=== PATIENT | female | born 1945 | race Caucasian/White ===

== ENCOUNTER 2017-11-19 14:23 | Observation (INO) | payer MEDICARE, OTHER, SELFPAY ==
[2017-11-19] VITALS (13 sets, daily range): BP systolic 150–209; BP diastolic 77–97; PULSE 72–80; RESP 12–18; TEMP 36.7–36.9; O2SAT 93–98; BMI 45.8; BMI 45.2
--- NOTE | 2017-11-19 14:29 | ED.RN ---
RESPIRATORY CALLED MULTIPLE TIMES FOR EKG, NO ANSWER. CHARGE NURSE MADE AWARE.
--- NOTE | 2017-11-19 15:19 | EKG12_ITS ---
Test Reason : CHEST TIGHTNESS Blood Pressure : / mmHG Vent. Rate : 068 BPM Atrial Rate : 068 BPM P-R Int : 168 ms QRS Dur : 098 ms QT Int : 416 ms P-R-T Axes : 040 008 051 degrees QTc Int : 442 ms Normal sinus rhythm Normal ECG Confirmed by NANETTE ROMERO, ROQUE ([id number]), editor magazine JULISA JEWELL ([id number] on 11/25/2017 2:01:51 PM Referred By: HELADIO/PAPO Confirmed By:ROQUE FITZPATRICK MD
[2017-11-19 15:32] LABS: Bacteria 0 SEEN /hpf (None Seen); Mucous, Urine 0 SEEN /hpf (<or=2+); Red Blood Cells-Urine 0 SEEN /hpf (0-5)
[2017-11-19 15:39] LABS: Color, Urine Yellow (Yellow); Glucose, Dipstick Normal (Normal); Ketone-Dipstick Negative (Negative); Leukocyte Esterase-Dipstick 500 /ul (Negative); Nitrite-Dipstick Negative (Negative); Occult Blood-Urine 10 /ul (Negative); Protein-Dipstick Negative (Negative); Urine Bilirubin Dipstick Negative (Negative); Urine Clarity Clear (Clear); Urine Urobilinogen Normal (Normal)
--- NOTE | 2017-11-19 15:50 | RAD_ITS ---
STUDY: X-RAY CHEST REASON FOR EXAM: Female, 72 years old. Hypertension. TECHNIQUE: Single AP portable view of the chest. COMPARISON: August 25, 2016 FINDINGS: The lungs are clear and expanded. Stable right upper lung granuloma. There is no demonstrated pleural abnormality. Normal size heart. Normal mediastinum and favian. Normal visualized pulmonary arteries. Normal visualized aortic arch and descending thoracic aorta. There are diffuse degenerative changes of the visualized thoracic spine. Normal visualized ribs, clavicles, and shoulders. There is no demonstrated abnormality of the visualized soft tissue structures of the upper abdomen. RAD/Chest 1 View (Portable) IMPRESSION: Degenerative changes, as described above. No demonstrated acute cardiopulmonary process. Electronically Signed: Rosales Peralta MD at 16:06 EST , Service support ,
[2017-11-19 15:54] LABS: Squamous Epithelial Cells - UA 0-5 SEEN /hpf (5-10); White Blood Cells 0-5 SEEN /hpf (0-5)
[2017-11-19 16:10] LABS: Absolute Lymphocyte Count 5.48 X10^3/ul (0.83-4.51); Basophil# 0.02 X10^3/uL; Basophil% 0.1 % (0-1); Differential Indicated SCAN CRITERIA MET; Eosinophil# 0.12 X10^3/uL; Eosinophils% 0.9 % (0-5); Hemoglobin 13.5 g/dl (12.0-15.0); Lymphocyte # 5.48 X10^3/ul (4.0); Lymphocyte % 39.3 % (19-41); Mean Corp Hgb Conc 32.1 g/gl (32-36); Mean Corpuscular Hgb 30.4 pg (27.0-32.0); Mean Corpuscular Volume 94.6 fL (81-99); Mean Platelet Vol. 10.4 fl (6.2-12.0); Monocyte# 1.28 X10^3/uL; Monocyte% 9.2 % (0-10); Neutrophil % 50.3 % (47-70); POSITIVE COUNT NO; POSITIVE DIFFERENTIAL YES; POSITIVE MORPHOLOGY NO; Platelet Count 230 K/mm3 (150-450); RBC Distribution Width CV 13.3 % (11.6-14.6); RBC Distribution Width SD 45.8 fl (35.1-43.9); Red Blood Count 4.44 M/mm3 (4.2-5.4); White Blood Count 13.9 K/mm3 (4.4-11.0)
[2017-11-19 16:27] LABS: AST(SGOT) 24 U/L (15-37); Alanine Aminotransfer ALT/SGPT 12 U/L (13-56); Albumin, Serum 3.7 g/dL (3.2-5.0); Alkaline Phosphatase 67 U/L (45-117); Anion Gap 8 (5-15); BUN 11 mg/dL (7-18); BUN/Creat Ratio 13.9 RATIO (10-20); Calcium,Total 9.3 mg/dL (8.5-10.1); Chloride 104 mmol/L (98-107); Creatinine, Serum 0.79 mg/dL (0.55-1.02); EST Glomerular Filtration Rate 75 mL/min (>60); Est Glom Filt Rate - Afr Amer 91 mL/min (>60); Estimated Creatinine Clearance 40.83 ml/min; Globulin 3.6 g/dL (2.2-4.2); Glucose 86 mg/dL (74-106); Potassium 3.4 mmol/L (3.5-5.1); Protein, Total 7.3 g/dL (6.4-8.2); Sodium Level 143 mmol/L (136-145)
[2017-11-19 16:34] LABS: Differential Comment SCANNED
[2017-11-19 16:35] LABS: Thyroid Stim Hormone (TSH) 1.94 uIU/mL (0.358-3.74)
[2017-11-19] MEDS: Acetaminophen 500 MG Tablet 1000 MG PO (18:04)
--- NOTE | 2017-11-19 18:33 | CT_ITS ---
STUDY: CT BRAIN WITHOUT CONTRAST REASON FOR EXAM: Female, 72 years old. Headache. Hypertension. RADIATION DOSAGE (If Supplied By Facility): CTDIvol = ( 44.99 ) mGy, DLP = ( 815.79 ) mGycm TECHNIQUE: Transaxial CT imaging of the brain was performed without administration of intravenous contrast material. Individualized dose optimization techniques were used for this CT. COMPARISON: None. FINDINGS: Normal soft tissue structures. Normal calvarium. There is mild cerebral atrophy with widening of the extra-axial spaces and ventricular dilatation. There are areas of decreased attenuation within the white matter tracts of the supratentorial brain, consistent with microvascular disease changes. Normal basal ganglia and thalami. Normal brainstem. Normal cerebellum. There is no intracranial hemorrhage. There are no findings of an acute ischemic infarction. There is mucoperiosteal inflammatory disease of the paranasal sinuses consistent with mild chronic sinusitis. CT/Brain/Head without Contrast IMPRESSION: Chronic involutional changes of the brain. Electronically Signed: Rosales Peralta MD at 19:08 EST , Service support ,
[2017-11-19] MEDS: DiphenhydrAMINE 50 MG/ML Syringe 12.5 MG IV (18:55)
--- NOTE | 2017-11-19 20:43 | PCM.HP.STD ---
Problem List (1) GERD (gastroesophageal reflux disease) Status: Chronic (2) Sleep apnea in adult Status: Suspected (3) Osteoarthritis Status: Chronic (4) Morbid obesity with BMI of 40.0-44.9, adult Status: Chronic (5) Peripheral neuropathy Status: Chronic (6) Hypertensive urgency, malignant Status: Acute (7) Restless leg syndrome Status: Suspected Comment: she attributes this to peripheral neuropathy but why does she have peripheral neuropathy? (8) Chest pain Status: Acute (9) Hypertensive urgency Status: Acute (10) Headache Status: Acute History of Present Illness Date of Admission: 11/19/17 Chief Complaint: Multiple complaints including chest pain, headache and uncontrolled hypertension. The patient is a 72 year old F with multiple comorbidities but no history of coronary artery disease came to ER with headache, chest pain and blood pressure was high. About 2 days ago, patient's chronic facial flushing got worse with filling of warmth, chest discomfort/pressure and mild lip swelling and went to ER and was sent home, with attribution to lisinopril 40 mg on which patient is on for more than 10 years. Then patient went to PCP today and found to have blood pressure 209/90 along with headache, mainly frontoparietal and behind the eyes but no blurry vision or dizziness. Patient also complained of chest pressure which is more localized on the left upper side. Patient is morbid obese and physically deconditioned but denies shortness of breath on exertion. Her walking is mainly affected by chronic lower back pain. Prior to that, she had pharmacological stress test in 07/2016 which was negative with EF 69%. Echo was done in July 2016 at that time and found to have EF 65% with no regional wall motion abnormality. Left ventricular normal size and systolic function. RV normal size and systolic function. LA mildly enlarged. Normal right atrium. No significant valvular stenosis/insufficiency other than mitral valve chordae are thickened and/or calcified. Patient blood pressure has been controlled even on lisinopril 40 mg and HCTZ 25 mg. In ED, her blood pressure was high. 210/78. No tachypnea/hypoxia or tachycardia. EKG shows normal sinus rhythm at [address]-T changes. No significant change from previous EKG of July 2016. [] Past Medical History Past Medical History (Chronic Problems): Chronic Problems GERD (gastroesophageal reflux disease) (Chronic) Osteoarthritis (Chronic) Morbid obesity with BMI of 40.0-44.9, adult (Chronic) Peripheral neuropathy (Chronic) Allergies bee pollen Allergy (Verified 11/19/17 14:24) Swelling erythromycin base [Erythromycin Base] Allergy (Verified 07/26/16 13:54) Rash lisinopril Allergy (Verified 11/19/17 14:24) Swelling latex Adverse Reaction (Verified 07/26/16 13:54) Swelling Home Medications: Ambulatory Orders Medication Instructions Recorded Multivitamins,Therapeutic 1 tablet PO DAILY 11/07/13 [Multivitamin] Aspirin [Aspirin, Baby] 81 mg PO DAILY@0800 03/11/15 Gabapentin [Neurontin] 300 mg PO TIDCM 03/11/15 Hydrochlorothiazide [Hctz] 25 mg PO DAILY 11/19/17 Meclizine HCl [Antivert] 25 mg PO TID PRN PRN 11/19/17 Paroxetine HCl [Paxil] 10 mg PO DAILY 11/19/17 Propranolol HCl [Inderal LA (Beta 60 mg PO DAILY 11/19/17 [place])] Surgical History: hysterectomy - Bilateral oophorectomy with 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 Psychiatric History: Anxiety, Depression, - - Patient suffered from anxiety/depression when her and was on Paxil but no longer takes this medication. FOOD SERVICES MANAGER History: No pertinent FOOD SERVICES MANAGER history, - - Benign ovarian mass Smoking Status: Never smoker - *Family History Paternal History Items: No pertinent history Maternal History Items: Hypertension Review of Systems Constitutional: Reports: Fatigue. Denies: Chills, Fever, Weight Change Eyes: Denies: Blurred vision, Redness, Vision Change HEENT: Reports: Head Aches, Sinus Congestion. Denies: Difficulty Hearing, Difficulty Swallowing, Sinus Drainage Cardiovascular: Reports: Chest Pressure. Denies: Chest Pain, Palpitations Respiratory: Denies: Cough, Shortness of breath at rest, Sputum production, Wheezing Gastrointestinal: Denies: Abdominal Pain, Nausea, Vomiting Genitourinary: Denies: Dysuria Musculoskeletal: Denies: Joint Pain, Joint Tenderness Skin: Denies: Rash, Wounds Neurological: Denies: Numbness, Tingling, Focal weakness Psychiatric: Denies: Anxiety, Depression, Homicidal Ideations, Suicidal Ideations Hematologic/ Lymphatic: Denies: Easy Bruising, Easy Bleeding VTE Information - Inpt Only VTE Present on Admission: No VTE Mechan Device Prophylaxis: SCD's VTE Pharm Prophylaxis ordered?: Yes Patient Problems: Active and Suspected Problems Chest pain (Acute) Hypertensive urgency (Acute) Headache (Acute) - Physical Exam General: Alert, Oriented x3, Cooperative HEENT: Atraumatic, PERRLA, EOMI, Normocephalic Neck: Supple, No JVD, Negative Carotid Bruits Lungs: Clear to auscultation, Normal air movement, No rhonchi, No wheeze, No rales Cardiovascular: Regular rate, Regular Rhythm, Normal S1, Normal S2, No murmurs Abdomen: Bowel Sounds Present, Soft, Non Tender, Non-Distended Extremities: Capillary Refill Less than 3 Seconds, Edema Skin: No rashes, No breakdown Musculoskeletal: No Tenderness to Palpation of Joints or Extremities, Arthritic Changes, - - Bilateral TKR Neurological: Cranial nerves II-XII grossly intact Psych/Mental Status: Normal Affect, Appropriate Vital Signs Temp Pulse Resp BP Pulse Ox 98.0 F 73 15 163/78 H 93 11/19/17 20:00 11/19/17 20:00 11/19/17 20:00 11/19/17 20:00 11/19/17 20:00 Oxygen Delivery Method Room Air Weight: 258 lb 13.163 oz Body Mass Index (BMI) 45.8 Laboratory Tests Past 24 Hrs 11/19/17 11/19/17 11/19/17 15:25 15:35 15:35 WBC 13.9 H RBC 4.44 Hgb 13.5 Hct 42.0 MCV 94.6 MCH 30.4 MCHC 32.1 RDW 13.3 RDW Differential 45.8 H Plt Count 230 MPV 10.4 Immature Gran % (Auto) 0.200 Neut % (Auto) 50.3 Lymph % (Auto) 39.3 [place] % (Auto) 9.2 Eos % (Auto) 0.9 Baso % (Auto) 0.1 Absolute Neuts (auto) 7.0 Absolute Lymphs (auto) 5.48 H Total Counted Not Reportable Differential Comment SCANNED Sodium 143 Potassium 3.4 L Chloride 104 Carbon Dioxide 31.0 Anion Gap 8 BUN 11 Creatinine 0.79 Estim Creat Clear Calc 40.83 Est GFR (MDRD) Af Amer 91 Est GFR (MDRD) Non-Af 75 BUN/Creatinine Ratio 13.9 Glucose 86 Calcium 9.3 Total Bilirubin 0.30 AST 24 ALT 12 L Alkaline Phosphatase 67 Troponin I < 0.02 Total Protein 7.3 Albumin 3.7 Globulin 3.6 Albumin/Globulin Ratio 1.0 TSH Urine Color Yellow Urine Clarity Clear Urine pH 7.0 Ur Specific [place] 1.010 Urine Protein Negative Urine Glucose (UA) Normal Urine Ketones Negative Urine Occult Blood 10 H Urine Nitrite Negative Urine Bilirubin Negative Urine Urobilinogen Normal Ur Leukocyte Esterase 500 H Urine RBC 0 SEEN Urine WBC 0-5 SEEN Ur Squamous Epith Cells 0-5 SEEN Urine Bacteria 0 SEEN Urine Mucus 0 SEEN 11/19/17 15:35 WBC RBC Hgb Hct MCV MCH MCHC RDW RDW Differential Plt Count MPV Immature Gran % (Auto) Neut % (Auto) Lymph % (Auto) [place] % (Auto) Eos % (Auto) Baso % (Auto) Absolute Neuts (auto) Absolute Lymphs (auto) Total Counted Differential Comment Sodium Potassium Chloride Carbon Dioxide Anion Gap BUN Creatinine Estim Creat Clear Calc Est GFR (MDRD) Af Amer Est GFR (MDRD) Non-Af BUN/Creatinine Ratio Glucose Calcium Total Bilirubin AST ALT Alkaline Phosphatase Troponin I Total Protein Albumin Globulin Albumin/Globulin Ratio TSH 1.94 Urine Color Urine Clarity Urine pH Ur Specific [place] Urine Protein Urine Glucose (UA) Urine Ketones Urine Occult Blood Urine Nitrite Urine Bilirubin Urine Urobilinogen Ur Leukocyte Esterase Urine RBC Urine WBC Ur Squamous Epith Cells Urine Bacteria Urine Mucus Assessment/Plan Active and Suspected Problems Chest pain (Acute) Hypertensive urgency (Acute) Headache (Acute) The patient is a 72 year old F with multiple comorbidities but no history of coronary artery disease came to ER with headache, chest pain and blood pressure was high. About 2 days ago, patient's chronic facial flushing got worse with filling of warmth, chest discomfort/pressure and mild lip swelling and went to ER and was sent home, with attribution to lisinopril 40 mg on which patient is on for more than 10 years. Then patient went to PCP today and found to have blood pressure 209/90 along with headache, mainly frontoparietal and behind the eyes but no blurry vision or dizziness. Patient also complained of chest pressure which is more localized on the left upper side. Patient is morbid obese and physically deconditioned but denies shortness of breath on exertion. Her walking is mainly affected by chronic lower back pain. Prior to that, she had pharmacological stress test in 07/2016 which was negative with EF 69%. Echo was done in July 2016 at that time and found to have EF 65% with no regional wall motion abnormality. Left ventricular normal size and systolic function. RV normal size and systolic function. LA mildly enlarged. Normal right atrium. No significant valvular stenosis/insufficiency other than mitral valve chordae are thickened and/or calcified. Patient blood pressure has been controlled even on lisinopril 40 mg and HCTZ 25 mg. In ED, her blood pressure was high. 210/78. No tachypnea/hypoxia or tachycardia. EKG shows normal sinus rhythm at [address]-T changes. No significant change from previous EKG of July 2016. [] 1. Atypical chest pain/pressure with uncontrolled blood pressure, hypertensive urgency: During previous admission in July 2016 she had similar problem chest pain and uncontrolled hypertension. ACS protocol with serial cardiac enzymes and Lexiscan stress test tomorrow morning. 2. Hypertensive urgency even on 3 medications, possible secondary hypertension: Renal artery duplex scan ordered. TSH is normal. Free T4 and serum cortisol ordered. On hydralazine p.o. scheduled and IV hydralazine as needed for systolic blood pressure more than 180 mmHg. Blood pressure still uncontrolled, will need to be further investigation for secondary hypertension by PCP or corporate general manager. Patient will also need outpatient sleep study to rule out possible cause for uncontrolled hypertension 3. Headache, flushing possible related to migraine/chronic headache/cervical neuropathy: Patient has not seen neurologist in the past. She had MRI brain in May 2015 which did not show acute change. She also had cervical spine MRI in 2014 which showed moderate/severe central canal/and foraminal stenosis at C5-C6 and C6-C7 with multilevel degenerative changes. Consult neurologist, Dr. Patel. 4. Mild hypokalemia: Patient also had hypokalemia during last admission. As an outpatient she needs to be ruled out for a adrenal cortical tumor/[place]'s syndrome/aldosteronoma/ renin-angiotensin aldosterone axis disorder, hormonal cause for secondary hypertension. Potassium replacement. 5. Other chronic disorders including morbid obesity, osteoarthritis of bilateral knees, hips and lumbar spine. Patient has peripheral neuropathy. DVT prophylaxis: On Lovenox 40 mg subcu daily and bilateral SCDs. Code Visit Inpatient E&M: 80037 Init Hosp L3
--- NOTE | 2017-11-19 20:57 | HP.PCM_ITS ---
Problem List (1) GERD (gastroesophageal reflux disease) Status: Chronic (2) Sleep apnea in adult Status: Suspected (3) Osteoarthritis Status: Chronic (4) Morbid obesity with BMI of 40.0-44.9, adult Status: Chronic (5) Peripheral neuropathy Status: Chronic (6) Hypertensive urgency, malignant Status: Acute (7) Restless leg syndrome Status: Suspected Comment: she attributes this to peripheral neuropathy but why does she have peripheral neuropathy? (8) Chest pain Status: Acute (9) Hypertensive urgency Status: Acute (10) Headache Status: Acute History of Present Illness Date of Admission: 11/19/17 Chief Complaint: Multiple complaints including chest pain, headache and uncontrolled hypertension. The patient is a 72 year old F with multiple comorbidities but no history of coronary artery disease came to ER with headache, chest pain and blood pressure was high. About 2 days ago, patient's chronic facial flushing got worse with filling of warmth, chest discomfort/pressure and mild lip swelling and went to ER and was sent home, with attribution to lisinopril 40 mg on which patient is on for more than 10 years. Then patient went to PCP today and found to have blood pressure 209/90 along with headache, mainly frontoparietal and behind the eyes but no blurry vision or dizziness. Patient also complained of chest pressure which is more localized on the left upper side. Patient is morbid obese and physically deconditioned but denies shortness of breath on exertion. Her walking is mainly affected by chronic lower back pain. Prior to that, she had pharmacological stress test in 07/2016 which was negative with EF 69%. Echo was done in July 2016 at that time and found to have EF 65% with no regional wall motion abnormality. Left ventricular normal size and systolic function. RV normal size and systolic function. LA mildly enlarged. Normal right atrium. No significant valvular stenosis/insufficiency other than mitral valve chordae are thickened and/or calcified. Patient blood pressure has been controlled even on lisinopril 40 mg and HCTZ 25 mg. In ED, her blood pressure was high. 210/78. No tachypnea/hypoxia or tachycardia. EKG shows normal sinus rhythm at [address]-T changes. No significant change from previous EKG of July 2016. [] Past Medical History Past Medical History (Chronic Problems): Chronic Problems GERD (gastroesophageal reflux disease) (Chronic) Osteoarthritis (Chronic) Morbid obesity with BMI of 40.0-44.9, adult (Chronic) Peripheral neuropathy (Chronic) Allergies bee pollen Allergy (Verified 11/19/17 14:24) Swelling erythromycin base [Erythromycin Base] Allergy (Verified 07/26/16 13:54) Rash lisinopril Allergy (Verified 11/19/17 14:24) Swelling latex Adverse Reaction (Verified 07/26/16 13:54) Swelling Home Medications: Ambulatory Orders Medication Instructions Recorded Multivitamins,Therapeutic 1 tablet PO DAILY 11/07/13 [Multivitamin] Aspirin [Aspirin, Baby] 81 mg PO DAILY@0800 03/11/15 Gabapentin [Neurontin] 300 mg PO TIDCM 03/11/15 Hydrochlorothiazide [Hctz] 25 mg PO DAILY 11/19/17 Meclizine HCl [Antivert] 25 mg PO TID PRN PRN 11/19/17 Paroxetine HCl [Paxil] 10 mg PO DAILY 11/19/17 Propranolol HCl [Inderal LA (Beta 60 mg PO DAILY 11/19/17 [place])] Surgical History: hysterectomy - Bilateral oophorectomy with 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 Psychiatric History: Anxiety, Depression, - - Patient suffered from anxiety/ depression when her and was on Paxil but no longer takes this medication. QUALITY FACILITATOR History: No pertinent QUALITY FACILITATOR history, - - Benign ovarian mass Smoking Status: Never smoker - *Family History Paternal History Items: No pertinent history Maternal History Items: Hypertension Review of Systems Constitutional: Reports: Fatigue. Denies: Chills, Fever, Weight Change Eyes: Denies: Blurred vision, Redness, Vision Change HEENT: Reports: Head Aches, Sinus Congestion. Denies: Difficulty Hearing, Difficulty Swallowing, Sinus Drainage Cardiovascular: Reports: Chest Pressure. Denies: Chest Pain, Palpitations Respiratory: Denies: Cough, Shortness of breath at rest, Sputum production, Wheezing Gastrointestinal: Denies: Abdominal Pain, Nausea, Vomiting Genitourinary: Denies: Dysuria Musculoskeletal: Denies: Joint Pain, Joint Tenderness Skin: Denies: Rash, Wounds Neurological: Denies: Numbness, Tingling, Focal weakness Psychiatric: Denies: Anxiety, Depression, Homicidal Ideations, Suicidal Ideations Hematologic/ Lymphatic: Denies: Easy Bruising, Easy Bleeding VTE Information - Inpt Only VTE Present on Admission: No VTE Mechan Device Prophylaxis: SCD's VTE Pharm Prophylaxis ordered?: Yes Patient Problems: Active and Suspected Problems Chest pain (Acute) Hypertensive urgency (Acute) Headache (Acute) - Physical Exam General: Alert, Oriented x3, Cooperative HEENT: Atraumatic, PERRLA, EOMI, Normocephalic Neck: Supple, No JVD, Negative Carotid Bruits Lungs: Clear to auscultation, Normal air movement, No rhonchi, No wheeze, No rales Cardiovascular: Regular rate, Regular Rhythm, Normal S1, Normal S2, No murmurs Abdomen: Bowel Sounds Present, Soft, Non Tender, Non-Distended Extremities: Capillary Refill Less than 3 Seconds, Edema Skin: No rashes, No breakdown Musculoskeletal: No Tenderness to Palpation of Joints or Extremities, Arthritic Changes, - - Bilateral TKR Neurological: Cranial nerves II-XII grossly intact Psych/Mental Status: Normal Affect, Appropriate Vital Signs Temp Pulse Resp BP Pulse Ox 98.0 F 73 15 163/78 H 93 11/19/17 20:00 11/19/17 20:00 11/19/17 20:00 11/19/17 20:00 11/19/17 20:00 Oxygen Delivery Method Room Air Weight: 258 lb 13.163 oz Body Mass Index (BMI) 45.8 Laboratory Tests Past 24 Hrs 11/19/17 11/19/17 11/19/17 15:25 15:35 15:35 WBC 13.9 H RBC 4.44 Hgb 13.5 Hct 42.0 MCV 94.6 MCH 30.4 MCHC 32.1 RDW 13.3 RDW Differential 45.8 H Plt Count 230 MPV 10.4 Immature Gran % (Auto) 0.200 Neut % (Auto) 50.3 Lymph % (Auto) 39.3 [place] % (Auto) 9.2 Eos % (Auto) 0.9 Baso % (Auto) 0.1 Absolute Neuts (auto) 7.0 Absolute Lymphs (auto) 5.48 H Total Counted Not Reportable Differential Comment SCANNED Sodium 143 Potassium 3.4 L Chloride 104 Carbon Dioxide 31.0 Anion Gap 8 BUN 11 Creatinine 0.79 Estim Creat Clear Calc 40.83 Est GFR (MDRD) Af Amer 91 Est GFR (MDRD) Non-Af 75 BUN/Creatinine Ratio 13.9 Glucose 86 Calcium 9.3 Total Bilirubin 0.30 AST 24 ALT 12 L Alkaline Phosphatase 67 Troponin I < 0.02 Total Protein 7.3 Albumin 3.7 Globulin 3.6 Albumin/Globulin Ratio 1.0 TSH Urine Color Yellow Urine Clarity Clear Urine pH 7.0 Ur Specific [place] 1.010 Urine Protein Negative Urine Glucose (UA) Normal Urine Ketones Negative Urine Occult Blood 10 H Urine Nitrite Negative Urine Bilirubin Negative Urine Urobilinogen Normal Ur Leukocyte Esterase 500 H Urine RBC 0 SEEN Urine WBC 0-5 SEEN Ur Squamous Epith Cells 0-5 SEEN Urine Bacteria 0 SEEN Urine Mucus 0 SEEN 11/19/17 15:35 WBC RBC Hgb Hct MCV MCH MCHC RDW RDW Differential Plt Count MPV Immature Gran % (Auto) Neut % (Auto) Lymph % (Auto) [place] % (Auto) Eos % (Auto) Baso % (Auto) Absolute Neuts (auto) Absolute Lymphs (auto) Total Counted Differential Comment Sodium Potassium Chloride Carbon Dioxide Anion Gap BUN Creatinine Estim Creat Clear Calc Est GFR (MDRD) Af Amer Est GFR (MDRD) Non-Af BUN/Creatinine Ratio Glucose Calcium Total Bilirubin AST ALT Alkaline Phosphatase Troponin I Total Protein Albumin Globulin Albumin/Globulin Ratio TSH 1.94 Urine Color Urine Clarity Urine pH Ur Specific [place] Urine Protein Urine Glucose (UA) Urine Ketones Urine Occult Blood Urine Nitrite Urine Bilirubin Urine Urobilinogen Ur Leukocyte Esterase Urine RBC Urine WBC Ur Squamous Epith Cells Urine Bacteria Urine Mucus Assessment/Plan Active and Suspected Problems Chest pain (Acute) Hypertensive urgency (Acute) Headache (Acute) The patient is a 72 year old F with multiple comorbidities but no history of coronary artery disease came to ER with headache, chest pain and blood pressure was high. About 2 days ago, patient's chronic facial flushing got worse with filling of warmth, chest discomfort/pressure and mild lip swelling and went to ER and was sent home, with attribution to lisinopril 40 mg on which patient is on for more than 10 years. Then patient went to PCP today and found to have blood pressure 209/90 along with headache, mainly frontoparietal and behind the eyes but no blurry vision or dizziness. Patient also complained of chest pressure which is more localized on the left upper side. Patient is morbid obese and physically deconditioned but denies shortness of breath on exertion. Her walking is mainly affected by chronic lower back pain. Prior to that, she had pharmacological stress test in 07/2016 which was negative with EF 69%. Echo was done in July 2016 at that time and found to have EF 65% with no regional wall motion abnormality. Left ventricular normal size and systolic function. RV normal size and systolic function. LA mildly enlarged. Normal right atrium. No significant valvular stenosis/insufficiency other than mitral valve chordae are thickened and/or calcified. Patient blood pressure has been controlled even on lisinopril 40 mg and HCTZ 25 mg. In ED, her blood pressure was high. 210/78. No tachypnea/hypoxia or tachycardia. EKG shows normal sinus rhythm at [address]-T changes. No significant change from previous EKG of July 2016. [] 1. Atypical chest pain/pressure with uncontrolled blood pressure, hypertensive urgency: During previous admission in July 2016 she had similar problem chest pain and uncontrolled hypertension. ACS protocol with serial cardiac enzymes and Lexiscan stress test tomorrow morning. 2. Hypertensive urgency even on 3 medications, possible secondary hypertension : Renal artery duplex scan ordered. TSH is normal. Free T4 and serum cortisol ordered. On hydralazine p.o. scheduled and IV hydralazine as needed for systolic blood pressure more than 180 mmHg. Blood pressure still uncontrolled, will need to be further investigation for secondary hypertension by PCP or evp strategy. Patient will also need outpatient sleep study to rule out possible cause for uncontrolled hypertension 3. Headache, flushing possible related to migraine/chronic headache/cervical neuropathy: Patient has not seen neurologist in the past. She had MRI brain in May 2015 which did not show acute change. She also had cervical spine MRI in 2014 which showed moderate/severe central canal/and foraminal stenosis at C5-C6 and C6-C7 with multilevel degenerative changes. Consult neurologist, Dr. Patel. 4. Mild hypokalemia: Patient also had hypokalemia during last admission. As an outpatient she needs to be ruled out for a adrenal cortical tumor/Campbell's syndrome/aldosteronoma/ renin-angiotensin aldosterone axis disorder, hormonal cause for secondary hypertension. Potassium replacement. 5. Other chronic disorders including morbid obesity, osteoarthritis of bilateral knees, hips and lumbar spine. Patient has peripheral neuropathy. DVT prophylaxis: On Lovenox 40 mg subcu daily and bilateral SCDs. Code Visit Inpatient E&M: 34449 Init Hosp L3
[2017-11-19 22:01] LABS: Magnesium 1.9 mg/dL (1.6-2.6); T4 Free Direct 1.19 ng/dL (0.76-1.46)
[2017-11-19 22:07] LABS: BNP,B-Type NATRIURETIC PEPTIDE 37.3 pg/mL (0-100)
[2017-11-19] MEDS: Gabapentin 300 MG Capsule PO (22:32)
[2017-11-19] MEDS: Enoxaparin 40 MG/0.4 ML Syringe SC (22:34)
[2017-11-19] MEDS: oxyCODONE 5 MG Tablet PO (23:09)
[2017-11-20] VITALS (7 sets, daily range): BP systolic 125–155; BP diastolic 59–74; PULSE 59–72; RESP 16; TEMP 36.5–36.7; O2SAT 98–99
--- NOTE | 2017-11-20 00:29 | ED.VISSUMM ---
- ER Visit Summary Date of Service: 11/20/17 Chief Complaint: Hypertension History of Present Illness: The patient is a 72 F who was sent from her PCPs office today with a blood pressure of 2 9 systolic. Patient notes chest pain and headache. Patient states that she has episodes where her blood pressure is very high. She states that she has episodes of facial flushing feels weak when that happens. 2 days ago she had an episode with some lip swelling and went to [place] he was felt to have angioedema related to her lisinopril. Lisinopril stopped and she was to follow-up with her PCP today. The patient states that she takes hydrochlorothiazide as well as propranolol. The propranolol however has been for muscle tremor is dose at 60 mg once a day. Patient has a history of morbid obesity hypertension sleep apnea RLS. Patient tells me she has been on many different blood pressure regimens and none of the been able to control her blood pressure. 2016 she is admitted to the hospital for hypertensive urgency and negatives stress test. She states she has not seen cardiology or nephrology for hypertension. She denies any known renal artery scan or other workup for secondary cause of hypertension Physical Examination: Blood pressure 209/78 temperature 98.5 heart rate 72 respirations are 18 pulse ox 97% Gen: Well-nourished well-developed Head: Normocephalic atraumatic has some facial flushing Eyes: Perrl EOMI ENT: TMs clear no rhinorrhea moist mucous membranes Neck: Supple no lymphadenopathy no JVD nontender CVS: Regular rate rhythm no murmurs normal S1-S2 Respiratory: No distress clear to auscultation bilaterally chest nontender Abdomen: Soft nontender nondistended normal bowel sounds no masses Back: Nontender Extremity: Nontender no edema Skin: Normal color no rash Neuro: alert orientated ?3 CN II-XII intact normal strength sensation reflexes gait cerebellar Psych: Normal affect normal mood Test Results: EKG sinus at a rate of 68 chest x-ray negative CT the brain negative CBC chemistries showed a potassium 3.4 and a white count of 13.9. Troponin negative TSH 1.94. Emergency Department Course and Treatment: She received several doses of hydralazine which improved her blood pressure however the patient continued to have headache. The chest pain resolved. Patient notes that when her face gets very flushed she often times has diarrhea and some skin itching. She received a dose of Benadryl and some Pepcid here. Family states that perhaps the facial flushing is somewhat improved afterwards. However the patient continues to feel poorly. She does not feel safe going home. I think it is reasonable to bring her in. Impression:. Hypertensive urgency This note was generated with [employer] dictation software. It may contain incorrect words, spelling, and punctuation that were not noted in review of the chart prior to signing ED Disposition - Plan for ED Patient: Disposition: Acute Care Hospital [facility] Chief Complaint: Hypertension
[2017-11-20] MEDS: Aspirin 81 MG TAB.CHEW PO (05:48)
--- NOTE | 2017-11-20 05:55 | EKG12_ITS ---
Test Reason : AM EKG Blood Pressure : / mmHG Vent. Rate : 058 BPM Atrial Rate : 058 BPM P-R Int : 170 ms QRS Dur : 094 ms QT Int : 470 ms P-R-T Axes : 046 009 052 degrees QTc Int : 461 ms Sinus bradycardia Nonspecific T wave abnormality Abnormal ECG When compared with ECG of 19-NOV-2017 14:42, MANUAL COMPARISON REQUIRED, DATA IS UNCONFIRMED Confirmed by NANETTE ROMERO, ROQUE ([id number]), newspaper managing editor JULISA JEWELL ([id number]) on 11/26/2017 1:19:19 PM Referred By: DR MURILLO Confirmed By:ROQUE FITZPATRICK MD
[2017-11-20 06:52] LABS: Absolute Lymphocyte Count 4.69 X10^3/ul (0.83-4.51); Absolute Neutrophil Count 2.9 X10^3/uL (2.0-7.7); Basophil# 0.02 X10^3/uL; Basophil% 0.2 % (0-1); Eosinophils% 2.4 % (0-5); Hematocrit 42.1 % (37-47); Hemoglobin 13.4 g/dl (12.0-15.0); Lymphocyte # 4.69 X10^3/ul (4.0); Lymphocyte % 55.1 % (19-41); Mean Corp Hgb Conc 31.8 g/gl (32-36); Mean Corpuscular Hgb 30.7 pg (27.0-32.0); Mean Corpuscular Volume 96.6 fL (81-99); Monocyte# 0.72 X10^3/uL; Monocyte% 8.5 % (0-10); Neutrophil # 2.86 X10^3/uL (2.7-7.7); Neutrophil % 33.6 % (47-70); Platelet Count 218 K/mm3 (150-450); RBC Distribution Width CV 13.5 % (11.6-14.6); RBC Distribution Width SD 47.6 fl (35.1-43.9); Red Blood Count 4.36 M/mm3 (4.2-5.4); White Blood Count 8.5 K/mm3 (4.4-11.0)
[2017-11-20 06:58] LABS: POSITIVE COUNT NO; POSITIVE DIFFERENTIAL NO; POSITIVE MORPHOLOGY NO
[2017-11-20 07:07] LABS: Prothrombin Time (Protime)PT. 13.6 SECONDS (11.7-14.9)
[2017-11-20 07:08] LABS: Partial Thromboplast Time 33.9 Seconds (24.1-36.2)
[2017-11-20 07:17] LABS: Anion Gap 7 (5-15); BUN 11 mg/dL (7-18); BUN/Creat Ratio 13.6 RATIO (10-20); Calcium,Total 8.9 mg/dL (8.5-10.1); Chloride 104 mmol/L (98-107); Cholesterol 173 mg/dL (200); Creatinine, Serum 0.81 mg/dL (0.55-1.02); EST Glomerular Filtration Rate 74 mL/min (>60); Est Glom Filt Rate - Afr Amer 89 mL/min (>60); Estimated Creatinine Clearance 50.41 ml/min; Glucose 92 mg/dL (74-106); High Density Lipoprotein 41 mg/dL; Potassium 3.7 mmol/L (3.5-5.1); Sodium Level 143 mmol/L (136-145); Thyroid Stim Hormone (TSH) 8.05 uIU/mL (0.358-3.74); Triglycerides 166 mg/dL; Very Low Density Lipoprotein 33 mg/dL (5-40)
--- NOTE | 2017-11-20 08:32 | STRESSREP ---
Stress Test Report Pharmacologic myocardial perfusion stress test. 72-year-old lady with a history of chest pain. Stress protocol: Resting EKG demonstrates normal sinus rhythm with a rate of 63 bpm normal intervals noted. Resting blood pressure is 140/90 mmHg. 0.4 mg of regadenoson was infused per usual protocol followed by rapid intravenous saline flush injection continuous EKG monitoring was performed. The patient maintained sinus rhythm throughout the recording. At rest there were no ST or T-wave changes noted suggest abnormal flow reserve at peak infusion no ST or T-wave changes were noted suggest abnormal flow reserve. The maximum heart rate was 96 bpm which was 65% of the maximum predicted heart rate. The maximum workload was 1 metabolic equivalent. The resting blood pressure was 140/90 mmHg. Myocardial perfusion protocol. 14.8 mCi of technetium 99m sestamibi was injected at rest. 0.4 mg of regadenoson was infused per usual protocol. At peak infusion 44.5 mCi of 90 9M sestamibi was injected. Stress images were obtained. Stress and rest images were reconstructed and compared in the short axis vertical long and horizontal long axis. Gated images were also obtained. Perfusion SPECT analysis: Review of the stress images demonstrate normal uptake of tracer noted in all areas myocardium except for small portion of the apex this is present on the stress and resting images suggestive of mild apical perfusion abnormality. No obvious ischemia is noted. No previous infarct is present. Gated SPECT analysis. The gated ejection fraction is 79%. Conclusion: Normal pharmacologic myocardial perfusion stress test.
[2017-11-20] MEDS: hydroCHLOROthiazide 25 MG Tablet PO (08:41)
[2017-11-20] MEDS: Multivitamins,Therapeutic Tablet 1 TABLET PO (08:41)
[2017-11-20] MEDS: Gabapentin 300 MG Capsule PO ×2 (08:41→11:22)
[2017-11-20] MEDS: amLODIPine 5 MG Tablet PO (08:41)
[2017-11-20] MEDS: PARoxetine 10 MG Tablet PO (08:41)
[2017-11-20] MEDS: Propranolol LA 60 MG Capsule PO (08:41)
--- NOTE | 2017-11-20 10:32 | DCINST_ITS ---
- Discharge Diagnoses Current Active Problems: Current Active and Chronic Problems Chest pain (Acute) Hypertensive urgency (Acute) Headache (Acute) You will use the following diet at home:: Cardiac Discharge Activity: Return to Normal Activity Call your doctor if you observe: Shortness of breath, Dizziness, Fainting spells , Chest pain, Increased palpitations (irregular heartbeat) Allergies/Adverse Reactions: Allergies bee pollen Allergy (Verified 11/19/17 14:24) Swelling erythromycin base [Erythromycin Base] Allergy (Verified 07/26/16 13:54) Rash lisinopril Allergy (Verified 11/19/17 14:24) Swelling latex Adverse Reaction (Verified 07/26/16 13:54) Swelling Medications to take at Discharge Multivitamins,Therapeutic [Multivitamin] 1 tablet PO DAILY 11/07/13 Aspirin [Aspirin, Baby] 81 mg PO DAILY@0800 03/11/15 Gabapentin [Neurontin] 300 mg PO TIDCM 03/11/15 Hydrochlorothiazide [Hctz] 25 mg PO DAILY 11/19/17 Meclizine HCl [Antivert] 25 mg PO TID PRN PRN 11/19/17 Paroxetine HCl [Paxil] 5 mg PO DAILY 11/19/17 Propranolol HCl [Inderal LA (Beta [place])] 60 mg PO DAILY 11/19/17 Amlodipine [Norvasc] 5 mg PO DAILY #30 tab 11/20/17 HydrALAZINE [Apresoline] 25 mg PO TID #90 tab 11/20/17 The following prescriptions were given: Amlodipine [Norvasc] 5 mg PO DAILY #30 tab HydrALAZINE [Apresoline] 25 mg PO TID #90 tab Primary Care Physician: Ba Thomas DO [Primary Care Provider] - Please follow up with your Primary Care Physician in: 3-5 Days Please Follow Up With: Kalani Giles DO - Nephrology When: 1-2 Weeks Please Follow Up With: Norma Patel MD - Neurology When: 1-2 Weeks Proposed Discharge Date: 11/20/17
--- NOTE | 2017-11-20 10:34 | DS.PCM_ITS ---
Addendum entered and electronically signed by FAISAL Kumar 11/20/17 11:27: Code Visit Renal ultrasound was not able to be completed prior to discharge due to patient eating prior to test. Patient can complete ultrasound as outpatient if found necessary by nephrology. Patient had previous renal ultrasound 11/09/2015 which showed no evidence of aneurysmal dilation or stenosis. Original Note: Discharge Date and Diagnosis Date of Admission: 11/19/17 Date of Discharge: 11/20/17 - Primary Discharge Diagnosis Active and Suspected Problems 1. Chest pain- ACS ruled out 2. Hypertensive urgency 3. Acute on chronic headache 4. Mild hypokalemia-resolved - Secondary Discharge Diagnosis Chronic Problems GERD (gastroesophageal reflux disease) (Chronic) Osteoarthritis (Chronic) Morbid obesity with BMI of 40.0-44.9, adult (Chronic) Peripheral neuropathy (Chronic) Hospital Course and Treatment Imaging Results: Diagnostic Data Chest X-Ray 11/19/17 15:50 IMPRESSION: Degenerative changes, as described above. No demonstrated acute cardiopulmonary process. Electronically Signed: Rosales Peralta MD at 16:06 EST , Service support , Brain CT 11/19/17 18:33 IMPRESSION: Chronic involutional changes of the brain. Electronically Signed: Rosales Peralta MD at 19:08 EST , Service support , Operations: None Procedures: Stress test Summary of Care Provided: The patient is a 72 year old F admitted 11/19/17 due to chest pain, headache and uncontrolled hypertension. She has a past medical history of uncontrolled hypertension, peripheral neuropathy, morbid obesity, osteoarthritis, obstructive sleep apnea, GERD, restless leg syndrome, history of migraines. Patient states her primary care physician has had difficulty controlling her blood pressure for years. Patient went to primary care physician prior to admission and blood pressure was noted to be 209/90. Patient complained of associated headache. Denies other neurological symptoms. Patient had echo in July 2016 which showed an EF of 65%. EKG without evidence of ischemia. Patient underwent nuclear stress test which was negative for ischemia. Troponin negative ?4. ACS ruled out. Headache resolved. Suspect headache noted on admission was secondary to hypertensive urgency. Amlodipine 5 mg daily and hydralazine 25 mg 3 times daily were added to patient's home regimen. Her blood pressure is improved on current regimen. Blood pressure at discharge 155/74. Patient denies further chest discomfort. Renal ultrasound ordered and pending at discharge to assess for secondary causes of uncontrolled hypertension. She will need further follow-up with nephrology at discharge in 1 -2 weeks. She will follow-up with primary care physician in 3-5 days for further blood pressure monitoring. Recommend follow-up with neurology as outpatient for history of chronic headache/migraine. MRI of cervical spine in 2014 showed moderate to severe central canal and foraminal stenosis at C5-C6 and C6-C7 with multilevel degenerative changes. Patient was noted to have mild hypokalemia on admission which was replaced orally and resolved. Other chronic medical conditions as noted above are stable at this time. Patient is stable for discharge home to follow-up with primary care physician, nephrology and neurology. Patient had an initial TSH drawn which was 1.9. TSH 8.0 on repeat draw. Repeated for unknown reason. Free T4 normal. Recommend continued monitoring by primary care physician. Patient seen and examined prior to discharge. Blood pressure stable as noted above. Patient denies chest pain, shortness of breath, dizziness, palpitations. Denies further headache. Heart regular in rate and rhythm. Lungs clear. Abdomen soft, nontender, obese. Neuro grossly intact. This patient was seen by FAISAL Kumar under the supervision of Dr. Palmer. Discharge Diet: Low fat/ Low Cholesterol, 2000 mg Sodium Diet Discharge Activity: Return to Normal Activity Call your doctor if you observe: Shortness of breath, Dizziness, Fainting spells , Chest pain, Increased palpitations (irregular heartbeat) Home Medications: Medications to take at Discharge Multivitamins,Therapeutic [Multivitamin] 1 tablet PO DAILY 11/07/13 Aspirin [Aspirin, Baby] 81 mg PO DAILY@0800 03/11/15 Gabapentin [Neurontin] 300 mg PO TIDCM 03/11/15 Hydrochlorothiazide [Hctz] 25 mg PO DAILY 11/19/17 Meclizine HCl [Antivert] 25 mg PO TID PRN PRN 11/19/17 Paroxetine HCl [Paxil] 5 mg PO DAILY 11/19/17 Propranolol HCl [Inderal LA (Beta [place])] 60 mg PO DAILY 11/19/17 Amlodipine [Norvasc] 5 mg PO DAILY #30 tab 11/20/17 HydrALAZINE [Apresoline] 25 mg PO TID #90 tab 11/20/17 Following Prescrptions Were Given to Patient: Amlodipine [Norvasc] 5 mg PO DAILY #30 tab HydrALAZINE [Apresoline] 25 mg PO TID #90 tab Primary Care Physician: Ba Thomas DO [Primary Care Provider] - Please follow up with your Primary Care Physician in: 3-5 Days Please Follow Up With: Kalani Giles DO - Nephrology When: 1-2 Weeks Please Follow Up With: Norma Patel MD - Neurology When: 1-2 Weeks Disposition: Home Minutes spent on discharge:: 35 Patient Condition:: Stable Meaningful Use Info Meaningful Use Diagnoses (Choose all that apply): None applicable
== END 2017-11-20 10:31 | disposition home or self-care (01) ==
LOC: ED 19:26 → PCU 20:43
PROVIDERS: Admitting Provider Internal Medicine; Emergency Provider Emergency Medicine; Family Provider Student in an Organized Health Care Education/Training Program; PCP Student in an Organized Health Care Education/Training Program; Visit Provider Family Medicine
DX: I16.0 Hypertensive urgency (principal); I10 Essential (primary) hypertension; G47.33 Obstructive sleep apnea (adult) (pediatric); K21.9 Gastro-esophageal reflux disease without esophagitis; M19.90 Unspecified osteoarthritis, unspecified site; E66.01 Morbid (severe) obesity due to excess calories; G25.81 Restless legs syndrome; E87.6 Hypokalemia; G62.9 Polyneuropathy, unspecified; Z68.42 Body mass index [BMI] 45.0-49.9, adult; Z71.3 Dietary counseling and surveillance; Z91.11 Patient's noncompliance with dietary regimen; Z79.899 Other long term (current) drug therapy; Z79.82 Long term (current) use of aspirin; G89.29 Other chronic pain; M54.5 Low back pain; M17.0 Bilateral primary osteoarthritis of knee; M47.896 Other spondylosis, lumbar region; M16.0 Bilateral primary osteoarthritis of hip
CPT/HCPCS: 36415; 70450; 71045; 78452; 80048; 80053; 80061; 81001; 82533; 83735; 83880; 84132; 84439; 84443; 84484; 85025; 85610; 85730; 93005; 93017; 96372; 96374; 96375; 96376; 99218; 99282; A9500; A4216; G0378; J2785; J3490

== ENCOUNTER → 2017-11-27 10:43 | Outpatient (CLI) | payer MEDICARE, OTHER, SELFPAY | PROVIDERS: Family Provider Student in an Organized Health Care Education/Training Program; PCP Student in an Organized Health Care Education/Training Program; Visit Provider Internal Medicine Nephrology | DX: I10 Essential (primary) hypertension (principal); R30.0 Dysuria | CPT/HCPCS: 36415; 86038; 87086; 87088 ==

== ENCOUNTER → 2017-11-28 11:00 | Outpatient (CLI) | payer MEDICARE, OTHER, SELFPAY ==
[2017-11-28 11:43] LABS: Hematocrit 41.1 % (37-47); Hemoglobin 13.5 g/dl (12.0-15.0); Mean Corp Hgb Conc 32.8 g/gl (32-36); Mean Corpuscular Hgb 31.3 pg (27.0-32.0); Mean Corpuscular Volume 95.4 fL (81-99); Mean Platelet Vol. 10.4 fl (6.2-12.0); Platelet Count 221 K/mm3 (150-450); RBC Distribution Width CV 13.1 % (11.6-14.6); RBC Distribution Width SD 44.3 fl (35.1-43.9); Red Blood Count 4.31 M/mm3 (4.2-5.4); White Blood Count 8.7 K/mm3 (4.4-11.0)
[2017-11-28 11:44] LABS: Scan Indicated on CBC? Y/N NO
[2017-11-28 12:17] LABS: Vitamin B12 > 2000 pg/mL (211-911)
[2017-11-28 12:19] LABS: AST(SGOT) 17 U/L (15-37); Alanine Aminotransfer ALT/SGPT 13 U/L (13-56); Albumin, Serum 3.5 g/dL (3.2-5.0); Alkaline Phosphatase 65 U/L (45-117); Anion Gap 5 (5-15); BUN 11 mg/dL (7-18); BUN/Creat Ratio 15.7 RATIO (10-20); Calcium,Total 9.1 mg/dL (8.5-10.1); Chloride 105 mmol/L (98-107); EST Glomerular Filtration Rate 87 mL/min (>60); Est Glom Filt Rate - Afr Amer 105 mL/min (>60); Free T3 2.3 pg/mL (2.18-3.98); Globulin 3.4 g/dL (2.2-4.2); Glucose 91 mg/dL (74-106); Magnesium 1.9 mg/dL (1.6-2.6); Phosphorus 3.7 mg/dL (2.5-4.9); Potassium 3.8 mmol/L (3.5-5.1); Protein, Total 6.9 g/dL (6.4-8.2); Sodium Level 141 mmol/L (136-145); T4 Free Direct 1.15 ng/dL (0.76-1.46); Thyroid Stim Hormone (TSH) 2.15 uIU/mL (0.358-3.74)
== END ==
PROVIDERS: Family Provider Student in an Organized Health Care Education/Training Program; PCP Student in an Organized Health Care Education/Training Program; Visit Provider Nurse Practitioner Acute Care
DX: E04.9 Nontoxic goiter, unspecified (principal); R51 Headache; R42 Dizziness and giddiness
CPT/HCPCS: 36415; 80053; 82607; 83735; 84100; 84439; 84443; 84481; 85027

== ENCOUNTER → 2017-12-02 12:11 | Outpatient (CLI) | payer MEDICARE, OTHER, SELFPAY ==
--- NOTE | 2017-12-02 12:14 | US_ITS ---
STUDY: THYROID ULTRASOUND REASON FOR EXAM: Female, 72 years old. Elevated TSH levels. TECHNIQUE: Ultrasound evaluation of the thyroid was performed with real-time and static goff-scale imaging. COMPARISON: None. FINDINGS: RIGHT LOBE: The right lobe of the thyroid gland measures 4.0 cm x 1.6 cm x 1.8 cm. There is a homogeneous echotexture. There are no demonstrated solid, cystic or complex lesions. LEFT LOBE: The left lobe of the thyroid gland measures 3.5 cm x 1.1 cm x 1.1 cm. There is a homogeneous echotexture. There are no demonstrated solid, cystic or complex lesions. ISTHMUS: The isthmus measures 3.0 mm. The regional lymph nodes are normal. US/Thyroid IMPRESSION: Normal ultrasound examination of the thyroid. Electronically Signed: Osman Almanzar MD at 9:54 EDT Tel [phone], Service support ,
== END ==
PROVIDERS: Family Provider Student in an Organized Health Care Education/Training Program; PCP Student in an Organized Health Care Education/Training Program; Visit Provider Nurse Practitioner Acute Care
DX: E04.9 Nontoxic goiter, unspecified (principal); R94.6 Abnormal results of thyroid function studies
CPT/HCPCS: 76536

== ENCOUNTER → 2017-12-05 11:57 | Outpatient (CLI) | payer MEDICARE, OTHER, SELFPAY ==
[2017-12-05 13:24] LABS: Rheumatoid Factor < 10.0 IU/mL (<15)
[2017-12-08 14:49] LABS: Anti-dsDNA Ab 1 IU/mL (0-9)
[2017-12-08 16:09] LABS: Complement C3 150 mg/dL (82-167)
[2017-12-09 10:18] LABS: Complement CH50 58 U/mL (42-60)
== END ==
PROVIDERS: Family Provider Student in an Organized Health Care Education/Training Program; PCP Student in an Organized Health Care Education/Training Program; Visit Provider Internal Medicine Nephrology
DX: I10 Essential (primary) hypertension (principal); R76.8 Other specified abnormal immunological findings in serum
CPT/HCPCS: 36415; 86160; 86162; 86225; 86431

== ENCOUNTER → 2018-01-06 11:22 | Outpatient (CLI) | payer MEDICARE, OTHER, SELFPAY ==
[2018-01-06 12:20] LABS: Albumin, Serum 3.4 g/dL (3.2-5.0); BUN 11 mg/dL (7-18); BUN/Creat Ratio 15.3 RATIO (10-20); Calcium,Total 9.2 mg/dL (8.5-10.1); Chloride 101 mmol/L (98-107); Creatinine, Serum 0.72 mg/dL (0.55-1.02); EST Glomerular Filtration Rate 84 mL/min (>60); Est Glom Filt Rate - Afr Amer 102 mL/min (>60); Glucose 82 mg/dL (74-106); Phosphorus 2.6 mg/dL (2.5-4.9); Potassium 3.2 mmol/L (3.5-5.1); Sodium Level 142 mmol/L (136-145)
[2018-01-09 11:33] LABS: Anti-Histone Abs 1.8 Units (0.0-0.9)
[2018-01-14 12:08] LABS: Dopamine, UR 264 ug/L (Undefined); Epinephrine, 24Ur 8 ug/24 hr (0-20); Epinephrine, Ur 10 ug/L (Undefined); Metanephrine, Ur 246 ug/L (Undefined); Norepinephrine, 24Ur 74 ug/24 hr (0-135); Norepinephrine, Ur 92 ug/L (Undefined); Normetanephrines, Ur 835 ug/L (Undefined)
[2018-01-14 12:56] LABS: Dopamine, 24Ur 211 ug/24 hr (0-510); Metanephrines, 24Ur 197 ug/24 hr (45-290); Normetanephrines, 24Ur 668 ug/24 hr (82-500)
== END ==
PROVIDERS: Family Provider Student in an Organized Health Care Education/Training Program; PCP Student in an Organized Health Care Education/Training Program; Visit Provider Internal Medicine Nephrology
DX: I10 Essential (primary) hypertension (principal)
CPT/HCPCS: 36415; 80069; 82384; 83835; 86235

== ENCOUNTER 2018-02-27 12:16 | Emergency (ER) | payer MEDICARE, OTHER, SELFPAY ==
--- NOTE | 2018-02-27 12:16 | DT_ITS ---
This patient was seen during an EMR downtime February 23, 2018 - March 02, 2018. This patient may have a combination of paper and electronic documentation or all paper documentation. All documentation is viewable within the e-chart portion of [employer] for each patient visit.
--- NOTE | 2018-02-27 12:16 | DT_ITS ---
This patient was seen during an EMR downtime February 23, 2018 - March 02, 2018. This patient may have a combination of paper and electronic documentation or all paper documentation. All documentation is viewable within the e-chart portion of [employer] for each patient visit.
--- NOTE | 2018-02-27 12:38 | CT_ITS ---
STUDY: CT BRAIN WITHOUT CONTRAST REASON FOR EXAM: Female, 72 years old. Headache, hypertension RADIATION DOSAGE (If Supplied By Facility): CTDIvol = ( 44.99 ) mGy, DLP = ( 863.60 ) mGycm TECHNIQUE: Transaxial CT imaging of the brain was performed without administration of intravenous contrast material. Individualized dose optimization techniques were used for this CT. COMPARISON: November 19, 2017 FINDINGS: The soft tissues are unremarkable. The osseous structures are unremarkable. Normal size ventricles and extra-axial spaces for the patient's age. There are scattered areas of decreased attenuation within the white matter tracts of the supratentorial brain, likely microvascular changes. The basal ganglia and thalami are unremarkable. No abnormalities are seen in the brainstem. The cerebellum is unremarkable. There is no intracranial hemorrhage. There are no findings of acute ischemia. There is minimal mucosal thickening in the lower left maxillary sinus. CT/Brain/Head without Contrast IMPRESSION: No acute intracranial abnormalities or changes. There are stable chronic findings. Electronically Signed: Rose Marie Riojas MD at 14:04 EDT Tel Direct: [phone], Service support ,
[2018-03-02 15:47] LABS: Red Blood Count 4.62 M/mm3 (4.2-5.4); White Blood Count 8.7 K/mm3 (4.4-11.0)
[2018-03-02 15:48] LABS: Absolute Lymphocyte Count 3.16 X10^3/ul (0.83-4.51); Absolute Neutrophil Count 4.2 X10^3/uL (2.0-7.7); Basophil# 0.02 X10^3/uL; Basophil% 0.2 % (0-1); Eosinophil# 0.46 X10^3/uL; Eosinophils% 5.3 % (0-5); Hematocrit 43.6 % (37-47); Hemoglobin 14.2 g/dl (12.0-15.0); Lymphocyte # 3.16 X10^3/ul (4.0); Lymphocyte % 36.5 % (19-41); Mean Corp Hgb Conc 32.6 g/gl (32-36); Mean Corpuscular Hgb 30.7 pg (27.0-32.0); Mean Corpuscular Volume 94.4 fL (81-99); Mean Platelet Vol. 10.3 fl (6.2-12.0); Monocyte# 0.76 X10^3/uL; Monocyte% 8.8 % (0-10); Neutrophil # 4.24 X10^3/uL (2.7-7.7); POSITIVE COUNT NO; POSITIVE DIFFERENTIAL NO; POSITIVE MORPHOLOGY NO; Platelet Count 215 K/mm3 (150-450); RBC Distribution Width CV 13.4 % (11.6-14.6); RBC Distribution Width SD 44.9 fl (35.1-43.9)
[2018-03-02 21:04] LABS: Anion Gap 8 (5-15); BUN 8 mg/dL (7-18); BUN/Creat Ratio 11.8 RATIO (10-20); Calcium,Total 9.3 mg/dL (8.5-10.1); Chloride 108 mmol/L (98-107); Creatinine, Serum 0.68 mg/dL (0.55-1.02); EST Glomerular Filtration Rate 90 mL/min (>60); Est Glom Filt Rate - Afr Amer 109 mL/min (>60); Glucose 95 mg/dL (74-106); Potassium 3.8 mmol/L (3.5-5.1); Sodium Level 145 mmol/L (136-145)
== END 2018-02-27 13:10 | disposition home or self-care (01) ==
LOC: ED 17:14
PROVIDERS: Emergency Provider Emergency Medicine; Family Provider Student in an Organized Health Care Education/Training Program; PCP Student in an Organized Health Care Education/Training Program
DX: I10 Essential (primary) hypertension (principal); M54.5 Low back pain; G89.29 Other chronic pain; E78.00 Pure hypercholesterolemia, unspecified; M19.90 Unspecified osteoarthritis, unspecified site; F32.9 Major depressive disorder, single episode, unspecified; G47.33 Obstructive sleep apnea (adult) (pediatric); G62.9 Polyneuropathy, unspecified; E04.9 Nontoxic goiter, unspecified; Z79.82 Long term (current) use of aspirin; Z79.899 Other long term (current) drug therapy
CPT/HCPCS: 70450; 80048; 85025; 96374; 96375; 99284; A4216; J2405

== ENCOUNTER 2018-03-02 08:25 | Emergency (ER) | payer MEDICARE, OTHER, SELFPAY ==
[2018-03-02 08:25] VITALS: PULSE 75; RESP 20; TEMP 36.6; O2SAT 98; BMI 44.2
--- NOTE | 2018-03-02 08:25 | DT_ITS ---
This patient was seen during an EMR downtime February 23, 2018 - March 02, 2018. This patient may have a combination of paper and electronic documentation or all paper documentation. All documentation is viewable within the e-chart portion of [employer] for each patient visit.
--- NOTE | 2018-03-02 08:33 | ED.RN ---
UNABLE TO OBTAIN BP IN TRIAGE
[2018-03-02 08:36] VITALS: BP 223/92
--- NOTE | 2018-03-02 08:48 | EKG12_ITS ---
Test Reason : HTN Blood Pressure : / mmHG Vent. Rate : 066 BPM Atrial Rate : 066 BPM P-R Int : 164 ms QRS Dur : 094 ms QT Int : 408 ms P-R-T Axes : 053 017 038 degrees QTc Int : 427 ms Normal sinus rhythm Normal ECG Confirmed by ROQUE FITZPATRICK MD ([id number]), tape editor JULISA JEWELL ([id number] on 03/04/2018 5:58:56 PM Referred By: ANGELICA Confirmed By:ROQUE FITZPATRICK MD
--- NOTE | 2018-03-02 08:49 | RAD_ITS ---
STUDY: X-RAY - LUMBAR SPINE REASON FOR EXAM: Female, 72 years old. BACK PAIN X 2 YEARS, NKI, HX NEUROPATHY TECHNIQUE: 3 view(s) of the lumbar spine were obtained. COMPARISON: None FINDINGS: Normal lumbar lordosis. There is mild scoliosis. There is a grade 1 anterolisthesis at L4/L5. There is multilevel endplate spondylosis of the lumbar vertebrae. There is multi-level degenerative disc disease with multi-level disc space narrowing. The soft tissue structures are unremarkable. RAD/Lumbar Spine 2 or 3 Views IMPRESSION: Degenerative changes of the spine. Electronically Signed: Viktoria Samaniego MD at 9:54 EDT Tel , Service support ,
--- NOTE | 2018-03-02 08:49 | ED.VISSUMM ---
- ER Visit Summary Date of Service: 03/02/18 Chief Complaint: High blood pressure and back pain History of Present Illness: The patient is a 72 F with history of chronic back pain and hypertension who presents for several days of elevated blood pressure and worsening back pain. Patient was seen 3 days ago for the same complaint. Patient states that she normally gets injections in her lower back for back pain that is been going on for 2 years. It is recently gotten worse, and she is scheduled for an injection tomorrow. Her blood pressure has been running high for the last several days, anywhere from 170-220 systolic at home. She is on blood pressure medication at home and states that her medications had been changed within the last few months by her doctors. She is complaining of associated worsening blurred vision, nausea, and a low-grade headache, for which she had a CT scan done on Friday. She denies any chest pain, shortness of breath, abdominal pain, vomiting or diarrhea, or neck pain. No history of stroke, coronary artery disease, diabetes. 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 Patient is allergic to lisinopril, as she gets angioedema. Physical Examination: Vital signs: afebrile, hypertensive at 223/92, no hypoxia on room air General: well nourished, well developed, laying in bed and appears uncomfortable, nontoxic appearing Skin: warm, dry, no rash, no pallor HEENT: normocephalic and atraumatic; PERRL, EOMI, moist mucous membranes Cardiovascular: regular rate and rhythm without murmurs, no peripheral edema, 2+ pulses all distal extremities, upper and lower Respiratory: No increased work of breathing, lungs are clear to auscultation bilaterally, no rales, rhonchi or wheezing Abdominal: Abdomen is soft, nontender with normoactive bowel sounds, no guarding or rebound, no masses Back: No midline tenderness deformities or step-offs. Negative leg raise bilaterally. MSK: Moves all extremities, no deformities, normal strength Neuro: Awake and alert, oriented ?4. No facial droop, sensation and motor function intact and symmetric Test Results: Abnormal Lab Results 03/02/18 03/02/18 03/02/18 02:05 09:05 09:05 WBC 7.6 RBC 4.59 Hgb 13.7 Hct 43.1 MCV 93.9 MCH 29.8 MCHC 31.8 L RDW 13.3 RDW Differential 45.7 H Plt Count 215 MPV 10.0 Immature Gran % (Auto) 0.100 Neut % (Auto) 48.0 Lymph % (Auto) 38.3 [place] % (Auto) 8.2 Eos % (Auto) 5.1 H Baso % (Auto) 0.3 Absolute Neuts (auto) 3.6 Absolute Lymphs (auto) 2.91 Total Counted Not Reportable Sodium 141 Potassium 3.7 Chloride 105 Carbon Dioxide 30.0 Anion Gap 6 BUN 15 Creatinine 0.75 Est GFR (MDRD) Af Amer 97 Est GFR (MDRD) Non-Af 80 BUN/Creatinine Ratio 19.9 Glucose 97 Calcium 9.6 Troponin I < 0.015 Urine Color Yellow Urine Clarity Sl. Cloudy Urine pH 8.0 Ur Specific [place] 1.010 Urine Protein Negative Urine Glucose (UA) Normal Urine Ketones Negative Urine Occult Blood 10 H Urine Nitrite Negative Urine Bilirubin Negative Urine Urobilinogen Normal Ur Leukocyte Esterase 100 H Urine RBC 0-5 SEEN Urine WBC 10-25 SEEN Ur Squamous Epith Cells 0-5 SEEN Urine Bacteria 0 SEEN Urine Mucus 0 SEEN Clinical Impression(s) from Imaging Studies Lumbar Spine X-Ray 03/02/18 08:49 IMPRESSION: Degenerative changes of the spine. Electronically Signed: Viktoria Samaniego MD at 9:54 EDT Tel , Service support , Emergency Department Course and Treatment: Patient presents with significant hypertension, for which she is been evaluated already but was unable to see her primary care doctor yet. Given that patient is having severe back pain, she was given a dose of IV morphine for pain control to see if this will also help her blood pressure. Patient's blood pressure is in the lumbosacral region, mainly in the left paraspinal region, and thus acute aortic dissection as the cause of her increased back pain is very unlikely. Showed no renal dysfunction, troponin was normal, no leukocytosis, anemia, or any other lab derangements. Urine was positive for pyuria, and patient had initially denied any urinary symptoms but now states she has had some burning with urination. She was started on Keflex for UTI. Culture is pending. X-ray of the lumbar spine showed no acute fractures or dislocations. It did show degenerative changes, which are expected. Upon reevaluation, patient's pain was much improved after the morphine. Her blood pressure had also improved to 199/86. Patient was discussed with Loreta, the nurse practitioner for Dr. Thomas. They have been attempting over a prolonged period of time to get patient's blood pressure better controlled, and today Loreta requested patient's clonidine be increased to 3 times a day instead of just once a day. Patient also is to follow-up with her in the office tomorrow morning at 820. This plan was discussed with the patient, who is in agreement. She was discharged home in improved condition. Treatment Plan: [] Disposition: [] Impression: Uncontrolled hypertension, acute on chronic back pain, acute cystitis This note was generated with [employer] dictation software. It may contain incorrect words, spelling, and punctuation that were not noted in review of the chart prior to signing ED Disposition - Plan for ED Patient: Disposition: Home or Assisted Living Chief Complaint: Hypertension Instructions: ED Chronic Pain Management, ED Hypertension Conf Out Of Control, ED UTI Cystitis Female Prescriptions: Cephalexin [Keflex] 500 mg PO BID #14 cap Referrals: Ba Thomas DO [Primary Care Provider] - 1 Day Additional Instructions: Please increase your clonidine 0.1 mg to 3 times daily as requested by your primary care doctor's office. Follow-up with Loreta the nurse practitioner at 820 tomorrow morning for reevaluation. If you have any worsening of your condition or any new concerning symptoms, please return immediately to the emergency department for another evaluation.
--- NOTE | 2018-03-02 08:53 | ED.DCSUM_ITS ---
- ER Visit Summary Date of Service: 03/02/18 Chief Complaint: High blood pressure and back pain History of Present Illness: The patient is a 72 F with history of chronic back pain and hypertension who presents for several days of elevated blood pressure and worsening back pain. Patient was seen 3 days ago for the same complaint. Patient states that she normally gets injections in her lower back for back pain that is been going on for 2 years. It is recently gotten worse, and she is scheduled for an injection tomorrow. Her blood pressure has been running high for the last several days, anywhere from 170-220 systolic at home. She is on blood pressure medication at home and states that her medications had been changed within the last few months by her doctors. She is complaining of associated worsening blurred vision, nausea, and a low-grade headache, for which she had a CT scan done on Friday. She denies any chest pain, shortness of breath, abdominal pain, vomiting or diarrhea, or neck pain. No history of stroke, coronary artery disease, diabetes. 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 Patient is allergic to lisinopril, as she gets angioedema. Physical Examination: Vital signs: afebrile, hypertensive at 223/92, no hypoxia on room air General: well nourished, well developed, laying in bed and appears uncomfortable , nontoxic appearing Skin: warm, dry, no rash, no pallor HEENT: normocephalic and atraumatic; PERRL, EOMI, moist mucous membranes Cardiovascular: regular rate and rhythm without murmurs, no peripheral edema, 2 + pulses all distal extremities, upper and lower Respiratory: No increased work of breathing, lungs are clear to auscultation bilaterally, no rales, rhonchi or wheezing Abdominal: Abdomen is soft, nontender with normoactive bowel sounds, no guarding or rebound, no masses Back: No midline tenderness deformities or step-offs. Negative leg raise bilaterally. MSK: Moves all extremities, no deformities, normal strength Neuro: Awake and alert, oriented ?4. No facial droop, sensation and motor function intact and symmetric Test Results: Abnormal Lab Results 03/02/18 03/02/18 03/02/18 02:05 09:05 09:05 WBC 7.6 RBC 4.59 Hgb 13.7 Hct 43.1 MCV 93.9 MCH 29.8 MCHC 31.8 L RDW 13.3 RDW Differential 45.7 H Plt Count 215 MPV 10.0 Immature Gran % (Auto) 0.100 Neut % (Auto) 48.0 Lymph % (Auto) 38.3 [place] % (Auto) 8.2 Eos % (Auto) 5.1 H Baso % (Auto) 0.3 Absolute Neuts (auto) 3.6 Absolute Lymphs (auto) 2.91 Total Counted Not Reportable Sodium 141 Potassium 3.7 Chloride 105 Carbon Dioxide 30.0 Anion Gap 6 BUN 15 Creatinine 0.75 Est GFR (MDRD) Af Amer 97 Est GFR (MDRD) Non-Af 80 BUN/Creatinine Ratio 19.9 Glucose 97 Calcium 9.6 Troponin I < 0.015 Urine Color Yellow Urine Clarity Sl. Cloudy Urine pH 8.0 Ur Specific [place] 1.010 Urine Protein Negative Urine Glucose (UA) Normal Urine Ketones Negative Urine Occult Blood 10 H Urine Nitrite Negative Urine Bilirubin Negative Urine Urobilinogen Normal Ur Leukocyte Esterase 100 H Urine RBC 0-5 SEEN Urine WBC 10-25 SEEN Ur Squamous Epith Cells 0-5 SEEN Urine Bacteria 0 SEEN Urine Mucus 0 SEEN Clinical Impression(s) from Imaging Studies Lumbar Spine X-Ray 03/02/18 08:49 IMPRESSION: Degenerative changes of the spine. Electronically Signed: Viktoria Samaniego MD at 9:54 EDT Tel , Service support , Emergency Department Course and Treatment: Patient presents with significant hypertension, for which she is been evaluated already but was unable to see her primary care doctor yet. Given that patient is having severe back pain, she was given a dose of IV morphine for pain control to see if this will also help her blood pressure. Patient's blood pressure is in the lumbosacral region, mainly in the left paraspinal region, and thus acute aortic dissection as the cause of her increased back pain is very unlikely. Showed no renal dysfunction , troponin was normal, no leukocytosis, anemia, or any other lab derangements. Urine was positive for pyuria, and patient had initially denied any urinary symptoms but now states she has had some burning with urination. She was started on Keflex for UTI. Culture is pending. X-ray of the lumbar spine showed no acute fractures or dislocations. It did show degenerative changes, which are expected. Upon reevaluation, patient's pain was much improved after the morphine. Her blood pressure had also improved to 199/86. Patient was discussed with Loreta, the nurse practitioner for Dr. Thomas. They have been attempting over a prolonged period of time to get patient's blood pressure better controlled, and today Loreta requested patient's clonidine be increased to 3 times a day instead of just once a day. Patient also is to follow-up with her in the office tomorrow morning at 820. This plan was discussed with the patient, who is in agreement. She was discharged home in improved condition. Treatment Plan: [] Disposition: [] Impression: Uncontrolled hypertension, acute on chronic back pain, acute cystitis This note was generated with [employer] dictation software. It may contain incorrect words, spelling, and punctuation that were not noted in review of the chart prior to signing ED Disposition - Plan for ED Patient: Disposition: Home or Assisted Living Chief Complaint: Hypertension Instructions: ED Chronic Pain Management, ED Hypertension Conf Out Of Control, ED UTI Cystitis Female Prescriptions: Cephalexin [Keflex] 500 mg PO BID #14 cap Referrals: Ba Thomas DO [Primary Care Provider] - 1 Day Additional Instructions: Please increase your clonidine 0.1 mg to 3 times daily as requested by your primary care doctor's office. Follow-up with Loreta the nurse practitioner at 820 tomorrow morning for reevaluation. If you have any worsening of your condition or any new concerning symptoms, please return immediately to the emergency department for another evaluation.
[2018-03-02] MEDS: Ondansetron 4 MG/2 ML Vial IV (09:04)
[2018-03-02] MEDS: morphine 8 MG/ML Syringe IV (09:05)
[2018-03-02 09:08] VITALS: O2SAT 96
[2018-03-02 09:10] LABS: Bacteria 0 SEEN /hpf (None Seen); Mucous, Urine 0 SEEN /hpf (<or=2+)
[2018-03-02 09:21] LABS: Color, Urine Yellow (Yellow); Glucose, Dipstick Normal (Normal); Ketone-Dipstick Negative (Negative); Leukocyte Esterase-Dipstick 100 /ul (Negative); Nitrite-Dipstick Negative (Negative); Occult Blood-Urine 10 /ul (Negative); Protein-Dipstick Negative (Negative); Urine Bilirubin Dipstick Negative (Negative); Urine Clarity Sl. Cloudy (Clear); Urine Urobilinogen Normal (Normal)
[2018-03-02 09:21] LABS: Absolute Lymphocyte Count 2.91 X10^3/ul (0.83-4.51); Absolute Neutrophil Count 3.6 X10^3/uL (2.0-7.7); Basophil# 0.02 X10^3/uL; Basophil% 0.3 % (0-1); Eosinophil# 0.39 X10^3/uL; Eosinophils% 5.1 % (0-5); Hematocrit 43.1 % (37-47); Hemoglobin 13.7 g/dl (12.0-15.0); Lymphocyte # 2.91 X10^3/ul (4.0); Lymphocyte % 38.3 % (19-41); Mean Corp Hgb Conc 31.8 g/gl (32-36); Mean Corpuscular Hgb 29.8 pg (27.0-32.0); Mean Corpuscular Volume 93.9 fL (81-99); Monocyte# 0.62 X10^3/uL; Monocyte% 8.2 % (0-10); Neutrophil # 3.64 X10^3/uL (2.7-7.7); Platelet Count 215 K/mm3 (150-450); RBC Distribution Width CV 13.3 % (11.6-14.6); RBC Distribution Width SD 45.7 fl (35.1-43.9); Red Blood Count 4.59 M/mm3 (4.2-5.4); White Blood Count 7.6 K/mm3 (4.4-11.0)
[2018-03-02 09:22] LABS: POSITIVE COUNT NO; POSITIVE DIFFERENTIAL NO; POSITIVE MORPHOLOGY NO
[2018-03-02 09:30] LABS: Squamous Epithelial Cells - UA 0-5 SEEN /hpf (5-10)
[2018-03-02 09:31] LABS: Red Blood Cells-Urine 0-5 SEEN /hpf (0-5); White Blood Cells 10-25 SEEN /hpf (0-5)
[2018-03-02 09:40] LABS: Anion Gap 6 (5-15); BUN 15 mg/dL (7-18); BUN/Creat Ratio 19.9 RATIO (10-20); Calcium,Total 9.6 mg/dL (8.5-10.1); Chloride 105 mmol/L (98-107); Creatinine, Serum 0.75 mg/dL (0.55-1.02); EST Glomerular Filtration Rate 80 mL/min (>60); Est Glom Filt Rate - Afr Amer 97 mL/min (>60); Glucose 97 mg/dL (74-106); Potassium 3.7 mmol/L (3.5-5.1); Sodium Level 141 mmol/L (136-145)
[2018-03-02 10:08] VITALS: BP 194/83
--- NOTE | 2018-03-02 10:25 | ED.DEP ---
ED Disposition - Plan for ED Patient: Disposition: Home or Assisted Living Chief Complaint: Hypertension Instructions: ED Chronic Pain Management, ED Hypertension Conf Out Of Control, ED UTI Cystitis Female Prescriptions: Cephalexin [Keflex] 500 mg PO BID #14 cap Referrals: Ba Thomas DO [Primary Care Provider] - 1 Day Additional Instructions: Please increase your clonidine 0.1 mg to 3 times daily as requested by your primary care doctor's office. Follow-up with Loreta magana nurse practitioner at 820 tomorrow morning for reevaluation. If you have any worsening of your condition or any new concerning symptoms, please return immediately to the emergency department for another evaluation.
[2018-03-02 10:49] VITALS: BP 201/69; PULSE 71; RESP 16; O2SAT 97
== END 2018-03-02 10:59 | disposition home or self-care (01) ==
PROVIDERS: Emergency Provider Emergency Medicine; Family Provider Student in an Organized Health Care Education/Training Program; PCP Student in an Organized Health Care Education/Training Program
DX: I10 Essential (primary) hypertension (principal); N30.00 Acute cystitis without hematuria; B96.89 Other specified bacterial agents as the cause of diseases classified elsewhere; M54.5 Low back pain; G89.29 Other chronic pain; Z90.5 Acquired absence of kidney
CPT/HCPCS: 72100; 80048; 81001; 84484; 85025; 87086; 87088; 93005; 96374; 96375; 99284; A4216; J2405

== ENCOUNTER → 2018-03-10 12:09 | Outpatient (CLI) | payer MEDICARE, OTHER, SELFPAY ==
[2018-03-12 13:48] LABS: Anti-Histone Abs 2.5 Units (0.0-0.9)
== END ==
PROVIDERS: Family Provider Student in an Organized Health Care Education/Training Program; PCP Student in an Organized Health Care Education/Training Program; Visit Provider Internal Medicine Nephrology
DX: R76.8 Other specified abnormal immunological findings in serum (principal)
CPT/HCPCS: 36415; 86235

== ENCOUNTER → 2018-03-18 16:43 | Outpatient (CLI) | payer MEDICARE, OTHER, SELFPAY ==
--- NOTE | 2018-03-18 16:48 | CT_ITS ---
STUDY: CT ABDOMEN WITH AND WITHOUT CONTRAST REASON FOR EXAM: Female, 72 years old. Hypertensive disorder. Attention adrenals. RADIATION DOSAGE (If Supplied By Facility): CTDIvol = ( 31.82 ) mGy, DLP = ( 2429.47 ) mGycm TECHNIQUE: Transaxial images were obtained pre and post I.V. administration of 100ML ml of Isovue 300, and oral contrast. Sagittal and coronal images were reconstructed. Individualized dose optimization techniques were used for this CT. COMPARISON: CT of the chest dated June 13, 2012 FINDINGS: The visualized lung bases are unremarkable. The visualized portions of the heart are within normal limits. There are stable hepatic granulomas. There are multiple gallstones. There are multiple benign calcified granulomata of the spleen. Normal pancreas. The adrenal glands are stable. No discrete nodules are visualized. Normal right kidney. Normal left kidney. Normal visualized stomach. There are mildly prominent perigastric lymph nodes that may be reactive. Normal small intestine. Normal colon. The appendix is visualized and appears normal. There is mild stranding within the mesentery likely secondary to a prior inflammation. Normal abdominal aorta. Normal inferior vena cava. Normal retroperitoneum. Normal abdominal wall. Normal osseous structures. CT/Abdomen WITH IV Contrast IMPRESSION: No adrenal lesions identified. Cholelithiasis. Hepatic and splenic granulomas. Electronically Signed: Bianca Enciso MD at 18:14 EDT Tel , Service support ,
== END ==
PROVIDERS: Family Provider Student in an Organized Health Care Education/Training Program; PCP Student in an Organized Health Care Education/Training Program; Visit Provider Internal Medicine Nephrology
DX: I10 Essential (primary) hypertension (principal)
CPT/HCPCS: 74160; Q9967

== ENCOUNTER → 2018-04-09 14:41 | Outpatient (CLI) | payer MEDICARE, OTHER, SELFPAY ==
[2018-04-09 17:33] LABS: Absolute Lymphocyte Count 2.86 X10^3/ul (0.83-4.51); Absolute Neutrophil Count 4.4 X10^3/uL (2.0-7.7); Basophil# 0.02 X10^3/uL; Basophil% 0.2 % (0-1); Eosinophil# 0.24 X10^3/uL; Eosinophils% 2.9 % (0-5); Hematocrit 46.3 % (37-47); Hemoglobin 15.1 g/dl (12.0-15.0); Lymphocyte # 2.86 X10^3/ul (4.0); Lymphocyte % 34.9 % (19-41); Mean Corp Hgb Conc 32.6 g/gl (32-36); Mean Corpuscular Hgb 30.8 pg (27.0-32.0); Mean Corpuscular Volume 94.3 fL (81-99); Mean Platelet Vol. 10.4 fl (6.2-12.0); Monocyte# 0.71 X10^3/uL; Monocyte% 8.7 % (0-10); Neutrophil # 4.36 X10^3/uL (2.7-7.7); Neutrophil % 53.2 % (47-70); POSITIVE COUNT NO; POSITIVE DIFFERENTIAL NO; POSITIVE MORPHOLOGY NO; Platelet Count 217 K/mm3 (150-450); RBC Distribution Width CV 13.5 % (11.6-14.6); RBC Distribution Width SD 45.6 fl (35.1-43.9); Red Blood Count 4.91 M/mm3 (4.2-5.4); White Blood Count 8.2 K/mm3 (4.4-11.0)
[2018-04-09 17:42] LABS: ALB/GLOB Ratio 1.1 RATIO (0.9-2.4); AST(SGOT) 20 U/L (15-37); Alanine Aminotransfer ALT/SGPT 18 U/L (13-56); Alkaline Phosphatase 76 U/L (45-117); Anion Gap 8 (5-15); BUN 14 mg/dL (7-18); BUN/Creat Ratio 19.2 RATIO (10-20); Calcium,Total 9.9 mg/dL (8.5-10.1); Chloride 104 mmol/L (98-107); Creatinine, Serum 0.73 mg/dL (0.55-1.02); EST Glomerular Filtration Rate 83 mL/min (>60); Est Glom Filt Rate - Afr Amer 100 mL/min (>60); Globulin 3.7 g/dL (2.2-4.2); Glucose 112 mg/dL (74-106); Potassium 3.3 mmol/L (3.5-5.1); Protein, Total 7.7 g/dL (6.4-8.2); Sodium Level 143 mmol/L (136-145); Thyroid Stim Hormone (TSH) 1.64 uIU/mL (0.358-3.74)
[2018-04-10 08:22] LABS: Vitamin D,25 Hydroxy 29.9 ng/mL (29.95-100.01)
[2018-04-13 12:20] LABS: Hep C Antibodies 0.1 s/co ratio (0.0-0.9)
== END ==
PROVIDERS: Family Provider Family Medicine Geriatric Medicine; PCP Family Medicine Geriatric Medicine; Visit Provider Family Medicine Geriatric Medicine
DX: E55.9 Vitamin D deficiency, unspecified (principal); I10 Essential (primary) hypertension; Z13.89 Encounter for screening for other disorder
CPT/HCPCS: 36415; 80053; 82306; 84443; 85025; 86803

== ENCOUNTER → 2018-05-05 15:11 | Outpatient (CLI) | payer MEDICARE, OTHER, SELFPAY | PROVIDERS: Family Provider Family Medicine Geriatric Medicine; PCP Family Medicine Geriatric Medicine; Visit Provider Family Medicine Geriatric Medicine | DX: Z12.31 Encounter for screening mammogram for malignant neoplasm of breast (principal); Z78.0 Asymptomatic menopausal state | CPT/HCPCS: 77063; 77067 ==

== ENCOUNTER → 2018-05-06 10:06 | Outpatient (CLI) | payer MEDICARE, OTHER, SELFPAY ==
[2018-05-06 12:31] LABS: Color, Urine Amber (Yellow); Glucose, Dipstick Normal (Normal); Ketone-Dipstick 5 mg/dl (Negative); Leukocyte Esterase-Dipstick 500 /ul (Negative); Nitrite-Dipstick Negative (Negative); Occult Blood-Urine 10 /ul (Negative); Protein-Dipstick 30 mg/dl (Negative); Specific Gravity, Urine 1.025 (1.002-1.030); Urine Clarity Sl. Cloudy (Clear); Urine Urobilinogen 4 mg/dl (Normal)
[2018-05-06 12:36] LABS: Urine Bilirubin Dipstick 1 mg/dL (Negative)
[2018-05-06 12:43] LABS: Erythrocyte Sedimentation Rate 8 mm/hr (0-30)
[2018-05-06 12:54] LABS: Absolute Neutrophil Count 4.5 X10^3/uL (2.0-7.7); Basophil# 0.02 X10^3/uL; Basophil% 0.2 % (0-1); Eosinophils% 3.2 % (0-5); Hemoglobin 13.5 g/dl (12.0-15.0); Lymphocyte % 42.2 % (19-41); Mean Corp Hgb Conc 31.4 g/gl (32-36); Mean Corpuscular Volume 95.6 fL (81-99); Mean Platelet Vol. 10.3 fl (6.2-12.0); Monocyte# 0.62 X10^3/uL; Monocyte% 6.5 % (0-10); Neutrophil # 4.51 X10^3/uL (2.7-7.7); Neutrophil % 47.7 % (47-70); Platelet Count 206 K/mm3 (150-450); RBC Distribution Width CV 13.9 % (11.6-14.6); RBC Distribution Width SD 48.1 fl (35.1-43.9); White Blood Count 9.5 K/mm3 (4.4-11.0)
[2018-05-06 12:57] LABS: POSITIVE COUNT NO; POSITIVE DIFFERENTIAL NO; POSITIVE MORPHOLOGY NO
[2018-05-06 12:58] LABS: ALB/GLOB Ratio 0.9 RATIO (0.9-2.4); AST(SGOT) 16 U/L (15-37); Alanine Aminotransfer ALT/SGPT 16 U/L (13-56); Albumin, Serum 3.4 g/dL (3.2-5.0); Alkaline Phosphatase 63 U/L (45-117); Anion Gap 11 (5-15); BUN 15 mg/dL (7-18); BUN/Creat Ratio 19.4 RATIO (10-20); CRP 6.89 mg/L (0.0-3.0); Calcium,Total 9.1 mg/dL (8.5-10.1); Chloride 103 mmol/L (98-107); Creatinine, Serum 0.78 mg/dL (0.55-1.02); EST Glomerular Filtration Rate 77 mL/min (>60); Est Glom Filt Rate - Afr Amer 93 mL/min (>60); Globulin 3.6 g/dL (2.2-4.2); Glucose 80 mg/dL (74-106); Potassium 3.2 mmol/L (3.5-5.1); Rheumatoid Factor < 10.0 IU/mL (<15); Sodium Level 145 mmol/L (136-145)
[2018-05-06 13:01] LABS: Protein, Urine (Random) 27.6 mg/dL (<11.9); Protein:Creat Ratio 66 mg/g CRE (0-200)
[2018-05-07 14:06] LABS: Anti-Centromere B Ab <0.2 AI (0.0-0.9); Anti-Jo <0.2 AI (0.0-0.9); Anti-Scleroderma-70 AB 3.3 AI (0.0-0.9); RNP Ab <0.2 AI (0.0-0.9); SJOGREN'S Anti-SS-A test 0.3 AI (0.0-0.9); SJOGREN'S Anti-SS-B test < 0.2 AI (0.0-0.9); Smith Ab <0.2 AI (0.0-0.9)
[2018-05-07 14:48] LABS: ANTINUCLEAR ANTIBODIES DIRECT Positive (Negative); Anti-dsDNA Ab 1 IU/mL (0-9)
[2018-05-08 03:07] LABS: Complement C3 168 mg/dL (82-167)
[2018-05-08 11:18] LABS: CCP IgG Antibodies 10 units (0-19); HEPATITIS B SURFACE AG Negative (Negative); Hep B Surface Antibodies Non Reactive (.); Hep C Antibodies 0.1 s/co ratio (0.0-0.9)
== END ==
PROVIDERS: Family Provider Family Medicine Geriatric Medicine; PCP Family Medicine Geriatric Medicine; Visit Provider Internal Medicine Rheumatology
DX: Z78.0 Asymptomatic menopausal state (principal); M51.37 Other intervertebral disc degeneration, lumbosacral region; M47.897 Other spondylosis, lumbosacral region; I10 Essential (primary) hypertension; E78.5 Hyperlipidemia, unspecified; G47.33 Obstructive sleep apnea (adult) (pediatric); Z90.5 Acquired absence of kidney
CPT/HCPCS: 36415; 77080; 80053; 81002; 82570; 84156; 85025; 85652; 86038; 86140; 86160; 86200; 86225; 86235; 86431; 86706; 86803; 87340

== ENCOUNTER 2018-06-07 12:01 | Inpatient (IN) | payer MEDICARE, OTHER, SELFPAY ==
[2018-06-07] VITALS (11 sets, daily range): BP systolic 148–205; BP diastolic 66–122; PULSE 61–74; RESP 13–20; TEMP 36.4–37.1; O2SAT 93–100; BMI 40.3; BMI 46.2
--- NOTE | 2018-06-07 12:21 | CT_ITS ---
STUDY: CT BRAIN WITHOUT CONTRAST REASON FOR EXAM: Female, 72 years old. Numbness and tingling RADIATION DOSAGE (If Supplied By Facility): CTDIvol = ( 44.99 ) mGy, DLP = ( 829.85 ) mGycm TECHNIQUE: Transaxial CT imaging of the brain was performed without administration of intravenous contrast material. Sagittal and coronal reconstructed images are provided and reviewed. Individualized dose optimization techniques were used for this CT. COMPARISON: 02/27/2018 FINDINGS: Normal soft tissue structures. Normal calvarium. There is mild cerebral atrophy with widening of the extra-axial spaces and ventricular dilatation. There are areas of decreased attenuation within the white matter tracts of the supratentorial brain, consistent with microvascular disease changes. Normal basal ganglia and thalami. Normal brainstem. Normal cerebellum. There is no intracranial hemorrhage. There are no findings of an acute ischemic infarction. Small mucosal attention cysts are seen within the left maxillary sinus. CT/Brain/Head without Contrast IMPRESSION: Chronic involutional changes. No acute intracranial abnormality. Electronically Signed: Jeff Juarez DO at 13:37 EDT Tel , Service support ,
--- NOTE | 2018-06-07 12:22 | EKG12_ITS ---
Test Reason : Blood Pressure : / mmHG Vent. Rate : 061 BPM Atrial Rate : 061 BPM P-R Int : 174 ms QRS Dur : 094 ms QT Int : 416 ms P-R-T Axes : 036 003 039 degrees QTc Int : 418 ms Normal sinus rhythm Minimal voltage criteria for LVH, may be normal variant Borderline ECG Confirmed by DEBORAH ROMERO, CÉSAR ([id number]), loan expeditor JULISA JEWELL ([id number] on 06/10/2018 2:36:48 PM Referred By: SIMONE Confirmed By:CÉSAR CABRERA MD
--- NOTE | 2018-06-07 12:24 | ED.VISSUMM ---
- ER Visit Summary Date of Service: 06/07/18 Chief Complaint: High blood pressure, paresthesia scalp face left side and change in vision temporal peripheral left eye History of Present Illness: The patient is a 72 F presents because of elevated blood pressure as high as 212 at home with paresthesia of the left side of her scalp and face. This started last evening. The visual change occurred last evening at 2000 last 1-2 hours. She denied any problems with speech or swallowing. She denied paresthesia, anesthesia motor weakness of her upper lower extremity. She does have chronic back pain with radicular pain. She informed me that she did have an MRI of her back. She is scheduled see a spine surgeon this upcoming week. She states her blood pressure was well controlled until she developed angioedema secondary to lisinopril. She is presently on metoprolol, propranolol and diuretic. She presently denies any ocular symptoms. She denies trouble with balance or dropping things. Past history of GERD, hypertension, neuropathy, restless leg syndrome and sleep apnea. Physical Examination: Blood pressure 2 01/20/2022 otherwise vitals unremarkable. Head is atraumatic normocephalic. Pupils are equal round reactive. Extraocular muscles are intact. TMs are pearly white with landmarks noted. Nares patent with no drainage. Posterior pharynx without erythema or exudate. Uvula is midline. There is no dysphonia or dysphasia. Trachea is midline. There is no stridor with auscultation of the neck. Unable see fundi secondary to myosis. Heart is regular without murmur, gallop or rub. S1 and S2 are normal. Lungs are clear to auscultation with good movement of air bilaterally. Abdomen soft nontender. Patient is alert and oriented ?3. Motor is 5 over 5. Sensory is intact. DTRs are symmetric with no clonus or Babinski sign. Cranial 2 through 12 are intact. Cerebellar testing is normal. Straight leg test is positive on the left. Straight leg test on the right causes central and left lower back pain without radiculopathy. Patella and ankle reflex are symmetric. DP and PT pulses are palpable. EHL is intact. Normal sensation. There is no objective findings. No visual field cut was noted on confrontation and presently patient has no ocular symptoms. Test Results: CT of the head reveals chronic involutional changes. CBC and basic metabolic panel unremarkable. Emergency Department Course and Treatment: Patient was medicated with Zofran and 8 mg of morphine. She continued to have pain and was given 4 mg of morphine. Treatment Plan: Patient had a 10% reduction of her her systolic blood pressure with 10 mg of labetalol. Will give additional dose of labetalol. The hospitalist, Dr. Palmer, was paged and informed of patient's history and physical. Disposition: Full admit PCU stepdown Impression: 1. Hypertensive urgency 2. Low back pain with sciatica left This note was generated with [employer] dictation software. It may contain incorrect words, spelling, and punctuation that were not noted in review of the chart prior to signing ED Disposition - Plan for ED Patient: Chief Complaint: Numb/Ting Referrals: Javier Mar Chi, MD [Primary Care Provider] -
[2018-06-07] MEDS: Ondansetron 4 MG/2 ML Vial IV (12:39)
[2018-06-07] MEDS: morphine 8 MG/ML Syringe IV (12:39)
[2018-06-07 12:45] LABS: Absolute Neutrophil Count 4.3 X10^3/uL (2.0-7.7); Basophil# 0.02 X10^3/uL; Basophil% 0.2 % (0-1); Eosinophil# 0.48 X10^3/uL; Eosinophils% 5.5 % (0-5); Hematocrit 42.3 % (37-47); Hemoglobin 13.5 g/dl (12.0-15.0); Lymphocyte % 37.8 % (19-41); Mean Corp Hgb Conc 31.9 g/gl (32-36); Mean Corpuscular Hgb 30.5 pg (27.0-32.0); Mean Corpuscular Volume 95.5 fL (81-99); Monocyte# 0.67 X10^3/uL; Monocyte% 7.7 % (0-10); Neutrophil # 4.26 X10^3/uL (2.7-7.7); Neutrophil % 48.7 % (47-70); Platelet Count 197 K/mm3 (150-450); RBC Distribution Width CV 14.2 % (11.6-14.6); RBC Distribution Width SD 49.6 fl (35.1-43.9); Red Blood Count 4.43 M/mm3 (4.2-5.4); White Blood Count 8.7 K/mm3 (4.4-11.0)
[2018-06-07 12:53] LABS: Anion Gap 7 (5-15); BUN 16 mg/dL (7-18); BUN/Creat Ratio 22.7 RATIO (10-20); Calcium,Total 9.7 mg/dL (8.5-10.1); Chloride 106 mmol/L (98-107); Creatinine, Serum 0.71 mg/dL (0.55-1.02); EST Glomerular Filtration Rate 86 mL/min (>60); Est Glom Filt Rate - Afr Amer 104 mL/min (>60); Glucose 98 mg/dL (74-106); Potassium 3.8 mmol/L (3.5-5.1); Sodium Level 144 mmol/L (136-145)
[2018-06-07 12:57] LABS: POSITIVE COUNT NO; POSITIVE DIFFERENTIAL NO; POSITIVE MORPHOLOGY NO
[2018-06-07] MEDS: Morphine 4 MG/ML Syringe IV (13:34)
--- NOTE | 2018-06-07 14:43 | ED.RN ---
CALLED PHARMACY FOR TRANDATE.
--- NOTE | 2018-06-07 15:29 | CT_ITS ---
STUDY: CTA NECK WITH CONTRAST REASON FOR EXAM: Female, 72 years old. CVA RADIATION DOSAGE (If Supplied By Facility): CTDIvol = ( ) mGy, DLP = ( ) mGycm TECHNIQUE: CT angiography with multi-detector data acquisition was performed from the aortic arch to the skull base following intravenous administration of 100 ml of Isovue-370 contrast. 3D reconstruction images were reconstructed from the axial data set. Post-processing of the angiographic images was performed, with multiplanar reformats and. Individualized dose optimization techniques were used for this CT. COMPARISON: None. 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 There are multilevel degenerative changes of the cervical spine AORTIC ARCH: There is a bovine origin of the great vessels arising from the aortic arch with a common origin of the brachiocephalic and left common carotid artery. Normal origin of the left subclavian artery. Normal origins of the right subclavian artery. RIGHT CAROTID ARTERIES: Normal right common carotid artery (CCA). There is mild atherosclerotic plaque formation without narrowing of the right carotid bulb. Normal origin of the right internal carotid (ICA) artery without a hemodynamically significant stenosis. There is atherosclerotic tortuous elongation of the cervical portion of the right internal carotid artery. Normal origin of the right external carotid artery (ECA). LEFT CAROTID ARTERIES: Normal left common carotid artery (CCA). Normal left common carotid bulb. There is a normal noncalcific atherosclerotic plaque formation of the origin of the left internal carotid artery with less than 25% cross sectional diameter stenosis. Normal visualized cervical portion of the left internal carotid artery. Normal origin of the left external carotid artery (ECA). VERTEBRAL ARTERIES: Normal right vertebral artery. Focal atherosclerotic calcification at the takeoff of the left vertebral artery without significant stenosis. CT/CTA Neck W/WO Contrast IMPRESSION: 1. Patent bilateral cervical carotid arteries without hemodynamically significant stenosis. 2. Patent bilateral vertebral arteries. 3. Multilevel degenerative changes of the cervical spine. 4. 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 Electronically Signed: Isma Marcos MD at 17:59 EDT , Service support ,
--- NOTE | 2018-06-07 15:29 | CT_ITS ---
STUDY: CTA OF THE BRAIN REASON FOR EXAM: Female, 72 years old. CVA. RADIATION DOSAGE (If Supplied By Facility): CTDIvol = ( 17.95 ) mGy, DLP = ( 695.68 ) mGycm TECHNIQUE: CT angiography was performed with a multi-detector CT scanner. Data acquisition was obtained from the skull base through the vertex following intravenous administration of 100 ml of Isovue-370. 3-D reformations were reconstructed from the axial data set. Post-processing of the angiographic images was performed. Individualized dose optimization techniques were used for this CT. COMPARISON: Noncontrast CT brain 1312 hours; CTA Brain March 11, 2015 FINDINGS: Normal bilateral petrous carotid arteries. There is mild calcified plaque formation of the distal right cavernous carotid artery, without a cross-sectional luminal stenosis. There is mild calcified plaque formation of the distal left cavernous carotid artery, without a cross-sectional luminal stenosis. Normal A1 segment of the anterior cerebral artery. Normal A1 segment of the anterior cerebral artery. Normal intact anterior communicating artery (ACOM). Normal bilateral A2 segments of the anterior cerebral arteries. Normal M1 and M2 segments of the middle cerebral artery, with a normal M1 bifurcation. Normal M1 and M2 segments of the middle cerebral artery, with a normal M1 bifurcation. Normal right posterior communicating artery (PCOM). Normal left posterior communicating artery (PCOM). Normal bilateral vertebral arteries. Normal basilar artery with a normal basilar bifurcation. The visualized bilateral superior cerebellar (SCA) arteries are normal. Normal P1, P2 and visualized P3 segments of the bilateral posterior cerebral arteries. There is no demonstrated aneurysm of the viejas of Segura. There is no demonstrated abnormality of the visualized brain. Incidental note of mild mucoperiosteal thickening in the left maxillary sinus. CT/CTA Head W/WO Contrast IMPRESSION: Normal viejas of Segura without a demonstrated aneurysm or hemodynamically significant stenosis. Electronically Signed: Isma Marcos MD at 17:42 EDT , Service support ,
--- NOTE | 2018-06-07 15:31 | PCM.HP.STD ---
Problem List (1) Hypertension Status: Chronic (2) Morbid obesity with BMI of 40.0-44.9, adult Status: Chronic (3) Osteoarthritis Status: Chronic (4) CHRISTIANA (obstructive sleep apnea) Status: Chronic (5) GERD (gastroesophageal reflux disease) Status: Chronic (6) History of migraine Status: Chronic History of Present Illness Date of Admission: 06/07/18 Chief Complaint: Headache, paresthesia left head and face, high blood pressure. The patient is a 72 year old F who presents to the emergency room due to severe headache, left head and facial paresthesia, left eye vision changes and elevated blood pressure. Patient states she has had severe pain for the last 3 weeks due to chronic lumbar spine disease. Recently, she has been debilitated due to pain with fall approximately 1 week ago and inability to get up. [facility] had to be called at that time however she was not transported to the emergency room. She notes difficulty getting out of bed and completing activities of daily living due to severe lower back pain which radiates to left hip down left leg. She was following with pain management, Dr. Nicholson in [place] and was told there is nothing more they could do for her. She was told to see spine surgeon. She has an upcoming appointment at [facility] with spine surgeon. She denies loss of bowel or bladder function. Patient states last night she developed sudden onset of pain on the left side of her head anteriorly with radiation to left side of her face. She notes associated paresthesia of the left side of her head and face. She describes associated left eye vision changes which resolved within a few hours. Denies unilateral weakness, extremity numbness, tingling. Denies rash of the scalp or face. Patient notes that her blood pressure has been difficult to control an outpatient basis. Blood pressure over 200 systolically. Patient was given morphine in ER with improvement in pain. She was also given IV labetalol with improvement in blood pressure. Past Medical History Past Medical History (Chronic Problems): Chronic Problems (Last Updated 04/21/18 @ 08:01 by Roseanne Berry) Osteoarthritis (Chronic) CHRISTIANA (obstructive sleep apnea) (Chronic) GERD (gastroesophageal reflux disease) (Chronic) History of migraine (Chronic) Hypertension (Chronic) Morbid obesity with BMI of 40.0-44.9, adult (Chronic) Medical History: Medical History (Last Updated 04/21/18 @ 08:01 by Roseanne Berry) Hypertension (Chronic) I10 Morbid obesity with BMI of 40.0-44.9, adult (Chronic) E66.01, Z68.41 GERD (gastroesophageal reflux disease) K21.9 Osteoarthritis M19.90 Peripheral neuropathy G62.9 Restless leg syndrome G25.81 Allergies bee pollen Allergy (Verified 06/07/18 12:05) Swelling erythromycin base [Erythromycin Base] Allergy (Verified 06/07/18 12:05) Rash lisinopril Allergy (Verified 06/07/18 12:05) Swelling latex Adverse Reaction (Verified 06/07/18 12:05) Swelling Home Medications: Ambulatory Orders Medication Instructions Recorded Aspirin [Aspirin, Baby] 81 mg PO DAILY@0800 06/07/18 Baclofen [Lioresal] 10 mg PO BID 06/07/18 Gabapentin [Neurontin] 300 mg PO BIDCM 06/07/18 Hydralazine HCl [Hydralazine HCl] 25 mg PO TID 06/07/18 Hydrochlorothiazide [Hctz] 25 mg PO BID 06/07/18 L.acidoph,Paracasei, B.lactis 1 each PO BID 06/07/18 [Probiotic] Metoprolol Tartrate 50 mg PO BID 06/07/18 Potassium Chloride [K-Dur] 10 meq PO BID 06/07/18 Propranolol HCl 60 mg PO DAILY 06/07/18 Surgical History: Surgical History (Last Updated 04/21/18 @ 08:49 by Roseanne Berry) History of partial nephrectomy Z90.5 History of tonsillectomy Z90.89 History of total abdominal hysterectomy Z90.710 History of total knee arthroplasty Z96.659 Surgical History: hysterectomy - Bilateral oophorectomy with hyster 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 Psychiatric History: Anxiety, Depression, - - Patient suffered from anxiety/depression when her and was on Paxil but no longer takes this medication. 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 Denies: Sinus Congestion, Sinus Drainage Cardiovascular: Reports: Edema - lower extremity, intermittent. Denies: Chest Pain, Palpitations Respiratory: Denies: Cough, Shortness of breath at rest, Sputum production Gastrointestinal: Denies: Abdominal Pain, Nausea, Vomiting Genitourinary: Denies: Dysuria Musculoskeletal: Reports: Back Pain. Denies: Arm Pain, Neck Pain Skin: Denies: Rash, Wounds Neurological: Reports: Numbness - Left head and face. Denies: Focal weakness, Tingling Psychiatric: Denies: Anxiety, Depression, Homicidal Ideations, Suicidal Ideations Hematologic/ Lymphatic: Denies: Easy Bruising, Easy Bleeding VTE Information - Inpt Only VTE Present on Admission: No VTE Mechan Device Prophylaxis: None VTE Pharm Prophylaxis ordered?: Yes - Physical Exam General: Alert, Oriented x3, Cooperative HEENT: Atraumatic, PERRLA, EOMI, Normocephalic Oral: Dry Mucosa, - - Coated toungue Neck: Supple, No JVD, Negative Carotid Bruits Lungs: Clear to auscultation, Diminished Cardiovascular: Regular rate, Regular Rhythm, Normal S1, Normal S2, No murmurs Abdomen: Bowel Sounds Present, Soft, Non Tender, Non-Distended, Obese Extremities: No clubbing, No cyanosis, No edema, Capillary Refill Less than 3 Seconds Skin: No rashes, No breakdown Musculoskeletal: No Tenderness to Palpation of Joints or Extremities Neurological: Cranial nerves II-XII grossly intact, Neuro grossly intact Psych/Mental Status: Normal Affect, Appropriate Vital Signs Temp Pulse Resp BP Pulse Ox 98.7 F 70 16 155/66 H 100 06/07/18 12:01 06/07/18 15:30 06/07/18 15:30 06/07/18 15:30 06/07/18 15:30 Oxygen Delivery Method Room Air Assessment/Plan All Active Problems (Last Updated 04/21/18 @ 08:01 by Roseanne Berry) Chest pain (Resolved) Headache (Resolved) Hypertensive urgency (Resolved) Hypertensive urgency, malignant (Resolved) 1. Hypertensive Emergency-history of uncontrolled hypertension. Blood pressure improved following IV labetalol in ER. Continue as needed labetalol. Increase home hydralazine regimen to 50 mg p.o. 3 times daily. Hydrochlorothiazide 25 mg daily. Continue home metoprolol regimen. Obtain renal ultrasound. PRN pain regimen, feel elevated BP may be secondary to severe back pain. 2. Headache with left head and face paresthesias-low suspicion for stroke. Suspect complex migraine. History of migraines. Obtain CTA of neck/CT of head. MRI of brain. Every 4 neuro checks. PRN pain regimen. Obtain cervical spine MRI. Check ESR. 3. Debility secondary to chronic back pain/osteoarthritis-MRI of lumbar spine 05/30/2018 showed multilevel advanced degenerative changes in the lumbar spine, resulting in moderate to severe degrees of spinal canal stenosis greatest at L2-L3, overall grossly stable compared with prior study. There is new tortuosity/clumping of the cauda equina nerve roots at L4-L5 which could relate to high-grade spinal stenosis however sequela of prior arachnoiditis is difficult to entirely exclude. Patient has upcoming appt with spine surgeon at [facility]. MRI of cervical spine in 2014 showed moderate to severe central canal and foraminal stenosis at C5-C6 and C6-C7 with multilevel degenerative changes. Case management consult for possible need for skilled placement while waiting to obtain surgical intervention. PT/OT. Recent fall at home secondary to lower back pain with radiation to left leg/left leg paresthesias. Fall precautions. 3. Chronic kidney disease stage III- stable. 4. Obstructive sleep apnea-intermittently noncompliant with CPAP. CPAP nightly. Patient instructed on importance of regimen. 5. GERD-continue PPI. DVT prophylaxis-Lovenox subcu. This patient was seen by FAISAL Kumar under the supervision of Dr. Palmer.
--- NOTE | 2018-06-07 15:38 | HP.PCM_ITS ---
Problem List (1) Hypertension Status: Chronic (2) Morbid obesity with BMI of 40.0-44.9, adult Status: Chronic (3) Osteoarthritis Status: Chronic (4) CHRISTIANA (obstructive sleep apnea) Status: Chronic (5) GERD (gastroesophageal reflux disease) Status: Chronic (6) History of migraine Status: Chronic History of Present Illness Date of Admission: 06/07/18 Chief Complaint: Headache, paresthesia left head and face, high blood pressure. The patient is a 72 year old F who presents to the emergency room due to severe headache, left head and facial paresthesia, left eye vision changes and elevated blood pressure. Patient states she has had severe pain for the last 3 weeks due to chronic lumbar spine disease. Recently, she has been debilitated due to pain with fall approximately 1 week ago and inability to get up. [facility] had to be called at that time however she was not transported to the emergency room. She notes difficulty getting out of bed and completing activities of daily living due to severe lower back pain which radiates to left hip down left leg. She was following with pain management, Dr. Nicholson in [place] and was told there is nothing more they could do for her. She was told to see spine surgeon. She has an upcoming appointment at [facility] with spine surgeon. She denies loss of bowel or bladder function. Patient states last night she developed sudden onset of pain on the left side of her head anteriorly with radiation to left side of her face. She notes associated paresthesia of the left side of her head and face. She describes associated left eye vision changes which resolved within a few hours. Denies unilateral weakness, extremity numbness, tingling. Denies rash of the scalp or face. Patient notes that her blood pressure has been difficult to control an outpatient basis. Blood pressure over 200 systolically. Patient was given morphine in ER with improvement in pain. She was also given IV labetalol with improvement in blood pressure. Past Medical History Past Medical History (Chronic Problems): Chronic Problems (Last Updated 04/21/18 @ 08:01 by Roseanne Berry) Osteoarthritis (Chronic) CHRISTIANA (obstructive sleep apnea) (Chronic) GERD (gastroesophageal reflux disease) (Chronic) History of migraine (Chronic) Hypertension (Chronic) Morbid obesity with BMI of 40.0-44.9, adult (Chronic) Medical History: Medical History (Last Updated 04/21/18 @ 08:01 by Roseanne Berry) Hypertension (Chronic) I10 Morbid obesity with BMI of 40.0-44.9, adult (Chronic) E66.01, Z68.41 GERD (gastroesophageal reflux disease) K21.9 Osteoarthritis M19.90 Peripheral neuropathy G62.9 Restless leg syndrome G25.81 Allergies bee pollen Allergy (Verified 06/07/18 12:05) Swelling erythromycin base [Erythromycin Base] Allergy (Verified 06/07/18 12:05) Rash lisinopril Allergy (Verified 06/07/18 12:05) Swelling latex Adverse Reaction (Verified 06/07/18 12:05) Swelling Home Medications: Ambulatory Orders Medication Instructions Recorded Aspirin [Aspirin, Baby] 81 mg PO DAILY@0800 06/07/18 Baclofen [Lioresal] 10 mg PO BID 06/07/18 Gabapentin [Neurontin] 300 mg PO BIDCM 06/07/18 Hydralazine HCl [Hydralazine HCl] 25 mg PO TID 06/07/18 Hydrochlorothiazide [Hctz] 25 mg PO BID 06/07/18 L.acidoph,Paracasei, B.lactis 1 each PO BID 06/07/18 [Probiotic] Metoprolol Tartrate 50 mg PO BID 06/07/18 Potassium Chloride [K-Dur] 10 meq PO BID 06/07/18 Propranolol HCl 60 mg PO DAILY 06/07/18 Surgical History: Surgical History (Last Updated 04/21/18 @ 08:49 by Roseanne Berry) History of partial nephrectomy Z90.5 History of tonsillectomy Z90.89 History of total abdominal hysterectomy Z90.710 History of total knee arthroplasty Z96.659 Surgical History: hysterectomy - Bilateral oophorectomy with hyster 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 Psychiatric History: Anxiety, Depression, - - Patient suffered from anxiety/ depression when her and was on Paxil but no longer takes this medication. 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 Denies: Sinus Congestion, Sinus Drainage Cardiovascular: Reports: Edema - lower extremity, intermittent. Denies: Chest Pain, Palpitations Respiratory: Denies: Cough, Shortness of breath at rest, Sputum production Gastrointestinal: Denies: Abdominal Pain, Nausea, Vomiting Genitourinary: Denies: Dysuria Musculoskeletal: Reports: Back Pain. Denies: Arm Pain, Neck Pain Skin: Denies: Rash, Wounds Neurological: Reports: Numbness - Left head and face. Denies: Focal weakness, Tingling Psychiatric: Denies: Anxiety, Depression, Homicidal Ideations, Suicidal Ideations Hematologic/ Lymphatic: Denies: Easy Bruising, Easy Bleeding VTE Information - Inpt Only VTE Present on Admission: No VTE Mechan Device Prophylaxis: None VTE Pharm Prophylaxis ordered?: Yes - Physical Exam General: Alert, Oriented x3, Cooperative HEENT: Atraumatic, PERRLA, EOMI, Normocephalic Oral: Dry Mucosa, - - Coated toungue Neck: Supple, No JVD, Negative Carotid Bruits Lungs: Clear to auscultation, Diminished Cardiovascular: Regular rate, Regular Rhythm, Normal S1, Normal S2, No murmurs Abdomen: Bowel Sounds Present, Soft, Non Tender, Non-Distended, Obese Extremities: No clubbing, No cyanosis, No edema, Capillary Refill Less than 3 Seconds Skin: No rashes, No breakdown Musculoskeletal: No Tenderness to Palpation of Joints or Extremities Neurological: Cranial nerves II-XII grossly intact, Neuro grossly intact Psych/Mental Status: Normal Affect, Appropriate Vital Signs Temp Pulse Resp BP Pulse Ox 98.7 F 70 16 155/66 H 100 06/07/18 12:01 06/07/18 15:30 06/07/18 15:30 06/07/18 15:30 06/07/18 15:30 Oxygen Delivery Method Room Air Assessment/Plan All Active Problems (Last Updated 04/21/18 @ 08:01 by Roseanne Berry) Chest pain (Resolved) Headache (Resolved) Hypertensive urgency (Resolved) Hypertensive urgency, malignant (Resolved) 1. Hypertensive Emergency-history of uncontrolled hypertension. Blood pressure improved following IV labetalol in ER. Continue as needed labetalol. Increase home hydralazine regimen to 50 mg p.o. 3 times daily. Hydrochlorothiazide 25 mg daily. Continue home metoprolol regimen. Obtain renal ultrasound. PRN pain regimen, feel elevated BP may be secondary to severe back pain. 2. Headache with left head and face paresthesias-low suspicion for stroke. Suspect complex migraine. History of migraines. Obtain CTA of neck/CT of head. MRI of brain. Every 4 neuro checks. PRN pain regimen. Obtain cervical spine MRI. Check ESR. 3. Debility secondary to chronic back pain/osteoarthritis-MRI of lumbar spine showed multilevel advanced degenerative changes in the lumbar spine, resulting in moderate to severe degrees of spinal canal stenosis greatest at L2- L3, overall grossly stable compared with prior study. There is new tortuosity/ clumping of the cauda equina nerve roots at L4-L5 which could relate to high- grade spinal stenosis however sequela of prior arachnoiditis is difficult to entirely exclude. Patient has upcoming appt with spine surgeon at [facility]. MRI of cervical spine in 2014 showed moderate to severe central canal and foraminal stenosis at C5-C6 and C6-C7 with multilevel degenerative changes. Case management consult for possible need for skilled placement while waiting to obtain surgical intervention. PT/OT. Recent fall at home secondary to lower back pain with radiation to left leg/left leg paresthesias. Fall precautions. 3. Chronic kidney disease stage III- stable. 4. Obstructive sleep apnea-intermittently noncompliant with CPAP. CPAP nightly. Patient instructed on importance of regimen. 5. GERD-continue PPI. DVT prophylaxis-Lovenox subcu. This patient was seen by FAISAL Kumar under the supervision of Dr. Palmer.
--- NOTE | 2018-06-07 16:12 | RDU_ITS ---
Reason For Study: HTN Right Renal Artery Left Renal Artery Right renal artery ostium 94.9/30.1 Left renal artery ostium 90.3/21.0 RSV/EDV. PSV/EDV. Right Renal Parenchyma Left renal artery proximal PSV/EDV Upper Pole Medula 23.2/7.03 74.8/20.1 . PSV/EDV. Left Renal Parenchyma Right upper pole medulla EDR .3 . Left upper pole medulla 19.6/7.75 Right upper pole medulla R.I. .7 . PSV/EDV . Upper Cceilio Cortx 19.6/4.89 PSV/EDV. Left upper pole medulla EDR .4 . Right upper pole cortex EDR .25 . Left upper pole medulla R.I. .6 . Right upper pole cortex R.I. .75 . UP Cortex 23.3/9.58 PSV/EDV. Right lower Pole medulla 25.1/6.42 Left upper pole cortex EDR .41 . PSV/EDV . Left upper pole cortex R.I. .59 . Right lower pole medulla EDR .26 . Left lower Pole medulla 40.6/11.4 Right lower pole medulla R.I. .74 . PSV/EDV . Lower Pole Cortex 25.4/6.11 Left lower pole medulla EDR .28 . PSV/EDV. Left lower pole medulla R.I. .72 . Right lower pole cortex EDR .24 . Lower Pole Cortx 23.7/8.66 PSV/EDV. Right lower pole cortex R.I. .76 . Left lower pole cortex EDR .37 . Right Renal Hilar Left lower pole cortex R.I. .63 . Right hilar acceleration time 66 Left Renal Hilar m/sec. Left hilar acceleration time 44 Right Hilar avg 53.4/12.8 PSV/EDV. m/sec. Right Renal Dimensions LT Hilar avg 28.7/9.12 PSV/EDV . Right kidney size 12.7 cm . Left Renal Dimensions Right cortical dimension 1.52 cm . Left kidney size 10.7 cm . Left cortical dimension 1.46 cm . Pt has hx of partial left side nephrectomy. Aorta Proximal abdominal aorta 1.72 x 1.76 cm . Proximal abdominal aorta peak systolic velocity is 40.6 cm/sec . Procedures Difficult study due to pt body habitus. Pt was also allowed to eat prior to exam. Pt is unable to lay on her sides due to back issues as well. Limited study. Interpretation Summary Normal aortic diameter and flow <60% stenosis bilateral renal arteries. Maintained right renal length 12.7cm Left renal length 10.7cm. Reported history of partial left nephrectomy. Normal renal resistivity indices suggesting stable renal parenchyma Findings are similar to 11/09/15. Ordering Physician: Heaven Palmer Performed By: Tuan Borges RVT
[2018-06-07 16:18] LABS: Erythrocyte Sedimentation Rate 17 mm/hr (0-30)
[2018-06-07 16:45] LABS: Absolute Lymphocyte Count 3.22 X10^3/ul (0.83-4.51); Absolute Neutrophil Count 4.6 X10^3/uL (2.0-7.7); Basophil# 0.02 X10^3/uL; Basophil% 0.2 % (0-1); Eosinophil# 0.43 X10^3/uL; Eosinophils% 4.8 % (0-5); Hematocrit 43.3 % (37-47); Hemoglobin 13.6 g/dl (12.0-15.0); Lymphocyte # 3.22 X10^3/ul (4.0); Lymphocyte % 36.1 % (19-41); Mean Corp Hgb Conc 31.4 g/gl (32-36); Mean Corpuscular Hgb 30.2 pg (27.0-32.0); Mean Platelet Vol. 9.9 fl (6.2-12.0); Monocyte# 0.69 X10^3/uL; Monocyte% 7.7 % (0-10); Neutrophil # 4.55 X10^3/uL (2.7-7.7); Neutrophil % 51.1 % (47-70); Platelet Count 200 K/mm3 (150-450); RBC Distribution Width CV 14.4 % (11.6-14.6); RBC Distribution Width SD 50.5 fl (35.1-43.9); Red Blood Count 4.51 M/mm3 (4.2-5.4); White Blood Count 8.9 K/mm3 (4.4-11.0)
[2018-06-07] MEDS: oxyCODONE 5 MG Tablet PO (16:47)
[2018-06-07] MEDS: HYDROmorphone 0.5 MG/0.5 ML SYRINGE IV (16:47)
[2018-06-07 16:49] LABS: POSITIVE COUNT NO; POSITIVE DIFFERENTIAL NO; POSITIVE MORPHOLOGY NO
[2018-06-07] MEDS: hydrALAZINE 50 MG Tablet PO ×2 (16:49→21:03)
[2018-06-07 16:50] LABS: Anion Gap 7 (5-15); BUN 14 mg/dL (7-18); BUN/Creat Ratio 17.9 RATIO (10-20); Calcium,Total 9.2 mg/dL (8.5-10.1); Chloride 105 mmol/L (98-107); Creatinine, Serum 0.78 mg/dL (0.55-1.02); EST Glomerular Filtration Rate 77 mL/min (>60); Est Glom Filt Rate - Afr Amer 93 mL/min (>60); Estimated Creatinine Clearance 40.83 ml/min; Glucose 104 mg/dL (74-106); Potassium 3.7 mmol/L (3.5-5.1); Sodium Level 141 mmol/L (136-145)
[2018-06-07] MEDS: Gabapentin 400 MG Capsule PO (16:56)
[2018-06-07 16:58] LABS: Magnesium 1.8 mg/dL (1.6-2.6); Thyroid Stim Hormone (TSH) 6.62 uIU/mL (0.358-3.74)
[2018-06-07 17:32] LABS: T4 Free Direct 1.35 ng/dL (0.76-1.46)
[2018-06-07] MEDS: Famotidine 20 MG Tablet PO (21:03)
[2018-06-07] MEDS: Baclofen 10 MG Tablet PO (21:03)
[2018-06-07] MEDS: Metoprolol Tartrate 50 MG Tablet PO (21:03)
[2018-06-07] MEDS: hydroCHLOROthiazide 25 MG Tablet PO (21:10)
[2018-06-08] VITALS (17 sets, daily range): BP systolic 112–169; BP diastolic 47–79; PULSE 59–77; RESP 14–18; TEMP 35.8–36.9; O2SAT 92–98; BMI 46.2
[2018-06-08] MEDS: Acetaminophen 325 MG Tablet 650 MG PO ×2 (02:14→12:10)
[2018-06-08] MEDS: hydrALAZINE 50 MG Tablet PO ×3 (05:14→21:31)
[2018-06-08] MEDS: Baclofen 10 MG Tablet PO ×3 (05:14→21:31)
[2018-06-08 07:01] LABS: Cholesterol 172 mg/dL (200); High Density Lipoprotein 39 mg/dL; Triglycerides 134 mg/dL; Very Low Density Lipoprotein 27 mg/dL (5-40)
--- NOTE | 2018-06-08 07:33 | MRI_ITS ---
STUDY: MRI BRAIN WITHOUT CONTRAST REASON FOR EXAM: Female, 72 years old. Numbness and tingling on the left TECHNIQUE: Standardized multiplanar fat and water weighted pulse sequences were obtained. COMPARISON: CT of the brain on June 07, 2018 FINDINGS: Mild atrophy and moderate periventricular white matter ischemic changes without mass effect or restricted diffusion.. Normal bilateral basal ganglia. Normal thalami. There is no extra-axial fluid accumulation. Normal flow voids within the major intracranial circulation suggesting patency by spin echo criteria. Normal sella turcica, pituitary gland, infundibular stalk, optic chiasm and hypothalamus. Normal tectal plate and pineal gland. Normal midbrain, syl and medulla. Normal cerebellum. Normal basal cisterns. Normal bilateral temporal bones. Normal bilateral internal auditory canals. No demonstrated orbital abnormality, within the constraints of a routine brain study. Mild mucosal thickening in left maxillary sinus Normal calvarium and skull base. Normal visualized soft tissue structures. Normal visualized upper cervical spine. MRI/Brain without Contrast IMPRESSION: Atrophy and moderate periventricular white matter ischemic changes without evidence for acute infarct Electronically Signed: Kavin Murphy MD at 18:37 EDT , Service support ,
--- NOTE | 2018-06-08 07:33 | MRI_ITS ---
STUDY: MRI CERVICAL SPINE WITHOUT CONTRAST REASON FOR EXAM: Female, 72 years old. Enhancement and headaches with numbness and tingling on left side TECHNIQUE: Standardized fat and water weighted pulse sequences were obtained in the sagittal and axial planes. COMPARISON: None FINDINGS: Normal foramen magnum and brainstem-cervical cord junction. Normal craniovertebral junction. Normal anterior atlantoaxial articulation. Normal odontoid process. Normal cervical lordosis. Normal vertebral bodies and posterior osseous elements. C2-3: Normal endplates. Normal disc height, signal and morphology. Normal central canal and intervertebral neural foramina. C3-4: Normal endplates. Normal disc height, signal and tiny central disc protrusion.. Normal central canal and intervertebral neural foramina. C4-5: Minor endplate spurring.. Normal disc height, signal and morphology. Normal central canal and intervertebral neural foramina. C5-6: Narrowed disc space and endplate spurring. Moderate sized right paracentral/posterolateral disc/osteophyte protrusion mildly narrowing the spinal canal and compressing the cord. Severe right neuroforaminal stenosis secondary to bony hypertrophy and moderate to severe narrowing on the left There also appears to be low signal intensity within the anterior epidural space spanning C5-6 to C6-7 which may represent ossification of the posterior longitudinal ligament C6-7: Narrowed disc space and endplate spurring. Moderate size broad-based central disc protrusion narrowing the spinal canal mildly impinging upon the cord. Severe bilateral neuroforaminal stenosis secondary to bony hypertrophy.. C7-T1: Normal endplates. Normal disc height, signal and morphology. Normal central canal and intervertebral neural foramina. Normal cervical cord. Normal visualized soft tissue structures. MRI/Spine Cervical (Routine) IMPRESSION: Moderate spondylosis.. Spinal stenosis at C5-6 and C6-7 secondary to disc disease and bony hypertrophy with findings as above Electronically Signed: Kavin Murphy MD at 18:42 EDT , Service support ,
[2018-06-08] MEDS: oxyCODONE 5 MG Tablet PO ×2 (07:50→12:10)
[2018-06-08] MEDS: Gabapentin 400 MG Capsule PO ×3 (07:50→17:55)
[2018-06-08] MEDS: Aspirin 81 MG TAB.CHEW PO (07:50)
[2018-06-08] MEDS: Metoprolol Tartrate 50 MG Tablet PO ×2 (09:17→21:31)
[2018-06-08] MEDS: Atorvastatin Calcium 80 MG Tablet PO (09:17)
[2018-06-08] MEDS: Senna/Docusate Sodium 1 Tablet 2 TABLET PO (09:17)
[2018-06-08] MEDS: Famotidine 20 MG Tablet PO ×2 (09:17→21:31)
[2018-06-08] MEDS: hydroCHLOROthiazide 25 MG Tablet PO (09:18)
[2018-06-08] MEDS: Enoxaparin 40 MG/0.4 ML Syringe SC (09:18)
--- NOTE | 2018-06-08 10:03 | CON.PCM_ITS ---
Reason for Consult Date of Consultation: 06/08/18 Reason for Consultation: FACIAL NUMBNESS ON LEFT ASSOCIATED WITH HYPERTENSION History of Present Illness: The patient is a 72 year old F with long history of migraine and back pain, apparently unsuccessful pain management treatement in [place], scheduled to see spine surgeon at [facility]. reports facial numbness has resolved, feels back to baseline however her back pain is a severe ongoing issue. Per admission H&P: The patient is a 72 y/o F w/ PMHx: Migraines, Hypertension longstanding difficult to control, on multiple agents w/ prior 2015 unremarkable Renal Doppler US, Morbid Obesity, CHRISTIANA, RLS, OA, GERD, self- reported non-compliance with DASH diet (eats out frequently), Ongoing debility and Radicular Pain secondary to Chronic Lumbar Canal Stenosis and DDD awaiting evaluation per [facility] surgeon for consideration of intervention as she has exhausted all interventions per pain management who presents to the [facility] ED on 06/07/18 with history of onset evening prior left-sided throbbing frontal headache with onset additionally numbness and tingling in this region extending to the lateral face ending at mid cheek with transient left lateral vision changes which resolved with improvement additionally of throbbing headache but ongoing although mildly decreased sensation changes to the region prompting eventual ED presentation the following day. The patient denies any neurological symptoms in the extremities. She notes that approximately 1 week prior secondary to the worsening debility of her lumbar back pain and radiculopathy to the extremities that she fell. Emergency room workup included T 97.5, blood pressure 205/98 with transient improvement with IV regimen to 155/66, heart rate 18, 93% on room air with again noted very labile blood pressure at home ranging from systolic 160-220, unremarkable CBC, workable BMP, CT head with chronic involutional changes with no acute findings. ED the patient was administered Zofran, 2 rounds of morphine in addition to labetalol IV. Past Medical History Past Medical History (Chronic Problems): Chronic Problems (Last Updated 04/21/18 @ 08:01 by Roseanne Berry) Osteoarthritis (Chronic) CHRISTIANA (obstructive sleep apnea) (Chronic) GERD (gastroesophageal reflux disease) (Chronic) History of migraine (Chronic) Hypertension (Chronic) Morbid obesity with BMI of 40.0-44.9, adult (Chronic) Medical History: Medical History (Last Updated 04/21/18 @ 08:01 by Roseanne Berry) Hypertension (Chronic) I10 Morbid obesity with BMI of 40.0-44.9, adult (Chronic) E66.01, Z68.41 GERD (gastroesophageal reflux disease) K21.9 Osteoarthritis M19.90 Peripheral neuropathy G62.9 Restless leg syndrome G25.81 Allergies bee pollen Allergy (Verified 06/07/18 12:05) Swelling erythromycin base [Erythromycin Base] Allergy (Verified 06/07/18 12:05) Rash lisinopril Allergy (Verified 06/07/18 12:05) Swelling latex Adverse Reaction (Verified 06/07/18 12:05) Swelling Home Medications: Ambulatory Orders Medication Instructions Recorded Aspirin [Aspirin, Baby] 81 mg PO DAILY@0800 06/07/18 Baclofen [Lioresal] 10 mg PO BID 06/07/18 Gabapentin [Neurontin] 300 mg PO BIDCM 06/07/18 Hydralazine HCl [Hydralazine HCl] 25 mg PO TID 06/07/18 Hydrochlorothiazide [Hctz] 25 mg PO BID 06/07/18 L.acidoph,Paracasei, B.lactis 1 each PO BID 06/07/18 [Probiotic] Metoprolol Tartrate 50 mg PO BID 06/07/18 Potassium Chloride [K-Dur] 10 meq PO BID 06/07/18 Propranolol HCl 60 mg PO DAILY 06/07/18 Surgical History: Surgical History (Last Updated 04/21/18 @ 08:49 by Roseanne Berry) History of partial nephrectomy Z90.5 History of tonsillectomy Z90.89 History of total abdominal hysterectomy Z90.710 History of total knee arthroplasty Z96.659 Surgical History: hysterectomy - Bilateral oophorectomy with hyster 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 Psychiatric History: Anxiety, Depression, - - Patient suffered from anxiety/ depression when her and was on Paxil but no longer takes this medication. DIRECTOR FAMILY History: No pertinent DIRECTOR FAMILY history, - - Benign ovarian mass Lives: Alone Smoking Status: Never smoker Alcohol: None Drugs: None - *Family History Paternal Family History: Family History (Last Reviewed 06/07/18 @ 15:46 by FAISAL Kumar) Mother Hypertension History Items: No pertinent history Maternal Family History: Family History (Last Reviewed 06/07/18 @ 15:46 by FAISAL Kumar) Mother Hypertension History Items: Hypertension Review of Systems Constitutional: Denies: Chills, Fever, Weight Change HEENT: Denies: Head Aches, Sinus Congestion, Sinus Drainage Cardiovascular: Denies: Chest Pain, Palpitations Respiratory: Denies: Cough, Shortness of breath at rest, Sputum production Gastrointestinal: Denies: Abdominal Pain, Nausea, Vomiting Genitourinary: Denies: Dysuria Musculoskeletal: Reports: Back Pain. Denies: Joint Pain, Joint Tenderness Skin: Denies: Rash, Wounds Neurological: Denies: Numbness, Tingling, Focal weakness Psychiatric: Denies: Anxiety, Depression, Homicidal Ideations, Suicidal Ideations Hematologic/ Lymphatic: Denies: Easy Bruising, Easy Bleeding - Physical Exam Vital Signs Temp Pulse Resp BP Pulse Ox 36.5 C L 62 14 147/71 H 98 06/08/18 07:38 06/08/18 09:17 06/08/18 07:38 06/08/18 07:38 06/08/18 07:38 Oxygen Delivery Method Room Air Weight: 118.388 kg Body Mass Index (BMI) 46.2 Intake and Output for Last 24 Hours 06/06/18 06/07/18 06/08/18 23:59 23:59 23:59 Intake Total 240 / 240 300 / 300 Balance 240 / 240 300 / 300 Laboratory Tests Past 24 Hrs 06/07/18 06/07/18 06/07/18 16:25 16:25 16:25 WBC 8.9 RBC 4.51 Hgb 13.6 Hct 43.3 MCV 96.0 MCH 30.2 MCHC 31.4 L RDW 14.4 RDW Differential 50.5 H Plt Count 200 MPV 9.9 Immature Gran % (Auto) 0.100 Neut % (Auto) 51.1 Lymph % (Auto) 36.1 [place] % (Auto) 7.7 Eos % (Auto) 4.8 Baso % (Auto) 0.2 Absolute Neuts (auto) 4.6 Absolute Lymphs (auto) 3.22 Total Counted Not Reportable Sodium 141 Potassium 3.7 Chloride 105 Carbon Dioxide 29.0 Anion Gap 7 BUN 14 Creatinine 0.78 Estim Creat Clear Calc 40.83 Est GFR (MDRD) Af Amer 93 Est GFR (MDRD) Non-Af 77 BUN/Creatinine Ratio 17.9 Glucose 104 Calcium 9.2 Magnesium 1.8 Triglycerides Cholesterol LDL Cholesterol VLDL Cholesterol HDL Cholesterol TSH 6.62 H Free T4 06/07/18 06/08/18 16:25 06:18 WBC RBC Hgb Hct MCV MCH MCHC RDW RDW Differential Plt Count MPV Immature Gran % (Auto) Neut % (Auto) Lymph % (Auto) [place] % (Auto) Eos % (Auto) Baso % (Auto) Absolute Neuts (auto) Absolute Lymphs (auto) Total Counted Sodium Potassium Chloride Carbon Dioxide Anion Gap BUN Creatinine Estim Creat Clear Calc Est GFR (MDRD) Af Amer Est GFR (MDRD) Non-Af BUN/Creatinine Ratio Glucose Calcium Magnesium Triglycerides 134 Cholesterol 172 LDL Cholesterol 106 VLDL Cholesterol 27 HDL Cholesterol 39 L TSH Free T4 1.35 Current Home Med List Medication Instructions Recorded Confirmed Type Aspirin [Aspirin, Baby] 81 mg PO DAILY@0800 06/07/18 06/07/18 History Baclofen [Lioresal] 10 mg PO BID 06/07/18 06/07/18 History Gabapentin [Neurontin] 300 mg PO BIDCM 06/07/18 06/07/18 History Hydralazine HCl [Hydralazine HCl] 25 mg PO TID 06/07/18 06/07/18 History Hydrochlorothiazide [Hctz] 25 mg PO BID 06/07/18 06/07/18 History L.acidoph,Paracasei, B.lactis 1 each PO BID 06/07/18 06/07/18 History [Probiotic] Metoprolol Tartrate 50 mg PO BID 06/07/18 06/07/18 History Potassium Chloride [K-Dur] 10 meq PO BID 06/07/18 06/07/18 History Propranolol HCl 60 mg PO DAILY 06/07/18 06/07/18 History Current Medications Generic Name Dose Route Start Last Admin Trade Name Freq PRN Reason Stop Dose Admin Acetaminophen 650 mg 06/07/18 16:12 06/08/18 02:14 Tylenol PO 650 mg Q4H PRN PRN Administration Headache/Temp>99F Acetaminophen 650 mg 06/07/18 16:12 Tylenol RECTAL Q4H PRN PRN Headache/Temp>99F Acetaminophen 650 mg 06/07/18 16:12 Tylenol Liquid NG Q4H PRN PRN Headache/Temp>99F Al Hydroxide/Mg Hydroxide 30 ml 06/07/18 16:12 Mylanta Ii PO Q6H PRN PRN Gastric burning Aspirin 81 mg 06/08/18 08:00 06/08/18 07:50 Aspirin, Baby PO 81 mg DAILY@0800 [facility] Administration Atorvastatin Calcium 80 mg 06/08/18 10:00 06/08/18 09:17 Lipitor PO 80 mg DAILY [facility] Administration Baclofen 10 mg 06/07/18 22:00 06/08/18 05:14 Lioresal PO 10 mg TID [facility] Administration Enoxaparin Sodium 40 mg 06/08/18 10:00 06/08/18 09:18 Lovenox SC 40 mg DAILY@1000 [facility] Administration Famotidine 20 mg 06/07/18 22:00 06/08/18 09:17 Pepcid PO 20 mg BID [facility] Administration Gabapentin 400 mg 06/07/18 17:00 06/08/18 07:50 [facility] Hydralazine HCl 50 mg 06/07/18 22:00 06/08/18 05:14 Apresoline PO 50 mg TID [facility] Administration Hydrochlorothiazide 25 mg 06/07/18 22:00 06/08/18 09:18 Hctz PO 25 mg DAILY [facility] Administration Hydromorphone HCl 0.5 mg 06/07/18 16:12 06/08/18 10:45 Dilaudid Inj IV 0.5 mg Q3H PRN PRN Administration SEVERE PAIN (6-10/10) Labetalol HCl 10 mg 06/07/18 16:12 Trandate IV 06/08/18 16:13 Q4H PRN PRN SBP > 160, hold for HR < 60 Magnesium Hydroxide 30 ml 06/07/18 16:12 Milk Of Magnesia PO DAILY PRN Constipation Metoprolol Tartrate 50 mg 06/07/18 22:00 06/08/18 09:17 Lopressor (Beta En[place]) PO 50 mg BID [facility] Administration Ondansetron HCl 4 mg 06/07/18 16:12 Zofran IV Q8H PRN PRN NAUSEA Oxycodone HCl 5 - 10 mg 06/07/18 16:12 06/08/18 07:50 Oxyir PO 10 mg Q4H PRN PRN Administration SEVERE PAIN (6-10/10) Potassium Chloride 10 meq 06/07/18 17:00 06/08/18 07:50 K-Dur PO 10 meq BIDCM RYLIE Administration Promethazine HCl 12.5 mg 06/07/18 16:12 Phenergan IV Q6H PRN PRN NAUSEA/VOMITING Psyllium Hydrophilic Mucilloid 1 packet 06/08/18 10:00 06/08/18 09:22 Metamucil PO Not Given DAILY RYLIE Senna/Docusate Sodium 2 tablet 06/08/18 10:00 06/08/18 09:17 Senokot-S, Kari-Colace PO 2 tablet DAILY RYLIE Administration Sodium Chloride 5 - 30 ml 06/08/18 10:54 06/08/18 10:45 IV 10 ml UD PRN Administration SALINE FLUSH Assessment/Plan All Active Problems (Last Updated 04/21/18 @ 08:01 by Roseanne Berry) Chest pain (Resolved) Headache (Resolved) Hypertensive urgency (Resolved) Hypertensive urgency, malignant (Resolved) neurologic symptoms, resolved await mri increase gabapentin 400mg prn offer consultaion to dr strickland if pt aggrees
[2018-06-08] MEDS: 0.9% NaCl Peripheral Flush Adult/Peds IV (10:45)
[2018-06-08] MEDS: HYDROmorphone 0.5 MG/0.5 ML SYRINGE IV ×2 (10:45→14:49)
--- NOTE | 2018-06-08 12:59 | CASEMGMT ---
Addendum entered by Nancy Humphrey 06/08/18 14:10: Pt is still out of the dept for testing. Will attempt again tomorrow. Shlomo MAYA CM Original Note: This RN CM to room to complete CM assessment and pt is out of the dept for testing at this time. Will attempt again later. Shlomo MAYA CM
--- NOTE | 2018-06-08 13:37 | PCM.PROGNOTE ---
<Elida Juarez - Last Filed: 06/08/18 14:36> Subjective: Patient seen and examined. No acute events overnight. Patient continues to complain of intractable lumbar back pain. Improved with pain regimen. Tolerated MRI. Complains of right lower lip swelling. Patient states she had similar symptoms with anaphylaxis secondary to lisinopril. Denies tongue/throat swelling. - Physical Exam General: Alert, Oriented x3, Cooperative, No apparent distress HEENT: Atraumatic, PERRLA, EOMI, Normocephalic Neck: Supple, No JVD, Negative Carotid Bruits Lungs: Clear to auscultation, Normal air movement Cardiovascular: Regular rate, Regular Rhythm, Normal S1, Normal S2, No murmurs Abdomen: Bowel Sounds Present, Soft, Non Tender, Non-Distended, Obese Extremities: No clubbing, No cyanosis, No edema, Capillary Refill Less than 3 Seconds Skin: No rashes, No breakdown Musculoskeletal: No Tenderness to Palpation of Joints or Extremities Neurological: Cranial nerves II-XII grossly intact, Neuro grossly intact Psych/Mental Status: Normal Affect, Appropriate Vital Signs Temp Pulse Resp BP Pulse Ox 97.8 F 72 16 169/79 H 96 06/08/18 11:38 06/08/18 11:38 06/08/18 11:38 06/08/18 11:38 06/08/18 11:38 Oxygen Delivery Method Room Air Weight: 261 lb Body Mass Index (BMI) 46.2 Intake and Output for Last 24 Hours 06/06/18 06/07/18 06/08/18 23:59 23:59 23:59 Intake Total 240 / 240 780 / 780 Balance 240 / 240 780 / 780 Laboratory Tests Past 24 Hrs 06/07/18 06/07/18 06/07/18 16:25 16:25 16:25 WBC 8.9 RBC 4.51 Hgb 13.6 Hct 43.3 MCV 96.0 MCH 30.2 MCHC 31.4 L RDW 14.4 RDW Differential 50.5 H Plt Count 200 MPV 9.9 Immature Gran % (Auto) 0.100 Neut % (Auto) 51.1 Lymph % (Auto) 36.1 [place] % (Auto) 7.7 Eos % (Auto) 4.8 Baso % (Auto) 0.2 Absolute Neuts (auto) 4.6 Absolute Lymphs (auto) 3.22 Total Counted Not Reportable Sodium 141 Potassium 3.7 Chloride 105 Carbon Dioxide 29.0 Anion Gap 7 BUN 14 Creatinine 0.78 Estim Creat Clear Calc 40.83 Est GFR (MDRD) Af Amer 93 Est GFR (MDRD) Non-Af 77 BUN/Creatinine Ratio 17.9 Glucose 104 Calcium 9.2 Magnesium 1.8 Triglycerides Cholesterol LDL Cholesterol VLDL Cholesterol HDL Cholesterol TSH 6.62 H Free T4 06/07/18 06/08/18 16:25 06:18 WBC RBC Hgb Hct MCV MCH MCHC RDW RDW Differential Plt Count MPV Immature Gran % (Auto) Neut % (Auto) Lymph % (Auto) [place] % (Auto) Eos % (Auto) Baso % (Auto) Absolute Neuts (auto) Absolute Lymphs (auto) Total Counted Sodium Potassium Chloride Carbon Dioxide Anion Gap BUN Creatinine Estim Creat Clear Calc Est GFR (MDRD) Af Amer Est GFR (MDRD) Non-Af BUN/Creatinine Ratio Glucose Calcium Magnesium Triglycerides 134 Cholesterol 172 LDL Cholesterol 106 VLDL Cholesterol 27 HDL Cholesterol 39 L TSH Free T4 1.35 Medical Necessity - Tobacco Use Smoking Status: Never smoker Assessment/Plan All Active Problems (Last Updated 04/21/18 @ 08:01 by Roseanne Berry) Chest pain (Resolved) Headache (Resolved) Hypertensive urgency (Resolved) Hypertensive urgency, malignant (Resolved) 1. Hypertensive Emergency-history of uncontrolled hypertension. Increase home hydralazine regimen to 50 mg p.o. 3 times daily. Hydrochlorothiazide 25 mg daily. Continue home metoprolol regimen. Obtain renal ultrasound. PRN pain regimen, feel elevated BP may be secondary to severe back pain. Continue as needed labetalol. BP improved. 2. Headache with left head and face paresthesias-low suspicion for stroke. Suspect complex migraine. History of migraines. Brain CT showed no acute intracranial abnormality. CT of head unremarkable. Neck CTA showed patent bilateral carotid arteries. Brain MRI pending. Neurology following. 3. Debility secondary to intractable lumbar chronic back pain/osteoarthritis-MRI of lumbar spine 05/30/2018 showed multilevel advanced degenerative changes in the lumbar spine, resulting in moderate to severe degrees of spinal canal stenosis greatest at L2-L3, overall grossly stable compared with prior study. There is new tortuosity/clumping of the cauda equina nerve roots at L4-L5 which could relate to high-grade spinal stenosis however sequela of prior arachnoiditis is difficult to entirely exclude. Patient has upcoming appt with spine surgeon at [facility]. MRI of cervical spine in 2014 showed moderate to severe central canal and foraminal stenosis at C5-C6 and C6-C7 with multilevel degenerative changes. Case management consult for possible need for skilled placement while waiting to obtain surgical intervention. PT/OT. Recent fall at home secondary to lower back pain with radiation to left leg/left leg paresthesias. Fall precautions. Consult Dr. Morley. Home gabapentin regimen increased. MRI of cervical spine pending. 3. Chronic kidney disease stage III- stable. 4. Obstructive sleep apnea-intermittently noncompliant with CPAP. CPAP nightly. Patient instructed on importance of regimen. 5. GERD-continue PPI. DVT prophylaxis-Lovenox subcu. This patient was seen by Elida Juarez NP-[place] under the supervision of Dr. Tapia. <Andrade Tapia - Last Filed: 06/08/18 18:18> Subjective: still with headache, but no more left facial parethesia. States that she does have some incontinence but it is due to the fact that she is not able to get to the bathroom in time. Patient is otherwise able to control her bladder. No bowel incontinence. - Physical Exam General: Alert, No apparent distress HEENT: Atraumatic, Normocephalic Oral: Moist Mucosa, No Gingival or Mucosal Lesions/ Ulcerations Neck: No Nodes, Thyroid Normal Size and Texture Lungs: Clear to auscultation, Normal air movement, No rhonchi, No wheeze Cardiovascular: Regular rate, Regular Rhythm, Normal S1, Normal S2 Abdomen: Bowel Sounds Present, Soft, Non Tender, Non-Distended, No Hepato-splenomegaly Extremities: No edema, Capillary Refill Less than 3 Seconds Psych/Mental Status: Normal Affect, Appropriate Vital Signs Temp Pulse Resp BP Pulse Ox 36.6 C 74 16 153/62 H 98 06/08/18 18:00 06/08/18 18:00 06/08/18 18:00 06/08/18 18:00 06/08/18 18:00 Oxygen Delivery Method Room Air Weight: 118.4 kg Body Mass Index (BMI) 46.2 Intake and Output for Last 24 Hours 06/06/18 06/07/18 06/08/18 23:59 23:59 23:59 Intake Total 240 / 240 1020 / 1020 Balance 240 / 240 1020 / 1020 Laboratory Tests Past 24 Hrs 06/08/18 06:18 Triglycerides 134 Cholesterol 172 LDL Cholesterol 106 VLDL Cholesterol 27 HDL Cholesterol 39 L Assessment/Plan Patient seen and examined independently. Data reviewed. I agree with the above note by the nurse practitioner. 1. Migraine Ongoing. Unclear etiology. Could be related with uncontrolled hypertension versus analgesic rebound versus primary migraine variant Given the paresthesias, patient has undergone an MRI of her brain and neck Further recommendations based on final MRI reports 2. Hypertensive emergency Present on arrival Blood pressure overall better Continue with hydralazine 50 mg 3 times daily, metoprolol 50 mg twice daily, HCTZ 25 mg daily Patient has allergic reaction to lisinopril and adverse reaction to amlodipine If blood pressure continues to remain elevated, could consider the addition of clonidine 3.Back pain Also has a radicular component Patient scheduled to follow-up with a surgeon at [facility] on the Continue with pain control did discuss the possibility of analgesic rebound is positive for headaches Case discussed with the patient's family at bedside Code Visit Inpatient E&M: 82107 Subs Hosp L3
[2018-06-08] MEDS: DiphenhydrAMINE 25 MG Capsule 50 MG PO (14:53)
[2018-06-09] VITALS (16 sets, daily range): BP systolic 115–149; BP diastolic 34–76; PULSE 62–82; RESP 16–20; TEMP 36.2–37.3; O2SAT 95–97; BMI 46.2
[2018-06-09] MEDS: oxyCODONE 5 MG Tablet PO ×3 (06:08→21:35)
[2018-06-09] MEDS: Baclofen 10 MG Tablet PO ×3 (06:08→21:37)
[2018-06-09] MEDS: hydrALAZINE 50 MG Tablet PO ×3 (06:08→21:36)
[2018-06-09] MEDS: Gabapentin 400 MG Capsule PO ×3 (07:46→16:54)
[2018-06-09] MEDS: Aspirin 81 MG TAB.CHEW PO (07:46)
[2018-06-09] MEDS: Metoprolol Tartrate 50 MG Tablet PO ×2 (09:26→21:37)
[2018-06-09] MEDS: Famotidine 20 MG Tablet PO ×2 (09:26→21:37)
[2018-06-09] MEDS: Enoxaparin 40 MG/0.4 ML Syringe SC (09:26)
[2018-06-09] MEDS: Senna/Docusate Sodium 1 Tablet 2 TABLET PO (09:26)
[2018-06-09] MEDS: hydroCHLOROthiazide 25 MG Tablet PO (09:28)
--- NOTE | 2018-06-09 11:13 | CASEMGMT ---
Face to Face with patient for initial transition planning/care coordination assessment. RN ARIK introduced self and role at [facility], pt voices understanding and consents to assessment at this time. Pt is sitting up in chair in no distress at this time. Pt is A/Ox4 at this time and answers all questions appropriately at this time. Care providers, pharmacy, and demographics verified. See attached link. Pt voices no further concerns/needs at this time. Advised pt to ask for CM if any further questions/concerns/needs arise, voices understanding. Referral to [facility] for possible TCU placement, voices understanding. PLAN: TBD, pending PT shade Keenan RN, CM
--- NOTE | 2018-06-09 12:29 | PCM.PROGNOTE ---
<Elida Juarez - Last Filed: 06/09/18 12:41> Subjective: Patient resting in chair. States pain is improved. Headache improved as well. Wishes to go to TCU at discharge. - Physical Exam General: Alert, Oriented x3, Cooperative, No apparent distress HEENT: Atraumatic, PERRLA, EOMI, Normocephalic Neck: Supple, No JVD, Negative Carotid Bruits Lungs: Clear to auscultation, Normal air movement Cardiovascular: Regular rate, Regular Rhythm, Normal S1, Normal S2, No murmurs Abdomen: Bowel Sounds Present, Soft, Non Tender, Non-Distended, Obese Extremities: No clubbing, No cyanosis, No edema, Capillary Refill Less than 3 Seconds Skin: No rashes, No breakdown Musculoskeletal: No Tenderness to Palpation of Joints or Extremities Neurological: Cranial nerves II-XII grossly intact, Neuro grossly intact Psych/Mental Status: Normal Affect, Appropriate Vital Signs Temp Pulse Resp BP Pulse Ox 99.1 F 78 16 149/70 H 95 06/09/18 09:26 06/09/18 11:02 06/09/18 09:26 06/09/18 09:26 06/09/18 09:26 Oxygen Delivery Method Room Air Weight: 261 lb 0.437 oz Body Mass Index (BMI) 46.2 Intake and Output for Last 24 Hours 06/07/18 06/08/18 06/09/18 23:59 23:59 23:59 Intake Total 240 / 240 1020 / 1020 800 / 800 Balance 240 / 240 1020 / 1020 800 / 800 Medical Necessity - Tobacco Use Smoking Status: Never smoker Assessment/Plan All Active Problems (Last Updated 04/21/18 @ 08:01 by Roseanne Berry) Chest pain (Resolved) Headache (Resolved) Hypertensive urgency (Resolved) Hypertensive urgency, malignant (Resolved) 1. Hypertensive Emergency-history of uncontrolled hypertension. Home hydralazine regimen increased to 50 mg p.o. 3 times daily. Hydrochlorothiazide 25 mg daily. Continue home metoprolol regimen. Renal ultrasound showed normal aortic diameter and flow, less than 60% stenosis bilateral renal arteries. PRN pain regimen, feel elevated BP may be secondary to severe back pain. Continue as needed labetalol. BP improved. 2. Headache with left head and face paresthesias-CVA ruled out. Suspect complex migraine. History of migraines. Brain CT showed no acute intracranial abnormality. CT of head unremarkable. Neck CTA showed patent bilateral carotid arteries. MRI of brain negative for acute findings. Neurology following. 3. Debility secondary to intractable lumbar chronic back pain/osteoarthritis-MRI of lumbar spine 05/30/2018 showed multilevel advanced degenerative changes in the lumbar spine, resulting in moderate to severe degrees of spinal canal stenosis greatest at L2-L3, overall grossly stable compared with prior study. There is new tortuosity/clumping of the cauda equina nerve roots at L4-L5 which could relate to high-grade spinal stenosis however sequela of prior arachnoiditis is difficult to entirely exclude. Patient has upcoming appt with spine surgeon at [facility]. MRI of cervical spine in 2014 showed moderate to severe central canal and foraminal stenosis at C5-C6 and C6-C7 with multilevel degenerative changes. PT/OT. Recent fall at home secondary to lower back pain with radiation to left leg/left leg paresthesias. Fall precautions. Consult Dr. Morley. Home gabapentin regimen increased. MRI of cervical spine shows spinal stenosis at C5-C6 and C6-C7 secondary to disc disease and bony hypertrophy. Dr. Morley discussed with patient possible lumbar back steroid injection. Patient reports Dr. Morley was going to review her records last evening and see patient again today with further recommendations. 3. Chronic kidney disease stage III- stable. 4. Obstructive sleep apnea-intermittently noncompliant with CPAP. CPAP nightly. Patient instructed on importance of regimen. 5. GERD-continue PPI. DVT prophylaxis-Lovenox subcu. Discharge planning: TCU pending bed availability. This patient was seen by FAISAL Kumar under the supervision of Dr. Tapia. <Andrade Tapia - Last Filed: 06/09/18 17:30> Subjective: Headache better. - Physical Exam General: Alert, No apparent distress HEENT: Atraumatic, Normocephalic Neck: No Nodes, Thyroid Normal Size and Texture Lungs: Clear to auscultation, Normal air movement, No rhonchi, No wheeze Cardiovascular: Regular rate, Regular Rhythm, Normal S1, Normal S2, No murmurs Abdomen: Bowel Sounds Present, Soft, Non Tender, Non-Distended Extremities: No edema, No Calf Tenderness Skin: No rashes, No breakdown Psych/Mental Status: Normal Affect, Appropriate Vital Signs Temp Pulse Resp BP Pulse Ox 37.2 C 75 18 115/76 96 06/09/18 15:25 06/09/18 15:25 06/09/18 15:25 06/09/18 15:25 06/09/18 15:25 Oxygen Delivery Method Room Air Weight: 118.4 kg Body Mass Index (BMI) 46.2 Intake and Output for Last 24 Hours 06/07/18 06/08/18 06/09/18 23:59 23:59 23:59 Intake Total 240 / 240 1020 / 1020 800 / 800 Balance 240 / 240 1020 / 1020 800 / 800 Assessment/Plan Patient seen and examined independently. Data reviewed. I agree with the above note by the nurse practitioner. 1. Migraine Ongoing. Unclear etiology. Could be related with uncontrolled hypertension versus analgesic rebound versus primary migraine variant Given the paresthesias, patient has undergone an MRI of her brain and neck Further recommendations based on final MRI reports 2. Hypertensive emergency Present on arrival Blood pressure overall better Continue with hydralazine 50 mg 3 times daily, metoprolol 50 mg twice daily, HCTZ 25 mg daily Patient has allergic reaction to lisinopril and adverse reaction to amlodipine If blood pressure continues to remain elevated, could consider the addition of clonidine 3.Back pain Also has a radicular component Patient scheduled to follow-up with a surgeon at [facility] on the Continue with pain control did discuss the possibility of analgesic rebound is positive for headaches Discussed with patient's daughter. Plan is for the patient to go to the transitional care unit on the . Code Visit Inpatient E&M: 28024 Subs Hosp L2
--- NOTE | 2018-06-09 17:10 | CASEMGMT ---
Social Work: Met with patient and daughter in room. Patient is agreeable to SNF placement and is requesting TCU. TC to [facility] in TCU. [facility] states they are able to accept patient when medically ready. Spoke with patient and daughter in room. Both aware that TCU is able to accept patient when medially ready. PLAN: Patient to be discharged to TCU when medically ready. IESHA Pyle
[2018-06-09] MEDS: Acetaminophen 325 MG Tablet 650 MG PO (21:36)
[2018-06-10] VITALS (10 sets, daily range): BP systolic 117–137; BP diastolic 52–70; PULSE 59–74; RESP 16–18; TEMP 36.4–36.8; O2SAT 94–97
[2018-06-10] MEDS: hydrALAZINE 50 MG Tablet PO ×2 (05:42→13:58)
[2018-06-10] MEDS: Baclofen 10 MG Tablet PO ×2 (05:42→13:59)
[2018-06-10] MEDS: oxyCODONE 5 MG Tablet PO ×2 (06:51→11:54)
[2018-06-10] MEDS: Acetaminophen 325 MG Tablet 650 MG PO (06:52)
[2018-06-10] MEDS: Aspirin 81 MG TAB.CHEW PO (10:01)
[2018-06-10] MEDS: Gabapentin 400 MG Capsule PO ×2 (10:02→11:49)
[2018-06-10] MEDS: hydroCHLOROthiazide 25 MG Tablet PO (10:03)
[2018-06-10] MEDS: Metoprolol Tartrate 50 MG Tablet PO (10:04)
[2018-06-10] MEDS: Enoxaparin 40 MG/0.4 ML Syringe SC (10:04)
[2018-06-10] MEDS: Senna/Docusate Sodium 1 Tablet 2 TABLET PO (10:04)
[2018-06-10] MEDS: Psyllium 1 PACKET PO (10:04)
[2018-06-10] MEDS: Famotidine 20 MG Tablet PO (10:04)
[2018-06-10] MEDS: Magnesium Hydroxide 30 ML UDC PO (10:06)
--- NOTE | 2018-06-10 11:17 | TREXTCA.CO_ITS ---
- Diet 06/07/18 15:41 Diet: Cardiac/Low Cholesterol Food consistency:: Regular Liquid Consistency:: Regular/Thin - Routine Orders/Code Status Enema Type: Fleetz Enema Frequency: Daily PRN Suppository Type: Dulcolax 10mg Suppository Frequency: Daily PRN Code Status: Full Code - Suggestions for Active Care Change Position every (hours): 2 Times a day to sit in chair: 3 - Therapies Physical Therapy: Eval and Treat Occupational Therapy: Eval and Treat - Problem/Diagnosis (1) Hypertension Status: Chronic Current Visit: No (2) Morbid obesity with BMI of 40.0-44.9, adult Status: Chronic Current Visit: No (3) Osteoarthritis Status: Chronic Current Visit: Yes (4) CHRISTIANA (obstructive sleep apnea) Status: Chronic Current Visit: Yes (5) GERD (gastroesophageal reflux disease) Status: Chronic Current Visit: Yes (6) History of migraine Status: Chronic Current Visit: Yes - Allergies/Procedures Done in Hospital Allergies/Adverse Reactions: Allergies bee pollen Allergy (Verified 06/07/18 12:05) Swelling erythromycin base [Erythromycin Base] Allergy (Verified 06/07/18 12:05) Rash lisinopril Allergy (Verified 06/07/18 12:05) Swelling amlodipine Adverse Reaction (Verified 06/08/18 18:12) Swelling latex Adverse Reaction (Verified 06/07/18 12:05) Swelling Procedures: None - Type of Care/Length of Stay Estimated LOS: Convalescent Care Less Than 30 days Type of Care Needed: Skilled Rehab Potential: Fair Prognosis: Good - Additional Orders/Day of Discharge H&P will serve as current which was dated: 06/07/18 Day of Discharge: 06/10/18 - Dietary and Speech Recommendations Dietitian Recommendations/Changes: Suggest diet change to 1800 calorie/cardiac/ low sodium. - Follow Up Care Primary Care Physician: Javier Mar Chi, MD [Primary Care Provider] - Please follow up with your Primary Care Physician in: 1 Week Please Follow Up With: Carmen Morley MD When: To follow at [facility] Please Follow Up With: [facility] When: As scheduled, please call and put on wait list for sooner appt.
--- NOTE | 2018-06-10 11:21 | PCM.DC.SUM ---
<LarryElida - Last Filed: 06/10/18 14:46> Discharge Date and Diagnosis Date of Admission: 06/07/18 Date of Discharge: 06/10/18 - Primary Discharge Diagnosis 1. Hypertensive emergency 2. Complex migraine 3. Debility secondary to intractable lumbar back pain - Secondary Discharge Diagnosis Chronic Problems (Last Updated 04/21/18 @ 08:01 by Roseanne Berry) Osteoarthritis (Chronic) CHRISTIANA (obstructive sleep apnea) (Chronic) GERD (gastroesophageal reflux disease) (Chronic) History of migraine (Chronic) Hypertension (Chronic) Morbid obesity with BMI of 40.0-44.9, adult (Chronic) Hospital Course and Treatment Imaging Results: Diagnostic Data Brain CT 06/07/18 12:21 IMPRESSION: Chronic involutional changes. No acute intracranial abnormality. Electronically Signed: Jeff Juarez DO at 13:37 EDT Tel , Service support , Head CTA 06/07/18 15:29 IMPRESSION: Normal [place] without a demonstrated aneurysm or hemodynamically significant stenosis. Electronically Signed: Isma Marcos MD at 17:42 EDT , Service support , Neck CTA 06/07/18 15:29 IMPRESSION: 1. Patent bilateral cervical carotid arteries without hemodynamically significant stenosis. 2. Patent bilateral vertebral arteries. 3. Multilevel degenerative changes of the cervical spine. 4. 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 Electronically Signed: Isma Marcos MD at 17:59 EDT , Service support , Brain MRI 06/08/18 07:33 IMPRESSION: Atrophy and moderate periventricular white matter ischemic changes without evidence for acute infarct Electronically Signed: Kavin Murphy MD at 18:37 EDT , Service support , Cervical Spine MRI 09/17/18 07:33 IMPRESSION: Moderate spondylosis.. Spinal stenosis at C5-6 and C6-7 secondary to disc disease and bony hypertrophy with findings as above Electronically Signed: Kavin Murphy MD at 18:42 EDT , Service support , Dr. Morley- Pain Management Dr. Patel- Neurology Operations: None Procedures: None Summary of Care Provided: The patient is a 72 year old F admitted 06/07/2018 due to headache, paresthesia of left head and face and high blood pressure. 1. Hypertensive Emergency-history of uncontrolled hypertension. Home hydralazine regimen increased to 50 mg p.o. 3 times daily. Hydrochlorothiazide 25 mg daily. Continue home metoprolol regimen. Renal ultrasound showed normal aortic diameter and flow, less than 60% stenosis bilateral renal arteries. PRN pain regimen, feel elevated BP may be secondary to severe back pain. BP improved. 2. Headache with left head and face paresthesias-CVA ruled out. Suspect complex migraine. History of migraines. Brain CT showed no acute intracranial abnormality. CT of head unremarkable. Neck CTA showed patent bilateral carotid arteries. MRI of brain negative for acute findings. 3. Debility secondary to intractable lumbar chronic back pain/osteoarthritis-MRI of lumbar spine 05/30/2018 showed multilevel advanced degenerative changes in the lumbar spine, resulting in moderate to severe degrees of spinal canal stenosis greatest at L2-L3, overall grossly stable compared with prior study. There is new tortuosity/clumping of the cauda equina nerve roots at L4-L5 which could relate to high-grade spinal stenosis however sequela of prior arachnoiditis is difficult to entirely exclude. Patient has upcoming appt with spine surgeon at [facility]. MRI of cervical spine in 2014 showed moderate to severe central canal and foraminal stenosis at C5-C6 and C6-C7 with multilevel degenerative changes. PT/OT. Recent fall at home secondary to lower back pain with radiation to left leg/left leg paresthesias. Fall precautions. Dr. Morley consulted and will continue to follow at TCU. Home gabapentin regimen increased. MRI of cervical spine shows spinal stenosis at C5-C6 and C6-C7 secondary to disc disease and bony hypertrophy. Dr. Morley discussed with patient possible lumbar back steroid injection. Patient reports Dr. Morley was going to review her records and continue to follow patient at TCU for further recommendations regarding pain management. Patient has upcoming appointment this month with [facility] for surgical evaluation. 3. Chronic kidney disease stage III- stable. 4. Obstructive sleep apnea-intermittently noncompliant with CPAP. CPAP nightly. Patient instructed on importance of regimen. 5. GERD-continue PPI. General: Alert, Oriented x3, Cooperative, No apparent distress HEENT: Atraumatic, PERRLA, EOMI, Normocephalic Neck: Supple, No JVD, Negative Carotid Bruits Lungs: Clear to auscultation, Normal air movement Cardiovascular: Regular rate, Regular Rhythm, Normal S1, Normal S2, No murmurs Abdomen: Bowel Sounds Present, Soft, Non Tender, Non-Distended, Obese Extremities: No clubbing, No cyanosis, No edema, Capillary Refill Less than 3 Seconds Skin: No rashes, No breakdown Musculoskeletal: No Tenderness to Palpation of Joints or Extremities Neurological: Cranial nerves II-XII grossly intact, Neuro grossly intact Psych/Mental Status: Normal Affect, Appropriate Patient seen exam prior to discharge. Physical assessment as noted above. Patient is stable for discharge to longterm facility. This patient was seen by FAISAL Kumar under the supervision of Dr. Tapia. Home Medications: Medications to take at Discharge Aspirin [Aspirin, Baby] 81 mg PO DAILY@0800 06/07/18 Baclofen [Lioresal] 10 mg PO BID 06/07/18 L.acidoph,Paracasei, B.lactis [Probiotic] 1 each PO BID 06/07/18 Metoprolol Tartrate 50 mg PO BID 06/07/18 Potassium Chloride [K-Dur] 10 meq PO BID 06/07/18 Propranolol HCl 60 mg PO DAILY 06/07/18 Gabapentin [Neurontin] 400 mg PO TIDCM 06/10/18 Hydrochlorothiazide [Hctz] 25 mg PO DAILY 06/10/18 Oxycodone [Oxyir] 5 - 10 mg PO Q4H PRN PRN 5 Days tablet 06/10/18 hydrALAZINE [Apresoline] 50 mg PO TID 06/10/18 Primary Care Physician: Javier Mar Chi, MD [Primary Care Provider] - Please follow up with your Primary Care Physician in: 1 Week Please Follow Up With: Carmen Morley MD When: To follow at TCU Please Follow Up With: [facility] When: As scheduled, please call and put on wait list for sooner appt. Disposition: Long-Term facility Minutes spent on discharge:: 35 Patient Condition:: Stable Medical Necessity - Tobacco Use Smoking Status: Never smoker Meaningful Use Info Meaningful Use Diagnoses (Choose all that apply): None applicable <ReginaAndrade - Last Filed: 06/10/18 16:52> Discharge Date and Diagnosis - Secondary Discharge Diagnosis Chronic Problems (Last Updated 04/21/18 @ 08:01 by Roseanne Berry) Osteoarthritis (Chronic) CHRISTIANA (obstructive sleep apnea) (Chronic) GERD (gastroesophageal reflux disease) (Chronic) History of migraine (Chronic) Hypertension (Chronic) Morbid obesity with BMI of 40.0-44.9, adult (Chronic) Hospital Course and Treatment Operations: None Procedures: None Summary of Care Provided: Patient seen and examined independently. Data reviewed. I agree with the above note by the nurse practitioner. The patient is a 72 year old F presents with headache and left facial paresthesias. For the headache, patient underwent an MRI that showed no evidence of acute stroke. MRI of cervical spine that showed some mild disc bulge and arthritis but no cord compression. Patient does have chronic back pain and some radicular left leg pain. Patient has been had an MRI of her lumbar spine previously and is scheduled to see a physician at the [facility] for further evaluation. Plan is for the patient to go to the middle of that stay, see the orthopedic surgeon and then eventually go back to home. [] Disposition: Long-Term facility Minutes spent on discharge:: 35 Patient Condition:: Stable Meaningful Use Info Meaningful Use Diagnoses (Choose all that apply): None applicable Code Visit Inpatient E&M: 35389 Disch Hosp
--- NOTE | 2018-06-10 11:29 | DS.PCM_ITS ---
Addendum entered and electronically signed by FAISAL Kumar 06/10/18 14:47: Code Visit Addendum to discharge diagnosis #1-hypertensive urgency, not hypertensive emergency given no evidence of organ dysfunction. Original Note: <Elida Juarez - Last Filed: 06/10/18 14:46> Discharge Date and Diagnosis Date of Admission: 06/07/18 Date of Discharge: 06/10/18 - Primary Discharge Diagnosis 1. Hypertensive emergency 2. Complex migraine 3. Debility secondary to intractable lumbar back pain - Secondary Discharge Diagnosis Chronic Problems (Last Updated 04/21/18 @ 08:01 by Roseanne Berry) Osteoarthritis (Chronic) CHRISTIANA (obstructive sleep apnea) (Chronic) GERD (gastroesophageal reflux disease) (Chronic) History of migraine (Chronic) Hypertension (Chronic) Morbid obesity with BMI of 40.0-44.9, adult (Chronic) Hospital Course and Treatment Imaging Results: Diagnostic Data Brain CT 06/07/18 12:21 IMPRESSION: Chronic involutional changes. No acute intracranial abnormality. Electronically Signed: Jeff Juarez DO at 13:37 EDT Tel , Service support , Head CTA 06/07/18 15:29 IMPRESSION: Normal [place] of [place] without a demonstrated aneurysm or hemodynamically significant stenosis. Electronically Signed: Isma Marcos MD at 17:42 EDT , Service support , Neck CTA 06/07/18 15:29 IMPRESSION: 1. Patent bilateral cervical carotid arteries without hemodynamically significant stenosis. 2. Patent bilateral vertebral arteries. 3. Multilevel degenerative changes of the cervical spine. 4. 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 Electronically Signed: Isma Marcos MD at 17:59 EDT , Service support , Brain MRI 06/08/18 07:33 IMPRESSION: Atrophy and moderate periventricular white matter ischemic changes without evidence for acute infarct Electronically Signed: Kavin Murphy MD at 18:37 EDT , Service support , Cervical Spine MRI 06/08/18 07:33 IMPRESSION: Moderate spondylosis.. Spinal stenosis at C5-6 and C6-7 secondary to disc disease and bony hypertrophy with findings as above Electronically Signed: Kavin Murphy MD at 18:42 EDT , Service support , Dr. Morley- Pain Management Dr. Patel- Neurology Operations: None Procedures: None Summary of Care Provided: The patient is a 72 year old F admitted 06/07/2018 due to headache, paresthesia of left head and face and high blood pressure. 1. Hypertensive Emergency-history of uncontrolled hypertension. Home hydralazine regimen increased to 50 mg p.o. 3 times daily. Hydrochlorothiazide 25 mg daily. Continue home metoprolol regimen. Renal ultrasound showed normal aortic diameter and flow, less than 60% stenosis bilateral renal arteries. PRN pain regimen, feel elevated BP may be secondary to severe back pain. BP improved. 2. Headache with left head and face paresthesias-CVA ruled out. Suspect complex migraine. History of migraines. Brain CT showed no acute intracranial abnormality. CT of head unremarkable. Neck CTA showed patent bilateral carotid arteries. MRI of brain negative for acute findings. 3. Debility secondary to intractable lumbar chronic back pain/osteoarthritis- MRI of lumbar spine 05/30/2018 showed multilevel advanced degenerative changes in the lumbar spine, resulting in moderate to severe degrees of spinal canal stenosis greatest at L2-L3, overall grossly stable compared with prior study. There is new tortuosity/clumping of the cauda equina nerve roots at L4-L5 which could relate to high-grade spinal stenosis however sequela of prior arachnoiditis is difficult to entirely exclude. Patient has upcoming appt with spine surgeon at [facility]. MRI of cervical spine in 2014 showed moderate to severe central canal and foraminal stenosis at C5-C6 and C6-C7 with multilevel degenerative changes. PT/OT. Recent fall at home secondary to lower back pain with radiation to left leg/left leg paresthesias. Fall precautions. Dr. Morley consulted and will continue to follow at TCU. Home gabapentin regimen increased. MRI of cervical spine shows spinal stenosis at C5-C6 and C6- C7 secondary to disc disease and bony hypertrophy. Dr. Morley discussed with patient possible lumbar back steroid injection. Patient reports Dr. Morley was going to review her records and continue to follow patient at TCU for further recommendations regarding pain management. Patient has upcoming appointment this month with [facility] for surgical evaluation. 3. Chronic kidney disease stage III- stable. 4. Obstructive sleep apnea-intermittently noncompliant with CPAP. CPAP nightly. Patient instructed on importance of regimen. 5. GERD-continue PPI. General: Alert, Oriented x3, Cooperative, No apparent distress HEENT: Atraumatic, PERRLA, EOMI, Normocephalic Neck: Supple, No JVD, Negative Carotid Bruits Lungs: Clear to auscultation, Normal air movement Cardiovascular: Regular rate, Regular Rhythm, Normal S1, Normal S2, No murmurs Abdomen: Bowel Sounds Present, Soft, Non Tender, Non-Distended, Obese Extremities: No clubbing, No cyanosis, No edema, Capillary Refill Less than 3 Seconds Skin: No rashes, No breakdown Musculoskeletal: No Tenderness to Palpation of Joints or Extremities Neurological: Cranial nerves II-XII grossly intact, Neuro grossly intact Psych/Mental Status: Normal Affect, Appropriate Patient seen exam prior to discharge. Physical assessment as noted above. Patient is stable for discharge to retirement facility. This patient was seen by FAISAL Kumar under the supervision of Dr. Tapia. Home Medications: Medications to take at Discharge Aspirin [Aspirin, Baby] 81 mg PO DAILY@0800 06/07/18 Baclofen [Lioresal] 10 mg PO BID 06/07/18 L.acidoph,Paracasei, B.lactis [Probiotic] 1 each PO BID 06/07/18 Metoprolol Tartrate 50 mg PO BID 06/07/18 Potassium Chloride [K-Dur] 10 meq PO BID 06/07/18 Propranolol HCl 60 mg PO DAILY 06/07/18 Gabapentin [Neurontin] 400 mg PO TIDCM 06/10/18 Hydrochlorothiazide [Hctz] 25 mg PO DAILY 06/10/18 Oxycodone [Oxyir] 5 - 10 mg PO Q4H PRN PRN 5 Days tablet 06/10/18 hydrALAZINE [Apresoline] 50 mg PO TID 06/10/18 Primary Care Physician: Javier Mar Chi, MD [Primary Care Provider] - Please follow up with your Primary Care Physician in: 1 Week Please Follow Up With: Carmen Morley MD When: To follow at TCU Please Follow Up With: [facility] When: As scheduled, please call and put on wait list for sooner appt. Disposition: Shelter facility Minutes spent on discharge:: 35 Patient Condition:: Stable Medical Necessity - Tobacco Use Smoking Status: Never smoker Meaningful Use Info Meaningful Use Diagnoses (Choose all that apply): None applicable <Andrade Tapia - Last Filed: 06/10/18 16:52> Discharge Date and Diagnosis - Secondary Discharge Diagnosis Chronic Problems (Last Updated 04/21/18 @ 08:01 by Roseanne Berry) Osteoarthritis (Chronic) CHRISTIANA (obstructive sleep apnea) (Chronic) GERD (gastroesophageal reflux disease) (Chronic) History of migraine (Chronic) Hypertension (Chronic) Morbid obesity with BMI of 40.0-44.9, adult (Chronic) Hospital Course and Treatment Operations: None Procedures: None Summary of Care Provided: Patient seen and examined independently. Data reviewed. I agree with the above note by the nurse practitioner. The patient is a 72 year old F presents with headache and left facial paresthesias. For the headache, patient underwent an MRI that showed no evidence of acute stroke. MRI of cervical spine that showed some mild disc bulge and arthritis but no cord compression. Patient does have chronic back pain and some radicular left leg pain. Patient has been had an MRI of her lumbar spine previously and is scheduled to see a physician at the [facility] for further evaluation. Plan is for the patient to go to the middle of that stay, see the orthopedic surgeon and then eventually go back to home. [] Disposition: Shelter facility Minutes spent on discharge:: 35 Patient Condition:: Stable Meaningful Use Info Meaningful Use Diagnoses (Choose all that apply): None applicable Code Visit Inpatient E&M: 98973 Disch Hosp
--- NOTE | 2018-06-10 13:06 | CASEMGMT ---
Patient is ready for d/c to TCU. SW spoke with patient and she did not need SW to contact her family as her daughter was just here. Plan: d/c to [facility] TCU under skilled level of care. Azalea LOERA MSW
--- NOTE | 2018-06-10 13:50 | NURSING ---
Report called to FRANCESCO Jimenez on TCU.
== END 2018-06-10 15:03 | disposition skilled nursing facility (03) | DRG 305 ==
LOC: ED 12:25 → PCU 16:01
PROVIDERS: Admitting Provider Family Medicine; Emergency Provider Emergency Medicine; Family Provider Family Medicine Geriatric Medicine; PCP Family Medicine Geriatric Medicine
DX: I16.0 Hypertensive urgency (principal); Z68.41 Body mass index [BMI] 40.0-44.9, adult; E66.01 Morbid (severe) obesity due to excess calories; G47.33 Obstructive sleep apnea (adult) (pediatric); R53.81 Other malaise; K21.9 Gastro-esophageal reflux disease without esophagitis; G43.809 Other migraine, not intractable, without status migrainosus; G89.29 Other chronic pain; M54.5 Low back pain; M48.02 Spinal stenosis, cervical region; I12.9 Hypertensive chronic kidney disease with stage 1 through stage 4 chronic kidney disease, or unspecified chronic kidney disease; N18.3 Chronic kidney disease, stage 3 (moderate); M19.90 Unspecified osteoarthritis, unspecified site
CPT/HCPCS: 36415; 70450; 70496; 70498; 70551; 72141; 80048; 80061; 83735; 84439; 84443; 85025; 85652; 93005; 93975; 97166; 97530; 97802; 99283; Q9967; A4216; J2405

== ENCOUNTER 2018-06-10 15:15 | Inpatient (IN) | payer MEDICARE, OTHER, SELFPAY ==
--- NOTE | 2018-06-10 15:15 | NURSING ---
Addendum entered by Rosales Bean 06/10/18 16:00: pt arrived via w/ch from [facility] @[id number] Original Note: pt arrived
[2018-06-10 16:00] VITALS: BP 155/73; PULSE 70; RESP 18; TEMP 36.8; O2SAT 98
[2018-06-10 16:23] VITALS: BMI 47.2
[2018-06-10 16:32] VITALS: BMI 47.3
[2018-06-10 16:59] VITALS: BP 155/73; PULSE 70
[2018-06-10] MEDS: Gabapentin 400 MG Capsule PO (16:59)
[2018-06-10] MEDS: Baclofen 10 MG Tablet PO ×2 (16:59→22:47)
[2018-06-10] MEDS: Metoprolol Tartrate 50 MG Tablet PO (16:59)
[2018-06-10] MEDS: Magnesium Citrate 300 ML PO (17:38)
[2018-06-10] MEDS: oxyCODONE 5 MG Tablet PO (18:50)
--- NOTE | 2018-06-10 20:32 | PCM.HP.STD ---
Problem List (1) Facial paresthesia Status: Acute (2) Migraine headache Status: Acute (3) Lumbar spinal stenosis Status: Chronic (4) Cervical spinal stenosis Status: Chronic (5) Lumbar radiculopathy Status: Chronic (6) Neuropathy Status: Chronic (7) Restless leg syndrome Status: Chronic (8) Sleep apnea Status: Chronic (9) Morbid obesity Status: Chronic (10) CHRISTIANA (obstructive sleep apnea) Status: Chronic (11) GERD (gastroesophageal reflux disease) Status: Chronic (12) Hypertension Status: Chronic History of Present Illness Date of Admission: 06/10/18 Chief Complaint: Here for rehabilitation, strengthening, prior to discharge home alone. The patient is a 72 year old Female with below past medical history presented to [facility] Department 06/07/2018 with high blood pressure, left eye visual changes, left facial paresthesia. 06/07/2018 CT brain chronic involutional changes. 06/07/2018 EKG normal sinus rhythm, left ventricular hypertrophy, borderline EKG. 06/07/2018 CTA head negative. 06/07/2018 CTA neck negative. Blood pressure 212 systolic at home. Low back pain with radicular pain. Angioedema from Lisinopril. CBCD, BMP okay. Morphine, Zofran given. Blood pressure improved with Labetalol. 06/07/2018 Admit to Hospital. Consider complex migraine headache. Adjust medications to control blood pressure. 06/08/2018 MRI brain negative for infarct. 06/08/2018 MRI cervical spine showed C5 - C6 spina stenosis, moderate spondylosis. 06/08/2018 Dr. Simpson recommended Gabapentin 400MG PRN. Consider Dr. Morley for pain management. 06/08/2018 Renal duplex negative for significant renal artery stenosis. Hypertension controlled with Hydralazine, HCTZ, Metoprolol. Complex migraine causing headache, left facial numbness. Cervical, Lumbar spinal stenosis, Dr. Morley consulted. 06/10/2018 Admit to TCU with debility, here for rehabilitation, strengthening, prior to discharge home alone. Past Medical History Past Medical History (Chronic Problems): Chronic Problems (Last Updated 04/21/18 @ 08:01 by Roseanne Berry) Osteoarthritis (Chronic) CHRISTIANA (obstructive sleep apnea) (Chronic) GERD (gastroesophageal reflux disease) (Chronic) History of migraine (Chronic) Lumbar spinal stenosis (Chronic) Cervical spinal stenosis (Chronic) Lumbar radiculopathy (Chronic) Neuropathy (Chronic) Restless leg syndrome (Chronic) Sleep apnea (Chronic) Morbid obesity (Chronic) Hypertension (Chronic) Morbid obesity with BMI of 40.0-44.9, adult (Chronic) Medical History: Medical History (Last Updated 04/21/18 @ 08:01 by Roseanne Berry) Hypertension (Chronic) I10 Morbid obesity with BMI of 40.0-44.9, adult (Chronic) E66.01, Z68.41 GERD (gastroesophageal reflux disease) K21.9 Osteoarthritis M19.90 Peripheral neuropathy G62.9 Restless leg syndrome G25.81 Allergies bee pollen Allergy (Verified 06/07/18 12:05) Swelling erythromycin base [Erythromycin Base] Allergy (Verified 06/07/18 12:05) Rash lisinopril Allergy (Verified 06/07/18 12:05) Swelling amlodipine Adverse Reaction (Verified 06/08/18 18:12) Swelling latex Adverse Reaction (Verified 06/07/18 12:05) Swelling Home Medications: Ambulatory Orders Medication Instructions Recorded Aspirin [Aspirin, Baby] 81 mg PO DAILY@0800 06/07/18 Baclofen [Lioresal] 10 mg PO BID 06/07/18 L.acidoph,Paracasei, B.lactis 1 each PO BID 06/07/18 [Probiotic] Metoprolol Tartrate 50 mg PO BID 06/07/18 Potassium Chloride [K-Dur] 10 meq PO BID 06/07/18 Propranolol HCl 60 mg PO DAILY 06/07/18 Gabapentin [Neurontin] 400 mg PO TIDCM 06/10/18 Hydrochlorothiazide [Hctz] 25 mg PO DAILY 06/10/18 Oxycodone [Oxyir] 5 - 10 mg PO Q4H PRN PRN 5 Days 06/10/18 tablet hydrALAZINE [Apresoline] 50 mg PO TID 06/10/18 Surgical History: Surgical History (Last Updated 04/21/18 @ 08:49 by Roseanne Berry) History of partial nephrectomy Z90.5 History of tonsillectomy Z90.89 History of total abdominal hysterectomy Z90.710 History of total knee arthroplasty Z96.659 Surgical History: hysterectomy - Bilateral oophorectomy with hyster 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 Psychiatric History: Anxiety, Depression, - - Patient suffered from anxiety/depression when her and was on Paxil but no longer takes this medication. 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 CIVIL ENGINEER history, - - Benign ovarian mass Lives: Alone Smoking Status: Never smoker Tobacco Use: Non-smoker Alcohol: None Drugs: None - *Family History Paternal Family History: Family History (Last Reviewed 06/07/18 @ 15:46 by FAISAL Kumar) Mother Hypertension History Items: No pertinent history Maternal Family History: Family History (Last Reviewed 06/07/18 @ 15:46 by FAISAL Kumar) Mother Hypertension History Items: Hypertension Review of Systems Constitutional: Denies: Chills, Fever, Weight Change HEENT: Denies: Head Aches, Sinus Congestion, Sinus Drainage Cardiovascular: Denies: Chest Pain, Palpitations Respiratory: Denies: Cough, Shortness of breath at rest, Sputum production Gastrointestinal: Reports: Constipation. Denies: Abdominal Pain, Nausea, Vomiting Genitourinary: Denies: Dysuria Musculoskeletal: Denies: Joint Pain, Joint Tenderness Skin: Denies: Rash, Wounds Neurological: Denies: Numbness, Tingling, Focal weakness Psychiatric: Denies: Anxiety, Depression, Homicidal Ideations, Suicidal Ideations Hematologic/ Lymphatic: Denies: Easy Bruising, Easy Bleeding VTE Information - Inpt Only VTE Present on Admission: No VTE Mechan Device Prophylaxis: Knee High JONNA Hose VTE Pharm Prophylaxis ordered?: Yes Patient Problems: Active and Suspected Problems (Last Updated 04/21/18 @ 08:01 by Roseanne Berry) Facial paresthesia (Acute) Migraine headache (Acute) - Physical Exam General: Alert, Oriented x3, Cooperative HEENT: Atraumatic, PERRLA, EOMI, Normocephalic Neck: Supple, No JVD, Negative Carotid Bruits Lungs: Clear to auscultation, Normal air movement Cardiovascular: Regular rate, No murmurs Abdomen: Bowel Sounds Present, Soft, Non Tender Extremities: No edema, Capillary Refill Less than 3 Seconds Skin: No rashes, No breakdown Musculoskeletal: No Tenderness to Palpation of Joints or Extremities Neurological: Cranial nerves II-XII grossly intact Psych/Mental Status: Normal Affect, Appropriate Vital Signs Temp Pulse Resp BP Pulse Ox 98.3 F 70 18 155/73 H 98 06/10/18 16:00 06/10/18 16:59 06/10/18 16:00 06/10/18 16:59 06/10/18 16:00 Oxygen Delivery Method Room Air Weight: 121.1 kg Body Mass Index (BMI) 47.2 Assessment/Plan All Active Problems (Last Updated 04/21/18 @ 08:01 by Roseanne Berry) Facial paresthesia (Acute) Migraine headache (Acute) Chest pain (Resolved) Headache (Resolved) Hypertensive urgency (Resolved) Hypertensive urgency, malignant (Resolved) 72 year old female with below past medical history hospitalized for Hypertension requiring medication adjustment, headache thought to be complex migraine, lumbar spinal stenosis resulting in debility, admit to TCU for rehabilitation, strengthening, prior to discharge home alone. Debility - PT/OT. Pain - Tylenol 1000MG Q8H, Oxycodone 5MG Q4H PRN severe pain. Bowel - Miralax 17GM daily, Senna/Colace 2 tablets BID, Dulcolax 10MG [place] daily PRN, Magnesium citrate 300ML PO x 1 dose. Pneumonia vaccination - Administer Prevnar 13 and/or Pneumovax 23 as necessary. DVT prophylaxis - Lovenox 40MG SC daily. Muscle spasm - Baclofen 10MG TID. Neuropathic pain - Gabapentin 400MG TID. Hypertension - Metoprolol 50MG BID, Hydralazine 50MG TID, HCTZ 25MG daily. GI prophylaxis - Lactobacillus 1 tablet BID. Hypokalemia - K-Dur 10MEQ BID. Lumbar spinal stenosis - Medrol Dosepak, Diclofenac 50MG BID with food, Dr. Morley.
--- NOTE | 2018-06-10 20:40 | HP.PCM_ITS ---
Problem List (1) Facial paresthesia Status: Acute (2) Migraine headache Status: Acute (3) Lumbar spinal stenosis Status: Chronic (4) Cervical spinal stenosis Status: Chronic (5) Lumbar radiculopathy Status: Chronic (6) Neuropathy Status: Chronic (7) Restless leg syndrome Status: Chronic (8) Sleep apnea Status: Chronic (9) Morbid obesity Status: Chronic (10) CHRISTIANA (obstructive sleep apnea) Status: Chronic (11) GERD (gastroesophageal reflux disease) Status: Chronic (12) Hypertension Status: Chronic History of Present Illness Date of Admission: 06/10/18 Chief Complaint: Here for rehabilitation, strengthening, prior to discharge home alone. The patient is a 72 year old Female with below past medical history presented to [facility] Emergency Department 06/07/2018 with high blood pressure, left eye visual changes, left facial paresthesia. 06/07/2018 CT brain chronic involutional changes. 06/07/2018 EKG normal sinus rhythm, left ventricular hypertrophy, borderline EKG. 06/07/2018 CTA head negative. 06/07/2018 CTA neck negative. Blood pressure 212 systolic at home. Low back pain with radicular pain. Angioedema from Lisinopril. CBCD, BMP okay. Morphine, Zofran given. Blood pressure improved with Labetalol. 06/07/2018 Admit to Hospital. Consider complex migraine headache. Adjust medications to control blood pressure. 06/08/2018 MRI brain negative for infarct. 06/08/2018 MRI cervical spine showed C5 - C6 spina stenosis, moderate spondylosis. 06/08/2018 Dr. Simpson recommended Gabapentin 400MG PRN. Consider Dr. Morley for pain management. 06/08/2018 Renal duplex negative for significant renal artery stenosis. Hypertension controlled with Hydralazine, HCTZ, Metoprolol. Complex migraine causing headache, left facial numbness. Cervical, Lumbar spinal stenosis, Dr. Morley consulted. 06/10/2018 Admit to TCU with debility, here for rehabilitation, strengthening, prior to discharge home alone. Past Medical History Past Medical History (Chronic Problems): Chronic Problems (Last Updated 04/21/18 @ 08:01 by Roseanne Berry) Osteoarthritis (Chronic) CHRISTIANA (obstructive sleep apnea) (Chronic) GERD (gastroesophageal reflux disease) (Chronic) History of migraine (Chronic) Lumbar spinal stenosis (Chronic) Cervical spinal stenosis (Chronic) Lumbar radiculopathy (Chronic) Neuropathy (Chronic) Restless leg syndrome (Chronic) Sleep apnea (Chronic) Morbid obesity (Chronic) Hypertension (Chronic) Morbid obesity with BMI of 40.0-44.9, adult (Chronic) Medical History: Medical History (Last Updated 04/21/18 @ 08:01 by Roseanne Berry) Hypertension (Chronic) I10 Morbid obesity with BMI of 40.0-44.9, adult (Chronic) E66.01, Z68.41 GERD (gastroesophageal reflux disease) K21.9 Osteoarthritis M19.90 Peripheral neuropathy G62.9 Restless leg syndrome G25.81 Allergies bee pollen Allergy (Verified 06/07/18 12:05) Swelling erythromycin base [Erythromycin Base] Allergy (Verified 06/07/18 12:05) Rash lisinopril Allergy (Verified 06/07/18 12:05) Swelling amlodipine Adverse Reaction (Verified 06/08/18 18:12) Swelling latex Adverse Reaction (Verified 06/07/18 12:05) Swelling Home Medications: Ambulatory Orders Medication Instructions Recorded Aspirin [Aspirin, Baby] 81 mg PO DAILY@0800 06/07/18 Baclofen [Lioresal] 10 mg PO BID 06/07/18 L.acidoph,Paracasei, B.lactis 1 each PO BID 06/07/18 [Probiotic] Metoprolol Tartrate 50 mg PO BID 06/07/18 Potassium Chloride [K-Dur] 10 meq PO BID 06/07/18 Propranolol HCl 60 mg PO DAILY 06/07/18 Gabapentin [Neurontin] 400 mg PO TIDCM 06/10/18 Hydrochlorothiazide [Hctz] 25 mg PO DAILY 06/10/18 Oxycodone [Oxyir] 5 - 10 mg PO Q4H PRN PRN 5 Days 06/10/18 tablet hydrALAZINE [Apresoline] 50 mg PO TID 06/10/18 Surgical History: Surgical History (Last Updated 04/21/18 @ 08:49 by Roseanne Berry) History of partial nephrectomy Z90.5 History of tonsillectomy Z90.89 History of total abdominal hysterectomy Z90.710 History of total knee arthroplasty Z96.659 Surgical History: hysterectomy - Bilateral oophorectomy with hyster 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 Psychiatric History: Anxiety, Depression, - - Patient suffered from anxiety/ depression when her and was on Paxil but no longer takes this medication. 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, - - Benign ovarian mass Lives: Alone Smoking Status: Never smoker Tobacco Use: Non-smoker Alcohol: None Drugs: None - *Family History Paternal Family History: Family History (Last Reviewed 06/07/18 @ 15:46 by FAISAL Kumar) Mother Hypertension History Items: No pertinent history Maternal Family History: Family History (Last Reviewed 06/07/18 @ 15:46 by FAISAL Kumar) Mother Hypertension History Items: Hypertension Review of Systems Constitutional: Denies: Chills, Fever, Weight Change HEENT: Denies: Head Aches, Sinus Congestion, Sinus Drainage Cardiovascular: Denies: Chest Pain, Palpitations Respiratory: Denies: Cough, Shortness of breath at rest, Sputum production Gastrointestinal: Reports: Constipation. Denies: Abdominal Pain, Nausea, Vomiting Genitourinary: Denies: Dysuria Musculoskeletal: Denies: Joint Pain, Joint Tenderness Skin: Denies: Rash, Wounds Neurological: Denies: Numbness, Tingling, Focal weakness Psychiatric: Denies: Anxiety, Depression, Homicidal Ideations, Suicidal Ideations Hematologic/ Lymphatic: Denies: Easy Bruising, Easy Bleeding VTE Information - Inpt Only VTE Present on Admission: No VTE Mechan Device Prophylaxis: Knee High JONNA Hose VTE Pharm Prophylaxis ordered?: Yes Patient Problems: Active and Suspected Problems (Last Updated 04/21/18 @ 08:01 by Roseanne Berry) Facial paresthesia (Acute) Migraine headache (Acute) - Physical Exam General: Alert, Oriented x3, Cooperative HEENT: Atraumatic, PERRLA, EOMI, Normocephalic Neck: Supple, No JVD, Negative Carotid Bruits Lungs: Clear to auscultation, Normal air movement Cardiovascular: Regular rate, No murmurs Abdomen: Bowel Sounds Present, Soft, Non Tender Extremities: No edema, Capillary Refill Less than 3 Seconds Skin: No rashes, No breakdown Musculoskeletal: No Tenderness to Palpation of Joints or Extremities Neurological: Cranial nerves II-XII grossly intact Psych/Mental Status: Normal Affect, Appropriate Vital Signs Temp Pulse Resp BP Pulse Ox 98.3 F 70 18 155/73 H 98 06/10/18 16:00 06/10/18 16:59 06/10/18 16:00 06/10/18 16:59 06/10/18 16:00 Oxygen Delivery Method Room Air Weight: 121.1 kg Body Mass Index (BMI) 47.2 Assessment/Plan All Active Problems (Last Updated 04/21/18 @ 08:01 by Roseanne Berry) Facial paresthesia (Acute) Migraine headache (Acute) Chest pain (Resolved) Headache (Resolved) Hypertensive urgency (Resolved) Hypertensive urgency, malignant (Resolved) 72 year old female with below past medical history hospitalized for Hypertension requiring medication adjustment, headache thought to be complex migraine, lumbar spinal stenosis resulting in debility, admit to TCU for rehabilitation, strengthening, prior to discharge home alone. * Debility - PT/OT. * Pain - Tylenol 1000MG Q8H, Oxycodone 5MG Q4H PRN severe pain. * Bowel - Miralax 17GM daily, Senna/Colace 2 tablets BID, Dulcolax 10MG KS daily PRN, Magnesium citrate 300ML PO x 1 dose. * Pneumonia vaccination - Administer Prevnar 13 and/or Pneumovax 23 as necessary. * DVT prophylaxis - Lovenox 40MG SC daily. * Muscle spasm - Baclofen 10MG TID. * Neuropathic pain - Gabapentin 400MG TID. * Hypertension - Metoprolol 50MG BID, Hydralazine 50MG TID, HCTZ 25MG daily. * GI prophylaxis - Lactobacillus 1 tablet BID. * Hypokalemia - K-Dur 10MEQ BID. * Lumbar spinal stenosis - Medrol Dosepak, Diclofenac 50MG BID with food, Dr. Morley.
[2018-06-10] MEDS: Nystatin Powder 15gm Bottle 1 APPLIC TOPICAL (20:50)
[2018-06-10 20:51] VITALS: BP 150/71; PULSE 64
[2018-06-10] MEDS: hydrALAZINE 50 MG Tablet PO (20:51)
[2018-06-10] MEDS: Acetaminophen 500 MG Tablet 1000 MG PO (22:47)
[2018-06-11] VITALS (7 sets, daily range): BP systolic 146–165; BP diastolic 64–78; PULSE 64–83; RESP 18–22; TEMP 36.2; O2SAT 95–98
[2018-06-11] MEDS: oxyCODONE 5 MG Tablet PO ×3 (03:40→22:07)
[2018-06-11 06:00] LABS: Absolute Lymphocyte Count 3.26 X10^3/ul (0.83-4.51); Absolute Neutrophil Count 3.9 X10^3/uL (2.0-7.7); Basophil# 0.03 X10^3/uL; Basophil% 0.4 % (0-1); Eosinophil# 0.56 X10^3/uL; Eosinophils% 6.5 % (0-5); Hematocrit 41.4 % (37-47); Lymphocyte # 3.26 X10^3/ul (4.0); Mean Corp Hgb Conc 31.4 g/gl (32-36); Mean Corpuscular Hgb 30.7 pg (27.0-32.0); Mean Corpuscular Volume 97.9 fL (81-99); Mean Platelet Vol. 10.1 fl (6.2-12.0); Monocyte# 0.83 X10^3/uL; Monocyte% 9.7 % (0-10); Neutrophil # 3.87 X10^3/uL (2.7-7.7); Neutrophil % 45.2 % (47-70); Platelet Count 197 K/mm3 (150-450); RBC Distribution Width CV 14.4 % (11.6-14.6); RBC Distribution Width SD 50.7 fl (35.1-43.9); Red Blood Count 4.23 M/mm3 (4.2-5.4); White Blood Count 8.6 K/mm3 (4.4-11.0)
[2018-06-11 06:11] LABS: POSITIVE COUNT NO; POSITIVE DIFFERENTIAL NO; POSITIVE MORPHOLOGY NO
[2018-06-11] MEDS: Acetaminophen 500 MG Tablet 1000 MG PO ×3 (06:17→22:05)
[2018-06-11] MEDS: Metoprolol Tartrate 50 MG Tablet PO ×2 (06:18→18:26)
[2018-06-11] MEDS: hydrALAZINE 50 MG Tablet PO ×3 (06:19→22:04)
[2018-06-11] MEDS: Baclofen 10 MG Tablet PO ×3 (06:19→22:05)
[2018-06-11] MEDS: hydroCHLOROthiazide 25 MG Tablet PO (06:20)
[2018-06-11] MEDS: Enoxaparin 40 MG/0.4 ML Syringe SC (06:21)
[2018-06-11] MEDS: Nystatin Powder 15gm Bottle 1 APPLIC TOPICAL ×2 (06:22→22:08)
[2018-06-11 06:25] LABS: Anion Gap 8 (5-15); BUN 17 mg/dL (7-18); Calcium,Total 9.7 mg/dL (8.5-10.1); Chloride 100 mmol/L (98-107); Creatinine, Serum 0.85 mg/dL (0.55-1.02); EST Glomerular Filtration Rate 70 mL/min (>60); Est Glom Filt Rate - Afr Amer 84 mL/min (>60); Estimated Creatinine Clearance 48.03 ml/min; Glucose 103 mg/dL (74-106); Potassium 4.5 mmol/L (3.5-5.1); Sodium Level 143 mmol/L (136-145)
[2018-06-11] MEDS: MethylPREDNISolone DosePak 4 MG BOX PO ×4 (08:14→22:04)
[2018-06-11] MEDS: Aspirin 81 MG TAB.CHEW PO (08:15)
[2018-06-11] MEDS: Gabapentin 400 MG Capsule PO ×3 (08:16→16:53)
[2018-06-11] MEDS: Tuberculin,Purif.prot.deriv. 50 TU/ML Vial 5 ML ID (11:49)
[2018-06-12 04:44] VITALS: BP 169/87; PULSE 84
[2018-06-12] MEDS: oxyCODONE 5 MG Tablet PO ×5 (04:44→21:55)
[2018-06-12] MEDS: Metoprolol Tartrate 50 MG Tablet PO (04:44)
[2018-06-12 04:45] VITALS: BP 169/87; PULSE 84
[2018-06-12] MEDS: Baclofen 10 MG Tablet PO ×3 (04:45→21:50)
[2018-06-12] MEDS: hydrALAZINE 50 MG Tablet PO ×2 (04:45→14:50)
[2018-06-12] MEDS: Gabapentin 400 MG Capsule PO ×3 (08:25→17:14)
[2018-06-12] MEDS: MethylPREDNISolone DosePak 4 MG BOX PO ×3 (12:55→21:51)
[2018-06-12] MEDS: Triamcinolone Acetonide 40 MG/ML Vial (13:28)
--- NOTE | 2018-06-12 14:40 | PCM.TCUNOT ---
Subjective: Resident seen in room, sitting in chair, she is holding cold compress to her left eye. She has been having left sided headache, it feels like pressure, and there is numbness of the left side of her face. She has had migraines in the past, but she feels this headache is different from previous headaches. Vitals/I&O's: Vital Signs Temp Pulse Resp BP Pulse Ox 97.2 F L 84 22 H 169/87 H 95 06/11/18 15:26 06/12/18 04:45 06/11/18 15:26 06/12/18 04:45 06/11/18 15:26 Oxygen Delivery Method Room Air Weight: 121.1 kg Body Mass Index (BMI) 47.2 Intake and Output for Last 24 Hours 06/10/18 06/11/18 06/12/18 23:59 23:59 23:59 Intake Total 360 / 360 720 / 720 520 / 520 Balance 360 / 360 720 / 720 520 / 520 Past Medical History Past Medical History (Chronic Problems): Chronic Problems (Last Updated 04/21/18 @ 08:01 by Roseanne Berry) Osteoarthritis (Chronic) CHRISTIANA (obstructive sleep apnea) (Chronic) GERD (gastroesophageal reflux disease) (Chronic) History of migraine (Chronic) Lumbar spinal stenosis (Chronic) Cervical spinal stenosis (Chronic) Lumbar radiculopathy (Chronic) Neuropathy (Chronic) Restless leg syndrome (Chronic) Sleep apnea (Chronic) Morbid obesity (Chronic) Hypertension (Chronic) Morbid obesity with BMI of 40.0-44.9, adult (Chronic) Medical History: Medical History (Last Updated 04/21/18 @ 08:01 by Roseanne Berry) Hypertension (Chronic) I10 Morbid obesity with BMI of 40.0-44.9, adult (Chronic) E66.01, Z68.41 GERD (gastroesophageal reflux disease) K21.9 Osteoarthritis M19.90 Peripheral neuropathy G62.9 Restless leg syndrome G25.81 Allergies bee pollen Allergy (Verified 06/11/18 10:28) Swelling erythromycin base [Erythromycin Base] Allergy (Verified 06/11/18 10:28) Rash lisinopril Allergy (Verified 06/11/18 10:28) Swelling amlodipine Adverse Reaction (Verified 06/11/18 10:28) Swelling latex Adverse Reaction (Verified 06/11/18 10:28) Swelling Home Medications: Ambulatory Orders Medication Instructions Recorded Aspirin [Aspirin, Baby] 81 mg PO DAILY@0800 06/07/18 Baclofen [Lioresal] 10 mg PO BID 06/07/18 L.acidoph,Paracasei, B.lactis 1 each PO BID 06/07/18 [Probiotic] Metoprolol Tartrate 50 mg PO BID 06/07/18 Potassium Chloride [K-Dur] 10 meq PO BID 06/07/18 Gabapentin [Neurontin] 400 mg PO TIDCM 06/10/18 Hydrochlorothiazide [Hctz] 25 mg PO DAILY 06/10/18 Oxycodone [Oxyir] 5 - 10 mg PO Q4H PRN PRN 5 Days 06/10/18 tablet hydrALAZINE [Apresoline] 50 mg PO TID 06/10/18 Acetaminophen [Tylenol Extra 1,000 mg PO Q8 06/11/18 Strength] Aspirin E.C. 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 Psychiatric History: Anxiety, Depression, - - Patient suffered from anxiety/depression when her and was on Paxil but no longer takes this medication. 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 Denies: Sinus Congestion, Sinus Drainage Cardiovascular: Denies: Chest Pain, Palpitations Respiratory: Denies: Cough, Shortness of breath at rest, Sputum production Gastrointestinal: Denies: Abdominal Pain, Nausea, Vomiting Genitourinary: Denies: Dysuria Musculoskeletal: Denies: Joint Pain, Joint Tenderness Skin: Denies: Rash, Wounds Neurological: Denies: Numbness, Tingling, Focal weakness Psychiatric: Denies: Anxiety, Depression, Homicidal Ideations, Suicidal Ideations Hematologic/ Lymphatic: Denies: Easy Bruising, Easy Bleeding Patient Problems: Active and Suspected Problems (Last Updated 04/21/18 @ 08:01 by Roseanne Berry) Facial paresthesia (Acute) Migraine headache (Acute) - Physical Exam General: Alert, Oriented x3, Cooperative HEENT: Atraumatic, PERRLA, EOMI, Normocephalic Neck: Supple, No JVD, Negative Carotid Bruits Lungs: Clear to auscultation, Normal air movement Cardiovascular: Regular rate, No murmurs Abdomen: Bowel Sounds Present, Soft, Non Tender Extremities: No edema, Capillary Refill Less than 3 Seconds Skin: No rashes, No breakdown Musculoskeletal: No Tenderness to Palpation of Joints or Extremities Neurological: Cranial nerves II-XII grossly intact Psych/Mental Status: Normal Affect, Appropriate Vital Signs Temp Pulse Resp BP Pulse Ox 97.2 F L 84 22 H 169/87 H 95 06/11/18 15:26 06/12/18 04:45 06/11/18 15:26 06/12/18 04:45 06/11/18 15:26 Oxygen Delivery Method Room Air Weight: 121.1 kg Body Mass Index (BMI) 47.2 Intake and Output for Last 24 Hours 06/10/18 06/11/18 06/12/18 23:59 23:59 23:59 Intake Total 360 / 360 720 / 720 520 / 520 Balance 360 / 360 720 / 720 520 / 520 Assessment/Plan All Active Problems (Last Updated 04/21/18 @ 08:01 by Roseanne Berry) Facial paresthesia (Acute) Migraine headache (Acute) Chest pain (Resolved) Headache (Resolved) Hypertensive urgency (Resolved) Hypertensive urgency, malignant (Resolved) 72 year old female with below past medical history hospitalized for Hypertension requiring medication adjustment, headache thought to be complex migraine, lumbar spinal stenosis resulting in debility, admit to TCU for rehabilitation, strengthening, prior to discharge home alone. Pain - Tylenol 1000MG Q8H, Oxycodone 5MG Q4H PRN severe pain Muscle spasm - Baclofen 10MG TID. Neuropathic pain - Gabapentin 400MG TID. Hypertension - Metoprolol 50MG BID, Stop Hydralazine (headaches), HCTZ 25MG daily. Add Verapamil 240MG daily. Sore mouth - Lidocaine 2% viscous 5ML Q8H PRN. Cluster headache/Migraine headache - Verapamil 240MG daily, Depakote 500MG BID, Imitrex 100MG daily PRN headache. GI prophylaxis - Lactobacillus 1 tablet BID. Hypokalemia - K-Dur 10MEQ BID. Lumbar spinal stenosis - Medrol Dosepak, Diclofenac 50MG BID with food, Dr. Morley performed epidural steroid injection today.
[2018-06-12 14:48] VITALS: BP 184/85; PULSE 80; RESP 18; TEMP 36.9; O2SAT 96
--- NOTE | 2018-06-12 14:49 | PN_ITS ---
Subjective: Resident seen in room, sitting in chair, she is holding cold compress to her left eye. She has been having left sided headache, it feels like pressure, and there is numbness of the left side of her face. She has had migraines in the past, but she feels this headache is different from previous headaches. Vitals/I&O's: Vital Signs Temp Pulse Resp BP Pulse Ox 97.2 F L 84 22 H 169/87 H 95 06/11/18 15:26 06/12/18 04:45 06/11/18 15:26 06/12/18 04:45 06/11/18 15:26 Oxygen Delivery Method Room Air Weight: 121.1 kg Body Mass Index (BMI) 47.2 Intake and Output for Last 24 Hours 06/10/18 06/11/18 06/12/18 23:59 23:59 23:59 Intake Total 360 / 360 720 / 720 520 / 520 Balance 360 / 360 720 / 720 520 / 520 Past Medical History Past Medical History (Chronic Problems): Chronic Problems (Last Updated 04/21/18 @ 08:01 by Roseanne Berry) Osteoarthritis (Chronic) CHRISTIANA (obstructive sleep apnea) (Chronic) GERD (gastroesophageal reflux disease) (Chronic) History of migraine (Chronic) Lumbar spinal stenosis (Chronic) Cervical spinal stenosis (Chronic) Lumbar radiculopathy (Chronic) Neuropathy (Chronic) Restless leg syndrome (Chronic) Sleep apnea (Chronic) Morbid obesity (Chronic) Hypertension (Chronic) Morbid obesity with BMI of 40.0-44.9, adult (Chronic) Medical History: Medical History (Last Updated 04/21/18 @ 08:01 by Roseanne Berry) Hypertension (Chronic) I10 Morbid obesity with BMI of 40.0-44.9, adult (Chronic) E66.01, Z68.41 GERD (gastroesophageal reflux disease) K21.9 Osteoarthritis M19.90 Peripheral neuropathy G62.9 Restless leg syndrome G25.81 Allergies bee pollen Allergy (Verified 06/11/18 10:28) Swelling erythromycin base [Erythromycin Base] Allergy (Verified 06/11/18 10:28) Rash lisinopril Allergy (Verified 06/11/18 10:28) Swelling amlodipine Adverse Reaction (Verified 06/11/18 10:28) Swelling latex Adverse Reaction (Verified 06/11/18 10:28) Swelling Home Medications: Ambulatory Orders Medication Instructions Recorded Aspirin [Aspirin, Baby] 81 mg PO DAILY@0800 06/07/18 Baclofen [Lioresal] 10 mg PO BID 06/07/18 L.acidoph,Paracasei, B.lactis 1 each PO BID 06/07/18 [Probiotic] Metoprolol Tartrate 50 mg PO BID 06/07/18 Potassium Chloride [K-Dur] 10 meq PO BID 06/07/18 Gabapentin [Neurontin] 400 mg PO TIDCM 06/10/18 Hydrochlorothiazide [Hctz] 25 mg PO DAILY 06/10/18 Oxycodone [Oxyir] 5 - 10 mg PO Q4H PRN PRN 5 Days 06/10/18 tablet hydrALAZINE [Apresoline] 50 mg PO TID 06/10/18 Acetaminophen [Tylenol Extra 1,000 mg PO Q8 06/11/18 Strength] Aspirin E.C. 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 Psychiatric History: Anxiety, Depression, - - Patient suffered from anxiety/ depression when her and was on Paxil but no longer takes this medication. 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 Denies: Sinus Congestion , Sinus Drainage Cardiovascular: Denies: Chest Pain, Palpitations Respiratory: Denies: Cough, Shortness of breath at rest, Sputum production Gastrointestinal: Denies: Abdominal Pain, Nausea, Vomiting Genitourinary: Denies: Dysuria Musculoskeletal: Denies: Joint Pain, Joint Tenderness Skin: Denies: Rash, Wounds Neurological: Denies: Numbness, Tingling, Focal weakness Psychiatric: Denies: Anxiety, Depression, Homicidal Ideations, Suicidal Ideations Hematologic/ Lymphatic: Denies: Easy Bruising, Easy Bleeding Patient Problems: Active and Suspected Problems (Last Updated 04/21/18 @ 08:01 by Roseanne Berry) Facial paresthesia (Acute) Migraine headache (Acute) - Physical Exam General: Alert, Oriented x3, Cooperative HEENT: Atraumatic, PERRLA, EOMI, Normocephalic Neck: Supple, No JVD, Negative Carotid Bruits Lungs: Clear to auscultation, Normal air movement Cardiovascular: Regular rate, No murmurs Abdomen: Bowel Sounds Present, Soft, Non Tender Extremities: No edema, Capillary Refill Less than 3 Seconds Skin: No rashes, No breakdown Musculoskeletal: No Tenderness to Palpation of Joints or Extremities Neurological: Cranial nerves II-XII grossly intact Psych/Mental Status: Normal Affect, Appropriate Vital Signs Temp Pulse Resp BP Pulse Ox 97.2 F L 84 22 H 169/87 H 95 06/11/18 15:26 06/12/18 04:45 06/11/18 15:26 06/12/18 04:45 06/11/18 15:26 Oxygen Delivery Method Room Air Weight: 121.1 kg Body Mass Index (BMI) 47.2 Intake and Output for Last 24 Hours 06/10/18 06/11/18 06/12/18 23:59 23:59 23:59 Intake Total 360 / 360 720 / 720 520 / 520 Balance 360 / 360 720 / 720 520 / 520 Assessment/Plan All Active Problems (Last Updated 04/21/18 @ 08:01 by Roseanne Berry) Facial paresthesia (Acute) Migraine headache (Acute) Chest pain (Resolved) Headache (Resolved) Hypertensive urgency (Resolved) Hypertensive urgency, malignant (Resolved) 72 year old female with below past medical history hospitalized for Hypertension requiring medication adjustment, headache thought to be complex migraine, lumbar spinal stenosis resulting in debility, admit to TCU for rehabilitation, strengthening, prior to discharge home alone. * Pain - Tylenol 1000MG Q8H, Oxycodone 5MG Q4H PRN severe pain * Muscle spasm - Baclofen 10MG TID. * Neuropathic pain - Gabapentin 400MG TID. * Hypertension - Metoprolol 50MG BID, Stop Hydralazine (headaches), HCTZ 25MG daily. Add Verapamil 240MG daily. * Sore mouth - Lidocaine 2% viscous 5ML Q8H PRN. * Cluster headache/Migraine headache - Verapamil 240MG daily, Depakote 500MG BID , Imitrex 100MG daily PRN headache. * GI prophylaxis - Lactobacillus 1 tablet BID. * Hypokalemia - K-Dur 10MEQ BID. * Lumbar spinal stenosis - Medrol Dosepak, Diclofenac 50MG BID with food, Dr. Morley performed epidural steroid injection today.
[2018-06-12 14:50] VITALS: BP 184/85; PULSE 78
[2018-06-12] MEDS: Acetaminophen 500 MG Tablet 1000 MG PO ×2 (14:50→21:51)
--- NOTE | 2018-06-12 15:06 | PCM.PN.RX ---
<LorimarissatylerJayant D - Last Filed: 06/12/18 15:06> Progress Note - Pharmacy Subjective: TCU Admission Objective: Allergies bee pollen Allergy (Verified 06/11/18 10:28) Swelling erythromycin base [Erythromycin Base] Allergy (Verified 06/11/18 10:28) Rash lisinopril Allergy (Verified 06/11/18 10:28) Swelling amlodipine Adverse Reaction (Verified 06/11/18 10:28) Swelling latex Adverse Reaction (Verified 06/11/18 10:28) Swelling Current Medications Generic Name Dose Route Start Last Admin Trade Name Freq PRN Reason Stop Dose Admin Acetaminophen 1,000 mg 06/10/18 22:00 06/12/18 14:50 Tylenol PO 1,000 mg Q8 RYILE Administration Aspirin 81 mg 06/11/18 08:00 06/11/18 18:49 Aspirin, Baby PO Not Given DAILY@0800 [facility] Baclofen 10 mg 06/10/18 22:00 06/12/18 14:50 Lioresal PO 10 mg TID [facility] Administration Diclofenac Sodium 50 mg 06/11/18 08:00 06/12/18 08:25 Voltaren PO 50 mg BIDCM [facility] Administration Divalproex Sodium 500 mg 06/12/18 15:15 Depakote PO 06/12/18 15:16 X1 ONE Divalproex Sodium 500 mg 06/12/18 17:00 Depakote PO BIDCM [facility] Enoxaparin Sodium 40 mg 06/11/18 06:00 06/11/18 14:05 Lovenox SC Not Given DAILY@0600 [facility] Gabapentin 400 mg 06/10/18 17:45 06/12/18 12:55 Neurontin PO 400 mg TIDCM RYLIE Administration Hydrochlorothiazide 25 mg 06/11/18 06:00 06/12/18 04:37 Hctz PO Not Given DAILY [facility] Lidocaine HCl 5 ml 06/11/18 17:13 Xylocaine Viscous PO Q8H PRN MOUTH SORES Methylprednisolone 4 mg 06/11/18 08:00 06/12/18 12:55 Medrol Dosepak PO 06/16/18 08:59 4 mg 0800,1200,1700 RYLIE Administration Taper Metoprolol Tartrate 100 mg 06/12/18 18:00 Lopressor (Beta Enrico) PO BID [facility] Nystatin 1 applic 06/10/18 22:00 06/12/18 04:38 Mycostatin Powder TOPICAL Not Given 0600,2200 [facility] Protocol Oxycodone HCl 5 mg 06/10/18 20:52 06/12/18 12:55 Oxyir PO 5 mg Q4H PRN PRN Administration SEVERE PAIN (6-10/10) Polyethylene Glycol 17 gm 06/11/18 06:00 06/12/18 04:38 Miralax PO Not Given DAILY [facility] Potassium Chloride 10 meq 06/10/18 18:00 06/12/18 04:37 K-Dur PO Not Given BID [facility] Senna/Docusate Sodium 2 tablet 06/11/18 06:00 06/12/18 04:38 Senokot-S, Kari-Colace PO Not Given BID [facility] Sumatriptan Succinate 6 mg 06/12/18 15:30 Imitrex SC 06/12/18 15:31 X1 ONE Sumatriptan Succinate 6 mg 06/12/18 14:58 Imitrex SC DAILY PRN PRN MIGRAINE SYMPTOMS Tuberculin PPD 5 tu 06/18/18 10:00 Tubersol, Aplisol, Ppd ID 06/18/18 10:01 X1 ONE Verapamil HCl 240 mg 06/12/18 14:56 Calan Sr PO 06/12/18 14:57 X1 ONE Verapamil HCl 240 mg 06/13/18 06:00 Calan Sr PO DAILY [facility] Problem List (Last Updated 04/21/18 @ 08:01 by Roseanne Berry) Facial paresthesia (Acute) Migraine headache (Acute) Lumbar spinal stenosis (Chronic) Cervical spinal stenosis (Chronic) Lumbar radiculopathy (Chronic) Neuropathy (Chronic) Restless leg syndrome (Chronic) Sleep apnea (Chronic) Morbid obesity (Chronic) Vital Signs Temp Pulse Resp BP Pulse Ox 98.4 F 78 18 184/85 H 96 06/12/18 14:48 06/12/18 14:50 06/12/18 14:48 06/12/18 14:50 06/12/18 14:48 Oxygen Delivery Method Room Air Weight: 121.1 kg Body Mass Index (BMI) 47.2 Sodium 143 mmol/L (136-145) 06/11/18 05:25 Potassium 4.5 mmol/L (3.5-5.1) 06/11/18 05:25 Chloride 100 mmol/L (98-107) 06/11/18 05:25 Carbon Dioxide 35.0 mmol/L (21.0-32.0) H 06/11/18 05:25 Anion Gap 8 (5-15) 06/11/18 05:25 BUN 17 mg/dL (7-18) 06/11/18 05:25 Creatinine 0.85 mg/dL (0.55-1.02) 06/11/18 05:25 Est GFR (MDRD) Af Amer 84 mL/min (>60) 06/11/18 05:25 Est GFR (MDRD) Non-Af 70 mL/min (>60) 06/11/18 05:25 BUN/Creatinine Ratio 20.0 RATIO (10-20) 06/11/18 05:25 Glucose 103 mg/dL (74-106) 06/11/18 05:25 Assessment/Plan: 1) Pain/Headaches APAP scheduled, baclofen, diclofenac, divalproex, gabapentin, lidocaine prn, methylprednisolone pack, oxycodone for severe pain, sumatriptan prn, verapamil. Continue to monitor daily pain scores, prn medication use. 2) HTN HCTZ, metoprolol. Continue to monitor BP/HR, renal function, electrolytes. 3) DVT PPx Enoxaparin daily. Continue to monitor s/s bleeding/clot. Psychotropic Medications: None Unnecessary Medications: None Bowel Regimen: 4) Senna/s, PEG, prn bisacodyl. Continue to monitor prn medication use, for constipation/diarrhea. Date of Note:: 06/12/18 - Provider Comments Provider responsibility: Provider responsible to enter orders to implement recommendations <Javier Mar Chi - Last Filed: 06/12/18 16:06> Progress Note - Pharmacy Subjective: [] Objective: Allergies bee pollen Allergy (Verified 06/11/18 10:28) Swelling erythromycin base [Erythromycin Base] Allergy (Verified 06/11/18 10:28) Rash lisinopril Allergy (Verified 06/11/18 10:28) Swelling amlodipine Adverse Reaction (Verified 06/11/18 10:28) Swelling latex Adverse Reaction (Verified 06/11/18 10:28) Swelling Current Medications Generic Name Dose Route Start Last Admin Trade Name Freq PRN Reason Stop Dose Admin Acetaminophen 1,000 mg 06/10/18 22:00 06/12/18 14:50 Tylenol PO 1,000 mg Q8 [facility] Administration Aspirin 81 mg 06/11/18 08:00 06/11/18 18:49 Aspirin, Baby PO Not Given DAILY@0800 [facility] Baclofen 10 mg 06/10/18 22:00 06/12/18 14:50 Lioresal PO 10 mg TID [facility] Administration Diclofenac Sodium 50 mg 06/11/18 08:00 06/12/18 08:25 Voltaren PO 50 mg BIDCM [facility] Administration Divalproex Sodium 500 mg 06/12/18 17:00 06/12/18 15:53 [facility] Enoxaparin Sodium 40 mg 06/11/18 06:00 06/11/18 14:05 Lovenox SC Not Given DAILY@0600 [facility] Gabapentin 400 mg 06/10/18 17:45 06/12/18 12:55 Neurontin PO 400 mg TIDCM [facility] Administration Hydrochlorothiazide 25 mg 06/11/18 06:00 06/12/18 04:37 Hctz PO Not Given DAILY [facility] Lidocaine HCl 5 ml 06/11/18 17:13 Xylocaine Viscous PO Q8H PRN MOUTH SORES Methylprednisolone 4 mg 06/11/18 08:00 06/12/18 12:55 Medrol Dosepak PO 06/16/18 08:59 4 mg 0800,1200,1700 [facility] Administration Taper Metoprolol Tartrate 100 mg 06/12/18 18:00 Lopressor (Beta Enrico) PO BID [facility] Nystatin 1 applic 06/10/18 22:00 06/12/18 04:38 Mycostatin Powder TOPICAL Not Given 0600,2200 [facility] Protocol Oxycodone HCl 5 mg 06/10/18 20:52 06/12/18 12:55 Oxyir PO 5 mg Q4H PRN PRN Administration SEVERE PAIN (6-10/10) Polyethylene Glycol 17 gm 06/11/18 06:00 06/12/18 04:38 Miralax PO Not Given DAILY [facility] Potassium Chloride 10 meq 06/10/18 18:00 06/12/18 04:37 K-Dur PO Not Given BID [facility] Senna/Docusate Sodium 2 tablet 06/11/18 06:00 06/12/18 04:38 Senokot-S, Kari-Colace PO Not Given BID [facility] Sumatriptan Succinate 6 mg 06/12/18 14:58 Imitrex SC DAILY PRN PRN MIGRAINE SYMPTOMS Tuberculin PPD 5 tu 06/18/18 10:00 Tubersol, Aplisol, Ppd ID 06/18/18 10:01 X1 ONE Verapamil HCl 240 mg 06/13/18 06:00 Calan Sr PO DAILY RYLIE Problem List (Last Updated 04/21/18 @ 08:01 by Roseanne eBrry) Facial paresthesia (Acute) Migraine headache (Acute) Lumbar spinal stenosis (Chronic) Cervical spinal stenosis (Chronic) Lumbar radiculopathy (Chronic) Neuropathy (Chronic) Restless leg syndrome (Chronic) Sleep apnea (Chronic) Morbid obesity (Chronic) Vital Signs Temp Pulse Resp BP Pulse Ox 98.4 F 78 18 184/85 H 96 06/12/18 14:48 06/12/18 14:50 06/12/18 14:48 06/12/18 14:50 06/12/18 14:48 Oxygen Delivery Method Room Air Weight: 121.1 kg Body Mass Index (BMI) 47.2 Sodium 143 mmol/L (136-145) 06/11/18 05:25 Potassium 4.5 mmol/L (3.5-5.1) 06/11/18 05:25 Chloride 100 mmol/L (98-107) 06/11/18 05:25 Carbon Dioxide 35.0 mmol/L (21.0-32.0) H 06/11/18 05:25 Anion Gap 8 (5-15) 06/11/18 05:25 BUN 17 mg/dL (7-18) 06/11/18 05:25 Creatinine 0.85 mg/dL (0.55-1.02) 06/11/18 05:25 Est GFR (MDRD) Af Amer 84 mL/min (>60) 06/11/18 05:25 Est GFR (MDRD) Non-Af 70 mL/min (>60) 06/11/18 05:25 BUN/Creatinine Ratio 20.0 RATIO (10-20) 06/11/18 05:25 Glucose 103 mg/dL (74-106) 06/11/18 05:25 Assessment/Plan: Psychotropic Medications: Unnecessary Medications: Bowel Regimen: - Provider Comments Provider responsibility: Provider responsible to enter orders to implement recommendations Provider Comments to Recommendations by Pharmacy: Agree
--- NOTE | 2018-06-12 15:11 | PHA.CONS_ITS ---
<LorimarissatylerJayant D - Last Filed: 06/12/18 15:06> Progress Note - Pharmacy Subjective: TCU Admission Objective: Allergies bee pollen Allergy (Verified 06/11/18 10:28) Swelling erythromycin base [Erythromycin Base] Allergy (Verified 06/11/18 10:28) Rash lisinopril Allergy (Verified 06/11/18 10:28) Swelling amlodipine Adverse Reaction (Verified 06/11/18 10:28) Swelling latex Adverse Reaction (Verified 06/11/18 10:28) Swelling Current Medications Generic Name Dose Route Start Last Admin Trade Name Freq PRN Reason Stop Dose Admin Acetaminophen 1,000 mg 06/10/18 22:00 06/12/18 14:50 Tylenol PO 1,000 mg Q8 RLYIE Administration Aspirin 81 mg 06/11/18 08:00 06/11/18 18:49 Aspirin, Baby PO Not Given DAILY@0800 [facility] Baclofen 10 mg 06/10/18 22:00 06/12/18 14:50 Lioresal PO 10 mg TID [facility] Administration Diclofenac Sodium 50 mg 06/11/18 08:00 06/12/18 08:25 Voltaren PO 50 mg BIDCM [facility] Administration Divalproex Sodium 500 mg 06/12/18 15:15 Depakote PO 06/12/18 15:16 X1 ONE Divalproex Sodium 500 mg 06/12/18 17:00 Depakote PO BIDCM [facility] Enoxaparin Sodium 40 mg 06/11/18 06:00 06/11/18 14:05 Lovenox SC Not Given DAILY@0600 [facility] Gabapentin 400 mg 06/10/18 17:45 06/12/18 12:55 Neurontin PO 400 mg TIDCM RYLIE Administration Hydrochlorothiazide 25 mg 06/11/18 06:00 06/12/18 04:37 Hctz PO Not Given DAILY [facility] Lidocaine HCl 5 ml 06/11/18 17:13 Xylocaine Viscous PO Q8H PRN MOUTH SORES Methylprednisolone 4 mg 06/11/18 08:00 06/12/18 12:55 Medrol Dosepak PO 06/16/18 08:59 4 mg 0800,1200,1700 RYLIE Administration Taper Metoprolol Tartrate 100 mg 06/12/18 18:00 Lopressor (Beta Enrico) PO BID [facility] Nystatin 1 applic 06/10/18 22:00 06/12/18 04:38 Mycostatin Powder TOPICAL Not Given 0600,2200 [facility] Protocol Oxycodone HCl 5 mg 06/10/18 20:52 06/12/18 12:55 Oxyir PO 5 mg Q4H PRN PRN Administration SEVERE PAIN (6-10/10) Polyethylene Glycol 17 gm 06/11/18 06:00 06/12/18 04:38 Miralax PO Not Given DAILY [facility] Potassium Chloride 10 meq 06/10/18 18:00 06/12/18 04:37 K-Dur PO Not Given BID [facility] Senna/Docusate Sodium 2 tablet 06/11/18 06:00 06/12/18 04:38 Senokot-S, Kari-Colace PO Not Given BID [facility] Sumatriptan Succinate 6 mg 06/12/18 15:30 Imitrex SC 06/12/18 15:31 X1 ONE Sumatriptan Succinate 6 mg 06/12/18 14:58 Imitrex SC DAILY PRN PRN MIGRAINE SYMPTOMS Tuberculin PPD 5 tu 06/18/18 10:00 Tubersol, Aplisol, Ppd ID 06/18/18 10:01 X1 ONE Verapamil HCl 240 mg 06/12/18 14:56 Calan Sr PO 06/12/18 14:57 X1 ONE Verapamil HCl 240 mg 06/13/18 06:00 Calan Sr PO DAILY [facility] Problem List (Last Updated 04/21/18 @ 08:01 by Roseanne Berry) Facial paresthesia (Acute) Migraine headache (Acute) Lumbar spinal stenosis (Chronic) Cervical spinal stenosis (Chronic) Lumbar radiculopathy (Chronic) Neuropathy (Chronic) Restless leg syndrome (Chronic) Sleep apnea (Chronic) Morbid obesity (Chronic) Vital Signs Temp Pulse Resp BP Pulse Ox 98.4 F 78 18 184/85 H 96 06/12/18 14:48 06/12/18 14:50 06/12/18 14:48 06/12/18 14:50 06/12/18 14:48 Oxygen Delivery Method Room Air Weight: 121.1 kg Body Mass Index (BMI) 47.2 Sodium 143 mmol/L (136-145) 06/11/18 05:25 Potassium 4.5 mmol/L (3.5-5.1) 06/11/18 05:25 Chloride 100 mmol/L (98-107) 06/11/18 05:25 Carbon Dioxide 35.0 mmol/L (21.0-32.0) H 06/11/18 05:25 Anion Gap 8 (5-15) 06/11/18 05:25 BUN 17 mg/dL (7-18) 06/11/18 05:25 Creatinine 0.85 mg/dL (0.55-1.02) 06/11/18 05:25 Est GFR (MDRD) Af Amer 84 mL/min (>60) 06/11/18 05:25 Est GFR (MDRD) Non-Af 70 mL/min (>60) 06/11/18 05:25 BUN/Creatinine Ratio 20.0 RATIO (10-20) 06/11/18 05:25 Glucose 103 mg/dL (74-106) 06/11/18 05:25 Assessment/Plan: 1) Pain/Headaches APAP scheduled, baclofen, diclofenac, divalproex, gabapentin, lidocaine prn, methylprednisolone pack, oxycodone for severe pain, sumatriptan prn, verapamil. Continue to monitor daily pain scores, prn medication use. 2) HTN HCTZ, metoprolol. Continue to monitor BP/HR, renal function, electrolytes. 3) DVT PPx Enoxaparin daily. Continue to monitor s/s bleeding/clot. Psychotropic Medications: None Unnecessary Medications: None Bowel Regimen: 4) Senna/s, PEG, prn bisacodyl. Continue to monitor prn medication use, for constipation/diarrhea. Date of Note:: 06/12/18 - Provider Comments Provider responsibility: Provider responsible to enter orders to implement recommendations <Javier Mar Chi - Last Filed: 06/12/18 16:06> Progress Note - Pharmacy Subjective: [] Objective: Allergies bee pollen Allergy (Verified 06/11/18 10:28) Swelling erythromycin base [Erythromycin Base] Allergy (Verified 06/11/18 10:28) Rash lisinopril Allergy (Verified 06/11/18 10:28) Swelling amlodipine Adverse Reaction (Verified 06/11/18 10:28) Swelling latex Adverse Reaction (Verified 06/11/18 10:28) Swelling Current Medications Generic Name Dose Route Start Last Admin Trade Name Freq PRN Reason Stop Dose Admin Acetaminophen 1,000 mg 06/10/18 22:00 06/12/18 14:50 Tylenol PO 1,000 mg Q8 [facility] Administration Aspirin 81 mg 06/11/18 08:00 06/11/18 18:49 Aspirin, Baby PO Not Given DAILY@0800 [facility] Baclofen 10 mg 06/10/18 22:00 06/12/18 14:50 Lioresal PO 10 mg TID [facility] Administration Diclofenac Sodium 50 mg 06/11/18 08:00 06/12/18 08:25 Voltaren PO 50 mg BIDCM [facility] Administration Divalproex Sodium 500 mg 06/12/18 17:00 06/12/18 15:53 [facility] Enoxaparin Sodium 40 mg 06/11/18 06:00 06/11/18 14:05 Lovenox SC Not Given DAILY@0600 [facility] Gabapentin 400 mg 06/10/18 17:45 06/12/18 12:55 Neurontin PO 400 mg TIDCM [facility] Administration Hydrochlorothiazide 25 mg 06/11/18 06:00 06/12/18 04:37 Hctz PO Not Given DAILY [facility] Lidocaine HCl 5 ml 06/11/18 17:13 Xylocaine Viscous PO Q8H PRN MOUTH SORES Methylprednisolone 4 mg 06/11/18 08:00 06/12/18 12:55 Medrol Dosepak PO 06/16/18 08:59 4 mg 0800,1200,1700 [facility] Administration Taper Metoprolol Tartrate 100 mg 06/12/18 18:00 Lopressor (Beta Enrico) PO BID [facility] Nystatin 1 applic 06/10/18 22:00 06/12/18 04:38 Mycostatin Powder TOPICAL Not Given 0600,2200 [facility] Protocol Oxycodone HCl 5 mg 06/10/18 20:52 06/12/18 12:55 Oxyir PO 5 mg Q4H PRN PRN Administration SEVERE PAIN (6-10/10) Polyethylene Glycol 17 gm 06/11/18 06:00 06/12/18 04:38 Miralax PO Not Given DAILY [facility] Potassium Chloride 10 meq 06/10/18 18:00 06/12/18 04:37 K-Dur PO Not Given BID [facility] Senna/Docusate Sodium 2 tablet 06/11/18 06:00 06/12/18 04:38 Senokot-S, Kari-Colace PO Not Given BID [facility] Sumatriptan Succinate 6 mg 06/12/18 14:58 Imitrex SC DAILY PRN PRN MIGRAINE SYMPTOMS Tuberculin PPD 5 tu 06/18/18 10:00 Tubersol, Aplisol, Ppd ID 06/18/18 10:01 X1 ONE Verapamil HCl 240 mg 06/13/18 06:00 Calan Sr PO DAILY [facility] Problem List (Last Updated 04/21/18 @ 08:01 by Roseanne Berry) Facial paresthesia (Acute) Migraine headache (Acute) Lumbar spinal stenosis (Chronic) Cervical spinal stenosis (Chronic) Lumbar radiculopathy (Chronic) Neuropathy (Chronic) Restless leg syndrome (Chronic) Sleep apnea (Chronic) Morbid obesity (Chronic) Vital Signs Temp Pulse Resp BP Pulse Ox 98.4 F 78 18 184/85 H 96 06/12/18 14:48 06/12/18 14:50 06/12/18 14:48 06/12/18 14:50 06/12/18 14:48 Oxygen Delivery Method Room Air Weight: 121.1 kg Body Mass Index (BMI) 47.2 Sodium 143 mmol/L (136-145) 06/11/18 05:25 Potassium 4.5 mmol/L (3.5-5.1) 06/11/18 05:25 Chloride 100 mmol/L (98-107) 06/11/18 05:25 Carbon Dioxide 35.0 mmol/L (21.0-32.0) H 06/11/18 05:25 Anion Gap 8 (5-15) 06/11/18 05:25 BUN 17 mg/dL (7-18) 06/11/18 05:25 Creatinine 0.85 mg/dL (0.55-1.02) 06/11/18 05:25 Est GFR (MDRD) Af Amer 84 mL/min (>60) 06/11/18 05:25 Est GFR (MDRD) Non-Af 70 mL/min (>60) 06/11/18 05:25 BUN/Creatinine Ratio 20.0 RATIO (10-20) 06/11/18 05:25 Glucose 103 mg/dL (74-106) 06/11/18 05:25 Assessment/Plan: Psychotropic Medications: Unnecessary Medications: Bowel Regimen: - Provider Comments Provider responsibility: Provider responsible to enter orders to implement recommendations Provider Comments to Recommendations by Pharmacy: Agree
[2018-06-12] MEDS: Divalproex Sodium 250 MG Tablet 500 MG PO (15:51)
[2018-06-12] MEDS: SUMAtriptan 6 MG/0.5 ML Vial SC (15:51)
[2018-06-12] MEDS: Verapamil SR 240 MG Tablet PO (15:52)
[2018-06-12 17:09] VITALS: BP 177/81; PULSE 78
[2018-06-12 17:14] VITALS: PULSE 78
[2018-06-12] MEDS: Metoprolol Tartrate 100 MG Tablet PO (17:14)
[2018-06-12] MEDS: Senna/Docusate Sodium 1 Tablet 2 TABLET PO (17:14)
[2018-06-12] MEDS: Nystatin Powder 15gm Bottle 1 APPLIC TOPICAL (21:51)
[2018-06-13] MEDS: Verapamil SR 240 MG Tablet PO (05:35)
[2018-06-13] MEDS: Enoxaparin 40 MG/0.4 ML Syringe SC (05:36)
[2018-06-13] MEDS: Baclofen 10 MG Tablet PO ×3 (05:36→22:12)
[2018-06-13] MEDS: hydroCHLOROthiazide 25 MG Tablet PO (05:36)
[2018-06-13] MEDS: Nystatin Powder 15gm Bottle 1 APPLIC TOPICAL ×2 (05:36→22:13)
[2018-06-13] MEDS: Senna/Docusate Sodium 1 Tablet 2 TABLET PO ×2 (05:37→17:13)
[2018-06-13] MEDS: Acetaminophen 500 MG Tablet 1000 MG PO ×3 (05:37→22:11)
[2018-06-13 05:38] VITALS: BP 146/76; PULSE 60
[2018-06-13] MEDS: Metoprolol Tartrate 100 MG Tablet PO ×2 (05:38→17:14)
[2018-06-13] MEDS: Aspirin 81 MG TAB.CHEW PO (08:46)
[2018-06-13] MEDS: MethylPREDNISolone DosePak 4 MG BOX PO ×4 (08:46→22:11)
[2018-06-13] MEDS: Gabapentin 400 MG Capsule PO ×3 (08:46→17:14)
[2018-06-13] MEDS: Divalproex Sodium 250 MG Tablet 500 MG PO ×2 (08:47→17:14)
[2018-06-13] MEDS: oxyCODONE 5 MG Tablet PO ×3 (08:53→22:10)
--- NOTE | 2018-06-13 11:57 | NURSING ---
PT WANTS TO THINK ABOUT THE PREVAR 13 BEFORE GETTING IT. REPORTED TO FRANCESCO VICENTE
[2018-06-13 13:20] VITALS: BP 144/63; PULSE 66
[2018-06-13 15:08] VITALS: PULSE 60; RESP 18; O2SAT 94
[2018-06-13 15:34] VITALS: BP 141/64; PULSE 64; RESP 20; TEMP 36.8; O2SAT 95
[2018-06-13 17:14] VITALS: BP 141/64; PULSE 64
[2018-06-13 22:14] VITALS: BP 121/54; PULSE 66
[2018-06-14] MEDS: Acetaminophen 500 MG Tablet 1000 MG PO ×3 (05:15→21:17)
[2018-06-14 05:16] VITALS: BP 146/76; PULSE 61
[2018-06-14] MEDS: Verapamil SR 240 MG Tablet PO (05:16)
[2018-06-14] MEDS: Metoprolol Tartrate 100 MG Tablet PO ×2 (05:16→18:28)
[2018-06-14] MEDS: Baclofen 10 MG Tablet PO ×3 (05:16→21:18)
[2018-06-14] MEDS: Senna/Docusate Sodium 1 Tablet 2 TABLET PO ×2 (05:18→18:28)
[2018-06-14] MEDS: hydroCHLOROthiazide 25 MG Tablet PO (05:18)
[2018-06-14] MEDS: Enoxaparin 40 MG/0.4 ML Syringe SC (05:18)
[2018-06-14] MEDS: oxyCODONE 5 MG Tablet PO ×3 (05:20→21:16)
[2018-06-14] MEDS: Nystatin Powder 15gm Bottle 1 APPLIC TOPICAL ×2 (05:22→21:19)
[2018-06-14] MEDS: Gabapentin 400 MG Capsule PO ×3 (08:12→18:28)
[2018-06-14] MEDS: Divalproex Sodium 250 MG Tablet 500 MG PO ×2 (08:13→18:28)
[2018-06-14] MEDS: Aspirin 81 MG TAB.CHEW PO (08:13)
[2018-06-14] MEDS: MethylPREDNISolone DosePak 4 MG BOX PO ×3 (08:14→21:17)
[2018-06-14 15:32] VITALS: BP 127/57; PULSE 60; RESP 16; TEMP 36.2; O2SAT 94
[2018-06-14 18:28] VITALS: BP 127/57; PULSE 60
[2018-06-15 05:33] VITALS: BP 168/71; PULSE 57
[2018-06-15] MEDS: oxyCODONE 5 MG Tablet PO ×2 (05:33→11:15)
[2018-06-15] MEDS: Metoprolol Tartrate 100 MG Tablet PO ×2 (05:33→17:09)
[2018-06-15] MEDS: Polyethylene Glycol 3350 17 GM PACKET PO (05:34)
[2018-06-15] MEDS: Enoxaparin 40 MG/0.4 ML Syringe SC (05:34)
[2018-06-15] MEDS: Acetaminophen 500 MG Tablet 1000 MG PO ×3 (05:34→21:11)
[2018-06-15] MEDS: Baclofen 10 MG Tablet PO ×3 (05:35→21:11)
[2018-06-15] MEDS: Senna/Docusate Sodium 1 Tablet 2 TABLET PO (05:35)
[2018-06-15] MEDS: Verapamil SR 240 MG Tablet PO (05:36)
[2018-06-15] MEDS: hydroCHLOROthiazide 25 MG Tablet PO (05:36)
[2018-06-15] MEDS: Nystatin Powder 15gm Bottle 1 APPLIC TOPICAL ×2 (05:39→21:16)
[2018-06-15] MEDS: Divalproex Sodium 250 MG Tablet 500 MG PO ×2 (08:11→17:09)
[2018-06-15] MEDS: Gabapentin 400 MG Capsule PO ×3 (08:11→17:09)
[2018-06-15] MEDS: Aspirin 81 MG TAB.CHEW PO (08:11)
[2018-06-15] MEDS: MethylPREDNISolone DosePak 4 MG BOX PO ×2 (08:12→21:14)
--- NOTE | 2018-06-15 14:20 | CPS ---
PT C/O BIPAP NOT WORKING RIGHT AND HUMIDIFIER RUNNING DRY FASTER THAN NORMAL. R.T. WAS CALLED TO CHECK MACHINE, R.T. COULDN'T FIND ANY OBVIOUS PROBLEM SO INFORMED RN TO CALL [facility] TO HAVE THEM COME CHECK THE MACHINE.
--- NOTE | 2018-06-15 14:27 | NURSING ---
pt feels like CPAP not working correctly, Using to much water and air is blowing in mouth more, settings may be wrong. states broke at home and started working again and has not been right since. [facility] notified, will be in to assess CPAP
[2018-06-15 15:34] VITALS: BP 138/59; PULSE 59; RESP 20; TEMP 36.9; O2SAT 95
[2018-06-15 17:09] VITALS: BP 138/59; PULSE 59
[2018-06-15] MEDS: traMADol 50 MG Tablet PO (21:14)
[2018-06-16 06:44] VITALS: BP 162/91; PULSE 62
[2018-06-16] MEDS: Metoprolol Tartrate 100 MG Tablet PO ×2 (06:44→17:17)
[2018-06-16] MEDS: Baclofen 10 MG Tablet PO ×3 (06:45→21:16)
[2018-06-16] MEDS: Verapamil SR 240 MG Tablet PO (06:45)
[2018-06-16] MEDS: hydroCHLOROthiazide 25 MG Tablet PO (06:45)
[2018-06-16] MEDS: Enoxaparin 40 MG/0.4 ML Syringe SC (06:46)
[2018-06-16] MEDS: Acetaminophen 500 MG Tablet 1000 MG PO ×3 (06:46→21:16)
[2018-06-16] MEDS: oxyCODONE 5 MG Tablet PO ×4 (06:50→21:17)
[2018-06-16] MEDS: Nystatin Powder 15gm Bottle 1 APPLIC TOPICAL ×2 (06:55→21:18)
[2018-06-16] MEDS: MethylPREDNISolone DosePak 4 MG BOX PO (08:32)
[2018-06-16] MEDS: Divalproex Sodium 250 MG Tablet 500 MG PO ×2 (08:33→17:18)
[2018-06-16] MEDS: Aspirin 81 MG TAB.CHEW PO (08:33)
[2018-06-16] MEDS: Gabapentin 400 MG Capsule PO ×3 (08:33→17:18)
[2018-06-16 10:00] VITALS: PULSE 80; RESP 18; O2SAT 98
--- NOTE | 2018-06-16 15:23 | MDS.RN ---
Pain interview for KATIE 06/17/18 completed.
[2018-06-16 16:00] VITALS: BP 149/78; PULSE 52; RESP 18; TEMP 36.9; O2SAT 95
[2018-06-16 17:17] VITALS: BP 149/78; PULSE 60
[2018-06-17 06:14] VITALS: BP 188/90; PULSE 60
[2018-06-17] MEDS: Metoprolol Tartrate 100 MG Tablet PO ×2 (06:14→17:36)
[2018-06-17] MEDS: Verapamil SR 240 MG Tablet PO (06:14)
[2018-06-17] MEDS: oxyCODONE 5 MG Tablet PO (06:14)
[2018-06-17] MEDS: hydroCHLOROthiazide 25 MG Tablet PO (06:14)
[2018-06-17] MEDS: Acetaminophen 500 MG Tablet 1000 MG PO ×3 (06:15→21:04)
[2018-06-17] MEDS: Baclofen 10 MG Tablet PO ×3 (06:15→21:04)
[2018-06-17] MEDS: Enoxaparin 40 MG/0.4 ML Syringe SC (06:19)
[2018-06-17] MEDS: Nystatin Powder 15gm Bottle 1 APPLIC TOPICAL ×2 (06:20→21:08)
[2018-06-17] MEDS: Aspirin 81 MG TAB.CHEW PO (08:57)
[2018-06-17] MEDS: Divalproex Sodium 250 MG Tablet 500 MG PO ×2 (08:57→17:36)
[2018-06-17] MEDS: Gabapentin 400 MG Capsule PO ×2 (08:57→17:36)
[2018-06-17] MEDS: traMADol 50 MG Tablet PO (09:01)
--- NOTE | 2018-06-17 09:10 | NURSING ---
PT REFUSED FLU SHOT. REPORTED TO FRANCESCO GRAF
--- NOTE | 2018-06-17 09:27 | CASEMGMT ---
Plan of care meeting held. Resident present as well as resident son, Josse. Resident plans to discharge to home alone at time of discharge. Resident is wanting to discharge to home but wanting to see what the surgeon has to say prior to making decision about when to return home. Resident sees the surgeon today. Plan is for social work to touch base with resident tomorrow morning to discharge discharge date/plan further. No discharge date set at this time. Resident to continue with further care and treatment on the Transitional Care Unit. Support given. Will continue to follow. Kalyani LAND, AFTERNOON BABYSITTER
--- NOTE | 2018-06-17 09:54 | NURSING ---
Pt left with for appointment.
--- NOTE | 2018-06-17 10:19 | CASEMGMT ---
Brief interview for mental status (BIMS) and resident mood interview (PHQ-9) completed on this day. BIMS score 08/06. PHQ-9 score 11/18
--- NOTE | 2018-06-17 15:48 | NURSING ---
Pt returned from appointment with Dr. Zamora. NNO.
[2018-06-17 15:59] VITALS: PULSE 67; RESP 18; O2SAT 97
[2018-06-17 16:00] VITALS: BP 148/66; PULSE 64; RESP 18; TEMP 36.1; O2SAT 94
[2018-06-17 17:36] VITALS: BP 148/66; PULSE 64
[2018-06-18] MEDS: Acetaminophen 500 MG Tablet 1000 MG PO ×2 (05:34→12:41)
[2018-06-18] MEDS: Baclofen 10 MG Tablet PO ×2 (05:34→12:40)
[2018-06-18 05:35] VITALS: BP 161/63; PULSE 62
[2018-06-18] MEDS: Metoprolol Tartrate 100 MG Tablet PO ×2 (05:35→17:05)
[2018-06-18] MEDS: hydroCHLOROthiazide 25 MG Tablet PO (05:35)
[2018-06-18] MEDS: Enoxaparin 40 MG/0.4 ML Syringe SC (05:35)
[2018-06-18] MEDS: Verapamil SR 240 MG Tablet PO (05:35)
[2018-06-18] MEDS: Nystatin Powder 15gm Bottle 1 APPLIC TOPICAL (05:40)
[2018-06-18 05:51] LABS: Absolute Lymphocyte Count 3.16 X10^3/ul (0.83-4.51); Absolute Neutrophil Count 4.2 X10^3/uL (2.0-7.7); Basophil# 0.01 X10^3/uL; Basophil% 0.1 % (0-1); Eosinophil# 0.17 X10^3/uL; Hematocrit 37.4 % (37-47); Hemoglobin 11.9 g/dl (12.0-15.0); Lymphocyte # 3.16 X10^3/ul (4.0); Lymphocyte % 37.8 % (19-41); Mean Corp Hgb Conc 31.8 g/gl (32-36); Mean Corpuscular Hgb 31.3 pg (27.0-32.0); Mean Corpuscular Volume 98.4 fL (81-99); Mean Platelet Vol. 10.1 fl (6.2-12.0); Monocyte# 0.74 X10^3/uL; Monocyte% 8.9 % (0-10); Neutrophil # 4.15 X10^3/uL (2.7-7.7); Neutrophil % 49.8 % (47-70); Platelet Count 194 K/mm3 (150-450); RBC Distribution Width CV 14.3 % (11.6-14.6); RBC Distribution Width SD 49.9 fl (35.1-43.9); White Blood Count 8.4 K/mm3 (4.4-11.0)
[2018-06-18 05:56] LABS: POSITIVE COUNT NO; POSITIVE DIFFERENTIAL NO; POSITIVE MORPHOLOGY NO
[2018-06-18 05:58] LABS: Anion Gap 7 (5-15); BUN 34 mg/dL (7-18); BUN/Creat Ratio 42.9 RATIO (10-20); Calcium,Total 8.7 mg/dL (8.5-10.1); Chloride 103 mmol/L (98-107); Creatinine, Serum 0.79 mg/dL (0.55-1.02); EST Glomerular Filtration Rate 75 mL/min (>60); Est Glom Filt Rate - Afr Amer 91 mL/min (>60); Estimated Creatinine Clearance 40.83 ml/min; Glucose 93 mg/dL (74-106); Potassium 5.3 mmol/L (3.5-5.1); Sodium Level 143 mmol/L (136-145)
[2018-06-18] MEDS: Aspirin 81 MG TAB.CHEW PO (08:51)
[2018-06-18] MEDS: Divalproex Sodium 250 MG Tablet 500 MG PO ×2 (08:51→17:04)
[2018-06-18] MEDS: Gabapentin 400 MG Capsule PO ×3 (08:52→17:04)
[2018-06-18 10:00] VITALS: PULSE 62; RESP 18; O2SAT 96
[2018-06-18] MEDS: Sodium Polystyrene Sulfonate 15 GM/60 ML UDC 30 GM PO (10:25)
--- NOTE | 2018-06-18 10:50 | CASEMGMT ---
Social Work Spoke with resident in room. Resident requesting for discharge date to be set for 06/18/18, spoke to staff/therapy, 06/18/18 is an agreeable date at this time. Resident plans to discharge to home alone with a home exercise program. Resident reporting to have all needed durable medical equipment already set up within the home. Resident family planning to provide transportation home for resident at time of discharge. Resident notifying family of discharge date and plan. Support given. Proposed discharge date: 06/18/18 PLAN: Discharge to home alone. Kalyani LAND, SEAMAN
--- NOTE | 2018-06-18 12:24 | DCINST_ITS ---
- Discharge Diagnoses Current Active Problems: Current Active and Chronic Problems (Last Updated 04/21/18 @ 08:01 by Roseanne Berry) Facial paresthesia (Acute) Migraine headache (Acute) Lumbar spinal stenosis (Chronic) Cervical spinal stenosis (Chronic) Lumbar radiculopathy (Chronic) Neuropathy (Chronic) Restless leg syndrome (Chronic) Sleep apnea (Chronic) Morbid obesity (Chronic) You will use the following diet at home:: No restrictions, Regular Your food should be the consistency of: Regular Your liquids should be the consistency of: Regular/Thin Discharge Activity: Return to Normal Activity, May Shower, Use Walker Weight Bearing Status: Weight bearing as tolerated Call your doctor if you observe: Fever of 101 or Higher, Inability to urinate, Inability to have a bowel movement, Shortness of breath, Chest pain, Uncontrolled pain Allergies/Adverse Reactions: Allergies bee pollen Allergy (Verified 06/11/18 10:28) Swelling erythromycin base [Erythromycin Base] Allergy (Verified 06/11/18 10:28) Rash lisinopril Allergy (Verified 06/11/18 10:28) Swelling amlodipine Adverse Reaction (Verified 06/11/18 10:28) Swelling latex Adverse Reaction (Verified 06/11/18 10:28) Swelling Medications to take at Discharge Aspirin [Aspirin, Baby] 81 mg PO DAILY@0800 06/07/18 Baclofen [Lioresal] 10 mg PO BID 06/07/18 L.acidoph,Paracasei, B.lactis [Probiotic] 1 each PO BID 06/07/18 Metoprolol Tartrate 50 mg PO BID 06/07/18 Potassium Chloride [K-Dur] 10 meq PO BID 06/07/18 Gabapentin [Neurontin] 400 mg PO TIDCM 06/10/18 Hydrochlorothiazide [Hctz] 25 mg PO DAILY 06/10/18 Acetaminophen [Tylenol] 1,000 mg PO Q8 06/11/18 Aspirin E.C. [Ecotrin] 81 mg PO DAILY@0800 06/11/18 Acetaminophen [Tylenol] 1,000 mg PO Q8 tablet 06/18/18 Lidocaine 2% Viscous [Xylocaine Viscous] 5 ml PO Q8H PRN udc 06/18/18 Nystatin Powder [Mycostatin Powder] 1 applic TOPICAL 0600,2200 bottle 06/18/18 Primary Care Physician: Javier Mar Chi, MD [Primary Care Provider] - Please follow up with your Primary Care Physician in: 1 week. Test Results: Test results from this visit will be discussed in further detail at your follow- up appointment, if applicable. Please Follow Up With: Mu Schaffer MD Proposed Discharge Date: 06/18/18
--- NOTE | 2018-06-18 12:25 | PCM.DC.SUM ---
Discharge Date and Diagnosis - Problem List Patient Problems: Active and Suspected Problems (Last Updated 04/21/18 @ 08:01 by Roseanne Berry) Facial paresthesia (Acute) Migraine headache (Acute) Date of Admission: 06/10/18 Date of Discharge: 06/18/18 - Primary Discharge Diagnosis Active and Suspected Problems (Last Updated 04/21/18 @ 08:01 by Roseanne Berry) Facial paresthesia (Acute) Migraine headache (Acute) - Secondary Discharge Diagnosis Chronic Problems (Last Updated 04/21/18 @ 08:01 by Roseanne Berry) Osteoarthritis (Chronic) CHRISTIANA (obstructive sleep apnea) (Chronic) GERD (gastroesophageal reflux disease) (Chronic) History of migraine (Chronic) Lumbar spinal stenosis (Chronic) Cervical spinal stenosis (Chronic) Lumbar radiculopathy (Chronic) Neuropathy (Chronic) Restless leg syndrome (Chronic) Sleep apnea (Chronic) Morbid obesity (Chronic) Hypertension (Chronic) Morbid obesity with BMI of 40.0-44.9, adult (Chronic) Hospital Course and Treatment Imaging Results: 06/12/18 12:49 Diet: Cardiac/Low Cholesterol Is pt able to select menu?: Yes Labs (Last 48 Hours) 06/18/18 06/18/18 05:30 05:30 WBC 8.4 RBC 3.80 L Hgb 11.9 L Hct 37.4 MCV 98.4 MCH 31.3 MCHC 31.8 L RDW 14.3 RDW Differential 49.9 H Plt Count 194 MPV 10.1 Immature Gran % (Auto) 1.400 H Neut % (Auto) 49.8 Lymph % (Auto) 37.8 Pike % (Auto) 8.9 Eos % (Auto) 2.0 Baso % (Auto) 0.1 Absolute Neuts (auto) 4.2 Absolute Lymphs (auto) 3.16 Total Counted Not Reportable Sodium 143 Potassium 5.3 H Chloride 103 Carbon Dioxide 33.0 H Anion Gap 7 BUN 34 H Creatinine 0.79 Estim Creat Clear Calc 40.83 Est GFR (MDRD) Af Amer 91 Est GFR (MDRD) Non-Af 75 BUN/Creatinine Ratio 42.9 H Glucose 93 Calcium 8.7 Operations: None Procedures: None Summary of Care Provided: The patient is a 72 year old Female with below past medical history hospitalized for Hypertension requiring medication adjustment, headache thought to be complex migraine, lumbar spinal stenosis resulting in debility, admit to TCU for rehabilitation, strengthening, prior to discharge home alone. Discharge home alone with daughter, no further therapy necessary. Discharge Diet: No Restrictions Discharge Activity: Return to Normal Activity, May Shower, Use Walker Weight Bearing Status: Weight bearing as tolerated Call your doctor if you observe: Fever of 101 or Higher, Inability to urinate, Inability to have a bowel movement, Shortness of breath, Chest pain, Uncontrolled pain Home Medications: Medications to take at Discharge Aspirin [Aspirin, Baby] 81 mg PO DAILY@0800 06/07/18 Baclofen [Lioresal] 10 mg PO BID 06/07/18 L.acidoph,Paracasei, B.lactis [Probiotic] 1 each PO BID 06/07/18 Metoprolol Tartrate 50 mg PO BID 06/07/18 Potassium Chloride [K-Dur] 10 meq PO BID 06/07/18 Gabapentin [Neurontin] 400 mg PO TIDCM 06/10/18 Hydrochlorothiazide [Hctz] 25 mg PO DAILY 06/10/18 Acetaminophen [Tylenol] 1,000 mg PO Q8 06/11/18 Aspirin E.C. [Ecotrin] 81 mg PO DAILY@0800 06/11/18 Acetaminophen [Tylenol] 1,000 mg PO Q8 tablet 06/18/18 Lidocaine 2% Viscous [Xylocaine Viscous] 5 ml PO Q8H PRN udc 06/18/18 Nystatin Powder [Mycostatin Powder] 1 applic TOPICAL 0600,2200 bottle 06/18/18 Primary Care Physician: Javier Mar Chi, MD [Primary Care Provider] - Please follow up with your Primary Care Physician in: 1 week. Please Follow Up With: Mu Schaffer MD Disposition: Home Minutes spent on discharge:: 30 Patient Condition:: Stable Medical Necessity - Tobacco Use Smoking Status: Never smoker Tobacco Use: Non-smoker Meaningful Use Info Meaningful Use Diagnoses (Choose all that apply): None applicable
--- NOTE | 2018-06-18 15:15 | CASEMGMT ---
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 Kalyani LAND, TRUCK DRIVER SUPERVISOR
[2018-06-18 15:36] VITALS: BP 153/65; PULSE 62; RESP 16; TEMP 36.4; O2SAT 98
[2018-06-18 17:05] VITALS: BP 153/65; PULSE 62
[2018-06-18 18:04] VITALS: BP 153/65; PULSE 62; RESP 18; TEMP 36.4; O2SAT 98
== END 2018-06-18 17:55 | disposition home or self-care (01) | DRG 948 ==
PROVIDERS: Admitting Provider Family Medicine Geriatric Medicine; Family Provider Family Medicine Geriatric Medicine; PCP Family Medicine Geriatric Medicine; Visit Provider Family Medicine Geriatric Medicine
DX: R53.81 Other malaise (principal); Z68.42 Body mass index [BMI] 45.0-49.9, adult; I10 Essential (primary) hypertension; M48.061 Spinal stenosis, lumbar region without neurogenic claudication; G43.109 Migraine with aura, not intractable, without status migrainosus; E87.6 Hypokalemia; G47.33 Obstructive sleep apnea (adult) (pediatric); K21.9 Gastro-esophageal reflux disease without esophagitis; E66.01 Morbid (severe) obesity due to excess calories; Z71.3 Dietary counseling and surveillance; G25.81 Restless legs syndrome; G62.9 Polyneuropathy, unspecified; M19.90 Unspecified osteoarthritis, unspecified site; Z79.899 Other long term (current) drug therapy; Z90.5 Acquired absence of kidney
CPT/HCPCS: 36415; 80048; 85025; 97110; 97116; 97163; 97166; 97530; 97535; 97802; J3030; J3490

== ENCOUNTER → 2018-06-12 16:30 | Day surgery (SDC) | payer MEDICARE, OTHER, SELFPAY ==
[2018-06-12 10:46] VITALS: BP 175/76; PULSE 74; RESP 16; TEMP 36.3; O2SAT 100; BMI 44.8
--- NOTE | 2018-06-12 11:00 | RAD_ITS ---
STUDY: X-RAY - LUMBAR SPINE REASON FOR EXAM: Female, 72 years old. Epidural block TECHNIQUE: Single C-arm view(s) of the lumbar spine were obtained. 5.4 seconds fluoroscopy time COMPARISON: None FINDINGS: Single C-arm view shows a needle positioned at the L5-S1 space with a small amount of contrast within the thecal sac. Correlate with procedure note. Electronically Signed: Prakash Mckeon MD at 11:25 EDT , Service support , RAD/Spine 1 View Any Level
[2018-06-12] MEDS: Triamcinolone Acetonide 40 MG/ML Vial (11:10)
[2018-06-12 11:28] VITALS: BP 142/65; BP 175/76; PULSE 79; RESP 18; TEMP 37.4; O2SAT 99
[2018-06-12 11:35] VITALS: BP 160/72; BP 175/76; PULSE 73; RESP 16; O2SAT 99
[2018-06-12 11:40] VITALS: BP 155/69; BP 175/76; PULSE 69; RESP 16; O2SAT 97
[2018-06-12 11:44] VITALS: BP 140/70; BP 175/76; PULSE 68; RESP 16; TEMP 37.4; O2SAT 97
== END ==
PROVIDERS: Family Provider Family Medicine Geriatric Medicine; PCP Family Medicine Geriatric Medicine; Visit Provider Anesthesiology Pain Medicine
PROC: 3E0S3BZ Introduction of Anesthetic Agent into Epidural Space, Percutaneous Approach (ICD-10-PCS; CPT 62322; principal; 2018-06-12 16:30)
DX: M48.061 Spinal stenosis, lumbar region without neurogenic claudication (principal); M54.16 Radiculopathy, lumbar region; M48.02 Spinal stenosis, cervical region; M19.90 Unspecified osteoarthritis, unspecified site; K21.9 Gastro-esophageal reflux disease without esophagitis; I10 Essential (primary) hypertension; G47.33 Obstructive sleep apnea (adult) (pediatric); G25.81 Restless legs syndrome; G62.9 Polyneuropathy, unspecified; G43.909 Migraine, unspecified, not intractable, without status migrainosus; E66.01 Morbid (severe) obesity due to excess calories; Z68.41 Body mass index [BMI] 40.0-44.9, adult; Z90.5 Acquired absence of kidney; Z79.82 Long term (current) use of aspirin; Z79.899 Other long term (current) drug therapy
CPT/HCPCS: 62323; 64483; 72020; J7120; J3490

== ENCOUNTER 2018-08-01 13:01 | Emergency (ER) | payer MEDICARE, OTHER, SELFPAY ==
[2018-08-01] VITALS (12 sets, daily range): BP systolic 94–133; BP diastolic 47–93; PULSE 97–118; RESP 16–32; O2SAT 96–100
--- NOTE | 2018-08-01 13:18 | CT_ITS ---
STUDY: CTA OF THE BRAIN REASON FOR EXAM: Female, 72 years old. History of CVA. RADIATION DOSAGE (If Supplied By Facility): CTDIvol = ( 17.09 ) mGy, DLP = ( 884.37 ) mGycm TECHNIQUE: CT angiography was performed with a multi-detector CT scanner. Data acquisition was obtained from the skull base through the vertex following intravenous administration of ml of . MIP images were reconstructed from the axial data set. Post-processing of the angiographic images was performed, with multiplanar reformation and 3D reconstruction. Individualized dose optimization techniques were used for this CT. COMPARISON: None. FINDINGS: Normal bilateral petrous carotid arteries. Normal right cavernous carotid artery with a normal supraclinoid bifurcation. Normal left cavernous carotid artery with a normal supraclinoid bifurcation. Normal right A1 segments of the anterior cerebral artery. Normal left A1 segments of the anterior cerebral artery. Normal intact anterior communicating artery (ACOM). Normal bilateral A2 segments of the anterior cerebral arteries. Normal right M1 and M2 segments of the middle cerebral arteries, with a normal M1 bifurcation. Normal left M1 and M2 segments of the middle cerebral arteries, with a normal M1 bifurcation. Normal right posterior communicating artery (PCOM). The left posterior community artery is not definitely identified. Normal bilateral vertebral arteries. Normal basilar artery with a normal basilar bifurcation. The visualized bilateral superior cerebellar (SCA) arteries are normal. There is no demonstrated definite aneurysm of the [place] of [place] within the scope and limitation of this examination. The reconstruction images are suboptimal. There is no demonstrated abnormality of the visualized brain. IMPRESSION: No demonstrated aneurysm or hemodynamically significant stenosis of the [place] of [place]. N.B. : The above information has been verbally conveyed by Jay Arias MD to America Rubio on 08/01/2018 14:01:52 (ET). Electronically Signed: Jay Arias MD at 13:59 EST Tel , Service support , STUDY: CTA NECK WITH CONTRAST REASON FOR EXAM: Female, 72 years old. History of stroke. RADIATION DOSAGE (If Supplied By Facility): CTDIvol = ( 17.09 ) mGy, DLP = ( 884.37 ) mGycm TECHNIQUE: CT angiography with multi-detector data acquisition was performed from the aortic arch to the skull base following intravenous administration of 100 ml of Isovue 370 contrast. MIP images were reconstructed from the axial data set. Post-processing of the angiographic images was performed, with multiplanar reformation and 3D reconstruction. Individualized dose optimization techniques were used for this CT. COMPARISON: None. FINDINGS: AORTIC ARCH: Normal visualized aortic arch. Normal origins of the brachiocephalic, left common carotid, and left subclavian arteries. RIGHT CAROTID ARTERIES: There is atherosclerotic tortuous elongation of the right common carotid artery. There is mild atherosclerotic plaque formation without significant narrowing of the right carotid bulb. Normal origin of the right internal carotid (ICA) artery without a hemodynamically significant stenosis. Normal visualized cervical portion of the right internal carotid artery. Normal origin of the right external carotid artery (ECA). LEFT CAROTID ARTERIES: Normal left common carotid artery (CCA). Normal left common carotid bulb. Normal origin of the left internal carotid (ICA) artery without a hemodynamically significant stenosis. Normal visualized cervical portion of the left internal carotid artery. Normal origin of the left external carotid artery (ECA). VERTEBRAL ARTERIES: Normal bilateral vertebral arteries. CT/CTA Head W/WO Contrast IMPRESSION: No hemodynamically significant stenosis of the common carotid arteries or the vertebral arteries bilaterally. N.B. : The above information has been verbally conveyed by Jay Arias MD to America Rubio on 08/01/2018 14:01:52 (ET). Electronically Signed: Jay Arias MD at 14:02 EST Tel , Service support ,
--- NOTE | 2018-08-01 13:18 | RAD_ITS ---
STUDY: X-RAY CHEST REASON FOR EXAM: Female, 72 years old. Shortness of breath. TECHNIQUE: Single AP portable view of the chest. COMPARISON: November 19, 2017 FINDINGS: The lungs are clear and expanded. There is no demonstrated pleural abnormality. There is mild cardiac enlargement. Normal mediastinum and favian. Normal visualized pulmonary arteries. Normal visualized aortic arch and descending thoracic aorta. There are diffuse degenerative changes of the visualized thoracic spine. Normal visualized ribs, clavicles, and shoulders. There is no demonstrated abnormality of the visualized soft tissue structures of the upper abdomen. RAD/Chest 1 View IMPRESSION: Degenerative changes, as described above. No demonstrated acute cardiopulmonary process. Electronically Signed: Rosales Peralta MD at 15:11 EST , Service support ,
--- NOTE | 2018-08-01 13:18 | EKG12_ITS ---
Test Reason : Blood Pressure : / mmHG Vent. Rate : 113 BPM Atrial Rate : 113 BPM P-R Int : 136 ms QRS Dur : 094 ms QT Int : 316 ms P-R-T Axes : 029 008 033 degrees QTc Int : 433 ms Sinus tachycardia Otherwise normal ECG Confirmed by NANETTE ROMERO, ROQUE ([id number]), editor managing director JULISA JEWELL ([id number]) on 08/04/2018 3:55:08 PM Referred By: Confirmed By:ROQUE FITZPATRICK MD
--- NOTE | 2018-08-01 13:18 | CT_ITS ---
STUDY: CTA OF THE BRAIN REASON FOR EXAM: Female, 72 years old. History of CVA. RADIATION DOSAGE (If Supplied By Facility): CTDIvol = ( 17.09 ) mGy, DLP = ( 884.37 ) mGycm TECHNIQUE: CT angiography was performed with a multi-detector CT scanner. Data acquisition was obtained from the skull base through the vertex following intravenous administration of ml of . MIP images were reconstructed from the axial data set. Post-processing of the angiographic images was performed, with multiplanar reformation and 3D reconstruction. Individualized dose optimization techniques were used for this CT. COMPARISON: None. FINDINGS: Normal bilateral petrous carotid arteries. Normal right cavernous carotid artery with a normal supraclinoid bifurcation. Normal left cavernous carotid artery with a normal supraclinoid bifurcation. Normal right A1 segments of the anterior cerebral artery. Normal left A1 segments of the anterior cerebral artery. Normal intact anterior communicating artery (ACOM). Normal bilateral A2 segments of the anterior cerebral arteries. Normal right M1 and M2 segments of the middle cerebral arteries, with a normal M1 bifurcation. Normal left M1 and M2 segments of the middle cerebral arteries, with a normal M1 bifurcation. Normal right posterior communicating artery (PCOM). The left posterior community artery is not definitely identified. Normal bilateral vertebral arteries. Normal basilar artery with a normal basilar bifurcation. The visualized bilateral superior cerebellar (SCA) arteries are normal. There is no demonstrated definite aneurysm of the [place] of [place] within the scope and limitation of this examination. The reconstruction images are suboptimal. There is no demonstrated abnormality of the visualized brain. IMPRESSION: No demonstrated aneurysm or hemodynamically significant stenosis of the [place] of [place]. N.B. : The above information has been verbally conveyed by Jay Arias MD to America Rubio on 08/01/2018 14:01:52 (ET). Electronically Signed: Jay Arias MD at 13:59 EST Tel , Service support , STUDY: CTA NECK WITH CONTRAST REASON FOR EXAM: Female, 72 years old. History of stroke. RADIATION DOSAGE (If Supplied By Facility): CTDIvol = ( 17.09 ) mGy, DLP = ( 884.37 ) mGycm TECHNIQUE: CT angiography with multi-detector data acquisition was performed from the aortic arch to the skull base following intravenous administration of 100 ml of Isovue 370 contrast. MIP images were reconstructed from the axial data set. Post-processing of the angiographic images was performed, with multiplanar reformation and 3D reconstruction. Individualized dose optimization techniques were used for this CT. COMPARISON: None. FINDINGS: AORTIC ARCH: Normal visualized aortic arch. Normal origins of the brachiocephalic, left common carotid, and left subclavian arteries. RIGHT CAROTID ARTERIES: There is atherosclerotic tortuous elongation of the right common carotid artery. There is mild atherosclerotic plaque formation without significant narrowing of the right carotid bulb. Normal origin of the right internal carotid (ICA) artery without a hemodynamically significant stenosis. Normal visualized cervical portion of the right internal carotid artery. Normal origin of the right external carotid artery (ECA). LEFT CAROTID ARTERIES: Normal left common carotid artery (CCA). Normal left common carotid bulb. Normal origin of the left internal carotid (ICA) artery without a hemodynamically significant stenosis. Normal visualized cervical portion of the left internal carotid artery. Normal origin of the left external carotid artery (ECA). VERTEBRAL ARTERIES: Normal bilateral vertebral arteries. CT/CTA Neck W/WO Contrast IMPRESSION: No hemodynamically significant stenosis of the common carotid arteries or the vertebral arteries bilaterally. N.B. : The above information has been verbally conveyed by Jay Arias MD to America Rubio on 08/01/2018 14:01:52 (ET). Electronically Signed: Jay Arias MD at 14:02 EST Tel , Service support ,
--- NOTE | 2018-08-01 13:19 | CT_ITS ---
STUDY: CT BRAIN WITHOUT CONTRAST REASON FOR EXAM: Female, 72 years old. Stroke. RADIATION DOSAGE (If Supplied By Facility): CTDIvol = ( 44.99 ) mGy, DLP = ( 863.60 ) mGycm TECHNIQUE: Transaxial CT imaging of the brain was performed without administration of intravenous contrast material. Individualized dose optimization techniques were used for this CT. COMPARISON: June 07, 2018 CT. June 08, 2018 MRI. FINDINGS:Normal soft tissue structures. Normal calvarium. Normal size ventricles and extra-axial spaces for the patient's age. There are areas of decreased attenuation within the white matter tracts of the supratentorial brain, consistent with microvascular disease changes. Normal basal ganglia and thalami. Normal brainstem. Normal cerebellum. There is no intracranial hemorrhage. There are no findings of an acute ischemic infarction. Mild mucosal thickening of the left maxillary sinus. CT/Brain/Head without Contrast IMPRESSION: Chronic involutional changes of the brain. Results discussed with Dr Rubio . N.B. : The above information has been verbally conveyed by Rosales Peralta MD to Dr. Joanne MD, on 08/01/2018 13:37:16 (ET). Electronically Signed: Rosales Peralta MD at 13:36 EST , Service support ,
--- NOTE | 2018-08-01 13:21 | ED.VISSUMM ---
- ER Visit Summary Date of Service: 08/01/18 Chief Complaint: [] Decreased level of consciousness at nursing center History of Present Illness: The patient is a 72 F [] history of hypertension, recent lumbar back surgery at [place] that required straightening the back per family, putting in screws, and cleaning out arthritis , the patient did well postop she was sent to the local nursing facility for rehab she is been doing well there for the last 2 weeks, today she woke apparently was to her baseline normal per nursing staff and then around 1230 or so she developed LOC while in the wheelchair where she would not respond to people she would not talk she seemed to have weakness in all 4 of her extremities, the senior care personnel per paramedics took a blood pressure that was high and then they contacted EMS and EMS his arrival her blood pressure was actually 85 over palp her heart rate was 110 and they brought her to the emergency department her stroke protocol, stroke protocol team was followed see those protocol orders Physical Examination: [] Arrival her blood pressure is 106 over about 80 she opens her eyes her breathing is easy her airways intact there is no distress she does not answer to verbal or pain she holds both upper extremities up in the air for the appropriate time, she will not move her lower extremities her lungs sound clear the heart tones are unremarkable the abdomen is soft there is a back incision that was not seen at this time due to the fact she was taken immediately to CT for stroke protocol orders, she did blink to confrontation, her NIH stroke scale is as above and is difficult to determine as we cannot check for ataxia sensory her best language and is approximately [address] we did examine her back the back incision does have some drainage clear fluid slight odor there is no obvious crepitance or subcu air cultures were obtained and she will be started on antibiotics Test Results: [] Emergency Department Course and Treatment: [] Given all the above she will taken to CAT scan for immediate CTA head neck other screening labs it is unclear why she had a hypotension per the family she is currently on antibiotic for local skin infection related to the incision she is not been on any sedatives or any other medications CTA head neck stroke protocol for radiology negative for stroke or obstruction, her troponin returned at 0.07 creatinine almost 3 white count 14,000, UTI, please see the rest of her studies which she did receive IV fluids aggressively, she received IV antibiotics potassium was 2.7 and supplemented, we spoke with the hospitalist they came down to assess her given her recent back surgery and the potential that the surgical site could be contributing to her condition with infection they recommend that she be transferred to [facility] for further management we spoke with the facilities transfer line accepted the patient in transfer Dr. fowler, she will be seen in the emergency department consultation the orthopedics and other specialist as clinically warranted Reevaluation she is awake she alert she is moving all 4 extremities she indicates she is feeling better she is thirsty she wants to drink she was given ice chips her and the family were informed of all the above and agreed to transfer Treatment Plan: [] Disposition: [] Transfer to [facility] for medical and orthopedic evaluation Impression: [] Change in mental status, postoperative infection, urinary tract infection, acute renal injury, elevated troponin This note was generated with [employer] dictation software. It may contain incorrect words, spelling, and punctuation that were not noted in review of the chart prior to signing ED Disposition - Plan for ED Patient: Chief Complaint: Neuro S/Sx Referrals: Javier Mar Chi, MD [COURTESY STAFF PHYSICIAN] -
--- NOTE | 2018-08-01 13:26 | ED.DCSUM_ITS ---
- ER Visit Summary Date of Service: 08/01/18 Chief Complaint: [] Decreased level of consciousness at nursing center History of Present Illness: The patient is a 72 F [] history of hypertension, recent lumbar back surgery at [place] that required straightening the back per family, putting in screws, and cleaning out arthritis , the patient did well postop she was sent to the local nursing facility for rehab she is been doing well there for the last 2 weeks, today she woke apparently was to her baseline normal per nursing staff and then around 1230 or so she developed LOC while in the wheelchair where she would not respond to people she would not talk she seemed to have weakness in all 4 of her extremities, the [facility] personnel per paramedics took a blood pressure that was high and then they contacted EMS and EMS his arrival her blood pressure was actually 85 over palp her heart rate was 110 and they brought her to the emergency department her stroke protocol, stroke protocol team was followed see those protocol orders Physical Examination: [] Arrival her blood pressure is 106 over about 80 she opens her eyes her breathing is easy her airways intact there is no distress she does not answer to verbal or pain she holds both upper extremities up in the air for the appropriate time, she will not move her lower extremities her lungs sound clear the heart tones are unremarkable the abdomen is soft there is a back incision that was not seen at this time due to the fact she was taken immediately to CT for stroke protocol orders, she did blink to confrontation, her NIH stroke scale is as above and is difficult to determine as we cannot check for ataxia sensory her best language and is approximately [address] we did examine her back the back incision does have some drainage clear fluid slight odor there is no obvious crepitance or subcu air cultures were obtained and she will be started on antibiotics Test Results: [] Emergency Department Course and Treatment: [] Given all the above she will taken to CAT scan for immediate CTA head neck other screening labs it is unclear why she had a hypotension per the family she is currently on antibiotic for local skin infection related to the incision she is not been on any sedatives or any other medications CTA head neck stroke protocol for radiology negative for stroke or obstruction, her troponin returned at 0.07 creatinine almost 3 white count 14,000, UTI, please see the rest of her studies which she did receive IV fluids aggressively, she received IV antibiotics potassium was 2.7 and supplemented, we spoke with the hospitalist they came down to assess her given her recent back surgery and the potential that the surgical site could be contributing to her condition with infection they recommend that she be transferred to [facility] for further management we spoke with the facilities transfer line accepted the patient in transfer Dr. fowler, she will be seen in the emergency department consultation the orthopedics and other specialist as clinically warranted Reevaluation she is awake she alert she is moving all 4 extremities she indicates she is feeling better she is thirsty she wants to drink she was given ice chips her and the family were informed of all the above and agreed to transfer Treatment Plan: [] Disposition: [] Transfer to [facility] for medical and orthopedic evaluation Impression: [] Change in mental status, postoperative infection, urinary tract infection, acute renal injury, elevated troponin This note was generated with [employer] dictation software. It may contain incorrect words, spelling, and punctuation that were not noted in review of the chart prior to signing ED Disposition - Plan for ED Patient: Chief Complaint: Neuro S/Sx Referrals: Javier Mar Chi, MD [COURTESY STAFF PHYSICIAN] -
[2018-08-01] MEDS: 0.9% Normal Saline 1,000 ML 100 ML IV (13:43)
[2018-08-01 13:58] LABS: International Normalized Ratio 1.6; Prothrombin Time (Protime)PT. 19.2 SECONDS (11.7-14.9)
[2018-08-01 13:59] LABS: Absolute Lymphocyte Count 0.64 X10^3/ul (0.83-4.51); Absolute Neutrophil Count 12.8 X10^3/uL (2.0-7.7); Basophil# 0.01 X10^3/uL; Basophil% 0.1 % (0-1); Differential Indicated SCAN CRITERIA MET; Eosinophil# 0.19 X10^3/uL; Eosinophils% 1.4 % (0-5); Hematocrit 32.6 % (37-47); Hemoglobin 10.2 g/dl (12.0-15.0); Lymphocyte # 0.64 X10^3/ul (4.0); Lymphocyte % 4.6 % (19-41); Mean Corp Hgb Conc 31.3 g/gl (32-36); Mean Corpuscular Hgb 31.7 pg (27.0-32.0); Mean Corpuscular Volume 101.2 fL (81-99); Mean Platelet Vol. 9.7 fl (6.2-12.0); Monocyte# 0.29 X10^3/uL; Monocyte% 2.1 % (0-10); Neutrophil # 12.76 X10^3/uL (2.7-7.7); Neutrophil % 91.4 % (47-70); POSITIVE COUNT NO; POSITIVE DIFFERENTIAL NO; POSITIVE MORPHOLOGY YES; Partial Thromboplast Time 34.5 Seconds (24.1-36.2); Platelet Count 127 K/mm3 (150-450); RBC Distribution Width CV 14.9 % (11.6-14.6); RBC Distribution Width SD 54.4 fl (35.1-43.9); Red Blood Count 3.22 M/mm3 (4.2-5.4)
[2018-08-01 14:01] LABS: Bedside Glucose 122 mg/dL (70-110)
--- NOTE | 2018-08-01 14:18 | RAD_ITS ---
STUDY: X-RAY - LUMBAR SPINE REASON FOR EXAM: Female, 72 years old. Fall. Recent surgery. TECHNIQUE: 3 view(s) of the lumbar spine were obtained. COMPARISON: 03/02/2018 FINDINGS: There is 6 mm anterolisthesis of L4 on L5 which was also present previously. Interpedicular screws are seen bilaterally at L4, L5, and S1. Bilateral posterior rods are seen. There has been laminectomy from L2-S1. No acute fractures. Moderate to severe multilevel degenerative changes. RAD/Lumbar Spine 2 or 3 Views IMPRESSION: Recent surgical changes and posterior fixations at L4, L5, and S1. No definite acute complications. Electronically Signed: Prakash Mckeon MD at 16:13 EST , Service support ,
[2018-08-01 14:21] LABS: Anion Gap 11 (5-15); BUN 36 mg/dL (7-18); BUN/Creat Ratio 12.8 RATIO (10-20); Calcium,Total 7.9 mg/dL (8.5-10.1); Chloride 100 mmol/L (98-107); Creatinine, Serum 2.81 mg/dL (0.55-1.02); EST Glomerular Filtration Rate 17 mL/min (>60); Est Glom Filt Rate - Afr Amer 21 mL/min (>60); Estimated Creatinine Clearance 33.88 ml/min; Glucose 125 mg/dL (74-106); Potassium 2.7 mmol/L (3.5-5.1); Sodium Level 137 mmol/L (136-145)
[2018-08-01 14:54] LABS: Bacteria 0 SEEN /hpf (None Seen); Mucous, Urine 0 SEEN /hpf (<or=2+); Red Blood Cells-Urine 0 SEEN /hpf (0-5); Squamous Epithelial Cells - UA 0 SEEN /hpf (5-10)
[2018-08-01 14:58] LABS: Color, Urine Yellow (Yellow); Glucose, Dipstick Normal (Normal); Ketone-Dipstick 5 mg/dl (Negative); Leukocyte Esterase-Dipstick 25 /ul (Negative); Nitrite-Dipstick Negative (Negative); Occult Blood-Urine 25 /ul (Negative); Protein-Dipstick 30 mg/dl (Negative); Urine Clarity Sl. Cloudy (Clear); Urine Urobilinogen 1 mg/dl (Normal)
[2018-08-01 15:01] LABS: Urine Bilirubin Dipstick 1 mg/dL (Negative)
[2018-08-01 15:06] LABS: White Blood Cells 10-25 SEEN /hpf (0-5)
--- NOTE | 2018-08-01 16:05 | ED.RN ---
dr campbelld to speak with familsharon at bedside.
[2018-08-01] MEDS: 0.9% Normal Saline 1,000 ML 999 ML IV (16:43)
--- NOTE | 2018-08-01 16:46 | ED.RN ---
dr mccullough held potassium due to unable to get second iv line on 2 attempts and atb infusing. pt being transfered.
== END 2018-08-01 17:25 | disposition short-term general hospital (02) ==
PROVIDERS: Emergency Provider Emergency Medicine
DX: R41.82 Altered mental status, unspecified (principal); T81.41XA Infection following a procedure, superficial incisional surgical site, initial encounter; L08.9 Local infection of the skin and subcutaneous tissue, unspecified; N39.0 Urinary tract infection, site not specified; N17.9 Acute kidney failure, unspecified; R79.89 Other specified abnormal findings of blood chemistry; I10 Essential (primary) hypertension; Z79.82 Long term (current) use of aspirin; Z79.899 Other long term (current) drug therapy
CPT/HCPCS: 70450; 70496; 70498; 71045; 72100; 80048; 81001; 82962; 84484; 85025; 85610; 85730; 87070; 87077; 87086; 87186; 87205; 93005; 96365; 96367; 99285; J7030; J7040; J7050; P9612; Q9967; A4216

== ENCOUNTER 2018-11-24 10:11 | Outpatient (RCR) | payer OTHER, MEDICARE, SELFPAY ==
[2018-11-24 10:31] VITALS: BP 142/67; PULSE 71; RESP 18; TEMP 37.2; BMI 44.2
== END 2018-12-20 23:59 ==
LOC: WC 10:11
PROVIDERS: Visit Provider Surgery
DX: Z09 Encounter for follow-up examination after completed treatment for conditions other than malignant neoplasm (principal)

== ENCOUNTER 2019-04-28 23:36 | Emergency (ER) | payer MEDICARE, OTHER, SELFPAY ==
[2019-04-28 23:37] VITALS: BP 167/82; PULSE 73; RESP 16; TEMP 36.7; O2SAT 95; BMI 42.0
--- NOTE | 2019-04-29 00:15 | CT_ITS ---
STUDY: CT BRAIN WITHOUT CONTRAST REASON FOR EXAM: Female, 73 years old. Headache with elevated blood pressure. History of hypertension. RADIATION DOSAGE (If Supplied By Facility): CTDIvol = ( 44.99 ) mGy, DLP = ( 849.54 ) mGycm TECHNIQUE: Transaxial CT imaging of the brain was performed without administration of intravenous contrast material. Individualized dose optimization techniques were used for this CT. COMPARISON: CT scan brain 08/01/2018 FINDINGS: Normal soft tissue structures. Normal calvarium. Normal size ventricles and extra-axial spaces for the patient's age. There are areas of decreased attenuation within the white matter tracts of the supratentorial brain, consistent with microvascular disease changes. Normal basal ganglia and thalami. Normal brainstem. Normal cerebellum. There is atherosclerotic calcification of the cavernous carotid arteries. There is no intracranial hemorrhage. There are no findings of an acute ischemic infarction. There is mucoperiosteal inflammatory disease of the left maxillary and right ethmoid sinuses consistent with mild chronic sinusitis. There is no evidence for acute sinusitis. CT/Brain/Head without Contrast IMPRESSION: Chronic involutional changes of the brain. No demonstrated acute intracranial process. Electronically Signed: Soren Cramer MD at 2:07 EDT , Service support ,
--- NOTE | 2019-04-29 00:16 | ED.VIS.GEN ---
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 Patient on Coreg 25 mg twice daily, hydralazine 25 mg 3 times daily, Lasix 40 mg daily. No missed doses. Reports saw gynecology office today treated for UTI. No abdominal pain or nausea vomiting. No back pain. No fevers. States increasing headache symptoms from 6 PM, blood pressure checks at home systolic 213/92 at the highest, and 9 PM it was 197/90, she took extra dose of hydralazine. Call on-call nursing who spoke with her PCP, sent her to the ED. No chest pains or shortness of breath. No falls or head injuries. Tylenol taken at 6 PM with no relief. Complains of photophobia. 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 Smoking Status: Never smoker - Family History Paternal Family History: Family History (Last Reviewed 06/07/18 @ 15:46 by FAISAL Kumar) Mother Hypertension Family History: Reports: No pertinent history Maternal Family History: Family History (Last Reviewed 06/07/18 @ 15:46 by FAISAL Kumar) Mother Hypertension Family History: Reports: Hypertension Review of Systems General: Denies: Chills, Fever, Sweats Eyes: Denies: Visual changes - bilaterally, Diplopia ENT: Denies: Rhinorrhea, Sore throat Cardiovascular: Denies: Chest pain, Palpitations Respiratory: Denies: Dyspnea, Cough, Dyspnea on exertion Gastrointestinal: Denies: Abdominal pain, Nausea, Vomiting, Diarrhea, Melena, Hematochezia Genitourinary: Denies: Dysuria, Hematuria, Frequency Musculoskeletal: Denies: Back pain, Extremity Pain Skin: Denies: Rash, Wounds Neurological: Reports: Headache. Denies: Weakness, Numbness Physical Exam Vital Signs/Narrative: Vital Signs Temp Pulse Resp BP Pulse Ox 04/28/19 23:37 98.0 F 73 16 167/82 H 95 Inital Vital Signs reviewed: Yes General: Well nourished, Well developed, No Acute Distress Head: Normocephalic, Atraumatic Eyes: Perrl, EOMI ENT: Moist mucous membranes, No rhinorrhea Neck: Supple, Nontender, - - No meningismus Cardiovascular: Regular rate, Regular rhythm, No murmurs Respiratory: No distress, CTA bilaterally, Chest nontender Abdomen: Soft, Nontender, Nondistended, Normal bowel sounds Back: Nontender, Normal Inspection Extremities: Nontender, No edema Skin: Normal color, No rash Neurological: Alert, Oriented x3, Cranial nerves II-XII grossly intact, Normal Strength, Normal Sensation Psychological: Normal affect, Normal Mood Diagnostic/Tx/Re-eval Abnormal Lab Results 04/29/19 04/29/19 00:45 00:45 WBC 9.2 RBC 4.32 Hgb 12.7 Hct 40.0 MCV 92.6 MCH 29.4 MCHC 31.8 L RDW Std Deviation 48.2 H RDW Coeff of [place] 14.2 Plt Count 195 MPV 9.9 Immature Gran % (Auto) 0.300 Neut % (Auto) 50.3 Lymph % (Auto) 38.3 [place] % (Auto) 8.4 Eos % (Auto) 2.5 Baso % (Auto) 0.2 Absolute Neuts (auto) 4.6 Absolute Lymphs (auto) 3.54 Nucleated RBC % 0 Sodium 144 Potassium 3.3 L Chloride 111 H Carbon Dioxide 29.0 Anion Gap 4 L BUN 10 Creatinine 0.76 Estim Creat Clear Calc 40.21 Est GFR (MDRD) Af Amer 96 Est GFR (MDRD) Non-Af 79 BUN/Creatinine Ratio 13.2 Glucose 105 Calcium 9.5 Clinical Impression(s) from Imaging Studies Brain CT 04/29/19 00:15 IMPRESSION: Chronic involutional changes of the brain. No demonstrated acute intracranial process. Electronically Signed: Soren Cramer MD at 2:07 EDT , Service support , - Medical Decision Making Patient elevated blood pressure improving in triage. However reported systolic blood pressure of 213 at home with headache symptoms. There is no focal deficits. Basic labs normal. CT head obtained which was also negative. Treated Reglan and Benadryl with improvement headache symptoms. In the ED her blood pressure is trending up systolic 190s over 80s with good consistency. She is currently being treated for UTI discussed possibly stress from her UTI. She had a normal white count. She is on antibiotics. She is compliant with her medications. Discussed with patient and daughter in the room, will have patient take total 50 mg of hydralazine if her blood pressure is above systolic 180 otherwise we will continue her 25 mg. She will keep a log of her blood pressure follow-up with her PCP. Signs and symptoms discussed return otherwise follow-up. All questions answered. ED Disposition - Plan for ED Patient: Disposition: Home or Assisted Living Diagnosis: Accelerated hypertension, Cephalgia Instructions: HYPERTENSION, Established Referrals: Care Physician,No Primary [NON-STAFF] - Ever Kilgore MD [Primary Care Provider] - 5-7 Days Additional Instructions: Check your blood pressure prior to taking your hydralazine. If systolic blood pressure (top number) above 180, take 2 tabs, total 50 mg of your hydralazine, if less than 180, continue with 25 mg. Take your antibiotics as prescribed for your UTI. Follow-up with your doctor for reevaluation and medication adjustments as needed. Your CBC and BMP were normal. Your CT head was negative for acute findings.
[2019-04-29] MEDS: DiphenhydrAMINE 50 MG/ML Syringe 12.5 MG IV (00:43)
[2019-04-29] MEDS: Metoclopramide 10 MG/2 ML Vial 5 MG IV (00:45)
[2019-04-29 00:52] VITALS: BP 198/76; PULSE 69; RESP 14; O2SAT 98
[2019-04-29 00:54] LABS: Absolute Lymphocyte Count 3.54 X10^3/uL (0.83-4.51); Absolute Neutrophil Count 4.6 X10^3/uL (2.0-7.7); Basophil# 0.02 X10^3/uL; Basophil% 0.2 % (0-1); Eosinophil# 0.23 X10^3/uL; Eosinophils% 2.5 % (0-5); Hemoglobin 12.7 g/dL (12.0-15.0); Lymphocyte # 3.54 X10^3/ul (4.0); Lymphocyte % 38.3 % (19-41); Mean Corp Hgb Conc 31.8 g/dL (32-36); Mean Corpuscular Hgb 29.4 pg (27.0-32.0); Mean Corpuscular Volume 92.6 fL (81-99); Mean Platelet Vol. 9.9 fl (6.2-12.0); Monocyte# 0.78 X10^3/uL; Monocyte% 8.4 % (0-10); NRBC Flagged by Analyzer 0 % (0-5); Neutrophil # 4.64 X10^3/uL (2.7-7.7); Neutrophil % 50.3 % (47-70); Platelet Count 195 K/mm3 (150-450); RBC Distribution Width CV 14.2 % (11.6-14.6); RBC Distribution Width SD 48.2 fl (35.1-43.9); Red Blood Count 4.32 M/mm3 (4.2-5.4); White Blood Count 9.2 K/mm3 (4.4-11.0)
[2019-04-29 01:05] LABS: Anion Gap 4 (5-15); BUN 10 mg/dL (7-18); BUN/Creat Ratio 13.2 RATIO (10-20); Calcium,Total 9.5 mg/dL (8.5-10.1); Chloride 111 mmol/L (98-107); Creatinine, Serum 0.76 mg/dL (0.55-1.02); EST Glomerular Filtration Rate 79 mL/min (>60); Est Glom Filt Rate - Afr Amer 96 mL/min (>60); Estimated Creatinine Clearance 40.21 ml/min; Glucose 105 mg/dL (74-106); Potassium 3.3 mmol/L (3.5-5.1); Sodium Level 144 mmol/L (136-145)
--- NOTE | 2019-04-29 01:14 | ED.RN ---
NOTIFIED DR. LANDAVERDE OF , NO NEW ORDERS GIVEN AT THIS TIME.
[2019-04-29 01:38] VITALS: BP 193/87
[2019-04-29 02:31] VITALS: BP 198/87; PULSE 61; RESP 20; TEMP 36.7; O2SAT 97
== END 2019-04-29 02:46 | disposition home or self-care (01) ==
PROVIDERS: Emergency Provider Emergency Medicine; Family Provider Family Medicine; PCP Family Medicine
DX: I10 Essential (primary) hypertension (principal); R51 Headache; N39.0 Urinary tract infection, site not specified
CPT/HCPCS: 70450; 80048; 85025; 96361; 96374; 96375; 99285; J7030

== ENCOUNTER 2020-08-13 08:19 | Observation (INO) | payer MEDICARE, OTHER, SELFPAY ==
[2020-08-13] VITALS (13 sets, daily range): BP systolic 112–188; BP diastolic 52–82; PULSE 70–79; RESP 15–22; TEMP 36.9–37.5; O2SAT 93–99; BMI 45.4; BMI 42.1; BMI 42.2
--- NOTE | 2020-08-13 08:28 | EKG12_ITS ---
Test Reason : AM EKG Blood Pressure : / mmHG Vent. Rate : 057 BPM Atrial Rate : 057 BPM P-R Int : 190 ms QRS Dur : 094 ms QT Int : 456 ms P-R-T Axes : 059 011 016 degrees QTc Int : 443 ms Sinus bradycardia Otherwise normal ECG When compared with ECG of 13-AUG-2020 11:14, MANUAL COMPARISON REQUIRED, DATA IS UNCONFIRMED Confirmed by NANETTE ROMERO, ROQUE ([id number]), publishing editor TIMA WICK ([id number]) on 08/15/2020 9:33:31 AM Referred By: ZEINAB Confirmed By:ROQUE FITZPATRICK MD
--- NOTE | 2020-08-13 08:29 | ED.VIS.GEN ---
History of Present Illness Chief Complaint: Chest Pain Informant: Patient Onset: Weeks - Worse today Timing: Waxes and wanes Current Severity: Moderate Maximum Severity: Moderate Narrative: Patient presents with left-sided chest pain. She states is been waxing and waning for several weeks but woke her from sleep at 430 this morning and has been worse today than previous. She initially thought it was in the chest wall from leaning on her walker to ambulate. She states she only feels short of breath when the pain gets severe. She does describe the pain as sharp and stabbing. 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 She denies significant cardiac history. Patient's daughter did recently test positive for Covid. Patient was tested last week and was negative. She denies fever or cough. - Past Medical History (1) GERD (gastroesophageal reflux disease) Status: Chronic (2) History of migraine Status: Chronic (3) Hypertension Status: Chronic (4) CHRISTIANA (obstructive sleep apnea) Status: Chronic (5) Restless leg syndrome Status: Chronic Past Medical History - Allergies and Home Meds Allergies/Adverse Reactions: Allergies erythromycin base [Erythromycin Base] Allergy (Verified 08/13/20 08:33) Rash lisinopril Allergy (Verified 08/13/20 08:33) Swelling amlodipine Adverse Reaction (Verified 08/13/20 08:33) Swelling latex Adverse Reaction (Verified 08/13/20 08:33) Swelling WASP Allergy (Uncoded 08/13/20 08:33) Other Primary Care Physician: Ever Kilgore MD [Primary Care Provider] - Surgical History: hysterectomy - Bilateral oophorectomy with hyster 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 Lives: Alone Smoking Status: Never smoker - Family History Paternal Family History: Family History (Last Reviewed 06/07/18 @ 15:46 by Elida Juarez NP, FOOD AND BEVERAGE COORDINATOR-C) Mother Hypertension Family History: Reports: No pertinent history Maternal Family History: Family History (Last Reviewed 06/07/18 @ 15:46 by Elida Juarez NP, FOOD AND BEVERAGE COORDINATOR-C) Mother Hypertension Family History: Reports: Hypertension Review of Systems General: Reports: Chills. Denies: Fever Eyes: Denies: Visual changes - bilaterally ENT: Denies: Bilateral ear pain Cardiovascular: Reports: Chest pain Respiratory: Reports: Dyspnea. Denies: Cough Gastrointestinal: Denies: Abdominal pain, Nausea, Vomiting, Diarrhea Genitourinary: Denies: Dysuria Musculoskeletal: Denies: Swelling, Extremity Pain Skin: Denies: Rash Neurological: Denies: Headache Hematologic: Denies: Easy bruising, Easy bleeding Allergy: Denies: Uticaria Physical Exam Vital Signs/Narrative: Vital Signs Temp Pulse Resp BP Pulse Ox 08/13/20 08:20 99.4 F H 79 22 H 188/82 H 97 Inital Vital Signs reviewed: Yes General: Well nourished, Well developed Head: Normocephalic ENT: Moist mucous membranes Neck: Supple Cardiovascular: Regular rate, Regular rhythm Respiratory: No distress, CTA bilaterally, Chest tenderness - Mild chest tenderness on the left sternal border. Abdomen: Soft, Nontender Extremities: Nontender Skin: Normal color Neurological: Alert, Oriented x3 Psychological: Normal affect Diagnostic/Tx/Re-eval Chest X-Ray - ED: 1 View, Read by ED Physician, Normal, Heart, Lungs, Mediastinum Impressions Chest X-Ray 08/13/20 08:31 IMPRESSION: Normal x-ray examination of the chest. Electronically Signed: Sammy Argueta DO at 8:48 EST Tel , Service support , Chest CTA 08/13/20 09:00 IMPRESSION: Normal CTA chest examination, without a demonstrated pulmonary embolism or arterial dissection. Lungs are clear. Electronically Signed: Sammy Argueta DO at 9:32 EST Tel , Service support , 08/13/20 08:31 Chest 1 View (Portable) [RAD] Stat 08/13/20 09:00 CTA Chest W/WO Contrast [CT] Stat Laboratory Results 08/13/20 08/13/20 08/13/20 08:25 08:25 08:25 WBC 5.5 RBC 4.31 Hgb 13.2 Hct 42.1 MCV 97.7 MCH 30.6 MCHC 31.4 L RDW Std Deviation 46.7 H RDW Coeff of [place] 13.2 Plt Count 155 MPV 9.6 Immature Gran % (Auto) 0.500 Neut % (Auto) 58.9 Lymph % (Auto) 30.3 [place] % (Auto) 7.5 Eos % (Auto) 2.4 Baso % (Auto) 0.4 Absolute Neuts (auto) 3.2 Absolute Lymphs (auto) 1.66 Nucleated RBC % 0 D-Dimer Quant (PE/DVT) 2.53 H* Sodium 142 Potassium 3.8 Chloride 106 Carbon Dioxide 30.0 Anion Gap 6 BUN 14 Creatinine 0.83 Estim Creat Clear Calc 47.70 Est GFR (MDRD) Af Amer 86 Est GFR (MDRD) Non-Af 71 BUN/Creatinine Ratio 16.9 Glucose 103 Calcium 9.1 Troponin I < 0.015 - EKG Initial EKG Interpretation: Sinus Rhythm - Sinus at 79 with no acute ischemia. - Medical Decision Making Patient was given aspirin along with 25 mcg of fentanyl on arrival. She was given her normal morning medications. Repeat blood pressure is 122/80. On repeat evaluation patient continues to have intermittent pain. I did discuss with her hospital observation for cycling of cardiac enzymes and a possible stress test if needed. Patient is comfortable with this plan. I will speak with the hospitalist. ED Disposition - Plan for ED Patient: Disposition: Acute Care Hospital [facility] Diagnosis: Chest pain Referrals: Ever Kilgore MD [Primary Care Provider] -
--- NOTE | 2020-08-13 08:31 | RAD_ITS ---
STUDY: X-RAY CHEST REASON FOR EXAM: Female, 74 years old. PT C/O CP XWEEKS. WORSE TODAY. PAIN WOKE HER UP AT 0430. SHARP PAIN IN LEFT CHEST TECHNIQUE: Single AP portable view of the chest. COMPARISON: 08/01/2018 FINDINGS: The lungs are clear and expanded. There is no demonstrated pleural abnormality. Normal size heart. Normal mediastinum and favian. Normal visualized pulmonary arteries. Normal visualized aortic arch and descending thoracic aorta. Normal visualized thoracic spine. Normal visualized ribs, clavicles, and shoulders. There is no demonstrated abnormality of the visualized soft tissue structures of the upper abdomen. RAD/Chest 1 View (Portable) IMPRESSION: Normal x-ray examination of the chest. Electronically Signed: Sammy Argueta DO at 8:48 EST Tel , Service support ,
[2020-08-13] MEDS: Aspirin 81 MG TAB.CHEW 324 MG PO (08:33)
[2020-08-13] MEDS: fentaNYL 100 MCG/2 ML Ampul 25 MCG IV (08:34)
[2020-08-13 08:37] LABS: Absolute Lymphocyte Count 1.66 X10^3/uL (0.83-4.51); Absolute Neutrophil Count 3.2 X10^3/uL (2.0-7.7); Basophil# 0.02 X10^3/uL; Basophil% 0.4 % (0-1); Eosinophil# 0.13 X10^3/uL; Eosinophils% 2.4 % (0-5); Hematocrit 42.1 % (37-47); Hemoglobin 13.2 g/dL (12.0-15.0); Lymphocyte # 1.66 X10^3/ul (4.0); Lymphocyte % 30.3 % (19-41); Mean Corp Hgb Conc 31.4 g/dL (32-36); Mean Corpuscular Hgb 30.6 pg (27.0-32.0); Mean Corpuscular Volume 97.7 fL (81-99); Mean Platelet Vol. 9.6 fl (6.2-12.0); Monocyte# 0.41 X10^3/uL; Monocyte% 7.5 % (0-10); NRBC Flagged by Analyzer 0 % (0-5); Neutrophil # 3.22 X10^3/uL (2.7-7.7); Neutrophil % 58.9 % (47-70); Platelet Count 155 K/mm3 (150-450); RBC Distribution Width CV 13.2 % (11.6-14.6); RBC Distribution Width SD 46.7 fl (35.1-43.9); Red Blood Count 4.31 M/mm3 (4.2-5.4); White Blood Count 5.5 K/mm3 (4.4-11.0)
[2020-08-13 08:58] LABS: Anion Gap 6 (5-15); BUN 14 mg/dL (7-18); BUN/Creat Ratio 16.9 RATIO (10-20); Calcium,Total 9.1 mg/dL (8.5-10.1); Chloride 106 mmol/L (98-107); Creatinine, Serum 0.83 mg/dL (0.55-1.02); EST Glomerular Filtration Rate 71 mL/min (>60); Est Glom Filt Rate - Afr Amer 86 mL/min (>60); Glucose 103 mg/dL (74-106); Potassium 3.8 mmol/L (3.5-5.1); Sodium Level 142 mmol/L (136-145)
[2020-08-13 09:00] LABS: D-Dimer Quantitative (DVT/PE) 2.53 FEU/ug/m (0.27-0.49)
--- NOTE | 2020-08-13 09:00 | CT_ITS ---
STUDY: CTA CHEST REASON FOR EXAM: Female, 74 years old. CP X WEEKS, ?PE, SURG-PARTIAL NEPHRECTOMY, NEISHA/BSO RADIATION DOSAGE (If Supplied By Facility): CTDIvol = ( 12.49 ) mGy, DLP = ( 482.99 ) mGycm TECHNIQUE: The examination was performed with the intravenous administration of IV 100mL [id number]-[id number]. Post-processing of the angiographic images was performed, with multiplanar reformation and 3D reconstruction. Individualized dose optimization techniques were used for this CT. COMPARISON: Chest CT dated 06/13/2012 FINDINGS: Normal enhancement of the main pulmonary artery and right and left pulmonary arteries. Normal enhancement of the bilateral peripheral pulmonary arteries. There is no demonstrated pulmonary embolism. Normal thoracic aorta and visualized great vessels. There is no demonstrated aortic dissection. Stable mild cardiomegaly. Normal pericardium. Stable small mediastinal lymph nodes as compared to the exam from 2011. Normal hilar regions. Normal visualized trachea and bronchi. The lungs are well expanded. Normal pulmonary parenchyma. Normal pleura. Calcified right lower lobe granuloma Normal chest wall structures. Normal osseous structures. Normal visualized upper abdomen. Stable calcified splenic granulomas CT/CTA Chest W/WO Contrast IMPRESSION: Normal CTA chest examination, without a demonstrated pulmonary embolism or arterial dissection. Lungs are clear. Electronically Signed: Sammy Argueta DO at 9:32 EST Tel , Service support ,
[2020-08-13] MEDS: Gabapentin 300 MG Capsule PO ×2 (09:15→21:19)
[2020-08-13] MEDS: Levothyroxine 50 MCG Tablet PO (09:15)
[2020-08-13] MEDS: hydrALAZINE 50 MG Tablet PO (09:15)
[2020-08-13] MEDS: Carvedilol 25 MG Tablet PO ×2 (09:15→21:18)
--- NOTE | 2020-08-13 11:23 | EKG12_ITS ---
Test Reason : Blood Pressure : / mmHG Vent. Rate : 068 BPM Atrial Rate : 068 BPM P-R Int : 146 ms QRS Dur : 096 ms QT Int : 424 ms P-R-T Axes : 039 009 031 degrees QTc Int : 450 ms Normal sinus rhythm Normal ECG When compared with ECG of 01-AUG-2018 13:06, Vent. rate has decreased BY 45 BPM Confirmed by NANETTE ROMERO, ROQUE ([id number]), editor continuity and script TIMA WICK ([id number]) on 08/15/2020 9:34:42 AM Referred By: QUENTIN Confirmed By:ROQUE FITZPATRICK MD
[2020-08-13] MEDS: Nitroglycerin (INPATIENT USE) 0.4 MG TAB.SUBL SUBLINGUAL (13:47)
[2020-08-13] MEDS: Mag Hydrox/Al Hydrox/Simeth 30 ML UDC PO (14:49)
--- NOTE | 2020-08-13 16:12 | PCM.HP.STD ---
<Elida Juarez MOLD DESIGN ENGINEER - Last Filed: 08/13/20 16:50> Problem List (1) Osteoarthritis Status: Chronic (2) CHRISTIANA (obstructive sleep apnea) Status: Chronic (3) GERD (gastroesophageal reflux disease) Status: Chronic (4) History of migraine Status: Chronic (5) Facial paresthesia Status: Resolved (6) Migraine headache Status: Chronic (7) Lumbar spinal stenosis Status: Chronic (8) Cervical spinal stenosis Status: Chronic (9) Lumbar radiculopathy Status: Chronic (10) Neuropathy Status: Chronic (11) Restless leg syndrome Status: Chronic (12) Sleep apnea Status: Chronic (13) Morbid obesity Status: Chronic (14) Chest pain Status: Acute (15) Hypertension Status: Chronic (16) Morbid obesity with BMI of 40.0-44.9, adult Status: Chronic History of Present Illness Date of Admission: 08/13/20 Chief Complaint: Chest pain. The patient is a 74 year old F who presents emergency room due to chest pain. Patient reports she has had intermittent chest pain for the past few weeks which is sharp in nature. She denies pain radiation. She states occasionally she does feel short of breath related to the pain. Denies other associated symptoms. This morning around 4:30 AM she was awoken with chest pain which she states was more severe than previous episodes and also associated with chest pressure. She states it lasted for several hours. She denies any aggravating or alleviating factors. She does states she feels it is not cardiac in nature however wanted to get checked out to be sure. She denies cardiac history. She has a past medical history of chronic kidney disease stage III, CHRISTIANA, restless leg syndrome, GERD, morbid obesity, hypertension. Past Medical History Past Medical History (Chronic Problems): Chronic Problems (Last Updated 04/21/18 @ 08:01 by Roseanne Berry) Osteoarthritis (Chronic) CHRISTAINA (obstructive sleep apnea) (Chronic) GERD (gastroesophageal reflux disease) (Chronic) History of migraine (Chronic) Migraine headache (Chronic) Lumbar spinal stenosis (Chronic) Cervical spinal stenosis (Chronic) Lumbar radiculopathy (Chronic) Neuropathy (Chronic) Restless leg syndrome (Chronic) Sleep apnea (Chronic) Morbid obesity (Chronic) Hypertension (Chronic) Morbid obesity with BMI of 40.0-44.9, adult (Chronic) Medical History: Medical History (Last Updated 04/21/18 @ 08:01 by Roseanne Berry) Hypertension (Chronic) I10 Morbid obesity with BMI of 40.0-44.9, adult (Chronic) E66.01, Z68.41 GERD (gastroesophageal reflux disease) K21.9 Osteoarthritis M19.90 Peripheral neuropathy G62.9 Restless leg syndrome G25.81 Allergies erythromycin base [Erythromycin Base] Allergy (Verified 08/13/20 08:33) Rash lisinopril Allergy (Verified 08/13/20 08:33) Swelling amlodipine Adverse Reaction (Verified 08/13/20 08:33) Swelling latex Adverse Reaction (Verified 08/13/20 08:33) Swelling WASP Allergy (Uncoded 08/13/20 08:33) Other Home Medications: Ambulatory Orders Medication Instructions Recorded Potassium Chloride [K-Dur] 10 meq PO DAILY 06/07/18 Gabapentin [Neurontin] 300 mg PO TID 06/10/18 Multivitamins,Therapeutic 1 tablet PO DAILY 08/01/18 [Multivitamin] Coreg 25 mg PO BID 11/24/18 Levothyroxine 50 mcg PO DAILY 11/24/18 hydrALAZINE 25 mg PO BID 11/24/18 Apixaban [Eliquis] 5 mg PO BID 08/13/20 Baclofen 10 mg PO BID PRN PRN 08/13/20 Triamterene 37.5MG/Hctz 25MG 1 cap PO DAILY 08/13/20 [Dyazide (G)] Surgical History: Surgical History (Last Updated 04/21/18 @ 08:49 by Roseanne Berry) History of partial nephrectomy Z90.5 History of tonsillectomy Z90.89 History of total abdominal hysterectomy Z90.710 History of total knee arthroplasty Z96.659 Surgical History: hysterectomy - Bilateral oophorectomy with hyster 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 Psychiatric History: Anxiety, Depression, - - Patient suffered from anxiety/depression when her and was on Paxil but no longer takes this medication. 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 Patient reports he lived into his 90s. Maternal Family History: Family History (Last Reviewed 06/07/18 @ 15:46 by Elida Juarez NP, MOLD DESIGN ENGINEER-C) Mother Hypertension History Items: Hypertension Review of Systems Constitutional: Denies: Chills, Fever, Weight Change HEENT: Denies: Head Aches, Sinus Congestion, Sinus Drainage Cardiovascular: Reports: Chest Pain. Denies: Edema, Light Headedness, Palpitations, Syncope Respiratory: Denies: Cough, Shortness of breath at rest, Sputum production Gastrointestinal: Denies: Abdominal Pain, Nausea, Vomiting Genitourinary: Denies: Dysuria Musculoskeletal: Denies: Joint Pain, Joint Tenderness Skin: Denies: Rash, Wounds Neurological: Denies: Numbness, Tingling, Focal weakness Psychiatric: Denies: Anxiety, Depression, Homicidal Ideations, Suicidal Ideations Hematologic/ Lymphatic: Denies: Easy Bruising, Easy Bleeding VTE Information - Inpt Only VTE Present on Admission: No VTE Mechan Device Prophylaxis: None VTE Pharm Prophylaxis ordered?: No Reason prophylaxis not ordered:: Treatment Not Indicated - Already on anticoagulation with Eliquis Patient Problems: Active and Suspected Problems (Last Updated 04/21/18 @ 08:01 by Roseanne Berry) Chest pain (Acute) - Physical Exam Vitals/I&O's: Vital Signs Temp Pulse Resp BP Pulse Ox 98.5 F 77 16 112/52 L 96 08/13/20 11:30 08/13/20 13:55 08/13/20 11:30 08/13/20 13:55 08/13/20 11:30 Oxygen Delivery Method Room Air Weight: 238 lb 1.588 oz Body Mass Index (BMI) 42.1 Finger Stick Blood Glucose 122 General: Alert, Oriented x3, Cooperative HEENT: Atraumatic, PERRLA, EOMI, Normocephalic Neck: Supple, No JVD, Negative Carotid Bruits Lungs: Clear to auscultation, Normal air movement Cardiovascular: Regular rate, No murmurs Abdomen: Bowel Sounds Present, Soft, Non Tender, Non-Distended, Obese Extremities: No clubbing, No cyanosis, No edema, Capillary Refill Less than 3 Seconds Skin: No rashes, No breakdown Musculoskeletal: No Tenderness to Palpation of Joints or Extremities Neurological: Cranial nerves II-XII grossly intact, Neuro grossly intact Psych/Mental Status: Normal Affect, Appropriate Laboratory Results 08/13/20 08:25: WBC 5.5, RBC 4.31, Hgb 13.2, Hct 42.1, MCV 97.7, MCH 30.6, MCHC 31.4 L, RDW Std Deviation 46.7 H, RDW Coeff of [place] 13.2, Plt Count 155, MPV 9.6, Immature Gran % (Auto) 0.500, Neut % (Auto) 58.9, Lymph % (Auto) 30.3, [place] % (Auto) 7.5, Eos % (Auto) 2.4, Baso % (Auto) 0.4, Absolute Neuts (auto) 3.2, Absolute Lymphs (auto) 1.66, Nucleated RBC % 0 08/13/20 08:25: D-Dimer Quant (PE/DVT) 2.53 H* 08/13/20 08:25: Sodium 142, Potassium 3.8, Chloride 106, Carbon Dioxide 30.0, Anion Gap 6, BUN 14, Creatinine 0.83, Estim Creat Clear Calc 47.70, Est GFR (MDRD) Af Amer 86, Est GFR (MDRD) Non-Af 71, BUN/Creatinine Ratio 16.9, Glucose 103, Calcium 9.1, Troponin I < 0.015 08/13/20 11:40: Troponin I < 0.015 08/13/20 14:20: Troponin I < 0.015 Current Medications Acetaminophen (Acetaminophen 325 Mg Tablet) 650 mg PO Q6H PRN PRN PRN Reason: Pain Score 1-10/Temp > 100.7 F Melatonin (Melatonin 3 Mg Tablet) 3 mg PO QHS PRN PRN PRN Reason: INSOMNIA Nitroglycerin (Nitroglycerin (Inpatient Use) 0.4 Mg Tab.Subl) 0.4 mg SUBLINGUAL Q5M PRN PRN Reason: CARDIAC/CHEST PAIN Last Admin: 08/13/20 13:47 Dose: 0.4 mg Documented by: Sodium Chloride (0.9% Saline Lock 10 Ml Syringe) 10 - 40 ml IV UD PRN PRN Reason: SALINE FLUSH Assessment/Plan All Active Problems (Last Updated 04/21/18 @ 08:01 by Roseanne Berry) Chest pain (Acute) Facial paresthesia (Resolved) Chest pain (Resolved) Headache (Resolved) Hypertensive urgency (Resolved) Hypertensive urgency, malignant (Resolved) 1. Chest pain-atypical. Trend enzymes. Patient had normal stress test November 2017. Aspirin, statin, Coreg. Plan for repeat stress test if enzymes remain negative. CTA without PE. 2. Hypertension-continue Coreg, hydralazine, Dyazide. 3. Chronic kidney disease stage III-stable, trend BMP. 4. CHRISTIANA-continue CPAP regimen. 5. GERD-continue PPI. 6. Hypothyroidism-continue Synthroid regimen. 7. 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 8. Chronic back pain/osteoarthritis-on gabapentin. As needed baclofen. DVT prophylaxis-Eliquis This patient was seen by FAISAL Kumar under the supervision of Dr. Joiner. <Kenyon Joiner F - Last Filed: 08/13/20 19:49> History of Present Illness The patient is a 74 year old F [] Past Medical History Medical History: Medical History (Last Updated 04/21/18 @ 08:01 by Roseanne Berry) Hypertension (Chronic) I10 Morbid obesity with BMI of 40.0-44.9, adult (Chronic) E66.01, Z68.41 GERD (gastroesophageal reflux disease) K21.9 Osteoarthritis M19.90 Peripheral neuropathy G62.9 Restless leg syndrome G25.81 Allergies erythromycin base [Erythromycin Base] Allergy (Verified 08/13/20 08:33) Rash lisinopril Allergy (Verified 08/13/20 08:33) Swelling amlodipine Adverse Reaction (Verified 08/13/20 08:33) Swelling latex Adverse Reaction (Verified 08/13/20 08:33) Swelling WASP Allergy (Uncoded 08/13/20 08:33) Other Surgical History: Surgical History (Last Updated 04/21/18 @ 08:49 by Roseanne Berry) History of partial nephrectomy Z90.5 History of tonsillectomy Z90.89 History of total abdominal hysterectomy Z90.710 History of total knee arthroplasty Z96.659 - *Family History Paternal Family History: Family History (Last Reviewed 06/07/18 @ 15:46 by Elida Juarez NP, MOLD DESIGN ENGINEER-C) Mother Hypertension Maternal Family History: Family History (Last Reviewed 06/07/18 @ 15:46 by Elida Juarez NP, MOLD DESIGN ENGINEER-C) Mother Hypertension - Physical Exam Vitals/I&O's: Vital Signs Temp Pulse Resp BP Pulse Ox 98.5 F 72 16 112/52 L 96 08/13/20 11:30 08/13/20 15:00 08/13/20 11:30 08/13/20 13:55 08/13/20 11:30 Oxygen Delivery Method Room Air Weight: 238 lb 1.588 oz Body Mass Index (BMI) 42.1 Finger Stick Blood Glucose 122 Laboratory Results 08/13/20 08:25: WBC 5.5, RBC 4.31, Hgb 13.2, Hct 42.1, MCV 97.7, MCH 30.6, MCHC 31.4 L, RDW Std Deviation 46.7 H, RDW Coeff of [place] 13.2, Plt Count 155, MPV 9.6, Immature Gran % (Auto) 0.500, Neut % (Auto) 58.9, Lymph % (Auto) 30.3, [place] % (Auto) 7.5, Eos % (Auto) 2.4, Baso % (Auto) 0.4, Absolute Neuts (auto) 3.2, Absolute Lymphs (auto) 1.66, Nucleated RBC % 0 08/13/20 08:25: D-Dimer Quant (PE/DVT) 2.53 H* 08/13/20 08:25: Sodium 142, Potassium 3.8, Chloride 106, Carbon Dioxide 30.0, Anion Gap 6, BUN 14, Creatinine 0.83, Estim Creat Clear Calc 47.70, Est GFR (MDRD) Af Amer 86, Est GFR (MDRD) Non-Af 71, BUN/Creatinine Ratio 16.9, Glucose 103, Calcium 9.1, Troponin I < 0.015 08/13/20 11:40: Troponin I < 0.015 08/13/20 14:20: Troponin I < 0.015 Current Medications Acetaminophen (Acetaminophen 325 Mg Tablet) 650 mg PO Q6H PRN PRN PRN Reason: Pain Score 1-10/Temp > 100.7 F Apixaban (Apixaban 5 Mg Tablet) 5 mg PO BID [facility] Aspirin (Aspirin E.C. 81 Mg Tablet) 81 mg PO DAILY@0800 [facility] Baclofen (Baclofen 10 Mg Tablet) 10 mg PO BID PRN PRN PRN Reason: MUSCLE SPASM Carvedilol (Carvedilol 25 Mg Tablet) 25 mg PO BID [facility] Gabapentin (Gabapentin 300 Mg Capsule) 300 mg PO TID [facility] Hydralazine HCl (Hydralazine 25 Mg Tablet) 25 mg PO BID [facility] Levothyroxine Sodium (Levothyroxine 50 Mcg Tablet) 50 mcg PO DAILY@0600 [facility] Melatonin (Melatonin 3 Mg Tablet) 3 mg PO QHS PRN PRN PRN Reason: INSOMNIA Morphine Sulfate (Morphine 2 Mg/Ml Syringe) 1 mg IV Q2H PRN PRN PRN Reason: Pain Score 6-10 Nitroglycerin (Nitroglycerin (Inpatient Use) 0.4 Mg Tab.Subl) 0.4 mg SUBLINGUAL Q5M PRN PRN Reason: CARDIAC/CHEST PAIN Last Admin: 08/13/20 13:47 Dose: 0.4 mg Documented by: Sodium Chloride (0.9% Saline Lock 10 Ml Syringe) 10 - 40 ml IV UD PRN PRN Reason: SALINE FLUSH Triamterene/Hydrochlorothiazide (Triamterene 37.5mg/Hctz 25mg Capsule) 1 cap PO DAILY [facility] Addendum: Dr. Joiner I personally examined the patient and reviewed the chart. I agree with the above. 74-year-old female with a history of DVTs and hypertension presents with chest pain that has been waxing and waning for the last several weeks. Today it woke her up from sleep and states that it been worse today than it was previously. Is not associated with any type of exercise though does hurt with deep breathing. She had a CTA in the ER which was negative for PE and she is fully anticoagulated on Eliquis. Her daughter is positive for Covid and she was tested last week and was negative and she denies any fevers or cough and remains asymptomatic. Her pain is atypical and does not radiate. Initial troponins were negative, and EKG was nonischemic. We will plan for a stress test in the morning. OBSV E&M: 12592 Initial observation care L3
[2020-08-13] MEDS: Ibuprofen 200 MG Tablet PO (19:50)
[2020-08-13] MEDS: hydrALAZINE 25 MG Tablet PO (21:18)
[2020-08-13] MEDS: APIXABAN 5 MG TABLET PO (21:18)
[2020-08-13] MEDS: MELATONIN 3 MG TABLET PO (21:19)
[2020-08-13] MEDS: Acetaminophen 325 MG Tablet 650 MG PO (21:19)
[2020-08-14] VITALS (9 sets, daily range): BP systolic 132–158; BP diastolic 61–82; PULSE 54–70; RESP 16–18; TEMP 36.3–36.9; O2SAT 93–96
[2020-08-14] MEDS: Levothyroxine 50 MCG Tablet PO (05:43)
[2020-08-14] MEDS: Gabapentin 300 MG Capsule PO ×2 (05:43→14:47)
[2020-08-14 05:52] LABS: Cholesterol 153 mg/dL (200); High Density Lipoprotein 28 mg/dL; Triglycerides 98 mg/dL; Very Low Density Lipoprotein 20 mg/dL (5-40)
--- NOTE | 2020-08-14 05:55 | EKG12_ITS ---
Test Reason : CP Blood Pressure : / mmHG Vent. Rate : 079 BPM Atrial Rate : 079 BPM P-R Int : 168 ms QRS Dur : 090 ms QT Int : 382 ms P-R-T Axes : 047 012 049 degrees QTc Int : 438 ms Normal sinus rhythm Normal ECG Confirmed by NANETTE ROMERO, ROQUE ([id number]), editor in chief newspaper ARBEN HEBERT ([id number]) on 08/16/2020 10:33:09 AM Referred By: CORINA Confirmed By:ROQUE FITZPATRICK MD
[2020-08-14] MEDS: Aspirin E.C. 81 MG Tablet PO (06:30)
[2020-08-14] MEDS: hydrALAZINE 25 MG Tablet PO (11:08)
[2020-08-14] MEDS: Carvedilol 25 MG Tablet PO (11:08)
--- NOTE | 2020-08-14 11:35 | STRESSREP ---
Stress Test Report Pharmacologic myocardial perfusion stress test. 74-year-old lady with a history of chest pain. Stress protocol: Resting EKG demonstrates normal sinus rhythm with a rate of 63 bpm normal intervals are noted resting blood pressure is 146/78 mmHg. 0.4 mg of regadenoson was infused per usual protocol followed by rapid intravenous saline flush injection continuous EKG monitoring was performed. Patient maintained sinus rhythm throughout the recording. At rest there were no ST or T wave changes noted to suggest abnormal flow reserve at peak infusion nonspecific ST changes were noted with no meet criteria for ischemia. No clinical angina was noted. The maximum heart rate was 77 bpm the peak blood pressure was 146/78 mmHg. Myocardial perfusion protocol. 14.3 mCi of technetium 99m sestamibi was injected at rest. 0.4 mg of regadenoson was infused per usual protocol. At peak infusion 43.8 mCi of technetium 99m sestamibi was injected stress images were obtained stress and rest images were reconstructed and compared in the short axis vertical long horizontal long axis. Gated images were also obtained Perfusion SPECT analysis: Review of the images demonstrate normal uptake of tracer noted in all areas of the myocardium the rest images similar demonstrate normal uptake of tracer noted in all areas of the myocardium no reversibility is noted suggest ischemia no previous infarct is noted. Gated SPECT analysis: The gated ejection fraction is 80%. Conclusion: Normal pharmacologic myocardial perfusion stress test. Preserved ejection fraction.
--- NOTE | 2020-08-14 11:44 | DCINST_ITS ---
- Discharge Diagnoses Current Active Problems: Current Active and Chronic Problems (Last Updated 04/21/18 @ 08:01 by Roseanne Berry) Osteoarthritis (Chronic) CHRISTIANA (obstructive sleep apnea) (Chronic) GERD (gastroesophageal reflux disease) (Chronic) History of migraine (Chronic) Migraine headache (Chronic) Lumbar spinal stenosis (Chronic) Cervical spinal stenosis (Chronic) Lumbar radiculopathy (Chronic) Neuropathy (Chronic) Restless leg syndrome (Chronic) Sleep apnea (Chronic) Morbid obesity (Chronic) Chest pain (Acute) Hypertension (Chronic) Morbid obesity with BMI of 40.0-44.9, adult (Chronic) You will use the following diet at home:: No restrictions Discharge Activity: Return to Normal Activity Call your doctor if you observe: Shortness of breath, Dizziness, Fainting spells, Chest pain Allergies/Adverse Reactions: Allergies erythromycin base [Erythromycin Base] Allergy (Verified 08/13/20 08:33) Rash lisinopril Allergy (Verified 08/13/20 08:33) Swelling amlodipine Adverse Reaction (Verified 08/13/20 08:33) Swelling latex Adverse Reaction (Verified 08/13/20 08:33) Swelling WASP Allergy (Uncoded 08/13/20 08:33) Other Medications to take at Discharge Potassium Chloride [K-Dur] 10 meq PO DAILY 06/07/18 Gabapentin [Neurontin] 300 mg PO TID 06/10/18 Multivitamins,Therapeutic [Multivitamin] 1 tablet PO DAILY 08/01/18 Coreg 25 mg PO BID 11/24/18 Levothyroxine 50 mcg PO DAILY 11/24/18 hydrALAZINE 25 mg PO BID 11/24/18 Apixaban [Eliquis] 5 mg PO BID 08/13/20 Baclofen 10 mg PO BID PRN PRN 08/13/20 Triamterene 37.5MG/Hctz 25MG [Dyazide (G)] 1 cap PO DAILY 08/13/20 Primary Care Physician: Ever Kilgore MD [Primary Care Provider] - Please follow up with your Primary Care Physician in: 1 Week Test Results: Test results from this visit will be discussed in further detail at your follow- up appointment, if applicable. Proposed Discharge Date: 08/14/20
--- NOTE | 2020-08-14 11:55 | DS.PCM_ITS ---
<Elida Juarez SHAPER HAND - Last Filed: 08/14/20 11:59> Discharge Date and Diagnosis - Problem List Patient Problems: Active and Suspected Problems (Last Updated 04/21/18 @ 08:01 by Roseanne Berry) Chest pain (Acute) Date of Admission: 08/13/20 Date of Discharge: 08/14/20 - Primary Discharge Diagnosis Acute Problems: Active Problems (Last Updated 04/21/18 @ 08:01 by Roseanne Berry) 1. Musculoskeletal chest pain, ACS ruled out 2. Hypertension 3. Chronic kidney disease stage III 4. CHRISTIANA 5. GERD 6. Hypothyroidism 7. History of VTE 8. Chronic back pain/osteoarthritis - Secondary Discharge Diagnosis Chronic Problems: Chronic Problems (Last Updated 04/21/18 @ 08:01 by Roseanne Berry) Osteoarthritis (Chronic) CHRISTIANA (obstructive sleep apnea) (Chronic) GERD (gastroesophageal reflux disease) (Chronic) History of migraine (Chronic) Migraine headache (Chronic) Lumbar spinal stenosis (Chronic) Cervical spinal stenosis (Chronic) Lumbar radiculopathy (Chronic) Neuropathy (Chronic) Restless leg syndrome (Chronic) Sleep apnea (Chronic) Morbid obesity (Chronic) Hypertension (Chronic) Morbid obesity with BMI of 40.0-44.9, adult (Chronic) Hospital Course and Treatment Imaging Results: Diagnostic Data Chest X-Ray 08/13/20 08:31 IMPRESSION: Normal x-ray examination of the chest. Electronically Signed: Sammy Argueta DO at 8:48 EST Tel , Service support , Chest CTA 08/13/20 09:00 IMPRESSION: Normal CTA chest examination, without a demonstrated pulmonary embolism or arterial dissection. Lungs are clear. Electronically Signed: Sammy Argueta DO at 9:32 EST Tel , Service support , Operations: None Procedures: Stress test Summary of Care Provided: The patient is a 74 year old F admitted 08/13/2020 due to chest pain. 1. Musculoskeletal chest pain, ACS ruled out-troponin negative. Patient had normal stress test November 2017. D-dimer elevated. CTA of chest normal. Patient underwent nuclear stress test which was negative for ischemia, gated ejection fraction 80%. Patient states the left side of her chest hurts when she takes a deep breath or pushes forward with her walker. Follow-up with primary care physician in 1 week. 2. Hypertension-continue Coreg, hydralazine, Dyazide. 3. Chronic kidney disease stage III-stable. 4. CHRISTIANA-continue CPAP regimen. 5. GERD-continue PPI. 6. Hypothyroidism-continue Synthroid regimen. 7. 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 8. Chronic back pain/osteoarthritis-on gabapentin. As needed baclofen. General: Alert, Oriented x3, Cooperative HEENT: Atraumatic, PERRLA, EOMI, Normocephalic Neck: Supple, No JVD, Negative Carotid Bruits Lungs: Clear to auscultation, Normal air movement Cardiovascular: Regular rate, No murmurs Abdomen: Bowel Sounds Present, Soft, Non Tender, Non-Distended, Obese Extremities: No clubbing, No cyanosis, No edema, Capillary Refill Less than 3 Seconds Skin: No rashes, No breakdown Musculoskeletal: No Tenderness to Palpation of Joints or Extremities Neurological: Cranial nerves II-XII grossly intact, Neuro grossly intact Psych/Mental Status: Normal Affect, Appropriate Patient seen and examined prior to discharge. Physical assessment as noted above. Patient is stable for discharge with follow up recommendations as noted above. This patient was seen by FAISAL Kumar under the supervision of Dr. Tapia. Patient Problems: Active and Suspected Problems (Last Updated 04/21/18 @ 08:01 by Roseanne Berry) Chest pain (Acute) - Physical Exam Vitals/I&O's: Vital Signs Temp Pulse Resp BP Pulse Ox 98.4 F 66 18 158/82 H 96 08/14/20 11:06 08/14/20 11:08 08/14/20 11:06 08/14/20 11:08 08/14/20 11:06 Oxygen Delivery Method Room Air Weight: 238 lb 1.588 oz Body Mass Index (BMI) 42.1 Finger Stick Blood Glucose 122 Intake and Output for Last 24 Hours 08/12/20 08/13/20 08/14/20 23:59 23:59 23:59 Intake Total 240 / 240 Output Total 0 / 0 Balance 240 / 240 Laboratory Results 08/13/20 11:40: Troponin I < 0.015 11/22/20 14:20: Troponin I < 0.015 08/14/20 04:40: Triglycerides 98, Cholesterol 153, LDL Cholesterol 105, VLDL Cholesterol 20, HDL Cholesterol 28 L Current Medications Acetaminophen (Acetaminophen 325 Mg Tablet) 650 mg PO Q6H PRN PRN PRN Reason: Pain Score 1-10/Temp > 100.7 F Last Admin: 08/13/20 21:19 Dose: 650 mg Documented by: Apixaban (Apixaban 5 Mg Tablet) 5 mg PO BID [facility] Last Admin: 08/13/20 21:18 Dose: 5 mg Documented by: Aspirin (Aspirin E.C. 81 Mg Tablet) 81 mg PO DAILY@0800 [facility] Last Admin: 08/14/20 06:30 Dose: 81 mg Documented by: Baclofen (Baclofen 10 Mg Tablet) 10 mg PO BID PRN PRN PRN Reason: MUSCLE SPASM Carvedilol (Carvedilol 25 Mg Tablet) 25 mg PO BID [facility] Last Admin: 08/14/20 11:08 Dose: 25 mg Documented by: Gabapentin (Gabapentin 300 Mg Capsule) 300 mg PO TID [facility] Last Admin: 08/14/20 05:43 Dose: 300 mg Documented by: Hydralazine HCl (Hydralazine 25 Mg Tablet) 25 mg PO BID [facility] Last Admin: 08/14/20 11:08 Dose: 25 mg Documented by: Levothyroxine Sodium (Levothyroxine 50 Mcg Tablet) 50 mcg PO DAILY@0600 [facility] Last Admin: 08/14/20 05:43 Dose: 50 mcg Documented by: Melatonin (Melatonin 3 Mg Tablet) 3 mg PO QHS PRN PRN PRN Reason: INSOMNIA Last Admin: 08/13/20 21:19 Dose: 3 mg Documented by: Morphine Sulfate (Morphine 2 Mg/Ml Syringe) 1 mg IV Q2H PRN PRN PRN Reason: Pain Score 6-10 Nitroglycerin (Nitroglycerin (Inpatient Use) 0.4 Mg Tab.Subl) 0.4 mg SUBLINGUAL Q5M PRN PRN Reason: CARDIAC/CHEST PAIN Last Admin: 08/13/20 13:47 Dose: 0.4 mg Documented by: Sodium Chloride (0.9% Saline Lock 10 Ml Syringe) 10 - 40 ml IV UD PRN PRN Reason: SALINE FLUSH Triamterene/Hydrochlorothiazide (Triamterene 37.5mg/Hctz 25mg Capsule) 1 cap PO DAILY RYLIE Last Admin: 08/14/20 11:13 Dose: Not Given Documented by: Discharge Diet: No Restrictions Discharge Activity: Return to Normal Activity Call your doctor if you observe: Shortness of breath, Dizziness, Fainting spells, Chest pain Home Medications: Medications to take at Discharge Potassium Chloride [K-Dur] 10 meq PO DAILY 06/07/18 Gabapentin [Neurontin] 300 mg PO TID 06/10/18 Multivitamins,Therapeutic [Multivitamin] 1 tablet PO DAILY 08/01/18 Coreg 25 mg PO BID 11/24/18 Levothyroxine 50 mcg PO DAILY 11/24/18 hydrALAZINE 25 mg PO BID 11/24/18 Apixaban [Eliquis] 5 mg PO BID 08/13/20 Baclofen 10 mg PO BID PRN PRN 08/13/20 Triamterene 37.5MG/Hctz 25MG [Dyazide (G)] 1 cap PO DAILY 08/13/20 Primary Care Physician: Ever Kilgore MD [Primary Care Provider] - Please follow up with your Primary Care Physician in: 1 Week Disposition: Home Minutes spent on discharge:: 35 Patient Condition:: Stable Medical Necessity - Tobacco Use Smoking Status: Never smoker Meaningful Use Info Meaningful Use Diagnoses (Choose all that apply): None applicable <Andrade Tapia - Last Filed: 08/14/20 16:23> Discharge Date and Diagnosis - Primary Discharge Diagnosis Acute Problems: Active Problems (Last Updated 04/21/18 @ 08:01 by Roseanne Berry) Chest pain (Acute) - Secondary Discharge Diagnosis Chronic Problems: Chronic Problems (Last Updated 04/21/18 @ 08:01 by Roseanne Berry) Osteoarthritis (Chronic) CHRISTIANA (obstructive sleep apnea) (Chronic) GERD (gastroesophageal reflux disease) (Chronic) History of migraine (Chronic) Migraine headache (Chronic) Lumbar spinal stenosis (Chronic) Cervical spinal stenosis (Chronic) Lumbar radiculopathy (Chronic) Neuropathy (Chronic) Restless leg syndrome (Chronic) Sleep apnea (Chronic) Morbid obesity (Chronic) Hypertension (Chronic) Morbid obesity with BMI of 40.0-44.9, adult (Chronic) Hospital Course and Treatment Operations: None Procedures: Stress test Summary of Care Provided: Patient seen and examined independently. Data reviewed. I agree with the above note by the nurse practitioner. The patient is a 74 year old F presents with chest pain. Patient had a work-up, including stress test, CTA of the chest which were unremarkable. [employer] that this chest pain was likely musculoskeletal and reassurance provided to the patient. [] - Physical Exam Vitals/I&O's: Vital Signs Temp Pulse Resp BP Pulse Ox 36.9 C 69 18 132/71 H 96 08/14/20 15:40 08/14/20 15:40 08/14/20 15:40 08/14/20 15:40 08/14/20 15:40 Oxygen Delivery Method Room Air Weight: 108 kg Body Mass Index (BMI) 42.1 Finger Stick Blood Glucose 122 Intake and Output for Last 24 Hours 08/12/20 08/13/20 08/14/20 23:59 23:59 23:59 Intake Total 480 / 480 Output Total 0 / 0 Balance 480 / 480 General: Alert, No apparent distress HEENT: Atraumatic, Normocephalic Oral: Moist Mucosa, No Gingival or Mucosal Lesions/ Ulcerations Neck: No Nodes, Thyroid Normal Size and Texture Lungs: Clear to auscultation, Normal air movement, No rhonchi, No wheeze Cardiovascular: Regular rate, Regular Rhythm, Normal S1, Normal S2 Abdomen: Bowel Sounds Present, Soft, Non Tender, Non-Distended Extremities: No edema, No Calf Tenderness Laboratory Results 08/14/20 04:40: Triglycerides 98, Cholesterol 153, LDL Cholesterol 105, VLDL Cholesterol 20, HDL Cholesterol 28 L Discharge Diet: No Restrictions Discharge Activity: Return to Normal Activity Call your doctor if you observe: Shortness of breath, Dizziness, Fainting spells, Chest pain Disposition: Home Patient Condition:: Stable Medical Necessity - Tobacco Use Smoking Status: Never smoker Meaningful Use Info Meaningful Use Diagnoses (Choose all that apply): None applicable OBSV E&M: 08733 Observation care discharge
[2020-08-14] MEDS: APIXABAN 5 MG TABLET PO (12:51)
--- NOTE | 2020-08-14 13:53 | CASEMGMT ---
Intro role of CM to patient and [facility] form explained re: Observation status for treatment of chest pain. Explained hospitalization will be paid per? insurance policy for Outpatient billing?and condition will continue to be evaluated for Inpt necessity. Also let pt know that [facility] sends paper in the billing packet with their phone number if questions arise. Discussed Pharmacy section of [facility] form and self administered medication guideline.? Pt verbalizes understanding and does not have further questions. Form signed and placed in chart, copy to pt. EBEN MAYA BSN CM
== END 2020-08-14 11:35 | disposition home or self-care (01) ==
LOC: ED 10:18 → PCU 10:34
PROVIDERS: Admitting Provider Family Medicine; Emergency Provider Emergency Medicine; PCP Family Medicine
DX: R07.89 Other chest pain (principal); E03.9 Hypothyroidism, unspecified; E66.01 Morbid (severe) obesity due to excess calories; F32.9 Major depressive disorder, single episode, unspecified; F41.9 Anxiety disorder, unspecified; G25.81 Restless legs syndrome; G47.33 Obstructive sleep apnea (adult) (pediatric); G62.9 Polyneuropathy, unspecified; I12.9 Hypertensive chronic kidney disease with stage 1 through stage 4 chronic kidney disease, or unspecified chronic kidney disease; K21.9 Gastro-esophageal reflux disease without esophagitis; M19.90 Unspecified osteoarthritis, unspecified site; M48.02 Spinal stenosis, cervical region; M48.061 Spinal stenosis, lumbar region without neurogenic claudication; N18.30 Chronic kidney disease, stage 3 unspecified; Z68.41 Body mass index [BMI] 40.0-44.9, adult; Z79.01 Long term (current) use of anticoagulants; Z79.82 Long term (current) use of aspirin; Z79.899 Other long term (current) drug therapy; Z86.718 Personal history of other venous thrombosis and embolism; Z90.5 Acquired absence of kidney; Z90.710 Acquired absence of both cervix and uterus; Z90.722 Acquired absence of ovaries, bilateral; G89.29 Other chronic pain
CPT/HCPCS: 36415; 71045; 71275; 78452; 80048; 80061; 84484; 85025; 85379; 93005; 93017; 96374; 99218; 99285; A9500; Q9967; A4216; G0378; J2785

== ENCOUNTER 2020-09-04 14:41 | Emergency (ER) | payer MEDICARE, OTHER, SELFPAY ==
[2020-08-13 11:13] VITALS: BMI 42.1
[2020-09-04] VITALS (11 sets, daily range): BP systolic 136–159; BP diastolic 62–79; PULSE 47–89; RESP 15–19; TEMP 36–37.2; O2SAT 93–98; BMI 42.6
--- NOTE | 2020-09-04 15:07 | ED.DCSUM_ITS ---
History of Present Illness Chief Complaint: Fever Informant: Patient Narrative: 74-year-old female presenting with fevers which have been on and off for the past 3 to 4 weeks. She reports that this is been happening since her previous admission to the hospital for cardiac work-up. She states that her only risk of exposure would be through her daughter and granddaughter. She saw them Friday. She reports a dry cough that is been worse over the past 3 days. She also has myalgias. Patient states this morning she had a temperature of 99 ?F. She took Tylenol. This was about 7 hours ago. She arrives afebrile. She states she feels generally weak, and at baseline she can only walk a few feet with her walker secondary to previous back surgery. Past Medical History - Allergies and Home Meds Allergies/Adverse Reactions: Allergies erythromycin base [Erythromycin Base] Allergy (Verified 09/04/20 14:44) Rash lisinopril Allergy (Verified 09/04/20 14:44) Swelling amlodipine Adverse Reaction (Verified 09/04/20 14:44) Swelling latex Adverse Reaction (Verified 09/04/20 14:44) Swelling WASP Allergy (Uncoded 09/04/20 14:44) Other Primary Care Physician: Ever Kilgore MD [Primary Care Provider] - Prior records reviewed: Yes Past Medical History: - - GERD, hyperlipidemia, hypertension, DVT Surgical History: hysterectomy - Bilateral oophorectomy with hyster 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 Lives: Alone Smoking Status: Never smoker Alcohol: None Drugs: None - Family History Paternal Family History: Family History (Last Reviewed 06/07/18 @ 15:46 by Elida Juarez NP, [employer]) Mother Hypertension Family History: Reports: - - Denies known paternal medical history including cardiac history. Patient reports he lived into his 90s. Maternal Family History: Family History (Last Reviewed 06/07/18 @ 15:46 by Elida Juarez NP, [employer]) Mother Hypertension Family History: Reports: Hypertension Review of Systems General: Reports: Chills, Fever, Malaise, Sweats Eyes: Denies: Visual changes - bilaterally, Diplopia ENT: Denies: Rhinorrhea, Sore throat Cardiovascular: Denies: Chest pain, Palpitations Respiratory: Reports: Dyspnea, Cough Gastrointestinal: Reports: Abdominal pain, Nausea. Denies: Vomiting, Diarrhea, Melena, Hematochezia Genitourinary: Denies: Dysuria, Hematuria, Frequency Musculoskeletal: Reports: Myalgias. Denies: Arthralgias Skin: Denies: Rash, Wounds Neurological: Reports: Headache, Parasthesia. Denies: Numbness Psych: Denies: Depression, Anxiety, Suicidal thoughts, Suicidal ideations, -, - Physical Exam Vital Signs/Narrative: Vital Signs Temp Pulse Resp BP Pulse Ox 09/04/20 14:42 96.8 F L 47 L 15 159/76 H 97 Inital Vital Signs reviewed: Yes General: Obese Head: Normocephalic, Atraumatic Eyes: Perrl, EOMI ENT: Moist mucous membranes, No rhinorrhea Cardiovascular: Regular rate, Regular rhythm Abdomen: Soft, Nontender, Nondistended Extremities: Nontender, No edema Skin: Normal color, No rash. Negative for: Cyanosis, Diaphoresis Neurological: Alert, Oriented x3, Cranial nerves II-XII grossly intact Psychological: Normal affect, Normal Mood Diagnostic/Tx/Re-eval - Rhythm Strip Rhythm Strip: Sinus Rhythm Rate: 86 - EKG Initial EKG Interpretation: Sinus Rhythm, No Acute Injury Pattern, Non-Specific ST Changes - Medical Decision Making Patient's work-up is unremarkable. She has a negative urinalysis and a negative chest ray x-ray myself and the radiologist. Electrolytes and renal function are normal. I found no source of infection. Patient is afebrile here and has not been treated. She is here for multiple hours given that she has not made up her decision whether she wants to go home or go to a chcf. This was discussed several times with her and her daughter via myself via social work and via nursing. Discussed with hospitalist that she finally decided to come into the hospital for placement into a chcf however it was felt he could get her into a chcf tonight. While she was waiting she decided that she would just go home. She is ambulatory at her baseline and was able to get up and use the restroom on her own in the room. She was ambulated and was stable. Patient was tested for Covid?19 and this test is pending. Patient is counseled to quarantine at home. Patient is given return precautions. Impression: 1. History of fever 2. Generalized weakness 3. Viral syndrome ED Disposition - Plan for ED Patient: Disposition: Home or Assisted Living Instructions: Coronavirus Disease 2019 (COVID-19): Overview, Coronavirus Disease 2019 (COVID-19): Caring for Yourself or Others, Preventing the Spread of Infection Understanding Isolation Procedures, ED Fever Control (Adult) Referrals: Ever Kilgore MD [Primary Care Provider] -
--- NOTE | 2020-09-04 15:22 | EKG12_ITS ---
Test Reason : SOB Blood Pressure : / mmHG Vent. Rate : 086 BPM Atrial Rate : 086 BPM P-R Int : 164 ms QRS Dur : 092 ms QT Int : 374 ms P-R-T Axes : 033 -01 030 degrees QTc Int : 447 ms Normal sinus rhythm Nonspecific T wave abnormality Abnormal ECG Confirmed by DREW ROMERO, STEPHEN ([id number]), metropolitan editor TIMA WICK ([id number]) on 09/13/2020 9:55:41 A M Referred By: CLIVE Confirmed By:VICTORINO RUSSELL MD
[2020-09-04 15:41] LABS: Absolute Lymphocyte Count 1.88 X10^3/uL (0.83-4.51); Basophil# 0.01 X10^3/uL; Basophil% 0.1 % (0-1); Eosinophil# 0.42 X10^3/uL; Eosinophils% 5.2 % (0-5); Hemoglobin 12.8 g/dL (12.0-15.0); Lymphocyte # 1.88 X10^3/ul (4.0); Lymphocyte % 23.3 % (19-41); Mean Corp Hgb Conc 31.2 g/dL (32-36); Mean Corpuscular Hgb 29.6 pg (27.0-32.0); Mean Corpuscular Volume 94.9 fL (81-99); Mean Platelet Vol. 9.2 fl (6.2-12.0); Monocyte# 0.67 X10^3/uL; Monocyte% 8.3 % (0-10); NRBC Flagged by Analyzer 0 % (0-5); Neutrophil # 5.04 X10^3/uL (2.7-7.7); Neutrophil % 62.5 % (47-70); Platelet Count 200 K/mm3 (150-450); RBC Distribution Width CV 13.2 % (11.6-14.6); RBC Distribution Width SD 46.5 fl (35.1-43.9); Red Blood Count 4.32 M/mm3 (4.2-5.4); White Blood Count 8.1 K/mm3 (4.4-11.0)
[2020-09-04 15:51] LABS: Bacteria 0 SEEN /hpf (None Seen); Mucous, Urine 0 SEEN /hpf (<or=2+); Red Blood Cells-Urine 0 SEEN /hpf (0-5); Squamous Epithelial Cells - UA 0 SEEN /hpf (5-10); White Blood Cells 0 SEEN /hpf (0-5)
[2020-09-04 16:02] LABS: Color, Urine Yellow (Yellow); Glucose, Dipstick Normal (Normal); Ketone-Dipstick Negative (Negative); Leukocyte Esterase-Dipstick Negative /ul (Negative); Nitrite-Dipstick Negative (Negative); Occult Blood-Urine Negative /ul (Negative); Protein-Dipstick Negative (Negative); Urine Bilirubin Dipstick Negative (Negative); Urine Clarity Clear (Clear); Urine Urobilinogen Normal (Normal)
[2020-09-04 16:04] LABS: ALB/GLOB Ratio 0.9 RATIO (0.9-2.4); AST(SGOT) 20 U/L (15-37); Alanine Aminotransfer ALT/SGPT 12 U/L (13-56); Albumin, Serum 2.9 g/dL (3.2-5.0); Alkaline Phosphatase 70 U/L (45-117); Anion Gap 7 (5-15); BUN 12 mg/dL (7-18); BUN/Creat Ratio 16.2 RATIO (10-20); Calcium,Total 8.7 mg/dL (8.5-10.1); Chloride 105 mmol/L (98-107); Creatinine, Serum 0.74 mg/dL (0.55-1.02); EST Glomerular Filtration Rate 81 mL/min (>60); Est Glom Filt Rate - Afr Amer 98 mL/min (>60); Estimated Creatinine Clearance 37.85 ml/min; Globulin 3.4 g/dL (2.2-4.2); Glucose 112 mg/dL (74-106); Potassium 3.7 mmol/L (3.5-5.1); Protein, Total 6.3 g/dL (6.4-8.2); Sodium Level 139 mmol/L (136-145)
[2020-09-04 16:10] LABS: Lactic Acid 1.4 mmol/L (0.4-1.9)
--- NOTE | 2020-09-04 16:15 | RAD_ITS ---
STUDY: X-RAY CHEST REASON FOR EXAM: Female, 74 years old. PT C/O FEVER X 3 WEEKS. WAS ADMITTED IN THE HOSPITAL FOR SAME. TECHNIQUE: Single AP portable view of the chest. COMPARISON: 08/13/2020 FINDINGS: The lungs are clear and expanded. There is no demonstrated pleural abnormality. Normal size heart. Normal mediastinum and favina. Normal visualized pulmonary arteries. Normal visualized aortic arch and descending thoracic aorta. Normal visualized thoracic spine. Normal visualized ribs, clavicles, and shoulders. There is no demonstrated abnormality of the visualized soft tissue structures of the upper abdomen. RAD/Chest 1 View (Portable) IMPRESSION: Normal x-ray examination of the chest. Electronically Signed: Avila Avalos MD at 16:34 EST Tel , Service support ,
[2020-09-04 16:21] LABS: Procalcitonin < 0.04 ng/mL (0.00-0.09)
--- NOTE | 2020-09-04 19:55 | CM.ED ---
Social Work Consult: Discharge Planning Informant: Nurse, Becca Patient daughter, Shauna calling to speak with medical team about concerns for patient being able to care for self. This social sciences lecturer speaking with Shauna on phone. Shauna reports that patient has not been able to care for self over the past month. Shauna reports to be unable to care for patient in the home as I work. Shauna reports that patient lives alone and typically cares for self and is independent with driving, meals, ADL's etc. Shauna reports to have spoken with medical doctors in the ED and to have been informed that patient does not meet criteria for medical admission. Shauna concerned about patient being able to care for self. This social sciences lecturer broached topic of shelter but clarifying that patient would need to be open to this. Shauna plans to call and speak with patient and than speak with this social sciences lecturer. Patient currently in precautions. This social sciences lecturer with plan to call patient once Shauna has spoken with patient to clarify patient wishes/goals. Per ED doctor, patient declined referral for shelter placement as patient was reporting to be weak. Will continue to follow. Kevin GAYLE, IESHA
--- NOTE | 2020-09-04 21:20 | CM.ED ---
Social Work Patient called this social media coordinator back and reports that patient does want to be admitted to a custodial. Telephone call to patient room. Patient confirms wishes to explore custodial placement. Patient reports that is what my daughter wants. Updated ED doctor, Dr. Michaels. Dr. Michaels attempted to speak to hospitalist about admission. Patient is declined admission due to not having any medical reason for admission. Hospitalist recommending for patient to do a direct admission to custodial. This social media coordinator clarified current time of day and unable to facilitate custodial placement from ED after hours. Hospitalist declining admission due to patient no meeting criteria. This social media coordinator updated patient and patient daughter on above. Patient states to be fine with returning to home. Patient daughter with continued concerns but agreeable to come and provide transportation to home for patient. Patient encouraged to return to the ED for any medical emergency. This social media coordinator also educated patient/patient daughter on placement options from the community if patient continues to have difficulty caring for self. All agreeable to plan. PLAN: Discharge to home. Kevin GAYLE, IESHA
== END 2020-09-04 21:19 | disposition home or self-care (01) ==
PROVIDERS: Emergency Provider Student in an Organized Health Care Education/Training Program; PCP Family Medicine
DX: B34.9 Viral infection, unspecified (principal); I10 Essential (primary) hypertension; E78.5 Hyperlipidemia, unspecified; K21.9 Gastro-esophageal reflux disease without esophagitis; E66.9 Obesity, unspecified; Z86.718 Personal history of other venous thrombosis and embolism; Z79.01 Long term (current) use of anticoagulants; Z79.899 Other long term (current) drug therapy
CPT/HCPCS: 71045; 80053; 81001; 83605; 84145; 84484; 85025; 87040; 93005; 99285

== ENCOUNTER 2020-12-03 19:45 | Emergency (ER) | payer MEDICARE, OTHER, SELFPAY ==
[2020-09-04 14:42] VITALS: BMI 42.6
[2020-12-03 19:46] VITALS: BP 160/73; PULSE 75; RESP 16; TEMP 36.8; O2SAT 99; BMI 38.2
--- NOTE | 2020-12-03 20:07 | ED.DCSUM_ITS ---
- ER Visit Summary Date of Service: 12/03/20 Chief Complaint: [Abscess to back] History of Present Illness: The patient is a 75 F [is the emergency department with a soft tissue swelling to her back that she has had for about 3 weeks. Patient has been seen twice for this and has been put on antibiotics and they have had the area of swelling outlined with marker. This evening the wound opened up and started to drain. Patient's been complaining of severe pain to the area. She denies any pain radiating into her legs. She denies any fevers. Patient does not know what antibiotic she is taking. Patient does have history of GERD, hypertension, and obstructive sleep apnea.] Physical Examination: [HEENT-PERRLA, EOMI. Cranial nerves II through XII grossly intact. TMs clear. Mucous membranes moist. No adenopathy. Cardiovascular-regular rate and rhythm without murmur or ectopy Lungs-clear to auscultation, chest wall stable without crepitus or subcu emphysema Abdomen-normoactive bowel sounds, soft, nontender, no rebound or rigidity, no peritoneal signs. Back exam-at about the level of L1 patient has a soft tissue swelling with cottage cheeselike discharge expelling from the central portion of the swelling. There is minimal faint erythema surrounding it. It measures approximately 3 cm in diameter. Extremities-intact ?4, normal range of motion, normal pulses, atraumatic] Test Results: [None] Emergency Department Course and Treatment: [Given that the wound was already draining I was able to gently apply pressure around the wound and large amount of copious free-flowing purulent debris was expressed that was thick and cottage cheeselike consistent with sebaceous cyst that is infected. Patient tolerated well the expression of the suspected abscess. I discussed with patient potentially imaging the area given that it is right over the spine and the amount of pain she was complaining about to evaluate deeper seeded infection and potential spread to osseous structure of the lumbar spine. Patient at this point would prefer to keep her outpatient appointment in 3 days for reeval now that the abscess is drained. My suspicion is low however for osteomyelitis or deeper seeded infection at this time.] Treatment Plan: [To follow-up with her primary care physician in 3 days. She is advised to return if worsening pain, fever, or condition should worsen anyway.] Disposition: [Discharged home in stable condition] Impression: [Infected sebaceous cyst-spontaneously draining] This note was generated with [employer] dictation software. It may contain incorrect words, spelling, and punctuation that were not noted in review of the chart prior to signing ED Disposition - Plan for ED Patient: Referrals: Ever Kilgore MD [Primary Care Provider] -
--- NOTE | 2020-12-03 20:14 | ED.DEP ---
ED Disposition - Plan for ED Patient: Instructions: Epidermoid Cyst Infect I and D, ED Abscess Incision And Drainage Referrals: Ever Kilgore MD [Primary Care Provider] - Keep Cesar appointment
== END 2020-12-03 20:43 | disposition home or self-care (01) ==
LOC: ED 20:18
PROVIDERS: Emergency Provider Emergency Medicine; PCP Family Medicine
DX: L72.3 Sebaceous cyst (principal)
CPT/HCPCS: 99282

== ENCOUNTER → 2021-01-24 | Outpatient (CLI) | payer MEDICARE, OTHER, SELFPAY ==
[2021-01-24 10:11] VITALS: BMI 37.9
== END | disposition home or self-care (01) ==
LOC: LABSPEC 14:01
PROVIDERS: PCP Family Medicine; Visit Provider Nurse Practitioner
DX: L98.429 Non-pressure chronic ulcer of back with unspecified severity (principal); T81.31XA Disruption of external operation (surgical) wound, not elsewhere classified, initial encounter; Y83.9 Surgical procedure, unspecified as the cause of abnormal reaction of the patient, or of later complication, without mention of misadventure at the time of the procedure; E66.01 Morbid (severe) obesity due to excess calories; Z68.41 Body mass index [BMI] 40.0-44.9, adult; M48.061 Spinal stenosis, lumbar region without neurogenic claudication; M54.16 Radiculopathy, lumbar region
CPT/HCPCS: 11042; 87070; 87075; 87077; 87205; 99213; G0463

== ENCOUNTER 2021-02-07 11:15 | Outpatient (RCR) | payer MEDICARE, OTHER, SELFPAY ==
[2021-01-24 10:11] VITALS: BP 117/57; PULSE 79; RESP 16; TEMP 36.4; BMI 37.9
--- NOTE | 2021-01-24 12:27 | HP.PCM_ITS ---
History of Present Illness Date of Service: 01/24/21 Chief Complaint: follow up lower back opening History of Wound: Back surgery in 2018 and the wound has never closed. Recently had a abcess and had it drained in the ED .She has been on 3 cycles of antibiotics and currently doing nothing for it. Progress of Wound: The wound itself is small +depth but has tunneling at 12 noon and some undermining along the R lat edge from 1-5 . Was able to squeeze out some white curds material and then mostly blood Debrided with a # 3 tolerated well . [facility] Medical History (Updated 01/24/21 @ 12:38 by Linda Benson NP, SET O TYPE OPERATOR-C) Dehiscence of surgical wound GERD (gastroesophageal reflux disease) Hypertension Morbid obesity with BMI of 40.0-44.9, adult Osteoarthritis Peripheral neuropathy Restless leg syndrome Home Medications potassium chloride 10 meq PO DAILY 06/07/18 [History Last Taken Unknown] gabapentin 300 mg PO TID 06/10/18 [History Last Taken 06/12/18 08:00] multivitamin with folic acid [Thera] 1 tab PO DAILY 08/01/18 [History Last Taken Unknown] Coreg 25 mg PO BID 11/24/18 [History Last Taken Unknown] Levothyroxine 50 mcg PO DAILY 11/24/18 [History Last Taken Unknown] hydrALAZINE 25 mg PO BID 11/24/18 [History Last Taken Unknown] apixaban 5 mg PO BID 08/13/20 [History Last Taken Unknown] baclofen 10 mg PO BID PRN PRN 08/13/20 [History Last Taken Unknown] triamterene-hydrochlorothiazid 1 cap PO DAILY 08/13/20 [History Last Taken Unknown] Allergy/AdvReac Type Severity Reaction Status Date / Time erythromycin base Allergy Rash Verified 12/03/20 19:48 [Erythromycin Base] lisinopril Allergy Swelling Verified 12/03/20 19:48 amlodipine AdvReac Swelling Verified 12/03/20 19:48 latex AdvReac Swelling Verified 12/03/20 19:48 WASP Allergy Other Uncoded 12/03/20 19:48 Family History Mother Hypertension Surgical History History of partial nephrectomy History of tonsillectomy History of total abdominal hysterectomy History of total knee arthroplasty Social History Smoking Status: Never smoker ROS Constitutional Constitutional: Reports systems reviewed and no addt'l complaints, except as documented Eyes Eyes: Reports systems reviewed and no addt'l complaints, except as documented ENT HEENT: Reports systems reviewed and no addt'l complaints, except as documented Cardiovascular Cardiovascular: Reports systems reviewed and no addt'l complaints, except as documented Respiratory/Chest Respiratory/Chest: Reports systems reviewed and no addt'l complaints, except as documented Gastrointestinal Gastrointestinal: Reports systems reviewed and no addt'l complaints, except as documented Genitourinary Genitourinary: Reports systems reviewed and no addt'l complaints, except as documented Musculoskeletal Musculoskeletal: Reports systems reviewed and no addt'l complaints, except as documented Integumentary Integumentary: Reports systems reviewed and no addt'l complaints, except as documented and wounds Neurologic Neurologic: Reports systems reviewed and no addt'l complaints, except as documented Psychiatric Psychiatric: Reports systems reviewed and no addt'l complaints, except as documented Endocrine Endocrinology: Reports systems reviewed and no addt'l complaints, except as documented Hematologic/Lymphatic Hematologic/Lymphatic: Reports systems reviewed and no addt'l complaints, except as documented Allergic/Immunologic Allergic/Immunologic: Reports systems reviewed and no addt'l complaints, except as documented Vital Signs Vital Signs Vital Signs: 01/24/21 10:11 Temperature 97.6 F L Temperature Source Temporal Pulse Rate 79 Respiratory Rate 16 Blood Pressure 117/57 L Blood Pressure Mean 77 Blood Pressure Source Monitor Blood Pressure Location Left Arm Oxygen Delivery Method Room Air Physical Exam Const oriented x3 General Appearance: cooperative Exam Limitations: no limitations HEENT normocephalic Head and Scalp: normal to inspection Face and Sinus: normal facial exam Nose: external nose normal General Ear: hearing grossly impaired External Ear: external ears normal Mouth: oral and palatal mucosa normal Eyes PERRL General Eye: normal appearance of both eyes Neck full ROM General: normal visual inspection Resp normal respiratory effort Effort and Inspection: able to speak in complete sentences Auscultation: clear to auscultation bilaterally Cardio regular rate and regular rhythm Palpation: normal PMI Rate: regular rate Rhythm: regular rhythm GI Auscultation: normoactive bowel sounds Palpation: soft and no hepatosplenomegaly external exam normal Back/Spine Cervical Spine: cervical ROM normal Thoracic Spine / Upper Back: normal to inspection Lumbar Spine / Lower Back: normal to inspection Extremity normal to inspection General Extremity: normal exam except as noted Skin Wounds: wounds noted drainage, no odor, open and No surrounding erythema Neuro oriented x3 Psych Appearance: grossly normal Speech: normal speech Thought Content: normal thought content Judgement: judgement good Debridement Note Debridement Note Post-Debridement Measurements and Additional Note: Post-Debridement Measurements/Treatment CHANDRIKA - Nurse 2 - General Ulcer CM Notes Start: 01/24/21 10:11 Freq: Status: Active Protocol: Activity Type Activity Date Activity User E-Sign Co-Sign Detail Recorded Client Recorded Date Recorded By Document 01/24/21 10:42 MW [id number] 01/24/21 10:49 MW 01/24/21 10:42 Wound Center Nurse 2 #2- MID BACK (OLD INCISION SITE) -Time 10:47 -Correct Patient Yes -Correct Side, Site, Position Yes -Correct Procedure Yes -Procedure Performed Yes -Type of Procedure Debridement -Clinical Debridement Subcutaneous -Tissue Removed Dermis -Post Debridement (cm) - Length 0.8 -Post Debridement (cm) - Width 0.2 -Post Debridement (cm) - Depth 0.4 -Total Square (Post) (cm) 0.16 -Area of Debridement (cm) - Length 0.8 -Area of Debridement (cm) - Width 0.2 -Total Square (Area) (cm) 0.16 -Tunneling Yes -Tunneling Position (O'clock) 1 -Tunneling Distance (cm) 1.6 -Undermining/Tunneling Yes -Undermining/Tunneling Starts (O'clock 12 ) -Undermining/Tunneling Ends (O'clock) 5 -Maximum Distance (cm) 0.3 -Circular Undermining No -Wound/Ulcer Outcome Not Healed -Ulcer Cleansing Rinsed/ Irrigated with Saline -Foul Odor after Cleansing No -Bioengineered Tissue No -Bleeding Controlled with Pressure -Offloading No -Treatment Response Procedure Tolerated Well -Debridement - Subq, 1st 20sq cm Yes Pain Scale: 0-10 Numeric Is Patient Pain Free? Yes CHANDRIKA - Nurse 3 - General Ulcer D/C NN Start: 01/24/21 10:11 Freq: Status: Active Protocol: Activity Type Activity Date Activity User E-Sign Co-Sign Detail Recorded Client Recorded Date Recorded By Document 01/24/21 10:55 [facility] [id number] 01/24/21 10:57 [facility] 01/24/21 10:55 Wound Care Nurse 3 #2- MID BACK (OLD INCISION SITE) -Ulcer Cleansing Rinsed/ Irrigated with Saline -Foul Odor after Cleansing No -Primary Dressing Applied Nugauze, Iodoform -Primary Dressing Covered/Secured with Dry Gauze, Secured with Tape -Nugauze, Iodoform 1/4 1 Treatment Response Procedure Tolerated Well Pain Scale: 0-10 Numeric Is Patient Pain Free? Yes WC - Visit Discharge Discharge Condition Stable Ambulatory Status Ambulatory, Walker Transportation Private Auto Wound debrided: lower mid back Laterality: Not Applicable Type of Debridement: Excisional debridement Anesthesia Used: 5% Lidocaine Gel Depth: Down to and including healthy tissue and in the subcutaneous layer Percentage of wound debrided: 100 Instrument Used: 3mm curette Tissue Removed: slough and fibrin Severity: Fat Layer Exposed Amount of bleeding with debridement: Mild Bleeding Controlled with: Pressure Patient tolerated procedure: Patient tolerated procedure well aerobic and anaerobic cultures obtained Assessment & Plan Assessment/Plan (1) Lumbar spinal stenosis: Status: Chronic Code(s): M48.061 - Spinal stenosis, lumbar region without neurogenic claudication (2) Lumbar radiculopathy: Status: Chronic Code(s): M54.16 - Radiculopathy, lumbar region (3) Morbid obesity with BMI of 40.0-44.9, adult: Status: Chronic Code(s): E66.01 - Morbid (severe) obesity due to excess calories; Z68.41 - Body mass index [BMI]40.0-44.9, adult (4) Dehiscence of surgical wound: Status: Acute Code(s): T81.31XA - Disruption of external operation (surgical) wound, not elsewhere classified, initial encounter Plan: wash the area with Hibiclens Ranulfo with 1/4 inch iodoform gauze cover with gauze and tape follow up 1 week Will call with culture results.
[2021-01-31 10:16] VITALS: BP 109/42; PULSE 68; RESP 16; TEMP 36.6; BMI 37.9
--- NOTE | 2021-01-31 12:21 | PN.PCM_ITS ---
History of Present Illness Date of Service: 01/31/21 Chief Complaint: follow up lower back opening History of Wound: Back surgery in 2018 and the wound has never closed. Recently had a abcess and had it drained in the ED .She has been on 3 cycles of antibiotics and currently doing nothing for it. Progress of Wound: The wound itself is small +depth but has tunneling at 12 noon and some undermining along the R lat edge from 1-5 . Was able to squeeze out some white curds material and then mostly blood Debrided with a # 3 tolerated well . Subjective Subjective Has home health care coming MWF Objective Data Objective Data still has worsening tunneling at 12 noon on the wound . Home health not packing enough. Vital Signs: Vital Signs Temp Pulse Resp BP 97.9 F 68 16 109/42 L 01/31/21 10:16 01/31/21 10:16 01/31/21 10:16 01/31/21 10:16 Oxygen Delivery Method Room Air Weight: 214 lb Body Mass Index (BMI) 37.9 Finger Stick Blood Glucose 122 Assessment & Plan Assessment/Plan (1) Dehiscence of surgical wound: QUALIFIERS: Encounter type: subsequent encounter Qualified Code(s): T81.31XD - Disruption of external operation (surgical) wound, not elsewhere classified, subsequent encounter PLAN: wash the area with hibiclens then pack the wound with iodoform 1/4 inch till filled cover with gauze and tape follow up 1 week (2) Lumbar spinal stenosis: QUALIFIERS: Neurogenic claudication status: with neurogenic claudication Qualified Code(s): M48.062 - Spinal stenosis, lumbar region with neurogenic claudication (3) Morbid obesity: Physical Exam Const oriented x3 General Appearance: cooperative Exam Limitations: no limitations HEENT normocephalic Head and Scalp: normal to inspection Face and Sinus: normal facial exam Nose: external nose normal General Ear: hearing grossly impaired External Ear: external ears normal Mouth: oral and palatal mucosa normal Eyes PERRL General Eye: normal appearance of both eyes Neck full ROM General: normal visual inspection Resp normal respiratory effort Effort and Inspection: able to speak in complete sentences Auscultation: clear to auscultation bilaterally Cardio regular rate and regular rhythm Palpation: normal PMI Rate: regular rate Rhythm: regular rhythm GI Auscultation: normoactive bowel sounds Palpation: soft and no hepatosplenomegaly external exam normal Back/Spine Cervical Spine: cervical ROM normal Thoracic Spine / Upper Back: normal to inspection Lumbar Spine / Lower Back: normal to inspection Extremity normal to inspection General Extremity: normal exam except as noted Skin no rashes or lesions noted Skin Narrative: mid back wound with tunneling Neuro oriented x3 Psych Appearance: grossly normal Speech: normal speech Thought Content: normal thought content Judgement: judgement good Debridement Note Debridement Note Post-Debridement Measurements and Additional Note: Post-Debridement Measurements/Treatment - Nurse 1 - General Ulcer Assessment Start: 01/24/21 10:11 Freq: Status: Active Protocol: .LOWEXT Activity Type Activity Date Activity User E-Sign Co-Sign Detail Recorded Client Recorded Date Recorded By Document 01/24/21 10:11 [facility] [id number] 01/24/21 10:25 [facility] Document 01/31/21 10:16 [facility] [id number] 01/31/21 10:22 [facility] 01/24/21 01/31/21 10:11 10:16 - Today's Visit Information Type of service Initial Visit Follow-up Visit (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/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 ) Arrival Mode Ambulatory, Ambulatory, Walker Walker Transfer Assistance None None Patient Identification Verified (Name & Yes Yes ) Patient Requires Transmission-Based No No Precautions Height and Weight Height 5 ft 3 in Weight 214 lb Weight in Pounds 214.0 lbs Body Mass Index (BMI) 37.9 37.9 BMI Classification Obese Obese BSA - Tory 1.99 Vital Signs Temperature (97.8 F-99.1 F) 97.6 F L 97.9 F Temperature Source Temporal Temporal Pulse Rate (60-100) 79 68 Pulse Location Monitor Monitor Respiratory Rate (12-18) 16 16 Respiratory rate source Observation Observation Oxygen Delivery Method Room Air Room Air Blood Pressure (90/60-120/80) 117/57 L 109/42 L Blood Pressure Mean (mm Hg) 77 64 Source Monitor Monitor Position Sitting Blood Pressure Location Left Arm Left Arm Have you changed medications since your No last visit? Any new allergies or adverse reactions No Had a fall/change in ADL's that may No increase risk of falls Signs or symptoms of abuse and/or No neglect since last visit Have you been in the hospital since your No last visit? Has dressing in place as prescribed Yes Has compression in place as prescribed N/A Has offloadiing in place as prescribed N/A Experienced any changes in pain level or No management History Since Last Visit- (Skip if this is Patient's initial visit) Left Footwear Regular Shoe Regular Shoe Right Footwear Regular Shoe Regular Shoe Pain Scale: 0-10 Numeric Is Patient Pain Free? Yes No WOUND -Description Sharp,Aching -Intensity 3 -Duration (hours) Chronic -Pain Behavior No Change in Behavior -Pain Aggravating Factors Sitting -Alleviating Factors/Interventions Distraction, Will continue to monitor, Patient denies need for intervention, Emotional Support Communication Assessment Preferred language Latvian Atomizer Assembler Required No Able to Read Yes Able to Write Yes Right Hearing Abillity Normal Left Hearing Abillity Normal Visual Assistive Devices Glasses Teaching Assessment Preferences Verbal,Written, Audio/Visual, Demonstration Barriers to Learning None Readiness To Learn Excellent Willingness to Engage in Self Management High Activies Readiness to Engage in Self Management High Activities Anxiety Level Calm Cooperation Cooperative Perception Coherent Interest in Health Problem Asks Questions Education Importance Acknowledges Need Does Patient Smoke tobacco or other No substances Smoking Status Never smoker Is Patient Diabetic No Functional Assessment Recent Decline in Ability to Perform Denies Any Declines Culture/Jain/Fast Food Supervisor Cultural/Jain Needs that may affect No Treatment Plan Teaching: Wound Center *Welcome to the Wound Center -Person Taught Patient -Teaching Method Discussion -Response to teaching Verbalize understanding Welcome to the Wound Care Center English COBOS - Nurse 1 - General Ulcer Measurement Start: 01/24/21 10:11 Freq: Status: Active Protocol: Activity Type Activity Date Activity User E-Sign Co-Sign Detail Recorded Client Recorded Date Recorded By Document 01/24/21 10:11 [facility] [id number] 01/24/21 10:25 [facility] Document 01/31/21 10:16 [facility] [id number] 01/31/21 10:22 [facility] 01/24/21 01/31/21 10:11 10:16 Wound Center Nurse 1 #2- MID BACK (OLD INCISION SITE) -Combined with other wound No No -Current Size (cm) - Length 0.8 0.5 -Current Size (cm) - Width 0.2 0.1 -Current Size (cm) - Depth 0.3 0.4 -Total Square Cm 0.16 0.05 -Date of Last Picture (Recall this 01/24/21 field) -Photo Taken Yes No -Epithelialization None Present None Present -Tunneling No -Undermining/Tunneling Yes -Undermining/Tunneling Starts (O'clock 7 ) -Undermining/Tunneling Ends (O'clock) 3 -Maximum Distance (cm) 0.5 -Circular Undermining No -Exudate Amt Small Large -Exudate Type Sanguineous Serosanguineous -Wound Margin Distinct, Distinct, Outline Outline Attached Attached -Granulation Amt Large (67-100%) Large (67-100%) -Granulation Quality Red Red -Slough/Fibrin No No -Necrosis Amt None Present (0 None Present (0 %) %) -Texture (Kari-wound Skin Appearance) Assessed, Assessed, Scarring Scarring -Moisture (Kari-wound Skin Appearance) Assessed Assessed -Color (Kari-wound Skin Appearance) Assessed Assessed -Temperature (Kari-wound Skin No Abnormality No Abnormality Appearance) (Pt Warm) (Pt Warm) -Tenderness on Palpation (Kari-wound Yes Yes Skin Appearance) -Ulcer Cleansing Rinsed/ Rinsed/ Irrigated with Irrigated with Saline Saline -Foul Odor after Cleansing No No -Anesthetic Used 5% Lidocaine 5% Lidocaine Gel Gel WC - Nurse 2 - General Ulcer CM Notes Start: 01/24/21 10:11 Freq: Status: Active Protocol: Activity Type Activity Date Activity User E-Sign Co-Sign Detail Recorded Client Recorded Date Recorded By Document 01/24/21 10:42 MW [id number] 01/24/21 10:49 MW Document 01/31/21 10:45 MW [id number] 01/31/21 10:49 MW 01/24/21 01/31/21 10:42 10:45 Wound Center Nurse 2 #2- MID BACK (OLD INCISION SITE) -Time 10:47 10:45 -Correct Patient Yes Yes -Correct Side, Site, Position Yes Yes -Correct Procedure Yes Yes -Procedure Performed Yes Yes -Type of Procedure Debridement Debridement -Clinical Debridement Subcutaneous Subcutaneous -Tissue Removed Dermis Subcutaneous -Post Debridement (cm) - Length 0.8 0.7 -Post Debridement (cm) - Width 0.2 0.2 -Post Debridement (cm) - Depth 0.4 0.2 -Total Square (Post) (cm) 0.16 0.14 -Area of Debridement (cm) - Length 0.8 0.7 -Area of Debridement (cm) - Width 0.2 0.2 -Total Square (Area) (cm) 0.16 0.14 -Tunneling Yes Yes -Tunneling Position (O'clock) 1 12 -Tunneling Distance (cm) 1.6 1.8 -Undermining/Tunneling Yes No -Undermining/Tunneling Starts (O'clock 12 ) -Undermining/Tunneling Ends (O'clock) 5 -Maximum Distance (cm) 0.3 -Circular Undermining No No -Wound/Ulcer Outcome Not Healed Not Healed -Ulcer Cleansing Rinsed/ Rinsed/ Irrigated with Irrigated with Saline Saline -Foul Odor after Cleansing No No -Bioengineered Tissue No No -Bleeding Controlled with Pressure -Offloading No -Treatment Response Procedure Procedure Tolerated Well Tolerated Well -Debridement - Subq, 1st 20sq cm Yes Yes Pain Scale: 0-10 Numeric Is Patient Pain Free? Yes Yes - Nurse 3 - General Ulcer D/C NN Start: 01/24/21 10:11 Freq: Status: Active Protocol: Activity Type Activity Date Activity User E-Sign Co-Sign Detail Recorded Client Recorded Date Recorded By Document 01/24/21 10:55 [facility] [id number] 01/24/21 10:57 [facility] Document 01/31/21 10:56 [facility] [id number] 01/31/21 10:56 [facility] 01/24/21 01/31/21 10:55 10:56 Wound Care Nurse 3 #2- MID BACK (OLD INCISION SITE) -Ulcer Cleansing Rinsed/ Rinsed/ Irrigated with Irrigated with Saline Saline -Foul Odor after Cleansing No No -Primary Dressing Applied Nugauze, Nugauze, Iodoform Iodoform -Primary Dressing Covered/Secured with Dry Gauze, Dry Gauze, Secured with Secured with Tape Tape -Other Covering DRSG PER KR WHEEL BORER -Nugauze, Iodoform 09/25 1 1 Treatment Response Procedure Procedure Tolerated Well Tolerated Well Pain Scale: 0-10 Numeric Is Patient Pain Free? Yes Yes - Visit Discharge Discharge Condition Stable Stable Ambulatory Status Ambulatory, Ambulatory, Walker Walker Transportation Private Auto Private Auto Wound debrided: mid back wound Type of Debridement: Excisional debridement Anesthesia Used: 5% Lidocaine Gel Depth: in the subcutaneous layer Percentage of wound debrided: 100 Instrument Used: 3mm curette Tissue Removed: fibrin Severity: Limited To Skin Breakdown Amount of bleeding with debridement: Mild Bleeding Controlled with: Pressure Patient tolerated procedure: Patient tolerated procedure well
[2021-02-07 11:21] VITALS: BP 147/81; PULSE 79; RESP 16; TEMP 37; BMI 37.9
--- NOTE | 2021-02-07 13:24 | PCM.WC.PN ---
History of Present Illness Date of Service: 02/08/21 Chief Complaint: follow up lower back opening History of Wound: Back surgery in 2018 and the wound has never closed. Recently had a abcess and had it drained in the ED .She has been on 3 cycles of antibiotics and currently doing nothing for it. Progress of Wound: The wound itself is small +depth but has tunneling at 12 noon and some undermining along the R lat edge from 1-5 . Was able to squeeze out some white curds material and then mostly blood Debrided with a # 3 tolerated well . 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 Vital Signs: Vital Signs Temp Pulse Resp BP 98.6 F 79 16 147/81 H 02/07/21 11:21 02/07/21 11:21 02/07/21 11:21 02/07/21 11:21 Oxygen Delivery Method Room Air Weight: 214 lb Body Mass Index (BMI) 37.9 Physical Exam Const oriented x3 General Appearance: cooperative Exam Limitations: no limitations HEENT normocephalic Head and Scalp: normal to inspection Face and Sinus: normal facial exam Nose: external nose normal General Ear: hearing grossly impaired External Ear: external ears normal Mouth: oral and palatal mucosa normal Eyes PERRL General Eye: normal appearance of both eyes Neck full ROM General: normal visual inspection Resp normal respiratory effort Effort and Inspection: able to speak in complete sentences Auscultation: clear to auscultation bilaterally Cardio regular rate and regular rhythm Palpation: normal PMI Rate: regular rate Rhythm: regular rhythm GI Auscultation: normoactive bowel sounds Palpation: soft and no hepatosplenomegaly external exam normal Back/Spine Cervical Spine: cervical ROM normal Thoracic Spine / Upper Back: normal to inspection Lumbar Spine / Lower Back: normal to inspection Extremity normal to inspection General Extremity: normal exam except as noted Skin no rashes or lesions noted Neuro oriented x3 Psych Appearance: grossly normal Speech: normal speech Thought Content: normal thought content Judgement: judgement good Debridement Note Debridement Note Post-Debridement Measurements and Additional Note: Post-Debridement Measurements/Treatment WC - Nurse 1 - General Ulcer Assessment Start: 01/24/21 10:11 Freq: Status: Active Protocol: WC.LOWEXT Activity Type Activity Date Activity User E-Sign Co-Sign Detail Recorded Client Recorded Date Recorded By Document 01/24/21 10:11 [facility] [id number] 01/24/21 10:25 [facility] Document 01/31/21 10:16 [facility] [id number] 01/31/21 10:22 [facility] Document 02/07/21 11:21 [facility] [id number] 02/07/21 11:27 [facility] 01/24/21 01/31/21 02/07/21 10:11 10:16 11:21 - Today's Visit Information Type of service Initial Visit Follow-up Visit Follow-up Visit (Physician/IT SECURITY ENGINEER (Physician/IT SECURITY ENGINEER ) ) Arrival Mode Ambulatory, Ambulatory, Ambulatory, Walker Walker Walker Transfer Assistance None None None Patient Identification Verified (Name & Yes Yes Yes ) Patient Requires Transmission-Based No No No Precautions Height and Weight Height 5 ft 3 in Weight 214 lb Weight in Pounds 214.0 lbs Body Mass Index (BMI) 37.9 37.9 37.9 BMI Classification Obese Obese Obese BSA - Tory 1.99 Vital Signs Temperature (97.8 F-99.1 F) 97.6 F L 97.9 F 98.6 F Temperature Source Temporal Temporal Temporal Pulse Rate (60-100) 79 68 79 Pulse Location Monitor Monitor Monitor Respiratory Rate (12-18) 16 16 16 Respiratory rate source Observation Observation Observation Oxygen Delivery Method Room Air Room Air Room Air Blood Pressure (90/60-120/80) 117/57 L 109/42 L 147/81 H Blood Pressure Mean (mm Hg) 77 64 103 Source Monitor Monitor Monitor Position Sitting Sitting Blood Pressure Location Left Arm Left Arm Left Arm Have you changed medications since your No No last visit? Any new allergies or adverse reactions No No Had a fall/change in ADL's that may No No increase risk of falls Signs or symptoms of abuse and/or No No neglect since last visit Have you been in the hospital since your No No last visit? Has dressing in place as prescribed Yes Yes Has compression in place as prescribed N/A N/A Has offloadiing in place as prescribed N/A N/A Experienced any changes in pain level or No No management History Since Last Visit- (Skip if this is Patient's initial visit) Left Footwear Regular Shoe Regular Shoe Regular Shoe Right Footwear Regular Shoe Regular Shoe Regular Shoe Pain Scale: 0-10 Numeric Is Patient Pain Free? Yes No Yes WOUND -Description Sharp,Aching -Intensity 3 -Duration (hours) Chronic -Pain Behavior No Change in Behavior -Pain Aggravating Factors Sitting -Alleviating Factors/Interventions Distraction, Will continue to monitor, Patient denies need for intervention, Emotional Support Communication Assessment Preferred language Ukrainian Remote Broadcast Engineer Required No Able to Read Yes Able to Write Yes Right Hearing Abillity Normal Left Hearing Abillity Normal Visual Assistive Devices Glasses Teaching Assessment Preferences Verbal,Written, Audio/Visual, Demonstration Barriers to Learning None Readiness To Learn Excellent Willingness to Engage in Self Management High Activies Readiness to Engage in Self Management High Activities Anxiety Level Calm Cooperation Cooperative Perception Coherent Interest in Health Problem Asks Questions Education Importance Acknowledges Need Does Patient Smoke tobacco or other No substances Smoking Status Never smoker Is Patient Diabetic No Functional Assessment Recent Decline in Ability to Perform Denies Any Declines Culture/Jainism/Tin Flipper Cultural/Jainism Needs that may affect No Treatment Plan Teaching: Wound Center *Welcome to the Wound Center -Person Taught Patient -Teaching Method Discussion -Response to teaching Verbalize understanding Welcome to the Wound Care Center English [place] - Nurse 1 - General Ulcer Measurement Start: 01/24/21 10:11 Freq: Status: Active Protocol: Activity Type Activity Date Activity User E-Sign Co-Sign Detail Recorded Client Recorded Date Recorded By Document 01/24/21 10:11 [facility] [id number] 01/24/21 10:25 [facility] Document 01/31/21 10:16 [facility] [id number] 01/31/21 10:22 [facility] Document 02/07/21 11:21 [facility] [id number] 02/07/21 11:27 [facility] 01/24/21 01/31/21 02/07/21 10:11 10:16 11:21 Wound Center Nurse 1 #2- MID BACK (OLD INCISION SITE) -Combined with other wound No No No -Current Size (cm) - Length 0.8 0.5 0.6 -Current Size (cm) - Width 0.2 0.1 0.3 -Current Size (cm) - Depth 0.3 0.4 0.4 -Total Square Cm 0.16 0.05 0.18 -Date of Last Picture (Recall this 01/24/21 field) -Photo Taken Yes No No -Epithelialization None Present None Present None Present -Tunneling No Yes -Tunneling Position (O'clock) 12 -Tunneling Distance (cm) 1.5 -Undermining/Tunneling Yes No -Undermining/Tunneling Starts (O'clock 7 ) -Undermining/Tunneling Ends (O'clock) 3 -Maximum Distance (cm) 0.5 -Circular Undermining No No -Exudate Amt Small Large Large -Exudate Type Sanguineous Serosanguineous Serosanguineous -Wound Margin Distinct, Distinct, Distinct, Outline Outline Outline Attached Attached Attached -Granulation Amt Large (67-100%) Large (67-100%) Large (67-100%) -Granulation Quality Red Red -Slough/Fibrin No No No -Necrosis Amt None Present (0 None Present (0 None Present (0 %) %) %) -Texture (Kari-wound Skin Appearance) Assessed, Assessed, Assessed Scarring Scarring -Moisture (Kari-wound Skin Appearance) Assessed Assessed Assessed -Color (Kari-wound Skin Appearance) Assessed Assessed Assessed -Temperature (Kari-wound Skin No Abnormality No Abnormality No Abnormality Appearance) (Pt Warm) (Pt Warm) (Pt Warm) -Tenderness on Palpation (Kari-wound Yes Yes Yes Skin Appearance) -Ulcer Cleansing Rinsed/ Rinsed/ Rinsed/ Irrigated with Irrigated with Irrigated with Saline Saline Saline -Foul Odor after Cleansing No No No -Anesthetic Used 5% Lidocaine 5% Lidocaine 5% Lidocaine Gel Gel Gel WC - Nurse 2 - General Ulcer CM Notes Start: 01/24/21 10:11 Freq: Status: Active Protocol: Activity Type Activity Date Activity User E-Sign Co-Sign Detail Recorded Client Recorded Date Recorded By Document 01/24/21 10:42 MW [id number] 01/24/21 10:49 MW Document 01/31/21 10:45 MW [id number] 01/31/21 10:49 MW Document 02/07/21 11:32 MW [id number] 02/07/21 11:34 MW 01/24/21 01/31/21 02/07/21 10:42 10:45 11:32 Wound Center Nurse 2 #2- MID BACK (OLD INCISION SITE) -Time 10:47 10:45 11:33 -Correct Patient Yes Yes Yes -Correct Side, Site, Position Yes Yes Yes -Correct Procedure Yes Yes Yes -Procedure Performed Yes Yes Yes -Type of Procedure Debridement Debridement Debridement -Clinical Debridement Subcutaneous Subcutaneous Subcutaneous -Tissue Removed Dermis Subcutaneous Subcutaneous -Post Debridement (cm) - Length 0.8 0.7 0.7 -Post Debridement (cm) - Width 0.2 0.2 0.4 -Post Debridement (cm) - Depth 0.4 0.2 0.2 -Total Square (Post) (cm) 0.16 0.14 0.28 -Area of Debridement (cm) - Length 0.8 0.7 0.7 -Area of Debridement (cm) - Width 0.2 0.2 0.4 -Total Square (Area) (cm) 0.16 0.14 0.28 -Tunneling Yes Yes Yes -Tunneling Position (O'clock) 1 12 12 -Tunneling Distance (cm) 1.6 1.8 1.5 -Undermining/Tunneling Yes No No -Undermining/Tunneling Starts (O'clock 12 ) -Undermining/Tunneling Ends (O'clock) 5 -Maximum Distance (cm) 0.3 -Circular Undermining No No No -Wound/Ulcer Outcome Not Healed Not Healed Not Healed -Ulcer Cleansing Rinsed/ Rinsed/ Rinsed/ Irrigated with Irrigated with Irrigated with Saline Saline Saline -Foul Odor after Cleansing No No No -Bioengineered Tissue No No No -Bleeding Controlled with Pressure Pressure -Offloading No No -Treatment Response Procedure Procedure Procedure Tolerated Well Tolerated Well Tolerated Well -Debridement - Subq, 1st 20sq cm Yes Yes Yes Pain Scale: 0-10 Numeric Is Patient Pain Free? Yes Yes Yes WC - Nurse 3 - General Ulcer D/C NN Start: 01/24/21 10:11 Freq: Status: Active Protocol: Activity Type Activity Date Activity User E-Sign Co-Sign Detail Recorded Client Recorded Date Recorded By Document 01/24/21 10:55 [facility] [id number] 01/24/21 10:57 [facility] Document 01/31/21 10:56 [facility] [id number] 01/31/21 10:56 [facility] 01/24/21 01/31/21 10:55 10:56 Wound Care Nurse 3 #2- MID BACK (OLD INCISION SITE) -Ulcer Cleansing Rinsed/ Rinsed/ Irrigated with Irrigated with Saline Saline -Foul Odor after Cleansing No No -Primary Dressing Applied Nugauze, Nugauze, Iodoform Iodoform -Primary Dressing Covered/Secured with Dry Gauze, Dry Gauze, Secured with Secured with Tape Tape -Other Covering DRSG PER KR PASSENGER VESSEL CHEF -Nugauze, Iodoform 1/4 1 1 Treatment Response Procedure Procedure Tolerated Well Tolerated Well Pain Scale: 0-10 Numeric Is Patient Pain Free? Yes Yes WC - Visit Discharge Discharge Condition Stable Stable Ambulatory Status Ambulatory, Ambulatory, Walker Walker Transportation Private Auto Private Auto Wound debrided: mid back nonhealing wound Type of Debridement: Excisional debridement Anesthesia Used: 5% Lidocaine Gel Depth: Down to and including healthy tissue Percentage of wound debrided: 100 Instrument Used: 3mm curette Severity: Fat Layer Exposed (tunneling at 12 smaller) Amount of bleeding with debridement: Moderate Bleeding Controlled with: Compression and gauze Patient tolerated procedure: Patient tolerated procedure well Assessment/Plan Assessment/Plan (1) Dehiscence of surgical wound: CODE(S): Code(s): T81.31XA - Disruption of external operation (surgical) wound, not elsewhere classified, initial encounter QUALIFIERS: Encounter type: subsequent encounter Qualified Code(s): T81.31XD - Disruption of external operation (surgical) wound, not elsewhere classified, subsequent encounter PLAN: continue the packing of the wound with Iodorform 1/4 inch and cover with gauze dresssing follow up 2 weeks finish the metronidazole (2) Osteoarthritis: CODE(S): Code(s): M19.90 - Unspecified osteoarthritis, unspecified site QUALIFIERS: Osteoarthritis location: multiple joints Osteoarthritis type: primary Qualified Code(s): M89.49 - Other hypertrophic osteoarthropathy, multiple sites (3) Lumbar spinal stenosis: CODE(S): Code(s): M48.061 - Spinal stenosis, lumbar region without neurogenic claudication QUALIFIERS: Neurogenic claudication status: with neurogenic claudication Qualified Code(s): M48.062 - Spinal stenosis, lumbar region with neurogenic claudication (4) Morbid obesity with BMI of 40.0-44.9, adult: CODE(S): Code(s): E66.01 - Morbid (severe) obesity due to excess calories; Z68.41 - Body mass index [BMI]40.0-44.9, adult
== END 2021-02-19 23:59 ==
LOC: WC 11:15
PROVIDERS: PCP Family Medicine; Visit Provider Nurse Practitioner
DX: T81.31XA Disruption of external operation (surgical) wound, not elsewhere classified, initial encounter (principal); Y83.9 Surgical procedure, unspecified as the cause of abnormal reaction of the patient, or of later complication, without mention of misadventure at the time of the procedure; E66.01 Morbid (severe) obesity due to excess calories; Z68.41 Body mass index [BMI] 40.0-44.9, adult; M54.16 Radiculopathy, lumbar region; M48.061 Spinal stenosis, lumbar region without neurogenic claudication
CPT/HCPCS: 11042; 99213; G0463

== ENCOUNTER 2021-03-21 10:15 | Outpatient (RCR) | payer MEDICARE, OTHER, SELFPAY ==
[2021-02-20 00:39] VITALS: BP 147/81; PULSE 79; RESP 16; TEMP 37
[2021-02-21 10:30] VITALS: BP 114/56; PULSE 66; TEMP 35.9; BMI 37.9
--- NOTE | 2021-02-21 12:32 | PCM.WC.PN ---
History of Present Illness Date of Service: 02/21/21 Chief Complaint: follow up lower back opening History of Wound: Back surgery in 2018 and the wound has never closed. Recently had a abcess and had it drained in the ED .She has been on 3 cycles of antibiotics and currently doing nothing for it. Subjective Subjective Patient states less burning feels better Objective Data Objective Data The opening is about the same or smaller but the undermining is larger underneath. Home health care is doing the packing and needless to say I do not think they are using enough we will switch to a wider with half-inch from 1/4 inch and see if packing will be easier. Vital Signs: Vital Signs Temp Pulse Resp BP 96.7 F L 66 16 114/56 L 02/21/21 10:30 02/21/21 10:30 02/20/21 00:39 02/21/21 10:30 Weight: 214 lb Body Mass Index (BMI) 37.9 Physical Exam Const oriented x3 General Appearance: cooperative Exam Limitations: no limitations Resp normal respiratory effort Effort and Inspection: able to speak in complete sentences Auscultation: clear to auscultation bilaterally Cardio regular rate and regular rhythm Palpation: normal PMI Rate: regular rate Rhythm: regular rhythm Back/Spine Cervical Spine: cervical ROM normal Thoracic Spine / Upper Back: normal to inspection Lumbar Spine / Lower Back: normal to inspection Extremity normal to inspection General Extremity: normal exam except as noted Skin no rashes or lesions noted Neuro oriented x3 Psych Appearance: grossly normal Speech: normal speech Thought Content: normal thought content Judgement: judgement good Debridement Note Debridement Note Post-Debridement Measurements and Additional Note: Post-Debridement Measurements/Treatment - Nurse 1 - General Ulcer Assessment Start: 02/21/21 10:03 Freq: Status: Active Protocol: WC.LOWEXT Activity Type Activity Date Activity User E-Sign Co-Sign Detail Recorded Client Recorded Date Recorded By Document 02/21/21 10:30 FAYE [id number] 02/21/21 10:31 FAYE 02/21/21 10:30 - Today's Visit Information Type of service Follow-up Visit (Physician/[facility] ADMINISTRATOR ) Arrival Mode Ambulatory, Walker Patient Identification Verified (Name & Yes ) Height and Weight Body Mass Index (BMI) 37.9 BMI Classification Obese Vital Signs Temperature (97.8 F-99.1 F) 96.7 F L Temperature Source Temporal Pulse Rate (60-100) 66 Pulse Location Monitor Blood Pressure (90/60-120/80) 114/56 L Blood Pressure Mean (mm Hg) 75 Source Monitor Position Semi-Fowlers Blood Pressure Location Right Arm History Since Last Visit- (Skip if this is Patient's initial visit) Have you changed medications since your No last visit? Any new allergies or adverse reactions No Had a fall/change in ADL's that may No increase risk of falls Signs or symptoms of abuse and/or No neglect since last visit Have you been in the hospital since your No last visit? Has dressing in place as prescribed Yes Has compression in place as prescribed N/A Has offloadiing in place as prescribed N/A Experienced any changes in pain level or No management Left Footwear Regular Shoe Right Footwear Regular Shoe Pain Scale: 0-10 Numeric Is Patient Pain Free? Yes WC - Nurse 1 - General Ulcer Measurement Start: 02/21/21 10:03 Freq: Status: Active Protocol: Activity Type Activity Date Activity User E-Sign Co-Sign Detail Recorded Client Recorded Date Recorded By Document 02/21/21 10:30 FAYE [id number] 02/21/21 10:31 FAYE 02/21/21 10:30 Wound Center Nurse 1 #2- MID BACK (OLD INCISION SITE) -Current Size (cm) - Length 0.5 -Current Size (cm) - Width 0.4 -Current Size (cm) - Depth 0.2 -Total Square Cm 0.20 -Tunneling Position (O'clock) 12 -Tunneling Distance (cm) 1.6 -Exudate Amt Small -Exudate Type Yellow/Green -Wound Margin Distinct, Outline Attached -Granulation Amt Small (1-33%) -Granulation Quality Red -Necrosis Amt Small (1-33%) -Necrotic Tissue Type Adherent Slough -Texture (Kari-wound Skin Appearance) Assessed, Scarring -Moisture (Kari-wound Skin Appearance) No Abnormality, Assessed -Color (Kari-wound Skin Appearance) No Abnormality, Assessed -Temperature (Kari-wound Skin No Abnormality Appearance) (Pt Warm) -Tenderness on Palpation (Kari-wound No Skin Appearance) -Ulcer Cleansing Rinsed/ Irrigated with Saline -Foul Odor after Cleansing No -Anesthetic Used 5% Lidocaine Gel WC - Nurse 2 - General Ulcer CM Notes Start: 02/21/21 10:03 Freq: Status: Active Protocol: Activity Type Activity Date Activity User E-Sign Co-Sign Detail Recorded Client Recorded Date Recorded By Document 02/21/21 10:04 MW [id number] 02/21/21 10:08 MW 02/21/21 10:04 Wound Center Nurse 2 -Time 10:04 -Correct Patient Yes -Correct Side, Site, Position Yes -Correct Procedure Yes -Procedure Performed Yes -Type of Procedure Debridement -Clinical Debridement Subcutaneous -Tissue Removed Subcutaneous -Post Debridement (cm) - Length 0.6 -Post Debridement (cm) - Width 0.4 -Post Debridement (cm) - Depth 0.2 -Total Square (Post) (cm) 0.24 -Area of Debridement (cm) - Length 0.6 -Area of Debridement (cm) - Width 0.4 -Total Square (Area) (cm) 0.24 -Tunneling Yes -Tunneling Position (O'clock) 12 -Tunneling Distance (cm) 1.9 -Undermining/Tunneling No -Circular Undermining No -Wound/Ulcer Outcome Not Healed -Ulcer Cleansing Rinsed/ Irrigated with Saline -Foul Odor after Cleansing No -Bioengineered Tissue No -Bleeding Controlled with Pressure -Offloading No -Treatment Response Procedure Tolerated Well -Debridement - Subq, 1st 20sq cm Yes Pain Scale: 0-10 Numeric Is Patient Pain Free? Yes WC - Nurse 3 - General Ulcer D/C NN Start: 02/21/21 10:03 Freq: Status: Active Protocol: Activity Type Activity Date Activity User E-Sign Co-Sign Detail Recorded Client Recorded Date Recorded By Document 02/21/21 10:08 MW [id number] 02/21/21 10:09 MW 02/21/21 10:08 Wound Care Nurse 3 #2- MID BACK (OLD INCISION SITE) -Ulcer Cleansing Rinsed/ Irrigated with Saline -Foul Odor after Cleansing No -Negative Pressure Wound Therapy N/A -Primary Dressing Applied Nugauze, Iodoform -Primary Dressing Covered/Secured with Dry Gauze, Secured with Tape -Nugauze, Iodoform / 1 Treatment Response Procedure Tolerated Well Teaching: Wound Center Dressing Your Wound -Person Taught Patient -Teaching Method Discussion, Demonstration -Response to teaching Verbalize understanding WC - Visit Discharge Discharge Condition Stable Ambulatory Status Ambulatory, Walker Transportation Private Auto Accompanied by self Medication Reconcilliation completed & No provided to patient/care provider Clinical Summary of Care Provided Yes Wound debrided: Mid back old incision site dehisced Type of Debridement: Excisional debridement Anesthesia Used: 5% Lidocaine Gel Depth: in the subcutaneous layer Percentage of wound debrided: 100 Instrument Used: 3mm curette Tissue Removed: Fibrin Severity: Fat Layer Exposed Amount of bleeding with debridement: Mild Bleeding Controlled with: Compression and gauze Patient tolerated procedure: Patient tolerated procedure well Assessment/Plan Assessment/Plan (1) Dehiscence of surgical wound: CODE(S): T81.31XA - Disruption of external operation (surgical) wound, not elsewhere classified, initial encounter QUALIFIERS: Encounter type: subsequent encounter Qualified Code(s): T81.31XD - Disruption of external operation (surgical) wound, not elsewhere classified, subsequent encounter PLAN: Wash area with antibacterial soap packed with half-inch iodoform gauze cover with Adaptic gauze and tape Follow-up in 1 week (2) Lumbar spinal stenosis: CODE(S): M48.061 - Spinal stenosis, lumbar region without neurogenic claudication QUALIFIERS: Neurogenic claudication status: with neurogenic claudication Qualified Code(s): M48.062 - Spinal stenosis, lumbar region with neurogenic claudication
[2021-02-28 10:16] VITALS: BP 113/55; PULSE 72; TEMP 35.9; BMI 37.9
--- NOTE | 2021-02-28 13:03 | PN.PCM_ITS ---
History of Present Illness Date of Service: 02/28/21 Chief Complaint: follow up lower back opening History of Wound: Back surgery in 2018 and the wound has never closed. Recently had a abcess and had it drained in the ED .She has been on 3 cycles of antibiotics and currently doing nothing for it. Subjective Subjective c/o chills rigors for the past 2 days no other symptoms Objective Data Objective Data wound looks good no sign of infection no redness or swelling ,bleeds easily . Vital Signs: Vital Signs Temp Pulse Resp BP 96.7 F L 72 16 113/55 L 02/28/21 10:16 02/28/21 10:16 02/20/21 00:39 02/28/21 10:16 Weight: 214 lb Body Mass Index (BMI) 37.9 Physical Exam Const oriented x3 General Appearance: cooperative Exam Limitations: no limitations HEENT normocephalic Head and Scalp: normal to inspection Face and Sinus: normal facial exam Nose: external nose normal General Ear: hearing grossly impaired External Ear: external ears normal Mouth: oral and palatal mucosa normal Eyes PERRL General Eye: normal appearance of both eyes Neck full ROM General: normal visual inspection Resp normal respiratory effort Effort and Inspection: able to speak in complete sentences Auscultation: clear to auscultation bilaterally Cardio regular rate and regular rhythm Palpation: normal PMI Rate: regular rate Rhythm: regular rhythm GI Auscultation: normoactive bowel sounds Palpation: soft and no hepatosplenomegaly external exam normal Back/Spine Cervical Spine: cervical ROM normal Thoracic Spine / Upper Back: normal to inspection Lumbar Spine / Lower Back: normal to inspection Extremity normal to inspection General Extremity: normal exam except as noted Skin no rashes or lesions noted Neuro oriented x3 Psych Appearance: grossly normal Speech: normal speech Thought Content: normal thought content Judgement: judgement good Debridement Note Debridement Note Post-Debridement Measurements and Additional Note: Post-Debridement Measurem ents/Treatment CHANDRIKA - Nurse 1 - General Ulcer Assessment Start: 02/21/21 10:03 Freq: Status: Active Protocol: PANKAJ Activity Type Activity Date Activity User E-Sign Co-Sign Detail Recorded Client Recorded Date Recorded By Document 02/21/21 10:30 FAYE [id number] 02/21/21 10:31 KR Document 02/28/21 10:16 FAYE [id number] 02/28/21 10:20 KR 02/21/21 02/28/21 10:30 10:16 - Today's Visit Information Type of service Follow-up Visit Follow-up Visit (Physician/PHOTO MASK INSPECTOR (Physician/PHOTO MASK INSPECTOR ) ) Arrival Mode Ambulatory, Ambulatory Walker Patient Identification Verified (Name & Yes Yes ) Height and Weight Body Mass Index (BMI) 37.9 37.9 BMI Classification Obese Obese Vital Signs Temperature (97.8 F-99.1 F) 96.7 F L 96.7 F L Temperature Source Temporal Temporal Pulse Rate (60-100) 66 72 Pulse Location Monitor Monitor Blood Pressure (90/60-120/80) 114/56 L 113/55 L Blood Pressure Mean (mm Hg) 75 74 Source Monitor Monitor Position Semi-Fowlers Semi-Fowlers Blood Pressure Location Right Arm Right Arm History Since Last Visit- (Skip if this is Patient's initial visit) Have you changed medications since your No No last visit? Any new allergies or adverse reactions No No Had a fall/change in ADL's that may No No increase risk of falls Signs or symptoms of abuse and/or No No neglect since last visit Have you been in the hospital since your No No last visit? Has dressing in place as prescribed Yes Yes Has compression in place as prescribed N/A N/A Has offloadiing in place as prescribed N/A N/A Experienced any changes in pain level or No No management Left Footwear Regular Shoe Regular Shoe Right Footwear Regular Shoe Regular Shoe Pain Scale: 0-10 Numeric Is Patient Pain Free? Yes Yes - Nurse 1 - General Ulcer Measurement Start: 02/21/21 10:03 Freq: Status: Active Protocol: Activity Type Activity Date Activity User E-Sign Co-Sign Detail Recorded Client Recorded Date Recorded By Document 02/21/21 10:30 FAYE [id number] 02/21/21 10:31 KR Document 02/28/21 10:16 FAYE [id number] 02/28/21 10:20 FAYE 02/21/21 02/28/21 10:30 10:16 Wound Center Nurse 1 #2- MID BACK (OLD INCISION SITE) -Current Size (cm) - Length 0.5 0.6 -Current Size (cm) - Width 0.4 0.3 -Current Size (cm) - Depth 0.2 0.2 -Total Square Cm 0.20 0.18 -Tunneling Position (O'clock) 12 2 -Tunneling Distance (cm) 1.6 1.8 -Exudate Amt Small Medium -Exudate Type Yellow/Green Serosanguineous -Wound Margin Distinct, Distinct, Outline Outline Attached Attached -Granulation Amt Small (1-33%) Medium (34-66%) -Granulation Quality Red Red -Necrosis Amt Small (1-33%) Medium (34-66%) -Necrotic Tissue Type Adherent Slough Adherent Slough -Texture (Kari-wound Skin Appearance) Assessed, Assessed, Scarring Scarring -Moisture (Kari-wound Skin Appearance) No Abnormality, No Abnormality, Assessed Assessed -Color (Kari-wound Skin Appearance) No Abnormality, No Abnormality, Assessed Assessed -Temperature (Kari-wound Skin No Abnormality No Abnormality Appearance) (Pt Warm) (Pt Warm) -Tenderness on Palpation (Kari-wound No No Skin Appearance) -Ulcer Cleansing Rinsed/ Rinsed/ Irrigated with Irrigated with Saline Saline -Foul Odor after Cleansing No No -Anesthetic Used 5% Lidocaine 5% Lidocaine Gel Gel WC - Nurse 2 - General Ulcer CM Notes Start: 02/21/21 10:03 Freq: Status: Active Protocol: Activity Type Activity Date Activity User E-Sign Co-Sign Detail Recorded Client Recorded Date Recorded By Document 02/21/21 10:04 MW [id number] 02/21/21 10:08 MW Document 02/28/21 10:40 MW [id number] 02/28/21 12:20 MW 02/21/21 02/28/21 10:04 10:40 Wound Center Nurse 2 #2- MID BACK (OLD INCISION SITE) -Time 10:04 10:40 -Correct Patient Yes Yes -Correct Side, Site, Position Yes Yes -Correct Procedure Yes Yes -Procedure Performed Yes Yes -Type of Procedure Debridement Debridement -Clinical Debridement Subcutaneous Subcutaneous -Tissue Removed Subcutaneous Subcutaneous -Post Debridement (cm) - Length 0.6 0.6 -Post Debridement (cm) - Width 0.4 0.3 -Post Debridement (cm) - Depth 0.2 0.2 -Total Square (Post) (cm) 0.24 0.18 -Area of Debridement (cm) - Length 0.6 0.6 -Area of Debridement (cm) - Width 0.4 0.3 -Total Square (Area) (cm) 0.24 0.18 -Tunneling Yes No -Tunneling Position (O'clock) 12 12 -Tunneling Distance (cm) 1.9 1.0 -Undermining/Tunneling No No -Circular Undermining No No -Wound/Ulcer Outcome Not Healed Not Healed -Ulcer Cleansing Rinsed/ Rinsed/ Irrigated with Irrigated with Saline Saline -Foul Odor after Cleansing No No -Bioengineered Tissue No No -Bleeding Controlled with Pressure Pressure -Offloading No No -Treatment Response Procedure Procedure Tolerated Well Tolerated Well -Debridement - Subq, 1st 20sq cm Yes Yes Pain Scale: 0-10 Numeric Is Patient Pain Free? Yes Yes - Nurse 3 - General Ulcer D/C NN Start: 02/21/21 10:03 Freq: Status: Active Protocol: Activity Type Activity Date Activity User E-Sign Co-Sign Detail Recorded Client Recorded Date Recorded By Document 02/21/21 10:08 MW [id number] 02/21/21 10:09 MW Document 02/28/21 11:25 KR [id number] 02/28/21 11:25 KR 02/21/21 02/28/21 10:08 11:25 Wound Care Nurse 3 #2- MID BACK (OLD INCISION SITE) -Ulcer Cleansing Rinsed/ Rinsed/ Irrigated with Irrigated with Saline Saline -Foul Odor after Cleansing No -Negative Pressure Wound Therapy N/A -Primary Dressing Applied Nugauze, Iodoform -Primary Dressing Covered/Secured with Dry Gauze, Dry Gauze, Secured with Secured with Tape Tape -Nugauze, Iodoform 1/4 1 Treatment Response Procedure Tolerated Well Pain Scale: 0-10 Numeric Is Patient Pain Free? Yes Teaching: Wound Center Dressing Your Wound -Person Taught Patient -Teaching Method Discussion, Demonstration -Response to teaching Verbalize understanding WC - Visit Discharge Discharge Condition Stable Stable Ambulatory Status Ambulatory, Walker Walker Transportation Private Auto Private Auto Accompanied by self Medication Reconcilliation completed & No provided to patient/care provider Clinical Summary of Care Provided Yes Wound debrided: mid back surgical dehisced Type of Debridement: Excisional debridement Anesthesia Used: 5% Lidocaine Gel Depth: Down to and including healthy tissue and in the subcutaneous layer Percentage of wound debrided: 100 Instrument Used: 5mm curette Severity: Fat Layer Exposed Amount of bleeding with debridement: Mild Bleeding Controlled with: Compression and gauze Patient tolerated procedure: Patient tolerated procedure well Assessment/Plan Assessment/Plan (1) Dehiscence of surgical wound: CODE(S): T81.31XA - Disruption of external operation (surgical) wound, not elsewhere classified, initial encounter QUALIFIERS: Encounter type: subsequent encounter Qualified Code(s): T81.31XD - Disruption of external operation (surgical) wound, not else where classified, subsequent encounter PLAN: Wash the area with antibacteria soap and pack with iodoform gauze everyday 1/2 inch wide \cover with dry 2x2 dressing follow up 1 week (2) Lumbar spinal stenosis: CODE(S): M48.061 - Spinal stenosis, lumbar region without neurogenic claudication QUALIFIERS: Neurogenic claudication status: with neurogenic claudication Qualified Code(s): M48.062 - Spinal stenosis, lumbar region with neurogenic claudication (3) Morbid obesity with BMI of 40.0-44.9, adult: CODE(S): E66.01 - Morbid (severe) obesity due to excess calories; Z68.41 - Body mass index [BMI]40.0-44.9, adult
[2021-03-07 10:04] VITALS: BP 101/48; PULSE 71; TEMP 36.6; BMI 37.9
--- NOTE | 2021-03-07 12:40 | PCM.WC.PN ---
History of Present Illness Date of Service: 03/07/21 Chief Complaint: follow up lower back opening History of Wound: Back surgery in 2018 and the wound has never closed. Recently had a abcess and had it drained in the ED .She has been on 3 cycles of antibiotics and currently doing nothing for it. Subjective Subjective no concerns some soreness noted Objective Data Objective Data the area looks clean and no sign of infection noted still has tunnelling at 12 able to still pack well with 1/2 iodoform gauze . bleeds easily with debridement no odor Vital Signs: Vital Signs Temp Pulse Resp BP 97.9 F 71 16 101/48 L 03/07/21 10:04 03/07/21 10:04 02/20/21 00:39 03/07/21 10:04 Weight: 214 lb Body Mass Index (BMI) 37.9 Lab / Micro Data Micro: Microbiology 02/28/21 10:45 Wound Abcess - Back Gram Stain - Final 02/28/21 10:45 Wound Abcess - Back Wound Culture - Final Gram positive skyla 02/28/21 10:45 Wound Abcess - Back Anaerobic Culture - Final No anaerobic bacteria isolated. Physical Exam Const oriented x3 General Appearance: cooperative Exam Limitations: no limitations HEENT normocephalic Head and Scalp: normal to inspection Face and Sinus: normal facial exam Nose: external nose normal General Ear: hearing grossly impaired External Ear: external ears normal Mouth: oral and palatal mucosa normal Eyes PERRL General Eye: normal appearance of both eyes Neck full ROM General: normal visual inspection Resp normal respiratory effort Effort and Inspection: able to speak in complete sentences Auscultation: clear to auscultation bilaterally Cardio regular rate and regular rhythm Palpation: normal PMI Rate: regular rate Rhythm: regular rhythm GI Auscultation: normoactive bowel sounds Palpation: soft and no hepatosplenomegaly external exam normal Back/Spine Cervical Spine: cervical ROM normal Thoracic Spine / Upper Back: normal to inspection Lumbar Spine / Lower Back: normal to inspection Extremity normal to inspection General Extremity: normal exam except as noted Skin no rashes or lesions noted Neuro oriented x3 Psych Appearance: grossly normal Speech: normal speech Thought Content: normal thought content Judgement: judgement good Debridement Note Debridement Note Post-Debridement Measurements and Additional Note: Post-Debridement Measurements/Treatment WC - Nurse 1 - General Ulcer Assessment Start: 02/21/21 10:03 Freq: Status: Active Protocol: [email or web address].LOWEXT Activity Type Activity Date Activity User E-Sign Co-Sign Detail Recorded Client Recorded Date Recorded By Document 02/21/21 10:30 KR [id number] 02/21/21 10:31 KR Document 02/28/21 10:16 KR [id number] 02/28/21 10:20 KR Document 03/07/21 10:04 KR [id number] 03/07/21 10:08 KR 02/21/21 02/28/21 03/07/21 10:30 10:16 10:04 - Today's Visit Information Type of service Follow-up Visit Follow-up Visit Follow-up Visit (Physician/INSTRUCTOR APPAREL MANUFACTURE (Physician/INSTRUCTOR APPAREL MANUFACTURE (Physician/INSTRUCTOR APPAREL MANUFACTURE ) ) ) Arrival Mode Ambulatory, Ambulatory Walker Walker Patient Identification Verified (Name & Yes Yes Yes ) Height and Weight Body Mass Index (BMI) 37.9 37.9 37.9 BMI Classification Obese Obese Obese Vital Signs Temperature (97.8 F-99.1 F) 96.7 F L 96.7 F L 97.9 F Temperature Source Temporal Temporal Temporal Pulse Rate (60-100) 66 72 71 Pulse Location Monitor Monitor Monitor Blood Pressure (90/60-120/80) 114/56 L 113/55 L 101/48 L Blood Pressure Mean (mm Hg) 75 74 65 Source Monitor Monitor Monitor Position Semi-Fowlers Semi-Fowlers Semi-Fowlers Blood Pressure Location Right Arm Right Arm Right Arm History Since Last Visit- (Skip if this is Patient's initial visit) Have you changed medications since your No No No last visit? Any new allergies or adverse reactions No No No Had a fall/change in ADL's that may No No No increase risk of falls Signs or symptoms of abuse and/or No No No neglect since last visit Have you been in the hospital since your No No No last visit? Has dressing in place as prescribed Yes Yes Yes Has compression in place as prescribed N/A N/A N/A Has offloadiing in place as prescribed N/A N/A N/A Experienced any changes in pain level or No No No management Left Footwear Regular Shoe Regular Shoe Regular Shoe Right Footwear Regular Shoe Regular Shoe Regular Shoe Pain Scale: 0-10 Numeric Is Patient Pain Free? Yes Yes Yes - Nurse 1 - General Ulcer Measurement Start: 02/21/21 10:03 Freq: Status: Active Protocol: Activity Type Activity Date Activity User E-Sign Co-Sign Detail Recorded Client Recorded Date Recorded By Document 02/21/21 10:30 KR [id number] 02/21/21 10:31 KR Document 02/28/21 10:16 KR [id number] 02/28/21 10:20 KR Document 03/07/21 10:04 KR [id number] 03/07/21 10:08 KR 02/21/21 02/28/21 03/07/21 10:30 10:16 10:04 Wound Center Nurse 1 #2- MID BACK (OLD INCISION SITE) -Current Size (cm) - Length 0.5 0.6 0.5 -Current Size (cm) - Width 0.4 0.3 0.4 -Current Size (cm) - Depth 0.2 0.2 0.2 -Total Square Cm 0.20 0.18 0.20 -Tunneling Position (O'clock) 12 2 12 -Tunneling Distance (cm) 1.6 1.8 0.8 -Exudate Amt Small Medium Medium -Exudate Type Yellow/Green Serosanguineous Serosanguineous -Wound Margin Distinct, Distinct, Distinct, Outline Outline Outline Attached Attached Attached -Granulation Amt Small (1-33%) Medium (34-66%) Medium (34-66%) -Granulation Quality Red Red Red -Necrosis Amt Small (1-33%) Medium (34-66%) Medium (34-66%) -Necrotic Tissue Type Adherent Slough Adherent Slough Adherent Slough -Texture (Kari-wound Skin Appearance) Assessed, Assessed, Assessed, Scarring Scarring Scarring -Moisture (Kari-wound Skin Appearance) No Abnormality, No Abnormality, No Abnormality, Assessed Assessed Assessed -Color (Kari-wound Skin Appearance) No Abnormality, No Abnormality, No Abnormality, Assessed Assessed Assessed -Temperature (Kari-wound Skin No Abnormality No Abnormality No Abnormality Appearance) (Pt Warm) (Pt Warm) (Pt Warm) -Tenderness on Palpation (Kari-wound No No No Skin Appearance) -Ulcer Cleansing Rinsed/ Rinsed/ Rinsed/ Irrigated with Irrigated with Irrigated with Saline Saline Saline -Foul Odor after Cleansing No No No -Anesthetic Used 5% Lidocaine 5% Lidocaine 4% Lidocaine Gel Gel Solution WC - Nurse 2 - General Ulcer CM Notes Start: 02/21/21 10:03 Freq: Status: Active Protocol: Activity Type Activity Date Activity User E-Sign Co-Sign Detail Recorded Client Recorded Date Recorded By Document 02/21/21 10:04 MW [id number] 02/21/21 10:08 MW Document 02/28/21 10:40 MW [id number] 02/28/21 12:20 MW Document 03/07/21 10:31 MW [id number] 03/07/21 10:32 MW 02/21/21 02/28/21 03/07/21 10:04 10:40 10:31 Wound Center Nurse 2 #2- MID BACK (OLD INCISION SITE) -Time 10:04 10:40 10:32 -Correct Patient Yes Yes Yes -Correct Side, Site, Position Yes Yes Yes -Correct Procedure Yes Yes Yes -Procedure Performed Yes Yes Yes -Type of Procedure Debridement Debridement Debridement -Clinical Debridement Subcutaneous Subcutaneous Subcutaneous -Tissue Removed Subcutaneous Subcutaneous Subcutaneous -Post Debridement (cm) - Length 0.6 0.6 0.4 -Post Debridement (cm) - Width 0.4 0.3 0.4 -Post Debridement (cm) - Depth 0.2 0.2 0.2 -Total Square (Post) (cm) 0.24 0.18 0.16 -Area of Debridement (cm) - Length 0.6 0.6 0.4 -Area of Debridement (cm) - Width 0.4 0.3 0.4 -Total Square (Area) (cm) 0.24 0.18 0.16 -Tunneling Yes No No -Tunneling Position (O'clock) 12 12 -Tunneling Distance (cm) 1.9 1.0 -Undermining/Tunneling No No No -Circular Undermining No No No -Wound/Ulcer Outcome Not Healed Not Healed Not Healed -Ulcer Cleansing Rinsed/ Rinsed/ Rinsed/ Irrigated with Irrigated with Irrigated with Saline Saline Saline -Foul Odor after Cleansing No No No -Bioengineered Tissue No No No -Bleeding Controlled with Pressure Pressure Pressure -Offloading No No No -Treatment Response Procedure Procedure Procedure Tolerated Well Tolerated Well Tolerated Well -Debridement - Subq, 1st 20sq cm Yes Yes Yes Pain Scale: 0-10 Numeric Is Patient Pain Free? Yes Yes Yes WC - Nurse 3 - General Ulcer D/C NN Start: 02/21/21 10:03 Freq: Status: Active Protocol: Activity Type Activity Date Activity User E-Sign Co-Sign Detail Recorded Client Recorded Date Recorded By Document 02/21/21 10:08 MW [id number] 02/21/21 10:09 MW Document 02/28/21 11:25 KR [id number] 02/28/21 11:25 KR Document 03/07/21 10:48 KR [id number] 03/07/21 10:48 KR 02/21/21 02/28/21 03/07/21 10:08 11:25 10:48 Wound Care Nurse 3 #2- MID BACK (OLD INCISION SITE) -Ulcer Cleansing Rinsed/ Rinsed/ Irrigated with Irrigated with Saline Saline -Foul Odor after Cleansing No -Negative Pressure Wound Therapy N/A -Primary Dressing Applied Nugauze, Iodoform -Primary Dressing Covered/Secured with Dry Gauze, Dry Gauze, Dry Gauze, Secured with Secured with Secured with Tape Tape Tape -Nugauze, Iodoform 1/4 1 Treatment Response Procedure Tolerated Well Pain Scale: 0-10 Numeric Is Patient Pain Free? Yes Yes Teaching: Wound Center Dressing Your Wound -Person Taught Patient -Teaching Method Discussion, Demonstration -Response to teaching Verbalize understanding WC - Visit Discharge Discharge Condition Stable Stable Stable Ambulatory Status Ambulatory, Walker Walker Walker Transportation Private Auto Private Auto Private Auto Accompanied by self Medication Reconcilliation completed & No provided to patient/care provider Clinical Summary of Care Provided Yes Wound debrided: mid back Type of Debridement: Excisional debridement Anesthesia Used: 5% Lidocaine Gel Depth: Down to and including healthy tissue Percentage of wound debrided: 100 Instrument Used: 3mm curette Tissue Removed: fibrin Severity: Limited To Skin Breakdown Amount of bleeding with debridement: Mild Bleeding Controlled with: Compression and gauze Patient tolerated procedure: Patient tolerated procedure well Assessment/Plan Assessment/Plan (1) Dehiscence of surgical wound: CODE(S): T81.31XA - Disruption of external operation (surgical) wound, not elsewhere classified, initial encounter QUALIFIERS: Encounter type: subsequent encounter Qualified Code(s): T81.31XD - Disruption of external operation (surgical) wound, not elsewhere classified, subsequent encounter PLAN: Wash the area with antibacteria soap and pack with iodoform gauze everyday 1/2 inch wide \cover with dry 2x2 dressing follow up 1 week (2) Osteoarthritis: CODE(S): M19.90 - Unspecified osteoarthritis, unspecified site QUALIFIERS: Osteoarthritis location: multiple joints Osteoarthritis type: primary Qualified Code(s): M89.49 - Other hypertrophic osteoarthropathy, multiple sites (3) Lumbar spinal stenosis: CODE(S): M48.061 - Spinal stenosis, lumbar region without neurogenic claudication QUALIFIERS: Neurogenic claudication status: with neurogenic claudication Qualified Code(s): M48.062 - Spinal stenosis, lumbar region with neurogenic claudication (4) Morbid obesity with BMI of 40.0-44.9, adult: CODE(S): E66.01 - Morbid (severe) obesity due to excess calories; Z68.41 - Body mass index [BMI]40.0-44.9, adult
[2021-03-14 10:31] VITALS: BP 123/57; PULSE 75; TEMP 35.9; BMI 37.9
--- NOTE | 2021-03-14 12:37 | PN.PCM_ITS ---
History of Present Illness Date of Service: 03/14/21 Chief Complaint: follow up lower back opening History of Wound: Back surgery in 2018 and the wound has never closed. Recently had a abcess and had it drained in the ED .She has been on 3 cycles of antibiotics and currently doing nothing for it. Subjective Subjective Patient not understanding malnutrition patient states she does eat Objective Data Objective Data Went over labs with patient and her malnutrition is about 11 she needs to get up to 20. Patient is encouraged to drink protein drinks 30 g which she states she has the area is smaller but it still has tunneling. We will revert back to the quarter inch half inch seems to be too large at this point packing iodoform Vital Signs: Vital Signs Temp Pulse Resp BP 96.7 F L 75 16 123/57 H 03/14/21 10:31 03/14/21 10:31 02/20/21 00:39 03/14/21 10:31 Weight: 214 lb Body Mass Index (BMI) 37.9 Lab / Micro Data Attestation: I reviewed the patient's lab results. Lab results narrative: Complete blood count was within normal limits prealbumin was low patient encouraged to drink protein drinks Micro: Microbiology 02/28/21 10:45 Wound Abcess - Back Gram Stain - Final 02/28/21 10:45 Wound Abcess - Back Wound Culture - Final Gram positive skyla 02/28/21 10:45 Wound Abcess - Back Anaerobic Culture - Final No anaerobic bacteria isolated. Physical Exam Const oriented x3 General Appearance: cooperative Exam Limitations: no limitations HEENT normocephalic Head and Scalp: normal to inspection Face and Sinus: normal facial exam Nose: external nose normal General Ear: hearing grossly impaired External Ear: external ears normal Mouth: oral and palatal mucosa normal Eyes PERRL General Eye: normal appearance of both eyes Neck full ROM General: normal visual inspection Resp normal respiratory effort Effort and Inspection: able to speak in complete sentences Auscultation: clear to auscultation bilaterally Cardio regular rate and regular rhythm Palpation: normal PMI Rate: regular rate Rhythm: regular rhythm GI Auscultation: normoactive bowel sounds Palpation: soft and no hepatosplenomegaly external exam normal Back/Spine Cervical Spine: cervical ROM normal Thoracic Spine / Upper Back: normal to inspection Lumbar Spine / Lower Back: normal to inspection Extremity normal to inspection General Extremity: normal exam except as noted Skin no rashes or lesions noted Neuro oriented x3 Psych Appearance: grossly normal Speech: normal speech Thought Content: normal thought content Judgement: judgement good Debridement Note Debridement Note Post-Debridement Measurements and Additional Note: Post-Debridement Measurements/Treatment - Nurse 1 - General Ulcer Assessment Start: 02/21/21 10:03 Freq: Status: Active Protocol: [email or web address] Activity Type Activity Date Activity User E-Sign Co-Sign Detail Recorded Client Recorded Date Recorded By Document 02/21/21 10:30 KR [id number] 02/21/21 10:31 KR Document 02/28/21 10:16 KR [id number] 02/28/21 10:20 KR Document 03/07/21 10:04 KR [id number] 03/07/21 10:08 KR Document 03/14/21 10:31 KR [id number] 03/14/21 10:34 KR 02/21/21 02/28/21 03/07/21 10:30 10:16 10:04 - Today's Visit Information Type of service Follow-up Visit Follow-up Visit Follow-up Visit (Physician/HEALTH PROMOTION MANAGER (Physician/HEALTH PROMOTION MANAGER (Physician/HEALTH PROMOTION MANAGER ) ) ) Arrival Mode Ambulatory, Ambulatory Walker Walker Patient Identification Verified (Name & Yes Yes Yes ) Height and Weight Body Mass Index (BMI) 37.9 37.9 37.9 BMI Classification Obese Obese Obese Vital Signs Temperature (97.8 F-99.1 F) 96.7 F L 96.7 F L 97.9 F Temperature Source Temporal Temporal Temporal Pulse Rate (60-100) 66 72 71 Pulse Location Monitor Monitor Monitor Blood Pressure (90/60-120/80) 114/56 L 113/55 L 101/48 L Blood Pressure Mean (mm Hg) 75 74 65 Source Monitor Monitor Monitor Position Semi-Fowlers Semi-Fowlers Semi-Fowlers Blood Pressure Location Right Arm Right Arm Right Arm History Since Last Visit- (Skip if this is Patient's initial visit) Have you changed medications since your No No No last visit? Any new allergies or adverse reactions No No No Had a fall/change in ADL's that may No No No increase risk of falls Signs or symptoms of abuse and/or No No No neglect since last visit Have you been in the hospital since your No No No last visit? Has dressing in place as prescribed Yes Yes Yes Has compression in place as prescribed N/A N/A N/A Has offloadiing in place as prescribed N/A N/A N/A Experienced any changes in pain level or No No No management Left Footwear Regular Shoe Regular Shoe Regular Shoe Right Footwear Regular Shoe Regular Shoe Regular Shoe Pain Scale: 0-10 Numeric Is Patient Pain Free? Yes Yes Yes 03/14/21 10:31 - Today's Visit Information Type of service Nurse-only Visit Arrival Mode Walker Patient Identification Verified (Name & Yes ) Height and Weight Body Mass Index (BMI) 37.9 BMI Classification Obese Vital Signs Temperature (97.8 F-99.1 F) 96.7 F L Temperature Source Temporal Pulse Rate (60-100) 75 Pulse Location Monitor Blood Pressure (90/60-120/80) 123/57 H Blood Pressure Mean (mm Hg) 79 Source Monitor Position Semi-Fowlers Blood Pressure Location Right Arm History Since Last Visit- (Skip if this is Patient's initial visit) Have you changed medications since your No last visit? Any new allergies or adverse reactions No Had a fall/change in ADL's that may No increase risk of falls Signs or symptoms of abuse and/or No neglect since last visit Have you been in the hospital since your No last visit? Has dressing in place as prescribed Yes Has compression in place as prescribed N/A Has offloadiing in place as prescribed N/A Experienced any changes in pain level or No management Left Footwear Regular Shoe Right Footwear Regular Shoe Pain Scale: 0-10 Numeric Is Patient Pain Free? Yes - Nurse 1 - General Ulcer Measurement Start: 02/21/21 10:03 Freq: Status: Active Protocol: Activity Type Activity Date Activity User E-Sign Co-Sign Detail Recorded Client Recorded Date Recorded By Document 02/21/21 10:30 KR [id number] 02/21/21 10:31 KR Document 02/28/21 10:16 KR [id number] 02/28/21 10:20 KR Document 03/07/21 10:04 KR [id number] 03/07/21 10:08 KR Document 03/14/21 10:31 KR [id number] 03/14/21 10:34 KR 02/21/21 02/28/21 03/07/21 10:30 10:16 10:04 Wound Center Nurse 1 #2- MID BACK (OLD INCISION SITE) -Current Size (cm) - Length 0.5 0.6 0.5 -Current Size (cm) - Width 0.4 0.3 0.4 -Current Size (cm) - Depth 0.2 0.2 0.2 -Total Square Cm 0.20 0.18 0.20 -Tunneling Position (O'clock) 12 2 12 -Tunneling Distance (cm) 1.6 1.8 0.8 -Exudate Amt Small Medium Medium -Exudate Type Yellow/Green Serosanguineous Serosanguineous -Wound Margin Distinct, Distinct, Distinct, Outline Outline Outline Attached Attached Attached -Granulation Amt Small (1-33%) Medium (34-66%) Medium (34-66%) -Granulation Quality Red Red Red -Necrosis Amt Small (1-33%) Medium (34-66%) Medium (34-66%) -Necrotic Tissue Type Adherent Slough Adherent Slough Adherent Slough -Texture (Kari-wound Skin Appearance) Assessed, Assessed, Assessed, Scarring Scarring Scarring -Moisture (Kari-wound Skin Appearance) No Abnormality, No Abnormality, No Abnormality, Assessed Assessed Assessed -Color (Kari-wound Skin Appearance) No Abnormality, No Abnormality, No Abnormality, Assessed Assessed Assessed -Temperature (Kari-wound Skin No Abnormality No Abnormality No Abnormality Appearance) (Pt Warm) (Pt Warm) (Pt Warm) -Tenderness on Palpation (Kari-wound No No No Skin Appearance) -Ulcer Cleansing Rinsed/ Rinsed/ Rinsed/ Irrigated with Irrigated with Irrigated with Saline Saline Saline -Foul Odor after Cleansing No No No -Anesthetic Used 5% Lidocaine 5% Lidocaine 4% Lidocaine Gel Gel Solution 03/14/21 10:31 Wound Center Nurse 1 #2- MID BACK (OLD INCISION SITE) -Current Size (cm) - Length 0.4 -Current Size (cm) - Width 0.2 -Current Size (cm) - Depth 0.2 -Total Square Cm 0.08 -Tunneling Position (O'clock) 12 -Tunneling Distance (cm) 1.2 -Exudate Amt Small -Exudate Type Serosanguineous -Wound Margin Distinct, Outline Attached -Granulation Amt Small (1-33%) -Granulation Quality Red -Necrosis Amt Small (1-33%) -Necrotic Tissue Type Adherent Slough -Texture (Kari-wound Skin Appearance) Assessed, Scarring -Moisture (Kari-wound Skin Appearance) No Abnormality, Assessed -Color (Kari-wound Skin Appearance) No Abnormality, Assessed -Temperature (Kari-wound Skin No Abnormality Appearance) (Pt Warm) -Tenderness on Palpation (Kari-wound No Skin Appearance) -Ulcer Cleansing Rinsed/ Irrigated with Saline -Foul Odor after Cleansing No -Anesthetic Used 5% Lidocaine Gel WC - Nurse 2 - General Ulcer CM Notes Start: 02/21/21 10:03 Freq: Status: Active Protocol: Activity Type Activity Date Activity User E-Sign Co-Sign Detail Recorded Client Recorded Date Recorded By Document 02/21/21 10:04 MW [id number] 02/21/21 10:08 MW Document 02/28/21 10:40 MW [id number] 02/28/21 12:20 MW Document 03/07/21 10:31 MW [id number] 03/07/21 10:32 MW Document 03/14/21 10:40 MW [id number] 03/14/21 10:43 MW 02/21/21 02/28/21 03/07/21 10:04 10:40 10:31 Wound Center Nurse 2 #2- MID BACK (OLD INCISION SITE) -Time 10:04 10:40 10:32 -Correct Patient Yes Yes Yes -Correct Side, Site, Position Yes Yes Yes -Correct Procedure Yes Yes Yes -Procedure Performed Yes Yes Yes -Type of Procedure Debridement Debridement Debridement -Clinical Debridement Subcutaneous Subcutaneous Subcutaneous -Tissue Removed Subcutaneous Subcutaneous Subcutaneous -Post Debridement (cm) - Length 0.6 0.6 0.4 -Post Debridement (cm) - Width 0.4 0.3 0.4 -Post Debridement (cm) - Depth 0.2 0.2 0.2 -Total Square (Post) (cm) 0.24 0.18 0.16 -Area of Debridement (cm) - Length 0.6 0.6 0.4 -Area of Debridement (cm) - Width 0.4 0.3 0.4 -Total Square (Area) (cm) 0.24 0.18 0.16 -Tunneling Yes No No -Tunneling Position (O'clock) 12 12 -Tunneling Distance (cm) 1.9 1.0 -Undermining/Tunneling No No No -Circular Undermining No No No -Wound/Ulcer Outcome Not Healed Not Healed Not Healed -Ulcer Cleansing Rinsed/ Rinsed/ Rinsed/ Irrigated with Irrigated with Irrigated with Saline Saline Saline -Foul Odor after Cleansing No No No -Bioengineered Tissue No No No -Bleeding Controlled with Pressure Pressure Pressure -Offloading No No No -Treatment Response Procedure Procedure Procedure Tolerated Well Tolerated Well Tolerated Well -Debridement - Subq, 1st 20sq cm Yes Yes Yes Pain Scale: 0-10 Numeric Is Patient Pain Free? Yes Yes Yes 03/14/21 10:40 Wound Center Nurse 2 #2- MID BACK (OLD INCISION SITE) -Time 10:41 -Correct Patient Yes -Correct Side, Site, Position Yes -Correct Procedure Yes -Procedure Performed Yes -Type of Procedure Debridement -Clinical Debridement Subcutaneous -Tissue Removed Subcutaneous -Post Debridement (cm) - Length 0.4 -Post Debridement (cm) - Width 0.4 -Post Debridement (cm) - Depth 0.2 -Total Square (Post) (cm) 0.16 -Area of Debridement (cm) - Length 0.4 -Area of Debridement (cm) - Width 0.4 -Total Square (Area) (cm) 0.16 -Tunneling No -Tunneling Position (O'clock) -Tunneling Distance (cm) -Undermining/Tunneling No -Circular Undermining No -Wound/Ulcer Outcome Not Healed -Ulcer Cleansing Rinsed/ Irrigated with Saline -Foul Odor after Cleansing No -Bioengineered Tissue No -Bleeding Controlled with Pressure -Offloading No -Treatment Response Procedure Tolerated Well -Debridement - Subq, 1st 20sq cm Yes Pain Scale: 0-10 Numeric Is Patient Pain Free? Yes WC - Nurse 3 - General Ulcer D/C NN Start: 02/21/21 10:03 Freq: Status: Active Protocol: Activity Type Activity Date Activity User E-Sign Co-Sign Detail Recorded Client Recorded Date Recorded By Document 02/21/21 10:08 MW [id number] 02/21/21 10:09 MW Document 02/28/21 11:25 KR [id number] 02/28/21 11:25 KR Document 03/07/21 10:48 KR [id number] 03/07/21 10:48 KR Document 03/14/21 10:43 MW [id number] 03/14/21 10:44 MW 02/21/21 02/28/21 03/07/21 10:08 11:25 10:48 Wound Care Nurse 3 #2- MID BACK (OLD INCISION SITE) -Ulcer Cleansing Rinsed/ Rinsed/ Irrigated with Irrigated with Saline Saline -Foul Odor after Cleansing No -Negative Pressure Wound Therapy N/A -Primary Dressing Applied Nugauze, Iodoform -Other Dressing -Primary Dressing Covered/Secured with Dry Gauze, Dry Gauze, Dry Gauze, Secured with Secured with Secured with Tape Tape Tape -Nugauze, Iodoform 1/4 1 Treatment Response Procedure Tolerated Well Pain Scale: 0-10 Numeric Is Patient Pain Free? Yes Yes Teaching: Wound Center Dressing Your Wound -Person Taught Patient -Teaching Method Discussion, Demonstration -Response to teaching Verbalize understanding WC - Visit Discharge Discharge Condition Stable Stable Stable Ambulatory Status Ambulatory, Walker Walker Walker Transportation Private Auto Private Auto Private Auto Accompanied by self Medication Reconcilliation completed & No provided to patient/care provider Clinical Summary of Care Provided Yes 03/14/21 10:43 Wound Care Nurse 3 #2- MID BACK (OLD INCISION SITE) -Ulcer Cleansing Rinsed/ Irrigated with Saline -Foul Odor after Cleansing No -Negative Pressure Wound Therapy N/A -Primary Dressing Applied -Other Dressing iodoform gauze -Primary Dressing Covered/Secured with Dry Gauze, Secured with Tape -Nugauze, Iodoform 1/4 Treatment Response Procedure Tolerated Well Pain Scale: 0-10 Numeric Is Patient Pain Free? Yes Teaching: Wound Center Dressing Your Wound -Person Taught Patient -Teaching Method Discussion, Demonstration -Response to teaching Verbalize understanding WC - Visit Discharge Discharge Condition Stable Ambulatory Status Ambulatory, Walker Transportation Private Auto Accompanied by self Medication Reconcilliation completed & No provided to patient/care provider Clinical Summary of Care Provided Yes Wound debrided: Mid back wound Type of Debridement: Excisional debridement Anesthesia Used: 5% Lidocaine Gel Depth: Down to and including healthy tissue Percentage of wound debrided: 100 Instrument Used: 3mm curette Severity: Limited To Skin Breakdown Amount of bleeding with debridement: Mild Bleeding Controlled with: Pressure Patient tolerated procedure: Patient tolerated procedure well Assessment/Plan Assessment/Plan (1) Dehiscence of surgical wound: CODE(S): T81.31XA - Disruption of external operation (surgical) wound, not elsewhere classified, initial encounter QUALIFIERS: Encounter type: subsequent encounter Qualified Code(s): T81.31XD - Disruption of external operation (surgical) wound, not elsewhere classified, subsequent encounter PLAN: Wash the area with antibacteria soap and pack with iodoform gauze everyday 1/4 inch wide iodoform gauze \cover with dry 2x2 dressing follow up 1 week (2) Malnutrition: CODE(S): E46 - Unspecified protein-calorie malnutrition QUALIFIERS: Malnutrition type: protein-calorie malnutrition Protein-calorie malnutrition severity: moderate Qualified Code(s): E44.0 - Moderate protein-calorie malnutrition (3) Morbid obesity with BMI of 40.0-44.9, adult: CODE(S): E66.01 - Morbid (severe) obesity due to excess calories; Z68.41 - Body mass index [BMI]40.0-44.9, adult
[2021-03-21 10:21] VITALS: BP 141/64; PULSE 70; TEMP 36.3; BMI 37.9
--- NOTE | 2021-03-21 12:38 | PCM.WC.PN ---
History of Present Illness Date of Service: 03/21/21 Chief Complaint: follow up lower back opening History of Wound: Back surgery in 2018 and the wound has never closed. Recently had a abcess and had it drained in the ED .She has been on 3 cycles of antibiotics and currently doing nothing for it. Progress of Wound: The tunneling at 12:00 is still there slightly improved patient is eating a more nutritious diet. She does have home health coming in and doing her dressing changes Subjective Subjective No concerns at this time Objective Data Objective Data We went from half-inch iodoform to quarter inch iodoform packing is getting better. The area is smaller but it is just a slow process Vital Signs: Vital Signs Temp Pulse Resp BP 97.3 F L 70 16 141/64 H 03/21/21 10:21 03/21/21 10:21 02/20/21 00:39 03/21/21 10:21 Weight: 214 lb Body Mass Index (BMI) 37.9 Lab / Micro Data Attestation: I reviewed the patient's lab results. Micro: Microbiology 02/28/21 10:45 Wound Abcess - Back Gram Stain - Final 02/28/21 10:45 Wound Abcess - Back Wound Culture - Final Gram positive skyla 02/28/21 10:45 Wound Abcess - Back Anaerobic Culture - Final No anaerobic bacteria isolated. Physical Exam Const oriented x3 General Appearance: cooperative Exam Limitations: no limitations Resp normal respiratory effort Effort and Inspection: able to speak in complete sentences Auscultation: clear to auscultation bilaterally Cardio regular rate and regular rhythm Palpation: normal PMI Rate: regular rate Rhythm: regular rhythm Extremity normal to inspection General Extremity: normal exam except as noted Skin no rashes or lesions noted Neuro oriented x3 Psych Appearance: grossly normal Speech: normal speech Thought Content: normal thought content Judgement: judgement good Debridement Note Debridement Note Post-Debridement Measurements and Additional Note: Post-Debridement Measurements/Treatment CHANDRIKA - Nurse 1 - General Ulcer Assessment Start: 02/21/21 10:03 Freq: Status: Active Protocol: PANKAJ Activity Type Activity Date Activity User E-Sign Co-Sign Detail Recorded Client Recorded Date Recorded By Document 02/21/21 10:30 FAYE [id number] 02/21/21 10:31 KR Document 02/28/21 10:16 FAYE [id number] 02/28/21 10:20 KR Document 03/07/21 10:04 KR [id number] 03/07/21 10:08 KR Document 03/14/21 10:31 KR [id number] 03/14/21 10:34 KR Document 03/21/21 10:21 KR [id number] 03/21/21 10:27 KR 02/21/21 02/28/21 03/07/21 10:30 10:16 10:04 - Today's Visit Information Type of service Follow-up Visit Follow-up Visit Follow-up Visit (Physician/DIABETES SOLUTIONS SPECIALIST (Physician/DIABETES SOLUTIONS SPECIALIST (Physician/DIABETES SOLUTIONS SPECIALIST ) ) ) Arrival Mode Ambulatory, Ambulatory Walker Walker Patient Identification Verified (Name & Yes Yes Yes ) Height and Weight Body Mass Index (BMI) 37.9 37.9 37.9 BMI Classification Obese Obese Obese Vital Signs Temperature (97.8 F-99.1 F) 96.7 F L 96.7 F L 97.9 F Temperature Source Temporal Temporal Temporal Pulse Rate (60-100) 66 72 71 Pulse Location Monitor Monitor Monitor Blood Pressure (90/60-120/80) 114/56 L 113/55 L 101/48 L Blood Pressure Mean (mm Hg) 75 74 65 Source Monitor Monitor Monitor Position Semi-Fowlers Semi-Fowlers Semi-Fowlers Blood Pressure Location Right Arm Right Arm Right Arm History Since Last Visit- (Skip if this is Patient's initial visit) Have you changed medications since your No No No last visit? Any new allergies or adverse reactions No No No Had a fall/change in ADL's that may No No No increase risk of falls Signs or symptoms of abuse and/or No No No neglect since last visit Have you been in the hospital since your No No No last visit? Has dressing in place as prescribed Yes Yes Yes Has compression in place as prescribed N/A N/A N/A Has offloadiing in place as prescribed N/A N/A N/A Experienced any changes in pain level or No No No management Left Footwear Regular Shoe Regular Shoe Regular Shoe Right Footwear Regular Shoe Regular Shoe Regular Shoe Pain Scale: 0-10 Numeric Is Patient Pain Free? Yes Yes Yes 03/14/21 03/21/21 10:31 10:21 WC - Today's Visit Information Type of service Nurse-only Follow-up Visit Visit (Physician/DIABETES SOLUTIONS SPECIALIST ) Arrival Mode Walker Ambulatory Patient Identification Verified (Name & Yes Yes ) Height and Weight Body Mass Index (BMI) 37.9 37.9 BMI Classification Obese Obese Vital Signs Temperature (97.8 F-99.1 F) 96.7 F L 97.3 F L Temperature Source Temporal Temporal Pulse Rate (60-100) 75 70 Pulse Location Monitor Monitor Blood Pressure (90/60-120/80) 123/57 H 141/64 H Blood Pressure Mean (mm Hg) 79 89 Source Monitor Monitor Position Semi-Fowlers Sitting Blood Pressure Location Right Arm Left Arm History Since Last Visit- (Skip if this is Patient's initial visit) Have you changed medications since your No No last visit? Any new allergies or adverse reactions No No Had a fall/change in ADL's that may No No increase risk of falls Signs or symptoms of abuse and/or No No neglect since last visit Have you been in the hospital since your No No last visit? Has dressing in place as prescribed Yes Yes Has compression in place as prescribed N/A N/A Has offloadiing in place as prescribed N/A N/A Experienced any changes in pain level or No No management Left Footwear Regular Shoe Regular Shoe Right Footwear Regular Shoe Regular Shoe Pain Scale: 0-10 Numeric Is Patient Pain Free? Yes Yes WC - Nurse 1 - General Ulcer Measurement Start: 02/21/21 10:03 Freq: Status: Active Protocol: Activity Type Activity Date Activity User E-Sign Co-Sign Detail Recorded Client Recorded Date Recorded By Document 02/21/21 10:30 KR [id number] 02/21/21 10:31 KR Document 02/28/21 10:16 KR [id number] 02/28/21 10:20 KR Document 03/07/21 10:04 KR [id number] 03/07/21 10:08 KR Document 03/14/21 10:31 KR [id number] 03/14/21 10:34 KR Document 03/21/21 10:21 KR [id number] 03/21/21 10:27 KR 02/21/21 02/28/21 03/07/21 10:30 10:16 10:04 Wound Center Nurse 1 #2- MID BACK (OLD INCISION SITE) -Current Size (cm) - Length 0.5 0.6 0.5 -Current Size (cm) - Width 0.4 0.3 0.4 -Current Size (cm) - Depth 0.2 0.2 0.2 -Total Square Cm 0.20 0.18 0.20 -Tunneling Position (O'clock) 12 2 12 -Tunneling Distance (cm) 1.6 1.8 0.8 -Exudate Amt Small Medium Medium -Exudate Type Yellow/Green Serosanguineous Serosanguineous -Wound Margin Distinct, Distinct, Distinct, Outline Outline Outline Attached Attached Attached -Granulation Amt Small (1-33%) Medium (34-66%) Medium (34-66%) -Granulation Quality Red Red Red -Necrosis Amt Small (1-33%) Medium (34-66%) Medium (34-66%) -Necrotic Tissue Type Adherent Slough Adherent Slough Adherent Slough -Texture (Kari-wound Skin Appearance) Assessed, Assessed, Assessed, Scarring Scarring Scarring -Moisture (Kari-wound Skin Appearance) No Abnormality, No Abnormality, No Abnormality, Assessed Assessed Assessed -Color (Kari-wound Skin Appearance) No Abnormality, No Abnormality, No Abnormality, Assessed Assessed Assessed -Temperature (Kari-wound Skin No Abnormality No Abnormality No Abnormality Appearance) (Pt Warm) (Pt Warm) (Pt Warm) -Tenderness on Palpation (Kari-wound No No No Skin Appearance) -Ulcer Cleansing Rinsed/ Rinsed/ Rinsed/ Irrigated with Irrigated with Irrigated with Saline Saline Saline -Foul Odor after Cleansing No No No -Anesthetic Used 5% Lidocaine 5% Lidocaine 4% Lidocaine Gel Gel Solution 03/14/21 03/21/21 10:31 10:21 Wound Center Nurse 1 #2- MID BACK (OLD INCISION SITE) -Current Size (cm) - Length 0.4 0.3 -Current Size (cm) - Width 0.2 0.3 -Current Size (cm) - Depth 0.2 0.2 -Total Square Cm 0.08 0.09 -Tunneling Position (O'clock) 12 -Tunneling Distance (cm) 1.2 -Exudate Amt Small Medium -Exudate Type Serosanguineous Serosanguineous -Wound Margin Distinct, Distinct, Outline Outline Attached Attached -Granulation Amt Small (1-33%) Small (1-33%) -Granulation Quality Red Red -Necrosis Amt Small (1-33%) Small (1-33%) -Necrotic Tissue Type Adherent Slough Adherent Slough -Texture (Kari-wound Skin Appearance) Assessed, Assessed, Scarring Scarring -Moisture (Kari-wound Skin Appearance) No Abnormality, No Abnormality, Assessed Assessed -Color (Kari-wound Skin Appearance) No Abnormality, No Abnormality, Assessed Assessed -Temperature (Kari-wound Skin No Abnormality No Abnormality Appearance) (Pt Warm) (Pt Warm) -Tenderness on Palpation (Kari-wound No No Skin Appearance) -Ulcer Cleansing Rinsed/ Rinsed/ Irrigated with Irrigated with Saline Saline -Foul Odor after Cleansing No No -Anesthetic Used 5% Lidocaine 5% Lidocaine Gel Gel WC - Nurse 2 - General Ulcer CM Notes Start: 02/21/21 10:03 Freq: Status: Active Protocol: Activity Type Activity Date Activity User E-Sign Co-Sign Detail Recorded Client Recorded Date Recorded By Document 02/21/21 10:04 MW [id number] 02/21/21 10:08 MW Document 02/28/21 10:40 MW [id number] 02/28/21 12:20 MW Document 03/07/21 10:31 MW [id number] 03/07/21 10:32 MW Document 03/14/21 10:40 MW [id number] 03/14/21 10:43 MW 02/21/21 02/28/21 03/07/21 10:04 10:40 10:31 Wound Center Nurse 2 #2- MID BACK (OLD INCISION SITE) -Time 10:04 10:40 10:32 -Correct Patient Yes Yes Yes -Correct Side, Site, Position Yes Yes Yes -Correct Procedure Yes Yes Yes -Procedure Performed Yes Yes Yes -Type of Procedure Debridement Debridement Debridement -Clinical Debridement Subcutaneous Subcutaneous Subcutaneous -Tissue Removed Subcutaneous Subcutaneous Subcutaneous -Post Debridement (cm) - Length 0.6 0.6 0.4 -Post Debridement (cm) - Width 0.4 0.3 0.4 -Post Debridement (cm) - Depth 0.2 0.2 0.2 -Total Square (Post) (cm) 0.24 0.18 0.16 -Area of Debridement (cm) - Length 0.6 0.6 0.4 -Area of Debridement (cm) - Width 0.4 0.3 0.4 -Total Square (Area) (cm) 0.24 0.18 0.16 -Tunneling Yes No No -Tunneling Position (O'clock) 12 12 -Tunneling Distance (cm) 1.9 1.0 -Undermining/Tunneling No No No -Circular Undermining No No No -Wound/Ulcer Outcome Not Healed Not Healed Not Healed -Ulcer Cleansing Rinsed/ Rinsed/ Rinsed/ Irrigated with Irrigated with Irrigated with Saline Saline Saline -Foul Odor after Cleansing No No No -Bioengineered Tissue No No No -Bleeding Controlled with Pressure Pressure Pressure -Offloading No No No -Treatment Response Procedure Procedure Procedure Tolerated Well Tolerated Well Tolerated Well -Debridement - Subq, 1st 20sq cm Yes Yes Yes Pain Scale: 0-10 Numeric Is Patient Pain Free? Yes Yes Yes 03/14/21 10:40 Wound Center Nurse 2 #2- MID BACK (OLD INCISION SITE) -Time 10:41 -Correct Patient Yes -Correct Side, Site, Position Yes -Correct Procedure Yes -Procedure Performed Yes -Type of Procedure Debridement -Clinical Debridement Subcutaneous -Tissue Removed Subcutaneous -Post Debridement (cm) - Length 0.4 -Post Debridement (cm) - Width 0.4 -Post Debridement (cm) - Depth 0.2 -Total Square (Post) (cm) 0.16 -Area of Debridement (cm) - Length 0.4 -Area of Debridement (cm) - Width 0.4 -Total Square (Area) (cm) 0.16 -Tunneling No -Tunneling Position (O'clock) -Tunneling Distance (cm) -Undermining/Tunneling No -Circular Undermining No -Wound/Ulcer Outcome Not Healed -Ulcer Cleansing Rinsed/ Irrigated with Saline -Foul Odor after Cleansing No -Bioengineered Tissue No -Bleeding Controlled with Pressure -Offloading No -Treatment Response Procedure Tolerated Well -Debridement - Subq, 1st 20sq cm Yes Pain Scale: 0-10 Numeric Is Patient Pain Free? Yes - Nurse 3 - General Ulcer D/C NN Start: 02/21/21 10:03 Freq: Status: Active Protocol: Activity Type Activity Date Activity User E-Sign Co-Sign Detail Recorded Client Recorded Date Recorded By Document 02/21/21 10:08 MW [id number] 02/21/21 10:09 MW Document 02/28/21 11:25 KR [id number] 02/28/21 11:25 KR Document 03/07/21 10:48 KR [id number] 03/07/21 10:48 KR Document 03/14/21 10:43 MW [id number] 03/14/21 10:44 MW 02/21/21 02/28/21 03/07/21 10:08 11:25 10:48 Wound Care Nurse 3 #2- MID BACK (OLD INCISION SITE) -Ulcer Cleansing Rinsed/ Rinsed/ Irrigated with Irrigated with Saline Saline -Foul Odor after Cleansing No -Negative Pressure Wound Therapy N/A -Primary Dressing Applied Nugauze, Iodoform -Other Dressing -Primary Dressing Covered/Secured with Dry Gauze, Dry Gauze, Dry Gauze, Secured with Secured with Secured with Tape Tape Tape -Nugauze, Iodoform 1/4 1 Treatment Response Procedure Tolerated Well Pain Scale: 0-10 Numeric Is Patient Pain Free? Yes Yes Teaching: Wound Center Dressing Your Wound -Person Taught Patient -Teaching Method Discussion, Demonstration -Response to teaching Verbalize understanding WC - Visit Discharge Discharge Condition Stable Stable Stable Ambulatory Status Ambulatory, Walker Walker Walker Transportation Private Auto Private Auto Private Auto Accompanied by self Medication Reconcilliation completed & No provided to patient/care provider Clinical Summary of Care Provided Yes 03/14/21 10:43 Wound Care Nurse 3 #2- MID BACK (OLD INCISION SITE) -Ulcer Cleansing Rinsed/ Irrigated with Saline -Foul Odor after Cleansing No -Negative Pressure Wound Therapy N/A -Primary Dressing Applied -Other Dressing iodoform gauze -Primary Dressing Covered/Secured with Dry Gauze, Secured with Tape -Nugauze, Iodoform 1/4 Treatment Response Procedure Tolerated Well Pain Scale: 0-10 Numeric Is Patient Pain Free? Yes Teaching: Wound Center Dressing Your Wound -Person Taught Patient -Teaching Method Discussion, Demonstration -Response to teaching Verbalize understanding WC - Visit Discharge Discharge Condition Stable Ambulatory Status Ambulatory, Walker Transportation Private Auto Accompanied by self Medication Reconcilliation completed & No provided to patient/care provider Clinical Summary of Care Provided Yes Wound debrided: Mid back Type of Debridement: Excisional debridement Anesthesia Used: 5% Lidocaine Gel Depth: Down to and including healthy tissue Percentage of wound debrided: 100 Instrument Used: 3mm curette Tissue Removed: Fibrin Severity: Limited To Skin Breakdown Amount of bleeding with debridement: Mild Bleeding Controlled with: Compression and gauze Patient tolerated procedure: Patient tolerated procedure well Assessment/Plan Assessment/Plan (1) Malnutrition: CODE(S): E46 - Unspecified protein-calorie malnutrition QUALIFIERS: Malnutrition type: protein-calorie malnutrition Protein-calorie malnutrition severity: moderate Qualified Code(s): E44.0 - Moderate protein-calorie malnutrition (2) Dehiscence of surgical wound: CODE(S): T81.31XA - Disruption of external operation (surgical) wound, not elsewhere classified, initial encounter QUALIFIERS: Encounter type: subsequent encounter Qualified Code(s): T81.31XD - Disruption of external operation (surgical) wound, not elsewhere classified, subsequent encounter PLAN: Wash the area with antibacteria soap and pack with iodoform gauze everyday 1/4 inch wide iodoform gauze \cover with dry 2x2 dressing follow up 1 week (3) Lumbar spinal stenosis: CODE(S): M48.061 - Spinal stenosis, lumbar region without neurogenic claudication QUALIFIERS: Neurogenic claudication status: with neurogenic claudication Qualified Code(s): M48.062 - Spinal stenosis, lumbar region with neurogenic claudication
== END 2021-03-21 23:59 ==
LOC: WC 10:15
PROVIDERS: PCP Family Medicine; Visit Provider Nurse Practitioner
DX: T81.31XA Disruption of external operation (surgical) wound, not elsewhere classified, initial encounter (principal); E66.01 Morbid (severe) obesity due to excess calories; Z68.37 Body mass index [BMI] 37.0-37.9, adult; Y83.9 Surgical procedure, unspecified as the cause of abnormal reaction of the patient, or of later complication, without mention of misadventure at the time of the procedure; M48.062 Spinal stenosis, lumbar region with neurogenic claudication; Z68.41 Body mass index [BMI] 40.0-44.9, adult
CPT/HCPCS: 11042; 87070; 87075; 87205

== ENCOUNTER → 2021-03-21 13:37 | Outpatient (CLI) | payer MEDICARE, OTHER, SELFPAY ==
[2021-03-21 10:21] VITALS: BMI 37.9
[2021-03-21 14:43] LABS: D-Dimer Quantitative (DVT/PE) 2.26 FEU/ug/m (0.27-0.49)
== END ==
PROVIDERS: PCP Family Medicine; Visit Provider Family Medicine
DX: R07.9 Chest pain, unspecified (principal)
CPT/HCPCS: 85379

== ENCOUNTER 2021-03-21 16:22 | Emergency (ER) | payer MEDICARE, OTHER, SELFPAY ==
[2021-03-21 10:21] VITALS: BMI 37.9
[2021-03-21 16:24] VITALS: BP 158/81; PULSE 73; RESP 14; TEMP 36.6; O2SAT 98; BMI 36.8
[2021-03-21 16:49] VITALS: O2SAT 96
--- NOTE | 2021-03-21 16:49 | EKG12_ITS ---
Test Reason : ABN LABS Blood Pressure : / mmHG Vent. Rate : 075 BPM Atrial Rate : 075 BPM P-R Int : 166 ms QRS Dur : 094 ms QT Int : 384 ms P-R-T Axes : 033 011 042 degrees QTc Int : 428 ms Normal sinus rhythm Normal ECG Confirmed by DEBORAH ROMERO, CÉSAR ([id number]), web editor ARBEN HEBERT ([id number]) on 03/28/2021 1:08:03 PM Referred By: CLIVE Confirmed By:CÉSAR CABRERA MD
--- NOTE | 2021-03-21 17:04 | EDS_ITS ---
HPI History of Present Illness Chief Complaint: Abn Labs Narrative Narrative: 75-year-old female presenting with chest discomfort. She states this only hurts when she takes a deep breath and is noted to be up at the top end of the sternum. It is not tender in this area. She has no other chest pain. She states it is a pressure-like sensation every time she takes a deep breath. Patient denies rib pain or shoulder pain. She denies dyspnea. Patient is anticoagulated on Eliquis and has an IVC filter. Her primary care physician ordered a D-dimer when she was in office today which was elevated. He sent her here for CTA. She denies any calf pain or swelling. [facility] Medical History Dehiscence of surgical wound GERD (gastroesophageal reflux disease) Hypertension Morbid obesity with BMI of 40.0-44.9, adult Osteoarthritis Peripheral neuropathy Restless leg syndrome Home Medications potassium chloride 10 meq PO DAILY 06/07/18 [History Last Taken Unknown] gabapentin 300 mg PO TID 06/10/18 [History Last Taken 06/12/18 08:00] multivitamin with folic acid [Thera] 1 tab PO DAILY 08/01/18 [History Last Taken Unknown] Coreg 25 mg PO BID 11/24/18 [History Last Taken Unknown] Levothyroxine 50 mcg PO DAILY 11/24/18 [History Last Taken Unknown] hydrALAZINE 25 mg PO BID 11/24/18 [History Last Taken Unknown] apixaban 5 mg PO BID 08/13/20 [History Last Taken Unknown] baclofen 10 mg PO BID PRN PRN 08/13/20 [History Last Taken Unknown] triamterene-hydrochlorothiazid 1 cap PO DAILY 08/13/20 [History Last Taken Unknown] Allergy/AdvReac Type Severity Reaction Status Date / Time erythromycin base Allergy Rash Verified 03/21/21 16:23 [Erythromycin Base] lisinopril Allergy Swelling Verified 03/21/21 16:23 amlodipine AdvReac Swelling Verified 03/21/21 16:23 latex AdvReac Swelling Verified 03/21/21 16:23 WASP Allergy Other Uncoded 03/21/21 16:23 Family History Mother Hypertension Surgical History History of partial nephrectomy History of tonsillectomy History of total abdominal hysterectomy History of total knee arthroplasty Social History Smoking Status: Never smoker ROS ROS ED Constitutional Constitutional ED: Denies chills, fever(s) or subjective Eyes Eyes: Denies blurry vision or change in vision ENT ENT ED: Denies rhinorrhea or sore throat Cardiovascular Cardiovascular: Reports chest pain; Denies palpitations or racing heartbeat Respiratory/Chest Respiratory/Chest: Denies cough or dyspnea Gastrointestinal Gastrointestinal: Denies abdominal pain, nausea or vomiting Genitourinary Genitourinary ED: Denies dysuria or hematuria Musculoskeletal Musculoskeletal: Denies arthralgias or myalgias Integumentary Denies abscess or rash Neurologic Neurologic: Denies headache(s), paresthesias or weakness EXAM Physical Exam Const Vital Signs: 03/21/21 16:24 03/21/21 16:49 03/21/21 18:53 Temperature 98 F Temperature Source Temporal Pulse Rate 73 72 Respiratory Rate 14 18 Blood Pressure 158/81 H 158/77 H Blood Pressure Mean 106 Pulse Ox 98 96 97 Oxygen Delivery Method Room Air Room Air Positive well nourished General Appearance ED: NAD HEENT Reports moist mucous membranes trauma Eyes PERRL and EOMs intact bilaterally Chest Wall inspection of chest normal and palpation of chest normal Resp normal respiratory effort and clear to auscultation bilaterally Cardio regular rate and regular rhythm Neuro oriented x3 Sensorium / Orientation: alert Psych mental status grossly normal Skin no rashes or lesions noted MDM MDM MDM Narrative Medical decision making narrative: Patient presenting for for CTA of the chest because she had outpatient D-dimer which is elevated and she is stating that she has pain in the upper portion of her sternum when she takes a deep inspiration although she is not having any dyspnea. She states this has been going on for a while. Patient is anticoagulated on Eliquis and has an IVC filter. Patient was worked up from a cardiac standpoint and her white blood cell count is 4.5, hemoglobin 12.1, hematocrit 37.9, platelets 140 there is no left shift. Renal function electrolytes are normal. Troponin is 4.6 and therefore negative. Patient had a chest x-ray as interpreted by myself shows no acute cardiopulmonary process. EKG is interpreted by myself is sinus rhythm at 75 bpm without signs of ischemic change. Discussed with patient that it was very unlikely with an IVC filter and oral anticoagulation that she would have a PE. I asked her if she had ever had a blood clot outside of her anticoagulation and her IVC filter and she stated that she had not. I did speak with Dr. Kilgore regarding this. At this point he agrees she probably does not need a CTA of the chest. Patient was amenable to this and discharged home in stable condition. Lab Data Labs: Laboratory Results - last 24 hr 03/21/21 03/21/21 16:55 16:55 WBC 4.5 RBC 3.99 L Hgb 12.1 Hct 37.9 MCV 95.0 MCH 30.3 MCHC 31.9 L RDW Std Deviation 47.8 H RDW Coeff of [place] 13.7 Plt Count 140 L MPV 9.5 Immature Gran % (Auto) 0.200 Neut % (Auto) 64.4 Lymph % (Auto) 25.2 [place] % (Auto) 5.6 Eos % (Auto) 4.2 Baso % (Auto) 0.4 Absolute Neuts (auto) 2.9 Absolute Lymphs (auto) 1.13 Nucleated RBC % 0 Sodium 140 Potassium 3.6 Chloride 107 Carbon Dioxide 28.0 Anion Gap 5 BUN 19 H Creatinine 0.80 Estim Creat Clear Calc 48.72 Est GFR (MDRD) Af Amer 89 Est GFR (MDRD) Non-Af 74 BUN/Creatinine Ratio 23.7 H Glucose 111 H Calcium 9.2 Troponin I High Sens 4.6 Radiography Diagnostic Testing: Radiology Impression Chest X-Ray 03/21/21 17:08 IMPRESSION: No acute radiographic abnormalities. Electronically Signed: Armaan Joseph MD at 17:26 EDT Tel , Service support , Discharge Plan Triage Chief Complaint: Abn Labs ED Provider: Ant Michaels Dx/Rx/DC Orders Instructions: ED Chest Pain, Noncardiac Prescriptions: No Action potassium chloride 10 MEQ tablet 10 meq PO DAILY RF: 0 gabapentin 400 MG capsule 300 mg PO TID RF: 0 multivitamin with folic acid [Thera] 1 TABLET tablet 1 tab PO DAILY RF: 0 Coreg 25 mg PO BID RF: 0 Levothyroxine 50 mcg PO DAILY RF: 0 hydrALAZINE 25 mg PO BID RF: 0 baclofen 10 MG tablet 10 mg PO BID PRN PRN (Reason: Muscle Spasm) RF: 0 triamterene-hydrochlorothiazid 1 CAP capsule 1 cap PO DAILY RF: 0 apixaban 5 MG tablet 5 mg PO BID RF: 0 Primary Care Provider: Ever Kilgore Referrals: Ever Kilgore MD [Primary Care Provider] - Disposition Disposition: Home, Self Care Discharge Date/Time: 03/21/21 18:55
[2021-03-21 17:05] LABS: Absolute Lymphocyte Count 1.13 X10^3/uL (0.83-4.51); Absolute Neutrophil Count 2.9 X10^3/uL (2.0-7.7); Basophil# 0.02 X10^3/uL; Basophil% 0.4 % (0-1); Eosinophil# 0.19 X10^3/uL; Eosinophils% 4.2 % (0-5); Hematocrit 37.9 % (37-47); Hemoglobin 12.1 g/dL (12.0-15.0); Lymphocyte # 1.13 X10^3/ul (0.83-4.51); Lymphocyte % 25.2 % (19-41); Mean Corp Hgb Conc 31.9 g/dL (32-36); Mean Corpuscular Hgb 30.3 pg (27.0-32.0); Mean Platelet Vol. 9.5 fl (6.2-12.0); Monocyte# 0.25 X10^3/uL; Monocyte% 5.6 % (0-10); NRBC Flagged by Analyzer 0 % (0-5); Neutrophil # 2.88 X10^3/uL (2.7-7.7); Neutrophil % 64.4 % (47-70); Platelet Count 140 K/mm3 (150-450); RBC Distribution Width CV 13.7 % (11.6-14.6); RBC Distribution Width SD 47.8 fl (35.1-43.9); Red Blood Count 3.99 M/mm3 (4.2-5.4); White Blood Count 4.5 K/mm3 (4.4-11.0)
--- NOTE | 2021-03-21 17:08 | RAD_ITS ---
INDICATION: chest pain EXAMINATION/TECHNIQUE: X-RAY - XR Chest 1 View COMPARISON: 09/04/2020. FINDINGS: The lungs are clear. The cardiomediastinal silhouette is unremarkable. No pleural effusion or pneumothorax. Degenerative changes of the thoracic spine and shoulders. RAD/Chest 1 View (Portable) IMPRESSION: No acute radiographic abnormalities. Electronically Signed: Armaan Jsoeph MD at 17:26 EDT Tel , Service support ,
[2021-03-21 17:23] LABS: Anion Gap 5 (5-15); BUN 19 mg/dL (7-18); BUN/Creat Ratio 23.7 RATIO (10-20); Calcium,Total 9.2 mg/dL (8.5-10.1); Chloride 107 mmol/L (98-107); EST Glomerular Filtration Rate 74 mL/min (>60); Est Glom Filt Rate - Afr Amer 89 mL/min (>60); Estimated Creatinine Clearance 48.72 ml/min; Glucose 111 mg/dL (74-106); Potassium 3.6 mmol/L (3.5-5.1); Sodium Level 140 mmol/L (136-145); Troponin-I HS 4.6 pg/mL (3.0-53.7)
[2021-03-21 18:53] VITALS: BP 158/77; PULSE 72; RESP 18; O2SAT 97
== END 2021-03-21 18:55 | disposition home or self-care (01) ==
PROVIDERS: Emergency Provider Student in an Organized Health Care Education/Training Program; PCP Family Medicine
DX: R07.9 Chest pain, unspecified (principal); T81.31XA Disruption of external operation (surgical) wound, not elsewhere classified, initial encounter; M48.061 Spinal stenosis, lumbar region without neurogenic claudication; E66.01 Morbid (severe) obesity due to excess calories; Z68.41 Body mass index [BMI] 40.0-44.9, adult; Y83.8 Other surgical procedures as the cause of abnormal reaction of the patient, or of later complication, without mention of misadventure at the time of the procedure; Y92.9 Unspecified place or not applicable
CPT/HCPCS: 11042; 71045; 80048; 84484; 85025; 85379; 93005; 99284; A4216

== ENCOUNTER 2021-04-11 10:00 | Outpatient (RCR) | payer MEDICARE, OTHER, SELFPAY ==
[2021-03-22 00:27] VITALS: BP 141/64; PULSE 70; RESP 16; TEMP 36.3
[2021-03-28 10:04] VITALS: BP 102/55; PULSE 66; RESP 18; TEMP 36.4; BMI 36.8
--- NOTE | 2021-03-28 10:51 | PN.PCM_ITS ---
History of Present Illness Date of Service: 03/28/21 Chief Complaint: follow up lower back opening History of Wound: Back surgery in 2018 and the wound has never closed. Recently had a abcess and had it drained in the ED .She has been on 3 cycles of antibiotics and currently doing nothing for it. Progress of Wound: The wound opening is smaller which makes it harder to pack we will try changing from iodoform to Aquacel Ag roping moistened. Patient states she is trying to eat more protein. Subjective Subjective No concerns chest anxious to have it close Objective Data Objective Data No erythema around the wound opening is slightly smaller undermining and tunneling is still there Vital Signs: Vital Signs Temp Pulse Resp BP 97.5 F L 66 18 102/55 L 03/28/21 10:04 03/28/21 10:04 03/28/21 10:04 03/28/21 10:04 Weight: 214 lb Body Mass Index (BMI) 36.8 Physical Exam Const oriented x3 General Appearance: cooperative Exam Limitations: no limitations Resp normal respiratory effort Effort and Inspection: able to speak in complete sentences Auscultation: clear to auscultation bilaterally Cardio regular rate and regular rhythm Palpation: normal PMI Rate: regular rate Rhythm: regular rhythm Extremity normal to inspection General Extremity: normal exam except as noted Skin no rashes or lesions noted Wounds: wounds noted Neuro oriented x3 Psych Appearance: grossly normal Speech: normal speech Thought Content: normal thought content Judgement: judgement good Debridement Note Debridement Note Post-Debridement Measurements and Additional Note: Post-Debridement Measurements/Treatment CHANDRIKA - Nurse 1 - General Ulcer Assessment Start: 03/28/21 10:04 Freq: Status: Active Protocol: [email or web address] Activity Type Activity Date Activity User E-Sign Co-Sign Detail Recorded Client Recorded Date Recorded By Document 03/28/21 10:04 CARIE [id number] 03/28/21 10:12 CARIE 03/28/21 10:04 - Today's Visit Information Type of service Follow-up Visit (Physician/[facility] ) Arrival Mode Walker Transfer Assistance None Patient Identification Verified (Name & Yes ) Patient Requires Transmission-Based No Precautions Safety Precautions NA Height and Weight Body Mass Index (BMI) 36.8 BMI Classification Obese Vital Signs Temperature (97.8 F-99.1 F) 97.5 F L Temperature Source Temporal Pulse Rate (60-100) 66 Respiratory Rate (12-18) 18 Blood Pressure (90/60-120/80) 102/55 L Blood Pressure Mean (mm Hg) 70 History Since Last Visit- (Skip if this is Patient's initial visit) Have you changed medications since your No last visit? Any new allergies or adverse reactions No Had a fall/change in ADL's that may No increase risk of falls Signs or symptoms of abuse and/or No neglect since last visit Have you been in the hospital since your No last visit? Has dressing in place as prescribed Yes Has compression in place as prescribed N/A Has offloadiing in place as prescribed N/A Experienced any changes in pain level or No management Pain Scale: 0-10 Numeric Is Patient Pain Free? Yes WC - Nurse 1 - General Ulcer Measurement Start: 03/28/21 10:04 Freq: Status: Active Protocol: Activity Type Activity Date Activity User E-Sign Co-Sign Detail Recorded Client Recorded Date Recorded By Document 03/28/21 10:[address] [id number] 03/28/21 10:12 PL 03/28/21 10:04 Wound Center Nurse 1 #2- MID BACK (OLD INCISION SITE) -Combined with other wound No -Current Size (cm) - Length 0.2 -Current Size (cm) - Width 0.2 -Current Size (cm) - Depth 0.3 -Total Square Cm 0.04 -Photo Taken No -Epithelialization None Present -Tunneling No -Undermining/Tunneling No -Circular Undermining No -Exudate Amt Medium -Exudate Type Serosanguineous -Granulation Amt Medium (34-66%) -Granulation Quality [place] -Slough/Fibrin Yes -Necrosis Amt Medium (34-66%) -Necrotic Tissue Type Adherent Slough -Ulcer Cleansing Rinsed/ Irrigated with Saline -Foul Odor after Cleansing No -Anesthetic Used 5% Lidocaine Gel WC - Nurse 2 - General Ulcer CM Notes Start: 03/28/21 10:04 Freq: Status: Active Protocol: Activity Type Activity Date Activity User E-Sign Co-Sign Detail Recorded Client Recorded Date Recorded By Document 03/28/21 10:22 MW [id number] 03/28/21 10:26 MW 03/28/21 10:22 Wound Center Nurse 2 -Time 10:23 -Correct Patient Yes -Correct Side, Site, Position Yes -Correct Procedure Yes -Procedure Performed Yes -Type of Procedure Debridement -Clinical Debridement Subcutaneous -Tissue Removed Subcutaneous -Post Debridement (cm) - Length 0.2 -Post Debridement (cm) - Width 0.2 -Post Debridement (cm) - Depth 0.2 -Total Square (Post) (cm) 0.04 -Area of Debridement (cm) - Length 0.2 -Area of Debridement (cm) - Width 0.2 -Total Square (Area) (cm) 0.04 -Tunneling Yes -Tunneling Position (O'clock) 12 -Tunneling Distance (cm) 1.6 -Undermining/Tunneling No -Circular Undermining No -Wound/Ulcer Outcome Not Healed -Ulcer Cleansing Rinsed/ Irrigated with Saline -Foul Odor after Cleansing No -Bioengineered Tissue No -Debridement - Subq, 1st 20sq cm Yes Pain Scale: 0-10 Numeric Is Patient Pain Free? Yes - Nurse 3 - General Ulcer D/C NN Start: 03/28/21 10:04 Freq: Status: Active Protocol: Activity Type Activity Date Activity User E-Sign Co-Sign Detail Recorded Client Recorded Date Recorded By Document 03/28/21 10:27 MW [id number] 03/28/21 10:28 MW 03/28/21 10:27 Wound Care Nurse 3 #2- MID BACK (OLD INCISION SITE) -Ulcer Cleansing Wound Cleanser -Foul Odor after Cleansing No -Negative Pressure Wound Therapy N/A -Primary Dressing Applied Aquacel AG 4x4 -Primary Dressing Covered/Secured with Dry Gauze, Secured with Tape -Aquacel AG 4x4 1 Treatment Response Procedure Tolerated Well Pain Scale: 0-10 Numeric Is Patient Pain Free? Yes Teaching: Wound Center Dressing Your Wound -Person Taught Patient -Teaching Method Discussion, Demonstration -Response to teaching Verbalize understanding WC - Visit Discharge Discharge Condition Stable Ambulatory Status Ambulatory, Walker Transportation Private Auto Accompanied by self Medication Reconcilliation completed & No provided to patient/care provider Clinical Summary of Care Provided Yes Wound debrided: Mid back wound nonhealing surgical dehiscence Type of Debridement: Excisional debridement Anesthesia Used: 5% Lidocaine Gel Depth: Down to and including healthy tissue and in the subcutaneous layer Percentage of wound debrided: 100 Instrument Used: 3mm curette Tissue Removed: Fibrin Severity: Limited To Skin Breakdown Amount of bleeding with debridement: Mild Bleeding Controlled with: Pressure Patient tolerated procedure: Patient tolerated procedure well Assessment/Plan Assessment/Plan (1) Malnutrition: CODE(S): E46 - Unspecified protein-calorie malnutrition QUALIFIERS: Malnutrition type: protein-calorie malnutrition Protein-calorie malnutrition severity: moderate Qualified Code(s): E44.0 - Moderate protein-calorie malnutrition (2) Dehiscence of surgical wound: CODE(S): T81.31XA - Disruption of external operation (surgical) wound, not elsewhere classified, initial encounter QUALIFIERS: Encounter type: subsequent encounter Qualified Code(s): T81.31XD - Disruption of external operation (surgical) wound, not elsewhere classified, subsequent encounter PLAN: Wash the area with antibacteria soap and pack with Aquacel Ag roping quarter-inch cut strips. Moistened and cover with folded 4 x 4 2 x 2 paper tape to be done every other day follow up 1 week
[2021-04-04 10:17] VITALS: BP 139/60; PULSE 69; RESP 16; TEMP 36.3; BMI 36.8
--- NOTE | 2021-04-04 12:20 | PCM.WC.PN ---
History of Present Illness Date of Service: 04/04/21 Chief Complaint: follow up lower back opening History of Wound: Back surgery in 2018 and the wound has never closed. Recently had a abcess and had it drained in the ED .She has been on 3 cycles of antibiotics and currently doing nothing for it. Progress of Wound: The wound opening is no smaller and she is complaining of increased pain with packing with the Aquacel strips will change back to quarter inch iodoform gauze. Very friable bleeding easily. Subjective Subjective Patient complains of severe pain in the back follows up with surgeon in 1 to 2 weeks Objective Data Objective Data Vital Signs: Vital Signs Temp Pulse Resp BP 97.4 F L 69 16 139/60 H 04/04/21 10:17 04/04/21 10:17 04/04/21 10:17 04/04/21 10:17 Oxygen Delivery Method Room Air Weight: 214 lb Body Mass Index (BMI) 36.8 Intake & Output: The wound is not moving. It is more friable and bleeding easier causing increase in pain will stop the Aquacel and change back to iodoform for comfort and healing Physical Exam Const oriented x3 General Appearance: cooperative Exam Limitations: no limitations Resp normal respiratory effort Effort and Inspection: able to speak in complete sentences Auscultation: clear to auscultation bilaterally Cardio regular rate and regular rhythm Palpation: normal PMI Rate: regular rate Rhythm: regular rhythm Back/Spine Cervical Spine: cervical ROM normal Thoracic Spine / Upper Back: normal to inspection Lumbar Spine / Lower Back: normal to inspection Skin Wounds: wounds noted Psych Appearance: grossly normal Speech: normal speech Thought Content: normal thought content Judgement: judgement good Debridement Note Debridement Note Post-Debridement Measurements and Additional Note: Post-Debridement Measurements/Treatment - Nurse 1 - General Ulcer Assessment Start: 03/28/21 10:04 Freq: Status: Active Protocol: [email or web address].LU Activity Type Activity Date Activity User E-Sign Co-Sign Detail Recorded Client Recorded Date Recorded By Document 03/28/21 10:04 CARIE [id number] 03/28/21 10:12 Document 04/04/21 10:17 [facility] [id number] 04/04/21 10:18 [facility] 03/28/21 04/04/21 10:04 10:17 - Today's Visit Information Type of service Follow-up Visit Follow-up Visit (Physician/[facility] (Physician/[facility] ) ) Arrival Mode Walker Ambulatory, Walker Transfer Assistance None None Patient Identification Verified (Name & Yes Yes ) Patient Requires Transmission-Based No No Precautions Safety Precautions NA Height and Weight Body Mass Index (BMI) 36.8 36.8 BMI Classification Obese Obese Vital Signs Temperature (97.8 F-99.1 F) 97.5 F L 97.4 F L Temperature Source Temporal Temporal Pulse Rate (60-100) 66 69 Respiratory Rate (12-18) 18 16 Respiratory rate source Observation Oxygen Delivery Method Room Air Blood Pressure (90/60-120/80) 102/55 L 139/60 H Blood Pressure Mean (mm Hg) 70 86 Source Monitor Position Sitting Blood Pressure Location Left Arm History Since Last Visit- (Skip if this is Patient's initial visit) Have you changed medications since your No last visit? Any new allergies or adverse reactions No Had a fall/change in ADL's that may No increase risk of falls Signs or symptoms of abuse and/or No neglect since last visit Have you been in the hospital since your No last visit? Has dressing in place as prescribed Yes Has compression in place as prescribed N/A Has offloadiing in place as prescribed N/A Experienced any changes in pain level or No management Left Footwear Regular Shoe Right Footwear Regular Shoe Pain Scale: 0-10 Numeric Is Patient Pain Free? Yes Yes WC - Nurse 1 - General Ulcer Measurement Start: 03/28/21 10:04 Freq: Status: Active Protocol: Activity Type Activity Date Activity User E-Sign Co-Sign Detail Recorded Client Recorded Date Recorded By Document 03/28/21 10:04 [id number] 03/28/21 10:12 Document 04/04/21 10:17 [facility] [id number] 04/04/21 10:18 [facility] 03/28/21 04/04/21 10:04 10:17 Wound Center Nurse 1 #2- MID BACK (OLD INCISION SITE) -Combined with other wound No No -Current Size (cm) - Length 0.2 0.5 -Current Size (cm) - Width 0.2 0.5 -Current Size (cm) - Depth 0.3 0.4 -Total Square Cm 0.04 0.25 -Photo Taken No No -Epithelialization None Present None Present -Tunneling No No -Undermining/Tunneling No Yes -Undermining/Tunneling Starts (O'clock 12 ) -Undermining/Tunneling Ends (O'clock) 1 -Maximum Distance (cm) 1.3 -Circular Undermining No No -Exudate Amt Medium Medium -Exudate Type Serosanguineous Serosanguineous -Wound Margin Distinct, Outline Attached -Granulation Amt Medium (34-66%) Large (67-100%) -Granulation Quality [place] Red -Slough/Fibrin Yes No -Necrosis Amt Medium (34-66%) None Present (0 %) -Necrotic Tissue Type Adherent Slough -Texture (Kari-wound Skin Appearance) Assessed, Scarring -Moisture (Kari-wound Skin Appearance) Assessed -Color (Kari-wound Skin Appearance) Assessed -Temperature (Kari-wound Skin No Abnormality Appearance) (Pt Warm) -Tenderness on Palpation (Kari-wound Yes Skin Appearance) -Ulcer Cleansing Rinsed/ Rinsed/ Irrigated with Irrigated with Saline Saline -Foul Odor after Cleansing No No -Anesthetic Used 5% Lidocaine 5% Lidocaine Gel Gel WC - Nurse 2 - General Ulcer CM Notes Start: 03/28/21 10:04 Freq: Status: Active Protocol: Activity Type Activity Date Activity User E-Sign Co-Sign Detail Recorded Client Recorded Date Recorded By Document 03/28/21 10:22 MW [id number] 03/28/21 10:26 MW Document 04/04/21 10:45 MW [id number] 04/04/21 10:49 MW 03/28/21 04/04/21 10:22 10:45 Wound Center Nurse 2 #2- MID BACK (OLD INCISION SITE) -Time 10:23 10:46 -Correct Patient Yes Yes -Correct Side, Site, Position Yes Yes -Correct Procedure Yes Yes -Procedure Performed Yes Yes -Type of Procedure Debridement Debridement -Clinical Debridement Subcutaneous Subcutaneous -Tissue Removed Subcutaneous Subcutaneous -Post Debridement (cm) - Length 0.2 0.8 -Post Debridement (cm) - Width 0.2 0.4 -Post Debridement (cm) - Depth 0.2 0.3 -Total Square (Post) (cm) 0.04 0.32 -Area of Debridement (cm) - Length 0.2 0.8 -Area of Debridement (cm) - Width 0.2 0.4 -Total Square (Area) (cm) 0.04 0.32 -Tunneling Yes No -Tunneling Position (O'clock) 12 -Tunneling Distance (cm) 1.6 -Undermining/Tunneling No No -Circular Undermining No No -Wound/Ulcer Outcome Not Healed Not Healed -Ulcer Cleansing Rinsed/ Rinsed/ Irrigated with Irrigated with Saline Saline -Foul Odor after Cleansing No No -Bioengineered Tissue No No -Bleeding Controlled with Pressure -Offloading No -Treatment Response Procedure Tolerated Well -Debridement - Subq, 1st 20sq cm Yes Yes Pain Scale: 0-10 Numeric Is Patient Pain Free? Yes Yes WC - Nurse 3 - General Ulcer D/C NN Start: 03/28/21 10:04 Freq: Status: Active Protocol: Activity Type Activity Date Activity User E-Sign Co-Sign Detail Recorded Client Recorded Date Recorded By Document 03/28/21 10:27 MW [id number] 03/28/21 10:28 MW Document 04/04/21 10:49 MW [id number] 04/04/21 10:50 MW 03/28/21 04/04/21 10:27 10:49 Wound Care Nurse 3 #2- MID BACK (OLD INCISION SITE) -Ulcer Cleansing Wound Cleanser -Foul Odor after Cleansing No No -Negative Pressure Wound Therapy N/A N/A -Primary Dressing Applied Aquacel AG 4x4 -Primary Dressing Covered/Secured with Dry Gauze, Dry Gauze, Secured with Secured with Tape Tape -Aquacel AG 4x4 1 Treatment Response Procedure Procedure Tolerated Well Tolerated Well Pain Scale: 0-10 Numeric Is Patient Pain Free? Yes Yes Teaching: Wound Center Dressing Your Wound -Person Taught Patient Patient -Teaching Method Discussion, Discussion, Demonstration Demonstration -Response to teaching Verbalize Verbalize understanding understanding WC - Visit Discharge Discharge Condition Stable Stable Ambulatory Status Ambulatory, Ambulatory, Walker Walker Transportation Private Auto Private Auto Accompanied by self self Medication Reconcilliation completed & No No provided to patient/care provider Clinical Summary of Care Provided Yes Yes Wound debrided: Open wound lower back dehisced surgical wound Type of Debridement: Excisional debridement Anesthesia Used: 5% Lidocaine Gel Depth: Down to and including healthy tissue and in the subcutaneous layer Percentage of wound debrided: 100 Instrument Used: 3mm curette Tissue Removed: Fibrin Amount of bleeding with debridement: Moderate Bleeding Controlled with: Compression and gauze Patient tolerated procedure: Patient tolerated procedure well Assessment/Plan Assessment/Plan (1) Malnutrition: CODE(S): E46 - Unspecified protein-calorie malnutrition QUALIFIERS: Malnutrition type: protein-calorie malnutrition Protein-calorie malnutrition severity: moderate Qualified Code(s): E44.0 - Moderate protein-calorie malnutrition (2) Dehiscence of surgical wound: CODE(S): T81.31XA - Disruption of external operation (surgical) wound, not elsewhere classified, initial encounter QUALIFIERS: Encounter type: subsequent encounter Qualified Code(s): T81.31XD - Disruption of external operation (surgical) wound, not elsewhere classified, subsequent encounter PLAN: Wash the area with antibacteria soap and pack with quarter-inch iodoform gauze . cover with folded 4 x 4 2 x 2 paper tape to be done every other day follow up 1 week (3) Cervical spinal stenosis: CODE(S): M48.02 - Spinal stenosis, cervical region
[2021-04-11 10:05] VITALS: BP 118/66; TEMP 36.2; BMI 36.8
--- NOTE | 2021-04-11 11:17 | PCM.WC.PN ---
History of Present Illness Date of Service: 04/11/21 Chief Complaint: follow up lower back opening History of Wound: Back surgery in 2018 and the wound has never closed. Recently had a abcess and had it drained in the ED .She has been on 3 cycles of antibiotics and currently doing nothing for it. History of malnutrition have been drinking protein shakes we are going to try to get that repeated Progress of Wound: The wound opening is no smaller and she is complaining of increased pain with packing with the iodoform quarter-inch strips. Very friable bleeding easily. Subjective Subjective Complaining of increased pain Objective Data Objective Data Size is about the same still has tunneling rechecking malnutrition with a prealbumin. Sees her surgeon next week we will follow up with her in 2 weeks Vital Signs: Vital Signs Temp Pulse Resp BP 97.1 F L 69 16 118/66 04/11/21 10:05 04/04/21 10:17 04/04/21 10:17 04/11/21 10:05 Oxygen Delivery Method Room Air Weight: 214 lb Body Mass Index (BMI) 36.8 Physical Exam Const oriented x3 General Appearance: cooperative Exam Limitations: no limitations Resp normal respiratory effort Effort and Inspection: able to speak in complete sentences Auscultation: clear to auscultation bilaterally Cardio regular rate and regular rhythm Palpation: normal PMI Rate: regular rate Rhythm: regular rhythm Back/Spine Cervical Spine: cervical ROM normal Thoracic Spine / Upper Back: normal to inspection Lumbar Spine / Lower Back: normal to inspection Skin Wounds: wounds noted Psych Appearance: grossly normal Speech: normal speech Thought Content: normal thought content Judgement: judgement good Debridement Note Debridement Note Post-Debridement Measurements and Additional Note: Post-Debridement Measurements/Treatment - Nurse 1 - General Ulcer Assessment Start: 03/28/21 10:04 Freq: Status: Active Protocol: [email or web address] Activity Type Activity Date Activity User E-Sign Co-Sign Detail Recorded Client Recorded Date Recorded By Document 03/28/21 10:04 PL [id number] 03/28/21 10:12 PL Document 04/04/21 10:17 BM [id number] 04/04/21 10:18 BMF Document 04/11/21 10:05 KR [id number] 04/11/21 10:08 KR 03/28/21 04/04/21 04/11/21 10:04 10:17 10:05 - Today's Visit Information Type of service Follow-up Visit Follow-up Visit Follow-up Visit (Physician/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 (Physician/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 (Physician/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 ELECTRICIAN ) ) ) Arrival Mode Walker Ambulatory, Ambulatory Walker Transfer Assistance None None Patient Identification Verified (Name & Yes Yes Yes ) Patient Requires Transmission-Based No No Precautions Safety Precautions NA Height and Weight Body Mass Index (BMI) 36.8 36.8 36.8 BMI Classification Obese Obese Obese Vital Signs Temperature (97.8 F-99.1 F) 97.5 F L 97.4 F L 97.1 F L Temperature Source Temporal Temporal Temporal Pulse Rate (60-100) 66 69 Pulse Location Monitor Respiratory Rate (12-18) 18 16 Respiratory rate source Observation Oxygen Delivery Method Room Air Blood Pressure (90/60-120/80) 102/55 L 139/60 H 118/66 Blood Pressure Mean (mm Hg) 70 86 83 Source Monitor Monitor Position Sitting Semi-Fowlers Blood Pressure Location Left Arm Right Arm History Since Last Visit- (Skip if this is Patient's initial visit) Have you changed medications since your No No last visit? Any new allergies or adverse reactions No No Had a fall/change in ADL's that may No No increase risk of falls Signs or symptoms of abuse and/or No No neglect since last visit Have you been in the hospital since your No No last visit? Has dressing in place as prescribed Yes Yes Has compression in place as prescribed N/A N/A Has offloadiing in place as prescribed N/A N/A Experienced any changes in pain level or No No management Left Footwear Regular Shoe Regular Shoe Right Footwear Regular Shoe Regular Shoe Pain Scale: 0-10 Numeric Is Patient Pain Free? Yes Yes Yes - Nurse 1 - General Ulcer Measurement Start: 03/28/21 10:04 Freq: Status: Active Protocol: Activity Type Activity Date Activity User E-Sign Co-Sign Detail Recorded Client Recorded Date Recorded By Document 03/28/21 10:04 PL [id number] 03/28/21 10:12 PL Document 04/04/21 10:17 BMF [id number] 04/04/21 10:18 BMF Document 04/11/21 10:05 KR [id number] 04/11/21 10:08 KR 03/28/21 04/04/21 04/11/21 10:04 10:17 10:05 Wound Center Nurse 1 #2- MID BACK (OLD INCISION SITE) -Combined with other wound No No -Current Size (cm) - Length 0.2 0.5 0.8 -Current Size (cm) - Width 0.2 0.5 0.5 -Current Size (cm) - Depth 0.3 0.4 0.3 -Total Square Cm 0.04 0.25 0.40 -Photo Taken No No -Epithelialization None Present None Present -Tunneling No No -Tunneling Position (O'clock) 1 -Tunneling Distance (cm) 2.1 -Undermining/Tunneling No Yes -Undermining/Tunneling Starts (O'clock 12 ) -Undermining/Tunneling Ends (O'clock) 1 -Maximum Distance (cm) 1.3 -Circular Undermining No No -Exudate Amt Medium Medium Medium -Exudate Type Serosanguineous Serosanguineous Serosanguineous -Wound Margin Distinct, Distinct, Outline Outline Attached Attached -Granulation Amt Medium (34-66%) Large (67-100%) Medium (34-66%) -Granulation Quality [place] Red Red -Slough/Fibrin Yes No -Necrosis Amt Medium (34-66%) None Present (0 Medium (34-66%) %) -Necrotic Tissue Type Adherent Slough Adherent Slough -Texture (Kari-wound Skin Appearance) Assessed, Assessed, Scarring Scarring -Moisture (Kari-wound Skin Appearance) Assessed No Abnormality, Assessed -Color (Kari-wound Skin Appearance) Assessed No Abnormality, Assessed -Temperature (Kari-wound Skin No Abnormality No Abnormality Appearance) (Pt Warm) (Pt Warm) -Tenderness on Palpation (Kari-wound Yes No Skin Appearance) -Ulcer Cleansing Rinsed/ Rinsed/ Rinsed/ Irrigated with Irrigated with Irrigated with Saline Saline Saline -Foul Odor after Cleansing No No No -Anesthetic Used 5% Lidocaine 5% Lidocaine 5% Lidocaine Gel Gel Gel WC - Nurse 2 - General Ulcer CM Notes Start: 03/28/21 10:04 Freq: Status: Active Protocol: Activity Type Activity Date Activity User E-Sign Co-Sign Detail Recorded Client Recorded Date Recorded By Document 03/28/21 10:22 MW [id number] 03/28/21 10:26 MW Document 04/04/21 10:45 MW [id number] 04/04/21 10:49 MW Document 04/11/21 10:19 MW [id number] 04/11/21 10:20 MW 03/28/21 04/04/21 04/11/21 10:22 10:45 10:19 Wound Center Nurse 2 #2- MID BACK (OLD INCISION SITE) -Time 10:23 10:46 10:19 -Correct Patient Yes Yes Yes -Correct Side, Site, Position Yes Yes Yes -Correct Procedure Yes Yes Yes -Procedure Performed Yes Yes Yes -Type of Procedure Debridement Debridement Debridement -Clinical Debridement Subcutaneous Subcutaneous Subcutaneous -Tissue Removed Subcutaneous Subcutaneous Subcutaneous -Post Debridement (cm) - Length 0.2 0.8 0.6 -Post Debridement (cm) - Width 0.2 0.4 0.5 -Post Debridement (cm) - Depth 0.2 0.3 0.3 -Total Square (Post) (cm) 0.04 0.32 0.30 -Area of Debridement (cm) - Length 0.2 0.8 0.6 -Area of Debridement (cm) - Width 0.2 0.4 0.5 -Total Square (Area) (cm) 0.04 0.32 0.30 -Tunneling Yes No Yes -Tunneling Position (O'clock) 12 12 -Tunneling Distance (cm) 1.6 2.3 -Undermining/Tunneling No No No -Circular Undermining No No No -Wound/Ulcer Outcome Not Healed Not Healed Not Healed -Ulcer Cleansing Rinsed/ Rinsed/ Rinsed/ Irrigated with Irrigated with Irrigated with Saline Saline Saline -Foul Odor after Cleansing No No No -Bioengineered Tissue No No No -Bleeding Controlled with Pressure Pressure -Offloading No No -Treatment Response Procedure Procedure Tolerated Well Tolerated Well -Debridement - Subq, 1st 20sq cm Yes Yes Yes Pain Scale: 0-10 Numeric Is Patient Pain Free? Yes Yes WC - Nurse 3 - General Ulcer D/C NN Start: 03/28/21 10:04 Freq: Status: Active Protocol: Activity Type Activity Date Activity User E-Sign Co-Sign Detail Recorded Client Recorded Date Recorded By Document 03/28/21 10:27 MW [id number] 03/28/21 10:28 MW Document 04/04/21 10:49 MW [id number] 04/04/21 10:50 MW Document 04/11/21 10:20 MW [id number] 04/11/21 10:20 MW 03/28/21 04/04/21 04/11/21 10:27 10:49 10:20 Wound Care Nurse 3 #2- MID BACK (OLD INCISION SITE) -Ulcer Cleansing Wound Cleanser Rinsed/ Irrigated with Saline -Foul Odor after Cleansing No No No -Negative Pressure Wound Therapy N/A N/A N/A -Primary Dressing Applied Aquacel AG 4x4 Nugauze, Plain Iodoform -Primary Dressing Covered/Secured with Dry Gauze, Dry Gauze, Dry Gauze, Secured with Secured with Secured with Tape Tape Tape -Aquacel AG 4x4 1 -Nugauze, Plain Iodoform 1/4 1 Treatment Response Procedure Procedure Procedure Tolerated Well Tolerated Well Tolerated Well Pain Scale: 0-10 Numeric Is Patient Pain Free? Yes Yes Yes Teaching: Wound Center Dressing Your Wound -Person Taught Patient Patient -Teaching Method Discussion, Discussion, Demonstration Demonstration -Response to teaching Verbalize Verbalize understanding understanding WC - Visit Discharge Discharge Condition Stable Stable Stable Ambulatory Status Ambulatory, Ambulatory, Ambulatory, Walker Walker Walker Transportation Private Auto Private Auto Private Auto Accompanied by self self self Medication Reconcilliation completed & No No No provided to patient/care provider Clinical Summary of Care Provided Yes Yes Yes Wound debrided: Lower back surgical dehisced wound Type of Debridement: Excisional debridement Anesthesia Used: 5% Lidocaine Gel Depth: Down to and including healthy tissue Percentage of wound debrided: 100 Instrument Used: 3mm curette Tissue Removed: Fibrin Severity: Limited To Skin Breakdown Bleeding Controlled with: Pressure Patient tolerated procedure: Patient tolerated procedure well Assessment/Plan Assessment/Plan (1) Malnutrition: CODE(S): E46 - Unspecified protein-calorie malnutrition QUALIFIERS: Malnutrition type: protein-calorie malnutrition Protein-calorie malnutrition severity: moderate Qualified Code(s): E44.0 - Moderate protein-calorie malnutrition (2) Dehiscence of surgical wound: CODE(S): T81.31XA - Disruption of external operation (surgical) wound, not elsewhere classified, initial encounter QUALIFIERS: Encounter type: subsequent encounter Qualified Code(s): T81.31XD - Disruption of external operation (surgical) wound, not elsewhere classified, subsequent encounter PLAN: Wash the area with antibacteria soap and pack with quarter-inch iodoform gauze . cover with folded 4 x 4 2 x 2 paper tape to be done every other day follow up 2 week (3) Morbid obesity with BMI of 40.0-44.9, adult: CODE(S): E66.01 - Morbid (severe) obesity due to excess calories; Z68.41 - Body mass index [BMI]40.0-44.9, adult
== END 2021-04-21 23:59 ==
LOC: WC 10:00
PROVIDERS: PCP Family Medicine; Visit Provider Nurse Practitioner
DX: T81.31XA Disruption of external operation (surgical) wound, not elsewhere classified, initial encounter (principal); Y83.9 Surgical procedure, unspecified as the cause of abnormal reaction of the patient, or of later complication, without mention of misadventure at the time of the procedure; M48.02 Spinal stenosis, cervical region; E66.01 Morbid (severe) obesity due to excess calories; Z68.41 Body mass index [BMI] 40.0-44.9, adult
CPT/HCPCS: 11042

== ENCOUNTER → 2021-04-17 | Outpatient (CLI) | payer MEDICARE, OTHER, SELFPAY ==
[2021-04-11 10:05] VITALS: BMI 36.8
[2021-04-17 17:21] LABS: Prealbumin 20.3 mg/dL (20.0-40.0)
== END | disposition home or self-care (01) ==
LOC: LABSPEC 16:31
PROVIDERS: PCP Family Medicine; Visit Provider Nurse Practitioner
DX: E46 Unspecified protein-calorie malnutrition (principal)
CPT/HCPCS: 84134

== ENCOUNTER 2021-05-16 10:30 | Outpatient (RCR) | payer MEDICARE, OTHER, SELFPAY ==
[2021-04-22 00:29] VITALS: BP 118/66; PULSE 69; RESP 16; TEMP 36.2
[2021-04-25 10:46] VITALS: BP 112/52; PULSE 72; TEMP 36.4; BMI 36.8
--- NOTE | 2021-04-25 12:00 | PCM.WC.PN ---
History of Present Illness Date of Service: 04/25/21 Chief Complaint: follow up lower back opening History of Wound: Back surgery in 2018 and the wound has never closed. Recently had a abcess and had it drained in the ED .She has been on 3 cycles of antibiotics and currently doing nothing for it. 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 They are going to remove all the hardware and start over. Patient has been having a lot more bleeding and pain from the site Subjective Subjective Complains of bleeding and pain at the site Objective Data Objective Data The site is smaller in tunneling and bleeds easily and is clean no odor no erythema noted. The wound is improving Vital Signs: Vital Signs Temp Pulse Resp BP 97.6 F L 72 16 112/52 L 04/25/21 10:46 04/25/21 10:46 04/22/21 00:29 04/25/21 10:46 Weight: 214 lb Body Mass Index (BMI) 36.8 Physical Exam Const oriented x3 General Appearance: cooperative Exam Limitations: no limitations Resp normal respiratory effort Effort and Inspection: able to speak in complete sentences Auscultation: clear to auscultation bilaterally Cardio regular rate and regular rhythm Palpation: normal PMI Rate: regular rate Rhythm: regular rhythm Back/Spine Cervical Spine: cervical ROM normal Thoracic Spine / Upper Back: normal to inspection Lumbar Spine / Lower Back: normal to inspection Skin Wounds: wounds noted Psych Appearance: grossly normal Speech: normal speech Thought Content: normal thought content Judgement: judgement good Debridement Note Debridement Note Post-Debridement Measurements and Additional Note: Post-Debridement Measurements/Treatment - Nurse 1 - General Ulcer Assessment Start: 04/25/21 10:46 Freq: Status: Active Protocol: .LOWEXT Activity Type Activity Date Activity User E-Sign Co-Sign Detail Recorded Client Recorded Date Recorded By Document 04/25/21 10:46 SHILOH [id number] 04/25/21 10:48 SHILOH 04/25/21 10:46 - Today's Visit Information Type of service Follow-up Visit (Physician/ELEMENTARY SCHOOL TEACHER'S AIDE ) Arrival Mode Ambulatory, Walker Patient Identification Verified (Name & Yes ) Height and Weight Body Mass Index (BMI) 36.8 BMI Classification Obese Vital Signs Temperature (97.8 F-99.1 F) 97.6 F L Temperature Source Temporal Pulse Rate (60-100) 72 Pulse Location Monitor Blood Pressure (90/60-120/80) 112/52 L Blood Pressure Mean (mm Hg) 72 Source Monitor History Since Last Visit- (Skip if this is Patient's initial visit) Have you changed medications since your No last visit? Any new allergies or adverse reactions No Had a fall/change in ADL's that may No increase risk of falls Signs or symptoms of abuse and/or No neglect since last visit Have you been in the hospital since your No last visit? Has dressing in place as prescribed Yes Has compression in place as prescribed N/A Has offloadiing in place as prescribed N/A Experienced any changes in pain level or No management Left Footwear Regular Shoe Right Footwear Regular Shoe WC - Nurse 1 - General Ulcer Measurement Start: 04/25/21 10:46 Freq: Status: Active Protocol: Activity Type Activity Date Activity User E-Sign Co-Sign Detail Recorded Client Recorded Date Recorded By Document 04/25/21 10:46 SHILOH [id number] 04/25/21 10:48 SHILOH 04/25/21 10:46 Wound Center Nurse 1 #2- MID BACK (OLD INCISION SITE) -Combined with other wound No -Current Size (cm) - Length 0.3 -Current Size (cm) - Width 0.4 -Current Size (cm) - Depth 0.7 -Total Square Cm 0.12 -Photo Taken No -Epithelialization None Present -Tunneling No -Undermining/Tunneling No -Circular Undermining No -Exudate Type Serosanguineous -Wound Margin Distinct, Outline Attached -Granulation Amt Small (1-33%) -Granulation Quality Red -Slough/Fibrin Yes -Necrosis Amt None Present (0 %) -Texture (Kari-wound Skin Appearance) No Abnormality, Assessed -Moisture (Kari-wound Skin Appearance) No Abnormality, Assessed -Color (Kari-wound Skin Appearance) No Abnormality, Assessed -Temperature (Kari-wound Skin No Abnormality Appearance) (Pt Warm) -Ulcer Cleansing Rinsed/ Irrigated with Saline -Foul Odor after Cleansing No -Anesthetic Used 5% Lidocaine Gel WC - Nurse 2 - General Ulcer CM Notes Start: 04/25/21 10:46 Freq: Status: Active Protocol: Activity Type Activity Date Activity User E-Sign Co-Sign Detail Recorded Client Recorded Date Recorded By Document 04/25/21 10:53 MW [id number] 04/25/21 10:57 MW 04/25/21 10:53 Wound Center Nurse 2 -Time 10:54 -Correct Patient Yes -Correct Side, Site, Position Yes -Correct Procedure Yes -Procedure Performed Yes -Type of Procedure Debridement -Clinical Debridement Subcutaneous -Tissue Removed Subcutaneous -Post Debridement (cm) - Length 0.3 -Post Debridement (cm) - Width 0.2 -Post Debridement (cm) - Depth 0.3 -Total Square (Post) (cm) 0.06 -Area of Debridement (cm) - Length 0.3 -Area of Debridement (cm) - Width 0.2 -Total Square (Area) (cm) 0.06 -Tunneling No -Undermining/Tunneling No -Circular Undermining No -Wound/Ulcer Outcome Not Healed -Ulcer Cleansing Rinsed/ Irrigated with Saline -Foul Odor after Cleansing No -Bioengineered Tissue No -Bleeding Controlled with Pressure -Offloading No -Treatment Response Procedure Tolerated Well -Debridement - Subq, 1st 20sq cm Yes Pain Scale: 0-10 Numeric Is Patient Pain Free? Yes - Nurse 3 - General Ulcer D/C NN Start: 04/25/21 10:46 Freq: Status: Active Protocol: Activity Type Activity Date Activity User E-Sign Co-Sign Detail Recorded Client Recorded Date Recorded By Document 04/25/21 10:57 MW [id number] 04/25/21 10:58 MW 04/25/21 10:57 Wound Care Nurse 3 #2- MID BACK (OLD INCISION SITE) -Ulcer Cleansing Rinsed/ Irrigated with Saline -Foul Odor after Cleansing No -Negative Pressure Wound Therapy N/A -Other Dressing / iodoform -Primary Dressing Covered/Secured with Dry Gauze, Secured with Tape Treatment Response Procedure Tolerated Well Pain Scale: 0-10 Numeric Is Patient Pain Free? Yes Teaching: Wound Center Dressing Your Wound -Person Taught Patient -Teaching Method Discussion, Demonstration -Response to teaching Verbalize understanding WC - Visit Discharge Discharge Condition Stable Ambulatory Status Ambulatory, Walker Transportation Private Auto Accompanied by self Medication Reconcilliation completed & No provided to patient/care provider Clinical Summary of Care Provided Yes Wound debrided: Back dehisced wound Type of Debridement: Excisional debridement Anesthesia Used: 5% Lidocaine Gel Depth: Down to and including healthy tissue and in the subcutaneous layer Percentage of wound debrided: 100 Instrument Used: 3mm curette Severity: Fat Layer Exposed Amount of bleeding with debridement: Mild Bleeding Controlled with: Pressure Patient tolerated procedure: Patient tolerated procedure well Assessment/Plan Assessment/Plan (1) Malnutrition: CODE(S): E46 - Unspecified protein-calorie malnutrition QUALIFIERS: Malnutrition type: protein-calorie malnutrition Protein-calorie malnutrition severity: moderate Qualified Code(s): E44.0 - Moderate protein-calorie malnutrition PLAN: Resolved patient has gone from 11.8-20.1 (2) Dehiscence of surgical wound: CODE(S): T81.31XA - Disruption of external operation (surgical) wound, not elsewhere classified, initial encounter QUALIFIERS: Encounter type: subsequent encounter Qualified Code(s): T81.31XD - Disruption of external operation (surgical) wound, not elsewhere classified, subsequent encounter PLAN: Wash the area with antibacteria soap and pack with quarter-inch iodoform gauze . cover with folded 4 x 4 2 x 2 paper tape to be done every other day follow up 2 week (3) Morbid obesity with BMI of 40.0-44.9, adult: CODE(S): E66.01 - Morbid (severe) obesity due to excess calories; Z68.41 - Body mass index [BMI]40.0-44.9, adult
[2021-05-16 10:27] VITALS: BP 118/60; PULSE 74; TEMP 36.1; BMI 36.8
--- NOTE | 2021-05-16 12:29 | PN.PCM_ITS ---
History of Present Illness Date of Service: 05/16/21 Chief Complaint: follow up lower back opening History of Wound: Back surgery in 2018 and the wound has never closed. Recently had a abcess and had it drained in the ED .She has been on 3 cycles of antibiotics and currently doing nothing for it. 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 The surgery is scheduled for May 29. They are going to remove all the hardware and start over. Patient has been having a lot more bleeding and pain from the site Suggested to patient that she does not need to come back anymore but we will continue seeing her for home health care purposes until her surgery but they can only lightly pack the wound since she is going to have it all removed anyways its increasing in her pain. Subjective Subjective She complained of increased pain with the site and increase in bleeding Objective Data Objective Data The measurements were slightly larger on the back wound lightly packed ahead suggested they lightly pack and just continue treatments until she is seen by surgery to maintain cleanliness to the area Vital Signs: Vital Signs Temp Pulse Resp BP 97.0 F L 74 16 118/60 05/16/21 10:27 05/16/21 10:27 04/22/21 00:29 05/16/21 10:27 Weight: 214 lb Body Mass Index (BMI) 36.8 Physical Exam Const oriented x3 General Appearance: cooperative Exam Limitations: no limitations Resp normal respiratory effort Effort and Inspection: able to speak in complete sentences Auscultation: clear to auscultation bilaterally Cardio regular rate and regular rhythm Palpation: normal PMI Rate: regular rate Rhythm: regular rhythm Back/Spine Cervical Spine: cervical ROM normal Thoracic Spine / Upper Back: normal to inspection Lumbar Spine / Lower Back: normal to inspection Skin Wounds: wounds noted Psych Appearance: grossly normal Speech: normal speech Thought Content: normal thought content Judgement: judgement good Debridement Note Debridement Note Post-Debridement Measurements and Additional Note: Post-Debridement Measurements/Treatment CHANDRIKA - Nurse 1 - General Ulcer Assessment Start: 04/25/21 10:46 Freq: Status: Active Protocol: PANKAJ Activity Type Activity Date Activity User E-Sign Co-Sign Detail Recorded Client Recorded Date Recorded By Document 04/25/21 10:46 AK [id number] 04/25/21 10:48 AK Document 05/16/21 10:27 FAYE [id number] 05/16/21 10:29 KR 04/25/21 05/16/21 10:46 10:27 - Today's Visit Information Type of service Follow-up Visit Follow-up Visit (Physician/AUTOMATIC EQUIPMENT TECHNICIAN (Physician/AUTOMATIC EQUIPMENT TECHNICIAN ) ) Arrival Mode Ambulatory, Walker Walker Patient Identification Verified (Name & Yes Yes ) Height and Weight Body Mass Index (BMI) 36.8 36.8 BMI Classification Obese Obese Vital Signs Temperature (97.8 F-99.1 F) 97.6 F L 97.0 F L Temperature Source Temporal Temporal Pulse Rate (60-100) 72 74 Pulse Location Monitor Monitor Blood Pressure (90/60-120/80) 112/52 L 118/60 Blood Pressure Mean (mm Hg) 72 79 Source Monitor Monitor Position Sitting Blood Pressure Location Right Arm History Since Last Visit- (Skip if this is Patient's initial visit) Have you changed medications since your No No last visit? Any new allergies or adverse reactions No No Had a fall/change in ADL's that may No No increase risk of falls Signs or symptoms of abuse and/or No No neglect since last visit Have you been in the hospital since your No No last visit? Has dressing in place as prescribed Yes Yes Has compression in place as prescribed N/A N/A Has offloadiing in place as prescribed N/A N/A Experienced any changes in pain level or No No management Left Footwear Regular Shoe Right Footwear Regular Shoe Pain Scale: 0-10 Numeric Is Patient Pain Free? Yes - Nurse 1 - General Ulcer Measurement Start: 04/25/21 10:46 Freq: Status: Active Protocol: Activity Type Activity Date Activity User E-Sign Co-Sign Detail Recorded Client Recorded Date Recorded By Document 04/25/21 10:46 SHILOH [id number] 04/25/21 10:48 AK Document 05/16/21 10:27 FAYE [id number] 05/16/21 10:29 KR 04/25/21 05/16/21 10:46 10:27 Wound Center Nurse 1 #2- MID BACK (OLD INCISION SITE) -Combined with other wound No -Current Size (cm) - Length 0.3 0.3 -Current Size (cm) - Width 0.4 0.2 -Current Size (cm) - Depth 0.7 0.3 -Total Square Cm 0.12 0.06 -Photo Taken No -Epithelialization None Present -Tunneling No -Undermining/Tunneling No -Undermining/Tunneling Starts (O'clock 11 ) -Undermining/Tunneling Ends (O'clock) 1 -Maximum Distance (cm) 1.5 -Circular Undermining No -Exudate Amt Medium -Exudate Type Serosanguineous Serosanguineous -Wound Margin Distinct, Distinct, Outline Outline Attached Attached -Granulation Amt Small (1-33%) Medium (34-66%) -Granulation Quality Red Red -Slough/Fibrin Yes -Necrosis Amt None Present (0 Medium (34-66%) %) -Necrotic Tissue Type Adherent Slough -Texture (Kari-wound Skin Appearance) No Abnormality, Assessed, Assessed Scarring -Moisture (Kari-wound Skin Appearance) No Abnormality, Assessed, Assessed Maceration -Color (Kari-wound Skin Appearance) No Abnormality, No Abnormality, Assessed Assessed -Temperature (Kari-wound Skin No Abnormality No Abnormality Appearance) (Pt Warm) (Pt Warm) -Tenderness on Palpation (Kari-wound No Skin Appearance) -Ulcer Cleansing Rinsed/ Rinsed/ Irrigated with Irrigated with Saline Saline -Foul Odor after Cleansing No No -Anesthetic Used 5% Lidocaine 5% Lidocaine Gel Gel WC - Nurse 2 - General Ulcer CM Notes Start: 04/25/21 10:46 Freq: Status: Active Protocol: Activity Type Activity Date Activity User E-Sign Co-Sign Detail Recorded Client Recorded Date Recorded By Document 04/25/21 10:53 MW [id number] 04/25/21 10:57 MW Document 05/16/21 10:49 MW [id number] 05/16/21 10:52 MW 04/25/21 05/16/21 10:53 10:49 Wound Center Nurse 2 #2- MID BACK (OLD INCISION SITE) -Time 10:54 10:50 -Correct Patient Yes Yes -Correct Side, Site, Position Yes Yes -Correct Procedure Yes Yes -Procedure Performed Yes Yes -Type of Procedure Debridement Debridement -Clinical Debridement Subcutaneous Subcutaneous -Tissue Removed Subcutaneous Subcutaneous -Post Debridement (cm) - Length 0.3 0.6 -Post Debridement (cm) - Width 0.2 0.3 -Post Debridement (cm) - Depth 0.3 0.4 -Total Square (Post) (cm) 0.06 0.18 -Area of Debridement (cm) - Length 0.3 0.6 -Area of Debridement (cm) - Width 0.2 0.3 -Total Square (Area) (cm) 0.06 0.18 -Tunneling No Yes -Tunneling Position (O'clock) 12 -Tunneling Distance (cm) 2.5 -Undermining/Tunneling No No -Circular Undermining No No -Wound/Ulcer Outcome Not Healed Not Healed -Ulcer Cleansing Rinsed/ Rinsed/ Irrigated with Irrigated with Saline Saline -Foul Odor after Cleansing No No -Bioengineered Tissue No No -Bleeding Controlled with Pressure Pressure -Offloading No No -Treatment Response Procedure Procedure Tolerated Well Tolerated Well -Debridement - Subq, 1st 20sq cm Yes Yes Pain Scale: 0-10 Numeric Is Patient Pain Free? Yes Yes - Nurse 3 - General Ulcer D/C NN Start: 04/25/21 10:46 Freq: Status: Active Protocol: Activity Type Activity Date Activity User E-Sign Co-Sign Detail Recorded Client Recorded Date Recorded By Document 04/25/21 10:57 MW [id number] 04/25/21 10:58 MW Document 05/16/21 10:53 MW [id number] 05/16/21 10:55 MW 04/25/21 05/16/21 10:57 10:53 Wound Care Nurse 3 #2- MID BACK (OLD INCISION SITE) -Ulcer Cleansing Rinsed/ Rinsed/ Irrigated with Irrigated with Saline Saline -Foul Odor after Cleansing No No -Negative Pressure Wound Therapy N/A N/A -Other Dressing 1/4 iodoform 1/4 iodoform -Primary Dressing Covered/Secured with Dry Gauze, Dry Gauze, Secured with Secured with Tape Tape Treatment Response Procedure Procedure Tolerated Well Tolerated Well Pain Scale: 0-10 Numeric Is Patient Pain Free? Yes Yes Teaching: Wound Center Dressing Your Wound -Person Taught Patient Patient -Teaching Method Discussion, Discussion Demonstration -Response to teaching Verbalize Verbalize understanding understanding WC - Visit Discharge Discharge Condition Stable Stable Ambulatory Status Ambulatory, Ambulatory, Walker Walker Transportation Private Auto Private Auto Accompanied by self self Medication Reconcilliation completed & No No provided to patient/care provider Clinical Summary of Care Provided Yes Yes Wound debrided: Mid back dehisced wound Type of Debridement: Excisional debridement Anesthesia Used: 5% Lidocaine Gel Depth: Down to and including healthy tissue and in the subcutaneous layer Percentage of wound debrided: 100 Instrument Used: 3mm curette Tissue Removed: Fibrin Severity: Fat Layer Exposed Amount of bleeding with debridement: Mild Bleeding Controlled with: Compression and gauze Patient tolerated procedure: Patient tolerated procedure well Assessment/Plan Assessment/Plan (1) Malnutrition: CODE(S): E46 - Unspecified protein-calorie malnutrition QUALIFIERS: Malnutrition type: protein-calorie malnutrition Protein-calorie malnutrition severity: moderate Qualified Code(s): E44.0 - Moderate protein-calorie malnutrition PLAN: Resolved patient has gone from 11.8-20.1 (2) Dehiscence of surgical wound: CODE(S): T81.31XA - Disruption of external operation (surgical) wound, not elsewhere classified, initial encounter QUALIFIERS: Encounter type: subsequent encounter Qualified Code(s): T81.31XD - Disruption of external operation (surgical) wound, not elsewhere classified, subsequent encounter PLAN: Wash the area with antibacteria soap and pack with quarter-inch iodoform gauze . cover with folded 4 x 4 2 x 2 paper tape to be done every other day No need to follow-up till surgery we will cover you for home health care till then. Continue with treatments till seen by surgery (3) Morbid obesity with BMI of 40.0-44.9, adult: CODE(S): E66.01 - Morbid (severe) obesity due to excess calories; Z68.41 - Body mass index [BMI]40.0-44.9, adult
== END 2021-05-22 23:59 ==
LOC: WC 10:30
PROVIDERS: PCP Family Medicine; Visit Provider Nurse Practitioner
DX: T81.31XA Disruption of external operation (surgical) wound, not elsewhere classified, initial encounter (principal); Y83.9 Surgical procedure, unspecified as the cause of abnormal reaction of the patient, or of later complication, without mention of misadventure at the time of the procedure; Z68.41 Body mass index [BMI] 40.0-44.9, adult; E66.01 Morbid (severe) obesity due to excess calories
CPT/HCPCS: 11042

== ENCOUNTER 2022-07-30 07:27 | Inpatient (IN) | payer MEDICARE, OTHER, SELFPAY ==
[2022-07-30] VITALS (22 sets, daily range): BP systolic 98–228; BP diastolic 52–100; PULSE 72–94; RESP 11–153; TEMP 36.2–38; O2SAT 86–100; BMI 39.4; BMI 38.9
--- NOTE | 2022-07-30 07:37 | EKG12_ITS ---
Test Reason : CP Blood Pressure : / mmHG Vent. Rate : 072 BPM Atrial Rate : 072 BPM P-R Int : 164 ms QRS Dur : 090 ms QT Int : 376 ms P-R-T Axes : 060 012 075 degrees QTc Int : 411 ms Normal sinus rhythm Nonspecific ST abnormality Abnormal ECG Confirmed by DEBORAH ROMERO, CÉSAR ([id number]), video editor TIMA WICK ([id number]) on 07/31/2022 11:10:49 AM Referred By: CARLOS Confirmed By:CÉSAR CABRERA MD
--- NOTE | 2022-07-30 07:38 | ED.VIS.CHEST ---
HPI History of Present Illness Chief Complaint: Chest Pain Narrative Narrative: Patient presents with epigastric pain since last night. Chief complaint says chest pain but patient's pain is mostly in the epigastrium. It does not radiate to her back. She has no shortness of breath. She has no pleuritic component. She has no fevers chills cough or congestion. No radiation to arm neck or any other region. It has been constant for about 12 hours. She describes it as indigestion. [facility] Medical History Dehiscence of surgical wound GERD (gastroesophageal reflux disease) Hypertension Morbid obesity with BMI of 40.0-44.9, adult Osteoarthritis Peripheral neuropathy Restless leg syndrome Home Medications potassium chloride 10 mEq tablet,extended release(part/cryst) 10 meq PO BID supplement 06/07/18 [History Last Taken Unknown] gabapentin 400 mg capsule 300 mg PO TID migraines 06/10/18 [History Last Taken 06/12/18 08:00] multivitamin with folic acid 400 mcg tablet (Thera) 1 tab PO DAILY 08/01/18 [History Last Taken Unknown] Coreg 12.5 mg PO BID 11/24/18 [History Last Taken Unknown] Levothyroxine 75 mcg PO DAILY 11/24/18 [History Last Taken Unknown] hydrALAZINE 25 mg PO BID 11/24/18 [History Last Taken Unknown] apixaban 5 mg tablet 5 mg PO BID 08/13/20 [History Last Taken Unknown] famotidine 20 mg tablet 20 mg PO BID 07/30/22 [History Last Taken Unknown] Allergy/AdvReac Type Severity Reaction Status Date / Time COVID-19 vaccine, mRNA, Allergy Anaphylaxis Verified 07/30/22 07:37 [id number], erythromycin base Allergy Rash Verified 07/30/22 07:28 [Erythromycin Base] lisinopril Allergy Swelling Verified 07/30/22 07:28 venom-wasp [wasp] Allergy NEEDS Verified 07/30/22 07:28 FOLLOW-UP amlodipine AdvReac Swelling Verified 07/30/22 07:28 latex AdvReac Swelling Verified 07/30/22 07:28 Family History Mother Hypertension Surgical History History of partial nephrectomy History of tonsillectomy History of total abdominal hysterectomy History of total knee arthroplasty Social History Smoking Status: Never smoker ROS ROS ED ROS Narrative Past medical history: Reviewed Medications: Reviewed Social history: Noncontributory Review of systems: All systems negative except as indicated General: No fever Eyes: No visual changes ENT: No upper airway congestion, normal voice Neck: No neck pain Cardiovascular: No chest pain, her pain is in the epigastrium Respiratory: No shortness of breath or cough, no pleuritic component Gastrointestinal: Epigastric pain. No nausea vomiting or diarrhea. Genitourinary: No dysuria Musculoskeletal: Denies myalgias no difficulty with ambulation Skin: No rash Neurological: No memory loss, confusion or any focal weakness Psych: No recent behavioral changes Hematologic: No easy bleeding or easy bruising EXAM Physical Exam Narrative Exam Narrative: Physical exam General: Well nourished, Well developed, No Acute Distress she is relatively comfortable in the bed. Head: Normocephalic, Atraumatic Eyes: Conjunctiva not pale ENT: Moist mucous membranes Neck: Supple, Nontender, No lymphadenopathy Cardiovascular: Regular rate, Regular rhythm Respiratory: No distress, CTA bilaterally Abdomen: Soft, mostly epigastric and left upper quadrant pain. The epigastric pain is reproducible on palpation. No significant right upper quadrant pain. Negative Diggs's no lower abdominal pain. No guarding or rebound. Back: Nontender, Normal Inspection. Negative for: CVA tenderness Extremities: Nontender, No edema Skin: Normal color, No rash Neurological: Alert, Normal Strength, Normal Sensation Psychological: Normal affect Const Vital Signs: 07/30/22 07:29 07/30/22 08:04 07/30/22 08:04 Temperature 97.2 F L Temperature Source Temporal Pulse Rate 72 Respiratory Rate 18 Respiratory Effort Normal Non-Labored Blood Pressure 224/92 H 228/92 H Blood Pressure Mean 136 137 Pulse Ox 99 Oxygen Delivery Method Room Air 07/30/22 09:30 07/30/22 10:50 07/30/22 11:26 Temperature Temperature Source Pulse Rate 78 73 77 Respiratory Rate 14 16 15 Respiratory Effort Blood Pressure 207/92 H 197/91 H 181/86 H Blood Pressure Mean 130 126 117 Pulse Ox 96 95 96 Oxygen Delivery Method Room Air Room Air Room Air [facility] MDM Lab Data Labs: Laboratory Results - last 24 hr 07/30/22 07/30/22 07:50 07:50 WBC 4.4 RBC 4.15 L Hgb 12.7 Hct 39.3 MCV 94.7 MCH 30.6 MCHC 32.3 RDW Std Deviation 47.2 H RDW Coeff of [place] 13.8 Plt Count 114 L MPV 9.8 Immature Gran % (Auto) 0.200 Neut % (Auto) 74.5 H Lymph % (Auto) 11.3 L [place] % (Auto) 7.2 Eos % (Auto) 6.3 H Baso % (Auto) 0.5 Absolute Neuts (auto) 3.3 Absolute Lymphs (auto) 0.50 L Nucleated RBC % 0 Differential Comment SCANNED Sodium 140 Potassium 3.9 Chloride 106 Carbon Dioxide 29.0 Anion Gap 5 BUN 9 Creatinine 0.62 Estim Creat Clear Calc 36.67 Est GFR (MDRD) Af Amer 119 Est GFR (MDRD) Non-Af 99 BUN/Creatinine Ratio 14.5 Glucose 109 H Calcium 9.2 Total Bilirubin 0.50 AST 15 ALT 11 L Alkaline Phosphatase 74 Troponin I High Sens 6 Total Protein 6.3 L Albumin 3.1 L Globulin 3.2 Albumin/Globulin Ratio 1.0 Lipase 124 Radiography Diagnostic Testing: Clinical Impression(s) from Imaging Studies Chest X-Ray 07/30/22 08:05 IMPRESSION: Stable examination. No acute abnormality is seen. Electronically Signed: Osman Almanzar MD at 8:37 EST , Abdomen/Pelvis CT 07/30/22 08:18 IMPRESSION: Multiple gallstones. Gallbladder wall thickening and pericholecystic fluid. Acute cholecystitis should be ruled out. Electronically Signed: Osman Almanzar MD at 9:28 EST , Gallbladder Ultrasound 07/30/22 09:46 IMPRESSION: Multiple gallstones with gallbladder wall thickening and pericholecystic fluid. Electronically Signed: Osman Almanzar MD at 10:50 EST , Chest x-ray read by me is normal. EKG Initial EKG: Comments: Sinus rhythm with a rate of 72. Normal DC and QTc intervals. No ischemic changes other than some slight nonspecific ST changes throughout. Interpreted by emergency doctor. Treatment and Re-Evaluation Narrative: Patient is found to have gallbladder disease, she does not have a white count however she is on chemotherapy. She is also anticoagulated. I discussed with surgery since I believe she likely has cholecystitis due to multiple stones possible early obstruction and pericholecystic fluid. Patient will need admission, will talk to medicine for admission. Gallo was given Discharge Plan Triage Chief Complaint: Chest Pain ED Provider: Nabil Berrios Dx/Rx/DC Orders Clinical Impression: Acute cholecystitis, Non Hodgkin's lymphoma, Abdominal pain Prescriptions: No Action potassium chloride 10 MEQ tablet 10 meq PO BID gabapentin 400 MG capsule 300 mg PO TID multivitamin with folic acid [Thera] 1 TABLET tablet 1 tab PO DAILY Coreg 12.5 mg PO BID Levothyroxine 75 mcg PO DAILY hydrALAZINE 25 mg PO BID apixaban 5 MG tablet 5 mg PO BID famotidine 20 mg Tablet 20 mg PO BID Primary Care Provider: Ever Kilgore Referrals: Ever Kilgore MD [Primary Care Provider] - Disposition Disposition: Acute Care Hospital [facility]
[2022-07-30] MEDS: Famotidine 200 MG/20 ML MDV 20 MG in 0.9% Normal Saline (Pres. free 8 ML 300 MG IV (07:54)
[2022-07-30 08:05] LABS: Absolute Neutrophil Count 3.3 X10^3/uL (2.0-7.7); Basophil# 0.02 X10^3/uL; Basophil% 0.5 % (0-1); Eosinophil# 0.28 X10^3/uL; Eosinophils% 6.3 % (0-5); Hematocrit 39.3 % (37-47); Hemoglobin 12.7 g/dL (12.0-15.0); Lymphocyte % 11.3 % (19-41); Mean Corp Hgb Conc 32.3 g/dL (32-36); Mean Corpuscular Hgb 30.6 pg (27.0-32.0); Mean Corpuscular Volume 94.7 fL (81-99); Mean Platelet Vol. 9.8 fl (6.2-12.0); Monocyte# 0.32 X10^3/uL; Monocyte% 7.2 % (0-10); NRBC Flagged by Analyzer 0 % (0-5); Neutrophil # 3.29 X10^3/uL (2.7-7.7); Neutrophil % 74.5 % (47-70); POSITIVE DIFFERENTIAL YES; Platelet Count 114 K/mm3 (150-450); RBC Distribution Width CV 13.8 % (11.6-14.6); RBC Distribution Width SD 47.2 fl (35.1-43.9); Red Blood Count 4.15 M/mm3 (4.2-5.4); White Blood Count 4.4 K/mm3 (4.4-11.0)
--- NOTE | 2022-07-30 08:05 | RAD_ITS ---
STUDY: X-RAY CHEST REASON FOR EXAM: Female, 76 years old. Abd pain TECHNIQUE: Single AP portable view of the chest. COMPARISON: Comparison is made with prior study dated 03/21/2021. FINDINGS: A right-sided portacatheter is seen with the tip in the proximal portion of the superior vena cava. EKG electrodes are seen. The lungs are clear and expanded. Scattered calcified granulomas. There is no demonstrated pleural abnormality. Normal size heart. Normal mediastinum and favian. Normal visualized pulmonary arteries. Normal visualized aortic arch and descending thoracic aorta. There are diffuse degenerative changes of the visualized thoracic spine. Dextroscoliosis. Normal visualized ribs, clavicles, and shoulders. There is no demonstrated abnormality of the visualized soft tissue structures of the upper abdomen. RAD/Chest 1 View (Portable) IMPRESSION: Stable examination. No acute abnormality is seen. Electronically Signed: Osman Almanzar MD at 8:37 EST ,
[2022-07-30] MEDS: Labetalol (Prefilled) 20 MG/4 ML 10 MG IV (08:14)
[2022-07-30 08:16] LABS: Differential Indicated SCAN CRITERIA MET
--- NOTE | 2022-07-30 08:18 | CT_ITS ---
STUDY: CT ABDOMEN AND PELVIS WITH CONTRAST REASON FOR EXAM: Female, 76 years old. Epigastric pain. Hypertension. RADIATION DOSAGE (If Supplied By Facility): CTDIvol = ( 19.9 ) mGy, DLP = ( 1229.32 ) mGycm TECHNIQUE: Transaxial images were obtained from the dome of the diaphragm to the symphysis pubis without oral contrast. 100ML ISOVUE 300 was administered. Sagittal and coronal images were reconstructed. Individualized dose optimization techniques were used for this CT. COMPARISON: Comparison is made with prior study dated 11/18/2017. FINDINGS: The visualized lung bases are unremarkable. Coronary artery calcification. Normal liver. There are multiple gallstones. There is evidence of gallbladder wall thickening. Small amount of pericholecystic fluid with increased markings in the surrounding peritoneal fat. Acute cholecystitis should be ruled out. There are multiple benign calcified granulomata of the spleen. Normal pancreas. Normal bilateral adrenal glands. Normal right kidney. Normal left kidney. Normal visualized stomach. Normal small intestine. Normal colon. There is non-visualization of the appendix. There is scattered atherosclerotic calcification of the abdominal aorta, without a demonstrated aneurysm. There is an IVC filter in place. Normal retroperitoneum. Normal urinary bladder. There is absence of the uterus consistent with a prior hysterectomy. Normal abdominal wall. There are diffuse degenerative changes of the visualized lumbar spine. There is loss of the normal lumbar lordosis. CT/Abdomen/Pelvis W IV Cont ONLY IMPRESSION: Multiple gallstones. Gallbladder wall thickening and pericholecystic fluid. Acute cholecystitis should be ruled out. Electronically Signed: Osman Almanzar MD at 9:28 EST ,
[2022-07-30] MEDS: Morphine 4 MG/ML Syringe IV ×3 (08:22→12:27)
[2022-07-30] MEDS: Ondansetron 4 MG/2 ML Vial IV ×2 (08:22→10:55)
[2022-07-30 08:24] LABS: AST(SGOT) 15 U/L (15-37); Alanine Aminotransfer ALT/SGPT 11 U/L (13-56); Albumin, Serum 3.1 g/dL (3.2-5.0); Alkaline Phosphatase 74 U/L (45-117); Anion Gap 5 (5-15); BUN 9 mg/dL (7-18); BUN/Creat Ratio 14.5 RATIO (10-20); Calcium,Total 9.2 mg/dL (8.5-10.1); Chloride 106 mmol/L (98-107); Creatinine, Serum 0.62 mg/dL (0.55-1.02); EST Glomerular Filtration Rate 99 mL/min (>60); Est Glom Filt Rate - Afr Amer 119 mL/min (>60); Estimated Creatinine Clearance 36.67 ml/min; Globulin 3.2 g/dL (2.2-4.2); Glucose 109 mg/dL (74-106); Lipase 124 U/L (73-393); Potassium 3.9 mmol/L (3.5-5.1); Protein, Total 6.3 g/dL (6.4-8.2); Sodium Level 140 mmol/L (136-145); Troponin-I HS 6 pg/mL (3.0-54.0)
[2022-07-30 08:57] LABS: Differential Comment SCANNED
--- NOTE | 2022-07-30 09:46 | US_ITS ---
STUDY: ABDOMINAL ULTRASOUND - RIGHT UPPER QUADRANT REASON FOR VISIT: Female, 76 years old right upper quadrant pain. TECHNIQUE: Ultrasound evaluation of the right upper quadrant was performed with real-time and static goff-scale imaging. TECHNICAL QUALITY: Adequate. COMPARISON: Comparison is made with prior CT scan of the pelvis done earlier in the day. FINDINGS: Liver: The liver measures 14.8 cm. There is normal echogenicity of the liver. The bile ducts are within normal limits. There is hepatic color flow. The direction of portal flow is hepatopetal. There is no demonstrated mass lesion. Gallbladder: Normal distended gallbladder. The gallbladder wall is thickened and measures 5.7 mm. There is a positive sonographic Diggs''s sign. There is pericholecystic fluid. There are multiple echogenic structures within the gallbladder, consistent with multiple gallstones. Common Bile Duct (C.B.D.): The common bile duct measures 3.2 mm. Pancreas: There is nonvisualization of the pancreas due to overlying bowel gas. Right Kidney: Normal size of the right kidney. The right kidney measures 10.6 cm x 3.7 cm x 4.8 cm. Normal renal cortex. The right cortex measures 1.5 cm. There is no demonstrated renal mass or cyst. There is no right hydronephrosis. US/Gallbladder IMPRESSION: Multiple gallstones with gallbladder wall thickening and pericholecystic fluid. Electronically Signed: Osman Almanzar MD at 10:50 EST ,
--- NOTE | 2022-07-30 12:26 | HP.PCM.HOS_ITS ---
[facility] - General General Date of Admission: 07/30/22 Date of Service: 07/30/22 Chief Complaint: epigastric pain. HPI Narrative AYAZ HERNANDEZ, is a 76 F with a PMH as outlined who presents via the ED with a complaint of epigastric pain. Her symptoms had been going on for about 12 hours, with no aggravating or relieving factors, and was colicky in nature. She had no fever, chills, cough or any other symptoms. She denied any vomiting but admitted to nausea. Review of systems was otherwise negative. She is on chemotherapy for NHL and says she has had one session so far. Vitals were BP of 181/86, VA of 77 and RR of 15; she is on room air and saturating at 96%. CBC shwoed hb of 12.7, wbc of 4.4 and platelets of 114. Chemistry was essentially WNL. CT abdomen and pelvis showed multiple gallstones with gallbladder wall thickening and pericholecystic fluid. Gallbladder USG showed multiple gallstones with gallbladder wall thickening and pericholecystic fluid. She is being admitted to be managed for acute cholecystitis. [facility] Medical History (Updated 07/30/22 @ 14:45 by Daniela Flynn) Dehiscence of surgical wound GERD (gastroesophageal reflux disease) Hypertension Morbid obesity with BMI of 40.0-44.9, adult Osteoarthritis Ovarian tumor Peripheral neuropathy Restless leg syndrome Home Medications potassium chloride 10 mEq tablet,extended release(part/cryst) 10 meq PO BID supplement 06/07/18 [History Last Taken 07/29/22] multivitamin with folic acid 400 mcg tablet (Thera) 1 tab PO DAILY 08/01/18 [History Last Taken 07/29/22] apixaban 5 mg tablet 5 mg PO BID 08/13/20 [History Last Taken 07/29/22] carvedilol 12.5 mg tablet (Coreg) 12.5 mg PO BID heart 07/30/22 [History Last Taken 07/29/22] famotidine 20 mg tablet 20 mg PO DAILY 07/30/22 [History Last Taken 07/29/22] gabapentin 300 mg capsule 300 mg PO TID 07/30/22 [History Last Taken 07/29/22] levothyroxine 75 mcg tablet 75 mcg PO DAILY thyroid 07/30/22 [History Last Taken 07/29/22] Allergy/AdvReac Type Severity Reaction Status Date / Time COVID-19 vaccine, mRNA, Allergy Anaphylaxis Verified 07/30/22 07:37 [id number], erythromycin base Allergy Rash Verified 07/30/22 07:28 [Erythromycin Base] lisinopril Allergy Swelling Verified 07/30/22 07:28 venom-wasp [wasp] Allergy NEEDS Verified 07/30/22 07:28 FOLLOW-UP amlodipine AdvReac Swelling Verified 07/30/22 07:28 latex AdvReac Swelling Verified 07/30/22 07:28 Family History Mother Hypertension Surgical History (Updated 07/30/22 @ 14:45 by Daniela Flynn) H/O laminectomy History of partial nephrectomy History of tonsillectomy History of total abdominal hysterectomy History of total knee arthroplasty Social History Smoking Status: Never smoker ROS Constitutional Constitutional: Reports fatigue, malaise and weakness; Denies anorexia, chills or fever(s) Eyes Eyes: Denies change in vision ENT HEENT: Denies dysphagia or sore throat Cardiovascular Cardiovascular: Denies chest pain, dyspnea on exertion, edema, lightheadedness, orthopnea, palpitations, paroxysmal nocturnal dyspnea or rapid heart rate Respiratory/Chest Respiratory/Chest: Denies cough, dyspnea, productive cough, shortness of breath at rest or shortness of breath with exertion Gastrointestinal Gastrointestinal: Reports abdominal pain and nausea; Denies coffee ground e mesis, constipation, diarrhea, dyspepsia, hematemesis, hematochezia, loose stools, melena or vomiting Genitourinary Genitourinary: Denies burning urination or dysuria Musculoskeletal Musculoskeletal: Denies arthralgias Neurologic Neurologic: Denies confusion, dizziness, focal weakness, headache(s), numbness, seizures, syncope or tremor(s) Psychiatric Psychiatric: Denies anxiety Hematologic/Lymphatic Hematologic/Lymphatic: Denies anemia Vital Signs Vital Signs Vital Signs: 07/30/22 07:29 07/30/22 08:04 07/30/22 08:04 Temperature 97.2 F L Temperature Source Temporal Pulse Rate 72 Respiratory Rate 18 Respiratory Effort Normal Non-Labored Blood Pressure 224/92 H 228/92 H Blood Pressure Mean 136 137 Pulse Ox 99 Oxygen Delivery Method Room Air 11/08/22 09:30 07/30/22 10:50 07/30/22 11:26 Temperature Temperature Source Pulse Rate 78 73 77 Respiratory Rate 14 16 15 Respiratory Effort Blood Pressure 207/92 H 197/91 H 181/86 H Blood Pressure Mean 130 126 117 Pulse Ox 96 95 96 Oxygen Delivery Method Room Air Room Air Room Air Weight Weight: 216 lb Body Mass Index (BMI) 39.4 Physical Exam Const alert, oriented x3 and no apparent distress General Appearance: cooperative HEENT normocephalic, head/scalp atraumatic, hearing grossly normal bilaterally and moist oral mucous membranes Mouth: oral and palatal mucosa normal Eyes PERRL, EOMs intact bilaterally and conjunctivae normal Neck no lymphadenopathy and supple Resp normal respiratory effort, no retractions, no use of accessory muscles and clear to auscultation bilaterally Cardio regular rate, regular rhythm, S1 normal heart sound, S2 normal heart sound and no murmurs GI GI Narrative: abdomen soft, moderate epigastric tenderness, no guarding or rebound tenderness, positive Diggs's sign. Extremity normal to inspection, full ROM and no clubbing, cyanosis or edema Neuro oriented x3, CN's II-XII intact bilaterally, moves all extremities and no focal motor deficits Sensorium / Orientation: awake and alert Motor Exam: strength 5/5 throughout Psych affect normal Results Lab / Micro Data Result Diagrams: 07/30/22 07:50 07/30/22 07:50 Labs: Laboratory Results - last 24 hr 07/30/22 07:50: WBC 4.4, RBC 4.15 L, Hgb 12.7, Hct 39.3, MCV 94.7, MCH 30.6, MCHC 32.3, RDW Std Deviation 47.2 H, RDW Coeff of [place] 13.8, Plt Count 114 L, MPV 9.8, Immature Gran % (Auto) 0.200, Neut % (Auto) 74.5 H, Lymph % (Auto) 11.3 L, [place] % (Auto) 7.2, Eos % (Auto) 6.3 H, Baso % (Auto) 0.5, Absolute Neuts (auto) 3.3, Absolute Lymphs (auto) 0.50 L, Nucleated RBC % 0, Differential Comment SCANNED 07/30/22 07:50: Sodium 140, Potassium 3.9, Chloride 106, Carbon Dioxide 29.0, Anion Gap 5, BUN 9, Creatinine 0.62, Estim Creat Clear Calc 36.67, Est GFR (MDRD) Af Amer 119, Est GFR (MDRD) Non-Af 99, BUN/Creatinine Ratio 14.5, Glucose 109 H, Calcium 9.2, Total Bilirubin 0.50, AST 15, ALT 11 L, Alkaline Phosphatase 74, Troponin I High Sens 6, Total Protein 6.3 L, Albumin 3.1 L, Globulin 3.2, Albumin/Globulin Ratio 1.0, Lipase 124 Radiology Impression Chest X-Ray 07/30/22 08:05 IMPRESSION: Stable examination. No acute abnormality is seen. Electronically Signed: Osman Almanzar MD at 8:37 EST , Abdomen/Pelvis CT 07/30/22 08:18 IMPRESSION: Multiple gallstones. Gallbladder wall thickening and pericholecystic fluid. Acute cholecystitis should be ruled out. Electronically Signed: Osman Almanzar MD at 9:28 EST , Gallbladder Ultrasound 07/30/22 09:46 IMPRESSION: Multiple gallstones with gallbladder wall thickening and pericholecystic fluid. Electronically Signed: Osman Almanzar MD at 10:50 EST , Assessment & Plan Assessment/Plan (1) Acute cholecystitis: PLAN: Plan #Acute cholecystitis * admit to med surg * CT abdomen and pelvis showed multiple gallstones and gallbladder wall thickening as well as pericholecystic fluid. . * gallbladder USG showed similar findings with gallbladder wall thickening and pericholecystic fluid. * general surgery consulted * hyrate gently with iVF * keep NPO for now * IV morphine prn for pain. * IV Zosyn * #Non hodgkin's lymphoma * On chemotherapy. Follow-up with oncology on outpatient basis. * #History of DVT: on eliquis. will hold for now. #Hypothyroidism: on synthroid #Hypertension: on carvedilol DVT prophylaxis: SCDs CODE STATUS:full code * Patient and daughter counseled extensively about different types of CODE STATUS including full code, DNR CCA and DNR CCA. Patient elects to be full code. * Total [id number] time 17 minutes. Charges/Coding Visit Charges Inpatient E&M: 50354 Init Hosp L3 Procedures Hospitalists Procedures: 81801 Advncd Care Plan 30 Min
--- NOTE | 2022-07-30 12:31 | CON.PCM.SX_ITS ---
Assessment & Plan Assessment/Plan (1) Acute cholecystitis: (2) Non Hodgkin's lymphoma: (3) Anticoagulant long-term use: PLAN: Plan Due to patient's Eliquis would not do surgery until Friday. Patient last took her Eliquis last night. Patient is having increased pain right upper quadrant/epigastric which is only tolerable with continual pain meds. Dr. Almanzar her radiologist was agreeable to put a cholecystostomy tube in which should improve patient's discomfort until were able to let the Eliquis wear off for surgery. Patient and her daughter were agreeable with plan. IV Zosyn due to acute cholecystitis. N.p.o. today?okay for sips after cholecystostomy placed. May give clear liquids tomorrow Discussed with patient she would not be having her treatment for lymphoma which last 1 was 4 weeks ago due to that infection with cholecystitis as well as then surgery to allow for healing. Patient does see Dr. Escudero Reviewed the anatomy with the patient and her daughter and discussed the procedure: laparoscopic cholecystectomy with possible cholangiograms, possible open. Review risks including but not limited to bleeding, infection, hernia, bile leak, retained gallstones requiring another procedure ERCP- Endoscopic Retrograde Cholangiopancreatography, injury to another organ (bile ducts, common bile duct, small bowel, etc.) and conversion to an open procedure. All questions were answered. Surgery is planned for Friday at 7:30 AM. Kaylen Gonzalez M.D. Pager: [phone] [facility] [address] [place] [address], [address] [place] [address] Office: [phone] HPI Consult Data Date of Consult: 07/31/22 HPI Narrative HPI Narrative: AYAZ HERNANDEZ, is a 76 F who presents to the ER due to epigastric/right upper quadrant pain that got worse last night. Patient has known gallstones and has been having issues with her gallbladder for quite some time per the patient and her daughter. Patient's white blood cell count patient 13 patient was given IV Zosyn in the ER. Patient CT abdomen pelvis did show pericholecystic fluid and ultrasound also confirmed this with thickening of the gallbladder wall at 5.7 mm. Patient states her pain is a 7-8/10 currently and has been needing pain meds about every couple hours in the ER. [facility] Medical History (Updated 07/30/22 @ 14:45 by Daniela Flynn) Dehiscence of surgical wound GERD (gastroesophageal reflux disease) Hypertension Morbid obesity with BMI of 40.0-44.9, adult Osteoarthritis Ovarian tumor Peripheral neuropathy Restless leg syndrome Home Medications potassium chloride 10 mEq tablet,extended release(part/cryst) 10 meq PO BID s upplement 06/07/18 [History Last Taken 07/29/22] multivitamin with folic acid 400 mcg tablet (Thera) 1 tab PO DAILY 08/01/18 [History Last Taken 07/29/22] apixaban 5 mg tablet 5 mg PO BID 08/13/20 [History Last Taken 07/29/22] carvedilol 12.5 mg tablet (Coreg) 12.5 mg PO BID heart 07/30/22 [History Last Taken 07/29/22] famotidine 20 mg tablet 20 mg PO DAILY 07/30/22 [History Last Taken 07/29/22] gabapentin 300 mg capsule 300 mg PO TID 07/30/22 [History Last Taken 07/29/22] levothyroxine 75 mcg tablet 75 mcg PO DAILY thyroid 07/30/22 [History Last Taken 07/29/22] Allergy/AdvReac Type Severity Reaction Status Date / Time COVID-19 vaccine, mRNA, Allergy Anaphylaxis Verified 07/30/22 07:37 [id number], erythromycin base Allergy Rash Verified 07/30/22 07:28 [Erythromycin Base] lisinopril Allergy Swelling Verified 07/30/22 07:28 venom-wasp [wasp] Allergy NEEDS Verified 07/30/22 07:28 FOLLOW-UP amlodipine AdvReac Swelling Verified 07/30/22 07:28 latex AdvReac Swelling Verified 07/30/22 07:28 Family History Mother Hypertension Surgical History (Updated 07/30/22 @ 14:45 by Daniela Flynn) H/O laminectomy History of partial nephrectomy History of tonsillectomy History of total abdominal hysterectomy History of total knee arthroplasty Social History Smoking Status: Never smoker ROS Constitutional Constitutional: Reports anorexia; Denies fever(s) Eyes Eyes: Denies change in vision ENT HEENT: Denies dysphagia Cardiovascular Cardiovascular: Denies dyspnea Respiratory/Chest Respiratory/Chest: Denies cough Gastrointestinal Gastrointestinal: Reports abdominal pain and nausea; Denies melena or vomiting Genitourinary Genitourinary: Denies dysuria Musculoskeletal Musculoskeletal: Denies joint swelling Integumentary Integumentary: Denies jaundice Neurologic Neurologic: Denies focal weakness Psychiatric Psychiatric: Denies depression Endocrine Endocrinology: Denies palpitations Hematologic/Lymphatic Hematologic/Lymphatic: Reports easy bruising Physical Exam Const alert, oriented x3 and no apparent distress HEENT normocephalic and head/scalp atraumatic Resp normal respiratory effort Cardio regular rate GI soft to palpation; Negative for non-distended Palpation: tender epigastric and RUQ; Negative for guarding Extremity no clubbing, cyanosis or edema Neuro CN's II-XII intact bilaterally Psych mental status grossly normal Lab / Micro Data Result Diagrams: 07/31/22 06:10 07/30/22 07:50 Labs: Laboratory Results - last 24 hr 07/30/22 07:50: WBC 4.4, RBC 4.15 L, Hgb 12.7, Hct 39.3, MCV 94.7, MCH 30.6, MCHC 32.3, RDW Std Deviation 47.2 H, RDW Coeff of [place] 13.8, Plt Count 114 L, MPV 9.8, Immature Gran % (Auto) 0.200, Neut % (Auto) 74.5 H, Lymph % (Auto) 11.3 L, [place] % (Auto) 7.2, Eos % (Auto) 6.3 H, Baso % (Auto) 0.5, Absolute Neuts (auto) 3.3, Absolute Lymphs (auto) 0.50 L, Nucleated RBC % 0, Differential Comment SCANNED 07/30/22 07:50: Sodium 140, Potassium 3.9, Chloride 106, Carbon Dioxide 29.0, Anion Gap 5, BUN 9, Creatinine 0.62, Estim Creat Clear Calc 36.67, Est GFR (MDRD) Af Amer 119, Est GFR (MDRD) Non-Af 99, BUN/Creatinine Ratio 14.5, Glucose 109 H, Calcium 9.2, Total Bilirubin 0.50, AST 15, ALT 11 L, Alkaline Phosphatase 74, Troponin I High Sens 6, Total Protein 6.3 L, Albumin 3.1 L, Globulin 3.2, Albumin/Globulin Ratio 1.0, Lipase 124 Radiology Impression Chest X-Ray 07/30/22 08:05 IMPRESSION: Stable examination. No acute abnormality is seen. Electronically Signed: Osman Almanzar MD at 8:37 EST , Abdomen/Pelvis CT 07/30/22 08:18 IMPRESSION: Multiple gallstones. Gallbladder wall thickening and pericholecystic fluid. Acute cholecystitis should be ruled out. Electronically Signed: Osman Almanzar MD at 9:28 EST , Gallbladder Ultrasound 07/30/22 09:46 IMPRESSION: Multiple gallstones with gallbladder wall thickening and pericholecystic fluid. Electronically Signed: Osman Almanzar MD at 10:50 EST , Charges/Coding Visit Charges Inpatient E&M: 85449 Init Hosp L3
--- NOTE | 2022-07-30 12:31 | CT_ITS ---
PROCEDURE: CT GUIDED percutaneous cholecystostomy. DATE: 07/30/2022. INDICATION: Female, 76 years old. Acute cholecystitis. PHYSICIAN: Osman Almanzar M.D. RADIATION DOSAGE (If Supplied By Facility): CTDIvol = ( 31 ) mGy, DLP = ( 1784.56 ) mGycm PROCEDURE: The risks, benefits, and alternatives to the procedure were explained to the patient. The specific risk of hemorrhage requiring further treatment or intervention was detailed and accepted. Follow-up instructions were discussed with the patient as well. Written informed consent was obtained. The patient was brought into the CT suite and placed in the supine position. . An appropriate entry site was identified. The overlying skin was prepped and draped in the usual sterile fashion. 1% lidocaine was administered subcutaneously for local anesthesia. Conscious sedation was performed. The patient received 1 mg of VERSED and 25 mcg of FENTANYL intravenously. Conscious sedation was started at 1:27 PM and terminated at 1:50 PM. The patient was independently monitored by the department nurse. Under CT guidance, a percutaneous cholecystostomy was performed utilizing a 8 Sami drainage catheter. 70 cc of purulent material was aspirated. The catheter was left in place. The patient tolerated the procedure well without immediate complications. CT/CT Guidance Abscess Drg w/Cath IMPRESSION: Successful CT guided percutaneous cholecystostomy with withdrawal of 70 cc of purulent material, as described above. The conscious sedation protocol was followed. Electronically Signed: Osman Almanzar MD at 14:52 EST ,
[2022-07-30] MEDS: Lidocaine 2% (20 ml mdv) 20 ML Vial (13:27)
[2022-07-30] MEDS: Midazolam 2 MG/2 ML Syringe IV (13:27)
[2022-07-30] MEDS: fentaNYL 100 MCG/2 ML Ampul IV (13:30)
--- NOTE | 2022-07-30 14:22 | NURSING ---
PATIENTS DAUGHTER CAMPOS INFORMED PATIENT TAKEN TO HER ROOM 315. ALL HER BELONGINGS SENT WITH PATIENT AND ADMISSION NURSE. NO FURTHER QUESTIONS
[2022-07-30] MEDS: Gabapentin 300 MG Capsule PO (18:29)
[2022-07-30] MEDS: 0.9% Normal Saline 1,000 ML 125 ML IV (18:29)
[2022-07-30] MEDS: Potassium Chloride Oral Tablet 10 MEQ PO (22:46)
[2022-07-30] MEDS: Acetaminophen 325 MG Tablet 650 MG PO (22:46)
[2022-07-31] VITALS (13 sets, daily range): BP systolic 105–111; BP diastolic 45–60; PULSE 66–79; RESP 15–18; TEMP 36.4–36.9; O2SAT 94–96
[2022-07-31] MEDS: 0.9% Normal Saline 1,000 ML 125 ML IV (03:51)
[2022-07-31] MEDS: Levothyroxine 75 MCG Tablet PO (04:07)
[2022-07-31] MEDS: Gabapentin 300 MG Capsule PO ×3 (04:08→20:22)
[2022-07-31 06:31] LABS: Absolute Lymphocyte Count 1.05 X10^3/uL (0.83-4.51); Absolute Neutrophil Count 4.4 X10^3/uL (2.0-7.7); Basophil# 0.01 X10^3/uL; Basophil% 0.2 % (0-1); Eosinophil# 0.17 X10^3/uL; Eosinophils% 2.7 % (0-5); Hematocrit 39.9 % (37-47); Hemoglobin 13.1 g/dL (12.0-15.0); Lymphocyte # 1.05 X10^3/ul (0.83-4.51); Lymphocyte % 16.5 % (19-41); Mean Corp Hgb Conc 32.8 g/dL (32-36); Mean Corpuscular Hgb 31.4 pg (27.0-32.0); Mean Corpuscular Volume 95.7 fL (81-99); Mean Platelet Vol. 9.9 fl (6.2-12.0); Monocyte# 0.67 X10^3/uL; Monocyte% 10.6 % (0-10); NRBC Flagged by Analyzer 0 % (0-5); Neutrophil # 4.42 X10^3/uL (2.7-7.7); Neutrophil % 69.5 % (47-70); Platelet Count 104 K/mm3 (150-450); RBC Distribution Width CV 14.2 % (11.6-14.6); RBC Distribution Width SD 49.1 fl (35.1-43.9); Red Blood Count 4.17 M/mm3 (4.2-5.4); White Blood Count 6.4 K/mm3 (4.4-11.0)
--- NOTE | 2022-07-31 06:57 | PN.SURG_ITS ---
Subjective Subjective Patient got cholecystostomy tube yesterday. Purulent was drained and sent for culture in IR. Patient states her abdomen is sore but does feel much better now. Objective Data Objective Data Vital Signs: Vital Signs Temp Pulse Resp BP Pulse Ox O2 Del Method O2 Flow Rate 97.5 F L 70 16 107/53 L 95 Room Air 1.5 07/31/22 03:52 07/31/22 03:52 07/31/22 03:52 07/31/22 03:52 07/31/22 03:52 07/31/22 04:02 07/31/22 03:52 Oxygen Flow Rate (L/min) [5] 2 Oxygen Flow Rate (L/min) [4] 2 Oxygen Flow Rate (L/min) [3] 2 Oxygen Flow Rate (L/min) [2] 2 Oxygen Flow Rate (L/min) 1.5 Oxygen Delivery Method [5] Room Air Oxygen Delivery Method [4] Nasal Cannula Oxygen Delivery Method [3] Nasal Cannula Oxygen Delivery Method [2] Nasal Cannula Oxygen Delivery Method [1 ( Room Air Initial Baseline)] Oxygen Delivery Method Room Air Weight: 212 lb 11.937 oz Body Mass Index (BMI) 38.9 Intake & Output: Intake and Output for Last 24 Hours 07/29/22 07/30/22 07/31/22 23:59 23:59 23:59 Intake Total 189.25 / 189.25 1050 / 1050 Output Total 90 / 160 210 / 210 Balance 99.25 / 29.25 840 / 840 Lab / Micro Data Result Diagrams: 07/31/22 06:10 07/30/22 07:50 Labs: Laboratory Results - last 24 hr 07/30/22 07:50: WBC 4.4, RBC 4.15 L, Hgb 12.7, Hct 39.3, MCV 94.7, MCH 30.6, MCHC 32.3, RDW Std Deviation 47.2 H, RDW Coeff of [place] 13.8, Plt Count 114 L, MPV 9.8, Immature Gran % (Auto) 0.200, Neut % (Auto) 74.5 H, Lymph % (Auto) 11.3 L, [place] % (Auto) 7.2, Eos % (Auto) 6.3 H, Baso % (Auto) 0.5, Absolute Neuts (auto) 3.3, Absolute Lymphs (auto) 0.50 L, Nucleated RBC % 0, Differential Comment SCANNED 07/30/22 07:50: Sodium 140, Potassium 3.9, Chloride 106, Carbon Dioxide 29.0, Anion Gap 5, BUN 9, Creatinine 0.62, Estim Creat Clear Calc 36.67, Est GFR (MDRD) Af Amer 119, Est GFR (MDRD) Non-Af 99, BUN/Creatinine Ratio 14.5, Glucose 109 H, Calcium 9.2, Total Bilirubin 0.50, AST 15, ALT 11 L, Alkaline Phosphatase 74, Troponin I High Sens 6, Total Protein 6.3 L, Albumin 3.1 L, Globulin 3.2, Albumin/Globulin Ratio 1.0, Lipase 124 07/31/22 06:10: WBC 6.4, RBC 4.17 L, Hgb 13.1, Hct 39.9, MCV 95.7, MCH 31.4, MCHC 32.8, RDW Std Deviation 49.1 H, RDW Coeff of [place] 14.2, Plt Count 104 L, MPV 9.9, Immature Gran % (Auto) 0.500, Neut % (Auto) 69.5, Lymph % (Auto) 16.5 L, [place] % (Auto) 10.6 H, Eos % (Auto) 2.7, Baso % (Auto) 0.2, Absolute Neuts (auto) 4.4, Absolute Lymphs (auto) 1.05, Nucleated RBC % 0 Radiography Diagnostic Testing: Radiology Impression Chest X-Ray 07/30/22 08:05 IMPRESSION: Stable examination. No acute abnormality is seen. Electronically Signed: Osman Almanzar MD at 8:37 EST , Abdomen/Pelvis CT 07/30/22 08:18 IMPRESSION: Multiple gallstones. Gallbladder wall thickening and pericholecystic fluid. Acute cholecystitis should be ruled out. Electronically Signed: Osman Almanzar MD at 9:28 EST , Gallbladder Ultrasound 07/30/22 09:46 IMPRESSION: Multiple gallstones with gallbladder wall thickening and pericholecystic fluid. Electronically Signed: Osman Almanzar MD at 10:50 EST , Abscess Drainage CT 07/30/22 12:31 IMPRESSION: Successful CT guided percutaneous cholecystostomy with withdrawal of 70 cc of purulent material, as described above. The conscious sedation protocol was followed. Electronically Signed: Osman Almanzar MD at 14:52 EST , Physical Exam Const alert, oriented x3 and no apparent distress HEENT normocephalic and head/scalp atraumatic Resp normal respiratory effort Cardio regular rate GI soft to palpation; Negative for non-distended GI Narrative: Tender in the right upper quadrant epigastric, RUSLAN in place. RUSLAN sanguinous--minimal in RUSLAN Palpation: Negative for guarding Extremity no clubbing, cyanosis or edema Neuro CN's II-XII intact bilaterally Psych mental status grossly normal Assessment & Plan Assessment/Plan (1) Acute cholecystitis: (2) Non Hodgkin's lymphoma: (3) Anticoagulant long-term use: PLAN: Plan Okay for clears until night midnight for OR Friday at 7:30 AM. IV Zosyn due to acute cholecystitis. Kaylen Gonzalez M.D. Pager: [phone] [facility] [address] [place] [address], [facility] [address] [place] [address] Office: [phone] Charges/Coding Visit Charges Inpatient E&M: 41523 Subs Hosp L2
[2022-07-31] MEDS: Famotidine 20 MG Tablet PO (08:51)
[2022-07-31] MEDS: Potassium Chloride Oral Tablet 10 MEQ PO ×2 (08:51→16:18)
[2022-07-31] MEDS: Multivitamins,Therapeutic Tablet 1 TABLET PO (08:51)
[2022-07-31] MEDS: Carvedilol 12.5 MG Tablet PO (08:51)
[2022-07-31 10:13] LABS: ALB/GLOB Ratio 0.9 RATIO (0.9-2.4); AST(SGOT) 14 U/L (15-37); Alanine Aminotransfer ALT/SGPT 9 U/L (13-56); Albumin, Serum 2.6 g/dL (3.2-5.0); Alkaline Phosphatase 63 U/L (45-117); Anion Gap 5 (5-15); BUN 17 mg/dL (7-18); BUN/Creat Ratio 11.5 RATIO (10-20); Calcium,Total 8.6 mg/dL (8.5-10.1); Chloride 105 mmol/L (98-107); Creatinine, Serum 1.48 mg/dL (0.55-1.02); EST Glomerular Filtration Rate 36 mL/min (>60); Est Glom Filt Rate - Afr Amer 44 mL/min (>60); Estimated Creatinine Clearance 24.78 ml/min; Glucose 124 mg/dL (74-106); Potassium 4.3 mmol/L (3.5-5.1); Protein, Total 5.6 g/dL (6.4-8.2); Sodium Level 139 mmol/L (136-145)
--- NOTE | 2022-07-31 10:30 | CASEMGMT ---
RN CM Face to Face with patient for initial transition planning/care coordination assessment. RN CM introduced self and role at [facility]. Patient sitting in chair, alert and oriented, sister in law at bedside. Patient willing to participate in assessment and is able to answer all questions appropriately. Care providers, pharmacy, and demographics verified. Patient wishes to discharge home. Will monitor progress with therapy, patient may benefit from HHC vs SNF. Patient states she has no further needs or concerns at this time. CM to follow for discharge planning needs that may arise. PCP: [facility] Specialists: Kena, oncologist; Lakesha, surgeon [facility] Benef[facility]: yes Living Will/HPOA: Daughter Shauna Wong LNOK: son, daughter Living Arrangements: Patient lives alone in a first floor apartment with no steps to enter. Patient states she is independent at home. Transportation: self, daughter, sister in law DME/HHC: Patient has shower chair, cane, rollator, grab bars, and cpap at home. Patient has had [facility] in the past. Patient has been to [facility] previously Disposition Plan: TBD, will monitor progress with therapy, patient may benefit from HHC vs SNF at discharge. Nancy COSTELLO, RN, CM
--- NOTE | 2022-07-31 10:41 | PN.HOSP_ITS ---
Subjective Subjective Doing well, feels much better now that she has the cholecystostomy tube in place Objective Data Objective Data Vital Signs: Vital Signs Temp Pulse Resp BP Pulse Ox O2 Del Method O2 Flow Rate 97.6 F L 66 15 111/60 95 Room Air 1.5 07/31/22 09:00 07/31/22 09:23 07/31/22 09:00 07/31/22 09:00 07/31/22 09:00 07/31/22 09:00 07/31/22 03:52 Oxygen Flow Rate (L/min) [5] 2 Oxygen Flow Rate (L/min) [4] 2 Oxygen Flow Rate (L/min) [3] 2 Oxygen Flow Rate (L/min) [2] 2 Oxygen Flow Rate (L/min) 1.5 Oxygen Delivery Method [5] Room Air Oxygen Delivery Method [4] Nasal Cannula Oxygen Delivery Method [3] Nasal Cannula Oxygen Delivery Method [2] Nasal Cannula Oxygen Delivery Method [1 ( Room Air Initial Baseline)] Oxygen Delivery Method Room Air Weight: 212 lb 11.937 oz Body Mass Index (BMI) 38.9 Intake & Output: Intake and Output for Last 24 Hours 07/30/22 07/31/22 08/01/22 03:59 03:59 03:59 Intake Total 1239.25 / 1239.25 50 / 50 Output Total 160 / 160 140 / 140 Balance 1079.25 / 1079.25 -90 / -90 Lab / Micro Data Result Diagrams: 07/31/22 06:10 07/31/22 06:10 Labs: Laboratory Results - last 24 hr 07/31/22 06:10: WBC 6.4, RBC 4.17 L, Hgb 13.1, Hct 39.9, MCV 95.7, MCH 31.4, MCHC 32.8, RDW Std Deviation 49.1 H, RDW Coeff of Medhat 14.2, Plt Count 104 L, MPV 9.9, Immature Gran % (Auto) 0.500, Neut % (Auto) 69.5, Lymph % (Auto) 16.5 L, [place] % (Auto) 10.6 H, Eos % (Auto) 2.7, Baso % (Auto) 0.2, Absolute Neuts (auto) 4.4, Absolute Lymphs (auto) 1.05, Nucleated RBC % 0 07/31/22 06:10: Sodium 139, Potassium 4.3, Chloride 105, Carbon Dioxide 29.0, Anion Gap 5, BUN 17, Creatinine 1.48 H, Estim Creat Clear Calc 24.78, Est GFR (MDRD) Af Amer 44 L, Est GFR (MDRD) Non-Af 36 L, BUN/Creatinine Ratio 11.5, Glucose 124 H, Calcium 8.6, Total Bilirubin 0.60, AST 14 L, ALT 9 L, Alkaline Phosphatase 63, Total Protein 5.6 L, Albumin 2.6 L, Globulin 3.0, Albumin/Globulin Ratio 0.9 Micro: Microbiology 07/30/22 Unknown Aspirate - Abdominal Wound Culture - Preliminary GNR 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 Electronically Signed: Osman Almanzar MD at 10:50 EST , Abscess Drainage CT 07/30/22 12:31 IMPRESSION: Successful CT guided percutaneous cholecystostomy with withdrawal of 70 cc of purulent material, as described above. The conscious sedation protocol was followed. Electronically Signed: Osman Almanzar MD at 14:52 EST , Physical Exam Narrative General: Alert, Oriented x3, Cooperative, No apparent distress HEENT: Atraumatic, PERRLA, EOMI, Normocephalic Oral: Moist Mucosa Neck: Supple, No JVD Lungs: Clear to auscultation, Normal air movement, No rhonchi, No wheeze, No rales Cardiovascular: Regular rate, Regular Rhythm, Normal S1, Normal S2, No murmurs Abdomen: Soft, tender around the cholecystostomy site, Non-Distended, No Hepato- splenomegaly Extremities: No edema, Capillary Refill Less than 3 Seconds Skin: No rashes, No breakdown Musculoskeletal: No Tenderness to Palpation of Joints or Extremities Neurological: Cranial nerves II-XII grossly intact, Motor Exam 5/5 strength throughout, Sensory exam intact to light touch and pain Psych/Mental Status: Normal Affect, Appropriate Assessment & Plan Assessment/Plan (1) Acute cholecystitis: (2) MARY (acute kidney injury): PLAN: Plan 1. Acute cholecystitis/MARY * CT abdomen and pelvis showed multiple gallstones and gallbladder wall thic kening as well as pericholecystic fluid. . * gallbladder USG showed similar findings with gallbladder wall thickening and pericholecystic fluid. * general surgery consulted plan for OR on Friday * Will monitor her creatinine comets up to 1.48 today. She is able to drink so we will see if she can improve her kidney function if not we will have to start her on IV fluids * Continue with clears, she will be n.p.o. night * IV morphine prn for pain. * IV Zosyn 2. Non hodgkin's lymphoma * On chemotherapy. Follow-up with oncology on outpatient basis. 3. History of DVT: on eliquis. will hold for surgery 4. Hypothyroidism: on synthroid 5. Hypertension: on carvedilol DVT: SCDs Charges/Coding Visit Charges Inpatient E&M: 66762 Subs Hosp L2
[2022-07-31] MEDS: Acetaminophen 325 MG Tablet 650 MG PO (20:20)
[2022-08-01] VITALS (7 sets, daily range): BP systolic 115–139; BP diastolic 53–75; PULSE 62–73; RESP 14–16; TEMP 36.4–37.2; O2SAT 94–95
[2022-08-01] MEDS: Levothyroxine 75 MCG Tablet PO (06:40)
[2022-08-01] MEDS: Gabapentin 300 MG Capsule PO ×3 (06:40→21:36)
[2022-08-01 07:03] LABS: Absolute Lymphocyte Count 0.52 X10^3/uL (0.83-4.51); Basophil# 0.01 X10^3/uL; Basophil% 0.3 % (0-1); Eosinophil# 0.44 X10^3/uL; Eosinophils% 12.7 % (0-5); Hematocrit 33.9 % (37-47); Hemoglobin 11.2 g/dL (12.0-15.0); Lymphocyte # 0.52 X10^3/ul (0.83-4.51); Mean Corpuscular Hgb 31.4 pg (27.0-32.0); Monocyte# 0.44 X10^3/uL; Monocyte% 12.7 % (0-10); NRBC Flagged by Analyzer 0 % (0-5); Neutrophil # 2.04 X10^3/uL (2.7-7.7); POSITIVE COUNT YES; POSITIVE DIFFERENTIAL YES; Platelet Count 90 K/mm3 (150-450); RBC Distribution Width SD 48.7 fl (35.1-43.9); Red Blood Count 3.57 M/mm3 (4.2-5.4); White Blood Count 3.5 K/mm3 (4.4-11.0)
[2022-08-01 07:15] LABS: Differential Indicated SCAN CRITERIA MET
[2022-08-01 07:49] LABS: Anion Gap 5 (5-15); BUN 22 mg/dL (7-18); BUN/Creat Ratio 25.1 RATIO (10-20); Calcium,Total 8.6 mg/dL (8.5-10.1); Chloride 107 mmol/L (98-107); Creatinine, Serum 0.88 mg/dL (0.55-1.02); EST Glomerular Filtration Rate 66 mL/min (>60); Est Glom Filt Rate - Afr Amer 80 mL/min (>60); Estimated Creatinine Clearance 41.67 ml/min; Glucose 99 mg/dL (74-106); Potassium 4.3 mmol/L (3.5-5.1); Sodium Level 141 mmol/L (136-145)
[2022-08-01] MEDS: Potassium Chloride Oral Tablet 10 MEQ PO ×2 (08:09→17:04)
[2022-08-01] MEDS: Multivitamins,Therapeutic Tablet 1 TABLET PO (08:09)
[2022-08-01] MEDS: Famotidine 20 MG Tablet PO (08:09)
[2022-08-01] MEDS: Carvedilol 12.5 MG Tablet PO ×2 (08:10→21:36)
--- NOTE | 2022-08-01 09:44 | PN.SURG_ITS ---
Subjective Subjective Patient is tolerating clear liquids, is having burning with urination however patient states she does get yeast infections sometimes with antibiotics. Objective Data Objective Data Vital Signs: Vital Signs Temp Pulse Resp BP Pulse Ox O2 Del Method O2 Flow Rate 98.3 F 70 14 136/62 H 95 Room Air 1.5 08/01/22 08:48 08/01/22 08:48 08/01/22 08:48 08/01/22 08:48 08/01/22 08:48 08/01/22 08:48 08/01/22 03:00 Oxygen Flow Rate (L/min) [5] 2 Oxygen Flow Rate (L/min) [4] 2 Oxygen Flow Rate (L/min) [3] 2 Oxygen Flow Rate (L/min) [2] 2 Oxygen Flow Rate (L/min) 1.5 Oxygen Delivery Method [5] Room Air Oxygen Delivery Method [4] Nasal Cannula Oxygen Delivery Method [3] Nasal Cannula Oxygen Delivery Method [2] Nasal Cannula Oxygen Delivery Method [1 ( Room Air Initial Baseline)] Oxygen Delivery Method Room Air Weight: 212 lb 11.937 oz Body Mass Index (BMI) 38.9 Intake & Output: Intake and Output for Last 24 Hours 07/30/22 07/31/22 08/01/22 23:59 23:59 23:59 Intake Total 189.25 / 189.25 2150 / 2150 50 / 50 Output Total 90 / 160 875 / 1005 230 / 230 Balance 99.25 / 29.25 1275 / 1145 -180 / -180 Lab / Micro Data Result Diagrams: 08/01/22 06:35 08/01/22 06:35 Labs: Laboratory Results - last 24 hr 07/31/22 06:10: Sodium 139, Potassium 4.3, Chloride 105, Carbon Dioxide 29.0, Anion Gap 5, BUN 17, Creatinine 1.48 H, Estim Creat Clear Calc 24.78, Est GFR (MDRD) Af Amer 44 L, Est GFR (MDRD) Non-Af 36 L, BUN/Creatinine Ratio 11.5, Glucose 124 H, Calcium 8.6, Total Bilirubin 0.60, AST 14 L, ALT 9 L, Alkaline Phosphatase 63, Total Protein 5.6 L, Albumin 2.6 L, Globulin 3.0, Albumin/Globulin Ratio 0.9 08/01/22 06:35: WBC 3.5 L, RBC 3.57 L, Hgb 11.2 L, Hct 33.9 L, MCV 95.0, MCH 31.4, MCHC 33.0, RDW Std Deviation 48.7 H, RDW Coeff of [place] 14.0, Plt Count 90 L , MPV 10.0, Immature Gran % (Auto) 0.300, Neut % (Auto) 59.0, Lymph % (Auto) 15.0 L, [place] % (Auto) 12.7 H, Eos % (Auto) 12.7 H, Baso % (Auto) 0.3, Absolute Neuts (auto) 2.0, Absolute Lymphs (auto) 0.52 L, Nucleated RBC % 0, Diff Path Review January08/01/22 06:35: Sodium 141, Potassium 4.3, Chloride 107, Carbon Dioxide 29.0, Anion Gap 5, BUN 22 H, Creatinine 0.88, Estim Creat Clear Calc 41.67, Est GFR (MDRD) Af Amer 80, Est GFR (MDRD) Non-Af 66, BUN/Creatinine Ratio 25.1 H, Glucose 99, Calcium 8.6 Micro: Microbiology 07/30/22 Unknown Aspirate - Abdominal Gram Stain - Final 07/30/22 Unknown Aspirate - Abdominal Wound Culture - Final Klebsiella pneumoniae sp pneum Physical Exam Const alert, oriented x3 and no apparent distress Resp normal respiratory effort Cardio regular rate GI soft to palpation; Negative for non-distended GI Narrative: Tender in the right upper quadrant epigastric, RUSLAN in place. RUSLAN serosanguineous--minimal in RUSLAN Palpation: Negative for guarding Psych mental status grossly normal Assessment & Plan Assessment/Plan (1) Acute cholecystitis: (2) Non Hodgkin's lymphoma: (3) Anticoagulant long-term use: PLAN: Plan Okay for clears until night midnight for OR Friday at 7:30 AM. Okay for Lovenox per primary. Diflucan p.o. x1 for possible yeast infection due to antibiotics IV Zosyn due to acute cholecystitis. Kaylen Gonzalez M.D. Pager: [phone] [facility] [address] [place] [address], [facility], [address] [place] [address] Office: [phone] Charges/Coding Visit Charges Inpatient E&M: 68386 Subs Hosp L2
--- NOTE | 2022-08-01 09:54 | PN.HOSP_ITS ---
Subjective Subjective Doing well, no issues overnight. She is having some burning with urination but she does have a pure wick in and she is currently on Zosyn Objective Data Objective Data Vital Signs: Vital Signs Temp Pulse Resp BP Pulse Ox O2 Del Method O2 Flow Rate 98.3 F 70 14 136/62 H 95 Room Air 1.5 08/01/22 08:48 08/01/22 08:48 08/01/22 08:48 08/01/22 08:48 08/01/22 08:48 08/01/22 08:48 08/01/22 03:00 Oxygen Flow Rate (L/min) [5] 2 Oxygen Flow Rate (L/min) [4] 2 Oxygen Flow Rate (L/min) [3] 2 Oxygen Flow Rate (L/min) [2] 2 Oxygen Flow Rate (L/min) 1.5 Oxygen Delivery Method [5] Room Air Oxygen Delivery Method [4] Nasal Cannula Oxygen Delivery Method [3] Nasal Cannula Oxygen Delivery Method [2] Nasal Cannula Oxygen Delivery Method [1 ( Room Air Initial Baseline)] Oxygen Delivery Method Room Air Weight: 212 lb 11.937 oz Body Mass Index (BMI) 38.9 Intake & Output: Intake and Output for Last 24 Hours 07/31/22 08/01/22 08/02/22 03:59 03:59 03:59 Intake Total 1239.25 / 1239.25 1150 / 1150 Output Total 160 / 160 935 / 935 100 / 100 Balance 1079.25 / 1079.25 215 / 215 -100 / -100 Lab / Micro Data Result Diagrams: 08/01/22 06:35 08/01/22 06:35 Labs: Laboratory Results - last 24 hr 07/31/22 06:10: Sodium 139, Potassium 4.3, Chloride 105, Carbon Dioxide 29.0, Anion Gap 5, BUN 17, Creatinine 1.48 H, Estim Creat Clear Calc 24.78, Est GFR (MDRD) Af Amer 44 L, Est GFR (MDRD) Non-Af 36 L, BUN/Creatinine Ratio 11.5, Glucose 124 H, Calcium 8.6, Total Bilirubin 0.60, AST 14 L, ALT 9 L, Alkaline P hosphatase 63, Total Protein 5.6 L, Albumin 2.6 L, Globulin 3.0, Albumin/Globulin Ratio 0.9 08/01/22 06:35: WBC 3.5 L, RBC 3.57 L, Hgb 11.2 L, Hct 33.9 L, MCV 95.0, MCH 31.4, MCHC 33.0, RDW Std Deviation 48.7 H, RDW Coeff of [place] 14.0, Plt Count 90 L , MPV 10.0, Immature Gran % (Auto) 0.300, Neut % (Auto) 59.0, Lymph % (Auto) 15.0 L, [place] % (Auto) 12.7 H, Eos % (Auto) 12.7 H, Baso % (Auto) 0.3, Absolute Neuts (auto) 2.0, Absolute Lymphs (auto) 0.52 L, Nucleated RBC % 0, Diff Path Review January08/01/22 06:35: Sodium 141, Potassium 4.3, Chloride 107, Carbon Dioxide 29.0, A nion Gap 5, BUN 22 H, Creatinine 0.88, Estim Creat Clear Calc 41.67, Est GFR (MDRD) Af Amer 80, Est GFR (MDRD) Non-Af 66, BUN/Creatinine Ratio 25.1 H, Glu cose 99, Calcium 8.6 Micro: Microbiology 07/30/22 Unknown Aspirate - Abdominal Gram Stain - Final 07/30/22 Unknown Aspirate - Abdominal Wound Culture - Final Klebsiella pneumoniae sp pneum Physical Exam Narrative General: Alert, Oriented x3, Cooperative, No apparent distress HEENT: Atraumatic, PERRLA, EOMI, Normocephalic Oral: Moist Mucosa Neck: Supple, No JVD Lungs: Clear to auscultation, Normal air movement, No rhonchi, No wheeze, No rales Cardiovascular: Regular rate, Regular Rhythm, Normal S1, Normal S2, No murmurs Abdomen: Soft, tender around the cholecystostomy site, Non-Distended, No Hepato-splenomegaly Extremities: No edema, Capillary Refill Less than 3 Seconds Skin: No rashes, No breakdown Musculoskeletal: No Tenderness to Palpation of Joints or Extremities Neurological: Cranial nerves II-XII grossly intact, Motor Exam 5/5 strength throughout, Sensory exam intact to light touch and pain Psych/Mental Status: Normal Affect, Appropriate Assessment & Plan Assessment/Plan (1) Acute cholecystitis: (2) MARY (acute kidney injury): PLAN: Plan 1. Acute cholecystitis/MARY * CT abdomen and pelvis showed multiple gallstones and gallbladder wall thickening as well as pericholecystic fluid. . * gallbladder USG showed similar findings with gallbladder wall thickening and pericholecystic fluid. * general surgery consulted plan for OR on Friday * Renal function has returned to baseline with adequate p.o. intake * Continue with clears, she will be n.p.o. night * IV morphine prn for pain. * IV Zosyn 2. Non hodgkin's lymphoma * On chemotherapy. Follow-up with oncology on outpatient basis. 3. History of DVT: on eliquis. will hold for surgery 4. Hypothyroidism: on synthroid 5. Hypertension: on carvedilol DVT: Lovenox Charges/Coding Visit Charges Inpatient E&M: 06774 Subs Hosp L2
[2022-08-01] MEDS: oxyCODONE 5 MG Tablet PO (10:52)
[2022-08-01] MEDS: Fluconazole 100 MG Tablet 200 MG PO (12:13)
[2022-08-01 15:42] LABS: Pathologist Review Reviewed
--- NOTE | 2022-08-01 16:10 | CASEMGMT ---
FRANCESCO ELISE NOTE: PT/OT notes reviewed. Pt ambulated 34 ft w/use of WW and CGA. Additional therapy recommended. FRANCESCO ELISE to room to talk w/pt. She states she feels she has been getting up in room fairly well and does not think she will need any therapy @ discharge. She declines both OP therapy and declines HHC. She was made aware, if she changes her mind while @ [facility], to ask to speak w/CM, or if she decides once she returns home, to discuss this w/her PCP. She voices understanding. She denies having other discharge planning needs/concerns at this time. Fidel COSTELLO RN CM
[2022-08-01] MEDS: Acetaminophen 325 MG Tablet 650 MG PO (21:36)
[2022-08-02] VITALS (24 sets, daily range): BP systolic 102–187; BP diastolic 51–81; PULSE 50–76; RESP 16–18; TEMP 2.8–37.3; O2SAT 16–97; BMI 38.9
--- NOTE | 2022-08-02 | GALL_PTH ---
PATIENT: AYAZ HERNANDEZ LOC: MS3 U#:[id number] AGE/SX: 76/F ROOM: MA315 RE07/30/[address]: Dr. Kenyon Joiner MD : 1945 BED: 1 DIS: 08/04/2022 SPEC #: [id number] RECD: 08/02/22 12:01 STATUS: JEFFY VICENTE #: [id number] PATRICIO: 08/02/22 00:[address]: Kaylen Gonzalez DEPT: SURGICAL PATHOLOGY RECD BY: Davis Grullon ENTERED: 08/02/22 12:01 SP TYPE: GALLBLADDE OTHR DR: MD Dr. Vikki Henderson MD Dr. Nicholas F Kotsonis, MD Dr. Tamera Robotham, MD Dr. William Lago, MD Tissues: Gallbladder, NOS Procedures: Surgery Specimen Level III Comments: @ Ordering doctor for SUIII edited from to @ by MAX at 08/02/22 1301 @ Submitting doctor edited from to @ by BRANDONOD at 08/02/22 1301 HEADER OPERATION: Laparoscopic subtotal cholecystectomy PRE-OP DIAGNOSIS: Acute cholecystitis TISSUE SUBMITTED: Subtotal gallbladder MICROSCOPIC DIAGNOSIS Gallbladder, subtotal cholecystectomy: Acute and chronic cholecystitis and cholelithiasis. Reactive epithelial changes. /SJ 08/05/22 MICROSCOPIC DESCRIPTION Slides are reviewed. GROSS DESCRIPTION Received is one container labeled with the patient's name and designated subtotal gallbladder. The specimen consists of a gallbladder in three pieces. The largest portion of gallbladder with fundus measures 6 cm in length and up to 2.5 cm in diameter. Two detached pieces of gallbladder wall measures in aggregate 5.5 x 3.5 x 1.5 cm. The external surface is pink-lyons, smooth and glistening for the most part. Focally it is granular, hemorrhagic and contains cautery artifact. Also present in the container are multiple multifaceted brownish-black stone measuring in aggregate 6.5 x 5 x 2.5 cm and 1.5 to 2 cm in greatest dimension. A portion of cystic duct is not identified. The gallbladder wall measures up to 1 cm in thickness. Concrete Pipe Machine Operator sections are submitted in two cassettes. / GONSALO:eliseo 08/02/2022 TC:2 CPT: 73602
[2022-08-02 05:38] LABS: Absolute Lymphocyte Count 0.55 X10^3/uL (0.83-4.51); Absolute Neutrophil Count 1.2 X10^3/uL (2.0-7.7); Basophil# 0.02 X10^3/uL; Basophil% 0.7 % (0-1); Eosinophil# 0.44 X10^3/uL; Eosinophils% 16.5 % (0-5); Hematocrit 33.6 % (37-47); Lymphocyte # 0.55 X10^3/ul (0.83-4.51); Lymphocyte % 20.6 % (19-41); Mean Corp Hgb Conc 32.7 g/dL (32-36); Mean Corpuscular Hgb 31.1 pg (27.0-32.0); Mean Corpuscular Volume 94.9 fL (81-99); Mean Platelet Vol. 9.8 fl (6.2-12.0); Monocyte# 0.38 X10^3/uL; Monocyte% 14.2 % (0-10); NRBC Flagged by Analyzer 0 % (0-5); Neutrophil # 1.24 X10^3/uL (2.7-7.7); Neutrophil % 46.5 % (47-70); POSITIVE COUNT YES; POSITIVE DIFFERENTIAL YES; Platelet Count 96 K/mm3 (150-450); RBC Distribution Width CV 13.9 % (11.6-14.6); RBC Distribution Width SD 48.4 fl (35.1-43.9); Red Blood Count 3.54 M/mm3 (4.2-5.4); White Blood Count 2.7 K/mm3 (4.4-11.0)
[2022-08-02] MEDS: Lactated Ringers 1,000 ML 15 ML IV ×2 (05:45→08:00)
[2022-08-02 05:47] LABS: Differential Indicated SCAN CRITERIA MET
[2022-08-02 06:01] LABS: Anion Gap 6 (5-15); BUN 14 mg/dL (7-18); BUN/Creat Ratio 20.6 RATIO (10-20); Calcium,Total 8.8 mg/dL (8.5-10.1); Chloride 108 mmol/L (98-107); Creatinine, Serum 0.68 mg/dL (0.55-1.02); EST Glomerular Filtration Rate 89 mL/min (>60); Est Glom Filt Rate - Afr Amer 108 mL/min (>60); Estimated Creatinine Clearance 36.67 ml/min; Glucose 90 mg/dL (74-106); Potassium 3.9 mmol/L (3.5-5.1); Sodium Level 142 mmol/L (136-145)
[2022-08-02 06:08] LABS: Differential Comment SCANNED; Platelet Estimate SLT DEC (ADEQ)
[2022-08-02] MEDS: Bupivacaine 0.25% 30 ML Vial (09:21)
--- NOTE | 2022-08-02 09:25 | PCM.OPRPT ---
Report of Operation Date of Procedure: 08/02/22 Pre-Operative Diagnosis: Acute cholecystitis, status post cholecystostomy, long-term anticoagulation Post-Operative Diagnosis: Same Surgery/Procedure Performed:: Laparoscopic subtotal cholecystectomy Surgeon: Kaylen Gonzalez medical sales consultant: Evans Reinoso Type of Anesthesia: General/Supplemental Anesthesiologist: Simeon Shane Special Medications: Zosyn 3.375 g IV every 8 on the floor for acute cholecystitis Specimen's removed: Gallbladder wall and stones Drains: 15 [place]cu[place]orean RUSLAN right upper quadrant Estimated Blood Loss (mL): 30 cc Description of Procedure: Indications: this is a 76 year-old female who developed abdominal pain/nausea/vomiting and on workup was found to have acute cholecystitis, cholelithiasis, with a normal common bile duct. Due to patient's Eliquis cholecystostomy tube was placed for symptom relief until we are able to do surgery?when RUSLAN was placed in IR-- 70 cc of purulent material was drained. Laparoscopic cholecystectomy was elected. Description procedure: The patient was placed on operating table in supine position. A timeout was completed verifying correct patient, procedure, site, position and special equipment prior to beginning procedure. General Anesthesia was induced. The abdomen was prepped and draped in usual sterile fashion. An incision was made in the natural skin line above the umbilicus. The fascia was elevated and incised. The peritoneum was elevated and incised. Entry into the peritoneum was confirmed visually and no bowel was noted in the vicinity of the incision. [place] trocar was placed. The abdomen was insufflated with carbon dioxide to a pressure of 12-15 mmHg. Patient tolerated insufflation well. The laparoscope was then inserted and abdomen inspected. No injuries from initial trocar placement were noted. Additional trochars were then inserted in the following locations 5 mm trocar in the epigastrium and 2 more 5 mm trochars along the right costal margin. The abdomen was inspected no abnormalities were found. The table is placed in reverse Trendelenburg position with the right side up. Previous cholecystostomy tube was removed from the gallbladder. The gallbladder was noted to be contracted very thick-walled. The dome of the gallbladder was grasped with atraumatic grasper passed through the lateral port and retracted over the dome of the liver. Very dense adhesions at the infundibulum/neck of the gallbladder this was converted to a subtotal cholecystectomy. Harmonic was used to divide the wall of the gallbladder is easily visualized. The stones and wall were placed in Endo Catch bag and removed from the umbilical incision. The Erbe was used to coagulate the mucosa of the gallbladder. No obvious bile was seen at time of surgery from cystic duct opening. Hemostasis was checked and the gallbladder and contained stones were removed using the endoscopic retrieval bag through the umbilical port. The gallbladder wall and stones were passed off table as specimen. The gallbladder fossa was irrigated with saline and hemostasis obtained. There is no evidence of bleeding from the gallbladder fossa/infundibulum wall of the gallbladder. 15 Ecuadorean round RUSLAN was placed in the gallbladder fossa exiting through the lateral trocar site. RUSLAN was secured with 3-0 nylon suture. Secondary trochars removed under direct vision. No bleeding was noted the trocar sites. The laparoscope was withdrawn and umbilical trocar removed. The abdomen was allowed to collapse. The fascia of the 12 mm trocar was closed with two [id number] 0 Vicryl suture. The skin was closed with sutures of 4-0 Monocryl and Steri-Strips. The patient was extubated. The patient tolerated procedure well and was taken to the postanesthesia care unit in stable condition. Complications none
--- NOTE | 2022-08-02 09:31 | PN.HOSP_ITS ---
Subjective Subjective Well, no issues overnight. Currently n.p.o. in anticipation of surgery today. Objective Data Objective Data Vital Signs: Vital Signs Temp Pulse Resp BP Pulse Ox O2 Del Method O2 Flow Rate 97.7 F L 50 L 16 156/67 H 97 Room Air 1.5 08/02/22 05:25 08/02/22 05:25 08/02/22 05:25 08/02/22 05:25 08/02/22 07:02 08/02/22 07:02 08/02/22 05:23 Oxygen Flow Rate (L/min) [5] 2 Oxygen Flow Rate (L/min) [4] 2 Oxygen Flow Rate (L/min) [3] 2 Oxygen Flow Rate (L/min) [2] 2 Oxygen Flow Rate (L/min) 1.5 Oxygen Delivery Method [5] Room Air Oxygen Delivery Method [4] Nasal Cannula Oxygen Delivery Method [3] Nasal Cannula Oxygen Delivery Method [2] Nasal Cannula Oxygen Delivery Method [1 ( Room Air Initial Baseline)] Oxygen Delivery Method Room Air Weight: 212 lb 11.937 oz Body Mass Index (BMI) 38.9 Intake & Output: Intake and Output for Last 24 Hours 08/01/22 08/02/22 08/03/22 03:59 03:59 03:59 Intake Total 1150 / 1150 450 / 450 0.25 / 0.25 Output Total 935 / 935 1560 / 1560 400 / 400 Balance 215 / 215 -1110 / -1110 -399.75 / -399.75 Lab / Micro Data Result Diagrams: 08/02/22 05:02 08/02/22 05:02 Labs: Laboratory Results - last 24 hr 08/01/22 06:35: Diff Path Review Reviewed 08/02/22 05:02: WBC 2.7 L, RBC 3.54 L, Hgb 11.0 L, Hct 33.6 L, MCV 94.9, MCH 31.1, MCHC 32.7, RDW Std Deviation 48.4 H, RDW Coeff of [place] 13.9, Plt Count 96 L , MPV 9.8, Immature Gran % (Auto) 1.500 H, Neut % (Auto) 46.5 L, Lymph % (Auto) 20.6, [place] % (Auto) 14.2 H, Eos % (Auto) 16.5 H, Baso % (Auto) 0.7, Absolute Neuts (auto) 1.2 L, Absolute Lymphs (auto) 0.55 L, Nucleated RBC % 0, Differential Comment SCANNED, Diff Path Review January foll, Platelet Estimate SLT 08/02/22 05:02: Sodium 142, Potassium 3.9, Chloride 108 H, Carbon Dioxide 28.0, Anion Gap 6, BUN 14, Creatinine 0.68, Estim Creat Clear Calc 36.67, Est GFR (MDRD) Af Amer 108, Est GFR (MDRD) Non-Af 89, BUN/Creatinine Ratio 20.6 H, Glucose 90, Calcium 8.8 Micro: Microbiology 07/30/22 Unknown Aspirate - Abdominal Gram Stain - Final 07/30/22 Unknown Aspirate - Abdominal Wound Culture - Final Klebsiella pneumoniae sp pneum 07/30/22 Unknown Aspirate - Abdominal Anaerobic Culture - Final No anaerobic bacteria isolated. Physical Exam Narrative General: Alert, Oriented x3, Cooperative, No apparent distress HEENT: Atraumatic, PERRLA, EOMI, Normocephalic Oral: Moist Mucosa Neck: Supple, No JVD Lungs: Clear to auscultation, Normal air movement, No rhonchi, No wheeze, No rales Cardiovascular: Regular rate, Regular Rhythm, Normal S1, Normal S2, No murmurs Abdomen: Soft, tender around the cholecystostomy site, Non-Distended, No Hepato- splenomegaly Extremities: No edema, Capillary Refill Less than 3 Seconds Skin: No rashes, No breakdown Musculoskeletal: No Tenderness to Palpation of Joints or Extremities Neurological: Cranial nerves II-XII grossly intact, Motor Exam 5/5 strength throughout, Sensory exam intact to light touch and pain Psych/Mental Status: Normal Affect, Appropriate Assessment & Plan Assessment/Plan (1) Acute cholecystitis: (2) MARY (acute kidney injury): PLAN: Plan 1. Acute cholecystitis/MARY * CT abdomen and pelvis showed multiple gallstones and gallbladder wall thickening as well as pericholecystic fluid. . * gallbladder USG showed similar findings with gallbladder wall thickening and pericholecystic fluid. * general surgery consulted plan for the OR today * Renal function has returned to baseline with adequate p.o. intake * Currently n.p.o., can resume diet after surgery * IV morphine prn for pain. * IV Zosyn 2. Non hodgkin's lymphoma * On chemotherapy. Follow-up with oncology on outpatient basis. 3. History of DVT: on eliquis. will hold for surgery 4. Hypothyroidism: on synthroid 5. Hypertension: on carvedilol DVT: Lovenox Charges/Coding Visit Charges Inpatient E&M: 65784 Subs Hosp L2
[2022-08-02 09:39] LABS: Pathologist Review Reviewed
[2022-08-02] MEDS: Multivitamins,Therapeutic Tablet 1 TABLET PO (11:54)
[2022-08-02] MEDS: Potassium Chloride Oral Tablet 10 MEQ PO ×2 (11:54→16:32)
[2022-08-02] MEDS: Famotidine 20 MG Tablet PO (11:54)
[2022-08-02] MEDS: Carvedilol 12.5 MG Tablet PO ×2 (11:54→21:06)
[2022-08-02] MEDS: levoFLOXacin IV 750 MG/150 ML BAG 100 MG IV (12:08)
[2022-08-02] MEDS: Morphine 4 MG/ML Syringe IV ×2 (13:30→16:32)
[2022-08-02] MEDS: 0.9% Saline Lock 10 ML Syringe IV ×2 (13:31→16:33)
[2022-08-02] MEDS: Gabapentin 300 MG Capsule PO ×2 (13:31→21:09)
[2022-08-02] MEDS: Bisacodyl 5 MG Tablet PO (14:29)
--- NOTE | 2022-08-02 15:38 | NURSING ---
in to assess patient as requesting pain medication. discussed po intake pt states has taken jello refuses crackers or anything more states has dinner ordered, discussed trying oxyir at this time. pt verbalized she wishes to wait for morphine until she trys dinner. no change in abd assessment noted.
[2022-08-02] MEDS: oxyCODONE 5 MG Tablet PO (17:27)
[2022-08-02] MEDS: Docusate Sodium 100 MG Capsule PO (21:06)
[2022-08-02] MEDS: Acetaminophen 325 MG Tablet 650 MG PO (22:51)
[2022-08-03] VITALS (7 sets, daily range): BP systolic 130–167; BP diastolic 58–76; PULSE 62–70; RESP 14–18; TEMP 36.6–37.2; O2SAT 18–96
[2022-08-03] MEDS: oxyCODONE 5 MG Tablet PO (00:10)
[2022-08-03] MEDS: hydrALAZINE 20 MG/ML Vial 10 MG IV (03:54)
[2022-08-03 06:44] LABS: Absolute Lymphocyte Count 0.57 X10^3/uL (0.83-4.51); Absolute Neutrophil Count 4.5 X10^3/uL (2.0-7.7); Basophil# 0.01 X10^3/uL; Basophil% 0.2 % (0-1); Hematocrit 33.1 % (37-47); Hemoglobin 11.2 g/dL (12.0-15.0); Lymphocyte # 0.57 X10^3/ul (0.83-4.51); Lymphocyte % 10.3 % (19-41); Mean Corp Hgb Conc 33.8 g/dL (32-36); Mean Corpuscular Hgb 31.9 pg (27.0-32.0); Mean Corpuscular Volume 94.3 fL (81-99); Monocyte# 0.49 X10^3/uL; Monocyte% 8.9 % (0-10); NRBC Flagged by Analyzer 0 % (0-5); Neutrophil # 4.45 X10^3/uL (2.7-7.7); Neutrophil % 80.4 % (47-70); POSITIVE DIFFERENTIAL YES; Platelet Count 120 K/mm3 (150-450); RBC Distribution Width CV 13.9 % (11.6-14.6); RBC Distribution Width SD 47.3 fl (35.1-43.9); Red Blood Count 3.51 M/mm3 (4.2-5.4); White Blood Count 5.5 K/mm3 (4.4-11.0)
[2022-08-03 06:46] LABS: Differential Indicated SCAN CRITERIA MET
[2022-08-03 07:07] LABS: Differential Comment SCANNED
[2022-08-03] MEDS: Levothyroxine 75 MCG Tablet PO (07:12)
[2022-08-03] MEDS: Gabapentin 300 MG Capsule PO ×3 (07:12→20:43)
[2022-08-03 07:14] LABS: Anion Gap 6 (5-15); BUN 11 mg/dL (7-18); BUN/Creat Ratio 19.4 RATIO (10-20); Calcium,Total 9.2 mg/dL (8.5-10.1); Chloride 107 mmol/L (98-107); Creatinine, Serum 0.57 mg/dL (0.55-1.02); EST Glomerular Filtration Rate 109 mL/min (>60); Est Glom Filt Rate - Afr Amer 132 mL/min (>60); Estimated Creatinine Clearance 36.67 ml/min; Glucose 139 mg/dL (74-106); Sodium Level 141 mmol/L (136-145)
[2022-08-03] MEDS: Multivitamins,Therapeutic Tablet 1 TABLET PO (08:15)
[2022-08-03] MEDS: Potassium Chloride Oral Tablet 10 MEQ PO ×2 (08:15→16:52)
--- NOTE | 2022-08-03 09:54 | PN.HOSP_ITS ---
Subjective Subjective Doing well, no issues over night. Denies any significant pain, she is passing gas and is tolerating breakfast so far. Objective Data Objective Data Vital Signs: Vital Signs Temp Pulse Resp BP Pulse Ox O2 Del Method O2 Flow Rate 98.0 F 70 14 130/62 H 94 Room Air 1.5 08/03/22 07:21 08/03/22 07:21 08/03/22 07:21 08/03/22 07:21 08/03/22 07:21 08/03/22 07:21 08/02/22 21:12 Oxygen Flow Rate (L/min) [5] 2 Oxygen Flow Rate (L/min) [4] 2 Oxygen Flow Rate (L/min) [3] 2 Oxygen Flow Rate (L/min) [2] 2 Oxygen Flow Rate (L/min) 1.5 Oxygen Delivery Method [5] Room Air Oxygen Delivery Method [4] Nasal Cannula Oxygen Delivery Method [3] Nasal Cannula Oxygen Delivery Method [2] Nasal Cannula Oxygen Delivery Method [1 ( Room Air Initial Baseline)] Oxygen Delivery Method Room Air Weight: 212 lb 11.937 oz Body Mass Index (BMI) 38.9 Intake & Output: Intake and Output for Last 24 Hours 08/02/22 08/03/22 08/04/22 03:59 03:59 03:59 Intake Total 450 / 450 1927.50 / 1927.50 450 / 450 Output Total 1560 / 1560 1010 / 1010 465 / 465 Balance -1110 / -1110 917.50 / 917.50 -15 / -15 Lab / Micro Data Result Diagrams: 08/03/22 06:20 08/03/22 06:20 Labs: Laboratory Results - last 24 hr 08/03/22 06:20: WBC 5.5, RBC 3.51 L, Hgb 11.2 L, Hct 33.1 L, MCV 94.3, MCH 31.9, MCHC 33.8, RDW Std Deviation 47.3 H, RDW Coeff of [place] 13.9, Plt Count 120 L, MPV 10.0, Immature Gran % (Auto) 0.200, Neut % (Auto) 80.4 H, Lymph % (Auto) 10.3 L, [place] % (Auto) 8.9, Eos % (Auto) 0.0, Baso % (Auto) 0.2, Absolute Neuts (auto) 4.5, Absolute Lymphs (auto) 0.57 L, Nucleated RBC % 0, Differential Comment SCANNED 08/03/22 06:20: Sodium 141, Potassium 4.0, Chloride 107, Carbon Dioxide 28.0, Anion Gap 6, BUN 11, Creatinine 0.57, Estim Creat Clear Calc 36.67, Est GFR (MDRD) Af Amer 132, Est GFR (MDRD) Non-Af 109, BUN/Creatinine Ratio 19.4, Glucos e 139 H, Calcium 9.2 Micro: Microbiology 07/30/22 Unknown Aspirate - Abdominal Gram Stain - Final 07/30/22 Unknown Aspirate - Abdominal Wound Culture - Final Klebsiella pneumoniae sp pneum 07/30/22 Unknown Aspirate - Abdominal Anaerobic Culture - Final No anaerobic bacteria isolated. Physical Exam Narrative General: Alert, Oriented x3, Cooperative, No apparent distress HEENT: Atraumatic, PERRLA, EOMI, Normocephalic Oral: Moist Mucosa Neck: Supple, No JVD Lungs: Clear to auscultation, Normal air movement, No rhonchi, No wheeze, No rales Cardiovascular: Regular rate, Regular Rhythm, Normal S1, Normal S2, No murmurs Abdomen: Soft, not tender, Non-Distended, No Hepato-splenomegaly, RUSLAN with serosanguineous fluid Extremities: No edema, Capillary Refill Less than 3 Seconds Skin: No rashes, No breakdown Musculoskeletal: No Tenderness to Palpation of Joints or Extremities Neurological: Cranial nerves II-XII grossly intact, Motor Exam 5/5 strength throughout, Sensory exam intact to light touch and pain Psych/Mental Status: Normal Affect, Appropriate Assessment & Plan Assessment/Plan (1) Acute cholecystitis: (2) MARY (acute kidney injury): PLAN: Plan 1. Acute cholecystitis status post cholecystectomy 08/02/2022/MARY * CT abdomen and pelvis showed multiple gallstones and gallbladder wall thickening as well as pericholecystic fluid. . * gallbladder USG showed similar findings with gallbladder wall thickening and pericholecystic fluid. * Renal function has returned to baseline with adequate p.o. intake * IV morphine prn for pain. * IV Zosyn 2. Non hodgkin's lymphoma * On chemotherapy. Follow-up with oncology on outpatient basis. 3. History of DVT: on eliquis. will hold for surgery 4. Hypothyroidism: on synthroid 5. Hypertension: on carvedilol DVT: Lovenox Charges/Coding Visit Charges Inpatient E&M: 83837 Subs Hosp L2
--- NOTE | 2022-08-03 09:59 | PN.SURG_ITS ---
Subjective Subjective Patient is doing well status lap kevin. Patient tolerated clears plan for regular diet. Patient's RUSLAN is serosanguineous Objective Data Objective Data Vital Signs: Vital Signs Temp Pulse Resp BP Pulse Ox O2 Del Method O2 Flow Rate 98.0 F 70 14 130/62 H 94 Room Air 1.5 08/03/22 07:21 08/03/22 07:21 08/03/22 07:21 08/03/22 07:21 08/03/22 07:21 08/03/22 07:21 08/02/22 21:12 Oxygen Flow Rate (L/min) [5] 2 Oxygen Flow Rate (L/min) [4] 2 Oxygen Flow Rate (L/min) [3] 2 Oxygen Flow Rate (L/min) [2] 2 Oxygen Flow Rate (L/min) 1.5 Oxygen Delivery Method [5] Room Air Oxygen Delivery Method [4] Nasal Cannula Oxygen Delivery Method [3] Nasal Cannula Oxygen Delivery Method [2] Nasal Cannula Oxygen Delivery Method [1 ( Room Air Initial Baseline)] Oxygen Delivery Method Room Air Weight: 212 lb 11.937 oz Body Mass Index (BMI) 38.9 Intake & Output: Intake and Output for Last 24 Hours 08/01/22 08/02/22 08/03/22 23:59 23:59 23:59 Intake Total 150 / 150 1850.00 / 1850.00 877.5 / 877.5 Output Total 1490 / 1490 910 / 910 765 / 765 Balance -1340 / -1340 940.00 / 940.00 112.5 / 112.5 Lab / Micro Data Result Diagrams: 08/03/22 06:20 08/03/22 06:20 Labs: Laboratory Results - last 24 hr 08/03/22 06:20: WBC 5.5, RBC 3.51 L, Hgb 11.2 L, Hct 33.1 L, MCV 94.3, MCH 31.9, MCHC 33.8, RDW Std Deviation 47.3 H, RDW Coeff of [place] 13.9, Plt Count 120 L, MPV 10.0, Immature Gran % (Auto) 0.200, Neut % (Auto) 80.4 H, Lymph % (Auto) 10.3 L, [place] % (Auto) 8.9, Eos % (Auto) 0.0, Baso % (Auto) 0.2, Absolute Neuts (auto) 4.5, Absolute Lymphs (auto) 0.57 L, Nucleated RBC % 0, Differential Comment SCANNED 08/03/22 06:20: Sodium 141, Potassium 4.0, Chloride 107, Carbon Dioxide 28.0, Anion Gap 6, BUN 11, Creatinine 0.57, Estim Creat Clear Calc 36.67, Est GFR (MDRD) Af Amer 132, Est GFR (MDRD) Non-Af 109, BUN/Creatinine Ratio 19.4, Glucose 139 H, Calcium 9.2 Micro: Microbiology 07/30/22 Unknown Aspirate - Abdominal Gram Stain - Final 07/30/22 Unknown Aspirate - Abdominal Wound Culture - Final Klebsiella pneumoniae sp pneum 07/30/22 Unknown Aspirate - Abdominal Anaerobic Culture - Final No anaerobic bacteria isolated. Physical Exam Resp normal respiratory effort Cardio regular rate GI GI Narrative: Abdomen: Soft, nondistended, tender near incision's dressed clean dry and intact, no peritoneal signs, RUSLAN serosanguineous Assessment & Plan Assessment/Plan (1) Acute cholecystitis: (2) Non Hodgkin's lymphoma: (3) Anticoagulant long-term use: (4) S/P laparoscopic cholecystectomy: PLAN: Plan Continue regular diet --we will continue to monitor RUSLAN while on the regular diet. If RUSLAN does turn bilious patient may need an ERCP. Okay to continue anticoagulation of Lovenox today. Continue out of bed to chair and ambulation Kaylen Gonzalez M.D. Pager: [phone] [facility] [address] [place] [address], Outpatient [place], [address] [place] [address] Office: [phone]
[2022-08-03] MEDS: Carvedilol 12.5 MG Tablet PO ×2 (10:08→20:42)
[2022-08-03] MEDS: Enoxaparin 40 MG/0.4 ML Syringe SC (10:08)
[2022-08-03] MEDS: Docusate Sodium 100 MG Capsule PO ×2 (10:08→20:42)
[2022-08-03] MEDS: Famotidine 20 MG Tablet PO (10:08)
[2022-08-04 04:30] VITALS: BP 177/78; PULSE 65; RESP 18; TEMP 36.6; O2SAT 95
[2022-08-04] MEDS: Gabapentin 300 MG Capsule PO ×2 (05:25→13:44)
[2022-08-04 05:26] VITALS: BP 177/78; PULSE 69
[2022-08-04] MEDS: Enoxaparin 40 MG/0.4 ML Syringe SC (05:26)
[2022-08-04] MEDS: 0.9% Saline Lock 10 ML Syringe IV ×2 (05:26→10:47)
[2022-08-04] MEDS: oxyCODONE 5 MG Tablet PO (05:26)
[2022-08-04] MEDS: hydrALAZINE 20 MG/ML Vial 10 MG IV (05:26)
[2022-08-04] MEDS: Levothyroxine 75 MCG Tablet PO (05:28)
[2022-08-04] MEDS: levoFLOXacin 500 MG Tablet PO (05:29)
[2022-08-04 07:22] LABS: Absolute Lymphocyte Count 0.57 X10^3/uL (0.83-4.51); Basophil# 0.01 X10^3/uL; Basophil% 0.3 % (0-1); Eosinophils% 6.2 % (0-5); Hematocrit 32.3 % (37-47); Hemoglobin 10.4 g/dL (12.0-15.0); Lymphocyte # 0.57 X10^3/ul (0.83-4.51); Lymphocyte % 17.6 % (19-41); Mean Corp Hgb Conc 32.2 g/dL (32-36); Mean Corpuscular Hgb 30.8 pg (27.0-32.0); Mean Corpuscular Volume 95.6 fL (81-99); Mean Platelet Vol. 9.8 fl (6.2-12.0); Monocyte% 12.4 % (0-10); NRBC Flagged by Analyzer 0 % (0-5); Neutrophil # 2.03 X10^3/uL (2.7-7.7); Neutrophil % 62.9 % (47-70); POSITIVE DIFFERENTIAL YES; Platelet Count 130 K/mm3 (150-450); RBC Distribution Width CV 14.1 % (11.6-14.6); RBC Distribution Width SD 49.6 fl (35.1-43.9); Red Blood Count 3.38 M/mm3 (4.2-5.4); White Blood Count 3.2 K/mm3 (4.4-11.0)
[2022-08-04 07:32] LABS: Differential Indicated SCAN CRITERIA MET
[2022-08-04 07:39] VITALS: BP 147/75; PULSE 70; RESP 18; TEMP 36.8; O2SAT 95
[2022-08-04] MEDS: Multivitamins,Therapeutic Tablet 1 TABLET PO (07:44)
[2022-08-04] MEDS: Potassium Chloride Oral Tablet 10 MEQ PO (07:44)
[2022-08-04 07:56] LABS: ALB/GLOB Ratio 0.8 RATIO (0.9-2.4); AST(SGOT) 17 U/L (15-37); Alanine Aminotransfer ALT/SGPT 10 U/L (13-56); Albumin, Serum 2.3 g/dL (3.2-5.0); Alkaline Phosphatase 49 U/L (45-117); Anion Gap 7 (5-15); BUN 15 mg/dL (7-18); BUN/Creat Ratio 25.9 RATIO (10-20); Calcium,Total 8.6 mg/dL (8.5-10.1); Chloride 110 mmol/L (98-107); Creatinine, Serum 0.58 mg/dL (0.55-1.02); EST Glomerular Filtration Rate 107 mL/min (>60); Est Glom Filt Rate - Afr Amer 129 mL/min (>60); Estimated Creatinine Clearance 36.67 ml/min; Globulin 2.9 g/dL (2.2-4.2); Glucose 111 mg/dL (74-106); Potassium 3.4 mmol/L (3.5-5.1); Protein, Total 5.2 g/dL (6.4-8.2); Sodium Level 143 mmol/L (136-145)
[2022-08-04 08:36] LABS: Platelet Estimate ADEQUATE (ADEQ); Red Cell Morphology NORM C+C NORMAL (NORM C&C)
--- NOTE | 2022-08-04 08:42 | PN.HOSP_ITS ---
Subjective Subjective Doing well well, no issues overnight. RUSLAN appears to be clear. She is having some right shoulder pain consistent with referred pain after insufflation for her cholecystectomy. Objective Data Objective Data Vital Signs: Vital Signs Temp Pulse Resp BP Pulse Ox O2 Del Method O2 Flow Rate 97.9 F 69 18 177/78 H 95 Room Air 1.5 08/04/22 04:30 08/04/22 05:26 08/04/22 04:30 08/04/22 05:26 08/04/22 04:30 08/04/22 04:30 08/02/22 21:12 Oxygen Flow Rate (L/min) [5] 2 Oxygen Flow Rate (L/min) [4] 2 Oxygen Flow Rate (L/min) [3] 2 Oxygen Flow Rate (L/min) [2] 2 Oxygen Flow Rate (L/min) 1.5 Oxygen Delivery Method [5] Room Air Oxygen Delivery Method [4] Nasal Cannula Oxygen Delivery Method [3] Nasal Cannula Oxygen Delivery Method [2] Nasal Cannula Oxygen Delivery Method [1 ( Room Air Initial Baseline)] Oxygen Delivery Method Room Air Weight: 212 lb 11.937 oz Body Mass Index (BMI) 38.9 Intake & Output: Intake and Output for Last 24 Hours 08/03/22 08/04/22 08/05/22 03:59 03:59 03:59 Intake Total 1927.50 / 1927.50 2250 / 2250 267.75 / 267.75 Output Total 1010 / 1010 1435 / 1435 255 / 255 Balance 917.50 / 917.50 815 / 815 12.75 / 12.75 Lab / Micro Data Result Diagrams: 08/04/22 06:57 08/04/22 06:57 Labs: Laboratory Results - last 24 hr 08/04/22 06:57: WBC 3.2 L, RBC 3.38 L, Hgb 10.4 L, Hct 32.3 L, MCV 95.6, MCH 30.8, MCHC 32.2, RDW Std Deviation 49.6 H, RDW Coeff of [place] 14.1, Plt Count 130 L, MPV 9.8, Immature Gran % (Auto) 0.600, Neut % (Auto) 62.9, Lymph % (Auto) 17.6 L, [place] % (Auto) 12.4 H, Eos % (Auto) 6.2 H, Baso % (Auto) 0.3, Absolute Neuts (auto) 2.0, Absolute Lymphs (auto) 0.57 L, Nucleated RBC % 0, Diff Path Review May foll, Platelet Estimate ADEQUATE, RBC Morphology NORM C+C 08/04/22 06:57: Sodium 143, Potassium 3.4 L, Chloride 110 H, Carbon Dioxide 26.0, Anion Gap 7, BUN 15, Creatinine 0.58, Estim Creat Clear Calc 36.67, Est GFR (MDRD) Af Amer 129, Est GFR (MDRD) Non-Af 107, BUN/Creatinine Ratio 25.9 H, Glucose 111 H, Calcium 8.6, Total Bilirubin 0.20, AST 17, ALT 10 L, Alkaline Phosphatase 49, Total Protein 5.2 L, Albumin 2.3 L, Globulin 2.9, Albumin/Globulin Ratio 0.8 L Micro: Microbiology 07/30/22 Unknown Aspirate - Abdominal Gram Stain - Final 07/30/22 Unknown Aspirate - Abdominal Wound Culture - Final Klebsiella pneumoniae sp pneum 07/30/22 Unknown Aspirate - Abdominal Anaerobic Culture - Final No anaerobic bacteria isolated. Physical Exam Narrative General: Alert, Oriented x3, Cooperative, No apparent distress HEENT: Atraumatic, PERRLA, EOMI, Normocephalic Oral: Moist Mucosa Neck: Supple, No JVD Lungs: Clear to auscultation, Normal air movement, No rhonchi, No wheeze, No rales Cardiovascular: Regular rate, Regular Rhythm, Normal S1, Normal S2, No murmurs Abdomen: Soft, not tender, Non-Distended, No Hepato-splenomegaly, RUSLAN with mostly serous fluid Extremities: No edema, Capillary Refill Less than 3 Seconds Skin: No rashes, No breakdown Musculoskeletal: No Tenderness to Palpation of Joints or Extremities Neurological: Cranial nerves II-XII grossly intact, Motor Exam 5/5 strength throughout, Sensory exam intact to light touch and pain Psych/Mental Status: Normal Affect, Appropriate Assessment & Plan Assessment/Plan (1) Acute cholecystitis: (2) MARY (acute kidney injury): PLAN: Plan 1. Acute cholecystitis status post cholecystectomy 08/02/2022/MARY * CT abdomen and pelvis showed multiple gallstones and gallbladder wall thickening as well as pericholecystic fluid. . * gallbladder USG showed similar findings with gallbladder wall thickening and pericholecystic fluid. * Renal function has returned to baseline with adequate p.o. intake * IV morphine prn for pain. * IV Levaquin for somewhat resistant Klebsiella pneumonia * Will continue to monitor the drainage from the RUSLAN, may still need an ERCP if drainage turns bilious 2. Non hodgkin's lymphoma * On chemotherapy. Follow-up with oncology on outpatient basis. 3. History of DVT: on eliquis. will hold for surgery 4. Hypothyroidism: on synthroid 5. Hypertension: on carvedilol DVT: Lovenox Charges/Coding Visit Charges Inpatient E&M: 92822 Subs Hosp L2
--- NOTE | 2022-08-04 10:03 | PCM.PN.SRG ---
Subjective Subjective Patient tolerating regular diet, RUSLAN serosanguineous minimal output, patient has minimal abdominal pain. Objective Data Objective Data Vital Signs: Vital Signs Temp Pulse Resp BP Pulse Ox O2 Del Method O2 Flow Rate 98.3 F 70 18 147/75 H 95 Room Air 1.5 08/04/22 07:39 08/04/22 07:39 08/04/22 07:39 08/04/22 07:39 08/04/22 07:39 08/04/22 07:39 08/02/22 21:12 Oxygen Flow Rate (L/min) [5] 2 Oxygen Flow Rate (L/min) [4] 2 Oxygen Flow Rate (L/min) [3] 2 Oxygen Flow Rate (L/min) [2] 2 Oxygen Flow Rate (L/min) 1.5 Oxygen Delivery Method [5] Room Air Oxygen Delivery Method [4] Nasal Cannula Oxygen Delivery Method [3] Nasal Cannula Oxygen Delivery Method [2] Nasal Cannula Oxygen Delivery Method [1 ( Room Air Initial Baseline)] Oxygen Delivery Method Room Air Weight: 212 lb 11.937 oz Body Mass Index (BMI) 38.9 Intake & Output: Intake and Output for Last 24 Hours 08/02/22 08/03/22 08/04/22 23:59 23:59 23:59 Intake Total 1850.00 / 1850.00 2677.5 / 2677.5 267.75 / 267.75 Output Total 910 / 910 1270 / 1735 720 / 720 Balance 940.00 / 940.00 1407.5 / 942.5 -452.25 / -452.25 Lab / Micro Data Result Diagrams: 08/04/22 06:57 08/04/22 06:57 Labs: Laboratory Results - last 24 hr 08/04/22 06:57: WBC 3.2 L, RBC 3.38 L, Hgb 10.4 L, Hct 32.3 L, MCV 95.6, MCH 30.8, MCHC 32.2, RDW Std Deviation 49.6 H, RDW Coeff of [place] 14.1, Plt Count 130 L, MPV 9.8, Immature Gran % (Auto) 0.600, Neut % (Auto) 62.9, Lymph % (Auto) 17.6 L, [place] % (Auto) 12.4 H, Eos % (Auto) 6.2 H, Baso % (Auto) 0.3, Absolute Neuts (auto) 2.0, Absolute Lymphs (auto) 0.57 L, Nucleated RBC % 0, Diff Path Review May foll, Platelet Estimate ADEQUATE, RBC Morphology NORM C+C 08/04/22 06:57: Sodium 143, Potassium 3.4 L, Chloride 110 H, Carbon Dioxide 26.0, Anion Gap 7, BUN 15, Creatinine 0.58, Estim Creat Clear Calc 36.67, Est GFR (MDRD) Af Amer 129, Est GFR (MDRD) Non-Af 107, BUN/Creatinine Ratio 25.9 H, Glucose 111 H, Calcium 8.6, Total Bilirubin 0.20, AST 17, ALT 10 L, Alkaline Phosphatase 49, Total Protein 5.2 L, Albumin 2.3 L, Globulin 2.9, Albumin/Globulin Ratio 0.8 L Micro: Microbiology 07/30/22 Unknown Aspirate - Abdominal Gram Stain - Final 07/30/22 Unknown Aspirate - Abdominal Wound Culture - Final Klebsiella pneumoniae sp pneum 07/30/22 Unknown Aspirate - Abdominal Anaerobic Culture - Final No anaerobic bacteria isolated. Physical Exam Resp normal respiratory effort Cardio regular rate GI GI Narrative: Abdomen: Soft, nondistended, tender near incision's dressed clean dry and intact, no peritoneal signs, RUSLAN serosanguineous?removed at bedside Assessment & Plan Assessment/Plan (1) Acute cholecystitis: (2) Non Hodgkin's lymphoma: (3) Anticoagulant long-term use: (4) S/P laparoscopic cholecystectomy: PLAN: Plan Continue regular diet -RUSLAN till still serosanguineous removed at bedside. Okay to DC per surgery follow-up in 1 to 2 weeks in office. Okay to restart Eliquis Continue out of bed to chair and ambulation Kaylen Gonzalez M.D. Pager: [phone] [facility] [address] [place] [address], Outpatient [place], [address] [place] [address] Office: [phone]
--- NOTE | 2022-08-04 10:04 | DCINST_ITS ---
Discharge Instructions Diet Discharge Diet: Light diet - advance as tolerated Activity Discharge Activity: May Not Drive (while taking narcotic pain medications.) and May Shower May shower in (days): 1 Lifting Restrictions: no lifting >20 lbs x 2 wks, no strenuous exercise for 4 wks Dressing / Incision Call your doctor if your incision/area has: Continuous Slow Oozing, Sudden I ncreased Bleeding, Increased Pain/ Swelling, Increased Redness, Foul Smelling Discharge and Swelling at the incision site Call your doctor if you observe: Fever of 101 or Higher Remove Dressing in: 1 day Cleanse incision/area with: Soap & Water Additional Dressing/Incision Instructions:: Change RUSLAN site dressing as needed and daily until there is no drainage then okay to leave open. Steri-Strips will fall off in 7 to 10 days, if they do not fall off okay to remove after 10 days. Follow Up Care Please Follow Up With: Kaylen Gonzalez MD When: Call the office for a follow-up appointment 1-2 weeks; after 5 PM and on the weekends call [phone] with any concerns. Test Results: Test results from this visit will be discussed in further detail at your follow- up appointment, if applicable. Discharge Plan Admission Admit Date/Time: 07/30/22 12:51 Attending Provider: Kenyon Joiner Primary Care Provider: Ever Kilgore Consulting Providers: Kaylen Gonzalez ; Vikki Stanley ; James Escudero Discharge Orders/Prescriptions Prescriptions: New oxycodone-acetaminophen 5-325 mg tablet 1 tab PO Q6H PRN (Reason: pain) 3 Days Qty: 7 0RF Continued potassium chloride 10 MEQ tablet 10 meq PO BID multivitamin with folic acid [Thera] 1 TABLET tablet 1 tab PO DAILY famotidine 20 mg Tablet 20 mg PO DAILY carvedilol [Coreg] 12.5 mg Tablet 12.5 mg PO BID Rx Instructions: must administer with a meal/food levothyroxine 75 mcg Tablet 75 mcg PO DAILY gabapentin 300 mg Capsule 300 mg PO TID Held apixaban 5 MG tablet 5 mg PO BID Hold Instructions: Resume on 08/05/22. Referrals / Follow Up: Ever Kilgore MD [Primary Care Provider] -
--- NOTE | 2022-08-04 10:13 | DS.PCM_ITS ---
Providers Date of Admission: 07/30/22 Primary Care Physician: Dr. Ever Kilgore MD Consultations 07/30/22 18:09 Consult: General Surgery Routine Consulting Provider: Kaylen Gonzalez Reason for Consult: acute cholecystitis EMERGENT Consult: No MD Notified: Yes Date Notified: 07/30/22 Time Notified: 13:00 Method of Notification: already saw patient in ED Reason For Visit: cholecitytits Diagnosis Discharge Diagnosis (1) Acute cholecystitis: Status: Resolved Code(s): K81.0 - Acute cholecystitis (2) Non Hodgkin's lymphoma: Status: Acute Code(s): C85.90 - Non-Hodgkin lymphoma, unspecified, unspecified site (3) Anticoagulant long-term use: Status: Acute Code(s): Z79.01 - [employer] (current) use of anticoagulants (4) S/P laparoscopic cholecystectomy: Status: Acute Code(s): Z90.49 - Acquired absence of other specified parts of digestive tract Plan 1. Acute cholecystitis status post cholecystectomy 08/02/2022/MARY * CT abdomen and pelvis showed multiple gallstones and gallbladder wall thickening as well as pericholecystic fluid. . * gallbladder USG showed similar findings with gallbladder wall thickening and pericholecystic fluid. * Renal function has returned to baseline with adequate p.o. intake * IV morphine prn for pain. * IV Levaquin for somewhat resistant Klebsiella pneumonia * Will continue to monitor the drainage from the RUSLAN, may still need an ERCP if drainage turns bilious 2. Non hodgkin's lymphoma * On chemotherapy. Follow-up with oncology on outpatient basis. 3. History of DVT: on eliquis. will hold for surgery 4. Hypothyroidism: on synthroid 5. Hypertension: on carvedilol DVT: Lovenox Medications at Discharge Home Medications potassium chloride 10 mEq tablet,extended release(part/cryst) 10 meq PO BID supplement 06/07/18 multivitamin with folic acid 400 mcg tablet (Thera) 1 tab PO DAILY 08/01/18 apixaban 5 mg tablet 5 mg PO BID 08/13/20 carvedilol 12.5 mg tablet (Coreg) 12.5 mg PO BID heart 07/30/22 famotidine 20 mg tablet 20 mg PO DAILY 07/30/22 gabapentin 300 mg capsule 300 mg PO TID 07/30/22 levothyroxine 75 mcg tablet 75 mcg PO DAILY thyroid 07/30/22 oxycodone-acetaminophen 5 mg-325 mg tablet 1 tab PO Q6H PRN pain 3 days #7 tabs 08/04/22 Hospital Course Operations cholecystecomy Procedures - (Cholecystostomy tube placement) Summary of Care Provided Minutes Spent on Discharge: 45 Hospital Course: Per HPI: AYAZ HERNANDEZ, is a 76 F with a PMH as outlined who presents via the ED with a complaint of epigastric pain. Her symptoms had been going on for about 12 hours, with no aggravating or relieving factors, and was colicky in nature. She had no fever, chills, cough or any other symptoms. She denied any vomiting but admitted to nausea.? Review of systems was otherwise negative. She is on chemotherapy for NHL and says she has had one session so far. Vitals were BP of 181/86, NH of 77 and RR of 15; she is on room air and saturating at 96%. CBC shwoed hb of 12.7, wbc of 4.4 and platelets of 114.? Chemistry was essentially WNL. CT abdomen and pelvis showed multiple gallstones with gallbladder wall thickening and pericholecystic fluid. Gallbladder USG showed multiple gallstones with gallbladder wall thickening and pericholecystic fluid. She is being admitted to be managed for acute cholecystitis. Hospital course: 1. Acute cholecystitis status postcholecystectomy 08/02/2022/MARY?76-year-old female presented to the hospital with epigastric and right upper quadrant abdominal pain. She was found to have significant cholecystitis and the fact that she was on Eliquis precluded immediate surgery so a cholecystostomy tube was placed and this provided immediate relief. She was started on Zosyn, culture data came back as a moderately resistant Klebsiella so she was transi tioned to Levaquin for few days. She did have her gallbladder removed and a RUSLAN was placed as a precaution. Over her recovery the RUSLAN did not have any bilious drainage so it was removed on the day of discharge. Since her gallbladder was removed she will not need antibiotics on discharge. She was provided pain medications by general surgery who will see her in the next couple of weeks for outpatient follow-up. I also recommended she follow-up with her PCP in 3 to 5 days. I discussed with her the plan for discharge today she expressed understanding of the risk and benefits of going home and would like to go home today. Of note she was having some right shoulder pain postoperatively and this is likely referred pain from insufflation though if as an outpatient this pain has not improved by the time she follows up with her PCP may benefit from a right shoulder x-ray. 2. Non-Hodgkin's lymphoma, history of DVT, hypothyroidism, hypertension are all chronic medical can complicate care. Medic Nations were continued where appropriate. Weight / BMI Weight Weight: 212 lb 11.937 oz Body Mass Index (BMI) 38.9 ABG / Lab / Microbiology Data Result Diagrams: 08/04/22 06:57 08/04/22 06:57 Laboratory: Laboratory Results - last 24 hr 08/04/22 06:57: WBC 3.2 L, RBC 3.38 L, Hgb 10.4 L, Hct 32.3 L, MCV 95.6, MCH 30.8, MCHC 32.2, RDW Std Deviation 49.6 H, RDW Coeff of [place] 14.1, Plt Count 130 L, MPV 9.8, Immature Gran % (Auto) 0.600, Neut % (Auto) 62.9, Lymph % (Auto) 17.6 L, [place] % (Auto) 12.4 H, Eos % (Auto) 6.2 H, Baso % (Auto) 0.3, Absolute Neuts (auto) 2.0, Absolute Lymphs (auto) 0.57 L, Nucleated RBC % 0, Diff Path Review January, Platelet Estimate ADEQUATE, RBC Morphology NORM C+C 08/04/22 06:57: Sodium 143, Potassium 3.4 L, Chloride 110 H, Carbon Dioxide 26.0, Anion Gap 7, BUN 15, Creatinine 0.58, Estim Creat Clear Calc 36.67, Est GFR (MDRD) Af Amer 129, Est GFR (MDRD) Non-Af 107, BUN/Creatinine Ratio 25.9 H, Glucose 111 H, Calcium 8.6, Total Bilirubin 0.20, AST 17, ALT 10 L, Alkaline Phosphatase 49, Total Protein 5.2 L, Albumin 2.3 L, Globulin 2.9, Albumin/Globulin Ratio 0.8 L Microbiology: Microbiology 07/30/22 Unknown Aspirate - Abdominal Gram Stain - Final 07/30/22 Unknown Aspirate - Abdominal Wound Culture - Final Klebsiella pneumoniae sp pneum 07/30/22 Unknown Aspirate - Abdominal Anaerobic Culture - Final No anaerobic bacteria isolated. D/C Instructions Discharge Diet: Light diet - advance as tolerated May shower in (days): 1 Call your doctor if your incision/area has: Continuous Slow Oozing, Sudden Increased Bleeding, Increased Pain/ Swelling, Increased Redness, Foul Smelling Discharge and Swelling at the incision site Call your doctor if you observe: Fever of 101 or Higher, Shortness of breath, Dizziness, Fainting spells, Swelling in the ankles, Chest pain and Increased palpitations (irregular heartbeat) Cleanse incision/area with: Soap & Water Additional Dressing/Incision Instructions: Change RUSLAN site dressing as needed and daily until there is no drainage then okay to leave open. Steri-Strips will fall off in 7 to 10 days, if they do not fall off okay to remove after 10 days. Please Follow Up With: Kaylen Gonzalez MD When: Call the office for a follow-up appointment 1-2 weeks; after 5 PM and on the weekends call [phone] with any concerns. Meaningful Use Info Meaningful Use Diagnoses (Choose all that apply): None applicable Discharge Plan Admission Admit Date/Time: 07/30/22 12:51 Attending Provider: Kenyon Joiner Primary Care Provider: Ever Kilgore Consulting Providers: Kaylen Gonzalez ; Vikki tSanley ; James Escudero Discharge Orders/Prescriptions Prescriptions: New oxycodone-acetaminophen 5-325 mg tablet 1 tab PO Q6H PRN (Reason: pain) 3 Days Qty: 7 0RF Continued potassium chloride 10 MEQ tablet 10 meq PO BID multivitamin with folic acid [Thera] 1 TABLET tablet 1 tab PO DAILY famotidine 20 mg Tablet 20 mg PO DAILY carvedilol [Coreg] 12.5 mg Tablet 12.5 mg PO BID Rx Instructions: must administer with a meal/food levothyroxine 75 mcg Tablet 75 mcg PO DAILY gabapentin 300 mg Capsule 300 mg PO TID Held apixaban 5 MG tablet 5 mg PO BID Hold Instructions: Resume on 08/05/22. Referrals / Follow Up: Kaylen Gonzalez MD [Med Staff - Active Staff] - Within 2 Weeks Ever Kilgore MD [Primary Care Provider] - Within 1 Week Disposition Disposition (needs filled in before D/C Order can be placed): Home, Self Care Charges/Coding Visit Charges Inpatient E&M: [id number] Disch Hosp
[2022-08-04 10:30] VITALS: BP 147/75; PULSE 70; RESP 18; TEMP 36.8; O2SAT 95
[2022-08-04] MEDS: Famotidine 20 MG Tablet PO (10:48)
[2022-08-04] MEDS: Docusate Sodium 100 MG Capsule PO (10:48)
[2022-08-04] MEDS: Carvedilol 12.5 MG Tablet PO (10:48)
[2022-08-04 15:00] VITALS: BP 154/70; PULSE 70; RESP 18; TEMP 37; O2SAT 95
[2022-08-06 07:32] LABS: Pathologist Review Reviewed
== END 2022-08-04 15:02 | disposition home or self-care (01) | DRG 418 ==
LOC: ED 12:15 → MS3 12:55
PROVIDERS: Surgery; Admitting Provider Student in an Organized Health Care Education/Training Program; Emergency Provider Emergency Medicine; PCP Family Medicine; Visit Provider Family Medicine
PROC: 0FB44ZZ Excision of Gallbladder, Percutaneous Endoscopic Approach (ICD-10-PCS; CPT 47610; principal; 2022-08-02 07:10)
DX: K80.00 Calculus of gallbladder with acute cholecystitis without obstruction (principal); C85.90 Non-Hodgkin lymphoma, unspecified, unspecified site; N17.9 Acute kidney failure, unspecified; G25.81 Restless legs syndrome; E03.9 Hypothyroidism, unspecified; K82.8 Other specified diseases of gallbladder; I10 Essential (primary) hypertension; Z79.01 Long term (current) use of anticoagulants; Z79.2 Long term (current) use of antibiotics; Z53.39 Other specified procedure converted to open procedure; Z86.718 Personal history of other venous thrombosis and embolism
CPT/HCPCS: 36415; 36591; 71045; 74177; 75989; 76705; 80048; 80053; 83690; 84484; 85025; 87070; 87075; 87077; 87186; 87205; 88304; 93005; 97110; 97162; 97166; 97530; 97535; 99152; 99153; 99251; 99283; J7030; J7050; J7120; Q9967; A4216; G0463; J2405; J3490

== ENCOUNTER 2024-03-24 09:29 | Inpatient (IN) | payer MEDICARE, OTHER, SELFPAY ==
[2024-03-24] VITALS (18 sets, daily range): BP systolic 159–244; BP diastolic 64–113; PULSE 62–73; RESP 12–18; TEMP 35.7–36.9; O2SAT 95–100; BMI 42.4; BMI 42.5
--- NOTE | 2024-03-24 09:50 | EX.ED.DYSGE1 ---
HPI History of Present Illness Chief Complaint: Diarrhea Informant: patient Onset/Context/Timing Onset: Month(s) Narrative Narrative: Patient presents with 2-month history of diarrhea. She states that she was having frequent stools and would take [id number]-oocwocj antidiarrheal medicine. She then would get constipated for short time. She saw her PCP who reportedly ran stool studies. She is scheduled to see a surgeon on Friday to schedule a colonoscopy. Patient states she was told not to take the antidiarrheal medication. She presents today because of ongoing diarrhea with weakness and some intermittent hallucinations. She does report some chills but no fever. [facility] Medical History DVT (deep venous thrombosis) Post-menopausal Dyspnea History of stress test Ovarian tumor Anticoagulant long-term use Non Hodgkin's lymphoma Dehiscence of surgical wound GERD (gastroesophageal reflux disease) Restless leg syndrome Peripheral neuropathy Osteoarthritis Hypertension Morbid obesity with BMI of 40.0-44.9, adult Home Medications ?Medication ?Instructions ?Recorded ?Last Taken ?Type potassium chloride 10 mEq 10 meq PO BID supplement 06/07/18 07/29/22 History tablet,extended release(part/cryst) multivitamin with folic acid 400 1 tab PO DAILY 08/01/18 07/29/22 History mcg tablet (Thera) apixaban 5 mg tablet 5 mg PO BID 08/13/20 07/29/22 History carvedilol 12.5 mg tablet (Coreg) 12.5 mg PO BID heart 07/30/22 07/29/22 History gabapentin 300 mg capsule 300 mg PO TID 07/30/22 07/29/22 History levothyroxine 75 mcg tablet 75 mcg PO DAILY thyroid 07/30/22 07/29/22 History pantoprazole 40 mg tablet,delayed 40 mg PO DAILY #30 tabs 08/19/22 Unknown Rx release (Protonix) Allergy/AdvReac Type Severity Reaction Status Date / Time COVID-19 vaccine, mRNA, Allergy Anaphylaxis Verified 03/24/24 09:30 [id number], erythromycin base Allergy Rash Verified 03/24/24 09:30 (Erythromycin Base) lisinopril Allergy Swelling Verified 03/24/24 09:30 venom-wasp (wasp) Allergy NEEDS Verified 03/24/24 09:30 FOLLOW-UP amlodipine AdvReac Swelling Verified 03/24/24 09:30 latex AdvReac Swelling Verified 03/24/24 09:30 Family History Mother Hypertension Surgical History S/P laparoscopic cholecystectomy S/P hysterectomy H/O laminectomy History of partial nephrectomy History of tonsillectomy History of total knee arthroplasty History of total abdominal hysterectomy Social History Smoking Status: Never smoker ROS ROS ED Constitutional Constitutional ED: Reports chills; Denies fever(s) Eyes Eyes: Denies change in vision ENT ENT ED: Denies rhinorrhea or sore throat Cardiovascular Cardiovascular: Denies chest pain or palpitations Respiratory/Chest Respiratory/Chest: Denies cough or dyspnea Gastrointestinal Gastrointestinal: Reports abdominal pain and diarrhea; Denies nausea or vomiting Genitourinary Genitourinary ED: Reports dysuria and other Details: Decreased urine output Musculoskeletal Musculoskeletal: Denies back pain or extremity pain Integumentary Denies Abrasions or rash Neurologic Neurologic: Reports weakness; Denies headache(s) Psychiatric Psychiatric: Denies anxiety or depression Allergic/Immunologic Allergic/Immunologic ED: Denies lip swelling or urticaria EXAM Physical Exam Const Vital Signs: 03/24/24 09:30 03/24/24 10:27 03/24/24 10:42 Temperature 96.2 F L Temperature Source Temporal Pulse Rate 72 62 64 Respiratory Rate 18 12 13 Blood Pressure 212/113 H 211/86 H 165/95 H Blood Pressure Mean 146 127 118 Pulse Ox 100 97 Oxygen Delivery Method Room Air Room Air 03/24/24 11:00 03/24/24 12:00 03/24/24 12:24 Temperature Temperature Source Pulse Rate 65 67 Respiratory Rate 16 18 Blood Pressure 244/92 H 204/88 H 211/93 H Blood Pressure Mean 142 126 132 Pulse Ox 97 97 Oxygen Delivery Method Room Air Room Air 03/24/24 12:33 03/24/24 12:48 03/24/24 13:00 Temperature Temperature Source Pulse Rate 68 64 Respiratory Rate 12 12 Blood Pressure 218/98 H 216/96 H 221/96 H Blood Pressure Mean 138 136 137 Pulse Ox 97 97 Oxygen Delivery Method Room Air Room Air 03/24/24 13:30 Temperature Temperature Source Pulse Rate 63 Respiratory Rate 16 Blood Pressure 195/84 H Blood Pressure Mean 121 Pulse Ox 96 Oxygen Delivery Method Room Air Positive well nourished and well developed General Appearance ED: well developed HEENT Reports dry mucous membranes Mouth ED: Yes dry mucous membranes Mouth: dry mucous membranes Eyes EOMs intact bilaterally Chest Wall inspection of chest normal and palpation of chest normal Resp normal respiratory effort and clear to auscultation bilaterally Cardio regular rate and regular rhythm GI GI Narrative: Abdomen soft with hypoactive bowel sounds. No focal tenderness. No palpable masses. Extremity normal to inspection Neuro oriented x3 Neuro Narrative: No focal neurologic deficit. Psych mental status grossly normal Skin no rashes or lesions noted MDM MDM MDM Narrative Medical decision making narrative: IV line established. Patient given IV fluids. Labwork obtained to evaluate for leukocytosis, anemia, and electrolyte derangement. Urinalysis obtained to evaluate for infection/hematuria. Stool studies ordered if able to provide a sample. History & Record Review Discussion w/independent historian: Patient Lab Data Attestation: I reviewed the patient's lab results. Labs: Laboratory Results - last 24 hr 03/24/24 03/24/24 09:55 11:16 WBC 5.0 RBC 4.28 Hgb 13.2 Hct 40.9 MCV 95.6 MCH 30.8 MCHC 32.3 RDW Std Deviation 46.8 H RDW Coeff of [place] 13.2 Plt Count 143 L MPV 9.5 Immature Gran % (Auto) 0.600 Neut % (Auto) 65.5 Lymph % (Auto) 21.8 [place] % (Auto) 8.7 Eos % (Auto) 3.0 Baso % (Auto) 0.4 Absolute Neuts (auto) 3.2 Absolute Lymphs (auto) 1.08 Nucleated RBC % 0 Sodium 140 Potassium 3.5 Chloride 106 Carbon Dioxide 27.0 Anion Gap 7 BUN 11 Creatinine 0.72 Estim Creat Clear Calc 63.89 Est GFR (MDRD) Af Amer 100 Est GFR (MDRD) Non-Af 83 BUN/Creatinine Ratio 15.3 Glucose 115 H Lactic Acid 1.1 Calcium 9.5 Total Bilirubin 0.50 Direct Bilirubin 0.13 AST 12 L ALT 10 L Alkaline Phosphatase 75 Total Protein 6.2 L Albumin 3.4 Globulin 2.8 Lipase 34 Urine Color Yellow Urine Clarity Clear Urine pH 7.0 Ur Specific [place] 1.005 Urine Protein Negative Urine Glucose (UA) Normal Urine Ketones Negative Urine Occult Blood Negative Urine Nitrite Negative Urine Bilirubin Negative Urine Urobilinogen Normal Ur Leukocyte Esterase Negative Urine RBC 0 SEEN Urine WBC 0 SEEN Ur Squamous Epith Cells 0 SEEN Urine Bacteria 0 SEEN Urine Mucus 0 SEEN Radiography Diagnostic Testing: Clinical Impression(s) from Imaging Studies Abdomen/Pelvis CT 03/24/24 10:24 IMPRESSION: No focal acute inflammatory process. Electronically Signed: Jay Arias MD at 11:30 EDT , Brain CT 03/24/24 10:24 IMPRESSION: No acute intracranial process. Electronically Signed: Jay Arias MD at 11:34 EDT , Treatment and Re-Evaluation :: CBC was a white count of 5.0 with normal differential. Hemoglobin is 13.2. Chemistry studies are unremarkable. LFTs are normal along with lipase. Urinalysis reveals no evidence of infection. Negative ketones noted. CT scan of the abdomen pelvis reveals no focal acute inflammatory process. CT scan of the head reveals no acute process. Patient did take her blood pressure medicines this morning. Unfortunately, her blood pressure remains significantly elevated here. She has been given a dose of hydralazine followed by 2 doses of IV labetalol. Blood pressure is still around 190s systolic. She does complain of a mild headache and was given a dose of Tylenol. Patient feels that she is very weak and is concerned that she is going to fall at home. I did order stool studies here, however patient states her sample was contaminated with urine and they were not able to send it. I will speak with hospitalist regarding admission given her generalized weakness as well as persistent hypertension. Discharge Plan Triage Chief Complaint: Diarrhea ED Provider: Rose Marie Joyner Dx/Rx/DC Orders Clinical Impression: Hypertension, Weakness, Diarrhea Prescriptions: No Action pantoprazole [Protonix] 40 mg tablet,delayed release (DR/EC) 40 mg PO DAILY Qty: 30 4RF potassium chloride 10 MEQ tablet 10 meq PO BID multivitamin with folic acid [Thera] 1 TABLET tablet 1 tab PO DAILY apixaban 5 MG tablet 5 mg PO BID carvedilol [Coreg] 12.5 mg Tablet 12.5 mg PO BID Rx Instructions: must administer with a meal/food levothyroxine 75 mcg Tablet 75 mcg PO DAILY gabapentin 300 mg Capsule 300 mg PO TID Primary Care Provider: Ever Kilgore Referrals: Ever Kilgore MD [Primary Care Provider] - Print Language: Ukrainian Disposition Disposition: Acute Care Hospital [facility]
[2024-03-24 10:09] LABS: Absolute Lymphocyte Count 1.08 X10^3/uL (0.83-4.51); Absolute Neutrophil Count 3.2 X10^3/uL (2.0-7.7); Basophil# 0.02 X10^3/uL; Basophil% 0.4 % (0-1); Eosinophil# 0.15 X10^3/uL; Hematocrit 40.9 % (37-47); Hemoglobin 13.2 g/dL (12.0-15.0); Lymphocyte # 1.08 X10^3/ul (0.83-4.51); Lymphocyte % 21.8 % (19-41); Mean Corp Hgb Conc 32.3 g/dL (32-36); Mean Corpuscular Hgb 30.8 pg (27.0-32.0); Mean Corpuscular Volume 95.6 fL (81-99); Mean Platelet Vol. 9.5 fl (6.2-12.0); Monocyte# 0.43 X10^3/uL; Monocyte% 8.7 % (0-10); NRBC Flagged by Analyzer 0 % (0-5); Neutrophil # 3.24 X10^3/uL (2.7-7.7); Neutrophil % 65.5 % (47-70); Platelet Count 143 K/mm3 (150-450); RBC Distribution Width CV 13.2 % (11.6-14.6); RBC Distribution Width SD 46.8 fl (35.1-43.9); Red Blood Count 4.28 M/mm3 (4.2-5.4)
[2024-03-24 10:22] LABS: AST(SGOT) 12 U/L (15-37); Alanine Aminotransfer ALT/SGPT 10 U/L (13-56); Albumin, Serum 3.4 g/dL (3.2-5.0); Alkaline Phosphatase 75 U/L (45-117); Anion Gap 7 (5-15); BUN 11 mg/dL (7-18); BUN/Creat Ratio 15.3 RATIO (10-20); Bilirubin, Direct 0.13 mg/dL (0.00-0.30); Calcium,Total 9.5 mg/dL (8.5-10.1); Chloride 106 mmol/L (98-107); Creatinine, Serum 0.72 mg/dL (0.55-1.02); EST Glomerular Filtration Rate 83 mL/min (>60); Est Glom Filt Rate - Afr Amer 100 mL/min (>60); Estimated Creatinine Clearance 63.89 ml/min; Globulin 2.8 g/dL (2.2-4.2); Glucose 115 mg/dL (74-106); Lipase 34 U/L (13-75); Potassium 3.5 mmol/L (3.5-5.1); Protein, Total 6.2 g/dL (6.4-8.2); Sodium Level 140 mmol/L (136-145)
[2024-03-24] MEDS: 0.9% Normal Saline (1000mL) 1,000 ML 1000 ML IV (10:23)
--- NOTE | 2024-03-24 10:24 | CT_ITS ---
INDICATION: HTN, hallucinations EXAMINATION: CT BRAIN - CT Head or Brain W/O Contrast Injection TECHNIQUE: Multiple axial images were obtained of the head without intravenous contrast. The protocol utilizes one or more of the following dose reduction techniques: automated exposure control, adjustment of mA and/or kV according to patient size,and/or use of iterative reconstruction technique. IV Contrast dosage and agent: None. RADIATION DOSAGE (If Supplied By Facility): CTDIvol = ( 44.99 ) mGy, DLP = ( 829.85 ) mGycm COMPARISON: Prior study dated: 04/29/2019 FINDINGS: BRAIN PARENCHYMA: No intra- or extra-axial hemorrhage. No evidence of acute infarct. No intracranial mass or mass effect. There is preservation of the goff/white matter interface. Mild chronic periventricular deep white matter changes. Posterior fossa structures are unremarkable. CSF SPACES: Appropriate for age. No hydrocephalus. Basal cisterns are patent. CALVARIUM, SKULL BASE, PARANASAL SINUSES AND MASTOID AIR CELLS: Mucosal thickening of the left maxillary sinus. No discrete lytic or blastic abnormalities. ORBITS: Both globes, extraocular muscles, optic nerves and retrobulbar fat appear unremarkable. CT/Brain/Head without Contrast IMPRESSION: No acute intracranial process. Electronically Signed: Jay Arias MD at 11:34 EDT ,
--- NOTE | 2024-03-24 10:24 | CT_ITS ---
STUDY: CT ABDOMEN AND PELVIS WITH CONTRAST REASON FOR EXAM: Female, 78 years old. Abdominal pain, diarrhea RADIATION DOSAGE (If Supplied By Facility): CTDIvol = ( 15.42 ) mGy, DLP = ( 1212.91 ) mGycm TECHNIQUE: IV 100mL [id number]-[id number] was administered. Transaxial images were obtained from the dome of the diaphragm to the symphysis pubis. Multiplanar coronal and sagittal images were reformatted. The protocol utilizes one or more of the following dose reduction techniques: automated exposure control, adjustment of mA and/or kV according to patient size,and/or use of iterative reconstruction technique. COMPARISON: No relevant prior comparison study available FINDINGS: The visualized lung bases are unremarkable. The visualized portions of the heart are within normal limits. Coronary calcifications are seen. Scattered small calcifications. No focal lesion is seen in the liver. The gallbladder is contracted. There are multiple benign calcified granulomata of the spleen. Normal pancreas. Normal bilateral adrenal glands. There is a small hiatal hernia. Normal in caliber small bowel loops. No evidence of acute diverticulitis. The appendix is visualized and appears normal. Mild tortuosity of the abdominal aorta without evidence of aneurysm. IVC filter is seen. No retroperitoneal adenopathy. Unremarkable kidneys. No evidence of hydronephrosis. Normal urinary bladder. There is absence of the uterus consistent with a prior hysterectomy. Diastases of the anterior rectus muscles and small umbilical hernia containing fat. Multilevel degenerative changes of the spine. CT/Abdomen/Pelvis W IV Cont ONLY IMPRESSION: No focal acute inflammatory process. Electronically Signed: Jay Arias MD at 11:30 EDT ,
[2024-03-24 10:46] LABS: Lactic Acid 1.1 mmol/L (0.4-1.9)
[2024-03-24 11:20] LABS: Bacteria 0 SEEN /hpf (None Seen); Mucous, Urine 0 SEEN /hpf (<or=2+); Red Blood Cells-Urine 0 SEEN /hpf (0-5); Squamous Epithelial Cells - UA 0 SEEN /hpf (5-10); White Blood Cells 0 SEEN /hpf (0-5)
[2024-03-24 11:23] LABS: Color, Urine Yellow (Yellow); Glucose, Dipstick Normal (Normal); Ketone-Dipstick Negative (Negative); Leukocyte Esterase-Dipstick Negative /ul (Negative); Nitrite-Dipstick Negative (Negative); Occult Blood-Urine Negative /ul (Negative); Protein-Dipstick Negative (Negative); Specific Gravity, Urine 1.005 (1.002-1.030); Urine Bilirubin Dipstick Negative (Negative); Urine Clarity Clear (Clear); Urine Urobilinogen Normal (Normal)
[2024-03-24] MEDS: hydrALAZINE 20 MG/ML Vial 10 MG IV (11:29)
[2024-03-24] MEDS: 0.9% Normal Saline (1000mL) 1,000 ML 150 ML IV (12:02)
[2024-03-24] MEDS: Labetalol (Prefilled) 20 MG/4 ML 10 MG IV (12:33)
[2024-03-24] MEDS: Acetaminophen 500 MG Tablet 1000 MG PO (13:34)
[2024-03-24] MEDS: Labetalol (Prefilled) 20 MG/4 ML IV ×2 (13:34→15:27)
--- NOTE | 2024-03-24 15:22 | HP.PCM.HOS_ITS ---
HPI - General General Date of Admission: 03/24/24 Date of Service: 03/24/24 Chief Complaint: Gen weakness, diarrhea, headaches HPI Narrative AYAZ HERNANDEZ, is a 78-year-old female with history of hypertension, GERD, DVT, hypothyroidism morbid obesity, RLS who presented to [facility] ED 03/24/2024 due to diarrhea and general weakness. She has had diarrhea for 2 months and is awaiting outpatient surgery consult for colonoscopy schedule next week however she is becoming progressively weaker prompting her ED arrival today. In the ED lab workup fairly benign but patient had consistent significantly elevated blood pressure refractory to multiple rounds of IV medication prompting hospitalist to be contacted for admission for refractory hypertension and generalized weakness. Patient evaluated at bedside and reports the weakness worsening over the past couple of months, has about 3 episodes of diarrhea a day but has been thickening up somewhat. Does report she has had some headaches over the past 2 months and on Friday felt very suspicious in her house and unlike herself that is since resolved. Denies fevers or chills, no abdominal pain, sometimes feels like her eyes hurt but denies any overt changes in vision, has some chronic swelling in lower extremities. [facility] Medical History DVT (deep venous thrombosis) Post-menopausal Dyspnea History of stress test Ovarian tumor Anticoagulant long-term use Non Hodgkin's lymphoma Dehiscence of surgical wound GERD (gastroesophageal reflux disease) Restless leg syndrome Peripheral neuropathy Osteoarthritis Hypertension Morbid obesity with BMI of 40.0-44.9, adult Home Medications ?Medication ?Instructions ?Recorded ?Last Taken ?Type potassium chloride 10 mEq 10 meq PO BID supplement 06/07/18 03/24/24 History tablet,extended release(part/cryst) multivitamin with folic acid 400 1 tab PO DAILY 08/01/18 03/24/24 History mcg tablet (Thera) apixaban 5 mg tablet 5 mg PO BID 08/13/20 03/24/24 History levothyroxine 75 mcg tablet 75 mcg PO DAILY thyroid 07/30/22 03/24/24 History biotin 1 tab PO DAILY 03/24/24 Unknown History carvedilol 25 mg tablet 25 mg PO BID 03/24/24 03/24/24 History gabapentin 400 mg capsule 400 mg PO TID 03/24/24 03/24/24 History hydralazine 50 mg tablet 50 mg PO BID 03/24/24 03/24/24 History paroxetine HCl 10 mg tablet 10 mg PO DAILY 03/24/24 03/24/24 History Allergy/AdvReac Type Severity Reaction Status Date / Time COVID-19 vaccine, mRNA, Allergy Anaphylaxis Verified 03/24/24 09:30 [id number], erythromycin base Allergy Rash Verified 03/24/24 09:30 (Erythromycin Base) lisinopril Allergy Swelling Verified 03/24/24 09:30 venom-wasp (wasp) Allergy NEEDS Verified 03/24/24 09:30 FOLLOW-UP amlodipine AdvReac Swelling Verified 03/24/24 09:30 latex AdvReac Swelling Verified 03/24/24 09:30 Family History Mother Hypertension Surgical History S/P laparoscopic cholecystectomy S/P hysterectomy H/O laminectomy History of partial nephrectomy History of tonsillectomy History of total knee arthroplasty History of total abdominal hysterectomy Social History Smoking Status: Never smoker ROS ROS Narrative General: Denies fever/chills HENT: Intermittent headaches especially right side of head, denies stuffy nose, denies sore throat EYES: Denies changes in vision but sometimes looking behind her eyes when she has a headache Resp: Denies cough, denies shortness of breath Cardiac: Denies chest pain GI: Denies abdominal pain, 3 bowel movements a day, denies nausea/vomiting : Denies changes in urination Extremity: Reports some chronic swelling in lower extremities MSK: Some generalized weakness Neuro: Denies any numbness/tingling Heme: Denies any bleeding or bruising Skin: Denies rashes Psychiatric: No complaints voiced Vital Signs Vital Signs Vital Signs: 03/24/24 09:30 03/24/24 10:27 03/24/24 10:42 Temperature 96.2 F L Temperature Source Temporal Pulse Rate 72 62 64 Respiratory Rate 18 12 13 Blood Pressure 212/113 H 211/86 H 165/95 H Blood Pressure Mean 146 127 118 Pulse Ox 100 97 Oxygen Delivery Method Room Air Room Air 03/24/24 11:00 03/24/24 12:00 03/24/24 12:24 Temperature Temperature Source Pulse Rate 65 67 Respiratory Rate 16 18 Blood Pressure 244/92 H 204/88 H 211/93 H Blood Pressure Mean 142 126 132 Pulse Ox 97 97 Oxygen Delivery Method Room Air Room Air 03/24/24 12:33 03/24/24 12:48 03/24/24 13:00 Temperature Temperature Source Pulse Rate 68 64 Respiratory Rate 12 12 Blood Pressure 218/98 H 216/96 H 221/96 H Blood Pressure Mean 138 136 137 Pulse Ox 97 97 Oxygen Delivery Method Room Air Room Air 03/24/24 13:30 03/24/24 14:00 03/24/24 15:00 Temperature 98.4 F Temperature Source Pulse Rate 63 66 65 Respiratory Rate 16 14 13 Blood Pressure 195/84 H 189/91 H 199/79 H Blood Pressure Mean 121 123 119 Pulse Ox 96 95 95 Oxygen Delivery Method Room Air Room Air Weight Weight: 105.233 kg Body Mass Index (BMI) 42.4 Physical Exam Narrative General: Alert, oriented, no apparent distress HEENT: Atraumatic, normocephalic Eyes: Anicteric, normal conjunctiva, extraocular movements grossly intact Neck: Supple Respiratory: Clear to auscultation bilaterally, normal respiratory effort Cardiovascular: Regular rate and rhythm GI: Soft, nontender, nondistended Extremities: No edema Musculoskeletal: Moving all extremities Neuro: No overt focal neurological deficits Skin: No rashes appreciated Psych: Cooperative Results Lab / Micro Data 03/24/24 09:55 03/24/24 09:55 Labs: Laboratory Results - last 24 hr 03/24/24 09:55: WBC 5.0, RBC 4.28, Hgb 13.2, Hct 40.9, MCV 95.6, MCH 30.8, MCHC 32.3, RDW Std Deviation 46.8 H, RDW Coeff of [place] 13.2, Plt Count 143 L, MPV 9.5, Immature Gran % (Auto) 0.600, Neut % (Auto) 65.5, Lymph % (Auto) 21.8, [place] % (Auto) 8.7, Eos % (Auto) 3.0, Baso % (Auto) 0.4, Absolute Neuts (auto) 3.2, Absolute Lymphs (auto) 1.08, Nucleated RBC % 0, Sodium 140, Potassium 3.5, Chloride 106, Carbon Dioxide 27.0, Anion Gap 7, BUN 11, Creatinine 0.72, Estim Creat Clear Calc 63.89, Est GFR (MDRD) Af Amer 100, Est GFR (MDRD) Non-Af 83, BUN/Creatinine Ratio 15.3, Glucose 115 H, Lactic Acid 1.1, Calcium 9.5, Total Bilirubin 0.50, Direct Bilirubin 0.13, AST 12 L, ALT 10 L, Alkaline Phosphatase 75, Total Protein 6.2 L, Albumin 3.4, Globulin 2.8, Lipase 34 03/24/24 11:16: Urine Color Yellow, Urine Clarity Clear, Urine pH 7.0, Ur Specific [place] 1.005, Urine Protein Negative, Urine Glucose (UA) Normal, Urine Ketones Negative, Urine Occult Blood Negative, Urine Nitrite Negative, Urine Bilirubin Negative, Urine Urobilinogen Normal, Ur Leukocyte Esterase Negative, Urine RBC 0 SEEN, Urine WBC 0 SEEN, Ur Squamous Epith Cells 0 SEEN, Urine Bacteria 0 SEEN, Urine Mucus 0 SEEN Imaging Radiology Impression Abdomen/Pelvis CT 03/24/24 10:24 IMPRESSION: No focal acute inflammatory process. Electronically Signed: Jay Arias MD at 11:30 EDT , Brain CT 03/24/24 10:24 IMPRESSION: No acute intracranial process. Electronically Signed: Jay Arias MD at 11:34 EDT , Assessment & Plan Assessment/Plan (1) Hypertension: (2) Morbid obesity with BMI of 40.0-44.9, adult: (3) Weakness: PLAN: Plan #HTN urgency vs emergency -Pt has had headaches off and on for the past 2 months, unclear if there is a direct correlation -Admit to tele -Has however had refractory hypertension to multiple IV medications -Patient on 25 twice daily of Coreg already and 50 of hydralazine twice daily, has had swelling with amlodipine and lisinopril -Will start oral clonidine, may need workup for secondary causes of hypertension pending improvement, can likely be done on outpatient basis -Check TSH and free T4 -Random cortisol -Lab workup fairly unremarkable # Generalized weakness -Will check B12, mag, TSH -IV fluids -PT/OT # Chronic diarrhea -3 times daily, has had outpatient stool studies which showed fecal leukocytes but nothing else -CT abdomen no acute process -Patient has surgery evaluation next week to discuss scheduling colonoscopy -Will check mag TSH, B12 #Hypothyroidism -Continue Synthroid #GERD -Continue PPI #Hx DVT -Continue eliquis #Morbid obesity -BMI 42.4 kg/m? -Complicates treatment, prognosis, outcomes -Recommend weight loss and lifestyle changes #DVT ppx: On Eliquis Maria Isabel Glover MD Time spent in the patient's overall evaluation,decision-making process, review of diagnostic data, adjustment of management, discussion with other providers, nursing nursing and ancillary staff involved in patient's care documentation, 56 minutes Charges/Coding Visit Charges Inpatient E&M: 04791 Init Hosp L2
[2024-03-24 16:56] LABS: Magnesium 1.7 mg/dL (1.6-2.6); Phosphorus 3.3 mg/dL (2.5-4.9); T4 Free Direct 1.43 ng/dL (0.76-1.46)
[2024-03-24] MEDS: 0.9% Normal Saline (1000mL) 1,000 ML 75 ML IV (18:34)
[2024-03-24] MEDS: cloNIDine HCl 0.1 MG Tablet PO ×2 (18:34→20:57)
[2024-03-24] MEDS: 0.9% Saline Lock 10 ML Syringe IV (18:37)
[2024-03-24] MEDS: Acetaminophen 325 MG Tablet 650 MG PO (18:44)
[2024-03-24] MEDS: APIXABAN 5 MG TABLET PO (20:56)
[2024-03-24] MEDS: Gabapentin 400 MG Capsule PO (20:56)
[2024-03-24] MEDS: hydrALAZINE 50 MG Tablet PO (20:57)
[2024-03-24] MEDS: Carvedilol 25 MG Tablet PO (22:00)
[2024-03-24] MEDS: Lactobacillis Acidophilus 1 CAP PO (23:51)
[2024-03-25] VITALS (11 sets, daily range): BP systolic 142–162; BP diastolic 58–79; PULSE 59–72; RESP 14–97; TEMP 36.2–36.8; O2SAT 96–97
[2024-03-25] MEDS: Gabapentin 400 MG Capsule PO ×3 (06:00→21:52)
[2024-03-25] MEDS: Levothyroxine 75 MCG Tablet PO (06:00)
[2024-03-25] MEDS: 0.9% Normal Saline (1000mL) 1,000 ML 75 ML IV (07:00)
[2024-03-25 07:12] LABS: Absolute Lymphocyte Count 0.97 X10^3/uL (0.83-4.51); Basophil# 0.02 X10^3/uL; Basophil% 0.6 % (0-1); Eosinophil# 0.14 X10^3/uL; Hematocrit 37.8 % (37-47); Lymphocyte # 0.97 X10^3/ul (0.83-4.51); Lymphocyte % 27.5 % (19-41); Mean Corp Hgb Conc 31.7 g/dL (32-36); Mean Corpuscular Volume 97.7 fL (81-99); Mean Platelet Vol. 9.4 fl (6.2-12.0); Monocyte# 0.39 X10^3/uL; NRBC Flagged by Analyzer 0 % (0-5); Neutrophil % 56.6 % (47-70); Platelet Count 129 K/mm3 (150-450); RBC Distribution Width CV 13.3 % (11.6-14.6); RBC Distribution Width SD 48.2 fl (35.1-43.9); Red Blood Count 3.87 M/mm3 (4.2-5.4); White Blood Count 3.5 K/mm3 (4.4-11.0)
[2024-03-25 07:52] LABS: ALB/GLOB Ratio 1.2 RATIO (0.9-2.4); AST(SGOT) 17 U/L (15-37); Alanine Aminotransfer ALT/SGPT 9 U/L (13-56); Albumin, Serum 3.1 g/dL (3.2-5.0); Alkaline Phosphatase 65 U/L (45-117); Anion Gap 6 (5-15); BUN 9 mg/dL (7-18); BUN/Creat Ratio 13.5 RATIO (10-20); Chloride 111 mmol/L (98-107); Creatinine, Serum 0.67 mg/dL (0.55-1.02); EST Glomerular Filtration Rate 90 mL/min (>60); Est Glom Filt Rate - Afr Amer 109 mL/min (>60); Estimated Creatinine Clearance 63.94 ml/min; Globulin 2.5 g/dL (2.2-4.2); Glucose 102 mg/dL (74-106); Magnesium 1.5 mg/dL (1.6-2.6); Potassium 3.4 mmol/L (3.5-5.1); Protein, Total 5.6 g/dL (6.4-8.2); Sodium Level 143 mmol/L (136-145)
[2024-03-25] MEDS: APIXABAN 5 MG TABLET PO ×2 (09:01→21:50)
[2024-03-25] MEDS: hydrALAZINE 50 MG Tablet PO ×2 (09:01→21:50)
[2024-03-25] MEDS: Potassium Chloride Oral Tablet 10 MEQ PO ×2 (09:01→16:48)
[2024-03-25] MEDS: Lactobacillis Acidophilus 1 CAP PO ×2 (09:01→21:50)
[2024-03-25] MEDS: cloNIDine HCl 0.1 MG Tablet PO ×2 (09:01→21:51)
[2024-03-25] MEDS: PARoxetine 10 MG Tablet PO (09:01)
[2024-03-25] MEDS: Carvedilol 25 MG Tablet PO ×2 (09:01→21:51)
[2024-03-25 15:26] LABS: Vitamin B12 824 pg/mL (211-911); Vitamin D,25 Hydroxy 53.3 ng/mL
[2024-03-25] MEDS: Magnesium Sulfate 2 GM in Dextrose 5%-Water (100mL Bag) 100 ML IV (15:35)
--- NOTE | 2024-03-25 17:15 | PN.HOSP_ITS ---
Subjective Subjective Doing well, feels better than on admission Objective Data Objective Data Vital Signs: Vital Signs Temp Pulse Resp BP Pulse Ox O2 Del Method 98.2 F 62 16 142/58 H 97 Room Air 03/25/24 15:22 03/25/24 15:22 03/25/24 15:22 03/25/24 15:22 03/25/24 15:22 03/25/24 15:22 Oxygen Delivery Method Room Air Weight: 232 lb 5.875 oz Body Mass Index (BMI) 42.5 Intake & Output: Intake and Output for Last 24 Hours 03/24/24 03/25/24 03/26/24 03:59 03:59 03:59 Intake Total 2370 / 2370 2482.5 / 2482.5 Balance 2370 / 2370 2482.5 / 2482.5 Lab / Micro Data 03/26/24 06:22 03/26/24 06:22 Labs: Laboratory Results - last 24 hr 03/24/24 16:25: Vitamin B12 824, Vitamin D 25-Hydroxy 53.3, Cortisol 6.20 03/25/24 06:50: WBC 3.5 L, RBC 3.87 L, Hgb 12.0, Hct 37.8, MCV 97.7, MCH 31.0, M CHC 31.7 L, RDW Std Deviation 48.2 H, RDW Coeff of [place] 13.3, Plt Count 129 L, MPV 9.4, Immature Gran % (Auto) 0.300, Neut % (Auto) 56.6, Lymph % (Auto) 27.5, [place] % (Auto) 11.0 H, Eos % (Auto) 4.0, Baso % (Auto) 0.6, Absolute Neuts (auto) 2.0, Absolute Lymphs (auto) 0.97, Nucleated RBC % 0, Sodium 143, Potassium 3.4 L , Chloride 111 H, Carbon Dioxide 26.0, Anion Gap 6, BUN 9, Creatinine 0.67, Estim Creat Clear Calc 63.94, Est GFR (MDRD) Af Amer 109, Est GFR (MDRD) Non-Af 90, BUN/Creatinine Ratio 13.5, Glucose 102, Calcium 9.0, Magnesium 1.5 L, Total Bilirubin 0.40, AST 17, ALT 9 L, Alkaline Phosphatase 65, Total Protein 5.6 L, A lbumin 3.1 L, Globulin 2.5, Albumin/Globulin Ratio 1.2 Micro: Microbiology 03/25/24 14:00 Stool Stool Lactoferrin - Final 03/25/24 14:00 Stool Clostridioides difficile (PCR) - Final Physical Exam Narrative General: Alert, Oriented x3, Cooperative, No apparent distress HEENT: Atraumatic, PERRLA, EOMI, Normocephalic Oral: Moist Mucosa Neck: Supple, No JVD Lungs: Diminished, Normal air movement, No rhonchi, No wheeze, No rales Cardiovascular: Regular rate, Regular Rhythm, Normal S1, Normal S2, No murmurs Abdomen: Soft, Non Tender, Non-Distended, No Hepato-splenomegaly Extremities: No edema, Capillary Refill Less than 3 Seconds Skin: No rashes, No breakdown Musculoskeletal: No Tenderness to Palpation of Joints or Extremities Neurological: No focal neurological deficits, Motor Exam 5/5 strength throughout, Sensory exam intact to light touch and pain Psych/Mental Status: Normal Affect, Appropriate Assessment & Plan Assessment/Plan (1) Hypertension: (2) Morbid obesity with BMI of 40.0-44.9, adult: (3) Weakness: PLAN: Plan 1. Hypertensive urgency ? Headaches are improved and her blood pressure is better controlled on the clonidine with her other home medications ? TSH as well as T4 and cortisol are all unremarkable ? Will continue with the clonidine on discharge 2. Generalized weakness with chronic diarrhea ? Stable, stool cultures are pending ? She says that the volume of stool has decreased to about 2 a day and is less liquid ? CT of the abdomen was negative 3. Hypothyroidism ? Stable ? Continue with Synthroid 4. History of DVT ? Stable ? Continue with Eliquis 5. Anxiety/depression ? Stable ? Continue with her home medications DVT: Eliquis Charges/Coding Visit Charges Inpatient E&M: 69886 Subs Hosp L2
[2024-03-26 03:00] VITALS: PULSE 61
[2024-03-26] MEDS: Levothyroxine 75 MCG Tablet PO (05:19)
[2024-03-26] MEDS: Gabapentin 400 MG Capsule PO (05:19)
[2024-03-26 07:02] LABS: Absolute Lymphocyte Count 1.11 X10^3/uL (0.83-4.51); Absolute Neutrophil Count 2.7 X10^3/uL (2.0-7.7); Basophil# 0.01 X10^3/uL; Basophil% 0.2 % (0-1); Eosinophil# 0.21 X10^3/uL; Eosinophils% 4.7 % (0-5); Hematocrit 34.8 % (37-47); Hemoglobin 11.1 g/dL (12.0-15.0); Lymphocyte # 1.11 X10^3/ul (0.83-4.51); Lymphocyte % 24.7 % (19-41); Mean Corp Hgb Conc 31.9 g/dL (32-36); Mean Corpuscular Hgb 31.4 pg (27.0-32.0); Mean Corpuscular Volume 98.3 fL (81-99); Mean Platelet Vol. 9.6 fl (6.2-12.0); Monocyte# 0.48 X10^3/uL; Monocyte% 10.7 % (0-10); NRBC Flagged by Analyzer 0 % (0-5); Neutrophil # 2.68 X10^3/uL (2.7-7.7); Neutrophil % 59.5 % (47-70); Platelet Count 109 K/mm3 (150-450); RBC Distribution Width CV 13.2 % (11.6-14.6); RBC Distribution Width SD 47.8 fl (35.1-43.9); Red Blood Count 3.54 M/mm3 (4.2-5.4); White Blood Count 4.5 K/mm3 (4.4-11.0)
[2024-03-26 07:15] LABS: Anion Gap 6 (5-15); BUN 12 mg/dL (7-18); BUN/Creat Ratio 17.8 RATIO (10-20); Calcium,Total 8.7 mg/dL (8.5-10.1); Chloride 110 mmol/L (98-107); Creatinine, Serum 0.67 mg/dL (0.55-1.02); EST Glomerular Filtration Rate 90 mL/min (>60); Est Glom Filt Rate - Afr Amer 108 mL/min (>60); Estimated Creatinine Clearance 63.94 ml/min; Glucose 111 mg/dL (74-106); Magnesium 1.8 mg/dL (1.6-2.6); Potassium 3.5 mmol/L (3.5-5.1); Sodium Level 142 mmol/L (136-145)
[2024-03-26 09:00] VITALS: BP 156/69; PULSE 59; RESP 18; TEMP 36.1; O2SAT 98
[2024-03-26] MEDS: Potassium Chloride Oral Tablet 10 MEQ PO (09:00)
[2024-03-26] MEDS: Lactobacillis Acidophilus 1 CAP PO (09:00)
[2024-03-26] MEDS: hydrALAZINE 50 MG Tablet PO (09:00)
[2024-03-26] MEDS: APIXABAN 5 MG TABLET PO (09:01)
[2024-03-26] MEDS: Menthol/Lanolin/Calamine/Znox 113 GM Tube 1 APPLIC TOPICAL (09:01)
[2024-03-26] MEDS: Carvedilol 25 MG Tablet PO (09:01)
[2024-03-26] MEDS: PARoxetine 10 MG Tablet PO (09:01)
[2024-03-26] MEDS: cloNIDine HCl 0.1 MG Tablet PO (09:01)
--- NOTE | 2024-03-26 10:35 | CASEMGMT ---
RN CM Face to Face with patient for initial transition planning/care coordination assessment. RN CM introduced self and role at [facility]. Patient sitting in chair, alert and oriented. Patient willing to participate in assessment and is able to answer all questions appropriately. Care providers, pharmacy, and demographics verified. PCP: [facility] Specialists: Ingrid, oncologist; Lakesha, Surgeon Preferred Pharmacy: [facility] Insurance: [facility], [employer] Prescription Benefit: yes Living Will/HPOA: yes, daughter Shauna Wong LNOK: daughter, son Living Arrangements: Patient lives alone in a first floor apartment with no steps to enter. Patient is independent at home. Transportation: self, children. Patient interested in resource when she may not be able to drive in the future, SW notified. DME/HHC: Patient states she has shower chair, walker, cane, rollator, and grab bars at home. Patient has been to [facility] in the past. [facility]. Patient wishes to discharge home, denies need for home health at this time. Patient states he has no further needs or concerns at this time. CM to follow for discharge planning needs that may arise. Disposition Plan: Patient to discharge home with family support and follow-up plans in place. Nancy COSTELLO, RN, CM
--- NOTE | 2024-03-26 10:52 | DCINST_ITS ---
Discharge Instructions Diet Discharge Diet: Low fat / Low cholesterol Activity Discharge Activity: Return to Normal Activity Dressing / Incision Call your doctor if you observe: Fever of 101 or Higher, Shortness of breath, Dizziness, Fainting spells, Swelling in the ankles, Chest pain and Increased palpitations (irregular heartbeat) Follow Up Care Test Results: Test results from this visit will be discussed in further detail at your follow- up appointment, if applicable. Discharge Plan Admission Admit Date/Time: 03/24/24 15:22 Attending Provider: Kenyon Joiner Primary Care Provider: Ever Kilgore Consulting Providers: Maria Isabel Glover Instructions Patient Instructions: Understanding Norovirus, ED Diarrhea, Viral (Adult), ED Diarrhea, Bacterial (Adult) Discharge Orders/Prescriptions Prescriptions: New clonidine HCl 0.1 mg Tablet 0.1 mg PO BID 30 Days Qty: 60 0RF Continued potassium chloride 10 MEQ tablet 10 meq PO BID multivitamin with folic acid [Thera] 1 TABLET tablet 1 tab PO DAILY apixaban 5 MG tablet 5 mg PO BID levothyroxine 75 mcg Tablet 75 mcg PO DAILY carvedilol 25 mg tablet 25 mg PO BID paroxetine HCl 10 mg tablet 10 mg PO DAILY gabapentin 400 mg capsule 400 mg PO TID hydralazine 50 mg tablet 50 mg PO BID biotin 1 tab PO DAILY Referrals / Follow Up: Ever Kilgore MD [Primary Care Provider] - Within 1 Week Disposition Disposition (needs filled in before D/C Order can be placed): Home, Self Care
--- NOTE | 2024-03-26 11:07 | CASEMGMT ---
Social Work SW provided transportation resources to pt per pt request with CM. No further social service needs anticipated at this time. IESHA Mendoza
[2024-03-26 12:15] VITALS: BP 108/49; PULSE 65; RESP 18; TEMP 35.9; O2SAT 96
--- NOTE | 2024-03-26 12:49 | DS.PCM_ITS ---
Providers Date of Admission: 03/24/24 Primary Care Physician: Dr. Ever Kilgore MD Reason For Visit: HTN URGENCY VS EMERGENCY Diagnosis Discharge Diagnosis (1) Hypertension: Status: Chronic Code(s): I10 - Essential (primary) hypertension (2) Morbid obesity with BMI of 40.0-44.9, adult: Status: Chronic Code(s): E66.01 - Morbid (severe) obesity due to excess calories; Z68.41 - Body mass index [BMI] 40.0-44.9, adult (3) Weakness: Status: Acute Code(s): R53.1 - Weakness Medications at Discharge Home Medications potassium chloride 10 mEq tablet,extended release(part/cryst) 10 meq PO BID supplement 06/07/18 multivitamin with folic acid 400 mcg tablet (Thera) 1 tab PO DAILY vitamin 08/01/18 apixaban 5 mg tablet 5 mg PO BID blood thinner 08/13/20 levothyroxine 75 mcg tablet 75 mcg PO DAILY thyroid 07/30/22 biotin 1 tab PO DAILY supplement 03/24/24 carvedilol 25 mg tablet 25 mg PO BID blood pressure 03/24/24 gabapentin 400 mg capsule 400 mg PO TID nerve pain 03/24/24 hydralazine 50 mg tablet 50 mg PO BID blood pressure 03/24/24 paroxetine HCl 10 mg tablet 10 mg PO DAILY mental health 03/24/24 clonidine HCl 0.1 mg tablet 0.1 mg PO BID 30 days #60 tabs 03/26/24 Hospital Course Operations None Procedures None Summary of Care Provided Minutes Spent on Discharge: 35 Hospital Course: Per HPI: AYAZ HERNANDEZ, is a 78-year-old female with history of hypertension, GERD, DVT, hypothyroidism morbid obesity, RLS who presented to [facility] ED 03/24/2024 due to diarrhea and general weakness. She has had diarrhea for 2 months and is awaiting outpatient surgery consult for colonoscopy schedule next week however she is becoming progressively weaker prompting her ED arrival today. In the ED lab workup fairly benign but patient had consistent significantly elevated blood pressure refractory to multiple rounds of IV medication prompting hospitalist to be contacted for admission for refractory hypertension and generalized weakness. Patient evaluated at bedside and reports the weakness worsening over the past couple of months, has about 3 episodes of diarrhea a day but has been thickening up somewhat. Does report she has had some headaches over the past 2 months and on Friday felt very suspicious in her house and unlike herself that is since resolved. Denies fevers or chills, no abdominal pain, sometimes feels like her eyes hurt but denies any overt changes in vision, has some chronic swelling in lower extremities. Hospital Course: 1. Generalized weakness with chronic diarrhea?78-year-old female presented to the hospital with continued diarrhea as well as worsening headache. She says that she has been having 4-5 bowel movements every day that were almost pure liquid for the last couple of months. Initially she would take Imodium which would make her constipated so then she would get a MiraLAX which would give her the diarrhea again. She denies any travel or sick contacts recently and the only thing she can remember was eating a salad in August that made her unwell very quickly. She states that she had seen her doctor and had stool studies done as an outpatient that showed an infectious etiology but she could not say what and are stool samples demonstrated norovirus and vibrio species. She is able to eat and states that her bowel movements have decreased to about twice a day and no longer immediately after she eats and they are not liquid. I discussed with her the possibility for discharge today she expressed understanding of the risk benefits of going home and would like to go home today. I do recommend that she follow-up with her PCP in 3 to 5 days. 2. Hypertensive urgency?blood pressures on admission were over 200 systolic. TSH and cortisol were unremarkable. She states that she has been taking her medications as indicated and she was started on clonidine point 1 mg p.o. twice daily which has helped control her blood pressures. Will continue with the clonidine on discharge as well as her other baseline blood pressure medications and I do recommend that she follow-up with her PCP in 3 to 5 days for further evaluation monitoring and medication adjustment. 3. Hypothyroidism, anxiety, depression, history of DVT are all chronic medical conditions which complicate her care. Her home medications were continued where appropriate. Weight / BMI Weight Weight: 232 lb 5.875 oz Body Mass Index (BMI) 42.5 ABG / Lab / Microbiology Data 03/26/24 06:22 03/26/24 06:22 Laboratory: Laboratory Results - last 24 hr 03/24/24 16:25: Vitamin B12 824, Vitamin D 25-Hydroxy 53.3, Cortisol 6.20 03/26/24 06:22: WBC 4.5, RBC 3.54 L, Hgb 11.1 L, Hct 34.8 L, MCV 98.3, MCH 31.4, MCHC 31.9 L, RDW Std Deviation 47.8 H, RDW Coeff of [place] 13.2, Plt Count 109 L, MPV 9.6, Immature Gran % (Auto) 0.200, Neut % (Auto) 59.5, Lymph % (Auto) 24.7, [place] % (Auto) 10.7 H, Eos % (Auto) 4.7, Baso % (Auto) 0.2, Absolute Neuts (auto) 2.7, Absolute Lymphs (auto) 1.11, Nucleated RBC % 0, Sodium 142, Potassium 3.5, Chloride 110 H, Carbon Dioxide 26.0, Anion Gap 6, BUN 12, Creatinine 0.67, Estim Creat Clear Calc 63.94, Est GFR (MDRD) Af Amer 108, Est GFR (MDRD) Non-Af 90, BUN/Creatinine Ratio 17.8, Glucose 111 H, Calcium 8.7, Magnesium 1.8 Microbiology: Microbiology 03/25/24 14:00 Stool Stool Lactoferrin - Final 03/25/24 14:00 Stool Enteric Bacteriology - Final Vibrio Species Norovirus 03/25/24 14:00 Stool Clostridioides difficile (PCR) - Final D/C Instructions Discharge Diet: Low fat / Low cholesterol Call your doctor if you observe: Fever of 101 or Higher, Shortness of breath, Dizziness, Fainting spells, Swelling in the ankles, Chest pain and Increased palpitations (irregular heartbeat) Meaningful Use Info Meaningful Use Meaningful Use Diagnoses (Choose all that apply): None applicable Ischemic Stroke Statin Dosing Therapy Reference: STATIN DOSE THERAPY REFERENCE: * Patients > 75 years receive moderate or high dose statin therapy. * Patients 75 years or YOUNGER should receive HIGH intensity statin dose unless contraindicated. You will be required to document reason for non-treatment if statin daily dose does not meet guidelines. HIGH DOSE STATIN THERAPY DAILY Atorvastatin > than or = to 40 mg Rosuvastatin > than or = to 20 mg Amlodipine + Atorvastatin > than or = to 2.5/40 mg Ezetimibe + Simvastatin 10/80 mg Simvastatin 80mg Discharge Plan Admission Admit Date/Time: 03/24/24 15:22 Attending Provider: Kenyon Joiner Primary Care Provider: Ever Kilgore Consulting Providers: Maria Isabel Glover Instructions Patient Instructions: Understanding Norovirus, ED Diarrhea, Viral (Adult), ED Diarrhea, Bacterial (Adult) Discharge Orders/Prescriptions Prescriptions: New clonidine HCl 0.1 mg Tablet 0.1 mg PO BID 30 Days Qty: 60 0RF Continued potassium chloride 10 MEQ tablet 10 meq PO BID multivitamin with folic acid [Thera] 1 TABLET tablet 1 tab PO DAILY apixaban 5 MG tablet 5 mg PO BID levothyroxine 75 mcg Tablet 75 mcg PO DAILY carvedilol 25 mg tablet 25 mg PO BID paroxetine HCl 10 mg tablet 10 mg PO DAILY gabapentin 400 mg capsule 400 mg PO TID hydralazine 50 mg tablet 50 mg PO BID biotin 1 tab PO DAILY Referrals / Follow Up: Ever Kilgore MD [Primary Care Provider] - 04/02/24 2:20 pm Disposition Disposition (needs filled in before D/C Order can be placed): Home, Self Care Charges/Coding Visit Charges Inpatient E&M: 20696 Disch Hosp >30min
== END 2024-03-26 13:53 | disposition home or self-care (01) | DRG 305 ==
LOC: ED 14:11 → PCU 14:20
PROVIDERS: Admitting Provider Internal Medicine; Emergency Provider Emergency Medicine; PCP Family Medicine; Visit Provider Family Medicine
DX: I16.0 Hypertensive urgency (principal); Z68.41 Body mass index [BMI] 40.0-44.9, adult; E03.9 Hypothyroidism, unspecified; E66.01 Morbid (severe) obesity due to excess calories; I10 Essential (primary) hypertension; F32.A Depression, unspecified; K52.9 Noninfective gastroenteritis and colitis, unspecified; K21.9 Gastro-esophageal reflux disease without esophagitis; F41.9 Anxiety disorder, unspecified; Z79.890 Hormone replacement therapy; Z86.718 Personal history of other venous thrombosis and embolism; Z79.01 Long term (current) use of anticoagulants; R53.1 Weakness
CPT/HCPCS: 36415; 70450; 74177; 80048; 80053; 80076; 81001; 82306; 82533; 82607; 82746; 83605; 83630; 83690; 83735; 84100; 84439; 84443; 85025; 87177; 87209; 87493; 87506; 97161; 97165; 99285; J7030; Q9967; A4216

== ENCOUNTER 2024-05-08 13:55 | Emergency (ER) | payer MEDICARE, OTHER, SELFPAY ==
[2024-05-08 13:55] VITALS: BP 112/60; PULSE 61; RESP 12; TEMP 36; O2SAT 94; BMI 43.6
--- NOTE | 2024-05-08 14:53 | CT_ITS ---
STUDY: CT BRAIN WITHOUT CONTRAST REASON FOR EXAM: Female, 78 years old. Head trauma on thinner RADIATION DOSAGE (If Supplied By Facility): CTDIvol = ( 44.99 ) mGy, DLP = ( 829.85 ) mGycm TECHNIQUE: Transaxial CT imaging of the brain was performed without administration of intravenous contrast material. Individualized dose optimization techniques were used for this CT. COMPARISON: March 24, 2024 FINDINGS: Normal soft tissue structures. Normal calvarium. There is mild cerebral atrophy with widening of the extra-axial spaces and ventricular dilatation. There are areas of decreased attenuation within the white matter tracts of the supratentorial brain, consistent with microvascular disease changes. Normal basal ganglia and thalami. Normal brainstem. Normal cerebellum. There is no intracranial hemorrhage. There are no findings of an acute ischemic infarction. Normal visualized paranasal sinuses. CT/Brain/Head without Contrast IMPRESSION: Chronic involutional changes of the brain. Electronically Signed: Rosales Peralta MD at 15:48 EDT ,
--- NOTE | 2024-05-08 14:53 | EKG12_ITS ---
Test Reason : SYCOPE Blood Pressure : / mmHG Vent. Rate : 060 BPM Atrial Rate : 060 BPM P-R Int : 166 ms QRS Dur : 086 ms QT Int : 450 ms P-R-T Axes : 039 009 056 degrees QTc Int : 450 ms Normal sinus rhythm Normal ECG Confirmed by DREW ROMERO, STEPHEN ([id number]), editor book TIMA WICK ([id number]) on 05/14/2024 6:15:23 AM Referred By: Confirmed By:VICTORINO RUSSELL MD
--- NOTE | 2024-05-08 14:54 | EDS_ITS ---
HPI History of Present Illness Chief Complaint: Syncope Informant: patient and family Onset/Context/Timing Onset: Today Context: Sudden Onset Current Severity: Mild Maximum Severity: Mild Narrative Narrative: 78-year-old female with history 900 lymphoma, hypertension and on the blood thinner Eliquis. Was admitted to the hospital about a month ago for a fungal infection in her intestines. States she has had chronic dizziness for months. She uses a walker at home. She lives alone. Today she called her daughter said she had fallen did not know if she lost consciousness. Since she was going into her room and went down. Did hit her left forehead. And her knees. Daughter states she has been sleeping more recently. No fever or vomiting. No dysuria. Denies any severe headaches. Prior similar symptoms: Yes Recent Illness/Hospitalization: Yes [facility] Medical History DVT (deep venous thrombosis) Post-menopausal Dyspnea History of stress test Ovarian tumor Anticoagulant long-term use Non Hodgkin's lymphoma Dehiscence of surgical wound GERD (gastroesophageal reflux disease) Restless leg syndrome Peripheral neuropathy Osteoarthritis Hypertension Morbid obesity with BMI of 40.0-44.9, adult Home Medications ?Medication ?Instructions ?Recorded ?Last Taken ?Type potassium chloride 10 mEq 10 meq PO BID supplement 06/07/18 03/24/24 History tablet,extended release(part/cryst) multivitamin with folic acid 400 1 tab PO DAILY vitamin 08/01/18 03/24/24 History mcg tablet (Thera) apixaban 5 mg tablet 5 mg PO BID blood thinner 08/13/20 03/24/24 History levothyroxine 75 mcg tablet 75 mcg PO DAILY thyroid 07/30/22 03/24/24 History biotin 1 tab PO DAILY supplement 03/24/24 Unknown History carvedilol 25 mg tablet 25 mg PO BID blood pressure 03/24/24 03/24/24 History gabapentin 400 mg capsule 400 mg PO TID nerve pain 03/24/24 03/24/24 History hydralazine 50 mg tablet 50 mg PO BID blood pressure 03/24/24 03/24/24 History paroxetine HCl 10 mg tablet 10 mg PO DAILY mental health 03/24/24 03/24/24 History clonidine HCl 0.1 mg tablet 0.1 mg PO BID 30 days #60 tabs 07/05/24 Unknown Rx Allergy/AdvReac Type Severity Reaction Status Date / Time COVID-19 vaccine, mRNA, Allergy Anaphylaxis Verified 03/24/24 09:30 [id number], erythromycin base Allergy Rash Verified 03/24/24 09:30 (Erythromycin Base) lisinopril Allergy Swelling Verified 03/24/24 09:30 venom-wasp (wasp) Allergy NEEDS Verified 03/24/24 09:30 FOLLOW-UP amlodipine AdvReac Swelling Verified 03/24/24 09:30 latex AdvReac Swelling Verified 03/24/24 09:30 Family History Mother Hypertension Surgical History S/P laparoscopic cholecystectomy S/P hysterectomy H/O laminectomy History of partial nephrectomy History of tonsillectomy History of total knee arthroplasty History of total abdominal hysterectomy Social History Smoking Status: Never smoker ROS ROS ED ROS Narrative Lightheadedness. No recent vomiting, fever nor shortness of breath. Constitutional Constitutional ED: Denies chills or fever(s) Eyes Eyes: Denies blurry vision ENT ENT ED: Denies ear pain Respiratory/Chest Respiratory/Chest: Denies cough or dyspnea Gastrointestinal Gastrointestinal: Denies abdominal pain, nausea or vomiting Genitourinary Genitourinary ED: Denies dysuria or hematuria Musculoskeletal Musculoskeletal: Denies arthralgias Integumentary Denies abscess Neurologic Neurologic: Denies headache(s) Psychiatric Psychiatric: Denies anxiety Endocrine Endocrinology: Denies cold intolerance Hematologic/Lymphatic Hematologic/Lymphatic: Reports none Allergic/Immunologic Allergic/Immunologic ED: Denies mouth swelling, tongue swelling or urticaria EXAM Physical Exam Narrative Exam Narrative: 78-year-old female sitting upright in bed. Vital signs are stable afebrile. Pulse ox 94% on room air no hypoxia. H EENT exam pupils round react light. Dry mucous membranes. She is small contusion left forehead. No sign hematoma. No laceration. Neck nontender. Trachea midline. Lungs clear to auscultation bilaterally. Heart regular rate and rhythm rate about 60 no murmur. Chest wall ribs nontender. Abdomen soft nontender. No bruising. Pelvic girdle intact. She has bilateral knee surgeries with well-healed surgical scars. She is able to flex descent of both hips knees and ankles. No deformity or tenderness. Upper extremities are nontender with normal range of motion. 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 Back is nontender. She is awake and alert. Answering questions and following commands. Acting appropriately. Son and daughter in the room. Const Vital Signs: 05/08/24 13:55 05/08/24 14:02 05/08/24 14:03 Temperature 96.8 F L Temperature Source Temporal Pulse Rate 61 Respiratory Rate 12 Respiratory Effort Normal Normal Non-Labored Respiratory Pattern Normal Blood Pressure 112/60 Blood Pressure Mean 77 Pulse Ox 94 Oxygen Delivery Method Room Air 05/08/24 14:53 05/08/24 15:08 05/08/24 17:00 Temperature Temperature Source Pulse Rate 60 63 Respiratory Rate 18 18 Respiratory Effort Respiratory Pattern Blood Pressure 150/84 H 160/81 H Blood Pressure Mean 106 107 Pulse Ox 94 96 Oxygen Delivery Method Room Air Room Air Room Air Positive well nourished and well developed; Negative for cachectic, contractures or unkempt General Appearance ED: well developed and NAD; Negative for unkempt, cachectic, contractures, cyanotic or diaphoretic Nutritional Appearance: Negative for cachectic HEENT Reports dry mucous membranes; Denies moist mucous membranes Negative for trauma or tenderness Mouth ED: Yes dry mucous membranes Mouth: dry mucous membranes Eyes PERRL and EOMs intact bilaterally General Eye ED: Negative for pale conjunctiva Neck no lymphadenopathy, supple and no JVD General: Negative for tenderness Chest Wall inspection of chest normal and palpation of chest normal Chest: Negative for other Resp normal respiratory effort and clear to auscultation bilaterally Auscultation: Negative for rales, rhonchi, wheezes or diminished lung sounds Cardio regular rate, regular rhythm, S1 normal heart sound, S2 normal heart sound and no murmurs Rhythm: Negative for abnormal rhythm GI normal to inspection, nondistended, normoactive bowel sounds, non-tender, non- distended and no masses Palpation: soft; Negative for tender, guarding or rebound tenderness present Back/Spine no CVA tenderness General Back: Negative for CVA tenderness Cervical Spine: Negative for cervical spine tenderness Thoracic Spine / Upper Back: Negative for thoracic spinal tenderness or paraspinal muscle tenderness Lumbar Spine / Lower Back: Negative for lumbar spinal tenderness Extremity normal to inspection General Extremety ED: Negative for edema or tenderness General Extremity: Negative for edema Neuro oriented x3 and CN's II-XII intact bilaterally Sensorium / Orientation: alert; Negative for orientation impaired, lethargic or stuporous Motor Exam: strength 5/5 throughout Psych mental status grossly normal Appearance: Negative for unkempt Attitude: No agitated Mood & Affect: Negative for depressed, anxious or tearful Skin no rashes or lesions noted and no wounds Lesions: No lesion noted Rashes: No rashes noted Trauma: Negative for abrasion MDM MDM MDM Narrative Medical decision making narrative: 78-year-old female fell at home normally uses a walker. Has had chronic dizziness. She is on a blood thinner did hit her left forehead. CAT scan of her brain will be obtained. Along with screening labs. Repeat exam at 5:27 PM patient doing well. Resting comfortably. I went over the test results with her and her family. Organ to get the patient up and walk her with a walker she does well should be discharged to home. Her and family are comfortable to her being discharged home. Patient ambulated well with a walker. She will be discharged home. Patient did have a bruise on her left long finger. She had normal range of motion and no bony deformity. She did not want it x-rayed. History & Record Review Discussion w/independent historian: Patient Additional record(s) reviewed:: Prior inpatient record, Prior outpatient record, Prior ED visit and Prior labs Lab Data Attestation: I reviewed the patient's lab results. Lab results narrative: CBC shows a White count 6. H&H 12.8 and 39. Platelets 133. Chemistry showed gap of 4. And creatinine 12 and 1. Glucose 122. Troponin 7. Chest x-ray unremarkable. CT of the brain no acute bleed. Labs: Laboratory Results - last 24 hr 05/08/24 14:06 WBC 6.9 RBC 4.09 L Hgb 12.8 Hct 39.7 MCV 97.1 MCH 31.3 MCHC 32.2 RDW Std Deviation 45.9 H RDW Coeff of [place] 12.8 Plt Count 133 L MPV 10.7 Immature Gran % (Auto) 0.300 Neut % (Auto) 74.4 H Lymph % (Auto) 15.7 L [place] % (Auto) 7.3 Eos % (Auto) 2.2 Baso % (Auto) 0.1 Absolute Neuts (auto) 5.2 Absolute Lymphs (auto) 1.09 Nucleated RBC % 0 Sodium 139 Potassium 3.8 Chloride 106 Carbon Dioxide 29.0 Anion Gap 4 L BUN 12 Creatinine 1.06 H Estim Creat Clear Calc 49.01 Est GFR (MDRD) Af Amer 64 Est GFR (MDRD) Non-Af 53 L BUN/Creatinine Ratio 11.3 Glucose 122 H Calcium 8.8 Troponin I High Sens 7 Radiography Chest X-Ray - ED: 1 View, Read by ED Physician, Read by Radiologist, Heart, Lungs, Mediastinum, Bony Structures, No Acute Disease and Chronic Changes Diagnostic Testing: Clinical Impression(s) from Imaging Studies Brain CT 05/08/24 14:53 IMPRESSION: Chronic involutional changes of the brain. Electronically Signed: Rosales Peralta MD at 15:48 EDT , Chest X-Ray 05/08/24 15:18 IMPRESSION: Degenerative changes, as described above. No demonstrated acute cardiopulmonary process. Electronically Signed: Rosales Peralta MD at 15:56 EDT , Chest x-ray, portable, single view shows no acute abnormality. Interpreted by myself and radiologist. Rhythm Strip Rhythm Strip: Sinus Rhythm Rate: 60 Ectopy: None EKG Initial EKG: Attestation: I personally reviewed and interpreted this EKG as follows: Interpretation: Sinus Rhythm Comments: Normal sinus rhythm rate of 60 no acute signs of VT or ischemia. No dysrhythmia. Discharge Plan Triage Chief Complaint: Syncope ED Provider: Evans Jones Dx/Rx/DC Orders Clinical Impression: Fall Instructions: ED Fall with Uncertain Cause Prescriptions: No Action potassium chloride 10 MEQ tablet 10 meq PO BID multivitamin with folic acid [Thera] 1 TABLET tablet 1 tab PO DAILY apixaban 5 MG tablet 5 mg PO BID levothyroxine 75 mcg Tablet 75 mcg PO DAILY carvedilol 25 mg tablet 25 mg PO BID paroxetine HCl 10 mg tablet 10 mg PO DAILY gabapentin 400 mg capsule 400 mg PO TID hydralazine 50 mg tablet 50 mg PO BID biotin 1 tab PO DAILY clonidine HCl 0.1 mg Tablet 0.1 mg PO BID 30 Days Qty: 60 0RF Primary Care Provider: Ever Kilgore Referrals: Ever Kilgore MD [Primary Care Provider] - As Needed Activity Restrictions/Additional Instructions: Ice all sore areas. Tylenol for pain. Follow-up with any problems. Return if feeling worse. Print Language: Cymraes Disposition Disposition: Home, Self Care
[2024-05-08 15:08] VITALS: BP 150/84; PULSE 60; RESP 18; O2SAT 94
[2024-05-08 15:08] LABS: Absolute Lymphocyte Count 1.09 X10^3/uL (0.83-4.51); Absolute Neutrophil Count 5.2 X10^3/uL (2.0-7.7); Basophil# 0.01 X10^3/uL; Basophil% 0.1 % (0-1); Eosinophil# 0.15 X10^3/uL; Eosinophils% 2.2 % (0-5); Hematocrit 39.7 % (37-47); Hemoglobin 12.8 g/dL (12.0-15.0); Lymphocyte # 1.09 X10^3/ul (0.83-4.51); Lymphocyte % 15.7 % (19-41); Mean Corp Hgb Conc 32.2 g/dL (32-36); Mean Corpuscular Hgb 31.3 pg (27.0-32.0); Mean Corpuscular Volume 97.1 fL (81-99); Mean Platelet Vol. 10.7 fl (6.2-12.0); Monocyte# 0.51 X10^3/uL; Monocyte% 7.3 % (0-10); NRBC Flagged by Analyzer 0 % (0-5); Neutrophil # 5.16 X10^3/uL (2.7-7.7); Neutrophil % 74.4 % (47-70); Platelet Count 133 K/mm3 (150-450); RBC Distribution Width CV 12.8 % (11.6-14.6); RBC Distribution Width SD 45.9 fl (35.1-43.9); Red Blood Count 4.09 M/mm3 (4.2-5.4); White Blood Count 6.9 K/mm3 (4.4-11.0)
--- NOTE | 2024-05-08 15:18 | RAD_ITS ---
STUDY: X-RAY CHEST REASON FOR EXAM: Female, 78 years old. Chest pain TECHNIQUE: Single AP portable view of the chest. COMPARISON: July 30, 2022 FINDINGS: There are monitoring devices. The lungs are clear and expanded. There is stable right midlung granuloma. There is no demonstrated pleural abnormality. Normal size heart. Normal mediastinum and favian. Normal visualized pulmonary arteries. There is atherosclerotic calcification of the aortic arch. There is demineralization of the osseous structures. Normal visualized ribs, clavicles, and shoulders. There is no demonstrated abnormality of the visualized soft tissue structures of the upper abdomen. RAD/Chest 1 View (Portable) IMPRESSION: Degenerative changes, as described above. No demonstrated acute cardiopulmonary process. Electronically Signed: Rosales Peralta MD at 15:56 EDT ,
[2024-05-08 15:29] LABS: Anion Gap 4 (5-15); BUN 12 mg/dL (7-18); BUN/Creat Ratio 11.3 RATIO (10-20); Calcium,Total 8.8 mg/dL (8.5-10.1); Chloride 106 mmol/L (98-107); Creatinine, Serum 1.06 mg/dL (0.55-1.02); EST Glomerular Filtration Rate 53 mL/min (>60); Est Glom Filt Rate - Afr Amer 64 mL/min (>60); Estimated Creatinine Clearance 49.01 ml/min; Glucose 122 mg/dL (74-106); Potassium 3.8 mmol/L (3.5-5.1); Sodium Level 139 mmol/L (136-145); Troponin-I HS 7 pg/mL (3.0-54.0)
[2024-05-08 17:00] VITALS: BP 160/81; PULSE 63; RESP 18; O2SAT 96
[2024-05-08 18:00] LABS: Mucous, Urine 0 SEEN /hpf (<or=2+); Red Blood Cells-Urine 0 SEEN /hpf (0-5); Squamous Epithelial Cells - UA 0 SEEN /hpf (5-10)
[2024-05-08 18:01] LABS: Color, Urine Yellow (Yellow); Glucose, Dipstick Normal (Normal); Ketone-Dipstick Negative (Negative); Leukocyte Esterase-Dipstick 500 /ul (Negative); Nitrite-Dipstick Negative (Negative); Occult Blood-Urine 10 /ul (Negative); Protein-Dipstick 15 mg/dl (Negative); Specific Gravity, Urine 1.005 (1.002-1.030); Urine Bilirubin Dipstick Negative (Negative); Urine Clarity Clear (Clear); Urine Urobilinogen Normal (Normal)
[2024-05-08 18:11] VITALS: BP 155/70; PULSE 60; RESP 18; TEMP 36.2; O2SAT 97
[2024-05-08 18:21] LABS: Bacteria 1+ /hpf (None Seen); White Blood Cells 5-10 SEEN /hpf (0-5)
== END 2024-05-08 18:21 | disposition home or self-care (01) ==
PROVIDERS: Emergency Provider Emergency Medicine; PCP Family Medicine; Visit Provider Emergency Medicine
DX: R55 Syncope and collapse (principal); C85.90 Non-Hodgkin lymphoma, unspecified, unspecified site; I10 Essential (primary) hypertension; Z79.01 Long term (current) use of anticoagulants; W18.30XA Fall on same level, unspecified, initial encounter; Z90.49 Acquired absence of other specified parts of digestive tract; Z90.710 Acquired absence of both cervix and uterus; Z90.5 Acquired absence of kidney; Z96.659 Presence of unspecified artificial knee joint
CPT/HCPCS: 70450; 71045; 80048; 81001; 84484; 85025; 93005; 96360; 99284; J7030; A4216

== ENCOUNTER 2024-07-04 04:06 | Emergency (ER) | payer MEDICARE, OTHER, SELFPAY ==
[2024-07-04 04:07] VITALS: BP 235/92; PULSE 71; RESP 16; TEMP 36.2; O2SAT 98; BMI 43.0
--- NOTE | 2024-07-04 04:33 | EKG12_ITS ---
Test Reason : HTN Blood Pressure : / mmHG Vent. Rate : 072 BPM Atrial Rate : 072 BPM P-R Int : 092 ms QRS Dur : 112 ms QT Int : 422 ms P-R-T Axes : 068 006 041 degrees QTc Int : 462 ms Sinus rhythm with short ME Left ventricular hypertrophy with repolarization abnormality ( R in aVL , [place] product ) Confirmed by Sergey Red ([id number]), food editor DARIEN SALMERON ([id number]) on 07/05/2024 9:40:12 AM Referred By: TOAN Confirmed By:Sergey Red
[2024-07-04] MEDS: cloNIDine HCl 0.1 MG Tablet PO (04:40)
[2024-07-04] MEDS: hydrALAZINE 20 MG/ML Vial 10 MG IV ×2 (04:41→05:19)
[2024-07-04 04:43] LABS: Absolute Lymphocyte Count 1.43 X10^3/uL (0.83-4.51); Absolute Neutrophil Count 7.3 X10^3/uL (2.0-7.7); Basophil# 0.02 X10^3/uL; Basophil% 0.2 % (0-1); Eosinophil# 0.01 X10^3/uL; Eosinophils% 0.1 % (0-5); Hemoglobin 12.6 g/dL (12.0-15.0); Lymphocyte # 1.43 X10^3/ul (0.83-4.51); Lymphocyte % 15.1 % (19-41); Mean Corp Hgb Conc 31.5 g/dL (32-36); Mean Corpuscular Hgb 30.5 pg (27.0-32.0); Mean Corpuscular Volume 96.9 fL (81-99); Monocyte# 0.68 X10^3/uL; Monocyte% 7.2 % (0-10); NRBC Flagged by Analyzer 0 % (0-5); Neutrophil # 7.25 X10^3/uL (2.7-7.7); Neutrophil % 76.7 % (47-70); Platelet Count 149 K/mm3 (150-450); RBC Distribution Width CV 13.1 % (11.6-14.6); RBC Distribution Width SD 46.4 fl (35.1-43.9); Red Blood Count 4.13 M/mm3 (4.2-5.4); White Blood Count 9.5 K/mm3 (4.4-11.0)
--- NOTE | 2024-07-04 04:50 | RAD_ITS ---
EXAM: XR CHEST, 2 VIEWS CLINICAL INDICATION: cough TECHNIQUE: Frontal and lateral views of the chest. COMPARISON: 05/08/2024. FINDINGS: LUNGS AND PLEURAL SPACES: Unremarkable. No consolidation or edema. No pneumothorax. No effusion. HEART: Unremarkable. Cardiac silhouette not enlarged. MEDIASTINUM: Central airways and mediastinal contour are unremarkable. BONES/JOINTS: Unremarkable. No acute fracture. SOFT TISSUES: Unremarkable. RAD/Chest PA and Lateral IMPRESSION: No acute cardiopulmonary abnormality. Electronically Signed: Sergey Ruelas MD at 5:17 EDT ,
[2024-07-04 05:01] LABS: Anion Gap 6 (5-15); BUN 15 mg/dL (7-18); BUN/Creat Ratio 18.3 RATIO (10-20); Calcium,Total 9.9 mg/dL (8.5-10.1); Chloride 107 mmol/L (98-107); Creatinine, Serum 0.82 mg/dL (0.55-1.02); EST Glomerular Filtration Rate 71 mL/min (>60); Est Glom Filt Rate - Afr Amer 86 mL/min (>60); Glucose 119 mg/dL (74-106); Potassium 3.6 mmol/L (3.5-5.1); Sodium Level 141 mmol/L (136-145); Troponin-I HS 6 pg/mL (3.0-54.0)
[2024-07-04 05:11] VITALS: BP 194/88; PULSE 74; RESP 14; O2SAT 98
--- NOTE | 2024-07-04 05:13 | CT_ITS ---
EXAM: CT HEAD WITHOUT INTRAVENOUS CONTRAST CLINICAL INDICATION: headache TECHNIQUE: Multiple axial images were obtained of the head without intravenous contrast. This CT exam was performed using one or more of the following dose reduction techniques: automated exposure control, adjustment of the mA and/or kV according to patient size, and/or use of iterative reconstruction technique. RADIATION DOSE: CTDIvol = 44.99 mGy, DLP = 812.98 mGy-cm COMPARISON: 05/08/2024. FINDINGS: BRAIN AND EXTRA-AXIAL SPACES: Mild generalized atrophy. Mild low density bilaterally in the deep white matter. No intra- or extra-axial hemorrhage. No evidence of acute infarct. No intracranial mass or mass effect. There is preservation of the goff/white matter interface. Posterior fossa structures are unremarkable. No hydrocephalus. Basal cisterns are patent. BONES/JOINTS: Unremarkable. No discrete lytic or blastic abnormalities. SINUSES: Mucosal thickening left maxillary sinus. MASTOID AIR CELLS: Unremarkable. Clear. ORBITS: Visualized globes, extraocular muscles, optic nerves and retrobulbar fat appear unremarkable. CT/Brain/Head without Contrast IMPRESSION: 1. Mucosal thickening left maxillary sinus. 2. Mild generalized atrophy. Mild low density bilaterally in the deep white matter. This likely represents chronic small vessel ischemic changes in the deep white matter. Electronically Signed: Sergey Ruelas MD at 5:43 EDT ,
[2024-07-04 05:49] VITALS: BP 161/79; PULSE 68; RESP 14; O2SAT 98
--- NOTE | 2024-07-04 06:10 | EDS_ITS ---
HPI History of Present Illness Chief Complaint: Hypertension Informant: patient and family Narrative Narrative: Patient is a 78-year-old female with past medical history of restless leg syndrome sleep apnea hypertension and GERD. She states that she has been taking her blood pressure throughout the day on Friday and it has been elevated despite taking her blood pressure medication. She states she took an extra dose of her blood pressure medication at her evening dose secondary to the hypertension. However she has not been able to sleep throughout the night and has been checking her blood pressure and has remained high and therefore she comes in for evaluation Patient denies any excessive stimulant use or illicit drug use. She does state that she was recently placed on prednisone secondary to sinus congestion and pressure and took her first dose on Friday [facility] Medical History DVT (deep venous thrombosis) Post-menopausal Dyspnea History of stress test Ovarian tumor Anticoagulant long-term use Non Hodgkin's lymphoma Dehiscence of surgical wound GERD (gastroesophageal reflux disease) Restless leg syndrome Peripheral neuropathy Osteoarthritis Hypertension Morbid obesity with BMI of 40.0-44.9, adult Home Medications ?Medication ?Instructions ?Recorded ?Last Taken ?Type potassium chloride 10 mEq 10 meq PO BID supplement 06/07/18 03/24/24 History tablet,extended release(part/cryst) multivitamin with folic acid 400 1 tab PO DAILY vitamin 08/01/18 03/24/24 History mcg tablet (Thera) apixaban 5 mg tablet 5 mg PO BID blood thinner 08/13/20 03/24/24 History levothyroxine 75 mcg tablet 75 mcg PO DAILY thyroid 07/30/22 03/24/24 History carvedilol 25 mg tablet 25 mg PO BID blood pressure 03/24/24 03/24/24 History gabapentin 400 mg capsule 400 mg PO TID nerve pain 03/24/24 03/24/24 History hydralazine 50 mg tablet 50 mg PO BID blood pressure 03/24/24 03/24/24 History paroxetine HCl 10 mg tablet 10 mg PO DAILY mental health 03/24/24 03/24/24 History clonidine HCl 0.1 mg tablet 0.1 mg PO BID 30 days #60 tabs 03/26/24 Unknown Rx amoxicillin 875 mg-potassium 1 tab PO BID 07/04/24 Unknown History clavulanate 125 mg tablet losartan 100 mg tablet 100 mg PO DAILY 07/04/24 Unknown History meclizine 25 mg tablet 25 mg PO TID 07/04/24 Unknown History omeprazole 20 mg capsule,delayed 20 mg PO DAILY 07/04/24 Unknown History release prednisone 10 mg tablet mg PO 07/04/24 Unknown History Allergy/AdvReac Type Severity Reaction Status Date / Time COVID-19 vaccine, mRNA, Allergy Anaphylaxis Verified 07/04/24 04:13 [id number], erythromycin base Allergy Rash Verified 07/04/24 04:13 (Erythromycin Base) lisinopril Allergy Swelling Verified 07/04/24 04:13 venom-wasp (wasp) Allergy NEEDS Verified 07/04/24 04:13 FOLLOW-UP amlodipine AdvReac Swelling Verified 07/04/24 04:13 latex AdvReac Swelling Verified 07/04/24 04:13 Family History Mother Hypertension Surgical History S/P laparoscopic cholecystectomy S/P hysterectomy H/O laminectomy History of partial nephrectomy History of tonsillectomy History of total knee arthroplasty History of total abdominal hysterectomy Social History Smoking Status: Never smoker ROS ROS ED Constitutional Constitutional ED: Denies chills or fever(s) ENT ENT ED: Denies sore throat Cardiovascular Cardiovascular: Denies chest pain Respiratory/Chest Respiratory/Chest: Denies cough or dyspnea Gastrointestinal Gastrointestinal: Denies abdominal pain, diarrhea, nausea or vomiting Genitourinary Genitourinary ED: Denies dysuria Musculoskeletal Musculoskeletal: Denies myalgias Integumentary Denies rash Neurologic Neurologic: Denies headache(s) Hematologic/Lymphatic Hematologic/Lymphatic: Denies easy bleeding or easy bruising EXAM Physical Exam Const Vital Signs: 07/04/24 04:07 07/04/24 05:11 07/04/24 05:49 Temperature 97.1 F L Temperature Source Oral Pulse Rate 71 74 68 Respiratory Rate 16 14 14 Blood Pressure 235/92 H 194/88 H 161/79 H Blood Pressure Mean 139 123 106 Pulse Ox 98 98 98 Oxygen Delivery Method Room Air Room Air Room Air 07/04/24 06:20 Temperature 97.9 F Temperature Source Pulse Rate 68 Respiratory Rate 14 Blood Pressure 151/69 H Blood Pressure Mean 96 Pulse Ox 97 Oxygen Delivery Method Positive well nourished, well developed and obese General Appearance ED: well developed; Negative for pallor Nutritional Appearance: obese HEENT HEENT Narrative: Cobblestoning is noted within the posterior pharynx consistent with sinus drainage without airway edema or compromise No secondary findings in the posterior pharynx to suggest infection Eyes PERRL and EOMs intact bilaterally General Eye ED: Negative for scleral icterus Neck supple Neck Narrative: No nuchal rigidity or meningeal signs Chest Wall palpation of chest normal Resp normal respiratory effort Resp Narrative: Breath sounds are diminished throughout with faint rhonchi in the bilateral lower lobes without nasal flaring retractions tachypnea stridor or accessory muscle use Cardio regular rate and regular rhythm Rate: other Other Details: Heart is regular rate and rhythm Radial and carotid pulses are equal and symmetric No carotid bruit noted GI normal to inspection, nondistended, normoactive bowel sounds, non-tender, non- distended and no masses GI Narrative: No voluntary guarding or rigidity or pulsatile mass Auscultation: normoactive bowel sounds Palpation: soft Extremity normal to inspection Neuro oriented x3, CN's II-XII intact bilaterally and no sensory deficits noted Neuro Narrative: Cranial nerves II through XII are grossly intact without focal neurologic deficit No pronator drift no dysmetria no truncal ataxia NIH stroke scale score of 0 Sensorium / Orientation: alert Motor Exam: strength 5/5 throughout Psych mental status grossly normal Skin no rashes or lesions noted General Skin Exam: Negative for jaundice or pallor MDM MDM MDM Narrative Medical decision making narrative: Patient arrived to the ER hypertensive at approximately 240/90. She states that her blood pressure normally runs at approximately 150/80 and she states she has been taking her medications as directed. She denies any excessive stimulant use or illicit drug use. At this time she endorses a headache but denies any trauma. Temperature diagnosis is for accelerated hypertension versus hypertensive emergency as there is potential for acute coronary syndrome or acute kidney injury or hemorrhagic stroke. Secondary to this basic labs with a CT of the brain was obtained. EKG revealed sinus rhythm without ischemic changes and this correlates with troponin of 6 going against ACS. Creatinine is normal at 0.[address] of the brain revealed no acute findings and her neurologic exam was normal with a stroke scale score of 0 and going against hypertensive encephalopathy. As she has had mild congestion and cough there is concern for COVID so a chest x-ray was obtained as well as a viral swab. Viral swab and x-ray revealed no acute findings. Patient did endorse that she recently started prednisone which is most likely the cause of her accelerated hypertension. After receiving oral clonidine and IV hydralazine the blood pressure improved approximately 150 which is greater than the 25% which is typically at goal in the ER. On reevaluation she remains awake alert and oriented with no neurologic findings. Therefore as there is been no signs of hypertension emergency/endorgan damage and her blood pressure is now improved there is no need for admission or further workup and she is otherwise safe for discharge History & Record Review Discussion w/independent historian: Patient and Family Lab Data Attestation: I reviewed the patient's lab results. Labs: Laboratory Results - last 24 hr 07/04/24 04:25 WBC 9.5 RBC 4.13 L Hgb 12.6 Hct 40.0 MCV 96.9 MCH 30.5 MCHC 31.5 L RDW Std Deviation 46.4 H RDW Coeff of [place] 13.1 Plt Count 149 L MPV 10.0 Immature Gran % (Auto) 0.700 Neut % (Auto) 76.7 H Lymph % (Auto) 15.1 L [place] % (Auto) 7.2 Eos % (Auto) 0.1 Baso % (Auto) 0.2 Absolute Neuts (auto) 7.3 Absolute Lymphs (auto) 1.43 Nucleated RBC % 0 Sodium 141 Potassium 3.6 Chloride 107 Carbon Dioxide 28.0 Anion Gap 6 BUN 15 Creatinine 0.82 Estim Creat Clear Calc 62.80 Est GFR (MDRD) Af Amer 86 Est GFR (MDRD) Non-Af 71 BUN/Creatinine Ratio 18.3 Glucose 119 H Calcium 9.9 Troponin I High Sens 6 Radiography Diagnostic Testing: Clinical Impression(s) from Imaging Studies Chest X-Ray 07/04/24 04:50 IMPRESSION: No acute cardiopulmonary abnormality. Electronically Signed: Sergey Ruelas MD at 5:17 EDT , Brain CT 07/04/24 05:13 IMPRESSION: 1. Mucosal thickening left maxillary sinus. 2. Mild generalized atrophy. Mild low density bilaterally in the deep white matter. This likely represents chronic small vessel ischemic changes in the deep white matter. Electronically Signed: Sergey Ruelas MD at 5:43 EDT , Chest x-ray as interpreted by the emergency medicine physician reveals no acute infiltrate pneumothorax or pleural effusion Discharge Plan Triage Chief Complaint: Hypertension ED Provider: Marcell Gutiérrez Dx/Rx/DC Orders Clinical Impression: Accelerated hypertension, GERD (gastroesophageal reflux disease), CHRISTIANA (obstructive sleep apnea), Restless leg syndrome Instructions: ED Hypertension, Established Prescriptions: No Action potassium chloride 10 MEQ tablet 10 meq PO BID multivitamin with folic acid [Thera] 1 TABLET tablet 1 tab PO DAILY apixaban 5 MG tablet 5 mg PO BID levothyroxine 75 mcg Tablet 75 mcg PO DAILY carvedilol 25 mg tablet 25 mg PO BID paroxetine HCl 10 mg tablet 10 mg PO DAILY gabapentin 400 mg capsule 400 mg PO TID hydralazine 50 mg tablet 50 mg PO BID clonidine HCl 0.1 mg Tablet 0.1 mg PO BID 30 Days Qty: 60 0RF omeprazole 20 mg capsule,delayed release(DR/EC) 20 mg PO DAILY meclizine 25 mg tablet 25 mg PO TID prednisone 10 mg tablet PO losartan 100 mg tablet 100 mg PO DAILY amoxicillin-pot clavulanate 875-125 mg tablet 1 tab PO BID Primary Care Provider: Ever Kilgore Referrals: Ever Kilgore MD [Primary Care Provider] - Activity Restrictions/Additional Instructions: Your workup today showed no brain bleed heart damage or kidney damage and this indicates that your blood pressure spiking is most likely related to the pred nisone which you recently started on. Please hold your prednisone today and take your blood pressure medications as directed by your doctor. Reach out to your doctor tomorrow to discuss whether they want you to keep taking the prednisone but adjust blood pressure medication or remain off of it secondary to the accelerated hypertension. Return to the ER should you have any further concerns Print Language: Kyrgyz Disposition Disposition: Home, Self Care Discharge Date/Time: 07/04/24 06:21
[2024-07-04 06:20] VITALS: BP 151/69; PULSE 68; RESP 14; TEMP 36.6; O2SAT 97
== END 2024-07-04 06:21 | disposition home or self-care (01) ==
PROVIDERS: Emergency Provider Emergency Medicine; PCP Family Medicine; Visit Provider Emergency Medicine
DX: I10 Essential (primary) hypertension (principal); K21.9 Gastro-esophageal reflux disease without esophagitis; G25.81 Restless legs syndrome; G47.33 Obstructive sleep apnea (adult) (pediatric); E66.9 Obesity, unspecified; Z79.01 Long term (current) use of anticoagulants; Z79.899 Other long term (current) drug therapy; Z86.718 Personal history of other venous thrombosis and embolism
CPT/HCPCS: 70450; 71046; 80048; 84484; 85025; 87631; 93005; 96374; 96376; 99283; A4216

== ENCOUNTER 2024-11-06 13:40 | Emergency (ER) | payer MEDICARE, OTHER, SELFPAY ==
[2024-11-06 13:41] VITALS: BP 212/73; PULSE 64; RESP 15; TEMP 36.9; O2SAT 97
[2024-11-06 13:50] VITALS: BP 212/73; PULSE 64; RESP 15; TEMP 36.9; O2SAT 97
--- NOTE | 2024-11-06 14:06 | RAD_ITS ---
PROCEDURE: CHEST 1 VIEW (PORTABLE) REASON FOR EXAM: 79-year-old female, cough and cold symptoms x1 week. TECHNIQUE: Frontal view of the chest. COMPARISON: Chest radiograph 07/04/2024. FINDINGS: The heart size is normal. The lungs are clear. No focal consolidation, pleural effusion or pneumothorax. Degenerative changes are identified within the thoracic spine. Right shoulder joint arthrosis. RAD/Chest 1 View (Portable) IMPRESSION: NEGATIVE CHEST. Reading Location: [id number]
--- NOTE | 2024-11-06 14:07 | EX.ED.DYSGE1 ---
HPI History of Present Illness Chief Complaint: Cold Sx Informant: patient and family (Son) Narrative Narrative: 79-year-old female presenting to the emergency room with the chief complaint of not feeling well. Patient states past 3 weeks she has had cough runny nose/congestion fatigue some diarrhea. She states that she was seen at [facility] urgent care on November 01 and was diagnosed with a UTI. Urine culture per MyChart grew out mixed radha. She was treated with nitrofurantoin. She also had a chest x-ray that was negative. She states that nothing is particularly different today it just has persisted. She feels globally weak. She states she is not eating as well. [facility] Medical History DVT (deep venous thrombosis) Post-menopausal Dyspnea History of stress test Ovarian tumor Anticoagulant long-term use Non Hodgkin's lymphoma Dehiscence of surgical wound GERD (gastroesophageal reflux disease) Restless leg syndrome Peripheral neuropathy Osteoarthritis Hypertension Morbid obesity with BMI of 40.0-44.9, adult Home Medications ?Medication ?Instructions ?Recorded ?Last Taken ?Type potassium chloride 10 mEq 10 meq PO BID supplement 06/07/18 03/24/24 History tablet,extended release(part/cryst) multivitamin with folic acid 400 1 tab PO DAILY vitamin 08/01/18 03/24/24 History mcg tablet (Thera) apixaban 5 mg tablet 5 mg PO BID blood thinner 08/13/20 03/24/24 History levothyroxine 75 mcg tablet 75 mcg PO DAILY thyroid 07/30/22 03/24/24 History carvedilol 25 mg tablet 25 mg PO BID blood pressure 03/24/24 03/24/24 History gabapentin 400 mg capsule 400 mg PO TID nerve pain 03/24/24 03/24/24 History hydralazine 50 mg tablet 50 mg PO BID blood pressure 03/24/24 03/24/24 History paroxetine HCl 10 mg tablet 10 mg PO DAILY mental health 03/24/24 03/24/24 History clonidine HCl 0.1 mg tablet 0.1 mg PO BID 30 days #60 tabs 03/26/24 Unknown Rx amoxicillin 875 mg-potassium 1 tab PO BID 07/04/24 Unknown History clavulanate 125 mg tablet losartan 100 mg tablet 100 mg PO DAILY 07/04/24 Unknown History meclizine 25 mg tablet 25 mg PO TID 07/04/24 Unknown History omeprazole 20 mg capsule,delayed 20 mg PO DAILY 07/04/24 Unknown History release prednisone 10 mg tablet mg PO 07/04/24 Unknown History albuterol sulfate 90 mcg/actuation 2 puff inhalation Q4H PRN PRN 11/06/24 Unknown Rx aerosol inhaler (Ventolin HFA) Wheezing ##1 amoxicillin 875 mg-potassium 875 mg PO Q12H #20 TABLETS 11/06/24 Unknown Rx clavulanate 125 mg tablet Allergy/AdvReac Type Severity Reaction Status Date / Time COVID-19 vaccine, mRNA, Allergy Anaphylaxis Verified 11/06/24 13:43 [id number], erythromycin base Allergy Rash Verified 11/06/24 13:43 (Erythromycin Base) lisinopril Allergy Swelling Verified 11/06/24 13:43 venom-wasp (wasp) Allergy NEEDS Verified 11/06/24 13:43 FOLLOW-UP amlodipine AdvReac Swelling Verified 11/06/24 13:43 latex AdvReac Swelling Verified 11/06/24 13:43 Family History Mother Hypertension Surgical History S/P laparoscopic cholecystectomy S/P hysterectomy H/O laminectomy History of partial nephrectomy History of tonsillectomy History of total knee arthroplasty History of total abdominal hysterectomy Social History Smoking Status: Never smoker ROS ROS ED ROS Narrative Generalized fatigue Constitutional Constitutional ED: Reports chills; Denies weight loss Eyes Eyes: Denies change in vision or diplopia ENT ENT ED: Reports ear pain, rhinorrhea and other Details: Decreased hearing left ear ; Denies sore throat Cardiovascular Cardiovascular: Denies chest pain, orthopnea, palpitations or racing heartbeat Respiratory/Chest Respiratory/Chest: Reports cough and dyspnea; Denies orthopnea Gastrointestinal Gastrointestinal: Reports diarrhea; Denies abdominal pain, nausea or vomiting Genitourinary Genitourinary ED: Denies dysuria, hematuria or urinary frequency Musculoskeletal Musculoskeletal: Denies arthralgias or myalgias Integumentary Denies abscess or rash Neurologic Neurologic: Reports headache(s); Denies weakness Psychiatric Psychiatric: Denies anxiety, depression, suicidal ideation or suicidal thoughts Endocrine Endocrinology: Denies polydipsia, polyphagia or polyuria Allergic/Immunologic Allergic/Immunologic ED: Denies mouth swelling, tongue swelling or urticaria EXAM Physical Exam Const Vital Signs: 11/06/24 13:41 11/06/24 13:50 11/06/24 14:34 Temperature 98.4 F 98.4 F Temperature Source Temporal Temporal Pulse Rate 64 64 60 Respiratory Rate 15 15 16 Respiratory Pattern Normal Blood Pressure 212/73 H 212/73 H Blood Pressure Mean 119 119 Pulse Ox 97 97 Oxygen Delivery Method Room Air Room Air Positive well nourished, well developed and obese General Appearance ED: well developed and NAD Nutritional Appearance: obese HEENT Reports normocephalic, head/scalp atraumatic and moist mucous membranes HEENT Narrative: Bilateral cerumen impaction mild turbinate edema Eyes PERRL and EOMs intact bilaterally Neck no lymphadenopathy, supple and no JVD Resp normal respiratory effort Resp Narrative: Mild rhonchi bilaterally no wheezing Cardio regular rate, regular rhythm and no murmurs GI normal to inspection, nondistended, normoactive bowel sounds and non-tender Palpation: soft Back/Spine no CVA tenderness and normal ROM Extremity normal to inspection General Extremety ED: Negative for edema General Extremity: Negative for edema Neuro oriented x3 and CN's II-XII intact bilaterally Sensorium / Orientation: alert Motor Exam: strength 5/5 throughout Psych mental status grossly normal Mood & Affect: Negative for depressed or tearful Skin no rashes or lesions noted and no wounds MDM MDM MDM Narrative Medical decision making narrative: Differential diagnosis includes otitis media sinusitis viral syndrome bronchitis pneumonia bronchospasm Patient received a DuoNeb. Ear canals were irrigated with large amounts of cerumen removed. She tolerated the procedure quite well. My independent interpretation the chest x-ray is no acute process. Patient's white count is 3.1 hemoglobin 11.9 platelet count is 101. BMP showed normal electrolytes normal BUN and creatinine. Clinically I think patient most likely has a bronchitis and sinusitis. This is highly likely that it still viral in nature but has been going on 3 weeks. She feels that she is worsening. The patient's blood pressure noted to be elevated but at times she is down into the 170s and 160s. I think is reasonable that the patient try an antibiotic see if this can help resolve the issue also write for an inhaler. She received a DuoNeb here in the department and did well with it. Patient and family are comfortable with this plan History & Record Review Discussion w/independent historian: Patient and Family Additional record(s) reviewed:: Prior labs Lab Data Attestation: I reviewed the patient's lab results. Labs: Laboratory Results - last 24 hr 11/06/24 14:18 WBC 3.1 L RBC 3.85 L Hgb 11.9 L Hct 37.2 MCV 96.6 MCH 30.9 MCHC 32.0 RDW Std Deviation 45.1 H RDW Coeff of [place] 12.8 Plt Count 101 L MPV 9.8 Immature Gran % (Auto) 0.300 Neut % (Auto) 58.0 Lymph % (Auto) 26.8 [place] % (Auto) 12.6 H Eos % (Auto) 2.3 Baso % (Auto) 0.0 Absolute Neuts (auto) 1.8 L Absolute Lymphs (auto) 0.83 Nucleated RBC % 0 Sodium 142 Potassium 3.5 Chloride 110 H Carbon Dioxide 26.0 Anion Gap 6 BUN 9 Creatinine 0.78 Est GFR (MDRD) Af Amer 91 Est GFR (MDRD) Non-Af 75 BUN/Creatinine Ratio 11.6 Glucose 104 Calcium 8.9 Radiography Diagnostic Testing: Clinical Impression(s) from Imaging Studies Chest X-Ray 11/06/24 14:06 IMPRESSION: NEGATIVE CHEST. Reading Location: [facility] Discharge Plan Triage Chief Complaint: Cold Sx ED Provider: Shaquille Wolff Dx/Rx/DC Orders Clinical Impression: Bilateral impacted cerumen, Sinusitis, Bronchitis Instructions: ED Bronchitis with Wheezing (Adult), ED Sinusitis (Antibiotic Treatment) Prescriptions: New albuterol sulfate [Ventolin HFA] 90 mcg/actuation HFA aerosol inhaler 2 puff inhalation Q4H PRN PRN (Reason: Wheezing) Qty: 1 0RF Rx Instructions: with spacer amoxicillin-pot clavulanate 875-125 mg tablet 875 mg PO Q12H Qty: 20 0RF No Action potassium chloride 10 MEQ tablet 10 meq PO BID multivitamin with folic acid [Thera] 1 TABLET tablet 1 tab PO DAILY apixaban 5 MG tablet 5 mg PO BID levothyroxine 75 mcg Tablet 75 mcg PO DAILY carvedilol 25 mg tablet 25 mg PO BID paroxetine HCl 10 mg tablet 10 mg PO DAILY gabapentin 400 mg capsule 400 mg PO TID hydralazine 50 mg tablet 50 mg PO BID clonidine HCl 0.1 mg Tablet 0.1 mg PO BID 30 Days Qty: 60 0RF omeprazole 20 mg capsule,delayed release(DR/EC) 20 mg PO DAILY meclizine 25 mg tablet 25 mg PO TID prednisone 10 mg tablet PO losartan 100 mg tablet 100 mg PO DAILY amoxicillin-pot clavulanate 875-125 mg tablet 1 tab PO BID Primary Care Provider: Ever Kilgore Referrals: Ever Kilgore MD [Primary Care Provider] - 5-7 Days Print Language: Armenian Disposition Disposition: Home, Self Care
[2024-11-06] MEDS: Ipratropium/Albuterol Sulfate 3 ML AMPUL.NEB INHALATION (14:21)
[2024-11-06] MEDS: 0.9% Normal Saline (1000mL) 1,000 ML 1000 ML IV (14:26)
[2024-11-06 14:30] LABS: Absolute Lymphocyte Count 0.83 X10^3/uL (0.83-4.51); Absolute Neutrophil Count 1.8 X10^3/uL (2.0-7.7); Eosinophil# 0.07 X10^3/uL; Eosinophils% 2.3 % (0-5); Hematocrit 37.2 % (37-47); Hemoglobin 11.9 g/dL (12.0-15.0); Lymphocyte # 0.83 X10^3/ul (0.83-4.51); Lymphocyte % 26.8 % (19-41); Mean Corpuscular Hgb 30.9 pg (27.0-32.0); Mean Corpuscular Volume 96.6 fL (81-99); Mean Platelet Vol. 9.8 fl (6.2-12.0); Monocyte# 0.39 X10^3/uL; Monocyte% 12.6 % (0-10); NRBC Flagged by Analyzer 0 % (0-5); Platelet Count 101 K/mm3 (150-450); RBC Distribution Width CV 12.8 % (11.6-14.6); RBC Distribution Width SD 45.1 fl (35.1-43.9); Red Blood Count 3.85 M/mm3 (4.2-5.4); White Blood Count 3.1 K/mm3 (4.4-11.0)
[2024-11-06 14:34] VITALS: PULSE 60; RESP 16
[2024-11-06] MEDS: Carbamide Peroxide 15 ML Bottle 5 DRP OTIC (14:53)
[2024-11-06 15:01] LABS: Anion Gap 6 (5-15); BUN 9 mg/dL (7-18); BUN/Creat Ratio 11.6 RATIO (10-20); Calcium,Total 8.9 mg/dL (8.5-10.1); Chloride 110 mmol/L (98-107); Creatinine, Serum 0.78 mg/dL (0.55-1.02); EST Glomerular Filtration Rate 75 mL/min (>60); Est Glom Filt Rate - Afr Amer 91 mL/min (>60); Glucose 104 mg/dL (74-106); Potassium 3.5 mmol/L (3.5-5.1); Sodium Level 142 mmol/L (136-145)
[2024-11-06 15:40] VITALS: BP 167/101; PULSE 74; RESP 23; O2SAT 95
[2024-11-06 15:46] VITALS: BP 167/101; PULSE 74; RESP 23; TEMP 36.9; O2SAT 95
== END 2024-11-06 15:48 | disposition home or self-care (01) ==
PROVIDERS: Emergency Provider Emergency Medicine; PCP Family Medicine; Visit Provider Emergency Medicine
DX: H61.23 Impacted cerumen, bilateral (principal); J40 Bronchitis, not specified as acute or chronic; E66.9 Obesity, unspecified; Z86.718 Personal history of other venous thrombosis and embolism
CPT/HCPCS: 71045; 80048; 85025; 94640; 96360; 99284; A4216

== ENCOUNTER 2024-11-26 11:12 | Inpatient (IN) | payer MEDICARE, OTHER, SELFPAY ==
[2024-11-26] VITALS (11 sets, daily range): BP systolic 150–191; BP diastolic 68–90; PULSE 67–78; RESP 13–20; TEMP 36.8–38.8; O2SAT 94–97; BMI 44.4; BMI 41.6
--- NOTE | 2024-11-26 11:21 | ED.RN ---
PT FELL LAST NIGHT AROUND 2200, FOUND THIS MORNING BY FAMILY BECAUSE SHE DID NOT ANSWER HER PHONE. SHE HAD AN APPT THIS MORNING SO FAMILY FOUND HER AROUND 1000. C/O LOWER BACK AND RIGHT KNEE PAIN WITH SOME TENDERNESS TO HER HEAD. NO VISIBLE LACS OR INJURIES NOTED
--- NOTE | 2024-11-26 13:27 | CT_ITS ---
EXAM: BRAIN/HEAD WITHOUT CONTRAST CLINICAL HISTORY: Weakness. History of fall. The patient is on anticoagulants. COMPARISON: Comparison is made with prior study dated July 04, 2024. TECHNIQUE: Multiple axial tomographic images were obtained without intravenous contrast administration. Coronal and sagittal reconstruction was obtained as well. FINDINGS: Cerebral atrophy. There is a 9.2 mm hypodensity in the superior left cerebellar peduncle. Correlation with MRI recommended. Decreased periventricular hypodensities suggestive of chronic small-vessel disease. There is opacification of the ethmoid sinuses bilaterally as well as the left sphenoid sinus. CT/Brain/Head without Contrast IMPRESSION: Cerebral atrophy. There is a 9.2 mm hypodensity in the left superior left cerebellar peduncle. C orrelation with MRI recommended. Opacification of the ethmoid sinuses bilaterally as well as the left sphenoid s inus. Reading Location: [id number]
[2024-11-26] MEDS: 0.9% Normal Saline (1000mL) 1,000 ML 1000 ML IV (14:02)
[2024-11-26 14:13] LABS: Bacteria 0 SEEN /hpf (None Seen); Mucous, Urine 0 SEEN /hpf (<or=2+)
[2024-11-26 14:21] LABS: Absolute Lymphocyte Count 0.76 X10^3/uL (0.83-4.51); Absolute Neutrophil Count 3.6 X10^3/uL (2.0-7.7); Basophil# 0.01 X10^3/uL; Basophil% 0.2 % (0-1); Eosinophil# 0.06 X10^3/uL; Eosinophils% 1.2 % (0-5); Hematocrit 36.2 % (37-47); Hemoglobin 11.7 g/dL (12.0-15.0); Lymphocyte # 0.76 X10^3/ul (0.83-4.51); Mean Corp Hgb Conc 32.3 g/dL (32-36); Mean Corpuscular Hgb 30.5 pg (27.0-32.0); Mean Corpuscular Volume 94.5 fL (81-99); Mean Platelet Vol. 10.2 fl (6.2-12.0); Monocyte# 0.62 X10^3/uL; Monocyte% 12.2 % (0-10); NRBC Flagged by Analyzer 0 % (0-5); Neutrophil # 3.61 X10^3/uL (2.7-7.7); Platelet Count 142 K/mm3 (150-450); RBC Distribution Width CV 12.8 % (11.6-14.6); RBC Distribution Width SD 43.9 fl (35.1-43.9); Red Blood Count 3.83 M/mm3 (4.2-5.4); White Blood Count 5.1 K/mm3 (4.4-11.0)
[2024-11-26 14:30] LABS: Color, Urine Yellow (Yellow); Glucose, Dipstick Normal (Normal); Ketone-Dipstick Negative (Negative); Leukocyte Esterase-Dipstick Negative /ul (Negative); Nitrite-Dipstick Negative (Negative); Occult Blood-Urine 10 /ul (Negative); Protein-Dipstick 15 mg/dl (Negative); Urine Bilirubin Dipstick Negative (Negative); Urine Clarity Clear (Clear); Urine Urobilinogen 1 mg/dl (Normal)
--- NOTE | 2024-11-26 14:35 | RAD_ITS ---
PROCEDURE: CHEST PA AND LATERAL REASON FOR EXAM: Weakness, cough and chills. TECHNIQUE: Frontal and lateral views of the chest. COMPARISON: Comparison is made with prior study dated November 06, 2024. FINDINGS: EKG electrodes are seen. The heart is not enlarged. The lungs are clear. RAD/Chest PA and Lateral IMPRESSION: No acute abnormality is seen. Reading Location: [id number]
[2024-11-26 14:49] LABS: Lactic Acid < 1.0 mmol/L (0.0-2.0)
[2024-11-26 14:59] LABS: Red Blood Cells-Urine 0-5 SEEN /hpf (0-5); Squamous Epithelial Cells - UA 0-5 SEEN /hpf (5-10); White Blood Cells 0-5 SEEN /hpf (0-5)
--- NOTE | 2024-11-26 15:21 | EDS_ITS ---
HPI History of Present Illness Chief Complaint: Fall Informant: patient and family Narrative Narrative: Patient is 79-year-old female with history of sleep apnea, restless leg, neuropathy, GERD, [place]RISTIA[place], hypertension and weakness presenting with continued cough, fevers and respiratory illness. Patient states she had a fever last night of with associated chills. She was sweating taken off her close because she was sweating so much when she fell. She is not sure if she passed out but she landed on the ground. She does not think she hit her head. States she was too weak to get up and was on the floor all night. She does live home alone. She notes she has been having some ongoing nausea and intermittent diarrhea. Denies any vomiting. States for the past few weeks she is also been having dizziness lightheadedness. She was diagnosed with COVID at some point in the past few weeks. She thinks it was about 2 weeks ago. She notes she is continue to have a cough has been productive of phlegm which she describes as cream-colored. Denies any chest pain currently but has been having some chest pain with all of this. Did hit her right knee when she fell and complain of pain there. Has a history of prior knee replacement. No other complaints or concerns reported at this time. Patient is on any blood thinners. [facility] Medical History DVT (deep venous thrombosis) Post-menopausal Dyspnea History of stress test Ovarian tumor Anticoagulant long-term use Non Hodgkin's lymphoma Dehiscence of surgical wound GERD (gastroesophageal reflux disease) Restless leg syndrome Peripheral neuropathy Osteoarthritis Hypertension Morbid obesity with BMI of 40.0-44.9, adult Home Medications ?Medication ?Instructions ?Recorded ?Last Taken ?Type potassium chloride 10 mEq 10 meq PO BID supplement 11/25/24 History tablet,extended release(part/cryst) multivitamin with folic acid 400 1 tab PO DAILY vitami n 08/01/18 11/25/24 History mcg tablet (Thera) apixaban 5 mg tablet 5 mg PO BID blood thinner 11/25/24 History levothyroxine 75 mcg tablet 75 mcg PO DAILY thyroid 11/25/24 History carvedilol 25 mg tablet 25 mg PO BID blood pressure 03/24/24 11/25/24 History gabapentin 400 mg capsule 400 mg PO TID nerve pain 12/1311/25/24 History hydralazine 50 mg tablet 50 mg PO BID blood pressure 03/24/24 11/25/24 History paroxetine HCl 10 mg tablet 10 mg PO DAILY mental heal th 03/24/24 11/25/24 History clonidine HCl 0.1 mg tablet 0.1 mg PO BID 30 days #60 tabs 03/26/24 11/25/24 Rx losartan 100 mg tablet 100 mg PO DAILY 07/04/2403/16 History meclizine 25 mg tablet 25 mg PO TID 07/04/24 Unknow n History omeprazole 20 mg capsule,delayed 20 mg PO DAILY PRN ac id reflux 07/04/24 11/25/24 History release albuterol sulfate 90 mcg/actuation 2 puff inhalation Q 4H PRN Wheezing 11/26/24 11/25/24 History aerosol inhaler (Ventolin HFA) Allergy/AdvReac Type Severity Reaction Status Date / Time COVID-19 vaccine, mRNA, Allergy Anaphylaxis Verified 11/26/24 11:17 [id number], erythromycin base Allergy Rash Verified 11/26/24 11:17 (Erythromycin Base) lisinopril Allergy Swelling Verified 11/26/24 11:17 venom-wasp (wasp) Allergy NEEDS Verified 11/26/24 11:17 FOLLOW-UP amlodipine AdvReac Swelling Verified 11/26/24 11:17 latex AdvReac Swelling Verified 11/26/24 11:17 Family History Mother Hypertension Surgical History S/P laparoscopic cholecystectomy S/P hysterectomy H/O laminectomy History of partial nephrectomy History of tonsillectomy History of total knee arthroplasty History of total abdominal hysterectomy Social History Smoking Status: Never smoker ROS ROS ED Constitutional Constitutional ED: Reports chills, fever(s) and sweats Eyes Eyes: Denies blurry vision or change in vision ENT ENT ED: Denies sore throat Cardiovascular Cardiovascular: Reports chest pain; Denies palpitations Respiratory/Chest Respiratory/Chest: Reports cough, dyspnea and sputum Gastrointestinal Gastrointestinal: Reports diarrhea and nausea; Denies abdominal pain or vomiting Musculoskeletal Musculoskeletal: Reports arthralgias and myalgias Integumentary Denies rash Neurologic Neurologic: Reports headache(s) and weakness; Denies paresthesias Hematologic/Lymphatic Hematologic/Lymphatic: Denies easy bleeding or easy bruising EXAM Physical Exam Const Vital Signs: 11/26/24 11:13 11/26/24 11:17 11/26/24 11:22 Temperature 98.7 F 98.2 F Temperature Source Oral Oral Pulse Rate 76 67 Respiratory Rate 16 16 Respiratory Effort Normal Respiratory Depth Normal Respiratory Pattern Normal Blood Pressure 191/90 H 191/90 H Blood Pressure Mean 123 123 Pulse Ox 95 95 95 Oxygen Delivery Method Room Air Room Air Room Air 11/26/24 13:06 11/26/24 15:00 11/26/24 15:20 Temperature 99 F Temperature Source Pulse Rate 68 70 71 Respiratory Rate 16 13 20 H Respiratory Effort Respiratory Depth Respiratory Pattern Blood Pressure 169/70 H 150/78 H 166/68 H Blood Pressure Mean 103 100 100 Pulse Ox 95 95 95 Oxygen Delivery Method Positive well nourished, well developed and obese General Appearance ED: well developed and NAD Nutritional Appearance: obese HEENT HEENT Narrative: Mildly dry mucosal membranes. Normal tympanic membranes bilaterally. Normal external ears. Head atraumatic. Eyes PERRL and EOMs intact bilaterally Neck supple and no JVD Chest Wall inspection of chest normal and palpation of chest normal Resp normal respiratory effort Resp Narrative: Intermittent harsh cough. Mildly bronchial breath sounds present Auscultation: Negative for rhonchi or wheezes Cardio regular rate and regular rhythm GI normal to inspection, nondistended, normoactive bowel sounds, non-tender and non-distended Back/Spine no CVA tenderness Thoracic Spine / Upper Back: Negative for thoracic spinal tenderness or paraspinal muscle tenderness Lumbar Spine / Lower Back: Negative for lumbar spinal tenderness Extremity normal to inspection Extremity Narrative: Localized erythema with mild tenderness with range of motion to the right knee. No pain with range of motion of the bilateral hips. Neuro oriented x3, CN's II-XII intact bilaterally and no sensory deficits noted Neuro Narrative: NIH equals 0 Sensorium / Orientation: alert Motor Exam: strength 5/5 throughout and general weakness Psych mental status grossly normal Skin Skin Narrative: Developing ecchymosis/swelling erythema over the anterior aspect of the right knee. MDM MDM MDM Narrative Medical decision making narrative: Patient evaluated for mid fevers, weakness and fall. Not able to get off the ground. Lives home alone. Differential includes sepsis, stroke, intracranial hemorrhage, rhabdomyolysis, symptomatic anemia, bacteremia, long COVID and urinary tract infection as well as pneumonia. Workup obtained including CT of the brain, chest x-ray, right knee x-ray (she struck her knee when she fell) as well as lab work and blood cultures. COVID test is still positive but she does not test positive for any new pathogens including influenza or RSV. CBC shows chronic appearing anemia with a hemoglobin 11.7 but this appears to be stable. She is 11.9 three weeks ago. No leukocytosis. No left shift. CMP largely normal. Lactate normal. High sensitive troponin pending but EKG does not show any acute ischemic changes. CPK added on because she was on the floor overnight but still pending. Urinalysis not consistent with infection. Chest x-ray viewed by myself as well as radiology does not show any acute process. X-ray of the knee does not show any acute abnormality with status post prior arthroplasty. CT of the brain does show 9.2 mm hypodensity of the left superior left cerebellar peduncle. Recommends MRI for further evaluation. Neurologic evaluation does not show any focal deficits. Case is discussed with hospitalist for admission given her weakness and debility. Recurrent fevers could be secondary to continued COVID symptoms however cultures are pending. Lower suspicion for bacteremia given her normal white blood cell count and normal lactate. Chest x-rays not show any pneumonia I do not think she requires antibiotics at this time. Spoke with hospitalist who does request that I speak with [facility] neurology given the size of the hypodensity on the CT of her brain in case she would require further transfer/other workup and an MRI. Spoke with Dr. Goss who recommends MRI but no further recommendations at this time. Suspect she might have had a stroke given her weakness and fall. Patient is admitted to hospitalist service. Patient and family agreeable this plan of care. Lab Data Attestation: I reviewed the patient's lab results. Labs: Laboratory Results - last 24 hr 11/26/24 14:05 WBC 5.1 RBC 3.83 L Hgb 11.7 L Hct 36.2 L MCV 94.5 MCH 30.5 MCHC 32.3 RDW Std Deviation 43.9 RDW Coeff of [place] 12.8 Plt Count 142 L MPV 10.2 Immature Gran % (Auto) 0.400 Neut % (Auto) 71.0 H Lymph % (Auto) 15.0 L Esmeralda % (Auto) 12.2 H Eos % (Auto) 1.2 Baso % (Auto) 0.2 Absolute Neuts (auto) 3.6 Absolute Lymphs (auto) 0.76 L Nucleated RBC % 0 Sodium 138 Potassium 4.1 Chloride 101 Carbon Dioxide 25.6 Anion Gap 11 BUN 11 Creatinine 0.72 Estim Creat Clear Calc 64.55 Est GFR (MDRD) Non-Af 83 BUN/Creatinine Ratio 15.1 Glucose 108 H Lactic Acid < 1.0 Calcium 9.4 Total Bilirubin 0.49 AST 27 ALT < 5 Alkaline Phosphatase 66 Total Protein 6.1 Albumin 3.7 Globulin 2.4 Albumin/Globulin Ratio 1.5 Urine Color Yellow Urine Clarity Clear Urine pH 7.0 Ur Specific [place] 1.010 Urine Protein 15 H Urine Glucose (UA) Normal Urine Ketones Negative Urine Occult Blood 10 H Urine Nitrite Negative Urine Bilirubin Negative Urine Urobilinogen 1 H Ur Leukocyte Esterase Negative Urine RBC 0-5 SEEN Urine WBC 0-5 SEEN Ur Squamous Epith Cells 0-5 SEEN Urine Bacteria 0 SEEN Urine Mucus 0 SEEN Radiography Diagnostic Testing: Clinical Impression(s) from Imaging Studies Brain CT 11/26/24 13:27 IMPRESSION: Cerebral atrophy. There is a 9.2 mm hypodensity in the left superior left cerebellar peduncle. Correlation with MRI recommended. Opacification of the ethmoid sinuses bilaterally as well as the left sphenoid sinus. Reading Location: [id number] Chest X-Ray 11/26/24 14:35 IMPRESSION: No acute abnormality is seen. Reading Location: [id number] Knee X-Ray 11/26/24 15:38 IMPRESSION: Status post total knee replacement. No acute abnormality is seen. 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
--- NOTE | 2024-11-26 15:38 | RAD_ITS ---
PROCEDURE: KNEE 4 OR MORE VIEWS REASON FOR EXAM: Pain and difficulty with ambulation following a fall. TECHNIQUE: 4 view(s) of the right knee COMPARISON: None. FINDINGS: The patient is status post right total knee replacement. There is good alignment. No evidence of joint effusion. RAD/Knee 4 or More Views IMPRESSION: Status post total knee replacement. No acute abnormality is seen. Reading Location: [facility]
[2024-11-26 15:57] LABS: ALB/GLOB Ratio 1.5 RATIO (0.9-2.4); AST(SGOT) 27 U/L (<=31); Alanine Aminotransfer ALT/SGPT < 5 U/L (<=34); Albumin, Serum 3.7 g/dL (3.4-4.8); Alkaline Phosphatase 66 U/L (35-104); Anion Gap 11 (5-15); BUN 11 mg/dL (4-19); BUN/Creat Ratio 15.1 RATIO (10-20); Calcium,Total 9.4 mg/dL (7.6-11.0); Carbon Dioxide 25.6 mmol/L (21.0-32.0); Chloride 101 mmol/L (98-108); Creatinine, Serum 0.72 mg/dL (0.70-1.20); EST Glomerular Filtration Rate 83 (>60); Estimated Creatinine Clearance 64.55 ml/min (50-250); Globulin 2.4 g/dL (2.2-4.2); Glucose 108 mg/dL (70-99); Potassium 4.1 mmol/L (3.3-5.1); Protein, Total 6.1 g/dL (5.9-8.4); Sodium Level 138 mmol/L (133-145); Total Bilirubin 0.49 mg/dL (0.00-1.30)
--- NOTE | 2024-11-26 16:07 | PCM.HP.STD ---
HPI - General General Date of Admission: 11/26/24 Date of Service: 11/26/24 Chief Complaint: weakness with fall at home HPI Narrative AYAZ HERNANDEZ, is a 79 F who presented to [facility] ED on 11/26/2024 with weakness and a fall at home. Patient lives at home alone, does have family that lives close by. Patient has history of non-Hodgkin's lymphoma, follows with Dr. Quintero. She initially completed 2 rounds of Rituxan immunotherapy in 2021. She was found to have progression of disease on recent CT scans and underwent Rituxan infusions weekly for 4 weeks in September. During treatment she generally felt fatigued and had frequent nausea with decreased p.o. intake. Shortly after completing treatment, she was diagnosed with COVID. Since then she has continued to feel weak and has not been able to do much around the house for herself. Last night she had a subjective fever of 101F with associated chills. She attempted to get out of bed to take off some close because she was sweating so much and she was so weak that she fell to the ground. Did not hit her head. She then laid on the ground all night because of her weakness. She called family this morning who then called EMS to bring her into the hospital. In the ED she was hypertensive to the 190 systolic but otherwise hemodynamically stable on room air. She did spike a fever of 101.9F later this evening. Labs are fairly benign. Chest x-ray was nonacute. CT brain showed no acute bleed, did show an area concerning for subacute versus old stroke. MRI brain was obtained and showed only chronic changes, no acute changes. Patient has required SNF placement in the past and would be agreeable to SNF placement at this time as well. Given these findings, hospitalist was contacted for admission. I saw the patient at bedside in the ED, daughter and son-in-law are present. Patient was mildly fatigued appearing but otherwise sitting back comfortably in bed, conversing normally, in no acute distress. She denied any lightheadedness or dizziness at rest. She felt generally weak but denied any focal right or left-sided weakness. She denied any fevers or chills currently. Denied any chest pain or shortness of breath. Denied any other acute concerns at this time. [facility] Medical History DVT (deep venous thrombosis) Post-menopausal Dyspnea History of stress test Ovarian tumor Anticoagulant long-term use Non Hodgkin's lymphoma Dehiscence of surgical wound GERD (gastroesophageal reflux disease) Restless leg syndrome Peripheral neuropathy Osteoarthritis Hypertension Morbid obesity with BMI of 40.0-44.9, adult Home Medications ?Medication ?Instructions ?Recorded ?Last Taken ?Type potassium chloride 10 mEq 10 meq PO BID supplement 06/07/18 11/25/24 History tablet,extended release(part/cryst) multivitamin with folic acid 400 1 tab PO DAILY vitamin 08/01/18 11/25/24 History mcg tablet (Thera) apixaban 5 mg tablet 5 mg PO BID blood thinner 08/13/20 11/25/24 History levothyroxine 75 mcg tablet 75 mcg PO DAILY thyroid 07/30/22 11/25/24 History carvedilol 25 mg tablet 25 mg PO BID blood pressure 03/24/24 11/25/24 History gabapentin 400 mg capsule 400 mg PO TID nerve pain 03/24/24 11/25/24 History hydralazine 50 mg tablet 50 mg PO BID blood pressure 03/24/24 11/25/24 History paroxetine HCl 10 mg tablet 10 mg PO DAILY mental health 03/24/24 11/25/24 History clonidine HCl 0.1 mg tablet 0.1 mg PO BID 30 days #60 tabs 03/26/24 11/25/24 Rx losartan 100 mg tablet 100 mg PO DAILY 07/04/24 11/25/24 History meclizine 25 mg tablet 25 mg PO TID 07/04/24 Unknown History omeprazole 20 mg capsule,delayed 20 mg PO DAILY PRN acid reflux 07/04/24 11/25/24 History release albuterol sulfate 90 mcg/actuation 2 puff inhalation Q4H PRN Wheezing 11/26/24 11/25/24 History aerosol inhaler (Ventolin HFA) Allergy/AdvReac Type Severity Reaction Status Date / Time COVID-19 vaccine, mRNA, Allergy Anaphylaxis Verified 11/26/24 11:17 [id number], erythromycin base Allergy Rash Verified 11/26/24 11:17 (Erythromycin Base) lisinopril Allergy Swelling Verified 11/26/24 11:17 venom-wasp (wasp) Allergy NEEDS Verified 11/26/24 11:17 FOLLOW-UP amlodipine AdvReac Swelling Verified 11/26/24 11:17 latex AdvReac Swelling Verified 11/26/24 11:17 Family History Mother Hypertension Surgical History S/P laparoscopic cholecystectomy S/P hysterectomy H/O laminectomy History of partial nephrectomy History of tonsillectomy History of total knee arthroplasty History of total abdominal hysterectomy Social History Smoking Status: Never smoker ROS Constitutional Constitutional: Reports chills, fatigue, fever(s) and weakness Eyes Eyes: Denies change in vision Cardiovascular Cardiovascular: Denies chest pain Respiratory/Chest Respiratory/Chest: Denies cough, shortness of breath at rest, shortness of breath with exertion or wheezing Gastrointestinal Gastrointestinal: Denies abdominal pain, constipation, diarrhea, nausea or vomiting Genitourinary Genitourinary: Denies dysuria Musculoskeletal Musculoskeletal: Denies arthralgias or myalgias Neurologic Neurologic: Denies dizziness, headache(s), numbness or paresthesias Vital Signs Vital Signs Vital Signs: 11/26/24 11:13 11/26/24 11:17 11/26/24 11:22 Temperature 98.7 F 98.2 F Temperature Source Oral Oral Pulse Rate 76 67 Respiratory Rate 16 16 Respiratory Effort Normal Respiratory Depth Normal Respiratory Pattern Normal Blood Pressure 191/90 H 191/90 H Blood Pressure Mean 123 123 Pulse Ox 95 95 95 Oxygen Delivery Method Room Air Room Air Room Air 11/26/24 13:06 11/26/24 15:00 11/26/24 15:20 Temperature 99 F Temperature Source Pulse Rate 68 70 71 Respiratory Rate 16 13 20 H Respiratory Effort Respiratory Depth Respiratory Pattern Blood Pressure 169/70 H 150/78 H 166/68 H Blood Pressure Mean 103 100 100 Pulse Ox 95 95 95 Oxygen Delivery Method Weight Weight: 110.2 kg Body Mass Index (BMI) 44.4 Physical Exam Const alert, oriented x3 and no apparent distress Constitutional Narrative: Elderly female, class III obesity, mildly fatigued appearing but otherwise sitting back comfortably in bed, conversing normally, in no acute distress. General Appearance: cooperative and comfortable HEENT normocephalic, head/scalp atraumatic, hearing grossly normal bilaterally, nasal mucous membranes and turbinates normal and moist oral mucous membranes Eyes PERRL, EOMs intact bilaterally and conjunctivae normal Neck full ROM Chest inspection of chest normal Resp normal respiratory effort, no use of accessory muscles and clear to auscultation bilaterally Cardio regular rate, regular rhythm, no murmurs and peripheral pulses 2+ throughout GI normal to inspection, nondistended, normoactive bowel sounds, soft to palpation, non-tender and non-distended Back/Spine normal ROM Extremity normal to inspection, full ROM and no pedal edema Skin no rashes or lesions noted Neuro moves all extremities and no focal motor deficits Speech: speech normal Psych mental status grossly normal Results Lab / Micro Data 11/26/24 14:05 11/26/24 14:05 Labs: Laboratory Results - last 24 hr 11/26/24 14:05: WBC 5.1, RBC 3.83 L, Hgb 11.7 L, Hct 36.2 L, MCV 94.5, MCH 30.5, MCHC 32.3, RDW Std Deviation 43.9, RDW Coeff of [place] 12.8, Plt Count 142 L, MPV 10.2, Immature Gran % (Auto) 0.400, Neut % (Auto) 71.0 H, Lymph % (Auto) 15.0 L, [place] % (Auto) 12.2 H, Eos % (Auto) 1.2, Baso % (Auto) 0.2, Absolute Neuts (auto) 3.6, Absolute Lymphs (auto) 0.76 L, Nucleated RBC % 0, Sodium 138, Potassium 4.1, Chloride 101, Carbon Dioxide 25.6, Anion Gap 11, BUN 11, Creatinine 0.72, Estim Creat Clear Calc 64.55, Est GFR (MDRD) Non-Af 83, BUN/Creatinine Ratio 15.1, Glucose 108 H, Lactic Acid < 1.0, Calcium 9.4, Total Bilirubin 0.49, AST 27, ALT < 5, Alkaline Phosphatase 66, Total Protein 6.1, Albumin 3.7, Globulin 2.4, Albumin/Globulin Ratio 1.5, Urine Color Yellow, Urine Clarity Clear, Urine pH 7.0, Ur Specific [place] 1.010, Urine Protein 15 H, Urine Glucose (UA) Normal, Urine Ketones Negative, Urine Occult Blood 10 H, Urine Nitrite Negative, Urine Bilirubin Negative, Urine Urobilinogen 1 H, Ur Leukocyte Esterase Negative, Urine RBC 0-5 SEEN, Urine WBC 0-5 SEEN, Ur Squamous Epith Cells 0-5 SEEN, Urine Bacteria 0 SEEN, Urine Mucus 0 SEEN Micro: Microbiology 11/26/24 13:40 Mucosa - Nose SARS-CoV-2, Influenza & RSV (PCR) - Final SARS-CoV-2 (COVID 19 PCR) Imaging Radiology Impression Brain CT 11/26/24 13:27 IMPRESSION: Cerebral atrophy. There is a 9.2 mm hypodensity in the left superior left cerebellar peduncle. Correlation with MRI recommended. Opacification of the ethmoid sinuses bilaterally as well as the left sphenoid sinus. Reading Location: [id number] Chest X-Ray 11/26/24 14:35 IMPRESSION: No acute abnormality is seen. Reading Location: [id number] Knee X-Ray 11/26/24 15:38 IMPRESSION: Status post total knee replacement. No acute abnormality is seen. Reading Location: [id number] Assessment & Plan Assessment/Plan (1) Debility: (2) Weakness: PLAN: Plan Patient is an 79-year-old female who presented to [facility] ED on 11/26/2024 with weakness and a fall at home. 1. Acute on chronic debility ? Admit under observation status to PCU. PT/OT/case management consulted. Suspect worsening weakness is multifactorial from recent rounds of immunotherapy treatment in September followed by COVID infection. Suspect patient will need SNF on discharge but will follow-up therapy recommendations. 2. COVID-19 positive ? COVID-19 positive on this admit. However, patient reported having initial COVID diagnosis about 7 weeks ago. Chest x-ray unremarkable and patient stable on room air. Mild dry cough noted. No need for treatment with steroids or remdesivir. Symptomatic management. No need for isolation precautions at this time. 3. History of non-Hodgkin's lymphoma with recent immunotherapy treatment ? Follows with Dr. Quintero. Had 4 rounds of Rituxan infusion therapy done on a weekly basis in September. Plan was for repeat CT scan 6 weeks later to reevaluate her lesions. No inpatient needs, continue close outpatient follow-up. 4. Left cerebellar hypodensity ? CT brain without contrast called a 9.2 mm hypodensity in the superior left cerebellar peduncle. ED physician discussed with on-call neurology who suspected either subacute versus old stroke and recommended MRI brain for further evaluation. MRI brain showed no acute intracranial abnormality, only chronic small vessel ischemic changes. No further workup needed at this time. Chronic medical conditions: ? Class III obesity: BMI 41 on admit. Complicates hospital course, care and prognosis. ? 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 ? Hypothyroidism: Continue home Synthroid. ? Hypertension: Continue home Coreg, clonidine, hydralazine, and losartan. ? Depression: Continue home paroxetine. ? Neuropathy: Continue home gabapentin. ? GERD: Continue home omeprazole. ? History of bilateral remote knee replacements DVT prophylaxis: Not indicated, on Eliquis CODE STATUS: Full code, verified Expected disposition: Likely SNF, 1 to 2 days Total clinical time spent by myself addressing the patient's medical issues, reviewing all the data, and collaborating with patient's care team: 75 minutes. Charges/Coding Visit Charges Inpatient E&M: 90895 Init Hosp L3
--- NOTE | 2024-11-26 17:29 | MRI_ITS ---
PROCEDURE: CT brain without IV contrast REASON FOR EXAM: Neurologic deficit, evaluate for CVA TECHNIQUE: Multisequence multiplanar MR images of the brain were obtained without the administration of intravenous contrast. COMPARISON: Same day CT FINDINGS: No diffusion restriction to suggest acute/subacute ischemia. Moderate generalized cerebral atrophy and chronic small-vessel ischemic changes. No suspicious cortical edema. No hydrocephalus. No evidence of chronic microhemorrhage. Globes are intact. Rather extensive mucosal thickening throughout the ethmoid sinuses. Mild left sphenoid, bilateral maxillary and frontal sinus mucosal thickening. MRI/Brain without Contrast IMPRESSION: 1. No acute intracranial abnormality. 2. Atrophy and chronic small-vessel ischemic disease. 3. Moderate scattered paranasal sinus disease. Reading Location: [id number]
[2024-11-26] MEDS: Carvedilol 25 MG Tablet PO (18:57)
[2024-11-26 19:03] LABS: Troponin T High Sens 4 HR 20 ng/L (<=14)
[2024-11-26] MEDS: Potassium Chloride Oral Tablet 10 MEQ PO (20:06)
[2024-11-26] MEDS: hydrALAZINE 50 MG Tablet PO (20:06)
[2024-11-26] MEDS: Gabapentin 400 MG Capsule PO (20:07)
[2024-11-26] MEDS: Acetaminophen 325 MG Tablet 650 MG PO (20:07)
[2024-11-26] MEDS: APIXABAN 5 MG TABLET PO (20:07)
[2024-11-26] MEDS: cloNIDine HCl 0.1 MG Tablet PO (20:07)
[2024-11-26 20:55] LABS: Troponin T High Sens 2 HR 18 ng/L (<=14)
[2024-11-26 22:51] LABS: Troponin T High Sensitivity 18 ng/L (<=14)
[2024-11-26 23:13] LABS: CPK Total, Creatine Kinase 183 U/L (24-195)
[2024-11-27] VITALS (8 sets, daily range): BP systolic 108–129; BP diastolic 44–63; PULSE 65–71; RESP 16–18; TEMP 36.3–37.6; O2SAT 93–95
[2024-11-27] MEDS: Gabapentin 400 MG Capsule PO ×3 (05:38→22:42)
[2024-11-27] MEDS: Levothyroxine 75 MCG Tablet PO (05:38)
[2024-11-27 07:48] LABS: Hematocrit 33.8 % (37-47); Mean Corp Hgb Conc 32.5 g/dL (32-36); Mean Corpuscular Hgb 30.8 pg (27.0-32.0); Mean Corpuscular Volume 94.7 fL (81-99); Mean Platelet Vol. 9.9 fl (6.2-12.0); Platelet Count 123 K/mm3 (150-450); RBC Distribution Width CV 12.9 % (11.6-14.6); RBC Distribution Width SD 44.3 fl (35.1-43.9); Red Blood Count 3.57 M/mm3 (4.2-5.4); White Blood Count 4.1 K/mm3 (4.4-11.0)
--- NOTE | 2024-11-27 08:02 | PN.HOSP_ITS ---
Reason for Visit Reason for Visit: Diagnoses Weakness (11/26/24) Other malaise (11/26/24) Subjective Subjective Patient is an 79-year-old lady with recent diagnosis of COVID 2 weeks prior to her admission presented with progressive generalized weakness and fall Objective Data Objective Data Vital Signs: Vital Signs Temp Pulse Resp BP Pulse Ox O2 Del Method 98.5 F 67 18 122/63 H 95 Room Air 11/27/24 05:38 11/27/24 03:06 11/27/24 03:06 11/27/24 03:06 11/27/24 03:06 11/27/24 03:46 Oxygen Delivery Method Room Air Weight: 106.7 kg Body Mass Index (BMI) 41.6 Intake & Output: Intake and Output for Last 24 Hours 11/25/24 11/26/24 11/27/24 23:59 23:59 23:59 Intake Total 1000 / 1000 Balance 1000 / 1000 Lab / Micro Data 11/27/24 07:35 11/27/24 07:35 Labs: Laboratory Results - last 24 hr 11/26/24 14:05: WBC 5.1, RBC 3.83 L, Hgb 11.7 L, Hct 36.2 L, MCV 94.5, MCH 30.5, MCHC 32.3, RDW Std Deviation 43.9, RDW Coeff of Medhat 12.8, Plt Count 142 L, MPV 10.2, Immature Gran % (Auto) 0.400, Neut % (Auto) 71.0 H, Lymph % (Auto) 15.0 L, Lares % (Auto) 12.2 H, Eos % (Auto) 1.2, Baso % (Auto) 0.2, Absolute Neuts (auto) 3.6, Absolute Lymphs (auto) 0.76 L, Nucleated RBC % 0, Sodium 138, Potassium 4.1, Chloride 101, Carbon Dioxide 25.6, Anion Gap 11, BUN 11, Creatinine 0.72, Estim Creat Clear Calc 64.55, Est GFR (MDRD) Non-Af 83, BUN/Creatinine Ratio 15.1, Glucose 108 H, Lactic Acid < 1.0, Calcium 9.4, Total Bilirubin 0.49, AST 27, ALT < 5, Alkaline Phosphatase 66, Total Creatine Kinase 183, Troponin T High Sens 18 H, Total Protein 6.1, Albumin 3.7, Globulin 2.4, Albumin/Globulin Ratio 1.5, Urine Color Yellow, Urine Clarity Clear, Urine pH 7.0, Ur Specific [place] 1.010, Urine Protein 15 H, Urine Glucose (UA) Normal, Urine Ketones Negative, U rine Occult Blood 10 H, Urine Nitrite Negative, Urine Bilirubin Negative, Urine Urobilinogen 1 H, Ur Leukocyte Esterase Negative, Urine RBC 0-5 SEEN, Urine WBC 0-5 SEEN, Ur Squamous Epith Cells 0-5 SEEN, Urine Bacteria 0 SEEN, Urine Mucus 0 SEEN 11/26/24 17:15: Troponin T Hi Sens 2 Hr Cancelled 11/26/24 17:45: Troponin T Hi Sens 4Hr 20 H 11/26/24 20:35: Troponin T Hi Sens 2 Hr 18 H 11/27/24 07:35: WBC 4.1 L, RBC 3.57 L, Hgb 11.0 L, Hct 33.8 L, MCV 94.7, MCH 30.8, MCHC 32.5, RDW Std Deviation 44.3 H, RDW Coeff of Medhat 12.9, Plt Count 123 L, MPV 9.9 Micro: Microbiology 11/26/24 13:40 Mucosa - Nose SARS-CoV-2, Influenza & RSV (PCR) - Final SARS-CoV-2 (COVID 19 PCR) Radiography Diagnostic Testing: Radiology Impression Brain CT 11/26/24 13:27 IMPRESSION: Cerebral atrophy. There is a 9.2 mm hypodensity in the left superior left cerebellar peduncle. Correlation with MRI recommended. Opacification of the ethmoid sinuses bilaterally as well as the left sphenoid sinus. Reading Location: [id number] Chest X-Ray 11/26/24 14:35 IMPRESSION: No acute abnormality is seen. Reading Location: [id number] Knee X-Ray 11/26/24 15:38 IMPRESSION: Status post total knee replacement. No acute abnormality is seen. Reading Location: [id number] Brain MRI 11/26/24 17:29 IMPRESSION: 1. No acute intracranial abnormality. 2. Atrophy and chronic small-vessel ischemic disease. 3. Moderate scattered paranasal sinus disease. Reading Location: [facility] Rhythm Strip Rhythm Strip: Sinus Rhythm Rate: 68 Ectopy: None Assessment & Plan Assessment/Plan (1) Debility: (2) Weakness: PLAN: Plan Patient is an 79-year-old lady with recent diagnosis of COVID 2 weeks prior to her admission presented with progressive generalized weakness and fall 1. Physical deconditioning/debility ? Secondary to recent COVID-19 infection requested for PT OT eval and pediatric social worker to assist with discharge planning 2. COVID-19 infection ? Patient initial diagnosis was 7 weeks prior still remains positive plan is to continue with symptom management 3. Non-Hodgkin's lymphoma ? Patient currently undergoing treatment as outpatient 4. Left cerebellar hypodensity ? CT brain without contrast called a 9.2 mm hypodensity in the superior left cerebellar peduncle. ED physician discussed with on-call neurology who suspected either subacute versus old stroke and recommended MRI brain for further evaluation. MRI brain showed no acute intracranial abnormality, only chronic small vessel ischemic changes. No further workup needed at this time. 5. Class III obesity with BMI of 41.7 ? Complicating care weight loss advised 6. Hypertension ? 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 Hypothyroidism ? Patient is on levothyroxine home dose continued 9. Peripheral neuropathy ? Patient is on gabapentin 10. Depression with anxiety ? Patient is on paroxetine 11. GERD ? Patient is on omeprazole 12. Generalized osteoarthritis ? With history of bilateral knee replacement 13. Anemia ? Secondary to chronic disorder monitoring H&H and transfuse if patient becomes symptomatic or hemoglobin falls below 7 14. DVT prophylaxis Already on apixaban Time spent in the patient's overall evaluation,decision-making process, review of diagnostic data, adjustment of management, discussion with other providers, nursing nursing and ancillary staff involved in patient's care documentation,50 Minutes Charges/Coding Visit Charges Inpatient E&M: 67134 [facility] [[email or web address] Hosp L3
[2024-11-27 09:46] LABS: Anion Gap 11 (5-15); BUN 13 mg/dL (4-19); BUN/Creat Ratio 16.7 RATIO (10-20); Calcium,Total 8.6 mg/dL (7.6-11.0); Carbon Dioxide 24.1 mmol/L (21.0-32.0); Chloride 104 mmol/L (98-108); EST Glomerular Filtration Rate 75 (>60); Estimated Creatinine Clearance 64.53 ml/min (50-250); Glucose 101 mg/dL (70-99); Sodium Level 139 mmol/L (133-145)
[2024-11-27] MEDS: hydrALAZINE 50 MG Tablet PO ×2 (10:57→22:41)
[2024-11-27] MEDS: Acetaminophen 325 MG Tablet 650 MG PO ×2 (10:57→16:49)
[2024-11-27] MEDS: Multivitamins,Therapeutic Tablet 1 TABLET PO (10:58)
[2024-11-27] MEDS: Losartan Potassium 100 MG Tablet PO (10:58)
[2024-11-27] MEDS: APIXABAN 5 MG TABLET PO ×2 (10:58→22:42)
[2024-11-27] MEDS: PARoxetine 10 MG Tablet PO (10:58)
[2024-11-27] MEDS: Carvedilol 25 MG Tablet PO ×2 (10:58→16:49)
[2024-11-27] MEDS: cloNIDine HCl 0.1 MG Tablet PO ×2 (10:58→22:41)
[2024-11-27] MEDS: Potassium Chloride Oral Tablet 10 MEQ PO ×2 (10:58→16:49)
[2024-11-27] MEDS: 0.9% Saline Lock 10 ML Syringe IV (10:59)
--- NOTE | 2024-11-27 14:39 | CASEMGMT ---
FRANCESCO ELISE Assessment: Face to Face with pt for initial transition planning/care coordination assessment. FRANCESCO ELISE introduced self and role at [facility], pt voices understanding and consents to assessment. Pt is A&O x4 and answers all questions appropriately at this time. Care providers, pharmacy, and demographics verified/updated. Strata: 3 Admitting Dx: Weakness/Fall at home PCP: Magui Specialists: OncologistIngrid Preferred Pharmacy: [facility] Insurance: [facility], [facility] Prescription Benefit: yes LNOK: Son, Josse; Daughter, Shauna Living Arrangements: Pt lives alone in an apartment ADLs: Pt states I at baseline with ADLs and IADLs. Transportation: Pt drives self and denies concerns with transportation. DME: Walker, cane, shower bench, HHC/SNF: Previously was at [facility], also had HHC services but does not recall what agency. Pt states no concerns with going home at time of dc. Pt states no further concerns/needs. CM to follow. Advised pt to ask CM if any further question/concerns/needs arise, voices understanding. Pt Goal: SNF, pt requested [facility] as she has been there in the past. Plan: SNF, SW notified of Pt request. Hayden MAYA CM
--- NOTE | 2024-11-27 14:43 | CASEMGMT ---
Per RN CM patient would like to go to [facility] for rehab. Patient declined a list unless [facility] cannot take her. SW sent a referral to [facility] via [facility]. Azalea Robles MILK VENDORVictorino [facility]ER[facility]
[2024-11-28] VITALS (8 sets, daily range): BP systolic 108–145; BP diastolic 44–78; PULSE 70–78; RESP 18; TEMP 36.8–39.2; O2SAT 93–95
[2024-11-28] MEDS: Acetaminophen 325 MG Tablet 650 MG PO ×2 (04:18→21:59)
[2024-11-28] MEDS: Levothyroxine 75 MCG Tablet PO (05:51)
[2024-11-28] MEDS: Gabapentin 400 MG Capsule PO ×3 (05:51→21:59)
--- NOTE | 2024-11-28 07:38 | PCM.PN.HOSP ---
Reason for Visit Reason for Visit: Diagnoses Weakness (11/27/24) Other malaise (11/27/24) Subjective Subjective Patient seen complains of intermittent fever and chills otherwise had a relatively unremarkable evening Objective Data Objective Data Vital Signs: Vital Signs Temp Pulse Resp BP Pulse Ox O2 Del Method 99.3 F H 73 18 109/56 L 94 Room Air 11/28/24 04:40 11/28/24 04:40 11/28/24 04:40 11/28/24 04:40 11/28/24 04:40 11/28/24 04:40 Oxygen Delivery Method Room Air Weight: 106.7 kg Body Mass Index (BMI) 41.6 Intake & Output: Intake and Output for Last 24 Hours 11/26/24 11/27/24 11/29/24 23:59 23:59 00:59 Intake Total 1000 / 1000 240 / 240 Output Total 225 / 225 Balance 1000 / 1000 Lab / Micro Data 11/28/24 09:00 11/27/24 07:35 Labs: Laboratory Results - last 24 hr 11/27/24 07:35: WBC 4.1 L, RBC 3.57 L, Hgb 11.0 L, Hct 33.8 L, MCV 94.7, MCH 30.8, MCHC 32.5, RDW Std Deviation 44.3 H, RDW Coeff of Medhat 12.9, Plt Count 123 L, MPV 9.9, Sodium 139, Potassium 4.0, Chloride 104, Carbon Dioxide 24.1, Anion Gap 11, BUN 13, Creatinine 0.80, Estim Creat Clear Calc 64.53, Est GFR (MDRD) Non-Af 75, BUN/Creatinine Ratio 16.7, Glucose 101 H, Calcium 8.6 Micro: Microbiology 11/26/24 13:40 Mucosa - Nose SARS-CoV-2, Influenza & RSV (PCR) - Final SARS-CoV-2 (COVID 19 PCR) Rhythm Strip Rhythm Strip: Sinus Rhythm Rate: 68 Ectopy: None Physical Exam Narrative GENERAL: cooperative HEENT: Atraumatic; normocephalic EYES; Anicteric, Normal Conjunctiva NECK; supple, normal thyroid, RESPIRATORY: Diminished to auscultation CARDIOVASCULAR: Regular S1 S2, GI: soft, normoactive bowel sounds, : No Renal angle tenderness; EXTREMITIES: No edema, no clubbing, MUSCULOSKELETAL: no muscle wasting NEURO: Awake; no lateralizing signs. SKIN: No Rash PSYCH; Flat affect Assessment & Plan Assessment/Plan (1) Debility: (2) Weakness: PLAN: Plan Patient is an 79-year-old lady with recent diagnosis of COVID 2 weeks prior to her admission presented with progressive generalized weakness and fall 1. Physical deconditioning/debility ? Secondary to recent COVID-19 infection requested for PT OT eval and licensed clinical social worker to assist with discharge planning ? 11/28/2024 patient still remains significantly weak. Case was discussed with case management today prior plan is for patient [facility] be [facility] a [facility] facility pending insurance 2. COVID-19 infection ? Patient initial diagnosis was 7 weeks prior still remains positive plan is to continue with symptom management ? 11/28/2024; patient continues to experience intermittent fever and chills. 3. Non-Hodgkin's lymphoma ? Patient currently undergoing treatment as outpatient 4. Left cerebellar hypodensity ? CT brain without contrast called a 9.2 mm hypodensity in the superior left cerebellar peduncle. ED physician discussed with on-call neurology who suspected either subacute versus old stroke and recommended MRI brain for further evaluation. MRI brain showed no acute intracranial abnormality, only chronic small vessel ischemic changes. No further workup needed at this time. 5. Class III obesity with BMI of 41.7 ? Complicating care weight loss advised 6. Hypertension ? 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 Hypothyroidism ? Patient is on levothyroxine home dose continued 9. Peripheral neuropathy ? Patient is on gabapentin 10. Depression with anxiety ? Patient is on paroxetine 11. GERD ? Patient is on omeprazole 12. Generalized osteoarthritis ? With history of bilateral knee replacement 13. Anemia ? Secondary to chronic disorder monitoring H&H and transfuse if patient becomes symptomatic or hemoglobin falls below 7 14. DVT prophylaxis Already on apixaban Time spent in the patient's overall evaluation,decision-making process, review of diagnostic data, adjustment of management, discussion with other providers, nursing nursing and ancillary staff involved in patient's care documentation, 38 Minutes Charges/Coding Visit Charges Inpatient E&M: 30133 Subs Hosp L2
[2024-11-28 09:20] LABS: Hematocrit 35.1 % (37-47); Hemoglobin 11.1 g/dL (12.0-15.0); Mean Corp Hgb Conc 31.6 g/dL (32-36); Mean Corpuscular Hgb 30.7 pg (27.0-32.0); Mean Platelet Vol. 10.4 fl (6.2-12.0); Platelet Count 130 K/mm3 (150-450); RBC Distribution Width CV 12.9 % (11.6-14.6); RBC Distribution Width SD 45.7 fl (35.1-43.9); Red Blood Count 3.62 M/mm3 (4.2-5.4); White Blood Count 4.5 K/mm3 (4.4-11.0)
[2024-11-28] MEDS: PARoxetine 10 MG Tablet PO (09:32)
[2024-11-28] MEDS: Carvedilol 25 MG Tablet PO ×2 (09:32→16:26)
[2024-11-28] MEDS: Multivitamins,Therapeutic Tablet 1 TABLET PO (09:32)
[2024-11-28] MEDS: cloNIDine HCl 0.1 MG Tablet PO ×2 (09:32→21:59)
[2024-11-28] MEDS: Losartan Potassium 100 MG Tablet PO (09:32)
[2024-11-28] MEDS: APIXABAN 5 MG TABLET PO ×2 (09:32→21:59)
[2024-11-28] MEDS: Potassium Chloride Oral Tablet 10 MEQ PO ×2 (09:32→16:26)
[2024-11-28] MEDS: hydrALAZINE 50 MG Tablet PO ×2 (09:54→21:59)
[2024-11-28 11:20] LABS: ALB/GLOB Ratio 1.3 RATIO (0.9-2.4); AST(SGOT) 28 U/L (<=31); Alanine Aminotransfer ALT/SGPT 5 U/L (<=34); Albumin, Serum 3.3 g/dL (3.4-4.8); Alkaline Phosphatase 56 U/L (35-104); Anion Gap 11 (5-15); BUN 19 mg/dL (4-19); BUN/Creat Ratio 19.4 RATIO (10-20); Calcium,Total 8.9 mg/dL (7.6-11.0); Carbon Dioxide 24.1 mmol/L (21.0-32.0); Chloride 103 mmol/L (98-108); Creatinine, Serum 0.99 mg/dL (0.70-1.20); EST Glomerular Filtration Rate 58 (>60); Estimated Creatinine Clearance 52.15 ml/min (50-250); Globulin 2.5 g/dL (2.2-4.2); Glucose 113 mg/dL (70-99); Potassium 4.2 mmol/L (3.3-5.1); Protein, Total 5.7 g/dL (5.9-8.4); Sodium Level 138 mmol/L (133-145); Total Bilirubin 0.28 mg/dL (0.00-1.30)
[2024-11-28] MEDS: MELATONIN 3 MG TABLET PO (21:59)
[2024-11-29] VITALS (8 sets, daily range): BP systolic 115–152; BP diastolic 50–63; PULSE 58–74; RESP 16–20; TEMP 36.5–37.1; O2SAT 94–96
[2024-11-29] MEDS: Gabapentin 400 MG Capsule PO ×3 (05:31→20:26)
[2024-11-29] MEDS: Levothyroxine 75 MCG Tablet PO (05:31)
[2024-11-29 05:41] LABS: Absolute Lymphocyte Count 0.87 X10^3/uL (0.83-4.51); Absolute Neutrophil Count 2.7 X10^3/uL (2.0-7.7); Basophil# 0.01 X10^3/uL; Basophil% 0.2 % (0-1); Eosinophil# 0.13 X10^3/uL; Hematocrit 31.7 % (37-47); Lymphocyte # 0.87 X10^3/ul (0.83-4.51); Lymphocyte % 20.1 % (19-41); Mean Corp Hgb Conc 31.5 g/dL (32-36); Mean Corpuscular Hgb 30.4 pg (27.0-32.0); Mean Corpuscular Volume 96.4 fL (81-99); Mean Platelet Vol. 10.3 fl (6.2-12.0); Monocyte# 0.55 X10^3/uL; Monocyte% 12.7 % (0-10); NRBC Flagged by Analyzer 0 % (0-5); Neutrophil # 2.71 X10^3/uL (2.7-7.7); Neutrophil % 62.8 % (47-70); Platelet Count 117 K/mm3 (150-450); RBC Distribution Width SD 46.3 fl (35.1-43.9); Red Blood Count 3.29 M/mm3 (4.2-5.4); White Blood Count 4.3 K/mm3 (4.4-11.0)
[2024-11-29 06:16] LABS: Anion Gap 10 (5-15); BUN 22 mg/dL (4-19); BUN/Creat Ratio 25.7 RATIO (10-20); Calcium,Total 8.7 mg/dL (7.6-11.0); Carbon Dioxide 22.4 mmol/L (21.0-32.0); Chloride 105 mmol/L (98-108); Creatinine, Serum 0.84 mg/dL (0.70-1.20); EST Glomerular Filtration Rate 70 (>60); Estimated Creatinine Clearance 61.46 ml/min (50-250); Glucose 117 mg/dL (70-99); Phosphorus 3.8 mg/dL (2.7-4.5); Potassium 4.2 mmol/L (3.3-5.1); Sodium Level 137 mmol/L (133-145)
--- NOTE | 2024-11-29 08:07 | PCM.PN.HOSP ---
Reason for Visit Reason for Visit: Diagnoses Weakness (11/27/24) Other malaise (11/27/24) Subjective Subjective Patient seen complains of intermittent fever and chills. Temperature maximum over the past 24 hours 102.5. Repeated viral respiratory panel, checks x-ray urinalysis Objective Data Objective Data Vital Signs: Vital Signs Temp Pulse Resp BP Pulse Ox O2 Del Method 97.7 F L 58 L 16 115/61 94 Room Air 11/29/24 05:24 11/29/24 05:24 11/29/24 05:24 11/29/24 05:24 11/29/24 05:24 11/29/24 05:24 Oxygen Delivery Method Room Air Weight: 106.7 kg Body Mass Index (BMI) 41.6 Intake & Output: Intake and Output for Last 24 Hours 11/27/24 11/29/24 11/29/24 23:59 00:59 23:59 Intake Total 1040 / 1040 Output Total 625 / 875 475 / 475 Balance 415 / 165 -475 / -475 Lab / Micro Data 11/29/24 05:16 11/29/24 05:16 Labs: Laboratory Results - last 24 hr 11/28/24 09:00: WBC 4.5, RBC 3.62 L, Hgb 11.1 L, Hct 35.1 L, MCV 97.0, MCH 30.7, MCHC 31.6 L, RDW Std Deviation 45.7 H, RDW Coeff of Medhat 12.9, Plt Count 130 L, MPV 10.4, Sodium 138, Potassium 4.2, Chloride 103, Carbon Dioxide 24.1, Anion Gap 11, BUN 19, Creatinine 0.99, Estim Creat Clear Calc 52.15, Est GFR (MDRD) Non-Af 58 L, BUN/Creatinine Ratio 19.4, Glucose 113 H, Calcium 8.9, Magnesium 2.0, Total Bilirubin 0.28, AST 28, ALT 5, Alkaline Phosphatase 56, Total Protein 5.7 L, Albumin 3.3 L, Globulin 2.5, Albumin/Globulin Ratio 1.3 11/29/24 05:16: WBC 4.3 L, RBC 3.29 L, Hgb 10.0 L, Hct 31.7 L, MCV 96.4, MCH 30.4, MCHC 31.5 L, RDW Std Deviation 46.3 H, RDW Coeff of Medhat 13.0, Plt Count 117 L, MPV 10.3, Immature Gran % (Auto) 1.200 H, Neut % (Auto) 62.8, Lymph % (Auto) 20.1, [place] % (Auto) 12.7 H, Eos % (Auto) 3.0, Baso % (Auto) 0.2, Absolute Neuts (auto) 2.7, Absolute Lymphs (auto) 0.87, Nucleated RBC % 0, Sodium 137, Potassium 4.2, Chloride 105, Carbon Dioxide 22.4, Anion Gap 10, BUN 22 H, Creatinine 0.84, Estim Creat Clear Calc 61.46, Est GFR (MDRD) Non-Af 70, BUN/Creatinine Ratio 25.7 H, Glucose 117 H, Calcium 8.7, Phosphorus 3.8 Micro: Microbiology 11/26/24 14:05 Blood Culture (Wb) - Venous Blood Culture - Preliminary No growth in 48 hours. 11/26/24 14:05 Blood Culture (Wb) - Venous Blood Culture - Preliminary No growth in 48 hours. 11/26/24 13:40 Mucosa - Nose SARS-CoV-2, Influenza & RSV (PCR) - Final SARS-CoV-2 (COVID 19 PCR) Rhythm Strip Rhythm Strip: Sinus Rhythm Rate: 68 Ectopy: None Physical Exam Narrative GENERAL: cooperative HEENT: Atraumatic; normocephalic EYES; Anicteric, Normal Conjunctiva NECK; supple, normal thyroid, RESPIRATORY: Diminished to auscultation CARDIOVASCULAR: Regular S1 S2, GI: soft, normoactive bowel sounds, : No Renal angle tenderness; EXTREMITIES: No edema, no clubbing, MUSCULOSKELETAL: no muscle wasting NEURO: Awake; no lateralizing signs. SKIN: No Rash PSYCH; Flat affect Assessment & Plan Assessment/Plan (1) Debility: (2) Weakness: PLAN: Plan Patient is an 79-year-old lady with recent diagnosis of COVID 2 weeks prior to her admission presented with progressive generalized weakness and fall 1. Acute febrile illness ? Patient tested positive for COVID several weeks prior repeat testing on admission still came back positive. Patient still complains of intermittent fever and persistent chills. Repeated viral respiratory panel checks x-ray as well as urinalysis 2. Physical deconditioning/debility ? Secondary to recent COVID-19 infection requested for PT OT eval and oncology social worker to assist with discharge planning ? 11/28/2024 patient still remains significantly weak. Case was discussed with case management today prior plan is for patient to be discharged to a [facility] facility pending insurance 3. Non-Hodgkin's lymphoma ? Patient currently undergoing treatment as outpatient 4. Left cerebellar hypodensity ? CT brain without contrast called a 9.2 mm hypodensity in the superior left cerebellar peduncle. ED physician discussed with on-call neurology who suspected either subacute versus old stroke and recommended MRI brain for further evaluation. MRI brain showed no acute intracranial abnormality, only chronic small vessel ischemic changes. No further workup needed at this time. 5. Class III obesity with BMI of 41.7 ? Complicating care weight loss advised 6. Hypertension ? 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 Hypothyroidism ? Patient is on levothyroxine home dose continued 9. Peripheral neuropathy ? Patient is on gabapentin 10. Depression with anxiety ? Patient is on paroxetine 11. GERD ? Patient is on omeprazole 12. Generalized osteoarthritis ? With history of bilateral knee replacement 13. Anemia ? Secondary to chronic disorder monitoring H&H and transfuse if patient becomes symptomatic or hemoglobin falls below 7 14. DVT prophylaxis Already on apixaban Time spent in the patient's overall evaluation,decision-making process, review of diagnostic data, adjustment of management, discussion with other providers, nursing nursing and ancillary staff involved in patient's care documentation, 50 minutes Charges/Coding Visit Charges Inpatient E&M: 65006 [facility] [[email or web address] Hosp L3
[2024-11-29] MEDS: hydrALAZINE 50 MG Tablet PO ×2 (09:27→20:26)
[2024-11-29] MEDS: Carvedilol 25 MG Tablet PO ×2 (09:28→17:10)
[2024-11-29] MEDS: Potassium Chloride Oral Tablet 10 MEQ PO ×2 (09:28→17:10)
[2024-11-29] MEDS: Losartan Potassium 100 MG Tablet PO (09:28)
[2024-11-29] MEDS: Multivitamins,Therapeutic Tablet 1 TABLET PO (09:28)
[2024-11-29] MEDS: PARoxetine 10 MG Tablet PO (09:28)
[2024-11-29] MEDS: APIXABAN 5 MG TABLET PO ×2 (09:28→20:26)
[2024-11-29] MEDS: cloNIDine HCl 0.1 MG Tablet PO ×2 (09:28→20:26)
--- NOTE | 2024-11-29 09:35 | RAD_ITS ---
EXAM: XR Chest, 1 View CLINICAL INDICATION: TECHNIQUE: Frontal view of the chest. COMPARISON: No relevant prior studies available. FINDINGS: LUNGS AND PLEURAL SPACES: Unremarkable. No consolidation. No pneumothorax. HEART: Unremarkable. No cardiomegaly. MEDIASTINUM: Unremarkable. Normal mediastinal contour. BONES/JOINTS: Unremarkable. No acute fracture. RAD/Chest 1 View (Portable) IMPRESSION: No acute cardiopulmonary process. Reading [facility]
[2024-11-29 09:46] LABS: Mucous, Urine 0 SEEN /hpf (<or=2+)
[2024-11-29 09:52] LABS: Color, Urine Yellow (Yellow); Glucose, Dipstick Normal (Normal); Ketone-Dipstick Negative (Negative); Leukocyte Esterase-Dipstick 500 /ul (Negative); Nitrite-Dipstick Positive (Negative); Occult Blood-Urine Negative /ul (Negative); Protein-Dipstick 15 mg/dl (Negative); Urine Bilirubin Dipstick Negative (Negative); Urine Clarity Clear (Clear); Urine Urobilinogen Normal (Normal)
[2024-11-29 10:08] LABS: Squamous Epithelial Cells - UA 10-25 SEEN /hpf (5-10)
[2024-11-29 10:09] LABS: Bacteria 3+ /hpf (None Seen); White Blood Cells 5-10 SEEN /hpf (0-5)
[2024-11-29 10:10] LABS: Red Blood Cells-Urine 0-5 SEEN /hpf (0-5); Transitional Epithelial - Ur 0 SEEN /hpf (0-5)
[2024-11-29] MEDS: 0.9% Normal Saline (100mL Bag) 100 ML 15 ML IV (12:27)
[2024-11-29] MEDS: Ceftriaxone 1 GM/50 ML BAG IV (12:27)
[2024-11-29] MEDS: 0.9% Saline Lock 10 ML Syringe IV (12:28)
--- NOTE | 2024-11-29 13:14 | CASEMGMT ---
Discharge Planning [facility] has accepted. Victoria Virk DC Planning Asst.
--- NOTE | 2024-11-29 14:23 | CASEMGMT ---
[facility] can accept patient. SW went to patient's room. Patient's daughter Shauna was present. SW let them both know TCU is full, but [facility] is able to take patient. They thanked ALAINA for the update. [facility]
[2024-11-29] MEDS: MELATONIN 3 MG TABLET PO (20:30)
[2024-11-30] VITALS (9 sets, daily range): BP systolic 100–134; BP diastolic 44–83; PULSE 61–74; RESP 16–20; TEMP 36.2–37.6; O2SAT 93–96
[2024-11-30] MEDS: Acetaminophen 325 MG Tablet 650 MG PO ×2 (01:50→17:34)
[2024-11-30] MEDS: Benzonatate 100 MG Capsule PO ×2 (02:37→17:34)
[2024-11-30] MEDS: Gabapentin 400 MG Capsule PO ×3 (04:42→22:12)
[2024-11-30] MEDS: Levothyroxine 75 MCG Tablet PO (04:42)
[2024-11-30 05:50] LABS: Absolute Lymphocyte Count 0.88 X10^3/uL (0.83-4.51); Absolute Neutrophil Count 3.2 X10^3/uL (2.0-7.7); Basophil# 0.01 X10^3/uL; Basophil% 0.2 % (0-1); Eosinophil# 0.17 X10^3/uL; Eosinophils% 3.5 % (0-5); Hematocrit 32.4 % (37-47); Hemoglobin 10.4 g/dL (12.0-15.0); Lymphocyte # 0.88 X10^3/ul (0.83-4.51); Lymphocyte % 18.2 % (19-41); Mean Corp Hgb Conc 32.1 g/dL (32-36); Mean Corpuscular Hgb 30.6 pg (27.0-32.0); Mean Corpuscular Volume 95.3 fL (81-99); Mean Platelet Vol. 10.3 fl (6.2-12.0); Monocyte% 10.3 % (0-10); NRBC Flagged by Analyzer 0 % (0-5); Neutrophil # 3.24 X10^3/uL (2.7-7.7); Platelet Count 126 K/mm3 (150-450); RBC Distribution Width CV 12.9 % (11.6-14.6); RBC Distribution Width SD 44.5 fl (35.1-43.9); White Blood Count 4.8 K/mm3 (4.4-11.0)
[2024-11-30 06:35] LABS: Anion Gap 11 (5-15); BUN 18 mg/dL (4-19); Calcium,Total 8.8 mg/dL (7.6-11.0); Carbon Dioxide 21.9 mmol/L (21.0-32.0); Chloride 104 mmol/L (98-108); Creatinine, Serum 0.77 mg/dL (0.70-1.20); EST Glomerular Filtration Rate 77 (>60); Estimated Creatinine Clearance 64.53 ml/min (50-250); Glucose 114 mg/dL (70-99); Potassium 4.2 mmol/L (3.3-5.1); Sodium Level 136 mmol/L (133-145)
[2024-11-30] MEDS: Multivitamins,Therapeutic Tablet 1 TABLET PO (09:48)
[2024-11-30] MEDS: Carvedilol 25 MG Tablet PO ×2 (09:48→17:33)
[2024-11-30] MEDS: APIXABAN 5 MG TABLET PO ×2 (09:49→22:12)
[2024-11-30] MEDS: Potassium Chloride Oral Tablet 10 MEQ PO ×2 (09:49→17:34)
[2024-11-30] MEDS: Losartan Potassium 100 MG Tablet PO (09:49)
[2024-11-30] MEDS: PARoxetine 10 MG Tablet PO (09:51)
[2024-11-30] MEDS: 0.9% Saline Lock 10 ML Syringe IV ×2 (10:02→22:13)
[2024-11-30] MEDS: Ceftriaxone 1 GM/50 ML BAG IV (10:02)
--- NOTE | 2024-11-30 10:55 | DS.PCM_ITS ---
Providers Date of Admission: 11/27/24 Primary Care Physician: Dr. Ever Kilgore MD Reason For Visit: WEAKNESS W/FALL AT HOME Diagnosis Discharge Diagnosis (1) Debility: Status: Acute Code(s): R53.81 - Other malaise (2) Weakness: Status: Acute Code(s): R53.1 - Weakness Plan Patient is an 79-year-old female who presented to [facility] ED on 11/26/2024 with weakness and a fall at home. 1. Acute on chronic debility ? Admit under observation status to PCU. PT/OT/case management consulted. Suspect worsening weakness is multifactorial from recent rounds of immunotherapy treatment in September followed by COVID infection. Suspect patient will need SNF on discharge but will follow-up therapy recommendations. 2. COVID-19 positive ? COVID-19 positive on this admit. However, patient reported having initial COVID diagnosis about 7 weeks ago. Chest x-ray unremarkable and patient stable on room air. Mild dry cough noted. No need for treatment with steroids or remdesivir. Symptomatic management. No need for isolation precautions at this time. 3. History of non-Hodgkin's lymphoma with recent immunotherapy treatment ? Follows with Dr. Quintero. Had 4 rounds of Rituxan infusion therapy done on a weekly basis in September. Plan was for repeat CT scan 6 weeks later to reevaluate her lesions. No inpatient needs, continue close outpatient follow- up. 4. Left cerebellar hypodensity ? CT brain without contrast called a 9.2 mm hypodensity in the superior left cerebellar peduncle. ED physician discussed with on-call neurology who suspected either subacute versus old stroke and recommended MRI brain for further evaluation. MRI brain showed no acute intracranial abnormality, only chronic small vessel ischemic changes. No further workup needed at this time. Chronic medical conditions: ? Class III obesity: BMI 41 on admit. Complicates hospital course, care and prognosis. ? 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 ? Hypothyroidism: Continue home Synthroid. ? Hypertension: Continue home Coreg, clonidine, hydralazine, and losartan. ? Depression: Continue home paroxetine. ? Neuropathy: Continue home gabapentin. ? GERD: Continue home omeprazole. ? History of bilateral remote knee replacements DVT prophylaxis: Not indicated, on Eliquis CODE STATUS: Full code, verified Expected disposition: Likely SNF, 1 to 2 days Total clinical time spent by myself addressing the patient's medical issues, reviewing all the data, and collaborating with patient's care team: 75 minutes. Medications at Discharge Home Medications potassium chloride 10 mEq tablet,extended release(part/cryst) 10 meq PO BID supplement 06/07/18 multivitamin with folic acid 400 mcg tablet (Thera) 1 tab PO DAILY vitamin 08/01/18 apixaban 5 mg tablet 5 mg PO BID blood thinner 08/13/20 levothyroxine 75 mcg tablet 75 mcg PO DAILY thyroid 07/30/22 carvedilol 25 mg tablet 25 mg PO BID blood pressure 03/24/24 gabapentin 400 mg capsule 400 mg PO TID nerve pain 03/24/24 hydralazine 50 mg tablet 50 mg PO BID blood pressure 03/24/24 paroxetine HCl 10 mg tablet 10 mg PO DAILY mental health 03/24/24 clonidine HCl 0.1 mg tablet 0.1 mg PO BID 30 days #60 tabs 03/26/24 losartan 100 mg tablet 100 mg PO DAILY 07/04/24 meclizine 25 mg tablet 25 mg PO TID 07/04/24 omeprazole 20 mg capsule,delayed release 20 mg PO DAILY PRN acid reflux 07/04/24 albuterol sulfate 90 mcg/actuation aerosol inhaler (Ventolin HFA) 2 puff inhalation Q4H PRN Wheezing 11/26/24 Weight / BMI Weight Weight: 106.7 kg Body Mass Index (BMI) 41.6 ABG / Lab / Microbiology Data 11/30/24 05:22 11/30/24 05:22 Laboratory: Laboratory Results - last 24 hr 11/30/24 05:22: WBC 4.8, RBC 3.40 L, Hgb 10.4 L, Hct 32.4 L, MCV 95.3, MCH 30.6, MCHC 32.1, RDW Std Deviation 44.5 H, RDW Coeff of Medhat 12.9, Plt Count 126 L, MPV 10.3, Immature Gran % (Auto) 0.800, Neut % (Auto) 67.0, Lymph % (Auto) 18.2 L, M salo % (Auto) 10.3 H, Eos % (Auto) 3.5, Baso % (Auto) 0.2, Absolute Neuts (auto) 3.2, Absolute Lymphs (auto) 0.88, Nucleated RBC % 0, Sodium 136, Potassium 4.2, Chloride 104, Carbon Dioxide 21.9, Anion Gap 11, BUN 18, Creatinine 0.77, Estim Creat Clear Calc 64.53, Est GFR (MDRD) Non-Af 77, BUN/Creatinine Ratio 23.0 H, G lucose 114 H, Calcium 8.8 Microbiology: Microbiology 11/29/24 09:14 Urine, Clean Catch Urine Culture - Final Mixed Gram Pos & Gram Neg Org 11/29/24 10:00 Mucosa - Nasopharyngeal Respiratory Panel (PCR) - Final 11/26/24 14:05 Blood Culture (Wb) - Venous Blood Culture - Preliminary No growth in 48 hours. 11/26/24 14:05 Blood Culture (Wb) - Venous Blood Culture - Preliminary No growth in 48 hours. 11/26/24 13:40 Mucosa - Nose SARS-CoV-2, Influenza & RSV (PCR) - Final SARS-CoV-2 (COVID 19 PCR) Meaningful Use Info Ischemic Stroke Statin Dosing Therapy Reference: STATIN DOSE THERAPY REFERENCE: * Patients > 75 years receive moderate or high dose statin therapy. * Patients 75 years or YOUNGER should receive HIGH intensity statin dose unless contraindicated. You will be required to document reason for non-treatment if statin daily dose does not meet guidelines. HIGH DOSE STATIN THERAPY DAILY Atorvastatin > than or = to 40 mg Rosuvastatin > than or = to 20 mg Amlodipine + Atorvastatin > than or = to 2.5/40 mg Ezetimibe + Simvastatin 10/80 mg Simvastatin 80mg Discharge Plan Admission Admit Date/Time: 11/27/24 11:55 Attending Provider: Jaxson Meehan Primary Care Provider: Ever Kilgore Consulting Providers: Jaxson Meehan; Tom Miguel Discharge Orders/Prescriptions Prescriptions: No Action potassium chloride 10 MEQ tablet 10 meq PO BID multivitamin with folic acid [Thera] 1 TABLET tablet 1 tab PO DAILY apixaban 5 MG tablet 5 mg PO BID levothyroxine 75 mcg Tablet 75 mcg PO DAILY carvedilol 25 mg tablet 25 mg PO BID paroxetine HCl 10 mg tablet 10 mg PO DAILY gabapentin 400 mg capsule 400 mg PO TID hydralazine 50 mg tablet 50 mg PO BID Patient Comments: PT STATES HER DR SAID IF HER BLOOD PRESSURE IS HIGH, TAKE AN EXTRA DOSE. clonidine HCl 0.1 mg Tablet 0.1 mg PO BID 30 Days Qty: 60 0RF albuterol sulfate [Ventolin HFA] 90 mcg/actuation HFA aerosol inhaler 2 puff inhalation Q4H PRN (Reason: Wheezing) Rx Instructions: with spacer omeprazole 20 mg capsule,delayed release(DR/EC) 20 mg PO DAILY PRN (Reason: acid reflux) meclizine 25 mg tablet 25 mg PO TID Patient Comments: PT STATES SHE SHOULD TAKE THIS BUT DOESN'T, ONLY IF SHE IS DIZZY. losartan 100 mg tablet 100 mg PO DAILY Referrals / Follow Up: Ever Kilgore MD [Primary Care Provider] -
--- NOTE | 2024-11-30 11:23 | PCM.PN.HOSP ---
Reason for Visit Reason for Visit: Diagnoses Weakness (11/27/24) Other malaise (11/27/24) Subjective Subjective Saw patient at bedside this morning. Patient was mildly fatigued appearing but otherwise sitting back comfortably in bed, conversing normally and in no acute distress. She reported continuing to feel more weak than her normal but otherwise denied any new concerns this morning. Objective Data Objective Data Vital Signs: Vital Signs Temp Pulse Resp BP Pulse Ox O2 Del Method 97.9 F 65 16 107/44 L 96 Room Air 11/30/24 09:44 11/30/24 09:44 11/30/24 09:44 11/30/24 09:49 11/30/24 09:44 11/30/24 09:44 Oxygen Delivery Method Room Air Weight: 106.7 kg Body Mass Index (BMI) 41.6 Intake & Output: Intake and Output for Last 24 Hours 11/29/24 11/29/24 11/30/24 00:59 23:59 23:59 Intake Total 1040 / 1040 65.25 / 65.25 500 / 500 Output Total 625 / 875 1325 / 1325 500 / 500 Balance 415 / 165 -1259.75 / -1259.75 0 / 0 Lab / Micro Data 11/30/24 05:22 11/30/24 05:22 Labs: Laboratory Results - last 24 hr 11/30/24 05:22: WBC 4.8, RBC 3.40 L, Hgb 10.4 L, Hct 32.4 L, MCV 95.3, MCH 30.6, MCHC 32.1, RDW Std Deviation 44.5 H, RDW Coeff of [place] 12.9, Plt Count 126 L, MPV 10.3, Immature Gran % (Auto) 0.800, Neut % (Auto) 67.0, Lymph % (Auto) 18.2 L, [place] % (Auto) 10.3 H, Eos % (Auto) 3.5, Baso % (Auto) 0.2, Absolute Neuts (auto) 3.2, Absolute Lymphs (auto) 0.88, Nucleated RBC % 0, Sodium 136, Potassium 4.2, Chloride 104, Carbon Dioxide 21.9, Anion Gap 11, BUN 18, Creatinine 0.77, Estim Creat Clear Calc 64.53, Est GFR (MDRD) Non-Af 77, BUN/Creatinine Ratio 23.0 H, Glucose 114 H, Calcium 8.8 Micro: Microbiology 11/29/24 09:14 Urine, Clean Catch Urine Culture - Final Mixed Gram Pos & Gram Neg Org 11/29/24 10:00 Mucosa - Nasopharyngeal Respiratory Panel (PCR) - Final 11/26/24 14:05 Blood Culture (Wb) - Venous Blood Culture - Preliminary No growth in 48 hours. 11/26/24 14:05 Blood Culture (Wb) - Venous Blood Culture - Preliminary No growth in 48 hours. 11/26/24 13:40 Mucosa - Nose SARS-CoV-2, Influenza & RSV (PCR) - Final SARS-CoV-2 (COVID 19 PCR) Rhythm Strip Rhythm Strip: Sinus Rhythm Rate: 68 Ectopy: None Physical Exam Const alert, oriented x3 and no apparent distress Constitutional Narrative: Elderly female, class III obesity, mildly fatigued appearing but otherwise sitting back comfortably in bed, conversing normally, in no acute distress. General Appearance: cooperative and comfortable HEENT normocephalic, head/scalp atraumatic, hearing grossly normal bilaterally, nasal mucous membranes and turbinates normal and moist oral mucous membranes Eyes PERRL, EOMs intact bilaterally and conjunctivae normal Neck full ROM Chest inspection of chest normal Resp normal respiratory effort, no use of accessory muscles and clear to auscultation bilaterally Cardio regular rate, regular rhythm, no murmurs and peripheral pulses 2+ throughout GI normal to inspection, nondistended, normoactive bowel sounds, soft to palpation, non-tender and non-distended Back/Spine normal ROM Extremity normal to inspection, full ROM and no pedal edema Skin no rashes or lesions noted Neuro moves all extremities and no focal motor deficits Speech: speech normal Psych mental status grossly normal Assessment & Plan Assessment/Plan (1) Debility: (2) Weakness: PLAN: Plan Patient is an 79-year-old female who presented to [facility] ED on 11/26/2024 with weakness and a fall at home. 1. Acute on chronic debility ? PT/OT/case management following. Suspect worsening weakness is multifactorial from recent rounds of immunotherapy treatment in September followed by COVID infection. Planning for SNF on discharge and if patient remains stable, will be good for discharge to SNF on 12/01. 2. COVID-19 positive ? COVID-19 positive on this admit. However, patient reported having initial COVID diagnosis about 7 weeks ago. Chest x-ray unremarkable and patient stable on room air. Mild dry cough noted. No need for treatment with steroids or remdesivir. Symptomatic management. No need for isolation precautions at this time. 3. Acute cystitis ? Patient reported UTI symptoms and intermittent fever/chills so UA was obtained on 11/29 and showed positive nitrites, 500 leukocyte esterase, 3+ bacteria. Urine culture pending. No prior urine cultures available for comparison. Continue treatment with IV ceftriaxone for now, narrow as able. 4. History of non-Hodgkin's lymphoma with recent immunotherapy treatment ? Follows with Dr. Quintero. Had 4 rounds of Rituxan infusion therapy done on a weekly basis in September. Plan was for repeat CT scan 6 weeks later to reevaluate her lesions. No inpatient needs, continue close outpatient follow-up. 5. Left cerebellar hypodensity ? CT brain without contrast called a 9.2 mm hypodensity in the superior left cerebellar peduncle. ED physician discussed with on-call neurology who suspected either subacute versus old stroke and recommended MRI brain for further evaluation. MRI brain showed no acute intracranial abnormality, only chronic small vessel ischemic changes. No further workup needed at this time. Chronic medical conditions: ? Class III obesity: BMI 41 on admit. Complicates hospital course, care and prognosis. ? 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 ? Hypothyroidism: Continue home Synthroid. ? Hypertension: Continue home Coreg, clonidine, hydralazine, and losartan. ? Depression: Continue home paroxetine. ? Neuropathy: Continue home gabapentin. ? GERD: Continue home omeprazole. ? History of bilateral remote knee replacements DVT prophylaxis: Not indicated, on Eliquis CODE STATUS: Full code, verified Expected disposition: SNF, 1 to 2 days Total clinical time spent by myself addressing the patient's medical issues, reviewing all the data, and collaborating with patient's care team: 35 minutes. Charges/Coding Visit Charges Inpatient E&M: 96554 Subs Hosp L2
[2024-11-30] MEDS: hydrALAZINE 50 MG Tablet PO (22:11)
[2024-11-30] MEDS: cloNIDine HCl 0.1 MG Tablet PO (22:12)
[2024-12-01 03:00] VITALS: BP 143/73; PULSE 66; RESP 18; TEMP 37.4; O2SAT 95
[2024-12-01] MEDS: Levothyroxine 75 MCG Tablet PO (05:37)
[2024-12-01] MEDS: Gabapentin 400 MG Capsule PO (05:39)
[2024-12-01 06:23] LABS: Absolute Lymphocyte Count 0.71 X10^3/uL (0.83-4.51); Absolute Neutrophil Count 3.2 X10^3/uL (2.0-7.7); Eosinophil# 0.23 X10^3/uL; Eosinophils% 4.9 % (0-5); Hemoglobin 10.8 g/dL (12.0-15.0); Lymphocyte # 0.71 X10^3/ul (0.83-4.51); Lymphocyte % 15.1 % (19-41); Mean Corp Hgb Conc 31.8 g/dL (32-36); Mean Corpuscular Hgb 30.3 pg (27.0-32.0); Mean Corpuscular Volume 95.2 fL (81-99); Mean Platelet Vol. 10.5 fl (6.2-12.0); Monocyte% 10.6 % (0-10); NRBC Flagged by Analyzer 0 % (0-5); Neutrophil # 3.22 X10^3/uL (2.7-7.7); Neutrophil % 68.3 % (47-70); Platelet Count 129 K/mm3 (150-450); RBC Distribution Width CV 12.8 % (11.6-14.6); RBC Distribution Width SD 44.6 fl (35.1-43.9); Red Blood Count 3.57 M/mm3 (4.2-5.4); White Blood Count 4.7 K/mm3 (4.4-11.0)
[2024-12-01 07:04] LABS: Anion Gap 12 (5-15); BUN 16 mg/dL (4-19); BUN/Creat Ratio 23.4 RATIO (10-20); Calcium,Total 9.2 mg/dL (7.6-11.0); Chloride 104 mmol/L (98-108); EST Glomerular Filtration Rate 87 (>60); Estimated Creatinine Clearance 64.53 ml/min (50-250); Glucose 106 mg/dL (70-99); Potassium 4.7 mmol/L (3.3-5.1); Sodium Level 138 mmol/L (133-145)
[2024-12-01] MEDS: Losartan Potassium 100 MG Tablet PO (08:14)
[2024-12-01] MEDS: PARoxetine 10 MG Tablet PO (08:14)
[2024-12-01 08:15] VITALS: PULSE 71
[2024-12-01] MEDS: hydrALAZINE 50 MG Tablet PO (08:15)
[2024-12-01] MEDS: Potassium Chloride Oral Tablet 10 MEQ PO (08:15)
[2024-12-01] MEDS: APIXABAN 5 MG TABLET PO (08:16)
[2024-12-01] MEDS: Multivitamins,Therapeutic Tablet 1 TABLET PO (08:16)
[2024-12-01] MEDS: Carvedilol 25 MG Tablet PO (08:16)
[2024-12-01] MEDS: cloNIDine HCl 0.1 MG Tablet PO (08:16)
[2024-12-01] MEDS: Ceftriaxone 1 GM/50 ML BAG IV (08:17)
--- NOTE | 2024-12-01 11:57 | PCM.TXEXTCAR ---
Diet Diet Order/Speech Therapy: 11/30/24 16:09 Diet: Regular - General Food consistency:: Regular Liquid Consistency:: Regular/Thin Routine Orders/Code Status Routine Lab Work: CBC and BMP Code Status: Full Code DC O2, CPAP, BIPAP needs Home O2 Discharge instructions: No Therapies Physical Therapy: Eval and Treat Occupational Therapy: Eval and Treat Problem/Diagnosis (1) Debility: Status: Acute Code(s): R53.81 - Other malaise (2) Weakness: Status: Acute Code(s): R53.1 - Weakness Allergies/Procedures Done in Hospital Allergies COVID-19 vaccine, mRNA, [id number], Allergy (Verified 11/26/24 11:17) Anaphylaxis erythromycin base (Erythromycin Base) Allergy (Verified 11/26/24 11:17) Rash lisinopril Allergy (Verified 11/26/24 11:17) Swelling venom-wasp (wasp) Allergy (Verified 11/26/24 11:17) NEEDS FOLLOW-UP amlodipine Adverse Reaction (Verified 11/26/24 11:17) Swelling latex Adverse Reaction (Verified 11/26/24 11:17) Swelling Procedures: None Type of Care/Length of Stay Estimated LOS: Convalescent Care Less Than 30 days Type of Care Needed: Skilled Rehab Potential: Fair Prognosis: Fair Additional Orders/Day of Discharge Day of Discharge: 12/01/24 Dietary and Speech Recommendations Dietitian Recommendations/Changes: Will adjust to liberal regular diet d/t pts treatment with non-hodgkin's lymphoma. Will monitor weight trends. Discharge Plan Admission Admit Date/Time: 11/27/24 11:55 Attending Provider: Kenyon Joiner Primary Care Provider: Ever Kilgore Consulting Providers: Jaxson Meehan; Tom Miguel Discharge Orders/Prescriptions Prescriptions: New cefdinir 300 mg capsule 300 mg PO BID Qty: 4 0RF Continued potassium chloride 10 MEQ tablet 10 meq PO BID multivitamin with folic acid [Thera] 1 TABLET tablet 1 tab PO DAILY apixaban 5 MG tablet 5 mg PO BID levothyroxine 75 mcg Tablet 75 mcg PO DAILY carvedilol 25 mg tablet 25 mg PO BID paroxetine HCl 10 mg tablet 10 mg PO DAILY gabapentin 400 mg capsule 400 mg PO TID hydralazine 50 mg tablet 50 mg PO BID Patient Comments: PT STATES HER DR SAID IF HER BLOOD PRESSURE IS HIGH, TAKE AN EXTRA DOSE. clonidine HCl 0.1 mg Tablet 0.1 mg PO BID 30 Days Qty: 60 0RF albuterol sulfate [Ventolin HFA] 90 mcg/actuation HFA aerosol inhaler 2 puff inhalation Q4H PRN (Reason: Wheezing) Rx Instructions: with spacer omeprazole 20 mg capsule,delayed release(DR/EC) 20 mg PO DAILY PRN (Reason: acid reflux) meclizine 25 mg tablet 25 mg PO TID Patient Comments: PT STATES SHE SHOULD TAKE THIS BUT DOESN'T, ONLY IF SHE IS DIZZY. losartan 100 mg tablet 100 mg PO DAILY Referrals / Follow Up: Ever Kilgore MD [Primary Care Provider] - Disposition Disposition (needs filled in before D/C Order can be placed): [facility]
--- NOTE | 2024-12-01 13:34 | PHA.DC.MR.R ---
Pharmacy [place] Med Reconciliation Pharmacy Service has performed discharge medication reconciliation for this patient. The patient's discharge medication list was reviewed for discrepancies and discrepancies were resolved. Medications at Discharge Home Medications potassium chloride 10 mEq tablet,extended release(part/cryst) 10 meq PO BID supplement 06/07/18 multivitamin with folic acid 400 mcg tablet (Thera) 1 tab PO DAILY vitamin 08/01/18 apixaban 5 mg tablet 5 mg PO BID blood thinner 08/13/20 levothyroxine 75 mcg tablet 75 mcg PO DAILY thyroid 07/30/22 carvedilol 25 mg tablet 25 mg PO BID blood pressure 03/24/24 gabapentin 400 mg capsule 400 mg PO TID nerve pain 03/24/24 hydralazine 50 mg tablet 50 mg PO BID blood pressure 03/24/24 paroxetine HCl 10 mg tablet 10 mg PO DAILY mental health 03/24/24 clonidine HCl 0.1 mg tablet 0.1 mg PO BID 30 days #60 tabs 03/26/24 losartan 100 mg tablet 100 mg PO DAILY 07/04/24 meclizine 25 mg tablet 25 mg PO TID 07/04/24 omeprazole 20 mg capsule,delayed release 20 mg PO DAILY PRN acid reflux 07/04/24 albuterol sulfate 90 mcg/actuation aerosol inhaler (Ventolin HFA) 2 puff inhalation Q4H PRN Wheezing 11/26/24 cefdinir 300 mg capsule 300 mg PO BID #4 caps 12/01/24
--- NOTE | 2024-12-01 13:43 | CASEMGMT ---
Patient is ready for discharge to [facility]. SW completed a 7000 in HENS system. Physicians will transport patient via wheelchair van. Azalea LOERA
[2024-12-01 14:00] VITALS: O2SAT 96
--- NOTE | 2024-12-01 14:30 | CASEMGMT ---
Discharge Planning Discharge orders, signed med list, and transport time sent to [facility]. Physicians will transport pt by wheelchair. Nursing, SW, pt, and her daughter (Shauna) updated. Shauna will update pts son (Josse). Victoria Virk DC Planning Asst.
--- NOTE | 2024-12-01 15:50 | DS.PCM_ITS ---
Providers Date of Admission: 11/27/24 Primary Care Physician: Dr. Ever Kilgore MD Reason For Visit: WEAKNESS W/FALL AT HOME Diagnosis Discharge Diagnosis (1) Debility: Status: Acute Code(s): R53.81 - Other malaise (2) Weakness: Status: Acute Code(s): R53.1 - Weakness Medications at Discharge Home Medications potassium chloride 10 mEq tablet,extended release(part/cryst) 10 meq PO BID supplement 06/07/18 multivitamin with folic acid 400 mcg tablet (Thera) 1 tab PO DAILY vitamin 08/01/18 apixaban 5 mg tablet 5 mg PO BID blood thinner 08/13/20 levothyroxine 75 mcg tablet 75 mcg PO DAILY thyroid 07/30/22 carvedilol 25 mg tablet 25 mg PO BID blood pressure 03/24/24 gabapentin 400 mg capsule 400 mg PO TID nerve pain 03/24/24 hydralazine 50 mg tablet 50 mg PO BID blood pressure 03/24/24 paroxetine HCl 10 mg tablet 10 mg PO DAILY mental health 03/24/24 clonidine HCl 0.1 mg tablet 0.1 mg PO BID 30 days #60 tabs 03/26/24 losartan 100 mg tablet 100 mg PO DAILY 07/04/24 meclizine 25 mg tablet 25 mg PO TID 07/04/24 omeprazole 20 mg capsule,delayed release 20 mg PO DAILY PRN acid reflux 07/04/24 albuterol sulfate 90 mcg/actuation aerosol inhaler (Ventolin HFA) 2 puff inhalation Q4H PRN Wheezing 11/26/24 cefdinir 300 mg capsule 300 mg PO BID #4 caps 12/01/24 Hospital Course Operations None Procedures None Summary of Care Provided Minutes Spent on Discharge: 35 Hospital Course: Per HPI: AYAZ HERNANDEZ, is a 79 F who presented to [facility] ED on 11/26/2024 with weakness and a fall at home. Patient lives at home alone, does have family that lives close by. Patient has history of non-Hodgkin's lymphoma, follows with Dr. Quintero. She initially completed 2 rounds of Rituxan immunotherapy in 2021. She was found to have progression of disease on recent CT scans and underwent Rituxan infusions weekly for 4 weeks in September. During treatment she generally felt fatigued and had frequent nausea with decreased p.o. intake. Shortly after completing treatment, she was diagnosed with COVID. Since then she has continued to feel weak and has not been able to do much around the house for herself. Last night she had a subjective fever of 101F with associated chills. She attempted to get out of bed to take off some close because she was sweating so much and she was so weak that she fell to the ground. Did not hit her head. She then laid on the ground all night because of her weakness. She called family this morning who then called EMS to bring her into the hospital. In the ED she was hypertensive to the 190 systolic but otherwise hemodynamically stable on room air. She did spike a fever of 101.9F later this evening. Labs are fairly benign. Chest x-ray was nonacute. CT brain showed no acute bleed, did show an area concerning for subacute versus old stroke. MRI brain was obtained and showed only chronic changes, no acute changes. Patient has required SNF placement in the past and would be agreeable to SNF placement at this time as well. Given these findings, hospitalist was contacted for admission. I saw the patient at bedside in the ED, daughter and son-in-law are present. Patient was mildly fatigued appearing but otherwise sitting back comfortably in bed, conversing normally, in no acute distress. She denied any lightheadedness or dizziness at rest. She felt generally weak but denied any focal right or left-sided weakness. She denied any fevers or chills currently. Denied any chest pain or shortness of breath. Denied any other acute concerns at this time. Hospital Course: 1. Acute on chronic debility ? PT/OT/case management following. Suspect worsening weakness is multifactorial from recent rounds of immunotherapy treatment in September followed by COVID infection. Planning for SNF on discharge and if patient remains stable, will be good for discharge to SNF on 12/01. 12/01/2024: I discussed with the plan for discharge today she expressed understanding of the risk benefits of going to the shelter and is okay with going today. 2. COVID-19 positive ? COVID-19 positive on this admit. However, patient reported having initial COVID diagnosis about 7 weeks ago. Chest x-ray unremarkable and patient stable on room air. Mild dry cough noted. No need for treatment with steroids or remdesivir. Symptomatic management. No need for isolation precautions at this time. 12/01/2024: Her COVID test remains positive despite having had COVID several weeks ago. I do not think that this is an active diagnosis and she does not need to be in precautions. She is not hypoxic and does not need any treatment at this time 3. Acute cystitis ? Patient reported UTI symptoms and intermittent fever/chills so UA was obtained on 11/29 and showed positive nitrites, 500 leukocyte esterase, 3+ bacteria. Urine culture pending. No prior urine cultures available for comparison. Continue treatment with IV ceftriaxone for now, narrow as able. 12/01/2024: Urine culture with mixed gram-positive gram-negative indicating possible contamination. Given age and weakness, as well as her urine sample being positive will complete treatment with cefdinir for 2 more days. 4. History of non-Hodgkin's lymphoma with recent immunotherapy treatment ? Follows with Dr. Quintero. Had 4 rounds of Rituxan infusion therapy done on a weekly basis in September. Plan was for repeat CT scan 6 weeks later to reevaluate her lesions. No inpatient needs, continue close outpatient follow- up. 5. Left cerebellar hypodensity ? CT brain without contrast called a 9.2 mm hypodensity in the superior left cerebellar peduncle. ED physician discussed with on-call neurology who suspected either subacute versus old stroke and recommended MRI brain for further evaluation. MRI brain showed no acute intracranial abnormality, only chronic small vessel ischemic changes. No further workup needed at this time. Chronic medical conditions: ? Class III obesity: BMI 41 on admit. Complicates hospital course, care and prognosis. ? 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 ? Hypothyroidism: Continue home Synthroid. ? Hypertension: Continue home Coreg, clonidine, hydralazine, and losartan. ? Depression: Continue home paroxetine. ? Neuropathy: Continue home gabapentin. ? GERD: Continue home omeprazole. ? History of bilateral remote knee replacements Physical Exam Narrative General: Alert, Oriented x3, Cooperative, No apparent distress HEENT: Atraumatic, PERRLA, EOMI, Normocephalic Oral: Moist Mucosa Neck: Supple, No JVD Lungs: Diminished, normal air movement, No rhonchi, No wheeze, No rales Cardiovascular: Regular rate, Regular Rhythm, Normal S1, Normal S2, No murmurs Abdomen: Soft, Non Tender, Non-Distended, No Hepato-splenomegaly Extremities: No edema, Capillary Refill Less than 3 Seconds Skin: No rashes, No breakdown Musculoskeletal: No Tenderness to Palpation of Joints or Extremities Neurological: No focal neurological deficits, moves all extremities Psych/Mental Status: Flat Weight / BMI Weight Weight: 235 lb 3.732 oz Body Mass Index (BMI) 41.6 ABG / Lab / Microbiology Data 12/01/24 05:23 12/01/24 05:23 Laboratory: Laboratory Results - last 24 hr 12/01/24 05:23: WBC 4.7, RBC 3.57 L, Hgb 10.8 L, Hct 34.0 L, MCV 95.2, MCH 30.3, MCHC 31.8 L, RDW Std Deviation 44.6 H, RDW Coeff of [place] 12.8, Plt Count 129 L, MPV 10.5, Immature Gran % (Auto) 1.100 H, Neut % (Auto) 68.3, Lymph % (Auto) 15.1 L, [place] % (Auto) 10.6 H, Eos % (Auto) 4.9, Baso % (Auto) 0.0, Absolute Neuts (auto) 3.2, Absolute Lymphs (auto) 0.71 L, Nucleated RBC % 0, Sodium 138, Potassium 4.7, Chloride 104, Carbon Dioxide 23.0, Anion Gap 12, BUN 16, Creatinine 0.70, Estim Creat Clear Calc 64.53, Est GFR (MDRD) Non-Af 87, B UN/Creatinine Ratio 23.4 H, Glucose 106 H, Calcium 9.2 Microbiology: Microbiology 11/26/24 14:05 Blood Culture (Wb) - Venous Blood Culture - Final No growth in 5 days. 11/26/24 14:05 Blood Culture (Wb) - Venous Blood Culture - Final No growth in 5 days. 11/29/24 09:14 Urine, Clean Catch Urine Culture - Final Mixed Gram Pos & Gram Neg Org 11/29/24 10:00 Mucosa - Nasopharyngeal Respiratory Panel (PCR) - Final 11/26/24 13:40 Mucosa - Nose SARS-CoV-2, Influenza & RSV (PCR) - Final SARS-CoV-2 (COVID 19 PCR) D/C Instructions DC O2, CPAP, BIPAP Needs Home O2 Discharge instructions: No Meaningful Use Info Meaningful Use Meaningful Use Diagnoses (Choose all that apply): None applicable Ischemic Stroke Statin Dosing Therapy Reference: STATIN DOSE THERAPY REFERENCE: * Patients > 75 years receive moderate or high dose statin therapy. * Patients 75 years or YOUNGER should receive HIGH intensity statin dose unless contraindicated. You will be required to document reason for non-treatment if statin daily dose does not meet guidelines. HIGH DOSE STATIN THERAPY DAILY Atorvastatin > than or = to 40 mg Rosuvastatin > than or = to 20 mg Amlodipine + Atorvastatin > than or = to 2.5/40 mg Ezetimibe + Simvastatin 10/80 mg Simvastatin 80mg Discharge Plan Admission Admit Date/Time: 11/27/24 11:55 Attending Provider: Kenyon Joiner Primary Care Provider: Ever Kilgore Consulting Providers: Jaxson Meehan; Tom Miguel Discharge Orders/Prescriptions Prescriptions: New cefdinir 300 mg capsule 300 mg PO BID Qty: 4 0RF Continued potassium chloride 10 MEQ tablet 10 meq PO BID multivitamin with folic acid [Thera] 1 TABLET tablet 1 tab PO DAILY apixaban 5 MG tablet 5 mg PO BID levothyroxine 75 mcg Tablet 75 mcg PO DAILY carvedilol 25 mg tablet 25 mg PO BID paroxetine HCl 10 mg tablet 10 mg PO DAILY gabapentin 400 mg capsule 400 mg PO TID hydralazine 50 mg tablet 50 mg PO BID Patient Comments: PT STATES HER DR SAID IF HER BLOOD PRESSURE IS HIGH, TAKE AN EXTRA DOSE. clonidine HCl 0.1 mg Tablet 0.1 mg PO BID 30 Days Qty: 60 0RF albuterol sulfate [Ventolin HFA] 90 mcg/actuation HFA aerosol inhaler 2 puff inhalation Q4H PRN (Reason: Wheezing) Rx Instructions: with spacer omeprazole 20 mg capsule,delayed release(DR/EC) 20 mg PO DAILY PRN (Reason: acid reflux) meclizine 25 mg tablet 25 mg PO TID Patient Comments: PT STATES SHE SHOULD TAKE THIS BUT DOESN'T, ONLY IF SHE IS DIZZY. losartan 100 mg tablet 100 mg PO DAILY Referrals / Follow Up: Ever Kilgore MD [Primary Care Provider] - Disposition Disposition (needs filled in before D/C Order can be placed): [facility] Charges/Coding Visit Charges Inpatient E&M: 88720 Disch Hosp >30min
== END 2024-12-01 15:45 | disposition skilled nursing facility (03) | DRG 689 ==
LOC: ED 16:15 → PCU 16:58
PROVIDERS: Internal Medicine; Admitting Provider Hospitalist; Emergency Provider Emergency Medicine; PCP Family Medicine; Visit Provider Family Medicine
DX: N30.00 Acute cystitis without hematuria (principal); U07.1 COVID-19; C85.90 Non-Hodgkin lymphoma, unspecified, unspecified site; Z68.41 Body mass index [BMI] 40.0-44.9, adult; D64.9 Anemia, unspecified; E03.9 Hypothyroidism, unspecified; K21.9 Gastro-esophageal reflux disease without esophagitis; I10 Essential (primary) hypertension; F32.A Depression, unspecified; G62.9 Polyneuropathy, unspecified; M15.9 Polyosteoarthritis, unspecified; F41.9 Anxiety disorder, unspecified; E66.813 Obesity, class 3; Z79.01 Long term (current) use of anticoagulants; Z79.899 Other long term (current) drug therapy; Z86.718 Personal history of other venous thrombosis and embolism
CPT/HCPCS: 36415; 70450; 70551; 71045; 71046; 73564; 80048; 80053; 81001; 82550; 83605; 83735; 84100; 84484; 85025; 85027; 87040; 87086; 87088; 87631; 87633; 93005; 94668; 97110; 97116; 97162; 97166; 97530; 97535; 99285; A4216

== ENCOUNTER 2025-04-01 12:34 | Inpatient (IN) | payer MEDICARE, OTHER, SELFPAY ==
[2025-04-01] VITALS (15 sets, daily range): BP systolic 126–173; BP diastolic 59–98; PULSE 66–72; RESP 14–20; TEMP 36.6–36.8; O2SAT 96–100; BMI 43.9; BMI 44.4
[2025-04-01 14:41] LABS: Hematocrit 41.1 % (37-47); Hemoglobin 13.4 g/dL (12.0-15.0); Immature Granulocytes Count 0.010 X10^3/uL (0.0-0.0); Mean Corp Hgb Conc 32.6 g/dL (32-36); Mean Corpuscular Volume 96.7 fL (81-99); Mean Platelet Vol. 10.1 fl (6.2-12.0); NRBC Flagged by Analyzer 0 % (0-5); Platelet Count 147 K/mm3 (150-450); RBC Distribution Width CV 12.5 % (11.6-14.6); RBC Distribution Width SD 44.5 fl (35.1-43.9); Red Blood Count 4.25 M/mm3 (4.2-5.4); White Blood Count 6.0 K/mm3 (4.4-11.0)
--- NOTE | 2025-04-01 15:00 | CT_ITS ---
PROCEDURE: STROKE CTA HEAD AND NECK W/CON 04/01/2025 REASON FOR EXAM: NEURO DEFICIT, ACUTE, STROKE SUSPECTED TECHNIQUE: STROKE CTA HEAD AND NECK W/CON Multiplanar Sagittal and Coronal images were obtained. 3D and MIP multiplanar post processing was performed. CONTRAST: Isovue 370 VOLUME: 100 mL One or more dose reduction techniques were used (e.g., Automated exposure control, adjustment of the mA and/or kV according to patient size, use of iterative reconstruction technique). RADIATION DOSE SUMMARY: DLP: 1549.45 mGycm COMPARISON: Brain MRI and CT head dated 11/26/2024. FINDINGS: CTA HEAD: Patent intracranial arterial vasculature. No large vessel occlusion, flow- limiting stenosis, saccular aneurysm, or vascular malformation identified. Major dural venous sinuses appear patent. CTA NECK: Conventional aortic arch branching. Bilateral cervical carotid and codominant vertebral arteries are patent without significant stenosis. No luminal irregularity to suggest aneurysm or dissection. NONCONTRAST CT HEAD: No acute intracranial hemorrhage, extra-axial collection, mass effect or evidence of acute infarct. Mild age-appropriate generalized brain parenchymal volume loss, and chronic small-vessel ischemic changes in the supratentorial white matter. Orbital contents are unremarkable. Intact skull base and calvarium. Poor dentition with edentulous maxilla. Scattered mucosal thickening mainly within the posterior right ethmoid air cells and floor of left maxillary sinus. No mastoid effusions. Degenerative changes of the cervical spine. CT/STROKE CTA Head AND Neck W/Con IMPRESSION: 1. Widely patent intracranial and cervical arterial vasculature. 2. No evidence of acute intracranial pathology. 3. Mild volume loss and chronic microangiopathic changes. Reading Location: [id number]
--- NOTE | 2025-04-01 15:01 | ED.VIS.STROK ---
HPI History of Present Illness Chief Complaint: Weakness Detail of Chief Complaint: Diplopia, balance is off and not as alert per daughter Informant: patient and family Onset/Context/Timing Onset: Days (2 to 4 days prior to presentation) Context: Sudden Onset Timing: Continuous Quality and Location: Positive for Difficulty with Ambulation and - (Diplopia) Onset: 2 to 4 days ago. Daughter states she was not aware until last evening. Current Severity: Mild Maximum Severity: Moderate Worsened by: Nothing Relieved by: Nothing Associated Symptoms Associated Symptoms: Positive for Nausea; Negative for Headache, Vomiting or Chest Pain Narrative Narrative: Patient is an 79-year-old woman with multiple medical problems. She presents with her balance being off and double vision that started between 2 to 4 days ago. Patient cannot be more specific. She does have a history of benign paroxysmal positional vertigo. She states this is different. The dizziness is defined as her balance being off is continuous. She states 2 to 3 days ago she was having trouble reading text on the computer because she would see double or double shadows. She denies headache. She denies loss of vision. She denies ringing or ears decreased hearing. There is been no slurred speech or difficulty expressing herself. She has numbness right lower extremity due to nerve root issue in her back. She also has weakness in that leg due to back issues. Patient denies cardiac or respiratory symptoms. She denies any GI symptoms other than some mild nausea. She does admit that she has problems with circulation in her legs and stated it is bad . Prior similar symptoms: No Recent Illness/Hospitalization: [facility] Medical History DVT (deep venous thrombosis) Post-menopausal Dyspnea History of stress test Ovarian tumor Anticoagulant long-term use Non Hodgkin's lymphoma Dehiscence of surgical wound GERD (gastroesophageal reflux disease) Restless leg syndrome Peripheral neuropathy Osteoarthritis Hypertension Morbid obesity with BMI of 40.0-44.9, adult Home Medications ?Medication ?Instructions ?Recorded ?Last Taken ?Type potassium chloride 10 mEq 10 meq PO BID supplement 06/07/18 11/25/24 History tablet,extended release(part/cryst) multivitamin with folic acid 400 1 tab PO DAILY vitamin 08/01/18 11/25/24 History mcg tablet (Thera) apixaban 5 mg tablet 5 mg PO BID blood thinner 08/13/20 11/25/24 History levothyroxine 75 mcg tablet 75 mcg PO DAILY thyroid 07/30/22 11/25/24 History carvedilol 25 mg tablet 25 mg PO BID blood pressure 03/24/24 11/25/24 History gabapentin 400 mg capsule 400 mg PO TID nerve pain 03/24/24 11/25/24 History hydralazine 50 mg tablet 50 mg PO BID blood pressure 03/24/24 11/25/24 History paroxetine HCl 10 mg tablet 10 mg PO DAILY mental health 03/24/24 11/25/24 History clonidine HCl 0.1 mg tablet 0.1 mg PO BID 30 days #60 tabs 03/26/24 11/25/24 Rx losartan 100 mg tablet 100 mg PO DAILY 07/04/24 11/25/24 History meclizine 25 mg tablet 25 mg PO TID 07/04/24 Unknown History omeprazole 20 mg capsule,delayed 20 mg PO DAILY PRN acid reflux 07/04/24 11/25/24 History release albuterol sulfate 90 mcg/actuation 2 puff inhalation Q4H PRN Wheezing 11/26/24 11/25/24 History aerosol inhaler (Ventolin HFA) cefdinir 300 mg capsule 300 mg PO BID #4 caps 12/01/24 Unknown Rx Allergy/AdvReac Type Severity Reaction Status Date / Time COVID-19 vaccine, mRNA, Allergy Anaphylaxis Verified 04/01/25 12:34 [id number], erythromycin base Allergy Rash Verified 04/01/25 12:34 (Erythromycin Base) lisinopril Allergy Swelling Verified 04/01/25 12:34 venom-wasp (wasp) Allergy NEEDS Verified 04/01/25 12:34 FOLLOW-UP amlodipine AdvReac Swelling Verified 04/01/25 12:34 latex AdvReac Swelling Verified 04/01/25 12:34 Family History Mother Hypertension Surgical History S/P laparoscopic cholecystectomy S/P hysterectomy H/O laminectomy History of partial nephrectomy History of tonsillectomy History of total knee arthroplasty History of total abdominal hysterectomy Social History Smoking Status: Never smoker ROS ROS ED Constitutional Constitutional ED: Denies chills, fever(s), subjective or sweats Eyes Eyes: Reports diplopia and other Details: With problems with her vision, diplopia, is pronounced when she reads things closely. And the diplopia is horizontal. ; Denies blurry vision or change in vision ENT ENT ED: Denies ear pain, rhinorrhea or sore throat Cardiovascular Cardiovascular: Denies chest pain, palpitations or paroxysmal nocturnal dyspnea Respiratory/Chest Respiratory/Chest: Denies cough, dyspnea, dyspnea on exertion or paroxysmal nocturnal dyspnea Gastrointestinal Gastrointestinal: Reports nausea; Denies abdominal pain, constipation, diarrhea, melena or vomiting Genitourinary Genitourinary ED: Denies dysuria, hematuria or urinary frequency Musculoskeletal Musculoskeletal: Reports back pain; Denies arthralgias or myalgias Integumentary Denies Abrasions or rash Neurologic Neurologic: Reports paresthesias RLE (Chronic) and weakness; Denies headache(s) Psychiatric Psychiatric: Denies anxiety Hematologic/Lymphatic Hematologic/Lymphatic: Denies easy bleeding or easy bruising EXAM Physical Exam Const Vital Signs: 04/01/25 12:34 04/01/25 13:34 04/01/25 14:26 Temperature 98 F Temperature Source Temporal Pulse Rate 72 69 68 Respiratory Rate 14 Respiratory Effort Respiratory Pattern Blood Pressure 126/59 H 139/63 H 137/69 H Blood Pressure Mean 81 88 91 Pulse Ox 98 96 96 Oxygen Delivery Method Room Air 04/01/25 14:53 04/01/25 14:54 04/01/25 14:59 Temperature Temperature Source Pulse Rate Respiratory Rate Respiratory Effort Normal Respiratory Pattern Normal Blood Pressure Blood Pressure Mean Pulse Ox Oxygen Delivery Method Room Air Room Air 04/01/25 14:59 04/01/25 15:29 04/01/25 15:30 Temperature Temperature Source Pulse Rate 68 66 66 Respiratory Rate 14 16 16 Respiratory Effort Respiratory Pattern Blood Pressure 149/65 H 152/78 H 152/78 H Blood Pressure Mean 93 102 102 Pulse Ox 100 98 99 Oxygen Delivery Method 04/01/25 16:00 04/01/25 16:00 04/01/25 16:30 Temperature Temperature Source Pulse Rate 67 67 66 Respiratory Rate 16 16 17 Respiratory Effort Respiratory Pattern Blood Pressure 157/82 H 157/82 H 171/91 H Blood Pressure Mean 107 107 117 Pulse Ox 99 99 98 Oxygen Delivery Method Room Air Positive well nourished and well developed General Appearance ED: well developed and NAD HEENT Reports moist mucous membranes atraumatic Nose: other Other Details: Ears are normal. Posterior pharynx erythema or exudate. Uvula midline. No deviation of tongue with protrusion. Eyes PERRL and EOMs intact bilaterally Eyes Narrative: No obvious nystagmus. No visual field cut. General Eye ED: Negative for pale conjunctiva or scleral icterus Neck no lymphadenopathy, supple and no JVD Neck Narrative: Patient has abnormal inspiratory and expiratory sounds over the trachea. She has had a prior tracheostomy/cricothyroidotomy performed emergently for angioedema due to COVID-vaccine. She also has obstructive sleep apnea. Chest Wall inspection of chest normal and palpation of chest normal Resp normal respiratory effort and clear to auscultation bilaterally Cardio no murmurs Rate: regular rate Rhythm: regular rhythm Heart Sounds: S1 normal and S2 normal GI normal to inspection, nondistended, normoactive bowel sounds, soft to palpation, non-tender, non-distended and no masses Back/Spine no CVA tenderness Extremity normal to inspection General Extremety ED: Yes edema General Extremity: edema Neuro oriented x3 and CN's II-XII intact bilaterally Neuro Narrative: Awake but not alert according to the daughter. Stalin Coma Scale: document GCS findings Spontaneous Obeys Commands Oriented 15 Sensorium / Orientation: Negative for alert Speech: speech normal Sensory Exam: sensory level loss detected Motor Exam: Negative for strength 5/5 throughout Psych mental status grossly normal Skin no wounds General Skin Exam: Negative for jaundice Lesions: no lesions Rashes: no rashes MDM MDM MDM Narrative Medical decision making narrative: With diplopia, problems with balance and obvious abnormality with dysmetria right upper extremity and problems with [id number] the heel on the right concern patient had a posterior stroke. CT of the head without contrast was ordered as well as CTA of the head and neck determines any significant stenosis that would necessitate transfer to tertiary center. Okay patient's blood pressure is slightly elevated. Her presentation is not consistent with paroxysmal benign positional vertigo since she is complaining of diplopia and has obvious neurologic focal deficits. Lab Data Attestation: I reviewed the patient's lab results. Lab results narrative: CBC is unremarkable. Basic metabolic panel is unremarkable. Coags unremarkable. D-dimer slightly elevated 12. Labs: Laboratory Results - last 24 hr 04/01/25 04/01/25 14:25 14:50 WBC 6.0 RBC 4.25 Hgb 13.4 Hct 41.1 MCV 96.7 MCH 31.5 MCHC 32.6 RDW Std Deviation 44.5 H RDW Coeff of [place] 12.5 Plt Count 147 L MPV 10.1 Immature Gran % (Auto) 0.200 Neut % (Auto) 62.6 Lymph % (Auto) 23.5 Eagle % (Auto) 9.6 Eos % (Auto) 3.9 Baso % (Auto) 0.2 Absolute Neuts (auto) 3.7 Absolute Lymphs (auto) 1.40 Nucleated RBC % 0 PT 17.0 H INR 1.4 APTT 32.1 Sodium 141 Potassium 4.2 Chloride 103 Carbon Dioxide 27.5 Anion Gap 11 BUN 14 Creatinine 0.91 Est GFR (MDRD) Non-Af 64 BUN/Creatinine Ratio 15.9 Glucose 107 H Calcium 9.9 Troponin T High Sens 12 D POC Glucose 109 H Radiography Diagnostic Testing: Clinical Impression(s) from Imaging Studies Head/Neck CTA 04/01/25 15:00 IMPRESSION: 1. Widely patent intracranial and cervical arterial vasculature. 2. No evidence of acute intracranial pathology. 3. Mild volume loss and chronic microangiopathic changes. Reading Location: [facility] Patient and daughter were informed of results. Hospitalist was paged EKG Initial EKG: Attestation: I personally reviewed and interpreted this EKG as follows: Interpretation: Sinus Rhythm (Rate is 65. EKG is normal. IA interval is 184 ms. Cures duration 90 ms. QT duration 414 ms. Hematite is normal.) Management Discussion w/another healthcare provider: Hospitalist (Spoke with Dr. Andrade Moore. Full admit PCU) Discharge Plan Triage Chief Complaint: Weakness ED Provider: Chase Jones Dx/Rx/DC Orders Clinical Impression: Posterior circulation stroke, CHRISTIANA (obstructive sleep apnea), Neuropathy, Morbid obesity with BMI of 40.0-44.9, adult, Elevated blood pressure reading with diagnosis of hypertension, Difficulty in walking Prescriptions: No Action potassium chloride 10 MEQ tablet 10 meq PO BID multivitamin with folic acid [Thera] 1 TABLET tablet 1 tab PO DAILY apixaban 5 MG tablet 5 mg PO BID levothyroxine 75 mcg Tablet 75 mcg PO DAILY carvedilol 25 mg tablet 25 mg PO BID paroxetine HCl 10 mg tablet 10 mg PO DAILY gabapentin 400 mg capsule 400 mg PO TID hydralazine 50 mg tablet 50 mg PO BID Patient Comments: PT STATES HER DR SAID IF HER BLOOD PRESSURE IS HIGH, TAKE AN EXTRA DOSE. clonidine HCl 0.1 mg Tablet 0.1 mg PO BID 30 Days Qty: 60 0RF albuterol sulfate [Ventolin HFA] 90 mcg/actuation HFA aerosol inhaler 2 puff inhalation Q4H PRN (Reason: Wheezing) Rx Instructions: with spacer cefdinir 300 mg capsule 300 mg PO BID Qty: 4 0RF omeprazole 20 mg capsule,delayed release(DR/EC) 20 mg PO DAILY PRN (Reason: acid reflux) meclizine 25 mg tablet 25 mg PO TID Patient Comments: PT STATES SHE SHOULD TAKE THIS BUT DOESN'T, ONLY IF SHE IS DIZZY. losartan 100 mg tablet 100 mg PO DAILY Primary Care Provider: Ever Kilgore Referrals: Ever Kilgore MD [Primary Care Provider] - Print Language: Bulgarian Disposition Disposition: Acute Care Hospital [facility] NIHSS NIHSS 1a. Level of Consciousness: 1 - Not alert; Arousable by minor stimuli to obey, answer & respond 1b. LOC Questions: 0 - Answers BOTH questions correctly 1c. LOC Commands: 0 - Performs BOTH tasks correctly 2. Best Gaze: 0 - Normal 3. Visual: 0 - No visual loss 4. Facial Palsy: 0 - Normal symmetrical movements 5a. Left Arm: 0 - No drift; arm holds 90 (or 45) degrees for full 10 seconds 5b. Right Arm: 0 - No drift; arm holds 90 (or 45) degrees for full 10 seconds 6a. Left Le - No drift; leg holds 30-degree position for full 5 seconds 6b. Right Le - No drift; leg holds 30-degree position for full 5 seconds 7. Limb Ataxia: 2 - Present in 2 limbs (Right upper limb is worse than the right lower limb. There is a difference between the right and left side.) 8. Sensory: 1 - Huuw-yh-[id number] sensory loss; (Altered sensation right lower extremity due to lumbar nerve problems.) 9. Best Language: 0 - No aphasia; normal 10. Dysarthria: 0 - Normal 11. Extinction and Inattention: 0 - No abnormality Total: 4 Stroke Questions Stroke Team Activated: No Reviewed Inclusion/Exclusion criteria: No IV Thrombolytic Administered: No No contraindications from thrombolytic administration: No
[2025-04-01 15:05] LABS: Anion Gap 11 (5-15); BUN 14 mg/dL (4-19); BUN/Creat Ratio 15.9 RATIO (10-20); Calcium,Total 9.9 mg/dL (7.6-11.0); Carbon Dioxide 27.5 mmol/L (21.0-32.0); Chloride 103 mmol/L (98-108); Glucose 107 mg/dL (70-99); Potassium 4.2 mmol/L (3.3-5.1)
[2025-04-01 15:31] LABS: Prothrombin Time (Protime)PT. 17.0 SECONDS (11.7-14.9)
[2025-04-01 15:32] LABS: Partial Thromboplast Time 32.1 Seconds (24.1-36.2)
[2025-04-01 15:56] LABS: Troponin T High Sensitivity 12 ng/L (<=14)
--- NOTE | 2025-04-01 17:40 | ECHOCS_ITS ---
Reason For Study Reason For Study: TIA/STROKE Procedure This was a 2D Doppler, Color Flow transthoracic echocardiogram. The study was technically difficult. Contrast injection was performed. Exam performed portable in patient room. Left Ventricle Left ventricular systolic function is hyperdynamic. The LV ejection fraction is 70 %. Mid cavitary dynamic gradient 22 with valsalva mm/Hg. No regional wall motion abnormalities noted. Right Ventricle Normal right ventricle. Normal systolic function. Tricuspid Valve Right ventricular systolic pressure estimated to be 22 mmHg. No tricuspid valve insufficiency. Aortic Valve The aortic valve is not well visualized. Trisinus/trileaflet aortic valve. There is no aortic stenosis. Pulmonic Valve Normal pulmonic valve. Great Vessels Normal sized aortic root. Normal inferior vena cava. Pericardium/Pleural No pericardial effusion. Epicardial fat. Medication Diluted definity 2ml given slow IV push to enhance endocardial definition. MMode/2D Measurements & Calculations LVIDd: 3.4 cm IVSd: 1.5 cm LVOT diam: 2.0 cm LVIDs: 1.9 cm LVPWd: 1.3 cm LVOT area: 3.0 cm2 RVDd: 3.6 cm FS: 45.8 % asc Aorta Diam: 3.3 cm LAV(MOD-bp): 54.7 ml LVAd ap4: 34.1 cm2 LAV(MOD-bp) Indexed: 26.5 ml/m2 LVLd ap4: 8.7 cm LAV(MOD-sp2): 55.0 ml EDV(MOD-sp4): 110.4 ml LAV(MOD-sp4): 53.6 ml EDV(sp4-el): 112.8 ml LVAs ap4: 20.4 cm2 LVLs ap4: 7.6 cm ESV(MOD-sp4): 47.2 ml ESV(sp4-el): 46.3 ml EF(MOD-sp4): 57.3 % EF(sp4-el): 59.0 % SV(MOD-sp4): 63.2 ml SV(MOD-sp2): 50.1 ml LVAd ap2: 29.6 cm2 LVLd ap2: 8.2 cm SI(MOD-sp4): 30.6 ml/m2 SI(MOD-sp2): 24.2 ml/m2 EDV(MOD-sp2): 88.4 ml EDV(sp2-el): 91.3 ml LVAs ap2: 18.9 cm2 LVLs ap2: 7.6 cm ESV(MOD-sp2): 38.3 ml ESV(sp2-el): 39.6 ml EF(MOD-sp2): 56.7 % SV(sp4-el): 66.5 ml Ao sinus diam: 3.[address] Junction: 2.4 cm LA A4 area: 19.3 cm2 LA dimension(2D): 3.8 cm RA A4 area: 11.7 cm2 TAPSE: 2.0 cm Time Measurements MV dec time: 0.44 sec Doppler Measurements & Calculations MV E max geoff: 56.2 cm/sec Lat Peak E' Geoff: 7.5 cm/sec Med Peak E' Geoff: 7.5 cm/sec MV A max geoff: 79.4 cm/sec E/E' lat: 7.5 E/E' med: 7.5 MV E/A: 0.71 Ao V2 max: 121.2 cm/sec LV V1 max: 90.2 cm/sec MV dec slope: 128.5 cm/sec2 Ao max P.9 mmHg LV V1 max P.3 mmHg Ao V2 mean: 91.7 cm/sec LV V1 mean P.1 mmHg Ao mean P.6 mmHg LV V1 mean: 69.4 cm/sec Ao V2 VTI: 27.7 cm LV V1 VTI: 21.8 cm AV (velocity ratio): 0.79 GABRIELA(I,D): 2.4 cm2 GABRIELA(V,D): 2.2 cm2 SV(LVOT): 65.6 ml PA V2 max: 86.0 cm/sec TR max geoff: 208.5 cm/sec TR max P.4 mmHg ECHO/Echo Complete W/ Contrast Interpretation Summary The LV ejection fraction is 70 %. Left ventricular systolic function is hyperdynamic. Ordering Physician: Andrade Tapia Performed By: Lauren Villafana RDCS
--- NOTE | 2025-04-01 17:40 | MRI_ITS ---
PROCEDURE: BRAIN WITHOUT CONTRAST 04/01/2025 REASON FOR EXAM: VERTIGO TECHNIQUE: BRAIN WITHOUT CONTRAST Multiplanar and multisequence images were obtained. COMPARISON: 11/26/2024 CT. FINDINGS: Moderate global parenchymal atrophy. Xerm-cy-uymlcphn chronic microvascular ischemia. No evidence of acute hemorrhage or infarction. No extra-axial blood or fluid collections. Left maxillary sinus and right ethmoid sinus retention cysts. The mastoid air cells are clear. MRI/Brain without Contrast IMPRESSION: No acute intracranial abnormality. Reading Location: [place] [id number]
--- NOTE | 2025-04-01 17:41 | PCM.HP.STD ---
[facility] - General General Date of Admission: 04/01/25 Date of Service: 04/01/25 Chief Complaint: Vertigo and diplopia. [facility] Narrative AYAZ HERNANDEZ, is a 79 F who presents with vertigo, ear fullness, and diplopia. Symptoms began about 4 days ago. He does have a history of PVD but the symptoms are different because those symptoms are typically related with room spinning but she is not having at this time. She gets dizzy when she tries to move or turn her head and medication gets diplopia when she is reading or watching TV. And occasional she is getting fullness in her ears and hearing jansen. She presented emergency room and underwent a workup that was negative for any stroke with a CTA of the head and neck. With her ongoing symptoms, the hospital service was contacted for admission. [facility] Medical History DVT (deep venous thrombosis) Post-menopausal Dyspnea History of stress test Ovarian tumor Anticoagulant long-term use Non Hodgkin's lymphoma Dehiscence of surgical wound GERD (gastroesophageal reflux disease) Restless leg syndrome Peripheral neuropathy Osteoarthritis Hypertension Morbid obesity with BMI of 40.0-44.9, adult Home Medications ?Medication ?Instructions ?Recorded ?Last Taken ?Type potassium chloride 10 mEq 10 meq PO BID supplement 06/07/18 11/25/24 History tablet,extended release(part/cryst) multivitamin with folic acid 400 1 tab PO DAILY vitamin 08/01/18 11/25/24 History mcg tablet (Thera) apixaban 5 mg tablet 5 mg PO BID blood thinner 08/13/20 11/25/24 History levothyroxine 75 mcg tablet 75 mcg PO DAILY thyroid 07/30/22 11/25/24 History carvedilol 25 mg tablet 25 mg PO BID blood pressure 03/24/24 11/25/24 History gabapentin 400 mg capsule 400 mg PO TID nerve pain 03/24/24 11/25/24 History hydralazine 50 mg tablet 50 mg PO BID blood pressure 03/24/24 11/25/24 History paroxetine HCl 10 mg tablet 10 mg PO DAILY mental health 03/24/24 11/25/24 History clonidine HCl 0.1 mg tablet 0.1 mg PO BID bp 30 days #60 tabs 03/26/24 11/25/24 Rx losartan 100 mg tablet 100 mg PO DAILY bp 07/04/24 11/25/24 History meclizine 25 mg tablet 25 mg PO TID dizziness 07/04/24 Unknown History omeprazole 20 mg capsule,delayed 20 mg PO DAILY PRN acid reflux 07/04/24 11/25/24 History release albuterol sulfate 90 mcg/actuation 2 puff inhalation Q4H PRN Wheezing 11/26/24 11/25/24 History aerosol inhaler (Ventolin HFA) Allergy/AdvReac Type Severity Reaction Status Date / Time COVID-19 vaccine, mRNA, Allergy Anaphylaxis Verified 04/01/25 12:34 [id number], erythromycin base Allergy Rash Verified 04/01/25 12:34 (Erythromycin Base) lisinopril Allergy Swelling Verified 04/01/25 12:34 venom-wasp (wasp) Allergy NEEDS Verified 04/01/25 12:34 FOLLOW-UP amlodipine AdvReac Swelling Verified 04/01/25 12:34 latex AdvReac Swelling Verified 04/01/25 12:34 Family History Mother Hypertension Surgical History S/P laparoscopic cholecystectomy S/P hysterectomy H/O laminectomy History of partial nephrectomy History of tonsillectomy History of total knee arthroplasty History of total abdominal hysterectomy Social History Smoking Status: Never smoker ROS ROS Narrative Chronic right leg related with prior back surgeries. Does have chronic numbness in her legs due to neuropathy from her back surgeries. All review of systems were negative except as mentioned above in the history of present illness and the other review of systems. Vital Signs Vital Signs Vital Signs: 04/01/25 12:34 04/01/25 13:34 04/01/25 14:26 Temperature 36.6 C Temperature Source Temporal Pulse Rate 72 69 68 Respiratory Rate 14 Respiratory Effort Respiratory Pattern Blood Pressure 126/59 H 139/63 H 137/69 H Blood Pressure Mean 81 88 91 Pulse Ox 98 96 96 Oxygen Delivery Method Room Air 04/01/25 14:53 04/01/25 14:54 04/01/25 14:59 Temperature Temperature Source Pulse Rate Respiratory Rate Respiratory Effort Normal Respiratory Pattern Normal Blood Pressure Blood Pressure Mean Pulse Ox Oxygen Delivery Method Room Air Room Air 04/01/25 14:59 04/01/25 15:29 04/01/25 15:30 Temperature Temperature Source Pulse Rate 68 66 66 Respiratory Rate 14 16 16 Respiratory Effort Respiratory Pattern Blood Pressure 149/65 H 152/78 H 152/78 H Blood Pressure Mean 93 102 102 Pulse Ox 100 98 99 Oxygen Delivery Method 04/01/25 16:00 04/01/25 16:00 04/01/25 16:30 Temperature Temperature Source Pulse Rate 67 67 66 Respiratory Rate 16 16 17 Respiratory Effort Respiratory Pattern Blood Pressure 157/82 H 157/82 H 171/91 H Blood Pressure Mean 107 107 117 Pulse Ox 99 99 98 Oxygen Delivery Method Room Air 04/01/25 17:00 04/01/25 17:00 04/01/25 17:34 Temperature Temperature Source Pulse Rate 70 67 66 Respiratory Rate 20 H 16 16 Respiratory Effort Respiratory Pattern Blood Pressure 173/84 H 173/84 H 160/98 H Blood Pressure Mean 113 113 118 Pulse Ox 98 98 99 Oxygen Delivery Method 04/01/25 17:35 Temperature 36.7 C Temperature Source Pulse Rate 66 Respiratory Rate 16 Respiratory Effort Respiratory Pattern Blood Pressure 160/98 H Blood Pressure Mean 118 Pulse Ox 99 Oxygen Delivery Method Weight Weight: 109 kg Body Mass Index (BMI) 43.9 Physical Exam Narrative - Physical Exam General: Alert, Oriented x3, Cooperative HEENT: Atraumatic, PERRLA, EOMI, Normocephalic. Tympanic membranes are visualized and no effusions were noted. No erythema of the tympanic membranes. Oral: Moist Mucosa, No Gingival or Mucosal Lesions/ Ulcerations Neck: Supple, No JVD, Negative Carotid Bruits Lungs: Clear to auscultation, Normal air movement Cardiovascular: Regular rate, Normal S1, Normal S2, No murmurs Abdomen: Bowel Sounds Present, Soft, Non Tender, Non-Distended, No Hepato-splenomegaly Extremities: No clubbing, No cyanosis, No edema, Capillary Refill Less than 3 Seconds Skin: No rashes, No breakdown Musculoskeletal: No Tenderness to Palpation of Joints or Extremities Neurological: Neuro grossly intact. Cranial nerves II through XII gross intact. Muscle strength 5-5 in upper extremities bilaterally and 4 out of 5 in lower extremities bilaterally. Sensation grossly intact throughout. Patient had limited range of motion in her lower extremities but grossly. Normal. Finger-nose was within normal limits. Psych/Mental Status: Normal Affect, Appropriate Results Lab / Micro Data Attestation: I reviewed the patient's lab results. 04/01/25 14:25 04/01/25 14:25 Labs: Laboratory Results - last 24 hr 04/01/25 14:25: WBC 6.0, RBC 4.25, Hgb 13.4, Hct 41.1, MCV 96.7, MCH 31.5, MCHC 32.6, RDW Std Deviation 44.5 H, RDW Coeff of [place] 12.5, Plt Count 147 L, MPV 10.1, Immature Gran % (Auto) 0.200, Neut % (Auto) 62.6, Lymph % (Auto) 23.5, Ross % (Auto) 9.6, Eos % (Auto) 3.9, Baso % (Auto) 0.2, Absolute Neuts (auto) 3.7, Absolute Lymphs (auto) 1.40, Nucleated RBC % 0, PT 17.0 H, INR 1.4, APTT 32.1, Sodium 141, Potassium 4.2, Chloride 103, Carbon Dioxide 27.5, Anion Gap 11, BUN 14, Creatinine 0.91, Est GFR (MDRD) Non-Af 64, BUN/Creatinine Ratio 15.9, Glucose 107 H, Calcium 9.9, Troponin T High Sens 12 D 04/01/25 14:50: POC Glucose 109 H Imaging Radiology Impression Head/Neck CTA 04/01/25 15:00 IMPRESSION: 1. Widely patent intracranial and cervical arterial vasculature. 2. No evidence of acute intracranial pathology. 3. Mild volume loss and chronic microangiopathic changes. Reading Location: [id number] Assessment & Plan Assessment/Plan (1) Vertigo: PLAN: Along with status post ear fullness and abnormal sounds. No obvious effusions noted on otoscopic exam. Etiologies could be posterior circulation stroke versus benign paroxysmal positional vertigo though her symptoms are atypical for M?ni?re's disease. Plan is to do an MRI of the brain, echocardiogram, therapy evaluations. Continue with as needed meclizine. PT OT evaluate and treat. PLAN: Plan Chronic conditions CHRISTIANA: Continue CPAP available. Obesity class III: Complicates care and recovery. Hypertension: Continue with carvedilol Hypothyroidism: Continue levothyroxine. Depression: Continue with paroxetine. Non-Hodgkin's lymphoma: Follow-up with oncology History of DVT: Continue with apixaban. VTE prophylaxis: Not indicated as patient is already anticoagulated apixaban. CODE STATUS: Addressed with patient. Patient wishes to be full code. Charges/Coding Visit Charges Inpatient E&M: 75982 Init Hosp L3
[2025-04-01 18:08] LABS: Troponin T High Sens 2 HR 11 ng/L (<=14)
--- NOTE | 2025-04-01 18:43 | CASEMGMT ---
Care Management Face to Face with patient for initial transition planning/care coordination assessment in the ED.? This sba underwriter introduced self and role at [facility]. Patient alert and oriented. Patient willing to participate in assessment and is able to answer all questions appropriately.? Care providers, pharmacy, and demographics verified. Admitting Diagnosis: ?Weakness Other diagnosis history: ?DVT, ovarian tumor, GERD, neuropathy, osteoarthritis, hypertension PCP: ?[facility] Specialists: ?Ty Preferred Pharmacy: [facility] Insurance: ?Medicare Prescription Benefit: Yes Living Will/HPOA: ?Both completed LNOK: children Living Arrangements: ?patient lives alone in a one floor apartment.? Patient independent with ADLs and most IADLs, daughter helps as needed Transportation: ?Patient drives DME: ?walker, cane, wheelchair, shower chair, grab bars, blood pressure cuff, pulse ox HHC: ?none SNF/Rehab: ?[facility] Community Resources: ?None Behavioral Health History: ?None Patient goals: Patient wishes to discharge home, denies need for home health care at this time. Patient denies any further needs or concerns at this time. Disposition Plan: admission to acute; RN CM/SW to follow for discharge planning needs that may arise. Sis Carlton, DRY GOODS INSPECTOR, ROAD INSPECTOR
--- OUTSIDE RECORDS SUMMARY | 2025-04-01 20:27 | XMS RPT_ITS | CCD ---
Author Organization [facility] CliniSyms Care Team Providers Care Bladder Trimmer Name Role Phone Jose Victoria Unavailable Unavailable Kavin Cole Unavailable Unavailable DouglasKavin rdz Unavailable Unavailable ALCANTARA, PAVEL C Unavailable Unavailable ALCANTARA, PAVEL C Unavailable Unavailable NO, DOCTOR ON Unavailable Unavailable ALCANTARA PAVEL C Unavailable Unavailable NO, DOCTOR ON Unavailable Unavailable Edwin Street Primary Care Provider Edwin Street MD Primary Care Provider Karime ROMERO, Mu V Unavailable Edwin Street MD Primary Care Provider [phone] Sylvia Lizama MD Primary Care Provider Rene Do DO Unavailable Sylvia Lizama MD Primary Care Provider Rene Do DO Unavailable [phone] Melba Escudero MD Unavailable Chinyere Shea RN Unavailable Rene Do DO Unavailable [phone] Chinyere Shea RN Unavailable ZENY CROWDER Admitting Unavailable ZENY CROWDER Attending Unavailable SYLVIA LIZAMA Primary Care Unavailable Sylvia Lizama MD Primary Care Provider Enid Palafox Unavailable Unavailabl e Dr. Sylvia Lizama Primary Care Provider Dr. César Berrios Emergency Provider Dr. Vikki Stanley Admit Provider Dr. Vikki Stanley Other Provider Dr. Kaylen Gonzalez Attending Provider Dr. Kaylen Gonzalez Other Provider Dr. Kenyon Joiner Attending Provider Dr. Kenyon Joiner Other Provider Dr. Melba Escudero Other Provider Sylvia Lizama MD Primary Care Provider Hi DO, Rene Unavailable Melba Escudero MD Unavailable Shabbir RN, Chinyere Unavailable Enid Palafox Unavailable Unavailabl e Suzy ROMERO, Anca Unavailable Melba Escudero MD Unavailable Shabbir RN, Chinyere Unavailable Annalisa ROMERO, Prince Unavailable Melba Escudero MD Unavailable Suzy ROMERO, Anca Unavailable [facility], [facility] Unavailable Unavailable Dl ROMERO, Sylvia Funk Primary Care Provider Joycelyn MAYA, Bozena Morrison Unavailable Haagen PUBLIC POLICY PROFESSOR.CRISIS COUNSELOR, Gini Unavailable Suppan PUBLIC POLICY PROFESSOR.CRISIS COUNSELOR, Judith A Unavailable [phone] Suppan PUBLIC POLICY PROFESSOR.CRISIS COUNSELOR, Judith A Unavailable Suppan PUBLIC POLICY PROFESSOR.CRISIS COUNSELOR, Judith A Unavailable [phone] Dr. Sylvia Lizama MD Primary Care Provider Dr. Zeny Wolff DO Attending Provider Dr. Zeny Wolff DO Emergency Provider Dr. Tanisha Bahena DO Emergency Provider Dr. Jaxson Meehan DO Admit Provider [phone] Dr. Jaxson Meehan DO Attending Provider Dl ROMERO, Dr. Curtis Primary Care Provider New LARIOS, Dr. Corbin Attending Provider New LARIOS, Dr. Corbin Emergency Provider Dr. Tanisha Bahena DO Emergency Provider Shefali LARIOS, Dr. Puri Admit Provider Shefali LARIOS, Dr. Puri Attending Provider Shefali LARIOS, Dr. Puri Other Provider [phone] Myriam ROMERO, Dr. Santos Attending Provider Unavaila ble Myriam ROMERO, Dr. Santos Other Provider Unavailable Rhys ROMERO, Dr. Kenyon Snider Attending Provider Rhys ROMERO, Dr. Kenyon Snider Other Provider [place] Primary Care Unavailable Maria Isabel Glover Attending Unavailable Glover, Maria Isabel Consulting Unavailable Glover, Maria Isabel Admitting Unavailable Lisette MECHANICAL CAD DRAFTER, Christina Attending Unavailable [place] Primary Care Unavailable Evans Jones Attending Unavailable [place], Sylvia Primary Care Unavailable Kenyon Joiner Attending Unavailable Kenyon Joiner Consulting Unavailable Rafat Casper Attending Unavailable [place] Primary Care Unavailable Lisette MECHANICAL CAD DRAFTER, Christina Attending Unavailable [place] Primary Care Unavailable Kenyon Joiner Attending Unavailable Glover, Maria Isabel Consulting Unavailable Glover, Maria Isabel Admitting Unavailable [place], Sylvia Primary Care Unavailable Marcell Gutiérrez Attending Unavailable Dl, Sylvia Primary Care Unavailable Zeny Wolff Attending Unavailable [place], Sylvia Primary Care Unavailable Mosteller, Jaxsno Admitting Unavailable Mostjuarez Jaxson Attending Unavailable Mosteller, Jaxson Consulting Unavailable [place], Sylvia Primary Care Unavailable Kenyon Joiner Attending Unavailable Tanisha Bahena Referring Unavailable Mostjuarez, Jaxson Admitting Unavailable Mostjuarez, Jaxson Consulting Unavailable [place], Sylvia Primary Care Unavailable Alysha Miguel Consulting Unavailable Pennie NAYAK Efvictor uhgobe Attending Unavailabl e Dl, Sylvia Primary Care Unavailable Oleghe OLS Efewongbe Attending Unavailabl e [place], Sylvia Primary Care Unavailable Oleghe OLS, Efewongbe Attending Unavailabl e Dl, Sylvia Primary Care Unavailable Alysha Miguel Attending Unavailable Alysha Miguel Consulting Unavailable Jaxson Meehan Consulting Unavailable Jaxson Meehan Admitting Unavailable Dl, Sylvia Primary Care Unavailable Alysha Miguel Attending Unavailable Myriam, Alysha Consulting Unavailable Jaxson Meehan Attending Unavailable Kenyon Joiner Attending Unavailable Kenyon Joiner Consulting Unavailable Rene Do DO Unavailable [phone] DL, SYLVIA J Primary Care Unavailable MISSY HIRSCH Attending Unavailable MANUEL PICKARDQUELINE A Referring Unavailable DL, SYLVIA Funk Primary Care Unavailable MASCI, CÉSAR A Referring Unavailable DL, SYLVIA Funk Primary Care Unavailable SUPPJUDITH HARLEY A Attending Unavailable DL, SYLVIA Funk Primary Care Unavailable JUDITH PICKARD A Attending Unavailable DL, SYLVIA Funk Primary Care Unavailable JOSHUA, BRENDON Referring Unavailable DL, SYLVIA Funk Primary Care Unavailable SELF Referring Unavailable FRANKLYN JUARES Attending Unavailable DL, SYLVIA J Referring Unavailable DL, SYLVIA Funk Primary Care Unavailable DL, SYLVIA Funk Primary Care Unavailable JUDITH PICKARD A Referring Unavailable DL, SYLVIA Funk Primary Care Unavailable ASAD DERAS Attending Unavailable DL, SYLVIA Funk Primary Care Unavailable MASCI, CÉSAR A Referring Unavailable JOSHUA, BRENDON Referring Unavailable DL, SYLVIA Funk Primary Care Unavailable BRENDON COPPOLA Referring Unavailable DL, SYLVIA Funk Primary Care Unavailable DL, SYLVIA Funk Primary Care Unavailable ISRAELI, CÉSAR A Attending Unavailable DL, SYLVIA Funk Attending Unavailable DL, SYLVIA Funk Primary Care Unavailable JOSHUA, BRENDON Referring Unavailable DL, SYLVIA Funk Primary Care Unavailable DL, SYLVIA Funk Referring Unavailable DL, SYLVIA Funk Primary Care Unavailable ELIDA LOZADA Referring Unavailable DL, SYLVIA J Primary Care Unavailable MASCI, CÉSAR A Referring Unavailable DL, SYLVIA Funk Primary Care Unavailable MASCI, CÉSAR A Referring Unavailable DL, SYLVIA Funk Primary Care Unavailable DL, SYLVIA Funk Primary Care Unavailable SELF Referring Unavailable JUDITH PICKARD A Attending Unavailable DL, SYLVIA Funk Primary Care Unavailable SUPPCRICKET, JUDITH A Attending Unavailable DL, SYLVIA Funk Primary Care Unavailable SUPPMANUEL HARLEYJUDITH A Attending Unavailable DL, SYLVIA Funk Primary Care Unavailable MASCI, CÉSAR A Referring Unavailable SUPPAN, JUDITH A Attending Unavailable DL, SYLVIA Funk Primary Care Unavailable SUPPAN, JUDITH A Attending Unavailable DL, SYLVIA J Primary Care Unavailable MASCI, CÉSAR A Referring Unavailable DL, SYLVIA J Primary Care Unavailable SUPPCRICKET, JUDITH Medel Attending Unavailable DL, SYLVIA J Primary Care Unavailable ZENY CROWDER Attending Unavailable ZENY CROWDER Referring Unavailable BRENDON COPPOLA Referring Unavailable DL, SYLVIA J Primary Care Unavailable DL, SYLVIA J Primary Care Unavailable DL, SYLVIA J Primary Care Unavailable MASCI, CÉSAR A Referring Unavailable GINI AYALA Attending Unavailable DL, SYLVIA J Primary Care Unavailable MASCI, CÉSAR A Referring Unavailable DL, SYLVIA J Primary Care Unavailable MASCI, CÉSAR A Referring Unavailable DL, SYLVIA J Primary Care Unavailable ZENY CROWDER Attending Unavailable SUPPCRICKET, JUDITH Medel Referring Unavailable DL, SYLVIA Funk Attending Unavailable DL, SYLVIA J Primary Care Unavailable DL, SYLVIA J Primary Care Unavailable MASCI, CÉSAR A Referring Unavailable DL, SYLVIA J Primary Care Unavailable MASCI, CÉSAR A Referring Unavailable DL, SYLVIA J Primary Care Unavailable MASCI, CÉSAR A Referring Unavailable DL, SYLVIA J Primary Care Unavailable MASCI, CÉSAR A Referring Unavailable DL, SYLVIA J Primary Care Unavailable MASCI, CÉSAR A Referring Unavailable DL, SYLVIA J Primary Care Unavailable MASCI, CÉSAR A Referring Unavailable MASCI, CÉSAR A Referring Unavailable DL, SYLVIA J Primary Care Unavailable BRENDON COPPOLA Referring Unavailable DL, SYLVIA J Primary Care Unavailable DL, SYLVIA J Primary Care Unavailable DL, SYLVIA J Primary Care Unavailable SUPPAN, JUDITH A Referring Unavailable DL, SYLVIA J Primary Care Unavailable MISSY HIRSCH Referring Unavailable DL, SYLVIA Blessing Primary Care Unavailable DL, SYLVIA Blessing Primary Care Unavailable MASCI, CÉSAR A Attending Unavailable MASCI, CÉSAR A Referring Unavailable DL, SYLVIA J Primary Care Unavailable Dl Dr. Sylvia ROMERO Primary Care Provider Rafat Casper MD Attending Provider Unavaila Christina Pate Attending Provider [phone] Dr. Rafat Casper MD Attending Provider Dr. Cahse Jones MD Emergency Provider Dr. Andrade Tapia DO Admit Provider [phone] Andrade Tapia DO Attending Provider Dr. Andrade Tapia DO Other Provider Allergies Allergy Classification Reported Allergen(s) Allergy Type Date of Onset Reaction(s) Facility amLODIPine (6 sources) amLODIPine Drug Allergy 8 Swelling [facility] Angiotensin Converting Enzyme (KARYNA) Inhibitors (6 sources) Lisinopril Drug Allergy 8 Swelling [facility] Latex (6 sources) Latex Substance Allergy 0 Swelling [facility] Macrolides (antibiotic) (6 sources) Erythromycin Drug Allergy 3 Rash, GI Upset [facility] NIFEdipine (5 sources) NIFEdipine Drug Allergy 3 Rash [facility] Penicillins (antibiotic) (6 sources) Nafcillin Drug Allergy 9 Itching [facility] Work Phone: (20 sources) erythromycin; Translations: [erythromycin] Drug Allergy 3 Rash, GI Upset [facility] Repository (20 sources) Latex; Translations: [Latex] Propensity to adverse reactions to drug (disorder) 0 Swelling [facility] Repository (20 sources) lisinopril; Translations: [lisinopril] Drug Allergy 8 [facility] Repository (20 sources) amLODIPine; Translations: [AMLODIPINE BESYLATE] Drug Allergy 8 Swelling [facility] Work Phone: (20 sources) Nafcillin; Translations: [NAFCILLIN] Drug Allergy 9 Itching [facility] Work Phone: (6 sources) amLODIPine; Translations: [amlodipine] Drug Allergy 8 feet swell, Swelling [facility] Work Phone: (20 sources) WASPS; Translations: [WASPS] drug allergy 7 Mental Status Change, Rash [facility] Work Phone: (1 source) COVID VACCINE drug allergy 1 throat swelling, anaphylaxis [facility] Work Phone: (20 sources) Covid-19 Vaccine, Mrna, [id number], Lnp-S (Moderna); Translations: [COVID-19 VACCINE, MRNA, [id number], LNP-S (MODERNA)] Drug Allergy 1 Anaphylaxis [facility] (20 sources) Adhesive agent; Translations: [ADHESIVE] Drug Allergy 2 Rash [facility] Work Phone: (4 sources) Erythromycin Drug Allergy 2 Rash [facility] (5 sources) COVID-19 vaccine, mRNA, [id number],; Translations: [COVID-19 vaccine, mRNA, [id number],] Allergy to substance 2 Anaphylaxis [facility] (4 sources) venom-wasp Allergy to substance 2 NEEDS FOLLOW-UP [facility] (20 sources) NIFEdipine; Translations: [NIFEDIPINE] Drug Allergy 3 Rash [facility] (4 sources) Covid-19 Vaccine, Mrna, [id number], Lnp-S (Moderna) Drug Allergy 1 Anaphylaxis [facility] (1 source) Erythromycin Drug Allergy 5 [facility] (1 source) venom-wasp Drug allergy (disorder) 5 [facility] Repository Medications Current Medications Medication Drug Class(es) Dates Sig (Normalized) Sig (Original) [id number] actuat albuterol 0.09 mg/actuat metered dose inhaler (20 sources) beta2-Adrenergic Agonist Start: 11-06-2024 take 2 puff(s) by inhalation every four hours as needed albuterol HFA (PROVENTIL HFA, VENTOLIN HFA) 90 mcg/actuation inhaler Inhale 2 Puffs as instructed every 4 hours as needed. 11/06/2024 Active Start: 11-06-2024 End: 11-26-2024 Albuterol Sulfate (Ventolin Hfa) 90 mcg/actuation HFA aerosol inhaler Active 2 [facility] INHALATION Q4H as needed for Wheezing November 26, 2024 1:00am with spacer Start: 09-13-2020 take 2 puff(s) by in halation every six hours as needed for wheezing albuterol sulfate HFA (PROVENTIL HFA) 108 (90 Base) MCG/ACT inhaler Inhale 2 puffs into the lungs every 6 hours as needed for Wheezing 1 Inhaler 3 09/13/2020 Active Start: 09-13-2020 take 2 puff(s) by in halation every six hours as needed for wheezing albuterol sulfate HFA (PROVENTIL HFA) 108 (90 Base) MCG/ACT inhaler Inhale 2 puffs into the lungs every 6 hours as needed for Wheezing 1 Inhaler 3 09/13/2020 Active apixaban 5 mg oral tablet (20 sources) Factor Xa Inhibitor Start: 08-10-2018 End: 06-17-2025 take 1 tablet by mouth twice daily apixaban (ELIQUIS) 5 mg tab(s) Indications: History of DVT (deep vein thrombosis) Take 1 tablet by mouth two times a day. 180 tablet 3 06/17/2024 06/17/2025 Active Comment on above: Take 5 mg by mouth t wice daily. Take 1 tablet by sheron th twice daily. Take 1 tablet by sheron th two times a day. benoxinate hydrochloride 4 mg/ml / fluorescein sodium 2.5 mg/ml ophthalmic solution (1 source) Diagnostic Dye Start: 02-21-2023 End: 02-21-2023 fluorescein-benoxi royal 0.25-0.4 % 1 Drop (FLURESS) carvedilol 25 mg oral tablet (20 sources) alpha-Adrenergic Lenore, beta-Adrenergic Lenore Start: 11-07-2022 End: 11-12-2025 take 1 tablet by mouth twice daily carvedilol (COREG) 25 mg tablet Indications: Essential hypertension Take 1 tablet by mouth two times a day. 180 tablet 3 11/12/2024 11/12/2025 Active Start: 06-18-2021 End: 03-24-2024 take 1 tablet by mouth twice daily at mealtime Carvedilol (Coreg) 12.5 mg Tablet Discontinued 12.5 mg PO TWICE A DAY July 30, 2022 1:00am March 24, 2024 2:12pm heart must administer with a meal/food Start: 12-07-2019 End: 05-31-2021 take 1 tablet by mouth twice daily at mealtime carvedilol (COREG) 25 mg tablet Indications: Essential hypertension Take 1 tablet by mouth twice daily with meals. 180 tablet 3 12/07/2019 02/05/2021 Discontinued Start: 10-14-2018 take 1 tablet by sheron th once daily CARVEDILOL 25 MG TABS 1 tablet by mouth once a day carvedilol [id number] Roseliamichelle Lindas BARKER PEELER Comment on above: Take 1 tablet by sheron th twice daily with meals. Take 12.5 mg by mout h twice daily. Take 1 tablet by sheron th twice daily. Take 1 tablet by sheron th two times a day. cephalexin 500 mg oral capsule (9 sources) Cephalosporin Antibacterial Start: 2 End: 2 take 1 capsule by mouth twice daily cephALEXin (KEFLEX) 500 mg capsule Take 1 capsule by mouth twice daily for 7 days. 14 capsule 0 05/15/2022 05/22/2022 Active Start: 09-06-2020 End: 09-13-2020 take 1 capsule by mouth twice daily cephALEXin (KEFLEX) 500 MG capsule Take 1 capsule by mouth 2 times daily for 7 days 14 capsule 0 09/06/2020 09/13/2020 Active Start: 08-01-2018 End: 11-24-2018 take 1 capsule by mouth every twelve hours Cephalexin 500 MG capsule Discontinued 500 mg PO EVERY 12 HOURS August 01, 2018 1:00am November 24, 2018 12:02pm Comment on above: Take 1 capsule by mo [facility] twice daily for 7 days. doxycycline hyclate 100 mg oral tablet (7 sources) Tetracycline-clas s Drug Start: 4 End: 4 take 1 tablet by mouth twice daily doxycycline (VIBRA-TABS) 100 mg tablet Indications: Sinobronchitis Take 1 tablet by mouth two times a day for 10 days. 20 tablet 0 03/15/2024 03/25/2024 Active Start: 04-22-2022 End: 05-02-2022 take 1 tablet by mouth twice daily doxycycline monohydrate 100 mg tablet Indications: Bronchitis Take 1 tablet by mouth twice daily for 10 days. 20 tablet 04/22/2022 05/02/2022 Start: 11-28-2020 End: 12-08-2020 take 1 tablet by mouth twice daily doxycycline (VIBRA-TABS) 100 mg tablet Take 1 tablet by mouth twice daily for 10 days. 20 tablet 11/28/2020 12/08/2020 Comment on above: Take 1 tablet by sheron th twice daily for 10 days. 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) For CT CHESTABD/PEL W IVCON Routine order Administer, As Directed One Time Only, via Oral, Rectal, both Oral and Rectal, Enteric Tube, Stoma or Indwelling Catheter, Enteric Contrast as designated per enteric contrast guidelines 1 Each 12/10/2024 12/11/2024 Active Start: 09-03-2024 End: 12-28-2024 enteric contrast (will be pr ovided with radiology test) Indications: 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) For CT ABD/PEL W IVCON Routine order Administer, As Directed One Time Only, via Oral, Rectal, both Oral and Rectal, Enteric Tube, Stoma or Indwelling Catheter, Enteric Contrast as designated per enteric contrast guidelines 1 Each 09/03/2024 12/28/2024 Discontinued Start: 09-03-[address] (will be provided with radiology test) Indications: 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) For CT ABD/PEL W IVCON Routine order Administer, As Directed One Time Only, via Oral, Rectal, both Oral and Rectal, Enteric Tube, Stoma or Indwelling Catheter, Enteric Contrast as designated per enteric contrast guidelines 1 Each 09/03/2024 Active Start: 04-26-2024 End: 04-27-2024 enteric contrast (will be pr ovided with radiology test) Indications: 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) For CT CHESTABD/PEL W IVCON Routine order Administer, As Directed One Time Only, via Oral, Rectal, both Oral and Rectal, Enteric Tube, Stoma or Indwelling Catheter, Enteric Contrast as designated per enteric contrast guidelines 1 Each 0 04/26/2024 04/27/2024 Start: 01-08-2024 End: 01-09-2024 enteric contrast (will be pr ovided with radiology test) Indications: 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) , Enlarged lymph nodes , Abnormal CT of the abdomen For CT CHESTABD/PEL W IVCON Routine order Administer, As Directed One Time Only, via Oral, Rectal, both Oral and Rectal, Enteric Tube, Stoma or Indwelling Catheter, Enteric Contrast as designated per enteric contrast guidelines 1 Each 0 01/08/2024 01/09/2024 Start: 01-08-2024 End: 01-09-2024 enteric contrast (will be pr ovided with radiology test) Indications: 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 ABD/PEL WO Routine order Administer, As Directed One Time Only, via Oral, Rectal, both Oral and Rectal, Enteric Tube, Stoma or Indwelling Catheter, Enteric Contrast as designated per enteric contrast guidelines 1 Each 0 12/17/2022 12/17/2022 Start: 11-25-2022 End: 11-25-2022 take 1 dose by mouth once, then take 1 dose by mouth once enteric contrast (will be provided with radiology test) Take 1 Each by mouth one time only for [address] Chest ABD/PEL WO Routine order Administer, As Directed One Time Only, via Oral, Rectal, both Oral and Rectal, Enteric Tube, Stoma or Indwelling Catheter, Enteric Contrast as designated per enteric contrast guidelines 1 Each 0 11/25/2022 11/25/2022 Start: 09-30-2022 End: 10-01-2022 enteric contrast (will be pr ovided with radiology test) For CT CHESTABD/PEL W IVCON Routine order Administer, As Directed One Time Only, via Oral, Rectal, both Oral and Rectal, Enteric Tube, Stoma or Indwelling Catheter, Enteric Contrast as designated per enteric contrast guidelines 1 Each 0 09/30/2022 10/01/2022 Active Start: 08-30-2022 End: 08-31-2022 enteric contrast (will be pr ovided with radiology test) For CT CHESTABD/PEL W IVCON Routine order Administer, As Directed One Time Only, via Oral, Rectal, both Oral and Rectal, Enteric Tube, Stoma or Indwelling Catheter, Enteric Contrast as designated per enteric contrast guidelines 1 Each 0 08/30/2022 08/31/2022 Start: 01-29-2022 End: 01-30-2022 enteric contrast (will be pr ovided with radiology test) Indications: 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 Chest ABD/PEL WO Routine order Administer, As Directed One Time Only, via Oral, Rectal, both Oral and Rectal, Enteric Tube, Stoma or Indwelling Catheter, Enteric Contrast as designated per enteric contrast guidelines Take 1 Each by mouth one time only for [address] ABD/PEL WO Routine order Administer, As Directed One Time Only, via Oral, Rectal, both Oral and Rectal, Enteric Tube, Stoma or Indwelling Catheter, Enteric Contrast as designated per enteric contrast guidelines [id number] 0.3 ml EPINEPHrine 1 mg/ml auto-injector (20 sources) alpha-Adrenergic Agonist, beta-Adrenergic Agonist, Catecholamine Start: 06-28-20 End: 06-17-20 24 EPINEPHrine (EPIPEN) 0.3 mg/0.3 mL auto-injector Indications: Angioedema, subsequent encounter Use as directed 2 Each 1 06/17/2024 Active Comment on above: Use as directed ferrous sulfate 325 mg oral tablet (4 sources) take 1 tablet by mouth once daily at breakfast ferrous sulfate 325 (65 Fe) MG tablet Take 325 mg by mouth daily (with breakfast) 0 Active fluconazole 150 mg oral tablet (2 sources) Azole Antifungal Start: 05-13-20 End: 05-13-20 fluconazole (DIFLUCAN) 150 mg tablet Indications: Feared condition not demonstrated Take 1 tablet by mouth one time only for 1 dose. Repeat in 3 days as needed. 2 tablet 0 05/13/2022 05/13/2022 Active Comment on above: Take 1 tablet by sheron one time only for 1 dose. Repeat in 3 days as needed. gabapentin 300 mg oral capsule (20 sources) Anti-epileptic Agent Start: 03-01-20 End: 08-28-20 take 1 capsule by mouth four times daily gabapentin (NEURONTIN) 300 mg capsule Indications: Neuropathy Take 1 capsule by mouth four times daily for 180 days. 360 capsule 1 03/01/2025 08/28/2025 Active Start: 03-01-2025 End: 03-01-2025 take 1 capsule by mouth twice daily gabapentin (NEURONTIN) 300 mg capsule Indications: Neuropathy Take 1 capsule by mouth two times a day for 180 days. 180 capsule 1 03/01/2025 03/01/2025 Discontinued Start: 12-28-2024 End: 06-26-2025 take 1 capsule by mouth once daily gabapentin (NEURONTIN) 300 mg capsule Indications: Neuropathy Take 1 capsule by mouth once daily for 180 days. 90 capsule 1 12/28/2024 03/01/2025 Discontinued Start: 05-27-2024 End: 05-11-2025 take 1 capsule by mouth twice daily gabapentin (NEURONTIN) 400 mg capsule Indications: Migraine without aura and without status migrainosus, not intractable Take 1 capsule by mouth two times a day for 180 days. 180 capsule 1 11/12/2024 12/28/2024 Discontinued (Other) Start: 05-18-2024 End: 08-16-2024 take 1 capsule by mouth once daily at bedtime gabapentin (NEURONTIN) 400 mg capsule Indications: Left arm pain , Neck pain , DDD (degenerative disc disease), lumbar Take 1 capsule by mouth daily at bedtime for 90 days. 90 capsule 05/18/2024 05/27/2024 Discontinued (Duplicate Entry) Start: 03-24-2024 take 1 capsule by mo [facility] three times daily Gabapentin 400 mg capsule Active 400 mg PO THREE TIMES A DAY March 24, 2024 12:00am nerve pain Start: 04-03-2023 End: 08-03-2024 take 1 capsule by mouth every eight hours gabapentin (NEURONTIN) 400 mg capsule Indications: Left arm pain , Neck pain , DDD (degenerative disc disease), lumbar Take 1 capsule by mouth every 8 hours for 180 days. 270 capsule 1 04/03/2023 02/05/2024 Discontinued Start: 07-30-2022 End: 03-24-2024 take 1 capsule by mouth three times daily Gabapentin 300 mg Capsule Discontinued 300 mg PO THREE TIMES A DAY July 30, 2022 1:00am March 24, 2024 2:12pm Start: 10-29-2021 End: 04-03-2023 take 1 capsule by mouth every eight hours gabapentin (NEURONTIN) 300 mg capsule Indications: DDD (degenerative disc disease), lumbar Take 1 capsule by mouth every 8 hours for 90 days. 90 capsule 2 04/22/2022 05/26/2022 Discontinued Start: 12-08-2019 End: 05-31-2021 take 1 capsule by mouth three times daily gabapentin (NEURONTIN) 300 mg capsule Indications: Chronic bilateral low back pain with bilateral sciatica Take 1 capsule by mouth three times daily for 180 days. 270 capsule 1 10/02/2020 05/31/2021 Discontinued Start: 06-17-2018 take 1 capsule by mo uth twice daily GABAPENTIN 300 MG CAPS 1 capsule by mouth twice a day gabapentin [id number] Roselia Ciro LPN Start: 06-10-2018 End: 06-10-2018 take 1 capsule by mouth three times daily at mealtime Gabapentin 400 MG capsule Discontinued 400 mg PO 3 TIMES DAILY WITH MEALS 0 June 10, 2018 12:00am June 10, 2018 3:38pm Start: 06-07-2018 End: 06-10-2018 take 1 capsule by mouth twice daily at mealtime Gabapentin 300 MG capsule Discontinued 300 mg PO TWICE DAILY WITH MEALS June 07, 2018 12:00am June 10, 2018 11:12am neuropathy Comment on above: Take 1 capsule by mo uth three times daily for 180 days. Take 1 capsule by mo uth every 8 hours for 90 days. Take 1 capsule by mo uth every 8 hours for 180 days. 12 hr guaiFENesin 600 mg extended release oral tablet (1 source) Start: End: take 1 tablet by mouth twice daily as needed guaiFENesin (MUCINEX) 600 mg 12 hr tablet Indications: URI, acute Take 1 tablet by mouth two times a day as needed for cold/allergy symptoms (cough) for up to 7 days. 14 tablet 0 10/27/2023 11/03/2023 Active Comment on above: Take 1 tablet by sheron th two times a day as needed for cold/allergy symptoms (cough) for up to 7 days. hydrALAZINE hydrochloride 50 mg oral tablet (20 sources) Arteriolar Vasodilator Start: End: take 1 tablet by mouth three times daily hydrALAZINE (APRESOLINE) 50 mg tablet Indications: Essential hypertension Take 1 tablet by mouth three times a day. 270 tablet 3 05/27/2024 09/03/2024 Discontinued Start: 04-03-2023 End: 11-12-2025 take 1 tablet by mouth twice daily hydrALAZINE (APRESOLINE) 50 mg tablet Indications: Essential hypertension Take 1 tablet by mouth two times a day. 180 tablet 3 11/12/2024 11/12/2025 Active Start: 11-27-2022 End: 11-08-2024 take 2 tablets by mouth twice daily hydrALAZINE (APRESOLINE) 25 mg tablet Take 2 tablets by mouth two times a day. 180 tablet 1 11/02/2024 11/08/2024 Discontinued Start: 08-23-2021 End: 10-19-2022 take 1 tablet by mouth every twelve hours hydrALAZINE (APRESOLINE) 25 mg tablet Indications: Essential hypertension Take 1 tablet by mouth every 12 hours. 180 tablet 1 04/22/2022 06/27/2022 Discontinued Start: 09-29-2019 End: 05-31-2021 take 1-2 tablets by mouth three times daily hydrALAZINE (APRESOLINE) 25 mg tablet Indications: Essential hypertension Take 1-2 tablets by mouth three times daily. 360 tablet 3 09/29/2019 05/31/2021 Discontinued Start: 06-10-2018 End: 06-18-2018 take 1 tablet by mouth three times daily Hydralazine 50 MG tablet Discontinued 50 mg PO THREE TIMES A DAY June 10, 2018 3:38pm June 18, 2018 12:22pm blood pressure Start: 06-07-2018 End: 06-10-2018 take 1 tablet by mouth three times daily Hydralazine 25 MG tablet Discontinued 25 mg PO THREE TIMES A DAY June 07, 2018 12:00am June 10, 2018 11:14am bp Start: 07-26-2016 End: 07-27-2016 Hydralazine 50 MG tablet Discontinued 25 mg PO DAILY July 26, 2016 2:05pm July 27, 2016 12:47pm Start: 07-26-2016 End: 07-27-2016 take 25 mg by mouth once daily Hydralazine Discontinue d 25 MG PO DAILY July 26, 2016 1:05pm July 27, 2016 11:47am Start: 11-10-2015 End: 07-26-2016 take 1 tablet by mouth twice daily Hydralazine 50 MG tablet Discontinued 50 mg PO TWICE A DAY 60 0 November 10, 2015 1:00am July 26, 2016 2:05pm Start: 11-07-2013 End: 11-10-2015 take 1 tablet by mouth three times daily Hydralazine 25 MG tablet Discontinued 25 mg PO THREE TIMES A DAY November 07, 2013 1:00am November 10, 2015 3:26pm End: 11-27-2022 take 2 tablets by mouth once daily hydrALAZINE (APRESOLINE) 25 mg tablet Take 50 mg by mouth once daily. 0 11/27/2022 Discontinued Comment on above: Take 1-2 tablets by mouth three times daily. Take 1 tablet by sheron th every 12 hours. Take 2 tablets by mo ut twice daily. Take 50 mg by mouth once daily. Take 1 tablet by sheron th twice daily. Take 1 tablet by sheron th two times a day. 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 Discontinue saline lock post exam. If Pt. has a central line or IVAD, may access for administration according to line specific nursing protocol. Once exam is complete flush line and de-access according to line specific nursing protocol in the CT contrast administration guidelines link. 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 Discontinue saline lock post exam. If Pt. has a central line or IVAD, may access for administration according to line specific nursing protocol. Once exam is complete flush line and de-access according to line specific nursing protocol in the CT contrast administration guidelines link. 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 Discontinue saline lock post exam. If Pt. has a central line or IVAD, may access for administration according to line specific nursing protocol. Once exam is complete flush line and de-access according to line specific nursing protocol in the CT contrast administration guidelines link. 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 Discontinue saline lock post exam. If Pt. has a central line or IVAD, may access for administration according to line specific nursing protocol. Once exam is complete flush line and de-access according to line specific nursing protocol in the CT contrast administration guidelines link. 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 Discontinue saline lock post exam. If Pt. has a central line or IVAD, may access for administration according to line specific nursing protocol. Once exam is complete flush line and de-access according to line specific nursing protocol in the CT contrast administration guidelines link. 1 Each 09/03/2024 Active Start: 07-27-2024 End: 07-28-2024 inject 1 dose intravenously once iv contrast (will be provided with radiology test) MRI Brain Inject, intravenously, once for 1 dose.No IV access, insert saline lock prior to beginning of sedation, infusion, injection of imaging exam.Discontinue saline lock post exam. If Pt. 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 Discontinue saline lock post exam. If Pt. has a central line or IVAD, may access for administration according to line specific nursing protocol. Once exam is complete flush line and de-access according to line specific nursing protocol in the CT contrast administration guidelines link. 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 Discontinue saline lock post exam. If Pt. has a central line or IVAD, may access for administration according to line specific nursing protocol. Once exam is complete flush line and de-access according to line specific nursing protocol in the CT contrast administration guidelines link. 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 Discontinue saline lock post exam. If Pt. has a central line or IVAD, may access for administration according to line specific nursing protocol. Once exam is complete flush line and de-access according to line specific nursing protocol in the CT contrast administration guidelines link. 1 Each 0 01/08/2024 01/09/2024 Active Start: 09-30-2022 End: 10-01-2022 iv contrast (will be provide d with radiology test) CT Chest ABD/PEL-Inject, intravenously, once for 1 dose.No IV access, insert saline lock prior to the beginning of sedation, infusion, injection of imaging exam. Discontinue saline lock post exam. If Pt. has a central line or IVAD, may access for administration according to line specific nursing protocol. Once exam is complete flush line and de-access according to line specific nursing protocol in the CT contrast administration guidelines link. 1 Each 0 09/30/2022 10/01/2022 Active Start: 08-30-2022 End: 08-31-2022 iv contrast (will be provide d with radiology test) CT Chest ABD/PEL-Inject, intravenously, once for 1 dose.No IV access, insert saline lock prior to the beginning of sedation, infusion, injection of imaging exam. Discontinue saline lock post exam. If Pt. has a central line or IVAD, may access for administration according to line specific nursing protocol. Once exam is complete flush line and de-access according to line specific nursing protocol in the CT contrast administration guidelines link. 1 Each 0 08/30/2022 08/31/2022 Start: 01-29-2022 End: 01-30-2022 iv contrast (will be provide d with radiology test) Indications: 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) CT Chest ABD/PEL-Inject, intravenously, once for 1 dose.No IV access, insert saline lock prior to the beginning of sedation, infusion, injection of imaging exam. Discontinue saline lock post exam. If Pt. has a central line or IVAD, may access for administration according to line specific nursing protocol. Once exam is complete flush line and de-access according to line specific nursing protocol in the CT contrast administration guidelines link. 1 Each 0 01/29/2022 01/30/2022 Active Comment on above: CT Chest ABD/PEL-Inj ect, intravenously, once for 1 dose.No IV access, insert saline lock prior to the beginning of sedation, infusion, injection of imaging exam. Discontinue saline lock post exam. If Pt. has a central line or IVAD, may access for administration according to line specific nursing protocol. Once exam is complete flush line and de-access according to line specific nursing protocol in the CT contrast administration guidelines link. Lactobacillus (4 sources) Lactobacillus (ACIDOPHILUS PO) Take by mouth 2 times daily 0 Active levothyroxine sodium 0.075 mg oral tablet (20 sources) l-Thyroxine Start: 022 End: 026 take 1 tablet by mouth once daily before breakfast levothyroxine (SYNTHROID) 75 mcg tablet Indications: Hypothyroidism, unspecified type Take 1 tablet by mouth daily before breakfast. 90 tablet 3 12/30/2024 12/30/2025 Active Start: 09-24-2021 End: 05-26-2022 take 1 tablet by mouth once daily before breakfast levothyroxine (SYNTHROID) 75 mcg tablet Take 1 tablet by mouth daily before breakfast. 90 tablet 1 09/24/2021 05/26/2022 Discontinued Start: 08-02-2020 End: 04-19-2021 take 1 tablet by mouth once daily before breakfast levothyroxine (SYNTHROID) 50 mcg tablet Take 1 tablet by mouth daily before breakfast. 90 tablet 01/12/2021 04/19/2021 Discontinued take 1 capsule by mouth once lev othyroxine 88 mcg cap Take 88 mcg by mouth every Friday. Active Comment on above: Take 1 tablet by sheron th daily before breakfast. loratadine 10 mg oral tablet (11 sources) take 1 tablet by mouth once daily in the morning loratadine (CLARITIN) 10 mg tablet Take 10 mg by mouth every morning. Active losartan potassium 100 mg oral tablet (20 sources) Angiotensin 2 Receptor Lenore Start: End: take 1 tablet by mouth once daily losartan (COZAAR) 100 mg tablet Indications: Essential hypertension Take 1 tablet by mouth once daily. 90 tablet 3 07/01/2024 07/01/2025 Active Start: 05-27-2024 End: 06-17-2025 take 1 tablet by mouth once daily losartan (COZAAR) 50 mg tablet Indications: Essential hypertension Take 1 tablet by mouth once daily. 90 tablet 3 06/17/2024 07/01/2024 Discontinued meclizine hydrochloride 25 mg oral tablet (20 sources) Antiemetic Start: 07-02-2024 End: 09-30-2024 take 1 tablet by mouth three times daily Meclizine 25 mg tablet Active 25 mg PO THREE TIMES A DAY July 04, 2024 12:00am dizziness Start: 04-08-2024 End: 05-08-2024 take 1 tablet by mouth three times daily meclizine (ANTIVERT) 25 mg tab Indications: BPPV (benign paroxysmal positional vertigo), unspecified laterality Take 1 tablet by mouth three times a day. 90 tablet 0 04/08/2024 05/08/2024 Active melatonin 3 mg oral tablet (4 sources) Start: 08-10-2018 take 1 tablet by mouth once daily melatonin 3 MG TABS tablet Take 1 tablet by mouth nightly 3 08/10/2018 Active miconazole nitrate 0.02 mg/mg topical powder (4 sources) Azole Antifungal Start: 08-10-2018 miconazole (MICOTIN) 2 % powder Apply topically 2 times daily. 45 g 1 08/10/2018 Active mirtazapine 15 mg oral tablet (4 sources) take 1 tablet by mouth once daily mirtazapine (REMERON) 15 MG tablet Take 15 mg by mouth nightly 0 Active Multivitamin With Folic Acid (Thera) 1 TABLET tablet (4 sources) Start: 08-01-2018 take 1 tablet by mouth once daily Multivitamin With Folic Acid (Thera) 1 TABLET tablet Active 1 {tbl} PO DAILY August 01, 2018 1:00am vitamin Start: 08-01-2018 take 1 tablet by sheron once daily Multivitamin With Folic Acid (Thera) 1 TABLET tablet Active 1 {tbl} PO DAILY August 01, 2018 1:00am Start: 08-01-2018 take 1 tablet by sheron th once daily Multivitamin With Folic Acid (Thera) 1 TABLET tablet Active 1 {tbl} PO DAILY August 01, 2018 12:00am Start: 08-01-2018 take 1 tablet by sheron th once daily Multivitamin With Folic Acid (Thera) 1 TABLET tablet Active 1 TABLET PO DAILY August 01, 2018 12:00am multivitamin/iron/folic acid (CENTRUM ULTRA WOMEN'S ORAL) (20 sources) take 1 tablet by mouth once daily multivitamin/iron/folic acid (CENTRUM ULTRA WOMEN'S ORAL) Take 1 tablet by mouth once daily. Active take 1 tablet by mouth once silver y multivitamin/iron/folic acid (CENTRUM ULTRA WOMEN'S ORAL) Take 1 tablet by mouth once daily. 0 Active multivitamin/iro n/folic acid (CENTRUM ULTRA WOMEN'S ORAL) Take by mouth. 0 Active Comment on above: Take by mouth. Take 1 tablet by sheron th once daily. mupirocin 0.02 mg/mg topical ointment (4 sources) RNA Synthetase Inhibitor Antibacterial Start: 12-26-19 End: 01-05-20 mupirocin (BACTROBAN) 2 % ointment Indications: Acute generalized exanthematous pustulosis due to drug Apply to affected area three times daily for 10 days. 15 g 0 12/25/2022 01/04/2023 Active Comment on above: Apply to affected ar ea three times daily for 10 days. nitrofurantoin, macrocrystals 25 mg / nitrofurantoin, monohydrate 75 mg oral capsule (13 sources) Nitrofuran Antibacterial Start: 11-01-19 End: 11-06-19 take 1 capsule by mouth twice daily nitrofurantoin monohydrate and macrocrystal (MACROBID) 100 mg capsule Take 1 capsule by mouth two times a day for 5 days. 10 capsule 11/01/2024 11/06/2024 Active Start: 07-27-2024 End: 08-01-2024 take 1 capsule by mouth twice daily nitrofurantoin monohydrate and macrocrystal (MACROBID) 100 mg capsule Indications: Acute cystitis with hematuria Take 1 capsule by mouth two times a day for 5 days. 10 capsule 07/27/2024 08/01/2024 Active Start: 05-11-2024 End: 05-16-2024 take 1 capsule by mouth twice daily nitrofurantoin monohydrate and macrocrystal (MACROBID) 100 mg capsule Take 1 capsule by mouth two times a day for 5 days. 10 capsule 05/11/2024 05/16/2024 Active Start: 2023 End: 11-12-2023 take 1 capsule by mouth twice daily nitrofurantoin monohydrate and macrocrystal (MACROBID) 100 mg capsule Take 1 capsule by mouth two times a day for 7 days. 14 capsule 0 2023 11/12/2023 Active Start: 05-13-2022 End: 05-20-2022 take 1 capsule by mouth twice daily nitrofurantoin monohydrate and macrocrystal (MACROBID) 100 mg capsule Indications: Urinary frequency Take 1 capsule by mouth twice daily for 7 days. 14 capsule 0 05/13/2022 05/20/2022 Active Comment on above: Take 1 capsule by mo [employer] twice daily for 7 days. Take 1 capsule by mo [place] two times a day for 7 days. omeprazole 20 mg delayed release oral capsule (20 sources) Proton Pump Inhibitor Start: 05-03-2024 End: 11-12-2025 take 1 capsule by mouth once daily as needed Omeprazole 20 mg capsule,delayed release(DR/EC) Active 20 mg PO DAILY as needed for acid reflux July 04, 2024 12:00am Start: 10-16-2021 End: 07-05-2024 take 1 capsule by mouth twice daily before mealtime omeprazole (PRILOSEC) 20 mg capsule Indications: Epigastric pain , GERD without esophagitis Take 1 capsule by mouth twice daily. 1/2 hr before meal. 60 capsule 5 03/05/2022 Active Start: 03-21-2021 End: 08-13-2021 take 1 capsule by mouth once daily before breakfast omeprazole (PRILOSEC) 20 mg capsule Indications: Epigastric pain Take 1 capsule by mouth daily before breakfast. 1/2 hr before meal. 30 capsule 2 03/21/2021 08/13/2021 Discontinued Comment on above: Take 1 capsule by mo ut twice daily. 1/2 hr before meal. Take 1 capsule by mo uth two times a day. 1/2 hr before meal. Take 1 capsule by mo uth two times a day. ondansetron 4 mg oral tablet (4 sources) Serotonin-3 Receptor Antagonist take 1 tablet by mouth every four hours as needed for nausea ondansetron (ZOFRAN) 4 MG tablet Take 4 mg by mouth every 4 hours as needed for Nausea or Vomiting 0 Active OTC PRODUCT (20 sources) OTC PRODUCT Supe r Snooze with Melatonin: Take one capsule by mouth at bedtime as needed. Active OTC PRODUCT Supe r Snooze with Melatonin: Take one capsule by mouth at bedtime as needed. 0 Active Comment on above: Super Snooze with Me latonin: Take one capsule by mouth at bedtime as needed. PARoxetine hydrochloride 10 mg oral tablet (20 sources) Serotonin Reuptake Inhibitor Start: 4 End: 6 take 1 tablet by mouth once daily Paroxetine Hcl 10 mg tablet Active 10 mg PO DAILY March 24, 2024 12:00am [facility] petrolatum 0.41 mg/mg topical ointment (4 sources) Start: 8 mineral oil-hydrophilic petrolatum (AQUAPHOR) ointment Apply topically as needed. 0 08/10/2018 Active phenylephrine hydrochloride 25 mg/ml ophthalmic solution (2 sources) alpha-1 Adrenergic Agonist Start: 3 End: 3 PHENYLephrine 2.5 % 1 Drop (AK-DILATE, VIK-SYNEPHRINE) Start: 02-21-2023 End: 02-21-2023 PHENYLephrine 2.5 % 1 Drop ( AK-DILATE, VIK-SYNEPHRINE) potassium chloride 10 meq extended release oral tablet (20 sources) Start: 09-16-2023 End: 06-17-2024 take 1 tablet by mouth twice daily potassium chloride (K-TAB) 10 mEq tablet Indications: Hypopotassemia Take 1 tablet by mouth two times a day. 180 tablet 3 06/17/2024 Active Start: 05-28-2022 End: 09-12-2023 take 1 tablet by mouth twice daily potassium chloride (K-TAB) 10 mEq tablet Indications: Hypopotassemia Take 1 tablet by mouth twice daily. 180 tablet 3 11/18/2022 Active Start: 12-10-2019 End: 05-26-2022 take 1 tablet by mouth twice daily potassium chloride (K-TAB) 10 mEq tablet Indications: Hypopotassemia Take 1 tablet by mouth twice daily. 90 tablet 3 12/10/2019 09/24/2021 Discontinued Start: 08-10-2018 take 1 tablet by sheron twice daily potassium chloride (KLOR-CON M) 20 MEQ extended release tablet Take 1 tablet by mouth 2 times daily 60 tablet 3 08/10/2018 Active Start: 06-07-2018 take 1 tablet by sheron twice daily Potassium Chloride 10 MEQ tablet Active 10 meq PO TWICE A DAY June 07, 2018 12:00am supplement Comment on above: Take 1 tablet by sheron twice daily. Take 1 tablet by sheron two times a day. proparacaine hydrochloride 5 mg/ml ophthalmic solution (2 sources) Local Anesthetic Start: 08-25-2023 End: 08-25-2023 proparacaine 0.5 % 1 Drop (ALCAINE) Start: 02-21-2023 End: 02-21-2023 proparacaine 0.5 % 1 Drop (A LCAINE) sodium chloride flush 0.9 % injection 3 mL (2 sources) Start: 09-13-2020 sodium chlorid e flush 0.9 % injection 3 mL Start: 09-06-2020 sodium chlorid e flush 0.9 % injection 3 mL spironolactone 25 mg oral tablet (5 sources) Aldosterone Antagonist Start: 03-14-2025 take 1 tablet by mouth once daily spironolactone (ALDACTONE) 25 mg tablet Take 1 tablet by mouth once daily. 90 tablet 1 03/14/2025 Active triamcinolone acetonide 0.001 mg/mg topical ointment (4 sources) Corticosteroid Start: 12-25-2022 End: 01-08-2023 triamcinolone acetonide (KENALOG) 0.1 % ointment Indications: Acute generalized exanthematous pustulosis due to drug Apply to affected area twice daily for 14 days. For up to 2 weeks. 30 g 1 12/25/2022 01/08/2023 Active Comment on above: Apply to affected ar ea twice daily for 14 days. For up to 2 weeks. tropicamide 10 mg/ml ophthalmic solution (2 sources) Anticholinergic Start: 08-25-2023 End: 08-25-2023 tropicamide 1 % 1 Drop (MYDRIACYL) Start: 02-21-2023 End: 02-21-2023 tropicamide 1 % 1 Drop (MYDR IACYL) Completed/Discontinued Medications Medication Drug Class(es) Dates Sig (Normalized) Sig (Original) acetaminophen 325 mg oral tablet (20 sources) Start: 10-08-2024 End: 10-08-2024 take 1 dose by mouth once, then take 4000 mg by mouth once daily 650 mg, ORAL, ONCE, 1 dose, On Fri10/08/24 at 0900, No more than 4000 mg of acetaminophen should be given per day (FROM ALL SOURCES) Start: 10-01-2024 End: 10-01-2024 take 1 dose by mouth once, then take 4000 mg by mouth once daily 650 mg, ORAL, ONCE, 1 dose, On Fri10/01/24 at 1030, No more than 4000 mg of acetaminophen should be given per day (FROM ALL SOURCES) Start: 09-24-2024 End: 09-24-2024 take 1 dose by mouth once, then take 4000 mg by mouth once daily 650 mg, ORAL, ONCE, 1 dose, On Fri09/24/24 at 0900, No more than 4000 mg of acetaminophen should be given per day (FROM ALL SOURCES) Start: 09-17-2024 End: 09-17-2024 take 1 dose by mouth once, then take 4000 mg by mouth once daily 650 mg, ORAL, ONCE, 1 dose, On Fri09/17/24 at 0830, No more than 4000 mg of acetaminophen should be given per day (FROM ALL SOURCES) Start: 09-06-2020 End: 09-06-2020 acetaminophen (TYLENOL) tabl et 1,000 mg take 1 tablet by sheron th every eight hours as needed acetaminophen 650 mg CR tablet Take 650 mg by mouth every 8 hours as needed. Active Comment on above: Take 650 mg by mouth every 8 hours as needed. acetaminophen 325 mg / HYDROcodone bitartrate 5 mg oral tablet (20 sources) Opioid Agonist Start: 2 End: 2 take 0.5-1 tablets by mouth twice daily as needed HYDROcodone-acetaminop hen (NORCO) 5-325 mg per tablet TAKE 1/2 TO 1 (ONE-HALF TO ONE) TABLET BY MOUTH TWICE DAILY NEEDED FOR 30 DAYS 0 01/21/2022 04/22/2022 Discontinued Comment on above: TAKE 1/2 TO 1 (ONE-H JOSE ROBERTO TO ONE) TABLET BY MOUTH TWICE DAILY NEEDED FOR 30 DAYS Take 1 tablet by sheron th twice daily as needed for pain. 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 20 tablet 0 06/05/2022 06/10/2022 Active Comment on above: Take 1 tablet by sheron th every 6 hours as needed for up to 5 days. 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 30 tablet 2 06/16/2022 Active Comment on above: Take 1 tablet by sheron th once daily. TAKE 1 TABLET BY SHERON TH ONCE DAILY amoxicillin 875 mg / clavulanate 125 mg oral tablet (20 sources) Penicillin-class Antibacterial Start: End: take 1 tablet by mouth every twelve hours Amoxicillin-Pot Clavulanate 875-125 mg tablet Discontinued 875 mg PO Q12H 20 0 November 06, 2024 1:00am November 26, 2024 3:05pm Start: 07-02-2024 End: 11-26-2024 Amoxicillin-Pot Clavulanate 875-125 mg tablet Discontinued 1 {tbl} PO TWICE A DAY July 04, 2024 12:00am November 26, 2024 3:05pm aspirin 81 mg delayed release oral tablet (4 sources) Platelet Aggregation Inhibitor, Nonsteroidal Anti-inflammatory Drug Start: 06-11-2018 End: 11-24-2018 take 1 tablet by mouth once daily Aspirin 81 MG tablet Discontinued 81 mg PO DAILY@0800 June 11, 2018 12:00am November 24, 2018 12:01pm atogepant (QULIPTA) 60 mg tablet (20 sources) Start: 07-27-2024 End: 12-28-2024 take 1 tablet by mouth once daily atogepant (QULIPTA) 60 mg tablet Indications: Intractable chronic migraine with aura and without status migrainosus Take 1 tablet (60 mg) by mouth once daily. 30 tablet 07/27/2024 12/28/2024 Discontinued Start: 07-27-2024 take 1 tablet by sheron th once daily atogepant (QULIPTA) 60 mg tablet Indications: Intractable chronic migraine with aura and without status migrainosus Take 1 tablet (60 mg) by mouth once daily. 30 tablet 07/27/2024 Active baclofen 10 mg oral tablet (12 sources) gamma-Aminobutyric Acid-ergic Agonist Start: 05-28-2019 End: 05-31-2021 take 1 tablet by mouth every twelve hours as needed baclofen (LIORESAL) 10 mg tablet Take 1 tablet by mouth twice daily as needed. 180 tablet 1 05/28/2019 05/31/2021 Discontinued Start: 06-07-2018 End: 11-24-2018 take 1 tablet by mouth twice daily Baclofen 10 MG tablet Discontinued 10 mg PO TWICE A DAY June 07, 2018 12:00am November 24, 2018 12:02pm muscle relaxer bifidobacterium animalis [id number] unt / bifidobacterium longum [id number] unt / lactobacillus acidophilus [id number] unt oral capsule (1 source) Start: 01-08-2019 End: 09-20-2020 take 1 capsule by mouth once daily L.acidoph-B.lactis-B.longum (FLORAJEN3) 460 mg (7.5-6- 1.5 bill. cell) cap Indications: BV (bacterial vaginosis) , Vaginal yeast infection Take 1 capsule by mouth once daily. 30 capsule 2 01/08/2019 09/20/2020 Discontinued Biotin (3 sources) Start: 03-24-2024 End: 07-04-2024 biotin Discontinued 1 {tbl} PO DAILY March 24, 2024 12:00am July 04, 2024 4:14am supplement Start: 03-24-2024 End: 07-04-2024 biotin Discontinued 1 {tbl} PO DAILY March 24, 2024 12:00am July 04, 2024 4:14am Start: 03-24-2024 End: 07-04-2024 biotin Discontinued 1 {tbl} PO DAILY March 23, 2024 11:00pm July 04, 2024 3:14am calcium chloride 0.0014 meq/ml / potassium chloride 0.004 meq/ml / sodium chloride 0.103 meq/ml / sodium lactate 0.028 meq/ml injectable solution (1 source) Start: 04-29-2024 End: 04-29-2024 lactated ringers iv infusion cefdinir 300 mg oral capsule (2 sources) Cephalosporin Antibacterial Start: 12-01-2024 End: 04-01-2025 take 1 capsule by mouth twice daily Cefdinir 300 mg capsule Discontinued 300 mg PO TWICE A DAY 4 0 December 01, 2024 12:00am April 01, 2025 5:20pm cefTRIAXone (ROCEPHIN) 1 g IVPB in 50 mL D5W minibag (1 source) Start: 09-06-2020 End: 09-06-2020 cefTRIAXone (ROCEPHIN) 1 g IVPB in 50 mL D5W minibag cloNIDine hydrochloride 0.1 mg oral tablet (20 sources) Central alpha-2 Adrenergic Agonist Start: 04-02-2024 End: 04-02-2025 take 1 tablet by mouth twice daily cloNIDine HCl (CATAPRES) 0.2 mg tablet Take 1 tablet by mouth two times a day. 180 tablet 3 05/03/2024 05/03/2024 Discontinued (Discontinued by Patient) Start: 03-26-2024 End: 08-01-2024 take 1 tablet by mouth twice daily cloNIDine HCl (CATAPRES) 0.1 mg tablet Indications: Essential hypertension Take 1 tablet by mouth two times a day. 180 tablet 05/03/2024 05/18/2024 Discontinued (Discontinued by Patient) diclofenac sodium 0.01 mg/mg topical gel (7 sources) Nonsteroidal Anti-inflammatory Drug Start: 01-12-2021 End: 06-19-2021 apply 2 g topically four times daily diclofenac (VOLTAREN) 1 % topical gel Indications: Chest wall pain Apply 2 g to affected area four times daily. 100 g 1 01/12/2021 06/19/2021 Discontinued Start: 06-11-2018 End: 06-18-2018 take 1 tablet by mouth twice daily at mealtime Diclofenac Sodium 50 MG tablet Discontinued 50 mg PO TWICE DAILY WITH MEALS June 11, 2018 12:00am June 18, 2018 12:22pm Comment on above: Apply 2 g to affecte d area four times daily. diphenhydrAMINE hydrochloride 25 mg oral capsule (10 sources) Histamine-1 Receptor Antagonist Start: 10-08-2024 End: 10-08-2024 take 1 dose by mouth once 50 mg, ORAL, ONCE, 1 dose, On Fri10/08/24 at 0900 Start: 10-01-2024 End: 10-01-2024 take 1 dose by mouth once 50 mg, ORAL, ONCE, 1 dose, O n 10/01/24 at 1030 Start: 09-24-2024 End: 09-24-2024 take 1 dose by mouth once 50 mg, ORAL, ONCE, 1 dose, O n Fri09/24/24 at 0900 Start: 09-17-2024 End: 09-17-2024 take 1 dose by mouth once 50 mg, ORAL, ONCE, 1 dose, O n 09/17/24 at 0830 Start: 09-17-2024 End: 09-17-2024 50 mg, INTRAVENOUS, NEEDE D, 1 dose, Starting on Fri09/17/24 at 0817, Until Fri09/17/24 at 1039, Administer per hypersensitivity/anaphylaxis grading in nursing communication Start: 04-29-2024 End: 04-29-2024 diphenhydrAMINE 12.5-50 mg i njection (BENADRYL) take 1 tablet by sheron th every four hours as needed diphenhydrAMINE (BENADRYL) 25 MG tablet Take 25 mg by mouth every 4 hours as needed for Itching 0 Active docusate sodium 100 mg oral capsule (4 sources) Start: 08-01-2018 End: 11-24-2018 take 1 capsule by mouth once daily Docusate Sodium (Colace) 100 MG capsule Discontinued 100 mg PO DAILY August 01, 2018 1:00am November 24, 2018 12:02pm docusate sodium 50 mg / sennosides, correction 8.6 mg oral tablet (4 sources) Start: 06-11-2018 End: 06-18-2018 Sennosides-Docusate Sodium (Senna-Docusate Sodium Tablet) 1 EACH tablet Discontinued 2 NMA PO TWICE A DAY June 11, 2018 12:00am June 18, 2018 12:22pm 0.4 ml enoxaparin sodium 100 mg/ml prefilled syringe (4 sources) Low Molecular Weight Heparin Start: 06-11-2018 End: 06-18-2018 Enoxaparin (Lovenox) 40 MG/0.4 ML syringe Discontinued 40 mg SQ DAILY June 11, 2018 12:00am June 18, 2018 12:22pm famotidine 20 mg oral tablet (20 sources) Histamine-2 Receptor Antagonist Start: 09-24-2024 End: 09-24-2024 take 1 dose by mouth once 20 mg, ORAL, ONCE, 1 dose, On Fri09/24/24 at 0900 Start: 09-17-2024 End: 09-17-2024 20 mg, INTRAVENOUS, ONCE, 1 dose, On Fri09/17/24 at 1100, REFRIGERATE Start: 07-30-2022 End: 08-19-2022 take 1 tablet by mouth once daily Famotidine 20 mg Tablet Discontinued 20 mg PO DAILY July 30, 2022 1:00am August 19, 2022 5:39pm Start: 05-28-2022 End: 04-17-2023 take 1 tablet by mouth every twelve hours as needed famotidine (PEPCID) 20 mg tablet Take 1 tablet by mouth twice daily as needed. 180 tablet 1 05/28/2022 04/17/2023 Discontinued (Course of therapy completed) Start: 03-05-2022 End: 05-26-2022 take 1 tablet by mouth every twelve hours as needed famotidine (PEPCID) 20 mg tablet Take 1 tablet by mouth twice daily as needed. 180 tablet 1 03/05/2022 05/26/2022 Discontinued Start: 10-02-2020 End: 03-21-2021 take 1 tablet by mouth every twelve hours as needed famotidine (PEPCID) 20 mg tablet Take 1 tablet by mouth twice daily as needed. 180 tablet 1 10/02/2020 03/21/2021 Discontinued Start: 08-21-2020 End: 09-28-2020 take 1 tablet by mouth twice daily as needed famotidine (PEPCID) 20 mg tablet Indications: Pressure in right side of chest Take 1 tablet by mouth twice daily as needed. 60 tablet 1 08/21/2020 09/28/2020 Discontinued Comment on above: Take 1 tablet by sheron th twice daily as needed. 1 ml fentaNYL 0.05 mg/ml injection (1 source) Opioid Agonist Start: 04-29-2024 End: 04-29-2024 fentaNYL 50 mcg/mL 25-100 mcg injection (SUBLIMAZE) furosemide 20 mg oral tablet (8 sources) Loop Diuretic Start: 03-11-2015 End: 11-10-2015 take 10 mg by mouth once daily Furosemide 20 MG tablet Discontinued 10 mg PO DAILY March 11, 2015 12:00am November 10, 2015 3:25pm Start: 03-11-2015 End: 11-10-2015 take 10 mg by mouth once daily Furosemide Discontinued 10 MG PO DAILY March 10, 2015 11:00pm November 10, 2015 2:25pm take 1 tablet by sheron th once daily furosemide (LASIX) 40 MG tablet Take 40 mg by mouth daily 0 Active gadobenate dimeglumine (MULTIHANCE) injection 20 mL (1 source) Start: 08-30-2019 End: 08-30-2019 gadobenate dimeglumine (MULTIHANCE) injection 20 mL gadobutrol (GADAVIST) injection 10 mL (1 source) Start: 04-30-2021 End: 04-30-2021 gadobutrol (GADAVIST) injection 10 mL hydroCHLOROthiazide 12.5 mg oral capsule (20 sources) Thiazide Diuretic Start: 02-11-2023 End: 09-23-2023 take 1 capsule by mouth once daily hydroCHLOROthiazide 12.5 mg capsule Indications: Essential hypertension Take 1 capsule by mouth once daily. 30 capsule 12 02/11/2023 09/23/2023 Discontinued (Other) Start: 11-07-2022 End: 11-07-2022 take 1 tablet by mouth once daily hydroCHLOROthiazide (HYDRODIURIL, ESIDRIX) 50 mg tablet Take 1 tablet by mouth once daily. 30 tablet 5 11/07/2022 11/07/2022 Discontinued Start: 06-17-2018 take 1 tablet by sheron th twice daily HYDROCHLOROTHIAZIDE 25 MG TABS 1 tablet by mouth twice a day hydrochlorothiazide [id number] Roselia Tanner LPN Start: 06-10-2018 End: 11-24-2018 take 1 tablet by mouth once daily Hydrochlorothiazide 25 MG tablet Discontinued 25 mg PO DAILY June 10, 2018 3:38pm November 24, 2018 12:03pm blood pressure/water pill Start: 06-07-2018 End: 06-10-2018 take 1 tablet by mouth twice daily Hydrochlorothiazide 25 MG tablet Discontinued 25 mg PO TWICE A DAY June 07, 2018 12:00am June 10, 2018 11:13am water pill End: 02-11-2023 hydroCHLOROthiazide (HYDRODI URIL, ESIDRIX) 50 mg tablet Take 25 mg by mouth twice daily. 0 02/11/2023 Discontinued take 1 tablet by sheron th twice daily hydroCHLOROthiazide (HYDRODIURIL, ESIDRIX) 50 mg tablet Take 50 mg by mouth twice daily. 0 Active take 1 tablet by sheron th twice daily hydrochlorothiazide (HYDRODIURIL) 12.5 MG tablet Take 12.5 mg by mouth 2 times daily 0 Active Comment on above: Take one tablet by m outh in AM & 1/2 tablet in PM. Take 1 tablet by sheron th once daily. Take 50 mg by mouth twice daily. Take 25 mg by mouth twice daily. Take 1 capsule by mo coh once daily. hydroCHLOROthiazide 25 mg / triamterene 37.5 mg oral tablet (20 sources) Potassium-sparin g Diuretic, Thiazide Diuretic Start: 03-24-20 End: 01-07-20 take 1 tablet by mouth once daily triamterene-hydroCHL OROthiazide (MAXZIDE-25) 37.5-25 mg per tablet Take 1 tablet by mouth once daily. 03/24/2023 01/07/2024 Discontinued Start: 08-02-2020 End: 11-27-2022 take 1 tablet by mouth once daily triamterene-hydrochlorothiazide (MAXZIDE -25MG) 37.5-25 mg per tablet Take 1 tablet by mouth once daily. 90 tablet 08/02/2020 05/31/2021 Discontinued Comment on above: Take 1 tablet by sheron once daily. hydrocortisone 100 mg injection (1 source) Corticosteroid Start: 2023 End: 2023 100 mg, INTRAVENOUS, NEEDED, 1 dose, Starting on Fri09/17/24 at 0817, Until Fri09/17/24 at 1045, Administer per hypersensitivity/anaphy laxis grading in nursing communication lidocaine 25 mg/ml / prilocaine 25 mg/ml topical cream (20 sources) Antiarrhythmic, Amide Local Anesthetic Start: 2021 End: 2022 lidocaine-prilocaine (EMLA) 2.5-2.5 % cream Apply to affected area as needed. 30 g 2 04/17/2023 04/17/2023 Discontinued Comment on above: Apply to affected ar ea as needed. Apply to affected ar ea as needed for up to 7 days. lisinopril 40 mg oral tablet (4 sources) Angiotensin Converting Enzyme Inhibitor Start: 2013 End: 2015 take 1 tablet by mouth twice daily Lisinopril 40 MG tablet Discontinued 40 mg PO TWICE A DAY November 07, 2013 1:00am November 10, 2015 3:29pm methylPREDNISolone 4 mg oral tablet (4 sources) Corticosteroid Start: 2017 End: 2017 Methylprednisolone 4 MG tablet Discontinued 4 mg PO DIRECTED June 11, 2018 12:00am June 18, 2018 12:22pm metoprolol tartrate 100 mg oral tablet (9 sources) beta-Adrenergic Lenore Start: 2017 take 1 tablet by mouth twice daily LOPRESSOR 100 MG TABS 1 tablet by mouth twice a day metoprolol tartrate [id number] Roselia Tanner [facility] Start: 06-07-2018 End: 11-24-2018 take 1 tablet by mouth twice daily Metoprolol Tartrate 50 MG tablet Discontinued 50 mg PO TWICE A DAY June 07, 2018 12:00am November 24, 2018 12:04pm heart pill Start: 11-07-2013 End: 11-10-2015 Metoprolol Tartrate 25 MG ta blet Discontinued 12.5 mg PO TWICE A DAY November 07, 2013 1:00am November 10, 2015 3:26pm Start: 11-07-2013 End: 11-10-2015 take 12.5 mg by mouth twice daily Metoprolol Tartrate Discontinued 12.5 MG PO TWICE A DAY November 07, 2013 12:00am November 10, 2015 2:26pm 5 ml midazolam 1 mg/ml injection (1 source) Benzodiazepine Start: 04-29-2024 End: 04-29-2024 midazolam 1-5 mg injection (VERSED) evmrnncv-fsl-esjk-f a-lutein (1 source) Start: 07-06-2018 take 1 tablet by mouth once daily MULTIVITAMIN WOMEN 50+ TABS 1 tablet by mouth once a day rzyoryfn-kqo-vfby -fa-lutein [id number] Roselia Ciro [facility] NIFEdipine 30 mg osmotic 24 hr extended release oral tablet (6 sources) Dihydropyridine Calcium Channel Lenore Start: 12-09-2022 End: 12-09-2023 take 1 tablet by mouth once daily NIFEdipine ER (PROCARDIA XL) 30 mg 24 hr tablet Indications: Essential hypertension Take 1 tablet by mouth once daily. 90 tablet 3 12/09/2022 12/25/2022 Discontinued (Other) Comment on above: Take 1 tablet by sheron once daily. abuse-deterrent 12 hr oxyCODONE hydrochloride 10 mg extended release oral tablet (8 sources) Opioid Agonist Start: 08-01-2018 End: 11-24-2018 Oxycodone (Oxycontin) 10 MG tablet Discontinued 10 mg PO Q14H as needed for Pain August 01, 2018 1:00am November 24, 2018 12:04pm Start: 06-10-2018 End: 06-18-2018 take 5-10 mg by mouth every four hours as needed for pain Oxycodone 5 MG tablet Discontinued 5 - 10 mg PO EVERY 4 HOURS NEEDED as needed for Severe Pain () 5 0 June 10, 2018 12:00am June 18, 2018 12:21pm Chronic low back pain Low back pain pantoprazole 40 mg delayed release oral tablet (18 sources) Proton Pump Inhibitor Start: 08-19-2022 End: 03-24-2024 take 1 tablet by mouth once daily Pantoprazole (Protonix) 40 mg tablet,delayed release (DR/EC) Discontinued 40 mg PO DAILY 30 4 August 19, 2022 1:00am March 24, 2024 2:12pm Start: 08-11-2018 take 1 tablet by sheron th once daily before breakfast pantoprazole (PROTONIX) 40 MG tablet Take 1 tablet by mouth every morning (before breakfast) 30 tablet 3 08/11/2018 Active take 1 tablet by sheron th once daily in the morning pantoprazole DR (PROTONIX) 20 mg tablet Take 20 mg by mouth every morning. Active perflutren lipid microspheres 1.3 mL in NaCl (PF) 0.9% 10 mL injection (DEFINITY) (4 sources) Start: 09-20-2020 End: 12-20-2021 perflutren lipid microspheres 1.3 mL in NaCl (PF) 0.9% 10 mL injection (DEFINITY) phenazopyridine hydrochloride 200 mg oral tablet (20 sources) Start: 07-27-2024 End: 12-28-2024 take 1 tablet by mouth three times daily as needed phenazopyridine (PYRIDIUM) 200 mg tablet Indications: Burning with urination Take 1 tablet by mouth three times a day as needed. 9 tablet 07/27/2024 12/28/2024 Discontinued polyethylene glycol [id number] mg powder for oral solution (4 sources) Osmotic Laxative Start: 08-01-2018 End: 11-24-2018 take 17 g by mouth once daily Polyethylene Glycol 3350 17 GM Packet Discontinued 17 g PO DAILY August 01, 2018 1:00am November 24, 2018 12:04pm predniSONE 10 mg oral tablet (10 sources) Start: 07-04-2024 End: 11-26-2024 Prednisone 10 mg tablet Discontinued mg PO July 04, 2024 12:00am November 26, 2024 3:10pm Start: 07-02-2024 End: 07-06-2024 predniSONE (DELTASONE) 10 mg tablet Indications: Disorder of labyrinth, unspecified laterality , Acute frontal sinusitis, recurrence not specified Take 40 mg x 3 days, 20 mg x 3 days, 10 mg x 3 days. Take with food, once daily 21 tablet 07/02/2024 07/06/2024 Discontinued (Clinical Decision) Start: 04-17-2023 End: 04-22-2023 take 2 tablets by mouth once daily predniSONE (DELTASONE) 20 mg tablet Take 2 tablets by mouth once daily for 5 days. 10 tablet 0 04/17/2023 04/17/2023 Discontinued Comment on above: Take 2 tablets by mo [facility] once daily for 5 days. 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 30 tablet 2 05/22/2022 04/17/2023 Discontinued (Course of therapy completed) Comment on above: Take 1 tablet by [facility] every 6 hours as needed. psyllium 6000 mg powder for oral suspension (20 sources) Start: End: take 1 dose by mouth twice daily psyllium husk (KONSYL) 6 gram pwpk packet Indications: Diarrhea, unspecified type Take 1 Packet by mouth two times a day. 60 Packet 5 03/04/2024 07/27/2024 Discontinued (Other) rimegepant 75 mg disintegrating oral tablet (20 sources) Start: 024 End: take 1 tablet by mouth once daily as needed rimegepant (NURTEC ODT) 75 mg disintegrating tablet Indications: Intractable chronic migraine with aura and without status migrainosus Take 1 tablet by mouth once daily as needed. 8 tablet 2 07/27/2024 12/28/2024 Discontinued riTUXimab-pvvr 800 mg in NaCl 0.9% 250 mL (RUXIENCE) (1 source) Start: End: 800 mg (rounded from 825 mg = 375 mg/m2 2.2 m2 Treatment Plan BSA from Recorded weight), INTRAVENOUS, ONCE, 1 dose, On Fri10/08/24 at 0930, TOTAL VOLUME - Expires: 10/09/24 @ 0900 RAPID - Infuse 50 ml over 30 minutes then 200 ml over 60 minutes. Refrigerate. riTUXimab-pvvr 800 mg in NaCl 0.9% 620 mL (RUXIENCE) (3 sources) Start: End: 800 mg (rounded from 825 mg = 375 mg/m2 2.2 m2 Treatment Plan BSA from Recorded weight), INTRAVENOUS, ONCE, 1 dose, On Fri10/01/24 at 1100, exp 1100 10/02/24 Infuse at rate of 100mg/hr. If no hypotension, increase rate every 30 minutes by 100mg/hr to a maximum rate of 400mg/hr. (room temp) Refrigerate. Start: 09-24-2024 End: 09-24-2024 800 mg (rounded from 825 mg = 375 mg/m2 2.2 m2 Treatment Plan BSA from Recorded weight), INTRAVENOUS, ONCE, 1 dose, On Fri09/24/24 at 0930, exp 0900 09/25/24 (room temp) Infuse at rate of 50mg/hr. If no hypotension, increase rate every 30 minutes by 50mg/hr to a maximum rate of 400mg/hr. Refrigerate. Start: 09-17-2024 End: 09-17-2024 800 mg (rounded from 825 mg = 375 mg/m2 2.2 m2 Treatment Plan BSA from Recorded weight), INTRAVENOUS, ONCE, 1 dose, On Fri09/17/24 at 0900, exp 0830 09/18/24 (room temp) Infuse at rate of 50mg/hr. If no hypotension, increase rate every 30 minutes by 50mg/hr to a maximum rate of 400mg/hr. Refrigerate. sertraline 50 mg oral tablet (6 sources) Serotonin Reuptake Inhibitor Start: 01-09-2024 End: 02-05-2024 take 0.5 tablet by mouth once daily, then take 1 tablet by mouth once daily sertraline (ZOLOFT) 50 mg tablet Indications: Anxiety with depression Take 1/2 tab once a day orally for one week then 1 tab once a day 90 tablet 3 01/09/2024 02/05/2024 Discontinued (Discontinued by Patient) Start: 01-07-2024 End: 01-06-2025 take 1 tablet by mouth once daily, then take 0.5 tablet by mouth once daily, then take 1 tablet by mouth once daily sertraline (ZOLOFT) 50 mg tablet Indications: Anxiety with depression Take 1 tablet by mouth once daily. Take 1/2 tab once a day orally for one week then 1 tab once a day 90 tablet 3 01/07/2024 01/09/2024 Discontinued Comment on above: Take 1 tablet by sheron th once daily. Take 1/2 tab once a day orally for one week then 1 tab once a day Take 1/2 tab once a day orally for one week then 1 tab once a day 125 ml sodium chloride 9 mg/ml prefilled syringe (8 sources) Start: 09-20-2020 End: 12-20-2021 sodium chloride 0.9 % (flush) 10 mL (BD POSIFLUSH) End: 12-28-2024 sodium chloride (SALINE MIST NASAL) Use in the nose every 6 hours. 12/28/2024 Discontinued sodium chloride (SALINE MIST NASAL) Use in the nose every 6 hours. Active sulfamethoxazole 800 mg / trimethoprim 160 mg oral tablet (1 source) Dihydrofolate Reductase Inhibitor Antibacterial, Sulfonamide Antimicrobial Start: 12-06-2020 End: 12-13-2020 take 1 tablet by mouth twice daily sulfamethoxazole-trimethoprim (BACTRIM DS) 800-160 mg per tablet Indications: Infected sebaceous cyst of skin Take 1 tablet by mouth twice daily for 7 days. 14 tablet 12/06/2020 12/13/2020 tiZANidine 4 mg oral tablet (14 sources) Central alpha-2 Adrenergic Agonist Start: 04-08-2023 tiZANidine (ZANAFLEX) 4 mg tablet Start: 03-24-2023 End: 04-03-2023 take 1 tablet by mouth every eight hours as needed for muscle spasms tiZANidine (ZANAFLEX) 4 mg tablet Indications: Muscle tension pain Take 1 tablet by mouth every 8 hours as needed (muscle spasms) for up to 10 days. 30 tablet 03/24/2023 04/03/2023 Comment on above: Take 1 tablet by sheron th every 8 hours as needed (muscle spasms) for up to 10 days. traMADol hydrochloride 50 mg oral tablet (12 sources) Opioid Agonist Start: End: take 1 tablet by mouth every six hours as needed for pain traMADol (ULTRAM) 50 mg tablet TAKE 1 TABLET BY MOUTH EVERY 6 HOURS NEEDED FOR MODERATE PAIN FOR UP TO 7 DAYS 0 06/18/2021 04/22/2022 Discontinued (Other) take 1 tablet by sheron th every four hours as needed for pain traMADol (ULTRAM) 50 MG tablet Take 50 m g by mouth every 4 hours as needed for Pain.. 0 Active Comment on above: TAKE 1 TABLET BY SHERON TH EVERY 6 HOURS NEEDED FOR MODERATE PAIN FOR UP TO 7 DAYS ZOLMitriptan 5 mg oral tablet (20 sources) Serotonin-1b and Serotonin-1d Receptor Agonist Start: 06-27-2022 End: 04-17-2023 ZOLMitriptan (ZOMIG) 5 mg tablet Take 1 tablet by mouth as needed. 3 tablet 06/27/2022 04/17/2023 Discontinued (Course of therapy completed) Comment on above: Take 1 tablet by sheron th as needed. Problems Active Problems Problem Classification Problem Date Documented Date Episodic/Chronic Abdominal pain (4 sources) Epigastric pain; Translations: [Epigastric pain] Episodic Acute cerebrovascular disease (1 source) Cerebrovascular accident; Translations: [Cerebral infarction due to unspecified occlusion or stenosis of unspecified cerebral artery] 04-01-2025 Chronic Administrative/social admission (1 source) Worried well; Translations: [Person with feared health complaint in whom no diagnosis is made] Episodic Allergic reactions (2 sources) Allergic contact dermatitis due to adhesive; Translations: [Allergic contact dermatitis due to adhesives] Episodic Anxiety disorders (20 sources) Mixed anxiety and depressive disorder; Translations: [Other specified anxiety disorders] Onset: 06-07-2005 Resolved: 12-11-2010 01-07-2024 Chronic Blindness and vision defects (1 source) Eye / vision finding; Translations: [Unspecified visual disturbance] 07-02-2024 Episodic Cataract (20 sources) Bilateral senile combined form cataracts of eyes; Translations: [Combined forms of age-related cataract, bilateral] Onset: 05-13-2014 Resolved: 08-16-2015 12-11-2017 Chronic Chronic kidney disease (20 sources) Chronic kidney disease; Translations: [Chronic kidney disease, unspecified] Onset: 05-31-2022 05-31-2022 Chronic Chronic obstructive pulmonary disease and bronchiectasis (5 sources) Bronchitis; Translations: [Bronchitis, not specified as acute or chronic] Episodic Coagulation and hemorrhagic disorders (20 sources) Hereditary thrombophilia; Translations: [Other primary thrombophilia] Onset: 04-02-2024 04-02-2024 Chronic Disorders of lipid metabolism (20 sources) Hyperlipidemia; Translations: [Hyperlipidemia, unspecified] Onset: 06-07-2005 05-31-2021 Chronic E Codes: Fall (6 sources) Fall; Translations: [Unspecified fall, initial encounter] 11-26-2024 Episodic Esophageal disorders (20 sources) Gastroesophageal reflux disease without esophagitis; Translations: [Gastro-esophageal reflux disease without esophagitis] Onset: 05-31-2022 Chronic Essential hypertension (20 sources) Essential hypertension; Translations: [Essential (primary) hypertension] Onset: 06-07-2005 05-31-2021 Chronic Genitourinary symptoms and ill-defined conditions (20 sources) Incontinence; Translations: [Mixed incontinence] Onset: 12-19-2010 01-16-2012 Chronic Glaucoma (20 sources) Ocular hypertension; Translations: [Ocular hypertension, bilateral] Onset: 05-13-2014 Resolved: 08-16-2015 12-11-2017 Chronic Headache; including migraine (20 sources) Intractable chronic tension headache; Translations: [Chronic tension-type headache, intractable] Onset: 07-07-2019 Resolved: 11-27-2022 07-07-2019 Chronic Heart valve disorders (20 sources) Tricuspid incompetence, non-rheumatic ; Translations: [Nonrheumatic tricuspid (valve) insufficiency] Onset: 05-03-2019 05-03-2019 Chronic Immunizations and screening for infectious disease (3 sources) Needs influenza immunization; Translations: [Encounter for immunization] Episodic Intestinal infection (1 source) Infectious diarrheal disease; Translations: [Infectious gastroenteritis and colitis, unspecified] 04-02-2024 Episodic Malaise and fatigue (14 sources) Fatigue; Translations: [Other fatigue] Onset: 12-01-2024 Episodic Non-Hodgkin`s lymphoma (20 sources) B-cell lymphoma (clinical); Translations: [Unspecified B-cell lymphoma, unspecified site] Onset: 07-24-2021 07-24-2021 Chronic Nonspecific chest pain (9 sources) Chest pain; Translations: [Chest pain, unspecified] 03-21-2021 Episodic Occlusion or stenosis of precerebral arteries (20 sources) Bilateral stenosis of carotid arteries; Translations: [Occlusion and stenosis of bilateral carotid arteries] Onset: 05-03-2019 05-03-2019 Chronic Osteoarthritis (20 sources) Degenerative joint disease involving multiple joints; Translations: [Polyosteoarthritis, unspecified] Onset: 06-07-2005 Resolved: 12-11-2010 06-07-2005 Chronic Other aftercare (1 source) halfway (current) use of anticoagulants; Translations: [Long-term (current) use of anticoagulants] Episodic Other circulatory disease (1 source) Device in situ; Translations: [Presence of other vascular implants and grafts] Chronic Other circulatory disease (1 source) Choking sensation; Translations: [Other specified symptoms and signs involving the circulatory and respiratory systems] 10-27-2023 Episodic Other connective tissue disease (1 source) Muscle tension pain; Translations: [Myalgia, unspecified site] Episodic Other connective tissue disease (2 sources) Mass of soft tissue; Translations: [Other specified soft tissue disorders] 04-02-2024 Episodic Other ear and sense organ disorders (4 sources) Impacted cerumen; Translations: [Impacted cerumen, unspecified ear] 07-06-2024 Episodic Other eye disorders (20 sources) Optic cupping; Translations: [Glaucomatous optic atrophy, unspecified eye] Onset: 08-16-2015 08-16-2015 Chronic Other eye disorders (20 sources) Bilateral vitreous floaters; Translations: [Other vitreous opacities, bilateral] Onset: 08-16-2015 08-16-2015 Chronic Other hereditary and degenerative nervous system conditions (20 sources) Essential tremor; Translations: [Essential tremor] Onset: 01-14-2017 01-14-2017 Chronic Other hereditary and degenerative nervous system conditions (8 sources) Restless legs; Translations: [Restless legs syndrome] 06-10-2018 Chronic Comment on above: she attributes this to peripheral neuropathy but why does she have peripheral neuropathy? Other lower respiratory disease (3 sources) Dyspnea; Translations: [Shortness of breath] Episodic Other lower respiratory disease (2 sources) Cough; Translations: [Acute cough] 11-01-2024 Episodic Other nervous system disorders (20 sources) Idiopathic peripheral neuropathy; Translations: [Other hereditary and idiopathic neuropathies] Onset: 06-07-2005 06-07-2005 Chronic Other nervous system disorders (4 sources) Peripheral nerve disease ; Translations: [Polyneuropathy, unspecified] 04-21-2018 Chronic Other nervous system disorders (6 sources) Neuropathy; Translations: [Polyneuropathy, unspecified] 06-10-2018 Chronic Other nervous system disorders (11 sources) Chronic low back pain; Translations: [Other chronic pain] Onset: 12-28-2015 Resolved: 11-27-2022 11-27-2022 Chronic Other nervous system disorders (1 source) Polyneuropathy, unspecified; Translations: [Neuropathy] Onset: 03-01-2025 Chronic Other nervous system disorders (1 source) Difficulty walking; Translations: [Difficulty in walking, not elsewhere classified] 04-01-2025 Chronic Other nervous system disorders (1 source) Tremor; Translations: [Tremor, unspecified] 12-28-2024 Episodic Other nervous system disorders (2 sources) Other symptoms and signs involving cognitive functions and awareness; Translations: [Other signs and symptoms involving cognition] Onset: 03-01-2025 03-01-2025 Episodic Other non-traumatic joint disorders (2 sources) Pain in left shoulder; Translations: [Pain in joint, shoulder region] Episodic Other nutritional; endocrine; and metabolic disorders (20 sources) Body mass index 40+ - severely obese; Translations: [Body mass index (BMI) 40.0-44.9, adult] Onset: 06-07-2005 06-30-2019 Chronic Other nutritional; endocrine; and metabolic disorders (20 sources) Obesity; Translations: [Other obesity due to excess calories] Onset: 01-02-2017 01-02-2017 Chronic Other nutritional; endocrine; and metabolic disorders (1 source) Severe obesity; Translations: [Morbid (severe) obesity due to excess calories] Chronic Other nutritional; endocrine; and metabolic disorders (4 sources) Morbid obesity; Translations: [Morbid (severe) obesity due to excess calories] 06-10-2018 Chronic Other nutritional; endocrine; and metabolic disorders (1 source) Morbid (severe) obesity due to excess calories; Translations: [Morbid (severe) obesity due to excess calories] Onset: 03-26-2024 Chronic Other nutritional; endocrine; and metabolic disorders (1 source) Body mass index (BMI) 40.0-44.9, adult; Translations: [Body mass index [BMI] 40.0-44.9, adult] Onset: 03-26-2024 Chronic Other skin disorders (2 sources) Mass of neck; Translations: [Localized swelling, mass and lump, neck] 10-27-2023 Episodic Other skin disorders (1 source) Loss of hair; Translations: [Nonscarring hair loss, unspecified] 06-17-2024 Episodic Other skin disorders (1 source) Infection of sebaceous cyst; Translations: [Sebaceous cyst] 12-06-2020 Episodic Other upper respiratory disease (20 sources) Allergic rhinitis; Translations: [Allergic rhinitis, unspecified] Onset: 06-12-2009 06-12-2009 Chronic Other upper respiratory infections (4 sources) Chronic sinusitis; Translations: [Chronic sinusitis, unspecified] 03-15-2024 Chronic Other upper respiratory infections (5 sources) Upper respiratory infection; Translations: [Acute upper respiratory infection] 10-27-2023 Episodic Kari-; endo-; and myocarditis; cardiomyopathy (except that caused by tuberculosis or sexually transmitted disease) (1 source) Heart valve disorder; Translations: [Endocarditis, valve unspecified] 07-08-2023 Chronic Residual codes; unclassified (20 sources) Obstructive sleep apnea syndrome; Translations: [Obstructive sleep apnea (adult) (pediatric)] Onset: 01-17-2017 05-31-2021 Chronic Residual codes; unclassified (9 sources) Sleep apnea; Translations: [Sleep apnea, unspecified] 07-14-2024 Chronic Residual codes; unclassified (4 sources) Chill; Translations: [Chills (without fever)] 03-04-2024 Episodic Residual codes; unclassified (1 source) Edema; Translations: [Edema, unspecified] Episodic Residual codes; unclassified (1 source) Acquired absence of other specified parts of digestive tract; Translations: [Other postprocedural status] Episodic Respiratory failure; insufficiency; arrest (adult) (20 sources) Chronic hypoxemic respiratory failure; Translations: [Chronic respiratory failure with hypoxia] Onset: 04-02-2024 Resolved: 12-28-2024 Chronic Spondylosis; intervertebral disc disorders; other back problems (20 sources) Lumbar spondylosis; Translations: [Spondylosis without myelopathy or radiculopathy, lumbar region] Onset: 04-28-2017 Resolved: 12-28-2024 02-05-2018 Chronic Thyroid disorders (20 sources) Non-toxic multinodular goiter; Translations: [Nontoxic multinodular goiter] Onset: 12-11-2010 Resolved: 01-15-2012 01-01-2011 Chronic Unclassified (1 source) Cough, unspecified; Translations: [Cough, unspecified] Onset: 01-03-2025 Unclassified (1 source) Acute cough; Translations: [Acute cough] Onset: 11-01-2024 Unclassified (1 source) Non-Chemotherapy Treatment Onset: 10-08-2024 Unclassified (1 source) Worsening headaches; Translations: [Worsening headaches] Onset: 07-27-2024 Unclassified (1 source) Intractable chronic migraine with aura and without status migrainosus; Translations: [Intractable chronic migraine with aura and without status migrainosus] Onset: 07-08-2023 Urinary tract infections (3 sources) Acute urinary tract infection; Translations: [Acute cystitis] 07-27-2024 Episodic Viral infection (1 source) COVID-19; Translations: [COVID-19] Onset: 12-06-2024 Past or Other Problems Problem Classification Problem Date Documented Da te Episodic/Chronic Acute and unspecified renal failure (20 sources) Injury of kidney; Translations: [Acute kidney failure, unspecified] Onset: 2 Resolved: 3 Episodic Bacterial infection; unspecified site (20 sources) Infection due to Enterobacteriaceae; Translations: [Infection by methicillin sensitive Staphylococcus aureus] Onset: 8 Resolved: 3 08-31-2018 Episodic Biliary tract disease (20 sources) Acute cholecystitis; Translations: [Acute cholecystitis] Onset: 2 Resolved: 3 Episodic Coagulation and hemorrhagic disorders (20 sources) Secondary thrombocytopenia; Translations: [Other secondary thrombocytopenia] Onset: 2 07-23-2022 Episodic Coma; stupor; and brain damage (20 sources) Acute anoxic encephalopathy; Translations: [Anoxic brain damage, not elsewhere classified] Onset: 1 Resolved: 3 07-08-2023 Chronic Complications of surgical procedures or medical care (20 sources) Postoperative wound abscess; Translations: [Infection following a procedure, other surgical site, initial encounter] Onset: 8 Resolved: 4 08-07-2018 Episodic Conditions associated with dizziness or vertigo (20 sources) Lightheadedness; Translations: [Dizziness and giddiness] Onset: 0 Resolved: 1 Episodic Diseases of mouth; excluding dental (20 sources) Grayson's angina; Translations: [Cellulitis and abscess of mouth] Onset: 1 Resolved: 1 05-19-2021 Episodic Fluid and electrolyte disorders (20 sources) Hypokalemia; Translations: [Hypokalemia] Onset: 1 Resolved: 1 Episodic Genitourinary symptoms and ill-defined conditions (7 sources) Increased frequency of urination; Translations: [Frequency of micturition] Onset: 4 Episodic Headache; including migraine (20 sources) Headache; Translations: [Headache] Onset: 0 Resolved: 3 02-26-2010 Episodic Hypertension with complications and secondary hypertension (20 sources) Hypertensive urgency ; Translations: [Hypertensive urgency] Onset: 3 Resolved: 3 07-08-2023 Chronic Inflammation; infection of eye (except that caused by tuberculosis or sexually transmitteddisease) (20 sources) Meibomianitis; Translations: [Hordeolum internum unspecified eye, unspecified eyelid] Onset: 5 Resolved: 6 11-02-2015 Episodic Lymphadenitis (20 sources) Generalized enlarged lymph nodes; Translations: [Generalized enlarged lymph nodes] Onset: 1 Resolved: 3 05-31-2021 Episodic Mood disorders (20 sources) Depressive disorder; Translations: [Other specified depressive episodes] Onset: 5 Resolved: 1 01-15-2012 Chronic Mycoses (20 sources) Candidal intertrigo; Translations: [Candidiasis of skin and nail] Onset: 3 Resolved: 2 10-16-2021 Episodic Nutritional deficiencies (20 sources) Deficiency of macronutrients; Translations: [Mild protein-calorie malnutrition] Onset: 1 Resolved: 3 05-31-2021 Chronic Other acquired deformities (1 source) Spondylolisthesis L5/S1 level; Translations: [Spondylolisthesis, lumbosacral region] Onset: 8 06-17-2018 Episodic Other acquired deformities (20 sources) Acquired spondylolisthesis; Translations: [Spondylolisthesis, lumbosacral region] Onset: 9 Resolved: 3 03-17-2019 Episodic Other aftercare (20 sources) Long-term current use of anticoagulant; Translations: [joint terminal attack controller (current) use of anticoagulants] Onset: 2 07-08-2023 Episodic Other connective tissue disease (20 sources) History of lumbar fusion; Translations: [Arthrodesis status] Onset: 9 Resolved: 3 03-17-2019 Episodic Other connective tissue disease (20 sources) Poor posture; Translations: [Abnormal posture] Onset: 9 Resolved: 3 03-17-2019 Episodic Other connective tissue disease (20 sources) Pain in left arm; Translations: [Pain in left arm] Onset: 3 Resolved: 3 04-03-2023 Episodic Other connective tissue disease (1 source) Pain in left arm; Translations: [Left arm pain] Onset: 4 Episodic Other connective tissue disease (1 source) Other specified soft tissue disorders; Translations: [Soft tissue mass] Onset: 4 Episodic Other ear and sense organ disorders (20 sources) Bilateral tinnitus; Translations: [Tinnitus, bilateral] Onset: 3 08-17-2013 Episodic Other ear and sense organ disorders (1 source) Impacted cerumen, unspecified ear; Translations: [Impacted cerumen, unspecified laterality] Onset: 4 Episodic Other eye disorders (20 sources) Glaucomatous atrophy of optic disc; Translations: [Glaucomatous optic atrophy, unspecified eye] Onset: 4 Resolved: 5 08-16-2015 Chronic Other eye disorders (20 sources) Tear film insufficiency; Translations: [Dry eye syndrome of unspecified lacrimal gland] Onset: 4 Resolved: 6 08-16-2015 Episodic Other eye disorders (20 sources) Meibomian gland dysfunction of bilateral eyes; Translations: [Meibomian gland dysfunction right eye, upper and lower eyelids] Onset: 6 09-28-2015 Episodic Other gastrointestinal disorders (20 sources) Diarrhea; Translations: [Diarrhea, unspecified] Onset: 8 Resolved: 3 08-04-2018 Episodic Other gastrointestinal disorders (1 source) Diarrhea, unspecified; Translations: [Diarrhea, unspecified type] Onset: 4 Episodic Other injuries and conditions due to external causes (20 sources) Angioedema; Translations: [Angioneurotic edema, initial encounter] Onset: 1 Resolved: 1 05-31-2021 Episodic Other injuries and conditions due to external causes (1 source) Angioneurotic edema, subsequent encounter; Translations: [Angioedema, subsequent encounter] Onset: 4 Episodic Other nervous system disorders (20 sources) Disorder of brain; Translations: [Encephalopathy, unspecified] Onset: 8 Resolved: 3 08-01-2018 Chronic Other nervous system disorders (20 sources) Carpal tunnel syndrome; Translations: [Carpal tunnel syndrome, unspecified upper limb] Onset: 5 Resolved: 1 12-11-2010 Chronic Other nervous system disorders (20 sources) H/O: migraine; Translations: [Personal history of other diseases of the nervous system and sense organs] Onset: 3 Resolved: 4 07-08-2023 Episodic Other nervous system disorders (20 sources) Facial paresthesia; Translations: [Paresthesia of skin] Onset: 3 Resolved: 3 07-08-2023 Episodic Other nutritional; endocrine; and metabolic disorders (20 sources) Obese class II; Translations: [Obesity, unspecified] Onset: 1 Resolved: 4 05-31-2021 Chronic Other nutritional; endocrine; and metabolic disorders (20 sources) Obesity caused by energy imbalance; Translations: [Other obesity due to excess calories] Onset: 7 Resolved: 3 11-27-2022 Chronic Other screening for suspected conditions (not mental disorders or infectious disease) (20 sources) Patient encounter status; Translations: [Encounter for screening mammogram for malignant neoplasm of breast] Onset: 2 Resolved: 3 Episodic Other skin disorders (1 source) Nonscarring hair loss, unspecified; Translations: [Hair loss] Onset: 4 Episodic Phlebitis; thrombophlebitis and thromboembolism (20 sources) H/O: Deep vein thrombosis; Translations: [Personal history of other venous thrombosis and embolism] Onset: 9 Resolved: 5 09-12-2021 Episodic Residual codes; unclassified (20 sources) Altered mental status; Translations: [Altered mental status, unspecified] Onset: 8 Resolved: 3 08-04-2018 Episodic Residual codes; unclassified (5 sources) H/O Spinal surgery; Translations: [Arthrodesis status] Onset: 8 08-04-2018 Episodic Residual codes; unclassified (20 sources) Delirium; Translations: [Disorientation, unspecified] Onset: 1 Resolved: 1 05-31-2021 Episodic Respiratory failure; insufficiency; arrest (adult) (20 sources) Acute respiratory failure; Translations: [Acute respiratory failure with hypoxia] Onset: 1 Resolved: 1 05-31-2021 Episodic Septicemia (except in labor) (7 sources) Sepsis due to Staphylococcus aureus; Translations: [Bacteremia due to Staphylococcus aureus] Resolved: 8 08-10-2018 Episodic Spondylosis; intervertebral disc disorders; other back problems (20 sources) Spinal stenosis; Translations: [Spinal stenosis, thoracolumbar region] Onset: 5 Resolved: 3 11-17-2019 Episodic Syncope (1 source) Syncope and collapse; Translations: [Syncope and collapse] Onset: 4 Episodic Thyroid disorders (2 sources) Atrophy of thyroid - acquired; Translations: [Atrophy of thyroid (acquired)] Onset: 1 11-12-2024 Episodic Unclassified (1 source) Problem Results Test Name Value Interpretation Reference Range Facility Absolute lymphocyte countOrd ered By: ED PROVIDER on 04-01-2025 Lymphocytes Auto (Unsp spec) [#/Vol] 1.40 10*3/uL 0.83-4.51 [facility] Absolute neutrophil countOrd ered By: ED PROVIDER on 04-01-2025 Neutrophils (Bld) [#/Vol] 3.7 10*3/uL 2.0-7.7 [facility] Activated partial thrombopla stin time (aPTT) in platelet poor plasma by coagulation aOrdered By: Chase Jones on 04-01-2025 aPTT Coag (PPP) [Time] 32.1 s 24.1-36.2 [facility] Anion gap in Serum or Plasma Ordered By: Chase Jones on 04-01-2025 Anion gap [Moles/Vol] 11 mmol/L 5-15 [facility] Automated lymphocyte count a s percentage of total leukocytesOrdered By: ED PROVIDER on 04-01-2025 Lymphocytes/100 WBC Auto (Unsp spec) 23.5 % 19-41 [facility] BUN/creatinine ratioOrdered By: Chase Jones on 04-01-2025 Urea nitrogen/Creatinine [Mass ratio] 15.9 mg/mg 10-20 [facility] Basophil percentageOrdered B y: ED PROVIDER on 04-01-2025 Basophils/100 WBC (Bld) 0.2 % 0-1 [facility] Carbon dioxide, total [Moles /volume] in Central venous bloodOrdered By: Chase Jones on 04-01-2025 CO2 [Moles/Vol] 27.5 mmol/L 21.0-32.0 [facility] Chloride assayOrdered By: Xenia Jones on 04-01-2025 Chloride [Moles/Vol] 103 mmol/L 98-108 [facility] Eosinophil percentageOrdered By: ED PROVIDER on 04-01-2025 Eosinophils/100 WBC (Bld) 3.9 % 0-5 [facility] Erythrocyte distribution wid th ratioOrdered By: ED PROVIDER on 04-01-2025 Erythrocyte distribution width (RBC) [Ratio] 12.5 % 11.6-14.6 [facility] Erythrocyte distribution wid th standard deviationOrdered By: ED PROVIDER on 04-01-2025 Erythrocyte distribution width (RBC) [Ratio] 44.5 fl High 35.1-43.9 [facility] Glomerular filtration rate ( GFR) estimation/1.73 sq m using serum, plasma, or whole bOrdered By: Chase Jones on 04-01-2025 GFR/1.73 sq M.predicted among non-blacks MDRD (S/P/Bld) [Vol rate/Area] 64 mL/min/{1.73_m2} >60 [facility] Comment on above: mL/min/1.73m2 CKD-EP I Creatinine Equation (2020) [facility] deOrdered By: Chase Jones on 04-01-2025 Glucose [Mass/Vol] 109 mg/dL High 74-106 [facility] Comment on above: MANAGEMENT OF PATIEN T CARE PER NURSING PROTOCOL Hematocrit Auto (Bld) [Volum e fraction]Ordered By: ED PROVIDER on 04-01-2025 Hematocrit (Bld) [Volume fraction] 41.1 % 37-47 [facility] Hemoglobin measurementOrdere d By: ED PROVIDER on 04-01-2025 Hemoglobin (Bld) [Mass/Vol] 13.4 g/dL 12.0-15.0 [facility] Immature granulocytes/100 WB C Auto (Bld)Ordered By: ED PROVIDER on 04-01-2025 Immature granulocytes/100 WBC (Bld) 0.200 % 0.0-0.9 [facility] Comment on above: IG% - Immature Granu locytes (promyelocytes, myelocytes and metamyelocytes) > 1% indicates that a LEFT SHIFT is Present. International normalized rat io (INR) calculationOrdered By: Chase Jones on 04-01-2025 INR Coag (Bld) [Relative time] 1.4 {INR} [facility] MCV (mean corpuscular volume ) determinationOrdered By: ED PROVIDER on 04-01-2025 MCV (RBC) [Entitic vol] 96.7 fL 81-99 [facility] Mean corpuscular hemoglobin (MCH) determinationOrdered By: ED PROVIDER on 04-01-2025 MCH (RBC) [Entitic mass] 31.5 pg 27.0-32.0 [facility] Mean corpuscular hemoglobin concentration (MCHC) determinationOrdered By: ED PROVIDER on 04-01-2025 MCHC (RBC) [Mass/Vol] 32.6 g/dL 32-36 [facility] Mean platelet volume determi nationOrdered By: ED PROVIDER on 04-01-2025 Platelet mean volume (Bld) [Entitic vol] 10.1 fL 6.2-12.0 [facility] Monocyte percentageOrdered B y: ED PROVIDER on 04-01-2025 Monocytes/100 WBC (Bld) 9.6 % 0-10 [facility] Neutrophil percentageOrdered By: ED PROVIDER on 04-01-2025 Neutrophils/100 WBC (Bld) 62.6 % 47-70 [facility] Nucleated red blood cell per centageOrdered By: ED PROVIDER on 04-01-2025 Nucleated RBC/100 WBC (Bld) [Ratio] 0 % 0-5 [facility] Platelet countOrdered By: ED PROVIDER on 04-01-2025 Platelets (Bld) [#/Vol] 147 10*3/uL Low 150-450 [facility] Potassium measurement (mass/ volume)Ordered By: Chase Jones on 04-01-2025 Potassium (Unsp spec) [Mass/Vol] 4.2 mmol/L 3.3-5.1 [facility] Prothrombin timeOrdered By: Chase Jones on 04-01-2025 PT Coag (PPP) [Time] 17.0 s High 11.7-14.9 [facility] RBC Auto (Bld) [#/Vol]Ordere d By: ED PROVIDER on 04-01-2025 RBC (Bld) [#/Vol] 4.25 10*6/uL 4.2-5.4 [facility] Serum creatinine measurement (mass/volume)Ordered By: Chase Jones on 04-01-2025 Creatinine [Mass/Vol] 0.91 mg/dL 0.70-1.20 [facility] Serum glucose measurement (m ass/volume)Ordered By: Chase Jones on 04-01-2025 Glucose [Mass/Vol] 107 mg/dL High 70-99 [facility] Serum or plasma calcium cirilo urement (mass/volume)Ordered By: Chase Jones on 04-01-2025 Calcium [Mass/Vol] 9.9 mg/dL 7.6-11.0 [facility] Serum or plasma urea nitroge n measurement (mass/volume)Ordered By: Chase Jones on 04-01-2025 Urea nitrogen [Mass/Vol] 14 mg/dL 4-19 [facility] Sodium levelOrdered By: Chasemelanie Jones on 04-01-2025 Sodium [Moles/Vol] 141 mmol/L 133-145 [facility] Troponin T.cardiac [Mass/vol ume] in Serum or Plasma by High sensitivity methodOrdered By: Chase Jones on 04-01-2025 Troponin T.cardiac High sensitivity method [Mass/Vol] 11 ng/L <14 [facility] Troponin T.cardiac High sensitivity method [Mass/Vol] 12 ng/L <14 [facility] Comment on above: Delta: 18 on 5-1405 White blood cell (WBC) count Ordered By: ED PROVIDER on 04-01-2025 WBC (Bld) [#/Vol] 6.0 10*3/uL 4.4-11.0 [facility] Absolute lymphocyte countOrd ered By: Rafat Casper on 12-15-2024 Lymphocytes Auto (Unsp spec) [#/Vol] 1.17 10*3/uL 0.83-4.51 [facility] Absolute neutrophil countOrd ered By: Rafat Casper on 12-15-2024 Neutrophils (Bld) [#/Vol] 2.6 10*3/uL 2.0-7.7 [facility] Anion gap in Serum or Plasma Ordered By: Rafat Casper on 12-15-2024 Anion gap [Moles/Vol] 10 mmol/L 5-15 [facility] Automated lymphocyte count a s percentage of total leukocytesOrdered By: Rafat Casper on 12-15-2024 Lymphocytes/100 WBC Auto (Unsp spec) 24.9 % 19-41 [facility] BUN/creatinine ratioOrdered By: Rafat Casper on 12-15-2024 Urea nitrogen/Creatinine [Mass ratio] 2.6 mg/mg Low 10-20 [facility] Basophil percentageOrdered B y: Rafat Casper on 12-15-2024 Basophils/100 WBC (Bld) 0.2 % 0-1 [facility] Carbon dioxide, total [Moles /volume] in Central venous bloodOrdered By: Rafat Casper on 12-15-2024 CO2 [Moles/Vol] 23.0 mmol/L 21.0-32.0 [facility] Chloride assayOrdered By: Robert Casper on 12-15-2024 Chloride [Moles/Vol] 109 mmol/L High 98-108 [facility] Eosinophil percentageOrdered By: monikawascofrannie Casper on 12-15-2024 Eosinophils/100 WBC (Bld) 6.2 % High 0-5 [facility] Erythrocyte distribution wid th ratioOrdered By: maureen Casper on 12-15-2024 Erythrocyte distribution width (RBC) [Ratio] 13.7 % 11.6-14.6 [facility] Erythrocyte distribution wid th standard deviationOrdered By: monikawascofrannie Casper on 12-15-2024 Erythrocyte distribution width (RBC) [Ratio] 47.0 fl High 35.1-43.9 [facility] Glomerular filtration rate ( GFR) estimation/1.73 sq m using serum, plasma, or whole bOrdered By: Rafat Casper on 12-15-2024 GFR/1.73 sq M.predicted among non-blacks MDRD (S/P/Bld) [Vol rate/Area] 75 mL/min/{1.73_m2} >60 [facility] Comment on above: mL/min/1.73m2 CKD-EP I Creatinine Equation (2020) Hematocrit Auto (Bld) [Volum e fraction]Ordered By: Rafat Casper on 12-15-2024 Hematocrit (Bld) [Volume fraction] 32.9 % Low 37-47 [facility] Hemoglobin measurementOrdere d By: Rafat Casper on 12-15-2024 Hemoglobin (Bld) [Mass/Vol] 10.4 g/dL Low 12.0-15.0 [facility] Immature granulocytes/100 WB C Auto (Bld)Ordered By: Rafat Casper on 12-15-2024 Immature granulocytes/100 WBC (Bld) 0.600 % 0.0-0.9 [facility] Comment on above: IG% - Immature Granu locytes (promyelocytes, myelocytes and metamyelocytes) > 1% indicates that a LEFT SHIFT is Present. MCV (mean corpuscular volume ) determinationOrdered By: Rafat Casper on 12-15-2024 MCV (RBC) [Entitic vol] 97.6 fL 81-99 [facility] Mean corpuscular hemoglobin (MCH) determinationOrdered By: monikawascofrannie Casper on 12-15-2024 MCH (RBC) [Entitic mass] 30.9 pg 27.0-32.0 [facility] Mean corpuscular hemoglobin concentration (MCHC) determinationOrdered By: Rafat Casper on 12-15-2024 MCHC (RBC) [Mass/Vol] 31.6 g/dL Low 32-36 [facility] Mean platelet volume determi nationOrdered By: Rafat Casper on 12-15-2024 Platelet mean volume (Bld) [Entitic vol] 10.4 fL 6.2-12.0 [facility] Monocyte percentageOrdered B y: Rafat Casper on 12-15-2024 Monocytes/100 WBC (Bld) 13.2 % High 0-10 [facility] Neutrophil percentageOrdered By: maureen Casper on 12-15-2024 Neutrophils/100 WBC (Bld) 54.9 % 47-70 [facility] Nucleated red blood cell per centageOrdered By: Rafat Casper on 12-15-2024 Nucleated RBC/100 WBC (Bld) [Ratio] 0 % 0-5 [facility] Platelet countOrdered By: Robert Casper on 12-15-2024 Platelets (Bld) [#/Vol] 142 10*3/uL Low 150-450 [facility] Potassium measurement (mass/ volume)Ordered By: Rafat Casper on 12-15-2024 Potassium (Unsp spec) [Mass/Vol] 4.1 mmol/L 3.3-5.1 [facility] RBC Auto (Bld) [#/Vol]Ordere d By: Rafat Casper on 12-15-2024 RBC (Bld) [#/Vol] 3.37 10*6/uL Low 4.2-5.4 [facility] Serum creatinine measurement (mass/volume)Ordered By: Rafat Casper on 12-15-2024 Creatinine [Mass/Vol] 0.79 mg/dL 0.70-1.20 [facility] Serum glucose measurement (m ass/volume)Ordered By: Rafat Casper on 12-15-2024 Glucose [Mass/Vol] 99 mg/dL 70-99 [facility] Serum or plasma calcium cirilo urement (mass/volume)Ordered By: Rafat Casper on 12-15-2024 Calcium [Mass/Vol] 9.1 mg/dL 7.6-11.0 [facility] Serum or plasma urea nitroge n measurement (mass/volume)Ordered By: Rafat Casper on 12-15-2024 Urea nitrogen [Mass/Vol] 2 mg/dL Low 4-19 [facility] Sodium levelOrdered By: Robertmonika louis Pennie on 12-15-2024 Sodium [Moles/Vol] 142 mmol/L 133-145 [facility] White blood cell (WBC) count Ordered By: Rafat Casper on 12-15-2024 WBC (Bld) [#/Vol] 4.7 10*3/uL 4.4-11.0 [facility] Absolute lymphocyte countOrd ered By: Rafat Casper on 12-08-2024 Lymphocytes Auto (Unsp spec) [#/Vol] 0.97 10*3/uL 0.83-4.51 [facility] Absolute neutrophil countOrd ered By: Rafat Casper on 12-08-2024 Neutrophils (Bld) [#/Vol] 2.3 10*3/uL 2.0-7.7 [facility] Anion gap in Serum or Plasma Ordered By: Rafat Casper on 12-08-2024 Anion gap [Moles/Vol] 11 mmol/L 5-15 [facility] Automated lymphocyte count a s percentage of total leukocytesOrdered By: Rafat Casper on 12-08-2024 Lymphocytes/100 WBC Auto (Unsp spec) 22.9 % 19-41 [facility] BUN/creatinine ratioOrdered By: Rafat Casper on 12-08-2024 Urea nitrogen/Creatinine [Mass ratio] 14.9 mg/mg 10-20 [facility] Basophil percentageOrdered B y: Rafat Casper on 12-08-2024 Basophils/100 WBC (Bld) 0.5 % 0-1 [facility] Carbon dioxide, total [Moles /volume] in Central venous bloodOrdered By: Rafat Casper on 12-08-2024 CO2 [Moles/Vol] 22.9 mmol/L 21.0-32.0 [facility] Chloride assayOrdered By: Robert Casper on 12-08-2024 Chloride [Moles/Vol] 106 mmol/L 98-108 [facility] Eosinophil percentageOrdered By: Rafat Casper on 12-08-2024 Eosinophils/100 WBC (Bld) 5.7 % High 0-5 [facility] Erythrocyte distribution wid th ratioOrdered By: Rafat Casper on 12-08-2024 Erythrocyte distribution width (RBC) [Ratio] 12.7 % 11.6-14.6 [facility] Erythrocyte distribution wid th standard deviationOrdered By: Rafat Casper on 12-08-2024 Erythrocyte distribution width (RBC) [Ratio] 44.6 fl High 35.1-43.9 [facility] Glomerular filtration rate ( GFR) estimation/1.73 sq m using serum, plasma, or whole bOrdered By: Rafat Casper on 12-08-2024 GFR/1.73 sq M.predicted among non-blacks MDRD (S/P/Bld) [Vol rate/Area] 71 mL/min/{1.73_m2} >60 [facility] Comment on above: mL/min/1.73m2 CKD-EP I Creatinine Equation (2020) Hematocrit Auto (Bld) [Volum e fraction]Ordered By: Rafat Casper on 12-08-2024 Hematocrit (Bld) [Volume fraction] 33.1 % Low 37-47 [facility] Hemoglobin measurementOrdere d By: Rafat Casper on 12-08-2024 Hemoglobin (Bld) [Mass/Vol] 10.5 g/dL Low 12.0-15.0 [facility] Immature granulocytes/100 WB C Auto (Bld)Ordered By: Rafat Casper on 12-08-2024 Immature granulocytes/100 WBC (Bld) 2.100 % High 0.0-0.9 [facility] Comment on above: IG% - Immature Granu locytes (promyelocytes, myelocytes and metamyelocytes) > 1% indicates that a LEFT SHIFT is Present. MCV (mean corpuscular volume ) determinationOrdered By: Rafat Casper on 12-08-2024 MCV (RBC) [Entitic vol] 96.5 fL 81-99 [facility] Mean corpuscular hemoglobin (MCH) determinationOrdered By: Rafat Casper on 12-08-2024 MCH (RBC) [Entitic mass] 30.6 pg 27.0-32.0 [facility] Mean corpuscular hemoglobin concentration (MCHC) determinationOrdered By: Rafat Casper on 12-08-2024 MCHC (RBC) [Mass/Vol] 31.7 g/dL Low 32-36 [facility] Mean platelet volume determi nationOrdered By: Rafat Casper on 12-08-2024 Platelet mean volume (Bld) [Entitic vol] 10.4 fL 6.2-12.0 [facility] Monocyte percentageOrdered B y: Rafat Casper on 12-08-2024 Monocytes/100 WBC (Bld) 13.7 % High 0-10 [facility] Neutrophil percentageOrdered By: Rafat Casper on 12-08-2024 Neutrophils/100 WBC (Bld) 55.1 % 47-70 [facility] Nucleated red blood cell per centageOrdered By: Rafat Casper on 12-08-2024 Nucleated RBC/100 WBC (Bld) [Ratio] 0 % 0-5 [facility] Platelet countOrdered By: Robert Casper on 12-08-2024 Platelets (Bld) [#/Vol] 152 10*3/uL 150-450 [facility] Potassium measurement (mass/ volume)Ordered By: Rafat Casper on 12-08-2024 Potassium (Unsp spec) [Mass/Vol] 4.2 mmol/L 3.3-5.1 [facility] RBC Auto (Bld) [#/Vol]Ordere d By: Rafat Casper on 12-08-2024 RBC (Bld) [#/Vol] 3.43 10*6/uL Low 4.2-5.4 [facility] Serum creatinine measurement (mass/volume)Ordered By: Rafat Casper on 12-08-2024 Creatinine [Mass/Vol] 0.83 mg/dL 0.70-1.20 [facility] Serum glucose measurement (m ass/volume)Ordered By: Rafat Casper on 12-08-2024 Glucose [Mass/Vol] 97 mg/dL 70-99 [facility] Serum or plasma calcium cirilo urement (mass/volume)Ordered By: Rafat Casper on 12-08-2024 Calcium [Mass/Vol] 9.1 mg/dL 7.6-11.0 [facility] Serum or plasma urea nitroge n measurement (mass/volume)Ordered By: Rafat Casper on 12-08-2024 Urea nitrogen [Mass/Vol] 12 mg/dL 4-19 [facility] Sodium levelOrdered By: Shalini Casper on 12-08-2024 Sodium [Moles/Vol] 140 mmol/L 133-145 [facility] TSH DL <= 0.005 mIU/L QnOrde red By: Rafat Casper on 12-08-2024 TSH Qn 4.280 uIU/mL High 0.300-4.200 [facility] White blood cell (WBC) count Ordered By: Rafat Casper on 12-08-2024 WBC (Bld) [#/Vol] 4.2 10*3/uL Low 4.4-11.0 [facility] Absolute lymphocyte countOrd ered By: Rafat Casper on 12-02-2024 Lymphocytes Auto (Unsp spec) [#/Vol] 0.88 10*3/uL 0.83-4.51 [facility] Absolute neutrophil countOrd ered By: Rafat Casper on 12-02-2024 Neutrophils (Bld) [#/Vol] 2.1 10*3/uL 2.0-7.7 [facility] Anion gap in Serum or Plasma Ordered By: Rafat Blackwoodcarolynflavio on 12-02-2024 Anion gap [Moles/Vol] 12 mmol/L 5-15 [facility] Automated lymphocyte count a s percentage of total leukocytesOrdered By: Rafat Blackwoodcarolynflavio on 12-02-2024 Lymphocytes/100 WBC Auto (Unsp spec) 24.0 % 19-41 [facility] BUN/creatinine ratioOrdered By: Robertmonikalouis Jaisoncarolynflavio on 12-02-2024 Urea nitrogen/Creatinine [Mass ratio] 27.6 mg/mg High 10-20 [facility] Basophil percentageOrdered B y: Rafat Hardingflavio on 12-02-2024 Basophils/100 WBC (Bld) 0.0 % 0-1 [facility] Bilirubin, totalOrdered By: Shalinilouis Jaisoncarolynflavio on 12-02-2024 Bilirubin [Mass/Vol] 0.21 mg/dL 0.00-1.30 [facility] Carbon dioxide, total [Moles /volume] in Central venous bloodOrdered By: Shalinijoséfrannie Blackwoodcarolynflavio on 12-02-2024 CO2 [Moles/Vol] 22.4 mmol/L 21.0-32.0 [facility] Chloride assayOrdered By: Robert monikalouis Blackwoodcarolynflavio on 12-02-2024 Chloride [Moles/Vol] 105 mmol/L 98-108 [facility] Eosinophil percentageOrdered By: Shalinilouis Jaisoncarolynflavio on 12-02-2024 Eosinophils/100 WBC (Bld) 4.4 % 0-5 [facility] Erythrocyte distribution wid th ratioOrdered By: Rafat Casper on 12-02-2024 Erythrocyte distribution width (RBC) [Ratio] 12.8 % 11.6-14.6 [facility] Erythrocyte distribution wid th standard deviationOrdered By: Rafat Casper on 12-02-2024 Erythrocyte distribution width (RBC) [Ratio] 43.9 fl 35.1-43.9 [facility] Glomerular filtration rate ( GFR) estimation/1.73 sq m using serum, plasma, or whole bOrdered By: Rafat Casper on 12-02-2024 GFR/1.73 sq M.predicted among non-blacks MDRD (S/P/Bld) [Vol rate/Area] 89 mL/min/{1.73_m2} >60 [facility] Comment on above: mL/min/1.73m2 CKD-EP I Creatinine Equation (2020) Hematocrit Auto (Bld) [Volum e fraction]Ordered By: Rafat Casper on 12-02-2024 Hematocrit (Bld) [Volume fraction] 32.0 % Low 37-47 [facility] Hemoglobin measurementOrdere d By: Rafat Casper on 12-02-2024 Hemoglobin (Bld) [Mass/Vol] 10.3 g/dL Low 12.0-15.0 [facility] Immature granulocytes/100 WB C Auto (Bld)Ordered By: Rafat Casper on 12-02-2024 Immature granulocytes/100 WBC (Bld) 1.600 % High 0.0-0.9 [facility] Comment on above: IG% - Immature Granu locytes (promyelocytes, myelocytes and metamyelocytes) > 1% indicates that a LEFT SHIFT is Present. Laboratory - Chemistry and C hemistry - challengeOrdered By: Rafat Casper on 12-02-2024 AST [Catalytic activity/Vol] 22 U/L <32 [facility] MCV (mean corpuscular volume ) determinationOrdered By: Rafat Casper 12-02-2024 MCV (RBC) [Entitic vol] 94.4 fL 81-99 [facility] Mean corpuscular hemoglobin (MCH) determinationOrdered By: Rafat Casper on 12-02-2024 MCH (RBC) [Entitic mass] 30.4 pg 27.0-32.0 [facility] Mean corpuscular hemoglobin concentration (MCHC) determinationOrdered By: Rafat Casper on 12-02-2024 MCHC (RBC) [Mass/Vol] 32.2 g/dL 32-36 [facility] Mean platelet volume determi nationOrdered By: Rafat Blackwoodcarolynflavio on 12-02-2024 Platelet mean volume (Bld) [Entitic vol] 10.4 fL 6.2-12.0 [facility] Monocyte percentageOrdered B y: Rafat Blackwoodcarolynflavio on 12-02-2024 Monocytes/100 WBC (Bld) 13.1 % High 0-10 [facility] Neutrophil percentageOrdered By: Rafat Casper on 12-02-2024 Neutrophils/100 WBC (Bld) 56.9 % 47-70 [facility] Nucleated red blood cell per centageOrdered By: Rafat Casper on 12-02-2024 Nucleated RBC/100 WBC (Bld) [Ratio] 0 % 0-5 [facility] Platelet countOrdered By: Robert victor hugofrannie Blackwoodcarolynflavio on 12-02-2024 Platelets (Bld) [#/Vol] 124 10*3/uL Low 150-450 [facility] Potassium measurement (mass/ volume)Ordered By: Rafat Casper on 12-02-2024 Potassium (Unsp spec) [Mass/Vol] 4.2 mmol/L 3.3-5.1 [facility] RBC Auto (Bld) [#/Vol]Ordere d By: Rafat Casper on 12-02-2024 RBC (Bld) [#/Vol] 3.39 10*6/uL Low 4.2-5.4 [facility] Serum creatinine measurement (mass/volume)Ordered By: Rafat Casper on 12-02-2024 Creatinine [Mass/Vol] 0.64 mg/dL Low 0.70-1.20 [facility] Serum globulin measurementOr dered By: Rafat Casper on 12-02-2024 Globulin (S) [Mass/Vol] 2.3 g/dL 2.2-4.2 [facility] Serum glucose measurement (m ass/volume)Ordered By: Rafat Casper on 12-02-2024 Glucose [Mass/Vol] 107 mg/dL High 70-99 [facility] Serum or plasma alanine rice otransferase (ALT) measurementOrdered By: Rafat Casper on 12-02-2024 ALT [Catalytic activity/Vol] 6 U/L <35 [facility] Serum or plasma albumin cirilo urement (mass/volume)Ordered By: Rafat Casper on 12-02-2024 Albumin [Mass/Vol] 3.2 g/dL Low 3.4-4.8 [facility] Serum or plasma albumin/glob ulin mass ratioOrdered By: Rafat Casper 12-02-2024 Albumin/Globulin [Mass ratio] 1.4 {ratio} 0.9-2.4 [facility] Serum or plasma alkaline anitha sphatase measurementOrdered By: Rafat Casper on 12-02-2024 ALP [Catalytic activity/Vol] 53 U/L 35-104 [facility] Serum or plasma calcium cirilo urement (mass/volume)Ordered By: Rafat Casper 12-02-2024 Calcium [Mass/Vol] 9.2 mg/dL 7.6-11.0 [facility] Serum or plasma urea nitroge n measurement (mass/volume)Ordered By: Rafat Casper 12-02-2024 Urea nitrogen [Mass/Vol] 18 mg/dL 4-19 [facility] Sodium levelOrdered By: Shalini Casper on 12-02-2024 Sodium [Moles/Vol] 139 mmol/L 133-145 [facility] Total proteinOrdered By: Ray Casper on 12-02-2024 Protein [Mass/Vol] 5.5 g/dL Low 5.9-8.4 [facility] White blood cell (WBC) count Ordered By: Rafat Casper 12-02-2024 WBC (Bld) [#/Vol] 3.7 10*3/uL Low 4.4-11.0 [facility] Absolute neutrophil countOrd ered By: Alysha Miguel on 12-01-2024 Neutrophils (Bld) [#/Vol] 3.2 10*3/uL 2.0-7.7 [facility] Anion gap in Serum or Plasma Ordered By: Alysha Miguel on 12-01-2024 Anion gap [Moles/Vol] 12 mmol/L 5-15 [facility] BUN/creatinine ratioOrdered By: Alysha Miguel on 12-01-2024 Urea nitrogen/Creatinine [Mass ratio] 23.4 mg/mg High 10- [facility] Basic Metabolic Profile (BMP )on 12-01-2024 BUN/CRE 23.4 RATIO High - [facility] Comment on above: Performed By: #### L 100.0100, L501.5200, L500.2500 #### [facility] [address] [place], [address] Calcium [Mass/Vol] 9.2 mg/dL Normal 7.6-11.0 [facility] Comment on above: Performed By: #### L 100.0100, [id number], L500.2500 #### [facility] [address] [place], [address] Chloride [Moles/Vol] 104 mmol/L Normal 98-108 [facility] Comment on above: Performed By: #### L 100.0100, [id number], L500.2500 #### [facility] [address] [place], [address] CO2 [Moles/Vol] 23.0 mmol/L Normal 21.0-32.0 [facility] Comment on above: Performed By: #### L 100.0100, [id number], [id number] #### [facility] [address] [place], [address] Creatinine [Mass/Vol] 0.70 mg/dL Normal 0.70-1.20 [facility] Comment on above: Performed By: #### L 100.0100, [id number], L500.2500 #### [facility] [address] [place], [address] ECRCL 64.53 ml/min Normal 50-250 [facility] Comment on above: Performed By: #### L 100.0100, [id number], [id number] #### [facility] [address] [place], [address] GAP 12 Normal 5-15 [facility] Comment on above: Performed By: #### L 100.0100, [id number], L500.2500 #### [facility] [address] [place], [address] GFR/1.73 sq M.predicted among non-blacks MDRD (S/P/Bld) [Vol rate/Area] 87 mL/min/{1.73_m2} Normal >60 [facility] Comment on above: Result Comment: mL/m in/1.73m2 CKD-EPI Creatinine Equation (2020) Performed By: #### L 100.0100, [id number], L500.2500 #### [facility] [address] [place], [address] Glucose [Mass/Vol] 106 mg/dL High 70-99 [facility] Comment on above: Performed By: #### L 100.0100, [id number], [id number] #### [facility] [address] [place], [address] Potassium [Moles/Vol] 4.7 mmol/L Normal 3.3-5.1 [facility] Comment on above: Performed By: #### L 100.0100, [id number], L500.2500 #### [facility] [address] [place], [address] Sodium [Moles/Vol] 138 mmol/L Normal 133-145 [facility] Comment on above: Performed By: #### L 100.0100, [id number], [id number] #### [facility] [address] [place], [address] Urea nitrogen [Mass/Vol] 16 mg/dL Normal 4-19 [facility] Comment on above: Performed By: #### L 100.0100, [id number], L500.2500 #### [facility] [address] [place], [address] Basophil percentageOrdered B y: Alysha Miguel on 12-01-2024 Basophils/100 WBC (Bld) 0.0 % 0-1 [facility] CBC W/Diff, Automatedon 11-20 Absolute Lymph 0.71 X10 3/uL Low 0.83-4.51 [facility] Comment on above: Performed By: #### L 100.0100, [id number], L500.2500 #### [facility] [address] [place], [address] Absolute Neut 3.2 X10 3/uL Normal 2.0-7.7 [facility] Comment on above: Performed By: #### L 100.0100, [id number], L500.2500 #### [facility] [address] [place], [address] Basophils/100 WBC (Bld) 0.0 % Normal 0-1 [facility] Comment on above: Performed By: #### L 100.0100, [id number], [id number] #### [facility] [address] [place], [address] Eosinophils/100 WBC (Bld) 4.9 % Normal 0-5 [facility] Comment on above: Performed By: #### L 100.0100, [id number], L500.2500 #### [facility] [address] [place], [address] Erythrocyte distribution width (RBC) [Ratio] 12.8 % Normal 11.6-14.6 [facility] Comment on above: Performed By: #### L 100.0100, [id number], [id number] #### [facility] [address] [place], [address] Hematocrit (Bld) [Volume fraction] 34.0 % Low 37-47 [facility] Comment on above: Performed By: #### L 100.0100, [id number], L500.2500 #### [facility] [address] [place], [address] Hemoglobin (Bld) [Mass/Vol] 10.8 g/dL Low 12.0-15.0 [facility] Comment on above: Performed By: #### L 100.0100, [id number], L500.2500 #### [facility] [address] [place], [address] IG% 1.100 High 0.0-0.9 [facility] Comment on above: Result Comment: IG% - Immature Granulocytes (promyelocytes, myelocytes and metamyelocytes) > 1% indicates that a LEFT SHIFT is Present. Performed By: #### L 100.0100, [id number], L500.2500 #### [facility] [address] [place], [address] Lymphocytes/100 WBC (Bld) 15.1 % Low 19-41 [facility] Comment on above: Performed By: #### L 100.0100, L501.4020, L500.2500 #### [facility] [address] [place], [address] MCH (RBC) [Entitic mass] 30.3 pg Normal 27.0-32.0 [facility] Comment on above: Performed By: #### L 100.0100, L501.4020, L500.2500 #### [facility] [address] [place], [address] MCHC (RBC) [Mass/Vol] 31.8 g/dL Low 32-36 [facility] Comment on above: Performed By: #### L 100.0100, L501.4020, L500.2500 #### [facility] [address] [place], [address] MCV (RBC) [Entitic vol] 95.2 fL Normal 81-99 [facility] Comment on above: Performed By: #### L 100.0100, L501.4020, L500.2500 #### [facility] [address] [place], [address] Monocytes/100 WBC (Bld) 10.6 % High 0-10 [facility] Comment on above: Performed By: #### L 100.0100, L501.4020, L500.2500 #### [facility] [address] [place], [address] Neutrophils/100 WBC (Bld) 68.3 % Normal 47-70 [facility] Comment on above: Performed By: #### L 100.0100, L501.4020, L500.2500 #### [facility] [address] [place], [address] Nucleated RBC (Bld) [#/Vol] 0 10*3/uL Normal 0-5 [facility] Comment on above: Performed By: #### L 100.0100, L501.4020, L500.2500 #### [facility] [address] [place], [address] Platelet mean volume (Bld) [Entitic vol] 10.5 fL Normal 6.2-12.0 [facility] Comment on above: Performed By: #### L 100.0100, L501.4020, L500.2500 #### [facility] [address] [place], [address] Platelets (Bld) [#/Vol] 129 10*3/uL Low 150-450 [facility] Comment on above: Performed By: #### L 100.0100, L501.4020, L500.2500 #### [facility] [address] [place], [address] RBC (Bld) [#/Vol] 3.57 10*6/uL Low 4.2-5.4 [facility] Comment on above: Performed By: #### L 100.0100, L501.4020, L500.2500 #### [facility] [address] [place], [address] RDW SD 44.6 fl High 35.1-43.9 [facility] Comment on above: Performed By: #### L 100.0100, L501.4020, L500.2500 #### [facility] [address] [place], [address] WBC (Bld) [#/Vol] 4.7 10*3/uL Normal 4.4-11.0 [facility] Comment on above: Performed By: #### L 100.0100, L501.4020, L500.2500 #### [facility] [address] [place], [address] Carbon dioxide, total [Moles /volume] in Central venous bloodOrdered By: Alysha Miguel on 12-01-2024 CO2 [Moles/Vol] 23.0 mmol/L 21.0-32.0 [facility] Chloride assayOrdered By: Jose Miguel on 12-01-2024 Chloride [Moles/Vol] 104 mmol/L 98-108 [facility] Culture, Blood (WB)on 2024 CUB Blood cultures x2, from two different sites No growth in 5 days. Normal [facility] Comment on above: Performed By: #### L 100.0100, L501.4020, L500.2500 #### [facility] [address] [place], [address] Eosinophil percentageOrdered By: Alysha Miguel on 12-01-2024 Eosinophils/100 WBC (Bld) 4.9 % 0-5 [facility] Erythrocyte distribution wid th ratioOrdered By: Alysha Miguel on 12-01-2024 Erythrocyte distribution width (RBC) [Ratio] 12.8 % 11.6-14.6 [facility] Erythrocyte distribution wid th standard deviationOrdered By: Alysha Miguel on 12-01-2024 Erythrocyte distribution width (RBC) [Entitic vol] 44.6 fL High 35.1-43.9 [facility] Estimation of creatinine ping aranceOrdered By: Alysha Miguel on 12-01-2024 Estimated Creatinine Clearance Calc 64.53 ml/min 50-250 [facility] GFR/1.73 sq M.predicted germán g non-blacks MDRD (S/P/Bld) [Vol rate/Area]Ordered By: Alysha Miguel on 12-01-2024 Estimated GFR (MDRD) Non-Af Amer 87 >60 [facility] Comment on above: mL/min/1.73m2 CKD-EP I Creatinine Equation (2020) Hematocrit Auto (Bld) [Volum e fraction]Ordered By: Alysha Miguel on 12-01-2024 Hematocrit (Bld) [Volume fraction] 34.0 % Low 37-47 [facility] Hemoglobin measurementOrdere d By: Alysha Miguel on 12-01-2024 Hemoglobin (Bld) [Mass/Vol] 10.8 g/dL Low 12.0-15.0 [facility] Immature granulocytes/100 WB C Auto (Bld)Ordered By: Alysha Miguel on 12-01-2024 Immature granulocytes/100 WBC (Bld) 1.100 % High 0.0-0.9 [facility] Comment on above: IG% - Immature Granu locytes (promyelocytes, myelocytes and metamyelocytes) > 1% indicates that a LEFT SHIFT is Present. Lymphocytes Auto (Unsp spec) [#/Vol]Ordered By: Alysha Miguel on 12-01-2024 Lymphocytes (Bld) [#/Vol] 0.71 10*3/uL Low 0.83-4.51 [facility] Lymphocytes/100 WBC Auto (Un sp spec)Ordered By: Alysha Miguel on 12-01-2024 Lymphocytes/100 WBC (Bld) 15.1 % Low 19-41 [facility] MCV (mean corpuscular volume ) determinationOrdered By: Alysha Miguel on 12-01-2024 MCV (RBC) [Entitic vol] 95.2 fL 81-99 [facility] Mean corpuscular hemoglobin (MCH) determinationOrdered By: Alysha Miguel on 12-01-2024 MCH (RBC) [Entitic mass] 30.3 pg 27.0-32.0 [facility] Mean corpuscular hemoglobin concentration (MCHC) determinationOrdered By: Alysha Miguel on 12-01-2024 MCHC (RBC) [Mass/Vol] 31.8 g/dL Low 32-36 [facility] Mean platelet volume determi nationOrdered By: Alysha Miguel on 12-01-2024 Platelet mean volume (Bld) [Entitic vol] 10.5 fL 6.2-12.0 [facility] Monocyte percentageOrdered B y: Alysha Miguel on 12-01-2024 Monocytes/100 WBC (Bld) 10.6 % High 0-10 [facility] Neutrophil percentageOrdered By: Alysha Miguel on 12-01-2024 Neutrophils/100 WBC (Bld) 68.3 % 47-70 [facility] Nucleated red blood cell per centageOrdered By: Alysha Miguel on 12-01-2024 Nucleated RBC/100 WBC (Bld) [Ratio] 0 % 0-5 [facility] Platelet countOrdered By: Jose Miguel on 12-01-2024 Platelets (Bld) [#/Vol] 129 10*3/uL Low 150-450 [facility] Potassium (Unsp spec) [Mass/ Vol]Ordered By: Alysha Miguel on 12-01-2024 Potassium [Moles/Vol] 4.7 mmol/L 3.3-5.1 [facility] RBC Auto (Bld) [#/Vol]Ordere d By: Alysha Miguel on 12-01-2024 RBC (Bld) [#/Vol] 3.57 10*6/uL Low 4.2-5.4 [facility] Serum creatinine measurement (mass/volume)Ordered By: Alysha Miguel on 12-01-2024 Creatinine [Mass/Vol] 0.70 mg/dL 0.70-1.20 [facility] Serum glucose measurement (m ass/volume)Ordered By: Alysha Miguel on 12-01-2024 Glucose [Mass/Vol] 106 mg/dL High 70-99 [facility] Serum or plasma calcium cirilo urement (mass/volume)Ordered By: Alysha Miguel on 12-01-2024 Calcium [Mass/Vol] 9.2 mg/dL 7.6-11.0 [facility] Serum or plasma urea nitroge n measurement (mass/volume)Ordered By: Alysha Miguel on 12-01-2024 Urea nitrogen [Mass/Vol] 16 mg/dL 4-19 [facility] Sodium levelOrdered By: Kael Miguel on 12-01-2024 Sodium [Moles/Vol] 138 mmol/L 133-145 [facility] White blood cell (WBC) count Ordered By: Alysha Miguel on 12-01-2024 WBC (Bld) [#/Vol] 4.7 10*3/uL 4.4-11.0 [facility] Basic Metabolic Profile (BMP )on 11-30-2024 BUN/CRE 23.0 RATIO High 10-20 [facility] Comment on above: Performed By: #### L 100.0100, L501.5200, L500.2500 #### [facility] [address] [place], [address] Calcium [Mass/Vol] 8.8 mg/dL Normal 7.6-11.0 [facility] Comment on above: Performed By: #### L 100.0100, L501.5200, L500.2500 #### [facility] [address] [place], [address] Chloride [Moles/Vol] 104 mmol/L Normal 98-108 [facility] Comment on above: Performed By: #### L 100.0100, L501.5200, L500.2500 #### [facility] [address] [place], [address] CO2 [Moles/Vol] 21.9 mmol/L Normal 21.0-32.0 [facility] Comment on above: Performed By: #### L 100.0100, L501.5200, L500.2500 #### [facility] [address] [place], [address] Creatinine [Mass/Vol] 0.77 mg/dL Normal 0.70-1.20 [facility] Comment on above: Performed By: #### L 100.0100, L501.5200, L500.2500 #### [facility] [address] [place], [address] ECRCL 64.53 ml/min Normal 50-250 [facility] Comment on above: Performed By: #### L 100.0100, L501.5200, L500.2500 #### [facility] [address] [place], [address] GAP 11 Normal 5-15 [facility] Comment on above: Performed By: #### L 100.0100, L501.5200, L500.2500 #### [facility] [address] [place], [address] GFR/1.73 sq M.predicted among non-blacks MDRD (S/P/Bld) [Vol rate/Area] 77 mL/min/{1.73_m2} Normal >60 [facility] Comment on above: Result Comment: mL/m in/1.73m2 CKD-EPI Creatinine Equation (2020) Performed By: #### L 100.0100, L501.5200, L500.2500 #### [facility] [address] [place], [address] Glucose [Mass/Vol] 114 mg/dL High 70-99 [facility] Comment on above: Performed By: #### L 100.0100, L501.5200, L500.2500 #### [facility] [address] [place], [address] Potassium [Moles/Vol] 4.2 mmol/L Normal 3.3-5.1 [facility] Comment on above: Performed By: #### L 100.0100, L501.5200, L500.2500 #### [facility] [address] [place], [address] Sodium [Moles/Vol] 136 mmol/L Normal 133-145 [facility] Comment on above: Performed By: #### L 100.0100, L501.5200, L500.2500 #### [facility] [address] [place], [address] Urea nitrogen [Mass/Vol] 18 mg/dL Normal 4-19 [facility] Comment on above: Performed By: #### L 100.0100, L501.5200, L500.2500 #### [facility] [address] [place], [address] CBC W/Diff, Automatedon 11-20 Absolute Lymph 0.88 X10 3/uL Normal 0.83-4.51 [facility] Comment on above: Performed By: #### L 100.0100, L501.5200, L500.2500 #### [facility] [address] [place], [address] Absolute Neut 3.2 X10 3/uL Normal 2.0-7.7 [facility] Comment on above: Performed By: #### L 100.0100, L501.5200, L500.2500 #### [facility] [address] [place], [address] Basophils/100 WBC (Bld) 0.2 % Normal 0-1 [facility] Comment on above: Performed By: #### L 100.0100, L501.5200, L500.2500 #### [facility] [address] [place], [address] Eosinophils/100 WBC (Bld) 3.5 % Normal 0-5 [facility] Comment on above: Performed By: #### L 100.0100, L501.5200, L500.2500 #### [facility] [address] [place], [address] Erythrocyte distribution width (RBC) [Ratio] 12.9 % Normal 11.6-14.6 [facility] Comment on above: Performed By: #### L 100.0100, L501.5200, L500.2500 #### [facility] [address] [place], [address] Hematocrit (Bld) [Volume fraction] 32.4 % Low 37-47 [facility] Comment on above: Performed By: #### L 100.0100, L501.5200, L500.2500 #### [facility] [address] [place], [address] Hemoglobin (Bld) [Mass/Vol] 10.4 g/dL Low 12.0-15.0 [facility] Comment on above: Performed By: #### L 100.0100, L501.5200, L500.2500 #### [facility] [address] [place], [address] IG% 0.800 Normal 0.0-0.9 [facility] Comment on above: Result Comment: IG% - Immature Granulocytes (promyelocytes, myelocytes and metamyelocytes) > 1% indicates that a LEFT SHIFT is Present. Performed By: #### L 100.0100, L501.5200, L500.2500 #### [facility] [address] [place], [address] Lymphocytes/100 WBC (Bld) 18.2 % Low 19-41 [facility] Comment on above: Performed By: #### L 100.0100, L501.5200, L500.2500 #### [facility] [address] [place], [address] MCH (RBC) [Entitic mass] 30.6 pg Normal 27.0-32.0 [facility] Comment on above: Performed By: #### L 100.0100, L501.5200, L500.2500 #### [facility] [address] [place], [address] MCHC (RBC) [Mass/Vol] 32.1 g/dL Normal 32-36 [facility] Comment on above: Performed By: #### L 100.0100, L501.5200, L500.2500 #### [facility] [address] [place], [address] MCV (RBC) [Entitic vol] 95.3 fL Normal 81-99 [facility] Comment on above: Performed By: #### L 100.0100, L501.5200, L500.2500 #### [facility] [address] [place], [address] Monocytes/100 WBC (Bld) 10.3 % High 0-10 [facility] Comment on above: Performed By: #### L 100.0100, L501.5200, L500.2500 #### [facility] [address] [place], [address] Neutrophils/100 WBC (Bld) 67.0 % Normal 47-70 [facility] Comment on above: Performed By: #### L 100.0100, L501.5200, L500.2500 #### [facility] [address] [place], [address] Nucleated RBC (Bld) [#/Vol] 0 10*3/uL Normal 0-5 [facility] Comment on above: Performed By: #### L 100.0100, L501.5200, L500.2500 #### [facility] [address] [place], [address] Platelet mean volume (Bld) [Entitic vol] 10.3 fL Normal 6.2-12.0 [facility] Comment on above: Performed By: #### L 100.0100, L501.5200, L500.2500 #### [facility] [address] [place], [address] Platelets (Bld) [#/Vol] 126 10*3/uL Low 150-450 [facility] Comment on above: Performed By: #### L 100.0100, L501.5200, L500.2500 #### [facility] [address] [place], [address] RBC (Bld) [#/Vol] 3.40 10*6/uL Low 4.2-5.4 [facility] Comment on above: Performed By: #### L 100.0100, L501.5200, L500.2500 #### [facility] [address] [place], [address] RDW SD 44.5 fl High 35.1-43.9 [facility] Comment on above: Performed By: #### L 100.0100, L501.5200, L500.2500 #### [facility] [address] [place], [address] WBC (Bld) [#/Vol] 4.8 10*3/uL Normal 4.4-11.0 [facility] Comment on above: Performed By: #### L 100.0100, L501.5200, L500.2500 #### [facility] [address] [place], [address] Urine Cultureon 11-30-2024 URC Mixed Gram Pos Gram Neg Org [place] Count 80,000-100,000 MIXC Mixed contaminants. Submit a new specimen if indicated. Normal [facility] Comment on above: Performed By: #### M 100.2200, L400.0001 ####[facility] [address] [place], [address] Basic Metabolic Profile (BMP )on 11-29-2024 BUN/CRE 25.7 RATIO High 10-20 [facility] Comment on above: Performed By: #### L 100.0100, L501.2300, L500.2500 ####[facility] [address] [place], [address] Calcium [Mass/Vol] 8.7 mg/dL Normal 7.6-11.0 [facility] Comment on above: Performed By: #### L 100.0100, L501.2300, L500.2500 ####[facility] [address] [place], [address] Chloride [Moles/Vol] 105 mmol/L Normal 98-108 [facility] Comment on above: Performed By: #### L 100.0100, L501.2300, L500.2500 ####[facility] [address] [place], [address] CO2 [Moles/Vol] 22.4 mmol/L Normal 21.0-32.0 [facility] Comment on above: Performed By: #### L 100.0100, L501.2300, L500.2500 ####[facility] [address] [place], [address] Creatinine [Mass/Vol] 0.84 mg/dL Normal 0.70-1.20 [facility] Comment on above: Performed By: #### L 100.0100, L501.2300, L500.2500 ####[facility] [address] [place], [address] ECRCL 61.46 ml/min Normal 50-250 [facility] Comment on above: Performed By: #### L 100.0100, L501.2300, L500.2500 ####[facility] [address] [place], [address] GAP 10 Normal 5-15 [facility] Comment on above: Performed By: #### L 100.0100, L501.2300, L500.2500 ####[facility] [address] [place], [address] GFR/1.73 sq M.predicted among non-blacks MDRD (S/P/Bld) [Vol rate/Area] 70 mL/min/{1.73_m2} Normal >60 [facility] Comment on above: Result Comment: mL/m in/1.73m2 CKD-EPI Creatinine Equation (2020) Performed By: #### L 100.0100, L501.2300, L500.2500 ####[facility] [address] [place], [address] Glucose [Mass/Vol] 117 mg/dL High 70-99 [facility] Comment on above: Performed By: #### L 100.0100, L501.2300, L500.2500 ####[facility] [address] [place], [address] Potassium [Moles/Vol] 4.2 mmol/L Normal 3.3-5.1 [facility] Comment on above: Performed By: #### L 100.0100, L501.2300, L500.2500 ####[facility] [address] [place], [address] Sodium [Moles/Vol] 137 mmol/L Normal 133-145 [facility] Comment on above: Performed By: #### L 100.0100, L501.2300, L500.2500 ####[facility] [address] [place], [address] Urea nitrogen [Mass/Vol] 22 mg/dL High 4-19 [facility] Comment on above: Performed By: #### L 100.0100, L501.2300, L500.2500 ####[facility] [address] [place], [address] Bilirubin Test strip Ql (U)O rdered By: Alysha Miguel on 11-29-2024 Bilirubin Ql (U) Negative Negative [facility] CBC W/Diff, Automatedon 11-20 Absolute Lymph 0.87 X10 3/uL Normal 0.83-4.51 [facility] Comment on above: Performed By: #### L 100.0100, L501.2300, L500.2500 ####[facility] [address] [place], [address] Absolute Neut 2.7 X10 3/uL Normal 2.0-7.7 [facility] Comment on above: Performed By: #### L 100.0100, L501.2300, L500.2500 ####[facility] [address] [place], [address] Basophils/100 WBC (Bld) 0.2 % Normal 0-1 [facility] Comment on above: Performed By: #### L 100.0100, L501.2300, L500.2500 ####[facility] [address] [place], [address] Eosinophils/100 WBC (Bld) 3.0 % Normal 0-5 [facility] Comment on above: Performed By: #### L 100.0100, L501.2300, L500.2500 ####[facility] [address] [place], [address] Erythrocyte distribution width (RBC) [Ratio] 13.0 % Normal 11.6-14.6 [facility] Comment on above: Performed By: #### L 100.0100, L501.2300, L500.2500 ####[facility] [address] [place], [address] Hematocrit (Bld) [Volume fraction] 31.7 % Low 37-47 [facility] Comment on above: Performed By: #### L 100.0100, L501.2300, L500.2500 ####[facility] [address] [place], [address] Hemoglobin (Bld) [Mass/Vol] 10.0 g/dL Low 12.0-15.0 [facility] Comment on above: Performed By: #### L 100.0100, L501.2300, L500.2500 ####[facility] [address] [place], [address] IG% 1.200 High 0.0-0.9 [facility] Comment on above: Result Comment: IG% - Immature Granulocytes (promyelocytes, myelocytes and metamyelocytes) > 1% indicates that a LEFT SHIFT is Present. Performed By: #### L 100.0100, L501.2300, L500.2500 ####[facility] [address] [place], [address] Lymphocytes/100 WBC (Bld) 20.1 % Normal 19-41 [facility] Comment on above: Performed By: #### L 100.0100, L501.2300, L500.2500 ####[facility] [address] [place], [address] MCH (RBC) [Entitic mass] 30.4 pg Normal 27.0-32.0 [facility] Comment on above: Performed By: #### L 100.0100, L501.2300, L500.2500 ####[facility] [address] [place], [address] MCHC (RBC) [Mass/Vol] 31.5 g/dL Low 32-36 [facility] Comment on above: Performed By: #### L 100.0100, L501.2300, L500.2500 ####[facility] [address] [place], [address] MCV (RBC) [Entitic vol] 96.4 fL Normal 81-99 [facility] Comment on above: Performed By: #### L 100.0100, L501.2300, L500.2500 ####[facility] [address] [place], [address] Monocytes/100 WBC (Bld) 12.7 % High 0-10 [facility] Comment on above: Performed By: #### L 100.0100, L501.2300, L500.2500 ####[facility] [address] [place], [address] Neutrophils/100 WBC (Bld) 62.8 % Normal 47-70 [facility] Comment on above: Performed By: #### L 100.0100, L501.2300, L500.2500 ####[facility] [address] [place], [address] Nucleated RBC (Bld) [#/Vol] 0 10*3/uL Normal 0-5 [facility] Comment on above: Performed By: #### L 100.0100, L501.2300, L500.2500 ####[facility] [address] [place], [address] Platelet mean volume (Bld) [Entitic vol] 10.3 fL Normal 6.2-12.0 [facility] Comment on above: Performed By: #### L 100.0100, L501.2300, L500.2500 ####[facility] [address] [place], [address] Platelets (Bld) [#/Vol] 117 10*3/uL Low 150-450 [facility] Comment on above: Performed By: #### L 100.0100, L501.2300, L500.2500 ####[facility] [address] [place], [address] RBC (Bld) [#/Vol] 3.29 10*6/uL Low 4.2-5.4 [facility] Comment on above: Performed By: #### L 100.0100, L501.2300, L500.2500 ####[facility] [address] [place], [address] RDW SD 46.3 fl High 35.1-43.9 [facility] Comment on above: Performed By: #### L 100.0100, L501.2300, L500.2500 ####[facility] [address] [place], [address] WBC (Bld) [#/Vol] 4.3 10*3/uL Low 4.4-11.0 [facility] Comment on above: Performed By: #### L 100.0100, L501.2300, L500.2500 ####[facility] [address] [place], [address] Chest 1 View (Portable)on Chest 1 View (Portable) [facility] Imaging Services [address] [place] [address] Chest 1 View (Portable) MR#: [id number] Acct: [id number] Name: LISA UP Rep #: [id number] : 1945 F 79 From: Wilner Li MD PCP: Dr. Sylvia Lizama MD Status: ADM IN Study: Chest 1 View (Portable) Date of Exam: 11/29/24 Exam# [id number] Ordering Dr: Alysha Miguel MD EXAM: XR Chest, 1 View CLINICAL INDICATION: TECHNIQUE: Frontal view of the chest. COMPARISON: No relevant prior studies available. FINDINGS: LUNGS AND PLEURAL SPACES: Unremarkable. No consolidation. No pneumothorax. HEART: Unremarkable. No cardiomegaly. MEDIASTINUM: Unremarkable. Normal mediastinal contour. BONES/JOINTS: Unremarkable. No acute fracture. RAD/Chest 1 View (Portable) IMPRESSION: No acute cardiopulmonary process. Reading Location: [facility] CC: Dr. Alysha Miguel MD; Dr. Sylvia Lizama MD Software Engineer Backend: Signed Normal [facility] Epithelial cells.squamous LM Ql (Urine sed)Ordered By: Alysha Miguel on 11-29-2024 Epithelial cells.squamous LM.HPF (Urine sed) [#/Area] 10 /[HPF] 5-10 [facility] Glucose Ql (U)Ordered By: Jose Miguel on 11-29-2024 Urine Glucose (UA) Normal mg/dl Normal [facility] Ketones Test strip Ql (U)Ord ered By: Alysha Miguel on 11-29-2024 Ketones Ql (U) Negative Negative [facility] Microscopic analysis of urin e for red blood cells (RBC)Ordered By: Alysha Migule on 11-29-2024 Urine RBC 0-5 SEEN /hpf 0-5 [facility] Mucus LM Ql (Urine sed)Order ed By: Alysha Miguel on 11-29-2024 Mucus Ql (Urine sed) 0 SEEN /hpf [facility] Nitrite Test strip Ql (U)Ord ered By: Alysha Miguel on 11-29-2024 Nitrite Ql (U) Positive High Negative [facility] Phosphoruson 11-29-2024 Phosphate [Mass/Vol] 3.8 mg/dL Normal 2.7-4.5 [facility] Comment on above: Performed By: #### L 100.0100, L501.2300, L500.2500 ####[facility] [address] [place], [address] Protein Test strip Ql (U)Ord ered By: Alysha Miguel on 11-29-2024 Protein Ql (U) 15 mg/dl High Negative [facility] RESPIRATORY PANEL MOLECULARo n 11-29-2024 RP PANEL ADENOVIRUS Not Detected INFLUENZA A Not Detected INFLUENZA A (SUBTYPE H1) Not Detected INFLUENZA A (SUBTYPE H3) Not Detected INFLUENZA B Not Detected HUMAN METAPHNEUMO Not Detected PARAINFLUENZA 1 Not Detected PARAINFLUENZA 2 Not Detected PARAINFLUENZA 3 Not Detected PARAINFLUENZA 4 Not Detected RHINOVIRUS Not Detected RSV A Not Detected RSV B Not Detected Normal [facility] Comment on above: Performed By: #### L 100.0100, L501.4020, L500.2500 #### [facility] [address] [place], [address] Respiratory pathogens DNA an d RNA panel ANALI+probe (Resp)Ordered By: Alysha Miguel on 11-29-2024 Respiratory Panel (PCR) [facility] Serum phosphorus measurement Ordered By: Alysha Miguel on 11-29-2024 Phosphorus Level 3.8 mg/dL 2.7-4.5 [facility] Transitional cells LM Ql (Ur ine sed)Ordered By: Alysha Miguel on 11-29-2024 Urine Transitional Epithelial Cells 0 SEEN /hpf 0-5 [facility] Urinalysis, Completeon 11-29 EPI,TRANSITION 0 SEEN Normal 0-5 [facility] Comment on above: Order Comment: CLEAN CATCH Performed By: #### M 100.2200, L400.0001 ####[facility] [address] [place], [address] RBC 0-5 SEEN Normal 0-5 [facility] Comment on above: Order Comment: CLEAN CATCH Performed By: #### M 100.2200, L400.0001 ####[facility] [address] [place], [address] BACTERIA 3+ /hpf Normal None Seen [facility] Comment on above: Order Comment: CLEAN CATCH Performed By: #### M 100.2200, L400.0001 ####[facility] [address] [place], [address] WBC 5-10 SEEN Normal 0-5 [facility] Comment on above: Order Comment: CLEAN CATCH Performed By: #### M 100.2200, L400.0001 ####[facility] [address] [place], [address] EPI,SQUAMOUS 10-25 SEEN Normal 5-10 [facility] Comment on above: Order Comment: CLEAN CATCH Performed By: #### M 100.2200, L400.0001 ####[facility] [address] [place], [address] Mucus Ql (Urine sed) 0 SEEN Normal [facility] Comment on above: Order Comment: CLEAN CATCH Performed By: #### M 100.2200, L400.0001 ####[facility] [address] [place], [address] Urine blood detectionOrdered By: Alysha Miguel on 11-29-2024 Urine Occult Blood Negative Negative [facility] Urine clarityOrdered By: Riki Miguel on 11-29-2024 Clarity (U) Clear Clear [facility] Urine color determinationOrd ered By: Alysha Miguel on 11-29-2024 Color (U) Yellow Yellow [facility] Urine cultureOrdered By: Riki Miguel on 11-29-2024 Bacteria identified Cx Nom (U) Mixed Gram Pos & Gram Neg Org Abnormal [facility] Urine leukocyte esterase det ection by dipstickOrdered By: Alysha Miguel on 11-29-2024 Leukocyte esterase Test strip Ql (U) 500 /ul High Negative [facility] Urine pHOrdered By: Alysha connolly on 11-29-2024 pH (U) 5.0 [pH] 5.0 - 8.0 [facility] Urine sediment bacteria coun t by microscopy (number/high power field)Ordered By: Alysha Miguel on 11-29-2024 Bacteria LM.HPF (Urine sed) [#/Area] 3 /[HPF] None Seen [facility] Urine specific gravity measu rementOrdered By: Alysha Miguel on 11-29-2024 Specific gravity (U) [Rel density] 1.020 1.002-1.030 [facility] Urobilinogen Ql (U)Ordered B y: Alysha Miguel on 11-29-2024 Urine Urobilinogen Normal mg/dl Normal [facility] White blood cell countOrdere d By: Alysha Miguel on 11-29-2024 Urine WBC 5-10 SEEN /hpf 0-5 [facility] Bilirubin, totalOrdered By: Alysha Miguel on 11-28-2024 Bilirubin [Mass/Vol] 0.28 mg/dL Normal 0.00-1.30 [facility] Comment on above: Performed By: #### L 100.0100, L501.4020, L500.2500 #### [facility] [address] [place], [address] CBC-Complete Blood Cnt No Di ffon 11-28-2024 Erythrocyte distribution width (RBC) [Ratio] 12.9 % Normal 11.6-14.6 [facility] Comment on above: Performed By: #### L 100.0100, L501.4020, L500.2500 #### [facility] [address] [place], [address] Hematocrit (Bld) [Volume fraction] 35.1 % Low 37-47 [facility] Comment on above: Performed By: #### L 100.0100, L501.4020, L500.2500 #### [facility] [address] [place], [address] Hemoglobin (Bld) [Mass/Vol] 11.1 g/dL Low 12.0-15.0 [facility] Comment on above: Performed By: #### L 100.0100, L501.4020, L500.2500 #### [facility] [address] [place], [address] MCH (RBC) [Entitic mass] 30.7 pg Normal 27.0-32.0 [facility] Comment on above: Performed By: #### L 100.0100, L501.4020, L500.2500 #### [facility] [address] [place], [address] MCHC (RBC) [Mass/Vol] 31.6 g/dL Low 32-36 [facility] Comment on above: Performed By: #### L 100.0100, L501.4020, L500.2500 #### [facility] [address] [place], [address] MCV (RBC) [Entitic vol] 97.0 fL Normal 81-99 [facility] Comment on above: Performed By: #### L 100.0100, L501.4020, L500.2500 #### [facility] [address] [place], [address] Platelet mean volume (Bld) [Entitic vol] 10.4 fL Normal 6.2-12.0 [facility] Comment on above: Performed By: #### L 100.0100, L501.4020, L500.2500 #### [facility] [address] [place], [address] Platelets (Bld) [#/Vol] 130 10*3/uL Low 150-450 [facility] Comment on above: Performed By: #### L 100.0100, L501.4020, L500.2500 #### [facility] [address] [place], [address] RBC (Bld) [#/Vol] 3.62 10*6/uL Low 4.2-5.4 [facility] Comment on above: Performed By: #### L 100.0100, L501.4020, L500.2500 #### [facility] [address] [place], [address] RDW SD 45.7 fl High 35.1-43.9 [facility] Comment on above: Performed By: #### L 100.0100, L501.4020, L500.2500 #### [facility] [address] [place], [address] WBC (Bld) [#/Vol] 4.5 10*3/uL Normal 4.4-11.0 [facility] Comment on above: Performed By: #### L 100.0100, L501.4020, L500.2500 #### [facility] [address] [place], [address] Comprehensive Metabolic Prof ilon 11-28-2024 ALK PHOS 56 U/L Normal 35-104 [facility] Comment on above: Performed By: #### L 100.0100, L501.4020, L500.2500 #### [facility] [address] [place], [address] BUN/CRE 19.4 RATIO Normal 10-20 [facility] Comment on above: Performed By: #### L 100.0100, L501.4020, L500.2500 #### [facility] [address] [place], [address] Calcium [Mass/Vol] 8.9 mg/dL Normal 7.6-11.0 [facility] Comment on above: Performed By: #### L 100.0100, L501.4020, L500.2500 #### [facility] [address] [place], [address] Chloride [Moles/Vol] 103 mmol/L Normal 98-108 [facility] Comment on above: Performed By: #### L 100.0100, L501.4020, L500.2500 #### [facility] [address] [place], [address] CO2 [Moles/Vol] 24.1 mmol/L Normal 21.0-32.0 [facility] Comment on above: Performed By: #### L 100.0100, L501.4020, L500.2500 #### [facility] [address] [place], [address] Creatinine [Mass/Vol] 0.99 mg/dL Normal 0.70-1.20 [facility] Comment on above: Performed By: #### L 100.0100, L501.4020, L500.2500 #### [facility] [address] [place], [address] ECRCL 52.15 ml/min Normal 50-250 [facility] Comment on above: Performed By: #### L 100.0100, L501.4020, L500.2500 #### [facility] [address] [place], [address] GAP 11 Normal 5-15 [facility] Comment on above: Performed By: #### L 100.0100, L501.4020, L500.2500 #### [facility] [address] [place], [address] GFR/1.73 sq M.predicted among non-blacks MDRD (S/P/Bld) [Vol rate/Area] 58 mL/min/{1.73_m2} Low >60 [facility] Comment on above: Result Comment: mL/m in/1.73m2 CKD-EPI Creatinine Equation (2020) Performed By: #### L 100.0100, L501.4020, L500.2500 #### [facility] [address] [place], [address] Glucose [Mass/Vol] 113 mg/dL High 70-99 [facility] Comment on above: Performed By: #### L 100.0100, L501.4020, L500.2500 #### [facility] [address] [place], [address] Potassium [Moles/Vol] 4.2 mmol/L Normal 3.3-5.1 [facility] Comment on above: Result Comment: Hemo lysis present, Results??could be affected. ?? Performed By: #### L 100.0100, L501.4020, L500.2500 #### [facility] [address] [place], [address] Sodium [Moles/Vol] 138 mmol/L Normal 133-145 [facility] Comment on above: Performed By: #### L 100.0100, L501.4020, L500.2500 #### [facility] [address] [place], [address] T PROT 5.7 g/dL Low 5.9-8.4 [facility] Comment on above: Performed By: #### L 100.0100, L501.4020, L500.2500 #### [facility] [address] [place], [address] Urea nitrogen [Mass/Vol] 19 mg/dL Normal 4-19 [facility] Comment on above: Performed By: #### L 100.0100, L501.4020, L500.2500 #### [facility] [address] [place], [address] Comprehensive Metabolic Prof ilOrdered By: Alysha Miguel on 11-28-2024 AST [Catalytic activity/Vol] 28 U/L Normal <=31 [facility] Comment on above: Performed By: #### L 100.0100, L501.4020, L500.2500 #### [facility] [address] [place], [address] Magnesium measurement (mass/ volume)Ordered By: Alysha Miguel on 11-28-2024 Magnesium [Mass/Vol] 2.0 mg/dL Normal 1.5-2.2 [facility] Comment on above: Performed By: #### L 100.0100, L501.4020, L500.2500 #### [facility] [address] [place], [address] Serum globulin measurementOr dered By: Alysha Miguel on 11-28-2024 Globulin (S) [Mass/Vol] 2.5 g/dL Normal 2.2-4.2 [facility] Comment on above: Performed By: #### L 100.0100, L501.4020, L500.2500 #### [facility] [address] [place], [address] Serum or plasma alanine rice otransferase (ALT) measurementOrdered By: Alysha Miguel on 11-28-2024 ALT [Catalytic activity/Vol] 5 U/L Normal <=34 [facility] Comment on above: Performed By: #### L 100.0100, L501.4020, L500.2500 #### [facility] [address] [place], [address] Serum or plasma albumin cirilo urement (mass/volume)Ordered By: Alysha Miguel on 11-28-2024 Albumin [Mass/Vol] 3.3 g/dL Low 3.4-4.8 [facility] Comment on above: Performed By: #### L 100.0100, L501.4020, L500.2500 #### [facility] [address] [place], [address] Serum or plasma albumin/glob ulin mass ratioOrdered By: Alysha Miguel on 11-28-2024 Albumin/Globulin [Mass ratio] 1.3 {ratio} Normal 0.9-2.4 [facility] Comment on above: Performed By: #### L 100.0100, L501.4020, L500.2500 #### [facility] [address] [place], [address] Serum or plasma alkaline anitha sphatase measurementOrdered By: Alysha Miguel on 11-28-2024 ALP [Catalytic activity/Vol] 56 U/L 35-104 [facility] Total proteinOrdered By: Riki Miguel on 11-28-2024 Protein [Mass/Vol] 5.7 g/dL Low 5.9-8.4 [facility] Basic Metabolic Profile (BMP )on 11-27-2024 BUN/CRE 16.7 RATIO Normal 10-20 [facility] Comment on above: Performed By: #### L 100.0100, L501.4020, L500.2500 #### [facility] [address] [place], [address] Calcium [Mass/Vol] 8.6 mg/dL Normal 7.6-11.0 [facility] Comment on above: Performed By: #### L 100.0100, L501.4020, L500.2500 #### [facility] [address] [place], [address] Chloride [Moles/Vol] 104 mmol/L Normal 98-108 [facility] Comment on above: Performed By: #### L 100.0100, L501.4020, L500.2500 #### [facility] [address] [place], [address] CO2 [Moles/Vol] 24.1 mmol/L Normal 21.0-32.0 [facility] Comment on above: Performed By: #### L 100.0100, L501.4020, L500.2500 #### [facility] [address] [place], [address] Creatinine [Mass/Vol] 0.80 mg/dL Normal 0.70-1.20 [facility] Comment on above: Performed By: #### L 100.0100, L501.4020, L500.2500 #### [facility] [address] [place], [address] ECRCL 64.53 ml/min Normal 50-250 [facility] Comment on above: Performed By: #### L 100.0100, L501.4020, L500.2500 #### [facility] [address] [place], [address] GAP 11 Normal 5-15 [facility] Comment on above: Performed By: #### L 100.0100, L501.4020, L500.2500 #### [facility] [address] [place], [address] GFR/1.73 sq M.predicted among non-blacks MDRD (S/P/Bld) [Vol rate/Area] 75 mL/min/{1.73_m2} Normal >60 [facility] Comment on above: Result Comment: mL/m in/1.73m2 CKD-EPI Creatinine Equation (2020) Performed By: #### L 100.0100, L501.4020, L500.2500 #### [facility] [address] [place], [address] Glucose [Mass/Vol] 101 mg/dL High 70-99 [facility] Comment on above: Performed By: #### L 100.0100, L501.4020, L500.2500 #### [facility] [address] [place], [address] Potassium [Moles/Vol] 4.0 mmol/L Normal 3.3-5.1 [facility] Comment on above: Performed By: #### L 100.0100, L501.4020, L500.2500 #### [facility] [address] [place], [address] Sodium [Moles/Vol] 139 mmol/L Normal 133-145 [facility] Comment on above: Performed By: #### L 100.0100, L501.4020, L500.2500 #### [facility] [address] [place], [address] Urea nitrogen [Mass/Vol] 13 mg/dL Normal 4-19 [facility] Comment on above: Performed By: #### L 100.0100, L501.4020, L500.2500 #### [facility] [address] [place], [address] CBC-Complete Blood Cnt No Di ffon 11-27-2024 Erythrocyte distribution width (RBC) [Ratio] 12.9 % Normal 11.6-14.6 [facility] Comment on above: Performed By: #### L 100.0100, L501.4020, L500.2500 #### [facility] [address] [place], [address] Hematocrit (Bld) [Volume fraction] 33.8 % Low 37-47 [facility] Comment on above: Performed By: #### L 100.0100, L501.4020, L500.2500 #### [facility] [address] [place], [address] Hemoglobin (Bld) [Mass/Vol] 11.0 g/dL Low 12.0-15.0 [facility] Comment on above: Performed By: #### L 100.0100, L501.4020, L500.2500 #### [facility] [address] [place], [address] MCH (RBC) [Entitic mass] 30.8 pg Normal 27.0-32.0 [facility] Comment on above: Performed By: #### L 100.0100, L501.4020, L500.2500 #### [facility] [address] [place], [address] MCHC (RBC) [Mass/Vol] 32.5 g/dL Normal 32-36 [facility] Comment on above: Performed By: #### L 100.0100, L501.4020, L500.2500 #### [facility] [address] [place], [address] MCV (RBC) [Entitic vol] 94.7 fL Normal 81-99 [facility] Comment on above: Performed By: #### L 100.0100, L501.4020, L500.2500 #### [facility] [address] [place], [address] Platelet mean volume (Bld) [Entitic vol] 9.9 fL Normal 6.2-12.0 [facility] Comment on above: Performed By: #### L 100.0100, L501.4020, L500.2500 #### [facility] [address] [place], [address] Platelets (Bld) [#/Vol] 123 10*3/uL Low 150-450 [facility] Comment on above: Performed By: #### L 100.0100, L501.4020, L500.2500 #### [facility] [address] [place], [address] RBC (Bld) [#/Vol] 3.57 10*6/uL Low 4.2-5.4 [facility] Comment on above: Performed By: #### L 100.0100, L501.4020, L500.2500 #### [facility] [address] [place], [address] RDW SD 44.3 fl High 35.1-43.9 [facility] Comment on above: Performed By: #### L 100.0100, L501.4020, L500.2500 #### [facility] [address] [place], [address] WBC (Bld) [#/Vol] 4.1 10*3/uL Low 4.4-11.0 [facility] Comment on above: Performed By: #### L 100.0100, L501.4020, L500.2500 #### [facility] [address] [place], [address] Absolute neutrophil countOrd ered By: Tanisha Bahena on 11-26-2024 Neutrophils (Bld) [#/Vol] 3.6 10*3/uL 2.0-7.7 [facility] Anion gap in Serum or Plasma Ordered By: Tanisha Bahena on 11-26-2024 Anion gap [Moles/Vol] 11 mmol/L 5-15 [facility] BUN/creatinine ratioOrdered By: Tanisha Bahena on 11-26-2024 Urea nitrogen/Creatinine [Mass ratio] 15.1 mg/mg 10-20 [facility] Basophil percentageOrdered B y: Tanisha Bahena on 11-26-2024 Basophils/100 WBC (Bld) 0.2 % 0-1 [facility] Bilirubin Test strip Ql (U)O rdered By: Tanisha Bahena on 11-26-2024 Bilirubin Ql (U) Negative Negative [facility] Bilirubin, totalOrdered By: Tanisha Bahena on 11-26-2024 Bilirubin [Mass/Vol] 0.49 mg/dL 0.00-1.30 [facility] Blood cultureOrdered By: Danica lateshaangelica Bahena on 11-26-2024 Bacteria identified Cx Nom (Bld) No growth in 5 days. [facility] Brain without Contraston Brain without Contrast [facility] Imaging Services [address] [place] [address] Brain without Contrast MR#: [id number] Acct: [id number] Name: LISA UP Rep #: [id number] : 1945 F 79 From: Yoni Reynolds PCP: Dr. Sylvia Lizama MD Status: ADM DEBORAH Study: Brain without Contrast Date of Exam: 11/26/24 Exam# [id number] Ordering Dr: Jaxson Meehan DO PROCEDURE: CT brain without IV contrast REASON FOR EXAM: Neurologic deficit, evaluate for CVA TECHNIQUE: Multisequence multiplanar MR images of the brain were obtained without the administration of intravenous contrast. COMPARISON: Same day CT FINDINGS: No diffusion restriction to suggest acute/subacute ischemia. Moderate generalized cerebral atrophy and chronic small-vessel ischemic changes. No suspicious cortical edema. No hydrocephalus. No evidence of chronic microhemorrhage. Globes are intact. Rather extensive mucosal thickening throughout the ethmoid sinuses. Mild left sphenoid, bilateral maxillary and frontal sinus mucosal thickening. MRI/Brain without Contrast IMPRESSION: 1. No acute intracranial abnormality. 2. Atrophy and chronic small-vessel ischemic disease. 3. Moderate scattered paranasal sinus disease. Reading Location: [id number] CC: Dr. Jaxson Meehan DO; Dr. Sylvia Lizama MD Software Engineer Backend: Signed Normal [facility] Brain/Head without Contrasto n 11-26-2024 Brain/Head without Contrast [facility] Imaging Services [address] [place], [place] [address] Brain/Head without Contrast MR#: [id number] Acct: [id number] Name: LISA UP Rep #: [id number] : 1945 F 79 From: Osman aden MD PCP: Dr. Sylvia Lizama MD Status: REG ER Study: Brain/Head without Contrast Date of Exam: 04/15 Exam# [id number] Ordering Dr: Tanisha Bahena DO EXAM: BRAIN/HEAD WITHOUT CONTRAST CLINICAL HISTORY: Weakness. History of fall. The patient is on anticoagulants. COMPARISON: Comparison is made with prior study dated July 04, 2024. TECHNIQUE: Multiple axial tomographic images were obtained without intravenous contrast administration. Coronal and sagittal reconstruction was obtained as well. FINDINGS: Cerebral atrophy. There is a 9.2 mm hypodensity in the superior left cerebellar peduncle. Correlation with MRI recommended. Decreased periventricular hypodensities suggestive of chronic small-vessel disease. There is opacification of the ethmoid sinuses bilaterally as well as the left sphenoid sinus. CT/Brain/Head without Contrast IMPRESSION: Cerebral atrophy. There is a 9.2 mm hypodensity in the left superior left cerebellar peduncle. Correlation with MRI recommended. Opacification of the ethmoid sinuses bilaterally as well as the left sphenoid sinus. Reading Location: [facility] CC: Dr. Tanisha Bahena DO; Dr. Sylvia Lizama MD Software Engineer Backend: Signed Normal [facility] CBC W/Diff, Automatedon Absolute Lymph 0.76 X10 3/uL Low 0.83-4.51 [facility] Comment on above: Performed By: #### L 100.0100, L501.5200, L500.2500 #### [facility] [address] [place], [address] Absolute Neut 3.6 X10 3/uL Normal 2.0-7.7 [facility] Comment on above: Performed By: #### L 100.0100, L501.5200, L500.2500 #### [facility] [address] [place], [address] Basophils/100 WBC (Bld) 0.2 % Normal 0-1 [facility] Comment on above: Performed By: #### L 100.0100, L501.5200, L500.2500 #### [facility] [address] [place], [address] Eosinophils/100 WBC (Bld) 1.2 % Normal 0-5 [facility] Comment on above: Performed By: #### L 100.0100, L501.5200, L500.2500 #### [facility] [address] [place], [address] Erythrocyte distribution width (RBC) [Ratio] 12.8 % Normal 11.6-14.6 [facility] Comment on above: Performed By: #### L 100.0100, L501.5200, L500.2500 #### [facility] [address] [place], [address] Hematocrit (Bld) [Volume fraction] 36.2 % Low 37-47 [facility] Comment on above: Performed By: #### L 100.0100, L501.5200, L500.2500 #### [facility] [address] [place], [address] Hemoglobin (Bld) [Mass/Vol] 11.7 g/dL Low 12.0-15.0 [facility] Comment on above: Performed By: #### L 100.0100, L501.5200, L500.2500 #### [facility] [address] [place], [address] IG% 0.400 Normal 0.0-0.9 [facility] Comment on above: Result Comment: IG% - Immature Granulocytes (promyelocytes, myelocytes and metamyelocytes) > 1% indicates that a LEFT SHIFT is Present. Performed By: #### L 100.0100, L501.5200, L500.2500 #### [facility] [address] [place], [address] Lymphocytes/100 WBC (Bld) 15.0 % Low 19-41 [facility] Comment on above: Performed By: #### L 100.0100, L501.5200, L500.2500 #### [facility] [address] [place], [address] MCH (RBC) [Entitic mass] 30.5 pg Normal 27.0-32.0 [facility] Comment on above: Performed By: #### L 100.0100, L501.5200, L500.2500 #### [facility] [address] [place], [address] MCHC (RBC) [Mass/Vol] 32.3 g/dL Normal 32-36 [facility] Comment on above: Performed By: #### L 100.0100, L501.5200, L500.2500 #### [facility] [address] [place], [address] MCV (RBC) [Entitic vol] 94.5 fL Normal 81-99 [facility] Comment on above: Performed By: #### L 100.0100, L501.5200, L500.2500 #### [facility] [address] [place], [address] Monocytes/100 WBC (Bld) 12.2 % High 0-10 [facility] Comment on above: Performed By: #### L 100.0100, L501.5200, L500.2500 #### [facility] [address] [place], [address] Neutrophils/100 WBC (Bld) 71.0 % High 47-70 [facility] Comment on above: Performed By: #### L 100.0100, L501.5200, L500.2500 #### [facility] [address] [place], [address] Nucleated RBC (Bld) [#/Vol] 0 10*3/uL Normal 0-5 [facility] Comment on above: Performed By: #### L 100.0100, L501.5200, L500.2500 #### [facility] [address] [place], [address] Platelet mean volume (Bld) [Entitic vol] 10.2 fL Normal 6.2-12.0 [facility] Comment on above: Performed By: #### L 100.0100, L501.5200, L500.2500 #### [facility] [address] [place], [address] Platelets (Bld) [#/Vol] 142 10*3/uL Low 150-450 [facility] Comment on above: Performed By: #### L 100.0100, L501.5200, L500.2500 #### [facility] [address] [place], [address] RBC (Bld) [#/Vol] 3.83 10*6/uL Low 4.2-5.4 [facility] Comment on above: Performed By: #### L 100.0100, L501.5200, L500.2500 #### [facility] [address] [place], [address] RDW SD 43.9 fl Normal 35.1-43.9 [facility] Comment on above: Performed By: #### L 100.0100, L501.5200, L500.2500 #### [facility] [address] [place], [address] WBC (Bld) [#/Vol] 5.1 10*3/uL Normal 4.4-11.0 [facility] Comment on above: Performed By: #### L 100.0100, L501.5200, L500.2500 #### [facility] [address] [place], [address] CPK Total, Creatine Kinaseon 11-26-2024 CPK TOTAL 183 U/L Normal 24-195 [facility] Comment on above: Performed By: #### L 100.0100, L501.5200, L500.2500 #### [facility] [address] [place], [address] Carbon dioxide, total [Moles /volume] in Central venous bloodOrdered By: Tanisha Bahena on 11-26-2024 CO2 [Moles/Vol] 25.6 mmol/L 21.0-32.0 [facility] Chest PA and Lateralon 11-26 Chest PA and Lateral [facility] Imaging Services [address] [facility] [place] [address] Chest PA and Lateral MR#: [id number] Acct: [id number] Name: LISA UP Rep #: [id number] : 1945 F 79 From: Osman aden MD PCP: Dr. Sylvia Lizama MD Status: REG ER Study: Chest PA and Lateral Date of Exam: 11/26/24 Exam# [id number] Ordering Dr: Tanisha Bahena DO PROCEDURE: CHEST PA AND LATERAL REASON FOR EXAM: Weakness, cough and chills. TECHNIQUE: Frontal and lateral views of the chest. COMPARISON: Comparison is made with prior study dated November 06, 2024. FINDINGS: EKG electrodes are seen. The heart is not enlarged. The lungs are clear. RAD/Chest PA and Lateral IMPRESSION: No acute abnormality is seen. Reading Location: [id number] CC: Dr. Tanisha Bahena DO; Dr. Sylvia Lizama MD Software Engineer Backend: Signed Normal [facility] Chloride assayOrdered By: Fredi Bahena on 11-26-2024 Chloride [Moles/Vol] 101 mmol/L 98-108 [facility] Comprehensive Metabolic Prof ilon 11-26-2024 Albumin [Mass/Vol] 3.7 g/dL Normal 3.4-4.8 [facility] Comment on above: Performed By: #### L 100.0100, L501.5200, L500.2500 #### [facility] [address] [place], [address] Albumin/Globulin [Mass ratio] 1.5 {ratio} Normal 0.9-2.4 [facility] Comment on above: Performed By: #### L 100.0100, L501.5200, L500.2500 #### [facility] [address] [place], [address] ALK PHOS 66 U/L Normal 35-104 [facility] Comment on above: Performed By: #### L 100.0100, L501.5200, L500.2500 #### [facility] [address] [place], [address] ALT [Catalytic activity/Vol] U/L Normal <=34 [facility] Comment on above: Performed By: #### L 100.0100, L501.5200, L500.2500 #### [facility] [address] [place], [address] AST [Catalytic activity/Vol] 27 U/L Normal <=31 [facility] Comment on above: Performed By: #### L 100.0100, L501.5200, L500.2500 #### [facility] [address] [place], [address] Bilirubin [Mass/Vol] 0.49 mg/dL Normal 0.00-1.30 [facility] Comment on above: Performed By: #### L 100.0100, L501.5200, L500.2500 #### [facility] [address] [place], [address] BUN/CRE 15.1 RATIO Normal 10-20 [facility] Comment on above: Performed By: #### L 100.0100, L501.5200, L500.2500 #### [facility] [address] [place], [address] Calcium [Mass/Vol] 9.4 mg/dL Normal 7.6-11.0 [facility] Comment on above: Performed By: #### L 100.0100, L501.5200, L500.2500 #### [facility] [address] [place], [address] Chloride [Moles/Vol] 101 mmol/L Normal 98-108 [facility] Comment on above: Performed By: #### L 100.0100, L501.5200, L500.2500 #### [facility] [address] [place], [address] CO2 [Moles/Vol] 25.6 mmol/L Normal 21.0-32.0 [facility] Comment on above: Performed By: #### L 100.0100, L501.5200, L500.2500 #### [facility] [address] [place], [address] Creatinine [Mass/Vol] 0.72 mg/dL Normal 0.70-1.20 [facility] Comment on above: Performed By: #### L 100.0100, L501.5200, L500.2500 #### [facility] [address] [place], [address] ECRCL 64.55 ml/min Normal 50-250 [facility] Comment on above: Performed By: #### L 100.0100, L501.5200, L500.2500 #### [facility] [address] [place], [address] GAP 11 Normal 5-15 [facility] Comment on above: Performed By: #### L 100.0100, L501.5200, L500.2500 #### [facility] [address] [place], [address] GFR/1.73 sq M.predicted among non-blacks MDRD (S/P/Bld) [Vol rate/Area] 83 mL/min/{1.73_m2} Normal >60 [facility] Comment on above: Result Comment: mL/m in/1.73m2 CKD-EPI Creatinine Equation (2020) Performed By: #### L 100.0100, L501.5200, L500.2500 #### [facility] [address] [place], [address] Globulin (S) [Mass/Vol] 2.4 g/dL Normal 2.2-4.2 [facility] Comment on above: Performed By: #### L 100.0100, L501.5200, L500.2500 #### [facility] [address] [place], [address] Glucose [Mass/Vol] 108 mg/dL High 70-99 [facility] Comment on above: Performed By: #### L 100.0100, L501.5200, L500.2500 #### [facility] [address] [place], [address] Potassium [Moles/Vol] 4.1 mmol/L Normal 3.3-5.1 [facility] Comment on above: Performed By: #### L 100.0100, L501.5200, L500.2500 #### [facility] [address] [place], [address] Sodium [Moles/Vol] 138 mmol/L Normal 133-145 [facility] Comment on above: Performed By: #### L 100.0100, L501.5200, L500.2500 #### [facility] [address] [place], [address] T PROT 6.1 g/dL Normal 5.9-8.4 [facility] Comment on above: Performed By: #### L 100.0100, L501.5200, L500.2500 #### [facility] [address] [place], [address] Urea nitrogen [Mass/Vol] 11 mg/dL Normal 4-19 [facility] Comment on above: Performed By: #### L 100.0100, L501.5200, L500.2500 #### [facility] [address] [place], [address] Emergency Department Summary on 11-26-2024 Emergency Department Summary [facility] Medical Records Department [address] [place] [address] Emergency Department Summary 11/26/24 MR#: [id number] Acct: [id number] Name: LISA UP Rep #: [id number] : 1945 79 From: Tanisha Bahena DO PCP: Dr. Sylvia Lizama MD Status:ADM DEBORAH Location: [address] History of Present Illness Chief Complaint: Fall Informant: patient and family Narrative Narrative: Patient is 79-year-old female with history of sleep apnea, restless leg, neuropathy, GERD, CHRISTIANA, hypertension and weakness presenting with continued cough, fevers and respiratory illness. Patient states she had a fever last night of 101 with associated chills. She was sweating taken off her close because she was sweating so much when she fell. She is not sure if she passed out but she landed on the ground. She does not think she hit her head. States she was too weak to get up and was on the floor all night. She does live home alone. She notes she has been having some ongoing nausea and intermittent diarrhea. Denies any vomiting. States for the past few weeks she is also been having dizziness lightheadedness. She was diagnosed with COVID at some point in the past few weeks. She thinks it was about 2 weeks ago. She notes she is continue to have a cough has been productive of phlegm which she describes as cream-colored. Denies any chest pain currently but has been having some chest pain with all of this. Did hit her right knee when she fell and complain of pain there. Has a history of prior knee replacement. No other complaints or concerns reported at this time. Patient is on any blood thinners. [facility] Medical History DVT (deep venous thrombosis) Post-menopausal Dyspnea History of stress test Ovarian tumor Anticoagulant long-term use Non Hodgkin's lymphoma Dehiscence of surgical wound GERD (gastroesophageal reflux disease) Restless leg syndrome Peripheral neuropathy Osteoarthritis Hypertension Morbid obesity with BMI of 40.0-44.9, adult Home Medications ???Medication ???Instructions ???Recorded ???Last Taken ???Type potassium chloride 10 mEq 10 meq PO BID supplement 06/07/18 11/25/24 History tablet,extended release(part/cryst) multivitamin with folic acid 400 1 tab PO DAILY vitamin 08/01/18 History mcg tablet (Thera) apixaban 5 mg tablet 5 mg PO BID blood thinner 08/13/20 11/25/24 History levothyroxine 75 mcg tablet 75 mcg PO DAILY thyroid 07/30/22 0 11/25/24 History carvedilol 25 mg tablet 25 mg PO BID blood pressure 11/25/24 History gabapentin 400 mg capsule 400 mg PO TID nerve pain 03/24/24 11/25/24 History hydralazine 50 mg tablet 50 mg PO BID blood pressure 11/25/24 History paroxetine HCl 10 mg tablet 10 mg PO DAILY mental health 03/2411/25/24 History clonidine HCl 0.1 mg tablet 0.1 mg PO BID 30 days #60 tabs 02/1211/25/24 Rx losartan 100 mg tablet 100 mg PO DAILY 07/04/24 11/25/24 History meclizine 25 mg tablet 25 mg PO TID 07/04/24 Unknown Hist ory omeprazole 20 mg capsule,delayed 20 mg PO DAILY PRN acid reflux 11/25/24 History release albuterol sulfate 90 mcg/actuation 2 puff inhalation Q4H PRN Wheezi ng 11/26/24 11/25/24 History aerosol inhaler (Ventolin HFA) Allergy/AdvReac Type Severity Reaction Status Date / Time COVID-19 vaccine, mRNA, Allergy Anaphylaxis Verified 11/26/24 11:17 [id number], erythromycin base Allergy Rash Verified 11/26/24 11:17 (Erythromycin Base) lisinopril Allergy Swelling Verified 11/26/24 11:17 venom-wasp (wasp) Allergy NEEDS Verified 11/26/24 11:17 FOLLOW-UP amlodipine AdvReac Swelling Verified 11/26/24 11:17 latex AdvReac Swelling Verified 11/26/24 11:17 Family History Mother Hypertension Surgical History S/P laparoscopic cholecystectomy S/P hysterectomy H/O laminectomy History of partial nephrectomy History of tonsillectomy History of total knee arthroplasty History of total abdominal hysterectomy Social History Smoking Status: Never smoker ROS ROS ED Constitutional Constitutional ED: Reports chills, fever(s) and sweats Eyes Eyes: Denies blurry vision or change in vision ENT ENT ED: Denies sore throat Cardiovascular Cardiovascular: Reports chest pain; Denies palpitations Respiratory/Chest Respiratory/Chest: Reports cough, dyspnea and sputum Gastrointestinal Gastrointestinal: Reports diarrhea and nausea; Denies abdominal pain or vomiting Musculoskeletal Musculoskeletal: Reports arthralgias and myalgias Integumentary Denies rash Neurologic Neurologic: Rep (more content not included)... Normal [facility] Eosinophil percentageOrdered By: Tanisha Bahena on 11-26-2024 Eosinophils/100 WBC (Bld) 1.2 % 0-5 [facility] Epithelial cells.squamous LM Ql (Urine sed)Ordered By: Tanisha Bahena on 11-26-2024 Epithelial cells.squamous LM.HPF (Urine sed) [#/Area] 0 /[HPF] 5-10 [facility] Erythrocyte distribution wid th ratioOrdered By: Tanisha Bahena on 11-26-2024 Erythrocyte distribution width (RBC) [Ratio] 12.8 % 11.6-14.6 [facility] Erythrocyte distribution wid th standard deviationOrdered By: Tanisha Bahena on 11-26-2024 Erythrocyte distribution width (RBC) [Entitic vol] 43.9 fL 35.1-43.9 [facility] [facility] Estimation of creatinine ping aranceOrdered By: Tanisha Bahena on 11-26-2024 Estimated Creatinine Clearance Calc 64.55 ml/min 50-250 [facility] GFR/1.73 sq M.predicted germán g non-blacks MDRD (S/P/Bld) [Vol rate/Area]Ordered By: Tanisha Bahena on 11-26-2024 Estimated GFR (MDRD) Non-Af Amer 83 >60 [facility] Comment on above: mL/min/1.73m2 CKD-EP I Creatinine Equation (2020) Glucose Ql (U)Ordered By: Fredi Bahena on 11-26-2024 Urine Glucose (UA) Normal mg/dl Normal [facility] H AND P Exam - [facility] 11-26-2024 H&P Exam - Hospitalist [facility] Medical Records Department [address] [place] [address] H P Exam - Hospitalist 11/26/24 1607 MR#: [id number] Acct: [id number] Name: LISA UP Rep #: [id number] : 1945 79 From: Jaxson Meehan DO PCP: Dr. Sylvia Lizama MD Status:ADM DEBORAH Location: [place] [address] HPI - General General Date of Admission: 11/26/24 Date of Service: 11/26/24 Chief Complaint: weakness with fall at home HPI Narrative LISA UP, is a 79 F who presented to [facility] ED on 11/26/2024 with weakness and a fall at home. Patient lives at home alone, does have family that lives close by. Patient has history of non-Hodgkin's lymphoma, follows with Dr. Quintero. She initially completed 2 rounds of Rituxan immunotherapy in 2021. She was found to have progression of disease on recent CT scans and underwent Rituxan infusions weekly for 4 weeks in September. During treatment she generally felt fatigued and had frequent nausea with decreased p.o. intake. Shortly after completing treatment, she was diagnosed with COVID. Since then she has continued to feel weak and has not been able to do much around the house for herself. Last night she had a subjective fever of 101F with associated chills. She attempted to get out of bed to take off some close because she was sweating so much and she was so weak that she fell to the ground. Did not hit her head. She then laid on the ground all night because of her weakness. She called family this morning who then called EMS to bring her into the hospital. In the ED she was hypertensive to the 190 systolic but otherwise hemodynamically stable on room air. She did spike a fever of 101.9F later this evening. Labs are fairly benign. Chest x-ray was nonacute. CT brain showed no acute bleed, did show an area concerning for subacute versus old stroke. MRI brain was obtained and showed only chronic changes, no acute changes. Patient has required SNF placement in the past and would be agreeable to SNF placement at this time as well. Given these findings, hospitalist was contacted for admission. I saw the patient at bedside in the ED, daughter and son-in-law are present. Patient was mildly fatigued appearing but otherwise sitting back comfortably in bed, conversing normally, in no acute distress. She denied any lightheadedness or dizziness at rest. She felt generally weak but denied any focal right or left-sided weakness. She denied any fevers or chills currently. Denied any chest pain or shortness of breath. Denied any other acute concerns at this time. [facility] Medical History DVT (deep venous thrombosis) Post-menopausal Dyspnea History of stress test Ovarian tumor Anticoagulant long-term use Non Hodgkin's lymphoma Dehiscence of surgical wound GERD (gastroesophageal reflux disease) Restless leg syndrome Peripheral neuropathy Osteoarthritis Hypertension Morbid obesity with BMI of 40.0-44.9, adult Home Medications ???Medication ???Instructions ???Recorded ???Last Taken ???Type potassium chloride 10 mEq 10 meq PO BID supplement 06/07/18 11/25/24 History tablet,extended release(part/cryst) multivitamin with folic acid 400 1 tab PO DAILY vitamin 08/01/18 History mcg tablet (Thera) apixaban 5 mg tablet 5 mg PO BID blood thinner 08/13/20 11/25/24 History levothyroxine 75 mcg tablet 75 mcg PO DAILY thyroid 07/30/22 0 11/25/24 History carvedilol 25 mg tablet 25 mg PO BID blood pressure 11/25/24 History gabapentin 400 mg capsule 400 mg PO TID nerve pain 03/24/24 11/25/24 History hydralazine 50 mg tablet 50 mg PO BID blood pressure 11/25/24 History paroxetine HCl 10 mg tablet 10 mg PO DAILY mental health 03/2411/25/24 History clonidine HCl 0.1 mg tablet 0.1 mg PO BID 30 days #60 tabs 02/1211/25/24 Rx losartan 100 mg tablet 100 mg PO DAILY 07/04/24 11/25/24 History meclizine 25 mg tablet 25 mg PO TID 07/04/24 Unknown Hist ory omeprazole 20 mg capsule,delayed 20 mg PO DAILY PRN acid reflux 11/25/24 History release albuterol sulfate 90 mcg/actuation 2 puff inhalation Q4H PRN Wheezi ng 11/26/24 11/25/24 History aerosol inhaler (Ventolin HFA) Allergy/AdvReac Type Severity Reaction Status Date / Time COVID-19 vaccine, mRNA, Allergy Anaphylaxis Verified 11/26/24 11:17 [id number], erythromycin base Allergy Rash Verified 11/26/24 11:17 (Erythromycin Base) lisinopril Allergy Swelling Verified 11/26/24 11:17 venom-wasp (wasp) Allergy NEEDS Verified 11/26/24 11:17 FOLLOW-UP amlodipine AdvReac Swelling Verified 11/26/24 11:17 latex AdvReac Swelling Verified 11/26/24 11:17 Family History Mother Hypertension Surgical Histo (more content not included)... Normal [facility] Hematocrit Auto (Bld) [Volum e fraction]Ordered By: Tanisha Bahena on 11-26-2024 Hematocrit (Bld) [Volume fraction] 36.2 % Low 37-47 [facility] Hemoglobin measurementOrdere d By: Tanisha Bahena on 11-26-2024 Hemoglobin (Bld) [Mass/Vol] 11.7 g/dL Low 12.0-15.0 [facility] Immature granulocytes/100 WB C Auto (Bld)Ordered By: Tanisha Bahena on 11-26-2024 Immature granulocytes/100 WBC (Bld) 0.400 % 0.0-0.9 [facility] Comment on above: IG% - Immature Granu locytes (promyelocytes, myelocytes and metamyelocytes) > 1% indicates that a LEFT SHIFT is Present. Influenza virus A and B and SARS-CoV-2 (COVID-19) and Respiratory syncytial virus RNAOrdered By: Tanisha Bahena on 11-26-2024 SARS-CoV-2 (COVID-19) RNA ANALI+probe Ql (Unsp spec) SARS-CoV-2 (COVID 19 PCR) Abnormal [facility] SARS-CoV-2 (COVID-19) RNA ANALI+probe Ql (Unsp spec) SARS-CoV-2 (COVID 19 PCR) Abnormal [facility] Ketones Test strip Ql (U)Ord ered By: Tanisha Bahena on 11-26-2024 Ketones Ql (U) Negative Negative [facility] Knee 4 or More Viewson 11-26 Knee 4 or More Views [facility] Imaging Services [address] [place] [address] [id number] Knee 4 or More Views MR#: [id number] Acct: [id number] Name: LISA UP Rep #: [id number] : 1945 F 79 From: Osman aden MD PCP: Dr. Sylvia Lizama MD Status: REG ER Study: Knee 4 or More Views Date of Exam: 11/26/24 Exam# [id number] Ordering Dr: Tanisha Bahena DO PROCEDURE: KNEE 4 OR MORE VIEWS REASON FOR EXAM: Pain and difficulty with ambulation following a fall. TECHNIQUE: 4 view(s) of the right knee COMPARISON: None. FINDINGS: The patient is status post right total knee replacement. There is good alignment. No evidence of joint effusion. RAD/Knee 4 or More Views IMPRESSION: Status post total knee replacement. No acute abnormality is seen. Reading Location: [facility] CC: Dr. Tanisha Bahena DO; Dr. Sylvia Lizama MD Software Engineer Backend: Signed Normal [facility] L499.0042on 11-26-2024 Trop T High Sen 18 ng/L High <=14 [facility] Comment on above: Performed By: #### L 100.0100, L501.4020, L500.2500 #### [facility] [address] [place], [address] Trop T High Sen Normal <=14 [facility] Comment on above: Result Comment: REOR NOEL WILL NOT RUN Performed By: #### L 499.0042 ####[facility] [address] [place], [address] L499.0043on 11-26-2024 Trop T High Sen 20 ng/L High <=14 [facility] Comment on above: Performed By: #### L 100.0100, L501.4020, L500.2500 #### [facility] [address] [place], [address] L501.4021on 11-26-2024 Trop T High Sen 18 ng/L High <=14 [facility] Comment on above: Performed By: #### L 100.0100, L501.4020, L500.2500 #### [facility] [address] [place], [address] Laboratory - Chemistry and C hemistry - challengeOrdered By: Tanisha Bahena on 11-26-2024 AST [Catalytic activity/Vol] 27 U/L <32 [facility] Lactic Acidon 11-26-2024 Lactate [Moles/Vol] mmol/L Normal 0.0-2.0 [facility] Comment on above: Order Comment: Y Performed By: #### L 100.0100, L501.5200, L500.2500 #### [facility] [address] [place], [address] Lactic acid measurementOrder ed By: Tanisha Bahena on 11-26-2024 Lactate [Moles/Vol] mmol/L 0.0-2.0 [facility] Lymphocytes Auto (Unsp spec) [#/Vol]Ordered By: Tanisha Bahena on 11-26-2024 Lymphocytes (Bld) [#/Vol] 0.76 10*3/uL Low 0.83-4.51 [facility] Lymphocytes/100 WBC Auto (Un sp spec)Ordered By: Tanisha Bahena on 11-26-2024 Lymphocytes/100 WBC (Bld) 15.0 % Low 19-41 [facility] M100.678on 11-26-2024 M100.678 Copy of report sent to Infection Control Printer MS#[id number] 11/26/24 4888 [employer]. FLUABV+SARS-CoV-2+RSV Pnl Resp ANALI+probe FLUABV+SARS-CoV-2+RSV Pnl Resp ANALI+probe SARS-CoV-2 (COVID 19) A Positive A INFLUENZA A Negative INFLUENZA B Negative RSV PCR Negative SARS-CoV-2 (COVID 19 PCR) Normal [facility] Comment on above: Performed By: #### L 100.0100, L501.4020, L500.2500 #### [facility] [address] [place], [address] MCV (mean corpuscular volume ) determinationOrdered By: Tanisha Bahena on 11-26-2024 MCV (RBC) [Entitic vol] 94.5 fL 81-99 [facility] Magnetic resonance imaging r eportOrdered By: Yoni Bhatt on 11-26-2024 Study report [facility] Imaging Services [address] [place] [address] Brain without Contrast MR#: [id number] Acct: [id number] Name: LISA UP Rep #: [id number] : 1945 F 79 From: Sam Bhatt DO PCP: Dr. Sylvia Lizama MD Status: ADM I NO Study:Brain without Contrast Date of Exam: 11/26/24 Exam# [id number] Ordering Dr: Jaxson Castillo DO PROCEDURE: CT brain without IV contrast REASON FOR EXAM: Neurologic deficit, evaluate for CVA TECHNIQUE: Multisequence multiplanar MR images of the brain were obtained without the administration of intravenous contrast. COMPARISON: Same day CT FINDINGS: No diffusion restriction to suggest acute/subacute ischemia. Moderate generalized cerebral atrophy and chronic small-vessel ischemic changes. No suspicious cortical edema. No hydrocephalus. No evidence of chronic microhemorrhage. Globes are intact. Rather extensive mucosal thickening throughout the ethmoid sinuses. Mild left sphenoid, bilateral maxillary and frontal sinus mucosal thickening. MRI/Brain without Contrast IMPRESSION: 1. No acute intracranial abnormality. 2. Atrophy and chronic small-vessel ischemic disease. 3. Moderate scattered paranasal sinus disease. Reading Location: [id number] CC: Dr. Jaxson Meehan DO; Dr. Sylvia Lizama MD ~ Software Engineer Backend: Signed [facility] Mean corpuscular hemoglobin (MCH) determinationOrdered By: Tanisha Bahena on 11-26-2024 MCH (RBC) [Entitic mass] 30.5 pg 27.0-32.0 [facility] Mean corpuscular hemoglobin concentration (MCHC) determinationOrdered By: Tanisha Bahena on 11-26-2024 MCHC (RBC) [Mass/Vol] 32.3 g/dL 32-36 [facility] Mean platelet volume determi nationOrdered By: Tanisha Bahena on 11-26-2024 Platelet mean volume (Bld) [Entitic vol] 10.2 fL 6.2-12.0 [facility] Microscopic analysis of urin e for red blood cells (RBC)Ordered By: Tanisha Bahena on 11-26-2024 Urine RBC 0-5 SEEN /hpf 0-5 [facility] Monocyte percentageOrdered B y: Tanisha Bahena on 11-26-2024 Monocytes/100 WBC (Bld) 12.2 % High 0-10 [facility] Mucus LM Ql (Urine sed)Order ed By: Tanisha Bahena on 11-26-2024 Mucus Ql (Urine sed) 0 SEEN /hpf [facility] Neutrophil percentageOrdered By: Tanisha Bahena on 11-26-2024 Neutrophils/100 WBC (Bld) 71.0 % High 47-70 [facility] Nitrite Test strip Ql (U)Ord ered By: Tanisha Bahena on 11-26-2024 Nitrite Ql (U) Negative Negative [facility] No Panel InformationOrdered By: Tanisha Bahena on 11-26-2024 Troponin T High Sensitivity 18 ng/L High <14 [facility] Nucleated red blood cell per centageOrdered By: Tanisha Bahena on 11-26-2024 Nucleated RBC/100 WBC (Bld) [Ratio] 0 % 0-5 [facility] Platelet countOrdered By: Fredi Bahena on 11-26-2024 Platelets (Bld) [#/Vol] 142 10*3/uL Low 150-450 [facility] Potassium (Unsp spec) [Mass/ Vol]Ordered By: Tanisha Bahena on 11-26-2024 Potassium [Moles/Vol] 4.1 mmol/L 3.3-5.1 [facility] Protein Test strip Ql (U)Ord ered By: Tanisha Bahena on 11-26-2024 Protein Ql (U) 15 mg/dl High Negative [facility] RBC Auto (Bld) [#/Vol]Ordere d By: Tanisha Bahena on 11-26-2024 RBC (Bld) [#/Vol] 3.83 10*6/uL Low 4.2-5.4 [facility] Serum creatinine measurement (mass/volume)Ordered By: Tanisha Bahena on 11-26-2024 Creatinine [Mass/Vol] 0.72 mg/dL 0.70-1.20 [facility] Serum globulin measurementOr dered By: Tanisha Bahena on 11-26-2024 Globulin (S) [Mass/Vol] 2.4 g/dL 2.2-4.2 [facility] Serum glucose measurement (m ass/volume)Ordered By: Tanisha Bahena on 11-26-2024 Glucose [Mass/Vol] 108 mg/dL High 70-99 [facility] Serum or plasma alanine rice otransferase (ALT) measurementOrdered By: Tanisha Bahena on 11-26-2024 ALT [Catalytic activity/Vol] U/L <35 [facility] Serum or plasma albumin cirilo urement (mass/volume)Ordered By: Tanisha Bahena on 11-26-2024 Albumin [Mass/Vol] 3.7 g/dL 3.4-4.8 [facility] Serum or plasma albumin/glob ulin mass ratioOrdered By: Tanisha Bahena on 11-26-2024 Albumin/Globulin [Mass ratio] 1.5 {ratio} 0.9-2.4 [facility] Serum or plasma alkaline anitha sphatase measurementOrdered By: Tanisha Bahena on 11-26-2024 ALP [Catalytic activity/Vol] 66 U/L 35-104 [facility] Serum or plasma calcium cirilo urement (mass/volume)Ordered By: Tanisha Bahena on 11-26-2024 Calcium [Mass/Vol] 9.4 mg/dL 7.6-11.0 [facility] Serum or plasma creatine kin ase activityOrdered By: Tanisha Bahena on 11-26-2024 CK [Catalytic activity/Vol] 183 U/L 24-195 [facility] Serum or plasma urea nitroge n measurement (mass/volume)Ordered By: Tanisha Bahena on 11-26-2024 Urea nitrogen [Mass/Vol] 11 mg/dL 4-19 [facility] Sodium levelOrdered By: Nicole Bahena on 11-26-2024 Sodium [Moles/Vol] 138 mmol/L 133-145 [facility] Total proteinOrdered By: Danica Bahena on 11-26-2024 Protein [Mass/Vol] 6.1 g/dL 5.9-8.4 [facility] Troponin T.cardiac High sens itivity method [Mass/Vol]Ordered By: Jaxson Meehan on 11-26-2024 Troponin T High Sensitivity 2 Hour 18 ng/L High <14 [facility] Troponin T.cardiac High sens itivity method [Mass/Vol]Ordered By: Tanisha Bahena on 11-26-2024 Troponin T High Sensitivity 4 Hour 20 ng/L High <14 [facility] Urinalysis, Completeon 11-26 EPI,SQUAMOUS 0-5 SEEN Normal 5-10 [facility] Comment on above: Order Comment: 'TROP ' Serial specimen #1, #2 or #3: 1 Performed By: #### L 100.0100, L501.4020, L500.2500 #### [facility] [address] [place], [address] RBC 0-5 SEEN Normal 0-5 [facility] Comment on above: Order Comment: 'TROP ' Serial specimen #1, #2 or #3: 1 Performed By: #### L 100.0100, L501.4020, L500.2500 #### [facility] [address] [place], [address] WBC 0-5 SEEN Normal 0-5 [facility] Comment on above: Order Comment: 'TROP ' Serial specimen #1, #2 or #3: 1 Performed By: #### L 100.0100, L501.4020, L500.2500 #### [facility] [address] [place], [address] BACTERIA 0 SEEN Normal None Seen [facility] Comment on above: Order Comment: 'TROP ' Serial specimen #1, #2 or #3: 1 Performed By: #### L 100.0100, L501.4020, L500.2500 #### [facility] [address] [place], [address] Mucus Ql (Urine sed) 0 SEEN Normal [facility] Comment on above: Order Comment: 'TROP ' Serial specimen #1, #2 or #3: 1 Performed By: #### L 100.0100, L501.4020, L500.2500 #### [facility] [address] [place], [address] Urine blood detectionOrdered By: Tanisha Bahena on 11-26-2024 Urine Occult Blood 10 /ul High Negative [facility] Urine clarityOrdered By: Danica Bahena on 11-26-2024 Clarity (U) Clear Clear [facility] Urine color determinationOrd ered By: Tanisha Bahena on 11-26-2024 Color (U) Yellow Yellow [facility] Urine leukocyte esterase det ection by dipstickOrdered By: Tanisha Bahena on 03-07-2025 Leukocyte esterase Test strip Ql (U) Negative Negative [facility] Urine pHOrdered By: Tanisha garcia on 11-26-2024 pH (U) 7.0 [pH] 5.0 - 8.0 [facility] Urine sediment bacteria coun t by microscopy (number/high power field)Ordered By: Tanisha Bahena on 11-26-2024 Bacteria LM.HPF (Urine sed) [#/Area] 0 /[HPF] None Seen [facility] Urine specific gravity measu rementOrdered By: Tanisha Bahena on 11-26-2024 Specific gravity (U) [Rel density] 1.010 1.002-1.030 [facility] Urobilinogen Ql (U)Ordered B y: Tanisha Bahena on 11-26-2024 Urobilinogen (U) [Mass/Vol] 1 mg/dL High Normal [facility] White blood cell (WBC) count Ordered By: Tanisha Bahena on 11-26-2024 WBC (Bld) [#/Vol] 5.1 10*3/uL 4.4-11.0 [facility] White blood cell countOrdere d By: Tanisha Bahena on 11-26-2024 Urine WBC 0-5 SEEN /hpf 0-5 [facility] Absolute neutrophil countOrd ered By: Zeny Wolff on 11-06-2024 Neutrophils (Bld) [#/Vol] 1.8 10*3/uL Low 2.0-7.7 [facility] Basic Metabolic Profile (BMP )on 11-06-2024 BUN/CRE 11.6 RATIO Normal 10-20 [facility] Comment on above: Performed By: #### L 100.0100, L501.4020, L500.2500 #### [facility] [address] [place], [address] CA,Total 8.9 mg/dL Normal 8.5-10.1 [facility] Comment on above: Performed By: #### L 100.0100, L501.4020, L500.2500 #### [facility] [address] [place], [address] Chloride [Moles/Vol] 110 mmol/L High 98-107 [facility] Comment on above: Performed By: #### L 100.0100, L501.4020, L500.2500 #### [facility] [address] [place], [address] CO2 [Moles/Vol] 26.0 mmol/L Normal 21.0-32.0 [facility] Comment on above: Performed By: #### L 100.0100, L501.4020, L500.2500 #### [facility] [address] [place], [address] Creatinine [Mass/Vol] 0.78 mg/dL Normal 0.55-1.02 [facility] Comment on above: Result Comment: The validity of the calculated GFR GFRAA in patients over 70 years has not been determined. Clinical correlation is essential. Performed By: #### L 100.0100, L501.4020, L500.2500 #### [facility] [address] [place], [address] EST GFR - AA 91 mL/min Normal >60 [facility] Comment on above: Result Comment: Afri can Angolan GFR Calc Performed By: #### L 100.0100, L501.4020, L500.2500 #### [facility] [address] [place], [address] GAP 6 Normal 5-15 [facility] Comment on above: Performed By: #### L 100.0100, L501.4020, L500.2500 #### [facility] [address] [place], [address] GFR/1.73 sq M.predicted among non-blacks MDRD (S/P/Bld) [Vol rate/Area] 75 mL/min/{1.73_m2} Normal >60 [facility] Comment on above: Result Comment: Non- GFR Calc Performed By: #### L 100.0100, L501.4020, L500.2500 #### [facility] [address] [place], [address] Glucose [Mass/Vol] 104 mg/dL Normal 74-106 [facility] Comment on above: Result Comment: Fast ing Glucose result from 100 to 125 mg/dL suggests IMPAIRED HOMEOSTASIS per A.D.A. criteria. Performed By: #### L 100.0100, L501.4020, L500.2500 #### [facility] [address] [place], [address] Potassium [Moles/Vol] 3.5 mmol/L Normal 3.5-5.1 [facility] Comment on above: Performed By: #### L 100.0100, L501.4020, L500.2500 #### [facility] [address] [place], [address] Sodium [Moles/Vol] 142 mmol/L Normal 136-145 [facility] Comment on above: Performed By: #### L 100.0100, L501.4020, L500.2500 #### [facility] [address] [place], [address] Urea nitrogen [Mass/Vol] 9 mg/dL Normal 7-18 [facility] Comment on above: Performed By: #### L 100.0100, L501.4020, L500.2500 #### [facility] [address] [place], [address] Basophil percentageOrdered B y: Zeny Wolff on 11-06-2024 Basophils/100 WBC (Bld) 0.0 % 0-1 [facility] Blood urea nitrogen (BUN)/cr eatinine ratioOrdered By: Zeny Wolff on 11-06-2024 Urea nitrogen/Creatinine [Mass ratio] 11.6 mg/mg 10-20 [facility] CBC W/Diff, Automatedon 10-23 Absolute Lymph 0.83 X10 3/uL Normal 0.83-4.51 [facility] Comment on above: Performed By: #### L 100.0100, L501.4020, L500.2500 #### [facility] [address] [place], [address] Absolute Neut 1.8 X10 3/uL Low 2.0-7.7 [facility] Comment on above: Performed By: #### L 100.0100, L501.4020, L500.2500 #### [facility] [address] [place], [address] Basophils/100 WBC (Bld) 0.0 % Normal 0-1 [facility] Comment on above: Performed By: #### L 100.0100, L501.4020, L500.2500 #### [facility] [address] [place], [address] Eosinophils/100 WBC (Bld) 2.3 % Normal 0-5 [facility] Comment on above: Performed By: #### L 100.0100, L501.4020, L500.2500 #### [facility] [address] [place], [address] Erythrocyte distribution width (RBC) [Ratio] 12.8 % Normal 11.6-14.6 [facility] Comment on above: Performed By: #### L 100.0100, L501.4020, L500.2500 #### [facility] [address] [place], [address] Hematocrit (Bld) [Volume fraction] 37.2 % Normal 37-47 [facility] Comment on above: Performed By: #### L 100.0100, L501.4020, L500.2500 #### [facility] [address] [place], [address] Hemoglobin (Bld) [Mass/Vol] 11.9 g/dL Low 12.0-15.0 [facility] Comment on above: Performed By: #### L 100.0100, L501.4020, L500.2500 #### [facility] [address] [place], [address] IG% 0.300 Normal 0.0-0.9 [facility] Comment on above: Result Comment: IG% - Immature Granulocytes (promyelocytes, myelocytes and metamyelocytes) > 1% indicates that a LEFT SHIFT is Present. Performed By: #### L 100.0100, L501.4020, L500.2500 #### [facility] [address] [place], [address] Lymphocytes/100 WBC (Bld) 26.8 % Normal 19-41 [facility] Comment on above: Performed By: #### L 100.0100, L501.4020, L500.2500 #### [facility] [address] [place], [address] MCH (RBC) [Entitic mass] 30.9 pg Normal 27.0-32.0 [facility] Comment on above: Performed By: #### L 100.0100, L501.4020, L500.2500 #### [facility] [address] [place], [address] MCHC (RBC) [Mass/Vol] 32.0 g/dL Normal 32-36 [facility] Comment on above: Performed By: #### L 100.0100, L501.4020, L500.2500 #### [facility] [address] [place], [address] MCV (RBC) [Entitic vol] 96.6 fL Normal 81-99 [facility] Comment on above: Performed By: #### L 100.0100, L501.4020, L500.2500 #### [facility] [address] [place], [address] Monocytes/100 WBC (Bld) 12.6 % High 0-10 [facility] Comment on above: Performed By: #### L 100.0100, L501.4020, L500.2500 #### [facility] [address] [place], [address] Neutrophils/100 WBC (Bld) 58.0 % Normal 47-70 [facility] Comment on above: Performed By: #### L 100.0100, L501.4020, L500.2500 #### [facility] [address] [place], [address] Nucleated RBC (Bld) [#/Vol] 0 10*3/uL Normal 0-5 [facility] Comment on above: Performed By: #### L 100.0100, L501.4020, L500.2500 #### [facility] [address] [place], [address] Platelet mean volume (Bld) [Entitic vol] 9.8 fL Normal 6.2-12.0 [facility] Comment on above: Performed By: #### L 100.0100, L501.4020, L500.2500 #### [facility] [address] [place], [address] Platelets (Bld) [#/Vol] 101 10*3/uL Low 150-450 [facility] Comment on above: Performed By: #### L 100.0100, L501.4020, L500.2500 #### [facility] [address] [place], [address] RBC (Bld) [#/Vol] 3.85 10*6/uL Low 4.2-5.4 [facility] Comment on above: Performed By: #### L 100.0100, L501.4020, L500.2500 #### [facility] [address] [place], [address] RDW SD 45.1 fl High 35.1-43.9 [facility] Comment on above: Performed By: #### L 100.0100, L501.4020, L500.2500 #### [facility] [address] [place], [address] WBC (Bld) [#/Vol] 3.1 10*3/uL Low 4.4-11.0 [facility] Comment on above: Performed By: #### L 100.0100, L501.4020, L500.2500 #### [facility] [address] [place], [address] Carbon dioxide measurementOr dered By: Zeny Wolff on 11-06-2024 CO2 [Moles/Vol] 26.0 mmol/L 21.0-32.0 [facility] Chest 1 View (Portable)on Chest 1 View (Portable) [facility] Imaging Services [address] [place] [address] Chest 1 View (Portable) MR#: [id number] Acct: [id number] Name: LISA UP Rep #: [id number] : 1945 F 79 From: Melyssa Hyatt nd, MD PCP: Dr. Sylvia Lizama MD Status: REG ER Study: Chest 1 View (Portable) Date of Exam: 11/06/24 Exam# [id number] Ordering Dr: Zeny Wolff DO PROCEDURE: CHEST 1 VIEW (PORTABLE) REASON FOR EXAM: 79-year-old female, cough and cold symptoms x1 week. TECHNIQUE: Frontal view of the chest. COMPARISON: Chest radiograph 07/04/2024. FINDINGS: The heart size is normal. The lungs are clear. No focal consolidation, pleural effusion or pneumothorax. Degenerative changes are identified within the thoracic spine. Right shoulder joint arthrosis. RAD/Chest 1 View (Portable) IMPRESSION: NEGATIVE CHEST. Reading Location: [facility] CC: Dr. Zeny Wolff DO; Dr. Sylvia Lizama MD Software Engineer Backend: Signed Normal [facility] Chloride measurementOrdered By: Zeny Wolff on 11-06-2024 Chloride [Moles/Vol] 110 mmol/L High 98-107 [facility] Emergency Department Summary on 11-06-2024 Emergency Department Summary [facility] Medical Records Department [address] [place] [address] Emergency Department Summary 11/06/24 MR#: [id number] Acct: [id number] Name: LISA UP Rep #: [id number] : 1945 79 From: Zeny Wolff DO PCP: Dr. Sylvia Lizaam MD Status:DEP ER Location: ED HPI History of Present Illness Chief Complaint: Cold Sx Informant: patient and family (Son) Narrative Narrative: 79-year-old female presenting to the emergency room with the chief complaint of not feeling well. Patient states past 3 weeks she has had cough runny nose/congestion fatigue some diarrhea. She states that she was seen at [facility] urgent care on November 01 and was diagnosed with a UTI. Urine culture per MyChart grew out mixed radha. She was treated with nitrofurantoin. She also had a chest x-ray that was negative. She states that nothing is particularly different today it just has persisted. She feels globally weak. She states she is not eating as well. [facility] Medical History DVT (deep venous thrombosis) Post-menopausal Dyspnea History of stress test Ovarian tumor Anticoagulant long-term use Non Hodgkin's lymphoma Dehiscence of surgical wound GERD (gastroesophageal reflux disease) Restless leg syndrome Peripheral neuropathy Osteoarthritis Hypertension Morbid obesity with BMI of 40.0-44.9, adult Home Medications ???Medication ???Instructions ???Recorded ???Last Taken ???Type potassium chloride 10 mEq 10 meq PO BID supplement 06/07/18 03/24/24 History tablet,extended release(part/cryst) multivitamin with folic acid 400 1 tab PO DAILY vitamin 08/01/18 History mcg tablet (Thera) apixaban 5 mg tablet 5 mg PO BID blood thinner 08/13/20 03/24/24 History levothyroxine 75 mcg tablet 75 mcg PO DAILY thyroid 07/30/22 0 03/24/24 History carvedilol 25 mg tablet 25 mg PO BID blood pressure 03/24/24 History gabapentin 400 mg capsule 400 mg PO TID nerve pain 03/24/24 03/24/24 History hydralazine 50 mg tablet 50 mg PO BID blood pressure 03/24/24 History paroxetine HCl 10 mg tablet 10 mg PO DAILY mental health 03/2403/24/24 History clonidine HCl 0.1 mg tablet 0.1 mg PO BID 30 days #60 tabs 02/12 Unknown Rx amoxicillin 875 mg-potassium 1 tab PO BID 07/04/24 Unknown Hist ory clavulanate 125 mg tablet losartan 100 mg tablet 100 mg PO DAILY 07/04/24 Unknown H istory meclizine 25 mg tablet 25 mg PO TID 07/04/24 Unknown Hist ory omeprazole 20 mg capsule,delayed 20 mg PO DAILY 07/04/24 Unknown Hi story release prednisone 10 mg tablet mg PO 07/04/24 Unknown History albuterol sulfate 90 mcg/actuation 2 puff inhalation Q4H PRN PRN Unknown Rx aerosol inhaler (Ventolin HFA) Wheezing ##1 amoxicillin 875 mg-potassium 875 mg PO Q12H #20 TABLETS 5 Unknown Rx clavulanate 125 mg tablet Allergy/AdvReac Type Severity Reaction Status Date / Time COVID-19 vaccine, mRNA, Allergy Anaphylaxis Verified 11/06/24 13:43 [id number], erythromycin base Allergy Rash Verified 11/06/24 13:43 (Erythromycin Base) lisinopril Allergy Swelling Verified 11/06/24 13:43 venom-wasp (wasp) Allergy NEEDS Verified 11/06/24 13:43 FOLLOW-UP amlodipine AdvReac Swelling Verified 11/06/24 13:43 latex AdvReac Swelling Verified 11/06/24 13:43 Family History Mother Hypertension Surgical History S/P laparoscopic cholecystectomy S/P hysterectomy H/O laminectomy History of partial nephrectomy History of tonsillectomy History of total knee arthroplasty History of total abdominal hysterectomy Social History Smoking Status: Never smoker ROS ROS ED ROS Narrative Generalized fatigue Constitutional Constitutional ED: Reports chills; Denies weight loss Eyes Eyes: Denies change in vision or diplopia ENT ENT ED: Reports ear pain, rhinorrhea and other Details: Decreased hearing left ear ; Denies sore throat Cardiovascular Cardiovascular: Denies chest pain, orthopnea, palpitations or racing heartbeat Respiratory/Chest Respiratory/Chest: Reports cough and dyspnea; Denies orthopnea Gastrointestinal Gastrointestinal: Reports diarrhea; Denies abdominal pain, nausea or vomiting Genitourinary Genitourinary ED: Denies dysuria, hematuria or urinary frequency Musculoskeletal Musculoskeletal: Denies arthralgias or myalgias Integumentary Denies abscess or rash Neurologic Neurologic: Reports headache(s); Denies weakness Psychiatric Psychiatric: Denies anxiety, depression, suicidal ideation or suicidal thoughts Endocrine Endocrinology: Denies polydipsia, po (more content not included)... Normal [facility] Eosinophil percentageOrdered By: Zeny Wolff on 11-06-2024 Eosinophils/100 WBC (Bld) 2.3 % 0-5 [facility] Erythrocyte distribution wid th ratioOrdered By: Zeny Wolff on 11-06-2024 Erythrocyte distribution width (RBC) [Ratio] 12.8 % 11.6-14.6 [facility] Erythrocyte distribution wid th standard deviationOrdered By: Zeny Wolff on 11-06-2024 Erythrocyte distribution width (RBC) [Entitic vol] 45.1 fL High 35.1-43.9 [facility] Estimated glomerular filtrat ion rate (GFR) AmericanOrdered By: Zeny Wolff on 11-06-2024 Estimated GFR (MDRD) Amer 91 mL/min >60 [facility] Comment on above: GFR Calc Glomerular filtration rate ( GFR) estimationOrdered By: Zeny Wolff on 11-06-2024 Estimated GFR (MDRD) Non-Af Amer 75 mL/min >60 [facility] Comment on above: Non- GFR Calc Glucose measurementOrdered B y: Zeny Wolff on 11-06-2024 Glucose [Mass/Vol] 104 mg/dL 74-106 [facility] Comment on above: Fasting Glucose resu lt from 100 to 125 mg/dL suggests IMPAIRED HOMEOSTASIS per A.D.A. criteria. Hematocrit Auto (Bld) [Volum e fraction]Ordered By: Zeny Wolff on 11-06-2024 Hematocrit (Bld) [Volume fraction] 37.2 % 37-47 [facility] Hemoglobin measurementOrdere d By: Zeny Wolff on 11-06-2024 Hemoglobin (Bld) [Mass/Vol] 11.9 g/dL Low 12.0-15.0 [facility] Immature granulocytes/100 WB C Auto (Bld)Ordered By: Zeny Wolff on 11-06-2024 Immature granulocytes/100 WBC (Bld) 0.300 % 0.0-0.9 [facility] Comment on above: IG% - Immature Granu locytes (promyelocytes, myelocytes and metamyelocytes) > 1% indicates that a LEFT SHIFT is Present. Lymphocytes Auto (Unsp spec) [#/Vol]Ordered By: Zeny Wolff on 11-06-2024 Lymphocytes (Bld) [#/Vol] 0.83 10*3/uL 0.83-4.51 [facility] Lymphocytes/100 WBC Auto (Un sp spec)Ordered By: Zeny Wolff on 11-06-2024 Lymphocytes/100 WBC (Bld) 26.8 % 19-41 [facility] MCV (mean corpuscular volume ) determinationOrdered By: Zeny Wolff on 11-06-2024 MCV (RBC) [Entitic vol] 96.6 fL 81-99 [facility] Mean corpuscular hemoglobin (MCH) determinationOrdered By: Zeny Wolff on 11-06-2024 MCH (RBC) [Entitic mass] 30.9 pg 27.0-32.0 [facility] Mean corpuscular hemoglobin concentration (MCHC) determinationOrdered By: Zeny Wolff on 11-06-2024 MCHC (RBC) [Mass/Vol] 32.0 g/dL 32-36 [facility] Mean platelet volume determi nationOrdered By: Zeny Wolff on 11-06-2024 Platelet mean volume (Bld) [Entitic vol] 9.8 fL 6.2-12.0 [facility] Monocyte percentageOrdered B y: Zeny Wolff on 11-06-2024 Monocytes/100 WBC (Bld) 12.6 % High 0-10 [facility] Neutrophil percentageOrdered By: Zeny Wolff on 11-06-2024 Neutrophils/100 WBC (Bld) 58.0 % 47-70 [facility] Nucleated red blood cell per centageOrdered By: Zeny Wolff on 11-06-2024 Nucleated RBC/100 WBC (Bld) [Ratio] 0 % 0-5 [facility] Platelet countOrdered By: Jose Wolff on 11-06-2024 Platelets (Bld) [#/Vol] 101 10*3/uL Low 150-450 [facility] Potassium measurementOrdered By: Zeny Wolff on 11-06-2024 Potassium [Moles/Vol] 3.5 mmol/L 3.5-5.1 [facility] RBC Auto (Bld) [#/Vol]Ordere d By: Zeny Wolff on 11-06-2024 RBC (Bld) [#/Vol] 3.85 10*6/uL Low 4.2-5.4 [facility] Serum anion gap measurementO rdered By: Zeny Wolff on 11-06-2024 Anion gap [Moles/Vol] 6 mmol/L 5-15 [facility] Serum or plasma calcium cirilo urement (mass/volume)Ordered By: Zeny Wolff on 11-06-2024 Calcium [Mass/Vol] 8.9 mg/dL 8.5-10.1 [facility] Serum or plasma creatinine m easurement (mass/volume)Ordered By: Zeny Wolff on 11-06-2024 Creatinine [Mass/Vol] 0.78 mg/dL 0.55-1.02 [facility] Comment on above: The validity of the calculated GFR & GFRAA in patients over 70 years has not been determined. Clinical correlation is essential. Serum or plasma urea nitroge n measurement (mass/volume)Ordered By: Zeny Wolff on 11-06-2024 Urea nitrogen [Mass/Vol] 9 mg/dL 7-18 [facility] Sodium levelOrdered By: Julius Wolff on 11-06-2024 Sodium [Moles/Vol] 142 mmol/L 136-145 [facility] White blood cell (WBC) count Ordered By: Zeny Wolff on 11-06-2024 WBC (Bld) [#/Vol] 3.1 10*3/uL Low 4.4-11.0 [facility] UA DIP, URINE (POC)on 2024 BILIRUBIN UA (POCT) Negative Negative [facility] CLARITY UA (POCT) Clear [facility] COLOR UA (POCT) Yellow [facility] GLUCOSE UA (POCT) Negative Negative mg/dL [facility] Hemoglobin Ql (U) Trace-intact Abnormal Negative [facility] Interpretation and review of laboratory results Abnormal [facility] KETONE UA (POCT) Negative Negative mg/dL [facility] LEUKOCYTES UA (POCT) Moderate Abnormal Negative [facility] NITRITE UA (POCT) Negative Negative [facility] PH UA (POCT) 7 4.5 - 8.0 [facility] Protein Ql (U) >=300 Abnormal Negative mg/dL [facility] SPECIFIC GRAVITY UA (POCT) 1.02 1.005 - 1.030 [facility] UROBILINOGEN UA (POCT) 1 Ana l E.U./dL [facility] Location:[address], [place], [place], [id number] [place] [address] POINT OF CARE [facility] XR Chest PA and Lateralon IMPRESSION: No acute radiographic abnormality. Software Engineer Backend: IVAN Transcribe Date/Time: Nov 01 2024 12:49P Dictated by : Blessing VASQUEZ MD This examination was interpreted and the report reviewed and electronically signed by: Blessing VASQUEZ MD on Nov 01 2024 12:53PM [facility] DIVISION OF RADIOLOGY * * *Final Report* * * DATE OF EXAM: Nov 01 2024 12:40PM WOX [id number] - XR CHEST 2V FRONTAL/LAT / PROCEDURE REASON: Acute cough * * * * Physician Interpretation * * * * EXAMINATION: CHEST RADIOGRAPH (2 VIEW FRONTAL & LATERAL) CLINICAL HISTORY: Acute cough MQ: XC2_6 EXAM DATE/TIME: 11/01/2024 12:40 PM COMPARISON: 06/05/2022 RESULT: Lines, tubes, and devices: None. Lungs and pleura: No consolidation. No lung mass. No pleural effusion. No pneumothorax. Cardiomediastinal silhouette: Normal cardiomediastinal silhouette. Bones and soft tissues: Degenerative changes are present within the thoracic spine. DIVISION OF RADIOLOGY Provider, Keven Cisneros - 11/01/2024 * * *Final Report* * * DATE OF EXAM: Nov 01 2024 12:40PM WOX 5291 - XR CHEST 2V FRONTAL/LAT / PROCEDURE REASON: Acute cough * * * * Physician Interpretation * * * * EXAMINATION: CHEST RADIOGRAPH (2 VIEW FRONTAL & LATERAL) CLINICAL HISTORY: Acute cough MQ: XC2_6 EXAM DATE/TIME: 11/01/2024 12:40 PM COMPARISON: 06/05/2022 RESULT: Lines, tubes, and devices: None. Lungs and pleura: No consolidation. No lung mass. No pleural effusion. No pneumothorax. Cardiomediastinal silhouette: Normal cardiomediastinal silhouette. Bones and soft tissues: Degenerative changes are present within the thoracic spine. IMPRESSION IMPRESSION: No acute radiographic abnormality. Software Engineer Backend: IVAN Transcribe Date/Time: Nov 01 2024 12:49P Dictated by : Blessing VASQUEZ MD This examination was interpreted and the report reviewed and electronically signed by: Blessing VASQEUZ MD on Nov 01 2024 12:53PM EST [facility] Radiology Study observation (narrative) [facility] XR Chest PA and LateralOrder ed By: [facility] Provider on 11-01-2024 [facility] MR Brain WO and W contrast I Von 08-12-2024 IMPRESSION: Stable appearance of the brain since 10/17/2017. No evidence of an acute intracranial process or intracranial mass. Software Engineer Backend: IVAN Transcribe Date/Time: Aug 12 2024 1:27P Dictated by : CÉSAR TAVAREZ MD This examination was interpreted and the report reviewed and electronically signed by: CÉSAR TAVAREZ MD on Aug 12 2024 1:33PM [facility] DIVISION OF RADIOLOGY * * *Final Report* * * DATE OF EXAM: Aug 12 2024 1:10PM [facility] 0295 - MRI BRAIN WO/W IVCON / PROCEDURE REASON: Worsening headaches * * * * Physician Interpretation * * * * EXAMINATION: MRI BRAIN WO/W IVCON CLINICAL HISTORY: Chronic migraine headaches with recent progression of symptoms. TECHNIQUE: Routine brain MRI protocol without and with contrast including diffusion images. MQ: MRBWOW_2 Contrast: 20 mL Dotarem intravenous COMPARISON: 10/17/2017 RESULT: Acute Change: There is no evidence of an acute intracranial process. Hemorrhage: No evidence of prior parenchymal, subarachnoid or intraventricular hemorrhage on SWI. Mass Lesion/ Mass Effect: There is no evidence of an intracranial mass or extra-axial fluid collection. No abnormal parenchymal or leptomeningeal enhancement is noted otherwise following gadolinium administration. Chronic Change: Scattered small patchy foci of hyperintensity are again noted in the supratentorial white matter on FLAIR and T2 which are nonspecific but likely represent mild chronic microvascular ischemia in view of the patient's chronologic age. No significant interval change. Parenchyma: Again noted is mild generalized cortical volume loss and mild to moderate enlargement of the lateral and third ventricles suggesting mild central white matter volume loss. No significant interval change. The brain parenchyma is otherwise within normal limits of signal intensity and morphology. Ventricles: Mild to moderate enlargement of lateral and third ventricles commensurate with volume loss. No significant change in size or configuration. Skull Base: Hypothalamic and pituitary region are grossly normal. Craniocervical junction is normal. No significant marrow replacement process. Vasculature: Major intracranial arterial structures, and dural venous sinuses show typical flow void, suggesting patency by spin echo criteria. Other: Incidental note is made of a small polyp in the left maxillary antrum and mild mucosal thickening and a right posterior ethmoid air cell. The paranasal, mastoid air cells and middle ear cavities are otherwise clear. DIVISION OF RADIOLOGY Provider, [facility] - 08/12/2024 * * *Final Report* * * DATE OF EXAM: Aug 12 2024 1:10PM [facility] 0295 - MRI BRAIN WO/W IVCON / PROCEDURE REASON: Worsening headaches * * * * Physician Interpretation * * * * EXAMINATION: MRI BRAIN WO/W IVCON CLINICAL HISTORY: Chronic migraine headaches with recent progression of symptoms. TECHNIQUE: Routine brain MRI protocol without and with contrast including diffusion images. MQ: MRBWOW_2 Contrast: 20 mL Dotarem intravenous COMPARISON: 10/17/2017 RESULT: Acute Change: There is no evidence of an acute intracranial process. Hemorrhage: No evidence of prior parenchymal, subarachnoid or intraventricular hemorrhage on SWI. Mass Lesion/ Mass Effect: There is no evidence of an intracranial mass or extra-axial fluid collection. No abnormal parenchymal or leptomeningeal enhancement is noted otherwise following gadolinium administration. Chronic Change: Scattered small patchy foci of hyperintensity are again noted in the supratentorial white matter on FLAIR and T2 which are nonspecific but likely represent mild chronic microvascular ischemia in view of the patient's chronologic age. No significant interval change. Parenchyma: Again noted is mild generalized cortical volume loss and mild to moderate enlargement of the lateral and third ventricles suggesting mild central white matter volume loss. No significant interval change. The brain parenchyma is otherwise within normal limits of signal intensity and morphology. Ventricles: Mild to moderate enlargement of lateral and third ventricles commensurate with volume loss. No significant change in size or configuration. Skull Base: Hypothalamic and pituitary region are grossly normal. Craniocervical junction is normal. No significant marrow replacement process. Vasculature: Major intracranial arterial structures, and dural venous sinuses show typical flow void, suggesting patency by spin echo criteria. Other: Incidental note is made of a small polyp in the left maxillary antrum and mild mucosal thickening and a right posterior ethmoid air cell. The paranasal, mastoid air cells and middle ear cavities are otherwise clear. IMPRESSION IMPRESSION: Stable appearance of the brain since 10/17/2017. No evidence of an acute intracranial process or intracranial mass. Software Engineer Backend: [facility] Transcribe Date/Time: Aug 12 2024 1:27P Dictated by : CÉSAR TAVAREZ MD This examination was interpreted and the report reviewed and electronically signed by: CÉSAR TAVAREZ MD on Aug 12 2024 1:33PM EST [facility] Radiology Study observation (narrative) [facility] MR Brain WO and W contrast I VOrdered By: [facility] Provider on 08-12-2024 [facility] UA DIP, URINE (POC)on 2023 BILIRUBIN UA (POCT) Negative Negative [facility] CLARITY UA (POCT) Clear [facility] COLOR UA (POCT) Yellow [facility] GLUCOSE UA (POCT) Negative Negative mg/dL [facility] Hemoglobin Ql (U) Moderate Abnormal Negative [facility] Interpretation and review of laboratory results Abnormal [facility] KETONE UA (POCT) Negative Negative mg/dL [facility] LEUKOCYTES UA (POCT) Small Abnormal Negative [facility] NITRITE UA (POCT) Negative Negative [facility] PH UA (POCT) 7.0 4.5 - 8.0 [facility] Protein Ql (U) >=300 Abnormal Negative mg/dL [facility] SPECIFIC GRAVITY UA (POCT) 1.020 1.005 - 1.030 [facility] UROBILINOGEN UA (POCT) 0.2 Ana l E.U./dL [facility] Location:[facility], [address], [place], [address] [facility] POINT OF CARE [facility] 12 Lead EKGon 07-04-2024 12 Lead EKG [facility] Cardiovascular Services [address] [place] [address] 12 Lead EKG 07/04/24 0457 MR#: [id number] Acct: [id number] Name: LISA UP Rep #: [id number] : 1945 78 From: Pavel Red MD Attending Dr: Status: DEP ER Ordering Dr: Marcell Gutiérrez DO Date: 07/04/24 Location: ED Sex: F C Admitted: Test Reason : HTN Blood Pressure : / mmHG Vent. Rate : 072 BPM Atrial Rate : 072 BPM P-R Int : 092 ms QRS Dur : 112 ms QT Int : 422 ms P-R-T Axes : 068 006 041 degrees QTc Int : 462 ms Sinus rhythm with short [place] Left ventricular hypertrophy with repolarization abnormality ( R in aVL , Jacobo product ) Confirmed by Pavel Red ([id number]), managing editor DARIEN SALMERON ([id number]) on 07/05/2024 9:40:12 AM Referred By: TOAN Confirmed By:Pavel Red 07/05/24 0940 Date Pavel Red MD CC: Dr. Sylvia Lizama MD; Marcell Gutiérrez DO Signed [facility] Basic Metabolic Profile (BMP )on 07-04-2024 BUN/CRE 18.3 RATIO Normal 07-11 [facility] Comment on above: Order Comment: 'TROP ' Serial specimen #1, #2 or #3: 1 Performed By: #### L 100.0100, L501.4020, L500.2500 #### [facility] [address] [place], [address] CA,Total 9.9 mg/dL Normal 8.5-10.1 [facility] Comment on above: Order Comment: 'TROP ' Serial specimen #1, #2 or #3: 1 Performed By: #### L 100.0100, L501.4020, L500.2500 #### [facility] [address] [place], [address] Chloride [Moles/Vol] 107 mmol/L Normal 98-107 [facility] Comment on above: Order Comment: 'TROP ' Serial specimen #1, #2 or #3: 1 Performed By: #### L 100.0100, L501.4020, L500.2500 #### [facility] [address] [place], [address] CO2 [Moles/Vol] 28.0 mmol/L Normal 21.0-32.0 [facility] Comment on above: Order Comment: 'TROP ' Serial specimen #1, #2 or #3: 1 Performed By: #### L 100.0100, L501.4020, L500.2500 #### [facility] [address] [place], [address] Creatinine [Mass/Vol] 0.82 mg/dL Normal 0.55-1.02 [facility] Comment on above: Order Comment: 'TROP ' Serial specimen #1, #2 or #3: 1 Result Comment: The validity of the calculated GFR GFRAA in patients over 70 years has not been determined. Clinical correlation is essential. Performed By: #### L 100.0100, L501.4020, L500.2500 #### [facility] [address] [place], [address] ECRCL 62.80 ml/min Normal [facility] Comment on above: Order Comment: 'TROP ' Serial specimen #1, #2 or #3: 1 Performed By: #### L 100.0100, L501.4020, L500.2500 #### [facility] [address] [place], [address] EST GFR - AA 86 mL/min Normal >60 [facility] Comment on above: Order Comment: 'TROP ' Serial specimen #1, #2 or #3: 1 Result Comment: Afri can Angolan GFR Calc Performed By: #### L 100.0100, L501.4020, L500.2500 #### [facility] [address] [place], [address] GAP 6 Normal 5-15 [facility] Comment on above: Order Comment: 'TROP ' Serial specimen #1, #2 or #3: 1 Performed By: #### L 100.0100, L501.4020, L500.2500 #### [facility] [address] [place], [address] GFR/1.73 sq M.predicted among non-blacks MDRD (S/P/Bld) [Vol rate/Area] 71 mL/min/{1.73_m2} Normal >60 [facility] Comment on above: Order Comment: 'TROP ' Serial specimen #1, #2 or #3: 1 Result Comment: Non- GFR Calc Performed By: #### L 100.0100, L501.4020, L500.2500 #### [facility] [address] [place], [address] Glucose [Mass/Vol] 119 mg/dL High 74-106 [facility] Comment on above: Order Comment: 'TROP ' Serial specimen #1, #2 or #3: 1 Result Comment: Fast ing Glucose result from 100 to 125 mg/dL suggests IMPAIRED HOMEOSTASIS per A.D.A. criteria. Performed By: #### L 100.0100, L501.4020, L500.2500 #### [facility] [address] [place], [address] Potassium [Moles/Vol] 3.6 mmol/L Normal 3.5-5.1 [facility] Comment on above: Order Comment: 'TROP ' Serial specimen #1, #2 or #3: 1 Performed By: #### L 100.0100, L501.4020, L500.2500 #### [facility] [address] [place], [address] Sodium [Moles/Vol] 141 mmol/L Normal 136-145 [facility] Comment on above: Order Comment: 'TROP ' Serial specimen #1, #2 or #3: 1 Performed By: #### L 100.0100, L501.4020, L500.2500 #### [facility] [address] [place], [address] Urea nitrogen [Mass/Vol] 15 mg/dL Normal 7-18 [facility] Comment on above: Order Comment: 'TROP ' Serial specimen #1, #2 or #3: 1 Performed By: #### L 100.0100, L501.4020, L500.2500 #### [facility] [address] [place], [address] Brain/Head without Contrast n 07-04-2024 Brain/Head without Contrast [facility] Imaging Services [address] [place] [address] Brain/Head without Contrast MR#: [id number] Acct: [id number] Name: LISA UP Agatha Rep #: [id number] : 1945 F 78 From: Pavel Parks PCP: Dr. Sylvia Lizama MD Status: [facility] Study: Brain/Head without Contrast Date of Exam: 06/22 12/13 Exam# [id number] Ordering Dr: Marcell Gutiérrez DO [id number] EXAM: CT HEAD WITHOUT INTRAVENOUS CONTRAST CLINICAL INDICATION: headache TECHNIQUE: Multiple axial images were obtained of the head without intravenous contrast. This CT exam was performed using one or more of the following dose reduction techniques: automated exposure control, adjustment of the mA and/or kV according to patient size, and/or use of iterative reconstruction technique. RADIATION DOSE: CTDIvol = 44.99 mGy, DLP = 812.98 mGy-cm COMPARISON: 05/08/2024. FINDINGS: BRAIN AND EXTRA-AXIAL SPACES: Mild generalized atrophy. Mild low density bilaterally in the deep white matter. No intra- or extra-axial hemorrhage. No evidence of acute infarct. No intracranial mass or mass effect. There is preservation of the goff/white matter interface. Posterior fossa structures are unremarkable. No hydrocephalus. Basal cisterns are patent. BONES/JOINTS: Unremarkable. No discrete lytic or blastic abnormalities. SINUSES: Mucosal thickening left maxillary sinus. MASTOID AIR CELLS: Unremarkable. Clear. ORBITS: Visualized globes, extraocular muscles, optic nerves and retrobulbar fat appear unremarkable. CT/Brain/Head without Contrast IMPRESSION: 1. Mucosal thickening left maxillary sinus. 2. Mild generalized atrophy. Mild low density bilaterally in the deep white matter. This likely represents chronic small vessel ischemic changes in the deep white matter. Electronically Signed: Pavel Ruelas MD at 5:43 EDT , CC: Dr. Sylvia Lizama MD; Marcell Gutiérrez DO Software Engineer Backend: Signed [facility] CBC W/Diff, Automatedon 06-22 Absolute Lymph 1.43 X10 3/uL Normal 0.83-4.51 [facility] Comment on above: Performed By: #### L 100.0100, L501.4020, L500.2500 #### [facility] [address] [place], [address] Absolute Neut 7.3 X10 3/uL Normal 2.0-7.7 [facility] Comment on above: Performed By: #### L 100.0100, L501.4020, L500.2500 #### [facility] [address] [place], [address] Basophils/100 WBC (Bld) 0.2 % Normal 0-1 [facility] Comment on above: Performed By: #### L 100.0100, L501.4020, L500.2500 #### [facility] [address] [place], [address] Eosinophils/100 WBC (Bld) 0.1 % Normal 0-5 [facility] Comment on above: Performed By: #### L 100.0100, L501.4020, L500.2500 #### [facility] [address] [place], [address] Erythrocyte distribution width (RBC) [Ratio] 13.1 % Normal 11.6-14.6 [facility] Comment on above: Performed By: #### L 100.0100, L501.4020, L500.2500 #### [facility] [address] [place], [address] Hematocrit (Bld) [Volume fraction] 40.0 % Normal 37-47 [facility] Comment on above: Performed By: #### L 100.0100, L501.4020, L500.2500 #### [facility] [address] [place], [address] Hemoglobin (Bld) [Mass/Vol] 12.6 g/dL Normal 12.0-15.0 [facility] Comment on above: Performed By: #### L 100.0100, L501.4020, L500.2500 #### [facility] [address] [place], [address] IG% 0.700 Normal 0.0-0.9 [facility] Comment on above: Result Comment: IG% - Immature Granulocytes (promyelocytes, myelocytes and metamyelocytes) > 1% indicates that a LEFT SHIFT is Present. Performed By: #### L 100.0100, L501.4020, L500.2500 #### [facility] [address] [place], [address] Lymphocytes/100 WBC (Bld) 15.1 % Low 19-41 [facility] Comment on above: Performed By: #### L 100.0100, L501.4020, L500.2500 #### [facility] [address] [place], [address] MCH (RBC) [Entitic mass] 30.5 pg Normal 27.0-32.0 [facility] Comment on above: Performed By: #### L 100.0100, L501.4020, L500.2500 #### [facility] [address] [place], [address] MCHC (RBC) [Mass/Vol] 31.5 g/dL Low 32-36 [facility] Comment on above: Performed By: #### L 100.0100, L501.4020, L500.2500 #### [facility] [address] [place], [address] MCV (RBC) [Entitic vol] 96.9 fL Normal 81-99 [facility] Comment on above: Performed By: #### L 100.0100, L501.4020, L500.2500 #### [facility] [address] [place], [address] Monocytes/100 WBC (Bld) 7.2 % Normal 0-10 [facility] Comment on above: Performed By: #### L 100.0100, L501.4020, L500.2500 #### [facility] [address] [place], [address] Neutrophils/100 WBC (Bld) 76.7 % High 47-70 [facility] Comment on above: Performed By: #### L 100.0100, L501.4020, L500.2500 #### [facility] [address] [place], [address] Nucleated RBC (Bld) [#/Vol] 0 10*3/uL Normal 0-5 [facility] Comment on above: Performed By: #### L 100.0100, L501.4020, L500.2500 #### [facility] [address] [place], [address] Platelet mean volume (Bld) [Entitic vol] 10.0 fL Normal 6.2-12.0 [facility] Comment on above: Performed By: #### L 100.0100, L501.4020, L500.2500 #### [facility] [address] [place], [address] Platelets (Bld) [#/Vol] 149 10*3/uL Low 150-450 [facility] Comment on above: Performed By: #### L 100.0100, L501.4020, L500.2500 #### [facility] [address] [place], [address] RBC (Bld) [#/Vol] 4.13 10*6/uL Low 4.2-5.4 [facility] Comment on above: Performed By: #### L 100.0100, L501.4020, L500.2500 #### [facility] [address] [place], [address] RDW SD 46.4 fl High 35.1-43.9 [facility] Comment on above: Performed By: #### L 100.0100, L501.4020, L500.2500 #### [facility] [address] [place], [address] WBC (Bld) [#/Vol] 9.5 10*3/uL Normal 4.4-11.0 [facility] Comment on above: Performed By: #### L 100.0100, L501.4020, L500.2500 #### [facility] [address] [place], [address] Chest PA and Lateralon 07-04 Chest PA and Lateral [facility] Imaging Services [address] [place] [address] Chest PA and Lateral MR#: [id number] Acct: [id number] Name: LISA UP Rep #: [id number] : 1945 F 78 From: Pavel Parks PCP: Dr. Sylvia Lizama MD Status: REG ER Study: Chest PA and Lateral Date of Exam: 07/04/24 Exam# [id number] Ordering Dr: Marcell Gutiérrez DO [id number] EXAM: XR CHEST, 2 VIEWS CLINICAL INDICATION: cough TECHNIQUE: Frontal and lateral views of the chest. COMPARISON: 05/08/2024. FINDINGS: LUNGS AND PLEURAL SPACES: Unremarkable. No consolidation or edema. No pneumothorax. No effusion. HEART: Unremarkable. Cardiac silhouette not enlarged. MEDIASTINUM: Central airways and mediastinal contour are unremarkable. BONES/JOINTS: Unremarkable. No acute fracture. SOFT TISSUES: Unremarkable. RAD/Chest PA and Lateral IMPRESSION: No acute cardiopulmonary abnormality. Electronically Signed: Pavel Ruelas MD at 5:17 EDT , CC: Dr. Sylvia Lizama MD; Marcell Gutiérrez DO Software Engineer Backend: Signed [facility] Emergency Department Summary on 07-04-2024 Emergency Department Summary [facility] Medical Records Department [address] [place] [address] Emergency Department Summary 07/04/24 MR#: [id number] Acct: [id number] Name: LISA UP Rep #: [id number] : 1945 78 From: Marcell Gutiérrez DO PCP: Dr. Sylvia Lizama MD Status:DEP ER Location: ED HPI History of Present Illness Chief Complaint: Hypertension Informant: patient and family Narrative Narrative: Patient is a 78-year-old female with past medical history of restless leg syndrome sleep apnea hypertension and GERD. She states that she has been taking her blood pressure throughout the day on Friday and it has been elevated despite taking her blood pressure medication. She states she took an extra dose of her blood pressure medication at her evening dose secondary to the hypertension. However she has not been able to sleep throughout the night and has been checking her blood pressure and has remained high and therefore she comes in for evaluation Patient denies any excessive stimulant use or illicit drug use. She does state that she was recently placed on prednisone secondary to sinus congestion and pressure and took her first dose on Friday [facility] Medical History DVT (deep venous thrombosis) Post-menopausal Dyspnea History of stress test Ovarian tumor Anticoagulant long-term use Non Hodgkin's lymphoma Dehiscence of surgical wound GERD (gastroesophageal reflux disease) Restless leg syndrome Peripheral neuropathy Osteoarthritis Hypertension Morbid obesity with BMI of 40.0-44.9, adult Home Medications ???Medication ???Instructions ???Recorded ???Last Taken ???Type potassium chloride 10 mEq 10 meq PO BID supplement 06/07/18 03/24/24 History tablet,extended release(part/cryst) multivitamin with folic acid 400 1 tab PO DAILY vitamin 08/01/18 03/24/24 History mcg tablet (Thera) apixaban 5 mg tablet 5 mg PO BID blood thinner 08/13/20 03/24/24 History levothyroxine 75 mcg tablet 75 mcg PO DAILY thyroid 07/30/22 03/24/24 History carvedilol 25 mg tablet 25 mg PO BID blood pressure 03/24/24 03/24/24 History gabapentin 400 mg capsule 400 mg PO TID nerve pain 03/24/24 03/24/24 History hydralazine 50 mg tablet 50 mg PO BID blood pressure 03/24/24 03/24/24 History paroxetine HCl 10 mg tablet 10 mg PO DAILY mental health 03/24/24 03/24/24 History clonidine HCl 0.1 mg tablet 0.1 mg PO BID 30 days #60 tabs 03/26/24 Unknown Rx amoxicillin 875 mg-potassium 1 tab PO BID 07/04/24 Unknown History clavulanate 125 mg tablet losartan 100 mg tablet 100 mg PO DAILY 07/04/24 Unknown History meclizine 25 mg tablet 25 mg PO TID 07/04/24 Unknown History omeprazole 20 mg capsule,delayed 20 mg PO DAILY 07/04/24 Unknown History release prednisone 10 mg tablet mg PO 07/04/24 Unknown History Allergy/AdvReac Type Severity Reaction Status Date / Time COVID-19 vaccine, mRNA, Allergy Anaphylaxis Verified 07/04/24 04:13 [id number], erythromycin base Allergy Rash Verified 07/04/24 04:13 (Erythromycin Base) lisinopril Allergy Swelling Verified 07/04/24 04:13 venom-wasp (wasp) Allergy NEEDS Verified 07/04/24 04:13 FOLLOW-UP amlodipine AdvReac Swelling Verified 07/04/24 04:13 latex AdvReac Swelling Verified 07/04/24 04:13 Family History Mother Hypertension Surgical History S/P laparoscopic cholecystectomy S/P hysterectomy H/O laminectomy History of partial nephrectomy History of tonsillectomy History of total knee arthroplasty History of total abdominal hysterectomy Social History Smoking Status: Never smoker ROS ROS ED Constitutional Constitutional ED: Denies chills or fever(s) ENT ENT ED: Denies sore throat Cardiovascular Cardiovascular: Denies chest pain Respiratory/Chest Respiratory/Chest: Denies cough or dyspnea Gastrointestinal Gastrointestinal: Denies abdominal pain, diarrhea, nausea or vomiting Genitourinary Genitourinary ED: Denies dysuria Musculoskeletal Musculoskeletal: Denies myalgias Integumentary Denies rash Neurologic Neurologic: Denies headache(s) Hematologic/Lymphatic Hematologic/Lymphatic: Denies easy bleeding or easy bruising EXAM Physical Exam Const Vital Signs: 07/04/24 04:07 07/04/24 05:11 07/04/24 05:49 Temperature 97.1 F L Temperature Source Oral Pulse Rate 71 74 68 Respiratory Rate 16 14 14 Blood Pressure 235/92 H 194/88 H 161/79 H Blood Pressure Mean 139 123 106 Pulse Ox 98 98 98 Oxygen Delivery Method Room Air Room Air Room Air 07/04/24 06:20 Temperature 97.9 F Temperature Source Pulse Rate 68 Re (more content not included)... Normal [facility] L501.4020on 07-04-2024 TROPONIN-I HS 6 pg/mL Normal 3.0-54.0 [facility] Comment on above: Order Comment: 'TROP ' Serial specimen #1, #2 or #3: 1 Result Comment: Katty gardner Note: New Test Units and Gender Specific Reference Ranges. For more information see Policy Stat Procedure [place] High Sensitivity Troponin (TNIH) and attachments. Performed By: #### L 100.0100, L501.4020, L500.2500 #### [facility] [address] [place], [address] M100.678on 07-04-2024 M100.678 Pending SARS-CoV-2 (COVID 19) Negative INFLUENZA A Negative INFLUENZA B Negative RSV PCR Negative Normal [facility] Comment on above: Performed By: #### M 100.678 ####[facility] [address] [place], [address] UA DIP, URINE (POC)on 2023 BILIRUBIN UA (POCT) Negative Negative [facility] CLARITY UA (POCT) Clear [facility] COLOR UA (POCT) Yellow [facility] GLUCOSE UA (POCT) Negative Negative mg/dL [facility] Hemoglobin Ql (U) Large Abnormal Negative [facility] Interpretation and review of laboratory results Abnormal [facility] KETONE UA (POCT) Negative Negative mg/dL [facility] LEUKOCYTES UA (POCT) Small Abnormal Negative [facility] NITRITE UA (POCT) Negative Negative [facility] PH UA (POCT) 6.5 4.5 - 8.0 [facility] Protein Ql (U) >=300 Abnormal Negative mg/dL [facility] SPECIFIC GRAVITY UA (POCT) 1.025 1.005 - 1.030 [facility] UROBILINOGEN UA (POCT) 0.2 Ana l E.U./dL [facility] Location:[address], [place], [address] [facility] POINT OF CARE [facility] 12 Lead EKGon 05-08-2024 12 Lead EKG [facility] Cardiovascular Services [address] [place] [address] 12 Lead EKG 05/08/24 1502 MR#: [id number] Acct: [id number] Name: LISA UP Rep #: [id number] : 1945 78 From: Shala Louis MD Attending Dr: Dr. Evans Jones MD Status: DEP E R Ordering Dr: Evans Jones MD Date: 05/08/24 Location: ED Sex: F C Admitted: Test Reason : SYCOPE Blood Pressure : / mmHG Vent. Rate : 060 BPM Atrial Rate : 060 BPM P-R Int : 166 ms QRS Dur : 086 ms QT Int : 450 ms P-R-T Axes : 039 009 056 degrees QTc Int : 450 ms Normal sinus rhythm Normal ECG Confirmed by DREW ROMERO, STEPHEN ([id number]), managing editor TIMA WICK ([id number]) on 05/14/2024 6:15:23 AM Referred By: Confirmed By:VICTORINO LOUIS MD 05/14/24 0615 Date Shala Louis MD CC: Dr. Evans Jones MD; Dr. Sylvia Lizama MD Signed Normal [facility] Basic Metabolic Profile (BMP )on 05-08-2024 BUN/CRE 11.3 RATIO Normal 10-20 [facility] Comment on above: Order Comment: 'TROP ' Serial specimen #1, #2 or #3: 1 Performed By: #### L 100.0100, L501.4020, L500.2500 #### [facility] [address] [place], [address] CA,Total 8.8 mg/dL Normal 8.5-10.1 [facility] Comment on above: Order Comment: 'TROP ' Serial specimen #1, #2 or #3: 1 Performed By: #### L 100.0100, L501.4020, L500.2500 #### [facility] [address] [place], [address] Chloride [Moles/Vol] 106 mmol/L Normal 98-107 [facility] Comment on above: Order Comment: 'TROP ' Serial specimen #1, #2 or #3: 1 Performed By: #### L 100.0100, L501.4020, L500.2500 #### [facility] [address] [place], [address] CO2 [Moles/Vol] 29.0 mmol/L Normal 21.0-32.0 [facility] Comment on above: Order Comment: 'TROP ' Serial specimen #1, #2 or #3: 1 Performed By: #### L 100.0100, L501.4020, L500.2500 #### [facility] [address] [place], [address] Creatinine [Mass/Vol] 1.06 mg/dL High 0.55-1.02 [facility] Comment on above: Order Comment: 'TROP ' Serial specimen #1, #2 or #3: 1 Result Comment: The validity of the calculated GFR GFRAA in patients over 70 years has not been determined. Clinical correlation is essential. Performed By: #### L 100.0100, L501.4020, L500.2500 #### [facility] [address] [place], [address] ECRCL 49.01 ml/min Normal [facility] Comment on above: Order Comment: 'TROP ' Serial specimen #1, #2 or #3: 1 Performed By: #### L 100.0100, L501.4020, L500.2500 #### [facility] [address] [place], [address] EST GFR - AA 64 mL/min Normal >60 [facility] Comment on above: Order Comment: 'TROP ' Serial specimen #1, #2 or #3: 1 Result Comment: Afri can Angolan GFR Calc Performed By: #### L 100.0100, L501.4020, L500.2500 #### [facility] [address] [place], [address] GAP 4 Low 5-15 [facility] Comment on above: Order Comment: 'TROP ' Serial specimen #1, #2 or #3: 1 Performed By: #### L 100.0100, L501.4020, L500.2500 #### [facility] [address] [place], [address] GFR/1.73 sq M.predicted among non-blacks MDRD (S/P/Bld) [Vol rate/Area] 53 mL/min/{1.73_m2} Low >60 [facility] Comment on above: Order Comment: 'TROP ' Serial specimen #1, #2 or #3: 1 Result Comment: Non- GFR Calc Performed By: #### L 100.0100, L501.4020, L500.2500 #### [facility] [address] [place], [address] Glucose [Mass/Vol] 122 mg/dL High 74-106 [facility] Comment on above: Order Comment: 'TROP ' Serial specimen #1, #2 or #3: 1 Result Comment: Fast ing Glucose result from 100 to 125 mg/dL suggests IMPAIRED HOMEOSTASIS per A.D.A. criteria. Performed By: #### L 100.0100, L501.4020, L500.2500 #### [facility] [address] [place], [address] Potassium [Moles/Vol] 3.8 mmol/L Normal 3.5-5.1 [facility] Comment on above: Order Comment: 'TROP ' Serial specimen #1, #2 or #3: 1 Performed By: #### L 100.0100, L501.4020, L500.2500 #### [facility] [address] [place], [address] Sodium [Moles/Vol] 139 mmol/L Normal 136-145 [facility] Comment on above: Order Comment: 'TROP ' Serial specimen #1, #2 or #3: 1 Performed By: #### L 100.0100, L501.4020, L500.2500 #### [facility] [address] [place], [address] Urea nitrogen [Mass/Vol] 12 mg/dL Normal 7-18 [facility] Comment on above: Order Comment: 'TROP ' Serial specimen #1, #2 or #3: 1 Performed By: #### L 100.0100, L501.4020, L500.2500 #### [facility] [address] [place], [address] Brain/Head without Contrasto n 05-08-2024 Brain/Head without Contrast [facility] Imaging Services [address] [place] [address] Brain/Head without Contrast MR#: [id number] Acct: [id number] Name: LISA UP Rep #: [id number] : 1945 F 78 From: Rosales Peralta MD PCP: Dr. Sylvia Lizama MD Status: [facility] ER Study: Brain/Head without Contrast Date of Exam: 04/22 04/14 Exam# [id number] Ordering Dr: Evans Jones MD [id number] STUDY: CT BRAIN WITHOUT CONTRAST REASON FOR EXAM: Female, 78 years old. Head trauma on thinner RADIATION DOSAGE (If Supplied By Facility): CTDIvol = ( 44.99 ) mGy, DLP = ( 829.85 ) mGycm TECHNIQUE: Transaxial CT imaging of the brain was performed without administration of intravenous contrast material. Individualized dose optimization techniques were used for this CT. COMPARISON: March 24, 2024 FINDINGS: Normal soft tissue structures. Normal calvarium. There is mild cerebral atrophy with widening of the extra-axial spaces and ventricular dilatation. There are areas of decreased attenuation within the white matter tracts of the supratentorial brain, consistent with microvascular disease changes. Normal basal ganglia and thalami. Normal brainstem. Normal cerebellum. There is no intracranial hemorrhage. There are no findings of an acute ischemic infarction. Normal visualized paranasal sinuses. CT/Brain/Head without Contrast IMPRESSION: Chronic involutional changes of the brain. Electronically Signed: Rosales Peralta MD at 15:48 EDT Reading Location ID and State: [address] [place] [address] , Service support , CC: Dr. Evans Jones MD; Dr. Sylvia Lizama MD Software Engineer Backend: Signed Normal [facility] CBC W/Diff, Automatedon 04-22 Absolute Lymph 1.09 X10 3/uL Normal 0.83-4.51 [facility] Comment on above: Performed By: #### L 100.0100, L501.4020, L500.2500 #### [facility] [address] [place], [address] Absolute Neut 5.2 X10 3/uL Normal 2.0-7.7 [facility] Comment on above: Performed By: #### L 100.0100, L501.4020, L500.2500 #### [facility] [address] [place], [address] Basophils/100 WBC (Bld) 0.1 % Normal 0-1 [facility] Comment on above: Performed By: #### L 100.0100, L501.4020, L500.2500 #### [facility] [address] [place], [address] Eosinophils/100 WBC (Bld) 2.2 % Normal 0-5 [facility] Comment on above: Performed By: #### L 100.0100, L501.4020, L500.2500 #### [facility] [address] [place], [address] Erythrocyte distribution width (RBC) [Ratio] 12.8 % Normal 11.6-14.6 [facility] Comment on above: Performed By: #### L 100.0100, L501.4020, L500.2500 #### [facility] [address] [place], [address] Hematocrit (Bld) [Volume fraction] 39.7 % Normal 37-47 [facility] Comment on above: Performed By: #### L 100.0100, L501.4020, L500.2500 #### [facility] [address] [place], [address] Hemoglobin (Bld) [Mass/Vol] 12.8 g/dL Normal 12.0-15.0 [facility] Comment on above: Performed By: #### L 100.0100, L501.4020, L500.2500 #### [facility] [address] [place], [address] IG% 0.300 Normal 0.0-0.9 [facility] Comment on above: Result Comment: IG% - Immature Granulocytes (promyelocytes, myelocytes and metamyelocytes) > 1% indicates that a LEFT SHIFT is Present. Performed By: #### L 100.0100, L501.4020, L500.2500 #### [facility] [address] [place], [address] Lymphocytes/100 WBC (Bld) 15.7 % Low 19-41 [facility] Comment on above: Performed By: #### L 100.0100, L501.4020, L500.2500 #### [facility] [address] [place], [address] MCH (RBC) [Entitic mass] 31.3 pg Normal 27.0-32.0 [facility] Comment on above: Performed By: #### L 100.0100, L501.4020, L500.2500 #### [facility] [address] [place], [address] MCHC (RBC) [Mass/Vol] 32.2 g/dL Normal 32-36 [facility] Comment on above: Performed By: #### L 100.0100, L501.4020, L500.2500 #### [facility] [address] [place], [address] MCV (RBC) [Entitic vol] 97.1 fL Normal 81-99 [facility] Comment on above: Performed By: #### L 100.0100, L501.4020, L500.2500 #### [facility] [address] [place], [address] Monocytes/100 WBC (Bld) 7.3 % Normal 0-10 [facility] Comment on above: Performed By: #### L 100.0100, L501.4020, L500.2500 #### [facility] [address] [place], [address] Neutrophils/100 WBC (Bld) 74.4 % High 47-70 [facility] Comment on above: Performed By: #### L 100.0100, L501.4020, L500.2500 #### [facility] [address] [place], [address] Nucleated RBC (Bld) [#/Vol] 0 10*3/uL Normal 0-5 [facility] Comment on above: Performed By: #### L 100.0100, L501.4020, L500.2500 #### [facility] [address] [place], [address] Platelet mean volume (Bld) [Entitic vol] 10.7 fL Normal 6.2-12.0 [facility] Comment on above: Performed By: #### L 100.0100, L501.4020, L500.2500 #### [facility] [address] [place], [address] Platelets (Bld) [#/Vol] 133 10*3/uL Low 150-450 [facility] Comment on above: Performed By: #### L 100.0100, L501.4020, L500.2500 #### [facility] [address] [place], [address] RBC (Bld) [#/Vol] 4.09 10*6/uL Low 4.2-5.4 [facility] Comment on above: Performed By: #### L 100.0100, L501.4020, L500.2500 #### [facility] [address] [place], [address] RDW SD 45.9 fl High 35.1-43.9 [facility] Comment on above: Performed By: #### L 100.0100, L501.4020, L500.2500 #### [facility] [address] [place], [address] WBC (Bld) [#/Vol] 6.9 10*3/uL Normal 4.4-11.0 [facility] Comment on above: Performed By: #### L 100.0100, L501.4020, L500.2500 #### [facility] [address] [place], [address] Chest 1 View (Portable)on Chest 1 View (Portable) [facility] Imaging Services [address] [place] [address] Chest 1 View (Portable) MR#: [id number] Acct: [id number] Name: LISA UP Rep #: [id number] : 1945 F 78 From: Rosales Peralta MD PCP: Dr. Sylvia Lizama MD Status: [facility] ER Study: Chest 1 View (Portable) Date of Exam: 05/08/24 Exam# [id number] Ordering Dr: Evans Jones MD [id number] STUDY: X-RAY CHEST REASON FOR EXAM: Female, 78 years old. Chest pain TECHNIQUE: Single AP portable view of the chest. COMPARISON: July 30, 2022 FINDINGS: There are monitoring devices. The lungs are clear and expanded. There is stable right midlung granuloma. There is no demonstrated pleural abnormality. Normal size heart. Normal mediastinum and favian. Normal visualized pulmonary arteries. There is atherosclerotic calcification of the aortic arch. There is demineralization of the osseous structures. Normal visualized ribs, clavicles, and shoulders. There is no demonstrated abnormality of the visualized soft tissue structures of the upper abdomen. RAD/Chest 1 View (Portable) IMPRESSION: Degenerative changes, as described above. No demonstrated acute cardiopulmonary process. Electronically Signed: Rosales Peralta MD at 15:56 EDT , CC: Dr. Evans Jones MD; Dr. Sylvia Lizama MD Software Engineer Backend: Signed Normal [facility] Emergency Department Summary on 05-08-2024 Emergency Department Summary [facility] Medical Records Department [address] [place] [address] Emergency Department Summary 05/08/24 MR#: [id number] Acct: [id number] Name: LISA UP Rep #: [id number] : 1945 78 From: Evans Jones MD PCP: Dr. Sylvia Lizama MD Status:DEP ER Location: ED ADDENDUM by Dr. Evans Jones MD on 05/08/24 at 2208 Urinalysis showed 5-10 white cells. 1+ bacteria. No nitrates. No significant symptoms. That will not be treated. 05/08/24 2208 Cosigner Signature (if applicable): cc: Dr. Sylvia Lizama MD * Signed HPI History of Present Illness Chief Complaint: Syncope Informant: patient and family Onset/Context/Timing Onset: Today Context: Sudden Onset Current Severity: Mild Maximum Severity: Mild Narrative Narrative: 78-year-old female with history 900 lymphoma, hypertension and on the blood thinner Eliquis. Was admitted to the hospital about a month ago for a fungal infection in her intestines. States she has had chronic dizziness for months. She uses a walker at home. She lives alone. Today she called her daughter said she had fallen did not know if she lost consciousness. Since she was going into her room and went down. Did hit her left forehead. And her knees. Daughter states she has been sleeping more recently. No fever or vomiting. No dysuria. Denies any severe headaches. Prior similar symptoms: Yes Recent Illness/Hospitalizatio n: Yes PFSH [facility] Medical History DVT (deep venous thrombosis) Post-menopausal Dyspnea History of stress test Ovarian tumor Anticoagulant long-term use Non Hodgkin's lymphoma Dehiscence of surgical wound GERD (gastroesophageal reflux disease) Restless leg syndrome Peripheral neuropathy Osteoarthritis Hypertension Morbid obesity with BMI of 40.0-44.9, adult Home Medications ???Medication ???Instructions ???Recorded ???Last Taken ???Type potassium chloride 10 mEq 10 meq PO BID supplement 06/07/18 03/24/24 History tablet,extended release(part/cryst) multivitamin with folic acid 400 1 tab PO DAILY vitamin 08/01/18 03/24/24 History mcg tablet (Thera) apixaban 5 mg tablet 5 mg PO BID blood thinner 08/13/20 03/24/24 History levothyroxine 75 mcg tablet 75 mcg PO DAILY thyroid 07/30/22 03/24/24 History biotin 1 tab PO DAILY supplement 03/24/24 Unknown History carvedilol 25 mg tablet 25 mg PO BID blood pressure 03/24/24 03/24/24 History gabapentin 400 mg capsule 400 mg PO TID nerve pain 03/24/24 03/24/24 History hydralazine 50 mg tablet 50 mg PO BID blood pressure 03/24/24 03/24/24 History paroxetine HCl 10 mg tablet 10 mg PO DAILY mental health 03/24/24 03/24/24 History clonidine HCl 0.1 mg tablet 0.1 mg PO BID 30 days #60 tabs 03/26/24 Unknown Rx Allergy/AdvReac Type Severity Reaction Status Date / Time COVID-19 vaccine, mRNA, Allergy Anaphylaxis Verified 03/24/24 09:30 [id number], erythromycin base Allergy Rash Verified 03/24/24 09:30 (Erythromycin Base) lisinopril Allergy Swelling Verified 03/24/24 09:30 venom-wasp (wasp) Allergy NEEDS Verified 03/24/24 09:30 FOLLOW-UP amlodipine AdvReac Swelling Verified 03/24/24 09:30 latex AdvReac Swelling Verified 03/24/24 09:30 Family History Mother Hypertension Surgical History S/P laparoscopic cholecystectomy S/P hysterectomy H/O laminectomy History of partial nephrectomy History of tonsillectomy History of total knee arthroplasty History of total abdominal hysterectomy Social History Smoking Status: Never smoker ROS ROS ED ROS Narrative Lightheadedness. No recent vomiting, fever nor shortness of breath. Constitutional Constitutional ED: Denies chills or fever(s) Eyes Eyes: Denies blurry vision ENT ENT ED: Denies ear pain Respiratory/Chest Respiratory/Chest: Denies cough or dyspnea Gastrointestinal Gastrointestinal: Denies abdominal pain, nausea or vomiting Genitourinary Genitourinary ED: Denies dysuria or hematuria Musculoskeletal Musculoskeletal: Denies arthralgias Integumentary Denies abscess Neurologic Neurologic: Denies headache(s) Psychiatric Psychiatric: Denies anxiety Endocrine Endocrinology: Denies cold intolerance Hematologic/Lymphatic Hematologic/Lymphatic: Reports none Allergic/Immunologic Allergic/Immunologic ED: Denies mouth swelling, tongue swelling or urticaria EXAM Physical Exam Narrative Exam Narrative: 78-year-old female sitting upright in bed. Vital signs are stable afebrile. Pulse ox 94% on room air no hypoxia. H EENT exam pupils round react light. Dry mucous membranes. She is small contusion left forehead. No sig (more content not included)... Normal [facility] L501.4020on 05-08-2024 TROPONIN-I HS 7 pg/mL Normal 3.0-54.0 [facility] Comment on above: Order Comment: 'TROP ' Serial specimen #1, #2 or #3: 1 Result Comment: Katty gardner Note: New Test Units and Gender Specific Reference Ranges. For more information see Policy Stat Procedure [place] High Sensitivity Troponin (TNIH) and attachments. Performed By: #### L 100.0100, L501.4020, L500.2500 #### [facility] [address] [place], [address] Urinalysis, Completeon 05-08 BACTERIA 1+ /hpf Normal None Seen [facility] Comment on above: Order Comment: 'TROP ' Serial specimen #1, #2 or #3: 1 Performed By: #### L 100.0100, L501.4020, L500.2500 #### [facility] [address] [place], [address] WBC 5-10 SEEN Normal 0-5 [facility] Comment on above: Order Comment: 'TROP ' Serial specimen #1, #2 or #3: 1 Performed By: #### L 100.0100, L501.4020, L500.2500 #### [facility] [address] [place], [address] EPI,SQUAMOUS 0 SEEN Normal 5-10 [facility] Comment on above: Order Comment: 'TROP ' Serial specimen #1, #2 or #3: 1 Performed By: #### L 100.0100, L501.4020, L500.2500 #### [facility] [address] [place], [address] Mucus Ql (Urine sed) 0 SEEN Normal [facility] Comment on above: Order Comment: 'TROP ' Serial specimen #1, #2 or #3: 1 Performed By: #### L 100.0100, L501.4020, L500.2500 #### [facility] [address] [place], [address] RBC 0 SEEN Normal 0-5 [facility] Comment on above: Order Comment: 'TROP ' Serial specimen #1, #2 or #3: 1 Performed By: #### L 100.0100, L501.4020, L500.2500 #### [facility] [address] [place], [address] Flexible sigmoidoscopy study on 04-29-2024 [facility] Gastrointestinal Endoscopy Patient Name: Lisa Up Procedure Date: 04/29/2024 11:34 AM Date of : 1945 Admit Type: Outpatient Age: 78 Gender: Female Note Status: Finalized Procedure: Colonoscopy Indications: Clinically significant diarrhea of unexplained origin Providers: Zeny Crowder MD Patient Profile: This is an 78 year old female. Refer to note in patient chart for documentation of history and physical. Last Colonoscopy: November 2016. Referring Physician: Zeny Crowder MD (Referring MD), Sylvia Lizama (Referring MD) Medicines: Fentanyl 50 micrograms IV, Midazolam 4 mg IV, Diphenhydramine 50 mg IV Complications: No immediate complications. Estimated blood loss: Minimal. Requesting Provider: Procedure: Pre-Anesthesia Assessment: - Prior to the procedure, a History and Physical was performed, and patient medications and allergies were reviewed. The patient's tolerance of previous anesthesia was also reviewed. The risks and benefits of the procedure and the sedation options and risks were discussed with the patient. All questions were answered, and informed consent was obtained. Prior Anticoagulants: The patient has taken Eliquis (apixaban), last dose was 4 days prior to procedure. ASA Grade Assessment: III - A patient with severe systemic disease. After reviewing the risks and benefits, the patient was deemed in satisfactory condition to undergo the procedure. After I obtained informed consent, the scope was passed under direct vision. Throughout the procedure, the patient's blood pressure, pulse, and oxygen saturations were monitored continuously. The Colonoscope was introduced through the anus and advanced to the cecum, identified by appendiceal orifice and ileocecal valve. The colonoscopy was performed without difficulty. The patient tolerated the procedure well. The quality of the bowel preparation was good. The ileocecal valve, appendiceal orifice, and rectum were photographed. Moderate Sedation: The administration of moderate sedation was initiated at 11:45 AM. Moderate (conscious) sedation was personally administered by the endoscopist. The following parameters were monitored: oxygen saturation, heart rate, blood pressure, respiratory rate, EKG, adequacy of pulmonary ventilation, and response to care. Total physician intraservice time was 18 minutes. Findings: The perianal and digital rectal examinations were normal. A small polyp was found in the ascending colon. The polyp was sessile. The polyp was removed with a jumbo cold forceps. Resection and retrieval were complete. The colon (entire examined portion) appeared normal. Biopsies for histology were taken with a cold forceps from the entire colon for evaluation of microscopic colitis. The exam was otherwise without abnormality on direct and retroflexion views. Impression: - One small polyp in the ascending colon, removed with a jumbo cold forceps. Resected and retrieved. - The entire examined colon is normal. Biopsied. - The examination was otherwise normal on direct and retroflexion views. Recommendation: - Patient has a contact number available for emergencies. The signs and symptoms of potential delayed complications were discussed with the patient. Return to normal activities tomorrow. Written discharge instructions were provided to the patient. - Resume previous diet. - Continue present medications. - Await pathology results. - Repeat colonoscopy in 10 years for screening purposes. - Return to nurse practitioner at appointment to be scheduled. - Resume Eliquis (apixaban) tomorrow at prior dose. Procedure Code(s): --- Professional --- (more content not included)... PROVATION [facility] Radiology Study observation (narrative) [facility] US Extremity - lefton 2023 IMPRESSION: 2.0 x 0.5 x 1.5 cm area within the subcutaneous fat of the LEFT proximal forearm at the site of palpable abnormality which has similar echogenicity compared to the adjacent subcutaneous fat suggestive of a superficial lipoma. Software Engineer Backend: IVAN Transcribe Date/Time: Apr 15 2024 5:45P Dictated by : WALI CORBIN DO This examination was interpreted and the report reviewed and electronically signed by: WALI CORBIN DO on Apr 15 2024 5:50PM [facility] DIVISION OF RADIOLOGY * * *Final Report* * * DATE OF EXAM: Apr 15 2024 11:33AM WRU 1024 - US EXT MASS/FLUID COLLECTION LT / PROCEDURE REASON: Soft tissue mass * * * * Physician Interpretation * * * * EXAMINATION: US EXT MASS/FLUID COLLECTION LT CLINICAL INFORMATION: 78 years old Female with Soft tissue mass COMPARISON: None. TECHNIQUE: Targeted grayscale and Doppler sonography of the LEFT proximal forearm in the area of concern was performed. Images were obtained and stored in a permanent archive. RESULT/ DIVISION OF RADIOLOGY Provider, Keven Cisneros - 04/15/2024 * * *Final Report* * * DATE OF EXAM: Apr 15 2024 11:33AM WRU 1024 - US EXT MASS/FLUID COLLECTION LT / PROCEDURE REASON: Soft tissue mass * * * * Physician Interpretation * * * * EXAMINATION: US EXT MASS/FLUID COLLECTION LT CLINICAL INFORMATION: 78 years old Female with Soft tissue mass COMPARISON: None. TECHNIQUE: Targeted grayscale and Doppler sonography of the LEFT proximal forearm in the area of concern was performed. Images were obtained and stored in a permanent archive. RESULT/ IMPRESSION IMPRESSION: 2.0 x 0.5 x 1.5 cm area within the subcutaneous fat of the LEFT proximal forearm at the site of palpable abnormality which has similar echogenicity compared to the adjacent subcutaneous fat suggestive of a superficial lipoma. Software Engineer Backend: IVAN Transcribe Date/Time: Apr 15 2024 5:45P Dictated by : WALI CORBIN DO This examination was interpreted and the report reviewed and electronically signed by: WALI CORBIN DO on Apr 15 2024 5:50PM EST [facility] Radiology Study observation (narrative) [facility] US Extremity - leftOrdered B y: [facility] Provider on 04-15-2024 [facility] Basic metabolic 2000 panelOr dered By: Clair Cam on 04-02-2024 Anion gap [Moles/Vol] 9 mmol/L 8 - 15 mmol/L [facility] Calcium [Mass/Vol] 9.9 mg/dL 8.5 - 10. 2 mg/dL [facility] Chloride [Moles/Vol] 104 mmol/L 98 - 10 7 mmol/L [facility] CO2 [Moles/Vol] 30 mmol/L 22 - 30 mmol/L [facility] Creatinine [Mass/Vol] 0.81 mg/dL 0.58 - 0.96 mg/dL [facility] GFR/1.73 sq M.predicted among non-blacks MDRD (S/P/Bld) [Vol rate/Area] 73 mL/min/{1.73_m2} - PINF [facility] Comment on above: Estimated Glomerular Filtration Rate (eGFR) is calculated using the 2020 CKD-EPI creatinine equation. This equation utilizes serum creatinine, sex, and age as parameters. The creatinine assay has traceable calibration to isotope dilution-mass spectrometry. Refer to KDIGO guidelines for clinical interpretation. In patients with unstable renal function, e.g. those with acute kidney injury, the eGFR may not accurately reflect actual GFR. Glucose [Mass/Vol] 116 mg/dL High 74 - 99 mg/dL [facility] Comment on above: The [place] Diabete s Association (ADA) provides guidance for cutoff values for fasting glucose and random glucose. The ADA defines fasting as no caloric intake for at least 8 hours. Fasting plasma glucose results between 100 to 125 mg/dL indicate increased risk for diabetes (prediabetes). Fasting plasma glucose results greater than or equal to 126 mg/dL meet the criteria for diagnosis of diabetes. In the absence of unequivocal hyperglycemia, results should be confirmed by repeat testing. In a patient with classic symptoms of hyperglycemia or hyperglycemic crisis, random plasma glucose results greater than or equal to 200 mg/dL meet the criteria for diagnosis of diabetes. Reference: Standards of Medical Care in Diabetes 2016, [place] Diabetes Association. Diabetes Care. 2016.39(Suppl 1). Interpretation and review of laboratory results Abnormal [facility] Potassium [Moles/Vol] 4.1 mmol/L 3.7 - 5.1 mmol/L [facility] Sodium [Moles/Vol] 143 mmol/L 136 - 144 mmol/L [facility] Urea nitrogen [Mass/Vol] 13 mg/dL 7 - 21 mg/dL [facility] Ova and Parasites 8623on OP OVA AND PARASITES EXAM, ROUTINE These results were obtained using wet preparation(s) and trichrome stained smear. This test does not include testing for Crytosporidium parvum, Cyclospora, or Microsporidia. O+P Spec Micro One negative specimen does not rule out the possibility of a parasitic infection. TESTING PERFORMED AT [facility]. ORIGINAL REPORT ON FILE IN LAB CONTAINS ADDITIONAL TEST SITE INFORMATION. Ova/Parasite Exam NO OVA, CYSTS, OR PARASITES FOUND. Normal [facility] Comment on above: Performed By: #### L 100.0100, L501.4020, L500.2500 #### [facility] [address] [place], [address] Basic Metabolic Profile (BMP )on 03-26-2024 BUN/CRE 17.8 RATIO Normal 10-20 [facility] Comment on above: Performed By: #### L 100.0100, L501.5200, L500.2500 #### [facility] [address] [place], [address] CA,Total 8.7 mg/dL Normal 8.5-10.1 [facility] Comment on above: Performed By: #### L 100.0100, L501.5200, L500.2500 #### [facility] [address] [place], [address] Chloride [Moles/Vol] 110 mmol/L High 98-107 [facility] Comment on above: Performed By: #### L 100.0100, L501.5200, L500.2500 #### [facility] [address] [place], [address] CO2 [Moles/Vol] 26.0 mmol/L Normal 21.0-32.0 [facility] Comment on above: Performed By: #### L 100.0100, L501.5200, L500.2500 #### [facility] [address] [place], [address] Creatinine [Mass/Vol] 0.67 mg/dL Normal 0.55-1.02 [facility] Comment on above: Result Comment: The validity of the calculated GFR GFRAA in patients over 70 years has not been determined. Clinical correlation is essential. Performed By: #### L 100.0100, L501.5200, L500.2500 #### [facility] [address] [place], [address] ECRCL 63.94 ml/min Normal [facility] Comment on above: Performed By: #### L 100.0100, L501.5200, L500.2500 #### [facility] [address] [place], [address] EST GFR - AA 108 mL/min Normal >60 [facility] Comment on above: Result Comment: Afri can [place] GFR Calc Performed By: #### L 100.0100, L501.5200, L500.2500 #### [facility] [address] [place], [address] GAP 6 Normal 5-15 [facility] Comment on above: Performed By: #### L 100.0100, L501.5200, L500.2500 #### [facility] [address] [place], [address] GFR/1.73 sq M.predicted among non-blacks MDRD (S/P/Bld) [Vol rate/Area] 90 mL/min/{1.73_m2} Normal >60 [facility] Comment on above: Result Comment: Non- GFR Calc Performed By: #### L 100.0100, L501.5200, L500.2500 #### [facility] [address] [place], [address] Glucose [Mass/Vol] 111 mg/dL High 74-106 [facility] Comment on above: Result Comment: Fast ing Glucose result from 100 to 125 mg/dL suggests IMPAIRED HOMEOSTASIS per A.D.A. criteria. Performed By: #### L 100.0100, L501.5200, L500.2500 #### [facility] [address] [place], [address] Potassium [Moles/Vol] 3.5 mmol/L Normal 3.5-5.1 [facility] Comment on above: Performed By: #### L 100.0100, L501.5200, L500.2500 #### [facility] [address] [place], [address] Sodium [Moles/Vol] 142 mmol/L Normal 136-145 [facility] Comment on above: Performed By: #### L 100.0100, L501.5200, L500.2500 #### [facility] [address] [place], [address] Urea nitrogen [Mass/Vol] 12 mg/dL Normal 7-18 [facility] Comment on above: Performed By: #### L 100.0100, L501.5200, L500.2500 #### [facility] [address] [place], [address] CBC W/Diff, Automatedon 07-0 5-2024 Absolute Lymph 1.11 X10 3/uL Normal 0.83-4.51 [facility] Comment on above: Performed By: #### L 100.0100, L501.5200, L500.2500 #### [facility] [address] [place], [address] Absolute Neut 2.7 X10 3/uL Normal 2.0-7.7 [facility] Comment on above: Performed By: #### L 100.0100, L501.5200, L500.2500 #### [facility] [address] [place], [address] Basophils/100 WBC (Bld) 0.2 % Normal 0-1 [facility] Comment on above: Performed By: #### L 100.0100, L501.5200, L500.2500 #### [facility] [address] [place], [address] Eosinophils/100 WBC (Bld) 4.7 % Normal 0-5 [facility] Comment on above: Performed By: #### L 100.0100, L501.5200, L500.2500 #### [facility] [address] [place], [address] Erythrocyte distribution width (RBC) [Ratio] 13.2 % Normal 11.6-14.6 [facility] Comment on above: Performed By: #### L 100.0100, L501.5200, L500.2500 #### [facility] [address] [place], [address] Hematocrit (Bld) [Volume fraction] 34.8 % Low 37-47 [facility] Comment on above: Performed By: #### L 100.0100, L501.5200, L500.2500 #### [facility] [address] [place], [address] Hemoglobin (Bld) [Mass/Vol] 11.1 g/dL Low 12.0-15.0 [facility] Comment on above: Performed By: #### L 100.0100, L501.5200, L500.2500 #### [facility] [address] [place], [address] IG% 0.200 Normal 0.0-0.9 [facility] Comment on above: Result Comment: IG% - Immature Granulocytes (promyelocytes, myelocytes and metamyelocytes) > 1% indicates that a LEFT SHIFT is Present. Performed By: #### L 100.0100, L501.5200, L500.2500 #### [facility] [address] [place], [address] Lymphocytes/100 WBC (Bld) 24.7 % Normal 19-41 [facility] Comment on above: Performed By: #### L 100.0100, L501.5200, L500.2500 #### [facility] [address] [place], [address] MCH (RBC) [Entitic mass] 31.4 pg Normal 27.0-32.0 [facility] Comment on above: Performed By: #### L 100.0100, L501.5200, L500.2500 #### [facility] [address] [place], [address] MCHC (RBC) [Mass/Vol] 31.9 g/dL Low 32-36 [facility] Comment on above: Performed By: #### L 100.0100, L501.5200, L500.2500 #### [facility] [address] [place], [address] MCV (RBC) [Entitic vol] 98.3 fL Normal 81-99 [facility] Comment on above: Performed By: #### L 100.0100, L501.5200, L500.2500 #### [facility] [address] [place], [address] Monocytes/100 WBC (Bld) 10.7 % High 0-10 [facility] Comment on above: Performed By: #### L 100.0100, L501.5200, L500.2500 #### [facility] [address] [place], [address] Neutrophils/100 WBC (Bld) 59.5 % Normal 47-70 [facility] Comment on above: Performed By: #### L 100.0100, L501.5200, L500.2500 #### [facility] [address] [place], [address] Nucleated RBC (Bld) [#/Vol] 0 10*3/uL Normal 0-5 [facility] Comment on above: Performed By: #### L 100.0100, L501.5200, L500.2500 #### [facility] [address] [place], [address] Platelet mean volume (Bld) [Entitic vol] 9.6 fL Normal 6.2-12.0 [facility] Comment on above: Performed By: #### L 100.0100, L501.5200, L500.2500 #### [facility] [address] [place], [address] Platelets (Bld) [#/Vol] 109 10*3/uL Low 150-450 [facility] Comment on above: Performed By: #### L 100.0100, L501.5200, L500.2500 #### [facility] [address] [place], [address] RBC (Bld) [#/Vol] 3.54 10*6/uL Low 4.2-5.4 [facility] Comment on above: Performed By: #### L 100.0100, L501.5200, L500.2500 #### [facility] [address] [place], [address] RDW SD 47.8 fl High 35.1-43.9 [facility] Comment on above: Performed By: #### L 100.0100, L501.5200, L500.2500 #### [facility] [address] [place], [address] WBC (Bld) [#/Vol] 4.5 10*3/uL Normal 4.4-11.0 [facility] Comment on above: Performed By: #### L 100.0100, L501.5200, L500.2500 #### [facility] [address] [place], [address] Discharge Instructionon Discharge Instruction [facility] Medical Records Department [address] [place] [address] Instructions for Home/Discharge Instructions 03/26/24 1052 MR#: [id number] Acct: [id number] Name: LISA UP Rep #: [id number] : 1945 78 From: Kenyon Joiner MD PCP: Dr. Sylvia Lizama MD Status:ADM IN Discharge Instructions Diet Discharge Diet: Low fat / Low cholesterol Activity Discharge Activity: Return to Normal Activity Dressing / Incision Call your doctor if you observe: Fever of 101 or Higher, Shortness of breath, Dizziness, Fainting spells, Swelling in the ankles, Chest pain and Increased palpitations (irregular heartbeat) Follow Up Care Test Results: Test results from this visit will be discussed in further detail at your follow-up appointment, if applicable. Discharge Plan Admission Admit Date/Time: 03/24/24 15:22 Attending Provider: Kenyon Joiner Primary Care Provider: Sylvia Lizama Consulting Providers: Maria Isaebl Glover Instructions Patient Instructions: Understanding Norovirus, ED Diarrhea, Viral (Adult), ED Diarrhea, Bacterial (Adult) Discharge Orders/Prescriptions Prescriptions: New clonidine HCl 0.1 mg Tablet 0.1 mg PO BID 30 Days Qty: 60 0RF Continued potassium chloride 10 MEQ tablet 10 meq PO BID multivitamin with folic acid [Thera] 1 TABLET tablet 1 tab PO DAILY apixaban 5 MG tablet 5 mg PO BID levothyroxine 75 mcg Tablet 75 mcg PO DAILY carvedilol 25 mg tablet 25 mg PO BID paroxetine HCl 10 mg tablet 10 mg PO DAILY gabapentin 400 mg capsule 400 mg PO TID hydralazine 50 mg tablet 50 mg PO BID biotin 1 tab PO DAILY Referrals / Follow Up: Sylvia Lizama MD [Primary Care Provider] - Within 1 Week Disposition Disposition (needs filled in before D/C Order can be placed): Home, Self Care 03/26/24 1058 Kenyon Joiner MD CC: Dr. Maria Isabel Glover MD; Dr. Sylvia Lizama MD Signed Normal [facility] Magnesiumon 03-26-2024 Magnesium [Mass/Vol] 1.8 mg/dL Normal 1.6-2.6 [facility] Comment on above: Performed By: #### L 100.0100, L501.5200, L500.2500 #### [facility] [address] [place], [address] CBC W/Diff, Automatedon 07-0 -2023 Absolute Lymph 0.97 X10 3/uL Normal 0.83-4.51 [facility] Comment on above: Performed By: #### L 500.4050, L501.5200, L100.0100 #### [facility] [address] [place], [address] Absolute Neut 2.0 X10 3/uL Normal 2.0-7.7 [facility] Comment on above: Performed By: #### L 500.4050, L501.5200, L100.0100 #### [facility] [address] [place], [address] Basophils/100 WBC (Bld) 0.6 % Normal 0-1 [facility] Comment on above: Performed By: #### L 500.4050, L501.5200, L100.0100 #### [facility] [address] [place], [address] Eosinophils/100 WBC (Bld) 4.0 % Normal 0-5 [facility] Comment on above: Performed By: #### L 500.4050, L501.5200, L100.0100 #### [facility] [address] [place], [address] Erythrocyte distribution width (RBC) [Ratio] 13.3 % Normal 11.6-14.6 [facility] Comment on above: Performed By: #### L 500.4050, L501.5200, L100.0100 #### [facility] [address] [place], [address] Hematocrit (Bld) [Volume fraction] 37.8 % Normal 37-47 [facility] Comment on above: Performed By: #### L 500.4050, L501.5200, L100.0100 #### [facility] [address] [place], [address] Hemoglobin (Bld) [Mass/Vol] 12.0 g/dL Normal 12.0-15.0 [facility] Comment on above: Performed By: #### L 500.4050, L501.5200, L100.0100 #### [facility] [address] [place], [address] IG% 0.300 Normal 0.0-0.9 [facility] Comment on above: Result Comment: IG% - Immature Granulocytes (promyelocytes, myelocytes and metamyelocytes) > 1% indicates that a LEFT SHIFT is Present. Performed By: #### L 500.4050, L501.5200, L100.0100 #### [facility] [address] [place], [address] Lymphocytes/100 WBC (Bld) 27.5 % Normal 19-41 [facility] Comment on above: Performed By: #### L 500.4050, L501.5200, L100.0100 #### [facility] [address] [place], [address] MCH (RBC) [Entitic mass] 31.0 pg Normal 27.0-32.0 [facility] Comment on above: Performed By: #### L 500.4050, L501.5200, L100.0100 #### [facility] [address] [place], [address] MCHC (RBC) [Mass/Vol] 31.7 g/dL Low 32-36 [facility] Comment on above: Performed By: #### L 500.4050, L501.5200, L100.0100 #### [facility] [address] [place], [address] MCV (RBC) [Entitic vol] 97.7 fL Normal 81-99 [facility] Comment on above: Performed By: #### L 500.4050, L501.5200, L100.0100 #### [facility] [address] [facility] [place], [address] Monocytes/100 WBC (Bld) 11.0 % High 0-10 [facility] Comment on above: Performed By: #### L 500.4050, L501.5200, L100.0100 #### [facility] [address] [place], [address] Neutrophils/100 WBC (Bld) 56.6 % Normal 47-70 [facility] Comment on above: Performed By: #### L 500.4050, L501.5200, L100.0100 #### [facility] [address] [place], [address] Nucleated RBC (Bld) [#/Vol] 0 10*3/uL Normal 0-5 [facility] Comment on above: Performed By: #### L 500.4050, L501.5200, L100.0100 #### [facility] [address] [place], [address] Platelet mean volume (Bld) [Entitic vol] 9.4 fL Normal 6.2-12.0 [facility] Comment on above: Performed By: #### L 500.4050, L501.5200, L100.0100 #### [facility] [address] [place], [address] Platelets (Bld) [#/Vol] 129 10*3/uL Low 150-450 [facility] Comment on above: Performed By: #### L 500.4050, L501.5200, L100.0100 #### [facility] [address] [place], [address] RBC (Bld) [#/Vol] 3.87 10*6/uL Low 4.2-5.4 [facility] Comment on above: Performed By: #### L 500.4050, L501.5200, L100.0100 #### [facility] [address] [place], [address] RDW SD 48.2 fl High 35.1-43.9 [facility] Comment on above: Performed By: #### L 500.4050, L501.5200, L100.0100 #### [facility] [address] [place], [address] WBC (Bld) [#/Vol] 3.5 10*3/uL Low 4.4-11.0 [facility] Comment on above: Performed By: #### L 500.4050, L501.5200, L100.0100 #### [facility] [address] [place], [address] CDIFF (PCR)on 03-25-2024 CDIFF A positive C. difficile molecular test does not differentiate between an active C. difficile infection and C. difficile colonization. Use clinical judgement and paired toxin/antigen testing to identify true infection and need for treatment. C diff DNA Spec Ql ANALI+probe Reference Range: Negative CepSolarusid GeneXpert: polymerase chain reaction (PCR) 027 027 NAP1-B1 Presumptive Negative *for epidemiolologic???use C. Diff PCR Negative- No toxigenic C. Diff Detected Normal [facility] Comment on above: Performed By: #### M 100.6796, M100.0605, L400.0001, M100.637 ####[facility] [address] [place], [address] CORTISOL SERUMon 03-25-2024 CORTISOL 6.20 ug/dL Normal 3.44-22.45 [facility] Comment on above: Result Comment: Adul t (AM) 5.27 - 22.45 ug/dL Adult (PM) 3.44 - 16.76 ug/dL Please note revised CORTISOL reference range effective 2019. Performed By: #### L 100.0100, L501.5200, L500.2500 #### [facility] [address] [place], [address] Comprehensive Metabolic Prof ilon 07-04-2024 Albumin [Mass/Vol] 3.1 g/dL Low 3.2-5.0 [facility] Comment on above: Performed By: #### L 500.4050, L501.5200, L100.0100 ####[facility] [address] [place], [address] Albumin/Globulin [Mass ratio] 1.2 {ratio} Normal 0.9-2.4 [facility] Comment on above: Performed By: #### L 500.4050, L501.5200, L100.0100 ####[facility] [address] [place], [address] ALK P 65 U/L Normal 45-117 [facility] Comment on above: Performed By: #### L 500.4050, L501.5200, L100.0100 ####[facility] [address] [place], [address] ALT [Catalytic activity/Vol] 9 U/L Low 13-56 [facility] Comment on above: Performed By: #### L 500.4050, L501.5200, L100.0100 ####[facility] [address] [place], [address] AST [Catalytic activity/Vol] 17 U/L Normal 15-37 [facility] Comment on above: Performed By: #### L 500.4050, L501.5200, L100.0100 ####[facility] [address] [place], [address] Bilirubin [Mass/Vol] 0.40 mg/dL Normal 0.20-1.00 [facility] Comment on above: Result Comment: For patients on eltrombopag therapy, use of Dimension [place] TBIL is not recommended. Performed By: #### L 500.4050, L501.5200, L100.0100 ####[facility] [address] [place], [address] BUN/CRE 13.5 RATIO Normal 10-20 [facility] Comment on above: Performed By: #### L 500.4050, L501.5200, L100.0100 ####[facility] [address] [place], [address] CA,Total 9.0 mg/dL Normal 8.5-10.1 [facility] Comment on above: Performed By: #### L 500.4050, L501.5200, L100.0100 ####[facility] [address] [place], [address] Chloride [Moles/Vol] 111 mmol/L High 98-107 [facility] Comment on above: Performed By: #### L 500.4050, L501.5200, L100.0100 ####[facility] [address] [place], [address] CO2 [Moles/Vol] 26.0 mmol/L Normal 21.0-32.0 [facility] Comment on above: Performed By: #### L 500.4050, L501.5200, L100.0100 ####[facility] [address] [place], [address] Creatinine [Mass/Vol] 0.67 mg/dL Normal 0.55-1.02 [facility] Comment on above: Result Comment: The validity of the calculated GFR GFRAA in patients over 70 years has not been determined. Clinical correlation is essential. Performed By: #### L 500.4050, L501.5200, L100.0100 ####[facility] [address] [place], [address] ECRCL 63.94 ml/min Normal [facility] Comment on above: Performed By: #### L 500.4050, L501.5200, L100.0100 ####[facility] [address] [place], [address] EST GFR - AA 109 mL/min Normal >60 [facility] Comment on above: Result Comment: Afri can [place] GFR Calc Performed By: #### L 500.4050, L501.5200, L100.0100 ####[facility] [address] [place], [place], [id number] GAP 6 Normal 5-15 [facility] Comment on above: Performed By: #### L 500.4050, L501.5200, L100.0100 ####[facility] [address] [place], [address] GFR/1.73 sq M.predicted among non-blacks MDRD (S/P/Bld) [Vol rate/Area] 90 mL/min/{1.73_m2} Normal >60 [facility] Comment on above: Result Comment: Non- GFR Calc Performed By: #### L 500.4050, L501.5200, L100.0100 ####[facility] [address] [place], [address] Globulin (S) [Mass/Vol] 2.5 g/dL Normal 2.2-4.2 [facility] Comment on above: Performed By: #### L 500.4050, L501.5200, L100.0100 ####[facility] [address] [place], [address] Glucose [Mass/Vol] 102 mg/dL Normal 74-106 [facility] Comment on above: Result Comment: Fast ing Glucose result from 100 to 125 mg/dL suggests IMPAIRED HOMEOSTASIS per A.D.A. criteria. Performed By: #### L 500.4050, L501.5200, L100.0100 ####[facility] [address] [place], [address] Potassium [Moles/Vol] 3.4 mmol/L Low 3.5-5.1 [facility] Comment on above: Performed By: #### L 500.4050, L501.5200, L100.0100 ####[facility] [address] [place], [address] Sodium [Moles/Vol] 143 mmol/L Normal 136-145 [facility] Comment on above: Performed By: #### L 500.4050, L501.5200, L100.0100 ####[facility] [address] [place], [address] T PROT 5.6 g/dL Low 6.4-8.2 [facility] Comment on above: Performed By: #### L 500.4050, L501.5200, L100.0100 ####[facility] [address] [place], [address] Urea nitrogen [Mass/Vol] 9 mg/dL Normal 7-18 [facility] Comment on above: Performed By: #### L 500.4050, L501.5200, L100.0100 ####[facility] [address] [place], [address] ENTERIC PATHOGEN PANEL STOOL on 03-25-2024 EP PANEL EP RESULTS CALLED TO BENEDICT ROSALES RN PCU 03-25-24 AT 1810PM MAF SENT TO [facility] Not Detected Norovirus A Norovirus Detected A Rotavirus Not Detected Salmonella Not Detected Shiga Toxin Not Detected Shigella sp. Not Detected VIBRIO A Vibrio Detected A Yersinia Not Detected Vibrio Species Norovirus Normal [facility] Comment on above: Performed By: #### M 100.6796, M100.0605, L400.0001, M100.637 ####[facility] [address] [place], [address] Magnesiumon 03-25-2024 Magnesium [Mass/Vol] 1.5 mg/dL Low 1.6-2.6 [facility] Comment on above: Performed By: #### L 500.4050, L501.5200, L100.0100 ####[facility] [address] [place], [address] Stool Lactoferrin/WBCon -0 WBCST Normal Reference Ran ge = Negative Fecal WBC Lactoferrin Negative: No Fecal WBC Lactoferrin present Normal [facility] Comment on above: Performed By: #### M 100.6796, M100.0605, L400.0001, M100.637 ####[facility] [address] [place], [address] Vitamin B12on 03-25-2024 Cobalamin (Vitamin B12) [Mass/Vol] 824 pg/mL Normal 211-911 [facility] Comment on above: Performed By: #### L 100.0100, L501.5200, L500.2500 #### [facility] [address] [place], [address] Vitamin D,25 Hydroxyon 03-25 Vitamin D 25-OH 53.3 ng/mL Normal [facility] Comment on above: Result Comment: Mona min D 25(OH) Status Range Deficiency <20 ng/mL (50nmol/L) Insufficiency 20 - 30 ng/mL (50 - 75 nmol/L) Sufficiency 30 - 100 ng/mL (75 - 250 nmol/L) Toxicity >100 ng/mL (>250 nmol/L) Performed By: #### L 100.0100, L501.5200, L500.2500 #### [facility] [address] [place], [address] Abdomen/Pelvis W IV Cont ONL Yon 03-24-2024 Abdomen/Pelvis W IV Cont ONLY [facility] Imaging Services [address] [place] [address] Abdomen/Pelvis W IV Cont ONLY MR#: [id number] Acct: [id number] Name: LISA UP Rep #: [id number] : 1945 F 78 From: Jay Parks PCP: Dr. Sylvia Lizama MD Status: REG ER Study: Abdomen/Pelvis W IV Cont ONLY Date of Exam: Exam# [id number] Ordering Dr: Rose Marie Joyner MD [id number] STUDY: CT ABDOMEN AND PELVIS WITH CONTRAST REASON FOR EXAM: Female, 78 years old. Abdominal pain, diarrhea RADIATION DOSAGE (If Supplied By Facility): CTDIvol = ( 15.42 ) mGy, DLP = ( 1212.91 ) mGycm TECHNIQUE: IV 100mL [id number]-[id number] was administered. Transaxial images were obtained from the dome of the diaphragm to the symphysis pubis. Multiplanar coronal and sagittal images were reformatted. The protocol utilizes one or more of the following dose reduction techniques: automated exposure control, adjustment of mA and/or kV according to patient size,and/or use of iterative reconstruction technique. COMPARISON: No relevant prior comparison study available FINDINGS: The visualized lung bases are unremarkable. The visualized portions of the heart are within normal limits. Coronary calcifications are seen. Scattered small calcifications. No focal lesion is seen in the liver. The gallbladder is contracted. There are multiple benign calcified granulomata of the spleen. Normal pancreas. Normal bilateral adrenal glands. There is a small hiatal hernia. Normal in caliber small bowel loops. No evidence of acute diverticulitis. The appendix is visualized and appears normal. Mild tortuosity of the abdominal aorta without evidence of aneurysm. IVC filter is seen. No retroperitoneal adenopathy. Unremarkable kidneys. No evidence of hydronephrosis. Normal urinary bladder. There is absence of the uterus consistent with a prior hysterectomy. Diastases of the anterior rectus muscles and small umbilical hernia containing fat. Multilevel degenerative changes of the spine. CT/Abdomen/Pelvis W IV Cont ONLY IMPRESSION: No focal acute inflammatory process. Electronically Signed: Jay Arias MD at 11:30 EDT , CC: Dr. Rose Marie Joyner MD; Dr. Sylvia Lizama MD Software Engineer Backend: Signed Normal [facility] Basic Metabolic Profile (BMP )on 03-24-2024 BUN/CRE 15.3 RATIO Normal 10-20 [facility] Comment on above: Performed By: #### L 503.6005, L100.0100, L501.2450, L500.2500, L500.3400 ####[facility] [address] [place], [address] CA,Total 9.5 mg/dL Normal 8.5-10.1 [facility] Comment on above: Performed By: #### L 503.6005, L100.0100, L501.2450, L500.2500, L500.3400 ####[facility] [address] [place], [address] Chloride [Moles/Vol] 106 mmol/L Normal 98-107 [facility] Comment on above: Performed By: #### L 503.6005, L100.0100, L501.2450, L500.2500, L500.3400 ####[facility] [address] [place], [address] CO2 [Moles/Vol] 27.0 mmol/L Normal 21.0-32.0 [facility] Comment on above: Performed By: #### L 503.6005, L100.0100, L501.2450, L500.2500, L500.3400 ####[facility] [address] [place], [address] Creatinine [Mass/Vol] 0.72 mg/dL Normal 0.55-1.02 [facility] Comment on above: Result Comment: The validity of the calculated GFR GFRAA in patients over 70 years has not been determined. Clinical correlation is essential. Performed By: #### L 503.6005, L100.0100, L501.2450, L500.2500, L500.3400 ####[facility] [address] [place], [address] ECRCL 63.89 ml/min Normal [facility] Comment on above: Performed By: #### L 503.6005, L100.0100, L501.2450, L500.2500, L500.3400 ####[facility] [address] [place], [address] EST GFR - AA 100 mL/min Normal >60 [facility] Comment on above: Result Comment: Afri can Angolan GFR Calc Performed By: #### L 503.6005, L100.0100, L501.2450, L500.2500, L500.3400 ####[facility] [address] [place], [address] GAP 7 Normal 5-15 [facility] Comment on above: Performed By: #### L 503.6005, L100.0100, L501.2450, L500.2500, L500.3400 ####[facility] [address] [place], [address] GFR/1.73 sq M.predicted among non-blacks MDRD (S/P/Bld) [Vol rate/Area] 83 mL/min/{1.73_m2} Normal >60 [facility] Comment on above: Result Comment: Non- GFR Calc Performed By: #### L 503.6005, L100.0100, L501.2450, L500.2500, L500.3400 ####[facility] [address] [place], [address] Glucose [Mass/Vol] 115 mg/dL High 74-106 [facility] Comment on above: Result Comment: Fast ing Glucose result from 100 to 125 mg/dL suggests IMPAIRED HOMEOSTASIS per A.D.A. criteria. Performed By: #### L 503.6005, L100.0100, L501.2450, L500.2500, L500.3400 ####[facility] [address] [place], [address] Potassium [Moles/Vol] 3.5 mmol/L Normal 3.5-5.1 [facility] Comment on above: Performed By: #### L 503.6005, L100.0100, L501.2450, L500.2500, L500.3400 ####[facility] [address] [place], [address] Sodium [Moles/Vol] 140 mmol/L Normal 136-145 [facility] Comment on above: Performed By: #### L 503.6005, L100.0100, L501.2450, L500.2500, L500.3400 ####[facility] [address] [place], [address] Urea nitrogen [Mass/Vol] 11 mg/dL Normal 7-18 [facility] Comment on above: Performed By: #### L 503.6005, L100.0100, L501.2450, L500.2500, L500.3400 ####[facility] [address] [place], [address] Brain/Head without Contrasto n 03-24-2024 Brain/Head without Contrast [facility] Imaging Services [address] [place] [address] Brain/Head without Contrast MR#: [id number] Acct: [id number] Name: LISA UP Rep #: [id number] : 1945 F 78 From: Jay Parks PCP: Dr. Sylvia Lizama MD Status: REG ER Study: Brain/Head without Contrast Date of Exam: 12/13 Exam# [id number] Ordering Dr: Rose Marie Joyner MD [id number] INDICATION: HTN, hallucinations EXAMINATION: CT BRAIN - CT Head or Brain W/O Contrast Injection TECHNIQUE: Multiple axial images were obtained of the head without intravenous contrast. The protocol utilizes one or more of the following dose reduction techniques: automated exposure control, adjustment of mA and/or kV according to patient size,and/or use of iterative reconstruction technique. IV Contrast dosage and agent: None. RADIATION DOSAGE (If Supplied By Facility): CTDIvol = ( 44.99 ) mGy, DLP = ( 829.85 ) mGycm COMPARISON: Prior study dated: 04/29/2019 FINDINGS: BRAIN PARENCHYMA: No intra- or extra-axial hemorrhage. No evidence of acute infarct. No intracranial mass or mass effect. There is preservation of the goff/white matter interface. Mild chronic periventricular deep white matter changes. Posterior fossa structures are unremarkable. CSF SPACES: Appropriate for age. No hydrocephalus. Basal cisterns are patent. CALVARIUM, SKULL BASE, PARANASAL SINUSES AND MASTOID AIR CELLS: Mucosal thickening of the left maxillary sinus. No discrete lytic or blastic abnormalities. ORBITS: Both globes, extraocular muscles, optic nerves and retrobulbar fat appear unremarkable. CT/Brain/Head without Contrast IMPRESSION: No acute intracranial process. Electronically Signed: Jay Arias MD at 11:34 EDT , CC: Dr. Rose Marie Joyner MD; Dr. Sylvia Lizama MD Software Engineer Backend: Signed Normal [facility] CBC W/Diff, Automatedon 07-0 Absolute Lymph 1.08 X10 3/uL Normal 0.83-4.51 [facility] Comment on above: Performed By: #### L 503.6005, L100.0100, L501.2450, L500.2500, L500.3400 ####[facility] [address] [place], [address] Absolute Neut 3.2 X10 3/uL Normal 2.0-7.7 [facility] Comment on above: Performed By: #### L 503.6005, L100.0100, L501.2450, L500.2500, L500.3400 ####[facility] [address] [place], [address] Basophils/100 WBC (Bld) 0.4 % Normal 0-1 [facility] Comment on above: Performed By: #### L 503.6005, L100.0100, L501.2450, L500.2500, L500.3400 ####[facility] [address] [place], [address] Eosinophils/100 WBC (Bld) 3.0 % Normal 0-5 [facility] Comment on above: Performed By: #### L 503.6005, L100.0100, L501.2450, L500.2500, L500.3400 ####[facility] [address] [place], [address] Erythrocyte distribution width (RBC) [Ratio] 13.2 % Normal 11.6-14.6 [facility] Comment on above: Performed By: #### L 503.6005, L100.0100, L501.2450, L500.2500, L500.3400 ####[facility] [address] [place], [address] Hematocrit (Bld) [Volume fraction] 40.9 % Normal 37-47 [facility] Comment on above: Performed By: #### L 503.6005, L100.0100, L501.2450, L500.2500, L500.3400 ####[facility] [address] [place], [address] Hemoglobin (Bld) [Mass/Vol] 13.2 g/dL Normal 12.0-15.0 [facility] Comment on above: Performed By: #### L 503.6005, L100.0100, L501.2450, L500.2500, L500.3400 ####[facility] [address] [place], [address] IG% 0.600 Normal 0.0-0.9 [facility] Comment on above: Result Comment: IG% - Immature Granulocytes (promyelocytes, myelocytes and metamyelocytes) > 1% indicates that a LEFT SHIFT is Present. Performed By: #### L 503.6005, L100.0100, L501.2450, L500.2500, L500.3400 ####[facility] [address] [place], [address] Lymphocytes/100 WBC (Bld) 21.8 % Normal 19-41 [facility] Comment on above: Performed By: #### L 503.6005, L100.0100, L501.2450, L500.2500, L500.3400 ####[facility] [address] [place], [address] MCH (RBC) [Entitic mass] 30.8 pg Normal 27.0-32.0 [facility] Comment on above: Performed By: #### L 503.6005, L100.0100, L501.2450, L500.2500, L500.3400 ####[facility] [address] [place], [address] MCHC (RBC) [Mass/Vol] 32.3 g/dL Normal 32-36 [facility] Comment on above: Performed By: #### L 503.6005, L100.0100, L501.2450, L500.2500, L500.3400 ####[facility] [address] [place], [address] MCV (RBC) [Entitic vol] 95.6 fL Normal 81-99 [facility] Comment on above: Performed By: #### L 503.6005, L100.0100, L501.2450, L500.2500, L500.3400 ####[facility] [address] [place], [address] Monocytes/100 WBC (Bld) 8.7 % Normal 0-10 [facility] Comment on above: Performed By: #### L 503.6005, L100.0100, L501.2450, L500.2500, L500.3400 ####[facility] [address] [place], [address] Neutrophils/100 WBC (Bld) 65.5 % Normal 47-70 [facility] Comment on above: Performed By: #### L 503.6005, L100.0100, L501.2450, L500.2500, L500.3400 ####[facility] [address] [place], [address] Nucleated RBC (Bld) [#/Vol] 0 10*3/uL Normal 0-5 [facility] Comment on above: Performed By: #### L 503.6005, L100.0100, L501.2450, L500.2500, L500.3400 ####[facility] [address] [place], [address] Platelet mean volume (Bld) [Entitic vol] 9.5 fL Normal 6.2-12.0 [facility] Comment on above: Performed By: #### L 503.6005, L100.0100, L501.2450, L500.2500, L500.3400 ####[facility] [address] [place], [address] Platelets (Bld) [#/Vol] 143 10*3/uL Low 150-450 [facility] Comment on above: Performed By: #### L 503.6005, L100.0100, L501.2450, L500.2500, L500.3400 ####[facility] [address] [place], [address] RBC (Bld) [#/Vol] 4.28 10*6/uL Normal 4.2-5.4 [facility] Comment on above: Performed By: #### L 503.6005, L100.0100, L501.2450, L500.2500, L500.3400 ####[facility] [address] [place], [address] RDW SD 46.8 fl High 35.1-43.9 [facility] Comment on above: Performed By: #### L 503.6005, L100.0100, L501.2450, L500.2500, L500.3400 ####[facility] [address] [place], [address] WBC (Bld) [#/Vol] 5.0 10*3/uL Normal 4.4-11.0 [facility] Comment on above: Performed By: #### L 503.6005, L100.0100, L501.2450, L500.2500, L500.3400 ####[facility] [address] [place], [address] Emergency Department Summary on 03-24-2024 Emergency Department Summary [facility] Medical Records Department [address] [place] [address] Emergency Department Summary 03/24/24 MR#: [id number] Acct: [id number] Name: LISA UP Rep #: [id number] : 1945 78 From: Rose Marie Joyner MD PCP: Dr. Sylvia Lizama MD Status:ADM IN Location: [address] History of Present Illness Chief Complaint: Diarrhea Informant: patient Onset/Context/Timing Onset: Month(s) Narrative Narrative: Patient presents with 2-month history of diarrhea. She states that she was having frequent stools and would take njeu-lbl-fllfzpq antidiarrheal medicine. She then would get constipated for short time. She saw her PCP who reportedly ran stool studies. She is scheduled to see a surgeon on Friday to schedule a colonoscopy. Patient states she was told not to take the antidiarrheal medication. She presents today because of ongoing diarrhea with weakness and some intermittent hallucinations. She does report some chills but no fever. [facility] Medical History DVT (deep venous thrombosis) Post-menopausal Dyspnea History of stress test Ovarian tumor Anticoagulant long-term use Non Hodgkin's lymphoma Dehiscence of surgical wound GERD (gastroesophageal reflux disease) Restless leg syndrome Peripheral neuropathy Osteoarthritis Hypertension Morbid obesity with BMI of 40.0-44.9, adult Home Medications ???Medication ???Instructions ???Recorded ???Last Taken ???Type potassium chloride 10 mEq 10 meq PO BID supplement 06/07/18 07/29/22 History tablet,extended release(part/cryst) multivitamin with folic acid 400 1 tab PO DAILY 08/01/18 07/29/22 History mcg tablet (Thera) apixaban 5 mg tablet 5 mg PO BID 08/13/20 07/29/22 History carvedilol 12.5 mg tablet (Coreg) 12.5 mg PO BID heart 07/30/22 07/29/22 History gabapentin 300 mg capsule 300 mg PO TID 07/30/22 07/29/22 History levothyroxine 75 mcg tablet 75 mcg PO DAILY thyroid 07/30/22 07/29/22 History pantoprazole 40 mg tablet,delayed 40 mg PO DAILY #30 tabs 08/19/22 Unknown Rx release (Protonix) Allergy/AdvReac Type Severity Reaction Status Date / Time COVID-19 vaccine, mRNA, Allergy Anaphylaxis Verified 03/24/24 09:30 [id number], erythromycin base Allergy Rash Verified 03/24/24 09:30 (Erythromycin Base) lisinopril Allergy Swelling Verified 03/24/24 09:30 venom-wasp (wasp) Allergy NEEDS Verified 03/24/24 09:30 FOLLOW-UP amlodipine AdvReac Swelling Verified 03/24/24 09:30 latex AdvReac Swelling Verified 03/24/24 09:30 Family History Mother Hypertension Surgical History S/P laparoscopic cholecystectomy S/P hysterectomy H/O laminectomy History of partial nephrectomy History of tonsillectomy History of total knee arthroplasty History of total abdominal hysterectomy Social History Smoking Status: Never smoker ROS ROS ED Constitutional Constitutional ED: Reports chills; Denies fever(s) Eyes Eyes: Denies change in vision ENT ENT ED: Denies rhinorrhea or sore throat Cardiovascular Cardiovascular: Denies chest pain or palpitations Respiratory/Chest Respiratory/Chest: Denies cough or dyspnea Gastrointestinal Gastrointestinal: Reports abdominal pain and diarrhea; Denies nausea or vomiting Genitourinary Genitourinary ED: Reports dysuria and other Details: Decreased urine output Musculoskeletal Musculoskeletal: Denies back pain or extremity pain Integumentary Denies Abrasions or rash Neurologic Neurologic: Reports weakness; Denies headache(s) Psychiatric Psychiatric: Denies anxiety or depression Allergic/Immunologic Allergic/Immunologic ED: Denies lip swelling or urticaria EXAM Physical Exam Const Vital Signs: 03/24/24 09:30 03/24/24 10:27 03/24/24 10:42 Temperature 96.2 F L Temperature Source Temporal Pulse Rate 72 62 64 Respiratory Rate 18 12 13 Blood Pressure 212/113 H 211/86 H 165/95 H Blood Pressure Mean 146 127 118 Pulse Ox 100 97 Oxygen Delivery Method Room Air Room Air 03/24/24 11:00 03/24/24 12:00 03/24/24 12:24 Temperature Temperature Source Pulse Rate 65 67 Respiratory Rate 16 18 Blood Pressure 244/92 H 204/88 H 211/93 H Blood Pressure Mean 142 126 132 Pulse Ox 97 97 Oxygen Delivery Method Room Air Room Air 03/24/24 12:33 03/24/24 12:48 03/24/24 13:00 Temperature Temperature Source Pulse Rate 68 64 Respiratory Rate 12 12 Blood Pressure 218/98 H 216/96 H 221/96 H Blood Pressure Mean 138 136 137 Pulse Ox 97 97 Oxygen Delivery Method Room Air Room Air 03/24/24 13:30 (more content not included)... Normal [facility] Folates, (Folic Acid)on FOLATES 73.50 ng/mL High 3.1-55.4 [facility] Comment on above: Performed By: #### L 100.0100, L501.5200, L500.2500 #### [facility] [address] [place], [address] H AND P Exam - [facility] 03-24-2024 H&P Exam - Hospitalist [facility] Medical Records Department [address] [place] [address] H P Exam - Hospitalist 03/24/24 1522 MR#: [id number] Acct: [id number] Name: LISA UP Rep #: [id number] : 1945 78 From: Maria Isabel Glover MD PCP: Dr. Sylvia Lizama MD Status:ADM IN Location: [facility] [id number] HPI - General General Date of Admission: 03/24/24 Date of Service: 03/24/24 Chief Complaint: Gen weakness, diarrhea, headaches HPI Narrative LISA UP, is a 78-year-old female with history of hypertension, GERD, DVT, hypothyroidism morbid obesity, RLS who presented to [facility] ED 03/24/2024 due to diarrhea and general weakness. She has had diarrhea for 2 months and is awaiting outpatient surgery consult for colonoscopy schedule next week however she is becoming progressively weaker prompting her ED arrival today. In the ED lab workup fairly benign but patient had consistent significantly elevated blood pressure refractory to multiple rounds of IV medication prompting hospitalist to be contacted for admission for refractory hypertension and generalized weakness. Patient evaluated at bedside and reports the weakness worsening over the past couple of months, has about 3 episodes of diarrhea a day but has been thickening up somewhat. Does report she has had some headaches over the past 2 months and on Friday felt very suspicious in her house and unlike herself that is since resolved. Denies fevers or chills, no abdominal pain, sometimes feels like her eyes hurt but denies any overt changes in vision, has some chronic swelling in lower extremities. [facility] Medical History DVT (deep venous thrombosis) Post-menopausal Dyspnea History of stress test Ovarian tumor Anticoagulant long-term use Non Hodgkin's lymphoma Dehiscence of surgical wound GERD (gastroesophageal reflux disease) Restless leg syndrome Peripheral neuropathy Osteoarthritis Hypertension Morbid obesity with BMI of 40.0-44.9, adult Home Medications ???Medication ???Instructions ???Recorded ???Last Taken ???Type potassium chloride 10 mEq 10 meq PO BID supplement 06/07/18 03/24/24 History tablet,extended release(part/cryst) multivitamin with folic acid 400 1 tab PO DAILY 08/01/18 03/24/24 History mcg tablet (Thera) apixaban 5 mg tablet 5 mg PO BID 08/13/20 03/24/24 History levothyroxine 75 mcg tablet 75 mcg PO DAILY thyroid 07/30/22 03/24/24 History biotin 1 tab PO DAILY 03/24/24 Unknown History carvedilol 25 mg tablet 25 mg PO BID 03/24/24 03/24/24 History gabapentin 400 mg capsule 400 mg PO TID 03/24/24 03/24/24 History hydralazine 50 mg tablet 50 mg PO BID 03/24/24 03/24/24 History paroxetine HCl 10 mg tablet 10 mg PO DAILY 03/24/24 03/24/24 History Allergy/AdvReac Type Severity Reaction Status Date / Time COVID-19 vaccine, mRNA, Allergy Anaphylaxis Verified 03/24/24 09:30 [id number], erythromycin base Allergy Rash Verified 03/24/24 09:30 (Erythromycin Base) lisinopril Allergy Swelling Verified 03/24/24 09:30 venom-wasp (wasp) Allergy NEEDS Verified 03/24/24 09:30 FOLLOW-UP amlodipine AdvReac Swelling Verified 03/24/24 09:30 latex AdvReac Swelling Verified 03/24/24 09:30 Family History Mother Hypertension Surgical History S/P laparoscopic cholecystectomy S/P hysterectomy H/O laminectomy History of partial nephrectomy History of tonsillectomy History of total knee arthroplasty History of total abdominal hysterectomy Social History Smoking Status: Never smoker ROS ROS Narrative General: Denies fever/chills HENT: Intermittent headaches especially right side of head, denies stuffy nose, denies sore throat EYES: Denies changes in vision but sometimes looking behind her eyes when she has a headache Resp: Denies cough, denies shortness of breath Cardiac: Denies chest pain GI: Denies abdominal pain, 3 bowel movements a day, denies nausea/vomiting : Denies changes in urination Extremity: Reports some chronic swelling in lower extremities MSK: Some generalized weakness Neuro: Denies any numbness/tingling Heme: Denies any bleeding or bruising Skin: Denies rashes Psychiatric: No complaints voiced Vital Signs Vital Signs Vital Signs: 03/24/24 09:30 03/24/24 10:27 03/24/24 10:42 Temperature 96.2 F L Temperature Source Temporal Pulse Rate 72 62 64 Respiratory Rate 18 12 13 Blood Pressure 212/113 H 211/86 H 165/95 H Blood Pressure Mean 146 127 118 Pulse Ox 100 97 Oxygen Delivery Method Room Air Room Air 03/24/24 11:00 03/24/24 12:00 03/24/24 12:24 Temperature Tem (more content not included)... Normal [facility] Lactic Acidon 03-24-2024 Lactate [Moles/Vol] 1.1 mmol/L Normal 0.4-1.9 [facility] Comment on above: Order Comment: Y Performed By: #### L 503.6005, L100.0100, L501.2450, L500.2500, L500.3400 ####[facility] [address] [place], [place], [id number] Lipaseon 03-24-2024 Lipase [Catalytic activity/Vol] 34 U/L Normal 13-75 [facility] Comment on above: Result Comment: Katty gardner note: LIPASE revised reference range effective 22. New Lipase methodology. Expected to produce lower values than the previous assay method. NEW Reference Range: 13 - 75 U/L Performed By: #### L 503.6005, L100.0100, L501.2450, L500.2500, L500.3400 ####[facility] [address] [place], [place], [id number] Liver Profileon 03-24-2024 Albumin [Mass/Vol] 3.4 g/dL Normal 3.2-5.0 [facility] Comment on above: Performed By: #### L 503.6005, L100.0100, L501.2450, L500.2500, L500.3400 ####[facility] [address] [place], [address] ALK P 75 U/L Normal 45-117 [facility] Comment on above: Performed By: #### L 503.6005, L100.0100, L501.2450, L500.2500, L500.3400 ####[facility] [address] [place], [address] ALT [Catalytic activity/Vol] 10 U/L Low 13-56 [facility] Comment on above: Performed By: #### L 503.6005, L100.0100, L501.2450, L500.2500, L500.3400 ####[facility] [address] [place], [address] AST [Catalytic activity/Vol] 12 U/L Low 15-37 [facility] Comment on above: Performed By: #### L 503.6005, L100.0100, L501.2450, L500.2500, L500.3400 ####[facility] [address] [place], [address] Bilirubin [Mass/Vol] 0.50 mg/dL Normal 0.20-1.00 [facility] Comment on above: Result Comment: For patients on eltrombopag therapy, use of Dimension [place] TBIL is not recommended. Performed By: #### L 503.6005, L100.0100, L501.2450, L500.2500, L500.3400 ####[facility] [address] [place], [address] Bilirubin.direct [Mass/Vol] 0.13 mg/dL Normal 0.00-0.30 [facility] Comment on above: Performed By: #### L 503.6005, L100.0100, L501.2450, L500.2500, L500.3400 ####[facility] [address] [place], [address] Globulin (S) [Mass/Vol] 2.8 g/dL Normal 2.2-4.2 [facility] Comment on above: Performed By: #### L 503.6005, L100.0100, L501.2450, L500.2500, L500.3400 ####[facility] [address] [place], [address] T PROT 6.2 g/dL Low 6.4-8.2 [facility] Comment on above: Performed By: #### L 503.6005, L100.0100, L501.2450, L500.2500, L500.3400 ####[facility] [address] [place], [address] Magnesiumon 03-24-2024 Magnesium [Mass/Vol] 1.7 mg/dL Normal 1.6-2.6 [facility] Comment on above: Performed By: #### L 100.0100, L501.5200, L500.2500 #### [facility] [address] [place], [address] Phosphoruson 03-24-2024 Phosphate [Mass/Vol] 3.3 mg/dL Normal 2.5-4.9 [facility] Comment on above: Performed By: #### L 100.0100, L501.5200, L500.2500 #### [facility] [address] [place], [address] T4 Free Directon 03-24-2024 T4 FREE DIRECT 1.43 ng/dL Normal 0.76-1.46 [facility] Comment on above: Performed By: #### L 100.0100, L501.5200, L500.2500 #### [facility] [address] [place], [address] Thyroid Stim Hormone (TSH)on 03-24-2024 TSH 2.10 uIU/mL Normal 0.358-3.74 [facility] Comment on above: Performed By: #### L 100.0100, L501.5200, L500.2500 #### [facility] [address] [place], [address] Urinalysis, Completeon 03-24 BACTERIA 0 SEEN Normal None Seen [facility] Comment on above: Order Comment: CLEAN CATCH Performed By: #### M 100.6796, M100.0605, L400.0001, M100.637 ####[facility] [address] [place], [address] EPI,SQUAMOUS 0 SEEN Normal 5-10 [facility] Comment on above: Order Comment: CLEAN CATCH Performed By: #### M 100.6796, M100.0605, L400.0001, M100.637 ####[facility] [address] [place], [address] Mucus Ql (Urine sed) 0 SEEN Normal [facility] Comment on above: Order Comment: CLEAN CATCH Performed By: #### M 100.6796, M100.0605, L400.0001, M100.637 ####[facility] [address] [place], [address] RBC 0 SEEN Normal 0-5 [facility] Comment on above: Order Comment: CLEAN CATCH Performed By: #### M 100.6796, M100.0605, L400.0001, M100.637 ####[facility] [address] [place], [address] WBC 0 SEEN Normal 0-5 [facility] Comment on above: Order Comment: CLEAN CATCH Performed By: #### M 100.6796, M100.0605, L400.0001, M100.637 ####[facility] [address] [place], [address] CBC W Auto Differential pane l (Bld)on 03-15-2024 Basophils (Bld) [#/Vol] NINF [facility] Basophils/100 WBC (Bld) 0.1 % [facility] Differential cell count method Nom (Bld) Auto [facility] Eosinophils (Bld) [#/Vol] 0.13 10*3/uL [facility] Eosinophils/100 WBC (Bld) 1.8 % [facility] Erythrocyte distribution width (RBC) [Ratio] 13.1 % 11.5 - 15.0 % [facility] Hematocrit (Bld) [Volume fraction] 39.7 % 36.0 - 46.0 % [facility] Hemoglobin (Bld) [Mass/Vol] 13.0 g/dL 11.5 - 15.5 g/dL [facility] Immature granulocytes (Bld) [#/Vol] 0.03 10*3/uL [facility] Immature granulocytes/100 WBC (Bld) 0.4 % [facility] Interpretation and review of laboratory results Abnormal [facility] Lymphocytes (Bld) [#/Vol] 1.01 10*3/uL [facility] Lymphocytes/100 WBC (Bld) 13.9 % [facility] MCH (RBC) [Entitic mass] 31.8 pg 26.0 - 34.0 pg [facility] MCHC (RBC) [Mass/Vol] 32.7 g/dL 30.5 - 36.0 g/dL [facility] MCV (RBC) [Entitic vol] 97.1 fL 80.0 - 100.0 fL [facility] Monocytes (Bld) [#/Vol] 0.48 10*3/uL [facility] Monocytes/100 WBC (Bld) 6.6 % [facility] Neutrophils (Bld) [#/Vol] 5.63 10*3/uL [facility] Neutrophils/100 WBC (Bld) 77.2 % [facility] Nucleated RBC (Bld) [#/Vol] [facility] Nucleated RBC/100 WBC (Bld) [Ratio] 0.0 % /100 WBC [facility] Platelet mean volume (Bld) [Entitic vol] 10.5 fL 9.0 - 12.7 fL [facility] Platelets (Bld) [#/Vol] 136 10*3/uL Low [facility] Comment on above: Results checked and verified.No clot detected. RBC (Bld) [#/Vol] 4.09 10*6/uL 3.90 - 5.2 0 m/uL [facility] WBC (Bld) [#/Vol] 7.29 10*3/uL [facility] ESR Westergren method (Bld) [Velocity]on 03-15-2024 ESR (Bld) [Velocity] 12 mm/h [facility] Interpretation and review of laboratory results Normal [facility] STREP A MOLECULAR (POC)on Procedural Control Valid [facility] Strep A (POCT) Negative Negative [facility] CBC W Auto Differential pane l (Bld)on 03-04-2024 Basophils (Bld) [#/Vol] [facility] Basophils/100 WBC (Bld) 0.4 % [facility] Differential cell count method Nom (Bld) Auto [facility] Eosinophils (Bld) [#/Vol] 0.17 10*3/uL [facility] Eosinophils/100 WBC (Bld) 3.1 % [facility] Erythrocyte distribution width (RBC) [Ratio] 12.9 % 11.5 - 15.0 % [facility] Hematocrit (Bld) [Volume fraction] 40.7 % 36.0 - 46.0 % [facility] Hemoglobin (Bld) [Mass/Vol] 12.9 g/dL 11.5 - 15.5 g/dL [facility] Immature granulocytes (Bld) [#/Vol] NINF [facility] Immature granulocytes/100 WBC (Bld) 0.2 % [facility] Interpretation and review of laboratory results Abnormal [facility] Lymphocytes (Bld) [#/Vol] 1.29 10*3/uL [facility] Lymphocytes/100 WBC (Bld) 23.5 % [facility] MCH (RBC) [Entitic mass] 31.5 pg 26.0 - 34.0 pg [facility] MCHC (RBC) [Mass/Vol] 31.7 g/dL 30.5 - 36.0 g/dL [facility] MCV (RBC) [Entitic vol] 99.3 fL 80.0 - 100.0 fL [facility] Monocytes (Bld) [#/Vol] 0.53 10*3/uL [facility] Monocytes/100 WBC (Bld) 9.7 % [facility] Neutrophils (Bld) [#/Vol] 3.46 10*3/uL [facility] Neutrophils/100 WBC (Bld) 63.1 % [facility] Nucleated RBC (Bld) [#/Vol] NINF [facility] Nucleated RBC/100 WBC (Bld) [Ratio] 0.0 % /100 WBC [facility] Platelet mean volume (Bld) [Entitic vol] 10.6 fL 9.0 - 12.7 fL [facility] Platelets (Bld) [#/Vol] 136 10*3/uL Low [facility] RBC (Bld) [#/Vol] 4.10 10*6/uL 3.90 - 5.2 0 m/uL [facility] WBC (Bld) [#/Vol] 5.48 10*3/uL [facility] UA DIP, URINE (POC)on 2023 BILIRUBIN UA (POCT) Negative Negative [facility] CLARITY UA (POCT) Clear [facility] COLOR UA (POCT) Yellow [facility] GLUCOSE UA (POCT) Negative Negative mg/dL [facility] Hemoglobin Ql (U) Negative Negative [facility] KETONE UA (POCT) Trace Negative mg/dL [facility] LEUKOCYTES UA (POCT) Small Abnormal Negative [facility] NITRITE UA (POCT) Negative Negative [facility] PH UA (POCT) 6.0 4.5 - 8.0 [facility] Protein Ql (U) 30 mg/dL Abnormal Negative mg/dL [facility] SPECIFIC GRAVITY UA (POCT) 1.025 1.005 - 1.030 [facility] UROBILINOGEN UA (POCT) 0.2 E.U./dL Ana l E.U./dL [facility] ROXANNE SCREENING W TOMOon 07-08 [facility] CBC W Auto Differential pane l (Bld)on 06-13-2023 Basophils (Bld) [#/Vol] <0.11 k/uL [facility] Basophils/100 WBC (Bld) 0.8 % [facility] Differential cell count method Nom (Bld) Auto [facility] Eosinophils (Bld) [#/Vol] 0.11 10*3/uL <0.46 k/uL [facility] Eosinophils/100 WBC (Bld) 4.2 % [facility] Erythrocyte distribution width (RBC) [Ratio] 13.1 % 11.5 - 15.0 % [facility] Hematocrit (Bld) [Volume fraction] 36.9 % 36.0 - 46.0 % [facility] Hemoglobin (Bld) [Mass/Vol] 12.2 g/dL 11.5 - 15.5 g/dL [facility] Immature granulocytes (Bld) [#/Vol] 0.05 10*3/uL <0.10 k/uL [facility] Immature granulocytes/100 WBC (Bld) 1.9 % [facility] Lymphocytes (Bld) [#/Vol] 0.41 10*3/uL Low 1.00 - 4.00 k/uL [facility] Lymphocytes/100 WBC (Bld) 15.7 % [facility] MCH (RBC) [Entitic mass] 32.1 pg 26.0 - 34.0 pg [facility] MCHC (RBC) [Mass/Vol] 33.1 g/dL 30.5 - 36.0 g/dL [facility] MCV (RBC) [Entitic vol] 97.1 fL 80.0 - 100.0 fL [facility] Monocytes (Bld) [#/Vol] 0.32 10*3/uL <0.87 k/uL [facility] Monocytes/100 WBC (Bld) 12.3 % [facility] Neutrophils (Bld) [#/Vol] 1.70 10*3/uL 1.45 - 7.50 k/uL [facility] Neutrophils/100 WBC (Bld) 65.1 % [facility] Nucleated RBC (Bld) [#/Vol] <0.01 k/uL [facility] Nucleated RBC/100 WBC (Bld) [Ratio] 0.0 /100 WBC [facility] Platelet mean volume (Bld) [Entitic vol] 9.6 fL 9.0 - 12.7 fL [facility] Platelets (Bld) [#/Vol] 102 10*3/uL Low 150 - 400 k/uL [facility] RBC (Bld) [#/Vol] 3.80 10*6/uL Low 3.90 - 5.2 0 m/uL [facility] WBC (Bld) [#/Vol] 2.61 10*3/uL Low 3.70 - 11.00 k/uL [facility] Comprehensive metabolic 2000 panelon 06-13-2023 Albumin [Mass/Vol] 3.8 g/dL Low 3.9 - 4.9 g/dL [facility] ALP [Catalytic activity/Vol] 68 U/L 34 - 123 U/L [facility] ALT [Catalytic activity/Vol] 6 U/L Low 7 - 38 U/L [facility] Anion gap [Moles/Vol] 10 mmol/L 9 - 18 mmol/L [facility] AST [Catalytic activity/Vol] 19 U/L 13 - 35 U/L [facility] Bilirubin [Mass/Vol] 0.3 mg/dL 0.2 - 1 .3 mg/dL [facility] Calcium [Mass/Vol] 9.3 mg/dL 8.5 - 10. 2 mg/dL [facility] Chloride [Moles/Vol] 106 mmol/L High 97 - 10 5 mmol/L [facility] CO2 [Moles/Vol] 25 mmol/L 22 - 30 mmol/L [facility] Creatinine [Mass/Vol] 0.81 mg/dL 0.58 - 0.96 mg/dL [facility] Estimated Glomerular Filtration Rate 74 mL/min/1.73m >=60 mL/min/1.73 m [facility] Glucose [Mass/Vol] 114 mg/dL High 74 - 99 mg/dL [facility] Potassium [Moles/Vol] 3.8 mmol/L 3.7 - 5.1 mmol/L [facility] Protein [Mass/Vol] 6.0 g/dL Low 6.3 - 8.0 g/dL [facility] Sodium [Moles/Vol] 141 mmol/L 136 - 144 mmol/L [facility] Urea nitrogen [Mass/Vol] 18 mg/dL 7 - 21 mg/dL [facility] Laboratory - Chemistry and C hemistry - challengeon 06-06-2023 Creatinine [Mass/Vol] 0.79 mg/dL 0.58 - 0.96 mg/dL [facility] No Panel Informationon 06-06 Estimated Glomerular Filtration Rate 76 mL/min/1.73m >=60 mL/min/1.73 m [facility] XR Cervical spine AP and Lat eral and obliqueon 04-07-2023 IMPRESSION: No fracture or malalignment Software Engineer Backend: IVAN Transcribe Date/Time: Apr 07 2023 2:18P Dictated by : SUNIL GARCÍA MD This examination was interpreted and the report reviewed and electronically signed by: SUNIL GARCÍA MD on Apr 07 2023 2:23PM EST DIVISION OF RADIOLOGY * * *Final Report* * * DATE OF EXAM: Apr 03 2023 10:30AM WOX 5311 - XR CERVICAL 4V AP/LAT/OBL / PROCEDURE REASON: multiple diagnoses * * * * Physician Interpretation * * * * X-ray cervical spine, AP, lateral and oblique views Indication: Neck pain and left arm pain Counting reference: Craniocervical junction Anatomic variant: None No acute fracture. There is good alignment of the vertebrae. Uncovertebral joint space narrowing at multiple levels. Large vertebral body osteophytes at C4-5. 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 There is no prevertebral soft tissue swelling. DIVISION OF RADIOLOGY Provider, [facility] - 04/07/2023 * * *Final Report* * * DATE OF EXAM: Apr 03 2023 10:30AM WOX 5311 - XR CERVICAL 4V AP/LAT/OBL / PROCEDURE REASON: multiple diagnoses * * * * Physician Interpretation * * * * X-ray cervical spine, AP, lateral and oblique views Indication: Neck pain and left arm pain Counting reference: Craniocervical junction Anatomic variant: None No acute fracture. There is good alignment of the vertebrae. Uncovertebral joint space narrowing at multiple levels. Large vertebral body osteophytes at C4-5. 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 There is no prevertebral soft tissue swelling. IMPRESSION IMPRESSION: No fracture or malalignment Software Engineer Backend: IVAN Transcribe Date/Time: Apr 07 2023 2:18P Dictated by : SUNIL GARCÍA MD This examination was interpreted and the report reviewed and electronically signed by: SUNIL GARCÍA MD on Apr 07 2023 2:23PM EST [facility] XR Cervical spine AP and Lat eral and obliqueOrdered By: [facility] Provider on 04-07-2023 [facility] XR Cervical spine AP and Lat eral and obliqueon 04-03-2023 Radiology Study observation (narrative) [facility] XR SHOULDER GENERAL 3V OR MO RE AP/TRUE AP/OTHER LEFTon 03-24-2023 [facility] XR Shoulder - left 3 Viewson 03-24-2023 IMPRESSION: No acute bony abnormality. Software Engineer Backend: IVAN Transcribe Date/Time: Mar 24 2023 2:10P Dictated by : YAMIL TAM MD This examination was interpreted and the report reviewed and electronically signed by: YAMIL TAM MD on Mar 24 2023 2:11PM [facility] DIVISION OF RADIOLOGY * * *Final Report* * * DATE OF EXAM: Mar 24 2023 12:21PM WOX 5252 - XR SHLDR >/=3V AP/ISIAH AP/OTHR LT / PROCEDURE REASON: Acute pain of left shoulder * * * * Physician Interpretation * * * * EXAMINATION / TECHNIQUE: XR SHLDR >/=3V AP/ISIAH AP/OTHR LT HISTORY: Acute left shoulder pain, no known injury. Acute pain of left shoulder COMPARISON: None. RESULT: No acute fracture or osseous malalignment is identified. The joint spaces are preserved. DIVISION OF RADIOLOGY Provider, [facility] - 03/24/2023 * * *Final Report* * * DATE OF EXAM: Mar 24 2023 12:21PM WOX 5252 - XR SHLDR >/=3V AP/ISIAH AP/OTHR LT / PROCEDURE REASON: Acute pain of left shoulder * * * * Physician Interpretation * * * * EXAMINATION / TECHNIQUE: XR SHLDR >/=3V AP/ISIAH AP/OTHR LT HISTORY: Acute left shoulder pain, no known injury. Acute pain of left shoulder COMPARISON: None. RESULT: No acute fracture or osseous malalignment is identified. The joint spaces are preserved. IMPRESSION IMPRESSION: No acute bony abnormality. Software Engineer Backend[facility] Transcribe Date/Time: Mar 24 2023 2:10P Dictated by : YAMIL TAM MD This examination was interpreted and the report reviewed and electronically signed by: YAMIL TAM MD on Mar 24 2023 2:11PM EST [facility] Radiology Study observation (narrative) [facility] XR Shoulder - left 3 ViewsOr dered By: Ccf Provider on 03-24-2023 [facility] CBC W Auto Differential pane l (Bld)on 12-30-2022 Basophils (Bld) [#/Vol] <0.11 k/uL [facility] Basophils/100 WBC (Bld) 0.3 % [facility] Differential cell count method Nom (Bld) Auto [facility] Eosinophils (Bld) [#/Vol] <0.46 k/uL [facility] Eosinophils/100 WBC (Bld) 0.0 % [facility] Erythrocyte distribution width (RBC) [Ratio] 13.4 % 11.5 - 15.0 % [facility] Hematocrit (Bld) [Volume fraction] 37.5 % 36.0 - 46.0 % [facility] Hemoglobin (Bld) [Mass/Vol] 12.3 g/dL 11.5 - 15.5 g/dL [facility] Immature granulocytes (Bld) [#/Vol] 0.03 10*3/uL <0.10 k/uL [facility] Immature granulocytes/100 WBC (Bld) 0.8 % [facility] Lymphocytes (Bld) [#/Vol] 0.99 10*3/uL Low 1.00 - 4.00 k/uL [facility] Lymphocytes/100 WBC (Bld) 27.4 % [facility] MCH (RBC) [Entitic mass] 31.9 pg 26.0 - 34.0 pg [facility] MCHC (RBC) [Mass/Vol] 32.8 g/dL 30.5 - 36.0 g/dL [facility] MCV (RBC) [Entitic vol] 97.4 fL 80.0 - 100.0 fL [facility] Monocytes (Bld) [#/Vol] 0.53 10*3/uL <0.87 k/uL [facility] Monocytes/100 WBC (Bld) 14.7 % [facility] Neutrophils (Bld) [#/Vol] 2.05 10*3/uL 1.45 - 7.50 k/uL [facility] Neutrophils/100 WBC (Bld) 56.8 % [facility] Nucleated RBC (Bld) [#/Vol] <0.01 k/uL [facility] Nucleated RBC/100 WBC (Bld) [Ratio] 0.0 /100 WBC [facility] Platelet mean volume (Bld) [Entitic vol] 9.8 fL 9.0 - 12.7 fL [facility] Platelets (Bld) [#/Vol] 141 10*3/uL Low 150 - 400 k/uL [facility] RBC (Bld) [#/Vol] 3.85 10*6/uL Low 3.90 - 5.2 0 m/uL [facility] WBC (Bld) [#/Vol] 3.61 10*3/uL Low 3.70 - 11.00 k/uL [facility] Comprehensive metabolic 2000 panelon 12-30-2022 Albumin [Mass/Vol] 4.0 g/dL 3.9 - 4.9 g/dL [facility] ALP [Catalytic activity/Vol] 82 U/L 34 - 123 U/L [facility] ALT [Catalytic activity/Vol] 5 U/L Low 7 - 38 U/L [facility] Anion gap [Moles/Vol] 8 mmol/L Low 9 - 18 mmol/L [facility] AST [Catalytic activity/Vol] 18 U/L 13 - 35 U/L [facility] Bilirubin [Mass/Vol] 0.3 mg/dL 0.2 - 1 .3 mg/dL [facility] Calcium [Mass/Vol] 9.6 mg/dL 8.5 - 10. 2 mg/dL [facility] Chloride [Moles/Vol] 104 mmol/L 97 - 10 5 mmol/L [facility] CO2 [Moles/Vol] 28 mmol/L 22 - 30 mmol/L [facility] Creatinine [Mass/Vol] 0.69 mg/dL 0.58 - 0.96 mg/dL [facility] Estimated Glomerular Filtration Rate 88 mL/min/1.73m >=60 mL/min/1.73 m [facility] Glucose [Mass/Vol] 101 mg/dL High 74 - 99 mg/dL [facility] Potassium [Moles/Vol] 4.2 mmol/L 3.7 - 5.1 mmol/L [facility] Protein [Mass/Vol] 6.3 g/dL 6.3 - 8.0 g/dL [facility] Sodium [Moles/Vol] 140 mmol/L 136 - 144 mmol/L [facility] Urea nitrogen [Mass/Vol] 15 mg/dL 7 - 21 mg/dL [facility] HEP B SURF AG SCRNon 023 HBV surface Ag Ql (S) Negative Negative [facility] No Panel Informationon 12-09 [facility] T4/FTI/T4Uon 11-27-2022 FTI 9.3 ug/dL 5.3 - 10.8 ug/dL [facility] T4 [Mass/Vol] 10.7 ug/dL High 5.5 - 10.2 ug/dL [facility] T4 uptake [Mass/Vol] 1.15 0.91 - 1.19 [facility] TSH BLDon 11-27-2022 TSH Qn 1.390 m[IU]/L 0.270 - 4.200 mIU/L [facility] CBC W Auto Differential pane l (Bld)on 11-25-2022 Basophils (Bld) [#/Vol] <0.11 k/uL [facility] Basophils/100 WBC (Bld) 0.5 % [facility] Differential cell count method Nom (Bld) Auto [facility] Eosinophils (Bld) [#/Vol] <0.46 k/uL [facility] Eosinophils/100 WBC (Bld) 0.0 % [facility] Erythrocyte distribution width (RBC) [Ratio] 14.4 % 11.5 - 15.0 % [facility] Hematocrit (Bld) [Volume fraction] 36.7 % 36.0 - 46.0 % [facility] Hemoglobin (Bld) [Mass/Vol] 12.2 g/dL 11.5 - 15.5 g/dL [facility] Immature granulocytes (Bld) [#/Vol] <0.10 k/uL [facility] Immature granulocytes/100 WBC (Bld) 0.3 % [facility] Lymphocytes (Bld) [#/Vol] 0.93 10*3/uL Low 1.00 - 4.00 k/uL [facility] Lymphocytes/100 WBC (Bld) 25.1 % [facility] MCH (RBC) [Entitic mass] 32.3 pg 26.0 - 34.0 pg [facility] MCHC (RBC) [Mass/Vol] 33.2 g/dL 30.5 - 36.0 g/dL [facility] MCV (RBC) [Entitic vol] 97.1 fL 80.0 - 100.0 fL [facility] Monocytes (Bld) [#/Vol] 0.59 10*3/uL <0.87 k/uL [facility] Monocytes/100 WBC (Bld) 15.9 % [facility] [#/Vol] 2.16 10*3/uL 1.45 - 7.50 k/uL [facility] Neutrophils/100 WBC (Bld) 58.2 % [facility] Nucleated RBC (Bld) [#/Vol] <0.01 k/uL [facility] Nucleated RBC/100 WBC (Bld) [Ratio] 0.0 /100 WBC [facility] Platelet mean volume (Bld) [Entitic vol] 9.8 fL 9.0 - 12.7 fL [facility] Platelets (Bld) [#/Vol] 100 10*3/uL Low 150 - 400 k/uL [facility] RBC (Bld) [#/Vol] 3.78 10*6/uL Low 3.90 - 5.2 0 m/uL [facility] WBC (Bld) [#/Vol] 3.71 10*3/uL 3.70 - 11.00 k/uL [facility] Comprehensive metabolic 2000 panelon 11-25-2022 Albumin [Mass/Vol] 3.8 g/dL Low 3.9 - 4.9 g/dL [facility] ALP [Catalytic activity/Vol] 73 U/L 34 - 123 U/L [facility] ALT [Catalytic activity/Vol] 5 U/L Low 7 - 38 U/L [facility] Anion gap [Moles/Vol] 8 mmol/L Low 9 - 18 mmol/L [facility] AST [Catalytic activity/Vol] 20 U/L 13 - 35 U/L [facility] Bilirubin [Mass/Vol] 0.3 mg/dL 0.2 - 1 .3 mg/dL [facility] Calcium [Mass/Vol] 9.8 mg/dL 8.5 - 10. 2 mg/dL [facility] Chloride [Moles/Vol] 103 mmol/L 97 - 10 5 mmol/L [facility] CO2 [Moles/Vol] 27 mmol/L 22 - 30 mmol/L [facility] Creatinine [Mass/Vol] 0.76 mg/dL 0.58 - 0.96 mg/dL [facility] Estimated Glomerular Filtration Rate 80 mL/min/1.73m >=60 mL/min/1.73 m [facility] Glucose [Mass/Vol] 99 mg/dL 74 - 99 mg/dL [facility] Potassium [Moles/Vol] 4.6 mmol/L 3.7 - 5.1 mmol/L [facility] Protein [Mass/Vol] 6.0 g/dL Low 6.3 - 8.0 g/dL [facility] Sodium [Moles/Vol] 138 mmol/L 136 - 144 mmol/L [facility] Urea nitrogen [Mass/Vol] 15 mg/dL 7 - 21 mg/dL [facility] LD LACTATE DEHYDROon 023 LDH [Catalytic activity/Vol] 173 U/L 135 - 214 U/L [facility] URIC ACID BLOODon 11-25-2022 Urate [Mass/Vol] 4.1 mg/dL 2.5 - 6.6 mg/dL [facility] CBC W Auto Differential pane l (Bld)on 10-28-2022 Basophils (Bld) [#/Vol] <0.11 k/uL [facility] Bas[facility]/100 WBC (Bld) 0.2 % [facility] Differential cell count method Nom (Bld) Auto [facility] Eosinophils (Bld) [#/Vol] 0.13 10*3/uL <0.46 k/uL [facility] Eosinophils/100 WBC (Bld) 3.2 % [facility] Erythrocyte distribution width (RBC) [Ratio] 14.6 % 11.5 - 15.0 % [facility] Hematocrit (Bld) [Volume fraction] 36.1 % 36.0 - 46.0 % [facility] Hemoglobin (Bld) [Mass/Vol] 11.7 g/dL 11.5 - 15.5 g/dL [facility] Immature granulocytes (Bld) [#/Vol] <0.10 k/uL [facility] Immature granulocytes/100 WBC (Bld) 0.5 % [facility] Lymphocytes (Bld) [#/Vol] 0.66 10*3/uL Low 1.00 - 4.00 k/uL [facility] Lymphocytes/100 WBC (Bld) 16.1 % [facility] MCH (RBC) [Entitic mass] 31.3 pg 26.0 - 34.0 pg [facility] MCHC (RBC) [Mass/Vol] 32.4 g/dL 30.5 - 36.0 g/dL [facility] MCV (RBC) [Entitic vol] 96.5 fL 80.0 - 100.0 fL [facility] Monocytes (Bld) [#/Vol] 0.43 10*3/uL <0.87 k/uL [facility] Monocytes/100 WBC (Bld) 10.5 % [facility] Neutrophils (Bld) [#/Vol] 2.84 10*3/uL 1.45 - 7.50 k/uL [facility] Neutrophils/100 WBC (Bld) 69.5 % [facility] Nucleated RBC (Bld) [#/Vol] <0.01 k/uL [facility] Nucleated RBC/100 WBC (Bld) [Ratio] 0.0 /100 WBC [facility] Platelet mean volume (Bld) [Entitic vol] 9.9 fL 9.0 - 12.7 fL [facility] Platelets (Bld) [#/Vol] 111 10*3/uL Low 150 - 400 k/uL [facility] RBC (Bld) [#/Vol] 3.74 10*6/uL Low 3.90 - 5.2 0 m/uL [facility] WBC (Bld) [#/Vol] 4.09 10*3/uL 3.70 - 11.00 k/uL [facility] Comprehensive metabolic 2000 panelon 10-28-2022 Albumin [Mass/Vol] 3.7 g/dL Low 3.9 - 4.9 g/dL [facility] ALP [Catalytic activity/Vol] 67 U/L 34 - 123 U/L [facility] ALT [Catalytic activity/Vol] Low 7 - 38 U/L [facility] Anion gap [Moles/Vol] 6 mmol/L Low 9 - 18 mmol/L [facility] AST [Catalytic activity/Vol] 20 U/L 13 - 35 U/L [facility] Bilirubin [Mass/Vol] 0.2 mg/dL 0.2 - 1 .3 mg/dL [facility] Calcium [Mass/Vol] 9.1 mg/dL 8.5 - 10. 2 mg/dL [facility] Chloride [Moles/Vol] 105 mmol/L 97 - 10 5 mmol/L [facility] CO2 [Moles/Vol] 27 mmol/L 22 - 30 mmol/L [facility] Creatinine [Mass/Vol] 0.56 mg/dL Low 0.58 - 0.96 mg/dL [facility] Estimated Glomerular Filtration Rate 94 mL/min/1.73m >=60 mL/min/1.73 m [facility] Glucose [Mass/Vol] 95 mg/dL 74 - 99 mg/dL [facility] Potassium [Moles/Vol] 4.0 mmol/L 3.7 - 5.1 mmol/L [facility] Protein [Mass/Vol] 5.6 g/dL Low 6.3 - 8.0 g/dL [facility] Sodium [Moles/Vol] 138 mmol/L 136 - 144 mmol/L [facility] Urea nitrogen [Mass/Vol] 12 mg/dL 7 - 21 mg/dL [facility] LD LACTATE DEHYDROon 023 LDH [Catalytic activity/Vol] 166 U/L 135 - 214 U/L [facility] URIC ACID BLOODon 10-28-2022 Urate [Mass/Vol] 3.4 mg/dL 2.5 - 6.6 mg/dL [facility] CBC W Auto Differential pane l (Bld)on 09-24-2022 Basophils (Bld) [#/Vol] <0.11 k/uL [facility] Basophils/100 WBC (Bld) 0.3 % [facility] Differential cell count method Nom (Bld) Auto [facility] Eosinophils (Bld) [#/Vol] 0.23 10*3/uL <0.46 k/uL [facility] Eosinophils/100 WBC (Bld) 7.0 % [facility] Erythrocyte distribution width (RBC) [Ratio] 14.0 % 11.5 - 15.0 % [facility] Hematocrit (Bld) [Volume fraction] 37.5 % 36.0 - 46.0 % [facility] Hemoglobin (Bld) [Mass/Vol] 12.5 g/dL 11.5 - 15.5 g/dL [facility] Immature granulocytes (Bld) [#/Vol] <0.10 k/uL [facility] Immature granulocytes/100 WBC (Bld) 0.3 % [facility] Lymphocytes (Bld) [#/Vol] 0.43 10*3/uL Low 1.00 - 4.00 k/uL [facility] Lymphocytes/100 WBC (Bld) 13.1 % [facility] MCH (RBC) [Entitic mass] 31.6 pg 26.0 - 34.0 pg [facility] MCHC (RBC) [Mass/Vol] 33.3 g/dL 30.5 - 36.0 g/dL [facility] MCV (RBC) [Entitic vol] 94.9 fL 80.0 - 100.0 fL [facility] Monocytes (Bld) [#/Vol] 0.42 10*3/uL <0.87 k/uL [facility] Monocytes/100 WBC (Bld) 12.8 % [facility] [#/Vol] 2.19 10*3/uL 1.45 - 7.50 k/uL [facility] Neutrophils/100 WBC (Bld) 66.5 % [facility] Nucleated RBC (Bld) [#/Vol] <0.01 k/uL [facility] Nucleated RBC/100 WBC (Bld) [Ratio] 0.0 /100 WBC [facility] Platelet mean volume (Bld) [Entitic vol] 9.6 fL 9.0 - 12.7 fL [facility] Platelets (Bld) [#/Vol] 109 10*3/uL Low 150 - 400 k/uL [facility] RBC (Bld) [#/Vol] 3.95 10*6/uL 3.90 - 5.2 0 m/uL [facility] WBC (Bld) [#/Vol] 3.29 10*3/uL Low 3.70 - 11.00 k/uL [facility] Comprehensive metabolic 2000 panelon 09-24-2022 Albumin [Mass/Vol] 3.7 g/dL Low 3.9 - 4.9 g/dL [facility] ALP [Catalytic activity/Vol] 73 U/L 34 - 123 U/L [facility] ALT [Catalytic activity/Vol] 6 U/L Low 7 - 38 U/L [facility] Anion gap [Moles/Vol] 8 mmol/L Low 9 - 18 mmol/L [facility] AST [Catalytic activity/Vol] 21 U/L 13 - 35 U/L [facility] Bilirubin [Mass/Vol] 0.3 mg/dL 0.2 - 1 .3 mg/dL [facility] Calcium [Mass/Vol] 9.7 mg/dL 8.5 - 10. 2 mg/dL [facility] Chloride [Moles/Vol] 104 mmol/L 97 - 10 5 mmol/L [facility] CO2 [Moles/Vol] 27 mmol/L 22 - 30 mmol/L [facility] Creatinine [Mass/Vol] 0.63 mg/dL 0.58 - 0.96 mg/dL [facility] Estimated Glomerular Filtration Rate 91 mL/min/1.73m >=60 mL/min/1.73 m [facility] Glucose [Mass/Vol] 99 mg/dL 74 - 99 mg/dL [facility] Potassium [Moles/Vol] 4.0 mmol/L 3.7 - 5.1 mmol/L [facility] Protein [Mass/Vol] 5.7 g/dL Low 6.3 - 8.0 g/dL [facility] Sodium [Moles/Vol] 139 mmol/L 136 - 144 mmol/L [facility] Urea nitrogen [Mass/Vol] 11 mg/dL 7 - 21 mg/dL [facility] Laboratory - Chemistry and C hemistry - challengeon 09-24-2022 LDH [Catalytic activity/Vol] 184 U/L 135 - 214 U/L [facility] Urate [Mass/Vol] 4.2 mg/dL 2.5 - 6.6 mg/dL [facility] No Panel Informationon 09-24 [facility] Absolute lymphocyte counton 08-04-2022 Lymphocytes Auto (Unsp spec) [#/Vol] 0.57 10*3/uL 0.83-4.51 [facility] Work Phone: Basophil percentageon 2021 Basophils/100 WBC (Bld) 0.3 % 0-1 [facility] Work Phone: Bilirubin [Mass/Vol] 0.20 mg/dL 0.20-1.00 [facility] Work Phone: Comment on above: For patients on eltr ombopag therapy, use of Dimension [place] TBIL is not recommended. Chloride [Moles/Vol] 110 mmol/L 98-107 [facility] Work Phone: Eosinophils/100 WBC (Bld) 6.2 % 0-5 [facility] Work Phone: Glucose [Mass/Vol] 111 mg/dL 74-106 [facility] Work Phone: [phone] Comment on above: Fasting Glucose resu lt from 100 to 125 mg/dL suggests IMPAIRED HOMEOSTASIS per A.D.A. criteria. Neutrophils (Bld) [#/Vol] 2.0 10*3/uL 2.0-7.7 [facility] Work Phone: Neutrophils/100 WBC (Bld) 62.9 % 47-70 [facility] Work Phone: [phone] Potassium [Moles/Vol] 3.4 mmol/L 3.5-5.1 [facility] Work Phone: [phone] Protein [Mass/Vol] 5.2 g/dL 6.4-8.2 [facility] Work Phone: Sodium [Moles/Vol] 143 mmol/L 136-145 [facility] Work Phone: WBC (Bld) [#/Vol] 3.2 10*3/uL 4.4-11.0 [facility] Work Phone: Blood erythrocytes count (nu mber/volume)on 08-04-2022 RBC (Bld) [#/Vol] 3.38 10*6/uL 4.2-5.4 [facility] Work Phone: Blood hemoglobin measurement (mass/volume)on 08-04-2022 Hemoglobin (Bld) [Mass/Vol] 10.4 g/dL 12.0-15.0 [facility] Work Phone: Blood lymphocytes/100 leukoc yteson 08-04-2022 Lymphocytes/100 WBC (Bld) 17.6 % 19-41 [facility] Work Phone: [phone] Blood monocytes/100 leukocyt eson 08-04-2022 Monocytes/100 WBC (Bld) 12.4 % 0-10 [facility] Work Phone: Blood platelet adequacy dete ction by light microscopyon 08-04-2022 Platelets LM Ql (Bld) A[facility]QUATE ADEQ [facility] Work Phone: Blood platelet mean volumeon 08-04-2022 Platelet mean volume (Bld) [Entitic vol] 9.8 fL 6.2-12.0 [facility] Work Phone: Determination of erythrocyte mean corpuscular volume (MCV)on 08-04-2022 MCV (RBC) [Entitic vol] 95.6 fL 81-99 [facility] Work Phone: Hematocrit Auto (Bld) [Volum e fraction]on 08-04-2022 Hematocrit (Bld) [Volume fraction] 32.3 % 37-47 [facility] Work Phone: Laboratory - Chemistry and C hemistry - challengeon 08-04-2022 ALP [Catalytic activity/Vol] 49 U/L 45-117 [facility] Work Phone: ALT [Catalytic activity/Vol] 10 U/L 13-56 [facility] Work Phone: CO2 [Moles/Vol] 26.0 mmol/L 21.0-32.0 [facility] Work Phone: Globulin (S) [Mass/Vol] 2.9 g/dL 2.2-4.2 [facility] Work Phone: Urea nitrogen/Creatinine [Mass ratio] 25.9 mg/mg 10-20 [facility] Work Phone: Laboratory - Hematology and Cell countson 08-04-2022 Erythrocyte distribution width (RBC) [Entitic vol] 49.6 fL 35.1-43.9 [facility] Work Phone: Erythrocyte distribution width (RBC) [Ratio] 14.1 % 11.6-14.6 [facility] Work Phone: Immature granulocytes/100 WBC (Bld) 0.600 % 0.0-0.9 [facility] Work Phone: Comment on above: IG% - Immature Granu locytes (promyelocytes, myelocytes and metamyelocytes) > 1% indicates that a LEFT SHIFT is Present. MCH (RBC) [Entitic mass] 30.8 pg 27.0-32.0 [facility] Work Phone: Nucleated RBC/100 WBC (Bld) [Ratio] 0 % 0-5 [facility] Work Phone: MCHC Auto (RBC) [Mass/Vol]on 08-04-2022 MCHC (RBC) [Mass/Vol] 32.2 g/dL 32-36 [facility] Work Phone: No Panel Informationon 08-04 Estimated Creatinine Clearance Calc 36.67 ml/min [facility] Work Phone: Estimated GFR (MDRD) Amer 129 mL/min >60 [facility] Work Phone: Comment on above: GFR Calc Estimated GFR (MDRD) Non-Af Amer 107 mL/min >60 [facility] Work Phone: Comment on above: Non- GFR Calc Platelets bldon 08-04-2022 Platelets (Bld) [#/Vol] 130 10*3/uL 150-450 [facility] Work Phone: RBC morphologyon 08-04-2022 RBC morphology finding Nom (Bld) NORM C+C NORMAL NORM C&C [facility] Work Phone: Review by pathologiston 07-23 Pathologist review Sulaiman (Unsp spec) [Interp] May foll [facility] Work Phone: Serum or plasma albumin cirilo urement (mass/volume)on 08-04-2022 Albumin [Mass/Vol] 2.3 g/dL 3.2-5.0 [facility] Work Phone: Serum or plasma albumin/glob ulin mass ratioon 08-04-2022 Albumin/Globulin [Mass ratio] 0.8 {ratio} 0.9-2.4 [facility] Work Phone: Serum or plasma calcium cirilo urement (mass/volume)on 08-04-2022 Calcium [Mass/Vol] 8.6 mg/dL 8.5-10.1 [facility] Work Phone: Serum or plasma creatinine m easurement (mass/volume)on 08-04-2022 Creatinine [Mass/Vol] 0.58 mg/dL 0.55-1.02 [facility] Work Phone: Comment on above: The validity of the calculated GFR & GFRAA in patients over 70 years has not been determined. Clinical correlation is essential. Serum or plasma urea nitroge n measurement (mass/volume)on 08-04-2022 Urea nitrogen [Mass/Vol] 15 mg/dL 7-18 [facility] Work Phone: Thin prep Papanicolaou smear with manual screeningon 08-04-2022 Thin prep Papanicolaou smear with manual screening 17 U/L 15-37 [facility] Work Phone: Thin prep Papanicolaou smear with manual screening 7 5-15 [facility] Work Phone: Blood manual differential co mment interpretation (narrative result)on 08-03-2022 Manual differential comment Sulaiman (Bld) [Interp] SCANNED [facility] Work Phone: Comment on above: LYMPHOPENIA NOTED Sky 08-01-2022 CNPN Telephone (CHRCEU) LISA UP ([id number]) 1945 F Date Time Provider Department 08/01/22 CELESTE CLAUDIO During your visit today, we recorded the following information about you: Chinyere Shea RN 08/05/2022 2:10 PM Signed Call to patient, she is ok to travel to [place] or [facility] to get Twin. She is aware that someone else will be calling to set this up. Sravanthi Shea RN Allergies As of Date: 08/01/2022 Noted Allergy Reaction ADHESIVE 06/10/2022 2 - Rash Comments: Blisters and dermatitis from op site dressing and tape COVID-19 VACCINE, MRNA, [id number]*06/29/2021 10 - Anaphylaxis ERYTHROMYCIN 06/08/2013 2 - Rash 8 - GI Upset Comments: Urticarial rash, seen in [place] [facility] LATEX 02/13/2010 7 - Swelling LISINOPRIL 12/25/2017 7 - Swelling NAFCILLIN 10/11/2018 9 - Itching Comments: 06/29/21 negative penicillin skin testing. Passed oral amoxicillin challenge. NORVASC (AMLODIPINE BESYLATE) 02/19/2018 7 - Swelling WASPS 07/29/2017 1 - Mental Status Change 2 - Rash Date Reviewed: 07/23/2022 Reviewed by: Marquise Law Ma - Fully Assessed Reason for Visit: Appointment [186] Prescriptions as of 08/06/2022 - carvedilol (COREG) 12.5 mg tablet Take 1 tablet by mouth twice daily. - gabapentin (NEURONTIN) 300 mg capsule Take 1 capsule by mouth every 8 hours for 90 days. - allopurinol (ZYLOPRIM) 300 mg tablet Take 1 tablet by mouth once daily. - ZOLMitriptan (ZOMIG) 5 mg tablet Take 1 tablet by mouth as needed. - OTC PRODUCT Super Snooze with Melatonin: Take one capsule by mouth at bedtime as needed. - lidocaine-prilocaine (EMLA) 2.5-2.5 % cream Apply to affected area as needed. - levothyroxine (SYNTHROID) 75 mcg tablet Take 1 tablet by mouth daily before breakfast. - apixaban (ELIQUIS) 5 mg tab(s) Take 1 tablet by mouth twice daily. - potassium chloride (K-TAB) 10 mEq tablet Take 1 tablet by mouth twice daily. - famotidine (PEPCID) 20 mg tablet Take 1 tablet by mouth twice daily as needed. - triamterene-hydroCHLOR Othiazide (MAXZIDE-25MG) 37.5-25 mg per tablet Take 1 tablet by mouth once daily. - prochlorperazine (COMPAZINE) 10 mg tablet Take 1 tablet by mouth every 6 hours as needed. - HYDROcodone-acetaminop hen (NORCO) 5-325 mg per tablet Take 1 tablet by mouth twice daily as needed for pain. - acetaminophen 650 mg CR tablet Take 650 mg by mouth every 8 hours as needed. - omeprazole (PRILOSEC) 20 mg capsule Take 1 capsule by mouth twice daily. 1/2 hr before meal. - EPINEPHrine (EPIPEN) 0.3 mg/0.3 mL auto-injector Use as directed - multivitamin/iron/foli c acid (CENTRUM ULTRA WOMEN'S ORAL) Take 1 tablet by mouth once daily. Meds Comments as of 05/28/2021: [facility] [id number] [employer] Multi-vitamin Mail service [employer] 04/08/18 Patient stopped taking Coreg or Clonidine - took amlodipine 5mg BID 04/07 and 04/08 from old rx. 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] 06/07/2005 Allergic Rhinitis [J30.9] 06/12/2009 Primary localized osteoarthrosis, lower leg [M1*02/13/2010 12/11/2010 Dizziness and giddiness [R42] 02/26/2010 12/11/2010 Headache [R51] 02/26/2010 Nontoxic multinodular goiter [E04.2] 01/01/2011 Goiter, unspecified [E04.9] 12/11/2010 01/15/2012 Depressive disorder, not elsewhere classified [*01/15/2012 Mixed incontinence urge and stress [N39.46] 12/19/2010 Cholelithiasis [K80.20] 06/17/2012 06/24/2013 Candidiasis, intertrigo [B37.2] 06/08/2013 10/16/2021 Tinnitus of both ears [H93.13] 08/17/2013 Borderline glaucoma with ocular hypertension - *05/13/2014 08/16/2015 Glaucomatous atrophy (cupping) of optic disc - *05/13/2014 08/16/2015 Other and combined forms of senile cataract - B*05/13/2014 08/16/2015 Tear film insufficiency, unspecified - Both Eye*05/13/2014 01/03/2016 Back pain [M54.9] 04/06/2015 Ocular hypertension, 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 Normal [facility] Laboratory - Chemistry and C hemistry - challengeon 07-30-2022 Lipase [Catalytic activity/Vol] 124 U/L 73-393 [facility] Work Phone: No Panel Informationon 07-30 Troponin I High Sensitivity 6 pg/mL 3.0-54.0 [facility] Work Phone: Comment on above: Please Note: New Sophie t Units and Gender Specific Reference Ranges. For more information see Policy Stat Procedure [place] High Sensitivity Troponin (TNIH) and attachments. CBC W Auto Differential pane l (Bld)on 07-23-2022 Basophils (Bld) [#/Vol] <0.11 k/uL [facility] Basophils/100 WBC (Bld) 0.6 % [facility] Differential cell count method Nom (Bld) Auto [facility] Eosinophils (Bld) [#/Vol] 0.30 10*3/uL <0.46 k/uL [facility] Eosinophils/100 WBC (Bld) 9.1 % [facility] Erythrocyte distribution width (RBC) [Ratio] 13.9 % 11.5 - 15.0 % [facility] Hematocrit (Bld) [Volume fraction] 38.3 % 36.0 - 46.0 % [facility] Hemoglobin (Bld) [Mass/Vol] 12.6 g/dL 11.5 - 15.5 g/dL [facility] Immature granulocytes (Bld) [#/Vol] <0.10 k/uL [facility] Immature granulocytes/100 WBC (Bld) 0.6 % [facility] Lymphocytes (Bld) [#/Vol] 0.37 10*3/uL Low 1.00 - 4.00 k/uL [facility] Lymphocytes/100 WBC (Bld) 11.2 % [facility] MCH (RBC) [Entitic mass] 30.7 pg 26.0 - 34.0 pg [facility] MCHC (RBC) [Mass/Vol] 32.9 g/dL 30.5 - 36.0 g/dL [facility] MCV (RBC) [Entitic vol] 93.4 fL 80.0 - 100.0 fL [facility] Monocytes (Bld) [#/Vol] 0.23 10*3/uL <0.87 k/uL [facility] Monocytes/100 WBC (Bld) 7.0 % [facility] Neutrophils (Bld) [#/Vol] 2.35 10*3/uL 1.45 - 7.50 k/uL [facility] Neutrophils/100 WBC (Bld) 71.5 % [facility] Nucleated RBC (Bld) [#/Vol] <0.01 k/uL [facility] Nucleated RBC/100 WBC (Bld) [Ratio] 0.0 /100 WBC [facility] Platelet mean volume (Bld) [Entitic vol] 9.5 fL 9.0 - 12.7 fL [facility] Platelets (Bld) [#/Vol] 94 10*3/uL Low 150 - 400 k/uL [facility] RBC (Bld) [#/Vol] 4.10 10*6/uL 3.90 - 5.2 0 m/uL [facility] WBC (Bld) [#/Vol] 3.29 10*3/uL Low 3.70 - 11.00 k/uL [facility] Comprehensive metabolic 2000 panelon 07-23-2022 Albumin [Mass/Vol] 3.8 g/dL Low 3.9 - 4.9 g/dL [facility] ALP [Catalytic activity/Vol] 73 U/L 34 - 123 U/L [facility] ALT [Catalytic activity/Vol] Low 7 - 38 U/L [facility] Anion gap [Moles/Vol] 10 mmol/L 9 - 18 mmol/L [facility] AST [Catalytic activity/Vol] 19 U/L 13 - 35 U/L [facility] Bilirubin [Mass/Vol] 0.4 mg/dL 0.2 - 1 .3 mg/dL [facility] Calcium [Mass/Vol] 9.3 mg/dL 8.5 - 10. 2 mg/dL [facility] Chloride [Moles/Vol] 104 mmol/L 97 - 10 5 mmol/L [facility] CO2 [Moles/Vol] 25 mmol/L 22 - 30 mmol/L [facility] Creatinine [Mass/Vol] 0.69 mg/dL 0.58 - 0.96 mg/dL [facility] Estimated Glomerular Filtration Rate 89 mL/min/1.73m >=60 mL/min/1.73 m [facility] Glucose [Mass/Vol] 121 mg/dL High 74 - 99 mg/dL [facility] Potassium [Moles/Vol] 3.9 mmol/L 3.7 - 5.1 mmol/L [facility] Protein [Mass/Vol] 6.1 g/dL Low 6.3 - 8.0 g/dL [facility] Sodium [Moles/Vol] 139 mmol/L 136 - 144 mmol/L [facility] Urea nitrogen [Mass/Vol] 11 mg/dL 7 - 21 mg/dL [facility] LD LACTATE DEHYDROon 022 LDH [Catalytic activity/Vol] 178 U/L 135 - 214 U/L [facility] URIC ACID BLOODon 07-23-2022 Urate [Mass/Vol] 4.1 mg/dL 2.5 - 6.6 mg/dL [facility] ALLIED HEALTHon 06-05-2022 ALLIED HEALTH HNO ID: [id number] Author: FAITH Helms Service: Radiology Author Type: Technologist Type: Allied Health Filed: 06/05/2022 2:16 PM Note Text: Radiology Service Progress Note PATIENT NAME: Lisa Up DATE OF SERVICE: June 05, 2022 TIME: 2:15 PM PATIENT IDENTITY VERIFICATION COMPLETED USING TWO (2) IDENTIFIERS: Name and Date of confirmed by patient verbally and Name and Date of confirmed by identification band. FALL SCREENING: Has the patient had 2 falls in the last year or 1 fall with injury or currently using an Ambulatory Assistive Device (Walker, Cane, Wheelchair, Crutches, etc.)? Inpatient: Screened on floor PATIENT GENDER DATA: Female. status: : No status: NO. PATIENT RELEVANT IMPLANT DATA REVIEWED: Not Applicable RADIOLOGY DEPARTMENT: General X-ray: Exam(s) Completed: Chest X-Ray PERIPHERAL IV DATA: Not applicable SIGNED BY: FAITH Helms June 05, 2022 2:15 PM [facility] ANES POSTPROC EVALon 022 ANES POSTPROC EVAL HNO ID: [id number] Author: Diony Lopez MD Service: ? 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 Post Anesthesia Patient Status Patient Evaluation: bedside. Anticipated Disposition: phase 2 then home. Neurological Status: aware and responsive. Pulmonary Status: breathing comfortably on room air Airway Control: returned to baseline unsupported. Cardiovascular Status: stable. Pain Management: clinically adequate Postoperative Hydration: acceptable. Intraoperative Events: no significant anesthesia events Post Operative Nausea/Vomiting Status: no significant post operative nausea or vomiting Anesthetic Observations: Recommendation: continue current plan of care. Anesthesia Observations No Documentation SIGNATURE: Diony Lopez MD PATIENT NAME: Lisa Up DATE: June 05, 2022 TIME: 4:18 PM CSN: [id number] [facility] ANES PRE-OPon 06-05-2022 ANES PRE-OP HNO ID: [id number] Author: Diony Lopez MD Service: ? Author Type: Anesthesiologist Type: Anesthesia Preprocedure Evaluation Filed: 06/05/2022 11:59 AM Note Text: ANESTHESIOLOGY DAY OF SURGERY NOTE : 1945 Procedure Information Date/Time: 06/05/22 1305 Procedure: INSERTION CATHETER PORT-A-CATH WITH C-ARM (Right) Location: [place] [facility] [place] Surgeons: Zeny Crowder MD Estimated body mass index is 40.42 kg/m? as calculated from the following: Height as of this encounter: 157.5 cm (5' 2). Weight as of this encounter: 100.2 kg (221 lb). Most recent hematocrit and potassium results: Hematocrit 38.7 05/15/2022 Potassium 4.3 05/01/2022 Relevant Problems ANESTHESIA (+) CHRISTIANA on CPAP (Pt not using her CPAP. ) CARDIO (+) Bilateral carotid artery stenosis (+) Chronic migraine without aura, with intractable migraine, so stated, with status migrainosus (+) Essential hypertension (+) Intractable chronic migraine without aura and without status migrainosus (-) Angina at rest (HCC) (-) Angina of effort (HCC) ENDO (+) Hypothyroid GI (+) GERD (gastroesophageal reflux disease) -RENAL (+) CKD (chronic kidney disease) NEURO-PSYCH (+) Chronic daily headache (+) Chronic migraine without aura, with intractable migraine, so stated, with status migrainosus (+) Chronic tension-type headache, intractable (+) History of DVT (deep vein thrombosis) (+) Intractable chronic migraine without aura and without status migrainosus PULMONARY (+) CHRISTIANA on CPAP (Pt not using her CPAP. ) (-) Asthma Other (+) Lymphadenopathy, generalized I - PHYSICAL EVALUATION AIRWAY Patient intubated: No. Tracheostomy tube not present Mallampati: II. TM distance: >3 FB. Neck ROM: full ROM without neurological symptoms. Mouth opening: adequate. Short neck: no. Thick neck: no DENTAL Dental findings: teeth intact. II - ANESTHESIA PLAN ASA Score: 3 Anesthetic Plan: MAC The patient is not a current smoker. NPO Status: adequate Beta Lenore Administration of chronic beta lenore medication not planned. Monitoring plan: standard ASA. Postoperative analgesic plan: other. Informed Consent Anesthetic risks, benefits, alternatives, personnel and consent discussed: yes. Patient / Responsible Constitution Party agrees to proceed: yes Patient / Surrogate agrees to blood products: Yes DNR status not reviewed with patient and/or family prior to surgery. Significant changes in the patient condition since the History and Physical, not otherwise documented in primary service progress note: no. Potential Anesthesia issues that may suggest increased risk of complications or contraindication to planned procedure: none. Vitals Value Taken Time BP 189/85 06/05/22 1150 Pulse 64 06/05/22 1150 Resp 18 06/05/22 1150 Temp 36.8 ?C (98.2 ?F) 06/05/22 1150 SpO2 98 % 06/05/22 1150 Facility-Administered Medications as of 06/05/2022 Medication Dose Route Frequency - sodium chloride 0.9 % (flush) 2-10 mL (BD POSIFLUSH) 2-10 mL INTRAVENOUS q 12 H - lactated ringers iv infusion 30 mL/hr INTRAVENOUS CONTINUOUS Outpatient Medications as of 06/05/2022 Medication Sig - levothyroxine (SYNTHROID) 75 mcg tablet Take 1 tablet by mouth daily before breakfast. - potassium chloride (K-TAB) 10 mEq tablet Take 1 tablet by mouth twice daily. - famotidine (PEPCID) 20 mg tablet Take 1 tablet by mouth twice daily as needed. - triamterene-hydroCHLOR Othiazide (MAXZIDE-25MG) 37.5-25 mg per tablet Take 1 tablet by mouth once daily. - carvedilol (COREG) 12.5 mg tablet Take 1 tablet by mouth twice daily. - gabapentin (NEURONTIN) 300 mg capsule Take 1 capsule by mouth every 8 hours for 90 days. - HYDROcodone-acetaminop hen (NORCO) 5-325 mg per tablet Take 1 tablet by mouth twice daily as needed for pain. - acetaminophen 650 mg CR tablet Take 650 mg by mouth every 8 hours as needed. - hydrALAZINE (APRESOLINE) 25 mg tablet Take 1 tablet by mouth every 12 hours. - omeprazole (PRILOSEC) 20 mg capsule Take 1 capsule by mouth twice daily. 1/2 hr before meal. - apixaban (ELIQUIS) 5 mg tab(s) Take 1 tablet by mouth twice daily. - prochlorperazine (COMPAZINE) 10 mg tablet Take 1 tablet by mouth every 6 hours as needed. - EPINEPHrine (EPIPEN) 0.3 mg/0.3 mL auto-injector Use as directed - multivitamin/iron/foli c acid (CENTRUM ULTRA WOMEN'S ORAL) Take by mouth. I have interviewed and examined the patient. I have reviewed the medical record and/or the pre-anesthesia evaluation, pertinent labs, and test results. This contains updated information obtained within 48 hours of Surgery/Procedure. 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 Lisa is currently scheduled to undergo chemotherapy and needs vascular access for treatment. The patient denies a prior history of central venous access. The patient is right hand dominant. The patient is being seen by me today at the request of Dr. 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 PAST MEDICAL HISTORY PAST MEDICAL HISTORY Diagnosis Date ANXIETY STATE NOS 06/07/2005 Arthritis Cancer (HCC) Carpal tunnel syndrome 06/07/2005 Cholelithiasis 06/17/2012 DEPRESSIVE DISORDER NEC 06/07/2005 Diverticulosis of colon (without mention of hemorrhage) Dizziness and giddiness 02/26/2010 GENERAL OSTEOARTHROSIS 06/07/2005 Goiter, unspecified 12/11/2010 Headache(784.0) 02/26/2010 Chronic. 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 Ramírez, severe PAST SURGICAL HISTORY PAST SURGICAL HISTORY Procedure Laterality Date ABDOMINAL SURGERY HX ARTHRP KNE CONDYLEANDPLATU MEDIALANDLAT COMPARTMENTS February2010 Knee replacement, total, Left ARTHRP KNE CONDYLEANDPLATU MEDIALANDLAT COMPARTMENTS 07/2010 Knee replacement, total, Right BACK SURGERY HX COLONOSCOPY FLX DX W/COLLJ SPEC WHEN PFRMD 06/05/2011 Colonoscopy COLONOSCOPY FLX DX W/COLLJ SPEC WHEN PFRMD N/A 12/04/2016 ESOPHAGOGASTRODUODENOS COPY TRANSORAL DIAGNOSTIC N/A 12/04/2016 DEVORA FILTER 2019 JOINT REPLACEMENT HX NEPHRECTOMY PARTIAL 1986 Nephrectomy, partial left (benign) PAST SURGICAL HISTORY OF 06/2018 lumbar burger with wound infection TONSILLECTOMY HX TOTAL ABDOMINAL HYSTERECT W/WO RMVL TUBE OVARY 1985 Hysterectomy, NEISHA VAGINAL HYSTERECTOMY CURRENT MEDICATIONS Current Outpatient Medications Medication Sig Dispense Refill [START ON 06/16/2022] allopurinol (ZYLOPRIM) 300 mg tablet Take 1 tablet by mouth once daily. 30 tablet 2 prochlorperazine (COMPAZINE) 10 mg tablet Take 1 tablet by mouth every 6 hours as needed. 30 tablet 2 HYDROcodone-acetaminop hen (NORCO) 5-325 mg per tablet Take 1 tablet by mouth twice daily as needed for pain. acetaminophen 650 mg CR tablet Take 650 mg by mouth every 8 hours as needed. hydrALAZINE (APRESOLINE) 25 mg tablet Take 1 tablet by mouth every 12 hours. 180 tablet 1 omeprazole (PRILOSEC) 20 mg capsule Take 1 capsule by mouth twice daily. 1/2 hr before meal. 60 capsule 5 EPINEPHrine (EPIPEN) 0.3 mg/0.3 mL auto-injector Use as directed 2 Each 1 multivitamin/iron/foli c acid (CENTRUM ULTRA WOMEN'S ORAL) Take by mouth. levothyroxine (SYNTHROID) 75 mcg tablet Take 1 tablet by mouth daily before breakfast. 90 tablet 1 apixaban (ELIQUIS) 5 mg tab(s) Take 1 tablet by mouth twice daily. 180 tablet 3 potassium chloride (K-TAB) 10 mEq tablet Take 1 tablet by mouth twice daily. 180 tablet 3 famotidine (PEPCID) 20 mg tablet Take 1 tablet by mouth twice daily as needed. 180 tablet 1 triamterene-hydroCHLOR Othiazide (MAXZIDE-25MG) 37.5-25 mg per tablet Take 1 tablet by mouth once daily. 90 tablet 0 carvedilol (COREG) 12.5 mg tablet Take 1 tablet by mouth twice daily. 180 tablet 1 gabapentin (NEURONTIN) 300 mg capsule Take 1 capsule by mouth every 8 hours for 90 days. 90 capsule 2 No current facility-administered medications for this visit. ALLERGIES: Covid-19 Vaccine, Mrna, [id number], Lnp-S (Moderna); Erythromycin; Latex; Lisinopril; Nafcillin; Norvasc [Amlodipine Besylate]; and Wasps PERSONAL HISTORY: SOCIAL HISTORY Social History Tobacco Use Smoking status: Never Smokeless tobacco: Never Vaping Use Vaping Use: Never used Substance Use Topics Alcohol use: No Drug use: No FAMILY HISTORY: FAMILY HISTORY FAMILY HISTORY Problem Relation Age of Onset Heart Mother Cancer Mother lung Heart Father other (Other) Father Heart Brother [place], aneurysm Migraines Daughter Macular Degen Maternal Aunt REVIEW OF SYMPTOMS: The review of systems data was entered by the nurse and reviewed by mn Nursing Notes: Viv Lo RN 05/28/2022 3:01 PM Signed REVIEW OF SYSTEMS: General: The patient NOTES fatigue, denies weight loss, denies weight gain, denies feeling hot, and denies feelings of co (more content not included)... Normal [facility] OPERATIVE NOon 09-14-2022 OPERATIVE NO HNO ID: [id number] Author: Zeny Crowder MD Service: General Surgery Author Type: Physician Type: Operative Report Filed: 06/05/2022 1:44 PM Note Text: OPERATIVE/PROCEDURE REPORT LOG ID: [id number] SURGERY/PROCEDURE DATE: 06/05/2022 INCISION/PROCEDURE START TIME: 1:02 PM INCISION CLOSE/PROCEDURE END TIME: 1:34 PM SURGEON(S)/PROCEDURALI ST(S) AND CRATE TIER(S): Surgeon(s) and Role: * Zeny Crowder MD - Primary Physician Pad Machine Operator: Kori Beyer PA-C SURGERY/PROCEDURE(S): Placement of a right internal jugular PowerPort ANESTHESIA: Monitored Anesthesia Care SURGERY/PROCEDURE DETAILS: Patient was brought into the operating room. Placed in the supine position. Under excellent MAC anesthesia I ultrasound the right neck identified the internal jugular vein and marked the neck and chest appropriately. The neck and chest were then sterilely prepped and draped in usual fashion local was injected into the neck Seldinger's technique was used to gain access to the internal jugular vein. Guidewire was placed over the needle the needle was removed fluoroscopy was used to confirm proper placement of the guidewire. I injected local on the chest incision was made electrocautery was used to create a pocket for the port. Skin federico was made in the neck dilator and sheath were placed over the guidewire removing the dilator and guidewire. Single-lumen catheter was placed over the sheath the sheath was removed.. Fluoroscopy was used to confirm proper length the catheter irrigated and flushed well. I tunneled from the pocket created over the collarbone into the neck brought the catheter down. Cut the catheter placed the locking hub on the catheter and the port onto the catheter secured the tube with a locking hub. It flushed and irrigated well was flushed with 5 cc of hep flush. The port was then secured into the pocket with 2 sutures of 2-0 Prolene. Skin incisions were brought together with deep dermal stitches of 3-0 Vicryl. Dermabond was applied. Sterile dressings were applied. The patient tolerated the procedure well. Portable chest x-ray was ordered. Kori Beyer PA-C was my unit assistant. She assisted with retraction, visualization and performed skin closure. No additional surgeons or qualified residents were available. PRE-OP/PRE-PROCEDURE DIAGNOSIS: Grade 2 follicular lymphoma POST-OP/POST-PROCEDURE DIAGNOSIS: Same as Preop ESTIMATED BLOOD LOSS: < 5 mls SPECIMENS: None IMPLANTABLE DEVICES: PowerPort DRAINS: None COMPLICATIONS: None PARTICIPATION IN SURGERY/PROCEDURE: I/primary surgeon/proceduralist performed the procedure with assistance. SIGNATURE: Zeny Crowder III, MD PATIENT NAME: Lisa Up DATE: June 05, 2022 TIME: 1:40 PM [facility] XR CHEST 1V FRONTAL PORTon 0 06-05-2022 XR CHEST 1V FRONTAL PORT * * *Final Report* * * DATE OF EXAM: Jun 05 2022 2:11PM MDX [id number] - XR CHEST 1V FRONTAL PORT / PROCEDURE REASON: Evaluate tube, line or lead position * * * * Physician Interpretation * * * * EXAMINATION: CHEST RADIOGRAPH (PORTABLE SINGLE VIEW AP) Exam Date/Time: 06/05/2022 2:11 PM CLINICAL HISTORY: Evaluate tube, line or lead position MQ: XCPR_5 Comparison: 04/22/2022 RESULT: Lines, tubes, and devices: Central venous catheter with its tip projecting over the mid SVC. Lungs and pleura: Well expanded and clear Cardiomediastinal silhouette: Stable cardiomediastinal silhouette. Other: . IMPRESSION: Catheter with its tip in the mid SVC. No pneumothorax. 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SCB Transcribe Date/Time: Jun 05 2022 2:38P Dictated by : EDWIN GAYTAN MD This examination was interpreted and the report reviewed and electronically signed by: EDWIN GAYTAN MD on Jun 05 2022 2:41PM EST [id number] [facility] SURGICAL PATHOLOGYon 05-15- 022 Case Report Surgical Pathology Report Case: [id number] Authorizing Provider: Zeny Crowder MD Collected: 05/10/2022 09:58 AM Ordering Location: General Surgery Received: 05/10/2022 04:21 PM Pathologist: Yady Chopra MD Specimen: LYMPH NODE BREAST, LEFT AXILLARY [facility] Clinical History abnormal CT scan [facility] Diagnosis Comment This is a 76-year-ol d female with a history of follicular lymphoma diagnosed April 2021, currently on observation. 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 There is no evidence of a diffuse large B-cell lymphoma in this biopsy. Laboratory Developed Test (LDT) Disclaimer: Performance characteristics of immunohistochemical, immunofluorescent and chromogenic in-situ hybridization tests have been determined by the performing laboratory within [facility] s [facility] Pathology and Laboratory Medicine [place] ([facility], [facility], [facility] or [facility]) in a manner consistent with CLIA requirements. One or more of these tests have not been cleared or approved by the FDA. [facility] is regulated under CLIA as qualified to perform high-complexity testing. These tests are used for clinical purposes. They should not be regarded as investigational or for research. Positive and negative controls stain appropriately. [facility] FINAL DIAGNOSIS A. 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 - See comment. ABO 05/15/2022 [facility] Gross Description A. LYMPH NODE BREAST Received in formalin labeled as ``left axillary lymph node are multiple segments of cylindrical tissue aggregating to 2.0 x 0.4 x 0.2 cm, yellow and of a soft consistency. The specimen was removed from the patient at no time given on 05/10/2022. On the same day, the specimen was placed in formalin at no time given. Totally submitted in formalin in one cassette. EJL May 13, 2022 2:40 PM Gross examination performed at [facility], [address] [place] [address] [facility] Microscopic Description Sections demonst rate cores of lymphoid tissue partially effaced by a nodular lymphoid infiltrate, composed of predominantly small lymphocytes with cleaved nuclei (centrocytes) with fewer centroblasts (less than 15 centroblasts/HPF). Immunohistochemical stains were performed. The atypical cells in the follicular proliferation are positive for CD20, BCL-2, BCL-6, and CD10, but negative for CD5 and cyclin D1. CD21 highlights retained follicular direct cell meshworks in association with the follicular proliferation. Ki-67 proliferation index is low (less than 10%). CD3 highlights small T cells within the interfollicular regions. Focal portions of the cores contain normal B-cell follicles with germinal centers, which are positive for CD10 and BCL-6, and appropriately negative for BCL-2. [facility] Performing Lab Diagnostic interpretation performed at [facility], [address] [id number] Global Director Air And Climate Change: Umberto Dyer M.D. [facility] UA DIP, URINE (POC)on 2021 BILIRUBIN UA (POCT) Negative Negative [facility] CLARITY UA (POCT) [facility] COLOR UA (POCT) Yellow [facility] GLUCOSE UA (POCT) Negative Negative mg/dL [facility] HEMOGLOBIN/BLOOD UA (POCT) Moderate Abnormal Negative [facility] KETONE UA (POCT) Negative Negative mg/dL [facility] LEUKOCYTES UA (POCT) Small Abnormal [facility] NITRITE UA (POCT) Negative Negative [facility] PH UA (POCT) 7.0 4.5 - 8.0 [facility] Protein Ql (U) Trace Abnormal Negative mg/dL [facility] SPECIFIC GRAVITY UA (POCT) 1.010 1.005 - 1.030 [facility] UROBILINOGEN UA (POCT) 0.2 E.U./dL Ana l E.U./dL [facility] US LYMPH NODE BIOPSY AXILLA LEFT (POC) SURG USE ONLYon 05-10-2022 [facility] XR Chest PA and Lateralon IMPRESSION: No acute radiographic abnormality. Software Engineer Backend: IVAN Transcribe Date/Time: Apr 23 2022 4:08P Dictated by : RICARDO HDEZ MD This examination was interpreted and the report reviewed and electronically signed by: RICARDO HDEZ MD on Apr 23 2022 4:12PM EST [email or web address] E_DIVISION OF RADIOLOGY * * *Final Report* * * DATE OF EXAM: Apr 22 2022 4:40PM WOX [id number] - XR CHEST 2V FRONTAL/LAT / PROCEDURE REASON: multiple diagnoses * * * * Physician Interpretation * * * * EXAMINATION: CHEST RADIOGRAPH (2 VIEW FRONTAL & LATERAL) CLINICAL HISTORY: SOB (shortness of breath) Bronchitis MQ: XC2_6 EXAM DATE/TIME: 04/22/2022 4:40 PM COMPARISON: Chest x-ray on 06/08/2021 RESULT: Lines, tubes, and devices: None. Lungs and pleura: There is a calcified granuloma overlying the right upper lung. No consolidation. No lung mass. No pleural effusion. No pneumothorax. Cardiomediastinal silhouette: The cardiac silhouette and mediastinal contour are within normal limits. Bones and soft tissues: The spine shows degenerative changes. [email or web address] E_DIVISION OF RADIOLOGY Provider, Keven dorsey [place] - 04/23/2022 * * *Final Report* * * DATE OF EXAM: Apr 22 2022 4:40PM WOX [id number] - XR CHEST 2V FRONTAL/LAT / PROCEDURE REASON: multiple diagnoses * * * * Physician Interpretation * * * * EXAMINATION: CHEST RADIOGRAPH (2 VIEW FRONTAL & LATERAL) CLINICAL HISTORY: SOB (shortness of breath) Bronchitis MQ: XC2_6 EXAM DATE/TIME: 04/22/2022 4:40 PM COMPARISON: Chest x-ray on 06/08/2021 RESULT: Lines, tubes, and devices: None. Lungs and pleura: There is a calcified granuloma overlying the right upper lung. No consolidation. No lung mass. No pleural effusion. No pneumothorax. Cardiomediastinal silhouette: The cardiac silhouette and mediastinal contour are within normal limits. Bones and soft tissues: The spine shows degenerative changes. IMPRESSION IMPRESSION: No acute radiographic abnormality. Software Engineer Backend: IVAN Transcribe Date/Time: Apr 23 2022 4:08P Dictated by : RICARDO HDEZ MD This examination was interpreted and the report reviewed and electronically signed by: RICARDO HDEZ MD on Apr 23 2022 4:12PM EST [facility] XR Chest PA and LateralOrder ed By: Cc Provider on 04-23-2022 [facility] XR Chest PA and Lateralon Radiology Study observation (narrative) Gavin [place] Clinical Summary: [facility] 12-12-2021 [facility] OP Visit Invalid Interpretation Code [facility] Work Phone: Office Visit: Postop - subse quent visit, Rm: 2on 12-12-2021 NEGATED: Highlighted rowxray history of the lumbar spine on 10/03/2021 at [facility] Invalid Interpretation Code [facility] Work Phone: CBC AND DIFFERENTIALon 09-10 Basophils (Bld) [#/Vol] 0.00 10*3/uL Normal 0.00 - 0.1 0 [facility] Comment on above: Performed By: #### C BCDF #### [address] [address] Basophils/100 WBC (Bld) 0.4 % Normal 0.0 - 2.0 [facility] Comment on above: Performed By: #### C BCDF #### [address] [address] Eosinophils (Bld) [#/Vol] 0.40 10*3/uL Normal 0.00 - 0.40 [facility] Comment on above: Performed By: #### C BCDF #### [address] [address] Eosinophils/100 WBC (Bld) 8.1 % Normal 0.0 - 6.0 [facility] Comment on above: Performed By: #### C BCDF #### [address] [address] Erythrocyte distribution width (RBC) [Ratio] 14.4 % Normal 11.5 - 14.5 [facility] Comment on above: Performed By: #### C BCDF #### [address] [address] Hematocrit (Bld) [Volume fraction] 34.4 % Low 36.0 - 46.0 [facility] Comment on above: Performed By: #### C BCDF #### [address] [address] Hemoglobin (Bld) [Mass/Vol] 11.1 g/dL Low 12.0 - 16.0 [facility] Comment on above: Performed By: #### C BCDF #### [address] [address] Lymphocytes (Bld) [#/Vol] 1.50 10*3/uL Normal 0.80 - 3.00 [facility] Comment on above: Performed By: #### C BCDF #### [address] [address] Lymphocytes/100 WBC (Bld) 31.6 % Normal 13.0 - 44.0 [facility] Comment on above: Performed By: #### C BCDF #### [address] [address] MCHC (RBC) [Mass/Vol] 32.2 g/dL Normal 32.0 - 36.0 [facility] Comment on above: Performed By: #### C BCDF #### [address] [address] MCV (RBC) [Entitic vol] 92 fL Normal 80 - 100 [facility] Comment on above: Performed By: #### C BCDF #### [address] [address] Monocytes (Bld) [#/Vol] 0.50 10*3/uL Normal 0.05 - 0.8 0 [facility] Comment on above: Performed By: #### C BCDF #### [address] [address] Monocytes/100 WBC (Bld) 10.6 % Normal 2.0 - 10.0 [facility] Comment on above: Performed By: #### C BCDF #### [address] [address] Neutrophils (Bld) [#/Vol] 2.30 10*3/uL Normal 1.60 - 5.50 [facility] Comment on above: Result Comment: Perc ent differential counts (%) should be interpreted in the context of the absolute cell counts (cells/L). Performed By: #### C BCDF #### [address] [address] Neutrophils/100 WBC (Bld) 49.3 % Normal 40.0 - 80.0 [facility] Comment on above: Performed By: #### C BCDF #### [address] [address] Platelets (Bld) [#/Vol] 136 10*3/uL Low 150 - 450 [facility] Comment on above: Performed By: #### C BCDF #### [address] [address] RBC 3.74 x10E12/L Low 4.00 - 5.20 [facility] Comment on above: Performed By: #### C BCDF #### [address] [address] WBC (Bld) [#/Vol] 4.6 10*3/uL Normal 4.4 - 11.3 [facility] Comment on above: Performed By: #### C BCDF #### [address] [address] COMPREHENSIVE PANELon 09-10- 2020 Albumin [Mass/Vol] 3.2 g/dL Low 3.4 - 5.0 [facility] Comment on above: Performed By: #### C MP #### [address] [address] ALP [Catalytic activity/Vol] 53 U/L Normal 33 - 136 [facility] Comment on above: Performed By: #### C MP #### [address] [address] ALT [Catalytic activity/Vol] 4 U/L Low 7 - 45 [facility] Comment on above: Result Comment: Misty ents treated with Sulfasalazine may generate falsely decreased results for ALT. Performed By: #### C MP #### [address] [address] Anion gap [Moles/Vol] 9 mmol/L Low 10 - 20 [facility] Comment on above: Performed By: #### C MP #### [address] [address] AST [Catalytic activity/Vol] 17 U/L Normal 9 - 39 [facility] Comment on above: Performed By: #### C MP #### [address] [address] Bilirubin [Mass/Vol] 0.4 mg/dL Normal 0.0 - 1.2 [facility] Comment on above: Performed By: #### C MP #### [address] [address] Calcium [Mass/Vol] 8.9 mg/dL Normal 8.6 - 10.3 [facility] Comment on above: Performed By: #### C MP #### [address] [address] Chloride [Moles/Vol] 106 mmol/L Normal 98 - 107 [facility] Comment on above: Performed By: #### C MP #### [address] [address] Creatinine [Mass/Vol] 0.59 mg/dL Normal 0.50 - 1.05 [facility] Comment on above: Performed By: #### C MP #### [address] [address] GFR- AM. >60 Normal >60 [facility] Comment on above: Result Comment: CALC ULATIONS OF ESTIMATED GFR ARE PERFORMED USING THE MDRD STUDY EQUATION FOR THE IDMS-TRACEABLE CREATININE METHODS. CLIN CHEM 2007;53:766-72 Performed By: #### C MP #### [address] [address] GFR-NON AM. >60 Normal >60 [facility] Comment on above: Performed By: #### C MP #### [address] [address] Glucose [Mass/Vol] 93 mg/dL Normal 74 - 99 [facility] Comment on above: Performed By: #### C MP #### [address] [address] HCO3 (Bld) [Moles/Vol] 28 mmol/L Normal 21 - 32 [facility] Comment on above: Performed By: #### C MP #### [address] [address] Potassium [Moles/Vol] 3.4 mmol/L Low 3.5 - 5.3 [facility] Comment on above: Performed By: #### C MP #### [address] [address] Protein [Mass/Vol] 5.6 g/dL Low 6.4 - 8.2 [facility] Comment on above: Performed By: #### C MP #### [address] [address] Sodium [Moles/Vol] 140 mmol/L Normal 136 - 145 [facility] Comment on above: Performed By: #### C MP #### [address] [address] Urea nitrogen [Mass/Vol] 10 mg/dL Normal 6 - 23 [facility] Comment on above: Performed By: #### C MP #### [address] [address] SEDIMENTATION RATE, ERYTHROC YTEon 09-10-2021 SEDIMENTATION RATE, ERYTHROCYTE 17 mm/h Normal 0 - 30 [facility] Comment on above: Performed By: #### E SRWS #### [address] [address] CBC AND DIFFERENTIALon 09-03 Basophils (Bld) [#/Vol] 0.00 10*3/uL Normal 0.00 - 0.1 0 [facility] Comment on above: Order Comment: [facility] Performed By: #### C BCDF #### [address] [address] Basophils/100 WBC (Bld) 0.4 % Normal 0.0 - 2.0 [facility] Comment on above: Order Comment: [facility] Performed By: #### C BCDF #### [address] [address] Eosinophils (Bld) [#/Vol] 0.40 10*3/uL Normal 0.00 - 0.40 [facility] Comment on above: Order Comment: [facility] Performed By: #### C BCDF #### [address] [address] Eosinophils/100 WBC (Bld) 8.7 % Normal 0.0 - 6.0 [facility] Comment on above: Order Comment: [facility] Performed By: #### C BCDF #### [address] [address] Erythrocyte distribution width (RBC) [Ratio] 14.0 % Normal 11.5 - 14.5 [facility] Comment on above: Order Comment: [facility] Performed By: #### C BCDF #### [address] [address] Hematocrit (Bld) [Volume fraction] 33.2 % Low 36.0 - 46.0 [facility] Comment on above: Order Comment: [facility] Performed By: #### C BCDF #### [address] [address] Hemoglobin (Bld) [Mass/Vol] 10.9 g/dL Low 12.0 - 16.0 [facility] Comment on above: Order Comment: [facility] Performed By: #### C BCDF #### [address] [address] Lymphocytes (Bld) [#/Vol] 1.20 10*3/uL Normal 0.80 - 3.00 [facility] Comment on above: Order Comment: [facility] Performed By: #### C BCDF #### [address] [address] Lymphocytes/100 WBC (Bld) 26.5 % Normal 13.0 - 44.0 [facility] Comment on above: Order Comment: [facility] Performed By: #### C BCDF #### [address] [address] MCHC (RBC) [Mass/Vol] 32.7 g/dL Normal 32.0 - 36.0 [facility] Comment on above: Order Comment: [facility] Performed By: #### C BCDF #### [address] [address] MCV (RBC) [Entitic vol] 92 fL Normal 80 - 100 [facility] Comment on above: Order Comment: [facility] Performed By: #### C BCDF #### [address] [place] [address] Monocytes (Bld) [#/Vol] 0.50 10*3/uL Normal 0.05 - 0.8 0 [facility] Comment on above: Order Comment: [facility] Performed By: #### C BCDF #### [address] [address] Monocytes/100 WBC (Bld) 11.0 % Normal 2.0 - 10.0 [facility] Comment on above: Order Comment: [facility] Performed By: #### C BCDF #### [address] [address] Neutrophils (Bld) [#/Vol] 2.40 10*3/uL Normal 1.60 - 5.50 [facility] Comment on above: Order Comment: [facility] Result Comment: Perc ent differential counts (%) should be interpreted in the context of the absolute cell counts (cells/L). Performed By: #### C BCDF #### [address] [address] Neutrophils/100 WBC (Bld) 53.4 % Normal 40.0 - 80.0 [facility] Comment on above: Order Comment: [facility] Performed By: #### C BCDF #### [address] [address] NUCLEATED RBC 0.1 /100 WBC Normal [facility] Comment on above: Order Comment: [facility] Performed By: #### C BCDF #### [address] [address] Platelets (Bld) [#/Vol] 133 10*3/uL Low 150 - 450 [facility] Comment on above: Order Comment: [facility] Performed By: #### C BCDF #### [address] [address] RBC 3.62 x10E12/L Low 4.00 - 5.20 [facility] Comment on above: Order Comment: [facility] Performed By: #### C BCDF #### [place] [id number] WBC (Bld) [#/Vol] 4.5 10*3/uL Normal 4.4 - 11.3 [facility] Comment on above: Order Comment: [facility] Performed By: #### C BCDF #### [place] [address] COMPREHENSIVE PANELon 2020 Albumin [Mass/Vol] 3.1 g/dL Low 3.4 - 5.0 [facility] Comment on above: Order Comment: [facility] Performed By: #### C MP #### [place] [id number] ALP [Catalytic activity/Vol] 57 U/L Normal 33 - 136 [facility] Comment on above: Order Comment: [facility] Performed By: #### C MP #### [place] [address] ALT [Catalytic activity/Vol] 4 U/L Low 7 - 45 [facility] Comment on above: Order Comment: [facility] Result Comment: Misty ents treated with Sulfasalazine may generate falsely decreased results for ALT. Performed By: #### C MP #### [place] [address] Anion gap [Moles/Vol] 9 mmol/L Low 10 - 20 [facility] Comment on above: Order Comment: [facility] Performed By: #### C MP #### [place] [address] AST [Catalytic activity/Vol] 15 U/L Normal 9 - 39 [facility] Comment on above: Order Comment: [facility] Performed By: #### C MP #### [place] [id number] Bilirubin [Mass/Vol] 0.4 mg/dL Normal 0.0 - 1.2 [facility] Comment on above: Order Comment: [facility] Performed By: #### C MP #### [place] [id number] Calcium [Mass/Vol] 8.9 mg/dL Normal 8.6 - 10.3 [facility] Comment on above: Order Comment: [facility] Performed By: #### C MP #### [address] [address] Chloride [Moles/Vol] 107 mmol/L Normal 98 - 107 [facility] Comment on above: Order Comment: [facility] Performed By: #### C MP #### [address] [address] Creatinine [Mass/Vol] 0.57 mg/dL Normal 0.50 - 1.05 [facility] Comment on above: Order Comment: [facility] Performed By: #### C MP #### [place] [id number] GFR- AM. >60 Normal >60 [facility] Comment on above: Order Comment: [facility] Result Comment: CALC ULATIONS OF ESTIMATED GFR ARE PERFORMED USING THE MDRD STUDY EQUATION FOR THE IDMS-TRACEABLE CREATININE METHODS. CLIN CHEM 2007;53:766-72 Performed By: #### C MP #### [place] [id number] GFR-NON AM. >60 Normal >60 [facility] Comment on above: Order Comment: [facility] Performed By: #### C MP #### [address] [address] Glucose [Mass/Vol] 121 mg/dL High 74 - 99 [facility] Comment on above: Order Comment: [facility] Performed By: #### C MP #### [address] [address] HCO3 (Bld) [Moles/Vol] 26 mmol/L Normal 21 - 32 [facility] Comment on above: Order Comment: [facility] Performed By: #### C MP #### [address] [address] Potassium [Moles/Vol] 3.4 mmol/L Low 3.5 - 5.3 [facility] Comment on above: Order Comment: [facility] Performed By: #### C MP #### [address] [address] Protein [Mass/Vol] 5.5 g/dL Low 6.4 - 8.2 [facility] Comment on above: Order Comment: [facility] Performed By: #### C MP #### [address] [address] Sodium [Moles/Vol] 139 mmol/L Normal 136 - 145 [facility] Comment on above: Order Comment: [facility] Performed By: #### C MP #### [address] [address] Urea nitrogen [Mass/Vol] 12 mg/dL Normal 6 - 23 [facility] Comment on above: Order Comment: [facility] Performed By: #### C MP #### [address] [address] SEDIMENTATION RATE, ERYTHROC YTEon 09-03-2021 SEDIMENTATION RATE, ERYTHROCYTE 23 mm/h Normal 0 - 30 [facility] Comment on above: Order Comment: [facility] Performed By: #### E SRWS #### [address] [address] CBC AND DIFFERENTIALon 08-27 Basophils (Bld) [#/Vol] 0.00 10*3/uL Normal 0.00 - 0.1 0 [facility] Comment on above: Performed By: #### C BCDF #### [address] [address] Basophils/100 WBC (Bld) 0.6 % Normal 0.0 - 2.0 [facility] Comment on above: Performed By: #### C BCDF #### [address] [address] Eosinophils (Bld) [#/Vol] 0.20 10*3/uL Normal 0.00 - 0.40 [facility] Comment on above: Performed By: #### C BCDF #### [address] [address] Eosinophils/100 WBC (Bld) 3.5 % Normal 0.0 - 6.0 [facility] Comment on above: Performed By: #### C BCDF #### [address] [address] Erythrocyte distribution width (RBC) [Ratio] 14.4 % Normal 11.5 - 14.5 [facility] Comment on above: Performed By: #### C BCDF #### [address] [address] Hematocrit (Bld) [Volume fraction] 33.2 % Low 36.0 - 46.0 [facility] Comment on above: Performed By: #### C BCDF #### [address] [address] Hemoglobin (Bld) [Mass/Vol] 10.8 g/dL Low 12.0 - 16.0 [facility] Comment on above: Performed By: #### C BCDF #### [address] [address] Lymphocytes (Bld) [#/Vol] 1.40 10*3/uL Normal 0.80 - 3.00 [facility] Comment on above: Performed By: #### C BCDF #### [address] [address] Lymphocytes/100 WBC (Bld) 28.3 % Normal 13.0 - 44.0 [facility] Comment on above: Performed By: #### C BCDF #### [address] [address] MCHC (RBC) [Mass/Vol] 32.4 g/dL Normal 32.0 - 36.0 [facility] Comment on above: Performed By: #### C BCDF #### [address] [address] MCV (RBC) [Entitic vol] 92 fL Normal 80 - 100 [facility] Comment on above: Performed By: #### C BCDF #### [address] [address] Monocytes (Bld) [#/Vol] 0.40 10*3/uL Normal 0.05 - 0.8 0 [facility] Comment on above: Performed By: #### C BCDF #### [address] [address] Monocytes/100 WBC (Bld) 7.3 % Normal 2.0 - 10.0 [facility] Comment on above: Performed By: #### C BCDF #### [address] [address] Neutrophils (Bld) [#/Vol] 3.10 10*3/uL Normal 1.60 - 5.50 [facility] Comment on above: Result Comment: Perc ent differential counts (%) should be interpreted in the context of the absolute cell counts (cells/L). Performed By: #### C BCDF #### [address] [address] Neutrophils/100 WBC (Bld) 60.3 % Normal 40.0 - 80.0 [facility] Comment on above: Performed By: #### C BCDF #### [address] [address] NUCLEATED RBC 0.1 /100 WBC Normal [facility] Comment on above: Performed By: #### C BCDF #### [address] [address] Platelets (Bld) [#/Vol] 113 10*3/uL Low 150 - 450 [facility] Comment on above: Performed By: #### C BCDF #### [address] [address] RBC 3.62 x10E12/L Low 4.00 - 5.20 [facility] Comment on above: Performed By: #### C BCDF #### [address] [address] WBC (Bld) [#/Vol] 5.1 10*3/uL Normal 4.4 - 11.3 [facility] Comment on above: Performed By: #### C BCDF #### [address] [address] COMPREHENSIVE PANELon 2020 Albumin [Mass/Vol] 3.0 g/dL Low 3.4 - 5.0 [facility] Comment on above: Performed By: #### C MP #### [address] [address] ALP [Catalytic activity/Vol] 54 U/L Normal 33 - 136 [facility] Comment on above: Performed By: #### C MP #### [address] [address] ALT [Catalytic activity/Vol] 5 U/L Low 7 - 45 [facility] Comment on above: Result Comment: Misty ents treated with Sulfasalazine may generate falsely decreased results for ALT. Performed By: #### C MP #### [address] [address] Anion gap [Moles/Vol] 9 mmol/L Low 10 - 20 [facility] Comment on above: Performed By: #### C MP #### [address] [address] AST [Catalytic activity/Vol] 16 U/L Normal 9 - 39 [facility] Comment on above: Performed By: #### C MP #### [address] [address] Bilirubin [Mass/Vol] 0.4 mg/dL Normal 0.0 - 1.2 [facility] Comment on above: Performed By: #### C MP #### [address] [address] Calcium [Mass/Vol] 8.9 mg/dL Normal 8.6 - 10.3 [facility] Comment on above: Performed By: #### C MP #### [address] [address] Chloride [Moles/Vol] 107 mmol/L Normal 98 - 107 [facility] Comment on above: Performed By: #### C MP #### [address] [address] Creatinine [Mass/Vol] 0.62 mg/dL Normal 0.50 - 1.05 [facility] Comment on above: Performed By: #### C MP #### [address] [address] GFR- AM. >60 Normal >60 [facility] Comment on above: Result Comment: CALC ULATIONS OF ESTIMATED GFR ARE PERFORMED USING THE MDRD STUDY EQUATION FOR THE IDMS-TRACEABLE CREATININE METHODS. CLIN CHEM 2007;53:766-72 Performed By: #### C MP #### [address] [address] GFR-NON AM. >60 Normal >60 [facility] Comment on above: Performed By: #### C MP #### [address] [address] Glucose [Mass/Vol] 89 mg/dL Normal 74 - 99 [facility] Comment on above: Performed By: #### C MP #### [address] [address] HCO3 (Bld) [Moles/Vol] 28 mmol/L Normal 21 - 32 [facility] Comment on above: Performed By: #### C MP #### [address] [address] Potassium [Moles/Vol] 3.7 mmol/L Normal 3.5 - 5.3 [facility] Comment on above: Performed By: #### C MP #### [address] [address] Protein [Mass/Vol] 5.5 g/dL Low 6.4 - 8.2 [facility] Comment on above: Performed By: #### C MP #### [address] [address] Sodium [Moles/Vol] 140 mmol/L Normal 136 - 145 [facility] Comment on above: Performed By: #### C MP #### [address] [address] Urea nitrogen [Mass/Vol] 9 mg/dL Normal 6 - 23 [facility] Comment on above: Performed By: #### C MP #### [address] [address] SEDIMENTATION RATE, ERYTHROC YTEon 08-27-2021 SEDIMENTATION RATE, ERYTHROCYTE 21 mm/h Normal 0 - 30 [facility] Comment on above: Performed By: #### E SRWS #### [address] [address] CBC W Auto Differential pane l (Bld)on 07-11-2021 Basophils (Bld) [#/Vol] 10*3/uL Normal <0.11 [facility] Comment on above: Order Comment: Speci men Type: BLOOD SPECIMEN Performed By: #### 5 7021-8 #### [facility] CLIA [id number] [address] [place] [address] [place] Basophils/100 WBC (Bld) 0.2 % Normal [facility] Comment on above: Order Comment: Speci men Type: BLOOD SPECIMEN Performed By: #### 5 7021-8 #### [facility] CLIA [id number] [address] [place] [address] [place] Differential cell count method Nom (Bld) Auto Normal [facility] Comment on above: Order Comment: Speci men Type: BLOOD SPECIMEN Performed By: #### 5 7021-8 #### [facility] CLIA [id number] [address] [place] [address] [place] Eosinophils (Bld) [#/Vol] 0.19 10*3/uL Normal <0.46 [facility] Comment on above: Order Comment: Speci men Type: BLOOD SPECIMEN Performed By: #### 5 7021-8 #### [facility] CLIA [id number] [address] [facility] [place] [address] [place] Eosinophils/100 WBC (Bld) 3.4 % Normal [facility] Comment on above: Order Comment: Speci men Type: BLOOD SPECIMEN Performed By: #### 5 7021-8 #### [facility] CLIA [id number] [address] [facility] [place] [address] [place] Erythrocyte distribution width (RBC) [Ratio] 14.0 % Normal 11.5-15.0 [facility] Comment on above: Order Comment: Speci men Type: BLOOD SPECIMEN Performed By: #### 5 7021-8 #### [facility] CLIA [id number] [address] [place] [address] [facility] Hematocrit (Bld) [Volume fraction] 38.6 % Normal 36.0-46.0 [facility] Comment on above: Order Comment: Speci men Type: BLOOD SPECIMEN Performed By: #### 5 7021-8 #### [facility] CLIA [id number] [address] [place] [address] [place] [facility] Hemoglobin (Bld) [Mass/Vol] 12.0 g/dL Normal 11.5-15.5 [facility] Comment on above: Order Comment: Speci men Type: BLOOD SPECIMEN Performed By: #### 5 7021-8 #### [facility] CLIA [id number] [address] [place] [address] [place] Lymphocytes (Bld) [#/Vol] 2.57 10*3/uL Normal 1.00-4.00 [facility] Comment on above: Order Comment: Speci men Type: BLOOD SPECIMEN Performed By: #### 5 7021-8 #### [facility] CLIA [id number] [address] [place] [address] [facility] Lymphocytes/100 WBC (Bld) 46.6 % Normal [facility] Comment on above: Order Comment: Speci men Type: BLOOD SPECIMEN Performed By: #### 5 7021-8 #### [facility] CLIA [id number] [address] [place] [address] [facility] [place] MCH (RBC) [Entitic mass] 30.6 pg Normal 26.0-34.0 [facility] Comment on above: Order Comment: Speci men Type: BLOOD SPECIMEN Performed By: #### 5 7021-8 #### [facility] CLIA [id number] [address] [place] [address] [place] MCHC (RBC) [Mass/Vol] 31.1 g/dL Normal 30.5-36.0 [facility] Comment on above: Order Comment: Speci men Type: BLOOD SPECIMEN Performed By: #### 5 7021-8 #### [facility] CLIA [id number] [address] [place] [address] [facility] [place] MCV (RBC) [Entitic vol] 98.5 fL Normal 80.0-100.0 [facility] Comment on above: Order Comment: Speci men Type: BLOOD SPECIMEN Performed By: #### 5 7021-8 #### [facility] CLIA [id number] [address] [place] [address] [facility] [place] Monocytes (Bld) [#/Vol] 0.52 10*3/uL Normal <0.87 [facility] Comment on above: Order Comment: Speci men Type: BLOOD SPECIMEN Performed By: #### 5 7021-8 #### [facility] CLIA [id number] [address] [place] [address] [place] Monocytes/100 WBC (Bld) 9.4 % Normal [facility] Comment on above: Order Comment: Speci men Type: BLOOD SPECIMEN Performed By: #### 5 7021-8 #### [facility] CLIA [id number] [address] [place] [address] [place] Neutrophils (Bld) [#/Vol] 2.23 10*3/uL Normal 1.45-7.50 [facility] Comment on above: Order Comment: Speci men Type: BLOOD SPECIMEN Performed By: #### 5 7021-8 #### [facility] CLIA [id number] [address] [place] [address] [facility] [place] Neutrophils/100 WBC (Bld) 40.4 % Normal [facility] Comment on above: Order Comment: Speci men Type: BLOOD SPECIMEN Performed By: #### 5 7021-8 #### [facility] CLIA [id number] [address] [place] [address] [facility] [place] Platelet mean volume (Bld) [Entitic vol] 11.0 fL Normal 9.0-12.7 [facility] Comment on above: Order Comment: Speci men Type: BLOOD SPECIMEN Performed By: #### 5 7021-8 #### [facility] CLIA [id number] [address] [place] [address] [place] Platelets (Bld) [#/Vol] 138 10*3/uL Low 150-400 [facility] Comment on above: Order Comment: Speci men Type: BLOOD SPECIMEN Performed By: #### 5 7021-8 #### [facility] CLIA [id number] [address] [place] [address] [place] RBC (Bld) [#/Vol] 3.92 10*6/uL Normal 3.90-5.20 [facility] Comment on above: Order Comment: Speci men Type: BLOOD SPECIMEN Performed By: #### 5 7021-8 #### [facility] CLIA [id number] [address] [place], [place] [address] [place] [address] [place] WBC (Bld) [#/Vol] 5.52 10*3/uL Normal 3.70-11.00 [facility] Comment on above: Order Comment: Speci men Type: BLOOD SPECIMEN Performed By: #### 5 7021-8 #### [facility] CLIA [id number] [address] [place] [address] [facility] [place] CRP SerPl-mCncon 07-11-2021 CRP [Mass/Vol] 0.3 mg/dL Normal <0.9 [facility] Comment on above: Order Comment: Speci men Type: BLOOD SPECIMEN Performed By: #### 1 988-5 #### [facility] CLIA [id number] [address] [place] ESR Westergren method (Bld) [Velocity]on 07-11-2021 ESR (Bld) [Velocity] 23 mm/h High 0-20 [facility] Comment on above: Order Comment: Speci men Type: BLOOD SPECIMEN Performed By: #### 4 537-7 #### [facility] [place] [id number] [address] [place] [address] [facility] CBC AND DIFFERENTIALon 06-21 Basophils (Bld) [#/Vol] 0.00 10*3/uL Normal 0.00 - 0.1 0 [facility] Comment on above: Performed By: #### C BCDF #### [address] [address] Basophils/100 WBC (Bld) 0.4 % Normal 0.0 - 2.0 [facility] Comment on above: Performed By: #### C BCDF #### [address] [address] Eosinophils (Bld) [#/Vol] 0.10 10*3/uL Normal 0.00 - 0.40 [facility] Comment on above: Performed By: #### C BCDF #### [address] [address] Eosinophils/100 WBC (Bld) 1.6 % Normal 0.0 - 6.0 [facility] Comment on above: Performed By: #### C BCDF #### [address] [address] Erythrocyte distribution width (RBC) [Ratio] 15.0 % High 11.5 - 14.5 [facility] Comment on above: Performed By: #### C BCDF #### [address] [address] Hematocrit (Bld) [Volume fraction] 36.4 % Normal 36.0 - 46.0 [facility] Comment on above: Performed By: #### C BCDF #### [address] [address] Hemoglobin (Bld) [Mass/Vol] 11.8 g/dL Low 12.0 - 16.0 [facility] Comment on above: Performed By: #### C BCDF #### [address] [address] Lymphocytes (Bld) [#/Vol] 2.00 10*3/uL Normal 0.80 - 3.00 [facility] Comment on above: Performed By: #### C BCDF #### [address] [address] Lymphocytes/100 WBC (Bld) 35.7 % Normal 13.0 - 44.0 [facility] Comment on above: Performed By: #### C BCDF #### [address] [address] MCHC (RBC) [Mass/Vol] 32.3 g/dL Normal 32.0 - 36.0 [facility] Comment on above: Performed By: #### C BCDF #### [address] [address] MCV (RBC) [Entitic vol] 95 fL Normal 80 - 100 [facility] Comment on above: Performed By: #### C BCDF #### [address] [address] Monocytes (Bld) [#/Vol] 0.50 10*3/uL Normal 0.05 - 0.8 0 [facility] Comment on above: Performed By: #### C BCDF #### [address] [address] Monocytes/100 WBC (Bld) 8.4 % Normal 2.0 - 10.0 [facility] Comment on above: Performed By: #### C BCDF #### [address] [address] Neutrophils (Bld) [#/Vol] 3.10 10*3/uL Normal 1.60 - 5.50 [facility] Comment on above: Result Comment: Perc ent differential counts (%) should be interpreted in the context of the absolute cell counts (cells/L). Performed By: #### C BCDF #### [address] [address] Neutrophils/100 WBC (Bld) 53.9 % Normal 40.0 - 80.0 [facility] Comment on above: Performed By: #### C BCDF #### [place] [id number] NUCLEATED RBC 0.2 /100 WBC Normal [facility] Comment on above: Performed By: #### C BCDF #### [place] [id number] Platelets (Bld) [#/Vol] 201 10*3/uL Normal 150 - 450 [facility] Comment on above: Performed By: #### C BCDF #### [place] 1194005 RBC 3.85 x10E12/L Low 4.00 - 5.20 [facility] Comment on above: Performed By: #### C BCDF #### [place] [id number] WBC (Bld) [#/Vol] 5.7 10*3/uL Normal 4.4 - 11.3 [facility] Comment on above: Performed By: #### C BCDF #### [place] [address] COMPREHENSIVE PANELon 2020 Albumin [Mass/Vol] 3.3 g/dL Low 3.4 - 5.0 [facility] Comment on above: Order Comment: [facility] Performed By: #### C MP #### [place] [id number] ALP [Catalytic activity/Vol] 78 U/L Normal 33 - 136 [facility] Comment on above: Order Comment: [facility] Performed By: #### C MP #### [place] 1194005 ALT [Catalytic activity/Vol] 6 U/L Low 7 - 45 [facility] Comment on above: Order Comment: [facility] Result Comment: Misty ents treated with Sulfasalazine may generate falsely decreased results for ALT. Performed By: #### C MP #### [place] 1194005 Anion gap [Moles/Vol] 12 mmol/L Normal 10 - 20 [facility] Comment on above: Order Comment: [facility] HOME Performed By: #### C MP #### [address] [address] AST [Catalytic activity/Vol] 19 U/L Normal 9 - 39 [facility] Comment on above: Order Comment: [facility] Performed By: #### C MP #### [address] [address] Bilirubin [Mass/Vol] 0.3 mg/dL Normal 0.0 - 1.2 [facility] Comment on above: Order Comment: [facility] HOME Performed By: #### C MP #### [address] [address] Calcium [Mass/Vol] 9.3 mg/dL Normal 8.6 - 10.3 [facility] Comment on above: Order Comment: [facility] HOME Performed By: #### C MP #### [address] [address] Chloride [Moles/Vol] 103 mmol/L Normal 98 - 107 [facility] Comment on above: Order Comment: [facility] HOME Performed By: #### C MP #### [address] [address] Creatinine [Mass/Vol] 0.70 mg/dL Normal 0.50 - 1.05 [facility] Comment on above: Order Comment: [facility] HOME Performed By: #### C MP #### [address] [address] GFR- AM. >60 Normal >60 [facility] Comment on above: Order Comment: [facility] Result Comment: CALC ULATIONS OF ESTIMATED GFR ARE PERFORMED USING THE MDRD STUDY EQUATION FOR THE IDMS-TRACEABLE CREATININE METHODS. CLIN CHEM 2007;53:766-72 Performed By: #### C MP #### [address] [address] GFR-NON AM. >60 Normal >60 [facility] Comment on above: Order Comment: [facility] HOME Performed By: #### C MP #### [address] [address] Glucose [Mass/Vol] 103 mg/dL High 74 - 99 [facility] Comment on above: Order Comment: [facility] Performed By: #### C MP #### [address] [address] HCO3 (Bld) [Moles/Vol] 28 mmol/L Normal 21 - 32 [facility] Comment on above: Order Comment: [facility] Performed By: #### C MP #### [address] [address] Potassium [Moles/Vol] 3.8 mmol/L Normal 3.5 - 5.3 [facility] Comment on above: Order Comment: [facility] Performed By: #### C MP #### [address] [address] Protein [Mass/Vol] 6.3 g/dL Low 6.4 - 8.2 [facility] Comment on above: Order Comment: [facility] Performed By: #### C MP #### [address] [address] Sodium [Moles/Vol] 139 mmol/L Normal 136 - 145 [facility] Comment on above: Order Comment: [facility] Performed By: #### C MP #### [address] [address] Urea nitrogen [Mass/Vol] 13 mg/dL Normal 6 - 23 [facility] Comment on above: Order Comment: [facility] Performed By: #### C MP #### [address] [address] TSHon 06-21-2021 TSH Qn 4.73 m[IU]/L High 0.44 - 3.98 [facility] Comment on above: Order Comment: [facility] Result Comment: TSH testing is performed using different testing methodology at [facility] than at other [facility]. Direct result comparisons should only be made within the same method. Performed By: #### T SH2 #### [address] [address] Bacteria Bld Culton 05-18-20 21 Bacteria identified Cx Nom (Bld) CULTURE, BLOOD: No growth 5 days Normal [facility] Comment on above: Performed By: #### 6 00-7 #### [facility] CLIA [id number] [address] Bacteria identified Cx Nom (Bld) CULTURE, BLOOD: No growth 5 days Normal [facility] Comment on above: Performed By: #### 6 00-7 #### [facility] CLIA [id number] [address] CBC W Auto Differential pane l (Bld)on 05-18-2021 Basophils (Bld) [#/Vol] 10*3/uL Normal <0.11 [facility] Comment on above: Order Comment: Speci men Type: BLOOD SPECIMEN Performed By: #### 5 7021-8 #### [facility] [place] [facility] CLIA [id number] [address] [place], [place] [address] [place] [address] Basophils/100 WBC (Bld) 0.2 % Normal [facility] Comment on above: Order Comment: Speci men Type: BLOOD SPECIMEN Performed By: #### 5 7021-8 #### [facility] [place] [facility] CLIA [id number] [address] [place] [address] [facility] Differential cell count method Nom (Bld) Auto Normal [facility] Comment on above: Order Comment: Speci men Type: BLOOD SPECIMEN Performed By: #### 5 7021-8 #### [facility] [place] [facility] CLIA [id number] [address] [place] [address] [place] Eosinophils (Bld) [#/Vol] 0.13 10*3/uL Normal <0.46 [facility] Comment on above: Order Comment: Speci men Type: BLOOD SPECIMEN Performed By: #### 5 7021-8 #### [facility] [place] [facility] CLIA [id number] [address] [place] [address] [place] Eosinophils/100 WBC (Bld) 2.8 % Normal [facility] Comment on above: Order Comment: Speci men Type: BLOOD SPECIMEN Performed By: #### 5 7021-8 #### [facility] [place] [facility] CLIA [id number] [address] [place] [address] [place] Erythrocyte distribution width (RBC) [Ratio] 13.4 % Normal 11.5-15.0 [facility] Comment on above: Order Comment: Speci men Type: BLOOD SPECIMEN Performed By: #### 5 7021-8 #### [facility] [place] [facility] CLIA [id number] [address] [place] [address] [facility] Hematocrit (Bld) [Volume fraction] 42.1 % Normal 36.0-46.0 [facility] Comment on above: Order Comment: Speci men Type: BLOOD SPECIMEN Performed By: #### 5 7021-8 #### [facility] [place] [facility] CLIA [id number] [address] [place] [address] [place] Hemoglobin (Bld) [Mass/Vol] 13.6 g/dL Normal 11.5-15.5 [facility] Comment on above: Order Comment: Speci men Type: BLOOD SPECIMEN Performed By: #### 5 7021-8 #### [facility] [place] [facility] CLIA [id number] [address] [place] [address] [place] Lymphocytes (Bld) [#/Vol] 1.58 10*3/uL Normal 1.00-4.00 [facility] Comment on above: Order Comment: Speci men Type: BLOOD SPECIMEN Performed By: #### 5 7021-8 #### [facility] [place] [facility] CLIA [id number] [address] [place] [address] [place] Lymphocytes/100 WBC (Bld) 33.5 % Normal [facility] Comment on above: Order Comment: Speci men Type: BLOOD SPECIMEN Performed By: #### 5 7021-8 #### [facility] [place] [facility] CLIA [id number] [address] [place] [address] [place] MCH (RBC) [Entitic mass] 30.4 pg Normal 26.0-34.0 [facility] Comment on above: Order Comment: Speci men Type: BLOOD SPECIMEN Performed By: #### 5 7021-8 #### [facility] [place] [facility] CLIA [id number] [address] [place] [address] [place] MCHC (RBC) [Mass/Vol] 32.3 g/dL Normal 30.5-36.0 [facility] Comment on above: Order Comment: Speci men Type: BLOOD SPECIMEN Performed By: #### 5 7021-8 #### [facility] [place] [facility] CLIA [id number] [address] [place] [address] [place] MCV (RBC) [Entitic vol] 94.0 fL Normal 80.0-100.0 [facility] Comment on above: Order Comment: Speci men Type: BLOOD SPECIMEN Performed By: #### 5 7021-8 #### [facility] [place] [facility] CLIA [id number] [address] [place] [address] [place] Monocytes (Bld) [#/Vol] 0.39 10*3/uL Normal <0.87 [facility] Comment on above: Order Comment: Speci men Type: BLOOD SPECIMEN Performed By: #### 5 7021-8 #### [facility] [place] [facility] CLIA [id number] [address] [place] [address] [place] Monocytes/100 WBC (Bld) 8.3 % Normal [facility] Comment on above: Order Comment: Speci men Type: BLOOD SPECIMEN Performed By: #### 5 7021-8 #### [facility] [place] [facility] CLIA [id number] [address] [place] [address] [place] Neutrophils (Bld) [#/Vol] 2.61 10*3/uL Normal 1.45-7.50 [facility] Comment on above: Order Comment: Speci men Type: BLOOD SPECIMEN Performed By: #### 5 7021-8 #### [facility] [place] [facility] CLIA [id number] [address] [place] [address] [place] Neutrophils/100 WBC (Bld) 55.2 % Normal [facility] Comment on above: Order Comment: Speci men Type: BLOOD SPECIMEN Performed By: #### 5 7021-8 #### [facility] [place] [facility] CLIA [id number] [address] [place] [address] [facility] Platelet mean volume (Bld) [Entitic vol] 10.4 fL Normal 9.0-12.7 [facility] Comment on above: Order Comment: Speci men Type: BLOOD SPECIMEN Performed By: #### 5 7021-8 #### [facility] [place] [facility] CLIA [id number] [address] [place] [address] [place] Platelets (Bld) [#/Vol] 144 10*3/uL Low 150-400 [facility] Comment on above: Order Comment: Speci men Type: BLOOD SPECIMEN Performed By: #### 5 7021-8 #### [facility] [place] [facility] CLIA [id number] [address] [place] [address] [place] RBC (Bld) [#/Vol] 4.48 10*6/uL Normal 3.90-5.20 [facility] Comment on above: Order Comment: Speci men Type: BLOOD SPECIMEN Performed By: #### 5 7021-8 #### [facility] [place] [facility] CLIA [id number] [address] [place] [address] [place] WBC (Bld) [#/Vol] 4.72 10*3/uL Normal 3.70-11.00 [facility] Comment on above: Order Comment: Speci men Type: BLOOD SPECIMEN Performed By: #### 5 7021-8 #### [facility] [place] [facility] CLIA [id number] [address] [place] [address] [facility] [place] CT NECK SOFT TISSUE W IVCONo n 05-18-2021 CT NECK SOFT TISSUE W IVCON * * *Final Report* * * DATE OF EXAM: May 18 2021 12:21AM [facility] 0013 - CT NECK SOFT TISSUE W IVCON / PROCEDURE REASON: Difficulty opening mouth * * * * Physician Interpretation * * * * CT Neck Soft Tissue with Contrast HISTORY: Trismus, neck swelling COMPARISON: 04/19/[address] TECHNIQUE: Helical scan of the neck from the petrous ridges through the upper mediastinum following IV administration of 100 Visipaque 270. Dose-Length Product (DLP): 464.63 mGy*cm. CT Dose Reduction Employed: Automated exposure control (AEC) RESULT: Acute findings: There is severe multispatial edema. The process appears centered in the pharyngeal mucosal space where there is severe oropharyngeal and hypopharyngeal submucosal edema which also involves the supraglottic larynx/epiglottis. This results in severe/near complete effacement of the airway. There is involvement of adjacent suprahyoid soft tissue spaces with thin retropharyngeal effusion, bilateral parapharyngeal space edema, and bilateral submandibular space edema. Involvement extends into the infrahyoid neck where there is more mild visceral space edema. In addition, edema is present within the floor of mouth and the left greater than right submental and subcutaneous soft tissues. There is no drainable collection. Other findings: There is mild left greater than right submandibular gland heterogeneity likely sialoadenitis, which is probably reactive to the above described process. Chronic calculi in the right submandibular duct within the floor of mouth. Mild adenopathy in the infrahyoid neck and axillary spaces overall similar to the prior examination. Mild degenerative changes. IMPRESSION: Acute multispatial edema as detailed above. The process is centered in the pharynx and supraglottic larynx, with severe submucosal edema resulting in near complete effacement of the airway. Edema also involves the retropharyngeal, bilateral parapharyngeal, bilateral submandibular spaces and to a lesser extent the visceral space of the infrahyoid neck. There is also nonspecific submental edema. There are no drainable collections. Overall, angioedema is favored as the underlying etiology with infection/inflammation less likely. Submandibular sialoadenitis is reactive to the above described process rather than the epicenter. Incidental right submandibular duct calculi are unchanged when compared to the prior examination. URGENT RESULTS Acuity: Urgent Communication: Findings of airway compromise were discussed with Sophia MAYA on 05/18/2021 1:13 AM via verbal communication. Additional findings later relayed to Dr. Levine. Software Engineer Backend: IV[employer] Transcribe Date/Time: May 18 2021 12:56A Dictated by : LAURIE CHERRY MD This examination was interpreted and the report reviewed and electronically signed by: LAURIE CHERRY MD on May 18 2021 1:40AM EST [id number] Normal [facility] Comprehensive metabolic 2000 panelon 05-18-2021 Albumin [Mass/Vol] 3.8 g/dL Low 3.9-4.9 [facility] Comment on above: Order Comment: Speci men Type: BLOOD SPECIMEN Performed By: #### 2 4323-8 #### [facility] [place] [facility] CLIA [id number] [address] [place] [address] [place] ALP [Catalytic activity/Vol] 67 U/L Normal 34-123 [facility] Comment on above: Order Comment: Speci men Type: BLOOD SPECIMEN Performed By: #### 2 4323-8 #### [facility] [place] [facility] CLIA [id number] [address] [facility] [place] [address] [place] ALT With P-5'-P [Catalytic activity/Vol] 7 U/L Normal 7-38 [facility] Comment on above: Order Comment: Speci men Type: BLOOD SPECIMEN Performed By: #### 2 4323-8 #### [facility] [place] [facility] CLIA [id number] [address] [facility] [place] [address] [place] Anion gap [Moles/Vol] 12 mmol/L Normal 9-18 [facility] Comment on above: Order Comment: Speci men Type: BLOOD SPECIMEN Performed By: #### 2 4323-8 #### [facility] [place] [facility] CLIA [id number] [address] [place] [address] [place] AST With P-5'-P [Catalytic activity/Vol] 26 U/L Normal 13-35 [facility] Comment on above: Order Comment: Speci men Type: BLOOD SPECIMEN Performed By: #### 2 4323-8 #### [facility] [place] [facility] CLIA [id number] [address] [place] [address] [place] Bilirubin [Mass/Vol] 0.3 mg/dL Normal 0.2-1.3 [facility] Comment on above: Order Comment: Speci men Type: BLOOD SPECIMEN Performed By: #### 2 4323-8 #### [facility] [place] [facility] CLIA [id number] [address] [facility] [place] [address] [place] Calcium [Mass/Vol] 9.6 mg/dL Normal 8.5-10.2 [facility] Comment on above: Order Comment: Speci men Type: BLOOD SPECIMEN Performed By: #### 2 4323-8 #### [facility] [place] [facility] CLIA [id number] [address] [facility] [place] [address] [place] Chloride [Moles/Vol] 99 mmol/L Normal 97-105 [facility] Comment on above: Order Comment: Speci men Type: BLOOD SPECIMEN Performed By: #### 2 4323-8 #### [facility] [place] [facility] CLIA [id number] [address] [facility] [place] [address] [place] CO2 [Moles/Vol] 25 mmol/L Normal 22-30 [facility] Comment on above: Order Comment: Speci men Type: BLOOD SPECIMEN Performed By: #### 2 4323-8 #### [facility] [place] [facility] CLIA [id number] [address] [facility] [place] [address] [place] Creatinine [Mass/Vol] 0.77 mg/dL Normal 0.58-0.96 [facility] Comment on above: Order Comment: Speci men Type: BLOOD SPECIMEN Performed By: #### 2 4323-8 #### [facility] [place] [facility] CLIA [id number] [address] [facility] [place] [address] [place] GFR/1.73 sq M.predicted among blacks MDRD (S/P/Bld) [Vol rate/Area] mL/min/{1.73_m2} Normal [facility] Comment on above: Order Comment: Speci men Type: BLOOD SPECIMEN Performed By: #### 2 4323-8 #### [facility] [place] [facility] CLIA [id number] [address] [facility] [place] [address] [place] GFR/1.73 sq M.predicted among non-blacks MDRD (S/P/Bld) [Vol rate/Area] mL/min/{1.73_m2} Normal [facility] Comment on above: Order Comment: Ludin morales Type: BLOOD SPECIMEN Result Comment: eGFR (Estimated GFR) Units of measure: mL/min/1.73 meters squared eGFR is derived from the reexpressed MDRD Study equation using the following parameters: serum creatinine, age, gender and race. The creatinine assay has been calibrated to be traceable to IDMS. An eGFR <60 mL/min/1.73m2 for >3 months is consistent with chronic kidney disease. Refer to KDOQI guidelines for clinical interpretation. In patients with unstable renal function, e.g. those with acute kidney injury, the eGFR may not accurately reflect actual GFR. Performed By: #### 2 4323-8 #### [facility] CLIA [id number] [address] [place] [address] [place] Glucose [Mass/Vol] 121 mg/dL High 74-99 [facility] Comment on above: Order Comment: Ludin morales Type: BLOOD SPECIMEN Result Comment: The [place] [employer] Association (ADA) provides guidance for cutoff values for fasting glucose and random glucose. The ADA defines fasting as no caloric intake for at least 8 hours. Fasting plasma glucose results between 100 to 125 mg/dL indicate increased risk for diabetes (prediabetes). Fasting plasma glucose results greater than or equal to 126 mg/dL meet the criteria for diagnosis of diabetes. In the absence of unequivocal hyperglycemia, results should be confirmed by repeat testing. In a patient with classic symptoms of hyperglycemia or hyperglycemic crisis, random plasma glucose results greater than or equal to 200 mg/dL meet the criteria for diagnosis of diabetes. Reference: Standards of Medical Care in Diabetes 2016, [place] [employer]. Diabetes Care. 2016.39(Suppl 1). Performed By: #### 2 4323-8 #### [facility] CLIA [id number] [address] [place] [address] [place] Potassium [Moles/Vol] 4.1 mmol/L Normal 3.7-5.1 [facility] Comment on above: Order Comment: Ludin men Type: BLOOD SPECIMEN Performed By: #### 2 4323-8 #### [facility] [place] [facility] CLIA [id number] [address] [place] [address] [place] Protein [Mass/Vol] 6.9 g/dL Normal 6.3-8.0 [facility] Comment on above: Order Comment: Speci men Type: BLOOD SPECIMEN Performed By: #### 2 4323-8 #### [facility] [place] [facility] CLIA [id number] [address] [place] [address] [place] Sodium [Moles/Vol] 136 mmol/L Normal 136-144 [facility] Comment on above: Order Comment: Speci men Type: BLOOD SPECIMEN Performed By: #### 2 4323-8 #### [facility] [place] [facility] CLIA [id number] [address] [place] [address] [place] Urea nitrogen [Mass/Vol] 18 mg/dL Normal 7-21 [facility] Comment on above: Order Comment: Speci men Type: BLOOD SPECIMEN Performed By: #### 2 4323-8 #### [facility] [place] [facility] CLIA [id number] [address] [place] [address] [place] Lactate (Bld) [Moles/Vol]on 05-18-2021 Lactate [Moles/Vol] 1.0 mmol/L Normal 0.5-2.2 [facility] Comment on above: Order Comment: Speci men Type: BLOOD SPECIMEN Performed By: #### 3 2693-4 #### [facility] [place] [facility] CLIA [id number] [address] [place] [address] [place] SARS-CoV-2 RNA Resp Ql ANALI+p robeon 05-18-2021 SARS-CoV-2 (COVID-19) RNA ANALI+probe Ql (Resp) COVID 19 RESULT: SARS-CoV-2 (Agent of COVID-19) Not Detected by PCR. This test has been authorized by FDA under an Emergency Use Authorization (EUA) Normal [facility] Comment on above: Performed By: #### 3 2693-4 #### [facility] [place] [facility] CLIA [id number] [address] [place], [place] [id number] [place] XR CHEST 1V FRONTALon 2020 XR CHEST 1V FRONTAL * * *Final Report* * * DATE OF EXAM: May 18 2021 1:21AM [facility] 5290 - XR CHEST 1V FRONTAL / PROCEDURE REASON: Evaluate tube, line or lead position * * * * Physician Interpretation * * * * EXAMINATION: CHEST RADIOGRAPH (SINGLE VIEW AP OR PA) CLINICAL HISTORY: Evaluate tube, line or lead position MQ: XC1_5 Comparison: CT chest dated 04/19/2021. RESULT: Lines, tubes, and devices: Endotracheal tube appears to be in adequate position above level of socrates. The enteric tube descends down the esophagus and then coils at the lower esophagus in a cranial direction Lungs and pleura: No consolidation. No lung mass. No pleural effusion. Cardiomediastinal silhouette: Normal cardiomediastinal silhouette. Lucencies noted about aortic knob. Other: Subcutaneous emphysema of the neck. IMPRESSION: Pneumomediastinum. Subcutaneous emphysema of the neck. Enteric tube coiled within the esophagus. Findings discussed with Dr. Levine of the emergency room on 05/18/2021 at 1:30 AM. Software Engineer Backend[facility] Transcribe Date/Time: May 18 2021 1:23A Dictated by : EDY IVERSON MD This examination was interpreted and the report reviewed and electronically signed by: EDY IVERSON MD on May 18 2021 1:32AM EST [id number] Normal [facility] MRI Spine Lumbar w/ + w/o Co ntraston 04-30-2021 MRI Spine Lumbar w/ + w/o Contrast Patient Name: LISA [facility] ACCESSION EXAM DATE/TIME PROCEDURE ORDERING PROVIDER [id number] 04/30/2021 15:15 EDT MRI Spine Lumbar w/ + w/ TALIWAL, MU V o Contrast CPT code 43043 Reason For Exam (MRI Spine Lumbar w/ + w/o Contrast) wound infection. post laminectomy Report Examination: MRI lumbar spine with and without gadolinium Indication: wound infection. post laminectomy Technique: Multiplanar multi-sequence pregadolinium MRI images of the lumbar spine were obtained. Post gadolinium T1 axial and sagittal images were also acquired following intravenous administration of 10 mL Gadavist. Findings: Posterior spinal skyla and pedicle screw fixation is present from L4 to S1. Laminectomy changes are present from L2/L3-L5/S1. Suspected mild scar/granulation tissue along the posterior margin of the laminectomy. There does appear to be a small collection within the subcutaneous soft tissues posterior to the L1 posterior spinous process measuring 0.7 x 1.6 cm. Grade 1 anterior listhesis of L4 on L5 is present. There is grade 1 retrolisthesis at L2/L3 and L3/L4. Mild to moderate levocurvature of the lower thoracic and lumbar spine is noted. Otherwise, the bodies are in gross anatomic alignment. There is at least moderate disc space loss at L2/L3 and L3/L4. Degenerative endplate marrow edema is present at L3/L4. There is no acute fracture. There are no focal marrow replacing lesions. The conus terminates at approximately the mid L1 level. The paraspinal musculature is grossly unremarkable. At the T12/L1 level, broad-based central/right paracentral disc herniation is present with pdgc-bs-pssfyhlq narrowing of the central canal. The foramina are patent. At the L1/L2 level, circumferential disc bulging with small osteophytes are present, more pronounced in the right paracentral region. There is narrowing of the right lateral recess. Degenerative facet changes are present. Vuwv-jj-hpizcmlt narrowing of the central canal is noted. Asfz-us-ufnlgxwc bilateral foraminal narrowing is greater on the right. At the L2/L3 level, minimal retrolisthesis is noted. There is circumferential disc bulging is slightly more focal in the right Magnetic Resonance Imaging Report paracentral/foraminal region. Moderate to severe right and nvri-vw-noacqzab left-sided foraminal narrowing is noted. Laminectomy is present. There is mild central canal stenosis. Encroachment on the right lateral recess is noted. At the L3/L4 level, grade 1 retrolisthesis is present. There is circumferential disc bulging with small osteophytes. Fairly advanced degenerative facet changes are present with laminectomy. Narrowing of the lateral recesses is present. There is moderate narrowing of the central canal. Severe right and moderate to severe left-sided foraminal narrowing is noted. At the L4/L5 level, grade 1 anterior listhesis is present. There is diffuse posterior disc bulging which extends into the right and left foramina. There is encroachment on the lateral recesses. The central canal is patent. Moderate to severe bilateral foraminal narrowing is present. Posterior spinal fixation present at this level. At the L5/S1 level, grade 1 anterior listhesis is present. Degenerative facet changes are present with laminectomy. There is posterior spinal fixation. The central canal is patent. Ayun-aj-ufuomxur bilateral foraminal stenosis is present. Impression: Small collection within the soft tissues overlying the posterior spinous process of L1 with wound/tract extending to the skin surface. There is presumed surgical packing within this wound. Early acute osteomyelitis within the adjacent L1 posterior spinous process is not entirely excluded. Multilevel degenerative changes with multilevel spondylolisthesis. Posterior spinal fixation from L4-S1 with laminectomy changes from L2/L3-L5/S1. Narrowing/encroachment on the lateral recesses at L1/L2-L4/L5. Report Dictated on Workstation: [id number] Final Dictated: 05/01/2021 11:05 am Dictating Physician: MD JASON KRIKOR Signed Date and Time: 05/01/2021 11:21 am Signed by: MD JASON KRIKOR Transcribed Date and Time: 05/01/2021 11:05 Normal [facility] XR Chest PA and Lateralon IMPRESSION: No acute radiographic abnormality. Software Engineer Backend: IVAN Transcribe Date/Time: Mar 21 2021 1:02P Dictated by : PERFECTO LAMB MD This examination was interpreted and the report reviewed and electronically signed by: PERFECTO LAMB MD on Mar 21 2021 1:03PM [facility] DIVISION OF RADIOLOGY * * *Final Report* * * DATE OF EXAM: Mar 21 2021 12:56PM WOX 5291 - XR CHEST 2V FRONTAL/LAT / PROCEDURE REASON: Chest pain, unspecified type * * * * Physician Interpretation * * * * EXAMINATION: CHEST RADIOGRAPH (2 VIEW FRONTAL & LATERAL) CLINICAL HISTORY: Chest pain, unspecified type MQ: XC2_6 EXAM DATE/TIME: 03/21/2021 12:56 PM COMPARISON: 01/12/2021 RESULT: Lines, tubes, and devices: None. Lungs and pleura: No consolidation. No lung mass. No pleural effusion. No pneumothorax. There is evidence of remote granulomatous disease these Cardiomediastinal silhouette: Normal cardiomediastinal silhouette. Bones and soft tissues: Unremarkable. DIVISION OF RADIOLOGY Provider, Keven Frausto [facility] - 03/21/2021 * * *Final Report* * * DATE OF EXAM: Mar 21 2021 12:56PM WOX 5291 - XR CHEST 2V FRONTAL/LAT / PROCEDURE REASON: Chest pain, unspecified type * * * * Physician Interpretation * * * * EXAMINATION: CHEST RADIOGRAPH (2 VIEW FRONTAL & LATERAL) CLINICAL HISTORY: Chest pain, unspecified type MQ: XC2_6 EXAM DATE/TIME: 03/21/2021 12:56 PM COMPARISON: 01/12/2021 RESULT: Lines, tubes, and devices: None. Lungs and pleura: No consolidation. No lung mass. No pleural effusion. No pneumothorax. There is evidence of remote granulomatous disease these Cardiomediastinal silhouette: Normal cardiomediastinal silhouette. Bones and soft tissues: Unremarkable. IMPRESSION IMPRESSION: No acute radiographic abnormality. 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SCB Transcribe Date/Time: Mar 21 2021 1:02P Dictated by : PERFECTO LAMB MD This examination was interpreted and the report reviewed and electronically signed by: PERFECTO LAMB MD on Mar 21 2021 1:03PM EST [facility] Radiology Study observation (narrative) [facility] XR Chest PA and LateralOrder ed By: Ccf Provider on 03-21-2021 [facility] PREALBUMINon 03-10-2021 Prealbumin [Mass/Vol] 11.8 mg/dL Low 18.0 - 40.0 [facility] Comment on above: Performed By: #### P REAL #### [facility] [address] [place] [address] CBC AND DIFFERENTIALon 03-09 Basophils (Bld) [#/Vol] 0.00 10*3/uL Normal 0.00 - 0.1 0 [facility] Comment on above: Performed By: #### C BCDF #### [address] [address] Basophils/100 WBC (Bld) 0.3 % Normal 0.0 - 2.0 [facility] Comment on above: Performed By: #### C BCDF #### [address] [address] Eosinophils (Bld) [#/Vol] 0.20 10*3/uL Normal 0.00 - 0.40 [facility] Comment on above: Performed By: #### C BCDF #### [address] [address] Eosinophils/100 WBC (Bld) 4.0 % Normal 0.0 - 6.0 [facility] Comment on above: Performed By: #### C BCDF #### [address] [address] Erythrocyte distribution width (RBC) [Ratio] 14.3 % Normal 11.5 - 14.5 [facility] Comment on above: Performed By: #### C BCDF #### [address] [address] Hematocrit (Bld) [Volume fraction] 36.9 % Normal 36.0 - 46.0 [facility] Comment on above: Performed By: #### C BCDF #### [address] [address] Hemoglobin (Bld) [Mass/Vol] 12.2 g/dL Normal 12.0 - 16.0 [facility] Comment on above: Performed By: #### C BCDF #### [address] [address] Lymphocytes (Bld) [#/Vol] 1.10 10*3/uL Normal 0.80 - 3.00 [facility] Comment on above: Performed By: #### C BCDF #### [address] [address] Lymphocytes/100 WBC (Bld) 27.2 % Normal 13.0 - 44.0 [facility] Comment on above: Performed By: #### C BCDF #### [address] [address] MCHC (RBC) [Mass/Vol] 32.9 g/dL Normal 32.0 - 36.0 [facility] Comment on above: Performed By: #### C BCDF #### [address] [address] MCV (RBC) [Entitic vol] 93 fL Normal 80 - 100 [facility] Comment on above: Performed By: #### C BCDF #### [address] [address] Monocytes (Bld) [#/Vol] 0.30 10*3/uL Normal 0.05 - 0.8 0 [facility] Comment on above: Performed By: #### C BCDF #### [address] [address] Monocytes/100 WBC (Bld) 7.6 % Normal 2.0 - 10.0 [facility] Comment on above: Performed By: #### C BCDF #### [address] [address] Neutrophils (Bld) [#/Vol] 2.50 10*3/uL Normal 1.60 - 5.50 [facility] Comment on above: Result Comment: Perc ent differential counts (%) should be interpreted in the context of the absolute cell counts (cells/L). Performed By: #### C BCDF #### [address] [address] Neutrophils/100 WBC (Bld) 60.9 % Normal 40.0 - 80.0 [facility] Comment on above: Performed By: #### C BCDF #### [address] [address] NUCLEATED RBC 0.1 /100 WBC Normal [facility] Comment on above: Performed By: #### C BCDF #### [address] [address] Platelets (Bld) [#/Vol] 144 10*3/uL Low 150 - 450 [facility] Comment on above: Performed By: #### C BCDF #### [address] [place] [address] RBC 3.96 x10E12/L Low 4.00 - 5.20 [facility] Comment on above: Performed By: #### C BCDF #### [address] [address] WBC (Bld) [#/Vol] 4.1 10*3/uL Low 4.4 - 11.3 [facility] Comment on above: Performed By: #### C BCDF #### [address] [address] XR Chest PA and Lateralon IMPRESSION: No acute radiographic abnormality. 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SCB Transcribe Date/Time: Jan 12 2021 3:02P Dictated by : ANEL REICH MD This examination was interpreted and the report reviewed and electronically signed by: ANEL REICH MD on Jan 12 2021 3:04PM [facility] DIVISION OF RADIOLOGY * * *Final Report* * * DATE OF EXAM: Jan 12 2021 3:01PM WOX 5291 - XR CHEST 2V FRONTAL/LAT / PROCEDURE REASON: Chills * * * * Physician Interpretation * * * * EXAMINATION: CHEST RADIOGRAPH (2 VIEW FRONTAL & LATERAL) CLINICAL HISTORY: Chills MQ: XC2_6 EXAM DATE/TIME: 01/12/2021 3:01 PM COMPARISON: 05/02/2019, correlation was also made with CT PE exam of 09/20/2020 RESULT: Lines, tubes, and devices: None. Lungs and pleura: No focal consolidation, pleural effusion or pneumothorax. Calcified granuloma in the superior RIGHT lower lobe. Cardiomediastinal silhouette: Within normal limits. Bones and soft tissues: No acute osseous abnormalities identified. Degenerative changes are present in the thoracic spine. DIVISION OF RADIOLOGY Provider, [facility]bet [facility] - 01/12/2021 * * *Final Report* * * DATE OF EXAM: Jan 12 2021 3:01PM WOX 5291 - XR CHEST 2V FRONTAL/LAT / PROCEDURE REASON: Chills * * * * Physician Interpretation * * * * EXAMINATION: CHEST RADIOGRAPH (2 VIEW FRONTAL & LATERAL) CLINICAL HISTORY: Chills MQ: XC2_6 EXAM DATE/TIME: 01/12/2021 3:01 PM COMPARISON: 05/02/2019, correlation was also made with CT PE exam of 09/20/2020 RESULT: Lines, tubes, and devices: None. Lungs and pleura: No focal consolidation, pleural effusion or pneumothorax. Calcified granuloma in the superior RIGHT lower lobe. Cardiomediastinal silhouette: Within normal limits. Bones and soft tissues: No acute osseous abnormalities identified. Degenerative changes are present in the thoracic spine. IMPRESSION IMPRESSION: No acute radiographic abnormality. Software Engineer Backend: [facility] Transcribe Date/Time: Jan 12 2021 3:02P Dictated by : ANEL REICH MD This examination was interpreted and the report reviewed and electronically signed by: ANEL REICH MD on Jan 12 2021 3:04PM EST [facility] Radiology Study observation (narrative) [facility] XR Chest PA and LateralOrder ed By: Ccf Provider on 01-12-2021 [facility] No Panel Informationon 12-06 [facility] Lumbar spine AP and Later diony 12-06-2020 IMPRESSION: Lumbar postsurgical and degenerative findings with mild curvature. L4-5 spondylolisthesis. Gallstones Software Engineer Backend: [facility] Transcribe Date/Time: Dec 06 2020 3:05P Dictated by : WILNER HINOJOSA MD This examination was interpreted and the report reviewed and electronically signed by: WILNER HINOJOSA MD on Dec 06 2020 3:08PM [facility] DIVISION OF RADIOLOGY * * *Final Report* * * DATE OF EXAM: Dec 06 2020 3:01PM WOX 5229 - XR LUMBAR 2V AP/LAT / PROCEDURE REASON: multiple diagnoses * * * * Physician Interpretation * * * * Lumbar spine History: Infected sebaceous cyst of skin Infected sebaceous cyst of skin Findings: AP and lateral views were performed. Mild lumbar levoscoliosis. Status post lower lumbar laminectomy with posterior fusion. Pedicle screws bilaterally at L4 and S1, and RIGHT side L5. Multilevel disc space narrowing and spurring. Grade 1 spondylolisthesis L4-5. Partially calcified gallstones. IVC filter at level of L2 and L3. Counting reference: Lumbosacral junction. For the purposes of this report, L4-5 is considered the level of the iliac crest and there are 5 lumbar-type vertebrae. Anatomic Variants: None. DIVISION OF RADIOLOGY Provider, Mady Lisbet [facility] - 12/06/2020 * * *Final Report* * * DATE OF EXAM: Dec 06 2020 3:01PM WOX 5229 - XR LUMBAR 2V AP/LAT / PROCEDURE REASON: multiple diagnoses * * * * Physician Interpretation * * * * Lumbar spine History: Infected sebaceous cyst of skin Infected sebaceous cyst of skin Findings: AP and lateral views were performed. Mild lumbar levoscoliosis. Status post lower lumbar laminectomy with posterior fusion. Pedicle screws bilaterally at L4 and S1, and RIGHT side L5. Multilevel disc space narrowing and spurring. Grade 1 spondylolisthesis L4-5. Partially calcified gallstones. IVC filter at level of L2 and L3. Counting reference: Lumbosacral junction. For the purposes of this report, L4-5 is considered the level of the iliac crest and there are 5 lumbar-type vertebrae. Anatomic Variants: None. IMPRESSION IMPRESSION: Lumbar postsurgical and degenerative findings with mild curvature. L4-5 spondylolisthesis. Gallstones Software Engineer Backend: [facility] Transcribe Date/Time: Dec 06 2020 3:05P Dictated by : WILNER HINOJOSA MD This examination was interpreted and the report reviewed and electronically signed by: WILNER HINOJOSA MD on Dec 06 2020 3:08PM [facility] XR Thoracic spine AP and Lat eralon 12-06-2020 IMPRESSION: AP and lateral views of the thoracic spine have been obtained. There are degenerative changes throughout the lumbar spine with intervertebral joint space narrowing and osteophyte formation. AP view demonstrates leftward curvature of the lower thoracic/upper lumbar region. Visualized vertebral height maintained. On the lateral view overlying the lower thorax there is lucency within the dorsal soft tissues possibly related to clinically described wound. This is only partially imaged. Further evaluation needed. Software Engineer Backend: [facility] Transcribe Date/Time: Dec 06 2020 3:05P Dictated by : BORA ELIAS MD This examination was interpreted and the report reviewed and electronically signed by: BORA ELIAS MD on Dec 06 2020 3:07PM [facility] DIVISION OF RADIOLOGY * * *Final Report* * * DATE OF EXAM: Dec 06 2020 3:01PM WOX 5262 - XR THORACIC 2V AP/LAT / PROCEDURE REASON: multiple diagnoses * * * * Physician Interpretation * * * * History: Open wound FINDINGS/ DIVISION OF RADIOLOGY Provider, Keven Cisneros - 12/06/2020 * * *Final Report* * * DATE OF EXAM: Dec 06 2020 3:01PM WOX 5262 - XR THORACIC 2V AP/LAT / PROCEDURE REASON: multiple diagnoses * * * * Physician Interpretation * * * * History: Open wound FINDINGS/ IMPRESSION IMPRESSION: AP and lateral views of the thoracic spine have been obtained. There are degenerative changes throughout the lumbar spine with intervertebral joint space narrowing and osteophyte formation. AP view demonstrates leftward curvature of the lower thoracic/upper lumbar region. Visualized vertebral height maintained. On the lateral view overlying the lower thorax there is lucency within the dorsal soft tissues possibly related to clinically described wound. This is only partially imaged. Further evaluation needed. 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[employer] Transcribe Date/Time: Dec 06 2020 3:05P Dictated by : BORA ELIAS MD This examination was interpreted and the report reviewed and electronically signed by: BORA ELIAS MD on Dec 06 2020 3:07PM EST [facility] XR Thoracic spine AP and Lat eralOrdered By: Ccf Provider on 12-06-2020 [facility] CULTURE URINEon 09-15-2020 CULTURE URINE 1 Organism Pseudomon as aeruginosa 10,000-50,000 CFU/ml 1 Organism Antibiotic Result Intrp Cefepime(VESTA) 2 S Pip/Tazobactam(VESTA) 8 S Meropenem(VESTA) <= 0.25 S Ciprofloxacin(VESTA) <= 0.25 S Gentamicin(VESTA) <= 1 S Amikacin(VESTA) <= 2 S Normal [facility] Comment on above: Performed By: #### C /UR #### [place] [address] [address] [place], [place] [address] [place], [place] Basic Metabolic Panelon 12-2 Calcium [Mass/Vol] 9.2 mg/dL Normal 8.4-10.4 [facility] Comment on above: Performed By: #### B NP3, TROPN, LACT3, BMP3 #### [place] [address] [address] [place], [place] Glucose [Mass/Vol] 113 mg/dL High 70-100 [facility] Comment on above: Performed By: #### B NP3, TROPN, LACT3, BMP3 #### [place] [address] [address] [place], [place] Anion Gap 6 Normal [facility] Comment on above: Performed By: #### B NP3, TROPN, LACT3, BMP3 #### [place] [address] [address] [place], [place] CO2 [Moles/Vol] 29 mmol/L Normal 22-30 [facility] Comment on above: Performed By: #### B NP3, TROPN, LACT3, BMP3 #### [place] [address] [address] [place], [place] Creatinine [Mass/Vol] 0.77 mg/dL Normal 0.52-1.25 [facility] Comment on above: Performed By: #### B NP3, TROPN, LACT3, BMP3 #### [place] [address] [address] [place], [place] GFR/1.73 sq M.predicted among blacks MDRD (S/P/Bld) [Vol rate/Area] 86.4 mL/min/{1.73_m2} Normal >60 [facility] Comment on above: Performed By: #### B NP3, TROPN, LACT3, BMP3 #### [address] [address] GFR/1.73 sq M.predicted among non-blacks MDRD (S/P/Bld) [Vol rate/Area] 74.6 mL/min/{1.73_m2} Normal >60 [facility] Comment on above: Result Comment: KDIG O guidelines provide the following GFR categories: Stage GFR(ml/min/1.73 m2) Terms G1 >=90 Normal or high G2 60-89 Mildly decreased* G3a 45-59 Mildly to moderately decreased G3b 30-44 Moderately to severely decreased G4 15-29 Severely decreased G5 <15 Kidney failure *Relative to young adult level. In the absence of evidence of kidney damage, neither GFR category G1 nor G2 fulfill the criteria for CKD. The CKD-EPI equation is validated in individuals 18 years of age and older. Currently the best equation for estimating glomerular filtration rate (GFR) from serum creatinine in children is the Bedside Sinha equation. It is less accurate in patients with extremes of muscle mass, restriction of dietary protein, ingestion of creatine, extra-renal metabolism of creatinine, or treatment with medications that affect renal tubular creatinine secretion. Performed By: #### B NP3, TROPN, LACT3, BMP3 #### [place] [address] [place], [place] Urea nitrogen [Mass/Vol] 15 mg/dL Normal 7-20 [facility] Comment on above: Performed By: #### B NP3, TROPN, LACT3, BMP3 #### [place] [address] [address] [place], [place] Chloride [Moles/Vol] 102 mmol/L Normal 98-107 [facility] Comment on above: Performed By: #### B NP3, TROPN, LACT3, BMP3 #### [address] Potassium [Moles/Vol] 4.5 mmol/L Normal 3.5-5.1 [facility] Comment on above: Performed By: #### B NP3, TROPN, LACT3, BMP3 #### [address] [address] Sodium [Moles/Vol] 138 mmol/L Normal 135-145 [facility] Comment on above: Performed By: #### B NP3, TROPN, LACT3, BMP3 #### [facility] [address] [place] [address] Anion gap [Moles/Vol] 6 mmol/L [place], [place] Calcium [Mass/Vol] 9.2 mg/dL 8.4 - 10. 4 mg/dL [place], [place] Chloride [Moles/Vol] 102 mmol/L 98 - 10 7 mmol/L [place] CO2 [Moles/Vol] 29 mmol/L 22 - 30 mmol/L [place] Creatinine [Mass/Vol] 0.77 mg/dL 0.52 - 1.25 mg/dL [place], [place] EGFR IF NonAfrican [place] 74.6 mL/min >60 [place], [place] Comment on above: KDIGO guidelines pro vide the following GFR categories: Stage GFR(ml/min/1.73 m2) Terms G1 >=90 Normal or high G2 60-89 Mildly decreased* G3a 45-59 Mildly to moderately decreased G3b 30-44 Moderately to severely decreased G4 15-29 Severely decreased G5 <15 Kidney failure *Relative to young adult level. In the absence of evidence of kidney damage, neither GFR category G1 nor G2 fulfill the criteria for CKD. The CKD-EPI equation is validated in individuals 18 years of age and older. Currently the best equation for estimating glomerular filtration rate (GFR) from serum creatinine in children is the Bedside Sinha equation. It is less accurate in patients with extremes of muscle mass, restriction of dietary protein, ingestion of creatine, extra-renal metabolism of creatinine, or treatment with medications that affect renal tubular creatinine secretion. GFR/1.73 sq M predicted among blacks MDRD (S/P/Bld) [Vol rate/Area] 86.4 mL/min/{1.73_m2} >60 [place], [place] Glucose [Mass/Vol] 113 mg/dL High 70 - 100 mg/dL [place], [place] Interpretation and review of laboratory results Abnormal [place] Potassium [Moles/Vol] 4.5 mmol/L 3.5 - 5.1 mmol/L [place] Sodium [Moles/Vol] 138 mmol/L 135 - 145 mmol/L [place] Urea nitrogen [Mass/Vol] 15 mg/dL 7 - 20 mg/dL [place] Test Performed by [facility], [address] [place] [id number] [place], [place] Brain Natriuretic Peptideon 09-13-2020 Interpretation and review of laboratory results Abnormal [place] Natriuretic peptide B (Bld) [Mass/Vol] 1195 pg/mL High 0 - 450 pg/mL [place], [place] COVID and Resp PCR Panelon 1 11-14-2019 SARS-CoV-2 (COVID-19) RNA ANALI+probe Ql (Unsp spec) COVID and Resp PCR Panel --> Status: F NEGATIVE: No targets were detected by the One Block Off the Grid (1BOG) Upper Respiratory Pathogens PCR Panel. _ Expected Result: Not Detected The One Block Off the Grid (1BOG) Upper Respiratory Pathogens PCR Panel can detect the following targets: SARS-CoV-2, Adenovirus, Coronavirus 229E, Coronavirus HKU1, Coronavirus NL63, Coronavirus OC43, Human Metapneumovirus, Human Rhinovirus/Enterovirus , Influenza A, Influenza B, Parainfluenza Virus 1, Parainfluenza Virus 2, Parainfluenza Virus 3, Parainfluenza Virus 4, Respiratory Syncytial Virus, Bordetella pertussis, Bordetella parapertussis, Chlamydia pneumoniae, Mycoplasma pneumoniae. Negative results do not preclude SARS-CoV-2 infection and should not be used as the sole basis for treatment or other patient management decisions. This assay was developed by [employer] and distributed under an Emergency Use Authorization (EUA) granted by the FDA for the qualitative detection of SARS-CoV-2 nucleic acid. Provider and patient fact sheets can be found at https://www.fda.gov/me nancy/174123/download and https://www.fda.gov/mn nancy/141038/download. Respiratory Pathogens PCR Panel. _ Expected Result: Not Detected The One Block Off the Grid (1BOG) Upper Respiratory Pathogens PCR Panel can detect the following targets: SARS-CoV-2, Adenovirus, Coronavirus 229E, Coronavirus HKU1, Coronavirus NL63, Coronavirus OC43, Human Metapneumovirus, Human Rhinovirus/Enterovirus , Influenza A, Influenza B, Parainfluenza Virus 1, Parainfluenza Virus 2, Parainfluenza Virus 3, Parainfluenza Virus 4, Respiratory Syncytial Virus, Bordetella pertussis, Bordetella parapertussis, Chlamydia pneumoniae, Mycoplasma pneumoniae. Negative results do not preclude SARS-CoV-2 infection and should not be used as the sole basis for treatment or other patient management decisions. This assay was developed by [employer] and distributed under an Emergency Use Authorization (EUA) granted by the FDA for the qualitative detection of SARS-CoV-2 nucleic acid. Provider and patient fact sheets can be found at https://www.[facility].gov/mn nancy/293885/download and https://www.[facility].gov/mn nancy/473440/download. Normal [facility] Comment on above: Performed By: #### [facility] #### [address] [address] CR Chest Portableon 09-13-20 20 CR Chest Portable Patient Name: LISA UP Diagnostic Radiology ACCESSION EXAM DATE/TIME PROCEDURE ORDERING PROVIDER [id number] 09/13/2020 14:02 EST CR Chest Portable MD KIERSTEN, WILNER Parks CPT code 00360 Reason For Exam (CR Chest Portable) cough Report PORTABLE CHEST X-RAY CLINICAL INDICATION: cough A portable frontal view of the chest was obtained. COMPARISON: 09/06/2020 FINDINGS: The cardiac silhouette is within normal limits. No focal consolidation is seen within the lungs. Slight blunting of the left costophrenic angle is again noted, which may represent a trace left pleural effusion. This is similar to the prior study. There is no pneumothorax. There are degenerative changes of the spine. IMPRESSION: No significant change when compared with the previous study. Report Dictated on Final Dictated: 09/13/2020 1:28 pm Dictating Physician: MD ELIAS JONATHAN R Signed Date and Time: 09/13/2020 1:28 pm Signed by: SUGANO, MD, YAMIL R Transcribed Date and Time: 09/13/2020 1:28 Normal [facility] Complete Urinalysison 2019 Appearance (U) Clear Normal Clear [facility] Comment on above: Result Comment: . Performed By: #### C UA2 #### [facility] [address], [place] Bilirubin,Urine Negative Normal Negative [facility] Comment on above: Result Comment: . Performed By: #### C UA2 #### [facility] [address], [place] Color (U) Yellow Normal Lt. Yellow [facility] Comment on above: Result Comment: . Performed By: #### C UA2 #### [facility] [address], [place] Glucose Ql (U) Normal Normal Normal (<70) [facility] Comment on above: Result Comment: . Performed By: #### C UA2 #### [facility] [address], [place] Ketone,Urine Negative Normal Negative [facility] Comment on above: Result Comment: . Performed By: #### C UA2 #### [facility] [address], [place] Leukocytes,Urine Negative Normal Negative [facility] Comment on above: Result Comment: . Performed By: #### C UA2 #### [facility] [address], [place] Nitrites,Urine Negative Normal Negative [facility] Comment on above: Result Comment: . Performed By: #### C UA2 #### [facility] [address], [place] Occult Blood,Urine Negative Normal Negative [facility] Comment on above: Result Comment: . Performed By: #### C UA2 #### [facility] [address], [place] pH,Urine 7.5 Normal 5.0-8.0 [facility] Comment on above: Result Comment: . Performed By: #### C UA2 #### [facility] [address], [place] Specific [place],Urine 1.014 Normal 1.005 - 1.030 [facility] [employer] [facility] Comment on above: Result Comment: . Performed By: #### C UA2 #### [facility] [address], [place] Total Protein,Urine Negative Normal Negative [facility] Comment on above: Result Comment: . Performed By: #### C UA2 #### [facility] [address], [place] Urobilinogen,Urine Normal Normal Normal (0-1) [facility] Comment on above: Result Comment: . Performed By: #### C UA2 #### [facility] [employer] [facility] [address], [place] ED Provider Noteon 0 ED Provider Note Emergency Department Encounter [facility] EMERGENCY DEPT Patient: Lisa Up : 1945 Date of Evaluation: 09/13/2020 ED Provider: WILNER FERRER MD As the [id number], I performed a medical screening history and physical exam on this patient. HISTORY OF PRESENT ILLNESS In brief, Lisa Up is a 74 y.o. female that presents for 6 weeks of illness worsened over the past week short of breath, cough, body aches, subjective chills, weakness, recent UTI. PHYSICAL EXAM ED Triage Vitals [09/13/20 1148] Enc Vitals Group BP (!) 126/57 Pulse 79 Resp 20 Temp 98.7 ?F (37.1 ?C) Temp Source Temporal SpO2 96 % Weight 235 lb (106.6 kg) Height 5' 2 (1.575 m) Head Circumference Peak Flow Pain Score Pain Loc Pain Edu? Excl. in GC? On brief exam General appearance: Well-appearing, no acute distress. Psych: Awake alert. Pleasant and cooperative. Skin: Warm and dry. Neck: Supple. Cardiovascular: RRR Lungs: Respirations unlabored Abdomen: Soft, nontender, and nondistended, no rebound, rigidity, or guarding . We will initiate diagnostics/treatments as indicated and place in main ED as soon as available. WILNER FERRER MD [employer] Wilner Ferrer MD 09/13/20 1156 [facility] ED Provider Note [facility] EMERGENCY DEPT EMERGENCY DEPARTMENT ENCOUNTER Pt Name: Lisa Up Birthdate 1945 Date of evaluation: 09/13/2020 Provider: PAVEL WATTS MD CHIEF COMPLAINT Chief Complaint Patient presents with ? Shortness of Breath pt presents for c/o sob for 6 weeks, states it has worsened over the last week, been tested for covid twice and has been negative, denies chest pain HISTORY OF PRESENT ILLNESS (Location/Symptom, Timing/Onset, Context/Setting, Quality, Duration, Modifying Factors, Severity) Note limiting factors. I wore a N95 mask for the entirety of this encounter. HPI Lisa Up is a 74 y.o. female who presents to the emergency department complaining of shortness of breath. The patient has been short of breath for over 6 weeks. She states that she was hospitalized recently. She states that they ran tests on her heart and it was normal. She has been tested for COVID 19 twice. The negative each time. The last time was approximately 20 days ago. She lives at home. She denies heart disease, diabetes, hypertension. There is been no chest pain. Nursing Notes were reviewed. REVIEW OF SYSTEMS (2+ for level 4; 10+ for level 5) Review of Systems Constitutional: Negative for activity change, chills and fever. HENT: Negative for congestion, ear pain and sore throat. Eyes: Negative for pain and redness. Respiratory: Positive for shortness of breath. Negative for cough and chest tightness. Cardiovascular: Negative for chest pain and palpitations. Gastrointestinal: Negative for abdominal pain, nausea and vomiting. Genitourinary: Negative for dysuria, flank pain and urgency. Musculoskeletal: Negative for arthralgias and myalgias. Skin: Negative for rash. Neurological: Negative for dizziness. Psychiatric/Behavioral : Negative for confusion. The patient is not nervous/anxious. PAST MEDICAL HISTORY Past Medical History: Diagnosis Date ? Anemia ? Anxiety ? Arthritis ? Chronic low back pain ? Depression ? GERD (gastroesophageal reflux disease) ? HTN (hypertension) ? Hyperlipidemia ? Incontinence of urine ? Morbid obesity (HCC) ? MRSA (methicillin resistant staph aureus) culture positive POW infection back ? Neuropathy ? CHRISTIANA (obstructive sleep apnea) ? Sleep apnea ? Spinal stenosis of lumbar region ? Thrombosis of popliteal vein, right (HCC) SURGICAL HISTORY Past Surgical History: Procedure Laterality Date ? HYSTERECTOMY, TOTAL ABDOMINAL ? KIDNEY SURGERY partial nephrectomy ? OTHER SURGICAL HISTORY 08/07/2018 lumbar I and D ? SPINE SURGERY lumbar fusion ? TOTAL KNEE ARTHROPLASTY Bilateral CURRENT MEDICATIONS Previous Medications APIXABAN (ELIQUIS) 5 MG TABS TABLET Take 1 tablet by mouth 2 times daily BACLOFEN (LIORESAL) 10 MG TABLET Take 10 mg by mouth 2 times daily as needed CARVEDILOL (COREG) 25 MG TABLET Take 25 mg by mouth 2 times daily (with meals) CEPHALEXIN (KEFLEX) 500 MG CAPSULE Take 1 capsule by mouth 2 times daily for 7 days DIPHENHYDRAMINE (BENADRYL) 25 MG TABLET Take 25 mg by mouth every 4 hours as needed for Itching FERROUS SULFATE 325 (65 FE) MG TABLET Take 325 mg by mouth daily (with breakfast) FUROSEMIDE (LASIX) 40 MG TABLET Take 40 mg by mouth daily GABAPENTIN (NEURONTIN) 300 MG CAPSULE Take 300 mg by mouth 3 times daily. . HYDRALAZINE (APRESOLINE) 25 MG TABLET Take 25 mg by mouth 3 times daily Take 1-2 tablets TID HYDROCHLOROTHIAZIDE (HYDRODIURIL) 12.5 MG TABLET Take 12.5 mg by mouth 2 times daily LACTOBACILLUS (ACIDOPHILUS PO) Take by mouth 2 times daily MELATONIN 3 MG TABS TABLET Take 1 tablet by mouth nightly MICONAZOLE (MICOTIN) 2 % POWDER Apply topically 2 times daily. MINERAL OIL-HYDROPHILIC PETROLATUM (AQUAPHOR) OINTMENT Apply topically as needed. MIRTAZAPINE (REMERON) 15 MG TABLET Take 15 mg by mouth nightly ONDANSETRON (ZOFRAN) 4 MG TABLET Take 4 mg by mouth every 4 hours as needed for Nausea or Vomiting PANTOPRAZOLE (PROTONIX) 40 MG TABLET Take 1 tablet by mouth every morning (before breakfast) POTASSIUM CHLORIDE (KLOR-CON M) 20 MEQ EXTENDED RELEASE TABLET Take 1 tablet by mouth 2 times daily TRAMADOL (ULTRAM) 50 MG TABLET Take 50 mg by mouth every 4 hours as needed for Pain.. ALLERGIES Latex, Amlodipine besylate, Erythromycin, Lisinopril, and Nafcillin FAMILY HISTORY Family History Problem Relation Age of Onset ? Cancer Mother lung ? Heart Disease Father ? Heart Attack Brother ? Other Brother aneurysm SOCIAL HISTORY Social History Socioeconomic History ? Marital status: Spouse name: None ? Number of children: None ? Years of education: None ? Highest education level: None Occupational History ? None Social Needs ? Financial resource strain: None ? Food insecurity Worry: None Inability: None ? Transportation needs Medical: None Non-medical: None Tobacco Use ? Smoking status: Never Smoker ? Smokeless t (more content not included)... Normal [facility] Hemogram (CBC) w/Auto Diffon 09-13-2020 Absolute Baso # 0.0 10*3/uL 0 - 0.2 10*3/uL [place], [place] Absolute Neut # 3.6 10*3/uL 1.8 - 7 10*3/uL [place] Basophils/100 WBC (Bld) 0.7 % 0 - 2 % [place], [place] Eosinophils (Bld) [#/Vol] 0.3 10*3/uL 0 - 0.5 10*3/uL [place] Eosinophils/100 WBC (Bld) 5.3 % 1 - 6 % [place] Erythrocyte distribution width (RBC) [Ratio] 13.7 % 11.5 - 14.5 % [place] Granulocytes/100 WBC (Bld) 65.5 % 40 - 80 % [place] Hematocrit (Bld) [Volume fraction] 37.4 % 35 - 47 % [place] Hemoglobin (Bld) [Mass/Vol] 12.2 g/dL 11.7 - 16 g/dL [place] Lymphocytes (Bld) [#/Vol] 1.2 10*3/uL 1 - 4.3 10*3/uL [place] Lymphocytes/100 WBC (Bld) 22.4 % 20 - 40 % [place] MCH (RBC) [Entitic mass] 30.3 pg 26 - 34 pg [place] MCHC (RBC) [Mass/Vol] 32.6 % 32 - 36 % [place], [place] MCV (RBC) [Entitic vol] 92.8 fL 79 - 98 fL [place], [place] Monocytes (Bld) [#/Vol] 0.3 10*3/uL 0 - 0.8 10*3/uL [place] Monocytes/100 WBC (Bld) 6.1 % 2 - 10 % [place] Platelet mean volume (Bld) [Entitic vol] 7.7 fL 7.4 - 10.4 fL [place] Platelets (Bld) [#/Vol] 186 10*3/uL 140 - 440 10*3/uL [place] RBC (Bld) [#/Vol] 4.03 10*6/uL 3.8 - 5.2 10*6/uL [place] WBC (Bld) [#/Vol] 5.4 10*3/uL 3.6 - 10.7 10*3/uL [place] Test Performed by [id number] [place] [address] Hemogram w/ Autodiffon 09-13 Abs Baso Cnt 0.0 10*3/uL Normal 0.0-0.2 [facility] Comment on above: Performed By: #### H EMDF #### [address] Abs Neutrophile Cnt 3.6 10*3/uL Normal 1.8-7.0 [facility] Comment on above: Performed By: #### H EMDF #### [address] Basophils/100 WBC (Bld) 0.7 % Normal 0.0-2.0 [facility] Comment on above: Performed By: #### H EMDF #### [address] Eosinophils (Bld) [#/Vol] 0.3 10*3/uL Normal 0.0-0.5 [facility] Comment on above: Performed By: #### H EMDF #### [address] Eosinophils/100 WBC (Bld) 5.3 % Normal 1.0-6.0 [facility] Comment on above: Performed By: #### H EMDF #### [address] Erythrocyte distribution width (RBC) [Ratio] 13.7 % Normal 11.5-14.5 [facility] Comment on above: Performed By: #### H EMDF #### [place] [address], [place] Granulocytes/100 WBC (Bld) 65.5 % Normal 40.0-80.0 [facility] Comment on above: Performed By: #### H EMDF #### [place] [address], [place] Hematocrit (Bld) [Volume fraction] 37.4 % Normal 35.0-47.0 [facility] Comment on above: Performed By: #### H EMDF #### [place] [address], [place] Hemoglobin (Bld) [Mass/Vol] 12.2 g/dL Normal 11.7-16.0 [facility] Comment on above: Performed By: #### H EMDF #### [place] [address], [place] Lymphocytes (Bld) [#/Vol] 1.2 10*3/uL Normal 1.0-4.3 [facility] Comment on above: Performed By: #### H EMDF #### [place] [address], [place] Lymphocytes/100 WBC (Bld) 22.4 % Normal 20.0-40.0 [facility] Comment on above: Performed By: #### H EMDF #### [place] [address], [place] MCH (RBC) [Entitic mass] 30.3 pg Normal 26.0-34.0 [facility] Comment on above: Performed By: #### H EMDF #### [place] [address], [place] MCHC 32.6 % Normal 32.0-36.0 [facility] Comment on above: Performed By: #### H EMDF #### [place] [address], [place] MCV (RBC) [Entitic vol] 92.8 fL Normal 79.0-98.0 [facility] Comment on above: Performed By: #### H EMDF #### [address] Monocytes (Bld) [#/Vol] 0.3 10*3/uL Normal 0.0-0.8 [facility] Comment on above: Performed By: #### H EMDF #### [place] [address] [address], [place] Monocytes/100 WBC (Bld) 6.1 % Normal 2.0-10.0 [facility] Comment on above: Performed By: #### H EMDF #### [address] Platelet mean volume (Bld) [Entitic vol] 7.7 fL Normal 7.4-10.4 [facility] Comment on above: Performed By: #### H EMDF #### [address] Platelets (Bld) [#/Vol] 186 10*3/uL Normal 140-440 [facility] Comment on above: Performed By: #### H EMDF #### [address] RBC (Bld) [#/Vol] 4.03 10*6/uL Normal 3.80-5.20 [facility] Comment on above: Performed By: #### H EMDF #### [place] [address] [address], [place] WBC (Bld) [#/Vol] 5.4 10*3/uL Normal 3.6-10.7 [facility] Comment on above: Performed By: #### H EMDF #### [address] Lactic Acidon 09-13-2020 Lactate [Moles/Vol] 1.6 mmol/L Normal 0.7-2.0 [facility] Comment on above: Performed By: #### B NP3, TROPN, LACT3, BMP3 #### [address] [address] Lactic Acid, Plasmaon 2019 Lactate [Moles/Vol] 1.6 mmol/L 0.7 - 2 mmol/L [place], [place] Test Performed by [address] [address] [place], [place] NT pro BNPon 09-13-2020 Natriuretic peptide B (Bld) [Mass/Vol] 1195 pg/mL High 0-450 [facility] Comment on above: Performed By: #### B NP3, TROPN, LACT3, BMP3 #### [address] [address] Otheron 09-13-2020 Test Performed by [id number] [place] [address] Respiratory Panel, Molecular , with COVID-19 (Restricted: peds pts or suitable admitted adults)on 09-13-2020 Respiratory Panel Molecular, with COVID NEGATIVE: No targets were detected by the [employer] (1BOG) Upper Respiratory Pathogens PCR Panel. _ Expected Result: Not Detected The [employer] Upper Respiratory Pathogens PCR Panel can detect the following targets: SARS-CoV-2, Adenovirus, Coronavirus 229E, Coronavirus HKU1, Coronavirus NL63, Coronavirus OC43, Human Metapneumovirus, Human Rhinovirus/Enterovirus , Influenza A, Influenza B, Parainfluenza Virus 1, Parainfluenza Virus 2, Parainfluenza Virus 3, Parainfluenza Virus 4, Respiratory Syncytial Virus, Bordetella pertussis, Bordetella parapertussis, Chlamydia pneumoniae, Mycoplasma pneumoniae. Negative results do not preclude SARS-CoV-2 infection and should not be used as the sole basis for treatment or other patient management decisions. This assay was developed by [employer] and distributed under an Emergency Use Authorization (EUA) granted by the FDA for the qualitative detection of SARS-CoV-2 nucleic acid. Provider and patient fact sheets can be found at https://www.fda.gov/me nancy/896204/download and https://www.fda.gov/me nancy/590840/download. [place], [place] Test Performed by [facility], [address] [place] [id number] [place], [place] Troponinon 09-13-2020 Troponin I.cardiac [Mass/Vol] ng/mL 0 - 0.034 ng/mL [place] Comment on above: . Troponin Ion 09-13-2020 Troponin I.cardiac [Mass/Vol] ng/mL Normal 0.000-0.034 [facility] Comment on above: Result Comment: . Performed By: #### B NP3, TROPN, LACT3, BMP3 #### [address] [address] Urinalysison 09-13-2020 Appearance (U) Clear Clear NA [place], [place] Comment on above: . Bilirubin Urine Negative Negative mg/dL [place] Comment on above: . Color (U) Yellow Lt. Yellow [place], [place] Comment on above: . Glucose, Ur Normal Normal (<70) mg/dL [place] Comment on above: . Ketones Ql (U) Negative Negative mg/dL [place] Comment on above: . LEUKOCYTES, UA Negative Negative Nolvia/uL [place] Comment on above: . Nitrite, Urine Negative Negative NA [place], [place] Comment on above: . Occult Blood,Urine Negative Negative mg/dL [place] Comment on above: . pH (U) 7.5 [pH] [place] Comment on above: . Protein (U) [Mass/Vol] Negative Negat hawa mg/dL [place] Comment on above: . Specific [place], Urine 1.014 [place], [place] Comment on above: . Urobilinogen, Urine Normal Normal (0-1) mg/dL [place] Comment on above: . Test Performed by [facility], [address] [place] [id number] [place] [address] XR CHEST PORTABLEon 09-13-20 20 Patient Name: LISA UP Diagnostic Radiology ACCESSION EXAM DATE/TIME PROCEDURE ORDERING PROVIDER [id number] 09/13/2020 14:02 EST CR Chest Portable MD FERRER MARK D CPT code 02719 Reason For Exam (CR Chest Portable) cough Report PORTABLE CHEST X-RAY CLINICAL INDICATION: cough A portable frontal view of the chest was obtained. COMPARISON: 09/06/2020 FINDINGS: The cardiac silhouette is within normal limits. No focal consolidation is seen within the lungs. Slight blunting of the left costophrenic angle is again noted, which may represent a trace left pleural effusion. This is similar to the prior study. There is no pneumothorax. There are degenerative changes of the spine. IMPRESSION: No significant change when compared with the previous study. Report Dictated on --- Final --- Dictated: 09/13/2020 1:28 pm Dictating Physician: MD ELIAS JONATHAN R Signed Date and Time: 09/13/2020 1:28 pm Signed by: MD ELIAS JONATHAN R Transcribed Date and Time: 09/13/2020 1:28 [facility] Incoming Radiology Results From [facility] - 09/13/2020 2:02 PM EST [facility]: [id number] ACCESSION EXAM DATE/TIME PROCEDURE ORDERING PROVIDER [id number] 09/13/2020 14:02 EST CR Chest Portable MD FERRER MARK D CPT code 70814 Reason For Exam (CR Chest Portable) cough Report PORTABLE CHEST X-RAY CLINICAL INDICATION: cough A portable frontal view of the chest was obtained. COMPARISON: 09/06/2020 FINDINGS: The cardiac silhouette is within normal limits. No focal consolidation is seen within the lungs. Slight blunting of the left costophrenic angle is again noted, which may represent a trace left pleural effusion. This is similar to the prior study. There is no pneumothorax. There are degenerative changes of the spine. IMPRESSION: No significant change when compared with the previous study. Report Dictated on --- Final --- Dictated: 09/13/2020 1:28 pm Dictating Physician: MD ELIAS JONATHAN R Signed Date and Time: 09/13/2020 1:28 pm Signed by: MD ELIAS JONATHAN R Transcribed Date and Time: 09/13/2020 1:28 [facility] [place] [place] CULTURE URINEon 09-08-2020 CULTURE URINE 1 Organism Proteus mirabilis >100,000 CFU/ml 1 Organism Antibiotic Result Intrp Ampicillin(VESTA) <= 2 S Cefazolin(VESTA) <= 4 S Ceftriaxone(VESTA) <= 1 S Cefepime(VESTA) <= 1 S Aztreonam(VESTA) <= 1 S Amoxicillin/Clavulanic Acid(VESTA) 4 S Ampicillin/Sulbactam(M IC) <= 2 S Pip/Tazobactam(VESTA) <= 4 S Meropenem(VESTA) 1 S Ciprofloxacin(VESTA) <= 0.25 S Trimeth/Sulfa(VESTA) <= 20 S Nitrofurantoin(VESTA) R Gentamicin(VESTA) <= 1 S Amikacin(VESTA) <= 2 S Normal [facility] Comment on above: Performed By: #### H [facility] #### [address] [address] CR Chest Portableon 09-06-20 20 CR Chest Portable Patient Name: LISA UP Diagnostic Radiology ACCESSION EXAM DATE/TIME PROCEDURE ORDERING PROVIDER [id number] 09/06/2020 17:28 EST CR Chest Portable MD CASTORENA JESSE CPT code 74236 Reason For Exam (CR Chest Portable) Fever Report HISTORY: Fever Frontal slightly rotated view the chest with comparison study from 2018. FINDINGS: Chest is negative for age except for left costophrenic blunting due to small amount of left pleural fluid or pleural fibrosis Report Dictated on Workstation: [id number] Final Dictated: 09/06/2020 5:19 pm Dictating Physician: MD DORADO WILLIAM Signed Date and Time: 09/06/2020 5:21 pm Signed by: MD DORADO WILLIAM Transcribed Date and Time: 09/06/2020 5:19 Normal [facility] Comp Metabolic Panelon 09-06 ALT [Catalytic activity/Vol] 10 U/L Normal 0-34 [facility] Comment on above: Result Comment: The ALT test is performed by an updated assay method. Please note that the reference intervals have been changed and are now sex specific. Performed By: #### H GILDA LAM3 #### [facility] [address], [place] Calcium [Mass/Vol] 8.9 mg/dL Normal 8.4-10.4 [facility] Comment on above: Performed By: #### H GILDA LAM3 #### [facility] [address], [place] Glucose [Mass/Vol] 120 mg/dL High 70-100 [facility] Comment on above: Performed By: #### H GENARO CMP3 #### [facility] [address], [place] ALP [Catalytic activity/Vol] 64 U/L Normal 38-126 [facility] Comment on above: Performed By: #### H GILDA LAM3 #### [facility] [address], [place] Anion Gap 8 Normal [facility] Comment on above: Performed By: #### H GILDA LAM3 #### [facility] [address], [place] AST [Catalytic activity/Vol] 32 U/L Normal 15-46 [facility] Comment on above: Performed By: #### H GENARO CMP3 #### [facility] [address], [place] Bilirubin [Mass/Vol] 0.8 mg/dL Normal 0.2-1.3 [facility] Comment on above: Performed By: #### H GILAD LAM3 #### [address] [address] CO2 [Moles/Vol] 27 mmol/L Normal 22-30 [facility] Comment on above: Performed By: #### H GILDA LAM3 #### [address] [address] Creatinine [Mass/Vol] 0.69 mg/dL Normal 0.52-1.25 [facility] Comment on above: Performed By: #### H GILDA LAM3 #### [address] [address] GFR/1.73 sq M.predicted among blacks MDRD (S/P/Bld) [Vol rate/Area] mL/min/{1.73_m2} Normal >60 [facility] Comment on above: Performed By: #### H GILDA LAM3 #### [address] [address] GFR/1.73 sq M.predicted among non-blacks MDRD (S/P/Bld) [Vol rate/Area] 84.1 mL/min/{1.73_m2} Normal >60 [facility] Comment on above: Result Comment: KDIG O guidelines provide the following GFR categories: Stage GFR(ml/min/1.73 m2) Terms G1 >=90 Normal or high G2 60-89 Mildly decreased* G3a 45-59 Mildly to moderately decreased G3b 30-44 Moderately to severely decreased G4 15-29 Severely decreased G5 <15 Kidney failure *Relative to young adult level. In the absence of evidence of kidney damage, neither GFR category G1 nor G2 fulfill the criteria for CKD. The CKD-EPI equation is validated in individuals 18 years of age and older. Currently the best equation for estimating glomerular filtration rate (GFR) from serum creatinine in children is the Bedside Sinha equation. It is less accurate in patients with extremes of muscle mass, restriction of dietary protein, ingestion of creatine, extra-renal metabolism of creatinine, or treatment with medications that affect renal tubular creatinine secretion. Performed By: #### H GILDA LAM3 #### [facility] [address], [place] Protein [Mass/Vol] 6.8 g/dL Normal 6.3-8.2 [facility] Comment on above: Performed By: #### H EMDF, CMP3 #### [facility] [address], [place] Urea nitrogen [Mass/Vol] 15 mg/dL Normal 7-20 [facility] Comment on above: Performed By: #### H EMDF CMP3 #### [facility] [address], [place] Potassium [Moles/Vol] 3.5 mmol/L Normal 3.5-5.1 [facility] Comment on above: Performed By: #### H EMDF, CMP3 #### [place] [address], [place] Sodium [Moles/Vol] 138 mmol/L Normal 135-145 [facility] Comment on above: Performed By: #### H EMDAgatha CMP3 #### [facility] [address], [place] Albumin [Mass/Vol] 3.3 g/dL Low 3.5-5.0 [facility] Comment on above: Performed By: #### H EMDAgatha, CMP3 #### [facility] [address], [place] Chloride [Moles/Vol] 104 mmol/L Normal 98-107 [facility] Comment on above: Performed By: #### H EMDAgatha CMP3 #### [facility] [address], [place] Complete Urinalysison 2019 Appearance (U) Turbid Abnormal Clear [facility] Comment on above: Result Comment: . Performed By: #### C UA2 #### [facility] [address], [place] Bacteria Moderate Abnormal Negative [facility] Comment on above: Result Comment: . Performed By: #### C UA2 #### [place] [address] [address], [place] Bilirubin,Urine Negative Normal Negative [facility] Comment on above: Result Comment: . Performed By: #### C UA2 #### [facility] [address], [place] Cast, Hyaline Negative Normal Negative [facility] Comment on above: Result Comment: . Performed By: #### C UA2 #### [facility] [address], [place] Color (U) Yellow Normal Lt. Yellow [facility] Comment on above: Result Comment: . Performed By: #### C UA2 #### [facility] [address], [place] Glucose Ql (U) Normal Normal Normal (<70) [facility] Comment on above: Result Comment: . Performed By: #### C UA2 #### [place] [address] [address], [place] Ketone,Urine Negative Normal Negative [facility] Comment on above: Result Comment: . Performed By: #### C UA2 #### [place] [address], [place] Leukocytes,Urine 500 [place]ol[place]/uL Abnormal Negative [facility] Comment on above: Result Comment: . Performed By: #### C UA2 #### [place] [address] [address], [place] Mucous Threads Few Normal Negative [facility] Comment on above: Result Comment: . Performed By: #### C UA2 #### [place] [address] [address], [place] Nitrites,Urine Negative Normal Negative [facility] Comment on above: Result Comment: . Performed By: #### C UA2 #### [facility] [address], [place] Non-Squamous Epithelial 1 /[HPF] Abnormal Negative [facility] Comment on above: Result Comment: . Performed By: #### C UA2 #### [place] [address] [address], [place] Occult Blood,Urine 0.2 mg/dL Abnormal Negative [facility] Comment on above: Result Comment: . Performed By: #### C UA2 #### [place] [address] [address], [place] pH,Urine 6.5 Normal 5.0-8.0 [facility] Comment on above: Result Comment: . Performed By: #### C UA2 #### [place] [address] [address], [place] Protein (U) [Mass/Vol] 50 mg/dL Abnormal Negative [facility] Comment on above: Result Comment: . Performed By: #### C UA2 #### [place] [address] [address], [place] RBC, Urine 6 - 10 Abnormal 0-2 [facility] Comment on above: Result Comment: . Performed By: #### C UA2 #### [place] [address], [place] Specific [place],Urine 1.023 Normal 1.005 - 1.030 [facility] Comment on above: Result Comment: . Performed By: #### C UA2 #### [place] [address] [address], [place] Squamous Epithelial 6 - 10 Abnormal 3-5 [facility] Comment on above: Result Comment: . Performed By: #### C UA2 #### [place] [address] [address], [place] Urobilinogen,Urine Normal Normal Normal (0-1) [facility] Comment on above: Result Comment: . Performed By: #### C UA2 #### [place] [address] [address], [place] WBC LM.HPF (Urine sed) [#/Area] /[HPF] Abnormal 0-5 [facility] Comment on above: Result Comment: . Performed By: #### C UA2 #### [place] [address], [place] Comprehensive Metabolic Pane steffi 09-06-2020 Albumin [Mass/Vol] 3.3 g/dL Low 3.5 - 5 g/dL [facility], [place] ALP [Catalytic activity/Vol] 64 U/L 38 - 126 U/L [place], [place] ALT [Catalytic activity/Vol] 10 U/L 0 - 34 U/L [place] Comment on above: The ALT test is perf ormed by an updated assay method. Please note that the reference intervals have been changed and are now sex specific. Anion gap [Moles/Vol] 8 mmol/L [place], [place] AST [Catalytic activity/Vol] 32 U/L 15 - 46 U/L [place] Bilirubin Ql (U) 0.8 mg/dL 0.2 - 1.3 mg/dL [place] Calcium [Mass/Vol] 8.9 mg/dL 8.4 - 10. 4 mg/dL [place] Chloride [Moles/Vol] 104 mmol/L 98 - 10 7 mmol/L [place] CO2 [Moles/Vol] 27 mmol/L 22 - 30 mmol/L [place] Creatinine [Mass/Vol] 0.69 mg/dL 0.52 - 1.25 mg/dL [place] EGFR IF NonAfrican [place]olan 84.1 mL/min >60 [place] Comment on above: KDIGO guidelines pro vide the following GFR categories: Stage GFR(ml/min/1.73 m2) Terms G1 >=90 Normal or high G2 60-89 Mildly decreased* G3a 45-59 Mildly to moderately decreased G3b 30-44 Moderately to severely decreased G4 15-29 Severely decreased G5 <15 Kidney failure *Relative to young adult level. In the absence of evidence of kidney damage, neither GFR category G1 nor G2 fulfill the criteria for CKD. The CKD-EPI equation is validated in individuals 18 years of age and older. Currently the best equation for estimating glomerular filtration rate (GFR) from serum creatinine in children is the Bedside Sinha equation. It is less accurate in patients with extremes of muscle mass, restriction of dietary protein, ingestion of creatine, extra-renal metabolism of creatinine, or treatment with medications that affect renal tubular creatinine secretion. GFR/1.73 sq M predicted among blacks MDRD (S/P/Bld) [Vol rate/Area] mL/min/{1.73_m2} >60 mL/min [place] Glucose [Mass/Vol] 120 mg/dL High 70 - 100 mg/dL [place] Interpretation and review of laboratory results Abnormal [place] Potassium [Moles/Vol] 3.5 mmol/L 3.5 - 5.1 mmol/L [place] Protein [Mass/Vol] 6.8 g/dL 6.3 - 8.2 g/dL [place] Sodium [Moles/Vol] 138 mmol/L 135 - 145 mmol/L [place] Urea nitrogen [Mass/Vol] 15 mg/dL 7 - 20 mg/dL [place] Test Performed by [facility], [address] [place] [id number] [place], [place] ED Provider Noteon 0 ED Provider Note Emergency Department Encounter [facility] EMERGENCY DEPT Patient: Lisa Up : 1945 Date of Evaluation: 09/06/2020 ED Provider: ENRICO CASTORENA MD During my exam I wore PPE including N95, surgical mask, and goggles TRIAGE NOTE I saw the patient in triage to initiate preliminary assessment and orders. Please see other providers notations for clinical course, results, initial diagnostic impressions, and disposition. BRIEF HPI: In brief, Lisa Up is a 74 y.o. female that presents for evaluation of fever chills or urinary symptoms. Patient states she was at [facility] on Friday, she was there because she was fatigued did not feel good had a low-grade temperature, she apparently had a catheterized urine sample, and then the following day noticed hematuria and now is having frequency burning and dysuria. She still feels tired fatigued and weak she has had a mild cough. She has had 2 COVID test that are negative past.. LIMITED PHYSICAL EXAM: ED Triage Vitals Enc Vitals Group BP 09/06/20 1551 (!) 154/79 Pulse 09/06/20 1549 91 Resp 09/06/20 1549 18 Temp 09/06/20 1549 97.5 ?F (36.4 ?C) Temp Source 09/06/20 1549 Temporal SpO2 09/06/20 1549 95 % Weight 09/06/20 1549 235 lb (106.6 kg) Height 09/06/20 1549 5' 2 (1.575 m) Head Circumference -- Peak Flow -- Pain Score -- Pain Loc -- Pain Edu? -- Excl. in GC? -- ABDOMEN: Bowel sounds present, soft, nontender, no guarding rebound or rigidity, no palpable masses or aneurysm. LUNGS: Breath sounds are equal, clear to auscultation, no wheeze retractions or cyanosis and no crackles present. BACK: No thoracic lumbar or flank pain. INITIAL CLINICAL COURSE: I will initiate diagnostics/treatments as indicated. I did confirm that she had a recent negative COVID test on 08/30 and one prior to that that was negative as well, we will get urinary sample and sent for culture laboratory studies and a chest x-ray.. Please see other providers notations for results, and final diagnosis and disposition. ENRICO CASTORENA MD [employer] Enrico Castorena MD 09/06/20 1609 [facility] ED Provider Note [facility] EMERGENCY DEPT EMERGENCY DEPARTMENT ENCOUNTER Pt Name: Lisa Up Birthdate 1945 Date of evaluation: 09/06/2020 Provider: Kaden Kessler, DO CHIEF COMPLAINT Chief Complaint Patient presents with ? Chills Pt coming from home c/o headache, chills, fever and sweats for the past 5 weeks. Pt recently had neg covid swab. ? Sweats ? Other HISTORY OF PRESENT ILLNESS (Location/Symptom, Timing/Onset, Context/Setting, Quality, Duration, Modifying Factors, Severity) Note limiting factors. I wore a n95 mask for the entirety of this encounter. Lisa Up is a 74 y.o. female who presents to the emergency department with multiple complaints for the past 5 weeks. Patient states all of her symptoms started around Thanksgiving time. Patient states she has intermittent chest pains, shortness breath, cough, congestion, abdominal pain, nausea, vomiting, fever, chills, fatigue, decreased appetite, dysuria, hematuria. Patient states she has been seen at [facility] twice for these symptoms. Patient was admitted for chest pain rule out during one of the admissions, had a negative stress test at this time. Patient has had negative COVID testing ?2. Patient states her last measured temperature was 100.71 week ago. Patient states her chills are debilitating at times. Patient states last time she felt the chills was this morning. Nursing Notes were reviewed. REVIEW OF SYSTEMS (2+ for level 4; 10+ for level 5) 14 systems reviewed and otherwise acutely negative except as in the [place]. PAST MEDICAL HISTORY Past Medical History: Diagnosis Date ? Anemia ? Anxiety ? Arthritis ? Chronic low back pain ? Depression ? GERD (gastroesophageal reflux disease) ? HTN (hypertension) ? Hyperlipidemia ? Incontinence of urine ? Morbid obesity (HCC) ? MRSA (methicillin resistant staph aureus) culture positive POW infection back ? Neuropathy ? CHRISTIANA (obstructive sleep apnea) ? Sleep apnea ? Spinal stenosis of lumbar region ? Thrombosis of popliteal vein, right (HCC) SURGICAL HISTORY Past Surgical History: Procedure Laterality Date ? HYSTERECTOMY, TOTAL ABDOMINAL ? KIDNEY SURGERY partial nephrectomy ? OTHER SURGICAL HISTORY 08/07/2018 lumbar I and D ? SPINE SURGERY lumbar fusion ? TOTAL KNEE ARTHROPLASTY Bilateral CURRENT MEDICATIONS Previous Medications APIXABAN (ELIQUIS) 5 MG TABS TABLET Take 1 tablet by mouth 2 times daily BACLOFEN (LIORESAL) 10 MG TABLET Take 10 mg by mouth 2 times daily as needed CARVEDILOL (COREG) 25 MG TABLET Take 25 mg by mouth 2 times daily (with meals) DIPHENHYDRAMINE (BENADRYL) 25 MG TABLET Take 25 mg by mouth every 4 hours as needed for Itching FERROUS SULFATE 325 (65 FE) MG TABLET Take 325 mg by mouth daily (with breakfast) FUROSEMIDE (LASIX) 40 MG TABLET Take 40 mg by mouth daily GABAPENTIN (NEURONTIN) 300 MG CAPSULE Take 300 mg by mouth 3 times daily. . HYDRALAZINE (APRESOLINE) 25 MG TABLET Take 25 mg by mouth 3 times daily Take 1-2 tablets TID HYDROCHLOROTHIAZIDE (HYDRODIURIL) 12.5 MG TABLET Take 12.5 mg by mouth 2 times daily LACTOBACILLUS (ACIDOPHILUS PO) Take by mouth 2 times daily MELATONIN 3 MG TABS TABLET Take 1 tablet by mouth nightly MICONAZOLE (MICOTIN) 2 % POWDER Apply topically 2 times daily. MINERAL OIL-HYDROPHILIC PETROLATUM (AQUAPHOR) OINTMENT Apply topically as needed. MIRTAZAPINE (REMERON) 15 MG TABLET Take 15 mg by mouth nightly ONDANSETRON (ZOFRAN) 4 MG TABLET Take 4 mg by mouth every 4 hours as needed for Nausea or Vomiting PANTOPRAZOLE (PROTONIX) 40 MG TABLET Take 1 tablet by mouth every morning (before breakfast) POTASSIUM CHLORIDE (KLOR-CON M) 20 MEQ EXTENDED RELEASE TABLET Take 1 tablet by mouth 2 times daily TRAMADOL (ULTRAM) 50 MG TABLET Take 50 mg by mouth every 4 hours as needed for Pain.. ALLERGIES Latex, Amlodipine besylate, Erythromycin, Lisinopril, and Nafcillin FAMILY HISTORY Family History Problem Relation Age of Onset ? Cancer Mother lung ? Heart Disease Father ? Heart Attack Brother ? Other Brother aneurysm SOCIAL HISTORY Social History Socioeconomic History ? Marital status: Spouse name: Not on file ? Number of children: Not on file ? Years of education: Not on file ? Highest education level: Not on file Occupational History ? Not on file Social Needs ? Financial resource strain: Not on file ? Food insecurity Worry: Not on file Inability: Not on file ? Transportation needs Medical: Not on file Non-medical: Not on file Tobacco Use ? Smoking status: Never Smoker ? Smokeless tobacco: Never Used Substance and Sexual Activity ? Alcohol use: No ? Drug use: No ? Sexual activity: Not Currently Lifestyle ? Physical activity Days per week: Not on file Minutes per session: Not on file ? Stress: Not on file Relationships ? Social connections Talks on phone: Not on file Gets together: Not (more content not included)... Normal [facility] Hemogram (CBC) w/Auto Diffon 09-06-2020 Absolute Baso # 0.0 10*3/uL 0 - 0.2 10*3/uL [place], [place] Absolute Neut # 5.9 10*3/uL 1.8 - 7 10*3/uL [place] Basophils/100 WBC (Bld) 0.2 % 0 - 2 % [place] Eosinophils (Bld) [#/Vol] 0.6 10*3/uL High 0 - 0.5 10*3/uL [place] Eosinophils/100 WBC (Bld) 6.5 % High 1 - 6 % [place] Erythrocyte distribution width (RBC) [Ratio] 13.7 % 11.5 - 14.5 % [place] Granulocytes/100 WBC (Bld) 68.1 % 40 - 80 % [place] Hematocrit (Bld) [Volume fraction] 38.9 % 35 - 47 % [place] Hemoglobin (Bld) [Mass/Vol] 12.7 g/dL 11.7 - 16 g/dL [place] Interpretation and review of laboratory results Abnormal [place] Lymphocytes (Bld) [#/Vol] 1.8 10*3/uL 1 - 4.3 10*3/uL [place] Lymphocytes/100 WBC (Bld) 20.1 % 20 - 40 % [place] MCH (RBC) [Entitic mass] 30.5 pg 26 - 34 pg [place] MCHC (RBC) [Mass/Vol] 32.7 % 32 - 36 % [place] MCV (RBC) [Entitic vol] 93.2 fL 79 - 98 fL [place], [place] Monocytes (Bld) [#/Vol] 0.4 10*3/uL 0 - 0.8 10*3/uL [place] Monocytes/100 WBC (Bld) 5.1 % 2 - 10 % [place], [place] Platelet mean volume (Bld) [Entitic vol] 7.4 fL 7.4 - 10.4 fL [place] Platelets (Bld) [#/Vol] 216 10*3/uL 140 - 440 10*3/uL [place] RBC (Bld) [#/Vol] 4.17 10*6/uL 3.8 - 5.2 10*6/uL [place] WBC (Bld) [#/Vol] 8.7 10*3/uL 3.6 - 10.7 10*3/uL [place] Test Performed by [facility], [address] [place] [id number] [place] Hemogram w/ Autodiffon 09-06 Abs Baso Cnt 0.0 10*3/uL Normal 0.0-0.2 [facility] Comment on above: Performed By: #### H GENRAO CMP3 #### [facility] [employer] [address] [id number] Abs Neutrophile Cnt 5.9 10*3/uL Normal 1.8-7.0 [facility] Comment on above: Performed By: #### H EMDF CMP3 #### [facility] [address], [place] Basophils/100 WBC (Bld) 0.2 % Normal 0.0-2.0 [facility] Comment on above: Performed By: #### H EMDF CMP3 #### [facility] [address], [place] Eosinophils (Bld) [#/Vol] 0.6 10*3/uL High 0.0-0.5 [facility] Comment on above: Performed By: #### H EMDF CMP3 #### [place] [address] [address], [place] Eosinophils/100 WBC (Bld) 6.5 % High 1.0-6.0 [facility] Comment on above: Performed By: #### H EMDF CMP3 #### [place] [address] [place], [place] Erythrocyte distribution width (RBC) [Ratio] 13.7 % Normal 11.5-14.5 [facility] Comment on above: Performed By: #### H EMDF CMP3 #### [place] [address] [place], [place] Granulocytes/100 WBC (Bld) 68.1 % Normal 40.0-80.0 [facility] Comment on above: Performed By: #### H EMDF CMP3 #### [place] [address] [address], [place] Hematocrit (Bld) [Volume fraction] 38.9 % Normal 35.0-47.0 [facility] Comment on above: Performed By: #### H EMDF CMP3 #### [address] Hemoglobin (Bld) [Mass/Vol] 12.7 g/dL Normal 11.7-16.0 [facility] Comment on above: Performed By: #### H EMDF CMP3 #### [place] [address] [place], [place] Lymphocytes (Bld) [#/Vol] 1.8 10*3/uL Normal 1.0-4.3 [facility] Comment on above: Performed By: #### H GENARO CMP3 #### [facility] [address], [place] Lymphocytes/100 WBC (Bld) 20.1 % Normal 20.0-40.0 [facility] Comment on above: Performed By: #### H GENARO CMP3 #### [facility] [address], [place] MCH (RBC) [Entitic mass] 30.5 pg Normal 26.0-34.0 [facility] Comment on above: Performed By: #### H GENARO CMP3 #### [place] [address] [address], [place] MCHC 32.7 % Normal 32.0-36.0 [facility] Comment on above: Performed By: #### H GENARO CMP3 #### [place] [address] [address], [place] MCV (RBC) [Entitic vol] 93.2 fL Normal 79.0-98.0 [facility] Comment on above: Performed By: #### H GENARO CMP3 #### [place] [address] [address], [place] Monocytes (Bld) [#/Vol] 0.4 10*3/uL Normal 0.0-0.8 [facility] Comment on above: Performed By: #### H GENARO CMP3 #### [place] [address] [address], [place] Monocytes/100 WBC (Bld) 5.1 % Normal 2.0-10.0 [facility] Comment on above: Performed By: #### H GENARO CMP3 #### [place] [address] [address], [place] Platelet mean volume (Bld) [Entitic vol] 7.4 fL Normal 7.4-10.4 [facility] Comment on above: Performed By: #### H GENARO CMP3 #### [facility] [address] [place] [address] Platelets (Bld) [#/Vol] 216 10*3/uL Normal 140-440 [facility] Comment on above: Performed By: #### H EMDF, CMP3 #### [facility] [address] [place] [address] RBC (Bld) [#/Vol] 4.17 10*6/uL Normal 3.80-5.20 [facility] Comment on above: Performed By: #### H EMDF, CMP3 #### [facility] [address] [place] [address] WBC (Bld) [#/Vol] 8.7 10*3/uL Normal 3.6-10.7 [facility] Comment on above: Performed By: #### H EMDF, CMP3 #### [facility] [address] [place] [address] Urinalysison 09-06-2020 Appearance (U) Turbid Abnormal Clear [place] Comment on above: . Bacteria, UA Moderate Abnormal Negative /[HPF] [place] Comment on above: . Bilirubin Urine Negative Negative mg/dL [place] Comment on above: . Color (U) Yellow Lt. Yellow NA [place] Comment on above: . Glucose, Ur Normal Normal (<70) mg/dL [place] Comment on above: . Hyaline Casts, UA Negative Negative /[LPF] [place] Comment on above: . Interpretation and review of laboratory results Abnormal [place] Ketones Ql (U) Negative Negative mg/dL [place] Comment on above: . LEUKOCYTES, UA 500 Abnormal Negative [place]/uL [place] Comment on above: . Mucous Threads Few Negative /[LPF] [place] Comment on above: . Nitrite, Urine Negative Negative [place] Comment on above: . Non-Squamous Epithelial 1 /[HPF] Abnormal Negative [place] Comment on above: . Occult Blood,Urine 0.2 mg/dL Abnormal Negative [place] Comment on above: . pH (U) 6.5 [pH] [place] Comment on above: . Protein (U) [Mass/Vol] 50 mg/dL Abnormal Negative [place] Comment on above: . RBC (U) [#/Vol] 6-10 Abnormal 0 - 2 /[HPF] [place] Comment on above: . Specific [place], Urine 1.023 [place] Comment on above: . Squam Epithel, UA 6-10 Abnormal 3 - 5 /[HPF] [place] Comment on above: . Urobilinogen, Urine Normal Normal (0-1) mg/dL [place] Comment on above: . WBC, UA >100 Abnormal 0 - 5 /[HPF] [place] Comment on above: . Test Performed by [facility], [address] [place] [id number] [place] XR CHEST PORTABLEon 09-06-20 [facility] Incoming Radiology Results From [facility] - 09/06/2020 5:28 PM EST Patient Name: LISA UP Diagnostic Radiology ACCESSION EXAM DATE/TIME PROCEDURE ORDERING PROVIDER [id number] 09/06/2020 17:28 EST CR Chest Portable MD CASTORENA JESSE CPT code 09273 Reason For Exam (CR Chest Portable) Fever Report HISTORY: Fever Frontal slightly rotated view the chest with comparison study from 2018. FINDINGS: Chest is negative for age except for left costophrenic blunting due to small amount of left pleural fluid or pleural fibrosis Report Dictated on Workstation: [id number] --- Final --- Dictated: 09/06/2020 5:19 pm Dictating Physician: MD DORADO WILLIAM Signed Date and Time: 09/06/2020 5:21 pm Signed by: MD DORADO WILLIAM Transcribed Date and Time: 09/06/2020 5:19 [place], [place] Patient Name: LISA UP Diagnostic Radiology ACCESSION EXAM DATE/TIME PROCEDURE ORDERING PROVIDER [id number] 09/06/2020 17:28 EST CR Chest Portable MD YESY, ENRICO CPT code 36411 Reason For Exam (CR Chest Portable) Fever Report HISTORY: Fever Frontal slightly rotated view the chest with comparison study from 2018. FINDINGS: Chest is negative for age except for left costophrenic blunting due to small amount of left pleural fluid or pleural fibrosis Report Dictated on Workstation: [id number] --- Final --- Dictated: 09/06/2020 5:19 pm Dictating Physician: MD DORADO WILLIAM Signed Date and Time: 09/06/2020 5:21 pm Signed by: MD DORADO WILLIAM Transcribed Date and Time: 09/06/2020 5:19 [facility], [place] XR Chest PA and Lateralon IMPRESSION: Bilateral small pleural effusions. Software Engineer Backend: IVAN Transcribe Date/Time: Aug 30 2020 6:54P Dictated by : RICARDO HDEZ MD This examination was interpreted and the report reviewed and electronically signed by: RICARDO HDEZ MD on Aug 30 2020 6:56PM EST DIVISION OF RADIOLOGY * * *Final Report* * * DATE OF EXAM: Aug 30 2020 6:46PM WOX [id number] - XR CHEST 2V FRONTAL/LAT / PROCEDURE REASON: Encounter by telehealth for suspected COVID-19 * * * * Physician Interpretation * * * * EXAMINATION: CHEST RADIOGRAPH (2 VIEW FRONTAL & LATERAL) CLINICAL HISTORY: Encounter by telehealth for suspected COVID-19 MQ: XC2_6 EXAM DATE/TIME: 08/30/2020 6:46 PM COMPARISON: Chest x-ray on 10/22/2019. RESULT: Lines, tubes, and devices: None. Lungs and pleura: Stable focal calcification or calcified granuloma overlying the right upper lung. The lungs are clear without consolidations. Probably minimal basilar atelectasis. There are bilateral small pleural effusions. No pneumothorax seen. Cardiomediastinal silhouette: Normal cardiomediastinal silhouette. Bones and soft tissues: There are degenerative changes in the spine. DIVISION OF RADIOLOGY Provider, [facility] - 08/30/2020 * * *Final Report* * * DATE OF EXAM: Aug 30 2020 6:46PM WOX [id number] - XR CHEST 2V FRONTAL/LAT / PROCEDURE REASON: Encounter by telehealth for suspected COVID-19 * * * * Physician Interpretation * * * * EXAMINATION: CHEST RADIOGRAPH (2 VIEW FRONTAL & LATERAL) CLINICAL HISTORY: Encounter by telehealth for suspected COVID-19 MQ: XC2_6 EXAM DATE/TIME: 08/30/2020 6:46 PM COMPARISON: Chest x-ray on 10/22/2019. RESULT: Lines, tubes, and devices: None. Lungs and pleura: Stable focal calcification or calcified granuloma overlying the right upper lung. The lungs are clear without consolidations. Probably minimal basilar atelectasis. There are bilateral small pleural effusions. No pneumothorax seen. Cardiomediastinal silhouette: Normal cardiomediastinal silhouette. Bones and soft tissues: There are degenerative changes in the spine. IMPRESSION IMPRESSION: Bilateral small pleural effusions. Software Engineer Backend: VIAN Transcribe Date/Time: Aug 30 2020 6:54P Dictated by : RICARDO HDEZ MD This examination was interpreted and the report reviewed and electronically signed by: RICARDO HDEZ MD on Aug 30 2020 6:56PM EST [facility] Radiology Study observation (narrative) [facility] XR Chest PA and LateralOrder ed By: Ccf Provider on 08-30-2020 [facility] Basic Panelon 05-02-2019 Calcium [Mass/Vol] 9.6 mg/dL Normal 8.5-10.1 [facility] Comment on above: Performed By: #### L P8 #### [place] [address] CO2 Blood 32 mEq/L Normal 21-32 [facility] Comment on above: Performed By: #### L P8 #### [place] [address] Creatinine [Mass/Vol] 0.63 mg/dL Normal 0.51-0.95 [facility] Comment on above: Performed By: #### L P8 #### [place] [address] Glucose [Mass/Vol] 111 mg/dL High 70-99 [facility] Comment on above: Performed By: #### L P8 #### [place] [address] Urea nitrogen [Mass/Vol] 10 mg/dL Normal 7-18 [facility] Comment on above: Performed By: #### L P8 #### [facility] [address] [place] [address] Chloride [Moles/Vol] 102 mmol/L Normal 98-109 [facility] Comment on above: Result Comment: Test ing performed on an Angelo i-STAT. Performed By: #### L P8 #### [facility] [address] [place] [address] Potassium [Moles/Vol] 3.3 mmol/L Low 3.5-4.9 [facility] Comment on above: Result Comment: Test ing performed on an Angelo i-STAT. Performed By: #### L P8 #### [place] [address] Sodium [Moles/Vol] 141 mmol/L Normal 138-146 [facility] Comment on above: Result Comment: Test ing performed on an Angelo i-STAT. Performed By: #### L P8 #### [place] [address] Hemogram/Manual Diffon 05-02 Abs. Baso 0.09 thou/cmm High 0.00-0.08 [facility] Comment on above: Performed By: #### L MCBD #### [place] [address] Abs. Eosin 0.18 thou/cmm Normal 0.00-0.41 [facility] Comment on above: Performed By: #### L MCBD #### [facility] [address] [place] [address] Abs. Lymph 3.78 thou/cmm High 1.50-3.65 [facility] Comment on above: Performed By: #### L MCBD #### [place] [address] Abs. [place] 0.79 thou/cmm Normal 0.20-1.00 [facility] Comment on above: Performed By: #### L MCBD #### [place] [id number] Abs. Neut (ANC) 3.96 thou/cmm Normal 3.00-5.67 [facility] Comment on above: Performed By: #### L MCBD #### [facility] [address] [place] [address] Anisocytosis Ql (Bld) Slight Normal [facility] Comment on above: Performed By: #### L MCBD #### [facility] [address] [place] [address] Atypical Lymph 15.0 % Normal [facility] Comment on above: Performed By: #### L MCBD #### [facility] [address] [place] [address] Basophil 1.0 % Normal [facility] Comment on above: Performed By: #### L MCBD #### [facility] [address] [place] [address] Eosinophil 2.0 % Normal [facility] Comment on above: Performed By: #### L MCBD #### [facility] [address] [place] [address] Lymphocyte 28.0 % Normal [facility] Comment on above: Performed By: #### L MCBD #### [facility] [address] [place] [address] Monocyte 9.0 % Normal [facility] Comment on above: Performed By: #### L MCBD #### [facility] [address] [place] [address] Platelets (Bld) [#/Vol] Normal Normal [facility] Comment on above: Performed By: #### L MCBD #### [facility] [address] [place] [address] Seg Neutrophil 45.0 % Normal [facility] Comment on above: Performed By: #### L MCBD #### [facility] [address] [place] [address] Toxic Granulation Few Normal [facility] Comment on above: Performed By: #### L MCBD #### [place] [address] Diff Type Manual Diff Normal [facility] Comment on above: Performed By: #### L MCBD #### [facility] [address] [place] [address] Erythrocyte distribution width (RBC) [Ratio] 14.3 % Normal 11.5-15.9 [facility] Comment on above: Performed By: #### L MCBD #### [facility] [address] [place] [address] Hematocrit (Bld) [Volume fraction] 40.0 % Normal 37.0-47.0 [facility] Comment on above: Performed By: #### L MCBD #### [facility] [address] [place] [address] Hemoglobin (Bld) [Mass/Vol] 12.5 g/dL Normal 12.0-16.0 [facility] Comment on above: Performed By: #### L MCBD #### [facility] [address] [place] [address] MCH (RBC) [Entitic mass] 29.5 pg Normal 27.0-31.0 [facility] Comment on above: Performed By: #### L MCBD #### [facility] [address] [place] [address] MCHC (RBC) [Mass/Vol] 31.3 % Low 32.0-36.0 [facility] Comment on above: Performed By: #### L MCBD #### [facility] [address] [place] [address] MCV (RBC) [Entitic vol] 94.3 fl Normal 81.0-99.0 [facility] Comment on above: Performed By: #### L MCBD #### [facility] [address] [place] [address] Platelet mean volume (Bld) [Entitic vol] 9.6 fl Normal 7.1-10.5 [facility] Comment on above: Performed By: #### L MCBD #### [facility] [address] [place], [place] [address] Platelets (Bld) [#/Vol] 212 thou/cmm Normal 150-400 [facility] Comment on above: Performed By: #### L MCBD #### [facility] [address] [place] [address] RBC (Bld) [#/Vol] 4.24 mil/cmm Normal 4.20-5.40 [facility] Comment on above: Performed By: #### L MCBD #### [facility] [address] [place] [address] WBC (Bld) [#/Vol] 8.8 thou/cmm Normal 4.8-10.5 [facility] Comment on above: Performed By: #### L MCBD #### [facility] [address] [place] [address] MDRD eGFRon 05-02-2019 GFR/1.73 sq M predicted among non-blacks MDRD (S/P/Bld) [Vol rate/Area] mL/min/{1.73_m2} Normal >60mL/min/1 .73m2 [facility] Comment on above: Result Comment: If t he patient is , multiply the result by 1.210. Performed By: #### L GFR #### [place] [address] Macroscopic Urinalysison Appearance (U) CLEAR Normal [facility] Comment on above: Performed By: #### L MACU #### [facility] [address] [place] [address] Bilirubin Urine Negative Normal Negative [facility] Comment on above: Performed By: #### L MACU #### [facility] [address] [place] [address] Color (U) YELLOW Normal [facility] Comment on above: Performed By: #### L MACU #### [place] [address] Glucose Ql (U) Negative Normal Negative [facility] Comment on above: Performed By: #### L MACU #### [place] [address] Hemoglobin,Urine Negative Normal Negative [facility] Comment on above: Performed By: #### L MACU #### [address] [address] Ketone Urine Negative Normal Negative [facility] Comment on above: Performed By: #### L MACU #### [place] [address] Leukocytes Esterase Negative Normal Negative [facility] Comment on above: Performed By: #### L MACU #### [place] [address] Nitrites Urine Negative Normal Negative [facility] Comment on above: Performed By: #### L MACU #### [place] [address] pH (U) 7.0 [pH] Normal 5.0-8.0 [facility] Comment on above: Performed By: #### L MACU #### [place] [address] Protein (U) [Mass/Vol] Negative Normal Negative [facility] Comment on above: Performed By: #### L MACU #### [place] [address] Specific [place], Ur 1.020 Normal 1.005-1.030 [facility] Comment on above: Performed By: #### L MACU #### [place] [address] Urobilinogen,Ur 0.2 EU/dL Normal 0.2-1.0 [facility] Comment on above: Performed By: #### L MACU #### [place] [address] Troponin Ion 05-02-2019 Troponin I.cardiac [Mass/Vol] ng/mL Normal <=0.07 [facility] Comment on above: Performed By: #### L TRP #### [place] [address] UA Completeon 02-22-2018 UA Blood 1+ Abnormal Negative [facility] Comment on above: Performed By: #### 8 [id number] ####[facility] [address] UA Bacteria Trace Abnormal None [facility] Comment on above: Performed By: #### 8 [id number] ####DEBORAH [facility] [address] [place] [address] UA Clarity Clear Normal Clear [facility] Comment on above: Performed By: #### 8 [id number] ####DEBORAH [facility] [employer] [address] [place] [address] UA Leuk Est Trace Normal Negative [facility] Comment on above: Performed By: #### 8 [id number] ####DEBORAH [facility] [address] [place] [address] UA Nitrite Negative Normal Negative [facility] Comment on above: Performed By: #### 8 [id number] ####DEBORAH [facility] [address] [place] [address] UA pH 7.0 Normal 4.6-8.0 [facility] Comment on above: Performed By: #### 8 [id number] ####DEBORAH [facility] [address] [place] [address] UA Protein Negative Normal Negative [facility] Comment on above: Performed By: #### 8 [id number] ####DEBORAH [facility] [address] [place] [address] UA Spec Grav 1.008 Normal 1.003-1.030 [facility] Comment on above: Performed By: #### 8 [id number] ####DEBORAH [facility] [address] [place] [address] UA Squam Epithelial 0-5 Normal 0-5 [facility] Comment on above: Performed By: #### 8 [id number] ####DEBORAH [facility] [employer] [address] [place] [address] UA Urobilinogen Negative Normal [facility] Comment on above: Performed By: #### 8 [id number] ####DEBORAH [facility] [employer] [address] [place] [address] UA WBC 0-5 Normal 0-5 [facility] Comment on above: Performed By: #### 8 [id number] ####DEBORAH [facility] [employer] [address] [place] [address] Urine, color Straw Normal Yellow [facility] Comment on above: Performed By: #### 8 [id number] ####DEBORAH [facility] [address] [place] [address] Urine, erythrocytes 0-3 Normal 0-3 [facility] Comment on above: Performed By: #### 8 [id number] ####DEBORAH [facility] [employer] [address] [place] [address] Urine, glucose Negative Normal Negative [facility] Comment on above: Performed By: #### 8 [id number] ####DEBORAH [facility] [employer] [address] [place] [address] Urine, ketones presence Negative Normal Negative [facility] Comment on above: Performed By: #### 8 [id number] ####DEBORAH [facility] [employer] [address] [place] [address] Urine, urobilinogen Negative Normal Negative [facility] Comment on above: Performed By: #### 8 [id number] ####DEBORAH [facility] [employer] [address] [place] [address] EMERGENCY DEPARTMENT SUMMARY on 11-30-[address] [facility] EMERGENCY DEPARTMENT SUMMARY NAME NUMBER SEX AGE ADMIT DISC TYPE MED.RECORD# ANNEL Snider [id number] F [id number] 11/18/17 11/18/17 Flavio.Aliya [id number] ROOM:[facility] DATE OF :1945 PHYSICIAN NO.:[id number] PHYSICIAN NAME:EDUAR Alcantara M.D. PHYSICIAN:NO DOCTOR ON ADMISSION SHEET CHIEF COMPLAINT: Lip swelling. HISTORY OF PRESENT ILLNESS: The patient is visiting with some friends and family from out of town. They were eating at a local restaurant and she started developing swelling to her lip and a feeling of swelling to her throat area. She has had several episodes like this in the past, and they have never been able to figure out why. She is not complaining of shortness of breath or chest pain. No rashes or itching. PAST MEDICAL HISTORY: Significant for hypertension. MEDICATIONS: She is on lisinopril, and has been on this for some time. Other medications per med rec list. ALLERGIES: She is allergic to erythromycin. PAST SURGICAL HISTORY: She has had previous knee replacement surgeries as well. SOCIAL HISTORY: As mentioned, she is visiting from out of town. She does not smoke or drink alcohol. REVIEW OF SYSTEMS: As mentioned. PHYSICAL EXAMINATION: This is a 72-year-old female who does not appear toxic or in acute distress. Skin is pink, warm, and dry. HEENT: Pupils equal, round, and reactive to light. Extraocular muscles intact. TMs are normal. Nose is normal. Mouth and throat: She does have mild diffuse lower lip swelling, slightly asymmetrical. She does not have any upper lip swelling. Intraoral examination reveals no evidence of any tongue swelling. There does appear to be some very minimal edema to the posterior pharynx area, but she does not have any dysphonia or trouble swallowing. No respiratory distress of any time. Neck is very supple. There is no adenopathy. Lungs are seems clear without crackles or wheezes. Cardiac exam is regular rhythm without any ectopy or murmurs. Abdomen is minimally obese, but soft and nontender. She moves all extremities appropriately. Good peripheral pulses. Good capillary refill. Vital signs: Temperature 97.2, pulse 68, respirations 18, blood pressure 198/105, and O2 saturation was 98%. EMERGENCY DEPARTMENT COURSE AND TREATMENT: The patient was given 50 mg of Benadryl orally, 60 mg of prednisone orally. She was observed over the next hour. Blood pressure improved markedly. She felt about the same, if anything, she had some slight improvement of her symptoms, but had no further swelling to her lips, tongue, or throat. Saturations remained good. DIAGNOSIS: Angioedema, most likely secondary to lisinopril. PLAN/DISPOSITION: I discussed management with them. I recommended that she discontinue the lisinopril; follow up with her family physician within the next 1 to 2 days. Return here or seek medical care if she has any further respiratory problems or mouth or throat swelling. D: Pavel Alcantara MD TD: 13:51 JOB #: [id number] Electronically signed by: EDUAR Alcantara M.D. 11/30/17 06:59 Transcribed by: am 11/19/2017 12:39 Normal [facility] Bacteria identified Anaer cx Nom (Unsp spec) Anaerobic microbial culture No anaerobic bacteria isolated. [facility] Work Phone: Bacteria identified Cx Nom ( Wound) Wound Culture Klebsiella pneumonia e sp pneum [facility] Work Phone: Gram stain for investigation of transfusion reaction Microscopic observation Gram stain Nom (Unsp spec) [facility] Work Phone: No Panel Information [facility] Vital Signs Date Time Vital Sign Value Performing Clinician Facility 04-01-2025 18:00-0400 Diastolic blood pressure 71 mm[Hg] Dr. Sylvia Lizama MD Work Phone: 1(144)165-445043 [place] [address] 04-01-2025 18:00-0400 Heart rate 70 /min Dr. Sylvia Lizama MD Work Phone: 6(263)386-329643 [place] [address] 04-01-2025 18:00-0400 Respiratory rate 15 /min Dr. Sylvia Lizama MD Work Phone: 9(222)126-048248 [place] [address] 04-01-2025 18:00-0400 SaO2% (BldA) [Mass fraction] 97 % Dr. Sylvia Lizama MD Work Phone: 1(595)875-097743 [place] [address] 04-01-2025 18:00-0400 Systolic blood pressure 167 mm[Hg] Dr. Sylvia Lizama MD Work Phone: 6(544)506-096043 [place] [address] 04-01-2025 17:35-0400 Body temperature 98 [degF] Dr. Sylvia Lizama MD Work Phone: 4(262)140-430948 [place] [address] 04-01-2025 15:08-0400 Body mass index (BMI) [Ratio] 43.9 kg/m2 Dr. Sylvia Lizama MD Work Phone: 5(301)695-357343 [place] [address] 04-01-2025 15:08-0400 Body weight [address] Sylvia Lizama MD Work Phone: 1(470)877-419848 [place] [address] 04-01-2025 12:34-0400 Body height 157.[address] Sylvia Lizama MD Work Phone: 0(123)565-904543 [place] [address] 03-22-2025 10:05-0400 Body mass index (BMI) [Ratio] 44.99 kg/m2 Asad Deras Work Phone: [facility] 03-22-2025 10:05-0400 Body temperature 98.2 [degF] Asad Deras Work Phone: [facility] 03-22-2025 10:05-0400 Body weight 111.58 kg Asadlindsay Deras Work Phone: [facility] 03-22-2025 10:05-0400 Diastolic blood pressure 78 mm[Hg] Asadlindsay Deras Work Phone: [facility] 03-22-2025 10:05-0400 Heart rate 62 /min Asadlindsay Deras Work Phone: [facility] 03-22-2025 10:05-0400 SaO2% (BldA) [Mass fraction] 97 % Asad Deras Work Phone: [facility] 03-22-2025 10:05-0400 Systolic blood pressure 144 mm[Hg] Asad Deras Work Phone: [facility] 03-14-2025 14:55-0400 Diastolic blood pressure 78 mm[Hg] Gini Haagen PUBLIC POLICY PROFESSOR.CRISIS COUNSELOR Work Phone: [facility] 03-14-2025 14:55-0400 Heart rate 68 /min Gini Haagen PUBLIC POLICY PROFESSOR.CRISIS COUNSELOR Work Phone: [facility] 03-14-2025 14:55-0400 Respiratory rate 16 /min Gini Haagen PUBLIC POLICY PROFESSOR.CRISIS COUNSELOR Work Phone: [facility] 03-14-2025 14:55-0400 SaO2% (BldA) [Mass fraction] 97 % Gini Haagen PUBLIC POLICY PROFESSOR.CRISIS COUNSELOR Work Phone: [facility] 03-14-2025 14:55-0400 Systolic blood pressure 170 mm[Hg] Gini Haagen PUBLIC POLICY PROFESSOR.CRISIS COUNSELOR Work Phone: [facility] 03-01-2025 11:24-0400 Body mass index (BMI) [Ratio] 44.63 kg/m2 Judith Pickard PUBLIC POLICY PROFESSOR.CRISIS COUNSELOR Work Phone: [facility] 03-01-2025 11:24-0400 Body weight 110.68 kg Judith Pickard PUBLIC POLICY PROFESSOR.CRISIS COUNSELOR Work Phone: [facility] 03-01-2025 11:24-0400 Diastolic blood pressure 66 mm[Hg] Judith Suppan PUBLIC POLICY PROFESSOR.CRISIS COUNSELOR Work Phone: [facility] 03-01-2025 11:24-0400 Heart rate 64 /min Judith Suppan PUBLIC POLICY PROFESSOR.CRISIS COUNSELOR Work Phone: [facility] 03-01-2025 11:24-0400 SaO2% (BldA) [Mass fraction] 96 % Judith Suppan PUBLIC POLICY PROFESSOR.CRISIS COUNSELOR Work Phone: [facility] 03-01-2025 11:24-0400 Systolic blood pressure 124 mm[Hg] Judith Suppan PUBLIC POLICY PROFESSOR.CRISIS COUNSELOR Work Phone: [facility] 12-28-2024 15:49-0400 Body height 157.5 cm Sylvia Lizama MD Work Phone: [facility] 12-28-2024 15:49-0400 Body mass index (BMI) [Ratio] 44.08 kg/m2 Sylvia Lizama MD Work Phone: [facility] 12-28-2024 15:49-0400 Body weight 109.32 kg Sylvia Lizama MD Work Phone: [facility] 12-28-2024 15:49-0400 Diastolic blood pressure 70 mm[Hg] Sylvia Lizama MD Work Phone: [facility] 12-28-2024 15:49-0400 Heart rate 75 /min Sylvia Lizama MD Work Phone: [facility] 12-28-2024 15:49-0400 SaO2% (BldA) [Mass fraction] 98 % Sylvia Lizama MD Work Phone: [facility] 12-28-2024 15:49-0400 Systolic blood pressure 134 mm[Hg] Sylvia Lizama MD Work Phone: [facility] 12-10-2024 09:12-0400 Body mass index (BMI) [Ratio] 43.24 kg/m2 César Quintero DO Work Phone: [facility] 12-10-2024 09:12-0400 Body temperature 97.81 [degF] César Quintero DO Work Phone: [facility] 12-10-2024 09:12-0400 Body weight 109.32 kg César Guzmani DO Work Phone: [facility] 12-10-2024 09:12-0400 Diastolic blood pressure 62 mm[Hg] César Guzmani DO Work Phone: [facility] 12-10-2024 09:12-0400 Heart rate 70 /min César Guzmani DO Work Phone: [facility] 12-10-2024 09:12-0400 SaO2% (BldA) [Mass fraction] 96 % César Quintero DO Work Phone: [facility] 12-10-2024 09:12-0400 Systolic blood pressure 100 mm[Hg] César Guzmani DO Work Phone: [facility] 12-01-2024 14:00-0400 SaO2% (BldA) [Mass fraction] 96 % Dr. Sylvia Lizama MD Work Phone: [facility] 12-01-2024 08:15-0400 Heart rate 71 /min Dr. Sylvia Lizama MD Work Phone: [facility] 12-01-2024 03:00-0400 Body temperature 99.4 [degF] Dr. Sylvia Lizama MD Work Phone: [facility] 12-01-2024 03:00-0400 Diastolic blood pressure 73 mm[Hg] Dr. Sylvia Lizama MD Work Phone: [facility] 12-01-2024 03:00-0400 Respiratory rate 18 /min Dr. Sylvia Lizama MD Work Phone: [facility] 12-01-2024 03:00-0400 Systolic blood pressure 143 mm[Hg] Dr. Sylvia Lizama MD Work Phone: [facility] 11-30-2024 15:27-0400 Body height 160.[address] Sylvia Lizama MD Work Phone: 6(780)164-987148 [place] [address] 11-30-2024 15:27-0400 Body weight 106.[address] Sylvia Lizama MD Work Phone: 0(139)908-187748 [place] [address] 11-26-2024 17:31-0500 Body mass index (BMI) [Ratio] 41.6 kg/m2 Dr. Sylvia Lizama MD Work Phone: 9(574)100-378248 [place] [address] 11-26-2024 17:00-0500 Diastolic blood pressure 75 mm[Hg] Dr. Sylvia Lizama MD Work Phone: 1(047)836-813148 [place] [address] 11-26-2024 17:00-0500 Heart rate 72 /min Dr. Sylvia Lizama MD Work Phone: 8(852)069-505448 [place] [address] 11-26-2024 17:00-0500 Respiratory rate 18 /min Dr. Sylvia Lizama MD Work Phone: 1(412)649-719548 [place] [address] 11-26-2024 17:00-0500 SaO2% (BldA) [Mass fraction] 95 % Dr. Sylvia Lizama MD Work Phone: 7(567)941-447948 [place] [address] 11-26-2024 17:00-0500 Systolic blood pressure 165 mm[Hg] Dr. Sylvia Lizama MD Work Phone: 5(351)824-500648 [place] [address] 11-26-2024 15:20-0500 Body temperature 99 [degF] Dr. Sylvia Lizama MD Work Phone: 2(260)634-008048 [place] [address] 11-26-2024 11:22-0500 Body height 157.[address] Sylvia Lizama MD Work Phone: 0(608)654-968848 [place] [address] 11-26-2024 11:22-0500 Body mass index (BMI) [Ratio] 44.4 kg/m2 Dr. Sylvia Lizama MD Work Phone: 1(346)763-546348 [place] [address] 11-26-2024 11:22-0500 Body weight 110.[address] Sylvia Lizama MD Work Phone: 7(432)453-814648 [place] [address] 11-12-2024 15:48-0500 Diastolic blood pressure 86 mm[Hg] Judith Pickard APRN.CNP Work Phone: [facility] 11-12-2024 15:48-0500 Systolic blood pressure 146 mm[Hg] Judith Suppan PUBLIC POLICY PROFESSOR.CRISIS COUNSELOR Work Phone: [facility] 11-12-2024 15:23-0500 Body mass index (BMI) [Ratio] 43.06 kg/m2 Judith Suppan PUBLIC POLICY PROFESSOR.CRISIS COUNSELOR Work Phone: [facility] 11-12-2024 15:23-0500 Body temperature 100.9 [degF] Judith Suppan PUBLIC POLICY PROFESSOR.CRISIS COUNSELOR Work Phone: [facility] 11-12-2024 15:23-0500 Body weight 108.86 kg Judith Suppan PUBLIC POLICY PROFESSOR.CRISIS COUNSELOR Work Phone: [facility] 11-12-2024 15:23-0500 Heart rate 71 /min Judith Suppan PUBLIC POLICY PROFESSOR.CRISIS COUNSELOR Work Phone: [facility] 11-12-2024 15:23-0500 SaO2% (BldA) [Mass fraction] 99 % Judith Suppan PUBLIC POLICY PROFESSOR.CRISIS COUNSELOR Work Phone: [facility] 11-06-2024 15:46-0500 Body temperature 98.4 [degF] Dr. Sylvia Lizama MD Work Phone: [facility] 11-06-2024 15:46-0500 Diastolic blood pressure 101 mm[Hg] Dr. Sylvia Lizama MD Work Phone: [facility] 11-06-2024 15:46-0500 Heart rate 74 /min Dr. Sylvia Lizama MD Work Phone: [facility] 11-06-2024 15:46-0500 Respiratory rate 23 /min Dr. Sylvia Lizama MD Work Phone: [facility] 11-06-2024 15:46-0500 SaO2% (BldA) [Mass fraction] 95 % Dr. Sylvia Lizama MD Work Phone: [facility] 11-06-2024 15:46-0500 Systolic blood pressure 167 mm[Hg] Dr. Sylvia Lizama MD Work Phone: [facility] 11-01-2024 12:06-0500 Body mass index (BMI) [Ratio] 43.51 kg/m2 Elida Lozada PUBLIC POLICY PROFESSOR.CRISIS COUNSELOR Work Phone: [facility] 11-01-2024 12:06-0500 Body temperature 99.5 [degF] Elida Lozada PUBLIC POLICY PROFESSOR.CRISIS COUNSELOR Work Phone: [facility] 11-01-2024 12:06-0500 Body weight 110 kg Elida Lozada PUBLIC POLICY PROFESSOR.CRISIS COUNSELOR Work Phone: [facility] 11-01-2024 12:06-0500 Diastolic blood pressure 82 mm[Hg] Elida Lozada PUBLIC POLICY PROFESSOR.CRISIS COUNSELOR Work Phone: [facility] 11-01-2024 12:06-0500 Heart rate 68 /min Elida Lozada PUBLIC POLICY PROFESSOR.CRISIS COUNSELOR Work Phone: [facility] 11-01-2024 12:06-0500 SaO2% (BldA) [Mass fraction] 96 % Elida Lozada PUBLIC POLICY PROFESSOR.CRISIS COUNSELOR Work Phone: [facility] 11-01-2024 12:06-0500 Systolic blood pressure 130 mm[Hg] Elida Lozada PUBLIC POLICY PROFESSOR.CRISIS COUNSELOR Work Phone: [facility] 10-08-2024 08:40-0500 Body mass index (BMI) [Ratio] 43.78 kg/m2 Treatment Wstr Work Phone: [facility] 10-08-2024 08:40-0500 Body temperature 97.39 [degF] Treatment Wstr Work Phone: [facility] 10-08-2024 08:40-0500 Body weight 110.68 kg Treatment Wstr Work Phone: [facility] 10-08-2024 08:40-0500 Diastolic blood pressure 55 mm[Hg] Treatment Wstr Work Phone: [facility] 10-08-2024 08:40-0500 Heart rate 78 /min Treatment Wstr Work Phone: [facility] 10-08-2024 08:40-0500 Respiratory rate 16 /min Treatment Wstr Work Phone: [facility] 10-08-2024 08:40-0500 SaO2% (BldA) [Mass fraction] 96 % Treatment Wstr Work Phone: [facility] 10-08-2024 08:40-0500 Systolic blood pressure 127 mm[Hg] Treatment Wstr Work Phone: [facility] 10-01-2024 13:14-0500 Diastolic blood pressure 60 mm[Hg] Treatment Wstr Work Phone: [facility] 10-01-2024 13:14-0500 Heart rate 60 /min Treatment Wstr Work Phone: [facility] 10-01-2024 13:14-0500 SaO2% (BldA) [Mass fraction] 97 % Treatment Wstr Work Phone: [facility] 10-01-2024 13:14-0500 Systolic blood pressure 150 mm[Hg] Treatment Wstr Work Phone: [facility] 10-01-2024 10:03-0500 Body mass index (BMI) [Ratio] 43.78 kg/m2 Treatment Wstr Work Phone: [facility] 10-01-2024 10:03-0500 Body temperature 97.11 [degF] Treatment Wstr Work Phone: [facility] 10-01-2024 10:03-0500 Body weight 110.68 kg Treatment Wstr Work Phone: [facility] 09-24-2024 13:25-0500 Diastolic blood pressure 76 mm[Hg] Treatment Wstr Work Phone: [facility] 09-24-2024 13:25-0500 Heart rate 56 /min Treatment Wstr Work Phone: [facility] 09-24-2024 13:25-0500 Respiratory rate 16 /min Treatment Wstr Work Phone: [facility] 09-24-2024 13:25-0500 SaO2% (BldA) [Mass fraction] 96 % Treatment Wstr Work Phone: [facility] 09-24-2024 13:25-0500 Systolic blood pressure 170 mm[Hg] Treatment Wstr Work Phone: [facility] 09-24-2024 13:00-0500 Body temperature 97.5 [degF] Treatment Wstr Work Phone: [facility] 09-24-2024 08:41-0500 Body mass index (BMI) [Ratio] 43.69 kg/m2 Treatment Wstr Work Phone: [facility] 09-24-2024 08:41-0500 Body weight 110.45 kg Treatment Wstr Work Phone: [facility] 09-17-2024 14:07-0500 Diastolic blood pressure 84 mm[Hg] Treatment Wstr Work Phone: [facility] 09-17-2024 14:07-0500 Heart rate 69 /min Treatment Wstr Work Phone: [facility] 09-17-2024 14:07-0500 Systolic blood pressure 148 mm[Hg] Treatment Wstr Work Phone: [facility] 09-17-2024 13:30-0500 Body temperature 97.81 [degF] Treatment Wstr Work Phone: [facility] 09-17-2024 13:30-0500 Respiratory rate 16 /min Treatment Wstr Work Phone: [facility] 09-17-2024 13:30-0500 SaO2% (BldA) [Mass fraction] 94 % Treatment Wstr Work Phone: [facility] 09-17-2024 08:04-0500 Body height 159 cm Treatment Wstr Work Phone: [facility] 09-17-2024 08:04-0500 Body mass index (BMI) [Ratio] 44.32 kg/m2 Treatment Wstr Work Phone: [facility] 09-17-2024 08:04-0500 Body weight 112.04 kg Treatment Wstr Work Phone: [facility] 09-03-2024 10:01-0500 Body mass index (BMI) [Ratio] 42.43 kg/m2 César Guzmani DO Work Phone: [facility] 09-03-2024 10:01-0500 Body temperature 97.59 [degF] César Guzmani DO Work Phone: [facility] 09-03-2024 10:01-0500 Body weight 108.64 kg César Guzmani DO Work Phone: [facility] 09-03-2024 10:01-0500 Diastolic blood pressure 56 mm[Hg] César Guzmani DO Work Phone: [facility] 09-03-2024 10:01-0500 Heart rate 68 /min César Guzmani DO Work Phone: [facility] 09-03-2024 10:01-0500 SaO2% (BldA) [Mass fraction] 97 % César Guzmani DO Work Phone: [facility] 09-03-2024 10:01-0500 Systolic blood pressure 91 mm[Hg] César Israeli DO Work Phone: [facility] 07-27-2024 13:44-0500 Body mass index (BMI) [Ratio] 42.57 kg/m2 Helen Praisler-Uli PUBLIC POLICY PROFESSOR.CRISIS COUNSELOR Work Phone: [facility] 07-27-2024 13:44-0500 Body temperature 98.91 [degF] Helen Praisler-Wood PUBLIC POLICY PROFESSOR.CRISIS COUNSELOR Work Phone: [facility] 07-27-2024 13:44-0500 Body weight 109 kg Helen Praisler-Wood PUBLIC POLICY PROFESSOR.CRISIS COUNSELOR Work Phone: [facility] 07-27-2024 13:44-0500 Diastolic blood pressure 93 mm[Hg] Helen Praisler-Wood PUBLIC POLICY PROFESSOR.CRISIS COUNSELOR Work Phone: [facility] 07-27-2024 13:44-0500 Heart rate 87 /min Helen Praisler-Wood PUBLIC POLICY PROFESSOR.CRISIS COUNSELOR Work Phone: [facility] 07-27-2024 13:44-0500 Respiratory rate 20 /min Helen Praisler-Wood PUBLIC POLICY PROFESSOR.CRISIS COUNSELOR Work Phone: [facility] 07-27-2024 13:44-0500 SaO2% (BldA) [Mass fraction] 98 % Helen Praisler-Wood PUBLIC POLICY PROFESSOR.CRISIS COUNSELOR Work Phone: [facility] 07-27-2024 13:44-0500 Systolic blood pressure 148 mm[Hg] Helen Praisler-Wood PUBLIC POLICY PROFESSOR.CRISIS COUNSELOR Work Phone: [facility] 07-27-2024 12:26-0500 Body mass index (BMI) [Ratio] 42.57 kg/m2 Missy Queener PA-C Work Phone: [facility] 07-27-2024 12:26-0500 Body weight 109 kg Missy Queener PA-C Work Phone: [facility] 07-27-2024 12:26-0500 Diastolic blood pressure 86 mm[Hg] Missy Queener PA-C Work Phone: [facility] 07-27-2024 12:26-0500 Heart rate 78 /min Missy Queener PA-C Work Phone: [facility] 07-27-2024 12:26-0500 Respiratory rate 14 /min Missy Queener PA-C Work Phone: [facility] 07-27-2024 12:26-0500 SaO2% (BldA) [Mass fraction] 94 % Missy Queener PA-C Work Phone: [facility] 07-27-2024 12:26-0500 Systolic blood pressure 146 mm[Hg] Missy Queener PA-C Work Phone: [facility] 07-06-2024 15:07-0400 Diastolic blood pressure 66 mm[Hg] Judith Pickard PUBLIC POLICY PROFESSOR.CRISIS COUNSELOR Work Phone: [facility] 07-06-2024 15:07-0400 Systolic blood pressure 114 mm[Hg] Judith Suppan PUBLIC POLICY PROFESSOR.CRISIS COUNSELOR Work Phone: [facility] 07-06-2024 14:46-0400 Body mass index (BMI) [Ratio] 41.86 kg/m2 Judith Suppan PUBLIC POLICY PROFESSOR.CRISIS COUNSELOR Work Phone: [facility] 07-06-2024 14:46-0400 Body weight 107.2 kg Judith Suppan PUBLIC POLICY PROFESSOR.CRISIS COUNSELOR Work Phone: [facility] 07-06-2024 14:46-0400 Heart rate 68 /min Judith Suppan PUBLIC POLICY PROFESSOR.CRISIS COUNSELOR Work Phone: [facility] 07-06-2024 14:46-0400 SaO2% (BldA) [Mass fraction] 100 % Judith Suppan PUBLIC POLICY PROFESSOR.CRISIS COUNSELOR Work Phone: [facility] 07-02-2024 11:51-0400 Diastolic blood pressure 71 mm[Hg] Judith Suppan PUBLIC POLICY PROFESSOR.CRISIS COUNSELOR Work Phone: [facility] 07-02-2024 11:51-0400 Systolic blood pressure 124 mm[Hg] Judith Suppan PUBLIC POLICY PROFESSOR.CRISIS COUNSELOR Work Phone: [facility] 07-02-2024 11:48-0400 Body mass index (BMI) [Ratio] 41.63 kg/m2 Judith Suppan PUBLIC POLICY PROFESSOR.CRISIS COUNSELOR Work Phone: [facility] 07-02-2024 11:48-0400 Body weight 106.59 kg Judith Suppan PUBLIC POLICY PROFESSOR.CRISIS COUNSELOR Work Phone: [facility] 07-02-2024 11:48-0400 Heart rate 71 /min Judith Suppan PUBLIC POLICY PROFESSOR.CRISIS COUNSELOR Work Phone: [facility] 07-02-2024 11:48-0400 SaO2% (BldA) [Mass fraction] 99 % Judith Suppan PUBLIC POLICY PROFESSOR.CRISIS COUNSELOR Work Phone: [facility] 06-17-2024 11:27-0400 Body mass index (BMI) [Ratio] 41.67 kg/m2 Judith Suppan PUBLIC POLICY PROFESSOR.CRISIS COUNSELOR Work Phone: [facility] 06-17-2024 11:27-0400 Body weight 106.7 kg Judith Suppan PUBLIC POLICY PROFESSOR.CRISIS COUNSELOR Work Phone: [facility] 06-17-2024 11:27-0400 Diastolic blood pressure 68 mm[Hg] Judith Suppan PUBLIC POLICY PROFESSOR.CRISIS COUNSELOR Work Phone: [facility] 06-17-2024 11:27-0400 Heart rate 68 /min Judith Suppan PUBLIC POLICY PROFESSOR.CRISIS COUNSELOR Work Phone: [facility] 06-17-2024 11:27-0400 Respiratory rate 16 /min Judith Suppan PUBLIC POLICY PROFESSOR.CRISIS COUNSELOR Work Phone: [facility] 06-17-2024 11:27-0400 SaO2% (BldA) [Mass fraction] 98 % Judith Suppan PUBLIC POLICY PROFESSOR.CRISIS COUNSELOR Work Phone: [facility] 06-17-2024 11:27-0400 Systolic blood pressure 120 mm[Hg] Judith Suppan PUBLIC POLICY PROFESSOR.CRISIS COUNSELOR Work Phone: [facility] 05-18-2024 14:22-0400 Body mass index (BMI) [Ratio] 41.63 kg/m2 Judith Suppan PUBLIC POLICY PROFESSOR.CRISIS COUNSELOR Work Phone: [facility] 05-18-2024 14:22-0400 Body weight 106.59 kg Judith Suppan PUBLIC POLICY PROFESSOR.CRISIS COUNSELOR Work Phone: [facility] 05-18-2024 14:22-0400 Diastolic blood pressure 78 mm[Hg] Judith Suppan PUBLIC POLICY PROFESSOR.CRISIS COUNSELOR Work Phone: [facility] 05-18-2024 14:22-0400 Heart rate 60 /min Judith Suppan PUBLIC POLICY PROFESSOR.CRISIS COUNSELOR Work Phone: [facility] 05-18-2024 14:22-0400 SaO2% (BldA) [Mass fraction] 96 % Judith Suppan PUBLIC POLICY PROFESSOR.CRISIS COUNSELOR Work Phone: [facility] 05-18-2024 14:22-0400 Systolic blood pressure 129 mm[Hg] Judith Suppan PUBLIC POLICY PROFESSOR.CRISIS COUNSELOR Work Phone: [facility] 05-11-2024 13:44-0400 Body mass index (BMI) [Ratio] 41.12 kg/m2 Enid Brigotti PUBLIC POLICY PROFESSOR.CRISIS COUNSELOR Work Phone: [facility] 05-11-2024 13:44-0400 Body temperature 97 [degF] Enid Brigotti PUBLIC POLICY PROFESSOR.CRISIS COUNSELOR Work Phone: [facility] 05-11-2024 13:44-0400 Body weight 105.3 kg Enid Brigotti PUBLIC POLICY PROFESSOR.CRISIS COUNSELOR Work Phone: [facility] 05-11-2024 13:44-0400 Diastolic blood pressure 78 mm[Hg] Enid Brigotti PUBLIC POLICY PROFESSOR.CRISIS COUNSELOR Work Phone: [facility] 05-11-2024 13:44-0400 Heart rate 63 /min Enid Brigotti PUBLIC POLICY PROFESSOR.CRISIS COUNSELOR Work Phone: [facility] 05-11-2024 13:44-0400 Respiratory rate 18 /min Enid Brigotti PUBLIC POLICY PROFESSOR.CRISIS COUNSELOR Work Phone: [facility] 05-11-2024 13:44-0400 SaO2% (BldA) [Mass fraction] 99 % Enid Brigotti PUBLIC POLICY PROFESSOR.CRISIS COUNSELOR Work Phone: [facility] 05-11-2024 13:44-0400 Systolic blood pressure 122 mm[Hg] Enid Brigotti PUBLIC POLICY PROFESSOR.CRISIS COUNSELOR Work Phone: [facility] 05-03-2024 10:52-0400 Diastolic blood pressure 38 mm[Hg] Judith Suppan PUBLIC POLICY PROFESSOR.CRISIS COUNSELOR Work Phone: [facility] 05-03-2024 10:52-0400 Systolic blood pressure 70 mm[Hg] Judith Suppan PUBLIC POLICY PROFESSOR.CRISIS COUNSELOR Work Phone: [facility] 05-03-2024 10:26-0400 Body mass index (BMI) [Ratio] 40.39 kg/m2 Judith Suppan PUBLIC POLICY PROFESSOR.CRISIS COUNSELOR Work Phone: [facility] 05-03-2024 10:26-0400 Body weight 103.42 kg Judith Suppan PUBLIC POLICY PROFESSOR.CRISIS COUNSELOR Work Phone: [facility] 05-03-2024 10:26-0400 Heart rate 67 /min Judith Suppan PUBLIC POLICY PROFESSOR.CRISIS COUNSELOR Work Phone: [facility] 05-03-2024 10:26-0400 SaO2% (BldA) [Mass fraction] 96 % Judith Suppan PUBLIC POLICY PROFESSOR.CRISIS COUNSELOR Work Phone: [facility] 04-29-2024 12:50-0400 Diastolic blood pressure 63 mm[Hg] Zeny Crowder MD Work Phone: [facility] 04-29-2024 12:50-0400 Respiratory rate 16 /min Zeny Crowder MD Work Phone: [facility] 04-29-2024 12:50-0400 Systolic blood pressure 132 mm[Hg] Zeny Crowder MD Work Phone: [facility] 04-29-2024 12:05-0400 Heart rate 64 /min Zeny Crowder MD Work Phone: [facility] 04-29-2024 12:05-0400 SaO2% (BldA) [Mass fraction] 96 % Zeny Crowder MD Work Phone: [facility] 04-29-2024 11:18-0400 Body mass index (BMI) [Ratio] 41.43 kg/m2 Zeny Crowder MD Work Phone: [facility] 04-29-2024 11:18-0400 Body temperature 96.6 [degF] Zeny Crowder MD Work Phone: [facility] 04-29-2024 11:18-0400 Body weight 106.1 kg Zeny Crowder MD Work Phone: [facility] 04-08-2024 12:49-0400 Body mass index (BMI) [Ratio] 41.45 kg/m2 Judith Suppan PUBLIC POLICY PROFESSOR.CRISIS COUNSELOR Work Phone: [facility] 04-08-2024 12:49-0400 Body temperature 97.3 [degF] Judith Suppan PUBLIC POLICY PROFESSOR.CRISIS COUNSELOR Work Phone: [facility] 04-08-2024 12:49-0400 Body weight 106.14 kg Judith Suppan PUBLIC POLICY PROFESSOR.CRISIS COUNSELOR Work Phone: [facility] 04-08-2024 12:49-0400 Diastolic blood pressure 80 mm[Hg] Judith Suppan PUBLIC POLICY PROFESSOR.CRISIS COUNSELOR Work Phone: [facility] 04-08-2024 12:49-0400 Heart rate 62 /min Judith Suppan PUBLIC POLICY PROFESSOR.CRISIS COUNSELOR Work Phone: [facility] 04-08-2024 12:49-0400 SaO2% (BldA) [Mass fraction] 97 % Judith Suppan PUBLIC POLICY PROFESSOR.CRISIS COUNSELOR Work Phone: [facility] 04-08-2024 12:49-0400 Systolic blood pressure 130 mm[Hg] Judith Suppan PUBLIC POLICY PROFESSOR.CRISIS COUNSELOR Work Phone: [facility] 04-02-2024 14:13-0400 Body height 160 cm Sylvia Lizama MD Work Phone: [facility] 04-02-2024 14:13-0400 Body mass index (BMI) [Ratio] 41.45 kg/m2 Sylvia Lizama MD Work Phone: [facility] 04-02-2024 14:13-0400 Body weight 106.14 kg Sylvia Lizama MD Work Phone: [facility] 04-02-2024 14:13-0400 Diastolic blood pressure 66 mm[Hg] Sylvia Lizama MD Work Phone: [facility] 04-02-2024 14:13-0400 Heart rate 76 /min Sylvia Lizama MD Work Phone: [facility] 04-02-2024 14:13-0400 SaO2% (BldA) [Mass fraction] 96 % Sylvia Lizama MD Work Phone: [facility] 04-02-2024 14:130400 Systolic blood pressure 152 mm[Hg] Sylvia Lizama MD Work Phone: [facility] 03-29-2024 14:090400 Body height 160 cm Zeny Crowder MD Work Phone: [facility] 03-29-2024 14:090400 Body mass index (BMI) [Ratio] 41.52 kg/m2 Zeny Crowder MD Work Phone: [facility] 03-29-2024 14:090400 Body temperature 97.9 [degF] Zeny Crowder MD Work Phone: [facility] 03-29-2024 14:09-0400 Body weight 106.32 kg Zeny Crowder MD Work Phone: [facility] 03-29-2024 14:09-0400 Diastolic blood pressure 84 mm[Hg] Zeny Crowder MD Work Phone: [facility] 03-29-2024 14:09-0400 Heart rate 78 /min Zeny Crowder MD Work Phone: [facility] 03-29-2024 14:09-0400 SaO2% (BldA) [Mass fraction] 94 % Zeny Crowder MD Work Phone: [facility] 03-29-2024 14:09-0400 Systolic blood pressure 136 mm[Hg] Zeny Crowder MD Work Phone: [facility] 03-15-2024 10:07-0400 Diastolic blood pressure 78 mm[Hg] Gini Ayala PUBLIC POLICY PROFESSOR.CRISIS COUNSELOR Work Phone: [facility] 03-15-2024 10:07-0400 Heart rate 66 /min Gini Ayala APRN.CRISIS COUNSELOR Work Phone: [facility] 03-15-2024 10:07-0400 Respiratory rate 16 /min Gini Ayala PUBLIC POLICY PROFESSOR.CRISIS COUNSELOR Work Phone: [facility] 03-15-2024 10:07-0400 SaO2% (BldA) [Mass fraction] 96 % Gini Knightagen PUBLIC POLICY PROFESSOR.CRISIS COUNSELOR Work Phone: [facility] 03-15-2024 10:07-0400 Systolic blood pressure 108 mm[Hg] Gini Knightagen PUBLIC POLICY PROFESSOR.CRISIS COUNSELOR Work Phone: [facility] 03-04-2024 11:26-0400 Body mass index (BMI) [Ratio] 41.27 kg/m2 Judith Suppan PUBLIC POLICY PROFESSOR.DEVELOPMENTAL SERVICES WORKER Work Phone: [facility] 03-04-2024 11:26-0400 Body temperature 98.01 [degF] Judith Suppan PUBLIC POLICY PROFESSOR.DEVELOPMENTAL SERVICES WORKER Work Phone: [facility] 03-04-2024 11:26-0400 Body weight 105.69 kg Judith Suppan PUBLIC POLICY PROFESSOR.DEVELOPMENTAL SERVICES WORKER Work Phone: [facility] 03-04-2024 11:26-0400 Diastolic blood pressure 66 mm[Hg] Judith Suppan PUBLIC POLICY PROFESSOR.DEVELOPMENTAL SERVICES WORKER Work Phone: [facility] 03-04-2024 11:26-0400 Heart rate 66 /min Judith Suppan PUBLIC POLICY PROFESSOR.DEVELOPMENTAL SERVICES WORKER Work Phone: [facility] 03-04-2024 11:26-0400 Respiratory rate 18 /min Judith Suppan PUBLIC POLICY PROFESSOR.DEVELOPMENTAL SERVICES WORKER Work Phone: [facility] 03-04-2024 11:26-0400 SaO2% (BldA) [Mass fraction] 97 % Judith Suppan PUBLIC POLICY PROFESSOR.DEVELOPMENTAL SERVICES WORKER Work Phone: [facility] 03-04-2024 11:26-0400 Systolic blood pressure 142 mm[Hg] Judith Suppan PUBLIC POLICY PROFESSOR.DEVELOPMENTAL SERVICES WORKER Work Phone: [facility] 02-19-2024 13:17-0400 Body mass index (BMI) [Ratio] 41.45 kg/m2 Shaila [place] PUBLIC POLICY PROFESSOR.CRISIS COUNSELOR Work Phone: [facility] 02-19-2024 13:17-0400 Body weight 106.14 kg Shaila Sergey PUBLIC POLICY PROFESSOR.CRISIS COUNSELOR Work Phone: [facility] 02-19-2024 13:17-0400 Diastolic blood pressure 82 mm[Hg] Shaila [place] PUBLIC POLICY PROFESSOR.CRISIS COUNSELOR Work Phone: [facility] 02-19-2024 13:17-0400 Systolic blood pressure 140 mm[Hg] Shaila Sergey PUBLIC POLICY PROFESSOR.CRISIS COUNSELOR Work Phone: [facility] 02-05-2024 11:05-0400 Body mass index (BMI) [Ratio] 42.16 kg/m2 Judith Suppan PUBLIC POLICY PROFESSOR.DEVELOPMENTAL SERVICES WORKER Work Phone: [facility] 02-05-2024 11:05-0400 Body weight 107.96 kg Judith Suppan PUBLIC POLICY PROFESSOR.DEVELOPMENTAL SERVICES WORKER Work Phone: [facility] 02-05-2024 11:05-0400 Diastolic blood pressure 62 mm[Hg] Judith Suppan PUBLIC POLICY PROFESSOR.DEVELOPMENTAL SERVICES WORKER Work Phone: [facility] 02-05-2024 11:05-0400 Heart rate 59 /min Judith Suppan PUBLIC POLICY PROFESSOR.DEVELOPMENTAL SERVICES WORKER Work Phone: [facility] 02-05-2024 11:05-0400 Respiratory rate 14 /min Judith Suppan PUBLIC POLICY PROFESSOR.DEVELOPMENTAL SERVICES WORKER Work Phone: [facility] 02-05-2024 11:05-0400 SaO2% (BldA) [Mass fraction] 97 % Judith Suppan PUBLIC POLICY PROFESSOR.DEVELOPMENTAL SERVICES WORKER Work Phone: [facility] 02-05-2024 11:05-0400 Systolic blood pressure 134 mm[Hg] Judith Suppan PUBLIC POLICY PROFESSOR.DEVELOPMENTAL SERVICES WORKER Work Phone: [facility] 01-07-2024 13:38-0400 Body height 160 cm Sylvia Lizama MD Work Phone: [facility] 01-07-2024 13:38-0400 Body weight 107.5 kg Sylvia Lizama MD Work Phone: [facility] 01-07-2024 13:38-0400 Diastolic blood pressure 58 mm[Hg] Sylvia Lizama MD Work Phone: [facility] 01-07-2024 13:38-0400 Heart rate 69 /min Sylvia Lizama MD Work Phone: [facility] 01-07-2024 13:38-0400 SaO2% (BldA) [Mass fraction] 98 % Sylvia Lizama MD Work Phone: [facility] 01-07-2024 13:38-0400 Systolic blood pressure 124 mm[Hg] Sylvia Lizama MD Work Phone: [facility] 2023 14:31-0500 Body temperature 97.81 [degF] Krislyn Aberegg PA Work Phone: [facility] 2023 14:31-0500 Body weight 106.78 kg Krislyn Aberegg PA Work Phone: [facility] 2023 14:31-0500 Diastolic blood pressure 74 mm[Hg] Krislyn Aberegg PA Work Phone: [facility] 2023 14:31-0500 Heart rate 79 /min Krislyn Aberegg PA Work Phone: [facility] 2023 14:31-0500 Respiratory rate 18 /min Krislyn Aberegg PA Work Phone: [facility] 2023 14:31-0500 SaO2% (BldA) [Mass fraction] 96 % Krislyn Aberegg PA Work Phone: [facility] 2023 14:31-0500 Systolic blood pressure 142 mm[Hg] Krislyn Aberegg PA Work Phone: [facility] 10-27-2023 09:37-0500 Body temperature 97.59 [degF] Sathya Rajan MD Work Phone: [facility] 10-27-2023 09:37-0500 Body weight 106.69 kg Sathya Rajan MD Work Phone: [facility] 10-27-2023 09:37-0500 Diastolic blood pressure 80 mm[Hg] Sathya Rajan MD Work Phone: [facility] 10-27-2023 09:37-0500 Heart rate 74 /min Sathya Rajan MD Work Phone: [facility] 10-27-2023 09:37-0500 Respiratory rate 22 /min Sathya Rajan MD Work Phone: [facility] 10-27-2023 09:37-0500 SaO2% (BldA) [Mass fraction] 97 % Sathya Rajan MD Work Phone: [facility] 10-27-2023 09:37-0500 Systolic blood pressure 157 mm[Hg] Sathya Rajan MD Work Phone: [facility] 07-08-2023 15:34-0400 Body weight 106.14 kg Sylvia Lizama MD Work Phone: [facility] 07-08-2023 15:34-0400 Diastolic blood pressure 72 mm[Hg] Sylvia Lizama MD Work Phone: [facility] 07-08-2023 15:34-0400 Heart rate 73 /min Sylvia Lizama MD Work Phone: [facility] 07-08-2023 15:34-0400 Respiratory rate 16 /min Sylvia Lizama MD Work Phone: [facility] 07-08-2023 15:34-0400 SaO2% (BldA) [Mass fraction] 96 % Sylvia Lizama MD Work Phone: [facility] 07-08-2023 15:34-0400 Systolic blood pressure 136 mm[Hg] Sylvia Lizama MD Work Phone: [facility] 06-13-2023 10:01-0400 Body temperature 98.01 [degF] Prince Fang MD Work Phone: [facility] 06-13-2023 10:01-0400 Body weight 106.37 kg Prince Fang MD Work Phone: [facility] 06-13-2023 10:01-0400 Diastolic blood pressure 66 mm[Hg] Prince Fang MD Work Phone: [facility] 06-13-2023 10:01-0400 Heart rate 72 /min Prince Fang MD Work Phone: [facility] 06-13-2023 10:01-0400 SaO2% (BldA) [Mass fraction] 97 % Prince Fang MD Work Phone: [facility] 06-13-2023 10:01-0400 Systolic blood pressure 110 mm[Hg] Prince Fang MD Work Phone: [facility] 06-13-2023 09:47-0400 Body weight 106.37 kg Lab/Port Wstr Work Phone: [facility] 04-17-2023 15:13-0400 Body weight 104.33 kg NA Lemus PA-C Work Phone: [facility] 04-17-2023 15:13-0400 Diastolic blood pressure 84 mm[Hg] NA Lemus PA-C Work Phone: [facility] 04-17-2023 15:13-0400 Heart rate 69 /min NA Lemus PA-C Work Phone: [facility] 04-17-2023 15:13-0400 Respiratory rate 20 /min NA Lemus PA-C Work Phone: [facility] 04-17-2023 15:13-0400 SaO2% (BldA) [Mass fraction] 97 % NA Lemus PA-C Work Phone: [facility] 04-17-2023 15:13-0400 Systolic blood pressure 132 mm[Hg] NA Lemus PA-C Work Phone: [facility] 04-03-2023 09:44-0400 Body weight 102.97 kg Sylvai Lizama MD Work Phone: [facility] 04-03-2023 09:44-0400 Diastolic blood pressure 64 mm[Hg] Sylvia Lizama MD Work Phone: [facility] 04-03-2023 09:44-0400 Heart rate 70 /min Sylvia Lizama MD Work Phone: [facility] 04-03-2023 09:44-0400 SaO2% (BldA) [Mass fraction] 98 % Sylvia Lizama MD Work Phone: [facility] 04-03-2023 09:44-0400 Systolic blood pressure 126 mm[Hg] Sylvia Lizama MD Work Phone: [facility] 03-24-2023 11:09-0400 Body weight 103.24 kg Elissabeena Acevedohof PUBLIC POLICY PROFESSOR.CRISIS COUNSELOR Work Phone: [facility] 03-24-2023 11:09-0400 Diastolic blood pressure 64 mm[Hg] Elissa Tannhof PUBLIC POLICY PROFESSOR.CRISIS COUNSELOR Work Phone: [facility] 03-24-2023 11:09-0400 Heart rate 78 /min Elissa Tannhof PUBLIC POLICY PROFESSOR.CRISIS COUNSELOR Work Phone: [facility] 03-24-2023 11:09-0400 Respiratory rate 18 /min Elissa Tannhof PUBLIC POLICY PROFESSOR.CRISIS COUNSELOR Work Phone: [facility] 03-24-2023 11:09-0400 SaO2% (BldA) [Mass fraction] 97 % Elissa Tannhof PUBLIC POLICY PROFESSOR.CRISIS COUNSELOR Work Phone: [facility] 03-24-2023 11:09-0400 Systolic blood pressure 122 mm[Hg] Elissa Tannhof PUBLIC POLICY PROFESSOR.CRISIS COUNSELOR Work Phone: [facility] 02-24-2023 13:44-0400 Body temperature 97.5 [degF] Treatment Wstr Work Phone: [facility] 02-24-2023 13:44-0400 Body weight 104.55 kg Treatment Wstr Work Phone: [facility] 02-24-2023 13:44-0400 Diastolic blood pressure 80 mm[Hg] Treatment Wstr Work Phone: [facility] 02-24-2023 13:44-0400 Heart rate 65 /min Treatment Wstr Work Phone: [facility] 02-24-2023 13:44-0400 Systolic blood pressure 154 mm[Hg] Treatment Wstr Work Phone: [facility] 02-21-2023 10:39-0400 Diastolic blood pressure 67 mm[Hg] Franklyn Juares MD Work Phone: [facility] 02-21-2023 10:39-0400 Heart rate 67 /min Franklyn Juares MD Work Phone: [facility] 02-21-2023 10:39-0400 Systolic blood pressure 140 mm[Hg] Franklyn Juares MD Work Phone: [facility] 12-30-2022 14:35-0400 Diastolic blood pressure 66 mm[Hg] Treatment Wstr Work Phone: [facility] 12-30-2022 14:35-0400 Heart rate 69 /min Treatment Wstr Work Phone: [facility] 12-30-2022 14:35-0400 Systolic blood pressure 138 mm[Hg] Treatment Wstr Work Phone: [facility] 12-30-2022 14:11-0400 Body temperature 97.59 [degF] Treatment Wstr Work Phone: [facility] 12-30-2022 14:11-0400 Body weight 101.83 kg Treatment Wstr Work Phone: [facility] 12-30-2022 14:11-0400 SaO2% (BldA) [Mass fraction] 100 % Treatment Wstr Work Phone: [facility] 12-25-2022 10:52-0400 Diastolic blood pressure 80 mm[Hg] Gini Ayala APRN.CNP Work Phone: [facility] 12-25-2022 10:52-0400 Heart rate 78 /min Gini Ayala PUBLIC POLICY PROFESSOR.CRISIS COUNSELOR Work Phone: [facility] 12-25-2022 10:52-0400 Respiratory rate 18 /min Gini Knightagen PUBLIC POLICY PROFESSOR.CRISIS COUNSELOR Work Phone: [facility] 12-25-2022 10:52-0400 SaO2% (BldA) [Mass fraction] 98 % Gini Haagen PUBLIC POLICY PROFESSOR.CRISIS COUNSELOR Work Phone: [facility] 12-25-2022 10:52-0400 Systolic blood pressure 132 mm[Hg] Gini Ayala PUBLIC POLICY PROFESSOR.CRISIS COUNSELOR Work Phone: [facility] 12-17-2022 14:07-0400 Body height 156 cm Anca Almonte MD Work Phone: [facility] 12-17-2022 14:07-0400 Body temperature 97.7 [degF] Anca Almonte MD Work Phone: [facility] 12-17-2022 14:07-0400 Body weight 104.55 kg Anca Almonte MD Work Phone: [facility] 12-17-2022 14:07-0400 Diastolic blood pressure 66 mm[Hg] Anca Almonte MD Work Phone: [facility] 12-17-2022 14:07-0400 Heart rate 73 /min Anca Almonte MD Work Phone: [facility] 12-17-2022 14:07-0400 SaO2% (BldA) [Mass fraction] 98 % Anca Almonte MD Work Phone: [facility] 12-17-2022 14:07-0400 Systolic blood pressure 128 mm[Hg] Anca Almonte MD Work Phone: [facility] 12-09-2022 15:17-0400 Body weight 103.42 kg Sylvia Lizama MD Work Phone: [facility] 12-09-2022 15:17-0400 Diastolic blood pressure 82 mm[Hg] Sylvia Lizama MD Work Phone: [facility] 12-09-2022 15:17-0400 Heart rate 80 /min Sylvia Lizama MD Work Phone: [facility] 12-09-2022 15:17-0400 SaO2% (BldA) [Mass fraction] 99 % Sylvia Lizama MD Work Phone: [facility] 12-09-2022 15:17-0400 Systolic blood pressure 182 mm[Hg] Sylvia Lizama MD Work Phone: [facility] 11-27-2022 08:48-0500 Body height 157.5 cm Sylvia Lizama MD Work Phone: [facility] 11-27-2022 08:48-0500 Body weight 101.15 kg Sylvia Lizama MD Work Phone: [facility] 11-27-2022 08:48-0500 Diastolic blood pressure 70 mm[Hg] Sylvia Lizama MD Work Phone: [facility] 11-27-2022 08:48-0500 Heart rate 72 /min Sylvia Lizama MD Work Phone: [facility] 11-27-2022 08:48-0500 SaO2% (BldA) [Mass fraction] 99 % Sylvia Lizama MD Work Phone: [facility] 11-27-2022 08:48-0500 Systolic blood pressure 138 mm[Hg] Sylvia Lizama MD Work Phone: [facility] 11-25-2022 11:18-0500 Body temperature 97.59 [degF] Anca Almonte MD Work Phone: [facility] 11-25-2022 11:18-0500 Body weight 100.7 kg Lab/Port Wstr Work Phone: [facility] 11-25-2022 11:18-0500 Diastolic blood pressure 60 mm[Hg] Anca Almonte MD Work Phone: [facility] 11-25-2022 11:18-0500 Heart rate 74 /min Anca Almonte MD Work Phone: [facility] 11-25-2022 11:18-0500 Systolic blood pressure 123 mm[Hg] Anca Almonte MD Work Phone: [facility] 11-07-2022 13:20-0500 Body weight 101.15 kg NA Lemus PA-C Work Phone: [facility] 11-07-2022 13:20-0500 Diastolic blood pressure 88 mm[Hg] NA Lemus PA-C Work Phone: [facility] 11-07-2022 13:20-0500 Heart rate 82 /min NA Lemus PA-C Work Phone: [facility] 11-07-2022 13:20-0500 Respiratory rate 20 /min NA Lemus PA-C Work Phone: [facility] 11-07-2022 13:20-0500 SaO2% (BldA) [Mass fraction] 99 % NA Lemus PA-C Work Phone: [facility] 11-07-2022 13:20-0500 Systolic blood pressure 166 mm[Hg] NA Lemus PA-C Work Phone: [facility] 10-30-2022 10:59-0500 Body temperature 97.59 [degF] Treatment Wstr Work Phone: [facility] 10-30-2022 10:59-0500 Diastolic blood pressure 69 mm[Hg] Treatment Wstr Work Phone: [facility] 10-30-2022 10:59-0500 Heart rate 65 /min Treatment Wstr Work Phone: [facility] 10-30-2022 10:59-0500 SaO2% (BldA) [Mass fraction] 99 % Treatment Wstr Work Phone: [facility] 10-30-2022 10:59-0500 Systolic blood pressure 169 mm[Hg] Treatment Wstr Work Phone: [facility] 10-28-2022 12:09-0500 Diastolic blood pressure 84 mm[Hg] Brendon Coppola APRN.CNP Work Phone: [facility] 10-28-2022 12:09-0500 Systolic blood pressure 168 mm[Hg] Brendon Coppola PUBLIC POLICY PROFESSOR.CRISIS COUNSELOR Work Phone: [facility] 10-28-2022 11:03-0500 Body temperature 97.9 [degF] Brendon Coppola PUBLIC POLICY PROFESSOR.CRISIS COUNSELOR Work Phone: [facility] 10-28-2022 11:03-0500 Body weight 101.15 kg Brendon Coppola PUBLIC POLICY PROFESSOR.CRISIS COUNSELOR Work Phone: [facility] 10-28-2022 11:03-0500 Heart rate 73 /min Brendon Coppola PUBLIC POLICY PROFESSOR.CRISIS COUNSELOR Work Phone: [facility] 10-03-2022 14:14-0500 Body temperature 97.7 [degF] Injection Wstr Work Phone: [facility] 10-03-2022 14:14-0500 Body weight 102.06 kg Injection Wstr Work Phone: [facility] 10-03-2022 14:14-0500 Diastolic blood pressure 84 mm[Hg] Injection Wstr Work Phone: [facility] 10-03-2022 14:14-0500 Heart rate 60 /min Injection Wstr Work Phone: [facility] 10-03-2022 14:14-0500 Systolic blood pressure 158 mm[Hg] Injection Wstr Work Phone: [facility] 10-02-2022 11:20-0500 Body temperature 98.4 [degF] Treatment Wstr Work Phone: [facility] 10-02-2022 11:20-0500 Diastolic blood pressure 81 mm[Hg] Treatment Wstr Work Phone: [facility] 10-02-2022 11:20-0500 Heart rate 67 /min Treatment Wstr Work Phone: [facility] 10-02-2022 11:20-0500 SaO2% (BldA) [Mass fraction] 98 % Treatment Wstr Work Phone: [facility] 10-02-2022 11:20-0500 Systolic blood pressure 169 mm[Hg] Treatment Wstr Work Phone: [facility] 10-02-2022 10:00-0500 Body weight 102.06 kg Treatment Wstr Work Phone: [facility] 10-02-2022 10:00-0500 Respiratory rate 18 /min Treatment Wstr Work Phone: [facility] 10-01-2022 09:00-0500 Diastolic blood pressure 76 mm[Hg] Treatment Wstr Work Phone: [facility] 10-01-2022 09:00-0500 Heart rate 59 /min Treatment Wstr Work Phone: [facility] 10-01-2022 09:00-0500 Systolic blood pressure 194 mm[Hg] Treatment Wstr Work Phone: [facility] 10-01-2022 08:15-0500 Body temperature 97.59 [degF] Treatment Wstr Work Phone: [facility] 09-03-2022 13:00-0500 Body temperature 97.59 [degF] Treatment Wstr Work Phone: [facility] 09-03-2022 13:00-0500 Diastolic blood pressure 81 mm[Hg] Treatment Wstr Work Phone: [facility] 09-03-2022 13:00-0500 Heart rate 59 /min Treatment Wstr Work Phone: [facility] 09-03-2022 13:00-0500 Respiratory rate 18 /min Treatment Wstr Work Phone: [facility] 09-03-2022 13:00-0500 SaO2% (BldA) [Mass fraction] 99 % Treatment Wstr Work Phone: [facility] 09-03-2022 13:00-0500 Systolic blood pressure 158 mm[Hg] Treatment Wstr Work Phone: [facility] 09-02-2022 12:47-0500 Diastolic blood pressure 94 mm[Hg] Treatment Wstr Work Phone: [facility] 09-02-2022 12:47-0500 Heart rate 71 /min Treatment Wstr Work Phone: [facility] 09-02-2022 12:47-0500 Systolic blood pressure 185 mm[Hg] Treatment Wstr Work Phone: [facility] 09-02-2022 08:11-0500 Body temperature 98.49 [degF] Treatment Wstr Work Phone: [facility] 09-02-2022 08:11-0500 SaO2% (BldA) [Mass fraction] 97 % Treatment Wstr Work Phone: [facility] 08-30-2022 13:29-0500 Body temperature 97.59 [degF] Melba Escudero MD Work Phone: [facility] 08-30-2022 13:29-0500 Body weight 99.79 kg Melba Escudero MD Work Phone: [facility] 08-30-2022 13:29-0500 Diastolic blood pressure 74 mm[Hg] Melba Escudero MD Work Phone: [facility] 08-30-2022 13:29-0500 Heart rate 65 /min Melba Escudero MD Work Phone: [facility] 08-30-2022 13:29-0500 Systolic blood pressure 145 mm[Hg] Melba Escudero MD Work Phone: [facility] 08-04-2022 15:00-0500 Body temperature 98.6 [degF] Dr. Sylvia Lizama Work Phone: [facility] Work Phone: 08-04-2022 15:00-0500 Diastolic blood pressure 70 mm[Hg] Dr. Sylvia Lizama Work Phone: [facility] Work Phone: 08-04-2022 15:00-0500 Heart rate 70 /min Dr. Sylvia Lizama Work Phone: [facility] Work Phone: 08-04-2022 15:00-0500 Respiratory rate 18 /min Dr. Sylvia Lizama Work Phone: [facility] Work Phone: 08-04-2022 15:00-0500 SaO2% (BldA) [Mass fraction] 95 % Dr. Sylvia Lizama Work Phone: [facility] Work Phone: 08-04-2022 15:00-0500 Systolic blood pressure 154 mm[Hg] Dr. Sylvia Lizama Work Phone: [facility] Work Phone: 08-02-2022 21:12-0500 Inhaled oxygen flow rate 1.5 L/min Dr. Sylvia Lizama Work Phone: [facility] Work Phone: 08-02-2022 05:25-0500 Body height 157.[address] Sylvia Lizama Work Phone: [facility] Work Phone: 08-02-2022 05:25-0500 Body mass index (BMI) [Ratio] 38.9 kg/m2 Dr. Sylvia Lizama Work Phone: [facility] Work Phone: 08-02-2022 05:25-0500 Body weight 96.[address] Syliva Lizama Work Phone: [facility] Work Phone: 07-23-2022 10:06-0400 Body temperature 98.6 [degF] Melba Escudero MD Work Phone: [facility] 07-23-2022 10:06-0400 Body weight 98.2 kg Melba Escudero MD Work Phone: [facility] 07-23-2022 10:06-0400 Diastolic blood pressure 61 mm[Hg] Melba Escudero MD Work Phone: [facility] 07-23-2022 10:06-0400 Heart rate 79 /min Melba Escudero MD Work Phone: [facility] 07-23-2022 10:06-0400 SaO2% (BldA) [Mass fraction] 96 % Melba Escudero MD Work Phone: [facility] 07-23-2022 10:06-0400 Systolic blood pressure 110 mm[Hg] Melba Escudero MD Work Phone: [facility] 06-28-2022 09:00-0400 Body temperature 98.1 [degF] Treatment Wstr Work Phone: [facility] 06-28-2022 09:00-0400 Diastolic blood pressure 59 mm[Hg] Treatment Wstr Work Phone: [facility] 06-28-2022 09:00-0400 Heart rate 69 /min Treatment Wstr Work Phone: [facility] 06-28-2022 09:00-0400 Systolic blood pressure 153 mm[Hg] Treatment Wstr Work Phone: [facility] 06-19-2022 09:52-0400 Body temperature 98.01 [degF] César Masci DO Work Phone: [facility] 06-19-2022 09:52-0400 Body weight 100.47 kg César Masci DO Work Phone: [facility] 06-19-2022 09:52-0400 Diastolic blood pressure 50 mm[Hg] César Masci DO Work Phone: [facility] 06-19-2022 09:52-0400 Heart rate 65 /min César Masci DO Work Phone: [facility] 06-19-2022 09:52-0400 Systolic blood pressure 115 mm[Hg] César Masci DO Work Phone: [facility] 06-10-2022 15:17-0400 Body height 157.5 cm Tima Peterson PA-C Work Phone: [facility] 06-10-2022 15:17-0400 Body temperature 97.39 [degF] Tima Peterson PA-C Work Phone: [facility] 06-10-2022 15:17-0400 Body weight 100.7 kg Tima Snellville PA-C Work Phone: [facility] 06-10-2022 15:17-0400 Diastolic blood pressure 62 mm[Hg] Tima Snellville PA-C Work Phone: [facility] 06-10-2022 15:17-0400 Heart rate 86 /min Tima Snellville PA-C Work Phone: [facility] 06-10-2022 15:17-0400 SaO2% (BldA) [Mass fraction] 94 % Tima Snellville PA-C Work Phone: [facility] 06-10-2022 15:17-0400 Systolic blood pressure 142 mm[Hg] Tima Snellville PA-C Work Phone: [facility] 05-31-2022 08:45-0400 Body height 157.5 cm Pacc 1 Work Phone: [facility] 05-31-2022 08:45-0400 Body temperature 97.2 [degF] Pacc 1 Work Phone: [facility] 05-31-2022 08:45-0400 Body weight 100.25 kg Pacc 1 Work Phone: [facility] 05-31-2022 08:45-0400 Diastolic blood pressure 58 mm[Hg] Pacc 1 Work Phone: [facility] 05-31-2022 08:45-0400 Heart rate 72 /min Pacc 1 Work Phone: [facility] 05-31-2022 08:45-0400 Respiratory rate 16 /min Pacc 1 Work Phone: [facility] 05-31-2022 08:45-0400 SaO2% (BldA) [Mass fraction] 97 % Pacc 1 Work Phone: [facility] 05-31-2022 08:45-0400 Systolic blood pressure 118 mm[Hg] Pacc 1 Work Phone: [facility] 05-28-2022 14:50-0400 Body height 157.5 cm Zeny Crowder MD Work Phone: [facility] 05-28-2022 14:50-0400 Body temperature 97.7 [degF] Zeny Crowder MD Work Phone: [facility] 05-28-2022 14:50-0400 Body weight 101.06 kg Zeny Crowder MD Work Phone: [facility] 05-28-2022 14:50-0400 Diastolic blood pressure 72 mm[Hg] Zeny Crowder MD Work Phone: [facility] 05-28-2022 14:50-0400 Heart rate 86 /min Zeny Crowder MD Work Phone: [facility] 05-28-2022 14:50-0400 SaO2% (BldA) [Mass fraction] 96 % Zeny Corwder MD Work Phone: [facility] 05-28-2022 14:50-0400 Systolic blood pressure 148 mm[Hg] Zeny Crowder MD Work Phone: [facility] 05-13-2022 11:36-0400 Body temperature 98.1 [degF] Helen Praisler-Wood PUBLIC POLICY PROFESSOR.CRISIS COUNSELOR Work Phone: [facility] 05-13-2022 11:36-0400 Body weight 100.15 kg Helen Praisler-Wood PUBLIC POLICY PROFESSOR.CRISIS COUNSELOR Work Phone: [facility] 05-13-2022 11:36-0400 Diastolic blood pressure 82 mm[Hg] Helen Praisler-Wood PUBLIC POLICY PROFESSOR.CRISIS COUNSELOR Work Phone: [facility] 05-13-2022 11:36-0400 Heart rate 75 /min Helen Praisler-Wood PUBLIC POLICY PROFESSOR.CRISIS COUNSELOR Work Phone: [facility] 05-13-2022 11:36-0400 Respiratory rate 22 /min Helen Praisler-Wood PUBLIC POLICY PROFESSOR.CRISIS COUNSELOR Work Phone: [facility] 05-13-2022 11:36-0400 SaO2% (BldA) [Mass fraction] 97 % Helen Bonilla PUBLIC POLICY PROFESSOR.CRISIS COUNSELOR Work Phone: [facility] 05-13-2022 11:36-0400 Systolic blood pressure 130 mm[Hg] Helen Bonilla PUBLIC POLICY PROFESSOR.CRISIS COUNSELOR Work Phone: [facility] 05-07-2022 09:00-0400 Body height 157.5 cm Zeny Crowder MD Work Phone: [facility] 05-07-2022 09:00-0400 Body temperature 97.3 [degF] Zeny Crowder MD Work Phone: [facility] 05-07-2022 09:00-0400 Body weight 100.7 kg Zeny Crowder MD Work Phone: [facility] 05-07-2022 09:00-0400 Diastolic blood pressure 74 mm[Hg] Zeny Crowder MD Work Phone: [facility] 05-07-2022 09:00-0400 Heart rate 92 /min Zeny Crowder MD Work Phone: [facility] 05-07-2022 09:00-0400 SaO2% (BldA) [Mass fraction] 99 % Zeny Crowder MD Work Phone: [facility] 05-07-2022 09:00-0400 Systolic blood pressure 128 mm[Hg] Zeny Crowder MD Work Phone: [facility] 04-22-2022 15:43-0400 Diastolic blood pressure 90 mm[Hg] Sylvia Lizama MD Work Phone: [facility] 04-22-2022 15:43-0400 Systolic blood pressure 144 mm[Hg] Sylvia Lizama MD Work Phone: [facility] 04-22-2022 15:23-0400 Body height 157.5 cm Sylvia Lizama MD Work Phone: [facility] 04-22-2022 15:23-0400 Body weight 101.61 kg Sylvia Lizama MD Work Phone: [facility] 04-22-2022 15:23-0400 Heart rate 67 /min Sylvia Lizama MD Work Phone: [facility] 04-22-2022 15:23-0400 SaO2% (BldA) [Mass fraction] 98 % Sylvia Lizama MD Work Phone: [facility] 01-29-2022 16:24-0400 Body temperature 98.91 [degF] Melba Escudero MD Work Phone: [facility] 01-29-2022 16:24-0400 Body weight 98.66 kg Mebla Escudero MD Work Phone: [facility] 01-29-2022 16:24-0400 Diastolic blood pressure 52 mm[Hg] Melba Escudero MD Work Phone: [facility] 01-29-2022 16:24-0400 Heart rate 71 /min Melba Escudero MD Work Phone: [facility] 01-29-2022 16:24-0400 SaO2% (BldA) [Mass fraction] 97 % Melba Escudero MD Work Phone: [facility] 01-29-2022 16:24-0400 Systolic blood pressure 122 mm[Hg] Melba Escudero MD Work Phone: [facility] 09-13-2020 14:30-0500 BP Diastolic 60 mm[Hg] [facility] , [place] 09-13-2020 14:30-0500 BP Systolic 132 mm[Hg] [facility] , [place] 09-13-2020 14:30-0500 Pulse (Heart Rate) 85 /min [facility], [place] 09-13-2020 14:30-0500 Pulse Oximetry 96 % [facility] , [place] 09-13-2020 14:30-0500 Respiratory Rate 18 /min [facility], [place] 09-13-2020 11:48-0500 BMI (Body Mass Index) 42.98 kg/m2 [place], [place] 09-13-2020 11:48-0500 Body Temperature 98.71 [degF] Pavel Watts [facility], [place] 09-13-2020 11:48-0500 Body weight 106.59 [facility] [place] 09-13-2020 11:48-0500 Height 157.5 cm [facility] [place] 09-06-2020 20:25-0500 Body Temperature 98.49 [degF] Kaden [facility], [place] 09-06-2020 20:25-0500 BP Diastolic 70 mm[Hg] [facility] , [place] 09-06-2020 20:25-0500 BP Systolic 133 mm[Hg] [facility] , [place] 09-06-2020 20:25-0500 Pulse (Heart Rate) 80 /min [facility], [place] 09-06-2020 20:25-0500 Respiratory Rate 22 /min [facility], [place] 09-06-2020 17:04-0500 Pulse Oximetry 94 % [facility] , [place] 09-06-2020 15:49-0500 BMI (Body Mass Index) 42.98 kg/m2 [facility], [place] 09-06-2020 15:49-0500 Body weight 106.59 kg [facility] , [place] 09-06-2020 15:49-0500 Height 157.5 cm [place], [place] NEGATED: Highlighted [id number] 11:06-0400 Body height 156.21 cm [facility] Work Phone: NEGATED: Highlighted [id number] 11:06-0400 Body height 156 cm [facility] Work Phone: NEGATED: Highlighted [id number] 11:06-0400 Body mass index (BMI) [Ratio] 38.43 kg/m2 [facility] Work Phone: NEGATED: Highlighted [id number] 11:06-0400 Body weight 93.44 kg Roselia Tanner [facility] Work Phone: NEGATED: Highlighted [id number] 11:06-0400 Body weight 94 kg Roselia Tanner [facility] Work Phone: Encounters Encounter Date Encounter Type Care Provider Facility Start: 04-01-2025 Non-patient / Non-visit Dr. Andrade alaniz DO [facility] Work Phone: Start: 04-01-2025 Evaluation and manag ement of inpatient Dr. Andrade Tapia 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) Start: 03-14-2025 End: 03-14-2025 ambulatory [facility] Facility:[facility] Start: 03-14-2025 End: 03-14-2025 Office outpatient visit 25 minutes Gini Ayala PUBLIC POLICY PROFESSOR.CRISIS COUNSELOR Work Phone: [facility] Comment on above: Essential hypertensi on (Primary Dx) Start: 03-14-2025 End: 03-14-2025 ambulatory SYLVIA LIZAMA Facility:[facility] Start: 03-14-2025 End: 03-14-2025 Subsequent hospital visit by physician Faith [facility] ([facility]-Stat) Work Phone: Cat Scan Comment on above: 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) [C82.08] Start: 03-01-2025 End: 03-01-2025 ambulatory SYLVIA Funk DL Facility:[facility] Start: 03-01-2025 End: 03-01-2025 Patient encounter procedure Judith Pickard APRN.CNP Work Phone: [facility] Comment on above: Initial Medicare ann ual wellness visit (Primary Dx); Neuropathy; Screening for cholesterol level; Screening for diabetes mellitus; Cognitive changes; Mixed hyperlipidemia; B-cell lymphoma, unspecified B-cell lymphoma type, unspecified body region (HCC); Debility; Chronic kidney disease, unspecified CKD stage; Hypothyroidism, unspecified type; Spinal stenosis, lumbar region, with neurogenic claudication Start: 02-24-2025 End: 02-24-2025 ambulatory Harini Martinez RN Work Phone: Orthopaedic Physician Assistant Management Comment on above: Primary Care Coordin ator- Other (Chart review) Start: 12-28-2024 End: 12-28-2024 amb[address]IA [address]ing DL Facility:[facility] Start: 12-28-2024 End: 12-28-2024 Patient encounter procedure Sylvia Lizama MD Work Phone: [facility] Comment on above: Urinary tract infect ion without hematuria, site unspecified (Primary Dx); Debility; Essential hypertension; Mixed hyperlipidemia; Chronic kidney disease, unspecified CKD stage; Hypothyroidism, unspecified type; B-cell lymphoma, unspecified B-cell lymphoma type, unspecified body region (HCC); 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 ([facility]); Spinal stenosis, lumbar region, with neurogenic claudication; Anxiety with depression; Body mass index (BMI) 40.0-44.9, adult ([facility]); Neuropathy; Tremor; Urinary incontinence, unspecified type Start: 12-20-2024 End: 12-23-2024 Patient Outreach Sylvia Lizama MD Work Phone: [facility] Comment on above: Transition Of Care Elevated BP- TCM enc ounter Start: 12-15-2024 End: 12-15-2024 Patient encounter procedure Christina MALONE -[facility] Work Phone: Start: 12-15-2024 End: 12-15-2024 ambulatory Christina Knox [employer] Facility[place] Start: 12-15-2024 Registered Referred Rafat Dexter Start: 12-10-2024 End: 12-10-2024 ambulatory SYLVIA LIZAMA Facility:[facility] Start: 12-10-2024 End: 12-10-2024 Office outpatient visit 15 minutes César Quintero DO Work Phone: Hematology/Oncology Comment on above: 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 Rafat Casper MD -[facility] Work Phone: Start: 12-02-2024 End: 12-02-2024 Patient encounter procedure Christina Knox MECHANICAL CAD DRAFTER- -[facility] Work Phone: Start: 12-02-2024 End: 12-02-2024 ambulatory Christina Knox MECHANICAL CAD DRAFTER Facility[place] Start: 12-02-2024 Registered Referred Rafat Dexter Start: 12-01-2024 Non-patient / Non-visit Dr. Hanh Joiner MD -[facility] Work Phone: Start: 11-30-2024 Non-patient / Non-visit Dr. Sandee LARIOS -[facility] Work Phone: Start: 11-29-2024 Non-patient / Non-visit Dr. Alysha connolly MD -[facility] Work Phone: Start: 11-28-2024 Non-patient / Non-visit Dr. Alysha connolly MD -[facility] Work Phone: Start: 11-27-2024 ambulatory Jaxson Tucker ility:[facility] Start: 11-27-2024 End: 12-01-2024 Evaluation and management of inpatient Dr. Kenyon Joiner MD -[facility] Work Phone: Start: 11-27-2024 Non-patient / Non-visit Dr. Alysha connolly MD -[facility] Work Phone: Start: 11-26-2024 ambulatory Jaxson Tucker ility:[facility] Start: 11-26-2024 Evaluation and manag ement of inpatient Dr. Jaxson Meehan DO [facility] Unit Work Phone: Start: 11-26-2024 Non-patient / Non-visit Dr. Ignacio [facility] Work Phone: Start: 11-26-[address] Haja Lizama MD Work Phone: [facility] Work Phone: Start: 11-26-2024 End: 11-26-2024 Telephone encounter César Quintero DO Work Phone: Hematology/Oncology Comment on above: Patient Update Start: 11-15-2024 End: 11-15-2024 Follow-up encounter Judith Pickard PUBLIC POLICY PROFESSOR.CRISIS COUNSELOR Work Phone: [facility] Start: 11-12-2024 End: 11-12-2024 Office outpatient visit 15 minutes Judith Pickard PUBLIC POLICY PROFESSOR.CRISIS COUNSELOR Work Phone: [facility] Comment on above: Essential hypertensi on (Primary Dx); Migraine without aura and without status migrainosus, not intractable; Hypothyroidism due to acquired atrophy of thyroid; Anxiety with depression; GERD without esophagitis; Viral URI Start: 11-12-2024 End: 11-12-2024 ambulatory [facility] Facility:[facility] Start: 11-12-2024 End: 11-12-2024 ambulatory [facility] Start: 11-12-2024 End: 11-12-2024 Subsequent hospital visit by physician Faith [facility] Jed (I-Stat) Work Phone: Cat Scan Comment on above: 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 Zeny Wolff DO -Emergency Department Work Phone: Start: 11-02-2024 End: 01-02-2025 Refill César Quintero DO Work Phone: Hematology/Oncology Comment on above: Refill Request Results Start: 11-01-2024 End: 11-01-2024 Subsequent hospital visit by physician Xr [facility] Work Phone: Radiology Comment on above: Acute cough [R05.1] Start: 11-01-2024 End: 11-01-2024 [facility] Facility:[facility] Start: 11-01-2024 End: 11-01-2024 Patient encounter procedure Elida Lozada APRN.CRISIS COUNSELOR Work Phone: [facility] Comment on above: Burning with urinati on (Primary Dx); Acute cough; URI, acute Start: 10-08-2024 End: 10-08-2024 ambulatory Treatment Rm 5 Scott [facility] Work Phone: Hematology/Oncology Comment on above: 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) Start: 10-01-2024 End: 10-01-2024 ambulatory Treatment Rm 9 Scott [facility] Work Phone: Hematology/Oncology Comment on above: 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) Start: 09-24-2024 End: 09-24-2024 ambulatory Treatment Rm 10 Scott [facility] Work Phone: Hematology/Oncology Comment on above: 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) Start: 09-20-2024 End: 09-20-2024 Telephone encounter Chinyere Shea RN Work Phone: Hematology/Oncology Comment on above: Care Coordination (C YCLE 1/DAY 1 POST TREATMENT CALL ) Start: 09-17-2024 End: 09-17-2024 ambulatory Treatment Rm 2 Scott [facility] Work Phone: Hematology/Oncology Comment on above: 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) Start: 09-16-2024 End: 09-16-2024 Orders Only Prince Fang MD Work Phone: Hematology/Oncology Start: 09-06-2024 End: 09-06-2024 Telephone encounter Financial Navigator Scott Work Phone: Hematology/Oncology Comment on above: Benefits Investigati on Start: 09-03-2024 End: 09-03-2024 Telephone encounter Shannon Hui RN Hematology/Oncology Comment on above: 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 - O 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 (Introduction/change in treatment ) avs Start: 09-03-2024 End: 09-03-2024 ambulatory [facility] Facility:[facility] Start: 09-03-2024 End: 09-03-2024 ambulatory [facility] Facility:[facility] Start: 09-03-2024 End: 09-03-2024 Office outpatient visit 25 minutes César Quintero DO Work Phone: Hematology/Oncology Comment on above: 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) Start: 08-27-2024 End: 08-27-2024 ambulatory [facility] Facility:[facility] Start: 08-27-2024 End: 08-27-2024 ambulatory [facility] Facility:[facility] Start: 08-27-2024 End: 08-27-2024 Subsequent hospital visit by physician Ct [facility] (I-Stat) Work Phone: Cat Scan Comment on above: 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] Start: 08-12-2024 End: 08-12-2024 [facility] Facility:[facility] Start: 08-12-2024 End: 08-12-2024 Subsequent hospital visit by physician Mri Radio [facility] (I-Stat/1.5t) Work Phone: Radiology Comment on above: Worsening headaches [R51.9] Start: 08-11-2024 End: 08-11-2024 ambulatory Sylvia Lizama MD Work Phone: [facility] Comment on above: low blood pressure Start: 07-28-2024 End: 07-28-2024 Telephone encounter Missy Hirsch PA-C Work Phone: Neurology Comment on above: Insurance Authorizat ion (Prior authorization Quili[employer]) Results Start: 07-27-2024 End: 07-27-2024 [facility] Facility:[facility] Start: 07-27-2024 End: 07-27-2024 Patient encounter procedure Missy Hirsch PA-C Work Phone: Neurology Comment on above: Worsening headaches (Primary Dx); Disorder of labyrinth, unspecified laterality; Intractable chronic migraine with aura and without status migrainosus Burning with urinati on (Primary Dx); Acute cystitis with hematuria Start: 07-27-2024 End: 07-27-2024 [facility] SYLVIA LIZAMA Facility:[facility] Start: 07-14-2024 End: 07-14-2024 [facility] Start: 07-14-2024 End: 07-14-2024 Patient encounter procedure Franklyn Juares MD Work Phone: Ophthalmology Comment on above: Combined forms of ag e-related cataract of both eyes (Primary Dx); Other headache syndrome; Ocular hypertension, bilateral; Optic cupping of both eyes; Essential hypertension; Sleep apnea, unspecified type; Hypothyroidism, unspecified type; History of blood clots; Anxiety with depression Start: 07-09-2024 End: 07-09-2024 ambulatory [facility] Facility:[facility] Start: 07-09-2024 End: 07-09-2024 Subsequent hospital visit by physician Screen Mammo [facility] Mammogram Comment on above: 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] Start: 07-06-2024 End: 07-06-2024 Office outpatient visit 25 minutes Judith Pickard PUBLIC POLICY PROFESSOR.CRISIS COUNSELOR Work Phone: [facility] Comment on above: Disorder of labyrint h, unspecified laterality (Primary Dx); Essential hypertension; Impacted cerumen, unspecified laterality; Dizziness Start: 07-06-2024 End: 07-06-2024 ambulatory [facility] Facility:[facility] Start: 07-04-2024 End: 07-04-2024 ambulatory Layla Malave RN NURSE APARTMENT RENTAL AGENT Comment on above: Hypertension Start: 07-04-2024 End: 07-04-2024 Emergency department patient visit [facility] Facility:[facility] Start: 07-02-2024 End: 07-02-2024 ambulatory [facility] Facility:[facility] Start: 07-02-2024 End: 07-02-2024 Office outpatient visit 15 minutes Judith Pickard PUBLIC POLICY PROFESSOR.CRISIS COUNSELOR Work Phone: [facility] Comment on above: Vision changes (Prim chelsea Dx); Disorder of labyrinth, unspecified laterality; Acute frontal sinusitis, recurrence not specified Start: 06-30-2024 End: 07-01-2024 Telephone encounter Sylvia Lizama MD Work Phone: [facility] Comment on above: Future Appointment Start: 06-17-2024 End: 06-17-2024 Office outpatient visit 25 minutes Judith Pickard PUBLIC POLICY PROFESSOR.CRISIS COUNSELOR Work Phone: [facility] Comment on above: History of DVT (deep vein thrombosis) (Primary Dx); Essential hypertension; Migraine without aura and without status migrainosus, not intractable; Hypothyroidism, unspecified type; Urge incontinence; Hair loss; Angioedema, subsequent encounter; Hypopotassemia Start: 06-17-2024 End: 06-17-2024 [facility] Facility:[facility] Start: 05-25-2024 End: 05-27-2024 ambulatory Judith Pickard PUBLIC POLICY PROFESSOR.CRISIS COUNSELOR Work Phone: [facility] Comment on above: Lisa info about m edicines we are watching Start: 05-18-2024 End: 05-18-2024 Office outpatient visit 15 minutes Judith Pickard PUBLIC POLICY PROFESSOR.CRISIS COUNSELOR Work Phone: [facility] Comment on above: Migraine without aur a and without status migrainosus, not intractable (Primary Dx); Left arm pain; Neck pain; DDD (degenerative disc disease), lumbar; Essential hypertension; Pure hypercholesterolemia; Orthostatic dizziness; Dizziness Start: 05-18-2024 End: 05-18-2024 [facility] Facility:[facility] Start: 05-12-2024 End: 05-12-2024 Telephone encounter Sathya Rajan MD Work Phone: [facility] Comment on above: Results (Urine Cx mi xed) Start: 05-11-2024 End: 05-11-2024 [facility] Facility:[facility] Start: 05-11-2024 End: 05-11-2024 Patient encounter procedure Enid Potter APRN.CRISIS COUNSELOR Work Phone: [facility] Comment on above: Urinary frequency (P rimary Dx) Start: 05-08-2024 End: 05-08-2024 Emergency department patient visit Evans [facility] Facility:[facility] Start: 05-03-2024 End: 05-03-2024 Office outpatient visit 15 minutes Judith Pickard PUBLIC POLICY PROFESSOR.CRISIS COUNSELOR Work Phone: [facility] Comment on above: Essential hypertensi on (Primary Dx); GERD without esophagitis; Diarrhea, unspecified type Start: 05-03-2024 End: 05-03-2024 [facility] Facility:[facility] Start: 04-29-2024 End: 04-29-2024 ambulatory [facility] Facility:[facility] Start: 04-29-2024 End: 04-29-2024 Subsequent hospital visit by physician Zeny Crowder MD Work Phone: Ambulatory Surgery Comment on above: Diarrhea, unspecifie d type [R19.7] Start: 04-26-2024 Telephone encounter Brendon rapp PUBLIC POLICY PROFESSOR.CRISIS COUNSELOR Work Phone: Hematology/Oncology Start: 04-19-2024 ambulatory Bozena dudley RN Work Phone: Orthopaedic Physician Assistant Management Start: 04-19-2024 Telephone follow-up Bozena Hirsch RN Work Phone: Orthopaedic Physician Assistant Management Comment on above: Transition Of Care ( TCM followup ) Weekly phone contact (Recurring) for Transitional Care Management Start: 04-15-2024 End: 04-15-2024 ambulatory [facility] Facility:[facility] Start: 04-15-2024 End: 04-15-2024 Subsequent hospital visit by physician Faith [facility] (I-Stat) Work Phone: Cat Scan Comment on above: 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] Soft tissue mass [M7 9.89] Start: 04-12-2024 ambulatory Bozena dudley RN Work Phone: Orthopaedic Physician Assistant Management Start: 04-12-2024 Telephone follow-up Bozena Hirsch RN Work Phone: Orthopaedic Physician Assistant Management Comment on above: Transition Of Care ( TCM OON follow up ) Weekly phone contact (Recurring) for Transitional Care Management Start: 04-08-2024 End: 04-08-2024 ambulatory Sylvia Lizama MD Work Phone: [facility] Comment on above: Hypotension Start: 04-08-2024 End: 04-08-2024 Office outpatient visit 15 minutes Judith Pickard PUBLIC POLICY PROFESSOR.CRISIS COUNSELOR Work Phone: [facility] Comment on above: BPPV (benign paroxys mal positional vertigo), unspecified laterality (Primary Dx) Start: 04-05-2024 ambulatory Kim medel RN Work Phone: Orthopaedic Physician Assistant Management Start: 04-05-2024 Telephone follow-up Kim rivera RN Work Phone: Orthopaedic Physician Assistant Management Comment on above: Transition Of Care ( Tcm follow up ) Weekly phone contact (Recurring) for Transitional Care Management Start: 04-03-2024 Refill Sylvia Lizama MD Work Phone: [facility] Comment on above: Refill Request Start: 04-02-2024 End: 04-02-2024 ambulatory SYLVIA LIZAMA Facility:[facility] Start: 04-02-2024 End: 04-02-2024 Patient encounter procedure Sylvia Lizama MD Work Phone: [facility] Comment on above: Diarrhea of infectio us origin (Primary Dx); Other primary thrombophilia (HCC); Body mass index (BMI) 40.0-44.9, adult (HCC); Essential hypertension; Hypertensive urgency; Chronic kidney disease, unspecified CKD stage; Hypothyroidism, unspecified type; 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); B-cell lymphoma, unspecified B-cell lymphoma type, unspecified body region (HCC); Soft tissue mass Start: 03-30-2024 Telephone encounter Sylvia Lizama MD Work Phone: [facility] Comment on above: Patient Update Start: 03-29-2024 End: 03-29-2024 Patient Outreach Boezna Hirsch RN Work Phone: Orthopaedic Physician Assistant Management Comment on above: Transition Of Care ( TCM/ OON HI / [facility] 03/26/24) Initial phone contact for Transitional Care Management Diarrhea, unspecifie d type Start: 03-24-2024 ambulatory [facility] Start: 03-24-2024 End: 03-26-2024 Evaluation and management of inpatient Kenyon Joiner Facility:[facility] Start: 03-24-2024 Telephone encounter Gini cowart APRN.CNP Work Phone: [facility] Comment on above: Patient Update Start: 03-23-2024 Telephone encounter Gini cowart PUBLIC POLICY PROFESSOR.CRISIS COUNSELOR Work Phone: [facility] Comment on above: Results Start: 03-19-2024 Refill Judith A S uppan PUBLIC POLICY PROFESSOR.DEVELOPMENTAL SERVICES WORKER Work Phone: [facility] Comment on above: Refill Request Start: 03-15-2024 ambulatory Abril nolen RN NURSE APARTMENT RENTAL AGENT Comment on above: Fatigue; Viral Syndr ome Start: 03-15-2024 End: 03-15-2024 Office outpatient visit 25 minutes Gini Ayala PUBLIC POLICY PROFESSOR.CRISIS COUNSELOR Work Phone: [facility] Comment on above: Diarrhea, unspecifie d type (Primary Dx); Sinobronchitis Start: 03-05-2024 ambulatory Judith A S uppan PUBLIC POLICY PROFESSOR.DEVELOPMENTAL SERVICES WORKER Work Phone: [facility] Comment on above: RESULTS Start: 03-05-2024 E-mail encounter [place] [facility] caregiver Judith A Suppan PUBLIC POLICY PROFESSOR.DEVELOPMENTAL SERVICES WORKER Work Phone: [facility] Start: 03-04-2024 End: 03-04-2024 Office outpatient visit 25 minutes Judith A Suppan PUBLIC POLICY PROFESSOR.DEVELOPMENTAL SERVICES WORKER Work Phone: [facility] Comment on above: Diarrhea, unspecifie d type (Primary Dx); Anxiety with depression; Chilling; Chills Start: 03-03-2024 ambulatory Sylvia Lizama MD Work Phone: [facility] Comment on above: Diarrhea Start: 02-19-2024 End: 02-19-2024 Patient encounter procedure Shaila Sergey PUBLIC POLICY PROFESSOR.CRISIS COUNSELOR Work Phone: OB/Gynecology Comment on above: Urinary incontinence without sensory awareness (Primary Dx) Start: 02-05-2024 End: 02-05-2024 Office outpatient visit 15 minutes Judith A Suppan PUBLIC POLICY PROFESSOR.DEVELOPMENTAL SERVICES WORKER Work Phone: [facility] Comment on above: Anxiety with depress ion (Primary Dx); Left arm pain; Neck pain; DDD (degenerative disc disease), lumbar Start: 01-09-2024 Telephone encounter Sylvia Lizama MD Work Phone: [facility] Comment on above: Dose Clarification ( Zoloft ) Start: 01-08-2024 Telephone encounter Brendon rapp PUBLIC POLICY PROFESSOR.CRISIS COUNSELOR Work Phone: Hematology/Oncology Start: 01-07-2024 End: 01-07-2024 Patient encounter procedure Sylvia Lizama MD Work Phone: [facility] Comment on above: Essential hypertensi on (Primary Dx); GERD without esophagitis; Mixed hyperlipidemia; Essential tremor; Hypothyroidism, unspecified type; B-cell lymphoma, unspecified B-cell lymphoma type, unspecified body region (HCC); Thrombocytopenia, secondary; Anxiety with depression; Bilateral carotid artery stenosis; History of DVT (deep vein thrombosis) Start: 01-02-2024 Telephone encounter Brendon rapp PUBLIC POLICY PROFESSOR.CRISIS COUNSELOR Work Phone: Hematology/Oncology Start: 12-30-2023 Telephone encounter Brendon rapp PUBLIC POLICY PROFESSOR.CRISIS COUNSELOR Work Phone: Hematology/Oncology Comment on above: Results Start: 12-24-2023 End: 12-24-2023 Subsequent hospital visit by physician [facility] Cat Scan Comment on above: 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] Start: 11-09-2023 Telephone encounter Kimberly Altamirano APRN.CRISIS COUNSELOR Work Phone: [facility] Comment on above: Results Start: 11-07-2023 End: 11-07-2023 Subsequent hospital visit by physician [facility] Work Phone: Radiology Comment on above: Neck mass [R22.1] Start: 2023 End: 2023 Patient encounter procedure Darrian HOPKINS Work Phone: [facility] Comment on above: Urinary frequency (P rimary Dx) Start: 10-27-2023 End: 10-27-2023 Patient encounter procedure Sathya Rajan MD Work Phone: [facility] Comment on above: URI, acute (Primary Dx); Choking episode; Neck mass Start: 09-02-2023 End: 09-02-2023 Patient encounter procedure Franklyn Juares MD Work Phone: Ophthalmology Comment on above: Ocular hypertension, bilateral (Primary Dx); Optic cupping of both eyes; Combined forms of age-related cataract of both eyes; Essential hypertension; CHRISTIANA (obstructive sleep apnea) Start: 08-25-2023 End: 08-25-2023 Patient encounter procedure Franklyn Juares MD Work Phone: Ophthalmology Comment on above: Primary open angle g laucoma (POAG) of both eyes, mild stage (Primary Dx); Optic cupping of both eyes; Combined form of age-related cataract, both eyes; Essential hypertension; CHRISTIANA (obstructive sleep apnea) Start: 07-25-2023 Telephone encounter Sylvia Lizama MD Work Phone: [facility] Comment on above: CPAP Supplies order Start: 07-08-2023 End: 07-08-2023 Patient encounter procedure Sylvia Lizama MD Work Phone: [facility] Comment on above: Essential hypertensi on (Primary Dx); GERD without esophagitis; Mixed hyperlipidemia; Non-rheumatic tricuspid valve insufficiency; Essential tremor; Other migraine without status migrainosus, not intractable; CHRISTIANA (obstructive sleep apnea); Gastroesophageal reflux disease, unspecified whether esophagitis present; B-cell lymphoma, unspecified B-cell lymphoma type, unspecified body region (HCC); Hypothyroidism, unspecified type; halfway current use of anticoagulant therapy; Valvular heart disease Start: 07-08-2023 Documentation procedure Mammog [place] Coordinator [facility] Start: 07-08-2023 Letter encounter Mammography Coordinator [facility] Department Start: 07-08-2023 End: 07-08-2023 Subsequent hospital visit by physician Screen Mammo [facility] Mammogram Comment on above: Encounter for screen ing mammogram for malignant neoplasm of breast [Z12.31] Start: 06-13-2023 End: 06-13-2023 Patient encounter procedure Prince Fang MD Work Phone: [facility] Start: 06-13-2023 End: 06-13-2023 ambulatory Lab/[facility] [place] [facility] Work Phone: Hematology/Oncology Comment on above: 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] Start: 06-05-2023 Telephone encounter César sigala DO Work Phone: Hematology/Oncology Comment on above: Appointment Start: 05-13-2023 End: 05-13-2023 ambulatory Abdullahi Guerra PT Work Phone: [facility] Comment on above: Left arm pain (Prima ry Dx); Neck pain Start: 05-09-2023 End: 05-09-2023 ambulatory Abdullahi Guerra PT Work Phone: [facility] Comment on above: Left arm pain (Prima ry Dx); Neck pain Start: 05-06-2023 End: 05-06-2023 ambulatory Sidra Kashuba CONGRESSIONAL REPRESENTATIVE Work Phone: [facility] Comment on above: Left arm pain (Prima ry Dx); Neck pain Start: 04-29-2023 End: 04-29-2023 ambulatory Sidra Kashuba CONGRESSIONAL REPRESENTATIVE Work Phone: [facility] Comment on above: Left arm pain (Prima ry Dx); Neck pain Start: 04-25-2023 End: 04-25-2023 ambulatory Sidra Kashuba CONGRESSIONAL REPRESENTATIVE Work Phone: [facility] Comment on above: Left arm pain (Prima ry Dx) Start: 04-17-2023 End: 04-17-2023 Refill Sylvia Lizama MD Work Phone: [facility] Comment on above: Refill Request Opened In Error Upper back pain on l eft side (Primary Dx) Start: 04-03-2023 End: 04-03-2023 Subsequent hospital visit by physician Xr [facility] Work Phone: Radiology Comment on above: Left arm pain [M79.6 02] Start: 04-03-2023 End: 04-03-2023 Patient encounter procedure Sylvia Lizama MD Work Phone: [facility] Comment on above: Mixed hyperlipidemia (Primary Dx); Essential hypertension; Body mass index (BMI) 40.0-44.9, adult (HCC); Non-rheumatic tricuspid valve insufficiency; CHRISTIANA on CPAP; B-cell lymphoma, unspecified B-cell lymphoma type, unspecified body region (HCC); 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); Hypothyroidism, unspecified type; Spinal stenosis, lumbar region, with neurogenic claudication; History of DVT (deep vein thrombosis); Bilateral carotid artery stenosis; Left arm pain; Neck pain; DDD (degenerative disc disease), lumbar Start: 03-26-2023 Telephone encounter Elissa yañez APRN.CRISIS COUNSELOR Work Phone: [facility] Comment on above: Results (Shoulder xr ay results ) Start: 03-24-2023 End: 03-24-2023 Subsequent hospital visit by physician Xr [facility] [place] Work Phone: Radiology Comment on above: Acute pain of left s houlder [M25.512] Start: 03-24-2023 End: 03-24-2023 Patient encounter procedure Elissa Felipe APRN.CRISIS COUNSELOR Work Phone: [facility] Comment on above: Acute pain of left s houlder (Primary Dx); Muscle tension pain Start: 02-24-2023 End: 02-24-2023 ambulatory Treatment Rm 13 [facility] Work Phone: Hematology/Oncology Comment on above: 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) Start: 02-21-2023 Telephone encounter Sylvia Lizama MD Work Phone: [facility] [place] Comment on above: Medication Question Start: 02-21-2023 End: 02-21-2023 Patient encounter procedure Franklyn Juares MD Work Phone: Ophthalmology Comment on above: Combined forms of ag e-related cataract of right eye (Primary Dx); Combined forms of age-related cataract of left eye; Ocular hypertension, bilateral; Essential hypertension Start: 01-01-2023 Telephone encounter Chinyere clifford RN Work Phone: Hematology/Oncology Comment on above: Care Coordination (C YCLE 1/DAY 1 POST TREATMENT CALL ) Start: 12-30-2022 End: 12-30-2022 ambulatory Treatment Rm 12 [facility] Work Phone: Hematology/Oncology Comment on above: 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) Start: 12-25-2022 ambulatory Sylvia Lizama MD Work Phone: [facility] [place] Comment on above: Derm Problem Start: 12-25-2022 Telephone encounter Sylvia Lizama MD Work Phone: [facility] [place] Comment on above: Results Start: 12-25-2022 End: 12-25-2022 Office outpatient visit 15 minutes Gini Ayala APRN.CNP Work Phone: [facility] [place] Comment on above: Acute generalized ex anthematous pustulosis due to drug (Primary Dx) Start: 12-17-2022 End: 12-17-2022 ambulatory Anca Almonte MD Work Phone: Hematology/Oncology Comment on above: 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); 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) Start: 12-17-2022 End: 12-17-2022 Patient encounter procedure Anca Almonte MD Work Phone: [facility] Start: 12-17-2022 Telephone encounter Anca dominguez MD Work Phone: Hematology/Oncology Comment on above: AVS 12/17/22 Start: 12-12-2022 Chart abstracting [facility] Work Phone: Neurology Comment on above: HSAT Check In (Adult ) Start: 12-09-2022 End: 12-09-2022 Patient encounter procedure Sylvia Lizama MD Work Phone: [facility] [place] Comment on above: Essential hypertensi on Start: 12-09-2022 End: 12-09-2022 Subsequent hospital visit by physician Ct Prep [facility] Cat Scan Comment on above: 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] Start: 11-27-2022 End: 11-27-2022 Patient encounter procedure Sylvia Lizama MD Work Phone: [facility] Comment on above: Essential tremor (Pr imary Dx); Chronic migraine without aura, with intractable migraine, so stated, with status migrainosus; Intractable chronic migraine without aura and without status migrainosus; Essential hypertension; Mixed hyperlipidemia; Gastroesophageal reflux disease, unspecified whether esophagitis present; Chronic kidney disease, unspecified CKD stage; Hypothyroidism, unspecified type; B-cell lymphoma, unspecified B-cell lymphoma type, unspecified body region (HCC); 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); Lymphadenopathy, generalized; CHRISTIANA (obstructive sleep apnea); Abnormal urine odor Start: 11-25-2022 End: 11-25-2022 Patient encounter procedure Anca Almonte MD Work Phone: [facility] [place] Start: 11-25-2022 End: 11-25-2022 ambulatory Lab/Port [facility] Work Phone: Hematology/Oncology Comment on above: 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); Thrombocytopenia, 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); Thrombocytopenia, secondary; Chronic kidney disease, unspecified CKD stage Start: 11-21-2022 Telephone encounter Enid LOERA Hematology/Oncology Comment on above: Social Work Services Start: 11-18-2022 Refill Mercy Norberto clayton PA-C Work Phone: [facility] [place] Comment on above: Refill Request Start: 11-12-2022 Telephone encounter Anca dominguez MD Work Phone: Hematology/Oncology Comment on above: Patient Question (Sy mptoms) Start: 11-07-2022 End: 11-07-2022 Patient encounter procedure Mercy Norberto Lemus PA-C Work Phone: [facility] [place] Comment on above: Essential hypertensi on (Primary Dx); SOB (shortness of breath); B-cell lymphoma, unspecified B-cell lymphoma type, unspecified body region (HCC); Chronic respiratory failure with hypoxia (HCC); Intermittent lightheadedness Start: 11-04-2022 Telephone encounter Sylvia Lizama MD Work Phone: [facility] [place] Comment on above: Elevated BP Start: 10-30-2022 End: 10-30-2022 ambulatory Treatment Rm 11 [facility] Work Phone: Hematology/Oncology Comment on above: 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) Start: 10-28-2022 End: 10-28-2022 Patient encounter procedure Brendon Coppola APRN.CRISIS COUNSELOR Work Phone: [facility] Start: 10-28-2022 End: 10-28-2022 ambulatory Lab/Port [facility] Work Phone: Hematology/Oncology Comment on above: 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); Thrombocytopenia, 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); Thrombocytopenia, secondary Start: 10-11-2022 ambulatory Shawna Pederson RN Work Phone: Orthopaedic Physician Assistant Management Comment on above: cdm (enrollment) Start: 10-04-2022 Telephone encounter Shannon Hui RN He matology/Oncology Comment on above: 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 ) Start: 10-03-2022 End: 10-03-2022 ambulatory Injection [facility] Work Phone: Hematology/Oncology Comment on above: 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) Start: 10-02-2022 End: 10-02-2022 ambulatory Treatment Rm 7 [facility] Work Phone: Hematology/Oncology Comment on above: 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) Start: 10-01-2022 Chart abstracting Edyta Whelan RN Hematology/Oncology Comment on above: Consent [id number] - Non-I nterventional Start: 10-01-2022 Telephone encounter Melba Escudero MD Work Phone: Hematology/Oncology Comment on above: Patient Update Appointment Start: 10-01-2022 End: 10-01-2022 ambulatory Treatment Rm 1 [facility] Work Phone: Hematology/Oncology Comment on above: 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) Start: 09-24-2022 End: 09-24-2022 ambulatory Lab/Port [facility] Work Phone: Hematology/Oncology Comment on above: 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) Start: 09-24-2022 End: 09-24-2022 Subsequent hospital visit by physician Ct Prep [facility] Cat Scan Comment on above: 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] Start: 09-20-2022 Orders Only César Reynolds Work Phone: Hematology/Oncology Comment on above: 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) Start: 09-03-2022 End: 09-03-2022 ambulatory Treatment Rm 9 [facility] Work Phone: Hematology/Oncology Comment on above: 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) Start: 09-02-2022 End: 09-02-2022 ambulatory Treatment Rm 1 [facility] Work Phone: Hematology/Oncology Comment on above: 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) Start: 08-30-2022 End: 08-30-2022 ambulatory Melba Escudero MD Work Phone: Hematology/Oncology Comment on above: 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 Cathryn Lizama Work Phone: [facility] Start: 08-04-2022 Non-patient / Non-visit Dr. Cathryn Lizama Work Phone: [facility] Start: 08-03-2022 Non-patient / Non-visit Dr. Cathryn Lizama Work Phone: [facility] Start: 08-02-2022 Non-patient / Non-visit Dr. Cathryn Lizama Work Phone: [facility] Start: 08-01-2022 Telephone encounter Celeste [facility] Comment on above: Appointment Start: 08-01-2022 Non-patient / Non-visit Dr. Cathryn Lizama Work Phone: [facility] Start: 07-31-2022 Telephone encounter Melba Escudero MD Work Phone: Hematology/Oncology Comment on above: Patient Update Start: 07-31-2022 Non-patient / Non-visit Dr. Cathryn Lizama Work Phone: [facility] Start: 07-31-2022 Non-patient / Non-visit Dr. Cathryn Lizama Work Phone: [facility] Start: 07-30-2022 Telephone encounter Chinyere clifford RN Work Phone: Hematology/Oncology Comment on above: Care Coordination (A dmitted to [facility]) Start: 07-30-2022 End: 08-04-2022 Evaluation and management of inpatient Dr. 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); Thrombocytopenia, secondary Start: 07-15-2022 Social Work [place] LOERA matology/Oncology Start: 07-08-2022 Telephone encounter Chinyere clifford RN Work Phone: Hematology/Oncology Comment on above: Care Coordination (T oxicity Check) Start: 07-01-2022 Telephone encounter Chinyere clifford RN Work Phone: Hematology/Oncology Comment on above: Care Coordination (C YCLE 1/DAY 1 POST TREATMENT CALL ) Start: 06-28-2022 Telephone encounter Chinyere clifford RN Work Phone: Hematology/Oncology Comment on above: Erroneous encounter- disregard Start: 06-28-2022 End: 06-28-2022 ambulatory Treatment Rm 8 [facility] Work Phone: Hematology/Oncology Comment on above: 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) Start: 06-27-2022 Refill Melba Escudero MD Work Phone: Hematology/Oncology Comment on above: Refill Request Patient Update (/) Start: 06-19-2022 End: 06-19-2022 ambulatory César Quintero DO Work Phone: Hematology/Oncology Comment on above: 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) Start: 06-19-2022 End: 06-19-2022 Patient encounter procedure César Quintero DO Work Phone: [facility] Start: 06-11-2022 End: 06-11-2022 Nursing evaluation of patient and report Mi Nurse Work Phone: [facility] [place] Comment on above: Need for influenza v accination (Primary Dx); Need for vaccination Start: 06-10-2022 End: 06-10-2022 Patient encounter procedure Tima Peterson PA-C Work Phone: General Surgery Comment on above: Allergic contact noel matitis due to adhesives (Primary Dx); Port-A-Cath in place Start: 06-10-2022 Telephone encounter Zeny wagner MD Work Phone: General Surgery Comment on above: Patient Question Start: 06-05-2022 End: 06-05-2022 ambulatory ZENY CROWDER Facility:[facility] Start: 05-31-2022 End: 05-31-2022 Refill Brendon Coppola APRN.CNP Work Phone: Hematology/Oncology Comment on above: Refill Request Pre-operative examin ation (Primary Dx); 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); Bilateral carotid artery stenosis; Essential hypertension; History of DVT (deep vein thrombosis); History of lumbar fusion; Mixed hyperlipidemia; Hypothyroidism, unspecified type; Intractable chronic migraine without aura and without status migrainosus; Non-rheumatic tricuspid valve insufficiency; Class 3 severe obesity due to excess calories with body mass index (BMI) of 40.0 to 44.9 in adult, unspecified whether serious comorbidity present (HCC); CHRISTIANA on CPAP; Gastroesophageal reflux disease, unspecified whether esophagitis present; Chronic kidney disease, unspecified CKD stage; Difficult airway for intubation, initial encounter Pre-op AC instructio ns Start: 05-31-2022 End: 05-31-2022 Preprocedural examination done Pacc [place] 1 Work Phone: Pre Anesthesia Start: 05-28-2022 End: 05-28-2022 Refill Melba Escudero MD Work Phone: Hematology/Oncology Comment on above: Refill Request Encounter for educat ion (Primary Dx); 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) Start: 05-26-2022 Refill Sylvia Lizama MD Work Phone: [facility] [place] Comment on above: Refill Request Start: 05-23-2022 Telephone encounter Sylvia Lizama MD Work Phone: [facility] [place] Comment on above: Patient Question Start: 05-22-2022 Telephone encounter Chinyere clifford RN Work Phone: Hematology/Oncology Comment on above: Care Coordination (I ntroduction) Start: 05-21-2022 Telephone encounter Melba Escudero MD Work Phone: Hematology/Oncology Comment on above: Appointment; Results Start: 05-15-2022 Telephone encounter Carmela dominguez PA-C Work Phone: [facility] Comment on above: Results Start: 05-13-2022 Telephone encounter Melba Escudero MD Work Phone: Hematology/Oncology Comment on above: Patient Question Start: 05-13-2022 End: 05-13-2022 Patient encounter procedure Helen CortezLakeshia BURCH Work Phone: [facility] Comment on above: Urinary frequency (P rimary Dx); Feared condition not demonstrated Start: 05-10-2022 End: 05-10-2022 Patient encounter procedure Zeny Crowder MD Work Phone: General Surgery Comment on above: Enlarged lymph nodes (Primary Dx); 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) Start: 05-07-2022 End: 05-07-2022 Patient encounter procedure Zeny Crowder MD Work Phone: General Surgery Comment on above: Enlarged lymph nodes (Primary Dx); 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) Start: 05-03-2022 Telephone encounter Melba Escudero MD Work Phone: Hematology/Oncology Comment on above: Bone Marrow Aspirate /Biopsy Start: 04-22-2022 End: 04-22-2022 Subsequent hospital visit by physician Xr [facility] [place] Work Phone: Radiology Comment on above: SOB (shortness of br eath) [R06.02] Start: 04-22-2022 End: 04-22-2022 Patient encounter procedure Sylvia Lizama MD Work Phone: [facility] [place] Comment on above: SOB (shortness of br eath) (Primary Dx); Fatigue, unspecified type; Bronchitis; Edema, unspecified type; Hypothyroidism, unspecified type; B-cell lymphoma, unspecified B-cell lymphoma type, unspecified body region (HCC); DDD (degenerative disc disease), lumbar; Essential hypertension Start: 04-19-2022 Telephone encounter Sylvia Lizama MD Work Phone: [facility] [place] Comment on above: Patient Update Start: 04-01-2022 ambulatory Sylvia Lizama MD Work Phone: [facility] [place] Comment on above: Medicine Edema Start: 03-04-2022 Refill Sylvia Lizama MD Work Phone: [facility] [place] Comment on above: Refill Request Start: 02-04-2022 Refill Sylvia Lizama MD Work Phone: [facility] Comment on above: Refill Request medications Start: 01-29-2022 End: 01-29-2022 ambulatory Melba Escudero MD Work Phone: Hematology/Oncology Comment on above: 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 Comment on above: Arrived Start: 03-21-2021 End: 03-21-2021 Subsequent hospital visit by physician Xr [facility] Work Phone: Radiology Comment on above: Chest pain, unspecif ied type [R07.9] Start: 02-01-2021 ambulatory Sylvia Lizama MD Work Phone: [facility] Comment on above: Dizziness Start: 01-12-2021 End: 01-12-2021 Subsequent hospital visit by physician Xr [facility] Work Phone: Radiology Comment on above: Chills [R68.83] Start: 12-06-2020 End: 12-06-2020 Subsequent hospital visit by physician Xr [facility] Work Phone: Radiology Comment on above: Infected sebaceous c yst of skin [L72.3, L08.9] Start: 09-13-2020 End: 09-13-2020 Emergency department patient visit Pavel Watts Work Phone: [facility] Emergency Dept Comment on above: Upper respiratory tr act infection, unspecified type (Primary Dx) Start: 09-06-2020 End: 09-06-2020 Emergency department patient visit Kaden Kessler Work Phone: [facility] Emergency Dept Comment on above: Acute UTI (Primary D x); Chills Start: 08-30-2020 End: 08-30-2020 Subsequent hospital visit by physician Hellen [facility] [place] Work Phone: Radiology Comment on above: Encounter by [facility] for suspected COVID-19 [Z20.828] Start: 08-30-2019 End: 08-30-2019 Subsequent hospital visit by physician Mu Schaffer MD Work Phone: [facility] MRI Comment on above: Arrived Start: 02-22-2018 End: 02-22-2018 Emergency department patient visit Jose Marcos Julien Facility:[facility] Start: 11-18-2017 End: 11-18-2017 Emergency department patient visit PAVEL ALCANTARA [facility] Procedures Date Procedure Procedure Detail Performing Clinician Start: 04-01-2025 CT angiography of he ad and neck Dr. Sylvia Lizama MD Work Phone: Start: 11-29-[address] Sylvia Lizama MD Work Phone: Start: 11-29-[address] Allen Lizama MD Work Phone: Start: 11-29-2024 Plain chest X-ray Dr. Victorino Lizama MD Work Phone: Start: 11-26-2024 MRI of brain without contrast Dr. Sylvia Lizama MD Work Phone: Start: 11-26-2024 X-ray of knee, four or more views Dr. Sylvia Lizama MD Work Phone: Start: 11-26-2024 X-ray of chest, PA a nd lateral views Dr. Sylvia Lizama MD Work Phone: Start: 11-26-[address] Allen Lizama MD Work Phone: Start: 11-26-2024 SARS-CoV-2, Influenz a & RSV (PCR) Dr. Sylvia Lizama MD Work Phone: Start: 11-26-2024 CT of head without contrast Dr. Sylvia Lizama MD Work Phone: Start: 11-06-2024 Plain chest X-ray Dr. Victorino Lizama MD Work Phone: Start: 11-01-2024 Radiologic exam ches t 2 views Elida Lozada PUBLIC POLICY PROFESSOR.CRISIS COUNSELOR Work Phone: Start: 11-01-2024 Urnls dip stick/tabl et rgnt auto w/o microscopy Elida Lozada PUBLIC POLICY PROFESSOR.CRISIS COUNSELOR Work Phone: Start: 08-12-2024 Mri brain brain stem w/o w/contrast material Missy Hirsch PA-C Work Phone: Start: 07-27-2024 Urnls dip stick/tabl et rgnt auto w/o microscopy Helen Bonilla PUBLIC POLICY PROFESSOR.CRISIS COUNSELOR Work Phone: Start: 05-11-2024 Urnls dip stick/tabl et rgnt auto w/o microscopy Darrian HOPKINS Work Phone: Start: 04-29-2024 Colonoscopy flx dx w/collj spec when pfrmd Zeny Crowder MD Work Phone: Start: 04-15-2024 Us lmtd joint/oth nonvasc xtr strux r-t w/img Sylvia Lizama MD Work Phone: Start: 03-15-2024 STREP A MOLECULAR (POC) Gini Ayala PUBLIC POLICY PROFESSOR.CRISIS COUNSELOR Work Phone: Start: 2023 Urnls dip stick/tabl et rgnt auto w/o microscopy Elida Lozada PUBLIC POLICY PROFESSOR.CRISIS COUNSELOR Work Phone: Start: 08-25-2023 Fundus photography w/interpretation & report Franklyn Juares MD Work Phone: Start: 07-08-2023 Screening digital br east tomosynthesis bi Prince Fang MD Work Phone: Start: 06-13-2023 Blood count complete auto&auto difrntl wbc Prince Fang MD Work Phone: Start: 06-06-2023 Ct abdomen & pelvis w/contrast material Melba Escudero MD Work Phone: Start: 06-06-2023 Ct thorax w/contrast material Melba Escudero MD Work Phone: Start: 06-06-2023 CREATININE BLD Prince kee MD Work Phone: Start: 04-03-2023 Radex spine cervical 4 or 5 views Sylvia Lizama MD Work Phone: Start: 03-24-2023 Radex shoulder compl ete minimum 2 views Elissa Felipe APRN.CRISIS COUNSELOR Work Phone: Start: 02-24-2023 CBC + DIFF César Topete ci DO Work Phone: Start: 02-21-2023 End: 02-21-2023 Fundus photography w/interpretation & report Franklyn Juares MD Work Phone: Start: 02-21-2023 IOL BIOMETRY W/ IOL CALC OU (BOTH EYES) Franklyn Juares MD Work Phone: Start: 02-21-2023 Computerized ophthal vesta imaging retina Franklyn Juares MD Work Phone: Start: 12-30-2022 Iaad ia hepatitis b surface antigen César Quintero DO Work Phone: Start: 12-30-2022 Blood count complete auto&auto difrntl wbc Anca Almonte MD Work Phone: Start: 12-09-2022 Ct abdomen & pelvis w/o contrast material Anca Almonte MD Work Phone: Start: 12-09-2022 Ct thorax w/o contra st material Anca Almonte MD Work Phone: Start: 11-25-2022 Blood count complete auto&auto difrntl wbc Anca Almonte MD Work Phone: Start: 10-28-2022 Blood count complete auto&auto difrntl wbc Brendon Coppola PUBLIC POLICY PROFESSOR.CRISIS COUNSELOR Work Phone: Start: 09-24-2022 Ct abdomen & pelvis w/contrast material Melba sEcudero MD Work Phone: Start: 09-24-2022 Ct thorax w/contrast material Melba Escudero MD Work Phone: Start: 09-24-2022 Blood count complete auto&auto difrntl wbc César Quintero DO Work Phone: Start: 08-21-2022 History of cholecystectomy History of cholecystectomy Sylvia Lizama MD Work Phone: Start: 08-02-2022 Total cholecystectom y and exploration of common bile duct Dr. Sylvia Lizama Work Phone: Start: 07-30-[address] phy guidance [address]. Sylvia Lizama Work Phone: Start: 07-30-2022 US scan of gallbladder Dr. Sylvia Lizama Work Phone: Start: 07-30-2022 Computed tomography of abdomen and pelvis with intravenous contrast Dr. Sylvia Lizama Work Phone: Start: 07-30-2022 Plain chest X-ray Dr. Victorino Lizama Work Phone: Start: 07-23-2022 Blood count complete auto&auto difrntl wbc Melba Escudero MD Work Phone: Start: 06-11-2022 INFLUENZA SEASONAL QUADRIVALENT HIGH DOSE AGE 65+ Sylvia Lizama MD Work Phone: Start: 05-13-2022 Urnls dip stick/tabl et rgnt auto w/o microscopy Elida Lozada PUBLIC POLICY PROFESSOR.CRISIS COUNSELOR Work Phone: Start: 05-10-2022 US LYMPH NODE BIOPSY AXILLA LEFT (POC) SURG USE ONLY Zeny Crowder MD Work Phone: Start: 05-10-2022 Level iv surg pathol ogy gross&microscopic exam Zeny Crowder MD Work Phone: Start: 04-22-2022 Radiologic exam ches t 2 views Sylvia Lizama MD Work Phone: Start: 12-12-2021 End: 12-12-2021 BP scrn no perf at interval Mu Schaffer MD Work Phone: Start: 12-12-2021 End: 12-12-2021 Calc BMI out nrm chato nof/u Mu Schaffer MD Work Phone: Start: 12-12-2021 End: 12-12-2021 Current tobacco non-user cad cap copd pv dm Mu Schaffer MD Work Phone: Start: 12-12-2021 End: 12-12-2021 Docrev cur meds by elig clin Mu Schaffer MD Work Phone: Start: 12-12-2021 End: 12-12-2021 Pain doc pos and plan Mu Schaffer MD Work Phone: Start: 12-12-2021 End: 12-12-2021 Patient encounter procedure Mu Schaffer MD Work Phone: Start: 03-21-2021 Radiologic exam ches t 2 views Sylvia Lizama MD Work Phone: Start: 01-12-2021 Radiologic exam ches t 2 views Gini Ayala PUBLIC POLICY PROFESSOR.CRISIS COUNSELOR Work Phone: Start: 12-06-2020 Radex spine lumbosac ral 2/3 views Zeny Augustin PUBLIC POLICY PROFESSOR.CRISIS COUNSELOR, DNP Work Phone: Start: 09-13-2020 Urnls dip stick/tabl et rgnt auto w/o microscopy Wilner Ferrer Work Phone: Start: 09-13-2020 Radiologic exam ches t single view Wilner Ferrer Work Phone: Start: 09-13-2020 Ecg routine ecg w/le ast 12 lds w/i&r Pavel Watts Work Phone: Start: 09-13-2020 Assay of lactate Michae coco Watts Work Phone: Start: 09-13-2020 Assay of troponin quantitative Pavel Watts Work Phone: Start: 09-13-2020 Basic metabolic pane l calcium total Pavel Watts Work Phone: Start: 09-13-2020 Blood count complete auto&auto difrntl wbc Wilner Ferrer Work Phone: Start: 09-13-2020 Natriuretic peptide Vesta cr Watts Work Phone: Start: 09-13-2020 RESPIRATORY PANEL, MOLECULAR, WITH COVID-19 Wilner Ferrer Work Phone: Start: 09-06-2020 Blood count complete auto&auto difrntl wbc Enrico Castorena Work Phone: Start: 09-06-2020 Comprehensive metabo lic panel Enrico Castorena Work Phone: Start: 09-06-2020 Urnls dip stick/tabl et rgnt auto w/o microscopy Enrico Castorena Work Phone: Start: 09-06-2020 Radiologic exam ches t single view Enrico Cisnerosbenjimelanie Work Phone: Start: 08-30-2020 Radiologic exam ches t 2 views Gini Ayala APRN.CRISIS COUNSELOR Work Phone: Anaerobic microbial culture Dr. Sylvia Lizama Work Phone: History of cholecystectomy S/P laparoscopic cholecystectomy Dr. Sylvia Lizama Work Phone: Comment on above: 08/02/22- laparoscop ic subtotal Investigation of transfusion reaction Dr. Sylvia Lizama Work Phone: Microbial culture, routine Dr. Sylvia Lizama Work Phone: NEGATED: Highlighted rowStart: 12-12-2021 End: 12-12-2021 Documentation of current medications Roselia Tanner LPN Plan of Treatment Date Care Activity Detail Author Start: 03-14-2028 Diabetes Screening Diabetes Screening [facility] Start: 02-24-2028 Urine microalbumin profile [facility] Start: 11-12-2027 Diabetes Screening Diabetes Screening [facility] Start: 09-17-2027 Diabetes Screening Diabetes Screening [facility] Start: 08-27-2027 Diabetes Screening Diabetes Screening [facility] Start: 04-02-2027 Diabetes Screening Diabetes Screening [facility] Start: 03-15-2027 Diabetes Screening Diabetes Screening [facility] Start: 03-04-2027 Diabetes Screening Diabetes Screening [facility] Start: 01-06-2027 Diabetes Screening Diabetes Screening [facility] Start: 06-13-2026 Diabetes Screening Diabetes Screening [facility] Start: 03-01-2026 Medicare Annual Wellness Visit Medicare Annual Wellness Visit [facility] Start: 03-01-2026 RSV Vaccine (1 - 1-dose 75+ series) RSV Vaccine (1 - 1-dose 75+ series) [facility] Comment on above: Postponed from 2018 (Declined at t his time) Start: 03-01-2026 Shingrix Vaccine (1 of 2) Shingrix Vaccine (1 of 2) [facility] Comment on above: Postponed from 1962 (Declined at t his time) Start: 02-11-2026 DIABETES SCREEN DIABETES SCREEN [facility] Start: 02-11-2026 Diabetes Screening Diabetes Screening [facility] Start: 12-30-2025 DIABETES SCREEN DIABETES SCREEN [facility] Start: 11-25-2025 DIABETES SCREEN DIABETES SCREEN [facility] Start: 10-28-2025 DIABETES SCREEN DIABETES SCREEN [facility] Start: 09-24-2025 DIABETES SCREEN DIABETES SCREEN [facility] Start: 09-17-2025 Creatinine measurement Serum Creatinine [facility] Start: 09-03-2025 BP Controlled (<130/80) BP Controlled (<130/80) [facility] in Start: 09-01-2025 End: 09-01-2025 Patient encounter procedure 09/01/2025 10:20 AM EST Office Visit [facility] [address] [place] [address] Judith Pickard, PUBLIC POLICY PROFESSOR.CRISIS COUNSELOR [address] [place] [address] 6 month exam [facility] Comment on above: 6 month exam Start: 08-30-2025 DIABETES SCREEN DIABETES SCREEN [facility] Start: 08-27-2025 Creatinine measurement Serum Creatinine [facility] Start: 07-23-2025 DIABETES SCREEN DIABETES SCREEN [facility] Start: 07-12-2025 End: 07-12-2025 ambulatory [facility] Comment on above: CBC/CMP/LDH 3-4MO OV/EARLY LABS Start: 07-06-2025 Annual PCP Team Chronic Disease Visit Annual PCP Team Chronic Disease Visit [facility] Start: 07-06-2025 BP Controlled (<130/80) BP Controlled (<130/80) [facility] Start: 07-02-2025 BP Controlled (<130/80) BP Controlled (<130/80) [facility] in Start: 06-27-2025 DIABETES SCREEN DIABETES SCREEN [facility] Start: 06-19-2025 DIABETES SCREEN DIABETES SCREEN [facility] Start: 06-17-2025 BP Controlled (<130/80) BP Controlled (<130/80) [facility] in Start: 05-23-2025 Influenza vaccination [facility] Start: 05-18-2025 BP Controlled (<130/80) BP Controlled (<130/80) [facility] Start: 05-11-2025 BP Controlled (<130/80) BP Controlled (<130/80) [facility] in Start: 05-03-2025 BP Controlled (<130/80) BP Controlled (<130/80) [facility] in Start: 05-01-2025 DIABETES SCREEN DIABETES SCREEN [facility] Start: 04-02-2025 [facility] Start: 04-02-2025 Annual PCP Team Chronic Disease Visit Annual PCP Team Chronic Disease Visit [facility] Start: 04-02-2025 Creatinine measurement Serum Creatinine [facility] Start: 04-01-2025 MRI of brain without contrast Brain without Contrast [facility] Start: 04-01-2025 Verification routine [facility] Start: 04-01-2025 Admission procedure [facility] Start: 04-01-2025 Hospital admission, emergency, from emergency room, medical nature [facility] Start: 04-01-2025 Oxygen therapy [facility] Start: 04-01-2025 End: 04-01-2025 [facility] Start: 03-28-2025 End: 03-28-2025 Patient encounter procedure 03/28/2025 10:40 AM EDT Office Visit [facility] [address] [place] [address] Gini Ayala APRN.CRISIS COUNSELOR [address] [place] [address] 2 week BP check [facility] Comment on above: 2 week BP check Start: 03-22-2025 End: 03-22-2025 ambulatory 03/22/2025 10:00 AM EDT Visit (SP) Office Hematology/Oncology [address] [place] [address] Asad Deras [address] [place] [address] OV/ LAB & CT 03/14 * r/s from 03/21 Hematology/Oncology Comment on above: OV/ LAB & CT 03/14 * r/s from 03/21 Start: 03-21-2025 End: 03-21-2025 ambulatory 03/21/2025 10:00 AM EDT Visit (SP) Office Hematology/Oncology [address] [place] [address] Asad Deras [address] [place] [address] OV/ LAB & CT 03/14 * Hematology/Oncology Comment on above: OV/ LAB & CT 03/14 * Start: 03-15-2025 Annual PCP Team Chronic Disease Visit Annual PCP Team Chronic Disease Visit [facility] Start: 03-15-2025 BP Controlled (<130/80) BP Controlled (<130/80) [facility] in Start: 03-15-2025 End: 06-14-2025 CBC W Auto Differential panel - Blood COMPLETE BLOOD COUNT AND DIFFERENTIAL Lab Routine B-cell lymphoma, unspecified B-cell lymphoma type, unspecified body region (HCC) Expected: 03/15/2025, Expires: 06/14/2025 [facility] Work Phone: Comment on above: Expected: 03/15/2025, Expires: Start: 03-15-2025 End: 06-14-2025 Cobalamin (Vitamin B12) [Mass/volume] in Serum or Plasma VITAMIN B12 Lab Routine Neuropathy Expected: 03/15/2025, Expires: 06/14/2025 [facility] Comment on above: Expected: 03/15/2025, Expires: Start: 03-15-2025 End: 06-14-2025 Comprehensive metabolic 2000 panel - Serum or Plasma COMPREHENSIVE METABOLIC PANEL Lab Routine Chronic kidney disease, unspecified CKD stage Expected: 03/15/2025, Expires: 06/14/2025 [facility] Comment on above: Expected: 03/15/2025, Expires: Start: 03-15-2025 Creatinine measurement Serum Creatinine [facility] Start: 03-15-2025 End: 06-14-2025 Hemoglobin A1c in Blood HEMOGLOBIN A1C Lab Routine Neuropathy Initial Medicare annual wellness visit Screening for cholesterol level Screening for diabetes mellitus Cognitive changes Mixed hyperlipidemia B-cell lymphoma, unspecified B-cell lymphoma type, unspecified body region (HCC) Debility Chronic kidney disease, unspecified CKD stage Hypothyroidism, unspecified type Spinal stenosis, lumbar region, with neurogenic claudication Expected: 03/15/2025, Expires: 06/14/2025 [facility] Comment on above: Expected: 03/15/2025, Expires: Start: 03-15-2025 End: 06-14-2025 Iron and Iron binding capacity panel - Serum or Plasma IRON AND TIBC Lab Routine B-cell lymphoma, unspecified B-cell lymphoma type, unspecified body region (HCC) Expected: 03/15/2025, Expires: 06/14/2025 [facility] Comment on above: Expected: 03/15/2025, Expires: Start: 03-15-2025 End: 06-14-2025 Lactate dehydrogenase [Enzymatic activity/volume] in Serum or Plasma LACTATE DEHYDROGENASE Lab Routine B-cell lymphoma, unspecified B-cell lymphoma type, unspecified body region (HCC) Expected: 03/15/2025, Expires: 06/14/2025 [facility] Comment on above: Expected: 03/15/2025, Expires: Start: 03-15-2025 End: 06-14-2025 LIPID PANEL, NONFASTING LIPID PANEL, NONFASTING Lab Routine Screening for cholesterol level Expected: 03/15/2025, Expires: 06/14/2025 [facility] Comment on above: Expected: 03/15/2025, Expires: Start: 03-15-2025 End: 06-14-2025 Magnesium [Mass/volume] in Serum or Plasma MAGNESIUM Lab Routine Chronic kidney disease, unspecified CKD stage Expected: 03/15/2025, Expires: 06/14/2025 [facility] Comment on above: Expected: 03/15/2025, Expires: Start: 03-15-2025 End: 06-14-2025 Thyrotropin [Units/volume] in Serum or Plasma THYROID STIMULATING HORMONE Lab Routine Neuropathy Initial Medicare annual wellness visit Screening for cholesterol level Screening for diabetes mellitus Cognitive changes Mixed hyperlipidemia B-cell lymphoma, unspecified B-cell lymphoma type, unspecified body region (HCC) Debility Chronic kidney disease, unspecified CKD stage Hypothyroidism, unspecified type Spinal stenosis, lumbar region, with neurogenic claudication Expected: 03/15/2025, Expires: 06/14/2025 [facility] Comment on above: Expected: 03/15/2025, Expires: Start: 03-14-2025 End: 06-13-2025 Basic metabolic 2000 panel - Serum or Plasma BASIC METABOLIC PANEL Lab Routine Essential hypertension Expected: 03/14/2025, Expires: 06/13/2025 [facility] Work Phone: Comment on above: Expected: 03/14/2025, Expires: Start: 03-14-2025 End: 03-14-2025 Patient encounter procedure 03/14/2025 10:20 AM EDT Appointment Cat Scan [address] [place] [address] 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) [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] Cat Scan Comment on above: Follicular lymphoma grade I of lymph nod es of multiple sites (HCC) [C82.08] Start: 03-14-2025 End: 03-14-2025 ambulatory 03/14/2025 10:00 AM EDT Results Only [place] [place] [facility] [address] [place] [address] CBC/CMP/LDH * [facility] Comment on above: CBC/CMP/LDH * Start: 03-04-2025 Creatinine measurement Serum Creatinine [facility] Start: 03-01-2025 End: 03-01-2025 Patient encounter procedure 03/01/2025 11:20 AM EDT Office Visit [facility] [place] [address] [place] [address] Judith Pickard APRN.CRISIS COUNSELOR [address] [place] [address] Medicare Wellness [facility] Comment on above: Medicare Wellness Start: 02-09-2025 End: 02-09-2025 Patient encounter procedure 02/09/2025 10:30 AM EDT Office Visit [facility] Op[facility] [address] [place] [address] Franklyn Juares MD [address] [place] [address] cataracts Ophthalmology Comment on above: cataracts Start: 01-29-2025 DIABETES SCREEN DIABETES SCREEN [facility] Start: 01-20-2025 End: 01-20-2025 Patient encounter procedure 01/20/2025 10:00 AM EDT Office Visit Urology [address] [facility] [place] [address] Alysha Khanna MD [address] [place] [address] Urinary incontinence, unspecified type [R32] Urology Comment on above: Urinary incontinence, unspecified type [ R32] Start: 01-06-2025 Annual PCP Team Chronic Disease Visit Annual PCP Team Chronic Disease Visit [facility] Start: 01-06-2025 BP Controlled (<130/80) BP Controlled (<130/80) [facility] inic Start: 01-06-2025 Creatinine measurement Serum Creatinine [facility] Start: 01-06-2025 RSV Vaccine (1 - 1-dose 60+ series) RSV Vaccine (1 - 1-dose 60+ series) [facility] Comment on above: Postponed from 2003 (Declined at t his time) Start: 01-06-2025 RSV Vaccine (1 - 1-dose 75+ series) RSV Vaccine (1 - 1-dose 75+ series) [facility] Comment on above: Postponed from 2018 (Declined at t his time) Start: 12-28-2024 End: 12-28-2024 Patient encounter procedure 12/28/2024 4:00 PM EDT Office Visit [facility] [place] [address] [place] [address] Sylvia Lizama MD [address] [place] [address] D/C [address] [facility] 12/17/24 [facility] Comment on above: D/C from [facility] 12/17/24 Start: 12-23-2024 Creatinine measurement Serum Creatinine [facility] Start: 12-14-2024 End: 12-14-2024 Patient encounter procedure [facility] Comment on above: 6 month f/u Start: 12-10-2024 End: 12-10-2024 ambulatory 12/10/2024 9:00 AM EDT Visit (SP) Office Hematology/Oncology [address] [place] [address] César Quintero DO [address] [place] [address] OV/ LAB & CT C/A/P 11/12 * Hematology/Oncology Comment on above: OV/ LAB & CT C/A/P 11/12 * Start: 12-01-2024 Patient discharge [facility] Start: 11-29-2024 Following clinical pathway protocol [facility] Start: 11-27-2024 Admission procedure [facility] Start: 11-26-2024 [facility] Start: 11-26-2024 Following clinical pathway protocol [facility] Start: 11-26-2024 Ambulation without limitation [facility] Start: 11-26-2024 Assessment of risk of venous thromboembolism [facility] Start: 11-26-2024 Insertion of catheter into peripheral vein [facility] Start: 11-26-2024 Providing care according to standard [facility] Start: 11-26-2024 Referral to occupational therapist [facility] Start: 11-26-2024 Referral to service [facility] Start: 11-26-2024 [facility] Start: 11-26-2024 Hospital admission, emergency, from emergency room, medical nature [facility] Start: 11-26-2024 Verification routine [facility] Start: 11-26-2024 Admission procedure [facility] Start: 11-26-2024 [facility] Start: 11-26-2024 End: 11-26-2024 [facility] Start: 11-26-2024 Bacteria identified in Blood by Culture Blood Culture [facility] Start: 11-19-2024 End: 11-19-2024 ambulatory Hematology/Oncology Comment on above: OV/ CT C/A/P 11/12 * Start: 11-12-2024 End: 02-11-2025 Thyrotropin [Units/volume] in Serum or Plasma THYROID STIMULATING HORMONE Lab Routine Hypothyroidism due to acquired atrophy of thyroid Expected: 11/12/2024, Expires: 02/11/2025 [facility] Work Phone: Comment on above: Expected: 11/12/2024, Expires: Start: 11-12-2024 End: 11-12-2024 Patient encounter procedure Cat Scan Comment on above: Grade 2 follicular lymphoma of lymph nod es of multiple regions (HCC) [C82.18] [facility] ER 11/06/24 for B ronchitis and a Sinus Infection x3 Weeks. Pull charts for appointment. 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] Neurology Comment on above: Disorder of labyrinth, unspecified later ality [H81.90] Start: 10-18-2024 DIABETES SCREEN DIABETES SCREEN [facility] Start: 10-08-2024 End: 10-08-2024 ambulatory [facility] Comment on above: CBC* QWK RITUXAN/C4-4/MDC R* (SO)CBC* Start: 10-01-2024 End: 10-01-2024 [facility] Comment on above: CBC* QWK RITUXAN/C4-4/MDC R* QWK RITUXAN/C3-4/MDC R* (SO)CBC* Start: 09-24-2024 End: 09-24-2024 [facility] Comment on above: CBC* QWK RITUXAN/C3-4/MDC R* - this date/time per nurse QWK RITUXAN/C2-4/MDC R* - this date/time per nurse Start: 09-23-2024 Annual PCP Team Chronic Disease Visit Annual PCP Team Chronic Disease Visit [facility] Start: 09-22-2024 Advance Directive Discussion Advance Directive Discussion [facility] Start: 09-17-2024 End: 09-17-2024 [facility] Comment on above: CBC* QWK RITUXAN/C2-4/MDC R* CBC/CMP(S)/LDH(S)/UR IC ACID(S)* START QWK RITUXAN/C1 -4/MDCR* Start: 09-10-2024 End: 09-10-2024 [facility] Comment on above: CBC/CMP(s)/LDH(S)/Uric acid(S)* START QWK RITUXAN/C1 -4/MDCR* Start: 09-03-2024 End: 12-03-2024 Chronic hepatitis differentiation between hepatitis B and C virus panel - Serum or Plasma [facility] Comment on above: Expected: 09/03/2024, Expires: Start: 09-03-2024 End: 09-03-2024 ambulatory 09/03/2024 10:10 AM EST Visit (SP) Office Hematology/Oncology [address] [place] [address] César Quintero DO [address] [place] [address] 4 MO OV/LAB&CT 08/27* Hematology/Oncology Comment on above: 4 MO OV/LAB&CT 08/27* Start: 08-27-2024 End: 08-27-2024 Patient encounter procedure Cat Scan Comment on above: Grade 2 follicular lymphoma of lymph nod es of multiple regions (HCC) [C82.18] Start: 08-27-2024 End: 08-27-2024 ambulatory 08/27/2024 10:00 AM EST Results [facility] [address] [place] [address] CBC/CMP/LDH/URIC ACID [facility] Comment on above: CBC/CMP/LDH/URIC ACID Start: 08-12-2024 End: 08-12-2024 Patient encounter procedure 08/12/2024 12:30 PM EST Appointment Radiology [address] [place] [address] Worsening headaches [R51.9] Radiology Comment on above: Worsening headaches [R51.9] Start: 07-27-2024 End: 07-27-2024 Patient encounter procedure 07/27/2024 12:45 PM EST Office Visit Neurology [address] [place] [address] Missy Hirsch PA-C [address] [place] [address] Disorder of labyrinth, 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 Ophthalmology Comment on above: Cataracts/Ocular Hypertension. Start: 07-16-2024 End: 07-16-2024 Patient encounter procedure 07/16/2024 9:20 AM EDT Office Visit [facility] [place] [address] [place], [place] [address] Judith Pickard APRN.CRISIS COUNSELOR [address] [place], [place] [address] 2 week f/u [facility] Comment on above: 2 week f/u Start: 07-14-2024 End: 07-14-2024 Patient encounter procedure 07/14/2024 8:30 AM EDT Office Visit [facility] [address] [place] [address] Franklyn Juares MD [address] [place] [address] Cataracts/Ocular Hypertension. Ophthalmology Comment on above: Cataracts/Ocular Hypertension. 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]; Encounter for screening mammogram for malignant neoplasm of breast [Z12.31] Mammogram Comment on above: Grade 2 follicular lymphoma of lymph nod es of multiple regions (HCC) [C82.18]; Encounter for screening mammogram for malignant neoplasm of breast [Z12.31] Start: 07-08-2024 Annual PCP Team Chronic Disease Visit Annual PCP Team Chronic Disease Visit [facility] Start: 07-08-2024 Shingrix Vaccine (1 of 2) Shingrix Vaccine (1 of 2) [facility] Comment on above: Postponed from 1962 (Declined at t his time) Start: 07-02-2024 End: 07-02-2024 Patient encounter procedure 07/02/2024 11:40 AM EDT Office Visit [facility] [place] [address] [place] [address] Judith Pickard APRN.CRISIS COUNSELOR [address] [facility] [place] [place] [address] hearing noses/different than the ringing in the ears/top of head is [id number] phone encounter) Family [facility] Comment on above: hearing noses/different than the ringing in the ears/top of head is [id number] phone encounter) Start: 06-17-2024 End: 06-17-2024 Patient encounter procedure 06/17/2024 11:20 AM EDT Office Visit [facility] [place] [address] [place] [address] Judith Pickard PUBLIC POLICY PROFESSOR.CRISIS COUNSELOR [address] [facility] [address] Blood pressure follow up [facility] Comment on above: Blood pressure follow up Start: 06-13-2024 BP Controlled (<130/80) BP Controlled (<130/80) [facility] Start: 06-13-2024 Creatinine measurement Serum Creatinine [facility] Start: 06-13-2024 Serum Creatinine Serum Creatinine [facility] Start: 06-06-2024 Serum Creatinine Serum Creatinine [facility] Start: 05-23-2024 Influenza vaccination [facility] Start: 05-04-2024 End: 05-04-2024 ambulatory 05/04/2024 1:15 PM EDT OT/PT/Speech Visit [facility] [address] [place] [address] Yariel Bustillo, PT [address] [place] [address] BPPV (benign paroxysmal positional vertigo), unspecified laterality [H81.10] [facility] Comment on above: BPPV (benign paroxysmal positional verti go), unspecified laterality [H81.10] Start: 05-03-2024 End: 05-03-2024 Patient encounter procedure 05/03/2024 10:40 AM EDT Office Visit Family [facility] [address] [place], [place] [id number] Judith Pickard, PUBLIC POLICY PROFESSOR.CRISIS COUNSELOR [address] [place] [address] 4 week follow up [facility] Comment on above: 4 week follow up Start: 04-29-2024 End: 04-29-2024 Patient encounter procedure Ambulatory Surgery Start: 04-26-2024 End: 07-26-2024 Lactate dehydrogenase [Enzymatic activity/volume] in Serum or Plasma LACTATE DEHYDROGENASE Lab Routine 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) Expected: 04/26/2024, Expires: 07/26/2024 [facility] Comment on above: Expected: 04/26/2024, Expires: Start: 04-26-2024 End: 07-26-2024 Urate [Mass/volume] in Serum or Plasma URIC ACID Lab Routine 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) Expected: 04/26/2024, Expires: 07/26/2024 [facility] Comment on above: Expected: 04/26/2024, Expires: 4 Start: 04-17-2024 ANNUAL PCP TEAM CHRONIC DISEASE VISIT ANNUAL PCP TEAM CHRONIC DISEASE VISIT [facility] Start: 04-15-2024 End: 04-15-2024 Patient encounter procedure Cat Scan Comment on above: Dx: 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]; Enlarged lymph nodes [R59.9]; Abnormal CT of the abdomen Soft tissue mass [M7 9.89] Start: 04-08-2024 End: 07-08-2024 CREATININE BLD CREATININE BLD Lab STAT 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) Enlarged lymph nodes Abnormal CT of the abdomen Expected: 04/08/2024 (Approximate), Expires: 07/08/2024 [facility] Comment on above: Expected: 04/08/2024 (Approximate), Expi res: 07/08/2024 Start: 04-03-2024 ANNUAL PCP TEAM CHRONIC DISEASE VISIT ANNUAL PCP TEAM CHRONIC DISEASE VISIT [facility] Start: 04-03-2024 BP CONTROLLED (<130/80) BP CONTROLLED (<130/80) [facility] in Start: 04-02-2024 End: 04-02-2024 ambulatory 04/02/2024 3:15 PM EDT Results Only [facility] [address] [place] [address] Essential hypertension; 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); Enlarged lymph nodes; Abnormal CT of the abdomen; Hypertensive urgency [facility] Comment on above: Essential hypertension; 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); Enlarged lymph nodes; Abnormal CT of the abdomen; Hypertensive urgency Start: 04-02-2024 End: 04-02-2024 Patient encounter procedure 04/02/2024 2:20 PM EDT Office Visit [facility] [address] [place] [address] Sylvia Lizama MD [address] [place] [address] [facility] Follow Up [facility] Comment on above: [facility] Hospital Follow Up Start: 03-31-2024 End: 03-31-2024 ambulatory 03/31/2024 1:00 PM EDT Visit (SP) Office [facility] [address] [place] [address] Shiv Shea MD [address] [place] [address] Urinary incontinence without sensory awareness [N39.42] [facility] Comment on above: Urinary incontinence without sensory kareem reness [N39.42] Start: 03-29-2024 End: 03-29-2024 Patient encounter procedure 03/29/2024 2:15 PM EDT Office Visit General Surgery [address] [place] [address] Zeny Crowder MD [address] [place] [address] Diarrhea, unspecified type [R19.7] General Surgery Comment on above: Diarrhea, unspecified type [R19.7] Start: 03-24-2024 ANNUAL PCP TEAM CHRONIC DISEASE VISIT ANNUAL PCP TEAM CHRONIC DISEASE VISIT [facility] Start: 03-24-2024 BP CONTROLLED (<130/80) BP CONTROLLED (<130/80) [facility] Start: 03-21-2024 Influenza vaccination Influenza Vaccine (#1) [facility] Comment on above: Postponed from 05/23/2023 (Declined at t his time) Start: 03-18-2024 End: 03-18-2024 Patient encounter procedure 03/18/2024 11:00 AM EDT Office Visit [facility] [address] [facility] [place] [address] Judith Pickard APRN.DEVELOPMENTAL SERVICES WORKER [address] [place] [address] 6 week medication f/u [facility] Comment on above: 6 week medication f/u Start: 03-15-2024 End: 06-14-2024 C reactive protein [Mass/volume] in Serum or Plasma [facility] Comment on above: Expected: 03/15/2024, Expires: Start: 03-15-2024 End: 06-14-2024 Calprotectin [Mass/mass] in Stool CALPROTECTIN,FECAL Lab Routine Diarrhea, unspecified type Expected: 03/15/2024, Expires: 06/14/2024 [facility] Comment on above: Expected: 03/15/2024, Expires: Start: 03-15-2024 End: 06-14-2024 Clostridioides difficile toxin genes [Presence] in Stool by ANALI with probe detection C. DIFFICILE PCR Lab Routine Diarrhea, unspecified type Expected: 03/15/2024, Expires: 06/14/2024 [facility] Comment on above: Expected: 03/15/2024, Expires: Start: 03-15-2024 End: 06-14-2024 Comprehensive metabolic 2000 panel - Serum or Plasma [facility] Work Phone: Comment on above: Expected: 03/15/2024, Expires: Start: 03-15-2024 End: 03-15-2025 ENTERIC BACTERIAL PANEL BY PCR ENTERIC BACTERIAL PANEL BY PCR Lab Routine Diarrhea, unspecified type Expected: 03/15/2024, Expires: 03/15/2025 [facility] Comment on above: Expected: 03/15/2024, Expires: Start: 03-15-2024 End: 06-14-2024 FECAL LACTOFERRIN/LEUKOCYTES FECAL LACTOFERRIN/LEUKOCYTES Lab Routine Diarrhea, unspecified type Expected: 03/15/2024, Expires: 06/14/2024 [facility] Comment on above: Expected: 03/15/2024, Expires: Start: 03-15-2024 End: 06-14-2024 Giardia lamblia+Cryptosporidium sp Ag [Presence] in Stool by Immunoassay CRYPTOSPORIDIUM AND GIARDIA ANTIGENS BY EIA Microbiology Routine Diarrhea, unspecified type Expected: 03/15/2024, Expires: 06/14/2024 [facility] Comment on above: Expected: 03/15/2024, Expires: Start: 03-15-2024 End: 03-15-2025 Norovirus Ag [Presence] in Stool NOROVIRUS GROUP 1 AND 2 Lab Routine Diarrhea, unspecified type Expected: 03/15/2024, Expires: 03/15/2025 [facility] Comment on above: Expected: 03/15/2024, Expires: Start: 03-15-2024 End: 06-14-2024 Rotavirus Ag [Presence] in Stool by Immunoassay ROTAVIRUS AG BY EIA Microbiology Routine Diarrhea, unspecified type Expected: 03/15/2024, Expires: 06/14/2024 [facility] Comment on above: Expected: 03/15/2024, Expires: Start: 03-15-2024 End: 06-14-2024 Thyrotropin [Units/volume] in Serum or Plasma [facility] Comment on above: Expected: 03/15/2024, Expires: Start: 03-15-2024 End: 06-14-2024 Thyroxine (T4) free [Mass/volume] in Serum or Plasma [facility] Comment on above: Expected: 03/15/2024, Expires: Start: 03-04-2024 End: 06-03-2024 Bacteria identified in Urine by Culture [facility] Work Phone: Comment on above: Expected: 03/04/2024, Expires: Start: 03-04-2024 End: 06-03-2024 Cobalamin (Vitamin B12) [Mass/volume] in Serum or Plasma [facility] Comment on above: Expected: 03/04/2024, Expires: Start: 03-04-2024 End: 06-03-2024 Comprehensive metabolic 2000 panel - Serum or Plasma [facility] Comment on above: Expected: 03/04/2024, Expires: Start: 03-04-2024 End: 06-03-2024 Magnesium [Mass/volume] in Serum or Plasma [facility] Comment on above: Expected: 03/04/2024, Expires: Start: 03-04-2024 End: 03-04-2024 Patient encounter procedure 03/04/2024 11:20 AM EDT Office Visit [facility] [address] [place], [place] [id number] Judith Pickard APRN.DEVELOPMENTAL SERVICES WORKER [address] [place] [address] Diarrhea. See triage. [facility] Comment on above: Diarrhea. See triage. Start: 03-02-2024 End: 03-02-2024 Patient encounter procedure 03/02/2024 9:30 AM EDT Office Visit [facility] [address] [place] [address] Franklyn Juares MD [address] [place] [id number] [facility] Comment on above: Cataracts Start: 02-19-2024 End: 02-19-2024 Patient encounter procedure 02/19/2024 1:30 PM EDT Office Visit OB/Gynecology [address] [place] [address] Shaila Rincon APRN.CRISIS COUNSELOR [address] [place] [address] incontinence OB/Gynecology Comment on above: incontinence Start: 02-12-2024 ANNUAL PCP TEAM CHRONIC DISEASE VISIT ANNUAL PCP TEAM CHRONIC DISEASE VISIT [facility] Start: 02-12-2024 SERUM CREATININE SERUM CREATININE [facility] Start: 02-05-2024 End: 02-05-2024 Patient encounter procedure 02/05/2024 11:00 AM EDT Office Visit [facility] [address] [place] [address] Judith Pickard APRN.DEVELOPMENTAL SERVICES WORKER [address] [place] [address] 4 week follow up [facility] Comment on above: 4 week follow up Start: 01-07-2024 End: 04-07-2024 CBC W Auto Differential panel - Blood COMPLETE BLOOD COUNT AND DIFFERENTIAL Lab Routine Essential hypertension Expected: 01/07/2024, Expires: 04/07/2024 [facility] Work Phone: Comment on above: Expected: 01/07/2024, Expires: 4 Start: 01-07-2024 End: 04-07-2024 T4/FTI/T4U [facility] Work Phone: Comment on above: Expected: 01/07/2024, Expires: 4 Start: 01-07-2024 End: 04-07-2024 Thyrotropin [Units/volume] in Serum or Plasma [facility] Work Phone: Comment on above: Expected: 01/07/2024, Expires: Start: 01-02-2024 End: 04-02-2024 CBC W Auto Differential panel - Blood COMPLETE BLOOD COUNT AND DIFFERENTIAL Lab STAT 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) Expected: 01/02/2024, Expires: 04/02/2024 [facility] Work Phone: Comment on above: Expected: 01/02/2024, Expires: 4 Start: 01-02-2024 End: 04-02-2024 Comprehensive metabolic 2000 panel - Serum or Plasma COMPREHENSIVE METABOLIC PANEL Lab STAT 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) Expected: 01/02/2024, Expires: 04/02/2024 [facility] Work Phone: Comment on above: Expected: 01/02/2024, Expires: Start: 01-02-2024 End: 04-02-2024 Lactate dehydrogenase [Enzymatic activity/volume] in Serum or Plasma LACTATE DEHYDROGENASE Lab STAT 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) Expected: 01/02/2024, Expires: 04/02/2024 [facility] Work Phone: Comment on above: Expected: 01/02/2024, Expires: 4 Start: 12-31-2023 SERUM CREATININE SERUM CREATININE [facility] Start: 12-26-2023 ANNUAL PCP TEAM CHRONIC DISEASE VISIT ANNUAL PCP TEAM CHRONIC DISEASE VISIT [facility] Start: 12-18-2023 BP CONTROLLED (<130/80) BP CONTROLLED (<130/80) [facility] Start: 12-10-2023 ANNUAL PCP TEAM CHRONIC DISEASE VISIT ANNUAL PCP TEAM CHRONIC DISEASE VISIT [facility] Start: 11-28-2023 ANNUAL PCP TEAM CHRONIC DISEASE VISIT ANNUAL PCP TEAM CHRONIC DISEASE VISIT [facility] Start: 11-26-2023 BP CONTROLLED (<130/80) BP CONTROLLED (<130/80) [facility] Start: 11-26-2023 SERUM CREATININE SERUM CREATININE [facility] Start: 11-07-2023 ANNUAL PCP TEAM CHRONIC DISEASE VISIT ANNUAL PCP TEAM CHRONIC DISEASE VISIT [facility] Start: 10-28-2023 SERUM CREATININE SERUM CREATININE [facility] Start: 09-24-2023 SERUM CREATININE SERUM CREATININE [facility] Start: 09-22-2023 Advance Directive Discussion Advance Directive Discussion [facility] Start: 08-30-2023 SERUM CREATININE SERUM CREATININE [facility] Start: 07-23-2023 BP CONTROLLED (<130/80) BP CONTROLLED (<130/80) [facility] Start: 07-23-2023 SERUM CREATININE SERUM CREATININE [facility] Start: 07-08-2023 RSV Vaccine (1 - 1-dose 60+ series) RSV Vaccine (1 - 1-dose 60+ series) [facility] Comment on above: Postponed from 2003 (Declined at t his time) Start: 06-27-2023 SERUM CREATININE SERUM CREATININE [facility] Start: 06-19-2023 BP CONTROLLED (<130/80) BP CONTROLLED (<130/80) [facility] Start: 06-19-2023 End: 08-19-2023 CBC W Auto Differential panel - Blood CBC + DIFF Lab Routine 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) Expected: 06/19/2023, Expires: 08/19/2023 [facility] Work Phone: Comment on above: Expected: 06/19/2023, Expires: 3 Start: 06-19-2023 End: 08-19-2023 Comprehensive metabolic 2000 panel - Serum or Plasma COMP METABOLIC PANEL Lab Routine 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) Expected: 06/19/2023, Expires: 08/19/2023 [facility] Work Phone: Comment on above: Expected: 06/19/2023, Expires: 3 Start: 06-19-2023 End: 01-16-2024 Ct abdomen & pelvis w/o contrast material CT ABD/PEL WO IVCON Radiology Routine 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) Expected: 06/19/2023, Expires: 01/16/2024 [facility] Work Phone: Comment on above: Expected: 06/19/2023, Expires: 4 Start: 06-19-2023 End: 01-16-2024 Ct thorax w/o contrast material CT CHEST WO IVCON Radiology Routine 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) Expected: 06/19/2023, Expires: 01/16/2024 [facility] Work Phone: Comment on above: Expected: 06/19/2023, Expires: 4 Start: 06-19-2023 SERUM CREATININE SERUM CREATININE [facility] Start: 05-31-2023 BP CONTROLLED (<130/80) BP CONTROLLED (<130/80) [facility] Start: 05-23-2023 Influenza vaccination [facility] Start: 05-22-2023 BP CONTROLLED (<130/80) BP CONTROLLED (<130/80) [facility] Start: 05-07-2023 BP CONTROLLED (<130/80) BP CONTROLLED (<130/80) [facility] Start: 05-04-2023 End: 07-04-2023 Lipid 1996 panel - Serum or Plasma LIPID PANEL BASIC Lab Routine Mixed hyperlipidemia Expected: 05/04/2023, Expires: 07/04/2023 [facility] Work Phone: Comment on above: Expected: 05/04/2023, Expires: 3 Start: 05-01-2023 SERUM CREATININE SERUM CREATININE [facility] Start: 04-22-2023 ANNUAL PCP TEAM CHRONIC DISEASE VISIT ANNUAL PCP TEAM CHRONIC DISEASE VISIT [facility] Start: 01-29-2023 BP CONTROLLED (<130/80) BP CONTROLLED (<130/80) [facility] Start: 12-02-2022 End: 12-25-2023 Ct abdomen & pelvis w/o contrast material CT ABD/PEL WO IVCON Radiology Routine 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) Expected: 12/02/2022, Expires: 12/25/2023 [facility] Work Phone: Comment on above: Expected: 12/02/2022, Expires: 4 Start: 12-02-2022 End: 12-25-2023 Ct thorax w/o contrast material CT CHEST WO IVCON Radiology Routine 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) Expected: 12/02/2022, Expires: 12/25/2023 [facility] Work Phone: Comment on above: Expected: 12/02/2022, Expires: 4 Start: 11-27-2022 End: 01-27-2023 Bacteria identified in Urine by Culture [facility] Work Phone: Comment on above: Expected: 11/27/2022, Expires: 3 Start: 11-27-2022 End: 01-27-2023 Urinalysis complete panel - Urine [facility] Work Phone: Comment on above: Expected: 11/27/2022, Expires: 3 Start: 10-16-2022 ANNUAL PCP TEAM CHRONIC DISEASE VISIT ANNUAL PCP TEAM CHRONIC DISEASE VISIT [facility] Start: 09-22-2022 ADVANCE DIRECTIVE DISCUSSION ADVANCE DIRECTIVE DISCUSSION [facility] Start: 08-04-2022 Patient discharge [facility] Work Phone: Start: 08-02-2022 Incentive spirometry [facility] Work Phone: Start: 08-02-2022 [facility] Work Phone: Start: 08-02-2022 Following clinical pathway protocol [facility] Work Phone: Start: 08-02-2022 Maintenance of drainage tube [facility] Work Phone: Start: 08-01-2022 End: 10-01-2022 SARS-CoV-2 (COVID-19) RNA [Presence] in Respiratory specimen by ANALI with probe detection PRE-PROCEDURE & PRE-OPERATIVE COVID Microbiology Routine Encounter for prophylactic measures, unspecified Expected: 08/01/2022, Expires: 10/01/2022 [facility] Work Phone: Comment on above: Expected: 08/01/2022, Expires: 3 Start: 08-01-2022 Admission procedure [facility] Work Phone: Start: 07-30-2022 Application of intermittent pneumatic compression device [facility] Work Phone: Start: 07-30-2022 Assessment of risk of venous thromboembolism [facility] Work Phone: Start: 07-30-2022 Insertion of catheter into peripheral vein [facility] Work Phone: Start: 07-30-2022 Providing care according to standard [facility] Work Phone: Start: 07-30-2022 Provision of activity privileges [facility] Work Phone: Start: 07-30-2022 Referral to general surgeon [facility] Work Phone: Start: 07-30-2022 Referral to occupational therapist [facility] Work Phone: Start: 07-30-2022 Referral to service [facility] Work Phone: Start: 07-30-2022 [facility] Work Phone: Start: 07-30-2022 Referral to occupational therapist [facility] Work Phone: Start: 07-30-2022 Referral to service [facility] Work Phone: Start: 07-30-2022 Catheterization of vein [facility] Work Phone: Start: 07-30-2022 Vital signs measurements [facility] Work Phone: Start: 07-30-2022 End: 07-30-2022 Venous catheter care management [facility] Work Phone: Start: 05-23-2022 Influenza vaccination [facility] Start: 05-01-2022 End: 02-28-2023 Ct abdomen & pelvis w/contrast material CT ABD/PEL W IVCON Radiology Routine 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) Expected: 05/01/2022, Expires: 02/28/2023 [facility] Work Phone: Comment on above: Expected: 05/01/2022, Expires: Start: 05-01-2022 End: 02-28-2023 Ct thorax w/contrast material CT CHEST W IVCON Radiology Routine 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) Expected: 05/01/2022, Expires: 02/28/2023 [facility] Work Phone: Comment on above: Expected: 05/01/2022, Expires: 3 Start: 04-22-2022 End: 06-22-2022 Basic metabolic 2000 panel - Serum or Plasma [facility] Work Phone: Comment on above: Expected: 04/22/2022, Expires: 2 Start: 04-22-2022 End: 06-22-2022 CBC W Auto Differential panel - Blood [facility] Work Phone: Comment on above: Expected: 04/22/2022, Expires: 2 Start: 04-22-2022 End: 06-22-2022 Natriuretic peptide.B prohormone N-Terminal [Mass/volume] in Serum or Plasma [facility] Work Phone: Comment on above: Expected: 04/22/2022, Expires: 2 Start: 04-22-2022 End: 06-22-2022 Thyrotropin [Units/volume] in Serum or Plasma [facility] Work Phone: Comment on above: Expected: 04/22/2022, Expires: 2 Start: 12-12-2021 End: 12-12-2021 Patient encounter procedure Appointment [facility] Work Phone: Start: 12-12-2021 End: 12-12-2021 Chiropractic consultation Pain Management consultation Non Specified [facility] Work Phone: Start: 09-22-2021 ADVANCE DIRECTIVE DISCUSSION ADVANCE DIRECTIVE DISCUSSION [facility] Start: 09-13-2021 Creatinine measurement Creatinine monitoring [employer] [place] Start: 09-13-2021 Potassium monitoring Potassium monitoring [facility] [place] [place] Start: 05-23-2021 Influenza vaccination Flu vaccine (#1) [facility] Work Phone: Start: 05-23-2020 Influenza vaccination Flu vaccine (#1) [place], [place] Start: 08-10-2019 Creatinine measurement Creatinine monitoring [place], [place] Start: 08-10-2019 Creatinine monitoring Creatinine monitoring [facility] Work Phone: Start: 08-10-2019 Potassium monitoring Potassium monitoring [facility] Work Phone: Start: 05-23-2019 Influenza vaccination Flu vaccine (#1) [facility] Work Phone: Start: 03-14-2019 Annual Wellness Visit (AWV) Annual Wellness Visit (AWV) [facility] Work Phone: Start: 2018 RSV Vaccine (1 - 1-dose 75+ series) RSV Vaccine (1 - 1-dose 75+ series) [facility] Start: 06-12-2010 PNEUMOCOCCAL: 65+ (2 - PCV) PNEUMOCOCCAL: 65+ (2 - PCV) [facility] Start: 2008 DEXA (modify frequency per FRAX score) DEXA (modify frequency per FRAX score) [facility] Work Phone: Start: 2003 RSV Vaccine (1 - 1-dose 60+ series) RSV Vaccine (1 - 1-dose 60+ series) [facility] Start: 1998 Screening for osteoporosis DEXA (modify frequency per FRAX score) [place], [place] Start: 1993 Colon cancer screen colonoscopy Colon cancer screen colonoscopy [facility] Work Phone: Start: 1993 Shingles Vaccine (1 of 2) Shingles Vaccine (1 of 2) [facility] Work Phone: Start: 1993 SHINGRIX VACCINE (1 of 2) SHINGRIX VACCINE (1 of 2) [facility] Start: 1983 Lipid screen Lipid screen [facility] Work Phone: Start: 1962 DTaP/Tdap/Td vaccine (1 - Tdap) DTaP/Tdap/Td vaccine (1 - Tdap) [place], [place] Start: 1962 SHINGRIX VACCINE (1 of 2) SHINGRIX VACCINE (1 of 2) [facility] Start: 1961 BP CONTROLLED (<130/80) BP CONTROLLED (<130/80) [facility] Start: 1955 COVID-19 Vaccine (1) COVID-19 Vaccine (1) [facility] Work Phone: Start: 1954 DTaP/Tdap/Td vaccine (1 - Tdap) DTaP/Tdap/Td vaccine (1 - Tdap) [facility] Work Phone: Start: 1943 Hepatitis C screening Hepatitis C screen [facility] [place] Bacteria identified in Urine by Culture URINE CULTURE Microbiology Routine Urinary frequency 05/13/2022 11:57 AM EDT [facility] Work Phone: Bacteria identified in Urine by Culture URINE CULTURE Microbiology Routine Urinary frequency 2023 2:58 PM EST [facility] Work Phone: Bacteria identified in Urine by Culture URINE CULTURE Microbiology Routine Urinary frequency 05/11/2024 2:42 PM EDT [facility] Work Phone: Bacteria identified in Urine by Culture URINE CULTURE Microbiology Routine Burning with urination 07/27/2024 2:42 PM EST [facility] Work Phone: Bacteria identified in Urine by Culture BACTERIAL CULTURE, URINE Microbiology Routine Burning with urination Ordered: 11/01/2024 [facility] Work Phone: Comment on above: Ordered: 11/01/2024 End: 09-13-2020 Basic metabolic 2000 panel Basic Metabolic Panel Lab STAT One Time for 1 Occurrences starting 09/13/2020 until 09/13/2020 [facility] Comment on above: One Time for 1 Occurrences starting 08/23 until 09/13/2020 Basic metabolic 2000 panel Basic Metabolic Panel Lab STAT 09/13/2020 12:43 PM EST [facility] [place] CBC W Auto Different ial panel - Blood CBC + DIFF Lab STAT 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) 02/24/2023 1:41 PM EDT [facility] Work Phone: COVID & INFLUENZA A/ B & RSV NAAT, ROUTINE COVID & INFLUENZA A/B & RSV NAAT, ROUTINE Microbiology Routine URI, acute 10/27/2023 10:17 AM EST [facility] Work Phone: COVID & INFLUENZA A/ B & RSV PCR, ROUTINE COVID & INFLUENZA A/B & RSV PCR, ROUTINE Microbiology Routine Viral URI Ordered: 11/12/2024 [facility] Comment on above: Ordered: 11/12/2024 Creatine kinase [Enzymatic activity/volume] in Serum or Plasma [facility] End: 09-29-2023 Ct abdomen & pelvis w/contrast material CT ABD/PEL W IVCON Radiology Routine 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) 1 Occurrences starting 08/30/2022 until 09/29/2023 [facility] Work Phone: Comment on above: 1 Occurrences starting 08/30/2022 until 09/29/2023 CT Abdomen and Pelvi s W contrast IV CT ABD/PEL W IVCON Radiology Routine 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) Encounter for screening mammogram for malignant neoplasm of breast 12/24/2023 12:01 PM EDT [facility] Work Phone: End: 02-06-2025 CT Abdomen and Pelvis W contrast IV CT ABD/PEL W IVCON Radiology Routine 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) Enlarged lymph nodes Abnormal CT of the abdomen 1 Occurrences starting 01/08/2024 until 02/06/2025 [facility] Work Phone: Comment on above: 1 Occurrences starting 01/08/2024 until 02/06/2025 CT Abdomen and Pelvi s W contrast IV CT ABD/PEL W IVCON Radiology Routine 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) Enlarged lymph nodes Abnormal CT of the abdomen 04/15/2024 11:26 AM EDT [facility] Work Phone: End: 05-26-2025 CT Abdomen and Pelvis W contrast IV CT ABD/PEL W IVCON Radiology Routine 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) 1 Occurrences starting 04/26/2024 until 05/26/2025 [facility] Work Phone: Comment on above: 1 Occurrences starting 04/26/2024 until 05/26/2025 CT Abdomen and Pelvi s W contrast IV CT ABD/PEL W IVCON Radiology Routine 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) 08/27/2024 11:44 AM [facility] Work Phone: End: 10-04-2025 CT Abdomen and Pelvis W contrast IV CT ABD/PEL W IVCON Radiology Routine 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) 1 Occurrences starting 09/03/2024 until 10/04/2025 [facility] Comment on above: 1 Occurrences starting 09/03/2024 until 10/04/2025 CT Abdomen and Pelvi s W contrast IV CT ABD/PEL W IVCON Radiology Routine 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) 11/12/2024 2:59 PM [facility] End: 01-09-2026 CT Abdomen and Pelvis W contrast IV CT ABD/PEL W IVCON Radiology Routine 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) 1 Occurrences starting 12/10/2024 until 01/09/2026 [facility] Work Phone: Comment on above: 1 Occurrences starting 12/10/2024 until 01/09/2026 CT Abdomen and Pelvi s W contrast IV CT ABD/PEL W IVCON Radiology Routine 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) 03/14/2025 11:01 AM [facility] Work Phone: CT Chest W contrast IV CT CHEST W IVCON Radiology Routine 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) Encounter for screening mammogram for malignant neoplasm of breast 12/24/2023 12:01 PM [facility] Work Phone: End: 05-26-2025 CT Chest W contrast IV CT CHEST W IVCON Radiology Routine 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) 1 Occurrences starting 04/26/2024 until 05/26/2025 [facility] Comment on above: 1 Occurrences starting 04/26/2024 until 05/26/2025 CT Chest W contrast IV CT CHEST W IVCON Radiology Routine 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) 08/27/2024 11:44 AM EST [facility] End: 10-03-2025 CT Chest W contrast IV CT CHEST W IVCON Radiology Routine 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) 1 Occurrences starting 09/03/2024 until 10/03/2025 [facility] Work Phone: Comment on above: 1 Occurrences starting 09/03/2024 until 10/03/2025 CT Chest W contrast IV CT CHEST W IVCON Radiology Routine 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) 11/12/2024 2:59 PM EST [facility] Work Phone: End: 01-09-2026 CT Chest W contrast IV CT CHEST W IVCON Radiology Routine 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) 1 Occurrences starting 12/10/2024 until 01/09/2026 [facility] Comment on above: 1 Occurrences starting 12/10/2024 until 01/09/2026 CT Chest W contrast IV CT CHEST W IVCON Radiology Routine 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) 03/14/2025 11:01 AM EDT [facility] End: 09-29-2023 CT CHEST W IVCON CT CHEST W IVCON Radiology Routine 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) 1 Occurrences starting 08/30/2022 until 09/29/2023 [facility] Work Phone: Comment on above: 1 Occurrences starting 08/30/2022 until 09/29/2023 End: 09-06-2020 Culture, Urine Culture, Urine Microbiology STAT One Time for 1 Occurrences starting 09/06/2020 until 09/06/2020 [employer], [place] Comment on above: One Time for 1 Occurrences starting 08/22 until 09/06/2020 Culture, Urine [employer], [place] End: 09-13-2020 Culture, Urine Culture, Urine Microbiology STAT One Time for 1 Occurrences starting 09/13/2020 until 09/13/2020 [employer] Comment on above: One Time for 1 Occurrences starting 08/23 until 09/13/2020 DBT Breast - bilater al screening ROXANNE SCREENING W ANTHONY Radiology Routine 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) Encounter for screening mammogram for malignant neoplasm of breast 07/09/2024 11:15 AM EDT [facility] Work Phone: End: 07-08-2024 Echocardiography ECHO Cardiology Routine Valvular heart disease 1 Occurrences starting 07/08/2023 until 07/08/2024 [facility] Work Phone: Comment on above: 1 Occurrences starting 07/08/2023 until 07/08/2024 EKG 12 Lead - Chest Pain EKG 12 Lead - Chest Pain ECG STAT 09/13/2020 12:55 PM [facility], [place] End: 03-29-2025 Flexible sigmoidoscopy study COLONOSCOPY DIAGNOSTIC Endoscopy Routine Diarrhea, unspecified type 1 Occurrences starting 03/29/2024 until 03/29/2025 [facility] Work Phone: Comment on above: 1 Occurrences starting 03/29/2024 until 03/29/2025 End: 11-27-2023 HOME SLEEP APNEA TEST (HSAT) HOME SLEEP APNEA TEST (HSAT) Procedures Routine CHRISTIANA (obstructive sleep apnea) 1 Occurrences starting 11/27/2022 until 11/27/2023 [facility] Work Phone: Comment on above: 1 Occurrences starting 11/27/2022 until 11/27/2023 End: 02-28-2023 ROXANNE SCREENING W ANTHONY ROXANNE SCREENING W ANTHONY Radiology Routine Encounter for screening mammogram for malignant neoplasm of breast 1 Occurrences starting 01/29/2022 until 02/28/2023 [facility] Work Phone: Comment on above: 1 Occurrences starting 01/29/2022 until 02/28/2023 End: 07-12-2024 ROXANNE SCREENING W ANTHONY ROXANNE SCREENING W ANTHONY Radiology Routine Encounter for screening mammogram for malignant neoplasm of breast 1 Occurrences starting 06/13/2023 until 07/12/2024 [facility] Work Phone: Comment on above: 1 Occurrences starting 06/13/2023 until 07/12/2024 End: 08-26-2025 MR Brain WO and W contrast IV MRI BRAIN WO/W IVCON Radiology Routine Worsening headaches 1 Occurrences starting 07/27/2024 until 08/26/2025 [facility] Work Phone: Comment on above: 1 Occurrences starting 07/27/2024 until 08/26/2025 End: 04-30-2021 MRI LUMBAR SPINE W WO CONTRAST MRI LUMBAR SPINE W WO CONTRAST Imaging Routine Once for 1 Occurrences starting 04/30/2021 until 04/30/2021 [facility] Work Phone: Comment on above: Once for 1 Occurrences starting 04/30/20 21 until 04/30/2021 MRI LUMBAR SPINE W W O CONTRAST [facility] Work Phone: End: 08-30-2019 MRI LUMBAR SPINE W WO CONTRAST MRI LUMBAR SPINE W WO CONTRAST Imaging Routine Once for 1 Occurrences starting 08/30/2019 until 08/30/2019 [facility] Work Phone: Comment on above: Once for 1 Occurrences starting 08/30/20 19 until 08/30/2019 Patient Education ED Bronchitis with Wheezing (Adult) ED Sinusitis (Antibiotic Treatment) [facility] Work Phone: Patient referral [facility] Work Phone: End: 05-02-2024 Radex spine cervical 4 or 5 views XR CERV OTHER 4V AP/LAT/OBL Radiology Routine Left arm pain Neck pain 1 Occurrences starting 04/03/2023 until 05/02/2024 [facility] Work Phone: Comment on above: 1 Occurrences starting 04/03/2023 until 05/02/2024 Radex spine cervical 4 or 5 views XR CERV OTHER 4V AP/LAT/OBL Radiology Routine Left arm pain Neck pain 04/03/2023 10:30 AM EDT [facility] Work Phone: Radiologic exam ches t 2 views XR CHEST 2V FRONTAL/LAT Radiology Routine SOB (shortness of breath) Bronchitis 04/22/2022 4:40 PM EDT [facility] Work Phone: SURGICAL PATHOLOGY [facility] Work Phone: Comment on above: Release Upon Ordering for 1 Occurrences starting 04/29/2024, 1 completed Troponin T.cardiac [Mass/volume] in Serum or Plasma by High sensitivity method [facility] Troponin T.cardiac [Mass/volume] in Serum or Plasma by High sensitivity method [facility] End: 09-13-2020 Troponin x1 Troponin x1 Lab STAT One Time for 1 Occurrences starting 09/13/2020 until 09/13/2020 [place], [place] Comment on above: One Time for 1 Occurrences starting 08/23 until 09/13/2020 Troponin x1 Troponin x1 Lab STAT 09/13/2020 12:43 PM ARMEN [place], [place] End: 04-03-2024 US CAROTID ARTERIES [facility] US CAROTID ARTERIES [facility] Vascular Lab Routine Bilateral carotid artery stenosis 1 Occurrences starting 04/03/2023 until 04/03/2024 [facility] Work Phone: Comment on above: 1 Occurrences starting 04/03/2023 until 04/03/2024 End: 05-02-2025 US Extremity - left US EXTREMITY MASS/FLUID COLLECTION LEFT Radiology Routine Soft tissue mass 1 Occurrences starting 04/02/2024 until 05/02/2025 [facility] Work Phone: Comment on above: 1 Occurrences starting 04/02/2024 until 05/02/2025 US Head and neck sof t tissue US HEAD/NECK SOFT TISSUE OTHER Radiology Routine Neck mass 11/07/2023 10:54 AM ARM[facility] Work Phone: End: 11-25-2024 US HEAD/NECK SOFT TISSUE OTHER US HEAD/NECK SOFT TISSUE OTHER Radiology Routine Neck mass 1 Occurrences starting 10/27/2023 until 11/25/2024 [facility] Work Phone: Comment on above: 1 Occurrences starting 10/27/2023 until 11[facility]25/2024 [facility] Immunization Date Immunization Notes Care Provider Fa cili 06-11-2022 influenza, high-dose , quadrivalent vaccine (FLUZONE HIGH DOSE QUADRIVALENT) [place] Nurse Work Phone: [facility] Work Phone: 06-11-2022 pneumococcal (PCV20) vaccine, 20 valent (PREVNAR 20) Il Nurse Work Phone: [facility] Work Phone: 06-11-2022 pneumococcal Conjuga te, unspecified formulation Il Nurse Work Phone: [facility] Work Phone: 06-11-2022 influenza virus vacc ine, unspecified formulation César Quintero DO Work Phone: [facility] 05-22-2022 pneumococcal PCV20 vaccine (PREVNAR 20) 0.5 mL injection Chinyere Shea RN Work Phone: [facility] Work Phone: Comment on above: Inject 0.5 mL intram uscularly one time only for 1 dose. 06-23-2013 influenza virus vacc ine, unspecified formulation Slyvia Lizama MD Work Phone: [facility] 06-29-2011 influenza virus vacc ine, unspecified formulation Sylvia Lizama MD Work Phone: [facility] 12-11-2010 tetanus and diphther ia toxoids, adsorbed, preservative free, for adult use (2 Lf of tetanus toxoid and 2 Lf of diphtheria toxoid) Sylvia Lizama MD Work Phone: [facility] Work Phone: 08-07-2010 influenza virus vacc ine, unspecified formulation Sylvia Lizama MD Work Phone: [facility] 06-12-2009 influenza virus vacc ine, unspecified formulation Sylvia Lizama MD Work Phone: [facility] Work Phone: 06-12-2009 pneumococcal polysaccharide vaccine, 23 valent Sylvia Lizama MD Work Phone: [facility] Work Phone: 08-05-2008 influenza virus vacc ine, unspecified formulation Sylvia Lizama MD Work Phone: [facility] 08-22-2005 influenza virus vacc ine, unspecified formulation Sylvia Lizama MD Work Phone: [facility] Work Phone: Payers Date Payer Category Payer Self-pay [id number] 2017 Private Health Insurance [facility] MEDICARE SUPP xxxxxxxxxxx 2017-Present [phone] [address] [place] [address] xxxxxxxxxxx [id number] 2017 Private Health Insurance [facility] AAR SUPPLEMENT [id number] 2017-Present [phone] [address] [place] [address] Indemnity [id number] 2017 Private Health Insurance [id number] 2014 Medicare [id number] 2014 Medicare MEDICARE MEDICAR E PART A AND B xxxxxxxxxx 2014-Present [phone] [address] [address] [place] [address] xxxxxxxxxx [id number] 2010 Private Health Insurance [id number] 2008 Medicare 2008 Medicare MEDICARE MEDICAR E A AND B [id number] 2008-Present [phone] [address] [address] [place] [address] Medicare [id number] 2008 Medicare [id number] .[id number] Unknown [id number] 1.13.159.2 .[id number] Unknown [id number] 2.16.840.1.478742.3.579.2 .462 Unknown [id number] 2.16.840.1.474709.3.579.2 .462 Unknown [id number] 2.16.840.1.845258.3.579.2 .462 Unknown [id number] 2.16.840.1.347001.3.579.2 .462 Unknown [id number] 2.16.840.1.667396.3.579.2 .462 Unknown [id number] 2.16.840.1.000092.3.579.2 .462 Unknown [id number] 2.16.840.1.670701.3.579.2 .462 Unknown [id number] 2.16.840.1.411584.3.579.2 .462 Unknown [id number] 2.16.840.1.284920.3.579.2 .462 Unknown [id number] 2.16.840.1.821730.3.579.2 .462 Unknown [id number] 2.16.840.1.529142.3.579.2 .462 Unknown [id number] 2.16.840.1.398261.3.579.2 .462 Unknown [id number] 2.16.840.1.744237.3.579.2 .462 Unknown [id number] 2.16.840.1.939042.3.579.2 .462 Unknown [id number] 2.16.840.1.470631.3.579.2 .462 Unknown [id number] 2.16.840.1.754399.3.579.2 .462 Unknown [id number] 2.16.840.1.016438.3.579.2 .462 Unknown [id number] 2.16.840.1.570127.3.579.2 .462 Unknown [id number] 2.16.840.1.604681.3.579.2 .462 Unknown [id number] 2.16.840.1.568121.3.579.2 .462 Social History Date Type Detail Facility Start: 10-11-2018 End: 05-07-2022 Tobacco smoking status WIIS Never smoker [facility] Start: 10-11-2018 End: 05-07-2022 Tobacco use and exposure Never used [facility] / ?.?? [facility], [place] Start: 10-11-2018 End: 03-22-2025 Alcohol intake Current non-drinker of alcohol (finding) [facility] Work Phone: Start: 1945 Sex Assigned At Not on file [facility] Work Phone: Start: 07-30-2020 End: 07-23-2022 Exposure to SARS-CoV-2 (event) Not sure [facility] / ?.?? [facility] Start: 12-12-2021 End: 12-12-2021 Assertion Unknown if ever smoked [facility] Work Phone: Start: 10-16-2021 End: 11-14-2022 History SDOH Alcohol Frequency 1 [facility] Start: 09-26-2020 History SDOH Alcohol Std Drinks 98 [facility] Start: 09-26-2020 End: 10-16-2021 History SDOH Social Connections Phone 5 [facility] Start: 10-16-2021 End: 11-14-2022 History SDOH Social Connections Get Together 4 [facility] Start: 10-16-2021 End: 11-14-2022 History SDOH Social Connections [employer] 3 [facility] Start: 09-26-2020 End: 11-14-2022 History SDOH Physical Activity MPS 2 [facility] Start: 09-26-2020 Education 11 [facility] Start: 1945 Sex Assigned At Female [facility] Start: 09-04-2020 None [facility] Start: 09-04-2020 Alone [facility] Start: 01-22-2021 Non-smoker [facility] Start: 11-14-2022 History SDOH Alcohol Std Drinks 0 [facility] Start: 11-14-2022 End: 02-21-2023 History of Social function [facility] Start: 11-14-2022 End: 02-21-2023 Social connection and isolation panel [facility] Active Member of [facility] bs or Organizations Not on file [facility] Are you now , , , , never or living with a partner? [facility] How often to you hav e a drink containing alcohol? Never [facility] Do you feel stress - tense, restless, nervous, or anxious, or unable to sleep at night because your mind is troubled all the time - these days [OSQ] Only a little [facility] (I/We) worried wheth er (my/our) food would run out before (I/we) got money to buy more. Never true [facility] In the past 12 month s, was there a time when you were not able to pay the mortgage or rent on time? No [facility] Start: 08-07-2020 Gender identity Identifies as female gender (finding) [facility] Start: 08-07-2020 Sexual orientation Heterosexual (finding) [facility] Do you belong to any clubs or organizations such as uatsdin groups, unions, fraternal or athletic groups, or school groups? Yes [facility] Do you feel stress - tense, restless, nervous, or anxious, or unable to sleep at night because your mind is troubled all the time - these days [OSQ] Not at all [facility] How hard is it for y ou to pay for the very basics like food, housing, medical care, and heating Not very hard [facility] Do you feel stress - tense, restless, nervous, or anxious, or unable to sleep at night because your mind is troubled all the time - these days [OSQ] To some extent [facility] Start: 11-26-2024 End: 12-01-2024 Sex Female (finding) [facility] Medical Equipment Procedure Code Equipment Code Equipment Origin al Text Equipment Identifier Dates Total cholecystectomy with exploration of common bile duct Ligation clip, synthetic polymer, non-bioabsorbable [id number] FDA Start: 08-02-2022 Ivc Filter Trap Ease Permanent-08/28/2018 [id number] Start: 08-28-2018 Comment on above: Description: IVC mirna ter. Right groin access. TrapEase Permanent Vena Cava Filter. Port Powerport M ri 8fr Plastic Polyurethane Implantable Infusion - [id number] Start: 06-05-2022 Goals Date Patient Goal Desired Activity /State Personal health goal Comment on above: Formatting of this n ote might be different from the original. Pt's goal is improved BP and improved pain in her back Personal health goal Comment on above: Formatting of this n ote might be different from the original. Pt's goal is improved BP and improved pain in her back Functional Status Date Assessment Result Facility 03-01-2025 Total score [AUDIT-C] 0 03/01/20 25 11:12 AM EDT Sabrina Cavanaugh MA [facility] 12-01-2024 Functional status Ambulates [facility] Work Phone: 08-04-2022 Functional status Ambulates;Bath room Privilege [facility] Work Phone: 06-01-2021 Are you deaf, or do you have serious difficulty hearing No 06/01/2021 10:26 AM EDT Neeru Butterfield RN No [facility] 06-01-2021 Are you blind, or do you have serious difficulty seeing, even when wearing glasses No 06/01/2021 10:26 AM Neeru Ayoub, FRANCESCO No [facility] 06-01-2021 Do you have serious difficulty walking or climbing stairs No 06/01/2021 10:26 AM Neeru Ayoub, FRANCESCO No [facility] 06-01-2021 Do you have difficul ty dressing or bathing No 06/01/2021 10:26 AM Neeru Ayoub, FRANCESCO No [facility] 06-01-2021 Because of a physica l, mental, or emotional condition, do you have difficulty doing errands alone such as visiting a physician's office or shopping No 06/01/2021 10:26 AM Neeru Ayoub, FRANCESCO No [facility] Mental Status Date Assessment Result Facility 04-01-2025 Cognitive function Level Of Cons ciousness Awake;Alert;Appropriate;Fol lows Commands [facility] Work Phone: 12-01-2024 Cognitive function Voice/Name [facility] Work Phone: 11-06-2024 Cognitive function Level Of Cons ciousness Awake;Alert;Appropriate;Fol lows Commands [facility] Work Phone: 08-04-2022 Cognitive function Voice/Name [facility] Work Phone: 06-01-2021 Because of a physica l, mental, or emotional condition, do you have serious difficulty concentrating, remembering, or making decisions No 06/01/2021 10:26 AM Neeru Ayoub, FRANCESCO No [facility] Clinical Notes 08-30-2020 to 04-01-2025 Note Date & Type Note Facility 04-01-2025 History and physi tami note [facility] 04-01-2025 Discharge summary [facility] 04-01-2025 Radiology Diagnostic study note [facility] Imaging Services [address] [place], [place] [address] STROKE CTA Head AND Neck W/Con MR#: [id number] Acct: [id number] Name: LISA UP Rep #: [id number] : 1945 F 79 From: [facility] richar Redman MD PCP: Dr. Sylvia Lizama MD Status: REG E R Study:STROKE CTA Head AND Neck W/Con Date of Exam: 04/01/25 Exam# [id number] Ordering Dr: Xenia Jones MD PROCEDURE: STROKE CTA HEAD AND NECK W/CON 04/01/2025 REASON FOR EXAM: NEURO DEFICIT, ACUTE, STROKE SUSPECTED TECHNIQUE: STROKE CTA HEAD AND NECK W/CON Multiplanar Sagittal and Coronal images were obtained. 3D and MIP multiplanar post processing was performed. CONTRAST: Isovue 370 VOLUME: 100 mL One or more dose reduction techniques were used (e.g., Automated exposure control, adjustment of the mA and/or kV according to patient size, use of iterative reconstruction technique). RADIATION DOSE SUMMARY: DLP: 1549.45 mGycm COMPARISON: Brain MRI and CT head dated 11/26/2024. FINDINGS: CTA HEAD: Patent intracranial arterial vasculature. No large vessel occlusion, flow-limiting stenosis, saccular aneurysm, or vascular malformation identified. Major dural venous sinuses appear patent. CTA NECK: Conventional aortic arch branching. Bilateral cervical carotid and codominant vertebral arteries are patent without significant stenosis. No luminal irregularity to suggest aneurysm or dissection. NONCONTRAST CT HEAD: No acute intracranial hemorrhage, extra-axial collection, mass effect or evidence of acute infarct. Mild age-appropriate generalized brain parenchymal volume loss, and chronic small-vessel ischemic changes in the supratentorial white matter. Orbital contents are unremarkable. Intact skull base and calvarium. Poor dentition with edentulous maxilla. Scattered mucosal thickening mainly within the posterior right ethmoid air cellsand floor of left maxillary sinus. No mastoid effusions. Degenerative changes of the cervical spine. CT/STROKE CTA Head AND Neck W/Con IMPRESSION: 1. Widely patent intracranial and cervical arterial vasculature. 2. No evidence of acute intracranial pathology. 3. Mild volume loss and chronic microangiopathic changes. Reading Location: [facility] CC: Dr. Chase Jones MD; Dr. Sylvia Lizama MD ~ Software Engineer Backend: Signed [facility] 04-01-2025 Discharge summary Note Date/Time April 01, 2025 5:05pm [facility] Medical Records Department [address] [place] [address] Emergency Department Summary 04/01/25 MR#: [id number] Acct: [id number] Name: LISA UP Rep #:[id number] : 1945 79 From: Chase Jones MD PCP: Dr. Sylvia Lizama MD Status:REG E R Location: ED HPI History of Present Illness Chief Complaint: Weakness Detail of Chief Complaint: Diplopia, balance is off and not as alert per daughter Informant: patient and family Onset/Context/Timing Onset: Days (2 to 4 days prior to presentation) Context: Sudden Onset Timing: Continuous Quality and Location: Positive for Difficulty with Ambulation and - (Diplopia) Onset: 2 to 4 days ago. Daughter states she was not aware until last evening. Current Severity: Mild Maximum Severity: Moderate Worsened by: Nothing Relieved by: Nothing Associated Symptoms Associated Symptoms: Positive for Nausea; Negative for Headache, Vomiting or Chest Pain Narrative Narrative: Patient is an 79-year-old woman with multiple medical problems. She presents with her balance being off and double vision that started between 2 to 4 days ago. Patient cannot be more specific. She does have a history of benign paroxysmal positional vertigo. She states this is different. The dizziness is defined as her balance being off is continuous. She states 2 to 3 days ago she was having trouble reading text on the computer because she would see doubleor double shadows. She denies headache. She denies loss of vision. She denies ringing or ears decreased hearing. There is been no slurred speech or difficulty expressing herself. She has numbness right lower extremity due to nerve root issue in her back. She also has weakness in that leg due to back issues. Patient denies cardiac or respiratory symptoms. She denies any GI symptoms other than some mild nausea. She does admit that she has problems with circulation in her legs and stated itis bad . Prior similar symptoms: No Recent Illness/Hospitalization: No PFSH [facility] Medical History DVT (deep venous thrombosis) Post-menopausal Dyspnea History of stress test Ovarian tumor Anticoagulant long-term use Non Hodgkin's lymphoma Dehiscence of surgical wound GERD (gastroesophageal reflux disease) Restless leg syndrome Peripheral neuropathy Osteoarthritis Hypertension Morbid obesity with BMI of 40.0-44.9, adult Home Medications ?Medication ?Instructions ?Recorded ?Last Taken ?Type potassium chloride 10 mEq 10 meq PO BID supplement 11/25/24 History tablet,extended release(part/cryst) multivitamin with folic acid 400 1 tab PO DAILY vitami n 08/01/18 11/25/24 History mcg tablet (Thera) apixaban 5 mg tablet 5 mg PO BID blood thinner 11/25/24 History levothyroxine 75 mcg tablet 75 mcg PO DAILY thyroid 11/25/24 History carvedilol 25 mg tablet 25 mg PO BID blood pressure 03/24/24 11/25/24 History gabapentin 400 mg capsule 400 mg PO TID nerve pain 12/1311/25/24 History hydralazine 50 mg tablet 50 mg PO BID blood pressure 03/24/24 11/25/24 History paroxetine HCl 10 mg tablet 10 mg PO DAILY mental heal th 03/24/24 11/25/24 History clonidine HCl 0.1 mg tablet 0.1 mg PO BID 30 days #60 tabs 03/26/24 11/25/24 Rx losartan 100 mg tablet 100 mg PO DAILY 07/04/2403/16 History meclizine 25 mg tablet 25 mg PO TID 07/04/24 Unknow n History omeprazole 20 mg capsule,delayed 20 mg PO DAILY PRN ac id reflux 07/04/24 11/25/24 History release albuterol sulfate 90 mcg/actuation 2 puff inhalation Q 4H PRN Wheezing 11/26/24 11/25/24 History aerosol inhaler (Ventolin HFA) cefdinir 300 mg capsule 300 mg PO BID #4 caps Unknown Rx Allergy/AdvReac Type Severity Reaction Status Date / Time COVID-19 vaccine, mRNA, Allergy Anaphylaxis Verified 04/01/25 12:34 [id number], erythromycin base Allergy Rash Verified 04/01/25 12:34 (Erythromycin Base) lisinopril Allergy Swelling Verified 04/01/25 12:34 venom-wasp (wasp) Allergy NEEDS Verified 04/01/25 12:34 FOLLOW-UP amlodipine AdvReac Swelling Verified 04/01/25 12:34 latex AdvReac Swelling Verified 04/01/25 12:34 Family History Mother Hypertension Surgical History S/P laparoscopic cholecystectomy S/P hysterectomy H/O laminectomy History of partial nephrectomy History of tonsillectomy History of total knee arthroplasty History of total abdominal hysterectomy Social History Smoking Status: Never smoker ROS ROS ED Constitutional Constitutional ED: Denies chills, fever(s), subjective or sweats Eyes Eyes: Reports diplopia and other Details: With problems with her vision, diplopia, is pronounced when she reads things closely. And the diplopia is horizontal. ; Denies blurry vision or change in vision ENT ENT ED: Denies ear pain, rhinorrhea or sore throat Cardiovascular Cardiovascular: Denies chest pain, palpitations or paroxysmal nocturnal dyspnea Respiratory/Chest Respiratory/Chest: Denies cough, dyspnea, dyspnea on exertion or paroxysmal nocturnal dyspnea Gastrointestinal Gastrointestinal: Reports nausea; Denies abdominal pain, constipation, diarrhea,melena or vomiting Genitourinary Genitourinary ED: Denies dysuria, hematuria or urinary frequency Musculoskeletal Musculoskeletal: Reports back pain; Denies arthralgias or myalgias Integumentary Denies Abrasions or rash Neurologic Neurologic: Reports paresthesias RLE (Chronic) and weakness; Denies headache(s) Psychiatric Psychiatric: Denies anxiety Hematologic/Lymphatic Hematologic/Lymphatic: Denies easy bleeding or easy bruising EXAM Physical Exam Const Vital Signs: 04/01/25 12:34 04/01/25 13:34 04/01/25 14:26 Temperature 98 F Temperature Source Temporal Pulse Rate 72 69 68 Respiratory Rate 14 Respiratory Effort Respiratory Pattern Blood Pressure 126/59 H 139/63 H 137/69 H Blood Pressure Mean 81 88 91 Pulse Ox 98 96 96 Oxygen Delivery Method Room Air 04/01/25 14:53 04/01/25 14:54 04/01/25 14:59 Temperature Temperature Source Pulse Rate Respiratory Rate Respiratory Effort Normal Respiratory Pattern Normal Blood Pressure Blood Pressure Mean Pulse Ox Oxygen Delivery Method Room Air Room Air 04/01/25 14:59 04/01/25 15:29 04/01/25 15:30 Temperature Temperature Source Pulse Rate 68 66 66 Respiratory Rate 14 16 16 Respiratory Effort Respiratory Pattern Blood Pressure 149/65 H 152/78 H 152/78 H Blood Pressure Mean 93 102 102 Pulse Ox 100 98 99 Oxygen Delivery Method 04/01/25 16:00 04/01/25 16:00 04/01/25 16:30 Temperature Temperature Source Pulse Rate 67 67 66 Respiratory Rate 16 16 17 Respiratory Effort Respiratory Pattern Blood Pressure 157/82 H 157/82 H 171/91 H Blood Pressure Mean 107 107 117 Pulse Ox 99 99 98 Oxygen Delivery Method Room Air Positive well nourished and well developed General Appearance ED: well developed and NAD HEENT Reports moist mucous membranes atraumatic Nose: other Other Details: Ears are normal. Posterior pharynx erythema or exudate. Uvula midline. No deviation of tongue with protrusion. Eyes PERRL and EOMs intact bilaterally Eyes Narrative: No obvious nystagmus. No visual field cut. General Eye ED: Negative for pale conjunctiva or scleral icterus Neck no lymphadenopathy, supple and no JVD Neck Narrative: Patient has abnormal inspiratory and expiratory sounds over the trachea. She has had a prior tracheostomy/cricothyroidotomy performed emergently for angioedema due to COVID-vaccine. She also has obstructive sleep apnea. Chest Wall inspection of chest normal and palpation of chest normal Resp normal respiratory effort and clear to auscultation bilaterally Cardio no murmurs Rate: regular rate Rhythm: regular rhythm Heart Sounds: S1 normal and S2 normal GI normal to inspection, nondistended, normoactive bowel sounds, soft to palpation,non-tender, non-distended and no masses Back/Spine no CVA tenderness Extremity normal to inspection General Extremety ED: Yes edema General Extremity: edema Neuro oriented x3 and CN's II-XII intact bilaterally Neuro Narrative: Awake but not alert according to the daughter. Stalin Coma Scale: document GCS findings Spontaneous Obeys Commands Oriented 15 Sensorium / Orientation: Negative for alert Speech: speech normal Sensory Exam: sensory level loss detected Motor Exam: Negative for strength 5/5 throughout Psych mental status grossly normal Skin no wounds General Skin Exam: Negative for jaundice Lesions: no lesions Rashes: no rashes MDM MDM MDM Narrative Medical decision making narrative: With diplopia, problems with balance and obvious abnormality with dysmetria right upper extremity and problems with [id number] the heel on the right concern patient had a posterior stroke. CT of the head without contrast was ordered as well as CTA of the head and neck determines any significant stenosis that would necessitate transfer to tertiary center. Okay patient's blood pressure is slightly elevated. Her presentation is not consistent with paroxysmal benign positional vertigo since she is complaining of diplopia and has obvious neurologic focal deficits. Lab Data Attestation: I reviewed the patient's lab results. Lab results narrative: CBC is unremarkable. Basic metabolic panel is unremarkable. Coags unremarkable. D-dimer slightly elevated 12. Labs: Laboratory Results - last 24 hr 04/01/25 04/01/25 14:25 14:50 WBC 6.0 RBC 4.25 Hgb 13.4 Hct 41.1 MCV 96.7 MCH 31.5 MCHC 32.6 RDW Std Deviation 44.5 H RDW Coeff of [place] 12.5 Plt Count 147 L MPV 10.1 Immature Gran % (Auto) 0.200 Neut % (Auto) 62.6 Lymph % (Auto) 23.5 [place] % (Auto) 9.6 Eos % (Auto) 3.9 Baso % (Auto) 0.2 Absolute Neuts (auto) 3.7 Absolute Lymphs (auto) 1.40 Nucleated RBC % 0 PT 17.0 H INR 1.4 APTT 32.1 Sodium 141 Potassium 4.2 Chloride 103 Carbon Dioxide 27.5 Anion Gap 11 BUN 14 Creatinine 0.91 Est GFR (MDRD) Non-Af 64 BUN/Creatinine Ratio 15.9 Glucose 107 H Calcium 9.9 Troponin T High Sens 12 D POC Glucose 109 H Radiography Diagnostic Testing: Clinical Impression(s) from Imaging Studies Head/Neck CTA 04/01/25 15:00 IMPRESSION: 1. Widely patent intracranial and cervical arterial vasculature. 2. No evidence of acute intracranial pathology. 3. Mild volume loss and chronic microangiopathic changes. Reading Location: [id number] Patient and daughter were informed of results. Hospitalist was paged EKG Initial EKG: Attestation: I personally reviewed and interpreted this EKG as follows: Interpretation: Sinus Rhythm (Rate is 65. EKG is normal. OH interval is 184 ms. Cures duration 90 ms. QT duration 414 ms. [place] is normal.) Management Discussion w/another healthcare provider: Hospitalist (Spoke with Dr. Andrade Moore. Full admit PCU) Discharge Plan Triage Chief Complaint: Weakness ED Provider: Chase Jones Dx/Rx/DC Orders Clinical Impression: Posterior circulation stroke, CHRISTIANA (obstructive sleep apnea), Neuropathy, Morbidobesity with BMI of 40.0-44.9, adult, Elevated blood pressure reading with diagnosis of hypertension, Difficulty in walking Prescriptions: No Action potassium chloride 10 MEQ tablet 10 meq PO BID multivitamin with folic acid [Thera] 1 TABLET tablet 1 tab PO DAILY apixaban 5 MG tablet 5 mg PO BID levothyroxine 75 mcg Tablet 75 mcg PO DAILY carvedilol 25 mg tablet 25 mg PO BID paroxetine HCl 10 mg tablet 10 mg PO DAILY gabapentin 400 mg capsule 400 mg PO TID hydralazine 50 mg tablet 50 mg PO BID Patient Comments: PT STATES HER DR SAID IF HER BLOOD PRESSURE IS HIGH, TAKE AN EXTRA DOSE. clonidine HCl 0.1 mg Tablet 0.1 mg PO BID 30 Days Qty: 60 0RF albuterol sulfate [Ventolin HFA] 90 mcg/actuation HFA aerosol inhaler 2 puff inhalation Q4H PRN (Reason: Wheezing) Rx Instructions: with spacer cefdinir 300 mg capsule 300 mg PO BID Qty: 4 0RF omeprazole 20 mg capsule,delayed release(DR/EC) 20 mg PO DAILY PRN (Reason: acid reflux) meclizine 25 mg tablet 25 mg PO TID Patient Comments: PT STATES SHE SHOULD TAKE THIS BUT DOESN'T, ONLY IF SHE IS DIZZY. losartan 100 mg tablet 100 mg PO DAILY Primary Care Provider: Sylvia Lizama Referrals: Sylvia Lizama MD [Primary Care Provider] - Print Language: [place] Disposition Disposition: Acute Care Hospital [facility] NIHSS NIHSS 1a. Level of Consciousness: 1 - Not alert; Arousable by minor stimuli to obey, answer & respond 1b. LOC Questions: 0 - Answers BOTH questions correctly 1c. LOC Commands: 0 - Performs BOTH tasks correctly 2. Best Gaze: 0 - Normal 3. Visual: 0 - No visual loss 4. Facial Palsy: 0 - Normal symmetrical movements 5a. Left Arm: 0 - No drift; arm holds 90 (or 45) degrees for full 10 seconds 5b. Right Arm: 0 - No drift; arm holds 90 (or 45) degrees for full 10 seconds 6a. Left Le - No drift; leg holds 30-degree position for full 5 seconds 6b. Right Le - No drift; leg holds 30-degree position for full 5 seconds 7. Limb Ataxia: 2 - Present in 2 limbs (Right upper limb is worse than the rightlower limb. There is a difference between the right and left side.) 8. Sensory: 1 - Tnzr-nl-xipiwrof sensory loss; (Altered sensation right lower extremity due to lumbar nerve problems.) 9. Best Language: 0 - No aphasia; normal 10. Dysarthria: 0 - Normal 11. Extinction and Inattention: 0 - No abnormality Total: 4 Stroke Questions Stroke Team Activated: No Reviewed Inclusion/Exclusion criteria: No IV Thrombolytic Administered: No No contraindications from thrombolytic administration: No What to do if you have Problems For any increased pain, shortness of breath, bleeding, nausea or vomiting, chestpain, or any unexpected problems, contact your Primary Care Provider. Call [facility] ([phone]) or report to the closest Emergency Room. Call 911 if necessary. 04/01/251704 <Electronically signed by Chase Jones MD> Cosigner Signature (if applicable): CC: Dr. Sylvia Lizama MD ~ Signed [facility] Work Phone: [phone] Telephone encounter Note* Telephone Encounter - Yarely Lee RN - 04/01/2025 12:00 PM EDT Daughter (Sabrina) calls with patient to report she has not been feeling well for the past 4 days. Patient has had dizziness and is afraid to walk for fear of falling, severe headache, severe weakness, double vision. Per nurse triage, recommended ER for evaluation. Patient poor historian not sure that she has been eating or drinking much as she wasn't sure. Patient hesitant at first because she goes there often for her HTN and doesn't feel they take her seriously but after speaking with her and daughter, she will go to ER (probably [facility] or maybe [place]). Daughter to call back if any follow up is needed after evaluation. Nothing further needed. Closing TE. Yarely Lee RN [facility]07-11-2025 Miscellaneous Notes* Telephone Encounter - Yarely Lee RN - 04/01/2025 12:00 PM EDT Daughter (Sabrina) calls with patient to report she has not been feeling well for the past 4 days. Patient has had dizziness and is afraid to walk for fear of falling, severe headache, severe weakness, double vision. Per nurse triage, recommended ER for evaluation. Patient poor historian not sure that she has been eating or drinking much as she wasn't sure. Patient hesitant at first because she goes there often for her HTN and doesn't feel they take her seriously but after speaking with her and daughter, she will go to ER (probably [facility] or maybe [place]). Daughter to call back if any follow up is needed after evaluation. Nothing further needed. Closing TE. Yarely Lee RN documented in this encounterA[facility]07-[facility]25 History of Present illness Narrative* Asad Deras - 03/22/2025 10:00 AM EDT Oncologic problem(s): 1) Follicular lymphoma. HPI: Lisa Up is an 79 year old female who presents here today for follow up lymphoma. H/o swelling in her neck and chest tightness who presented with an abnormal CT scan of the neck andchest. She had generalized adenopathy involving her supraclavicular, bilateral axillary, and subcarinal regions. 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 Removal of her prosthesis because of recurrent infection. She had no unexplained weight loss or increased fatigue. She had multiple transfusions in the past from her surgery. She denied history of hepatitis or HIV infection. 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 FINAL DIAGNOSIS A. 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 - See comment. Flow cytometric analysis of the bone marrow aspirate reveals that 15% of total events have the [id number] side scatter properties of lymphocytes. Interpretation: The lymphocytes are composed of a mixture of T cells (58%; CD4:CD8 ratio = 1.15), NK cells (4%) andB cells (34%). The majority of the B cells display an abnormal immunophenotype, and are positive for CD19, CD20 (bright), CD45 and kappa surface light chain. The B cells are negative for CD5, CD10 and the the remaining markers tested. CD200 could not be interpreted on the abnormal B cells due to nonspecific staining. Granulocytic elements are 64% of the events. Blasts are not increased. The findings are diagnostic of involvement by a B-cell lymphoproliferative disorder. Previous treatment: Rituximab -Bendamustine (started on 06/27/2022) She completed 2 cycle of chemotherapy in August 2022, unfortunately she had acute cholecystitis and subsequently had a laparoscopic cholecystectomy. OV : She has been having more numbness in her legs due to complications of her previous back surgery. Uses a walker. Also has fluctuating symptoms of disequilibrium. No abdominal pain. Fatigued. Presents for ongoing oncologic management. Interim history: Presents today with her daughter. Reviewed Cts without LAD. Feels ok. Still fatigued. She is now back at home. Lives independently. Notes recent difficulties managing her BP, following with PCP. Has not yet started diuretics. Better in the office today. Having come headaches. Otherwise no new issues. Denies Shortness of Breath, CP, palpitations. No changes in bowel habits. Denies bleeding. Has longstanding issues with incontinence. Has seen urology in the past. Competed rituximab weekly x4 10/08/2024. PAST MEDICAL HISTORY Diagnosis Date ANXIETY STATE NOS 06/07/2005 Arthritis Cancer (HCC) Carpal tunnel syndrome 06/07/2005 Cholelithiasis 06/17/2012 DEPRESSIVE DISORDER NEC 06/07/2005 Diverticulosis of colon (without mention of hemorrhage) Dizziness and giddiness 02/26/2010 GENERAL OSTEOARTHROSIS 06/07/2005 Goiter, unspecified 12/11/2010 Headache(784.0) 02/26/2010 Chronic. 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 Ramírez, severe PAST SURGICAL HISTORY Procedure Laterality Date ABDOMINAL SURGERY HX ARTHRP KNE CONDYLE&PLATU MEDIAL&LAT COMPARTMENTS February2010 Knee replacement, total, Left ARTHRP KNE CONDYLE&PLATU MEDIAL&LAT COMPARTMENTS 07/2010 Knee replacement, total, Right BACK SURGERY HX COLONOSCOPY FLX DX W/COLLJ SPEC WHEN PFRMD 06/05/2011 Colonoscopy COLONOSCOPY FLX DX W/COLLJ SPEC WHEN PFRMD N/A 12/04/2016 ESOPHAGOGASTRODUODENOSCOPY TRANSORAL DIAGNOSTIC N/A 12/04/2016 DEVORA FILTER 2018 INSJ TUNNELED CTR VAD W/SUBQ PORT AGE 5 YR/> 06/05/2022 JOINT REPLACEMENT HX L'SCOPE CHOLECYSTECTOMY 07/30/2022 Dr Gonzalez NEPHRECTOMY PARTIAL 1986 Nephrectomy, partial left (benign) PAST SURGICAL HISTORY OF 06/2018 lumbar burger with wound infection TONSILLECTOMY HX TOTAL ABDOMINAL HYSTERECT W/WO RMVL TUBE OVARY 1985 Hysterectomy, NEISHA VAGINAL HYSTERECTOMY ALLERGIES Allergen Reactions Covid-19 Vaccine, M* Anaphylaxis Adhesive Rash Blisters and dermatitis from op site dressing and tape Erythromycin Rash, GI Upset Urticarial rash, seen in [place] ER Latex Swelling Lisinopril Swelling Nafcillin Itching 06/29/21 negative penicillin skin testing. Passed oral amoxicillin challenge. Nifedipine Rash Norvasc [Amlodipine* Swelling Wasps Mental Status Change, Rash Current Outpatient Medications Medication Sig spironolactone (ALDACTONE) 25 mg tablet Take 1 tablet by mouth once daily. gabapentin (NEURONTIN) 300 mg capsule Take 1 capsule by mouth four times daily for 180 days. levothyroxine (SYNTHROID) 75 mcg tablet Take 1 tablet by mouth daily before breakfast. cloNIDine HCl (CATAPRES) 0.1 mg tablet Take 0.1 mg by mouth two times a day. meclizine (ANTIVERT) 25 mg tab Take 25 mg by mouth three times a day as needed. pantoprazole DR (PROTONIX) 20 mg tablet Take 20 mg by mouth every morning. loratadine (CLARITIN) 10 mg tablet Take 10 mg by mouth every morning. albuterol HFA (PROVENTIL HFA, VENTOLIN HFA) 90 mcg/actuation inhaler Inhale 2 Puffs as instructed every 4 hours as needed. hydrALAZINE (APRESOLINE) 50 mg tablet Take 1 tablet by mouth two times a day. carvedilol (COREG) 25 mg tablet Take 1 tablet by mouth two times a day. losartan (COZAAR) 100 mg tablet Take 1 tablet by mouth once daily. apixaban (ELIQUIS) 5 mg tab(s) Take 1 tablet by mouth two times a day. EPINEPHrine (EPIPEN) 0.3 mg/0.3 mL auto-injector Use as directed potassium chloride (K-TAB) 10 mEq tablet Take 1 tablet by mouth two times a day. OTC PRODUCT Super Snooze with Melatonin: Take one capsule by mouth at bedtime as needed. acetaminophen 650 mg CR tablet Take 650 mg by mouth every 8 hours as needed. multivitamin/iron/folic acid (CENTRUM ULTRA WOMEN'S ORAL) Take 1 tablet by mouth once daily. levothyroxine 88 mcg cap Take 88 mcg by mouth every Friday. (Patient not taking: Reported on 03/22/2025) No current facility-administered medications for this visit. Social History Tobacco Use Smoking status: Never Smokeless tobacco: Never Vaping Use Vaping status: Never Used Substance Use Topics Alcohol use: No Drug use: No Family History Problem Relation Age of Onset Heart Mother Cancer Mother lung Heart Father other (Other) Father Heart Brother [place], aneurysm Migraines Daughter Macular Degen Maternal Aunt ROS: Constitutional: No fevers. All systems reviewed on 03/22/2025 with pertinent positives and negatives as outlined in the intervalhistory. PHYSICAL EXAM: Vitals: Blood pressure 144/78, pulse 62, temperature 36.8 C (98.2 F), temperature source Temporal, weight 111.6 kg (246 lb), SpO2 97%. Fatigued appearing and in no acute distress. EYES: Sclerae are anicteric bilaterally. LYMPHATIC: There is no palpable cervical, supraclavicular, axillary adenopathy. CARDIOVASCULAR: Rhythm is regular. ABDOMEN: The abdomen is nondistended. Extremities: No swelling or edema. SKIN: No jaundice. I have performed the physical exam today (03/22/2025) and have edited the note to correlate with current findings. ASSESSMENT/PLAN: 1. 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 -CR following 2 cycles of BR. -Recent therapy with rituximab indicated due the mild hydronephrosis likely caused by adenopathy. -Reviewed CT findings. [place] Plan: -Continue to follow labs -CBC/CMP/LDH then OV in about 3-4 months. - Follow up with PCP and Urology Advised to call with any questions or concerns. Asad Deras APRN.CRISIS COUNSELOR I spent a total of 30 minutes on the date of the service which included preparing to see the patient, [id number] patient care, completing clinical documentation, obtaining and/or reviewing separately obtained history, performing a medically appropriate examination, and ordering medications, tests, or procedures. Portions of this note including HPI, ROS, impression/plan may have been copied forward as to provide important historical information essential in contributing to medical decision making. Documentation has been reviewed and edited as necessary to support clinical decision making for today's visit and to reflect my own independent evaluation of this patient. documented in this encounterAcmc [facility] System06-23-2025 Instructions* Patient Instructions* Gini Ayala APRN.CRISIS COUNSELOR - 03/14/2025 3:33 PM EDT - Start a low dose of spironolactone (a potassium-sparing weak water pill) once daily in the morning; you may notice slightly more frequent urination. - Continue clonidine as prescribed, two times a day. - Continue hydralazine twice daily; if your systolic blood pressure rises above 170 mmHg, you may take one additional dose (up to three doses total per day), spacing them out--do not take multiple doses at once. - If you do not receive the spironolactone from your pharmacy within 2-3 days, call our office. - Arrange blood work to recheck your potassium level after you have been on spironolactone for 3-4 days. - Schedule a follow-up visit in about two weeks to check your blood pressure and review your lab results. - When you measure your blood pressure at home: - Sit quietly for a few minutes before checking. - Keep your feet flat on the floor. - Rest your arm at heart level on a firm surface. - Avoid talking during the measurement. documented in this encounterAcmc Healthcare System06-23-2025 History of Present illness Narrative* Gini Ayala APRN.LEONCIO - 03/14/2025 3:12 PM EDT This is a 79 year old female who presents today with: Lisa Up is an 79-year-old female with a history of HTN, accompanied by her daughter, presenting for evaluation of blood pressure fluctuations. HISTORY OF PRESENT ILLNESS: Hypertension: - Lisa noted significant fluctuations in blood pressure readings since , with a high of 222/95 mmHg. - Reports feeling unwell since , but feels better today. - Lisa has been taken to the emergency room for blood pressure readings as high as 220/110 mmHg in the past. - Currently taking clonidine BID and hydralazine BID. - Takes an additional dose of hydralazine if blood pressure exceeds 170 mmHg. - Denies excessive salt intake. PAST MEDICAL HISTORY: PAST MEDICAL HISTORY Diagnosis Date ANXIETY STATE NOS 06/07/2005 Arthritis Cancer (HCC) Carpal tunnel syndrome 06/07/2005 Cholelithiasis 06/17/2012 DEPRESSIVE DISORDER NEC 06/07/2005 Diverticulosis of colon (without mention of hemorrhage) Dizziness and giddiness 02/26/2010 GENERAL OSTEOARTHROSIS 06/07/2005 Goiter, unspecified 12/11/2010 Headache(784.0) 02/26/2010 Chronic. 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 Ramírez, severe PAST SURGICAL HISTORY Procedure Laterality Date ABDOMINAL SURGERY HX ARTHRP KNE CONDYLE&PLATU MEDIAL&LAT COMPARTMENTS February2010 Knee replacement, total, Left ARTHRP KNE CONDYLE&PLATU MEDIAL&LAT COMPARTMENTS 07/2010 Knee replacement, total, Right BACK SURGERY HX COLONOSCOPY FLX DX W/COLLJ SPEC WHEN PFRMD 06/05/2011 Colonoscopy COLONOSCOPY FLX DX W/COLLJ SPEC WHEN PFRMD N/A 12/04/2016 ESOPHAGOGASTRODUODENOSCOPY TRANSORAL DIAGNOSTIC N/A 12/04/2016 WENDEL FILTER 2019 INSJ TUNNELED CTR VAD W/SUBQ PORT AGE 5 YR/> 06/05/2022 JOINT REPLACEMENT HX L'SCOPE CHOLECYSTECTOMY 07/30/2022 [facility]RECTOMY PARTIAL 1986 Nephrectomy, partial left (benign) PAST SURGICAL HISTORY OF 06/2018 lumbar burger with wound infection TONSILLECTOMY HX TOTAL ABDOMINAL HYSTERECT W/WO RMVL TUBE OVARY 1986 Hysterectomy, NEISHA VAGINAL HYSTERECTOMY ALLERGIES Covid-19 Vaccine, Mrna, [id number], Lnp-S (Moderna); Adhesive; Erythromycin; Latex; Lisinopril; Nafcillin; Nifedipine; Norvasc [Amlodipine Besylate]; and Wasps MEDICATIONS Current Outpatient Medications Medication Sig spironolactone (ALDACTONE) 25 mg tablet Take 1 tablet by mouth once daily. gabapentin (NEURONTIN) 300 mg capsule Take 1 capsule by mouth four times daily for 180 days. levothyroxine (SYNTHROID) 75 mcg tablet Take 1 tablet by mouth daily before breakfast. cloNIDine HCl (CATAPRES) 0.1 mg tablet Take 0.1 mg by mouth two times a day. meclizine (ANTIVERT) 25 mg tab Take 25 mg by mouth three times a day. pantoprazole DR (PROTONIX) 20 mg tablet Take 20 mg by mouth every morning. loratadine (CLARITIN) 10 mg tablet Take 10 mg by mouth every morning. levothyroxine 88 mcg cap Take 88 mcg by mouth every Friday. albuterol HFA (PROVENTIL HFA, VENTOLIN HFA) 90 mcg/actuation inhaler Inhale 2 Puffs as instructed every 4 hours as needed. hydrALAZINE (APRESOLINE) 50 mg tablet Take 1 tablet by mouth two times a day. carvedilol (COREG) 25 mg tablet Take 1 tablet by mouth two times a day. losartan (COZAAR) 100 mg tablet Take 1 tablet by mouth once daily. apixaban (ELIQUIS) 5 mg tab(s) Take 1 tablet by mouth two times a day. EPINEPHrine (EPIPEN) 0.3 mg/0.3 mL auto-injector Use as directed potassium chloride (K-TAB) 10 mEq tablet Take 1 tablet by mouth two times a day. OTC PRODUCT Super Snooze with Melatonin: Take one capsule by mouth at bedtime as needed. acetaminophen 650 mg CR tablet Take 650 mg by mouth every 8 hours as needed. multivitamin/iron/folic acid (CENTRUM ULTRA WOMEN'S ORAL) Take 1 tablet by mouth once daily. No current facility-administered medications for this visit. FAMILY HISTORY Problem Relation Age of Onset Heart Mother Cancer Mother lung Heart Father other (Other) Father Heart Brother [place], aneurysm Migraines Daughter Macular Degen Maternal Aunt Social History Tobacco Use Smoking status: Never Smokeless tobacco: Never Vaping Use Vaping status: Never Used Substance Use Topics Alcohol use: No Drug use: No REVIEW OF SYSTEMS Constitutional: (+) insomnia Head: (+) headache, (+) facial swelling Genitourinary: (+) urinary incontinence Skin: (+) alopecia EXAM: BP 170/78 Pulse 68 Resp 16 SpO2 97% 158/90 - home cuff 164/78 - manual PHYSICAL EXAM: General Appearance: Well appearing, alert, in no acute distress, well-hydrated, well nourished.. Skin: Skin color, texture, turgor normal, no suspicious rashes or lesions. Head: Normocephalic, no masses, lesions, tenderness or abnormalities. Eyes: Anicteric sclera. Extraocular movements are intact. . Lungs: Lungs clear to auscultation. No wheezing, rhonchi, rales.. Heart: RRR without murmur, gallop, or rubs. No ectopy. Neurologic: Gait normal. ASSESSMENT/PLAN 1. Essential hypertension (I10) - Blood pressure readings at home have been significantly elevated. - Currently taking clonidine twice daily and hydralazine twice daily, with an additional dose of hydralazine in the afternoon if systolic BP exceeds 170 mmHg. - Start spironolactone, a potassium-sparing diuretic, to the regimen. Patient instructed to take spironolactone in the morning. - Educated patient on potential side effects of spironolactone, including increased urination and the risk of hyperkalemia. - Ordered blood work to monitor potassium levels after 3-4 days of spironolactone initiation. - Follow-up appointment scheduled in 2 weeks to reassess blood pressure control and review lab results. - Patient and family understand and agree with the treatment plan. Discussed treatment plan and patient voices understanding. Patient's questions answered appropriately. Medications and potential side effects were discussed and patient voices understanding. Return to the office as scheduled or as needed for worsening/no improvement. Gini Ayala APRN.CNP Recording using [employer]elligent[employer] software for draft documentation of the visit was discussed with the patient/authorized access service representative; all questions welcomed and answered. Patient/authorized access service representative agreed to proceed documented in this encounterAcmc Healthcare System06-10-2025 Instructions* Patient Instructions* Judith Pickard APRN.CNP - 03/01/2025 11:50 AM EDT Labs end of February for hematology/ oncology appt. Increase gabapentin to 300 mg in AM, 300 mg mid-day, and 600 mg at bedtime Screening schedule The following prevention plan is recommended: There are no preventive care reminders to display for this patient. WHAT YOU CAN DO TO PREVENT FALLS Many falls can be prevented. By making some changes, you can lower your chances of falling. Four things YOU can do to prevent falls for you* and your caregiver 1. Begin a regular exercise program Exercise is one of the most important ways to lower your chances of falling. It makes you stronger and helps you feel better. Exercises that improve balance and coordination (like Javier Chi) are the most helpful. Lack of exercise leads to weakness and increases your chances of falling. Ask your doctor or health care provider about the best type of exercise program for you. 2. Have your health care provider review your medicines Have your doctor or pharmacist review all the medicines you take, even [id number] medicines. As you get older, the way medicines work in your body can change. Some medicines, or combinations of medicines, can make you sleepy or dizzy andcan cause you to fall. 3. Have your vision checked Have your eyes checked by an eye doctor at least once a year. You may be wearing the wrong glasses or have a condition like glaucoma or cataracts that limits your vision. Poor vision can increase your chances of falling. 4. Make your home safer About half of all falls happen at home. To make your home safer: Remove things you can trip over (like papers, books, clothes, and shoes) from stairs and places where you walk. Remove small throw rugs or use double-sided tape to keep the rugs from slipping. Keep items you use often in cabinets you can reach easily without using a step stool. Have grab bars put in next to your toilet and in the tub or shower. Use non-slip mats in the bathtub and on shower floors. Improve the lighting in your home. As you get older, you need brighter lights to see well. Hang light-weight curtains or shades to reduce glare. Have handrails and lights put in on all staircases. Wear shoes both inside and outside the house. Avoid going barefoot or wearing slippers. For more information, contact: Centers for Disease Control and Prevention www.cdc.gov/injury * This information may not apply if you have certain medical conditions. documented in this encounterAcmc Healthcare System06-10-2025 History of Present illness Narrative* Judith Pickard APRN.CNP - 03/01/2025 11:34 AM EDT Images from the original note were not included. Chief Reason For Appointment No chief complaint on file. Lisa Up is a 79 year old female who presents for annual exam. Last office visit date: 12/28/2024 Accompanied By self only Have you had any critical events, hospital stays, ER visits, surgeries or procedures since your last visit here in our office: Yes Fell twice. ER visits and ER, second time required rehab. Specialists/Other Healthcare Providers Seen: Patient Care Team: Sylvia Lizama MD as PCP - General (Family Medicine) Rene Do DO as Referring (Physical Medicine and Rehab) Chinyere Shea, FRANCESCO as Specialty 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 (Hematology/Oncology) Enid Rod LISW as Foreman/Pile Driving [employer] Erection (Hematology/Oncology) Prince Fang MD (Hematology/Oncology) [facility] (Inactive) (Optometry) Gini Ayala APRN.LEONCIO as Florist'S Decorator (Family Medicine) Judith Pickard APRN.LEONCIO as Florist'S Decorator (Family Medicine) Concerns today: Legs swell and feel numb- sharp shooting pains HPI Lisa Up is an 79-year-old female with a history of neuropathy, presenting for evaluation of bilateral lower extremity edema, numbness, and tremors. Lower Extremity Edema and Numbness: - Bilateral lower extremity edema and numbness, primarily from the knees down. - Edema severe enough to leave sock lines. - Consumes approximately 28-32 oz of water daily, along with 1-2 cups of coffee and occasional josie jluis. - Diet consists of one meal per day, sometimes less, with occasional consumption of sweets. - Recent weight gain noted. - Denies dyspnea, cough, or wheezing. - No recent fever or chills since COVID-19 infection. - No chest pain or palpitations in the past few days. - No nausea, emesis, or hematuria. - No excessive thirst or syncope. Neuropathy: - Sharp, shooting pains in the legs. - One leg is shorter than the other, believes this contributes to pain. - Currently taking gabapentin BID; reports worsening symptoms when previously discontinued. - Denies adverse effects from gabapentin. Tremors: - Bilateral hand tremors, more pronounced in one hand. - Tremors interfere with holding objects and are described as embarrassing. - Family history of tremors; father had Parkinson's disease. Chronic Diarrhea and Constipation: - Alternating episodes of diarrhea and constipation. - Previously took medication for these symptoms but was advised to let them run their course. Recent Falls: - Two falls in the past year, resulting in emergency room visits and hospital stays. - Required rehabilitation in a senior care after the second fall. - Denies recent surgeries. Hearing Loss: - Reports hearing loss in both ears. Scoliosis: - Noted by daughter, who reports asymmetry in [place] back, with one side appearing larger than the other. - No associated pain reported. Hypothyroidism: - Managed with medication. - Recent thyroid levels were normal. Advanced Directives: - Has a living will, with daughter designated to make decisions if necessary. 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 Was improving. Bilateral Carotid Artery Stenosis - 05/03/2019 Comment: Mild. Recheck in 05/11 Diarrhea - 08/04/2018 [place] (Obstructive Sleep Apnea) - 01/17/2017 Comment: Not treating. Essential Tremor - 01/14/2017 Spinal Stenosis, Lumbar Region, With Neurogenic Claudication - 02/22/2016 Meibomian Gland Dysfunction (Mgd) 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 - 09/28/2015 Ocular Hypertension, Bilateral - 08/16/2015 Optic Disc Cupping - 08/16/2015 Combined Forms of Age-Related Cataract of Both Eyes - 08/16/2015 Dry Eye Syndrome - 08/16/2015 Vitreous Floaters of Both Eyes - 08/16/2015 Tinnitus of Both Ears - 08/17/2013 Anxiety With Depression - 01/15/2012 Nontoxic Multinodular Goiter - 01/01/2011 Mixed Incontinence Urge and Stress - 12/19/2010 Allergic Rhinitis - 06/12/2009 Essential Hypertension - 06/07/2005 Comment: 12/09/2022: Home BP Cuff Validated. Home BP: 189/98 Office BP: 182/82 Generalized Osteoarthrosis, Unspecified Site - 06/07/2005 Hyperlipidemia, Unspecified - 06/07/2005 Body Mass Index (Bmi) 40.0-44.9, Adult (Hcc) - 06/07/2005 Other Specified Idiopathic Peripheral Neuropathy - 06/07/2005 ROS: Constitutional: (+) weight gain, (+) decreased appetite, (-) fever, (-) chills Head: (-) headaches Eyes: (+) vision changes Ears/Nose/Mouth/Throat: (+) hearing changes Cardiovascular: (+) peripheral edema Respiratory: (-) shortness of breath, (-) cough, (-) wheeze, (-) orthopnea Gastrointestinal: (+) diarrhea, (+) constipation, (-) nausea, (-) vomiting Genitourinary: (-) dysuria, (-) hematuria Musculoskeletal: (+) leg pain, (+) knee joint pain, (+) foot pain, (+) knee instability Neurological: (+) numbness in feet and legs, (+) hand tremor, (-) seizures, (-) syncope Psychiatric: (-) suicidal ideation Endocrine: (-) polydipsia PAST MEDICAL HISTORY Diagnosis Date ANXIETY STATE NOS 06/07/2005 Arthritis Cancer (HCC) Carpal tunnel syndrome 06/07/2005 Cholelithiasis 06/17/2012 DEPRESSIVE DISORDER NEC 06/07/2005 Diverticulosis of colon (without mention of hemorrhage) Dizziness and giddiness 02/26/2010 GENERAL OSTEOARTHROSIS 06/07/2005 Goiter, unspecified 12/11/2010 Headache(784.0) 02/26/2010 Chronic. 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 Ramírez, severe PAST SURGICAL HISTORY Procedure Laterality Date ABDOMINAL SURGERY HX ARTHRP KNE CONDYLE&PLATU MEDIAL&LAT COMPARTMENTS February2010 Knee replacement, total, Left ARTHRP KNE CONDYLE&PLATU MEDIAL&LAT COMPARTMENTS 07/2010 Knee replacement, total, Right BACK SURGERY HX COLONOSCOPY FLX DX W/COLLJ SPEC WHEN PFRMD 06/05/2011 Colonoscopy COLONOSCOPY FLX DX W/COLLJ SPEC WHEN PFRMD N/A 12/04/2016 ESOPHAGOGASTRODUODENOSCOPY TRANSORAL DIAGNOSTIC N/A 12/04/2016 DEVORA FILTER 2019 INSJ TUNNELED CTR VAD W/SUBQ PORT AGE 5 YR/> 06/05/2022 JOINT REPLACEMENT HX L'SCOPE CHOLECYSTECTOMY 07/30/2022 Dr Gonzalez NEPHRECTOMY PARTIAL 1986 Nephrectomy, partial left (benign) PAST SURGICAL HISTORY OF 06/2018 lumbar burger with wound infection TONSILLECTOMY HX TOTAL ABDOMINAL HYSTERECT W/WO RMVL TUBE OVARY 1985 Hysterectomy, NEISHA VAGINAL HYSTERECTOMY Medication List Current Outpatient Medications Medication Sig Dispense Refill levothyroxine (SYNTHROID) 75 mcg tablet Take 1 tablet by mouth daily before breakfast. 90 tablet 3 gabapentin (NEURONTIN) 300 mg capsule Take 1 capsule by mouth once daily for 180 days. 90 capsule 1 cloNIDine HCl (CATAPRES) 0.1 mg tablet Take 0.1 mg by mouth two times a day. meclizine (ANTIVERT) 25 mg tab Take 25 mg by mouth three times a day. pantoprazole DR (PROTONIX) 20 mg tablet Take 20 mg by mouth every morning. loratadine (CLARITIN) 10 mg tablet Take 10 mg by mouth every morning. levothyroxine 88 mcg cap Take 88 mcg by mouth every Friday. albuterol HFA (PROVENTIL HFA, VENTOLIN HFA) 90 mcg/actuation inhaler Inhale 2 Puffs as instructed every 4 hours as needed. hydrALAZINE (APRESOLINE) 50 mg tablet Take 1 tablet by mouth two times a day. 180 tablet 3 carvedilol (COREG) 25 mg tablet Take 1 tablet by mouth two times a day. 180 tablet 3 losartan (COZAAR) 100 mg tablet Take 1 tablet by mouth once daily. 90 tablet 3 apixaban (ELIQUIS) 5 mg tab(s) Take 1 tablet by mouth two times a day. 180 tablet 3 EPINEPHrine (EPIPEN) 0.3 mg/0.3 mL auto-injector Use as directed 2 Each 1 potassium chloride (K-TAB) 10 mEq tablet Take 1 tablet by mouth two times a day. 180 tablet 3 OTC PRODUCT Super Snooze with Melatonin: Take one capsule by mouth at bedtime as needed. acetaminophen 650 mg CR tablet Take 650 mg by mouth every 8 hours as needed. multivitamin/iron/folic acid (CENTRUM ULTRA WOMEN'S ORAL) Take 1 tablet by mouth once daily. No current facility-administered medications for this visit. Weight Summary: Weight Change: Body mass index is 44.63 kg/m . Last Wt 03/01/25 : 110.7 kg (244 lb) 12/28/24 : 109.3 kg (241 lb) 12/10/24 : 109.3 kg (241 lb) 11/12/24 : 108.9 kg (240 lb) 11/01/24 : 110 kg (242 lb 8.1 oz) Physical Exam: GENERAL: NAD, alert and oriented. SKIN: Unremarkable, no rash or skin lesions. HEAD: Normocephalic. EYES: PERRLA, EOMI, conjunctiva clear. EARS: External ears normal, canals clear, TM's opaque bilaterally. NOSE/SINUSES: Nares normal. Septum midline. OROPHARYNX: Lips, mucosa, and tongue normal, good dentition. No oral lesions noted. NECK: Supple, no lymphadenopathy, normal thyroid, no carotid bruits. LUNGS: Clear to auscultation bilaterally, no wheezes/rhonchi/rales. HEART: Regular rate and rhythm, no murmurs. No ectopy. EXTREMITIES: No deformities, no skin discoloration, edema noted. NEURO: Awake, alert and oriented x3, cranial nerves II-XII grossly intact, normal gait, no involuntary motions. Essential tremor noted. Left side of abdomen- back very large mass SCREENINGS Health Maintenance Listing Shingrix Vaccine(1 of 2) RSV Vaccine(1 - 1-dose 75+ series) Advance Directive Discussion TEST RESULTS: Lab Studies: Date of lab studies: Labs: - (December) Thyroid function test: Normal - (October) Protein level: Slightly low - (August) Protein level: Low - glucose - potassium - Creatinine, gfr - LFTs Lipid: WBC, H&H, Platelets: A1C: Vitamin D: Other: A/P: 1. Neuropathy (G62.9) - Experiencing numbness and sharp pains in the legs, likely exacerbated by edema. - Current medication: Gabapentin, previously taken twice daily. - Increased Gabapentin dosage to 300 mg TID and 600 mg at bedtime to manage neuropathic pain and essential tremor. - Discussed potential side effects of Gabapentin, including mild edema. 2. Initial Medicare annual wellness visit (Z00.00) - Completed comprehensive review of systems and physical examination. - Discussed advanced directives; patient has a living will. - Declined shingles and RSV vaccines. - Advised to schedule an eye examination. 3. Screening for cholesterol level (Z13.220) - Ordered lipid panel. 4. Screening for diabetes mellitus (Z13.1) - Ordered HbA1c. 5. Cognitive changes (R41.89) - Noted difficulty with memory recall during visit. - Will monitor cognitive function; no immediate interventions required. 6. Mixed hyperlipidemia (E78.2) - Continue current management. - Awaiting results from ordered lipid panel. 7. B-cell lymphoma, unspecified B-cell lymphoma type, unspecified body region (HCC) (C85.10) - scheduled for CT chest/ abd. And pelvis 8. Debility (R53.81) - Noted decreased appetite and inadequate protein intake contributing to edema. - Recommended increasing dietary protein through foods and supplements like [place] Breakfast Essentials. - Discussed the importance of adequate nutrition in managing edema and overall health. 9. Chronic kidney disease, unspecified CKD stage (N18.9) - check CMP & Mag 10. Hypothyroidism, unspecified type (E03.9) - Recent thyroid function tests in December were normal. - Continue current thyroid medication. 11. Spinal stenosis, lumbar region, with neurogenic claudication (M48.062) - increase gabapentin 300- 300- 600 mg Discussed treatment plan and patient voices understanding. Patient's questions answered appropriately. Medications and potential side effects were discussed and patient voices understanding. Return to the office as scheduled or as needed for worsening/no improvement. Follow Up Plans: 6 m Lisa Up is a 79 year old female here for a Medicare wellness visit. Medicare Health Risk Assessment General Health Fair Exercise: Minutes/Day 60 min Exercise: Days/Week 3 days Alcohol: Daily Use Never Alcohol: Drinks/Day Patient does not drink Alcohol: 6 or more drinks Never Feel off balance Yes (has a walker) Concerns: Teeth/Dentures Yes Concerns: Sexual function No Troubled by feelings Anxious Frequency: Eating healthy diet Several days ADLs requiring help Grocery shopping; Cooking Safety precautions in home/vehicle Yes Smoke, vape, chews tobacco No Difficulty hearing Yes Difficulty seeing No Current Providers Specialists: I have reviewed specialist-related care of the patient in the medical record. Medical/Family history review Reviewed and updated problem list, medical/surgical/family/social history, medications, and allergies. Opioid use review Opioid Medications (last 90 days) No data to display Anxiety/Depression screening PHQ-2 Score: 1 (Lower risk for depression) Recommendation: continuing current treatment plan Cognitive screening Mini Cog Score: 4 Cognitive screening reviewed and Patient has known cognitive impairment. Functional Observation Was the patient's Timed Up & Go test unsteady or >= 12 seconds? Yes Advance Care Planning Surrogate decision maker and/or advance care plan documented Measurements BP 124/66 Pulse 64 Wt 110.7 kg (244 lb) SpO2 96% BMI 44.63 kg/m Vision Screening: Follows with optometry/ophthalmology Assessment/Plan Medicare annual wellness visit, subsequent (Z00.00) - Counseled on healthy diet and regular exercise - Fall avoidance information provided - Personalized prevention plan provided documented in this encounterAcmc Healthcare System06-05-2025 History of Present illness Narrative* Harini Martinez RN - 02/24/2025 11:46 AM EDT Value Based Care Coordination Chart Review Provider Action / FYI: Upon review of patient chart, the patient is excluded from Chronic Disease Management Patient is not a candidate for CDM at this time and placed in the following status: Deferred Action taken: No action needed . Harini Martinez RN February 24, 2025 11:47 AM documented in this encounterAcmc Healthcare System04-08-2025 History of Present illness Narrative* Sylvia Lizama MD - 12/28/2024 3:51 PM EDT Patient presents with: Hospital F/U HPI: Patient presents today for office visit [facility] follow up. In [facility] 11/27-12/01 and then in [facility] from 12/01 to 12/15-13 days ago. Resumed chemo and feeling week. Then got covid. Soon after had a fall at home and was found laying on floor. Had uti and was very week and could not eat. Admitted for snf placement and rehab. Initially was on ceftriaxone and then switched to oral antibiotics. Began therapies in facility. Declined further therapy at home. No current uti symptoms. No fever Has followed with Dr. Masci. Is much stronger. Is walking back near to her baseline. No chest pain or shortness of breath. They had stopped gabapentin and put her on tylenol. Has neuropathy pain. No fall since home. Using her walker. Appetite is better. No skin issues. No bowel issues. No current chemo planned. Has upcoming ct scan in a few months to reassess and see if improving. Her eyes are bothering her recently. They are dry and irritated at times. No redness or drainage currently For several weeks. Suggested artifical tears and follow with her eye doctor. No vision issues. Bp is ok now. Has chronic urinary incontinence. Was on meds at one point in time with no improvement. Has had issues since her back surgery. Not sure how much can be helped. MEDICATIONS: Current Outpatient Medications Medication Sig cloNIDine HCl (CATAPRES) 0.1 mg tablet Take 0.1 mg by mouth two times a day. meclizine (ANTIVERT) 25 mg tab Take 25 mg by mouth three times a day. pantoprazole DR (PROTONIX) 20 mg tablet Take 20 mg by mouth every morning. loratadine (CLARITIN) 10 mg tablet Take 10 mg by mouth every morning. levothyroxine 88 mcg cap Take 88 mcg by mouth every Friday. albuterol HFA (PROVENTIL HFA, VENTOLIN HFA) 90 mcg/actuation inhaler Inhale 2 Puffs as instructed every 4 hours as needed. hydrALAZINE (APRESOLINE) 50 mg tablet Take 1 tablet by mouth two times a day. carvedilol (COREG) 25 mg tablet Take 1 tablet by mouth two times a day. losartan (COZAAR) 100 mg tablet Take 1 tablet by mouth once daily. apixaban (ELIQUIS) 5 mg tab(s) Take 1 tablet by mouth two times a day. levothyroxine (SYNTHROID) 75 mcg tablet Take 1 tablet by mouth daily before breakfast. EPINEPHrine (EPIPEN) 0.3 mg/0.3 mL auto-injector Use as directed potassium chloride (K-TAB) 10 mEq tablet Take 1 tablet by mouth two times a day. OTC PRODUCT Super Snooze with Melatonin: Take one capsule by mouth at bedtime as needed. acetaminophen 650 mg CR tablet Take 650 mg by mouth every 8 hours as needed. multivitamin/iron/folic acid (CENTRUM ULTRA WOMEN'S ORAL) Take 1 tablet by mouth once daily. No current facility-administered medications for this visit. ALLERGIES: ALLERGIES Allergen Reactions Covid-19 Vaccine, M* Anaphylaxis Adhesive Rash Blisters and dermatitis from op site dressing and tape Erythromycin Rash, GI Upset Urticarial rash, seen in [place] [facility] Latex Swelling Lisinopril Swelling Nafcillin Itching 06/29/21 negative penicillin skin testing. Passed oral amoxicillin challenge. Nifedipine Rash Norvasc [Amlodipine* Swelling Wasps Mental Status Change, Rash PAST MEDICAL HISTORY Diagnosis Date ANXIETY STATE NOS 06/07/2005 Arthritis Cancer (HCC) Carpal tunnel syndrome 06/07/2005 Cholelithiasis 06/17/2012 DEPRESSIVE DISORDER NEC 06/07/2005 Diverticulosis of colon (without mention of hemorrhage) Dizziness and giddiness 02/26/2010 GENERAL OSTEOARTHROSIS 06/07/2005 Goiter, unspecified 12/11/2010 Headache(784.0) 02/26/2010 Chronic. 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 Ramírez, severe PAST SURGICAL HISTORY Procedure Laterality Date ABDOMINAL SURGERY HX ARTHRP KNE CONDYLE&PLATU MEDIAL&LAT COMPARTMENTS February2010 Knee replacement, total, Left ARTHRP KNE CONDYLE&PLATU MEDIAL&LAT COMPARTMENTS 07/2010 Knee replacement, total, Right BACK SURGERY HX COLONOSCOPY FLX DX W/COLLJ SPEC WHEN PFRMD 06/05/2011 Colonoscopy COLONOSCOPY FLX DX W/COLLJ SPEC WHEN PFRMD N/A 12/04/2016 ESOPHAGOGASTRODUODENOSCOPY TRANSORAL DIAGNOSTIC N/A 12/04/2016 DEVORA FILTER 2019 INSJ TUNNELED CTR VAD W/SUBQ PORT AGE 5 YR/> 06/05/2022 JOINT REPLACEMENT HX L'SCOPE CHOLECYSTECTOMY 07/30/2022 Dr Gonzalez NEPHRECTOMY PARTIAL 1986 Nephrectomy, partial left (benign) PAST SURGICAL HISTORY OF 06/2018 lumbar burger with wound infection TONSILLECTOMY HX TOTAL ABDOMINAL HYSTERECT W/WO RMVL TUBE OVARY 1985 Hysterectomy, NEISHA VAGINAL HYSTERECTOMY FAMILY HISTORY Problem Relation Age of Onset Heart Mother Cancer Mother lung Heart Father other (Other) Father Heart Brother [place], aneurysm Migraines Daughter Macular Degen Maternal Aunt Social History Tobacco Use Smoking status: Never Smokeless tobacco: Never Vaping Use Vaping status: Never Used Substance Use Topics Alcohol use: No Drug use: No Reviewed current medications, allergies, past medical history, surgical history, family history andsocial history today. REVIEW OF SYSTEMS Has worsening tremors. Her father had parkinson's. She does have unsteady gait. All other reviewed and negative other than HPI. VITALS: BP 134/70 Pulse 75 Ht 157.5 cm (5' 2) Wt 109.3 kg (241 lb) SpO2 98% BMI 44.08 kg/m Last 4 Encounter Wt Readings: Date: Wt: 12/10/2024 109.3 kg (241 lb) 11/12/2024 108.9 kg (240 lb) 11/01/2024 110 kg (242 lb 8.1 oz) 10/08/2024 110.7 kg (244 lb) PHYSICAL EXAMINATION: General appearance: Well appearing, alert, in no acute distress, well-hydrated, well nourished. Skin: Skin color, texture, turgor normal, no suspicious rashes or lesions Head: Normocephalic, no masses, lesions, tenderness or abnormalities Eyes: Anicteric sclera. Pupils are equally round and reactive to light. Extraocular movements are intact. , perrla. Red flags for re-assessment reviewed with patient in detail. Lungs: Lungs clear to auscultation. No wheezing, rhonchi, rales Heart: RRR without murmur, gallop, or rubs. No ectopy Abdomen: Normal abdominal exam, Abdomen soft, non-tender. Bowel sounds normal. No masses, organomegaly Extremities: No deformities, edema, skin discoloration, clubbing or cyanosis. Good capillary refill. Musculoskeletal: No joint swelling, deformity, or tenderness ASSESSMENT/PLAN: 1. Urinary tract infection without hematuria, site unspecified - ICD9: 599.0, ICD10: N39.0 (primarydiagnosis) - finish antibiotic. Call if any issues. 2. Debility - ICD9: 799.3, ICD10: R53.81 - stable. 3. Essential hypertension - ICD9: 401.9, ICD10: I10 - Controlled - Continue current medications 4. Mixed hyperlipidemia - ICD9: 272.2, ICD10: E78.2 - Controlled - Continue current medications 5. Chronic kidney disease, unspecified CKD stage - ICD9: 585.9, ICD10: N18.9 - stable. 6. Hypothyroidism, unspecified type - ICD9: 244.9, ICD10: E03.9 - has tsh pending. 7. B-cell lymphoma, unspecified B-cell lymphoma type, unspecified body region (HCC) - ICD9: 202.80,ICD10: C85.10 - per Dr Quintero. 8. 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 9. Spinal stenosis, lumbar region, with neurogenic claudication - ICD9: 724.03, ICD10: M48.062 - stable. 10. Anxiety with depression - ICD9: 300.4, ICD10: F41.8 - stable. 11. Body mass index (BMI) 40.0-44.9, adult (HCC) - ICD9: V85.41, ICD10: Z68.41 Watch diet. 12. Neuropathy - ICD9: 355.9, ICD10: G62.9 - resume meds. - GABAPENTIN 300 MG CAPSULE 13. Termor Recommended neurology. Will consider. 14. Urinary incontinence. Requests urology Sylvia Lizama MD documented in this encounterA[facility]04-[facility]25 Telephone encounter Note * Telephone Encounter - Mercy Mendez RN - 12/23/2024 11:22 AM EDT Phoned pt and scheduled [facility] f/u appt for 12/28/24 w/Dr. Lizama. [facility]04-03-[facility]25 Miscellaneous Notes* Telephone Encounter - Mercy Mendez RN - 12/23/2024 11:22 AM EDT Phoned pt and scheduled [facility] f/u appt for 12/28/24 w/Dr. Lizama. * Telephone Encounter - Talia Silver LPN - 12/20/2024 11:27 AM EDT Printed her discharge paperwork from [facility] for review. * Telephone Encounter - Mercy Mendez RN - 12/20/2024 8:50 AM EDT Pt phoned b/c she has elevated BP this mornin/87 and 200/100 and she was feeling weak. Reports she hasn't eaten or drank any fluids yet and has not taken any BP medications yet this morning. Advised to drink a glass of water and pt agreeable. Reports she hadn't had any fluids since last nightat 8 pm. Reports she slept good last night. Reports she had about 5 diarrhea stools yesterday. Reports last diarrhea stool was about 8 pm last night. Advised pt to avoid dairy, raw fruits/veg, and citrus if continues to have diarrhea. Pt agreeable. Advised to get plenty of clear liquids. Pt reports she was discharged from [facility] [place] on 12/17/24. Reports she was there for 2 weeks for rehab, for weakness. Reports she spent 2 weeks in [facility] prior to that. States she is not really sure how long she was at [facility]. Reports she was admitted to [facility] for covid and UTI. Attempted to do TCM. Pt stated she is not sure of dates. Pt reports none of her medications were changed or discontinued. We were on the phone about 45 min. During that time pt had taken her BP medication. At end of conversation pt's BP came down to 145/72 (68). Reports her BP was high last evening, 220/100 and she tookan xtra hydralazine. Reports after a few hours the BP came down to 133/88. Pt will go get something to eat and drink and speak with her daughter and call back to schedule Hosp f/u appt for TCM. documented in this encounterAcmc Healthcare System03-31-2025 Telephone encounter Note * Telephone Encounter - Talia Silver LPN - 12/20/2024 11:27 AM EDT Printed her discharge paperwork from [facility] for review. [facility]03-[facility] Telephone encounter Note* Telephone Encounter - Mercy Mendez RN - 12/20/2024 8:50 AM EDT Pt phoned b/c she has elevated BP this mornin/87 and 200/100 and she was feeling weak. Reports she hasn't eaten or drank any fluids yet and has not taken any BP medications yet this morning. Advised to drink a glass of water and pt agreeable. Reports she hadn't had any fluids since last nightat 8 pm. Reports she slept good last night. Reports she had about 5 diarrhea stools yesterday. Reports last diarrhea stool was about 8 pm last night. Advised pt to avoid dairy, raw fruits/veg, and citrus if continues to have diarrhea. Pt agreeable. Advised to get plenty of clear liquids. Pt reports she was discharged from [facility] on 12/17/24. Reports she was there for 2 weeks for rehab, for weakness. Reports she spent 2 weeks in [facility] prior to that. States she is not really sure how long she was at [facility]. Reports she was admitted to [facility] for covid and UTI. Attempted to do TCM. Pt stated she is not sure of dates. Pt reports none of her medications were changed or discontinued. We were on the phone about 45 min. During that time pt had taken her BP medication. At end of conversation pt's BP came down to 145/72 (68). Reports her BP was high last evening, 220/100 and she tookan xtra hydralazine. Reports after a few hours the BP came down to 133/88. Pt will go get something to eat and drink and speak with her daughter and call back to schedule Hosp f/u appt for TCM. [facility]03-[facility] History of Present illness Narrative* Mercy Mendez RN - 12/20/2024 8:34 AM EDT TRANSITION CARE MANAGEMENT (TCM) INITIAL CONTACT Gas Operations Superintendent Outreach Provider Action/FYI: Pt was in [facility] for 2 weeks, then discharged to [facility] (on 12/01/24) and was there for 2 weeks. Pt unsure of the dates, and unsure how long she was in [facility]. States she will ask her daughter and call back. Pt states she will schedule f/u appt after she talks to her daughter. Initial contact with patient post discharge, spoke to patient. Patient identified by name and . TRANSITION CARE MANAGEMENT INITIAL OUTREACH DOCUMENTATION: 12/20/2024 Date of Outreach: Outreach Attempt 1: Contact Made Date of Discharge 12/17/2024 SUMMARY: -Pt discharged from [facility] on 12/17/24. -Admitted for: Rehab- weakness. Do you have a hospital follow up appointment with your PCP? Appointment on 12/28/[address] Lizama. Yes. Remind patient of appointment date, time, and location. If not within 14 calendar days of discharge - please reschedule accordingly. MEDICATIONS: Many patients have questions or concerns about their medications once they are home. Were you prescribed any new medications? No Were you told to hold any medications? No Were any of your medications discontinued? No. Reports doctor did discontinue gabapentin then added one pill back on and instructed pt to taketylenol Do you have any questions about getting or taking your medications? No Your discharge instructions/After visit Summary (AVS) are important in guiding you through the recovery process. Is there anything I might help you understand? No Do you have all the necessary equipment and supplies at home? Yes Medical records from recent hospitalization: Office printed [facility] discharge paperwork. documented in this encounterAcmc Healthcare System03-21-2025 History of Present illness Narrative* César Quintero DO - 12/10/2024 9:00 AM EDT Oncologic problem(s): 1) Follicular lymphoma. HPI: Lisa Up is an 79 year old female who presents here today for follow up lymphoma. H/o swelling in her neck and chest tightness who presented with an abnormal CT scan of the neck andchest. She had generalized adenopathy involving her supraclavicular, bilateral axillary, and subcarinal regions. 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 Removal of her prosthesis because of recurrent infection. She had no unexplained weight loss or increased fatigue. She had multiple transfusions in the past from her surgery. She denied history of hepatitis or HIV infection. 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 FINAL DIAGNOSIS A. 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 - See comment. Flow cytometric analysis of the bone marrow aspirate reveals that 15% of total events have the IO69wop side scatter properties of lymphocytes. Interpretation: The lymphocytes are composed of a mixture of T cells (58%; CD4:CD8 ratio = 1.15), NK cells (4%) andB cells (34%). The majority of the B cells display an abnormal immunophenotype, and are positive for CD19, CD20 (bright), CD45 and kappa surface light chain. The B cells are negative for CD5, CD10 and the the remaining markers tested. CD200 could not be interpreted on the abnormal B cells due to nonspecific staining. Granulocytic elements are 64% of the events. Blasts are not increased. The findings are diagnostic of involvement by a B-cell lymphoproliferative disorder. Previous treatment: Rituximab -Bendamustine (started on 06/27/2022) She completed 2 cycle of chemotherapy in August 2022, unfortunately she had acute cholecystitis and subsequently had a laparoscopic cholecystectomy. OV : She has been having more numbness in her legs due to complications of her previous back surgery. Uses a walker. Also has fluctuating symptoms of disequilibrium. No abdominal pain. Fatigued. Presents for ongoing oncologic management. Interim history: Competed rituximab weekly x4 10/08/2024. Treated for UTI. Subsequent sinusitis and bronchitis--Augmentin. Covid 11/12/2024. In skilled care now. Gradually improving. Fatigued. PAST MEDICAL HISTORY Diagnosis Date ANXIETY STATE NOS 06/07/2005 Arthritis Cancer (HCC) Carpal tunnel syndrome 06/07/2005 Cholelithiasis 06/17/2012 DEPRESSIVE DISORDER NEC 06/07/2005 Diverticulosis of colon (without mention of hemorrhage) Dizziness and giddiness 02/26/2010 GENERAL OSTEOARTHROSIS 06/07/2005 Goiter, unspecified 12/11/2010 Headache(784.0) 02/26/2010 Chronic. 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 Ramírez, severe PAST SURGICAL HISTORY Procedure Laterality Date ABDOMINAL SURGERY HX ARTHRP KNE CONDYLE&PLATU MEDIAL&LAT COMPARTMENTS February2010 Knee replacement, total, Left ARTHRP KNE CONDYLE&PLATU MEDIAL&LAT COMPARTMENTS 07/2010 Knee replacement, total, Right BACK SURGERY HX COLONOSCOPY FLX DX W/COLLJ SPEC WHEN PFRMD 06/05/2011 Colonoscopy COLONOSCOPY FLX DX W/COLLJ SPEC WHEN PFRMD N/A 12/04/2016 ESOPHAGOGASTRODUODENOSCOPY TRANSORAL DIAGNOSTIC N/A 12/04/2016 WENDEL FILTER 2019 INSJ TUNNELED CTR VAD W/SUBQ PORT AGE 5 YR/> 06/05/2022 JOINT REPLACEMENT HX L'SCOPE CHOLECYSTECTOMY 07/30/2022 Dr Gonzalez NEPHRECTOMY PARTIAL 1986 Nephrectomy, partial left (benign) PAST SURGICAL HISTORY OF 06/2018 lumbar burger with wound infection TONSILLECTOMY HX TOTAL ABDOMINAL HYSTERECT W/WO RMVL TUBE OVARY 1985 Hysterectomy, NEISHA VAGINAL HYSTERECTOMY ALLERGIES Allergen Reactions Covid-19 Vaccine, M* Anaphylaxis Adhesive Rash Blisters and dermatitis from op site dressing and tape Erythromycin Rash, GI Upset Urticarial rash, seen in [place] ER Latex Swelling Lisinopril Swelling Nafcillin Itching 06/29/21 negative penicillin skin testing. Passed oral amoxicillin challenge. Nifedipine Rash Norvasc [Amlodipine* Swelling Wasps Mental Status Change, Rash Current Outpatient Medications Medication Sig albuterol HFA (PROVENTIL HFA, VENTOLIN HFA) 90 mcg/actuation inhaler Inhale 2 Puffs as instructed every 4 hours as needed. amoxicillin-clavulanate potassium (AUGMENTIN) 875-125 mg per tablet Take 1 tablet by mouth every 12hours. hydrALAZINE (APRESOLINE) 50 mg tablet Take 1 tablet by mouth two times a day. hydrALAZINE (APRESOLINE) 50 mg tablet Take 1 tablet by mouth two times a day. carvedilol (COREG) 25 mg tablet Take 1 tablet by mouth two times a day. gabapentin (NEURONTIN) 400 mg capsule Take 1 capsule by mouth two times a day for 180 days. PARoxetine (PAXIL) 10 mg tablet Take 1 tablet by mouth once daily. omeprazole (PRILOSEC) 20 mg capsule Take 1 capsule by mouth once daily. iv contrast (will be provided with radiology test) CT Chest W -Inject, intravenously, once for 1 dose.No IV access, insert saline lock prior to the beginning of sedation, infusion, injection of imaging exam. Discontinue saline lock post exam. If Pt. has a central line or IVAD, may access for administration according to line specific nursing protocol. Once exam is complete flush line and de-accessaccording to line specific nursing protocol in the CT contrast administration guidelines link. enteric contrast (will be provided with radiology test) For CT ABD/PEL W IVCON Routine order Administer, As Directed One Time Only, via Oral, Rectal, both Oral and Rectal, Enteric Tube, Stoma or Indwelling Catheter, Enteric Contrast as designated per enteric contrast guidelines atogepant (QULIPTA) 60 mg tablet Take 1 tablet (60 mg) by mouth once daily. rimegepant (NURTEC ODT) 75 mg disintegrating tablet Take 1 tablet by mouth once daily as needed. phenazopyridine (PYRIDIUM) 200 mg tablet Take 1 tablet by mouth three times a day as needed. losartan (COZAAR) 100 mg tablet Take 1 tablet by mouth once daily. apixaban (ELIQUIS) 5 mg tab(s) Take 1 tablet by mouth two times a day. levothyroxine (SYNTHROID) 75 mcg tablet Take 1 tablet by mouth daily before breakfast. EPINEPHrine (EPIPEN) 0.3 mg/0.3 mL auto-injector Use as directed potassium chloride (K-TAB) 10 mEq tablet Take 1 tablet by mouth two times a day. OTC PRODUCT Super Snooze with Melatonin: Take one capsule by mouth at bedtime as needed. acetaminophen 650 mg CR tablet Take 650 mg by mouth every 8 hours as needed. multivitamin/iron/folic acid (CENTRUM ULTRA WOMEN'S ORAL) Take 1 tablet by mouth once daily. No current facility-administered medications for this visit. Social History Tobacco Use Smoking status: Never Smokeless tobacco: Never Vaping Use Vaping status: Never Used Substance Use Topics Alcohol use: No Drug use: No Family History Problem Relation Age of Onset Heart Mother Cancer Mother lung Heart Father other (Other) Father Heart Brother [place], aneurysm Migraines Daughter Macular Degen Maternal Aunt ROS: Constitutional: No fevers. Neuro: See above. HEENT: No recent change in voice, vision or hearing. Resp: No cough, wheeze of hemoptysis. No shortness of breath at rest. CVS: No exertional chest pain. GI: No n/v, change in bowel habits. : No dysuria or gross hematuria. Urinary stress incontinence. Endo: No hot flashes. Derm: No current rash. Heme: No unusual bleeding and unexplained bruising. Psych: Normal mood. PHYSICAL EXAM: Vitals: Blood pressure 100/62, pulse 70, temperature 36.6 C (97.8 F), temperature source Temporal, weight 109.3 kg (241 lb), SpO2 96%. Fatigued appearing and in no acute distress. EYES: Sclerae are anicteric bilaterally. LYMPHATIC: There is no palpable cervical, supraclavicular, axillary adenopathy. CARDIOVASCULAR: Rhythm is regular. ABDOMEN: The abdomen is nondistended. Extremities: No swelling or edema. SKIN: No jaundice. ASSESSMENT/PLAN: 1. 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 -CR following 2 cycles of BR. -Recent therapy with rituximab indicated due the mild hydronephrosis likely caused by adenopathy. -Reviewed CT findings. OH with resolution hydronephrosis. -Discussed plan to monitor with CTs in about 3-4 months. -Can retreat with rituximab if PD and indication for therapy. Plan: -CBC/CMP/LDH CTs then OV with MECHANICAL CAD DRAFTER in about 3-4 months. Portions of this documentation were copied and pasted from my previous office visit note dated 09/03/2024 in order to provide a cohesive continuity of the history. The note has been reviewed and edited and updated as necessary. César Quintero DO documented in this encounterAcmc Healthcare System03-19-2025 History of Present illness Narrative* Helen Corey MA - 12/08/2024 1:11 PM EDT POPULATION HEALTH NAVIGATION OUTREACH Action/FYI Spoke to Lisa. She at [facility] for COVID and UTI,. Topic Due (Y or N) Comments Medicare Wellness Y PCP Follow up Colorectal Cancer Screening Controlling Blood Pressure A1C HCC Y Flu Vaccine Y Care Everywhere Reviewed MyChart Activation Updated Appointment Note Reason for Outreach Care Gap/HCC or Scheduling Wellness Visits Care Gaps due: Medicare Annual Wellness Visit Flu Vaccine Patient Contacted: Spoke to patient/parent/or legal guardian Patient identified by name and : Yes Care Gap/HCC/Scheduling Wellness actions taken: Patient declined: Patient requested call back from navigator/ will call navigator back HCC related pt is at [facility] Navigation Signature: Helen Corey MA December 08, 2024 1:11 PM documented in this encounterAcmc Healthcare System03-12-2025 [facility] Medical Records Department [address] [place] [id number] Discharge Summary 12/01/24 1550 MR#: [id number] Acct: [id number] Name: LISA UP Rep #: [id number] : [id number] 79 From: Kenyon Joiner MD PCP: Dr. Sylvia Lizama MD Status:DIS [id number] Prov[facility] Date of Admission: 11/27/24 Primary Care Physician: Dr. Sylvia Lizama MD Reason For Visit: WEAKNESS W/FALL AT HOME Diagnosis Discharge Diagnosis (1) Debility: Status: Acute Code(s): R53.81 - Other malaise (2) Weakness: Status: Acute Code(s): R53.1 - Weakness Medications at Discharge Home Medications potassium chloride 10 mEq tablet,extended release(part/cryst) 10 meq PO BID supplement 06/07/18 multivitamin with folic acid 400 mcg tablet (Thera) 1 tab PO DAILY vitamin 08/01/18 apixaban 5 mg tablet 5 mg PO BID blood thinner 08/13/20 levothyroxine 75 mcg tablet 75 mcg PO DAILY thyroid 07/30/22 carvedilol 25 mg tablet 25 mg PO BID blood pressure 03/24/24 gabapentin 400 mg capsule 400 mg PO TID nerve pain 03/24/24 hydralazine 50 mg tablet 50 mg PO BID blood pressure 03/24/24 paroxetine HCl 10 mg tablet 10 mg PO DAILY mental health 03/24/24 clonidine HCl 0.1 mg tablet 0.1 mg PO BID 30 days #60 tabs 03/26/24 losartan 100 mg tablet 100 mg PO DAILY 07/04/24 meclizine 25 mg tablet 25 mg PO TID 07/04/24 omeprazole 20 mg capsule,delayed release 20 mg PO DAILY PRN acid reflux 07/04/24 albuterol sulfate 90 mcg/actuation aerosol inhaler (Ventolin HFA) 2 puff inhalation Q4H PRN Wheezing 11/26/24 cefdinir 300 mg capsule 300 mg PO BID #4 caps 12/01/24 Hospital Course Operations None Procedures None Summary of Care Provided Minutes Spent on Discharge: 35 Hospital Course: Per HPI: LISA PU, is a 79 F who presented to [facility] ED on 11/26/2024 with weakness and a fall at home. Patient lives at home alone, does have family that lives close by. Patient has history of non-Hodgkin's lymphoma, follows with Dr. Quintero. She initially completed 2 rounds of Rituxan immunotherapy in 2021. She was found to have progression of disease on recent CT scans and underwent Rituxan infusions weekly for 4 weeks in September. During treatment she generally felt fatigued and had frequent nausea with decreased p.o. intake. Shortly after completing treatment, she was diagnosed with COVID. Since then she has continued to feel weak and has not been able to do much around the house for herself. Last night she had a subjective fever of 101F with associated chills. She attempted to get out of bed to take off some close because she was sweating so much and she was so weak that she fell to the ground. Did not hit her head. She then laid on the ground all night because of her weakness. She called family this morning who then called EMS to bring her into the hospital. In the ED she was hypertensive to the 190 systolic but otherwise hemodynamically stable on room air. She did spike a fever of 101.9F later this evening. Labs are fairly benign. Chest x-ray was nonacute. CT brain showed no acute bleed, did show an area concerning for subacute versus old stroke. MRI brain was obtained and showed only chronic changes, no acute changes. Patient has required SNF placement in the past and would be agreeable to SNF placement at this time as well. Given these findings, hospitalist was contacted for admission. I saw the patient at bedside in the ED, daughter and son-in-law are present. Patient was mildly fatigued appearing but otherwise sitting back comfortably in bed, conversing normally, in no acute distress. She denied any lightheadedness or dizziness at rest. She felt generally weak but denied any focal right or left-sided weakness. She denied any fevers or chills currently. Denied any chest pain or shortness of breath. Denied any other acute concerns at this time. Hospital Course: 1. Acute on chronic debility ??? PT/OT/case management following. Suspect worsening weakness is multifactorial from recent rounds of immunotherapy treatment in September followed by COVID infection. Planning for SNF on discharge and if patient remains stable, will be good for discharge to SNF on 12/01. 12/01/2024: I discussed with the plan for discharge today she expressed understanding of the risk benefits of going to the senior care and is okay with going today. 2. COVID-19 positive ??? COVID-19 positive on this admit. However, patient reported having initial COVID diagnosis about7 weeks ago. Chest x-ray unremarkable and patient stable on room air. Mild dry cough noted. No need for treatment with steroids or remdesivir. Symptomatic management. No need for isolation precautions at this time. 12/01/2024: Her COVID test remains positive despite having had COVID several weeks ago. I do not think that this is an active diagnosis and she does not need t (more content not included)...[facility]03[facility]2025 Consult note [facility] Medical Records Department [address] [place] [address] Counseling Note - Pharmacy 12/01/24 1334 MR#: [id number] Acct: [id number] Name: LISA UP Rep #:[id number] : 1945 79 From: Harmony Rushing PCP: Dr. Sylvia Lizama MD Status:ADM I N Y Location: [place] [address] Pharmacy [place] Med Reconciliation Pharmacy Service has performed discharge medication reconciliation for this patient. The patient's discharge medication list was reviewed for discrepancies and discrepancies were resolved. Medications at Discharge Home Medications potassium chloride 10 mEq tablet,extended release(part/cryst) 10 meq PO BID supplement 06/07/18 multivitamin with folic acid 400 mcg tablet (Thera) 1 tab PO DAILY vitamin 08/01/18 apixaban 5 mg tablet 5 mg PO BID blood thinner 08/13/20 levothyroxine 75 mcg tablet 75 mcg PO DAILY thyroid 07/30/22 carvedilol 25 mg tablet 25 mg PO BID blood pressure 03/24/24 gabapentin 400 mg capsule 400 mg PO TID nerve pain 03/24/24 hydralazine 50 mg tablet 50 mg PO BID blood pressure 03/24/24 paroxetine HCl 10 mg tablet 10 mg PO DAILY mental health 03/24/24 clonidine HCl 0.1 mg tablet 0.1 mg PO BID 30 days #60 tabs 03/26/24 losartan 100 mg tablet 100 mg PO DAILY 07/04/24 meclizine 25 mg tablet 25 mg PO TID 07/04/24 omeprazole 20 mg capsule,delayed release 20 mg PO DAILY PRN acid reflux 07/04/24 albuterol sulfate 90 mcg/actuation aerosol inhaler (Ventolin HFA) 2 puff inhalation Q4H PRN Wheezing 11/26/24 cefdinir 300 mg capsule 300 mg PO BID #4 caps 12/01/24 12/01/24 1334 Date _ Harmony Rushing Cosign Signature (if applicable): Date CC: ~ Signed [facility]03-12-2025 Consult note Author Harmony Rushing [facility] Note Date/Time December 01, 2024 3:4 5pm [facility] Medical Records Department [address] [place] [address] Counseling Note - Pharmacy 12/01/24 1334 MR#: [id number] Acct: [id number] Name: LISA UP Rep #:[id number] : 1945 79 From: Harmony Rushing PCP: Dr. Sylvia Lizama MD Status:ADM I N Y Location: [place] [address] Pharmacy [place] Med Reconciliation Pharmacy Service has performed discharge medication reconciliation for this patient. The patient's discharge medication list was reviewed for discrepancies and discrepancies were resolved. Medications at Discharge Home Medications potassium chloride 10 mEq tablet,extended release(part/cryst) 10 meq PO BID supplement 06/07/18 multivitamin with folic acid 400 mcg tablet (Thera) 1 tab PO DAILY vitamin 08/01/18 apixaban 5 mg tablet 5 mg PO BID blood thinner 08/13/20 levothyroxine 75 mcg tablet 75 mcg PO DAILY thyroid 07/30/22 carvedilol 25 mg tablet 25 mg PO BID blood pressure 03/24/24 gabapentin 400 mg capsule 400 mg PO TID nerve pain 03/24/24 hydralazine 50 mg tablet 50 mg PO BID blood pressure 03/24/24 paroxetine HCl 10 mg tablet 10 mg PO DAILY mental health 03/24/24 clonidine HCl 0.1 mg tablet 0.1 mg PO BID 30 days #60 tabs 03/26/24 losartan 100 mg tablet 100 mg PO DAILY 07/04/24 meclizine 25 mg tablet 25 mg PO TID 07/04/24 omeprazole 20 mg capsule,delayed release 20 mg PO DAILY PRN acid reflux 07/04/24 albuterol sulfate 90 mcg/actuation aerosol inhaler (Ventolin HFA) 2 puff inhalation Q4H PRN Wheezing 11/26/24 cefdinir 300 mg capsule 300 mg PO BID #4 caps 12/01/24 12/01/24 1334 <Electronically signed by Harmony Rushing> Date _ Harmony Pearson Signature (if applicable): Date CC: ~ Signed [facility] Work Phone: 1(903) 994-293303-12-2025 Discharge summary Author Kenyon Joiner [facility] Note Date/Time December 01, 2024 12: 00pm [facility] Medical Records Department [address] [place] [address] Transfer to [facility] MR#: [id number] Acct: [id number] Name: LISA UP Rep #:[id number] : 1945 79 From: Kenyon reese MD PCP: Dr. Sylvia Lizama MD Status:ADM I N Certification of patient admission REQUIRED AT TIME OF ADMISSION. I CERTIFY THAT POST-HOSPITAL ECF SERVICES ARE REQUIRED TO BE GIVEN ON AN IN-PATIENT BASIS BECAUSE OF THE ABOVE NAMED PATIENT'S NEED FOR FDC CARE ON A CONTINUING BASIS FOR THE CONDITION(S) FOR WHICH HE/SHE WAS RECEIVING IN-PATIENT HOSPITAL SERVICES PRIOR TO HIS/HER TRANSFER TO THE F. 12/01/24 1200<Electronically signed by Kenyon Joiner MD> Diet Diet Order/Speech Therapy: 11/30/24 16:09 Diet: Regular - General Food consistency:: Regular Liquid Consistency:: Regular/Thin Routine Orders/Code Status Routine Lab Work: CBC and BMP Code Status: Full Code DC O2, CPAP, BIPAP needs Home O2 Discharge instructions: No Therapies Physical Therapy: Eval and Treat Occupational Therapy: Eval and Treat Problem/Diagnosis (1) Debility: Status: Acute Code(s): R53.81 - Other malaise (2) Weakness: Status: Acute Code(s): R53.1 - Weakness Allergies/Procedures Done in Hospital Allergies COVID-19 vaccine, mRNA, [id number], Allergy (Verified 11/26/24 11:17) Anaphylaxis erythromycin base (Erythromycin Base) Allergy (Verified 11/26/24 11:17) Rash lisinopril Allergy (Verified 11/26/24 11:17) Swelling venom-wasp (wasp) Allergy (Verified 11/26/24 11:17) NEEDS FOLLOW-UP amlodipine Adverse Reaction (Verified 11/26/24 11:17) Swelling latex Adverse Reaction (Verified 11/26/24 11:17) Swelling Procedures: None Type of Care/Length of Stay Estimated LOS: Convalescent Care Less Than 30 days Type of Care Needed: Skilled Rehab Potential: Fair Prognosis: Fair Additional Orders/Day of Discharge Day of Discharge: 12/01/24 Dietary and Speech Recommendations Dietitian Recommendations/Changes: Will adjust to liberal regular diet d/t pts treatment with non-hodgkin's lymphoma. Will monitor weight trends. Discharge Plan Admission Admit Date/Time: 11/27/24 11:55 Attending Provider: Kenyon Joiner Primary Care Provider: Sylvia Lizama Consulting Providers: Jaxson Meehan; Alysha Miguel Discharge Orders/Prescriptions Prescriptions: New cefdinir 300 mg capsule 300 mg PO BID Qty: 4 0RF Continued potassium chloride 10 MEQ tablet 10 meq PO BID multivitamin with folic acid [Thera] 1 TABLET tablet 1 tab PO DAILY apixaban 5 MG tablet 5 mg PO BID levothyroxine 75 mcg Tablet 75 mcg PO DAILY carvedilol 25 mg tablet 25 mg PO BID paroxetine HCl 10 mg tablet 10 mg PO DAILY gabapentin 400 mg capsule 400 mg PO TID hydralazine 50 mg tablet 50 mg PO BID Patient Comments: PT STATES HER DR SAID IF HER BLOOD PRESSURE IS HIGH, TAKE AN EXTRA DOSE. clonidine HCl 0.1 mg Tablet 0.1 mg PO BID 30 Days Qty: 60 0RF albuterol sulfate [Ventolin HFA] 90 mcg/actuation HFA aerosol inhaler 2 puff inhalation Q4H PRN (Reason: Wheezing) Rx Instructions: with spacer omeprazole 20 mg capsule,delayed release(DR/EC) 20 mg PO DAILY PRN (Reason: acid reflux) meclizine 25 mg tablet 25 mg PO TID Patient Comments: PT STATES SHE SHOULD TAKE THIS BUT DOESN'T, ONLY IF SHE IS DIZZY. losartan 100 mg tablet 100 mg PO DAILY Referrals / Follow Up: Sylvia Lizama MD [Primary Care Provider] - Disposition Disposition (needs filled in before D/C Order can be placed): Group Home Facility 12/01/24 1200 <Electronically signed by Kenyon Joiner MD> Cosigner Signature (if applicable): CC: Dr. Jaxson Meehan DO; Dr. Alysha Miguel MD; Dr. Sylvia Lizama MD ~ [facility] Work Phone: 1(773) 685-887103-12-2025 Discharge summary [facility] Medical Records Department [address] [place] [address] [facility] Care MR#: [id number] Acct: [id number] Name: LISA UP Rep #:[id number] : 1945 79 From: Kenyon reese MD PCP: Dr. Sylvia Lizama MD Status:ADM I N Certification of patient admission REQUIRED AT TIME OF ADMISSION. I CERTIFY THAT POST-HOSPITAL ECF SERVICES ARE REQUIRED TO BE GIVEN ON AN IN-PATIENT BASIS BECAUSE OF THE ABOVE NAMED PATIENT'S NEED FOR FDC CARE ON A CONTINUING BASIS FOR THE CONDITION(S) FOR WHICH HE/SHE WAS RECEIVING IN-PATIENT HOSPITAL SERVICES PRIOR TO HIS/HER TRANSFER TO THE [facility]. 12/01/24 1200 Diet Diet Order/Speech Therapy: 11/30/24 16:09 Diet: Regular - General Food consistency:: Regular Liquid Consistency:: Regular/Thin Routine Orders/Code Status Routine Lab Work: CBC and BMP Code Status: Full Code DC O2, CPAP, BIPAP needs Home O2 Discharge instructions: No Therapies Physical Therapy: Eval and Treat Occupational Therapy: Eval and Treat Problem/Diagnosis (1) Debility: Status: Acute Code(s): R53.81 - Other malaise (2) Weakness: Status: Acute Code(s): R53.1 - Weakness Allergies/Procedures Done in Hospital Allergies COVID-19 vaccine, mRNA, [id number], Allergy (Verified 11/26/24 11:17) Anaphylaxis erythromycin base (Erythromycin Base) Allergy (Verified 11/26/24 11:17) Rash lisinopril Allergy (Verified 11/26/24 11:17) Swelling venom-wasp (wasp) Allergy (Verified 11/26/24 11:17) NEEDS FOLLOW-UP amlodipine Adverse Reaction (Verified 11/26/24 11:17) Swelling latex Adverse Reaction (Verified 11/26/24 11:17) Swelling Procedures: None Type of Care/Length of Stay Estimated LOS: Convalescent Care Less Than 30 days Type of Care Needed: Skilled Rehab Potential: Fair Prognosis: Fair Additional Orders/Day of Discharge Day of Discharge: 12/01/24 Dietary and Speech Recommendations Dietitian Recommendations/Changes: Will adjust to liberal regular diet d/t pts treatment with non-hodgkin's lymphoma. Will monitor weight trends. Discharge Plan Admission Admit Date/Time: 11/27/24 11:55 Attending Provider: Kenyon Joiner Primary Care Provider: Sylvia Lizama Consulting Providers: Jaxson Meehan; Alysha Miguel Discharge Orders/Prescriptions Prescriptions: New cefdinir 300 mg capsule 300 mg PO BID Qty: 4 0RF Continued potassium chloride 10 MEQ tablet 10 meq PO BID multivitamin with folic acid [Thera] 1 TABLET tablet 1 tab PO DAILY apixaban 5 MG tablet 5 mg PO BID levothyroxine 75 mcg Tablet 75 mcg PO DAILY carvedilol 25 mg tablet 25 mg PO BID paroxetine HCl 10 mg tablet 10 mg PO DAILY gabapentin 400 mg capsule 400 mg PO TID hydralazine 50 mg tablet 50 mg PO BID Patient Comments: PT STATES HER DR SAID IF HER BLOOD PRESSURE IS HIGH, TAKE AN EXTRA DOSE. clonidine HCl 0.1 mg Tablet 0.1 mg PO BID 30 Days Qty: 60 0RF albuterol sulfate [Ventolin HFA] 90 mcg/actuation HFA aerosol inhaler 2 puff inhalation Q4H PRN (Reason: Wheezing) Rx Instructions: with spacer omeprazole 20 mg capsule,delayed release(DR/EC) 20 mg PO DAILY PRN (Reason: acid reflux) meclizine 25 mg tablet 25 mg PO TID Patient Comments: PT STATES SHE SHOULD TAKE THIS BUT DOESN'T, ONLY IF SHE IS DIZZY. losartan 100 mg tablet 100 mg PO DAILY Referrals / Follow Up: Sylvia Lizama MD [Primary Care Provider] - Disposition Disposition (needs filled in before D/C Order can be placed): Group Home Facility 12/01/24 1200 Cosigner Signature (if applicable): CC: Dr. Jaxson Meehan DO; Dr. Alysha Miguel MD; Dr. Sylvia Lizama MD ~ [facility]03-11-2025 Progress note Author Jaxson Meehan [facility] Note Date/Time November 30, 2024 3:2 7pm [facility] Medical Records Department [address] [place] [address] Progress Note - Hospitalist 11/30/243 MR#: [id number] Acct: [id number] Name: LISA UP Rep #:[id number] : 1945 79 From: Jaxson de santiago DO PCP: Dr. Sylvia Lizama MD Status:ADM I N Location: [place] [address] Reason for Visit Reason for Visit: Diagnoses Weakness (11/27/24) Other malaise (11/27/24) Subjective Subjective Saw patient at bedside this morning. Patient was mildly fatigued appearing but otherwise sitting back comfortably in bed, conversing normally and in no acute distress. She reported continuing to feel more weak than her normal but otherwise denied any new concerns this morning. Objective Data Objective Data Vital Signs: Vital Signs Temp Pulse Resp BP Pulse Ox O2 Del Method 97.9 F 65 16 107/44 L 96 Room Air 11/30/24 09:44 11/30/24 09:44 11/30/24 09:44 11/30/24 09:49 11/30/24 09:44 11/30/24 09:44 Oxygen Delivery Method Room Air Weight: 106.7 kg Body Mass Index (BMI) 41.6 Intake & Output: Intake and Output for Last 24 Hours 11/29/24 11/29/24 11/30/24 00:59 23:59 23:59 Intake Total 1040 / 1040 65.25 / 65.25 500 / 500 Output Total 625 / 875 1325 / 1325 500 / 500 Balance 415 / 165 -1259.75 / -1259.75 0 / 0 Lab / Micro Data 11/30/24 05:22 11/30/24 05:22 Labs: Laboratory Results - last 24 hr 11/30/24 05:22: WBC 4.8, RBC 3.40 L, Hgb 10.4 L, Hct 32.4 L, MCV 95.3, MCH 30.6,MCHC 32.1, RDW Std Deviation 44.5 H, RDW Coeff of [place] 12.9, Plt Count 126 L, MPV10.3, Immature Gran % (Auto) 0.800, Neut % (Auto) 67.0, Lymph % (Auto) 18.2 L, [place] % (Auto) 10.3 H, Eos % (Auto) 3.5, Baso % (Auto) 0.2, Absolute Neuts (auto) 3.2, Absolute Lymphs (auto) 0.88, Nucleated RBC % 0, Sodium 136, Potassium 4.2, Chloride 104, Carbon Dioxide 21.9, Anion Gap 11, BUN 18, Creatinine 0.77, Estim Creat Clear Calc 64.53, Est GFR (MDRD) Non-Af 77, BUN/Creatinine Ratio 23.0 H, Glucose 114 H, Calcium 8.8 Micro: Microbiology 11/29/24 09:14 Urine, Clean Catch Urine Culture - Final Mixed Gram Pos & Gram Neg Org 11/29/24 10:00 Mucosa - Nasopharyngeal Respiratory Panel (PCR) - Final 11/26/24 14:05 Blood Culture (Wb) - Venous Blood Culture - Preliminary No growth in 48 hours. 11/26/24 14:05 Blood Culture (Wb) - Venous Blood Culture - Preliminary No growth in 48 hours. 11/26/24 13:40 Mucosa - Nose SARS-CoV-2, Influenza & RSV (PCR) - Final SARS-CoV-2 (COVID 19 PCR) Rhythm Strip Rhythm Strip: Sinus Rhythm Rate: 68 Ectopy: None Physical Exam Const alert, oriented x3 and no apparent distress Constitutional Narrative: Elderly female, class III obesity, mildly fatigued appearing but otherwise sitting back comfortably in bed, conversing normally, in no acute distress. General Appearance: cooperative and comfortable HEENT normocephalic, head/scalp atraumatic, hearing grossly normal bilaterally, nasal mucous membranes and turbinates normal and moist oral mucous membranes Eyes PERRL, EOMs intact bilaterally and conjunctivae normal Neck full ROM Chest inspection of chest normal Resp normal respiratory effort, no use of accessory muscles and clear to auscultationbilaterally Cardio regular rate, regular rhythm, no murmurs and peripheral pulses 2+ throughout GI normal to inspection, nondistended, normoactive bowel sounds, soft to palpation,non-tender and non-distended Back/Spine normal ROM Extremity normal to inspection, full ROM and no pedal edema Skin no rashes or lesions noted Neuro moves all extremities and no focal motor deficits Speech: speech normal Psych mental status grossly normal Assessment & Plan Assessment/Plan (1) Debility: (2) Weakness: PLAN: Plan Patient is an 79-year-old female who presented to [facility] ED on 11/26/2024 with weakness and a fall at home. 1. Acute on chronic debility ? PT/OT/case management following. Suspect worsening weakness is multifactorialfrom recent rounds of immunotherapy treatment in September followed by COVID infection. Planning for SNF on discharge and if patient remains stable, will begood for discharge to SNF on 12/01. 2. COVID-19 positive ? COVID-19 positive on this admit. However, patient reported having initial COVID diagnosis about 7 weeks ago. Chest x-ray unremarkable and patient stable on room air. Mild dry cough noted. No need for treatment with steroids or remdesivir. Symptomatic management. No need for isolation precautions at this time. 3. Acute cystitis ? Patient reported UTI symptoms and intermittent fever/chills so UA was obtainedon 11/29 and showed positive nitrites, 500 leukocyte esterase, 3+ bacteria. Urine culture pending. No prior urine cultures available for comparison. Continue treatment with IV ceftriaxone for now, narrow as able. 4. History of non-Hodgkin's lymphoma with recent immunotherapy treatment ? Follows with Dr. Quintero. Had 4 rounds of Rituxan infusion therapy done on a weekly basis in September. Plan was for repeat CT scan 6 weeks later to reevaluate her lesions. No inpatient needs, continue close outpatient follow-up. 5. Left cerebellar hypodensity ? CT brain without contrast called a 9.2 mm hypodensity in the superior left cerebellar peduncle. ED physician discussed with on-call neurology who suspected either subacute versus old stroke and recommended MRI brain for further evaluation. MRI brain showed no acute intracranial abnormality, only chronic small vessel ischemic changes. No further workup needed at this time. Chronic medical conditions: ? Class III obesity: BMI 41 on admit. Complicates hospital course, care and prognosis. ? 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 ? Hypothyroidism: Continue home Synthroid. ? Hypertension: Continue home Coreg, clonidine, hydralazine, and losartan. ? Depression: Continue home paroxetine. ? Neuropathy: Continue home gabapentin. ? GERD: Continue home omeprazole. ? History of bilateral remote knee replacements DVT prophylaxis: Not indicated, on Eliquis CODE STATUS: Full code, verified Expected disposition: SNF, 1 to 2 days Total clinical time spent by myself addressing the patient's medical issues, reviewing all the data, and collaborating with patient's care team: 35 minutes. Charges/Coding Visit Charges Inpatient E&M: 03315 Subs Hosp L2 11/30/24 1527 <Electronically signed by Jaxson Meehan DO> Cosigner Signature (if applicable): CC: ~ Signed [facility] Work Phone: 1(429) 617-414303-11-2025 Progress note [facility] Medical Records Department [address] [facility] [place] [address] Progress Note - Hospitalist 11/30/24 1123 MR#: [id number] Acct: [id number] Name: LISA UP Rep #:[id number] : 1945 79 From: Jaxson de santiago DO PCP: Dr. Sylvia Lizama MD Status:ADM I N Location: [place] [address] Reason for Visit Reason for Visit: Diagnoses Weakness (11/27/24) Other malaise (11/27/24) Subjective Subjective Saw patient at bedside this morning. Patient was mildly fatigued appearing but otherwise sitting back comfortably in bed, conversing normally and in no acute distress. She reported continuing to feelmore weak than her normal but otherwise denied any new concerns this morning. Objective Data Objective Data Vital Signs: Vital Signs Temp Pulse Resp BP Pulse Ox O2 Del Method 97.9 F 65 16 107/44 L 96 Room Air 11/30/24 09:44 11/30/24 09:44 11/30/24 09:44 11/30/24 09:49 11/30/24 09:44 11/30/24 09:44 Oxygen Delivery Method Room Air Weight: 106.7 kg Body Mass Index (BMI) 41.6 Intake & Output: Intake and Output for Last 24 Hours 11/29/24 11/29/24 11/30/24 00:59 23:59 23:59 Intake Total 1040 / 1040 65. 500 / 500 Output Total 625 / 875 1325 / 1325 500 / 500 Balance 415 / 165 -1259.75 / -1259.75 0 / 0 Lab / Micro Data 11/30/24 05:22 11/30/24 05:22 Labs: Laboratory Results - last 24 hr 11/30/24 05:22: WBC 4.8, RBC 3.40 L, Hgb 10.4 L, Hct 32.4 L, MCV 95.3, MCH 30.6,MCHC 32.1, RDW Std Deviation 44.5 H, RDW Coeff of [place] 12.9, Plt Count 126 L, MPV10.3, Immature Gran % (Auto) 0.800, Neut % (Auto) 67.0, Lymph % (Auto) 18.2 L, [place] % (Auto) 10.3 H, Eos % (Auto) 3.5, Baso % (Auto) 0.2, Absolute Neuts (auto) 3.2, Absolute Lymphs (auto) 0.88, Nucleated RBC % 0, Sodium 136, Potassium 4.2,Chloride 104, Carbon Dioxide 21.9, Anion Gap 11, BUN 18, Creatinine 0.77, Estim Creat Clear Calc 64.53, Est GFR (MDRD) Non-Af 77, BUN/Creatinine Ratio 23.0 H, Glucose 114 H, Calcium 8.8 Micro: Microbiology 11/29/24 09:14 Urine, Clean Catch Urine Culture - Final Mixed Gram Pos & Gram Neg Org 11/29/24 10:00 Mucosa - Nasopharyngeal Respiratory Panel (PCR) - Final 11/26/24 14:05 Blood Culture (Wb) - Venous Blood Culture - Preliminary No growth in 48 hours. 11/26/24 14:05 Blood Culture (Wb) - Venous Blood Culture - Preliminary No growth in 48 hours. 11/26/24 13:40 Mucosa - Nose SARS-CoV-2, Influenza & RSV (PCR) - Final SARS-CoV-2 (COVID 19 PCR) Rhythm Strip Rhythm Strip: Sinus Rhythm Rate: 68 Ectopy: None Physical Exam Const alert, oriented x3 and no apparent distress Constitutional Narrative: Elderly female, class III obesity, mildly fatigued appearing but otherwise sitting back comfortablyin bed, conversing normally, in no acute distress. General Appearance: cooperative and comfortable HEENT normocephalic, head/scalp atraumatic, hearing grossly normal bilaterally, nasal mucous membranes and turbinates normal and moist oral mucous membranes Eyes PERRL, EOMs intact bilaterally and conjunctivae normal Neck full ROM Chest inspection of chest normal Resp normal respiratory effort, no use of accessory muscles and clear to auscultationbilaterally Cardio regular rate, regular rhythm, no murmurs and peripheral pulses 2+ throughout GI normal to inspection, nondistended, normoactive bowel sounds, soft to palpation,non-tender and non-distended Back/Spine normal ROM Extremity normal to inspection, full ROM and no pedal edema Skin no rashes or lesions noted Neuro moves all extremities and no focal motor deficits Speech: speech normal Psych mental status grossly normal Assessment & Plan Assessment/Plan (1) Debility: (2) Weakness: PLAN: Plan Patient is an 79-year-old female who presented to [facility] ED on 11/26/2024 with weakness and a fall at home. 1. Acute on chronic debility ? PT/OT/case management following. Suspect worsening weakness is multifactorialfrom recent rounds of immunotherapy treatment in September followed by COVID infection. Planning for SNF on discharge and if patient remains stable, will begood for discharge to SNF on 12/01. 2. COVID-19 positive ? COVID-19 positive on this admit. However, patient reported having initial COVID diagnosis about 7weeks ago. Chest x-ray unremarkable and patient stable on room air. Mild dry cough noted. No need for treatment with steroids or remdesivir. Symptomatic management. No need for isolation precautions at this time. 3. Acute cystitis ? Patient reported UTI symptoms and intermittent fever/chills so UA was obtainedon 11/29 and showed positive nitrites, 500 leukocyte esterase, 3+ bacteria. Urine culture pending. No prior urine cultures available for comparison. Continue treatment with IV ceftriaxone for now, narrow as able. 4. History of non-Hodgkin's lymphoma with recent immunotherapy treatment ? Follows with Dr. Quintero. Had 4 rounds of Rituxan infusion therapy done on a weekly basis in September. Plan was for repeat CT scan 6 weeks later to reevaluate her lesions. No inpatient needs, continueclose outpatient follow-up. 5. Left cerebellar hypodensity ? CT brain without contrast called a 9.2 mm hypodensity in the superior left cerebellar peduncle. ED physician discussed with on-call neurology who suspected either subacute versus old stroke and recommended MRI brain for further evaluation. MRI brain showed no acute intracranial abnormality, only chronic small vessel ischemic changes. No further workup needed at this time. Chronic medical conditions: ? Class III obesity: BMI 41 on admit. Complicates hospital course, care and prognosis. ? 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 ? Hypothyroidism: Continue home Synthroid. ? Hypertension: Continue home Coreg, clonidine, hydralazine, and losartan. ? Depression: Continue home paroxetine. ? Neuropathy: Continue home gabapentin. ? GERD: Continue home omeprazole. ? History of bilateral remote knee replacements DVT prophylaxis: Not indicated, on Eliquis CODE STATUS: Full code, verified Expected disposition: SNF, 1 to 2 days Total clinical time spent by myself addressing the patient's medical issues, reviewing all the data, and collaborating with patient's care team: 35 minutes. Charges/Coding Visit Charges Inpatient E&M: 33299 Subs Hosp L2 11/30/24 1527 Cosigner Signature (if applicable): CC: ~ Signed [facility]25 Progress note Author Alysha Miguel [facility] Note Date/Time November 29, 2024 10: 17am [facility] Medical Records Department [address] [facility] [place] [address] Progress Note - Hospitalist 11/29/24 0807 MR#: [id number] Acct: [id number] Name: LISA UP Rep #:[id number] : 1945 79 From: Alysha Miguel MD PCP: Dr. Sylvia Lizama MD Status:ADM I N Location: [place] [address] Reason for Visit Reason for Visit: Diagnoses Weakness (11/27/24) Other malaise (11/27/24) Subjective Subjective Patient seen complains of intermittent fever and chills. Temperature maximum over the past 24 hours 102.5. Repeated viral respiratory panel, checks x-ray urinalysis Objective Data Objective Data Vital Signs: Vital Signs Temp Pulse Resp BP Pulse Ox O2 Del Method 97.7 F L 58 L 16 115/61 94 Room Air 11/29/24 05:24 11/29/24 05:24 11/29/24 05:24 11/29/24 05:24 11/29/24 05:24 11/29/24 05:24 Oxygen Delivery Method Room Air Weight: 106.7 kg Body Mass Index (BMI) 41.6 Intake & Output: Intake and Output for Last 24 Hours 11/27/24 11/29/24 11/29/24 23:59 00:59 23:59 Intake Total 1040 / 1040 Output Total 625 / 875 475 / 475 Balance 415 / 165 -475 / -475 Lab / Micro Data 11/29/24 05:16 11/29/24 05:16 Labs: Laboratory Results - last 24 hr 11/28/24 09:00: WBC 4.5, RBC 3.62 L, Hgb 11.1 L, Hct 35.1 L, MCV 97.0, MCH 30.7,MCHC 31.6 L, RDW Std Deviation 45.7 H, RDW Coeff of [place] 12.9, Plt Count 130 L, MPV 10.4, Sodium 138, Potassium 4.2, Chloride 103, Carbon Dioxide 24.1, Anion Gap 11, BUN 19, Creatinine 0.99, Estim Creat Clear Calc 52.15, Est GFR (MDRD) Non-Af 58 L, BUN/Creatinine Ratio 19.4, Glucose 113 H, Calcium 8.9, Magnesium 2.0, Total Bilirubin 0.28, AST 28, ALT 5, Alkaline Phosphatase 56, Total Protein5.7 L, Albumin 3.3 L, Globulin 2.5, Albumin/Globulin Ratio 1.3 11/29/24 05:16: WBC 4.3 L, RBC 3.29 L, Hgb 10.0 L, Hct 31.7 L, MCV 96.4, MCH 30.4, MCHC 31.5 L, RDW Std Deviation 46.3 H, RDW Coeff of [place] 13.0, Plt Count 117 L, MPV 10.3, Immature Gran % (Auto) 1.200 H, Neut % (Auto) 62.8, Lymph % (Auto) 20.1, [place] % (Auto) 12.7 H, Eos % (Auto) 3.0, Baso % (Auto) 0.2, AbsoluteNeuts (auto) 2.7, Absolute Lymphs (auto) 0.87, Nucleated RBC % 0, Sodium 137, Potassium 4.2, Chloride 105, Carbon Dioxide 22.4, Anion Gap 10, BUN 22 H, Creatinine 0.84, Estim Creat Clear Calc 61.46, Est GFR (MDRD) Non-Af 70, BUN/Creatinine Ratio 25.7 H, Glucose 117 H, Calcium 8.7, Phosphorus 3.8 Micro: Microbiology 11/26/24 14:05 Blood Culture (Wb) - Venous Blood Culture - Preliminary No growth in 48 hours. 11/26/24 14:05 Blood Culture (Wb) - Venous Blood Culture - Preliminary No growth in 48 hours. 11/26/24 13:40 Mucosa - Nose SARS-CoV-2, Influenza & RSV (PCR) - Final SARS-CoV-2 (COVID 19 PCR) Rhythm Strip Rhythm Strip: Sinus Rhythm Rate: 68 Ectopy: None Physical Exam Narrative GENERAL: cooperative HEENT: Atraumatic; normocephalic EYES; Anicteric, Normal Conjunctiva NECK; supple, normal thyroid, RESPIRATORY: Diminished to auscultation CARDIOVASCULAR: Regular S1 S2, GI: soft, normoactive bowel sounds, : No Renal angle tenderness; EXTREMITIES: No edema, no clubbing, MUSCULOSKELETAL: no muscle wasting NEURO: Awake; no lateralizing signs. SKIN: No Rash PSYCH; Flat affect Assessment & Plan Assessment/Plan (1) Debility: (2) Weakness: PLAN: Plan Patient is an 79-year-old lady with recent diagnosis of COVID 2 weeks prior to her admission presented with progressive generalized weakness and fall 1. Acute febrile illness ? Patient tested positive for COVID several weeks prior repeat testing on admission still came back positive. Patient still complains of intermittent fever and persistent chills. Repeated viral respiratory panel checks x-ray as well as urinalysis 2. Physical deconditioning/debility ? Secondary to recent COVID-19 infection requested for PT OT eval and social work lecturer to assist with discharge planning ? 11/28/2024 patient still remains significantly weak. Case was discussed with case management today prior plan is for patient to be discharged to a chcf facility pending insurance 3. Non-Hodgkin's lymphoma ? Patient currently undergoing treatment as outpatient 4. Left cerebellar hypodensity ? CT brain without contrast called a 9.2 mm hypodensity in the superior left cerebellar peduncle. ED physician discussed with on-call neurology who suspected either subacute versus old stroke and recommended MRI brain for further evaluation. MRI brain showed no acute intracranial abnormality, only chronic small vessel ischemic changes. No further workup needed at this time. 5. Class III obesity with BMI of 41.7 ? Complicating care weight loss advised 6. Hypertension ? 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 Hypothyroidism ? Patient is on levothyroxine home dose continued 9. Peripheral neuropathy ? Patient is on gabapentin 10. Depression with anxiety ? Patient is on paroxetine 11. GERD ? Patient is on omeprazole 12. Generalized osteoarthritis ? With history of bilateral knee replacement 13. Anemia ? Secondary to chronic disorder monitoring H&H and transfuse if patient becomes symptomatic or hemoglobin falls below 7 14. DVT prophylaxis Already on apixaban Time spent in the patient's overall evaluation,decision-making process, review of diagnostic data, adjustment of management, discussion with other providers, nursing nursing and ancillary staff involved in patient's care documentation, 50minutes Charges/Coding Visit Charges Inpatient E&M: 87157 Subs Hosp L3 11/29/24 0914 <Electronically signed by Alysha Miguel MD> Cosigner Signature (if applicable): CC: ~ Signed ADDENDUM by Dr. Alysha Miguel MD on 11/29/24 at 1017 Addendum Patient urinalysis obtained came back positive for acute cystitis subsequently started on Rocephin urine cultures already sent. 11/29/24 1017<Electronically signed by Alysha Miguel MD> Cosigner Signature (if applicable): cc: ~* Signed [facility] Work Phone: 1(735) 506-112803-10-2025 Progress note [facility] Medical Records Department [address] [place] [address] Progress Note - Hospitalist 11/29/24 0807 MR#: [id number] Acct: [id number] Name: LISA PU Rep #:[id number] : 1945 79 From: Alysha Miguel MD PCP: Dr. Sylvia Lizama MD Status:ADM I N Location: [place] [address] Reason for Visit Reason for Visit: Diagnoses Weakness (11/27/24) Other malaise (11/27/24) Subjective Subjective Patient seen complains of intermittent fever and chills. Temperature maximum over the past 24 [id number]. Repeated viral respiratory panel, checks x-ray urinalysis Objective Data Objective Data Vital Signs: Vital Signs Temp Pulse Resp BP Pulse Ox O2 Del Method 97.7 F L 58 L 16 115/61 94 Room Air 11/29/24 05:24 11/29/24 05:24 11/29/24 05:24 11/29/24 05:24 11/29/24 05:24 11/29/24 05:24 Oxygen Delivery Method Room Air Weight: 106.7 kg Body Mass Index (BMI) 41.6 Intake & Output: Intake and Output for Last 24 Hours 11/27/24 11/29/24 11/29/24 23:59 00:59 23:59 Intake Total 1040 / 1040 Output Total 625 / 875 475 / 475 Balance 415 / 165 -475 / -475 Lab / Micro Data 11/29/24 05:16 11/29/24 05:16 Labs: Laboratory Results - last 24 hr 11/28/24 09:00: WBC 4.5, RBC 3.62 L, Hgb 11.1 L, Hct 35.1 L, MCV 97.0, MCH 30.7,MCHC 31.6 L, RDW Std Deviation 45.7 H, RDW Coeff of [place] 12.9, Plt Count 130 L, MPV 10.4, Sodium 138, Potassium 4.2, Chloride 103, Carbon Dioxide 24.1, Anion Gap 11, BUN 19, Creatinine 0.99, Estim Creat Clear Calc 52.15,Est GFR (MDRD) Non-Af 58 L, BUN/Creatinine Ratio 19.4, Glucose 113 H, Calcium 8.9, Magnesium 2.0, Total Bilirubin 0.28, AST 28, ALT 5, Alkaline Phosphatase 56, Total Protein5.7 L, Albumin 3.3 L, Globulin 2.5, Albumin/Globulin Ratio 1.3 11/29/24 05:16: WBC 4.3 L, RBC 3.29 L, Hgb 10.0 L, Hct 31.7 L, MCV 96.4, MCH 30.4, MCHC 31.5 L, RDWStd Deviation 46.3 H, RDW Coeff of [place] 13.0, Plt Count 117 L, MPV 10.3, Immature Gran % (Auto) 1.200 H, Neut % (Auto) 62.8, Lymph % (Auto) 20.1, [place] % (Auto) 12.7 H, Eos % (Auto) 3.0, Baso % (Auto) 0.2, AbsoluteNeuts (auto) 2.7, Absolute Lymphs (auto) 0.87, Nucleated RBC % 0, Sodium 137, Potassium4.2, Chloride 105, Carbon Dioxide 22.4, Anion Gap 10, BUN 22 H, Creatinine 0.84, Estim Creat Clear Calc 61.46, Est GFR (MDRD) Non-Af 70, BUN/Creatinine Ratio 25.7 H, Glucose 117 H, Calcium 8.7, Phosphorus 3.8 Micro: Microbiology 11/26/24 14:05 Blood Culture (Wb) - Venous Blood Culture - Preliminary No growth in 48 hours. 11/26/24 14:05 Blood Culture (Wb) - Venous Blood Culture - Preliminary No growth in 48 hours. 11/26/24 13:40 Mucosa - Nose SARS-CoV-2, Influenza & RSV (PCR) - Final SARS-CoV-2 (COVID 19 PCR) Rhythm Strip Rhythm Strip: Sinus Rhythm Rate: 68 Ectopy: None Physical Exam Narrative GENERAL: cooperative HEENT: Atraumatic; normocephalic EYES; Anicteric, Normal Conjunctiva NECK; supple, normal thyroid, RESPIRATORY: Diminished to auscultation CARDIOVASCULAR: Regular S1 S2, GI: soft, normoactive bowel sounds, : No Renal angle tenderness; EXTREMITIES: No edema, no clubbing, MUSCULOSKELETAL: no muscle wasting NEURO: Awake; no lateralizing signs. SKIN: No Rash PSYCH; Flat affect Assessment & Plan Assessment/Plan (1) Debility: (2) Weakness: PLAN: Plan Patient is an 79-year-old lady with recent diagnosis of COVID 2 weeks prior to her admission presented with progressive generalized weakness and fall 1. Acute febrile illness ? Patient tested positive for COVID several weeks prior repeat testing on admission still came backpositive. Patient still complains of intermittent fever and persistent chills. Repeated viral respiratory panel checks x-ray as well as urinalysis 2. Physical deconditioning/debility ? Secondary to recent COVID-19 infection requested for PT OT eval and social work lecturer to assist with discharge planning ? 11/28/2024 patient still remains significantly weak. Case was discussed with case management today prior plan is for patient to be discharged to a ch[facility] facility pending insurance 3. Non-Hodgkin's lymphoma ? Patient currently undergoing treatment as outpatient 4. Left cerebellar hypodensity ? CT brain without contrast called a 9.2 mm hypodensity in the superior left cerebellar peduncle. ED physician discussed with on-call neurology who suspected either subacute versus old stroke and recommended MRI brain for further evaluation. MRI brain showed no acute intracranial abnormality, only chronic small vessel ischemic changes. No further workup needed at this time. 5. Class III obesity with BMI of 41.7 ? Complicating care weight loss advised 6. Hypertension ? 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 Hypothyroidism ? Patient is on levothyroxine home dose continued 9. Peripheral neuropathy ? Patient is on gabapentin 10. Depression with anxiety ? Patient is on paroxetine 11. GERD ? Patient is on omeprazole 12. Generalized osteoarthritis ? With history of bilateral knee replacement 13. Anemia ? Secondary to chronic disorder monitoring H&H and transfuse if patient becomes symptomatic or hemoglobin falls below 7 14. DVT prophylaxis Already on apixaban Time spent in the patient's overall evaluation,decision-making process, review of diagnostic data, adjustment of management, discussion with other providers, nursing nursing and ancillary staff involved in patient's care documentation, 50minutes Charges/Coding Visit Charges Inpatient E&M: 81792 [facility] Hosp 11/29/24 0914 Cosigner Signature (if applicable): CC: ~ Signed ADDENDUM by Dr. Alysha Miguel MD on 11/29/24 at 1017 Addendum Patient urinalysis obtained came back positive for acute cystitis subsequently started on Rocephin urine cultures already sent. 11/29/24 1017 Cosigner Signature (if applicable): cc: ~* Signed [facility]03-10-2025 Radiology Diagnostic study note [facility] Imaging Services [address] [place] [id number] Chest 1 View (Portable) MR#: [id number] Acct: [id number] Name: LISA UP Rep #: [id number] : 1945 F 79 From: Beena Li MD PCP: Dr. Sylvia Lizama MD Status: ADM I N Study:Chest 1 View (Portable) Date of Exam: 11/29/24 Exam# [id number] Ordering Dr: Shelia Miguel MD EXAM: XR Chest, 1 View CLINICAL INDICATION: TECHNIQUE: Frontal view of the chest. COMPARISON: No relevant prior studies available. FINDINGS: LUNGS AND PLEURAL SPACES: Unremarkable. No consolidation. No pneumothorax. HEART: Unremarkable. No cardiomegaly. MEDIASTINUM: Unremarkable. Normal mediastinal contour. BONES/JOINTS: Unremarkable. No acute fracture. RAD/Chest 1 View (Portable) IMPRESSION: No acute cardiopulmonary process. Reading Location: [facility] CC: Dr. Alysha Miguel MD; Dr. Sylvia Lizama MD ~ Software Engineer Backend: Signed [facility]03-09-2025 Progress note Author Alysha Miguel [facility] Note Date/Time November 28, 2024 10:0 7am [facility] Medical Records Department [address] [facility] [place] [address] Progress Note - Hospitalist 11/28/24 0738 MR#: [id number] Acct: [id number] Name: LISA UP Rep #:[id number] : 1945 79 From: Alysha Miguel MD PCP: Dr. Sylvia Lizama MD Status:ADM I N Location: [place] [address] Reason for Visit Reason for Visit: Diagnoses Weakness (11/27/24) Other malaise (11/27/24) Subjective Subjective Patient seen complains of intermittent fever and chills otherwise had a relatively unremarkable evening Objective Data Objective Data Vital Signs: Vital Signs Temp Pulse Resp BP Pulse Ox O2 Del Method 99.3 F H 73 18 109/56 L 94 Room Air 11/28/24 04:40 11/28/24 04:40 11/28/24 04:40 11/28/24 04:40 11/28/24 04:40 11/28/24 04:40 Oxygen Delivery Method Room Air Weight: 106.7 kg Body Mass Index (BMI) 41.6 Intake & Output: Intake and Output for Last 24 Hours 11/26/24 11/27/24 11/29/24 23:59 23:59 00:59 Intake Total 1000 / 1000 240 / 240 Output Total 225 / 225 Balance 1000 / 1000 15 / Lab / Micro Data 11/28/24 09:00 11/27/24 07:35 Labs: Laboratory Results - last 24 hr 11/27/24 07:35: WBC 4.1 L, RBC 3.57 L, Hgb 11.0 L, Hct 33.8 L, MCV 94.7, MCH 30.8, MCHC 32.5, RDW Std Deviation 44.3 H, RDW Coeff of [place] 12.9, Plt Count 123 L, MPV 9.9, Sodium 139, Potassium 4.0, Chloride 104, Carbon Dioxide 24.1, Anion Gap 11, BUN 13, Creatinine 0.80, Estim Creat Clear Calc 64.53, Est GFR (MDRD) Non-Af 75, BUN/Creatinine Ratio 16.7, Glucose 101 H, Calcium 8.6 Micro: Microbiology 11/26/24 13:40 Mucosa - Nose SARS-CoV-2, Influenza & RSV (PCR) - Final SARS-CoV-2 (COVID 19 PCR) Rhythm Strip Rhythm Strip: Sinus Rhythm Rate: 68 Ectopy: None Physical Exam Narrative GENERAL: cooperative HEENT: Atraumatic; normocephalic EYES; Anicteric, Normal Conjunctiva NECK; supple, normal thyroid, RESPIRATORY: Diminished to auscultation CARDIOVASCULAR: Regular S1 S2, GI: soft, normoactive bowel sounds, : No Renal angle tenderness; EXTREMITIES: No edema, no clubbing, MUSCULOSKELETAL: no muscle wasting NEURO: Awake; no lateralizing signs. SKIN: No Rash PSYCH; Flat affect Assessment & Plan Assessment/Plan (1) Debility: (2) Weakness: PLAN: Plan Patient is an 79-year-old lady with recent diagnosis of COVID 2 weeks prior to her admission presented with progressive generalized weakness and fall 1. Physical deconditioning/debility ? Secondary to recent COVID-19 infection requested for PT OT eval and social work lecturer to assist with discharge planning ? 11/28/2024 patient still remains significantly weak. Case was discussed with case management today prior plan is for patient to be discharged to a ch[facility] facility pending insurance 2. COVID-19 infection ? Patient initial diagnosis was 7 weeks prior still remains positive plan is to continue with symptom management ? 11/28/2024; patient continues to experience intermittent fever and chills. 3. Non-Hodgkin's lymphoma ? Patient currently undergoing treatment as outpatient 4. Left cerebellar hypodensity ? CT brain without contrast called a 9.2 mm hypodensity in the superior left cerebellar peduncle. ED physician discussed with on-call neurology who suspected either subacute versus old stroke and recommended MRI brain for further evaluation. MRI brain showed no acute intracranial abnormality, only chronic small vessel ischemic changes. No further workup needed at this time. 5. Class III obesity with BMI of 41.7 ? Complicating care weight loss advised 6. Hypertension ? 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 Hypothyroidism ? Patient is on levothyroxine home dose continued 9. Peripheral neuropathy ? Patient is on gabapentin 10. Depression with anxiety ? Patient is on paroxetine 11. GERD ? Patient is on omeprazole 12. Generalized osteoarthritis ? With history of bilateral knee replacement 13. Anemia ? Secondary to chronic disorder monitoring H&H and transfuse if patient becomes symptomatic or hemoglobin falls below 7 14. DVT prophylaxis Already on apixaban Time spent in the patient's overall evaluation,decision-making process, review of diagnostic data, adjustment of management, discussion with other providers, nursing nursing and ancillary staff involved in patient's care documentation, 38 Minutes Charges/Coding Visit Charges Inpatient E&M: 06663 Subs Hosp L2 11/28/24 1007 <Electronically signed by Alysha Miguel MD> Cosigner Signature (if applicable): CC: ~ Signed [facility] Work Phone: [phone]) [phone] Progress note [facility] Medical Records Department [address] [place] [address] Progress Note - Hospitalist 11/28/24 0738 MR#: [id number] Acct: [id number] Name: LISA UP Rep #:[id number] : 1945 79 From: Alysha Miguel MD PCP: Dr. Sylvia Lizama MD Status:ADM I N Location: [place] [address] Reason for Visit Reason for Visit: Diagnoses Weakness (11/27/24) Other malaise (11/27/24) Subjective Subjective Patient seen complains of intermittent fever and chills otherwise had a relatively unremarkable evening Objective Data Objective Data Vital Signs: Vital Signs Temp Pulse Resp BP Pulse Ox O2 Del Method 99.3 F H 73 18 109/56 L 94 Room Air 11/28/24 04:40 11/28/24 04:40 11/28/24 04:40 11/28/24 04:40 11/28/24 04:40 11/28/24 04:40 Oxygen Delivery Method Room Air Weight: 106.7 kg Body Mass Index (BMI) 41.6 Intake & Output: Intake and Output for Last 24 Hours 11/26/24 11/27/24 11/29/24 23:59 23:59 00:59 Intake Total 1000 / 1000 240 / 240 Output Total 225 / 225 Balance 1000 / 1000 Lab / Micro Data 11/28/24 09:00 11/27/24 07:35 Labs: Laboratory Results - last 24 hr 11/27/24 07:35: WBC 4.1 L, RBC 3.57 L, Hgb 11.0 L, Hct 33.8 L, MCV 94.7, MCH 30.8, MCHC 32.5, RDW Std Deviation 44.3 H, RDW Coeff of [place] 12.9, Plt Count 123 L, MPV 9.9, Sodium 139, Potassium 4.0, Chloride 104, Carbon Dioxide 24.1, Anion Gap 11, BUN 13, Creatinine 0.80, Estim Creat Clear Calc 64.53,Est GFR (MDRD) Non-Af 75, BUN/Creatinine Ratio 16.7, Glucose 101 H, Calcium 8.6 Micro: Microbiology 11/26/24 13:40 Mucosa - Nose SARS-CoV-2, Influenza & RSV (PCR) - Final SARS-CoV-2 (COVID 19 PCR) Rhythm Strip Rhythm Strip: Sinus Rhythm Rate: 68 Ectopy: None Physical Exam Narrative GENERAL: cooperative HEENT: Atraumatic; normocephalic EYES; Anicteric, Normal Conjunctiva NECK; supple, normal thyroid, RESPIRATORY: Diminished to auscultation CARDIOVASCULAR: Regular S1 S2, GI: soft, normoactive bowel sounds, : No Renal angle tenderness; EXTREMITIES: No edema, no clubbing, MUSCULOSKELETAL: no muscle wasting NEURO: Awake; no lateralizing signs. SKIN: No Rash PSYCH; Flat affect Assessment & Plan Assessment/Plan (1) Debility: (2) Weakness: PLAN: Plan Patient is an 79-year-old lady with recent diagnosis of COVID 2 weeks prior to her admission presented with progressive generalized weakness and fall 1. Physical deconditioning/debility ? Secondary to recent COVID-19 infection requested for PT OT eval and social work lecturer to assist with discharge planning ? 11/28/2024 patient still remains significantly weak. Case was discussed with case management today prior plan is for patient to be discharged to a chcf facility pending insurance 2. COVID-19 infection ? Patient initial diagnosis was 7 weeks prior still remains positive plan is to continue with symptom management ? 11/28/2024; patient continues to experience intermittent fever and chills. 3. Non-Hodgkin's lymphoma ? Patient currently undergoing treatment as outpatient 4. Left cerebellar hypodensity ? CT brain without contrast called a 9.2 mm hypodensity in the superior left cerebellar peduncle. ED physician discussed with on-call neurology who suspected either subacute versus old stroke and recommended MRI brain for further evaluation. MRI brain showed no acute intracranial abnormality, only chronic small vessel ischemic changes. No further workup needed at this time. 5. Class III obesity with BMI of 41.7 ? Complicating care weight loss advised 6. Hypertension ? 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 Hypothyroidism ? Patient is on levothyroxine home dose continued 9. Peripheral neuropathy ? Patient is on gabapentin 10. Depression with anxiety ? Patient is on paroxetine 11. GERD ? Patient is on omeprazole 12. Generalized osteoarthritis ? With history of bilateral knee replacement 13. Anemia ? Secondary to chronic disorder monitoring H&H and transfuse if patient becomes symptomatic or hemoglobin falls below 7 14. DVT prophylaxis Already on apixaban Time spent in the patient's overall evaluation,decision-making process, review of diagnostic data, adjustment of management, discussion with other providers, nursing nursing and ancillary staff involved in patient's care documentation, 38 Minutes Charges/Coding Visit Charges Inpatient E&M: 65290 Subs Hosp L2 11/28/24 1007 Cosigner Signature (if applicable): CC: ~ Signed [facility]03-09[facility]25 Progress note Author Alysha Miguel [facility] Note Date/Time November 28, 2024 7:39 am [facility] Medical Records Department [address] [place] [address] Progress Note - Hospitalist 11/27/24 08 MR#: [id number] Acct: [id number] Name: LISA UP Rep #:[id number] : 1945 79 From: Alysha Miguel MD PCP: Dr. Sylvia Lizama MD Status:ADM I N Location: [place] [id number] Reason for Visit Reason for Visit: Diagnoses Weakness (11/26/24) Other malaise (11/26/24) Subjective Subjective Patient is an 79-year-old lady with recent diagnosis of COVID 2 weeks prior to her admission presented with progressive generalized weakness and fall Objective Data Objective Data Vital Signs: Vital Signs Temp Pulse Resp BP Pulse Ox O2 Del Method 98.5 F 67 18 122/63 H 95 Room Air 11/27/24 05:38 11/27/24 03:06 11/27/24 03:06 11/27/24 03:06 11/27/24 03:06 11/27/24 03:46 Oxygen Delivery Method Room Air Weight: 106.7 kg Body Mass Index (BMI) 41.6 Intake & Output: Intake and Output for Last 24 Hours 11/25/24 11/26/24 11/27/24 23:59 23:59 23:59 Intake Total 1000 / 1000 Balance 1000 / 1000 Lab / Micro Data 11/27/24 07:35 11/27/24 07:35 Labs: Laboratory Results - last 24 hr 11/26/24 14:05: WBC 5.1, RBC 3.83 L, Hgb 11.7 L, Hct 36.2 L, MCV 94.5, MCH 30.5,MCHC 32.3, RDW Std Deviation 43.9, RDW Coeff of [place] 12.8, Plt Count 142 L, MPV 10.2, Immature Gran % (Auto) 0.400, Neut % (Auto) 71.0 H, Lymph % (Auto) 15.0 L,[place] % (Auto) 12.2 H, Eos % (Auto) 1.2, Baso % (Auto) 0.2, Absolute Neuts (auto)3.6, Absolute Lymphs (auto) 0.76 L, Nucleated RBC % 0, Sodium 138, Potassium 4.1, Chloride 101, Carbon Dioxide 25.6, Anion Gap 11, BUN 11, Creatinine 0.72, Estim Creat Clear Calc 64.55, Est GFR (MDRD) Non-Af 83, BUN/Creatinine Ratio 15.1, Glucose 108 H, Lactic Acid < 1.0, Calcium 9.4, Total Bilirubin 0.49, AST 27, ALT < 5, Alkaline Phosphatase 66, Total Creatine Kinase 183, Troponin T HighSens 18 H, Total Protein 6.1, Albumin 3.7, Globulin 2.4, Albumin/Globulin Ratio 1.5, Urine Color Yellow, Urine Clarity Clear, Urine pH 7.0, Ur Specific [place] 1.010, Urine Protein 15 H, Urine Glucose (UA) Normal, Urine Ketones Negative, Urine Occult Blood 10 H, Urine Nitrite Negative, Urine Bilirubin Negative, Urine Urobilinogen 1 H, Ur Leukocyte Esterase Negative, Urine RBC 0-5 SEEN, Urine WBC 0-5 SEEN, Ur Squamous Epith Cells 0-5 SEEN, Urine Bacteria 0 SEEN, Urine Mucus 0SEEN 11/26/24 17:15: Troponin T Hi Sens 2 Hr Cancelled 11/26/24 17:45: Troponin T Hi Sens 4Hr 20 H 11/26/24 20:35: Troponin T Hi Sens 2 Hr 18 H 11/27/24 07:35: WBC 4.1 L, RBC 3.57 L, Hgb 11.0 L, Hct 33.8 L, MCV 94.7, MCH 30.8, MCHC 32.5, RDW Std Deviation 44.3 H, RDW Coeff of [place] 12.9, Plt Count 123 L, MPV 9.9 Micro: Microbiology 11/26/24 13:40 Mucosa - Nose SARS-CoV-2, Influenza & RSV (PCR) - Final SARS-CoV-2 (COVID 19 PCR) Radiography Diagnostic Testing: Radiology Impression Brain CT 11/26/24 13:27 IMPRESSION: Cerebral atrophy. There is a 9.2 mm hypodensity in the left superior left cerebellar peduncle. Correlation with MRI recommended. Opacification of the ethmoid sinuses bilaterally as well as the left sphenoid sinus. Reading Location: [id number] Chest X-Ray 11/26/24 14:35 IMPRESSION: No acute abnormality is seen. Reading Location: [id number] Knee X-Ray 11/26/24 15:38 IMPRESSION: Status post total knee replacement. No acute abnormality is seen. Reading Location: [id number] Brain MRI 11/26/24 17:29 IMPRESSION: 1. No acute intracranial abnormality. 2. Atrophy and chronic small-vessel ischemic disease. 3. Moderate scattered paranasal sinus disease. Reading Location: [facility] Rhythm Strip Rhythm Strip: Sinus Rhythm Rate: 68 Ectopy: None Assessment & Plan Assessment/Plan (1) Debility: (2) Weakness: PLAN: Plan Patient is an 79-year-old lady with recent diagnosis of COVID 2 weeks prior to her admission presented with progressive generalized weakness and fall 1. Physical deconditioning/debility ? Secondary to recent COVID-19 infection requested for PT OT eval and social work lecturer to assist with discharge planning 2. COVID-19 infection ? Patient initial diagnosis was 7 weeks prior still remains positive plan is to continue with symptom management 3. Non-Hodgkin's lymphoma ? Patient currently undergoing treatment as outpatient 4. Left cerebellar hypodensity ? CT brain without contrast called a 9.2 mm hypodensity in the superior left cerebellar peduncle. ED physician discussed with on-call neurology who suspected either subacute versus old stroke and recommended MRI brain for further evaluation. MRI brain showed no acute intracranial abnormality, only chronic small vessel ischemic changes. No further workup needed at this time. 5. Class III obesity with BMI of 41.7 ? Complicating care weight loss advised 6. Hypertension ? 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 Hypothyroidism ? Patient is on levothyroxine home dose continued 9. Peripheral neuropathy ? Patient is on gabapentin 10. Depression with anxiety ? Patient is on paroxetine 11. GERD ? Patient is on omeprazole 12. Generalized osteoarthritis ? With history of bilateral knee replacement 13. Anemia ? Secondary to chronic disorder monitoring H&H and transfuse if patient becomes symptomatic or hemoglobin falls below 7 14. DVT prophylaxis Already on apixaban Time spent in the patient's overall evaluation,decision-making process, review of diagnostic data, adjustment of management, discussion with other providers, nursing nursing and ancillary staff involved in patient's care documentation,50 Minutes Charges/Coding Visit Charges Inpatient E&M: 97652 Subs Hosp L3 11/27/24 1020 <Electronically signed by Alysha Miguel MD> Cosigner Signature (if applicable): CC: ~ Signed ADDENDUM by Dr. Alysha Miguel MD on 11/28/24 at 0739 Addendum GENERAL: cooperative HEENT: Atraumatic; normocephalic EYES; Anicteric, Normal Conjunctiva NECK; supple, normal thyroid, RESPIRATORY: Diminished to auscultation CARDIOVASCULAR: Regular S1 S2, GI: soft, normoactive bowel sounds, : No Renal angle tenderness; EXTREMITIES: No edema, no clubbing, MUSCULOSKELETAL: no muscle wasting NEURO: Awake; no lateralizing signs. SKIN: No Rash PSYCH; Flat affect 11/28/24 0739<Electronically signed by Alysha Miguel MD> Cosigner Signature (if applicable): cc: ~* Signed [facility] Work Phone: [phone] 880-451003-09-2025 Progress note [facility] Medical Records Department [address] [place] [address] Progress Note - Hospitalist 11/27/24 08 MR#: [id number] Acct: [id number] Name: LISA UP Rep #:[id number] : 1945 79 From: Alysha Miguel MD PCP: Dr. Sylvia Lizama MD Status:ADM I N Location: [place] [address] Reason for Visit Reason for Visit: Diagnoses Weakness (11/26/24) Other malaise (11/26/24) Subjective Subjective Patient is an 79-year-old lady with recent diagnosis of COVID 2 weeks prior to her admission presented with progressive generalized weakness and fall Objective Data Objective Data Vital Signs: Vital Signs Temp Pulse Resp BP Pulse Ox O2 Del Method 98.5 F 67 18 122/63 H 95 Room Air 11/27/24 05:38 11/27/24 03:06 11/27/24 03:06 11/27/24 03:06 11/27/24 03:06 11/27/24 03:46 Oxygen Delivery Method Room Air Weight: 106.7 kg Body Mass Index (BMI) 41.6 Intake & Output: Intake and Output for Last 24 Hours 11/25/24 11/26/24 11/27/24 23:59 23:59 23:59 Intake Total 1000 / 1000 Balance 1000 / 1000 Lab / Micro Data 11/27/24 07:35 11/27/24 07:35 Labs: Laboratory Results - last 24 hr 11/26/24 14:05: WBC 5.1, RBC 3.83 L, Hgb 11.7 L, Hct 36.2 L, MCV 94.5, MCH 30.5,MCHC 32.3, RDW Std Deviation 43.9, RDW Coeff of [place] 12.8, Plt Count 142 L, MPV 10.2, Immature Gran % (Auto) 0.400, Neut% (Auto) 71.0 H, Lymph % (Auto) 15.0 L,[place] % (Auto) 12.2 H, Eos % (Auto) 1.2, Baso % (Auto) 0.2, Absolute Neuts (auto)3.6, Absolute Lymphs (auto) 0.76 L, Nucleated RBC % 0, Sodium 138, Potassium 4.1, Chloride 101, Carbon Dioxide 25.6, Anion Gap 11, BUN 11, Creatinine 0.72, Estim Creat Clear Calc 64.55, Est GFR (MDRD) Non-Af 83, BUN/Creatinine Ratio 15.1, Glucose 108 H, Lactic Acid < 1.0, Calcium 9.4, Total Bilirubin 0.49, AST 27, ALT < 5, Alkaline Phosphatase 66, Total Creatine Kinase 183, Troponin T HighSens 18 H, Total Protein 6.1, Albumin 3.7, Globulin 2.4, Albumin/Globulin Ratio 1.5, Urine Color Yellow, Urine Clarity Clear, Urine pH 7.0, Ur Specific [place] 1.010, Urine Protein 15 H, Urine Glucose (UA) Normal, Urine Ketones Negative, Urine Occult Blood 10 H, Urine Nitrite Negative, Urine Bilirubin Negative, Urine Urobilinogen 1 H, Ur Leukocyte Esterase Negative, Urine RBC 0-5SEEN, Urine WBC 0-5 SEEN, Ur Squamous Epith Cells 0-5 SEEN, Urine Bacteria 0 SEEN, Urine Mucus 0SEEN 11/26/24 17:15: Troponin T Hi Sens 2 Hr Cancelled 11/26/24 17:45: Troponin T Hi Sens 4Hr 20 H 11/26/24 20:35: Troponin T Hi Sens 2 Hr 18 H 11/27/24 07:35: WBC 4.1 L, RBC 3.57 L, Hgb 11.0 L, Hct 33.8 L, MCV 94.7, MCH 30.8, MCHC 32.5, RDW Std Deviation 44.3 H, RDW Coeff of [place] 12.9, Plt Count 123 L, MPV 9.9 Micro: Microbiology 11/26/24 13:40 Mucosa - Nose SARS-CoV-2, Influenza & RSV (PCR) - Final SARS-CoV-2 (COVID 19 PCR) Radiography Diagnostic Testing: Radiology Impression Brain CT 11/26/24 13:27 IMPRESSION: Cerebral atrophy. There is a 9.2 mm hypodensity in the left superior left cerebellar peduncle. Correlation with MRI recommended. Opacification of the ethmoid sinuses bilaterally as well as the left sphenoid sinus. Reading Location: [id number] Chest X-Ray 11/26/24 14:35 IMPRESSION: No acute abnormality is seen. Reading Location: [facility] Knee X-Ray 11/26/24 15:38 IMPRESSION: Status post total knee replacement. No acute abnormality is seen. Reading Location: [facility] Brain MRI 11/26/24 17:29 IMPRESSION: 1. No acute intracranial abnormality. 2. Atrophy and chronic small-vessel ischemic disease. 3. Moderate scattered paranasal sinus disease. Reading Location: [facility] Rhythm Strip Rhythm Strip: Sinus Rhythm Rate: 68 Ectopy: None Assessment & Plan Assessment/Plan (1) Debility: (2) Weakness: PLAN: Plan Patient is an 79-year-old lady with recent diagnosis of COVID 2 weeks prior to her admission presented with progressive generalized weakness and fall 1. Physical deconditioning/debility ? Secondary to recent COVID-19 infection requested for PT OT eval and social work lecturer to assist with discharge planning 2. COVID-19 infection ? Patient initial diagnosis was 7 weeks prior still remains positive plan is to continue with symptom management 3. Non-Hodgkin's lymphoma ? Patient currently undergoing treatment as outpatient 4. Left cerebellar hypodensity ? CT brain without contrast called a 9.2 mm hypodensity in the superior left cerebellar peduncle. ED physician discussed with on-call neurology who suspected either subacute versus old stroke and recommended MRI brain for further evaluation. MRI brain showed no acute intracranial abnormality, only chronic small vessel ischemic changes. No further workup needed at this time. 5. Class III obesity with BMI of 41.7 ? Complicating care weight loss advised 6. Hypertension ? 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 Hypothyroidism ? Patient is on levothyroxine home dose continued 9. Peripheral neuropathy ? Patient is on gabapentin 10. Depression with anxiety ? Patient is on paroxetine 11. GERD ? Patient is on omeprazole 12. Generalized osteoarthritis ? With history of bilateral knee replacement 13. Anemia ? Secondary to chronic disorder monitoring H&H and transfuse if patient becomes symptomatic or hemoglobin falls below 7 14. DVT prophylaxis Already on apixaban Time spent in the patient's overall evaluation,decision-making process, review of diagnostic data, adjustment of management, discussion with other providers, nursing nursing and ancillary staff involved in patient's care documentation,50 Minutes Charges/Coding Visit Charges Inpatient E&M: 06658 Subs Hosp L3 11/27/24 1020 Cosigner Signature (if applicable): CC: ~ Signed ADDENDUM by Dr. Alysha Miguel MD on 11/28/24 at 0739 Addendum GENERAL: cooperative HEENT: Atraumatic; normocephalic EYES; Anicteric, Normal Conjunctiva NECK; supple, normal thyroid, RESPIRATORY: Diminished to auscultation CARDIOVASCULAR: Regular S1 S2, GI: soft, normoactive bowel sounds, : No Renal angle tenderness; EXTREMITIES: No edema, no clubbing, MUSCULOSKELETAL: no muscle wasting NEURO: Awake; no lateralizing signs. SKIN: No Rash PSYCH; Flat affect 11/28/24 0739 Cosigner Signature (if applicable): cc: ~* Signed [facility]03-08-2025 Evaluation note* Diagnosis Onset Date Resolution Status Admit Date Debility acute November 27 11:55am Weakness acute November 27 11:55am [facility] Work Phone: [phone] 315-574303-07-2025 History and physical note Author Jaxson Meehan [facility] Note Date/Time November 26, 2024 7:19 pm [facility] Medical Records Department [address] [place] [address] H&P Exam - Hospitalist 11/26/24 1607 MR#: [id number] Acct: [id number] Name: LISA UP Rep #:[id number] : 1945 79 From: Jaxson de santiago DO PCP: Dr. Sylvia Lizama MD Status:ADM I NO [id number] H[facility] - General General Date of Admission: 11/26/24 Date of Service: 11/26/24 Chief Complaint: weakness with fall at home HPI Narrative LISA UP, is a 79 F who presented to [facility] ED on 11/26/2024 with weakness and a fall at home. Patient lives at home alone, does have family that lives close by. Patient has history of non-Hodgkin's lymphoma,follows with Dr. Quintero. She initially completed 2 rounds of Rituxan immunotherapy in 2021. She was found to have progression of disease on recent CT scans and underwent Rituxan infusions weekly for 4 weeks in September. During treatment she generally felt fatigued and had frequent nausea with decreased p.o. intake. Shortly after completing treatment, she was diagnosed with COVID. Since then she has continued to feel weak and has not been able to do much around the house for herself. Last night she had a subjective fever of 101F with associated chills. She attempted to get out of bed to take off some close because she was sweating so much and she was so weak that she fell to the ground. Did not hit her head. She then laid on the ground all night because ofher weakness. She called family this morning who then called EMS to bring her into the hospital. In the ED she was hypertensive to the 190 systolic but otherwise hemodynamically stable on room air. She did spike a fever of 101.9F later this evening. Labs are fairly benign. Chest x-ray was nonacute. CT brain showed no acute bleed, did show an area concerning for subacute versus oldstroke. MRI brain was obtained and showed only chronic changes, no acute changes. Patient has required SNF placement in the past and would be agreeable to SNF placement at this time as well. Given these findings, hospitalist was contacted for admission. I saw the patient at bedside in the ED, daughter and son-in-law are present. Patient was mildly fatigued appearing but otherwise sitting back comfortably in bed, conversing normally, in no acute distress. She denied any lightheadedness or dizziness at rest. She felt generally weak but denied any focal right or left- sided weakness. She denied any fevers or chills currently. Denied any chest pain or shortness of breath. Denied any other acute concerns at this time. [facility] Medical History DVT (deep venous thrombosis) Post-menopausal Dyspnea History of stress test Ovarian tumor Anticoagulant long-term use Non Hodgkin's lymphoma Dehiscence of surgical wound GERD (gastroesophageal reflux disease) Restless leg syndrome Peripheral neuropathy Osteoarthritis Hypertension Morbid obesity with BMI of 40.0-44.9, adult Home Medications ?Medication ?Instructions ?Recorded ?Last Taken ?Type potassium chloride 10 mEq 10 meq PO BID supplement 11/25/24 History tablet,extended release(part/cryst) multivitamin with folic acid 400 1 tab PO DAILY vitami n 08/01/18 11/25/24 History mcg tablet (Thera) apixaban 5 mg tablet 5 mg PO BID blood thinner 11/25/24 History levothyroxine 75 mcg tablet 75 mcg PO DAILY thyroid 11/25/24 History carvedilol 25 mg tablet 25 mg PO BID blood pressure 03/24/24 11/25/24 History gabapentin 400 mg capsule 400 mg PO TID nerve pain 12/1311/25/24 History hydralazine 50 mg tablet 50 mg PO BID blood pressure 03/24/24 11/25/24 History paroxetine HCl 10 mg tablet 10 mg PO DAILY mental heal th 03/24/24 11/25/24 History clonidine HCl 0.1 mg tablet 0.1 mg PO BID 30 days #60 tabs 03/26/24 11/25/24 Rx losartan 100 mg tablet 100 mg PO DAILY 07/04/2403/16 History meclizine 25 mg tablet 25 mg PO TID 07/04/24 Unknow n History omeprazole 20 mg capsule,delayed 20 mg PO DAILY PRN ac id reflux 07/04/24 11/25/24 History release albuterol sulfate 90 mcg/actuation 2 puff inhalation Q 4H PRN Wheezing 11/26/24 11/25/24 History aerosol inhaler (Ventolin HFA) Allergy/AdvReac Type Severity Reaction Status Date / Time COVID-19 vaccine, mRNA, Allergy Anaphylaxis Verified 11/26/24 11:17 [id number], erythromycin base Allergy Rash Verified 11/26/24 11:17 (Erythromycin Base) lisinopril Allergy Swelling Verified 11/26/24 11:17 venom-wasp (wasp) Allergy NEEDS Verified 11/26/24 11:17 FOLLOW-UP amlodipine AdvReac Swelling Verified 11/26/24 11:17 latex AdvReac Swelling Verified 11/26/24 11:17 Family History Mother Hypertension Surgical History S/P laparoscopic cholecystectomy S/P hysterectomy H/O laminectomy History of partial nephrectomy History of tonsillectomy History of total knee arthroplasty History of total abdominal hysterectomy Social History Smoking Status: Never smoker ROS Constitutional Constitutional: Reports chills, fatigue, fever(s) and weakness Eyes Eyes: Denies change in vision Cardiovascular Cardiovascular: Denies chest pain Respiratory/Chest Respiratory/Chest: Denies cough, shortness of breath at rest, shortness of breath with exertion or wheezing Gastrointestinal Gastrointestinal: Denies abdominal pain, constipation, diarrhea, nausea or vomiting Genitourinary Genitourinary: Denies dysuria Musculoskeletal Musculoskeletal: Denies arthralgias or myalgias Neurologic Neurologic: Denies dizziness, headache(s), numbness or paresthesias Vital Signs Vital Signs Vital Signs: 11/26/24 11:13 11/26/24 11:17 11/26/24 11:22 Temperature 98.7 F 98.2 F Temperature Source Oral Oral Pulse Rate 76 67 Respiratory Rate 16 16 Respiratory Effort Normal Respiratory Depth Normal Respiratory Pattern Normal Blood Pressure 191/90 H 191/90 H Blood Pressure Mean 123 123 Pulse Ox 95 95 95 Oxygen Delivery Method Room Air Room Air Room Air 11/26/24 13:06 11/26/24 15:00 11/26/24 15:20 Temperature 99 F Temperature Source Pulse Rate 68 70 71 Respiratory Rate 16 13 20 H Respiratory Effort Respiratory Depth Respiratory Pattern Blood Pressure 169/70 H 150/78 H 166/68 H Blood Pressure Mean 103 100 100 Pulse Ox 95 95 95 Oxygen Delivery Method Weight Weight: 110.2 kg Body Mass Index (BMI) 44.4 Physical Exam Const alert, oriented x3 and no apparent distress Constitutional Narrative: Elderly female, class III obesity, mildly fatigued appearing but otherwise sitting back comfortably in bed, conversing normally, in no acute distress. General Appearance: cooperative and comfortable HEENT normocephalic, head/scalp atraumatic, hearing grossly normal bilaterally, nasal mucous membranes and turbinates normal and moist oral mucous membranes Eyes PERRL, EOMs intact bilaterally and conjunctivae normal Neck full ROM Chest inspection of chest normal Resp normal respiratory effort, no use of accessory muscles and clear to auscultationbilaterally Cardio regular rate, regular rhythm, no murmurs and peripheral pulses 2+ throughout GI normal to inspection, nondistended, normoactive bowel sounds, soft to palpation,non-tender and non-distended Back/Spine normal ROM Extremity normal to inspection, full ROM and no pedal edema Skin no rashes or lesions noted Neuro moves all extremities and no focal motor deficits Speech: speech normal Psych mental status grossly normal Results Lab / Micro Data 11/26/24 14:05 11/26/24 14:05 Labs: Laboratory Results - last 24 hr 11/26/24 14:05: WBC 5.1, RBC 3.83 L, Hgb 11.7 L, Hct 36.2 L, MCV 94.5, MCH 30.5,MCHC 32.3, RDW Std Deviation 43.9, RDW Coeff of [place] 12.8, Plt Count 142 L, MPV 10.2, Immature Gran % (Auto) 0.400, Neut % (Auto) 71.0 H, Lymph % (Auto) 15.0 L,[place] % (Auto) 12.2 H, Eos % (Auto) 1.2, Baso % (Auto) 0.2, Absolute Neuts (auto)3.6, Absolute Lymphs (auto) 0.76 L, Nucleated RBC % 0, Sodium 138, Potassium 4.1, Chloride 101, Carbon Dioxide 25.6, Anion Gap 11, BUN 11, Creatinine 0.72, Estim Creat Clear Calc 64.55, Est GFR (MDRD) Non-Af 83, BUN/Creatinine Ratio 15.1, Glucose 108 H, Lactic Acid < 1.0, Calcium 9.4, Total Bilirubin 0.49, AST 27, ALT < 5, Alkaline Phosphatase 66, Total Protein 6.1, Albumin 3.7, Globulin 2.4, Albumin/Globulin Ratio 1.5, Urine Color Yellow, Urine Clarity Clear, Urine pH 7.0, Ur Specific [place] 1.010, Urine Protein 15 H, Urine Glucose (UA) Normal, Urine Ketones Negative, Urine Occult Blood 10 H, Urine Nitrite Negative,Urine Bilirubin Negative, Urine Urobilinogen 1 H, Ur Leukocyte Esterase Negative, Urine RBC 0-5 SEEN, Urine WBC 0-5 SEEN, Ur Squamous Epith Cells 0-5 SEEN, Urine Bacteria 0 SEEN, Urine Mucus 0 SEEN Micro: Microbiology 11/26/24 13:40 Mucosa - Nose SARS-CoV-2, Influenza & RSV (PCR) - Final SARS-CoV-2 (COVID 19 PCR) Imaging Radiology Impression Brain CT 11/26/24 13:27 IMPRESSION: Cerebral atrophy. There is a 9.2 mm hypodensity in the left superior left cerebellar peduncle. Correlation with MRI recommended. Opacification of the ethmoid sinuses bilaterally as well as the left sphenoid sinus. Reading Location: [facility] Chest X-Ray 11/26/24 14:35 IMPRESSION: No acute abnormality is seen. Reading Location: [facility] Knee X-Ray 11/26/24 15:38 IMPRESSION: Status post total knee replacement. No acute abnormality is seen. Reading Location: [facility] Assessment & Plan Assessment/Plan (1) Debility: (2) Weakness: PLAN: Plan Patient is an 79-year-old female who presented to [facility] ED on 11/26/2024 with weakness and a fall at home. 1. Acute on chronic debility ? Admit under observation status to PCU. PT/OT/case management consulted. Suspect worsening weakness is multifactorial from recent rounds of immunotherapytreatment in September followed by COVID infection. Suspect patient will need SNFon discharge but will follow-up therapy recommendations. 2. COVID-19 positive ? COVID-19 positive on this admit. However, patient reported having initial COVID diagnosis about 7 weeks ago. Chest x-ray unremarkable and patient stable on room air. Mild dry cough noted. No need for treatment with steroids or remdesivir. Symptomatic management. No need for isolation precautions at this time. 3. History of non-Hodgkin's lymphoma with recent immunotherapy treatment ? Follows with Dr. Quintero. Had 4 rounds of Rituxan infusion therapy done on a weekly basis in September. Plan was for repeat CT scan 6 weeks later to reevaluate her lesions. No inpatient needs, continue close outpatient follow-up. 4. Left cerebellar hypodensity ? CT brain without contrast called a 9.2 mm hypodensity in the superior left cerebellar peduncle. ED physician discussed with on-call neurology who suspected either subacute versus old stroke and recommended MRI brain for further evaluation. MRI brain showed no acute intracranial abnormality, only chronic small vessel ischemic changes. No further workup needed at this time. Chronic medical conditions: ? Class III obesity: BMI 41 on admit. Complicates hospital course, care and prognosis. ? 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 ? Hypothyroidism: Continue home Synthroid. ? Hypertension: Continue home Coreg, clonidine, hydralazine, and losartan. ? Depression: Continue home paroxetine. ? Neuropathy: Continue home gabapentin. ? GERD: Continue home omeprazole. ? History of bilateral remote knee replacements DVT prophylaxis: Not indicated, on Eliquis CODE STATUS: Full code, verified Expected disposition: Likely SNF, 1 to 2 days Total clinical time spent by myself addressing the patient's medical issues, reviewing all the data, and collaborating with patient's care team: 75 minutes. Charges/Coding Visit Charges Inpatient E&M: 11124 Init Hosp L3 11/26/242018 <Electronically signed by Jaxson Meehan DO> Cosigner Signature (if applicable): CC: Dr. Jaxson Meehan DO; Dr. Sylvia Lizama MD~ Signed [facility] Work Phone: [phone] 146-617203-07-2025 History and physical note [facility] Medical Records Department [facility] [place] [address] H&P Exam - Hospitalist 11/26/24 1607 MR#: [id number] Acct: [id number] Name: LISA UP Rep #:[id number] : 1945 79 From: Jaxson Kady de santiago DO PCP: Dr. Sylvia Lizama MD Status:ADM I NO Location: [place] [address] HPI - General General Date of Admission: 11/26/24 Date of Service: 11/26/24 Chief Complaint: weakness with fall at home HPI Narrative LISA UP, is a 79 F who presented to [facility] ED on 11/26/2024 with weakness and a fall at home. Patient lives at home alone, does have family that lives close by. Patient has history of non-Hodgkin's lymphoma,follows with Dr. Quintero. She initially completed 2 rounds of Rituxan immunotherapy in 2021. She was found to have progression of disease on recent CT scans and underwent Rituxan infusions weekly for 4 weeks in September. During treatment she generally felt fatigued and had frequent nausea with decreased p.o. intake. Shortly after completing treatment, she was diagnosed with COVID. Since then she has continued to feel weak and has not been able to do much around the house for herself. Last night she had a subjective fever of 101F with associated chills. She attempted to get out of bed to take off some close because she was sweating so much and she was so weak that she fell to the ground. Did not hit her head. She then laid on the ground all night because ofher weakness. She called family this morning who then called EMS to bring her into the hospital. In the ED she was hypertensive to the 190 systolic but otherwise hemodynamically stable on room air. She did spike a fever of 101.9F later this evening. Labs are fairly benign. Chest x-ray was nonacute. CT brain showed no acute bleed, did show an area concerning for subacute versus oldstroke. MRI brain wasobtained and showed only chronic changes, no acute changes. Patient has required SNF placement in the past and would be agreeable to SNF placement at this time as well. Given these findings, hospitalist was contacted for admission. I saw the patient at bedside in the ED, daughter and son-in-law are present. Patient was mildly fatigued appearing but otherwise sitting back comfortably in bed, conversing normally, in no acute distress. She denied any lightheadedness or dizziness at rest. She felt generally weak but denied any focal right or left-sided weakness. She denied any fevers or chills currently. Denied any chest pain or shortness of breath. Denied any other acute concerns at this time. [facility] Medical History DVT (deep venous thrombosis) Post-menopausal Dyspnea History of stress test Ovarian tumor Anticoagulant long-term use Non Hodgkin's lymphoma Dehiscence of surgical wound GERD (gastroesophageal reflux disease) Restless leg syndrome Peripheral neuropathy Osteoarthritis Hypertension Morbid obesity with BMI of 40.0-44.9, adult Home Medications ?Medication ?Instructions ?Recorded ?Last Taken ?Type potassium chloride 10 mEq 10 meq PO BID supplement 11/25/24 History tablet,extended release(part/cryst) multivitamin with folic acid 400 1 tab PO DAILY vitami n 08/01/18 11/25/24 History mcg tablet (Thera) apixaban 5 mg tablet 5 mg PO BID blood thinner 11/25/24 History levothyroxine 75 mcg tablet 75 mcg PO DAILY thyroid 11/25/24 History carvedilol 25 mg tablet 25 mg PO BID blood pressure 03/24/24 11/25/24 History gabapentin 400 mg capsule 400 mg PO TID nerve pain 12/1311/25/24 History hydralazine 50 mg tablet 50 mg PO BID blood pressure 03/24/24 11/25/24 History paroxetine HCl 10 mg tablet 10 mg PO DAILY mental heal th 03/24/24 11/25/24 History clonidine HCl 0.1 mg tablet 0.1 mg PO BID 30 days #60 tabs 03/26/24 11/25/24 Rx losartan 100 mg tablet 100 mg PO DAILY 07/04/2403/16 History meclizine 25 mg tablet 25 mg PO TID 07/04/24 Unknow n History omeprazole 20 mg capsule,delayed 20 mg PO DAILY PRN ac id reflux 07/04/24 11/25/24 History release albuterol sulfate 90 mcg/actuation 2 puff inhalation Q 4H PRN Wheezing 11/26/24 11/25/24 History aerosol inhaler (Ventolin HFA) Allergy/AdvReac Type Severity Reaction Status Date / Time COVID-19 vaccine, mRNA, Allergy Anaphylaxis Verified 11/26/24 11:17 [id number], erythromycin base Allergy Rash Verified 11/26/24 11:17 (Erythromycin Base) lisinopril Allergy Swelling Verified 11/26/24 11:17 venom-wasp (wasp) Allergy NEEDS Verified 11/26/24 11:17 FOLLOW-UP amlodipine AdvReac Swelling Verified 11/26/24 11:17 latex AdvReac Swelling Verified 11/26/24 11:17 Family History Mother Hypertension Surgical History S/P laparoscopic cholecystectomy S/P hysterectomy H/O laminectomy History of partial nephrectomy History of tonsillectomy History of total knee arthroplasty History of total abdominal hysterectomy Social History Smoking Status: Never smoker ROS Constitutional Constitutional: Reports chills, fatigue, fever(s) and weakness Eyes Eyes: Denies change in vision Cardiovascular Cardiovascular: Denies chest pain Respiratory/Chest Respiratory/Chest: Denies cough, shortness of breath at rest, shortness of breath with exertion or wheezing Gastrointestinal Gastrointestinal: Denies abdominal pain, constipation, diarrhea, nausea or vomiting Genitourinary Genitourinary: Denies dysuria Musculoskeletal Musculoskeletal: Denies arthralgias or myalgias Neurologic Neurologic: Denies dizziness, headache(s), numbness or paresthesias Vital Signs Vital Signs Vital Signs: 11/26/24 11:13 11/26/24 11:17 11/26/24 11:22 Temperature 98.7 F 98.2 F Temperature Source Oral Oral Pulse Rate 76 67 Respiratory Rate 16 16 Respiratory Effort Normal Respiratory Depth Normal Respiratory Pattern Normal Blood Pressure 191/90 H 191/90 H Blood Pressure Mean 123 123 Pulse Ox 95 95 95 Oxygen Delivery Method Room Air Room Air Room Air 11/26/24 13:06 11/26/24 15:00 11/26/24 15:20 Temperature 99 F Temperature Source Pulse Rate 68 70 71 Respiratory Rate 16 13 20 H Respiratory Effort Respiratory Depth Respiratory Pattern Blood Pressure 169/70 H 150/78 H 166/68 H Blood Pressure Mean 103 100 100 Pulse Ox 95 95 95 Oxygen Delivery Method Weight Weight: 110.2 kg Body Mass Index (BMI) 44.4 Physical Exam Const alert, oriented x3 and no apparent distress Constitutional Narrative: Elderly female, class III obesity, mildly fatigued appearing but otherwise sitting back comfortablyin bed, conversing normally, in no acute distress. General Appearance: cooperative and comfortable HEENT normocephalic, head/scalp atraumatic, hearing grossly normal bilaterally, nasal mucous membranes and turbinates normal and moist oral mucous membranes Eyes PERRL, EOMs intact bilaterally and conjunctivae normal Neck full ROM Chest inspection of chest normal Resp normal respiratory effort, no use of accessory muscles and clear to auscultationbilaterally Cardio regular rate, regular rhythm, no murmurs and peripheral pulses 2+ throughout GI normal to inspection, nondistended, normoactive bowel sounds, soft to palpation,non-tender and non-distended Back/Spine normal ROM Extremity normal to inspection, full ROM and no pedal edema Skin no rashes or lesions noted Neuro moves all extremities and no focal motor deficits Speech: speech normal Psych mental status grossly normal Results Lab / Micro Data 11/26/24 14:05 11/26/24 14:05 Labs: Laboratory Results - last 24 hr 11/26/24 14:05: WBC 5.1, RBC 3.83 L, Hgb 11.7 L, Hct 36.2 L, MCV 94.5, MCH 30.5,MCHC 32.3, RDW Std Deviation 43.9, RDW Coeff of [place] 12.8, Plt Count 142 L, MPV 10.2, Immature Gran % (Auto) 0.400, Neut% (Auto) 71.0 H, Lymph % (Auto) 15.0 L,[place] % (Auto) 12.2 H, Eos % (Auto) 1.2, Baso % (Auto) 0.2, Absolute Neuts (auto)3.6, Absolute Lymphs (auto) 0.76 L, Nucleated RBC % 0, Sodium 138, Potassium 4.1, Chloride 101, Carbon Dioxide 25.6, Anion Gap 11, BUN 11, Creatinine 0.72, Estim Creat Clear Calc 64.55, Est GFR (MDRD) Non-Af 83, BUN/Creatinine Ratio 15.1, Glucose 108 H, Lactic Acid < 1.0, Calcium 9.4, Total Bilirubin 0.49, AST 27, ALT < 5, Alkaline Phosphatase 66, Total Protein 6.1, Albumin 3.7, Globulin 2.4, Albumin/Globulin Ratio 1.5, Urine Color Yellow, Urine Clarity Clear, Urine pH 7.0, Ur Specific [place] 1.010, Urine Protein 15 H, Urine Glucose (UA) Normal, Urine Ketones Negative, Urine Occult Blood 10 H, Urine Nitrite Negative,Urine Bilirubin Negative, Urine Urobilinogen 1 H,Ur Leukocyte Esterase Negative, Urine RBC 0-5 SEEN, Urine WBC 0-5 SEEN, Ur Squamous Epith Cells 0-5SEEN, Urine Bacteria 0 SEEN, Urine Mucus 0 SEEN Micro: Microbiology 11/26/24 13:40 Mucosa - Nose SARS-CoV-2, Influenza & RSV (PCR) - Final SARS-CoV-2 (COVID 19 PCR) Imaging Radiology Impression Brain CT 11/26/24 13:27 IMPRESSION: Cerebral atrophy. There is a 9.2 mm hypodensity in the left superior left cerebellar peduncle. Correlation with MRI recommended. Opacification of the ethmoid sinuses bilaterally as well as the left sphenoid sinus. Reading Location: [id number] Chest X-Ray 11/26/24 14:35 IMPRESSION: No acute abnormality is seen. Reading Location: [facility] Knee X-Ray 11/26/24 15:38 IMPRESSION: Status post total knee replacement. No acute abnormality is seen. Reading Location: [id number] Assessment & Plan Assessment/Plan (1) Debility: (2) Weakness: PLAN: Plan Patient is an 79-year-old female who presented to [facility] ED on 11/26/2024 with weakness and a fall at home. 1. Acute on chronic debility ? Admit under observation status to PCU. PT/OT/case management consulted. Suspect worsening weakness is multifactorial from recent rounds of immunotherapytreatment in September followed by COVID infection. Suspect patient will need SNFon discharge but will follow-up therapy recommendations. 2. COVID-19 positive ? COVID-19 positive on this admit. However, patient reported having initial COVID diagnosis about 7weeks ago. Chest x-ray unremarkable and patient stable on room air. Mild dry cough noted. No need for treatment with steroids or remdesivir. Symptomatic management. No need for isolation precautions at this time. 3. History of non-Hodgkin's lymphoma with recent immunotherapy treatment ? Follows with Dr. Quintero. Had 4 rounds of Rituxan infusion therapy done on a weekly basis in September. Plan was for repeat CT scan 6 weeks later to reevaluate her lesions. No inpatient needs, continueclose outpatient follow-up. 4. Left cerebellar hypodensity ? CT brain without contrast called a 9.2 mm hypodensity in the superior left cerebellar peduncle. ED physician discussed with on-call neurology who suspected either subacute versus old stroke and recommended MRI brain for further evaluation. MRI brain showed no acute intracranial abnormality, only chronic small vessel ischemic changes. No further workup needed at this time. Chronic medical conditions: ? Class III obesity: BMI 41 on admit. Complicates hospital course, care and prognosis. ? 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 ? Hypothyroidism: Continue home Synthroid. ? Hypertension: Continue home Coreg, clonidine, hydralazine, and losartan. ? Depression: Continue home paroxetine. ? Neuropathy: Continue home gabapentin. ? GERD: Continue home omeprazole. ? History of bilateral remote knee replacements DVT prophylaxis: Not indicated, on Eliquis CODE STATUS: Full code, verified Expected disposition: Likely SNF, 1 to 2 days Total clinical time spent by myself addressing the patient's medical issues, reviewing all the data, and collaborating with patient's care team: 75 minutes. Charges/Coding Visit Charges Inpatient E&M: 38335 Init Hosp L3 11/26/242018 Cosigner Signature (if applicable): CC: Dr. Jaxson Meehan DO; Dr. Sylvia Lizama MD~ Signed [facility]03-07-2025 Discharge summary Author Tanisha Bahena [facility] Note Date/Time November 26, 2024 4:04 pm [facility] Medical Records Department [address] [facility] [place] [address] Emergency Department Summary 11/26/24 MR#: [id number] Acct: [id number] Name: LISA UP Rep #:[id number] : 1945 79 From: Tanisha Reynolds PCP: Dr. Sylvia Lizama MD Status:ADM I NO Location: [place] [address] HPI History of Present Illness Chief Complaint: Fall Informant: patient and family Narrative Narrative: Patient is 79-year-old female with history of sleep apnea, restless leg, neuropathy, GERD, CHRISTIANA, hypertension and weakness presenting with continued cough, fevers and respiratory illness. Patient states she had a fever last night of 101 with associated chills. She was sweating taken off her close because she was sweating so much when she fell. She is not sure if she passed out but she landed on the ground. She does not think she hit her head. States she was too weak to get up and was on the floor all night. She does live home alone. She notes she has been having some ongoing nausea and intermittent diarrhea. Denies any vomiting. States for the past few weeks she is also been having dizziness lightheadedness. She was diagnosed with COVID at some point inthe past few weeks. She thinks it was about 2 weeks ago. She notes she is continue to have a cough has been productive of phlegm which she describes as cream-colored. Denies any chest pain currently but has been having some chest pain with all of this. Did hit her right knee when she fell and complain of pain there. Has a history of prior knee replacement. No other complaints or concerns reported at this time. Patient is on any blood thinners. [facility] Medical History DVT (deep venous thrombosis) Post-menopausal Dyspnea History of stress test Ovarian tumor Anticoagulant long-term use Non Hodgkin's lymphoma Dehiscence of surgical wound GERD (gastroesophageal reflux disease) Restless leg syndrome Peripheral neuropathy Osteoarthritis Hypertension Morbid obesity with BMI of 40.0-44.9, adult Home Medications ?Medication ?Instructions ?Recorded ?Last Taken ?Type potassium chloride 10 mEq 10 meq PO BID supplement 11/25/24 History tablet,extended release(part/cryst) multivitamin with folic acid 400 1 tab PO DAILY vitami n 08/01/18 11/25/24 History mcg tablet (Thera) apixaban 5 mg tablet 5 mg PO BID blood thinner 11/25/24 History levothyroxine 75 mcg tablet 75 mcg PO DAILY thyroid 11/25/24 History carvedilol 25 mg tablet 25 mg PO BID blood pressure 03/24/24 11/25/24 History gabapentin 400 mg capsule 400 mg PO TID nerve pain 12/1311/25/24 History hydralazine 50 mg tablet 50 mg PO BID blood pressure 03/24/24 11/25/24 History paroxetine HCl 10 mg tablet 10 mg PO DAILY mental heal th 03/24/24 11/25/24 History clonidine HCl 0.1 mg tablet 0.1 mg PO BID 30 days #60 tabs 03/26/24 11/25/24 Rx losartan 100 mg tablet 100 mg PO DAILY 07/04/2403/16 History meclizine 25 mg tablet 25 mg PO TID 07/04/24 Unknow n History omeprazole 20 mg capsule,delayed 20 mg PO DAILY PRN ac id reflux 07/04/24 11/25/24 History release albuterol sulfate 90 mcg/actuation 2 puff inhalation Q 4H PRN Wheezing 11/26/24 11/25/24 History aerosol inhaler (Ventolin HFA) Allergy/AdvReac Type Severity Reaction Status Date / Time COVID-19 vaccine, mRNA, Allergy Anaphylaxis Verified 11/26/24 11:17 [id number], erythromycin base Allergy Rash Verified 11/26/24 11:17 (Erythromycin Base) lisinopril Allergy Swelling Verified 11/26/24 11:17 venom-wasp (wasp) Allergy NEEDS Verified 11/26/24 11:17 FOLLOW-UP amlodipine AdvReac Swelling Verified 11/26/24 11:17 latex AdvReac Swelling Verified 11/26/24 11:17 Family History Mother Hypertension Surgical History S/P laparoscopic cholecystectomy S/P hysterectomy H/O laminectomy History of partial nephrectomy History of tonsillectomy History of total knee arthroplasty History of total abdominal hysterectomy Social History Smoking Status: Never smoker ROS ROS ED Constitutional Constitutional ED: Reports chills, fever(s) and sweats Eyes Eyes: Denies blurry vision or change in vision ENT ENT ED: Denies sore throat Cardiovascular Cardiovascular: Reports chest pain; Denies palpitations Respiratory/Chest Respiratory/Chest: Reports cough, dyspnea and sputum Gastrointestinal Gastrointestinal: Reports diarrhea and nausea; Denies abdominal pain or vomiting Musculoskeletal Musculoskeletal: Reports arthralgias and myalgias Integumentary Denies rash Neurologic Neurologic: Reports headache(s) and weakness; Denies paresthesias Hematologic/Lymphatic Hematologic/Lymphatic: Denies easy bleeding or easy bruising EXAM Physical Exam Const Vital Signs: 11/26/24 11:13 11/26/24 11:17 11/26/24 11:22 Temperature 98.7 F 98.2 F Temperature Source Oral Oral Pulse Rate 76 67 Respiratory Rate 16 16 Respiratory Effort Normal Respiratory Depth Normal Respiratory Pattern Normal Blood Pressure 191/90 H 191/90 H Blood Pressure Mean 123 123 Pulse Ox 95 95 95 Oxygen Delivery Method Room Air Room Air Room Air 11/26/24 13:06 11/26/24 15:00 11/26/24 15:20 Temperature 99 F Temperature Source Pulse Rate 68 70 71 Respiratory Rate 16 13 20 H Respiratory Effort Respiratory Depth Respiratory Pattern Blood Pressure 169/70 H 150/78 H 166/68 H Blood Pressure Mean 103 100 100 Pulse Ox 95 95 95 Oxygen Delivery Method Positive well nourished, well developed and obese General Appearance ED: well developed and NAD Nutritional Appearance: obese HEENT HEENT Narrative: Mildly dry mucosal membranes. Normal tympanic membranes bilaterally. Normal external ears. Head atraumatic. Eyes PERRL and EOMs intact bilaterally Neck supple and no JVD Chest Wall inspection of chest normal and palpation of chest normal Resp normal respiratory effort Resp Narrative: Intermittent harsh cough. Mildly bronchial breath sounds present Auscultation: Negative for rhonchi or wheezes Cardio regular rate and regular rhythm GI normal to inspection, nondistended, normoactive bowel sounds, non-tender and non-distended Back/Spine no CVA tenderness Thoracic Spine / Upper Back: Negative for thoracic spinal tenderness or paraspinal muscle tenderness Lumbar Spine / Lower Back: Negative for lumbar spinal tenderness Extremity normal to inspection Extremity Narrative: Localized erythema with mild tenderness with range of motion to the right knee. No pain with range of motion of the bilateral hips. Neuro oriented x3, CN's II-XII intact bilaterally and no sensory deficits noted Neuro Narrative: NIH equals 0 Sensorium / Orientation: alert Motor Exam: strength 5/5 throughout and general weakness Psych mental status grossly normal Skin Skin Narrative: Developing ecchymosis/swelling erythema over the anterior aspect of the right knee. MDM MDM MDM Narrative Medical decision making narrative: Patient evaluated for mid fevers, weakness and fall. Not able to get off the ground. Lives home alone. Differential includes sepsis, stroke, intracranial hemorrhage, rhabdomyolysis, symptomatic anemia, bacteremia, long COVID and urinary tract infection as well as pneumonia. Workup obtained including CT of the brain, chest x-ray, right knee x-ray (she struck her knee when she fell) as well as lab work and blood cultures. COVID test is still positive but she does not test positive for any new pathogens including influenza or RSV. CBC shows chronic appearing anemia with ahemoglobin 11.7 but this appears to be stable. She is 11.9 three weeks ago. Noleukocytosis. No left shift. CMP largely normal. Lactate normal. High sensitive troponin pending but EKG does not show any acute ischemic changes. CPK added on because she was on the floor overnight but still pending. Urinalysis not consistent with infection. Chest x- ray viewed by myself as well as radiology does not show any acute process. X-ray of the knee does not show any acute abnormality with status post prior arthroplasty. CT of the brain does show 9.2 mm hypodensity of the left superior left cerebellar peduncle. Recommends MRI for further evaluation. Neurologic evaluation does not show any focal deficits. Case is discussed with hospitalist for admission given her weakness and debility. Recurrent fevers could be secondary to continued COVID symptoms however cultures are pending. Lower suspicion for bacteremia given her normal white blood cell count and normal lactate. Chest x-rays not show any pneumonia I do not think she requires antibiotics at this time. Spoke with hospitalist who does request that I speak with [facility] neurology given the size of the hypodensity on the CT of her brain in case she would require further transfer/other workup and an MRI. Spoke with Dr. Goss who recommends MRI but no further recommendations at this time. Suspect she might have had a stroke given her weakness and fall. Patient is admitted to hospitalist service. Patient and family agreeable this plan of care. Lab Data Attestation: I reviewed the patient's lab results. Labs: Laboratory Results - last 24 hr 11/26/24 14:05 WBC 5.1 RBC 3.83 L Hgb 11.7 L Hct 36.2 L MCV 94.5 MCH 30.5 MCHC 32.3 RDW Std Deviation 43.9 RDW Coeff of [place] 12.8 Plt Count 142 L MPV 10.2 Immature Gran % (Auto) 0.400 Neut % (Auto) 71.0 H Lymph % (Auto) 15.0 L [place] % (Auto) 12.2 H Eos % (Auto) 1.2 Baso % (Auto) 0.2 Absolute Neuts (auto) 3.6 Absolute Lymphs (auto) 0.76 L Nucleated RBC % 0 Sodium 138 Potassium 4.1 Chloride 101 Carbon Dioxide 25.6 Anion Gap 11 BUN 11 Creatinine 0.72 Estim Creat Clear Calc 64.55 Est GFR (MDRD) Non-Af 83 BUN/Creatinine Ratio 15.1 Glucose 108 H Lactic Acid < 1.0 Calcium 9.4 Total Bilirubin 0.49 AST 27 ALT < 5 Alkaline Phosphatase 66 Total Protein 6.1 Albumin 3.7 Globulin 2.4 Albumin/Globulin Ratio 1.5 Urine Color Yellow Urine Clarity Clear Urine pH 7.0 Ur Specific [place] 1.010 Urine Protein 15 H Urine Glucose (UA) Normal Urine Ketones Negative Urine Occult Blood 10 H Urine Nitrite Negative Urine Bilirubin Negative Urine Urobilinogen 1 H Ur Leukocyte Esterase Negative Urine RBC 0-5 SEEN Urine WBC 0-5 SEEN Ur Squamous Epith Cells 0-5 SEEN Urine Bacteria 0 SEEN Urine Mucus 0 SEEN Radiography Diagnostic Testing: Clinical Impression(s) from Imaging Studies Brain CT 11/26/24 13:27 IMPRESSION: Cerebral atrophy. There is a 9.2 mm hypodensity in the left superior left cerebellar peduncle. Correlation with MRI recommended. Opacification of the ethmoid sinuses bilaterally as well as the left sphenoid sinus. Reading Location: [id number] Chest X-Ray 11/26/24 14:35 IMPRESSION: No acute abnormality is seen. Reading Location: [id number] Knee X-Ray 11/26/24 15:38 IMPRESSION: Status post total knee replacement. No acute abnormality is seen. 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 Call [facility] ([phone]) or report to the closest Emergency Room. Call 911 if necessary. 11/26/24 1704 <Electronically signed by Tanisha Bahena DO> Cosigner Signature (if applicable): CC: Dr. Sylvia Lizama MD ~ Signed [facility] Work Phone: [phone] 363-420503-07-2025 Discharge summary [facility] Medical Records Department [address] [place] [id number] Emergency Department Summary 11/26/24 MR#: [id number] Acct: [id number] Name: LISA UP Rep #:[id number] : 1945 79 From: Tanisha Reynolds PCP: Dr. Sylvia Lizama MD Status:ADM I NO Location: [place] [address] HPI History of Present Illness Chief Complaint: Fall Informant: patient and family Narrative Narrative: Patient is 79-year-old female with history of sleep apnea, restless leg, neuropathy, GERD, CHRISTIANA, hypertension and weakness presenting with continued cough, fevers and respiratory illness. Patient states she had a fever last night of 101 with associated chills. She was sweating taken off her close because she was sweating so much when she fell. She is not sure if she passed out but she landed on the ground. She does not think she hit her head. States she was too weak to get up and was on the floor all night. She does live home alone. She notes she has been having some ongoing nausea and intermittent diarrhea. Denies any vomiting. States for the past few weeks she is also been having dizziness lightheadedness. She was diagnosed with COVID at some point inthe past few weeks. She thinks it wasabout 2 weeks ago. She notes she is continue to have a cough has been productive of phlegm which she describes as cream-colored. Denies any chest pain currently but has been having some chest pain with all of this. Did hit her right knee when she fell and complain of pain there. Has a history of prior knee replacement. No other complaints or concerns reported at this time. Patient is on any blood thinners. [facility] Medical History DVT (deep venous thrombosis) Post-menopausal Dyspnea History of stress test Ovarian tumor Anticoagulant long-term use Non Hodgkin's lymphoma Dehiscence of surgical wound GERD (gastroesophageal reflux disease) Restless leg syndrome Peripheral neuropathy Osteoarthritis Hypertension Morbid obesity with BMI of 40.0-44.9, adult Home Medications ?Medication ?Instructions ?Recorded ?Last Taken ?Type potassium chloride 10 mEq 10 meq PO BID supplement 11/25/24 History tablet,extended release(part/cryst) multivitamin with folic acid 400 1 tab PO DAILY vitami n 08/01/18 11/25/24 History mcg tablet (Thera) apixaban 5 mg tablet 5 mg PO BID blood thinner 11/25/24 History levothyroxine 75 mcg tablet 75 mcg PO DAILY thyroid 11/25/24 History carvedilol 25 mg tablet 25 mg PO BID blood pressure 03/24/24 11/25/24 History gabapentin 400 mg capsule 400 mg PO TID nerve pain 12/1311/25/24 History hydralazine 50 mg tablet 50 mg PO BID blood pressure 03/24/24 11/25/24 History paroxetine HCl 10 mg tablet 10 mg PO DAILY mental heal 03/24/24 11/25/24 History clonidine HCl 0.1 mg tablet 0.1 mg PO BID 30 days #60 tabs 03/26/24 11/25/24 Rx losartan 100 mg tablet 100 mg PO DAILY 07/04/2403/16 History meclizine 25 mg tablet 25 mg PO TID 07/04/24 Unknow n History omeprazole 20 mg capsule,delayed 20 mg PO DAILY PRN ac id reflux 07/04/24 11/25/24 History release albuterol sulfate 90 mcg/actuation 2 puff inhalation Q 4H PRN Wheezing 11/26/24 11/25/24 History aerosol inhaler (Ventolin HFA) Allergy/AdvReac Type Severity Reaction Status Date / Time COVID-19 vaccine, mRNA, Allergy Anaphylaxis Verified 11/26/24 11:17 [id number], erythromycin base Allergy Rash Verified 11/26/24 11:17 (Erythromycin Base) lisinopril Allergy Swelling Verified 11/26/24 11:17 venom-wasp (wasp) Allergy NEEDS Verified 11/26/24 11:17 FOLLOW-UP amlodipine AdvReac Swelling Verified 11/26/24 11:17 latex AdvReac Swelling Verified 11/26/24 11:17 Family History Mother Hypertension Surgical History S/P laparoscopic cholecystectomy S/P hysterectomy H/O laminectomy History of partial nephrectomy History of tonsillectomy History of total knee arthroplasty History of total abdominal hysterectomy Social History Smoking Status: Never smoker ROS ROS ED Constitutional Constitutional ED: Reports chills, fever(s) and sweats Eyes Eyes: Denies blurry vision or change in vision ENT ENT ED: Denies sore throat Cardiovascular Cardiovascular: Reports chest pain; Denies palpitations Respiratory/Chest Respiratory/Chest: Reports cough, dyspnea and sputum Gastrointestinal Gastrointestinal: Reports diarrhea and nausea; Denies abdominal pain or vomiting Musculoskeletal Musculoskeletal: Reports arthralgias and myalgias Integumentary Denies rash Neurologic Neurologic: Reports headache(s) and weakness; Denies paresthesias Hematologic/Lymphatic Hematologic/Lymphatic: Denies easy bleeding or easy bruising EXAM Physical Exam Const Vital Signs: 11/26/24 11:13 11/26/24 11:17 11/26/24 11:22 Temperature 98.7 F 98.2 F Temperature Source Oral Oral Pulse Rate 76 67 Respiratory Rate 16 16 Respiratory Effort Normal Respiratory Depth Normal Respiratory Pattern Normal Blood Pressure 191/90 H 191/90 H Blood Pressure Mean 123 123 Pulse Ox 95 95 95 Oxygen Delivery Method Room Air Room Air Room Air 11/26/24 13:06 11/26/24 15:00 11/26/24 15:20 Temperature 99 F Temperature Source Pulse Rate 68 70 71 Respiratory Rate 16 13 20 H Respiratory Effort Respiratory Depth Respiratory Pattern Blood Pressure 169/70 H 150/78 H 166/68 H Blood Pressure Mean 103 100 100 Pulse Ox 95 95 95 Oxygen Delivery Method Positive well nourished, well developed and obese General Appearance ED: well developed and NAD Nutritional Appearance: obese HEENT HEENT Narrative: Mildly dry mucosal membranes. Normal tympanic membranes bilaterally. Normal external ears. Head atraumatic. Eyes PERRL and EOMs intact bilaterally Neck supple and no JVD Chest Wall inspection of chest normal and palpation of chest normal Resp normal respiratory effort Resp Narrative: Intermittent harsh cough. Mildly bronchial breath sounds present Auscultation: Negative for rhonchi or wheezes Cardio regular rate and regular rhythm GI normal to inspection, nondistended, normoactive bowel sounds, non-tender and non-distended Back/Spine no CVA tenderness Thoracic Spine / Upper Back: Negative for thoracic spinal tenderness or paraspinal muscle tenderness Lumbar Spine / Lower Back: Negative for lumbar spinal tenderness Extremity normal to inspection Extremity Narrative: Localized erythema with mild tenderness with range of motion to the right knee. No pain with range of motion of the bilateral hips. Neuro oriented x3, CN's II-XII intact bilaterally and no sensory deficits noted Neuro Narrative: NIH equals 0 Sensorium / Orientation: alert Motor Exam: strength 5/5 throughout and general weakness Psych mental status grossly normal Skin Skin Narrative: Developing ecchymosis/swelling erythema over the anterior aspect of the right knee. MDM MDM MDM Narrative Medical decision making narrative: Patient evaluated for mid fevers, weakness and fall. Not able to get off the ground. Lives home alone. Differential includes sepsis, stroke, intracranial hemorrhage, rhabdomyolysis, symptomatic anemia, bacteremia, long COVID and urinary tract infection as well as pneumonia. Workup obtained including CT of the brain, chest x-ray, right knee x-ray (she struck her knee when she fell) as well as lab work and blood cultures. COVID test is still positive but she does not test positive for any new pathogens including influenza or RSV. CBC shows chronic appearing anemia with ahemoglobin 11.7 but this appears to be stable. She is 11.9 three weeks ago. Noleukocytosis. No left shift. CMP largely normal. Lactate normal. High s ensitive troponin pending but EKG does not show any acute ischemic changes. CPK added on because she was on the floor overnight but still pending. Urinalysis not consistent with infection. Chest x-ray viewed by myself as well as radiology does not show any acute process. X-ray of the knee does not show any acute abnormality with status post prior arthroplasty. CT of the brain does show 9.2 mm hypodensity of the left superior left cerebellar peduncle. Recommends MRI for further evaluation. Neurologic evaluation does not show any focal deficits. Case is discussed with hospitalist for admission given her weakness and debility. Recurrent fevers could be secondary to continued COVID symptoms however cultures are pending. Lower suspicion for bacteremia given her normal white blood cell count and normal lactate. Chest x-rays not show any pneumonia I do not think she requires antibiotics at this time. Spoke with hospitalist who does request that I speak with [facility] neurology given the size of the hypodensity on the CT of her brain in case she would require further transfer/other workup and an MRI. Spoke with Dr. Goss who recommends MRI but no further recommendations at this time. Suspect she might have had a stroke given her weakness and fall. Patient is admitted to hospitalist service. Patient and family agreeable this plan of care. Lab Data Attestation: I reviewed the patient's lab results. Labs: Laboratory Results - last 24 hr 11/26/24 14:05 WBC 5.1 RBC 3.83 L Hgb 11.7 L Hct 36.2 L MCV 94.5 MCH 30.5 MCHC 32.3 RDW Std Deviation 43.9 RDW Coeff of [place] 12.8 Plt Count 142 L MPV 10.2 Immature Gran % (Auto) 0.400 Neut % (Auto) 71.0 H Lymph % (Auto) 15.0 L [place] % (Auto) 12.2 H Eos % (Auto) 1.2 Baso % (Auto) 0.2 Absolute Neuts (auto) 3.6 Absolute Lymphs (auto) 0.76 L Nucleated RBC % 0 Sodium 138 Potassium 4.1 Chloride 101 Carbon Dioxide 25.6 Anion Gap 11 BUN 11 Creatinine 0.72 Estim Creat Clear Calc 64.55 Est GFR (MDRD) Non-Af 83 BUN/Creatinine Ratio 15.1 Glucose 108 H Lactic Acid < 1.0 Calcium 9.4 Total Bilirubin 0.49 AST 27 ALT < 5 Alkaline Phosphatase 66 Total Protein 6.1 Albumin 3.7 Globulin 2.4 Albumin/Globulin Ratio 1.5 Urine Color Yellow Urine Clarity Clear Urine pH 7.0 Ur Specific [place] 1.010 Urine Protein 15 H Urine Glucose (UA) Normal Urine Ketones Negative Urine Occult Blood 10 H Urine Nitrite Negative Urine Bilirubin Negative Urine Urobilinogen 1 H Ur Leukocyte Esterase Negative Urine RBC 0-5 SEEN Urine WBC 0-5 SEEN Ur Squamous Epith Cells 0-5 SEEN Urine Bacteria 0 SEEN Urine Mucus 0 SEEN Radiography Diagnostic Testing: Clinical Impression(s) from Imaging Studies Brain CT 11/26/24 13:27 IMPRESSION: Cerebral atrophy. There is a 9.2 mm hypodensity in the left superior left cerebellar peduncle. Correlation with MRI recommended. Opacification of the ethmoid sinuses bilaterally as well as the left sphenoid sinus. Reading Location: [facility] Chest X-Ray 11/26/24 14:35 IMPRESSION: No acute abnormality is seen. Reading Location: [id number] Knee X-Ray 11/26/24 15:38 IMPRESSION: Status post total knee replacement. No acute abnormality is seen. Reading Location: [id number] Rhythm Strip Rhythm Strip: Sinus Rhythm Rate: 68 Ectopy: None EKG Initial EKG: Attestation: I personally reviewed and interpreted this EKG as follows: Interpretation: Sinus Rhythm Comments: Normal sinus rhythm at a rate of 68 bpm Normal axis Normal intervals Normal ST segments Prior EKG tracings: available for review Prior: Unchanged Management Discussion w/another healthcare provider: Hospitalist and [facility] Discharge Plan Triage Chief Complaint: Fall ED Provider: Tanisha Bahena Dx/Rx/DC Orders Clinical Impression: Fall, Debility, Abnormal brain CT Primary Care Provider: Sylvia Lizama Disposition Disposition: Acute Care [facility] What to do if you have Problems For any increased pain, shortness of breath, bleeding, nausea or vomiting, chestpain, or any unexpected problems, contact your Primary Care Provider. Call [facility] ([phone]) or report tothe closest Emergency Room. Call 911 if necessary. 11/26/24 1704 Cosigner Signature (if applicable): CC: Dr. Sylvia Lizama MD ~ Signed [facility]03-07-[facility]25 Discharge summary [facility] Medical Records Department [address] [facility] [place] [address] Emergency Department Summary 11/26/24 MR#: [id number] Acct: [id number] Name: LISA UP Rep #:[id number] : 1945 79 From: Tanisha Reynolds PCP: Dr. Sylvia Lizama MD Status:ADM I NO Location: [place] [address] HPI History of Present Illness Chief Complaint: Fall Informant: patient and family Narrative Narrative: Patient is 79-year-old female with history of sleep apnea, restless leg, neuropathy, GERD, [place], hypertension and weakness presenting with continued cough, fevers and respiratory illness. Patient states she had a fever last night of 101 with associated chills. She was sweating taken off her close because she was sweating so much when she fell. She is not sure if she passed out but she landed on the ground. She does not think she hit her head. States she was too weak to get up and was on the floor all night. She does live home alone. She notes she has been having some ongoing nausea and intermittent diarrhea. Denies any vomiting. States for the past few weeks she is also been having dizziness lightheadedness. She was diagnosed with COVID at some point inthe past few weeks. She thinks it wasabout 2 weeks ago. She notes she is continue to have a cough has been productive of phlegm which she describes as cream-colored. Denies any chest pain currently but has been having some chest pain with all of this. Did hit her right knee when she fell and complain of pain there. Has a history of prior knee replacement. No other complaints or concerns reported at this time. Patient is on any blood thinners. [facility] Medical History DVT (deep venous thrombosis) Post-menopausal Dyspnea History of stress test Ovarian tumor Anticoagulant long-term use Non Hodgkin's lymphoma Dehiscence of surgical wound GERD (gastroesophageal reflux disease) Restless leg syndrome Peripheral neuropathy Osteoarthritis Hypertension Morbid obesity with BMI of 40.0-44.9, adult Home Medications ?Medication ?Instructions ?Recorded ?Last Taken ?Type potassium chloride 10 mEq 10 meq PO BID supplement 11/25/24 History tablet,extended release(part/cryst) multivitamin with folic acid 400 1 tab PO DAILY vitami n 08/01/18 11/25/24 History mcg tablet (Thera) apixaban 5 mg tablet 5 mg PO BID blood thinner 11/25/24 History levothyroxine 75 mcg tablet 75 mcg PO DAILY thyroid 11/25/24 History carvedilol 25 mg tablet 25 mg PO BID blood pressure 03/24/24 11/25/24 History gabapentin 400 mg capsule 400 mg PO TID nerve pain 12/1311/25/24 History hydralazine 50 mg tablet 50 mg PO BID blood pressure 03/24/24 11/25/24 History paroxetine HCl 10 mg tablet 10 mg PO DAILY mental heal th 03/24/24 11/25/24 History clonidine HCl 0.1 mg tablet 0.1 mg PO BID 30 days #60 tabs 03/26/24 11/25/24 Rx losartan 100 mg tablet 100 mg PO DAILY 07/04/2403/16 History meclizine 25 mg tablet 25 mg PO TID 07/04/24 Unknow n History omeprazole 20 mg capsule,delayed 20 mg PO DAILY PRN ac id reflux 07/04/24 11/25/24 History release albuterol sulfate 90 mcg/actuation 2 puff inhalation Q 4H PRN Wheezing 11/26/24 11/25/24 History aerosol inhaler (Ventolin HFA) Allergy/AdvReac Type Severity Reaction Status Date / Time COVID-19 vaccine, mRNA, Allergy Anaphylaxis Verified 11/26/24 11:17 [id number], erythromycin base Allergy Rash Verified 11/26/24 11:17 (Erythromycin Base) lisinopril Allergy Swelling Verified 11/26/24 11:17 venom-wasp (wasp) Allergy NEEDS Verified 11/26/24 11:17 FOLLOW-UP amlodipine AdvReac Swelling Verified 11/26/24 11:17 latex AdvReac Swelling Verified 11/26/24 11:17 Family History Mother Hypertension Surgical History S/P laparoscopic cholecystectomy S/P hysterectomy H/O laminectomy History of partial nephrectomy History of tonsillectomy History of total knee arthroplasty History of total abdominal hysterectomy Social History Smoking Status: Never smoker ROS ROS ED Constitutional Constitutional ED: Reports chills, fever(s) and sweats Eyes Eyes: Denies blurry vision or change in vision ENT ENT ED: Denies sore throat Cardiovascular Cardiovascular: Reports chest pain; Denies palpitations Respiratory/Chest Respiratory/Chest: Reports cough, dyspnea and sputum Gastrointestinal Gastrointestinal: Reports diarrhea and nausea; Denies abdominal pain or vomiting Musculoskeletal Musculoskeletal: Reports arthralgias and myalgias Integumentary Denies rash Neurologic Neurologic: Reports headache(s) and weakness; Denies paresthesias Hematologic/Lymphatic Hematologic/Lymphatic: Denies easy bleeding or easy bruising EXAM Physical Exam Const Vital Signs: 11/26/24 11:13 11/26/24 11:17 11/26/24 11:22 Temperature 98.7 F 98.2 F Temperature Source Oral Oral Pulse Rate 76 67 Respiratory Rate 16 16 Respiratory Effort Normal Respiratory Depth Normal Respiratory Pattern Normal Blood Pressure 191/90 H 191/90 H Blood Pressure Mean 123 123 Pulse Ox 95 95 95 Oxygen Delivery Method Room Air Room Air Room Air 11/26/24 13:06 11/26/24 15:00 11/26/24 15:20 Temperature 99 F Temperature Source Pulse Rate 68 70 71 Respiratory Rate 16 13 20 H Respiratory Effort Respiratory Depth Respiratory Pattern Blood Pressure 169/70 H 150/78 H 166/68 H Blood Pressure Mean 103 100 100 Pulse Ox 95 95 95 Oxygen Delivery Method Positive well nourished, well developed and obese General Appearance ED: well developed and NAD Nutritional Appearance: obese HEENT HEENT Narrative: Mildly dry mucosal membranes. Normal tympanic membranes bilaterally. Normal external ears. Head atraumatic. Eyes PERRL and EOMs intact bilaterally Neck supple and no JVD Chest Wall inspection of chest normal and palpation of chest normal Resp normal respiratory effort Resp Narrative: Intermittent harsh cough. Mildly bronchial breath sounds present Auscultation: Negative for rhonchi or wheezes Cardio regular rate and regular rhythm GI normal to inspection, nondistended, normoactive bowel sounds, non-tender and non-distended Back/Spine no CVA tenderness Thoracic Spine / Upper Back: Negative for thoracic spinal tenderness or paraspinal muscle tenderness Lumbar Spine / Lower Back: Negative for lumbar spinal tenderness Extremity normal to inspection Extremity Narrative: Localized erythema with mild tenderness with range of motion to the right knee. No pain with range of motion of the bilateral hips. Neuro oriented x3, CN's II-XII intact bilaterally and no sensory deficits noted Neuro Narrative: NIH equals 0 Sensorium / Orientation: alert Motor Exam: strength 5/5 throughout and general weakness Psych mental status grossly normal Skin Skin Narrative: Developing ecchymosis/swelling erythema over the anterior aspect of the right knee. MDM MDM MDM Narrative Medical decision making narrative: Patient evaluated for mid fevers, weakness and fall. Not able to get off the ground. Lives home alone. Differential includes sepsis, stroke, intracranial hemorrhage, rhabdomyolysis, symptomatic anemia, bacteremia, long COVID and urinary tract infection as well as pneumonia. Workup obtained including CT of the brain, chest x-ray, right knee x-ray (she struck her knee when she fell) as well as lab work and blood cultures. COVID test is still positive but she does not test positive for any new pathogens including influenza or RSV. CBC shows chronic appearing anemia with ahemoglobin 11.7 but this appears to be stable. She is 11.9 three weeks ago. Noleukocytosis. No left shift. CMP largely normal. Lactate normal. High s ensitive troponin pending but EKG does not show any acute ischemic changes. CPK added on because she was on the floor overnight but still pending. Urinalysis not consistent with infection. Chest x-ray viewed by myself as well as radiology does not show any acute process. X-ray of the knee does not show any acute abnormality with status post prior arthroplasty. CT of the brain does show 9.2 mm hypodensity of the left superior left cerebellar peduncle. Recommends MRI for further evaluation. Neurologic evaluation does not show any focal deficits. Case is discussed with hospitalist for admission given her weakness and debility. Recurrent fevers could be secondary to continued COVID symptoms however cultures are pending. Lower suspicion for bacteremia given her normal white blood cell count and normal lactate. Chest x-rays not show any pneumonia I do not think she requires antibiotics at this time. Spoke with hospitalist who does request that I speak with [facility] neurology given the size of the hypodensity on the CT of her brain in case she would require further transfer/other workup and an MRI. Spoke with Dr. Goss who recommends MRI but no further recommendations at this time. Suspect she might have had a stroke given her weakness and fall. Patient is admitted to hospitalist service. Patient and family agreeable this plan of care. Lab Data Attestation: I reviewed the patient's lab results. Labs: Laboratory Results - last 24 hr 11/26/24 14:05 WBC 5.1 RBC 3.83 L Hgb 11.7 L Hct 36.2 L MCV 94.5 MCH 30.5 MCHC 32.3 RDW Std Deviation 43.9 RDW Coeff of [place] 12.8 Plt Count 142 L MPV 10.2 Immature Gran % (Auto) 0.400 Neut % (Auto) 71.0 H Lymph % (Auto) 15.0 L [place] % (Auto) 12.2 H Eos % (Auto) 1.2 Baso % (Auto) 0.2 Absolute Neuts (auto) 3.6 Absolute Lymphs (auto) 0.76 L Nucleated RBC % 0 Sodium 138 Potassium 4.1 Chloride 101 Carbon Dioxide 25.6 Anion Gap 11 BUN 11 Creatinine 0.72 Estim Creat Clear Calc 64.55 Est GFR (MDRD) Non-Af 83 BUN/Creatinine Ratio 15.1 Glucose 108 H Lactic Acid < 1.0 Calcium 9.4 Total Bilirubin 0.49 AST 27 ALT < 5 Alkaline Phosphatase 66 Total Protein 6.1 Albumin 3.7 Globulin 2.4 Albumin/Globulin Ratio 1.5 Urine Color Yellow Urine Clarity Clear Urine pH 7.0 Ur Specific [place] 1.010 Urine Protein 15 H Urine Glucose (UA) Normal Urine Ketones Negative Urine Occult Blood 10 H Urine Nitrite Negative Urine Bilirubin Negative Urine Urobilinogen 1 H Ur Leukocyte Esterase Negative Urine RBC 0-5 SEEN Urine WBC 0-5 SEEN Ur Squamous Epith Cells 0-5 SEEN Urine Bacteria 0 SEEN Urine Mucus 0 SEEN Radiography Diagnostic Testing: Clinical Impression(s) from Imaging Studies Brain CT 11/26/24 13:27 IMPRESSION: Cerebral atrophy. There is a 9.2 mm hypodensity in the left superior left cerebellar peduncle. Correlation with MRI recommended. Opacification of the ethmoid sinuses bilaterally as well as the left sphenoid sinus. Reading Location: [id number] Chest X-Ray 11/26/24 14:35 IMPRESSION: No acute abnormality is seen. Reading Location: [id number] Knee X-Ray 11/26/24 15:38 IMPRESSION: Status post total knee replacement. No acute abnormality is seen. Reading Location: [id number] Rhythm Strip Rhythm Strip: Sinus Rhythm Rate: 68 Ectopy: None EKG Initial EKG: Attestation: I personally reviewed and interpreted this EKG as follows: Interpretation: Sinus Rhythm Comments: Normal sinus rhythm at a rate of 68 bpm Normal axis Normal intervals Normal ST segments Prior EKG tracings: available for review Prior: Unchanged Management Discussion w/another healthcare provider: Hospitalist and Door Paneler Discharge Plan Triage Chief Complaint: Fall ED Provider: Tanisha Bahena Dx/Rx/DC Orders Clinical Impression: Fall, Debility, Abnormal brain CT Primary Care Provider: Sylvia Lizama Disposition Disposition: Acute Care [facility] What to do if you have Problems For any increased pain, shortness of breath, bleeding, nausea or vomiting, chestpain, or any unexpected problems, contact your Primary Care Provider. Call [facility] ([phone]) or report tothe closest Emergency Room. Call 911 if necessary. 11/26/24 0990 Cosigner Signature (if applicable): CC: Dr. Sylvia Lizama MD ~ Signed [facility]03-07-2025 Radiology Diagnostic study note [facility] Imaging Services [address] [place] [id number] Knee 4 or More Views MR#: [id number] Acct: [id number] Name: LISA UP Rep #: [id number] : 1945 F 79 From: Ej Almanzar MD PCP: Dr. Sylvia Lizama MD Status: REG E R Study:Knee 4 or More Views Date of Exam: 11/26/24 Exam# [id number] Ordering Dr: Mingo Bahena DO PROCEDURE: KNEE 4 OR MORE VIEWS REASON FOR EXAM: Pain and difficulty with ambulation following a fall. TECHNIQUE: 4 view(s) of the right knee COMPARISON: None. FINDINGS: The patient is status post right total knee replacement. There is good alignment. No evidence of joint effusion. RAD/Knee 4 or More Views IMPRESSION: Status post total knee replacement. No acute abnormality is seen. Reading Location: [id number] CC: Dr. Tanisha Bahena DO; Dr. Sylvia Lizama MD ~ Software Engineer Backend: Signed [facility]03-07-2025 Telephone encounter Note* Telephone Encounter - Shannon Hui RN - 11/26/2024 3:33 PM EST Noted. Thank you. Shannon Hui RN [facility]03-07-2025 Miscellaneous Notes* Telephone Encounter - Shannon Hui RN - 11/26/2024 3:33 PM EST Noted. Thank you. Shannon Hui RN * Telephone Encounter - Rossana Escalona LPN - 11/26/2024 2:47 PM EST Spoke with daughter and patient. CT results given. Dr Quintero would like to see her a couple weeks after discharge when she if feeling better. Agreeable to plan. Will let us know when she is able to come in for visit, will call and set up apt. (ER today for bronchitis and fall at home) Rossana Escalona LPN * Telephone Encounter - César Quintero DO - 11/26/2024 1:36 PM EST Can let her know the CT scans showed good response of the lymphoma without complete resolution of the lymphoma. Set up office visit several weeks down the road when she is feeling better. César Quintero DO * Telephone Encounter - María Elena Louis - 11/26/2024 8:39 AM EST Sabrina called to cancel office visit with Dr. Quintero today. Patient is on her way to ED. Sabrina states patient has been sick for several weeks. She has fever, weakness. Sabrina is asking if possible to have a phone call instead of office visit when patient is discharged (if admitted) documented in this [facility] Radiology Diagnostic study note [facility] Imaging Services [address] [place] [address] [id number] Knee 4 or More Views MR#: [id number] Acct: [id number] Name: LISA UP Rep #: [id number] : 1945 F 79 From: Ej Almanzar MD PCP: Dr. Sylvia Lizama MD Status: REG E R Study:Knee 4 or More Views Date of Exam: 11/26/24 Exam# [id number] Ordering Dr: Mingo Bahena DO PROCEDURE: KNEE 4 OR MORE VIEWS REASON FOR EXAM: Pain and difficulty with ambulation following a fall. TECHNIQUE: 4 view(s) of the right knee COMPARISON: None. FINDINGS: The patient is status post right total knee replacement. There is good alignment. No evidence of joint effusion. RAD/Knee 4 or More Views IMPRESSION: Status post total knee replacement. No acute abnormality is seen. Reading Location: [id number] CC: Dr. Tanisha Bahena DO; Dr. Sylvia Lizama MD ~ Software Engineer Backend: Signed [facility]03-07-2025 Radiology Diagnostic study note [facility] Imaging Services [address] [place] [address] Chest PA and Lateral MR#: [id number] Acct: [id number] Name: LISA UP Rep #: [id number] : 1945 79 From: Ej Almanzar MD PCP: Dr. Sylvia Lizama MD Status: REG E R Study:Chest PA and Lateral Date of Exam: 11/26/24 Exam# [id number] Ordering Dr: Mingo Bahena DO PROCEDURE: CHEST PA AND LATERAL REASON FOR EXAM: Weakness, cough and chills. TECHNIQUE: Frontal and lateral views of the chest. COMPARISON: Comparison is made with prior study dated November 06, 2024. FINDINGS: EKG electrodes are seen. The heart is not enlarged. The lungs are clear. RAD/Chest PA and Lateral IMPRESSION: No acute abnormality is seen. Reading Location: [facility] CC: Dr. Tanisha Bahena DO; Dr. Sylvia Lizama MD ~ Software Engineer Backend: Signed [facility]03-07-2025 Radiology Diagnostic study note [facility] Imaging Services [address] [place] [address] Brain/Head without Contrast MR#: [id number] Acct: [id number] Name: LISA UP Rep #: [id number] : 1945 79 From: Ej Almanzar MD PCP: Dr. Sylvia Lizama MD Status: REG E R Study:Brain/Head without Contrast Date of Exa m: 11/26/24 Exam# [id number] Ordering Dr: Mingo Bahena DO EXAM: BRAIN/HEAD WITHOUT CONTRAST CLINICAL HISTORY: Weakness. History of fall. The patient is on anticoagulants. COMPARISON: Comparison is made with prior study dated July 04, 2024. TECHNIQUE: Multiple axial tomographic images were obtained without intravenous contrast administration. Coronal and sagittal reconstruction was obtained as well. FINDINGS: Cerebral atrophy. There is a 9.2 mm hypodensity in the superior left cerebellarpeduncle. Correlation with MRI recommended. Decreased periventricular hypodensities suggestive of chronic small-vessel disease. There is opacification of the ethmoid sinuses bilaterally as well as the left sphenoid sinus. CT/Brain/Head without Contrast IMPRESSION: Cerebral atrophy. There is a 9.2 mm hypodensity in the left superior left cerebellar peduncle. Correlation with MRI recommended. Opacification of the ethmoid sinuses bilaterally as well as the left sphenoid sinus. Reading Location: [facility] CC: Dr. Tanisha Bahena DO; Dr. Sylvia Lizama MD ~ Software Engineer Backend: Signed [facility]03-07-2025 Telephone encounter Note* Telephone Encounter - Rossana Escalona LPN - 11/26/2024 2:47 PM EST Spoke with daughter and patient. CT results given. Dr Quintero would like to see her a couple weeks after discharge when she if feeling better. Agreeable to plan. Will let us know when she is able to come in for visit, will call and set up apt. (ER today for bronchitis and fall at home) Rossana Escalona LPN [facility]03-07[facility] Discharge summary Author Tanisha Bahena [facility] Note Date/Time November 26, 2024 5:04 pm [facility] Medical Records Department [address] [place] [id number] Emergency Department Summary 11/26/24 MR#: [id number] Acct: [id number] Name: LISA UP Rep #:[id number] : 1945 79 From: Tanisha Reynolds PCP: Dr. Sylvia Lizama MD Status:ADM I NO Location: [place] [address] HPI History of Present Illness Chief Complaint: Fall Informant: patient and family Narrative Narrative: Patient is 79-year-old female with history of sleep apnea, restless leg, neuropathy, GERD, CHRISTIANA, hypertension and weakness presenting with continued cough, fevers and respiratory illness. Patient states she had a fever last night of 101 with associated chills. She was sweating taken off her close because she was sweating so much when she fell. She is not sure if she passed out but she landed on the ground. She does not think she hit her head. States she was too weak to get up and was on the floor all night. She does live home alone. She notes she has been having some ongoing nausea and intermittent diarrhea. Denies any vomiting. States for the past few weeks she is also been having dizziness lightheadedness. She was diagnosed with COVID at some point inthe past few weeks. She thinks it was about 2 weeks ago. She notes she is continue to have a cough has been productive of phlegm which she describes as cream-colored. Denies any chest pain currently but has been having some chest pain with all of this. Did hit her right knee when she fell and complain of pain there. Has a history of prior knee replacement. No other complaints or concerns reported at this time. Patient is on any blood thinners. [facility] Medical History DVT (deep venous thrombosis) Post-menopausal Dyspnea History of stress test Ovarian tumor Anticoagulant long-term use Non Hodgkin's lymphoma Dehiscence of surgical wound GERD (gastroesophageal reflux disease) Restless leg syndrome Peripheral neuropathy Osteoarthritis Hypertension Morbid obesity with BMI of 40.0-44.9, adult Home Medications ?Medication ?Instructions ?Recorded ?Last Taken ?Type potassium chloride 10 mEq 10 meq PO BID supplement 11/25/24 History tablet,extended release(part/cryst) multivitamin with folic acid 400 1 tab PO DAILY vitami n 08/01/18 11/25/24 History mcg tablet (Thera) apixaban 5 mg tablet 5 mg PO BID blood thinner 11/25/24 History levothyroxine 75 mcg tablet 75 mcg PO DAILY thyroid 11/25/24 History carvedilol 25 mg tablet 25 mg PO BID blood pressure 03/24/24 11/25/24 History gabapentin 400 mg capsule 400 mg PO TID nerve pain 12/1311/25/24 History hydralazine 50 mg tablet 50 mg PO BID blood pressure 03/24/24 11/25/24 History paroxetine HCl 10 mg tablet 10 mg PO DAILY mental heal th 03/24/24 11/25/24 History clonidine HCl 0.1 mg tablet 0.1 mg PO BID 30 days #60 tabs 03/26/24 11/25/24 Rx losartan 100 mg tablet 100 mg PO DAILY 07/04/2403/16 History meclizine 25 mg tablet 25 mg PO TID 07/04/24 Unknow n History omeprazole 20 mg capsule,delayed 20 mg PO DAILY PRN ac id reflux 07/04/24 11/25/24 History release albuterol sulfate 90 mcg/actuation 2 puff inhalation Q 4H PRN Wheezing 11/26/24 11/25/24 History aerosol inhaler (Ventolin HFA) Allergy/AdvReac Type Severity Reaction Status Date / Time COVID-19 vaccine, mRNA, Allergy Anaphylaxis Verified 11/26/24 11:17 [id number], erythromycin base Allergy Rash Verified 11/26/24 11:17 (Erythromycin Base) lisinopril Allergy Swelling Verified 11/26/24 11:17 venom-wasp (wasp) Allergy NEEDS Verified 11/26/24 11:17 FOLLOW-UP amlodipine AdvReac Swelling Verified 11/26/24 11:17 latex AdvReac Swelling Verified 11/26/24 11:17 Family History Mother Hypertension Surgical History S/P laparoscopic cholecystectomy S/P hysterectomy H/O laminectomy History of partial nephrectomy History of tonsillectomy History of total knee arthroplasty History of total abdominal hysterectomy Social History Smoking Status: Never smoker ROS ROS ED Constitutional Constitutional ED: Reports chills, fever(s) and sweats Eyes Eyes: Denies blurry vision or change in vision ENT ENT ED: Denies sore throat Cardiovascular Cardiovascular: Reports chest pain; Denies palpitations Respiratory/Chest Respiratory/Chest: Reports cough, dyspnea and sputum Gastrointestinal Gastrointestinal: Reports diarrhea and nausea; Denies abdominal pain or vomiting Musculoskeletal Musculoskeletal: Reports arthralgias and myalgias Integumentary Denies rash Neurologic Neurologic: Reports headache(s) and weakness; Denies paresthesias Hematologic/Lymphatic Hematologic/Lymphatic: Denies easy bleeding or easy bruising EXAM Physical Exam Const Vital Signs: 11/26/24 11:13 11/26/24 11:17 11/26/24 11:22 Temperature 98.7 F 98.2 F Temperature Source Oral Oral Pulse Rate 76 67 Respiratory Rate 16 16 Respiratory Effort Normal Respiratory Depth Normal Respiratory Pattern Normal Blood Pressure 191/90 H 191/90 H Blood Pressure Mean 123 123 Pulse Ox 95 95 95 Oxygen Delivery Method Room Air Room Air Room Air 11/26/24 13:06 11/26/24 15:00 11/26/24 15:20 Temperature 99 F Temperature Source Pulse Rate 68 70 71 Respiratory Rate 16 13 20 H Respiratory Effort Respiratory Depth Respiratory Pattern Blood Pressure 169/70 H 150/78 H 166/68 H Blood Pressure Mean 103 100 100 Pulse Ox 95 95 95 Oxygen Delivery Method Positive well nourished, well developed and obese General Appearance ED: well developed and NAD Nutritional Appearance: obese HEENT HEENT Narrative: Mildly dry mucosal membranes. Normal tympanic membranes bilaterally. Normal external ears. Head atraumatic. Eyes PERRL and EOMs intact bilaterally Neck supple and no JVD Chest Wall inspection of chest normal and palpation of chest normal Resp normal respiratory effort Resp Narrative: Intermittent harsh cough. Mildly bronchial breath sounds present Auscultation: Negative for rhonchi or wheezes Cardio regular rate and regular rhythm GI normal to inspection, nondistended, normoactive bowel sounds, non-tender and non-distended Back/Spine no CVA tenderness Thoracic Spine / Upper Back: Negative for thoracic spinal tenderness or paraspinal muscle tenderness Lumbar Spine / Lower Back: Negative for lumbar spinal tenderness Extremity normal to inspection Extremity Narrative: Localized erythema with mild tenderness with range of motion to the right knee. No pain with range of motion of the bilateral hips. Neuro oriented x3, CN's II-XII intact bilaterally and no sensory deficits noted Neuro Narrative: NIH equals 0 Sensorium / Orientation: alert Motor Exam: strength 5/5 throughout and general weakness Psych mental status grossly normal Skin Skin Narrative: Developing ecchymosis/swelling erythema over the anterior aspect of the right knee. MDM MDM MDM Narrative Medical decision making narrative: Patient evaluated for mid fevers, weakness and fall. Not able to get off the ground. Lives home alone. Differential includes sepsis, stroke, intracranial hemorrhage, rhabdomyolysis, symptomatic anemia, bacteremia, long COVID and urinary tract infection as well as pneumonia. Workup obtained including CT of the brain, chest x-ray, right knee x-ray (she struck her knee when she fell) as well as lab work and blood cultures. COVID test is still positive but she does not test positive for any new pathogens including influenza or RSV. CBC shows chronic appearing anemia with ahemoglobin 11.7 but this appears to be stable. She is 11.9 three weeks ago. Noleukocytosis. No left shift. CMP largely normal. Lactate normal. High sensitive troponin pending but EKG does not show any acute ischemic changes. CPK added on because she was on the floor overnight but still pending. Urinalysis not consistent with infection. Chest x- ray viewed by myself as well as radiology does not show any acute process. X-ray of the knee does not show any acute abnormality with status post prior arthroplasty. CT of the brain does show 9.2 mm hypodensity of the left superior left cerebellar peduncle. Recommends MRI for further evaluation. Neurologic evaluation does not show any focal deficits. Case is discussed with hospitalist for admission given her weakness and debility. Recurrent fevers could be secondary to continued COVID symptoms however cultures are pending. Lower suspicion for bacteremia given her normal white blood cell count and normal lactate. Chest x-rays not show any pneumonia I do not think she requires antibiotics at this time. Spoke with hospitalist who does request that I speak with [facility] neurology given the size of the hypodensity on the CT of her brain in case she would require further transfer/other workup and an MRI. Spoke with Dr. Goss who recommends MRI but no further recommendations at this time. Suspect she might have had a stroke given her weakness and fall. Patient is admitted to hospitalist service. Patient and family agreeable this plan of care. Lab Data Attestation: I reviewed the patient's lab results. Labs: Laboratory Results - last 24 hr 11/26/24 14:05 WBC 5.1 RBC 3.83 L Hgb 11.7 L Hct 36.2 L MCV 94.5 MCH 30.5 MCHC 32.3 RDW Std Deviation 43.9 RDW Coeff of [place] 12.8 Plt Count 142 L MPV 10.2 Immature Gran % (Auto) 0.400 Neut % (Auto) 71.0 H Lymph % (Auto) 15.0 L [place] % (Auto) 12.2 H Eos % (Auto) 1.2 Baso % (Auto) 0.2 Absolute Neuts (auto) 3.6 Absolute Lymphs (auto) 0.76 L Nucleated RBC % 0 Sodium 138 Potassium 4.1 Chloride 101 Carbon Dioxide 25.6 Anion Gap 11 BUN 11 Creatinine 0.72 Estim Creat Clear Calc 64.55 Est GFR (MDRD) Non-Af 83 BUN/Creatinine Ratio 15.1 Glucose 108 H Lactic Acid < 1.0 Calcium 9.4 Total Bilirubin 0.49 AST 27 ALT < 5 Alkaline Phosphatase 66 Total Protein 6.1 Albumin 3.7 Globulin 2.4 Albumin/Globulin Ratio 1.5 Urine Color Yellow Urine Clarity Clear Urine pH 7.0 Ur Specific [place] 1.010 Urine Protein 15 H Urine Glucose (UA) Normal Urine Ketones Negative Urine Occult Blood 10 H Urine Nitrite Negative Urine Bilirubin Negative Urine Urobilinogen 1 H Ur Leukocyte Esterase Negative Urine RBC 0-5 SEEN Urine WBC 0-5 SEEN Ur Squamous Epith Cells 0-5 SEEN Urine Bacteria 0 SEEN Urine Mucus 0 SEEN Radiography Diagnostic Testing: Clinical Impression(s) from Imaging Studies Brain CT 11/26/24 13:27 IMPRESSION: Cerebral atrophy. There is a 9.2 mm hypodensity in the left superior left cerebellar peduncle. Correlation with MRI recommended. Opacification of the ethmoid sinuses bilaterally as well as the left sphenoid sinus. Reading Location: [facility] Chest X-Ray 11/26/24 14:35 IMPRESSION: No acute abnormality is seen. Reading Location: [id number] Knee X-Ray 11/26/24 15:38 IMPRESSION: Status post total knee replacement. No acute abnormality is seen. Reading Location: [id number] Rhythm Strip Rhythm Strip: Sinus Rhythm Rate: 68 Ectopy: None EKG Initial EKG: Attestation: I personally reviewed and interpreted this EKG as follows: Interpretation: Sinus Rhythm Comments: Normal sinus rhythm at a rate of 68 bpm Normal axis Normal intervals Normal ST segments Prior EKG tracings: available for review Prior: Unchanged Management Discussion w/another healthcare provider: Hospitalist and Door Paneler Discharge Plan Triage Chief Complaint: Fall ED Provider: Tanisha Bahena Dx/Rx/DC Orders Clinical Impression: Fall, Debility, Abnormal brain CT Primary Care Provider: Sylvia Lizama Disposition Disposition: Acute Care Hospital [facility] What to do if you have Problems For any increased pain, shortness of breath, bleeding, nausea or vomiting, chestpain, or any unexpected problems, contact your Primary Care Provider. Call [facility] ([phone]) or report to the closest Emergency Room. Call 911 if necessary. 11/26/24 1704 <Electronically signed by Tanisha Bahena DO> Cosigner Signature (if applicable): CC: Dr. Sylvia Lizama MD ~ Signed [facility] Work Phone: 1(579) 704-786203-07-2025 Radiology Diagnostic study note [facility] Imaging Services [address] [place], [place] [address] Chest PA and Lateral MR#: [id number] Acct: [id number] Name: LISA UP Rep #: [id number] : 1945 F 79 From: Ej Almanzar MD PCP: Dr. Sylvia Lizama MD Status: REG E R Study:Chest PA and Lateral Date of Exam: 11/26/24 Exam# [id number] Ordering Dr: Mingo Bahena DO PROCEDURE: CHEST PA AND LATERAL REASON FOR EXAM: Weakness, cough and chills. TECHNIQUE: Frontal and lateral views of the chest. COMPARISON: Comparison is made with prior study dated November 06, 2024. FINDINGS: EKG electrodes are seen. The heart is not enlarged. The lungs are clear. RAD/Chest PA and Lateral IMPRESSION: No acute abnormality is seen. Reading Location: [id number] CC: Dr. Tanisha Bahena DO; Dr. Sylvia Lizama MD ~ Software Engineer Backend: Signed [facility]03-07-2025 Radiology Diagnostic study note [facility] Imaging Services [address] [place] [address] Brain/Head without Contrast MR#: [id number] Acct: [id number] Name: LISA UP Rep #: [id number] : 1945 F 79 From: Ej Almanzar MD PCP: Dr. Sylvia Lizama MD Status: REG E R Study:Brain/Head without Contrast Date of Exa m: 11/26/24 Exam# [id number] Ordering Dr: Mingo Bahena DO EXAM: BRAIN/HEAD WITHOUT CONTRAST CLINICAL HISTORY: Weakness. History of fall. The patient is on anticoagulants. COMPARISON: Comparison is made with prior study dated July 04, 2024. TECHNIQUE: Multiple axial tomographic images were obtained without intravenous contrast administration. Coronal and sagittal reconstruction was obtained as well. FINDINGS: Cerebral atrophy. There is a 9.2 mm hypodensity in the superior left cerebellarpeduncle. Correlation with MRI recommended. Decreased periventricular hypodensities suggestive of chronic small-vessel disease. There is opacification of the ethmoid sinuses bilaterally as well as the left sphenoid sinus. CT/Brain/Head without Contrast IMPRESSION: Cerebral atrophy. There is a 9.2 mm hypodensity in the left superior left cerebellar peduncle. Correlation with MRI recommended. Opacification of the ethmoid sinuses bilaterally as well as the left sphenoid sinus. Reading Location: [facility] CC: Dr. Tanisha Bahena DO; Dr. 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 Set up office visit several weeks down the road when she is feeling better. César Quintero DO [facility]03-07-2025 Telephone encounter Note* Telephone Encounter - María Elena Louis - 11/26/2024 8:39 AM EST Sabrina called to cancel office visit with Dr. Quintero today. Patient is on her way to ED. Sabrina states patient has been sick for several weeks. She has fever, weakness. Sabrina is asking if possible to have a phone call instead of office visit when patient is discharged (if admitted) [facility] Work Phone: 1(127) 923-860902-24-2025 Telephone encounter Note* Telephone Encounter - Sabrina Cavanaugh MA - 11/15/2024 8:01 AM EST Patient was made aware of the results. She was made of provider recommendations. Patient verbalizesunderstanding. Sabrina Cavanaugh Ma [facility]02-24-2025 Telephone encounter Note* Telephone Encounter - Sabrina Cavanaugh MA - 11/15/2024 8:01 AM EST ----- Message from Judith Pickard sent at 11/15/2024 7:53 AM EST ----- Please let patient know that she is positive for COVID. Take all the recommended precautions, rest,fluids, if she becomes short of breath, please go to the emergency room. This has been going on toolong for us to treat with Paxlovid. [facility]02-24-2025 Miscellaneous Notes* Telephone Encounter - Sabrina Cavanaugh MA - 11/15/2024 8:01 AM EST Patient was made aware of the results. She was made of provider recommendations. Patient verbalizesunderstanding. Sabrina Cavanaugh Ma * Telephone Encounter - Sabrina Cavanaugh MA - 11/15/2024 8:01 AM EST ----- Message from Judith Pickard sent at 11/15/2024 7:53 AM EST ----- Please let patient know that she is positive for COVID. Take all the recommended precautions, rest,fluids, if she becomes short of breath, please go to the emergency room. This has been going on toolong for us to treat with Paxlovid. * Result Encounter Note - Judith Pickard APRN.CNP - 11/15/2024 7:53 AM EST Please let patient know that she is positive for COVID. Take all the recommended precautions, rest,fluids, if she becomes short of breath, please go to the emergency room. This has been going on toolong for us to treat with Paxlovid. documented in this encounterAcm[facility] System02-24-2025 Progress note* Result Encounter Note - Judith Pickard APRN.CNP - 11/15/2024 7:53 AM EST Please let patient know that she is positive for COVID. Take all the recommended precautions, rest,fluids, if she becomes short of breath, please go to the emergency room. This has been going on toolong for us to treat with Paxlovid. [facility]02-21-2025 Instructions* Patient Instructions* Judith Pickard APRN.CNP - 11/12/2024 3:59 PM EST 1) Keep appt. November 2) Swab for flu/Covid/and RSV documented in this encounterAcmc [facility] System02-21-2025 History of Present illness Narrative* Judith Pickard APRN.CNP - 11/12/2024 3:39 PM EST This is a 79 year old female who presents today with: No chief complaint on file. HISTORY OF PRESENT ILLNESS: Lisa Up is a 79 year old female. No chief complaint on file. Sick for 4 weeks. Sleeps all the time + headache No sore throat + head congestion Ear pressure + chest congestion + a lot of phlegm + body aches Diarrhea is better Treated initially for UTI with Macrobid Then Dx at ER with bronchitis and sinusitis and Tx with Augmentin PAST MEDICAL HISTORY: PAST MEDICAL HISTORY Diagnosis Date ANXIETY STATE NOS 06/07/2005 Arthritis Cancer (HCC) Carpal tunnel syndrome 06/07/2005 Cholelithiasis 06/17/2012 DEPRESSIVE DISORDER NEC 06/07/2005 Diverticulosis of colon (without mention of hemorrhage) Dizziness and giddiness 02/26/2010 GENERAL OSTEOARTHROSIS 06/07/2005 Goiter, unspecified 12/11/2010 Headache(784.0) 02/26/2010 Chronic. 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 Ramírez, severe PAST SURGICAL HISTORY Procedure Laterality Date ABDOMINAL SURGERY HX ARTHRP KNE CONDYLE&PLATU MEDIAL&LAT COMPARTMENTS February2010 Knee replacement, total, Left ARTHRP KNE CONDYLE&PLATU MEDIAL&LAT COMPARTMENTS 07/2010 Knee replacement, total, Right BACK SURGERY HX COLONOSCOPY FLX DX W/COLLJ SPEC WHEN PFRMD 06/05/2011 Colonoscopy COLONOSCOPY FLX DX W/COLLJ SPEC WHEN PFRMD N/A 12/04/2016 ESOPHAGOGASTRODUODENOSCOPY TRANSORAL DIAGNOSTIC N/A 12/04/2016 DEVORA FILTER 2018 INSJ TUNNELED CTR VAD W/SUBQ PORT AGE 5 YR/> 06/05/2022 JOINT REPLACEMENT HX L'SCOPE CHOLECYSTECTOMY 07/30/2022 Dr Gonzalez NEPHRECTOMY PARTIAL 1986 Nephrectomy, partial left (benign) PAST SURGICAL HISTORY OF 06/2018 lumbar burger with wound infection TONSILLECTOMY HX TOTAL ABDOMINAL HYSTERECT W/WO RMVL TUBE OVARY 1985 Hysterectomy, NEISHA VAGINAL HYSTERECTOMY ALLERGIES Covid-19 Vaccine, Mrna, [id number], Lnp-S (Moderna); Adhesive; Erythromycin; Latex; Lisinopril; Nafcillin; Nifedipine; Norvasc [Amlodipine Besylate]; and Wasps MEDICATIONS Current Outpatient Medications Medication Sig albuterol HFA (PROVENTIL HFA, VENTOLIN HFA) 90 mcg/actuation inhaler Inhale 2 Puffs as instructed every 4 hours as needed. amoxicillin-clavulanate potassium (AUGMENTIN) 875-125 mg per tablet Take 1 tablet by mouth every 12hours. acetaminophen 650 mg CR tablet Take 650 mg by mouth every 8 hours as needed. hydrALAZINE (APRESOLINE) 50 mg tablet Take 1 tablet by mouth two times a day. hydrALAZINE (APRESOLINE) 50 mg tablet Take 1 tablet by mouth two times a day. iv contrast (will be provided with radiology test) CT Chest W -Inject, intravenously, once for 1 dose.No IV access, insert saline lock prior to the beginning of sedation, infusion, injection of imaging exam. Discontinue saline lock post exam. If Pt. has a central line or IVAD, may access for administration according to line specific nursing protocol. Once exam is complete flush line and de-accessaccording to line specific nursing protocol in the CT contrast administration guidelines link. iv contrast (will be provided with radiology test) CT ABD/PEL -Inject, intravenously, once for 1 dose.No IV access, insert saline lock prior to the beginning of sedation, infusion, injection of imaging exam. Discontinue saline lock post exam. If Pt. has a central line or IVAD, may access for administration according to line specific nursing protocol. Once exam is complete flush line and de-accessaccording to line specific nursing protocol in the CT contrast administration guidelines link. enteric contrast (will be provided with radiology test) For CT ABD/PEL W IVCON Routine order Administer, As Directed One Time Only, via Oral, Rectal, both Oral and Rectal, Enteric Tube, Stoma or Indwelling Catheter, Enteric Contrast as designated per enteric contrast guidelines atogepant (QULIPTA) 60 mg tablet Take 1 tablet (60 mg) by mouth once daily. rimegepant (NURTEC ODT) 75 mg disintegrating tablet Take 1 tablet by mouth once daily as needed. phenazopyridine (PYRIDIUM) 200 mg tablet Take 1 tablet by mouth three times a day as needed. losartan (COZAAR) 100 mg tablet Take 1 tablet by mouth once daily. apixaban (ELIQUIS) 5 mg tab(s) Take 1 tablet by mouth two times a day. gabapentin (NEURONTIN) 400 mg capsule Take 1 capsule by mouth two times a day for 180 days. levothyroxine (SYNTHROID) 75 mcg tablet Take 1 tablet by mouth daily before breakfast. EPINEPHrine (EPIPEN) 0.3 mg/0.3 mL auto-injector Use as directed potassium chloride (K-TAB) 10 mEq tablet Take 1 tablet by mouth two times a day. carvedilol (COREG) 25 mg tablet Take 1 tablet by mouth two times a day. omeprazole (PRILOSEC) 20 mg capsule Take 1 capsule by mouth once daily. PARoxetine (PAXIL) 10 mg tablet Take 1 tablet by mouth once daily. OTC PRODUCT Super Snooze with Melatonin: Take one capsule by mouth at bedtime as needed. multivitamin/iron/folic acid (CENTRUM ULTRA WOMEN'S ORAL) Take 1 tablet by mouth once daily. No current facility-administered medications for this visit. FAMILY HISTORY Problem Relation Age of Onset Heart Mother Cancer Mother lung Heart Father other (Other) Father Heart Brother [place], aneurysm Migraines Daughter Macular Degen Maternal Aunt Social History Tobacco Use Smoking status: Never Smokeless tobacco: Never Vaping Use Vaping status: Never Used Substance Use Topics Alcohol use: No Drug use: No EXAM: BP 146/90 Pulse 71 Temp (!) 38.3 C (100.9 F) (Right Tympanic) Wt 108.9 kg (240 lb) SpO2 99% BMI 43.06 kg/m PHYSICAL EXAM: Physical Exam Vitals reviewed. Constitutional: Appearance: Normal appearance. HENT: Head: Normocephalic. Right Ear: Tympanic membrane, ear canal and external ear normal. There is no impacted cerumen. Left Ear: Tympanic membrane, ear canal and external ear normal. There is no impacted cerumen. Nose: No congestion or rhinorrhea. Mouth/Throat: Pharynx: No oropharyngeal exudate or posterior oropharyngeal erythema. Cardiovascular: Rate and Rhythm: Normal rate and regular rhythm. Pulses: Normal pulses. Heart sounds: Normal heart sounds. Pulmonary: Effort: Pulmonary effort is normal. Breath sounds: Normal breath sounds. Abdominal: General: Bowel sounds are normal. Palpations: Abdomen is soft. Tenderness: There is no abdominal tenderness. There is no guarding or rebound. Musculoskeletal: General: Normal range of motion. Right lower leg: No edema. Left lower leg: No edema. Comments: Generalized weakness, walks w/o assistive device Skin: General: Skin is warm and dry. Neurological: Mental Status: She is alert and oriented to person, place, and time. LABS: ASSESSMENT/PLAN: 1. Essential hypertension - ICD9: 401.9, ICD10: I10 (primary diagnosis) - Uncontrolled but acutely ill - Recommend home blood pressure monitoring, to bring results to next visit - Encouraged sodium restriction, DASH or Mediterranean diet - Recommend regular aerobic exercise - HYDRALAZINE 50 MG TABLET - CARVEDILOL 25 MG TABLET 2. Migraine without aura and without status migrainosus, not intractable - ICD9: 346.10, ICD10: G43.009 Stable 3. Hypothyroidism due to acquired atrophy of thyroid - ICD9: 244.8, 246.8, ICD10: E03.4 - Instructed patient on importance of taking on an empty stomach either first thing in the morning or at bedtime. On levothyroxine - check Tsh with next labs 4. Anxiety with depression - ICD9: 300.4, ICD10: F41.8 Stable 5. GERD without esophagitis - ICD9: 530.81, ICD10: K21.9 - Stable 6. Viral URI - ICD9: 465.9, ICD10: J06.9 - Discussed viral etiology and rationale for treatment. - Symptomatic treatment with prn analgesia - Supportive care with fluids and rest - Swab for flu/Covid/and RSV Discussed treatment plan and patient voices understanding. Patient's questions answered appropriately. Medications and potential side effects were discussed and patient voices understanding. Return to the office as scheduled or as needed for worsening/no improvement. Judith Pickard APRN.LEONCIO documented in this encounterAcmc Healthcare System02-21-2025 History of Present illness Narrative* Jacky VenturaDannielle, RT(R) - 11/12/2024 2:20 PM EST Radiology Service Progress Note DATE OF SERVICE: November 12, 2024 TIME: 4:09 PM PATIENT IDENTITY VERIFICATION COMPLETED USING TWO (2) STANDARD IDENTIFIERS: Name and Date of confirmed by patient verbally. FALL SCREENING: Has the patient had 2 falls in the last year or 1 fall with injury or currently using an Ambulatory Assistive Device (Walker, Cane, Wheelchair, Crutches, etc.)? No PATIENT GENDER DATA: Assigned female at . status: : No status:NO. PATIENT RELEVANT IMPLANT DATA REVIEWED: Yes PATIENT PRESENTS WITH AN IMPLANTABLE OR ATTACHED COLLECTIVE BARGAINING SPECIALIST: No ALLERGIES: Reviewed and unchanged CONTRAST ALLERGY: NO. EXAM: CT -CONTRAST INDUCED NEPHROPATHY RISK FACTORS: Patient age > 60 years CREATININE: Creatinine Date Value Ref Range Status 11/12/2024 0.73 0.58 - 0.96 mg/dL Final 09/17/2024 0.86 0.58 - 0.96 mg/dL Final 08/27/2024 0.95 0.58 - 0.96 mg/dL Final Estimated Glomerular Filtration Rate Date Value Ref Range Status 11/12/2024 83 >=60 mL/min/1.73m Final Comment: Estimated Glomerular Filtration Rate (eGFR) is calculated using the 2020 CKD-EPI creatinine equation. This equation utilizes serum creatinine, sex, and age as parameters. The creatinine assay has traceable calibration to isotope dilution- mass spectrometry. Refer to KDIGO guidelines for clinical interpretation. In patients with unstable renal function, e.g. those with acute kidney injury, the eGFRmay not accurately reflect actual GFR. eGFR- Date Value Ref Range Status 10/18/2021 >60 Final P.O.C.T. RESULTS: POC done: Yes, See Lab Tab November 12, 2024 TREATMENT: N/A PERIPHERAL IV DATA: Ambulatory: A peripheral IV was started in the Left antecubital site with a Angio cath: 22 gauge. RADIOLOGY DEPARTMENT: CT; Exam(s) Completed: Chest Abdomen Pelvis SIGNATURE: RT Blanca(R) PATIENT NAME: Lisa Up DATE: November 12, 2024 TIME: 4:09 PM documented in this encounterAcmc Healthcare System02-19-2025 Telephone encounter Note * Telephone Encounter - Missy Peralta LPN - 11/10/2024 12:27 PM EST Patient notified to keep lab/CT appointments. Missy Peralta LPN [facility]02-19-[facility]25 Miscellaneous Notes* Telephone Encounter - Missy Peralta LPN - 11/10/2024 12:27 PM EST Patient notified to keep lab/CT appointments. Missy Peralta LPN * Telephone Encounter - César Quintero DO - 11/10/2024 10:50 AM EST Yes. César Quintero DO * Telephone Encounter - Missy Peralta LPN - 11/10/2024 10:11 AM EST Patient has been sick for 3-4 weeks; SOB, productive cough, congestion. Denies chest pain or fever. Patient was seen at [facility] 11/01 and then went to [facility] 11/06/2024- diagnosed with sinusitisand bronchitis. Currently taking Augmentin. Continues with productive cough and SOB. Patient is asking if she should keep labs/CT on 11/12/2024 or reschedule? Missy Peralta LPN * Telephone Encounter - María Elena Louis - 11/10/2024 10:02 AM EST Patient called stating she has a cough/sinusitis and is asking if she should keep 2/21 appointmentswith lab/CT. She is asking if she coughs during CT, would it interfere with results. Please advise. documented in this encounterAcmc Healthcare System02-19-2025 Telephone encounter Note * Telephone Encounter - César Quintero DO - 11/10/2024 10:50 AM EST Yes. César Quintero DO [facility]02-19-[facility]25 Telephone encounter Note* Telephone Encounter - Missy Peralta LPN - 11/10/2024 10:11 AM EST Patient has been sick for 3-4 weeks; SOB, productive cough, congestion. Denies chest pain or fever. Patient was seen at [facility] 11/01 and then went to [facility] ER 11/06/2024- diagnosed with sinusitisand bronchitis. Currently taking Augmentin. Continues with productive cough and SOB. Patient is asking if she should keep labs/CT on 11/12/2024 or reschedule? Missy Peralta LPN [facility]02-19-[facility]25 Telephone encounter Note* Telephone Encounter - María Elena Louis - 11/10/2024 10:02 AM EST Patient called stating she has a cough/sinusitis and is asking if she should keep 2/21 appointmentswith lab/CT. She is asking if she coughs during CT, would it interfere with results. Please advise. [facility] Work Phone: 1([phone]) 507-441402-18-2025 Telephone encounter Note* Telephone Encounter - Yarely Lee RN - 11/09/2024 2:38 PM EST Daughter (Shauna) calls to request refill of hydralazine. Patient is completely out of medication and currently ill with bronchitis. Shauna reports that Dr. Lizama has ordered medication in the past and asking if he would please order again as patient is without. Last prescription was ordered by Dr. Quintero but PCP has prescribed previously. Shauna requests call back at [phone]. Yarely Lee RN [facility]02-18-2025 Miscellaneous Notes* Telephone Encounter - Yarely Lee RN - 11/09/2024 2:38 PM EST Daughter (Shauna) calls to request refill of hydralazine. Patient is completely out of medication and currently ill with bronchitis. Shauna reports that Dr. Lizama has ordered medication in the past and asking if he would please order again as patient is without. Last prescription was ordered by Dr. Quintero but PCP has prescribed previously. Shauna requests call back at [phone]. Yarely Lee RN * Telephone Encounter - María Elena Louis - 11/09/2024 9:39 AM EST Daughter called stating that Dr. Lizama's office informed her that Dr. Quintero refills. Patient is out and needs short order sent to [facility], 90 days can be sent to mail in. * Telephone Encounter - Tima Benavides RN - 11/08/2024 10:05 AM EST Pt states she doesn't know how the dose was decreased to 25 mg. Pt states she takes 50 mg BID. I couldn't see anywhere that it was decreased to 25 mg. Please resend and Pt will need short term dose sent to [facility]. The patient has been identified by name and date of : Yes Caregiver verified no other encounters exist for this prescription request: Yes Caregiver confirmed with patient/requestor that no other refills are due, in the near future, with this provider at this time: Yes The last office visit in the department: 09/03/24 Does the patient have a future office visit with this provider/department: Yes 11/19/2024 Requested Prescriptions Pending Prescriptions Disp Refills hydrALAZINE (APRESOLINE) 50 mg tablet 180 tablet 1 Sig: Take 1 tablet by mouth two times a day. hydrALAZINE (APRESOLINE) 50 mg tablet 14 tablet 0 Sig: Take 1 tablet by mouth two times a day. Tima Benavides RN November 08, 2024 10:10 AM documented in this encounterAcmc Healthcare System02-18-2025 Telephone encounter Note * Telephone Encounter - María Elena Louis - 11/09/2024 9:39 AM EST Daughter called stating that Dr. Lizama's office informed her that Dr. Quintero refills. Patient is out and needs short order sent to [facility], 90 days can be sent to mail in. [facility] Work Phone: 1(322) 773-120702-17-2025 Telephone encounter Note* Telephone Encounter - Tima Benavides RN - 11/08/2024 10:05 AM EST Pt states she doesn't know how the dose was decreased to 25 mg. Pt states she takes 50 mg BID. I couldn't see anywhere that it was decreased to 25 mg. Please resend and Pt will need short term dose sent to [facility]. The patient has been identified by name and date of : Yes Caregiver verified no other encounters exist for this prescription request: Yes Caregiver confirmed with patient/requestor that no other refills are due, in the near future, with this provider at this time: Yes The last office visit in the department: 09/03/24 Does the patient have a future office visit with this provider/department: Yes 11/19/2024 Requested Prescriptions Pending Prescriptions Disp Refills hydrALAZINE (APRESOLINE) 50 mg tablet 180 tablet 1 Sig: Take 1 tablet by mouth two times a day. hydrALAZINE (APRESOLINE) 50 mg tablet 14 tablet 0 Sig: Take 1 tablet by mouth two times a day. Tima Benavides RN November 08, 2024 10:10 AM [facility]-12-[facility] Telephone encounter Note* Telephone Encounter - Felicia West LPN - 11/03/2024 6:32 PM EST Patient notified.Felicia West LPN [facility]02-12-2025 Miscellaneous Notes* Telephone Encounter - Felicia West LPN - 11/03/2024 6:32 PM EST Patient notified.Felicia West LPN * Telephone Encounter - Elida Lozada APRN.CNP - 11/02/2024 5:20 PM EST Urine culture reveals mixed bacterial growth. Patient can complete ATB if she desires and symptoms are improving. She will need to follow up with PCP to have repeat urine specimen Please advise documented in this encounterAcmc Healthcare System02-11-2025 Telephone encounter Note * Telephone Encounter - Elida Lozada APRN.CNP - 11/02/2024 5:20 PM EST Urine culture reveals mixed bacterial growth. Patient can complete ATB if she desires and symptoms are improving. She will need to follow up with PCP to have repeat urine specimen Please advise [facility] Work Phone: 1(947) 230-514102-10-2025 Instructions* Patient Instructions* Elida Lozada APRN.CNP - 11/01/2024 12:57 PM EST Images from the original note were not included. Urinary Problem-When to Seek Help? Symptoms of a urinary problem may lead to a bladder infection. Women are at greater risk of a urinary tract infection than are men. Most urinary tract infections in women are caused by bacteria and involve the lower urinary tract including the bladder and urethra. Symptoms: Pain or burning when passing urine, urgency, frequency, blood in the urine, difficult emptying your bladder, and lower abdominal fullness or pressure. Common Causes: Sexual intercourse, menopause, constipation, uncontrolled diabetes, dehydration and feminine products such as tampons, and kidney stones. When to Get Help: Seek medical attention if you get frequent bladder infections, urinary concerns such as leakage, blood in the urine or frequent need to urinate. You may be recommended to get help from a specialist, such as a urologist. Diagnosis & Treatment: Lab testing may include: urinalysis, and urine culture that can be collected in the lab or walk-in clinic. Most bladder infections can easily be treated. A physician, nurse practitioner or physician unit assistant may treat with a short course of an antibiotic. Delaying treatment can lead to worsening symptoms, like a kidney infection. Self-Care: Avoid a full bladder, bubble baths, bath oils, food and beverages that may irritate the bladder such as caffeine. Avoid spermicide foam and diaphragms Void before and after sexual intercourse Wipe front to back after using the bathroom. Stay hydrated Stop Smoking Follow-up Care: Follow up testing is not needed in healthy young women if symptoms resolve. documented in this encounterAcmc Healthcare System02-10-2025 History of Present illness Narrative* Elba العلي RT(Barbra) - 11/01/2024 12:30 PM EST Radiology Service Progress Note PATIENT NAME: Lisa Up DATE OF SERVICE: November 01, 2024 TIME: 12:25 PM PATIENT IDENTITY VERIFICATION COMPLETED USING TWO (2) IDENTIFIERS: Name and Date of confirmedby patient verbally. FALL SCREENING: Has the patient had 2 falls in the last year or 1 fall with injury or currently using an Ambulatory Assistive Device (Walker, Cane, Wheelchair, Crutches, etc.)? No PATIENT GENDER DATA: Assigned female at . status: : No status:NO. PATIENT RELEVANT IMPLANT DATA REVIEWED: Yes PATIENT PRESENTS WITH AN IMPLANTABLE OR ATTACHED COLLECTIVE BARGAINING SPECIALIST: No RADIOLOGY DEPARTMENT: General X-ray: Exam(s) Completed: Chest X-Ray PERIPHERAL IV DATA: Not applicable SIGNED BY: RT Tluio(R) November 01, 2024 12:25 PM documented in this encounterAcmc Healthcare System02-10-2025 History of Present illness Narrative* Elida Lozada APRN.CRISIS COUNSELOR - 11/01/2024 12:22 PM EST This note was created using NoteWriter. Subjective Lisa Up is a 78 year old female. 78 year old female with PMH migraines, hyperlipidemia, HTN, CHRISTIANA, and B-cell lymphoma presents with multiple complaints Illness/Cough Acute onset 2 weeks ago +cough +productive +chest congestion +ear pain +headache +fatigue +body aches Denies hemoptysis Denies CP Denies dyspnea UTI Acute onset 2 days ago +frequency +burning Increased episodes of incontinence Denies vaginal bleeding Denies vaginal discharge Denies N/V/D Denies using homeopathic or OTC prior to arrival Accompanied by daughter The history is provided by the patient. No english language arts teacher was used. URI She complains of cough and sputum production. There is no chest tightness, difficulty breathing, frequent throat clearing, hemoptysis, hoarse voice, shortness of breath or wheezing. This is a new problem. The current episode started 1 to 4 weeks ago. The problem occurs constantly. The problem has been gradually worsening. The cough is productive of sputum. Associated symptoms include appetite change, a fever, headaches, malaise/fatigue, myalgias, nasal congestion, rhinorrhea and sneezing. Pertinent negatives include no chest pain, dyspnea on exertion, ear congestion, ear pain, heartburn, orthopnea, PND, postnasal drip, sore throat, sweats, trouble swallowing or weight loss. Her symptoms areaggravated by nothing. Her symptoms are alleviated by nothing. She reports no improvement on treatment. There are no known risk factors for lung disease. There is no history of asthma, bronchiectasis, bronchitis, COPD, emphysema or pneumonia. UTI This is a new problem. The current episode started 2 days ago. The problem occurs every urination. The problem has been gradually worsening. The quality of the pain is described as burning. The pain is at a severity of 5/10. The pain is moderate. There has been no fever. She is Not sexually active.Associated symptoms include frequency. Pertinent negatives include no chills, no sweats, no nausea,no vomiting, no discharge, no hematuria, no hesitancy, no possible , no urgency and no flank pain. She has tried nothing for the symptoms. Her past medical history does not include kidney stones, single kidney, urological procedure, recurrent UTIs, urinary stasis or catheterization. PAST MEDICAL HISTORY Diagnosis Date ANXIETY STATE NOS 06/07/2005 Arthritis Cancer (HCC) Carpal tunnel syndrome 06/07/2005 Cholelithiasis 06/17/2012 DEPRESSIVE DISORDER NEC 06/07/2005 Diverticulosis of colon (without mention of hemorrhage) Dizziness and giddiness 02/26/2010 GENERAL OSTEOARTHROSIS 06/07/2005 Goiter, unspecified 12/11/2010 Headache(784.0) 02/26/2010 Chronic. 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 Ramírez, severe PAST SURGICAL HISTORY Procedure Laterality Date ABDOMINAL SURGERY HX ARTHRP KNE CONDYLE&PLATU MEDIAL&LAT COMPARTMENTS February2010 Knee replacement, total, Left ARTHRP KNE CONDYLE&PLATU MEDIAL&LAT COMPARTMENTS 07/2010 Knee replacement, total, Right BACK SURGERY HX COLONOSCOPY FLX DX W/COLLJ SPEC WHEN PFRMD 06/05/2011 Colonoscopy COLONOSCOPY FLX DX W/COLLJ SPEC WHEN PFRMD N/A 12/04/2016 ESOPHAGOGASTRODUODENOSCOPY TRANSORAL DIAGNOSTIC N/A 12/04/2016 DEVORA FILTER 2018 INSJ TUNNELED CTR VAD W/SUBQ PORT AGE 3 YR/> 06/05/2022 JOINT REPLACEMENT HX L'SCOPE CHOLECYSTECTOMY 07/30/2022 Dr Gonzalez NEPHRECTOMY PARTIAL 1986 Nephrectomy, partial left (benign) PAST SURGICAL HISTORY OF 06/2018 lumbar burger with wound infection TONSILLECTOMY HX TOTAL ABDOMINAL HYSTERECT W/WO RMVL TUBE OVARY 1985 Hysterectomy, NEISHA VAGINAL HYSTERECTOMY ALLERGIES Covid-19 Vaccine, Mrna, [id number], Lnp-S (Moderna); Adhesive; Erythromycin; Latex; Lisinopril; Nafcillin; Nifedipine; Norvasc [Amlodipine Besylate]; and Wasps MEDICATIONS hydrALAZINE (APRESOLINE) 25 mg tablet Take 2 tablets by mouth two times a day. iv contrast (will be provided with radiology test) CT Chest W -Inject, intravenously, once for 1 dose.No IV access, insert saline lock prior to the beginning of sedation, infusion, injection of imaging exam. Discontinue saline lock post exam. If Pt. has a central line or IVAD, may access for administration according to line specific nursing protocol. Once exam is complete flush line and de-accessaccording to line specific nursing protocol in the CT contrast administration guidelines link. enteric contrast (will be provided with radiology test) For CT ABD/PEL W IVCON Routine order Administer, As Directed One Time Only, via Oral, Rectal, both Oral and Rectal, Enteric Tube, Stoma or Indwelling Catheter, Enteric Contrast as designated per enteric contrast guidelines atogepant (QULIPTA) 60 mg tablet Take 1 tablet (60 mg) by mouth once daily. rimegepant (NURTEC ODT) 75 mg disintegrating tablet Take 1 tablet by mouth once daily as needed. phenazopyridine (PYRIDIUM) 200 mg tablet Take 1 tablet by mouth three times a day as needed. losartan (COZAAR) 100 mg tablet Take 1 tablet by mouth once daily. apixaban (ELIQUIS) 5 mg tab(s) Take 1 tablet by mouth two times a day. gabapentin (NEURONTIN) 400 mg capsule Take 1 capsule by mouth two times a day for 180 days. levothyroxine (SYNTHROID) 75 mcg tablet Take 1 tablet by mouth daily before breakfast. EPINEPHrine (EPIPEN) 0.3 mg/0.3 mL auto-injector Use as directed potassium chloride (K-TAB) 10 mEq tablet Take 1 tablet by mouth two times a day. carvedilol (COREG) 25 mg tablet Take 1 tablet by mouth two times a day. omeprazole (PRILOSEC) 20 mg capsule Take 1 capsule by mouth once daily. PARoxetine (PAXIL) 10 mg tablet Take 1 tablet by mouth once daily. OTC PRODUCT Super Snooze with Melatonin: Take one capsule by mouth at bedtime as needed. acetaminophen 650 mg CR tablet Take 650 mg by mouth every 8 hours as needed. multivitamin/iron/folic acid (CENTRUM ULTRA WOMEN'S ORAL) Take 1 tablet by mouth once daily. nitrofurantoin monohydrate and macrocrystal (MACROBID) 100 mg capsule Take 1 capsule by mouth two times a day for 5 days. iv contrast (will be provided with radiology test) CT ABD/PEL -Inject, intravenously, once for 1 dose.No IV access, insert saline lock prior to the beginning of sedation, infusion, injection of imaging exam. Discontinue saline lock post exam. If Pt. has a central line or IVAD, may access for administration according to line specific nursing protocol. Once exam is complete flush line and de-accessaccording to line specific nursing protocol in the CT contrast administration guidelines link. FAMILY HISTORY Problem Relation Age of Onset Heart Mother Cancer Mother lung Heart Father other (Other) Father Heart Brother [place], aneurysm Migraines Daughter Macular Degen Maternal Aunt Social History Tobacco Use Smoking status: Never Smokeless tobacco: Never Vaping Use Vaping status: Never Used Substance Use Topics Alcohol use: No Drug use: No Review of Systems Constitutional: Positive for appetite change, fever and malaise/fatigue. Negative for chills and weight loss. HENT: Positive for rhinorrhea and sneezing. Negative for ear pain, hoarse voice, postnasal drip, sore throat and trouble swallowing. Respiratory: Positive for cough and sputum production. Negative for hemoptysis, shortness of breathand wheezing. Cardiovascular: Negative for chest pain, dyspnea on exertion and PND. Gastrointestinal: Negative for abdominal pain, heartburn, nausea and vomiting. Genitourinary: Positive for dysuria and frequency. Negative for flank pain, hematuria, hesitancy and urgency. Musculoskeletal: Positive for myalgias. Negative for arthralgias and back pain. Skin: Negative for color change, pallor and rash. Allergic/Immunologic: Negative for environmental allergies, food allergies and immunocompromised state. Neurological: Positive for headaches. Negative for dizziness and facial asymmetry. Hematological: Negative for adenopathy. Does not bruise/bleed easily. Psychiatric/Behavioral: Negative for agitation and behavioral problems. Objective BP 130/82 Pulse 68 Temp 37.5 C (99.5 F) Wt 110 kg (242 lb 8.1 oz) SpO2 96% BMI 43.51 kg/m Physical Exam Vitals and nursing note reviewed. Constitutional: General: She is not in acute distress. Appearance: Normal appearance. She is obese. She is not ill-appearing, toxic- appearing or diaphoretic. HENT: Head: Normocephalic and atraumatic. Right Ear: Ear canal and external ear normal. Left Ear: Ear canal and external ear normal. Nose: Rhinorrhea present. No congestion. Mouth/Throat: Mouth: Mucous membranes are moist. Pharynx: No oropharyngeal exudate or posterior oropharyngeal erythema. Eyes: General: Right eye: No discharge. Left eye: No discharge. Extraocular Movements: Extraocular movements intact. Conjunctiva/sclera: Conjunctivae normal. Pupils: Pupils are equal, round, and reactive to light. Cardiovascular: Rate and Rhythm: Normal rate and regular rhythm. Pulses: Normal pulses. Heart sounds: Normal heart sounds. No murmur heard. No friction rub. Pulmonary: Effort: Pulmonary effort is normal. No respiratory distress. Breath sounds: Normal breath sounds. No stridor. No wheezing, rhonchi or rales. Comments: Harsh cough noted Chest: Chest wall: No tenderness. Abdominal: General: Abdomen is flat. There is no distension. Palpations: Abdomen is soft. There is no mass. Tenderness: There is no abdominal tenderness. There is no right CVA tenderness, left CVA tenderness, guarding or rebound. Hernia: No hernia is present. Musculoskeletal: General: No swelling, tenderness, deformity or signs of injury. Normal range of motion. Cervical back: Normal range of motion and neck supple. No rigidity. Right lower leg: No edema. Left lower leg: No edema. Lymphadenopathy: Cervical: Cervical adenopathy present. Skin: General: Skin is warm and dry. Capillary Refill: Capillary refill takes less than 2 seconds. Coloration: Skin is not jaundiced or pale. Findings: No bruising, erythema, lesion or rash. Neurological: General: No focal deficit present. Mental Status: She is alert and oriented to person, place, and time. Cranial Nerves: No cranial nerve deficit. Sensory: No sensory deficit. Motor: No weakness. Coordination: Coordination normal. Gait: Gait normal. Psychiatric: Mood and Affect: Mood normal. Behavior: Behavior normal. Thought Content: Thought content normal. Judgment: Judgment normal. Assessment and Plan ASSESSMENT/PLAN: 1. Burning with urination - ICD9: 788.1, ICD10: R30.0 (primary diagnosis) X 2 days No red flags acute - UA positive for nolvia esterase, hematuria, and proteinuria - Send urine for culture - Begin treatment with Macrobid 100 mg BID for 5 days - Patient education for prevention given - UA DIP, URINE (POC) - BACTERIAL CULTURE, URINE 2. Acute cough - ICD9: 786.2, ICD10: R05.1 X 2 weeks Harsh cough noted - XR CHEST 2V FRONTAL/LAT-negative Continue supportive F/U with PCP for continued sx 3. URI, acute - ICD9: 465.9, ICD10: J06.9 - Discussed viral etiology and rationale for treatment. - Symptomatic treatment with prn analgesia - Supportive care with fluids and rest Elida Lozada APRN.CRISIS COUNSELOR documented in this encounterAcm[facility] System01-03-2025 History of Present illness Narrative* Lanie Matute RN - 09/24/2024 1:23 PM EST Pt here for C1 D8 of Rituxan. Completed initial dosing without any signs of reaction. Pt states that she just feels tired at completion. Daughter to pickling tank operator. Denies any other issues or concerns Lanie Matute RN documented in this encounterAcmc Healthcare System12-30-2024 Telephone encounter Note * Telephone Encounter - Chinyere Shea RN - 09/20/2024 10:40 AM EST CYCLE 1/DAY 1 POST TREATMENT CALL Today's date: September 20, 2024 Treatment Regimen: Restarted Rituxan C1D1 Date: 09/17/24 Called patient to follow-up on symptom management. Spoke with patient, I'm ok SYMPTOM ASSESSMENT Neuro: States she feels weaker, able to take care of herself, ADL's CV/Resp: None GI/: Diarrhea: yes, past 2 days, 1-2 episodes each day, has not been using any anti- diarrheal. Instructed patient to take anti-diarrheal if any diarrhea today. She states she has medication at home, and states understanding. Encouraged to push fluids. Integument: None Activity: Activity Level (0-100%): decreased Pain: legs ache, no new, uses Tylenol and helps Fever: No Chills: No Any new referrals needed? No Reinforced CURRENT treatment education based on current and anticipated symptoms. Discussed port/line care and patient verbalizes understanding: Not Applicable Patient instructed to contact office or after hours Hematology/Oncology fellow for: temperature >= 100.4; questions or concerns. Patient verbalized understanding of when to seek medical attention and after hours number protocol. Chinyere Shea RN [facility] Work Phone: [phone] 419-249912-30-2024 Miscellaneous Notes* Telephone Encounter - Chinyere Shea RN - 09/20/2024 10:40 AM EST CYCLE 1/DAY 1 POST TREATMENT CALL Today's date: September 20, 2024 Treatment Regimen: Restarted Rituxan C1D1 Date: 09/17/24 Called patient to follow-up on symptom management. Spoke with patient, I'm ok SYMPTOM ASSESSMENT Neuro: States she feels weaker, able to take care of herself, ADL's CV/Resp: None GI/: Diarrhea: yes, past 2 days, 1-2 episodes each day, has not been using any anti- diarrheal. Instructed patient to take anti-diarrheal if any diarrhea today. She states she has medication at home, and states understanding. Encouraged to push fluids. Integument: None Activity: Activity Level (0-100%): decreased Pain: legs ache, no new, uses Tylenol and helps Fever: No Chills: No Any new referrals needed? No Reinforced CURRENT treatment education based on current and anticipated symptoms. Discussed port/line care and patient verbalizes understanding: Not Applicable Patient instructed to contact office or after hours Hematology/Oncology fellow for: temperature >= 100.4; questions or concerns. Patient verbalized understanding of when to seek medical attention and after hours number protocol. Chinyere Shea RN documented in this encounterAcmc Healthcare System12-27-2024 History of Present illness Narrative* Ashley Castillo RN - 09/17/2024 10:36 AM EST 1037 Stopped Rituxan d/t rigors. IVF began. Asad Deras APRN chairside. Vitals in flowsheet. Pt requested me to not call dtr at this time. Hypersensitivity medications given per Asad. 1104 Called dtr at this time to update her. Ok per pt. 1122 Rigors subsided. Pt stated she felt much better. IVF stopped. Ok to restart Rituxan at 150mg/hr per Asad Deras APRN. Dtr made aware of restart. documented in this encounterAcmc Healthcare System12-16-2024 Telephone encounter Note * Telephone Encounter - Flor Moore - 09/06/2024 12:15 PM EST Patient is active with Medicare A&B/[facility] AARP Supplement, LOC 100%, $240 deductible has $0 remaining, $1632 OOP has $1632 remaining. Estimate shows patient financial responsibility is $1,025.51 for each treatment in 2023 until oop max is reached. Called the patient to discuss, left a voicemail to return call and sent my contact info with [employer] via [employer]. Reference #[id number] [facility]12-16-2024 Miscellaneous Notes* Telephone Encounter - Flor Moore - 09/06/2024 12:15 PM EST Patient is active with Medicare A&B/[facility] AARP Supplement, LOC 100%, $240 deductible has $0 remaining, $1632 OOP has $1632 remaining. Estimate shows patient financial responsibility is $1,025.51 for each treatment in 2023 until oop max is reached. Called the patient to discuss, left a voicemail to return call and sent my contact info with Felix Wilcox via [employer]. Reference #[id number] documented in this encounterAcmc [facility] System12-13-2024 Telephone encounter Note * Telephone Encounter - Lou Rincon - 09/03/2024 2:13 PM EST Patient already scheduled. Lou Rincon [facility]12-13-2024 Miscellaneous Notes* Telephone Encounter - Lou Rincon - 09/03/2024 2:13 PM EST Patient already scheduled. Lou Rincon * Telephone Encounter - Shannon Hui RN - 09/03/2024 12:46 PM EST 6 weeks after finishing rituximab- CBC/CMP/LDH/CT C/A/P then OV with Dr. Quintero 1 week later. Shannon Hui RN * Telephone Encounter - Lou Rincon - 09/03/2024 12:33 PM EST Spoke with patient and scheduled. Please advise re: follow up office visit. Lou Rincon * Telephone Encounter - Shaina Michel - 09/03/2024 11:35 AM EST Begin weekly rituximab 09/10/2024 X4 weeks. Will need CBC/CMP/LDH/Uric acid for cycle 1- may be a straight back for that. Will need CBC only for weeks 2, 3 and 4. documented in this encounterAcmc Healthcare System12-13-2024 Telephone encounter Note * Telephone Encounter - Shannon Hui RN - 09/03/2024 12:46 PM EST 6 weeks after finishing rituximab- CBC/CMP/LDH/CT C/A/P then OV with Dr. Quintero 1 week later. Shannon Hui RN [facility]12-13-2024 Telephone encounter Note* Telephone Encounter - Lou Rincon - 09/03/2024 12:33 PM EST Spoke with patient and scheduled. Please advise re: follow up office visit. Lou Rincon [facility]12-13-[facility] Telephone encounter Note* Telephone Encounter - Shannon Hui RN - 09/03/2024 11:35 AM EST ONCOLOGY PATIENT EDUCATION NOTE Met with patients daughter and introduced myself. Patient was given a folder with chemocare information, office contact information, and additional resource sheets. Daughter declined the need for a chemo education call since patient has had this in the past. Daughter aware this nurse will still call patient for a C1 call. Shannon Hui RN [facility]12-13-2024 Telephone encounter Note* Telephone Encounter - Shaina Michel - 09/03/2024 11:35 AM EST Begin weekly rituximab 09/10/2024 X4 weeks. Will need CBC/CMP/LDH/Uric acid for cycle 1- may be a straight back for that. Will need CBC only for weeks 2, 3 and 4. [facility]12-13-[facility]24 Miscellaneous Notes* Telephone Encounter - Shannon Hui RN - 09/03/2024 11:35 AM EST ONCOLOGY PATIENT EDUCATION NOTE Met with patients daughter and introduced myself. Patient was given a folder with chemocare information, office contact information, and additional resource sheets. Daughter declined the need for a chemo education call since patient has had this in the past. Daughter aware this nurse will still call patient for a C1 call. Shannon Hui RN documented in this encounterAcmc [facility] System12-13-2024 History of Present illness Narrative* César Quintero, - 09/03/2024 10:47 AM EST Elements copied from Brendon Coppola APRN.CRISIS COUNSELOR note dated 12/16/2023 have been reviewed and updated where appropriate and all reflect current assessment and medical decision making during today's encounter. HPI: Lisa Up is an 78 year old female who presents here today for follow up lymphoma. H/o swelling in her neck and chest tightness who presented with an abnormal CT scan of the neck andchest. She had generalized adenopathy involving her supraclavicular, bilateral axillary, and subcarinal regions. 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 Removal of her prosthesis because of recurrent infection. She had no unexplained weight loss or increased fatigue. She had multiple transfusions in the past from her surgery. She denied history of hepatitis or HIV infection. 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 FINAL DIAGNOSIS A. 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 - See comment. Flow cytometric analysis of the bone marrow aspirate reveals that 15% of total events have the [id number] side scatter properties of lymphocytes. Interpretation: The lymphocytes are composed of a mixture of T cells (58%; CD4:CD8 ratio = 1.15), NK cells (4%) andB cells (34%). The majority of the B cells display an abnormal immunophenotype, and are positive for CD19, CD20 (bright), CD45 and kappa surface light chain. The B cells are negative for CD5, CD10 and the the remaining markers tested. CD200 could not be interpreted on the abnormal B cells due to nonspecific staining. Granulocytic elements are 64% of the events. Blasts are not increased. The findings are diagnostic of involvement by a B-cell lymphoproliferative disorder. Previous treatment: Rituximab -Bendamustine (started on 06/27/2022) She completed 2 cycle of chemotherapy in August 2022, unfortunately she had acute cholecystitis and subsequently had a laparoscopic cholecystectomy. Presents for ongoing oncologic management. Interim history: She has been having more numbness in her legs due to complications of her previous back surgery. Uses a walker. Also has fluctuating symptoms of disequilibrium. No abdominal pain. Fatigued. PAST MEDICAL HISTORY Diagnosis Date ANXIETY STATE NOS 06/07/2005 Arthritis Cancer (HCC) Carpal tunnel syndrome 06/07/2005 Cholelithiasis 06/17/2012 DEPRESSIVE DISORDER NEC 06/07/2005 Diverticulosis of colon (without mention of hemorrhage) Dizziness and giddiness 02/26/2010 GENERAL OSTEOARTHROSIS 06/07/2005 Goiter, unspecified 12/11/2010 Headache(784.0) 02/26/2010 Chronic. 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 Ramírez, severe PAST SURGICAL HISTORY Procedure Laterality Date ABDOMINAL SURGERY HX ARTHRP KNE CONDYLE&PLATU MEDIAL&LAT COMPARTMENTS February2010 Knee replacement, total, Left ARTHRP KNE CONDYLE&PLATU MEDIAL&LAT COMPARTMENTS 07/2010 Knee replacement, total, Right BACK SURGERY HX COLONOSCOPY FLX DX W/COLLJ SPEC WHEN PFRMD 06/05/2011 Colonoscopy COLONOSCOPY FLX DX W/COLLJ SPEC WHEN PFRMD N/A 12/04/2016 ESOPHAGOGASTRODUODENOSCOPY TRANSORAL DIAGNOSTIC N/A 12/04/2016 DEVORA FILTER 2019 INSJ TUNNELED CTR VAD W/SUBQ PORT AGE 5 YR/> 06/05/2022 JOINT REPLACEMENT HX L'SCOPE CHOLECYSTECTOMY 07/30/2022 Dr Gonzalez NEPHRECTOMY PARTIAL 1986 Nephrectomy, partial left (benign) PAST SURGICAL HISTORY OF 06/2018 lumbar burger with wound infection TONSILLECTOMY HX TOTAL ABDOMINAL HYSTERECT W/WO RMVL TUBE OVARY 1985 Hysterectomy, NEISHA VAGINAL HYSTERECTOMY ALLERGIES Allergen Reactions Covid-19 Vaccine, M* Anaphylaxis Adhesive Rash Blisters and dermatitis from op site dressing and tape Erythromycin Rash, GI Upset Urticarial rash, seen in [place] [facility] Latex Swelling Lisinopril Swelling Nafcillin Itching 06/29/21 negative penicillin skin testing. Passed oral amoxicillin challenge. Nifedipine Rash Norvasc [Amlodipine* Swelling Wasps Mental Status Change, Rash Current Outpatient Medications Medication Sig atogepant (QULIPTA) 60 mg tablet Take 1 tablet (60 mg) by mouth once daily. rimegepant (NURTEC ODT) 75 mg disintegrating tablet Take 1 tablet by mouth once daily as needed. phenazopyridine (PYRIDIUM) 200 mg tablet Take 1 tablet by mouth three times a day as needed. meclizine (ANTIVERT) 25 mg tab Take 1 tablet by mouth three times a day as needed. losartan (COZAAR) 100 mg tablet Take 1 tablet by mouth once daily. apixaban (ELIQUIS) 5 mg tab(s) Take 1 tablet by mouth two times a day. gabapentin (NEURONTIN) 400 mg capsule Take 1 capsule by mouth two times a day for 180 days. levothyroxine (SYNTHROID) 75 mcg tablet Take 1 tablet by mouth daily before breakfast. EPINEPHrine (EPIPEN) 0.3 mg/0.3 mL auto-injector Use as directed potassium chloride (K-TAB) 10 mEq tablet Take 1 tablet by mouth two times a day. carvedilol (COREG) 25 mg tablet Take 1 tablet by mouth two times a day. omeprazole (PRILOSEC) 20 mg capsule Take 1 capsule by mouth once daily. PARoxetine (PAXIL) 10 mg tablet Take 1 tablet by mouth once daily. OTC PRODUCT Super Snooze with Melatonin: Take one capsule by mouth at bedtime as needed. acetaminophen 650 mg CR tablet Take 650 mg by mouth every 8 hours as needed. multivitamin/iron/folic acid (CENTRUM ULTRA WOMEN'S ORAL) Take 1 tablet by mouth once daily. hydrALAZINE (APRESOLINE) 25 mg tablet Take 2 tablets by mouth two times a day. iv contrast (will be provided with radiology test) CT Chest W -Inject, intravenously, once for 1 dose.No IV access, insert saline lock prior to the beginning of sedation, infusion, injection of imaging exam. Discontinue saline lock post exam. If Pt. has a central line or IVAD, may access for administration according to line specific nursing protocol. Once exam is complete flush line and de-accessaccording to line specific nursing protocol in the CT contrast administration guidelines link. iv contrast (will be provided with radiology test) CT ABD/PEL -Inject, intravenously, once for 1 dose.No IV access, insert saline lock prior to the beginning of sedation, infusion, injection of imaging exam. Discontinue saline lock post exam. If Pt. has a central line or IVAD, may access for administration according to line specific nursing protocol. Once exam is complete flush line and de-accessaccording to line specific nursing protocol in the CT contrast administration guidelines link. enteric contrast (will be provided with radiology test) For CT ABD/PEL W IVCON Routine order Administer, As Directed One Time Only, via Oral, Rectal, both Oral and Rectal, Enteric Tube, Stoma or Indwelling Catheter, Enteric Contrast as designated per enteric contrast guidelines No current facility-administered medications for this visit. Social History Tobacco Use Smoking status: Never Smokeless tobacco: Never Vaping Use Vaping status: Never Used Substance Use Topics Alcohol use: No Drug use: No Family History Problem Relation Age of Onset Heart Mother Cancer Mother lung Heart Father other (Other) Father Heart Brother [place], aneurysm Migraines Daughter Macular Degen Maternal Aunt ROS: Constitutional: No fevers. Neuro: See above. HEENT: No recent change in voice, vision or hearing. Resp: No cough, wheeze of hemoptysis. No shortness of breath at rest. CVS: No exertional chest pain. GI: No n/v, change in bowel habits. : No dysuria or gross hematuria. Urinary stress incontinence. Endo: No hot flashes. Derm: No current rash. Heme: No unusual bleeding and unexplained bruising. Psych: Normal mood. PHYSICAL EXAM: Vitals: Blood pressure 91/56, pulse 68, temperature 36.4 C (97.6 F), temperature source Temporal, weight 108.6 kg (239 lb 8 oz), SpO2 97%. Fatigued appearing and in no acute distress. EYES: Sclerae are anicteric bilaterally. LYMPHATIC: There is no palpable cervical, supraclavicular, axillary adenopathy. CARDIOVASCULAR: Rhythm is regular. ABDOMEN: The abdomen is nondistended. Extremities: No swelling or edema. SKIN: No jaundice. ASSESSMENT/PLAN: 1. 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 -CR following 2 cycles of BR. -CTs indicate further progression of disease. Mild hydronephrosis likely caused by adenopathy. Treatment indicated. -I discussed the rationale, logistics, potential risks (including but not limited to infusion reaction, PML, infections and the small potential for as a consequence of severe toxicity/complications of therapy), benefits and alternatives, as well as the personnel involved in the administrationof rituximab. I answered her and her daughter's questions in detail and she verbalized understanding and agreed with the recommended therapy. Please see the electronic consent document for details ofdoses and schedule. Plan: -Rituximab weekly x4 then CT about 6 weeks later. -If no response or progression then PET scan with potential directed biopsy. Portions of this documentation were copied and pasted from previous office visit notes as above in order to provide a cohesive continuity of the history. The note has been reviewed and edited and updated as necessary. César Quintero DO documented in this encounterAcmc Healthcare System12-06-2024 History of Present illness Narrative* Dannielle Doll RT(R) - 08/27/2024 11:20 AM EST Radiology Service Progress Note DATE OF SERVICE: August 27, 2024 TIME: 11:44 AM PATIENT IDENTITY VERIFICATION COMPLETED USING TWO (2) STANDARD IDENTIFIERS: Name and Date of confirmed by patient verbally. FALL SCREENING: Has the patient had 2 falls in the last year or 1 fall with injury or currently using an Ambulatory Assistive Device (Walker, Cane, Wheelchair, Crutches, etc.)? No PATIENT GENDER DATA: Female. status: : No status: NO. PATIENT RELEVANT IMPLANT DATA REVIEWED: Not Applicable PATIENT PRESENTS WITH AN IMPLANTABLE OR ATTACHED COLLECTIVE BARGAINING SPECIALIST: No ALLERGIES: Reviewed and unchanged CONTRAST ALLERGY: NO. EXAM: CT -CONTRAST INDUCED NEPHROPATHY RISK FACTORS: Patient age > 60 years CREATININE: Creatinine Date Value Ref Range Status 08/27/2024 0.95 0.58 - 0.96 mg/dL Final 04/02/2024 0.81 0.58 - 0.96 mg/dL Final 03/15/2024 0.80 0.58 - 0.96 mg/dL Final Estimated Glomerular Filtration Rate Date Value Ref Range Status 08/27/2024 61 >=60 mL/min/1.73m Final Comment: Estimated Glomerular Filtration Rate (eGFR) is calculated using the 2020 CKD-EPI creatinine equation. This equation utilizes serum creatinine, sex, and age as parameters. The creatinine assay has traceable calibration to isotope dilution- mass spectrometry. Refer to KDIGO guidelines for clinical interpretation. In patients with unstable renal function, e.g. those with acute kidney injury, the eGFRmay not accurately reflect actual GFR. eGFR- Date Value Ref Range Status 10/18/2021 >60 Final P.O.C.T. RESULTS: POC done: Yes, See Lab Tab August 27, 2024 TREATMENT: N/A PERIPHERAL IV DATA: Ambulatory: A peripheral IV was started in the Left with a Angio cath: 22 gauge. RADIOLOGY DEPARTMENT: CT; Exam(s) Completed: Chest Abdomen Pelvis SIGNATURE: RT Blanca(R) PATIENT NAME: Lisa Up DATE: August 27, 2024 TIME: 11:44 AM documented in this encounterAcmc Healthcare System11-21-2024 History of Present illness Narrative* Barbara Owusu, RT(R) - 08/12/2024 12:30 PM EST Radiology Service Progress Note DATE OF SERVICE: August 12, 2024 TIME: 12:57 PM PATIENT IDENTITY VERIFICATION COMPLETED USING TWO (2) STANDARD IDENTIFIERS: Name and Date of confirmed by patient verbally. FALL SCREENING: Has the patient had 2 falls in the last year or 1 fall with injury or currently using an Ambulatory Assistive Device (Walker, Cane, Wheelchair, Crutches, etc.)? Yes, Patient High Riskfor Falls What interventions were put in place to prevent falls during this visit? Instructed Patient to Callfor Help if Needed, Offered Assistance with Transfers/Clothing, Instructed Patient to Remain Seated(Not on Exam Table) Until Exam, and Increased Observations by Caregivers PATIENT GENDER DATA: Female. status: : No status: NO. PATIENT RELEVANT IMPLANT DATA REVIEWED: Yes PATIENT PRESENTS WITH AN IMPLANTABLE OR ATTACHED COLLECTIVE BARGAINING SPECIALIST: No ALLERGIES: Reviewed and unchanged CONTRAST ALLERGY: NO. EXAM: MRI - CONTRAST TYPE: GROUP II PERIPHERAL IV DATA: Ambulatory: A peripheral IV was started in the Left antecubital site with a Angio cath: 22 gauge. RADIOLOGY DEPARTMENT: MR; Exam(s) Completed: Head: Routine Brain SIGNATURE: RT Tanner(R) PATIENT NAME: Lisa Up DATE: August 12, 2024 TIME: 12:57 PM documented in this encounterA[facility]11-20-2024 Telephone encounter Note * Telephone Encounter - Sera Bills RN - 08/11/2024 10:26 AM EST Triage Protocol Recommended: call 911/to ER now. Pt and daughter agreeable. Reason for Disposition [1] Systolic BP < 90 AND [2] feeling weak or lightheaded (e.g., woozy, feeling like they might faint) Answer Assessment - Initial Assessment Questions Patient calling with daughter Shauna on line as well. Patient took a Zanaflex muscle relaxant approximately 30 min ago for neck and back discomfort. Has not taken this medication in a long time. Her BP continues to decrease this morning and she and her daughter are concerned. BP earlier was 88/74, now 79/55. Pt feeling dizzy and unstable when walking. Speech possibly faintly slurred and relaxed. Patient is answering questions appropriately. She is sitting down currently. Her daughter will remainwith her. 1. BLOOD PRESSURE: 79/55 2. ONSET: approx 30 minutes ago 3. HOW: used automatic home BP monitor 4. HISTORY: yes: HTN, *see history 5. MEDICINES: Pt is taking BP medications and other medications that could contribute to hypotension 6. PULSE RATE: Not measured 7. OTHER SYMPTOMS: as stated above Protocols used: Blood Pressure - [id number] [facility]11-20-2024 Miscellaneous Notes* Telephone Encounter - Sera Bills RN - 08/11/2024 10:26 AM EST Triage Protocol Recommended: call 911/to ER now. Pt and daughter agreeable. Reason for Disposition [1] Systolic BP < 90 AND [2] feeling weak or lightheaded (e.g., woozy, feeling like they might faint) Answer Assessment - Initial Assessment Questions Patient calling with daughter Shauna on line as well. Patient took a Zanaflex muscle relaxant approximately 30 min ago for neck and back discomfort. Has not taken this medication in a long time. Her BP continues to decrease this morning and she and her daughter are concerned. BP earlier was 88/74, now 79/55. Pt feeling dizzy and unstable when walking. Speech possibly faintly slurred and relaxed. Patient is answering questions appropriately. She is sitting down currently. Her daughter will remainwith her. 1. BLOOD PRESSURE: 79/55 2. ONSET: approx 30 minutes ago 3. HOW: used automatic home BP monitor 4. HISTORY: yes: HTN, *see history 5. MEDICINES: Pt is taking BP medications and other medications that could contribute to hypotension 6. PULSE RATE: Not measured 7. OTHER SYMPTOMS: as stated above Protocols used: Blood Pressure - [id number] documented in this encounterAcmc Healthcare System11-06-2024 Telephone encounter Note * Telephone Encounter - Elmira Monroy MA - 07/28/2024 7:37 PM EST Pt was notified of the results. Pt verbalized understanding. Elmira Monroy MA [facility]11-06-2024 Miscellaneous Notes* Telephone Encounter - Elmira Monroy MA - 07/28/2024 7:37 PM EST Pt was notified of the results. Pt verbalized understanding. Elmira Monroy MA * Telephone Encounter - Elida Lozada APRN.CNP - 07/28/2024 4:39 PM EST Urine culture reveals mixed microbes This can occur at time of collection secondary to contamination by skin. Patient can complete ATB, follow up with PCP to repeat specimen. Ensure blood has resolved and infection has resolved. Please advise. documented in this encounterAcmc [facility] System11-06-2024 Telephone encounter Note * Telephone Encounter - Elida Lozada APRN.CNP - 07/28/2024 4:39 PM EST Urine culture reveals mixed microbes This can occur at time of collection secondary to contamination by skin. Patient can complete ATB, follow up with PCP to repeat specimen. Ensure blood has resolved and infection has resolved. Please advise. [facility] Work Phone: [phone] 159-689111-06-2024 Telephone encounter Note* Telephone Encounter - Bhavana Limon LPN - 07/28/2024 12:27 PM EST Images from the original note were not included. [facility] Miscellaneous Notes* Telephone Encounter - Bhavana Limon LPN - 07/28/2024 12:27 PM EST Images from the original note were not included. documented in this encounterAcmc Healthcare System2024 Instructions* Patient Instructions* Helen Bonilla APRN.LEONCIO - 07/27/2024 2:21 PM EST ASSESSMENT/PLAN: 1. Burning with urination - ICD9: 788.1, ICD10: R30.0 (primary diagnosis) acute - UA positive for nolvia esterase, hematuria, and proteinuria - Send urine for culture - Begin treatment with Macrobid 100 mg BID for 5 days - UA DIP, URINE (POC) - URINE CULTURE - PHENAZOPYRIDINE 200 MG TABLET 2. Acute cystitis with hematuria - ICD9: 595.0, ICD10: N30.01 - NITROFURANTOIN MONOHYDRATE & MACROCRYSTAL 100 MG ORAL CAP - Follow-up with your PCP in 3-5 days if symptoms have not improved or sooner if symptoms worsen - Discussed red flags and need for immediate medical evaluation if any occur. - Discussed supportive care treatment with fluids, rest and analgesia. - Discussed expected course of illness Helen Bonilla APRN.CRISIS COUNSELOR [facility] PATIENT INFO BLADDER INFECTION OVERVIEW Bladder infections are one of the most common infections, causing symptoms of burning with urination and needing to urinate frequently. A bladder infection is a type of urinary tract infection (UTI).Bladder infections are more common is women than men. Most women have an uncomplicated bladder infection that is easily treated with a short course of antibiotics. In men, bladder infections may alsoaffect the prostate gland, and a longer course of treatment may be needed. BLADDER INFECTION CAUSES The urinary tract includes the kidneys (which filter urine), ureters (the tube that carries urine from the kidneys to the bladder), the bladder (which stores urine), and urethra (the tube that carries urine out of the bladder). Bacteria do not normally live in these areas. However, bacteria normally live close to the urethra in women and men who are not circumcised. Bladder infections occur when bacteria travel up the urethra into the bladder. Factors that increase the risk of developing a bladder infection include: Vaginal sex Use of spermicides History of past bladder infections Diabetes In men, not being circumcised or having anal sex increase the risk of bladder infections. BLADDER INFECTION SYMPTOMS The typical symptoms of a bladder infection include: Pain or burning when urinating Frequent need to urinate Urgent need to urinate Blood in the urine Fever, back pain, nausea, or vomiting are not common symptoms of a bladder infection, but can occurin people with a kidney infection (pyelonephritis). If you have these symptoms, you should call your doctor or nurse immediately. Is it a bladder infection or something else? -- Burning with urination can also occur in people with vaginitis (eg, yeast infection) or urethritis (inflammation of the urethra). For this reason, it is important to call your healthcare provider before assuming you have a bladder infection. BLADDER INFECTION DIAGNOSIS Simple bladder infections are usually diagnosed based upon your symptoms alone. However, most patients, especially those who have bladder infection symptoms for the first time, should see a healthcare provider for urine testing. Urine culture -- A urine culture is a test that uses a sample of urine to try and grow bacteria in a laboratory. It usually requires about 48 hours to get results. However, a urine culture is not always required to diagnose a bladder infection. Urine culture is often recommended if: You have never had a bladder infection before You have symptoms that are not typical for bladder infection You have had resistant bladder infections before You have frequent bladder infections You do not begin to feel better within 24 to 48 hours after starting antibiotics You are BLADDER INFECTION TREATMENT Bladder infection -- In young, healthy adolescents and adults with a bladder infection, the usual treatment includes a three to seven day course of antibiotics. The typical drugs chosen are: trimethoprim-sulfamethoxazole (Bactrim ), nitrofurantoin (Macrobid ), ciprofloxacin (Cipro ) or levofloxacin (Levaquin ). In men, the infection may involve your prostate gland and treatment is usually given for at least 7days. Your symptoms should begin to resolve within one day after starting treatment. It is important to take the full course of antibiotics to completely eliminate the infection. If your symptoms persist for more than two or three days after starting treatment, call your healthcare provider. If needed, you can take a prescription medication that numbs the bladder and urethra (phenazopyridine [Pyridium ]) to reduce the burning pain of some UTIs. A similar medication is available without aprescription (eg, Uristat). Both medications change the color of the urine (usually blue or orange)and can interfere with laboratory testing. You should not take these medications for more than 48 hours due to the risk of side effects. These medications do not treat the infection and must be takenalong with an antibiotic. Some providers recommend drinking more fluids while treating bladder infections to help flush bacteria from the bladder. Others believe that drinking more fluids may dilute the antibiotic in the bladder and make the medication less effective. No studies have been performed to address this issue. There are also no good studies on the effectiveness of cranberry juice for treating a bladder infection; we do not recommend using cranberry juice to treat bladder infections. Follow-up care -- Follow-up testing is not needed in healthy, young men or women with a bladder infection if symptoms resolve. women are usually asked to have a repeat urine culture one to two weeks after treatment has ended to make sure the bacteria are no longer in the urine. RECURRENT BLADDER INFECTIONS Bladder infections versus other causes -- Some adults, especially women, develop bladder infectionsfrequently. In this case, it is important to confirm that your symptoms (eg, pain or burning, frequency, and urgency) are caused by a bladder infection. Symptoms are usually similar from one infection to another. The best way to confirm an infection is to have a urine culture. If your urine culture is negative for infection, other causes of pain, burning, and frequency should be investigated. There is no reason to take antibiotics if your urine culture is negative. Need for further testing -- If you continue to develop bladder infections, you may require further testing. If you continue to notice blood in your urine after your bladder infection has cleared, you should have further testing. Preventing recurrent UTIs -- Women with recurrent urinary tract infections may be advised to take steps to prevent bladder infections, including one or more of the following: Changes in control -- Women who develop frequent bladder infections and use spermicides, particularly those who also use a diaphragm, may be encouraged to use an alternate method of control. Cranberry products -- Taking cranberry juice or cranberry tablets has been promoted as one way to help prevent frequent bladder infections. However, this has not been proven. Drinking more fluid and urinating after intercourse -- Although studies have not proven that drinking more fluids or urinating soon after intercourse can prevent infection, some healthcare providers recommend these measures since they are not harmful. Drinking more fluid may help to wash out bacteria that enter the bladder. Postmenopausal women -- Postmenopausal women who develop recurrent bladder infections may benefit from using vaginal estrogen. Vaginal estrogen is available in a flexible ring that is worn in the vagina for three months (eg, Estring ), a small tablet (Vagifem ), or a cream (eg, Premarin or Estrace ). Vaginal estrogen is discussed in more detail in a separate topic review. Antibiotics -- A preventive antibiotic treatment may be recommended if you repeatedly develop bladder infections and have not responded to other preventive measures. Antibiotics are highly effective in preventing recurrent bladder infections and can be taken in several different ways. Preventive antibiotic -- You can take a low dose of an antibiotic once per day or three times per week for six months to several years. Antibiotics following intercourse -- In women who develop urinary tract infections after sex, taking a single low dose antibiotic after intercourse can help to prevent bladder infections. Self-treatment -- A plan to begin antibiotics at the first sign of a bladder infection may be recommended in some situations. Before starting this regimen, it is important that you have had testing (urine cultures) to confirm that your symptoms are caused by a bladder infection; some people have symptoms of a bladder infection but do not actually have an infection. documented in this encounterAcmc [facility] System2024 History of Present illness Narrative* Helen Bonilla APRN.LEONCIO - 07/27/2024 2:05 PM EST Subjective HPI Lisa pU is a 78 year old female who presents with dysuria, frequency for the past 4 days. States she has a lot of pain in bladder area at end of urination. She has not had a fever. She has had some chills. She denies nausea or vomiting. She has not taken any medication for her symptoms. Review of Systems Constitutional: Positive for chills. Negative for fever. Respiratory: Negative. Cardiovascular: Negative. Gastrointestinal: Negative for abdominal pain, nausea and vomiting. Genitourinary: Positive for dysuria and frequency. Negative for hematuria and urgency. BP 148/93 Pulse 87 Temp 37.2 C (98.9 F) Resp 20 Wt 109 kg (240 lb 4.8 oz) SpO2 98% BMI 42.57 kg/m PAST MEDICAL HISTORY Diagnosis Date ANXIETY STATE NOS 06/07/2005 Arthritis Cancer (HCC) Carpal tunnel syndrome 06/07/2005 Cholelithiasis 06/17/2012 DEPRESSIVE DISORDER NEC 06/07/2005 Diverticulosis of colon (without mention of hemorrhage) Dizziness and giddiness 02/26/2010 GENERAL OSTEOARTHROSIS 06/07/2005 Goiter, unspecified 12/11/2010 Headache(784.0) 02/26/2010 Chronic. 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 Ramírez, severe PAST SURGICAL HISTORY Procedure Laterality Date ABDOMINAL SURGERY HX ARTHRP KNE CONDYLE&PLATU MEDIAL&LAT COMPARTMENTS February2010 Knee replacement, total, Left ARTHRP KNE CONDYLE&PLATU MEDIAL&LAT COMPARTMENTS 07/2010 Knee replacement, total, Right BACK SURGERY HX COLONOSCOPY FLX DX W/COLLJ SPEC WHEN PFRMD 06/05/2011 Colonoscopy COLONOSCOPY FLX DX W/COLLJ SPEC WHEN PFRMD N/A 12/04/2016 ESOPHAGOGASTRODUODENOSCOPY TRANSORAL DIAGNOSTIC N/A 12/04/2016 DEVORA FILTER 2019 INSJ TUNNELED CTR VAD W/SUBQ PORT AGE 5 YR/> 06/05/2022 JOINT REPLACEMENT HX L'SCOPE CHOLECYSTECTOMY 07/30/2022 Dr Gonzalez NEPHRECTOMY PARTIAL 1985 Nephrectomy, partial left (benign) PAST SURGICAL HISTORY OF 06/2018 lumbar burger with wound infection TONSILLECTOMY HX TOTAL ABDOMINAL HYSTERECT W/WO RMVL TUBE OVARY 1985 Hysterectomy, NEISHA VAGINAL HYSTERECTOMY ALLERGIES Covid-19 Vaccine, Mrna, [id number], Lnp-S (Moderna); Adhesive; Erythromycin; Latex; Lisinopril; Nafcillin; Nifedipine; Norvasc [Amlodipine Besylate]; and Wasps MEDICATIONS iv contrast (will be provided with radiology test) MRI Brain Inject, intravenously, once for 1 dose.No IV access, insert saline lock prior to beginning of sedation, infusion, injection of imaging exam.Discontinue saline lock post exam. If Pt. has a central line or IVAD, may access for administration according to line specific nursing protocol.Once exam is complete flush line and de-access according to line specific nursing protocol in the MR contrast administration guidelines link atogepant (QULIPTA) 60 mg tablet Take 1 tablet (60 mg) by mouth once daily. rimegepant (NURTEC ODT) 75 mg disintegrating tablet Take 1 tablet by mouth once daily as needed. meclizine (ANTIVERT) 25 mg tab Take 1 tablet by mouth three times a day as needed. losartan (COZAAR) 100 mg tablet Take 1 tablet by mouth once daily. apixaban (ELIQUIS) 5 mg tab(s) Take 1 tablet by mouth two times a day. gabapentin (NEURONTIN) 400 mg capsule Take 1 capsule by mouth two times a day for 180 days. levothyroxine (SYNTHROID) 75 mcg tablet Take 1 tablet by mouth daily before breakfast. EPINEPHrine (EPIPEN) 0.3 mg/0.3 mL auto-injector Use as directed potassium chloride (K-TAB) 10 mEq tablet Take 1 tablet by mouth two times a day. hydrALAZINE (APRESOLINE) 50 mg tablet Take 1 tablet by mouth three times a day. carvedilol (COREG) 25 mg tablet Take 1 tablet by mouth two times a day. omeprazole (PRILOSEC) 20 mg capsule Take 1 capsule by mouth once daily. PARoxetine (PAXIL) 10 mg tablet Take 1 tablet by mouth once daily. OTC PRODUCT Super Snooze with Melatonin: Take one capsule by mouth at bedtime as needed. acetaminophen 650 mg CR tablet Take 650 mg by mouth every 8 hours as needed. multivitamin/iron/folic acid (CENTRUM ULTRA WOMEN'S ORAL) Take 1 tablet by mouth once daily. [DISCONTINUED] hydrALAZINE (APRESOLINE) 25 mg tablet Take 2 tablets by mouth twice daily. FAMILY HISTORY Problem Relation Age of Onset Heart Mother Cancer Mother lung Heart Father other (Other) Father Heart Brother [place], aneurysm Migraines Daughter Macular Degen Maternal Aunt Social History Tobacco Use Smoking status: Never Smokeless tobacco: Never Vaping Use Vaping status: Never Used Substance Use Topics Alcohol use: No Drug use: No Objective Physical Exam Vitals and nursing note reviewed. Constitutional: General: She is not in acute distress. Appearance: Normal appearance. She is not ill-appearing. Cardiovascular: Rate and Rhythm: Normal rate and regular rhythm. Heart sounds: Normal heart sounds. Pulmonary: Effort: Pulmonary effort is normal. No respiratory distress. Breath sounds: Normal breath sounds. No wheezing or rales. Abdominal: Tenderness: There is abdominal tenderness in the suprapubic area. Skin: General: Skin is warm and dry. Neurological: Mental Status: She is alert. Last labs for kidney function: Latest Ref Rng 04/02/2024 Glucose 74 - 99 mg/dL 116 (H) BUN 7 - 21 mg/dL 13 Creatinine 0.58 - 0.96 mg/dL 0.81 Sodium 136 - 144 mmol/L 143 Potassium 3.7 - 5.1 mmol/L 4.1 Chloride 98 - 107 mmol/L 104 CO2 22 - 30 mmol/L 30 Anion Gap 8 - 15 mmol/L 9 Calcium 8.5 - 10.2 mg/dL 9.9 eGFR >=60 mL/min/1.73m 73 Legend: (H) High ASSESSMENT/PLAN: 1. Burning with urination - ICD9: 788.1, ICD10: R30.0 (primary diagnosis) acute - UA positive for nolvia esterase, hematuria, and proteinuria - Send urine for culture - Begin treatment with Macrobid 100 mg BID for 5 days - UA DIP, URINE (POC) - URINE CULTURE - PHENAZOPYRIDINE 200 MG TABLET 2. Acute cystitis with hematuria - ICD9: 595.0, ICD10: N30.01 - NITROFURANTOIN MONOHYDRATE & MACROCRYSTAL 100 MG ORAL CAP - Follow-up with your PCP in 3-5 days if symptoms have not improved or sooner if symptoms worsen - Discussed red flags and need for immediate medical evaluation if any occur. - Discussed supportive care treatment with fluids, rest and analgesia. - Discussed expected course of illness Helen Bonilla APRN.CRISIS COUNSELOR documented in this encounterAcmc [facility] System2024 Instructions* Patient Instructions* Missy Hirsch PA-C - 07/27/2024 1:09 PM EST Preventative: Will start Qulipta 60mg daily for migraine prevention Abortive: Will start nurtec with start of migraine MRI of the brain Follow up in three months Headache Preventive Treatment: Please keep in mind that it takes 4-6 weeks for the medication to start working well and 2-3 monthsat the appropriate dose before deciding if it will be useful or not. If it is not helping at all bythis time, then we will discuss other medications to try. Supplements may take 3-6 months until yousee full effect. Natural supplements: Magnesium Oxide 500 mg at bed Coenzyme Q10 300 mg in AM Vitamin B2- 200 mg twice a day Feverfew 50 mg twice a day Vitamins and herbs that show potential Magnesium: Magnesium (250 mg twice a day or 500 mg at bed) has a relaxant effect on smooth muscles such as blood vessels. Individuals suffering from frequent or daily headache usually have low magnesium levels which can be increase with daily supplementation of 400-750 mg. Three trials found 40-90%average headache reduction when used as a preventative. Magnesium also demonstrated the benefit in menstrually related migraine. Magnesium is part of the messenger system in the serotonin cascade andit is a good muscle relaxant. It is also useful for constipation which can be a side effect of other medications used to treat migraine. Good sources include nuts, whole grains, and tomatoes. Magnesium comes in many different forms: Magnesium glycinate is a good choice for those with a sensitive stomach who have gastrointestinal side effects such as diarrhea with other forms of magnesium. It is anecdotally also helpful with anxiety and sleep. Magnesium threonate also has low risk of gastrointestinal side effects and anecdotally helpful with cognitive function and brain fog symptoms. Magnesium malate has low gastrointestinal side effects and is reportedly more energizing and anecdotally often helpful in fibromyalgia and chronic fatigue syndrome. Magnesium citrate is one of the most studied, popular, and well-absorbed forms of magnesium. It can also be mixed easily with liquids if you can't take pills. However, it comes w ith a higher risk of diarrhea and gastrointestinal side effects, although this could be helpful forthose with constipation. Magnesium oxide is also well studied, cheap, and often used for heartburn and indigestion. However, it is not well absorbed and can have some laxative side effects as well, so can also be helpful for constipation. Riboflavin (vitamin B 2) 200 mg twice a day. This vitamin assists nerve cells in the production of ATP a principal energy storing molecule. It is necessary for many chemical reactions in the body. There have been at least 3 clinical trials of riboflavin using 400 mg per day all of which suggested that migraine frequency can be decreased. All 3 trials showed significant improvement in over half ofmigraine sufferers. The supplement is found in bread, cereal, milk, meat, and poultry. Most Americans get more riboflavin than the recommended daily allowance, however riboflavin deficiency is not necessary for the supplements to help prevent headache. Feverfew: Feverfew is a common garden herb [place] and popular [facility] as a treatment for disorders typically controlled by aspirin. The mechanism of action is unknown but is believed to be related to a chemical called parthenolide which helps the body use serotonin more effectively. Serotonin helps prevent migraine and assists with resolution when it occurs. Parthenolide also inhibits the release of histamine which is linked to pain and inflammation. Consistency of active ingredients in different products can be a problem. Some formulations don't have the active ingredient (parthenolide) that prevents migraine. A parthenolide content of 0.2% is generally recommended. Typical dosage is one capsule 3 times a day. Coenzyme Q10: This is present in almost all cells in the body and is critical component for the conversion of energy. Recent studies have shown that a nutritional supplement of CoQ10 can reduce the frequency of migraine attacks by improving the energy production of cells as with riboflavin. Doses of 150 mg twice a day have been shown to be effective. Melatonin: Increasing evidence shows correlation between melatonin secretion and headache conditions. Melatonin supplementation has decreased headache intensity and duration. It is widely used as a sleep aid. Sleep is natures way of dealing with migraine. A dose of 3 mg is recommended to start for headaches including cluster headache. Higher doses up to 15 mg has been reviewed for use in Cluster headache and have been used. The rationale behind using melatonin for cluster is that many theories regarding the cause of Cluster headache center around the disruption of the normal circadian rhythm in the brain. This helps restore the normal circadian rhythm. Josie: Josie has a small amount of antihistamine and anti-inflammatory action which may help headache. It is primarily used for nausea and may aid in the absorption of other medications. HEADACHE DIET: Foods and beverages which may trigger migraine Note that only 20% of headache patients are food sensitive. You will know if you are food sensitiveif you get a headache consistently 20 minutes to 2 hours after eating a certain food. Only cut out a food if it causes headaches, otherwise you might remove foods you enjoy! What matters most for diet is to eat a well balanced healthy diet full of vegetables and low fat protein, and to not miss meals. Chocolate, other sweets ALL cheeses except cottage and cream cheese Dairy products, yogurt, sour cream, ice cream Liver Meat extracts (Bovril, Marmite, meat tenderizers) Meats or fish which have undergone aging, fermenting, pickling or smoking. These include: Hotdogs,salami,Lox,sausage, mortadellas,smoked salmon, pepperoni, Pickled cassidy Pods of broad vázquez (Uruguayan beans, Armenian pea pods, French (jeremi) beans, parson and navy beans Ripe avocado, ripe banana Yeast extracts or active yeast preparations such as Hunt's or Carroll's (commercial bakes goodsare permitted) Tomato based foods, pizza (lasagna, etc.) MSG (monosodium glutamate) is disguised as many things; look for these common aliases: Monopotassium glutamate Autolysed yeast Hydrolysed protein Sodium caseinate flavorings all natural preservatives Nutrasweet Avoid all other foods that convincingly provoke headaches. Headache Prevention Strategies: 1. Maintain a headache diary; learn to identify and avoid triggers. Common triggers include: Emotional triggers: Emotional/Upset family or friends Emotional/Upset occupation Business reversal/success Anticipation anxiety Crisis-serious Post-crisis periodNew job/position Physical triggers: Vacation Day Weekend Strenuous Exercise High Altitude Location New Move Day Physical Illness Oversleep/Not enough sleep Weather changes Light: Photophobia or light sesnitivity treatment involves a balance between desensitization and reduction in overly strong input. Use dark polarized glasses outside, but not inside. Avoid bright or fluorescent light, but do not dim environment to the point that going into a normally lit room hurts. Consider FL- 41 tint lenses, which reduce the most irritating wavelengths without blocking too muchlight. These can be obtained at [employer] or [employer]: see list above. 2. Limit use of acute treatments (ateg-ndm-nljxecx medications, triptans, etc.) to no more than 2 days per week or 10 days per month to prevent medication overuse headache (rebound headache). 3. Follow a regular schedule (including weekends and holidays): Don't skip meals. Eat a balanced diet. 8 hours of sleep nightly. Minimize stress. Exercise 30 minutes per day. Being overweight is associated with a 5 times increased risk of chronic migraine. Keep well hydrated and drink 6-8 glasses of water per day. 4. Initiate non-pharmacologic measures at the earliest onset of your headache. Rest and quiet environment. Relax and reduce stress. Lpzgpzt7Lddum is a free tanja that can instruct you on some simple relaxtionand breathing techniques. Http://[employer] is a free website that provides teaching videos on relaxation. Also, there are many apps that can be downloaded for mindful relaxation. An tanja called YOGA NIDRA will help walk you through mindfulness. Cold compresses. 5. Don't wait!! Take the maximum allowable dosage of prescribed medication at the first sign of migraine. 6. Compliance: Take prescribed medication regularly as directed and at the first sign of a migraine. 7. Communicate: Call your physician when problems arise, especially if your headaches change, increase in frequency/severity, or become associated with neurological symptoms (weakness, numbness, slurred speech, etc.). 8. Headache/pain management therapies: Consider various complementary methods, including medication, behavioral therapy, psychological counselling, biofeedback, massage therapy, acupuncture, dry needling, and other modalities. Such measures may reduce the need for medications. Counseling for pain ma nagement, where patients learn to function and ignore/minimize their pain, seems to work very well. 9. Recommend changing family's attention and focus away from patient's headaches. Instead, emphasize daily activities. If first question of day is 'How are your headaches/Do you have a headache today?', then patient will constantly think about headaches, thus making them worse. Goal is to re-directattention away from headaches, toward daily activities and other distractions. 10. Helpful Websites: www.AmericanHeadacheSociety.org www.migrainetrust.org www.headaches.org www.migraine.org.uk www.achenet.org 11. HEADACHE EXPECTATIONS: There are many types of headaches, and only a rare few in which complete relief can be expected. Ingeneral, there is no cure for headache, especially migraine based headaches. There is nothing available that completely prevents headaches from occurring, breaking through, or having periodic flare-ups and fluctuations. Regardless of what you are using on a daily basis for prevention, episodic headaches should still be expected, and periods where frequency may escalate and fluctuate are unavoidable. There is no quick fix for most headaches. Furthermore, the longer you have had high frequency headaches (such as chronic daily headache), the longer it will likely take to expect any improvement. In fact, some people will never improve, regardless of how many medications or other treatments we try.Our treatment strategy is to evaluate for possible causes of your headache, although testing is usually always normal, even in cases of daily continuous headaches for years. Most types of headache such as migraine are electrical brain disorders (similar to how epilepsy is an electrical brain disorders). Therefore, there is no testing that will reveal this dysfunctional electrical circuitry suchon MRI, or other testing. We try to find a medication that may help lessen the frequency and/or severity of your headaches. The goal is not to completely stop them from happening, although if that happens, great! Different people respond to different medications, and some people just don't respond to anything, so it's usually a matter of trying different options. We can not predict if or when exac tly you will respond to a treatment that we provide. Preventive headache medications take 4-6 weeks to start working, and 2-3 months to see full effect,assuming you reach an effective dose. Therefore, calling or messaging frequently because you have aheadache flare prior to the 3 month wilner is unlikely to change anything, and unfortunately there isnothing available that will expedite this, so please try to avoid this. Our recommendation will gene rally be to give it adequate time first. If you are unable to wait it out for medications to work, we can also try IV infusions for some temporary relief. O In general, the best that preventive medications or other treatments (including Botox) are able to offer in migraine management (variable in other headache types) is a 50% improvement in frequency and/or severity of headache. That is our goal, and any additional benefit is considered a bonus. Some people do significantly better than this, others do not get close to this. Therefore, if your headaches are not improving by at least 3 months on your preventive strategy, contact us and we can discuss further adjustments. Keep in mind that complete headache cure is not a realistic expectation. Our Team: The nursing staff, and medical assistants are a major part of YOUR TREATMENT TEAM and will be handling your phone calls, [employer] Messages and inquiries, if any. Unless explicitly told otherwise at the time of your office visit, your study results and ensuing treatment plans will be released via [employer] and discussed during your follow-up appointment. MyChart: Please ask the schedulers to give you an activation code. The main way of communication isby W[employer] rather than phone lines, so if you have not signed up, please do so. [employer] is also theway that you can review your labs and testing. We are not able to contact everyone to tell them results are normal. If you do not hear back from us regarding testing you have had, it should be considered normal or within normal range. If you have any questions about the results, you are free to message us. [employer] is meant for simple questions regarding medications, possible side effects, or other simplestraight forward questions in limited sentences, rather than multiple paragraphs of discussion. [employer] is not meant for, or efficient for these complex questions, extensive questions, extensive medication adjustments, complex new symptoms or concerns. These issues beyond simple questions require afollow up visit with myself, one of our physician assistants, nurse practitioners, or a Virtual Visit via computer or smart phone, as detailed further down. Refills: Please pay attention to when your refills will need to be renewed. Due to the volume of phone callsdaily, this could potentially take a few days, although we certainly try to honor your refill requests as soon as we can. You should call at least 1 week in advance of needing a refill to ensure you do not run out of medication. Keep in mind that refill requests on Fridays may not be filled until the following week. In regards to blood work, testing, and radiology reports these are released automatically to the patients. We do not comment on most testing on [employer] in a message or commentary unless there is a concern. You will not receive a message from me of the result unless there is a specific concern of the result I need you to address further in care with us or your primary medical team. Make sure to check your my chart email or tanja. As an international referral center for syncope, autonomic dysfunction, general neurology, headachecare, neuromuscular disease, and other related conditions, seeing patients from across the world, we do not have the resource of time or staffing to address inquiries for accommodations. As such, we do not provide or complete requests for work accommodations, FMLA, disability, or other such forms. We recommend seeking guidance through your primary care provider for these requests. We are happy toprovide our office notes from your visits and other tests or evaluations performed through our clinic, which can be made available upon request to assist you with this process. [facility] History of Present illness Narrative* Missy Hirsch PA-C - 07/27/2024 12:14 PM EST Images from the original note were not included. [facility] Name: Lisa Up Age: [age] year old Gender: female Primary Care Provider: Sylvia Lizama MD Consult requested for dizziness by Judith Pickard. Recommendations will be communicated via shared medical record or US mail. Chief Complaint:New Patient Evaluation (Disorder labyrinth ) 07/27/2024 - General Neurology, Missy Hirsch PA-C ASSESSMENT ASSESSMENT/PLAN: 1. Worsening headaches - ICD9: 784.0, ICD10: R51.9 (primary diagnosis) 2. Disorder of labyrinth, unspecified laterality - ICD9: 386.9, ICD10: H81.90 3. Intractable chronic migraine with aura and without status migrainosus - ICD9: 346.01, ICD10: G43.E19 Patient with 6 months of progressively worsening episodes of head pressure to the top of the head, nausea, photophobia, phonophobia and dizziness. Has difficulty describing episodes of dizziness. Initially was concerned that there was a BPPV component, was given meclizine without any improvement. Notes that they are getting more frequent and worse in intensity, last anywhere from a few hours for a few days, not aborted with Tylenol. Reports a long history of migraines and notes last migraine was a week ago, these were more mild headaches with associated photophobia, phonophobia and nausea butwell aborted with Tylenol. CRP and ESR were negative, patient with any vision loss, jaw claudication. While this was occurring she did have 1 fall a few months ago, lives alone and woke up on the floor called her daughter. She was taken to the emergency room and found to be very hypertensive, CT ofthe brain was negative at that time. At this time, believe patient is experiencing migraines, but due to worsening headaches and new headache onset in a patient of age of 48 will order MRI of the brain. Will treat as migraine, discussed preventatives and patient is currently on gabapentin, carvedilol and losartan, Paxil. Will try Qulipta 60 mg take daily for prevention of migraines. Discussed if this is not effective may consider an injectable. For abortive relief, due to concern of possible stroke we will avoid any triptans at this time. Discussed Nurtec and patient is amenable. Encouraged conservative therapy as well. Patient and daughter agreeable to treatment plan of care at this time, questions were answered. Patient to follow-up in 3 months or sooner should any symptoms change or worsen. iMssy Hirsch PA-C Encounter Diagnosis ICD-10-CM 1. Worsening headaches R51.9 MRI BRAIN WO/W IVCON 2. Disorder of labyrinth, unspecified laterality H81.90 3. Intractable chronic migraine with aura and without status migrainosus G43.E19 atogepant (QULIPTA) 60 mg tablet rimegepant (NURTEC ODT) 75 mg disintegrating tablet Chart, labs,and relevant images reviewed. HPI: Patient experiencing dizzziness and visoin changes. Was on prednisone with some help. Saw ophtho on07/14/24 Patient states she has also having new onset headaches and hearing noises in her head. Patient is scheduled with Neurology on 07/27/2024. Patient complains of intermitted diplopia, but states it does not last long. Patient is also experiencing dizziness and a scratching noise in her ears. Saw [facility] in 2022 for daily headache. Was put on gabapentin for headaches, did not follow up. Lisa is a 78 year old year old female with history of who presents with dizziness. The dizzinessis described as lightheadedness and sensation of movement. Patient presents for evaluation of multiple neurologic concerns. Notes that about 6 months she has been getting episodic episodes of dizziness with headache, nausea, photophobia and phonophobia. Lasting anywhere from a few hours to the days. Has a chronic history of migraines which are also occurring as well but not nearly as frequently as these other episodes. Notes that she will typically startexperiencing a scratching noise in her ears that occurs on the top of her head bilaterally followedby pressure of the top of her head as well as blurred vision bilaterally. She would then get nauseous and then go lay down in a dark quiet room. Tried taking Tylenol with no benefit. No triggers thatshe can think of, maybe happens more when she is fatigued. No etiology for symptoms that she can think of including medication change, head or neck injury, life change or stressor. Tried meclizine without any benefit. Was told the ringing in her years was tinnitus, but states that she has had tinnitus chronically and this is not the same. Notes that these happen about 2 or 3 times a week and seem to be getting worse in both frequency and intensity over the last month or so. No vomiting. Notes that she also feels subjectively weak throughout when it happens. Notes that a typical migraine, which occurs about once a month or last, feels like a pressure sensation to the top of the head with associated photophobia, phonophobia and very mild nausea. Usually well aborted with Tylenol and again very infrequent with no known triggers. Has had these chronicallyfor many years. Notes that with one of the episodes she may have had a fall from it. Patient lives alone but calledher daughter when she woke up on the floor, unsure if she passed out or not. Does have history of orthostatic hypotension and neuropathy in her lower extremities. Patient does not remember much aboutthis incident. Was taken to the hospital where CT of the brain was obtained, she was admitted because she was found to have very high blood pressure at the time. Notes that she has been having episodes of blurred vision with without a headache as well, describes a bilateral tunnel vision where the peripherals are blurred lasting for an hour, comes and goes. Notes that she tries taking on and off her glasses but does not seem to help. Notes that it comes on randomly and there is nothing she can do. Prior headache medicines: Carvedilol Gabapentin- neuropathy Losartan Paxil TPM- kidney stones Review of Systems ACTIVE PROBLEM LIST Essential Hypertension Generalized Osteoarthrosis, Unspecified Site Hyperlipidemia, Unspecified Body Mass Index (Bmi) 40.0-44.9, Adult (Hcc) Other Specified Idiopathic Peripheral Neuropathy Allergic Rhinitis Nontoxic Multinodular Goiter Anxiety With Depression Mixed Incontinence Urge and Stress Tinnitus of Both Ears Ocular Hypertension, Bilateral Optic Disc Cupping Combined Forms of Age-Related Cataract of Both Eyes Dry Eye Syndrome Vitreous Floaters of Both Eyes Meibomian Gland Dysfunction (Mgd) 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 Spinal Stenosis, Lumbar Region, With Neurogenic Claudication Essential Tremor Christian[place] (Obstructive Sleep Apnea) Spondylosis of Lumbar Region Without Myelopathy Or Radiculopathy History of Dvt (Deep Vein Thrombosis) Non-Rheumatic Tricuspid Valve Insufficiency Bilateral Carotid Artery Stenosis Chronic Migraine Without Aura, With Intractable Migraine, So Stated, With Status Migrainosus Difficult Airway Hypothyroid 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) Gerd (Gastroesophageal Reflux Disease) Ckd (Chronic Kidney Disease) Thrombocytopenia, Secondary Degeneration of Lumbar Intervertebral Disc Diarrhea History of Cholecystectomy Skilled Nursing Current Use of Anticoagulant Therapy Migraine Headache Osteoarthritis Chronic Respiratory Failure With Hypoxia (Hcc) Acute Deep Vein Thrombosis (Dvt) of Both Lower Extremities, Unspecified Vein (Hcc) Other Primary Thrombophilia (Hcc) PAST MEDICAL HISTORY Diagnosis Date ANXIETY STATE NOS 06/07/2005 Arthritis Cancer (HCC) Carpal tunnel syndrome 06/07/2005 Cholelithiasis 06/17/2012 DEPRESSIVE DISORDER NEC 06/07/2005 Diverticulosis of colon (without mention of hemorrhage) Dizziness and giddiness 02/26/2010 GENERAL OSTEOARTHROSIS 06/07/2005 Goiter, unspecified 12/11/2010 Headache(784.0) 02/26/2010 Chronic. 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 Ramírez, severe Medications: Reviewed meclizine (ANTIVERT) 25 mg tab Take 1 tablet by mouth three times a day as needed. losartan (COZAAR) 100 mg tablet Take 1 tablet by mouth once daily. apixaban (ELIQUIS) 5 mg tab(s) Take 1 tablet by mouth two times a day. gabapentin (NEURONTIN) 400 mg capsule Take 1 capsule by mouth two times a day for 180 days. levothyroxine (SYNTHROID) 75 mcg tablet Take 1 tablet by mouth daily before breakfast. EPINEPHrine (EPIPEN) 0.3 mg/0.3 mL auto-injector Use as directed potassium chloride (K-TAB) 10 mEq tablet Take 1 tablet by mouth two times a day. hydrALAZINE (APRESOLINE) 50 mg tablet Take 1 tablet by mouth three times a day. carvedilol (COREG) 25 mg tablet Take 1 tablet by mouth two times a day. omeprazole (PRILOSEC) 20 mg capsule Take 1 capsule by mouth once daily. PARoxetine (PAXIL) 10 mg tablet Take 1 tablet by mouth once daily. OTC PRODUCT Super Snooze with Melatonin: Take one capsule by mouth at bedtime as needed. acetaminophen 650 mg CR tablet Take 650 mg by mouth every 8 hours as needed. multivitamin/iron/folic acid (CENTRUM ULTRA WOMEN'S ORAL) Take 1 tablet by mouth once daily. iv contrast (will be provided with radiology test) MRI Brain Inject, intravenously, once for 1 dose.No IV access, insert saline lock prior to beginning of sedation, infusion, injection of imaging exam.Discontinue saline lock post exam. If Pt. has a central line or IVAD, may access for administration according to line specific nursing protocol.Once exam is complete flush line and de-access according to line specific nursing protocol in the MR contrast administration guidelines link atogepant (QULIPTA) 60 mg tablet Take 1 tablet (60 mg) by mouth once daily. rimegepant (NURTEC ODT) 75 mg disintegrating tablet Take 1 tablet by mouth once daily as needed. psyllium husk (KONSYL) 6 gram pwpk packet Take 1 Packet by mouth two times a day. [DISCONTINUED] hydrALAZINE (APRESOLINE) 25 mg tablet Take 2 tablets by mouth twice daily. ALLERGIES Allergen Reactions Covid-19 Vaccine, M* Anaphylaxis Adhesive Rash Blisters and dermatitis from op site dressing and tape Erythromycin Rash, GI Upset Urticarial rash, seen in [place] ER Latex Swelling Lisinopril Swelling Nafcillin Itching 06/29/21 negative penicillin skin testing. Passed oral amoxicillin challenge. Nifedipine Rash Norvasc [Amlodipine* Swelling Wasps Mental Status Change, Rash FAMILY HISTORY Problem Relation Age of Onset Heart Mother Cancer Mother lung Heart Father other (Other) Father Heart Brother [place], aneurysm Migraines Daughter Macular Degen Maternal Aunt PAST SURGICAL HISTORY Procedure Laterality Date ABDOMINAL SURGERY HX ARTHRP KNE CONDYLE&PLATU MEDIAL&LAT COMPARTMENTS February2010 Knee replacement, total, Left ARTHRP KNE CONDYLE&PLATU MEDIAL&LAT COMPARTMENTS 07/2010 Knee replacement, total, Right BACK SURGERY HX COLONOSCOPY FLX DX W/COLLJ SPEC WHEN PFRMD 06/05/2011 Colonoscopy COLONOSCOPY FLX DX W/COLLJ SPEC WHEN PFRMD N/A 12/04/2016 ESOPHAGOGASTRODUODENOSCOPY TRANSORAL DIAGNOSTIC N/A 12/04/2016 [employer] FILTER 2018 INSJ TUNNELED CTR VAD W/SUBQ PORT AGE 3 YR/> 06/05/2022 JOINT REPLACEMENT HX L'SCOPE CHOLECYSTECTOMY 07/30/2022 Dr Gonzalez NEPHRECTOMY PARTIAL 1986 Nephrectomy, partial left (benign) PAST SURGICAL HISTORY OF 06/2018 lumbar burger with wound infection TONSILLECTOMY HX TOTAL ABDOMINAL HYSTERECT W/WO RMVL TUBE OVARY 1985 Hysterectomy, NEISHA VAGINAL HYSTERECTOMY SOCIAL HISTORY No social history on file. Tobacco Use: Low Risk (07/27/2024) Patient History Smoking Tobacco Use: Never Smokeless Tobacco Use: Never Passive Exposure: Not on file PHYSICAL EXAM 07/27/24 1226 BP: 146/86 Pulse: 78 Resp: 14 SpO2: 94% Weight: 109 kg (240 lb 4.8 oz) Neurological Exam Cognitive and Language: Alert and answered questions appropriately. Language was fluent. Followed simple and complex commands. Cranial Nerves: Visual georges were full tested binocularly to finger counting in all 4 quadrants with no visual extinction. Pupils were equal and both reactive to light. Extraocular movements were full with no diplopia or nystagmus. Facial sensation was normal to light touch in V1 to V3. Facial strength was symmetric. Normal hearing grossly bilaterally. Palatal raise was symmetric. Shoulder shrug was symmetric. Tongue protrusion was symmetric with no fasciculations. Right Left Shoulder Abduction: 5 5 Elbow Extension 5 5 Elbow Flexion 5 5 Wrist Extension 5 5 Finger Extension 5 5 Finger Abduction 5 5 Slight decrease in manual arts therapy teacher strength bilaterally at 4+/5. Right Left Hip Flexion 5 5 Knee Extension 5 5 Knee Flexion 5 5 Dorsiflexion 5 5 Plantar Flexion 5 5 Rest tremor: Slight resting tremor of the left thumb Tone: Normal in all four limbs Reflexes: 2/4 at the bilateral upper extremities, absent reflexes to the lower extremities Sensory: normal to light touch in all 4 extremities. Intact temperature to the lower extremities and upper extremities. Absent vibration sense to the bilateral lower extremities. Coordination: Normal finger to nose and heel to sevilla testing bilaterally. Ambulates with a rollator, stooped over Labs: Lab Results Component Value Date WBC 5.80 04/02/2024 HCT 39.5 04/02/2024 MCV 98.0 04/02/2024 PLT 144 (L) 04/02/2024 Lab Results Component Value Date HBA1C 5.6 11/24/2018 HBA1C 5.5 06/10/2007 Cholesterol, Total Date Value Ref Range Status 03/19/2021 171 <200 mg/dL Final Comment: <200 mg/dL, Desirable 200-239 mg/dL, Borderline high >239 mg/dL, High HDL Cholesterol Date Value Ref Range Status 03/19/2021 31 (L) >39 mg/dL Final Comment: 40-59 mg/dL, Acceptable >59 mg/dL, High: Negative risk factor for coronary heart disease <40 mg/dL, Low: Positive risk factor for coronary heart disease LDL Cholesterol Date Value Ref Range Status 03/19/2021 109 (H) <100 mg/dL Final Comment: <100 mg/dL, Optimal 100-129 mg/dL, Near optimal/above optimal 130-159 mg/dL, Borderline high 160-189 mg/dL, High >189 mg/dL, Very high Secondary prevention optimal LDL Cholesterol levels are recommended to be < 70 mg/dL Triglyceride Date Value Ref Range Status 05/22/2021 231 (H) <150 mg/dL Final Comment: <150 mg/dL, Normal 150-199 mg/dL, Borderline high 200-499 mg/dL, High >499 mg/dL, Very high Reference: 1. National Cholesterol Education Program ATP III Guideline At-A-Glance Quick Desk Reference: National Heart, Lung, and Blood [place]. National Institutes of Health. 2001: NIH Publication No. 01-3305. Lab Results Component Value Date TSH 1.180 03/15/2024 TSH 2.030 07/07/2021 Radiology: MRI Head/Brain - Last 2 Impressions MRI BRAIN WO IVCON Collected: 10/17/2017 9:31 AM (Final result) Impression: IMPRESSION: No acute intracranial process. Unremarkable examination. ... , MRI Cervical Spine - Last 2 Impressions No resulted procedures found. , CT Head/Brain - Last [address] BRAIN WO IVCON Exam End: 10/22/2019 1:21 PM (Final result) Impression: IMPRESSION: No acute intracranial abnormality. Specifically no acute hemorrhage. Software Engineer Backend: IVAN Transcribe Date/Time: Oct 22 2019 1:28P Dictated by : ALYSHA LANDRUM MD This examination was interpreted and the report reviewed and electronically signed by: ALYSHA LANDRUM MD on Oct 22 2019 1:31PM EST CT BRAIN WO IVCON Exam End: 05/02/2019 5:07 AM (Final result) Impression: IMPRESSION: There is possibly hyperdense vessel in the right MCA distribution in the sylvian fissure, which could represent thrombosis. Correlation with CTA can be obtained if clinically indicated. No acute brain changes or acute hemorrhage. Discussed with Dr. Salinas at 5:21. Software Engineer Backend: IVAN Transcribe Date/Time: May 02 2019 5:10A Dictated by : DIONY SOMERS MD This examination was interpreted and the report reviewed and electronically signed by: DIONY SOMERS MD on May 02 2019 5:22AM EST , and CTA Head and/or Neck - Last 2 CTA HEAD W IVCON Exam End: 05/02/2019 6:04 AM (Final result) Impression: IMPRESSION: No intracranial branch occlusion or significant stenosis. Software Engineer Backend: IVAN Transcribe Date/Time: May 02 2019 6:07A Dictated by : DIONY SOMERS MD This examination was interpreted and the report reviewed and electronically signed by: DIONY SOMERS MD on May 02 2019 6:13AM EST This note was dictated using Mailsuite speech recognition software and may contain some errors that were a result of the program not accurately transcribing what was dictated, despite efforts to make corrections. Note that unless urgent, test and MRI results will be discussed at next follow- up visit. PROMIS (Patient-Reported Outcomes Measurement Information System) is a set of person-centered measures that evaluates and monitors physical, social, and emotional health. It can be used with the general population and with individuals living with chronic conditions. PROMIS 10: PHYSICAL AND MENTAL HEALTH: 12/13/2023 PHQ-9 PHQ-2 Score 0 Medical Decision Making: Medical Decision Making Level: 1 - N/A I spent a total of 60 minutes on the date of the service which included preparing to see the patient, [id number] patient care, completing clinical documentation, obtaining and/or reviewing separately obtained history, performing a medically appropriate examination, counseling and educating the pat ient/family/caregiver, and ordering medications, tests, or procedures. documented in this encounterAcmc Healthcare System10-23-2024 Instructions* Patient Instructions* Franklyn Juares MD - 07/14/2024 9:23 AM EDT If you have any questions please contact our office at [phone]. After office hours or on the weekend, please call Dr. Juares on his cell phone at [phone]. documented in this encounterAcmc Healthcare System10-23-2024 History of Present illness Narrative* Franklyn Juares MD - 07/14/2024 8:44 AM EDT ASSESSMENT/PLAN: 1. Combined forms of age-related cataract of both eyes - ICD9: 366.19, ICD10: H25.813 (primary diagnosis) Recommended patient see Dr. Hollins for refraction and glasses. 2. Other headache syndrome - ICD9: 339.89, ICD10: G44.[address] on 07/04/2024 at the ED and it was negative. Patient is scheduled to see Neurology on 07/27/2024. 3. Ocular hypertension, bilateral - ICD9: 365.04, ICD10: H40.053 Family history of Glaucoma: Aunt Monitor 4. Optic cupping of both eyes - ICD9: 377.14, ICD10: H47.233 Monitor 5. Essential hypertension - ICD9: 401.9, ICD10: I10 Continue to monitor with primary care physician. 6. Sleep apnea, unspecified type - ICD9: 780.57, ICD10: G47.30 Continue to monitor with primary care physician. Patient states she is not using her C-PAP. 7. Hypothyroidism, unspecified type - ICD9: 244.9, ICD10: E03.9 Continue to monitor with primary care physician. 8. History of blood clots - ICD9: V12.51, ICD10: Z86.718 Continue to monitor with primary care physician. 9. Anxiety with depression - ICD9: 300.4, ICD10: F41.8 Continue to monitor with primary care physician. I have confirmed and edited as necessary the relevant HPI, ophthalmic history, ROS, and the neuro exam findings as obtained by others. I have seen and examined Lisa Up. I have discussed the case and the management of this patient's care with the Resident/Fellow, if applicable. I also have reviewed and agree with the assessment and plan as stated above and agree withall of its relevant components. documented in this encounterAcmc Healthcare System10-18-2024 History of Present illness Narrative* Rose Marie Myers RT(R) - 07/09/2024 11:30 AM EDT Radiology Service Progress Note PATIENT NAME: Lisa Up DATE OF SERVICE: July 09, 2024 TIME: 11:16 AM PATIENT IDENTITY VERIFICATION COMPLETED USING TWO (2) IDENTIFIERS: Name and Date of confirmedby patient verbally. FALL SCREENING: Has the patient had 2 falls in the last year or 1 fall with injury or currently using an Ambulatory Assistive Device (Walker, Cane, Wheelchair, Crutches, etc.)? Yes, Patient High Riskfor Falls What interventions were put in place to prevent falls during this visit? Instructed Patient to Callfor Help if Needed, Offered Assistance with Transfers/Clothing, Instructed Patient to Remain Seated(Not on Exam Table) Until Exam, and Increased Observations by Caregivers PATIENT GENDER DATA: Female. status: : No status: NO. PATIENT RELEVANT IMPLANT DATA REVIEWED: Yes PATIENT PRESENTS WITH AN IMPLANTABLE OR ATTACHED COLLECTIVE BARGAINING SPECIALIST: No RADIOLOGY DEPARTMENT: Mammography PERIPHERAL IV DATA: Not applicable SIGNED BY: RT Sharla(R) July 09, 2024 11:16 AM documented in this encounterAcmc Healthcare System10-15-2024 Instructions* Patient Instructions* Judith Pickard APRN.CNP - 07/06/2024 3:18 PM EDT 1) Keep follow up with me in November, cancel 2 week 2) Continue meclizine 2 x day 3) Consult neurology for dizziness 4) Ear wax kit given documented in this encounterAcmc Healthcare System10-15-2024 History of Present illness Narrative* Judith Pickard APRN.CNP - 07/06/2024 2:56 PM EDT This is a 78 year old female who presents today with: Patient presents with: ER F/U: [facility] 07/04/24 Hypertention HISTORY OF PRESENT ILLNESS: Lisa Up is a 78 year old female. Patient presents with: ER F/U: [facility] 07/04/24 Hypertention Two days after starting prednisone, she became very flushed. No chest pain or dyspnea. Went to [facility] ER and they did complete work-up including CT head- no acute finding (small vessel changes) They treated BP and took her off prednisone. ER WBC 9.5, H&H 12.6/40, plt 149 BUN 15, creat 0.82, Na 141, K+ 3.6 Trop 6 HTN: Patient is compliant with meds Yes Monitors bp at home: Yes. Denies side effects: No. Chest pain: No. Dyspnea: No. Edema: Denies Palpitations: No. Syncope: No. Headache: No. Dizziness: Coming back- prednisone helped/ PAST MEDICAL HISTORY: PAST MEDICAL HISTORY Diagnosis Date ANXIETY STATE NOS 06/07/2005 Arthritis Cancer (HCC) Carpal tunnel syndrome 06/07/2005 Cholelithiasis 06/17/2012 DEPRESSIVE DISORDER NEC 06/07/2005 Diverticulosis of colon (without mention of hemorrhage) Dizziness and giddiness 02/26/2010 GENERAL OSTEOARTHROSIS 06/07/2005 Goiter, unspecified 12/11/2010 Headache(784.0) 02/26/2010 Chronic. 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 Ramírez, severe PAST SURGICAL HISTORY Procedure Laterality Date ABDOMINAL SURGERY HX ARTHRP KNE CONDYLE&PLATU MEDIAL&LAT COMPARTMENTS February2010 Knee replacement, total, Left ARTHRP KNE CONDYLE&PLATU MEDIAL&LAT COMPARTMENTS 07/2010 Knee replacement, total, Right BACK SURGERY HX COLONOSCOPY FLX DX W/COLLJ SPEC WHEN PFRMD 06/05/2011 Colonoscopy COLONOSCOPY FLX DX W/COLLJ SPEC WHEN PFRMD N/A 12/04/2016 ESOPHAGOGASTRODUODENOSCOPY TRANSORAL DIAGNOSTIC N/A 12/04/2016 DEVORA FILTER 2018 INSJ TUNNELED CTR VAD W/SUBQ PORT AGE 5 YR/> 06/05/2022 JOINT REPLACEMENT HX L'SCOPE CHOLECYSTECTOMY 07/30/2022 Dr Gonzalez NEPHRECTOMY PARTIAL 1986 Nephrectomy, partial left (benign) PAST SURGICAL HISTORY OF 06/2018 lumbar burger with wound infection TONSILLECTOMY HX TOTAL ABDOMINAL HYSTERECT W/WO RMVL TUBE OVARY 1986 Hysterectomy, NEISHA VAGINAL HYSTERECTOMY ALLERGIES Covid-19 Vaccine, Mrna, [id number], Lnp-S (Moderna); Adhesive; Erythromycin; Latex; Lisinopril; Nafcillin; Nifedipine; Norvasc [Amlodipine Besylate]; and Wasps MEDICATIONS Current Outpatient Medications Medication Sig meclizine (ANTIVERT) 25 mg tab Take 1 tablet by mouth three times a day as needed. amoxicillin-clavulanate potassium (AUGMENTIN) 875-125 mg per tablet Take 1 tablet by mouth two times a day for 10 days. losartan (COZAAR) 100 mg tablet Take 1 tablet by mouth once daily. apixaban (ELIQUIS) 5 mg tab(s) Take 1 tablet by mouth two times a day. gabapentin (NEURONTIN) 400 mg capsule Take 1 capsule by mouth two times a day for 180 days. levothyroxine (SYNTHROID) 75 mcg tablet Take 1 tablet by mouth daily before breakfast. EPINEPHrine (EPIPEN) 0.3 mg/0.3 mL auto-injector Use as directed potassium chloride (K-TAB) 10 mEq tablet Take 1 tablet by mouth two times a day. hydrALAZINE (APRESOLINE) 50 mg tablet Take 1 tablet by mouth three times a day. carvedilol (COREG) 25 mg tablet Take 1 tablet by mouth two times a day. omeprazole (PRILOSEC) 20 mg capsule Take 1 capsule by mouth once daily. PARoxetine (PAXIL) 10 mg tablet Take 1 tablet by mouth once daily. psyllium husk (KONSYL) 6 gram pwpk packet Take 1 Packet by mouth two times a day. OTC PRODUCT Super Snooze with Melatonin: Take one capsule by mouth at bedtime as needed. acetaminophen 650 mg CR tablet Take 650 mg by mouth every 8 hours as needed. multivitamin/iron/folic acid (CENTRUM ULTRA WOMEN'S ORAL) Take 1 tablet by mouth once daily. predniSONE (DELTASONE) 10 mg tablet Take 40 mg x 3 days, 20 mg x 3 days, 10 mg x 3 days. Take with food, once daily (Patient not taking: Reported on 07/06/2024) No current facility-administered medications for this visit. FAMILY HISTORY Problem Relation Age of Onset Heart Mother Cancer Mother lung Heart Father other (Other) Father Heart Brother [place], aneurysm Migraines Daughter Macular Degen Maternal Aunt Social History Tobacco Use Smoking status: Never Smokeless tobacco: Never Vaping Use Vaping status: Never Used Substance Use Topics Alcohol use: No Drug use: No EXAM: BP 152/70 Pulse 68 Wt 107.2 kg (236 lb 5.3 oz) SpO2 100% BMI 41.86 kg/m PHYSICAL EXAM: Physical Exam Vitals reviewed. Constitutional: Appearance: Normal appearance. She is obese. HENT: Head: Normocephalic. Right Ear: Ear canal and external ear normal. There is impacted cerumen. Left Ear: Ear canal and external ear normal. There is impacted cerumen. Nose: Congestion and rhinorrhea present. Cardiovascular: Rate and Rhythm: Normal rate and regular rhythm. Pulses: Normal pulses. Heart sounds: Normal heart sounds. Pulmonary: Effort: Pulmonary effort is normal. Breath sounds: Normal breath sounds. Abdominal: General: Bowel sounds are normal. Palpations: Abdomen is soft. Musculoskeletal: Comments: Generalized weakness, uses rollator Skin: General: Skin is warm and dry. Neurological: Mental Status: She is alert and oriented to person, place, and time. Comments: Lightheaded, dizziness returning with stopping prednisone Psychiatric: Mood and Affect: Mood normal. Behavior: Behavior normal. LABS: ASSESSMENT/PLAN: 1. Disorder of labyrinth, unspecified laterality - ICD9: 386.9, ICD10: H81.90 (primary diagnosis) Ongoing- improved with prednisone but unable to tolerate with blood pressure 2. Essential hypertension - ICD9: 401.9, ICD10: I10 - Controlled - Recommend home blood pressure monitoring, to bring results to next visit - Encouraged sodium restriction, DASH or Mediterranean diet - Recommend regular aerobic exercise - ER doctor wanted a plan if blood pressure is high rather than going to ER- would have pt. Add extra hydralazine 50 mg and wait 30 min. For blood pressure >170/ >95. Only taking it 2 x day 3. Impacted cerumen, unspecified laterality - ICD9: 380.4, ICD10: H61.20 Ear flush kit given 4. Dizziness - ICD9: 780.4, ICD10: R42 Taking meclizine and it is helping - Consult neurology Discussed treatment plan and patient voices understanding. Patient's questions answered appropriately. Medications and potential side effects were discussed and patient voices understanding. Return to the office as scheduled or as needed for worsening/no improvement. Judith Pickard APRN.CRISIS COUNSELOR documented in this encounterAcmc Healthcare System10-13-2024 Telephone encounter Note * Telephone Encounter - Layla Malave RN - 07/04/2024 3:10 AM EDT Reason for Call: HTN and KNIGHT per patient KNIGHT has been present throughout the night started at 2100 and is radiating to the back of the neck Patient states that she took a extra blood pressure pill. During triage blood pressure is 182/106 Outcome: GO TO THE ED NOW Reason for Disposition [1] Systolic BP >= 160 OR Diastolic >= 100 AND [2] cardiac (e.g., breathing difficulty, chestpain) or neurologic symptoms (e.g., new-onset blurred or double vision, unsteady gait) Protocols used: Blood Pressure - [id number] [facility]10-13-2024 Miscellaneous Notes* Telephone Encounter - Layla Malave RN - 07/04/2024 3:10 AM EDT Reason for Call: HTN and KNIGHT per patient KNIGHT has been present throughout the night started at 2100 and is radiating to the back of the neck Patient states that she took a extra blood pressure pill. During triage blood pressure is 182/106 Outcome: GO TO THE ED NOW Reason for Disposition [1] Systolic BP >= 160 OR Diastolic >= 100 AND [2] cardiac (e.g., breathing difficulty, chestpain) or neurologic symptoms (e.g., new-onset blurred or double vision, unsteady gait) Protocols used: Blood Pressure - [id number] documented in this encounterAcmc Healthcare System10-11-2024 Instructions* Patient Instructions* Judith Pickard APRN.CNP - 07/02/2024 12:02 PM EDT 1) Please try to move up appt. With glove finisher. 2) Augmentin 2 x day for 10 days 3) Prednisone taper- follow instruction 4) Meclizine 25 mg up to 3 x day but at least 2 x day until dizziness is better 5) Follow up in 2 weeks documented in this encounterAcmc Healthcare System10-11-2024 History of Present illness Narrative* Judith Pickard APRN.CNP - 07/02/2024 11:57 AM EDT This is a 78 year old female who presents today with: Patient presents with: Hypertension HISTORY OF PRESENT ILLNESS: Lisa Up is a 78 year old female. Patient presents with: Hypertension Pressure headache Feels like she is in a fog Hearing noises in head (present for years) Left eye red & itchy (since last night) Vision double- foggy area in vision both eyes in last month Cramping in neck (plays a lot of solitaire) Dizzy Body aches- no change Chills now and then PAST MEDICAL HISTORY: PAST MEDICAL HISTORY Diagnosis Date ANXIETY STATE NOS 06/07/2005 Arthritis Cancer (HCC) Carpal tunnel syndrome 06/07/2005 Cholelithiasis 06/17/2012 DEPRESSIVE DISORDER NEC 06/07/2005 Diverticulosis of colon (without mention of hemorrhage) Dizziness and giddiness 02/26/2010 GENERAL OSTEOARTHROSIS 06/07/2005 Goiter, unspecified 12/11/2010 Headache(784.0) 02/26/2010 Chronic. 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 Ramírez, severe PAST SURGICAL HISTORY Procedure Laterality Date ABDOMINAL SURGERY HX ARTHRP KNE CONDYLE&PLATU MEDIAL&LAT COMPARTMENTS February2010 Knee replacement, total, Left ARTHRP KNE CONDYLE&PLATU MEDIAL&LAT COMPARTMENTS 07/2010 Knee replacement, total, Right BACK SURGERY HX COLONOSCOPY FLX DX W/COLLJ SPEC WHEN PFRMD 06/05/2011 Colonoscopy COLONOSCOPY FLX DX W/COLLJ SPEC WHEN PFRMD N/A 12/04/2016 ESOPHAGOGASTRODUODENOSCOPY TRANSORAL DIAGNOSTIC N/A 12/04/2016 DEVORA FILTER 2019 INSJ TUNNELED CTR VAD W/SUBQ PORT AGE 5 YR/> 06/05/2022 JOINT REPLACEMENT HX L'SCOPE CHOLECYSTECTOMY 07/30/2022 Dr Gonzalez NEPHRECTOMY PARTIAL 1986 Nephrectomy, partial left (benign) PAST SURGICAL HISTORY OF 06/2018 lumbar burger with wound infection TONSILLECTOMY HX TOTAL ABDOMINAL HYSTERECT W/WO RMVL TUBE OVARY 1986 Hysterectomy, NEISHA VAGINAL HYSTERECTOMY ALLERGIES Covid-19 Vaccine, Mrna, [id number], Lnp-S (Moderna); Adhesive; Erythromycin; Latex; Lisinopril; Nafcillin; Nifedipine; Norvasc [Amlodipine Besylate]; and Wasps MEDICATIONS Current Outpatient Medications Medication Sig losartan (COZAAR) 100 mg tablet Take 1 tablet by mouth once daily. apixaban (ELIQUIS) 5 mg tab(s) Take 1 tablet by mouth two times a day. gabapentin (NEURONTIN) 400 mg capsule Take 1 capsule by mouth two times a day for 180 days. levothyroxine (SYNTHROID) 75 mcg tablet Take 1 tablet by mouth daily before breakfast. EPINEPHrine (EPIPEN) 0.3 mg/0.3 mL auto-injector Use as directed potassium chloride (K-TAB) 10 mEq tablet Take 1 tablet by mouth two times a day. hydrALAZINE (APRESOLINE) 50 mg tablet Take 1 tablet by mouth three times a day. carvedilol (COREG) 25 mg tablet Take 1 tablet by mouth two times a day. omeprazole (PRILOSEC) 20 mg capsule Take 1 capsule by mouth once daily. PARoxetine (PAXIL) 10 mg tablet Take 1 tablet by mouth once daily. psyllium husk (KONSYL) 6 gram pwpk packet Take 1 Packet by mouth two times a day. acetaminophen 650 mg CR tablet Take 650 mg by mouth every 8 hours as needed. multivitamin/iron/folic acid (CENTRUM ULTRA WOMEN'S ORAL) Take 1 tablet by mouth once daily. OTC PRODUCT Super Snooze with Melatonin: Take one capsule by mouth at bedtime as needed. No current facility-administered medications for this visit. FAMILY HISTORY Problem Relation Age of Onset Heart Mother Cancer Mother lung Heart Father other (Other) Father Heart Brother [place], aneurysm Migraines Daughter Macular Degen Maternal Aunt Social History Tobacco Use Smoking status: Never Smokeless tobacco: Never Vaping Use Vaping status: Never Used Substance Use Topics Alcohol use: No Drug use: No EXAM: BP 124/71 Pulse 71 Wt 106.6 kg (235 lb) SpO2 99% BMI 41.63 kg/m PHYSICAL EXAM: Physical Exam Vitals reviewed. Constitutional: Appearance: Normal appearance. She is obese. HENT: Head: Normocephalic. Comments: Canals inflamed- unable to see tympanic membrane Right Ear: External ear normal. There is no impacted cerumen. Left Ear: External ear normal. There is impacted cerumen. Nose: Congestion and rhinorrhea present. Mouth/Throat: Pharynx: Oropharyngeal exudate and posterior oropharyngeal erythema present. Cardiovascular: Rate and Rhythm: Normal rate and regular rhythm. Pulses: Normal pulses. Heart sounds: Normal heart sounds. Pulmonary: Effort: Pulmonary effort is normal. Breath sounds: Normal breath sounds. Abdominal: Palpations: Abdomen is soft. Musculoskeletal: Comments: Generalized weakness Skin: General: Skin is warm and dry. Neurological: Mental Status: She is alert and oriented to person, place, and time. Comments: Cranial nerves III- XII intact, + nystagmus No [id number] ataxia Generalized weakness Psychiatric: Comments: Poor judgement, overwhelmed, feeling poorly CT of brain 05/08 showed involutional changes ASSESSMENT/PLAN: 1. Vision changes - ICD9: 368.9, ICD10: H53.9 (primary diagnosis) Concern about changes - CONSULT TO OPHTHALMOLOGY 2. Disorder of labyrinth, unspecified laterality - ICD9: 386.9, ICD10: H81.90 Will treat with meclizine and steroid taper 3. Acute frontal sinusitis, recurrence not specified - ICD9: 461.1, ICD10: J01.10 - Will begin treatment with Augmentin 875 mg PO BID for 10 days Discussed treatment plan and patient voices understanding. Patient's questions answered appropriately. Medications and potential side effects were discussed and patient voices understanding. Return to the office as scheduled or as needed for worsening/no improvement. Judith Pickard APRN.LEONCIO documented in this encounterAcmc Healthcare System10-10-2024 Telephone encounter Note * Telephone Encounter - Tima Benavides RN - 07/01/2024 8:49 AM EDT Pt called and is notified of providers results and instructions. Pt voices understanding. Tima Benavides RN [facility]10-10-[facility] Miscellaneous Notes* Telephone Encounter - Tima Benavides RN - 07/01/2024 8:49 AM EDT Pt called and is notified of providers results and instructions. Pt voices understanding. Tima Benavides RN * Telephone Encounter - Judith Pickard APRN.CNP - 07/01/2024 7:57 AM EDT Have her increase losartan to 100 mg daily (can take 2 of the 50 mg until her appt.. * Telephone Encounter - Kimberly Obregon LPN - 06/30/2024 2:55 PM EDT Pt called in reporting hearing noises/different the ringing in the ears. She gets dull headaches, BP goes up and down, Top of her head is sore. She will see double off and on. This has all been goingon noise in head x years and told tinnitus and getting worse. Pt not certain who she would need to see regarding all this. Has a dull headache all the time. BP she just took 156/103 @ 2:59 pm .Pt repeating this @ 3:05 pm 156/86 Pt reports pressure in eyes. Pt on Losartan daily. DENIES: chest pain,SOB, leg swelling, heart palpitations. no blurred vision. Pt scheduled for an apt in office 07/02/24. Requesting provider she is scheduled with. Kimberly Obregon LPN documented in this encounterA[facility]10-10-2024 Telephone encounter Note * Telephone Encounter - Judith Pickard APRN.CNP - 07/01/2024 7:57 AM EDT Have her increase losartan to 100 mg daily (can take 2 of the 50 mg until her appt.. [facility]10-[facility] Telephone encounter Note* Telephone Encounter - Kimberly Obregon LPN - 06/30/2024 2:55 PM EDT Pt called in reporting hearing noises/different the ringing in the ears. She gets dull headaches, BP goes up and down, Top of her head is sore. She will see double off and on. This has all been goingon noise in head x years and told tinnitus and getting worse. Pt not certain who she would need to see regarding all this. Has a dull headache all the time. BP she just took 156/103 @ 2:59 pm .Pt repeating this @ 3:05 pm 156/86 Pt reports pressure in eyes. Pt on Losartan daily. DENIES: chest pain,SOB, leg swelling, heart palpitations. no blurred vision. Pt scheduled for an apt in office 07/02/24. Requesting provider she is scheduled with. Kimberly Obregon LPN [facility]09-26-2024 Note* Addendum Note - Judith Pickard APRN.CNP - 06/17/2024 12:20 PM EDTAddended by: JUDITH PICKARD on: 06/17/2024 12:20 PM Modules accepted: Orders [facility]09-26-2024 Miscellaneous Notes* Addendum Note - Judith Pickard APRN.CNP - 06/17/2024 12:20 PM EDTAddended by: JUDITH PICKARD on: 06/17/2024 12:20 PM Modules accepted: Orders documented in this encounterAcmc [facility] System09-26-2024 Instructions* Patient Instructions* Judith Pickard APRN.CNP - 06/17/2024 12:10 PM EDT 1) Consult uro- gynecology (closest place) 2) OTC minoxidil topically to hair 3) Follow up in 6 months documented in this encounterAcmc Healthcare System09-26-2024 History of Present illness Narrative* Judith Pickard APRN.CNP - 06/17/2024 11:49 AM EDT This is a 78 year old female who presents today with: Patient presents with: Hypertension: Follow up HISTORY OF PRESENT ILLNESS: Lisa Up is a 78 year old female. Patient presents with: Hypertension: Follow up HTN: Patient is compliant with meds Yes Monitors bp at home: Yes. Denies side effects: No. Chest pain: No. Occ. Right sided sharp pain brief Dyspnea: No. Edema: better. Palpitations: No. Syncope: No. Headache: No. Dizziness: No. Losing hair over the past 2 years, worse lately, even during last TSH. Saw pelvic floor therapist- incontinent PAST MEDICAL HISTORY: PAST MEDICAL HISTORY Diagnosis Date ANXIETY STATE NOS 06/07/2005 Arthritis Cancer (HCC) Carpal tunnel syndrome 06/07/2005 Cholelithiasis 06/17/2012 DEPRESSIVE DISORDER NEC 06/07/2005 Diverticulosis of colon (without mention of hemorrhage) Dizziness and giddiness 02/26/2010 GENERAL OSTEOARTHROSIS 06/07/2005 Goiter, unspecified 12/11/2010 Headache(784.0) 02/26/2010 Chronic. 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 Ramírez, severe PAST SURGICAL HISTORY Procedure Laterality Date ABDOMINAL SURGERY HX ARTHRP KNE CONDYLE&PLATU MEDIAL&LAT COMPARTMENTS February2010 Knee replacement, total, Left ARTHRP KNE CONDYLE&PLATU MEDIAL&LAT COMPARTMENTS 07/2010 Knee replacement, total, Right BACK SURGERY HX COLONOSCOPY FLX DX W/COLLJ SPEC WHEN PFRMD 06/05/2011 Colonoscopy COLONOSCOPY FLX DX W/COLLJ SPEC WHEN PFRMD N/A 12/04/2016 ESOPHAGOGASTRODUODENOSCOPY TRANSORAL DIAGNOSTIC N/A 12/04/2016 DEVORA FILTER 2019 INSJ TUNNELED CTR VAD W/SUBQ PORT AGE 5 YR/> 06/05/2022 JOINT REPLACEMENT HX L'SCOPE CHOLECYSTECTOMY 07/30/2022 Dr Gonzalez NEPHRECTOMY PARTIAL 1986 Nephrectomy, partial left (benign) PAST SURGICAL HISTORY OF 06/2018 lumbar burger with wound infection TONSILLECTOMY HX TOTAL ABDOMINAL HYSTERECT W/WO RMVL TUBE OVARY 1985 Hysterectomy, NEISHA VAGINAL HYSTERECTOMY ALLERGIES Covid-19 Vaccine, Mrna, [id number], Lnp-S (Moderna); Adhesive; Erythromycin; Latex; Lisinopril; Nafcillin; Nifedipine; Norvasc [Amlodipine Besylate]; and Wasps MEDICATIONS Current Outpatient Medications Medication Sig hydrALAZINE (APRESOLINE) 50 mg tablet Take 1 tablet by mouth three times a day. carvedilol (COREG) 25 mg tablet Take 1 tablet by mouth two times a day. omeprazole (PRILOSEC) 20 mg capsule Take 1 capsule by mouth once daily. PARoxetine (PAXIL) 10 mg tablet Take 1 tablet by mouth once daily. psyllium husk (KONSYL) 6 gram pwpk packet Take 1 Packet by mouth two times a day. potassium chloride (K-TAB) 10 mEq tablet Take 1 tablet by mouth two times a day. OTC PRODUCT Super Snooze with Melatonin: Take one capsule by mouth at bedtime as needed. acetaminophen 650 mg CR tablet Take 650 mg by mouth every 8 hours as needed. EPINEPHrine (EPIPEN) 0.3 mg/0.3 mL auto-injector Use as directed multivitamin/iron/folic acid (CENTRUM ULTRA WOMEN'S ORAL) Take 1 tablet by mouth once daily. losartan (COZAAR) 50 mg tablet Take 1 tablet by mouth once daily. apixaban (ELIQUIS) 5 mg tab(s) Take 1 tablet by mouth two times a day. gabapentin (NEURONTIN) 400 mg capsule Take 1 capsule by mouth two times a day for 180 days. levothyroxine (SYNTHROID) 75 mcg tablet Take 1 tablet by mouth daily before breakfast. No current facility-administered medications for this visit. FAMILY HISTORY Problem Relation Age of Onset Heart Mother Cancer Mother lung Heart Father other (Other) Father Heart Brother [place], aneurysm Migraines Daughter Macular Degen Maternal Aunt Social History Tobacco Use Smoking status: Never Smokeless tobacco: Never Vaping Use Vaping status: Never Used Substance Use Topics Alcohol use: No Drug use: No EXAM: BP 120/68 Pulse 68 Resp 16 Wt 106.7 kg (235 lb 3.7 oz) SpO2 98% BMI 41.67 kg/m PHYSICAL EXAM: Physical Exam Vitals reviewed. Constitutional: Appearance: Normal appearance. She is obese. HENT: Head: Normocephalic. Cardiovascular: Rate and Rhythm: Normal rate and regular rhythm. Pulses: Normal pulses. Heart sounds: Normal heart sounds. Pulmonary: Effort: Pulmonary effort is normal. Breath sounds: Normal breath sounds. Abdominal: General: Bowel sounds are normal. There is no distension. Palpations: Abdomen is soft. Tenderness: There is no guarding. Musculoskeletal: General: Normal range of motion. Skin: General: Skin is warm and dry. Comments: Significant hair loss noted on top of head Neurological: Mental Status: She is alert. LABS: ASSESSMENT/PLAN: 1. History of DVT (deep vein thrombosis) - ICD9: V12.51, ICD10: Z86.718 (primary diagnosis) Stable - APIXABAN 5 MG TABLET 2. Essential hypertension - ICD9: 401.9, ICD10: I10 - Controlled - Recommend home blood pressure monitoring, to bring results to next visit - Encouraged sodium restriction, DASH or Mediterranean diet - Recommend regular aerobic exercise - LOSARTAN 50 MG TABLET 3. Migraine without aura and without status migrainosus, not intractable - ICD9: 346.10, ICD10: G43.009 Stable - GABAPENTIN 400 MG CAPSULE 4. Hypothyroidism, unspecified type - ICD9: 244.9, ICD10: E03.9 - Instructed patient on importance of taking on an empty stomach either first thing in the morning or at bedtime. - LEVOTHYROXINE 75 MCG TABLET 5. Urge incontinence - ICD9: 788.31, ICD10: N39.41 Significant concern for pt. - CONSULT TO UROLOGY 6. Hair loss - ICD9: 704.00, ICD10: L65.9 Reviewed medications associated, blood thinner likely- can't d/c - Will try topical minoxidil Discussed treatment plan and patient voices understanding. Patient's questions answered appropriately. Medications and potential side effects were discussed and patient voices understanding. Return to the office as scheduled or as needed for worsening/no improvement. Judith Pickard APRN.CNP documented in this encounterAcmc [facility] System08-27-2024 Instructions* Patient Instructions* Judith Pickard APRN.CNP - 05/18/2024 2:45 PM EDT 1) Keep appt. 06/17 2) Stop clonidine 3) Decrease gabapentin to bedtime only, send message next week how you feel. Will likely discontinue documented in this encounterAcmc Healthcare System08-27-2024 History of Present illness Narrative* Judith Pickard APRN.CNP - 05/18/2024 2:28 PM EDT This is a 78 year old female who presents today with: Patient presents with: ER F/U: [facility] 05/08/24 HISTORY OF PRESENT ILLNESS: Lisa Up is a 78 year old female. Patient presents with: ER F/U: [facility] 05/08/24 Walking to the bathroom, unsteady. Fell- passed out. Went to the emergency room at [facility], had a complete workup including a CT of the head and chest x-ray along with labs. They did not find cause for her lightheadedness or passing out. Mind still isn't felling well. ER told her that her medication may be causing Sx. Dizzy even sitting in the chair. Not really dizzy but feels pressure on her head. Some nausea. No vomiting. Weak all over. Not eating much. Bowels are working. Colonoscopy might have helped. PAST MEDICAL HISTORY: PAST MEDICAL HISTORY 06/07/2005: ANXIETY STATE NOS No date: Arthritis No date: Cancer (HCC) 06/07/2005: Carpal tunnel syndrome 06/17/2012: Cholelithiasis 06/07/2005: DEPRESSIVE DISORDER NEC No date: Diverticulosis of colon (without mention of hemorrhage) 02/26/2010: Dizziness and giddiness 06/07/2005: GENERAL OSTEOARTHROSIS 12/11/2010: Goiter, unspecified 02/26/2010: Headache(784.0) Comment: Chronic. No date: History of transfusion 06/07/2005: HYPERLIPIDEMIA NEC/NOS 06/07/2005: HYPERTENSION NOS 06/07/2005: IDIO PERIPH NEURPTHY NEC 12/19/2010: Mixed incontinence urge and stress No date: Multiple thyroid nodules 01/01/2011: Nontoxic multinodular goiter 06/07/2005: OBESITY NOS 02/13/2010: Primary localized osteoarthrosis, lower leg 09/22/2015: Spinal stenosis, lumbar Comment: Dr. Ramírez, severe PAST SURGICAL HISTORY No date: ABDOMINAL SURGERY HX February2010: ARTHRP KNE CONDYLE&PLATU MEDIAL&LAT COMPARTMENTS Comment: Knee replacement, total, Left 07/2010: ARTHRP KNE CONDYLE&PLATU MEDIAL&LAT COMPARTMENTS Comment: Knee replacement, total, Right No date: BACK SURGERY HX 06/05/2011: COLONOSCOPY FLX DX W/COLLJ SPEC WHEN PFRMD Comment: Colonoscopy 12/04/2016: COLONOSCOPY FLX DX W/COLLJ SPEC WHEN PFRMD; N/A 12/04/2016: ESOPHAGOGASTRODUODENOSCOPY TRANSORAL DIAGNOSTIC; N/A No date: [employer]A FILTER Comment: 201806/05/2022: INSJ TUNNELED CTR VAD W/SUBQ PORT AGE 3 YR/> No date: JOINT REPLACEMENT HX 07/30/2022: L'SCOPE CHOLECYSTECTOMY Comment: Dr Gonzalez 1985: NEPHRECTOMY PARTIAL Comment: Nephrectomy, partial left (benign) 06/2018: PAST SURGICAL HISTORY OF Comment: lumbar burger with wound infection No date: TONSILLECTOMY HX 1985: TOTAL ABDOMINAL HYSTERECT W/WO RMVL TUBE OVARY Comment: Hysterectomy, NEISHA No date: VAGINAL HYSTERECTOMY ALLERGIES Covid-19 Vaccine, Mrna, [id number], Lnp-S (Moderna); Adhesive; Erythromycin; Latex; Lisinopril; Nafcillin; Nifedipine; Norvasc [Amlodipine Besylate]; and Wasps MEDICATIONS Current Outpatient Medications Medication Sig carvedilol (COREG) 25 mg tablet Take 1 tablet by mouth two times a day. cloNIDine HCl (CATAPRES) 0.1 mg tablet Take 1 tablet by mouth two times a day. omeprazole (PRILOSEC) 20 mg capsule Take 1 capsule by mouth once daily. PARoxetine (PAXIL) 10 mg tablet Take 1 tablet by mouth once daily. psyllium husk (KONSYL) 6 gram pwpk packet Take 1 Packet by mouth two times a day. gabapentin (NEURONTIN) 400 mg capsule Take 1 capsule by mouth every 8 hours for 180 days. hydrALAZINE (APRESOLINE) 50 mg tablet Take 1 tablet by mouth two times a day. potassium chloride (K-TAB) 10 mEq tablet Take 1 tablet by mouth two times a day. levothyroxine (SYNTHROID) 75 mcg tablet Take 1 tablet by mouth daily before breakfast. apixaban (ELIQUIS) 5 mg tab(s) Take 1 tablet by mouth two times a day. OTC PRODUCT Super Snooze with Melatonin: Take one capsule by mouth at bedtime as needed. acetaminophen 650 mg CR tablet Take 650 mg by mouth every 8 hours as needed. EPINEPHrine (EPIPEN) 0.3 mg/0.3 mL auto-injector Use as directed multivitamin/iron/folic acid (CENTRUM ULTRA WOMEN'S ORAL) Take 1 tablet by mouth once daily. No current facility-administered medications for this visit. FAMILY HISTORY Problem Relation Age of Onset Heart Mother Cancer Mother lung Heart Father other (Other) Father Heart Brother [place], aneurysm Migraines Daughter Macular Degen Maternal Aunt Social History Tobacco Use Smoking status: Never Smokeless tobacco: Never Vaping Use Vaping status: Never Used Substance Use Topics Alcohol use: No Drug use: No 130/60 sitting, 100/40 standing EXAM: BP 129/78 Pulse 60 Wt 106.6 kg (235 lb) SpO2 96% BMI 41.63 kg/m PHYSICAL EXAM: Physical Exam Vitals reviewed. Constitutional: Appearance: Normal appearance. She is obese. HENT: Head: Normocephalic. Right Ear: Tympanic membrane, ear canal and external ear normal. Left Ear: Tympanic membrane, ear canal and external ear normal. Nose: Nose normal. No congestion or rhinorrhea. Mouth/Throat: Mouth: Mucous membranes are dry. Pharynx: Oropharynx is clear. No oropharyngeal exudate or posterior oropharyngeal erythema. Cardiovascular: Rate and Rhythm: Normal rate and regular rhythm. Pulses: Normal pulses. Heart sounds: Normal heart sounds. Pulmonary: Effort: Pulmonary effort is normal. Breath sounds: Normal breath sounds. Abdominal: General: Bowel sounds are normal. Palpations: Abdomen is soft. Musculoskeletal: Comments: Generalized weakness, able to stand with help. Presents in wheelchair Skin: General: Skin is warm and dry. Neurological: Mental Status: She is alert. LABS: ASSESSMENT/PLAN: 1. Migraine without aura and without status migrainosus, not intractable - ICD9: 346.10, ICD10: G43.009 (primary diagnosis) Stable 2. Left arm pain - ICD9: 729.5, ICD10: M79.602 Reduce gabapentin to bedtime, may have to stop - GABAPENTIN 400 MG CAPSULE 3. Neck pain - ICD9: 723.1, ICD10: M54.2 Reduce gabapentin to bedtime, may have to stop - GABAPENTIN 400 MG CAPSULE 4. DDD (degenerative disc disease), lumbar - ICD9: 722.52, ICD10: M51.36 Chronic low back pain - GABAPENTIN 400 MG CAPSULE reduced to bedtime, will likely have to stop 5. Essential hypertension - ICD9: 401.9, ICD10: I10 - Controlled - Recommend home blood pressure monitoring, to bring results to next visit - Encouraged sodium restriction, DASH or Mediterranean diet - Recommend regular aerobic exercise 6. Pure hypercholesterolemia - ICD9: 272.0, ICD10: E78.00 Stable 7. Orthostatic dizziness - ICD9: 780.4, ICD10: R42 Stop clonidine, had already reduced dose 8. Dizziness - ICD9: 780.4, ICD10: R42 Reduce gabapentin to bedtime, will likely have to stop Discussed treatment plan and patient voices understanding. Patient's questions answered appropriately. Medications and potential side effects were discussed and patient voices understanding. Return to the office as scheduled or as needed for worsening/no improvement. Judith Pickard APRN.CRISIS COUNSELOR documented in this encounterAcmc [facility] System08-21-2024 Telephone encounter Note * Telephone Encounter - Felicia West LPN - 05/12/2024 6:58 PM EDT Patient notified.Felicia West LPN [facility]08-[facility] Miscellaneous Notes* Telephone Encounter - Felicia West LPN - 05/12/2024 6:58 PM EDT Patient notified.Felicia West LPN * Telephone Encounter - Sathya Rajan MD - 05/12/2024 6:54 PM EDT Urine culture did not show a clear infection. Finish antibiotic and follow up with PCP, urology, orGYN for recheck of urine. documented in this encounterAcmc [facility] System08-21-2024 Telephone encounter Note * Telephone Encounter - Sathya Rajan MD - 05/12/2024 6:54 PM EDT Urine culture did not show a clear infection. Finish antibiotic and follow up with PCP, urology, orGYN for recheck of urine. [facility] Work Phone: [phone]) 505-636908-20-2024 Instructions* Patient Instructions* Enid Potter APRN.CNP - 05/11/2024 2:19 PM EDT - Macrobid twice daily for 5 days - Will call if need to stop or change your antibiotics based on culture - If your symptoms continue after treatment or worsen please follow up with your primary care doctor - Follow up with your primary care doctor in 2-3 weeks to make sure there is no longer blood in your urine - ER if you are unable to urinate, develop a fever or severe or concerning symptoms documented in this encounterAcmc Healthcare System08-20-2024 History of Present illness Narrative* Enid Potter APRN.CNP - 05/11/2024 1:51 PM EDT Patient presents with: Urinary Frequency: Frequency and burning x 1 week Her past several urine cultures were contaminated She was seen in the ER 3 days ago for a fall, they tested her urine at that time and it was negative for a urine Urine was cloudy this morning, but has since cleared up The history is provided by the patient. Review of Systems Constitutional: Negative for fever. Genitourinary: Positive for dysuria and frequency. Negative for flank pain, hematuria and pelvic pain. Physical Exam Vitals reviewed. Constitutional: Appearance: Normal appearance. HENT: Head: Normocephalic. Eyes: Extraocular Movements: Extraocular movements intact. Cardiovascular: Rate and Rhythm: Normal rate and regular rhythm. Heart sounds: No murmur heard. Pulmonary: Effort: No respiratory distress. Breath sounds: Normal breath sounds. Abdominal: Palpations: Abdomen is soft. Tenderness: There is no abdominal tenderness. There is no right CVA tenderness or left CVA tenderness. Neurological: Mental Status: She is alert. ASSESSMENT/PLAN: 1. Urinary frequency - ICD9: 788.41, ICD10: R35.0 acute - UA positive for nolvia esterase, hematuria, and proteinuria - Send urine for culture - Begin treatment with Macrobid 100 mg BID for 5 days - Patient education for prevention given - UA DIP, URINE (POC) - URINE CULTURE - Will notify patient if need to stop or change antibiotics based on culture results - If symptoms continue encouraged to follow up with PCP or sooner if symptoms worsen - Reviewed symptoms to present to ER - She verbalized understanding and agreement with this plan. Enid Potter APRN.CNP documented in this encounterAcmc [facility] System08-12-2024 Instructions* Patient Instructions* Judith Pickard APRN.CNP - 05/03/2024 11:04 AM EDT 1) Fiber once a day with a full glass of water 2) Decrease omeprazole to once a day 3) Decrease clonidine to 0.1 mg 2 x day or 0.2 mg once a day 4) Follow up in 6 weeks documented in this encounterAcmc Healthcare System08-12-2024 History of Present illness Narrative* Judith Pickard APRN.CNP - 05/03/2024 10:44 AM EDT This is a 78 year old female who presents today with: Patient presents with: Vertigo: 4 week follow up HISTORY OF PRESENT ILLNESS: Lisa Up is a 78 year old female. Patient presents with: Vertigo: 4 week follow up Got mixed up on medications, doubled up on carvedilol rather than clonidine. They sound alike. Had colonoscopy, told they did not find anything. They told her to check with us about diarrhea causing meds. Still a little whoozy. All the time. Not any more weak than usual. No headache. No nausea. HTN: Patient is compliant with meds Got them mixed up, may have taken them wrong Monitors bp at home: Yes. Sometimes Denies side effects: No. Chest pain: No. Dyspnea: No. Edema: No. Palpitations: No. Syncope: No. Headache: No. Dizziness: Occasionally. PAST MEDICAL HISTORY: PAST MEDICAL HISTORY 06/07/2005: ANXIETY STATE NOS No date: Arthritis No date: Cancer (HCC) 06/07/2005: Carpal tunnel syndrome 06/17/2012: Cholelithiasis 06/07/2005: DEPRESSIVE DISORDER NEC No date: Diverticulosis of colon (without mention of hemorrhage) 02/26/2010: Dizziness and giddiness 06/07/2005: GENERAL OSTEOARTHROSIS 12/11/2010: Goiter, unspecified 02/26/2010: Headache(784.0) Comment: Chronic. No date: History of transfusion 06/07/2005: HYPERLIPIDEMIA NEC/NOS 06/07/2005: HYPERTENSION NOS 06/07/2005: IDIO PERIPH NEURPTHY NEC 12/19/2010: Mixed incontinence urge and stress No date: Multiple thyroid nodules 01/01/2011: Nontoxic multinodular goiter 06/07/2005: OBESITY NOS 02/13/2010: Primary localized osteoarthrosis, lower leg 09/22/2015: Spinal stenosis, lumbar Comment: Dr. Ramírez, severe PAST SURGICAL HISTORY No date: ABDOMINAL SURGERY HX February2010: ARTHRP KNE CONDYLE&PLATU MEDIAL&LAT COMPARTMENTS Comment: Knee replacement, total, Left 07/2010: ARTHRP KNE CONDYLE&PLATU MEDIAL&LAT COMPARTMENTS Comment: Knee replacement, total, Right No date: BACK SURGERY HX 06/05/2011: COLONOSCOPY FLX DX W/COLLJ SPEC WHEN PFRMD Comment: Colonoscopy 12/04/2016: COLONOSCOPY FLX DX W/COLLJ SPEC WHEN PFRMD; N/A 12/04/2016: ESOPHAGOGASTRODUODENOSCOPY TRANSORAL DIAGNOSTIC; N/A No date: [employer] FILTER Comment: 201806/05/2022: INSJ TUNNELED CTR VAD W/SUBQ PORT AGE 3 YR/> No date: JOINT REPLACEMENT HX 07/30/2022: L'SCOPE CHOLECYSTECTOMY Comment: Dr Gonzalez 1985: NEPHRECTOMY PARTIAL Comment: Nephrectomy, partial left (benign) 06/2018: PAST SURGICAL HISTORY OF Comment: lumbar burger with wound infection No date: TONSILLECTOMY HX 1985: TOTAL ABDOMINAL HYSTERECT W/WO RMVL TUBE OVARY Comment: Hysterectomy, NEISHA No date: VAGINAL HYSTERECTOMY ALLERGIES Covid-19 Vaccine, Mrna, [id number], Lnp-S (Moderna); Adhesive; Erythromycin; Latex; Lisinopril; Nafcillin; Nifedipine; Norvasc [Amlodipine Besylate]; and Wasps MEDICATIONS Current Outpatient Medications Medication Sig meclizine (ANTIVERT) 25 mg tab Take 1 tablet by mouth three times a day. cloNIDine HCl (CATAPRES) 0.2 mg tablet Take 1 tablet by mouth two times a day. PARoxetine (PAXIL) 10 mg tablet Take 1 tablet by mouth once daily. psyllium husk (KONSYL) 6 gram pwpk packet Take 1 Packet by mouth two times a day. gabapentin (NEURONTIN) 400 mg capsule Take 1 capsule by mouth every 8 hours for 180 days. carvedilol (COREG) 25 mg tablet Take 1 tablet by mouth two times a day. omeprazole (PRILOSEC) 20 mg capsule Take 1 capsule by mouth two times a day. hydrALAZINE (APRESOLINE) 50 mg tablet Take 1 tablet by mouth two times a day. potassium chloride (K-TAB) 10 mEq tablet Take 1 tablet by mouth two times a day. levothyroxine (SYNTHROID) 75 mcg tablet Take 1 tablet by mouth daily before breakfast. apixaban (ELIQUIS) 5 mg tab(s) Take 1 tablet by mouth two times a day. OTC PRODUCT Super Snooze with Melatonin: Take one capsule by mouth at bedtime as needed. acetaminophen 650 mg CR tablet Take 650 mg by mouth every 8 hours as needed. EPINEPHrine (EPIPEN) 0.3 mg/0.3 mL auto-injector Use as directed multivitamin/iron/folic acid (CENTRUM ULTRA WOMEN'S ORAL) Take 1 tablet by mouth once daily. No current facility-administered medications for this visit. FAMILY HISTORY Problem Relation Age of Onset Heart Mother Cancer Mother lung Heart Father other (Other) Father Heart Brother [place], aneurysm Migraines Daughter Macular Degen Maternal Aunt Social History Tobacco Use Smoking status: Never Smokeless tobacco: Never Vaping Use Vaping Use: Never used Substance Use Topics Alcohol use: No Drug use: No 70/38 sitting, 84/56 standing EXAM: BP 102/50 Pulse 67 Wt 103.4 kg (228 lb) SpO2 96% BMI 40.39 kg/m PHYSICAL EXAM: Physical Exam Vitals reviewed. Constitutional: Appearance: Normal appearance. HENT: Head: Normocephalic. Cardiovascular: Rate and Rhythm: Normal rate and regular rhythm. Pulses: Normal pulses. Heart sounds: Normal heart sounds. Pulmonary: Effort: Pulmonary effort is normal. Breath sounds: Normal breath sounds. Musculoskeletal: Comments: Generalized weakness, unsteady on feet Skin: General: Skin is warm and dry. Neurological: Mental Status: She is alert. LABS: ASSESSMENT/PLAN: 1. Essential hypertension - ICD9: 401.9, ICD10: I10 (primary diagnosis) - Controlled - Recommend home blood pressure monitoring, to bring results to next visit - Encouraged sodium restriction, DASH or Mediterranean diet - Recommend regular aerobic exercise - Follow up in 6 weeks - Decrease clonidine 0.1 mg 2 x day or 0.2 mg once a day 2. GERD without esophagitis - ICD9: 530.81, ICD10: K21.9 - decrease omeprazole to once daily - OMEPRAZOLE 20 MG CAPSULE,DELAYED RELEASE 3. Diarrhea, unspecified type - ICD9: 787.91, ICD10: R19.7 - Cut omeprazole down to once a day - Add fiber daily with a full cup of water Discussed treatment plan and patient voices understanding. Patient's questions answered appropriately. Medications and potential side effects were discussed and patient voices understanding. Return to the office as scheduled or as needed for worsening/no improvement. Judith Pickard APRN.LEONCIO documented in this encounterA[facility]08-08-2024 History and physical note * Zeny Crowder MD - 04/29/2024 12:30 PM EDT HISTORY AND PHYSICAL Lisa Up 1945 REFERRING PHYSICIAN: Judith Pickard A* CHIEF COMPLAINT: Consult (Diarrhea, abd cramping) HPI: The patient is a 78 year old female referred for endoscopy. Lisa notes the following GI complaints: Lisa denies abdominal pain.. Lisa notes diarrhea. Lisa denies constipation. Lisa denies a change in bowel habits. Lisa denies melena. Lisa denies bright red blood per rectum. Lisa denies hemorrhoids. Diarrhea: - on and off for a month - currently taking psyllium husk, pt states it is not helping - 4 BM's daily - pt not eating and drinking as much due to increased BM's - dark BM's but not black - appointment with Dr. Crowder in 2 weeks - no nausea or vomiting - generalized abdominal cramps and bloating intermittently typically right before BM - drinking a lot of water and gatorade The patient notes no history of upper GI complaints. Lisa has undergone prior endoscopy. November 2016 The patient is being seen by me today at the request of Dr. Pickard for my opinion and advice regarding Diarrhea, unspecified type. PAST MEDICAL HISTORY PAST MEDICAL HISTORY Diagnosis Date ANXIETY STATE NOS 06/07/2005 Arthritis Cancer (HCC) Carpal tunnel syndrome 06/07/2005 Cholelithiasis 06/17/2012 DEPRESSIVE DISORDER NEC 06/07/2005 Diverticulosis of colon (without mention of hemorrhage) Dizziness and giddiness 02/26/2010 GENERAL OSTEOARTHROSIS 06/07/2005 Goiter, unspecified 12/11/2010 Headache(784.0) 02/26/2010 Chronic. 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 Ramírez, severe PAST SURGICAL HISTORY PAST SURGICAL HISTORY Procedure Laterality Date ABDOMINAL SURGERY HX ARTHRP KNE CONDYLE&PLATU MEDIAL&LAT COMPARTMENTS February2010 Knee replacement, total, Left ARTHRP KNE CONDYLE&PLATU MEDIAL&LAT COMPARTMENTS 07/2010 Knee replacement, total, Right BACK SURGERY HX COLONOSCOPY FLX DX W/COLLJ SPEC WHEN PFRMD 06/05/2011 Colonoscopy COLONOSCOPY FLX DX W/COLLJ SPEC WHEN PFRMD N/A 12/04/2016 ESOPHAGOGASTRODUODENOSCOPY TRANSORAL DIAGNOSTIC N/A 12/04/2016 DEVORA FILTER 2019 INSJ TUNNELED CTR VAD W/SUBQ PORT AGE 5 YR/> 06/05/2022 JOINT REPLACEMENT HX L'SCOPE CHOLECYSTECTOMY 07/30/2022 Dr Gonzalez NEPHRECTOMY PARTIAL 1986 Nephrectomy, partial left (benign) PAST SURGICAL HISTORY OF 06/2018 lumbar burger with wound infection TONSILLECTOMY HX TOTAL ABDOMINAL HYSTERECT W/WO RMVL TUBE OVARY 1985 Hysterectomy, NEISHA VAGINAL HYSTERECTOMY CURRENT MEDICATIONS Current Outpatient Medications Medication Sig PARoxetine (PAXIL) 10 mg tablet Take 1 tablet by mouth once daily. psyllium husk (KONSYL) 6 gram pwpk packet Take 1 Packet by mouth two times a day. gabapentin (NEURONTIN) 400 mg capsule Take 1 capsule by mouth every 8 hours for 180 days. carvedilol (COREG) 25 mg tablet Take 1 tablet by mouth two times a day. omeprazole (PRILOSEC) 20 mg capsule Take 1 capsule by mouth two times a day. hydrALAZINE (APRESOLINE) 50 mg tablet Take 1 tablet by mouth two times a day. potassium chloride (K-TAB) 10 mEq tablet Take 1 tablet by mouth two times a day. levothyroxine (SYNTHROID) 75 mcg tablet Take 1 tablet by mouth daily before breakfast. apixaban (ELIQUIS) 5 mg tab(s) Take 1 tablet by mouth two times a day. OTC PRODUCT Super Snooze with Melatonin: Take one capsule by mouth at bedtime as needed. acetaminophen 650 mg CR tablet Take 650 mg by mouth every 8 hours as needed. EPINEPHrine (EPIPEN) 0.3 mg/0.3 mL auto-injector Use as directed multivitamin/iron/folic acid (CENTRUM ULTRA WOMEN'S ORAL) Take 1 tablet by mouth once daily. No current facility-administered medications for this visit. ALLERGIES: Covid-19 Vaccine, Mrna, [id number], Lnp-S (Moderna); Adhesive; Erythromycin; Latex; Lisinopril; Nafcillin; Nifedipine; Norvasc [Amlodipine Besylate]; and Wasps PERSONAL HISTORY: SOCIAL HISTORY Social History Tobacco Use Smoking status: Never Smokeless tobacco: Never Vaping Use Vaping Use: Never used Substance Use Topics Alcohol use: No Drug use: No FAMILY HISTORY: FAMILY HISTORY FAMILY HISTORY Problem Relation Age of Onset Heart Mother Cancer Mother lung Heart Father other (Other) Father Heart Brother [place], aneurysm Migraines Daughter Macular Degen Maternal Aunt REVIEW OF SYMPTOMS: The review of systems data was entered by the nurse and reviewed by mn Nursing Notes: Ana Hernandez RN 03/29/2024 2:08 PM Signed REVIEW OF SYSTEMS: General: The patient NOTES fatigue, denies weight loss, denies weight gain, denies feeling hot, anddenies feelings of cold. Eyes: The patient denies glaucoma, denies eye injury/surgery, does not wear glasses or contacts. Ear/Nose/Throat: The patient NOTES allergies, denies hayfever, denies ear infections, and denies bloody noses. Cardiovascular: The patient denies chest pain, denies heart disease, NOTES high blood pressure,denies cardiac stent, denies prior heart attack, denies irregular heart beat, denies high cholesterol, denies poor circulation, denies heart failure, other cardiac issues, NOTED claudication, NOTES cold feet, denies peripheral arterial stent. Respiratory: The patient denies tuberculosis, denies pneumonia, denies frequent cough, denies pulmonary embolism, denies shortness of breath, and denies coughing up blood. Gastrointestinal: The patient denies difficulty swallowing, denies acid reflux, denies ulcers, denies vomiting, denies jaundice/hepatitis, NOTES gallbladder problems, denies black or tarry stools, NOTES hemorrhoids, denies bleeding from rectum, denies diverticulitis, NOTES constipation, denies diarrhea, denies loss of stool control, and denies hernias. Kidney/Bladder: The patient denies kidney stones, NOTES urine infections, and denies bloody urine. Skin: The patient denies a history of skin cancer, denies bleeding/changing moles, and denies a history of skin rash. Neurologic: The patient denies a history of epilepsy/convulsions, NOTES headaches, denies head/spinal injuries, and denies stroke/TIA. Psychiatric: The patient denies psychiatric medications, denies depression, and denies voices, denies substance abuse. Endocrine: The patient NOTES thyroid disorders, denies diabetes, and denies hormonal problems. Hematologic: The patient denies a history of bruising, denies bleeding, and denies anemia, denies blood clots. Infections: The patient denies a history of measles and mumps, denies rheumatic fever, and denies sexually transmitted diseases. Musculoskeletal: The patient NOTES back pain/injury, NOTES back problems, denies sciatica, denies knee/foot trouble, denies arthritis, or denies gout. When was patient's last Mammogram screening? 07/08/2023 Last Colonoscopy: 12/04/2016 FRANCESCO Bonilla Billie, RN 03/29/2024 2:45 PM Signed This Nurse reviewed and provided patient with copy of written instructions. The patient verbalized understanding and was given a number for questions. Ana Hernandez RN PHYSICAL EXAMINATION: General: The patient is 78 year old female, well nourished, well hydrated in no acute distress. Thepatient is oriented to time, place, and person. VITALS: Blood pressure 136/84, pulse 78, temperature 36.6 C (97.9 F), height 160 cm (5' 3), nvdeis236.3 kg (234 lb 6.4 oz), SpO2 94%. Body mass index is 41.52 kg/m . HEENT: Normal cephalic, ataumatic, pupils are equally round, sclera are anicteric, mucous membranesare moist, oropharynx is clear. Neck has no masses, asymmetry or lymphadenopathy. Thyroid is unremarkable. Respiratory: Clear to auscultation and percussion. Normal respiratory excursion and pattern. Cardiac: Examination is regular rate and rhythm. Abdominal exam: Soft, nontender, with no palpable masses. No hepatosplenomegaly. No palpable hernias. Rectal exam: exam deferred Extremities: no clubbing, cyanosis or edema. No adenopathy. Other: LABORATORY VALUES: As Noted RADIOLOGIC STUDIES: As Noted Assessment IMPRESSION: Diarrhea, unspecified type PLAN: I plan to perform lower endoscopy. We discussed the risks and benefits of the planned endoscopy. I have informed the patient that complications can occur including failure to complete the endoscopy and perforation. The patient had the opportunity to ask questions concerning the planned endoscopy. My staff has also explained the procedure to the patient in understandable terms and has given the patient printed material concerning the procedure. The patient freely consents to surgery. I plan to use Miralax bowel preperation for endoscopy Diagnoses: (R19.7) Diarrhea, unspecified type My findings have been communicated to Dr. Pickard via shared medical record. This note will be forwarded to Dr. Sylvia Lizama MD. Return to Clinic: The patient is instructed to follow-up with me 1 week post operatively. Zeny Crowder III, MD UPDATED HISTORY AND PHYSICAL EXAMINATION SERVICE DATE: 04/29/2024 SERVICE TIME: 11:45 AM PHYSICAL EXAM MUST BE COMPLETED ON ADMISSION The History and Physical (completed in the past 30 days) has been reviewed and the patient has beenexamined. The contents accurately reflect the patient's condition with the following additions or revisions since the H&P was completed. Examination indicates no changes. This H&P can be found in the attached. SIGNATURE: Zeny Crowder III, MD PATIENT NAME: Lisa Up DATE: April 29, 2024 TIME: 11:44 AM [facility] History and physical note* Zeny Crowder MD - 04/29/2024 12:30 PM EDT HISTORY AND PHYSICAL Lisa Up 1945 REFERRING PHYSICIAN: Judith Pickard A* CHIEF COMPLAINT: Consult (Diarrhea, abd cramping) HPI: The patient is a 78 year old female referred for endoscopy. Lisa notes the following GI complaints: Lisa denies abdominal pain.. Lisa notes diarrhea. Lisa denies constipation. Lisa denies a change in bowel habits. Lisa denies melena. Lisa denies bright red blood per rectum. Lisa denies hemorrhoids. Diarrhea: - on and off for a month - currently taking psyllium husk, pt states it is not helping - 4 BM's daily - pt not eating and drinking as much due to increased BM's - dark BM's but not black - appointment with Dr. Crowder in 2 weeks - no nausea or vomiting - generalized abdominal cramps and bloating intermittently typically right before BM - drinking a lot of water and gatorade The patient notes no history of upper GI complaints. Lisa has undergone prior endoscopy. November 2016 The patient is being seen by me today at the request of Dr. Pickard for my opinion and advice regarding Diarrhea, unspecified type. PAST MEDICAL HISTORY PAST MEDICAL HISTORY Diagnosis Date ANXIETY STATE NOS 06/07/2005 Arthritis Cancer (HCC) Carpal tunnel syndrome 06/07/2005 Cholelithiasis 06/17/2012 DEPRESSIVE DISORDER NEC 06/07/2005 Diverticulosis of colon (without mention of hemorrhage) Dizziness and giddiness 02/26/2010 GENERAL OSTEOARTHROSIS 06/07/2005 Goiter, unspecified 12/11/2010 Headache(784.0) 02/26/2010 Chronic. 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 Ramírez, severe PAST SURGICAL HISTORY PAST SURGICAL HISTORY Procedure Laterality Date ABDOMINAL SURGERY HX ARTHRP KNE CONDYLE&PLATU MEDIAL&LAT COMPARTMENTS February2010 Knee replacement, total, Left ARTHRP KNE CONDYLE&PLATU MEDIAL&LAT COMPARTMENTS 07/2010 Knee replacement, total, Right BACK SURGERY HX COLONOSCOPY FLX DX W/COLLJ SPEC WHEN PFRMD 06/05/2011 Colonoscopy COLONOSCOPY FLX DX W/COLLJ SPEC WHEN PFRMD N/A 12/04/2016 ESOPHAGOGASTRODUODENOSCOPY TRANSORAL DIAGNOSTIC N/A 12/04/2016 DEVORA FILTER 2019 INSJ TUNNELED CTR VAD W/SUBQ PORT AGE 3 YR/> 06/05/2022 JOINT REPLACEMENT HX L'SCOPE CHOLECYSTECTOMY 07/30/2022 Dr Gonzalez NEPHRECTOMY PARTIAL 1986 Nephrectomy, partial left (benign) PAST SURGICAL HISTORY OF 06/2018 lumbar burger with wound infection TONSILLECTOMY HX TOTAL ABDOMINAL HYSTERECT W/WO RMVL TUBE OVARY 1986 Hysterectomy, NEISHA VAGINAL HYSTERECTOMY CURRENT MEDICATIONS Current Outpatient Medications Medication Sig PARoxetine (PAXIL) 10 mg tablet Take 1 tablet by mouth once daily. psyllium husk (KONSYL) 6 gram pwpk packet Take 1 Packet by mouth two times a day. gabapentin (NEURONTIN) 400 mg capsule Take 1 capsule by mouth every 8 hours for 180 days. carvedilol (COREG) 25 mg tablet Take 1 tablet by mouth two times a day. omeprazole (PRILOSEC) 20 mg capsule Take 1 capsule by mouth two times a day. hydrALAZINE (APRESOLINE) 50 mg tablet Take 1 tablet by mouth two times a day. potassium chloride (K-TAB) 10 mEq tablet Take 1 tablet by mouth two times a day. levothyroxine (SYNTHROID) 75 mcg tablet Take 1 tablet by mouth daily before breakfast. apixaban (ELIQUIS) 5 mg tab(s) Take 1 tablet by mouth two times a day. OTC PRODUCT Super Snooze with Melatonin: Take one capsule by mouth at bedtime as needed. acetaminophen 650 mg CR tablet Take 650 mg by mouth every 8 hours as needed. EPINEPHrine (EPIPEN) 0.3 mg/0.3 mL auto-injector Use as directed multivitamin/iron/folic acid (CENTRUM ULTRA WOMEN'S ORAL) Take 1 tablet by mouth once daily. No current facility-administered medications for this visit. ALLERGIES: Covid-19 Vaccine, Mrna, [id number], Lnp-S (Moderna); Adhesive; Erythromycin; Latex; Lisinopril; Nafcillin; Nifedipine; Norvasc [Amlodipine Besylate]; and Wasps PERSONAL HISTORY: SOCIAL HISTORY Social History Tobacco Use Smoking status: Never Smokeless tobacco: Never Vaping Use Vaping Use: Never used Substance Use Topics Alcohol use: No Drug use: No FAMILY HISTORY: FAMILY HISTORY FAMILY HISTORY Problem Relation Age of Onset Heart Mother Cancer Mother lung Heart Father other (Other) Father Heart Brother [place], aneurysm Migraines Daughter Macular Degen Maternal Aunt REVIEW OF SYMPTOMS: The review of systems data was entered by the nurse and reviewed by mn Nursing Notes: Ana Hernandez RN 03/29/2024 2:08 PM Signed REVIEW OF SYSTEMS: General: The patient NOTES fatigue, denies weight loss, denies weight gain, denies feeling hot, anddenies feelings of cold. Eyes: The patient denies glaucoma, denies eye injury/surgery, does not wear glasses or contacts. Ear/Nose/Throat: The patient NOTES allergies, denies hayfever, denies ear infections, and denies bloody noses. Cardiovascular: The patient denies chest pain, denies heart disease, NOTES high blood pressure,denies cardiac stent, denies prior heart attack, denies irregular heart beat, denies high cholesterol, denies poor circulation, denies heart failure, other cardiac issues, NOTED claudication, NOTES cold feet, denies peripheral arterial stent. Respiratory: The patient denies tuberculosis, denies pneumonia, denies frequent cough, denies pulmonary embolism, denies shortness of breath, and denies coughing up blood. Gastrointestinal: The patient denies difficulty swallowing, denies acid reflux, denies ulcers, denies vomiting, denies jaundice/hepatitis, NOTES gallbladder problems, denies black or tarry stools, NOTES hemorrhoids, denies bleeding from rectum, denies diverticulitis, NOTES constipation, denies diarrhea, denies loss of stool control, and denies hernias. Kidney/Bladder: The patient denies kidney stones, NOTES urine infections, and denies bloody urine. Skin: The patient denies a history of skin cancer, denies bleeding/changing moles, and denies a history of skin rash. Neurologic: The patient denies a history of epilepsy/convulsions, NOTES headaches, denies head/spinal injuries, and denies stroke/TIA. Psychiatric: The patient denies psychiatric medications, denies depression, and denies voices, denies substance abuse. Endocrine: The patient NOTES thyroid disorders, denies diabetes, and denies hormonal problems. Hematologic: The patient denies a history of bruising, denies bleeding, and denies anemia, denies blood clots. Infections: The patient denies a history of measles and mumps, denies rheumatic fever, and denies sexually transmitted diseases. Musculoskeletal: The patient NOTES back pain/injury, NOTES back problems, denies sciatica, denies knee/foot trouble, denies arthritis, or denies gout. When was patient's last Mammogram screening? 07/08/2023 Last Colonoscopy: 12/04/2016 FRANCESCO Bonilla Billie, RN 03/29/2024 2:45 PM Signed This Nurse reviewed and provided patient with copy of written instructions. The patient verbalized understanding and was given a number for questions. Ana Hernandez RN PHYSICAL EXAMINATION: General: The patient is 78 year old female, well nourished, well hydrated in no acute distress. Thepatient is oriented to time, place, and person. VITALS: Blood pressure 136/84, pulse 78, temperature 36.6 C (97.9 F), height 160 cm (5' 3), yxaiuw496.3 kg (234 lb 6.4 oz), SpO2 94%. Body mass index is 41.52 kg/m . HEENT: Normal cephalic, ataumatic, pupils are equally round, sclera are anicteric, mucous membranesare moist, oropharynx is clear. Neck has no masses, asymmetry or lymphadenopathy. Thyroid is unremarkable. Respiratory: Clear to auscultation and percussion. Normal respiratory excursion and pattern. Cardiac: Examination is regular rate and rhythm. Abdominal exam: Soft, nontender, with no palpable masses. No hepatosplenomegaly. No palpable hernias. Rectal exam: exam deferred Extremities: no clubbing, cyanosis or edema. No adenopathy. Other: LABORATORY VALUES: As Noted RADIOLOGIC STUDIES: As Noted Assessment IMPRESSION: Diarrhea, unspecified type PLAN: I plan to perform lower endoscopy. We discussed the risks and benefits of the planned endoscopy. I have informed the patient that complications can occur including failure to complete the endoscopy and perforation. The patient had the opportunity to ask questions concerning the planned endoscopy. My staff has also explained the procedure to the patient in understandable terms and has given the patient printed material concerning the procedure. The patient freely consents to surgery. I plan to use Miralax bowel preperation for endoscopy Diagnoses: (R19.7) Diarrhea, unspecified type My findings have been communicated to Dr. Pickard via shared medical record. This note will be forwarded to Dr. Sylvia Lizama MD. Return to Clinic: The patient is instructed to follow-up with me 1 week post operatively. Zeny Crowder III, MD UPDATED HISTORY AND PHYSICAL EXAMINATION SERVICE DATE: 04/29/2024 SERVICE TIME: 11:45 AM PHYSICAL EXAM MUST BE COMPLETED ON ADMISSION The History and Physical (completed in the past 30 days) has been reviewed and the patient has beenexamined. The contents accurately reflect the patient's condition with the following additions or revisions since the H&P was completed. Examination indicates no changes. This H&P can be found in the attached. SIGNATURE: Zeny Crowder III, MD PATIENT NAME: Lisa Up DATE: April 29, 2024 TIME: 11:44 AM documented in this encounterAcmc [facility] System08-08-2024 Nurse Note* Mercedes Malave RN - 04/29/2024 12:29 PM EDT pt arrived to phase 2 resting on left side. Daughter at bedside. SR up x 2, call light in reach. Mercedes Malave RN [facility]08-08-[facility] Nurse Note* Mercedes Malave RN - 04/29/2024 12:29 PM EDT pt arrived to phase 2 resting on left side. Daughter at bedside. SR up x 2, call light in reach. Mercedes Malave RN documented in this encounterAcmc Healthcare System08-08-2024 Note* Discharge Instr - Nursing - Mercedes Malave RN - 04/29/2024 12:28 PM EDT The patient received a copy of Colonoscopy discharge instructions that contain information for how to contact the physician who performed the procedure and when to seek medical care. [facility]-08-[facility] Miscellaneous Notes* Discharge Instr - Nursing - Mercedes Malave RN - 04/29/2024 12:28 PM EDT The patient received a copy of Colonoscopy discharge instructions that contain information for how to contact the physician who performed the procedure and when to seek medical care. documented in this encounterAcmc [facility] System08-07-2024 Telephone encounter Note * Telephone Encounter - Rossana Escalona LPN - 04/28/2024 9:59 AM EDT Noted. Rossana Escalona LPN [facility]08-07-[facility] Miscellaneous Notes* Telephone Encounter - Rossana Escalona LPN - 04/28/2024 9:59 AM EDT Noted. Rossana Escalona LPN * Telephone Encounter - María Elena Louis - 04/28/2024 9:23 AM EDT Spoke with patient and scheduled 4 mo appointments - lab, ct, ov. She states due to transportation, she will drop in for LDH/Uric Acid lab. She wasn't sure when daughter would be able to bring her this week. * Telephone Encounter - Brendon Coppola APRN.CNP - 04/26/2024 2:[address] abd/pelvis with Dr. Quintero. Pt. needs labs-LDH/uric acid soon. CT chest/abd/pelvis in 4 months then OV with CBC/CMP/LDH/Uric acid with Dr. Quintero. Thank you. Brendon Coppola APRN.LEONCIO documented in this encounterAcmc Healthcare System08-07-2024 Telephone encounter Note * Telephone Encounter - María Elena Louis - 04/28/2024 9:23 AM EDT Spoke with patient and scheduled 4 mo appointments - lab, ct, ov. She states due to transportation, she will drop in for LDH/Uric Acid lab. She wasn't sure when daughter would be able to bring her this week. [facility] Work Phone: [phone] 368-960608-05-2024 Telephone encounter Note* Telephone Encounter - Brendon Coppola APRN.CNP - 04/26/2024 2:[address] abd/pelvis with Dr. Quintero. Pt. needs labs-LDH/uric acid soon. CT chest/abd/pelvis in 4 months then OV with CBC/CMP/LDH/Uric acid with Dr. Quintero. Thank you. Brendon Coppola APRN.CRISIS COUNSELOR [facility]07-29-[facility] History of Present illness Narrative* Bozena Hirsch RN - 04/19/2024 7:14 PM EDT Transitional Care Management (TCM) Follow-Up Note PCP Update / Actionable Items Pt states diarrhea much improved but now has a cold - started yesterday , feeling tired and congested. Encouraged rest and hydration. Pt to contact PCP ' s office with any new or worsening symptoms. Patient Source: [id number] ([facility]) Discharge Pt discharged from [facility] on 03/26/24. Admitted for: Diarrhea , chills +norovirus Readmission Risk: n/a DIMITRI Score: n/a Value-Based Contract: ACO Contact: Contact made with patient: Yes Spoke to: Patient Validation: Validated the person spoken to is actively involved in the patient's care. The patient was identified by Name and Date of . I'd like to get an update on how you're doing since our last phone call. Is now a good time to talk? Yes Symptoms: Are you feeling about the same, better or worse since leaving the hospital? Same Weekly Outreach: Additional Outreach Medications: Do you have any questions about taking your medications, including which medications you should be on, or do you need refills on your medications? No Patient Questions / Concerns: Do you have any questions related to your discharge instructions? No Equipment: Do you have all the necessary equipment and supplies needed at your home? NO Appointment / TCM Follow-Up: Have you had a follow-up visit with your Primary Care Provider or Specialist since you were discharged? Yes Do you need any assistance with scheduling or changing your follow-up appointments? Patient alreadyhas an appointment scheduled Education: Patient and family educated on issues/questions related to reason for admission, transition of caretopics, and follow-up needed upon discharge. Targets addressed / completed during outreach: N/A Outreach Outcome: Continue TCM Outreach for remainder of 30 days Care Management partners utilized: N/A Bozena Hirsch RN April 19, 2024 7:16 PM documented in this encounterAcmc Healthcare System07-25-2024 History of Present illness Narrative* Elida Desir RDMS - 04/15/2024 11:30 AM EDT Radiology Service Progress Note PATIENT NAME: Lisa Up DATE OF SERVICE: April 15, 2024 TIME: 2:12 PM PATIENT IDENTITY VERIFICATION COMPLETED USING TWO (2) IDENTIFIERS: Name and Date of confirmedby patient verbally. FALL SCREENING: Has the patient had 2 falls in the last year or 1 fall with injury or currently using an Ambulatory Assistive Device (Walker, Cane, Wheelchair, Crutches, etc.)? Yes, Patient High Riskfor Falls What interventions were put in place to prevent falls during this visit? Instructed Patient to Callfor Help if Needed, Offered Assistance with Transfers/Clothing, Instructed Patient to Remain Seated(Not on Exam Table) Until Exam, and Increased Observations by Caregivers PATIENT GENDER DATA: Female. status: : No status: NO. PATIENT RELEVANT IMPLANT DATA REVIEWED: Not Applicable PATIENT PRESENTS WITH AN IMPLANTABLE OR ATTACHED COLLECTIVE BARGAINING SPECIALIST: No RADIOLOGY DEPARTMENT: Ultrasound PERIPHERAL IV DATA: Not applicable SIGNED BY: Elida Desir RDMS RVT April 15, 2024 2:12 PM documented in this encounterAcmc Healthcare System07-25-2024 History of Present illness Narrative* Dannielle Doll RT(R) - 04/15/2024 11:00 AM EDT Radiology Service Progress Note DATE OF SERVICE: April 15, 2024 TIME: 2:56 PM PATIENT IDENTITY VERIFICATION COMPLETED USING TWO (2) STANDARD IDENTIFIERS: Name and Date of confirmed by patient verbally. FALL SCREENING: Has the patient had 2 falls in the last year or 1 fall with injury or currently using an Ambulatory Assistive Device (Walker, Cane, Wheelchair, Crutches, etc.)? No PATIENT GENDER DATA: Female. status: : No status: NO. PATIENT RELEVANT IMPLANT DATA REVIEWED: Yes PATIENT PRESENTS WITH AN IMPLANTABLE OR ATTACHED COLLECTIVE BARGAINING SPECIALIST: No ALLERGIES: Reviewed and unchanged CONTRAST ALLERGY: NO. EXAM: CT -CONTRAST INDUCED NEPHROPATHY RISK FACTORS: Patient age > 60 years CREATININE: Creatinine Date Value Ref Range Status 04/02/2024 0.81 0.58 - 0.96 mg/dL Final 03/15/2024 0.80 0.58 - 0.96 mg/dL Final 03/04/2024 0.86 0.58 - 0.96 mg/dL Final Estimated Glomerular Filtration Rate Date Value Ref Range Status 04/02/2024 73 >=60 mL/min/1.73m Final Comment: Estimated Glomerular Filtration Rate (eGFR) is calculated using the 2020 CKD-EPI creatinine equation. This equation utilizes serum creatinine, sex, and age as parameters. The creatinine assay has traceable calibration to isotope dilution- mass spectrometry. Refer to KDIGO guidelines for clinical interpretation. In patients with unstable renal function, e.g. those with acute kidney injury, the eGFRmay not accurately reflect actual GFR. eGFR- Date Value Ref Range Status 10/18/2021 >60 Final P.O.C.T. RESULTS: POC done: Yes, See Lab Tab April 15, 2024 TREATMENT: N/A PERIPHERAL IV DATA: Ambulatory: A peripheral IV was started in the Left antecubital site with a Angio cath: 22 gauge. RADIOLOGY DEPARTMENT: CT; Exam(s) Completed: Abdomen/Pelvis SIGNATURE: RT Blanca(R) PATIENT NAME: Lisa Up DATE: April 15, 2024 TIME: 2:56 PM documented in this encounterAcmc Healthcare System07-22-2024 History of Present illness Narrative* Bozena Hirsch RN - 04/12/2024 1:54 PM EDT TRANSITION CARE MANAGEMENT (TCM) FOLLOW-UP NOTE Provider Action/FYI Patient identified by name and date of : YES Spoke to patient Discharge Network Status: [id number]-[id number] (OON) Discharge Summary: Pt discharged from [facility] on 03/26/24. Admitted for: Diarrhea , chills +norovirus Concerns/updates : Pt reports she is feeling about the same since her f/u appointment 04/08. Still has a dull headache. Is taking potassium chloride . States not wanting to take Antivert. Pt checked BP while on the phone , 134/65. Has a CT scan 04/15 as ordered by PCP . Pt is aware with any worsening symtpoms , questions or concerns to call her PCP 's office. 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 plan for next outreach: TCM will continue to follow. NATE Education Ordered -: Alanna Hirsch RN April 12, 2024 1:54 PM documented in this encounterAcmc Healthcare System07-18-2024 Instructions* Patient Instructions* Judith Pickard APRN.CNP - 04/08/2024 1:16 PM EDT 1) Meclizine 25 mg every 8 hours as needed for dizziness 2) Consult physical therapy for vestibular therapy 3) Keep follow up on 05/03/24 documented in this encounterAcmc Healthcare System07-18-2024 History of Present illness Narrative* Judith Pickard APRN.CNP - 04/08/2024 12:56 PM EDT This is a 78 year old female who presents today with: Patient presents with: Weakness: Woozy Hypotension: Increased clonidine on Friday, now bp is running low Edema: feet HISTORY OF PRESENT ILLNESS: Lisa Up is a 78 year old female. Patient presents with: Weakness: Woozy Hypotension: Increased clonidine on Friday, now bp is running low Edema: feet Still some loose stool, 3 x today. Feel woozy in head. Very weak even in bed or in chair- but only if she moves. No fever or chills. + Headache. Sometimes nausea. Feels like legs are swollen. Eye sight off. Home BP readings: 99/55, 100/54, 89/47, 101/49, 99/42, 118/55 Did not get potassium yet, daughter picked up OTC K+ until RX arrives by mail order PAST MEDICAL HISTORY: PAST MEDICAL HISTORY Diagnosis Date ANXIETY STATE NOS 06/07/2005 Arthritis Cancer (HCC) Carpal tunnel syndrome 06/07/2005 Cholelithiasis 06/17/2012 DEPRESSIVE DISORDER NEC 06/07/2005 Diverticulosis of colon (without mention of hemorrhage) Dizziness and giddiness 02/26/2010 GENERAL OSTEOARTHROSIS 06/07/2005 Goiter, unspecified 12/11/2010 Headache(784.0) 02/26/2010 Chronic. 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 Ramírez, severe PAST SURGICAL HISTORY Procedure Laterality Date ABDOMINAL SURGERY HX ARTHRP KNE CONDYLE&PLATU MEDIAL&LAT COMPARTMENTS February2010 Knee replacement, total, Left ARTHRP KNE CONDYLE&PLATU MEDIAL&LAT COMPARTMENTS 07/2010 Knee replacement, total, Right BACK SURGERY HX COLONOSCOPY FLX DX W/COLLJ SPEC WHEN PFRMD 06/05/2011 Colonoscopy COLONOSCOPY FLX DX W/COLLJ SPEC WHEN PFRMD N/A 12/04/2016 ESOPHAGOGASTRODUODENOSCOPY TRANSORAL DIAGNOSTIC N/A 12/04/2016 DEVORA FILTER 2019 INSJ TUNNELED CTR VAD W/SUBQ PORT AGE 5 YR/> 06/05/2022 JOINT REPLACEMENT HX L'SCOPE CHOLECYSTECTOMY 07/30/2022 Dr Gonzalez NEPHRECTOMY PARTIAL 1986 Nephrectomy, partial left (benign) PAST SURGICAL HISTORY OF 06/2018 lumbar burger with wound infection TONSILLECTOMY HX TOTAL ABDOMINAL HYSTERECT W/WO RMVL TUBE OVARY 1985 Hysterectomy, NEISHA VAGINAL HYSTERECTOMY ALLERGIES Covid-19 Vaccine, Mrna, [id number], Lnp-S (Moderna); Adhesive; Erythromycin; Latex; Lisinopril; Nafcillin; Nifedipine; Norvasc [Amlodipine Besylate]; and Wasps MEDICATIONS Current Outpatient Medications Medication Sig cloNIDine HCl (CATAPRES) 0.2 mg tablet Take 1 tablet by mouth two times a day. PARoxetine (PAXIL) 10 mg tablet Take 1 tablet by mouth once daily. psyllium husk (KONSYL) 6 gram pwpk packet Take 1 Packet by mouth two times a day. gabapentin (NEURONTIN) 400 mg capsule Take 1 capsule by mouth every 8 hours for 180 days. carvedilol (COREG) 25 mg tablet Take 1 tablet by mouth two times a day. omeprazole (PRILOSEC) 20 mg capsule Take 1 capsule by mouth two times a day. hydrALAZINE (APRESOLINE) 50 mg tablet Take 1 tablet by mouth two times a day. potassium chloride (K-TAB) 10 mEq tablet Take 1 tablet by mouth two times a day. levothyroxine (SYNTHROID) 75 mcg tablet Take 1 tablet by mouth daily before breakfast. apixaban (ELIQUIS) 5 mg tab(s) Take 1 tablet by mouth two times a day. OTC PRODUCT Super Snooze with Melatonin: Take one capsule by mouth at bedtime as needed. acetaminophen 650 mg CR tablet Take 650 mg by mouth every 8 hours as needed. EPINEPHrine (EPIPEN) 0.3 mg/0.3 mL auto-injector Use as directed multivitamin/iron/folic acid (CENTRUM ULTRA WOMEN'S ORAL) Take 1 tablet by mouth once daily. No current facility-administered medications for this visit. FAMILY HISTORY Problem Relation Age of Onset Heart Mother Cancer Mother lung Heart Father other (Other) Father Heart Brother [place], aneurysm Migraines Daughter Macular Degen Maternal Aunt Social History Tobacco Use Smoking status: Never Smokeless tobacco: Never Vaping Use Vaping Use: Never used Substance Use Topics Alcohol use: No Drug use: No 130/80 sitting, 132/84 standing EXAM: BP 168/70 Pulse 62 Temp 36.3 C (97.3 F) Wt 106.1 kg (234 lb) SpO2 97% BMI 41.45 kg/m PHYSICAL EXAM: Physical Exam Vitals reviewed. Constitutional: Appearance: Normal appearance. She is obese. HENT: Head: Normocephalic. Nose: No congestion or rhinorrhea. Mouth/Throat: Pharynx: Oropharynx is clear. Posterior oropharyngeal erythema present. No oropharyngeal exudate. Eyes: Comments: + nystagmus Cardiovascular: Rate and Rhythm: Normal rate and regular rhythm. Pulses: Normal pulses. Heart sounds: Normal heart sounds. Pulmonary: Breath sounds: Normal breath sounds. Abdominal: General: Bowel sounds are normal. Palpations: Abdomen is soft. Musculoskeletal: Comments: Generalized weakness, moves all ext. Ankles trace edema santos Skin: General: Skin is warm and dry. Neurological: Mental Status: She is alert and oriented to person, place, and time. Comments: Cranial nerves III-XII intact, no finger to nose ataxia Psychiatric: Mood and Affect: Mood normal. Behavior: Behavior normal. LABS: ASSESSMENT/PLAN: 1. BPPV (benign paroxysmal positional vertigo), unspecified laterality - ICD9: 386.11, ICD10: H81.10 Ongoing- + nystagmus - Start meclizine q 8 hr prn - Consult PT for vestibular therapy Discussed treatment plan and patient voices understanding. Patient's questions answered appropriately. Medications and potential side effects were discussed and patient voices understanding. Return to the office as scheduled or as needed for worsening/no improvement. Judith Pickard APRN.CRISIS COUNSELOR documented in this encounterAcmc Healthcare System07-18-2024 Telephone encounter Note * Telephone Encounter - Yarely Lee RN - 04/08/2024 10:11 AM EDT Patient calls for low blood pressure. Nurse triage completed. Protocol recommends see provider within 4 hours. Appointment scheduled. Care advice reviewed. Patient verbalizes understanding. Reason for Disposition [1] Systolic BP 90-110 AND [2] taking blood pressure medications AND [3] dizzy, lightheaded or weak Answer Assessment - Initial Assessment Questions 1. BLOOD PRESSURE:99/55 and recheck 100/53 HR 68 2. ONSET:Right before the call. 3. HOW: At home automatic cuff 4. HISTORY: History of hypertension 5. MEDICINES:Clonidine 0.2 mg daily. Increased recently. 6. PULSE RATE: 68 7. OTHER SYMPTOMS:Patient reports some dizziness (no passing out, no falls, still having diarrhea but not as bad, drinking around 48 ounces of fluids daily). Protocols used: Blood Pressure - [id number] [facility]07-18-[facility]24 Miscellaneous Notes* Telephone Encounter - Yarely Lee RN - 04/08/2024 10:11 AM EDT Patient calls for low blood pressure. Nurse triage completed. Protocol recommends see provider within 4 hours. Appointment scheduled. Care advice reviewed. Patient verbalizes understanding. Reason for Disposition [1] Systolic BP 90-110 AND [2] taking blood pressure medications AND [3] dizzy, lightheaded or weak Answer Assessment - Initial Assessment Questions 1. BLOOD PRESSURE:99/55 and recheck 100/53 HR 68 2. ONSET:Right before the call. 3. HOW: At home automatic cuff 4. HISTORY: History of hypertension 5. MEDICINES:Clonidine 0.2 mg daily. Increased recently. 6. PULSE RATE: 68 7. OTHER SYMPTOMS:Patient reports some dizziness (no passing out, no falls, still having diarrhea but not as bad, drinking around 48 ounces of fluids daily). Protocols used: Blood Pressure - [id number] documented in this encounterAcmc Healthcare System07-15-2024 History of Present illness Narrative* Kim Black RN - 04/05/2024 10:22 AM EDT TRANSITION CARE MANAGEMENT (TCM) FOLLOW-UP NOTE Provider Action/FYI BP better, reports 137/ over something Diarrhea improving, not quite as thin, brown denies red/black/tarry stool Staying hydrated Denies fever, chill, n/v, problems urinating. Pt. to continue monitoring symptoms at home. Pt. To reach out to pcp if symptoms worsen/persist or new symptoms arise. Pt. Will follow up with [facility] regarding potassium chloride refill. Patient identified by name and date of : YES Spoke to patient Discharge Network Status: [id number] (OON) Discharge Summary: Pt discharged from [facility] on 03/26/24. 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 plan for next outreach: No further follow up needed at this time NATE Education Ordered -: No Kim Black RN April 05, 2024 10:22 AM documented in this encounterAcmc Healthcare System07-12-2024 History of Present illness Narrative* Sylvia Lizama MD - 04/02/2024 2:08 PM EDT Patient presents with: Transition Of Care HPI: Patient presents today for office visit for TCM: HOSPITAL/ER FOLLOW UP: Reason for visit: Diarrhea Which facility: [facility] Date of visit: 03/24/24 to 03/27/24 Diagnosis: Vibro and Norovirus on stool cultures. Also admitted with , HYPERTENSION urgency and emergency. Testing done: CT Abd/pelvis no focal acute inflammatory process. Brain CT no acute intracranial process. Stool cultures. Labs. Treatment given: IV fluids and sent home with Clonidine. Current symptoms: Still with diarrhea but states it's getting better. Getting colonoscopy per Dr Crowder. Blood pressures still slightly up at home. Still some headaches. No chest pain or shortness of breath. No palpitations. Getting ct of abd and chest end of the month. Noted her abd is slightly assymetric on standing per her daughter. They just noted it randomly. Some may be positional when I look at her from behind where they note it. MEDICATIONS: Current Outpatient Medications Medication Sig cloNIDine HCl (CATAPRES) 0.1 mg tablet Take 0.1 mg by mouth two times a day. PARoxetine (PAXIL) 10 mg tablet Take 1 tablet by mouth once daily. psyllium husk (KONSYL) 6 gram pwpk packet Take 1 Packet by mouth two times a day. gabapentin (NEURONTIN) 400 mg capsule Take 1 capsule by mouth every 8 hours for 180 days. carvedilol (COREG) 25 mg tablet Take 1 tablet by mouth two times a day. omeprazole (PRILOSEC) 20 mg capsule Take 1 capsule by mouth two times a day. hydrALAZINE (APRESOLINE) 50 mg tablet Take 1 tablet by mouth two times a day. potassium chloride (K-TAB) 10 mEq tablet Take 1 tablet by mouth two times a day. levothyroxine (SYNTHROID) 75 mcg tablet Take 1 tablet by mouth daily before breakfast. apixaban (ELIQUIS) 5 mg tab(s) Take 1 tablet by mouth two times a day. OTC PRODUCT Super Snooze with Melatonin: Take one capsule by mouth at bedtime as needed. acetaminophen 650 mg CR tablet Take 650 mg by mouth every 8 hours as needed. EPINEPHrine (EPIPEN) 0.3 mg/0.3 mL auto-injector Use as directed multivitamin/iron/folic acid (CENTRUM ULTRA WOMEN'S ORAL) Take 1 tablet by mouth once daily. No current facility-administered medications for this visit. ALLERGIES: ALLERGIES Allergen Reactions Covid-19 Vaccine, M* Anaphylaxis Adhesive Rash Blisters and dermatitis from op site dressing and tape Erythromycin Rash, GI Upset Urticarial rash, seen in [place] [facility] Latex Swelling Lisinopril Swelling Nafcillin Itching 06/29/21 negative penicillin skin testing. Passed oral amoxicillin challenge. Nifedipine Rash Norvasc [Amlodipine* Swelling Wasps Mental Status Change, Rash PAST MEDICAL HISTORY Diagnosis Date ANXIETY STATE NOS 06/07/2005 Arthritis Cancer (HCC) Carpal tunnel syndrome 06/07/2005 Cholelithiasis 06/17/2012 DEPRESSIVE DISORDER NEC 06/07/2005 Diverticulosis of colon (without mention of hemorrhage) Dizziness and giddiness 02/26/2010 GENERAL OSTEOARTHROSIS 06/07/2005 Goiter, unspecified 12/11/2010 Headache(784.0) 02/26/2010 Chronic. 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 Ramírez, severe PAST SURGICAL HISTORY Procedure Laterality Date ABDOMINAL SURGERY HX ARTHRP KNE CONDYLE&PLATU MEDIAL&LAT COMPARTMENTS February2010 Knee replacement, total, Left ARTHRP KNE CONDYLE&PLATU MEDIAL&LAT COMPARTMENTS 07/2010 Knee replacement, total, Right BACK SURGERY HX COLONOSCOPY FLX DX W/COLLJ SPEC WHEN PFRMD 06/05/2011 Colonoscopy COLONOSCOPY FLX DX W/COLLJ SPEC WHEN PFRMD N/A 12/04/2016 ESOPHAGOGASTRODUODENOSCOPY TRANSORAL DIAGNOSTIC N/A 12/04/2016 DEVORA FILTER 2019 INSJ TUNNELED CTR VAD W/SUBQ PORT AGE 5 YR/> 06/05/2022 JOINT REPLACEMENT HX L'SCOPE CHOLECYSTECTOMY 07/30/2022 Dr Gonzalez NEPHRECTOMY PARTIAL 1986 Nephrectomy, partial left (benign) PAST SURGICAL HISTORY OF 06/2018 lumbar burger with wound infection TONSILLECTOMY HX TOTAL ABDOMINAL HYSTERECT W/WO RMVL TUBE OVARY 1985 Hysterectomy, NEISHA VAGINAL HYSTERECTOMY FAMILY HISTORY Problem Relation Age of Onset Heart Mother Cancer Mother lung Heart Father other (Other) Father Heart Brother [place], aneurysm Migraines Daughter Macular Degen Maternal Aunt Social History Tobacco Use Smoking status: Never Smokeless tobacco: Never Vaping Use Vaping Use: Never used Substance Use Topics Alcohol use: No Drug use: No Reviewed current medications, allergies, past medical history, surgical history, family history andsocial history today. REVIEW OF SYSTEMS All other reviewed and negative other than HPI. VITALS: BP 152/66 Pulse 76 Ht 160 cm (5' 3) Wt 106.1 kg (234 lb) SpO2 96% BMI 41.45 kg/m Last 4 Encounter Wt Readings: Date: Wt: 03/29/2024 106.3 kg (234 lb 6.4 oz) 03/04/2024 105.7 kg (233 lb) 02/19/2024 106.1 kg (234 lb) 02/05/2024 108 kg (238 lb) PHYSICAL EXAMINATION: General appearance: Well appearing, alert, in no acute distress, well-hydrated, well nourished. Skin: Skin color, texture, turgor normal, no suspicious rashes or lesions Head: Normocephalic, no masses, lesions, tenderness or abnormalities Lungs: Lungs clear to auscultation. No wheezing, rhonchi, rales Heart: RRR without murmur, gallop, or rubs. No ectopy Abdomen: Normal abdominal exam, Abdomen soft, non-tender. Bowel sounds normal. No masses, organomegaly Extremities: No deformities, edema, skin discoloration, clubbing or cyanosis. Good capillary refill. Musculoskeletal: No joint swelling, deformity, or tenderness Also notes a soft tissue mass that is nickel sized on her left forearm. Not tender. ASSESSMENT/PLAN: 1. Diarrhea of infectious origin - ICD9: 009.2, ICD10: A09 (primary diagnosis) -follow with gi. Appears to be improving. 2. Other primary thrombophilia (HCC) - ICD9: 289.81, ICD10: D68.59 - per heme onc. Follow. 3. Body mass index (BMI) 40.0-44.9, adult (HCC) - ICD9: V85.41, ICD10: Z68.41 - stable. 4. Essential hypertension - ICD9: 401.9, ICD10: I10 - increase clonodine. Follow up closely. - CLONIDINE HCL 0.2 MG TABLET 5. Hypertensive urgency - ICD9: 401.9, ICD10: I16.0 - doing better Increase meds as above. - CLONIDINE HCL 0.2 MG TABLET - COMPLETE BLOOD COUNT AND DIFFERENTIAL - BASIC METABOLIC PANEL - CLONIDINE HCL 0.2 MG TABLET 6. Chronic kidney disease, unspecified CKD stage - ICD9: 585.9, ICD10: N18.9 - follow albs. 7. Hypothyroidism, unspecified type - ICD9: 244.9, ICD10: E03.9 - recently checked. 8. 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 B-cell lymphoma, unspecified B-cell lymphoma type, unspecified body region (HCC) - ICD9: 202.80,ICD10: C85.10 - as above. 10. Soft tissue mass - ICD9: 729.99, ICD10: M79.89 - check us - US EXTREMITY MASS/FLUID COLLECTION LEFT Sylvia Lizama MD RTO in four weeks to reassess bp. documented in this encounterAcmc Healthcare System07-12-2024 History of Present illness Narrative* Zeny Crowder MD - 04/02/2024 11:00 AM EDT HISTORY AND PHYSICAL Lisa Up 1945 REFERRING PHYSICIAN: Judith Pickard A* CHIEF COMPLAINT: Consult (Diarrhea, abd cramping) HPI: The patient is a 78 year old female referred for endoscopy. Lisa notes the following GI complaints: Lisa denies abdominal pain.. Lisa notes diarrhea. Lisa denies constipation. Lisa denies a change in bowel habits. Lisa denies melena. Lisa denies bright red blood per rectum. Lisa denies hemorrhoids. Diarrhea: - on and off for a month - currently taking psyllium husk, pt states it is not helping - 4 BM's daily - pt not eating and drinking as much due to increased BM's - dark BM's but not black - appointment with Dr. Crowder in 2 weeks - no nausea or vomiting - generalized abdominal cramps and bloating intermittently typically right before BM - drinking a lot of water and gatorade The patient notes no history of upper GI complaints. Lisa has undergone prior endoscopy. November 2016 The patient is being seen by me today at the request of Dr. Pickard for my opinion and advice regarding Diarrhea, unspecified type. PAST MEDICAL HISTORY Diagnosis Date ANXIETY STATE NOS 06/07/2005 Arthritis Cancer (HCC) Carpal tunnel syndrome 06/07/2005 Cholelithiasis 06/17/2012 DEPRESSIVE DISORDER NEC 06/07/2005 Diverticulosis of colon (without mention of hemorrhage) Dizziness and giddiness 02/26/2010 GENERAL OSTEOARTHROSIS 06/07/2005 Goiter, unspecified 12/11/2010 Headache(784.0) 02/26/2010 Chronic. 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 Ramírez, severe PAST SURGICAL HISTORY Procedure Laterality Date ABDOMINAL SURGERY HX ARTHRP KNE CONDYLE&PLATU MEDIAL&LAT COMPARTMENTS February2010 Knee replacement, total, Left ARTHRP KNE CONDYLE&PLATU MEDIAL&LAT COMPARTMENTS 07/2010 Knee replacement, total, Right BACK SURGERY HX COLONOSCOPY FLX DX W/COLLJ SPEC WHEN PFRMD 06/05/2011 Colonoscopy COLONOSCOPY FLX DX W/COLLJ SPEC WHEN PFRMD N/A 12/04/2016 ESOPHAGOGASTRODUODENOSCOPY TRANSORAL DIAGNOSTIC N/A 12/04/2016 DEVORA FILTER 2018 INSJ TUNNELED CTR VAD W/SUBQ PORT AGE 5 YR/> 06/05/2022 JOINT REPLACEMENT HX L'SCOPE CHOLECYSTECTOMY 07/30/2022 Dr Gonzalez NEPHRECTOMY PARTIAL 1986 Nephrectomy, partial left (benign) PAST SURGICAL HISTORY OF 06/2018 lumbar burger with wound infection TONSILLECTOMY HX TOTAL ABDOMINAL HYSTERECT W/WO RMVL TUBE OVARY 1985 Hysterectomy, NEISHA VAGINAL HYSTERECTOMY Current Outpatient Medications Medication Sig PARoxetine (PAXIL) 10 mg tablet Take 1 tablet by mouth once daily. psyllium husk (KONSYL) 6 gram pwpk packet Take 1 Packet by mouth two times a day. gabapentin (NEURONTIN) 400 mg capsule Take 1 capsule by mouth every 8 hours for 180 days. carvedilol (COREG) 25 mg tablet Take 1 tablet by mouth two times a day. omeprazole (PRILOSEC) 20 mg capsule Take 1 capsule by mouth two times a day. hydrALAZINE (APRESOLINE) 50 mg tablet Take 1 tablet by mouth two times a day. potassium chloride (K-TAB) 10 mEq tablet Take 1 tablet by mouth two times a day. levothyroxine (SYNTHROID) 75 mcg tablet Take 1 tablet by mouth daily before breakfast. apixaban (ELIQUIS) 5 mg tab(s) Take 1 tablet by mouth two times a day. OTC PRODUCT Super Snooze with Melatonin: Take one capsule by mouth at bedtime as needed. acetaminophen 650 mg CR tablet Take 650 mg by mouth every 8 hours as needed. EPINEPHrine (EPIPEN) 0.3 mg/0.3 mL auto-injector Use as directed multivitamin/iron/folic acid (CENTRUM ULTRA WOMEN'S ORAL) Take 1 tablet by mouth once daily. No current facility-administered medications for this visit. ALLERGIES: Covid-19 Vaccine, Mrna, [id number], Lnp-S (Moderna); Adhesive; Erythromycin; Latex; Lisinopril; Nafcillin; Nifedipine; Norvasc [Amlodipine Besylate]; and Wasps PERSONAL HISTORY: Social History Tobacco Use Smoking status: Never Smokeless tobacco: Never Vaping Use Vaping Use: Never used Substance Use Topics Alcohol use: No Drug use: No FAMILY HISTORY: FAMILY HISTORY Problem Relation Age of Onset Heart Mother Cancer Mother lung Heart Father other (Other) Father Heart Brother [place], aneurysm Migraines Daughter Macular Degen Maternal Aunt REVIEW OF SYMPTOMS: The review of systems data was entered by the nurse and reviewed by mn Nursing Notes: Ana Hernandez RN 03/29/2024 2:08 PM Signed REVIEW OF SYSTEMS: General: The patient NOTES fatigue, denies weight loss, denies weight gain, denies feeling hot, anddenies feelings of cold. Eyes: The patient denies glaucoma, denies eye injury/surgery, does not wear glasses or contacts. Ear/Nose/Throat: The patient NOTES allergies, denies hayfever, denies ear infections, and denies bloody noses. Cardiovascular: The patient denies chest pain, denies heart disease, NOTES high blood pressure,denies cardiac stent, denies prior heart attack, denies irregular heart beat, denies high cholesterol, denies poor circulation, denies heart failure, other cardiac issues, NOTED claudication, NOTES cold feet, denies peripheral arterial stent. Respiratory: The patient denies tuberculosis, denies pneumonia, denies frequent cough, denies pulmonary embolism, denies shortness of breath, and denies coughing up blood. Gastrointestinal: The patient denies difficulty swallowing, denies acid reflux, denies ulcers, denies vomiting, denies jaundice/hepatitis, NOTES gallbladder problems, denies black or tarry stools, NOTES hemorrhoids, denies bleeding from rectum, denies diverticulitis, NOTES constipation, denies diarrhea, denies loss of stool control, and denies hernias. Kidney/Bladder: The patient denies kidney stones, NOTES urine infections, and denies bloody urine. Skin: The patient denies a history of skin cancer, denies bleeding/changing moles, and denies a history of skin rash. Neurologic: The patient denies a history of epilepsy/convulsions, NOTES headaches, denies head/spinal injuries, and denies stroke/TIA. Psychiatric: The patient denies psychiatric medications, denies depression, and denies voices, denies substance abuse. Endocrine: The patient NOTES thyroid disorders, denies diabetes, and denies hormonal problems. Hematologic: The patient denies a history of bruising, denies bleeding, and denies anemia, denies blood clots. Infections: The patient denies a history of measles and mumps, denies rheumatic fever, and denies sexually transmitted diseases. Musculoskeletal: The patient NOTES back pain/injury, NOTES back problems, denies sciatica, denies knee/foot trouble, denies arthritis, or denies gout. When was patient's last Mammogram screening? 07/08/2023 Last Colonoscopy: 12/04/2016 FRANCESCO Bonilla Billie, RN 03/29/2024 2:45 PM Signed This Nurse reviewed and provided patient with copy of written instructions. The patient verbalized understanding and was given a number for questions. Ana Hernandez RN PHYSICAL EXAMINATION: General: The patient is 78 year old female, well nourished, well hydrated in no acute distress. Thepatient is oriented to time, place, and person. VITALS: Blood pressure 136/84, pulse 78, temperature 36.6 C (97.9 F), height 160 cm (5' 3), nyhpdd446.3 kg (234 lb 6.4 oz), SpO2 94%. Body mass index is 41.52 kg/m . HEENT: Normal cephalic, ataumatic, pupils are equally round, sclera are anicteric, mucous membranesare moist, oropharynx is clear. Neck has no masses, asymmetry or lymphadenopathy. Thyroid is unremarkable. Respiratory: Clear to auscultation and percussion. Normal respiratory excursion and pattern. Cardiac: Examination is regular rate and rhythm. Abdominal exam: Soft, nontender, with no palpable masses. No hepatosplenomegaly. No palpable hernias. Rectal exam: exam deferred Extremities: no clubbing, cyanosis or edema. No adenopathy. Other: LABORATORY VALUES: As Noted RADIOLOGIC STUDIES: As Noted Assessment IMPRESSION: Diarrhea, unspecified type PLAN: I plan to perform lower endoscopy. We discussed the risks and benefits of the planned endoscopy. I have informed the patient that complications can occur including failure to complete the endoscopy and perforation. The patient had the opportunity to ask questions concerning the planned endoscopy. My staff has also explained the procedure to the patient in understandable terms and has given the patient printed material concerning the procedure. The patient freely consents to surgery. I plan to use Miralax bowel preperation for endoscopy Diagnoses: (R19.7) Diarrhea, unspecified type My findings have been communicated to Dr. Pickard via shared medical record. This note will be forwarded to Dr. Sylvia Lizama MD. Return to Clinic: The patient is instructed to follow-up with me 1 week post operatively. Zeny Crowder III, MD documented in this encounterA[facility] Telephone encounter Note * Telephone Encounter - Ebony Caro OCCA - 03/30/2024 11:44 AM EDT TC to patient who is informed of below. Patient to call in one week with BP readings. SMITA Cao [facility]07-09-[facility] Miscellaneous Notes* Telephone Encounter - Ebony Caro OCCA - 03/30/2024 11:44 AM EDT TC to patient who is informed of below. Patient to call in one week with BP readings. SMITA Cao * Telephone Encounter - Sylvia Lizama MD - 03/30/2024 11:34 AM EDT Ok better. Call in bp list in one week * Telephone Encounter - Tima Benavides RN - 03/30/2024 11:01 AM EDT Pt called in with BP 140/74 HR 66. Pt denies any dizziness or headache. States she feels fine rightnow. * Telephone Encounter - Glo Low LPN - 03/30/2024 9:38 AM EDT Phoned patient went over notes from Dr Lizama with understanding. She will call bp reading back in few hours. * Telephone Encounter - Sylvia Lizama MD - 03/30/2024 9:27 AM EDT Take meds this am and recheck bp in a few hours after. Call it back in. * Telephone Encounter - Glo Low LPN - 03/30/2024 8:57 AM EDT Patient calling she said was told to call Dr Lizama with her blood pressure reading this morning. Shechecked at 830 am was 197/94 she did not write down the pulse, has not taken any of her medicationsyet this morning. Reminder of appt on Friday with PCP given. documented in this encounterA[facility]07-[facility]-2024 Telephone encounter Note * Telephone Encounter - Sylvia Lizama MD - 03/30/2024 11:34 AM EDT Ok better. Call in bp list in one week [facility]-09[facility] Telephone encounter Note* Telephone Encounter - Tima Benavides RN - 03/30/2024 11:01 AM EDT Pt called in with BP 140/74 HR 66. Pt denies any dizziness or headache. States she feels fine rightnow. [facility] Telephone encounter Note* Telephone Encounter - Glo Low LPN - 03/30/2024 9:38 AM EDT Phoned patient went over notes from Dr Lizama with understanding. She will call bp reading back in few hours. [facility] Telephone encounter Note* Telephone Encounter - Sylvia Lizama MD - 03/30/2024 9:27 AM EDT Take meds this am and recheck bp in a few hours after. Call it back in. [facility] Telephone encounter Note* Telephone Encounter - Glo Low LPN - 03/30/2024 8:57 AM EDT Patient calling she said was told to call Dr Lizama with her blood pressure reading this morning. Shechecked at 830 am was 197/94 she did not write down the pulse, has not taken any of her medicationsyet this morning. Reminder of appt on Friday with PCP given. [facility] Nurse Note* Ana Hernandez RN - 03/29/2024 2:44 PM EDT This Nurse reviewed and provided patient with copy of written instructions. The patient verbalized understanding and was given a number for questions. Ana Hernandez RN [facility]07-08[facility] Nurse Note* Ana Hernandez RN - 03/29/2024 2:44 PM EDT This Nurse reviewed and provided patient with copy of written instructions. The patient verbalized understanding and was given a number for questions. Ana Hernandez RN * Ana Hernandez RN - 03/29/2024 2:08 PM EDT REVIEW OF SYSTEMS: General: The patient NOTES fatigue, denies weight loss, denies weight gain, denies feeling hot, anddenies feelings of cold. Eyes: The patient denies glaucoma, denies eye injury/surgery, does not wear glasses or contacts. Ear/Nose/Throat: The patient NOTES allergies, denies hayfever, denies ear infections, and denies bloody noses. Cardiovascular: The patient denies chest pain, denies heart disease, NOTES high blood pressure,denies cardiac stent, denies prior heart attack, denies irregular heart beat, denies high cholesterol, denies poor circulation, denies heart failure, other cardiac issues, NOTED claudication, NOTES cold feet, denies peripheral arterial stent. Respiratory: The patient denies tuberculosis, denies pneumonia, denies frequent cough, denies pulmonary embolism, denies shortness of breath, and denies coughing up blood. Gastrointestinal: The patient denies difficulty swallowing, denies acid reflux, denies ulcers, denies vomiting, denies jaundice/hepatitis, NOTES gallbladder problems, denies black or tarry stools, NOTES hemorrhoids, denies bleeding from rectum, denies diverticulitis, NOTES constipation, denies diarrhea, denies loss of stool control, and denies hernias. Kidney/Bladder: The patient denies kidney stones, NOTES urine infections, and denies bloody urine. Skin: The patient denies a history of skin cancer, denies bleeding/changing moles, and denies a history of skin rash. Neurologic: The patient denies a history of epilepsy/convulsions, NOTES headaches, denies head/spinal injuries, and denies stroke/TIA. Psychiatric: The patient denies psychiatric medications, denies depression, and denies voices, denies substance abuse. Endocrine: The patient NOTES thyroid disorders, denies diabetes, and denies hormonal problems. Hematologic: The patient denies a history of bruising, denies bleeding, and denies anemia, denies blood clots. Infections: The patient denies a history of measles and mumps, denies rheumatic fever, and denies sexually transmitted diseases. Musculoskeletal: The patient NOTES back pain/injury, NOTES back problems, denies sciatica, denies knee/foot trouble, denies arthritis, or denies gout. When was patient's last Mammogram screening? 07/08/2023 Last Colonoscopy: 12/04/2016 Ana Hernandez RN documented in this encounterAcmc [facility]07-08-2024 Nurse Note* Ana Hernandez RN - 03/29/2024 2:08 PM EDT REVIEW OF SYSTEMS: General: The patient NOTES fatigue, denies weight loss, denies weight gain, denies feeling hot, anddenies feelings of cold. Eyes: The patient denies glaucoma, denies eye injury/surgery, does not wear glasses or contacts. Ear/Nose/Throat: The patient NOTES allergies, denies hayfever, denies ear infections, and denies bloody noses. Cardiovascular: The patient denies chest pain, denies heart disease, NOTES high blood pressure,denies cardiac stent, denies prior heart attack, denies irregular heart beat, denies high cholesterol, denies poor circulation, denies heart failure, other cardiac issues, NOTED claudication, NOTES cold feet, denies peripheral arterial stent. Respiratory: The patient denies tuberculosis, denies pneumonia, denies frequent cough, denies pulmonary embolism, denies shortness of breath, and denies coughing up blood. Gastrointestinal: The patient denies difficulty swallowing, denies acid reflux, denies ulcers, denies vomiting, denies jaundice/hepatitis, NOTES gallbladder problems, denies black or tarry stools, NOTES hemorrhoids, denies bleeding from rectum, denies diverticulitis, NOTES constipation, denies diarrhea, denies loss of stool control, and denies hernias. Kidney/Bladder: The patient denies kidney stones, NOTES urine infections, and denies bloody urine. Skin: The patient denies a history of skin cancer, denies bleeding/changing moles, and denies a history of skin rash. Neurologic: The patient denies a history of epilepsy/convulsions, NOTES headaches, denies head/spinal injuries, and denies stroke/TIA. Psychiatric: The patient denies psychiatric medications, denies depression, and denies voices, denies substance abuse. Endocrine: The patient NOTES thyroid disorders, denies diabetes, and denies hormonal problems. Hematologic: The patient denies a history of bruising, denies bleeding, and denies anemia, denies blood clots. Infections: The patient denies a history of measles and mumps, denies rheumatic fever, and denies sexually transmitted diseases. Musculoskeletal: The patient NOTES back pain/injury, NOTES back problems, denies sciatica, denies knee/foot trouble, denies arthritis, or denies gout. When was patient's last Mammogram screening? 07/08/2023 Last Colonoscopy: 12/04/2016 Ana Hernandez RN [facility]07-[facility] History of Present illness Narrative* Talia Silver LPN - 03/29/2024 1:20 PM EDT Patient will call in morning. * Sylvia Lizama MD - 03/29/2024 11:50 AM EDT Call with bp in am. * Bozena Hirsch RN - 03/29/2024 10:51 AM EDT TRANSITIONAL CARE MANAGEMENT (TCM) COMMUNITY MONITORING PROGRAM Provider Action/FYI: Pt reports feeling some improvement of GI symptoms. Pt noted to be positive at [facility] for Norovirus. States stools becoming a bit more solid, still having 2-3 episodes daily of loose stools with some abdominal cramping. C/o headaches - states they are improving from the hospital but still having. pt states she is trying to stay hydrated. BP this AM 177/80's - states this is improved from the hospital also, was in the 240's /??? Pt confirms she resumed Coreg , taking Hydralazine BID . Denies any chest pain , SOB . PCP f/u 04/02, advised pt will also FYI PCP 's office of ongoing increased BP 's. 03/29 gen surg f/u SUMMARY: Discharge Network Status: [facility] (OON) Discharge Pt discharged from [facility] on 03/26/24. Admitted for: Diarrhea , chills Copied from Care everywhere : LISA UP, is a 78-year-old female with history of hypertension, GERD, DVT, hypothyroidism morbid obesity, RLS who presented to [facility] ED 03/24/2024 due to diarrhea and general weakness. She has had diarrhea for 2 months and is awaiting outpatient surgery consult for colonoscopy schedule next week however she is becoming progressively weaker prompting her ED arrival today. In the ED lab workup fairly benign but patient had consistent significantly elevated blood pressure refractory to multiple rounds of IV medication prompting hospitalist to be contacted for admission for refractory hypertension and generalized weakness. Patient evaluated at bedside and reports the weakness worsening over the past couple of months, has about 3 episodes of diarrhea a day but has been thickening up somewhat. Does report she has had some headaches over the past 2 months and on Friday felt very suspicious in her house and unlike herself that is since resolved. Denies fevers or chills, no abdominal pain, sometimes feels like her eyes hurt but denies any overt changes in vision, has some chronic swelling in lower extremities. TCM Home Visit Referral Source of Stratification: TCM HUB Hospital Admission Status: Discharged Readmission Risk Score: N/A Patient's zip code: N/A Is zip code within program service area: No Patient meets program referral criteria: No Patient does not qualify for High Risk TCM Home Visit program due to: Readmission Risk Score does not meet criteria Disposition: Patient does not qualify for HRTIC, will provide TCM outreach follow-up for 30-days Bozena Hirsch RN March 29, 2024 10:57 AM Contact made with patient: Yes Hi my name is Bozena Hirsch RN and I am calling from the [facility] on behalf of yourPCP, Sylvia Lizama MD I understand you were recently in the hospital so I am calling to check in with you to ensure you are feeling well now that you're home. May I ask you a few questions related to your hospital stay and well-being? Yes Contact with patient post discharge, spoke to patient. Patient identified by name and . Do you feel your health is BETTER, WORSE, or the SAME since leaving the hospital? Better ACTION TAKEN: Patient indicated symptoms are better or same, no action required. Continue outreach. MEDICATIONS: Many patients have questions or concerns about their medications once they are home. Do you have any questions about taking your medications or which medication you should be on? pt states she was rxanother medication for her stomach and for BP while at [facility]. Resumed hydralazine BID and Coreg. Do you need any medication refills at this time, including any of the medications you might take only when needed? No ACTION TAKEN: No action required For RNs or Pharmacy completing outreach ONLY, was a medication review completed? Yes partial review of meds completed. new rx at discharge : Discharge Orders/Prescriptions Prescriptions: New clonidine HCl 0.1 mg Tablet 0.1 mg PO BID 30 Days Qty: 60 0RF SOCIAL: We would like to make sure you have what you need so that your basics needs are met - including your personal safety, food, housing and medications. Would you like to speak with a social work meat team member to help give you support for any of these needs? Not assessed It can be normal to feel anxious or down during a time like this. Would you like to talk to a mental health professional about how you have been feeling? Not assessed ACTION TAKEN: No action taken DISCHARGE INTRUCTIONS: Your discharge instructions / After Visit Summary (AVS) are important in guiding you through the recovery process. Do you have any questions related to your discharge instructions? No Do you have all the necessary equipment and supplies at home? Yes ACTION TAKEN: No action required I would like to help you schedule a hospital follow-up virtual or telephone visit with your PCP. This is a great way for you to connect with your provider to ensure you have safely transitioned home.If you are agreeable, I will send your request to a appointment scheduler who will contact and assist you with that appointment. This will give you an opportunity to ask any questions or address any concerns youmay have with your PCP. Inform the patient that if they have any questions or concerns prior to that appointment, to call their PCP's office right away. ACTION TAKEN: No action required, patient already has an appointment scheduled. Your doctor would like us to remind you of the recommendations regarding the coronavirus (Covid19) outbreak: Avoid public places as much as possible. Avoid close contact (within 6 feet) with others you don t live with, especially if they are sick. Stay home if you are sick. Wash your hands regularly for at least 20 seconds with soap and water. Wear a cloth mask in public places to help reduce community spread. Do not go to your Doctor s office unless instructed to do so. For any non- emergency symptoms, call your Doctor s office to get instructions on how to manage (we might recommend a telephone or virtualvisit). For emergency symptoms, proceed to Emergency Department as usual but inform them of cough and fever symptoms UBALDO if present (or call on the way if possible). NATE Education Ordered -: No Bozena Hirsch RN March 29, 2024 11:02 AM documented in this encounterAcmc [facility] System07-05-2024 [facility] Medical Records Department [address] [place] [id number] Discharge Summary 03/26/24 1249 MR#: [id number] Acct: [id number] Name: LISA UP Rep #: [id number] : 1945 78 From: Kenyon Joiner MD PCP: Dr. Sylvia Lizama MD Status:[facility]M IN [id number] Prov[facility] Date of Admission: 03/24/24 Primary Care Physician: Dr. Sylvia Lizama MD Reason For Visit: HTN URGENCY VS EMERGENCY Diagnosis Discharge Diagnosis (1) Hypertension: Status: Chronic Code(s): I10 - Essential (primary) hypertension (2) Morbid obesity with BMI of 40.0-44.9, adult: Status: Chronic Code(s): E66.01 - Morbid (severe) obesity due to excess calories; Z68.41 - Body mass index [BMI] 40.0-44.9, adult (3) Weakness: Status: Acute Code(s): R53.1 - Weakness Medications at Discharge Home Medications potassium chloride 10 mEq tablet,extended release(part/cryst) 10 meq PO BID supplement 06/07/18 multivitamin with folic acid 400 mcg tablet (Thera) 1 tab PO DAILY vitamin 08/01/18 apixaban 5 mg tablet 5 mg PO BID blood thinner 08/13/20 levothyroxine 75 mcg tablet 75 mcg PO DAILY thyroid 07/30/22 biotin 1 tab PO DAILY supplement 03/24/24 carvedilol 25 mg tablet 25 mg PO BID blood pressure 03/24/24 gabapentin 400 mg capsule 400 mg PO TID nerve pain 03/24/24 hydralazine 50 mg tablet 50 mg PO BID blood pressure 03/24/24 paroxetine HCl 10 mg tablet 10 mg PO DAILY mental health 03/24/24 clonidine HCl 0.1 mg tablet 0.1 mg PO BID 30 days #60 tabs 03/26/24 Hospital Course Operations None Procedures None Summary of Care Provided Minutes Spent on Discharge: 35 Hospital Course: Per HPI: LISA UP, is a 78-year-old female with history of hypertension, GERD, DVT, hypothyroidism morbid obesity, RLS who presented to [facility] ED 03/24/2024 due to diarrhea and general weakness. She has had diarrhea for 2 months and is awaiting outpatient surgery consult for colonoscopy schedule next week however she is becoming progressively weaker prompting her ED arrival today. In the ED lab workup fairly benign but patient had consistent significantly elevated blood pressure refractory to multiple rounds of IV medication prompting hospitalist to be contacted for admission for refractory hypertension and generalized weakness. Patient evaluated at bedside and reports the weakness worsening over the past couple of months, has about 3 episodes of diarrhea a day but has been thickening up somewhat. Does report she has had some headaches over the past 2 months and on Friday felt very suspicious in her house and unlike herself that is since resolved. Denies fevers or chills, no abdominal pain, sometimes feels like her eyes hurt but denies any overt changes in vision, has some chronic swelling in lower extremities. Hospital Course: 1. Generalized weakness with chronic diarrhea???78-year-old female presented to the hospital with continued diarrhea as well as worsening headache. She says that she has been having 4-5 bowel movements every day that were almost pure liquid for the last couple of months. Initially she would take Imodium which would make her constipated so then she would get a MiraLAX which would give her the diarrhea again. She denies any travel or sick contacts recently and the only thing she can remember was eating a salad in August that made her unwell very quickly. She states that she had seen her doctor and had stool studies done as an outpatient that showed an infectious etiology but she could not say what and are stool samples demonstrated norovirus and vibrio species. She is able to eat and states that her bowel movements have decreased to about twice a day and no longer immediately after she eats and they are not liquid. I discussed with her the possibility for discharge today she expressed understanding of the risk benefits of going home and would like to go home today. I do recommend that she follow-up with her PCP in 3 to 5 days. 2. Hypertensive urgency???blood pressures on admission were over 200 systolic. TSH and cortisol were unremarkable. She states that she has been taking her medications as indicated and she was started on clonidine point 1 mg p.o. twice daily which has helped control her blood pressures. Will continue with the clonidine on discharge as well as her other baseline blood pressure medications and I do recommend that she follow-up with her PCP in 3 to 5 days for further evaluation monitoring and medication adjustment. 3. Hypothyroidism, anxiety, depression, history of DVT are all chronic medical conditions which complicate her care. Her home medications were continued where appropriate. Weight / BMI Weight Weight: 232 lb 5.875 oz Body Mass Index (BMI) 42.5 ABG / Lab / Microbiology Data 03/26/24 06:22 03/26/24 06:22 Laboratory: L (more content not included)...[facility]07-03-2024 Telephone encounter Note* Telephone Encounter - Gini Ayala APRN.CNP - 03/24/2024 12:34 PM EDT Noted. Gini Ayala APRN.CNP [facility]07-03-2024 Miscellaneous Notes* Telephone Encounter - Gini Ayala APRN.CNP - 03/24/2024 12:34 PM EDT Noted. Gini Ayala APRN.CNP * Telephone Encounter - Tima Benavides RN - 03/24/2024 8:56 AM EDT Pt called and is notified of providers results and instructions. Pt voices understanding. Pt statesher kids are going to pick her up and take her to [facility]. I let her know provider would look for reports. Tima Benavides RN * Telephone Encounter - Gini Ayala APRN.LEONCIO - 03/24/2024 8:29 AM EDT If she is feeling more weak, then I would consider going into the ER, as she may need additional labwork and hydration. Gini Ayala APRN.LEONCIO * Telephone Encounter - Hui Solomon LPN - 03/24/2024 8:03 AM EDT Patient calling. States that she feels like she is getting worse. She is more weak and fatigued especially if she eats. She is still having diarrhea. Thinks that she even possibly had hallucinations.She is scheduled with general surgery on 03/29 but she is not sure she can wait that long. Please advise. documented in this encounterAcmc [facility] System07-03-2024 Telephone encounter Note * Telephone Encounter - Tima Benavides RN - 03/24/2024 8:56 AM EDT Pt called and is notified of providers results and instructions. Pt voices understanding. Pt statesher kids are going to pick her up and take her to [facility]. I let her know provider would look for reports. Tima Benavides RN [facility]07-03-2024 Telephone encounter Note* Telephone Encounter - Gini Ayala APRN.CNP - 03/24/2024 8:29 AM EDT If she is feeling more weak, then I would consider going into the ER, as she may need additional labwork and hydration. Gini Ayala APRN.CRISIS COUNSELOR [facility]07-03-2024 Telephone encounter Note* Telephone Encounter - Hui Solomon LPN - 03/24/2024 8:03 AM EDT Patient calling. States that she feels like she is getting worse. She is more weak and fatigued especially if she eats. She is still having diarrhea. Thinks that she even possibly had hallucinations.She is scheduled with general surgery on 03/29 but she is not sure she can wait that long. Please advise. [facility]07-02-2024 Telephone encounter Note* Telephone Encounter - Gorge Melendrez LPN - 03/23/2024 2:19 PM EDT Pt notified. She verbalized understanding. Gorge Melendrez LPN [facility]07-02-2024 Miscellaneous Notes* Telephone Encounter - Gorge Melendrez LPN - 03/23/2024 2:19 PM EDT Pt notified. She verbalized understanding. Gorge Melendrez LPN * Telephone Encounter - Gini Ayala APRN.CNP - 03/23/2024 1:55 PM EDT Can please let patient know that I received her stool studies back. The specific tests were all negative; however, it did show some white blood cells and inflammation in the colon. Please plan on follow-up, as planned, as she will likely need colonoscopy to further assess the colon for causes of inflammation. Gini Ayala APRN.CNP documented in this encounterAcmc Healthcare System07-02-2024 Telephone encounter Note * Telephone Encounter - Gini Ayala APRN.CNP - 03/23/2024 1:55 PM EDT Can please let patient know that I received her stool studies back. The specific tests were all negative; however, it did show some white blood cells and inflammation in the colon. Please plan on follow-up, as planned, as she will likely need colonoscopy to further assess the colon for causes of inflammation. Gini Ayala APRN.CNP [facility]06-28-2024 Telephone encounter Note* Telephone Encounter - Gorge Melendrez LPN - 03/19/2024 1:45 PM EDT Prescription Refill Information The patient has been identified by name and date of : Yes Caregiver verified no other encounters exist for this prescription request: Yes Caregiver confirmed with patient/requestor that no other refills are due, in the near future, with this provider at this time: Yes The last office visit in the department: 03/15/24 Does the patient have a future office visit with this provider/department: No Requested Prescriptions Pending Prescriptions Disp Refills gabapentin (NEURONTIN) 400 mg capsule 270 capsule 1 Sig: Take 1 capsule by mouth every 8 hours for 180 days. psyllium husk (KONSYL) 6 gram pwpk packet 60 Packet 5 Sig: Take 1 Packet by mouth two times a day. RX gabapentin sent to pharmacy on 02/05/24 #270 with 1 refill. Pt not due for medication refill. RX psyllium husk sent to pharmacy on 03/04/24 #60 with 5 refills. Pt not due for medication refill. MC message to pt advising of the same. Gorge Melendrez LPN March 19, 2024 1:45 PM [facility]06-28-2024 Miscellaneous Notes* Telephone Encounter - Gorge Melendrez LPN - 03/19/2024 1:45 PM EDT Prescription Refill Information The patient has been identified by name and date of : Yes Caregiver verified no other encounters exist for this prescription request: Yes Caregiver confirmed with patient/requestor that no other refills are due, in the near future, with this provider at this time: Yes The last office visit in the department: 03/15/24 Does the patient have a future office visit with this provider/department: No Requested Prescriptions Pending Prescriptions Disp Refills gabapentin (NEURONTIN) 400 mg capsule 270 capsule 1 Sig: Take 1 capsule by mouth every 8 hours for 180 days. psyllium husk (KONSYL) 6 gram pwpk packet 60 Packet 5 Sig: Take 1 Packet by mouth two times a day. RX gabapentin sent to pharmacy on 02/05/24 #270 with 1 refill. Pt not due for medication refill. RX psyllium husk sent to pharmacy on 03/04/24 #60 with 5 refills. Pt not due for medication refill. MC message to pt advising of the same. Gorge Melendrez LPN March 19, 2024 1:45 PM documented in this encounterAcmc Healthcare System06-24-2024 Instructions* Patient Instructions* Gini Ayala APRN.CNP - 03/15/2024 11:28 AM EDT Start the doxycycline. Continue mucinex. Start probiotics. Stay well hydrated! Stop at lab and get stool containers. documented in this encounterAcmc Healthcare System06-24-2024 History of Present illness Narrative* Gini Ayala APRN.CNP - 03/15/2024 10:38 AM EDT This is a 78 year old female who presents today with: Patient presents with: Acute Visit: Cough (productive), shortness of breath, headaches for a couple weeks; no fever; usingotc cold pills HISTORY OF PRESENT ILLNESS: Lisa Up is a 78 year old female. Patient presents with: Acute Visit: Cough (productive), shortness of breath, headaches for a couple weeks; no fever; usingotc cold pills Pt presents with diarrhea, sore throat, headache, unable to get out of bed for 4 days Diarrhea: - on and off for a month - currently taking psyllium husk, pt states it is not helping - 4 BM's daily - pt not eating and drinking as much due to increased BM's - dark BM's but not black - appointment with Dr. Crowder in 2 weeks - no nausea or vomiting - generalized abdominal cramps and bloating intermittently typically right before BM - drinking a lot of water and gatorade Sore throat: - going on for 1 week - parker phlegm - coughing more in the mornings - no shortness of breath, chest pain - notices pressure in the R ear - has tried Sin-Aide and mucinex - runny nose - post nasal drip accumulating - no fevers/chills, intermittent body aches Headache: - going on for 1 week - some sensitivity to light - headache on the top of head - feels like pressure and aching - has tried tylenol, has not helped PAST MEDICAL HISTORY: PAST MEDICAL HISTORY Diagnosis Date ANXIETY STATE NOS 06/07/2005 Arthritis Cancer (HCC) Carpal tunnel syndrome 06/07/2005 Cholelithiasis 06/17/2012 DEPRESSIVE DISORDER NEC 06/07/2005 Diverticulosis of colon (without mention of hemorrhage) Dizziness and giddiness 02/26/2010 GENERAL OSTEOARTHROSIS 06/07/2005 Goiter, unspecified 12/11/2010 Headache(784.0) 02/26/2010 Chronic. 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 Ramírez, severe PAST SURGICAL HISTORY Procedure Laterality Date ABDOMINAL SURGERY HX ARTHRP KNE CONDYLE&PLATU MEDIAL&LAT COMPARTMENTS February2010 Knee replacement, total, Left ARTHRP KNE CONDYLE&PLATU MEDIAL&LAT COMPARTMENTS 07/2010 Knee replacement, total, Right BACK SURGERY HX COLONOSCOPY FLX DX W/COLLJ SPEC WHEN PFRMD 06/05/2011 Colonoscopy COLONOSCOPY FLX DX W/COLLJ SPEC WHEN PFRMD N/A 12/04/2016 ESOPHAGOGASTRODUODENOSCOPY TRANSORAL DIAGNOSTIC N/A 12/04/2016 DEVORA FILTER 2018 INSJ TUNNELED CTR VAD W/SUBQ PORT AGE 5 YR/> 06/05/2022 JOINT REPLACEMENT HX L'SCOPE CHOLECYSTECTOMY 07/30/2022 Dr Gonzalez NEPHRECTOMY PARTIAL 1986 Nephrectomy, partial left (benign) PAST SURGICAL HISTORY OF 06/2018 lumbar burger with wound infection TONSILLECTOMY HX TOTAL ABDOMINAL HYSTERECT W/WO RMVL TUBE OVARY 1985 Hysterectomy, NEISHA VAGINAL HYSTERECTOMY ALLERGIES Covid-19 Vaccine, Mrna, [id number], Lnp-S (Moderna); Adhesive; Erythromycin; Latex; Lisinopril; Nafcillin; Nifedipine; Norvasc [Amlodipine Besylate]; and Wasps MEDICATIONS Current Outpatient Medications Medication Sig PARoxetine (PAXIL) 10 mg tablet Take 1 tablet by mouth once daily. psyllium husk (KONSYL) 6 gram pwpk packet Take 1 Packet by mouth two times a day. gabapentin (NEURONTIN) 400 mg capsule Take 1 capsule by mouth every 8 hours for 180 days. carvedilol (COREG) 25 mg tablet Take 1 tablet by mouth two times a day. omeprazole (PRILOSEC) 20 mg capsule Take 1 capsule by mouth two times a day. hydrALAZINE (APRESOLINE) 50 mg tablet Take 1 tablet by mouth two times a day. potassium chloride (K-TAB) 10 mEq tablet Take 1 tablet by mouth two times a day. levothyroxine (SYNTHROID) 75 mcg tablet Take 1 tablet by mouth daily before breakfast. apixaban (ELIQUIS) 5 mg tab(s) Take 1 tablet by mouth two times a day. OTC PRODUCT Super Snooze with Melatonin: Take one capsule by mouth at bedtime as needed. acetaminophen 650 mg CR tablet Take 650 mg by mouth every 8 hours as needed. EPINEPHrine (EPIPEN) 0.3 mg/0.3 mL auto-injector Use as directed multivitamin/iron/folic acid (CENTRUM ULTRA WOMEN'S ORAL) Take 1 tablet by mouth once daily. No current facility-administered medications for this visit. FAMILY HISTORY Problem Relation Age of Onset Heart Mother Cancer Mother lung Heart Father other (Other) Father Heart Brother [place], aneurysm Migraines Daughter Macular Degen Maternal Aunt Social History Tobacco Use Smoking status: Never Smokeless tobacco: Never Vaping Use Vaping Use: Never used Substance Use Topics Alcohol use: No Drug use: No EXAM: BP 108/78 Pulse 66 Resp 16 SpO2 96% PHYSICAL EXAM: General Appearance: Well appearing, alert, in no acute distress, well-hydrated, well nourished.. Skin: Skin color, texture, turgor normal, no suspicious rashes or lesions. Head: Normocephalic, no masses, lesions, tenderness or abnormalities. Eyes: Anicteric sclera. Pupils are equally round and reactive to light. Extraocular movements are intact. . Ears: Positive findings: cerumen bilaterally, amount Small. Oropharynx: Lips, mucosa, and tongue normal, teeth and gums normal, oropharynx normal and Positive findings: moderate oropharyngeal erythema. Lungs: Positive findings: expiratory wheezing RLL. Shortness of breath: Upon exertion Cough. Heart: RRR without murmur, gallop, or rubs. No ectopy. Abdomen: Abdomen soft, tenderness in epigastric region. Bowel sounds normal. No masses, organomegaly. Extremities: No deformities, edema, skin discoloration, clubbing or cyanosis. Good capillary refill. . Neurologic: Gait normal. ASSESSMENT/PLAN: 1. Diarrhea, unspecified type - ICD9: 787.91, ICD10: R19.7 (primary diagnosis) - appt with Dr. Crowder on 03/29/2024 Get labs and stool studies. - COMPLETE BLOOD COUNT AND DIFFERENTIAL - COMPREHENSIVE METABOLIC PANEL - THYROID STIMULATING HORMONE - SEDIMENTATION RATE, WESTERGREN - C-REACTIVE PROTEIN - T4 FREE/FREE THYROXINE - NOROVIRUS GROUP 1 AND 2 - ENTERIC BACTERIAL PANEL BY PCR - CRYPTOSPORIDIUM AND GIARDIA ANTIGENS BY EIA - ROTAVIRUS AG BY EIA - C. DIFFICILE PCR - FECAL LACTOFERRIN/LEUKOCYTES - CALPROTECTIN,FECAL 2. Sinobronchitis - ICD9: 473.9, 490, ICD10: J32.9, J40 - Will begin treatment with as per antibiotic as written, see orders - Supportive care with plenty of fluids, rest, and analgesia prn. - DOXYCYCLINE HYCLATE 100 MG TABLET Discussed treatment plan and patient voices understanding. Patient's questions answered appropriately. Medications and potential side effects were discussed and patient voices understanding. Return to the office as scheduled or as needed for worsening/no improvement. Gini Ayala APRN.CRISIS COUNSELOR The patient indicates understanding of these issues and agrees with the plan. documented in this encounterAcmc [facility]06-24-2024 Telephone encounter Note * Telephone Encounter - Abril Henriquez RN - 03/15/2024 7:25 AM EDT Reason for Call: Weakness, sore throat, cough, diarrhea Outcome: Patient was conferenced to [facility] in [facility] for HCP within 4 hour scheduling.Advised Urgent/Express Care if no appointments available. Reason for Disposition [1] MODERATE weakness (i.e., interferes with work, school, normal activities) AND [2] cause unknown(Exceptions: Weakness from acute minor illness or poor fluid intake; weakness is chronic and not worse.) Answer Assessment - Initial Assessment Questions 1. DESCRIPTION: Weak, tired, in bed for last 4 days 2. SEVERITY: Moderate 3. ONSET: Four days ago 4. CAUSE: Diarrhea for last month, cold symptoms 5. NEW MEDICINES: Denies any new medications 6. OTHER SYMPTOMS: Sore throat, headache, diarrhea, cough with goff phlegm, can't take deep breath 7. : N/A Patient is drinking usual amount of fluids and urinating usual amount and frequency, last urination03/14/24 last night, incontinent and still in bed No medication changes within the past 30 days. Protocols used: Weakness (Generalized) and [id number] [facility]06-24-2024 Miscellaneous Notes* Telephone Encounter - Abril Henriquez RN - 03/15/2024 7:25 AM EDT Reason for Call: Weakness, sore throat, cough, diarrhea Outcome: Patient was conferenced to [facility] in [facility] for HCP within 4 hour scheduling.Advised Urgent/Express Care if no appointments available. Reason for Disposition [1] MODERATE weakness (i.e., interferes with work, school, normal activities) AND [2] cause unknown(Exceptions: Weakness from acute minor illness or poor fluid intake; weakness is chronic and not worse.) Answer Assessment - Initial Assessment Questions 1. DESCRIPTION: Weak, tired, in bed for last 4 days 2. SEVERITY: Moderate 3. ONSET: Four days ago 4. CAUSE: Diarrhea for last month, cold symptoms 5. NEW MEDICINES: Denies any new medications 6. OTHER SYMPTOMS: Sore throat, headache, diarrhea, cough with goff phlegm, can't take deep breath 7. : N/A Patient is drinking usual amount of fluids and urinating usual amount and frequency, last urination03/14/24 last night, incontinent and still in bed No medication changes within the past 30 days. Protocols used: Weakness (Generalized) and [id number] documented in this encounterAcmc Healthcare System06-13-2024 Instructions* Patient Instructions* Judith Pickard APRN.CNS - 03/04/2024 11:54 AM EDT 1) Consult GI 2) Labs today 3) Increase psyllium powder to 2 x day 4) Follow up in 3 months documented in this encounterAcmc [facility] System06-13-2024 History of Present illness Narrative* Judith Pickard APRN.CNS - 03/04/2024 11:31 AM EDT This is a 78 year old female who presents today with: Patient presents with: Diarrhea HISTORY OF PRESENT ILLNESS: Lisa Up is a 78 year old female. Patient presents with: Diarrhea Diarrhea for a year. Taking psyllium. Gas and bloating. No nausea or vomiting. Taking Women's vitamin. Hair and nails supplement. If she eats a regular meal, starts diarrhea. Drinks can of pop daily. Milk can bother her. Hair thinning Back of neck itching Fever and chills through the night. No cough No significant hematuria or dysuria PAST MEDICAL HISTORY: PAST MEDICAL HISTORY Diagnosis Date ANXIETY STATE NOS 06/07/2005 Arthritis Cancer (HCC) Carpal tunnel syndrome 06/07/2005 Cholelithiasis 06/17/2012 DEPRESSIVE DISORDER NEC 06/07/2005 Diverticulosis of colon (without mention of hemorrhage) Dizziness and giddiness 02/26/2010 GENERAL OSTEOARTHROSIS 06/07/2005 Goiter, unspecified 12/11/2010 Headache(784.0) 02/26/2010 Chronic. 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 Ramírez, severe PAST SURGICAL HISTORY Procedure Laterality Date ABDOMINAL SURGERY HX ARTHRP KNE CONDYLE&PLATU MEDIAL&LAT COMPARTMENTS February2010 Knee replacement, total, Left ARTHRP KNE CONDYLE&PLATU MEDIAL&LAT COMPARTMENTS 07/2010 Knee replacement, total, Right BACK SURGERY HX COLONOSCOPY FLX DX W/COLLJ SPEC WHEN PFRMD 06/05/2011 Colonoscopy COLONOSCOPY FLX DX W/COLLJ SPEC WHEN PFRMD N/A 12/04/2016 ESOPHAGOGASTRODUODENOSCOPY TRANSORAL DIAGNOSTIC N/A 12/04/2016 DEVORA FILTER 2019 INSJ TUNNELED CTR VAD W/SUBQ PORT AGE 5 YR/> 06/05/2022 JOINT REPLACEMENT HX L'SCOPE CHOLECYSTECTOMY 07/30/2022 Dr Gonzalez NEPHRECTOMY PARTIAL 1986 Nephrectomy, partial left (benign) PAST SURGICAL HISTORY OF 06/2018 lumbar burger with wound infection TONSILLECTOMY HX TOTAL ABDOMINAL HYSTERECT W/WO RMVL TUBE OVARY 1985 Hysterectomy, NEISHA VAGINAL HYSTERECTOMY ALLERGIES Covid-19 Vaccine, Mrna, [id number], Lnp-S (Moderna); Adhesive; Erythromycin; Latex; Lisinopril; Nafcillin; Nifedipine; Norvasc [Amlodipine Besylate]; and Wasps MEDICATIONS Current Outpatient Medications Medication Sig gabapentin (NEURONTIN) 400 mg capsule Take 1 capsule by mouth every 8 hours for 180 days. PARoxetine (PAXIL) 10 mg tablet Take 1 tablet by mouth once daily. carvedilol (COREG) 25 mg tablet Take 1 tablet by mouth two times a day. omeprazole (PRILOSEC) 20 mg capsule Take 1 capsule by mouth two times a day. hydrALAZINE (APRESOLINE) 50 mg tablet Take 1 tablet by mouth two times a day. potassium chloride (K-TAB) 10 mEq tablet Take 1 tablet by mouth two times a day. levothyroxine (SYNTHROID) 75 mcg tablet Take 1 tablet by mouth daily before breakfast. apixaban (ELIQUIS) 5 mg tab(s) Take 1 tablet by mouth two times a day. OTC PRODUCT Super Snooze with Melatonin: Take one capsule by mouth at bedtime as needed. acetaminophen 650 mg CR tablet Take 650 mg by mouth every 8 hours as needed. EPINEPHrine (EPIPEN) 0.3 mg/0.3 mL auto-injector Use as directed multivitamin/iron/folic acid (CENTRUM ULTRA WOMEN'S ORAL) Take 1 tablet by mouth once daily. No current facility-administered medications for this visit. FAMILY HISTORY Problem Relation Age of Onset Heart Mother Cancer Mother lung Heart Father other (Other) Father Heart Brother [place], aneurysm Migraines Daughter Macular Degen Maternal Aunt Social History Tobacco Use Smoking status: Never Smokeless tobacco: Never Vaping Use Vaping Use: Never used Substance Use Topics Alcohol use: No Drug use: No EXAM: BP 142/66 Pulse 66 Temp 36.7 C (98 F) Resp 18 Wt 105.7 kg (233 lb) SpO2 97% BMI 41.27 kg/m PHYSICAL EXAM: Physical Exam Vitals reviewed. Constitutional: Appearance: Normal appearance. HENT: Head: Normocephalic. Neck: Comments: Just inside hairline, a papule without drainage that is 3-4 mm in size, itches- some redness down from hairline- middle occipital area Cardiovascular: Rate and Rhythm: Normal rate and regular rhythm. Pulses: Normal pulses. Heart sounds: Normal heart sounds. Pulmonary: Effort: Pulmonary effort is normal. Breath sounds: Normal breath sounds. Abdominal: General: There is distension. Palpations: Abdomen is soft. Tenderness: There is no abdominal tenderness. There is no guarding. Musculoskeletal: General: Normal range of motion. Skin: General: Skin is warm and dry. Neurological: Mental Status: She is alert. LABS: check labs ASSESSMENT/PLAN: ASSESSMENT/PLAN: 1. Diarrhea, unspecified type - ICD9: 787.91, ICD10: R19.7 (primary diagnosis) Ongoing for a year - CONSULT TO GASTROENTEROLOGY - PSYLLIUM HUSK 6 GRAM ORAL POWDER PACKET 2. Anxiety with depression - ICD9: 300.4, ICD10: F41.8 Ongoing - PAROXETINE 10 MG TABLET 3. Chilling - ICD9: 780.64, ICD10: R68.83 Check for UTI - URINALYSIS, REFLEX MICROSCOPIC - URINE CULTURE - COMPLETE BLOOD COUNT AND DIFFERENTIAL - COMPREHENSIVE METABOLIC PANEL - MAGNESIUM - VITAMIN B12 4. Chills - ICD9: 780.64, ICD10: R68.83 Check for UTI Discussed treatment plan and patient voices understanding. Patient's questions answered appropriately. Medications and potential side effects were discussed and patient voices understanding. Return to the office as scheduled or as needed for worsening/no improvement. Judith Pickard APRN.DEVELOPMENTAL SERVICES WORKER documented in this encounterAcmc Healthcare System06-12-2024 Miscellaneous Notes* Telephone Encounter - Yarely Lee RN - 03/03/2024 10:25 AM EDT Patient calls to report diarrhea. Nurse triage completed. Protocol recommends see provider within 3days. Scheduled for when patient has transportation available 03/04/2024. Reviewed care advice and staying well hydrated and increasing fluids to avoid dehydration and the need for IV fluids. Patient v erbalizes understanding. Diet remains bland and eating small amounts. Reason for Disposition [1] Mild diarrhea (e.g., 1-3 or more stools than normal in past 24 hours) without known cause AND [2] present > 7 days Answer Assessment - Initial Assessment Questions 1. DIARRHEA SEVERITY: - MILD (SCALE 1-3): Few loose or mushy BMs; increase of 1- 3 stools over normal daily number of stools; mild increase in ostomy output. Patient reports on average 2 liquid stools daily. Sometimes more but not sure how much more. Patient reports liquid stool. Green and foul smelling sometimes. Patient reports taking Miralax daily despite the diarrhea as she was told to continue this and avoid taking imodium. Recommended if having diarrhea to hold the Miralax. Patient declines to do so because a provider told her to continue takingit. Patient reports diarrhea is inerfering with going out for activities. 2. ONSET: Patient reports on going for a very long time. 3. BM CONSISTENCY:Patient reports water. Never has a normal bowel movement. 4. VOMITING:No 5. ABDOMEN PAIN: No 6. ABDOMEN PAIN SEVERITY: NA 7. ORAL INTAKE: Keeping fluids down. Approximately 52 oz yesterday. 8. HYDRATION: No dry mouth [not just dry lips], too weak to stand, dizziness, new weight loss) Urinating per usual. Last urination this morning. 9. EXPOSURE: No foreign travel, exposure, or spoiled food. 10. ANTIBIOTIC USE: Patient denies 11. OTHER SYMPTOMS: No fever, blood in stool Protocols used: [id number] documented in this encounterAcmc Healthcare System06-12-2024 Telephone encounter Note * Telephone Encounter - Yarely Lee RN - 03/03/2024 10:25 AM EDT Patient calls to report diarrhea. Nurse triage completed. Protocol recommends see provider within 3days. Scheduled for when patient has transportation available 03/04/2024. Reviewed care advice and staying well hydrated and increasing fluids to avoid dehydration and the need for IV fluids. Patient v erbalizes understanding. Diet remains bland and eating small amounts. Reason for Disposition [1] Mild diarrhea (e.g., 1-3 or more stools than normal in past 24 hours) without known cause AND [2] present > 7 days Answer Assessment - Initial Assessment Questions 1. DIARRHEA SEVERITY: - MILD (SCALE 1-3): Few loose or mushy BMs; increase of 1- 3 stools over normal daily number of stools; mild increase in ostomy output. Patient reports on average 2 liquid stools daily. Sometimes more but not sure how much more. Patient reports liquid stool. Green and foul smelling sometimes. Patient reports taking Miralax daily despite the diarrhea as she was told to continue this and avoid taking imodium. Recommended if having diarrhea to hold the [place]iral[place]. Patient declines to do so because a provider told her to continue takingit. Patient reports diarrhea is inerfering with going out for activities. 2. ONSET: Patient reports on going for a very long time. 3. BM CONSISTENCY:Patient reports water. Never has a normal bowel movement. 4. VOMITING:No 5. ABDOMEN PAIN: No 6. ABDOMEN PAIN SEVERITY: NA 7. ORAL INTAKE: Keeping fluids down. Approximately 52 oz yesterday. 8. HYDRATION: No dry mouth [not just dry lips], too weak to stand, dizziness, new weight loss) Urinating per usual. Last urination this morning. 9. EXPOSURE: No foreign travel, exposure, or spoiled food. 10. ANTIBIOTIC USE: Patient denies 11. OTHER SYMPTOMS: No fever, blood in stool Protocols used: [id number] [facility]05-30-[facility] History of Present illness Narrative* Shaila Rincon APRN.CRISIS COUNSELOR - 02/19/2024 1:15 PM EDT Special Education Professor offered: Patient declines. Lisa Up is a 78 year old female who presents for problem visit incontinence. HPI: pt states that she is having complete loss of bladder control. She states that she will stand up and urine will just pour out of her. She states that she has had issues with incontinence since her back surgery but never to this extreme. 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 Ramírez, severe PAST SURGICAL HISTORY Procedure Laterality Date ABDOMINAL SURGERY HX ARTHRP KNE CONDYLE&PLATU MEDIAL&LAT COMPARTMENTS February2010 Knee replacement, total, Left ARTHRP KNE CONDYLE&PLATU MEDIAL&LAT COMPARTMENTS 07/2010 Knee replacement, total, Right BACK SURGERY HX COLONOSCOPY FLX DX W/COLLJ SPEC WHEN PFRMD 06/05/2011 Colonoscopy COLONOSCOPY FLX DX W/COLLJ SPEC WHEN PFRMD N/A 12/04/2016 ESOPHAGOGASTRODUODENOSCOPY TRANSORAL DIAGNOSTIC N/A 12/04/2016 DEVORA FILTER 2018 INSJ TUNNELED CTR VAD W/SUBQ PORT AGE 5 YR/> 06/05/2022 JOINT REPLACEMENT HX L'SCOPE CHOLECYSTECTOMY 07/30/2022 Dr Gonzalez NEPHRECTOMY PARTIAL 1986 Nephrectomy, partial left (benign) PAST SURGICAL HISTORY OF 06/2018 lumbar burger with wound infection TONSILLECTOMY HX TOTAL ABDOMINAL HYSTERECT W/WO RMVL TUBE OVARY 1985 Hysterectomy, NEISHA VAGINAL HYSTERECTOMY FAMILY HISTORY Problem Relation Age of Onset Heart Mother Cancer Mother lung Heart Father other (Other) Father Heart Brother [place], aneurysm Migraines Daughter Macular Degen Maternal Aunt Social History Tobacco Use Smoking status: Never Smokeless tobacco: Never Vaping Use Vaping Use: Never used Substance Use Topics Alcohol use: No Drug use: No Current Outpatient Medications Medication Sig gabapentin (NEURONTIN) 400 mg capsule Take 1 capsule by mouth every 8 hours for 180 days. PARoxetine (PAXIL) 10 mg tablet Take 1 tablet by mouth once daily. carvedilol (COREG) 25 mg tablet Take 1 tablet by mouth two times a day. omeprazole (PRILOSEC) 20 mg capsule Take 1 capsule by mouth two times a day. hydrALAZINE (APRESOLINE) 50 mg tablet Take 1 tablet by mouth two times a day. potassium chloride (K-TAB) 10 mEq tablet Take 1 tablet by mouth two times a day. levothyroxine (SYNTHROID) 75 mcg tablet Take 1 tablet by mouth daily before breakfast. apixaban (ELIQUIS) 5 mg tab(s) Take 1 tablet by mouth two times a day. OTC PRODUCT Super Snooze with Melatonin: Take one capsule by mouth at bedtime as needed. acetaminophen 650 mg CR tablet Take 650 mg by mouth every 8 hours as needed. EPINEPHrine (EPIPEN) 0.3 mg/0.3 mL auto-injector Use as directed multivitamin/iron/folic acid (CENTRUM ULTRA WOMEN'S ORAL) Take 1 tablet by mouth once daily. No current facility-administered medications for this visit. Allergies As of Date: 02/19/2024 Allergen Noted Reaction COVID-19 VACCINE, MRNA, [id number]*06/29/2021 Anaphylaxis ADHESIVE 06/10/2022 Rash ERYTHROMYCIN 06/08/2013 Rash and GI Upset LATEX 02/13/2010 Swelling LISINOPRIL 12/25/2017 Swelling NAFCILLIN 10/11/2018 Itching NIFEDIPINE 12/30/2022 Rash NORVASC [AMLODIPINE BESYLATE] 02/19/2018 Swelling WASPS 07/29/2017 Mental Status Change and Rash Fully Assessed 02/05/2024 REVIEW OF SYSTEMS Expanded ROS: N/A Allergies and current medication updated:Yes EXAM: There were no vitals taken for this visit. GENERAL: pleasant, female in no apparent distress HEENT: Normocephalic, atraumatic, mucus membranes moist, and no lesions CHEST: Normal inspiratory effort NEURO: alert and oriented x3,exam grossly non-focal EXTREMITIES: normal ASSESSMENT/PLAN: 1. Urinary incontinence without sensory awareness - ICD9: 788.34, ICD10: N39.42 - CONSULT TO GYNECOLOGIC/ONCOLOGY Shaila Rincon APRN.CNP Medical Decision Making: Problems: Moderate: 1+ chronic illnesses with change Risk: Low: Low risk from testing/treatment Medical Decision Making Level: 3 - Low documented in this encounterAcm[facility]05-16-2024 Instructions* Patient Instructions* Judith Pickard APRN.CNS - 02/05/2024 11:28 AM EDT 1) Paxil 10 mg daily 2) Diclofenac gel 2 x day to left shoulder 3) Follow up in 6 weeks documented in this encounterAcmc [facility] System05-16-2024 History of Present illness Narrative* Judith Pickard APRN.DEVELOPMENTAL SERVICES WORKER - 02/05/2024 11:10 AM EDT This is a 78 year old female who presents today with: Patient presents with: Anxiety: Medication follow up HISTORY OF PRESENT ILLNESS: Lisa Up is a 78 year old female. Patient presents with: Anxiety: Medication follow up Having trouble with constipation and diarrhea. Cramping when constipated. This has been going on for months,. Put on anxiety pill but couldn't tolerate it. Made tremors really bad. Prefers trying paxil, she has tolerated well in past. Discussed a prn medication and prefers daily Tx. Sharp pains in left upper chest & shoulder. Last 15 min. Not related to activity. Not noticing SOB associated. PAST MEDICAL HISTORY: PAST MEDICAL HISTORY Diagnosis Date ANXIETY STATE NOS 06/07/2005 Arthritis Cancer (HCC) Carpal tunnel syndrome 06/07/2005 Cholelithiasis 06/17/2012 DEPRESSIVE DISORDER NEC 06/07/2005 Diverticulosis of colon (without mention of hemorrhage) Dizziness and giddiness 02/26/2010 GENERAL OSTEOARTHROSIS 06/07/2005 Goiter, unspecified 12/11/2010 Headache(784.0) 02/26/2010 Chronic. 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 Ramírez, severe PAST SURGICAL HISTORY Procedure Laterality Date ABDOMINAL SURGERY HX ARTHRP KNE CONDYLE&PLATU MEDIAL&LAT COMPARTMENTS February2010 Knee replacement, total, Left ARTHRP KNE CONDYLE&PLATU MEDIAL&LAT COMPARTMENTS 07/2010 Knee replacement, total, Right BACK SURGERY HX COLONOSCOPY FLX DX W/COLLJ SPEC WHEN PFRMD 06/05/2011 Colonoscopy COLONOSCOPY FLX DX W/COLLJ SPEC WHEN PFRMD N/A 12/04/2016 ESOPHAGOGASTRODUODENOSCOPY TRANSORAL DIAGNOSTIC N/A 12/04/2016 DEVORA FILTER 2019 INSJ TUNNELED CTR VAD W/SUBQ PORT AGE 5 YR/> 06/05/2022 JOINT REPLACEMENT HX L'SCOPE CHOLECYSTECTOMY 07/30/2022 Dr Gonzalez NEPHRECTOMY PARTIAL 1986 Nephrectomy, partial left (benign) PAST SURGICAL HISTORY OF 06/2018 lumbar burger with wound infection TONSILLECTOMY HX TOTAL ABDOMINAL HYSTERECT W/WO RMVL TUBE OVARY 1985 Hysterectomy, NEISHA VAGINAL HYSTERECTOMY ALLERGIES Covid-19 Vaccine, Mrna, [id number], Lnp-S (Moderna); Adhesive; Erythromycin; Latex; Lisinopril; Nafcillin; Nifedipine; Norvasc [Amlodipine Besylate]; and Wasps MEDICATIONS Current Outpatient Medications Medication Sig carvedilol (COREG) 25 mg tablet Take 1 tablet by mouth two times a day. omeprazole (PRILOSEC) 20 mg capsule Take 1 capsule by mouth two times a day. hydrALAZINE (APRESOLINE) 50 mg tablet Take 1 tablet by mouth two times a day. potassium chloride (K-TAB) 10 mEq tablet Take 1 tablet by mouth two times a day. levothyroxine (SYNTHROID) 75 mcg tablet Take 1 tablet by mouth daily before breakfast. apixaban (ELIQUIS) 5 mg tab(s) Take 1 tablet by mouth two times a day. gabapentin (NEURONTIN) 400 mg capsule Take 1 capsule by mouth every 8 hours for 180 days. OTC PRODUCT Super Snooze with Melatonin: Take one capsule by mouth at bedtime as needed. acetaminophen 650 mg CR tablet Take 650 mg by mouth every 8 hours as needed. EPINEPHrine (EPIPEN) 0.3 mg/0.3 mL auto-injector Use as directed multivitamin/iron/folic acid (CENTRUM ULTRA WOMEN'S ORAL) Take 1 tablet by mouth once daily. sertraline (ZOLOFT) 50 mg tablet Take 1/2 tab once a day orally for one week then 1 tab once a day (Patient not taking: Reported on 02/05/2024) No current facility-administered medications for this visit. FAMILY HISTORY Problem Relation Age of Onset Heart Mother Cancer Mother lung Heart Father other (Other) Father Heart Brother [place], aneurysm Migraines Daughter Macular Degen Maternal Aunt Social History Tobacco Use Smoking status: Never Smokeless tobacco: Never Vaping Use Vaping Use: Never used Substance Use Topics Alcohol use: No Drug use: No EXAM: BP 134/62 Pulse (!) 59 Resp 14 Wt 108 kg (238 lb) SpO2 97% BMI 42.16 kg/m PHYSICAL EXAM: Physical Exam Vitals reviewed. Constitutional: Appearance: Normal appearance. HENT: Head: Normocephalic. Cardiovascular: Rate and Rhythm: Normal rate and regular rhythm. Pulmonary: Effort: Pulmonary effort is normal. Breath sounds: Normal breath sounds. Abdominal: General: Bowel sounds are normal. Musculoskeletal: General: Normal range of motion. Cervical back: Normal range of motion. Skin: General: Skin is warm and dry. Neurological: Mental Status: She is alert. Full ROM left shoulder. No palpable tenderness. Pain intermittent and short lasting. No associated with any Sx of SOB, diaphoresis, or N/V. Reviewed last CT in December ASSESSMENT/PLAN: 1. Left arm pain - ICD9: 729.5, ICD10: M79.602 Waxes and wanes - GABAPENTIN 400 MG CAPSULE - reviewed CT in December - Not r/t activity - Treat with diclofenac gel - Will return with report on pain. 2. Neck pain - ICD9: 723.1, ICD10: M54.2 Stable - GABAPENTIN 400 MG CAPSULE 3. DDD (degenerative disc disease), lumbar - ICD9: 722.52, ICD10: M51.36 ongoing - Trial diclofenac gel 2 x day - GABAPENTIN 400 MG CAPSULE 4. Anxiety with depression - ICD9: 300.4, ICD10: F41.8 (primary diagnosis) Sertraline not tolerated - PAROXETINE 10 MG TABLET Discussed treatment plan and patient voices understanding. Patient's questions answered appropriately. Medications and potential side effects were discussed and patient voices understanding. Return to the office as scheduled or as needed for worsening/no improvement. Judith Pickard APRN.DEVELOPMENTAL SERVICES WORKER documented in this encounterAcmc [facility] System04-25-2024 Telephone encounter Note * Telephone Encounter - YaimaMariaz - 01/15/2024 12:05 PM EDT Called and spoke with patient. Scheduled for scans in 3 months. Mariza De Jesus [facility]04-25-2024 Miscellaneous Notes* Telephone Encounter - Mariza Erwin - 01/15/2024 12:05 PM EDT Called and spoke with patient. Scheduled for scans in 3 months. Mariza De Jesus * Telephone Encounter - Lou Rincon - 01/08/2024 8:36 AM EDT Left message for patient to return call. When she calls, please advise of Brendon's message below. Lou Rincon * Telephone Encounter - Brendon Coppola APRN.CNP - 01/08/2024 8:17 AM EDT Please inform pt. that her LDH is normal so we will repeat her CT abd/pelvis in 3 months. Thank you. Brendon Coppola APRN.LEONCIO documented in this encounterAcmc [facility] System04-19-2024 Miscellaneous Notes* Telephone Encounter - Anel Schuster MA - 01/09/2024 9:07 AM EDT Fax from pharmacy needs dose clarification on zoloft. Please resend with correct dose instructions Anel Schuster MA documented in this encounterAcmc [facility]04-18-2024 Telephone encounter Note * Telephone Encounter - Lou Rincon - 01/08/2024 8:36 AM EDT Left message for patient to return call. When she calls, please advise of Brendon's message below. Lou Rincon [facility]04-18-2024 Telephone encounter Note* Telephone Encounter - Brendon Coppola APRN.CNP - 01/08/2024 8:17 AM EDT Please inform pt. that her LDH is normal so we will repeat her CT abd/pelvis in 3 months. Thank you. Brendon Coppola APRN.CNP [facility]04-17-2024 History of Present illness Narrative* Sylvia Lizama MD - 01/07/2024 1:38 PM EDT Patient presents with: 6 Month Exam HPI: Patient presents today for office visit for follow up with multiple concerns. Feeling anxious a lot. I panic at stupid stuff Feeling this way for several months. Sleeping pretty good. Bp is ok GERD: Continues on Omeprazole twice a day Symptoms controlled Continues on Eliquis. No bleeding or bruising concerns. HTN: Monitors BP occ Denies chest pain and shortness of breath Mentions pressure in her head. Not the worst headache just pressure. No congestion. Has issues describing symptoms. Gets lightheaded sometimes Denies palpitations Denies syncope Edema to B/L feet/ankles/legs/hands. No change in diet. No redness or warmth. . Weight has not changed. No increased shortness of breath. No orthopnea. Does not move much and sits with her legs in a dependent position. Just had ct of chest and abd and pelvis. Just checked and echo in 09/13 Refers to hearing a motor running sound but there is nothing running. Has hearing loss. Offered ent. Eyes water constantly and are red and itchy. Complains of burning. Has OTC eye drops but they don'tseem to help. Recommended eye doctor Hx of Neuropathy. Continues on Gabapentin. Complains today of B/L hand numbness. Ongoing for years since she had back surgery in 2018. Feeling more tired and hair loss. MEDICATIONS: Current Outpatient Medications Medication Sig potassium chloride (K-TAB) 10 mEq tablet Take 1 tablet by mouth two times a day. levothyroxine (SYNTHROID) 75 mcg tablet Take 1 tablet by mouth daily before breakfast. hydrALAZINE (APRESOLINE) 50 mg tablet Take 1 tablet by mouth two times a day. omeprazole (PRILOSEC) 20 mg capsule Take 1 capsule by mouth two times a day. 1/2 hr before meal. apixaban (ELIQUIS) 5 mg tab(s) Take 1 tablet by mouth two times a day. carvedilol (COREG) 25 mg tablet Take 1 tablet by mouth twice daily. gabapentin (NEURONTIN) 400 mg capsule Take 1 capsule by mouth every 8 hours for 180 days. OTC PRODUCT Super Snooze with Melatonin: Take one capsule by mouth at bedtime as needed. acetaminophen 650 mg CR tablet Take 650 mg by mouth every 8 hours as needed. EPINEPHrine (EPIPEN) 0.3 mg/0.3 mL auto-injector Use as directed multivitamin/iron/folic acid (CENTRUM ULTRA WOMEN'S ORAL) Take 1 tablet by mouth once daily. No current facility-administered medications for this visit. ALLERGIES: ALLERGIES Allergen Reactions Covid-19 Vaccine, M* Anaphylaxis Adhesive Rash Blisters and dermatitis from op site dressing and tape Erythromycin Rash, GI Upset Urticarial rash, seen in [place] [facility] Latex Swelling Lisinopril Swelling Nafcillin Itching 06/29/21 negative penicillin skin testing. Passed oral amoxicillin challenge. Nifedipine Rash Norvasc [Amlodipine* Swelling Wasps Mental Status Change, Rash PAST MEDICAL HISTORY Diagnosis Date ANXIETY STATE NOS 06/07/2005 Arthritis Cancer (HCC) Carpal tunnel syndrome 06/07/2005 Cholelithiasis 06/17/2012 DEPRESSIVE DISORDER NEC 06/07/2005 Diverticulosis of colon (without mention of hemorrhage) Dizziness and giddiness 02/26/2010 GENERAL OSTEOARTHROSIS 06/07/2005 Goiter, unspecified 12/11/2010 Headache(784.0) 02/26/2010 Chronic. 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 Ramírez, severe PAST SURGICAL HISTORY Procedure Laterality Date ABDOMINAL SURGERY HX ARTHRP KNE CONDYLE&PLATU MEDIAL&LAT COMPARTMENTS February2010 Knee replacement, total, Left ARTHRP KNE CONDYLE&PLATU MEDIAL&LAT COMPARTMENTS 07/2010 Knee replacement, total, Right BACK SURGERY HX COLONOSCOPY FLX DX W/COLLJ SPEC WHEN PFRMD 06/05/2011 Colonoscopy COLONOSCOPY FLX DX W/COLLJ SPEC WHEN PFRMD N/A 12/04/2016 ESOPHAGOGASTRODUODENOSCOPY TRANSORAL DIAGNOSTIC N/A 12/04/2016 DEVORA FILTER 2019 INSJ TUNNELED CTR VAD W/SUBQ PORT AGE 5 YR/> 06/05/2022 JOINT REPLACEMENT HX L'SCOPE CHOLECYSTECTOMY 07/30/2022 Dr Gonzalez NEPHRECTOMY PARTIAL 1986 Nephrectomy, partial left (benign) PAST SURGICAL HISTORY OF 06/2018 lumbar burger with wound infection TONSILLECTOMY HX TOTAL ABDOMINAL HYSTERECT W/WO RMVL TUBE OVARY 1985 Hysterectomy, NEISHA VAGINAL HYSTERECTOMY FAMILY HISTORY Problem Relation Age of Onset Heart Mother Cancer Mother lung Heart Father other (Other) Father Heart Brother [place], aneurysm Migraines Daughter Macular Degen Maternal Aunt Social History Tobacco Use Smoking status: Never Smokeless tobacco: Never Vaping Use Vaping Use: Never used Substance Use Topics Alcohol use: No Drug use: No Reviewed current medications, allergies, past medical history, surgical history, family history andsocial history today. REVIEW OF SYSTEMS Has chronic alternating bowel habits. . Discussed not taking antidiarrheal pill along with a stool softener which is what she is doing. All other reviewed and negative other than HPI. HEALTH MAINTENANCE: Reviewed health maintenance issues today and recommended the following in detail. BP Controlled (<130/80) Never done RSV Vaccine(1 - 1-dose 60+ series) Never done Advance Directive Discussion due on 09/22/2023 VITALS: BP 124/58 Pulse 69 Ht 160 cm (5' 3) Wt 107.5 kg (237 lb) SpO2 98% BMI 41.98 kg/m Last 4 Encounter Wt Readings: Date: Wt: 12/16/2023 106.6 kg (235 lb) 2023 106.8 kg (235 lb 6.4 oz) 10/27/2023 106.7 kg (235 lb 3.2 oz) 09/23/2023 106.2 kg (234 lb 3.2 oz) PHYSICAL EXAMINATION: General appearance: Well appearing, alert, in no acute distress, well-hydrated, well nourished. Skin: Skin color, texture, turgor normal, no suspicious rashes or lesions Head: Normocephalic, no masses, lesions, tenderness or abnormalities Lungs: Lungs clear to auscultation. No wheezing, rhonchi, rales Heart: RRR without murmur, gallop, or rubs. No ectopy Abdomen: Normal abdominal exam, Abdomen soft, non-tender. Bowel sounds normal. No masses, organomegaly Extremities: no appreciable increased edema. Musculoskeletal: No joint swelling, deformity, or tenderness ASSESSMENT/PLAN: 1. Essential hypertension - ICD9: 401.9, ICD10: I10 (primary diagnosis) - Controlled - Continue current medications - CARVEDILOL 25 MG TABLET - HYDRALAZINE 50 MG TABLET - COMPLETE BLOOD COUNT AND DIFFERENTIAL 2. GERD without esophagitis - ICD9: 530.81, ICD10: K21.9 - continue meds - OMEPRAZOLE 20 MG CAPSULE,DELAYED RELEASE 3. Mixed hyperlipidemia - ICD9: 272.2, ICD10: E78.27} - Counseled on healthy diet and regular exercise 4. Essential tremor - ICD9: 333.1, ICD10: G25.0 - stable. 5 Hypothyroidism, unspecified type - ICD9: 244.9, ICD10: E03.9 - check labs. - THYROID STIMULATING HORMONE - T4/FTI/T4U 7. B-cell lymphoma, unspecified B-cell lymphoma type, unspecified body region (HCC) - ICD9: 202.80,ICD10: C85.10 - per heme onc 8. Thrombocytopenia, secondary - ICD9: 287.49, ICD10: D69.59 - per heme onc 9. Anxiety with depression - ICD9: 300.4, ICD10: F41.8 - start zofoft. Discussed risks and benefits of new medication with the patient. Advised them to call if any side effects or questions. - SERTRALINE 50 MG TABLET 10. Bilateral carotid artery stenosis - ICD9: 433.10, 433.30, ICD10: I65.23 - follow duplex 11. History of DVT (deep vein thrombosis) - ICD9: V12.51, ICD10: Z86.718 - stable. Sylvia Lizama RTO in one month to recheck start of zoloft and prn. documented in this encounterAcmc Healthcare System04-12-2024 Miscellaneous Notes* Telephone Encounter - Brendon Coppola APRN.CNP - 01/02/2024 12:35 PM EDT Done. Brendon Coppola APRN.LEONCIO * Telephone Encounter - Lou Rincon - 01/02/2024 12:32 PM EDT Lab scheduled as directed. Lou Rincon * Telephone Encounter - Ashley Garrison LPN - 01/02/2024 12:26 PM EDT PSS please schedule lab appt. 01/06 @ 2 pm. Pt. aware Brendon can you sign orders. Ashley Garrison LPN * Telephone Encounter - Brendon Coppola APRN.CNP - 01/02/2024 12:[address] with [address]. Quintero. Please advise pt. that we need more labs: CBC/CMP and an LDH. Thank you. Brendon Coppola APRN.LEONCIO documented in this encounterAcmc Healthcare System04-12-2024 Telephone encounter Note * Telephone Encounter - Brendon Coppola APRN.CNP - 01/02/2024 12:22 PM EDT Spoke with pt. See other phone note today regarding labs needed. Brendon Coppola APRN.CNP [facility] Work Phone: 1(971) 643-380704-12-2024 Miscellaneous Notes* Telephone Encounter - Brendon Coppola APRN.CNP - 01/02/2024 12:22 PM EDT Spoke with pt. See other phone note today regarding labs needed. Brendon Coppola APRN.LEONCIO * Telephone Encounter - María Elena Louis - 12/30/2023 10:03 AM EDT Patient is requesting a call from clinical to explain the /3 CT results to her. documented in this encounterAcmc Healthcare System04-09-2024 Telephone encounter Note * Telephone Encounter - María Elena Louis - 12/30/2023 10:03 AM EDT Patient is requesting a call from clinical to explain the /3 CT results to her. [facility] Work Phone: 1(619) 540-617104-03-2024 History of Present illness Narrative* Jacky VenturaDannielle, RT(R) - 12/24/2023 11:20 AM EDT Radiology Service Progress Note DATE OF SERVICE: December 24, 2023 TIME: 2:20 PM PATIENT IDENTITY VERIFICATION COMPLETED USING TWO (2) STANDARD IDENTIFIERS: Name and Date of confirmed by patient verbally. FALL SCREENING: Has the patient had 2 falls in the last year or 1 fall with injury or currently using an Ambulatory Assistive Device (Walker, Cane, Wheelchair, Crutches, etc.)? No PATIENT GENDER DATA: Female. status: : No status: NO. PATIENT RELEVANT IMPLANT DATA REVIEWED: Yes PATIENT PRESENTS WITH AN IMPLANTABLE OR ATTACHED COLLECTIVE BARGAINING SPECIALIST: No ALLERGIES: Reviewed and unchanged CONTRAST ALLERGY: NO. EXAM: CT -CONTRAST INDUCED NEPHROPATHY RISK FACTORS: Patient age > 60 years CREATININE: Creatinine Date Value Ref Range Status 12/24/2023 0.79 0.58 - 0.96 mg/dL Final 06/13/2023 0.81 0.58 - 0.96 mg/dL Final 06/06/2023 0.79 0.58 - 0.96 mg/dL Final Estimated Glomerular Filtration Rate Date Value Ref Range Status 12/24/2023 76 >=60 mL/min/1.73m Final Comment: Estimated Glomerular Filtration Rate (eGFR) is calculated using the 2020 CKD-EPI creatinine equation. This equation utilizes serum creatinine, sex, and age as parameters. The creatinine assay has traceable calibration to isotope dilution- mass spectrometry. Refer to KDIGO guidelines for clinical interpretation. In patients with unstable renal function, e.g. those with acute kidney injury, the eGFRmay not accurately reflect actual GFR. eGFR- Date Value Ref Range Status 10/18/2021 >60 Final P.O.C.T. RESULTS: POC done: Yes, See Lab Tab December 24, 2023 TREATMENT: N/A PERIPHERAL IV DATA: Ambulatory: A peripheral IV was started in the Right antecubital site with a Angio cath: 22 gauge. RADIOLOGY DEPARTMENT: CT; Exam(s) Completed: Chest Abdomen Pelvis SIGNATURE: RT Blanca(R) PATIENT NAME: Lisa Up DATE: December 24, 2023 TIME: 2:20 PM documented in this encounterAcmc Healthcare System02-18-2024 Miscellaneous Notes* Telephone Encounter - Harmony Castillo LPN - 11/09/2023 1:33 PM EST Patient given results and verbalized understanding of instructions given. Harmony Castillo LPN * Telephone Encounter - Kimberly Altamirano APRN.LEONCIO - 11/09/2023 1:23 PM EST Please call patient and let her know that the ultrasound came back normal there were no acute findings patient should follow-up with primary care. documented in this encounterAcmc Healthcare System02-16-2024 History of Present illness Narrative* Elida Desir RDMS - 11/07/2023 10:45 AM EST Radiology Service Progress Note PATIENT NAME: Lisa Up DATE OF SERVICE: November 07, 2023 TIME: 11:06 AM PATIENT IDENTITY VERIFICATION COMPLETED USING TWO (2) IDENTIFIERS: Name and Date of confirmedby patient verbally. FALL SCREENING: Has the patient had 2 falls in the last year or 1 fall with injury or currently using an Ambulatory Assistive Device (Walker, Cane, Wheelchair, Crutches, etc.)? Yes, Patient High Riskfor Falls What interventions were put in place to prevent falls during this visit? Instructed Patient to Callfor Help if Needed, Offered Assistance with Transfers/Clothing, Instructed Patient to Remain Seated(Not on Exam Table) Until Exam, and Increased Observations by Caregivers PATIENT GENDER DATA: Female. status: : No status: NO. PATIENT RELEVANT IMPLANT DATA REVIEWED: Not Applicable PATIENT PRESENTS WITH AN IMPLANTABLE OR ATTACHED COLLECTIVE BARGAINING SPECIALIST: No RADIOLOGY DEPARTMENT: Ultrasound PERIPHERAL IV DATA: Not applicable SIGNED BY: Elida Desir RDMS [facility] November 07, 2023 11:06 AM documented in this encounterAcmc Healthcare System02-14-2024 History of Present illness Narrative* Darrian Key PA - 2023 2:42 PM EST This note was created using Mamina Shkolariter. Subjective Lisa Up is a 78 year old female. HPI 78-year-old female presents for UTI symptoms starting yesterday. Patient has been having frequency, urgency and burning with urination. No blood in the urine. No abdominal pain or back pain. She does report she has some pressure in her bladder. No fevers. No vomiting. She has had UTIs in the past, but none recently. PAST MEDICAL HISTORY Diagnosis Date ANXIETY STATE NOS 06/07/2005 Arthritis Cancer (HCC) Carpal tunnel syndrome 06/07/2005 Cholelithiasis 06/17/2012 DEPRESSIVE DISORDER NEC 06/07/2005 Diverticulosis of colon (without mention of hemorrhage) Dizziness and giddiness 02/26/2010 GENERAL OSTEOARTHROSIS 06/07/2005 Goiter, unspecified 12/11/2010 Headache(784.0) 02/26/2010 Chronic. 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 Ramírez, severe PAST SURGICAL HISTORY Procedure Laterality Date ABDOMINAL SURGERY HX ARTHRP KNE CONDYLE&PLATU MEDIAL&LAT COMPARTMENTS February2010 Knee replacement, total, Left ARTHRP KNE CONDYLE&PLATU MEDIAL&LAT COMPARTMENTS 07/2010 Knee replacement, total, Right BACK SURGERY HX COLONOSCOPY FLX DX W/COLLJ SPEC WHEN PFRMD 06/05/2011 Colonoscopy COLONOSCOPY FLX DX W/COLLJ SPEC WHEN PFRMD N/A 12/04/2016 ESOPHAGOGASTRODUODENOSCOPY TRANSORAL DIAGNOSTIC N/A 12/04/2016 WENDEL FILTER 2019 INSJ TUNNELED CTR VAD W/SUBQ PORT AGE 5 YR/> 06/05/2022 JOINT REPLACEMENT HX L'SCOPE CHOLECYSTECTOMY 07/30/2022 Dr Gonzalez NEPHRECTOMY PARTIAL 1986 Nephrectomy, partial left (benign) PAST SURGICAL HISTORY OF 06/2018 lumbar burger with wound infection TONSILLECTOMY HX TOTAL ABDOMINAL HYSTERECT W/WO RMVL TUBE OVARY 1985 Hysterectomy, NEISHA VAGINAL HYSTERECTOMY ALLERGIES Covid-19 Vaccine, Mrna, [id number], Lnp-S (Moderna); Adhesive; Erythromycin; Latex; Lisinopril; Nafcillin; Nifedipine; Norvasc [Amlodipine Besylate]; and Wasps MEDICATIONS potassium chloride (K-TAB) 10 mEq tablet Take 1 tablet by mouth two times a day. levothyroxine (SYNTHROID) 75 mcg tablet Take 1 tablet by mouth daily before breakfast. hydrALAZINE (APRESOLINE) 50 mg tablet Take 1 tablet by mouth two times a day. tiZANidine (ZANAFLEX) 4 mg tablet omeprazole (PRILOSEC) 20 mg capsule Take 1 capsule by mouth two times a day. 1/2 hr before meal. apixaban (ELIQUIS) 5 mg tab(s) Take 1 tablet by mouth two times a day. carvedilol (COREG) 25 mg tablet Take 1 tablet by mouth twice daily. gabapentin (NEURONTIN) 400 mg capsule Take 1 capsule by mouth every 8 hours for 180 days. triamterene-hydroCHLOROthiazide (MAXZIDE-25) 37.5-25 mg per tablet Take 1 tablet by mouth once daily. [DISCONTINUED] hydrALAZINE (APRESOLINE) 25 mg tablet Take 2 tablets by mouth twice daily. OTC PRODUCT Super Snooze with Melatonin: Take one capsule by mouth at bedtime as needed. acetaminophen 650 mg CR tablet Take 650 mg by mouth every 8 hours as needed. EPINEPHrine (EPIPEN) 0.3 mg/0.3 mL auto-injector Use as directed multivitamin/iron/folic acid (CENTRUM ULTRA WOMEN'S ORAL) Take 1 tablet by mouth once daily. FAMILY HISTORY Problem Relation Age of Onset Heart Mother Cancer Mother lung Heart Father other (Other) Father Heart Brother [place], aneurysm Migraines Daughter Macular Degen Maternal Aunt Social History Tobacco Use Smoking status: Never Smokeless tobacco: Never Vaping Use Vaping Use: Never used Substance Use Topics Alcohol use: No Drug use: No Review of Systems Constitutional: Negative for chills and fever. HENT: Negative for congestion, ear pain and sore throat. Respiratory: Negative for cough and shortness of breath. Cardiovascular: Negative for chest pain. Gastrointestinal: Negative for abdominal pain, diarrhea and vomiting. Genitourinary: Positive for dysuria, frequency and urgency. Negative for hematuria. Objective BP 142/74 Pulse 79 Temp 36.6 C (97.8 F) (Tympanic) Resp 18 Wt 106.8 kg (235 lb 6.4 oz) SpO2 96% BMI 41.70 kg/m Physical Exam Vitals and nursing note reviewed. Constitutional: General: She is not in acute distress. Appearance: Normal appearance. She is not toxic-appearing. Cardiovascular: Rate and Rhythm: Normal rate and regular rhythm. Pulmonary: Effort: Pulmonary effort is normal. Breath sounds: Normal breath sounds. Abdominal: General: Abdomen is flat. Palpations: Abdomen is soft. Tenderness: There is no abdominal tenderness. There is no right CVA tenderness, left CVA tenderness, guarding or rebound. Skin: General: Skin is warm and dry. Neurological: Mental Status: She is alert. Assessment and Plan ASSESSMENT/PLAN: 1. Urinary frequency - ICD9: 788.41, ICD10: R35.0 acute - UA positive for nolvia esterase, and proteinuria - Send urine for culture - Begin treatment with Macrobid 100 mg BID for 7 days - Patient education for prevention given - UA DIP, URINE (POC) - URINE CULTURE -Labs 05/2023 revealed normal kidney function. Creatinine clearance calculated at 93. Diagnosis and treatment plan were discussed and questions were answered to the patient's satisfaction. Pt acknowledged understanding of concepts and follow up plan. Specific signs and symptoms that would indicate the need for higher level of care were discussed in detail warranting prompt ER evaluation. SANDEEP Goff documented in this encounterAcmc Healthcare System02-05-2024 History of Present illness Narrative* Sathya Rajan MD - 10/27/2023 9:42 AM EST Patient presents with: Cough: Chest congestion, SOB x1 week HPI: Feeling sick for 6 days. Gagged on phlegm this mornng and had trouble breathing twice. Had throat swelling with COVID and intubation; this was frightening for her. Positive symptoms: cough, Sinus pressure, Nasal Congestion, Rhinorrhea, Post nasal drainage, Fatigue, poor apetite, Negative symptoms: Shortness of breath, Wheezing, Chest tightness, Fever, Nausea, Vomiting, Diarrhea, OTC: mucinex PAST MEDICAL HISTORY Diagnosis Date ANXIETY STATE NOS 06/07/2005 Arthritis Cancer (HCC) Carpal tunnel syndrome 06/07/2005 Cholelithiasis 06/17/2012 DEPRESSIVE DISORDER NEC 06/07/2005 Diverticulosis of colon (without mention of hemorrhage) Dizziness and giddiness 02/26/2010 GENERAL OSTEOARTHROSIS 06/07/2005 Goiter, unspecified 12/11/2010 Headache(784.0) 02/26/2010 Chronic. 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 Ramírez, severe MEDICATIONS: Current Outpatient Medications Medication Sig potassium chloride (K-TAB) 10 mEq tablet Take 1 tablet by mouth two times a day. levothyroxine (SYNTHROID) 75 mcg tablet Take 1 tablet by mouth daily before breakfast. hydrALAZINE (APRESOLINE) 50 mg tablet Take 1 tablet by mouth two times a day. tiZANidine (ZANAFLEX) 4 mg tablet omeprazole (PRILOSEC) 20 mg capsule Take 1 capsule by mouth two times a day. 1/2 hr before meal. apixaban (ELIQUIS) 5 mg tab(s) Take 1 tablet by mouth two times a day. carvedilol (COREG) 25 mg tablet Take 1 tablet by mouth twice daily. gabapentin (NEURONTIN) 400 mg capsule Take 1 capsule by mouth every 8 hours for 180 days. triamterene-hydroCHLOROthiazide (MAXZIDE-25) 37.5-25 mg per tablet Take 1 tablet by mouth once daily. OTC PRODUCT Super Snooze with Melatonin: Take one capsule by mouth at bedtime as needed. acetaminophen 650 mg CR tablet Take 650 mg by mouth every 8 hours as needed. EPINEPHrine (EPIPEN) 0.3 mg/0.3 mL auto-injector Use as directed multivitamin/iron/folic acid (CENTRUM ULTRA WOMEN'S ORAL) Take 1 tablet by mouth once daily. No current facility-administered medications for this visit. ALLERGIES: ALLERGIES Allergen Reactions Covid-19 Vaccine, M* Anaphylaxis Adhesive Rash Blisters and dermatitis from op site dressing and tape Erythromycin Rash, GI Upset Urticarial rash, seen in [place] ER Latex Swelling Lisinopril Swelling Nafcillin Itching 06/29/21 negative penicillin skin testing. Passed oral amoxicillin challenge. Nifedipine Rash Norvasc [Amlodipine* Swelling Wasps Mental Status Change, Rash VITALS: BP 157/80 Pulse 74 Temp 36.4 C (97.6 F) Resp 22 Wt 106.7 kg (235 lb 3.2 oz) SpO2 97% BMI 41.66 kg/m PHYSICAL EXAM: GEN: mildly ill appearing, alert, no acute distress. Accompanied by her daughter. HEENT: PERRL, EOMI, conjunctiva clear Ears: canals clear. TMs without erythema, bulge, or effusion Sinuses: non-tender frontal sinus, non-tender maxillary sinuses Throat: moist mucous membranes, mild erythema, no exudate, no edema or mass, hoarse voice Neck: supple, no thyromegaly, ~6cm soft mass in the right anterior triangle, no other palpable lymphadenopathy, no thyroid enlargement HEART: regular rate and rhythm, no murmurs LUNGS: clear to auscultation, no wheezes or crackles, no increased WOB ASSESSMENT/PLAN: 1. URI, acute - ICD9: 465.9, ICD10: J06.9 (primary diagnosis) - COVID & INFLUENZA A/B & RSV NAAT, ROUTINE - GUAIFENESIN ER 600 MG TABLET, EXTENDED RELEASE 12 HR 2. Choking episode - ICD9: 784.99, ICD10: R09.89 Gagging on post nasal drainage. EMS transport if throat swelling occurs. 3. Neck mass - ICD9: 784.2, ICD10: R22.1 Normal thyroid noted on CT neck 04/19/2021 and chest 06/06/2023. The mass is above the level of the thyroid. The patient and daughter are unable to determine in self palpation and visualization of the neck. She did have a right IJ catheter removed 10/14/23 and may have soft tissue swelling/hematoma from that. - US HEAD/NECK SOFT TISSUE OTHER Follow up with PCP in about 1 week for recheck. Sathya aRjan MD documented in this encounterAcmc Healthcare System12-12-2023 Instructions* Patient Instructions* Franklyn Juares MD - 09/02/2023 9:04 AM EST Continue: Systane Complete solution instill 1 drop 3 times daily Both Eyes. If you have any questions please contact our office at [phone]. After office hours or on the weekend, please call Dr. Juares on his cell phone at [phone]. documented in this encounterAcmc Healthcare System12-12-2023 History of Present illness Narrative* Franklyn Juares MD - 09/02/2023 8:58 AM EST ASSESSMENT/PLAN: 1. Ocular hypertension, bilateral - ICD9: 365.04, ICD10: H40.053 (primary diagnosis) Family history of Glaucoma: Aunt Monitor 2. Optic cupping of both eyes - ICD9: 377.14, ICD10: H47.233 Monitor 3. Combined forms of age-related cataract of both eyes - ICD9: 366.19, ICD10: H25.813 Patient has an appointment to see Dr. Hollins at [facility] in [place] on 09/08/2023 for refraction and glasses. If vision is not improved consider cataract surgery Both Eyes. Continue: Systane Complete solution instill 1 drop 3 times daily Both Eyes. 4. Essential hypertension - ICD9: 401.9, ICD10: I10 Continue to monitor with primary care physician. 5. CHRISTIANA (obstructive sleep apnea) - ICD9: 327.23, ICD10: G47.33 Continue to monitor with primary care physician. Franklyn Juares MD I have confirmed and edited as necessary the relevant ophthalmic history, review of systems, surgical history, and ophthalmological examination findings as obtained by the ophthalmic technical staff.I have seen and examined Lisa Up. I have discussed the examination findings, diagnosis, and treatment options with Lisa Up and/or her family. I have also reviewed and agree with theassessment and plan as stated above and agree with all its relevant components. I gave the patient the opportunity to ask questions about the findings, diagnosis, and treatment options. documented in this encounterAcmc Healthcare System12-04-2023 Instructions* Patient Instructions* Franklyn Juares MD - 08/25/2023 11:56 AM EST Systane Complete Artificial Tears - Use 1 Drop into both eyes three times a day. documented in this encounterAcmc Healthcare System12-04-2023 History of Present illness Narrative* Franklyn Juares MD - 08/25/2023 11:37 AM EST ASSESSMENT/PLAN: 1. Primary open angle glaucoma (POAG) of both eyes, mild stage - ICD9: 365.11, 365.71, ICD10: H40.1131 (primary diagnosis) - FUNDUS PHOTOS OU (BOTH EYES) - OCT OPTIC NERVE CIRRUS OU (BOTH EYES) The nature of glaucoma was discussed, with emphasis on the non-reversible damage to the optic nerve. Treatment options and the importance of regular examinations and testing were covered in detail, as well as the consequences of non-compliance. The patient was given the opportunity to ask questions. 2. Optic cupping of both eyes - ICD9: 377.14, ICD10: H47.233 - FUNDUS PHOTOS OU (BOTH EYES) - Stable / Monitor 3. Combined form of age-related cataract, both eyes - ICD9: 366.19, ICD10: H25.813 - Patient recommended to see manager supply chain planning for updated refraction, if no improvement patient to return for cataract evaluation Patient will need physical, EKG, and BMP if proceeding with cataract surgery. 4. Essential hypertension - ICD9: 401.9, ICD10: I10 5. CHRISTIANA (obstructive sleep apnea) - ICD9: 327.23, ICD10: G47.33 - Continue to monitor with PCP I have confirmed and edited as necessary the relevant ophthalmic history, review of systems, surgical history, and ophthalmological examination findings as obtained by the ophthalmic technical staff.I have seen and examined Lisa Up. I have discussed the examination findings, diagnosis, and treatment options with Lisa Up and/or her family. I have also reviewed and agree with theassessment and plan as stated above and agree with all its relevant components. I gave the patient the opportunity to ask questions about the findings, diagnosis, and treatment options. Franklyn Juares MD documented in this encounterAcmc Healthcare System11-03-2023 Miscellaneous Notes* Telephone Encounter - Talia Silver LPN - 07/25/2023 3:54 PM EDT Faxed as requested. * Telephone Encounter - Lou Purvis RN - 07/25/2023 12:06 PM EDT Patient calls and states that she needs new orders for CPAP supplies to be faxed to [facility]. Lou Purvis RN documented in this encounterAcmc Healthcare System10-17-2023 Miscellaneous Notes* Letter - Coordinator, Mammography - 07/08/2023 4:21 PM EDT July 09, 2023 PID: [id number] Lisa Up [address] [address] Dear Ms. Up, We are pleased to inform you that the results of your recent breast imaging exam on 07/08/2023 are normal. Early detection of cancer is very important. We also understand recommendations regarding breast cancer screening are controversial. Please discuss with your primary care provider which strategy is best for you and whether a mammogram is right for you. Your imaging studies and report will be [facility] on [facility] at [facility] as part of your permanent medical record and are available for your continuing care. Thank you for allowing us to help in meeting your health care needs. Sincerely, Dr. Peterson Interpreting Radiologist [facility] (Normal over 40) documented in this encounterAcmc Healthcare System10-17-2023 History of Present illness Narrative* Sylvia Lizama MD - 07/08/2023 3:40 PM EDT Patient presents with: Follow Up: 3 month HPI: Patient presents today for office visit for follow up. Left shoulder pain is improved. X-ray back in March was normal. Had massage therapy with no relief. Using Tylenol for pain. Saw Josse on 04/17/23 given Rx for oral prednisone for 5 days. Completed PT 05/13/23 Continues to take Gabapentin 400 mg TID HTN: Monitoring BP at home Denies chest pain and shortness of breath Has some chronic edema. She thinks it does go down at night. No redness or warmth. Discussed retrying support hose. Admits to sitting frequently. Has a hx of peripheral edema. Has a hx of dvt. No gerd. Follows with Hem/Onc Just had ct scans. Had carotid checked. Just recently had labs. See my ov from three months ago: Feeling stressed and feels down due to pain in her shoulder. Blood pressure: Changed dose of HCTZ. Brought list today of what she is taking for her blood pressure and reports that this is controlling it. No chest pain or shortness of breath. No worsening swelling. Numbness: Legs/feet. Is on gabapentin. Having worsening burning at night. Using her walker. No new falls. Wondering about pain management? Saw previously in [place] for back and legs. Her shoulder is very painful. Did have a fall a few weeks before it began. Has had issues with chronic neck issues on and off. Does get more pain in her neck. Still with pain in left shoulder that is now going down her arm. Using Tylenol. Massage felt good but didn't help shoulder. Follows with heme onc regularly. Has stenosis of carotids. Due for recheck. MEDICATIONS: Current Outpatient Medications Medication Sig tiZANidine (ZANAFLEX) 4 mg tablet carvedilol (COREG) 25 mg tablet Take 1 tablet by mouth twice daily. hydrALAZINE (APRESOLINE) 50 mg tablet Take 1 tablet by mouth twice daily. gabapentin (NEURONTIN) 400 mg capsule Take 1 capsule by mouth every 8 hours for 180 days. potassium chloride (K-TAB) 10 mEq tablet Take 1 tablet by mouth twice daily. OTC PRODUCT Super Snooze with Melatonin: Take one capsule by mouth at bedtime as needed. acetaminophen 650 mg CR tablet Take 650 mg by mouth every 8 hours as needed. EPINEPHrine (EPIPEN) 0.3 mg/0.3 mL auto-injector Use as directed multivitamin/iron/folic acid (CENTRUM ULTRA WOMEN'S ORAL) Take 1 tablet by mouth once daily. levothyroxine (SYNTHROID) 75 mcg tablet Take 1 tablet by mouth daily before breakfast. omeprazole (PRILOSEC) 20 mg capsule Take 1 capsule by mouth two times a day. 1/2 hr before meal. apixaban (ELIQUIS) 5 mg tab(s) Take 1 tablet by mouth two times a day. triamterene-hydroCHLOROthiazide (MAXZIDE-25) 37.5-25 mg per tablet Take 1 tablet by mouth once daily. (Patient not taking: Reported on 04/17/2023) hydroCHLOROthiazide 12.5 mg capsule Take 1 capsule by mouth once daily. (Patient not taking: Reported on 06/13/2023) No current facility-administered medications for this visit. ALLERGIES: ALLERGIES Allergen Reactions Adhesive Rash Blisters and dermatitis from op site dressing and tape Covid-19 Vaccine, M* Anaphylaxis Erythromycin Rash, GI Upset Urticarial rash, seen in [place] ER Latex Swelling Lisinopril Swelling Nafcillin Itching 06/29/21 negative penicillin skin testing. Passed oral amoxicillin challenge. Nifedipine Rash Norvasc [Amlodipine* Swelling Wasps Mental Status Change, Rash PAST MEDICAL HISTORY Diagnosis Date ANXIETY STATE NOS 06/07/2005 Arthritis Cancer (HCC) Carpal tunnel syndrome 06/07/2005 Cholelithiasis 06/17/2012 DEPRESSIVE DISORDER NEC 06/07/2005 Diverticulosis of colon (without mention of hemorrhage) Dizziness and giddiness 02/26/2010 GENERAL OSTEOARTHROSIS 06/07/2005 Goiter, unspecified 12/11/2010 Headache(784.0) 02/26/2010 Chronic. 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 Ramírez, severe PAST SURGICAL HISTORY Procedure Laterality Date ABDOMINAL SURGERY HX ARTHRP KNE CONDYLE&PLATU MEDIAL&LAT COMPARTMENTS February2010 Knee replacement, total, Left ARTHRP KNE CONDYLE&PLATU MEDIAL&LAT COMPARTMENTS 07/2010 Knee replacement, total, Right BACK SURGERY HX COLONOSCOPY FLX DX W/COLLJ SPEC WHEN PFRMD 06/05/2011 Colonoscopy COLONOSCOPY FLX DX W/COLLJ SPEC WHEN PFRMD N/A 12/04/2016 ESOPHAGOGASTRODUODENOSCOPY TRANSORAL DIAGNOSTIC N/A 12/04/2016 DEVORA FILTER 2019 INSJ TUNNELED CTR VAD W/SUBQ PORT AGE 5 YR/> 06/05/2022 JOINT REPLACEMENT HX L'SCOPE CHOLECYSTECTOMY 07/30/2022 Dr Gonzalez NEPHRECTOMY PARTIAL 1986 Nephrectomy, partial left (benign) PAST SURGICAL HISTORY OF 06/2018 lumbar burger with wound infection TONSILLECTOMY HX TOTAL ABDOMINAL HYSTERECT W/WO RMVL TUBE OVARY 1986 Hysterectomy, NEISHA VAGINAL HYSTERECTOMY FAMILY HISTORY Problem Relation Age of Onset Heart Mother Cancer Mother lung Heart Father other (Other) Father Heart Brother [place], aneurysm Migraines Daughter Macular Degen Maternal Aunt Social History Tobacco Use Smoking status: Never Smokeless tobacco: Never Vaping Use Vaping Use: Never used Substance Use Topics Alcohol use: No Drug use: No Reviewed current medications, allergies, past medical history, surgical history, family history andsocial history today. REVIEW OF SYSTEMS Has hx of mitral insufficiency. Has had an echo in 2020 that showed mild hypokenesis after arrest. All other reviewed and negative other than HPI. HEALTH MAINTENANCE: Reviewed health maintenance issues today and recommended the following in detail. Shingrix Vaccine(1 of 2) Never done RSV Vaccine(1 - 1-dose 60+ series) Never done Advance Directive Discussion - had dpoa and living will. Influenza Vaccine(1) due on 05/23/2023 VITALS: BP 136/72 Pulse 73 Resp 16 Wt 106.1 kg (234 lb) SpO2 96% BMI 43.62 kg/m Last 4 Encounter Wt Readings: Date: Wt: 06/13/2023 106.4 kg (234 lb 8 oz) 06/13/2023 106.4 kg (234 lb 8 oz) 04/17/2023 104.3 kg (230 lb) 04/03/2023 103 kg (227 lb) PHYSICAL EXAMINATION: General appearance: Well appearing, alert, in no acute distress, well-hydrated, well nourished. Skin: Skin color, texture, turgor normal, no suspicious rashes or lesions Head: Normocephalic, no masses, lesions, tenderness or abnormalities Eyes: Anicteric sclera. Pupils are equally round and reactive to light. Extraocular movements are intact. Lungs: Lungs clear to auscultation. No wheezing, rhonchi, rales Heart: RRR without murmur, gallop, or rubs. No ectopy Abdomen: Normal abdominal exam, Abdomen soft, non-tender. Bowel sounds normal. No masses, organomegaly Extremities: no redness or wamrth. Nontender. One plus chronic edmea. ASSESSMENT/PLAN: 1. Essential hypertension - ICD9: 401.9, ICD10: I10 (primary diagnosis) - Controlled - Continue current medications 2. GERD without esophagitis - ICD9: 530.81, ICD10: K21.9 - stable. - OMEPRAZOLE 20 MG CAPSULE,DELAYED RELEASE 3. Mixed hyperlipidemia - ICD9: 272.2, ICD10: E78.2 - stable. 4. Non-rheumatic tricuspid valve insufficiency - ICD9: 424.2, ICD10: I36.1 - get echo. 5. Essential tremor - ICD9: 333.1, ICD10: G25.0 - to neuro if worsens. 6. Other migraine without status migrainosus, not intractable - ICD9: 346.80, ICD10: G43.809 - stable. 7. CHRISTIANA (obstructive sleep apnea) - ICD9: 327.23, ICD10: G47.33 - not using it. 8. Gastroesophageal reflux disease, unspecified whether esophagitis present - ICD9: 530.81, ICD10: K21.9 - stable. 9. B-cell lymphoma, unspecified B-cell lymphoma type, unspecified body region (HCC) - ICD9: 202.80,ICD10: C85.10 - per hematology 10. Hypothyroidism, unspecified type - ICD9: 244.9, ICD10: E03.9 LEVOTHYROXINE 75 MCG TABLET 11. joint terminal attack controller current use of anticoagulant therapy - ICD9: V58.61, ICD10: Z79.01 - remains on treatement. 12. Valvular heart disease - ICD9: 424.90, ICD10: I38 - check echo. - ECHO Sylvia Lizama MD [facility] History of Past illness Narrative* Problem Noted Date Diagnosed Date Resolved Date Facial paresthesia 07/08/2023 07/08/2023 Hypertensive urgency 07/08/2023 07/08/2023 023 Left arm pain 04/14/2023 07/08/2023 Neck pain 04/14/2023 07/08/2023 Acute cholecystitis 08/21/2022 07/08/2023 07/08/20 23 Injury of kidney 08/21/2022 07/08/2023 07/08/2023 Abnormal mammogram 05/03/2022 Acute anoxic encephalopathy 06/01/2021 07/08/2023 07/08/2023 Hypokalemia 05/30/2021 05/31/2021 Hyponatremia 05/30/2021 05/31/2021 Delirium 05/28/2021 05/31/2021 Angioedema 05/19/2021 05/31/2021 Mild protein-calorie malnutrition 05/19/2021 04/03/2023 Grayson angina 05/18/2021 05/19/2021 Acute respiratory failure with hypoxia 05/18/2021 05/31/2021 Lymphadenopathy, generalized 05/18/2021 11/27/2022 Chronic tension-type headache, intractable 07/07/2019 11/27/2022 Intractable chronic migraine without aura and without status migrainosus 07/07/2019 11/27/2022 Last Assessment & Plan: Assessment: otc analgesics as needed Cervicalgia 07/07/2019 11/27/2022 Chronic daily headache 07/07/201911/27 History of lumbar fusion 03/17/201904/2023 Last Assessment & Plan: Assessment: h/o Acquired spondylolisthesis o f lumbosacral region 03/17/2019 11/27/2022 Lumbosacral stenosis 03/17/2019 023 Poor posture 03/17/2019 11/27/2022 Wound infection after surgery 11/24/2018 04/03/2023 Overview: Had sepsis and multiple admissions after lumbar burger 07/09 Had wound vac and IV antibiotics Infection due to Enterobacter cloacae 08/31/201807/08/2023 Bacteremia due to methicilli n susceptible Staphylococcus aureus (MSSA) 08/28/2018 07/08/2023 07/08/2023 MSSA (methicillin susceptibl e Staphylococcus aureus) infection 08/28/2018 07/08/2023 07/08/2023 Altered mental status 08/04/2018 07/08/20232022 Diarrhea 08/04/2018 07/08/2023 07/08/2023 Encephalopathy 08/01/2018 07/08/2023 07/08/2023 Spinal stenosis, lumbar cydney on with neurogenic claudication 07/18/2017 11/27/2022 Overview: Added automatically from request for surgery [id number] Lumbar spondylosis 07/18/2017 Overview: Added automatically from request for surgery [id number] Chronic bilateral low back p ain with bilateral sciatica 04/28/2017 11/27/2022 Overview: Added automatically from request for surgery [id number] Obesity due to excess calori es, unspecified obesity severity E66.09 01/02/2017 11/27/2022 Last Assessment & Plan: Assessment: Body mass index is 40.42 kg/m . 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 Primary localized osteoarthrosis, lower leg 02/13/2010 12/11/2010 Anxiety state, unspecified 06/07/2005 0 12/11/2010 Depressive disorder, not elsewhere classified 06/07/20 05 12/11/2010 Carpal tunnel syndrome 06/07/200512/11 documented as of this encounter (statuses as of 07/09/2023) [facility] History of Past illness Narrative* Problem Noted Date Diagnosed Date Resolved Date Facial paresthesia 07/08/2023 07/08/2023 Hypertensive urgency 07/08/2023 07/08/2023 023 Left arm pain 04/14/2023 07/08/2023 Neck pain 04/14/2023 07/08/2023 Acute cholecystitis 08/21/2022 07/08/2023 07/08/20 23 Injury of kidney 08/21/2022 07/08/2023 07/08/2023 Abnormal mammogram 05/03/2022 Acute anoxic encephalopathy 06/01/2021 07/08/2023 07/08/2023 Hypokalemia 05/30/2021 05/31/2021 Hyponatremia 05/30/2021 05/31/2021 Delirium 05/28/2021 05/31/2021 Angioedema 05/19/2021 05/31/2021 Mild protein-calorie malnutrition 05/19/2021 04/03/2023 Grayson angina 05/18/2021 05/19/2021 Acute respiratory failure with hypoxia 05/18/2021 05/31/2021 Lymphadenopathy, generalized 05/18/2021 11/27/2022 Chronic tension-type headache, intractable 07/07/2019 11/27/2022 Intractable chronic migraine without aura and without status migrainosus 07/07/2019 11/27/2022 Last Assessment & Plan: Assessment: otc analgesics as needed Cervicalgia 07/07/2019 11/27/2022 Chronic daily headache 07/07/201911/27 History of lumbar fusion 03/17/201904/2023 Last Assessment & Plan: Assessment: h/o Acquired spondylolisthesis o f lumbosacral region 03/17/2019 11/27/2022 Lumbosacral stenosis 03/17/2019 023 Poor posture 03/17/2019 11/27/2022 Wound infection after surgery 11/24/2018 04/03/2023 Overview: Had sepsis and multiple admissions after lumbar burger 07/09 Had wound vac and IV antibiotics Infection due to Enterobacter cloacae 08/31/201807/08/2023 Bacteremia due to methicilli n susceptible Staphylococcus aureus (MSSA) 08/28/2018 07/08/2023 07/08/2023 MSSA (methicillin susceptibl e Staphylococcus aureus) infection 08/28/2018 07/08/2023 07/08/2023 Altered mental status 08/04/2018 07/08/20232022 Diarrhea 08/04/2018 07/08/2023 07/08/2023 Encephalopathy 08/01/2018 07/08/2023 07/08/2023 Spinal stenosis, lumbar cydney on with neurogenic claudication 07/18/2017 11/27/2022 Overview: Added automatically from request for surgery [id number] Lumbar spondylosis 07/18/2017 Overview: Added automatically from request for surgery [id number] Chronic bilateral low back p ain with bilateral sciatica 04/28/2017 11/27/2022 Overview: Added automatically from request for surgery [id number] Obesity due to excess calori es, unspecified obesity severity E66.09 01/02/2017 11/27/2022 Last Assessment & Plan: Assessment: Body mass index is 40.42 kg/m . 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 Primary localized osteoarthrosis, lower leg 02/13/2010 12/11/2010 Anxiety state, unspecified 06/07/2005 0 12/11/2010 Depressive disorder, not elsewhere classified 06/07/20 05 12/11/2010 Carpal tunnel syndrome 06/07/200512/11 documented as of this encounter (statuses as of 07/10/2023) [facility] of Past illness Narrative* Problem Noted Date Diagnosed Date Resolved Date Facial paresthesia 07/08/2023 07/08/2023 3 Hypertensive urgency 07/08/2023 07/08/2023 023 Left arm pain 04/14/2023 07/08/2023 Neck pain 04/14/2023 07/08/2023 Acute cholecystitis 08/21/2022 07/08/2023 07/08/20 23 Injury of kidney 08/21/2022 07/08/2023 07/08/2023 Abnormal mammogram 05/03/2022 3 Acute anoxic encephalopathy 06/01/2021 07/08/2023 07/08/2023 Hypokalemia 05/30/2021 05/31/2021 Hyponatremia 05/30/2021 05/31/2021 Delirium 05/28/2021 05/31/2021 Angioedema 05/19/2021 05/31/2021 Mild protein-calorie malnutrition 05/19/2021 04/03/2023 Grayson angina 05/18/2021 05/19/2021 Acute respiratory failure with hypoxia 05/18/2021 05/31/2021 Lymphadenopathy, generalized 05/18/2021 11/27/2022 Chronic tension-type headache, intractable 07/07/2019 11/27/2022 Intractable chronic migraine without aura and without status migrainosus 07/07/2019 11/27/2022 Last Assessment & Plan: Assessment: otc analgesics as needed Cervicalgia 07/07/2019 11/27/2022 Chronic daily headache 07/07/201911/27 History of lumbar fusion 03/17/201904/2023 Last Assessment & Plan: Assessment: h/o Acquired spondylolisthesis o f lumbosacral region 03/17/2019 11/27/2022 Lumbosacral stenosis 03/17/2019 023 Poor posture 03/17/2019 11/27/2022 Wound infection after surgery 11/24/2018 04/03/2023 Overview: Had sepsis and multiple admissions after lumbar burger 07/09 Had wound vac and IV antibiotics Infection due to Enterobacter cloacae 08/31/201807/08/2023 Bacteremia due to methicilli n susceptible Staphylococcus aureus (MSSA) 08/28/2018 07/08/2023 07/08/2023 MSSA (methicillin susceptibl e Staphylococcus aureus) infection 08/28/2018 07/08/2023 07/08/2023 Altered mental status 08/04/2018 07/08/20232022 Diarrhea 08/04/2018 07/08/2023 07/08/2023 Encephalopathy 08/01/2018 07/08/2023 07/08/2023 Spinal stenosis, lumbar cydney on with neurogenic claudication 07/18/2017 11/27/2022 Overview: Added automatically from request for surgery [id number] Lumbar spondylosis 07/18/2017 Overview: Added automatically from request for surgery [id number] Chronic bilateral low back p ain with bilateral sciatica 04/28/2017 11/27/2022 Overview: Added automatically from request for surgery [id number] Obesity due to excess calori es, unspecified obesity severity E66.09 01/02/2017 11/27/2022 Last Assessment & Plan: Assessment: Body mass index is 40.42 kg/m . 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 Primary localized osteoarthrosis, lower leg 02/13/2010 12/11/2010 Anxiety state, unspecified 06/07/2005 0 12/11/2010 Depressive disorder, not elsewhere classified 06/07/20 05 12/11/2010 Carpal tunnel syndrome 06/07/200512/11 documented as of this encounter (statuses as of 07/26/2023) [facility] History of Past illness Narrative* Problem Noted Date Diagnosed Date Resolved Date Facial paresthesia 07/08/2023 07/08/2023 Hypertensive urgency 07/08/2023 07/08/2023 023 Left arm pain 04/14/2023 07/08/2023 Neck pain 04/14/2023 07/08/2023 Acute cholecystitis 08/21/2022 07/08/2023 07/08/20 Injury of kidney 08/21/2022 07/08/2023 07/08/2023 Abnormal mammogram 05/03/2022 Acute anoxic encephalopathy 06/01/2021 07/08/2023 07/08/2023 Hypokalemia 05/30/2021 05/31/2021 Hyponatremia 05/30/2021 05/31/2021 Delirium 05/28/2021 05/31/2021 Angioedema 05/19/2021 05/31/2021 Mild protein-calorie malnutrition 05/19/2021 04/03/2023 Grayson angina 05/18/2021 05/19/2021 Acute respiratory failure with hypoxia 05/18/2021 05/31/2021 Lymphadenopathy, generalized 05/18/2021 11/27/2022 Chronic tension-type headache, intractable 07/07/2019 11/27/2022 Intractable chronic migraine without aura and without status migrainosus 07/07/2019 11/27/2022 Last Assessment & Plan: Assessment: otc analgesics as needed Cervicalgia 07/07/2019 11/27/2022 Chronic daily headache 07/07/201911/27 History of lumbar fusion 03/17/201904/2023 Last Assessment & Plan: Assessment: h/o Acquired spondylolisthesis o f lumbosacral region 03/17/2019 11/27/2022 Lumbosacral stenosis 03/17/2019 023 Poor posture 03/17/2019 11/27/2022 Wound infection after surgery 11/24/2018 04/03/2023 Overview: Had sepsis and multiple admissions after lumbar burger 07/09 Had wound vac and IV antibiotics Infection due to Enterobacter cloacae 08/31/201807/08/2023 Bacteremia due to methicilli n susceptible Staphylococcus aureus (MSSA) 08/28/2018 07/08/2023 07/08/2023 MSSA (methicillin susceptibl e Staphylococcus aureus) infection 08/28/2018 07/08/2023 07/08/2023 Altered mental status 08/04/2018 07/08/20232022 Diarrhea 08/04/2018 07/08/2023 07/08/2023 Encephalopathy 08/01/2018 07/08/2023 07/08/2023 Spinal stenosis, lumbar cydney on with neurogenic claudication 07/18/2017 11/27/2022 Overview: Added automatically from request for surgery [id number] Lumbar spondylosis 07/18/2017 Overview: Added automatically from request for surgery [id number] Chronic bilateral low back p ain with bilateral sciatica 04/28/2017 11/27/2022 Overview: Added automatically from request for surgery [id number] Obesity due to excess calori es, unspecified obesity severity E66.09 01/02/2017 11/27/2022 Last Assessment & Plan: Assessment: Body mass index is 40.42 kg/m . 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 Primary localized osteoarthrosis, lower leg 02/13/2010 12/11/2010 Anxiety state, unspecified 06/07/2005 0 12/11/2010 Depressive disorder, not elsewhere classified 06/07/20 05 12/11/2010 Carpal tunnel syndrome 06/07/200512/11 documented as of this encounter (statuses as of 07/27/2023) [facility] History of Past illness Narrative* Problem Noted Date Diagnosed Date Resolved Date Facial paresthesia 07/08/2023 07/08/2023 Hypertensive urgency 07/08/2023 07/08/2023 023 Left arm pain 04/14/2023 07/08/2023 Neck pain 04/14/2023 07/08/2023 Acute cholecystitis 08/21/2022 07/08/2023 07/08/20 23 Injury of kidney 08/21/2022 07/08/2023 07/08/2023 Abnormal mammogram 05/03/2022 Acute anoxic encephalopathy 06/01/2021 07/08/2023 07/08/2023 Hypokalemia 05/30/2021 05/31/2021 Hyponatremia 05/30/2021 05/31/2021 Delirium 05/28/2021 05/31/2021 Angioedema 05/19/2021 05/31/2021 Mild protein-calorie malnutrition 05/19/2021 04/03/2023 Grayson angina 05/18/2021 05/19/2021 Acute respiratory failure with hypoxia 05/18/2021 05/31/2021 Lymphadenopathy, generalized 05/18/2021 11/27/2022 Chronic tension-type headache, intractable 07/07/2019 11/27/2022 Intractable chronic migraine without aura and without status migrainosus 07/07/2019 11/27/2022 Last Assessment & Plan: Assessment: otc analgesics as needed Cervicalgia 07/07/2019 11/27/2022 Chronic daily headache 07/07/201911/27 History of lumbar fusion 03/17/201904/2023 Last Assessment & Plan: Assessment: h/o Acquired spondylolisthesis o f lumbosacral region 03/17/2019 11/27/2022 Lumbosacral stenosis 03/17/2019 023 Poor posture 03/17/2019 11/27/2022 Wound infection after surgery 11/24/2018 04/03/2023 Overview: Had sepsis and multiple admissions after lumbar burger 07/09 Had wound vac and IV antibiotics Infection due to Enterobacter cloacae 08/31/201807/08/2023 Bacteremia due to methicilli n susceptible Staphylococcus aureus (MSSA) 08/28/2018 07/08/2023 07/08/2023 MSSA (methicillin susceptibl e Staphylococcus aureus) infection 08/28/2018 07/08/2023 07/08/2023 Altered mental status 08/04/2018 07/08/20232022 Diarrhea 08/04/2018 07/08/2023 07/08/2023 Encephalopathy 08/01/2018 07/08/2023 07/08/2023 Spinal stenosis, lumbar cydney on with neurogenic claudication 07/18/2017 11/27/2022 Overview: Added automatically from request for surgery [id number] Lumbar spondylosis 07/18/2017 Overview: Added automatically from request for surgery [id number] Chronic bilateral low back p ain with bilateral sciatica 04/28/2017 11/27/2022 Overview: Added automatically from request for surgery [id number] Obesity due to excess calori es, unspecified obesity severity E66.09 01/02/201711/27/2022 Last Assessment & Plan: Assessment: Body mass index is 40.42 kg/m . 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 Primary localized osteoarthrosis, lower leg 02/13/2010 12/11/2010 Anxiety state, unspecified 06/07/2005 0 12/11/2010 Depressive disorder, not elsewhere classified 06/07/20 05 12/11/2010 Carpal tunnel syndrome 06/07/200512/11 documented as of this encounter (statuses as of 08/25/2023) [facility] History of Past illness Narrative* Problem Noted Date Diagnosed Date Resolved Date Facial paresthesia 07/08/2023 07/08/2023 Hypertensive urgency 07/08/2023 07/08/2023 023 Left arm pain 04/14/2023 07/08/2023 Neck pain 04/14/2023 07/08/2023 Acute cholecystitis 08/21/2022 07/08/2023 07/08/20 Injury of kidney 08/21/2022 07/08/2023 07/08/2023 Abnormal mammogram 05/03/2022 Acute anoxic encephalopathy 06/01/2021 07/08/2023 07/08/2023 Hypokalemia 05/30/2021 05/31/2021 Hyponatremia 05/30/2021 05/31/2021 Delirium 05/28/2021 05/31/2021 Angioedema 05/19/2021 05/31/2021 Mild protein-calorie malnutrition 05/19/2021 04/03/2023 Grayson angina 05/18/2021 05/19/2021 Acute respiratory failure with hypoxia 05/18/2021 05/31/2021 Lymphadenopathy, generalized 05/18/2021 11/27/2022 Chronic tension-type headache, intractable 07/07/2019 11/27/2022 Intractable chronic migraine without aura and without status migrainosus 07/07/2019 11/27/2022 Last Assessment & Plan: Assessment: otc analgesics as needed Cervicalgia 07/07/2019 11/27/2022 Chronic daily headache 07/07/201911/27 History of lumbar fusion 03/17/201904/2023 Last Assessment & Plan: Assessment: h/o Acquired spondylolisthesis o f lumbosacral region 03/17/2019 11/27/2022 Lumbosacral stenosis 03/17/2019 023 Poor posture 03/17/2019 11/27/2022 Wound infection after surgery 11/24/2018 04/03/2023 Overview: Had sepsis and multiple admissions after lumbar burger 07/09 Had wound vac and IV antibiotics Infection due to Enterobacter cloacae 08/31/201807/08/2023 Bacteremia due to methicilli n susceptible Staphylococcus aureus (MSSA) 08/28/2018 07/08/2023 07/08/2023 MSSA (methicillin susceptibl e Staphylococcus aureus) infection 08/28/2018 07/08/2023 07/08/2023 Altered mental status 08/04/2018 07/08/20232022 Diarrhea 08/04/2018 07/08/2023 07/08/2023 Encephalopathy 08/01/2018 07/08/2023 07/08/2023 Spinal stenosis, 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 Primary localized osteoarthrosis, lower leg 02/13/2010 12/11/2010 Anxiety state, unspecified 06/07/2005 0 12/11/2010 Depressive disorder, not elsewhere classified 06/07/20 05 12/11/2010 Carpal tunnel syndrome 06/07/200512/11 documented as of this encounter (statuses as of 09/02/2023) [facility] History of Past illness Narrative* Problem Noted Date Diagnosed Date Resolved Date Facial paresthesia 07/08/2023 07/08/2023 Hypertensive urgency 07/08/2023 07/08/2023 023 Left arm pain 04/14/2023 07/08/2023 Neck pain 04/14/2023 07/08/2023 Acute cholecystitis 08/21/2022 07/08/2023 07/08/20 23 Injury of kidney 08/21/2022 07/08/2023 07/08/2023 Abnormal mammogram 05/03/2022 Acute anoxic encephalopathy 06/01/2021 07/08/2023 07/08/2023 Hypokalemia 05/30/2021 05/31/2021 Hyponatremia 05/30/2021 05/31/2021 Delirium 05/28/2021 05/31/2021 Angioedema 05/19/2021 05/31/2021 Mild protein-calorie malnutrition 05/19/2021 04/03/2023 Grayson angina 05/18/2021 05/19/2021 Acute respiratory failure with hypoxia 05/18/2021 05/31/2021 Lymphadenopathy, generalized 05/18/2021 11/27/2022 Chronic tension-type headache, intractable 07/07/2019 11/27/2022 Intractable chronic migraine without aura and without status migrainosus 07/07/2019 11/27/2022 Last Assessment & Plan: Assessment: otc analgesics as needed Cervicalgia 07/07/2019 11/27/2022 Chronic daily headache 07/07/201911/27 History of lumbar fusion 03/17/201904/2023 Last Assessment & Plan: Assessment: h/o Acquired spondylolisthesis o f lumbosacral region 03/17/2019 11/27/2022 Lumbosacral stenosis 03/17/2019 023 Poor posture 03/17/2019 11/27/2022 Wound infection after surgery 11/24/2018 04/03/2023 Overview: Had sepsis and multiple admissions after lumbar burger 07/09 Had wound vac and IV antibiotics Infection due to Enterobacter cloacae 08/31/201807/08/2023 Bacteremia due to methicilli n susceptible Staphylococcus aureus (MSSA) 08/28/2018 07/08/2023 07/08/2023 MSSA (methicillin susceptibl e Staphylococcus aureus) infection 08/28/2018 07/08/2023 07/08/2023 Altered mental status 08/04/2018 07/08/20232022 Diarrhea 08/04/2018 07/08/2023 07/08/2023 Encephalopathy 08/01/2018 07/08/2023 07/08/2023 Spinal stenosis, 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 Primary localized osteoarthrosis, lower leg 02/13/2010 12/11/2010 Anxiety state, unspecified 06/07/2005 0 12/11/2010 Depressive disorder, not elsewhere classified 06/07/20 05 12/11/2010 Carpal tunnel syndrome 06/07/200512/11 documented as of this encounter (statuses as of 10/27/2023) [facility] History of Past illness Narrative* Problem Noted Date Diagnosed Date Resolved Date Facial paresthesia 07/08/2023 07/08/2023 3 Hypertensive urgency 07/08/2023 07/08/2023 023 Left arm pain 04/14/2023 07/08/2023 Neck pain 04/14/2023 07/08/2023 Acute cholecystitis 08/21/2022 07/08/2023 07/08/20 23 Injury of kidney 08/21/2022 07/08/2023 07/08/2023 Abnormal mammogram 05/03/2022 3 Acute anoxic encephalopathy 06/01/2021 07/08/2023 07/08/2023 Hypokalemia 05/30/2021 05/31/2021 Hyponatremia 05/30/2021 05/31/2021 Delirium 05/28/2021 05/31/2021 Angioedema 05/19/2021 05/31/2021 Mild protein-calorie malnutrition 05/19/2021 04/03/2023 Grayson angina 05/18/2021 05/19/2021 Acute respiratory failure with hypoxia 05/18/2021 05/31/2021 Lymphadenopathy, generalized 05/18/2021 11/27/2022 Chronic tension-type headache, intractable 07/07/2019 11/27/2022 Intractable chronic migraine without aura and without status migrainosus 07/07/2019 11/27/2022 Last Assessment & Plan: Assessment: otc analgesics as needed Cervicalgia 07/07/2019 11/27/2022 Chronic daily headache 07/07/201911/27 History of lumbar fusion 03/17/201904/2023 Last Assessment & Plan: Assessment: h/o Acquired spondylolisthesis o f lumbosacral region 03/17/2019 11/27/2022 Lumbosacral stenosis 03/17/2019 023 Poor posture 03/17/2019 11/27/2022 Wound infection after surgery 11/24/2018 04/03/2023 Overview: Had sepsis and multiple admissions after lumbar burger 07/09 Had wound vac and IV antibiotics Infection due to Enterobacter cloacae 08/31/201807/08/2023 Bacteremia due to methicilli n susceptible Staphylococcus aureus (MSSA) 08/28/2018 07/08/2023 07/08/2023 MSSA (methicillin susceptibl e Staphylococcus aureus) infection 08/28/2018 07/08/2023 07/08/2023 Altered mental status 08/04/2018 07/08/20232022 Diarrhea 08/04/2018 07/08/2023 07/08/2023 Encephalopathy 08/01/2018 07/08/2023 07/08/2023 Spinal stenosis, 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 Primary localized osteoarthrosis, lower leg 02/13/2010 12/11/2010 Anxiety state, unspecified 06/07/2005 0 12/11/2010 Depressive disorder, not elsewhere classified 06/07/20 05 12/11/2010 Carpal tunnel syndrome 06/07/200512/11 documented as of this encounter (statuses as of 2023) [facility] History of Past illness Narrative* Problem Noted Date Diagnosed Date Resolved Date Facial paresthesia 07/08/2023 07/08/2023 Hypertensive urgency 07/08/2023 07/08/2023 023 Left arm pain 04/14/2023 07/08/2023 Neck pain 04/14/2023 07/08/2023 Acute cholecystitis 08/21/2022 07/08/2023 07/08/20 23 Injury of kidney 08/21/2022 07/08/2023 07/08/2023 Abnormal mammogram 05/03/2022 Acute anoxic encephalopathy 06/01/2021 07/08/2023 07/08/2023 Hypokalemia 05/30/2021 05/31/2021 Hyponatremia 05/30/2021 05/31/2021 Delirium 05/28/2021 05/31/2021 Angioedema 05/19/2021 05/31/2021 Mild protein-calorie malnutrition 05/19/2021 04/03/2023 Grayson angina 05/18/2021 05/19/2021 Acute respiratory failure with hypoxia 05/18/2021 05/31/2021 Lymphadenopathy, generalized 05/18/2021 11/27/2022 Chronic tension-type headache, intractable 07/07/2019 11/27/2022 Intractable chronic migraine without aura and without status migrainosus 07/07/2019 11/27/2022 Last Assessment & Plan: Assessment: otc analgesics as needed Cervicalgia 07/07/2019 11/27/2022 Chronic daily headache 07/07/201911/27 History of lumbar fusion 03/17/201904/2023 Last Assessment & Plan: Assessment: h/o Acquired spondylolisthesis o f lumbosacral region 03/17/2019 11/27/2022 Lumbosacral stenosis 03/17/2019 023 Poor posture 03/17/2019 11/27/2022 Wound infection after surgery 11/24/2018 04/03/2023 Overview: Had sepsis and multiple admissions after lumbar burger 07/09 Had wound vac and IV antibiotics Infection due to Enterobacter cloacae 08/31/201807/08/2023 Bacteremia due to methicilli n susceptible Staphylococcus aureus (MSSA) 08/28/2018 07/08/2023 07/08/2023 MSSA (methicillin susceptibl e Staphylococcus aureus) infection 08/28/2018 07/08/2023 07/08/2023 Altered mental status 08/04/2018 07/08/20232022 Diarrhea 08/04/2018 07/08/2023 07/08/2023 Encephalopathy 08/01/2018 07/08/2023 07/08/2023 Spinal stenosis, 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 Primary localized osteoarthrosis, lower leg 02/13/2010 12/11/2010 Anxiety state, unspecified 06/07/2005 0 12/11/2010 Depressive disorder, not elsewhere classified 06/07/20 05 12/11/2010 Carpal tunnel syndrome 06/07/200512/11 documented as of this encounter (statuses as of 11/08/2023) [facility] History of Past illness Narrative* Problem Noted Date Diagnosed Date Resolved Date Facial paresthesia 07/08/2023 07/08/2023 Hypertensive urgency 07/08/2023 07/08/2023 023 Left arm pain 04/14/2023 07/08/2023 Neck pain 04/14/2023 07/08/2023 Acute cholecystitis 08/21/2022 07/08/2023 07/08/20 23 Injury of kidney 08/21/2022 07/08/2023 07/08/2023 Abnormal mammogram 05/03/2022 Acute anoxic encephalopathy 06/01/2021 07/08/2023 07/08/2023 Hypokalemia 05/30/2021 05/31/2021 Hyponatremia 05/30/2021 05/31/2021 Delirium 05/28/2021 05/31/2021 Angioedema 05/19/2021 05/31/2021 Mild protein-calorie malnutrition 05/19/2021 04/03/2023 Grayson angina 05/18/2021 05/19/2021 Acute respiratory failure with hypoxia 05/18/2021 05/31/2021 Lymphadenopathy, generalized 05/18/2021 11/27/2022 Chronic tension-type headache, intractable 07/07/2019 11/27/2022 Intractable chronic migraine without aura and without status migrainosus 07/07/2019 11/27/2022 Last Assessment & Plan: Assessment: otc analgesics as needed Cervicalgia 07/07/2019 11/27/2022 Chronic daily headache 07/07/201911/27 History of lumbar fusion 03/17/201904/2023 Last Assessment & Plan: Assessment: h/o Acquired spondylolisthesis o f lumbosacral region 03/17/2019 11/27/2022 Lumbosacral stenosis 03/17/2019 023 Poor posture 03/17/2019 11/27/2022 Wound infection after surgery 11/24/2018 04/03/2023 Overview: Had sepsis and multiple admissions after lumbar burger 07/09 Had wound vac and IV antibiotics Infection due to Enterobacter cloacae 08/31/201807/08/2023 Bacteremia due to methicilli n susceptible Staphylococcus aureus (MSSA) 08/28/2018 07/08/2023 07/08/2023 MSSA (methicillin susceptibl e Staphylococcus aureus) infection 08/28/2018 07/08/2023 07/08/2023 Altered mental status 08/04/2018 07/08/20232022 Diarrhea 08/04/2018 07/08/2023 07/08/2023 Encephalopathy 08/01/2018 07/08/2023 07/08/2023 Spinal stenosis, 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 Primary localized osteoarthrosis, lower leg 02/13/2010 12/11/2010 Anxiety state, unspecified 06/07/2005 0 12/11/2010 Depressive disorder, not elsewhere classified 06/07/20 05 12/11/2010 Carpal tunnel syndrome 06/07/200512/11 documented as of this encounter (statuses as of 11/09/2023) [facility] History of Past illness Narrative* Problem Noted Date Diagnosed Date Resolved Date Facial paresthesia 07/08/2023 07/08/2023 Hypertensive urgency 07/08/2023 07/08/2023 023 Left arm pain 04/14/2023 07/08/2023 Neck pain 04/14/2023 07/08/2023 Acute cholecystitis 08/21/2022 07/08/2023 07/08/20 Injury of kidney 08/21/2022 07/08/2023 07/08/2023 Abnormal mammogram 05/03/2022 Acute anoxic encephalopathy 06/01/2021 07/08/2023 07/08/2023 Hypokalemia 05/30/2021 05/31/2021 Hyponatremia 05/30/2021 05/31/2021 Delirium 05/28/2021 05/31/2021 Angioedema 05/19/2021 05/31/2021 Mild protein-calorie malnutrition 05/19/2021 04/03/2023 Grayson angina 05/18/2021 05/19/2021 Acute respiratory failure with hypoxia 05/18/2021 05/31/2021 Lymphadenopathy, generalized 05/18/2021 11/27/2022 Chronic tension-type headache, intractable 07/07/2019 11/27/2022 Intractable chronic migraine without aura and without status migrainosus 07/07/2019 11/27/2022 Last Assessment & Plan: Assessment: otc analgesics as needed Cervicalgia 07/07/2019 11/27/2022 Chronic daily headache 07/07/201911/27 History of lumbar fusion 03/17/201904/2023 Last Assessment & Plan: Assessment: h/o Acquired spondylolisthesis o f lumbosacral region 03/17/2019 11/27/2022 Lumbosacral stenosis 03/17/2019 023 Poor posture 03/17/2019 11/27/2022 Wound infection after surgery 11/24/2018 04/03/2023 Overview: Had sepsis and multiple admissions after lumbar burger 07/09 Had wound vac and IV antibiotics Infection due to Enterobacter cloacae 08/31/201807/08/2023 Bacteremia due to methicilli n susceptible Staphylococcus aureus (MSSA) 08/28/2018 07/08/2023 07/08/2023 MSSA (methicillin susceptibl e Staphylococcus aureus) infection 08/28/2018 07/08/2023 07/08/2023 Altered mental status 08/04/2018 07/08/20232022 Diarrhea 08/04/2018 07/08/2023 07/08/2023 Encephalopathy 08/01/2018 07/08/2023 07/08/2023 Spinal stenosis, 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 Primary localized osteoarthrosis, lower leg 02/13/2010 12/11/2010 Anxiety state, unspecified 06/07/2005 0 12/11/2010 Depressive disorder, not elsewhere classified 06/07/20 05 12/11/2010 Carpal tunnel syndrome 06/07/200512/11 documented as of this encounter (statuses as of 12/25/2023) [facility] History of Past illness Narrative* Problem Noted Date Diagnosed Date Resolved Date Facial paresthesia 07/08/2023 07/08/2023 Hypertensive urgency 07/08/2023 07/08/2023 023 Left arm pain 04/14/2023 07/08/2023 Neck pain 04/14/2023 07/08/2023 Acute cholecystitis 08/21/2022 07/08/2023 07/08/20 23 Injury of kidney 08/21/2022 07/08/2023 07/08/2023 Abnormal mammogram 05/03/2022 Acute anoxic encephalopathy 06/01/2021 07/08/2023 07/08/2023 Hypokalemia 05/30/2021 05/31/2021 Hyponatremia 05/30/2021 05/31/2021 Delirium 05/28/2021 05/31/2021 Angioedema 05/19/2021 05/31/2021 Mild protein-calorie malnutrition 05/19/2021 04/03/2023 Grayson angina 05/18/2021 05/19/2021 Acute respiratory failure with hypoxia 05/18/2021 05/31/2021 Lymphadenopathy, generalized 05/18/2021 11/27/2022 Chronic tension-type headache, intractable 07/07/2019 11/27/2022 Intractable chronic migraine without aura and without status migrainosus 07/07/2019 11/27/2022 Last Assessment & Plan: Assessment: otc analgesics as needed Cervicalgia 07/07/2019 11/27/2022 Chronic daily headache 07/07/201911/27 History of lumbar fusion 03/17/201904/2023 Last Assessment & Plan: Assessment: h/o Acquired spondylolisthesis o f lumbosacral region 03/17/2019 11/27/2022 Lumbosacral stenosis 03/17/2019 023 Poor posture 03/17/2019 11/27/2022 Wound infection after surgery 11/24/2018 04/03/2023 Overview: Had sepsis and multiple admissions after lumbar burger 07/09 Had wound vac and IV antibiotics Infection due to Enterobacter cloacae 08/31/201807/08/2023 Bacteremia due to methicilli n susceptible Staphylococcus aureus (MSSA) 08/28/2018 07/08/2023 07/08/2023 MSSA (methicillin susceptibl e Staphylococcus aureus) infection 08/28/2018 07/08/2023 07/08/2023 Altered mental status 08/04/2018 07/08/20232022 Diarrhea 08/04/2018 07/08/2023 07/08/2023 Encephalopathy 08/01/2018 07/08/2023 07/08/2023 Spinal stenosis, 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 Primary localized osteoarthrosis, lower leg 02/13/2010 12/11/2010 Anxiety state, unspecified 06/07/2005 0 12/11/2010 Depressive disorder, not elsewhere classified 06/07/20 05 12/11/2010 Carpal tunnel syndrome 06/07/200512/11 documented as of this encounter (statuses as of 12/25/2023) [facility] History of Past illness Narrative* Problem Noted Date Diagnosed Date Resolved Date Facial paresthesia 07/08/2023 07/08/2023 3 Hypertensive urgency 07/08/2023 07/08/2023 023 Left arm pain 04/14/2023 07/08/2023 Neck pain 04/14/2023 07/08/2023 Acute cholecystitis 08/21/2022 07/08/2023 07/08/20 23 Injury of kidney 08/21/2022 07/08/2023 07/08/2023 Abnormal mammogram 05/03/2022 Acute anoxic encephalopathy 06/01/2021 07/08/2023 07/08/2023 Hypokalemia 05/30/2021 05/31/2021 Hyponatremia 05/30/2021 05/31/2021 Delirium 05/28/2021 05/31/2021 Angioedema 05/19/2021 05/31/2021 Mild protein-calorie malnutrition 05/19/2021 04/03/2023 Grayson angina 05/18/2021 05/19/2021 Acute respiratory failure with hypoxia 05/18/2021 05/31/2021 Lymphadenopathy, generalized 05/18/2021 11/27/2022 Chronic tension-type headache, intractable 07/07/2019 11/27/2022 Intractable chronic migraine without aura and without status migrainosus 07/07/2019 11/27/2022 Last Assessment & Plan: Assessment: otc analgesics as needed Cervicalgia 07/07/2019 11/27/2022 Chronic daily headache 07/07/201911/27 History of lumbar fusion 03/17/201904/2023 Last Assessment & Plan: Assessment: h/o Acquired spondylolisthesis o f lumbosacral region 03/17/2019 11/27/2022 Lumbosacral stenosis 03/17/2019 023 Poor posture 03/17/2019 11/27/2022 Wound infection after surgery 11/24/2018 04/03/2023 Overview: Had sepsis and multiple admissions after lumbar burger 07/09 Had wound vac and IV antibiotics Infection due to Enterobacter cloacae 08/31/201807/08/2023 Bacteremia due to methicilli n susceptible Staphylococcus aureus (MSSA) 08/28/2018 07/08/2023 07/08/2023 MSSA (methicillin susceptibl e Staphylococcus aureus) infection 08/28/2018 07/08/2023 07/08/2023 Altered mental status 08/04/2018 07/08/20232022 Diarrhea 08/04/2018 07/08/2023 07/08/2023 Encephalopathy 08/01/2018 07/08/2023 07/08/2023 Spinal stenosis, 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 Primary localized osteoarthrosis, lower leg 02/13/2010 12/11/2010 Anxiety state, unspecified 06/07/2005 0 12/11/2010 Depressive disorder, not elsewhere classified 06/07/20 05 12/11/2010 Carpal tunnel syndrome 06/07/200512/11 documented as of this encounter (statuses as of 01/02/2024) [facility] History of Past illness Narrative* Problem Noted Date Diagnosed Date Resolved Date Complication of surgical procedure 07/08/2023202201/07/2024 Facial paresthesia 07/08/2023 07/08/2023 History of migraine 07/08/2023 07/08/2023 01/07/20 24 Hypertensive urgency 07/08/2023 07/08/2023 023 Left arm pain 04/14/2023 07/08/2023 Neck pain 04/14/2023 07/08/2023 Acute cholecystitis 08/21/2022 07/08/2023 07/08/20 23 Injury of kidney 08/21/2022 07/08/2023 07/08/2023 Abnormal mammogram 05/03/2022 Acute anoxic encephalopathy 06/01/2021 07/08/2023 07/08/2023 Obesity, Class II, BMI 35-39.9 05/31/2021 01/07/2024 Hypokalemia 05/30/2021 05/31/2021 Hyponatremia 05/30/2021 05/31/2021 Delirium 05/28/2021 05/31/2021 Angioedema 05/19/2021 05/31/2021 Mild protein-calorie malnutrition 05/19/2021 04/03/2023 Grayson angina 05/18/2021 05/19/2021 Acute respiratory failure with hypoxia 05/18/2021 05/31/2021 Lymphadenopathy, generalized 05/18/2021 11/27/2022 Chronic tension-type headache, intractable 07/07/2019 11/27/2022 Intractable chronic migraine without aura and without status migrainosus 07/07/2019 11/27/2022 Last Assessment & Plan: Assessment: otc analgesics as needed Cervicalgia 07/07/2019 11/27/2022 Chronic daily headache 07/07/201911/27 History of lumbar fusion 03/17/201904/2023 Last Assessment & Plan: Assessment: h/o Acquired spondylolisthesis o f lumbosacral region 03/17/2019 11/27/2022 Lumbosacral stenosis 03/17/2019 023 Poor posture 03/17/2019 11/27/2022 Wound infection after surgery 11/24/2018 04/03/2023 Overview: Had sepsis and multiple admissions after lumbar burger 07/09 Had wound vac and IV antibiotics Infection due to Enterobacter cloacae 08/31/201807/08/2023 Bacteremia due to methicilli n susceptible Staphylococcus aureus (MSSA) 08/28/2018 07/08/2023 07/08/2023 MSSA (methicillin susceptibl e Staphylococcus aureus) infection 08/28/2018 07/08/2023 07/08/2023 Altered mental status 08/04/2018 07/08/20232022 Diarrhea 08/04/2018 07/08/2023 07/08/2023 Encephalopathy 08/01/2018 07/08/2023 07/08/2023 Spinal stenosis, 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 Primary localized osteoarthrosis, lower leg 02/13/2010 12/11/2010 Anxiety state, unspecified 06/07/2005 0 12/11/2010 Depressive disorder, not elsewhere classified 06/07/20 05 12/11/2010 Carpal tunnel syndrome 06/07/200512/11 documented as of this encounter (statuses as of 01/08/2024) [facility] History of Past illness Narrative* Problem Noted Date Diagnosed Date Resolved Date Complication of surgical procedure 07/08/2023202201/07/2024 Facial paresthesia 07/08/2023 07/08/2023 History of migraine 07/08/2023 07/08/2023 01/07/20 24 Hypertensive urgency 07/08/2023 07/08/2023 023 Left arm pain 04/14/2023 07/08/2023 Neck pain 04/14/2023 07/08/2023 Acute cholecystitis 08/21/2022 07/08/2023 07/08/20 23 Injury of kidney 08/21/2022 07/08/2023 07/08/2023 Abnormal mammogram 05/03/2022 3 Acute anoxic encephalopathy 06/01/2021 07/08/2023 07/08/2023 Obesity, Class II, BMI 35-39.9 05/31/2021 01/07/2024 Hypokalemia 05/30/2021 05/31/2021 Hyponatremia 05/30/2021 05/31/2021 Delirium 05/28/2021 05/31/2021 Angioedema 05/19/2021 05/31/2021 Mild protein-calorie malnutrition 05/19/2021 04/03/2023 Grayson angina 05/18/2021 05/19/2021 Acute respiratory failure with hypoxia 05/18/2021 05/31/2021 Lymphadenopathy, generalized 05/18/2021 11/27/2022 Chronic tension-type headache, intractable 07/07/2019 11/27/2022 Intractable chronic migraine without aura and without status migrainosus 07/07/2019 11/27/2022 Last Assessment & Plan: Assessment: otc analgesics as needed Cervicalgia 07/07/2019 11/27/2022 Chronic daily headache 07/07/201911/27 History of lumbar fusion 03/17/201904/2023 Last Assessment & Plan: Assessment: h/o Acquired spondylolisthesis o f lumbosacral region 03/17/2019 11/27/2022 Lumbosacral stenosis 03/17/2019 023 Poor posture 03/17/2019 11/27/2022 Wound infection after surgery 11/24/2018 04/03/2023 Overview: Had sepsis and multiple admissions after lumbar burger 07/09 Had wound vac and IV antibiotics Infection due to Enterobacter cloacae 08/31/201807/08/2023 Bacteremia due to methicilli n susceptible Staphylococcus aureus (MSSA) 08/28/2018 07/08/2023 07/08/2023 MSSA (methicillin susceptibl e Staphylococcus aureus) infection 08/28/2018 07/08/2023 07/08/2023 Altered mental status 08/04/2018 07/08/20232022 Diarrhea 08/04/2018 07/08/2023 07/08/2023 Encephalopathy 08/01/2018 07/08/2023 07/08/2023 Spinal stenosis, 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 Primary localized osteoarthrosis, lower leg 02/13/2010 12/11/2010 Anxiety state, unspecified 06/07/2005 0 12/11/2010 Depressive disorder, not elsewhere classified 06/07/20 05 12/11/2010 Carpal tunnel syndrome 06/07/200512/11 documented as of this encounter (statuses as of 01/09/2024) [facility] History of Present illness Narrative* Noel Guadarrama Mammo Tech - 07/08/2023 11:10 AM EDT Radiology Service Progress Note PATIENT NAME: Lisa Up DATE OF SERVICE: July 08, 2023 TIME: 11:47 AM PATIENT IDENTITY VERIFICATION COMPLETED USING TWO (2) IDENTIFIERS: Name and Date of confirmedby patient verbally. FALL SCREENING: Has the patient had 2 falls in the last year or 1 fall with injury or currently using an Ambulatory Assistive Device (Walker, Cane, Wheelchair, Crutches, etc.)? Yes, Patient High Riskfor Falls What interventions were put in place to prevent falls during this visit? Increased Observations by Caregivers PATIENT GENDER DATA: Female. status: : No status: NO. 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 CR after 2 cycles. Did brief maintenance rituxan, then appropriately stopped CLINICAL IMPRESSION: Follicular grade 1-2 NHL as above, clinically in remission RECOMMENDATION/PLAN: 1. See back 6 months 2. Mammogram due Written and verbal health teaching given to patient, patient verbalizes understanding and agrees with treatment plan. PAST MEDICAL HISTORY Diagnosis Date ANXIETY STATE NOS 06/07/2005 Arthritis Cancer (HCC) Carpal tunnel syndrome 06/07/2005 Cholelithiasis 06/17/2012 DEPRESSIVE DISORDER NEC 06/07/2005 Diverticulosis of colon (without mention of hemorrhage) Dizziness and giddiness 02/26/2010 GENERAL OSTEOARTHROSIS 06/07/2005 Goiter, unspecified 12/11/2010 Headache(784.0) 02/26/2010 Chronic. 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 Ramírez, severe PAST SURGICAL HISTORY Procedure Laterality Date ABDOMINAL SURGERY HX ARTHRP KNE CONDYLE&PLATU MEDIAL&LAT COMPARTMENTS February2010 Knee replacement, total, Left ARTHRP KNE CONDYLE&PLATU MEDIAL&LAT COMPARTMENTS 07/2010 Knee replacement, total, Right BACK SURGERY HX COLONOSCOPY FLX DX W/COLLJ SPEC WHEN PFRMD 06/05/2011 Colonoscopy COLONOSCOPY FLX DX W/COLLJ SPEC WHEN PFRMD N/A 12/04/2016 ESOPHAGOGASTRODUODENOSCOPY TRANSORAL DIAGNOSTIC N/A 12/04/2016 DEVORA FILTER 2019 INSJ TUNNELED CTR VAD W/SUBQ PORT AGE 5 YR/> 06/05/2022 JOINT REPLACEMENT HX L'SCOPE CHOLECYSTECTOMY 07/30/2022 Dr Gonzalez NEPHRECTOMY PARTIAL 1986 Nephrectomy, partial left (benign) PAST SURGICAL HISTORY OF 06/2018 lumbar burger with wound infection TONSILLECTOMY HX TOTAL ABDOMINAL HYSTERECT W/WO RMVL TUBE OVARY 1985 Hysterectomy, NEISHA VAGINAL HYSTERECTOMY FAMILY HISTORY Problem Relation Age of Onset Heart Mother Cancer Mother lung Heart Father other (Other) Father Heart Brother [place], aneurysm Migraines Daughter Macular Degen Maternal Aunt Social History Tobacco Use Smoking status: Never Smokeless tobacco: Never Vaping Use Vaping Use: Never used Substance Use Topics Alcohol use: No Drug use: No ALLERGIES: ALLERGIES Allergen Reactions Adhesive Rash Blisters and dermatitis from op site dressing and tape Covid-19 Vaccine, M* Anaphylaxis Erythromycin Rash, GI Upset Urticarial rash, seen in [place] ER Latex Swelling Lisinopril Swelling Nafcillin Itching 06/29/21 negative penicillin skin testing. Passed oral amoxicillin challenge. Nifedipine Rash Norvasc [Amlodipine* Swelling Wasps Mental Status Change, Rash CURRENT OUTPATIENT MEDICATIONS: carvedilol (COREG) 25 mg tablet Take 1 tablet by mouth twice daily. hydrALAZINE (APRESOLINE) 50 mg tablet Take 1 tablet by mouth twice daily. gabapentin (NEURONTIN) 400 mg capsule Take 1 capsule by mouth every 8 hours for 180 days. levothyroxine (SYNTHROID) 75 mcg tablet Take 1 tablet by mouth daily before breakfast. potassium chloride (K-TAB) 10 mEq tablet Take 1 tablet by mouth twice daily. OTC PRODUCT Super Snooze with Melatonin: Take one capsule by mouth at bedtime as needed. acetaminophen 650 mg CR tablet Take 650 mg by mouth every 8 hours as needed. omeprazole (PRILOSEC) 20 mg capsule Take 1 capsule by mouth twice daily. 1/2 hr before meal. EPINEPHrine (EPIPEN) 0.3 mg/0.3 mL auto-injector Use as directed multivitamin/iron/folic acid (CENTRUM ULTRA WOMEN'S ORAL) Take 1 tablet by mouth once daily. triamterene-hydroCHLOROthiazide (MAXZIDE-25) 37.5-25 mg per tablet Take 1 tablet by mouth once daily. (Patient not taking: Reported on 04/17/2023) hydroCHLOROthiazide 12.5 mg capsule Take 1 capsule by mouth once daily. (Patient not taking: Reported on 06/13/2023) [DISCONTINUED] hydrALAZINE (APRESOLINE) 25 mg tablet Take 2 tablets by mouth twice daily. REVIEW OF SYSTEMS: GENERAL: No fever, night sweats, weight loss or malaise. All other reviewed and negative other than HPI. PHYSICAL EXAMINATION: VITAL SIGNS: BP 110/66 Pulse 72 Temp 98 Wt 234 lb 8 oz (106.4kg) SpO2 97% GENERAL APPEARANCE: Well appearing, in no acute distress, alert and oriented x3, well-hydrated, well nourished. No palpable adenopathy, right axillary area normal I spent a total of 40 minutes on the date of the service which included preparing to see the patient, [id number] patient care, completing clinical documentation, obtaining and/or reviewing separately obtained history, performing a medically appropriate examination, ordering medications, tests, or procedures, independently interpreting results (not separately reported), and communicating resultsto the patient/family/caregiver. Electronically Signed: Prince Fang MD June 13, 2023 10:16 AM documented in this encounterAcmc [facility] System09-15-2023 History of Present illness Narrative* Vy Duong, RN - 06/06/2023 11:[address] contrast dye to pt after flushing power port with 10ml of Normal saline. Once CT completed flushed power port with 20ml of normal saline and 5ml of Heparin flush. After flushing removed power port needle and covered with 2x2 and paper tape. Pt tolerated well. Vy Duong Rn documented in this encounterAcmc Healthcare System09-15-2023 History of Present illness Narrative* Dannielle Doll RT(R) - 06/06/2023 10:20 AM EDT Radiology Service Progress Note PATIENT NAME: Lisa Up DATE OF SERVICE: June 06, 2023 TIME: 3:57 PM PATIENT IDENTITY VERIFICATION COMPLETED USING TWO (2) IDENTIFIERS: Name and Date of confirmedby patient verbally. FALL SCREENING: Has the patient had 2 falls in the last year or 1 fall with injury or currently using an Ambulatory Assistive Device (Walker, Cane, Wheelchair, Crutches, etc.)? No PATIENT GENDER DATA: Female. status: : No status: NO. PATIENT RELEVANT IMPLANT DATA REVIEWED: Yes RADIOLOGY DEPARTMENT: CT; Exam(s) Completed: Chest Abdomen Pelvis PERIPHERAL IV DATA: power port accessed by [employer] SIGNED BY: RT Blanca(R) June 06, 2023 3:57 PM documented in this encounterAcmc Healthcare System09-14-2023 Miscellaneous Notes* Telephone Encounter - Lou Rincon - 06/05/2023 11:01 AM EDT Spoke with patient and scheduled. Lou Rincon * Telephone Encounter - Azalea Link PSS - 06/05/2023 10:50 AM EDT Pt would like to use port for appt on 06/06/[address] @ 9:20 oral / 10:20 scan Please call pt to confirm thank documented in this encounterAcmc Healthcare System08-22-2023 History of Present illness Narrative* Abdullahi Guerra, PT - 05/13/2023 11:19 AM EDT Episode Visit Count: 6 Therapist That Will Accept/Oversee The Plan Of Care: Abdullahi Guerra, PT, DPT. Start of Care Date: 04/14/23 Onset Date: 03/24/23 (approx. 3-5 weeks ago.) Plan of Care Certification Date: 04/14/23 Next Certification Due Date: 05/19/23 Patient Identified by Name and Date of : Yes REHABILITATION AND SPORTS THERAPY PHYSICAL THERAPY TREATMENT NOTE ASSESSMENT: Lisa Up tolerated the session with decreased activity tolerance due to increased L shoulder soreness this date, and experienced expected muscle soreness and decreased symptoms following interventions. She demonstrated difficulty with shoulder raises this date due to fatigue. The patient will continue to benefit from ongoing skilled physical therapy to progress toward set goals. PLAN FOR NEXT VISIT: Progress check; Manual PRN; scapular strengthening as able. SUBJECTIVE: Patient reports L shoulder and scapula pain and soreness this date from a long weekend of being up and about and picking up rollator to put in the car; states she felt better following last session. Pain: Pain Pain Level: 4 Pain Location: Scapula - Left, Shoulder - Left Description: Aching, Sore Post Treatment Pain Post Treatment Pain Level: Better Post Treatment Pain Location: Shoulder - Left OBJECTIVE MEASURES WITH LEVEL OF FUNCTION: Tenderness noted with palpation to L periscap region james. L UT & L C/S paraspinals to rhomboids. TREATMENT: Therapeutic Exercise: 1: L Levator Scap Stretch: 3x30 2: L UT Stretch:3x30 3: Seated Rhomboid Stretch: 3x30 4: B Shoudler Flexion Raises: 2x12, 1#db. 5: B Shoulder T Raises: 1x12, 1#db. 6: B Shoulder Scaption Raises: 1x12, 1#db. 7: Seated Rows, PTB: 2x10 Skilled Intervention: Patient was educated in proper exercise technique and purpose for exercises. Skilled judgment was provided in selection of appropriate interventions. Correct performance of therapeutic exercises was facilitated with verbal, visual, and tactile cuing. Manual Therapy: 1: IaSTM to L UT, Paraspinal, Rhomboid: Push to tolerance. 2: STM to L UT & Paraspinals with lacrosse ball: Push to patient tolerance. Skilled Intervention: Manual skills to improve joint mobility, ROM, and decrease pain. Utilized anatomy knowledge of the therapist, and assessment of patient's response to intervention. Billing Therapeutic Exercise Treatment Minutes: 18 Manual TherapyTreatment Minutes: 14 Total Treatment Time Minutes (timed/untimed): 32 Session Start Time : 1116 Session Stop Time : 1148 Abdullahi Guerra PT documented in this encounterAcmc Healthcare System08-18-2023 History of Present illness Narrative* Abdullahi Guerra PT - 05/09/2023 1:00 PM EDT Episode Visit Count: 5 Therapist That Will Accept/Oversee The Plan Of Care: Abdullahi Guerra PT, DPT. Start of Care Date: 04/14/23 Onset Date: 03/24/23 (approx. 3-5 weeks ago.) Plan of Care Certification Date: 04/14/23 Next Certification Due Date: 05/19/23 Patient Identified by Name and Date of : Yes REHABILITATION AND SPORTS THERAPY PHYSICAL THERAPY TREATMENT NOTE ASSESSMENT: Lisa Up tolerated the session with decreased symptoms, expected muscle soreness, and no issues. She demonstrated improvements in tissue restriction and symptom reduction during today's visit. The patient will continue to benefit from ongoing skilled physical therapy to progresstoward set goals. PLAN FOR NEXT VISIT: Manual PRN; Add theraband rows. SUBJECTIVE: Patient reports she probably slept on her L Shoulder and has increased achiness this date; overall patient reports the L shoulder has been improving. Pain: Pain Pain Level: 5 Pain Location: Shoulder - Left Description: Aching, Sore Frequency: Continuous Post Treatment Pain Post Treatment Pain Level: Better Post Treatment Pain Location: Shoulder - Left OBJECTIVE MEASURES WITH LEVEL OF FUNCTION: Trigger point in L UT this date. Patient with rounded shoulders and forward head sitting posture - improved with constant cueing. TREATMENT: Therapeutic Exercise: 1: L Levator Scap Stretch: 3x30 2: L UT Stretch:3x30 3: Seated Rhomboid Stretch: 3x30 4: B Shoudler Flexion Raises: 2x10, 1#db. 5: B Shoulder T Raises: 2x10, 1#db. 6: B Shoulder Scaption Raises: 2x10, 1#db. 7: Seated IR, PTB: 2x10 LUE 8: Seated ER, PTB: 2x10 LUE 9: Education on proper sitting posture and standing/walking posture with rollator. Skilled Intervention: Patient was educated in proper exercise technique and purpose for exercises. Skilled judgment was provided in selection of appropriate interventions. Correct performance of therapeutic exercises was facilitated with verbal and tactile cuing. Manual Therapy: 1: IaSTM to L UT, Paraspinal, Rhomboid: Push to tolerance. 2: STM and TPR to L UT: Push to patient tolerance. Skilled Intervention: Manual skills to improve joint mobility, ROM, and decrease pain. Utilized anatomy knowledge of the therapist, and assessment of patient's response to intervention. Billing Therapeutic Exercise Treatment Minutes: 30 Manual TherapyTreatment Minutes: 11 Total Treatment Time Minutes (timed/untimed): 41 Session Start Time : 1300 Session Stop Time : 1341 Abdullahi Guerra PT documented in this encounterAcmc Healthcare System08-15-2023 History of Present illness Narrative* Abdullahi Guerra PT - 05/06/2023 11:50 AM EDT Episode Visit Count: 4 Therapist That Will Accept/Oversee The Plan Of Care: Abdullahi Guerra PT, DPT. Start of Care Date: 04/14/23 Onset Date: 03/24/23 (approx. 3-5 weeks ago.) Plan of Care Certification Date: 04/14/23 Next Certification Due Date: 05/19/23 Patient Identified by Name and Date of : Yes REHABILITATION AND SPORTS THERAPY PHYSICAL THERAPY TREATMENT NOTE ASSESSMENT: Lisa Up tolerated the session with decreased symptoms and expected muscle soreness. She demonstrated improvements in tolerance to strengthening of L shoulder. The patient will continue to benefit from ongoing skilled physical therapy to progress toward set goals. PLAN FOR NEXT VISIT: Continue with light shoulder strengthening as able. SUBJECTIVE: Pt reports that her shoulder is a lot better. Pt has intermittent pain and aching. Pt states that her neck is not too bad, gets sharp pains in it with certain movements. Pain: Pain Pain Level: 4 Pain Location: Shoulder - Left Post Treatment Pain Post Treatment Pain Level: 0 Post Treatment Pain Location: Shoulder - Left OBJECTIVE MEASURES WITH LEVEL OF FUNCTION: Good technique noted with IR and ER with theraband. TREATMENT: Therapeutic Exercise: 1: L Levator Scap Stretch: 3x30 2: L UT Stretch:3x30 3: Seated scapular retractions 2x10 4: Shoudler flexion AROM 1x10, then 1x5 5: Shoulder abduction 1 x10, then 1x5 6: Shoulder scaption 1x 10, then 1x5 7: *Seated IR with pink theraband 2x10 8: *Seated ER with pink theraband 2x10 Skilled Intervention: Patient was educated in proper exercise technique and purpose for exercises. Reviewed and educated patient on additions/changes for home exercise program as above (*). Skilled judgment was provided in selection of appropriate interventions. Provided written instruction for home exercise program to facilitate proper performance and compliance. Correct performance of therapeutic exercises was facilitated with verbal and visual cuing. Manual Therapy: 1: STM to L rhomboids with tennis ball x 10 minutes Skilled Intervention: Manual skills to improve joint mobility, ROM, and decrease pain. Utilized anatomy knowledge of the therapist, and assessment of patient's response to intervention. Billing Therapeutic Exercise Treatment Minutes: 30 Manual TherapyTreatment Minutes: 10 Total Treatment Time Minutes (timed/untimed): 40 Session Start Time : 1145 Session Stop Time : 1225 LENCHO Vargas PT, DPT. documented in this encounterAcmc Healthcare System08-08-2023 History of Present illness Narrative* Abdullahi Guerra PT - 04/29/2023 2:03 PM EDT Episode Visit Count: 3 Therapist That Will Accept/Oversee The Plan Of Care: Abdullahi Guerra, PT, DPT. Start of Care Date: 04/14/23 Onset Date: 03/24/23 (approx. 3-5 weeks ago.) Plan of Care Certification Date: 04/14/23 Next Certification Due Date: 05/19/23 Patient Identified by Name and Date of : Yes REHABILITATION AND SPORTS THERAPY PHYSICAL THERAPY TREATMENT NOTE ASSESSMENT: Lisa Up tolerated the session with decreased symptoms. She demonstrated improvements in flexibility of cervical spine after manual stretching. The patient will continue to benefit from ongoing skilled physical therapy to progress toward set goals. PLAN FOR NEXT VISIT: Manual PRN; L Shoulder strengthening and active motion as able. SUBJECTIVE: Pt reports that her shoulder is sore today, but not into major pain like it was. Pt states that some nights when her shoulder getrs to hurting to bad she has to switch from her bed to therecliner to sleep. Pt completed HEP, but not as frequently due to having a family reunion over the weekend. Pain: Pain Pain Level: 6 Pain Location: Shoulder - Left Post Treatment Pain Post Treatment Pain Level: Better Post Treatment Pain Location: Shoulder - Left OBJECTIVE MEASURES WITH LEVEL OF FUNCTION: Patient tissue restriction in L UT this date. TREATMENT: Therapeutic Exercise: 1: L Levator Scap Stretch: 3x30 2: L UT Stretch:3x30 3: Seated IR isometric with wand with elbows at 90 degrees and 0 degrees of abduction x10 with 5 second holds 4: Seated ER isometric with wand with elbows at 90 degrees and 0 degrees of abduction x10 with 5 second holds 5: Shoudler flexion AROM 1x10 in pain-free range Skilled Intervention: Patient was educated in proper exercise technique and purpose for exercises. Skilled judgment was provided in selection of appropriate interventions. Correct performance of therapeutic exercises was facilitated with verbal and visual cuing. Manual Therapy: 1: STM and trigeerpoint release to L UT 2: Manual stretching of L UT and levator scap x 10 each 3: IASTM to L deltoid and biceps and into elbow x 10 minutes Skilled Intervention: Manual skills to improve joint mobility, ROM, and decrease pain. Utilized anatomy knowledge of the therapist, and assessment of patient's response to intervention. Billing Therapeutic Exercise Treatment Minutes: 20 Manual TherapyTreatment Minutes: 25 Total Treatment Time Minutes (timed/untimed): 45 Session Start Time : 1400 Session Stop Time : 1445 Sidra Ahnpiyush, LENCHO Guerra, PT, DPT. documented in this encounterAcmc Healthcare System08-04-2023 History of Present illness Narrative* Abdullahi Guerra, PT - 04/25/2023 10:27 AM EDT Episode Visit Count: 2 Therapist That Will Accept/Oversee The Plan Of Care: Abdullahi Guerra PT, DPT. Start of Care Date: 04/14/23 Onset Date: 03/24/23 (approx. 3-5 weeks ago.) Plan of Care Certification Date: 04/14/23 Next Certification Due Date: 05/19/23 Patient Identified by Name and Date of : Yes REHABILITATION [facility] PHYSICAL THERAPY TREATMENT NOTE ASSESSMENT: Lisa Up tolerated the session with fatigue and expected muscle soreness. She demonstrated improvements in tolerance to AROM of L shoulder. The patient will continue to benefit from ongoing skilled physical therapy to progress toward set goals. PLAN FOR NEXT VISIT: Asses response to IASTM, SUBJECTIVE: Pt reports that her L shoulder was doing better until she had to lift a bag of trash and then it messed it all up again. Pt reports that she feels weak and dizzy today, didn't sleep well because of the pain. Pt also states she feels feverish. Pain: Pain Pain Level: 9 Pain Location: Shoulder - Left Post Treatment Pain Post Treatment Pain Level: Better Post Treatment Pain Location: Shoulder - Left Post Treatment Symptoms: Pt stated her shoulder felt better after IASTM OBJECTIVE MEASURES WITH LEVEL OF FUNCTION: Decreased motion with continued reps of L shoulder abduction TREATMENT: Therapeutic Exercise: 1: L Levator Scap Stretch: 3x30 2: L UT Stretch:3x30 3: L Posterior Capsular Stretch: 3x30 (verbal,visual, and tactile cues for proper technique) 4: Shoudler flexion AROM 2x10 in pain-free range 5: Shoulder abduction2 x10 6: Shoulder scaption 2x 10 7: *Seated wand flexion AAROM 1x10 (Given for HEP for painful days so pt does not lose any motion) 8: *Seated wand AAROm abduction (Given for HEP for painful days so pt does not lose any motion) Skilled Intervention: Patient was educated in proper exercise technique and purpose for exercises. Reviewed and educated patient on additions/changes for home exercise program as above (*). Skilled judgment was provided in selection of appropriate interventions. Provided written instruction for home exercise program to facilitate proper performance and compliance. Correct performance of therapeutic exercises was facilitated with verbal and visual cuing. Manual Therapy: 1: IASTM to L deltoid and biceps and into elbow x 8 minutes Skilled Intervention: Manual skills to improve joint mobility, ROM, and decrease pain. Utilized anatomy knowledge of the therapist, and assessment of patient's response to intervention. Billing Therapeutic Exercise Treatment Minutes: 36 Manual TherapyTreatment Minutes: 8 Total Treatment Time Minutes (timed/untimed): 44 Session Start Time : 1020 Session Stop Time : 1104 Sidra Calvert, CONGRESSIONAL REPRESENTATIVE Abdullahi Guerra, PT, DPT. documented in this encounterAcmc Healthcare System07-28-2023 History of Present illness Narrative* Mercy Lemus PA-C - 04/18/2023 5:57 PM EDT 5:57 PM Phoned and updated status: doing much better. Still duscomfot but not pain-pain Josse Lemus PA-C * Mercy Lemus PA-C - 04/17/2023 3:43 PM EDT 77 year old female with c/o left shoulder pain, worse than delivering her children. Over three weeks. Had fall week before that but didn't think it was related. Taking Tylenol Massage helped a little. On PT session, doing exercises. Sitting still not as bad. Getting up doing minimal things gets worse: radiates into back, into neck, into left breast, and left arm. No new numbness or tingling, loss of sensation. Recently increased gabapentin to 400mg three times daily. Has no life Some days are a little better. 03/24/2023 shoulder XR: No acute fracture or osseous malalignment is identified. The joint spaces arepreserved. No acute fracture. There is good alignment of the vertebrae. Uncovertebral joint space narrowing at multiple levels. large vertebral body osteophytes at C4-5. 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 There is no prevertebral soft tissue swelling. HISTORIES FAMILY HISTORY Problem Relation Age of Onset Heart Mother Cancer Mother lung Heart Father other (Other) Father Heart Brother [place], aneurysm Migraines Daughter Macular Degen Maternal Aunt PAST MEDICAL HISTORY Diagnosis Date ANXIETY STATE NOS 06/07/2005 Arthritis Cancer (HCC) Carpal tunnel syndrome 06/07/2005 Cholelithiasis 06/17/2012 DEPRESSIVE DISORDER NEC 06/07/2005 Diverticulosis of colon (without mention of hemorrhage) Dizziness and giddiness 02/26/2010 GENERAL OSTEOARTHROSIS 06/07/2005 Goiter, unspecified 12/11/2010 Headache(784.0) 02/26/2010 Chronic. 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 Ramírez, severe PAST SURGICAL HISTORY Procedure Laterality Date ABDOMINAL SURGERY HX ARTHRP KNE CONDYLE&PLATU MEDIAL&LAT COMPARTMENTS February2010 Knee replacement, total, Left ARTHRP KNE CONDYLE&PLATU MEDIAL&LAT COMPARTMENTS 07/2010 Knee replacement, total, Right BACK SURGERY HX COLONOSCOPY FLX DX W/COLLJ SPEC WHEN PFRMD 06/05/2011 Colonoscopy COLONOSCOPY FLX DX W/COLLJ SPEC WHEN PFRMD N/A 12/04/2016 ESOPHAGOGASTRODUODENOSCOPY TRANSORAL DIAGNOSTIC N/A 12/04/2016 DEVORA FILTER 2019 INSJ TUNNELED CTR VAD W/SUBQ PORT AGE 5 YR/> 06/05/2022 JOINT REPLACEMENT HX L'SCOPE CHOLECYSTECTOMY 07/30/2022 Dr Gonzalez NEPHRECTOMY PARTIAL 1986 Nephrectomy, partial left (benign) PAST SURGICAL HISTORY OF 06/2018 lumbar burger with wound infection TONSILLECTOMY HX TOTAL ABDOMINAL HYSTERECT W/WO RMVL TUBE OVARY 1985 Hysterectomy, NEISHA VAGINAL HYSTERECTOMY Social History Tobacco Use Smoking status: Never Smokeless tobacco: Never Vaping Use Vaping Use: Never used Substance Use Topics Alcohol use: No Drug use: No ACTIVE PROBLEM LIST Essential Hypertension Generalized Osteoarthrosis, Unspecified Site Hyperlipidemia, Unspecified Body Mass Index (Bmi) 40.0-44.9, Adult (Hcc) Other Specified Idiopathic Peripheral Neuropathy Allergic Rhinitis Nontoxic Multinodular Goiter Depressive Disorder, Not Elsewhere Classified Mixed Incontinence Urge and Stress Tinnitus of Both Ears Ocular Hypertension, Bilateral Optic Disc Cupping Combined Forms of Age-Related Cataract of Both Eyes Dry Eye Syndrome Vitreous Floaters of Both Eyes Meibomian Gland Dysfunction (Mgd) 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 Spinal Stenosis, Lumbar Region, With Neurogenic Claudication Essential Tremor Christian[place] (Obstructive Sleep Apnea) Spondylosis of Lumbar Region Without Myelopathy Or Radiculopathy History of Dvt (Deep Vein Thrombosis) Non-Rheumatic Tricuspid Valve Insufficiency Bilateral Carotid Artery Stenosis Chronic Migraine Without Aura, With Intractable Migraine, So Stated, With Status Migrainosus Difficult Airway Hypothyroid Obesity, Class II, Bmi 35-39.9 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 180 tablet 1 hydrALAZINE (APRESOLINE) 50 mg tablet Take 1 tablet by mouth twice daily. 180 tablet 1 gabapentin (NEURONTIN) 400 mg capsule Take 1 capsule by mouth every 8 hours for 180 days. 270 capsule 1 hydroCHLOROthiazide 12.5 mg capsule Take 1 capsule by mouth once daily. 30 capsule 12 levothyroxine (SYNTHROID) 75 mcg tablet Take 1 tablet by mouth daily before breakfast. 90 tablet 1 potassium chloride (K-TAB) 10 mEq tablet Take 1 tablet by mouth twice daily. 180 tablet 3 OTC PRODUCT Super Snooze with Melatonin: Take one capsule by mouth at bedtime as needed. lidocaine-prilocaine (EMLA) 2.5-2.5 % cream Apply to affected area as needed. 30 g 2 apixaban (ELIQUIS) 5 mg tab(s) Take 1 tablet by mouth twice daily. 180 tablet 3 acetaminophen 650 mg CR tablet Take 650 mg by mouth every 8 hours as needed. omeprazole (PRILOSEC) 20 mg capsule Take 1 capsule by mouth twice daily. 1/2 hr before meal. 60 capsule 5 EPINEPHrine (EPIPEN) 0.3 mg/0.3 mL auto-injector Use as directed 2 Each 1 multivitamin/iron/folic acid (CENTRUM ULTRA WOMEN'S ORAL) Take 1 tablet by mouth once daily. triamterene-hydroCHLOROthiazide (MAXZIDE-25) 37.5-25 mg per tablet Take 1 tablet by mouth once daily. (Patient not taking: Reported on 04/17/2023) No current facility-administered medications for this visit. SHINGRIX VACCINE(1 of 2) Never done ADVANCE DIRECTIVE DISCUSSION Never done EXAM: BP 132/84 Pulse 69 Resp 20 Wt 104.3 kg (230 lb) SpO2 97% BMI 42.87 kg/m Pleasant obese older woman in moderate expressed discomfort, guarding left arm. Alert and oriented all spheres. Normal affect and cognition. Speech normal. No deficits to learning or comprehension. Skin warm, dry, pink to lips and nailbeds. Normal turgor. Respirations regular and unlabored. Pain is actually not in shoulder or arm, locates to mid upper posterior thoracic left chest wall and semispinalis trigger points. Had restricted ribs inflexion. O'lbiorio's negative, negative Hawkin's. Limited ROM to 95 degrees flexion, 85 degrees abduction, posterior reaching not past hip. States she always has this limitation. Extrem: no clubbing or cyanosis. Edema: none. Extremities are warm and pink with prompt capillary refill. Myofascial release to muscular trigger points significantly improved pain. Unable to manipulate due to limitations with arm ROM. ASSESSMENT/PLAN: 1. Upper back pain on left side - ICD9: 724.5, ICD10: M54.9 Suspect somatic dysfunction. Pain improved with muscle release Prednisone 40mg daily x 5 days: Educated on new medication administration, warnings and cautions, common side effects, anticipated duration or therapy, and instructions on cessation management to avoid risks if stops medication. Patient choice was discussed in shared decision making. Low suspicion for cardio-pulmonary issues in absence of other sx. Check inflammatory markers prior to prednisone. - SED RATE WESTERGREN - C-REACTIVE PROTEIN (CRP) Mercy Lemus PA-C documented in this encounterAcmc Healthcare System07-27-2023 Miscellaneous Notes* Telephone Encounter - Danielle Greogry RN - 04/17/2023 7:06 PM EDT Spoke with patient. Let her know scripts sent to [facility]. Patient verbalizes understanding. Danielle Gregory RN * Telephone Encounter - Mercy Lemus PA-C - 04/17/2023 6:58 PM EDT The following approved medication requests have been transmitted electronically. Requested Prescriptions Signed Prescriptions Disp Refills lidocaine-prilocaine (EMLA) 2.5-2.5 % cream 30 g 2 Sig: Apply to affected area as needed for up to 7 days. Authorizing Provider: Mercy LEMUS predniSONE (DELTASONE) 20 mg tablet 10 tablet 0 Sig: Take 2 tablets by mouth once daily for 5 days. Authorizing Provider: Mercy LEMUS PA-C * Telephone Encounter - Danielle Gregory RN - 04/17/2023 5:23 PM EDT Patient calling to request scripts that were sent to [facility] be sent to [facility]. Pended per request. Danielle Gregory RN documented in this encounterAcmc Healthcare System07-27-2023 Instructions* Patient Instructions* Mercy Lemus PA-C - 04/17/2023 4:12 PM EDT Try tizanidine 4mg 1/2 tablet for pain Prednisone as directed. Ice/ moist heat, lineaments, OTC analgesics as needed. documented in this encounterAcmc Healthcare System07-24-2023 History of Past illness Narrative* Problem Noted Date Diagnosed Date Resolved Date Left arm pain 04/14/2023 07/08/2023 Neck pain 04/14/2023 07/08/2023 Acute cholecystitis 08/21/2022 07/08/2023 07/08/20 Injury of kidney 08/21/2022 07/08/2023 07/08/2023 Abnormal mammogram 05/03/2022 Acute anoxic encephalopathy 06/01/2021 07/08/2023 07/08/2023 Hypokalemia 05/30/2021 05/31/2021 Hyponatremia 05/30/2021 05/31/2021 Delirium 05/28/2021 05/31/2021 Angioedema 05/19/2021 05/31/2021 Mild protein-calorie malnutrition 05/19/2021 04/03/2023 Grayson angina 05/18/2021 05/19/2021 Acute respiratory failure with hypoxia 05/18/2021 05/31/2021 Lymphadenopathy, generalized 05/18/2021 11/27/2022 Chronic tension-type headache, intractable 07/07/2019 11/27/2022 Intractable chronic migraine without aura and without status migrainosus 07/07/2019 11/27/2022 Last Assessment & Plan: Assessment: otc analgesics as needed Cervicalgia 07/07/2019 11/27/2022 Chronic daily headache 07/07/201911/27 History of lumbar fusion 03/17/201904/2023 Last Assessment & Plan: Assessment: h/o Acquired spondylolisthesis o f lumbosacral region 03/17/2019 11/27/2022 Lumbosacral stenosis 03/17/2019 023 Poor posture 03/17/2019 11/27/2022 Wound infection after surgery 11/24/2018 04/03/2023 Overview: Had sepsis and multiple admissions after lumbar burger 07/09 Had wound vac and IV antibiotics Infection due to Enterobacter cloacae 08/31/201807/08/2023 Bacteremia due to methicilli n susceptible Staphylococcus aureus (MSSA) 08/28/2018 07/08/2023 07/08/2023 MSSA (methicillin susceptibl e Staphylococcus aureus) infection 08/28/2018 07/08/2023 07/08/2023 Altered mental status 08/04/2018 07/08/20232022 Diarrhea 08/04/2018 07/08/2023 07/08/2023 Encephalopathy 08/01/2018 07/08/2023 07/08/2023 Spinal stenosis, lumbar cydney on with neurogenic claudication 07/18/2017 11/27/2022 Overview: Added automatically from request for surgery [id number] Lumbar spondylosis 07/18/2017 Overview: Added automatically from request for surgery [id number] Chronic bilateral low back p ain with bilateral sciatica 04/28/2017 11/27/2022 Overview: Added automatically from request for surgery [id number] Obesity due to excess calori es, unspecified obesity severity E66.09 01/02/2017 11/27/2022 Last Assessment & Plan: Assessment: Body mass index is 40.42 kg/m . 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 Primary localized osteoarthrosis, lower leg 02/13/2010 12/11/2010 Anxiety state, unspecified 06/07/2005 0 12/11/2010 Depressive disorder, not elsewhere classified 06/07/20 05 12/11/2010 Carpal tunnel syndrome 06/07/200512/11 documented as of this encounter (statuses as of 07/27/2023) [facility] History of Past illness Narrative* Problem Noted Date Diagnosed Date Resolved Date Left arm pain 04/14/2023 07/08/2023 Neck pain 04/14/2023 07/08/2023 Acute cholecystitis 08/21/2022 07/08/2023 07/08/20 23 Injury of kidney 08/21/2022 07/08/2023 07/08/2023 Abnormal mammogram 05/03/2022 Acute anoxic encephalopathy 06/01/2021 07/08/2023 07/08/2023 Hypokalemia 05/30/2021 05/31/2021 Hyponatremia 05/30/2021 05/31/2021 Delirium 05/28/2021 05/31/2021 Angioedema 05/19/2021 05/31/2021 Mild protein-calorie malnutrition 05/19/2021 04/03/2023 Grayson angina 05/18/2021 05/19/2021 Acute respiratory failure with hypoxia 05/18/2021 05/31/2021 Lymphadenopathy, generalized 05/18/2021 11/27/2022 Chronic tension-type headache, intractable 07/07/2019 11/27/2022 Intractable chronic migraine without aura and without status migrainosus 07/07/2019 11/27/2022 Last Assessment & Plan: Assessment: otc analgesics as needed Cervicalgia 07/07/2019 11/27/2022 Chronic daily headache 07/07/201911/27 History of lumbar fusion 03/17/201904/2023 Last Assessment & Plan: Assessment: h/o Acquired spondylolisthesis o f lumbosacral region 03/17/2019 11/27/2022 Lumbosacral stenosis 03/17/2019 023 Poor posture 03/17/2019 11/27/2022 Wound infection after surgery 11/24/2018 04/03/2023 Overview: Had sepsis and multiple admissions after lumbar burger 07/09 Had wound vac and IV antibiotics Infection due to Enterobacter cloacae 08/31/201807/08/2023 Bacteremia due to methicilli n susceptible Staphylococcus aureus (MSSA) 08/28/2018 07/08/2023 07/08/2023 MSSA (methicillin susceptibl e Staphylococcus aureus) infection 08/28/2018 07/08/2023 07/08/2023 Altered mental status 08/04/2018 07/08/20232022 Diarrhea 08/04/2018 07/08/2023 07/08/2023 Encephalopathy 08/01/2018 07/08/2023 07/08/2023 Spinal stenosis, lumbar cydney on with neurogenic claudication 07/18/2017 11/27/2022 Overview: Added automatically from request for surgery [id number] Lumbar spondylosis 07/18/2017 Overview: Added automatically from request for surgery [id number] Chronic bilateral low back p ain with bilateral sciatica 04/28/2017 11/27/2022 Overview: Added automatically from request for surgery [id number] Obesity due to excess calori es, unspecified obesity severity E66.09 01/02/2017 11/27/2022 Last Assessment & Plan: Assessment: Body mass index is 40.42 kg/m . 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 Primary localized osteoarthrosis, lower leg 02/13/2010 12/11/2010 Anxiety state, unspecified 06/07/2005 0 12/11/2010 Depressive disorder, not elsewhere classified 06/07/20 05 12/11/2010 Carpal tunnel syndrome 06/07/200512/11 documented as of this encounter (statuses as of 07/27/2023) [facility] History of Present illness Narrative* Suad Joe, RT(R) - 04/03/2023 10:20 AM EDT Radiology Service Progress Note PATIENT NAME: Lisa Up DATE OF SERVICE: April 03, 2023 TIME: 10:18 AM PATIENT IDENTITY VERIFICATION COMPLETED USING TWO (2) IDENTIFIERS: Name and Date of confirmedby patient verbally. FALL SCREENING: Has the patient had 2 falls in the last year or 1 fall with injury or currently using an Ambulatory Assistive Device (Walker, Cane, Wheelchair, Crutches, etc.)? Yes, Patient High Riskfor Falls What interventions were put in place to prevent falls during this visit? Offered Assistance with Transfers/Clothing and Instructed Patient to Remain Seated (Not on Exam Table) Until Exam PATIENT GENDER DATA: Female. status: : No status: NO. PATIENT RELEVANT IMPLANT DATA REVIEWED: Not Applicable RADIOLOGY DEPARTMENT: General X-ray: Exam(s) Completed: Spine X-Ray(s): Cervical AP / LAT / OBL PERIPHERAL IV DATA: Not applicable SIGNED BY: RT Gi(R) April 03, 2023 10:18 AM documented in this encounterAcmc Healthcare System07-13-2023 History of Present illness Narrative* Sylvia Lizama MD - 04/03/2023 9:32 AM EDT Patient presents with: Follow Up: 3 month follow up HPI: Patient presents today for office visit for follow up. Feeling stressed and feels down due to pain in her shoulder. Blood pressure: Changed dose of HCTZ. Brought list today of what she is taking for her blood pressure and reports that this is controlling it. No chest pain or shortness of breath. No worsening swelling. Numbness: Legs/feet. Is on gabapentin. Having worsening burning at night. Using her walker. No new falls. Wondering about pain management? Saw previously in [place] for back and legs. Her shoulder is very painful. Did have a fall a few weeks before it began. Has had issues with chronic neck issues on and off. Does get more pain in her neck. Still with pain in left shoulder that is now going down her arm. Using Tylenol. Massage felt good but didn't help shoulder. Follows with heme onc regularly. Has stenosis of carotids. Due for recheck. Saw Elissa recently for her shoulder: Patient of Dr. Lizama here in the office for left shoulder pain, started hurting in the past 2 weeks.Refers she did have a fall about 3 weeks ago but is unsure if the fall caused the shoulder pain. Pain is sharp/pressure, waxes and wanes depending on position. Cannot lay on the left shoulder. Tried Tylenol which was not helpful. Refers that she took a pain pill that was leftover from surgery that helped with pain. Xray of shoulder was negative. MEDICATIONS: Current Outpatient Medications Medication Sig triamterene-hydroCHLOROthiazide (MAXZIDE-25) 37.5-25 mg per tablet Take 1 tablet by mouth once daily. tiZANidine (ZANAFLEX) 4 mg tablet Take 1 tablet by mouth every 8 hours as needed (muscle spasms) for up to 10 days. hydroCHLOROthiazide 12.5 mg capsule Take 1 capsule by mouth once daily. hydrALAZINE (APRESOLINE) 25 mg tablet Take 2 tablets by mouth twice daily. carvedilol (COREG) 25 mg tablet Take 1 tablet by mouth twice daily. levothyroxine (SYNTHROID) 75 mcg tablet Take 1 tablet by mouth daily before breakfast. potassium chloride (K-TAB) 10 mEq tablet Take 1 tablet by mouth twice daily. gabapentin (NEURONTIN) 300 mg capsule Take 1 capsule by mouth every 8 hours for 90 days. ZOLMitriptan (ZOMIG) 5 mg tablet Take 1 tablet by mouth as needed. OTC PRODUCT Super Snooze with Melatonin: Take one capsule by mouth at bedtime as needed. lidocaine-prilocaine (EMLA) 2.5-2.5 % cream Apply to affected area as needed. apixaban (ELIQUIS) 5 mg tab(s) Take 1 tablet by mouth twice daily. famotidine (PEPCID) 20 mg tablet Take 1 tablet by mouth twice daily as needed. (Patient not taking:Reported on 03/24/2023) prochlorperazine (COMPAZINE) 10 mg tablet Take 1 tablet by mouth every 6 hours as needed. acetaminophen 650 mg CR tablet Take 650 mg by mouth every 8 hours as needed. omeprazole (PRILOSEC) 20 mg capsule Take 1 capsule by mouth twice daily. 1/2 hr before meal. EPINEPHrine (EPIPEN) 0.3 mg/0.3 mL auto-injector Use as directed multivitamin/iron/folic acid (CENTRUM ULTRA WOMEN'S ORAL) Take 1 tablet by mouth once daily. No current facility-administered medications for this visit. ALLERGIES: ALLERGIES Allergen Reactions Adhesive Rash Blisters and dermatitis from op site dressing and tape Covid-19 Vaccine, M* Anaphylaxis Erythromycin Rash, GI Upset Urticarial rash, seen in [place] [facility] Latex Swelling Lisinopril Swelling Nafcillin Itching 06/29/21 negative penicillin skin testing. Passed oral amoxicillin challenge. Nifedipine Rash Norvasc [Amlodipine* Swelling Wasps Mental Status Change, Rash PAST MEDICAL HISTORY Diagnosis Date ANXIETY STATE NOS 06/07/2005 Arthritis Cancer (HCC) Carpal tunnel syndrome 06/07/2005 Cholelithiasis 06/17/2012 DEPRESSIVE DISORDER NEC 06/07/2005 Diverticulosis of colon (without mention of hemorrhage) Dizziness and giddiness 02/26/2010 GENERAL OSTEOARTHROSIS 06/07/2005 Goiter, unspecified 12/11/2010 Headache(784.0) 02/26/2010 Chronic. 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 Ramírez, severe PAST SURGICAL HISTORY Procedure Laterality Date ABDOMINAL SURGERY HX ARTHRP KNE CONDYLE&PLATU MEDIAL&LAT COMPARTMENTS February2010 Knee replacement, total, Left ARTHRP KNE CONDYLE&PLATU MEDIAL&LAT COMPARTMENTS 07/2010 Knee replacement, total, Right BACK SURGERY HX COLONOSCOPY FLX DX W/COLLJ SPEC WHEN PFRMD 06/05/2011 Colonoscopy COLONOSCOPY FLX DX W/COLLJ SPEC WHEN PFRMD N/A 12/04/2016 ESOPHAGOGASTRODUODENOSCOPY TRANSORAL DIAGNOSTIC N/A 12/04/2016 DEVORA FILTER 2019 INSJ TUNNELED CTR VAD W/SUBQ PORT AGE 5 YR/> 06/05/2022 JOINT REPLACEMENT HX L'SCOPE CHOLECYSTECTOMY 07/30/2022 Dr Gonzalez NEPHRECTOMY PARTIAL 1986 Nephrectomy, partial left (benign) PAST SURGICAL HISTORY OF 06/2018 lumbar burger with wound infection TONSILLECTOMY HX TOTAL ABDOMINAL HYSTERECT W/WO RMVL TUBE OVARY 1986 Hysterectomy, NEISHA VAGINAL HYSTERECTOMY FAMILY HISTORY Problem Relation Age of Onset Heart Mother Cancer Mother lung Heart Father other (Other) Father Heart Brother [place], aneurysm Migraines Daughter Macular Degen Maternal Aunt Social History Tobacco Use Smoking status: Never Smokeless tobacco: Never Vaping Use Vaping Use: Never used Substance Use Topics Alcohol use: No Drug use: No Reviewed current medications, allergies, past medical history, surgical history, family history andsocial history today. REVIEW OF SYSTEMS All other reviewed and negative other than HPI. VITALS: BP 126/64 Pulse 70 Wt 103 kg (227 lb) SpO2 98% BMI 42.31 kg/m Last 4 Encounter Wt Readings: Date: Wt: 03/24/2023 103.2 kg (227 lb 9.6 oz) 02/24/2023 104.6 kg (230 lb 8 oz) 02/11/2023 103 kg (227 lb) 12/30/2022 101.8 kg (224 lb 8 oz) PHYSICAL EXAMINATION: General appearance: Well appearing, alert, in no acute distress, well-hydrated, well nourished. Skin: Skin color, texture, turgor normal, no suspicious rashes or lesions Head: Normocephalic, no masses, lesions, tenderness or abnormalities Eyes: Anicteric sclera. Pupils are equally round and reactive to light. Extraocular movements are intact. Shoulder shows normal range of motion and negative empty can. Tender over trap on left. Lungs: Lungs clear to auscultation. No wheezing, rhonchi, rales Heart: RRR without murmur, gallop, or rubs. No ectopy Abdomen: Normal abdominal exam, Abdomen soft, non-tender. Bowel sounds normal. No masses, organomegaly Extremities: No deformities, edema, skin discoloration, clubbing or cyanosis. Good capillary refill. Musculoskeletal: No joint swelling, deformity, or tenderness 1. Mixed hyperlipidemia - ICD9: 272.2, ICD10: E78.2 (primary diagnosis) - Control undetermined, due for labs - Continue current medications - Counseled on healthy diet and regular exercise - LIPID PANEL BASIC 2. Essential hypertension - ICD9: 401.9, ICD10: I10 - Controlled - Continue current medications - CARVEDILOL 25 MG TABLET - CARVEDILOL 25 MG TABLET - HYDRALAZINE 50 MG TABLET 3. Body mass index (BMI) 40.0-44.9, adult (HCC) - ICD9: V85.41, ICD10: Z68.41 - watch weigh 4. Non-rheumatic tricuspid valve insufficiency - ICD9: 424.2, ICD10: I36.1 - stable. 5. CHRISTIANA on CPAP - ICD9: 327.23, V46.8, ICD10: G47.33 - not treating. 6. B-cell lymphoma, unspecified B-cell lymphoma type, unspecified body region (HCC) - ICD9: 202.80,ICD10: C85.10 - per heme onc 7. 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 Hypothyroidism, unspecified type - ICD9: 244.9, ICD10: E03.9 - follow labs. 9. Spinal stenosis, lumbar region, with neurogenic claudication - ICD9: 724.03, ICD10: M48.062 - stable. 10. History of DVT (deep vein thrombosis) - ICD9: V12.51, ICD10: Z86.718 - stable. 11. Bilateral carotid artery stenosis - ICD9: 433.10, 433.30, ICD10: I65.23 - US CAROTID ARTERIES [facility] 12. Left arm pain - ICD9: 729.5, ICD10: M79.602 - CONSULT TO PHYSICAL THERAPY - XR CERV OTHER 4V AP/LAT/OBL - GABAPENTIN 400 MG CAPSULE 13. Neck pain - ICD9: 723.1, ICD10: M54.2 - CONSULT TO PHYSICAL THERAPY - XR CERV OTHER 4V AP/LAT/OBL - GABAPENTIN 400 MG CAPSULE 14. DDD (degenerative disc disease), lumbar - ICD9: 722.52, ICD10: M51.36 - increase dose. - GABAPENTIN 400 MG CAPSULE Sylvia Lizama MD documented in this encounterAcm[facility]07-05-2023 Miscellaneous Notes* Telephone Encounter - Christina Javed LPN - 03/26/2023 5:06 PM EDT Patient notified of results, verbalizes understanding of instructions. Christina Javed LPN * Telephone Encounter - Elissa Felipe APRN.CNP - 03/26/2023 4:39 PM EDT Can you please call the patient and let her know that her shoulder x-ray was normal. I would recommend that she continue to use Tylenol as needed for pain. If no improvement I would recommend considering physical therapy. Please let me know if she has any questions. Thank you. Elissa Felipe APRN.LEONCIO documented in this encounterAcmc Healthcare System07-03-2023 Instructions* Patient Instructions* Elissa Felipe APRN.CNP - 03/24/2023 11:24 AM EDT Get xray completed. Continue supportive care at home, Tylenol 650-1000 mg Every 6-8 hours as needed for pain, ice, heat, gentle stretching. May use muscle relaxant as needed for muscle tension. Do not take with pepcid. Follow up documented in this encounterAcmc Healthcare System07-03-2023 History of Present illness Narrative* Elissa Felipe APRN.CNP - 03/24/2023 11:20 AM EDT This is a 77 year old female who presents today with: Patient presents with: Pain (Shoulder Pain): LEFT shoulder blade x 2 weeks HISTORY OF PRESENT ILLNESS: Lisa Up is a 77 year old female. Patient presents with: Pain (Shoulder Pain): LEFT shoulder blade x [address] Lizama here in the office for left shoulder pain, started hurting in the past 2 weeks.Refers she did have a fall about 3 weeks ago but is unsure if the fall caused the shoulder pain. Pain is sharp/pressure, waxes and wanes depending on position. Cannot lay on the left shoulder. Tried Tylenol which was not helpful. Refers that she took a pain pill that was leftover from surgery that helped with pain. PAST MEDICAL HISTORY: PAST MEDICAL HISTORY Diagnosis Date ANXIETY STATE NOS 06/07/2005 Arthritis Cancer (HCC) Carpal tunnel syndrome 06/07/2005 Cholelithiasis 06/17/2012 DEPRESSIVE DISORDER NEC 06/07/2005 Diverticulosis of colon (without mention of hemorrhage) Dizziness and giddiness 02/26/2010 GENERAL OSTEOARTHROSIS 06/07/2005 Goiter, unspecified 12/11/2010 Headache(784.0) 02/26/2010 Chronic. 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 Ramírez, severe PAST SURGICAL HISTORY Procedure Laterality Date ABDOMINAL SURGERY HX ARTHRP KNE CONDYLE&PLATU MEDIAL&LAT COMPARTMENTS February2010 Knee replacement, total, Left ARTHRP KNE CONDYLE&PLATU MEDIAL&LAT COMPARTMENTS 07/2010 Knee replacement, total, Right BACK SURGERY HX COLONOSCOPY FLX DX W/COLLJ SPEC WHEN PFRMD 06/05/2011 Colonoscopy COLONOSCOPY FLX DX W/COLLJ SPEC WHEN PFRMD N/A 12/04/2016 ESOPHAGOGASTRODUODENOSCOPY TRANSORAL DIAGNOSTIC N/A 12/04/2016 WENDEL FILTER 2019 INSJ TUNNELED CTR VAD W/SUBQ PORT AGE 5 YR/> 06/05/2022 JOINT REPLACEMENT HX L'SCOPE CHOLECYSTECTOMY 07/30/2022 Dr Gonzalez NEPHRECTOMY PARTIAL 1986 Nephrectomy, partial left (benign) PAST SURGICAL HISTORY OF 06/2018 lumbar burger with wound infection TONSILLECTOMY HX TOTAL ABDOMINAL HYSTERECT W/WO RMVL TUBE OVARY 1985 Hysterectomy, NEISHA VAGINAL HYSTERECTOMY ALLERGIES Adhesive; Covid-19 Vaccine, Mrna, [id number], Lnp-S (Moderna); Erythromycin; Latex; Lisinopril; Nafcillin; Nifedipine; Norvasc [Amlodipine Besylate]; and Wasps MEDICATIONS Current Outpatient Medications Medication Sig hydroCHLOROthiazide 12.5 mg capsule Take 1 capsule by mouth once daily. hydrALAZINE (APRESOLINE) 25 mg tablet Take 2 tablets by mouth twice daily. carvedilol (COREG) 25 mg tablet Take 1 tablet by mouth twice daily. levothyroxine (SYNTHROID) 75 mcg tablet Take 1 tablet by mouth daily before breakfast. potassium chloride (K-TAB) 10 mEq tablet Take 1 tablet by mouth twice daily. gabapentin (NEURONTIN) 300 mg capsule Take 1 capsule by mouth every 8 hours for 90 days. ZOLMitriptan (ZOMIG) 5 mg tablet Take 1 tablet by mouth as needed. OTC PRODUCT Super Snooze with Melatonin: Take one capsule by mouth at bedtime as needed. lidocaine-prilocaine (EMLA) 2.5-2.5 % cream Apply to affected area as needed. apixaban (ELIQUIS) 5 mg tab(s) Take 1 tablet by mouth twice daily. famotidine (PEPCID) 20 mg tablet Take 1 tablet by mouth twice daily as needed. prochlorperazine (COMPAZINE) 10 mg tablet Take 1 tablet by mouth every 6 hours as needed. acetaminophen 650 mg CR tablet Take 650 mg by mouth every 8 hours as needed. omeprazole (PRILOSEC) 20 mg capsule Take 1 capsule by mouth twice daily. 1/2 hr before meal. EPINEPHrine (EPIPEN) 0.3 mg/0.3 mL auto-injector Use as directed multivitamin/iron/folic acid (CENTRUM ULTRA WOMEN'S ORAL) Take 1 tablet by mouth once daily. No current facility-administered medications for this visit. FAMILY HISTORY Problem Relation Age of Onset Heart Mother Cancer Mother lung Heart Father other (Other) Father Heart Brother [place], aneurysm Migraines Daughter Macular Degen Maternal Aunt Social History Tobacco Use Smoking status: Never Smokeless tobacco: Never Vaping Use Vaping Use: Never used Substance Use Topics Alcohol use: No Drug use: No REVIEW OF SYSTEMS GENERAL: No weight loss, malaise or fevers/chills HEENT: Negative for frequent or significant headaches, No changes in hearing or vision. NECK: Negative for lumps, goiter, pain and significant neck swelling RESPIRATORY: Negative for cough, hemoptysis, wheezing, dyspnea or shortness of breath CARDIOVASCULAR: Negative for chest pain, leg swelling, orthopnea, or palpitations GI: No nausea, vomiting, or diarrhea/constipation. No hematochezia/melena. No heartburn or reflux symptoms. : No history of dysuria, frequency or incontinence MUSCULOSKELETAL: + Left shoulder pain SKIN: Negative for lesions, rash, and itching ENDOCRINE: Negative for cold or heat intolerance, polyuria, polydipsia and goiter NEURO: No history of headaches, syncope, paralysis, seizures or tremors MOOD: Negative for depression, anxiety, or suicidal ideation. EXAM: BP 122/64 Pulse 78 Resp 18 Wt 103.2 kg (227 lb 9.6 oz) SpO2 97% BMI 42.42 kg/m PHYSICAL EXAM: General Appearance: Well appearing, alert, in no acute distress, well-hydrated, well nourished. Skin: Skin color, texture, turgor normal, no suspicious rashes or lesions. Head: Normocephalic, no masses, lesions, tenderness or abnormalities. Eyes: Anicteric sclera. Extraocular movements are intact. Extremities: No deformities, edema, skin discoloration, clubbing or cyanosis. Good capillary refill. Musculoskeletal: Decreased ROM of left shoulder, AC joint non-tender. Unable to lift arm above the head due to pain. Medial aspect of scapula tender, mild swelling noted. No ecchymosis seen. Negativeempty cans test and Apley's test. Moderate muscle tension noted in the trapezius muscles. Peripheral Pulses: Normal, Capillary refill <2secs, strong peripheral pulses, Pulses palpable. Neurologic: Gait normal. Sensation grossly intact. ASSESSMENT/PLAN: 1. Acute pain of left shoulder - ICD9: 719.41, ICD10: M25.512 (primary diagnosis) - Get xray completed. - Continue supportive care at home, continue with Tylenol, ice as needed for pain. - XR SHOULDER GENERAL 3V OR MORE AP/TRUE AP/OTHER LEFT 2. Muscle tension pain - ICD9: 729.1, ICD10: M79.10 - May use Zanaflex every 8 hours as needed for muscle tension. Medication education and instructions provided. - Instructed to not take medication with Pepcid due to possible interaction, patient verbalizes understanding. - TIZANIDINE 4 MG TABLET Follow-up pending test results or sooner as needed. Discussed treatment plan and patient voices understanding. Patient's questions answered appropriately. Medications and potential side effects were discussed and patient voices understanding. Elissa Felipe APRN.LEONCIO This note was partially generated using [employer] voice recognition system. Note was reviewed for accuracy. There may be minor misspellings or grammar miscues with [employer] voice recognition. documented in this encounterAcmc Healthcare System06-02-2023 Miscellaneous Notes* Telephone Encounter - Talia Silver LPN - 02/21/2023 3:00 PM EDT Patient notified and verbalizes understanding. * Telephone Encounter - Sylvia Lizama MD - 02/21/2023 2:46 PM EDT Usually dental procedures are a lower bleeding risk. Stop day before and day of. Resume day after if no issues. * Telephone Encounter - Glo Low LPN - 02/21/2023 2:28 PM EDT Patient calling she is to have a bad tooth pulled on Monday 02/26 and she is taking Elquis 5 mg twice daily. Patient asking if she needs to stop taking the eliquis prior to tooth removal? Please advise documented in this encounterAcmc [facility] System06-02-2023 History of Present illness Narrative* Franklyn Juares MD - 02/21/2023 11:31 AM EDT ASSESSMENT/PLAN: 1. Combined forms of age-related cataract of right eye - ICD9: 366.19, ICD10: H25.811 (primary diagnosis) 2. Combined forms of age-related cataract of left eye - ICD9: 366.19, ICD10: H25.812 Patient is satisfied with her vision at this time 3. Ocular hypertension, bilateral - ICD9: 365.04, ICD10: H40.053 - Stable/Monitor 4. CHRISTIANA on CPAP - ICD9: 327.23, V46.8, ICD10: G47.33, Z99.89 5. Essential hypertension - ICD9: 401.9, ICD10: I10 - Continue to monitor with managing physician I have confirmed and edited as necessary the relevant ophthalmic history, review of systems, surgical history, and ophthalmological examination findings as obtained by the ophthalmic technical staff.I have seen and examined Lisa Up. I have discussed the examination findings, diagnosis, and treatment options with Lisa Up and/or her family. I have also reviewed and agree with theassessment and plan as stated above and agree with all its relevant components. I gave the patient the opportunity to ask questions about the findings, diagnosis, and treatment options. Franklyn Juares MD documented in this encounterAcmc [facility]04-12-2023 Miscellaneous Notes* Telephone Encounter - Chinyere Shea RN - 01/01/2023 11:09 AM EDT CYCLE 1/DAY 1 POST TREATMENT CALL Today's date: January 01, 2023 Treatment Regimen: Rituxan SQ C1D1 Date: 12/30/22 Called patient to follow-up on symptom management. Spoke with patient, I'm just a little tired butother than that, I'm ok SYMPTOM ASSESSMENT Neuro: None CV/Resp: None GI/: None Integument: None Activity: Activity Level (0-100%): decreased Pain: No=0 (pain 0 on a scale of 0-10). Fever: No Chills: No Any new referrals needed? No Reinforced CURRENT treatment education based on current and anticipated symptoms. Discussed port/line care and patient verbalizes understanding: Not Applicable Patient instructed to contact office or after hours Hematology/Oncology fellow for: temperature ? 100.4; questions or concerns. Patient verbalized understanding of when to seek medical attention and after hours number protocol. Chinyere Shea RN documented in this encounterAcmc [facility] System04-05-2023 Miscellaneous Notes* Telephone Encounter - Gini Ayala APRN.CNP - 12/25/2022 4:41 PM EDT See office notes. Gini Ayala APRN.CNP * Telephone Encounter - Tima Benavides RN - 12/25/2022 10:11 AM EDT Protocol recommends see provider in 4 hours. Pt scheduled with Gini Ayala MECHANICAL CAD DRAFTER today at 11 am. Care plan reviewed with patient. Patient voices understanding. Advised patient that if symptoms get worse to be evaluated in Urgent Care or ER. Reason for Disposition Blisters on other parts of the body (besides hands and feet) [1] Drug rash suspected AND [2] started taking new medicine within last 2 weeks (Exception: antihistamine, eye drops, ear drops, decongestant or other OTC cough/cold medicines) Large or small blisters on skin (i.e., fluid filled bubbles or sacs) Answer Assessment - Initial Assessment Questions 1. APPEARANCE of RASH: Pt reports water filled blisters on stomach and some on her face did, statesshe picked the ones on her face. 2. SIZE: The spots are the size of pencil eraser some are a bit smaller. 3. LOCATION: They are on her face and on her stomach. 4. COLOR: The blisters are a bright red. 5. ONSET: 2 weeks ago 6. FEVER: Denies. 7. ITCHING: Reports moderate itching 01/29. 8. CAUSE: Think Procardia may be causing the blisters, it is the only new things the Pt has started. 9. NEW MEDICATION: New medication she is taking is Procardia started on 12/09/22. 10. OTHER SYMPTOMS: Pt denies sore throat, fever, joint pain. States she has a lot of pain all the time, so isn't sure about that. 11. : Postmenopausal. Protocols used: Blister - Foot and [id number], Rash or Redness - [id number], Rash - Widespread On [id number]-FG documented in this encounterAcmc Healthcare System04-05-2023 Instructions* Patient Instructions* Gini Ayala APRN.CNP - 12/25/2022 11:42 AM EDT Stop the nifedipine. Start the triamcinolone ointment as needed to the rash. Start the bactroban to the face (mupirocin) Recheck in 1-2 weeks. Let us know if not improving or worsening. documented in this encounterAcmc [facility] System04-05-2023 Miscellaneous Notes* Telephone Encounter - Talia Silver LPN - 12/25/2022 11:10 AM EDT Patient notified and states that she had trouble getting the equipment all set up. She will think about going to the sleep lab and let us know. * Telephone Encounter - Sylvia Lizama MD - 12/25/2022 11:05 AM EDT Sleep study was inconclusive. To evaluate further we would have to do an in lab study. Is she willing to do. documented in this encounterAcmc [facility] System04-05-2023 History of Present illness Narrative* Gini Ayala APRN.CRISIS COUNSELOR - 12/25/2022 10:55 AM EDT This is a 77 year old female who presents today with: Patient presents with: Rash: Rash on face and stomach; fluid filled blisters- burn and itch HISTORY OF PRESENT ILLNESS: Lisa Up is a 77 year old female. Patient presents with: Rash: Rash on face and stomach; fluid filled blisters- burn and itch Pt presents today with complaints of skin lesions. Refers that she had one on her face for over 2 weeks; then developed another one on the other side of her face. The initial two areas on her face, she picked, as she thought it was ingrown hairs. She has progressively develops more of the lesions on her face, scalp arms, and trunk. Refers lesions itch and burn. She denies any other new exposures. She reports that she has used a multiple creams and home remedies to try to treat. Concerned that it may be a medication reaction -- her newest medication was procardia. Refers that she moved into a new apartment several months ago - initially was concerned about possible bed bugs -- and hasn't found any evidence of any infestations. No fever/chills. No systemic symptoms. No recent sickness. No recent travel. PAST MEDICAL HISTORY: PAST MEDICAL HISTORY Diagnosis Date ANXIETY STATE NOS 06/07/2005 Arthritis Cancer (HCC) Carpal tunnel syndrome 06/07/2005 Cholelithiasis 06/17/2012 DEPRESSIVE DISORDER NEC 06/07/2005 Diverticulosis of colon (without mention of hemorrhage) Dizziness and giddiness 02/26/2010 GENERAL OSTEOARTHROSIS 06/07/2005 Goiter, unspecified 12/11/2010 Headache(784.0) 02/26/2010 Chronic. 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 Ramírez, severe PAST SURGICAL HISTORY Procedure Laterality Date ABDOMINAL SURGERY HX ARTHRP KNE CONDYLE&PLATU MEDIAL&LAT COMPARTMENTS February2010 Knee replacement, total, Left ARTHRP KNE CONDYLE&PLATU MEDIAL&LAT COMPARTMENTS 07/2010 Knee replacement, total, Right BACK SURGERY HX COLONOSCOPY FLX DX W/COLLJ SPEC WHEN PFRMD 06/05/2011 Colonoscopy COLONOSCOPY FLX DX W/COLLJ SPEC WHEN PFRMD N/A 12/04/2016 ESOPHAGOGASTRODUODENOSCOPY TRANSORAL DIAGNOSTIC N/A 12/04/2016 DEVORA FILTER 2019 INSJ TUNNELED CTR VAD W/SUBQ PORT AGE 5 YR/> 06/05/2022 JOINT REPLACEMENT HX L'SCOPE CHOLECYSTECTOMY 07/30/2022 Dr Gonzalez NEPHRECTOMY PARTIAL 1986 Nephrectomy, partial left (benign) PAST SURGICAL HISTORY OF 06/2018 lumbar burger with wound infection TONSILLECTOMY HX TOTAL ABDOMINAL HYSTERECT W/WO RMVL TUBE OVARY 1986 Hysterectomy, NEISHA VAGINAL HYSTERECTOMY ALLERGIES Adhesive; Covid-19 Vaccine, Mrna, [id number], Lnp-S (Moderna); Erythromycin; Latex; Lisinopril; Nafcillin; Norvasc [Amlodipine Besylate]; and Wasps MEDICATIONS Current Outpatient Medications Medication Sig NIFEdipine ER (PROCARDIA XL) 30 mg 24 hr tablet Take 1 tablet by mouth once daily. hydrALAZINE (APRESOLINE) 25 mg tablet Take 2 tablets by mouth twice daily. hydroCHLOROthiazide (HYDRODIURIL, ESIDRIX) 50 mg tablet Take 25 mg by mouth twice daily. carvedilol (COREG) 25 mg tablet Take 1 tablet by mouth twice daily. levothyroxine (SYNTHROID) 75 mcg tablet Take 1 tablet by mouth daily before breakfast. potassium chloride (K-TAB) 10 mEq tablet Take 1 tablet by mouth twice daily. gabapentin (NEURONTIN) 300 mg capsule Take 1 capsule by mouth every 8 hours for 90 days. ZOLMitriptan (ZOMIG) 5 mg tablet Take 1 tablet by mouth as needed. OTC PRODUCT Super Snooze with Melatonin: Take one capsule by mouth at bedtime as needed. lidocaine-prilocaine (EMLA) 2.5-2.5 % cream Apply to affected area as needed. apixaban (ELIQUIS) 5 mg tab(s) Take 1 tablet by mouth twice daily. famotidine (PEPCID) 20 mg tablet Take 1 tablet by mouth twice daily as needed. prochlorperazine (COMPAZINE) 10 mg tablet Take 1 tablet by mouth every 6 hours as needed. acetaminophen 650 mg CR tablet Take 650 mg by mouth every 8 hours as needed. omeprazole (PRILOSEC) 20 mg capsule Take 1 capsule by mouth twice daily. 1/2 hr before meal. EPINEPHrine (EPIPEN) 0.3 mg/0.3 mL auto-injector Use as directed multivitamin/iron/folic acid (CENTRUM ULTRA WOMEN'S ORAL) Take 1 tablet by mouth once daily. No current facility-administered medications for this visit. FAMILY HISTORY Problem Relation Age of Onset Heart Mother Cancer Mother lung Heart Father other (Other) Father Heart Brother [place], aneurysm Migraines Daughter Macular Degen Maternal Aunt Social History Tobacco Use Smoking status: Never Smokeless tobacco: Never Vaping Use Vaping Use: Never used Substance Use Topics Alcohol use: No Drug use: No EXAM: BP 132/80 Pulse 78 Resp 18 SpO2 98% PHYSICAL EXAM: General Appearance: Well appearing, alert, in no acute distress, well-hydrated, well nourished.. Skin: scabbed area on bilateral jaw line with some redness. Pustular area on posterior scalp. Papular, pustular, and scabbed areas present on the arms, abdomen, and back. Head: Normocephalic, no masses, lesions, tenderness or abnormalities. Eyes: Anicteric sclera. Extraocular movements are intact. Lungs: Lungs clear to auscultation. No wheezing, rhonchi, rales.. Heart: RRR without murmur, gallop, or rubs. No ectopy. Extremities: No deformities, edema, skin discoloration, clubbing or cyanosis. Good capillary refill. . Neurologic: Gait normal. ASSESSMENT/PLAN: 1. Acute generalized exanthematous pustulosis due to drug - ICD9: 693.0, E947.9, ICD10: L27.0, T50.905A Suspect exanthematous pustulosis.. Stop procardia. Start bactroban to the facial lesions. Apply the triamcinolone to the other affected areas. Notify provider if no improvement/worsening. Recheck BP and skin in 1-2 weeks. - MUPIROCIN 2 % TOPICAL OINTMENT - TRIAMCINOLONE ACETONIDE 0.1 % TOPICAL OINTMENT Discussed treatment plan and patient voices understanding. Patient's questions answered appropriately. Medications and potential side effects were discussed and patient voices understanding. Return to the office as scheduled or as needed for worsening/no improvement. Gini Ayala APRN.CRISIS COUNSELOR documented in this encounterAcmc Healthcare System03-30-2023 Miscellaneous Notes* Telephone Encounter - Heaven Sykes - 12/19/2022 10:09 AM EDT Checked with Jean Marie on pts orders, scheduled start for 12/30 due to full treatment chairs next week. Spoke to pt and scheduled. Recall letter placed for CT and OV as well as note placed on treatment * Telephone Encounter - Lou Rincon - 12/17/2022 2:53 PM EDT Return in about 6 months (around 06/19/2023). Check out comments: Start SQ rituxan next and every 8 weeks.RTO in [address] scans without contrast and labs just prior to visit *Waiting to see if orders for rituxan change prior to scheduling. documented in this encounterAcmc Healthcare System03-28-2023 History of Present illness Narrative* Anca Almonte MD - 12/17/2022 5:28 PM EDT Images from the original note were not included. 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 She achieved CR with Bendamustine Rituxan. She is here for further management Diagnostic Studies: Reviewed CURRENT MEDICATIONS: NIFEdipine ER (PROCARDIA XL) 30 mg 24 hr tablet Take 1 tablet by mouth once daily. hydrALAZINE (APRESOLINE) 25 mg tablet Take 2 tablets by mouth twice daily. hydroCHLOROthiazide (HYDRODIURIL, ESIDRIX) 50 mg tablet Take 25 mg by mouth twice daily. carvedilol (COREG) 25 mg tablet Take 1 tablet by mouth twice daily. levothyroxine (SYNTHROID) 75 mcg tablet Take 1 tablet by mouth daily before breakfast. potassium chloride (K-TAB) 10 mEq tablet Take 1 tablet by mouth twice daily. gabapentin (NEURONTIN) 300 mg capsule Take 1 capsule by mouth every 8 hours for 90 days. ZOLMitriptan (ZOMIG) 5 mg tablet Take 1 tablet by mouth as needed. OTC PRODUCT Super Snooze with Melatonin: Take one capsule by mouth at bedtime as needed. lidocaine-prilocaine (EMLA) 2.5-2.5 % cream Apply to affected area as needed. apixaban (ELIQUIS) 5 mg tab(s) Take 1 tablet by mouth twice daily. prochlorperazine (COMPAZINE) 10 mg tablet Take 1 tablet by mouth every 6 hours as needed. acetaminophen 650 mg CR tablet Take 650 mg by mouth every 8 hours as needed. omeprazole (PRILOSEC) 20 mg capsule Take 1 capsule by mouth twice daily. 1/2 hr before meal. EPINEPHrine (EPIPEN) 0.3 mg/0.3 mL auto-injector Use as directed multivitamin/iron/folic acid (CENTRUM ULTRA WOMEN'S ORAL) Take 1 tablet by mouth once daily. enteric contrast (will be provided with radiology test) Take 1 Each by mouth one time only for [address] ABD/PEL WO Routine order Administer, As Directed One Time Only, via Oral, Rectal, both Oral and Rectal, Enteric Tube, Stoma or Indwelling Catheter, Enteric Contrast as designated per enteric contrast guidelines famotidine (PEPCID) 20 mg tablet Take 1 tablet by mouth twice daily as needed. (Patient not taking:Reported on 12/17/2022) ALLERGIES/INTOLERANCES: ALLERGIES Allergen Reactions Adhesive Rash Blisters and dermatitis from op site dressing and tape Covid-19 Vaccine, M* Anaphylaxis Erythromycin Rash, GI Upset Urticarial rash, seen in [place] ER Latex Swelling Lisinopril Swelling Nafcillin Itching 06/29/21 negative penicillin skin testing. Passed oral amoxicillin challenge. Norvasc [Amlodipine* Swelling Wasps Mental Status Change, Rash ROS: No changes in extensive review of systems PHYSICAL EXAM: BP 128/66 Pulse 73 Temp 36.5 C (97.7 F) Ht 156 cm (5' 1.42) Wt 104.6 kg (230 lb 8 oz) SpO2 98% BMI42.96 kg/m2 Body mass index is 42.96 kg/m . ECO No abnormalities on physical exam including no lymphadenopathy or hepatosplenomegaly DATA REVIEW: I personally reviewed the patient's data and medical records. PERTINENT LABS: Reviewed PERTINENT IMAGING: Reviewed ASSESSMENT AND Plan Follicular lymphoma grade 1 through 2 with a CR status. We stopped Bendamustine Rituxan after completion of 4 cycles for different reasons including when known fact of increased mortality in patientswho are 70 years and older. We discussed with the patient the concept of maintenance Rituxan specially in the subcu for to makeit much easier and convenient. Studies have shown improvement in progression free survival with no difference in overall survival. Balancing risk versus benefits it makes good sense and she is agreeable so we will get her started. We will plan to do it once every 8 weeks for total of 2 years We will see patient in [address] scans. Following that scans can be done once a year and then as clinically indicated The patient was able to ask questions and these were answered in detail. Anca Almonte MD cc: Anca Lizama MD documented in this encounterAcmc Healthcare System03-28-2023 History of Present illness Narrative* Taramichelle Tsai - 12/17/2022 11:56 AM EDT Sleep Study Check-In Documentation Date: December 17, 2022 Name: Lisa Up Comments: HST was returned in working order with all sleep questionnaires Lanesha Tsai * Destiny Zuniga MD - 12/12/2022 3:34 PM EDT December 12, 2022 Standing PSG Orders signed in the last 90 days None Future PSG Orders signed in the last 90 days None All Prior Sleep Studies (past 365 days) Some values may be hidden. Unless noted otherwise, only the newest values recorded on each date aredisplayed. Sleep Studies HOME SLEEP APNEA TEST (HSAT) Date: 12/12/22 BMI Readings from Last 2 Encounters: 12/09/22 : 41.70 kg/m 11/27/22 : 40.79 kg/m PAST MEDICAL HISTORY Diagnosis Date ANXIETY STATE NOS 06/07/2005 Arthritis Cancer (HCC) Carpal tunnel syndrome 06/07/2005 Cholelithiasis 06/17/2012 DEPRESSIVE DISORDER NEC 06/07/2005 Diverticulosis of colon (without mention of hemorrhage) Dizziness and giddiness 02/26/2010 GENERAL OSTEOARTHROSIS 06/07/2005 Goiter, unspecified 12/11/2010 Headache(784.0) 02/26/2010 Chronic. 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 Ramírez, yonny The medical record was reviewed to determine if the proposed sleep study conforms to the [facility] Practice Parameters for the Indications for Polysomnography and Related Procedures, or if the sleep studyis indicated for other reasons. Indications for study: CHRISTIANA suspected with comorbid medical or sleep disorders: Morbid obesity (BMI>40 kg/m2) CHRISTIANA no longer on PAP Sleep study to be performed: Home Sleep Apnea Test (HSAT) Special instructions: None-follow laboratory protocol CHRISTIANA no longer on PAP [facility] Staff Note: I have read the above protocol, edited as needed, and agree to the plan. Destiny Zuniga MD 4:44 PM, 12/12/2022 * Estefany HUBER - 12/12/2022 3:13 PM EDT Awaiting protocol and signature Nomad: [id number] Date: 12/12/22 [employer] Mailout Tracking Number: [id number] [employer] Return Tracking Number: [id number] * Estefany HUBER - 12/12/2022 3:13 PM EDT December 12, 2022 An order has been received for Home Sleep Apnea Test (HSAT) from elizabet M[facility] Staff. Visit prep complete. Comments :No The sleep study is scheduled for 12/12/22 . Insurance: Payor: MEDICARE / Plan: MEDICARE A AND B / Product Type: Medicare / Payer/Plan Subscr Sex Relation Sub. Ins. ID Effective Group Num 1. MEDICARE - ME* LISA UP 1945 Female Self [id number] 10/[birth year]/08 [address] [facility]* LISA UP F 1945 Female Self [id number] [birth year]17 [id number] Estefany HUBER documented in this encounterAcmc Healthcare System03-20-2023 Instructions* Patient Instructions* Sylvia Lizama MD - 12/09/2022 3:55 PM EDT My chart bp in two weeks. documented in this encounterAcmc Healthcare System03-20-2023 History of Present illness Narrative* Sylvia Lizama MD - 12/09/2022 3:36 PM EDT Patient presents with: Blood Pressure: Coreg increase, decreased HCTZ. Validated home cuff. HPI: Patient presents today for office visit for follow up. Had been confused with her bp meds so attempted to have her take what she was supposed to be takingand then bring her in for recheck. We did validate her bp cuff. They have varied but have still been high. Still slightly dizzy. She had right shoulder pain that radiated into her right breast when she was pushing her cart at the stored. No left sided chest pain with exertion. Declines xray. No trauma. She had swelling from calcium channel blockers and arbs(angioedema) She can't taker higher doses of hydralazine. See previous ov: She is confused about her BP medications and what she should be taking. Currently taking Carvedilol, Maxide (She found some Maxzide in her drawer and started taking that for the last two weeks), HCTZand Hydralazine. Currently experiencing lightheadedness with some head pressure when she takes the h ydralazine all at once so has been splitting. No chest pain or shortness of breath. She thought her bp was really high. Has a new cuff that has not been validated. She has had some hair loss. Some tremor. Some weight gain. Is cold frequently. Seeing hematology. Back is stable. Has a machine for cpap that is at least 10 years old. Has not used it in well over a year. Snores and feels tired. See Josse's previous note: Tried Taking: HCTZ 50 mg tab in am, 25 mg Tab in PM (50 mg tablets are from 2016) Carvedilol 12.5 mg tab twice daily Not use of any alleviating and aggravating factors. Admits to shaky feeling. (+) Crampy epigastric pain that occurs after eating and then lasts throughout the day. (+) ringing in ears when she is not feeling well (+) blurred vision but not loss of vision, just hard to focus. Carvedilol was increased to 12.5mg to 25 mg Tab BID HCTZ was decreased to 50 mg Tab daily MEDICATIONS: Current Outpatient Medications Medication Sig hydrALAZINE (APRESOLINE) 25 mg tablet Take 2 tablets by mouth twice daily. hydroCHLOROthiazide (HYDRODIURIL, ESIDRIX) 50 mg tablet Take 25 mg by mouth twice daily. carvedilol (COREG) 25 mg tablet Take 1 tablet by mouth twice daily. levothyroxine (SYNTHROID) 75 mcg tablet Take 1 tablet by mouth daily before breakfast. potassium chloride (K-TAB) 10 mEq tablet Take 1 tablet by mouth twice daily. gabapentin (NEURONTIN) 300 mg capsule Take 1 capsule by mouth every 8 hours for 90 days. ZOLMitriptan (ZOMIG) 5 mg tablet Take 1 tablet by mouth as needed. OTC PRODUCT Super Snooze with Melatonin: Take one capsule by mouth at bedtime as needed. lidocaine-prilocaine (EMLA) 2.5-2.5 % cream Apply to affected area as needed. apixaban (ELIQUIS) 5 mg tab(s) Take 1 tablet by mouth twice daily. famotidine (PEPCID) 20 mg tablet Take 1 tablet by mouth twice daily as needed. prochlorperazine (COMPAZINE) 10 mg tablet Take 1 tablet by mouth every 6 hours as needed. acetaminophen 650 mg CR tablet Take 650 mg by mouth every 8 hours as needed. omeprazole (PRILOSEC) 20 mg capsule Take 1 capsule by mouth twice daily. 1/2 hr before meal. EPINEPHrine (EPIPEN) 0.3 mg/0.3 mL auto-injector Use as directed multivitamin/iron/folic acid (CENTRUM ULTRA WOMEN'S ORAL) Take 1 tablet by mouth once daily. No current facility-administered medications for this visit. ALLERGIES: ALLERGIES Allergen Reactions Adhesive Rash Blisters and dermatitis from op site dressing and tape Covid-19 Vaccine, M* Anaphylaxis Erythromycin Rash, GI Upset Urticarial rash, seen in [place] ER Latex Swelling Lisinopril Swelling Nafcillin Itching 06/29/21 negative penicillin skin testing. Passed oral amoxicillin challenge. Norvasc [Amlodipine* Swelling Wasps Mental Status Change, Rash PAST MEDICAL HISTORY Diagnosis Date ANXIETY STATE NOS 06/07/2005 Arthritis Cancer (HCC) Carpal tunnel syndrome 06/07/2005 Cholelithiasis 06/17/2012 DEPRESSIVE DISORDER NEC 06/07/2005 Diverticulosis of colon (without mention of hemorrhage) Dizziness and giddiness 02/26/2010 GENERAL OSTEOARTHROSIS 06/07/2005 Goiter, unspecified 12/11/2010 Headache(784.0) 02/26/2010 Chronic. 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 Ramírez, severe PAST SURGICAL HISTORY Procedure Laterality Date ABDOMINAL SURGERY HX ARTHRP KNE CONDYLE&PLATU MEDIAL&LAT COMPARTMENTS February2010 Knee replacement, total, Left ARTHRP KNE CONDYLE&PLATU MEDIAL&LAT COMPARTMENTS 07/2010 Knee replacement, total, Right BACK SURGERY HX COLONOSCOPY FLX DX W/COLLJ SPEC WHEN PFRMD 06/05/2011 Colonoscopy COLONOSCOPY FLX DX W/COLLJ SPEC WHEN PFRMD N/A 12/04/2016 ESOPHAGOGASTRODUODENOSCOPY TRANSORAL DIAGNOSTIC N/A 12/04/2016 DEVORA FILTER 2019 INSJ TUNNELED CTR VAD W/SUBQ PORT AGE 5 YR/> 06/05/2022 JOINT REPLACEMENT HX L'SCOPE CHOLECYSTECTOMY 07/30/2022 Dr Gonzalez NEPHRECTOMY PARTIAL 1986 Nephrectomy, partial left (benign) PAST SURGICAL HISTORY OF 06/2018 lumbar burger with wound infection TONSILLECTOMY HX TOTAL ABDOMINAL HYSTERECT W/WO RMVL TUBE OVARY 1986 Hysterectomy, NEISHA VAGINAL HYSTERECTOMY FAMILY HISTORY Problem Relation Age of Onset Heart Mother Cancer Mother lung Heart Father other (Other) Father Heart Brother [place], aneurysm Migraines Daughter Macular Degen Maternal Aunt Social History Tobacco Use Smoking status: Never Smokeless tobacco: Never Vaping Use Vaping Use: Never used Substance Use Topics Alcohol use: No Drug use: No Reviewed current medications, allergies, past medical history, surgical history, family history andsocial history today. REVIEW OF SYSTEMS All other reviewed and negative other than HPI. VITALS: BP 182/82 Pulse 80 Wt 103.4 kg (228 lb) SpO2 99% BMI 41.70 kg/m Last 4 Encounter Wt Readings: Date: Wt: 12/09/2022 103.4 kg (228 lb) 11/27/2022 101.2 kg (223 lb) 11/25/2022 100.7 kg (222 lb) 11/25/2022 100.7 kg (222 lb) PHYSICAL EXAMINATION: General appearance: Well appearing, alert, in no acute distress, well-hydrated, well nourished. Skin: Skin color, texture, turgor normal, no suspicious rashes or lesions Head: Normocephalic, no masses, lesions, tenderness or abnormalities Lungs: Lungs clear to auscultation. No wheezing, rhonchi, rales Heart: RRR without murmur, gallop, or rubs. No ectopy Abdomen: Normal abdominal exam, Abdomen soft, non-tender. Bowel sounds normal. No masses, organomegaly Extremities: No deformities, edema, skin discoloration, clubbing or cyanosis. Good capillary refill. Musculoskeletal: No joint swelling, deformity, or tenderness ASSESSMENT/PLAN: 1. Essential hypertension - ICD9: 401.9, ICD10: I10 - try different calcium channel lenore. Call pressures in two weeks. Close follow up. - NIFEDIPINE ER 30 MG TABLET,EXTENDED RELEASE 24 HR Sylvia Lizama documented in this encounterAcmc Healthcare System03-20-2023 Nurse Note* Talia Silver LPN - 12/09/2022 3:25 PM EDT 12/09/2022: Home BP Cuff Validated. Home BP: 189/98 Office BP: 182/82 documented in this encounterAcmc Healthcare System03-20-2023 History of Present illness Narrative* Dannielle Doll, RT(R) - 12/09/2022 11:00 AM EDT Radiology Service Progress Note PATIENT NAME: Lisa Up DATE OF SERVICE: December 09, 2022 TIME: 3:53 PM PATIENT IDENTITY VERIFICATION COMPLETED USING TWO (2) IDENTIFIERS: Name and Date of confirmedby patient verbally. FALL SCREENING: Has the patient had 2 falls in the last year or 1 fall with injury or currently using an Ambulatory Assistive Device (Walker, Cane, Wheelchair, Crutches, etc.)? No PATIENT GENDER DATA: Female. status: : No status: NO. PATIENT RELEVANT IMPLANT DATA REVIEWED: Yes RADIOLOGY DEPARTMENT: CT; Exam(s) Completed: Chest Abdomen Pelvis PERIPHERAL IV DATA: Not applicable SIGNED BY: RT Blanca(R) December 09, 2022 3:53 PM documented in this encounterAcmc Healthcare System03-08-2023 History of Present illness Narrative* Sylvia Lizama MD - 11/27/2022 8:48 AM EST Patient presents with: Hypertension: Follow up HPI: Patient presents today for office visit for follow up for blood pressure. Saw Josse Allan on 11/07/22 for concerns of elevated blood pressure. She is confused about her BP medications and what she should be taking. Currently taking Carvedilol, Maxide (She found some Maxzide in her drawer and started taking that for the last two weeks), HCTZand Hydralazine. Currently experiencing lightheadedness with some head pressure when she takes the h ydralazine all at once so has been splitting. No chest pain or shortness of breath. She thought her bp was really high. Has a new cuff that has not been validated. She has had some hair loss. Some tremor. Some weight gain. Is cold frequently. Seeing hematology. Back is stable. Has a machine for cpap that is at least 10 years old. Has not used it in well over a year. Snores and feels tired. See Josse's previous note: Tried Taking: HCTZ 50 mg tab in am, 25 mg Tab in PM (50 mg tablets are from 2016) Carvedilol 12.5 mg tab twice daily Not use of any alleviating and aggravating factors. Admits to shaky feeling. (+) Crampy epigastric pain that occurs after eating and then lasts throughout the day. (+) ringing in ears when she is not feeling well (+) blurred vision but not loss of vision, just hard to focus. Carvedilol was increased to 12.5mg to 25 mg Tab BID HCTZ was decreased to 50 mg Tab daily MEDICATIONS: Current Outpatient Medications Medication Sig hydrALAZINE (APRESOLINE) 25 mg tablet Take 50 mg by mouth once daily. hydroCHLOROthiazide (HYDRODIURIL, ESIDRIX) 50 mg tablet Take 50 mg by mouth twice daily. triamterene-hydroCHLOROthiazide (MAXZIDE-25) 37.5-25 mg per tablet Take 1 tablet by mouth once daily. carvedilol (COREG) 25 mg tablet Take 1 tablet by mouth twice daily. levothyroxine (SYNTHROID) 75 mcg tablet Take 1 tablet by mouth daily before breakfast. potassium chloride (K-TAB) 10 mEq tablet Take 1 tablet by mouth twice daily. gabapentin (NEURONTIN) 300 mg capsule Take 1 capsule by mouth every 8 hours for 90 days. ZOLMitriptan (ZOMIG) 5 mg tablet Take 1 tablet by mouth as needed. OTC PRODUCT Super Snooze with Melatonin: Take one capsule by mouth at bedtime as needed. lidocaine-prilocaine (EMLA) 2.5-2.5 % cream Apply to affected area as needed. apixaban (ELIQUIS) 5 mg tab(s) Take 1 tablet by mouth twice daily. famotidine (PEPCID) 20 mg tablet Take 1 tablet by mouth twice daily as needed. prochlorperazine (COMPAZINE) 10 mg tablet Take 1 tablet by mouth every 6 hours as needed. acetaminophen 650 mg CR tablet Take 650 mg by mouth every 8 hours as needed. omeprazole (PRILOSEC) 20 mg capsule Take 1 capsule by mouth twice daily. 1/2 hr before meal. EPINEPHrine (EPIPEN) 0.3 mg/0.3 mL auto-injector Use as directed multivitamin/iron/folic acid (CENTRUM ULTRA WOMEN'S ORAL) Take 1 tablet by mouth once daily. No current facility-administered medications for this visit. ALLERGIES: ALLERGIES Allergen Reactions Adhesive Rash Blisters and dermatitis from op site dressing and tape Covid-19 Vaccine, M* Anaphylaxis Erythromycin Rash, GI Upset Urticarial rash, seen in [place] ER Latex Swelling Lisinopril Swelling Nafcillin Itching 06/29/21 negative penicillin skin testing. Passed oral amoxicillin challenge. Norvasc [Amlodipine* Swelling Wasps Mental Status Change, Rash PAST MEDICAL HISTORY Diagnosis Date ANXIETY STATE NOS 06/07/2005 Arthritis Cancer (HCC) Carpal tunnel syndrome 06/07/2005 Cholelithiasis 06/17/2012 DEPRESSIVE DISORDER NEC 06/07/2005 Diverticulosis of colon (without mention of hemorrhage) Dizziness and giddiness 02/26/2010 GENERAL OSTEOARTHROSIS 06/07/2005 Goiter, unspecified 12/11/2010 Headache(784.0) 02/26/2010 Chronic. 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 Ramírez, severe PAST SURGICAL HISTORY Procedure Laterality Date ABDOMINAL SURGERY HX ARTHRP KNE CONDYLE&PLATU MEDIAL&LAT COMPARTMENTS February2010 Knee replacement, total, Left ARTHRP KNE CONDYLE&PLATU MEDIAL&LAT COMPARTMENTS 07/2010 Knee replacement, total, Right BACK SURGERY HX COLONOSCOPY FLX DX W/COLLJ SPEC WHEN PFRMD 06/05/2011 Colonoscopy COLONOSCOPY FLX DX W/COLLJ SPEC WHEN PFRMD N/A 12/04/2016 ESOPHAGOGASTRODUODENOSCOPY TRANSORAL DIAGNOSTIC N/A 12/04/2016 DEVORA FILTER 2019 INSJ TUNNELED CTR VAD W/SUBQ PORT AGE 5 YR/> 06/05/2022 JOINT REPLACEMENT HX L'SCOPE CHOLECYSTECTOMY 07/30/2022 Dr Gonzalez NEPHRECTOMY PARTIAL 1986 Nephrectomy, partial left (benign) PAST SURGICAL HISTORY OF 06/2018 lumbar bugrer with wound infection TONSILLECTOMY HX TOTAL ABDOMINAL HYSTERECT W/WO RMVL TUBE OVARY 1985 Hysterectomy, NEISHA VAGINAL HYSTERECTOMY FAMILY HISTORY Problem Relation Age of Onset Heart Mother Cancer Mother lung Heart Father other (Other) Father Heart Brother [place], aneurysm Migraines Daughter Macular Degen Maternal Aunt Social History Tobacco Use Smoking status: Never Smokeless tobacco: Never Vaping Use Vaping Use: Never used Substance Use Topics Alcohol use: No Drug use: No Reviewed current medications, allergies, past medical history, surgical history, family history andsocial history today. REVIEW OF SYSTEMS Tremor slightly worse Still with headaches. Some chronic numbness due to her back. Has neuropathy Notes her urine smells frequently. All other reviewed and negative other than HPI. HEALTH MAINTENANCE: Reviewed health maintenance issues today VITALS: BP 138/70 Pulse 72 Ht 157.5 cm (5' 2) Wt 101.2 kg (223 lb) SpO2 99% BMI 40.79 kg/m Last 4 Encounter Wt Readings: Date: Wt: 11/25/2022 100.7 kg (222 lb) 11/25/2022 100.7 kg (222 lb) 11/07/2022 101.2 kg (223 lb) 10/28/2022 101.2 kg (223 lb) PHYSICAL EXAMINATION: General appearance: Well appearing, alert, in no acute distress, well-hydrated, well nourished. Using walker. No falls. Skin: Skin color, texture, turgor normal, no suspicious rashes or lesions Head: Normocephalic, no masses, lesions, tenderness or abnormalities Eyes: Anicteric sclera. Pupils are equally round and reactive to light. Extraocular movements are intact. Lungs: Lungs clear to auscultation. No wheezing, rhonchi, rales Heart: RRR without murmur, gallop, or rubs. No ectopy Abdomen: Normal abdominal exam, Abdomen soft, non-tender. Bowel sounds normal. No masses, organomegaly Extremities: No deformities, edema, skin discoloration, clubbing or cyanosis. Good capillary refill. Musculoskeletal: No joint swelling, deformity, or tenderness Peripheral pulses: Normal Neuro: Negative. ASSESSMENT/PLAN: 1. Essential tremor - ICD9: 333.1, ICD10: G25.0 (primary diagnosis) - stable. Advised to call if worsens. 2. Chronic migraine without aura, with intractable migraine, so stated, with status migrainosus - ICD9: 346.73, ICD10: G43.711 - stable. 3. Intractable chronic migraine without aura and without status migrainosus - ICD9: 346.71, ICD10: G43.719 - stable. 4. Essential hypertension - ICD9: 401.9, ICD10: I10 - asked her not to change meds unless we ask her to. Stop the maxzide. Rto in one to two weeks and bring in cuff to validate. - HYDRALAZINE 25 MG TABLET 5. Mixed hyperlipidemia - ICD9: 272.2, ICD10: E78.2 - good control - Continue current medication. 6. Gastroesophageal reflux disease, unspecified whether esophagitis present - ICD9: 530.81, ICD10: K21.9 - stable. 7. Chronic kidney disease, unspecified CKD stage - ICD9: 585.9, ICD10: N18.9 Doingwell. 8. Hypothyroidism, unspecified type - ICD9: 244.9, ICD10: E03.9 - TSH BLD - T4/FTI/T4U 9. B-cell lymphoma, unspecified B-cell lymphoma type, unspecified body region (HCC) - ICD9: 202.80,ICD10: C85.10 - per oncology 10. 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 Lymphadenopathy, generalized - ICD9: 785.6, ICD10: R59.1 -as above. 12. CHRISTIANA (obstructive sleep apnea) - ICD9: 327.23, ICD10: G47.33 - reset up sleep study - HOME SLEEP APNEA TEST (HSAT) 13. Abnormal urine odor - ICD9: 791.9, ICD10: R82.90 - URINALYSIS, WITH MICROSCOPIC - URINE CULTURE Sylvia Lizama MD documented in this encounterAcmc Healthcare System03-06-2023 History of Present illness Narrative* Anca Almonte MD - 11/25/2022 4:52 PM EST Images from the original note were not included. SERVICE DATE: November 25, 2022 CHIEF COMPLAINT: Lisa Up is a 77 year old female returning today for follow up of her follicular lymphoma INTERVAL HISTORY: Very pleasant 77-year-old white lady with grade 1-2 follicular lymphoma. She completed 4 cycles of Bendamustine/Rituxan. She has been having some side effects and felt that her quality of life has not been good since the treatment. She had CR on at least excellent [place] after 2 cycles. She believes was told after completion of 3 cycles that she will not get any further chemotherapy. She had 1 4 weeks ago and apparently in the treatment area there was an impression to continue for6-8 cycles Patient also was given allopurinol to prevent tumor lysis which has been maintained till currently even after a documented CR or excellent OH with completion of 2 cycles. She was diagnosed as peripheral neuropathy in the lower extremities and was given gabapentin with minimal relief according to the patient Diagnostic Studies: Reviewed CURRENT MEDICATIONS: hydroCHLOROthiazide (HYDRODIURIL, ESIDRIX) 50 mg tablet Take 50 mg by mouth twice daily. triamterene-hydroCHLOROthiazide (MAXZIDE-25) 37.5-25 mg per tablet Take 1 tablet by mouth once daily. carvedilol (COREG) 25 mg tablet Take 1 tablet by mouth twice daily. levothyroxine (SYNTHROID) 75 mcg tablet Take 1 tablet by mouth daily before breakfast. potassium chloride (K-TAB) 10 mEq tablet Take 1 tablet by mouth twice daily. gabapentin (NEURONTIN) 300 mg capsule Take 1 capsule by mouth every 8 hours for 90 days. ZOLMitriptan (ZOMIG) 5 mg tablet Take 1 tablet by mouth as needed. OTC PRODUCT Super Snooze with Melatonin: Take one capsule by mouth at bedtime as needed. lidocaine-prilocaine (EMLA) 2.5-2.5 % cream Apply to affected area as needed. apixaban (ELIQUIS) 5 mg tab(s) Take 1 tablet by mouth twice daily. famotidine (PEPCID) 20 mg tablet Take 1 tablet by mouth twice daily as needed. prochlorperazine (COMPAZINE) 10 mg tablet Take 1 tablet by mouth every 6 hours as needed. acetaminophen 650 mg CR tablet Take 650 mg by mouth every 8 hours as needed. omeprazole (PRILOSEC) 20 mg capsule Take 1 capsule by mouth twice daily. 1/2 hr before meal. EPINEPHrine (EPIPEN) 0.3 mg/0.3 mL auto-injector Use as directed multivitamin/iron/folic acid (CENTRUM ULTRA WOMEN'S ORAL) Take 1 tablet by mouth once daily. enteric contrast (will be provided with radiology test) Take 1 Each by mouth one time only for [address] Chest ABD/PEL WO Routine order Administer, As Directed One Time Only, via Oral, Rectal, both Oral and Rectal, Enteric Tube, Stoma or Indwelling Catheter, Enteric Contrast as designated per enteric contrast guidelines ALLERGIES/INTOLERANCES: ALLERGIES Allergen Reactions Adhesive Rash Blisters and dermatitis from op site dressing and tape Covid-19 Vaccine, M* Anaphylaxis Erythromycin Rash, GI Upset Urticarial rash, seen in [place] [facility] Latex Swelling Lisinopril Swelling Nafcillin Itching 06/29/21 negative penicillin skin testing. Passed oral amoxicillin challenge. Norvasc [Amlodipine* Swelling Wasps Mental Status Change, Rash ROS: Headaches as well as foggy state which improve after the first week or so of chemotherapy. No feveror night sweats or weight loss Nausea but no vomiting and no symptoms of bowel obstruction Fatigue which has been limiting her usual activities No dyspnea, orthopnea, paroxysmal nocturnal dyspnea chest pain dizziness or lightheadedness Discomfort in her toes with no associated significant numbness or tingling PHYSICAL EXAM: BP 123/60 Pulse 74 Temp 36.4 C (97.6 F) (Temporal) Wt 100.7 kg (222 lb) BMI 40.6 kg/m2 Body mass index is 40.6 kg/m . ECO No lymphadenopathy No palpable masses No hepatosplenomegaly DATA REVIEW: I personally reviewed the patient's data and medical records. PERTINENT LABS: Reviewed PERTINENT IMAGING: Reviewed ASSESSMENT AND Plan Grade 1 through 2 follicular lymphoma Given her age and they are well known and described increase that in patients who are 68 years old although on Bendamustine and Rituxan it is extremely reasonable to stop at 4 cycles. This is also important given that what ever treatment is not curative. Other alternative would have been to lower the dose to 70 mg per metered square which was already done. I believe balancing risks versus benefits stopping the chemo at her age of 77 is the best option. Obviously we will continue to monitor disease status regularly by physical exam as well as imaging studies We also discussed the pros and cons of maintenance rituximab which at least has the benefit of improvement of progression free survival although did not show improvement in overall survival. If logistically eligible we will switch her to subcu Rituxan ; otherwise we will maintain her with the IV route every 8 weeks for total of 2 years The patient was able to ask questions and these were answered in detail. Anca Almonte MD cc: Melba Lizama MD documented in this encounterA[facility]03-06-2023 Instructions* Patient Instructions* Anca Almonte MD - 11/25/2022 12:18 PM EST Stop allopurinol and increase gabapentin to 300 mg. Three times a day documented in this encounterAcm[facility]03-02-2023 Miscellaneous Notes* Telephone Encounter - LUZ MARIA Murray - 11/21/2022 11:05 AM EST SOCIAL WORK DISTRESS ASSESSMENT Referral made due to: Mild Distress Contact was made: By telephone call with patient Problems Addressed: Practical: Transportation - Pt noted on the PRO report for possible transportation difficulty. Pt reports she is not concerned about this. She also scored 1 on the NCCN distress scale. She reports she has been struggling with headaches and has good days and bad days. She reports she has had more good days recently and is looking forward to going to [place] this Friday. She reports she regularly speaks to her children and is well supported. Family: N/A Emotional: N/A Spiritual Concerns: N/A Physical Problems: N/A Exercising: N/A Stress Management: N/A Is the patient's distress related to a change in quality of life? No Patient with current Suicidal Ideation: No MENTAL HEALTH HISTORY: No Substance Use and Treatment History: denied History of Abuse: denied History of combat/trauma: No INTERVENTION/PLAN: Monitor patient response to treatment Communicate pertinent medical/psychosocial information to Cancer Center team Provide emotional support to patient/family Continue follow up as needed Resources and Referrals: Internal: NA External: N/A Follow up appointment with SW in: PRN Assigned SW listed in Care Team tab: Yes Assessment Completed LUZ MARIA Murray-S documented in this encounterAcmc [facility] System02-27-2023 Miscellaneous Notes* Telephone Encounter - Benedict Uribe MA - 11/18/2022 9:40 AM EST Patient has been identified by name and date of : Yes Requested Prescriptions Pending Prescriptions Disp Refills levothyroxine (SYNTHROID) 75 mcg tablet 90 tablet 1 Sig: Take 1 tablet by mouth daily before breakfast. potassium chloride (K-TAB) 10 mEq tablet 180 tablet 3 Sig: Take 1 tablet by mouth twice daily. gabapentin (NEURONTIN) 300 mg capsule 90 capsule 2 Sig: Take 1 capsule by mouth every 8 hours for 90 days. RX INSTRUCTIONS: Patient aware RX will be sent to pharmacy. No need to notify patient. Benedcit Uribe MA documented in this encounterAcmc [facility] System02-27-2023 Miscellaneous Notes* Telephone Encounter - Benedict Uribe MA - 11/18/2022 9:24 AM EST Patient has been identified by name and date of : Yes Requested Prescriptions Pending Prescriptions Disp Refills carvedilol (COREG) 25 mg tablet 30 tablet 5 Sig: Take 1 tablet by mouth twice daily. RX INSTRUCTIONS: Patient aware RX will be sent to pharmacy. No need to notify patient. Benedict Uribe MA documented in this encounterAcmc Healthcare System02-22-2023 Miscellaneous Notes* Telephone Encounter - Chinyere Shea RN - 11/13/2022 9:27 AM EST Spoke with patient, she states that her headache is not that bad today. Would like to wait for a Rxfor Zomig at this time. States she took extra strength tylenol yesterday and that helped. Instructed patient to stay ahead of headaches and take tylenol before they get bad. Instructed to call us or PCP for increase in headaches (severity or frequency) and we can have her try Rx. She doesn't remember getting the Zomig back in June. She states no issues with bowels yesterday or today. She is aware that hair thinning could be related to chemotherapy. She will discuss this with Dr. Lizama next week. Patient denies further issues or concerns at this time. She will continue to monitor BP in call with any issues/concerns. Reminded patient of after hours number if needed. Go to urgent care or ED with any severe symptoms. Patient states understanding. Sravanthi Shea RN * Telephone Encounter - César Quintero DO - 11/12/2022 6:53 PM EST I reviewed her chart. She was given a prescription for [address] Dr[address] Escudero last June. Did that help with her headache? Hair loss can be related to the chemotherapy. Perhaps she could asked Dr. Lizama to run some other test such as checking thyroid function to see if other causes for hairloss. César Quintero DO * Telephone Encounter - Chinyere Shea RN - 11/12/2022 2:31 PM EST TOXICITY CHECK SYMPTOM ASSESSMENT The patient is on Rituxan/Bendamustine C4/4 on 10/29/22 Headache: Yes states has had headaches since starting chemotherapy. States she has bad days and good days. But, worse after this last cycle. Yesterday, her headache was really bad, rates 8/1-10. Over her right eye and top of head. She also c/o of pressure on top of head, in both eyes and sometimes in right ear. Took Tylenol and did not help. Today, it's ok, not bad but it is there States it comes and goes from one day to the next. States the other day, I slept with a pillow on my head , feels like a migraine She was in to see Josse Lemus last week for BP check, Carvedilol was increased and HCTZ was decreased. Patient checked BP yesterday, 147/77. Patient has follow up with Dr. Lizama next week for BP. Instructed to continue to monitor as per Josse Lemus instructions. Visual Changes: Yes, it more fuzzy at times Dizziness: No Do you have any periods of confusion? No Mood changes: No Mouth or throat pain: No Appetite: no changes in appetite, appetite good Fluid intake: 24 oz of water, 4 oz juice, sometimes a soda, sometimes sports drink and 1-2 cups regular coffee daily Taste changes: No Nausea: No Vomiting: No Heartburn: No. Weight gain/loss: Unable to assess Episodes of palpitations/chest discomfort/pressure/pain No Shortness of breath: No, nothing new Cough: No Diarrhea: yes, States good days and bad days, Had diarrhea for 2 days this past week, 3 episodes each day of watery stool. Took 1/2 pill of Imodium and then no BM for 2 days. She states she had to dig it out. States stool is now loose for the past 2 days. Denies watery stool. Encouraged to increase fluids to stay hydrated. Instructed to monitor and call back with any further issues. Constipation: see above note. Bladder/Urinary Changes: None Pain: I always have pain denies any new or worsening pain Fever: No Chills: No Cold sensitivity: No Numbness/weakness: No Edema: No Skin changes: Patient is concerned about hair thinning more so lately. States she has hair all overher shoulders. Itching: No Yellowing of skin or eyes: Unable to assess Musculoskeletal/joint changes/issues No Bleeding issues: No Activity Level (0-100%): states very tired Do you need to take naps? No, states she was having issues sleeping at night but sleeping better now. Does the patient need interventions or same day appointment:No Reinforced CURRENT treatment education based on current and anticipated symptoms. Discussed port/line care and patient verbalizes understanding: Not Applicable Patient instructed to contact office or after hours Hematology/Oncology fellow for: temperature ? 100.4; questions or concerns. Patient verbalized understanding of when to seek medical attention and after hours number protocol. Chinyere Shea RN * Telephone Encounter - Sera Huber - 11/12/2022 12:00 PM EST Patient is requesting a nurse return her call as she has questions regarding her hair loss, not feeling well and bowels issues documented in this encounterAcmc [facility] System02-16-2023 History of Present illness Narrative* Mercy Lemus PA-C - 11/07/2022 1:24 PM EST 77 year old female with c/o elevated blood pressure. Blood pressure has been elevated since September, after around second round of chemo. Checks BP about 3 times per day, 170s/80s. Compliant with medications. Tried Taking: HCTZ 50 mg tab in am, 25 mg Tab in PM (50 mg tablets are from 2016) Carvedilol 12.5 mg tab twice daily Not use of any alleviating and aggravating factors. Admits to shaky feeling. (+) Crampy epigastric pain that occurs after eating and then lasts throughout the day. (+) ringing in ears when she is not feeling well (+) blurred vision but not loss of vision, just hard to focus. Last dose of chemo (Rituximab -Bendamustine started on 06/27/2022 ) was 1 week ago for Lymphoma. In remission. BP is elevated following days of chemo. Started Allopurinol 300 mg Tab when starting chemo August. 10/28/2022 note Brendon Stevensenter CRISIS COUNSELOR: HTN/ CVD Cardiovascular interval hx: 05/19/2021 echocardiogram status post PEA arrest due to angioedema, shortness of breath: LV small, LV SF WNL, grade 1 LVDD, basal inferior segment and basilar inferoseptal segment are mildly hypokinetic RV size WNL, RVSP not reported due to insufficient tricuspid regurg. Estimated RAP 15 mmHg. LA size WNL RA size WNL Normal vena cava motion, mildly dilated at 2.1 cm. No significant valvular disease. 08/14/2020 [facility] pharmacologic myocardial perfusion stress test: Dr. Bee:: EKG sinus rhythm VR 63 bpm, maintain sinus rhythm to testing, no ST or T wave changes. No clinical angina. Maximum heart rate 77. Uniform uptake of tracer indicating no evidence of ischemia or previous infarct is noted. Gated ejection fraction 80%. Current meds: HCTZ 50 mg 1 tablet a.m. 1/2 tablet p.m. Carvedilol 12.5 mg twice daily Eliquis 5 mg twice daily Potassium chloride 10 mEq daily Use of NTG: No Chest pain, arm, jaw pain, neck, or upper back pain suggestive of angina: No. Some pressure in chest periodically usually on sitting down after walking. Lightheaded all the time. Chronic over last 3 -4 years SOB: No Dyspnea with exertion: No orthopnea: No Cough : No racing or irregular heartbeats: No palpitations: Yes, lasts about 10 minutes. Associated with anxiety or walking. Doesn't last long. syncopal sx: Yes, goes away with sitting down or relaxing. Not related to anything specific. Headache: Yes, dull generalized headaches.Occur daily, No relieved by Tylenol. Unexplainable fatigue No Leg swelling: Yes Nausea: No diaphoresis: Yes at night time Heartburn: Not very frequently. Claudication: No Smoking: No Following Low cholesterol, high fiber diet? Yes If on statin: muscle aches? No If on statin: GI sx or diarrhea? Yes, associated with chemo. Additional history None. 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 Escudero aware[ 08/30/2022 145/74 07/23/2022 110/61 06/28/2022 153/59 06/27/2022 145/63 Last 2 Encounter Wt Readings: Date: Wt: 11/07/2022 101.2 kg (223 lb) 10/28/2022 101.2 kg (223 lb) Component Latest Ref Rng & Units 08/30/2022 09/24/2022 10/28/2022 WBC 3.70 - 11.00 k/uL 4.32 3.29 (L) 4.09 RBC 3.90 - 5.20 m/uL 3.90 3.95 3.74 (L) Hemoglobin 11.5 - 15.5 g/dL 12.3 12.5 11.7 Hematocrit 36.0 - 46.0 % 37.0 37.5 36.1 MCV 80.0 - 100.0 fL 94.9 94.9 96.5 MCH 26.0 - 34.0 pg 31.5 31.6 31.3 MCHC 30.5 - 36.0 g/dL 33.2 33.3 32.4 RDW-CV 11.5 - 15.0 % 14.5 14.0 14.6 Platelet Count 150 - 400 k/uL 151 109 (L) 111 (L) MPV 9.0 - 12.7 fL 10.2 9.6 9.9 Neut% % 54.2 66.5 69.5 Abs Neut (ANC) 1.45 - 7.50 k/uL 2.34 2.19 2.84 Lymph% % 30.8 13.1 16.1 Abs Lymph 1.00 - 4.00 k/uL 1.33 0.43 (L) 0.66 (L) [place]% % 10.9 12.8 10.5 Abs [place] <0.87 k/uL 0.47 0.42 0.43 Eosin% % 3.2 7.0 3.2 Abs Eosin <0.46 k/uL 0.14 0.23 0.13 Baso% % 0.7 0.3 0.2 Abs Baso <0.11 k/uL 0.03 <0.03 <0.03 Immature Gran % % 0.2 0.3 0.5 IMMATURE GRANS (ABS) <0.10 k/uL <0.03 <0.03 <0.03 NRBC /100 WBC 0.0 0.0 0.0 Absolute nRBC <0.01 k/uL <0.01 <0.01 <0.01 DTYPE Auto Auto Auto Protein, Total 6.3 - 8.0 g/dL 5.8 (L) 5.7 (L) 5.6 (L) Albumin 3.9 - 4.9 g/dL 3.8 (L) 3.7 (L) 3.7 (L) Calcium 8.5 - 10.2 mg/dL 9.2 9.7 9.1 Bilirubin, Total 0.2 - 1.3 mg/dL 0.3 0.3 0.2 Alkaline Phosphatase 34 - 123 U/L 76 73 67 AST 13 - 35 U/L 18 21 20 ALT 7 - 38 U/L <5 (L) 6 (L) <5 (L) Glucose 74 - 99 mg/dL 101 (H) 99 95 BUN 7 - 21 mg/dL 13 11 12 Creatinine 0.58 - 0.96 mg/dL 0.72 0.63 0.56 (L) Sodium 136 - 144 mmol/L 139 139 138 Potassium 3.7 - 5.1 mmol/L 3.9 4.0 4.0 Chloride 97 - 105 mmol/L 105 104 105 CO2 22 - 30 mmol/L 26 27 27 Anion Gap 9 - 18 mmol/L 8 (L) 8 (L) 6 (L) eGFR >=60 mL/min/1.73m 86 91 94 LD 135 - 214 U/L 170 184 166 Uric Acid 2.5 - 6.6 mg/dL 4.3 4.2 3.4 Component Latest Ref Rng & Units 05/28/2021 07/07/2021 04/22/2022 TSH 0.270 - 4.200 mIU/L 4.970 (H) 2.030 1.310 Component Latest Ref Rng & Units 09/20/2020 04/22/2022 NT Pro BNP <450 pg/mL 501 (H) 455 (H) HISTORIES FAMILY HISTORY Problem Relation Age of Onset Heart Mother Cancer Mother lung Heart Father other (Other) Father Heart Brother [place], aneurysm Migraines Daughter Macular Degen Maternal Aunt PAST MEDICAL HISTORY Diagnosis Date ANXIETY STATE NOS 06/07/2005 Arthritis Cancer (HCC) Carpal tunnel syndrome 06/07/2005 Cholelithiasis 06/17/2012 DEPRESSIVE DISORDER NEC 06/07/2005 Diverticulosis of colon (without mention of hemorrhage) Dizziness and giddiness 02/26/2010 GENERAL OSTEOARTHROSIS 06/07/2005 Goiter, unspecified 12/11/2010 Headache(784.0) 02/26/2010 Chronic. 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 Ramírez, severe PAST SURGICAL HISTORY Procedure Laterality Date ABDOMINAL SURGERY HX ARTHRP KNE CONDYLE&PLATU MEDIAL&LAT COMPARTMENTS February2010 Knee replacement, total, Left ARTHRP KNE CONDYLE&PLATU MEDIAL&LAT COMPARTMENTS 07/2010 Knee replacement, total, Right BACK SURGERY HX COLONOSCOPY FLX DX W/COLLJ SPEC WHEN PFRMD 06/05/2011 Colonoscopy COLONOSCOPY FLX DX W/COLLJ SPEC WHEN PFRMD N/A 12/04/2016 ESOPHAGOGASTRODUODENOSCOPY TRANSORAL DIAGNOSTIC N/A 12/04/2016 DEVORA FILTER 2019 INSJ TUNNELED CTR VAD W/SUBQ PORT AGE 5 YR/> 06/05/2022 JOINT REPLACEMENT HX L'SCOPE CHOLECYSTECTOMY 07/30/2022 Dr Gonzalez NEPHRECTOMY PARTIAL 1986 Nephrectomy, partial left (benign) PAST SURGICAL HISTORY OF 06/2018 lumbar burger with wound infection TONSILLECTOMY HX TOTAL ABDOMINAL HYSTERECT W/WO RMVL TUBE OVARY 1985 Hysterectomy, NEISHA VAGINAL HYSTERECTOMY Social History Tobacco Use Smoking status: Never Smokeless tobacco: Never Vaping Use Vaping Use: Never used Substance Use Topics Alcohol use: No Drug use: No ACTIVE PROBLEM LIST Essential Hypertension Generalized Osteoarthrosis, Unspecified Site Hyperlipidemia, Unspecified Other Specified Idiopathic Peripheral Neuropathy Allergic Rhinitis Headache(784.0) Nontoxic Multinodular Goiter Depressive Disorder, Not Elsewhere Classified Mixed Incontinence Urge and Stress Tinnitus of Both Ears Back Pain Ocular Hypertension, Bilateral Optic Disc Cupping Combined Forms of Age-Related Cataract of Both Eyes Dry Eye Syndrome Vitreous Floaters of Both Eyes Meibomian Gland Dysfunction (Mgd) 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 Chronic Bilateral Low Back Pain With Sciatica Chronic Left-Sided Thoracic Back Pain Spinal Stenosis, Lumbar Region, With Neurogenic Claudication Obesity due to excess calories, unspecified obesity severity E66.09 Essential Tremor Christiana On Cpap Chronic Bilateral Low Back Pain With Bilateral Sciatica Spondylosis of Lumbar Region Without Myelopathy Or Radiculopathy Spinal Stenosis, Lumbar Region With Neurogenic Claudication Lumbar Spondylosis Wound Infection After Surgery History of Dvt (Deep Vein Thrombosis) History of Lumbar Fusion Acquired Spondylolisthesis of Lumbosacral Region Lumbosacral Stenosis Poor Posture Non-Rheumatic Tricuspid Valve Insufficiency Bilateral Carotid Artery Stenosis Chronic Tension-Type Headache, Intractable Intractable Chronic Migraine Without Aura and Without Status Migrainosus Cervicalgia Chronic Migraine Without Aura, With Intractable Migraine, So Stated, With Status Migrainosus Chronic Daily Headache Difficult Airway Lymphadenopathy, Generalized Mild Protein-Calorie Malnutrition (Hcc) Hypothyroid Obesity, Class II, Bmi 35-39.9 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 allopurinol (ZYLOPRIM) 300 mg tablet TAKE 1 TABLET BY MOUTH ONCE DAILY 90 tablet 3 carvedilol (COREG) 12.5 mg tablet Take 1 tablet by mouth twice daily. 180 tablet 1 ZOLMitriptan (ZOMIG) 5 mg tablet Take 1 tablet by mouth as needed. 3 tablet 0 OTC PRODUCT Super Snooze with Melatonin: Take one capsule by mouth at bedtime as needed. lidocaine-prilocaine (EMLA) 2.5-2.5 % cream Apply to affected area as needed. 30 g 2 levothyroxine (SYNTHROID) 75 mcg tablet Take 1 tablet by mouth daily before breakfast. 90 tablet 1 apixaban (ELIQUIS) 5 mg tab(s) Take 1 tablet by mouth twice daily. 180 tablet 3 potassium chloride (K-TAB) 10 mEq tablet Take 1 tablet by mouth twice daily. 180 tablet 3 famotidine (PEPCID) 20 mg tablet Take 1 tablet by mouth twice daily as needed. 180 tablet 1 prochlorperazine (COMPAZINE) 10 mg tablet Take 1 tablet by mouth every 6 hours as needed. 30 tablet2 acetaminophen 650 mg CR tablet Take 650 mg by mouth every 8 hours as needed. EPINEPHrine (EPIPEN) 0.3 mg/0.3 mL auto-injector Use as directed 2 Each 1 multivitamin/iron/folic acid (CENTRUM ULTRA WOMEN'S ORAL) Take 1 tablet by mouth once daily. gabapentin (NEURONTIN) 300 mg capsule Take 1 capsule by mouth every 8 hours for 90 days. 90 capsule2 omeprazole (PRILOSEC) 20 mg capsule Take 1 capsule by mouth twice daily. 1/2 hr before meal. 60 capsule 5 No current facility-administered medications for this visit. BP CONTROLLED (<130/80) Never done SHINGRIX VACCINE(1 of 2) Never done ADVANCE DIRECTIVE DISCUSSION Never done EXAM: BP 166/88 Pulse 82 Resp 20 Wt 101.2 kg (223 lb) SpO2 99% BMI 40.79 kg/m Orthostatic vitals are confusing. No significant orthostatic drop but recheck seated BP 160/86 BP w/Orthostatic Vitals Date and Time Orthostatic BP Orthostatic Pulse BP Pulse BP Position BP Site BP Cuff Size 11/07/22 1625 120/70 76 -- -- Standing Left Arm Regular Adult 11/07/22 1624 124/70 72 -- -- Sitting Left Arm Regular Adult 11/07/22 1623 132/70 56 -- -- Supine Left Arm Regular Adult 11/07/22 1320 -- -- 166/88 82 -- -- -- Peak Flow Date and Time PF Resp 11/07/221319 -- 20 On sitting from lying was momentarily dizzy and felt weak for about 30 sec. Pleasant overweight adult woman in no acute distress. Alert and oriented all spheres. Normal affectand cognition. Mildly anxious. Speech normal. No deficits to learning or comprehension. Skin warm, dry, pink to lips and nailbeds. Normal turgor. Respirations regular and unlabored. Speaking easily in full sentences, energetic in conversation and cheerful. HEENT: NCAT. No scleral icterus or conjunctival injection. TM's clear. Nose and oropharynx free from injection or lesion. Oral membranes moist and pink. No cervical lymph nodes. Thyroid non-tender, no masses, or enlargement. Carotids pulses 2+/4+ without bruits. Neck veins flat. Chest is normal shape. Lungs are clear to all georges with good air exchange through out. HRRR without murmur or gallop. No lifts, heaves, or rubs. Extrem: no clubbing or cyanosis. Edema: 0-1+/4 pitting. Extremities are warm and pink with prompt capillary refill. ASSESSMENT/PLAN: 1. Essential hypertension - ICD9: 401.9, ICD10: I10 (primary diagnosis) - poor control - Increase Carvedilol 12.5mg to 25 mg Tab BID: cautioned on risk of increased dizziness, need to use caution push fluids. - Decrease HCTZ to 50 mg Tab daily - Recommended regular aerobic exercise. - Recommend home blood pressure monitoring, to bring results in on next visit - BP recheck at scheduled appointment with Dr. Lizama in 2 weeks - Goal of BP <140/90 2. SOB (shortness of breath) - ICD9: 786.05, ICD10: R06.02 - No current symptoms 3. B-cell lymphoma, unspecified B-cell lymphoma type, unspecified body region (HCC) - ICD9: 202.80,ICD10: C85.10 - In remission - Last round of chemotherapy last week - Continue to follow with Dr. Melba Escudero 4. Chronic respiratory failure with hypoxia (HCC) - ICD9: 518.83, 799.02, ICD10: J96.11 - Not demonstrated. 5. Intermittent lightheadedness - ICD9: 780.4, ICD10: R42 - Exacerbated by standing too quickly - Continue to monitor symptoms - orthostatic vital signs show no drop but significantly lower. Recheck seated BP high again. - possible chemo side effect vs orthostatic intolerance. - Educated patient to call 911 if she starts to experience any abnormal symptoms such as chest pain, pain that radiates into either arm or jaw, heaviness on chest, heart burn, or syncope. - Prior workup for this including echo and nuclear pharmacologic testing showed no concerns Recheck in 4 weeks. Mercy Lemus PA-C documented in this encounterAcmc Healthcare System02-13-2023 Miscellaneous Notes* Telephone Encounter - Sara Lindsay - 11/04/2022 2:31 PM EST Spoke with patient and relayed message. Patient verbalized understanding. Refused appointment this week due to recently having a chemo treatment and is weak. Wanted Dr. Lizama's first available. Scheduled for 11/18/22. Sara Lindsay * Telephone Encounter - Gini Ayala APRN.CNP - 11/04/2022 1:07 PM EST I'm sorry, but she needs a [id number] appt. We haven't seen her in over 6 months. We need to be able to evaluate and assess her. I also would not recommend adjusting her own medication without being advised to do so by a provider. * Telephone Encounter - Mercy Mendez RN - 11/04/2022 10:13 AM EST Patient phoned to report elevated BP. Yesterday: 184/89 highest, 164/85 lowest, today 161/80. Her monitor does not show HR. Reports she is taking hctz 50 mg in the am and 25 mg in the pm for the pastmonth- decided to do this on her own- a doctor did not advise her. Her hctz bottle states it was prescribed by Brittanie Mckeon Np, in 2016. Advised patient the medication is and probably not working. Reports she is also taking coreg 12.5 mg twice daily. Reports she has a dull KNIGHT, and dizziness that comes and goes, but does not affect her ambulating around her home with a walker. Reports sheis unable to come in for an appt as she lives alone, does not drive, and does not have a ride. Reports she had her last chemo (for lymphoma) on 10-30-22 and is in remission, but the chemo took a lot out of her. Last ov w/pcp: 04-22-22. Advised patient, since she cannot come in, to check BP 3 times a day, for a few days, and write each one down, and call back in 3 days to report the readings to nurse.Advised if condition worsens, or develops serious s/s: CP, SOB, worsening dizziness, to call squad.Patient agreeable. Please advise patient. documented in this encounterAcmc Healthcare System02-06-2023 History of Present illness Narrative* Brendon Coppola APRN.CRISIS COUNSELOR - 10/28/2022 11:33 AM EST Chief Complaint Patient presents with: Established Patient HPI: Lisa Up is a 76 year old female who presents here today for evaluation for treatment tomorrow. Per Dr. Escudero's previous note: H/o swelling in her neck and chest tightness who presented with an abnormal CT scan of the neck andchest. She has generalized adenopathy involving her supraclavicular, bilateral axillary, and subcarinal regions. 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 She is scheduled for rem oval of her prosthesis because of recurrent infection. She has unexplained weight loss, or increased fatigue. She has multiple transfusions in the past from her surgery. She denied history of hepatitis or HIV infection. Recent evaluation for her symptoms and axillary adenopathy confirm her diagnosis of stage IV follicular lymphoma. FINAL DIAGNOSIS A. 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 - See comment. Flow cytometric analysis of the bone marrow aspirate reveals that 15% of total events have the [id number] side scatter properties of lymphocytes. Interpretation: The lymphocytes are composed of a mixture of T cells (58%; CD4:CD8 ratio = 1.15), NK cells (4%) andB cells (34%). The majority of the B cells display an abnormal immunophenotype, and are positive for CD19, CD20 (bright), CD45 and kappa surface light chain. The B cells are negative for CD5, CD10 and the the remaining markers tested. CD200 could not be interpreted on the abnormal B cells due to nonspecific staining. Granulocytic elements are 64% of the events. Blasts are not increased. The findings are diagnostic of involvement by a B-cell lymphoproliferative disorder. Current treatment: Rituximab -Bendamustine (started on 06/27/2022) She completed 2 cycle of chemotherapy in August 2022, unfortunately she had acute cholecystitis and subsequently had a laparoscopic cholecystectomy. I was really tired after the last treatment. I slept a lot. Appetite:Ok. Energy level:Tired. Denies fevers. Mouth:denies sores Resp:denies cough or sob Cardiac:denies chest pain/palpitations GI:denies abd pain, n/v, moving bowels regularly :denies dysuria/hematuria Extrem:chronic back pain Neuro:+neuropathy to legs/feet Skin:denies rashes Heme:denies bleeding The ROS is otherwise negative. Past medical history, appointments, medications, allergies reviewed. No changes. EXAM: BP 168/84 Pulse 73 Temp 36.6 C (97.9 F) (Temporal) Wt 101.2 kg (223 lb) BMI 40.79 kg/m APPEARANCE Well appearing, alert, in no acute distress, well-hydrated, well nourished. HEART RRR with normal S1 and S2, no murmurs LUNG clear to auscultation LYMPH NODES No cervical lymphadenopathy, No supraclavicular lymphadenopathy, and No axillary lymphadenopathy. ABDOMEN obese, bowel sounds normoactive, soft, non-tender EXTREMITIES No edema NEURO Awake, alert and oriented x 3, Normal gait, and No involuntary motions. SKIN Skin color, texture, turgor normal, no suspicious rashes or lesions LABS: Pending ASSESSMENT/PLAN: 1. 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 Thrombocytopenia, secondary - ICD9: 287.49, ICD10: D69.59 Progression of disease noted last year with constitutional symptoms and adenopathy (all resolved with treatment) - Complete response after 2 cycles of chemotherapy. - Pt. was more fatigued after last cycle. She did receive neulasta with cycle #3. - Labs pending. - Proceed as scheduled tomorrow for #4 rituxan/treanda-pending all labs. - CT's December. - Follow up as scheduled. - Pt. aware to call office with any questions/concerns. The patient indicates understanding of these issues and agrees with the plan. All documentation from previous visit of 09/30/22-Dr. Escudero was copied and pasted, documentation has been reviewed and edited as necessary for today's visit. Brendon Coppola APRN.LEONCIO documented in this encounterAcmc Healthcare System01-24-2023 History of Present illness Narrative* Shawna Pederson RN - 10/15/2022 10:50 AM EST [facility] Enrollment Provider Action/FYI: - ckd, htn Patient referred by: [facility] Deyanira Contact made with patient: No - 2nd attempt to reach patient, left another message: Hi my name is Shawna Pederson RN and I am calling from the [facility] on behalf of your PCP, Sylvia Lizama MD.We are excited to share with you a new program to help you manage your health. Please call me back at [phone]. I hope you can take the time to speak with me. (Keep encounter open for additional two business days in case patient calls back. Close encounter if no response by end of second business day) Closing: Could not reach the patient after two attempted outreaches. 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 to retry patient in one week. END OUTREACH * Shawna Pederson RN - 10/11/2022 5:25 PM EST [facility] Enrollment Provider Action/FYI: - ckd, htn Patient referred by: C Deyanira Contact made with patient: No - Left Message: Hi my name is Shawna Pederson RN and I am calling from the [facility] on behalf of your PCP, Sylvia Lizama MD. We are excited to share with you a new program to help you manage your health. Please call me back at [phone] between the hours of 8am-5pm Friday- Friday. You will receive another phone call from me within the next two business days.I hope you can take the time to speak with me. (Keep encounter open and attempt 2nd outreach in two business days from today) END OUTREACH documented in this encounterAcmc Healthcare System01-13-2023 Miscellaneous Notes* Telephone Encounter - Shannon Hui RN - 10/04/2022 2:24 PM EST Patient informed of Dr. Escudero's response, stated understanding. Discussed starting Claritin, patient stated understanding. Shannon Hui RN * Telephone Encounter - Melba Escudero MD - 10/04/2022 1:58 PM EST She had Neulasta injection once a cycle of chemotherapy. She may take Claritin and Tylenol as needed for headaches and pain. Melba Escudero MD * Telephone Encounter - Shannon Hui RN - 10/04/2022 1:42 PM EST TOXICITY CHECK SYMPTOM ASSESSMENT The patient is on Bendamustine/Rituxan, received neulasta yesterday. Headache: Yes 5-6/10 aching headache, took tylenol this AM. Patient stated the tylenol helped a little but still there. Visual Changes: No Dizziness: No Do you have any periods of confusion? No Mood changes: No Mouth or throat pain: No Appetite: no changes in appetite, appetite fair Taste changes: No Nausea: No Vomiting: No Heartburn: No. Weight gain/loss: No Episodes of palpitations/chest discomfort/pressure/pain No Shortness of breath: Maybe a little but its kind've what I normally have. Cough: No Diarrhea: no Constipation: no Bladder/Urinary Changes: urinating more frequently Pain: Lower back pain, more in the middle intermittent 8/10, more pressure than her usual back pain. Patient stated moving exacerbates the pain. Patient stated sitting and laying helps alleviate the pain. Fever: Did not check Chills: Yes shaking chills all night until she got extra blankets Cold sensitivity: No Numbness/weakness: Yes patient is able to get around with her walker without difficultly but feels very weak. Edema: No Skin changes: No Itching: No Yellowing of skin or eyes: No Musculoskeletal/joint changes/issues No Bleeding issues: No Patient stated last night she had shaking chills pretty much all night until she covered up with extra blankets. Patient did not check her temperature. Patient stated she woke up this morning and feels very weak. Patient is ambulating with her walker without difficulty. Patient is trying to push fluids today because she did not feel she drank enough yesterday. Patient stated she is urinating more frequently but she also has been drinking more fluids, denies dysuria, hematuria, or flank pain.Patient has 8/10 lower back pain more in the middle that feels like pressure. Patient stated she is used to having back pain but this is worse from her normal baseline. Moving/walking exacerbate the pain, she feels more hunched over today. Sitting/lying down alleviate the pain to 0/10. Patient has 5-6/10 aching headache pain, took tylenol which helped with the pain a little but still has headache pain. Patient informed this nurse will speak to Dr. Escudero regarding symptoms and will call her back with further instructions. Does the patient need interventions or same day appointment:will discuss concerns with Dr. Kena Hui RN documented in this encounterAcmc Healthcare System01-12-2023 Nurse Note* Ashley Beauchamp LPN - 10/03/2022 2:15 PM EST Patient presents with: Imm/Inj Pt is identified by name and birthdate: Yes. Allergies and medications reviewed. Latex allergy? No. Does this patient have: Unplanned weight loss or gain of greater than 10 pounds, or a change of appetite over the last year? No Does the patient have any concerns about safety in the home/falls? Yes, uses wheeled walker Has the patient fallen in the past year? No Does the patient have difficulty performing or completing routine daily living activities? No Does this patient have concerns about personal safety? No Is patient having pain? Pain: No=0 (pain 0 on a scale of 0-10). Health Maintenance: Reviewed and updated. Does patient have MyChart access or Caregiver proxy: yes Pt/Caregiver willingness and readiness to learn assessed: Yes. Barriers: none Spoke with Pharmacist Adarsh Fu PHD and Dr.Lapman Escudero who both authorized administration. Pt. Informed undersigned the past reaction was from her Covid vaccine and not the Neulasta. Neulasta injection administered, right arm,tolerated well, no immediate adverse reactions noted. Ashley Beauchamp LPN documented in this encounterAcmc Healthcare System01-11-2023 Miscellaneous Notes* Telephone Encounter - Missy Peralta LPN - 10/02/2022 11:24 AM EST This patient has Medicare and does not need referral. Orders are in for 10/03/2022. Missy Peralta LPN * Telephone Encounter - DOREEN Roman - 10/02/2022 10:[address] beacon referral for scheduling. * Telephone Encounter - Lou Plascencia RN - 10/02/2022 8:16 AM EST Davis Aj in pharmacy- On Day 3 put on yesterday at 0824 for 10/03/2022 * Telephone Encounter - Lou Plascencia RN - 10/02/2022 8:08 AM EST Message sent to pharmacist regarding this. * Telephone Encounter - DOREEN Roman - 10/01/2022 4:11 PM EST Order needs placed, there is not a referral for me to schedule from. * Telephone Encounter - Lou Plascencia RN - 10/01/2022 11:10 AM EST Please make an injection appt for pt. She will be receiving neulasta on . documented in this encounterAcmc Healthcare System01-10-2023 Miscellaneous Notes* Telephone Encounter - Lou Plascencia RN - 10/01/2022 11:58 AM EST Pt gone for the day. BP below was taken approx 15 mins before end of infusion. * Telephone Encounter - Melba Escudero MD - 10/01/2022 11:38 AM EST Noted. Repeat blood pressure before she leaves today. Melba Escudero MD * Telephone Encounter - Lou Plascencia RN - 10/01/2022 9:[address] Kena LANGSTON Pt's BP at today's visit is 194/76 P59 BP was 163/82 P72 at OV yesterday. She states she did not take any of her BP meds this morning. Pt stated she will take meds as soon as she gets home. documented in this encounterAcmc Healthcare System01-10-2023 History of Present illness Narrative* Edyta Whelan RN - 10/01/2022 9:07 AM EST Study Number: [id number] Study Title: Collection of Blood & Bone Marrow from [employer] & Patients for Research Purposes Consent expiration date: 12/10/2022 Spoke with patient at the request of Melba Escudero M.D. Treatment plan, including all testing, potential risks/benefits, side effects and management, treatment alternatives, and follow-up explained. Roles of the clinical trial personnel to be involved and the financial responsibilities regarding procedures and medications were discussed. Discussed the importance of effective contraception during andfollowing completion of active therapy for NA. Initial questions were answered and a copy of the informed consent was given to patient with the instructions to read it and call with any additional questions. Contact information for the research nurse was given to the patient. The patient verbalizedappropriate understanding of all the aforementioned information presented. Time of Presentation:8.27AM October 01, 2022 Edyta Whelan RN [phone] documented in this encounterAcmc Healthcare System01-03-2023 History of Present illness Narrative* Dannielle Doll RT(R) - 09/24/2022 11:00 AM EST Radiology Service Progress Note PATIENT NAME: iLsa Up DATE OF SERVICE: September 24, 2022 TIME: 11:22 AM PATIENT IDENTITY VERIFICATION COMPLETED USING TWO (2) IDENTIFIERS: Name and Date of confirmedby patient verbally. FALL SCREENING: Has the patient had 2 falls in the last year or 1 fall with injury or currently using an Ambulatory Assistive Device (Walker, Cane, Wheelchair, Crutches, etc.)? No PATIENT GENDER DATA: Female. status: : No status: NO. PATIENT RELEVANT IMPLANT DATA REVIEWED: Yes RADIOLOGY DEPARTMENT: CT; Exam(s) Completed: Chest Abdomen Pelvis PERIPHERAL IV DATA: power port accessed by BrainBot SIGNED BY: RT Blanca(Barbra) September 24, 2022 11:22 AM documented in this encounterAcmc Healthcare System12-09-2022 History of Present illness Narrative* Melba Escudero MD - 08/30/2022 1:24 PM EST PATIENT NAME: Lisa Up. CLINIC NO: [id number]. ATTENDING PHYSICIAN: Melba Escudero MD. DATE OF SERVICE: 08/30/2022. 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 She has generalized adenopathy involving her supraclavicular, bilateral axillary, and subcarinal regions. 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 She is scheduled for removal of her prosthesis because of recurrent infection. She has unexplained weight loss, or increased fatigue. She has multiple transfusions in the past from her surgery. She denied history of hepatitis or HIV infection. Recent evaluation for her symptoms and axillary adenopathy confirm her diagnosis of stage IV follicular lymphoma. FINAL DIAGNOSIS A. 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 - See comment. Flow cytometric analysis of the bone marrow aspirate reveals that 15% of total events have the [id number] side scatter properties of lymphocytes. Interpretation: The lymphocytes are composed of a mixture of T cells (58%; CD4:CD8 ratio = 1.15), NK cells (4%) andB cells (34%). The majority of the B cells display an abnormal immunophenotype, and are positive for CD19, CD20 (bright), CD45 and kappa surface light chain. The B cells are negative for CD5, CD10 and the the remaining markers tested. CD200 could not be interpreted on the abnormal B cells due to nonspecific staining. Granulocytic elements are 64% of the events. Blasts are not increased. The findings are diagnostic of involvement by a B-cell lymphoproliferative disorder. Current treatment: Rituximab -Bendamustine (started on 06/27/2022) Interim history: She had her first cycle of chemotherapy in June. Unfortunately she had acute cholecystitis and subsequently had a laparoscopic cholecystectomy. She is slowly recovering from her surgery. Denies fever chills or night sweat. She has no early satiety, itching or jaundice. She has no pain under her arms, and her axillary adenopathy has improved. Denies any nausea, vomiting or abdominal pain.. She noticed no bleeding or bruising. She has no cough or shortness of breath. No swelling or legs or calf tenderness. All medications & allergies updated and reviewed by me. REVIEW OF SYSTEMS: CONSTITUTIONAL: No fevers, chills, nightsweats, unintended weight loss HEENT: Denies frequent or severe heaches, nasal congestion/sinus symptoms, problematic allergy problems. EYES: No diplopia or blurry vision. CARDIOVASCULAR: No chest pain, dyspnea, palpitations, orthopnea, PND, ankle edema. PULM: No dyspnea, unexplained cough. GI: No dysphagia/odynophagia, problematic reflux, constipation, diarrhea, changes in stool habits, hematochezia, melena. : No new urinary complaints, including dysuria, gross hematuria or pyuria. NEURO: No new balance problems, peripheral weakness/paresthesias or numbness of concern. MUSC-SKEL: No new joint pain, swelling, or erythema. + Chronic lower back pain from nonhealing wound. PSY: No concerns regarding depression, anxiety or panic. INTEGUMENTARY: No new skin changes (rash, new or changing mole, new growth) PHYSICAL EXAMINATION: 75-year-old moderately obese female in no acute distress Performance Status:80% BP 145/74 Pulse 65 Temp (Src) 97.6 (Temporal) Wt 220 lb (99.8kg) HEENT: Head is normocephalic, atraumatic. Sclerae white, conjunctivae pink. PEERL. EOMs are intact.Oropharynx is benign. LYMPHATICS: There is no palpable adenopathy in supraclavicular region, axillary or inguinal adenopathy LUNGS: Lungs are clear to percussion with expiratory wheezing. HEART: Heart is normal without murmurs, gallops, or rubs. ABDOMEN: Obese, soft and nontender without organomegaly. No masses can be palpated. BACK: Healed incision in the lumbar region. No erythema or tenderness. EXTREMITIES: Are without edema. No petechiae NEUROLOGIC: Exam is physiologic LABS: Component Latest Ref Rng & Units 08/30/2022 WBC 3.70 - 11.00 k/uL 4.32 RBC 3.90 - 5.20 m/uL 3.90 Hemoglobin 11.5 - 15.5 g/dL 12.3 Hematocrit 36.0 - 46.0 % 37.0 MCV 80.0 - 100.0 fL 94.9 MCH 26.0 - 34.0 pg 31.5 MCHC 30.5 - 36.0 g/dL 33.2 RDW-CV 11.5 - 15.0 % 14.5 Platelet Count 150 - 400 k/uL 151 MPV 9.0 - 12.7 fL 10.2 Neut% % 54.2 Abs Neut (ANC) 1.45 - 7.50 k/uL 2.34 Lymph% % 30.8 Abs Lymph 1.00 - 4.00 k/uL 1.33 [place]% % 10.9 Abs [place] <0.87 k/uL 0.47 Eosin% % 3.2 Abs Eosin <0.46 k/uL 0.14 Baso% % 0.7 Abs Baso <0.11 k/uL 0.03 Immature Gran % % 0.2 IMMATURE GRANS (ABS) <0.10 k/uL <0.03 NRBC /100 WBC 0.0 Absolute nRBC <0.01 k/uL <0.01 DTYPE Auto Component Latest Ref Rng & Units 08/30/2022 Protein, Total 6.3 - 8.0 g/dL 5.8 (L) Albumin 3.9 - 4.9 g/dL 3.8 (L) Calcium 8.5 - 10.2 mg/dL 9.2 Bilirubin, Total 0.2 - 1.3 mg/dL 0.3 Alkaline Phosphatase 34 - 123 U/L 76 AST 13 - 35 U/L 18 ALT 7 - 38 U/L <5 (L) Glucose 74 - 99 mg/dL 101 (H) BUN 7 - 21 mg/dL 13 Creatinine 0.58 - 0.96 mg/dL 0.72 Sodium 136 - 144 mmol/L 139 Potassium 3.7 - 5.1 mmol/L 3.9 Chloride 97 - 105 mmol/L 105 CO2 22 - 30 mmol/L 26 Anion Gap 9 - 18 mmol/L 8 (L) eGFR >=60 mL/min/1.73m 86 LD 135 - 214 U/L 170 Uric Acid 2.5 - 6.6 mg/dL 4.3 ASSESSMENT/PLAN: 75-year-old lady with a history of stage IV low-grade follicular lymphoma. 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 -Repeat CBC, CMP, LDH, uric acid and office visit in 4 weeks. -Repeat CT scan of chest abdomen pelvis after this cycle of chemotherapy -If she is in complete remission on imaging, then 2 more cycles of chemotherapy. 2) status postcholecystectomy for acute cholecystitis -Recovering. -No complications postoperatively, and no evidence of DVTs Plan: -Follow-up with PCP. I spent 30 minutes in the visit, with more than 50% of the total [id number] time of the visit in counseling / coordination of care. Portions of this documentation were copied and pasted from previous office visit notes in order to provide a cohesive continuity of the history. The note has been reviewed and edited and updated as necessary. Melba Escudero MD Cc: Dr. Sylvia Lizama documented in this encounterAcmc Healthcare System11-30-2022 History of Past illness Narrative* Problem Noted Date Diagnosed Date Resolved Date Acute cholecystitis 08/21/2022 07/08/2023 07/08/20 23 Injury of kidney 08/21/2022 07/08/2023 07/08/2023 Abnormal mammogram 05/03/2022 3 Acute anoxic encephalopathy 06/01/2021 07/08/2023 07/08/2023 Hypokalemia 05/30/2021 05/31/2021 Hyponatremia 05/30/2021 05/31/2021 Delirium 05/28/2021 05/31/2021 Angioedema 05/19/2021 05/31/2021 Mild protein-calorie malnutrition 05/19/2021 04/03/2023 [place]ayson angina 05/18/2021 05/19/2021 Acute respiratory failure with hypoxia 05/18/2021 05/31/2021 Lymphadenopathy, generalized 05/18/2021 11/27/2022 Chronic tension-type headache, intractable 07/07/2019 11/27/2022 Intractable chronic migraine without aura and without status migrainosus 07/07/2019 11/27/2022 Last Assessment & Plan: Assessment: otc analgesics as needed Cervicalgia 07/07/2019 11/27/2022 Chronic daily headache 07/07/201911/27 History of lumbar fusion 03/17/201904/2023 Last Assessment & Plan: Assessment: h/o Acquired spondylolisthesis o f lumbosacral region 03/17/2019 11/27/2022 Lumbosacral stenosis 03/17/2019 023 Poor posture 03/17/2019 11/27/2022 Wound infection after surgery 11/24/2018 04/03/2023 Overview: Had sepsis and multiple admissions after lumbar burger 07/09 Had wound vac and IV antibiotics Infection due to Enterobacter cloacae 08/31/201807/08/2023 Bacteremia due to methicilli n susceptible Staphylococcus aureus (MSSA) 08/28/2018 07/08/2023 07/08/2023 MSSA (methicillin susceptibl e Staphylococcus aureus) infection 08/28/2018 07/08/2023 07/08/2023 Altered mental status 08/04/2018 07/08/20232022 Diarrhea 08/04/2018 07/08/2023 07/08/2023 Encephalopathy 08/01/2018 07/08/2023 07/08/2023 Spinal stenosis, 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 Primary localized osteoarthrosis, lower leg 02/13/2010 12/11/2010 Anxiety state, unspecified 06/07/2005 0 12/11/2010 Depressive disorder, not elsewhere classified 06/07/20 05 12/11/2010 Carpal tunnel syndrome 06/07/200512/11 documented as of this encounter (statuses as of 07/27/2023) [facility] History of Past illness Narrative* Problem Noted Date Diagnosed Date Resolved Date Acute cholecystitis 08/21/2022 07/08/2023 07/08/20 23 Injury of kidney 08/21/2022 07/08/2023 07/08/2023 Abnormal mammogram 05/03/2022 Acute anoxic encephalopathy 06/01/2021 07/08/2023 07/08/2023 Hypokalemia 05/30/2021 05/31/2021 Hyponatremia 05/30/2021 05/31/2021 Delirium 05/28/2021 05/31/2021 Angioedema 05/19/2021 05/31/2021 Mild protein-calorie malnutrition 05/19/2021 04/03/2023 [place]ayson angina 05/18/2021 05/19/2021 Acute respiratory failure with hypoxia 05/18/2021 05/31/2021 Lymphadenopathy, generalized 05/18/2021 11/27/2022 Chronic tension-type headache, intractable 07/07/2019 11/27/2022 Intractable chronic migraine without aura and without status migrainosus 07/07/2019 11/27/2022 Last Assessment & Plan: Assessment: otc analgesics as needed Cervicalgia 07/07/2019 11/27/2022 Chronic daily headache 07/07/201911/27 History of lumbar fusion 03/17/201904/2023 Last Assessment & Plan: Assessment: h/o Acquired spondylolisthesis o f lumbosacral region 03/17/2019 11/27/2022 Lumbosacral stenosis 03/17/2019 023 Poor posture 03/17/2019 11/27/2022 Wound infection after surgery 11/24/2018 04/03/2023 Overview: Had sepsis and multiple admissions after lumbar burger 07/09 Had wound vac and IV antibiotics Infection due to Enterobacter cloacae 08/31/201807/08/2023 Bacteremia due to methicilli n susceptible Staphylococcus aureus (MSSA) 08/28/2018 07/08/2023 07/08/2023 MSSA (methicillin susceptibl e Staphylococcus aureus) infection 08/28/2018 07/08/2023 07/08/2023 Altered mental status 08/04/2018 07/08/20232022 Diarrhea 08/04/2018 07/08/2023 07/08/2023 Encephalopathy 08/01/2018 07/08/2023 07/08/2023 Spinal stenosis, lumbar cydney on with neurogenic claudication 07/18/2017 11/27/2022 Overview: Added automatically from request for surgery [id number] Lumbar spondylosis 07/18/2017 Overview: Added automatically from request for surgery [id number] Chronic bilateral low back p ain with bilateral sciatica 04/28/2017 11/27/2022 Overview: Added automatically from request for surgery [id number] Obesity due to excess calori es, unspecified obesity severity E66.09 01/02/2017 11/27/2022 Last Assessment & Plan: Assessment: Body mass index is 40.42 kg/m . 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 Primary localized osteoarthrosis, lower leg 02/13/2010 12/11/2010 Anxiety state, unspecified 06/07/2005 0 12/11/2010 Depressive disorder, not elsewhere classified 06/07/20 05 12/11/2010 Carpal tunnel syndrome 06/07/200512/11 documented as of this encounter (statuses as of 07/27/2023) [facility] History of Past illness Narrative* Problem Noted Date Diagnosed Date Resolved Date Acute cholecystitis 08/21/2022 07/08/2023 07/08/20 23 Injury of kidney 08/21/2022 07/08/2023 07/08/2023 Abnormal mammogram 05/03/2022 Acute anoxic encephalopathy 06/01/2021 07/08/2023 07/08/2023 Hypokalemia 05/30/2021 05/31/2021 Hyponatremia 05/30/2021 05/31/2021 Delirium 05/28/2021 05/31/2021 Angioedema 05/19/2021 05/31/2021 Mild protein-calorie malnutrition 05/19/2021 04/03/2023 Grayson angina 05/18/2021 05/19/2021 Acute respiratory failure with hypoxia 05/18/2021 05/31/2021 Lymphadenopathy, generalized 05/18/2021 11/27/2022 Chronic tension-type headache, intractable 07/07/2019 11/27/2022 Intractable chronic migraine without aura and without status migrainosus 07/07/2019 11/27/2022 Last Assessment & Plan: Assessment: otc analgesics as needed Cervicalgia 07/07/2019 11/27/2022 Chronic daily headache 07/07/201911/27 History of lumbar fusion 03/17/201904/2023 Last Assessment & Plan: Assessment: h/o Acquired spondylolisthesis o f lumbosacral region 03/17/2019 11/27/2022 Lumbosacral stenosis 03/17/2019 023 Poor posture 03/17/2019 11/27/2022 Wound infection after surgery 11/24/2018 04/03/2023 Overview: Had sepsis and multiple admissions after lumbar burger 07/09 Had wound vac and IV antibiotics Infection due to Enterobacter cloacae 08/31/201807/08/2023 Bacteremia due to methicilli n susceptible Staphylococcus aureus (MSSA) 08/28/2018 07/08/2023 07/08/2023 MSSA (methicillin susceptibl e Staphylococcus aureus) infection 08/28/2018 07/08/2023 07/08/2023 Altered mental status 08/04/2018 07/08/20232022 Diarrhea 08/04/2018 07/08/2023 07/08/2023 Encephalopathy 08/01/2018 07/08/2023 07/08/2023 Spinal stenosis, lumbar cydney on with neurogenic claudication 07/18/2017 11/27/2022 Overview: Added automatically from request for surgery [id number] Lumbar spondylosis 07/18/2017 Overview: Added automatically from request for surgery [id number] Chronic bilateral low back p ain with bilateral sciatica 04/28/2017 11/27/2022 Overview: Added automatically from request for surgery [id number] Obesity due to excess calori es, unspecified obesity severity E66.09 01/02/2017 11/27/2022 Last Assessment & Plan: Assessment: Body mass index is 40.42 kg/m . 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 Primary localized osteoarthrosis, lower leg 02/13/2010 12/11/2010 Anxiety state, unspecified 06/07/2005 0 12/11/2010 Depressive disorder, not elsewhere classified 06/07/2012/11/2010 Carpal tunnel syndrome 06/07/200512/11 documented as of this encounter (statuses as of 07/27/2023) [facility] Miscellaneous Notes* Telephone Encounter - Gorge Melendrez LPN - 08/19/2022 1:33 PM EST Patient phones requesting refills as follows: Requested Prescriptions Pending Prescriptions Disp Refills allopurinol (ZYLOPRIM) 300 mg tablet [Pharmacy Med Name: Allopurinol 300 MG Oral Tablet] 90 tablet 3 Sig: TAKE 1 TABLET BY MOUTH ONCE DAILY TERENCE 04/22/22 NOV no upcoming appt Please review and advise. Gorge Melendrez LPN documented in this encounterA[facility]11-[facility]-2022 Miscellaneous Notes* Telephone Encounter - Talia Silver LPN - 08/12/2022 12:00 PM EST Call to patient. She was hospitalized in [facility] for acute cholecystitis and discharged 08/04/22. PCP has not seen her since Apr. Offered to schedule visit for her. Patient states that is very hard for her to get transportation to visits. She will talk to family and get back with us. She also has not set up to see Dr Gonzalez for follow up yet is going to do that today. (Ok to use a 40 minute hospital follow up spot for patient if she calls back as it has been awhile since she has seen Dr Lizama.) documented in this encounterA[facility]11-14-[facility]22 Miscellaneous Notes* Telephone Encounter - Chinyere Shea RN - 08/05/2022 9:36 AM EST Call to patient, no answer, left message confirming next appointment date and to call if any concerns or questions. Sravanthi Shea RN * Telephone Encounter - Chinyere Shea RN - 08/05/2022 9:29 AM EST DISCHARGE CALL BACK Today's date: August 05, 2022 Notified of Pt discharge by: MD Notification Patient discharged on 08/04/22 from [facility] to Home, self care Primary Cancer Diagnosis: Follicular Lymphoma Admitting Diagnosis: Acute cholecystitis status postcholecystectomy 08/02/2022 Discharge Summary/SBAR reviewed: Yes Handoff Discussed with Transitional 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: N/A Psychosocial Risk Factors: None If patient discharged to SNF/Rehab Facility, phone call completed to reinforce discharge instructions and follow up: N/A Call Disposition: Admission unrelated to cancer diagnosis/treatment Per Dr. Escudero, chemotherapy cancelled for this week and keep upcoming appointments as they are. Chinyere Shea RN documented in this encounterAcmc [facility] System11-10-2022 Instructions* Patient Instructions* Melba Escudero MD - 08/01/2022 2:29 PM EST Fact Sheet for Patients, Parents And Caregivers Emergency Use Authorization (EUA) of EVUSHELD (tixagevimab co-packaged with cilgavimab) for Coronavirus Disease 2019 (COVID-19) You are being given this Fact Sheet because your healthcare provider believes it is necessary to provide you with EVUSHELD (tixagevimab co-packaged with cilgavimab) for pre-exposure prophylaxis for prevention of coronavirus disease 2019 (COVID-19) caused by the SARS-CoV-2 virus. This Fact Sheet contains information to help you understand the potential risks and potential benefits of taking EVUSHELD, which you have received or may receive. The [place].S. Food and Drug Administration (FDA) has issued an Emergency Use Authorization (EUA) to makeEVUSHELD available during the COVID-19 pandemic (for more details about an EUA please see What is an Emergency Use Authorization? at the end of this document). EVUSHELD is not an FDA-approved medicine in the [place]. Read this Fact Sheet for information about EVUSHELD. Talk to your healthcare provider if you have any questions. It is your choice to receive or not receive EVUSHELD. What is COVID-19? COVID-19 is caused by a virus called a coronavirus. You can get COVID-19 through close contact withanother person who has the virus. COVID-19 illnesses have ranged from very mild (including some with no reported symptoms) to severe,including illness resulting in . While information so far suggests that most COVID-19 illness is mild, serious illness can happen and may cause some of your other medical conditions to become worse. Older people and people of all ages with severe, long-lasting (chronic) medical conditions likeheart disease, lung disease, and diabetes, for example, seem to be at higher risk of being hospitalized for COVID-19. What is EVUSHELD (tixagevimab co-packaged with cilgavimab)? EVUSHELD is an investigational medicine used in adults and adolescents (12 years of age and older who weigh at least 88 pounds [40 kg]) for pre-exposure prophylaxis for prevention of COVID-19 in persons who are: not currently infected with SARS-CoV-2 and who have not had recent known close contact with someonewho is infected with SARS-CoV-2 and Who have moderate to severe immune compromise due to a medical condition or have received immunosuppressive medicines or treatments and may not mount an adequate immune response to COVID-19 vaccination or For whom vaccination with any available COVID-19 vaccine, according to the approved or authorized schedule, is not recommended due to a history of severe adverse reaction to a COVID-19 vaccine(s) or COVID-19 vaccine ingredient(s). EVUSHELD is investigational because it is still being studied. There is limited information known about the safety and effectiveness of using EVUSHELD for pre- exposure prophylaxis for prevention of COVID-19. EVUSHELD is not authorized for post-exposure prophylaxis for prevention of COVID-19. The FDA has authorized the emergency use of EVUSHELD for pre-exposure prophylaxis for prevention ofCOVID-19 under an Emergency Use Authorization (EUA). What should I tell my healthcare provider before I receive EVUSHELD? Tell your healthcare provider if you: Have any allergies, including if you have had a severe allergic reaction to a COVID-19 vaccine Have low numbers of blood platelets (which help blood clotting), a bleeding disorder, or are takinganticoagulants (to prevent blood clots) Have had a heart attack or stroke, have other heart problems, or are at high- risk of cardiac (heart) events Are or plan to become Are a child Have any serious illness Are taking any medications (prescription, qhrb-tse-xpovgfv, vitamins, or herbal products) How will I receive EVUSHELD? EVUSHELD consists of two investigational medicines, tixagevimab and cilgavimab. You will receive 1 dose of EVUSHELD, consisting of 2 separate injections (tixagevimab and cilgavimab). EVUSHELD will be given to you by your healthcare provider as 2 intramuscular injections, given one after the other. Viruses can knife changer time (mutate) and develop into a slightly different form of the virus, called a variant. Based on what we know about current SARS-CoV-2 variants, you will need to receive additional doses of EVUSHELD every 6 months if ongoing protection is needed. Talk to your healthcare provider for more information. Who should generally not take EVUSHELD? Do not take EVUSHELD if you have had a severe allergic reaction to EVUSHELD. What are the important possible side effects of EVUSHELD? Possible side effects of EVUSHELD are: Allergic reactions. Allergic reactions can happen during and after injection of EVUSHELD and can sometimes be serious or life-threatening. You may have an increased risk of allergic reaction with EVUSHELD if you have had a severe allergic reaction to a COVID-19 vaccine. EVUSHELD contains polysorbate 80, an ingredient in some COVID-19 vaccines. Also, polysorbate 80 is similar to polyethylene glycol (PEG), an ingredient in other COVID-19 vaccines. Your healthcare provider may consult with a healthcare provider who specializes in allergy and immunology before giving you EVUSHELD if you have had a serious allergic reaction to a COVID-19 vaccine. Your healthcare provider will monitor you for allergic reactions during and for at least 1 hour after you receive EVUSHELD. Tell your healthcare provider right away if you get any of the following signs and symptoms of an allergic reaction during or after you receive EVUSHELD: trouble breathing or shortness of breath, hives, wheezing, chills, itching, tiredness or weakness, skin flushing, fast hea rt rate, sweating, chest pain or discomfort, muscle aches, nausea and vomiting, you feel lightheaded or faint, swelling of your face, lips, mouth and tongue, throat tightness. Cardiac (heart) events: Serious cardiac adverse events have happened, but were not common, in people who received EVUSHELD and also in people who did not receive EVUSHELD in the clinical trial studying pre-exposure prophylaxis for prevention of COVID-19. In people with risk factors for cardiac events (including a history of heart attack), more people who received EVUSHELD experienced serious cardiac events than people who did not receive EVUSHELD. It is not known if these events are related to EVUSHELD or underlying medical conditions. Contact your healthcare provider or get medical help right away if you get any symptoms of cardiac events, including pain, pressure, or discomfort in the chest, arms, neck, back, stomach or jaw, as well as shortness of breath, feeling tired or weak (fatigue), feeling sick (nausea), or swelling in your ankles or lower legs. The side effects of getting any medicine by intramuscular injection may include pain, bruising of the skin, soreness, swelling, and possible bleeding or infection at the injection site. These are not all the possible side effects of EVUSHELD. Not a lot of people have been given EVUSHELD. Serious and unexpected side effects may happen. EVUSHELD is still being studied so it is possible that all of the risks are not known at this time. It is possible that EVUSHELD may reduce your body s immune response to a COVID- 19 vaccine. If you have received a COVID-19 vaccine, you should wait to receive EVUSHELD until at least 2 weeks after COVID-19 vaccination. What other important information do I need to know when receiving EVUSHELD? Risk of COVID-19 caused by certain SARS-CoV-2 variants: Viruses can knife changer time (mutate) and develop into a slightly different form of the virus, called a variant. EVUSHELD may not be effective at preventing COVID-19 caused by certain SARS-CoV-2 variants. If you are exposed to these variants, your chance of developing COVID-19 is higher than from other variants. Tell your healthcare providerright away, and test for COVID-19, if you develop any symptoms of COVID- 19, including: fever or chills, cough, shortness of breath or difficulty breathing, feeling tired (fatigue), muscle or body aches, headache, sore throat, new loss of taste or smell, congestion or runny nose, nausea or vomiting, diarrhea. If you develop COVID-19, your healthcare provider may recommend one of the available COVID-19 treatments. For more information about the symptoms of COVID-19, go to https://www.cdc.gov/coronavirus/2019-ncov/symptoms-testing/symptoms. What other prevention choices are there? Vaccines to prevent COVID-19 are approved or available under Emergency Use Authorization. Use of EVUSHELD does not replace vaccination against COVID-19. For more information about other medicines authorized for treatment or prevention of COVID-19 go to https://www.fda.gov/wrctefvps-fktyfprnbcja-rrp- response/zrv-qnrsq-qavalicvje-qrw-tjmmca-ekdstqfei/ybsoawjtf-ebt-cflesftrilmlv for more information. It is your choice to receive or not receive EVUSHELD. Should you decide not to receive EVUSHELD, itwill not change your standard medical care. EVUSHELD is not authorized for post-exposure prophylaxis of COVID-19. What if I am or ? If you are or , discuss your options and specific situation with your healthcare provider. How do I report side effects with EVUSHELD? Contact your healthcare provider if you have any side effects that bother you or do not go away. Report side effects to [employer] at www.fda.gov/medwatch or call 6-064-WRA-7318 or call [employer] . Additional Information If you have questions, visit the website or call the telephone number provided below. Website Telephone number http://www.[employer] How can I learn more about COVID-19? Ask your healthcare provider. Visit https://www.cdc.gov/COVID19 Contact your local or state public health department. What is an Emergency Use Authorization? The [place] FDA has made EVUSHELD (tixagevimab co-packaged with cilgavimab) available under an emergency access mechanism called an Emergency Use Authorization EUA. The EUA is supported by a [place] of Health and Human Service (HHS) declaration that circumstances exist to justify the emergency use of drugs and biological products during the COVID-19 pandemic. EVUSHELD for pre-exposure prophylaxis for prevention of coronavirus disease 2019 (COVID-19) caused by the SARS-CoV-2 virus has not undergone the same type of review as an FDA-approved product. In issuing an EUA under the COVID-19 public health emergency, the FDA has determined, among other things, that based on the total amount of scientific evidence available including data from adequate and well-controlled clinical trials, if available, it is reasonable to believe that the product may be effective for diagnosing, treating, or preventing COVID-19, or a serious or life-threatening disease or condition caused by COVID-19; that the known and potential benefits of the product, when used to diagnose, treat, or prevent such disease or condition, outweigh the known and potential risks of such product; and that there are no adequate, approved and available alternatives. All of these criteria must be met to allow for the product to be used in the treatment of patients during the COVID-19 pandemic. The EUA for EVUSHELD is in effect for the duration of the COVID-19 declaration justifying emergency use of EVUSHELD, unless terminated or revoked (after which EVUSHELD may no longer be used under the EUA). What are the ingredients in EVUSHELD? Each EVUSHELD co-packaged carton contains 2 vials. Active ingredient: Each of the vials contains either: tixagevimab or cilgavimab Inactive ingredients: Each vial contains L- histidine, L- histidine hydrochloride monohydrate, polysorbate 80, sucrose, water. Distributed by: [employer], [place], [place] Manufactured for: [employer] [place], [place] [employer] 2021. All rightsreserved. documented in this encounterAcmc Healthcare System11-10-2022 Miscellaneous Notes* Telephone Encounter - Melba Escudero MD - 08/01/2022 2:28 PM EST Evusheld (tixagevimab/cilgavimab) Eligibility and Patient Discussion [facility] Formulary Restriction Criteria: Outpatient adults and pediatrics 12 years and older and > 40 kg with ALL of the following: [x] COVID test scheduled: Yes Date: TBD, type of test:Laboratory collected [] Patient has not been exposed to a SARS-COV-2 positive individual ([facility] information on COVID exposure link) [x] Patient is not exhibiting symptoms of SARS-COV-2 infection [] Patient is able to come in to the clinic for the Evusheld injection [x] Meeting at least one criteria below: [x] Active treatment for solid tumor and hematologic malignancies [] Receipt of solid-organ transplant and taking immunosuppressive therapy [] Receipt of chimeric antigen receptor (CAR)-T-cell or hematopoietic stem cell transplant (within 2 years of transplantation or taking immunosuppressive therapy) [] Moderate or severe primary immunodeficiency (e.g. DiGeorge syndrome, Wiskott- Aldrick syndrome) [] Advanced or untreated HIV infection (people with HIV and CD4 cell counts < 200/mm3, history of an AIDS-defining illness without immune reconstitution, or clinical manifestations of symptomatic HIV) [x] Active treatment with high-dose corticosteroids (i.e., >20 mg prednisone or equivalent per day when administered for > 2 weeks), alkylating agents, antimetabolites, transplant-related immunosuppressive drugs, cancer chemotherapeutic agents classified as severely immunosuppressive, and other biologic agents that are significantly immunosuppressive (e.g., B-cell depleting agents, cyclophosphamide) [] Other moderate to severely immunocompromising condition: Rituxan & Bendamustine [x] Patients for whom vaccination with any COVID-19 vaccine, according to the approved or authorized schedule, is not recommended due to a history of severe adverse reaction (e.g. severe allergic reaction) to a COVID-19 vaccine(s) and/or COVID-19 vaccine components Criteria above are met: Yes Patient received COVID vaccine: No Laboratory and comorbidity assessment: Platelet Count (k/uL) Date Value 07/23/2022 94 (L) 06/27/2022 138 (L) Last platelet count greater than 20 k/uL: Yes. If on warfarin, most recent INR should be within therapeutic range: not applicable Cardiovascular disease history: No. I have discussed the use of the investigational therapeutic, Evusheld (tixagevimab/cilgevimab), forpre-exposure prophylaxis of COVID-19 infection and its use under Emergency Use Authorization with the patient. The patient was informed that tixagevimab/cilgevimab is not an FDA approved drug and that it is authorized for use under this Emergency Use Authorization. The patient was also informed of the significant known benefits and potential risks of tixagevimab/cilgevimab, and the extent to which such potential risks and benefits are unknown. The patient was informed that there is mandatory reporting of all medication errors and serious adverse events potentially related to tixagevimab/cilgevimab treatment within 7 calendar days from the onset of the event. The discussion included alternatives to receiving tixagevimab/cilgevimab, including clinical trials, and potential the risks and benefits of those alternatives. The patient was provided electronically with the Fact Sheet for Patients, Parentsand Caregivers. The patient stated understanding and gave verbal consent to proceeding with tixagevimab/cilgevimab treatment. Melba Escudero MD August 01, 2022 2:31 PM documented in this encounterAcmc Healthcare System11-09-2022 Miscellaneous Notes* Telephone Encounter - Chinyere Shea RN - 07/31/2022 10:06 AM EST See phone note from yesterday. Dr. Escudero is aware. Call to patient and aware that her upcoming appointments have been cancelled. We will call when sheis discharged and reschedule as appropriate. Sravanthi Shea RN * Telephone Encounter - Sera Benoit Pss - 07/31/2022 9:56 AM EST Patient is calling to update provider that she was admitted to [facility] yesterday for gallbladder issuesand is scheduled for gallbladder removal on Friday due to holding eliquis. Please advise patient onhow she will proceed with future appointments, documented in this encounterAcmc Healthcare System11-08-2022 Miscellaneous Notes* Telephone Encounter - Loli Gomez Pss - 07/30/2022 3:44 PM EST Completed. * Telephone Encounter - Chinyere Shea RN - 07/30/2022 2:31 PM EST Please cancel appointments on 08/02/22 and next weeks treatment 08/05 and 08/06. Sravanthi Shea RN * Telephone Encounter - Melba Escudero MD - 07/30/2022 2:23 PM EST Thank you for the update. We will follow her up after she is discharged home from the hospital. We will hold her chemotherapy until she recovers from surgery. Melba Escudero MD * Telephone Encounter - Chinyere Shea RN - 07/30/2022 1:49 PM EST Patient to [facility] ER this am for Epigastric pain lasting for 12 hours. Patient to be admitted Med Surg. This nurse will follow for discharge date for follow up with this office. Appointments for this Friday and next week's treatment will need rescheduled. Sravanthi Shea RN Per Admission H&P: Date of Admission: 07/30/22 Date of Service: 07/30/22 Chief Complaint: epigastric pain. HPI Narrative LISA UP, is a 76 F with a PMH as outlined who presents via the ED with a complaint of epigastric pain. Her symptoms had been going on for about 12 hours and was constant, with no fever, chills, cough or any other symptoms. Review of systems was otherwise negative. She is on chemotherapy for NHL. Vitals were BP of 181/86, OH of 77 and RR of 15; she is on room air and saturating at 96%. CBC shwoed hb of 12.7, wbc of 4.4 and platelets of 114. Chemistry was essentially WNL. CT abdomen and pelvisshowed multiple gallstones with gallbladder wall thickening and pericholecystic fluid. Gallbladder USG showed multiple gallstones with gallbladder wall thickening and pericholecystic fluid. She is being admitted to be managed for acute cholecystitis. Vikki Stanley MD Per Surgical Consult: PLAN: Due to patient's Eliquis would not do surgery until Friday. Patient last took her Eliquis last night. Patient is having increased pain right upper quadrant/epigastric which is only tolerable with continual pain meds. Dr. Almanzar her radiologist was agreeable to put a cholecystostomy tube in which should improve patient's discomfort until were able to let the Eliquis wear off for surgery. Patient and her daughter were agreeable with plan. IV Zosyn due to acute cholecystitis. N.p.o. today-okay for sips after cholecystostomy placed. May give clear liquids tomorrow Discussed with patient she would not be having her treatment for lymphoma which last 1 was 4 weeks ago due to that infection with cholecystitis as well as then surgery to allow for healing. Patient does see Dr. Kena Gonzalez M.D. documented in this encounterAcmc Healthcare System11-04-2022 Miscellaneous Notes* Telephone Encounter - DOREEN Roman - 07/26/2022 4:56 PM EDT Spoke with patient scheduled for 08/02 * Telephone Encounter - Melba Escudero MD - 07/26/2022 4:14 PM EDT I WILL NEED TO SEE HER NEXT WEEK BEFORE CHEMOTHERAPY Melba Escudero MD * Telephone Encounter - Chinyere Shea RN - 07/26/2022 4:04 PM EDT Spoke with Dr. Escudero, sweating is probably from patient's lymphoma. Patient needs to rest, push fluids and monitor temperature. Patient to go to ER if any drainage from back incision, fever or other concerns. Call to patient, aware of above. Also, reviewed the when to call sheet, after hours number if needed. Patient states understanding and will have daughter check her back incision when she comes over tomorrow. Disposition: per Dr. Escudero, patient directed to: Manage at home. Provided instructions and will call back. Chinyere Shea RN * Telephone Encounter - Chinyere Shea RN - 07/26/2022 1:40 PM EDT TOXICITY CHECK SYMPTOM ASSESSMENT The patient is on Rituxan/Bendamustine Headache: Yes daily, this is not a new issue for her. States she had headaches prior to starting treatment. Uses Tylenol and helps. Visual Changes: No Dizziness: No Do you have any periods of confusion? No Mood changes: No Mouth or throat pain: No Appetite: decreased appetite, states she has 1 good meal daily and a protein drink. She knows that she needs to eat and is trying. Her daughter brings her plates of food that all she needs to do is heat up in the microwave. She is trying to push fluids, drinks 32oz water daily and sometimes clear pop but today she is drinking some Gatorade too b/c of diarrhea. Taste changes: No Nausea: No Vomiting: No Heartburn: No. Weight gain/loss: Unable to assess Episodes of palpitations/chest discomfort/pressure/pain No Shortness of breath: No Cough: No Diarrhea: yes, How many times in the last 24 hours: 3 Start date: yesterday States she took Imodium after the last episode 2 hours ago and none since. Constipation: no Bladder/Urinary Changes: no changes Pain: my usual pain that I have denies anything new Fever: No, denies fever. Has been checking and runs between 98 and 99 something Chills: No Cold sensitivity: No Numbness/weakness:States she has been feeling very weak for about 3 days. States she is sweating atnight and gets and sheets are wet , it smells awful too Edema: No Skin changes: bumps on my chest that have been there for a few months Itching: Yes all over States for a few months Yellowing of skin or eyes: No Musculoskeletal/joint changes/issues No Bleeding issues: No Activity Level (0-100%): I feel very weak Patient is able to care for herself and complete ADL's She get up in the AM around 8am, and then she will be back in bed around 3 or 4pm. She watches TV and naps. Do you need to take naps? Yes; Do you wake up feeling rested? No Does the patient need interventions or same day appointment:will discuss above with Dr. Escudero, patient aware that I will call back with further instructions. Reinforced CURRENT treatment education based on current and anticipated symptoms. Discussed port/line care and patient verbalizes understanding: Not Applicable Patient instructed to contact office or after hours Hematology/Oncology fellow for: temperature ? 100.4; questions or concerns. Patient verbalized understanding of when to seek medical attention and after hours number protocol. Chinyere Shea RN documented in this encounterAcmc Healthcare System11-01-2022 History of Present illness Narrative* Melba Escudero MD - 07/23/2022 10:23 AM EDT PATIENT NAME: Lisa Up. CLINIC NO: [id number]. ATTENDING PHYSICIAN: Melba Escudero MD. DATE OF SERVICE: 07/23/2022. 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 She has generalized adenopathy involving her supraclavicular, bilateral axillary, and subcarinal regions. 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 She is scheduled for removal of her prosthesis because of recurrent infection. She has unexplained weight loss, or increased fatigue. She has multiple transfusions in the past from her surgery. She denied history of hepatitis or HIV infection. Recent evaluation for her symptoms and axillary adenopathy confirm her diagnosis of stage IV follicular lymphoma. FINAL DIAGNOSIS A. 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 - See comment. Flow cytometric analysis of the bone marrow aspirate reveals that 15% of total events have the BH43kes side scatter properties of lymphocytes. Interpretation: The lymphocytes are composed of a mixture of T cells (58%; CD4:CD8 ratio = 1.15), NK cells (4%) andB cells (34%). The majority of the B cells display an abnormal immunophenotype, and are positive for CD19, CD20 (bright), CD45 and kappa surface light chain. The B cells are negative for CD5, CD10 and the the remaining markers tested. CD200 could not be interpreted on the abnormal B cells due to nonspecific staining. Granulocytic elements are 64% of the events. Blasts are not increased. The findings are diagnostic of involvement by a B-cell lymphoproliferative disorder. Current treatment: Rituximab -Bendamustine Interim history: She had her first cycle of chemotherapy last month after port placement. She has chronic lower back pain and she also complained of chills after chemotherapy. She did not take her temperature after treatment. She has no early satiety, itching or jaundice. She has no pain under her arms, and her axillary adenopathy has improved. The incision on her lower back is healed with no sign of infection. Denies significant nausea vomiting or diarrhea after chemotherapy. She noticed no bleeding or bruising. All medications & allergies updated and reviewed by me. REVIEW OF SYSTEMS: CONSTITUTIONAL: No fevers, chills, nightsweats, unintended weight loss HEENT: Denies frequent or severe heaches, nasal congestion/sinus symptoms, problematic allergy problems. EYES: No diplopia or blurry vision. CARDIOVASCULAR: No chest pain, dyspnea, palpitations, orthopnea, PND, ankle edema. PULM: No dyspnea, unexplained cough. GI: No dysphagia/odynophagia, problematic reflux, constipation, diarrhea, changes in stool habits, hematochezia, melena. : No new urinary complaints, including dysuria, gross hematuria or pyuria. NEURO: No new balance problems, peripheral weakness/paresthesias or numbness of concern. MUSC-SKEL: No new joint pain, swelling, or erythema. + Chronic lower back pain from nonhealing wound. PSY: No concerns regarding depression, anxiety or panic. INTEGUMENTARY: No new skin changes (rash, new or changing mole, new growth) PHYSICAL EXAMINATION: 75-year-old moderately obese female in no acute distress Performance Status:80% BP 110/61 Pulse 79 Temp 98.6 Wt 216 lb 8 oz (98.2kg) SpO2 96% HEENT: Head is normocephalic, atraumatic. Sclerae white, conjunctivae pink. PEERL. EOMs are intact.Oropharynx is benign. LYMPHATICS: There is no palpable adenopathy in supraclavicular region, axillary or inguinal adenopathy LUNGS: Lungs are clear to percussion with expiratory wheezing. HEART: Heart is normal without murmurs, gallops, or rubs. ABDOMEN: Obese, soft and nontender without organomegaly. No masses can be palpated. BACK: Healed incision in the lumbar region. No erythema or tenderness. EXTREMITIES: Are without edema. No petechiae NEUROLOGIC: Exam is physiologic LABS: Component Latest Ref Rng & Units 07/23/2022 WBC 3.70 - 11.00 k/uL 3.29 (L) RBC 3.90 - 5.20 m/uL 4.10 Hemoglobin 11.5 - 15.5 g/dL 12.6 Hematocrit 36.0 - 46.0 % 38.3 MCV 80.0 - 100.0 fL 93.4 MCH 26.0 - 34.0 pg 30.7 MCHC 30.5 - 36.0 g/dL 32.9 RDW-CV 11.5 - 15.0 % 13.9 Platelet Count 150 - 400 k/uL 94 (L) MPV 9.0 - 12.7 fL 9.5 Neut% % 71.5 Abs Neut (ANC) 1.45 - 7.50 k/uL 2.35 Lymph% % 11.2 Abs Lymph 1.00 - 4.00 k/uL 0.37 (L) [place]% % 7.0 Abs [place] <0.87 k/uL 0.23 Eosin% % 9.1 Abs Eosin <0.46 k/uL 0.30 Baso% % 0.6 Abs Baso <0.11 k/uL <0.03 Immature Gran % % 0.6 IMMATURE GRANS (ABS) <0.10 k/uL <0.03 NRBC /100 WBC 0.0 Absolute nRBC <0.01 k/uL <0.01 DTYPE Auto ASSESSMENT/PLAN: 75-year-old lady with a history of low-grade follicular lymphoma. 1) stage IV low-grade (1-2), follicular non-Hodgkin lymphoma -Progression of disease noted with constitutional symptom and thrombocytopenia prior to treatment -She did well with her first cycle of chemotherapy except for leukopenia and thrombocytopenia. -Clinical response noted with decreased axillary adenopathy Plan: -Defer treatment for 1 week and repeat CBC -Continue subsequent cycle of rituximab -Bendamustine (70mg/m2) day 1 and 2 every 28 days with dosereduction -Repeat CBC, CMP, LDH, uric acid office visit in 5 weeks. -Repeat CT scan of chest abdomen pelvis after 3rd cycle of chemotherapy -Monitor temperature more frequently because of chills and possible fever after chemotherapy. I spent 30 minutes in the visit, with more than 50% of the total [id number] time of the visit in counseling / coordination of care. Portions of this documentation were copied and pasted from previous office visit notes in order to provide a cohesive continuity of the history. The note has been reviewed and edited and updated as necessary. Melba Escudero MD Cc: Dr. Sylvia Lizama documented in this encounterAcmc Healthcare System11-01-2022 Instructions* Patient Instructions* Melba Escudero MD - 07/23/2022 10:17 AM EDT Check temperature when you have chills Call for Temp > 101 or 100.4 x 2 (1 hour apart) documented in this encounterAcmc Healthcare System10-24-2022 History of Present illness Narrative* LUZ MARIA Murray - 07/15/2022 11:06 AM EDT PSYCHOSOCIAL ASSESSMENT Date of Service: July 15, 2022 Lisa Up is a 76 year old female being seen for initial social work assessment. Diagnosis: 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) New Primary Oncologist: Melba Escudero MD Radiation Oncologist: DHEERAJ Goals of Care: Quality of life, disease management Today's visit includes: self/patient Family History of Cancer: Father SUPPORT NETWORK: Marital status: Parent(s): Mother and father are Child/Children: Yes. patient care technician arrangements needed: No Siblings: Yes Grandchild(boo): > 5 Home Health Provider: No Community Services: No Viviane Identified: Yes Hoahaoism/Spirituality: Shinto Are these practices or beliefs that may affect or influence treatment? 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 No Financial Distress: No [place]: No FOOD INSECURITY Within the past year, have you worried about how you would buy or obtain food? No LIVING ARRANGEMENTS: Type: House- independent ranch Resides with: Alone FUNCTIONAL STATUS: Cognitive limitations: none Physical limitations: fatigue, weakness Language barrier: No Hearing Impaired: No Speech Impaired: No Visual Impairments: No Special considerations/accommodations needed: No HEALTH LITERACY: Do you have difficulty understanding medical instructions or other written materials you receive from you doctor or pharmacy? No Do have difficulty filling out medical forms by yourself? No The following interventions were put into place: NA MEDICATION ADHERENCE: Within the past 2 weeks, have you had difficulty remembering to take your medicine? No Within the past 2 weeks, did you ever miss taking your medications for reasons other than forgetting? No The following interventions were put into place: NA MENTAL HEALTH HISTORY: No History of combat/trauma: No Substance Use and Treatment History: denied History of Abuse: No Issues with: Sleep:No Eating:Yes, some difficulty this past week due to new medication regimen. Pt reports better this week. Exercising: Yes, decreased energy level some days and better others per pt. Stress Management: No ADVANCE DIRECTIVES/LEGAL DOCUMENTS: Living Will: No and provided Living Will information for patient to review Scanned into [employer]: No Health Care Durable Power of Opener: No and provided POA information for patient to review Scanned into EPIC: No Guardianship: NA Scanned into EPIC:NA Reasons Advanced Directives were not Addressed: NA COPING STATUS: Coping Strengths: supportive relationships with immediate family and with friends spirituality successful managing past crises hopefulness self advocate strong problem-solving skills ability to plan able to follow direction consistently over time able to communicate effectively Current affect/mood: appropriate and fatigued History of Loss: Yes, parents Adjustment to diagnosis: reflecting understanding and responding appropriately BARRIERS/CARE CHALLENGES: NA Are barriers/care challenges identified likely to have an impact on the patient's quality of life during treatment? 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 She reports she is doing well aside from some side effects from her medications. Pt reports she has been in touch with the oncology team and these symptoms have been managedwell. SW oriented pt to SW role and discussed resources/assistance available. Pt reports no concerns at this time and agreed to reach out to SW if needs arise. Pt reports she is very well supported by her family and friends and reports she is hopeful that she will be done with treatments at the end of the year. Psychosocial Risk Criteria If positive for one or more of the following risk criteria, follow up every 30 days Age: >70 Mental Health: NA Practical Needs: N/A PLAN: SW to follow pt at upcoming appointments and remain in contact with pt throughout treatment to address any psychosocial concerns if needed. Follow up appointment with SW in: IESHA Khan documented in this encounterAcmc Healthcare System10-17-2022 Miscellaneous Notes* Telephone Encounter - Chinyere Shea RN - 07/08/2022 3:42 PM EDT TOXICITY CHECK SYMPTOM ASSESSMENT The patient is on Rituxan/Bendamustine Headache: No Visual Changes: No Dizziness: No Do you have any periods of confusion? No Mood changes: No Mouth or throat pain: No Appetite: decreased appetite, eating at least 1 good meal daily. Pushing fluids, has cup coffee in the am then just water all day Taste changes: No Nausea: Yes using compazine Vomiting: No Heartburn: No. Weight gain/loss: Unable to assess Episodes of palpitations/chest discomfort/pressure/pain No Shortness of breath: No Cough: No Diarrhea: no Constipation: last BM 2 days ago, states she will use her 'colon cleanse pills and they have been working. used a few days ago, good BM and no diarrhea Bladder/Urinary Changes: None Pain: No=0 (pain 0 on a scale of 0-10). Nothing new or increasing Fever: No Chills: No Cold sensitivity: No Numbness/weakness: No Edema: No Skin changes: No Itching: No Yellowing of skin or eyes: Unable to assess Musculoskeletal/joint changes/issues No Bleeding issues: No Activity Level (0-100%): decreased. Good days and bad days. I will feel really tired one day and then the next day is not so bad Do you need to take naps? Yes; Do you wake up feeling rested? Yes, sometimes Does the patient need interventions or same day appointment:No Reinforced CURRENT treatment education based on current and anticipated symptoms. Discussed port/line care and patient verbalizes understanding: Not Applicable Patient instructed to contact office or after hours Hematology/Oncology fellow for: temperature ? 100.4; questions or concerns. Patient verbalized understanding of when to seek medical attention and after hours number protocol. Chinyere Shea RN documented in this encounterAcmc Healthcare System10-11-2022 Miscellaneous Notes* Telephone Encounter - Chinyere Shea RN - 07/02/2022 1:07 PM EDT Call to patient, states no more diarrhea since phone call yesterday. Did not need to take any more Imodium. States she ate a good lunch and has been pushing fluids. Denies any more issues with chest pressure. States this is the same discomfort since diagnosis of cancer and some days it is worse. She uses Tylenol but doesn't help much. Has [place] but only uses on occasion. Denies any other new or concerning issues. Instructed to call back any if she does. Sravanthi Shea RN * Telephone Encounter - Chinyere Shea RN - 07/01/2022 1:47 PM EDT Below was discussed with patient. Will call again tomorrow for update. Sravanthi Shea RN * Telephone Encounter - Melba Escudero MD - 07/01/2022 1:44 PM EDT Take Imodium as needed for diarrhea and BRAT diet. Drink plenty of fluid. Call if she has fever. Melba Escudero MD * Telephone Encounter - Chinyere Shea RN - 07/01/2022 12:38 PM EDT CYCLE 1/DAY 1 POST TREATMENT CALL Patient returned call. SYMPTOM ASSESSMENT Neuro: None CV/Resp: Patient states had some upper chest pressure but states that this is the same as what she has experienced before and area where she has lymphoma. States it was only last pm and none this am. Deniesshortness of breath. Reviewed concerning symptoms, new symptoms that she would need to call or go to the ED for. Patient states understanding. GI/: Appetite: decreased appetite, I don't feel like eating anything I had a banana this am but I can't remember what I ate yesterday Nausea yes, took compazine last pm and this am with good results, no vomiting, Had constipation for a few days, took colon cleanse pill x1 (she has always used this for constipation) and then she started with diarrhea last pm she did not take anything last pm for diarrhea, has 2-3 episodes last pm/during the night and 3-4 this am, she took some diarrhea medication this am. She is not sure of the name of medication but advised to make sure it is Imodium or Loperamide. She will check and call her daughter to pick some up if not. Reviewed dosing with patient. Patient states understanding. Encouraged her to push fluids and bland diet this am and reviewed suggestions. She is not sure amount of fluid intake she has had but has had coffee this am, water and now drinking decaffeinated clear pop Encouraged protein shakes to supplement her diet, hold off until after diarrhea resolved if they contain diary. Patient states understanding. Integument: None Activity: Activity Level (0-100%): decreased, taking naps and feels rested after Pain: No=0 (pain 0 on a scale of 0-10). Fever: No Chills: No Any new referrals needed? No Reinforced CURRENT treatment education based on current and anticipated symptoms. Discussed port/line care and patient verbalizes understanding: Not Applicable Patient instructed to contact office or after hours Hematology/Oncology fellow for: temperature ? 100.4; questions or concerns. Patient verbalized understanding of when to seek medical attention and after hours number protocol. Patient aware that I will call again tomorrow to check on diarrhea symptoms. Chinyere Shea RN * Telephone Encounter - Chinyere Shea RN - 07/01/2022 10:20 AM EDT CYCLE 1/DAY 1 POST TREATMENT CALL Today's date: July 01, 2022 Treatment Regimen: Rituxan D1/Bendamustine D1, D2 C1D1 Date: 06/27/2022 Called patient to follow-up on symptom management. No answer, message left to call me back and phone/contact number provided. Chinyere Shea RN documented in this encounterAcmc Healthcare System10-06-2022 Miscellaneous Notes* Telephone Encounter - Melba Escudero MD - 06/27/2022 1:11 PM EDT Patient's request for medication is as follows Requested Prescriptions Signed Prescriptions Disp Refills ZOLMitriptan (ZOMIG) 5 mg tablet 3 tablet 0 Sig: Take 1 tablet by mouth as needed. Authorizing Provider: MELBA ESCUDERO Order entered - please phone pharmacy and notify patient. Melba Escudero MD documented in this encounterAcmc Healthcare System10-06-2022 Miscellaneous Notes* Telephone Encounter - Melba Escudero MD - 06/27/2022 12:23 PM EDT Is this a throbbing headache like migraine or cluster headaches? Can she try Zomig 5 mg daily as needed instead and stop hydralazine? Continue [place] as needed for pain or headaches. Continue Neurontin. Melba Escudero MD * Telephone Encounter - Lou Plascencia RN - 06/27/2022 11:55 AM EDT Pt had Ov with Dr. Quintero and was advised to stop taking the Hydralazine. She stated that she started getting awful headaches so is currently taking 1 25mg tablet in the mornings. OK for her to continue this? Her BP was 110/48 upon arrival this morning but has gradually increased throughout the day. She states her headaches become pretty severe when she stops taking the med altogether. Please advise. 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 Per Dr. Escudero's most recent OV note: HPI: 76-year-old female with history of swelling in her neck and chest tightness who presented withan abnormal CT scan of the neck and chest. She has generalized adenopathy involving her supraclavicular, bilateral axillary, and subcarinal regions. 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 She is scheduled for removal of her prosthesis because of recurrent infection. She denied history of fever, chills or night sweat. She has unexplained weight loss, or increased fatigue. She has multiple transfusions in the past from her surgery. She denied history of hepatitis or HIV infection. She had a COVID vaccine last year and subsequently had an severe anaphylactic reaction. I for14 min. Interim history: She has not started allopurinol. She is getting orthostatic symptoms--on 2 blood pressure medications. No constitutional symptoms of recurring fever, night sweats. Had pneumonia vaccine and flu vaccine. PMH, medications and allergies personally reviewed by me today. Any changes documented in appropriate section. PHYSICAL EXAMINATION: 75-year-old moderately obese female in no acute distress Performance Status:80% BP 115/50 Pulse 65 Temp (Src) 98 (Temporal) Wt 221 lb 8 oz (100.5kg) HEENT: Head is normocephalic, atraumatic. Sclerae white, conjunctivae pink. PEERL. EOMs are intact.Oropharynx is benign. LYMPHATICS: There is no palpable adenopathy in supraclavicular region, + enlarged axillary adenopathy Left (largest 4 x 3 cm), + right axillary neuropathy + small cervical lymph nodes are palpable. Stable. LUNGS: Sounds are diminished throughout. Expiratory wheezes. HEART: Rhythm is regular. ABDOMEN: Obese, soft and nontender without organomegaly. No masses can be palpated. EXTREMITIES: Are without edema. LABS: Component Latest Ref Rng & Units 06/19/2022 WBC 3.70 - 11.00 k/uL 5.34 RBC 3.90 - 5.20 m/uL 4.04 Hemoglobin 11.5 - 15.5 g/dL 12.5 Hematocrit 36.0 - 46.0 % 38.0 MCV 80.0 - 100.0 fL 94.1 MCH 26.0 - 34.0 pg 30.9 MCHC 30.5 - 36.0 g/dL 32.9 RDW-CV 11.5 - 15.0 % 13.1 Platelet Count 150 - 400 k/uL 122 (L) MPV 9.0 - 12.7 fL 9.7 Neut% % 51.8 Abs Neut (ANC) 1.45 - 7.50 k/uL 2.77 Lymph% % 34.1 Abs Lymph 1.00 - 4.00 k/uL 1.82 [place]% % 8.1 Abs [place] <0.87 k/uL 0.43 Eosin% % 5.2 Abs Eosin <0.46 k/uL 0.28 Baso% % 0.4 Abs Baso <0.11 k/uL <0.03 Immature Gran % % 0.4 IMMATURE GRANS (ABS) <0.10 k/uL <0.03 NRBC /100 WBC 0.0 Absolute nRBC <0.01 k/uL <0.01 DTYPE Auto Protein, Total 6.3 - 8.0 g/dL 6.4 Albumin 3.9 - 4.9 g/dL 4.0 Calcium 8.5 - 10.2 mg/dL 9.7 Bilirubin, Total 0.2 - 1.3 mg/dL 0.3 Alkaline Phosphatase 34 - 123 U/L 68 AST 13 - 35 U/L 23 ALT 7 - 38 U/L 5 (L) Glucose 74 - 99 mg/dL 110 (H) BUN 7 - 21 mg/dL 18 Creatinine 0.58 - 0.96 mg/dL 0.80 Sodium 136 - 144 mmol/L 139 Potassium 3.7 - 5.1 mmol/L 4.1 Chloride 97 - 105 mmol/L 106 (H) CO2 22 - 30 mmol/L 25 Anion Gap 9 - 18 mmol/L 8 (L) eGFR >=60 mL/min/1.73m 76 LD 135 - 214 U/L 201 Uric Acid 2.5 - 6.6 mg/dL 7.8 (H) FINAL DIAGNOSIS A. 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 - See comment. Flow cytometric analysis of the bone marrow aspirate reveals that 15% of total events have the IF46lyy side scatter properties of lymphocytes. Interpretation: The lymphocytes are composed of a mixture of T cells (58%; CD4:CD8 ratio = 1.15), NK cells (4%) andB cells (34%). The majority of the B cells display an abnormal immunophenotype, and are positive for CD19, CD20 (bright), CD45 and kappa surface light chain. The B cells are negative for CD5, CD10 and the the remaining markers tested. CD200 could not be interpreted on the abnormal B cells due to nonspecific staining. Granulocytic elements are 64% of the events. Blasts are not increased. The findings are diagnostic of involvement by a B-cell lymphoproliferative disorder. IMAGING: CT Chest Comparison: 10/30/2021 IMPRESSION: Worsening adenopathy in the chest. Primarily in the axillary regions CT abdomen pelvis: COMPARISON: 10/30/2021 and 05/16/21 IMPRESSION: Abdominal and pelvic adenopathy is stable or slightly improved Stable cystic lesions in the pancreas. These could be further evaluated with pancreas/biliary MRI. Cholelithiasis ASSESSMENT/PLAN: 75-year-old lady with a history of low-grade follicular lymphoma. Clinical stage 3A with multiple lymph node in her neck and abdomen and axilla. She is minimal progression of disease on exam today and she is asymptomatic from her lymphoma. 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 Uric acid is elevated today. -Although LDH is normal, she is at risk for tumor lysis with first infusion of rituximab. She is also having symptoms of orthostasis. Plan: -Hold hydralazine. -Delay treatment start a week. -Start allopurinol daily beginning today. -Rx for Emla sent. -Return next week for CBC/CMP/LDH/uric acid and straight back to begin Bendamustine and rituximab. Portions of this documentation were copied and pasted from previous office visit notes in order to provide a cohesive continuity of the history. The note has been reviewed and edited and updated as necessary. During this patient visit I have spent approximately 20 minutes out of 25 in counseling regarding treatment options, medications, and test results and coordinating care. César Quintero DO Cc: Dr. Sylvia Crowder documented in this encounterAcmc Healthcare System09-20-2022 History of Present illness Narrative* Reta Hollis LPN - 06/11/2022 10:43 AM EDT Patient here for prevnar 20 and flu high dose vaccine. Tolerated injection well. documented in this encounterAcmc Healthcare System09-19-2022 History of Present illness Narrative* Tima Peterson PA-C - 06/10/2022 5:50 PM EDT FOLLOW UP VISIT - [id number] DATE OF SERVICE: 06/10/2022 : 1945 REFERRING PHYSICIAN: Sylvia Lizama MD Lisa is a patient I am following with Dr. Crowder for grade 2 follicular lymphoma. The patient needed joint terminal attack controller IV access for treatment. Dr. Crowder performed a right internal jugular portacath placement on 06/05/22. The patient currently notes the incision sites feel fine, but the skin directly under the tape from her dressings becamevery itchy and painful over the last couple of days. She does recall this happening once after a prior surgery as well with adhesive dressings. Notes she developed some blisters around the site. Denies any warmth or purulent drainage. Port is not set to be accessed until next week. VITALS: Blood pressure 142/62, pulse 86, temperature 36.3 C (97.4 F), height 157.5 cm (5' 2), weight 100.7 kg (222 lb), SpO2 94 %. On examination, the port incision sites are clean and intact. The surgical glue is intact. +contactdermatitis in pattern of adhesive tape dressing and op sites. All adhesive dressings removed and site thoroughly cleansed of adhesive residue Assessment IMPRESSION: Status post right IJ port a cath placement. Allergic contact dermatitis to dressing adhesives PLAN: OK to shower as long as port not actively accessed May leave incision sites open to air OK to use small amount of benadryl cream at sites of adhesive dermatitis for itching Surgical glue should fall off on its own over the next few days If the patient notes any problems or signs of wound infections, she should contact me immediately. We discussed the unlikely risks, signs and symptoms of central catheter infection and superficial port pocket infection. If these signs are present, she should contact our office of the oncologist immediately. We discussed that the port should be flushed monthly if not being used regularly. Patient also inquiring about a cream to use prior to treatments that she had been informed about bysomeone in hem/onc, states Rx had not been sent in-will forward note to hem/onc for review. Diagnoses: (L23.1) Allergic contact dermatitis due to adhesives (primary encounter diagnosis) (Z95.828) Port-A-Cath in place Tima Peterson PA-C documented in this encounterCleveland [id number] Instructions* Patient Instructions* Tima Peterson PA-C - 06/10/2022 4:05 PM EDT OK to shower as long as port not actively accessed May leave incision sites open to air OK to use small amount of benadryl cream at sites of adhesive dermatitis for itching Surgical glue should fall off on its own over the next few days Call immediately if any worsening symptoms documented in this [facility]09-19-2022 Miscellaneous Notes* Telephone Encounter - Viv Lo RN - 06/10/2022 12:56 PM EDT Lisa is scheduled for today with SANDEEP Headley at 1530. Viv Lo RN * Telephone Encounter - Viv Lo RN - 06/10/2022 12:32 PM EDT Attempted to call Lisa ([phone]) no answer and her voicemail box is full. Viv Lo RN * Telephone Encounter - Rose Marie Humphreys - 06/10/2022 12:15 PM EDT Pt call regarding the tape around her port since the placement. She states she is allergic as it isitchy and she is breaking out in blisters around it. Wasn't sure if she should be seen or what she should do. documented in this [facility]09-14-2022 NoteHNO ID: [id number] Author: Elida Dodd RN Service: Nursing Author Type: Registered Nurse Type: Nursing Progress Note Filed: 06/05/2022 12:01 PM Note Text: Other: pt ready for OR, call light in reach, daughter called to [facility]09-09-2022 Miscellaneous Notes* Telephone Encounter - Sylvia Lizama MD - 05/31/2022 3:01 PM EDT Ok to do * Telephone Encounter - Hui Carrion APRN.CNP - 05/31/2022 12:36 PM EDT Pt is scheduled for port-a-cath placement with Dr. Crowder at [place] 06/05/2022. Pt currently is taking Eliquis for hx DVT. Per PACC guidelines we would like the pt to hold for 72 hours prior to surgery. Is this okay with you? Pt. Was placed on medication by PCP, note routed to that physician. documented in this encounterAcmc Healthcare System09-09-2022 Miscellaneous Notes* Telephone Encounter - Missy Peralta LPN - 05/31/2022 10:50 AM EDT Patient requesting 90 day refill through [facility]. Missy Peralta LPN documented in this encounterAcmc Healthcare System09-09-2022 Instructions* Patient Instructions* Hui Carrion APRN.LEONCIO - 05/31/2022 8:57 AM EDT PATIENT PREOPERATIVE INSTRUCTIONS Zeny Crowder MD has scheduled you for your procedure at this surgery center: [facility]: [phone] -- [address] [address]. Please read below carefully for your personalized instructions. Dietary Restrictions: - No solid food after midnight. - You may have 12 ounces of clear liquids (water, clear juices such as apple juice or gatorade, carbonated beverages, clear tea, black coffee, jello) until 2 hours before scheduled arrival at facility. Medications: Unless instructed differently below, stay on all of your medications until your surgery. Approved medications to take the morning of surgery with a sip of water: Carvedilol, Famotidine, Gabapentin, Hydralazine, Levothyroxine, Omeprazole, Potassium Chloride DO NOT TAKE YOUR Maxzide THE NIGHT BEFORE OR MORNING OF SURGERY If you start any new medications after today's visit, please contact the surgeon's office. Blood Thinning Medications: - Stop NSAIDS (Ibuprofen, Advil, Aleve, Motrin, Celebrex, Mobic, etc.) 7 days before surgery, as directed by your surgeon. - Stop Aspirin 7 days before surgery, as directed by your surgeon. - Stop Vitamin E, ALL multi-vitamins, herbals and dietary supplements 7 days before surgery. - You may take Tylenol (Acetaminophen) or any of your pain medications that do not contain aspirin or NSAIDS as needed. - STOP ELIQUIS 72 hours prior to procedure Important Reminders: - If you use CPAP/BIPAP, bring the machine with you to the surgery center. - If you are prescribed inhalers for breathing, continue using them. - Candy, mints, and tobacco products are NOT permitted the morning of surgery. - Hearing aids, dentures and glasses may be worn the morning of surgery. - NO jewelry, body piercings, makeup, hairpins or contacts are to be worn the day of surgery. If you develop symptoms such as a fever, cold, or flu, or have other changes to your health within TWO DAYS of scheduled surgery or the morning of surgery, please contact the surgery center above. Personal Belongings: -Please have photo ID and insurance cards. -If you do not have a copy of advance directives on file with us, please bring a copy with you on the day of surgery. - Leave ALL valuables and money at home or with family members. For Outpatient Procedures: - YOU MUST HAVE A RESPONSIBLE WRAPPER REWINDER TAKE YOU HOME. A TITLE I DIRECTOR OR VP PRODUCTION CANNOT BE MADE A RESPONSIBLE WRAPPER REWINDER. - We recommend that a responsible person stays with you overnight to take care of you. - You cannot stay in a hotel alone after outpatient surgery. You will not be permitted to have yoursurgery, if you do not have someone to take care of you. Arrival Time for Surgery: - The Surgery Center or hospital where you are having surgery will call the afternoon before surgery (or Friday for Sukhwinder surgery) with a scheduled arrival time. - If you have not heard by 4 pm, please contact the surgery center above. Please be aware that emergency situations arise, which may delay or change your surgical time. If this happens, we will notify you as soon as possible and regret any inconvenience. If you already have an Advance Directive, please fax a copy to [phone] or email to for it to be added to your chart. If you do not have an Advance Directive, you can find the appropriate form and more information at [email or web address]. We recommend that youcomplete the Advance Directive form found on the website and bring it with you the day of your surgery. It can be witnessed and scanned into your chart that day. Hui Carrion APRN.LEONCIO documented in this encounterAcmc Healthcare System09-09-2022 History and physical note * Hui Carrion APRN.CNP - 05/31/2022 8:53 AM EDT HISTORY AND PHYSICAL EXAMINATION SERVICE DATE: 05/31/2022 SERVICE TIME: 8:53 AM PRIMARY CARE PHYSICIAN: Sylvia Lizama MD REASON FOR VISIT: Lisa Up is a 76 year old female who is scheduled for Procedure(s): INSERTION CATHETER PORT-A-CATH WITH C-ARM (Right) at the request of Dr. Zeny Crowder for consultation. My final recommendation will be communicated back to the requesting physician by way of shared medical record or letter. 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 Chronic Bilateral Low Back Pain With Sciatica Chronic Left-Sided Thoracic Back Pain Spinal Stenosis, Lumbar Region, With Neurogenic Claudication Obesity due to excess calories, unspecified obesity severity E66.09 Essential Tremor Christiana On Cpap Chronic Bilateral Low Back Pain With Bilateral Sciatica Spondylosis of Lumbar Region Without Myelopathy Or Radiculopathy Spinal Stenosis, Lumbar Region With Neurogenic Claudication Lumbar Spondylosis Wound Infection After Surgery History of Dvt (Deep Vein Thrombosis) History of Lumbar Fusion Acquired Spondylolisthesis of Lumbosacral Region Lumbosacral Stenosis Poor Posture Non-Rheumatic Tricuspid Valve Insufficiency Bilateral Carotid Artery Stenosis Chronic Tension-Type Headache, Intractable Intractable Chronic Migraine Without Aura and Without Status Migrainosus Cervicalgia Chronic Migraine Without Aura, With Intractable Migraine, So Stated, With Status Migrainosus Chronic Daily Headache Difficult Airway Lymphadenopathy, Generalized Mild Protein-Calorie Malnutrition (Hcc) Hypothyroid Obesity, Class II, Bmi 35-39.9 B-Cell Lymphoma (Hcc) 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 05/28/2022 Dr. 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 Lisa is currently scheduled to undergo chemotherapy and needs vascular access for treatment. The patient denies a prior history of central venous access. The patient is right hand dominant. The patient is being seen by me today at the request of Dr. Escudero for my opinion and advice regarding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 (hcc) (primary encounter diagnosis). REVIEW OF SYSTEMS: General: No weight loss, malaise or fevers. 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 No neurological symptoms or problems. Respiratory: Abril Mast PA-C FriMay 25, 2021 Hospital Course: This is a 75yo female who initially presented to OSH ED with wheezing and respiratory distress. In the ED decision was made to intubate. During intubation there was significant difficulty securing the airway and a cricothyrotomy was attempted and unsuccessful. Per-intubation, the patient went into cardiac arrest with ROSC after 12-14 minutes, during the code was successfully orotracheally intubated. Post-arrest her mentation was intact and did not require TTM however she was sedated given she had a very difficult airway. She was admitted to [facility] for ongoing care. On arrival patient underwent CT neck which was negative for [place] or deep tissue infection and empiric abx were stopped. ENT was consulted and patient was managed on pepcid and decadron. She has intermittenthad a cuff leak however not sustained with size 7.0 ETT. Given hx of recurrent episodes of tongue and throat swelling reported by family, allergy was also consulted and felt this was unlikely hereditary angioedema given normal C4. She was extubated 05/23 and monitored in ICU for thick upper airway secretions and voice hoarseness post extubation. Voice was improving and stronger each day and secretions better managed after initiation of mucomyst. Course c/b HTN requiring up-titration of home meds and briefly on nitroprusside gtt. Positive for: obstructive sleep apnea and CPAP/BiPAP compliant. Negative for: asthma, COPD, pneumonia within 6 weeks, tobacco use and URI < 2 weeks. Cardiovascular: Positive for: anticoagulation therapy, DVT/PE (on rx) and hypertension (on rx) Negative for: arrhythmia, atrial fibrillation, CAD, chest pain, CHF, congenital heart defect, hyperlipidemia, recent [place], murmur/valvular heart disease, open heart surgery and valve surgery. GI: Positive for: GERD (on rx) Negative for: abdominal pain, dysphagia, hepatitis, irritable bowel syndrome, inflammatory bowel disease, liver disease, nausea, pancreatitis, vomiting and ETOH >2 drinks/day. : Positive for: renal failure (s/p partial nephrectomy, benign patho). Patient's renal failure is chronic. Negative for: urinary incontinence, nephrolithiasis and urinary tract infection. 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 Endocrine: Positive for: hypothyroidism (on rx). Negative for: diabetes mellitus. Hematology: Positive for: chronic anti-coagulation/platelet meds. Oncology: See HPI. Psych: No history of psychiatric symptoms or problems. Musculoskeletal: Positive for: back pain (s/p lumbar fusion). Skin: Negative for lesions, rash and itching. PAST MEDICAL HISTORY Diagnosis Date ANXIETY STATE NOS 06/07/2005 Arthritis Cancer (HCC) Carpal tunnel syndrome 06/07/2005 Cholelithiasis 06/17/2012 DEPRESSIVE DISORDER NEC 06/07/2005 Diverticulosis of colon (without mention of hemorrhage) Dizziness and giddiness 02/26/2010 GENERAL OSTEOARTHROSIS 06/07/2005 Goiter, unspecified 12/11/2010 Headache(784.0) 02/26/2010 Chronic. 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 Ramírez, severe PAST SURGICAL HISTORY Procedure Laterality Date ABDOMINAL SURGERY HX ARTHRP KNE CONDYLE&PLATU MEDIAL&LAT COMPARTMENTS February2010 Knee replacement, total, Left ARTHRP KNE CONDYLE&PLATU MEDIAL&LAT COMPARTMENTS 07/2010 Knee replacement, total, Right BACK SURGERY HX COLONOSCOPY FLX DX W/COLLJ SPEC WHEN PFRMD 06/05/2011 Colonoscopy COLONOSCOPY FLX DX W/COLLJ SPEC WHEN PFRMD N/A 12/04/2016 ESOPHAGOGASTRODUODENOSCOPY TRANSORAL DIAGNOSTIC N/A 12/04/2016 DEVORA FILTER 2019 JOINT REPLACEMENT HX NEPHRECTOMY PARTIAL 1986 Nephrectomy, partial left (benign) PAST SURGICAL HISTORY OF 06/2018 lumbar burger with wound infection TONSILLECTOMY HX TOTAL ABDOMINAL HYSTERECT W/WO RMVL TUBE OVARY 1985 Hysterectomy, NEISHA VAGINAL HYSTERECTOMY FAMILY HISTORY Problem Relation Age of Onset Heart Mother Cancer Mother lung Heart Father other (Other) Father Heart Brother [place], aneurysm Migraines Daughter Macular Degen Maternal Aunt Social History Tobacco Use Smoking status: Never Smokeless tobacco: Never Vaping Use Vaping Use: Never used Substance Use Topics Alcohol use: No Drug use: No Prior to Admission medications as of 05/31/22 0845 Medication Sig Last Dose Taking levothyroxine (SYNTHROID) 75 mcg tablet Take 1 tablet by mouth daily before breakfast. Taking Yes apixaban (ELIQUIS) 5 mg tab(s) Take 1 tablet by mouth twice daily. Taking Yes potassium chloride (K-TAB) 10 mEq tablet Take 1 tablet by mouth twice daily. Taking Yes famotidine (PEPCID) 20 mg tablet Take 1 tablet by mouth twice daily as needed. Taking Yes triamterene-hydroCHLOROthiazide (MAXZIDE-25MG) 37.5-25 mg per tablet Take 1 tablet by mouth once daily. Taking Yes carvedilol (COREG) 12.5 mg tablet Take 1 tablet by mouth twice daily. Taking Yes gabapentin (NEURONTIN) 300 mg capsule Take 1 capsule by mouth every 8 hours for 90 days. Taking Yes allopurinol (ZYLOPRIM) 300 mg tablet Take 1 tablet by mouth once daily. Taking Yes prochlorperazine (COMPAZINE) 10 mg tablet Take 1 tablet by mouth every 6 hours as needed. Taking Yes HYDROcodone-acetaminophen (NORCO) 5-325 mg per tablet Take 1 tablet by mouth twice daily as needed for pain. Taking Yes acetaminophen 650 mg CR tablet Take 650 mg by mouth every 8 hours as needed. Taking Yes hydrALAZINE (APRESOLINE) 25 mg tablet Take 1 tablet by mouth every 12 hours. Taking Yes omeprazole (PRILOSEC) 20 mg capsule Take 1 capsule by mouth twice daily. 1/2 hr before meal. TakingYes EPINEPHrine (EPIPEN) 0.3 mg/0.3 mL auto-injector Use as directed Taking Yes multivitamin/iron/folic acid (CENTRUM ULTRA WOMEN'S ORAL) Take by mouth. Taking Yes Medication Comments documented by Kalina Catalan RPh on 05/28/2021 at 1329. [facility] [id number] [employer] Multi-vitamin Mail service [facility] 04/08/18 Patient stopped taking Coreg or Clonidine - took amlodipine 5mg BID 04/07 and 04/08 from old rx. Lala Weston RN ALLERGIES Allergen Reactions Covid-19 Vaccine, M* Anaphylaxis Erythromycin Rash, GI Upset Urticarial rash, seen in [place] [facility] Latex Swelling Lisinopril Swelling Nafcillin Itching 06/29/21 negative penicillin skin testing. Passed oral amoxicillin challenge. Norvasc [Amlodipine* Swelling Wasps Mental Status Change, Rash Objective PHYSICAL EXAM: General: alert and oriented (x3) and healthy appearance. Pertinent negatives noted - not distressed. Skin: normal color, no rash or lesions. HEENT: EOM intact and pupils equal round. Pertinent negatives noted - no carotid bruit. Cardiovascular: regular rate and rhythm, normal S1 and S2, no rub, murmurs, or gallop. Respiratory: normal breath sounds, no wheezes or crackles. No chest wall deformity or tenderness. Abdomen: soft. Pertinent negatives noted - not tender. Extremities: no deformity, no edema or tenderness, no joint swelling or clubbing. Neurological: normal cognition and motor skills. Gait normal. No weakness or sensory deficit. PAIN ASSESSMENT: VITALS: BP 118/58 Pulse 72 Temp (Src) 97.2 (Temporal) Resp 16 Ht 5' 2 (1.58m) Wt 221 lb (100.2kg) SpO2 97% BMI 40.41 kg/(m^2). Diagnostic tests reviewed for today's visit: Lab Value Units Date High Low HB 12.5 g/dL 05/15/2022 15.5 11.5 HCT 38.7 % 05/15/2022 46.0 36.0 WBC 5.46 k/uL 05/15/2022 11.00 3.70 PLT 129 k/uL 05/15/2022 400 150 NA 137 mmol/L 05/01/2022 144 136 K 4.3 mmol/L 05/01/2022 5.1 3.7 GLUC 86 mg/dL 05/01/2022 99 74 BUN 18 mg/dL 05/01/2022 21 7 CREAT 0.83 mg/dL 05/01/2022 0.96 0.58 PTSEC No results within date range. INR No results within date range. APTT No results within date range. ALT 5 U/L 05/01/2022 38 7 AST 22 U/L 05/01/2022 35 13 TBILI 0.4 mg/dL 05/01/2022 1.3 0.2 TSH 1.310 mIU/L 04/22/2022 4.200 0.270 Lab Value Units Date High Low HCGQT No results within date range. UHCG No results within date range. HCG, BODY* No results within date range. Lab Value Units Date High Low ABORHD No results within date range. ABSCREEN No results within date range. Hemoglobin A1C (%) Date Value 11/24/2018 5.6 HBA1C, Sofiya (%) Date Value 06/10/2007 5.5 No results found for this or any previous visit (from the past 8760 hour(s)). Recent Results (from the past 03035 hour(s)) ECHO Collection Time: 05/19/21 7:32 AM Impression CONCLUSIONS: - Technically difficult exam due to body habitus, suboptimal positioning, bandages/chest tubes/wound and mechanical ventilation. - Exam indication: S/p PEA arrest due to angioedema - The left ventricle is small. Left ventricular systolic function is normal. EF = 58 5% (2D 4-ch.) Overall normal systolic function with focal region of hypokinesis in the basal inferior and infero septum. - The right ventricle is normal in size. Suboptimally visualized. However impression of preserved function. -No obvious cardiac cause for arrest within the limitations of a suboptimal study. - Reverberation artifact noted in the ascending aorta. - Exam was compared with the prior CC echocardiographic exam performed on 09/28/2020. Stable in comparison to previous TTE. The aforementioned inferior wall abnormalities were observed on the pre-arrest TTE. * * * Final * * * Assessment Bilateral carotid artery stenosis Assessment: mild, 2019 US IMPRESSION RIGHT SIDE Internal carotid artery: 20-39% stenosis. Vertebral artery: Patent and antegrade flow noted. LEFT SIDE Internal carotid artery: 20-39% stenosis. Vertebral artery: Patent and antegrade flow noted. Essential hypertension Assessment: controlled on rx Last 14 BP Last 14 Encounter BP Readings: Date: BP: 05/31/2022 118/58 05/28/2022 148/72 05/22/2022 123/61 05/13/2022 130/82 05/07/2022 128/74 05/03/2022 116/57 05/03/2022 114/56 04/22/2022 144/90 01/29/2022 122/52 11/01/2021 157/64 10/18/2021 165/70 10/16/2021 130/72 06/29/2021 122/51 05/17/2021 114/57 History of DVT (deep vein thrombosis) Assessment: provoked by surgery and sepsis, on Eliquis, s/p Devora filter, TE to Dr. Escudero for pre-op AC instructions History of lumbar fusion Assessment: h/o Hyperlipidemia, unspecified Assessment: diet controlled Hypothyroid Assessment: stable on rx Intractable chronic migraine without aura and without status migrainosus Assessment: otc analgesics as needed Non-rheumatic tricuspid valve insufficiency Assessment: trace 09/2020 Echo CONCLUSIONS: - Technically difficult exam due to body habitus, suboptimal positioning, bandages/chest tubes/wound and mechanical ventilation. - Exam indication: S/p PEA arrest due to angioedema - The left ventricle is small. Left ventricular systolic function is normal. EF = 58 5% (2D 4-ch.) Overall normal systolic function with focal region of hypokinesis in the basal inferior and infero septum. - The right ventricle is normal in size. Suboptimally visualized. However impression of preserved function. -No obvious cardiac cause for arrest within the limitations of a suboptimal study. - Reverberation artifact noted in the ascending aorta. - Exam was compared with the prior CC echocardiographic exam performed on 09/28/2020. Stable in comparison to previous TTE. The aforementioned inferior wall abnormalities were observed on the pre-arrest TTE. Obesity due to excess calories, unspecified obesity severity E66.09 Assessment: Body mass index is 40.42 kg/m . CHRISTIANA on CPAP Assessment: c/w CPAP GERD (gastroesophageal reflux disease) Assessment: controlled on rx CKD (chronic kidney disease) Assessment: Creatinine Date Value Ref Range Status 05/01/2022 0.83 0.58 - 0.96 mg/dL Final 04/22/2022 0.86 0.58 - 0.96 mg/dL Final 01/29/2022 0.83 0.58 - 0.96 mg/dL Final 10/18/2021 0.71 0.58 - 0.96 mg/dL Final Difficult airway Assessment: pt had angioedema reaction due to COVID vaccine 05/2021, presented with wheezing and respiratory distress, during intubation there was significant difficulty securing the airway and a cricothyrotomy was attempted and unsuccessful, per-intubation, the patient went into cardiac arrest withROSC after 12-14 mintues, during the code was successfully orotracheally intubated. SEE ROS for hospital course [place] Activity Status Index: METS: Climb a flight of stairs or walk up a hill (5.50 METs) DASI Score: 5.5 Patient denies any chest pain or undue shortness of breath with the above physical activity. Clinical Frailty Scale: 3. Well, with treated comorbid disease STOP-Bang Score: Sndaniele loudly Has or is being treated for high blood pressure BMI greater than 35 kg/m^2 Patient over 50 years old Has a large neck Denies feeling tired, fatigued, or sleepy during the daytime Has not been observed to stop breathing or choking/gasping during sleep Non-male patient STOP-Bang Score: 5 [id number] Score: Age: >=75 Sex: female CHF history: No Hypertension history: Yes Stroke/TIA/thromboembolism history: Yes Vascular disease history: No Diabetes history: No [id number] Score: 6 ARISCAT Score: Age: 51-80 ARISCAT Score: ASA Class: 3 ANESTHESIA FINDINGS: Intubation History: Significant Anesthesia Considerations: none Airway History: Difficult airway documented by an anesthesiologist during past surgical procedure I - PHYSICAL EVALUATION AIRWAYTracheostomy tube not present Mallampati: I. TM distance: >3 FB. Neck ROM: limited flexion and extension. Mouth opening: adequate. Short neck: no. Thick neck: yes DENTAL Dentures, upper: complete. II - ANESTHESIA PLAN ASA Score: 3 Anesthetic Plan: other Anesthetic plan additional comments: *PACC/TCI - anesthesia choice. Informed Consent Anesthetic risks, benefits, alternatives, personnel and consent discussed: yes. Patient / Responsible Constitution Party agrees to proceed: yes Patient / Surrogate agrees to blood products: blood products not planned Prepared for Surgery: optimally prepared for surgery. CONSULTS: Patient does not require consults for optimization at this time Planned Anesthetic: other anesthesia choice The Following Tests/Procedures Have Been Initiated: No orders of the defined types were placed in this encounter. Instructions Given to Patient: Instructions located in the after visit summary. Patient given verbal and written preop instructions and voices comprehension and compliance. 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 Lisa is currently scheduled to undergo chemotherapy and needs vascular access for treatment. The patient denies a prior history of central venous access. The patient is right hand dominant. The patient is being seen by me today at the request of Dr. Escudero for my opinion and advice regarding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 (hcc) (primary encounter diagnosis). PAST MEDICAL HISTORY Diagnosis Date ANXIETY STATE NOS 06/07/2005 Arthritis Cancer (HCC) Carpal tunnel syndrome 06/07/2005 Cholelithiasis 06/17/2012 DEPRESSIVE DISORDER NEC 06/07/2005 Diverticulosis of colon (without mention of hemorrhage) Dizziness and giddiness 02/26/2010 GENERAL OSTEOARTHROSIS 06/07/2005 Goiter, unspecified 12/11/2010 Headache(784.0) 02/26/2010 Chronic. 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 Ramírez, severe PAST SURGICAL HISTORY Procedure Laterality Date ABDOMINAL SURGERY HX ARTHRP KNE CONDYLE&PLATU MEDIAL&LAT COMPARTMENTS February2010 Knee replacement, total, Left ARTHRP KNE CONDYLE&PLATU MEDIAL&LAT COMPARTMENTS 07/2010 Knee replacement, total, Right BACK SURGERY HX COLONOSCOPY FLX DX W/COLLJ SPEC WHEN PFRMD 06/05/2011 Colonoscopy COLONOSCOPY FLX DX W/COLLJ SPEC WHEN PFRMD N/A 12/04/2016 ESOPHAGOGASTRODUODENOSCOPY TRANSORAL DIAGNOSTIC N/A 12/04/2016 DEVORA FILTER 2019 JOINT REPLACEMENT HX NEPHRECTOMY PARTIAL 1986 Nephrectomy, partial left (benign) PAST SURGICAL HISTORY OF 06/2018 lumbar burger with wound infection TONSILLECTOMY HX TOTAL ABDOMINAL HYSTERECT W/WO RMVL TUBE OVARY 1986 Hysterectomy, NEISHA VAGINAL HYSTERECTOMY Current Outpatient Medications Medication Sig Dispense Refill [START ON 06/16/2022] allopurinol (ZYLOPRIM) 300 mg tablet Take 1 tablet by mouth once daily. 30 tablet 2 prochlorperazine (COMPAZINE) 10 mg tablet Take 1 tablet by mouth every 6 hours as needed. 30 tablet2 HYDROcodone-acetaminophen (NORCO) 5-325 mg per tablet Take 1 tablet by mouth twice daily as needed for pain. acetaminophen 650 mg CR tablet Take 650 mg by mouth every 8 hours as needed. hydrALAZINE (APRESOLINE) 25 mg tablet Take 1 tablet by mouth every 12 hours. 180 tablet 1 omeprazole (PRILOSEC) 20 mg capsule Take 1 capsule by mouth twice daily. 1/2 hr before meal. 60 capsule 5 EPINEPHrine (EPIPEN) 0.3 mg/0.3 mL auto-injector Use as directed 2 Each 1 multivitamin/iron/folic acid (CENTRUM ULTRA WOMEN'S ORAL) Take by mouth. levothyroxine (SYNTHROID) 75 mcg tablet Take 1 tablet by mouth daily before breakfast. 90 tablet 1 apixaban (ELIQUIS) 5 mg tab(s) Take 1 tablet by mouth twice daily. 180 tablet 3 potassium chloride (K-TAB) 10 mEq tablet Take 1 tablet by mouth twice daily. 180 tablet 3 famotidine (PEPCID) 20 mg tablet Take 1 tablet by mouth twice daily as needed. 180 tablet 1 triamterene-hydroCHLOROthiazide (MAXZIDE-25MG) 37.5-25 mg per tablet Take 1 tablet by mouth once daily. 90 tablet 0 carvedilol (COREG) 12.5 mg tablet Take 1 tablet by mouth twice daily. 180 tablet 1 gabapentin (NEURONTIN) 300 mg capsule Take 1 capsule by mouth every 8 hours for 90 days. 90 capsule2 No current facility-administered medications for this visit. ALLERGIES: Covid-19 Vaccine, Mrna, [id number], Lnp-S (Moderna); Erythromycin; Latex; Lisinopril; Nafcillin; Norvasc [Amlodipine Besylate]; and Wasps PERSONAL HISTORY: Social History Tobacco Use Smoking status: Never Smokeless tobacco: Never Vaping Use Vaping Use: Never used Substance Use Topics Alcohol use: No Drug use: No FAMILY HISTORY: FAMILY HISTORY Problem Relation Age of Onset Heart Mother Cancer Mother lung Heart Father other (Other) Father Heart Brother [place], aneurysm Migraines Daughter Macular Degen Maternal Aunt REVIEW OF SYMPTOMS: The review of systems data was entered by the nurse and reviewed by me Nursing Notes: Viv Lo RN 05/28/2022 3:01 PM Signed REVIEW OF SYSTEMS: General: The patient NOTES fatigue, denies weight loss, denies weight gain, denies feeling hot, anddenies feelings of cold. Eyes: The patient denies glaucoma, denies eye injury/surgery, does not wear glasses or contacts. Ear/Nose/Throat: The patient NOTES allergies, denies hayfever, denies ear infections, and denies bloody noses. Cardiovascular: The patient denies chest pain, denies heart disease, NOTES high blood pressure,denies cardiac stent, denies prior heart attack, denies irregular heart beat, denies high cholesterol, denies poor circulation, denies heart failure, other cardiac issues, NOTED claudication, NOTES cold feet, denies peripheral arterial stent. Respiratory: The patient denies tuberculosis, denies pneumonia, denies frequent cough, denies pulmonary embolism, denies shortness of breath, and denies coughing up blood. Gastrointestinal: The patient denies difficulty swallowing, denies acid reflux, denies ulcers, denies vomiting, denies jaundice/hepatitis, NOTES gallbladder problems, denies black or tarry stools, NOTES hemorrhoids, denies bleeding from rectum, denies diverticulitis, NOTES constipation, denies diarrhea, denies loss of stool control, and denies hernias. Kidney/Bladder: The patient denies kidney stones, NOTES urine infections, and denies bloody urine. Skin: The patient denies a history of skin cancer, denies bleeding/changing moles, and denies a history of skin rash. Neurologic: The patient denies a history of epilepsy/convulsions, NOTES headaches, denies head/spinal injuries, and denies stroke/TIA. Psychiatric: The patient denies psychiatric medications, denies depression, and denies voices, denies substance abuse. Endocrine: The patient NOTES thyroid disorders, denies diabetes, and denies hormonal problems. Hematologic: The patient denies a history of bruising, denies bleeding, and denies anemia, denies blood clots. Infections: The patient denies a history of measles and mumps, denies rheumatic fever, and denies sexually transmitted diseases. Musculoskeletal: The patient NOTES back pain/injury, NOTES back problems, denies sciatica, denies knee/foot trouble, denies arthritis, or denies gout. When was patient's last Mammogram screening? 03/21/2022 Last Colonoscopy: 12/04/2016 Viv Lo RN PHYSICAL EXAMINATION: General: The patient is 76 year old female, well nourished, well hydrated in no acute distress. Thepatient is oriented to time, place, and person. VITALS: Blood pressure 148/72, pulse 86, temperature 36.5 C (97.7 F), height 157.5 cm (5' 2), weight 101.1 kg (222 lb 12.8 oz), SpO2 96 %. Body mass index is 40.75 kg/m . HEENT: Normal cephalic, ataumatic, pupils are equally round, sclera are anicteric, mucous membranesare moist, oropharynx is clear. Neck has no masses, asymmetry or lymphadenopathy. Thyroid is unremarkable. Respiratory: Clear to auscultation and percussion. Normal respiratory excursion and pattern. Cardiac: Examination is regular rate and rhythm. Abdominal exam: Soft, nontender, with no palpable masses. No hepatosplenomegaly. No palpable hernias. Rectal exam: exam deferred Extremities: no clubbing, cyanosis or edema. No adenopathy. 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 The planned surgical procedure was discussed extensively with the patient. The risks, benefits, anticipated outcomes and possible complications were mentioned. My staff has also explained the procedure in understandable terms and the patient was given the option to take printed material concerning the planned procedure.The patient had the opportunity to ask questions concerning the planned procedure. The patient freely consents to the planned procedure. Planned Procedure: right Internal Jugular Portacath - [id number] Patient Weight Last 1 Encounter Wt Readings: Date: Wt: 05/28/2022 101.1 kg (222 lb 12.8 oz) Antibiotic: Ancef 2gm IVPB endodontist to OR Planned Anesthetic: MAC with local I will not plan to access the port at the time of surgery. Diagnoses: (C82.18) 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) (primary encounter diagnosis) The patient is being seen by me today at the request of Dr. Escudero for my opinion and advice regarding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 (hcc) (primary encounter diagnosis). COVID (Procedure Consent) Procedure Criteria Procedure Criteria: Yes Elective The surgeon/proceduralist and patient have discussed in detail therisk of exposure to and/or potential harm posed by the COVID-19 virus with having a surgery/procedure at this time versus the risk of delaying the surgery/procedure. It is not possible to know eitherthe risk of delaying the surgery or procedure or chance of getting an infection with perfect accuracy, but a joint decision was made between the patient and the surgeon/proceduralist to proceed at this time with the scheduled surgery/procedure as indicated on the consent form. Zeny Crowder III, MD documented in this encounterAcmc [facility]09-06-2022 Nurse Note* Viv Lo RN - 05/28/2022 2:56 PM EDT REVIEW OF SYSTEMS: General: The patient NOTES fatigue, denies weight loss, denies weight gain, denies feeling hot, anddenies feelings of cold. Eyes: The patient denies glaucoma, denies eye injury/surgery, does not wear glasses or contacts. Ear/Nose/Throat: The patient NOTES allergies, denies hayfever, denies ear infections, and denies bloody noses. Cardiovascular: The patient denies chest pain, denies heart disease, NOTES high blood pressure,denies cardiac stent, denies prior heart attack, denies irregular heart beat, denies high cholesterol, denies poor circulation, denies heart failure, other cardiac issues, NOTED claudication, NOTES cold feet, denies peripheral arterial stent. Respiratory: The patient denies tuberculosis, denies pneumonia, denies frequent cough, denies pulmonary embolism, denies shortness of breath, and denies coughing up blood. Gastrointestinal: The patient denies difficulty swallowing, denies acid reflux, denies ulcers, denies vomiting, denies jaundice/hepatitis, NOTES gallbladder problems, denies black or tarry stools, NOTES hemorrhoids, denies bleeding from rectum, denies diverticulitis, NOTES constipation, denies diarrhea, denies loss of stool control, and denies hernias. Kidney/Bladder: The patient denies kidney stones, NOTES urine infections, and denies bloody urine. Skin: The patient denies a history of skin cancer, denies bleeding/changing moles, and denies a history of skin rash. Neurologic: The patient denies a history of epilepsy/convulsions, NOTES headaches, denies head/spinal injuries, and denies stroke/TIA. Psychiatric: The patient denies psychiatric medications, denies depression, and denies voices, denies substance abuse. Endocrine: The patient NOTES thyroid disorders, denies diabetes, and denies hormonal problems. Hematologic: The patient denies a history of bruising, denies bleeding, and denies anemia, denies blood clots. Infections: The patient denies a history of measles and mumps, denies rheumatic fever, and denies sexually transmitted diseases. Musculoskeletal: The patient NOTES back pain/injury, NOTES back problems, denies sciatica, denies knee/foot trouble, denies arthritis, or denies gout. When was patient's last Mammogram screening? 03/21/2022 Last Colonoscopy: 12/04/2016 Viv Lo RN documented in this encounterAcmc [facility]09-06-2022 History of Present illness Narrative* Chinyere Shea RN - 05/28/2022 2:34 PM EDT Patient teaching was completed over the phone. 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 YES Confirmed date and time for chemotherapy ? YES Other appointments (labs, imaging) discussed? 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 YES Described the infusion room and what to expect. (What to wear, what to bring [iPad, books] amount of time treatment can take, meals and CC options for food) YES Note: na Discussed whether the patient can eat prior to labs and treatment. YES Who is driving you to and from treatment? Daughter Discussed why it is important to bring someone with you. Yes, Resources discussed (music therapy, Art therapy, pet therapy, etc.) YES Education on chemotherapy (drug, side effects) discussed and that the patient will be receiving a C1D1 call within 7 days of treatment. YES Other topics discussed, interventions needed: dheeraj Shea RN * Chinyere Shea RN - 05/28/2022 1:29 PM EDT ONCOLOGY PATIENT EDUCATION NOTE TOPIC: Chemotherapy, Medications: Rituxan and [place] READINESS TO LEARN: COGNITIVE ABILITY: Alert and oriented MOTIVATION TO LEARN: Interested FAMILY SUPPORT: High - Very involved in pt care INSTRUCTION PROVIDED TO: Patient and Daughter INSTRUCTION PROVIDED BY: Nurse Coordinator PATIENT LEARNS BEST BY: Multiple Methods FACTORS AFFECTING LEARNING: None PHYSICAL LIMITATIONS AFFECTING LEARNING: None LEARNING RESPONSE DIAGNOSIS: Follicular Lymphoma METHOD OF INSTRUCTION: Individual instruction Written instruction - handouts Verbal instruction PATIENT/FAMILY RESPONSE: Verbalizes understanding of: CHEMOTHERAPY-Regimen, toxicity and side effects FOLLOW UP PLAN: Recommend - Recommend continued instruction and follow up as directed Contact information given. SUPPLEMENTAL MATERIAL: Written material was provided at this visit with the following information: - Chemotherapy education was provided by a pharmacist NO - Side effect management information was provided/discussed including but not limited to: anemia, bowel habit changes, fatigue, headache, infection, myalgia, nausea/vomitting, neutropenia, rash, shortness of breath, thrombocytopenia YES - Provided important phone numbers and contacts during and after hours. YES - Provided information on symptoms that require immediate assistance. YES - Provided Chemotherapy when to call handouts YES - Preventing infection. YES - Treatment schedule and confirmation of appointment times. No appointments scheduled at this time as patient to not start treatment until the end of the month d/t vacation. Patient has MyChart and will check for updates. - Available support groups. YES - The importance of contraception during the course of chemotherapy NA - Neutropenic fever protocol discussed with patient, which included the importance of reporting anyfever of 100.4F (38.0C) or greater to the healthcare team as noted on the provided wallet card and/or magnet. YES Time Spent: 55 minutes REFERRAL (RECOMMENDATION): Social Work to call patient at another time. Patient has another appointment after this one. Chinyere Shea RN documented in this encounterAcm[facility] System09-06-2022 Miscellaneous Notes* Telephone Encounter - Luz Morfin Ma - 05/28/2022 2:06 PM EDT Last office visit: 04/22/22 F/u scheduled: none Luz Morfin Ma documented in this encounterAcmc Healthcare System09-06-2022 Miscellaneous Notes* Telephone Encounter - Ashley Beauchamp LPN - 05/28/2022 7:59 AM EDT Patient has been identified by name and date of : Yes Requested Prescriptions Pending Prescriptions Disp Refills allopurinol (ZYLOPRIM) 300 mg tablet 30 tablet 2 Sig: Take 1 tablet by mouth once daily. RX INSTRUCTIONS: Patient aware RX will be sent to pharmacy. No need to notify patient. Ashley Beauchamp LPN documented in this encounterAcmc Healthcare System09-01-2022 Miscellaneous Notes* Telephone Encounter - Talia Silver LPN - 05/23/2022 2:17 PM EDT Patient aware. * Telephone Encounter - Sylvia Lizama MD - 05/23/2022 2:16 PM EDT Ok to do * Telephone Encounter - Talia Silver LPN - 05/23/2022 2:14 PM EDT Spoke with patient. She has never had issues with either of these vaccines in the past. States it has just been a long time since she had either one. Ok to do? * Telephone Encounter - Sylvia Lizama MD - 05/23/2022 1:38 PM EDT I dont recall saying she should not get flu shot. Verify for me, has she had any issues with the flu shot in the past? * Telephone Encounter - Lou Purvis RN - 05/23/2022 12:26 PM EDT Patient calls and states that Dr. Escudero wants her to get flu shot and pneumonia. Patient states that Dr. Lizama had told her that she should not get flu shot. Patient asking if she needs to get shots done in office or can she get it done at drug store? Please review and advise, Lou Purvis RN documented in this encounterAcmc Healthcare System08-31-2022 Miscellaneous Notes* Telephone Encounter - Chinyere Shea RN - 05/22/2022 3:49 PM EDT Met with patient and introduced myself. Patient was given a My Journey binder with chemocare information, office contact information, thermometer, and additional chemotherapy resource booklets. Patient aware this nurse will review on scheduled appointment date. Information given for Rituxan and Bendamustine. Sravanthi Shea RN documented in this encounterAcmc Healthcare System08-31-2022 Miscellaneous Notes* Telephone Encounter - Lou Rincon - 05/22/2022 8:00 AM EDT Spoke with patient and scheduled for this afternoon. Lou Rincon * Telephone Encounter - Chinyere Shea RN - 05/21/2022 4:28 PM EDT Call to patient, no answer, message left to call me back and phone/contact number provided. Chinyere Shea RN * Telephone Encounter - Chinyere Shea RN - 05/21/2022 1:25 PM EDT Call to patient, no answer, message left to call me back and phone/contact number provided. Chinyere Shea RN * Telephone Encounter - Melba Escudero MD - 05/21/2022 1:04 PM EDT Please schedule Lisa for office visit tomorrow to discuss starting chemotherapy for her follicular lymphoma. Melba Escudero MD documented in this encounterAcmc Healthcare System08-30-2022 History of Present illness Narrative* Zeny Crowder MD - 05/21/2022 2:28 PM EDT Preoperative diagnosis: Enlarged lymph node to left axilla Postoperative diagnosis: The same Procedure: Ultrasound-guided needle core biopsy of enlarged lymph node to left axilla Surgeon: Lakesha Procedure: Patient was brought into the procedure room. Left axilla was ultrasound lesion was identified. Skin was prepped with Betadine. 1% lidocaine plain was injected. A skin federico was made. Local was injected down to the lesion under ultrasound guidance. Under ultrasound guidance 3 needle core biopsies were obtained of this lymph node. Under ultrasound guidance a small titanium clip was placed. Sterile dressings were applied and the patient tolerated the procedure well. * Viv oL RN - 05/10/2022 9:38 AM EDT UNIVERSAL PROTOCOL / SAFETY CHECKLIST Procedure to be Performed: Ultrasound guided needle core biopsy left axillary lymph node. Sign In: A Moment of CARE was completed. Personnel directly involved with the procedure wore the appropriate PPE (Personal Protective Equipment). Special equipment: Bard Max-Core disposable core biopsy instrument [id number] and UltraClip dual trigger breast tissue marker [id number]. Patient/Surrogate Stated/Verified: PATIENT VERIFIED(optional for EMERGENT procedures): Patient name, Date of , Relevant allergies, and The intended procedure Time Out Communication: Intended patient and procedure match the source documents. Consent documented and matches the intended procedure. Relevant labs, photos, and/or imaging studies have been reviewed. Correct side/site marked and visible. Medications required for procedure verified. No fire risk assessment and interventions applicable. Implant(s) inserted: Correct implant(s) confirmed including size and side. and Expiration date(s) reviewed. Sign Out: SIGN OUT (optional for EMERGENT procedures): All specimen containers correctly labeled. No instruments, equipment or retained foreign bodies applicable. Post-procedure follow-up management communicated and Plan of Care Visit completed when applicable. Viv Lo RN documented in this encounterAcmc Healthcare System08-24-2022 Miscellaneous Notes* Telephone Encounter - Elmira Monroy MA - 05/15/2022 11:14 AM EDT Verified results with pt. Pt verbalized understanding. Elmira Monroy MA * Telephone Encounter - Carmela Monreal PA-C - 05/15/2022 10:16 AM EDT Please call and let patient know that her urine culture grew a bacteria that is resistant to the medication she is on. Keflex was sent to her pharmacy. She should stop the nitrofurantoin and start Keflex. documented in this encounterAcmc Healthcare System08-22-2022 Miscellaneous Notes* Telephone Encounter - Ashley Beauchamp LPN - 05/13/2022 3:02 PM EDT Pt. Notified, voiced understanding Ashley Beauchamp LPN * Telephone Encounter - Melba Escudero MD - 05/13/2022 2:21 PM EDT Yes, as long as she is not having fever or symptoms. Continue antibiotic and proceed with bone marrow biopsy Friday. Melba Escudero MD * Telephone Encounter - Anel Orellana - 05/13/2022 12:57 PM EDT Patient is having a Bone Marrow Biopsy on 05/15 and she currently has a UTI and was put on medicine.She is wanting to know if she is still ok to have the procedure on 05/15. Please call patient and advise. Thank you, Anel Orellana documented in this encounterAcmc Healthcare System08-22-2022 Instructions* Patient Instructions* Helen Bonilla APRN.LEONCIO - 05/13/2022 11:54 AM EDT ASSESSMENT/PLAN: 1. Urinary frequency - ICD9: 788.41, ICD10: R35.0 (primary diagnosis) acute - UA positive for nolvia esterase, hematuria, and proteinuria - Send urine for culture - Begin treatment with Macrobid 100 mg BID for 7 days - Patient education for prevention given - UA DIP, URINE (POC) - URINE CULTURE - NITROFURANTOIN MONOHYDRATE & MACROCRYSTAL 100 MG ORAL CAP 2. Feared condition not demonstrated - ICD9: V65.5, ICD10: Z71.1 - patient concerned she will get a yeast infection with antibiotic use. - FLUCONAZOLE 150 MG TABLET - Follow-up with your PCP in 3-5 days if symptoms have not improved or sooner if symptoms worsen - Discussed red flags and need for immediate medical evaluation if any occur. - Discussed supportive care treatment with fluids, rest and analgesia. - Discussed expected course of illness Helen Bonilla APRN.[facility] PATIENT INFO BLADDER INFECTION OVERVIEW Bladder infections are one of the most common infections, causing symptoms of burning with urination and needing to urinate frequently. A bladder infection is a type of urinary tract infection (UTI).Bladder infections are more common is women than men. Most women have an uncomplicated bladder infection that is easily treated with a short course of antibiotics. In men, bladder infections may alsoaffect the prostate gland, and a longer course of treatment may be needed. BLADDER INFECTION CAUSES The urinary tract includes the kidneys (which filter urine), ureters (the tube that carries urine from the kidneys to the bladder), the bladder (which stores urine), and urethra (the tube that carries urine out of the bladder). Bacteria do not normally live in these areas. However, bacteria normally live close to the urethra in women and men who are not circumcised. Bladder infections occur when bacteria travel up the urethra into the bladder. Factors that increase the risk of developing a bladder infection include: Vaginal sex Use of spermicides History of past bladder infections Diabetes In men, not being circumcised or having anal sex increase the risk of bladder infections. BLADDER INFECTION SYMPTOMS The typical symptoms of a bladder infection include: Pain or burning when urinating Frequent need to urinate Urgent need to urinate Blood in the urine Fever, back pain, nausea, or vomiting are not common symptoms of a bladder infection, but can occurin people with a kidney infection (pyelonephritis). If you have these symptoms, you should call your doctor or nurse immediately. Is it a bladder infection or something else? -- Burning with urination can also occur in people with vaginitis (eg, yeast infection) or urethritis (inflammation of the urethra). For this reason, it is important to call your healthcare provider before assuming you have a bladder infection. BLADDER INFECTION DIAGNOSIS Simple bladder infections are usually diagnosed based upon your symptoms alone. However, most patients, especially those who have bladder infection symptoms for the first time, should see a healthcare provider for urine testing. Urine culture -- A urine culture is a test that uses a sample of urine to try and grow bacteria in a laboratory. It usually requires about 48 hours to get results. However, a urine culture is not always required to diagnose a bladder infection. Urine culture is often recommended if: You have never had a bladder infection before You have symptoms that are not typical for bladder infection You have had resistant bladder infections before You have frequent bladder infections You do not begin to feel better within 24 to 48 hours after starting antibiotics You are BLADDER INFECTION TREATMENT Bladder infection -- In young, healthy adolescents and adults with a bladder infection, the usual treatment includes a three to seven day course of antibiotics. The typical drugs chosen are: trimethoprim-sulfamethoxazole (Bactrim ), nitrofurantoin (Macrobid ), ciprofloxacin (Cipro ) or levofloxacin (Levaquin ). In men, the infection may involve your prostate gland and treatment is usually given for at least 7days. Your symptoms should begin to resolve within one day after starting treatment. It is important to take the full course of antibiotics to completely eliminate the infection. If your symptoms persist for more than two or three days after starting treatment, call your healthcare provider. If needed, you can take a prescription medication that numbs the bladder and urethra (phenazopyridine [Pyridium ]) to reduce the burning pain of some UTIs. A similar medication is available without aprescription (eg, Uristat). Both medications change the color of the urine (usually blue or orange)and can interfere with laboratory testing. You should not take these medications for more than 48 hours due to the risk of side effects. These medications do not treat the infection and must be takenalong with an antibiotic. Some providers recommend drinking more fluids while treating bladder infections to help flush bacteria from the bladder. Others believe that drinking more fluids may dilute the antibiotic in the bladder and make the medication less effective. No studies have been performed to address this issue. There are also no good studies on the effectiveness of cranberry juice for treating a bladder infection; we do not recommend using cranberry juice to treat bladder infections. Follow-up care -- Follow-up testing is not needed in healthy, young men or women with a bladder infection if symptoms resolve. women are usually asked to have a repeat urine culture one to two weeks after treatment has ended to make sure the bacteria are no longer in the urine. RECURRENT BLADDER INFECTIONS Bladder infections versus other causes -- Some adults, especially women, develop bladder infectionsfrequently. In this case, it is important to confirm that your symptoms (eg, pain or burning, frequency, and urgency) are caused by a bladder infection. Symptoms are usually similar from one infection to another. The best way to confirm an infection is to have a urine culture. If your urine culture is negative for infection, other causes of pain, burning, and frequency should be investigated. There is no reason to take antibiotics if your urine culture is negative. Need for further testing -- If you continue to develop bladder infections, you may require further testing. If you continue to notice blood in your urine after your bladder infection has cleared, you should have further testing. Preventing recurrent UTIs -- Women with recurrent urinary tract infections may be advised to take steps to prevent bladder infections, including one or more of the following: Changes in control -- Women who develop frequent bladder infections and use spermicides, particularly those who also use a diaphragm, may be encouraged to use an alternate method of control. Cranberry products -- Taking cranberry juice or cranberry tablets has been promoted as one way to help prevent frequent bladder infections. However, this has not been proven. Drinking more fluid and urinating after intercourse -- Although studies have not proven that drinking more fluids or urinating soon after intercourse can prevent infection, some healthcare providers recommend these measures since they are not harmful. Drinking more fluid may help to wash out bacteria that enter the bladder. Postmenopausal women -- Postmenopausal women who develop recurrent bladder infections may benefit from using vaginal estrogen. Vaginal estrogen is available in a flexible ring that is worn in the vagina for three months (eg, Estring ), a small tablet (Vagifem ), or a cream (eg, Premarin or Estrace ). Vaginal estrogen is discussed in more detail in a separate topic review. Antibiotics -- A preventive antibiotic treatment may be recommended if you repeatedly develop bladder infections and have not responded to other preventive measures. Antibiotics are highly effective in preventing recurrent bladder infections and can be taken in several different ways. Preventive antibiotic -- You can take a low dose of an antibiotic once per day or three times per week for six months to several years. Antibiotics following intercourse -- In women who develop urinary tract infections after sex, taking a single low dose antibiotic after intercourse can help to prevent bladder infections. Self-treatment -- A plan to begin antibiotics at the first sign of a bladder infection may be recommended in some situations. Before starting this regimen, it is important that you have had testing (urine cultures) to confirm that your symptoms are caused by a bladder infection; some people have symptoms of a bladder infection but do not actually have an infection. documented in this encounterAcmc Healthcare System08-22-2022 History of Present illness Narrative* Helen Bonilla APRN.CNP - 05/13/2022 11:43 AM EDT Subjective UTI Associated symptoms include frequency and urgency. Pertinent negatives include no chills, no nauseaand no vomiting. Lisa Up is a 76 year old female who presents with dysuria, urgency, frequency for the past 5 days. She denies fever or abdominal pain. She has not taken any medication for her symptoms at home. Review of Systems Constitutional: Negative for chills and fever. Respiratory: Negative. Cardiovascular: Negative. Gastrointestinal: Negative for abdominal pain, nausea and vomiting. Genitourinary: Positive for dysuria, frequency and urgency. Musculoskeletal: Positive for back pain (chronic per patient). BP 130/82 Pulse 75 Temp 36.7 C (98.1 F) Resp 22 Wt 100.2 kg (220 lb 12.8 oz) SpO2 97% BMI 40.38 kg/m PAST MEDICAL HISTORY Diagnosis Date ANXIETY STATE NOS 06/07/2005 Carpal tunnel syndrome 06/07/2005 Cholelithiasis 06/17/2012 DEPRESSIVE DISORDER NEC 06/07/2005 Diverticulosis of colon (without mention of hemorrhage) Dizziness and giddiness 02/26/2010 GENERAL OSTEOARTHROSIS 06/07/2005 Goiter, unspecified 12/11/2010 Headache(784.0) 02/26/2010 Chronic. HYPERLIPIDEMIA NEC/NOS 06/07/2005 HYPERTENSION NOS 06/07/2005 IDIO PERIPH NEURPTHY NEC 06/07/2005 Mixed incontinence urge and stress 12/19/2010 Multiple thyroid nodules Nontoxic multinodular goiter 01/01/2011 OBESITY NOS 06/07/2005 Primary localized osteoarthrosis, lower leg 02/13/2010 Spinal stenosis, lumbar 09/22/2015 Dr. Ramírez, severe PAST SURGICAL HISTORY Procedure Laterality Date ARTHRP KNE CONDYLE&PLATU MEDIAL&LAT COMPARTMENTS February2010 Knee replacement, total, Left ARTHRP KNE CONDYLE&PLATU MEDIAL&LAT COMPARTMENTS Knee replacement, total, Right COLONOSCOPY FLX DX W/COLLJ SPEC WHEN PFRMD 06/05/2011 Colonoscopy COLONOSCOPY FLX DX W/COLLJ SPEC WHEN PFRMD N/A 12/04/2016 ESOPHAGOGASTRODUODENOSCOPY TRANSORAL DIAGNOSTIC N/A 12/04/2016 DEVORA FILTER 2019 NEPHRECTOMY PARTIAL 1986 Nephrectomy, partial left (benign) PAST SURGICAL HISTORY OF 06/2018 lumbar burger with wound infection TOTAL ABDOMINAL HYSTERECT W/WO RMVL TUBE OVARY 1985 Hysterectomy, NEISHA ALLERGIES Covid-19 Vaccine, Mrna, [id number], Lnp-S (Moderna); Erythromycin; Latex; Lisinopril; Nafcillin; Norvasc [Amlodipine Besylate]; and Wasps MEDICATIONS HYDROcodone-acetaminophen (NORCO) 5-325 mg per tablet Take 1 tablet by mouth twice daily as needed for pain. acetaminophen 650 mg CR tablet Take 650 mg by mouth every 8 hours as needed. carvedilol (COREG) 12.5 mg tablet Take 1 tablet by mouth twice daily. gabapentin (NEURONTIN) 300 mg capsule Take 1 capsule by mouth every 8 hours for 90 days. hydrALAZINE (APRESOLINE) 25 mg tablet Take 1 tablet by mouth every 12 hours. triamterene-hydroCHLOROthiazide (MAXZIDE-25MG) 37.5-25 mg per tablet Take 1 tablet by mouth once daily. potassium chloride (K-TAB) 10 mEq tablet Take 1 tablet by mouth twice daily. omeprazole (PRILOSEC) 20 mg capsule Take 1 capsule by mouth twice daily. 1/2 hr before meal. famotidine (PEPCID) 20 mg tablet Take 1 tablet by mouth twice daily as needed. levothyroxine (SYNTHROID) 75 mcg tablet Take 1 tablet by mouth daily before breakfast. apixaban (ELIQUIS) 5 mg tab(s) Take 1 tablet by mouth twice daily. EPINEPHrine (EPIPEN) 0.3 mg/0.3 mL auto-injector Use as directed multivitamin/iron/folic acid (CENTRUM ULTRA WOMEN'S ORAL) Take by mouth. FAMILY HISTORY Problem Relation Age of Onset Heart Mother Cancer Mother lung Heart Father other (Other) Father Heart Brother [place], aneurysm Migraines Daughter Macular Degen Maternal Aunt Social History Tobacco Use Smoking status: Never Smokeless tobacco: Never Vaping Use Vaping Use: Never used Substance Use Topics Alcohol use: No Drug use: No Objective Physical Exam Vitals and nursing note reviewed. Constitutional: Appearance: She is obese. Cardiovascular: Rate and Rhythm: Normal rate and regular rhythm. Heart sounds: Normal heart sounds. Pulmonary: Effort: Pulmonary effort is normal. Breath sounds: Normal breath sounds. Abdominal: Tenderness: There is no right CVA tenderness or left CVA tenderness. Skin: General: Skin is warm and dry. Neurological: Mental Status: She is alert. ASSESSMENT/PLAN: 1. Urinary frequency - ICD9: 788.41, ICD10: R35.0 (primary diagnosis) acute - UA positive for nolvia esterase, hematuria, and proteinuria - Send urine for culture - Begin treatment with Macrobid 100 mg BID for 7 days - Patient education for prevention given - UA DIP, URINE (POC) - URINE CULTURE - NITROFURANTOIN MONOHYDRATE & MACROCRYSTAL 100 MG ORAL CAP 2. Feared condition not demonstrated - ICD9: V65.5, ICD10: Z71.1 - patient concerned she will get a yeast infection with antibiotic use. - FLUCONAZOLE 150 MG TABLET - Follow-up with your PCP in 3-5 days if symptoms have not improved or sooner if symptoms worsen - Discussed red flags and need for immediate medical evaluation if any occur. - Discussed supportive care treatment with fluids, rest and analgesia. - Discussed expected course of illness Helen Bonilla APRN.CRISIS COUNSELOR documented in this encounterAcmc Healthcare System08-19-2022 Instructions* Patient Instructions* Viv Lo RN - 05/10/2022 9:52 AM EDT The following instructions are important for you related to your office visit today with the [facility]. Instructions After OFFICE BASED AXILLARY LYMPH NODE BIOPSY Please do not take aspirin or other blood thinners for the next few days. After the procedure, Steri-Strips and a dressing will be placed on your small incision. The dressing may be removed in two tothree days after the procedure. The Steri-Strips should be left in place until they fall off. If you have bleeding from the biopsy site, hold pressure with a clean gauze. If the bleeding continues, contact our office immediately. I recommend taking Advil or Tylenol for the discomfort If you have significant bruising, an ice pack may improve your discomfort. You may take tylenol or ibuprofen as needed for pain. Our office will call you in 7-10 days with the results of your biopsy. If you note any additional difficulties, questions, or concerns, you should contact our office immediately @ [phone] and ask to be transferred to the General Surgery department. documented in this encounterAcmc Healthcare System08-16-2022 History of Present illness Narrative* Zeny Crowder MD - 05/07/2022 9:19 AM EDT HISTORY AND PHYSICAL Lisa Up 1945 REFERRING PHYSICIAN: Melba Escudero MD CHIEF COMPLAINT: Consult (Evaluation and biopsy of left axillary lymph node/) HPI: 76-year-old female with history of swelling in her neck and chest tightness who presented withan abnormal CT scan of the neck and chest. She has generalized adenopathy involving her supraclavicular, bilateral axillary, and subcarinal regions. 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 She is scheduled for removal of her prosthesis because of recurrent infection. She denied history of fever, chills or night sweat. She has unexplained weight loss, or increased fatigue. She has multiple transfusions in the past from her surgery. She denied history of hepatitis or HIV infection. Interim history: She had a COVID vaccine last year and subsequently had an severe anaphylactic reaction. She had an abnormal mammogram of the left breast in February. No breast tenderness, nipple bleeding or retraction. She has no fever, chills or night sweat. She has no early satiety, itching or jaundice. She has no pain under her arms, she has noticed increased swollen glands or axillary adenopathy. The incision on her back is healed with no sign of infection. All medications & allergies updated and reviewed by me. The patient is being seen by me today at the request of Dr. Escudero for my opinion and advice regarding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 (hcc) Enlarged lymph nodes (primary encounter diagnosis). PAST MEDICAL HISTORY Diagnosis Date ANXIETY STATE NOS 06/07/2005 Carpal tunnel syndrome 06/07/2005 Cholelithiasis 06/17/2012 DEPRESSIVE DISORDER NEC 06/07/2005 Diverticulosis of colon (without mention of hemorrhage) Dizziness and giddiness 02/26/2010 GENERAL OSTEOARTHROSIS 06/07/2005 Goiter, unspecified 12/11/2010 Headache(784.0) 02/26/2010 Chronic. HYPERLIPIDEMIA NEC/NOS 06/07/2005 HYPERTENSION NOS 06/07/2005 IDIO PERIPH NEURPTHY NEC 06/07/2005 Mixed incontinence urge and stress 12/19/2010 Multiple thyroid nodules Nontoxic multinodular goiter 01/01/2011 OBESITY NOS 06/07/2005 Primary localized osteoarthrosis, lower leg 02/13/2010 Spinal stenosis, lumbar 09/22/2015 Dr. Ramírez, severe PAST SURGICAL HISTORY Procedure Laterality Date ARTHRP KNE CONDYLE&PLATU MEDIAL&LAT COMPARTMENTS February2010 Knee replacement, total, Left ARTHRP KNE CONDYLE&PLATU MEDIAL&LAT COMPARTMENTS Knee replacement, total, Right COLONOSCOPY FLX DX W/COLLJ SPEC WHEN PFRMD 06/05/2011 Colonoscopy COLONOSCOPY FLX DX W/COLLJ SPEC WHEN PFRMD N/A 12/04/2016 ESOPHAGOGASTRODUODENOSCOPY TRANSORAL DIAGNOSTIC N/A 12/04/2016 DEVORA FILTER 2019 NEPHRECTOMY PARTIAL 1986 Nephrectomy, partial left (benign) PAST SURGICAL HISTORY OF 06/2018 lumbar burger with wound infection TOTAL ABDOMINAL HYSTERECT W/WO RMVL TUBE OVARY 1985 Hysterectomy, NEISHA Current Outpatient Medications Medication Sig HYDROcodone-acetaminophen (NORCO) 5-325 mg per tablet Take 1 tablet by mouth twice daily as needed for pain. acetaminophen 650 mg CR tablet Take 650 mg by mouth every 8 hours as needed. carvedilol (COREG) 12.5 mg tablet Take 1 tablet by mouth twice daily. gabapentin (NEURONTIN) 300 mg capsule Take 1 capsule by mouth every 8 hours for 90 days. hydrALAZINE (APRESOLINE) 25 mg tablet Take 1 tablet by mouth every 12 hours. triamterene-hydroCHLOROthiazide (MAXZIDE-25MG) 37.5-25 mg per tablet Take 1 tablet by mouth once daily. potassium chloride (K-TAB) 10 mEq tablet Take 1 tablet by mouth twice daily. omeprazole (PRILOSEC) 20 mg capsule Take 1 capsule by mouth twice daily. 1/2 hr before meal. famotidine (PEPCID) 20 mg tablet Take 1 tablet by mouth twice daily as needed. levothyroxine (SYNTHROID) 75 mcg tablet Take 1 tablet by mouth daily before breakfast. apixaban (ELIQUIS) 5 mg tab(s) Take 1 tablet by mouth twice daily. EPINEPHrine (EPIPEN) 0.3 mg/0.3 mL auto-injector Use as directed multivitamin/iron/folic acid (CENTRUM ULTRA WOMEN'S ORAL) Take by mouth. No current facility-administered medications for this visit. ALLERGIES: Covid-19 Vaccine, Mrna, [id number], Lnp-S (Moderna); Erythromycin; Latex; Lisinopril; Nafcillin; Norvasc [Amlodipine Besylate]; and Wasps PERSONAL HISTORY: Social History Tobacco Use Smoking status: Never Smokeless tobacco: Never Vaping Use Vaping Use: Never used Substance Use Topics Alcohol use: No Drug use: No FAMILY HISTORY: FAMILY HISTORY Problem Relation Age of Onset Heart Mother Cancer Mother lung Heart Father other (Other) Father Heart Brother [place], aneurysm Migraines Daughter Macular Degen Maternal Aunt REVIEW OF SYMPTOMS: The review of systems data was entered by the nurse and reviewed by mn Nursing Notes: Barbara Puga LPN 05/07/2022 9:05 AM Signed REVIEW OF SYSTEMS: General: The patient notes fatigue, notes weight loss, denies weight gain, notes feeling hot, and notes feelings of cold. Eyes: The patient notes glaucoma, denies eye injury/surgery, wears glasses or contacts. Ear/Nose/Throat: The patient notes allergies, denies hayfever, denies ear infections, and denies bloody noses. Cardiovascular: The patient denies chest pain, denies heart disease, notes high blood pressure,denies cardiac stent, denies prior heart attack, denies irregular heart beat, denies high cholesterol, denies poor circulation, denies heart failure, other cardiac issues, notes claudication, denies cold feet, denies peripheral arterial stent. Respiratory: The patient denies tuberculosis, denies pneumonia, denies frequent cough, denies pulmonary embolism, denies shortness of breath, and denies coughing up blood. Gastrointestinal: The patient denies difficulty swallowing, notes acid reflux, denies ulcers, denies vomiting, denies jaundice/hepatitis, denies gallbladder problems, denies black or tarry stools, notes hemorrhoids, denies bleeding from rectum, denies diverticulitis, notes constipation, denies diarrhea, denies loss of stool control, and denies hernias. Kidney/Bladder: The patient denies kidney stones, notes urine infections, and denies bloody urine. Skin: The patient denies a history of skin cancer, denies bleeding/changing moles, and denies a history of skin rash. Neurologic: The patient denies a history of epilepsy/convulsions, notes headaches, denies head/spinal injuries, and denies stroke/TIA. Psychiatric: The patient denies psychiatric medications, denies depression, and denies voices, denies substance abuse. Endocrine: The patient notes thyroid disorders, denies diabetes, and denies hormonal problems. Hematologic: The patient denies a history of bruising, denies bleeding, and denies anemia, notes blood clots. Infections: The patient denies a history of measles and mumps, denies rheumatic fever, and denies sexually transmitted diseases. Musculoskeletal: The patient notes back pain/injury, notes back problems, denies sciatica, notes knee/foot trouble, notes arthritis, or denies gout. When was patient's last Mammogram screening? 02/2022 Last Colonoscopy: 2016 Barbara Puga LPN PHYSICAL EXAMINATION: General: The patient is 76 year old female, well nourished, well hydrated in no acute distress. Thepatient is oriented to time, place, and person. VITALS: Blood pressure 128/74, pulse 92, temperature 36.3 C (97.3 F), height 157.5 cm (5' 2), weight 100.7 kg (222 lb), SpO2 99 %. HEENT: Normal cephalic, ataumatic, pupils are equally round, sclera are anicteric, mucous membranesare moist, oropharynx is clear. Neck has no masses, asymmetry or lymphadenopathy. Thyroid is unremarkable. Respiratory: Clear to auscultation and percussion. Normal respiratory excursion and pattern. Cardiac: Examination is regular rate and rhythm. Abdominal exam: Soft, nontender, with no palpable masses. No hepatosplenomegaly. No palpable hernias. Rectal exam: exam deferred Extremities: no clubbing, cyanosis or edema. No adenopathy. Other: Palpation of the left axilla revealed the enlarged lymph node in question there is no signs of cellulitis or infection. 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 Escudero via shared medical record. This note will be forwarded to Dr. Sylvia Lizama MD. Return to Clinic: The patient is instructed to follow-up with me after the testing has been completed. Zeny Crowder III, MD documented in this encounterA[facility]-16-[facility]22 Nurse Note* Barbara PugaLAYNE - 05/07/2022 9:02 AM EDT REVIEW OF SYSTEMS: General: The patient notes fatigue, notes weight loss, denies weight gain, notes feeling hot, and notes feelings of cold. Eyes: The patient notes glaucoma, denies eye injury/surgery, wears glasses or contacts. Ear/Nose/Throat: The patient notes allergies, denies hayfever, denies ear infections, and denies bloody noses. Cardiovascular: The patient denies chest pain, denies heart disease, notes high blood pressure,denies cardiac stent, denies prior heart attack, denies irregular heart beat, denies high cholesterol, denies poor circulation, denies heart failure, other cardiac issues, notes claudication, denies cold feet, denies peripheral arterial stent. Respiratory: The patient denies tuberculosis, denies pneumonia, denies frequent cough, denies pulmonary embolism, denies shortness of breath, and denies coughing up blood. Gastrointestinal: The patient denies difficulty swallowing, notes acid reflux, denies ulcers, denies vomiting, denies jaundice/hepatitis, denies gallbladder problems, denies black or tarry stools, notes hemorrhoids, denies bleeding from rectum, denies diverticulitis, notes constipation, denies diarrhea, denies loss of stool control, and denies hernias. Kidney/Bladder: The patient denies kidney stones, notes urine infections, and denies bloody urine. Skin: The patient denies a history of skin cancer, denies bleeding/changing moles, and denies a history of skin rash. Neurologic: The patient denies a history of epilepsy/convulsions, notes headaches, denies head/spinal injuries, and denies stroke/TIA. Psychiatric: The patient denies psychiatric medications, denies depression, and denies voices, denies substance abuse. Endocrine: The patient notes thyroid disorders, denies diabetes, and denies hormonal problems. Hematologic: The patient denies a history of bruising, denies bleeding, and denies anemia, notes blood clots. Infections: The patient denies a history of measles and mumps, denies rheumatic fever, and denies sexually transmitted diseases. Musculoskeletal: The patient notes back pain/injury, notes back problems, denies sciatica, notes knee/foot trouble, notes arthritis, or denies gout. When was patient's last Mammogram screening? 02/2022 Last Colonoscopy: 2016 Barbara Puga LPN documented in this encounterA[facility]08-12-2022 History of Past illness Narrative* Problem Noted Date Resolved Date Abnormal mammogram 05/03/2022 11/27/2022 Hypokalemia 05/30/2021 05/31/2021 Hyponatremia 05/30/2021 05/31/2021 Delirium 05/28/2021 05/31/2021 Angioedema 05/19/2021 05/31/2021 Grayson angina 05/18/2021 05/19/2021 Acute respiratory failure with hypoxia 05/31/2021 Lymphadenopathy, generalized 05/18/202104/2023 Chronic tension-type headache, intractable 07/0711/27/2022 Intractable chronic migraine without aura and without status migrainosus 07/07/2019 11/27/2022 Last Assessment & Plan: Assessment: otc analgesics as needed Cervicalgia 07/07/2019 11/27/2022 Chronic daily headache 07/07/2019 History of lumbar fusion 03/17/2019 023 Last Assessment & Plan: Assessment: h/o Acquired spondylolisthesis of lumbosacral region 03/17/2019 11/27/2022 Lumbosacral stenosis 03/17/2019 11/27/2022 Poor posture 03/17/2019 11/27/2022 Spinal stenosis, lumbar region with neurogenic c laudication 07/18/2017 11/27/2022 Overview: Added automatically from request for surgery [id number] Lumbar spondylosis 07/18/2017 11/27/2022 Overview: Added automatically from request for surgery [id number] Chronic bilateral low back pain with bilateral s ciatica 04/28/2017 11/27/2022 Overview: Added automatically from request for surgery [id number] Obesity due to excess calori es, unspecified obesity severity E66.09 01/02/2017 11/27/2022 Last Assessment & Plan: Assessment: Body mass index is 40.42 kg/m . 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 Primary localized osteoarthrosis, lower leg 01/2112/11/2010 Anxiety state, unspecified 06/07/200512/11 Depressive disorder, not elsewhere classified 12/11/2010 Carpal tunnel syndrome 06/07/2005 1 Obesity, Class III, BMI 40-49.9 (morbid obesity) 06/07/2005 09/12/2021 documented as of this encounter (statuses as of 11/27/2022) [facility] History of Past illness Narrative* Problem Noted Date Resolved Date Abnormal mammogram 05/03/2022 11/27/2022 Hypokalemia 05/30/2021 05/31/2021 Hyponatremia 05/30/2021 05/31/2021 Delirium 05/28/2021 05/31/2021 Angioedema 05/19/2021 05/31/2021 Grayson angina 05/18/2021 05/19/2021 Acute respiratory failure with hypoxia 05/31/2021 Lymphadenopathy, generalized 05/18/202104/2023 Chronic tension-type headache, intractable 07/0711/27/2022 Intractable chronic migraine without aura and without status migrainosus 07/07/2019 11/27/2022 Last Assessment & Plan: Assessment: otc analgesics as needed Cervicalgia 07/07/2019 11/27/2022 Chronic daily headache 07/07/2019 History of lumbar fusion 03/17/2019 023 Last Assessment & Plan: Assessment: h/o Acquired spondylolisthesis of lumbosacral region 03/17/2019 11/27/2022 Lumbosacral stenosis 03/17/2019 11/27/2022 Poor posture 03/17/2019 11/27/2022 Spinal stenosis, lumbar region with neurogenic c laudication 07/18/2017 11/27/2022 Overview: Added automatically from request for surgery [id number] Lumbar spondylosis 07/18/2017 11/27/2022 Overview: Added automatically from request for surgery [id number] Chronic bilateral low back pain with bilateral s ciatica 04/28/2017 11/27/2022 Overview: Added automatically from request for surgery [id number] Obesity due to excess calori es, unspecified obesity severity E66.09 01/02/2017 11/27/2022 Last Assessment & Plan: Assessment: Body mass index is 40.42 kg/m . 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 Primary localized osteoarthrosis, lower leg 01/2112/11/2010 Anxiety state, unspecified 06/07/200512/11 Depressive disorder, not elsewhere classified 12/11/2010 Carpal tunnel syndrome 06/07/2005 1 Obesity, Class III, BMI 40-49.9 (morbid obesity) 06/07/2005 09/12/2021 documented as of this encounter (statuses as of 12/10/2022) [facility] of Past illness Narrative* Problem Noted Date Resolved Date Abnormal mammogram 05/03/2022 11/27/2022 Hypokalemia 05/30/2021 05/31/2021 Hyponatremia 05/30/2021 05/31/2021 Delirium 05/28/2021 05/31/2021 Angioedema 05/19/2021 05/31/2021 Grayson angina 05/18/2021 05/19/2021 Acute respiratory failure with hypoxia 05/31/2021 Lymphadenopathy, generalized 05/18/202104/2023 Chronic tension-type headache, intractable 07/0711/27/2022 Intractable chronic migraine without aura and without status migrainosus 07/07/2019 11/27/2022 Last Assessment & Plan: Assessment: otc analgesics as needed Cervicalgia 07/07/2019 11/27/2022 Chronic daily headache 07/07/2019 History of lumbar fusion 03/17/2019 023 Last Assessment & Plan: Assessment: h/o Acquired spondylolisthesis of lumbosacral region 03/17/2019 11/27/2022 Lumbosacral stenosis 03/17/2019 11/27/2022 Poor posture 03/17/2019 11/27/2022 Spinal stenosis, lumbar region with neurogenic c laudication 07/18/2017 11/27/2022 Overview: Added automatically from request for surgery [id number] Lumbar spondylosis 07/18/2017 11/27/2022 Overview: Added automatically from request for surgery [id number] Chronic bilateral low back pain with bilateral s ciatica 04/28/2017 11/27/2022 Overview: Added automatically from request for surgery [id number] Obesity due to excess calori es, unspecified obesity severity E66.09 01/02/2017 11/27/2022 Last Assessment & Plan: Assessment: Body mass index is 40.42 kg/m . 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 Primary localized osteoarthrosis, lower leg 01/2112/11/2010 Anxiety state, unspecified 06/07/200512/11 Depressive disorder, not elsewhere classified 12/11/2010 Carpal tunnel syndrome 06/07/2005 1 Obesity, Class III, BMI 40-49.9 (morbid obesity) 06/07/2005 09/12/2021 documented as of this encounter (statuses as of 12/17/2022) [facility] of Past illness Narrative* Problem Noted Date Resolved Date Abnormal mammogram 05/03/2022 11/27/2022 Hypokalemia 05/30/2021 05/31/2021 Hyponatremia 05/30/2021 05/31/2021 Delirium 05/28/2021 05/31/2021 Angioedema 05/19/2021 05/31/2021 Grayson angina 05/18/2021 05/19/2021 Acute respiratory failure with hypoxia 05/31/2021 Lymphadenopathy, generalized 05/18/202104/2023 Chronic tension-type headache, intractable 07/0711/27/2022 Intractable chronic migraine without aura and without status migrainosus 07/07/2019 11/27/2022 Last Assessment & Plan: Assessment: otc analgesics as needed Cervicalgia 07/07/2019 11/27/2022 Chronic daily headache 07/07/2019 History of lumbar fusion 03/17/2019 023 Last Assessment & Plan: Assessment: h/o Acquired spondylolisthesis of lumbosacral region 03/17/2019 11/27/2022 Lumbosacral stenosis 03/17/2019 11/27/2022 Poor posture 03/17/2019 11/27/2022 Spinal stenosis, lumbar region with neurogenic c laudication 07/18/2017 11/27/2022 Overview: Added automatically from request for surgery [id number] Lumbar spondylosis 07/18/2017 11/27/2022 Overview: Added automatically from request for surgery [id number] Chronic bilateral low back pain with bilateral s ciatica 04/28/2017 11/27/2022 Overview: Added automatically from request for surgery [id number] Obesity due to excess calori es, unspecified obesity severity E66.09 01/02/2017 11/27/2022 Last Assessment & Plan: Assessment: Body mass index is 40.42 kg/m . 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 Primary localized osteoarthrosis, lower leg 01/2112/11/2010 Anxiety state, unspecified 06/07/200512/11 Depressive disorder, not elsewhere classified 12/11/2010 Carpal tunnel syndrome 06/07/2005 1 Obesity, Class III, BMI 40-49.9 (morbid obesity) 06/07/2005 09/12/2021 documented as of this encounter (statuses as of 12/18/2022) [facility] of Past illness Narrative* Problem Noted Date Resolved Date Abnormal mammogram 05/03/2022 11/27/2022 Hypokalemia 05/30/2021 05/31/2021 Hyponatremia 05/30/2021 05/31/2021 Delirium 05/28/2021 05/31/2021 Angioedema 05/19/2021 05/31/2021 Grayson angina 05/18/2021 05/19/2021 Acute respiratory failure with hypoxia 05/31/2021 Lymphadenopathy, generalized 05/18/202104/2023 Chronic tension-type headache, intractable 07/0711/27/2022 Intractable chronic migraine without aura and without status migrainosus 07/07/2019 11/27/2022 Last Assessment & Plan: Assessment: otc analgesics as needed Cervicalgia 07/07/2019 11/27/2022 Chronic daily headache 07/07/2019 History of lumbar fusion 03/17/2019 023 Last Assessment & Plan: Assessment: h/o Acquired spondylolisthesis of lumbosacral region 03/17/2019 11/27/2022 Lumbosacral stenosis 03/17/2019 11/27/2022 Poor posture 03/17/2019 11/27/2022 Spinal stenosis, lumbar region with neurogenic c laudication 07/18/2017 11/27/2022 Overview: Added automatically from request for surgery [id number] Lumbar spondylosis 07/18/2017 11/27/2022 Overview: Added automatically from request for surgery [id number] Chronic bilateral low back pain with bilateral s ciatica 04/28/2017 11/27/2022 Overview: Added automatically from request for surgery [id number] Obesity due to excess calori es, unspecified obesity severity E66.09 01/02/2017 11/27/2022 Last Assessment & Plan: Assessment: Body mass index is 40.42 kg/m . 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 Primary localized osteoarthrosis, lower leg 01/2112/11/2010 Anxiety state, unspecified 06/07/200512/11 Depressive disorder, not elsewhere classified 12/11/2010 Carpal tunnel syndrome 06/07/2005 1 Obesity, Class III, BMI 40-49.9 (morbid obesity) 06/07/2005 09/12/2021 documented as of this encounter (statuses as of 12/25/2022) [facility] of Past illness Narrative* Problem Noted Date Resolved Date Abnormal mammogram 05/03/2022 11/27/2022 Hypokalemia 05/30/2021 05/31/2021 Hyponatremia 05/30/2021 05/31/2021 Delirium 05/28/2021 05/31/2021 Angioedema 05/19/2021 05/31/2021 Grayson angina 05/18/2021 05/19/2021 Acute respiratory failure with hypoxia 05/31/2021 Lymphadenopathy, generalized 05/18/202104/2023 Chronic tension-type headache, intractable 07/0711/27/2022 Intractable chronic migraine without aura and without status migrainosus 07/07/2019 11/27/2022 Last Assessment & Plan: Assessment: otc analgesics as needed Cervicalgia 07/07/2019 11/27/2022 Chronic daily headache 07/07/2019 History of lumbar fusion 03/17/2019 023 Last Assessment & Plan: Assessment: h/o Acquired spondylolisthesis of lumbosacral region 03/17/2019 11/27/2022 Lumbosacral stenosis 03/17/2019 11/27/2022 Poor posture 03/17/2019 11/27/2022 Spinal stenosis, lumbar region with neurogenic c laudication 07/18/2017 11/27/2022 Overview: Added automatically from request for surgery [id number] Lumbar spondylosis 07/18/2017 11/27/2022 Overview: Added automatically from request for surgery [id number] Chronic bilateral low back pain with bilateral s ciatica 04/28/2017 11/27/2022 Overview: Added automatically from request for surgery [id number] Obesity due to excess calori es, unspecified obesity severity E66.09 01/02/2017 11/27/2022 Last Assessment & Plan: Assessment: Body mass index is 40.42 kg/m . Chronic bilateral low back pain with sciatica 11/27/2022 Chronic left-sided thoracic back pain 12/28/2015 11/27/2022 Blepharitis of both eyes 12/27/2015 016 Meibomianitis 12/14/2015 01/03/2016 Meibomitis 09/06/2015 11/02/2015 Back pain 04/06/2015 11/27/2022 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 05/13/2014 08/16/2015 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 05/13/2014 08/16/2015 Other and combined forms of senile cataract - Benito th Eyes 05/13/2014 08/16/2015 Tear film insufficiency, unspecified - Both Eyes 05/13/2014 01/03/2016 Candidiasis, intertrigo 06/08/2013 10/16/19 Cholelithiasis 06/17/2012 06/24/2013 Goiter, unspecified 12/11/2010 01/15/2012 Dizziness and giddiness 02/26/2010 12/12/19 11 Headache(784.0) 02/26/2010 11/27/2022 Overview: Chronic. Primary localized osteoarthrosis, lower leg 01/2112/11/2010 Anxiety state, unspecified 06/07/200512/11 Depressive disorder, not elsewhere classified 12/11/2010 Carpal tunnel syndrome 06/07/2005 1 Obesity, Class III, BMI 40-49.9 (morbid obesity) 06/07/2005 09/12/2021 documented as of this encounter (statuses as of 12/25/2022) [facility]-12[facility]22 History of Past illness Narrative* Problem Noted Date Resolved Date Abnormal mammogram 05/03/2022 11/27/2022 Hypokalemia 05/30/2021 05/31/2021 Hyponatremia 05/30/2021 05/31/2021 Delirium 05/28/2021 05/31/2021 Angioedema 05/19/2021 05/31/2021 Grayson angina 05/18/2021 05/19/2021 Acute respiratory failure with hypoxia 05/31/2021 Lymphadenopathy, generalized 05/18/202104/2023 Chronic tension-type headache, intractable 07/0711/27/2022 Intractable chronic migraine without aura and without status migrainosus 07/07/2019 11/27/2022 Last Assessment & Plan: Assessment: otc analgesics as needed Cervicalgia 07/07/2019 11/27/2022 Chronic daily headache 07/07/2019 History of lumbar fusion 03/17/2019 023 Last Assessment & Plan: Assessment: h/o Acquired spondylolisthesis of lumbosacral region 03/17/2019 11/27/2022 Lumbosacral stenosis 03/17/2019 11/27/2022 Poor posture 03/17/2019 11/27/2022 Spinal stenosis, lumbar region with neurogenic c laudication 07/18/2017 11/27/2022 Overview: Added automatically from request for surgery [id number] Lumbar spondylosis 07/18/2017 11/27/2022 Overview: Added automatically from request for surgery [id number] Chronic bilateral low back pain with bilateral s ciatica 04/28/2017 11/27/2022 Overview: Added automatically from request for surgery [id number] Obesity due to excess calori es, unspecified obesity severity E66.09 01/02/2017 11/27/2022 Last Assessment & Plan: Assessment: Body mass index is 40.42 kg/m . 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 Primary localized osteoarthrosis, lower leg 01/2112/11/2010 Anxiety state, unspecified 06/07/200512/11 Depressive disorder, not elsewhere classified 12/11/2010 Carpal tunnel syndrome 06/07/2005 1 Obesity, Class III, BMI 40-49.9 (morbid obesity) 06/07/2005 09/12/2021 documented as of this encounter (statuses as of 12/25/2022) [facility] History of Past illness Narrative* Problem Noted Date Resolved Date Abnormal mammogram 05/03/2022 11/27/2022 Hypokalemia 05/30/2021 05/31/2021 Hyponatremia 05/30/2021 05/31/2021 Delirium 05/28/2021 05/31/2021 Angioedema 05/19/2021 05/31/2021 Grayson angina 05/18/2021 05/19/2021 Acute respiratory failure with hypoxia 05/31/2021 Lymphadenopathy, generalized 05/18/202104/2023 Chronic tension-type headache, intractable 07/0711/27/2022 Intractable chronic migraine without aura and without status migrainosus 07/07/2019 11/27/2022 Last Assessment & Plan: Assessment: otc analgesics as needed Cervicalgia 07/07/2019 11/27/2022 Chronic daily headache 07/07/2019 History of lumbar fusion 03/17/2019 023 Last Assessment & Plan: Assessment: h/o Acquired spondylolisthesis of lumbosacral region 03/17/2019 11/27/2022 Lumbosacral stenosis 03/17/2019 11/27/2022 Poor posture 03/17/2019 11/27/2022 Spinal stenosis, lumbar region with neurogenic c laudication 07/18/2017 11/27/2022 Overview: Added automatically from request for surgery [id number] Lumbar spondylosis 07/18/2017 11/27/2022 Overview: Added automatically from request for surgery [id number] Chronic bilateral low back pain with bilateral s ciatica 04/28/2017 11/27/2022 Overview: Added automatically from request for surgery [id number] Obesity due to excess calori es, unspecified obesity severity E66.09 01/02/2017 11/27/2022 Last Assessment & Plan: Assessment: Body mass index is 40.42 kg/m . 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 Primary localized osteoarthrosis, lower leg 01/2112/11/2010 Anxiety state, unspecified 06/07/200512/11 Depressive disorder, not elsewhere classified 12/11/2010 Carpal tunnel syndrome 06/07/2005 1 Obesity, Class III, BMI 40-49.9 (morbid obesity) 06/07/2005 09/12/2021 documented as of this encounter (statuses as of 12/31/2022) [facility] History of Past illness Narrative* Problem Noted Date Resolved Date Abnormal mammogram 05/03/2022 11/27/2022 Hypokalemia 05/30/2021 05/31/2021 Hyponatremia 05/30/2021 05/31/2021 Delirium 05/28/2021 05/31/2021 Angioedema 05/19/2021 05/31/2021 Grayson angina 05/18/2021 05/19/2021 Acute respiratory failure with hypoxia 05/31/2021 Lymphadenopathy, generalized 05/18/202104/2023 Chronic tension-type headache, intractable 07/0711/27/2022 Intractable chronic migraine without aura and without status migrainosus 07/07/2019 11/27/2022 Last Assessment & Plan: Assessment: otc analgesics as needed Cervicalgia 07/07/2019 11/27/2022 Chronic daily headache 07/07/2019 History of lumbar fusion 03/17/2019 023 Last Assessment & Plan: Assessment: h/o Acquired spondylolisthesis of lumbosacral region 03/17/2019 11/27/2022 Lumbosacral stenosis 03/17/2019 11/27/2022 Poor posture 03/17/2019 11/27/2022 Spinal stenosis, lumbar region with neurogenic c laudication 07/18/2017 11/27/2022 Overview: Added automatically from request for surgery [id number] Lumbar spondylosis 07/18/2017 11/27/2022 Overview: Added automatically from request for surgery [id number] Chronic bilateral low back pain with bilateral s ciatica 04/28/2017 11/27/2022 Overview: Added automatically from request for surgery [id number] Obesity due to excess calori es, unspecified obesity severity E66.09 01/02/2017 11/27/2022 Last Assessment & Plan: Assessment: Body mass index is 40.42 kg/m . 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 Primary localized osteoarthrosis, lower leg 01/2112/11/2010 Anxiety state, unspecified 06/07/200512/11 Depressive disorder, not elsewhere classified 12/11/2010 Carpal tunnel syndrome 06/07/2005 1 Obesity, Class III, BMI 40-49.9 (morbid obesity) 06/07/2005 09/12/2021 documented as of this encounter (statuses as of 01/02/2023) [facility] History of Past illness Narrative* Problem Noted Date Resolved Date Abnormal mammogram 05/03/2022 11/27/2022 Hypokalemia 05/30/2021 05/31/2021 Hyponatremia 05/30/2021 05/31/2021 Delirium 05/28/2021 05/31/2021 Angioedema 05/19/2021 05/31/2021 Grayson angina 05/18/2021 05/19/2021 Acute respiratory failure with hypoxia 05/31/2021 Lymphadenopathy, generalized 05/18/202104/2023 Chronic tension-type headache, intractable 07/0711/27/2022 Intractable chronic migraine without aura and without status migrainosus 07/07/2019 11/27/2022 Last Assessment & Plan: Assessment: otc analgesics as needed Cervicalgia 07/07/2019 11/27/2022 Chronic daily headache 07/07/2019 History of lumbar fusion 03/17/2019 023 Last Assessment & Plan: Assessment: h/o Acquired spondylolisthesis of lumbosacral region 03/17/2019 11/27/2022 Lumbosacral stenosis 03/17/2019 11/27/2022 Poor posture 03/17/2019 11/27/2022 Spinal stenosis, lumbar region with neurogenic c laudication 07/18/2017 11/27/2022 Overview: Added automatically from request for surgery [id number] Lumbar spondylosis 07/18/2017 11/27/2022 Overview: Added automatically from request for surgery [id number] Chronic bilateral low back pain with bilateral s ciatica 04/28/2017 11/27/2022 Overview: Added automatically from request for surgery [id number] Obesity due to excess calori es, unspecified obesity severity E66.09 01/02/2017 11/27/2022 Last Assessment & Plan: Assessment: Body mass index is 40.42 kg/m . 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 Primary localized osteoarthrosis, lower leg 01/2112/11/2010 Anxiety state, unspecified 06/07/200512/11 Depressive disorder, not elsewhere classified 12/11/2010 Carpal tunnel syndrome 06/07/2005 1 Obesity, Class III, BMI 40-49.9 (morbid obesity) 06/07/2005 09/12/2021 documented as of this encounter (statuses as of 02/21/2023) [facility] History of Past illness Narrative* Problem Noted Date Resolved Date Abnormal mammogram 05/03/2022 11/27/2022 Hypokalemia 05/30/2021 05/31/2021 Hyponatremia 05/30/2021 05/31/2021 Delirium 05/28/2021 05/31/2021 Angioedema 05/19/2021 05/31/2021 Grayson angina 05/18/2021 05/19/2021 Acute respiratory failure with hypoxia 05/31/2021 Lymphadenopathy, generalized 05/18/202104/2023 Chronic tension-type headache, intractable 07/0711/27/2022 Intractable chronic migraine without aura and without status migrainosus 07/07/2019 11/27/2022 Last Assessment & Plan: Assessment: otc analgesics as needed Cervicalgia 07/07/2019 11/27/2022 Chronic daily headache 07/07/2019 History of lumbar fusion 03/17/2019 023 Last Assessment & Plan: Assessment: h/o Acquired spondylolisthesis of lumbosacral region 03/17/2019 11/27/2022 Lumbosacral stenosis 03/17/2019 11/27/2022 Poor posture 03/17/2019 11/27/2022 Spinal stenosis, lumbar region with neurogenic c laudication 07/18/2017 11/27/2022 Overview: Added automatically from request for surgery [id number] Lumbar spondylosis 07/18/2017 11/27/2022 Overview: Added automatically from request for surgery [id number] Chronic bilateral low back pain with bilateral s ciatica 04/28/2017 11/27/2022 Overview: Added automatically from request for surgery [id number] Obesity due to excess calori es, unspecified obesity severity E66.09 01/02/2017 11/27/2022 Last Assessment & Plan: Assessment: Body mass index is 40.42 kg/m . 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 Primary localized osteoarthrosis, lower leg 01/2112/11/2010 Anxiety state, unspecified 06/07/200512/11 Depressive disorder, not elsewhere classified 12/11/2010 Carpal tunnel syndrome 06/07/2005 1 Obesity, Class III, BMI 40-49.9 (morbid obesity) 06/07/2005 09/12/2021 documented as of this encounter (statuses as of 02/21/2023) [facility] History of Past illness Narrative* Problem Noted Date Resolved Date Abnormal mammogram 05/03/2022 11/27/2022 Hypokalemia 05/30/2021 05/31/2021 Hyponatremia 05/30/2021 05/31/2021 Delirium 05/28/2021 05/31/2021 Angioedema 05/19/2021 05/31/2021 Grayson angina 05/18/2021 05/19/2021 Acute respiratory failure with hypoxia 05/31/2021 Lymphadenopathy, generalized 05/18/202104/2023 Chronic tension-type headache, intractable 07/0711/27/2022 Intractable chronic migraine without aura and without status migrainosus 07/07/2019 11/27/2022 Last Assessment & Plan: Assessment: otc analgesics as needed Cervicalgia 07/07/2019 11/27/2022 Chronic daily headache 07/07/2019 History of lumbar fusion 03/17/2019 023 Last Assessment & Plan: Assessment: h/o Acquired spondylolisthesis of lumbosacral region 03/17/2019 11/27/2022 Lumbosacral stenosis 03/17/2019 11/27/2022 Poor posture 03/17/2019 11/27/2022 Spinal stenosis, lumbar region with neurogenic c laudication 07/18/2017 11/27/2022 Overview: Added automatically from request for surgery [id number] Lumbar spondylosis 07/18/2017 11/27/2022 Overview: Added automatically from request for surgery [id number] Chronic bilateral low back pain with bilateral s ciatica 04/28/2017 11/27/2022 Overview: Added automatically from request for surgery [id number] Obesity due to excess calori es, unspecified obesity severity E66.09 01/02/2017 11/27/2022 Last Assessment & Plan: Assessment: Body mass index is 40.42 kg/m . 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 Primary localized osteoarthrosis, lower leg 01/2112/11/2010 Anxiety state, unspecified 06/07/200512/11 Depressive disorder, not elsewhere classified 12/11/2010 Carpal tunnel syndrome 06/07/2005 1 Obesity, Class III, BMI 40-49.9 (morbid obesity) 06/07/2005 09/12/2021 documented as of this encounter (statuses as of 02/25/2023) [facility] History of Past illness Narrative* Problem Noted Date Resolved Date Abnormal mammogram 05/03/2022 11/27/2022 Hypokalemia 05/30/2021 05/31/2021 Hyponatremia 05/30/2021 05/31/2021 Delirium 05/28/2021 05/31/2021 Angioedema 05/19/2021 05/31/2021 Grayson angina 05/18/2021 05/19/2021 Acute respiratory failure with hypoxia 05/31/2021 Lymphadenopathy, generalized 05/18/202104/2023 Chronic tension-type headache, intractable 07/0711/27/2022 Intractable chronic migraine without aura and without status migrainosus 07/07/2019 11/27/2022 Last Assessment & Plan: Assessment: otc analgesics as needed Cervicalgia 07/07/2019 11/27/2022 Chronic daily headache 07/07/2019 History of lumbar fusion 03/17/2019 023 Last Assessment & Plan: Assessment: h/o Acquired spondylolisthesis of lumbosacral region 03/17/2019 11/27/2022 Lumbosacral stenosis 03/17/2019 11/27/2022 Poor posture 03/17/2019 11/27/2022 Spinal stenosis, lumbar region with neurogenic c laudication 07/18/2017 11/27/2022 Overview: Added automatically from request for surgery [id number] Lumbar spondylosis 07/18/2017 11/27/2022 Overview: Added automatically from request for surgery [id number] Chronic bilateral low back pain with bilateral s ciatica 04/28/2017 11/27/2022 Overview: Added automatically from request for surgery [id number] Obesity due to excess calori es, unspecified obesity severity E66.09 01/02/2017 11/27/2022 Last Assessment & Plan: Assessment: Body mass index is 40.42 kg/m . Chronic bilateral low back pain with sciatica 11/27/2022 Chronic left-sided thoracic back pain 12/28/2015 11/27/2022 Blepharitis of both eyes 12/27/2015 016 Meibomianitis 12/14/2015 01/03/2016 Meibomitis 09/06/2015 11/02/2015 Back pain 04/06/2015 11/27/2022 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 05/13/2014 08/16/2015 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 05/13/2014 08/16/2015 Other and combined forms of senile cataract - Benito th Eyes 05/13/2014 08/16/2015 Tear film insufficiency, unspecified - Both Eyes 05/13/2014 01/03/2016 Candidiasis, intertrigo 06/08/2013 10/16/19 Cholelithiasis 06/17/2012 06/24/2013 Goiter, unspecified 12/11/2010 01/15/2012 Dizziness and giddiness 02/26/2010 12/12/19 11 Headache(784.0) 02/26/2010 11/27/2022 Overview: Chronic. Primary localized osteoarthrosis, lower leg 01/2112/11/2010 Anxiety state, unspecified 06/07/200512/11 Depressive disorder, not elsewhere classified 12/11/2010 Carpal tunnel syndrome 06/07/2005 1 Obesity, Class III, BMI 40-49.9 (morbid obesity) 06/07/2005 09/12/2021 documented as of this encounter (statuses as of 03/10/2023) [facility] History of Past illness Narrative* Problem Noted Date Resolved Date Abnormal mammogram 05/03/2022 11/27/2022 Hypokalemia 05/30/2021 05/31/2021 Hyponatremia 05/30/2021 05/31/2021 Delirium 05/28/2021 05/31/2021 Angioedema 05/19/2021 05/31/2021 Grayson angina 05/18/2021 05/19/2021 Acute respiratory failure with hypoxia 05/31/2021 Lymphadenopathy, generalized 05/18/202104/2023 Chronic tension-type headache, intractable 07/0711/27/2022 Intractable chronic migraine without aura and without status migrainosus 07/07/2019 11/27/2022 Last Assessment & Plan: Assessment: otc analgesics as needed Cervicalgia 07/07/2019 11/27/2022 Chronic daily headache 07/07/2019 History of lumbar fusion 03/17/2019 023 Last Assessment & Plan: Assessment: h/o Acquired spondylolisthesis of lumbosacral region 03/17/2019 11/27/2022 Lumbosacral stenosis 03/17/2019 11/27/2022 Poor posture 03/17/2019 11/27/2022 Spinal stenosis, lumbar region with neurogenic c laudication 07/18/2017 11/27/2022 Overview: Added automatically from request for surgery [id number] Lumbar spondylosis 07/18/2017 11/27/2022 Overview: Added automatically from request for surgery [id number] Chronic bilateral low back pain with bilateral s ciatica 04/28/2017 11/27/2022 Overview: Added automatically from request for surgery [id number] Obesity due to excess calori es, unspecified obesity severity E66.09 01/02/2017 11/27/2022 Last Assessment & Plan: Assessment: Body mass index is 40.42 kg/m . 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 Primary localized osteoarthrosis, lower leg 01/2112/11/2010 Anxiety state, unspecified 06/07/200512/11 Depressive disorder, not elsewhere classified 12/11/2010 Carpal tunnel syndrome 06/07/2005 1 Obesity, Class III, BMI 40-49.9 (morbid obesity) 06/07/2005 09/12/2021 documented as of this encounter (statuses as of 03/24/2023) [facility] History of Past illness Narrative* Problem Noted Date Resolved Date Abnormal mammogram 05/03/2022 11/27/2022 Hypokalemia 05/30/2021 05/31/2021 Hyponatremia 05/30/2021 05/31/2021 Delirium 05/28/2021 05/31/2021 Angioedema 05/19/2021 05/31/2021 Grayson angina 05/18/2021 05/19/2021 Acute respiratory failure with hypoxia 05/31/2021 Lymphadenopathy, generalized 05/18/202104/2023 Chronic tension-type headache, intractable 07/0711/27/2022 Intractable chronic migraine without aura and without status migrainosus 07/07/2019 11/27/2022 Last Assessment & Plan: Assessment: otc analgesics as needed Cervicalgia 07/07/2019 11/27/2022 Chronic daily headache 07/07/2019 History of lumbar fusion 03/17/2019 023 Last Assessment & Plan: Assessment: h/o Acquired spondylolisthesis of lumbosacral region 03/17/2019 11/27/2022 Lumbosacral stenosis 03/17/2019 11/27/2022 Poor posture 03/17/2019 11/27/2022 Spinal stenosis, lumbar region with neurogenic c laudication 07/18/2017 11/27/2022 Overview: Added automatically from request for surgery [id number] Lumbar spondylosis 07/18/2017 11/27/2022 Overview: Added automatically from request for surgery [id number] Chronic bilateral low back pain with bilateral s ciatica 04/28/2017 11/27/2022 Overview: Added automatically from request for surgery [id number] Obesity due to excess calori es, unspecified obesity severity E66.09 01/02/2017 11/27/2022 Last Assessment & Plan: Assessment: Body mass index is 40.42 kg/m . Chronic bilateral low back pain with sciatica 11/27/2022 Chronic left-sided thoracic back pain 12/28/2015 11/27/2022 Blepharitis of both eyes 12/27/2015 016 Meibomianitis 12/14/2015 01/03/2016 Meibomitis 09/06/2015 11/02/2015 Back pain 04/06/2015 11/27/2022 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 05/13/2014 08/16/2015 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 05/13/2014 08/16/2015 Other and combined forms of senile cataract - [place] th Eyes 05/13/2014 08/16/2015 Tear film insufficiency, unspecified - Both Eyes 05/13/2014 01/03/2016 Candidiasis, intertrigo 06/08/2013 10/16/19 Cholelithiasis 06/17/2012 06/24/2013 Goiter, unspecified 12/11/2010 01/15/2012 Dizziness and giddiness 02/26/2010 12/12/19 11 Headache(784.0) 02/26/2010 11/27/2022 Overview: Chronic. Primary localized osteoarthrosis, lower leg 01/2112/11/2010 Anxiety state, unspecified 06/07/200512/11 Depressive disorder, not elsewhere classified 12/11/2010 Carpal tunnel syndrome 06/07/2005 1 Obesity, Class III, BMI 40-49.9 (morbid obesity) 06/07/2005 09/12/2021 documented as of this encounter (statuses as of 03/27/2023) [facility] History of Past illness Narrative* Problem Noted Date Diagnosed Date Resolved Date Abnormal mammogram 05/03/2022 Hypokalemia 05/30/2021 05/31/2021 Hyponatremia 05/30/2021 05/31/2021 Delirium 05/28/2021 05/31/2021 Angioedema 05/19/2021 05/31/2021 Mild protein-calorie malnutrition 05/19/2021 04/03/2023 Grayson angina 05/18/2021 05/19/2021 Acute respiratory failure with hypoxia 05/18/2021 05/31/2021 Lymphadenopathy, generalized 05/18/2021 11/27/2022 Chronic tension-type headache, intractable 07/07/2019 11/27/2022 Intractable chronic migraine without aura and without status migrainosus 07/07/2019 11/27/2022 Last Assessment & Plan: Assessment: otc analgesics as needed Cervicalgia 07/07/2019 11/27/2022 Chronic daily headache 07/07/201911/27 History of lumbar fusion 03/17/201904/2023 Last Assessment & Plan: Assessment: h/o Acquired spondylolisthesis o f lumbosacral region 03/17/2019 11/27/2022 Lumbosacral stenosis 03/17/2019 023 Poor posture 03/17/2019 11/27/2022 Wound infection after surgery 11/24/2018 04/03/2023 Overview: Had sepsis and multiple admissions after lumbar burger 07/09 Had wound vac and IV antibiotics Spinal stenosis, lumbar cydney on with neurogenic claudication 07/18/2017 11/27/2022 Overview: Added automatically from request for surgery [id number] Lumbar spondylosis 07/18/2017 Overview: Added automatically from request for surgery [id number] Chronic bilateral low back p ain with bilateral sciatica 04/28/2017 11/27/2022 Overview: Added automatically from request for surgery [id number] Obesity due to excess calori es, unspecified obesity severity E66.09 01/02/2017 11/27/2022 Last Assessment & Plan: Assessment: Body mass index is 40.42 kg/m . 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 Primary localized osteoarthrosis, lower leg 02/13/2010 12/11/2010 Anxiety state, unspecified 06/07/2005 0 12/11/2010 Depressive disorder, not elsewhere classified 06/07/20 05 12/11/2010 Carpal tunnel syndrome 06/07/200512/11 documented as of this encounter (statuses as of 04/03/2023) [facility] History of Past illness Narrative* Problem Noted Date Diagnosed Date Resolved Date Abnormal mammogram 05/03/2022 Hypokalemia 05/30/2021 05/31/2021 Hyponatremia 05/30/2021 05/31/2021 Delirium 05/28/2021 05/31/2021 Angioedema 05/19/2021 05/31/2021 Mild protein-calorie malnutrition 05/19/2021 04/03/2023 Grayson angina 05/18/2021 05/19/2021 Acute respiratory failure with hypoxia 05/18/2021 05/31/2021 Lymphadenopathy, generalized 05/18/2021 11/27/2022 Chronic tension-type headache, intractable 07/07/2019 11/27/2022 Intractable chronic migraine without aura and without status migrainosus 07/07/2019 11/27/2022 Last Assessment & Plan: Assessment: otc analgesics as needed Cervicalgia 07/07/2019 11/27/2022 Chronic daily headache 07/07/201911/27 History of lumbar fusion 03/17/201904/2023 Last Assessment & Plan: Assessment: h/o Acquired spondylolisthesis o f lumbosacral region 03/17/2019 11/27/2022 Lumbosacral stenosis 03/17/2019 023 Poor posture 03/17/2019 11/27/2022 Wound infection after surgery 11/24/2018 04/03/2023 Overview: Had sepsis and multiple admissions after lumbar burger 07/09 Had wound vac and IV antibiotics Spinal stenosis, lumbar cydney on with neurogenic claudication 07/18/2017 11/27/2022 Overview: Added automatically from request for surgery [id number] Lumbar spondylosis 07/18/2017 Overview: Added automatically from request for surgery [id number] Chronic bilateral low back p ain with bilateral sciatica 04/28/2017 11/27/2022 Overview: Added automatically from request for surgery [id number] Obesity due to excess calori es, unspecified obesity severity E66.09 01/02/2017 11/27/2022 Last Assessment & Plan: Assessment: Body mass index is 40.42 kg/m . 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 Primary localized osteoarthrosis, lower leg 02/13/2010 12/11/2010 Anxiety state, unspecified 06/07/2005 0 12/11/2010 Depressive disorder, not elsewhere classified 06/07/20 05 12/11/2010 Carpal tunnel syndrome 06/07/200512/11 documented as of this encounter (statuses as of 04/18/2023) [facility] History of Past illness Narrative* Problem Noted Date Diagnosed Date Resolved Date Abnormal mammogram 05/03/2022 Hypokalemia 05/30/2021 05/31/2021 Hyponatremia 05/30/2021 05/31/2021 Delirium 05/28/2021 05/31/2021 Angioedema 05/19/2021 05/31/2021 Mild protein-calorie malnutrition 05/19/2021 04/03/2023 Grayson angina 05/18/2021 05/19/2021 Acute respiratory failure with hypoxia 05/18/2021 05/31/2021 Lymphadenopathy, generalized 05/18/2021 11/27/2022 Chronic tension-type headache, intractable 07/07/2019 11/27/2022 Intractable chronic migraine without aura and without status migrainosus 07/07/2019 11/27/2022 Last Assessment & Plan: Assessment: otc analgesics as needed Cervicalgia 07/07/2019 11/27/2022 Chronic daily headache 07/07/201911/27 History of lumbar fusion 03/17/201904/2023 Last Assessment & Plan: Assessment: h/o Acquired spondylolisthesis o f lumbosacral region 03/17/2019 11/27/2022 Lumbosacral stenosis 03/17/2019 023 Poor posture 03/17/2019 11/27/2022 Wound infection after surgery 11/24/2018 04/03/2023 Overview: Had sepsis and multiple admissions after lumbar burger 07/09 Had wound vac and IV antibiotics Spinal stenosis, lumbar cydney on with neurogenic claudication 07/18/2017 11/27/2022 Overview: Added automatically from request for surgery [id number] Lumbar spondylosis 07/18/2017 Overview: Added automatically from request for surgery [id number] Chronic bilateral low back p ain with bilateral sciatica 04/28/2017 11/27/2022 Overview: Added automatically from request for surgery [id number] Obesity due to excess calori es, unspecified obesity severity E66.09 01/02/2017 11/27/2022 Last Assessment & Plan: Assessment: Body mass index is 40.42 kg/m . 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 Primary localized osteoarthrosis, lower leg 02/13/2010 12/11/2010 Anxiety state, unspecified 06/07/2005 0 12/11/2010 Depressive disorder, not elsewhere classified 06/07/20 05 12/11/2010 Carpal tunnel syndrome 06/07/200512/11 documented as of this encounter (statuses as of 04/18/2023) [facility] History of Past illness Narrative* Problem Noted Date Diagnosed Date Resolved Date Abnormal mammogram 05/03/2022 Hypokalemia 05/30/2021 05/31/2021 Hyponatremia 05/30/2021 05/31/2021 Delirium 05/28/2021 05/31/2021 Angioedema 05/19/2021 05/31/2021 Mild protein-calorie malnutrition 05/19/2021 04/03/2023 Grayson angina 05/18/2021 05/19/2021 Acute respiratory failure with hypoxia 05/18/2021 05/31/2021 Lymphadenopathy, generalized 05/18/2021 11/27/2022 Chronic tension-type headache, intractable 07/07/2019 11/27/2022 Intractable chronic migraine without aura and without status migrainosus 07/07/2019 11/27/2022 Last Assessment & Plan: Assessment: otc analgesics as needed Cervicalgia 07/07/2019 11/27/2022 Chronic daily headache 07/07/201911/27 History of lumbar fusion 03/17/201904/2023 Last Assessment & Plan: Assessment: h/o Acquired spondylolisthesis o f lumbosacral region 03/17/2019 11/27/2022 Lumbosacral stenosis 03/17/2019 023 Poor posture 03/17/2019 11/27/2022 Wound infection after surgery 11/24/2018 04/03/2023 Overview: Had sepsis and multiple admissions after lumbar burger 07/09 Had wound vac and IV antibiotics Spinal stenosis, lumbar cydney on with neurogenic claudication 07/18/2017 11/27/2022 Overview: Added automatically from request for surgery [id number] Lumbar spondylosis 07/18/2017 Overview: Added automatically from request for surgery [id number] Chronic bilateral low back p ain with bilateral sciatica 04/28/2017 11/27/2022 Overview: Added automatically from request for surgery [id number] Obesity due to excess calori es, unspecified obesity severity E66.09 01/02/2017 11/27/2022 Last Assessment & Plan: Assessment: Body mass index is 40.42 kg/m . 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 Primary localized osteoarthrosis, lower leg 02/13/2010 12/11/2010 Anxiety state, unspecified 06/07/2005 0 12/11/2010 Depressive disorder, not elsewhere classified 06/07/20 05 12/11/2010 Carpal tunnel syndrome 06/07/200512/11 documented as of this encounter (statuses as of 04/25/2023) [facility] History of Past illness Narrative* Problem Noted Date Diagnosed Date Resolved Date Abnormal mammogram 05/03/2022 Hypokalemia 05/30/2021 05/31/2021 Hyponatremia 05/30/2021 05/31/2021 Delirium 05/28/2021 05/31/2021 Angioedema 05/19/2021 05/31/2021 Mild protein-calorie malnutrition 05/19/2021 04/03/2023 Grayson angina 05/18/2021 05/19/2021 Acute respiratory failure with hypoxia 05/18/2021 05/31/2021 Lymphadenopathy, generalized 05/18/2021 11/27/2022 Chronic tension-type headache, intractable 07/07/2019 11/27/2022 Intractable chronic migraine without aura and without status migrainosus 07/07/2019 11/27/2022 Last Assessment & Plan: Assessment: otc analgesics as needed Cervicalgia 07/07/2019 11/27/2022 Chronic daily headache 07/07/201911/27 History of lumbar fusion 03/17/201904/2023 Last Assessment & Plan: Assessment: h/o Acquired spondylolisthesis o f lumbosacral region 03/17/2019 11/27/2022 Lumbosacral stenosis 03/17/2019 023 Poor posture 03/17/2019 11/27/2022 Wound infection after surgery 11/24/2018 04/03/2023 Overview: Had sepsis and multiple admissions after lumbar burger 07/09 Had wound vac and IV antibiotics Spinal stenosis, lumbar cydney on with neurogenic claudication 07/18/2017 11/27/2022 Overview: Added automatically from request for surgery [id number] Lumbar spondylosis 07/18/2017 Overview: Added automatically from request for surgery [id number] Chronic bilateral low back p ain with bilateral sciatica 04/28/2017 11/27/2022 Overview: Added automatically from request for surgery [id number] Obesity due to excess calori es, unspecified obesity severity E66.09 01/02/2017 11/27/2022 Last Assessment & Plan: Assessment: Body mass index is 40.42 kg/m . 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 Primary localized osteoarthrosis, lower leg 02/13/2010 12/11/2010 Anxiety state, unspecified 06/07/2005 0 12/11/2010 Depressive disorder, not elsewhere classified 06/07/20 05 12/11/2010 Carpal tunnel syndrome 06/07/200512/11 documented as of this encounter (statuses as of 04/30/2023) [facility] History of Past illness Narrative* Problem Noted Date Diagnosed Date Resolved Date Abnormal mammogram 05/03/2022 Hypokalemia 05/30/2021 05/31/2021 Hyponatremia 05/30/2021 05/31/2021 Delirium 05/28/2021 05/31/2021 Angioedema 05/19/2021 05/31/2021 Mild protein-calorie malnutrition 05/19/2021 04/03/2023 Grayson angina 05/18/2021 05/19/2021 Acute respiratory failure with hypoxia 05/18/2021 05/31/2021 Lymphadenopathy, generalized 05/18/2021 11/27/2022 Chronic tension-type headache, intractable 07/07/2019 11/27/2022 Intractable chronic migraine without aura and without status migrainosus 07/07/2019 11/27/2022 Last Assessment & Plan: Assessment: otc analgesics as needed Cervicalgia 07/07/2019 11/27/2022 Chronic daily headache 07/07/201911/27 History of lumbar fusion 03/17/201904/2023 Last Assessment & Plan: Assessment: h/o Acquired spondylolisthesis o f lumbosacral region 03/17/2019 11/27/2022 Lumbosacral stenosis 03/17/2019 023 Poor posture 03/17/2019 11/27/2022 Wound infection after surgery 11/24/2018 04/03/2023 Overview: Had sepsis and multiple admissions after lumbar burger 07/09 Had wound vac and IV antibiotics Spinal stenosis, lumbar cydney on with neurogenic claudication 07/18/2017 11/27/2022 Overview: Added automatically from request for surgery [id number] Lumbar spondylosis 07/18/2017 Overview: Added automatically from request for surgery [id number] Chronic bilateral low back p ain with bilateral sciatica 04/28/2017 11/27/2022 Overview: Added automatically from request for surgery [id number] Obesity due to excess calori es, unspecified obesity severity E66.09 01/02/2017 11/27/2022 Last Assessment & Plan: Assessment: Body mass index is 40.42 kg/m . 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 Primary localized osteoarthrosis, lower leg 02/13/2010 12/11/2010 Anxiety state, unspecified 06/07/2005 0 12/11/2010 Depressive disorder, not elsewhere classified 06/07/20 05 12/11/2010 Carpal tunnel syndrome 06/07/200512/11 documented as of this encounter (statuses as of 05/07/2023) [facility] History of Past illness Narrative* Problem Noted Date Diagnosed Date Resolved Date Abnormal mammogram 05/03/2022 Hypokalemia 05/30/2021 05/31/2021 Hyponatremia 05/30/2021 05/31/2021 Delirium 05/28/2021 05/31/2021 Angioedema 05/19/2021 05/31/2021 Mild protein-calorie malnutrition 05/19/2021 04/03/2023 Grayson angina 05/18/2021 05/19/2021 Acute respiratory failure with hypoxia 05/18/2021 05/31/2021 Lymphadenopathy, generalized 05/18/2021 11/27/2022 Chronic tension-type headache, intractable 07/07/2019 11/27/2022 Intractable chronic migraine without aura and without status migrainosus 07/07/2019 11/27/2022 Last Assessment & Plan: Assessment: otc analgesics as needed Cervicalgia 07/07/2019 11/27/2022 Chronic daily headache 07/07/201911/27 History of lumbar fusion 03/17/201904/2023 Last Assessment & Plan: Assessment: h/o Acquired spondylolisthesis o f lumbosacral region 03/17/2019 11/27/2022 Lumbosacral stenosis 03/17/2019 023 Poor posture 03/17/2019 11/27/2022 Wound infection after surgery 11/24/2018 04/03/2023 Overview: Had sepsis and multiple admissions after lumbar burger 07/09 Had wound vac and IV antibiotics Spinal stenosis, lumbar cydney on with neurogenic claudication 07/18/2017 11/27/2022 Overview: Added automatically from request for surgery [id number] Lumbar spondylosis 07/18/2017 Overview: Added automatically from request for surgery [id number] Chronic bilateral low back p ain with bilateral sciatica 04/28/2017 11/27/2022 Overview: Added automatically from request for surgery [id number] Obesity due to excess calori es, unspecified obesity severity E66.09 01/02/2017 11/27/2022 Last Assessment & Plan: Assessment: Body mass index is 40.42 kg/m . 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 Primary localized osteoarthrosis, lower leg 02/13/2010 12/11/2010 Anxiety state, unspecified 06/07/2005 0 12/11/2010 Depressive disorder, not elsewhere classified 06/07/20 05 12/11/2010 Carpal tunnel syndrome 06/07/200512/11 documented as of this encounter (statuses as of 05/09/2023) [facility] History of Past illness Narrative* Problem Noted Date Diagnosed Date Resolved Date Abnormal mammogram 05/03/2022 Hypokalemia 05/30/2021 05/31/2021 Hyponatremia 05/30/2021 05/31/2021 Delirium 05/28/2021 05/31/2021 Angioedema 05/19/2021 05/31/2021 Mild protein-calorie malnutrition 05/19/2021 04/03/2023 Grayson angina 05/18/2021 05/19/2021 Acute respiratory failure with hypoxia 05/18/2021 05/31/2021 Lymphadenopathy, generalized 05/18/2021 11/27/2022 Chronic tension-type headache, intractable 07/07/2019 11/27/2022 Intractable chronic migraine without aura and without status migrainosus 07/07/2019 11/27/2022 Last Assessment & Plan: Assessment: otc analgesics as needed Cervicalgia 07/07/2019 11/27/2022 Chronic daily headache 07/07/201911/27 History of lumbar fusion 03/17/201904/2023 Last Assessment & Plan: Assessment: h/o Acquired spondylolisthesis o f lumbosacral region 03/17/2019 11/27/2022 Lumbosacral stenosis 03/17/2019 023 Poor posture 03/17/2019 11/27/2022 Wound infection after surgery 11/24/2018 04/03/2023 Overview: Had sepsis and multiple admissions after lumbar burger 07/09 Had wound vac and IV antibiotics Spinal stenosis, lumbar cydney on with neurogenic claudication 07/18/2017 11/27/2022 Overview: Added automatically from request for surgery [id number] Lumbar spondylosis 07/18/2017 Overview: Added automatically from request for surgery [id number] Chronic bilateral low back p ain with bilateral sciatica 04/28/2017 11/27/2022 Overview: Added automatically from request for surgery [id number] Obesity due to excess calori es, unspecified obesity severity E66.09 01/02/2017 11/27/2022 Last Assessment & Plan: Assessment: Body mass index is 40.42 kg/m . 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 Primary localized osteoarthrosis, lower leg 02/13/2010 12/11/2010 Anxiety state, unspecified 06/07/2005 0 12/11/2010 Depressive disorder, not elsewhere classified 06/07/20 05 12/11/2010 Carpal tunnel syndrome 06/07/200512/11 documented as of this encounter (statuses as of 05/13/2023) [facility] History of Past illness Narrative* Problem Noted Date Diagnosed Date Resolved Date Abnormal mammogram 05/03/2022 Hypokalemia 05/30/2021 05/31/2021 Hyponatremia 05/30/2021 05/31/2021 Delirium 05/28/2021 05/31/2021 Angioedema 05/19/2021 05/31/2021 Mild protein-calorie malnutrition 05/19/2021 04/03/2023 Grayson angina 05/18/2021 05/19/2021 Acute respiratory failure with hypoxia 05/18/2021 05/31/2021 Lymphadenopathy, generalized 05/18/2021 11/27/2022 Chronic tension-type headache, intractable 07/07/2019 11/27/2022 Intractable chronic migraine without aura and without status migrainosus 07/07/2019 11/27/2022 Last Assessment & Plan: Assessment: otc analgesics as needed Cervicalgia 07/07/2019 11/27/2022 Chronic daily headache 07/07/201911/27 History of lumbar fusion 03/17/201904/2023 Last Assessment & Plan: Assessment: h/o Acquired spondylolisthesis o f lumbosacral region 03/17/2019 11/27/2022 Lumbosacral stenosis 03/17/2019 023 Poor posture 03/17/2019 11/27/2022 Wound infection after surgery 11/24/2018 04/03/2023 Overview: Had sepsis and multiple admissions after lumbar burger 10/18 Had wound vac and IV antibiotics Spinal stenosis, lumbar cydney on with neurogenic claudication 07/18/2017 11/27/2022 Overview: Added automatically from request for surgery [id number] Lumbar spondylosis 07/18/2017 Overview: Added automatically from request for surgery [id number] Chronic bilateral low back p ain with bilateral sciatica 04/28/2017 11/27/2022 Overview: Added automatically from request for surgery [id number] Obesity due to excess calori es, unspecified obesity severity E66.09 01/02/2017 11/27/2022 Last Assessment & Plan: Assessment: Body mass index is 40.42 kg/m . 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 Primary localized osteoarthrosis, lower leg 02/13/2010 12/11/2010 Anxiety state, unspecified 06/07/2005 0 12/11/2010 Depressive disorder, not elsewhere classified 06/07/20 05 12/11/2010 Carpal tunnel syndrome 06/07/200512/11 documented as of this encounter (statuses as of 06/05/2023) [facility] History of Past illness Narrative* Problem Noted Date Diagnosed Date Resolved Date Abnormal mammogram 05/03/2022 Hypokalemia 05/30/2021 05/31/2021 Hyponatremia 05/30/2021 05/31/2021 Delirium 05/28/2021 05/31/2021 Angioedema 05/19/2021 05/31/2021 Mild protein-calorie malnutrition 05/19/2021 04/03/2023 Grayson angina 05/18/2021 05/19/2021 Acute respiratory failure with hypoxia 05/18/2021 05/31/2021 Lymphadenopathy, generalized 05/18/2021 11/27/2022 Chronic tension-type headache, intractable 07/07/2019 11/27/2022 Intractable chronic migraine without aura and without status migrainosus 07/07/2019 11/27/2022 Last Assessment & Plan: Assessment: otc analgesics as needed Cervicalgia 07/07/2019 11/27/2022 Chronic daily headache 07/07/201911/27 History of lumbar fusion 03/17/201904/2023 Last Assessment & Plan: Assessment: h/o Acquired spondylolisthesis o f lumbosacral region 03/17/2019 11/27/2022 Lumbosacral stenosis 03/17/2019 023 Poor posture 03/17/2019 11/27/2022 Wound infection after surgery 11/24/2018 04/03/2023 Overview: Had sepsis and multiple admissions after lumbar burger 07/09 Had wound vac and IV antibiotics Spinal stenosis, lumbar cydney on with neurogenic claudication 07/18/2017 11/27/2022 Overview: Added automatically from request for surgery [id number] Lumbar spondylosis 07/18/2017 Overview: Added automatically from request for surgery [id number] Chronic bilateral low back p ain with bilateral sciatica 04/28/2017 11/27/2022 Overview: Added automatically from request for surgery [id number] Obesity due to excess calori es, unspecified obesity severity E66.09 01/02/2017 11/27/2022 Last Assessment & Plan: Assessment: Body mass index is 40.42 kg/m . 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 Primary localized osteoarthrosis, lower leg 02/13/2010 12/11/2010 Anxiety state, unspecified 06/07/2005 0 12/11/2010 Depressive disorder, not elsewhere classified 06/07/20 05 12/11/2010 Carpal tunnel syndrome 06/07/200512/11 documented as of this encounter (statuses as of 06/06/2023) [facility] History of Past illness Narrative* Problem Noted Date Diagnosed Date Resolved Date Abnormal mammogram 05/03/2022 Hypokalemia 05/30/2021 05/31/2021 Hyponatremia 05/30/2021 05/31/2021 Delirium 05/28/2021 05/31/2021 Angioedema 05/19/2021 05/31/2021 Mild protein-calorie malnutrition 05/19/2021 04/03/2023 Grayson angina 05/18/2021 05/19/2021 Acute respiratory failure with hypoxia 05/18/2021 05/31/2021 Lymphadenopathy, generalized 05/18/2021 11/27/2022 Chronic tension-type headache, intractable 07/07/2019 11/27/2022 Intractable chronic migraine without aura and without status migrainosus 07/07/2019 11/27/2022 Last Assessment & Plan: Assessment: otc analgesics as needed Cervicalgia 07/07/2019 11/27/2022 Chronic daily headache 07/07/201911/27 History of lumbar fusion 03/17/201904/2023 Last Assessment & Plan: Assessment: h/o Acquired spondylolisthesis o f lumbosacral region 03/17/2019 11/27/2022 Lumbosacral stenosis 03/17/2019 023 Poor posture 03/17/2019 11/27/2022 Wound infection after surgery 11/24/2018 04/03/2023 Overview: Had sepsis and multiple admissions after lumbar burger 07/09 Had wound vac and IV antibiotics Spinal stenosis, lumbar cydney on with neurogenic claudication 07/18/2017 11/27/2022 Overview: Added automatically from request for surgery [id number] Lumbar spondylosis 07/18/2017 Overview: Added automatically from request for surgery [id number] Chronic bilateral low back p ain with bilateral sciatica 04/28/2017 11/27/2022 Overview: Added automatically from request for surgery [id number] Obesity due to excess calori es, unspecified obesity severity E66.09 01/02/2017 11/27/2022 Last Assessment & Plan: Assessment: Body mass index is 40.42 kg/m . 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 Primary localized osteoarthrosis, lower leg 02/13/2010 12/11/2010 Anxiety state, unspecified 06/07/2005 0 12/11/2010 Depressive disorder, not elsewhere classified 06/07/20 05 12/11/2010 Carpal tunnel syndrome 06/07/200512/11 documented as of this encounter (statuses as of 06/06/2023) [facility] History of Past illness Narrative* Problem Noted Date Diagnosed Date Resolved Date Abnormal mammogram 05/03/2022 Hypokalemia 05/30/2021 05/31/2021 Hyponatremia 05/30/2021 05/31/2021 Delirium 05/28/2021 05/31/2021 Angioedema 05/19/2021 05/31/2021 Mild protein-calorie malnutrition 05/19/2021 04/03/2023 Grayson angina 05/18/2021 05/19/2021 Acute respiratory failure with hypoxia 05/18/2021 05/31/2021 Lymphadenopathy, generalized 05/18/2021 11/27/2022 Chronic tension-type headache, intractable 07/07/2019 11/27/2022 Intractable chronic migraine without aura and without status migrainosus 07/07/2019 11/27/2022 Last Assessment & Plan: Assessment: otc analgesics as needed Cervicalgia 07/07/2019 11/27/2022 Chronic daily headache 07/07/201911/27 History of lumbar fusion 03/17/201904/2023 Last Assessment & Plan: Assessment: h/o Acquired spondylolisthesis o f lumbosacral region 03/17/2019 11/27/2022 Lumbosacral stenosis 03/17/2019 023 Poor posture 03/17/2019 11/27/2022 Wound infection after surgery 11/24/2018 04/03/2023 Overview: Had sepsis and multiple admissions after lumbar burger 07/09 Had wound vac and IV antibiotics Spinal stenosis, lumbar cydney on with neurogenic claudication 07/18/2017 11/27/2022 Overview: Added automatically from request for surgery [id number] Lumbar spondylosis 07/18/2017 Overview: Added automatically from request for surgery [id number] Chronic bilateral low back p ain with bilateral sciatica 04/28/2017 11/27/2022 Overview: Added automatically from request for surgery [id number] Obesity due to excess calori es, unspecified obesity severity E66.09 01/02/2017 11/27/2022 Last Assessment & Plan: Assessment: Body mass index is 40.42 kg/m . 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 Primary localized osteoarthrosis, lower leg 02/13/2010 12/11/2010 Anxiety state, unspecified 06/07/2005 0 12/11/2010 Depressive disorder, not elsewhere classified 06/07/20 05 12/11/2010 Carpal tunnel syndrome 06/07/200512/11 documented as of this encounter (statuses as of 06/13/2023) [facility] History of Past illness Narrative* Problem Noted Date Diagnosed Date Resolved Date Abnormal mammogram 05/03/2022 Hypokalemia 05/30/2021 05/31/2021 Hyponatremia 05/30/2021 05/31/2021 Delirium 05/28/2021 05/31/2021 Angioedema 05/19/2021 05/31/2021 Mild protein-calorie malnutrition 05/19/2021 04/03/2023 [place] angina 05/18/2021 05/19/2021 Acute respiratory failure with hypoxia 05/18/2021 05/31/2021 Lymphadenopathy, generalized 05/18/2021 11/27/2022 Chronic tension-type headache, intractable 07/07/2019 11/27/2022 Intractable chronic migraine without aura and without status migrainosus 07/07/2019 11/27/2022 Last Assessment & Plan: Assessment: otc analgesics as needed Cervicalgia 07/07/2019 11/27/2022 Chronic daily headache 07/07/201911/27 History of lumbar fusion 03/17/201904/2023 Last Assessment & Plan: Assessment: h/o Acquired spondylolisthesis o f lumbosacral region 03/17/2019 11/27/2022 Lumbosacral stenosis 03/17/2019 023 Poor posture 03/17/2019 11/27/2022 Wound infection after surgery 11/24/2018 04/03/2023 Overview: Had sepsis and multiple admissions after lumbar burger 07/09 Had wound vac and IV antibiotics Spinal stenosis, lumbar cydney on with neurogenic claudication 07/18/2017 11/27/2022 Overview: Added automatically from request for surgery [id number] Lumbar spondylosis 07/18/2017 Overview: Added automatically from request for surgery [id number] Chronic bilateral low back p ain with bilateral sciatica 04/28/2017 11/27/2022 Overview: Added automatically from request for surgery [id number] Obesity due to excess calori es, unspecified obesity severity E66.09 01/02/2017 11/27/2022 Last Assessment & Plan: Assessment: Body mass index is 40.42 kg/m . 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 Primary localized osteoarthrosis, lower leg 02/13/2010 12/11/2010 Anxiety state, unspecified 06/07/2005 0 12/11/2010 Depressive disorder, not elsewhere classified 06/07/20 05 12/11/2010 Carpal tunnel syndrome 06/07/200512/11 documented as of this encounter (statuses as of 06/14/2023) [facility] History of Past illness Narrative* Problem Noted Date Diagnosed Date Resolved Date Abnormal mammogram 05/03/2022 Hypokalemia 05/30/2021 05/31/2021 Hyponatremia 05/30/2021 05/31/2021 Delirium 05/28/2021 05/31/2021 Angioedema 05/19/2021 05/31/2021 Mild protein-calorie malnutrition 05/19/2021 04/03/2023 [place] angina 05/18/2021 05/19/2021 Acute respiratory failure with hypoxia 05/18/2021 05/31/2021 Lymphadenopathy, generalized 05/18/2021 11/27/2022 Chronic tension-type headache, intractable 07/07/2019 11/27/2022 Intractable chronic migraine without aura and without status migrainosus 07/07/2019 11/27/2022 Last Assessment & Plan: Assessment: otc analgesics as needed Cervicalgia 07/07/2019 11/27/2022 Chronic daily headache 07/07/201911/27 History of lumbar fusion 03/17/201904/2023 Last Assessment & Plan: Assessment: h/o Acquired spondylolisthesis o f lumbosacral region 03/17/2019 11/27/2022 Lumbosacral stenosis 03/17/2019 023 Poor posture 03/17/2019 11/27/2022 Wound infection after surgery 11/24/2018 04/03/2023 Overview: Had sepsis and multiple admissions after lumbar burger 07/09 Had wound vac and IV antibiotics Spinal stenosis, lumbar cydney on with neurogenic claudication 07/18/2017 11/27/2022 Overview: Added automatically from request for surgery [id number] Lumbar spondylosis 07/18/2017 Overview: Added automatically from request for surgery [id number] Chronic bilateral low back p ain with bilateral sciatica 04/28/2017 11/27/2022 Overview: Added automatically from request for surgery [id number] Obesity due to excess calori es, unspecified obesity severity E66.09 01/02/2017 11/27/2022 Last Assessment & Plan: Assessment: Body mass index is 40.42 kg/m . 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 Primary localized osteoarthrosis, lower leg 02/13/2010 12/11/2010 Anxiety state, unspecified 06/07/2005 0 12/11/2010 Depressive disorder, not elsewhere classified 06/07/2012/11/2010 Carpal tunnel syndrome 06/07/200512/11 documented as of this encounter (statuses as of 04/19/2023) [facility] Miscellaneous Notes* Telephone Encounter - Heaven Sykes - 05/03/2022 12:05 PM EDTSummary: BMBX BMBX IN [facility] W/DR ESCUDERO ON 05/15/22 @ 12PM/ HEP/CBC/PBSX2/SPECIMEN TO [facility]/ [facility] documented in [facility] encounter[facility] History of Present illness Narrative* Suad Joe, RT(R) - 04/22/2022 4:20 PM EDT Radiology Service Progress Note PATIENT NAME: Lisa Up DATE OF SERVICE: April 22, 2022 TIME: 4:26 PM PATIENT IDENTITY VERIFICATION COMPLETED USING TWO (2) IDENTIFIERS: Name and Date of confirmedby patient verbally. FALL SCREENING: Has the patient had 2 falls in the last year or 1 fall with injury or currently using an Ambulatory Assistive Device (Walker, Cane, Wheelchair, Crutches, etc.)? Yes, Patient High Riskfor Falls What interventions were put in place to prevent falls during this visit? Offered Assistance with Transfers/Clothing, Instructed Patient to Remain Seated (Not on Exam Table) Until Exam and did sittingin chair PATIENT GENDER DATA: Female. status: : No status: NO. PATIENT RELEVANT IMPLANT DATA REVIEWED: Not Applicable RADIOLOGY DEPARTMENT: General X-ray: Exam(s) Completed: Chest X-Ray PERIPHERAL IV DATA: Not applicable SIGNED BY: RT Gi(R) April 22, 2022 4:26 PM documented in this encounterA[facility]22 History of Present illness Narrative* Sylvia Lizama MD - 04/22/2022 3:28 PM EDT Patient presents with: Edema: B/L leg swelling X 3 wks more so tops of legs/things Back Pain Hypertension: RF HPI: Patient presents today for office visit for acute visit. Complains of increased edema. Was having increased swelling for several weeks but is not as bad now. Primarily in the top of the legs. Some shortness of breath. No sure if any worse than usual. Has a lot of cough for a month. Has yellow sputum Which is new. No sinus congestion. She is unsure if she saw some blood in the sputum No fever or chills. No chest pain. Edema was all day No redness or warmth. Has been more weak tired. No drainage from the back. Her nerve pain is better. Still with chronic back pain. Had seen pain management. Has not been back. Referred back to them for the back. No bleeding or bruising issues. Has an ivc filter and remains on eliquis. Moods are ok. Still seeing Dr. Escudero. MEDICATIONS: Current Outpatient Medications Medication Sig triamterene-hydroCHLOROthiazide (MAXZIDE-25MG) 37.5-25 mg per tablet Take 1 tablet by mouth once daily. potassium chloride (K-TAB) 10 mEq tablet Take 1 tablet by mouth twice daily. omeprazole (PRILOSEC) 20 mg capsule Take 1 capsule by mouth twice daily. 1/2 hr before meal. famotidine (PEPCID) 20 mg tablet Take 1 tablet by mouth twice daily as needed. hydrALAZINE (APRESOLINE) 25 mg tablet Take 1 tablet by mouth every 12 hours. gabapentin (NEURONTIN) 300 mg capsule Take 1 capsule by mouth every 8 hours for 90 days. HYDROcodone-acetaminophen (NORCO) 5-325 mg per tablet TAKE 1/2 TO 1 (ONE-HALF TO ONE) TABLET BY MOUTH TWICE DAILY NEEDED FOR 30 DAYS levothyroxine (SYNTHROID) 75 mcg tablet Take 1 tablet by mouth daily before breakfast. apixaban (ELIQUIS) 5 mg tab(s) Take 1 tablet by mouth twice daily. EPINEPHrine (EPIPEN) 0.3 mg/0.3 mL auto-injector Use as directed carvedilol (COREG) 12.5 mg tablet Take 12.5 mg by mouth twice daily. multivitamin/iron/folic acid (CENTRUM ULTRA WOMEN'S ORAL) Take by mouth. traMADol (ULTRAM) 50 mg tablet TAKE 1 TABLET BY MOUTH EVERY 6 HOURS NEEDED FOR MODERATE PAIN FORUP TO 7 DAYS (Patient not taking: Reported on 01/29/2022) No current facility-administered medications for this visit. ALLERGIES: ALLERGIES Allergen Reactions Covid-19 Vaccine, M* Anaphylaxis Erythromycin Rash, GI Upset Urticarial rash, seen in [place] [facility] Latex Swelling Lisinopril Swelling Nafcillin Itching 06/29/21 negative penicillin skin testing. Passed oral amoxicillin challenge. Norvasc [Amlodipine* Swelling Wasps Mental Status Change, Rash PAST MEDICAL HISTORY Diagnosis Date ANXIETY STATE NOS 06/07/2005 Carpal tunnel syndrome 06/07/2005 Cholelithiasis 06/17/2012 DEPRESSIVE DISORDER NEC 06/07/2005 Diverticulosis of colon (without mention of hemorrhage) Dizziness and giddiness 02/26/2010 GENERAL OSTEOARTHROSIS 06/07/2005 Goiter, unspecified 12/11/2010 Headache(784.0) 02/26/2010 Chronic. HYPERLIPIDEMIA NEC/NOS 06/07/2005 HYPERTENSION NOS 06/07/2005 IDIO PERIPH NEURPTHY NEC 06/07/2005 Mixed incontinence urge and stress 12/19/2010 Multiple thyroid nodules Nontoxic multinodular goiter 01/01/2011 OBESITY NOS 06/07/2005 Primary localized osteoarthrosis, lower leg 02/13/2010 Spinal stenosis, lumbar 09/22/2015 Dr. Ramírez, severe PAST SURGICAL HISTORY Procedure Laterality Date ARTHRP KNE CONDYLE&PLATU MEDIAL&LAT COMPARTMENTS February2010 Knee replacement, total, Left ARTHRP KNE CONDYLE&PLATU MEDIAL&LAT COMPARTMENTS Nov.2010 Knee replacement, total, Right COLONOSCOPY FLX DX W/COLLJ SPEC WHEN PFRMD 06/05/2011 Colonoscopy COLONOSCOPY FLX DX W/COLLJ SPEC WHEN PFRMD N/A 12/04/2016 ESOPHAGOGASTRODUODENOSCOPY TRANSORAL DIAGNOSTIC N/A 12/04/2016 DEVORA FILTER 2019 NEPHRECTOMY PARTIAL 1986 Nephrectomy, partial left (benign) PAST SURGICAL HISTORY OF 06/2018 lumbar burger with wound infection TOTAL ABDOMINAL HYSTERECT W/WO RMVL TUBE OVARY 1986 Hysterectomy, NEISHA FAMILY HISTORY Problem Relation Age of Onset Heart Mother Cancer Mother lung Heart Father other (Other) Father Heart Brother [place], aneurysm Migraines Daughter Macular Degen Maternal Aunt Social History Tobacco Use Smoking status: Never Smoker Smokeless tobacco: Never Used Vaping Use Vaping Use: Never used Substance Use Topics Alcohol use: No Drug use: No Reviewed current medications, allergies, past medical history, surgical history, family history andsocial history today. REVIEW OF SYSTEMS All other reviewed and negative other than HPI. HEALTH MAINTENANCE: Reviewed health maintenance issues today= VITALS: BP 144/90 Pulse 67 Ht 157.5 cm (5' 2) Wt 101.6 kg (224 lb) SpO2 98% BMI 40.97 kg/m Last 4 Encounter Wt Readings: Date: Wt: 04/22/2022 101.6 kg (224 lb) 01/29/2022 98.7 kg (217 lb 8 oz) 11/01/2021 95.7 kg (211 lb) 10/18/2021 93 kg (205 lb) PHYSICAL EXAMINATION: General appearance: Well appearing, alert, in no acute distress, well-hydrated, well nourished. Skin: Skin color, texture, turgor normal, no suspicious rashes or lesions Head: Normocephalic, no masses, lesions, tenderness or abnormalities Neck: Supple, no adenopathy; thyroid symmetric, normal size, no bruits Lungs: Lungs clear to auscultation. No wheezing, rhonchi, rales Heart: RRR without murmur, gallop, or rubs. No ectopy Abdomen: Normal abdominal exam, Abdomen soft, non-tender. Bowel sounds normal. No masses, organomegaly Extremities: no edema today. No redness or warmth Musculoskeletal: No joint swelling, deformity, or tenderness Peripheral pulses: Normal Neuro: Negative. ASSESSMENT/PLAN: 1. SOB (shortness of breath) - ICD9: 786.05, ICD10: R06.02 (primary diagnosis) - Discussed checking daily weights and call if greater than 3 lbs/24 hours. Treat for possible bronchitis with doxycycline. Red flags for re-assessment reviewed with patient in detail. - XR CHEST 2V FRONTAL/LAT - NT PRO BNP 2. Fatigue, unspecified type - ICD9: 780.79, ICD10: R53.83 - CBC + DIFF - BASIC METABOLIC PNL - TSH BLD 3. Bronchitis - ICD9: 490, ICD10: J40 - XR CHEST 2V FRONTAL/LAT - NT PRO BNP - DOXYCYCLINE MONOHYDRATE 100 MG TABLET 4. Edema, unspecified type - ICD9: 782.3, ICD10: R60.9 - resolved today. Call if recurs 5. Hypothyroidism, unspecified type - ICD9: 244.9, ICD10: E03.9 - check labs. 6. B-cell lymphoma, unspecified B-cell lymphoma type, unspecified body region (HCC) - ICD9: 202.80,ICD10: C85.10 - per Dr. Escudero 7. DDD (degenerative disc disease), lumbar - ICD9: 722.52, ICD10: M51.36 - continue on meds. - GABAPENTIN 300 MG CAPSULE 8. Essential hypertension - ICD9: 401.9, ICD10: I10 - poor control - Follow bp - Goal of BP <130/80 - CARVEDILOL 12.5 MG TABLET - HYDRALAZINE 25 MG TABLET Sylvia Lizama RTO in one month and prn. documented in this encounterA[facility] System07-29-2022 Miscellaneous Notes* Telephone Encounter - Sylvia Lizama MD - 04/19/2022 1:41 PM EDT agree * Telephone Encounter - Gorge Melendrez LPN - 04/19/2022 1:25 PM EDT Pt phones office complaining of BLL edema x 2 months. Pt states she messaged office on 04/01/22 and was given rx for Maxide. She has only been able to take 1/2 tablet instead of a whole tablet d/t always having to urinate and still notes swelling. Pt denies redness/seeping. Legs do not feel warm to touch. No shortness of breath or wheezing. She has been elevating her legs, but is unable to tolerate compression stockings. Appt scheduled with PCP for Sunday 04/22. Pt advised to go to ER should she develop any shortness of breath, chest pain or if legs become red, warm to touch, etc. Gorge Melendrez LPN documented in this encounterAcmc Healthcare System07-11-2022 Miscellaneous Notes* Telephone Encounter - Danielle Gregory RN - 04/01/2022 2:49 PM EDT Patient returned call. She states she has been taking this medication daily until two months ago. She says she was only taking one half a tablet and did not run out of medication until then. She sayssince she has been off the medication, both feet and ankles are swollen and her legs feel tight. She is still able to put a loose shoe on. She says swelling is much worse than usual. She has been elevating her legs but it hasn't helped. She denies SOB, cough, chest pain. Danielle Gregory RN * Telephone Encounter - Yarely Lee RN - 04/01/2022 2:29 PM EDT Call placed to patient and requested she call back and ask to speak to a triage nurse to review symptoms and medication request. Yarely Lee RN * Telephone Encounter - Sylvia Lizama MD - 04/01/2022 1:09 PM EDT Can we triage her edema. We have not refilled it since 2019. Was she taking it regularly. * Telephone Encounter - Luz Morfin Ma - 04/01/2022 11:04 AM EDT Do you want pt to continue this medication. Not refilled since Jul 2020 Last office visit: 10/16/21 F/u scheduled: none Luz Morfin Ma documented in this encounterAcmc Healthcare System06-14-2022 Miscellaneous Notes* Telephone Encounter - Kimberly Obregon LPN - 03/05/2022 8:32 AM EDT Patient has been identified by name and date of : Yes Patient phones for refill(s): Pending Prescriptions Disp Refills POTASSIUM CHLORIDE ER 10 MEQ TABLET,EXTENDED RELEASE 180 tablet 3 Sig: Take 1 tablet by mouth twice daily. INDIGO: No OMEPRAZOLE 20 MG CAPSULE,DELAYED RELEASE 60 capsule 5 Sig: Take 1 capsule by mouth twice daily. 1/2 hr before meal. INDIGO: No Date of last office visit in primary care: 10/16/21 Last 2 Encounter Wt Readings: Date: Wt: 01/29/2022 98.7 kg (217 lb 8 oz) 11/01/2021 95.7 kg (211 lb) Previous labs/tests for medication: Not applicable Please advise. Thank you. Kimberly Obregon LPN documented in this encounterAcmc [facility] System05-16-2022 Miscellaneous Notes* Telephone Encounter - Sabrina Cavanaugh Ma - 02/04/2022 3:51 PM EDT See refill request documented in this encounterAcmc Healthcare System05-16-2022 Miscellaneous Notes* Telephone Encounter - Christina Javed LPN - 02/04/2022 3:00 PM EDT Patient phones requesting refills as follows: Pending Prescriptions Disp Refills HYDRALAZINE 25 MG TABLET 180 tablet 1 Sig: Take 1 tablet by mouth every 12 hours. INDIGO: No GABAPENTIN 300 MG CAPSULE 90 capsule 2 Sig: Take 1 capsule by mouth every 8 hours for 90 days. INDIGO: No TERENCE-12/11/21 Labs-01/29/22 NOV-none Please review and advise. Christina Javed LPN documented in this encounterAcmc Healthcare System05-10-2022 History of Present illness Narrative* Melba Escudero MD - 01/29/2022 4:20 PM EDT PATIENT NAME: Lisa Up. CLINIC NO: [id number]. ATTENDING PHYSICIAN: Melba Escudero MD. DATE OF SERVICE:01/29/2022. DIAGNOSIS: Stage III, follicular B cell (grade 1- 2), non-Hodgkin lymphoma HPI: 75-year-old female with history of swelling in her neck and chest tightness who presented withan abnormal CT scan of the neck and chest. She has generalized adenopathy involving her supraclavicular, bilateral axillary, and subcarinal regions. 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 She is scheduled for removal of her prosthesis because of recurrent infection. She denied history of fever, chills or night sweat. She has unexplained weight loss, or increased fatigue. She has multiple transfusions in the past from her surgery. She denied history of hepatitis or HIV infection. Interim history: She had a COVID vaccine last year and subsequently had an severe anaphylactic reaction. She has no fever, chills or night sweat. She has no early satiety, itching or jaundice. She has no pain under her arms or swollen glands. The incision on her back is healed with no sign of infection. All medications & allergies updated and reviewed by me. REVIEW OF SYSTEMS: CONSTITUTIONAL: No fevers, chills, nightsweats, unintended weight loss HEENT: Denies frequent or severe heaches, nasal congestion/sinus symptoms, problematic allergy problems. EYES: No diplopia or blurry vision. CARDIOVASCULAR: No chest pain, dyspnea, palpitations, orthopnea, PND, ankle edema. PULM: No dyspnea, unexplained cough. GI: No dysphagia/odynophagia, problematic reflux, constipation, diarrhea, changes in stool habits, hematochezia, melena. : No new urinary complaints, including dysuria, gross hematuria or pyuria. NEURO: No new balance problems, peripheral weakness/paresthesias or numbness of concern. MUSC-SKEL: No new joint pain, swelling, or erythema. + Chronic lower back pain from nonhealing wound. PSY: No concerns regarding depression, anxiety or panic. INTEGUMENTARY: No new skin changes (rash, new or changing mole, new growth) PHYSICAL EXAMINATION: 75-year-old moderately obese female in no acute distress Performance Status:80% BP 122/52 Pulse 71 Temp 98.9 Wt 217 lb 8 oz (98.7kg) SpO2 97% HEENT: Head is normocephalic, atraumatic. Sclerae white, conjunctivae pink. PEERL. EOMs are intact.Oropharynx is benign. LYMPHATICS: There is no palpable adenopathy in supraclavicular region, + enlarged axillary adenopathy Left (largest 2 x 2 cm), + small cervical lymph nodes are palpable. LUNGS: Lungs are clear to percussion with expiratory wheezing. HEART: Heart is normal without murmurs, gallops, or rubs. ABDOMEN: Obese, soft and nontender without organomegaly. No masses can be palpated. BACK: Healed incision in the lumbar region. No erythema or tenderness. EXTREMITIES: Are without edema. NEUROLOGIC: Exam is physiologic LABS: Component Latest Ref Rng & Units 01/29/2022 WBC 3.70 - 11.00 k/uL 4.93 RBC 3.90 - 5.20 m/uL 3.88 (L) Hemoglobin 11.5 - 15.5 g/dL 11.8 Hematocrit 36.0 - 46.0 % 36.9 MCV 80.0 - 100.0 fL 95.1 MCH 26.0 - 34.0 pg 30.4 MCHC 30.5 - 36.0 g/dL 32.0 RDW-CV 11.5 - 15.0 % 13.9 Platelet Count 150 - 400 k/uL 129 (L) MPV 9.0 - 12.7 fL 9.4 Neut% % 48.4 Abs Neut (ANC) 1.45 - 7.50 k/uL 2.38 Lymph% % 37.7 Abs Lymph 1.00 - 4.00 k/uL 1.86 [place]% % 10.1 Abs [place] <0.87 k/uL 0.50 Eosin% % 3.4 Abs Eosin <0.46 k/uL 0.17 Baso% % 0.4 Abs Baso <0.11 k/uL <0.03 Immature Gran % % 0.0 IMMATURE GRANS (ABS) <0.10 k/uL <0.03 NRBC /100 WBC 0.0 Absolute nRBC <0.01 k/uL <0.01 DTYPE Auto Component Latest Ref Rng & Units 01/29/2022 Protein, Total 6.3 - 8.0 g/dL 6.4 Albumin 3.9 - 4.9 g/dL 3.8 (L) Calcium 8.5 - 10.2 mg/dL 9.3 Bilirubin, Total 0.2 - 1.3 mg/dL 0.2 Alkaline Phosphatase 34 - 123 U/L 73 AST 13 - 35 U/L 23 ALT 7 - 38 U/L 6 (L) Glucose 74 - 99 mg/dL 127 (H) BUN 7 - 21 mg/dL 14 Creatinine 0.58 - 0.96 mg/dL 0.83 Sodium 136 - 144 mmol/L 140 Potassium 3.7 - 5.1 mmol/L 4.1 Chloride 97 - 105 mmol/L 106 (H) CO2 22 - 30 mmol/L 28 Anion Gap 9 - 18 mmol/L 6 (L) eGFR >=60 mL/min/1.73m 72 LD 135 - 214 U/L 197 ASSESSMENT/PLAN: 75-year-old lady with a history of low-grade follicular lymphoma. Clinical stage 3A with multiple lymph node in her neck and abdomen and axilla. She is minimal progression of disease on exam today and she is asymptomatic from her lymphoma. 1) stage IIIa, low-grade, follicular non-Hodgkin lymphoma -Stable disease Plan: -Since she is asymptomatic from her follicular lymphoma, I recommend that we continue observation -Complete staging with bone marrow biopsy is not necessary unless we decided to start chemotherapy with rituximab and bendamustine. -Repeat CT C/A/P in 3 months -Repeat CBC, CMP, and [facility] office visit in 3 months 2) breast cancer screening -No palpable lump on her breasts. Plan: -Reschedule screening mammograms Portions of this documentation were copied and pasted from previous office visit notes in order to provide a cohesive continuity of the history. The note has been reviewed and edited and updated as necessary. Melba Escudero MD Cc: Dr. Sylvia Lizama documented in this encounterAcmc [facility] System09-08-2021 History of Past illness Narrative* Problem Noted Date Resolved Date Hypokalemia 05/30/2021 05/31/2021 Hyponatremia 05/30/2021 05/31/2021 Delirium 05/28/2021 05/31/2021 Angioedema 05/19/2021 05/31/2021 Grayson angina 05/18/2021 05/19/2021 Acute respiratory failure with hypoxia 05/31/2021 Blepharitis of both eyes 12/27/2015 016 Meibomianitis 12/14/2015 01/03/2016 Meibomitis 09/06/2015 11/02/2015 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 05/13/2014 08/16/2015 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 05/13/2014 08/16/2015 Other and combined forms of senile cataract - Ebnito th Eyes 05/13/2014 08/16/2015 Tear film insufficiency, unspecified - Both Eyes 05/13/2014 01/03/2016 Candidiasis, intertrigo 06/08/2013 10/16/19 22 Cholelithiasis 06/17/2012 06/24/2013 Goiter, unspecified 12/11/2010 01/15/2012 Dizziness and giddiness 02/26/2010 12/12/19 11 Primary localized osteoarthrosis, lower leg 01/2112/11/2010 Anxiety state, unspecified 06/07/200512/11 Depressive disorder, not elsewhere classified 12/11/2010 Carpal tunnel syndrome 06/07/2005 1 Obesity, Class III, BMI 40-49.9 (morbid obesity) 06/07/2005 09/12/2021 documented as of this encounter (statuses as of 01/10/2022) [facility] of Past illness Narrative* Problem Noted Date Resolved Date Hypokalemia 05/30/2021 05/31/2021 Hyponatremia 05/30/2021 05/31/2021 Delirium 05/28/2021 05/31/2021 Angioedema 05/19/2021 05/31/2021 Grayson angina 05/18/2021 05/19/2021 Acute respiratory failure with hypoxia 05/31/2021 Blepharitis of both eyes 12/27/2015 016 Meibomianitis 12/14/2015 01/03/2016 Meibomitis 09/06/2015 11/02/2015 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 05/13/2014 08/16/2015 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 05/13/2014 08/16/2015 Other and combined forms of senile cataract - Benito th Eyes 05/13/2014 08/16/2015 Tear film insufficiency, unspecified - Both Eyes 05/13/2014 01/03/2016 Candidiasis, intertrigo 06/08/2013 10/16/19 22 Cholelithiasis 06/17/2012 06/24/2013 Goiter, unspecified 12/11/2010 01/15/2012 Dizziness and giddiness 02/26/2010 12/12/19 11 Primary localized osteoarthrosis, lower leg 01/2112/11/2010 Anxiety state, unspecified 06/07/200512/11 Depressive disorder, not elsewhere classified 12/11/2010 Carpal tunnel syndrome 06/07/2005 1 Obesity, Class III, BMI 40-49.9 (morbid obesity) 06/07/2005 09/12/2021 documented as of this encounter (statuses as of 01/30/2022) [facility] of Past illness Narrative* Problem Noted Date Resolved Date Hypokalemia 05/30/2021 05/31/2021 Hyponatremia 05/30/2021 05/31/2021 Delirium 05/28/2021 05/31/2021 Angioedema 05/19/2021 05/31/2021 Grayson angina 05/18/2021 05/19/2021 Acute respiratory failure with hypoxia 05/31/2021 Blepharitis of both eyes 12/27/2015 016 Meibomianitis 12/14/2015 01/03/2016 Meibomitis 09/06/2015 11/02/2015 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 05/13/2014 08/16/2015 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 05/13/2014 08/16/2015 Other and combined forms of senile cataract - Benito th Eyes 05/13/2014 08/16/2015 Tear film insufficiency, unspecified - Both Eyes 05/13/2014 01/03/2016 Candidiasis, intertrigo 06/08/2013 10/16/19 22 Cholelithiasis 06/17/2012 06/24/2013 Goiter, unspecified 12/11/2010 01/15/2012 Dizziness and giddiness 02/26/2010 12/12/19 11 Primary localized osteoarthrosis, lower leg 01/2112/11/2010 Anxiety state, unspecified 06/07/200512/11 Depressive disorder, not elsewhere classified 12/11/2010 Carpal tunnel syndrome 06/07/2005 1 Obesity, Class III, BMI 40-49.9 (morbid obesity) 06/07/2005 09/12/2021 documented as of this encounter (statuses as of 02/04/2022) [facility] illness Narrative* Problem Noted Date Resolved Date Hypokalemia 05/30/2021 05/31/2021 Hyponatremia 05/30/2021 05/31/2021 Delirium 05/28/2021 05/31/2021 Angioedema 05/19/2021 05/31/2021 Grayson angina 05/18/2021 05/19/2021 Acute respiratory failure with hypoxia 05/31/2021 Blepharitis of both eyes 12/27/2015 016 Meibomianitis 12/14/2015 01/03/2016 Meibomitis 09/06/2015 11/02/2015 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 05/13/2014 08/16/2015 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 05/13/2014 08/16/2015 Other and combined forms of senile cataract - Benito th Eyes 05/13/2014 08/16/2015 Tear film insufficiency, unspecified - Both Eyes 05/13/2014 01/03/2016 Candidiasis, intertrigo 06/08/2013 10/16/19 22 Cholelithiasis 06/17/2012 06/24/2013 Goiter, unspecified 12/11/2010 01/15/2012 Dizziness and giddiness 02/26/2010 12/12/19 11 Primary localized osteoarthrosis, lower leg 01/2112/11/2010 Anxiety state, unspecified 06/07/200512/11 Depressive disorder, not elsewhere classified 12/11/2010 Carpal tunnel syndrome 06/07/2005 1 Obesity, Class III, BMI 40-49.9 (morbid obesity) 06/07/2005 09/12/2021 documented as of this encounter (statuses as of 02/04/2022) [facility] Narrative* Problem Noted Date Resolved Date Hypokalemia 05/30/2021 05/31/2021 Hyponatremia 05/30/2021 05/31/2021 Delirium 05/28/2021 05/31/2021 Angioedema 05/19/2021 05/31/2021 Grayson angina 05/18/2021 05/19/2021 Acute respiratory failure with hypoxia 05/31/2021 Blepharitis of both eyes 12/27/2015 016 Meibomianitis 12/14/2015 01/03/2016 Meibomitis 09/06/2015 11/02/2015 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 05/13/2014 08/16/2015 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 05/13/2014 08/16/2015 Other and combined forms of senile cataract - Benito th Eyes 05/13/2014 08/16/2015 Tear film insufficiency, unspecified - Both Eyes 05/13/2014 01/03/2016 Candidiasis, intertrigo 06/08/2013 10/16/19 22 Cholelithiasis 06/17/2012 06/24/2013 Goiter, unspecified 12/11/2010 01/15/2012 Dizziness and giddiness 02/26/2010 12/12/19 11 Primary localized osteoarthrosis, lower leg 01/2112/11/2010 Anxiety state, unspecified 06/07/200512/11 Depressive disorder, not elsewhere classified 12/11/2010 Carpal tunnel syndrome 06/07/2005 1 Obesity, Class III, BMI 40-49.9 (morbid obesity) 06/07/2005 09/12/2021 documented as of this encounter (statuses as of 03/05/2022) [facility] Narrative* Problem Noted Date Resolved Date Hypokalemia 05/30/2021 05/31/2021 Hyponatremia 05/30/2021 05/31/2021 Delirium 05/28/2021 05/31/2021 Angioedema 05/19/2021 05/31/2021 Grayson angina 05/18/2021 05/19/2021 Acute respiratory failure with hypoxia 05/31/2021 Blepharitis of both eyes 12/27/2015 016 Meibomianitis 12/14/2015 01/03/2016 Meibomitis 09/06/2015 11/02/2015 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 05/13/2014 08/16/2015 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 05/13/2014 08/16/2015 Other and combined forms of senile cataract - Benito th Eyes 05/13/2014 08/16/2015 Tear film insufficiency, unspecified - Both Eyes 05/13/2014 01/03/2016 Candidiasis, intertrigo 06/08/2013 10/16/19 22 Cholelithiasis 06/17/2012 06/24/2013 Goiter, unspecified 12/11/2010 01/15/2012 Dizziness and giddiness 02/26/2010 12/12/19 11 Primary localized osteoarthrosis, lower leg 01/2112/11/2010 Anxiety state, unspecified 06/07/200512/11 Depressive disorder, not elsewhere classified 12/11/2010 Carpal tunnel syndrome 06/07/2005 1 Obesity, Class III, BMI 40-49.9 (morbid obesity) 06/07/2005 09/12/2021 documented as of this encounter (statuses as of 04/01/2022) [facility] Narrative* Problem Noted Date Resolved Date Hypokalemia 05/30/2021 05/31/2021 Hyponatremia 05/30/2021 05/31/2021 Delirium 05/28/2021 05/31/2021 Angioedema 05/19/2021 05/31/2021 Grayson angina 05/18/2021 05/19/2021 Acute respiratory failure with hypoxia 05/31/2021 Blepharitis of both eyes 12/27/2015 016 Meibomianitis 12/14/2015 01/03/2016 Meibomitis 09/06/2015 11/02/2015 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 05/13/2014 08/16/2015 Glaucomatous atrophy (cupping) of optic disc - B ot Eyes 05/13/2014 08/16/2015 Other and combined forms of senile cataract - Benito th Eyes 05/13/2014 08/16/2015 Tear film insufficiency, unspecified - Both Eyes 05/13/2014 01/03/2016 Candidiasis, intertrigo 06/08/2013 10/16/19 22 Cholelithiasis 06/17/2012 06/24/2013 Goiter, unspecified 12/11/2010 01/15/2012 Dizziness and giddiness 02/26/2010 12/12/19 11 Primary localized osteoarthrosis, lower leg 01/2112/11/2010 Anxiety state, unspecified 06/07/200512/11 Depressive disorder, not elsewhere classified 12/11/2010 Carpal tunnel syndrome 06/07/2005 1 Obesity, Class III, BMI 40-49.9 (morbid obesity) 06/07/2005 09/12/2021 documented as of this encounter (statuses as of 04/19/2022) [facility] Narrative* Problem Noted Date Resolved Date Hypokalemia 05/30/2021 05/31/2021 Hyponatremia 05/30/2021 05/31/2021 Delirium 05/28/2021 05/31/2021 Angioedema 05/19/2021 05/31/2021 Grayson angina 05/18/2021 05/19/2021 Acute respiratory failure with hypoxia 05/31/2021 Blepharitis of both eyes 12/27/2015 016 Meibomianitis 12/14/2015 01/03/2016 Meibomitis 09/06/2015 11/02/2015 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 05/13/2014 08/16/2015 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 05/13/2014 08/16/2015 Other and combined forms of senile cataract - Benito th Eyes 05/13/2014 08/16/2015 Tear film insufficiency, unspecified - Both Eyes 05/13/2014 01/03/2016 Candidiasis, intertrigo 06/08/2013 10/16/19 22 Cholelithiasis 06/17/2012 06/24/2013 Goiter, unspecified 12/11/2010 01/15/2012 Dizziness and giddiness 02/26/2010 12/12/19 11 Primary localized osteoarthrosis, lower leg 01/2112/11/2010 Anxiety state, unspecified 06/07/200512/11 Depressive disorder, not elsewhere classified 12/11/2010 Carpal tunnel syndrome 06/07/2005 1 Obesity, Class III, BMI 40-49.9 (morbid obesity) 06/07/2005 09/12/2021 documented as of this encounter (statuses as of 04/22/2022) [facility] Narrative* Problem Noted Date Resolved Date Hypokalemia 05/30/2021 05/31/2021 Hyponatremia 05/30/2021 05/31/2021 Delirium 05/28/2021 05/31/2021 Angioedema 05/19/2021 05/31/2021 Grayson angina 05/18/2021 05/19/2021 Acute respiratory failure with hypoxia 05/31/2021 Blepharitis of both eyes 12/27/2015 016 Meibomianitis 12/14/2015 01/03/2016 Meibomitis 09/06/2015 11/02/2015 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 05/13/2014 08/16/2015 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 05/13/2014 08/16/2015 Other and combined forms of senile cataract - Benito th Eyes 05/13/2014 08/16/2015 Tear film insufficiency, unspecified - Both Eyes 05/13/2014 01/03/2016 Candidiasis, intertrigo 06/08/2013 10/16/19 Cholelithiasis 06/17/2012 06/24/2013 Goiter, unspecified 12/11/2010 01/15/2012 Dizziness and giddiness 02/26/2010 12/12/19 11 Primary localized osteoarthrosis, lower leg 01/2112/11/2010 Anxiety state, unspecified 06/07/200512/11 Depressive disorder, not elsewhere classified 12/11/2010 Carpal tunnel syndrome 06/07/2005 1 Obesity, Class III, BMI 40-49.9 (morbid obesity) 06/07/2005 09/12/2021 documented as of this encounter (statuses as of 05/07/2022) [facility] Narrative* Problem Noted Date Resolved Date Hypokalemia 05/30/2021 05/31/2021 Hyponatremia 05/30/2021 05/31/2021 Delirium 05/28/2021 05/31/2021 Angioedema 05/19/2021 05/31/2021 Grayson angina 05/18/2021 05/19/2021 Acute respiratory failure with hypoxia 05/31/2021 Blepharitis of both eyes 12/27/2015 016 Meibomianitis 12/14/2015 01/03/2016 Meibomitis 09/06/2015 11/02/2015 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 05/13/2014 08/16/2015 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 05/13/2014 08/16/2015 Other and combined forms of senile cataract - Benito th Eyes 05/13/2014 08/16/2015 Tear film insufficiency, unspecified - Both Eyes 05/13/2014 01/03/2016 Candidiasis, intertrigo 06/08/2013 10/16/19 22 Cholelithiasis 06/17/2012 06/24/2013 Goiter, unspecified 12/11/2010 01/15/2012 Dizziness and giddiness 02/26/2010 12/12/19 11 Primary localized osteoarthrosis, lower leg 01/2112/11/2010 Anxiety state, unspecified 06/07/200512/11 Depressive disorder, not elsewhere classified 12/11/2010 Carpal tunnel syndrome 06/07/2005 1 Obesity, Class III, BMI 40-49.9 (morbid obesity) 06/07/2005 09/12/2021 documented as of this encounter (statuses as of 05/13/2022) [facility] Narrative* Problem Noted Date Resolved Date Hypokalemia 05/30/2021 05/31/2021 Hyponatremia 05/30/2021 05/31/2021 Delirium 05/28/2021 05/31/2021 Angioedema 05/19/2021 05/31/2021 Grayson angina 05/18/2021 05/19/2021 Acute respiratory failure with hypoxia 05/31/2021 Blepharitis of both eyes 12/27/2015 016 Meibomianitis 12/14/2015 01/03/2016 Meibomitis 09/06/2015 11/02/2015 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 05/13/2014 08/16/2015 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 05/13/2014 08/16/2015 Other and combined forms of senile cataract - Benito th Eyes 05/13/2014 08/16/2015 Tear film insufficiency, unspecified - Both Eyes 05/13/2014 01/03/2016 Candidiasis, intertrigo 06/08/2013 10/16/19 22 Cholelithiasis 06/17/2012 06/24/2013 Goiter, unspecified 12/11/2010 01/15/2012 Dizziness and giddiness 02/26/2010 12/12/19 11 Primary localized osteoarthrosis, lower leg 01/2112/11/2010 Anxiety state, unspecified 06/07/200512/11 Depressive disorder, not elsewhere classified 12/11/2010 Carpal tunnel syndrome 06/07/2005 1 Obesity, Class III, BMI 40-49.9 (morbid obesity) 06/07/2005 09/12/2021 documented as of this encounter (statuses as of 05/13/2022) [facility] Narrative* Problem Noted Date Resolved Date Hypokalemia 05/30/2021 05/31/2021 Hyponatremia 05/30/2021 05/31/2021 Delirium 05/28/2021 05/31/2021 Angioedema 05/19/2021 05/31/2021 Grayson angina 05/18/2021 05/19/2021 Acute respiratory failure with hypoxia 05/31/2021 Blepharitis of both eyes 12/27/2015 016 Meibomianitis 12/14/2015 01/03/2016 Meibomitis 09/06/2015 11/02/2015 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 05/13/2014 08/16/2015 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 05/13/2014 08/16/2015 Other and combined forms of senile cataract - Benito th Eyes 05/13/2014 08/16/2015 Tear film insufficiency, unspecified - Both Eyes 05/13/2014 01/03/2016 Candidiasis, intertrigo 06/08/2013 10/16/19 22 Cholelithiasis 06/17/2012 06/24/2013 Goiter, unspecified 12/11/2010 01/15/2012 Dizziness and giddiness 02/26/2010 12/12/19 11 Primary localized osteoarthrosis, lower leg 01/2112/11/2010 Anxiety state, unspecified 06/07/200512/11 Depressive disorder, not elsewhere classified 12/11/2010 Carpal tunnel syndrome 06/07/2005 1 Obesity, Class III, BMI 40-49.9 (morbid obesity) 06/07/2005 09/12/2021 documented as of this encounter (statuses as of 05/14/2022) [facility] Narrative* Problem Noted Date Resolved Date Hypokalemia 05/30/2021 05/31/2021 Hyponatremia 05/30/2021 05/31/2021 Delirium 05/28/2021 05/31/2021 Angioedema 05/19/2021 05/31/2021 Grayson angina 05/18/2021 05/19/2021 Acute respiratory failure with hypoxia 05/31/2021 Blepharitis of both eyes 12/27/2015 016 Meibomianitis 12/14/2015 01/03/2016 Meibomitis 09/06/2015 11/02/2015 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 05/13/2014 08/16/2015 Glaucomatous atrophy (cupping) of optic disc - B ot Eyes 05/13/2014 08/16/2015 Other and combined forms of senile cataract - Benito th Eyes 05/13/2014 08/16/2015 Tear film insufficiency, unspecified - Both Eyes 05/13/2014 01/03/2016 Candidiasis, intertrigo 06/08/2013 10/16/19 22 Cholelithiasis 06/17/2012 06/24/2013 Goiter, unspecified 12/11/2010 01/15/2012 Dizziness and giddiness 02/26/2010 12/12/19 11 Primary localized osteoarthrosis, lower leg 01/2112/11/2010 Anxiety state, unspecified 06/07/200512/11 Depressive disorder, not elsewhere classified 12/11/2010 Carpal tunnel syndrome 06/07/2005 1 Obesity, Class III, BMI 40-49.9 (morbid obesity) 06/07/2005 09/12/2021 documented as of this encounter (statuses as of 05/15/2022) [facility] History of Past illness Narrative* Problem Noted Date Resolved Date Hypokalemia 05/30/2021 05/31/2021 Hyponatremia 05/30/2021 05/31/2021 Delirium 05/28/2021 05/31/2021 Angioedema 05/19/2021 05/31/2021 Grayson angina 05/18/2021 05/19/2021 Acute respiratory failure with hypoxia 05/3105/31/2021 Blepharitis of both eyes 12/27/2015 016 Meibomianitis 12/14/2015 01/03/2016 Meibomitis 09/06/2015 11/02/2015 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 05/13/2014 08/16/2015 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 05/13/2014 08/16/2015 Other and combined forms of senile cataract - Benito th Eyes 05/13/2014 08/16/2015 Tear film insufficiency, unspecified - Both Eyes 05/13/2014 01/03/2016 Candidiasis, intertrigo 06/08/2013 10/16/19 22 Cholelithiasis 06/17/2012 06/24/2013 Goiter, unspecified 12/11/2010 01/15/2012 Dizziness and giddiness 02/26/2010 12/12/19 11 Primary localized osteoarthrosis, lower leg 01/2112/11/2010 Anxiety state, unspecified 06/07/200512/11 Depressive disorder, not elsewhere classified 12/11/2010 Carpal tunnel syndrome 06/07/2005 1 Obesity, Class III, BMI 40-49.9 (morbid obesity) 06/07/2005 09/12/2021 documented as of this encounter (statuses as of 05/21/2022) [facility] History of Past illness Narrative* Problem Noted Date Resolved Date Hypokalemia 05/30/2021 05/31/2021 Hyponatremia 05/30/2021 05/31/2021 Delirium 05/28/2021 05/31/2021 Angioedema 05/19/2021 05/31/2021 Grayson angina 05/18/2021 05/19/2021 Acute respiratory failure with hypoxia 05/31/2021 Blepharitis of both eyes 12/27/2015 016 Meibomianitis 12/14/2015 01/03/2016 Meibomitis 09/06/2015 11/02/2015 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 05/13/2014 08/16/2015 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 05/13/2014 08/16/2015 Other and combined forms of senile cataract - Benito th Eyes 05/13/2014 08/16/2015 Tear film insufficiency, unspecified - Both Eyes 05/13/2014 01/03/2016 Candidiasis, intertrigo 06/08/2013 10/16/19 22 Cholelithiasis 06/17/2012 06/24/2013 Goiter, unspecified 12/11/2010 01/15/2012 Dizziness and giddiness 02/26/2010 12/12/19 11 Primary localized osteoarthrosis, lower leg 01/2112/11/2010 Anxiety state, unspecified 06/07/200512/11 Depressive disorder, not elsewhere classified 12/11/2010 Carpal tunnel syndrome 06/07/2005 1 Obesity, Class III, BMI 40-49.9 (morbid obesity) 06/07/2005 09/12/2021 documented as of this encounter (statuses as of 05/22/2022) [facility] History of Past illness Narrative* Problem Noted Date Resolved Date Hypokalemia 05/30/2021 05/31/2021 Hyponatremia 05/30/2021 05/31/2021 Delirium 05/28/2021 05/31/2021 Angioedema 05/19/2021 05/31/2021 Grayson angina 05/18/2021 05/19/2021 Acute respiratory failure with hypoxia 05/31/2021 Blepharitis of both eyes 12/27/2015 016 Meibomianitis 12/14/2015 01/03/2016 Meibomitis 09/06/2015 11/02/2015 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 05/13/2014 08/16/2015 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 05/13/2014 08/16/2015 Other and combined forms of senile cataract - Benito th Eyes 05/13/2014 08/16/2015 Tear film insufficiency, unspecified - Both Eyes 05/13/2014 01/03/2016 Candidiasis, intertrigo 06/08/2013 10/16/19 22 Cholelithiasis 06/17/2012 06/24/2013 Goiter, unspecified 12/11/2010 01/15/2012 Dizziness and giddiness 02/26/2010 12/12/19 11 Primary localized osteoarthrosis, lower leg 01/2112/11/2010 Anxiety state, unspecified 06/07/200512/11 Depressive disorder, not elsewhere classified 12/11/2010 Carpal tunnel syndrome 06/07/2005 1 Obesity, Class III, BMI 40-49.9 (morbid obesity) 06/07/2005 09/12/2021 documented as of this encounter (statuses as of 05/22/2022) [facility] History of Past illness Narrative* Problem Noted Date Resolved Date Hypokalemia 05/30/2021 05/31/2021 Hyponatremia 05/30/2021 05/31/2021 Delirium 05/28/2021 05/31/2021 Angioedema 05/19/2021 05/31/2021 Grayson angina 05/18/2021 05/19/2021 Acute respiratory failure with hypoxia 05/31/2021 Blepharitis of both eyes 12/27/2015 016 Meibomianitis 12/14/2015 01/03/2016 Meibomitis 09/06/2015 11/02/2015 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 05/13/2014 08/16/2015 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 05/13/2014 08/16/2015 Other and combined forms of senile cataract - Benito th Eyes 05/13/2014 08/16/2015 Tear film insufficiency, unspecified - Both Eyes 05/13/2014 01/03/2016 Candidiasis, intertrigo 06/08/2013 10/16/19 22 Cholelithiasis 06/17/2012 06/24/2013 Goiter, unspecified 12/11/2010 01/15/2012 Dizziness and giddiness 02/26/2010 12/12/19 11 Primary localized osteoarthrosis, lower leg 01/2112/11/2010 Anxiety state, unspecified 06/07/200512/11 Depressive disorder, not elsewhere classified 12/11/2010 Carpal tunnel syndrome 06/07/2005 1 Obesity, Class III, BMI 40-49.9 (morbid obesity) 06/07/2005 09/12/2021 documented as of this encounter (statuses as of 05/23/2022) [facility] History of Past illness Narrative* Problem Noted Date Resolved Date Hypokalemia 05/30/2021 05/31/2021 Hyponatremia 05/30/2021 05/31/2021 Delirium 05/28/2021 05/31/2021 Angioedema 05/19/2021 05/31/2021 Grayson angina 05/18/2021 05/19/2021 Acute respiratory failure with hypoxia 05/31/2021 Blepharitis of both eyes 12/27/2015 016 Meibomianitis 12/14/2015 01/03/2016 Meibomitis 09/06/2015 11/02/2015 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 05/13/2014 08/16/2015 Glaucomatous atrophy (cupping) of optic disc - B ot Eyes 05/13/2014 08/16/2015 Other and combined forms of senile cataract - Benito th Eyes 05/13/2014 08/16/2015 Tear film insufficiency, unspecified - Both Eyes 05/13/2014 01/03/2016 Candidiasis, intertrigo 06/08/2013 10/16/19 22 Cholelithiasis 06/17/2012 06/24/2013 Goiter, unspecified 12/11/2010 01/15/2012 Dizziness and giddiness 02/26/2010 12/12/19 11 Primary localized osteoarthrosis, lower leg 01/2112/11/2010 Anxiety state, unspecified 06/07/200512/11 Depressive disorder, not elsewhere classified 12/11/2010 Carpal tunnel syndrome 06/07/2005 1 Obesity, Class III, BMI 40-49.9 (morbid obesity) 06/07/2005 09/12/2021 documented as of this encounter (statuses as of 05/28/2022) [facility] History of Past illness Narrative* Problem Noted Date Resolved Date Hypokalemia 05/30/2021 05/31/2021 Hyponatremia 05/30/2021 05/31/2021 Delirium 05/28/2021 05/31/2021 Angioedema 05/19/2021 05/31/2021 Grayson angina 05/18/2021 05/19/2021 Acute respiratory failure with hypoxia 05/31/2021 Blepharitis of both eyes 12/27/2015 016 Meibomianitis 12/14/2015 01/03/2016 Meibomitis 09/06/2015 11/02/2015 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 05/13/2014 08/16/2015 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 05/13/2014 08/16/2015 Other and combined forms of senile cataract - Benito th Eyes 05/13/2014 08/16/2015 Tear film insufficiency, unspecified - Both Eyes 05/13/2014 01/03/2016 Candidiasis, intertrigo 06/08/2013 10/16/19 22 Cholelithiasis 06/17/2012 06/24/2013 Goiter, unspecified 12/11/2010 01/15/2012 Dizziness and giddiness 02/26/2010 12/12/19 11 Primary localized osteoarthrosis, lower leg 01/2112/11/2010 Anxiety state, unspecified 06/07/200512/11 Depressive disorder, not elsewhere classified 12/11/2010 Carpal tunnel syndrome 06/07/2005 1 Obesity, Class III, BMI 40-49.9 (morbid obesity) 06/07/2005 09/12/2021 documented as of this encounter (statuses as of 05/28/2022) [facility] History of Past illness Narrative* Problem Noted Date Resolved Date Hypokalemia 05/30/2021 05/31/2021 Hyponatremia 05/30/2021 05/31/2021 Delirium 05/28/2021 05/31/2021 Angioedema 05/19/2021 05/31/2021 Grayson angina 05/18/2021 05/19/2021 Acute respiratory failure with hypoxia 05/31/2021 Blepharitis of both eyes 12/27/2015 016 Meibomianitis 12/14/2015 01/03/2016 Meibomitis 09/06/2015 11/02/2015 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 05/13/2014 08/16/2015 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 05/13/2014 08/16/2015 Other and combined forms of senile cataract - Benito th Eyes 05/13/2014 08/16/2015 Tear film insufficiency, unspecified - Both Eyes 05/13/2014 01/03/2016 Candidiasis, intertrigo 06/08/2013 10/16/19 22 Cholelithiasis 06/17/2012 06/24/2013 Goiter, unspecified 12/11/2010 01/15/2012 Dizziness and giddiness 02/26/2010 12/12/19 11 Primary localized osteoarthrosis, lower leg 01/2112/11/2010 Anxiety state, unspecified 06/07/200512/11 Depressive disorder, not elsewhere classified 12/11/2010 Carpal tunnel syndrome 06/07/2005 1 Obesity, Class III, BMI 40-49.9 (morbid obesity) 06/07/2005 09/12/2021 documented as of this encounter (statuses as of 05/28/2022) [facility] History of Past illness Narrative* Problem Noted Date Resolved Date Hypokalemia 05/30/2021 05/31/2021 Hyponatremia 05/30/2021 05/31/2021 Delirium 05/28/2021 05/31/2021 Angioedema 05/19/2021 05/31/2021 Grayson angina 05/18/2021 05/19/2021 Acute respiratory failure with hypoxia 05/31/2021 Blepharitis of both eyes 12/27/2015 016 Meibomianitis 12/14/2015 01/03/2016 Meibomitis 09/06/2015 11/02/2015 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 05/13/2014 08/16/2015 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 05/13/2014 08/16/2015 Other and combined forms of senile cataract - Benito th Eyes 05/13/2014 08/16/2015 Tear film insufficiency, unspecified - Both Eyes 05/13/2014 01/03/2016 Candidiasis, intertrigo 06/08/2013 10/16/19 Cholelithiasis 06/17/2012 06/24/2013 Goiter, unspecified 12/11/2010 01/15/2012 Dizziness and giddiness 02/26/2010 12/12/19 11 Primary localized osteoarthrosis, lower leg 01/2112/11/2010 Anxiety state, unspecified 06/07/200512/11 Depressive disorder, not elsewhere classified 12/11/2010 Carpal tunnel syndrome 06/07/2005 1 Obesity, Class III, BMI 40-49.9 (morbid obesity) 06/07/2005 09/12/2021 documented as of this encounter (statuses as of 05/31/2022) [facility] History of Past illness Narrative* Problem Noted Date Resolved Date Hypokalemia 05/30/2021 05/31/2021 Hyponatremia 05/30/2021 05/31/2021 Delirium 05/28/2021 05/31/2021 Angioedema 05/19/2021 05/31/2021 Grayson angina 05/18/2021 05/19/2021 Acute respiratory failure with hypoxia 05/31/2021 Blepharitis of both eyes 12/27/2015 016 Meibomianitis 12/14/2015 01/03/2016 Meibomitis 09/06/2015 11/02/2015 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 05/13/2014 08/16/2015 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 05/13/2014 08/16/2015 Other and combined forms of senile cataract - Benito th Eyes 05/13/2014 08/16/2015 Tear film insufficiency, unspecified - Both Eyes 05/13/2014 01/03/2016 Candidiasis, intertrigo 06/08/2013 10/16/19 22 Cholelithiasis 06/17/2012 06/24/2013 Goiter, unspecified 12/11/2010 01/15/2012 Dizziness and giddiness 02/26/2010 12/12/19 11 Primary localized osteoarthrosis, lower leg 01/2112/11/2010 Anxiety state, unspecified 06/07/200512/11 Depressive disorder, not elsewhere classified 12/11/2010 Carpal tunnel syndrome 06/07/2005 1 Obesity, Class III, BMI 40-49.9 (morbid obesity) 06/07/2005 09/12/2021 documented as of this encounter (statuses as of 05/31/2022) [facility] History of Past illness Narrative* Problem Noted Date Resolved Date Hypokalemia 05/30/2021 05/31/2021 Hyponatremia 05/30/2021 05/31/2021 Delirium 05/28/2021 05/31/2021 Angioedema 05/19/2021 05/31/2021 Grayson angina 05/18/2021 05/19/2021 Acute respiratory failure with hypoxia 05/31/2021 Blepharitis of both eyes 12/27/2015 016 Meibomianitis 12/14/2015 01/03/2016 Meibomitis 09/06/2015 11/02/2015 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 05/13/2014 08/16/2015 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 05/13/2014 08/16/2015 Other and combined forms of senile cataract - Benito Eyes 05/13/2014 08/16/2015 Tear film insufficiency, unspecified - Both Eyes 05/13/2014 01/03/2016 Candidiasis, intertrigo 06/08/2013 10/16/19 22 Cholelithiasis 06/17/2012 06/24/2013 Goiter, unspecified 12/11/2010 01/15/2012 Dizziness and giddiness 02/26/2010 12/12/19 11 Primary localized osteoarthrosis, lower leg 01/2112/11/2010 Anxiety state, unspecified 06/07/200512/11 Depressive disorder, not elsewhere classified 12/11/2010 Carpal tunnel syndrome 06/07/2005 1 Obesity, Class III, BMI 40-49.9 (morbid obesity) 06/07/2005 09/12/2021 documented as of this encounter (statuses as of 05/31/2022) [facility] History of Past illness Narrative* Problem Noted Date Resolved Date Hypokalemia 05/30/2021 05/31/2021 Hyponatremia 05/30/2021 05/31/2021 Delirium 05/28/2021 05/31/2021 Angioedema 05/19/2021 05/31/2021 Grayson angina 05/18/2021 05/19/2021 Acute respiratory failure with hypoxia 05/31/2021 Blepharitis of both eyes 12/27/2015 016 Meibomianitis 12/14/2015 01/03/2016 Meibomitis 09/06/2015 11/02/2015 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 05/13/2014 08/16/2015 Glaucomatous atrophy (cupping) of optic disc - B [facility] Eyes 05/13/2014 08/16/2015 Other and combined forms of senile cataract - Benito th Eyes 05/13/2014 08/16/2015 Tear film insufficiency, unspecified - Both Eyes 05/13/2014 01/03/2016 Candidiasis, intertrigo 06/08/2013 10/16/19 22 Cholelithiasis 06/17/2012 06/24/2013 Goiter, unspecified 12/11/2010 01/15/2012 Dizziness and giddiness 02/26/2010 12/12/19 11 Primary localized osteoarthrosis, lower leg 01/2112/11/2010 Anxiety state, unspecified 06/07/200512/11 Depressive disorder, not elsewhere classified 12/11/2010 Carpal tunnel syndrome 06/07/2005 1 Obesity, Class III, BMI 40-49.9 (morbid obesity) 06/07/2005 09/12/2021 documented as of this encounter (statuses as of 06/10/2022) [facility] History of Past illness Narrative* Problem Noted Date Resolved Date Hypokalemia 05/30/2021 05/31/2021 Hyponatremia 05/30/2021 05/31/2021 Delirium 05/28/2021 05/31/2021 Angioedema 05/19/2021 05/31/2021 Grayson angina 05/18/2021 05/19/2021 Acute respiratory failure with hypoxia 05/31/2021 Blepharitis of both eyes 12/27/2015 016 Meibomianitis 12/14/2015 01/03/2016 Meibomitis 09/06/2015 11/02/2015 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 05/13/2014 08/16/2015 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 05/13/2014 08/16/2015 Other and combined forms of senile cataract - Benito th Eyes 05/13/2014 08/16/2015 Tear film insufficiency, unspecified - Both Eyes 05/13/2014 01/03/2016 Candidiasis, intertrigo 06/08/2013 10/16/19 22 Cholelithiasis 06/17/2012 06/24/2013 Goiter, unspecified 12/11/2010 01/15/2012 Dizziness and giddiness 02/26/2010 12/12/19 11 Primary localized osteoarthrosis, lower leg 01/2112/11/2010 Anxiety state, unspecified 06/07/200512/11 Depressive disorder, not elsewhere classified 12/11/2010 Carpal tunnel syndrome 06/07/2005 1 Obesity, Class III, BMI 40-49.9 (morbid obesity) 06/07/2005 09/12/2021 documented as of this encounter (statuses as of 06/10/2022) [facility] History of Past illness Narrative* Problem Noted Date Resolved Date Hypokalemia 05/30/2021 05/31/2021 Hyponatremia 05/30/2021 05/31/2021 Delirium 05/28/2021 05/31/2021 Angioedema 05/19/2021 05/31/2021 Grayson angina 05/18/2021 05/19/2021 Acute respiratory failure with hypoxia 05/31/2021 Blepharitis of both eyes 12/27/2015 016 Meibomianitis 12/14/2015 01/03/2016 Meibomitis 09/06/2015 11/02/2015 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 05/13/2014 08/16/2015 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 05/13/2014 08/16/2015 Other and combined forms of senile cataract - Benito th Eyes 05/13/2014 08/16/2015 Tear film insufficiency, unspecified - Both Eyes 05/13/2014 01/03/2016 Candidiasis, intertrigo 06/08/2013 10/16/19 22 Cholelithiasis 06/17/2012 06/24/2013 Goiter, unspecified 12/11/2010 01/15/2012 Dizziness and giddiness 02/26/2010 12/12/19 11 Primary localized osteoarthrosis, lower leg 01/2112/11/2010 Anxiety state, unspecified 06/07/200512/11 Depressive disorder, not elsewhere classified 12/11/2010 Carpal tunnel syndrome 06/07/2005 1 Obesity, Class III, BMI 40-49.9 (morbid obesity) 06/07/2005 09/12/2021 documented as of this encounter (statuses as of 06/11/2022) [facility] History of Past illness Narrative* Problem Noted Date Resolved Date Hypokalemia 05/30/2021 05/31/2021 Hyponatremia 05/30/2021 05/31/2021 Delirium 05/28/2021 05/31/2021 Angioedema 05/19/2021 05/31/2021 Grayson angina 05/18/2021 05/19/2021 Acute respiratory failure with hypoxia 05/31/2021 Blepharitis of both eyes 12/27/2015 016 Meibomianitis 12/14/2015 01/03/2016 Meibomitis 09/06/2015 11/02/2015 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 05/13/2014 08/16/2015 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 05/13/2014 08/16/2015 Other and combined forms of senile cataract - Benito th Eyes 05/13/2014 08/16/2015 Tear film insufficiency, unspecified - Both Eyes 05/13/2014 01/03/2016 Candidiasis, intertrigo 06/08/2013 10/16/19 22 Cholelithiasis 06/17/2012 06/24/2013 Goiter, unspecified 12/11/2010 01/15/2012 Dizziness and giddiness 02/26/2010 12/12/19 11 Primary localized osteoarthrosis, lower leg 01/2112/11/2010 Anxiety state, unspecified 06/07/200512/11 Depressive disorder, not elsewhere classified 12/11/2010 Carpal tunnel syndrome 06/07/2005 1 Obesity, Class III, BMI 40-49.9 (morbid obesity) 06/07/2005 09/12/2021 documented as of this encounter (statuses as of 06/19/2022) [facility] History of Past illness Narrative* Problem Noted Date Resolved Date Hypokalemia 05/30/2021 05/31/2021 Hyponatremia 05/30/2021 05/31/2021 Delirium 05/28/2021 05/31/2021 Angioedema 05/19/2021 05/31/2021 Grayson angina 05/18/2021 05/19/2021 Acute respiratory failure with hypoxia 05/31/2021 Blepharitis of both eyes 12/27/2015 016 Meibomianitis 12/14/2015 01/03/2016 Meibomitis 09/06/2015 11/02/2015 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 05/13/2014 08/16/2015 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 05/13/2014 08/16/2015 Other and combined forms of senile cataract - Benito th Eyes 05/13/2014 08/16/2015 Tear film insufficiency, unspecified - Both Eyes 05/13/2014 01/03/2016 Candidiasis, intertrigo 06/08/2013 10/16/19 22 Cholelithiasis 06/17/2012 06/24/2013 Goiter, unspecified 12/11/2010 01/15/2012 Dizziness and giddiness 02/26/2010 12/12/19 11 Primary localized osteoarthrosis, lower leg 01/2112/11/2010 Anxiety state, unspecified 06/07/200512/11 Depressive disorder, not elsewhere classified 12/11/2010 Carpal tunnel syndrome 06/07/2005 1 Obesity, Class III, BMI 40-49.9 (morbid obesity) 06/07/2005 09/12/2021 documented as of this encounter (statuses as of 06/27/2022) [facility] History of Past illness Narrative* Problem Noted Date Resolved Date Hypokalemia 05/30/2021 05/31/2021 Hyponatremia 05/30/2021 05/31/2021 Delirium 05/28/2021 05/31/2021 Angioedema 05/19/2021 05/31/2021 Grayson angina 05/18/2021 05/19/2021 Acute respiratory failure with hypoxia 05/31/2021 Blepharitis of both eyes 12/27/2015 016 Meibomianitis 12/14/2015 01/03/2016 Meibomitis 09/06/2015 11/02/2015 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 05/13/2014 08/16/2015 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 05/13/2014 08/16/2015 Other and combined forms of senile cataract - Benito th Eyes 05/13/2014 08/16/2015 Tear film insufficiency, unspecified - Both Eyes 05/13/2014 01/03/2016 Candidiasis, intertrigo 06/08/2013 10/16/19 22 Cholelithiasis 06/17/2012 06/24/2013 Goiter, unspecified 12/11/2010 01/15/2012 Dizziness and giddiness 02/26/2010 12/12/19 11 Primary localized osteoarthrosis, lower leg 01/2112/11/2010 Anxiety state, unspecified 06/07/200512/11 Depressive disorder, not elsewhere classified 12/11/2010 Carpal tunnel syndrome 06/07/2005 1 Obesity, Class III, BMI 40-49.9 (morbid obesity) 06/07/2005 09/12/2021 documented as of this encounter (statuses as of 06/28/2022) [facility] History of Past illness Narrative* Problem Noted Date Resolved Date Hypokalemia 05/30/2021 05/31/2021 Hyponatremia 05/30/2021 05/31/2021 Delirium 05/28/2021 05/31/2021 Angioedema 05/19/2021 05/31/2021 Grayson angina 05/18/2021 05/19/2021 Acute respiratory failure with hypoxia 05/31/2021 Blepharitis of both eyes 12/27/2015 016 Meibomianitis 12/14/2015 01/03/2016 Meibomitis 09/06/2015 11/02/2015 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 05/13/2014 08/16/2015 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 05/13/2014 08/16/2015 Other and combined forms of senile cataract - Benito th Eyes 05/13/2014 08/16/2015 Tear film insufficiency, unspecified - Both Eyes 05/13/2014 01/03/2016 Candidiasis, intertrigo 06/08/2013 10/16/19 22 Cholelithiasis 06/17/2012 06/24/2013 Goiter, unspecified 12/11/2010 01/15/2012 Dizziness and giddiness 02/26/2010 12/12/19 11 Primary localized osteoarthrosis, lower leg 01/2112/11/2010 Anxiety state, unspecified 06/07/200512/11 Depressive disorder, not elsewhere classified 12/11/2010 Carpal tunnel syndrome 06/07/2005 1 Obesity, Class III, BMI 40-49.9 (morbid obesity) 06/07/2005 09/12/2021 documented as of this encounter (statuses as of 06/28/2022) [facility] History of Past illness Narrative* Problem Noted Date Resolved Date Hypokalemia 05/30/2021 05/31/2021 Hyponatremia 05/30/2021 05/31/2021 Delirium 05/28/2021 05/31/2021 Angioedema 05/19/2021 05/31/2021 Grayson angina 05/18/2021 05/19/2021 Acute respiratory failure with hypoxia 05/31/2021 Blepharitis of both eyes 12/27/2015 016 Meibomianitis 12/14/2015 01/03/2016 Meibomitis 09/06/2015 11/02/2015 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 05/13/2014 08/16/2015 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 05/13/2014 08/16/2015 Other and combined forms of senile cataract - Benito th Eyes 05/13/2014 08/16/2015 Tear film insufficiency, unspecified - Both Eyes 05/13/2014 01/03/2016 Candidiasis, intertrigo 06/08/2013 10/16/19 22 Cholelithiasis 06/17/2012 06/24/2013 Goiter, unspecified 12/11/2010 01/15/2012 Dizziness and giddiness 02/26/2010 12/12/19 11 Primary localized osteoarthrosis, lower leg 01/2112/11/2010 Anxiety state, unspecified 06/07/200512/11 Depressive disorder, not elsewhere classified 12/11/2010 Carpal tunnel syndrome 06/07/2005 1 Obesity, Class III, BMI 40-49.9 (morbid obesity) 06/07/2005 09/12/2021 documented as of this encounter (statuses as of 07/02/2022) [facility] History of Past illness Narrative* Problem Noted Date Resolved Date Hypokalemia 05/30/2021 05/31/2021 Hyponatremia 05/30/2021 05/31/2021 Delirium 05/28/2021 05/31/2021 Angioedema 05/19/2021 05/31/2021 Grayson angina 05/18/2021 05/19/2021 Acute respiratory failure with hypoxia 05/31/2021 Blepharitis of both eyes 12/27/2015 016 Meibomianitis 12/14/2015 01/03/2016 Meibomitis 09/06/2015 11/02/2015 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 05/13/2014 08/16/2015 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 05/13/2014 08/16/2015 Other and combined forms of senile cataract - Benito th Eyes 05/13/2014 08/16/2015 Tear film insufficiency, unspecified - Both Eyes 05/13/2014 01/03/2016 Candidiasis, intertrigo 06/08/2013 10/16/19 22 Cholelithiasis 06/17/2012 06/24/2013 Goiter, unspecified 12/11/2010 01/15/2012 Dizziness and giddiness 02/26/2010 12/12/19 11 Primary localized osteoarthrosis, lower leg 01/2112/11/2010 Anxiety state, unspecified 06/07/200512/11 Depressive disorder, not elsewhere classified 12/11/2010 Carpal tunnel syndrome 06/07/2005 1 Obesity, Class III, BMI 40-49.9 (morbid obesity) 06/07/2005 09/12/2021 documented as of this encounter (statuses as of 07/02/2022) [facility] History of Past illness Narrative* Problem Noted Date Resolved Date Hypokalemia 05/30/2021 05/31/2021 Hyponatremia 05/30/2021 05/31/2021 Delirium 05/28/2021 05/31/2021 Angioedema 05/19/2021 05/31/2021 Grayson angina 05/18/2021 05/19/2021 Acute respiratory failure with hypoxia 05/31/2021 Blepharitis of both eyes 12/27/2015 016 Meibomianitis 12/14/2015 01/03/2016 Meibomitis 09/06/2015 11/02/2015 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 05/13/2014 08/16/2015 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 05/13/2014 08/16/2015 Other and combined forms of senile cataract - Benito th Eyes 05/13/2014 08/16/2015 Tear film insufficiency, unspecified - Both Eyes 05/13/2014 01/03/2016 Candidiasis, intertrigo 06/08/2013 10/16/19 22 Cholelithiasis 06/17/2012 06/24/2013 Goiter, unspecified 12/11/2010 01/15/2012 Dizziness and giddiness 02/26/2010 12/12/19 11 Primary localized osteoarthrosis, lower leg 01/2112/11/2010 Anxiety state, unspecified 06/07/200512/11 Depressive disorder, not elsewhere classified 12/11/2010 Carpal tunnel syndrome 06/07/2005 1 Obesity, Class III, BMI 40-49.9 (morbid obesity) 06/07/2005 09/12/2021 documented as of this encounter (statuses as of 07/08/2022) [facility] History of Past illness Narrative* Problem Noted Date Resolved Date Hypokalemia 05/30/2021 05/31/2021 Hyponatremia 05/30/2021 05/31/2021 Delirium 05/28/2021 05/31/2021 Angioedema 05/19/2021 05/31/2021 Grayson angina 05/18/2021 05/19/2021 Acute respiratory failure with hypoxia 05/31/2021 Blepharitis of both eyes 12/27/2015 016 Meibomianitis 12/14/2015 01/03/2016 Meibomitis 09/06/2015 11/02/2015 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 05/13/2014 08/16/2015 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 05/13/2014 08/16/2015 Other and combined forms of senile cataract - Benito th Eyes 05/13/2014 08/16/2015 Tear film insufficiency, unspecified - Both Eyes 05/13/2014 01/03/2016 Candidiasis, intertrigo 06/08/2013 10/16/19 22 Cholelithiasis 06/17/2012 06/24/2013 Goiter, unspecified 12/11/2010 01/15/2012 Dizziness and giddiness 02/26/2010 12/12/19 11 Primary localized osteoarthrosis, lower leg 01/2112/11/2010 Anxiety state, unspecified 06/07/200512/11 Depressive disorder, not elsewhere classified 12/11/2010 Carpal tunnel syndrome 06/07/2005 1 Obesity, Class III, BMI 40-49.9 (morbid obesity) 06/07/2005 09/12/2021 documented as of this encounter (statuses as of 07/15/2022) [facility] History of Past illness Narrative* Problem Noted Date Resolved Date Hypokalemia 05/30/2021 05/31/2021 Hyponatremia 05/30/2021 05/31/2021 Delirium 05/28/2021 05/31/2021 Angioedema 05/19/2021 05/31/2021 Grayson angina 05/18/2021 05/19/2021 Acute respiratory failure with hypoxia 05/31/2021 Blepharitis of both eyes 12/27/2015 016 Meibomianitis 12/14/2015 01/03/2016 Meibomitis 09/06/2015 11/02/2015 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 05/13/2014 08/16/2015 Glaucomatous atrophy (cupping) of optic disc - B ot Eyes 05/13/2014 08/16/2015 Other and combined forms of senile cataract - Benito th Eyes 05/13/2014 08/16/2015 Tear film insufficiency, unspecified - Both Eyes 05/13/2014 01/03/2016 Candidiasis, intertrigo 06/08/2013 10/16/19 22 Cholelithiasis 06/17/2012 06/24/2013 Goiter, unspecified 12/11/2010 01/15/2012 Dizziness and giddiness 02/26/2010 12/12/19 11 Primary localized osteoarthrosis, lower leg 01/2112/11/2010 Anxiety state, unspecified 06/07/200512/11 Depressive disorder, not elsewhere classified 12/11/2010 Carpal tunnel syndrome 06/07/2005 1 Obesity, Class III, BMI 40-49.9 (morbid obesity) 06/07/2005 09/12/2021 documented as of this encounter (statuses as of 07/23/2022) [facility] History of Past illness Narrative* Problem Noted Date Resolved Date Hypokalemia 05/30/2021 05/31/2021 Hyponatremia 05/30/2021 05/31/2021 Delirium 05/28/2021 05/31/2021 Angioedema 05/19/2021 05/31/2021 Grayson angina 05/18/2021 05/19/2021 Acute respiratory failure with hypoxia 05/31/2021 Blepharitis of both eyes 12/27/2015 016 Meibomianitis 12/14/2015 01/03/2016 Meibomitis 09/06/2015 11/02/2015 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 05/13/2014 08/16/2015 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 05/13/2014 08/16/2015 Other and combined forms of senile cataract - Benito th Eyes 05/13/2014 08/16/2015 Tear film insufficiency, unspecified - Both Eyes 05/13/2014 01/03/2016 Candidiasis, intertrigo 06/08/2013 10/16/19 22 Cholelithiasis 06/17/2012 06/24/2013 Goiter, unspecified 12/11/2010 01/15/2012 Dizziness and giddiness 02/26/2010 12/12/19 11 Primary localized osteoarthrosis, lower leg 01/2112/11/2010 Anxiety state, unspecified 06/07/200512/11 Depressive disorder, not elsewhere classified 12/11/2010 Carpal tunnel syndrome 06/07/2005 1 Obesity, Class III, BMI 40-49.9 (morbid obesity) 06/07/2005 09/12/2021 documented as of this encounter (statuses as of 07/23/2022) [facility] History of Past illness Narrative* Problem Noted Date Resolved Date Hypokalemia 05/30/2021 05/31/2021 Hyponatremia 05/30/2021 05/31/2021 Delirium 05/28/2021 05/31/2021 Angioedema 05/19/2021 05/31/2021 Grayson angina 05/18/2021 05/19/2021 Acute respiratory failure with hypoxia 05/31/2021 Blepharitis of both eyes 12/27/2015 016 Meibomianitis 12/14/2015 01/03/2016 Meibomitis 09/06/2015 11/02/2015 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 05/13/2014 08/16/2015 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 05/13/2014 08/16/2015 Other and combined forms of senile cataract - Benito th Eyes 05/13/2014 08/16/2015 Tear film insufficiency, unspecified - Both Eyes 05/13/2014 01/03/2016 Candidiasis, intertrigo 06/08/2013 10/16/19 Cholelithiasis 06/17/2012 06/24/2013 Goiter, unspecified 12/11/2010 01/15/2012 Dizziness and giddiness 02/26/2010 12/12/19 11 Primary localized osteoarthrosis, lower leg 01/2112/11/2010 Anxiety state, unspecified 06/07/200512/11 Depressive disorder, not elsewhere classified 12/11/2010 Carpal tunnel syndrome 06/07/2005 1 Obesity, Class III, BMI 40-49.9 (morbid obesity) 06/07/2005 09/12/2021 documented as of this encounter (statuses as of 07/24/2022) [facility] History of Past illness Narrative* Problem Noted Date Resolved Date Hypokalemia 05/30/2021 05/31/2021 Hyponatremia 05/30/2021 05/31/2021 Delirium 05/28/2021 05/31/2021 Angioedema 05/19/2021 05/31/2021 Grayson angina 05/18/2021 05/19/2021 Acute respiratory failure with hypoxia 05/31/2021 Blepharitis of both eyes 12/27/2015 016 Meibomianitis 12/14/2015 01/03/2016 Meibomitis 09/06/2015 11/02/2015 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 05/13/2014 08/16/2015 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 05/13/2014 08/16/2015 Other and combined forms of senile cataract - Benito th Eyes 05/13/2014 08/16/2015 Tear film insufficiency, unspecified - Both Eyes 05/13/2014 01/03/2016 Candidiasis, intertrigo 06/08/2013 10/16/19 22 Cholelithiasis 06/17/2012 06/24/2013 Goiter, unspecified 12/11/2010 01/15/2012 Dizziness and giddiness 02/26/2010 12/12/19 11 Primary localized osteoarthrosis, lower leg 01/2112/11/2010 Anxiety state, unspecified 06/07/200512/11 Depressive disorder, not elsewhere classified 12/11/2010 Carpal tunnel syndrome 06/07/2005 1 Obesity, Class III, BMI 40-49.9 (morbid obesity) 06/07/2005 09/12/2021 documented as of this encounter (statuses as of 07/26/2022) [facility] History of Past illness Narrative* Problem Noted Date Resolved Date Hypokalemia 05/30/2021 05/31/2021 Hyponatremia 05/30/2021 05/31/2021 Delirium 05/28/2021 05/31/2021 Angioedema 05/19/2021 05/31/2021 Grayson angina 05/18/2021 05/19/2021 Acute respiratory failure with hypoxia 05/31/2021 Blepharitis of both eyes 12/27/2015 016 Meibomianitis 12/14/2015 01/03/2016 Meibomitis 09/06/2015 11/02/2015 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 05/13/2014 08/16/2015 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 05/13/2014 08/16/2015 Other and combined forms of senile cataract - Benito th Eyes 05/13/2014 08/16/2015 Tear film insufficiency, unspecified - Both Eyes 05/13/2014 01/03/2016 Candidiasis, intertrigo 06/08/2013 10/16/19 22 Cholelithiasis 06/17/2012 06/24/2013 Goiter, unspecified 12/11/2010 01/15/2012 Dizziness and giddiness 02/26/2010 12/12/19 11 Primary localized osteoarthrosis, lower leg 01/2112/11/2010 Anxiety state, unspecified 06/07/200512/11 Depressive disorder, not elsewhere classified 12/11/2010 Carpal tunnel syndrome 06/07/2005 1 Obesity, Class III, BMI 40-49.9 (morbid obesity) 06/07/2005 09/12/2021 documented as of this encounter (statuses as of 07/31/2022) [facility] History of Past illness Narrative* Problem Noted Date Resolved Date Hypokalemia 05/30/2021 05/31/2021 Hyponatremia 05/30/2021 05/31/2021 Delirium 05/28/2021 05/31/2021 Angioedema 05/19/2021 05/31/2021 Grayson angina 05/18/2021 05/19/2021 Acute respiratory failure with hypoxia 05/31/2021 Blepharitis of both eyes 12/27/2015 016 Meibomianitis 12/14/2015 01/03/2016 Meibomitis 09/06/2015 11/02/2015 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 05/13/2014 08/16/2015 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 05/13/2014 08/16/2015 Other and combined forms of senile cataract - Benito th Eyes 05/13/2014 08/16/2015 Tear film insufficiency, unspecified - Both Eyes 05/13/2014 01/03/2016 Candidiasis, intertrigo 06/08/2013 10/16/19 22 Cholelithiasis 06/17/2012 06/24/2013 Goiter, unspecified 12/11/2010 01/15/2012 Dizziness and giddiness 02/26/2010 12/12/19 11 Primary localized osteoarthrosis, lower leg 01/2112/11/2010 Anxiety state, unspecified 06/07/200512/11 Depressive disorder, not elsewhere classified 12/11/2010 Carpal tunnel syndrome 06/07/2005 1 Obesity, Class III, BMI 40-49.9 (morbid obesity) 06/07/2005 09/12/2021 documented as of this encounter (statuses as of 08/01/2022) [facility] History of Past illness Narrative* Problem Noted Date Resolved Date Hypokalemia 05/30/2021 05/31/2021 Hyponatremia 05/30/2021 05/31/2021 Delirium 05/28/2021 05/31/2021 Angioedema 05/19/2021 05/31/2021 Grayson angina 05/18/2021 05/19/2021 Acute respiratory failure with hypoxia 05/31/2021 Blepharitis of both eyes 12/27/2015 016 Meibomianitis 12/14/2015 01/03/2016 Meibomitis 09/06/2015 11/02/2015 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 05/13/2014 08/16/2015 Glaucomatous atrophy (cupping) of optic disc - B [facility] Eyes 05/13/2014 08/16/2015 Other and combined forms of senile cataract - Benito th Eyes 05/13/2014 08/16/2015 Tear film insufficiency, unspecified - Both Eyes 05/13/2014 01/03/2016 Candidiasis, intertrigo 06/08/2013 10/16/19 22 Cholelithiasis 06/17/2012 06/24/2013 Goiter, unspecified 12/11/2010 01/15/2012 Dizziness and giddiness 02/26/2010 12/12/19 11 Primary localized osteoarthrosis, lower leg 01/2112/11/2010 Anxiety state, unspecified 06/07/200512/11 Depressive disorder, not elsewhere classified 12/11/2010 Carpal tunnel syndrome 06/07/2005 1 Obesity, Class III, BMI 40-49.9 (morbid obesity) 06/07/2005 09/12/2021 documented as of this encounter (statuses as of 08/05/2022) [facility] History of Past illness Narrative* Problem Noted Date Resolved Date Hypokalemia 05/30/2021 05/31/2021 Hyponatremia 05/30/2021 05/31/2021 Delirium 05/28/2021 05/31/2021 Angioedema 05/19/2021 05/31/2021 Grayson angina 05/18/2021 05/19/2021 Acute respiratory failure with hypoxia 05/31/2021 Blepharitis of both eyes 12/27/2015 016 Meibomianitis 12/14/2015 01/03/2016 Meibomitis 09/06/2015 11/02/2015 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 05/13/2014 08/16/2015 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 05/13/2014 08/16/2015 Other and combined forms of senile cataract - Benito th Eyes 05/13/2014 08/16/2015 Tear film insufficiency, unspecified - Both Eyes 05/13/2014 01/03/2016 Candidiasis, intertrigo 06/08/2013 10/16/19 22 Cholelithiasis 06/17/2012 06/24/2013 Goiter, unspecified 12/11/2010 01/15/2012 Dizziness and giddiness 02/26/2010 12/12/19 11 Primary localized osteoarthrosis, lower leg 01/2112/11/2010 Anxiety state, unspecified 06/07/200512/11 Depressive disorder, not elsewhere classified 12/11/2010 Carpal tunnel syndrome 06/07/2005 1 Obesity, Class III, BMI 40-49.9 (morbid obesity) 06/07/2005 09/12/2021 documented as of this encounter (statuses as of 08/06/2022) [facility] History of Past illness Narrative* Problem Noted Date Resolved Date Hypokalemia 05/30/2021 05/31/2021 Hyponatremia 05/30/2021 05/31/2021 Delirium 05/28/2021 05/31/2021 Angioedema 05/19/2021 05/31/2021 Grayson angina 05/18/2021 05/19/2021 Acute respiratory failure with hypoxia 05/31/2021 Blepharitis of both eyes 12/27/2015 016 Meibomianitis 12/14/2015 01/03/2016 Meibomitis 09/06/2015 11/02/2015 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 05/13/2014 08/16/2015 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 05/13/2014 08/16/2015 Other and combined forms of senile cataract - Benito th Eyes 05/13/2014 08/16/2015 Tear film insufficiency, unspecified - Both Eyes 05/13/2014 01/03/2016 Candidiasis, intertrigo 06/08/2013 10/16/19 22 Cholelithiasis 06/17/2012 06/24/2013 Goiter, unspecified 12/11/2010 01/15/2012 Dizziness and giddiness 02/26/2010 12/12/19 11 Primary localized osteoarthrosis, lower leg 01/2112/11/2010 Anxiety state, unspecified 06/07/200512/11 Depressive disorder, not elsewhere classified 12/11/2010 Carpal tunnel syndrome 06/07/2005 1 Obesity, Class III, BMI 40-49.9 (morbid obesity) 06/07/2005 09/12/2021 documented as of this encounter (statuses as of 08/12/2022) [facility] History of Past illness Narrative* Problem Noted Date Resolved Date Hypokalemia 05/30/2021 05/31/2021 Hyponatremia 05/30/2021 05/31/2021 Delirium 05/28/2021 05/31/2021 Angioedema 05/19/2021 05/31/2021 Grayson angina 05/18/2021 05/19/2021 Acute respiratory failure with hypoxia 05/31/2021 Blepharitis of both eyes 12/27/2015 016 Meibomianitis 12/14/2015 01/03/2016 Meibomitis 09/06/2015 11/02/2015 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 05/13/2014 08/16/2015 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 05/13/2014 08/16/2015 Other and combined forms of senile cataract - Benito th Eyes 05/13/2014 08/16/2015 Tear film insufficiency, unspecified - Both Eyes 05/13/2014 01/03/2016 Candidiasis, intertrigo 06/08/2013 10/16/19 22 Cholelithiasis 06/17/2012 06/24/2013 Goiter, unspecified 12/11/2010 01/15/2012 Dizziness and giddiness 02/26/2010 12/12/19 11 Primary localized osteoarthrosis, lower leg 01/2112/11/2010 Anxiety state, unspecified 06/07/200512/11 Depressive disorder, not elsewhere classified 12/11/2010 Carpal tunnel syndrome 06/07/2005 1 Obesity, Class III, BMI 40-49.9 (morbid obesity) 06/07/2005 09/12/2021 documented as of this encounter (statuses as of 08/19/2022) [facility] History of Past illness Narrative* Problem Noted Date Resolved Date Hypokalemia 05/30/2021 05/31/2021 Hyponatremia 05/30/2021 05/31/2021 Delirium 05/28/2021 05/31/2021 Angioedema 05/19/2021 05/31/2021 Grayson angina 05/18/2021 05/19/2021 Acute respiratory failure with hypoxia 05/31/2021 Blepharitis of both eyes 12/27/2015 016 Meibomianitis 12/14/2015 01/03/2016 Meibomitis 09/06/2015 11/02/2015 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 05/13/2014 08/16/2015 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 05/13/2014 08/16/2015 Other and combined forms of senile cataract - Benito th Eyes 05/13/2014 08/16/2015 Tear film insufficiency, unspecified - Both Eyes 05/13/2014 01/03/2016 Candidiasis, intertrigo 06/08/2013 10/16/19 22 Cholelithiasis 06/17/2012 06/24/2013 Goiter, unspecified 12/11/2010 01/15/2012 Dizziness and giddiness 02/26/2010 12/12/19 11 Primary localized osteoarthrosis, lower leg 01/2112/11/2010 Anxiety state, unspecified 06/07/200512/11 Depressive disorder, not elsewhere classified 12/11/2010 Carpal tunnel syndrome 06/07/2005 1 Obesity, Class III, BMI 40-49.9 (morbid obesity) 06/07/2005 09/12/2021 documented as of this encounter (statuses as of 09/01/2022) [facility] History of Past illness Narrative* Problem Noted Date Resolved Date Hypokalemia 05/30/2021 05/31/2021 Hyponatremia 05/30/2021 05/31/2021 Delirium 05/28/2021 05/31/2021 Angioedema 05/19/2021 05/31/2021 Grayson angina 05/18/2021 05/19/2021 Acute respiratory failure with hypoxia 05/31/2021 Blepharitis of both eyes 12/27/2015 016 Meibomianitis 12/14/2015 01/03/2016 Meibomitis 09/06/2015 11/02/2015 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 05/13/2014 08/16/2015 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 05/13/2014 08/16/2015 Other and combined forms of senile cataract - Benito th Eyes 05/13/2014 08/16/2015 Tear film insufficiency, unspecified - Both Eyes 05/13/2014 01/03/2016 Candidiasis, intertrigo 06/08/2013 10/16/19 22 Cholelithiasis 06/17/2012 06/24/2013 Goiter, unspecified 12/11/2010 01/15/2012 Dizziness and giddiness 02/26/2010 12/12/19 11 Primary localized osteoarthrosis, lower leg 01/2112/11/2010 Anxiety state, unspecified 06/07/200512/11 Depressive disorder, not elsewhere classified 12/11/2010 Carpal tunnel syndrome 06/07/2005 1 Obesity, Class III, BMI 40-49.9 (morbid obesity) 06/07/2005 09/12/2021 documented as of this encounter (statuses as of 09/02/2022) [facility] History of Past illness Narrative* Problem Noted Date Resolved Date Hypokalemia 05/30/2021 05/31/2021 Hyponatremia 05/30/2021 05/31/2021 Delirium 05/28/2021 05/31/2021 Angioedema 05/19/2021 05/31/2021 Grayson angina 05/18/2021 05/19/2021 Acute respiratory failure with hypoxia 05/31/2021 Blepharitis of both eyes 12/27/2015 016 Meibomianitis 12/14/2015 01/03/2016 Meibomitis 09/06/2015 11/02/2015 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 05/13/2014 08/16/2015 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 05/13/2014 08/16/2015 Other and combined forms of senile cataract - Benito th Eyes 05/13/2014 08/16/2015 Tear film insufficiency, unspecified - Both Eyes 05/13/2014 01/03/2016 Candidiasis, intertrigo 06/08/2013 10/16/19 22 Cholelithiasis 06/17/2012 06/24/2013 Goiter, unspecified 12/11/2010 01/15/2012 Dizziness and giddiness 02/26/2010 12/12/19 11 Primary localized osteoarthrosis, lower leg 01/2112/11/2010 Anxiety state, unspecified 06/07/200512/11 Depressive disorder, not elsewhere classified 12/11/2010 Carpal tunnel syndrome 06/07/2005 1 Obesity, Class III, BMI 40-49.9 (morbid obesity) 06/07/2005 09/12/2021 documented as of this encounter (statuses as of 09/03/2022) [facility] History of Past illness Narrative* Problem Noted Date Resolved Date Hypokalemia 05/30/2021 05/31/2021 Hyponatremia 05/30/2021 05/31/2021 Delirium 05/28/2021 05/31/2021 Angioedema 05/19/2021 05/31/2021 Grayson angina 05/18/2021 05/19/2021 Acute respiratory failure with hypoxia 05/31/2021 Blepharitis of both eyes 12/27/2015 016 Meibomianitis 12/14/2015 01/03/2016 Meibomitis 09/06/2015 11/02/2015 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 05/13/2014 08/16/2015 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 05/13/2014 08/16/2015 Other and combined forms of senile cataract - Benito th Eyes 05/13/2014 08/16/2015 Tear film insufficiency, unspecified - Both Eyes 05/13/2014 01/03/2016 Candidiasis, intertrigo 06/08/2013 10/16/19 Cholelithiasis 06/17/2012 06/24/2013 Goiter, unspecified 12/11/2010 01/15/2012 Dizziness and giddiness 02/26/2010 12/12/19 11 Primary localized osteoarthrosis, lower leg 01/2112/11/2010 Anxiety state, unspecified 06/07/200512/11 Depressive disorder, not elsewhere classified 12/11/2010 Carpal tunnel syndrome 06/07/2005 1 Obesity, Class III, BMI 40-49.9 (morbid obesity) 06/07/2005 09/12/2021 documented as of this encounter (statuses as of 09/26/2022) [facility] History of Past illness Narrative* Problem Noted Date Resolved Date Hypokalemia 05/30/2021 05/31/2021 Hyponatremia 05/30/2021 05/31/2021 Delirium 05/28/2021 05/31/2021 Angioedema 05/19/2021 05/31/2021 Grayson angina 05/18/2021 05/19/2021 Acute respiratory failure with hypoxia 05/31/2021 Blepharitis of both eyes 12/27/2015 016 Meibomianitis 12/14/2015 01/03/2016 Meibomitis 09/06/2015 11/02/2015 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 05/13/2014 08/16/2015 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 05/13/2014 08/16/2015 Other and combined forms of senile cataract - Benito th Eyes 05/13/2014 08/16/2015 Tear film insufficiency, unspecified - Both Eyes 05/13/2014 01/03/2016 Candidiasis, intertrigo 06/08/2013 10/16/19 22 Cholelithiasis 06/17/2012 06/24/2013 Goiter, unspecified 12/11/2010 01/15/2012 Dizziness and giddiness 02/26/2010 12/12/19 11 Primary localized osteoarthrosis, lower leg 01/2112/11/2010 Anxiety state, unspecified 06/07/200512/11 Depressive disorder, not elsewhere classified 12/11/2010 Carpal tunnel syndrome 06/07/2005 1 Obesity, Class III, BMI 40-49.9 (morbid obesity) 06/07/2005 09/12/2021 documented as of this encounter (statuses as of 09/26/2022) [facility] History of Past illness Narrative* Problem Noted Date Resolved Date Hypokalemia 05/30/2021 05/31/2021 Hyponatremia 05/30/2021 05/31/2021 Delirium 05/28/2021 05/31/2021 Angioedema 05/19/2021 05/31/2021 Grayson angina 05/18/2021 05/19/2021 Acute respiratory failure with hypoxia 05/31/2021 Blepharitis of both eyes 12/27/2015 016 Meibomianitis 12/14/2015 01/03/2016 Meibomitis 09/06/2015 11/02/2015 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 05/13/2014 08/16/2015 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 05/13/2014 08/16/2015 Other and combined forms of senile cataract - Benito th Eyes 05/13/2014 08/16/2015 Tear film insufficiency, unspecified - Both Eyes 05/13/2014 01/03/2016 Candidiasis, intertrigo 06/08/2013 10/16/19 22 Cholelithiasis 06/17/2012 06/24/2013 Goiter, unspecified 12/11/2010 01/15/2012 Dizziness and giddiness 02/26/2010 12/12/19 11 Primary localized osteoarthrosis, lower leg 01/2112/11/2010 Anxiety state, unspecified 06/07/200512/11 Depressive disorder, not elsewhere classified 12/11/2010 Carpal tunnel syndrome 06/07/2005 1 Obesity, Class III, BMI 40-49.9 (morbid obesity) 06/07/2005 09/12/2021 documented as of this encounter (statuses as of 10/01/2022) [facility] History of Past illness Narrative* Problem Noted Date Resolved Date Hypokalemia 05/30/2021 05/31/2021 Hyponatremia 05/30/2021 05/31/2021 Delirium 05/28/2021 05/31/2021 Angioedema 05/19/2021 05/31/2021 Grayson angina 05/18/2021 05/19/2021 Acute respiratory failure with hypoxia 05/31/2021 Blepharitis of both eyes 12/27/2015 016 Meibomianitis 12/14/2015 01/03/2016 Meibomitis 09/06/2015 11/02/2015 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 05/13/2014 08/16/2015 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 05/13/2014 08/16/2015 Other and combined forms of senile cataract - Benito Eyes 05/13/2014 08/16/2015 Tear film insufficiency, unspecified - Both Eyes 05/13/2014 01/03/2016 Candidiasis, intertrigo 06/08/2013 10/16/19 22 Cholelithiasis 06/17/2012 06/24/2013 Goiter, unspecified 12/11/2010 01/15/2012 Dizziness and giddiness 02/26/2010 12/12/19 11 Primary localized osteoarthrosis, lower leg 01/2112/11/2010 Anxiety state, unspecified 06/07/200512/11 Depressive disorder, not elsewhere classified 12/11/2010 Carpal tunnel syndrome 06/07/2005 1 Obesity, Class III, BMI 40-49.9 (morbid obesity) 06/07/2005 09/12/2021 documented as of this encounter (statuses as of 10/01/2022) [facility] History of Past illness Narrative* Problem Noted Date Resolved Date Hypokalemia 05/30/2021 05/31/2021 Hyponatremia 05/30/2021 05/31/2021 Delirium 05/28/2021 05/31/2021 Angioedema 05/19/2021 05/31/2021 Grayson angina 05/18/2021 05/19/2021 Acute respiratory failure with hypoxia 05/31/2021 Blepharitis of both eyes 12/27/2015 016 Meibomianitis 12/14/2015 01/03/2016 Meibomitis 09/06/2015 11/02/2015 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 05/13/2014 08/16/2015 Glaucomatous atrophy (cupping) of optic disc - B [facility] Eyes 05/13/2014 08/16/2015 Other and combined forms of senile cataract - Benito th Eyes 05/13/2014 08/16/2015 Tear film insufficiency, unspecified - Both Eyes 05/13/2014 01/03/2016 Candidiasis, intertrigo 06/08/2013 10/16/19 22 Cholelithiasis 06/17/2012 06/24/2013 Goiter, unspecified 12/11/2010 01/15/2012 Dizziness and giddiness 02/26/2010 12/12/19 11 Primary localized osteoarthrosis, lower leg 01/2112/11/2010 Anxiety state, unspecified 06/07/200512/11 Depressive disorder, not elsewhere classified 12/11/2010 Carpal tunnel syndrome 06/07/2005 1 Obesity, Class III, BMI 40-49.9 (morbid obesity) 06/07/2005 09/12/2021 documented as of this encounter (statuses as of 10/02/2022) [facility] History of Past illness Narrative* Problem Noted Date Resolved Date Hypokalemia 05/30/2021 05/31/2021 Hyponatremia 05/30/2021 05/31/2021 Delirium 05/28/2021 05/31/2021 Angioedema 05/19/2021 05/31/2021 Grayson angina 05/18/2021 05/19/2021 Acute respiratory failure with hypoxia 05/31/2021 Blepharitis of both eyes 12/27/2015 016 Meibomianitis 12/14/2015 01/03/2016 Meibomitis 09/06/2015 11/02/2015 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 05/13/2014 08/16/2015 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 05/13/2014 08/16/2015 Other and combined forms of senile cataract - [place]ito th Eyes 05/13/2014 08/16/2015 Tear film insufficiency, unspecified - Both Eyes 05/13/2014 01/03/2016 Candidiasis, intertrigo 06/08/2013 10/16/19 22 Cholelithiasis 06/17/2012 06/24/2013 Goiter, unspecified 12/11/2010 01/15/2012 Dizziness and giddiness 02/26/2010 12/12/19 11 Primary localized osteoarthrosis, lower leg 01/2112/11/2010 Anxiety state, unspecified 06/07/200512/11 Depressive disorder, not elsewhere classified 12/11/2010 Carpal tunnel syndrome 06/07/2005 1 Obesity, Class III, BMI 40-49.9 (morbid obesity) 06/07/2005 09/12/2021 documented as of this encounter (statuses as of 10/03/2022) [facility] History of Past illness Narrative* Problem Noted Date Resolved Date Hypokalemia 05/30/2021 05/31/2021 Hyponatremia 05/30/2021 05/31/2021 Delirium 05/28/2021 05/31/2021 Angioedema 05/19/2021 05/31/2021 Grayson angina 05/18/2021 05/19/2021 Acute respiratory failure with hypoxia 05/31/2021 Blepharitis of both eyes 12/27/2015 016 Meibomianitis 12/14/2015 01/03/2016 Meibomitis 09/06/2015 11/02/2015 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 05/13/2014 08/16/2015 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 05/13/2014 08/16/2015 Other and combined forms of senile cataract - [place]ito th Eyes 05/13/2014 08/16/2015 Tear film insufficiency, unspecified - Both Eyes 05/13/2014 01/03/2016 Candidiasis, intertrigo 06/08/2013 10/16/19 22 Cholelithiasis 06/17/2012 06/24/2013 Goiter, unspecified 12/11/2010 01/15/2012 Dizziness and giddiness 02/26/2010 12/12/19 11 Primary localized osteoarthrosis, lower leg 01/2112/11/2010 Anxiety state, unspecified 06/07/200512/11 Depressive disorder, not elsewhere classified 12/11/2010 Carpal tunnel syndrome 06/07/2005 1 Obesity, Class III, BMI 40-49.9 (morbid obesity) 06/07/2005 09/12/2021 documented as of this encounter (statuses as of 10/03/2022) [facility] History of Past illness Narrative* Problem Noted Date Resolved Date Hypokalemia 05/30/2021 05/31/2021 Hyponatremia 05/30/2021 05/31/2021 Delirium 05/28/2021 05/31/2021 Angioedema 05/19/2021 05/31/2021 Grayson angina 05/18/2021 05/19/2021 Acute respiratory failure with hypoxia 05/31/2021 Blepharitis of both eyes 12/27/2015 016 Meibomianitis 12/14/2015 01/03/2016 Meibomitis 09/06/2015 11/02/2015 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 05/13/2014 08/16/2015 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 05/13/2014 08/16/2015 Other and combined forms of senile cataract - [place]ito th Eyes 05/13/2014 08/16/2015 Tear film insufficiency, unspecified - Both Eyes 05/13/2014 01/03/2016 Candidiasis, intertrigo 06/08/2013 10/16/19 22 Cholelithiasis 06/17/2012 06/24/2013 Goiter, unspecified 12/11/2010 01/15/2012 Dizziness and giddiness 02/26/2010 12/12/19 11 Primary localized osteoarthrosis, lower leg 01/2112/11/2010 Anxiety state, unspecified 06/07/200512/11 Depressive disorder, not elsewhere classified 12/11/2010 Carpal tunnel syndrome 06/07/2005 1 Obesity, Class III, BMI 40-49.9 (morbid obesity) 06/07/2005 09/12/2021 documented as of this encounter (statuses as of 10/04/2022) [facility] History of Past illness Narrative* Problem Noted Date Resolved Date Hypokalemia 05/30/2021 05/31/2021 Hyponatremia 05/30/2021 05/31/2021 Delirium 05/28/2021 05/31/2021 Angioedema 05/19/2021 05/31/2021 Grayson angina 05/18/2021 05/19/2021 Acute respiratory failure with hypoxia 05/31/2021 Blepharitis of both eyes 12/27/2015 016 Meibomianitis 12/14/2015 01/03/2016 Meibomitis 09/06/2015 11/02/2015 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 05/13/2014 08/16/2015 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 05/13/2014 08/16/2015 Other and combined forms of senile cataract - [place] th Eyes 05/13/2014 08/16/2015 Tear film insufficiency, unspecified - Both Eyes 05/13/2014 01/03/2016 Candidiasis, intertrigo 06/08/2013 10/16/19 22 Cholelithiasis 06/17/2012 06/24/2013 Goiter, unspecified 12/11/2010 01/15/2012 Dizziness and giddiness 02/26/2010 12/12/19 11 Primary localized osteoarthrosis, lower leg 01/2112/11/2010 Anxiety state, unspecified 06/07/200512/11 Depressive disorder, not elsewhere classified 12/11/2010 Carpal tunnel syndrome 06/07/2005 1 Obesity, Class III, BMI 40-49.9 (morbid obesity) 06/07/2005 09/12/2021 documented as of this encounter (statuses as of 10/15/2022) [facility] History of Past illness Narrative* Problem Noted Date Resolved Date Hypokalemia 05/30/2021 05/31/2021 Hyponatremia 05/30/2021 05/31/2021 Delirium 05/28/2021 05/31/2021 Angioedema 05/19/2021 05/31/2021 Grayson angina 05/18/2021 05/19/2021 Acute respiratory failure with hypoxia 05/31/2021 Blepharitis of both eyes 12/27/2015 016 Meibomianitis 12/14/2015 01/03/2016 Meibomitis 09/06/2015 11/02/2015 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 05/13/2014 08/16/2015 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 05/13/2014 08/16/2015 Other and combined forms of senile cataract - [place] th Eyes 05/13/2014 08/16/2015 Tear film insufficiency, unspecified - Both Eyes 05/13/2014 01/03/2016 Candidiasis, intertrigo 06/08/2013 10/16/19 22 Cholelithiasis 06/17/2012 06/24/2013 Goiter, unspecified 12/11/2010 01/15/2012 Dizziness and giddiness 02/26/2010 12/12/19 11 Primary localized osteoarthrosis, lower leg 01/2112/11/2010 Anxiety state, unspecified 06/07/200512/11 Depressive disorder, not elsewhere classified 12/11/2010 Carpal tunnel syndrome 06/07/2005 1 Obesity, Class III, BMI 40-49.9 (morbid obesity) 06/07/2005 09/12/2021 documented as of this encounter (statuses as of 10/28/2022) [facility] History of Past illness Narrative* Problem Noted Date Resolved Date Hypokalemia 05/30/2021 05/31/2021 Hyponatremia 05/30/2021 05/31/2021 Delirium 05/28/2021 05/31/2021 Angioedema 05/19/2021 05/31/2021 Grayson angina 05/18/2021 05/19/2021 Acute respiratory failure with hypoxia 05/31/2021 Blepharitis of both eyes 12/27/2015 016 Meibomianitis 12/14/2015 01/03/2016 Meibomitis 09/06/2015 11/02/2015 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 05/13/2014 08/16/2015 Glaucomatous atrophy (cupping) of optic disc - B ot Eyes 05/13/2014 08/16/2015 Other and combined forms of senile cataract - [place]ito th Eyes 05/13/2014 08/16/2015 Tear film insufficiency, unspecified - Both Eyes 05/13/2014 01/03/2016 Candidiasis, intertrigo 06/08/2013 10/16/19 22 Cholelithiasis 06/17/2012 06/24/2013 Goiter, unspecified 12/11/2010 01/15/2012 Dizziness and giddiness 02/26/2010 12/12/19 11 Primary localized osteoarthrosis, lower leg 01/2112/11/2010 Anxiety state, unspecified 06/07/200512/11 Depressive disorder, not elsewhere classified 12/11/2010 Carpal tunnel syndrome 06/07/2005 1 Obesity, Class III, BMI 40-49.9 (morbid obesity) 06/07/2005 09/12/2021 documented as of this encounter (statuses as of 10/30/2022) [facility] History of Past illness Narrative* Problem Noted Date Resolved Date Hypokalemia 05/30/2021 05/31/2021 Hyponatremia 05/30/2021 05/31/2021 Delirium 05/28/2021 05/31/2021 Angioedema 05/19/2021 05/31/2021 Grayson angina 05/18/2021 05/19/2021 Acute respiratory failure with hypoxia 05/31/2021 Blepharitis of both eyes 12/27/2015 016 Meibomianitis 12/14/2015 01/03/2016 Meibomitis 09/06/2015 11/02/2015 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 05/13/2014 08/16/2015 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 05/13/2014 08/16/2015 Other and combined forms of senile cataract - [place]ito th Eyes 05/13/2014 08/16/2015 Tear film insufficiency, unspecified - Both Eyes 05/13/2014 01/03/2016 Candidiasis, intertrigo 06/08/2013 10/16/19 22 Cholelithiasis 06/17/2012 06/24/2013 Goiter, unspecified 12/11/2010 01/15/2012 Dizziness and giddiness 02/26/2010 12/12/19 11 Primary localized osteoarthrosis, lower leg 01/2112/11/2010 Anxiety state, unspecified 06/07/200512/11 Depressive disorder, not elsewhere classified 12/11/2010 Carpal tunnel syndrome 06/07/2005 1 Obesity, Class III, BMI 40-49.9 (morbid obesity) 06/07/2005 09/12/2021 documented as of this encounter (statuses as of 11/04/2022) [facility] History of Past illness Narrative* Problem Noted Date Resolved Date Hypokalemia 05/30/2021 05/31/2021 Hyponatremia 05/30/2021 05/31/2021 Delirium 05/28/2021 05/31/2021 Angioedema 05/19/2021 05/31/2021 Grayson angina 05/18/2021 05/19/2021 Acute respiratory failure with hypoxia 05/31/2021 Blepharitis of both eyes 12/27/2015 016 Meibomianitis 12/14/2015 01/03/2016 Meibomitis 09/06/2015 11/02/2015 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 05/13/2014 08/16/2015 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 05/13/2014 08/16/2015 Other and combined forms of senile cataract - [place]ito th Eyes 05/13/2014 08/16/2015 Tear film insufficiency, unspecified - Both Eyes 05/13/2014 01/03/2016 Candidiasis, intertrigo 06/08/2013 10/16/19 22 Cholelithiasis 06/17/2012 06/24/2013 Goiter, unspecified 12/11/2010 01/15/2012 Dizziness and giddiness 02/26/2010 12/12/19 11 Primary localized osteoarthrosis, lower leg 01/2112/11/2010 Anxiety state, unspecified 06/07/200512/11 Depressive disorder, not elsewhere classified 12/11/2010 Carpal tunnel syndrome 06/07/2005 1 Obesity, Class III, BMI 40-49.9 (morbid obesity) 06/07/2005 09/12/2021 documented as of this encounter (statuses as of 11/08/2022) [facility] History of Past illness Narrative* Problem Noted Date Resolved Date Hypokalemia 05/30/2021 05/31/2021 Hyponatremia 05/30/2021 05/31/2021 Delirium 05/28/2021 05/31/2021 Angioedema 05/19/2021 05/31/2021 Grayson angina 05/18/2021 05/19/2021 Acute respiratory failure with hypoxia 05/31/2021 Blepharitis of both eyes 12/27/2015 016 Meibomianitis 12/14/2015 01/03/2016 Meibomitis 09/06/2015 11/02/2015 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 05/13/2014 08/16/2015 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 05/13/2014 08/16/2015 Other and combined forms of senile cataract - [place]ito th Eyes 05/13/2014 08/16/2015 Tear film insufficiency, unspecified - Both Eyes 05/13/2014 01/03/2016 Candidiasis, intertrigo 06/08/2013 10/16/19 22 Cholelithiasis 06/17/2012 06/24/2013 Goiter, unspecified 12/11/2010 01/15/2012 Dizziness and giddiness 02/26/2010 12/12/19 11 Primary localized osteoarthrosis, lower leg 01/2112/11/2010 Anxiety state, unspecified 06/07/200512/11 Depressive disorder, not elsewhere classified 12/11/2010 Carpal tunnel syndrome 06/07/2005 1 Obesity, Class III, BMI 40-49.9 (morbid obesity) 06/07/2005 09/12/2021 documented as of this encounter (statuses as of 11/13/2022) [facility] History of Past illness Narrative* Problem Noted Date Resolved Date Hypokalemia 05/30/2021 05/31/2021 Hyponatremia 05/30/2021 05/31/2021 Delirium 05/28/2021 05/31/2021 Angioedema 05/19/2021 05/31/2021 Grayson angina 05/18/2021 05/19/2021 Acute respiratory failure with hypoxia 05/31/2021 Blepharitis of both eyes 12/27/2015 016 Meibomianitis 12/14/2015 01/03/2016 Meibomitis 09/06/2015 11/02/2015 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 05/13/2014 08/16/2015 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 05/13/2014 08/16/2015 Other and combined forms of senile cataract - [place]ito th Eyes 05/13/2014 08/16/2015 Tear film insufficiency, unspecified - Both Eyes 05/13/2014 01/03/2016 Candidiasis, intertrigo 06/08/2013 10/16/19 22 Cholelithiasis 06/17/2012 06/24/2013 Goiter, unspecified 12/11/2010 01/15/2012 Dizziness and giddiness 02/26/2010 12/12/19 11 Primary localized osteoarthrosis, lower leg 01/2112/11/2010 Anxiety state, unspecified 06/07/200512/11 Depressive disorder, not elsewhere classified 12/11/2010 Carpal tunnel syndrome 06/07/2005 1 Obesity, Class III, BMI 40-49.9 (morbid obesity) 06/07/2005 09/12/2021 documented as of this encounter (statuses as of 11/18/2022) [facility] History of Past illness Narrative* Problem Noted Date Resolved Date Hypokalemia 05/30/2021 05/31/2021 Hyponatremia 05/30/2021 05/31/2021 Delirium 05/28/2021 05/31/2021 Angioedema 05/19/2021 05/31/2021 Grayson angina 05/18/2021 05/19/2021 Acute respiratory failure with hypoxia 05/31/2021 Blepharitis of both eyes 12/27/2015 016 Meibomianitis 12/14/2015 01/03/2016 Meibomitis 09/06/2015 11/02/2015 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 05/13/2014 08/16/2015 Glaucomatous atrophy (cupping) of optic disc - B ot Eyes 05/13/2014 08/16/2015 Other and combined forms of senile cataract - [place]ito th Eyes 05/13/2014 08/16/2015 Tear film insufficiency, unspecified - Both Eyes 05/13/2014 01/03/2016 Candidiasis, intertrigo 06/08/2013 10/16/19 22 Cholelithiasis 06/17/2012 06/24/2013 Goiter, unspecified 12/11/2010 01/15/2012 Dizziness and giddiness 02/26/2010 12/12/19 11 Primary localized osteoarthrosis, lower leg 01/2112/11/2010 Anxiety state, unspecified 06/07/200512/11 Depressive disorder, not elsewhere classified 12/11/2010 Carpal tunnel syndrome 06/07/2005 1 Obesity, Class III, BMI 40-49.9 (morbid obesity) 06/07/2005 09/12/2021 documented as of this encounter (statuses as of 11/18/2022) [facility] History of Past illness Narrative* Problem Noted Date Resolved Date Hypokalemia 05/30/2021 05/31/2021 Hyponatremia 05/30/2021 05/31/2021 Delirium 05/28/2021 05/31/2021 Angioedema 05/19/2021 05/31/2021 Grayson angina 05/18/2021 05/19/2021 Acute respiratory failure with hypoxia 05/31/2021 Blepharitis of both eyes 12/27/2015 016 Meibomianitis 12/14/2015 01/03/2016 Meibomitis 09/06/2015 11/02/2015 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 05/13/2014 08/16/2015 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 05/13/2014 08/16/2015 Other and combined forms of senile cataract - [place]ito th Eyes 05/13/2014 08/16/2015 Tear film insufficiency, unspecified - Both Eyes 05/13/2014 01/03/2016 Candidiasis, intertrigo 06/08/2013 10/16/19 22 Cholelithiasis 06/17/2012 06/24/2013 Goiter, unspecified 12/11/2010 01/15/2012 Dizziness and giddiness 02/26/2010 12/12/19 11 Primary localized osteoarthrosis, lower leg 01/2112/11/2010 Anxiety state, unspecified 06/07/200512/11 Depressive disorder, not elsewhere classified 12/11/2010 Carpal tunnel syndrome 06/07/2005 1 Obesity, Class III, BMI 40-49.9 (morbid obesity) 06/07/2005 09/12/2021 documented as of this encounter (statuses as of 11/21/2022) [facility] History of Past illness Narrative* Problem Noted Date Resolved Date Hypokalemia 05/30/2021 05/31/2021 Hyponatremia 05/30/2021 05/31/2021 Delirium 05/28/2021 05/31/2021 Angioedema 05/19/2021 05/31/2021 Grayson angina 05/18/2021 05/19/2021 Acute respiratory failure with hypoxia 05/31/2021 Blepharitis of both eyes 12/27/2015 016 Meibomianitis 12/14/2015 01/03/2016 Meibomitis 09/06/2015 11/02/2015 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 05/13/2014 08/16/2015 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 05/13/2014 08/16/2015 Other and combined forms of senile cataract - [place]ito th Eyes 05/13/2014 08/16/2015 Tear film insufficiency, unspecified - Both Eyes 05/13/2014 01/03/2016 Candidiasis, intertrigo 06/08/2013 10/16/19 22 Cholelithiasis 06/17/2012 06/24/2013 Goiter, unspecified 12/11/2010 01/15/2012 Dizziness and giddiness 02/26/2010 12/12/19 11 Primary localized osteoarthrosis, lower leg 01/2112/11/2010 Anxiety state, unspecified 06/07/200512/11 Depressive disorder, not elsewhere classified 12/11/2010 Carpal tunnel syndrome 06/07/2005 1 Obesity, Class III, BMI 40-49.9 (morbid obesity) 06/07/2005 09/12/2021 documented as of this encounter (statuses as of 11/25/2022) [facility] History of Past illness Narrative* Problem Noted Date Resolved Date Hypokalemia 05/30/2021 05/31/2021 Hyponatremia 05/30/2021 05/31/2021 Delirium 05/28/2021 05/31/2021 Angioedema 05/19/2021 05/31/2021 Grayson angina 05/18/2021 05/19/2021 Acute respiratory failure with hypoxia 05/31/2021 Blepharitis of both eyes 12/27/2015 016 Meibomianitis 12/14/2015 01/03/2016 Meibomitis 09/06/2015 11/02/2015 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 05/13/2014 08/16/2015 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 05/13/2014 08/16/2015 Other and combined forms of senile cataract - [place]ito th Eyes 05/13/2014 08/16/2015 Tear film insufficiency, unspecified - Both Eyes 05/13/2014 01/03/2016 Candidiasis, intertrigo 06/08/2013 10/16/19 22 Cholelithiasis 06/17/2012 06/24/2013 Goiter, unspecified 12/11/2010 01/15/2012 Dizziness and giddiness 02/26/2010 12/12/19 11 Primary localized osteoarthrosis, lower leg 01/2112/11/2010 Anxiety state, unspecified 06/07/200512/11 Depressive disorder, not elsewhere classified 12/11/2010 Carpal tunnel syndrome 06/07/2005 1 Obesity, Class III, BMI 40-49.9 (morbid obesity) 06/07/2005 09/12/2021 documented as of this encounter (statuses as of 11/26/2022) [facility] History of Present illness Narrative* Suad Joe RT(R) - 03/21/2021 12:40 PM EDT Radiology Service Progress Note PATIENT NAME: Lisa Up DATE OF SERVICE: March 21, 2021 TIME: 12:56 PM PATIENT IDENTITY VERIFICATION COMPLETED USING TWO (2) IDENTIFIERS: Name and Date of confirmedby patient verbally. FALL SCREENING: Has the patient had 2 falls in the last year or 1 fall with injury or currently using an Ambulatory Assistive Device (Walker, Cane, Wheelchair, Crutches, etc.)? No PATIENT GENDER DATA: Female. status: : No status: NO. PATIENT RELEVANT IMPLANT DATA REVIEWED: Not Applicable RADIOLOGY DEPARTMENT: General X-ray: Exam(s) Completed: Chest X-Ray PERIPHERAL IV DATA: Not applicable SIGNED BY: RT Gi(R) March 21, 2021 12:56 PM documented in this encounterA[facility]21 Miscellaneous Notes* Telephone Encounter - Talia Silver LPN - 02/05/2021 12:57 PM EDT Dizziness is gone. Reports that BP with nurse was good. * Telephone Encounter - Sylvia Lizama MD - 02/01/2021 12:47 PM EDT Get up slowly and call if worsens at all. Needs seen if continues. * Telephone Encounter - Sylvia Lizama MD - 02/01/2021 12:46 PM EDT noted * Telephone Encounter - Mercy Mendez RN - 02/01/2021 11:38 AM EDT Patient felt dizzy after sitting at computer a long time, then stood up. Still a little lightheaded. Declined in office appt with pcp. Will check her computer to see if she can access a [employer] VV as she was not able to do it the last time she tried. Will increase fluid intake, and check BP and call back with update for pcp in 1-2 hours. Reports [facility] is coming to her house tomorrow, and will have them check her BP. Reason for Disposition Taking a medicine that could cause dizziness (e.g., blood pressure medications, diuretics) Answer Assessment - Initial Assessment Questions 1. DESCRIPTION: Was sitting at computer, when stood up, felt dizzy, sat for a few minutes, which did help some. Did get up and walk to bathroom with walker and did not completely resolve. 2. LIGHTHEADED: Lightheaded now. A little bit, not bad. Sitting and feels safe. 3. VERTIGO: No. Does have history of vertigo. 4. SEVERITY: Mild, able to walk with walker. Walks with walker due to hx of back surgery. 5. ONSET: Today after took metronidazole (bacteria in gut- she thinks). Started metronidazole yesterday. States she probably is not drinking enough fluids. Will increase fluid intake[facility] 6. AGGRAVATING FACTORS: Standing made it worse. 7. HEART RATE No unable, can't feel it- hands are numb due to previous back surgery. 8. CAUSE: Sitting at computer a long time. 9. RECURRENT SYMPTOM: Has hx of vertigo, but this is different. 10. OTHER SYMPTOMS No other symptoms. Last void 10 min ago. 11. No. Protocols used: DIZZINESS - [id number] documented in this encounterAcmc [facility]04-23-2021 History of Present illness Narrative* Minerva Call (Rt), Tech - 01/12/2021 2:50 PM EDT Radiology Service Progress Note PATIENT NAME: Lisa Up DATE OF SERVICE: January 12, 2021 TIME: 2:47 PM PATIENT IDENTITY VERIFICATION COMPLETED USING TWO (2) IDENTIFIERS: Name and Date of confirmedby patient verbally. FALL SCREENING: Has the patient had 2 falls in the last year or 1 fall with injury or currently using an Ambulatory Assistive Device (Walker, Cane, Wheelchair, Crutches, etc.)? No PATIENT GENDER DATA: Female. status: : No status: NO. PATIENT RELEVANT IMPLANT DATA REVIEWED: Yes RADIOLOGY DEPARTMENT: General X-ray: Exam(s) Completed: Chest X-Ray PERIPHERAL IV DATA: Not applicable SIGNED BY: RT Eddie January 12, 2021 2:47 PM documented in this encounterAcmc [facility] System03-17-2021 History of Present illness Narrative* Carlton Dejesus (Rt), Tech - 12/06/2020 2:40 PM EDT Radiology Service Progress Note PATIENT NAME: Lisa Up DATE OF SERVICE: December 06, 2020 TIME: 2:44 PM PATIENT IDENTITY VERIFICATION COMPLETED USING TWO (2) IDENTIFIERS: Name and Date of confirmedby patient verbally. FALL SCREENING: Has the patient had 2 falls in the last year or 1 fall with injury or currently using an Ambulatory Assistive Device (Walker, Cane, Wheelchair, Crutches, etc.)? No PATIENT GENDER DATA: Female. status: : No status: NO. PATIENT RELEVANT IMPLANT DATA REVIEWED: Not Applicable RADIOLOGY DEPARTMENT: General X-ray: Exam(s) Completed: Spine X-Ray(s): Thoracic and Lumbar AP / LAT / L5-S1 Ap and Lat only PERIPHERAL IV DATA: Not applicable SIGNED BY: RT Tessa December 06, 2020 2:44 PM documented in this encounterAcmc [facility] System12-09-2020 History of Present illness Narrative* Suad Joe (Rt), Eve - 08/30/2020 6:20 PM EST Radiology Service Progress Note PATIENT NAME: Lisa Up DATE OF SERVICE: August 30, 2020 TIME: 6:46 PM PATIENT IDENTITY VERIFICATION COMPLETED USING TWO (2) IDENTIFIERS: Name and Date of confirmedby patient verbally. FALL SCREENING: Has the patient had 2 falls in the last year or 1 fall with injury or currently using an Ambulatory Assistive Device (Walker, Cane, Wheelchair, Crutches, etc.)? No PATIENT GENDER DATA: Female. status: : No status: NO. 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 Encounter for screening mammogram for malignant neoplasm of breast Other screening mammogram [facility] [place] [facility]* Diagnosis Hypopotassemia documented in this encounter [facility] note* Diagnosis Epigastric pain Abdominal pain, epigastric GERD without esophagitis Esophageal reflux [facility] Diagnosis Hypopotassemia Epigastric pain Abdominal pain, epigastric GERD without esophagitis Esophageal reflux [facility]* Diagnosis SOB (shortness of breath)- Primary Shortness of breath Fatigue, unspecified type Bronchitis Bronchitis, not specified as acute or chronic Edema, unspecified type Hypothyroidism, unspecified type B-cell lymphoma, unspecified B-cell lymphoma type, unspecified body region (HCC) DDD (degenerative disc disease), lumbar Degeneration of lumbar or lumbosacral intervertebral disc Essential hypertension Unspecified essential hypertension [facility] [place] [facility]* Diagnosis 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)- Primary Abnormal mammogram Abnormal mammogram, unspecified 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) Obesity, Class II, BMI 35-39.9 Obesity, unspecified Mild protein-calorie malnutrition (HCC) Malnutrition of mild degree Lymphadenopathy, generalized Enlargement of lymph nodes Chronic daily headache Headache Chronic migraine without aura, with intractable migraine, so stated, with status migrainosus Cervicalgia Intractable chronic migraine without aura and without status migrainosus Chronic migraine without aura, with intractable migraine, so stated, without mention of status migrainosus Chronic tension-type headache, intractable Chronic tension type headache Bilateral carotid artery stenosis Occlusion and stenosis of carotid artery without mention of cerebral infarction Non-rheumatic tricuspid valve insufficiency Tricuspid valve disorders, specified as nonrheumatic Poor posture Abnormal posture Lumbosacral stenosis Spinal stenosis, lumbar region, without neurogenic claudication Acquired spondylolisthesis of lumbosacral region Acquired spondylolisthesis History of lumbar fusion History of DVT (deep vein thrombosis) Personal history of venous thrombosis and embolism Wound infection after surgery Other postoperative infection Lumbar spondylosis Lumbosacral spondylosis without myelopathy Spinal stenosis, lumbar region with neurogenic claudication Spondylosis of lumbar region without myelopathy or radiculopathy Lumbosacral spondylosis without myelopathy Chronic bilateral low back pain with bilateral sciatica [place] on CPAP Obstructive sleep apnea (adult) (pediatric) Essential tremor Essential and other specified forms of tremor Spinal stenosis, lumbar region, with neurogenic claudication Chronic left-sided thoracic back pain Meibomian gland dysfunction (MGD) of upper and lower lids of both eyes Vitreous floaters of both eyes Combined forms of age-related cataract of both eyes Other and combined forms of senile cataract Ocular hypertension, bilateral Borderline glaucoma with ocular hypertension Tinnitus of both ears Unspecified tinnitus 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 (male)(female) Nontoxic multinodular goiter Essential hypertension Unspecified essential hypertension Enlarged lymph nodes- Primary Enlargement of lymph nodes 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) B-cell lymphoma, unspecified B-cell lymphoma type, unspecified body region (HCC) 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) [facility] Diagnosis 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)- Primary Abnormal mammogram Abnormal mammogram, unspecified 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) Obesity, Class II, BMI 35-39.9 Obesity, unspecified Mild protein-calorie malnutrition (HCC) Malnutrition of mild degree Lymphadenopathy, generalized Enlargement of lymph nodes Chronic daily headache Headache Chronic migraine without aura, with intractable migraine, so stated, with status migrainosus Cervicalgia Intractable chronic migraine without aura and without status migrainosus Chronic migraine without aura, with intractable migraine, so stated, without mention of status migrainosus Chronic tension-type headache, intractable Chronic tension type headache Bilateral carotid artery stenosis Occlusion and stenosis of carotid artery without mention of cerebral infarction Non-rheumatic tricuspid valve insufficiency Tricuspid valve disorders, specified as nonrheumatic Poor posture Abnormal posture Lumbosacral stenosis Spinal stenosis, lumbar region, without neurogenic claudication Acquired spondylolisthesis of lumbosacral region Acquired spondylolisthesis History of lumbar fusion History of DVT (deep vein thrombosis) Personal history of venous thrombosis and embolism Wound infection after surgery Other postoperative infection Lumbar spondylosis Lumbosacral spondylosis without myelopathy Spinal stenosis, lumbar region with neurogenic claudication Spondylosis of lumbar region without myelopathy or radiculopathy Lumbosacral spondylosis without myelopathy Chronic bilateral low back pain with bilateral sciatica [place] on CPAP Obstructive sleep apnea (adult) (pediatric) Essential tremor Essential and other specified forms of tremor Spinal stenosis, lumbar region, with neurogenic claudication Chronic left-sided thoracic back pain Meibomian gland dysfunction (MGD) of upper and lower lids of both eyes Vitreous floaters of both eyes Combined forms of age-related cataract of both eyes Other and combined forms of senile cataract Ocular hypertension, bilateral Borderline glaucoma with ocular hypertension Tinnitus of both ears Unspecified tinnitus 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 (male)(female) Nontoxic multinodular goiter Essential hypertension Unspecified essential hypertension Urinary frequency- Primary Feared condition not demonstrated Person with feared complaint in whom no diagnosis was made B-cell lymphoma, unspecified B-cell lymphoma type, unspecified body region (HCC) 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) [facility] Enlarged lymph nodes- Primary Enlargement of lymph nodes 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) 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) [facility]* Diagnosis Encounter for education- Primary Counseling NOS 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) [facility]* Diagnosis Hypopotassemia Essential hypertension Unspecified essential hypertension DDD (degenerative disc disease), lumbar Degeneration of lumbar or lumbosacral intervertebral disc [facility]* Diagnosis 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 [facility] Diagnosis 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) [facility]* Diagnosis Pre-operative examination- Primary Preoperative examination, unspecified 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) Bilateral carotid artery stenosis Occlusion and stenosis of carotid artery without mention of cerebral infarction Essential hypertension Unspecified essential hypertension History of DVT (deep vein thrombosis) Personal history of venous thrombosis and embolism History of lumbar fusion Mixed hyperlipidemia Hypothyroidism, unspecified type Intractable chronic migraine without aura and without status migrainosus Chronic migraine without aura, with intractable migraine, so stated, without mention of status migrainosus Non-rheumatic tricuspid valve insufficiency Tricuspid valve disorders, specified as nonrheumatic Class 3 severe obesity due to excess calories with body mass index (BMI) of 40.0 to 44.9 in adult, unspecified whether serious comorbidity present (HCC) [place] on CPAP Obstructive sleep apnea (adult) (pediatric) Gastroesophageal reflux disease, unspecified whether esophagitis present Chronic kidney disease, unspecified CKD stage Difficult airway for intubation, initial encounter 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) [facility]* Diagnosis Allergic contact dermatitis due to adhesives- Primary Contact dermatitis and other eczema due to other chemical products Port-A-Cath in place Other postprocedural status [facility]* Diagnosis Need for influenza vaccination- Primary Need for prophylactic vaccination and inoculation against influenza Need for vaccination Need for prophylactic vaccination and inoculation against unspecified single disease [facility] [place] [facility]* Diagnosis 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 [facility] [place] [facility]* Diagnosis 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 [facility]* Diagnosis 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) [facility] [place] [facility]* Diagnosis 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, secondary Other secondary thrombocytopenia documented [facility] [place] [facility]* Diagnosis B-cell lymphoma, unspecified B-cell lymphoma type, unspecified body region (HCC)- Primary 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) documented [facility] [place] [facility]* Diagnosis Onset Date Resolution Status Abdominal pain acute MARY (acute kidney injury) ac robyn Anticoagulant long-term use acute Non Hodgkin's lymphoma acute S/P laparoscopic cholecystectomy acute Acute cholecystitis resolved [facility] Work Phone: Evaluation note* Diagnosis Encounter for prophylactic measures, unspecified- Primary documented [facility] [place] [facility]* Diagnosis 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) documented [facility] [place] [facility]* Diagnosis 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 [facility] [place] [facility]* Diagnosis 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 [facility]* Diagnosis 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 [facility] [place] [facility]* Diagnosis 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) documented [facility] [place] [facility]* Diagnosis 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 [facility]* Diagnosis Chronic kidney disease, unspecified CKD stage- Primary [facility]* Diagnosis 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, secondary Other secondary thrombocytopenia [facility] Diagnosis 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, secondary Other secondary thrombocytopenia [facility]* Diagnosis Essential hypertension- Primary Unspecified essential hypertension SOB (shortness of breath) Shortness of breath B-cell lymphoma, unspecified B-cell lymphoma type, unspecified body region (HCC) Chronic respiratory failure with hypoxia (HCC) Chronic respiratory failure Intermittent lightheadedness Dizziness and giddiness [facility]* Diagnosis Hypopotassemia DDD (degenerative disc disease), lumbar Degeneration of lumbar or lumbosacral intervertebral disc [facility]* Diagnosis 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, secondary Other secondary thrombocytopenia [facility]* Diagnosis 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, secondary Other secondary thrombocytopenia Chronic kidney disease, unspecified CKD stage [facility]* Diagnosis Essential tremor- Primary Essential and other specified forms of tremor Chronic migraine without aura, with intractable migraine, so stated, with status migrainosus Intractable chronic migraine without aura and without status migrainosus Chronic migraine without aura, with intractable migraine, so stated, without mention of status migrainosus Essential hypertension Unspecified essential hypertension Mixed hyperlipidemia Gastroesophageal reflux disease, unspecified whether esophagitis present Chronic kidney disease, unspecified CKD stage Hypothyroidism, unspecified type B-cell lymphoma, unspecified B-cell lymphoma type, 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) Lymphadenopathy, generalized Enlargement of lymph nodes [place]ST[place] (obstructive sleep apnea) Obstructive sleep apnea (adult) (pediatric) Abnormal urine odor Other nonspecific finding on examination of urine [facility]* Diagnosis Essential hypertension Unspecified essential hypertension [facility]* Diagnosis 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) [facility] Diagnosis Acute generalized exanthematous pustulosis due to drug- Primary Dermatitis due to drugs and medicines taken internally [facility]* Diagnosis 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 [facility]* Diagnosis Combined forms of age-related cataract of right eye- Primary Other and combined forms of senile cataract Combined forms of age-related cataract of left eye Other and combined forms of senile cataract Ocular hypertension, bilateral Borderline glaucoma with ocular hypertension Essential hypertension Unspecified essential hypertension [facility]* Diagnosis 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 [facility]* Diagnosis Acute pain of left shoulder- Primary Muscle tension pain [facility]* Diagnosis Mixed hyperlipidemia- Primary Essential hypertension Unspecified essential hypertension Body mass index (BMI) 40.0-44.9, adult (HCC) Non-rheumatic tricuspid valve insufficiency Tricuspid valve disorders, specified as nonrheumatic [place] on CPAP Obstructive sleep apnea (adult) (pediatric) B-cell lymphoma, unspecified B-cell lymphoma type, 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) Hypothyroidism, unspecified type Spinal stenosis, lumbar region, with neurogenic claudication History of DVT (deep vein thrombosis) Personal history of venous thrombosis and embolism Bilateral carotid artery stenosis Occlusion and stenosis of carotid artery without mention of cerebral infarction Left arm pain Pain in limb Neck pain Cervicalgia DDD (degenerative disc disease), lumbar Degeneration of lumbar or lumbosacral intervertebral disc [facility] Diagnosis Left arm pain- Primary Pain in limb [facility]* Diagnosis Left arm pain- Primary Pain in limb Neck pain Cervicalgia [facility]* Diagnosis Left arm pain- Primary Pain in limb Neck pain Cervicalgia [facility]* Diagnosis Left arm pain- Primary Pain in limb Neck pain Cervicalgia [facility] Diagnosis Left arm pain- Primary Pain in limb Neck pain Cervicalgia [facility]* Diagnosis 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) [facility] Diagnosis 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 [facility]* Diagnosis 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) 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) [facility]* Diagnosis Encounter for screening mammogram for malignant neoplasm of breast- Primary Other screening mammogram 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) [facility]* Diagnosis Essential hypertension- Primary Unspecified essential hypertension GERD without esophagitis Esophageal reflux Mixed hyperlipidemia Non-rheumatic tricuspid valve insufficiency Tricuspid valve disorders, specified as nonrheumatic Essential tremor Essential and other specified forms of tremor Other migraine without status migrainosus, not intractable [place] (obstructive sleep apnea) Obstructive sleep apnea (adult) (pediatric) Gastroesophageal reflux disease, unspecified whether esophagitis present B-cell lymphoma, unspecified B-cell lymphoma type, unspecified body region (HCC) Hypothyroidism, unspecified type halfway current use of anticoagulant therapy Long-term (current) use of anticoagulants Valvular heart disease Endocarditis, valve unspecified, unspecified cause [facility]* Diagnosis [place] (obstructive sleep apnea)- Primary Obstructive sleep apnea (adult) (pediatric) [facility]* Diagnosis Encounter for screening mammogram for malignant neoplasm of breast Other screening mammogram [facility] Diagnosis 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) [facility]* Diagnosis 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) [facility]* Diagnosis Primary open angle glaucoma (POAG) of both eyes, mild stage- Primary Optic cupping of both eyes Combined form of age-related cataract, both eyes Essential hypertension Unspecified essential hypertension [place] (obstructive sleep apnea) Obstructive sleep apnea (adult) (pediatric) [facility]* Diagnosis Ocular hypertension, bilateral- Primary Borderline glaucoma with ocular hypertension Optic cupping of both eyes Combined forms of age-related cataract of both eyes Other and combined forms of senile cataract Essential hypertension Unspecified essential hypertension [place] (obstructive sleep apnea) Obstructive sleep apnea (adult) (pediatric) [facility]* Diagnosis URI, acute- Primary Acute upper respiratory infections of unspecified site Choking episode Other symptoms involving head and neck Neck mass Swelling, mass, or lump in head and neck [facility]* Diagnosis Urinary frequency- Primary [facility]* Diagnosis Neck mass Swelling, mass, or lump in head and neck [facility]* Diagnosis 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) Encounter for screening mammogram for malignant neoplasm of breast Other screening mammogram [facility] Diagnosis 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 [facility] [place] [facility]* Diagnosis Essential hypertension- Primary Unspecified essential hypertension GERD without esophagitis Esophageal reflux Mixed hyperlipidemia Essential tremor Essential and other specified forms of tremor Hypothyroidism, unspecified type B-cell lymphoma, unspecified B-cell lymphoma type, unspecified body region (HCC) Thrombocytopenia, secondary Other secondary thrombocytopenia Anxiety with depression Bilateral carotid artery stenosis Occlusion and stenosis of carotid artery without mention of cerebral infarction History of DVT (deep vein thrombosis) Personal history of venous thrombosis and embolism [facility] [place] [facility]* Diagnosis Anxiety with depression [facility]* Diagnosis 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 Enlarged lymph nodes Enlargement of lymph nodes Abnormal CT of the abdomen Nonspecific (abnormal) findings on radiological and other examination of abdominal area, including retroperitoneum [facility]* Diagnosis Anxiety with depression- Primary Left arm pain Pain in limb Neck pain Cervicalgia DDD (degenerative disc disease), lumbar Degeneration of lumbar or lumbosacral intervertebral disc [facility] [place] [facility]* Diagnosis Urinary incontinence without sensory awareness- Primary Incontinence without sensory awareness [facility]* Diagnosis Diarrhea, unspecified type- Primary Anxiety with depression Chilling Chills (without fever) Chills Chills (without fever) [facility] Diagnosis Diarrhea, unspecified type- Primary Sinobronchitis Unspecified sinusitis (chronic) documented in this [facility] [place] [facility] Diagnosis Left arm pain Pain in limb Neck pain Cervicalgia DDD (degenerative disc disease), lumbar Degeneration of lumbar or lumbosacral intervertebral disc Diarrhea, unspecified type [facility] Diarrhea, unspecified type Essential hypertension Unspecified essential hypertension 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) Enlarged lymph nodes Enlargement of lymph nodes Abnormal CT of the abdomen Nonspecific (abnormal) findings on radiological and other examination of abdominal area, including retroperitoneum Hypertensive urgency Unspecified essential hypertension [facility] Diagnosis Diarrhea of infectious origin- Primary Diarrhea of presumed infectious origin Other primary thrombophilia (HCC) Body mass index (BMI) 40.0-44.9, adult (HCC) Essential hypertension Unspecified essential hypertension Hypertensive urgency Unspecified essential hypertension Chronic kidney disease, unspecified CKD stage Hypothyroidism, unspecified type 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) B-cell lymphoma, unspecified B-cell lymphoma type, unspecified body region (HCC) Soft tissue mass Disorders of soft tissue, unspecified [facility] Diagnosis Hypopotassemia [facility] Diagnosis BPPV (benign paroxysmal positional vertigo), unspecified laterality- Primary [facility] Diagnosis 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) Enlarged lymph nodes Enlargement of lymph nodes Abnormal CT of the abdomen Nonspecific (abnormal) findings on radiological and other examination of abdominal area, including retroperitoneum [facility] Diagnosis Soft tissue mass Disorders of soft tissue, unspecified [facility] Diagnosis 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 [facility] Diagnosis Encounter for screening for malignant neoplasm of colon- Primary Special screening for malignant neoplasms, colon Diarrhea, unspecified type [facility] Diagnosis Essential hypertension- Primary Unspecified essential hypertension GERD without esophagitis Esophageal reflux Diarrhea, unspecified type [facility] Diagnosis Pre-operative examination- Primary Preoperative examination, unspecified 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) Bilateral carotid artery stenosis Occlusion and stenosis of carotid artery without mention of cerebral infarction Essential hypertension Unspecified essential hypertension History of DVT (deep vein thrombosis) Personal history of venous thrombosis and embolism History of lumbar fusion Mixed hyperlipidemia Hypothyroidism, unspecified type Intractable chronic migraine without aura and without status migrainosus Chronic migraine without aura, with intractable migraine, so stated, without mention of status migrainosus Non-rheumatic tricuspid valve insufficiency Tricuspid valve disorders, specified as nonrheumatic Class 3 severe obesity due to excess calories with body mass index (BMI) of 40.0 to 44.9 in adult, unspecified whether serious comorbidity present (HCC) [place] on CPAP Obstructive sleep apnea (adult) (pediatric) Gastroesophageal reflux disease, unspecified whether esophagitis present Chronic kidney disease, unspecified CKD stage Difficult airway for intubation, initial encounter Urinary frequency- Primary [facility] [place] [facility]* Diagnosis Pre-operative examination- Primary Preoperative examination, unspecified 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) Bilateral carotid artery stenosis Occlusion and stenosis of carotid artery without mention of cerebral infarction Essential hypertension Unspecified essential hypertension History of DVT (deep vein thrombosis) Personal history of venous thrombosis and embolism History of lumbar fusion Mixed hyperlipidemia Hypothyroidism, unspecified type Intractable chronic migraine without aura and without status migrainosus Chronic migraine without aura, with intractable migraine, so stated, without mention of status migrainosus Non-rheumatic tricuspid valve insufficiency Tricuspid valve disorders, specified as nonrheumatic Class 3 severe obesity due to excess calories with body mass index (BMI) of 40.0 to 44.9 in adult, unspecified whether serious comorbidity present (HCC) [place] on CPAP Obstructive sleep apnea (adult) (pediatric) Gastroesophageal reflux disease, unspecified whether esophagitis present Chronic kidney disease, unspecified CKD stage Difficult airway for intubation, initial encounter Migraine without aura and without status migrainosus, not intractable- Primary Migraine without aura, without mention of intractable migraine without mention of status migrainosus Left arm pain Pain in limb Neck pain Cervicalgia DDD (degenerative disc disease), lumbar Degeneration of lumbar or lumbosacral intervertebral disc Essential hypertension Unspecified essential hypertension Pure hypercholesterolemia Orthostatic dizziness Dizziness Dizziness and giddiness [facility] Pre-operative examination- Primary Preoperative examination, unspecified 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) Bilateral carotid artery stenosis Occlusion and stenosis of carotid artery without mention of cerebral infarction Essential hypertension Unspecified essential hypertension History of DVT (deep vein thrombosis) Personal history of venous thrombosis and embolism History of lumbar fusion Mixed hyperlipidemia Hypothyroidism, unspecified type Intractable chronic migraine without aura and without status migrainosus Chronic migraine without aura, with intractable migraine, so stated, without mention of status migrainosus Non-rheumatic tricuspid valve insufficiency Tricuspid valve disorders, specified as nonrheumatic Class 3 severe obesity due to excess calories with body mass index (BMI) of 40.0 to 44.9 in adult, unspecified whether serious comorbidity present (HCC) [place] on CPAP Obstructive sleep apnea (adult) (pediatric) Gastroesophageal reflux disease, unspecified whether esophagitis present Chronic kidney disease, unspecified CKD stage Difficult airway for intubation, initial encounter Left arm pain Pain in limb Neck pain Cervicalgia documented [facility] this [facility] [place] [facility]* Diagnosis Pre-operative examination- Primary Preoperative examination, unspecified 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) Bilateral carotid artery stenosis Occlusion and stenosis of carotid artery without mention of cerebral infarction Essential hypertension Unspecified essential hypertension History of DVT (deep vein thrombosis) Personal history of venous thrombosis and embolism History of lumbar fusion Mixed hyperlipidemia Hypothyroidism, unspecified type Intractable chronic migraine without aura and without status migrainosus Chronic migraine without aura, with intractable migraine, so stated, without mention of status migrainosus Non-rheumatic tricuspid valve insufficiency Tricuspid valve disorders, specified as nonrheumatic Class 3 severe obesity due to excess calories with body mass index (BMI) of 40.0 to 44.9 in adult, unspecified whether serious comorbidity present (HCC) [place] on CPAP Obstructive sleep apnea (adult) (pediatric) Gastroesophageal reflux disease, unspecified whether esophagitis present Chronic kidney disease, unspecified CKD stage Difficult airway for intubation, initial encounter Acute pain of left shoulder [facility] this [facility] [place] [facility]* Diagnosis Pre-operative examination- Primary Preoperative examination, unspecified 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) Bilateral carotid artery stenosis Occlusion and stenosis of carotid artery without mention of cerebral infarction Essential hypertension Unspecified essential hypertension History of DVT (deep vein thrombosis) Personal history of venous thrombosis and embolism History of lumbar fusion Mixed hyperlipidemia Hypothyroidism, unspecified type Intractable chronic migraine without aura and without status migrainosus Chronic migraine without aura, with intractable migraine, so stated, without mention of status migrainosus Non-rheumatic tricuspid valve insufficiency Tricuspid valve disorders, specified as nonrheumatic Class 3 severe obesity due to excess calories with body mass index (BMI) of 40.0 to 44.9 in adult, unspecified whether serious comorbidity present (HCC) [place] on CPAP Obstructive sleep apnea (adult) (pediatric) Gastroesophageal reflux disease, unspecified whether esophagitis present Chronic kidney disease, unspecified CKD stage Difficult airway for intubation, initial encounter History of DVT (deep vein thrombosis)- Primary Personal history of venous thrombosis and embolism Essential hypertension Unspecified essential hypertension Migraine without aura and without status migrainosus, not intractable Migraine without aura, without mention of intractable migraine without mention of status migrainosus Hypothyroidism, unspecified type Urge incontinence Hair loss Alopecia, unspecified Angioedema, subsequent encounter Hypopotassemia [facility] Diagnosis SOB (shortness of breath) Shortness of breath Bronchitis Bronchitis, not specified as acute or chronic Pre-operative examination- Primary Preoperative examination, unspecified 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) Bilateral carotid artery stenosis Occlusion and stenosis of carotid artery without mention of cerebral infarction Essential hypertension Unspecified essential hypertension History of DVT (deep vein thrombosis) Personal history of venous thrombosis and embolism History of lumbar fusion Mixed hyperlipidemia Hypothyroidism, unspecified type Intractable chronic migraine without aura and without status migrainosus Chronic migraine without aura, with intractable migraine, so stated, without mention of status migrainosus Non-rheumatic tricuspid valve insufficiency Tricuspid valve disorders, specified as nonrheumatic Class 3 severe obesity due to excess calories with body mass index (BMI) of 40.0 to 44.9 in adult, unspecified whether serious comorbidity present (HCC) [place] on CPAP Obstructive sleep apnea (adult) (pediatric) Gastroesophageal reflux disease, unspecified whether esophagitis present Chronic kidney disease, unspecified CKD stage Difficult airway for intubation, initial encounter [facility] Diagnosis Upper back pain on left side- Primary Pain in thoracic spine [facility] Diagnosis Chest pain, unspecified type Pre-operative examination- Primary Preoperative examination, unspecified 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) Bilateral carotid artery stenosis Occlusion and stenosis of carotid artery without mention of cerebral infarction Essential hypertension Unspecified essential hypertension History of DVT (deep vein thrombosis) Personal history of venous thrombosis and embolism History of lumbar fusion Mixed hyperlipidemia Hypothyroidism, unspecified type Intractable chronic migraine without aura and without status migrainosus Chronic migraine without aura, with intractable migraine, so stated, without mention of status migrainosus Non-rheumatic tricuspid valve insufficiency Tricuspid valve disorders, specified as nonrheumatic Class 3 severe obesity due to excess calories with body mass index (BMI) of 40.0 to 44.9 in adult, unspecified whether serious comorbidity present (HCC) [place] on CPAP Obstructive sleep apnea (adult) (pediatric) Gastroesophageal reflux disease, unspecified whether esophagitis present Chronic kidney disease, unspecified CKD stage Difficult airway for intubation, initial encounter [facility] [place] [facility]* Diagnosis Chills Chills (without fever) Pre-operative examination- Primary Preoperative examination, unspecified 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) Bilateral carotid artery stenosis Occlusion and stenosis of carotid artery without mention of cerebral infarction Essential hypertension Unspecified essential hypertension History of DVT (deep vein thrombosis) Personal history of venous thrombosis and embolism History of lumbar fusion Mixed hyperlipidemia Hypothyroidism, unspecified type Intractable chronic migraine without aura and without status migrainosus Chronic migraine without aura, with intractable migraine, so stated, without mention of status migrainosus Non-rheumatic tricuspid valve insufficiency Tricuspid valve disorders, specified as nonrheumatic Class 3 severe obesity due to excess calories with body mass index (BMI) of 40.0 to 44.9 in adult, unspecified whether serious comorbidity present (HCC) [place] on CPAP Obstructive sleep apnea (adult) (pediatric) Gastroesophageal reflux disease, unspecified whether esophagitis present Chronic kidney disease, unspecified CKD stage Difficult airway for intubation, initial encounter documented [facility] this [facility] [place] [facility]* Diagnosis Infected sebaceous cyst of skin Sebaceous cyst Pre-operative examination- Primary Preoperative examination, unspecified 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) Bilateral carotid artery stenosis Occlusion and stenosis of carotid artery without mention of cerebral infarction Essential hypertension Unspecified essential hypertension History of DVT (deep vein thrombosis) Personal history of venous thrombosis and embolism History of lumbar fusion Mixed hyperlipidemia Hypothyroidism, unspecified type Intractable chronic migraine without aura and without status migrainosus Chronic migraine without aura, with intractable migraine, so stated, without mention of status migrainosus Non-rheumatic tricuspid valve insufficiency Tricuspid valve disorders, specified as nonrheumatic Class 3 severe obesity due to excess calories with body mass index (BMI) of 40.0 to 44.9 in adult, unspecified whether serious comorbidity present (HCC) [place] on CPAP Obstructive sleep apnea (adult) (pediatric) Gastroesophageal reflux disease, unspecified whether esophagitis present Chronic kidney disease, unspecified CKD stage Difficult airway for intubation, initial encounter documented [facility] this [facility] [place] [facility]* Diagnosis Encounter by telehealth for suspected COVID-19 Pre-operative examination- Primary Preoperative examination, unspecified 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) Bilateral carotid artery stenosis Occlusion and stenosis of carotid artery without mention of cerebral infarction Essential hypertension Unspecified essential hypertension History of DVT (deep vein thrombosis) Personal history of venous thrombosis and embolism History of lumbar fusion Mixed hyperlipidemia Hypothyroidism, unspecified type Intractable chronic migraine without aura and without status migrainosus Chronic migraine without aura, with intractable migraine, so stated, without mention of status migrainosus Non-rheumatic tricuspid valve insufficiency Tricuspid valve disorders, specified as nonrheumatic Class 3 severe obesity due to excess calories with body mass index (BMI) of 40.0 to 44.9 in adult, unspecified whether serious comorbidity present (HCC) [place] on CPAP Obstructive sleep apnea (adult) (pediatric) Gastroesophageal reflux disease, unspecified whether esophagitis present Chronic kidney disease, unspecified CKD stage Difficult airway for intubation, initial encounter documented [facility] this [facility] [place] [facility]* Diagnosis Pre-operative examination- Primary Preoperative examination, unspecified 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) Bilateral carotid artery stenosis Occlusion and stenosis of carotid artery without mention of cerebral infarction Essential hypertension Unspecified essential hypertension History of DVT (deep vein thrombosis) Personal history of venous thrombosis and embolism History of lumbar fusion Mixed hyperlipidemia Hypothyroidism, unspecified type Intractable chronic migraine without aura and without status migrainosus Chronic migraine without aura, with intractable migraine, so stated, without mention of status migrainosus Non-rheumatic tricuspid valve insufficiency Tricuspid valve disorders, specified as nonrheumatic Class 3 severe obesity due to excess calories with body mass index (BMI) of 40.0 to 44.9 in adult, unspecified whether serious comorbidity present (HCC) [place] on CPAP Obstructive sleep apnea (adult) (pediatric) Gastroesophageal reflux disease, unspecified whether esophagitis present Chronic kidney disease, unspecified CKD stage Difficult airway for intubation, initial encounter Essential hypertension Unspecified essential hypertension [facility] [place] [facility]* Diagnosis Pre-operative examination- Primary Preoperative examination, unspecified 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) Bilateral carotid artery stenosis Occlusion and stenosis of carotid artery without mention of cerebral infarction Essential hypertension Unspecified essential hypertension History of DVT (deep vein thrombosis) Personal history of venous thrombosis and embolism History of lumbar fusion Mixed hyperlipidemia Hypothyroidism, unspecified type Intractable chronic migraine without aura and without status migrainosus Chronic migraine without aura, with intractable migraine, so stated, without mention of status migrainosus Non-rheumatic tricuspid valve insufficiency Tricuspid valve disorders, specified as nonrheumatic Class 3 severe obesity due to excess calories with body mass index (BMI) of 40.0 to 44.9 in adult, unspecified whether serious comorbidity present (HCC) [place] on CPAP Obstructive sleep apnea (adult) (pediatric) Gastroesophageal reflux disease, unspecified whether esophagitis present Chronic kidney disease, unspecified CKD stage Difficult airway for intubation, initial encounter Vision changes- Primary Unspecified visual disturbance Disorder of labyrinth, unspecified laterality Acute frontal sinusitis, recurrence not specified [facility] Diagnosis Pre-operative examination- Primary Preoperative examination, unspecified 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) Bilateral carotid artery stenosis Occlusion and stenosis of carotid artery without mention of cerebral infarction Essential hypertension Unspecified essential hypertension History of DVT (deep vein thrombosis) Personal history of venous thrombosis and embolism History of lumbar fusion Mixed hyperlipidemia Hypothyroidism, unspecified type Intractable chronic migraine without aura and without status migrainosus Chronic migraine without aura, with intractable migraine, so stated, without mention of status migrainosus Non-rheumatic tricuspid valve insufficiency Tricuspid valve disorders, specified as nonrheumatic Class 3 severe obesity due to excess calories with body mass index (BMI) of 40.0 to 44.9 in adult, unspecified whether serious comorbidity present (HCC) [place] on CPAP Obstructive sleep apnea (adult) (pediatric) Gastroesophageal reflux disease, unspecified whether esophagitis present Chronic kidney disease, unspecified CKD stage Difficult airway for intubation, initial encounter Disorder of labyrinth, unspecified laterality- Primary Essential hypertension Unspecified essential hypertension Impacted cerumen, unspecified laterality Dizziness Dizziness and giddiness [facility] Diagnosis Pre-operative examination- Primary Preoperative examination, unspecified 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) Bilateral carotid artery stenosis Occlusion and stenosis of carotid artery without mention of cerebral infarction Essential hypertension Unspecified essential hypertension History of DVT (deep vein thrombosis) Personal history of venous thrombosis and embolism History of lumbar fusion Mixed hyperlipidemia Hypothyroidism, unspecified type Intractable chronic migraine without aura and without status migrainosus Chronic migraine without aura, with intractable migraine, so stated, without mention of status migrainosus Non-rheumatic tricuspid valve insufficiency Tricuspid valve disorders, specified as nonrheumatic Class 3 severe obesity due to excess calories with body mass index (BMI) of 40.0 to 44.9 in adult, unspecified whether serious comorbidity present (HCC) [place] on CPAP Obstructive sleep apnea (adult) (pediatric) Gastroesophageal reflux disease, unspecified whether esophagitis present Chronic kidney disease, unspecified CKD stage Difficult airway for intubation, initial encounter 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) Encounter for screening mammogram for malignant neoplasm of breast Other screening mammogram [facility] Diagnosis Pre-operative examination- Primary Preoperative examination, unspecified 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) Bilateral carotid artery stenosis Occlusion and stenosis of carotid artery without mention of cerebral infarction Essential hypertension Unspecified essential hypertension History of DVT (deep vein thrombosis) Personal history of venous thrombosis and embolism History of lumbar fusion Mixed hyperlipidemia Hypothyroidism, unspecified type Intractable chronic migraine without aura and without status migrainosus Chronic migraine without aura, with intractable migraine, so stated, without mention of status migrainosus Non-rheumatic tricuspid valve insufficiency Tricuspid valve disorders, specified as nonrheumatic Class 3 severe obesity due to excess calories with body mass index (BMI) of 40.0 to 44.9 in adult, unspecified whether serious comorbidity present (HCC) [place] on CPAP Obstructive sleep apnea (adult) (pediatric) Gastroesophageal reflux disease, unspecified whether esophagitis present Chronic kidney disease, unspecified CKD stage Difficult airway for intubation, initial encounter Combined forms of age-related cataract of both eyes- Primary Other and combined forms of senile cataract Other headache syndrome Ocular hypertension, 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 Essential hypertension Unspecified essential hypertension Sleep apnea, unspecified type Hypothyroidism, unspecified type History of blood clots Personal history of venous thrombosis and embolism Anxiety with depression [facility] [place] [facility]* Diagnosis Pre-operative examination- Primary Preoperative examination, unspecified 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) Bilateral carotid artery stenosis Occlusion and stenosis of carotid artery without mention of cerebral infarction Essential hypertension Unspecified essential hypertension History of DVT (deep vein thrombosis) Personal history of venous thrombosis and embolism History of lumbar fusion Mixed hyperlipidemia Hypothyroidism, unspecified type Intractable chronic migraine without aura and without status migrainosus Chronic migraine without aura, with intractable migraine, so stated, without mention of status migrainosus Non-rheumatic tricuspid valve insufficiency Tricuspid valve disorders, specified as nonrheumatic Class 3 severe obesity due to excess calories with body mass index (BMI) of 40.0 to 44.9 in adult, unspecified whether serious comorbidity present (HCC) [place] on CPAP Obstructive sleep apnea (adult) (pediatric) Gastroesophageal reflux disease, unspecified whether esophagitis present Chronic kidney disease, unspecified CKD stage Difficult airway for intubation, initial encounter Worsening headaches- Primary Headache Disorder of labyrinth, unspecified laterality Intractable chronic migraine with aura and without status migrainosus [facility] Diagnosis Pre-operative examination- Primary Preoperative examination, unspecified 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) Bilateral carotid artery stenosis Occlusion and stenosis of carotid artery without mention of cerebral infarction Essential hypertension Unspecified essential hypertension History of DVT (deep vein thrombosis) Personal history of venous thrombosis and embolism History of lumbar fusion Mixed hyperlipidemia Hypothyroidism, unspecified type Intractable chronic migraine without aura and without status migrainosus Chronic migraine without aura, with intractable migraine, so stated, without mention of status migrainosus Non-rheumatic tricuspid valve insufficiency Tricuspid valve disorders, specified as nonrheumatic Class 3 severe obesity due to excess calories with body mass index (BMI) of 40.0 to 44.9 in adult, unspecified whether serious comorbidity present (HCC) [place] on CPAP Obstructive sleep apnea (adult) (pediatric) Gastroesophageal reflux disease, unspecified whether esophagitis present Chronic kidney disease, unspecified CKD stage Difficult airway for intubation, initial encounter Burning with urination- Primary Dysuria Acute cystitis with hematuria Acute cystitis [facility] Diagnosis Pre-operative examination- Primary Preoperative examination, unspecified 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) Bilateral carotid artery stenosis Occlusion and stenosis of carotid artery without mention of cerebral infarction Essential hypertension Unspecified essential hypertension History of DVT (deep vein thrombosis) Personal history of venous thrombosis and embolism History of lumbar fusion Mixed hyperlipidemia Hypothyroidism, unspecified type Intractable chronic migraine without aura and without status migrainosus Chronic migraine without aura, with intractable migraine, so stated, without mention of status migrainosus Non-rheumatic tricuspid valve insufficiency Tricuspid valve disorders, specified as nonrheumatic Class 3 severe obesity due to excess calories with body mass index (BMI) of 40.0 to 44.9 in adult, unspecified whether serious comorbidity present (HCC) [place] on CPAP Obstructive sleep apnea (adult) (pediatric) Gastroesophageal reflux disease, unspecified whether esophagitis present Chronic kidney disease, unspecified CKD stage Difficult airway for intubation, initial encounter Worsening headaches Headache documented in this encounter [facility] note* Diagnosis Pre-operative examination- Primary Preoperative examination, unspecified 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) Bilateral carotid artery stenosis Occlusion and stenosis of carotid artery without mention of cerebral infarction Essential hypertension Unspecified essential hypertension History of DVT (deep vein thrombosis) Personal history of venous thrombosis and embolism History of lumbar fusion Mixed hyperlipidemia Hypothyroidism, unspecified type Intractable chronic migraine without aura and without status migrainosus Chronic migraine without aura, with intractable migraine, so stated, without mention of status migrainosus Non-rheumatic tricuspid valve insufficiency Tricuspid valve disorders, specified as nonrheumatic Class 3 severe obesity due to excess calories with body mass index (BMI) of 40.0 to 44.9 in adult, unspecified whether serious comorbidity present (HCC) [place] on CPAP Obstructive sleep apnea (adult) (pediatric) Gastroesophageal reflux disease, unspecified whether esophagitis present Chronic kidney disease, unspecified CKD stage Difficult airway for intubation, initial encounter 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) documented in this encounter [facility] note* Diagnosis Pre-operative examination- Primary Preoperative examination, unspecified 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) Bilateral carotid artery stenosis Occlusion and stenosis of carotid artery without mention of cerebral infarction Essential hypertension Unspecified essential hypertension History of DVT (deep vein thrombosis) Personal history of venous thrombosis and embolism History of lumbar fusion Mixed hyperlipidemia Hypothyroidism, unspecified type Intractable chronic migraine without aura and without status migrainosus Chronic migraine without aura, with intractable migraine, so stated, without mention of status migrainosus Non-rheumatic tricuspid valve insufficiency Tricuspid valve disorders, specified as nonrheumatic Class 3 severe obesity due to excess calories with body mass index (BMI) of 40.0 to 44.9 in adult, unspecified whether serious comorbidity present (HCC) [place] on CPAP Obstructive sleep apnea (adult) (pediatric) Gastroesophageal reflux disease, unspecified whether esophagitis present Chronic kidney disease, unspecified CKD stage Difficult airway for intubation, initial encounter 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 [facility] [place] [facility]* Diagnosis Pre-operative examination- Primary Preoperative examination, unspecified 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) Bilateral carotid artery stenosis Occlusion and stenosis of carotid artery without mention of cerebral infarction Essential hypertension Unspecified essential hypertension History of DVT (deep vein thrombosis) Personal history of venous thrombosis and embolism History of lumbar fusion Mixed hyperlipidemia Hypothyroidism, unspecified type Intractable chronic migraine without aura and without status migrainosus Chronic migraine without aura, with intractable migraine, so stated, without mention of status migrainosus Non-rheumatic tricuspid valve insufficiency Tricuspid valve disorders, specified as nonrheumatic Class 3 severe obesity due to excess calories with body mass index (BMI) of 40.0 to 44.9 in adult, unspecified whether serious comorbidity present (HCC) [place] on CPAP Obstructive sleep apnea (adult) (pediatric) Gastroesophageal reflux disease, unspecified whether esophagitis present Chronic kidney disease, unspecified CKD stage Difficult airway for intubation, initial encounter 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 documented in this encounter [facility] note* Diagnosis Pre-operative examination- Primary Preoperative examination, unspecified 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) Bilateral carotid artery stenosis Occlusion and stenosis of carotid artery without mention of cerebral infarction Essential hypertension Unspecified essential hypertension History of DVT (deep vein thrombosis) Personal history of venous thrombosis and embolism History of lumbar fusion Mixed hyperlipidemia Hypothyroidism, unspecified type Intractable chronic migraine without aura and without status migrainosus Chronic migraine without aura, with intractable migraine, so stated, without mention of status migrainosus Non-rheumatic tricuspid valve insufficiency Tricuspid valve disorders, specified as nonrheumatic Class 3 severe obesity due to excess calories with body mass index (BMI) of 40.0 to 44.9 in adult, unspecified whether serious comorbidity present (HCC) [place] on CPAP Obstructive sleep apnea (adult) (pediatric) Gastroesophageal reflux disease, unspecified whether esophagitis present Chronic kidney disease, unspecified CKD stage Difficult airway for intubation, initial encounter 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 documented in this encounter [facility] note* Diagnosis Pre-operative examination- Primary Preoperative examination, unspecified 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) Bilateral carotid artery stenosis Occlusion and stenosis of carotid artery without mention of cerebral infarction Essential hypertension Unspecified essential hypertension History of DVT (deep vein thrombosis) Personal history of venous thrombosis and embolism History of lumbar fusion Mixed hyperlipidemia Hypothyroidism, unspecified type Intractable chronic migraine without aura and without status migrainosus Chronic migraine without aura, with intractable migraine, so stated, without mention of status migrainosus Non-rheumatic tricuspid valve insufficiency Tricuspid valve disorders, specified as nonrheumatic Class 3 severe obesity due to excess calories with body mass index (BMI) of 40.0 to 44.9 in adult, unspecified whether serious comorbidity present (HCC) [place] on CPAP Obstructive sleep apnea (adult) (pediatric) Gastroesophageal reflux disease, unspecified whether esophagitis present Chronic kidney disease, unspecified CKD stage Difficult airway for intubation, initial encounter 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 [facility] [place] [facility]* Diagnosis Pre-operative examination- Primary Preoperative examination, unspecified 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) Bilateral carotid artery stenosis Occlusion and stenosis of carotid artery without mention of cerebral infarction Essential hypertension Unspecified essential hypertension History of DVT (deep vein thrombosis) Personal history of venous thrombosis and embolism History of lumbar fusion Mixed hyperlipidemia Hypothyroidism, unspecified type Intractable chronic migraine without aura and without status migrainosus Chronic migraine without aura, with intractable migraine, so stated, without mention of status migrainosus Non-rheumatic tricuspid valve insufficiency Tricuspid valve disorders, specified as nonrheumatic Class 3 severe obesity due to excess calories with body mass index (BMI) of 40.0 to 44.9 in adult, unspecified whether serious comorbidity present (HCC) [place] on CPAP Obstructive sleep apnea (adult) (pediatric) Gastroesophageal reflux disease, unspecified whether esophagitis present Chronic kidney disease, unspecified CKD stage Difficult airway for intubation, initial encounter 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 [facility] [place] [facility]* Diagnosis Pre-operative examination- Primary Preoperative examination, unspecified 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) Bilateral carotid artery stenosis Occlusion and stenosis of carotid artery without mention of cerebral infarction Essential hypertension Unspecified essential hypertension History of DVT (deep vein thrombosis) Personal history of venous thrombosis and embolism History of lumbar fusion Mixed hyperlipidemia Hypothyroidism, unspecified type Intractable chronic migraine without aura and without status migrainosus Chronic migraine without aura, with intractable migraine, so stated, without mention of status migrainosus Non-rheumatic tricuspid valve insufficiency Tricuspid valve disorders, specified as nonrheumatic Class 3 severe obesity due to excess calories with body mass index (BMI) of 40.0 to 44.9 in adult, unspecified whether serious comorbidity present (HCC) [place] on CPAP Obstructive sleep apnea (adult) (pediatric) Gastroesophageal reflux disease, unspecified whether esophagitis present Chronic kidney disease, unspecified CKD stage Difficult airway for intubation, initial encounter Burning with urination- Primary Dysuria Acute cough URI, acute Acute upper respiratory infections of unspecified site Acute cough [facility] [place] [facility]* Diagnosis Pre-operative examination- Primary Preoperative examination, unspecified 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) Bilateral carotid artery stenosis Occlusion and stenosis of carotid artery without mention of cerebral infarction Essential hypertension Unspecified essential hypertension History of DVT (deep vein thrombosis) Personal history of venous thrombosis and embolism History of lumbar fusion Mixed hyperlipidemia Hypothyroidism, unspecified type Intractable chronic migraine without aura and without status migrainosus Chronic migraine without aura, with intractable migraine, so stated, without mention of status migrainosus Non-rheumatic tricuspid valve insufficiency Tricuspid valve disorders, specified as nonrheumatic Class 3 severe obesity due to excess calories with body mass index (BMI) of 40.0 to 44.9 in adult, unspecified whether serious comorbidity present (HCC) [place] on CPAP Obstructive sleep apnea (adult) (pediatric) Gastroesophageal reflux disease, unspecified whether esophagitis present Chronic kidney disease, unspecified CKD stage Difficult airway for intubation, initial encounter Acute cough [facility] [place] [facility]* Diagnosis Pre-operative examination- Primary Preoperative examination, unspecified 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) Bilateral carotid artery stenosis Occlusion and stenosis of carotid artery without mention of cerebral infarction Essential hypertension Unspecified essential hypertension History of DVT (deep vein thrombosis) Personal history of venous thrombosis and embolism History of lumbar fusion Mixed hyperlipidemia Hypothyroidism, unspecified type Intractable chronic migraine without aura and without status migrainosus Chronic migraine without aura, with intractable migraine, so stated, without mention of status migrainosus Non-rheumatic tricuspid valve insufficiency Tricuspid valve disorders, specified as nonrheumatic Class 3 severe obesity due to excess calories with body mass index (BMI) of 40.0 to 44.9 in adult, unspecified whether serious comorbidity present (HCC) [place] on CPAP Obstructive sleep apnea (adult) (pediatric) Gastroesophageal reflux disease, unspecified whether esophagitis present Chronic kidney disease, unspecified CKD stage Difficult airway for intubation, initial encounter Essential hypertension- Primary Unspecified essential hypertension Migraine without aura and without status migrainosus, not intractable Migraine without aura, without mention of intractable migraine without mention of status migrainosus Hypothyroidism due to acquired atrophy of thyroid Anxiety with depression GERD without esophagitis Esophageal reflux Viral URI Acute upper respiratory infections of unspecified site documented in this encounter [facility] note* Diagnosis Pre-operative examination- Primary Preoperative examination, unspecified 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) Bilateral carotid artery stenosis Occlusion and stenosis of carotid artery without mention of cerebral infarction Essential hypertension Unspecified essential hypertension History of DVT (deep vein thrombosis) Personal history of venous thrombosis and embolism History of lumbar fusion Mixed hyperlipidemia Hypothyroidism, unspecified type Intractable chronic migraine without aura and without status migrainosus Chronic migraine without aura, with intractable migraine, so stated, without mention of status migrainosus Non-rheumatic tricuspid valve insufficiency Tricuspid valve disorders, specified as nonrheumatic Class 3 severe obesity due to excess calories with body mass index (BMI) of 40.0 to 44.9 in adult, unspecified whether serious comorbidity present (HCC) [place] on CPAP Obstructive sleep apnea (adult) (pediatric) Gastroesophageal reflux disease, unspecified whether esophagitis present Chronic kidney disease, unspecified CKD stage Difficult airway for intubation, initial encounter 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) documented in this encounter [facility] note* Diagnosis Pre-operative examination- Primary Preoperative examination, unspecified 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) Bilateral carotid artery stenosis Occlusion and stenosis of carotid artery without mention of cerebral infarction Essential hypertension Unspecified essential hypertension History of DVT (deep vein thrombosis) Personal history of venous thrombosis and embolism History of lumbar fusion Mixed hyperlipidemia Hypothyroidism, unspecified type Intractable chronic migraine without aura and without status migrainosus Chronic migraine without aura, with intractable migraine, so stated, without mention of status migrainosus Non-rheumatic tricuspid valve insufficiency Tricuspid valve disorders, specified as nonrheumatic Class 3 severe obesity due to excess calories with body mass index (BMI) of 40.0 to 44.9 in adult, unspecified whether serious comorbidity present (HCC) [place] on CPAP Obstructive sleep apnea (adult) (pediatric) Gastroesophageal reflux disease, unspecified whether esophagitis present Chronic kidney disease, unspecified CKD stage Difficult airway for intubation, initial encounter 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)- Primary Nodular lymphoma of lymph nodes of multiple sites [facility] noteNo assessment information availableW[facility] Work [facility] note* Diagnosis Pre-operative examination- Primary Preoperative examination, unspecified 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) Bilateral carotid artery stenosis Occlusion and stenosis of carotid artery without mention of cerebral infarction Essential hypertension Unspecified essential hypertension History of DVT (deep vein thrombosis) Personal history of venous thrombosis and embolism History of lumbar fusion Mixed hyperlipidemia Hypothyroidism, unspecified type Intractable chronic migraine without aura and without status migrainosus Chronic migraine without aura, with intractable migraine, so stated, without mention of status migrainosus Non-rheumatic tricuspid valve insufficiency Tricuspid valve disorders, specified as nonrheumatic Class 3 severe obesity due to excess calories with body mass index (BMI) of 40.0 to 44.9 in adult, unspecified whether serious comorbidity present (HCC) [place] on CPAP Obstructive sleep apnea (adult) (pediatric) Gastroesophageal reflux disease, unspecified whether esophagitis present Chronic kidney disease, unspecified CKD stage Difficult airway for intubation, initial encounter Urinary tract infection without hematuria, site unspecified- Primary Debility Debility, unspecified Essential hypertension Unspecified essential hypertension Mixed hyperlipidemia Chronic kidney disease, unspecified CKD stage Hypothyroidism, unspecified type B-cell lymphoma, unspecified B-cell lymphoma type, 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) Spinal stenosis, lumbar region, with neurogenic claudication Anxiety with depression Body mass index (BMI) 40.0-44.9, adult (HCC) Neuropathy Mononeuritis of unspecified site Tremor Abnormal involuntary movements Urinary incontinence, unspecified type [facility] [place] [facility]* Diagnosis Pre-operative examination- Primary Preoperative examination, unspecified 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) Bilateral carotid artery stenosis Occlusion and stenosis of carotid artery without mention of cerebral infarction Essential hypertension Unspecified essential hypertension History of DVT (deep vein thrombosis) Personal history of venous thrombosis and embolism History of lumbar fusion Mixed hyperlipidemia Hypothyroidism, unspecified type Intractable chronic migraine without aura and without status migrainosus Chronic migraine without aura, with intractable migraine, so stated, without mention of status migrainosus Non-rheumatic tricuspid valve insufficiency Tricuspid valve disorders, specified as nonrheumatic Class 3 severe obesity due to excess calories with body mass index (BMI) of 40.0 to 44.9 in adult, unspecified whether serious comorbidity present (HCC) [place] on CPAP Obstructive sleep apnea (adult) (pediatric) Gastroesophageal reflux disease, unspecified whether esophagitis present Chronic kidney disease, unspecified CKD stage Difficult airway for intubation, initial encounter Initial Medicare annual wellness visit- Primary Neuropathy Mononeuritis of unspecified site Screening for cholesterol level Screening for lipoid disorders Screening for diabetes mellitus Cognitive changes Other signs and symptoms involving cognition Mixed hyperlipidemia B-cell lymphoma, unspecified B-cell lymphoma type, unspecified body region (HCC) Debility Debility, unspecified Chronic kidney disease, unspecified CKD stage Hypothyroidism, unspecified type Spinal stenosis, lumbar region, with neurogenic claudication [facility] [place] [facility]* Diagnosis Pre-operative examination- Primary Preoperative examination, unspecified 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) Bilateral carotid artery stenosis Occlusion and stenosis of carotid artery without mention of cerebral infarction Essential hypertension Unspecified essential hypertension History of DVT (deep vein thrombosis) Personal history of venous thrombosis and embolism History of lumbar fusion Mixed hyperlipidemia Hypothyroidism, unspecified type Intractable chronic migraine without aura and without status migrainosus Chronic migraine without aura, with intractable migraine, so stated, without mention of status migrainosus Non-rheumatic tricuspid valve insufficiency Tricuspid valve disorders, specified as nonrheumatic Class 3 severe obesity due to excess calories with body mass index (BMI) of 40.0 to 44.9 in adult, unspecified whether serious comorbidity present (HCC) [place] on CPAP Obstructive sleep apnea (adult) (pediatric) Gastroesophageal reflux disease, unspecified whether esophagitis present Chronic kidney disease, unspecified CKD stage Difficult airway for intubation, initial encounter Essential hypertension- Primary Unspecified essential hypertension [facility] [place] [facility]* Diagnosis Pre-operative examination- Primary Preoperative examination, unspecified 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) Bilateral carotid artery stenosis Occlusion and stenosis of carotid artery without mention of cerebral infarction Essential hypertension Unspecified essential hypertension History of DVT (deep vein thrombosis) Personal history of venous thrombosis and embolism History of lumbar fusion Mixed hyperlipidemia Hypothyroidism, unspecified type Intractable chronic migraine without aura and without status migrainosus Chronic migraine without aura, with intractable migraine, so stated, without mention of status migrainosus Non-rheumatic tricuspid valve insufficiency Tricuspid valve disorders, specified as nonrheumatic Class 3 severe obesity due to excess calories with body mass index (BMI) of 40.0 to 44.9 in adult, unspecified whether serious comorbidity present (HCC) CHRISTIANA on CPAP Obstructive sleep apnea (adult) (pediatric) Gastroesophageal reflux disease, unspecified whether esophagitis present Chronic kidney disease, unspecified CKD stage Difficult airway for intubation, initial encounter 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) Nodular lymphoma of lymph nodes of multiple sites documented in this encounter [facility] note* Diagnosis Pre-operative examination- Primary Preoperative examination, unspecified 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) Bilateral carotid artery stenosis Occlusion and stenosis of carotid artery without mention of cerebral infarction Essential hypertension Unspecified essential hypertension History of DVT (deep vein thrombosis) Personal history of venous thrombosis and embolism History of lumbar fusion Mixed hyperlipidemia Hypothyroidism, unspecified type Intractable chronic migraine without aura and without status migrainosus Chronic migraine without aura, with intractable migraine, so stated, without mention of status migrainosus Non-rheumatic tricuspid valve insufficiency Tricuspid valve disorders, specified as nonrheumatic Class 3 severe obesity due to excess calories with body mass index (BMI) of 40.0 to 44.9 in adult, unspecified whether serious comorbidity present (HCC) CHRISTIANA on CPAP Obstructive sleep apnea (adult) (pediatric) Gastroesophageal reflux disease, unspecified whether esophagitis present Chronic kidney disease, unspecified CKD stage Difficult airway for intubation, initial encounter 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 Sylvia Lizama MD Status:ADM I N Location: [place] [address] HPI - General General Date of Admission: 04/01/25 Date of Service: 04/01/25 Chief Complaint: Vertigo and diplopia. HPI Narrative LISA UP, is a 79 F who presents with vertigo, ear fullness, and diplopia. Symptoms began about 4 days ago. He does have a history of PVD but the symptoms are different because those symptoms are typically related with room spinning but she is not having at this time. She gets dizzy when she tries to move or turn her head and medication gets diplopia when she is reading or watching TV. And occasional she is getting fullness in her ears and hearing jansen. She presented emergency room and underwent a workup that was negative for any stroke with a CTA of the head and neck. With her ongoing symptoms, the hospital service was contacted for admission. [facility] Medical History DVT (deep venous thrombosis) Post-menopausal Dyspnea History of stress test Ovarian tumor Anticoagulant long-term use Non Hodgkin's lymphoma Dehiscence of surgical wound GERD (gastroesophageal reflux disease) Restless leg syndrome Peripheral neuropathy Osteoarthritis Hypertension Morbid obesity with BMI of 40.0-44.9, adult Home Medications ?Medication ?Instructions ?Recorded ?Last Taken ?Type potassium chloride 10 mEq 10 meq PO BID supplement 11/25/24 History tablet,extended release(part/cryst) multivitamin with folic acid 400 1 tab PO DAILY vitami n 08/01/18 11/25/24 History mcg tablet (Thera) apixaban 5 mg tablet 5 mg PO BID blood thinner 11/25/24 History levothyroxine 75 mcg tablet 75 mcg PO DAILY thyroid 11/25/24 History carvedilol 25 mg tablet 25 mg PO BID blood pressure 03/24/24 11/25/24 History gabapentin 400 mg capsule 400 mg PO TID nerve pain 12/1311/25/24 History hydralazine 50 mg tablet 50 mg PO BID blood pressure 03/24/24 11/25/24 History paroxetine HCl 10 mg tablet 10 mg PO DAILY mental heal th 03/24/24 11/25/24 History clonidine HCl 0.1 mg tablet 0.1 mg PO BID bp 30 days # 60 tabs 03/26/24 11/25/24 Rx losartan 100 mg tablet 100 mg PO DAILY bp 07/04/24 11/25/24 History meclizine 25 mg tablet 25 mg PO TID dizziness 07/04 Unknown History omeprazole 20 mg capsule,delayed 20 mg PO DAILY PRN ac id reflux 07/04/24 11/25/24 History release albuterol sulfate 90 mcg/actuation 2 puff inhalation Q 4H PRN Wheezing 11/26/24 11/25/24 History aerosol inhaler (Ventolin HFA) Allergy/AdvReac Type Severity Reaction Status Date / Time COVID-19 vaccine, mRNA, Allergy Anaphylaxis Verified 04/01/25 12:34 [id number], erythromycin base Allergy Rash Verified 04/01/25 12:34 (Erythromycin Base) lisinopril Allergy Swelling Verified 04/01/25 12:34 venom-wasp (wasp) Allergy NEEDS Verified 04/01/25 12:34 FOLLOW-UP amlodipine AdvReac Swelling Verified 04/01/25 12:34 latex AdvReac Swelling Verified 04/01/25 12:34 Family History Mother Hypertension Surgical History S/P laparoscopic cholecystectomy S/P hysterectomy H/O laminectomy History of partial nephrectomy History of tonsillectomy History of total knee arthroplasty History of total abdominal hysterectomy Social History Smoking Status: Never smoker ROS ROS Narrative Chronic right leg related with prior back surgeries. Does have chronic numbnessin her legs due to neuropathy from her back surgeries. All review of systems were negative except as mentioned above in the history of present illness and the other review of systems. Vital Signs Vital Signs Vital Signs: 04/01/25 12:34 04/01/25 13:34 04/01/25 14:26 Temperature 36.6 C Temperature Source Temporal Pulse Rate 72 69 68 Respiratory Rate 14 Respiratory Effort Respiratory Pattern Blood Pressure 126/59 H 139/63 H 137/69 H Blood Pressure Mean 81 88 91 Pulse Ox 98 96 96 Oxygen Delivery Method Room Air 04/01/25 14:53 04/01/25 14:54 04/01/25 14:59 Temperature Temperature Source Pulse Rate Respiratory Rate Respiratory Effort Normal Respiratory Pattern Normal Blood Pressure Blood Pressure Mean Pulse Ox Oxygen Delivery Method Room Air Room Air 04/01/25 14:59 04/01/25 15:29 04/01/25 15:30 Temperature Temperature Source Pulse Rate 68 66 66 Respiratory Rate 14 16 16 Respiratory Effort Respiratory Pattern Blood Pressure 149/65 H 152/78 H 152/78 H Blood Pressure Mean 93 102 102 Pulse Ox 100 98 99 Oxygen Delivery Method 04/01/25 16:00 04/01/25 16:00 04/01/25 16:30 Temperature Temperature Source Pulse Rate 67 67 66 Respiratory Rate 16 16 17 Respiratory Effort Respiratory Pattern Blood Pressure 157/82 H 157/82 H 171/91 H Blood Pressure Mean 107 107 117 Pulse Ox 99 99 98 Oxygen Delivery Method Room Air 04/01/25 17:00 04/01/25 17:00 04/01/25 17:34 Temperature Temperature Source Pulse Rate 70 67 66 Respiratory Rate 20 H 16 16 Respiratory Effort Respiratory Pattern Blood Pressure 173/84 H 173/84 H 160/98 H Blood Pressure Mean 113 113 118 Pulse Ox 98 98 99 Oxygen Delivery Method 04/01/25 17:35 Temperature 36.7 C Temperature Source Pulse Rate 66 Respiratory Rate 16 Respiratory Effort Respiratory Pattern Blood Pressure 160/98 H Blood Pressure Mean 118 Pulse Ox 99 Oxygen Delivery Method Weight Weight: 109 kg Body Mass Index (BMI) 43.9 Physical Exam Narrative - Physical Exam General: Alert, Oriented x3, Cooperative HEENT: Atraumatic, PERRLA, EOMI, Normocephalic. Tympanic membranes are visualized and no effusions were noted. No erythema of the tympanic membranes. Oral: Moist Mucosa, No Gingival or Mucosal Lesions/ Ulcerations Neck: Supple, No JVD, Negative Carotid Bruits Lungs: Clear to auscultation, Normal air movement Cardiovascular: Regular rate, Normal S1, Normal S2, No murmurs Abdomen: Bowel Sounds Present, Soft, Non Tender, Non-Distended, No Hepato-splenomegaly Extremities: No clubbing, No cyanosis, No edema, Capillary Refill Less than 3 Seconds Skin: No rashes, No breakdown Musculoskeletal: No Tenderness to Palpation of Joints or Extremities Neurological: Neuro grossly intact. Cranial nerves II through XII gross intact. Muscle strength 5-5 in upper extremities bilaterally and 4 out of 5 in lower extremities bilaterally. Sensation grossly intact throughout. Patient had limited range of motion in her lower extremities but grossly. Normal. Finger-nose was within normal limits. Psych/Mental Status: Normal Affect, Appropriate Results Lab / Micro Data Attestation: I reviewed the patient's lab results. 04/01/25 14:25 04/01/25 14:25 Labs: Laboratory Results - last 24 hr 04/01/25 14:25: WBC 6.0, RBC 4.25, Hgb 13.4, Hct 41.1, MCV 96.7, MCH 31.5, MCHC 32.6, RDW Std Deviation 44.5 H, RDW Coeff of [place] 12.5, Plt Count 147 L, MPV 10.1, Immature Gran % (Auto) 0.200, Neut % (Auto) 62.6, Lymph % (Auto) 23.5, [place] % (Auto) 9.6, Eos % (Auto) 3.9, Baso % (Auto) 0.2, Absolute Neuts (auto) 3.7, Absolute Lymphs (auto) 1.40, Nucleated RBC % 0, PT 17.0 H, INR 1.4, APTT 32.1, Sodium 141, Potassium 4.2, Chloride 103, Carbon Dioxide 27.5, Anion Gap 11, BUN 14, Creatinine 0.91, Est GFR (MDRD) Non-Af 64, BUN/Creatinine Ratio 15.9, Glucose 107 H, Calcium 9.9, Troponin T High Sens 12 D 04/01/25 14:50: POC Glucose 109 H Imaging Radiology Impression Head/Neck CTA 04/01/25 15:00 IMPRESSION: 1. Widely patent intracranial and cervical arterial vasculature. 2. No evidence of acute intracranial pathology. 3. Mild volume loss and chronic microangiopathic changes. Reading Location: [id number] Assessment & Plan Assessment/Plan (1) Vertigo: PLAN: Along with status post ear fullness and abnormal sounds. No obvious effusions noted on otoscopic exam. Etiologies could be posterior circulation stroke versus benign paroxysmal positional vertigo though her symptoms are atypical for M?ni?re's disease. Plan is to do an MRI of the brain, echocardiogram, therapy evaluations. Continue with as needed meclizine. PT OT evaluate and treat. PLAN: Plan Chronic conditions * CHRISTIANA: Continue CPAP available. * Obesity class III: Complicates care and recovery. * Hypertension: Continue with carvedilol * Hypothyroidism: Continue levothyroxine. * Depression: Continue with paroxetine. * Non-Hodgkin's lymphoma: Follow-up with oncology * History of DVT: Continue with apixaban. VTE prophylaxis: Not indicated as patient is already anticoagulated apixaban. CODE STATUS: Addressed with patient. Patient wishes to be full code. Charges/Coding Visit Charges Inpatient E&M: 32307 Init Hosp L3 04/01/25 1746 <Electronically signed by Andrade Tapia DO> Cosigner Signature (if applicable): CC: Dr. Andrade Tapia DO; Dr. Sylvia Lizama MD~ Signed [facility] Work Phone: Instructions* Instruction Description Start Date Completed [facility] Work Phone: Reason for referral (narrative)* Diagnostic Procedure Only (Routine) - Authorized Specialty Diagnoses / Procedures Referred By Donnie dietrich Referred To Contact [facility] Diagnoses Encounter for screening mammogram for malignant neoplasm of breast Procedures ROXANNE SCREENING W ANTHONY SCREENING DIGITAL BREAST TOMOSYNTHESIS BI SCREENING MAMMOGRAPHY BI 2-VIEW BREAST INC CAD Melba Escudero MD [address] [place] [address] [facility] [address] [place] [address] Referral ID Status Reason Start Date Expiration Date Visits Requested Visits Authorized [id number] Authorized Auto-Generat ed Referral 01/29/2022 02/28/2023 1 1 * MRI/CT (Routine) - Authorized Specialty Diagnoses / Procedures Referred By Donnie dietrich Referred To Contact CT IMAGING Diagnoses 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) Procedures CT CHEST W IVCON DIAGNOSTIC COMPUTED TOMOGRAPHY THORAX W/CONTRAST Melba Escudero MD [address] [facility] [place] [address] Ct Imaging Referral ID Status Reason Start Date Expiration Date Visits Requested Visits Authorized [id number] Authorized Auto-Generat ed Referral 05/01/2022 02/28/2023 1 1 * MRI/CT (Routine) - Authorized Specialty Diagnoses / Procedures Referred By Contac t Referred To Contact CT IMAGING Diagnoses 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) Procedures CT ABD/PEL W IVCON CT ABD & PELVIS W/CONTRAST Melba Escudero MD [address] [place] [address] Ct Imaging Referral ID Status Reason Start Date Expiration Date Visits Requested Visits Authorized [id number] Authorized Auto-Generat ed Referral 05/01/2022 02/28/2023 1 1 [facility] for referral (narrative)* Diagnostic Procedure Only (Routine) - Authorized Specialty Diagnoses / Procedures Referred By Contac t Referred To Contact [facility] Diagnoses CHRISTIANA (obstructive sleep apnea) Procedures HOME SLEEP APNEA TEST (HSAT) SLEEP STD AIRFLOW HRT RATE&O2 SAT EFFORT Sylvia Myers MD [address] [place] [address] [facility] [address] [place] [address] Referral ID Status Reason Start Date Expiration Date Visits Requested Visits Authorized [id number] Authorized Auto-Generat ed Referral 11/27/2022 11/27/2023 1 1 [facility] for referral (narrative)* Diagnostic Procedure Only (Routine) - Closed Specialty Diagnoses / Procedures Referred By Contac t Referred To Contact XR IMAGING Diagnoses Acute pain of left shoulder Procedures XR SHOULDER GENERAL 3V OR MORE AP/TRUE AP/OTHER LEFT RADEX SHOULDER COMPLETE MINIMUM 2 VIEWS Elissa Felipe, BECKY.CRISIS COUNSELOR [address] [place] [address] Xr Imaging Referral ID Status Reason Start Date Expiration Date V isits Requested Visits Authorized [id number] Closed Auto-Generate d Referral 03/24/2023 04/22/2024 1 1 [facility] for referral (narrative)* Outpatient Procedure (Routine) - Authorized Specialty Diagnoses / Procedures Referred By Contac t Referred To Contact [facility] Diagnoses Bilateral carotid artery stenosis Procedures US CAROTID ARTERIES [facility] DUPLEX SCAN EXTRACRANIAL ART COMPL BI STUDY Sylvia Lizama MD [address] [place] [address] [facility] [address] [address] Referral ID Status Reason Start Date Expiration Date Visits Requested Visits Authorized [id number] Authorized Auto-Generat ed Referral 04/03/2023 04/02/2024 1 1 * Diagnostic Procedure Only (Routine) - Closed Specialty Diagnoses / Procedures Referred By Contac t Referred To Contact XR IMAGING Diagnoses Left arm pain Neck pain Procedures XR CERV OTHER 4V AP/LAT/OBL RADEX SPINE CERVICAL 4 OR 5 VIEWS Sylvia Lizama MD [address] [place] [address] Xr Imaging Referral ID Status Reason Start Date Expiration Date V isits Requested Visits Authorized [id number] Closed Auto-Generate d Referral 04/03/2023 05/02/2024 1 1 * Physical Therapy (Routine) - Authorized Specialty Diagnoses / Procedures Referred By Contac t Referred To Contact [facility] Diagnoses Left arm pain Neck pain Procedures CONSULT TO PHYSICAL THERAPY PHYSICAL THERAPY EVALUATION HIGH COMPLEX 45 MINS Sylvia Lizama MD [facility] [place] [address] [facility] [address] [address] Referral ID Status Reason Start Date Expiration Date Visits Requested Visits Authorized [id number] Authorized PCP Requested Referral Auto-Generate d Referral 04/03/2023 04/02/2024 99 99 T [facility] for referral (narrative)* Diagnostic Procedure Only (Routine) - Authorized Specialty Diagnoses / Procedures Referred By Donnie t Referred To Contact [facility] Diagnoses Encounter for screening mammogram for malignant neoplasm of breast Procedures ROXANNE SCREENING W ANTHONY SCREENING DIGITAL BREAST TOMOSYNTHESIS BI SCREENING MAMMOGRAPHY BI 2-[place] [address] [place] [id number] [facility] [address] [place] [address] Referral ID Status Reason Start Date Expiration Date Visits Requested Visits Authorized [id number] Authorized Auto-Generat ed Referral 06/13/2023 07/12/2024 1 1 T [facility] for referral (narrative)* Outpatient Procedure (Routine) - Authorized Specialty Diagnoses / Procedures Referred By Contcaryl t Referred To Contact [facility] Diagnoses Valvular heart disease Procedures ECHO ECHO TTHRC R-T 2D W/WOM-MODE COMPL SPEC&COLR D Sylvia Lizama MD [address] [place] [address] [facility] [address] [place] [id number] Referral ID Status Reason Start Date Expiration Date Visits Requested Visits Authorized [id number] Authorized Auto-Generat ed Referral 07/07/2024 1 1 [facility] for referral (narrative)* Diagnostic Procedure Only (Routine) - Closed Specialty Diagnoses / Procedures Referred By Donnie t Referred To Contact [facility] Diagnoses Encounter for screening mammogram for malignant neoplasm of breast Procedures ROXANNE SCREENING W ANTHONY SCREENING DIGITAL BREAST TOMOSYNTHESIS BI SCREENING MAMMOGRAPHY BI 2-[place] [address] [place] [id number] [facility] [address] [place] [address] Referral ID Status Reason Start Date Expiration Date V isits Requested Visits Authorized [id number] Closed Auto-Generate d Referral 06/13/2023 07/12/2024 1 1 [facility] for referral (narrative)* Diagnostic Procedure Only (Routine) - Authorized Specialty Diagnoses / Procedures Referred By Contac t Referred To Contact [facility] IM[facility] Diagnoses Neck mass Procedures US HEAD/NECK SOFT TISSUE OTHER US SOFT TISSUE HEAD & NECK REAL TIME IMGE Sathya Roa MD [address] [place] [address] [place] [address] Referral ID Status Reason Start Date Expiration Date Visits Requested Visits Authorized [id number] Authorized Auto-Generat ed Referral 10/27/2023 11/25/2024 1 1 [facility] for referral (narrative)* Outpatient Procedure (Routine) - Authorized Specialty Diagnoses / Procedures Referred By Contac t Referred To Contact [facility] Diagnoses Diarrhea, unspecified type Procedures COLONOSCOPY DIAGNOSTIC COLONOSCOPY FLX DX W/COLLJ SPEC WHEN PFRMD Zeny Crowder MD [address] [place] [address] [facility] [address] [place] [address] Referral ID Status Reason Start Date Expiration Date Visits Requested Visits Authorized [id number] Authorized Auto-Generat ed Referral 03/29/2024 03/29/2025 1 1 T [facility] for referral (narrative)* Diagnostic Procedure Only (Routine) - Authorized Specialty Diagnoses / Procedures Referred By Contac t Referred To Contact [facility] Diagnoses Soft tissue mass Procedures US EXTREMITY MASS/FLUID COLLECTION LEFT ySlvia Lizama MD [address] [place] [address] [place] [address] Referral ID Status Reason Start Date Expiration Date Visits Requested Visits Authorized [id number] Authorized Auto-Generat ed Referral 04/02/2024 05/02/2025 1 1 [facility] for referral (narrative)* Diagnostic Procedure Only (Routine) - Closed Specialty Diagnoses / Procedures Referred By Contac t Referred To Contact [facility] Diagnoses Soft tissue mass Procedures US EXTREMITY MASS/FLUID COLLECTION LEFT Sylvia Lizama MD [address] [place] [address] [place] [address] Referral ID Status Reason Start Date Expiration Date V isits Requested Visits Authorized [id number] Closed Auto-Generate d Referral 04/02/2024 05/02/2025 1 1 [facility] for referral (narrative)* Outpatient Procedure (Routine) - Closed Specialty Diagnoses / Procedures Referred By Contac t Referred To Contact [facility] Diagnoses Diarrhea, unspecified type Procedures COLONOSCOPY DIAGNOSTIC COLONOSCOPY FLX DX W/COLLJ SPEC WHEN PFRMD Zeny Crowder MD [address] [place] [address] [facility] [address] [place] [id number] Referral ID Status Reason Start Date Expiration Date V isits Requested Visits Authorized [id number] Closed Auto-Generate d Referral 03/29/2024 03/29/2025 1 1 [facility] for referral (narrative)* Diagnostic Procedure Only (Routine) - Closed Specialty Diagnoses / Procedures Referred By Contac t Referred To Contact XR IMAGING Diagnoses Left arm pain Neck pain Procedures XR CERV OTHER 4V AP/LAT/OBL RADEX SPINE CERVICAL 4 OR 5 VIEWS Sylvia Lizama MD [address] [place] [address] [place] [address] Referral ID Status Reason Start Date Expiration Date V isits Requested Visits Authorized [id number] Closed Auto-Generate d Referral 04/03/2023 05/02/2024 1 1 [facility] for referral (narrative)* Diagnostic Procedure Only (Routine) - Closed Specialty Diagnoses / Procedures Referred By Contac t Referred To Contact XR IMAGING Diagnoses Acute pain of left shoulder Procedures XR SHOULDER GENERAL 3V OR MORE AP/TRUE AP/OTHER LEFT RADEX SHOULDER COMPLETE MINIMUM 2 VIEWS Elissa Felipe, CRISIS COUNSELOR [address] [place] [address] [place] [address] Referral ID Status Reason Start Date Expiration Date V isits Requested Visits Authorized [id number] Closed Auto-Generate d Referral 03/24/2023 04/22/2024 1 1 [facility] for referral (narrative)No reason for referral [facility] Narrative* Diagnostic Procedure Only (Routine) - Closed Specialty Diagnoses / Procedures Referred By Contac t Referred To Contact [facility] Diagnoses Encounter for screening mammogram for malignant neoplasm of breast Procedures ROXANNE SCREENING W ANTHONY SCREENING DIGITAL BREAST TOMOSYNTHESIS BI SCREENING MAMMOGRAPHY BI 2-[place] [address] [place] [address] [facility] [address] [place] [address] Referral ID Status Reason Start Date Expiration Date V isits Requested Visits Authorized [id number] Closed Auto-Generate d Referral 06/13/2023 07/12/2024 1 1 [facility] for visit Narrative* Outpatient Procedure (Routine) - Closed Specialty Diagnoses / Procedures Referred By Contac t Referred To Contact [facility] Diagnoses Diarrhea, unspecified type Procedures COLONOSCOPY DIAGNOSTIC COLONOSCOPY FLX DX W/COLLJ SPEC WHEN PFRMD Zeny Crowder MD [address] [place] [address] [facility] [address] [place] [address] Referral ID Status Reason Start Date Expiration Date V isits Requested Visits Authorized [id number] Closed Auto-Generate d Referral 03/29/2024 03/29/2025 1 1 [facility] for visit Narrative* Diagnostic Procedure Only (Routine) - Closed Specialty Diagnoses / Procedures Referred By Contac t Referred To Contact XR IMAGING Diagnoses Left arm pain Neck pain Procedures XR CERV OTHER 4V AP/LAT/OBL RADEX SPINE CERVICAL 4 OR 5 VIEWS Sylvia Lizama MD [address] [place] [address] [place] [address] Referral ID Status Reason Start Date Expiration Date V isits Requested Visits Authorized [id number] Closed Auto-Generate d Referral 04/03/2023 05/02/2024 1 1 [facility] for visit Narrative* Diagnostic Procedure Only (Routine) - Closed Specialty Diagnoses / Procedures Referred By Contac t Referred To Contact XR IMAGING Diagnoses Acute pain of left shoulder Procedures XR SHOULDER GENERAL 3V OR MORE AP/TRUE AP/OTHER LEFT RADEX SHOULDER COMPLETE MINIMUM 2 VIEWS Elissa Felipe, PUBLIC POLICY PROFESSOR.CRISIS COUNSELOR [address] [place] [address] [place] [address] Referral ID Status Reason Start Date Expiration Date V isits Requested Visits Authorized [id number] Closed Auto-Generate d Referral 03/24/2023 04/22/2024 1 1 [facility] for visit Narrative* Diagnostic Procedure Only (Routine) - Closed Specialty Diagnoses / Procedures Referred By Contac t Referred To Contact [facility] Diagnoses 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) Encounter for screening mammogram for malignant neoplasm of breast Procedures ROXANNE SCREENING W ANTHONY SCREENING DIGITAL BREAST TOMOSYNTHESIS BI SCREENING MAMMOGRAPHY BI 2-VIEW BREAST INC Brendon Hines, PUBLIC POLICY PROFESSOR.CRISIS COUNSELOR [address] [place] [address] [facility] [address] [facility] [place] [address] Referral ID Status Reason Start Date Expiration Date V isits Requested Visits Authorized [id number] Closed Auto-Generate d Referral 12/16/2023 01/14/2025 1 1 [facility] for visit Narrative* MRI/CT (Routine) - Closed Specialty Diagnoses / Procedures Referred By Contac t Referred To Contact CT IMAGING Diagnoses 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) Procedures CT ABD/PEL W IVCON CT ABD & PELVIS W/CONTRAST César Quintero, DO [address] [place] [address] Phone: tel: fax: [place] [phone] Referral ID Status Reason Start Date Expiration Date V isits Requested Visits Authorized [id number] Closed Auto-Generate d Referral 09/03/2024 10/03/2025 1 1 [facility] for visit Narrative* MRI/CT (Routine) - Closed Specialty Diagnoses / Procedures Referred By Donnie dietrich Referred To Contact CT IMAGING Diagnoses 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) Procedures CT CHEST W IVCON DIAGNOSTIC COMPUTED TOMOGRAPHY THORAX W/CONTRAST César Quintero, DO [address] [place] [address] Phone: tel: fax: [place] [address] Referral ID Status Reason Start Date Expiration Date V isits Requested Visits Authorized [id number] Closed Auto-Generate d Referral 12/10/2024 01/09/2026 1 1 [facility] Summary Purpose Family History Relationship Condition Age at Onset Recorded Date/T jacki mother Hypertension Unknown Advance Directives Documents on File Type Date Recorded Patient Rn Integrity Expl anation ACP-Advance Directive ACP-Power of Opener Latest Code Status on File Code Status Date Activated Date Inactivated Comments Full Code 08/07/2018 8:13 PM 08/10/2018 8:44 PM Limited 08/03/2018 4:44 AM 08/07/2018 8:11 PM Intubation/Re-intubation: No Defibrillation/Cardioversion: Yes Chest Compressions: Yes Resuscitative Medications: Yes Full Code 08/02/2018 12:15 AM 08/03/2018 4:44 AM Documents on File Type Date Recorded Patient Rn Integrity Expl anation Advance Directives and Living Will Power of Opener Documents on File Type Date Recorded Patient Rn Integrity Expl anation Advance Directive(s) 05/19/2021 3:38 PM Advance Directive(s) 05/17/2021 11:34 AM Advance Directive(s) 05/17/2021 11:08 PM Advance Directive(s) 05/02/2019 4:38 AM Advance Directive(s) 03/17/2018 9:12 AM Advance Directive(s) 03/03/2018 10:10 AM Advance Directive(s) 03/03/2018 10:33 AM Advance Directive(s) 08/12/2017 11:58 AM Advance Directive(s) 07/29/2017 10:22 AM Advance Directive(s) 07/15/2017 12:31 PM Advance Directive(s) 05/22/2017 12:56 PM Advance Directive(s) 03/27/2017 1:23 PM Advance Directive(s) 03/13/2017 4:14 PM Advance Directive(s) 12/04/2016 9:48 AM Advance Directive(s) 11/27/2016 3:42 PM Latest Code Status on File Code Status Date Activated Date Inactivated Comments Full Code 05/18/2021 4:06 AM 06/01/2021 5:05 PM Full Code Order Discussed With: Surrogate Keara on Maker Documents on File Type Date Recorded Patient Rn Integrity Expl anation Advance Directive(s) 05/19/2021 3:38 PM Advance Directive(s) 05/17/2021 11:34 AM Advance Directive(s) 05/17/2021 11:08 PM Advance Directive(s) 05/02/2019 4:38 AM Advance Directive(s) 03/17/2018 9:12 AM Advance Directive(s) 03/03/2018 10:10 AM Advance Directive(s) 03/03/2018 10:33 AM Advance Directive(s) 08/12/2017 11:58 AM Advance Directive(s) 07/29/2017 10:22 AM Advance Directive(s) 07/15/2017 12:31 PM Advance Directive(s) 05/22/2017 12:56 PM Advance Directive(s) 03/27/2017 1:23 PM Advance Directive(s) 03/13/2017 4:14 PM Advance Directive(s) 12/04/2016 9:48 AM Advance Directive(s) 11/27/2016 3:42 PM Latest Code Status on File Code Status Date Activated Date Inactivated Comments Full Code 05/18/2021 4:06 AM 06/01/2021 5:05 PM Advance Directive Response Recorded Date/ Time Name of Medical Power of Opener Shauna Up July 30, 2022 2:38pm Advance Directives Yes July 26, 2016 3:22pm Living Will No July 30 2:38pm Power of Opener Yes July 30, 2022 2:38pm Latest Code Status on File Code Status Date Activated Date Inactivated Comments Full Code 05/18/2021 4:06 AM 06/01/2021 5:05 PM Question Answer Comments Full Code Order Discussed With: Surrogate Decisi on Maker Latest Code Status on File Code Status Date Activated Date Inactivated Comments Full Code 05/18/2021 4:06 AM 06/01/2021 5:05 PM Question Answer Comments Full Code Order Discussed With: Surrogate Decisi on Maker Date Activated Date Inactivated Comments 05/18/2021 4:06 AM 06/01/2021 5:05 PM Question Answer Comments Full Code Order Discussed With: Surrogate Decisi on Maker Date Activated Date Inactivated Comments 05/18/2021 4:06 AM 06/01/2021 5:05 PM Question Answer Comments Full Code Order Discussed With: Surrogate Decisi on Maker Advance Directive Response Recorded Date/ Time Living Will No November 06, 025 2:28pm Power of Opener No November 06, 2024 2:28pm Living Will Yes November 26, 2024 11:17am Power of Opener Yes November 26 11:17am Name of Medical Power of Opener DAUGHTER November 26, 2024 11:17am Advance Directives Yes July 26, 2016 3:22pm Advance Directive Response Recorded Date/ Time Living Will No November 06, 025 3:28pm Power of Opener No November 06, 2024 3:28pm Living Will Yes November 26, 2024 6:31pm Power of Opener Yes November 26 6:31pm Name of Medical Power of Opener DAUGHTER - Nancy Wong November 26, 2024 6:31pm Advance Directives Yes July 26, 2016 4:22pm Advance Directive Response Recorded Date/ Time Do you have a Healthcare Power of Opener? No April 01, 2025 2:54pm Advance Directives Yes July 26, 2016 4:22pm Discharge Instructions * Attachments The following attachments cannot be sent through Care Everywhere. * UTI (Urinary Tract Infection): Female ([place]) documented in this encounter* Instructions* Pavel Watts MD - 09/13/2020 We will contact you if any of your viral studies are positive including COVID 19. Contact her physician's office for a follow-up appointment. * Attachments The following attachments cannot be sent through Care Everywhere. * URI (Upper Respiratory Infection) ([place]) documented in this encounter Assessments Diagnosis Acute UTI- Primary Urinary tract infection, site not specified Chills Chills (without fever) Diagnosis Upper respiratory tract infection, unspecified type- Primary Chief Complaint Chief Complaint Description Start Date lower back post Removal Hard molina L4-5-S1 with Wound I&D on 08/14/2021 Preliminary chief co mplaint data, not yet signed by the author as of Health Concerns Infection Onset Date Last Indicated Resolved Time COVID-19 Rule-Out 05/17/2021 05/17/2021 05/18/2021 12:16 AM EDT Medications Administered Section Inactive Administered Medications - up to 3 most recent administrations Medication Order MAR Action Action Date Dose Rate Site bendamustine 188.1 mg in NaCl 0.9% 547.524 mL (BELRAPZO) 188.1 mg (90 mg/m2 2.09 m2 Treatment Plan BSA from Recorded weight), INTRAVENOUS, Administer over 30 Minutes, ONCE, 1 dose, On Fri06/28/22 at 1000, exp 1300 06/28/22 (room temp) Hazardous Chemotherapy Drug: Use appropriate PPE. Antineoplastic Irritant. Refrigerate. Product dispensed: BELRAPZO New Bag/Syringe/Bottle 06/28/2022 10:09 AM EDT 188.1 mg dexAMETHasone 10 mg/NS 50 mL (PYXIS) 10 mg ivpb (DECADRON) 10 mg, INTRAVENOUS, ONCE, 1 dose, On Fri06/28/22 at 1000, Refrigerate. New Bag/Syringe/Bottle 06/28/2022 9:44 AM EDT 10 mg Inactive Administered Medications - up to 3 most recent administrations Medication Order MAR Action Action Date Dose Rate Site acetaminophen 650 mg tab(s) (TYLENOL) 650 mg, ORAL, ONCE, 1 dose, On Fri09/02/22 at 0830, Give 30 minutes prior to infusion. No more than 4000 mg of acetaminophen should be given per day (FROM ALL SOURCES), If ordered PRN for pain, patient/guardian may elect to receive this medication for higher pain levels INSTEAD of the opioid, if preferred: N/A Given 09/02/2022 8:26 AM EST 650 mg bendamustine 146.3 mg in NaCl 0.9% 545.852 mL (BELRAPZO) 146.3 mg (70 mg/m2 2.09 m2 Treatment Plan BSA from Recorded weight), INTRAVENOUS, Administer over 30 Minutes, ONCE, 1 dose, On Fri09/02/22 at 0830, exp 1200 09/02/22 (room temp) Hazardous Chemotherapy Drug: Use appropriate PPE. Antineoplastic Irritant. Refrigerate. Product dispensed: BELRAPZO New Bag/Syringe/Bottle 09/02/2022 9:05 AM EST 146.3 mg dexAMETHasone 10 mg/NS 50 mL (PYXIS) 10 mg ivpb (DECADRON) 10 mg, INTRAVENOUS, ONCE, 1 dose, On Fri09/02/22 at 0830, Refrigerate. New Bag/Syringe/Bottle 09/02/2022 8:27 AM EST 10 mg diphenhydrAMINE 50 mg (BENADRYL) 50 mg, ORAL, ONCE, 1 dose, On Fri09/02/22 at 0830, Give 30 minutes prior to infusion. Given 09/02/2022 8:26 AM EST 50 mg palonosetron 0.25 mg injection (ALOXI) 0.25 mg, INTRAVENOUS, ONCE, 1 dose, On Fri09/02/22 at 0830, Flush IV line with NS prior to and following administration. Given 09/02/2022 8:26 AM EST 0.25 mg riTUXimab-pvvr 783.75 mg in NaCl 0.9% 618.375 mL (RUXIENCE) 783.75 mg (375 mg/m2 2.09 m2 Treatment Plan BSA from Recorded weight), INTRAVENOUS, ONCE, 1 dose, On Fri09/02/22 at 0830, exp 0830 09/03/22 (room temp) Infuse at rate of 100mg/hr. If no hypotension, increase rate every 30 minutes by 100mg/hr to a maximum rate of 400mg/hr. Refrigerate. Rate/Dose Change 09/02/2022 11:31 AM EST 316 mL/hr Rate/Dose Change 09/02/2022 11:00 AM EST 237 mL /hr Rate/Dose Change 09/02/2022 10:28 AM EST 158 mL /hr Inactive Administered Medications - up to 3 most recent administrations Medication Order MAR Action Action Date Dose Rate Site bendamustine 146.3 mg in NaCl 0.9% 545.852 mL (BELRAPZO) 146.3 mg (70 mg/m2 2.09 m2 Treatment Plan BSA from Recorded weight), INTRAVENOUS, Administer over 30 Minutes, ONCE, 1 dose, On Fri09/03/22 at 1400, exp 1700 09/03/22 (room temp) Hazardous Chemotherapy Drug: Use appropriate PPE. Antineoplastic Irritant. Refrigerate. Product dispensed: BELRAPZO New Bag/Syringe/Bottle 09/03/2022 2:25 PM EST 146.3 mg dexAMETHasone 10 mg/NS 50 mL (PYXIS) 10 mg ivpb (DECADRON) 10 mg, INTRAVENOUS, ONCE, 1 dose, On Fri09/03/22 at 1400, Refrigerate. New Bag/Syringe/Bottle 09/03/2022 2:10 PM EST 10 mg Inactive Administered Medications - up to 3 most recent administrations Medication Order MAR Action Action Date Dose Rate Site acetaminophen 650 mg tab(s) (TYLENOL) 650 mg, ORAL, ONCE, 1 dose, On Fri10/01/22 at 0830, Give 30 minutes prior to infusion. No more than 4000 mg of acetaminophen should be given per day (FROM ALL SOURCES), If ordered PRN for pain, patient/guardian may elect to receive this medication for higher pain levels INSTEAD of the opioid, if preferred: N/A Given 10/01/2022 8:33 AM EST 650 mg bendamustine 146.3 mg in NaCl 0.9% 545.852 mL (BELRAPZO) 146.3 mg (70 mg/m2 2.09 m2 Treatment Plan BSA from Recorded weight), INTRAVENOUS, Administer over 30 Minutes, ONCE, 1 dose, On Fri10/01/22 at 0830, exp 1230 10/01/22 (room temp) Hazardous Chemotherapy Drug: Use appropriate PPE. Antineoplastic Irritant. Refrigerate. Product dispensed: BELRAPZO New Bag/Syringe/Bottle 10/01/2022 8:57 AM EST 146.3 mg dexAMETHasone 10 mg/NS 50 mL (PYXIS) 10 mg ivpb (DECADRON) 10 mg, INTRAVENOUS, ONCE, 1 dose, On Fri10/01/22 at 0830, Refrigerate. New Bag/Syringe/Bottle 10/01/2022 8:33 AM EST 10 mg diphenhydrAMINE 50 mg (BENADRYL) 50 mg, ORAL, ONCE, 1 dose, On Fri10/01/22 at 0830, Give 30 minutes prior to infusion. Given 10/01/2022 8:33 AM EST 50 mg palonosetron 0.25 mg injection (ALOXI) 0.25 mg, INTRAVENOUS, ONCE, 1 dose, On Fri10/01/22 at 0830, Flush IV line with NS prior to and following administration. Given 10/01/2022 8:33 AM EST 0.25 mg riTUXimab-pvvr 783.75 mg in NaCl 0.9% 250 mL (RUXIENCE) 783.75 mg (375 mg/m2 2.09 m2 Treatment Plan BSA from Recorded weight), INTRAVENOUS, ONCE, 1 dose, On Fri10/01/22 at 0830, exp 0800 10/02/22 (room temp) Total Volume = 250 ml Infuse 50 ml over 30 minutes then 200 ml over 60 minutes. Refrigerate., Medication Substitution: [facility] preferred product has been replaced with the insurance mandated product New Bag/Syringe/Bottle 10/01/2022 9:42 AM EST 783.75 mg Inactive Administered Medications - up to 3 most recent administrations Medication Order MAR Action Action Date Dose Rate Site bendamustine 146.3 mg in NaCl 0.9% 545.852 mL (BELRAPZO) 146.3 mg (70 mg/m2 2.09 m2 Treatment Plan BSA from Recorded weight), INTRAVENOUS, Administer over 30 Minutes, ONCE, 1 dose, On Fri10/02/22 at 1130, exp 1430 10/02/22 (room temp) Hazardous Chemotherapy Drug: Use appropriate PPE. Antineoplastic Irritant. Refrigerate. Product dispensed: BELRAPZO New Bag/Syringe/Bottle 10/02/2022 11:50 AM EST 146.3 mg dexAMETHasone 10 mg/NS 50 mL (PYXIS) 10 mg ivpb (DECADRON) 10 mg, INTRAVENOUS, ONCE, 1 dose, On Fri10/02/22 at 1130, Refrigerate. New Bag/Syringe/Bottle 10/02/2022 11:20 AM EST 10 mg Inactive Administered Medications - up to 3 most recent administrations Medication Order MAR Action Action Date Dose Rate Site pegfilgrastim 6 mg injection (NEULASTA) 6 mg, SUBCUTANEOUS, ONCE, 1 dose, On Kavitha 10/03/22 at 1430 Given 10/03/2022 2:17 PM EST 6 mg Arm, Right Inactive Administered Medications - up to 3 most recent administrations Medication Order MAR Action Action Dose Rate Site bendamustine 146.3 mg in NaCl 0.9% 545.852 mL (BELRAPZO) 146.3 mg (70 mg/m2 2.09 m2 Treatment Plan BSA from Recorded weight), INTRAVENOUS, Administer over 30 Minutes, ONCE, 1 dose, On Fri10/30/22 at 1100, exp 1430 10/30/22 (room temp) Hazardous Chemotherapy Drug: Use appropriate PPE. Antineoplastic Irritant. Refrigerate. Product dispensed: BELRAPZO New Bag/Syringe/Bottle 10/30/2022 11:29 AM EST 146.3 mg dexAMETHasone 10 mg/NS 50 mL (PYXIS) 10 mg ivpb (DECADRON) 10 mg, INTRAVENOUS, ONCE, 1 dose, On Fri10/30/22 at 1100, Refrigerate. New Bag/Syringe/Bottle 10/30/2022 11:11 AM EST 10 mg Inactive Administered Medications - up to 3 most recent administrations Medication Order MAR Action Dose Rate Site acetaminophen 650 mg tab(s) (TYLENOL) 650 mg, ORAL, ONCE, 1 dose, On Fri12/30/22 at 1500, Give 30 minutes prior to infusion. No more than 4000 mg of acetaminophen should be given per day (FROM ALL SOURCES), If ordered PRN for pain, patient/guardian may elect to receive this medication for higher pain levels INSTEAD of the opioid, if preferred: N/A Given 12/30/2022 2:45 PM EDT 650 mg diphenhydrAMINE 50 mg (BENADRYL) 50 mg, ORAL, ONCE, 1 dose, On Fri12/30/22 at 1500, Give 30 minutes prior to infusion. Given 12/30/2022 2:45 PM EDT 50 mg riTUXimab - hyaluronidase 1,400 mg injection (RITUXAN HYCELA) 1,400 mg, SUBCUTANEOUS, ONCE, 1 dose, On Fri12/30/22 at 1500, exp 1830 12/30/22 (room temp) Inject subcutaneously in abdomen over 5 minutes. Observe for at least 15 minutes after administration. Given 12/30/2022 2:59 PM EDT 1,400 mg Abdominal Tissue Inactive Administered Medications - up to 3 most recent administrations Medication Order MAR Action Action Date Dose Rate Site acetaminophen 650 mg tab(s) (TYLENOL) 650 mg, ORAL, ONCE, 1 dose, On Fri02/24/23 at 1400, Give 30 minutes prior to infusion. No more than 4000 mg of acetaminophen should be given per day (FROM ALL SOURCES), If ordered PRN for pain, patient/guardian may elect to receive this medication for higher pain levels INSTEAD of the opioid, if preferred: N/A Given 02/24/2023 1:56 PM EDT 650 mg diphenhydrAMINE 50 mg (BENADRYL) 50 mg, ORAL, ONCE, 1 dose, On Fri02/24/23 at 1400, Give 30 minutes prior to infusion. Given 02/24/2023 1:56 PM EDT 50 mg riTUXimab - hyaluronidase 1,400 mg injection (RITUXAN HYCELA) 1,400 mg, SUBCUTANEOUS, ONCE, 1 dose, On Fri02/24/23 at 1400, exp 1400 02/25/23 (room temp) Inject subcutaneously in abdomen over 5 minutes. Observe for at least 15 minutes after administration. Given 02/24/2023 2:10 PM EDT 1,400 mg Abdominal Tissue Active Administered Medications - up to 3 most recent administrations Medication Order MAR Action Action Date Dose Rate Site PHENYLephrine 2.5 % 1 Drop (AK-DILATE, VIK-SYNEPHRINE) 1 Drop, BOTH EYES, DIRECTED, Starting on Fri08/25/23 at 1100, Until Fri08/25/23 at 2259, Administer for dilation PROTECT FROM LIGHT Given 08/25/2023 11:00 AM EST 1 Drop proparacaine 0.5 % 1 Drop (ALCAINE) 1 Drop, BOTH EYES, DIRECTED, Starting on Fri08/25/23 at 1100, Until Fri08/25/23 at 2259, Administer for pneumo tonometry, tonopen tonometry, or pachymetry. In the event of a proparacaine shortage, administer tetracaine 0.5% ophthalmic drops 1 drop in the left eye as directed for pneumo tonometry, tonopen tonometry, or pachymetry Given 08/25/2023 11:00 AM EST 1 Drop tropicamide 1 % 1 Drop (MYDRIACYL) 1 Drop, BOTH EYES, DIRECTED, Starting on Fri08/25/23 at 1100, Until Fri08/25/23 at 2259, Administer for dilation Given 08/25/2023 11:00 AM EST 1 Drop Chief Complaint and Reason for Visit Chief Complaint cholecitytits cholecitytits cholecitytits cholecitytits cholecitytits cholecitytits cholecitytits cholecitytits cholecitytits cholecitytits cholecitytits Reason for Visit Abdominal pain MARY (acute kidney injury) Anticoagulant long-term use Non Hodgkin's lymphoma S/P laparoscopic cholecystectomy Acute cholecystitis Chief Complaint Admit Date COLD SYMPTOMS November 06, 2024 1:40pm WEAKNESS W/FALL AT HOME November 26, 2024 4:07pm Chief Complaint Admit Date COLD SYMPTOMS November 06, 2024 1:40pm WEAKNESS W/FALL AT HOME November 26, 2024 4:07pm WEAKNESS W/FALL AT HOME November 27, 2024 8:02am WEAKNESS W/FALL AT HOME November 27, 2024 11:55am WEAKNESS W/FALL AT HOME November 28, 2024 7:38am WEAKNESS W/FALL AT HOME November 29, 2024 8:07am WEAKNESS W/FALL AT HOME November 30, 2024 11:23am WEAKNESS W/FALL AT HOME December 01, 2024 11:57am Reason for Visit Admit Date Debility November 27, 2024 11:5 5am Weakness November 27, 2024 11:5 5am Chief Complaint Admit Date LAB WORK December 02, 2024 5:0 0am ADMISSION EXAM December 02, 2024 6:1 0pm ADMISSION EXAM December 07, 2024 2:0 2pm LABWORK December 08, 2024 5:0 0am LAB WORK December 15, 2024 5:0 0am NEW CONCERN December 15, 2024 5:0 4pm VERTIGO DIPLOPIA April 01, 2025 5:35 pm POSTERIOR CIRCULATORY STROKE April 01, 2025 5:41pm Reason for Visit Admit Date Vertigo April 01, 2025 5:35 pm Reason for Referral Specialty Diagnoses / Procedures Referred By Contac t Referred To Contact Diagnoses Encounter for prophylactic measures, unspecified Procedures COVID TREATMENT REFERRAL COVID TREATMENT REFERRAL Melba Escudero MD [address] [place] [address] Referral ID Status Reason Start Date Expiration Date Visits Requested Visits Authorized [id number] Pending Review Auto-Generat ed Referral 08/01/2023 1 1 Specialty Diagnoses / Procedures Referred By Contac t Referred To Contact CT IMAGING Diagnoses 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) Procedures CT CHEST W IVCON DIAGNOSTIC COMPUTED TOMOGRAPHY THORAX W/CONTRAST Melba Escudero MD [address] [place] [address] Ct Imaging Referral ID Status Reason Start Date Expiration Date Visits Requested Visits Authorized [id number] Authorized Auto-Generat ed Referral 08/30/2022 09/29/2023 1 1 Specialty Diagnoses / Procedures Referred By Contac t Referred To Contact CT IMAGING Diagnoses 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) Procedures CT CHEST W IVCON DIAGNOSTIC COMPUTED TOMOGRAPHY THORAX W/CONTRAST Melba Escudero MD [address] [place] [address] Ct Imaging [facility] Referral ID Status Reason Start Date Expiration Date V isits Requested Visits Authorized [id number] Closed Auto-Generate d Referral 12/29/2022 10/30/2023 1 1 Specialty Diagnoses / Procedures Referred By Contac t Referred To Contact CT IMAGING Diagnoses 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 [place] 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 [address] Ct Imaging [facility] Referral ID Status Reason Start Date Expiration Date V isits Requested Visits Authorized [id number] Closed Auto-Generate d Referral 12/02/2022 12/25/2023 1 1 Referral ID Status Reason Start Date Expiration Date V isits Requested Visits Authorized [id number] Closed Auto-Generate d Referral 08/30/2022 09/29/2023 1 1 Referral ID Status Reason Start Date Expiration Date V isits Requested Visits Authorized [id number] Closed Auto-Generate d Referral 08/30/2022 09/29/2023 1 1 Specialty Diagnoses / Procedures Referred By Contac t Referred To Contact CT IMAGING Diagnoses 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) Enlarged lymph nodes Abnormal CT of the abdomen Procedures CT ABD/PEL W IVCON CT ABD & PELVIS W/CONTRAST Brendon Coppola APRN.CRISIS COUNSELOR [address] [place] [place] [address] [place] [address] Referral ID Status Reason Start Date Expiration Date Visits Requested Visits Authorized [id number] Authorized Auto-Generat ed Referral 01/08/2024 02/06/2025 1 1 Specialty Diagnoses / Procedures Referred By Contac t Referred To Contact Diagnoses Urinary incontinence without sensory awareness Procedures CONSULT TO GYNECOLOGIC/ONCOLOGY OFFICE/OUTPATIENT [facility] MDM 60 MINUTES Shaila Rincon PUBLIC POLICY PROFESSOR.CRISIS COUNSELOR [address] [place] [address] Referral ID Status Reason Start Date Expiration Date Visits Requested Visits Authorized [id number] Authorized PCP Requested Referral Auto-Generate d Referral 02/19/2024 02/18/2025 1 1 Specialty Diagnoses / Procedures Referred By Contac t Referred To Contact Gastroenterology Diagnoses Diarrhea, unspecified type Procedures CONSULT TO GASTROENTEROLOGY OFFICE/OUTPATIENT NEW HIGH MDM 60 MINUTES Judith Pickard APRN.DEVELOPMENTAL SERVICES WORKER [address] [place] [address] Referral ID Status Reason Start Date Expiration Date Visits Requested Visits Authorized [id number] Authorized PCP Requested Referral 03/04/2024 03/04/2025 1 1 Specialty Diagnoses / Procedures Referred By Contac t Referred To Contact [facility] Diagnoses BPPV (benign paroxysmal positional vertigo), unspecified laterality Procedures CONSULT TO PHYSICAL THERAPY PHYSICAL THERAPY EVALUATION HIGH COMPLEX 45 MINS Judith Pickard PUBLIC POLICY PROFESSOR.CRISIS COUNSELOR [address] [place] [address] [facility] [address] [place] [address] Referral ID Status Reason Start Date Expiration Date Visits Requested Visits Authorized [id number] Authorized PCP Requested Referral Auto-Generate d Referral 04/15/2024 04/08/2025 99 99 Specialty Diagnoses / Procedures Referred By Contac t Referred To Contact CT IMAGING Diagnoses 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) Procedures CT CHEST W IVCON DIAGNOSTIC COMPUTED TOMOGRAPHY THORAX W/CONTRAST Brendon Coppola APRN.CRISIS COUNSELOR [address] [place] [address] [place] [address] Referral ID Status Reason Start Date Expiration Date Visits Requested Visits Authorized [id number] Authorized Auto-Generat ed Referral 04/26/2024 05/26/2025 1 1 Specialty Diagnoses / Procedures Referred By Contac t Referred To Contact CT IMAGING Diagnoses 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) Procedures CT ABD/PEL W IVCON CT ABD & PELVIS W/CONTRAST Brendon Coppola, PUBLIC POLICY PROFESSOR.CRISIS COUNSELOR [address] [place] [address] [place] [address] Referral ID Status Reason Start Date Expiration Date Visits Requested Visits Authorized [id number] Authorized Auto-Generat ed Referral 04/26/2024 05/26/2025 1 1 Specialty Diagnoses / Procedures Referred By Contac t Referred To Contact Urology Diagnoses Urge incontinence Procedures CONSULT TO UROLOGY CONSULT TO UROLOGY OFFICE/OUTPATIENT [facility] 60 MINUTES Judith Pickard PUBLIC POLICY PROFESSOR.CRISIS COUNSELOR [address] [place] [address] Referral ID Status Reason Start Date Expiration Date Visits Requested Visits Authorized [id number] Ref Not Required PCP Requested Referral 06/17/2024 06/17/2025 1 1 Specialty Diagnoses / Procedures Referred By Contac t Referred To Contact Ophthalmology Diagnoses Vision changes Procedures CONSULT TO OPHTHALMOLOGY OFFICE/OUTPATIENT [facility] 60 MINUTES Judith Pickard, PUBLIC POLICY PROFESSOR.CRISIS COUNSELOR [address] [place] [address] Referral ID Status Reason Start Date Expiration Date Visits Requested Visits Authorized [id number] Authorized PCP Requested Referral 4 07/02/2025 1 1 Specialty Diagnoses / Procedures Referred By Contac t Referred To Contact Neurology Diagnoses Disorder of labyrinth, unspecified laterality Procedures CONSULT TO NEUROLOGY OFFICE/OUTPATIENT [facility] 60 MINUTES Judith Pickard, PUBLIC POLICY PROFESSOR.CRISIS COUNSELOR [address] [place] [address] Referral ID Status Reason Start Date Expiration Date Visits Requested Visits Authorized [id number] Authorized PCP Requested Referral 4 07/06/2025 1 1 Specialty Diagnoses / Procedures Referred By Contac t Referred To Contact Diagnoses Intractable chronic migraine with aura and without status migrainosus Missy Hirsch PA-C [address] [place] [address] Referral ID Status Reason Start Date Expiration Date V isits Requested Visits Authorized [id number] Pending Review 07/27/2024 09/25/2024 1 1 Referral ID Status Reason Start Date Expiration Date V isits Requested Visits Authorized [id number] Pending Review 07/27/2024 09/25/2024 1 1 Specialty Diagnoses / Procedures Referred By Contac t Referred To Contact MR IMAGING Diagnoses Worsening headaches Procedures MRI BRAIN WO/W IVCON MRI BRAIN BRAIN STEM W/O W/CONTRAST MATERIAL Missy Hirsch PA-C [address] [place] [address] [place] [address] Referral ID Status Reason Start Date Expiration Date Visits Requested Visits Authorized [id number] Authorized Auto-Generat ed Referral 07/27/2024 08/26/2025 1 1 Referral ID Status Reason Start Date Expiration Date V isits Requested Visits Authorized [id number] Closed Auto-Generate d Referral 07/27/2024 08/26/2025 1 1 Specialty Diagnoses / Procedures Referred By Contac t Referred To Contact CT IMAGING Diagnoses 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) Procedures CT ABD/PEL W IVCON CT ABD & PELVIS W/CONTRAST César Quintero, DO [address] [place] [address] [place] [address] Referral ID Status Reason Start Date Expiration Date Visits Requested Visits Authorized [id number] Authorized Auto-Generat ed Referral 4 10/03/2025 1 1 Specialty Diagnoses / Procedures Referred By Contac t Referred To Contact CT IMAGING Diagnoses 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) Procedures CT CHEST W IVCON DIAGNOSTIC COMPUTED TOMOGRAPHY THORAX W/CONTRAST César Quintero, DO [address] [place] [address] [place] [address] Referral ID Status Reason Start Date Expiration Date Visits Requested Visits Authorized [id number] Authorized Auto-Generat ed Referral 10/03/2025 1 1 Additional Source Comments INFORMATION SOURCE (unrecogn ized section and content) DATE CREATED AUTHOR 03/11/2018 [facility] DATE CREATED AUTHOR AUTHOR'S ORGANIZ ATION 03/13/2018 [facility] DATE CREATED AUTHOR AUTHOR'S ORGANIZ ATION 06/26/2019 [facility] DATE CREATED AUTHOR AUTHOR'S ORGANIZ ATION 05/02/2021 [facility] DATE CREATED AUTHOR AUTHOR'S ORGANIZ ATION 07/15/2021 [facility] DATE CREATED AUTHOR AUTHOR'S ORGANIZ ATION 09/09/2021 [facility] DATE CREATED AUTHOR AUTHOR'S ORGANIZ ATION 09/11/2021 [facility] DATE CREATED AUTHOR AUTHOR'S ORGANIZ ATION 06/21/2022 [facility] DATE CREATED AUTHOR AUTHOR'S ORGANIZ ATION 08/08/2022 [facility] DATE CREATED AUTHOR AUTHOR'S ORGANIZ ATION 01/08/2025 [facility] DATE CREATED AUTHOR AUTHOR'S ORGANIZ ATION 03/24/2025 [facility] Reason for Visit (unrecogniz ed section and content) Reason Comments Non-Chemotherapy Treatment Specialty Diagnoses / Procedures Referred By Contac t Referred To Contact Diagnoses 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) César Quintero, DO [address] [place] [address] [facility] [address] [place] [address] Referral ID Status Reason Start Date Expiration Date V isits Requested Visits Authorized [id number] Authorized 09/03/2024 12/02/2024 [address] Specialty Diagnoses / Procedures Referred By Contac t Referred To Contact CT IMAGING Diagnoses 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) Procedures CT CHEST W IVCON DIAGNOSTIC COMPUTED TOMOGRAPHY THORAX W/CONTRAST Melba Escudero [place] [address] [address] [facility] [place] [address] Referral ID Status Reason Start Date Expiration Date V isits Requested Visits Authorized [id number] Closed Auto-Generate d Referral 12/29/2022 10/30/2023 1 1 Reason Comments Chemotherapy Treatment Specialty Diagnoses / Procedures Referred By Donnie dietrich Referred To Contact Diagnoses 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 Pt recently had neg covid swab. Sweats Other Reason Comments Shortness of Breath pt presents for c/o sob for 6 weeks, states it has worsened over the last week, been tested for covid twice and has been negative, denies chest pain Reason For Visit Description Start Date Postop - subsequent visit Preliminary reason f or visit data, not yet signed by the author as of lower back post Removal Hard molina [id number] with Wound I&D on 08/14/2021 Reason Onset Date Comments Dizziness 02/01/2021 Reason Comments Established Patient Reason Onset Date Comments Refill Request 02/04/2022 Reason Onset Date Comments Refill Request 03/04/2022 Reason Comments Patient Update Reason Comments Edema B/L leg swelling X 3 wks more so tops of legs/things Back Pain Hypertension RF Reason Comments Consult Evaluation and biops y of left axillary lymph node Specialty Diagnoses / Procedures Referred By Donnie dietrich Referred To Contact General Surgery Diagnoses 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) Abnormal mammogram Procedures CONSULT TO GENERAL SURGERY OFFICE/OUTPATIENT [facility] MDM 60-74 MINUTES Melba Escudero MD [address] [place] [address] [facility] [address] [place] [address] Referral ID Status Reason Start Date Expiration Date V isits Requested Visits Authorized [id number] Closed PCP Requested Referral 05/03/2022 05/03/2023 1 1 Reason Comments UTI Frequency, burning, urgency x5 days Reason Comments Patient Question Reason Comments Edema Reason Comments Results Reason Comments Appointment Results Reason Comments Care Coordination Introduction Reason Onset Date Comments Refill Request 05/28/2022 Reason Onset Date Comments Refill Request 05/26/2022 Reason Comments Consult Port placement Reason Onset Date Comments Refill Request 05/31/2022 Reason Comments Consult Reason Comments Pre-op AC instructions Reason Comments Follow Up Check skin around po rt Reason Onset Date Comments Immunizations 06/11/2022 Flu vaccination and Prevnar 20 vaccine Reason Comments Established Patient Reason Onset Date Comments Refill Request 06/27/2022 Reason Comments Erroneous encounter-disregard Reason Comments Patient Update Reason Comments Care Coordination CYCLE 1/DAY 1 POST T REATMENT CALL Reason Comments Care Coordination Toxicity Check Reason Comments Blood Draw (CVAD) Reason Comments Bone Marrow Aspirate/Biopsy Reason Comments Care Coordination Toxicity Check--Weak ness, night sweats, mild diarrhea controlled with Imodium Reason Comments Care Coordination Admitted to [facility] Reason Comments Appointment 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 Validated home cuff. 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 [address] [facility] [address] [place] [address] Referral ID Status Reason Start Date Expiration Date V isits Requested Visits Authorized [id number] Authorized 12/17/2022 03/17/2023 99 99 Reason Comments Ocular Hypertension Follow Up Patient he re as directed for intraocular pressure check Both Eyes. 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 [address] [facility] [address] [place] [address] Reason Comments AVS 12/17/22 Reason Comments Pain (Shoulder Pain) LEFT shoulder blade x 2 weeks Reason Comments Results Shoulder xray result s Reason Comments Follow Up 3 month follow up Reason Onset Date Comments Refill Request 04/17/2023 Reason Comments Opened In Error Reason Comments Physical Therapy Specialty Diagnoses / Procedures Referred By Lilianaac t Referred To Contact [facility] Diagnoses Left arm pain Neck pain Procedures CONSULT TO PHYSICAL THERAPY PHYSICAL THERAPY EVALUATION HIGH COMPLEX 45 MINS Sylvia Lizama MD [address] [place] [id number] [facility] [address] [place] [address] Referral ID Status Reason Start Date Expiration Date Visits Requested Visits Authorized [id number] Authorized PCP Requested Referral Auto-Generate d Referral 04/03/2023 04/02/2024 99 99 Reason Comments Established Patient Reason Comments Follow Up 3 month Reason Comments CPAP Supplies order Referral ID Status Reason Start Date Expiration Date V isits Requested Visits Authorized [id number] Closed Auto-Generate d Referral 08/30/2022 09/29/2023 1 1 Specialty Diagnoses / Procedures [facility] Ref[facility] To Contact CT [facility] Diagnoses 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 [address] [place] [address] Referral ID Status Reason Start Date Expiration Date V isits Requested Visits Authorized [id number] Closed Auto-Generate d Referral 12/02/2022 12/25/2023 1 1 Reason Comments Followup cataract both eyes Primary Open Angle Glaucoma Follow Up Ocular Hypertension Follow Up Reason Comments Primary Open Angle Glaucoma Follow Up Sandeep villaltant here as directed for intraocular pressure check Both Eyes. Reason Comments Cough Chest congestion, SO B x1 week Reason Comments Urinary Frequency Frequency, urgency a nd burning x 1 week Reason Comments Radiology US Specialty Diagnoses / Procedures Referred By Contac t Referred To Contact US IMAGING Diagnoses Neck mass Procedures US HEAD/NECK SOFT TISSUE OTHER US SOFT TISSUE HEAD & NECK REAL TIME IMGE Sathya Roa MD [address] [place] [address] [place] [address] Referral ID Status Reason Start Date Expiration Date V isits Requested Visits Authorized [id number] Closed Auto-Generate d Referral 10/27/2023 11/25/2024 1 1 Specialty Diagnoses / Procedures Referred By Contac t Referred To Contact CT IMAGING Diagnoses 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) Encounter for screening mammogram for malignant neoplasm of breast Procedures CT CHEST W IVCON DIAGNOSTIC COMPUTED TOMOGRAPHY THORAX W/CONTRAST Brendon Coppola, PUBLIC POLICY PROFESSOR.CRISIS COUNSELOR [address] [place] [address] [place] [address] Referral ID Status Reason Start Date Expiration Date V isits Requested Visits Authorized [id number] Closed Auto-Generate d Referral 12/16/2023 01/14/2025 [address] Specialty Diagnoses / Procedures Referred By Contac t Referred To Contact CT IMAGING Diagnoses 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) Encounter for screening mammogram for malignant neoplasm of breast Procedures CT CHEST W IVCON DIAGNOSTIC COMPUTED TOMOGRAPHY THORAX W/CONTRAST Brendon Coppola, PUBLIC POLICY PROFESSOR.CRISIS COUNSELOR [address] [place] [address] [place] [address] Reason Comments 6 Month Exam Reason Comments Dose Clarification Zoloft Reason Comments Anxiety Medication follow up Reason Comments Urinary Incontinence Reason Comments Diarrhea Reason Comments Diarrhea Reason Comments Fatigue Viral Syndrome Reason Comments Acute Visit Cough (productive), shortness of breath, headaches for a couple weeks; no fever; using otc cold pills Reason Onset Date Comments Refill Request 03/19/2024 Reason Onset Date Comments Transition Of Care 03/29/2024 TCM/ OON DC / [facility] 03/26/24 Reason Comments Consult Diarrhea, abd crampi ng Specialty Diagnoses / Procedures Referred By Contac t Referred To Contact Gastroenterology Diagnoses Diarrhea, unspecified type Procedures CONSULT TO GASTROENTEROLOGY OFFICE/OUTPATIENT NEW HIGH MDM 60 MINUTES Judith Pickard PUBLIC POLICY PROFESSOR.CRISIS COUNSELOR [address] [place] [address] Referral ID Status Reason Start Date Expiration Date V isits Requested Visits Authorized [id number] Closed PCP Requested Referral 03/04/2024 03/04/2025 1 1 Reason Comments Transition Of Care Reason Onset Date Comments Refill Request 04/03/2024 Reason Onset Date Comments Transition Of Care 04/05/2024 Tcm follow up Reason Comments Hypotension Reason Comments Weakness Woozy Hypotension Increased clonidine on Friday, now bp is running low Edema feet Reason Onset Date Comments Transition Of Care 04/12/2024 TCM OON follo w up Specialty Diagnoses / Procedures Referred By Contac t Referred To Contact CT IMAGING Diagnoses 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) Enlarged lymph nodes Abnormal CT of the abdomen Procedures CT ABD/PEL W IVCON CT ABD & PELVIS W/CONTRAST Brendon Coppola, PUBLIC POLICY PROFESSOR.CRISIS COUNSELOR [address] [place] [address] [place] [address] Referral ID Status Reason Start Date Expiration Date V isits Requested Visits Authorized [id number] Closed Auto-Generate d Referral 01/08/2024 02/06/2025 1 1 Specialty Diagnoses / Procedures Referred By Contac t Referred To Contact CT IMAGING Diagnoses 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) Enlarged lymph nodes Abnormal CT of the abdomen Procedures CT ABD/PEL W IVCON CT ABD & PELVIS W/CONTRAST Brendon Coppola, PUBLIC POLICY PROFESSOR.CRISIS COUNSELOR [address] [place] [address] [place] [address] Reason Comments Radiology US Specialty Diagnoses / Procedures Referred By Contac t Referred To Contact US IMAGING Diagnoses Soft tissue mass Procedures US EXTREMITY MASS/FLUID COLLECTION LEFT Sylvia Lizama MD [address] [place] [address] [place] [address] Referral ID Status Reason Start Date Expiration Date V isits Requested Visits Authorized [id number] Closed Auto-Generate d Referral 04/02/2024 05/02/2025 1 1 Reason Onset Date Comments Transition Of Care 04/19/2024 TCM followup Reason Comments Vertigo 4 week follow up Reason Comments Urinary Frequency Frequency and burnin g x 1 week Reason Comments Results Urine Cx mixed Reason Comments ER F/U [facility] 05/08/24 Reason Comments Pain Left shoulder/arm Reason Comments Future Appointment Reason Comments Hypertension Reason Comments ER F/U [facility] 07/04/24 Hyperte ntion Reason Comments New Patient Evaluation Disorder labyrint h Specialty Diagnoses / Procedures Referred By Contac t Referred To Contact Neurology Diagnoses Disorder of labyrinth, unspecified laterality Procedures CONSULT TO NEUROLOGY OFFICE/OUTPATIENT NEW [facility]IGH MDM 60 MINUTES Judith Pickard PUBLIC POLICY PROFESSOR.CRISIS COUNSELOR [address] [place] [id number] Referral ID Status Reason Start Date Expiration Date V isits Requested Visits Authorized [id number] Closed PCP Requested Referral 07/13/2024 07/06/2025 1 1 Reason Comments Insurance Authorization Prior authorizat ion [employer] Reason Comments low blood pressure Specialty Diagnoses / Procedures Referred By Contac t Referred To Contact MR IMAGING Diagnoses Worsening headaches Procedures MRI BRAIN WO/W IVCON MRI BRAIN BRAIN STEM W/O W/CONTRAST MATERIAL Missy Hirsch PA-C [address] [place] [address] [place] [address] Referral ID Status Reason Start Date Expiration Date V isits Requested Visits Authorized [id number] Closed Auto-Generate d Referral 07/27/2024 08/26/2025 1 1 Specialty Diagnoses / Procedures Referred By Contac t Referred To Contact CT IMAGING Diagnoses 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) Procedures CT CHEST W IVCON DIAGNOSTIC COMPUTED TOMOGRAPHY THORAX W/CONTRAST Brendon Coppola, BECKY.CRISIS COUNSELOR [address] [place] [address] [place] [address] Referral ID Status Reason Start Date Expiration Date V isits Requested Visits Authorized [id number] Closed Auto-Generate d Referral 04/26/2024 05/26/2025 1 1 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 Reason Comments avs Reason Comments Benefits Investigation Reason Comments burning with urination Burning x 2 days, ear pain, chest congestion, cough and KNIGHT x 2 weeks Reason Onset Date Comments Refill Request 11/02/2024 Reason Onset Date Comments Refill Request 11/08/2024 Reason Comments Cough Specialty Diagnoses / Procedures Referred By Contac t Referred To Contact CT IMAGING Diagnoses 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) Procedures CT ABD/PEL W IVCON CT ABD & PELVIS W/CONTRAST César Quintero, DO [address] [place] [address] Phone: tel: fax: [place] [address] Referral ID Status Reason Start Date Expiration Date V isits Requested Visits Authorized [id number] Closed Auto-Generate d Referral 09/03/2024 10/03/2025 1 1 Reason Onset Date Comments Transition Of Care 12/20/2024 Reason Comments Elevated BP- TCM encounter Reason Comments Hospital F/U Reason Onset Date Comments Results 11/02/2024 Reason Onset Date Comments Director Loan- Other 02/24/2025 Chart review Reason Comments Recheck 2 week BP check Ordered Prescriptions (unrec ognized section and content) Prescription Sig Dispensed Refills Start Date End Da te cephALEXin (KEFLEX) 500 MG capsule Take 1 capsule by mouth 2 times daily for 7 days 14 capsule 0 09/06/2020 09/13/2020 Prescription Sig Dispensed Refills Start Date End Da te albuterol sulfate HFA (PROVENTIL HFA) 108 (90 Base) MCG/ACT inhaler Inhale 2 puffs into the lungs every 6 hours as needed for Wheezing 1 Inhaler 3 09/13/2020 Source Comments (unrecognize d section and content) In the event this informatio n is protected by the Federal Confidentiality of Alcohol and Drug Abuse Patient Records regulations: The Federal rules restrict any use of the information to criminally investigate or prosecute any alcohol or drug abuse patient.[facility] the event this information is protected by the Federal Confidentiality of Alcohol and Drug Abuse Patient Records regulations: The Federal rules restrict any use of the information to criminally investigate or prosecute any alcohol or drug abuse patient.[facility] System[facility] the event this information is protected by the Federal Confidentiality of Alcohol and Drug Abuse Patient Records regulations: The Federal rules restrict any use of the information to criminally investigate or prosecute any alcohol or drug abuse patient.[facility] System[facility] the event this information is protected by the Federal Confidentiality of Alcohol and Drug Abuse Patient Records regulations: The Federal rules restrict any use of the information to criminally investigate or prosecute any alcohol or drug abuse patient.[facility] System[facility] the event this information is protected by the Federal Confidentiality of Alcohol and Drug Abuse Patient Records regulations: The Federal rules restrict any use of the information to criminally investigate or prosecute any alcohol or drug abuse patient.[facility] System[facility] the event this information is protected by the Federal Confidentiality of Alcohol and Drug Abuse Patient Records regulations: The Federal rules restrict any use of the information to criminally investigate or prosecute any alcohol or drug abuse patient.[facility] System[facility] the event this information is protected by the Federal Confidentiality of Alcohol and Drug Abuse Patient Records regulations: The Federal rules restrict any use of the information to criminally investigate or prosecute any alcohol or drug abuse patient.[facility] System[facility] the event this information is protected by the Federal Confidentiality of Alcohol and Drug Abuse Patient Records regulations: The Federal rules restrict any use of the information to criminally investigate or prosecute any alcohol or drug abuse patient.[facility] SystemIn the event this information is protected by the Federal Confidentiality of Alcohol and Drug Abuse Patient Records regulations: The Federal rules restrict any use of the information to criminally investigate or prosecute any alcohol or drug abuse patient.[facility] SystemIn the event this information is protected by the Federal Confidentiality of Alcohol and Drug Abuse Patient Records regulations: The Federal rules restrict any use of the information to criminally investigate or prosecute any alcohol or drug abuse patient.[facility] SystemIn the event this information is protected by the Federal Confidentiality of Alcohol and Drug Abuse Patient Records regulations: The Federal rules restrict any use of the information to criminally investigate or prosecute any alcohol or drug abuse patient.[facility] SystemIn the event this information is protected by the Federal Confidentiality of Alcohol and Drug Abuse Patient Records regulations: The Federal rules restrict any use of the information to criminally investigate or prosecute any alcohol or drug abuse patient.[facility] SystemIn the event this information is protected by the Federal Confidentiality of Alcohol and Drug Abuse Patient Records regulations: The Federal rules restrict any use of the information to criminally investigate or prosecute any alcohol or drug abuse patient.[facility] SystemIn the event this information is protected by the Federal Confidentiality of Alcohol and Drug Abuse Patient Records regulations: The Federal rules restrict any use of the information to criminally investigate or prosecute any alcohol or drug abuse patient.[facility] SystemIn the event this information is protected by the Federal Confidentiality of Alcohol and Drug Abuse Patient Records regulations: The Federal rules restrict any use of the information to criminally investigate or prosecute any alcohol or drug abuse patient.[facility] SystemIn the event this information is protected by the Federal Confidentiality of Alcohol and Drug Abuse Patient Records regulations: The Federal rules restrict any use of the information to criminally investigate or prosecute any alcohol or drug abuse patient.[facility] SystemIn the event this information is protected by the Federal Confidentiality of Alcohol and Drug Abuse Patient Records regulations: The Federal rules restrict any use of the information to criminally investigate or prosecute any alcohol or drug abuse patient.[facility] SystemIn the event this information is protected by the Federal Confidentiality of Alcohol and Drug Abuse Patient Records regulations: The Federal rules restrict any use of the information to criminally investigate or prosecute any alcohol or drug abuse patient.[facility] SystemIn the event this information is protected by the Federal Confidentiality of Alcohol and Drug Abuse Patient Records regulations: The Federal rules restrict any use of the information to criminally investigate or prosecute any alcohol or drug abuse patient.[facility] SystemIn the event this information is protected by the Federal Confidentiality of Alcohol and Drug Abuse Patient Records regulations: The Federal rules restrict any use of the information to criminally investigate or prosecute any alcohol or drug abuse patient.[facility] SystemIn the event this information is protected by the Federal Confidentiality of Alcohol and Drug Abuse Patient Records regulations: The Federal rules restrict any use of the information to criminally investigate or prosecute any alcohol or drug abuse patient.[facility] SystemIn the event this information is protected by the Federal Confidentiality of Alcohol and Drug Abuse Patient Records regulations: The Federal rules restrict any use of the information to criminally investigate or prosecute any alcohol or drug abuse patient.[facility] SystemIn the event this information is protected by the Federal Confidentiality of Alcohol and Drug Abuse Patient Records regulations: The Federal rules restrict any use of the information to criminally investigate or prosecute any alcohol or drug abuse patient.[facility] SystemIn the event this information is protected by the Federal Confidentiality of Alcohol and Drug Abuse Patient Records regulations: The Federal rules restrict any use of the information to criminally investigate or prosecute any alcohol or drug abuse patient.[facility] SystemIn the event this information is protected by the Federal Confidentiality of Alcohol and Drug Abuse Patient Records regulations: The Federal rules restrict any use of the information to criminally investigate or prosecute any alcohol or drug abuse patient.[facility] SystemIn the event this information is protected by the Federal Confidentiality of Alcohol and Drug Abuse Patient Records regulations: The Federal rules restrict any use of the information to criminally investigate or prosecute any alcohol or drug abuse patient.[facility] SystemIn the event this information is protected by the Federal Confidentiality of Alcohol and Drug Abuse Patient Records regulations: The Federal rules restrict any use of the information to criminally investigate or prosecute any alcohol or drug abuse patient.[facility] SystemIn the event this information is protected by the Federal Confidentiality of Alcohol and Drug Abuse Patient Records regulations: The Federal rules restrict any use of the information to criminally investigate or prosecute any alcohol or drug abuse patient.[facility] SystemIn the event this information is protected by the Federal Confidentiality of Alcohol and Drug Abuse Patient Records regulations: The Federal rules restrict any use of the information to criminally investigate or prosecute any alcohol or drug abuse patient.[facility] SystemIn the event this information is protected by the Federal Confidentiality of Alcohol and Drug Abuse Patient Records regulations: The Federal rules restrict any use of the information to criminally investigate or prosecute any alcohol or drug abuse patient.[facility] SystemIn the event this information is protected by the Federal Confidentiality of Alcohol and Drug Abuse Patient Records regulations: The Federal rules restrict any use of the information to criminally investigate or prosecute any alcohol or drug abuse patient.[facility] SystemIn the event this information is protected by the Federal Confidentiality of Alcohol and Drug Abuse Patient Records regulations: The Federal rules restrict any use of the information to criminally investigate or prosecute any alcohol or drug abuse patient.[facility] SystemIn the event this information is protected by the Federal Confidentiality of Alcohol and Drug Abuse Patient Records regulations: The Federal rules restrict any use of the information to criminally investigate or prosecute any alcohol or drug abuse patient.[facility] SystemIn the event this information is protected by the Federal Confidentiality of Alcohol and Drug Abuse Patient Records regulations: The Federal rules restrict any use of the information to criminally investigate or prosecute any alcohol or drug abuse patient.[facility] SystemIn the event this information is protected by the Federal Confidentiality of Alcohol and Drug Abuse Patient Records regulations: The Federal rules restrict any use of the information to criminally investigate or prosecute any alcohol or drug abuse patient.[facility] SystemIn the event this information is protected by the Federal Confidentiality of Alcohol and Drug Abuse Patient Records regulations: The Federal rules restrict any use of the information to criminally investigate or prosecute any alcohol or drug abuse patient.[facility] SystemIn the event this information is protected by the Federal Confidentiality of Alcohol and Drug Abuse Patient Records regulations: The Federal rules restrict any use of the information to criminally investigate or prosecute any alcohol or drug abuse patient.[facility] SystemIn the event this information is protected by the Federal Confidentiality of Alcohol and Drug Abuse Patient Records regulations: The Federal rules restrict any use of the information to criminally investigate or prosecute any alcohol or drug abuse patient.[facility] SystemIn the event this information is protected by the Federal Confidentiality of Alcohol and Drug Abuse Patient Records regulations: The Federal rules restrict any use of the information to criminally investigate or prosecute any alcohol or drug abuse patient.[facility] the event this information is protected by the Federal Confidentiality of Alcohol and Drug Abuse Patient Records regulations: The Federal rules restrict any use of the information to criminally investigate or prosecute any alcohol or drug abuse patient.[facility] SystemIn the event this information is protected by the Federal Confidentiality of Alcohol and Drug Abuse Patient Records regulations: The Federal rules restrict any use of the information to criminally investigate or prosecute any alcohol or drug abuse patient.[facility] SystemIn the event this information is protected by the Federal Confidentiality of Alcohol and Drug Abuse Patient Records regulations: The Federal rules restrict any use of the information to criminally investigate or prosecute any alcohol or drug abuse patient.[facility] SystemIn the event this information is protected by the Federal Confidentiality of Alcohol and Drug Abuse Patient Records regulations: The Federal rules restrict any use of the information to criminally investigate or prosecute any alcohol or drug abuse patient.[facility] SystemIn the event this information is protected by the Federal Confidentiality of Alcohol and Drug Abuse Patient Records regulations: The Federal rules restrict any use of the information to criminally investigate or prosecute any alcohol or drug abuse patient.[facility]In the event this information is protected by the Federal Confidentiality of Alcohol and Drug Abuse Patient Records regulations: The Federal rules restrict any use of the information to criminally investigate or prosecute any alcohol or drug abuse patient.[facility] SystemIn the event this information is protected by the Federal Confidentiality of Alcohol and Drug Abuse Patient Records regulations: The Federal rules restrict any use of the information to criminally investigate or prosecute any alcohol or drug abuse patient.[facility]In the event this information is protected by the Federal Confidentiality of Alcohol and Drug Abuse Patient Records regulations: The Federal rules restrict any use of the information to criminally investigate or prosecute any alcohol or drug abuse patient.[facility]In the event this information is protected by the Federal Confidentiality of Alcohol and Drug Abuse Patient Records regulations: The Federal rules restrict any use of the information to criminally investigate or prosecute any alcohol or drug abuse patient.[facility]In the event this information is protected by the Federal Confidentiality of Alcohol and Drug Abuse Patient Records regulations: The Federal rules restrict any use of the information to criminally investigate or prosecute any alcohol or drug abuse patient.[facility] SystemIn the event this information is protected by the Federal Confidentiality of Alcohol and Drug Abuse Patient Records regulations: The Federal rules restrict any use of the information to criminally investigate or prosecute any alcohol or drug abuse patient.[facility]In the event this information is protected by the Federal Confidentiality of Alcohol and Drug Abuse Patient Records regulations: The Federal rules restrict any use of the information to criminally investigate or prosecute any alcohol or drug abuse patient.[facility]In the event this information is protected by the Federal Confidentiality of Alcohol and Drug Abuse Patient Records regulations: The Federal rules restrict any use of the information to criminally investigate or prosecute any alcohol or drug abuse patient.[facility] SystemIn the event this information is protected by the Federal Confidentiality of Alcohol and Drug Abuse Patient Records regulations: The Federal rules restrict any use of the information to criminally investigate or prosecute any alcohol or drug abuse patient.[facility] SystemIn the event this information is protected by the Federal Confidentiality of Alcohol and Drug Abuse Patient Records regulations: The Federal rules restrict any use of the information to criminally investigate or prosecute any alcohol or drug abuse patient.[facility] SystemIn the event this information is protected by the Federal Confidentiality of Alcohol and Drug Abuse Patient Records regulations: The Federal rules restrict any use of the information to criminally investigate or prosecute any alcohol or drug abuse patient.[facility] SystemIn the event this information is protected by the Federal Confidentiality of Alcohol and Drug Abuse Patient Records regulations: The Federal rules restrict any use of the information to criminally investigate or prosecute any alcohol or drug abuse patient.[facility] SystemIn the event this information is protected by the Federal Confidentiality of Alcohol and Drug Abuse Patient Records regulations: The Federal rules restrict any use of the information to criminally investigate or prosecute any alcohol or drug abuse patient.[facility] SystemIn the event this information is protected by the Federal Confidentiality of Alcohol and Drug Abuse Patient Records regulations: The Federal rules restrict any use of the information to criminally investigate or prosecute any alcohol or drug abuse patient.[facility] SystemIn the event this information is protected by the Federal Confidentiality of Alcohol and Drug Abuse Patient Records regulations: The Federal rules restrict any use of the information to criminally investigate or prosecute any alcohol or drug abuse patient.[facility] SystemIn the event this information is protected by the Federal Confidentiality of Alcohol and Drug Abuse Patient Records regulations: The Federal rules restrict any use of the information to criminally investigate or prosecute any alcohol or drug abuse patient.[facility]In the event this information is protected by the Federal Confidentiality of Alcohol and Drug Abuse Patient Records regulations: The Federal rules restrict any use of the information to criminally investigate or prosecute any alcohol or drug abuse patient.[facility] SystemIn the event this information is protected by the Federal Confidentiality of Alcohol and Drug Abuse Patient Records regulations: The Federal rules restrict any use of the information to criminally investigate or prosecute any alcohol or drug abuse patient.[facility] SystemIn the event this information is protected by the Federal Confidentiality of Alcohol and Drug Abuse Patient Records regulations: The Federal rules restrict any use of the information to criminally investigate or prosecute any alcohol or drug abuse patient.[facility] SystemIn the event this information is protected by the Federal Confidentiality of Alcohol and Drug Abuse Patient Records regulations: The Federal rules restrict any use of the information to criminally investigate or prosecute any alcohol or drug abuse patient.[facility] SystemIn the event this information is protected by the Federal Confidentiality of Alcohol and Drug Abuse Patient Records regulations: The Federal rules restrict any use of the information to criminally investigate or prosecute any alcohol or drug abuse patient.[facility]In the event this information is protected by the Federal Confidentiality of Alcohol and Drug Abuse Patient Records regulations: The Federal rules restrict any use of the information to criminally investigate or prosecute any alcohol or drug abuse patient.[facility]In the event this information is protected by the Federal Confidentiality of Alcohol and Drug Abuse Patient Records regulations: The Federal rules restrict any use of the information to criminally investigate or prosecute any alcohol or drug abuse patient.[facility]In the event this information is protected by the Federal Confidentiality of Alcohol and Drug Abuse Patient Records regulations: The Federal rules restrict any use of the information to criminally investigate or prosecute any alcohol or drug abuse patient.[facility]In the event this information is protected by the Federal Confidentiality of Alcohol and Drug Abuse Patient Records regulations: The Federal rules restrict any use of the information to criminally investigate or prosecute any alcohol or drug abuse patient.[facility]In the event this information is protected by the Federal Confidentiality of Alcohol and Drug Abuse Patient Records regulations: The Federal rules restrict any use of the information to criminally investigate or prosecute any alcohol or drug abuse patient.[facility]In the event this information is protected by the Federal Confidentiality of Alcohol and Drug Abuse Patient Records regulations: The Federal rules restrict any use of the information to criminally investigate or prosecute any alcohol or drug abuse patient.[facility]In the event this information is protected by the Federal Confidentiality of Alcohol and Drug Abuse Patient Records regulations: The Federal rules restrict any use of the information to criminally investigate or prosecute any alcohol or drug abuse patient.[facility] SystemIn the event this information is protected by the Federal Confidentiality of Alcohol and Drug Abuse Patient Records regulations: The Federal rules restrict any use of the information to criminally investigate or prosecute any alcohol or drug abuse patient.[facility]In the event this information is protected by the Federal Confidentiality of Alcohol and Drug Abuse Patient Records regulations: The Federal rules restrict any use of the information to criminally investigate or prosecute any alcohol or drug abuse patient.[facility]In the event this information is protected by the Federal Confidentiality of Alcohol and Drug Abuse Patient Records regulations: The Federal rules restrict any use of the information to criminally investigate or prosecute any alcohol or drug abuse patient.[facility]In the event this information is protected by the Federal Confidentiality of Alcohol and Drug Abuse Patient Records regulations: The Federal rules restrict any use of the information to criminally investigate or prosecute any alcohol or drug abuse patient.[facility]In the event this information is protected by the Federal Confidentiality of Alcohol and Drug Abuse Patient Records regulations: The Federal rules restrict any use of the information to criminally investigate or prosecute any alcohol or drug abuse patient.[facility]In the event this information is protected by the Federal Confidentiality of Alcohol and Drug Abuse Patient Records regulations: The Federal rules restrict any use of the information to criminally investigate or prosecute any alcohol or drug abuse patient.[facility] SystemIn the event this information is protected by the Federal Confidentiality of Alcohol and Drug Abuse Patient Records regulations: The Federal rules restrict any use of the information to criminally investigate or prosecute any alcohol or drug abuse patient.[facility]In the event this information is protected by the Federal Confidentiality of Alcohol and Drug Abuse Patient Records regulations: The Federal rules restrict any use of the information to criminally investigate or prosecute any alcohol or drug abuse patient.[facility]In the event this information is protected by the Federal Confidentiality of Alcohol and Drug Abuse Patient Records regulations: The Federal rules restrict any use of the information to criminally investigate or prosecute any alcohol or drug abuse patient.[facility]In the event this information is protected by the Federal Confidentiality of Alcohol and Drug Abuse Patient Records regulations: The Federal rules restrict any use of the information to criminally investigate or prosecute any alcohol or drug abuse patient.[facility]In the event this information is protected by the Federal Confidentiality of Alcohol and Drug Abuse Patient Records regulations: The Federal rules restrict any use of the information to criminally investigate or prosecute any alcohol or drug abuse patient.[facility]In the event this information is protected by the Federal Confidentiality of Alcohol and Drug Abuse Patient Records regulations: The Federal rules restrict any use of the information to criminally investigate or prosecute any alcohol or drug abuse patient.[facility]In the event this information is protected by the Federal Confidentiality of Alcohol and Drug Abuse Patient Records regulations: The Federal rules restrict any use of the information to criminally investigate or prosecute any alcohol or drug abuse patient.[facility]In the event this information is protected by the Federal Confidentiality of Alcohol and Drug Abuse Patient Records regulations: The Federal rules restrict any use of the information to criminally investigate or prosecute any alcohol or drug abuse patient.[facility]In the event this information is protected by the Federal Confidentiality of Alcohol and Drug Abuse Patient Records regulations: The Federal rules restrict any use of the information to criminally investigate or prosecute any alcohol or drug abuse patient.[facility]In the event this information is protected by the Federal Confidentiality of Alcohol and Drug Abuse Patient Records regulations: The Federal rules restrict any use of the information to criminally investigate or prosecute any alcohol or drug abuse patient.[facility] SystemIn the event this information is protected by the Federal Confidentiality of Alcohol and Drug Abuse Patient Records regulations: The Federal rules restrict any use of the information to criminally investigate or prosecute any alcohol or drug abuse patient.[facility] the event this information is protected by the Federal Confidentiality of Alcohol and Drug Abuse Patient Records regulations: The Federal rules restrict any use of the information to criminally investigate or prosecute any alcohol or drug abuse patient.[facility]In the event this information is protected by the Federal Confidentiality of Alcohol and Drug Abuse Patient Records regulations: The Federal rules restrict any use of the information to criminally investigate or prosecute any alcohol or drug abuse patient.[facility]In the event this information is protected by the Federal Confidentiality of Alcohol and Drug Abuse Patient Records regulations: The Federal rules restrict any use of the information to criminally investigate or prosecute any alcohol or drug abuse patient.[facility]In the event this information is protected by the Federal Confidentiality of Alcohol and Drug Abuse Patient Records regulations: The Federal rules restrict any use of the information to criminally investigate or prosecute any alcohol or drug abuse patient.[facility] SystemIn the event this information is protected by the Federal Confidentiality of Alcohol and Drug Abuse Patient Records regulations: The Federal rules restrict any use of the information to criminally investigate or prosecute any alcohol or drug abuse patient.[facility] SystemIn the event this information is protected by the Federal Confidentiality of Alcohol and Drug Abuse Patient Records regulations: The Federal rules restrict any use of the information to criminally investigate or prosecute any alcohol or drug abuse patient.[facility] SystemIn the event this information is protected by the Federal Confidentiality of Alcohol and Drug Abuse Patient Records regulations: The Federal rules restrict any use of the information to criminally investigate or prosecute any alcohol or drug abuse patient.[facility] SystemIn the event this information is protected by the Federal Confidentiality of Alcohol and Drug Abuse Patient Records regulations: The Federal rules restrict any use of the information to criminally investigate or prosecute any alcohol or drug abuse patient.[facility] SystemIn the event this information is protected by the Federal Confidentiality of Alcohol and Drug Abuse Patient Records regulations: The Federal rules restrict any use of the information to criminally investigate or prosecute any alcohol or drug abuse patient.[facility] SystemIn the event this information is protected by the Federal Confidentiality of Alcohol and Drug Abuse Patient Records regulations: The Federal rules restrict any use of the information to criminally investigate or prosecute any alcohol or drug abuse patient.[facility] SystemIn the event this information is protected by the Federal Confidentiality of Alcohol and Drug Abuse Patient Records regulations: The Federal rules restrict any use of the information to criminally investigate or prosecute any alcohol or drug abuse patient.[facility] SystemIn the event this information is protected by the Federal Confidentiality of Alcohol and Drug Abuse Patient Records regulations: The Federal rules restrict any use of the information to criminally investigate or prosecute any alcohol or drug abuse patient.[facility] SystemIn the event this information is protected by the Federal Confidentiality of Alcohol and Drug Abuse Patient Records regulations: The Federal rules restrict any use of the information to criminally investigate or prosecute any alcohol or drug abuse patient.[facility] SystemIn the event this information is protected by the Federal Confidentiality of Alcohol and Drug Abuse Patient Records regulations: The Federal rules restrict any use of the information to criminally investigate or prosecute any alcohol or drug abuse patient.[facility] SystemIn the event this information is protected by the Federal Confidentiality of Alcohol and Drug Abuse Patient Records regulations: The Federal rules restrict any use of the information to criminally investigate or prosecute any alcohol or drug abuse patient.[facility] SystemIn the event this information is protected by the Federal Confidentiality of Alcohol and Drug Abuse Patient Records regulations: The Federal rules restrict any use of the information to criminally investigate or prosecute any alcohol or drug abuse patient.[facility] SystemIn the event this information is protected by the Federal Confidentiality of Alcohol and Drug Abuse Patient Records regulations: The Federal rules restrict any use of the information to criminally investigate or prosecute any alcohol or drug abuse patient.[facility] SystemIn the event this information is protected by the Federal Confidentiality of Alcohol and Drug Abuse Patient Records regulations: The Federal rules restrict any use of the information to criminally investigate or prosecute any alcohol or drug abuse patient.[facility] SystemIn the event this information is protected by the Federal Confidentiality of Alcohol and Drug Abuse Patient Records regulations: The Federal rules restrict any use of the information to criminally investigate or prosecute any alcohol or drug abuse patient.[facility] SystemIn the event this information is protected by the Federal Confidentiality of Alcohol and Drug Abuse Patient Records regulations: The Federal rules restrict any use of the information to criminally investigate or prosecute any alcohol or drug abuse patient.[facility] SystemIn the event this information is protected by the Federal Confidentiality of Alcohol and Drug Abuse Patient Records regulations: The Federal rules restrict any use of the information to criminally investigate or prosecute any alcohol or drug abuse patient.[facility] SystemIn the event this information is protected by the Federal Confidentiality of Alcohol and Drug Abuse Patient Records regulations: The Federal rules restrict any use of the information to criminally investigate or prosecute any alcohol or drug abuse patient.[facility] SystemIn the event this information is protected by the Federal Confidentiality of Alcohol and Drug Abuse Patient Records regulations: The Federal rules restrict any use of the information to criminally investigate or prosecute any alcohol or drug abuse patient.[facility] SystemIn the event this information is protected by the Federal Confidentiality of Alcohol and Drug Abuse Patient Records regulations: The Federal rules restrict any use of the information to criminally investigate or prosecute any alcohol or drug abuse patient.[facility] SystemIn the event this information is protected by the Federal Confidentiality of Alcohol and Drug Abuse Patient Records regulations: The Federal rules restrict any use of the information to criminally investigate or prosecute any alcohol or drug abuse patient.[facility] SystemIn the event this information is protected by the Federal Confidentiality of Alcohol and Drug Abuse Patient Records regulations: The Federal rules restrict any use of the information to criminally investigate or prosecute any alcohol or drug abuse patient.[facility] SystemIn the event this information is protected by the Federal Confidentiality of Alcohol and Drug Abuse Patient Records regulations: The Federal rules restrict any use of the information to criminally investigate or prosecute any alcohol or drug abuse patient.[facility] SystemIn the event this information is protected by the Federal Confidentiality of Alcohol and Drug Abuse Patient Records regulations: The Federal rules restrict any use of the information to criminally investigate or prosecute any alcohol or drug abuse patient.[facility] SystemIn the event this information is protected by the Federal Confidentiality of Alcohol and Drug Abuse Patient Records regulations: The Federal rules restrict any use of the information to criminally investigate or prosecute any alcohol or drug abuse patient.[facility] SystemIn the event this information is protected by the Federal Confidentiality of Alcohol and Drug Abuse Patient Records regulations: The Federal rules restrict any use of the information to criminally investigate or prosecute any alcohol or drug abuse patient.[facility] SystemIn the event this information is protected by the Federal Confidentiality of Alcohol and Drug Abuse Patient Records regulations: The Federal rules restrict any use of the information to criminally investigate or prosecute any alcohol or drug abuse patient.[facility] SystemIn the event this information is protected by the Federal Confidentiality of Alcohol and Drug Abuse Patient Records regulations: The Federal rules restrict any use of the information to criminally investigate or prosecute any alcohol or drug abuse patient.[facility] SystemIn the event this information is protected by the Federal Confidentiality of Alcohol and Drug Abuse Patient Records regulations: The Federal rules restrict any use of the information to criminally investigate or prosecute any alcohol or drug abuse patient.[facility] SystemIn the event this information is protected by the Federal Confidentiality of Alcohol and Drug Abuse Patient Records regulations: The Federal rules restrict any use of the information to criminally investigate or prosecute any alcohol or drug abuse patient.[facility] SystemIn the event this information is protected by the Federal Confidentiality of Alcohol and Drug Abuse Patient Records regulations: The Federal rules restrict any use of the information to criminally investigate or prosecute any alcohol or drug abuse patient.[facility] SystemIn the event this information is protected by the Federal Confidentiality of Alcohol and Drug Abuse Patient Records regulations: The Federal rules restrict any use of the information to criminally investigate or prosecute any alcohol or drug abuse patient.[facility] SystemIn the event this information is protected by the Federal Confidentiality of Alcohol and Drug Abuse Patient Records regulations: The Federal rules restrict any use of the information to criminally investigate or prosecute any alcohol or drug abuse patient.[facility] SystemIn the event this information is protected by the Federal Confidentiality of Alcohol and Drug Abuse Patient Records regulations: The Federal rules restrict any use of the information to criminally investigate or prosecute any alcohol or drug abuse patient.[facility] SystemIn the event this information is protected by the Federal Confidentiality of Alcohol and Drug Abuse Patient Records regulations: The Federal rules restrict any use of the information to criminally investigate or prosecute any alcohol or drug abuse patient.[facility] SystemIn the event this information is protected by the Federal Confidentiality of Alcohol and Drug Abuse Patient Records regulations: The Federal rules restrict any use of the information to criminally investigate or prosecute any alcohol or drug abuse patient.[facility] SystemIn the event this information is protected by the Federal Confidentiality of Alcohol and Drug Abuse Patient Records regulations: The Federal rules restrict any use of the information to criminally investigate or prosecute any alcohol or drug abuse patient.[facility] SystemIn the event this information is protected by the Federal Confidentiality of Alcohol and Drug Abuse Patient Records regulations: The Federal rules restrict any use of the information to criminally investigate or prosecute any alcohol or drug abuse patient.[facility] SystemIn the event this information is protected by the Federal Confidentiality of Alcohol and Drug Abuse Patient Records regulations: The Federal rules restrict any use of the information to criminally investigate or prosecute any alcohol or drug abuse patient.[facility] SystemIn the event this information is protected by the Federal Confidentiality of Alcohol and Drug Abuse Patient Records regulations: The Federal rules restrict any use of the information to criminally investigate or prosecute any alcohol or drug abuse patient.[facility] SystemIn the event this information is protected by the Federal Confidentiality of Alcohol and Drug Abuse Patient Records regulations: The Federal rules restrict any use of the information to criminally investigate or prosecute any alcohol or drug abuse patient.[facility] SystemIn the event this information is protected by the Federal Confidentiality of Alcohol and Drug Abuse Patient Records regulations: The Federal rules restrict any use of the information to criminally investigate or prosecute any alcohol or drug abuse patient.[facility] SystemIn the event this information is protected by the Federal Confidentiality of Alcohol and Drug Abuse Patient Records regulations: The Federal rules restrict any use of the information to criminally investigate or prosecute any alcohol or drug abuse patient.[facility] SystemIn the event this information is protected by the Federal Confidentiality of Alcohol and Drug Abuse Patient Records regulations: The Federal rules restrict any use of the information to criminally investigate or prosecute any alcohol or drug abuse patient.[facility] SystemIn the event this information is protected by the Federal Confidentiality of Alcohol and Drug Abuse Patient Records regulations: The Federal rules restrict any use of the information to criminally investigate or prosecute any alcohol or drug abuse patient.[facility] SystemIn the event this information is protected by the Federal Confidentiality of Alcohol and Drug Abuse Patient Records regulations: The Federal rules restrict any use of the information to criminally investigate or prosecute any alcohol or drug abuse patient.[facility]In the event this information is protected by the Federal Confidentiality of Alcohol and Drug Abuse Patient Records regulations: The Federal rules restrict any use of the information to criminally investigate or prosecute any alcohol or drug abuse patient.[facility] SystemIn the event this information is protected by the Federal Confidentiality of Alcohol and Drug Abuse Patient Records regulations: The Federal rules restrict any use of the information to criminally investigate or prosecute any alcohol or drug abuse patient.[facility]In the event this information is protected by the Federal Confidentiality of Alcohol and Drug Abuse Patient Records regulations: The Federal rules restrict any use of the information to criminally investigate or prosecute any alcohol or drug abuse patient.[facility] SystemIn the event this information is protected by the Federal Confidentiality of Alcohol and Drug Abuse Patient Records regulations: The Federal rules restrict any use of the information to criminally investigate or prosecute any alcohol or drug abuse patient.[facility] SystemIn the event this information is protected by the Federal Confidentiality of Alcohol and Drug Abuse Patient Records regulations: The Federal rules restrict any use of the information to criminally investigate or prosecute any alcohol or drug abuse patient.[facility]In the event this information is protected by the Federal Confidentiality of Alcohol and Drug Abuse Patient Records regulations: The Federal rules restrict any use of the information to criminally investigate or prosecute any alcohol or drug abuse patient.[facility] SystemIn the event this information is protected by the Federal Confidentiality of Alcohol and Drug Abuse Patient Records regulations: The Federal rules restrict any use of the information to criminally investigate or prosecute any alcohol or drug abuse patient.[facility]In the event this information is protected by the Federal Confidentiality of Alcohol and Drug Abuse Patient Records regulations: The Federal rules restrict any use of the information to criminally investigate or prosecute any alcohol or drug abuse patient.[facility]In the event this information is protected by the Federal Confidentiality of Alcohol and Drug Abuse Patient Records regulations: The Federal rules restrict any use of the information to criminally investigate or prosecute any alcohol or drug abuse patient.[facility]In the event this information is protected by the Federal Confidentiality of Alcohol and Drug Abuse Patient Records regulations: The Federal rules restrict any use of the information to criminally investigate or prosecute any alcohol or drug abuse patient.[facility]In the event this information is protected by the Federal Confidentiality of Alcohol and Drug Abuse Patient Records regulations: The Federal rules restrict any use of the information to criminally investigate or prosecute any alcohol or drug abuse patient.[facility]In the event this information is protected by the Federal Confidentiality of Alcohol and Drug Abuse Patient Records regulations: The Federal rules restrict any use of the information to criminally investigate or prosecute any alcohol or drug abuse patient.[facility]In the event this information is protected by the Federal Confidentiality of Alcohol and Drug Abuse Patient Records regulations: The Federal rules restrict any use of the information to criminally investigate or prosecute any alcohol or drug abuse patient.[facility]In the event this information is protected by the Federal Confidentiality of Alcohol and Drug Abuse Patient Records regulations: The Federal rules restrict any use of the information to criminally investigate or prosecute any alcohol or drug abuse patient.[facility]In the event this information is protected by the Federal Confidentiality of Alcohol and Drug Abuse Patient Records regulations: The Federal rules restrict any use of the information to criminally investigate or prosecute any alcohol or drug abuse patient.[facility]In the event this information is protected by the Federal Confidentiality of Alcohol and Drug Abuse Patient Records regulations: The Federal rules restrict any use of the information to criminally investigate or prosecute any alcohol or drug abuse patient.[facility] SystemIn the event this information is protected by the Federal Confidentiality of Alcohol and Drug Abuse Patient Records regulations: The Federal rules restrict any use of the information to criminally investigate or prosecute any alcohol or drug abuse patient.[facility] SystemIn the event this information is protected by the Federal Confidentiality of Alcohol and Drug Abuse Patient Records regulations: The Federal rules restrict any use of the information to criminally investigate or prosecute any alcohol or drug abuse patient.[facility] SystemIn the event this information is protected by the Federal Confidentiality of Alcohol and Drug Abuse Patient Records regulations: The Federal rules restrict any use of the information to criminally investigate or prosecute any alcohol or drug abuse patient.[facility] SystemIn the event this information is protected by the Federal Confidentiality of Alcohol and Drug Abuse Patient Records regulations: The Federal rules restrict any use of the information to criminally investigate or prosecute any alcohol or drug abuse patient.[facility] SystemIn the event this information is protected by the Federal Confidentiality of Alcohol and Drug Abuse Patient Records regulations: The Federal rules restrict any use of the information to criminally investigate or prosecute any alcohol or drug abuse patient.[facility] SystemIn the event this information is protected by the Federal Confidentiality of Alcohol and Drug Abuse Patient Records regulations: The Federal rules restrict any use of the information to criminally investigate or prosecute any alcohol or drug abuse patient.[facility]In the event this information is protected by the Federal Confidentiality of Alcohol and Drug Abuse Patient Records regulations: The Federal rules restrict any use of the information to criminally investigate or prosecute any alcohol or drug abuse patient.[facility] SystemIn the event this information is protected by the Federal Confidentiality of Alcohol and Drug Abuse Patient Records regulations: The Federal rules restrict any use of the information to criminally investigate or prosecute any alcohol or drug abuse patient.[facility] SystemIn the event this information is protected by the Federal Confidentiality of Alcohol and Drug Abuse Patient Records regulations: The Federal rules restrict any use of the information to criminally investigate or prosecute any alcohol or drug abuse patient.[facility] SystemIn the event this information is protected by the Federal Confidentiality of Alcohol and Drug Abuse Patient Records regulations: The Federal rules restrict any use of the information to criminally investigate or prosecute any alcohol or drug abuse patient.[facility] SystemIn the event this information is protected by the Federal Confidentiality of Alcohol and Drug Abuse Patient Records regulations: The Federal rules restrict any use of the information to criminally investigate or prosecute any alcohol or drug abuse patient.[facility] SystemIn the event this information is protected by the Federal Confidentiality of Alcohol and Drug Abuse Patient Records regulations: The Federal rules restrict any use of the information to criminally investigate or prosecute any alcohol or drug abuse patient.[facility]In the event this information is protected by the Federal Confidentiality of Alcohol and Drug Abuse Patient Records regulations: The Federal rules restrict any use of the information to criminally investigate or prosecute any alcohol or drug abuse patient.[facility]In the event this information is protected by the Federal Confidentiality of Alcohol and Drug Abuse Patient Records regulations: The Federal rules restrict any use of the information to criminally investigate or prosecute any alcohol or drug abuse patient.[facility] SystemIn the event this information is protected by the Federal Confidentiality of Alcohol and Drug Abuse Patient Records regulations: The Federal rules restrict any use of the information to criminally investigate or prosecute any alcohol or drug abuse patient.[facility] SystemIn the event this information is protected by the Federal Confidentiality of Alcohol and Drug Abuse Patient Records regulations: The Federal rules restrict any use of the information to criminally investigate or prosecute any alcohol or drug abuse patient.[facility] SystemIn the event this information is protected by the Federal Confidentiality of Alcohol and Drug Abuse Patient Records regulations: The Federal rules restrict any use of the information to criminally investigate or prosecute any alcohol or drug abuse patient.[facility] SystemIn the event this information is protected by the Federal Confidentiality of Alcohol and Drug Abuse Patient Records regulations: The Federal rules restrict any use of the information to criminally investigate or prosecute any alcohol or drug abuse patient.[facility] SystemIn the event this information is protected by the Federal Confidentiality of Alcohol and Drug Abuse Patient Records regulations: The Federal rules restrict any use of the information to criminally investigate or prosecute any alcohol or drug abuse patient.[facility]In the event this information is protected by the Federal Confidentiality of Alcohol and Drug Abuse Patient Records regulations: The Federal rules restrict any use of the information to criminally investigate or prosecute any alcohol or drug abuse patient.[facility]In the event this information is protected by the Federal Confidentiality of Alcohol and Drug Abuse Patient Records regulations: The Federal rules restrict any use of the information to criminally investigate or prosecute any alcohol or drug abuse patient.[facility]In the event this information is protected by the Federal Confidentiality of Alcohol and Drug Abuse Patient Records regulations: The Federal rules restrict any use of the information to criminally investigate or prosecute any alcohol or drug abuse patient.[facility] SystemIn the event this information is protected by the Federal Confidentiality of Alcohol and Drug Abuse Patient Records regulations: The Federal rules restrict any use of the information to criminally investigate or prosecute any alcohol or drug abuse patient.[facility] SystemIn the event this information is protected by the Federal Confidentiality of Alcohol and Drug Abuse Patient Records regulations: The Federal rules restrict any use of the information to criminally investigate or prosecute any alcohol or drug abuse patient.[facility] SystemIn the event this information is protected by the Federal Confidentiality of Alcohol and Drug Abuse Patient Records regulations: The Federal rules restrict any use of the information to criminally investigate or prosecute any alcohol or drug abuse patient.[facility] SystemIn the event this information is protected by the Federal Confidentiality of Alcohol and Drug Abuse Patient Records regulations: The Federal rules restrict any use of the information to criminally investigate or prosecute any alcohol or drug abuse patient.[facility] SystemIn the event this information is protected by the Federal Confidentiality of Alcohol and Drug Abuse Patient Records regulations: The Federal rules restrict any use of the information to criminally investigate or prosecute any alcohol or drug abuse patient.[facility] SystemIn the event this information is protected by the Federal Confidentiality of Alcohol and Drug Abuse Patient Records regulations: The Federal rules restrict any use of the information to criminally investigate or prosecute any alcohol or drug abuse patient.[facility] SystemIn the event this information is protected by the Federal Confidentiality of Alcohol and Drug Abuse Patient Records regulations: The Federal rules restrict any use of the information to criminally investigate or prosecute any alcohol or drug abuse patient.[facility] SystemIn the event this information is protected by the Federal Confidentiality of Alcohol and Drug Abuse Patient Records regulations: The Federal rules restrict any use of the information to criminally investigate or prosecute any alcohol or drug abuse patient.[facility] SystemIn the event this information is protected by the Federal Confidentiality of Alcohol and Drug Abuse Patient Records regulations: The Federal rules restrict any use of the information to criminally investigate or prosecute any alcohol or drug abuse patient.[facility] SystemIn the event this information is protected by the Federal Confidentiality of Alcohol and Drug Abuse Patient Records regulations: The Federal rules restrict any use of the information to criminally investigate or prosecute any alcohol or drug abuse patient.[facility] SystemIn the event this information is protected by the Federal Confidentiality of Alcohol and Drug Abuse Patient Records regulations: The Federal rules restrict any use of the information to criminally investigate or prosecute any alcohol or drug abuse patient.[facility] SystemIn the event this information is protected by the Federal Confidentiality of Alcohol and Drug Abuse Patient Records regulations: The Federal rules restrict any use of the information to criminally investigate or prosecute any alcohol or drug abuse patient.[facility] ClinicIn the event this information is protected by the Federal Confidentiality of Alcohol and Drug Abuse Patient Records regulations: The Federal rules restrict any use of the information to criminally investigate or prosecute any alcohol or drug abuse patient.[facility] SystemIn the event this information is protected by the Federal Confidentiality of Alcohol and Drug Abuse Patient Records regulations: The Federal rules restrict any use of the information to criminally investigate or prosecute any alcohol or drug abuse patient.[facility] SystemIn the event this information is protected by the Federal Confidentiality of Alcohol and Drug Abuse Patient Records regulations: The Federal rules restrict any use of the information to criminally investigate or prosecute any alcohol or drug abuse patient.[facility] SystemIn the event this information is protected by the Federal Confidentiality of Alcohol and Drug Abuse Patient Records regulations: The Federal rules restrict any use of the information to criminally investigate or prosecute any alcohol or drug abuse patient.[facility] SystemIn the event this information is protected by the Federal Confidentiality of Alcohol and Drug Abuse Patient Records regulations: The Federal rules restrict any use of the information to criminally investigate or prosecute any alcohol or drug abuse patient.[facility] SystemIn the event this information is protected by the Federal Confidentiality of Alcohol and Drug Abuse Patient Records regulations: The Federal rules restrict any use of the information to criminally investigate or prosecute any alcohol or drug abuse patient.[facility] SystemIn the event this information is protected by the Federal Confidentiality of Alcohol and Drug Abuse Patient Records regulations: The Federal rules restrict any use of the information to criminally investigate or prosecute any alcohol or drug abuse patient.[facility] SystemIn the event this information is protected by the Federal Confidentiality of Alcohol and Drug Abuse Patient Records regulations: The Federal rules restrict any use of the information to criminally investigate or prosecute any alcohol or drug abuse patient.[facility] SystemIn the event this information is protected by the Federal Confidentiality of Alcohol and Drug Abuse Patient Records regulations: The Federal rules restrict any use of the information to criminally investigate or prosecute any alcohol or drug abuse patient.[facility] SystemIn the event this information is protected by the Federal Confidentiality of Alcohol and Drug Abuse Patient Records regulations: The Federal rules restrict any use of the information to criminally investigate or prosecute any alcohol or drug abuse patient.[facility] SystemIn the event this information is protected by the Federal Confidentiality of Alcohol and Drug Abuse Patient Records regulations: The Federal rules restrict any use of the information to criminally investigate or prosecute any alcohol or drug abuse patient.[facility] SystemIn the event this information is protected by the Federal Confidentiality of Alcohol and Drug Abuse Patient Records regulations: The Federal rules restrict any use of the information to criminally investigate or prosecute any alcohol or drug abuse patient.[facility] SystemIn the event this information is protected by the Federal Confidentiality of Alcohol and Drug Abuse Patient Records regulations: The Federal rules restrict any use of the information to criminally investigate or prosecute any alcohol or drug abuse patient.[facility] SystemIn the event this information is protected by the Federal Confidentiality of Alcohol and Drug Abuse Patient Records regulations: The Federal rules restrict any use of the information to criminally investigate or prosecute any alcohol or drug abuse patient.[facility] SystemIn the event this information is protected by the Federal Confidentiality of Alcohol and Drug Abuse Patient Records regulations: The Federal rules restrict any use of the information to criminally investigate or prosecute any alcohol or drug abuse patient.[facility] SystemIn the event this information is protected by the Federal Confidentiality of Alcohol and Drug Abuse Patient Records regulations: The Federal rules restrict any use of the information to criminally investigate or prosecute any alcohol or drug abuse patient.[facility] SystemIn the event this information is protected by the Federal Confidentiality of Alcohol and Drug Abuse Patient Records regulations: The Federal rules restrict any use of the information to criminally investigate or prosecute any alcohol or drug abuse patient.[facility] SystemIn the event this information is protected by the Federal Confidentiality of Alcohol and Drug Abuse Patient Records regulations: The Federal rules restrict any use of the information to criminally investigate or prosecute any alcohol or drug abuse patient.[facility] Care Teams (unrecognized sec tion and content) Bladder Trimmer Relationship Specialty Start Date End Date Sylvia Lizama MD [address] [place], [place] [address] PCP - General Family Practice 12/02/18 [place] [id number] [place] [address] Referring Physical Medicine and Rehab 06/15/21 Bladder Trimmer Relationship Specialty Start Date End Date Sylvai Lizama MD [address] [place], [place] [address] PCP - General Family Practice 12/02/18 [place] [address] [place] [address] Referring Physical Medicine and Rehab 06/15/21 Bladder Trimmer Relationship Specialty Start Date End Date Sylvia Lizama MD [address] [place] [address] PCP - General Family Practice 12/02/18 Rene Do, DO [id number] [place] [address] Referring Physical Medicine and Rehab 06/15/21 Bladder Trimmer Relationship Specialty Start Date End Date Sylvia Lizama MD [address] [place] [address] PCP - General Family Practice 12/02/18 Rene Do, DO [address] [place] [address] Referring Physical Medicine and Rehab 06/15/21 Bladder Trimmer Relationship Specialty Start Date End Date Sylvia Lizama MD [address] [place] [address] PCP - General Family Practice 12/02/18 Rene Do, DO [address] [place] [address] Referring Physical Medicine and Rehab 06/15/21 Bladder Trimmer Relationship Specialty Start Date End Date Sylvia Lizama MD [address] [place] [address] PCP - General Family Practice 12/02/18 Rene Do, DO [id number] [place] [address] Referring Physical Medicine and Rehab 06/15/21 Bladder Trimmer Relationship Specialty Start Date End Date Sylvia Lizama MD [address] [place] [address] PCP - General Family Practice 12/02/18 HiRene, [id number] [place] [address] Referring Physical Medicine and Rehab 06/15/21 Bladder Trimmer Relationship Specialty Start Date End Date Sylvia Lizama MD [address] [place] [address] PCP - General Family Practice 12/02/18 Hi Rene, [id number] [place] [address] Referring Physical Medicine and Rehab 06/15/21 Melba Escudero MD [address] [place] [address] Hematology/Oncology 05/03/22 Bladder Trimmer Relationship Specialty Start Date End Date Sylvia Lizama MD [address] [place] [address] PCP - General Family Practice 12/02/18 Hi Rene, [id number] [place] [address] Referring Physical Medicine and Rehab 06/15/21 Melba Escudero MD [address] [place] [address] Hematology/Oncology 05/03/22 Bladder Trimmer Relationship Specialty Start Date End Date Sylvia Lizama MD [address] [place] [address] PCP - General Family Practice 12/02/18 Hi Rene, [id number] [place] [address] Referring Physical Medicine and Rehab 06/15/21 Melba Escudero MD [address] [place] [address] Hematology/Oncology 05/03/22 Bladder Trimmer Relationship Specialty Start Date End Date Sylvia Lizama MD [address] [place] [address] PCP - General Family Practice 12/02/18 Hi Rene, [address] [address] Referring Physical Medicine and Rehab 06/15/21 Melba Escudero MD [address] [place] [address] Hematology/Oncology 05/03/22 Bladder Trimmer Relationship Specialty Start Date End Date Sylvai Lizama MD [address] [place] [address] PCP - General Family Practice 12/02/18 Hi Rene, [address] [address] Referring Physical Medicine and Rehab 06/15/21 Melba Escudero MD [address] [place] [address] Hematology/Oncology 05/03/22 Bladder Trimmer Relationship Specialty Start Date End Date Sylvia Lizama MD [address] [place] [address] PCP - General Family Practice 12/02/18 Rene Do, [address] [address] Referring Physical Medicine and Rehab 06/15/21 Melba Escudero MD [address] [place] [address] Hematology/Oncology 05/03/22 Bladder Trimmer Relationship Specialty Start Date End Date Sylvia Lizama MD [address] [place] [address] PCP - General Family Practice 12/02/18 [facility] [address] [address] Referring Physical Medicine and Rehab 06/15/21 Melba Escudero MD [address] [address] Hematology/Oncology 05/03/22 Chinyere Shea, FRANCESCO [address] [place] [address] Specialty 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 Hematology/Oncology 05/22/22 Bladder Trimmer Relationship Specialty Start Date End Date Sylvia Lizama MD [address] [facility] [place] [address] PCP - General Family Practice 12/02/[address] [address] Referring Physical Medicine and Rehab 06/15/21 Melba Escudero MD [address] [place] [address] Hematology/Oncology 05/03/22 Chinyere Shea, FRANCESCO [address] [place] [address] Specialty 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 Hematology/Oncology 05/22/22 Bladder Trimmer Relationship Specialty Start Date End Date Sylvia Lizama MD [address] [place] [address] PCP - General Family Practice 12/02/18 Trevor Doan, [address] [address] Referring Physical Medicine and Rehab 06/15/21 Melba Escudero MD [address] [place] [address] Hematology/Oncology 05/03/22 Chinyere Shea, FRANCESCO [address] [place] [address] Specialty 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 Hematology/Oncology 05/22/22 Bladder Trimmer Relationship Specialty Start Date End Date Sylvia Lizama MD [address] [place] [address] PCP - General Family Practice 12/02/18 Rene Do, [address] [address] Referring Physical Medicine and Rehab 06/15/21 Melba Escudero MD [address] [place] [address] Hematology/Oncology 05/03/22 Chinyere Shea, FRANCESCO [address] [place] [address] Specialty 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 Hematology/Oncology 05/22/22 Bladder Trimmer Relationship Specialty Start Date End Date Sylvia Lizama MD [address] [place] [address] PCP - General Family Practice 12/02/18 Hi Rene, [address] [address] Referring Physical Medicine and Rehab 06/15/21 Melba Escudero MD [address] [place] [address] Hematology/Oncology 05/03/22 Chinyere Shea, RN [address] [place] [address] Specialty 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 Hematology/Oncology 05/22/22 Bladder Trimmer Relationship Specialty Start Date End Date Sylvia Lizama MD [address] [place] [address] PCP - General Family Practice 12/02/18 Rene Do, [address] [address] Referring Physical Medicine and Rehab 06/15/21 Mebla Escudero MD [address] [address] Hematology/Oncology 05/03/22 Chinyere Shea RN [address] [place] [address] Specialty 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 Hematology/Oncology 05/22/22 Bladder Trimmer Relationship Specialty Start Date End Date Sylvia Lizama MD [address] [place] [address] PCP - General Family Practice 12/02/18 Rene Do, [address] [address] Referring Physical Medicine and Rehab 06/15/21 Melba Escudero MD [address] [place] [address] Hematology/Oncology 05/03/22 Chinyere Shea RN [address] [place] [address] Specialty 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 Hematology/Oncology 05/22/22 Bladder Trimmer Relationship Specialty Start Date End Date Sylvia Lizama MD [address] [facility] [place] [address] PCP - General Family Practice 12/02/18 Rene Do DO [address] [place] [address] Referring Physical Medicine and Rehab 06/15/21 Melba Escudero MD [address] [place] [address] Hematology/Oncology 05/03/22 Chinyere Shea, FRANCESCO [address] [place] [address] Specialty 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 Hematology/Oncology 05/22/22 Bladder Trimmer Relationship Specialty Start Date End Date Sylvia Lizama MD [address] [facility] [place] [address] PCP - General Family Medicine 12/02/18 Rene Do, [address] [address] Referring Physical Medicine and Rehab 06/15/21 Melba Escudero MD [address] [place] [address] Hematology/Oncology 05/03/22 Chinyere Shea, FRANCESCO [address] [place] [address] Specialty 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 Hematology/Oncology 05/22/22 Bladder Trimmer Relationship Specialty Start Date End Date Sylvia Lizama MD [address] [place] [address] PCP - General Family Medicine 12/02/18 Rene Do, [address] [address] Referring Physical Medicine and Rehab 06/15/21 Melba Escudero MD [address] [address] Hematology/Oncology 05/03/22 Chinyere Shea, RN [address] [place] [address] Specialty 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 Hematology/Oncology 05/22/22 Bladder Trimmer Relationship Specialty Start Date End Date Sylvia Lizama MD [address] [place] [address] PCP - General Family Medicine 12/02/18 Rene Do, [address] [address] Referring Physical Medicine and Rehab 06/15/21 Melba Escudero MD [address] [address] Hematology/Oncology 05/03/22 Chinyere Shea, RN [address] [place] [address] Specialty 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 Hematology/Oncology 05/22/22 Bladder Trimmer Relationship Specialty Start Date End Date Sylvia Lizama MD [address] [place] [address] PCP - General Family Medicine 12/02/18 Rene Do, [address] [address] Referring Physical Medicine and Rehab 06/15/21 Melba Escudero MD [address] [place] [address] Hematology/Oncology 05/03/22 Chinyere Shea, FRANCESCO [address] [place] [address] Specialty 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 Hematology/Oncology 05/22/22 Bladder Trimmer Relationship Specialty Start Date End Date Sylvia Lizama MD [address] [place] [address] PCP - General Family Medicine 12/02/18 Rene Do, [address] [address] Referring Physical Medicine and Rehab 06/15/21 Melba Escudero MD [address] [place] [address] Hematology/Oncology 05/03/22 Chinyere Shea RN [address] [place] [address] Specialty 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 Hematology/Oncology 05/22/22 Bladder Trimmer Relationship Specialty Start Date End Date Sylvia Lizama MD [address] [facility] [place] [address] PCP - General Family Medicine 12/02/18 Rene Do, [address] [address] Referring Physical Medicine and Rehab 06/15/21 Melba Escudero MD [address] [place] [address] Hematology/Oncology 05/03/22 Chinyere Shea RN [address] [place] [address] Specialty 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 Hematology/Oncology 05/22/22 Bladder Trimmer Relationship Specialty Start Date End Date Sylvia Lizama MD [address] [place] [address] PCP - General Family Medicine 12/02/18 [place] [id number] [place] [address] Referring Physical Medicine and Rehab 06/15/21 Melba Escudero MD [address] [place] [address] Hematology/Oncology 05/03/22 Chinyere Shea, FRANCESCO [address] [place] [address] Specialty 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 Hematology/Oncology 05/22/22 Enid Rod LISW [address] [place] [address] Foreman/Pile Driving [employer]rection Hematology/Oncology 07/15/22 Bladder Trimmer Relationship Specialty Start Date End Date Sylvia Lizama MD [address] [place] [address] PCP - General Family Medicine 12/02/18 R[place] [id number] [place] [address] Referring Physical Medicine and Rehab 06/15/21 Melba Escudero MD [address] [place] [address] Hematology/Oncology 05/03/22 Chinyere Shea, FRANCESCO [address] [place] [address] Specialty 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 Hematology/Oncology 05/22/22 Enid Rod LISW [address] [place] [address] Foreman/Pile Driving [employer]rection Hematology/Oncology 07/15/22 Bladder Trimmer Relationship Specialty Start Date End Date Sylvia Lizama MD [address] [place] [address] PCP - General Family Medicine 12/02/18 [place] [address] [place] [address] Referring Physical Medicine and Rehab 06/15/21 Melba Escudero MD [address] [place] [address] Hematology/Oncology 05/03/22 Chinyere Shea RN [address] [place] [address] Specialty 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 Hematology/Oncology 05/22/22 Enid Rod LISW [address] [place] [address] Foreman/Pile Driving [employer]rection Hematology/Oncology 07/15/22 Bladder Trimmer Relationship Specialty Start Date End Date Sylvia Lizama MD [address] [place] [address] PCP - General Family Medicine 12/02/18 [place] [address] [place] [address] Referring Physical Medicine and Rehab 06/15/21 Melba Escudero MD [address] [place] [address] Hematology/Oncology 05/03/22 Chinyere Shea RN [address] [facility] [place] [address] Specialty 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 Hematology/Oncology 05/22/22 Enid Rod LISW [address] [place] [address] Foreman/Pile Driving [employer] Erection Hematology/Oncology 07/15/22 Bladder Trimmer Relationship Specialty Start Date End Date Sylvia Lizama MD [address] [place] [address] PCP - General Family Medicine 12/02/18 [place] [id number] [place] [address] Referring Physical Medicine and Rehab 06/15/21 Melba Escudero MD [address] [place] [address] Hematology/Oncology 05/03/22 Chinyere Shea RN [address] [place] [address] Specialty 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 Hematology/Oncology 05/22/22 Enid Rod LISW [address] [place] [address] Foreman/Pile Driving [employer] Erection Hematology/Oncology 07/15/22 Bladder Trimmer Relationship Specialty Start Date End Date Sylvia Lizama MD [address] [facility] [place] [address] PCP - General Family Medicine 12/02/18 Rene Do DO [address] [place] [address] Referring Physical Medicine and Rehab 06/15/21 Melba Escudero MD [address] [place] [address] Hematology/Oncology 05/03/22 Chinyere Shea RN [address] [facility] [place] [address] Specialty 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 Hematology/Oncology 05/22/22 Enid Rod LISW [address] [place] [address] Foreman/Pile Driving [employer] Erection Hematology/Oncology 07/15/22 Bladder Trimmer Relationship Specialty Start Date End Date Sylvia Lizama MD [address] [facility] [place] [address] PCP - General Family Medicine 12/02/18 Rene Do DO [address] [place] [address] Referring Physical Medicine and Rehab 06/15/21 Melba sEcudero MD [address] [place] [address] Hematology/Oncology 05/03/22 Chinyere Shea RN [address] [place] [address] Specialty 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 Hematology/Oncology 05/22/22 Enid Rod LISW [address] [place] [address] Foreman/Pile Driving [employer] Erection Hematology/Oncology 07/15/22 Bladder Trimmer Relationship Specialty Start Date End Date Sylvia Lizama MD [address] [place] [address] PCP - General Family Medicine 12/02/18 Rene Do DO [address] [place] [address] Referring Physical Medicine and Rehab 06/15/21 Melba Escudero MD [address] [place] [address] Hematology/Oncology 05/03/22 Chinyere Shea RN [address] [address] Specialty 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 Hematology/Oncology 05/22/22 Enid Rod LISW [address] [place] [address] Foreman/Pile Driving [employer] Erection Hematology/Oncology 07/15/22 Bladder Trimmer Relationship Specialty Start Date End Date Sylvia Lizama MD [address] [place] [address] PCP - General Family Medicine 12/02/18 Rene Do DO [address] [place] [address] Referring Physical Medicine and Rehab 06/15/21 Melba Escudero MD [address] [place] [address] Hematology/Oncology 05/03/22 Chinyere Shea RN [address] [place] [address] Specialty 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 Hematology/Oncology 05/22/22 Enid Rod LISW [address] [place] [address] Foreman/Pile Driving [employer] Erection Hematology/Oncology 07/15/22 Bladder Trimmer Relationship Specialty Start Date End Date Sylvia Lizama MD [address] [place] [address] PCP - General Family Medicine 12/02/[address] [address] Referring Physical Medicine and Rehab 06/15/21 Melba Escudero MD [address] [facility] [place] [address] Hematology/Oncology 05/03/22 Chinyere Shea RN [address] [place] [address] Specialty 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 Hematology/Oncology 05/22/22 Enid Rod LISW [address] [place] [address] Foreman/Pile Driving [employer] Erection Hematology/Oncology 07/15/22 Bladder Trimmer Relationship Specialty Start Date End Date Sylvia Lizama MD [address] [place] [address] PCP - General Family Medicine 12/02/18 Rene Do, [address] [address] Referring Physical Medicine and Rehab 06/15/21 Melba Escudero MD [address] [place] [address] Hematology/Oncology 05/03/22 Chinyere Shea RN [address] [place] [address] Specialty 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 Hematology/Oncology 05/22/22 Enid Rod LISW [address] [place] [address] Foreman/Pile Driving [employer] Erection Hematology/Oncology 07/15/22 Bladder Trimmer Relationship Specialty Start Date End Date Syliva Lizama MD [address] [place] [address] PCP - General Family Medicine 12/02/18 Rene Do [address] [address] Referring Physical Medicine and Rehab 06/15/21 Melba Escudero MD [address] [place] [address] Hematology/Oncology 05/03/22 Chinyere Shea RN [address] [place] [address] Specialty 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 Hematology/Oncology 05/22/22 Enid Rod LISW [address] [place] [address] Foreman/Pile Driving [employer] Erection Hematology/Oncology 07/15/22 Bladder Trimmer Relationship Specialty Start Date End Date Sylvia Lizama MD [address] [place] [address] PCP - General Family Medicine 12/02/18 Rene Do, [address] [address] Referring Physical Medicine and Rehab 06/15/21 Melba Escudero MD [address] [place] [facility] [place] [address] Hematology/Oncology 05/03/22 Chinyere Shea RN [address] [place] [address] Specialty 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 Hematology/Oncology 05/22/22 Enid Rod LISW [address] [place] [address] Foreman/Pile Driving [employer] Erection Hematology/Oncology 07/15/22 Bladder Trimmer Relationship Specialty Start Date End Date Sylvia Lizama MD [address] [place] [address] PCP - General Family Medicine 12/02/18 Rene Do DO [address] [place] [address]151 Referring Physical Medicine and Rehab 06/15/21 Melba Escudero MD [address] [place] [address] Hematology/Oncology 05/03/22 Chinyere Shea RN [address] [place] [address] Specialty 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 Hematology/Oncology 05/22/22 Enid Rod LISW [address] [place] [address] Foreman/Pile Driving [employer] Erection Hematology/Oncology 07/15/22 Bladder Trimmer Relationship Specialty Start Date End Date Sylvia Lizama MD [address] [place] [address] PCP - General Family Medicine 12/02/18 Rene Do DO [address] [place] [address] 89531 Referring Physical Medicine and Rehab 06/15/21 Melba Escudero MD [address] [place] [address] Hematology/Oncology 05/03/22 Chinyere Shea RN [address] [place] [address] Specialty 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 Hematology/Oncology 05/22/22 Enid Rod LISW [address] [place] [address] Foreman/Pile Driving [employer] Erection Hematology/Oncology 07/15/22 Bladder Trimmer Relationship Specialty Start Date End Date Sylvia Lizama MD [address] [place] [address] PCP - General Family Medicine 12/02/18 Rene Do DO [address] [place] [address] 70391 Referring Physical Medicine and Rehab 06/15/21 Melba Escudero MD [address] [place] [address] Hematology/Oncology 05/03/22 Chinyere Shea RN [address] [place] [address] Specialty 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 Hematology/Oncology 05/22/22 Enid Rod LISW [address] [place] [address] Foreman/Pile Driving [employer] Erection Hematology/Oncology 07/15/22 Bladder Trimmer Relationship Specialty Start Date End Date Sylvia Lizama MD [address] [place] [address] PCP - General Family Medicine 12/02/18 Rene Do DO [address] [place] [address] 23160 Referring Physical Medicine and Rehab 06/15/21 Melba Escudero MD [address] [place] [address] Hematology/Oncology 05/03/22 Chinyere Shea RN [address] [place] [address] Specialty 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 Hematology/Oncology 05/22/22 Enid Rod LISW [address] [place] [address] Foreman/Pile Driving [employer] Erection Hematology/Oncology 07/15/22 Bladder Trimmer Relationship Specialty Start Date End Date Sylvia Lizama MD [address] [place] [address] PCP - General Family Medicine 12/02/18 Rene Do, DO [address] [place] [address]859 Referring Physical Medicine and Rehab 06/15/21 Melba Escudero MD [address] [facility] [place] [address] Hematology/Oncology 05/03/22 Chinyere Shea RN [address] [facility] [place] [address] Specialty 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 Hematology/Oncology 05/22/22 Enid Rod LISW [address] [place] [address] Foreman/Pile Driving [employer] Erection Hematology/Oncology 07/15/22 Bladder Trimmer Relationship Specialty Start Date End Date Sylvia Lizama MD [address] [place] [address] PCP - General Family Medicine 12/02/18 Rene Do, [id number] [place] [address] 17907 Referring Physical Medicine and Rehab 06/15/21 Melba Escudero MD [address] [place] [address] Hematology/Oncology 05/03/22 Chinyere Shea RN [address] [place] [address] Specialty 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 Hematology/Oncology 05/22/22 Enid Rod LISW [address] [place] [address] Foreman/Pile Driving And Erection Hematology/Oncology 07/15/22 Bladder Trimmer Relationship Specialty Start Date End Date Sylvia Lizama MD [address] [facility] [place] [address] PCP - General Family Medicine 12/02/18 Rene Do, [id number] [place] [address] Referring Physical Medicine and Rehab 06/15/21 Melba Escudero MD [address] [place] [address] Hematology/Oncology 05/03/22 Chinyere Shea RN [address] [place] [address] Specialty 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 Hematology/Oncology 05/22/22 Enid Rod LISW [address] [place] [address] Foreman/Pile Driving [employer] Erection Hematology/Oncology 07/15/22 Bladder Trimmer Relationship Specialty Start Date End Date Sylvia Lizama MD [address] [facility] [place] [address] PCP - General Family Medicine 12/02/18 Rene Do, [place] [id number] [place] [address] 16482 Referring Physical Medicine and Rehab 06/15/21 Melab Escudero MD [address] [facility] [place] [address] Hematology/Oncology 05/03/22 Chinyere Shea RN [address] [facility] [place] [address] Specialty 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 Hematology/Oncology 05/22/22 Enid Rod LISW [address] [place] [address] Foreman/Pile Driving [employer] Erection Hematology/Oncology 07/15/22 Anca Almonte MD [address] [place] [address] Oncology 12/19/22 Bladder Trimmer Relationship Specialty Start Date End Date Sylvia Lizama MD [address] [place] [address] PCP - General Family Medicine 12/02/18 Rene Do [address] [address] Referring Physical Medicine and Rehab 06/15/21 Melba Escudero MD [address] [place] [address] Hematology/Oncology 05/03/22 Chinyere Shea, FRANCESCO [address] [place] [address] Specialty 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 Hematology/Oncology 05/22/22 Enid Rod LISW [address] [place] [address] Foreman/Pile Driving And Erection Hematology/Oncology 07/15/22 Anca Almonte MD [address] [place] [address] Oncology 12/19/22 Bladder Trimmer Relationship Specialty Start Date End Date Sylvia Lizama MD [address] [place] [address] PCP - General Family Medicine 12/02/18 Rene Do, [address] [place] [address] 42008 Referring Physical Medicine and Rehab 06/15/21 Melba Escudero MD [address] [place] [address] Hematology/Oncology 05/03/22 Chinyere Shea RN [address] [place] [address] Specialty 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 Hematology/Oncology 05/22/22 Enid Rod LISW [address] [place] [address] Foreman/Pile Driving [employer] Erection Hematology/Oncology 07/15/22 Anca Almonte MD [address] [place] [address] Oncology 12/19/22 Bladder Trimmer Relationship Specialty Start Date End Date Sylvia Lizama MD [address] [place] [address] PCP - General Family Medicine 12/02/18 Rene Do DO [address] [place] [address] 59996 Referring Physical Medicine and Rehab 06/15/21 Melba Escudero MD [address] [address] Hematology/Oncology 05/03/22 Chinyere Shea RN [address] [place] [address] Specialty 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 Hematology/Oncology 05/22/22 Enid Rod LISW [address] [place] [address] Foreman/Pile Driving [employer] Erection Hematology/Oncology 07/15/22 Anca Almonte MD [address] [place] [address] Oncology 12/19/22 Bladder Trimmer Relationship Specialty Start Date End Date Sylvia Lizama MD [address] [place] [address] PCP - General Family Medicine 12/02/18 Rene Do DO [address] [place] [address] 14898 Referring Physical Medicine and Rehab 06/15/21 Melba Escudero MD [address] [place] [address] Hematology/Oncology 05/03/22 Chinyere Shea RN [address] [place] [address] Specialty 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 Hematology/Oncology 05/22/22 Enid Rod LISW [address] [place] [address] Foreman/Pile Driving And Erection Hematology/Oncology 07/15/22 Anca Almonte MD [address] [place] [address] Oncology 12/19/22 Bladder Trimmer Relationship Specialty Start Date End Date Sylvia Lizama MD [address] [place] [address] PCP - General Family Medicine 12/02/18 Rene Do DO [address] [place] [address]019 Referring Physical Medicine and Rehab 06/15/21 Melba Escudero MD [address] [place] [address] Hematology/Oncology 05/03/22 Chinyere Shea, FRANCESCO [address] [place] [address] Specialty 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 Hematology/Oncology 05/22/22 Enid Rod LISW [address] [place] [address] Foreman/Pile Driving And Erection Hematology/Oncology 07/15/22 Anca Almonte MD [address] [place] [address] Oncology 12/19/22 Bladder Trimmer Relationship Specialty Start Date End Date Sylvia Lizama MD [address] [place] [address] PCP - General Family Medicine 12/02/18 Rene Do DO [address] [place] [address] 11876 Referring Physical Medicine and Rehab 06/15/21 Melba Escudero MD [address] [place] [address] Hematology/Oncology 05/03/22 Chinyere Shea RN [address] [place] [address] Specialty 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 Hematology/Oncology 05/22/22 Enid Rod LISW [address] [place] [address] Foreman/Pile Driving And Erection Hematology/Oncology 07/15/22 Anca Almonte MD [address] [place] [address] Oncology 12/19/22 Bladder Trimmer Relationship Specialty Start Date End Date Sylvia Lizama MD [address] [place] [address] PCP - General Family Medicine 12/02/18 Rene Do DO [address] [place] [address] 66180 Referring Physical Medicine and Rehab 06/15/21 Melba Escudero MD [address] [place] [address] 61671 Hematology/Oncology 05/03/22 Chinyere Shea RN [address] [address] Specialty 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 Hematology/Oncology 05/22/22 Enid Rod LISW [address] [place] [address] Foreman/Pile Driving And Erection Hematology/Oncology 07/15/22 Anca Almonte MD [address] [place] [address] Oncology 12/19/22 Bladder Trimmer Relationship Specialty Start Date End Date Sylvia Lizama MD [address] [place] [address] PCP - General Family Medicine 12/02/18 Rene Do DO [address] [place] [address] 49578 Referring Physical Medicine and Rehab 06/15/21 Melba Escudero MD [address] [place] [address] 71605 Hematology/Oncology 05/03/22 Chinyere Shea RN [address] [place] [address] Specialty 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 Hematology/Oncology 05/22/22 Enid Rod LISW [address] [place] [address] Foreman/Pile Driving And Erection Hematology/Oncology 07/15/22 Anca Almonte MD [address] [place] [address] Oncology 12/19/22 Bladder Trimmer Relationship Specialty Start Date End Date Sylvia Lizama MD [address] [place] [address] PCP - General Family Medicine 12/02/18 Rene Do DO [address] [place] [address] 87305 Referring Physical Medicine and Rehab 06/15/21 Melba Escudero MD [address] [place] [address] 6[address]73 Hematology/Oncology 05/03/22 Chinyere Shea RN [address] [place] [address] Specialty 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 Hematology/Oncology 05/22/22 Enid Rod LISW [address] [place] [address] Foreman/Pile Driving And Erection Hematology/Oncology 07/15/22 Anca Almonte MD [address] [place] [address] Oncology 12/19/22 Bladder Trimmer Relationship Specialty Start Date End Date Sylvia Lizama MD [facility] [place] [address] PCP - General Family Medicine 12/02/18 Rene Do DO [address] [place] [address] 22608 Referring Physical Medicine and Rehab 06/15/21 Melba Escudero MD [address] [place] [address] 15127 Hematology/Oncology 05/03/22 Chinyere Shea RN [address] [place] [address] Specialty 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 Hematology/Oncology 05/22/22 Enid Rod LISW [address] [place] [address] Foreman/Pile Driving And Erection Hematology/Oncology 07/15/22 Anca Almonte MD [address] [place] [address] Oncology 12/19/22 Bladder Trimmer Relationship Specialty Start Date End Date Sylvia Lizama MD [address] [place], [place] [address] PCP - General Family Medicine 12/02/18 Rene Do DO [address] [place] [address] 05133 Referring Physical Medicine and Rehab 06/15/21 Melba Escudero MD [address] [place] [address] 00716 Hematology/Oncology 05/03/22 Chinyere Shea RN [address] [place] [place] [address] Specialty 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 Hematology/Oncology 05/22/22 Enid Rod LISW [address] [place] [address] Foreman/Pile Driving And Erection Hematology/Oncology 07/15/22 Anca Almonte MD [address] [place] [address] Oncology 12/19/22 Bladder Trimmer Relationship Specialty Start Date End Date Sylvia Lizama MD [address] [facility] [place] [address] PCP - General Family Medicine 12/02/18 Rene Do DO [address] [place] [address] 20897 Referring Physical Medicine and Rehab 06/15/21 Melba Escudero MD [address] [place] [address] 35869 Hematology/Oncology 05/03/22 Chinyere Shea RN [address] [place] [address] Specialty 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 Hematology/Oncology 05/22/22 Enid Rod LISW [address] [place] [address] Foreman/Pile Driving And Erection Hematology/Oncology 07/15/22 Anca Almonte MD [address] [place], [place] [address] Oncology 12/19/22 Bladder Trimmer Relationship Specialty Start Date End Date Sylvia Lizama MD [address] [place] [address] [place] [id number] PCP - General Family Medicine 12/02/18 Rene Do DO [address] [place] [address] 76643 Referring Physical Medicine and Rehab 06/15/21 Melba Escudero MD [address] [place] [address] 83694 Hematology/Oncology 05/03/22 Chinyere Shea RN [address] [place] [address] Specialty 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 Hematology/Oncology 05/22/22 Enid Rod LISW [address] [place] [address] Foreman/Pile Driving And Erection Hematology/Oncology 07/15/22 Anca Almonte MD [address] [place], [place] [address] Oncology 12/19/22 Bladder Trimmer Relationship Specialty Start Date End Date Sylvia Lizama MD [address] [place] [address] PCP - General Family Medicine 12/02/18 R[place] [id number] [place] [address] 67860 Referring Physical Medicine and Rehab 06/15/21 Melba Escudero MD [address] [place] [address] 71356 Hematology/Oncology 05/03/22 Chinyere Shea, RN [address] [facility] [place] [address] Specialty 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 Hematology/Oncology 05/22/22 Eind Rod LISW [address] [place] [address] Foreman/Pile Driving And Erection Hematology/Oncology 07/15/22 Anca Almonte MD [address] [place] [address] Oncology 12/19/22 Bladder Trimmer Relationship Specialty Start Date End Date Sylvia Lizama MD [address] [place] [address] PCP - General Family Medicine 12/02/18 Rene Do DO [address] [place] [address] 09498 Referring Physical Medicine and Rehab 06/15/21 Melba Escudero MD [id number] [place] [address] 38420 Hematology/Oncology 05/03/22 Chinyere Shea RN [address] [place] [address] Specialty 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 Hematology/Oncology 05/22/22 Enid Rod LISW [address] [place] [address] Foreman/Pile Driving And Erection Hematology/Oncology 07/15/22 Anca Almonte MD [address] [place] [address] Oncology 12/19/22 Bladder Trimmer Relationship Specialty Start Date End Date Sylvia Lizama MD [address] [place] [address] PCP - General Family Medicine 12/02/18 R[place] [id number] [place] [address] 46026 Referring Physical Medicine and Rehab 06/15/21 Melba Escudero MD [address] [place] [address] 66144 Hematology/Oncology 05/03/22 Chinyere Shea RN [address] [place] [address] Specialty 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 Hematology/Oncology 05/22/22 Enid Rod LISW [address] [place] [address] Foreman/Pile Driving And Erection Hematology/Oncology 07/15/22 Anca Almonte MD [address] [place] [address] Oncology 12/19/22 Bladder Trimmer Relationship Specialty Start Date End Date Sylvia Lizama MD [address] [place] [address] PCP - General Family Medicine 12/02/18 R[place] Do DO [id number] [place] [address] 18414 Referring Physical Medicine and Rehab 06/15/21 Melba Escudero MD [address] [place] [address] 40956 Hematology/Oncology 05/03/22 Chinyere Shea RN [address] [place] [place] [address] Specialty 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 Hematology/Oncology 05/22/22 Enid Rod LISW [address] [place] [address] Foreman/Pile Driving And Erection Hematology/Oncology 07/15/22 Anca Almonte MD [address] [place] [address] Oncology 12/19/22 Bladder Trimmer Relationship Specialty Start Date End Date Sylvia Lizama MD [facility] [place] [address] PCP - General Family Medicine 12/02/18 R[place] [id number] [place] [address] 52035 Referring Physical Medicine and Rehab 06/15/21 Melba Escudero MD [id number] [place] [address] 76668 Hematology/Oncology 05/03/22 Chinyere Shea RN [address] [place], [place] [address] Specialty 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 Hematology/Oncology 05/22/22 Enid Rod LISW [address] [place] [address] Foreman/Pile Driving And Erection Hematology/Oncology 07/15/22 Anca Almonte MD [address] [place] [address] Oncology 12/19/22 Bladder Trimmer Relationship Specialty Start Date End Date Sylvia Lizama MD [address] [place] [address] PCP - General Family Medicine 12/02/18 Rene Do DO [address] [place] [address] 46145 Referring Physical Medicine and Rehab 06/15/21 Melba Escudero MD [address] [place] [address] 83032 Hematology/Oncology 05/03/22 Chinyere Shea, FRANCESCO [address] [place] [address] Specialty 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 Hematology/Oncology 05/22/22 Enid Rod LISW [address] [place] [address] Foreman/Pile Driving And Erection Hematology/Oncology 07/15/22 Anca Almonte MD [address] [place] [address] Oncology 12/19/22 Bladder Trimmer Relationship Specialty Start Date End Date Sylvia Lizama MD [address] [place] [address] PCP - General Family Medicine 12/02/18 [place] [address] [place] [address] Referring Physical Medicine and Rehab 06/15/21 [place] [address] [place] [address] Hematology/Oncology 05/03/22 Chinyere Shea RN [address] [place] [address] Specialty 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 Hematology/Oncology 05/22/22 Enid Rod LISW [address] [place] [address] Foreman/Pile Driving And Erection Hematology/Oncology 07/15/22 Anca Almonte MD [address] [place] [address] Oncology 12/19/22 Bladder Trimmer Relationship Specialty Start Date End Date Sylvia Lizama MD [address] [place] [address] PCP - General Family Medicine 12/02/18 [place] [address] [place] [address] Referring Physical Medicine and Rehab 06/15/21 Chinyere Shea RN [address] [place] [address] Specialty 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 Hematology/Oncology 05/22/22 Enid Rod LISW [address] [place] [address] Foreman/Pile Driving And Erection Hematology/Oncology 07/15/22 Prince Fang MD [address] [place] [address] Hematology/Oncology 06/18/23 Bladder Trimmer Relationship Specialty Start Date End Date Sylvia Lizama MD [address] [facility] [place], [place] [address] PCP - General Family Medicine 12/02/18 Rene Do DO [address] [place] [address] 83755 Referring Physical Medicine and Rehab 06/15/21 Chinyere Shea RN [address] [facility] [address] Specialty 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 Hematology/Oncology 05/22/22 Enid Rod LISW [address] [place] [address] Foreman/Pile Driving And Erection Hematology/Oncology 07/15/22 Prince Fang MD [address] [facility] [place] [address] Hematology/Oncology 06/18/23 Bladder Trimmer Relationship Specialty Start Date End Date Sylvia Lizama MD [address] [facility] [address] PCP - General Family Medicine 12/02/18 Rene Do DO [address] [place] [address] 45312 Referring Physical Medicine and Rehab 06/15/21 Chinyere Shea RN [address] [facility] [place] [address] Specialty 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 Hematology/Oncology 05/22/22 Enid Rod LISW [address] [place] [address] Foreman/Pile Driving And Erection Hematology/Oncology 07/15/22 Prince Fang MD [address] [place] [address] Hematology/Oncology 06/18/23 Bladder Trimmer Relationship Specialty Start Date End Date Sylvia Lizama MD [address] [facility] [address] PCP - General Family Medicine 12/02/18 Rene Do DO [address] [place] [address] 31333 Referring Physical Medicine and Rehab 06/15/21 Chinyere Shea, RN [address] [place] [address] Specialty 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 Hematology/Oncology 05/22/22 Enid Rod LISW [address] [place] [address] Foreman/Pile Driving And Erection Hematology/Oncology 07/15/22 Prince Fang MD [address] [place] [address] Hematology/Oncology 06/18/23 Bladder Trimmer Relationship Specialty Start Date End Date Sylvia Lizama MD [address] [facility] [place] [address] PCP - General Family Medicine 12/02/18 R[place] [address] [place] [address] 85248 Referring Physical Medicine and Rehab 06/15/21 Melba Escudero MD [address] [place] [address] 03238 Hematology/Oncology 05/03/22 06/17/23 Chinyere Shea RN [address] [place] [address] Specialty 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 Hematology/Oncology 05/22/22 Enid Rod LISW [address] [place] [address] Foreman/Pile Driving And Erection Hematology/Oncology 07/15/22 Bladder Trimmer Relationship Specialty Start Date End Date Sylvia Lizama MD [address] [place] [address] PCP - General Family Medicine 12/02/18 R[place] [id number] [place] [address] 27640 Referring Physical Medicine and Rehab 06/15/21 Melba Escudero MD [address] [place] [address] 87943 Hematology/Oncology 05/03/22 06/17/23 Chinyere Shea RN [address] [place] [address] Specialty 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 Hematology/Oncology 05/22/22 Enid Rod LISW [address] [place] [address] Foreman/Pile Driving And Erection Hematology/Oncology 07/15/22 Anca Almonte MD [address] [place] [address] Oncology 12/19/22 06/17/23 Bladder Trimmer Relationship Specialty Start Date End Date Sylvia Lizama MD [address] [place] [address] PCP - General Family Medicine 12/02/18 R[place] Do DO [id number] [place] [address] 12943 Referring Physical Medicine and Rehab 06/15/21 Melba Escudero MD [address] [place] [address] 92877 Hematology/Oncology 05/03/22 06/17/23 Chinyere Shea RN [address] [place] [address] Specialty 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 Hematology/Oncology 05/22/22 Enid Rod LISW [address] [place] [address] Foreman/Pile Driving And Erection Hematology/Oncology 07/15/22 Bladder Trimmer Relationship Specialty Start Date End Date Sylvia Lizama MD [address] [place] [address] PCP - General Family Medicine 12/02/18 Rene Do DO [address] [place] [address] 47604 Referring Physical Medicine and Rehab 06/15/21 Melba [place]ero MD [id number] [place] [address] 13096 Hematology/Oncology 05/03/22 06/17/23 Chinyere Shea RN [address] [place] [address] Specialty 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 Hematology/Oncology 05/22/22 Enid Rod LISW [address] [place] [address] Foreman/Pile Driving [employer] Erection Hematology/Oncology 07/15/22 Bladder Trimmer Relationship Specialty Start Date End Date Sylvia Lizama MD [address] [place], [place] [address] PCP - General Family Medicine 12/02/18 [place] [address] [place] [address] Referring Physical Medicine and Rehab 06/15/21 [place] [address] [place] [address] Hematology/Oncology 05/03/22 06/17/23 Cihnyere Shea RN [address] [place], [place] [address] Specialty 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 Hematology/Oncology 05/22/22 Enid Rod LISW [address] [place] [address] Foreman/Pile Driving And Erection Hematology/Oncology 07/15/22 Anca Almonte MD [address] [place] [address] Oncology 12/19/22 06/17/23 Bladder Trimmer Relationship Specialty Start Date End Date Sylvia Lizama MD [address] [place] [address] PCP - General Family Medicine 12/02/18 [place] [address] [place] [address] Referring Physical Medicine and Rehab 06/15/21 Chinyere Shea RN [address] [place] [address] Specialty 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 Hematology/Oncology 05/22/22 Enid Rod LISW [address] [place] [address] Foreman/Pile Driving [employer] Erection Hematology/Oncology 07/15/22 Prince Fang MD [address] [place] [address] Hematology/Oncology 06/18/23 Kirsten Monroy [address] [place] [address] Optometry 08/25/23 Bladder Trimmer Relationship Specialty Start Date End Date Sylvia Lizama MD [address] [place] [address] PCP - General Family Medicine 12/02/18 [place] [id number] [place] [address] Referring Physical Medicine and Rehab 06/15/21 Chinyere Shea RN [address] [place] [address] Specialty 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 Hematology/Oncology 05/22/22 Enid Rod LISW [address] [place] [address] Foreman/Pile Driving [employer]rection Hematology/Oncology 07/15/22 Prince Fang MD [address] [place] [address] Hematology/Oncology 06/18/23 Kirsten Monroy [address] [place] [address] Optometry 08/25/23 Bladder Trimmer Relationship Specialty Start Date End Date Sylvia Lizama MD [address] [place] [address] PCP - General Family Medicine 12/02/18 [place] [id number] [place] [address] Referring Physical Medicine and Rehab 06/15/21 Chinyere Shea RN [address] [place] [address] Specialty 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 Hematology/Oncology 05/22/22 Enid Rod LISW [address] [place] [address] Foreman/Pile Driving [employer]rection Hematology/Oncology 07/15/22 Prince Fang MD [address] [place] [address] Hematology/Oncology 06/18/23 Ctr, [facility] [address] [place] [address] Optometry 08/25/23 Bladder Trimmer Relationship Specialty Start Date End Date Sylvia Lizama MD [address] [place] [address] PCP - General Family Medicine 12/02/18 [place] [address] [place] [address] Referring Physical Medicine and Rehab 06/15/21 Chinyere Shea RN [address] [place] [address] Specialty 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 Hematology/Oncology 05/22/22 Enid Rod LISW [address] [place] [address] Foreman/Pile Driving [employer]rection Hematology/Oncology 07/15/22 Prince Fang MD [address] [place] [address] Hematology/Oncology 06/18/23 Ctr, [facility] [address] [place] [address] Optometry 08/25/23 Bladder Trimmer Relationship Specialty Start Date End Date Sylvia Lizama MD [address] [place] [address] PCP - General Family Medicine 12/02/18 [place] [address] [place] [address] Referring Physical Medicine and Rehab 06/15/21 Chiynere Shea RN [address] [place] [address] Specialty 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 Hematology/Oncology 05/22/22 Enid Rod LISW [address] [place] [address] Foreman/Pile Driving [employer] Erection Hematology/Oncology 07/15/22 Prince Fang MD [address] [place] [address] Hematology/Oncology 06/18/23 Ctr, [facility] [address] [place] [address] Optometry 08/25/23 Bladder Trimmer Relationship Specialty Start Date End Date Sylvia Lizama MD [address] [place] [address] PCP - General Family Medicine 12/02/18 [place] [address] [place] [address] Referring Physical Medicine and Rehab 06/15/21 Chinyere Shea RN [address] [place] [address] Specialty 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 Hematology/Oncology 05/22/22 Enid Rod LISW [address] [place] [address] Foreman/Pile Driving [employer] Erection Hematology/Oncology 07/15/22 Prince Fang MD [address] [place] [address] Hematology/Oncology 06/18/23 Ctr, [facility] [address] [place] [address] Optometry 08/25/23 Bladder Trimmer Relationship Specialty Start Date End Date Sylvia Lizama MD [address] [place] [address] PCP - General Family Medicine 12/02/18 [place] [address] [place] [address] Referring Physical Medicine and Rehab 06/15/21 Chinyere Shea RN [address] [place] [address] Specialty 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 Hematology/Oncology 05/22/22 Enid Rod LISW [address] [place] [address] Foreman/Pile Driving [employer] Erection Hematology/Oncology 07/15/22 Prince Fang MD [address] [place] [address] Hematology/Oncology 06/18/23 [facility], [facility] [address] [place] [address] Optometry 08/25/23 Bladder Trimmer Relationship Specialty Start Date End Date Sylvia Lizama MD [address] [place] [address] PCP - General Family Medicine 12/02/18 [place] [address] [place] [address] Referring Physical Medicine and Rehab 06/15/21 Chinyere Shea RN [address] [place] [address] Specialty 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 Hematology/Oncology 05/22/22 Enid Rod LISW [address] [place] [address] Foreman/Pile Driving [employer] Erection Hematology/Oncology 07/15/22 Prince Fang MD [address] [place] [address] Hematology/Oncology 06/18/23 Ctr, [facility] [address] [place] [address] Optometry 08/25/23 Bladder Trimmer Relationship Specialty Start Date End Date Sylvia Lizama MD [address] [place] [address] PCP - General Family Medicine 12/02/[place] [address] [place] [address] Referring Physical Medicine and Rehab 06/15/21 Chinyere Shea, RN [address] [place] [address] Specialty 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 Hematology/Oncology 05/22/22 Enid Rod, LUZ MARIA [address] [place] [address] Foreman/Pile Driving [employer] Erection Hematology/Oncology 07/15/22 Prince Fang MD [address] [place] [address] Hematology/Oncology 06/18/23 Ctr, [facility] [address] [place] [address] Optometry 08/25/23 Bladder Trimmer Relationship Specialty Start Date End Date Sylvia Lizama MD [address] [place] [address] PCP - General Family Medicine 12/02/18 [place] [address] [place] [address] Referring Physical Medicine and Rehab 06/15/21 Chinyere Shea RN [address] [place] [address] Specialty 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 Hematology/Oncology 05/22/22 Enid Rod LISW [address] [place] [address] Foreman/Pile Driving [employer] Erection Hematology/Oncology 07/15/22 Prince Fang MD [address] [place] [address] Hematology/Oncology 06/18/23 Ctr, [facility] [address] [place] [address] Optometry 08/25/23 Bladder Trimmer Relationship Specialty Start Date End Date Sylvia Lizama MD [address] [place] [address] PCP - General Family Medicine 12/02/18 [place] [address] [place] [address] Referring Physical Medicine and Rehab 06/15/21 Chinyere Shea RN [address] [place] [address] Specialty 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 Hematology/Oncology 05/22/22 Enid Rod LISW [address] [place] [address] Foreman/Pile Driving [employer] Erection Hematology/Oncology 07/15/22 Prince Fang MD [address] [place] [address] Hematology/Oncology 06/18/23 Ctr, [facility] [address] [place] [address] Optometry 08/25/23 Bladder Trimmer Relationship Specialty Start Date End Date Sylvia Lizama MD [address] [place] [address] PCP - General Family Medicine 12/02/[place] [address] [place] [address] Referring Physical Medicine and Rehab 06/15/21 Chinyere Shea, FRANCESCO [address] [place] [address] Specialty 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 Hematology/Oncology 05/22/22 Enid Rod LISW [address] [place] [address] Foreman/Pile Driving [employer] Erection Hematology/Oncology 07/15/22 Prince Fang MD [address] [place] [address] Hematology/Oncology 06/18/23 Ctr, [facility] [address] [place] [address] Optometry 08/25/23 Bladder Trimmer Relationship Specialty Start Date End Date Sylvia Lizama MD [address] [place] [address] PCP - General Family Medicine 12/02/18 [place] [address] [place] [address] Referring Physical Medicine and Rehab 06/15/21 Chinyere Shea RN [address] [place] [address] Specialty 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 Hematology/Oncology 05/22/22 Enid Rod LISW [address] [place] [address] Foreman/Pile Driving [employer] Erection Hematology/Oncology 07/15/22 Prince Fang MD [address] [place] [address] Hematology/Oncology 06/18/23 Kirsten Monroy [address] [place] [address] Optometry 08/25/23 Bladder Trimmer Relationship Specialty Start Date End Date Sylvia Lizama MD [address] [place] [address] PCP - General Family Medicine 12/02/18 [place] [address] [place] [address] Referring Physical Medicine and Rehab 06/15/21 Chinyere Shea, FRANCESCO [address] [place] [address] Specialty 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 Hematology/Oncology 05/22/22 Enid Rod LISW [address] [place] [address] Foreman/Pile Driving And Erection Hematology/Oncology 07/15/22 Prince Fang MD [address] [place] [address] Hematology/Oncology 06/18/23 CtrKirsten [address] [place] [address] Optometry 08/25/23 Bladder Trimmer Relationship Specialty Start Date End Date Sylvia Lizama MD [address] [place] [address] PCP - General Family Medicine 12/02/18 [place] [address] [place] [address] Referring Physical Medicine and Rehab 06/15/21 Chinyere Shea RN [address] [place] [address] Specialty 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 Hematology/Oncology 05/22/22 Enid Rod LISW [address] [place] [address] Foreman/Pile Driving [employer] Erection Hematology/Oncology 07/15/22 Prince Fang MD [address] [place] [address] Hematology/Oncology 06/18/23 Ctr, [facility] [address] [place] [address] Optometry 08/25/23 Bladder Trimmer Relationship Specialty Start Date End Date Sylvia Lizama MD [address] [place] [address] PCP - General Family Medicine 12/02/18 [place] [address] [place] [address] Referring Physical Medicine and Rehab 06/15/21 Chinyere Shea RN [address] [place] [address] Specialty 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 Hematology/Oncology 05/22/22 Enid Rod LISW [address] [place] [address] Foreman/Pile Driving [employer] Erection Hematology/Oncology 07/15/22 Prince Fang MD [address] [place] [address] Hematology/Oncology 06/18/23 Ctr, [facility] [address] [place] [address] Optometry 08/25/23 Bladder Trimmer Relationship Specialty Start Date End Date Sylvia Lizama MD [address] [place] [address] PCP - General Family Medicine 12/02/18 [place] [address] [place] [address] Referring Physical Medicine and Rehab 06/15/21 Chinyere Shea RN [address] [place] [address] Specialty 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 Hematology/Oncology 05/22/22 Enid Rod LISW [address] [place] [address] Foreman/Pile Driving [employer] Erection Hematology/Oncology 07/15/22 Prince Fang MD [address] [place] [address] Hematology/Oncology 06/18/23 Eliana, Kirsten Gonzáles [address] [place] [address] Optometry 08/25/23 Bladder Trimmer Relationship Specialty Start Date End Date Sylvia Lizama MD [address] [place] [address] PCP - General Family Medicine 12/02/18 [place] [address] [place] [address] Referring Physical Medicine and Rehab 06/15/21 Chinyere Shea RN [address] [place] [address] Specialty 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 Hematology/Oncology 05/22/22 Enid Rod LISW [address] [place] [address] Foreman/Pile Driving And Erection Hematology/Oncology 07/15/22 Prince Fang MD [address] [place] [address] Hematology/Oncology 06/18/23 Ctr, [facility] [address] [place] [address] Optometry 08/25/23 Bladder Trimmer Relationship Specialty Start Date End Date Sylvia Lizama MD [address] [place] [address] PCP - General Family Medicine 12/02/18 Rene Do DO [address] [place] [address] Referring Physical Medicine and Rehab 06/15/21 Chinyere Shea RN [address] [place] [address] Specialty 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 Hematology/Oncology 05/22/22 Enid Rod LISW [address] [place] [address] Foreman/Pile Driving And Erection Hematology/Oncology 07/15/22 Prince Fang MD [address] [place] [address] Hematology/Oncology 06/18/23 [facility], [facility] [address] [place] [address] Optometry 08/25/23 Bozena Hirsch RN [address] [id number] Primary Care Bar Steward 03/29/24 Bladder Trimmer Relationship Specialty Start Date End Date Sylvia Lizama MD [address] [place] [address] PCP - General Family Medicine 12/02/18 R[place] [id number] [place] [address] Referring Physical Medicine and Rehab 06/15/21 Chinyere Shea RN [address] [place] [address] Specialty 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 Hematology/Oncology 05/22/22 Enid Rod LISW [address] [place] [address] Foreman/Pile Driving [employer] Erection Hematology/Oncology 07/15/22 Prince Fang MD [address] [place] [address] Hematology/Oncology 06/18/23 Ctr, [facility] [address] [place] [address] Optometry 08/25/23 Bozena Hirsch RN [address] [id number] Primary Care Bar Steward 03/29/24 Bladder Trimmer Relationship Specialty Start Date End Date Sylvia Lizama MD [address] [place] [address] PCP - General Family Medicine 12/02/18 [place] [address] [place] [address] Referring Physical Medicine and Rehab 06/15/21 Chinyere Shea RN [address] [place] [address] Specialty 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 Hematology/Oncology 05/22/22 Enid Rod LISW [address] [place] [address] Foreman/Pile Driving And Erection Hematology/Oncology 07/15/22 Prince Fang MD [address] [place] [address] Hematology/Oncology 06/18/23 Ctr, [facility] [address] [place] [address] Optometry 08/25/23 Bozena Hirsch RN [address] [place] [address] Primary Care Bar Steward 03/29/24 Bladder Trimmer Relationship Specialty Start Date End Date Sylvia Lizama MD [address] [facility] [place] [address] PCP - General Family Medicine 12/02/18 R[place] Do [place] [id number] [place] [address] Referring Physical Medicine and Rehab 06/15/21 Chinyere Shea RN [address] [facility] [place] [address] Specialty 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 Hematology/Oncology 05/22/22 Enid Rod LISW [address] [place] [address] Foreman/Pile Driving And Erection Hematology/Oncology 07/15/22 Prince Fang MD [address] [place] [address] Hematology/Oncology 06/18/23 Ctr, [facility] [address] [place] [address] Optometry 08/25/23 Bozena Hirsch RN [address] [place] [address] Primary Care Bar Steward 03/29/24 Bladder Trimmer Relationship Specialty Start Date End Date Sylvia Lizama MD [address] [place], [place] 255381 PCP - General Family Medicine 12/02/18 [place] [address] [place] [address] Referring Physical Medicine and Rehab 06/15/21 Chinyere Shea RN [address] [place] [address] Specialty 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 Hematology/Oncology 05/22/22 Enid Rod LISW [address] [place] [address] Foreman/Pile Driving And Erection Hematology/Oncology 07/15/22 Prince Fang MD [address] [place] [address] Hematology/Oncology 06/18/23 Ctr, [facility] [address] [place] [address] Optometry 08/25/23 Bozena Hirsch RN [address] [id number] Primary Care Bar Steward 03/29/24 Bladder Trimmer Relationship Specialty Start Date End Date Sylvia Lizama MD [address] [place] [address] PCP - General Family Medicine 12/02/18 [place] [address] [place] [address] Referring Physical Medicine and Rehab 06/15/21 Chinyere Shea RN [address] [place] [address] Specialty 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 Hematology/Oncology 05/22/22 Enid Rod LISW [address] [place] [address] Foreman/Pile Driving [employer] Erection Hematology/Oncology 07/15/22 Prince Fang MD [address] [place] [address] Hematology/Oncology 06/18/23 Ctr, [facility] [address] [place] [address] Optometry 08/25/23 Bozena Hirsch RN [address] [place] [address] Primary Care Bar Steward 03/29/24 Bladder Trimmer Relationship Specialty Start Date End Date Sylvia Lizama MD [address] [facility] [place] [address] PCP - General Family Medicine 12/02/18 R[place] [id number] [place] [address] Referring Physical Medicine and Rehab 06/15/21 Chinyere Shea RN [address] [place] [address] Specialty 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 Hematology/Oncology 05/22/22 Enid Rod LISW [address] [place] [address] Foreman/Pile Driving And Erection Hematology/Oncology 07/15/22 Prince Fagn MD [address] [facility] [address] Hematology/Oncology 06/18/23 Ctr, [facility] [address] [place] [address] Optometry 08/25/23 Bozena Hirsch RN [address] [place] [address] Primary Care Bar Steward 03/29/24 Bladder Trimmer Relationship Specialty Start Date End Date Sylvia Lizama MD [address] [facility] [place] [address] PCP - General Family Medicine 12/02/18 [place] [address] [place] [address] Referring Physical Medicine and Rehab 06/15/21 Chinyere Shea RN [address] [place] [address] Specialty 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 Hematology/Oncology 05/22/22 Enid Rod LISW [address] [place] [address] Foreman/Pile Driving And Erection Hematology/Oncology 07/15/22 Prince Fang MD [address] [place] [address] Hematology/Oncology 06/18/23 Ctr, [facility] [employer] [facility] [employer] [facility] [address] [place] [address] Optometry 08/25/23 Bozena Hirsch RN [address] [place] [address] Primary Care Bar Steward 03/29/24 Bladder Trimmer Relationship Specialty Start Date End Date Sylvia Lizama MD [address] [place] [address] PCP - General Family Medicine 12/02/18 [place] [address] [place], [place] 0910211 Referring Physical Medicine and Rehab 06/15/21 Chinyere Shea RN [address] [place] [address] Specialty 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 Hematology/Oncology 05/22/22 Enid Rod LISW [address] [place] [address] Foreman/Pile Driving [employer] Erection Hematology/Oncology 07/15/22 Prince Fang MD [address] [place] [address] Hematology/Oncology 06/18/23 Ctr, [facility] [address] [place] [address] Optometry 08/25/23 Bozena Hirsch RN [address] [place] [address] Primary Care Bar Steward 03/29/24 Bladder Trimmer Relationship Specialty Start Date End Date Sylvia Lizama MD [address] [facility] [address] PCP - General Family Medicine 12/02/18 [place] [address] [place] [address] Referring Physical Medicine and Rehab 06/15/21 Chinyere Shea, FRANCESCO [address] [facility] [address] Specialty 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 Hematology/Oncology 05/22/22 Enid Rod LISW [address] [place] [address] Foreman/Pile Driving And Erection Hematology/Oncology 07/15/22 Prince Fang MD [address] [place] [address] Hematology/Oncology 06/18/23 Eliana, [facility] [address] [facility] [place] [address] Optometry 08/25/23 Bozena Hirsch, FRANCESCO [address] [place] [address] Primary Care Bar Steward 03/29/24 Bladder Trimmer Relationship Specialty Start Date End Date Sylvia Lizama MD [address] [facility] [place] [address] PCP - General Family Medicine 12/02/18 [place] [address] [place] [address] Referring Physical Medicine and Rehab 06/15/21 Chinyere Shea, FRANCESCO [address] [facility] [place] [address] Specialty 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 Hematology/Oncology 05/22/22 Enid Rod LISW [address] [place] [address] Foreman/Pile Driving And Erection Hematology/Oncology 07/15/22 Prince Fang MD [address] [place] [address] Hematology/Oncology 06/18/23 Ctr, [facility] [address] [facility] [address] Optometry 08/25/23 Bozena Hirsch RN [address] [place] [address] Primary Care Bar Steward 03/29/24 Bladder Trimmer Relationship Specialty Start Date End Date Sylvia Lizama MD [address] [place] [address] PCP - General Family Medicine 12/02/18 [place] [address] [place] [address] Referring Physical Medicine and Rehab 06/15/21 Chinyere Shea, FRANCESCO [address] [place] [address] Specialty 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 Hematology/Oncology 05/22/22 Enid Rod LISW [address] [place] [address] Foreman/Pile Driving [employer] Erection Hematology/Oncology 07/15/22 Prince Fang MD [address] [place] [address] Hematology/Oncology 06/18/23 Ctr, [facility] [address] [place] [address] Optometry 08/25/23 Bladder Trimmer Relationship Specialty Start Date End Date Sylvia Lizama MD [address] [place] [address] PCP - General Family Medicine 12/02/18 [place] [address] [place] [address] Referring Physical Medicine and Rehab 06/15/21 Chinyere Shea RN [address] [place] [address] Specialty 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 Hematology/Oncology 05/22/22 Enid Rod LISW [address] [place] [address] Foreman/Pile Driving And Erection Hematology/Oncology 07/15/22 Prince Fang MD [address] [place] [address] Hematology/Oncology 06/18/23 Ctr, [facility] [address] [place] [address] Optometry 08/25/23 Bladder Trimmer Relationship Specialty Start Date End Date Sylvia Lizama MD [address] [place] [address] PCP - General Family Medicine 12/02/18 [place] [address] [place] [address] Referring Physical Medicine and Rehab 06/15/21 Chinyere Shea RN [address] [place] [address] Specialty 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 Hematology/Oncology 05/22/22 Enid Rod LISW [address] [place] [address] Foreman/Pile Driving And Erection Hematology/Oncology 07/15/22 Prince Fang MD [address] [place] [address] Hematology/Oncology 06/18/23 Kirsten Monroy [address] [place] [address] Optometry 08/25/23 Bladder Trimmer Relationship Specialty Start Date End Date Sylvia Lizama MD [address] [place] [address] PCP - General Family Medicine 12/02/18 [place] [address] [place] [address] Referring Physical Medicine and Rehab 06/15/21 Chinyere Shea RN [address] [place] [address] Specialty 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 Hematology/Oncology 05/22/22 Enid Rod LISW [address] [place] [address] Foreman/Pile Driving And Erection Hematology/Oncology 07/15/22 Prince Fang MD [address] [place] [address] Hematology/Oncology 06/18/23 Kirsten Monroy [address] [place] [address] Optometry 08/25/23 Bladder Trimmer Relationship Specialty Start Date End Date Sylvia Lizama MD [address] [place] [address] PCP - General Family Medicine 12/02/18 [place] [address] [place] [address] Referring Physical Medicine and Rehab 06/15/21 Chinyere Shea RN [address] [place] [address] Specialty 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 Hematology/Oncology 05/22/22 Enid Rod LISW [address] [place] [address] Foreman/Pile Driving And Erection Hematology/Oncology 07/15/22 Prince Fang MD [address] [place] [address] Hematology/Oncology 06/18/23 Ctr, [facility] [address] [place] [address] Optometry 08/25/23 Bladder Trimmer Relationship Specialty Start Date End Date Sylvia Lizama MD [address] [place] [address] PCP - General Family Medicine 12/02/18 Rene Do DO [address] [place] [address] Referring Physical Medicine and Rehab 06/15/21 Melba Escudero MD [address] [place] [address] Hematology/Oncology 05/03/22 06/17/23 Chinyere Shea, FRANCESCO [address] [place] [address] Specialty 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 Hematology/Oncology 05/22/22 Enid Rod LISW [address] [place] [address] Foreman/Pile Driving And Erection Hematology/Oncology 07/15/22 Anca Almonte MD [address] [place] [address] Oncology 12/19/22 06/17/23 Bladder Trimmer Relationship Specialty Start Date End Date Sylvia Lizama MD [address] [facility] [place] [address] PCP - General Family Medicine 12/02/18 [place] [id number] [place] [address] Referring Physical Medicine and Rehab 06/15/21 Melba Escudero MD [address] [place] [address] Hematology/Oncology 05/03/22 06/17/23 Chinyere Shea RN [address] [place] [address] Specialty 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 Hematology/Oncology 05/22/22 Enid Rod LISW [address] [place] [address] Foreman/Pile Driving And Erection Hematology/Oncology 07/15/22 Anca Almonte MD [address] [place] [address] Oncology 12/19/22 06/17/23 Bladder Trimmer Relationship Specialty Start Date End Date Sylvia Lizama MD [address] [facility] [address] PCP - General Family Medicine 12/02/18 R[place] [id number] [place] [address] Referring Physical Medicine and Rehab 06/15/21 Chinyere Shea RN [address] [place] [address] Specialty 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 Hematology/Oncology 05/22/22 Enid Rod LISW [address] [place] [address] Foreman/Pile Driving And Erection Hematology/Oncology 07/15/22 Prince Fang MD [address], [place] [address] Hematology/Oncology 06/18/23 Ctr, [facility] [address] [place] [address] Optometry 08/25/23 Bladder Trimmer Relationship Specialty Start Date End Date Sylvia Lizama MD [address] [place] [address] PCP - General Family Medicine 12/02/18 Rene Do DO [address] [place] [address] Referring Physical Medicine and Rehab 06/15/21 Bladder Trimmer Relationship Specialty Start Date End Date Sylvia Lizama MD [address] [place] [address] PCP - General Family Medicine 12/02/18 Rene Do DO [address] [place] [address] Referring Physical Medicine and Rehab 06/15/21 Melba Escudero MD [address] [place] [address] Hematology/Oncology 05/03/22 Chinyere Shea, FRANCESCO [address], [place] [address] Specialty 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 Hematology/Oncology 05/22/22 Enid Rod LISW [address] [place] [address] Foreman/Pile Driving And Erection Hematology/Oncology 07/15/22 Anca Almonte MD [address] [place] [address] Oncology 12/19/22 Bladder Trimmer Relationship Specialty Start Date End Date Sylvia Lizama MD [address] [place] [address] PCP - General Family Medicine 12/02/18 Bladder Trimmer Relationship Specialty Start Date End Date Sylvia Lizama MD [address] [facility] [place] [address] PCP - General Family Medicine 12/02/18 Bladder Trimmer Relationship Specialty Start Date End Date Sylvia Lizama MD [address] [place] [address] PCP - General Family Medicine 12/02/18 Bladder Trimmer Relationship Specialty Start Date End Date Sylvia Lizama MD [address] [facility] [place], [place] [address] PCP - General Family Medicine 12/02/18 [place] [address] [place] [address] Referring Physical Medicine and Rehab 06/15/21 Chinyere Shea, FRANCESCO [address] [place] [address] Specialty 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 Hematology/Oncology 05/22/22 Enid Rod LISW [address] [place] [address] Foreman/Pile Driving And Erection Hematology/Oncology 07/15/22 Prince Fang MD [address] [place] [address] Hematology/Oncology 06/18/23 Ctr, [facility] [address] [place] [address] Optometry 08/25/23 Bladder Trimmer Relationship Specialty Start Date End Date Sylvia Lizama MD [address] [place] [address] PCP - General Family Medicine 12/02/18 [place] [address] [place] [address] Referring Physical Medicine and Rehab 06/15/21 Chinyere Shea RN [address] [place] [address] Specialty 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 Hematology/Oncology 05/22/22 Enid Rod LISW [address] [place] [address] Foreman/Pile Driving And Erection Hematology/Oncology 07/15/22 Prince Fang MD [address] [place] [address] Hematology/Oncology 06/18/23 Ctr, [facility] [address] [place] [address] Optometry 08/25/23 Bladder Trimmer Relationship Specialty Start Date End Date Sylvia Lizama MD [address] [place] [address] PCP - General Family Medicine 12/02/18 [place] [address] [place] [address] Referring Physical Medicine and Rehab 06/15/21 Chinyere Shea RN [address] [place] [address] Specialty 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 Hematology/Oncology 05/22/22 Enid Rod LISW [address] [place] [address] Foreman/Pile Driving And Erection Hematology/Oncology 07/15/22 Prince Fang MD [address] [place] [address] Hematology/Oncology 06/18/23 Ctr, [facility] [address] [place] [address] Optometry 08/25/23 Bladder Trimmer Relationship Specialty Start Date End Date Sylvia Lizama MD [address] [place] [address] PCP - General Family Medicine 12/02/18 [place] [id number] [place] [address] Referring Physical Medicine and Rehab 06/15/21 Chinyere Shea, FRANCESCO [address] [place] [address] Specialty 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 Hematology/Oncology 05/22/22 Enid Rod LISW [address] [place] [address] Foreman/Pile Driving And Erection Hematology/Oncology 07/15/22 Prince Fang MD [address] [place] [address] Hematology/Oncology 06/18/23 Ctr, [facility] [address] [place] [address] Optometry 08/25/23 Bladder Trimmer Relationship Specialty Start Date End Date Sylvia Lizama MD [address] [place] [address] PCP - General Family Medicine 12/02/18 R[place] [id number] [place] [address] Referring Physical Medicine and Rehab 06/15/21 Chinyere Shea RN [address] [place] [address] Specialty 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 Hematology/Oncology 05/22/22 Enid Rod LISW [address] [place] [address] Foreman/Pile Driving And Erection Hematology/Oncology 07/15/22 Prince Fang MD [address] [place] [address] Hematology/Oncology 06/18/23 Ctr, [facility] [address] [place] [address] Optometry 08/25/23 Bladder Trimmer Relationship Specialty Start Date End Date Sylvia Lizama MD [address] [place] [address] PCP - General Family Medicine 12/02/18 [place] [address] [place] [address] Referring Physical Medicine and Rehab 06/15/21 Chinyere Shea RN [address] [place] [address] Specialty 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 Hematology/Oncology 05/22/22 Enid Rod LISW [address] [place] [address] Foreman/Pile Driving And Erection Hematology/Oncology 07/15/22 Prince Fang MD [address] [place] [address] Hematology/Oncology 06/18/23 Ctr, [facility] [address] [place] [address] Optometry 08/25/23 Bladder Trimmer Relationship Specialty Start Date End Date Sylvia Lizama MD [address] [place] [address] PCP - General Family Medicine 12/02/18 [place] [address] [place] [address] Referring Physical Medicine and Rehab 06/15/21 Chinyere Shea RN [address] [place] [place] [address] Specialty 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 Hematology/Oncology 05/22/22 Enid Rod LISW [address] [place] [address] Foreman/Pile Driving And Erection Hematology/Oncology 07/15/22 Prince Fang MD [address] [place] [address] Hematology/Oncology 06/18/23 Ctr, [facility] [address] [place] [address] Optometry 08/25/23 Bladder Trimmer Relationship Specialty Start Date End Date Sylvia Lizama MD [address] [place] [address] PCP - General Family Medicine 12/02/18 [place] [address] [place] [address] Referring Physical Medicine and Rehab 06/15/21 Chinyere Shea RN [address] [place] [address] Specialty 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 Hematology/Oncology 05/22/22 Enid Rod LISW [address] [place] [address] Foreman/Pile Driving And Erection Hematology/Oncology 07/15/22 Prince Fang MD [address] [place] [address] Hematology/Oncology 06/18/23 [facility] [address] [place] [address] Optometry 08/25/23 Bladder Trimmer Relationship Specialty Start Date End Date Sylvia Lizama MD [address] [place] [address] PCP - General Family Medicine 12/02/[place] [address] [place] [address] Referring Physical Medicine and Rehab 06/15/21 Chinyere Shea RN [address] [place] [address] Specialty 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 Hematology/Oncology 05/22/22 Enid Rod LISW [address] [place] [address] Foreman/Pile Driving And Erection Hematology/Oncology 07/15/22 Prince Fang MD [address] [place] [address] Hematology/Oncology 06/18/23 [facility]tr[facility] [address] [place] [address] Optometry 08/25/23 Bladder Trimmer Relationship Specialty Start Date End Date Sylvia Lizama MD [address] [place] [address] PCP - General Family Medicine 12/02/18 [place] [address] [place] [address] Referring Physical Medicine and Rehab 06/15/21 Chinyere Shea RN [address] [place] [address] Specialty 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 Hematology/Oncology 05/22/22 Enid Rod LISW [address] [place] [address] Foreman/Pile Driving And Erection Hematology/Oncology 07/15/22 Prince Fang MD [address] [place] [address] Hematology/Oncology 06/18/23 Ctr, [facility] [address] [place] [address] Optometry 08/25/23 Bladder Trimmer Relationship Specialty Start Date End Date Sylvia Lizama MD [address] [place] [address] PCP - General Family Medicine 12/02/18 R[place] [id number] [place] [address] Referring Physical Medicine and Rehab 06/15/21 Chinyere Shea RN [address] [place] [address] Specialty 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 Hematology/Oncology 05/22/22 Enid Rod LISW [address] [place] [address] Foreman/Pile Driving And Erection Hematology/Oncology 07/15/22 Prince Fang MD [address] [place] [address] Hematology/Oncology 06/18/23 Ctr, [facility] [address] [place] [address] Optometry 08/25/23 Bladder Trimmer Relationship Specialty Start Date End Date Sylvia Lizama MD [address] [place] [address] PCP - General Family Medicine 12/02/18 [place] [address] [place] [address] Referring Physical Medicine and Rehab 06/15/21 Chinyere Shea RN [address] [place] [address] Specialty 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 Hematology/Oncology 05/22/22 Enid Rod LISW [address] [place] [address] Foreman/Pile Driving And Erection Hematology/Oncology 07/15/22 Prince Fang MD [address] [place] [address] Hematology/Oncology 06/18/23 Ctr, [facility] [address] [place] [address] Optometry 08/25/23 Bladder Trimmer Relationship Specialty Start Date End Date Sylvia Lizama MD [address] [place] [address] PCP - General Family Medicine 12/02/18 [place] [address] [place] [address] Referring Physical Medicine and Rehab 06/15/21 Chinyere Shea RN [address] [place] [address] Specialty 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 Hematology/Oncology 05/22/22 Enid Rod LISW [address] [place] [address] Foreman/Pile Driving And Erection Hematology/Oncology 07/15/22 Prince Fang MD [address] [place] [address] Hematology/Oncology 06/18/23 Ctr, [facility] [address] [place] [address] Optometry 08/25/23 Bladder Trimmer Relationship Specialty Start Date End Date Sylvia Lizama MD [address] [place] [address] PCP - General Family Medicine 12/02/18 [place] [address] [place] [address] Referring Physical Medicine and Rehab 06/15/21 Chinyere Shea RN [address] [place] [address] Specialty 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 Hematology/Oncology 05/22/22 Enid Rod LISW [address] [place] [address] Foreman/Pile Driving And Erection Hematology/Oncology 07/15/22 Prince Fang MD [address] [place] [address] Hematology/Oncology 06/18/23 Ctr, [facility] [address] [place] [address] Optometry 08/25/23 Gini Ayala APRN.CRISIS COUNSELOR [address] [place] [address] Florist'S Decorator Family Medicine 08/30/24 Judith Pickard APRN.CRISIS COUNSELOR [address] [place] [address] Florist'S Decorator Family Medicine 08/30/24 Bladder Trimmer Relationship Specialty Start Date End Date Sylvia Lizama MD [address] [place] [address] PCP - General Family Medicine 12/02/18 [place] [address] [place] [address] Referring Physical Medicine and Rehab 06/15/21 Chinyere Shea RN [address] [place] [address] Specialty 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 Hematology/Oncology 05/22/22 Enid Rod LISW [address] [place] [address] Foreman/Pile Driving And Erection Hematology/Oncology 07/15/22 Prince Fang MD [address] [place] [address] Hematology/Oncology 06/18/23 Ctr, [facility] [address] [place] [address] Optometry 08/25/23 Gini Ayala APRN.CRISIS COUNSELOR [address] [facility] [place] [address] Florist'S Decorator Family Medicine 08/30/24 Judith Pickard APRN.CRISIS COUNSELOR [address] [facility] [place] [address] Florist'S Decorator Family Medicine 08/30/24 Bladder Trimmer Relationship Specialty Start Date End Date Sylvia Lizama MD [address] [facility] [place] [address] PCP - General Family Medicine 12/02/[place] [address] [place] [address] Referring Physical Medicine and Rehab 06/15/21 Chinyere Shea RN [address] [place], [place] [address] Specialty 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 Hematology/Oncology 05/22/22 Enid Rod LISW [address] [place] [address] Foreman/Pile Driving And Erection Hematology/Oncology 07/15/22 Prince Fang MD [address] [facility] [place] [address] Hematology/Oncology 06/18/23 Ctr, [facility] [address] [facility] [place] [address] Optometry 08/25/23 Gini Ayala APRN.CRISIS COUNSELOR [address] [facility] [place], [place] [address] Florist'S Decorator Family Medicine 08/30/24 Judith Pickard PUBLIC POLICY PROFESSOR.CRISIS COUNSELOR [address] [facility] [place] [address] Florist'S Decorator Family Medicine 08/30/24 Bladder Trimmer Relationship Specialty Start Date End Date Sylvia Lizama MD [address] [facility] [place] [address] PCP - General Family Medicine 12/02/18 [place] [address] [place], [place] 970[address] Referring Physical Medicine and Rehab 06/15/21 Chinyere Shea, RN [address] [place], [place] [address]391 Specialty 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 Hematology/Oncology 05/22/22 Enid Rod LISW [address] [place] [address] Foreman/Pile Driving And Erection Hematology/Oncology 07/15/22 Prince Fang MD [address] [place] [address] Hematology/Oncology 06/18/23 Ctr, [facility] [address] [place] [address] Optometry 08/25/23 Gini Ayala APRN.CRISIS COUNSELOR [address] [facility] [place] [address] Florist'S Decorator Family Medicine 08/30/24 Judith Pickard APRN.CRISIS COUNSELOR [address] [facility] [place] [address] Florist'S Decorator Family Medicine 08/30/24 Bladder Trimmer Relationship Specialty Start Date End Date Sylvia Lizama MD [address] [facility] [place] [address] PCP - General Family Medicine 12/02/18 [place] [address] [place] [address] Referring Physical Medicine and Rehab 06/15/21 Chinyere Shea, FRANCESCO [address] [facility] [place] [address] Specialty 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 Hematology/Oncology 05/22/22 Enid Rod LISW [address] [place] [address] Foreman/Pile Driving And Erection Hematology/Oncology 07/15/22 Prince Fang MD [address] [place] [facility] [place] [address] Hematology/Oncology 06/18/23 Ctr, [facility] [address] [facility] [place] [address] Optometry 08/25/23 Gini Ayala APRN.CRISIS COUNSELOR [address] [place] [address] Florist'S Decorator Family Medicine 08/30/24 Judith Pickard PUBLIC POLICY PROFESSOR.CRISIS COUNSELOR [address] [facility] [place] [address] Florist'S Decorator Family Medicine 08/30/24 Bladder Trimmer Relationship Specialty Start Date End Date Sylvia Lizama MD [address] [facility] [place] [address] PCP - General Family Medicine 12/02/18 [place] [address] [place], [place] 7331711 Referring Physical Medicine and Rehab 06/15/21 Chinyere Shea RN [address] [place] [place] [address] Specialty 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 Hematology/Oncology 05/22/22 Enid Rod LISW [address] [place] [address] Foreman/Pile Driving And Erection Hematology/Oncology 07/15/22 Prince Fang MD [address] [place] [place] [address] Hematology/Oncology 06/18/23 Eliana, [facility] [address] [place] [address] Optometry 08/25/23 Gini Ayala, PUBLIC POLICY PROFESSOR.CRISIS COUNSELOR [address] [facility] [place] [address] Florist'S Decorator Family Medicine 08/30/24 Bladder Trimmer Relationship Specialty Start Date End Date Sylvia Lizama MD [address] [place] [address] PCP - General Family Medicine 12/02/18 [place] [address] [place] [address] Referring Physical Medicine and Rehab 06/15/21 Chinyere Shea RN [address] [place], [place] [address] Specialty 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 Hematology/Oncology 05/22/22 Enid Rod LISW [address] [place] [address] Foreman/Pile Driving And Erection Hematology/Oncology 07/15/22 Prince Fang MD [address] [place] [address] Hematology/Oncology 06/18/23 Ctr, [facility] [address] [place] [address] Optometry 08/25/23 Gini Ayala APRN.CRISIS COUNSELOR [address] [facility] [place] [address] Florist'S Decorator Family Medicine 08/30/24 Judith Pickard APRN.CRISIS COUNSELOR [address] [facility] [place] [address] Florist'S Decorator Family Medicine 08/30/24 Bladder Trimmer Relationship Specialty Start Date End Date Sylvia Lizama MD [address] [facility] [place] [address] PCP - General Family Medicine 12/02/18 [place] [address] [place] [address] Referring Physical Medicine and Rehab 06/15/21 Chinyere Shea RN [address] [place] [address] Specialty 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 Hematology/Oncology 05/22/22 Enid Rod LISW [address] [place] [address] Foreman/Pile Driving And Erection Hematology/Oncology 07/15/22 Prince Fang MD [address] [facility] [place] [address] Hematology/Oncology 06/18/23 Eliana, [facility] [address] [place] [address] Optometry 08/25/23 Gini Ayala, BECKY.CRISIS COUNSELOR [address] [place] [address] Florist'S Decorator Family Medicine 08/30/24 Judith Pickard PUBLIC POLICY PROFESSOR.CRISIS COUNSELOR [address] [place] [address] Florist'S Decorator Family Medicine 08/30/24 Bladder Trimmer Relationship Specialty Start Date End Date Sylvia Lizama MD [address] [place] [address] PCP - General Family Medicine 12/02/18 [place] [address] [place] [address] Referring Physical Medicine and Rehab 06/15/21 Chinyere Shea, FRANCESCO [address] [place] [address] Specialty 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 Hematology/Oncology 05/22/22 Enid Rod LISW [address] [place] [address] Foreman/Pile Driving And Erection Hematology/Oncology 07/15/22 Prince Fang MD [address] [place] [address] Hematology/Oncology 06/18/23 Ctr, [facility] [address] [place] [address] Optometry 08/25/23 Gini Ayala APRN.CRISIS COUNSELOR [address] [place] [address] Florist'S Decorator Family Medicine 08/30/24 Judith Pickard APRN.CRISIS COUNSELOR [address] [place] [address] Florist'S Decorator Family Medicine 08/30/24 Bladder Trimmer Relationship Specialty Start Date End Date Sylvia Lizama MD [address] [place] [address] PCP - General Family Medicine 12/02/18 [place] [id number] [place] [address] Referring Physical Medicine and Rehab 06/15/21 Chinyere Shea RN [address] [place] [address] Specialty 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 Hematology/Oncology 05/22/22 Enid Rod LISW [address] [place] [address] Foreman/Pile Driving And Erection Hematology/Oncology 07/15/22 Prince Fang MD [address] [place] [address] Hematology/Oncology 06/18/23 Ctr, [facility] [address] [place] [address] Optometry 08/25/23 Gini Ayala APRN.CRISIS COUNSELOR [address] [place] [address] Florist'S Decorator Family Medicine 08/30/24 Judith Pickard PUBLIC POLICY PROFESSOR.CRISIS COUNSELOR [address] [place] [address] Florist'S Decorator Family Medicine 08/30/24 Bladder Trimmer Relationship Specialty Start Date End Date Sylvia Lizama MD [address] [place] [address] PCP - General Family Medicine 12/02/18 [place] [address] [place] [address] Referring Physical Medicine and Rehab 06/15/21 Chinyere Shea, FRANCESCO [address] [place] [address] Specialty 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 Hematology/Oncology 05/22/22 Enid Rod LISW [address] [place] [address] Foreman/Pile Driving And Erection Hematology/Oncology 07/15/22 Prince Fang MD [address] [place] [address] Hematology/Oncology 06/18/23 Eliana, [facility] [address] [place] [address] Optometry 08/25/23 Gini Ayala, PUBLIC POLICY PROFESSOR.CRISIS COUNSELOR [address] [place] [address] Florist'S Decorator Family Medicine 08/30/24 Judith Pickard PUBLIC POLICY PROFESSOR.CRISIS COUNSELOR [address] [place] [address] Florist'S Decorator Family Medicine 08/30/24 Bladder Trimmer Relationship Specialty Start Date End Date Sylvia Lizama MD [address] [place] [address] PCP - General Family Medicine 12/02/18 [place] [address] [place] [address] Referring Physical Medicine and Rehab 06/15/21 Chinyere Shea RN [address] [place] [address] Specialty 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 Hematology/Oncology 05/22/22 Enid Rod LISW [address] [place] [address] Foreman/Pile Driving And Erection Hematology/Oncology 07/15/22 Prince Fang MD [address] [place] [address] Hematology/Oncology 06/18/23 Ctr, [facility] [address] [place] [address] Optometry 08/25/23 Gini Ayala, PUBLIC POLICY PROFESSOR.CRISIS COUNSELOR [address] [place] [address] Florist'S Decorator Family Medicine 08/30/24 Judith Pickard PUBLIC POLICY PROFESSOR.CRISIS COUNSELOR [address] [place] [address] Florist'S Decorator Family Medicine 08/30/24 Bladder Trimmer Relationship Specialty Start Date End Date Sylvia Lizama MD [address] [place] [address] PCP - General Family Medicine 12/02/18 [place] [address] [place] [address] Referring Physical Medicine and Rehab 06/15/21 Chinyere Shea RN [address] [place] [address] Specialty 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 Hematology/Oncology 05/22/22 Enid Rod LISW [address] [place] [address] Foreman/Pile Driving And Erection Hematology/Oncology 07/15/22 Prince Fang MD [address] [facility] [place] [address] Hematology/Oncology 06/18/23 Ctr, [facility] [address] [place] [address] Optometry 08/25/23 Giin Ayala APRN.CRISIS COUNSELOR [address] [place] [address] Florist'S Decorator Family Medicine 08/30/24 Judith Pickard PUBLIC POLICY PROFESSOR.CRISIS COUNSELOR [address] [place] [address] Florist'S Decorator Family Medicine 08/30/24 Bladder Trimmer Relationship Specialty Start Date End Date Sylvia Lizama MD [address] [place] [address] PCP - General Family Medicine 12/02/18 [place] [address] [place] [address] Referring Physical Medicine and Rehab 06/15/21 Chinyere Shea RN [address] [place] [address] Specialty 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 Hematology/Oncology 05/22/22 Enid Rod LISW [address] [place] [address] Foreman/Pile Driving And Erection Hematology/Oncology 07/15/22 Prince Fang MD [address] [place] [address] Hematology/Oncology 06/18/23 Ctr, [facility] [address] [place] [address] Optometry 08/25/23 Gini Ayala APRN.CRISIS COUNSELOR [address] [facility] [place] [address] Florist'S Decorator Family Medicine 08/30/24 Judith Pickard APRN.CRISIS COUNSELOR [address] [place], [place] [address] Florist'S Decorator Family Medicine 08/30/24 Bladder Trimmer Relationship Specialty Start Date End Date Sylvia Lizama MD [address] [place], [place] [address] PCP - General Family Medicine 12/02/18 [place] [address] [place], [place] 0049[address] Referring Physical Medicine and Rehab 06/15/21 Chinyere Shea, FRANCESCO [address] [place] [address] Specialty 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 Hematology/Oncology 05/22/22 Enid Rod LISW [address] [place] [address] Foreman/Pile Driving And Erection Hematology/Oncology 07/15/22 Prince Fang MD [address] [place] [address] Hematology/Oncology 06/18/23 Ctr, [facility] [address] [place] [address] Optometry 08/25/23 Gini Ayala APRN.CRISIS COUNSELOR [address] [facility] [place] [address] Florist'S Decorator Family Medicine 08/30/24 Judith Pickard, PUBLIC POLICY PROFESSOR.CRISIS COUNSELOR [address] [place] [address] Florist'S Decorator Family Medicine 08/30/24 Bladder Trimmer Relationship Specialty Start Date End Date Sylvia Lizama MD [address] [facility] [place] [address] PCP - General Family Medicine 12/02/18 [place] [address] [place] [address] Referring Physical Medicine and Rehab 06/15/21 Chinyere Shea, FRANCESCO [address] [place] [facility] [place] [address] Specialty 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 Hematology/Oncology 05/22/22 Enid Rod LISW [address] [place] [address] Foreman/Pile Driving And Erection Hematology/Oncology 07/15/22 Prince Fang MD [address] [place] [address] Hematology/Oncology 06/18/23 Ctr, [facility] [address] [facility] [place] [address] Optometry 08/25/23 Gini Ayala, PUBLIC POLICY PROFESSOR.CRISIS COUNSELOR [address] [facility] [place] [address] Florist'S Decorator Family Medicine 08/30/24 Judith Pickard, PUBLIC POLICY PROFESSOR.CRISIS COUNSELOR [address] [facility] [place] [address] Florist'S Decorator Family Medicine 08/30/24 Bladder Trimmer Relationship Specialty Start Date End Date Sylvia Lizama MD [address] [place] [address] PCP - General Family Medicine 12/02/[place] [address] [place] [address] Referring Physical Medicine and Rehab 06/15/21 Chinyere Shea RN [address] [facility] [place] [address] Specialty 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 Hematology/Oncology 05/22/22 Enid Rod LISW [address] [facility] [place] [address] Foreman/Pile Driving And Erection Hematology/Oncology 07/15/22 Prince Fang MD [address] [place] [address] Hematology/Oncology 06/18/23 Eliana, [facility] [address] [place] [address] Optometry 08/25/23 Gini Ayala, PUBLIC POLICY PROFESSOR.CRISIS COUNSELOR [address] [facility] [place] [address] Florist'S Decorator Family Medicine 08/30/24 Judith Pickard, PUBLIC POLICY PROFESSOR.CRISIS COUNSELOR [address] [place] [address] Florist'S Decorator Family Medicine 08/30/24 Bladder Trimmer Relationship Specialty Start Date End Date Sylvia Lizama MD [address] [place] [address] PCP - General Family Medicine 12/02/18 [place] [address] [place] [address] Referring Physical Medicine and Rehab 06/15/21 Chinyere Shea, RN [address] [place], [place] [address] Specialty 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 Hematology/Oncology 05/22/22 Enid Rod LISW [address] [place] [address] Foreman/Pile Driving And Erection Hematology/Oncology 07/15/22 Prince Fang MD [address] [place] [address] Hematology/Oncology 06/18/23 Ctr, [facility] [address] [place] [address] Optometry 08/25/23 Gini Ayala APRN.CRISIS COUNSELOR [address] [facility] [place] [address] Florist'S Decorator Family Medicine 08/30/24 Judith Pickard APRN.CRISIS COUNSELOR [address] [place] [address] Florist'S Decorator Family Medicine 08/30/24 Team Status: Active Member Role Status Dates Dr. Sylvia Lizama MD Primary Care Provider Active Team Status: Inactive Member Role Status Dates Dr. Sylvia Lizama MD Primary Care Provider Active Start: November 06, 2024 End: November 06, 2024 Dr. Zeny Wolff DO Attending Provider Active Start: November 06, 2024 End: November 06, 2024 Dr. Zeny Wolff DO Emergency Provider Active Start: November 06, 2024 End: November 06, 2024 Team Status: Active Member Role Status Dates Dr. Sylvia Lizama MD Primary Care Provider Active Start: November 26, 2024 Dr. Tanisha Bahena DO Emergency Provider Active Start: November 26, 2024 Dr. Jaxson Meehan , DO Admit Provider Active Start: November 26, 2024 Dr. Jaxson Meehan DO Attending Provider Active Start: November 26, 2024 Team Status: Active Member Role Status Dates Dr. Sylvia Lizama MD Primary Care Provider Active Start: November 26, 2024 Dr. Tanisha Bahena DO Emergency Provider Active Start: November 26, 2024 Dr. Jaxson Meehan DO Admit Provider Active Start: November 26, 2024 Dr. Jaxson Meehan DO Attending Provider Active Start: November 26, 2024 Dr. Jaxson Meehan DO Other Provider Active Start: November 26, 2024 Team Status: Active Member Role Status Dates Dr. Sylvia Lizama MD Primary Care Provider Active Start: November 27, 2024 Dr. Tanisha Bahena DO Emergency Provider Active Start: November 27, 2024 Dr. Jaxson Meehan DO Admit Provider Active Start: November 27, 2024 Dr. Jaxson Meehan DO Other Provider Active Start: November 27, 2024 Dr. Alysha Miguel MD Attending Provider Active Start: November 27, 2024 Dr. Alysha Miguel MD Other Provider Active Star t: November 27, 2024 Team Status: Inactive Member Role Status Dates Dr. Sylvia Lizama MD Primary Care Provider Active Start: November 27, 2024 End: December 01, 2024 Dr. Tanisha Bahena DO Emergency Provider Active Start: November 27, 2024 End: December 01, 2024 Dr. Jaxson Meehan DO Admit Provider Active Start: November 27, 2024 End: December 01, 2024 Dr. Jaxson Meehan DO Other Provider Active Start: November 27, 2024 End: December 01, 2024 Dr. Alysha Miguel MD Other Provider Active Star t: November 27, 2024 End: December 01, 2024 Dr. Kenyon Joiner MD Attending Provider Active Start: November 27, 2024 End: December 01, 2024 Team Status: Active Member Role Status Dates Dr. Sylvia Lizama MD Primary Care Provider Active Start: November 28, 2024 Dr. Tanisha Bahena DO Emergency Provider Active Start: November 28, 2024 Dr. Jaxson Meehan DO Admit Provider Active Start: November 28, 2024 Dr. Jaxson Meehan DO Other Provider Active Start: November 28, 2024 Dr. Alysha Miguel MD Attending Provider Active Start: November 28, 2024 Dr. Alysha Miguel MD Other Provider Active Star t: November 28, 2024 Team Status: Active Member Role Status Dates Dr. Sylvia Lizama MD Primary Care Provider Active Start: November 29, 2024 Dr. Tanisha Bahena DO Emergency Provider Active Start: November 29, 2024 Dr. Jaxson Meehan DO Admit Provider Active Start: November 29, 2024 Dr. Jaxson Meehan DO Other Provider Active Start: November 29, 2024 Dr. Alysha Miguel MD Attending Provider Active Start: November 29, 2024 Dr. Alysha Miguel MD Other Provider Active Star t: November 29, 2024 Team Status: Active Member Role Status Dates Dr. Sylvia Lizama MD Primary Care Provider Active Start: November 30, 2024 Dr. Tanisha Bahena DO Emergency Provider Active Start: November 30, 2024 Dr. Jaxson Meehan DO Admit Provider Active Start: November 30, 2024 Dr. Jaxson Meehan DO Attending Provider Active Start: November 30, 2024 Dr. Jaxson Meehan DO Other Provider Active Start: November 30, 2024 Dr. Alysha Miguel MD Other Provider Active Star t: November 30, 2024 Team Status: Active Member Role Status Dates Dr. Sylvia Lizama MD Primary Care Provider Active Start: December 01, 2024 Dr. Tanisha Bahena DO Emergency Provider Active Start: December 01, 2024 Dr. Jaxson Meehan DO Admit Provider Active Start: December 01, 2024 Dr. Jaxson Meehan DO Other Provider Active Start: December 01, 2024 Dr. Alysha Miguel MD Other Provider Active Star t: December 01, 2024 Dr. Kenyon Joiner MD Attending Provider Active Start: December 01, 2024 Dr. Kenyon Joiner MD Other Provider Active Start: December 01, 2024 Bladder Trimmer Relationship Specialty Start Date End Date Sylvia Lizama MD [address] [place] [address] PCP - General Family Medicine 12/02/18 [place] [address] [place] [address] Referring Physical Medicine and Rehab 06/15/21 Chinyere Shea RN [address] [place] [address] Specialty 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 Hematology/Oncology 05/22/22 Enid Rod LISW [address] [place] [address] Foreman/Pile Driving And Erection Hematology/Oncology 07/15/22 Prince Fang MD [address] [facility] [place] [address] Hematology/Oncology 06/18/23 Eliana, Kirsten Gonzáles [address] [place] [address] Optometry 08/25/23 Gini Ayala APRN.CRISIS COUNSELOR [address] [facility] [place] [address] Florist'S Decorator Family Medicine 08/30/24 Judith Pickard APRN.CRISIS COUNSELOR [address] [facility] [place] [address] Florist'S Decorator Family Medicine 08/30/24 Bladder Trimmer Relationship Specialty Start Date End Date Sylvia Lizama MD [address] [facility] [place] [address] PCP - General Family Medicine 12/02/18 [place] [address] [place] [address] Referring Physical Medicine and Rehab 06/15/21 Chinyere Shea RN [address] [place] [address] Specialty 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 Hematology/Oncology 05/22/22 Enid Rod LISW [address] [place] [address] Foreman/Pile Driving And Erection Hematology/Oncology 07/15/22 Prince Fang MD [address] [place] [address] Hematology/Oncology 06/18/23 Ctr, [facility] [address] [place] [address] Optometry 08/25/23 Gini Ayala APRN.CRISIS COUNSELOR [address] [place] [address] Florist'S Decorator Family Medicine 08/30/24 Judith Pickard APRN.CRISIS COUNSELOR [address] [place] [address] Florist'S Decorator Family Medicine 08/30/24 Bladder Trimmer Relationship Specialty Start Date End Date Sylvia Lizama MD [address] [place] [address] PCP - General Family Medicine 12/02/18 [place] [address] [place] [address] Referring Physical Medicine and Rehab 06/15/21 Chinyere Shea, FRANCESCO [address] [place] [address] Specialty 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 Hematology/Oncology 05/22/22 Enid Rod LISW [address] [place] [address] Foreman/Pile Driving And Erection Hematology/Oncology 07/15/22 Prince Fang MD [address] [place] [address] Hematology/Oncology 06/18/23 Ctr, [facility] [address] [place] [address] Optometry 08/25/23 Gini Ayala APRN.CRISIS COUNSELOR [address] [facility] [place] [address] Florist'S Decorator Family Medicine 08/30/24 Judith Pickard APRN.CRISIS COUNSELOR [address] [facility] [place] [address] Florist'S Decorator Family Medicine 08/30/24 Bladder Trimmer Relationship Specialty Start Date End Date Sylvia Lizama MD [address] [facility] [place] [address] PCP - General Family Medicine 12/02/18 [place] [address] [place], [place] [id number] Referring Physical Medicine and Rehab 06/15/21 Chinyere Shea, FRANCESCO [address] [place] [facility] [place] [address] Specialty 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 Hematology/Oncology 05/22/22 Enid Rod LISW [address] [place] [address] Foreman/Pile Driving And Erection Hematology/Oncology 07/15/22 Prince Fang MD [address] [place] [place] [address] Hematology/Oncology 06/18/23 [facility], [facility] [address] [place] [address] Optometry 08/25/23 Gini Ayala APRN.CRISIS COUNSELOR [address] [facility] [place] [address] Florist'S Decorator Family Medicine 08/30/24 Judith Pickard APRN.CRISIS COUNSELOR [address] [place] [address] Florist'S Decorator Family Medicine 08/30/24 Bladder Trimmer Relationship Specialty Start Date End Date Sylvia Lizama MD [address] [place], [place] [address] PCP - General Family Medicine 12/02/18 [place] [address] [place] [address] Referring Physical Medicine and Rehab 06/15/21 Chinyere Shea RN [address] [place] [address] Specialty 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 Hematology/Oncology 05/22/22 Enid Rod LISW [address] [place] [address] Foreman/Pile Driving And Erection Hematology/Oncology 07/15/22 Prince Fang MD [address] [place] [address] Hematology/Oncology 06/18/23 Eliana, [facility] [address] [facility] [place] [address] Optometry 08/25/23 Gini Ayala, PUBLIC POLICY PROFESSOR.CRISIS COUNSELOR [address] [facility] [place] [address] Florist'S Decorator Family Medicine 08/30/24 Judith Pickard PUBLIC POLICY PROFESSOR.CRISIS COUNSELOR [address] [place] [address] Florist'S Decorator Family Medicine 08/30/24 Bladder Trimmer Relationship Specialty Start Date End Date Sylvia Lizama MD [address] [place], [place] [address] PCP - General Family Medicine 12/02/18 [place] [address] [place] [address] Referring Physical Medicine and Rehab 06/15/21 Chinyere Shea RN [address] [place] [address] Specialty 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 Hematology/Oncology 05/22/22 Enid Rod LISW [address] [place] [address] Foreman/Pile Driving And Erection Hematology/Oncology 07/15/22 Prince Fang MD [address] [place] [address] Hematology/Oncology 06/18/23 Eliana, [facility] [address] [place] [address] Optometry 08/25/23 Gini Ayala, PUBLIC POLICY PROFESSOR.CRISIS COUNSELOR [address] [place] [address] Florist'S Decorator Family Medicine 08/30/24 Judith Pickard PUBLIC POLICY PROFESSOR.CRISIS COUNSELOR [address] [facility] [place] [address] Florist'S Decorator Family Medicine 08/30/24 Bladder Trimmer Relationship Specialty Start Date End Date Sylvia Lizama MD [address] [facility] [place] [address] PCP - General Family Medicine 12/02/18 [place] [address] [place] [address] Referring Physical Medicine and Rehab 06/15/21 Chinyere Shea RN [address] [place] [address] Specialty 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 Hematology/Oncology 05/22/22 Enid Rod LISW [address] [place] [address] Foreman/Pile Driving And Erection Hematology/Oncology 07/15/22 Prince Fang MD [address] [place] [address] Hematology/Oncology 06/18/23 Ctr, [facility] [address] [place] [address] Optometry 08/25/23 Gini Ayala APRN.CRISIS COUNSELOR [address] [place] [address] Florist'S Decorator Family Medicine 08/30/24 Judith Pickard APRN.CRISIS COUNSELOR [address] [place] [address] Florist'S Decorator Family Medicine 08/30/24 Bladder Trimmer Relationship Specialty Start Date End Date Sylvia Lizama MD [address] [place] [address] PCP - General Family Medicine 12/02/18 [place] [address] [place], [place] [address] Referring Physical Medicine and Rehab 06/15/21 Chinyere Shea, FRANCESCO [address] [place] [address] Specialty 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 Hematology/Oncology 05/22/22 Enid Rod LISW [address] [place] [address] Foreman/Pile Driving And Erection Hematology/Oncology 07/15/22 Prince Fang MD [address] [place] [address] Hematology/Oncology 06/18/23 Ctr, [facility] [address] [place] [address] Optometry 08/25/23 Gini Ayala APRN.CRISIS COUNSELOR [address] [place], [place] [address] Florist'S Decorator Family Medicine 08/30/24 Judith Pickard APRN.CRISIS COUNSELOR [address] [place], [place] [address] Florist'S Decorator Family Medicine 08/30/24 Bladder Trimmer Relationship Specialty Start Date End Date Sylvia Lizama MD [address] [place], [place] [address] PCP - General Family Medicine 12/02/18 [place] [address] [place] [address] Referring Physical Medicine and Rehab 06/15/21 Chinyere Shea, FRANCESCO [address] [place] [address] Specialty 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 Hematology/Oncology 05/22/22 Enid Rod LISW [address] [place] [address] Foreman/Pile Driving And Erection Hematology/Oncology 07/15/22 Prince Fang MD [address] [place] [address] Hematology/Oncology 06/18/23 Ctr, [facility] [address] [place] [address] Optometry 08/25/23 Gini Ayala APRN.CRISIS COUNSELOR [address] [place] [address] Florist'S Decorator [facility] 08/30/24 Judith Pickard APRN.[facility] [address] [place] [address] [facility] 08/[facility]/24 Team Status: Active Member Role/Relationship Status Dates Dr. Sylvia Lizama MD Primary Care Provider Active Team Status: Active Member Role/Relationship Status Dates Dr. Sylvia Lizama MD Primary Care Provider Active Start: December 02, 2024 Rafat NAYAK MD Attending Provider Active Start: December 02, 2024 Team Status: Inactive Member Role/Relationship Status Dates Dr. Sylvia Lizama MD Primary Care Provider Active Start: December 02, 2024 End: December 02, 2024 Christina Knox NP MECHANICAL CAD DRAFTER-C Attending Provider Active Start: December 02, 2024 End: December 02, 2024 Team Status: Inactive Member Role/Relationship Status Dates Dr. Sylvia Lizama MD Primary Care Provider Active Start: December 07, 2024 End: December 07, 2024 Dr. Rafat Casper MD Attending Provider Active Start: December 07, 2024 End: December 07, 2024 Team Status: Active Member Role/Relationship Status Dates Dr. Sylvia Lizama MD Primary Care Provider Active Start: December 08, 2024 Rafat NAYAK MD Attending Provider Active Start: December 08, 2024 Team Status: Active Member Role/Relationship Status Dates Dr. Sylvia Lizama MD Primary Care Provider Active Start: December 15, 2024 Rafat NAYAK MD Attending Provider Active Start: December 15, 2024 Team Status: Inactive Member Role/Relationship Status Dates Dr. Sylvia Lizama MD Primary Care Provider Active Start: December 15, 2024 End: December 15, 2024 Christina Knox NP MECHANICAL CAD DRAFTER-C Attending Provider Active Start: December 15, 2024 End: December 15, 2024 Team Status: Active Member Role/Relationship Status Dates Dr. Sylvia Lizama MD Primary Care Provider Active Start: April 01, 2025 Dr. Chase Jones MD Emergency Provider Active Sta rt: April 01, 2025 Dr. Andrade Tapia DO Admit Provider Active Star t: April 01, 2025 Dr. Andrade Tapia DO Attending Provider Active Start: April 01, 2025 Team Status: Active Member Role/Relationship Status Dates Dr. Sylvia Lizama MD Primary Care Provider Active Start: April 01, 2025 Dr. Chase Jones MD Emergency Provider Active Sta rt: April 01, 2025 Dr. Andrade Tapia DO Admit Provider Active Star t: April 01, 2025 Dr. Andrade Tapia DO Attending Provider Active Start: April 01, 2025 Dr. Andrade Tapia DO Other Provider Active Star t: April 01, 2025 Bladder Trimmer Relationship Specialty Start Date End Date Sylvia Lizama MD [address] [place], [place] [address] PCP - General Family Medicine 12/02/18 [place] [address] [place] [address] Referring Physical Medicine and Rehab 06/15/21 Chinyere Shea RN [address] [facility] [place] [address] Specialty 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 Hematology/Oncology 05/22/22 Enid Rod LISW [address] [place] [address] Foreman/Pile Driving And Erection Hematology/Oncology 07/15/22 Prince Fang MD [address] [address] Hematology/Oncology 06/18/23 Kirsten Monroy [address] [place] [address] Optometry 08/25/23 Gini Ayala APRN.CRISIS COUNSELOR [address] [place] [address] Florist'S Decorator Family Medicine 08/30/24 Judith Pickard APRN.[facility] [address] [place] [address] [facility] 08/30/24 Goals (unrecognized section and content) Goals may be documented in a n alternate sectionGoals may be documented in an alternate section FOR RECORDS PERTAINING TO PATIENTS WHO ARE OR HAVE BEEN ENROLLED IN A CHEMICAL DEPENDENCY/SUBSTANCEABUSE PROGRAM, SOME INFORMATION MAY BE OMITTED. This clinical summary was aggregated from multiple sources. Caution should be exercised in using it in the provision of clinical care. This summary normalizes information from multiple sources, and as a consequence, information in this document may materially change the coding, format and clinical context of patient data. In addition, data may be omitted in some cases. CLINICAL DECISIONS SHOULD BE BASED ON THE PRIMARY CLINICAL RECORDS. [facility]. provides no warranty or guarantee of the accuracy or completeness of information in this document.
--- OUTSIDE RECORDS SUMMARY | 2025-04-01 20:38 | XMS RPT_ITS | CCD ---
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 Sylvia Lizama Primary Care Provider Dr. César Berrios Emergency Provider Dr. Vikki Stanley Admit Provider Dr. iVkki Stanley Other Provider Dr. Kaylen Gonzalez Attending [...] Escudero MD Unavailable Suzy ROMERO, Anca Unavailable [facility] Unavailable Unavailable Dl ROMERO, Sylvia Fnuk Primary Care Provider Joycelyn MAYA, Bozena Morrison Unavailable Haagen COMMERCIAL REAL ESTATE LENDER.TIER [place], Gini Unavailable Suppan COMMERCIAL REAL ESTATE LENDER.TIER [place], Judith A Unavailable [phone] Suppan [employer] ESTATE LENDER.[place] [place], Judith A Unavailable [phone] [employer] [employer] E[employer] LENDER.[place] [place], Judith A Unavailable [phone] Dr. Sylvia Lizama MD Primary Care Provider Dr. Zeny Wolff DO Attending Provider Dr. Zeny Wolff DO Emergency Provider Dr. Tanisha Bahena DO Emergency Provider Dr. Jaxson Meehan DO Admit Provider Dr. Jaxson Meehan DO Attending Provider Dl ROMERO, Dr. Curtis Primary Care Provider New LARIOS, Dr. Corbin Attending Provider New LARIOS, Dr. Corbin Emergency Provider Dr. Tanisha Bahena DO Emergency Provider Shefali LARIOS, Dr. Puri Admit Provider Shefali LARIOS, Dr. Puri Attending Provider Shefali LARIOS, Dr. Puri Other Provider [phone] Myriam ROMERO, Dr. Santos Attending Provider Unavaila ble Myriam ROMERO, Dr. Santos Other Provider Unavailable Rhys ROMERO, Dr. Kenyon Snider Attending Provider Rhys ROMERO, Dr. Kenyon Snider Other Provider [place] Primary [facility] Unavailable Maria Isabel Glover Attending Unavailable Glover, Maria Isabel Consulting Unavailable Glover, Maria Isabel Admitting Unavailable Lisette VEGETABLE WASHER, Christina Attending Unavailable [place] Unavailable Evans Jones Attending Unavailable [place], Sylvia Primary Care Unavailable Kenyon Joiner Attending Unavailable Kenyon Joiner Consulting Unavailable Rafat Casper Attending Unavailable [place] Unavailable Lisette VEGETABLE WASHER, Christina Attending Unavailable [place] Primary [facility] Unavailable Kenyon Joiner Attending Unavailable Glover, Maria Isabel Consulting Unavailable Glover, Maria Isabel Admitting Unavailable [place], Sylvia Primary Care Unavailable Marcell Gutiérrez Attending Unavailable Dl, Sylvia Primary Care Unavailable Zeny Wolff Attending Unavailable [place], Sylvia Primary Care Unavailable Mosteller, Jaxson Admitting Unavailable Mostjuarez Jaxson Attending Unavailable Mosteller, Jaxson Consulting Unavailable [place], Sylvia Primary Care Unavailable Kenyon Joiner Attending Unavailable Tanisha Bahena Referring Unavailable Mostjuarez, Jaxson Admitting Unavailable Mostjuarez, Jaxson Consulting Unavailable [place], Sylvia Primary Care Unavailable Alysha Miguel Consulting Unavailable Pennie NAYAK Efvictor hugobe Attending Unavailabl e Dl, Sylvia Primary Care Unavailable Oleghe OLS Efewongbe Attending Unavailabl e [place], Sylvia Primary Care Unavailable Oleghe OLS, Efewongbe Attending Unavailabl e Dl, Sylvia Primary Care Unavailable Alysha Miguel Attending Unavailable Alysha Miguel Consulting Unavailable Jaxson Meehan Consulting Unavailable Jaxson Meehan Admitting Unavailable Dl, Sylvia Primary Care Unavailable Alysha Miguel Attending Unavailable Myriam, Alysha Consulting Unavailable Jaxson Meehan Attending Unavailable Kenyon Joiner Attending Unavailable Kenyon Joiner Consulting Unavailable Rene Do DO Unavailable DL, SYLVIA J Primary Care Unavailable MISSY IHRSCH Attending Unavailable MANUEL PICKARDQUELINE A Referring Unavailable [...] Dr. Rafat Casper MD Attending Provider Dr. Chase Jones MD Emergency Provider [phone] Andrade Tapia DO Admit Provider Dr. Andrade Tapia DO Attending Provider Dr. [...] (5 sources) NIFEdipine Drug Allergy 3 Rash [facility] Penicillins (antibiotic) (6 sources) Nafcillin Drug Allergy 9 Itching [facility] Work Phone: (20 sources) erythromycin; Translations: [erythromycin] Drug Allergy 3 Rash, GI Upset [facility] Repository (20 sources) Latex; Translations: [Latex] Propensity to adverse reactions to drug (disorder) 0 Swelling [facility] Repository (20 sources) lisinopril; Translations: [lisinopril] Drug Allergy 8 [facility] Repository (20 sources) amLODIPine; Translations: [AMLODIPINE BESYLATE] Drug Allergy 8 Swelling [facility] Work Phone: (20 sources) Nafcillin; Translations: [NAFCILLIN] Drug Allergy 9 Itching [facility] Work Phone: (6 sources) amLODIPine; Translations: [amlodipine] Drug Allergy 8 feet swell, Swelling [facility] Work Phone: (20 sources) WASPS; Translations: [WASPS] drug allergy 7 Mental Status Change, Rash [facility] Work Phone: (1 source) COVID VACCINE drug allergy 1 throat swelling, anaphylaxis [facility] Work Phone: (20 sources) Covid-19 Vaccine, Mrna, [id number], Lnp-S (Moderna); Translations: [COVID-19 VACCINE, MRNA, [id number], LNP-S (MODERNA)] Drug Allergy 1 Anaphylaxis [facility] (20 sources) Adhesive agent; Translations: [ADHESIVE] Drug Allergy 2 Rash [facility] Work Phone: (4 sources) Erythromycin Drug Allergy 2 Rash [facility] (5 sources) COVID-19 vaccine, mRNA, [id number],; Translations: [COVID-19 vaccine, mRNA, [id number],] Allergy to substance 2 Anaphylaxis [facility] (4 sources) venom-wasp Allergy to substance 2 NEEDS FOLLOW-UP [facility] (20 sources) NIFEdipine; Translations: [NIFEDIPINE] Drug Allergy 3 Rash [facility] (4 sources) Covid-19 Vaccine, Mrna, [id number], Lnp-S (Moderna) Drug Allergy 1 Anaphylaxis [facility] (1 source) Erythromycin Drug Allergy 5 [facility] Repository (1 source) venom-wasp Drug allergy (disorder) 5 [facility] Repository Medications Current Medications Medication Drug Class(es) Dates Sig (Normalized) Sig (Original) [id number] 200 actuat albuterol 0.09 mg/actuat metered dose [...] tablet by mouth once a day carvedilol [id number] Roseliamichelle Lindas CUSTOMIZER Comment on above: Take 1 tablet by [...] on above: Take 1 capsule by mo [facility] twice daily for 7 days. doxycycline hyclate [...] Contrast as designated per enteric contrast guidelines [id number] 0.3 ml EPINEPHrine 1 mg/ml auto-injector (20 [...] Start: 03-24-2024 take 1 capsule by mo [facility] three times daily Gabapentin 400 mg capsule [...] capsule by mouth twice a day gabapentin [id number] Roselia Ciro LPN Start: 06-10-2018 End: 06-10-2018 [...] on above: Take 1 capsule by mo [facility] twice daily for 7 days. Take 1 capsule by mo [facility] two times a day for 7 days. [...] mg PO DAILY March 24, 2024 12:00am [facility] petrolatum 0.41 mg/mg topical ointment (4 sources) [...] 24, 2018 12:02pm muscle relaxer bifidobacterium animalis [id number] unt / bifidobacterium longum [id number] unt / lactobacillus acidophilus [id number] unt oral capsule (1 source) Start: 01-08-2019 [...] 12:02pm docusate sodium 50 mg / sennosides, retirement 8.6 mg oral tablet (4 sources) Start: [...] tablet by mouth twice a day hydrochlorothiazide [id number] Roselia Tanner LPN Start: 06-10-2018 End: 11-24-2018 [...] twice daily. Take 1 capsule by mo moh once daily. hydroCHLOROthiazide 25 mg / triamterene [...] by mouth twice a day metoprolol tartrate [id number] Roselia Tanner [facility] Start: 06-07-2018 End: 11-24-2018 take 1 tablet [...] End: 04-29-2024 midazolam 1-5 mg injection (VERSED) bmizlabx-ddq-cghx-f a-lutein (1 source) Start: 07-06-2018 take 1 tablet by mouth once daily MULTIVITAMIN WOMEN 50+ TABS 1 tablet by mouth once a day pdnjuumd-ahk-asyy -fa-lutein [id number] Roselia Ciro [facility] NIFEdipine 30 mg osmotic 24 hr extended [...] tablet 07/27/2024 12/28/2024 Discontinued polyethylene glycol 3350 69247 mg powder for oral solution (4 sources) [...] on above: Take 2 tablets by mo [facility] once daily for 5 days. prochlorperazine 10 [...] Comment on above: Take 1 tablet by [facility] every 6 hours as needed. 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] Onset: 2 07-08-2023 [...] Auto (Unsp spec) [#/Vol] 1.40 10*3/uL 0.83-4.51 [facility] Absolute neutrophil countOrd ered By: ED PROVIDER on 04-01-2025 Neutrophils (Bld) [#/Vol] 3.7 10*3/uL 2.0-7.7 [facility] Activated partial thrombopla stin time (aPTT) in platelet poor plasma by coagulation aOrdered By: Chase Jones on 04-01-2025 aPTT Coag (PPP) [Time] 32.1 s 24.1-36.2 [facility] Anion gap in Serum or Plasma Ordered By: Chase Jones on 04-01-2025 Anion gap [Moles/Vol] 11 mmol/L 5-15 [facility] Automated lymphocyte count a s percentage of total leukocytesOrdered By: ED PROVIDER on 04-01-2025 Lymphocytes/100 WBC Auto (Unsp spec) 23.5 % 19-41 [facility] BUN/creatinine ratioOrdered By: Chase Jones on 04-01-2025 Urea nitrogen/Creatinine [Mass ratio] 15.9 mg/mg 10-20 [facility] Basophil percentageOrdered B y: ED PROVIDER on 04-01-2025 Basophils/100 WBC (Bld) 0.2 % 0-1 [facility] Carbon dioxide, total [Moles /volume] in Central venous bloodOrdered By: Chase Jones on 04-01-2025 CO2 [Moles/Vol] 27.5 mmol/L 21.0-32.0 [facility] Chloride assayOrdered By: Xenia Jones on 04-01-2025 Chloride [Moles/Vol] 103 mmol/L 98-108 [facility] Eosinophil percentageOrdered By: ED PROVIDER on 04-01-2025 Eosinophils/100 WBC (Bld) 3.9 % 0-5 [facility] Erythrocyte distribution wid th ratioOrdered By: ED PROVIDER on 04-01-2025 Erythrocyte distribution width (RBC) [Ratio] 12.5 % 11.6-14.6 [facility] Erythrocyte distribution wid th standard deviationOrdered By: ED PROVIDER on 04-01-2025 Erythrocyte distribution width (RBC) [Ratio] 44.5 fl High 35.1-43.9 [facility] Glomerular filtration rate ( GFR) estimation/1.73 sq m using serum, plasma, or whole bOrdered By: Chase Jones on 04-01-2025 GFR/1.73 sq M.predicted among non-blacks MDRD (S/P/Bld) [Vol rate/Area] 64 mL/min/{1.73_m2} >60 [facility] Comment on above: mL/min/1.73m2 CKD-EP I Creatinine Equation (2020) [facility] de[facility]dered By: Chase Jones on 04-01-2025 Glucose [Mass/Vol] 109 mg/dL High 74-106 [facility] Comment on above: MANAGEMENT OF PATIEN T CARE PER NURSING PROTOCOL Hematocrit Auto (Bld) [Volum e fraction]Ordered By: ED PROVIDER on 04-01-2025 Hematocrit (Bld) [Volume fraction] 41.1 % 37-47 [facility] Hemoglobin measurementOrdere d By: ED PROVIDER on 04-01-2025 Hemoglobin (Bld) [Mass/Vol] 13.4 g/dL 12.0-15.0 [facility] Immature granulocytes/100 WB C Auto (Bld)Ordered By: ED PROVIDER on 04-01-2025 Immature granulocytes/100 WBC (Bld) 0.200 % 0.0-0.9 [facility] Comment on above: IG% - Immature Granu locytes (promyelocytes, myelocytes and metamyelocytes) > 1% indicates that a LEFT SHIFT is Present. International normalized rat io (INR) calculationOrdered By: Chase Jones on 04-01-2025 INR Coag (Bld) [Relative time] 1.4 {INR} [facility] MCV (mean corpuscular volume ) determinationOrdered By: ED PROVIDER on 04-01-2025 MCV (RBC) [Entitic vol] 96.7 fL 81-[address] [facility] Mean corpuscular hemoglobin (MCH) determinationOrdered By: ED PROVIDER on 04-01-2025 MCH (RBC) [Entitic mass] 31.5 pg 27.0-32.0 [facility] Mean corpuscular hemoglobin concentration (MCHC) determinationOrdered By: ED PROVIDER on 04-01-2025 MCHC (RBC) [Mass/Vol] 32.6 g/dL 32-36 [facility] Mean platelet volume determi nationOrdered By: ED PROVIDER on 04-01-2025 Platelet mean volume (Bld) [Entitic vol] 10.1 fL 6.2-12.0 [facility] Monocyte percentageOrdered B y: ED PROVIDER on 04-01-2025 Monocytes/100 WBC (Bld) 9.6 % 0-[address] [facility] Neutrophil percentageOrdered By: ED PROVIDER on 04-01-2025 Neutrophils/100 WBC (Bld) 62.6 % 47-70 [facility] Nucleated red blood cell per centageOrdered By: ED PROVIDER on 04-01-2025 Nucleated RBC/100 WBC (Bld) [Ratio] 0 % 0-5 [facility] Platelet countOrdered By: ED PROVIDER on 04-01-2025 Platelets (Bld) [#/Vol] 147 10*3/uL Low 150-450 [facility] Potassium measurement (mass/ volume)Ordered By: Chase Jones on 04-01-2025 Potassium (Unsp spec) [Mass/Vol] 4.2 mmol/L 3.3-5.1 [facility] Prothrombin timeOrdered By: Chase Jones on 04-01-2025 PT Coag (PPP) [Time] 17.0 s High 11.7-14.9 [facility] RBC Auto (Bld) [#/Vol]Ordere d By: ED PROVIDER on 04-01-2025 RBC (Bld) [#/Vol] 4.25 10*6/uL 4.2-5.4 [facility] Serum creatinine measurement (mass/volume)Ordered By: Chase Jones on 04-01-2025 Creatinine [Mass/Vol] 0.91 mg/dL 0.70-1.20 [facility] Serum glucose measurement (m ass/volume)Ordered By: Chase Jones on 04-01-2025 Glucose [Mass/Vol] 107 mg/dL High 70-99 [facility] Serum or plasma calcium cirilo urement (mass/volume)Ordered By: Chase Jones on 04-01-2025 Calcium [Mass/Vol] 9.9 mg/dL 7.6-11.0 [facility] Serum or plasma urea nitroge n measurement (mass/volume)Ordered By: Chase Jones on 04-01-2025 Urea nitrogen [Mass/Vol] 14 mg/dL 4-19 [facility] Sodium levelOrdered By: Chasemelanie Jones on 04-01-2025 Sodium [Moles/Vol] 141 mmol/L 133-145 [facility] Troponin T.cardiac [Mass/vol ume] in Serum or Plasma by High sensitivity methodOrdered By: Chase Jones on 04-01-2025 Troponin T.cardiac High sensitivity method [Mass/Vol] 11 ng/L <14 [facility] Troponin T.cardiac High sensitivity method [Mass/Vol] 12 ng/L <14 [facility] Comment on above: Delta: 18 on 5-1405 White blood cell (WBC) count Ordered By: ED PROVIDER on 04-01-2025 WBC (Bld) [#/Vol] 6.0 10*3/uL 4.4-11.0 [facility] Absolute lymphocyte countOrd ered By: Rafat Casper on 12-15-2024 Lymphocytes Auto (Unsp spec) [#/Vol] 1.17 10*3/uL 0.83-4.51 [facility] Absolute neutrophil countOrd ered By: Rafat Casper on 12-15-2024 Neutrophils (Bld) [#/Vol] 2.6 10*3/uL 2.0-7.7 [facility] Anion gap in Serum or Plasma Ordered By: Rafat Casper on 12-15-2024 Anion gap [Moles/Vol] 10 mmol/L 5-15 [facility] Automated lymphocyte count a s percentage of total leukocytesOrdered By: Rafat Casper on 12-15-2024 Lymphocytes/100 WBC Auto (Unsp spec) 24.9 % 19-41 [facility] BUN/creatinine ratioOrdered By: Rafat Casper on 12-15-2024 Urea nitrogen/Creatinine [Mass ratio] 2.6 mg/mg Low 10-20 [facility] Basophil percentageOrdered B y: Rafat Casper on 12-15-2024 Basophils/100 WBC (Bld) 0.2 % 0-[address] [facility] Carbon dioxide, total [Moles /volume] in Central venous bloodOrdered By: Rafat Casper on 12-15-2024 CO2 [Moles/Vol] 23.0 mmol/L 21.0-32.0 [facility] Chloride assayOrdered By: Robert Casper on 12-15-2024 Chloride [Moles/Vol] 109 mmol/L High 98-108 [facility] Eosinophil percentageOrdered By: monikacouncil hillfrannie Casper on 12-15-2024 Eosinophils/100 WBC (Bld) 6.2 % High 0-5 [facility] Erythrocyte distribution wid th ratioOrdered By: maureen Casper on 12-15-2024 Erythrocyte distribution width (RBC) [Ratio] 13.7 % 11.6-14.6 [facility] Erythrocyte distribution wid th standard deviationOrdered By: monikacouncil hillfrannie Casper on 12-15-2024 Erythrocyte distribution width (RBC) [Ratio] 47.0 fl High 35.1-43.9 [facility] Glomerular filtration rate ( GFR) estimation/1.73 sq m using serum, plasma, or whole bOrdered By: Rafat Casper on 12-15-2024 GFR/1.73 sq M.predicted among non-blacks MDRD (S/P/Bld) [Vol rate/Area] 75 mL/min/{1.73_m2} >60 [facility] Comment on above: mL/min/1.73m2 CKD-EP I Creatinine Equation (2020) Hematocrit Auto (Bld) [Volum e fraction]Ordered By: Rafat Casper on 12-15-2024 Hematocrit (Bld) [Volume fraction] 32.9 % Low 37-47 [facility] Hemoglobin measurementOrdere d By: Rafat Casper on 12-15-2024 Hemoglobin (Bld) [Mass/Vol] 10.4 g/dL Low 12.0-15.0 [facility] Immature granulocytes/100 WB C Auto (Bld)Ordered By: Rafat Casper on 12-15-2024 Immature granulocytes/100 WBC (Bld) 0.600 % 0.0-0.9 [facility] Comment on above: IG% - Immature Granu locytes (promyelocytes, myelocytes and metamyelocytes) > 1% indicates that a LEFT SHIFT is Present. MCV (mean corpuscular volume ) determinationOrdered By: Rafat Casper on 12-15-2024 MCV (RBC) [Entitic vol] 97.6 fL 81-[address] [facility] Mean corpuscular hemoglobin (MCH) determinationOrdered By: monikacouncil hillfrannie Casper on 12-15-2024 MCH (RBC) [Entitic mass] 30.9 pg 27.0-32.0 [facility] Mean corpuscular hemoglobin concentration (MCHC) determinationOrdered By: Rafat Casper on 12-15-2024 MCHC (RBC) [Mass/Vol] 31.6 g/dL Low 32-36 [facility] Mean platelet volume determi nationOrdered By: Rafat Casper on 12-15-2024 Platelet mean volume (Bld) [Entitic vol] 10.4 fL 6.2-12.0 [facility] Monocyte percentageOrdered B y: Rafat Casper on 12-15-2024 Monocytes/100 WBC (Bld) 13.2 % High 0-[address] [facility] Neutrophil percentageOrdered By: maureen Casper on 12-15-2024 Neutrophils/100 WBC (Bld) 54.9 % 47-70 [facility] Nucleated red blood cell per centageOrdered By: Rafat Casper on 12-15-2024 Nucleated RBC/100 WBC (Bld) [Ratio] 0 % 0-5 [facility] Platelet countOrdered By: Robert Casper on 12-15-2024 Platelets (Bld) [#/Vol] 142 10*3/uL Low 150-450 [facility] Potassium measurement (mass/ volume)Ordered By: Rafat Casper on 12-15-2024 Potassium (Unsp spec) [Mass/Vol] 4.1 mmol/L 3.3-5.1 [facility] RBC Auto (Bld) [#/Vol]Ordere d By: Rafat Casper on 12-15-2024 RBC (Bld) [#/Vol] 3.37 10*6/uL Low 4.2-5.4 [facility] Serum creatinine measurement (mass/volume)Ordered By: Rafat Casper on 12-15-2024 Creatinine [Mass/Vol] 0.79 mg/dL 0.70-1.20 [facility] Serum glucose measurement (m ass/volume)Ordered By: Rafat Casper on 12-15-2024 Glucose [Mass/Vol] 99 mg/dL 70-99 [facility] Serum or plasma calcium cirilo urement (mass/volume)Ordered By: Rafat Casper on 12-15-2024 Calcium [Mass/Vol] 9.1 mg/dL 7.6-11.0 [facility] Serum or plasma urea nitroge n measurement (mass/volume)Ordered By: Rafat Casper on 12-15-2024 Urea nitrogen [Mass/Vol] 2 mg/dL Low 4-19 [facility] Sodium levelOrdered By: Robertmonika louis Pennie on 12-15-2024 Sodium [Moles/Vol] 142 mmol/L 133-145 [facility] White blood cell (WBC) count Ordered By: Rafat Casper on 12-15-2024 WBC (Bld) [#/Vol] 4.7 10*3/uL 4.4-11.0 [facility] Absolute lymphocyte countOrd ered By: Rafat Casper on 12-08-2024 Lymphocytes Auto (Unsp spec) [#/Vol] 0.97 10*3/uL 0.83-4.51 [facility] Absolute neutrophil countOrd ered By: Rafat Casper on 12-08-2024 Neutrophils (Bld) [#/Vol] 2.3 10*3/uL 2.0-7.7 [facility] Anion gap in Serum or Plasma Ordered By: Rafat Casper on 12-08-2024 Anion gap [Moles/Vol] 11 mmol/L 5-15 [facility] Automated lymphocyte count a s percentage of total leukocytesOrdered By: Rafat Casper on 12-08-2024 Lymphocytes/100 WBC Auto (Unsp spec) 22.9 % 19-41 [facility] BUN/creatinine ratioOrdered By: Rafat Casper on 12-08-2024 Urea nitrogen/Creatinine [Mass ratio] 14.9 mg/mg 10-20 [facility] Basophil percentageOrdered B y: Rafat Casper on 12-08-2024 Basophils/100 WBC (Bld) 0.5 % 0-1 [facility] Carbon dioxide, total [Moles /volume] in Central venous bloodOrdered By: Rafat Casper on 12-08-2024 CO2 [Moles/Vol] 22.9 mmol/L 21.0-32.0 [facility] Chloride assayOrdered By: Robert Casper on 12-08-2024 Chloride [Moles/Vol] 106 mmol/L 98-108 [facility] Eosinophil percentageOrdered By: Rafat Casper on 12-08-2024 Eosinophils/100 WBC (Bld) 5.7 % High 0-5 [facility] Erythrocyte distribution wid th ratioOrdered By: Rafat Casper on 12-08-2024 Erythrocyte distribution width (RBC) [Ratio] 12.7 % 11.6-14.6 [facility] Erythrocyte distribution wid th standard deviationOrdered By: Rafat Casper on 12-08-2024 Erythrocyte distribution width (RBC) [Ratio] 44.6 fl High 35.1-43.9 [facility] Glomerular filtration rate ( GFR) estimation/1.73 sq m using serum, plasma, or whole bOrdered By: Rafat Casper on 12-08-2024 GFR/1.73 sq M.predicted among non-blacks MDRD (S/P/Bld) [Vol rate/Area] 71 mL/min/{1.73_m2} >60 [facility] Comment on above: mL/min/1.73m2 CKD-EP I Creatinine Equation (2020) Hematocrit Auto (Bld) [Volum e fraction]Ordered By: Rafat Casper on 12-08-2024 Hematocrit (Bld) [Volume fraction] 33.1 % Low 37-47 [facility] Hemoglobin measurementOrdere d By: Rafat Casper on 12-08-2024 Hemoglobin (Bld) [Mass/Vol] 10.5 g/dL Low 12.0-15.0 [facility] Immature granulocytes/100 WB C Auto (Bld)Ordered By: Rafat Casper on 12-08-2024 Immature granulocytes/100 WBC (Bld) 2.100 % High 0.0-0.9 [facility] Comment on above: IG% - Immature Granu locytes (promyelocytes, myelocytes and metamyelocytes) > 1% indicates that a LEFT SHIFT is Present. MCV (mean corpuscular volume ) determinationOrdered By: Rafat Casper on 12-08-2024 MCV (RBC) [Entitic vol] 96.5 fL 81-[address] [facility] Mean corpuscular hemoglobin (MCH) determinationOrdered By: Rafat Casper on 12-08-2024 MCH (RBC) [Entitic mass] 30.6 pg 27.0-32.0 [facility] Mean corpuscular hemoglobin concentration (MCHC) determinationOrdered By: Rafat Casper on 12-08-2024 MCHC (RBC) [Mass/Vol] 31.7 g/dL Low 32-36 [facility] Mean platelet volume determi nationOrdered By: Rafat Casper on 12-08-2024 Platelet mean volume (Bld) [Entitic vol] 10.4 fL 6.2-12.0 [facility] Monocyte percentageOrdered B y: Rafat Casper on 12-08-2024 Monocytes/100 WBC (Bld) 13.7 % High 0-[address] [facility] Neutrophil percentageOrdered By: Rafat Casper on 12-08-2024 Neutrophils/100 WBC (Bld) 55.1 % 47-70 [facility] Nucleated red blood cell per centageOrdered By: Rafat Casper on 12-08-2024 Nucleated RBC/100 WBC (Bld) [Ratio] 0 % 0-5 [facility] Platelet countOrdered By: Robert Casper on 12-08-2024 Platelets (Bld) [#/Vol] 152 10*3/uL 150-450 [facility] Potassium measurement (mass/ volume)Ordered By: Rafat Casper on 12-08-2024 Potassium (Unsp spec) [Mass/Vol] 4.2 mmol/L 3.3-5.1 [facility] RBC Auto (Bld) [#/Vol]Ordere d By: Rafat Casper on 12-08-2024 RBC (Bld) [#/Vol] 3.43 10*6/uL Low 4.2-5.4 [facility] Serum creatinine measurement (mass/volume)Ordered By: Rafat Casper on 12-08-2024 Creatinine [Mass/Vol] 0.83 mg/dL 0.70-1.20 [facility] Serum glucose measurement (m ass/volume)Ordered By: Rafat Casper on 12-08-2024 Glucose [Mass/Vol] 97 mg/dL 70-99 [facility] Serum or plasma calcium cirilo urement (mass/volume)Ordered By: Rafat Casper on 12-08-2024 Calcium [Mass/Vol] 9.1 mg/dL 7.6-11.0 [facility] Serum or plasma urea nitroge n measurement (mass/volume)Ordered By: Rafat Casper on 12-08-2024 Urea nitrogen [Mass/Vol] 12 mg/dL 4-19 [facility] Sodium levelOrdered By: Shalini Casper on 12-08-2024 Sodium [Moles/Vol] 140 mmol/L 133-145 [facility] TSH DL <= 0.005 mIU/L QnOrde red By: Rafat Casper on 12-08-2024 TSH Qn 4.280 uIU/mL High 0.300-4.200 [facility] White blood cell (WBC) count Ordered By: Rafat Casper on 12-08-2024 WBC (Bld) [#/Vol] 4.2 10*3/uL Low 4.4-11.0 [facility] Absolute lymphocyte countOrd ered By: Rafat Casper on 12-02-2024 Lymphocytes Auto (Unsp spec) [#/Vol] 0.88 10*3/uL 0.83-4.51 [facility] Absolute neutrophil countOrd ered By: Rafat Casper on 12-02-2024 Neutrophils (Bld) [#/Vol] 2.1 10*3/uL 2.0-7.7 [facility] Anion gap in Serum or Plasma Ordered By: Rafat Blackwoodcarolynflavio on 12-02-2024 Anion gap [Moles/Vol] 12 mmol/L 5-15 [facility] Automated lymphocyte count a s percentage of total leukocytesOrdered By: Rafat Blackwoodcarolynflavio on 12-02-2024 Lymphocytes/100 WBC Auto (Unsp spec) 24.0 % 19-41 [facility] BUN/creatinine ratioOrdered By: Robertmonikalouis Jaisoncarolynflavio on 12-02-2024 Urea nitrogen/Creatinine [Mass ratio] 27.6 mg/mg High 10-20 [facility] Basophil percentageOrdered B y: Rafat Hardingflavio on 12-02-2024 Basophils/100 WBC (Bld) 0.0 % 0-[address] [facility] Bilirubin, totalOrdered By: Shalinilouis Jaisoncarolynflavio on 12-02-2024 Bilirubin [Mass/Vol] 0.21 mg/dL 0.00-1.30 [facility] Carbon dioxide, total [Moles /volume] in Central venous bloodOrdered By: Shalinijoséfrannie Blackwoodcarolynflavio on 12-02-2024 CO2 [Moles/Vol] 22.4 mmol/L 21.0-32.0 [facility] Chloride assayOrdered By: Robert monikalouis Blackwoodcarolynflavio on 12-02-2024 Chloride [Moles/Vol] 105 mmol/L 98-108 [facility] Eosinophil percentageOrdered By: Shalinilouis Jaisoncarolynflavio on 12-02-2024 Eosinophils/100 WBC (Bld) 4.4 % 0-5 [facility] Erythrocyte distribution wid th ratioOrdered By: Rafat Casper on 12-02-2024 Erythrocyte distribution width (RBC) [Ratio] 12.8 % 11.6-14.6 [facility] Erythrocyte distribution wid th standard deviationOrdered By: Rafat Casper on 12-02-2024 Erythrocyte distribution width (RBC) [Ratio] 43.9 fl 35.1-43.9 [facility] Glomerular filtration rate ( GFR) estimation/1.73 sq m using serum, plasma, or whole bOrdered By: Rafat Casper on 12-02-2024 GFR/1.73 sq M.predicted among non-blacks MDRD (S/P/Bld) [Vol rate/Area] 89 mL/min/{1.73_m2} >60 [facility] Comment on above: mL/min/1.73m2 CKD-EP I Creatinine Equation (2020) Hematocrit Auto (Bld) [Volum e fraction]Ordered By: Rafat Casper on 12-02-2024 Hematocrit (Bld) [Volume fraction] 32.0 % Low 37-47 [facility] Hemoglobin measurementOrdere d By: Rafat Casper on 12-02-2024 Hemoglobin (Bld) [Mass/Vol] 10.3 g/dL Low 12.0-15.0 [facility] Immature granulocytes/100 WB C Auto (Bld)Ordered By: Rafat Casper on 12-02-2024 Immature granulocytes/100 WBC (Bld) 1.600 % High 0.0-0.9 [facility] Comment on above: IG% - Immature Granu locytes (promyelocytes, myelocytes and metamyelocytes) > 1% indicates that a LEFT SHIFT is Present. Laboratory - Chemistry and C hemistry - challengeOrdered By: Rafat Casper on 12-02-2024 AST [Catalytic activity/Vol] 22 U/L <32 [facility] MCV (mean corpuscular volume ) determinationOrdered By: Rafat Casper 12-02-2024 MCV (RBC) [Entitic vol] 94.4 fL 81-[address] [facility] Mean corpuscular hemoglobin (MCH) determinationOrdered By: Rafat Casper on 12-02-2024 MCH (RBC) [Entitic mass] 30.4 pg 27.0-32.0 [facility] Mean corpuscular hemoglobin concentration (MCHC) determinationOrdered By: Rafat Casper on 12-02-2024 MCHC (RBC) [Mass/Vol] 32.2 g/dL 32-36 [facility] Mean platelet volume determi nationOrdered By: Rafat Blackwoodcarolynflavio on 12-02-2024 Platelet mean volume (Bld) [Entitic vol] 10.4 fL 6.2-12.0 [facility] Monocyte percentageOrdered B y: Rafat Blackwoodcarolynflavio on 12-02-2024 Monocytes/100 WBC (Bld) 13.1 % High 0-[address] [facility] Neutrophil percentageOrdered By: Rafat Casper on 12-02-2024 Neutrophils/100 WBC (Bld) 56.9 % 47-70 [facility] Nucleated red blood cell per centageOrdered By: Rafat Casper on 12-02-2024 Nucleated RBC/100 WBC (Bld) [Ratio] 0 % 0-5 [facility] Platelet countOrdered By: Robert victor hugofrannie Blackwoodcarolynflavio on 12-02-2024 Platelets (Bld) [#/Vol] 124 10*3/uL Low 150-450 [facility] Potassium measurement (mass/ volume)Ordered By: Rafta Casper on 12-02-2024 Potassium (Unsp spec) [Mass/Vol] 4.2 mmol/L 3.3-5.1 [facility] RBC Auto (Bld) [#/Vol]Ordere d By: Rafat Casper on 12-02-2024 RBC (Bld) [#/Vol] 3.39 10*6/uL Low 4.2-5.4 [facility] Serum creatinine measurement (mass/volume)Ordered By: Rafat Casper on 12-02-2024 Creatinine [Mass/Vol] 0.64 mg/dL Low 0.70-1.20 [facility] Serum globulin measurementOr dered By: Rafat Casper on 12-02-2024 Globulin (S) [Mass/Vol] 2.3 g/dL 2.2-4.2 [facility] Serum glucose measurement (m ass/volume)Ordered By: Rafat Casper on 12-02-2024 Glucose [Mass/Vol] 107 mg/dL High 70-99 [facility] Serum or plasma alanine rice otransferase (ALT) measurementOrdered By: Rafat Casper on 12-02-2024 ALT [Catalytic activity/Vol] 6 U/L <35 [facility] Serum or plasma albumin cirilo urement (mass/volume)Ordered By: Rafat Casper on 12-02-2024 Albumin [Mass/Vol] 3.2 g/dL Low 3.4-4.8 [facility] Serum or plasma albumin/glob ulin mass ratioOrdered By: Rafat Casper 12-02-2024 Albumin/Globulin [Mass ratio] 1.4 {ratio} 0.9-2.4 [facility] Serum or plasma alkaline anitha sphatase measurementOrdered By: Rafat Casper on 12-02-2024 ALP [Catalytic activity/Vol] 53 U/L 35-104 [facility] Serum or plasma calcium cirilo urement (mass/volume)Ordered By: Rafat Casper 12-02-2024 Calcium [Mass/Vol] 9.2 mg/dL 7.6-11.0 [facility] Serum or plasma urea nitroge n measurement (mass/volume)Ordered By: Rafat Casper 12-02-2024 Urea nitrogen [Mass/Vol] 18 mg/dL 4-19 [facility] Sodium levelOrdered By: Shalini Casper on 12-02-2024 Sodium [Moles/Vol] 139 mmol/L 133-145 [facility] Total proteinOrdered By: Ray Casper on 12-02-2024 Protein [Mass/Vol] 5.5 g/dL Low 5.9-8.4 [facility] White blood cell (WBC) count Ordered By: Rafat Casper 12-02-2024 WBC (Bld) [#/Vol] 3.7 10*3/uL Low 4.4-11.0 [facility] Absolute neutrophil countOrd ered By: Alysha Miguel on 12-01-2024 Neutrophils (Bld) [#/Vol] 3.2 10*3/uL 2.0-7.7 [facility] Anion gap in Serum or Plasma Ordered By: Alysha Miguel on 12-01-2024 Anion gap [Moles/Vol] 12 mmol/L 5-15 [facility] BUN/creatinine ratioOrdered By: Alysha Miguel on 12-01-2024 Urea nitrogen/Creatinine [Mass ratio] 23.4 mg/mg High 10- [facility] Basic Metabolic Profile (BMP )on 12-01-2024 BUN/CRE 23.4 RATIO High - [facility] Comment on above: Performed By: #### L 100.0100, L501.5200, L500.2500 #### [facility] [address] [place], [address] Calcium [Mass/Vol] 9.2 mg/dL Normal 7.6-11.0 [facility] Comment on above: Performed By: #### L 100.0100, L501.5200, L500.2500 #### [facility] [address] [place], [address] Chloride [Moles/Vol] 104 mmol/L Normal 98-108 [facility] Comment on above: Performed By: #### L 100.0100, L501.5200, L500.2500 #### [facility] [address] [place], [address] CO2 [Moles/Vol] 23.0 mmol/L Normal 21.0-32.0 [facility] Comment on above: Performed By: #### L 100.0100, L501.5200, L500.2500 #### [facility] [address] [place], [address] Creatinine [Mass/Vol] 0.70 mg/dL Normal 0.70-1.20 [facility] Comment on above: Performed By: #### L 100.0100, L501.5200, L500.2500 #### [facility] [address] [place], [address] ECRCL 64.53 ml/min Normal 50-250 [facility] Comment on above: Performed By: #### L 100.0100, L501.5200, [id number] #### [facility] [address] [place], [address] GAP 12 Normal 5-15 [facility] Comment on above: Performed By: #### L 100.0100, [id number], L500.2500 #### [facility] [address] [place], [address] GFR/1.73 sq M.predicted among non-blacks MDRD (S/P/Bld) [Vol rate/Area] 87 mL/min/{1.73_m2} Normal >60 [facility] Comment on above: Result Comment: mL/m in/1.73m2 CKD-EPI Creatinine Equation (2020) Performed By: #### L 100.0100, L501.5200, L500.2500 #### [facility] [address] [place], [address] Glucose [Mass/Vol] 106 mg/dL High 70-99 [facility] Comment on above: Performed By: #### L 100.0100, L501.5200, L500.2500 #### [facility] [address] [place], [address] Potassium [Moles/Vol] 4.7 mmol/L Normal 3.3-5.1 [facility] Comment on above: Performed By: #### L 100.0100, L501.5200, L500.2500 #### [facility] [address] [place], [address] Sodium [Moles/Vol] 138 mmol/L Normal 133-145 [facility] Comment on above: Performed By: #### L 100.0100, [id number], [id number] #### [facility] [address] [place], [address] Urea nitrogen [Mass/Vol] 16 mg/dL Normal 4-19 [facility] Comment on above: Performed By: #### L 100.0100, L501.5200, L500.2500 #### [facility] [address] [place], [address] Basophil percentageOrdered B y: Alysha Miguel on 12-01-2024 Basophils/100 WBC (Bld) 0.0 % 0-[address] [facility] CBC W/Diff, Automatedon 11-20 Absolute Lymph 0.71 X10 3/uL Low 0.83-4.51 [facility] Comment on above: Performed By: #### L 100.0100, L501.4020, L500.2500 #### [facility] [address] [place], [address] Absolute Neut 3.2 X10 3/uL Normal 2.0-7.7 [facility] Comment on above: Performed By: #### L 100.0100, [id number], L500.2500 #### [facility] [address] [place], [address] Basophils/100 WBC (Bld) 0.0 % Normal 0-[address] [facility] Comment on above: Performed By: #### L 100.0100, [id number], L500.2500 #### [facility] [address] [place], [address] Eosinophils/100 WBC (Bld) 4.9 % Normal 0-5 [facility] Comment on above: Performed By: #### L 100.0100, [id number], L500.2500 #### [facility] [address] [place], [address] Erythrocyte distribution width (RBC) [Ratio] 12.8 % Normal 11.6-14.6 [facility] Comment on above: Performed By: #### L 100.0100, [id number], L500.2500 #### [facility] [address] [place], [address] Hematocrit (Bld) [Volume fraction] 34.0 % Low 37-47 [facility] Comment on above: Performed By: #### L 100.0100, [id number], L500.2500 #### [facility] [address] [place], [address] Hemoglobin (Bld) [Mass/Vol] 10.8 g/dL Low 12.0-15.0 [facility] Comment on above: Performed By: #### L 100.0100, [id number], L500.2500 #### [facility] [address] [place], [address] IG% 1.100 High 0.0-0.9 [facility] Comment on above: Result Comment: IG% - Immature Granulocytes (promyelocytes, myelocytes and metamyelocytes) > 1% indicates that a LEFT SHIFT is Present. Performed By: #### L 100.0100, L501.4020, L500.2500 #### [facility] [address] [place], [address] Lymphocytes/100 WBC (Bld) 15.1 % Low 19-41 [facility] Comment on above: Performed By: #### L 100.0100, [id number], L500.2500 #### [facility] [address] [place], [address] MCH (RBC) [Entitic mass] 30.3 pg Normal 27.0-32.0 [facility] Comment on above: Performed By: #### L 100.0100, [id number], [id number] #### [facility] [address] [place], [address] MCHC (RBC) [Mass/Vol] 31.8 g/dL Low 32-36 [facility] Comment on above: Performed By: #### L 100.0100, [id number], L500.2500 #### [facility] [address] [place], [address] MCV (RBC) [Entitic vol] 95.2 fL Normal 81-[address] [facility] Comment on above: Performed By: #### L 100.0100, [id number], L500.2500 #### [facility] [address] [place], [address] Monocytes/100 WBC (Bld) 10.6 % High 0-[address] [facility] Comment on above: Performed By: #### L 100.0100, [id number], L500.2500 #### [facility] [address] [place], [address] Neutrophils/100 WBC (Bld) 68.3 % Normal 47-70 [facility] Comment on above: Performed By: #### L 100.0100, [id number], L500.2500 #### [facility] [address] [place], [address] Nucleated RBC (Bld) [#/Vol] 0 10*3/uL Normal 0-5 [facility] Comment on above: Performed By: #### L 100.0100, [id number], L500.2500 #### [facility] [address] [place], [address] Platelet mean volume (Bld) [Entitic vol] 10.5 fL Normal 6.2-12.0 [facility] Comment on above: Performed By: #### L 100.0100, [id number], L500.2500 #### [facility] [address] [place], [address] Platelets (Bld) [#/Vol] 129 10*3/uL Low 150-450 [facility] Comment on above: Performed By: #### L 100.0100, [id number], L500.2500 #### [facility] [address] [place], [address] RBC (Bld) [#/Vol] 3.57 10*6/uL Low 4.2-5.4 [facility] Comment on above: Performed By: #### L 100.0100, [id number], L500.2500 #### [facility] [address] [place], [address] RDW SD 44.6 fl High 35.1-43.9 [facility] Comment on above: Performed By: #### L 100.0100, [id number], L500.2500 #### [facility] [address] [place], [address] WBC (Bld) [#/Vol] 4.7 10*3/uL Normal 4.4-11.0 [facility] Comment on above: Performed By: #### L 100.0100, [id number], L500.2500 #### [facility] [address] [place], [address] Carbon dioxide, total [Moles /volume] in Central venous bloodOrdered By: Alysha Miguel on 12-01-2024 CO2 [Moles/Vol] 23.0 mmol/L 21.0-32.0 [facility] Chloride assayOrdered By: Jose Miguel on 12-01-2024 Chloride [Moles/Vol] 104 mmol/L 98-108 [facility] Culture, Blood (WB)on 2024 CUB Blood cultures x2, from two different sites No growth in 5 days. Normal [facility] Comment on above: Performed By: #### L 100.0100, L501.4020, L500.2500 #### [facility] [address] [place], [address] Eosinophil percentageOrdered By: Alysha Miguel on 12-01-2024 Eosinophils/100 WBC (Bld) 4.9 % 0-5 [facility] Erythrocyte distribution wid th ratioOrdered By: Alysha Miguel on 12-01-2024 Erythrocyte distribution width (RBC) [Ratio] 12.8 % 11.6-14.6 [facility] Erythrocyte distribution wid th standard deviationOrdered By: Alysha Miguel on 12-01-2024 Erythrocyte distribution width (RBC) [Entitic vol] 44.6 fL High 35.1-43.9 [facility] Estimation of creatinine ping aranceOrdered By: Alysha Miguel on 12-01-2024 Estimated Creatinine Clearance Calc 64.53 ml/min 50-250 [facility] GFR/1.73 sq M.predicted germán g non-blacks MDRD (S/P/Bld) [Vol rate/Area]Ordered By: Alysha Miguel on 12-01-2024 Estimated GFR (MDRD) Non-Af Amer 87 >60 [facility] Comment on above: mL/min/1.73m2 CKD-EP I Creatinine Equation (2020) Hematocrit Auto (Bld) [Volum e fraction]Ordered By: Alysha Miguel on 12-01-2024 Hematocrit (Bld) [Volume fraction] 34.0 % Low 37-47 [facility] Hemoglobin measurementOrdere d By: Alysha Miguel on 12-01-2024 Hemoglobin (Bld) [Mass/Vol] 10.8 g/dL Low 12.0-15.0 [facility] Immature granulocytes/100 WB C Auto (Bld)Ordered By: Alysha Miguel on 12-01-2024 Immature granulocytes/100 WBC (Bld) 1.100 % High 0.0-0.9 [facility] Comment on above: IG% - Immature Granu locytes (promyelocytes, myelocytes and metamyelocytes) > 1% indicates that a LEFT SHIFT is Present. Lymphocytes Auto (Unsp spec) [#/Vol]Ordered By: Alysha Miguel on 12-01-2024 Lymphocytes (Bld) [#/Vol] 0.71 10*3/uL Low 0.83-4.51 [facility] Lymphocytes/100 WBC Auto (Un sp spec)Ordered By: Alysha Miguel on 12-01-2024 Lymphocytes/100 WBC (Bld) 15.1 % Low 19-41 [facility] MCV (mean corpuscular volume ) determinationOrdered By: Alysha Miguel on 12-01-2024 MCV (RBC) [Entitic vol] 95.2 fL 81-[address] [facility] Mean corpuscular hemoglobin (MCH) determinationOrdered By: Alysha Miguel on 12-01-2024 MCH (RBC) [Entitic mass] 30.3 pg 27.0-32.0 [facility] Mean corpuscular hemoglobin concentration (MCHC) determinationOrdered By: Alysha Miguel on 12-01-2024 MCHC (RBC) [Mass/Vol] 31.8 g/dL Low 32-36 [facility] Mean platelet volume determi nationOrdered By: Alysha Miguel on 12-01-2024 Platelet mean volume (Bld) [Entitic vol] 10.5 fL 6.2-12.0 [facility] Monocyte percentageOrdered B y: Alysha Miguel on 12-01-2024 Monocytes/100 WBC (Bld) 10.6 % High 0-[address] [facility] Neutrophil percentageOrdered By: Alysha Miguel on 12-01-2024 Neutrophils/100 WBC (Bld) 68.3 % 47-70 [facility] Nucleated red blood cell per centageOrdered By: Alysha Miguel on 12-01-2024 Nucleated RBC/100 WBC (Bld) [Ratio] 0 % 0-5 [facility] Platelet countOrdered By: Jose Miguel on 12-01-2024 Platelets (Bld) [#/Vol] 129 10*3/uL Low 150-450 [facility] Potassium (Unsp spec) [Mass/ Vol]Ordered By: Alysha Miguel on 12-01-2024 Potassium [Moles/Vol] 4.7 mmol/L 3.3-5.1 [facility] RBC Auto (Bld) [#/Vol]Ordere d By: Alysha Miguel on 12-01-2024 RBC (Bld) [#/Vol] 3.57 10*6/uL Low 4.2-5.4 [facility] Serum creatinine measurement (mass/volume)Ordered By: Alysha Miguel on 12-01-2024 Creatinine [Mass/Vol] 0.70 mg/dL 0.70-1.20 [facility] Serum glucose measurement (m ass/volume)Ordered By: Alysha Miguel on 12-01-2024 Glucose [Mass/Vol] 106 mg/dL High 70-99 [facility] Serum or plasma calcium cirilo urement (mass/volume)Ordered By: Alysha Miguel on 12-01-2024 Calcium [Mass/Vol] 9.2 mg/dL 7.6-11.0 [facility] Serum or plasma urea nitroge n measurement (mass/volume)Ordered By: Alysha Miguel on 12-01-2024 Urea nitrogen [Mass/Vol] 16 mg/dL 4-19 [facility] Sodium levelOrdered By: Kael Miguel on 12-01-2024 Sodium [Moles/Vol] 138 mmol/L 133-145 [facility] White blood cell (WBC) count Ordered By: Alysha Miguel on 12-01-2024 WBC (Bld) [#/Vol] 4.7 10*3/uL 4.4-11.0 [facility] Basic Metabolic Profile (BMP )on 11-30-2024 BUN/CRE 23.0 RATIO High 10-20 [facility] Comment on above: Performed By: #### L 100.0100, L501.5200, L500.2500 #### [facility] [address] [place], [address] Calcium [Mass/Vol] 8.8 mg/dL Normal 7.6-11.0 [facility] Comment on above: Performed By: #### L 100.0100, L501.5200, L500.2500 #### [facility] [address] [place], [address] Chloride [Moles/Vol] 104 mmol/L Normal 98-108 [facility] Comment on above: Performed By: #### L 100.0100, L501.5200, L500.2500 #### [facility] [address] [place], [address] CO2 [Moles/Vol] 21.9 mmol/L Normal 21.0-32.0 [facility] Comment on above: Performed By: #### L 100.0100, L501.5200, L500.2500 #### [facility] [address] [place], [address] Creatinine [Mass/Vol] 0.77 mg/dL Normal 0.70-1.20 [facility] Comment on above: Performed By: #### L 100.0100, L501.5200, L500.2500 #### [facility] [address] [place], [address] ECRCL 64.53 ml/min Normal 50-250 [facility] Comment on above: Performed By: #### L 100.0100, L501.5200, L500.2500 #### [facility] [address] [place], [address] GAP 11 Normal 5-15 [facility] Comment on above: Performed By: #### L 100.0100, L501.5200, L500.2500 #### [facility] [address] [place], [address] GFR/1.73 sq M.predicted among non-blacks MDRD (S/P/Bld) [Vol rate/Area] 77 mL/min/{1.73_m2} Normal >60 [facility] Comment on above: Result Comment: mL/m in/1.73m2 CKD-EPI Creatinine Equation (2020) Performed By: #### L 100.0100, L501.5200, L500.2500 #### [facility] [address] [place], [address] Glucose [Mass/Vol] 114 mg/dL High 70-99 [facility] Comment on above: Performed By: #### L 100.0100, L501.5200, L500.2500 #### [facility] [address] [place], [address] Potassium [Moles/Vol] 4.2 mmol/L Normal 3.3-5.1 [facility] Comment on above: Performed By: #### L 100.0100, L501.5200, L500.2500 #### [facility] [address] [place], [address] Sodium [Moles/Vol] 136 mmol/L Normal 133-145 [facility] Comment on above: Performed By: #### L 100.0100, L501.5200, L500.2500 #### [facility] [address] [place], [address] Urea nitrogen [Mass/Vol] 18 mg/dL Normal 4-19 [facility] Comment on above: Performed By: #### L 100.0100, L501.5200, L500.2500 #### [facility] [address] [place], [address] CBC W/Diff, Automatedon 11-20 Absolute Lymph 0.88 X10 3/uL Normal 0.83-4.51 [facility] Comment on above: Performed By: #### L 100.0100, L501.5200, L500.2500 #### [facility] [address] [place], [address] Absolute Neut 3.2 X10 3/uL Normal 2.0-7.7 [facility] Comment on above: Performed By: #### L 100.0100, L501.5200, L500.2500 #### [facility] [address] [place], [address] Basophils/100 WBC (Bld) 0.2 % Normal 0-[address] [facility] Comment on above: Performed By: #### L 100.0100, L501.5200, L500.2500 #### [facility] [address] [place], [address] Eosinophils/100 WBC (Bld) 3.5 % Normal 0-5 [facility] Comment on above: Performed By: #### L 100.0100, L501.5200, L500.2500 #### [facility] [address] [place], [address] Erythrocyte distribution width (RBC) [Ratio] 12.9 % Normal 11.6-14.6 [facility] Comment on above: Performed By: #### L 100.0100, L501.5200, L500.2500 #### [facility] [address] [place], [address] Hematocrit (Bld) [Volume fraction] 32.4 % Low 37-47 [facility] Comment on above: Performed By: #### L 100.0100, L501.5200, L500.2500 #### [facility] [address] [place], [address] Hemoglobin (Bld) [Mass/Vol] 10.4 g/dL Low 12.0-15.0 [facility] Comment on above: Performed By: #### L 100.0100, L501.5200, L500.2500 #### [facility] [address] [place], [address] IG% 0.800 Normal 0.0-0.9 [facility] Comment on above: Result Comment: IG% - Immature Granulocytes (promyelocytes, myelocytes and metamyelocytes) > 1% indicates that a LEFT SHIFT is Present. Performed By: #### L 100.0100, L501.5200, L500.2500 #### [facility] [address] [place], [address] Lymphocytes/100 WBC (Bld) 18.2 % Low 19-41 [facility] Comment on above: Performed By: #### L 100.0100, L501.5200, L500.2500 #### [facility] [address] [place], [address] MCH (RBC) [Entitic mass] 30.6 pg Normal 27.0-32.0 [facility] Comment on above: Performed By: #### L 100.0100, L501.5200, L500.2500 #### [facility] [address] [place], [address] MCHC (RBC) [Mass/Vol] 32.1 g/dL Normal 32-36 [facility] Comment on above: Performed By: #### L 100.0100, L501.5200, L500.2500 #### [facility] [address] [place], [address] MCV (RBC) [Entitic vol] 95.3 fL Normal 81-99 [facility] Comment on above: Performed By: #### L 100.0100, L501.5200, L500.2500 #### [facility] [address] [place], [address] Monocytes/100 WBC (Bld) 10.3 % High 0-[address] [facility] Comment on above: Performed By: #### L 100.0100, L501.5200, L500.2500 #### [facility] [address] [place], [address] Neutrophils/100 WBC (Bld) 67.0 % Normal 47-70 [facility] Comment on above: Performed By: #### L 100.0100, L501.5200, L500.2500 #### [facility] [address] [place], [address] Nucleated RBC (Bld) [#/Vol] 0 10*3/uL Normal 0-5 [facility] Comment on above: Performed By: #### L 100.0100, L501.5200, L500.2500 #### [facility] [address] [place], [address] Platelet mean volume (Bld) [Entitic vol] 10.3 fL Normal 6.2-12.0 [facility] Comment on above: Performed By: #### L 100.0100, L501.5200, L500.2500 #### [facility] [address] [place], [address] Platelets (Bld) [#/Vol] 126 10*3/uL Low 150-450 [facility] Comment on above: Performed By: #### L 100.0100, L501.5200, L500.2500 #### [facility] [address] [place], [address] RBC (Bld) [#/Vol] 3.40 10*6/uL Low 4.2-5.4 [facility] Comment on above: Performed By: #### L 100.0100, L501.5200, L500.2500 #### [facility] [address] [place], [address] RDW SD 44.5 fl High 35.1-43.9 [facility] Comment on above: Performed By: #### L 100.0100, L501.5200, L500.2500 #### [facility] [address] [place], [address] WBC (Bld) [#/Vol] 4.8 10*3/uL Normal 4.4-11.0 [facility] Comment on above: Performed By: #### L 100.0100, L501.5200, L500.2500 #### [facility] [address] [place], [address] Urine Cultureon 11-30-2024 URC Mixed Gram Pos Gram Neg Org [employer] Count 80,000-100,000 MIXC Mixed contaminants. Submit a new specimen if indicated. Normal [facility] Comment on above: Performed By: #### M 100.2200, L400.0001 ####[facility] [address] [place], [address] Basic Metabolic Profile (BMP )on 11-29-2024 BUN/CRE 25.7 RATIO High 10-20 [facility] Comment on above: Performed By: #### L 100.0100, L501.2300, L500.2500 ####[facility] [address] [place], [address] Calcium [Mass/Vol] 8.7 mg/dL Normal 7.6-11.0 [facility] Comment on above: Performed By: #### L 100.0100, L501.2300, L500.2500 ####[facility] [address] [place], [address] Chloride [Moles/Vol] 105 mmol/L Normal 98-108 [facility] Comment on above: Performed By: #### L 100.0100, L501.2300, L500.2500 ####[facility] [address] [place], [address] CO2 [Moles/Vol] 22.4 mmol/L Normal 21.0-32.0 [facility] Comment on above: Performed By: #### L 100.0100, L501.2300, L500.2500 ####[facility] [address] [place], [address] Creatinine [Mass/Vol] 0.84 mg/dL Normal 0.70-1.20 [facility] Comment on above: Performed By: #### L 100.0100, L501.2300, L500.2500 ####[facility] [address] [place], [address] ECRCL 61.46 ml/min Normal 50-250 [facility] Comment on above: Performed By: #### L 100.0100, L501.2300, L500.2500 ####[facility] [address] [place], [address] GAP 10 Normal 5-15 [facility] Comment on above: Performed By: #### L 100.0100, L501.2300, L500.2500 ####[facility] [address] [place], [address] GFR/1.73 sq M.predicted among non-blacks MDRD (S/P/Bld) [Vol rate/Area] 70 mL/min/{1.73_m2} Normal >60 [facility] Comment on above: Result Comment: mL/m in/1.73m2 CKD-EPI Creatinine Equation (2020) Performed By: #### L 100.0100, L501.2300, L500.2500 ####[facility] [address] [place], [address] Glucose [Mass/Vol] 117 mg/dL High 70-99 [facility] Comment on above: Performed By: #### L 100.0100, L501.2300, L500.2500 ####[facility] [address] [place], [address] Potassium [Moles/Vol] 4.2 mmol/L Normal 3.3-5.1 [facility] Comment on above: Performed By: #### L 100.0100, L501.2300, L500.2500 ####[facility] [address] [place], [address] Sodium [Moles/Vol] 137 mmol/L Normal 133-145 [facility] Comment on above: Performed By: #### L 100.0100, L501.2300, L500.2500 ####[facility] [address] [place], [address] Urea nitrogen [Mass/Vol] 22 mg/dL High 4-19 [facility] Comment on above: Performed By: #### L 100.0100, L501.2300, L500.2500 ####[facility] [address] [place], [address] Bilirubin Test strip Ql (U)O rdered By: Alysha Miguel on 11-29-2024 Bilirubin Ql (U) Negative Negative [facility] CBC W/Diff, Automatedon 11-20 Absolute Lymph 0.87 X10 3/uL Normal 0.83-4.51 [facility] Comment on above: Performed By: #### L 100.0100, L501.2300, L500.2500 ####[facility] [address] [place], [address] Absolute Neut 2.7 X10 3/uL Normal 2.0-7.7 [facility] Comment on above: Performed By: #### L 100.0100, L501.2300, L500.2500 ####[facility] [address] [place], [address] Basophils/100 WBC (Bld) 0.2 % Normal 0-[address] [facility] Comment on above: Performed By: #### L 100.0100, L501.2300, L500.2500 ####[facility] [address] [place], [address] Eosinophils/100 WBC (Bld) 3.0 % Normal 0-5 [facility] Comment on above: Performed By: #### L 100.0100, L501.2300, L500.2500 ####[facility] [address] [place], [address] Erythrocyte distribution width (RBC) [Ratio] 13.0 % Normal 11.6-14.6 [facility] Comment on above: Performed By: #### L 100.0100, L501.2300, L500.2500 ####[facility] [address] [place], [address] Hematocrit (Bld) [Volume fraction] 31.7 % Low 37-47 [facility] Comment on above: Performed By: #### L 100.0100, L501.2300, L500.2500 ####[facility] [address] [place], [address] Hemoglobin (Bld) [Mass/Vol] 10.0 g/dL Low 12.0-15.0 [facility] Comment on above: Performed By: #### L 100.0100, L501.2300, L500.2500 ####[facility] [address] [place], [address] IG% 1.200 High 0.0-0.9 [facility] Comment on above: Result Comment: IG% - Immature Granulocytes (promyelocytes, myelocytes and metamyelocytes) > 1% indicates that a LEFT SHIFT is Present. Performed By: #### L 100.0100, L501.2300, L500.2500 ####[facility] [address] [place], [address] Lymphocytes/100 WBC (Bld) 20.1 % Normal 19-41 [facility] Comment on above: Performed By: #### L 100.0100, L501.2300, L500.2500 ####[facility] [address] [place], [address] MCH (RBC) [Entitic mass] 30.4 pg Normal 27.0-32.0 [facility] Comment on above: Performed By: #### L 100.0100, L501.2300, L500.2500 ####[facility] [address] [place], [address] MCHC (RBC) [Mass/Vol] 31.5 g/dL Low 32-36 [facility] Comment on above: Performed By: #### L 100.0100, L501.2300, L500.2500 ####[facility] [address] [place], [address] MCV (RBC) [Entitic vol] 96.4 fL Normal 81-[address] [facility] Comment on above: Performed By: #### L 100.0100, L501.2300, L500.2500 ####[facility] [address] [place], [address] Monocytes/100 WBC (Bld) 12.7 % High 0-[address] [facility] Comment on above: Performed By: #### L 100.0100, L501.2300, L500.2500 ####[facility] [address] [place], [address] Neutrophils/100 WBC (Bld) 62.8 % Normal 47-70 [facility] Comment on above: Performed By: #### L 100.0100, L501.2300, L500.2500 ####[facility] [address] [place], [address] Nucleated RBC (Bld) [#/Vol] 0 10*3/uL Normal 0-5 [facility] Comment on above: Performed By: #### L 100.0100, L501.2300, L500.2500 ####[facility] [address] [place], [address] Platelet mean volume (Bld) [Entitic vol] 10.3 fL Normal 6.2-12.0 [facility] Comment on above: Performed By: #### L 100.0100, L501.2300, L500.2500 ####[facility] [address] [place], [address] Platelets (Bld) [#/Vol] 117 10*3/uL Low 150-450 [facility] Comment on above: Performed By: #### L 100.0100, L501.2300, L500.2500 ####[facility] [address] [place], [address] RBC (Bld) [#/Vol] 3.29 10*6/uL Low 4.2-5.4 [facility] Comment on above: Performed By: #### L 100.0100, L501.2300, L500.2500 ####[facility] [address] [place], [address] RDW SD 46.3 fl High 35.1-43.9 [facility] Comment on above: Performed By: #### L 100.0100, L501.2300, L500.2500 ####[facility] [address] [place], [address] WBC (Bld) [#/Vol] 4.3 10*3/uL Low 4.4-11.0 [facility] Comment on above: Performed By: #### L 100.0100, L501.2300, L500.2500 ####[facility] [address] [place], [address] Chest 1 View (Portable)on Chest 1 View (Portable) [facility] Imaging Services [address] [place] [address] Chest 1 View (Portable) MR#: [id number] Acct: [id number] Name: LISA UP Rep #: [id number] : 1945 F 79 From: Wilner Li MD PCP: Dr. Sylvia Lizama MD Status: ADM IN Study: Chest 1 View (Portable) Date of Exam: 11/29/24 Exam# [id number] Ordering Dr: Alysha Miguel MD EXAM: XR Chest, 1 View CLINICAL INDICATION: TECHNIQUE: Frontal view of the chest. COMPARISON: No relevant prior studies available. FINDINGS: LUNGS AND PLEURAL SPACES: Unremarkable. No consolidation. No pneumothorax. HEART: Unremarkable. No cardiomegaly. MEDIASTINUM: Unremarkable. Normal mediastinal contour. BONES/JOINTS: Unremarkable. No acute fracture. RAD/Chest 1 View (Portable) IMPRESSION: No acute cardiopulmonary process. Reading Location: [facility] CC: Dr. Alysha Miguel MD; Dr. Sylvia Lizama MD Oxyhydrogen Welder: Signed Normal [facility] Epithelial cells.squamous LM Ql (Urine sed)Ordered By: Alysha Miguel on 11-29-2024 Epithelial cells.squamous LM.HPF (Urine sed) [#/Area] 10 /[HPF] 5-10 [facility] Glucose Ql (U)Ordered By: Jose Miguel on 11-29-2024 Urine Glucose (UA) Normal mg/dl Normal [facility] Ketones Test strip Ql (U)Ord ered By: Alysha Miguel on 11-29-2024 Ketones Ql (U) Negative Negative [facility] Microscopic analysis of urin e for red blood cells (RBC)Ordered By: Alysha Miguel on 11-29-2024 Urine RBC 0-5 SEEN /hpf 0-5 [facility] Mucus LM Ql (Urine sed)Order ed By: Alysha Miguel on 11-29-2024 Mucus Ql (Urine sed) 0 SEEN /hpf [facility] Nitrite Test strip Ql (U)Ord ered By: Alysha Miguel on 11-29-2024 Nitrite Ql (U) Positive High Negative [facility] Phosphoruson 11-29-2024 Phosphate [Mass/Vol] 3.8 mg/dL Normal 2.7-4.5 [facility] Comment on above: Performed By: #### L 100.0100, L501.2300, L500.2500 ####[facility] [address] [place], [address] Protein Test strip Ql (U)Ord ered By: Alysha Miguel on 11-29-2024 Protein Ql (U) 15 mg/dl High Negative [facility] RESPIRATORY PANEL MOLECULARo n 11-29-2024 RP PANEL ADENOVIRUS Not Detected INFLUENZA A Not Detected INFLUENZA A (SUBTYPE H1) Not Detected INFLUENZA A (SUBTYPE H3) Not Detected INFLUENZA B Not Detected HUMAN METAPHNEUMO Not Detected PARAINFLUENZA 1 Not Detected PARAINFLUENZA 2 Not Detected PARAINFLUENZA 3 Not Detected PARAINFLUENZA 4 Not Detected RHINOVIRUS Not Detected RSV A Not Detected RSV B Not Detected Normal [facility] Comment on above: Performed By: #### L 100.0100, L501.4020, L500.2500 #### [facility] [address] [place], [address] Respiratory pathogens DNA an d RNA panel ANALI+probe (Resp)Ordered By: Alysha Miguel on 11-29-2024 Respiratory Panel (PCR) [facility] Serum phosphorus measurement Ordered By: Alysha Miguel on 11-29-2024 Phosphorus Level 3.8 mg/dL 2.7-4.5 [facility] Transitional cells LM Ql (Ur ine sed)Ordered By: Alysha Miguel on 11-29-2024 Urine Transitional Epithelial Cells 0 SEEN /hpf 0-5 [facility] Urinalysis, Completeon 11-29 EPI,TRANSITION 0 SEEN Normal 0-5 [facility] Comment on above: Order Comment: CLEAN CATCH Performed By: #### M 100.2200, L400.0001 ####[facility] [address] [place], [address] RBC 0-5 SEEN Normal 0-5 [facility] Comment on above: Order Comment: CLEAN CATCH Performed By: #### M 100.2200, L400.0001 ####[facility] [address] [place], [address] BACTERIA 3+ /hpf Normal None Seen [facility] Comment on above: Order Comment: CLEAN CATCH Performed By: #### M 100.2200, L400.0001 ####[facility] [address] [place], [address] WBC 5-10 SEEN Normal 0-5 [facility] Comment on above: Order Comment: CLEAN CATCH Performed By: #### M 100.2200, L400.0001 ####[facility] [address] [place], [address] EPI,SQUAMOUS 10-25 SEEN Normal 5-10 [facility] Comment on above: Order Comment: CLEAN CATCH Performed By: #### M 100.2200, L400.0001 ####[facility] [address] [place], [address] Mucus Ql (Urine sed) 0 SEEN Normal [facility] Comment on above: Order Comment: CLEAN CATCH Performed By: #### M 100.2200, L400.0001 ####[facility] [address] [place], [address] Urine blood detectionOrdered By: Alysha Miguel on 11-29-2024 Urine Occult Blood Negative Negative [facility] Urine clarityOrdered By: Riki Miguel on 11-29-2024 Clarity (U) Clear Clear [facility] Urine color determinationOrd ered By: Alysha Miguel on 11-29-2024 Color (U) Yellow Yellow [facility] Urine cultureOrdered By: Riki Miguel on 11-29-2024 Bacteria identified Cx Nom (U) Mixed Gram Pos & Gram Neg Org Abnormal [facility] Urine leukocyte esterase det ection by dipstickOrdered By: Alysha Miguel on 11-29-2024 Leukocyte esterase Test strip Ql (U) 500 /ul High Negative [facility] Urine pHOrdered By: Alysha connolly on 11-29-2024 pH (U) 5.0 [pH] 5.0 - 8.0 [facility] Urine sediment bacteria coun t by microscopy (number/high power field)Ordered By: Alysha Miguel on 11-29-2024 Bacteria LM.HPF (Urine sed) [#/Area] 3 /[HPF] None Seen [facility] Urine specific gravity measu rementOrdered By: Alysha Miguel on 11-29-2024 Specific gravity (U) [Rel density] 1.020 1.002-1.030 [facility] Urobilinogen Ql (U)Ordered B y: Alysha Miguel on 11-29-2024 Urine Urobilinogen Normal mg/dl Normal [facility] White blood cell countOrdere d By: Alysha Miguel on 11-29-2024 Urine WBC 5-10 SEEN /hpf 0-5 [facility] Bilirubin, totalOrdered By: Alysha Miguel on 11-28-2024 Bilirubin [Mass/Vol] 0.28 mg/dL Normal 0.00-1.30 [facility] Comment on above: Performed By: #### L 100.0100, L501.4020, L500.2500 #### [facility] [address] [place], [address] CBC-Complete Blood Cnt No Di ffon 11-28-2024 Erythrocyte distribution width (RBC) [Ratio] 12.9 % Normal 11.6-14.6 [facility] Comment on above: Performed By: #### L 100.0100, L501.4020, L500.2500 #### [facility] [address] [place], [address] Hematocrit (Bld) [Volume fraction] 35.1 % Low 37-47 [facility] Comment on above: Performed By: #### L 100.0100, L501.4020, L500.2500 #### [facility] [address] [place], [address] Hemoglobin (Bld) [Mass/Vol] 11.1 g/dL Low 12.0-15.0 [facility] Comment on above: Performed By: #### L 100.0100, L501.4020, L500.2500 #### [facility] [address] [place], [address] MCH (RBC) [Entitic mass] 30.7 pg Normal 27.0-32.0 [facility] Comment on above: Performed By: #### L 100.0100, L501.4020, L500.2500 #### [facility] [address] [place], [address] MCHC (RBC) [Mass/Vol] 31.6 g/dL Low 32-36 [facility] Comment on above: Performed By: #### L 100.0100, L501.4020, L500.2500 #### [facility] [address] [place], [address] MCV (RBC) [Entitic vol] 97.0 fL Normal 81-[address] [facility] Comment on above: Performed By: #### L 100.0100, L501.4020, L500.2500 #### [facility] [address] [place], [address] Platelet mean volume (Bld) [Entitic vol] 10.4 fL Normal 6.2-12.0 [facility] Comment on above: Performed By: #### L 100.0100, L501.4020, L500.2500 #### [facility] [address] [place], [address] Platelets (Bld) [#/Vol] 130 10*3/uL Low 150-450 [facility] Comment on above: Performed By: #### L 100.0100, L501.4020, L500.2500 #### [facility] [address] [place], [address] RBC (Bld) [#/Vol] 3.62 10*6/uL Low 4.2-5.4 [facility] Comment on above: Performed By: #### L 100.0100, L501.4020, L500.2500 #### [facility] [address] [place], [address] RDW SD 45.7 fl High 35.1-43.9 [facility] Comment on above: Performed By: #### L 100.0100, L501.4020, L500.2500 #### [facility] [address] [place], [address] WBC (Bld) [#/Vol] 4.5 10*3/uL Normal 4.4-11.0 [facility] Comment on above: Performed By: #### L 100.0100, L501.4020, L500.2500 #### [facility] [address] [place], [address] Comprehensive Metabolic Prof ilon 11-28-2024 ALK PHOS 56 U/L Normal 35-104 [facility] Comment on above: Performed By: #### L 100.0100, L501.4020, L500.2500 #### [facility] [address] [place], [address] BUN/CRE 19.4 RATIO Normal 10-20 [facility] Comment on above: Performed By: #### L 100.0100, L501.4020, L500.2500 #### [facility] [address] [place], [address] Calcium [Mass/Vol] 8.9 mg/dL Normal 7.6-11.0 [facility] Comment on above: Performed By: #### L 100.0100, L501.4020, L500.2500 #### [facility] [address] [place], [address] Chloride [Moles/Vol] 103 mmol/L Normal 98-108 [facility] Comment on above: Performed By: #### L 100.0100, L501.4020, L500.2500 #### [facility] [address] [place], [address] CO2 [Moles/Vol] 24.1 mmol/L Normal 21.0-32.0 [facility] Comment on above: Performed By: #### L 100.0100, L501.4020, L500.2500 #### [facility] [address] [place], [address] Creatinine [Mass/Vol] 0.99 mg/dL Normal 0.70-1.20 [facility] Comment on above: Performed By: #### L 100.0100, L501.4020, L500.2500 #### [facility] [address] [place], [address] ECRCL 52.15 ml/min Normal 50-250 [facility] Comment on above: Performed By: #### L 100.0100, L501.4020, L500.2500 #### [facility] [address] [place], [address] GAP 11 Normal 5-15 [facility] Comment on above: Performed By: #### L 100.0100, L501.4020, L500.2500 #### [facility] [address] [place], [address] GFR/1.73 sq M.predicted among non-blacks MDRD (S/P/Bld) [Vol rate/Area] 58 mL/min/{1.73_m2} Low >60 [facility] Comment on above: Result Comment: mL/m in/1.73m2 CKD-EPI Creatinine Equation (2020) Performed By: #### L 100.0100, L501.4020, L500.2500 #### [facility] [address] [place], [address] Glucose [Mass/Vol] 113 mg/dL High 70-99 [facility] Comment on above: Performed By: #### L 100.0100, L501.4020, L500.2500 #### [facility] [address] [place], [address] Potassium [Moles/Vol] 4.2 mmol/L Normal 3.3-5.1 [facility] Comment on above: Result Comment: Hemo lysis present, Results??could be affected. ?? Performed By: #### L 100.0100, L501.4020, L500.2500 #### [facility] [address] [place], [address] Sodium [Moles/Vol] 138 mmol/L Normal 133-145 [facility] Comment on above: Performed By: #### L 100.0100, L501.4020, L500.2500 #### [facility] [address] [place], [address] T PROT 5.7 g/dL Low 5.9-8.4 [facility] Comment on above: Performed By: #### L 100.0100, L501.4020, L500.2500 #### [facility] [address] [place], [address] Urea nitrogen [Mass/Vol] 19 mg/dL Normal 4-19 [facility] Comment on above: Performed By: #### L 100.0100, L501.4020, L500.2500 #### [facility] [address] [place], [address] Comprehensive Metabolic Prof ilOrdered By: Alysha Miguel on 11-28-2024 AST [Catalytic activity/Vol] 28 U/L Normal <=31 [facility] Comment on above: Performed By: #### L 100.0100, L501.4020, L500.2500 #### [facility] [address] [place], [address] Magnesium measurement (mass/ volume)Ordered By: Alysha Miguel on 11-28-2024 Magnesium [Mass/Vol] 2.0 mg/dL Normal 1.5-2.2 [facility] Comment on above: Performed By: #### L 100.0100, L501.4020, L500.2500 #### [facility] [address] [place], [address] Serum globulin measurementOr dered By: Alysha Miguel on 11-28-2024 Globulin (S) [Mass/Vol] 2.5 g/dL Normal 2.2-4.2 [facility] Comment on above: Performed By: #### L 100.0100, L501.4020, L500.2500 #### [facility] [address] [place], [address] Serum or plasma alanine rice otransferase (ALT) measurementOrdered By: Alysha Miguel on 11-28-2024 ALT [Catalytic activity/Vol] 5 U/L Normal <=34 [facility] Comment on above: Performed By: #### L 100.0100, L501.4020, L500.2500 #### [facility] [address] [place], [address] Serum or plasma albumin cirilo urement (mass/volume)Ordered By: Alysha Miguel on 11-28-2024 Albumin [Mass/Vol] 3.3 g/dL Low 3.4-4.8 [facility] Comment on above: Performed By: #### L 100.0100, L501.4020, L500.2500 #### [facility] [address] [place], [address] Serum or plasma albumin/glob ulin mass ratioOrdered By: Alysha Miguel on 11-28-2024 Albumin/Globulin [Mass ratio] 1.3 {ratio} Normal 0.9-2.4 [facility] Comment on above: Performed By: #### L 100.0100, L501.4020, L500.2500 #### [facility] [address] [place], [address] Serum or plasma alkaline anitha sphatase measurementOrdered By: Alysha Miguel on 11-28-2024 ALP [Catalytic activity/Vol] 56 U/L 35-104 [facility] Total proteinOrdered By: Riki Miguel on 11-28-2024 Protein [Mass/Vol] 5.7 g/dL Low 5.9-8.4 [facility] Basic Metabolic Profile (BMP )on 11-27-2024 BUN/CRE 16.7 RATIO Normal 10-20 [facility] Comment on above: Performed By: #### L 100.0100, L501.4020, L500.2500 #### [facility] [address] [place], [address] Calcium [Mass/Vol] 8.6 mg/dL Normal 7.6-11.0 [facility] Comment on above: Performed By: #### L 100.0100, L501.4020, L500.2500 #### [facility] [address] [place], [address] Chloride [Moles/Vol] 104 mmol/L Normal 98-108 [facility] Comment on above: Performed By: #### L 100.0100, L501.4020, L500.2500 #### [facility] [address] [place], [address] CO2 [Moles/Vol] 24.1 mmol/L Normal 21.0-32.0 [facility] Comment on above: Performed By: #### L 100.0100, L501.4020, L500.2500 #### [facility] [address] [place], [address] Creatinine [Mass/Vol] 0.80 mg/dL Normal 0.70-1.20 [facility] Comment on above: Performed By: #### L 100.0100, L501.4020, L500.2500 #### [facility] [address] [place], [address] ECRCL 64.53 ml/min Normal 50-250 [facility] Comment on above: Performed By: #### L 100.0100, L501.4020, L500.2500 #### [facility] [address] [place], [address] GAP 11 Normal 5-15 [facility] Comment on above: Performed By: #### L 100.0100, L501.4020, L500.2500 #### [facility] [address] [place], [address] GFR/1.73 sq M.predicted among non-blacks MDRD (S/P/Bld) [Vol rate/Area] 75 mL/min/{1.73_m2} Normal >60 [facility] Comment on above: Result Comment: mL/m in/1.73m2 CKD-EPI Creatinine Equation (2020) Performed By: #### L 100.0100, L501.4020, L500.2500 #### [facility] [address] [place], [address] Glucose [Mass/Vol] 101 mg/dL High 70-99 [facility] Comment on above: Performed By: #### L 100.0100, L501.4020, L500.2500 #### [facility] [address] [place], [address] Potassium [Moles/Vol] 4.0 mmol/L Normal 3.3-5.1 [facility] Comment on above: Performed By: #### L 100.0100, L501.4020, L500.2500 #### [facility] [address] [place], [address] Sodium [Moles/Vol] 139 mmol/L Normal 133-145 [facility] Comment on above: Performed By: #### L 100.0100, L501.4020, L500.2500 #### [facility] [address] [place], [address] Urea nitrogen [Mass/Vol] 13 mg/dL Normal 4-19 [facility] Comment on above: Performed By: #### L 100.0100, L501.4020, L500.2500 #### [facility] [address] [place], [address] CBC-Complete Blood Cnt No Di ffon 11-27-2024 Erythrocyte distribution width (RBC) [Ratio] 12.9 % Normal 11.6-14.6 [facility] Comment on above: Performed By: #### L 100.0100, L501.4020, L500.2500 #### [facility] [address] [place], [address] Hematocrit (Bld) [Volume fraction] 33.8 % Low 37-47 [facility] Comment on above: Performed By: #### L 100.0100, L501.4020, L500.2500 #### [facility] [address] [place], [address] Hemoglobin (Bld) [Mass/Vol] 11.0 g/dL Low 12.0-15.0 [facility] Comment on above: Performed By: #### L 100.0100, L501.4020, L500.2500 #### [facility] [address] [place], [address] MCH (RBC) [Entitic mass] 30.8 pg Normal 27.0-32.0 [facility] Comment on above: Performed By: #### L 100.0100, L501.4020, L500.2500 #### [facility] [address] [place], [address] MCHC (RBC) [Mass/Vol] 32.5 g/dL Normal 32-36 [facility] Comment on above: Performed By: #### L 100.0100, L501.4020, L500.2500 #### [facility] [address] [place], [address] MCV (RBC) [Entitic vol] 94.7 fL Normal 81-99 [facility] Comment on above: Performed By: #### L 100.0100, L501.4020, L500.2500 #### [facility] [address] [place], [address] Platelet mean volume (Bld) [Entitic vol] 9.9 fL Normal 6.2-12.0 [facility] Comment on above: Performed By: #### L 100.0100, L501.4020, L500.2500 #### [facility] [address] [place], [address] Platelets (Bld) [#/Vol] 123 10*3/uL Low 150-450 [facility] Comment on above: Performed By: #### L 100.0100, L501.4020, L500.2500 #### [facility] [address] [place], [address] RBC (Bld) [#/Vol] 3.57 10*6/uL Low 4.2-5.4 [facility] Comment on above: Performed By: #### L 100.0100, L501.4020, L500.2500 #### [facility] [address] [place], [address] RDW SD 44.3 fl High 35.1-43.9 [facility] Comment on above: Performed By: #### L 100.0100, L501.4020, L500.2500 #### [facility] [address] [place], [address] WBC (Bld) [#/Vol] 4.1 10*3/uL Low 4.4-11.0 [facility] Comment on above: Performed By: #### L 100.0100, L501.4020, L500.2500 #### [facility] [address] [place], [address] Absolute neutrophil countOrd ered By: Tanisha Bahena on 11-26-2024 Neutrophils (Bld) [#/Vol] 3.6 10*3/uL 2.0-7.7 [facility] Anion gap in Serum or Plasma Ordered By: Tanisha Bahena on 11-26-2024 Anion gap [Moles/Vol] 11 mmol/L 5-15 [facility] BUN/creatinine ratioOrdered By: Tanisha Bahena on 11-26-2024 Urea nitrogen/Creatinine [Mass ratio] 15.1 mg/mg 10-20 [facility] Basophil percentageOrdered B y: Tanisha Bahena on 11-26-2024 Basophils/100 WBC (Bld) 0.2 % 0-1 [facility] Bilirubin Test strip Ql (U)O rdered By: Tanisha Bahena on 11-26-2024 Bilirubin Ql (U) Negative Negative [facility] Bilirubin, totalOrdered By: Tanisha Bahena on 11-26-2024 Bilirubin [Mass/Vol] 0.49 mg/dL 0.00-1.30 [facility] Blood cultureOrdered By: Danica lateshaangelica Bahena on 11-26-2024 Bacteria identified Cx Nom (Bld) No growth in 5 days. [facility] Brain without Contraston Brain without Contrast [facility] Imaging Services [address] [place] [address] Brain without Contrast MR#: [id number] Acct: [id number] Name: LISA UP Rep #: [id number] : 1945 F 79 From: Yoni Reynolds PCP: Dr. Sylvia Lizama MD Status: ADM DEBORAH Study: Brain without Contrast Date of Exam: 11/26/24 Exam# [id number] Ordering Dr: Jaxson Meehan DO PROCEDURE: CT [...] Jaxson Meehan DO; Dr. Sylvia Lizama MD Oxyhydrogen Welder: Signed Normal [facility] Brain/Head without Contrasto n 11-26-2024 Brain/Head without Contrast [facility] Imaging Services [address] [place], [place] [address] Brain/Head without Contrast MR#: [id number] Acct: [id number] Name: LISA UP Rep #: [id number] : 1945 F 79 From: Osman aden MD PCP: Dr. Sylvia Lizama MD Status: REG ER Study: Brain/Head without Contrast Date of Exam: 04/15 Exam# [id number] Ordering Dr: Tanisha Bahena DO EXAM: BRAIN/HEAD [...] as the left sphenoid sinus. Reading Location: [facility] CC: Dr. Tanisha Bahena DO; Dr. Sylvia Lizama MD Oxyhydrogen Welder: Signed Normal [facility] CBC W/Diff, Automatedon Absolute Lymph 0.76 X10 3/uL Low 0.83-4.51 [facility] Comment on above: Performed By: #### L 100.0100, L501.5200, L500.2500 #### [facility] [address] [place], [address] Absolute Neut 3.6 X10 3/uL Normal 2.0-7.7 [facility] Comment on above: Performed By: #### L 100.0100, L501.5200, L500.2500 #### [facility] [address] [place], [address] Basophils/100 WBC (Bld) 0.2 % Normal 0-[address] [facility] Comment on above: Performed By: #### L 100.0100, L501.5200, L500.2500 #### [facility] [address] [place], [address] Eosinophils/100 WBC (Bld) 1.2 % Normal 0-5 [facility] Comment on above: Performed By: #### L 100.0100, L501.5200, L500.2500 #### [facility] [address] [place], [address] Erythrocyte distribution width (RBC) [Ratio] 12.8 % Normal 11.6-14.6 [facility] Comment on above: Performed By: #### L 100.0100, L501.5200, L500.2500 #### [facility] [address] [place], [address] Hematocrit (Bld) [Volume fraction] 36.2 % Low 37-47 [facility] Comment on above: Performed By: #### L 100.0100, L501.5200, L500.2500 #### [facility] [address] [place], [address] Hemoglobin (Bld) [Mass/Vol] 11.7 g/dL Low 12.0-15.0 [facility] Comment on above: Performed By: #### L 100.0100, L501.5200, L500.2500 #### [facility] [address] [place], [address] IG% 0.400 Normal 0.0-0.9 [facility] Comment on above: Result Comment: IG% - Immature Granulocytes (promyelocytes, myelocytes and metamyelocytes) > 1% indicates that a LEFT SHIFT is Present. Performed By: #### L 100.0100, L501.5200, L500.2500 #### [facility] [address] [place], [address] Lymphocytes/100 WBC (Bld) 15.0 % Low 19-41 [facility] Comment on above: Performed By: #### L 100.0100, L501.5200, L500.2500 #### [facility] [address] [place], [address] MCH (RBC) [Entitic mass] 30.5 pg Normal 27.0-32.0 [facility] Comment on above: Performed By: #### L 100.0100, L501.5200, L500.2500 #### [facility] [address] [place], [address] MCHC (RBC) [Mass/Vol] 32.3 g/dL Normal 32-36 [facility] Comment on above: Performed By: #### L 100.0100, L501.5200, L500.2500 #### [facility] [address] [place], [address] MCV (RBC) [Entitic vol] 94.5 fL Normal 81-99 [facility] Comment on above: Performed By: #### L 100.0100, L501.5200, L500.2500 #### [facility] [address] [place], [address] Monocytes/100 WBC (Bld) 12.2 % High 0-10 [facility] Comment on above: Performed By: #### L 100.0100, L501.5200, L500.2500 #### [facility] [address] [place], [address] Neutrophils/100 WBC (Bld) 71.0 % High 47-70 [facility] Comment on above: Performed By: #### L 100.0100, L501.5200, L500.2500 #### [facility] [address] [place], [address] Nucleated RBC (Bld) [#/Vol] 0 10*3/uL Normal 0-5 [facility] Comment on above: Performed By: #### L 100.0100, L501.5200, L500.2500 #### [facility] [address] [place], [address] Platelet mean volume (Bld) [Entitic vol] 10.2 fL Normal 6.2-12.0 [facility] Comment on above: Performed By: #### L 100.0100, L501.5200, L500.2500 #### [facility] [address] [place], [address] Platelets (Bld) [#/Vol] 142 10*3/uL Low 150-450 [facility] Comment on above: Performed By: #### L 100.0100, L501.5200, L500.2500 #### [facility] [address] [place], [address] RBC (Bld) [#/Vol] 3.83 10*6/uL Low 4.2-5.4 [facility] Comment on above: Performed By: #### L 100.0100, L501.5200, L500.2500 #### [facility] [address] [place], [address] RDW SD 43.9 fl Normal 35.1-43.9 [facility] Comment on above: Performed By: #### L 100.0100, L501.5200, L500.2500 #### [facility] [address] [place], [address] WBC (Bld) [#/Vol] 5.1 10*3/uL Normal 4.4-11.0 [facility] Comment on above: Performed By: #### L 100.0100, L501.5200, L500.2500 #### [facility] [address] [place], [address] CPK Total, Creatine Kinaseon 11-26-2024 CPK TOTAL 183 U/L Normal 24-195 [facility] Comment on above: Performed By: #### L 100.0100, L501.5200, L500.2500 #### [facility] [address] [place], [address] Carbon dioxide, total [Moles /volume] in Central venous bloodOrdered By: Tanisha Bahena on 11-26-2024 CO2 [Moles/Vol] 25.6 mmol/L 21.0-32.0 [facility] Chest PA and Lateralon 11-26 Chest PA and Lateral [facility] Imaging Services [address] [facility] [place] [address] Chest PA and Lateral MR#: [id number] Acct: [id number] Name: LISA UP Rep #: [id number] : 1945 F 79 From: Osman aden MD PCP: Dr. Sylvia Lizama MD Status: REG ER Study: Chest PA and Lateral Date of Exam: 11/26/24 Exam# [id number] Ordering Dr: Tanisha Bahena DO PROCEDURE: CHEST PA AND LATERAL REASON FOR EXAM: Weakness, cough and chills. TECHNIQUE: Frontal and lateral views of the chest. COMPARISON: Comparison is made with prior study dated November 06, 2024. FINDINGS: EKG electrodes are seen. The heart is not enlarged. The lungs are clear. RAD/Chest PA and Lateral IMPRESSION: No acute abnormality is seen. Reading Location: [id number] CC: Dr. Tanisha Bahena DO; Dr. Sylvia Lizama MD Oxyhydrogen Welder: Signed Normal [facility] Chloride assayOrdered By: Fredi Bahena on 11-26-2024 Chloride [Moles/Vol] 101 mmol/L 98-108 [facility] Comprehensive Metabolic Prof ilon 11-26-2024 Albumin [Mass/Vol] 3.7 g/dL Normal 3.4-4.8 [facility] Comment on above: Performed By: #### L 100.0100, L501.5200, L500.2500 #### [facility] [address] [place], [address] Albumin/Globulin [Mass ratio] 1.5 {ratio} Normal 0.9-2.4 [facility] Comment on above: Performed By: #### L 100.0100, L501.5200, L500.2500 #### [facility] [address] [place], [address] ALK PHOS 66 U/L Normal 35-104 [facility] Comment on above: Performed By: #### L 100.0100, L501.5200, L500.2500 #### [facility] [address] [place], [address] ALT [Catalytic activity/Vol] U/L Normal <=34 [facility] Comment on above: Performed By: #### L 100.0100, L501.5200, L500.2500 #### [facility] [address] [place], [address] AST [Catalytic activity/Vol] 27 U/L Normal <=31 [facility] Comment on above: Performed By: #### L 100.0100, L501.5200, L500.2500 #### [facility] [address] [place], [address] Bilirubin [Mass/Vol] 0.49 mg/dL Normal 0.00-1.30 [facility] Comment on above: Performed By: #### L 100.0100, L501.5200, L500.2500 #### [facility] [address] [place], [address] BUN/CRE 15.1 RATIO Normal 10-20 [facility] Comment on above: Performed By: #### L 100.0100, L501.5200, L500.2500 #### [facility] [address] [place], [address] Calcium [Mass/Vol] 9.4 mg/dL Normal 7.6-11.0 [facility] Comment on above: Performed By: #### L 100.0100, L501.5200, L500.2500 #### [facility] [address] [place], [address] Chloride [Moles/Vol] 101 mmol/L Normal 98-108 [facility] Comment on above: Performed By: #### L 100.0100, L501.5200, L500.2500 #### [facility] [address] [place], [address] CO2 [Moles/Vol] 25.6 mmol/L Normal 21.0-32.0 [facility] Comment on above: Performed By: #### L 100.0100, L501.5200, L500.2500 #### [facility] [address] [place], [address] Creatinine [Mass/Vol] 0.72 mg/dL Normal 0.70-1.20 [facility] Comment on above: Performed By: #### L 100.0100, L501.5200, L500.2500 #### [facility] [address] [place], [address] ECRCL 64.55 ml/min Normal 50-250 [facility] Comment on above: Performed By: #### L 100.0100, L501.5200, L500.2500 #### [facility] [address] [place], [address] GAP 11 Normal 5-15 [facility] Comment on above: Performed By: #### L 100.0100, L501.5200, L500.2500 #### [facility] [address] [place], [address] GFR/1.73 sq M.predicted among non-blacks MDRD (S/P/Bld) [Vol rate/Area] 83 mL/min/{1.73_m2} Normal >60 [facility] Comment on above: Result Comment: mL/m in/1.73m2 CKD-EPI Creatinine Equation (2020) Performed By: #### L 100.0100, L501.5200, L500.2500 #### [facility] [address] [place], [address] Globulin (S) [Mass/Vol] 2.4 g/dL Normal 2.2-4.[address] [facility] Comment on above: Performed By: #### L 100.0100, L501.5200, L500.2500 #### [facility] [address] [place], [address] Glucose [Mass/Vol] 108 mg/dL High 70-99 [facility] Comment on above: Performed By: #### L 100.0100, L501.5200, L500.2500 #### [facility] [address] [place], [address] Potassium [Moles/Vol] 4.1 mmol/L Normal 3.3-5.1 [facility] Comment on above: Performed By: #### L 100.0100, L501.5200, L500.2500 #### [facility] [address] [place], [address] Sodium [Moles/Vol] 138 mmol/L Normal 133-145 [facility] Comment on above: Performed By: #### L 100.0100, L501.5200, L500.2500 #### [facility] [address] [place], [address] T PROT 6.1 g/dL Normal 5.9-8.4 [facility] Comment on above: Performed By: #### L 100.0100, L501.5200, L500.2500 #### [facility] [address] [place], [address] Urea nitrogen [Mass/Vol] 11 mg/dL Normal 4-19 [facility] Comment on above: Performed By: #### L 100.0100, L501.5200, L500.2500 #### [facility] [address] [place], [address] Emergency Department Summary on 11-26-2024 Emergency Department Summary [facility] Medical Records Department [address] [place] [address] Emergency Department Summary 11/26/24 MR#: [id number] Acct: [id number] Name: LISA UP Rep #: [id number] : 1945 79 From: Tanisha Bahena DO PCP: Dr. Sylvia Lizama MD Status:ADM DEBORAH Location: [address] History of Present Illness Chief Complaint: [...] time. Patient is on any blood thinners. [facility] Medical History DVT (deep venous thrombosis) Post-menopausal [...] vaccine, mRNA, Allergy Anaphylaxis Verified 11/26/24 11:17 [id number], erythromycin base Allergy Rash Verified 11/26/24 11:17 [...] Neurologic: Rep (more content not included)... Normal [facility] Eosinophil percentageOrdered By: Tanisha Bahena on 11-26-2024 Eosinophils/100 WBC (Bld) 1.2 % 0-5 [facility] Epithelial cells.squamous LM Ql (Urine sed)Ordered By: Tanisha Bahena on 11-26-2024 Epithelial cells.squamous LM.HPF (Urine sed) [#/Area] 0 /[HPF] 5-10 [facility] Erythrocyte distribution wid th ratioOrdered By: Tnaisha Bahena on 11-26-2024 Erythrocyte distribution width (RBC) [Ratio] 12.8 % 11.6-14.6 [facility] Erythrocyte distribution wid th standard deviationOrdered By: Tanisha Bahena on 11-26-2024 Erythrocyte distribution width (RBC) [Entitic vol] 43.9 fL 35.1-43.9 [facility] [facility] Estimation of creatinine ping aranceOrdered By: Tanisha Bahena on 11-26-2024 Estimated Creatinine Clearance Calc 64.55 ml/min 50-250 [facility] GFR/1.73 sq M.predicted germán g non-blacks MDRD (S/P/Bld) [Vol rate/Area]Ordered By: Tanisha Bahena on 11-26-2024 Estimated GFR (MDRD) Non-Af Amer 83 >60 [facility] Comment on above: mL/min/1.73m2 CKD-EP I Creatinine Equation (2020) Glucose Ql (U)Ordered By: Fredi Bahena on 11-26-2024 Urine Glucose (UA) Normal mg/dl Normal [facility] H AND P Exam - [facility] 11-26-2024 H&P Exam - Hospitalist [facility] Medical Records Department [address] [place] [address] H P Exam - Hospitalist 11/26/24 1607 MR#: [id number] Acct: [id number] Name: LISA UP Rep #: [id number] : 1945 79 From: Jaxson Meehan DO PCP: Dr. Sylvia Lizama MD Status:ADM DEBORAH Location: [place] [address] HPI - General General Date of Admission: 11/26/24 Date of Service: 11/26/24 Chief Complaint: weakness with fall at home HPI Narrative LISA UP, is a 79 F who presented to [facility] ED on 11/26/2024 with weakness and [...] any other acute concerns at this time. [facility] Medical History DVT (deep venous thrombosis) Post-menopausal [...] vaccine, mRNA, Allergy Anaphylaxis Verified 11/26/24 11:17 [id number], erythromycin base Allergy Rash Verified 11/26/24 11:17 (Erythromycin Base) lisinopril Allergy Swelling Verified 11/26/24 11:17 venom-wasp (wasp) Allergy NEEDS Verified 11/26/24 11:17 FOLLOW-UP amlodipine AdvReac Swelling Verified 11/26/24 11:17 latex AdvReac Swelling Verified 11/26/24 11:17 Family History Mother Hypertension Surgical Histo (more content not included)... Normal [facility] Hematocrit Auto (Bld) [Volum e fraction]Ordered By: Tanisha Bahena on 11-26-2024 Hematocrit (Bld) [Volume fraction] 36.2 % Low 37-47 [facility] Hemoglobin measurementOrdere d By: Tanisha Bahena on 11-26-2024 Hemoglobin (Bld) [Mass/Vol] 11.7 g/dL Low 12.0-15.0 [facility] Immature granulocytes/100 WB C Auto (Bld)Ordered By: Tanisha Bahena on 11-26-2024 Immature granulocytes/100 WBC (Bld) 0.400 % 0.0-0.9 [facility] Comment on above: IG% - Immature Granu locytes (promyelocytes, myelocytes and metamyelocytes) > 1% indicates that a LEFT SHIFT is Present. Influenza virus A and B and SARS-CoV-2 (COVID-19) and Respiratory syncytial virus RNAOrdered By: Tanisha Bahena on 11-26-2024 SARS-CoV-2 (COVID-19) RNA ANALI+probe Ql (Unsp spec) SARS-CoV-2 (COVID 19 PCR) Abnormal [facility] SARS-CoV-2 (COVID-19) RNA ANALI+probe Ql (Unsp spec) SARS-CoV-2 (COVID 19 PCR) Abnormal [facility] Ketones Test strip Ql (U)Ord ered By: Tanisha Bahena on 11-26-2024 Ketones Ql (U) Negative Negative [facility] Knee 4 or More Viewson 11-26 Knee 4 or More Views [facility] Imaging Services [address] [place] [id number] Knee 4 or More Views MR#: [id number] Acct: [id number] Name: LISA UP Rep #: [id number] : 1945 F 79 From: Osman aden MD PCP: Dr. Sylvia Lizama MD Status: REG ER Study: Knee 4 or More Views Date of Exam: 11/26/24 Exam# [id number] Ordering Dr: Tanisha Bahena DO PROCEDURE: KNEE [...] No acute abnormality is seen. Reading Location: [facility] CC: Dr. Tanisha Bahena DO; Dr. Sylvia Lizama MD Oxyhydrogen Welder: Signed Normal [facility] L499.0042on 11-26-2024 Trop T High Sen 18 ng/L High <=14 [facility] Comment on above: Performed By: #### L 100.0100, L501.4020, L500.2500 #### [facility] [address] [place], [address] Trop T High Sen Normal <=14 [facility] Comment on above: Result Comment: REOR NOEL WILL NOT RUN Performed By: #### L 499.0042 ####[facility] [address] [place], [address] L499.0043on 11-26-2024 Trop T High Sen 20 ng/L High <=14 [facility] Comment on above: Performed By: #### L 100.0100, L501.4020, L500.2500 #### [facility] [address] [place], [address] L501.4021on 11-26-2024 Trop T High Sen 18 ng/L High <=14 [facility] Comment on above: Performed By: #### L 100.0100, L501.4020, L500.2500 #### [facility] [address] [place], [address] Laboratory - Chemistry and C hemistry - challengeOrdered By: Tanisha Bahena on 11-26-2024 AST [Catalytic activity/Vol] 27 U/L <32 [facility] Lactic Acidon 11-26-2024 Lactate [Moles/Vol] mmol/L Normal 0.0-2.0 [facility] Comment on above: Order Comment: Y Performed By: #### L 100.0100, L501.5200, L500.2500 #### [facility] [address] [place], [address] Lactic acid measurementOrder ed By: Tanisha Bahena on 11-26-2024 Lactate [Moles/Vol] mmol/L 0.0-2.0 [facility] Lymphocytes Auto (Unsp spec) [#/Vol]Ordered By: Tanisha Bahena on 11-26-2024 Lymphocytes (Bld) [#/Vol] 0.76 10*3/uL Low 0.83-4.51 [facility] Lymphocytes/100 WBC Auto (Un sp spec)Ordered By: Tanisha Bahena on 11-26-2024 Lymphocytes/100 WBC (Bld) 15.0 % Low 19-41 [facility] M100.678on 11-26-2024 M100.678 Copy of report sent to Infection Control Printer MS#[id number] 11/26/24 [id number] FLUABV+SARS-CoV-2+RSV Pnl Resp ANALI+probe FLUABV+SARS-CoV-2+RSV Pnl Resp ANALI+probe SARS-CoV-2 (COVID 19) A Positive A INFLUENZA A Negative INFLUENZA B Negative RSV PCR Negative SARS-CoV-2 (COVID 19 PCR) Normal [facility] Comment on above: Performed By: #### L 100.0100, L501.4020, L500.2500 #### [facility] [address] [place], [address] MCV (mean corpuscular volume ) determinationOrdered By: Tanisha Bahena on 11-26-2024 MCV (RBC) [Entitic vol] 94.5 fL 81-[address] [facility] Magnetic resonance imaging r eportOrdered By: Yoni Bhatt on 11-26-2024 Study report [facility] Imaging Services [address] [place] [address] Brain without Contrast MR#: [id number] Acct: [id number] Name: LISA UP Rep #: [id number] : 1945 F 79 From: Sam Bhatt DO PCP: Dr. Sylvia Lizama MD Status: ADM I NO Study:Brain without Contrast Date of Exam: 11/26/24 Exam# [id number] Ordering Dr: Jaxson Castillo DO PROCEDURE: CT [...] Meehan DO; Dr. Sylvia Lizama MD ~ Oxyhydrogen Welder: Signed [facility] Mean corpuscular hemoglobin (MCH) determinationOrdered By: Tanisha Bahena on 11-26-2024 MCH (RBC) [Entitic mass] 30.5 pg 27.0-32.0 [facility] Mean corpuscular hemoglobin concentration (MCHC) determinationOrdered By: Tanisha Bahena on 11-26-2024 MCHC (RBC) [Mass/Vol] 32.3 g/dL 32-36 [facility] Mean platelet volume determi nationOrdered By: Tanisha Bahena on 11-26-2024 Platelet mean volume (Bld) [Entitic vol] 10.2 fL 6.2-12.0 [facility] Microscopic analysis of urin e for red blood cells (RBC)Ordered By: Tanisha Bahena on 11-26-2024 Urine RBC 0-5 SEEN /hpf 0-5 [facility] Monocyte percentageOrdered B y: Tanisha Bahena on 11-26-2024 Monocytes/100 WBC (Bld) 12.2 % High 0-[address] [facility] Mucus LM Ql (Urine sed)Order ed By: Tanisha Bahena on 11-26-2024 Mucus Ql (Urine sed) 0 SEEN /hpf [facility] Neutrophil percentageOrdered By: Tanisha Bahena on 11-26-2024 Neutrophils/100 WBC (Bld) 71.0 % High 47-70 [facility] Nitrite Test strip Ql (U)Ord ered By: Tanisha Bahena on 11-26-2024 Nitrite Ql (U) Negative Negative [facility] No Panel InformationOrdered By: Tanisha Bahena on 11-26-2024 Troponin T High Sensitivity 18 ng/L High <14 [facility] Nucleated red blood cell per centageOrdered By: Tanisha Bahena on 11-26-2024 Nucleated RBC/100 WBC (Bld) [Ratio] 0 % 0-5 [facility] Platelet countOrdered By: Fredi Bahena on 11-26-2024 Platelets (Bld) [#/Vol] 142 10*3/uL Low 150-450 [facility] Potassium (Unsp spec) [Mass/ Vol]Ordered By: Tanisha Bahena on 11-26-2024 Potassium [Moles/Vol] 4.1 mmol/L 3.3-5.1 [facility] Protein Test strip Ql (U)Ord ered By: Tanisha Bahena on 11-26-2024 Protein Ql (U) 15 mg/dl High Negative [facility] RBC Auto (Bld) [#/Vol]Ordere d By: Tanisha Bahena on 11-26-2024 RBC (Bld) [#/Vol] 3.83 10*6/uL Low 4.2-5.4 [facility] Serum creatinine measurement (mass/volume)Ordered By: Tanisha Bahena on 11-26-2024 Creatinine [Mass/Vol] 0.72 mg/dL 0.70-1.20 [facility] Serum globulin measurementOr dered By: Tanisha Bahena on 11-26-2024 Globulin (S) [Mass/Vol] 2.4 g/dL 2.2-4.[address] [facility] Serum glucose measurement (m ass/volume)Ordered By: Tanisha Bahena on 11-26-2024 Glucose [Mass/Vol] 108 mg/dL High 70-99 [facility] Serum or plasma alanine rice otransferase (ALT) measurementOrdered By: Tanisha Bahena on 11-26-2024 ALT [Catalytic activity/Vol] U/L <35 [facility] Serum or plasma albumin cirilo urement (mass/volume)Ordered By: Tanisha Bahena on 11-26-2024 Albumin [Mass/Vol] 3.7 g/dL 3.4-4.8 [facility] Serum or plasma albumin/glob ulin mass ratioOrdered By: Tanisha Bahena on 11-26-2024 Albumin/Globulin [Mass ratio] 1.5 {ratio} 0.9-2.4 [facility] Serum or plasma alkaline anitha sphatase measurementOrdered By: Tanisha Bahena on 11-26-2024 ALP [Catalytic activity/Vol] 66 U/L 35-104 [facility] Serum or plasma calcium cirilo urement (mass/volume)Ordered By: Tanisha Bahena on 11-26-2024 Calcium [Mass/Vol] 9.4 mg/dL 7.6-11.0 [facility] Serum or plasma creatine kin ase activityOrdered By: Tanisha Bahena on 11-26-2024 CK [Catalytic activity/Vol] 183 U/L 24-195 [facility] Serum or plasma urea nitroge n measurement (mass/volume)Ordered By: Tanisha Bahena on 11-26-2024 Urea nitrogen [Mass/Vol] 11 mg/dL 4-19 [facility] Sodium levelOrdered By: Nicole Bahena on 11-26-2024 Sodium [Moles/Vol] 138 mmol/L 133-145 [facility] Total proteinOrdered By: Dancia Bahena on 11-26-2024 Protein [Mass/Vol] 6.1 g/dL 5.9-8.4 [facility] Troponin T.cardiac High sens itivity method [Mass/Vol]Ordered By: Jaxson Meehan on 11-26-2024 Troponin T High Sensitivity 2 Hour 18 ng/L High <14 [facility] Troponin T.cardiac High sens itivity method [Mass/Vol]Ordered By: Tanisha Bahena on 11-26-2024 Troponin T High Sensitivity 4 Hour 20 ng/L High <14 [facility] Urinalysis, Completeon 11-26 EPI,SQUAMOUS 0-5 SEEN Normal 5-10 [facility] Comment on above: Order Comment: 'TROP ' Serial specimen #1, #2 or #3: 1 Performed By: #### L 100.0100, L501.4020, L500.2500 #### [facility] [address] [place], [address] RBC 0-5 SEEN Normal 0-5 [facility] Comment on above: Order Comment: 'TROP ' Serial specimen #1, #2 or #3: 1 Performed By: #### L 100.0100, L501.4020, L500.2500 #### [facility] [address] [place], [address] WBC 0-5 SEEN Normal 0-5 [facility] Comment on above: Order Comment: 'TROP ' Serial specimen #1, #2 or #3: 1 Performed By: #### L 100.0100, L501.4020, L500.2500 #### [facility] [address] [place], [address] BACTERIA 0 SEEN Normal None Seen [facility] Comment on above: Order Comment: 'TROP ' Serial specimen #1, #2 or #3: 1 Performed By: #### L 100.0100, L501.4020, L500.2500 #### [facility] [address] [place], [address] Mucus Ql (Urine sed) 0 SEEN Normal [facility] Comment on above: Order Comment: 'TROP ' Serial specimen #1, #2 or #3: 1 Performed By: #### L 100.0100, L501.4020, L500.2500 #### [facility] [address] [place], [address] Urine blood detectionOrdered By: Tanisha Bahena on 11-26-2024 Urine Occult Blood 10 /ul High Negative [facility] Urine clarityOrdered By: Danica Bahena on 11-26-2024 Clarity (U) Clear Clear [facility] Urine color determinationOrd ered By: Tanisha Bahena on 11-26-2024 Color (U) Yellow Yellow [facility] Urine leukocyte esterase det ection by dipstickOrdered By: Tanisha Bahena on 03-07-2025 Leukocyte esterase Test strip Ql (U) Negative Negative [facility] Urine pHOrdered By: Tanisha garcia on 11-26-2024 pH (U) 7.0 [pH] 5.0 - 8.0 [facility] Urine sediment bacteria coun t by microscopy (number/high power field)Ordered By: Tanisha Bahena on 11-26-2024 Bacteria LM.HPF (Urine sed) [#/Area] 0 /[HPF] None Seen [facility] Urine specific gravity measu rementOrdered By: Tanisha Bahena on 11-26-2024 Specific gravity (U) [Rel density] 1.010 1.002-1.030 [facility] Urobilinogen Ql (U)Ordered B y: Tanisha Bahena on 11-26-2024 Urobilinogen (U) [Mass/Vol] 1 mg/dL High Normal [facility] White blood cell (WBC) count Ordered By: Tanisha Bahena on 11-26-2024 WBC (Bld) [#/Vol] 5.1 10*3/uL 4.4-11.0 [facility] White blood cell countOrdere d By: Tanisha Bahena on 11-26-2024 Urine WBC 0-5 SEEN /hpf 0-5 [facility] Absolute neutrophil countOrd ered By: Zeny Wolff on 11-06-2024 Neutrophils (Bld) [#/Vol] 1.8 10*3/uL Low 2.0-7.7 [facility] Basic Metabolic Profile (BMP )on 11-06-2024 BUN/CRE 11.6 RATIO Normal 10-20 [facility] Comment on above: Performed By: #### L 100.0100, L501.4020, L500.2500 #### [facility] [address] [place], [address] CA,Total 8.9 mg/dL Normal 8.5-10.1 [facility] Comment on above: Performed By: #### L 100.0100, L501.4020, L500.2500 #### [facility] [address] [place], [address] Chloride [Moles/Vol] 110 mmol/L High 98-107 [facility] Comment on above: Performed By: #### L 100.0100, L501.4020, L500.2500 #### [facility] [address] [place], [address] CO2 [Moles/Vol] 26.0 mmol/L Normal 21.0-32.0 [facility] Comment on above: Performed By: #### L 100.0100, L501.4020, L500.2500 #### [facility] [address] [place], [address] Creatinine [Mass/Vol] 0.78 mg/dL Normal 0.55-1.02 [facility] Comment on above: Result Comment: The validity of the calculated GFR GFRAA in patients over 70 years has not been determined. Clinical correlation is essential. Performed By: #### L 100.0100, L501.4020, L500.2500 #### [facility] [address] [place], [address] EST GFR - AA 91 mL/min Normal >60 [facility] Comment on above: Result Comment: Afri can [place]arag[place] GFR Calc Performed By: #### L 100.0100, L501.4020, L500.2500 #### [facility] [address] [place], [address] GAP 6 Normal 5-15 [facility] Comment on above: Performed By: #### L 100.0100, L501.4020, L500.2500 #### [facility] [address] [place], [address] GFR/1.73 sq M.predicted among non-blacks MDRD (S/P/Bld) [Vol rate/Area] 75 mL/min/{1.73_m2} Normal >60 [facility] Comment on above: Result Comment: Non- GFR Calc Performed By: #### L 100.0100, L501.4020, L500.2500 #### [facility] [address] [place], [address] Glucose [Mass/Vol] 104 mg/dL Normal 74-106 [facility] Comment on above: Result Comment: Fast ing Glucose result from 100 to 125 mg/dL suggests IMPAIRED HOMEOSTASIS per A.D.A. criteria. Performed By: #### L 100.0100, L501.4020, L500.2500 #### [facility] [address] [place], [address] Potassium [Moles/Vol] 3.5 mmol/L Normal 3.5-5.1 [facility] Comment on above: Performed By: #### L 100.0100, L501.4020, L500.2500 #### [facility] [address] [place], [address] Sodium [Moles/Vol] 142 mmol/L Normal 136-145 [facility] Comment on above: Performed By: #### L 100.0100, L501.4020, L500.2500 #### [facility] [address] [place], [address] Urea nitrogen [Mass/Vol] 9 mg/dL Normal 7-18 [facility] Comment on above: Performed By: #### L 100.0100, L501.4020, L500.2500 #### [facility] [address] [place], [address] Basophil percentageOrdered B y: Zeny Wolff on 11-06-2024 Basophils/100 WBC (Bld) 0.0 % 0-[address] [facility] Blood urea nitrogen (BUN)/cr eatinine ratioOrdered By: Zeny Wolff on 11-06-2024 Urea nitrogen/Creatinine [Mass ratio] 11.6 mg/mg 10-20 [facility] CBC W/Diff, Automatedon 10-23 Absolute Lymph 0.83 X10 3/uL Normal 0.83-4.51 [facility] Comment on above: Performed By: #### L 100.0100, L501.4020, L500.2500 #### [facility] [address] [place], [address] Absolute Neut 1.8 X10 3/uL Low 2.0-7.7 [facility] Comment on above: Performed By: #### L 100.0100, L501.4020, L500.2500 #### [facility] [address] [place], [address] Basophils/100 WBC (Bld) 0.0 % Normal 0-[address] [facility] Comment on above: Performed By: #### L 100.0100, L501.4020, L500.2500 #### [facility] [address] [place], [address] Eosinophils/100 WBC (Bld) 2.3 % Normal 0-5 [facility] Comment on above: Performed By: #### L 100.0100, L501.4020, L500.2500 #### [facility] [address] [place], [address] Erythrocyte distribution width (RBC) [Ratio] 12.8 % Normal 11.6-14.6 [facility] Comment on above: Performed By: #### L 100.0100, L501.4020, L500.2500 #### [facility] [address] [place], [address] Hematocrit (Bld) [Volume fraction] 37.2 % Normal 37-47 [facility] Comment on above: Performed By: #### L 100.0100, L501.4020, L500.2500 #### [facility] [address] [place], [address] Hemoglobin (Bld) [Mass/Vol] 11.9 g/dL Low 12.0-15.0 [facility] Comment on above: Performed By: #### L 100.0100, L501.4020, L500.2500 #### [facility] [address] [place], [address] IG% 0.300 Normal 0.0-0.9 [facility] Comment on above: Result Comment: IG% - Immature Granulocytes (promyelocytes, myelocytes and metamyelocytes) > 1% indicates that a LEFT SHIFT is Present. Performed By: #### L 100.0100, L501.4020, L500.2500 #### [facility] [address] [place], [address] Lymphocytes/100 WBC (Bld) 26.8 % Normal 19-41 [facility] Comment on above: Performed By: #### L 100.0100, L501.4020, L500.2500 #### [facility] [address] [place], [address] MCH (RBC) [Entitic mass] 30.9 pg Normal 27.0-32.0 [facility] Comment on above: Performed By: #### L 100.0100, L501.4020, L500.2500 #### [facility] [address] [place], [address] MCHC (RBC) [Mass/Vol] 32.0 g/dL Normal 32-36 [facility] Comment on above: Performed By: #### L 100.0100, L501.4020, L500.2500 #### [facility] [address] [place], [address] MCV (RBC) [Entitic vol] 96.6 fL Normal 81-99 [facility] Comment on above: Performed By: #### L 100.0100, L501.4020, L500.2500 #### [facility] [address] [place], [address] Monocytes/100 WBC (Bld) 12.6 % High 0-[address] [facility] Comment on above: Performed By: #### L 100.0100, L501.4020, L500.2500 #### [facility] [address] [place], [address] Neutrophils/100 WBC (Bld) 58.0 % Normal 47-70 [facility] Comment on above: Performed By: #### L 100.0100, L501.4020, L500.2500 #### [facility] [address] [place], [address] Nucleated RBC (Bld) [#/Vol] 0 10*3/uL Normal 0-5 [facility] Comment on above: Performed By: #### L 100.0100, L501.4020, L500.2500 #### [facility] [address] [place], [address] Platelet mean volume (Bld) [Entitic vol] 9.8 fL Normal 6.2-12.0 [facility] Comment on above: Performed By: #### L 100.0100, L501.4020, L500.2500 #### [facility] [address] [place], [address] Platelets (Bld) [#/Vol] 101 10*3/uL Low 150-450 [facility] Comment on above: Performed By: #### L 100.0100, L501.4020, L500.2500 #### [facility] [address] [place], [address] RBC (Bld) [#/Vol] 3.85 10*6/uL Low 4.2-5.4 [facility] Comment on above: Performed By: #### L 100.0100, L501.4020, L500.2500 #### [facility] [address] [place], [address] RDW SD 45.1 fl High 35.1-43.9 [facility] Comment on above: Performed By: #### L 100.0100, L501.4020, L500.2500 #### [facility] [address] [place], [address] WBC (Bld) [#/Vol] 3.1 10*3/uL Low 4.4-11.0 [facility] Comment on above: Performed By: #### L 100.0100, L501.4020, L500.2500 #### [facility] [address] [place], [address] Carbon dioxide measurementOr dered By: Zeny Wolff on 11-06-2024 CO2 [Moles/Vol] 26.0 mmol/L 21.0-32.0 [facility] Chest 1 View (Portable)on Chest 1 View (Portable) [facility] Imaging Services [address] [place] [address] Chest 1 View (Portable) MR#: [id number] Acct: [id number] Name: LISA UP Rep #: [id number] : 1945 F 79 From: Melyssa Hyatt nd, MD PCP: Dr. Sylvia Lizama MD Status: REG ER Study: Chest 1 View (Portable) Date of Exam: 11/06/24 Exam# [id number] Ordering Dr: Zeny Wolff DO PROCEDURE: CHEST [...] View (Portable) IMPRESSION: NEGATIVE CHEST. Reading Location: [facility] CC: Dr. Zeny Wolff DO; Dr. Sylvia Lizama MD Oxyhydrogen Welder: Signed Normal [facility] Chloride measurementOrdered By: Zeny Wolff on 11-06-2024 Chloride [Moles/Vol] 110 mmol/L High 98-107 [facility] Emergency Department Summary on 11-06-2024 Emergency Department Summary [facility] Medical Records Department [address] [place] [address] Emergency Department Summary 11/06/24 MR#: [id number] Acct: [id number] Name: LISA UP Rep #: [id number] : 1945 79 From: Zeny Wolff DO PCP: Dr. Sylvia Lizama MD Status:DEP ER Location: ED HPI History of Present Illness Chief Complaint: Cold Sx Informant: patient and family (Son) Narrative Narrative: 79-year-old female presenting to the emergency room with the chief complaint of not feeling well. Patient states past 3 weeks she has had cough runny nose/congestion fatigue some diarrhea. She states that she was seen at [facility] urgent care on November 01 and was diagnosed with a UTI. Urine culture per MyChart grew out mixed radha. She was treated with nitrofurantoin. She also had a chest x-ray that was negative. She states that nothing is particularly different today it just has persisted. She feels globally weak. She states she is not eating as well. [facility] Medical History DVT (deep venous thrombosis) Post-menopausal [...] vaccine, mRNA, Allergy Anaphylaxis Verified 11/06/24 13:43 [id number], erythromycin base Allergy Rash Verified 11/06/24 13:43 [...] polydipsia, po (more content not included)... Normal [facility] Eosinophil percentageOrdered By: Zeny Wolff on 11-06-2024 Eosinophils/100 WBC (Bld) 2.3 % 0-5 [facility] Erythrocyte distribution wid th ratioOrdered By: Zeny Wolff on 11-06-2024 Erythrocyte distribution width (RBC) [Ratio] 12.8 % 11.6-14.6 [facility] Erythrocyte distribution wid th standard deviationOrdered By: Zeny Wolff on 11-06-2024 Erythrocyte distribution width (RBC) [Entitic vol] 45.1 fL High 35.1-43.9 [facility] Estimated glomerular filtrat ion rate (GFR) AmericanOrdered By: Zeny Wolff on 11-06-2024 Estimated GFR (MDRD) Amer 91 mL/min >60 [facility] Comment on above: GFR Calc Glomerular filtration rate ( GFR) estimationOrdered By: Zeny Wolff on 11-06-2024 Estimated GFR (MDRD) Non-Af Amer 75 mL/min >60 [facility] Comment on above: Non- GFR Calc Glucose measurementOrdered B y: Zeny Wolff on 11-06-2024 Glucose [Mass/Vol] 104 mg/dL 74-106 [facility] Comment on above: Fasting Glucose resu lt from 100 to 125 mg/dL suggests IMPAIRED HOMEOSTASIS per A.D.A. criteria. Hematocrit Auto (Bld) [Volum e fraction]Ordered By: Zeny Wolff on 11-06-2024 Hematocrit (Bld) [Volume fraction] 37.2 % 37-47 [facility] Hemoglobin measurementOrdere d By: Zeny Wolff on 11-06-2024 Hemoglobin (Bld) [Mass/Vol] 11.9 g/dL Low 12.0-15.0 [facility] Immature granulocytes/100 WB C Auto (Bld)Ordered By: Zeny Wolff on 11-06-2024 Immature granulocytes/100 WBC (Bld) 0.300 % 0.0-0.9 [facility] Comment on above: IG% - Immature Granu locytes (promyelocytes, myelocytes and metamyelocytes) > 1% indicates that a LEFT SHIFT is Present. Lymphocytes Auto (Unsp spec) [#/Vol]Ordered By: Zeny Wolff on 11-06-2024 Lymphocytes (Bld) [#/Vol] 0.83 10*3/uL 0.83-4.51 [facility] Lymphocytes/100 WBC Auto (Un sp spec)Ordered By: Zeny Wolff on 11-06-2024 Lymphocytes/100 WBC (Bld) 26.8 % 19-41 [facility] MCV (mean corpuscular volume ) determinationOrdered By: Zeny Wolff on 11-06-2024 MCV (RBC) [Entitic vol] 96.6 fL 81-[address] [facility] Mean corpuscular hemoglobin (MCH) determinationOrdered By: Zeny Wolff on 11-06-2024 MCH (RBC) [Entitic mass] 30.9 pg 27.0-32.0 [facility] Mean corpuscular hemoglobin concentration (MCHC) determinationOrdered By: Zeny Wolff on 11-06-2024 MCHC (RBC) [Mass/Vol] 32.0 g/dL 32-36 [facility] Mean platelet volume determi nationOrdered By: Zeny Wolff on 11-06-2024 Platelet mean volume (Bld) [Entitic vol] 9.8 fL 6.2-12.0 [facility] Monocyte percentageOrdered B y: Zeny Wolff on 11-06-2024 Monocytes/100 WBC (Bld) 12.6 % High 0-[address] [facility] Neutrophil percentageOrdered By: Zeny Wolff on 11-06-2024 Neutrophils/100 WBC (Bld) 58.0 % 47-70 [facility] Nucleated red blood cell per centageOrdered By: Zeny Wolff on 11-06-2024 Nucleated RBC/100 WBC (Bld) [Ratio] 0 % 0-5 [facility] Platelet countOrdered By: Jose Wolff on 11-06-2024 Platelets (Bld) [#/Vol] 101 10*3/uL Low 150-450 [facility] Potassium measurementOrdered By: Zeny Wolff on 11-06-2024 Potassium [Moles/Vol] 3.5 mmol/L 3.5-5.1 [facility] RBC Auto (Bld) [#/Vol]Ordere d By: Zeny Wolff on 11-06-2024 RBC (Bld) [#/Vol] 3.85 10*6/uL Low 4.2-5.4 [facility] Serum anion gap measurementO rdered By: Zeny Wolff on 11-06-2024 Anion gap [Moles/Vol] 6 mmol/L 5-15 [facility] Serum or plasma calcium cirilo urement (mass/volume)Ordered By: Zeny Wolff on 11-06-2024 Calcium [Mass/Vol] 8.9 mg/dL 8.5-10.1 [facility] Serum or plasma creatinine m easurement (mass/volume)Ordered By: Zeny Wolff on 11-06-2024 Creatinine [Mass/Vol] 0.78 mg/dL 0.55-1.02 [facility] Comment on above: The validity of the calculated GFR & GFRAA in patients over 70 years has not been determined. Clinical correlation is essential. Serum or plasma urea nitroge n measurement (mass/volume)Ordered By: Zeny Wolff on 11-06-2024 Urea nitrogen [Mass/Vol] 9 mg/dL 7-18 [facility] Sodium levelOrdered By: Julius Wolff on 11-06-2024 Sodium [Moles/Vol] 142 mmol/L 136-145 [facility] White blood cell (WBC) count Ordered By: Zeny Wolff on 11-06-2024 WBC (Bld) [#/Vol] 3.1 10*3/uL Low 4.4-11.0 [facility] UA DIP, URINE (POC)on 2024 BILIRUBIN UA (POCT) Negative Negative [facility] CLARITY UA (POCT) Clear [facility] COLOR UA (POCT) Yellow [facility] GLUCOSE UA (POCT) Negative Negative mg/dL [facility] Hemoglobin Ql (U) Trace-intact Abnormal Negative [facility] Interpretation and review of laboratory results Abnormal [facility] KETONE UA (POCT) Negative Negative mg/dL [facility] LEUKOCYTES UA (POCT) Moderate Abnormal Negative [facility] NITRITE UA (POCT) Negative Negative [facility] PH UA (POCT) 7 4.5 - 8.0 [facility] Protein Ql (U) >=300 Abnormal Negative mg/dL [facility] SPECIFIC GRAVITY UA (POCT) 1.02 1.005 - 1.030 [facility] UROBILINOGEN UA (POCT) 1 Ana l E.U./dL [facility] Location:[address], [place], [place], [address] [place] [address] POINT OF CARE [facility] XR Chest PA and Lateralon IMPRESSION: No acute radiographic abnormality. Oxyhydrogen Welder: IVAN Transcribe Date/Time: Nov 01 2024 12:49P Dictated by : Blessing VASQUEZ MD This examination was interpreted and the report reviewed and electronically signed by: Blessing VASQUEZ MD on Nov 01 2024 12:53PM [facility] DIVISION OF RADIOLOGY * * *Final Report* [...] spine. IMPRESSION IMPRESSION: No acute radiographic abnormality. Oxyhydrogen Welder: IVAN Transcribe Date/Time: Nov 01 2024 12:49P Dictated by : Blessing VASQUEZ MD This examination was interpreted and the report reviewed and electronically signed by: Blessing VASQUEZ MD on Nov 01 2024 12:53PM EST [facility] Radiology Study observation (narrative) [facility] XR Chest PA and LateralOrder ed By: [facility] Provider on 11-01-2024 [facility] MR Brain WO and W contrast I Von 08-12-2024 IMPRESSION: Stable appearance of the brain since 10/17/2017. No evidence of an acute intracranial process or intracranial mass. Oxyhydrogen Welder: IVAN Transcribe Date/Time: Aug 12 2024 1:27P Dictated by : CÉSAR TAVAREZ MD This examination was interpreted and the report reviewed and electronically signed by: CÉSAR TAVAREZ MD on Aug 12 2024 1:33PM [facility] DIVISION OF RADIOLOGY * * *Final Report* * * DATE OF EXAM: Aug 12 2024 1:10PM [facility] 0295 - MRI BRAIN WO/W IVCON / [...] are otherwise clear. DIVISION OF RADIOLOGY Provider, [facility] - 08/12/2024 * * *Final Report* * * DATE OF EXAM: Aug 12 2024 1:10PM [facility] 0295 - MRI BRAIN WO/W IVCON / [...] an acute intracranial process or intracranial mass. Oxyhydrogen Welder[facility] Transcribe Date/Time: Aug 12 2024 1:27P Dictated by : CÉSAR TAVAREZ MD This examination was interpreted and the report reviewed and electronically signed by: CÉSAR TAVAREZ MD on Aug 12 2024 1:33PM EST [facility] Radiology Study observation (narrative) [facility] MR Brain WO and W contrast I VOrdered By: [facility] Provider on 08-12-2024 [facility] UA DIP, URINE (POC)on 2023 BILIRUBIN UA (POCT) Negative Negative [facility] CLARITY UA (POCT) Clear [facility] COLOR UA (POCT) Yellow [facility] GLUCOSE UA (POCT) Negative Negative mg/dL [facility] Hemoglobin Ql (U) Moderate Abnormal Negative [facility] Interpretation and review of laboratory results Abnormal [facility] KETONE UA (POCT) Negative Negative mg/dL [facility] LEUKOCYTES UA (POCT) Small Abnormal Negative [facility] NITRITE UA (POCT) Negative Negative [facility] PH UA (POCT) 7.0 4.5 - 8.0 [facility] Protein Ql (U) >=300 Abnormal Negative mg/dL [facility] SPECIFIC GRAVITY UA (POCT) 1.020 1.005 - 1.030 [facility] UROBILINOGEN UA (POCT) 0.2 Ana l E.U./dL [facility] Location:[facility], [address], [place], [address] [facility] POINT OF CARE [facility] 12 Lead EKGon 07-04-2024 12 Lead EKG [facility] Cardiovascular Services [address] [place] [address] 12 Lead EKG 07/04/24 0457 MR#: [id number] Acct: [id number] Name: LISA UP Rep #: [id number] : 1945 78 From: Pavel Red MD [...] : 462 ms Sinus rhythm with short IA Left ventricular hypertrophy with repolarization abnormality ( R in aVL , Jacobo product ) Confirmed by Pavel Red ([id number]), scientific publications editor DARIEN SALMERON ([id number]) on 07/05/2024 9:40:12 AM Referred By: TOAN Confirmed By:Pavel Red 07/05/24 0940 Date Pavel Red MD CC: Dr. Sylvia Lizama MD; Marcell Gutiérrez DO Signed Normal [facility] Basic Metabolic Profile (BMP )on 07-04-2024 BUN/CRE 18.3 RATIO Normal 07-11 [facility] Comment on above: Order Comment: 'TROP ' Serial specimen #1, #2 or #3: 1 Performed By: #### L 100.0100, L501.4020, L500.2500 #### [facility] [address] [place], [address] CA,Total 9.9 mg/dL Normal 8.5-10.1 [facility] Comment on above: Order Comment: 'TROP ' Serial specimen #1, #2 or #3: 1 Performed By: #### L 100.0100, L501.4020, L500.2500 #### [facility] [address] [place], [address] Chloride [Moles/Vol] 107 mmol/L Normal 98-107 [facility] Comment on above: Order Comment: 'TROP ' Serial specimen #1, #2 or #3: 1 Performed By: #### L 100.0100, L501.4020, L500.2500 #### [facility] [address] [place], [address] CO2 [Moles/Vol] 28.0 mmol/L Normal 21.0-32.0 [facility] Comment on above: Order Comment: 'TROP ' Serial specimen #1, #2 or #3: 1 Performed By: #### L 100.0100, L501.4020, L500.2500 #### [facility] [address] [place], [address] Creatinine [Mass/Vol] 0.82 mg/dL Normal 0.55-1.02 [facility] Comment on above: Order Comment: 'TROP ' Serial specimen #1, #2 or #3: 1 Result Comment: The validity of the calculated GFR GFRAA in patients over 70 years has not been determined. Clinical correlation is essential. Performed By: #### L 100.0100, L501.4020, L500.2500 #### [facility] [address] [place], [address] ECRCL 62.80 ml/min Normal [facility] Comment on above: Order Comment: 'TROP ' Serial specimen #1, #2 or #3: 1 Performed By: #### L 100.0100, L501.4020, L500.2500 #### [facility] [address] [place], [address] EST GFR - AA 86 mL/min Normal >60 [facility] Comment on above: Order Comment: 'TROP ' Serial specimen #1, #2 or #3: 1 Result Comment: Afri can Nicaraguan GFR Calc Performed By: #### L 100.0100, L501.4020, L500.2500 #### [facility] [address] [place], [address] GAP 6 Normal 5-15 [facility] Comment on above: Order Comment: 'TROP ' Serial specimen #1, #2 or #3: 1 Performed By: #### L 100.0100, L501.4020, L500.2500 #### [facility] [address] [place], [address] GFR/1.73 sq M.predicted among non-blacks MDRD (S/P/Bld) [Vol rate/Area] 71 mL/min/{1.73_m2} Normal >60 [facility] Comment on above: Order Comment: 'TROP ' Serial specimen #1, #2 or #3: 1 Result Comment: Non- GFR Calc Performed By: #### L 100.0100, L501.4020, L500.2500 #### [facility] [address] [place], [address] Glucose [Mass/Vol] 119 mg/dL High 74-106 [facility] Comment on above: Order Comment: 'TROP ' Serial specimen #1, #2 or #3: 1 Result Comment: Fast ing Glucose result from 100 to 125 mg/dL suggests IMPAIRED HOMEOSTASIS per A.D.A. criteria. Performed By: #### L 100.0100, L501.4020, L500.2500 #### [facility] [address] [place], [address] Potassium [Moles/Vol] 3.6 mmol/L Normal 3.5-5.1 [facility] Comment on above: Order Comment: 'TROP ' Serial specimen #1, #2 or #3: 1 Performed By: #### L 100.0100, L501.4020, L500.2500 #### [facility] [address] [place], [address] Sodium [Moles/Vol] 141 mmol/L Normal 136-145 [facility] Comment on above: Order Comment: 'TROP ' Serial specimen #1, #2 or #3: 1 Performed By: #### L 100.0100, L501.4020, L500.2500 #### [facility] [address] [place], [address] Urea nitrogen [Mass/Vol] 15 mg/dL Normal 7-18 [facility] Comment on above: Order Comment: 'TROP ' Serial specimen #1, #2 or #3: 1 Performed By: #### L 100.0100, L501.4020, L500.2500 #### [facility] [address] [place], [address] Brain/Head without Contrast n 07-04-2024 Brain/Head without Contrast [facility] Imaging Services [address] [place] [address] Brain/Head without Contrast MR#: [id number] Acct: [id number] Name: LISA UP Agatha Rep #: [id number] : 1945 F 78 From: Pavel Parks PCP: Dr. Sylvia Lizama MD Status: [facility] Study: Brain/Head without Contrast Date of Exam: 06/22 12/13 Exam# [id number] Ordering Dr: Marcell Gutiérrez DO [id number] EXAM: CT HEAD WITHOUT INTRAVENOUS CONTRAST CLINICAL [...] Dr. Sylvia Lizama MD; Marcell Gutiérrez DO Oxyhydrogen Welder: Signed Normal [facility] CBC W/Diff, Automatedon 06-22 Absolute Lymph 1.43 X10 3/uL Normal 0.83-4.51 [facility] Comment on above: Performed By: #### L 100.0100, L501.4020, L500.2500 #### [facility] [address] [place], [address] Absolute Neut 7.3 X10 3/uL Normal 2.0-7.7 [facility] Comment on above: Performed By: #### L 100.0100, L501.4020, L500.2500 #### [facility] [address] [place], [address] Basophils/100 WBC (Bld) 0.2 % Normal 0-[address] [facility] Comment on above: Performed By: #### L 100.0100, L501.4020, L500.2500 #### [facility] [address] [place], [address] Eosinophils/100 WBC (Bld) 0.1 % Normal 0-5 [facility] Comment on above: Performed By: #### L 100.0100, L501.4020, L500.2500 #### [facility] [address] [place], [address] Erythrocyte distribution width (RBC) [Ratio] 13.1 % Normal 11.6-14.6 [facility] Comment on above: Performed By: #### L 100.0100, L501.4020, L500.2500 #### [facility] [address] [place], [address] Hematocrit (Bld) [Volume fraction] 40.0 % Normal 37-47 [facility] Comment on above: Performed By: #### L 100.0100, L501.4020, L500.2500 #### [facility] [address] [place], [address] Hemoglobin (Bld) [Mass/Vol] 12.6 g/dL Normal 12.0-15.0 [facility] Comment on above: Performed By: #### L 100.0100, L501.4020, L500.2500 #### [facility] [address] [place], [address] IG% 0.700 Normal 0.0-0.9 [facility] Comment on above: Result Comment: IG% - Immature Granulocytes (promyelocytes, myelocytes and metamyelocytes) > 1% indicates that a LEFT SHIFT is Present. Performed By: #### L 100.0100, L501.4020, L500.2500 #### [facility] [address] [place], [address] Lymphocytes/100 WBC (Bld) 15.1 % Low 19-41 [facility] Comment on above: Performed By: #### L 100.0100, L501.4020, L500.2500 #### [facility] [address] [place], [address] MCH (RBC) [Entitic mass] 30.5 pg Normal 27.0-32.0 [facility] Comment on above: Performed By: #### L 100.0100, L501.4020, L500.2500 #### [facility] [address] [place], [address] MCHC (RBC) [Mass/Vol] 31.5 g/dL Low 32-36 [facility] Comment on above: Performed By: #### L 100.0100, L501.4020, L500.2500 #### [facility] [address] [place], [address] MCV (RBC) [Entitic vol] 96.9 fL Normal 81-99 [facility] Comment on above: Performed By: #### L 100.0100, L501.4020, L500.2500 #### [facility] [address] [place], [address] Monocytes/100 WBC (Bld) 7.2 % Normal 0-10 [facility] Comment on above: Performed By: #### L 100.0100, L501.4020, L500.2500 #### [facility] [address] [place], [address] Neutrophils/100 WBC (Bld) 76.7 % High 47-70 [facility] Comment on above: Performed By: #### L 100.0100, L501.4020, L500.2500 #### [facility] [address] [place], [address] Nucleated RBC (Bld) [#/Vol] 0 10*3/uL Normal 0-5 [facility] Comment on above: Performed By: #### L 100.0100, L501.4020, L500.2500 #### [facility] [address] [place], [address] Platelet mean volume (Bld) [Entitic vol] 10.0 fL Normal 6.2-12.0 [facility] Comment on above: Performed By: #### L 100.0100, L501.4020, L500.2500 #### [facility] [address] [place], [address] Platelets (Bld) [#/Vol] 149 10*3/uL Low 150-450 [facility] Comment on above: Performed By: #### L 100.0100, L501.4020, L500.2500 #### [facility] [address] [place], [address] RBC (Bld) [#/Vol] 4.13 10*6/uL Low 4.2-5.4 [facility] Comment on above: Performed By: #### L 100.0100, L501.4020, L500.2500 #### [facility] [address] [place], [address] RDW SD 46.4 fl High 35.1-43.9 [facility] Comment on above: Performed By: #### L 100.0100, L501.4020, L500.2500 #### [facility] [address] [place], [address] WBC (Bld) [#/Vol] 9.5 10*3/uL Normal 4.4-11.0 [facility] Comment on above: Performed By: #### L 100.0100, L501.4020, L500.2500 #### [facility] [address] [place], [address] Chest PA and Lateralon 07-04 Chest PA and Lateral [facility] Imaging Services [address] [place] [address] Chest PA and Lateral MR#: [id number] Acct: [id number] Name: LISA UP Rep #: [id number] : 1945 F 78 From: Pavel Parks PCP: Dr. Sylvia Lizama MD Status: REG ER Study: Chest PA and Lateral Date of Exam: 07/04/24 Exam# [id number] Ordering Dr: Marcell Gutiérrez DO [id number] EXAM: XR CHEST, 2 VIEWS CLINICAL INDICATION: [...] Dr. Sylvia Lizama MD; Marcell Gutiérrez DO Oxyhydrogen Welder: Signed Normal [facility] Emergency Department Summary on 07-04-2024 Emergency Department Summary [facility] Medical Records Department [address] [place] [address] Emergency Department Summary 07/04/24 MR#: [id number] Acct: [id number] Name: LISA UP Rep #: [id number] : 1945 78 From: Marcell Gutiérrez DO [...] and took her first dose on Friday [facility] Medical History DVT (deep venous thrombosis) Post-menopausal [...] vaccine, mRNA, Allergy Anaphylaxis Verified 07/04/24 04:13 [id number], erythromycin base Allergy Rash Verified 07/04/24 04:13 [...] 68 Re (more content not included)... Normal [facility] L501.4020on 07-04-2024 TROPONIN-I HS 6 pg/mL Normal 3.0-54.0 [facility] Comment on above: Order Comment: 'TROP ' Serial specimen #1, #2 or #3: 1 Result Comment: Katty gardner Note: New Test Units and Gender Specific Reference Ranges. For more information see Policy Stat Procedure [place] High Sensitivity Troponin (TNIH) and attachments. Performed By: #### L 100.0100, L501.4020, L500.2500 #### [facility] [address] [place], [address] M100.678on 07-04-2024 M100.678 Pending SARS-CoV-2 (COVID 19) Negative INFLUENZA A Negative INFLUENZA B Negative RSV PCR Negative Normal [facility] Comment on above: Performed By: #### M 100.678 ####[facility] [address] [place], [address] UA DIP, URINE (POC)on 2023 BILIRUBIN UA (POCT) Negative Negative [facility] CLARITY UA (POCT) Clear [facility] COLOR UA (POCT) Yellow [facility] GLUCOSE UA (POCT) Negative Negative mg/dL [facility] Hemoglobin Ql (U) Large Abnormal Negative [facility] Interpretation and review of laboratory results Abnormal [facility] KETONE UA (POCT) Negative Negative mg/dL [facility] LEUKOCYTES UA (POCT) Small Abnormal Negative [facility] NITRITE UA (POCT) Negative Negative [facility] PH UA (POCT) 6.5 4.5 - 8.0 [facility] Protein Ql (U) >=300 Abnormal Negative mg/dL [facility] SPECIFIC GRAVITY UA (POCT) 1.025 1.005 - 1.030 [facility] UROBILINOGEN UA (POCT) 0.2 Ana l E.U./dL [facility] Location:[address], [place], [address] [facility] POINT OF CARE [facility] 12 Lead EKGon 05-08-2024 12 Lead EKG [facility] Cardiovascular Services [address] [place] [address] 12 Lead EKG 05/08/24 1502 MR#: [id number] Acct: [id number] Name: LISA UP Rep #: [id number] : 1945 78 From: Shala Louis MD [...] ECG Confirmed by DREW ROMERO, STEPHEN ([id number]), scientific publications editor TIMA WICK ([id number]) on 05/14/2024 6:15:23 AM Referred By: Confirmed By:VICTORINO LOUIS MD 05/14/24 0615 Date Shala Louis MD CC: Dr. Evans Jones MD; Dr. Sylvia Lizama MD Signed Normal [facility] Basic Metabolic Profile (BMP )on 05-08-2024 BUN/CRE 11.3 RATIO Normal 10-20 [facility] Comment on above: Order Comment: 'TROP ' Serial specimen #1, #2 or #3: 1 Performed By: #### L 100.0100, L501.4020, L500.2500 #### [facility] [address] [place], [address] CA,Total 8.8 mg/dL Normal 8.5-10.1 [facility] Comment on above: Order Comment: 'TROP ' Serial specimen #1, #2 or #3: 1 Performed By: #### L 100.0100, L501.4020, L500.2500 #### [facility] [address] [place], [address] Chloride [Moles/Vol] 106 mmol/L Normal 98-107 [facility] Comment on above: Order Comment: 'TROP ' Serial specimen #1, #2 or #3: 1 Performed By: #### L 100.0100, L501.4020, L500.2500 #### [facility] [address] [place], [address] CO2 [Moles/Vol] 29.0 mmol/L Normal 21.0-32.0 [facility] Comment on above: Order Comment: 'TROP ' Serial specimen #1, #2 or #3: 1 Performed By: #### L 100.0100, L501.4020, L500.2500 #### [facility] [address] [place], [address] Creatinine [Mass/Vol] 1.06 mg/dL High 0.55-1.02 [facility] Comment on above: Order Comment: 'TROP ' Serial specimen #1, #2 or #3: 1 Result Comment: The validity of the calculated GFR GFRAA in patients over 70 years has not been determined. Clinical correlation is essential. Performed By: #### L 100.0100, L501.4020, L500.2500 #### [facility] [address] [place], [address] ECRCL 49.01 ml/min Normal [facility] Comment on above: Order Comment: 'TROP ' Serial specimen #1, #2 or #3: 1 Performed By: #### L 100.0100, L501.4020, L500.2500 #### [facility] [address] [place], [address] EST GFR - AA 64 mL/min Normal >60 [facility] Comment on above: Order Comment: 'TROP ' Serial specimen #1, #2 or #3: 1 Result Comment: Afri can Nicaraguan GFR Calc Performed By: #### L 100.0100, L501.4020, L500.2500 #### [facility] [address] [place], [address] GAP 4 Low 5-15 [facility] Comment on above: Order Comment: 'TROP ' Serial specimen #1, #2 or #3: 1 Performed By: #### L 100.0100, L501.4020, L500.2500 #### [facility] [address] [place], [address] GFR/1.73 sq M.predicted among non-blacks MDRD (S/P/Bld) [Vol rate/Area] 53 mL/min/{1.73_m2} Low >60 [facility] Comment on above: Order Comment: 'TROP ' Serial specimen #1, #2 or #3: 1 Result Comment: Non- GFR Calc Performed By: #### L 100.0100, L501.4020, L500.2500 #### [facility] [address] [place], [address] Glucose [Mass/Vol] 122 mg/dL High 74-106 [facility] Comment on above: Order Comment: 'TROP ' Serial specimen #1, #2 or #3: 1 Result Comment: Fast ing Glucose result from 100 to 125 mg/dL suggests IMPAIRED HOMEOSTASIS per A.D.A. criteria. Performed By: #### L 100.0100, L501.4020, L500.2500 #### [facility] [address] [place], [address] Potassium [Moles/Vol] 3.8 mmol/L Normal 3.5-5.1 [facility] Comment on above: Order Comment: 'TROP ' Serial specimen #1, #2 or #3: 1 Performed By: #### L 100.0100, L501.4020, L500.2500 #### [facility] [address] [place], [address] Sodium [Moles/Vol] 139 mmol/L Normal 136-145 [facility] Comment on above: Order Comment: 'TROP ' Serial specimen #1, #2 or #3: 1 Performed By: #### L 100.0100, L501.4020, L500.2500 #### [facility] [address] [place], [address] Urea nitrogen [Mass/Vol] 12 mg/dL Normal 7-18 [facility] Comment on above: Order Comment: 'TROP ' Serial specimen #1, #2 or #3: 1 Performed By: #### L 100.0100, L501.4020, L500.2500 #### [facility] [address] [place], [address] Brain/Head without Contrasto n 05-08-2024 Brain/Head without Contrast [facility] Imaging Services [address] [place] [address] Brain/Head without Contrast MR#: [id number] Acct: [id number] Name: LISA UP Rep #: [id number] : 1945 F 78 From: Rosales Peralta MD PCP: Dr. Sylvia Lizama MD Status: [facility] ER Study: Brain/Head without Contrast Date of Exam: 04/22 04/14 Exam# [id number] Ordering Dr: Evans Jones MD [id number] STUDY: CT BRAIN WITHOUT CONTRAST REASON FOR [...] 15:48 EDT Reading Location ID and State: [address] [place] [address] , Service support , CC: Dr. Evans Jones MD; Dr. Sylvia Lizama MD Oxyhydrogen Welder: Signed Normal [facility] CBC W/Diff, Automatedon 04-22 Absolute Lymph 1.09 X10 3/uL Normal 0.83-4.51 [facility] Comment on above: Performed By: #### L 100.0100, L501.4020, L500.2500 #### [facility] [address] [place], [address] Absolute Neut 5.2 X10 3/uL Normal 2.0-7.7 [facility] Comment on above: Performed By: #### L 100.0100, L501.4020, L500.2500 #### [facility] [address] [place], [address] Basophils/100 WBC (Bld) 0.1 % Normal 0-[address] [facility] Comment on above: Performed By: #### L 100.0100, L501.4020, L500.2500 #### [facility] [address] [place], [address] Eosinophils/100 WBC (Bld) 2.2 % Normal 0-5 [facility] Comment on above: Performed By: #### L 100.0100, L501.4020, L500.2500 #### [facility] [address] [place], [address] Erythrocyte distribution width (RBC) [Ratio] 12.8 % Normal 11.6-14.6 [facility] Comment on above: Performed By: #### L 100.0100, L501.4020, L500.2500 #### [facility] [address] [place], [address] Hematocrit (Bld) [Volume fraction] 39.7 % Normal 37-47 [facility] Comment on above: Performed By: #### L 100.0100, L501.4020, L500.2500 #### [facility] [address] [place], [address] Hemoglobin (Bld) [Mass/Vol] 12.8 g/dL Normal 12.0-15.0 [facility] [facility] Comment on above: Performed By: #### L 100.0100, L501.4020, L500.2500 #### [facility] [address] [place], [address] IG% 0.300 Normal 0.0-0.9 [facility] Comment on above: Result Comment: IG% - Immature Granulocytes (promyelocytes, myelocytes and metamyelocytes) > 1% indicates that a LEFT SHIFT is Present. Performed By: #### L 100.0100, L501.4020, L500.2500 #### [facility] [address] [place], [address] Lymphocytes/100 WBC (Bld) 15.7 % Low 19-41 [facility] Comment on above: Performed By: #### L 100.0100, L501.4020, L500.2500 #### [facility] [address] [place], [address] MCH (RBC) [Entitic mass] 31.3 pg Normal 27.0-32.0 [facility] Comment on above: Performed By: #### L 100.0100, L501.4020, L500.2500 #### [facility] [address] [place], [address] MCHC (RBC) [Mass/Vol] 32.2 g/dL Normal 32-36 [facility] Comment on above: Performed By: #### L 100.0100, L501.4020, L500.2500 #### [facility] [address] [place], [address] MCV (RBC) [Entitic vol] 97.1 fL Normal 81-99 [facility] Comment on above: Performed By: #### L 100.0100, L501.4020, L500.2500 #### [facility] [address] [place], [address] Monocytes/100 WBC (Bld) 7.3 % Normal 0-10 [facility] Comment on above: Performed By: #### L 100.0100, L501.4020, L500.2500 #### [facility] [address] [place], [address] Neutrophils/100 WBC (Bld) 74.4 % High 47-70 [facility] Comment on above: Performed By: #### L 100.0100, L501.4020, L500.2500 #### [facility] [address] [place], [address] Nucleated RBC (Bld) [#/Vol] 0 10*3/uL Normal 0-5 [facility] Comment on above: Performed By: #### L 100.0100, L501.4020, L500.2500 #### [facility] [address] [place], [address] Platelet mean volume (Bld) [Entitic vol] 10.7 fL Normal 6.2-12.0 [facility] Comment on above: Performed By: #### L 100.0100, L501.4020, L500.2500 #### [facility] [address] [place], [address] Platelets (Bld) [#/Vol] 133 10*3/uL Low 150-450 [facility] Comment on above: Performed By: #### L 100.0100, L501.4020, L500.2500 #### [facility] [address] [place], [address] RBC (Bld) [#/Vol] 4.09 10*6/uL Low 4.2-5.4 [facility] Comment on above: Performed By: #### L 100.0100, L501.4020, L500.2500 #### [facility] [address] [place], [address] RDW SD 45.9 fl High 35.1-43.9 [facility] Comment on above: Performed By: #### L 100.0100, L501.4020, L500.2500 #### [facility] [address] [place], [address] WBC (Bld) [#/Vol] 6.9 10*3/uL Normal 4.4-11.0 [facility] Comment on above: Performed By: #### L 100.0100, L501.4020, L500.2500 #### [facility] [address] [place], [address] Chest 1 View (Portable)on Chest 1 View (Portable) [facility] Imaging Services [address] [place] [address] Chest 1 View (Portable) MR#: [id number] Acct: [id number] Name: LISA UP Rep #: [id number] : 1945 F 78 From: Rosales Peralta MD PCP: Dr. Sylvia Lizama MD Status: [facility] ER Study: Chest 1 View (Portable) Date of Exam: 05/08/24 Exam# [id number] Ordering Dr: Evans Jones MD [id number] STUDY: X-RAY CHEST REASON FOR EXAM: Female, [...] Evans Jones MD; Dr. Sylvia Lizama MD Oxyhydrogen Welder: Signed Normal [facility] Emergency Department Summary on 05-08-2024 Emergency Department Summary [facility] Medical Records Department [address] [place] [id number] Emergency Department Summary 05/08/24 MR#: [id number] Acct: [id number] Name: LISA UP Rep #: [id number] : 1945 78 From: Evans Jones MD [...] symptoms: Yes Recent Illness/Hospitalizatio n: Yes PFSH [facility] Medical History DVT (deep venous thrombosis) Post-menopausal [...] vaccine, mRNA, Allergy Anaphylaxis Verified 03/24/24 09:30 [id number], erythromycin base Allergy Rash Verified 03/24/24 09:30 [...] No sig (more content not included)... Normal [facility] L501.4020on 05-08-2024 TROPONIN-I HS 7 pg/mL Normal 3.0-54.0 [facility] Comment on above: Order Comment: 'TROP ' Serial specimen #1, #2 or #3: 1 Result Comment: Katty gardner Note: New Test Units and Gender Specific Reference Ranges. For more information see Policy Stat Procedure [place] High Sensitivity Troponin (TNIH) and attachments. Performed By: #### L 100.0100, L501.4020, L500.2500 #### [facility] [address] [place], [address] Urinalysis, Completeon 05-08 BACTERIA 1+ /hpf Normal None Seen [facility] Comment on above: Order Comment: 'TROP ' Serial specimen #1, #2 or #3: 1 Performed By: #### L 100.0100, L501.4020, L500.2500 #### [facility] [address] [place], [address] WBC 5-10 SEEN Normal 0-5 [facility] Comment on above: Order Comment: 'TROP ' Serial specimen #1, #2 or #3: 1 Performed By: #### L 100.0100, L501.4020, L500.2500 #### [facility] [address] [place], [address] EPI,SQUAMOUS 0 SEEN Normal 5-10 [facility] Comment on above: Order Comment: 'TROP ' Serial specimen #1, #2 or #3: 1 Performed By: #### L 100.0100, L501.4020, L500.2500 #### [facility] [address] [place], [address] Mucus Ql (Urine sed) 0 SEEN Normal [facility] Comment on above: Order Comment: 'TROP ' Serial specimen #1, #2 or #3: 1 Performed By: #### L 100.0100, L501.4020, L500.2500 #### [facility] [address] [place], [address] RBC 0 SEEN Normal 0-5 [facility] Comment on above: Order Comment: 'TROP ' Serial specimen #1, #2 or #3: 1 Performed By: #### L 100.0100, L501.4020, L500.2500 #### [facility] [address] [place], [address] Flexible sigmoidoscopy study on 04-29-2024 [facility] Gastrointestinal Endoscopy Patient Name: Lisa Up [...] Professional --- (more content not included)... PROVATION [facility] Radiology Study observation (narrative) [facility] [place] Extremity - lefton 2023 IMPRESSION: 2.0 x 0.5 x 1.5 cm area within the subcutaneous fat of the LEFT proximal forearm at the site of palpable abnormality which has similar echogenicity compared to the adjacent subcutaneous fat suggestive of a superficial lipoma. Oxyhydrogen Welder: IVAN Transcribe Date/Time: Apr 15 2024 5:45P Dictated by : WALI CORBIN DO This examination was interpreted and the report reviewed and electronically signed by: WALI CORBIN DO on Apr 15 2024 5:50PM [facility] DIVISION OF RADIOLOGY * * *Final Report* [...] subcutaneous fat suggestive of a superficial lipoma. Oxyhydrogen Welder: IVAN Transcribe Date/Time: Apr 15 2024 5:45P Dictated by : WALI CORBIN DO This examination was interpreted and the report reviewed and electronically signed by: WALI CORBIN DO on Apr 15 2024 5:50PM EST [facility] Radiology Study observation (narrative) [facility] [place] Extremity - leftOrdered B y: [facility] Provider on 04-15-2024 [facility] Basic metabolic 2000 panelOr dered By: Clair Cam on 04-02-2024 Anion gap [Moles/Vol] 9 mmol/L 8 - 15 mmol/L [facility] Calcium [Mass/Vol] 9.9 mg/dL 8.5 - 10. 2 mg/dL [facility] Chloride [Moles/Vol] 104 mmol/L 98 - 10 7 mmol/L [facility] CO2 [Moles/Vol] 30 mmol/L 22 - 30 mmol/L [facility] Creatinine [Mass/Vol] 0.81 mg/dL 0.58 - 0.96 mg/dL [facility] GFR/1.73 sq M.predicted among non-blacks MDRD (S/P/Bld) [Vol rate/Area] 73 mL/min/{1.73_m2} - PINF [facility] Comment on above: Estimated Glomerular Filtration Rate [...] 116 mg/dL High 74 - 99 mg/dL [facility] Comment on above: The [place] Diab[employer] s Association (ADA) provides guidance for [...] Standards of Medical Care in Diabetes 2016, [place] [employer]. Diabetes Care. 2016.39(Suppl 1). Interpretation and review of laboratory results Abnormal [facility] Potassium [Moles/Vol] 4.1 mmol/L 3.7 - 5.1 mmol/L [facility] Sodium [Moles/Vol] 143 mmol/L 136 - 144 mmol/L [facility] Urea nitrogen [Mass/Vol] 13 mg/dL 7 - 21 mg/dL [facility] Ova and Parasites 8623on OP OVA AND PARASITES EXAM, ROUTINE These results were obtained using wet preparation(s) and trichrome stained smear. This test does not include testing for Crytosporidium parvum, Cyclospora, or Microsporidia. O+P Spec Micro One negative specimen does not rule out the possibility of a parasitic infection. TESTING PERFORMED AT [facility]. ORIGINAL REPORT ON FILE IN LAB CONTAINS ADDITIONAL TEST SITE INFORMATION. Ova/Parasite Exam NO OVA, CYSTS, OR PARASITES FOUND. Normal [facility] Comment on above: Performed By: #### L 100.0100, L501.4020, L500.2500 #### [facility] [address] [place], [address] Basic Metabolic Profile (BMP )on 03-26-2024 BUN/CRE 17.8 RATIO Normal 10-20 [facility] Comment on above: Performed By: #### L 100.0100, L501.5200, L500.2500 #### [facility] [address] [place], [address] CA,Total 8.7 mg/dL Normal 8.5-10.1 [facility] Comment on above: Performed By: #### L 100.0100, L501.5200, L500.2500 #### [facility] [address] [place], [address] Chloride [Moles/Vol] 110 mmol/L High 98-107 [facility] Comment on above: Performed By: #### L 100.0100, L501.5200, L500.2500 #### [facility] [address] [place], [address] CO2 [Moles/Vol] 26.0 mmol/L Normal 21.0-32.0 [facility] Comment on above: Performed By: #### L 100.0100, L501.5200, L500.2500 #### [facility] [address] [place], [address] Creatinine [Mass/Vol] 0.67 mg/dL Normal 0.55-1.02 [facility] Comment on above: Result Comment: The validity of the calculated GFR GFRAA in patients over 70 years has not been determined. Clinical correlation is essential. Performed By: #### L 100.0100, L501.5200, L500.2500 #### [facility] [address] [place], [address] ECRCL 63.94 ml/min Normal [facility] Comment on above: Performed By: #### L 100.0100, L501.5200, L500.2500 #### [facility] [address] [place], [address] EST GFR - AA 108 mL/min Normal >60 [facility] Comment on above: Result Comment: Afri can [place] GFR Calc Performed By: #### L 100.0100, L501.5200, L500.2500 #### [facility] [address] [place], [address] GAP 6 Normal 5-15 [facility] Comment on above: Performed By: #### L 100.0100, L501.5200, L500.2500 #### [facility] [address] [place], [address] GFR/1.73 sq M.predicted among non-blacks MDRD (S/P/Bld) [Vol rate/Area] 90 mL/min/{1.73_m2} Normal >60 [facility] Comment on above: Result Comment: Non- GFR Calc Performed By: #### L 100.0100, L501.5200, L500.2500 #### [facility] [address] [place], [address] Glucose [Mass/Vol] 111 mg/dL High 74-106 [facility] Comment on above: Result Comment: Fast ing Glucose result from 100 to 125 mg/dL suggests IMPAIRED HOMEOSTASIS per A.D.A. criteria. Performed By: #### L 100.0100, L501.5200, L500.2500 #### [facility] [address] [place], [address] Potassium [Moles/Vol] 3.5 mmol/L Normal 3.5-5.1 [facility] Comment on above: Performed By: #### L 100.0100, L501.5200, L500.2500 #### [facility] [address] [place], [address] Sodium [Moles/Vol] 142 mmol/L Normal 136-145 [facility] Comment on above: Performed By: #### L 100.0100, L501.5200, L500.2500 #### [facility] [address] [place], [address] Urea nitrogen [Mass/Vol] 12 mg/dL Normal 7-18 [facility] Comment on above: Performed By: #### L 100.0100, L501.5200, L500.2500 #### [facility] [address] [place], [address] CBC W/Diff, Automatedon 07-0 5-2024 Absolute Lymph 1.11 X10 3/uL Normal 0.83-4.51 [facility] Comment on above: Performed By: #### L 100.0100, L501.5200, L500.2500 #### [facility] [address] [place], [address] Absolute Neut 2.7 X10 3/uL Normal 2.0-7.7 [facility] Comment on above: Performed By: #### L 100.0100, L501.5200, L500.2500 #### [facility] [address] [place], [address] Basophils/100 WBC (Bld) 0.2 % Normal 0-[address] [facility] Comment on above: Performed By: #### L 100.0100, L501.5200, L500.2500 #### [facility] [address] [place], [address] Eosinophils/100 WBC (Bld) 4.7 % Normal 0-5 [facility] Comment on above: Performed By: #### L 100.0100, L501.5200, L500.2500 #### [facility] [address] [place], [address] Erythrocyte distribution width (RBC) [Ratio] 13.2 % Normal 11.6-14.6 [facility] Comment on above: Performed By: #### L 100.0100, L501.5200, L500.2500 #### [facility] [address] [place], [address] Hematocrit (Bld) [Volume fraction] 34.8 % Low 37-47 [facility] Comment on above: Performed By: #### L 100.0100, L501.5200, L500.2500 #### [facility] [address] [place], [address] Hemoglobin (Bld) [Mass/Vol] 11.1 g/dL Low 12.0-15.0 [facility] Comment on above: Performed By: #### L 100.0100, L501.5200, L500.2500 #### [facility] [address] [place], [address] IG% 0.200 Normal 0.0-0.9 [facility] Comment on above: Result Comment: IG% - Immature Granulocytes (promyelocytes, myelocytes and metamyelocytes) > 1% indicates that a LEFT SHIFT is Present. Performed By: #### L 100.0100, L501.5200, L500.2500 #### [facility] [address] [place], [address] Lymphocytes/100 WBC (Bld) 24.7 % Normal 19-41 [facility] Comment on above: Performed By: #### L 100.0100, L501.5200, L500.2500 #### [facility] [address] [place], [address] MCH (RBC) [Entitic mass] 31.4 pg Normal 27.0-32.0 [facility] Comment on above: Performed By: #### L 100.0100, L501.5200, L500.2500 #### [facility] [address] [place], [address] MCHC (RBC) [Mass/Vol] 31.9 g/dL Low 32-36 [facility] Comment on above: Performed By: #### L 100.0100, L501.5200, L500.2500 #### [facility] [address] [place], [address] MCV (RBC) [Entitic vol] 98.3 fL Normal 81-99 [facility] Comment on above: Performed By: #### L 100.0100, L501.5200, L500.2500 #### [facility] [address] [place], [address] Monocytes/100 WBC (Bld) 10.7 % High 0-10 [facility] Comment on above: Performed By: #### L 100.0100, L501.5200, L500.2500 #### [facility] [address] [place], [address] Neutrophils/100 WBC (Bld) 59.5 % Normal 47-70 [facility] Comment on above: Performed By: #### L 100.0100, L501.5200, L500.2500 #### [facility] [address] [place], [address] Nucleated RBC (Bld) [#/Vol] 0 10*3/uL Normal 0-5 [facility] Comment on above: Performed By: #### L 100.0100, L501.5200, L500.2500 #### [facility] [address] [place], [address] Platelet mean volume (Bld) [Entitic vol] 9.6 fL Normal 6.2-12.0 [facility] Comment on above: Performed By: #### L 100.0100, L501.5200, L500.2500 #### [facility] [address] [place], [address] Platelets (Bld) [#/Vol] 109 10*3/uL Low 150-450 [facility] Comment on above: Performed By: #### L 100.0100, L501.5200, L500.2500 #### [facility] [address] [place], [address] RBC (Bld) [#/Vol] 3.54 10*6/uL Low 4.2-5.4 [facility] Comment on above: Performed By: #### L 100.0100, L501.5200, L500.2500 #### [facility] [address] [place], [address] RDW SD 47.8 fl High 35.1-43.9 [facility] Comment on above: Performed By: #### L 100.0100, L501.5200, L500.2500 #### [facility] [address] [place], [address] WBC (Bld) [#/Vol] 4.5 10*3/uL Normal 4.4-11.0 [facility] Comment on above: Performed By: #### L 100.0100, L501.5200, L500.2500 #### [facility] [address] [place], [address] Discharge Instructionon Discharge Instruction [facility] Medical Records Department [address] [place] [address] Instructions for Home/Discharge Instructions 03/26/24 1052 MR#: [id number] Acct: [id number] Name: LISA UP Rep #: [id number] : 1945 78 From: Kenyon Joiner MD [...] Care Provider: Sylvia Lizama Consulting Providers: Maria Isabel Glover Instructions Patient Instructions: Understanding Norovirus, ED [...] MD; Dr. Sylvia Lizama MD Signed Normal [facility] Magnesiumon 03-26-2024 Magnesium [Mass/Vol] 1.8 mg/dL Normal 1.6-2.6 [facility] Comment on above: Performed By: #### L 100.0100, L501.5200, L500.2500 #### [facility] [address] [place], [address] CBC W/Diff, Automatedon 07-0 -2023 Absolute Lymph 0.97 X10 3/uL Normal 0.83-4.51 [facility] Comment on above: Performed By: #### L 500.4050, L501.5200, L100.0100 #### [facility] [address] [place], [address] Absolute Neut 2.0 X10 3/uL Normal 2.0-7.7 [facility] Comment on above: Performed By: #### L 500.4050, L501.5200, L100.0100 #### [facility] [address] [place], [address] Basophils/100 WBC (Bld) 0.6 % Normal 0-[address] [facility] Comment on above: Performed By: #### L 500.4050, L501.5200, L100.0100 #### [facility] [address] [place], [address] Eosinophils/100 WBC (Bld) 4.0 % Normal 0-5 [facility] Comment on above: Performed By: #### L 500.4050, L501.5200, L100.0100 #### [facility] [address] [place], [address] Erythrocyte distribution width (RBC) [Ratio] 13.3 % Normal 11.6-14.6 [facility] Comment on above: Performed By: #### L 500.4050, L501.5200, L100.0100 #### [facility] [address] [place], [address] Hematocrit (Bld) [Volume fraction] 37.8 % Normal 37-47 [facility] Comment on above: Performed By: #### L 500.4050, L501.5200, L100.0100 #### [facility] [address] [place], [address] Hemoglobin (Bld) [Mass/Vol] 12.0 g/dL Normal 12.0-15.0 [facility] Comment on above: Performed By: #### L 500.4050, L501.5200, L100.0100 #### [facility] [address] [place], [address] IG% 0.300 Normal 0.0-0.9 [facility] Comment on above: Result Comment: IG% - Immature Granulocytes (promyelocytes, myelocytes and metamyelocytes) > 1% indicates that a LEFT SHIFT is Present. Performed By: #### L 500.4050, L501.5200, L100.0100 #### [facility] [address] [place], [address] Lymphocytes/100 WBC (Bld) 27.5 % Normal 19-41 [facility] Comment on above: Performed By: #### L 500.4050, L501.5200, L100.0100 #### [facility] [address] [place], [address] MCH (RBC) [Entitic mass] 31.0 pg Normal 27.0-32.0 [facility] Comment on above: Performed By: #### L 500.4050, L501.5200, L100.0100 #### [facility] [address] [place], [address] MCHC (RBC) [Mass/Vol] 31.7 g/dL Low 32-36 [facility] Comment on above: Performed By: #### L 500.4050, L501.5200, L100.0100 #### [facility] [address] [place], [address] MCV (RBC) [Entitic vol] 97.7 fL Normal 81-[address] [facility] Comment on above: Performed By: #### L 500.4050, L501.5200, L100.0100 #### [facility] [address] [facility] [place], [address] Monocytes/100 WBC (Bld) 11.0 % High 0-[address] [facility] Comment on above: Performed By: #### L 500.4050, L501.5200, L100.0100 #### [facility] [address] [place], [address] Neutrophils/100 WBC (Bld) 56.6 % Normal 47-70 [facility] Comment on above: Performed By: #### L 500.4050, L501.5200, L100.0100 #### [facility] [address] [place], [address] Nucleated RBC (Bld) [#/Vol] 0 10*3/uL Normal 0-5 [facility] Comment on above: Performed By: #### L 500.4050, L501.5200, L100.0100 #### [facility] [address] [place], [address] Platelet mean volume (Bld) [Entitic vol] 9.4 fL Normal 6.2-12.0 [facility] Comment on above: Performed By: #### L 500.4050, L501.5200, L100.0100 #### [facility] [address] [place], [address] Platelets (Bld) [#/Vol] 129 10*3/uL Low 150-450 [facility] Comment on above: Performed By: #### L 500.4050, L501.5200, L100.0100 #### [facility] [address] [place], [address] RBC (Bld) [#/Vol] 3.87 10*6/uL Low 4.2-5.4 [facility] Comment on above: Performed By: #### L 500.4050, L501.5200, L100.0100 #### [facility] [address] [place], [address] RDW SD 48.2 fl High 35.1-43.9 [facility] Comment on above: Performed By: #### L 500.4050, L501.5200, L100.0100 #### [facility] [address] [place], [address] WBC (Bld) [#/Vol] 3.5 10*3/uL Low 4.4-11.0 [facility] Comment on above: Performed By: #### L 500.4050, L501.5200, L100.0100 #### [facility] [address] [place], [address] CDIFF (PCR)on 03-25-2024 CDIFF A positive C. difficile molecular test does not differentiate between an active C. difficile infection and C. difficile colonization. Use clinical judgement and paired toxin/antigen testing to identify true infection and need for treatment. C diff DNA Spec Ql ANALI+probe Reference Range: Negative [employer]epDiff[employer] GeneXpert: polymerase chain reaction (PCR) 027 027 NAP1-B1 Presumptive Negative *for epidemiolologic???use C. Diff PCR Negative- No toxigenic C. Diff Detected Normal [facility] Comment on above: Performed By: #### M 100.6796, M100.0605, L400.0001, M100.637 ####[facility] [address] [place], [address] CORTISOL SERUMon 03-25-2024 CORTISOL 6.20 ug/dL Normal 3.44-22.45 [facility] Comment on above: Result Comment: Adul t (AM) 5.27 - 22.45 ug/dL Adult (PM) 3.44 - 16.76 ug/dL Please note revised CORTISOL reference range effective 2019. Performed By: #### L 100.0100, L501.5200, L500.2500 #### [facility] [address] [place], [address] Comprehensive Metabolic Prof ilon 07-04-2024 Albumin [Mass/Vol] 3.1 g/dL Low 3.2-5.0 [facility] Comment on above: Performed By: #### L 500.4050, L501.5200, L100.0100 ####[facility] [address] [place], [address] Albumin/Globulin [Mass ratio] 1.2 {ratio} Normal 0.9-2.4 [facility] Comment on above: Performed By: #### L 500.4050, L501.5200, L100.0100 ####[facility] [address] [place], [address] ALK P 65 U/L Normal 45-117 [facility] Comment on above: Performed By: #### L 500.4050, L501.5200, L100.0100 ####[facility] [address] [place], [address] ALT [Catalytic activity/Vol] 9 U/L Low 13-56 [facility] Comment on above: Performed By: #### L 500.4050, L501.5200, L100.0100 ####[facility] [address] [place], [address] AST [Catalytic activity/Vol] 17 U/L Normal 15-37 [facility] Comment on above: Performed By: #### L 500.4050, L501.5200, L100.0100 ####[facility] [address] [place], [address] Bilirubin [Mass/Vol] 0.40 mg/dL Normal 0.20-1.00 [facility] Comment on above: Result Comment: For patients on eltrombopag therapy, use of Dimension Randolph TBIL is not recommended. Performed By: #### L 500.4050, L501.5200, L100.0100 ####[facility] [address] [place], [address] BUN/CRE 13.5 RATIO Normal 10-20 [facility] Comment on above: Performed By: #### L 500.4050, L501.5200, L100.0100 ####[facility] [address] [place], [address] CA,Total 9.0 mg/dL Normal 8.5-10.1 [facility] Comment on above: Performed By: #### L 500.4050, L501.5200, L100.0100 ####[facility] [address] [place], [address] Chloride [Moles/Vol] 111 mmol/L High 98-107 [facility] Comment on above: Performed By: #### L 500.4050, L501.5200, L100.0100 ####[facility] [address] [place], [address] CO2 [Moles/Vol] 26.0 mmol/L Normal 21.0-32.0 [facility] Comment on above: Performed By: #### L 500.4050, L501.5200, L100.0100 ####[facility] [address] [place], [address] Creatinine [Mass/Vol] 0.67 mg/dL Normal 0.55-1.02 [facility] Comment on above: Result Comment: The validity of the calculated GFR GFRAA in patients over 70 years has not been determined. Clinical correlation is essential. Performed By: #### L 500.4050, L501.5200, L100.0100 ####[facility] [address] [place], [address] ECRCL 63.94 ml/min Normal [facility] Comment on above: Performed By: #### L 500.4050, L501.5200, L100.0100 ####[facility] [address] [place], [address] EST GFR - AA 109 mL/min Normal >60 [facility] Comment on above: Result Comment: Afri can Nicaraguan GFR Calc Performed By: #### L 500.4050, L501.5200, L100.0100 ####[facility] [address] [place], [address] GAP 6 Normal 5-15 [facility] Comment on above: Performed By: #### L 500.4050, L501.5200, L100.0100 ####[facility] [address] [place], [address] GFR/1.73 sq M.predicted among non-blacks MDRD (S/P/Bld) [Vol rate/Area] 90 mL/min/{1.73_m2} Normal >60 [facility] Comment on above: Result Comment: Non- GFR Calc Performed By: #### L 500.4050, L501.5200, L100.0100 ####[facility] [address] [place], [address] Globulin (S) [Mass/Vol] 2.5 g/dL Normal 2.2-4.2 [facility] Comment on above: Performed By: #### L 500.4050, L501.5200, L100.0100 ####[facility] [address] [place], [address] Glucose [Mass/Vol] 102 mg/dL Normal 74-106 [facility] Comment on above: Result Comment: Fast ing Glucose result from 100 to 125 mg/dL suggests IMPAIRED HOMEOSTASIS per A.D.A. criteria. Performed By: #### L 500.4050, L501.5200, L100.0100 ####[facility] [address] [place], [address] Potassium [Moles/Vol] 3.4 mmol/L Low 3.5-5.1 [facility] Comment on above: Performed By: #### L 500.4050, L501.5200, L100.0100 ####[facility] [address] [place], [address] Sodium [Moles/Vol] 143 mmol/L Normal 136-145 [facility] Comment on above: Performed By: #### L 500.4050, L501.5200, L100.0100 ####[facility] [address] [place], [address] T PROT 5.6 g/dL Low 6.4-8.2 [facility] Comment on above: Performed By: #### L 500.4050, L501.5200, L100.0100 ####[facility] [address] [place], [address] Urea nitrogen [Mass/Vol] 9 mg/dL Normal 7-18 [facility] Comment on above: Performed By: #### L 500.4050, L501.5200, L100.0100 ####[facility] [address] [place], [address] ENTERIC PATHOGEN PANEL STOOL on 03-25-2024 EP PANEL EP RESULTS CALLED TO BENEDICT ROSALES RN PCU 03-25-24 AT 1810PM MAF SENT TO CAMPYLOBACTER Not Detected Norovirus A Norovirus Detected A Rotavirus Not Detected Salmonella Not Detected Shiga Toxin Not Detected Shigella sp. Not Detected VIBRIO A Vibrio Detected A Yersinia Not Detected Vibrio Species Norovirus Normal [facility] Comment on above: Performed By: #### M 100.6796, M100.0605, L400.0001, M100.637 ####[facility] [address] [place], [address] Magnesiumon 03-25-2024 Magnesium [Mass/Vol] 1.5 mg/dL Low 1.6-2.6 [facility] Comment on above: Performed By: #### L 500.4050, L501.5200, L100.0100 ####[facility] [address] [place], [address] Stool Lactoferrin/WBCon -0 WBCST Normal Reference Ran ge = Negative Fecal WBC Lactoferrin Negative: No Fecal WBC Lactoferrin present Normal [facility] Comment on above: Performed By: #### M 100.6796, M100.0605, L400.0001, M100.637 ####[facility] [address] [place], [address] Vitamin B12on 03-25-2024 Cobalamin (Vitamin B12) [Mass/Vol] 824 pg/mL Normal 211-911 [facility] Comment on above: Performed By: #### L 100.0100, L501.5200, L500.2500 #### [facility] [address] [place], [address] Vitamin D,25 Hydroxyon 03-25 Vitamin D 25-OH 53.3 ng/mL Normal [facility] Comment on above: Result Comment: Mona min D 25(OH) Status Range Deficiency <20 ng/mL (50nmol/L) Insufficiency 20 - 30 ng/mL (50 - 75 nmol/L) Sufficiency 30 - 100 ng/mL (75 - 250 nmol/L) Toxicity >100 ng/mL (>250 nmol/L) Performed By: #### L 100.0100, L501.5200, L500.2500 #### [facility] [address] [place], [address] Abdomen/Pelvis W IV Cont ONL Yon 03-24-2024 Abdomen/Pelvis W IV Cont ONLY [facility] Imaging Services [address] [place] [address] Abdomen/Pelvis W IV Cont ONLY MR#: [id number] Acct: [id number] Name: LISA UP Rep #: [id number] : 1945 F 78 From: Jay Parks PCP: Dr. Sylvia Lizama MD Status: REG ER Study: Abdomen/Pelvis W IV Cont ONLY Date of Exam: Exam# [id number] Ordering Dr: Rose Marie Joyner [place] [id number] STUDY: CT ABDOMEN AND PELVIS WITH CONTRAST [...] Marie Joyner MD; Dr. Sylvia Lizama MD Oxyhydrogen Welder: Signed Normal [facility] Basic Metabolic Profile (BMP )on 03-24-2024 BUN/CRE 15.3 RATIO Normal 10-20 [facility] Comment on above: Performed By: #### L 503.6005, L100.0100, L501.2450, L500.2500, L500.3400 ####[facility] [address] [place], [address] CA,Total 9.5 mg/dL Normal 8.5-10.1 [facility] Comment on above: Performed By: #### L 503.6005, L100.0100, L501.2450, L500.2500, L500.3400 ####[facility] [address] [place], [address] Chloride [Moles/Vol] 106 mmol/L Normal 98-107 [facility] Comment on above: Performed By: #### L 503.6005, L100.0100, L501.2450, L500.2500, L500.3400 ####[facility] [address] [place], [address] CO2 [Moles/Vol] 27.0 mmol/L Normal 21.0-32.0 [facility] Comment on above: Performed By: #### L 503.6005, L100.0100, L501.2450, L500.2500, L500.3400 ####[facility] [address] [place], [address] Creatinine [Mass/Vol] 0.72 mg/dL Normal 0.55-1.02 [facility] Comment on above: Result Comment: The validity of the calculated GFR GFRAA in patients over 70 years has not been determined. Clinical correlation is essential. Performed By: #### L 503.6005, L100.0100, L501.2450, L500.2500, L500.3400 ####[facility] [address] [place], [address] ECRCL 63.89 ml/min Normal [facility] Comment on above: Performed By: #### L 503.6005, L100.0100, L501.2450, L500.2500, L500.3400 ####[facility] [address] [place], [address] EST GFR - AA 100 mL/min Normal >60 [facility] Comment on above: Result Comment: Afri can Nicaraguan GFR Calc Performed By: #### L 503.6005, L100.0100, L501.2450, L500.2500, L500.3400 ####[facility] [address] [place], [address] GAP 7 Normal 5-15 [facility] Comment on above: Performed By: #### L 503.6005, L100.0100, L501.2450, L500.2500, L500.3400 ####[facility] [address] [place], [address] GFR/1.73 sq M.predicted among non-blacks MDRD (S/P/Bld) [Vol rate/Area] 83 mL/min/{1.73_m2} Normal >60 [facility] Comment on above: Result Comment: Non- GFR Calc Performed By: #### L 503.6005, L100.0100, L501.2450, L500.2500, L500.3400 ####[facility] [address] [place], [address] Glucose [Mass/Vol] 115 mg/dL High 74-106 [facility] Comment on above: Result Comment: Fast ing Glucose result from 100 to 125 mg/dL suggests IMPAIRED HOMEOSTASIS per A.D.A. criteria. Performed By: #### L 503.6005, L100.0100, L501.2450, L500.2500, L500.3400 ####[facility] [address] [place], [address] Potassium [Moles/Vol] 3.5 mmol/L Normal 3.5-5.1 [facility] Comment on above: Performed By: #### L 503.6005, L100.0100, L501.2450, L500.2500, L500.3400 ####[facility] [address] [place], [address] Sodium [Moles/Vol] 140 mmol/L Normal 136-145 [facility] Comment on above: Performed By: #### L 503.6005, L100.0100, L501.2450, L500.2500, L500.3400 ####[facility] [address] [place], [address] Urea nitrogen [Mass/Vol] 11 mg/dL Normal 7-18 [facility] Comment on above: Performed By: #### L 503.6005, L100.0100, L501.2450, L500.2500, L500.3400 ####[facility] [address] [place], [address] Brain/Head without Contrasto n 03-24-2024 Brain/Head without Contrast [facility] Imaging Services [address] [place] [address] Brain/Head without Contrast MR#: [id number] Acct: [id number] Name: LISA UP Rep #: [id number] : 1945 F 78 From: Jay Parks PCP: Dr. Sylvia Lizama MD Status: REG ER Study: Brain/Head without Contrast Date of Exam: 12/13 Exam# [id number] Ordering Dr: Rose Marie Joyner [place] [id number] INDICATION: HTN, hallucinations EXAMINATION: CT BRAIN - [...] Marie Joyner MD; Dr. Sylvia Lizama MD Oxyhydrogen Welder: Signed Normal [facility] CBC W/Diff, Automatedon 07-0 Absolute Lymph 1.08 X10 3/uL Normal 0.83-4.51 [facility] Comment on above: Performed By: #### L 503.6005, L100.0100, L501.2450, L500.2500, L500.3400 ####[facility] [address] [place], [address] Absolute Neut 3.2 X10 3/uL Normal 2.0-7.7 [facility] Comment on above: Performed By: #### L 503.6005, L100.0100, L501.2450, L500.2500, L500.3400 ####[facility] [address] [place], [address] Basophils/100 WBC (Bld) 0.4 % Normal 0-[address] [facility] Comment on above: Performed By: #### L 503.6005, L100.0100, L501.2450, L500.2500, L500.3400 ####[facility] [address] [place], [address] Eosinophils/100 WBC (Bld) 3.0 % Normal 0-5 [facility] Comment on above: Performed By: #### L 503.6005, L100.0100, L501.2450, L500.2500, L500.3400 ####[facility] [address] [place], [address] Erythrocyte distribution width (RBC) [Ratio] 13.2 % Normal 11.6-14.6 [facility] Comment on above: Performed By: #### L 503.6005, L100.0100, L501.2450, L500.2500, L500.3400 ####[facility] [address] [place], [address] Hematocrit (Bld) [Volume fraction] 40.9 % Normal 37-47 [facility] Comment on above: Performed By: #### L 503.6005, L100.0100, L501.2450, L500.2500, L500.3400 ####[facility] [address] [place], [address] Hemoglobin (Bld) [Mass/Vol] 13.2 g/dL Normal 12.0-15.0 [facility] Comment on above: Performed By: #### L 503.6005, L100.0100, L501.2450, L500.2500, L500.3400 ####[facility] [address] [place], [address] IG% 0.600 Normal 0.0-0.9 [facility] Comment on above: Result Comment: IG% - Immature Granulocytes (promyelocytes, myelocytes and metamyelocytes) > 1% indicates that a LEFT SHIFT is Present. Performed By: #### L 503.6005, L100.0100, L501.2450, L500.2500, L500.3400 ####[facility] [address] [place], [address] Lymphocytes/100 WBC (Bld) 21.8 % Normal 19-41 [facility] Comment on above: Performed By: #### L 503.6005, L100.0100, L501.2450, L500.2500, L500.3400 ####[facility] [address] [place], [address] MCH (RBC) [Entitic mass] 30.8 pg Normal 27.0-32.0 [facility] Comment on above: Performed By: #### L 503.6005, L100.0100, L501.2450, L500.2500, L500.3400 ####[facility] [address] [place], [address] MCHC (RBC) [Mass/Vol] 32.3 g/dL Normal 32-36 [facility] Comment on above: Performed By: #### L 503.6005, L100.0100, L501.2450, L500.2500, L500.3400 ####[facility] [address] [place], [address] MCV (RBC) [Entitic vol] 95.6 fL Normal 81-[address] [facility] Comment on above: Performed By: #### L 503.6005, L100.0100, L501.2450, L500.2500, L500.3400 ####[facility] [address] [place], [address] Monocytes/100 WBC (Bld) 8.7 % Normal 0-[address] [facility] Comment on above: Performed By: #### L 503.6005, L100.0100, L501.2450, L500.2500, L500.3400 ####[facility] [address] [place], [address] Neutrophils/100 WBC (Bld) 65.5 % Normal 47-70 [facility] Comment on above: Performed By: #### L 503.6005, L100.0100, L501.2450, L500.2500, L500.3400 ####[facility] [address] [place], [address] Nucleated RBC (Bld) [#/Vol] 0 10*3/uL Normal 0-5 [facility] Comment on above: Performed By: #### L 503.6005, L100.0100, L501.2450, L500.2500, L500.3400 ####[facility] [address] [place], [address] Platelet mean volume (Bld) [Entitic vol] 9.5 fL Normal 6.2-12.0 [facility] Comment on above: Performed By: #### L 503.6005, L100.0100, L501.2450, L500.2500, L500.3400 ####[facility] [address] [place], [address] Platelets (Bld) [#/Vol] 143 10*3/uL Low 150-450 [facility] Comment on above: Performed By: #### L 503.6005, L100.0100, L501.2450, L500.2500, L500.3400 ####[facility] [address] [place], [address] RBC (Bld) [#/Vol] 4.28 10*6/uL Normal 4.2-5.4 [facility] Comment on above: Performed By: #### L 503.6005, L100.0100, L501.2450, L500.2500, L500.3400 ####[facility] [address] [place], [address] RDW SD 46.8 fl High 35.1-43.9 [facility] Comment on above: Performed By: #### L 503.6005, L100.0100, L501.2450, L500.2500, L500.3400 ####[facility] [address] [place], [address] WBC (Bld) [#/Vol] 5.0 10*3/uL Normal 4.4-11.0 [facility] Comment on above: Performed By: #### L 503.6005, L100.0100, L501.2450, L500.2500, L500.3400 ####[facility] [address] [place], [address] Emergency Department Summary on 03-24-2024 Emergency Department Summary [facility] Medical Records Department [address] [place] [address] Emergency Department Summary 03/24/24 MR#: [id number] Acct: [id number] Name: LISA UP Rep #: [id number] : 1945 78 From: Rose Marie Joyner MD PCP: Dr. Sylvia Lizama MD Status:ADM IN Location: [address] History of Present Illness Chief Complaint: Diarrhea Informant: patient Onset/Context/Timing Onset: Month(s) Narrative Narrative: Patient presents with 2-month history of diarrhea. She states that she was having frequent stools and would take tidt-ugv-uzflcoq antidiarrheal medicine. She then would get constipated [...] does report some chills but no fever. [facility] Medical History DVT (deep venous thrombosis) Post-menopausal [...] vaccine, mRNA, Allergy Anaphylaxis Verified 03/24/24 09:30 [id number], erythromycin base Allergy Rash Verified 03/24/24 09:30 [...] 03/24/24 13:30 (more content not included)... Normal [facility] Folates, (Folic Acid)on FOLATES 73.50 ng/mL High 3.1-55.4 [facility] Comment on above: Performed By: #### L 100.0100, L501.5200, L500.2500 #### [facility] [address] [place], [address] H AND P Exam - Hospitaliston 03-24-2024 H&P Exam - Hospitalist [facility] Medical Records Department [address] [place] [address] H P Exam - Hospitalist 03/24/24 1522 MR#: [id number] Acct: [id number] Name: LISA UP Rep #: [id number] : 1945 78 From: Mari aIsabel Glover MD PCP: Dr. Sylvia Lizama MD Status:ADM IN Location: [facility] [id number] HPI - General General Date of Admission: 03/24/24 Date of Service: 03/24/24 Chief Complaint: Gen weakness, diarrhea, headaches HPI Narrative LISA UP, is a 78-year-old female with history of hypertension, GERD, DVT, hypothyroidism morbid obesity, RLS who presented to [facility] ED 03/24/2024 due to diarrhea and [...] has some chronic swelling in lower extremities. [facility] Medical History DVT (deep venous thrombosis) Post-menopausal [...] vaccine, mRNA, Allergy Anaphylaxis Verified 03/24/24 09:30 [id number], erythromycin base Allergy Rash Verified 03/24/24 09:30 [...] Temperature Tem (more content not included)... Normal [facility] Lactic Acidon 03-24-2024 Lactate [Moles/Vol] 1.1 mmol/L Normal 0.4-1.9 [facility] Comment on above: Order Comment: Y Performed By: #### L 503.6005, L100.0100, L501.2450, L500.2500, L500.3400 ####[facility] [address] [facility] [place], [place], [id number] Lipaseon 03-24-2024 Lipase [Catalytic activity/Vol] 34 U/L Normal 13-75 [facility] Comment on above: Result Comment: Katty gardner note: LIPASE revised reference range effective 22. New Lipase methodology. Expected to produce lower values than the previous assay method. NEW Reference Range: 13 - 75 U/L Performed By: #### L 503.6005, L100.0100, L501.2450, L500.2500, L500.3400 ####[facility] [address] [place], [place], [address] Liver Profileon 03-24-2024 Albumin [Mass/Vol] 3.4 g/dL Normal 3.2-5.0 [facility] Comment on above: Performed By: #### L 503.6005, L100.0100, L501.2450, L500.2500, L500.3400 ####[facility] [address] [place], [address] ALK P 75 U/L Normal 45-117 [facility] Comment on above: Performed By: #### L 503.6005, L100.0100, L501.2450, L500.2500, L500.3400 ####[facility] [address] [place], [address] ALT [Catalytic activity/Vol] 10 U/L Low 13-56 [facility] Comment on above: Performed By: #### L 503.6005, L100.0100, L501.2450, L500.2500, L500.3400 ####[facility] [address] [place], [address] AST [Catalytic activity/Vol] 12 U/L Low 15-37 [facility] Comment on above: Performed By: #### L 503.6005, L100.0100, L501.2450, L500.2500, L500.3400 ####[facility] [address] [place], [address] Bilirubin [Mass/Vol] 0.50 mg/dL Normal 0.20-1.00 [facility] Comment on above: Result Comment: For patients on eltrombopag therapy, use of Dimension [place] TBIL is not recommended. Performed By: #### L 503.6005, L100.0100, L501.2450, L500.2500, L500.3400 ####[facility] [address] [place], [address] Bilirubin.direct [Mass/Vol] 0.13 mg/dL Normal 0.00-0.30 [facility] Comment on above: Performed By: #### L 503.6005, L100.0100, L501.2450, L500.2500, L500.3400 ####[facility] [address] [place], [address] Globulin (S) [Mass/Vol] 2.8 g/dL Normal 2.2-4.[address] [facility] Comment on above: Performed By: #### L 503.6005, L100.0100, L501.2450, L500.2500, L500.3400 ####[facility] [address] [place], [address] T PROT 6.2 g/dL Low 6.4-8.2 [facility] Comment on above: Performed By: #### L 503.6005, L100.0100, L501.2450, L500.2500, L500.3400 ####[facility] [address] [place], [address] Magnesiumon 03-24-2024 Magnesium [Mass/Vol] 1.7 mg/dL Normal 1.6-2.6 [facility] Comment on above: Performed By: #### L 100.0100, L501.5200, L500.2500 #### [facility] [address] [place], [address] Phosphoruson 03-24-2024 Phosphate [Mass/Vol] 3.3 mg/dL Normal 2.5-4.9 [facility] Comment on above: Performed By: #### L 100.0100, L501.5200, L500.2500 #### [facility] [address] [place], [address] T4 Free Directon 03-24-2024 T4 FREE DIRECT 1.43 ng/dL Normal 0.76-1.46 [facility] Comment on above: Performed By: #### L 100.0100, L501.5200, L500.2500 #### [facility] [address] [place], [address] Thyroid Stim Hormone (TSH)on 03-24-2024 TSH 2.10 uIU/mL Normal 0.358-3.74 [facility] Comment on above: Performed By: #### L 100.0100, L501.5200, L500.2500 #### [facility] [address] [place], [address] Urinalysis, Completeon 03-24 BACTERIA 0 SEEN Normal None Seen [facility] Comment on above: Order Comment: CLEAN CATCH Performed By: #### M 100.6796, M100.0605, L400.0001, M100.637 ####[facility] [address] [place], [address] EPI,SQUAMOUS 0 SEEN Normal 5-10 [facility] Comment on above: Order Comment: CLEAN CATCH Performed By: #### M 100.6796, M100.0605, L400.0001, M100.637 ####[facility] [address] [place], [address] Mucus Ql (Urine sed) 0 SEEN Normal [facility] Comment on above: Order Comment: CLEAN CATCH Performed By: #### M 100.6796, M100.0605, L400.0001, M100.637 ####[facility] [address] [place], [address] RBC 0 SEEN Normal 0-5 [facility] Comment on above: Order Comment: CLEAN CATCH Performed By: #### M 100.6796, M100.0605, L400.0001, M100.637 ####[facility] [address] [place], [address] WBC 0 SEEN Normal 0-5 [facility] Comment on above: Order Comment: CLEAN CATCH Performed By: #### M 100.6796, M100.0605, L400.0001, M100.637 ####[facility] [id number] [place], [address] CBC W Auto Differential pane l (Bld)on 03-15-2024 Basophils (Bld) [#/Vol] NINF C [facility] Basophils/100 WBC (Bld) 0.1 % C [facility] Differential cell count method Nom (Bld) Auto [facility] Eosinophils (Bld) [#/Vol] 0.13 10*3/uL [facility] [facility] Eosin[facility]/100 WBC (Bld) 1.8 % [facility] Erythrocyte distribution width (RBC) [Ratio] 13.1 % 11.5 - 15.0 % [facility] Hematocrit (Bld) [Volume fraction] 39.7 % 36.0 - 46.0 % [facility] Hemoglobin (Bld) [Mass/Vol] 13.0 g/dL 11.5 - 15.5 g/dL [facility] Immature granulocytes (Bld) [#/Vol] 0.03 10*3/uL [facility] Immature granulocytes/100 WBC (Bld) 0.4 % [facility] Interpretation and review of laboratory results Abnormal [facility] Lymphocytes (Bld) [#/Vol] 1.01 10*3/uL [facility] Lymphocytes/100 WBC (Bld) 13.9 % [facility] MCH (RBC) [Entitic mass] 31.8 pg 26.0 - 34.0 pg [facility] MCHC (RBC) [Mass/Vol] 32.7 g/dL 30.5 - 36.0 g/dL [facility] MCV (RBC) [Entitic vol] 97.1 fL 80.0 - 100.0 fL [facility] Monocytes (Bld) [#/Vol] 0.48 10*3/uL [facility] Monocytes/100 WBC (Bld) 6.6 % [facility] Neutrophils (Bld) [#/Vol] 5.63 10*3/uL [facility] Neutrophils/100 WBC (Bld) 77.2 % [facility] Nucleated RBC (Bld) [#/Vol] [facility] Nucleated RBC/100 WBC (Bld) [Ratio] 0.0 % /100 WBC [facility] Platelet mean volume (Bld) [Entitic vol] 10.5 fL 9.0 - 12.7 fL [facility] Platelets (Bld) [#/Vol] 136 10*3/uL Low [facility] Comment on above: Results checked and verified.No clot detected. RBC (Bld) [#/Vol] 4.09 10*6/uL 3.90 - 5.2 0 m/uL [facility] WBC (Bld) [#/Vol] 7.29 10*3/uL [facility] ESR Westergren method (Bld) [Velocity]on 03-15-2024 ESR (Bld) [Velocity] 12 mm/h [facility] Interpretation and review of laboratory results Normal [facility] STREP A MOLECULAR (POC)on Procedural Control Valid [facility] Strep A (POCT) Negative Negative [facility] CBC W Auto Differential pane l (Bld)on 03-04-2024 Basophils (Bld) [#/Vol] [facility] Basophils/100 WBC (Bld) 0.4 % [facility] Differential cell count method Nom (Bld) Auto [facility] Eosinophils (Bld) [#/Vol] 0.17 10*3/uL [facility] Eosinophils/100 WBC (Bld) 3.1 % [facility] Erythrocyte distribution width (RBC) [Ratio] 12.9 % 11.5 - 15.0 % [facility] Hematocrit (Bld) [Volume fraction] 40.7 % 36.0 - 46.0 % [facility] Hemoglobin (Bld) [Mass/Vol] 12.9 g/dL 11.5 - 15.5 g/dL [facility] Immature granulocytes (Bld) [#/Vol] NINF [facility] Immature granulocytes/100 WBC (Bld) 0.2 % [facility] Interpretation and review of laboratory results Abnormal [facility] Lymphocytes (Bld) [#/Vol] 1.29 10*3/uL [facility] Lymphocytes/100 WBC (Bld) 23.5 % [facility] MCH (RBC) [Entitic mass] 31.5 pg 26.0 - 34.0 pg [facility] MCHC (RBC) [Mass/Vol] 31.7 g/dL 30.5 - 36.0 g/dL [facility] MCV (RBC) [Entitic vol] 99.3 fL 80.0 - 100.0 fL [facility] Monocytes (Bld) [#/Vol] 0.53 [facility] Monocytes/100 WBC (Bld) 9.7 % [facility] Neutrophils (Bld) [#/Vol] 3.46 10*3/uL [facility] Neutrophils/100 WBC (Bld) 63.1 % [facility] Nucleated RBC (Bld) [#/Vol] NINF [facility] Nucleated RBC/100 WBC (Bld) [Ratio] 0.0 % /100 WBC [facility] Platelet mean volume (Bld) [Entitic vol] 10.6 fL 9.0 - 12.7 fL [facility] Platelets (Bld) [#/Vol] 136 10*3/uL Low [facility] RBC (Bld) [#/Vol] 4.10 10*6/uL 3.90 - 5.2 0 m/uL [facility] WBC (Bld) [#/Vol] 5.48 10*3/uL [facility] UA DIP, URINE (POC)on 2023 BILIRUBIN UA (POCT) Negative Negative [facility] CLARITY UA (POCT) Clear [facility] COLOR UA (POCT) Yellow [facility] GLUCOSE UA (POCT) Negative Negative mg/dL [facility] Hemoglobin Ql (U) Negative Negative [facility] KETONE UA (POCT) Trace Negative mg/dL [facility] LEUKOCYTES UA (POCT) Small Abnormal Negative [facility] NITRITE UA (POCT) Negative Negative [facility] PH UA (POCT) 6.0 4.5 - 8.0 [facility] Protein Ql (U) 30 mg/dL Abnormal Negative mg/dL [facility] SPECIFIC GRAVITY UA (POCT) 1.025 1.005 - 1.030 [facility] UROBILINOGEN UA (POCT) 0.2 E.U./dL Ana l E.U./dL [facility] ROXANNE SCREENING W TOMOon 07-08 [facility] CBC W Auto Differential pane l (Bld)on 06-13-2023 Basophils (Bld) [#/Vol] <0.11 k/uL [facility] Basophils/100 WBC (Bld) 0.8 % [facility] Differential cell count method Nom (Bld) Auto [facility] Eosinophils (Bld) [#/Vol] 0.11 10*3/uL <0.46 k/uL [facility] Eosinophils/100 WBC (Bld) 4.2 % [facility] Erythrocyte distribution width (RBC) [Ratio] 13.1 % 11.5 - 15.0 % [facility] Hematocrit (Bld) [Volume fraction] 36.9 % 36.0 - 46.0 % [facility] Hemoglobin (Bld) [Mass/Vol] 12.2 g/dL 11.5 - 15.5 g/dL [facility] Immature granulocytes (Bld) [#/Vol] 0.05 10*3/uL <0.10 k/uL [facility] Immature granulocytes/100 WBC (Bld) 1.9 % [facility] Lymphocytes (Bld) [#/Vol] 0.41 10*3/uL Low 1.00 - 4.00 k/uL [facility] Lymphocytes/100 WBC (Bld) 15.7 % [facility] MCH (RBC) [Entitic mass] 32.1 pg 26.0 - 34.0 pg [facility] MCHC (RBC) [Mass/Vol] 33.1 g/dL 30.5 - 36.0 g/dL [facility] MCV (RBC) [Entitic vol] 97.1 fL 80.0 - 100.0 fL [facility] Monocytes (Bld) [#/Vol] 0.32 10*3/uL <0.87 k/uL [facility] Monocytes/100 WBC (Bld) 12.3 % [facility] Neutrophils (Bld) [#/Vol] 1.70 10*3/uL 1.45 - 7.50 k/uL [facility] Neutrophils/100 WBC (Bld) 65.1 % [facility] Nucleated RBC (Bld) [#/Vol] <0.01 k/uL [facility] Nucleated RBC/100 WBC (Bld) [Ratio] 0.0 /100 WBC [facility] Platelet mean volume (Bld) [Entitic vol] 9.6 fL 9.0 - 12.7 fL [facility] Platelets (Bld) [#/Vol] 102 10*3/uL Low 150 - 400 k/uL [facility] RBC (Bld) [#/Vol] 3.80 10*6/uL Low 3.90 - 5.2 0 m/uL [facility] WBC (Bld) [#/Vol] 2.61 10*3/uL Low 3.70 - 11.00 k/uL [facility] Comprehensive metabolic 2000 panelon 06-13-2023 Albumin [Mass/Vol] 3.8 g/dL Low 3.9 - 4.9 g/dL [facility] ALP [Catalytic activity/Vol] 68 U/L 34 - 123 U/L [facility] ALT [Catalytic activity/Vol] 6 U/L Low 7 - 38 U/L [facility] Anion gap [Moles/Vol] 10 mmol/L 9 - 18 mmol/L [facility] AST [Catalytic activity/Vol] 19 U/L 13 - 35 U/L [facility] Bilirubin [Mass/Vol] 0.3 mg/dL 0.2 - 1 .3 mg/dL [facility] Calcium [Mass/Vol] 9.3 mg/dL 8.5 - 10. 2 mg/dL [facility] Chloride [Moles/Vol] 106 mmol/L High 97 - 10 5 mmol/L [facility] CO2 [Moles/Vol] 25 mmol/L 22 - 30 mmol/L [facility] Creatinine [Mass/Vol] 0.81 mg/dL 0.58 - 0.96 mg/dL [facility] Estimated Glomerular Filtration Rate 74 mL/min/1.73m >=60 mL/min/1.73 m [facility] Glucose [Mass/Vol] 114 mg/dL High 74 - 99 mg/dL [facility] Potassium [Moles/Vol] 3.8 mmol/L 3.7 - 5.1 mmol/L [facility] Protein [Mass/Vol] 6.0 g/dL Low 6.3 - 8.0 g/dL [facility] Sodium [Moles/Vol] 141 mmol/L 136 - 144 mmol/L [facility] Urea nitrogen [Mass/Vol] 18 mg/dL 7 - 21 mg/dL [facility] Laboratory - Chemistry and C hemistry - challengeon 06-06-2023 Creatinine [Mass/Vol] 0.79 mg/dL 0.58 - 0.96 mg/dL [facility] No Panel Informationon 06-06 Estimated Glomerular Filtration Rate 76 mL/min/1.73m >=60 mL/min/1.73 m [facility] XR Cervical spine AP and Lat eral and obliqueon 04-07-2023 IMPRESSION: No fracture or malalignment [employer]der: IVAN Transcribe Date/Time: Apr 07 2023 2:18P [...] soft tissue swelling. DIVISION OF RADIOLOGY Provider, [facility] - 04/07/2023 * * *Final [...] swelling. IMPRESSION IMPRESSION: No fracture or malalignment [employer]der: IVAN Transcribe Date/Time: Apr 07 2023 2:18P Dictated by : SUNIL GARCÍA MD This examination was interpreted and the report reviewed and electronically signed by: SUNIL GARCÍA MD on Apr 07 2023 2:23PM EST [facility] XR Cervical spine AP and Lat eral and obliqueOrdered By: Ccf Provider on 04-07-2023 [facility] XR Cervical spine AP and Lat eral and obliqueon 04-03-2023 Radiology Study observation (narrative) [facility] XR SHOULDER GENERAL 3V OR MO RE AP/TRUE AP/OTHER LEFTon 03-24-2023 [facility] XR Shoulder - left 3 Viewson 03-24-2023 IMPRESSION: No acute bony abnormality. [employer]der: IVAN Transcribe Date/Time: Mar 24 2023 2:10P Dictated by : YAMIL TAM MD This examination was interpreted and the report reviewed and electronically signed by: YAMIL TAM MD on Mar 24 2023 2:11PM [facility] DIVISION OF RADIOLOGY * * *Final Report* [...] spaces are preserved. DIVISION OF RADIOLOGY Provider, [facility] - 03/24/2023 * * *Final [...] preserved. IMPRESSION IMPRESSION: No acute bony abnormality. [employer] [facility] Transcribe Date/Time: Mar 24 2023 2:10P Dictated by : YAMIL TAM MD This examination was interpreted and the report reviewed and electronically signed by: YAMIL TAM MD on Mar 24 2023 2:11PM EST [facility] Radiology Study observation (narrative) [facility] XR Shoulder - left 3 ViewsOr dered By: Ccf Provider on 03-24-2023 [facility] CBC W Auto Differential pane l (Bld)on 12-30-2022 Basophils (Bld) [#/Vol] <0.11 k/uL [facility] Basophils/100 WBC (Bld) 0.3 % [facility] Differential cell count method Nom (Bld) Auto [facility] Eosinophils (Bld) [#/Vol] <0.46 k/uL [facility] Eosinophils/100 WBC (Bld) 0.0 % [facility] Erythrocyte distribution width (RBC) [Ratio] 13.4 % 11.5 - 15.0 % [facility] Hematocrit (Bld) [Volume fraction] 37.5 % 36.0 - 46.0 % [facility] Hemoglobin (Bld) [Mass/Vol] 12.3 g/dL 11.5 - 15.5 g/dL [facility] Immature granulocytes (Bld) [#/Vol] 0.03 10*3/uL <0.10 k/uL [facility] Immature granulocytes/100 WBC (Bld) 0.8 % [facility] Lymphocytes (Bld) [#/Vol] 0.99 10*3/uL Low 1.00 - 4.00 k/uL [facility] Lymphocytes/100 WBC (Bld) 27.4 % [facility] MCH (RBC) [Entitic mass] 31.9 pg 26.0 - 34.0 pg [facility] MCHC (RBC) [Mass/Vol] 32.8 g/dL 30.5 - 36.0 g/dL [facility] MCV (RBC) [Entitic vol] 97.4 fL 80.0 - 100.0 fL [facility] Monocytes (Bld) [#/Vol] 0.53 10*3/uL <0.87 k/uL [facility] Monocytes/100 WBC (Bld) 14.7 % [facility] Neutrophils (Bld) [#/Vol] 2.05 10*3/uL 1.45 - 7.50 k/uL [facility] Neutrophils/100 WBC (Bld) 56.8 % [facility] Nucleated RBC (Bld) [#/Vol] <0.01 k/uL [facility] Nucleated RBC/100 WBC (Bld) [Ratio] 0.0 /100 WBC [facility] Platelet mean volume (Bld) [Entitic vol] 9.8 fL 9.0 - 12.7 fL [facility] Platelets (Bld) [#/Vol] 141 10*3/uL Low 150 - 400 k/uL [facility] RBC (Bld) [#/Vol] 3.85 10*6/uL Low 3.90 - 5.2 0 m/uL [facility] WBC (Bld) [#/Vol] 3.61 10*3/uL Low 3.70 - 11.00 k/uL [facility] Comprehensive metabolic 2000 panelon 12-30-2022 Albumin [Mass/Vol] 4.0 g/dL 3.9 - 4.9 g/dL [facility] ALP [Catalytic activity/Vol] 82 U/L 34 - 123 U/L [facility] ALT [Catalytic activity/Vol] 5 U/L Low 7 - 38 U/L [facility] Anion gap [Moles/Vol] 8 mmol/L Low 9 - 18 mmol/L [facility] AST [Catalytic activity/Vol] 18 U/L 13 - 35 U/L [facility] Bilirubin [Mass/Vol] 0.3 mg/dL 0.2 - 1 .3 mg/dL [facility] Calcium [Mass/Vol] 9.6 mg/dL 8.5 - 10. 2 mg/dL [facility] Chloride [Moles/Vol] 104 mmol/L 97 - 10 5 mmol/L [facility] CO2 [Moles/Vol] 28 mmol/L 22 - 30 mmol/L [facility] Creatinine [Mass/Vol] 0.69 mg/dL 0.58 - 0.96 mg/dL [facility] Estimated Glomerular Filtration Rate 88 mL/min/1.73m >=60 mL/min/1.73 m [facility] Glucose [Mass/Vol] 101 mg/dL High 74 - 99 mg/dL [facility] Potassium [Moles/Vol] 4.2 mmol/L 3.7 - 5.1 mmol/L [facility] Protein [Mass/Vol] 6.3 g/dL 6.3 - 8.0 g/dL [facility] Sodium [Moles/Vol] 140 mmol/L 136 - 144 mmol/L [facility] Urea nitrogen [Mass/Vol] 15 mg/dL 7 - 21 mg/dL [facility] HEP B SURF AG SCRNon 023 HBV surface Ag Ql (S) Negative Negative [facility] No Panel Informationon 12-09 [facility] T4/FTI/T4Uon 11-27-2022 FTI 9.3 ug/dL 5.3 - 10.8 ug/dL [facility] T4 [Mass/Vol] 10.7 ug/dL High 5.5 - 10.2 ug/dL [facility] T4 uptake [Mass/Vol] 1.15 0.91 - 1.19 [facility] TSH BLDon 11-27-2022 TSH Qn 1.390 m[IU]/L 0.270 - 4.200 mIU/L [facility] CBC W Auto Differential pane l (Bld)on 11-25-2022 Basophils (Bld) [#/Vol] <0.11 k/uL [facility] Basophils/100 WBC (Bld) 0.5 % [facility] Differential cell count method Nom (Bld) Auto [facility] Eosinophils (Bld) [#/Vol] <0.46 k/uL [facility] Eosinophils/100 WBC (Bld) 0.0 % [facility] Erythrocyte distribution width (RBC) [Ratio] 14.4 % 11.5 - 15.0 % [facility] Hematocrit (Bld) [Volume fraction] 36.7 % 36.0 - 46.0 % [facility] Hemoglobin (Bld) [Mass/Vol] 12.2 g/dL 11.5 - 15.5 g/dL [facility] Immature granulocytes (Bld) [#/Vol] <0.10 k/uL [facility] Immature granulocytes/100 WBC (Bld) 0.3 % [facility] Lymphocytes (Bld) [#/Vol] 0.93 10*3/uL Low 1.00 - 4.00 k/uL [facility] Lymphocytes/100 WBC (Bld) 25.1 % [facility] MCH (RBC) [Entitic mass] 32.3 pg 26.0 - 34.0 pg [facility] MCHC (RBC) [Mass/Vol] 33.2 g/dL 30.5 - 36.0 g/dL [facility] MCV (RBC) [Entitic vol] 97.1 fL 80.0 - 100.0 fL [facility] Monocytes (Bld) [#/Vol] 0.59 10*3/uL <0.87 k/uL [facility] Monocytes/100 W[facility] (Bld) 15.9 % [facility] [#/Vol] 2.16 10*3/uL 1.45 - 7.50 k/uL [facility] Neutrophils/100 WBC (Bld) 58.2 % [facility] Nucleated RBC (Bld) [#/Vol] <0.01 k/uL [facility] Nucleated RBC/100 WBC (Bld) [Ratio] 0.0 /100 WBC [facility] Platelet mean volume (Bld) [Entitic vol] 9.8 fL 9.0 - 12.7 fL [facility] Platelets (Bld) [#/Vol] 100 10*3/uL Low 150 - 400 k/uL [facility] RBC (Bld) [#/Vol] 3.78 10*6/uL Low 3.90 - 5.2 0 m/uL [facility] WBC (Bld) [#/Vol] 3.71 10*3/uL 3.70 - 11.00 k/uL [facility] Comprehensive metabolic 2000 panelon 11-25-2022 Albumin [Mass/Vol] 3.8 g/dL Low 3.9 - 4.9 g/dL [facility] ALP [Catalytic activity/Vol] 73 U/L 34 - 123 U/L [facility] ALT [Catalytic activity/Vol] 5 U/L Low 7 - 38 U/L [facility] Anion gap [Moles/Vol] 8 mmol/L Low 9 - 18 mmol/L [facility] AST [Catalytic activity/Vol] 20 U/L 13 - 35 U/L [facility] Bilirubin [Mass/Vol] 0.3 mg/dL 0.2 - 1 .3 mg/dL [facility] Calcium [Mass/Vol] 9.8 mg/dL 8.5 - 10. 2 mg/dL [facility] Chloride [Moles/Vol] 103 mmol/L 97 - 10 5 mmol/L [facility] CO2 [Moles/Vol] 27 mmol/L 22 - 30 mmol/L [facility] Creatinine [Mass/Vol] 0.76 mg/dL 0.58 - 0.96 mg/dL [facility] Estimated Glomerular Filtration Rate 80 mL/min/1.73m >=60 mL/min/1.73 m [facility] Glucose [Mass/Vol] 99 mg/dL 74 - 99 mg/dL [facility] Potassium [Moles/Vol] 4.6 mmol/L 3.7 - 5.1 mmol/L [facility] Protein [Mass/Vol] 6.0 g/dL Low 6.3 - 8.0 g/dL [facility] Sodium [Moles/Vol] 138 mmol/L 136 - 144 mmol/L [facility] Urea nitrogen [Mass/Vol] 15 mg/dL 7 - 21 mg/dL [facility] LD LACTATE DEHYDROon 023 LDH [Catalytic activity/Vol] 173 U/L 135 - 214 U/L [facility] URIC ACID BLOODon 11-25-2022 Urate [Mass/Vol] 4.1 mg/dL 2.5 - 6.6 mg/dL [facility] CBC W Auto Differential pane l (Bld)on 10-28-2022 Basophils (Bld) [#/Vol] <0.11 k/uL [facility] Bas[facility]/100 WBC (Bld) 0.2 % [facility] Differential cell count method Nom (Bld) Auto [facility] Eosinophils (Bld) [#/Vol] 0.13 10*3/uL <0.46 k/uL [facility] Eosinophils/100 WBC (Bld) 3.2 % [facility] Erythrocyte distribution width (RBC) [Ratio] 14.6 % 11.5 - 15.0 % [facility] Hematocrit (Bld) [Volume fraction] 36.1 % 36.0 - 46.0 % [facility] Hemoglobin (Bld) [Mass/Vol] 11.7 g/dL 11.5 - 15.5 g/dL [facility] Immature granulocytes (Bld) [#/Vol] <0.10 k/uL [facility] Immature granulocytes/100 WBC (Bld) 0.5 % [facility] Lymphocytes (Bld) [#/Vol] 0.66 10*3/uL Low 1.00 - 4.00 k/uL [facility] Lymphocytes/100 WBC (Bld) 16.1 % [facility] MCH (RBC) [Entitic mass] 31.3 pg 26.0 - 34.0 pg [facility] MCHC (RBC) [Mass/Vol] 32.4 g/dL 30.5 - 36.0 g/dL [facility] MCV (RBC) [Entitic vol] 96.5 fL 80.0 - 100.0 fL [facility] Monocytes (Bld) [#/Vol] 0.43 10*3/uL <0.87 k/uL [facility] Monocytes/100 WBC (Bld) 10.5 % [facility] Neutrophils (Bld) [#/Vol] 2.84 10*3/uL 1.45 - 7.50 k/uL [facility] Neutrophils/100 WBC (Bld) 69.5 % [facility] Nucleated RBC (Bld) [#/Vol] <0.01 k/uL [facility] Nucleated RBC/100 WBC (Bld) [Ratio] 0.0 /100 WBC [facility] Platelet mean volume (Bld) [Entitic vol] 9.9 fL 9.0 - 12.7 fL [facility] Platelets (Bld) [#/Vol] 111 10*3/uL Low 150 - 400 k/uL [facility] RBC (Bld) [#/Vol] 3.74 10*6/uL Low 3.90 - 5.2 0 m/uL [facility] WBC (Bld) [#/Vol] 4.09 10*3/uL 3.70 - 11.00 k/uL [facility] Comprehensive metabolic 2000 panelon 10-28-2022 Albumin [Mass/Vol] 3.7 g/dL Low 3.9 - 4.9 g/dL [facility] ALP [Catalytic activity/Vol] 67 U/L 34 - 123 U/L [facility] ALT [Catalytic activity/Vol] Low 7 - 38 U/L [facility] Anion gap [Moles/Vol] 6 mmol/L Low 9 - 18 mmol/L [facility] AST [Catalytic activity/Vol] 20 U/L 13 - 35 U/L [facility] Bilirubin [Mass/Vol] 0.2 mg/dL 0.2 - 1 .3 mg/dL [facility] Calcium [Mass/Vol] 9.1 mg/dL 8.5 - 10. 2 mg/dL [facility] Chloride [Moles/Vol] 105 mmol/L 97 - 10 5 mmol/L [facility] CO2 [Moles/Vol] 27 mmol/L 22 - 30 mmol/L [facility] Creatinine [Mass/Vol] 0.56 mg/dL Low 0.58 - 0.96 mg/dL [facility] Estimated Glomerular Filtration Rate 94 mL/min/1.73m >=60 mL/min/1.73 m [facility] Glucose [Mass/Vol] 95 mg/dL 74 - 99 mg/dL [facility] Potassium [Moles/Vol] 4.0 mmol/L 3.7 - 5.1 mmol/L [facility] Protein [Mass/Vol] 5.6 g/dL Low 6.3 - 8.0 g/dL [facility] Sodium [Moles/Vol] 138 mmol/L 136 - 144 mmol/L [facility] Urea nitrogen [Mass/Vol] 12 mg/dL 7 - 21 mg/dL [facility] LD LACTATE DEHYDROon 023 LDH [Catalytic activity/Vol] 166 U/L 135 - 214 U/L [facility] URIC ACID BLOODon 10-28-2022 Urate [Mass/Vol] 3.4 mg/dL 2.5 - 6.6 mg/dL [facility] CBC W Auto Differential pane l (Bld)on 09-24-2022 Basophils (Bld) [#/Vol] <0.11 k/uL [facility] Basophils/100 WBC (Bld) 0.3 % [facility] Differential cell count method Nom (Bld) Auto [facility] Eosinophils (Bld) [#/Vol] 0.23 10*3/uL <0.46 k/uL [facility] Eosinophils/100 WBC (Bld) 7.0 % [facility] Erythrocyte distribution width (RBC) [Ratio] 14.0 % 11.5 - 15.0 % [facility] Hematocrit (Bld) [Volume fraction] 37.5 % 36.0 - 46.0 % [facility] Hemoglobin (Bld) [Mass/Vol] 12.5 g/dL 11.5 - 15.5 g/dL [facility] Immature granulocytes (Bld) [#/Vol] <0.10 k/uL [facility] Immature granulocytes/100 WBC (Bld) 0.3 % [facility] Lymphocytes (Bld) [#/Vol] 0.43 10*3/uL Low 1.00 - 4.00 k/uL [facility] Lymphocytes/100 WBC (Bld) 13.1 % [facility] MCH (RBC) [Entitic mass] 31.6 pg 26.0 - 34.0 pg [facility] MCHC (RBC) [Mass/Vol] 33.3 g/dL 30.5 - 36.0 g/dL [facility] MCV (RBC) [Entitic vol] 94.9 fL 80.0 - 100.0 fL [facility] Monocytes (Bld) [#/Vol] 0.42 10*3/uL <0.87 k/uL [facility] Monocytes/100 WBC (Bld) 12.8 % [facility] (Bld) [#/Vol] 2.19 10*3/uL 1.45 - 7.50 k/uL [facility] Neutrophils/100 WBC (Bld) 66.5 % [facility] Nucleated RBC (Bld) [#/Vol] <0.01 k/uL [facility] Nucleated RBC/100 WBC (Bld) [Ratio] 0.0 /100 WBC [facility] Platelet mean volume (Bld) [Entitic vol] 9.6 fL 9.0 - 12.7 fL [facility] Platelets (Bld) [#/Vol] 109 10*3/uL Low 150 - 400 k/uL [facility] RBC (Bld) [#/Vol] 3.95 10*6/uL 3.90 - 5.2 0 m/uL [facility] WBC (Bld) [#/Vol] 3.29 10*3/uL Low 3.70 - 11.00 k/uL [facility] Comprehensive metabolic 2000 panelon 09-24-2022 Albumin [Mass/Vol] 3.7 g/dL Low 3.9 - 4.9 g/dL [facility] ALP [Catalytic activity/Vol] 73 U/L 34 - 123 U/L [facility] ALT [Catalytic activity/Vol] 6 U/L Low 7 - 38 U/L [facility] Anion gap [Moles/Vol] 8 mmol/L Low 9 - 18 mmol/L [facility] AST [Catalytic activity/Vol] 21 U/L 13 - 35 U/L [facility] Bilirubin [Mass/Vol] 0.3 mg/dL 0.2 - 1 .3 mg/dL [facility] Calcium [Mass/Vol] 9.7 mg/dL 8.5 - 10. 2 mg/dL [facility] Chloride [Moles/Vol] 104 mmol/L 97 - 10 5 mmol/L [facility] CO2 [Moles/Vol] 27 mmol/L 22 - 30 mmol/L [facility] Creatinine [Mass/Vol] 0.63 mg/dL 0.58 - 0.96 mg/dL [facility] Estimated Glomerular Filtration Rate 91 mL/min/1.73m >=60 mL/min/1.73 m [facility] Glucose [Mass/Vol] 99 mg/dL 74 - 99 mg/dL [facility] Potassium [Moles/Vol] 4.0 mmol/L 3.7 - 5.1 mmol/L [facility] Protein [Mass/Vol] 5.7 g/dL Low 6.3 - 8.0 g/dL [facility] Sodium [Moles/Vol] 139 mmol/L 136 - 144 mmol/L [facility] Urea nitrogen [Mass/Vol] 11 mg/dL 7 - 21 mg/dL [facility] Laboratory - Chemistry and C hemistry - challengeon 09-24-2022 LDH [Catalytic activity/Vol] 184 U/L 135 - 214 U/L [facility] Urate [Mass/Vol] 4.2 mg/dL 2.5 - 6.6 mg/dL [facility] No Panel Informationon 09-24 [facility] Absolute lymphocyte counton 08-04-2022 Lymphocytes Auto (Unsp spec) [#/Vol] 0.57 10*3/uL 0.83-4.51 [facility] Work Phone: Basophil percentageon 2021 Basophils/100 WBC (Bld) 0.3 % 0-[address] [facility] Work Phone: Bilirubin [Mass/Vol] 0.20 mg/dL 0.20-1.00 [facility] Work Phone: Comment on above: For patients on eltr ombopag therapy, use of Dimension [place] TBIL is not recommended. Chloride [Moles/Vol] 110 mmol/L 98-107 [facility] Work Phone: Eosinophils/100 WBC (Bld) 6.2 % 0-5 [facility] Work Phone: Glucose [Mass/Vol] 111 mg/dL 74-106 [facility] Work Phone: [phone] Comment on above: Fasting Glucose resu lt from 100 to 125 mg/dL suggests IMPAIRED HOMEOSTASIS per A.D.A. criteria. Neutrophils (Bld) [#/Vol] 2.0 10*3/uL 2.0-7.7 [facility] Work Phone: Neutrophils/100 WBC (Bld) 62.9 % 47-70 [facility] Work Phone: [phone] Potassium [Moles/Vol] 3.4 mmol/L 3.5-5.1 [facility] Work Phone: [phone] Protein [Mass/Vol] 5.2 g/dL 6.4-8.2 [facility] Work Phone: Sodium [Moles/Vol] 143 mmol/L 136-145 [facility] Work Phone: WBC (Bld) [#/Vol] 3.2 10*3/uL 4.4-11.0 [facility] Work Phone: Blood erythrocytes count (nu mber/volume)on 08-04-2022 RBC (Bld) [#/Vol] 3.38 10*6/uL 4.2-5.4 [facility] Work Phone: Blood hemoglobin measurement (mass/volume)on 08-04-2022 Hemoglobin (Bld) [Mass/Vol] 10.4 g/dL 12.0-15.0 [facility] Work Phone: Blood lymphocytes/100 leukoc yteson 08-04-2022 Lymphocytes/100 WBC (Bld) 17.6 % 19-41 [facility] Work Phone: [phone] Blood monocytes/100 leukocyt eson 08-04-2022 Monocytes/100 WBC (Bld) 12.4 % 0-[address] [facility] Work Phone: Blood platelet adequacy dete ction by light microscopyon 08-04-2022 Platelets LM Ql (Bld) ADEQUATE ADEQ [facility] Work Phone: Blood platelet mean volumeon 08-04-2022 Platelet mean volume (Bld) [Entitic vol] 9.8 fL 6.2-12.0 [facility] Work Phone: Determination of erythrocyte mean corpuscular volume (MCV)on 08-04-2022 MCV (RBC) [Entitic vol] 95.6 fL 81-[address] [facility] Work Phone: Hematocrit Auto (Bld) [Volum e fraction]on 08-04-2022 Hematocrit (Bld) [Volume fraction] 32.3 % 37-47 [facility] Work Phone: Laboratory - Chemistry and C hemistry - challengeon 08-04-2022 ALP [Catalytic activity/Vol] 49 U/L 45-117 [facility] Work Phone: ALT [Catalytic activity/Vol] 10 U/L 13-56 [facility] Work Phone: CO2 [Moles/Vol] 26.0 mmol/L 21.0-32.0 [facility] Work Phone: Globulin (S) [Mass/Vol] 2.9 g/dL 2.2-4.[address] [facility] Work Phone: Urea nitrogen/Creatinine [Mass ratio] 25.9 mg/mg 10-20 [facility] Work Phone: Laboratory - Hematology and Cell countson 08-04-2022 Erythrocyte distribution width (RBC) [Entitic vol] 49.6 fL 35.1-43.9 [facility] Work Phone: Erythrocyte distribution width (RBC) [Ratio] 14.1 % 11.6-14.6 [facility] Work Phone: Immature granulocytes/100 WBC (Bld) 0.600 % 0.0-0.9 [facility] Work Phone: Comment on above: IG% - Immature Granu locytes (promyelocytes, myelocytes and metamyelocytes) > 1% indicates that a LEFT SHIFT is Present. MCH (RBC) [Entitic mass] 30.8 pg 27.0-32.0 [facility] Work Phone: Nucleated RBC/100 WBC (Bld) [Ratio] 0 % 0-5 [facility] Work Phone: MCHC Auto (RBC) [Mass/Vol]on 08-04-2022 MCHC (RBC) [Mass/Vol] 32.2 g/dL 32-36 [facility] Work Phone: No Panel Informationon 08-04 Estimated Creatinine Clearance Calc 36.67 ml/min [facility] Work Phone: Estimated GFR (MDRD) Amer 129 mL/min >60 [facility] Work Phone: Comment on above: GFR Calc Estimated GFR (MDRD) Non-Af Amer 107 mL/min >60 [facility] Work Phone: Comment on above: Non- GFR Calc Platelets bldon 08-04-2022 Platelets (Bld) [#/Vol] 130 10*3/uL 150-450 [facility] Work Phone: RBC morphologyon 08-04-2022 RBC morphology finding Nom (Bld) NORM C+C NORMAL NORM C&C [facility] Work Phone: Review by pathologiston 07-23 Pathologist review Sulaiman (Unsp spec) [Interp] May foll [facility] Work Phone: Serum or plasma albumin cirilo urement (mass/volume)on 08-04-2022 Albumin [Mass/Vol] 2.3 g/dL 3.2-5.0 [facility] Work Phone: Serum or plasma albumin/glob ulin mass ratioon 08-04-2022 Albumin/Globulin [Mass ratio] 0.8 {ratio} 0.9-2.4 [facility] Work Phone: Serum or plasma calcium cirilo urement (mass/volume)on 08-04-2022 Calcium [Mass/Vol] 8.6 mg/dL 8.5-10.1 [facility] Work Phone: Serum or plasma creatinine m easurement (mass/volume)on 08-04-2022 Creatinine [Mass/Vol] 0.58 mg/dL 0.55-1.02 [facility] Work Phone: Comment on above: The validity of the calculated GFR & GFRAA in patients over 70 years has not been determined. Clinical correlation is essential. Serum or plasma urea nitroge n measurement (mass/volume)on 08-04-2022 Urea nitrogen [Mass/Vol] 15 mg/dL 7-18 [facility] Work Phone: Thin prep Papanicolaou smear with manual screeningon 08-04-2022 Thin prep Papanicolaou smear with manual screening 17 U/L 15-37 [facility] Work Phone: Thin prep Papanicolaou smear with manual screening 7 5-15 [facility] Work Phone: Blood manual differential co mment interpretation (narrative result)on 08-03-2022 Manual differential comment Sulaiman (Bld) [Interp] SCANNED [facility] Work Phone: Comment on above: LYMPHOPENIA NOTED Sky 08-01-2022 CNPN Telephone (CHRCEU) LISA UP ([id number]) 1945 F Date Time Provider Department 08/01/22 CELESTE CLAUDIO During your visit today, we recorded the following information about you: Chinyere Shea RN 08/05/2022 2:10 PM Signed Call to patient, she is ok to travel to [place] or [facility] to get Twin. She is aware that someone else will be calling to set this up. Sravanthi Shea RN Allergies As of Date: 08/01/2022 Noted Allergy Reaction ADHESIVE 06/10/2022 2 - Rash Comments: Blisters and dermatitis from op site dressing and tape COVID-19 VACCINE, MRNA, [id number]*06/29/2021 10 - Anaphylaxis ERYTHROMYCIN 06/08/2013 2 - Rash 8 - GI Upset Comments: Urticarial rash, seen in [place] [facility] LATEX 02/13/2010 7 - Swelling LISINOPRIL [...] once daily. Meds Comments as of 05/28/2021: [facility] [id number] [place] [facility] Mail service [facility] 04/08/18 Patient stopped [...] [M54.6, G*12/28/2015 (more content not included)... Normal [facility] Laboratory - Chemistry and C hemistry - challengeon 07-30-2022 Lipase [Catalytic activity/Vol] 124 U/L 73-393 [facility] Work Phone: No Panel Informationon 07-30 Troponin I High Sensitivity 6 pg/mL 3.0-54.0 [facility] Work Phone: Comment on above: Please Note: New Sophie t Units and Gender Specific Reference Ranges. For more information see Policy Stat Procedure [place] High Sensitivity Troponin (TNIH) and attachments. CBC W Auto Differential pane l (Bld)on 07-23-2022 Basophils (Bld) [#/Vol] <0.11 k/uL [facility] Basophils/100 WBC (Bld) 0.6 % [facility] Differential cell count method Nom (Bld) Auto [facility] Eosinophils (Bld) [#/Vol] 0.30 10*3/uL <0.46 k/uL [facility] Eosinophils/100 WBC (Bld) 9.1 % [facility] Erythrocyte distribution width (RBC) [Ratio] 13.9 % 11.5 - 15.0 % [facility] Hematocrit (Bld) [Volume fraction] 38.3 % 36.0 - 46.0 % [facility] Hemoglobin (Bld) [Mass/Vol] 12.6 g/dL 11.5 - 15.5 g/dL [facility] Immature granulocytes (Bld) [#/Vol] <0.10 k/uL [facility] Immature granulocytes/100 WBC (Bld) 0.6 % [facility] Lymphocytes (Bld) [#/Vol] 0.37 10*3/uL Low 1.00 - 4.00 k/uL [facility] Lymphocytes/100 WBC (Bld) 11.2 % [facility] MCH (RBC) [Entitic mass] 30.7 pg 26.0 - 34.0 pg [facility] MCHC (RBC) [Mass/Vol] 32.9 g/dL 30.5 - 36.0 g/dL [facility] MCV (RBC) [Entitic vol] 93.4 fL 80.0 - 100.0 fL [facility] Monocytes (Bld) [#/Vol] 0.23 10*3/uL <0.87 k/uL [facility] Monocytes/100 WBC (Bld) 7.0 % [facility] Neutrophils (Bld) [#/Vol] 2.35 10*3/uL 1.45 - 7.50 k/uL [facility] Neutrophils/100 WBC (Bld) 71.5 % [facility] Nucleated RBC (Bld) [#/Vol] <0.01 k/uL [facility] Nucleated RBC/100 WBC (Bld) [Ratio] 0.0 /100 WBC [facility] Platelet mean volume (Bld) [Entitic vol] 9.5 fL 9.0 - 12.7 fL [facility] Platelets (Bld) [#/Vol] 94 10*3/uL Low 150 - 400 k/uL [facility] RBC (Bld) [#/Vol] 4.10 10*6/uL 3.90 - 5.2 0 m/uL [facility] WBC (Bld) [#/Vol] 3.29 10*3/uL Low 3.70 - 11.00 k/uL [facility] Comprehensive metabolic 2000 panelon 07-23-2022 Albumin [Mass/Vol] 3.8 g/dL Low 3.9 - 4.9 g/dL [facility] ALP [Catalytic activity/Vol] 73 U/L 34 - 123 U/L [facility] ALT [Catalytic activity/Vol] Low 7 - 38 U/L [facility] Anion gap [Moles/Vol] 10 mmol/L 9 - 18 mmol/L [facility] AST [Catalytic activity/Vol] 19 U/L 13 - 35 U/L [facility] Bilirubin [Mass/Vol] 0.4 mg/dL 0.2 - 1 .3 mg/dL [facility] Calcium [Mass/Vol] 9.3 mg/dL 8.5 - 10. 2 mg/dL [facility] Chloride [Moles/Vol] 104 mmol/L 97 - 10 5 mmol/L [facility] CO2 [Moles/Vol] 25 mmol/L 22 - 30 mmol/L [facility] Creatinine [Mass/Vol] 0.69 mg/dL 0.58 - 0.96 mg/dL [facility] Estimated Glomerular Filtration Rate 89 mL/min/1.73m >=60 mL/min/1.73 m [facility] Glucose [Mass/Vol] 121 mg/dL High 74 - 99 mg/dL [facility] Potassium [Moles/Vol] 3.9 mmol/L 3.7 - 5.1 mmol/L [facility] Protein [Mass/Vol] 6.1 g/dL Low 6.3 - 8.0 g/dL [facility] Sodium [Moles/Vol] 139 mmol/L 136 - 144 mmol/L [facility] Urea nitrogen [Mass/Vol] 11 mg/dL 7 - 21 mg/dL [facility] LD LACTATE DEHYDROon 022 LDH [Catalytic activity/Vol] 178 U/L 135 - 214 U/L [facility] URIC ACID BLOODon 07-23-2022 Urate [Mass/Vol] 4.1 mg/dL 2.5 - 6.6 mg/dL [facility] ALLIED HEALTHon 06-05-2022 ALLIED HEALTH HNO ID: [id number] Author: FAITH Helms Service: Radiology Author Type: [...] FAITH Helms June 05, 2022 2:15 PM [facility] ANES POSTPROC EVALon 022 ANES POSTPROC EVAL HNO ID: [id number] Author: Diony Lopez MD Service: ? Author Type: Anesthesiologist Type: Anesthesia Postprocedure Evaluation Filed: 06/05/2022 4:19 PM Note Text: POST ANESTHESIA EVALUATION NOTE : 1945 Procedure Summary Date: 06/05/22 Room / Location: SD OR / SD OR Anesthesia Start: 1242 Anesthesia Stop: 1345 [...] June 05, 2022 TIME: 4:18 PM CSN: [id number] [facility] ANES PRE-OPon 06-05-2022 ANES PRE-OP HNO ID: [id number] Author: Diony Lopez MD Service: ? Author Type: Anesthesiologist Type: Anesthesia Preprocedure Evaluation Filed: 06/05/2022 11:59 AM Note Text: ANESTHESIOLOGY DAY OF SURGERY NOTE : 1945 Procedure Information Date/Time: 06/05/22 1305 Procedure: INSERTION CATHETER PORT-A-CATH WITH C-ARM (Right) Location: SD OR04 / SD OR Surgeons: Zeny Crowder MD Estimated body [...] and consent discussed: yes. Patient / Responsible Democrat agrees to proceed: yes Patient / Surrogate [...] June 05, 2022 TIME: 11:58 AM CSN: [id number] [facility] HISTORY PHYSICALon HISTORY PHYSICAL HNO ID: [id number] Author: Zeny Crowder MD Service: General Surgery [...] for this visit. ALLERGIES: Covid-19 Vaccine, Mrna, [id number], Lnp-S (Moderna); Erythromycin; Latex; Lisinopril; Nafcillin; Norvasc [Amlodipine Besylate]; and Wasps PERSONAL HISTORY: SOCIAL HISTORY Social History Tobacco Use Smoking status: Never Smokeless tobacco: Never Vaping Use Vaping Use: Never used Substance Use Topics Alcohol use: No Drug use: No FAMILY HISTORY: FAMILY HISTORY FAMILY HISTORY Problem Relation Age of Onset Heart Mother Cancer Mother lung Heart Father other (Other) Father Heart Brother [place], aneurysm Migraines Daughter Macular Degen Maternal Aunt REVIEW OF SYMPTOMS: The review of systems data was entered by the nurse and reviewed by wa Nursing Notes: Viv Lo RN 05/28/2022 3:01 PM Signed REVIEW OF SYSTEMS: General: The patient NOTES fatigue, denies weight loss, denies weight gain, denies feeling hot, and denies feelings of co (more content not included)... Normal [facility] OPERATIVE NOon 09-14-2022 OPERATIVE NO HNO ID: [id number] Author: Zeny Crowder MD Service: General Surgery Author Type: Physician Type: Operative Report Filed: 06/05/2022 1:44 PM Note Text: OPERATIVE/PROCEDURE REPORT LOG ID: [id number] SURGERY/PROCEDURE DATE: 06/05/2022 INCISION/PROCEDURE START TIME: 1:02 PM INCISION CLOSE/PROCEDURE END TIME: 1:34 PM SURGEON(S)/PROCEDURALI ST(S) AND TIMBER BUYER(S): Surgeon(s) and Role: * Zeny Crowder MD - Primary Physician Virtualization Consultant: Kori Beyer PA-C SURGERY/PROCEDURE(S): Placement of a [...] was ordered. Kori Beyer PA-C was my medical assistant secretary. She assisted with retraction, visualization and performed [...] DATE: June 05, 2022 TIME: 1:40 PM [facility] XR CHEST 1V FRONTAL PORTon 0 [...] tip in the mid SVC. No pneumothorax. Oxyhydrogen Welder: PSCB Transcribe Date/Time: Jun 05 2022 2:38P Dictated by : EDWIN GAYTAN MD This examination was interpreted and the report reviewed and electronically signed by: EDWIN GAYTAN MD on Jun 05 2022 2:41PM EST [id number] [facility] SURGICAL PATHOLOGYon 05-15- 022 Case Report Surgical Pathology Report Case: [id number] Authorizing Provider: Zeny Crowder MD Collected: 05/10/2022 09:58 AM Ordering Location: General Surgery Received: 05/10/2022 04:21 PM Pathologist: Yady Chopra MD Specimen: LYMPH NODE BREAST, LEFT AXILLARY [facility] Clinical History abnormal CT scan [facility] Diagnosis Comment This is a 76-year-ol d [...] been determined by the performing laboratory within [facility] s [facility] [place] ([facility], [facility], [facility] or [facility]) in a manner consistent with CLIA requirements. One or more of these tests have not been cleared or approved by the FDA. [facility] is regulated under CLIA as qualified to perform high-complexity testing. These tests are used for clinical purposes. They should not be regarded as investigational or for research. Positive and negative controls stain appropriately. [facility] FINAL DIAGNOSIS A. 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 - See comment. ABO 05/15/2022 [facility] Gross Description A. LYMPH NODE BREAST Received [...] 2022 2:40 PM Gross examination performed at [facility], [address] [place] [address] [facility] Microscopic Description Sections demonst rate cores of [...] and BCL-6, and appropriately negative for BCL-2. [facility] Performing Lab Diagnostic interpretation performed at [facility], [address] [id number] Field Traffic Investigator: Umberto Dyer M.D. [facility] UA DIP, URINE (POC)on 2021 BILIRUBIN UA (POCT) Negative Negative [facility] CLARITY UA (POCT) Clear [facility] COLOR UA (POCT) Yellow [facility] GLUCOSE UA (POCT) Negative Negative mg/dL [facility] HEMOGLOBIN/BLOOD UA (POCT) Moderate Abnormal Negative [facility] KETONE UA (POCT) Negative Negative mg/dL [facility] LEUKOCYTES UA (POCT) Small [facility]normal [facility] NITRITE UA (POCT) Negative Negative [facility] PH UA (POCT) 7.0 4.5 - 8.0 [facility] Protein Ql (U) Trace Abnormal Negative mg/dL [facility] SPECIFIC GRAVITY UA (POCT) 1.010 1.005 - 1.030 [facility] UROBILINOGEN UA (POCT) 0.2 E.U./dL Ana l E.U./dL [facility] US LYMPH NODE BIOPSY AXILLA LEFT (POC) SURG USE ONLYon 05-10-2022 [facility] XR Chest PA and Lateralon IMPRESSION: No acute radiographic abnormality. Oxyhydrogen Welder: IVAN Transcribe Date/Time: Apr 23 2022 4:08P [...] [id number] E_DIVISION OF RADIOLOGY Provider, Keven dorsey [place] - 04/23/2022 * * *Final Report* * [...] changes. IMPRESSION IMPRESSION: No acute radiographic abnormality. Oxyhydrogen Welder: IVAN Transcribe Date/Time: Apr 23 2022 4:08P Dictated by : RICARDO HDEZ MD This examination was interpreted and the report reviewed and electronically signed by: RICARDO HDEZ MD on Apr 23 2022 4:12PM EST [facility] XR Chest PA and LateralOrder ed By: Cc Provider on 04-23-2022 [facility] XR Chest PA and Lateralon Radiology Study observation (narrative) Gavin [facility] Clinical Summary: [facility] 12-12-2021 [facility] OP Visit Invalid Interpretation Code [facility] Work Phone: Office Visit: Postop - subse quent visit, Rm: 2on 12-12-2021 NEGATED: Highlighted rowxray history of the lumbar spine on 10/03/2021 at [facility] Invalid Interpretation Code [facility] Work Phone: CBC AND DIFFERENTIALon 09-10 Basophils (Bld) [#/Vol] 0.00 10*3/uL Normal 0.00 - 0.1 0 [facility] Comment on above: Performed By: #### C BCDF #### [address] [address] Basophils/100 WBC (Bld) 0.4 % Normal 0.0 - 2.0 [facility] Comment on above: Performed By: #### C BCDF #### [address] [address] Eosinophils (Bld) [#/Vol] 0.40 10*3/uL Normal 0.00 - 0.40 [facility] Comment on above: Performed By: #### C BCDF #### [address] [address] Eosinophils/100 WBC (Bld) 8.1 % Normal 0.0 - 6.0 [facility] Comment on above: Performed By: #### C BCDF #### [address] [address] Erythrocyte distribution width (RBC) [Ratio] 14.4 % Normal 11.5 - 14.5 [facility] Comment on above: Performed By: #### C BCDF #### [address] [address] Hematocrit (Bld) [Volume fraction] 34.4 % Low 36.0 - 46.0 [facility] Comment on above: Performed By: #### C BCDF #### [address] [address] Hemoglobin (Bld) [Mass/Vol] 11.1 g/dL Low 12.0 - 16.0 [facility] Comment on above: Performed By: #### C BCDF #### [address] [address] Lymphocytes (Bld) [#/Vol] 1.50 10*3/uL Normal 0.80 - 3.00 [facility] Comment on above: Performed By: #### C BCDF #### [address] [address] Lymphocytes/100 WBC (Bld) 31.6 % Normal 13.0 - 44.0 [facility] Comment on above: Performed By: #### C BCDF #### [address] [address] MCHC (RBC) [Mass/Vol] 32.2 g/dL Normal 32.0 - 36.0 [facility] Comment on above: Performed By: #### C BCDF #### [address] [address] MCV (RBC) [Entitic vol] 92 fL Normal 80 - 100 [facility] Comment on above: Performed By: #### C BCDF #### [address] [address] Monocytes (Bld) [#/Vol] 0.50 10*3/uL Normal 0.05 - 0.8 0 [facility] Comment on above: Performed By: #### C BCDF #### [address] [address] Monocytes/100 WBC (Bld) 10.6 % Normal 2.0 - 10.0 [facility] Comment on above: Performed By: #### C BCDF #### [address] [address] Neutrophils (Bld) [#/Vol] 2.30 10*3/uL Normal 1.60 - 5.50 [facility] Comment on above: Result Comment: Perc ent differential counts (%) should be interpreted in the context of the absolute cell counts (cells/L). Performed By: #### C BCDF #### [address] [address] Neutrophils/100 WBC (Bld) 49.3 % Normal 40.0 - 80.0 [facility] Comment on above: Performed By: #### C BCDF #### [address] [address] Platelets (Bld) [#/Vol] 136 10*3/uL Low 150 - 450 [facility] Comment on above: Performed By: #### C BCDF #### [address] [address] RBC 3.74 x10E12/L Low 4.00 - 5.20 [facility] Comment on above: Performed By: #### C BCDF #### [address] [address] WBC (Bld) [#/Vol] 4.6 10*3/uL Normal 4.4 - 11.3 [facility] Comment on above: Performed By: #### C BCDF #### [address] [address] COMPREHENSIVE PANELon 09-10- 2020 Albumin [Mass/Vol] 3.2 g/dL Low 3.4 - 5.0 [facility] Comment on above: Performed By: #### C MP #### [address] [address] ALP [Catalytic activity/Vol] 53 U/L Normal 33 - 136 [facility] Comment on above: Performed By: #### C MP #### [address] [address] ALT [Catalytic activity/Vol] 4 U/L Low 7 - 45 [facility] Comment on above: Result Comment: Misty ents treated with Sulfasalazine may generate falsely decreased results for ALT. Performed By: #### C MP #### [address] [address] Anion gap [Moles/Vol] 9 mmol/L Low 10 - 20 [facility] Comment on above: Performed By: #### C MP #### [address] [address] AST [Catalytic activity/Vol] 17 U/L Normal 9 - 39 [facility] Comment on above: Performed By: #### C MP #### [address] [address] Bilirubin [Mass/Vol] 0.4 mg/dL Normal 0.0 - 1.2 [facility] Comment on above: Performed By: #### C MP #### [address] [address] Calcium [Mass/Vol] 8.9 mg/dL Normal 8.6 - 10.3 [facility] Comment on above: Performed By: #### C MP #### [address] [address] Chloride [Moles/Vol] 106 mmol/L Normal 98 - 107 [facility] Comment on above: Performed By: #### C MP #### [address] [address] Creatinine [Mass/Vol] 0.59 mg/dL Normal 0.50 - 1.05 [facility] Comment on above: Performed By: #### C MP #### [address] [address] GFR- AM. >60 Normal >60 [facility] Comment on above: Result Comment: CALC ULATIONS OF ESTIMATED GFR ARE PERFORMED USING THE MDRD STUDY EQUATION FOR THE IDMS-TRACEABLE CREATININE METHODS. CLIN CHEM 2007;53:766-72 Performed By: #### C MP #### [address] [address] GFR-NON AM. >60 Normal >60 [facility] Comment on above: Performed By: #### C MP #### [address] [address] Glucose [Mass/Vol] 93 mg/dL Normal 74 - 99 [facility] Comment on above: Performed By: #### C MP #### [address] [address] HCO3 (Bld) [Moles/Vol] 28 mmol/L Normal 21 - 32 [facility] Comment on above: Performed By: #### C MP #### [address] [address] Potassium [Moles/Vol] 3.4 mmol/L Low 3.5 - 5.3 [facility] Comment on above: Performed By: #### C MP #### [address] [address] Protein [Mass/Vol] 5.6 g/dL Low 6.4 - 8.2 [facility] Comment on above: Performed By: #### C MP #### [address] [address] Sodium [Moles/Vol] 140 mmol/L Normal 136 - 145 [facility] Comment on above: Performed By: #### C MP #### [address] [address] Urea nitrogen [Mass/Vol] 10 mg/dL Normal 6 - 23 [facility] Comment on above: Performed By: #### C MP #### [address] [address] SEDIMENTATION RATE, ERYTHROC YTEon 09-10-2021 SEDIMENTATION RATE, ERYTHROCYTE 17 mm/h Normal 0 - 30 [facility] Comment on above: Performed By: #### E SRWS #### [address] [address] CBC AND DIFFERENTIALon 09-03 Basophils (Bld) [#/Vol] 0.00 10*3/uL Normal 0.00 - 0.[address] [facility] Comment on above: Order Comment: [facility] Performed By: #### C BCDF #### [address] [address] Basophils/100 WBC (Bld) 0.4 % Normal 0.0 - 2.0 [facility] Comment on above: Order Comment: [facility] Performed By: #### C BCDF #### [address] [address] Eosinophils (Bld) [#/Vol] 0.40 10*3/uL Normal 0.00 - 0.[address] [facility] Comment on above: Order Comment: [facility] Performed By: #### C BCDF #### [address] [address] Eosinophils/100 WBC (Bld) 8.7 % Normal 0.0 - 6.[address] [facility] Comment on above: Order Comment: [facility] Performed By: #### C BCDF #### [address] [address] Erythrocyte distribution width (RBC) [Ratio] 14.0 % Normal 11.5 - 14.[address] [facility] Comment on above: Order Comment: [facility] Performed By: #### C BCDF #### [address] [address] Hematocrit (Bld) [Volume fraction] 33.2 % Low 36.0 - 46.[address] [facility] Comment on above: Order Comment: [facility] Performed By: #### C BCDF #### [address] [address] Hemoglobin (Bld) [Mass/Vol] 10.9 g/dL Low 12.0 - 16.[address] [facility] Comment on above: Order Comment: [facility] Performed By: #### C BCDF #### [address] [address] Lymphocytes (Bld) [#/Vol] 1.20 10*3/uL Normal 0.80 - 3.[address] [facility] Comment on above: Order Comment: [facility] Performed By: #### C BCDF #### [address] [address] Lymphocytes/100 WBC (Bld) 26.5 % Normal 13.0 - 44.[address] [facility] Comment on above: Order Comment: [facility] Performed By: #### C BCDF #### [address] [address] MCHC (RBC) [Mass/Vol] 32.7 g/dL Normal 32.0 - 36.0 [facility] Comment on above: Order Comment: [facility] Performed By: #### C BCDF #### [address] [address] MCV (RBC) [Entitic vol] 92 fL Normal 80 - 100 [facility] Comment on above: Order Comment: [facility] Performed By: #### C BCDF #### [address] [place] [address] Monocytes (Bld) [#/Vol] 0.50 10*3/uL Normal 0.05 - 0.[address] [facility] Comment on above: Order Comment: [facility] Performed By: #### C BCDF #### [address] [address] Monocytes/100 WBC (Bld) 11.0 % Normal 2.0 - 10.0 [facility] Comment on above: Order Comment: [facility] Performed By: #### C BCDF #### [address] [address] Neutrophils (Bld) [#/Vol] 2.40 10*3/uL Normal 1.60 - 5.[address] [facility] Comment on above: Order Comment: [facility] Result Comment: Perc ent differential counts (%) should be interpreted in the context of the absolute cell counts (cells/L). Performed By: #### C BCDF #### [address] [address] Neutrophils/100 WBC (Bld) 53.4 % Normal 40.0 - 80.[address] [facility] Comment on above: Order Comment: [facility] Performed By: #### C BCDF #### [address] [address] NUCLEATED RBC 0.1 /[address] [facility] Comment on above: Order Comment: [facility] Performed By: #### C BCDF #### [address] [address] Platelets (Bld) [#/Vol] 133 10*3/uL Low 150 - [address] [facility] Comment on above: Order Comment: [facility] Performed By: #### C BCDF #### [address] [address] RBC 3.62 x10E12/L Low 4.00 - 5.[address] [facility] Comment on above: Order Comment: [facility] Performed By: #### C BCDF #### [place] [id number] WBC (Bld) [#/Vol] 4.5 10*3/uL Normal 4.4 - 11.3 [facility] Comment on above: Order Comment: [facility] Performed By: #### C BCDF #### [place] [address] COMPREHENSIVE PANELon 2020 Albumin [Mass/Vol] 3.1 g/dL Low 3.4 - 5.0 [facility] Comment on above: Order Comment: [facility] Performed By: #### C MP #### [place] [id number] ALP [Catalytic activity/Vol] 57 U/L Normal 33 - [address] [facility] Comment on above: Order Comment: [facility] Performed By: #### C MP #### [place] [address] ALT [Catalytic activity/Vol] 4 U/L Low 7 - [address] [facility] Comment on above: Order Comment: [facility] Result Comment: Misty ents treated with Sulfasalazine may generate falsely decreased results for ALT. Performed By: #### C MP #### [place] [address] Anion gap [Moles/Vol] 9 mmol/L Low 10 - 20 [facility] Comment on above: Order Comment: [facility] Performed By: #### C MP #### [place] [address] AST [Catalytic activity/Vol] 15 U/L Normal 9 - [address] [facility] Comment on above: Order Comment: [facility] Performed By: #### C MP #### [place] [id number] Bilirubin [Mass/Vol] 0.4 mg/dL Normal 0.0 - 1.2 [facility] Comment on above: Order Comment: [facility] Performed By: #### C MP #### [place] [id number] Calcium [Mass/Vol] 8.9 mg/dL Normal 8.6 - 10.3 [facility] Comment on above: Order Comment: [facility] Performed By: #### C MP #### [address] [address] Chloride [Moles/Vol] 107 mmol/L Normal 98 - 107 [facility] Comment on above: Order Comment: [facility] Performed By: #### C MP #### [address] [address] Creatinine [Mass/Vol] 0.57 mg/dL Normal 0.50 - 1.05 [facility] Comment on above: Order Comment: [facility] Performed By: #### C MP #### [place] [id number] GFR- AM. >60 Normal >[address] [facility] Comment on above: Order Comment: [facility] Result Comment: CALC ULATIONS OF ESTIMATED GFR ARE PERFORMED USING THE MDRD STUDY EQUATION FOR THE IDMS-TRACEABLE CREATININE METHODS. CLIN CHEM 2007;53:766-72 Performed By: #### C MP #### [place] [id number] GFR-NON AM. >60 Normal >60 [facility] Comment on above: Order Comment: [facility] Performed By: #### C MP #### [address] [address] Glucose [Mass/Vol] 121 mg/dL High 74 - 99 [facility] Comment on above: Order Comment: [facility] Performed By: #### C MP #### [address] [address] HCO3 (Bld) [Moles/Vol] 26 mmol/L Normal 21 - 32 [facility] Comment on above: Order Comment: [facility] Performed By: #### C MP #### [address] [address] Potassium [Moles/Vol] 3.4 mmol/L Low 3.5 - 5.3 [facility] Comment on above: Order Comment: [facility] Performed By: #### C MP #### [address] [address] Protein [Mass/Vol] 5.5 g/dL Low 6.4 - 8.2 [facility] Comment on above: Order Comment: [facility] Performed By: #### C MP #### [address] [address] Sodium [Moles/Vol] 139 mmol/L Normal 136 - 145 [facility] Comment on above: Order Comment: [facility] Performed By: #### C MP #### [address] [address] Urea nitrogen [Mass/Vol] 12 mg/dL Normal 6 - [address] [facility] Comment on above: Order Comment: [facility] Performed By: #### C MP #### [address] [address] SEDIMENTATION RATE, ERYTHROC YTEon 09-03-2021 SEDIMENTATION RATE, ERYTHROCYTE 23 mm/h Normal 0 - [address] [facility] Comment on above: Order Comment: [facility] Performed By: #### E SRWS #### [address] [address] CBC AND DIFFERENTIALon 08-27 Basophils (Bld) [#/Vol] 0.00 10*3/uL Normal 0.00 - 0.1 0 [facility] Comment on above: Performed By: #### C BCDF #### [address] [address] Basophils/100 WBC (Bld) 0.6 % Normal 0.0 - 2.0 [facility] Comment on above: Performed By: #### C BCDF #### [address] [address] Eosinophils (Bld) [#/Vol] 0.20 10*3/uL Normal 0.00 - 0.40 [facility] Comment on above: Performed By: #### C BCDF #### [address] [address] Eosinophils/100 WBC (Bld) 3.5 % Normal 0.0 - 6.0 [facility] Comment on above: Performed By: #### C BCDF #### [address] [address] Erythrocyte distribution width (RBC) [Ratio] 14.4 % Normal 11.5 - 14.5 [facility] Comment on above: Performed By: #### C BCDF #### [address] [address] Hematocrit (Bld) [Volume fraction] 33.2 % Low 36.0 - 46.0 [facility] Comment on above: Performed By: #### C BCDF #### [address] [address] Hemoglobin (Bld) [Mass/Vol] 10.8 g/dL Low 12.0 - 16.0 [facility] Comment on above: Performed By: #### C BCDF #### [address] [address] Lymphocytes (Bld) [#/Vol] 1.40 10*3/uL Normal 0.80 - 3.00 [facility] Comment on above: Performed By: #### C BCDF #### [address] [address] Lymphocytes/100 WBC (Bld) 28.3 % Normal 13.0 - 44.0 [facility] Comment on above: Performed By: #### C BCDF #### [address] [address] MCHC (RBC) [Mass/Vol] 32.4 g/dL Normal 32.0 - 36.0 [facility] Comment on above: Performed By: #### C BCDF #### [address] [address] MCV (RBC) [Entitic vol] 92 fL Normal 80 - 100 [facility] Comment on above: Performed By: #### C BCDF #### [address] [address] Monocytes (Bld) [#/Vol] 0.40 10*3/uL Normal 0.05 - 0.8 0 [facility] Comment on above: Performed By: #### C BCDF #### [address] [address] Monocytes/100 WBC (Bld) 7.3 % Normal 2.0 - 10.0 [facility] Comment on above: Performed By: #### C BCDF #### [address] [address] Neutrophils (Bld) [#/Vol] 3.10 10*3/uL Normal 1.60 - 5.50 [facility] Comment on above: Result Comment: Perc ent differential counts (%) should be interpreted in the context of the absolute cell counts (cells/L). Performed By: #### C BCDF #### [address] [address] Neutrophils/100 WBC (Bld) 60.3 % Normal 40.0 - 80.0 [facility] Comment on above: Performed By: #### C BCDF #### [address] [address] NUCLEATED RBC 0.1 /100 WBC Normal [facility] Comment on above: Performed By: #### C BCDF #### [address] [address] Platelets (Bld) [#/Vol] 113 10*3/uL Low 150 - 450 [facility] Comment on above: Performed By: #### C BCDF #### [address] [address] RBC 3.62 x10E12/L Low 4.00 - 5.20 [facility] Comment on above: Performed By: #### C BCDF #### [address] [address] WBC (Bld) [#/Vol] 5.1 10*3/uL Normal 4.4 - 11.3 [facility] Comment on above: Performed By: #### C BCDF #### [address] [address] COMPREHENSIVE PANELon 2020 Albumin [Mass/Vol] 3.0 g/dL Low 3.4 - 5.0 [facility] Comment on above: Performed By: #### C MP #### [address] [address] ALP [Catalytic activity/Vol] 54 U/L Normal 33 - 136 [facility] Comment on above: Performed By: #### C MP #### [address] [address] ALT [Catalytic activity/Vol] 5 U/L Low 7 - 45 [facility] Comment on above: Result Comment: Misty ents treated with Sulfasalazine may generate falsely decreased results for ALT. Performed By: #### C MP #### [address] [address] Anion gap [Moles/Vol] 9 mmol/L Low 10 - 20 [facility] Comment on above: Performed By: #### C MP #### [address] [address] AST [Catalytic activity/Vol] 16 U/L Normal 9 - 39 [facility] Comment on above: Performed By: #### C MP #### [address] [address] Bilirubin [Mass/Vol] 0.4 mg/dL Normal 0.0 - 1.2 [facility] Comment on above: Performed By: #### C MP #### [address] [address] Calcium [Mass/Vol] 8.9 mg/dL Normal 8.6 - 10.3 [facility] Comment on above: Performed By: #### C MP #### [address] [address] Chloride [Moles/Vol] 107 mmol/L Normal 98 - 107 [facility] Comment on above: Performed By: #### C MP #### [address] [address] Creatinine [Mass/Vol] 0.62 mg/dL Normal 0.50 - 1.05 [facility] Comment on above: Performed By: #### C MP #### [address] [address] GFR- AM. >60 Normal >60 [facility] Comment on above: Result Comment: CALC ULATIONS OF ESTIMATED GFR ARE PERFORMED USING THE MDRD STUDY EQUATION FOR THE IDMS-TRACEABLE CREATININE METHODS. CLIN CHEM 2007;53:766-72 Performed By: #### C MP #### [address] [address] GFR-NON AM. >60 Normal >60 [facility] Comment on above: Performed By: #### C MP #### [address] [address] Glucose [Mass/Vol] 89 mg/dL Normal 74 - 99 [facility] Comment on above: Performed By: #### C MP #### [address] [address] HCO3 (Bld) [Moles/Vol] 28 mmol/L Normal 21 - 32 [facility] Comment on above: Performed By: #### C MP #### [address] [address] Potassium [Moles/Vol] 3.7 mmol/L Normal 3.5 - 5.3 [facility] Comment on above: Performed By: #### C MP #### [address] [address] Protein [Mass/Vol] 5.5 g/dL Low 6.4 - 8.2 [facility] Comment on above: Performed By: #### C MP #### [address] [address] Sodium [Moles/Vol] 140 mmol/L Normal 136 - 145 [facility] Comment on above: Performed By: #### C MP #### [address] [address] Urea nitrogen [Mass/Vol] 9 mg/dL Normal 6 - 23 [facility] Comment on above: Performed By: #### C MP #### [address] [address] SEDIMENTATION RATE, ERYTHROC YTEon 08-27-2021 SEDIMENTATION RATE, ERYTHROCYTE 21 mm/h Normal 0 - 30 [facility] Comment on above: Performed By: #### E SRWS #### [address] [address] CBC W Auto Differential pane l (Bld)on 07-11-2021 Basophils (Bld) [#/Vol] 10*3/uL Normal <0.11 [facility] Comment on above: Order Comment: Speci men Type: BLOOD SPECIMEN Performed By: #### 5 7021-8 #### [facility] CLIA [id number] [address] [place] [address] [place] Basophils/100 WBC (Bld) 0.2 % Normal [facility] Comment on above: Order Comment: Speci men Type: BLOOD SPECIMEN Performed By: #### 5 7021-8 #### [facility] CLIA [id number] [address] [place] [address] [place] Differential cell count method Nom (Bld) Auto Normal [facility] Comment on above: Order Comment: Speci men Type: BLOOD SPECIMEN Performed By: #### 5 7021-8 #### [facility] CLIA [id number] [address] [place] [address] [place] Eosinophils (Bld) [#/Vol] 0.19 10*3/uL Normal <0.46 [facility] Comment on above: Order Comment: Speci men Type: BLOOD SPECIMEN Performed By: #### 5 7021-8 #### [facility] CLIA [id number] [address] [facility] [place] [address] [place] Eosinophils/100 WBC (Bld) 3.4 % Normal [facility] Comment on above: Order Comment: Speci men Type: BLOOD SPECIMEN Performed By: #### 5 7021-8 #### [facility] CLIA [id number] [address] [facility] [place] [address] [place] Erythrocyte distribution width (RBC) [Ratio] 14.0 % Normal 11.5-15.0 [facility] Comment on above: Order Comment: Speci men Type: BLOOD SPECIMEN Performed By: #### 5 7021-8 #### [facility] CLIA [id number] [address] [place] [address] [facility] Hematocrit (Bld) [Volume fraction] 38.6 % Normal 36.0-46.0 [facility] Comment on above: Order Comment: Speci men Type: BLOOD SPECIMEN Performed By: #### 5 7021-8 #### [facility] CLIA [id number] [address] [place] [address] [place] [facility] Hemoglobin (Bld) [Mass/Vol] 12.0 g/dL Normal 11.5-15.5 [facility] Comment on above: Order Comment: Speci men Type: BLOOD SPECIMEN Performed By: #### 5 7021-8 #### [facility] CLIA [id number] [address] [place] [address] [place] Lymphocytes (Bld) [#/Vol] 2.57 10*3/uL Normal 1.00-4.00 [facility] Comment on above: Order Comment: Speci men Type: BLOOD SPECIMEN Performed By: #### 5 7021-8 #### [facility] CLIA [id number] [address] [place] [address] [facility] Lymphocytes/100 WBC (Bld) 46.6 % Normal [facility] Comment on above: Order Comment: Speci men Type: BLOOD SPECIMEN Performed By: #### 5 7021-8 #### [facility] CLIA [id number] [address] [place] [address] [facility] [place] MCH (RBC) [Entitic mass] 30.6 pg Normal 26.0-34.0 [facility] Comment on above: Order Comment: Speci men Type: BLOOD SPECIMEN Performed By: #### 5 7021-8 #### [facility] CLIA [id number] [address] [place] [address] [place] MCHC (RBC) [Mass/Vol] 31.1 g/dL Normal 30.5-36.0 [facility] Comment on above: Order Comment: Speci men Type: BLOOD SPECIMEN Performed By: #### 5 7021-8 #### [facility] CLIA [id number] [address] [place] [address] [facility] [place] MCV (RBC) [Entitic vol] 98.5 fL Normal 80.0-100.0 [facility] Comment on above: Order Comment: Speci men Type: BLOOD SPECIMEN Performed By: #### 5 7021-8 #### [facility] CLIA [id number] [address] [place] [address] [facility] [place] Monocytes (Bld) [#/Vol] 0.52 10*3/uL Normal <0.87 [facility] Comment on above: Order Comment: Speci men Type: BLOOD SPECIMEN Performed By: #### 5 7021-8 #### [facility] CLIA [id number] [address] [place] [address] [place] Monocytes/100 WBC (Bld) 9.4 % Normal [facility] Comment on above: Order Comment: Speci men Type: BLOOD SPECIMEN Performed By: #### 5 7021-8 #### [facility] CLIA [id number] [address] [place] [address] [place] Neutrophils (Bld) [#/Vol] 2.23 10*3/uL Normal 1.45-7.50 [facility] Comment on above: Order Comment: Speci men Type: BLOOD SPECIMEN Performed By: #### 5 7021-8 #### [facility] CLIA [id number] [address] [place] [address] [facility] [place] Neutrophils/100 WBC (Bld) 40.4 % Normal [facility] Comment on above: Order Comment: Speci men Type: BLOOD SPECIMEN Performed By: #### 5 7021-8 #### [facility] CLIA [id number] [address] [place] [address] [facility] [place] Platelet mean volume (Bld) [Entitic vol] 11.0 fL Normal 9.0-12.7 [facility] Comment on above: Order Comment: Speci men Type: BLOOD SPECIMEN Performed By: #### 5 7021-8 #### [facility] CLIA [id number] [address] [place] [address] [place] Platelets (Bld) [#/Vol] 138 10*3/uL Low 150-400 [facility] Comment on above: Order Comment: Speci men Type: BLOOD SPECIMEN Performed By: #### 5 7021-8 #### [facility] CLIA [id number] [address] [place] [address] [place] RBC (Bld) [#/Vol] 3.92 10*6/uL Normal 3.90-5.20 [facility] Comment on above: Order Comment: Speci men Type: BLOOD SPECIMEN Performed By: #### 5 7021-8 #### [facility] CLIA [id number] [address] [place], [place] [address] [place] [address] [place] WBC (Bld) [#/Vol] 5.52 10*3/uL Normal 3.70-11.00 [facility] Comment on above: Order Comment: Speci men Type: BLOOD SPECIMEN Performed By: #### 5 7021-8 #### [facility] CLIA [id number] [address] [place] [address] [facility] [place] CRP SerPl-mCncon 07-11-2021 CRP [Mass/Vol] 0.3 mg/dL Normal <0.9 [facility] Comment on above: Order Comment: Speci men Type: BLOOD SPECIMEN Performed By: #### 1 988-5 #### [facility] CLIA [id number] [address] [place] ESR Westergren method (Bld) [Velocity]on 07-11-2021 ESR (Bld) [Velocity] 23 mm/h High 0-20 [facility] Comment on above: Order Comment: Speci men Type: BLOOD SPECIMEN Performed By: #### 4 537-7 #### [facility] [place] [id number] [address] [place] [address] [address] [facility] CBC AND DIFFERENTIALon 06-21 Basophils (Bld) [#/Vol] 0.00 10*3/uL Normal 0.00 - 0.[address] [facility] Comment on above: Performed By: #### C BCDF #### [address] [address] Basophils/100 WBC (Bld) 0.4 % Normal 0.0 - 2.0 [facility] Comment on above: Performed By: #### C BCDF #### [address] [address] Eosinophils (Bld) [#/Vol] 0.10 10*3/uL Normal 0.00 - 0.[address] [facility] Comment on above: Performed By: #### C BCDF #### [address] [address] Eosinophils/100 WBC (Bld) 1.6 % Normal 0.0 - 6.[address] [facility] Comment on above: Performed By: #### C BCDF #### [address] [address] Erythrocyte distribution width (RBC) [Ratio] 15.0 % High 11.5 - 14.[address] [facility] Comment on above: Performed By: #### C BCDF #### [address] [address] Hematocrit (Bld) [Volume fraction] 36.4 % Normal 36.0 - 46.[address] [facility] Comment on above: Performed By: #### C BCDF #### [address] [address] Hemoglobin (Bld) [Mass/Vol] 11.8 g/dL Low 12.0 - 16.[address] [facility] Comment on above: Performed By: #### C BCDF #### [address] [address] Lymphocytes (Bld) [#/Vol] 2.00 10*3/uL Normal 0.80 - 3.[address] [facility] Comment on above: Performed By: #### C BCDF #### [address] [address] Lymphocytes/100 WBC (Bld) 35.7 % Normal 13.0 - 44.[address] [facility] Comment on above: Performed By: #### C BCDF #### [address] [address] MCHC (RBC) [Mass/Vol] 32.3 g/dL Normal 32.0 - 36.0 [facility] Comment on above: Performed By: #### C BCDF #### [address] [address] MCV (RBC) [Entitic vol] 95 fL Normal 80 - 100 [facility] Comment on above: Performed By: #### C BCDF #### [address] [address] Monocytes (Bld) [#/Vol] 0.50 10*3/uL Normal 0.05 - 0.[address] [facility] Comment on above: Performed By: #### C BCDF #### [address] [address] Monocytes/100 WBC (Bld) 8.4 % Normal 2.0 - 10.0 [facility] Comment on above: Performed By: #### C BCDF #### [address] [address] Neutrophils (Bld) [#/Vol] 3.10 10*3/uL Normal 1.60 - 5.[address] [facility] Comment on above: Result Comment: Perc ent differential counts (%) should be interpreted in the context of the absolute cell counts (cells/L). Performed By: #### C BCDF #### [address] [address] Neutrophils/100 WBC (Bld) 53.9 % Normal 40.0 - 80.[address] [facility] Comment on above: Performed By: #### C BCDF #### [place] [id number] NUCLEATED RBC 0.2 /[address] [facility] Comment on above: Performed By: #### C BCDF #### [place] [id number] Platelets (Bld) [#/Vol] 201 10*3/uL Normal 150 - [address] [facility] Comment on above: Performed By: #### C BCDF #### [place] [id number] RBC 3.85 x10E12/L Low 4.00 - 5.[address] [facility] Comment on above: Performed By: #### C BCDF #### [place] [id number] WBC (Bld) [#/Vol] 5.7 10*3/uL Normal 4.4 - 11.3 [facility] Comment on above: Performed By: #### C BCDF #### [place] [address] COMPREHENSIVE PANELon 2020 Albumin [Mass/Vol] 3.3 g/dL Low 3.4 - 5.0 [facility] Comment on above: Order Comment: [facility] AT HOME Performed By: #### C MP #### [place] [id number] ALP [Catalytic activity/Vol] 78 U/L Normal 33 - [address] [facility] Comment on above: Order Comment: [facility] AT HOME Performed By: #### C MP #### [place] [id number] ALT [Catalytic activity/Vol] 6 U/L Low 7 - [address] [facility] Comment on above: Order Comment: [facility] AT HOME Result Comment: Misty ents treated with Sulfasalazine may generate falsely decreased results for ALT. Performed By: #### C MP #### [place] [id number] Anion gap [Moles/Vol] 12 mmol/L Normal 10 - 20 [facility] Comment on above: Order Comment: [facility]INDR ED AT HOME Performed By: #### C MP #### [address] [address] AST [Catalytic activity/Vol] 19 U/L Normal 9 - [address] [facility] Comment on above: Order Comment: KINDR ED AT HOME Performed By: #### C MP #### [address] [address] Bilirubin [Mass/Vol] 0.3 mg/dL Normal 0.0 - 1.2 [facility] Comment on above: Order Comment: KINDR ED AT HOME Performed By: #### C MP #### [address] [address] Calcium [Mass/Vol] 9.3 mg/dL Normal 8.6 - 10.3 [facility] Comment on above: Order Comment: KINDR ED AT HOME Performed By: #### C MP #### [address] [address] Chloride [Moles/Vol] 103 mmol/L Normal 98 - 107 [facility] Comment on above: Order Comment: KINDR ED AT HOME Performed By: #### C MP #### [address] [address] Creatinine [Mass/Vol] 0.70 mg/dL Normal 0.50 - 1.05 [facility] Comment on above: Order Comment: KINDR ED AT HOME Performed By: #### C MP #### [address] [address] GFR- AM. >60 Normal >[address] [facility] Comment on above: Order Comment: KINDR ED AT HOME Result Comment: CALC ULATIONS OF ESTIMATED GFR ARE PERFORMED USING THE MDRD STUDY EQUATION FOR THE IDMS-TRACEABLE CREATININE METHODS. CLIN CHEM 2007;53:766-72 Performed By: #### C MP #### [address] [address] GFR-NON AM. >60 Normal >60 [facility] Comment on above: Order Comment: KINDR ED AT HOME Performed By: #### C MP #### [address] [address] Glucose [Mass/Vol] 103 mg/dL High 74 - 99 [facility] Comment on above: Order Comment: KINDR ED AT HOME Performed By: #### C MP #### [address] [address] HCO3 (Bld) [Moles/Vol] 28 mmol/L Normal 21 - 32 [facility] Comment on above: Order Comment: [facility]DR ED AT HOME Performed By: #### C MP #### [address] [address] Potassium [Moles/Vol] 3.8 mmol/L Normal 3.5 - 5.3 [facility] Comment on above: Order Comment: [facility]DR ED AT HOME Performed By: #### C MP #### [address] [address] Protein [Mass/Vol] 6.3 g/dL Low 6.4 - 8.2 [facility] Comment on above: Order Comment: [facility]DR ED AT HOME Performed By: #### C MP #### [address] [address] Sodium [Moles/Vol] 139 mmol/L Normal 136 - 145 [facility] Comment on above: Order Comment: [facility]DR ED AT HOME Performed By: #### C MP #### [address] [address] Urea nitrogen [Mass/Vol] 13 mg/dL Normal 6 - [address] [facility] Comment on above: Order Comment: [facility] ED AT HOME Performed By: #### C MP #### [address] [address] TSHon 06-21-2021 TSH Qn 4.73 m[IU]/L High 0.44 - 3.[address] [facility] Comment on above: Order Comment: KINDR ED AT HOME Result Comment: TSH testing is performed using different testing methodology at [facility] than at other [facility]. Direct result comparisons should only be made within the same method. Performed By: #### T SH2 #### [address] [address] Bacteria Bld Culton 05-18-20 21 Bacteria identified Cx Nom (Bld) CULTURE, BLOOD: No growth 5 days Normal [facility] Comment on above: Performed By: #### 6 00-7 #### [facility] CLIA [id number] [address] Bacteria identified Cx Nom (Bld) CULTURE, BLOOD: No growth 5 days Normal [facility] Comment on above: Performed By: #### 6 00-7 #### [facility] CLIA [id number] [address] CBC W Auto Differential pane l (Bld)on 05-18-2021 Basophils (Bld) [#/Vol] 10*3/uL Normal <0.11 [facility] Comment on above: Order Comment: Speci men Type: BLOOD SPECIMEN Performed By: #### 5 7021-8 #### [facility] [place] [facility] CLIA [id number] [address] [place], [place] [address] [place] [address] Basophils/100 WBC (Bld) 0.2 % Normal [facility] Comment on above: Order Comment: Speci men Type: BLOOD SPECIMEN Performed By: #### 5 7021-8 #### [facility] [place] [facility] CLIA [id number] [address] [place] [address] [facility] Differential cell count method Nom (Bld) Auto Normal [facility] Comment on above: Order Comment: Speci men Type: BLOOD SPECIMEN Performed By: #### 5 7021-8 #### [facility] [place] [facility] CLIA [id number] [address] [place] [address] [place] Eosinophils (Bld) [#/Vol] 0.13 10*3/uL Normal <0.46 [facility] Comment on above: Order Comment: Speci men Type: BLOOD SPECIMEN Performed By: #### 5 7021-8 #### [facility] [place] [facility] CLIA [id number] [address] [place] [address] [place] Eosinophils/100 WBC (Bld) 2.8 % Normal [facility] Comment on above: Order Comment: Speci men Type: BLOOD SPECIMEN Performed By: #### 5 7021-8 #### [facility] [place] [facility] CLIA [id number] [address] [place] [address] [place] Erythrocyte distribution width (RBC) [Ratio] 13.4 % Normal 11.5-15.0 [facility] Comment on above: Order Comment: Speci men Type: BLOOD SPECIMEN Performed By: #### 5 7021-8 #### [facility] [place] [facility] CLIA [id number] [address] [place] [address] [facility] Hematocrit (Bld) [Volume fraction] 42.1 % Normal 36.0-46.0 [facility] Comment on above: Order Comment: Speci men Type: BLOOD SPECIMEN Performed By: #### 5 7021-8 #### [facility] [place] [facility] CLIA [id number] [address] [place] [address] [place] Hemoglobin (Bld) [Mass/Vol] 13.6 g/dL Normal 11.5-15.5 [facility] Comment on above: Order Comment: Speci men Type: BLOOD SPECIMEN Performed By: #### 5 7021-8 #### [facility] [place] [facility] CLIA [id number] [address] [place] [address] [place] Lymphocytes (Bld) [#/Vol] 1.58 10*3/uL Normal 1.00-4.00 [facility] Comment on above: Order Comment: Speci men Type: BLOOD SPECIMEN Performed By: #### 5 7021-8 #### [facility] [place] [facility] CLIA [id number] [address] [place] [address] [place] Lymphocytes/100 WBC (Bld) 33.5 % Normal [facility] Comment on above: Order Comment: Speci men Type: BLOOD SPECIMEN Performed By: #### 5 7021-8 #### [facility] [place] [facility] CLIA [id number] [address] [place] [address] [place] MCH (RBC) [Entitic mass] 30.4 pg Normal 26.0-34.0 [facility] Comment on above: Order Comment: Speci men Type: BLOOD SPECIMEN Performed By: #### 5 7021-8 #### [facility] [place] [facility] CLIA [id number] [address] [place] [address] [place] MCHC (RBC) [Mass/Vol] 32.3 g/dL Normal 30.5-36.0 [facility] Comment on above: Order Comment: Speci men Type: BLOOD SPECIMEN Performed By: #### 5 7021-8 #### [facility] [place] [facility] CLIA [id number] [address] [place] [address] [place] MCV (RBC) [Entitic vol] 94.0 fL Normal 80.0-100.0 [facility] Comment on above: Order Comment: Speci men Type: BLOOD SPECIMEN Performed By: #### 5 7021-8 #### [facility] [place] [facility] CLIA [id number] [address] [place] [address] [place] Monocytes (Bld) [#/Vol] 0.39 10*3/uL Normal <0.87 [facility] Comment on above: Order Comment: Speci men Type: BLOOD SPECIMEN Performed By: #### 5 7021-8 #### [facility] [place] [facility] CLIA [id number] [address] [place] [address] [place] Monocytes/100 WBC (Bld) 8.3 % Normal [facility] Comment on above: Order Comment: Speci men Type: BLOOD SPECIMEN Performed By: #### 5 7021-8 #### [facility] [place] [facility] CLIA [id number] [address] [place] [address] [place] Neutrophils (Bld) [#/Vol] 2.61 10*3/uL Normal 1.45-7.50 [facility] Comment on above: Order Comment: Speci men Type: BLOOD SPECIMEN Performed By: #### 5 7021-8 #### [facility] [place] [facility] CLIA [id number] [address] [place] [address] [place] Neutrophils/100 WBC (Bld) 55.2 % Normal [facility] Comment on above: Order Comment: Speci men Type: BLOOD SPECIMEN Performed By: #### 5 7021-8 #### [facility] [place] [facility] CLIA [id number] [address] [place] [address] [facility] Platelet mean volume (Bld) [Entitic vol] 10.4 fL Normal 9.0-12.7 [facility] Comment on above: Order Comment: Speci men Type: BLOOD SPECIMEN Performed By: #### 5 7021-8 #### [facility] [place] [facility] CLIA [id number] [address] [place] [address] [place] Platelets (Bld) [#/Vol] 144 10*3/uL Low 150-400 [facility] Comment on above: Order Comment: Speci men Type: BLOOD SPECIMEN Performed By: #### 5 7021-8 #### [facility] [place] [facility] CLIA [id number] [address] [place] [address] [place] RBC (Bld) [#/Vol] 4.48 10*6/uL Normal 3.90-5.20 [facility] Comment on above: Order Comment: Speci men Type: BLOOD SPECIMEN Performed By: #### 5 7021-8 #### [facility] [place] [facility] CLIA [id number] [address] [place] [address] [place] WBC (Bld) [#/Vol] 4.72 10*3/uL Normal 3.70-11.00 [facility] Comment on above: Order Comment: Speci men Type: BLOOD SPECIMEN Performed By: #### 5 7021-8 #### [facility] [place] [facility] CLIA [id number] [address] [place] [address] [facility] [place] CT NECK SOFT TISSUE W IVCONo n 05-18-2021 CT NECK SOFT TISSUE W IVCON * * *Final Report* * * DATE OF EXAM: May 18 2021 12:21AM [facility] 0013 - CT NECK SOFT TISSUE W [...] Additional findings later relayed to Dr. Levine. Oxyhydrogen Welder: IVAN Transcribe Date/Time: May 18 2021 12:56A Dictated by : LAURIE CHERRY MD This examination was interpreted and the report reviewed and electronically signed by: LAURIE CHERRY MD on May 18 2021 1:40AM EST [id number] Normal [facility] Comprehensive metabolic 2000 panelon 05-18-2021 Albumin [Mass/Vol] 3.8 g/dL Low 3.9-4.9 [facility] Comment on above: Order Comment: Speci men Type: BLOOD SPECIMEN Performed By: #### 2 4323-8 #### [facility] [place] [facility] CLIA [id number] [address] [place] [address] [place] ALP [Catalytic activity/Vol] 67 U/L Normal 34-123 [facility] Comment on above: Order Comment: Speci men Type: BLOOD SPECIMEN Performed By: #### 2 4323-8 #### [facility] [place] [facility] CLIA [id number] [address] [facility] [place] [address] [place] ALT With P-5'-P [Catalytic activity/Vol] 7 U/L Normal 7-38 [facility] Comment on above: Order Comment: Speci men Type: BLOOD SPECIMEN Performed By: #### 2 4323-8 #### [facility] [place] [facility] CLIA [id number] [address] [facility] [place] [address] [place] Anion gap [Moles/Vol] 12 mmol/L Normal 9-18 [facility] Comment on above: Order Comment: Speci men Type: BLOOD SPECIMEN Performed By: #### 2 4323-8 #### [facility] [place] [facility] CLIA [id number] [address] [place] [address] [place] AST With P-5'-P [Catalytic activity/Vol] 26 U/L Normal 13-35 [facility] Comment on above: Order Comment: Speci men Type: BLOOD SPECIMEN Performed By: #### 2 4323-8 #### [facility] [place] [facility] CLIA [id number] [address] [place] [address] [place] Bilirubin [Mass/Vol] 0.3 mg/dL Normal 0.2-1.3 [facility] Comment on above: Order Comment: Speci men Type: BLOOD SPECIMEN Performed By: #### 2 4323-8 #### [facility] [place] [facility] CLIA [id number] [address] [facility] [place] [address] [place] Calcium [Mass/Vol] 9.6 mg/dL Normal 8.5-10.2 [facility] Comment on above: Order Comment: Speci men Type: BLOOD SPECIMEN Performed By: #### 2 4323-8 #### [facility] [place] [facility] CLIA [id number] [address] [facility] [place] [address] [place] Chloride [Moles/Vol] 99 mmol/L Normal 97-105 [facility] Comment on above: Order Comment: Speci men Type: BLOOD SPECIMEN Performed By: #### 2 4323-8 #### [facility] [place] [facility] CLIA [id number] [address] [facility] [place] [address] [place] CO2 [Moles/Vol] 25 mmol/L Normal 22-30 [facility] Comment on above: Order Comment: Speci men Type: BLOOD SPECIMEN Performed By: #### 2 4323-8 #### [facility] [place] [facility] CLIA [id number] [address] [facility] [place] [address] [place] Creatinine [Mass/Vol] 0.77 mg/dL Normal 0.58-0.96 [facility] Comment on above: Order Comment: Speci men Type: BLOOD SPECIMEN Performed By: #### 2 4323-8 #### [facility] [place] [facility] CLIA [id number] [address] [facility] [place] [address] [place] GFR/1.73 sq M.predicted among blacks MDRD (S/P/Bld) [Vol rate/Area] mL/min/{1.73_m2} Normal [facility] Comment on above: Order Comment: Speci men Type: BLOOD SPECIMEN Performed By: #### 2 4323-8 #### [facility] [place] [facility] CLIA [id number] [address] [facility] [place] [address] [place] GFR/1.73 sq M.predicted among non-blacks MDRD (S/P/Bld) [Vol rate/Area] mL/min/{1.73_m2} Normal [facility] Comment on above: Order Comment: Ludin morales [...] GFR. Performed By: #### 2 4323-8 #### [facility] CLIA [id number] [address] [place] [address] [place] Glucose [Mass/Vol] 121 mg/dL High 74-99 [facility] Comment on above: Order Comment: Ludin morales Type: BLOOD SPECIMEN Result Comment: The [place] [employer] (ADA) provides guidance for cutoff [...] Standards of Medical Care in Diabetes 2016, [place] [employer]. Diabetes Care. 2016.39(Suppl 1). Performed By: #### 2 4323-8 #### [facility] CLIA [id number] [address] [place] [address] [place] Potassium [Moles/Vol] 4.1 mmol/L Normal 3.7-5.1 [facility] Comment on above: Order Comment: Ludin men Type: BLOOD SPECIMEN Performed By: #### 2 4323-8 #### [facility] [place] [facility] CLIA [id number] [address] [place] [address] [place] Protein [Mass/Vol] 6.9 g/dL Normal 6.3-8.0 [facility] Comment on above: Order Comment: Speci men Type: BLOOD SPECIMEN Performed By: #### 2 4323-8 #### [facility] [place] [facility] CLIA [id number] [address] [place] [address] [place] Sodium [Moles/Vol] 136 mmol/L Normal 136-144 [facility] Comment on above: Order Comment: Speci men Type: BLOOD SPECIMEN Performed By: #### 2 4323-8 #### [facility] [place] [facility] CLIA [id number] [address] [place] [address] [place] Urea nitrogen [Mass/Vol] 18 mg/dL Normal 7-21 [facility] Comment on above: Order Comment: Speci men Type: BLOOD SPECIMEN Performed By: #### 2 4323-8 #### [facility] [place] [facility] CLIA [id number] [address] [place] [address] [place] Lactate (Bld) [Moles/Vol]on 05-18-2021 Lactate [Moles/Vol] 1.0 mmol/L Normal 0.5-2.2 [facility] Comment on above: Order Comment: Speci men Type: BLOOD SPECIMEN Performed By: #### 3 2693-4 #### [facility] [place] [facility] CLIA [id number] [address] [place] [address] [place] SARS-CoV-2 RNA Resp Ql ANALI+p robeon 05-18-2021 SARS-CoV-2 (COVID-19) RNA ANALI+probe Ql (Resp) COVID 19 RESULT: SARS-CoV-2 (Agent of COVID-19) Not Detected by PCR. This test has been authorized by FDA under an Emergency Use Authorization (EUA) Normal [facility] Comment on above: Performed By: #### 3 2693-4 #### [facility] [place] [facility] CLIA [id number] [address] [place], [place] [id number] [place] XR CHEST 1V [...] emergency room on 05/18/2021 at 1:30 AM. Oxyhydrogen Welder[facility] Transcribe Date/Time: May 18 2021 1:23A Dictated by : EDY IVERSON MD This examination was interpreted and the report reviewed and electronically signed by: EDY IVERSON MD on May 18 2021 1:32AM EST [id number] Normal [facility] MRI Spine Lumbar w/ + w/o Co ntraston 04-30-2021 MRI Spine Lumbar w/ + w/o Contrast Patient Name: LISA UP [facility] ACCESSION EXAM DATE/TIME PROCEDURE ORDERING PROVIDER [id number] 04/30/2021 15:15 EDT MRI Spine Lumbar w/ + w/ TALIWAL, MU V o Contrast CPT code 87635 Reason For Exam (MRI Spine Lumbar w/ [...] central/right paracentral disc herniation is present with wmzg-zm-tjkctihh narrowing of the central canal. The foramina are patent. At the L1/L2 level, circumferential disc bulging with small osteophytes are present, more pronounced in the right paracentral region. There is narrowing of the right lateral recess. Degenerative facet changes are present. Magr-ci-puonlesi narrowing of the central canal is noted. Dzlp-ne-dypwofot bilateral foraminal narrowing is greater on the right. At the L2/L3 level, minimal retrolisthesis is noted. There is circumferential disc bulging is slightly more focal in the right Magnetic Resonance Imaging Report paracentral/foraminal region. Moderate to severe right and bqdk-cd-eegyzyrv left-sided foraminal narrowing is noted. Laminectomy is [...] spinal fixation. The central canal is patent. Petk-ct-ickprsbg bilateral foraminal stenosis is present. Impression: Small [...] Transcribed Date and Time: 05/01/2021 11:05 Normal [facility] XR Chest PA and Lateralon IMPRESSION: No acute radiographic abnormality. Oxyhydrogen Welder: IVAN Transcribe Date/Time: Mar 21 2021 1:02P Dictated by : PERFECTO LAMB MD This examination was interpreted and the report reviewed and electronically signed by: PERFECTO LAMB MD on Mar 21 2021 1:03PM [facility] DIVISION OF RADIOLOGY * * *Final Report* [...] Unremarkable. DIVISION OF RADIOLOGY Provider, Keven Frausto [facility] - 03/21/2021 * * *Final Report* * [...] Unremarkable. IMPRESSION IMPRESSION: No acute radiographic abnormality. Oxyhydrogen Welder: PSCB Transcribe Date/Time: Mar 21 2021 1:02P Dictated by : PERFECTO LAMB MD This examination was interpreted and the report reviewed and electronically signed by: PERFECTO LAMB MD on Mar 21 2021 1:03PM EST [facility] Radiology Study observation (narrative) [place] [facility] XR Chest PA and LateralOrder ed By: [facility] Provider on 03-21-2021 [facility] PREALBUMINon 03-10-2021 Prealbumin [Mass/Vol] 11.8 mg/dL Low 18.0 - 40.0 [facility] Comment on above: Performed By: #### P REAL #### [facility] [address] [place] [address] CBC AND DIFFERENTIALon 03-09 Basophils (Bld) [#/Vol] 0.00 10*3/uL Normal 0.00 - 0.[address] [facility] Comment on above: Performed By: #### C BCDF #### [address] [address] Basophils/100 WBC (Bld) 0.3 % Normal 0.0 - 2.0 [facility] Comment on above: Performed By: #### C BCDF #### [address] [address] Eosinophils (Bld) [#/Vol] 0.20 10*3/uL Normal 0.00 - 0.[address] [facility] Comment on above: Performed By: #### C BCDF #### [address] [address] Eosinophils/100 WBC (Bld) 4.0 % Normal 0.0 - 6.[address] [facility] Comment on above: Performed By: #### C BCDF #### [address] [address] Erythrocyte distribution width (RBC) [Ratio] 14.3 % Normal 11.5 - 14.[address] [facility] Comment on above: Performed By: #### C BCDF #### [address] [address] Hematocrit (Bld) [Volume fraction] 36.9 % Normal 36.0 - 46.[address] [facility] Comment on above: Performed By: #### C BCDF #### [address] [address] Hemoglobin (Bld) [Mass/Vol] 12.2 g/dL Normal 12.0 - 16.[address] [facility] Comment on above: Performed By: #### C BCDF #### [address] [address] Lymphocytes (Bld) [#/Vol] 1.10 10*3/uL Normal 0.80 - 3.[address] [facility] Comment on above: Performed By: #### C BCDF #### [address] [address] Lymphocytes/100 WBC (Bld) 27.2 % Normal 13.0 - 44.[address] [facility] Comment on above: Performed By: #### C BCDF #### [address] [address] MCHC (RBC) [Mass/Vol] 32.9 g/dL Normal 32.0 - 36.0 [facility] Comment on above: Performed By: #### C BCDF #### [address] [address] MCV (RBC) [Entitic vol] 93 fL Normal 80 - 100 [facility] Comment on above: Performed By: #### C BCDF #### [address] [address] Monocytes (Bld) [#/Vol] 0.30 10*3/uL Normal 0.05 - 0.[address] [facility] Comment on above: Performed By: #### C BCDF #### [address] [address] Monocytes/100 WBC (Bld) 7.6 % Normal 2.0 - 10.0 [facility] Comment on above: Performed By: #### C BCDF #### [address] [address] Neutrophils (Bld) [#/Vol] 2.50 10*3/uL Normal 1.60 - 5.[address] [facility] Comment on above: Result Comment: Perc ent differential counts (%) should be interpreted in the context of the absolute cell counts (cells/L). Performed By: #### C BCDF #### [address] [address] Neutrophils/100 WBC (Bld) 60.9 % Normal 40.0 - 80.[address] [facility] Comment on above: Performed By: #### C BCDF #### [address] [address] NUCLEATED RBC 0.1 /[address] [facility] Comment on above: Performed By: #### C BCDF #### [address] [address] Platelets (Bld) [#/Vol] 144 10*3/uL Low 150 - [address] [facility] Comment on above: Performed By: #### C BCDF #### [address] [place] [address] RBC 3.96 x10E12/L Low 4.00 - 5.[address] [facility] Comment on above: Performed By: #### C BCDF #### [address] [address] WBC (Bld) [#/Vol] 4.1 10*3/uL Low 4.4 - 11.3 [facility] Comment on above: Performed By: #### C BCDF #### [address] [address] XR Chest PA and Lateralon IMPRESSION: No acute radiographic abnormality. Oxyhydrogen Welder: PSCB Transcribe Date/Time: Jan 12 2021 3:02P Dictated by : ANEL REICH MD This examination was interpreted and the report reviewed and electronically signed by: ANEL REICH MD on Jan 12 2021 3:04PM [facility] DIVISION OF RADIOLOGY * * *Final Report* [...] the thoracic spine. DIVISION OF RADIOLOGY Provider, [facility] - 01/12/2021 * * *Final Report* * [...] spine. IMPRESSION IMPRESSION: No acute radiographic abnormality. Oxyhydrogen Welder: [facility] Transcribe Date/Time: Jan 12 2021 3:02P Dictated by : ANEL REICH MD This examination was interpreted and the report reviewed and electronically signed by: ANEL REICH MD on Jan 12 2021 3:04PM EST [facility] Radiology Study observation (narrative) [facility] XR Chest PA and LateralOrder ed By: Ccf Provider on 01-12-2021 [facility] No Panel Informationon 12-06 Radiology [facility]narrative[facility] XR Lumbar spine AP and Later diony 12-06-2020 IMPRESSION: Lumbar postsurgical and degenerative findings with mild curvature. L4-5 spondylolisthesis. Gallstones Oxyhydrogen Welder: [facility] Transcribe Date/Time: Dec 06 2020 3:05P Dictated by : WILNER HINOJOSA MD This examination was interpreted and the report reviewed and electronically signed by: WILNER HINOJOSA MD on Dec 06 2020 3:08PM [facility] DIVISION OF RADIOLOGY * * *Final Report* [...] None. DIVISION OF RADIOLOGY Provider, Mady Lisbet [facility] - 12/06/2020 * * *Final Report* * [...] findings with mild curvature. L4-5 spondylolisthesis. Gallstones [facility] Transcribe Date/Time: Dec 06 2020 3:05P Dictated by : WILNER HINOJOSA MD This examination was interpreted and the report reviewed and electronically signed by: WILNER HINOJOSA MD on Dec 06 2020 3:08PM [facility] XR Thoracic spine AP and Lat [...] is only partially imaged. Further evaluation needed. Oxyhydrogen Welder: [facility] Transcribe Date/Time: Dec 06 2020 3:05P Dictated by : BORA ELIAS MD This examination was interpreted and the report reviewed and electronically signed by: BORA ELIAS MD on Dec 06 2020 3:07PM [facility] DIVISION OF RADIOLOGY * * *Final Report* [...] is only partially imaged. Further evaluation needed. Oxyhydrogen Welder: [facility] Transcribe Date/Time: Dec 06 2020 3:05P Dictated by : BORA ELIAS MD This examination was interpreted and the report reviewed and electronically signed by: BORA ELIAS MD on Dec 06 2020 3:07PM EST [facility] XR Thoracic spine AP and Lat eralOrdered By: Ccf Provider on 12-06-2020 [facility] CULTURE URINEon 09-15-2020 CULTURE URINE 1 Organism Pseudomon as aeruginosa 10,000-50,000 CFU/ml 1 Organism Antibiotic Result Intrp Cefepime(VESTA) 2 S Pip/Tazobactam(VESTA) 8 S Meropenem(VESTA) <= 0.25 S Ciprofloxacin(VESTA) <= 0.25 S Gentamicin(VESTA) <= 1 S Amikacin(VESTA) <= 2 S Normal [facility] Comment on above: Performed By: #### C /UR #### [address], [place] [address] [address] [place] Basic Metabolic Panelon 12-2 Calcium [Mass/Vol] 9.2 mg/dL Normal 8.4-10.4 [facility] Comment on above: Performed By: #### B NP3, TROPN, LACT3, BMP3 #### [address], [place] Glucose [Mass/Vol] 113 mg/dL High 70-100 [facility] Comment on above: Performed By: #### B NP3, TROPN, LACT3, BMP3 #### [address], [place] Anion Gap 6 Normal [facility] Comment on above: Performed By: #### B NP3, TROPN, LACT3, BMP3 #### [address], [place] CO2 [Moles/Vol] 29 mmol/L Normal 22-30 [facility] Comment on above: Performed By: #### B NP3, TROPN, LACT3, BMP3 #### [address], [place] Creatinine [Mass/Vol] 0.77 mg/dL Normal 0.52-1.25 [facility] Comment on above: Performed By: #### B NP3, TROPN, LACT3, BMP3 #### [address], [place] GFR/1.73 sq M.predicted among blacks MDRD (S/P/Bld) [Vol rate/Area] 86.4 mL/min/{1.73_m2} Normal >60 [facility] Comment on above: Performed By: #### B NP3, TROPN, LACT3, BMP3 #### [address] [address] GFR/1.73 sq M.predicted among non-blacks MDRD (S/P/Bld) [Vol rate/Area] 74.6 mL/min/{1.73_m2} Normal >60 [facility] Comment on above: Result Comment: KDIG [...] #### B NP3, TROPN, LACT3, BMP3 #### [address] [address] [place], [place] Urea nitrogen [Mass/Vol] 15 mg/dL Normal 7-20 [facility] Comment on above: Performed By: #### B NP3, TROPN, LACT3, BMP3 #### [address] [place], [place] Chloride [Moles/Vol] 102 mmol/L Normal 98-107 [facility] Comment on above: Performed By: #### B NP3, TROPN, LACT3, BMP3 #### [address] Potassium [Moles/Vol] 4.5 mmol/L Normal 3.5-5.1 [facility] Comment on above: Performed By: #### B NP3, TROPN, LACT3, BMP3 #### [address] [address] Sodium [Moles/Vol] 138 mmol/L Normal 135-145 [facility] Comment on above: Performed By: #### B NP3, TROPN, LACT3, BMP3 #### [facility] [address] [place] [address] Anion gap [Moles/Vol] 6 mmol/L [place], [place] Calcium [Mass/Vol] 9.2 mg/dL 8.4 - 10. 4 mg/dL [place], [place] Chloride [Moles/Vol] 102 mmol/L 98 - 10 7 mmol/L [place] CO2 [Moles/Vol] 29 mmol/L 22 - 30 mmol/L [place] Creatinine [Mass/Vol] 0.77 mg/dL 0.52 - 1.25 mg/dL [place] EGFR IF NonAfrican [place] 74.6 mL/min >60 [place] Comment on above: KDIGO guidelines pro [...] MDRD (S/P/Bld) [Vol rate/Area] 86.4 mL/min/{1.73_m2} >60 [place], [place] Glucose [Mass/Vol] 113 mg/dL High 70 - 100 mg/dL [place] Interpretation and review of laboratory results Abnormal [place] Potassium [Moles/Vol] 4.5 mmol/L 3.5 - 5.1 mmol/L [place] Sodium [Moles/Vol] 138 mmol/L 135 - 145 mmol/L [place] Urea nitrogen [Mass/Vol] 15 mg/dL 7 - 20 mg/dL [place] Test Performed by [facility], [address] [place] [address] [place], [place] Brain Natriuretic Peptideon 09-13-2020 Interpretation and review of laboratory results Abnormal [place] Natriuretic peptide B (Bld) [Mass/Vol] 1195 pg/mL High 0 - 450 pg/mL [place] COVID and Resp PCR Panelon 1 11-14-2019 SARS-CoV-2 (COVID-19) RNA ANALI+probe Ql (Unsp spec) COVID and Resp PCR Panel --> Status: F NEGATIVE: No targets were detected by the [employer] Upper Respiratory Pathogens PCR Panel. _ Expected Result: Not Detected The [employer] Upper Respiratory Pathogens PCR Panel can detect [...] management decisions. This assay was developed by [employer] and distributed under an Emergency Use Authorization (EUA) granted by the FDA for the qualitative detection of SARS-CoV-2 nucleic acid. Provider and patient fact sheets can be found at https://www.fda.gov/me nancy/991694/download and https://www.fda.gov/wa nancy/537152/download. Respiratory Pathogens PCR Panel. _ Expected Result: Not Detected The [employer] Upper Respiratory Pathogens PCR Panel can detect [...] management decisions. This assay was developed by [employer] and distributed under an Emergency Use Authorization (EUA) granted by the FDA for the qualitative detection of SARS-CoV-2 nucleic acid. Provider and patient fact sheets can be found at https://www.[facility].gov/wa nancy/327450/download and https://www.[facility].gov/wa nancy/556458/download. Normal [facility] Comment on above: Performed By: #### H [facility] #### [address] [address] CR Chest Portableon 09-13-20 20 CR Chest Portable Patient Name: LISA UP Diagnostic Radiology ACCESSION EXAM DATE/TIME PROCEDURE ORDERING PROVIDER [id number] 09/13/2020 14:02 EST CR Chest Portable MD KIERSTEN, WILNER Parks CPT code 83470 Reason For Exam (CR Chest Portable) cough [...] Transcribed Date and Time: 09/13/2020 1:28 Normal [facility] Complete Urinalysison 2019 Appearance (U) Clear Normal Clear [facility] Comment on above: Result Comment: . Performed By: #### C UA2 #### [facility] [address], [place] Bilirubin,Urine Negative Normal Negative [facility] Comment on above: Result Comment: . Performed By: #### C UA2 #### [facility] [address], [place] Color (U) Yellow Normal Lt. Yellow [facility] Comment on above: Result Comment: . Performed By: #### C UA2 #### [facility] [address], [place] Glucose Ql (U) Normal Normal Normal (<70) [facility] Comment on above: Result Comment: . Performed By: #### C UA2 #### [facility] [address], [place] Ketone,Urine Negative Normal Negative [facility] Comment on above: Result Comment: . Performed By: #### C UA2 #### [facility] [address], [place] Leukocytes,Urine Negative Normal Negative [facility] Comment on above: Result Comment: . Performed By: #### C UA2 #### [facility] [address], [place] Nitrites,Urine Negative Normal Negative [facility] Comment on above: Result Comment: . Performed By: #### C UA2 #### [facility] [address], [place] Occult Blood,Urine Negative Normal Negative [facility] Comment on above: Result Comment: . Performed By: #### C UA2 #### [facility] [address], [place] pH,Urine 7.5 Normal 5.0-8.0 [facility] Comment on above: Result Comment: . Performed By: #### C UA2 #### [facility] [address], [place] Specific [place],Urine 1.014 Normal 1.005 - 1.030 [facility] Comment on above: Result Comment: . Performed By: #### C UA2 #### [facility] [address], [place] Total Protein,Urine Negative Normal Negative [facility] Comment on above: Result Comment: . Performed By: #### C UA2 #### [facility] [address], [place] Urobilinogen,Urine Normal Normal Normal (0-1) [facility] Comment on above: Result Comment: . Performed By: #### C UA2 #### [facility] [address], [place] ED Provider Noteon 0 ED Provider Note Emergency Department Encounter [facility] EMERGENCY DEPT Patient: Lisa Up : 1945 Date of Evaluation: 09/13/2020 ED Provider: WILNER FERRER MD As the [id number], I performed a medical screening history and [...] [employer] Wilner Ferrer MD 09/13/20 1156 [facility] ED Provider Note [facility] EMERGENCY DEPT EMERGENCY DEPARTMENT ENCOUNTER Pt Name: [...] Smokeless t (more content not included)... Normal [facility] Hemogram (CBC) w/Auto Diffon 09-13-2020 Absolute Baso # 0.0 10*3/uL 0 - 0.2 10*3/uL [place] Absolute Neut # 3.6 10*3/uL 1.8 - 7 10*3/uL [place] Basophils/100 WBC (Bld) 0.7 % 0 - 2 % [place] Eosinophils (Bld) [#/Vol] 0.3 10*3/uL 0 - 0.5 10*3/uL [place] Eosinophils/100 WBC (Bld) 5.3 % 1 - 6 % [place] Erythrocyte distribution width (RBC) [Ratio] 13.7 % 11.5 - 14.5 % [place] Granulocytes/100 WBC (Bld) 65.5 % 40 - 80 % [place] Hematocrit (Bld) [Volume fraction] 37.4 % 35 - 47 % [place] Hemoglobin (Bld) [Mass/Vol] 12.2 g/dL 11.7 - 16 g/dL [place] Lymphocytes (Bld) [#/Vol] 1.2 10*3/uL 1 - 4.3 10*3/uL [place] Lymphocytes/100 WBC (Bld) 22.4 % 20 - 40 % [place] MCH (RBC) [Entitic mass] 30.3 pg 26 - 34 pg [place] MCHC (RBC) [Mass/Vol] 32.6 % 32 - 36 % [place] MCV (RBC) [Entitic vol] 92.8 fL 79 - 98 fL [place] Monocytes (Bld) [#/Vol] 0.3 10*3/uL 0 - 0.8 10*3/uL [place] Monocytes/100 WBC (Bld) 6.1 % 2 - 10 % [place] Platelet mean volume (Bld) [Entitic vol] 7.7 fL 7.4 - 10.4 fL [place] Platelets (Bld) [#/Vol] 186 10*3/uL 140 - 440 10*3/uL [place] RBC (Bld) [#/Vol] 4.03 10*6/uL 3.8 - 5.2 10*6/uL [place] WBC (Bld) [#/Vol] 5.4 10*3/uL 3.6 - 10.7 10*3/uL [place] Test Performed by [id number] [place] [address] Hemogram w/ Autodiffon 09-13 Abs Baso Cnt 0.0 10*3/uL Normal 0.0-0.2 [facility] Comment on above: Performed By: #### H EMDF #### [address] Abs Neutrophile Cnt 3.6 10*3/uL Normal 1.8-7.0 [facility] Comment on above: Performed By: #### H EMDF #### [address] Basophils/100 WBC (Bld) 0.7 % Normal 0.0-2.0 [facility] Comment on above: Performed By: #### H EMDF #### [address] Eosinophils (Bld) [#/Vol] 0.3 10*3/uL Normal 0.0-0.5 [facility] Comment on above: Performed By: #### H EMDF #### [address] Eosinophils/100 WBC (Bld) 5.3 % Normal 1.0-6.0 [facility] Comment on above: Performed By: #### H EMDF #### [address] Erythrocyte distribution width (RBC) [Ratio] 13.7 % Normal 11.5-14.5 [facility] Comment on above: Performed By: #### H EMDF #### [address], [place] Granulocytes/100 WBC (Bld) 65.5 % Normal 40.0-80.0 [facility] Comment on above: Performed By: #### H EMDF #### [address] [place], [place] Hematocrit (Bld) [Volume fraction] 37.4 % Normal 35.0-47.0 [facility] Comment on above: Performed By: #### H EMDF #### [address], [place] Hemoglobin (Bld) [Mass/Vol] 12.2 g/dL Normal 11.7-16.0 [facility] Comment on above: Performed By: #### H EMDF #### [address] [place], [place] Lymphocytes (Bld) [#/Vol] 1.2 10*3/uL Normal 1.0-4.3 [facility] Comment on above: Performed By: #### H EMDF #### [address] [place], [place] Lymphocytes/100 WBC (Bld) 22.4 % Normal 20.0-40.0 [facility] Comment on above: Performed By: #### H EMDF #### [address] [place] MCH (RBC) [Entitic mass] 30.3 pg Normal 26.0-34.0 [facility] Comment on above: Performed By: #### H EMDF #### [address] MCHC 32.6 % Normal 32.0-36.0 [facility] Comment on above: Performed By: #### H EMDF #### [address] [place] MCV (RBC) [Entitic vol] 92.8 fL Normal 79.0-98.0 [facility] Comment on above: Performed By: #### H EMDF #### [address] Monocytes (Bld) [#/Vol] 0.3 10*3/uL Normal 0.0-0.8 [facility] Comment on above: Performed By: #### H EMDF #### [address] [address] [place] Monocytes/100 WBC (Bld) 6.1 % Normal 2.0-10.0 [facility] Comment on above: Performed By: #### H EMDF #### [address] Platelet mean volume (Bld) [Entitic vol] 7.7 fL Normal 7.4-10.4 [facility] Comment on above: Performed By: #### H EMDF #### [address] Platelets (Bld) [#/Vol] 186 10*3/uL Normal 140-440 [facility] Comment on above: Performed By: #### H EMDF #### [address] RBC (Bld) [#/Vol] 4.03 10*6/uL Normal 3.80-5.20 [facility] Comment on above: Performed By: #### H EMDF #### [address] [address] [place] WBC (Bld) [#/Vol] 5.4 10*3/uL Normal 3.6-10.7 [facility] Comment on above: Performed By: #### H EMDF #### [address] Lactic Acidon 09-13-2020 Lactate [Moles/Vol] 1.6 mmol/L Normal 0.7-2.0 [facility] Comment on above: Performed By: #### B NP3, TROPN, LACT3, BMP3 #### [address] [address] Lactic Acid, Plasmaon 2019 Lactate [Moles/Vol] 1.6 mmol/L 0.7 - 2 mmol/L [place] Test Performed by [address] [address] [place], [place] NT pro BNPon 09-13-2020 Natriuretic peptide B (Bld) [Mass/Vol] 1195 pg/mL High 0-450 [facility] Comment on above: Performed By: #### B NP3, TROPN, LACT3, BMP3 #### [address] [address] Otheron 09-13-2020 Test Performed by [id number] [place] [address] Respiratory Panel, Molecular , with COVID-19 (Restricted: peds pts or suitable admitted adults)on 09-13-2020 Respiratory Panel Molecular, with COVID NEGATIVE: No targets were detected by the [employer] Upper Respiratory Pathogens PCR Panel. _ Expected Result: Not Detected The [employer] Upper Respiratory Pathogens PCR Panel can detect [...] management decisions. This assay was developed by [employer] and distributed under an Emergency Use Authorization (EUA) granted by the FDA for the qualitative detection of SARS-CoV-2 nucleic acid. Provider and patient fact sheets can be found at https://www.fda.gov/me nancy/399992/download and https://www.fda.gov/me nancy/344838/download. [place], [place] Test Performed by [facility], [address] [place] [address] [place] Troponinon 09-13-2020 Troponin I.cardiac [Mass/Vol] ng/mL 0 - 0.034 ng/mL [place] Comment on above: . Troponin Ion 09-13-2020 Troponin I.cardiac [Mass/Vol] ng/mL Normal 0.000-0.034 [facility] Comment on above: Result Comment: . Performed By: #### B NP3, TROPN, LACT3, BMP3 #### [address] [address] Urinalysison 09-13-2020 Appearance (U) Clear Clear NA [place] Comment on above: . Bilirubin Urine Negative Negative mg/dL [place] Comment on above: . Color (U) Yellow Lt. Yellow [place], [place] Comment on above: . Glucose, Ur Normal Normal (<70) mg/dL [place] Comment on above: . Ketones Ql (U) Negative Negative mg/dL [place] Comment on above: . LEUKOCYTES, UA Negative Negative Nolvia/uL [place] Comment on above: . Nitrite, Urine Negative Negative NA [place], [place] Comment on above: . Occult Blood,Urine Negative Negative mg/dL [place] Comment on above: . pH (U) 7.5 [pH] [place] Comment on above: . Protein (U) [Mass/Vol] Negative Negat hawa mg/dL [place] Comment on above: . Specific [place], Urine 1.014 [place], [place] Comment on above: . Urobilinogen, Urine Normal Normal (0-1) mg/dL [place] Comment on above: . Test Performed by [facility], [address] [place] [id number] [place] [address] XR CHEST PORTABLEon 09-13-20 20 Patient Name: LISA UP Diagnostic Radiology ACCESSION EXAM DATE/TIME PROCEDURE ORDERING PROVIDER [id number] 09/13/2020 14:02 EST CR Chest Portable MD FERRER MARK D CPT code 70542 Reason For Exam (CR Chest Portable) cough [...] Dictated: 09/13/2020 1:28 pm Dictating Physician: MD LEIAS JONATHAN R Signed Date and Time: 09/13/2020 1:28 pm Signed by: MD ELIAS JONATHAN R Transcribed Date and Time: 09/13/2020 1:28 [facility] Incoming Radiology Results From [facility] - 09/13/2020 2:02 PM EST [facility]: [id number] Radiology ACCESSION EXAM DATE/TIME PROCEDURE ORDERING PROVIDER [id number] 09/13/2020 14:02 EST CR Chest Portable MD FERRER MARK D CPT code 90645 Reason For Exam (CR Chest Portable) cough [...] R Transcribed Date and Time: 09/13/2020 1:28 [facility] [place] [place] CULTURE URINEon 09-08-2020 CULTURE URINE 1 Organism [...] 1 S Amikacin(VESTA) <= 2 S Normal [facility] Comment on above: Performed By: #### H [facility] #### [address] [address] CR Chest Portableon 09-06-20 20 CR Chest Portable Patient Name: LISA UP Diagnostic Radiology ACCESSION EXAM DATE/TIME PROCEDURE ORDERING PROVIDER [id number] 09/06/2020 17:28 EST CR Chest Portable MD CASTORENA JESSE CPT code 97440 Reason For Exam (CR Chest Portable) Fever [...] Transcribed Date and Time: 09/06/2020 5:19 Normal [facility] Comp Metabolic Panelon 09-06 ALT [Catalytic activity/Vol] 10 U/L Normal 0-34 [facility] Comment on above: Result Comment: The ALT test is performed by an updated assay method. Please note that the reference intervals have been changed and are now sex specific. Performed By: #### H GILDA LAM3 #### [facility] [address], [place] Calcium [Mass/Vol] 8.9 mg/dL Normal 8.4-10.4 [facility] Comment on above: Performed By: #### H GILDA LAM3 #### [facility] [address], [place] Glucose [Mass/Vol] 120 mg/dL High 70-100 [facility] Comment on above: Performed By: #### H GENARO CMP3 #### [facility] [address], [place] ALP [Catalytic activity/Vol] 64 U/L Normal 38-126 [facility] Comment on above: Performed By: #### H GILDA LAM3 #### [facility] [address], [place] Anion Gap 8 Normal [facility] Comment on above: Performed By: #### H GILDA LAM3 #### [facility] [address] AST [Catalytic activity/Vol] 32 U/L Normal 15-46 [facility] Comment on above: Performed By: #### H GENARO CMP3 #### [facility] [address] Bilirubin [Mass/Vol] 0.8 mg/dL Normal 0.2-1.3 [facility] Comment on above: Performed By: #### H GILDA LAM3 #### [address] [address] CO2 [Moles/Vol] 27 mmol/L Normal 22-30 [facility] Comment on above: Performed By: #### H GILDA LAM3 #### [address] [address] Creatinine [Mass/Vol] 0.69 mg/dL Normal 0.52-1.25 [facility] Comment on above: Performed By: #### H GILDA LAM3 #### [address] [address] GFR/1.73 sq M.predicted among blacks MDRD (S/P/Bld) [Vol rate/Area] mL/min/{1.73_m2} Normal >60 [facility] Comment on above: Performed By: #### H GILDA LAM3 #### [address] [address] GFR/1.73 sq M.predicted among non-blacks MDRD (S/P/Bld) [Vol rate/Area] 84.1 mL/min/{1.73_m2} Normal >60 [facility] Comment on above: Result Comment: KDIG [...] Performed By: #### H GILDA LAM3 #### [facility] [address] Protein [Mass/Vol] 6.8 g/dL Normal 6.3-8.2 [facility] Comment on above: Performed By: #### H EMDF, CMP3 #### [facility] [address] Urea nitrogen [Mass/Vol] 15 mg/dL Normal 7-20 [facility] Comment on above: Performed By: #### H EMDF CMP3 #### [facility] [address], [place] Potassium [Moles/Vol] 3.5 mmol/L Normal 3.5-5.1 [facility] Comment on above: Performed By: #### H EMDF, CMP3 #### [address] [address], [place] Sodium [Moles/Vol] 138 mmol/L Normal 135-145 [facility] Comment on above: Performed By: #### H EMDAgatha CMP3 #### [facility] [address] Albumin [Mass/Vol] 3.3 g/dL Low 3.5-5.0 [facility] Comment on above: Performed By: #### H EMDAgatha, CMP3 #### [facility] [address] Chloride [Moles/Vol] 104 mmol/L Normal 98-107 [facility] Comment on above: Performed By: #### H EMDAgatha CMP3 #### [facility] [address], [place] Complete Urinalysison 2019 Appearance (U) Turbid Abnormal Clear [facility] Comment on above: Result Comment: . Performed By: #### C UA2 #### [facility] [address] Bacteria Moderate Abnormal Negative [facility] Comment on above: Result Comment: . Performed By: #### C UA2 #### [address] [address] [address], [place] Bilirubin,Urine Negative Normal Negative [facility] Comment on above: Result Comment: . Performed By: #### C UA2 #### [facility] [address], [place] Cast, Hyaline Negative Normal Negative [facility] Comment on above: Result Comment: . Performed By: #### C UA2 #### [facility] [address], [place] Color (U) Yellow Normal Lt. Yellow [facility] Comment on above: Result Comment: . Performed By: #### C UA2 #### [facility] [address] Glucose Ql (U) Normal Normal Normal (<70) [facility] Comment on above: Result Comment: . Performed By: #### C UA2 #### [address] [place] [address] [address] [place], [place] Ketone,Urine Negative Normal Negative [facility] Comment on above: Result Comment: . Performed By: #### C UA2 #### [address] [address] [address] [place], [place] Leukocytes,Urine 500 Nolvia/uL Abnormal Negative [facility] Comment on above: Result Comment: . Performed By: #### C UA2 #### [address] [place], [place] Mucous Threads Few Normal Negative [facility] Comment on above: Result Comment: . Performed By: #### C UA2 #### [address] [place] [address] [address] [place], [place] Nitrites,Urine Negative Normal Negative [facility] Comment on above: Result Comment: . Performed By: #### C UA2 #### [facility] [address], [place] Non-Squamous Epithelial 1 /[HPF] Abnormal Negative S [facility] Comment on above: Result Comment: . Performed By: #### C UA2 #### [address] [place] [place], [place] Occult Blood,Urine 0.2 mg/dL Abnormal Negative [facility] Comment on above: Result Comment: . Performed By: #### C UA2 #### [address] [place] [address] [place] pH,Urine 6.5 Normal 5.0-8.0 [facility] Comment on above: Result Comment: . Performed By: #### C UA2 #### [place] [place] [address] [address], [place] Protein (U) [Mass/Vol] 50 mg/dL Abnormal Negative [facility] Comment on above: Result Comment: . Performed By: #### C UA2 #### [place] [address] [address], [place] RBC, Urine 6 - 10 Abnormal 0-2 [facility] Comment on above: Result Comment: . Performed By: #### C UA2 #### [place] [address] [address], [place] Specific [place],Urine 1.023 Normal 1.005 - 1.030 [facility] Comment on above: Result Comment: . Performed By: #### C UA2 #### [place] [address] [address] [place], [place] Squamous Epithelial 6 - 10 Abnormal 3-5 [facility] Comment on above: Result Comment: . Performed By: #### C UA2 #### [place] [address] [address], [place] Urobilinogen,Urine Normal Normal Normal (0-1) [facility] Comment on above: Result Comment: . Performed By: #### C UA2 #### [place] [address] [address], [place] WBC LM.HPF (Urine sed) [#/Area] /[HPF] Abnormal 0-5 [facility] Comment on above: Result Comment: . Performed By: #### C UA2 #### [place] [address] [address], [place] Comprehensive Metabolic Pane steffi 09-06-2020 Albumin [Mass/Vol] 3.3 g/dL Low 3.5 - 5 g/dL [facility], [place] ALP [Catalytic activity/Vol] 64 U/L 38 - 126 U/L [place], [place] ALT [Catalytic activity/Vol] 10 U/L 0 - 34 U/L [place] Comment on above: The ALT test is perf ormed by an updated assay method. Please note that the reference intervals have been changed and are now sex specific. Anion gap [Moles/Vol] 8 mmol/L [place], [place] AST [Catalytic activity/Vol] 32 U/L 15 - 46 U/L [place] Bilirubin Ql (U) 0.8 mg/dL 0.2 - 1.3 mg/dL [place] Calcium [Mass/Vol] 8.9 mg/dL 8.4 - 10. 4 mg/dL [place] Chloride [Moles/Vol] 104 mmol/L 98 - 10 7 mmol/L [place] CO2 [Moles/Vol] 27 mmol/L 22 - 30 mmol/L [place] Creatinine [Mass/Vol] 0.69 mg/dL 0.52 - 1.25 mg/dL [place] EGFR IF NonAfrican [place] 84.1 mL/min >60 [place] Comment on above: KDIGO guidelines pro [...] MDRD (S/P/Bld) [Vol rate/Area] mL/min/{1.73_m2} >60 mL/min [place] Glucose [Mass/Vol] 120 mg/dL High 70 - 100 mg/dL [place] Interpretation and review of laboratory results Abnormal [place] Potassium [Moles/Vol] 3.5 mmol/L 3.5 - 5.1 mmol/L [place] Protein [Mass/Vol] 6.8 g/dL 6.3 - 8.2 g/dL [place] Sodium [Moles/Vol] 138 mmol/L 135 - 145 mmol/L [place] Urea nitrogen [Mass/Vol] 15 mg/dL 7 - 20 mg/dL [place] Test Performed by [facility], [address] [place] [address] [place], [place] ED Provider Noteon 0 ED Provider Note Emergency Department Encounter [facility] EMERGENCY DEPT Patient: Lisa Up : 1945 [...] urinary symptoms. Patient states she was at [facility] on Friday, she was there [...] [employer] Enrico Castorena MD 09/06/20 1609 [facility] ED Provider Note [facility] EMERGENCY DEPT EMERGENCY [...] Patient states she has been seen at [facility] twice for these symptoms. Patient was [...] otherwise acutely negative except as in the PLATINUM. PAST MEDICAL HISTORY Past Medical History: Diagnosis [...] together: Not (more content not included)... Normal [facility] Hemogram (CBC) w/Auto Diffon 09-06-2020 Absolute Baso # 0.0 10*3/uL 0 - 0.2 10*3/uL [place] Absolute Neut # 5.9 10*3/uL 1.8 - 7 10*3/uL [place] Basophils/100 WBC (Bld) 0.2 % 0 - 2 % [place] Eosinophils (Bld) [#/Vol] 0.6 10*3/uL High 0 - 0.5 10*3/uL [place] Eosinophils/100 WBC (Bld) 6.5 % High 1 - 6 % [place] Erythrocyte distribution width (RBC) [Ratio] 13.7 % 11.5 - 14.5 % [place] Granulocytes/100 WBC (Bld) 68.1 % 40 - 80 % [place] Hematocrit (Bld) [Volume fraction] 38.9 % 35 - 47 % [place] Hemoglobin (Bld) [Mass/Vol] 12.7 g/dL 11.7 - 16 g/dL [place] Interpretation and review of laboratory results Abnormal [place] Lymphocytes (Bld) [#/Vol] 1.8 10*3/uL 1 - 4.3 10*3/uL [place] Lymphocytes/100 WBC (Bld) 20.1 % 20 - 40 % [place] MCH (RBC) [Entitic mass] 30.5 pg 26 - 34 pg [place] MCHC (RBC) [Mass/Vol] 32.7 % 32 - 36 % [place] MCV (RBC) [Entitic vol] 93.2 fL 79 - 98 fL [place] Monocytes (Bld) [#/Vol] 0.4 10*3/uL 0 - 0.8 10*3/uL [place] Monocytes/100 WBC (Bld) 5.1 % 2 - 10 % [place] Platelet mean volume (Bld) [Entitic vol] 7.4 fL 7.4 - 10.4 fL [place] Platelets (Bld) [#/Vol] 216 10*3/uL 140 - 440 10*3/uL [place] RBC (Bld) [#/Vol] 4.17 10*6/uL 3.8 - 5.2 10*6/uL [place] WBC (Bld) [#/Vol] 8.7 10*3/uL 3.6 - 10.7 10*3/uL [place] Test Performed by [facility], [address] [place] [address] [place] Hemogram w/ Autodiffon 09-06 Abs Baso Cnt 0.0 10*3/uL Normal 0.0-0.2 [facility] Comment on above: Performed By: #### H GENARO CMP3 #### [facility] [place] [address] [address] Abs Neutrophile Cnt 5.9 10*3/uL Normal 1.8-7.0 [facility] Comment on above: Performed By: #### H EMDF CMP3 #### [facility] [address], [place] Basophils/100 WBC (Bld) 0.2 % Normal 0.0-2.0 [facility] Comment on above: Performed By: #### H EMDF CMP3 #### [facility] [address], [place] Eosinophils (Bld) [#/Vol] 0.6 10*3/uL High 0.0-0.5 [facility] Comment on above: Performed By: #### H EMDF CMP3 #### [place] [address] [place], [place] Eosinophils/100 WBC (Bld) 6.5 % High 1.0-6.0 [facility] Comment on above: Performed By: #### H EMDF CMP3 #### [place] [address] [place] Erythrocyte distribution width (RBC) [Ratio] 13.7 % Normal 11.5-14.5 [facility] Comment on above: Performed By: #### H EMDF CMP3 #### [place] [address] [place] Granulocytes/100 WBC (Bld) 68.1 % Normal 40.0-80.0 [facility] Comment on above: Performed By: #### H EMDF CMP3 #### [place] [address] [address] Hematocrit (Bld) [Volume fraction] 38.9 % Normal 35.0-47.0 [facility] Comment on above: Performed By: #### H EMDF CMP3 #### [address] Hemoglobin (Bld) [Mass/Vol] 12.7 g/dL Normal 11.7-16.0 [facility] Comment on above: Performed By: #### H EMDF CMP3 #### [place] [address] [place] Lymphocytes (Bld) [#/Vol] 1.8 10*3/uL Normal 1.0-4.3 [facility] Comment on above: Performed By: #### H GENARO CMP3 #### [facility] [address], [place] Lymphocytes/100 WBC (Bld) 20.1 % Normal 20.0-40.0 [facility] Comment on above: Performed By: #### H GENARO CMP3 #### [facility] [address], [place] MCH (RBC) [Entitic mass] 30.5 pg Normal 26.0-34.0 [facility] Comment on above: Performed By: #### H GENARO CMP3 #### [place] [address] [address] [place] MCHC 32.7 % Normal 32.0-36.0 [facility] Comment on above: Performed By: #### H GENARO CMP3 #### [place] [address] [address] MCV (RBC) [Entitic vol] 93.2 fL Normal 79.0-98.0 [facility] Comment on above: Performed By: #### H GENARO CMP3 #### [place] [address] [address] [place], [place] Monocytes (Bld) [#/Vol] 0.4 10*3/uL Normal 0.0-0.8 [facility] Comment on above: Performed By: #### H GENARO CMP3 #### [place] [address] [address], [place] Monocytes/100 WBC (Bld) 5.1 % Normal 2.0-10.0 [facility] Comment on above: Performed By: #### H GENARO CMP3 #### [place] [address] [address], [place] Platelet mean volume (Bld) [Entitic vol] 7.4 fL Normal 7.4-10.4 [facility] Comment on above: Performed By: #### H GENARO CMP3 #### [facility] [address] [place] [address] Platelets (Bld) [#/Vol] 216 10*3/uL Normal 140-440 [facility] Comment on above: Performed By: #### H EMDF, CMP3 #### [facility] [address] [place] [address] RBC (Bld) [#/Vol] 4.17 10*6/uL Normal 3.80-5.20 [facility] Comment on above: Performed By: #### H EMDF, CMP3 #### [facility] [address] [place] [address] WBC (Bld) [#/Vol] 8.7 10*3/uL Normal 3.6-10.7 [facility] Comment on above: Performed By: #### H EMDF, CMP3 #### [facility] [address] [place] [address] Urinalysison 09-06-2020 Appearance (U) Turbid Abnormal Clear [place] Comment on above: . Bacteria, UA Moderate Abnormal Negative /[HPF] [place] Comment on above: . Bilirubin Urine Negative Negative mg/dL [place] Comment on above: . Color (U) Yellow Lt. Yellow NA [place] Comment on above: . Glucose, Ur Normal Normal (<70) mg/dL [place] Comment on above: . Hyaline Casts, UA Negative Negative /[LPF] [place] Comment on above: . Interpretation and review of laboratory results Abnormal [place] Ketones Ql (U) Negative Negative mg/dL [place] Comment on above: . LEUKOCYTES, UA 500 Abnormal Negative Nolvia/uL [place] Comment on above: . Mucous Threads Few Negative /[LPF] [place] Comment on above: . Nitrite, Urine Negative Negative [place] Comment on above: . Non-Squamous Epithelial 1 /[HPF] Abnormal Negative [place] Comment on above: . Occult Blood,Urine 0.2 mg/dL Abnormal Negative [place] Comment on above: . pH (U) 6.5 [pH] [place] Comment on above: . Protein (U) [Mass/Vol] 50 mg/dL Abnormal Negative [place] Comment on above: . RBC (U) [#/Vol] 6-10 Abnormal 0 - 2 /[HPF] [place] Comment on above: . Specific [place], Urine 1.023 M [place] Comment on above: . Squam Epithel, UA 6-10 Abnormal 3 - 5 /[HPF] [place] Comment on above: . Urobilinogen, Urine Normal Normal (0-1) mg/dL [place] Comment on above: . WBC, UA >100 Abnormal 0 - 5 /[HPF] [place] Comment on above: . Test Performed by [facility], [address] [place] [address] [place] XR CHEST PORTABLEon 09-06-20 [facility], [facility] Incoming Radiology Results From [facility] - 09/06/2020 5:28 PM EST Patient Name: LISA UP Diagnostic Radiology ACCESSION EXAM DATE/TIME PROCEDURE ORDERING PROVIDER [id number] 09/06/2020 17:28 EST CR Chest Portable MD CASTORENA JESSE CPT code 68978 Reason For Exam (CR Chest Portable) Fever [...] WILLIAM Transcribed Date and Time: 09/06/2020 5:19 [place], [place] Patient Name: LISA UP Diagnostic Radiology ACCESSION EXAM DATE/TIME PROCEDURE ORDERING PROVIDER [id number] 09/06/2020 17:28 EST CR Chest Portable MD YESY, ENRICO CPT code 65017 Reason For Exam (CR Chest Portable) Fever [...] WILLIAM Transcribed Date and Time: 09/06/2020 5:19 [facility], [place] XR Chest PA and Lateralon IMPRESSION: Bilateral small pleural effusions. Oxyhydrogen Welder: IVAN Transcribe Date/Time: Aug 30 2020 6:54P [...] in the spine. DIVISION OF RADIOLOGY Provider, [facility] - 08/30/2020 * * *Final [...] spine. IMPRESSION IMPRESSION: Bilateral small pleural effusions. Oxyhydrogen Welder: IVAN Transcribe Date/Time: Aug 30 2020 6:54P Dictated by : RICARDO HDEZ MD This examination was interpreted and the report reviewed and electronically signed by: RICARDO HDEZ MD on Aug 30 2020 6:56PM EST [facility] Radiology Study observation (narrative) [facility] XR Chest PA and LateralOrder ed By: [facility] Provider on 08-30-2020 [facility] Basic Panelon 05-02-2019 Calcium [Mass/Vol] 9.6 mg/dL Normal 8.5-10.1 [facility] Comment on above: Performed By: #### L P8 #### [place] [address] CO2 Blood 32 mEq/L Normal 21-32 [facility] Comment on above: Performed By: #### L P8 #### [place] [address] Creatinine [Mass/Vol] 0.63 mg/dL Normal 0.51-0.95 [facility] Comment on above: Performed By: #### L P8 #### [place] [address] Glucose [Mass/Vol] 111 mg/dL High 70-99 [facility] Comment on above: Performed By: #### L P8 #### [place] [address] Urea nitrogen [Mass/Vol] 10 mg/dL Normal 7-18 [facility] Comment on above: Performed By: #### L P8 #### [facility] [address] [place] [address] Chloride [Moles/Vol] 102 mmol/L Normal 98-109 [facility] Comment on above: Result Comment: Test ing performed on an Angelo i-STAT. Performed By: #### L P8 #### [facility] [address] [place] [address] Potassium [Moles/Vol] 3.3 mmol/L Low 3.5-4.9 [facility] Comment on above: Result Comment: Test ing performed on an Angelo i-STAT. Performed By: #### L P8 #### [place] [address] Sodium [Moles/Vol] 141 mmol/L Normal 138-146 [facility] Comment on above: Result Comment: Test ing performed on an Angelo i-STAT. Performed By: #### L P8 #### [place] [address] Hemogram/Manual Diffon 05-02 Abs. Baso 0.09 thou/cmm High 0.00-0.08 [facility] Comment on above: Performed By: #### L MCBD #### [place] [address] Abs. Eosin 0.18 thou/cmm Normal 0.00-0.41 [facility] Comment on above: Performed By: #### L MCBD #### [facility] [address] [place] [address] Abs. Lymph 3.78 thou/cmm High 1.50-3.65 [facility] Comment on above: Performed By: #### L MCBD #### [place] [address] Abs. Centre 0.79 thou/cmm Normal 0.20-1.00 [facility] Comment on above: Performed By: #### L MCBD #### [place] [id number] Abs. Neut (ANC) 3.96 thou/cmm Normal 3.00-5.67 [facility] Comment on above: Performed By: #### L MCBD #### [facility] [address] [place] [address] Anisocytosis Ql (Bld) Slight Normal [facility] Comment on above: Performed By: #### L MCBD #### [facility] [address] [place] [address] Atypical Lymph 15.0 % Normal [facility] Comment on above: Performed By: #### L MCBD #### [facility] [address] [place] [address] Basophil 1.0 % Normal [facility] Comment on above: Performed By: #### L MCBD #### [facility] [address] [place] [address] Eosinophil 2.0 % Normal [facility] Comment on above: Performed By: #### L MCBD #### [facility] [address] [place] [address] Lymphocyte 28.0 % Normal [facility] Comment on above: Performed By: #### L MCBD #### [facility] [address] [place] [address] Monocyte 9.0 % Normal [facility] Comment on above: Performed By: #### L MCBD #### [facility] [address] [place] [address] Platelets (Bld) [#/Vol] Normal Normal [facility] Comment on above: Performed By: #### L MCBD #### [facility] [address] [place] [address] Seg Neutrophil 45.0 % Normal [facility] Comment on above: Performed By: #### L MCBD #### [facility] [address] [place] [address] Toxic Granulation Few Normal [facility] Comment on above: Performed By: #### L MCBD #### [place] [address] Diff Type Manual Diff Normal [facility] Comment on above: Performed By: #### L MCBD #### [facility] [address] [place] [address] Erythrocyte distribution width (RBC) [Ratio] 14.3 % Normal 11.5-15.9 [facility] Comment on above: Performed By: #### L MCBD #### [facility] [address] [place] [address] Hematocrit (Bld) [Volume fraction] 40.0 % Normal 37.0-47.0 [facility] Comment on above: Performed By: #### L MCBD #### [facility] [address] [place] [address] Hemoglobin (Bld) [Mass/Vol] 12.5 g/dL Normal 12.0-16.0 [facility] Comment on above: Performed By: #### L MCBD #### [facility] [address] [place] [address] MCH (RBC) [Entitic mass] 29.5 pg Normal 27.0-31.0 [facility] Comment on above: Performed By: #### L MCBD #### [facility] [address] [place] [address] MCHC (RBC) [Mass/Vol] 31.3 % Low 32.0-36.0 [facility] Comment on above: Performed By: #### L MCBD #### [facility] [address] [place] [address] MCV (RBC) [Entitic vol] 94.3 fl Normal 81.0-99.0 [facility] Comment on above: Performed By: #### L MCBD #### [facility] [address] [place] [address] Platelet mean volume (Bld) [Entitic vol] 9.6 fl Normal 7.1-10.5 [facility] Comment on above: Performed By: #### L MCBD #### [facility] [address] [place], [place] [address] Platelets (Bld) [#/Vol] 212 thou/cmm Normal 150-400 [facility] Comment on above: Performed By: #### L MCBD #### [facility] [address] [place] [address] RBC (Bld) [#/Vol] 4.24 mil/cmm Normal 4.20-5.40 [facility] Comment on above: Performed By: #### L MCBD #### [facility] [address] [place] [address] WBC (Bld) [#/Vol] 8.8 thou/cmm Normal 4.8-10.5 [facility] Comment on above: Performed By: #### L MCBD #### [facility] [address] [place] [address] MDRD eGFRon 05-02-2019 GFR/1.73 sq M predicted among non-blacks MDRD (S/P/Bld) [Vol rate/Area] mL/min/{1.73_m2} Normal >60mL/min/1 .73m2 [facility] Comment on above: Result Comment: If t he patient is , multiply the result by 1.210. Performed By: #### L GFR #### [place] [address] Macroscopic Urinalysison Appearance (U) CLEAR Normal [facility] Comment on above: Performed By: #### L MACU #### [facility] [address] [place] [address] Bilirubin Urine Negative Normal Negative [facility] Comment on above: Performed By: #### L MACU #### [facility] [address] [place] [address] Color (U) YELLOW Normal [facility] Comment on above: Performed By: #### L MACU #### [place] [address] Glucose Ql (U) Negative Normal Negative [facility] Comment on above: Performed By: #### L MACU #### [place] [address] Hemoglobin,Urine Negative Normal Negative [facility] Comment on above: Performed By: #### L MACU #### [address] [address] Ketone Urine Negative Normal Negative [facility] Comment on above: Performed By: #### L MACU #### [place] [address] Leukocytes Esterase Negative Normal Negative [facility] Comment on above: Performed By: #### L MACU #### [place] [address] Nitrites Urine Negative Normal Negative [facility] Comment on above: Performed By: #### L MACU #### [place] [address] pH (U) 7.0 [pH] Normal 5.0-8.0 [facility] Comment on above: Performed By: #### L MACU #### [place] [address] Protein (U) [Mass/Vol] Negative Normal Negative [facility] Comment on above: Performed By: #### L MACU #### [place] [address] Specific [place], Ur 1.020 Normal 1.005-1.030 [facility] Comment on above: Performed By: #### L MACU #### [place] [address] Urobilinogen,Ur 0.2 EU/dL Normal 0.2-1.0 [facility] Comment on above: Performed By: #### L MACU #### [place] [address] Troponin Ion 05-02-2019 Troponin I.cardiac [Mass/Vol] ng/mL Normal <=0.07 [facility] Comment on above: Performed By: #### L TRP #### [place] [address] UA Completeon 02-22-2018 UA Blood 1+ Abnormal Negative [facility] Comment on above: Performed By: #### 8 [id number] ####DE[place] [address] UA Bacteria Trace Abnormal None [facility] Comment on above: Performed By: #### 8 [id number] ####DEBORAH [facility] [id number] [place] [address] UA Clarity Clear Normal Clear [facility] Comment on above: Performed By: #### 8 [id number] ####DEBORAH [facility] [address]6426 [place] [address] UA Leuk Est Trace Normal Negative [facility] Comment on above: Performed By: #### 8 [id number] ####DEBORAH [facility] [address]ulice8719 [place] [address] UA Nitrite Negative Normal Negative [facility] Comment on above: Performed By: #### 8 [id number] ####DEBORAH [facility] [address] [place] [address] UA pH 7.0 Normal 4.6-8.0 [facility] Comment on above: Performed By: #### 8 [id number] ####DEBORAH [facility] [address] [place] [address] UA Protein Negative Normal Negative [facility] Comment on above: Performed By: #### 8 [id number] ####DEBORAH [facility] [address] [place] [address] UA Spec Grav 1.008 Normal 1.003-1.030 [facility] Comment on above: Performed By: #### 8 [id number] ####DEBORAH [facility] [address]5786 [place] [address] UA Squam Epithelial 0-5 Normal 0-5 [facility] Comment on above: Performed By: #### 8 [id number] ####DEBORAH [facility] [address] [place] [address] UA Urobilinogen Negative Normal [facility] Comment on above: Performed By: #### 8 [id number] ####DEBORAH [facility] [address] [place] [address] UA WBC 0-5 Normal 0-5 [facility] Comment on above: Performed By: #### 8 [id number] ####DEBORAH [facility] [address] [place] [address] Urine, color Straw Normal Yellow [facility] Comment on above: Performed By: #### 8 [id number] ####DEBORAH [facility] Ixbaqspign7847 [place] [address] Urine, erythrocytes 0-3 Normal 0-3 [facility] Comment on above: Performed By: #### 8 [id number] ####DEBORAH [facility] Qxelyjeteq4040 [place] [address] Urine, glucose Negative Normal Negative [facility] Comment on above: Performed By: #### 8 [id number] ####DEBORAH [facility] [address]unasj1909 [place] [address] Urine, ketones presence Negative Normal Negative [facility] Comment on above: Performed By: #### 8 [id number] ####DEBORAH [facility] [address]7937 [place] [address] Urine, urobilinogen Negative Normal Negative [facility] Comment on above: Performed By: #### 8 [id number] ####DEBORAH Ur[facility] Z[address]uvmkmqv7412 [place] [address] EMERGENCY DEPARTMENT SUMMARY on 11-30-2017 EMERGENCY DEPARTMENT SUMMARY [facility] EMERGENCY DEPARTMENT SUMMARY NAME NUMBER SEX AGE ADMIT DISC TYPE MED.RECORD# ANNEL Snider [id number] F [id number] 11/18/17 11/18/17 Flavio.Aliya [id number] ROOM:[facility] DATE OF :1945 PHYSICIAN NO.:[id number] PHYSICIAN NAME:EDUAR Alcantara M.D. PHYSICIAN:NO DOCTOR ON [...] Pavel Alcantara MD TD: 13:51 JOB #: [id number] Electronically signed by: EDUAR Alcantara M.D. 11/30/17 06:59 Transcribed by: am 11/19/2017 12:39 Normal [facility] Bacteria identified Anaer cx Nom (Unsp spec) Anaerobic microbial culture No anaerobic bacteria isolated. [facility] Work Phone: Bacteria identified Cx Nom ( Wound) Wound Culture Klebsiella pneumonia e sp pneum [facility] Work Phone: Gram stain for investigation of transfusion reaction Microscopic observation Gram stain Nom (Unsp spec) [facility] Work Phone: No Panel Information [facility] Vital Signs Date Time Vital Sign Value Performing Clinician Facility 04-01-2025 18:00-0400 Diastolic blood pressure 71 mm[Hg] Dr. Sylvia Lizama MD Work Phone: [phone] [place] [address] 04-01-2025 18:00-0400 Heart rate 70 /min Dr. Sylvia Lizama MD Work Phone: [phone] [place] [address] 04-01-2025 18:00-0400 Respiratory rate 15 /min Dr. Sylvia Lizama MD Work Phone: [phone] [place] [address] 04-01-2025 18:00-0400 SaO2% (BldA) [Mass fraction] 97 % Dr. Sylvia Lizama MD Work Phone: [phone])[phone] [place] [address] 04-01-2025 18:00-0400 Systolic blood pressure 167 mm[Hg] Dr. Sylvia Lizama MD Work Phone: 7(843)839-795026 [place] [address] 04-01-2025 17:35-0400 Body temperature 98 [degF] Dr. Sylvia Lizama MD Work Phone: [phone] [place] [address] 04-01-2025 15:08-0400 Body mass index (BMI) [Ratio] 43.9 kg/m2 Dr. Sylvia Lizama MD Work Phone: [phone] [place] [address] 04-01-2025 15:08-0400 Body weight [address] Sylvia Lizama MD Work Phone: 1(092)[phone] [place] [address] 04-01-2025 12:34-0400 Body height 157.[address] Sylvia Lizama MD Work Phone: [phone] [place] [address] 03-22-2025 10:05-0400 Body mass index (BMI) [Ratio] 44.99 kg/m2 Asad Deras Work Phone: [facility] 03-22-2025 10:05-0400 Body temperature 98.2 [degF] Asad Deras Work Phone: [facility] [facility] 03-22-2025 10:05-0400 Body weight 111.58 kg Asadlindsay Deras Work Phone: [facility] 03-22-2025 10:05-0400 Diastolic blood pressure 78 mm[Hg] Asadlindsay Deras Work Phone: [facility] 03-22-2025 10:05-0400 Heart rate 62 /min Asadlindsay Deras Work Phone: [facility] 03-22-2025 10:05-0400 SaO2% (BldA) [Mass fraction] 97 % Asad Deras Work Phone: [facility] 03-22-2025 10:05-0400 Systolic blood pressure 144 mm[Hg] Asad Deras Work Phone: [facility] 03-14-2025 14:55-0400 Diastolic blood pressure 78 mm[Hg] Gini Haagen [employer] Work Phone: [facility] 03-14-2025 14:55-0400 Heart rate 68 /min Gini Haagen [employer] Work Phone: [facility] 03-14-2025 14:55-0400 Respiratory rate 16 /min Gini Haagen [employer] Work Phone: [facility] 03-14-2025 14:55-0400 SaO2% (BldA) [Mass fraction] 97 % Gini Haagen [employer] Work Phone: [facility] 03-14-2025 14:55-0400 Systolic blood pressure 170 mm[Hg] Gini Haagen [employer] Work Phone: [facility] 03-01-2025 11:24-0400 Body mass index (BMI) [Ratio] 44.63 kg/m2 Judith Pickard [employer] Work Phone: [facility] 03-01-2025 11:24-0400 Body weight 110.68 kg Judith Pickard [employer] Work Phone: [facility] 03-01-2025 11:24-0400 Diastolic blood pressure 66 mm[Hg] Judith Suppan [employer] Work Phone: [facility] 03-01-2025 11:24-0400 Heart rate 64 /min Judith Suppan [employer] Work Phone: [facility] 03-01-2025 11:24-0400 SaO2% (BldA) [Mass fraction] 96 % Judith Suppan [employer] Work Phone: [facility] 03-01-2025 11:24-0400 Systolic blood pressure 124 mm[Hg] Judith Suppan [employer] Work Phone: [facility] 12-28-2024 15:49-0400 Body height 157.5 cm Sylvia Lizama MD Work Phone: [facility] 12-28-2024 15:49-0400 Body mass index (BMI) [Ratio] 44.08 kg/m2 Sylvia Lizama MD Work Phone: [facility] 12-28-2024 15:49-0400 Body weight 109.32 kg Sylvia Lizama MD Work Phone: [facility] 12-28-2024 15:49-0400 Diastolic blood pressure 70 mm[Hg] Sylvia Lizama MD Work Phone: [facility] 12-28-2024 15:49-0400 Heart rate 75 /min Sylvia Lizama MD Work Phone: [facility] 12-28-2024 15:49-0400 SaO2% (BldA) [Mass fraction] 98 % Sylvia Lizama MD Work Phone: [facility] 12-28-2024 15:49-0400 Systolic blood pressure 134 mm[Hg] Sylvia Lizama MD Work Phone: [facility] 12-10-2024 09:12-0400 Body mass index (BMI) [Ratio] 43.24 kg/m2 César Quintero DO Work Phone: [facility] 12-10-2024 09:12-0400 Body temperature 97.81 [degF] César Quintero DO Work Phone: [facility] 12-10-2024 09:12-0400 Body weight 109.32 kg César Guzmani DO Work Phone: [facility] 12-10-2024 09:12-0400 Diastolic blood pressure 62 mm[Hg] César Guzmani DO Work Phone: [facility] 12-10-2024 09:12-0400 Heart rate 70 /min César Guzmani DO Work Phone: [facility] 12-10-2024 09:12-0400 SaO2% (BldA) [Mass fraction] 96 % César Quintero DO Work Phone: [facility] 12-10-2024 09:12-0400 Systolic blood pressure 100 mm[Hg] César Guzmani DO Work Phone: [facility] 12-01-2024 14:00-0400 SaO2% (BldA) [Mass fraction] 96 % Dr. Sylvia Lizama MD Work Phone: [facility] 12-01-2024 08:15-0400 Heart rate 71 /min Dr. Sylvia Lizama MD Work Phone: [facility] 12-01-2024 03:00-0400 Body temperature 99.4 [degF] Dr. Sylvia Lizama MD Work Phone: [facility] 12-01-2024 03:00-0400 Diastolic blood pressure 73 mm[Hg] Dr. Sylvia Lizama MD Work Phone: [facility] 12-01-2024 03:00-0400 Respiratory rate 18 /min Dr. Sylvia Lizama MD Work Phone: [facility] 12-01-2024 03:00-0400 Systolic blood pressure 143 mm[Hg] Dr. Sylvia Lizama MD Work Phone: [facility] 11-30-2024 15:27-0400 Body height 160.[address] Sylvia Lizama MD Work Phone: 5(502)183-020008 [place] [address] 11-30-2024 15:27-0400 Body weight 106.[address] Sylvia Lizama MD Work Phone: 2(848)027-218908 [place] [address] 11-26-2024 17:31-0500 Body mass index (BMI) [Ratio] 41.6 kg/m2 Dr. Sylvia Lizama MD Work Phone: 8(903)990-712008 [place] [address] 11-26-2024 17:00-0500 Diastolic blood pressure 75 mm[Hg] Dr. Sylvia Lizama MD Work Phone: 2(524)287-273808 [place] [address] 11-26-2024 17:00-0500 Heart rate 72 /min Dr. Sylvia Lizama MD Work Phone: 8(448)763-328308 [place] [address] 11-26-2024 17:00-0500 Respiratory rate 18 /min Dr. Sylvia Lizama MD Work Phone: 1(956)775-558608 [place] [address] 11-26-2024 17:00-0500 SaO2% (BldA) [Mass fraction] 95 % Dr. Sylvia Lizama MD Work Phone: 1(403)161-490508 [place] [address] 11-26-2024 17:00-0500 Systolic blood pressure 165 mm[Hg] Dr. Sylvia Lizama MD Work Phone: 8(040)967-883008 [place] [address] 11-26-2024 15:20-0500 Body temperature 99 [degF] Dr. Sylvia Lizama MD Work Phone: 1(341)341-975708 [place] [address] 11-26-2024 11:22-0500 Body height 157.[address] Sylvia Lizama MD Work Phone: 9(812)166-593008 [place] [address] 11-26-2024 11:22-0500 Body mass index (BMI) [Ratio] 44.4 kg/m2 Dr. Sylvia Lizama MD Work Phone: 3(294)058-018108 [place] [address] 11-26-2024 11:22-0500 Body weight 110.[address] Sylvia Lizama MD Work Phone: 8(525)190-283408 [place] [address] 11-12-2024 15:48-0500 Diastolic blood pressure 86 mm[Hg] Judith Pickard APRN.CNP Work Phone: [facility] 11-12-2024 15:48-0500 Systolic blood pressure 146 mm[Hg] Judith Suppan [employer] Work Phone: [facility] 11-12-2024 15:23-0500 Body mass index (BMI) [Ratio] 43.06 kg/m2 Judith Suppan [employer] Work Phone: [facility] 11-12-2024 15:23-0500 Body temperature 100.9 [degF] Judith Suppan [employer] Work Phone: [facility] 11-12-2024 15:23-0500 Body weight 108.86 kg Judith Suppan [employer] Work Phone: [facility] 11-12-2024 15:23-0500 Heart rate 71 /min Judith Suppan [employer] Work Phone: [facility] 11-12-2024 15:23-0500 SaO2% (BldA) [Mass fraction] 99 % Judith Suppan [employer] Work Phone: [facility] 11-06-2024 15:46-0500 Body temperature 98.4 [degF] Dr. Sylvia Lizama MD Work Phone: [facility] 11-06-2024 15:46-0500 Diastolic blood pressure 101 mm[Hg] Dr. Sylvia Lizama MD Work Phone: [facility] 11-06-2024 15:46-0500 Heart rate 74 /min Dr. Sylvia Lizama MD Work Phone: [facility] 11-06-2024 15:46-0500 Respiratory rate 23 /min Dr. Sylvia Lizama MD Work Phone: [facility] 11-06-2024 15:46-0500 SaO2% (BldA) [Mass fraction] 95 % Dr. Sylvia Lizama MD Work Phone: [facility] 11-06-2024 15:46-0500 Systolic blood pressure 167 mm[Hg] Dr. Sylvia Lizama MD Work Phone: [facility] 11-01-2024 12:06-0500 Body mass index (BMI) [Ratio] 43.51 kg/m2 Elida Lozada [employer] Work Phone: [facility] 11-01-2024 12:06-0500 Body temperature 99.5 [degF] Elida Lozada [employer] Work Phone: [facility] 11-01-2024 12:06-0500 Body weight 110 kg Elida Lozada [employer] Work Phone: [facility] 11-01-2024 12:06-0500 Diastolic blood pressure 82 mm[Hg] Elida Lozada [employer] Work Phone: [facility] 11-01-2024 12:06-0500 Heart rate 68 /min Elida Lozada [employer] Work Phone: [facility] 11-01-2024 12:06-0500 SaO2% (BldA) [Mass fraction] 96 % Elida Lozada [employer] Work Phone: [facility] 11-01-2024 12:06-0500 Systolic blood pressure 130 mm[Hg] Elida Lozada [employer] Work Phone: [facility] 10-08-2024 08:40-0500 Body mass index (BMI) [Ratio] 43.78 kg/m2 Treatment Wstr Work Phone: [facility] 10-08-2024 08:40-0500 Body temperature 97.39 [degF] Treatment [facility]str Work Phone: [facility] 10-08-2024 08:40-0500 Body weight 110.68 kg Treatment Wstr Work Phone: [facility] 10-08-2024 08:40-0500 Diastolic blood pressure 55 mm[Hg] Treatment Wstr Work Phone: [facility] 10-08-2024 08:40-0500 Heart rate 78 /min Treatment Wstr Work Phone: [facility] 10-08-2024 08:40-0500 Respiratory rate 16 /min Treatment [facility]str Work Phone: [facility] 10-08-2024 08:40-0500 SaO2% (BldA) [Mass fraction] 96 % Treatment [facility]str Work Phone: [facility] 10-08-2024 08:40-0500 Systolic blood pressure 127 mm[Hg] Treatment Wstr Work Phone: [facility] 10-01-2024 13:14-0500 Diastolic blood pressure 60 mm[Hg] Treatment Wstr Work Phone: [facility] 10-01-2024 13:14-0500 Heart rate 60 /min Treatment [facility]str Work Phone: [facility] 10-01-2024 13:14-0500 SaO2% (BldA) [Mass fraction] 97 % Treatment [facility]str Work Phone: [facility] 10-01-2024 13:14-0500 Systolic blood pressure 150 mm[Hg] Treatment Wstr Work Phone: [facility] 10-01-2024 10:03-0500 Body mass index (BMI) [Ratio] 43.78 kg/m2 Treatment [facility] Work Phone: [facility] 10-01-2024 10:03-0500 Body temperature 97.11 [degF] Treatment [facility]str Work Phone: [facility] 10-01-2024 10:03-0500 Body weight 110.68 kg Treatment Wstr Work Phone: [facility] 09-24-2024 13:25-0500 Diastolic blood pressure 76 mm[Hg] Treatment Wstr Work Phone: [facility] 09-24-2024 13:25-0500 Heart rate 56 /min Treatment Wstr Work Phone: [facility] 09-24-2024 13:25-0500 Respiratory rate 16 /min Treatment Wstr Work Phone: [facility] 09-24-2024 13:25-0500 SaO2% (BldA) [Mass fraction] 96 % Treatment [facility]str Work Phone: [facility] 09-24-2024 13:25-0500 Systolic blood pressure 170 mm[Hg] Treatment Wstr Work Phone: [facility] 09-24-2024 13:00-0500 Body temperature 97.5 [degF] Treatment [facility]str Work Phone: [facility] 09-24-2024 08:41-0500 Body mass index (BMI) [Ratio] 43.69 kg/m2 Treatment [facility]str Work Phone: [facility] 09-24-2024 08:41-0500 Body weight 110.45 kg Treatment Wstr Work Phone: [facility] 09-17-2024 14:07-0500 Diastolic blood pressure 84 mm[Hg] Treatment Wstr Work Phone: [facility] 09-17-2024 14:07-0500 Heart rate 69 /min Treatment Wstr Work Phone: [facility] 09-17-2024 14:07-0500 Systolic blood pressure 148 mm[Hg] Treatment Wstr Work Phone: [facility] 09-17-2024 13:30-0500 Body temperature 97.81 [degF] Treatment Wstr Work Phone: [facility] 09-17-2024 13:30-0500 Respiratory rate 16 /min Treatment Wstr Work Phone: [facility] 09-17-2024 13:30-0500 SaO2% (BldA) [Mass fraction] 94 % Treatment [facility]str Work Phone: [facility] 09-17-2024 08:04-0500 Body height 159 cm Treatment Wstr Work Phone: [facility] 09-17-2024 08:04-0500 Body mass index (BMI) [Ratio] 44.32 kg/m2 Treatment [facility]str Work Phone: [facility] 09-17-2024 08:04-0500 Body weight 112.04 kg Treatment Wstr Work Phone: [facility] 09-03-2024 10:01-0500 Body mass index (BMI) [Ratio] 42.43 kg/m2 César Guzmani DO Work Phone: [facility] 09-03-2024 10:01-0500 Body temperature 97.59 [degF] César Guzmani DO Work Phone: [facility] 09-03-2024 10:01-0500 Body weight 108.64 kg César Guzmani DO Work Phone: [facility] 09-03-2024 10:01-0500 Diastolic blood pressure 56 mm[Hg] César Guzmani DO Work Phone: [facility] 09-03-2024 10:01-0500 Heart rate 68 /min César Guzmani DO Work Phone: [facility] 09-03-2024 10:01-0500 SaO2% (BldA) [Mass fraction] 97 % César Guzmani DO Work Phone: [facility] 09-03-2024 10:01-0500 Systolic blood pressure 91 mm[Hg] César Israeli DO Work Phone: [facility] 07-27-2024 13:44-0500 Body mass index (BMI) [Ratio] 42.57 kg/m2 Helen Praisler-Uli [employer] Work Phone: [facility] 07-27-2024 13:44-0500 Body temperature 98.91 [degF] Helen Praisler-Wood [employer] Work Phone: [facility] 07-27-2024 13:44-0500 Body weight 109 kg Helen Praisler-Wood [employer] Work Phone: [facility] 07-27-2024 13:44-0500 Diastolic blood pressure 93 mm[Hg] Helen Praisler-Wood [employer] Work Phone: [facility] 07-27-2024 13:44-0500 Heart rate 87 /min Helen Praisler-Wood [employer] Work Phone: [facility] 07-27-2024 13:44-0500 Respiratory rate 20 /min Helen Praisler-Wood [employer] Work Phone: [facility] 07-27-2024 13:44-0500 SaO2% (BldA) [Mass fraction] 98 % Helen Praisler-Wood [employer] Work Phone: [facility] 07-27-2024 13:44-0500 Systolic blood pressure 148 mm[Hg] Helen Praisler-Wood [employer] Work Phone: [facility] 07-27-2024 12:26-0500 Body mass index (BMI) [Ratio] 42.57 kg/m2 Missy Queener PA-C Work Phone: [facility] 07-27-2024 12:26-0500 Body weight 109 kg Missy Queener PA-C Work Phone: [facility] 07-27-2024 12:26-0500 Diastolic blood pressure 86 mm[Hg] Missy Queener PA-C Work Phone: [facility] 07-27-2024 12:26-0500 Heart rate 78 /min Missy Queener PA-C Work Phone: [facility] 07-27-2024 12:26-0500 Respiratory rate 14 /min Missy Queener PA-C Work Phone: [facility] 07-27-2024 12:26-0500 SaO2% (BldA) [Mass fraction] 94 % Missy Queener PA-C Work Phone: [facility] 07-27-2024 12:26-0500 Systolic blood pressure 146 mm[Hg] Missy Queener PA-C Work Phone: [facility] 07-06-2024 15:07-0400 Diastolic blood pressure 66 mm[Hg] Judith Pickard [employer] Work Phone: [facility] 07-06-2024 15:07-0400 Systolic blood pressure 114 mm[Hg] Judith Suppan [employer] Work Phone: [facility] 07-06-2024 14:46-0400 Body mass index (BMI) [Ratio] 41.86 kg/m2 Judith Suppan [employer] Work Phone: [facility] 07-06-2024 14:46-0400 Body weight 107.2 kg Judith Suppan [employer] Work Phone: [facility] 07-06-2024 14:46-0400 Heart rate 68 /min Judith Suppan [employer] Work Phone: [facility] 07-06-2024 14:46-0400 SaO2% (BldA) [Mass fraction] 100 % Judith Suppan [employer] Work Phone: [facility] 07-02-2024 11:51-0400 Diastolic blood pressure 71 mm[Hg] Judith Suppan [employer] Work Phone: [facility] 07-02-2024 11:51-0400 Systolic blood pressure 124 mm[Hg] Judith Suppan [employer] Work Phone: [facility] 07-02-2024 11:48-0400 Body mass index (BMI) [Ratio] 41.63 kg/m2 Judith Suppan [employer] Work Phone: [facility] 07-02-2024 11:48-0400 Body weight 106.59 kg Judith Suppan [employer] Work Phone: [facility] 07-02-2024 11:48-0400 Heart rate 71 /min Judith Suppan [employer] Work Phone: [facility] 07-02-2024 11:48-0400 SaO2% (BldA) [Mass fraction] 99 % Judith Suppan [employer] Work Phone: [facility] 06-17-2024 11:27-0400 Body mass index (BMI) [Ratio] 41.67 kg/m2 Judith Suppan [employer] Work Phone: [facility] 06-17-2024 11:27-0400 Body weight 106.7 kg Judith Suppan [employer] Work Phone: [facility] 06-17-2024 11:27-0400 Diastolic blood pressure 68 mm[Hg] Judith Suppan [employer] Work Phone: [facility] 06-17-2024 11:27-0400 Heart rate 68 /min Judith Suppan [employer] Work Phone: [facility] 06-17-2024 11:27-0400 Respiratory rate 16 /min Judith Suppan [employer] Work Phone: [facility] 06-17-2024 11:27-0400 SaO2% (BldA) [Mass fraction] 98 % Judith Suppan [employer] Work Phone: [facility] 06-17-2024 11:27-0400 Systolic blood pressure 120 mm[Hg] Judith Suppan [employer] Work Phone: [facility] 05-18-2024 14:22-0400 Body mass index (BMI) [Ratio] 41.63 kg/m2 Judith Suppan [employer] Work Phone: [facility] 05-18-2024 14:22-0400 Body weight 106.59 kg Judith Suppan [employer] Work Phone: [facility] 05-18-2024 14:22-0400 Diastolic blood pressure 78 mm[Hg] Judith Suppan [employer] Work Phone: [facility] 05-18-2024 14:22-0400 Heart rate 60 /min Judith Suppan [employer] Work Phone: [facility] 05-18-2024 14:22-0400 SaO2% (BldA) [Mass fraction] 96 % Judith Suppan [employer] Work Phone: [facility] 05-18-2024 14:22-0400 Systolic blood pressure 129 mm[Hg] Judith Suppan [employer] Work Phone: [facility] 05-11-2024 13:44-0400 Body mass index (BMI) [Ratio] 41.12 kg/m2 Enid Brigotti [employer] Work Phone: [facility] 05-11-2024 13:44-0400 Body temperature 97 [degF] Enid Brigotti [employer] Work Phone: [facility] 05-11-2024 13:44-0400 Body weight 105.3 kg Enid Brigotti [employer] Work Phone: [facility] 05-11-2024 13:44-0400 Diastolic blood pressure 78 mm[Hg] Enid Brigotti [employer] Work Phone: [facility] 05-11-2024 13:44-0400 Heart rate 63 /min Enid Brigotti [employer] Work Phone: [facility] 05-11-2024 13:44-0400 Respiratory rate 18 /min Enid Brigotti [employer] Work Phone: [facility] 05-11-2024 13:44-0400 SaO2% (BldA) [Mass fraction] 99 % Enid Brigotti [employer] Work Phone: [facility] 05-11-2024 13:44-0400 Systolic blood pressure 122 mm[Hg] Enid Brigotti [employer] Work Phone: [facility] 05-03-2024 10:52-0400 Diastolic blood pressure 38 mm[Hg] Judith Suppan [employer] Work Phone: [facility] 05-03-2024 10:52-0400 Systolic blood pressure 70 mm[Hg] Judith Suppan [employer] Work Phone: [facility] 05-03-2024 10:26-0400 Body mass index (BMI) [Ratio] 40.39 kg/m2 Judith Suppan [employer] Work Phone: [facility] 05-03-2024 10:26-0400 Body weight 103.42 kg Judith Suppan [employer] Work Phone: [facility] 05-03-2024 10:26-0400 Heart rate 67 /min Judith Suppan [employer] Work Phone: [facility] 05-03-2024 10:26-0400 SaO2% (BldA) [Mass fraction] 96 % Judith Suppan [employer] Work Phone: [facility] 04-29-2024 12:50-0400 Diastolic blood pressure 63 mm[Hg] Zeny Crowder MD Work Phone: [facility] 04-29-2024 12:50-0400 Respiratory rate 16 /min Zeny Crowder MD Work Phone: [facility] 04-29-2024 12:50-0400 Systolic blood pressure 132 mm[Hg] Zeny Crowder MD Work Phone: [facility] 04-29-2024 12:05-0400 Heart rate 64 /min Zeny Crowder MD Work Phone: [facility] 04-29-2024 12:05-0400 SaO2% (BldA) [Mass fraction] 96 % Zeny Crowder MD Work Phone: [facility] 04-29-2024 11:18-0400 Body mass index (BMI) [Ratio] 41.43 kg/m2 Zeny Crowder MD Work Phone: [facility] 04-29-2024 11:18-0400 Body temperature 96.6 [degF] Zeny Crowder MD Work Phone: [facility] 04-29-2024 11:18-0400 Body weight 106.1 kg Zeny Crowder MD Work Phone: [facility] 04-08-2024 12:49-0400 Body mass index (BMI) [Ratio] 41.45 kg/m2 Judith Suppan [employer] Work Phone: [facility] 04-08-2024 12:49-0400 Body temperature 97.3 [degF] Judith Suppan [employer] Work Phone: [facility] 04-08-2024 12:49-0400 Body weight 106.14 kg Judith Suppan [employer] Work Phone: [facility] 04-08-2024 12:49-0400 Diastolic blood pressure 80 mm[Hg] Judith Suppan [employer] Work Phone: [facility] 04-08-2024 12:49-0400 Heart rate 62 /min Judith Suppan [employer] Work Phone: [facility] 04-08-2024 12:49-0400 SaO2% (BldA) [Mass fraction] 97 % Judith Suppan [employer] Work Phone: [facility] 04-08-2024 12:49-0400 Systolic blood pressure 130 mm[Hg] Judith Suppan [employer] Work Phone: [facility] 04-02-2024 14:13-0400 Body height 160 cm Sylvia Lizama MD Work Phone: [facility] 04-02-2024 14:13-0400 Body mass index (BMI) [Ratio] 41.45 kg/m2 Sylvia Lizama MD Work Phone: [facility] 04-02-2024 14:13-0400 Body weight 106.14 kg Sylvia Lizama MD Work Phone: [facility] 04-02-2024 14:13-0400 Diastolic blood pressure 66 mm[Hg] Sylvia Lizama MD Work Phone: [facility] 04-02-2024 14:13-0400 Heart rate 76 /min Sylvia Lizama MD Work Phone: [facility] 04-02-2024 14:13-0400 SaO2% (BldA) [Mass fraction] 96 % Sylvia Lizama MD Work Phone: [facility] 04-02-2024 14:130400 Systolic blood pressure 152 mm[Hg] Sylvia Lizama MD Work Phone: [facility] 03-29-2024 14:090400 Body height 160 cm Zeny Crowder MD Work Phone: [facility] 03-29-2024 14:090400 Body mass index (BMI) [Ratio] 41.52 kg/m2 Zeny Crowder MD Work Phone: [facility] 03-29-2024 14:090400 Body temperature 97.9 [degF] Zeny Crowder MD Work Phone: [facility] 03-29-2024 14:09-0400 Body weight 106.32 kg Zeny Crowder MD Work Phone: [facility] 03-29-2024 14:09-0400 Diastolic blood pressure 84 mm[Hg] Zeny Crowder MD Work Phone: [facility] 03-29-2024 14:09-0400 Heart rate 78 /min Zeny Crowder MD Work Phone: [facility] 03-29-2024 14:09-0400 SaO2% (BldA) [Mass fraction] 94 % Zeny Crowder MD Work Phone: [facility] 03-29-2024 14:09-0400 Systolic blood pressure 136 mm[Hg] Zeny Crowder MD Work Phone: [facility] 03-15-2024 10:07-0400 Diastolic blood pressure 78 mm[Hg] Gini Ayala [employer]ER.TIER IN Work Phone: [facility] 03-15-2024 10:07-0400 Heart rate 66 /min Gini Ayala APRN.TIER IN Work Phone: [facility] 03-15-2024 10:07-0400 Respiratory rate 16 /min Gini Ayala [employer]CIAL [employer]ER.TIER IN Work Phone: [facility] 03-15-2024 10:07-0400 SaO2% (BldA) [Mass fraction] 96 % Gini Knightagen [employer]CIAL [employer]STATE LENDER.TIER IN Work Phone: [facility] 03-15-2024 10:07-0400 Systolic blood pressure 108 mm[Hg] Gini Knightagen COMMERCIAL [employer]STATE L[employer]ER.TIER IN Work Phone: [facility] 03-04-2024 11:26-0400 Body mass index (BMI) [Ratio] 41.27 kg/m2 Judith Suppan COMM[employer]CIAL REAL [employer]STATE LENDER.GRADUATE RESEARCH ASSISTANT Work Phone: [facility] 03-04-2024 11:26-0400 Body temperature 98.01 [degF] Judith Suppan COMMERCIAL [employer]STATE LENDER.GRADUATE RESEARCH ASSISTANT Work Phone: [facility] 03-04-2024 11:26-0400 Body weight 105.69 kg Judith Suppan COMMERCIAL [employer] ESTATE LENDER.GRADUATE RESEARCH ASSISTANT Work Phone: [facility] 03-04-2024 11:26-0400 Diastolic blood pressure 66 mm[Hg] Judith Suppan COMMERCIAL REAL ESTATE LENDER.GRADUATE RESEARCH ASSISTANT Work Phone: [facility] 03-04-2024 11:26-0400 Heart rate 66 /min Judith Suppan COMMERCIAL REAL ESTATE LENDER.GRADUATE RESEARCH ASSISTANT Work Phone: [facility] 03-04-2024 11:26-0400 Respiratory rate 18 /min Judith Suppan COMMERCIAL REAL ESTATE LENDER.GRADUATE RESEARCH ASSISTANT Work Phone: [facility] 03-04-2024 11:26-0400 SaO2% (BldA) [Mass fraction] 97 % Judith Suppan COMMERCIAL REAL ESTATE LENDER.GRADUATE RESEARCH ASSISTANT Work Phone: [facility] 03-04-2024 11:26-0400 Systolic blood pressure 142 mm[Hg] Judith Suppan COMMERCIAL REAL ESTATE LENDER.GRADUATE RESEARCH ASSISTANT Work Phone: [facility] 02-19-2024 13:17-0400 Body mass index (BMI) [Ratio] 41.45 kg/m2 Shaila Henry COMMERCIAL [employer]STATE L[employer]ER.TIER IN Work Phone: [facility] 02-19-2024 13:17-0400 Body weight 106.14 kg Shaila Sergey COMMERCIAL [employer]STATE L[employer]ER.TIER IN Work Phone: [facility] 02-19-2024 13:17-0400 Diastolic blood pressure 82 mm[Hg] Shaila Henry COMMERCIAL [employer]STATE LENDER.TIER IN Work Phone: [facility] 02-19-2024 13:17-0400 Systolic blood pressure 140 mm[Hg] Shaila Sergey COMMERCIAL [employer]STATE LENDER.TIER IN Work Phone: [facility] 02-05-2024 11:05-0400 Body mass index (BMI) [Ratio] 42.16 kg/m2 Judith Suppan COMMERCIAL [employer]STATE LENDER.GRADUATE RESEARCH ASSISTANT Work Phone: [facility] 02-05-2024 11:05-0400 Body weight 107.96 kg Judith Suppan COMMERCIAL REAL ESTATE LENDER.GRADUATE RESEARCH ASSISTANT Work Phone: [facility] 02-05-2024 11:05-0400 Diastolic blood pressure 62 mm[Hg] Judith Suppan COMMERCIAL REAL ESTATE LENDER.GRADUATE RESEARCH ASSISTANT Work Phone: [facility] 02-05-2024 11:05-0400 Heart rate 59 /min Judith Suppan COMMERCIAL REAL ESTATE LENDER.GRADUATE RESEARCH ASSISTANT Work Phone: [facility] 02-05-2024 11:05-0400 Respiratory rate 14 /min Judith Suppan COMMERCIAL REAL ESTATE LENDER.GRADUATE RESEARCH ASSISTANT Work Phone: [facility] 02-05-2024 11:05-0400 SaO2% (BldA) [Mass fraction] 97 % Judith Suppan COMMERCIAL REAL ESTATE LENDER.GRADUATE RESEARCH ASSISTANT Work Phone: [facility] 02-05-2024 11:05-0400 Systolic blood pressure 134 mm[Hg] Judith Suppan COMMERCIAL REAL ESTATE LENDER.GRADUATE RESEARCH ASSISTANT Work Phone: [facility] 01-07-2024 13:38-0400 Body height 160 cm Sylvia Lizama MD Work Phone: [facility] 01-07-2024 13:38-0400 Body weight 107.5 kg Sylvia Lizama MD Work Phone: [facility] 01-07-2024 13:38-0400 Diastolic blood pressure 58 mm[Hg] Sylvia Lizama MD Work Phone: [facility] 01-07-2024 13:38-0400 Heart rate 69 /min Sylvia Lizama MD Work Phone: [facility] 01-07-2024 13:38-0400 SaO2% (BldA) [Mass fraction] 98 % Sylvia Lizama MD Work Phone: [facility] 01-07-2024 13:38-0400 Systolic blood pressure 124 mm[Hg] Sylvia Lizama MD Work Phone: [facility] 2023 14:31-0500 Body temperature 97.81 [degF] Krislyn Aberegg PA Work Phone: [facility] 2023 14:31-0500 Body weight 106.78 kg Krislyn Aberegg PA Work Phone: [facility] 2023 14:31-0500 Diastolic blood pressure 74 mm[Hg] Krislyn Aberegg PA Work Phone: [facility] 2023 14:31-0500 Heart rate 79 /min Krislyn Aberegg PA Work Phone: [facility] 2023 14:31-0500 Respiratory rate 18 /min Krislyn Aberegg PA Work Phone: [facility] 2023 14:31-0500 SaO2% (BldA) [Mass fraction] 96 % Krislyn Aberegg PA Work Phone: [facility] 2023 14:31-0500 Systolic blood pressure 142 mm[Hg] Krislyn Aberegg PA Work Phone: [facility] 10-27-2023 09:37-0500 Body temperature 97.59 [degF] Sathya Rajan MD Work Phone: [facility] 10-27-2023 09:37-0500 Body weight 106.69 kg Sathya Rajan MD Work Phone: [facility] 10-27-2023 09:37-0500 Diastolic blood pressure 80 mm[Hg] Sathya Rajan MD Work Phone: [facility] 10-27-2023 09:37-0500 Heart rate 74 /min Sathya Rajan MD Work Phone: [facility] 10-27-2023 09:37-0500 Respiratory rate 22 /min Sathya Rajan MD Work Phone: [facility] 10-27-2023 09:37-0500 SaO2% (BldA) [Mass fraction] 97 % Sathya Rajan MD Work Phone: [facility] 10-27-2023 09:37-0500 Systolic blood pressure 157 mm[Hg] Sathya Rajan MD Work Phone: [facility] 07-08-2023 15:34-0400 Body weight 106.14 kg Sylvia Lizama MD Work Phone: [facility] 07-08-2023 15:34-0400 Diastolic blood pressure 72 mm[Hg] Sylvia Lizama MD Work Phone: [facility] 07-08-2023 15:34-0400 Heart rate 73 /min Sylvia Lizama MD Work Phone: [facility] 07-08-2023 15:34-0400 Respiratory rate 16 /min Sylvia Lizama MD Work Phone: [facility] 07-08-2023 15:34-0400 SaO2% (BldA) [Mass fraction] 96 % Sylvia Lizama MD Work Phone: [facility] 07-08-2023 15:34-0400 Systolic blood pressure 136 mm[Hg] Sylvia Lizama MD Work Phone: [facility] 06-13-2023 10:01-0400 Body temperature 98.01 [degF] Prince Fang MD Work Phone: [facility] 06-13-2023 10:01-0400 Body weight 106.37 kg Prince Fang MD Work Phone: [facility] 06-13-2023 10:01-0400 Diastolic blood pressure 66 mm[Hg] Prince Fang MD Work Phone: [facility] 06-13-2023 10:01-0400 Heart rate 72 /min Prince Fang MD Work Phone: [facility] 06-13-2023 10:01-0400 SaO2% (BldA) [Mass fraction] 97 % Prince Fang MD Work Phone: [facility] 06-13-2023 10:01-0400 Systolic blood pressure 110 mm[Hg] Prince Fang MD Work Phone: [facility] 06-13-2023 09:47-0400 Body weight 106.37 kg Lab/Port Wstr Work Phone: [facility] 04-17-2023 15:13-0400 Body weight 104.33 kg NA Lemus PA-C Work Phone: [facility] 04-17-2023 15:13-0400 Diastolic blood pressure 84 mm[Hg] NA Lemus PA-C Work Phone: [facility] 04-17-2023 15:13-0400 Heart rate 69 /min NA Lemus PA-C Work Phone: [facility] 04-17-2023 15:13-0400 Respiratory rate 20 /min NA Lemus PA-C Work Phone: [facility] 04-17-2023 15:13-0400 SaO2% (BldA) [Mass fraction] 97 % NA Lemus PA-C Work Phone: [facility] 04-17-2023 15:13-0400 Systolic blood pressure 132 mm[Hg] NA Lemus PA-C Work Phone: [facility] 04-03-2023 09:44-0400 Body weight 102.97 kg Sylvia Lizama MD Work Phone: [facility] 04-03-2023 09:44-0400 Diastolic blood pressure 64 mm[Hg] Sylvia Lizama MD Work Phone: [facility] 04-03-2023 09:44-0400 Heart rate 70 /min Sylvia Lizama MD Work Phone: [facility] 04-03-2023 09:44-0400 SaO2% (BldA) [Mass fraction] 98 % Sylvia Lizama MD Work Phone: [facility] 04-03-2023 09:44-0400 Systolic blood pressure 126 mm[Hg] Sylvia Lizama MD Work Phone: [facility] 03-24-2023 11:09-0400 Body weight 103.24 kg Elissabeena Acevedohof COMMERCIAL [employer]STATE LENDER.TIER IN Work Phone: [facility] 03-24-2023 11:09-0400 Diastolic blood pressure 64 mm[Hg] Elissa Tannhof COMMERCIAL REAL [employer]STATE LENDER.TIER IN Work Phone: [facility] 03-24-2023 11:09-0400 Heart rate 78 /min Elissa Tannhof COMMERCIAL [employer] ESTATE LENDER.TIER IN Work Phone: [facility] 03-24-2023 11:09-0400 Respiratory rate 18 /min Elissa Tannhof COMMERCIAL REAL ESTATE LENDER.TIER IN Work Phone: [facility] 03-24-2023 11:09-0400 SaO2% (BldA) [Mass fraction] 97 % Elissa Tannhof COMMERCIAL REAL ESTATE LENDER.TIER IN Work Phone: [facility] 03-24-2023 11:09-0400 Systolic blood pressure 122 mm[Hg] Elissa Tannhof COMMERCIAL REAL ESTATE LENDER.TIER IN Work Phone: [facility] 02-24-2023 13:44-0400 Body temperature 97.5 [degF] Treatment Wstr Work Phone: [facility] 02-24-2023 13:44-0400 Body weight 104.55 kg Treatment Wstr Work Phone: [facility] 02-24-2023 13:44-0400 Diastolic blood pressure 80 mm[Hg] Treatment Wstr Work Phone: [facility] 02-24-2023 13:44-0400 Heart rate 65 /min Treatment Wstr Work Phone: [facility] 02-24-2023 13:44-0400 Systolic blood pressure 154 mm[Hg] Treatment Wstr Work Phone: [facility] 02-21-2023 10:39-0400 Diastolic blood pressure 67 mm[Hg] Franklyn Juares MD Work Phone: [facility] 02-21-2023 10:39-0400 Heart rate 67 /min Franklyn Juares MD Work Phone: [facility] 02-21-2023 10:39-0400 Systolic blood pressure 140 mm[Hg] Franklyn Juares MD Work Phone: [facility] 12-30-2022 14:35-0400 Diastolic blood pressure 66 mm[Hg] Treatment Wstr Work Phone: [facility] 12-30-2022 14:35-0400 Heart rate 69 /min Treatment Wstr Work Phone: [facility] 12-30-2022 14:35-0400 Systolic blood pressure 138 mm[Hg] Treatment Wstr Work Phone: [facility] 12-30-2022 14:11-0400 Body temperature 97.59 [degF] Treatment Wstr Work Phone: [facility] 12-30-2022 14:11-0400 Body weight 101.83 kg Treatment Wstr Work Phone: [facility] 12-30-2022 14:11-0400 SaO2% (BldA) [Mass fraction] 100 % Treatment Wstr Work Phone: [facility] 12-25-2022 10:52-0400 Diastolic blood pressure 80 mm[Hg] Gini Ayala APRN.CNP Work Phone: [facility] 12-25-2022 10:52-0400 Heart rate 78 /min Gini Ayala COMMERCIAL [employer]STATE LENDER.TIER IN Work Phone: [facility] 12-25-2022 10:52-0400 Respiratory rate 18 /min Gini Knightagen COMMERCIAL REAL ESTATE LENDER.TIER IN Work Phone: [facility] 12-25-2022 10:52-0400 SaO2% (BldA) [Mass fraction] 98 % Gini Haagen COMMERCIAL REAL ESTATE LENDER.TIER IN Work Phone: [facility] 12-25-2022 10:52-0400 Systolic blood pressure 132 mm[Hg] Gini Ayala COMMERCIAL [employer]STATE LENDER.TIER IN Work Phone: [facility] 12-17-2022 14:07-0400 Body height 156 cm Anca Almonte MD Work Phone: [facility] 12-17-2022 14:07-0400 Body temperature 97.7 [degF] Anca Almonte MD Work Phone: [facility] 12-17-2022 14:07-0400 Body weight 104.55 kg Anca Almonte MD Work Phone: [facility] 12-17-2022 14:07-0400 Diastolic blood pressure 66 mm[Hg] Anca Almonte MD Work Phone: [facility] 12-17-2022 14:07-0400 Heart rate 73 /min Anca Almonte MD Work Phone: [facility] 12-17-2022 14:07-0400 SaO2% (BldA) [Mass fraction] 98 % Anca Almonte MD Work Phone: [facility] 12-17-2022 14:07-0400 Systolic blood pressure 128 mm[Hg] Anca Almonte MD Work Phone: [facility] 12-09-2022 15:17-0400 Body weight 103.42 kg Sylvia Lizama MD Work Phone: [facility] 12-09-2022 15:17-0400 Diastolic blood pressure 82 mm[Hg] Sylvia Lizama MD Work Phone: [facility] 12-09-2022 15:17-0400 Heart rate 80 /min Sylvia Lizama MD Work Phone: [facility] 12-09-2022 15:17-0400 SaO2% (BldA) [Mass fraction] 99 % Sylvia Lizama MD Work Phone: [facility] 12-09-2022 15:17-0400 Systolic blood pressure 182 mm[Hg] Sylvia Lizama MD Work Phone: [facility] 11-27-2022 08:48-0500 Body height 157.5 cm Sylvia Lizama MD Work Phone: [facility] 11-27-2022 08:48-0500 Body weight 101.15 kg Sylvia Lizama MD Work Phone: [facility] 11-27-2022 08:48-0500 Diastolic blood pressure 70 mm[Hg] Sylvia Lizama MD Work Phone: [facility] 11-27-2022 08:48-0500 Heart rate 72 /min Sylvia Lizama MD Work Phone: [facility] 11-27-2022 08:48-0500 SaO2% (BldA) [Mass fraction] 99 % Sylvia Lizama MD Work Phone: [facility] 11-27-2022 08:48-0500 Systolic blood pressure 138 mm[Hg] Sylvia Lizama MD Work Phone: [facility] 11-25-2022 11:18-0500 Body temperature 97.59 [degF] Anca Almonte MD Work Phone: [facility] 11-25-2022 11:18-0500 Body weight 100.7 kg Lab/Port Wstr Work Phone: [facility] 11-25-2022 11:18-0500 Diastolic blood pressure 60 mm[Hg] Anca Almonte MD Work Phone: [facility] 11-25-2022 11:18-0500 Heart rate 74 /min Anca Almonte MD Work Phone: [facility] 11-25-2022 11:18-0500 Systolic blood pressure 123 mm[Hg] Anca Almonte MD Work Phone: [facility] 11-07-2022 13:20-0500 Body weight 101.15 kg NA Lemus PA-C Work Phone: [facility] 11-07-2022 13:20-0500 Diastolic blood pressure 88 mm[Hg] NA Lemus PA-C Work Phone: [facility] 11-07-2022 13:20-0500 Heart rate 82 /min NA Lemus PA-C Work Phone: [facility] 11-07-2022 13:20-0500 Respiratory rate 20 /min NA Lemus PA-C Work Phone: [facility] 11-07-2022 13:20-0500 SaO2% (BldA) [Mass fraction] 99 % NA Lemus PA-C Work Phone: [facility] 11-07-2022 13:20-0500 Systolic blood pressure 166 mm[Hg] NA Lemus PA-C Work Phone: [facility] 10-30-2022 10:59-0500 Body temperature 97.59 [degF] Treatment Wstr Work Phone: [facility] 10-30-2022 10:59-0500 Diastolic blood pressure 69 mm[Hg] Treatment Wstr Work Phone: [facility] 10-30-2022 10:59-0500 Heart rate 65 /min Treatment Wstr Work Phone: [facility] 10-30-2022 10:59-0500 SaO2% (BldA) [Mass fraction] 99 % Treatment Wstr Work Phone: [facility] 10-30-2022 10:59-0500 Systolic blood pressure 169 mm[Hg] Treatment Wstr Work Phone: [facility] 10-28-2022 12:09-0500 Diastolic blood pressure 84 mm[Hg] Brendon Coppola APRN.CNP Work Phone: [facility] 10-28-2022 12:09-0500 Systolic blood pressure 168 mm[Hg] Brendon Coppola COMMERCIAL [employer]STATE L[employer]ER.TIER IN Work Phone: [facility] 10-28-2022 11:03-0500 Body temperature 97.9 [degF] Brendon Coppola COMMERCIAL [employer] ESTATE LENDER.TIER IN Work Phone: [facility] 10-28-2022 11:03-0500 Body weight 101.15 kg Brendon Coppola COMMERCIAL REAL ESTATE LENDER.TIER IN Work Phone: [facility] 10-28-2022 11:03-0500 Heart rate 73 /min Brendon Coppola COMMERCIAL [employer] ESTATE LENDER.TIER IN Work Phone: [facility] 10-03-2022 14:14-0500 Body temperature 97.7 [degF] Injection Wstr Work Phone: [facility] 10-03-2022 14:14-0500 Body weight 102.06 kg Injection Wstr Work Phone: [facility] 10-03-2022 14:14-0500 Diastolic blood pressure 84 mm[Hg] Injection Wstr Work Phone: [facility] 10-03-2022 14:14-0500 Heart rate 60 /min Injection Wstr Work Phone: [facility] 10-03-2022 14:14-0500 Systolic blood pressure 158 mm[Hg] Injection Wstr Work Phone: [facility] 10-02-2022 11:20-0500 Body temperature 98.4 [degF] Treatment Wstr Work Phone: [facility] 10-02-2022 11:20-0500 Diastolic blood pressure 81 mm[Hg] Treatment Wstr Work Phone: [facility] 10-02-2022 11:20-0500 Heart rate 67 /min Treatment Wstr Work Phone: [facility] 10-02-2022 11:20-0500 SaO2% (BldA) [Mass fraction] 98 % Treatment Wstr Work Phone: [facility] 10-02-2022 11:20-0500 Systolic blood pressure 169 mm[Hg] Treatment Wstr Work Phone: [facility] 10-02-2022 10:00-0500 Body weight 102.06 kg Treatment Wstr Work Phone: [facility] 10-02-2022 10:00-0500 Respiratory rate 18 /min Treatment Wstr Work Phone: [facility] 10-01-2022 09:00-0500 Diastolic blood pressure 76 mm[Hg] Treatment Wstr Work Phone: [facility] 10-01-2022 09:00-0500 Heart rate 59 /min Treatment Wstr Work Phone: [facility] 10-01-2022 09:00-0500 Systolic blood pressure 194 mm[Hg] Treatment Wstr Work Phone: [facility] 10-01-2022 08:15-0500 Body temperature 97.59 [degF] Treatment Wstr Work Phone: [facility] 09-03-2022 13:00-0500 Body temperature 97.59 [degF] Treatment Wstr Work Phone: [facility] 09-03-2022 13:00-0500 Diastolic blood pressure 81 mm[Hg] Treatment Wstr Work Phone: [facility] 09-03-2022 13:00-0500 Heart rate 59 /min Treatment Wstr Work Phone: [facility] 09-03-2022 13:00-0500 Respiratory rate 18 /min Treatment Wstr Work Phone: [facility] 09-03-2022 13:00-0500 SaO2% (BldA) [Mass fraction] 99 % Treatment Wstr Work Phone: [facility] 09-03-2022 13:00-0500 Systolic blood pressure 158 mm[Hg] Treatment Wstr Work Phone: [facility] 09-02-2022 12:47-0500 Diastolic blood pressure 94 mm[Hg] Treatment Wstr Work Phone: [facility] 09-02-2022 12:47-0500 Heart rate 71 /min Treatment Wstr Work Phone: [facility] 09-02-2022 12:47-0500 Systolic blood pressure 185 mm[Hg] Treatment Wstr Work Phone: [facility] 09-02-2022 08:11-0500 Body temperature 98.49 [degF] Treatment Wstr Work Phone: [facility] 09-02-2022 08:11-0500 SaO2% (BldA) [Mass fraction] 97 % Treatment Wstr Work Phone: [facility] 08-30-2022 13:29-0500 Body temperature 97.59 [degF] Melba Escudero MD Work Phone: [facility] 08-30-2022 13:29-0500 Body weight 99.79 kg Melba Escudero MD Work Phone: [facility] 08-30-2022 13:29-0500 Diastolic blood pressure 74 mm[Hg] Melba Escudero MD Work Phone: [facility] 08-30-2022 13:29-0500 Heart rate 65 /min Melba Escudero MD Work Phone: [facility] 08-30-2022 13:29-0500 Systolic blood pressure 145 mm[Hg] Melba Escudero MD Work Phone: [facility] 08-04-2022 15:00-0500 Body temperature 98.6 [degF] Dr. Sylvia Lizama Work Phone: [facility] Work Phone: 08-04-2022 15:00-0500 Diastolic blood pressure 70 mm[Hg] Dr. Sylvia Lizama Work Phone: [facility] Work Phone: 08-04-2022 15:00-0500 Heart rate 70 /min Dr. Sylvia Lizama Work Phone: [facility] Work Phone: 08-04-2022 15:00-0500 Respiratory rate 18 /min Dr. Sylvia Lizama Work Phone: [facility] Work Phone: 08-04-2022 15:00-0500 SaO2% (BldA) [Mass fraction] 95 % Dr. Sylvia Lizama Work Phone: [facility] Work Phone: 08-04-2022 15:00-0500 Systolic blood pressure 154 mm[Hg] Dr. Sylvia Lizama Work Phone: [facility] Work Phone: 08-02-2022 21:12-0500 Inhaled oxygen flow rate 1.5 L/min Dr. Sylvia Lizama Work Phone: [facility] Work Phone: 08-02-2022 05:25-0500 Body height 157.[address] Sylvia Lizama Work Phone: [facility] Work Phone: 08-02-2022 05:25-0500 Body mass index (BMI) [Ratio] 38.9 kg/m2 Dr. Sylvia Lizama Work Phone: [facility] Work Phone: 08-02-2022 05:25-0500 Body weight 96.[address] Sylvia Lizama Work Phone: [facility] Work Phone: 07-23-2022 10:06-0400 Body temperature 98.6 [degF] Melba Escudero MD Work Phone: [facility] 07-23-2022 10:06-0400 Body weight 98.2 kg Melba Escudero MD Work Phone: [facility] 07-23-2022 10:06-0400 Diastolic blood pressure 61 mm[Hg] Melba Escudero MD Work Phone: [facility] 07-23-2022 10:06-0400 Heart rate 79 /min Melba Escudero MD Work Phone: [facility] 07-23-2022 10:06-0400 SaO2% (BldA) [Mass fraction] 96 % Melba Escudero MD Work Phone: [facility] 07-23-2022 10:06-0400 Systolic blood pressure 110 mm[Hg] Melba Escudero MD Work Phone: [facility] 06-28-2022 09:00-0400 Body temperature 98.1 [degF] Treatment Wstr Work Phone: [facility] 06-28-2022 09:00-0400 Diastolic blood pressure 59 mm[Hg] Treatment Wstr Work Phone: [facility] 06-28-2022 09:00-0400 Heart rate 69 /min Treatment Wstr Work Phone: [facility] 06-28-2022 09:00-0400 Systolic blood pressure 153 mm[Hg] Treatment Wstr Work Phone: [facility] 06-19-2022 09:52-0400 Body temperature 98.01 [degF] César Masci DO Work Phone: [facility] 06-19-2022 09:52-0400 Body weight 100.47 kg César Masci DO Work Phone: [facility] 06-19-2022 09:52-0400 Diastolic blood pressure 50 mm[Hg] César Masci DO Work Phone: [facility] 06-19-2022 09:52-0400 Heart rate 65 /min César Masci DO Work Phone: [facility] 06-19-2022 09:52-0400 Systolic blood pressure 115 mm[Hg] César Masci DO Work Phone: [facility] 06-10-2022 15:17-0400 Body height 157.5 cm Tima Peterson PA-C Work Phone: [facility] 06-10-2022 15:17-0400 Body temperature 97.39 [degF] Tima Peterson PA-C Work Phone: [facility] 06-10-2022 15:17-0400 Body weight 100.7 kg Tima [place] PA-C Work Phone: [facility] 06-10-2022 15:17-0400 Diastolic blood pressure 62 mm[Hg] Tima [place] PA-C Work Phone: [facility] 06-10-2022 15:17-0400 Heart rate 86 /min Tima Taylor Ridge PA-C Work Phone: [facility] 06-10-2022 15:17-0400 SaO2% (BldA) [Mass fraction] 94 % Tima Taylor Ridge PA-C Work Phone: [facility] 06-10-2022 15:17-0400 Systolic blood pressure 142 mm[Hg] Tima Taylor Ridge PA-C Work Phone: [facility] 05-31-2022 08:45-0400 Body height 157.5 cm Pacc 1 Work Phone: [facility] 05-31-2022 08:45-0400 Body temperature 97.2 [degF] Pacc 1 Work Phone: [facility] 05-31-2022 08:45-0400 Body weight 100.25 kg Pacc 1 Work Phone: [facility] 05-31-2022 08:45-0400 Diastolic blood pressure 58 mm[Hg] Pacc 1 Work Phone: [facility] 05-31-2022 08:45-0400 Heart rate 72 /min Pacc 1 Work Phone: [facility] 05-31-2022 08:45-0400 Respiratory rate 16 /min Pacc 1 Work Phone: [facility] 05-31-2022 08:45-0400 SaO2% (BldA) [Mass fraction] 97 % Pacc 1 Work Phone: [facility] 05-31-2022 08:45-0400 Systolic blood pressure 118 mm[Hg] Pacc 1 Work Phone: [facility] 05-28-2022 14:50-0400 Body height 157.5 cm Zeny Crowder MD Work Phone: [facility] 05-28-2022 14:50-0400 Body temperature 97.7 [degF] Zeny Crowder MD Work Phone: [facility] 05-28-2022 14:50-0400 Body weight 101.06 kg Zeny Crowder MD Work Phone: [facility] 05-28-2022 14:50-0400 Diastolic blood pressure 72 mm[Hg] Zeny Crowder MD Work Phone: [facility] 05-28-2022 14:50-0400 Heart rate 86 /min Zeny Crowder MD Work Phone: [facility] 05-28-2022 14:50-0400 SaO2% (BldA) [Mass fraction] 96 % Zeny Crowder MD Work Phone: [facility] 05-28-2022 14:50-0400 Systolic blood pressure 148 mm[Hg] Zeny Crowder MD Work Phone: [facility] 05-13-2022 11:36-0400 Body temperature 98.1 [degF] Helen Praisler-Wood [employer]CIAL [employer]STATE [employer].TIER IN Work Phone: [facility] 05-13-2022 11:36-0400 Body weight 100.15 kg Helen Praisler-Wood [employer]CIAL [employer]STATE [employer]ER.TIER IN Work Phone: [facility] 05-13-2022 11:36-0400 Diastolic blood pressure 82 mm[Hg] Helen Praisler-Wood COMMERCIAL [employer] ESTATE L[employer]ER.TIER IN Work Phone: [facility] 05-13-2022 11:36-0400 Heart rate 75 /min Helen Praisler-Wood COMM[employer]CIAL [employer]STATE L[employer]ER.TIER IN Work Phone: [facility] 05-13-2022 11:36-0400 Respiratory rate 22 /min Helen Praisler-Wood COMMERCIAL REAL ESTATE L[employer]ER.TIER IN Work Phone: [facility] 05-13-2022 11:36-0400 SaO2% (BldA) [Mass fraction] 97 % Helen Bonilla [employer]STATE [employer]ER.TIER IN Work Phone: [facility] 05-13-2022 11:36-0400 Systolic blood pressure 130 mm[Hg] Helen Bonilla [employer]ER[employer]STATE [employer]ER.TIER IN Work Phone: [facility] 05-07-2022 09:00-0400 Body height 157.5 cm Zeny Crowder MD Work Phone: [facility] 05-07-2022 09:00-0400 Body temperature 97.3 [degF] Zeny Crowder MD Work Phone: [facility] 05-07-2022 09:00-0400 Body weight 100.7 kg Zeny Crowder MD Work Phone: [facility] 05-07-2022 09:00-0400 Diastolic blood pressure 74 mm[Hg] Zeny Crowder MD Work Phone: [facility] 05-07-2022 09:00-0400 Heart rate 92 /min Zeny Crowder MD Work Phone: [facility] 05-07-2022 09:00-0400 SaO2% (BldA) [Mass fraction] 99 % Zeny Crowder MD Work Phone: [facility] 05-07-2022 09:00-0400 Systolic blood pressure 128 mm[Hg] Zeny Crowder MD Work Phone: [facility] 04-22-2022 15:43-0400 Diastolic blood pressure 90 mm[Hg] Sylvia Lizama MD Work Phone: [facility] 04-22-2022 15:43-0400 Systolic blood pressure 144 mm[Hg] Sylvia Lizama MD Work Phone: [facility] 04-22-2022 15:23-0400 Body height 157.5 cm Sylvia Lizama MD Work Phone: [facility] 04-22-2022 15:23-0400 Body weight 101.61 kg Sylvia Lizama MD Work Phone: [facility] 04-22-2022 15:23-0400 Heart rate 67 /min Sylvia Lizama MD Work Phone: [facility] 04-22-2022 15:23-0400 SaO2% (BldA) [Mass fraction] 98 % Sylvia Lizama MD Work Phone: [facility] 01-29-2022 16:24-0400 Body temperature 98.91 [degF] Melba Escudero MD Work Phone: [facility] 01-29-2022 16:24-0400 Body weight 98.66 kg Melba Escudero MD Work Phone: [facility] 01-29-2022 16:24-0400 Diastolic blood pressure 52 mm[Hg] Melba Escudero MD Work Phone: [facility] 01-29-2022 16:24-0400 Heart rate 71 /min Melba Escudero MD Work Phone: [facility] 01-29-2022 16:24-0400 SaO2% (BldA) [Mass fraction] 97 % Melba Escudero MD Work Phone: [facility] 01-29-2022 16:24-0400 Systolic blood pressure 122 mm[Hg] Melba Escudero MD Work Phone: [facility] 09-13-2020 14:30-0500 BP Diastolic 60 mm[Hg] [facility] [place] 09-13-2020 14:30-0500 BP Systolic 132 mm[Hg] [facility] [place] 09-13-2020 14:30-0500 Pulse (Heart Rate) 85 /min [facility] 09-13-2020 14:30-0500 Pulse Oximetry 96 % [facility] [place] 09-13-2020 14:30-0500 Respiratory Rate 18 /min [facility], [place] 09-13-2020 11:48-0500 BMI (Body Mass Index) 42.98 kg/m2 [place], [place] 09-13-2020 11:48-0500 Body Temperature 98.71 [degF] Pavel Watts [facility], [place] 09-13-2020 11:48-0500 Body weight 106.59 [facility] [place] 09-13-2020 11:48-0500 Height 157.5 cm [facility] [place] 09-06-2020 20:25-0500 Body Temperature 98.49 [degF] [facility], [place] 09-06-2020 20:25-0500 BP Diastolic 70 mm[Hg] [facility] [place] 09-06-2020 20:25-0500 BP Systolic 133 mm[Hg] [facility] [place] 09-06-2020 20:25-0500 Pulse (Heart Rate) 80 /min [facility], [place] 09-06-2020 20:25-0500 Respiratory Rate 22 /min [facility] 09-06-2020 17:04-0500 Pulse Oximetry 94 % [facility] [place] 09-06-2020 15:49-0500 BMI (Body Mass Index) 42.98 kg/m2 [facility] 09-06-2020 15:49-0500 Body weight 106.59 kg [facility] , [place] 09-06-2020 15:49-0500 Height 157.5 cm [place], [place] NEGATED: Highlighted [id number] 11:06-0400 Body height 156.[address] [facility] Work Phone: NEGATED: Highlighted [id number] 11:06-0400 Body height [address] [facility] Work Phone: NEGATED: Highlighted [id number] 11:06-0400 Body mass index (BMI) [Ratio] 38.43 kg/m2 [facility] Work Phone: NEGATED: Highlighted [id number] 11:06-0400 Body weight 93.44 kg Roselia Tanner [facility] Work Phone: NEGATED: Highlighted [id number] 11:06-0400 Body weight 94 kg Roselia Tanner CUSTOMIZER [facility] Work Phone: Encounters Encounter Date Encounter Type Care Provider Facility Start: 04-01-2025 Non-patient / Non-visit Dr. Andrade alaniz DO [facility] Work Phone: Start: 04-01-2025 Evaluation and manag ement of inpatient Dr. 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) Start: 03-14-2025 End: 03-14-2025 ambulatory [facility] Facility:[facility] Start: 03-14-2025 End: 03-14-2025 Office outpatient visit 25 minutes Gini Ayala [employer]TIER IN Work Phone: [facility] Comment on above: Essential hypertensi on (Primary Dx) Start: 03-14-2025 End: 03-14-2025 ambulatory SYLVIA LIZAMA Facility:[facility] Start: 03-14-2025 End: 03-14-2025 Subsequent hospital visit by physician [facility] (I-Stat) Work Phone: Cat Scan Comment on above: 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) [C82.08] Start: 03-01-2025 End: 03-01-[address] DL Facility:[facility] Start: 03-01-2025 End: 03-01-2025 Patient encounter procedure Judith Pickard APRN.CNP Work Phone: [facility] Comment on above: Initial Medicare ann ual wellness visit (Primary Dx); Neuropathy; Screening for cholesterol level; Screening for diabetes mellitus; Cognitive changes; Mixed hyperlipidemia; B-cell lymphoma, unspecified B-cell lymphoma type, unspecified body region (HCC); Debility; Chronic kidney disease, unspecified CKD stage; Hypothyroidism, unspecified type; Spinal stenosis, lumbar region, with neurogenic claudication Start: 02-24-2025 End: 02-24-2025 ambulatory Harini Martinez RN Work Phone: [facility] [employer] Comment on above: Primary Care Coordin ator- Other (Chart review) Start: 12-28-2024 End: 12-28-[address] DL Facility:[facility] Start: 12-28-2024 End: 12-28-2024 Patient encounter procedure Sylvia Lizama MD Work Phone: [facility] Comment on above: Urinary tract infect ion without hematuria, site unspecified (Primary Dx); Debility; Essential hypertension; Mixed hyperlipidemia; Chronic kidney disease, unspecified CKD stage; Hypothyroidism, unspecified type; B-cell lymphoma, unspecified B-cell lymphoma type, unspecified body region (HCC); 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 ([facility]); Spinal stenosis, lumbar region, with neurogenic claudication; Anxiety with depression; Body mass index (BMI) 40.0-44.9, adult ([facility]); Neuropathy; Tremor; Urinary incontinence, unspecified type Start: 12-20-2024 End: 12-23-2024 Patient Outreach Sylvia Lizama MD Work Phone: [facility] Comment on above: Transition Of Care Elevated BP- TCM enc ounter Start: 12-15-2024 End: 12-15-2024 Patient encounter procedure Christina MALONE -[facility] Work Phone: Start: 12-15-2024 End: 12-15-2024 ambulatory Christina Knox VEGETABLE WASHER [place] Start: 12-15-2024 Registered Referred Rafat Dexter Start: 12-10-2024 End: 12-10-2024 ambulatory SYLVIA LIZAMA Facility:[facility] Start: 12-10-2024 End: 12-10-2024 Office outpatient visit 15 minutes César Quintero DO Work Phone: Hematology/Oncology Comment on above: 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 Rafat Casper MD -[facility] Work Phone: Start: 12-02-2024 End: 12-02-2024 Patient encounter procedure Christina Knox VEGETABLE WASHER- -[facility] Work Phone: Start: 12-02-2024 End: 12-02-2024 ambulatory Christina Knox VEGETABLE WASHER [place] Start: 12-02-2024 Registered Referred Rafat Dexter Start: 12-01-2024 Non-patient / Non-visit Dr. Hanh Joiner MD -[facility] Work Phone: Start: 11-30-2024 Non-patient / Non-visit Dr. Sandee LARIOS -[facility] Work Phone: Start: 11-29-2024 Non-patient / Non-visit Dr. Alysha connolly MD -[facility] Work Phone: Start: 11-28-2024 Non-patient / Non-visit Dr. Alysha connolly MD -[facility] Work Phone: Start: 11-27-2024 ambulatory Jaxson Tucker ility:[facility] Start: 11-27-2024 End: 12-01-2024 Evaluation and management of inpatient Dr. Kenyon Joiner MD -[facility] Work Phone: Start: 11-27-2024 Non-patient / Non-visit Dr. Alysha connolly MD -[facility] Work Phone: Start: 11-26-2024 ambulatory Jaxson Tucker ility:[facility] Start: 11-26-2024 Evaluation and manag ement of inpatient Dr. Jaxson Meehan DO [facility] Work Phone: Start: 11-26-2024 Non-patient / Non-visit [facility] Ignacio [facility] Work Phone: Start: 11-26-[address] Haja Lizama MD Work Phone: [facility] Work Phone: Start: 11-26-2024 End: 11-26-2024 Telephone encounter César Quintero DO Work Phone: Hematology/Oncology Comment on above: Patient Update Start: 11-15-2024 End: 11-15-2024 Follow-up encounter Judith Pickard [employer]TIER IN Work Phone: [facility] Start: 11-12-2024 End: 11-12-2024 Office outpatient visit 15 minutes Judith Pickard [employer]STATE [employer]ER.TIER IN Work Phone: [facility] Comment on above: Essential hypertensi on (Primary Dx); Migraine without aura and without status migrainosus, not intractable; Hypothyroidism due to acquired atrophy of thyroid; Anxiety with depression; GERD without esophagitis; Viral URI Start: 11-12-2024 End: 11-12-2024 ambulatory [facility] Facility:[facility] Start: 11-12-2024 End: 11-12-2024 ambulatory 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] Start: 11-10-2024 End: 11-10-2024 Telephone encounter César Quintero DO Work Phone: [...] 11-01-2024 Subsequent hospital visit by physician [facility] Work Phone: Radiology Comment on above: Acute cough [R05.1] Start: 11-01-2024 End: 11-01-2024 [facility] Facility:[facility] Start: 11-01-2024 End: 11-01-2024 Patient encounter procedure Elida Lozada APRN.TIER IN Work Phone: [facility] Comment on above: Burning with urinati on (Primary Dx); Acute cough; URI, acute Start: 10-08-2024 End: 10-08-2024 ambulatory Treatment Rm 5 [facility] Work Phone: Hematology/Oncology Comment on above: 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) Start: 10-01-2024 End: 10-01-2024 ambulatory Treatment Rm 9 [facility] Work Phone: Hematology/Oncology Comment on above: 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) Start: 09-24-2024 End: 09-24-2024 ambulatory Treatment Rm 10 [facility] Work Phone: Hematology/Oncology Comment on above: 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) Start: 09-20-2024 End: 09-20-2024 Telephone encounter Chinyere Shea RN Work Phone: Hematology/Oncology Comment on above: Care Coordination (C YCLE 1/DAY 1 POST TREATMENT CALL ) Start: 09-17-2024 End: 09-17-2024 ambulatory Treatment Rm 2 [facility] Work Phone: Hematology/Oncology Comment on above: 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) Start: 09-16-2024 End: 09-16-2024 Orders Only Prince Fang MD Work Phone: Hematology/Oncology Start: 09-06-2024 End: 09-06-2024 Telephone encounter Financial Navigator [facility] Work Phone: Hematology/Oncology Comment on above: Benefits Investigati on Start: 09-03-2024 End: 09-03-2024 Telephone encounter Shannon Hiu RN Hematology/Oncology Comment on above: Immigration Officer - O ther (Introduction/change in treatment ) avs Start: 09-03-2024 End: 09-03-2024 ambulatory [facility] Facility:[facility] Start: 09-03-2024 End: 09-03-2024 ambulatory [facility] Facility:[facility] Start: 09-03-2024 End: 09-03-2024 Office outpatient visit 25 minutes César Quintero DO Work Phone: Hematology/Oncology Comment on above: 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) Start: 08-27-2024 End: 08-27-2024 ambulatory [facility] Facility:[facility] Start: 08-27-2024 End: 08-27-2024 ambulatory [facility] Facility:[facility] Start: 08-27-2024 End: 08-27-2024 Subsequent hospital visit by physician [facility] (I-Stat) Work Phone: Cat Scan Comment on above: 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] Start: 08-12-2024 End: 08-12-2024 [facility] Facility:[facility] Start: 08-12-2024 End: 08-12-2024 Subsequent hospital visit by physician [facility] (I-Stat/1.5t) Work Phone: Radiology Comment on above: Worsening headaches [R51.9] Start: 08-11-2024 End: 08-11-2024 ambulatory Sylvia Lizama MD Work Phone: [facility] Comment on above: low blood pressure Start: 07-28-2024 End: 07-28-2024 Telephone encounter Missy Hirsch PA-C Work Phone: Neurology Comment on above: Insurance Authorizat ion (Prior authorization [employer]ili[employer]) Results Start: 07-27-2024 End: 07-27-2024 [facility] Facility:[facility] Start: 07-27-2024 End: 07-27-2024 Patient encounter procedure Missy Hirsch PA-C Work Phone: Neurology Comment on above: Worsening headaches (Primary Dx); Disorder of labyrinth, unspecified laterality; Intractable chronic migraine with aura and without status migrainosus Burning with urinati on (Primary Dx); Acute cystitis with hematuria Start: 07-27-2024 End: 07-27-2024 [facility] SYLVIA LIZAMA Facility:[facility] Start: 07-14-2024 End: 07-14-2024 [facility] Start: 07-14-2024 End: 07-14-2024 Patient encounter procedure Franklyn Juares MD Work Phone: Ophthalmology Comment on above: Combined forms of ag e-related cataract of both eyes (Primary Dx); Other headache syndrome; Ocular hypertension, bilateral; Optic cupping of both eyes; Essential hypertension; Sleep apnea, unspecified type; Hypothyroidism, unspecified type; History of blood clots; Anxiety with depression Start: 07-09-2024 End: 07-09-2024 ambulatory [facility] Facility:[facility] Start: 07-09-2024 End: 07-09-2024 Subsequent hospital visit by physician [facility] Comment on above: 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] Start: 07-06-2024 End: 07-06-2024 Office outpatient visit 25 minutes Judith Pickard COMM[employer] ESTATE LENDER.TIER IN Work Phone: [facility] Comment on above: Disorder of labyrint h, unspecified laterality (Primary Dx); Essential hypertension; Impacted cerumen, unspecified laterality; Dizziness Start: 07-06-2024 End: 07-06-2024 ambulatory [facility] Facility:[facility] Start: 07-04-2024 End: 07-04-2024 ambulatory Layla Malave RN NURSE [employer]INT [employer] DEPOSITOR Comment on above: Hypertension Start: 07-04-2024 End: 07-04-2024 Emergency department patient visit [facility] Facility:[facility] Start: 07-02-2024 End: 07-02-2024 ambulatory [facility] Facility:[facility] Start: 07-02-2024 End: 07-02-2024 Office outpatient visit 15 minutes Judith Pickard [employer]ER[employer] ESTATE LENDER.TIER IN Work Phone: [facility] Comment on above: Vision changes (Prim chelsea Dx); Disorder of labyrinth, unspecified laterality; Acute frontal sinusitis, recurrence not specified Start: 06-30-2024 End: 07-01-2024 Telephone encounter Sylvia Lizama MD Work Phone: [facility] Comment on above: Future Appointment Start: 06-17-2024 End: 06-17-2024 Office outpatient visit 25 minutes Judith Pickard [employer]ER[employer] ESTATE L[employer]ER.TIER IN Work Phone: [facility] Comment on above: History of DVT (deep vein thrombosis) (Primary Dx); Essential hypertension; Migraine without aura and without status migrainosus, not intractable; Hypothyroidism, unspecified type; Urge incontinence; Hair loss; Angioedema, subsequent encounter; Hypopotassemia Start: 06-17-2024 End: 06-17-2024 [facility] Facility:[facility] Start: 05-25-2024 End: 05-27-2024 ambulatory Judith Pickard [employer]ERCIAL [employer] ESTATE LENDER.TIER IN Work Phone: [facility] Comment on above: Lisa info about m edicines we are watching Start: 05-18-2024 End: 05-18-2024 Office outpatient visit 15 minutes Judith Pickard [employer]STATE L[employer]ER.TIER IN Work Phone: [facility] Comment on above: Migraine without aur a and without status migrainosus, not intractable (Primary Dx); Left arm pain; Neck pain; DDD (degenerative disc disease), lumbar; Essential hypertension; Pure hypercholesterolemia; Orthostatic dizziness; Dizziness Start: 05-18-2024 End: 05-18-2024 [facility] Facility:[facility] Start: 05-12-2024 End: 05-12-2024 Telephone encounter Sathya Rajan MD Work Phone: [facility] Comment on above: Results (Urine Cx mi xed) Start: 05-11-2024 End: 05-11-2024 [facility] Facility:[facility] Start: 05-11-2024 End: 05-11-2024 Patient encounter procedure Enid Potter APRN.TIER IN Work Phone: [facility] Comment on above: Urinary frequency (P rimary Dx) Start: 05-08-2024 End: 05-08-2024 Emergency department patient visit Evans Jones Facility:[facility] Start: 05-03-2024 End: 05-03-2024 Office outpatient visit 15 minutes Judith Pickard [employer]CIAL [employer] ESTATE LENDER.TIER IN Work Phone: [facility] Comment on above: Essential hypertensi on (Primary Dx); GERD without esophagitis; Diarrhea, unspecified type Start: 05-03-2024 End: 05-03-2024 [facility] Facility:[facility] Start: 04-29-2024 End: 04-29-2024 ambulatory [facility] Facility:[facility] Start: 04-29-2024 End: 04-29-2024 Subsequent hospital visit by physician Zeny Crowder MD Work Phone: Ambulatory Surgery Comment on above: Diarrhea, unspecifie d type [R19.7] Start: 04-26-2024 Telephone encounter Brendon rapp [employer]STATE L[employer]ER.TIER IN Work Phone: Hematology/Oncology Start: 04-19-2024 ambulatory Bozena dudley RN Work Phone: [facility] Start: 04-19-2024 Telephone follow-up Bozena Hirsch RN Work Phone: [facility] Comment on above: Transition Of Care ( TCM followup ) Weekly phone contact (Recurring) for Transitional Care Management Start: 04-15-2024 End: 04-15-2024 ambulatory [facility] Facility:[facility] Start: 04-15-2024 End: 04-15-2024 Subsequent hospital visit by physician [facility] (I-Stat) Work Phone: Cat Scan Comment on above: 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] Soft tissue mass [M7 9.89] Start: 04-12-2024 ambulatory Bozena dudley RN Work Phone: [facility] Start: 04-12-2024 Telephone follow-up Bozena Hirsch RN Work Phone: [employer] Comment on above: Transition Of Care ( TCM OON follow up ) Weekly phone contact (Recurring) for Transitional Care Management Start: 04-08-2024 End: 04-08-2024 ambulatory Sylvia Lizama MD Work Phone: [facility] [place] Comment on above: Hypotension Start: 04-08-2024 End: 04-08-2024 Office outpatient visit 15 minutes Judith Pickard COMMERCIAL REAL ESTATE LENDER.TIER IN Work Phone: [facility] [place] Comment on above: BPPV (benign paroxys mal positional vertigo), unspecified laterality (Primary Dx) Start: 04-05-2024 ambulatory Kim medel RN Work Phone: [employer] Start: 04-05-2024 Telephone follow-up Kim rivera RN Work Phone: [employer] Comment on above: Transition Of Care ( Tcm follow up ) Weekly phone contact (Recurring) for Transitional Care Management Start: 04-03-2024 Refill Sylvia Lizama MD Work Phone: [facility] [place] Comment on above: Refill Request Start: 04-02-2024 End: 04-02-2024 ambulatory SYLVIA LIZAMA Facility:[facility] Start: 04-02-2024 End: 04-02-2024 Patient encounter procedure Sylvia Lizama MD Work Phone: [facility] Comment on above: Diarrhea of [...] Telephone encounter Sylvia Lizama MD Work Phone: [facility] [place] Comment on above: Patient Update Start: 03-29-2024 End: 03-29-2024 Patient Outreach Bozena Hirsch RN Work Phone: [employer] Comment on above: Transition Of Care ( TCM/ OON [place] / [facility] 03/26/24) Initial phone contact for Transitional Care Management Diarrhea, unspecifie d type Start: 03-24-2024 ambulatory [facility] Facility:[facility] Start: 03-24-2024 End: 03-26-2024 Evaluation and management of inpatient Kenyon Joiner Facility:[facility] Start: 03-24-2024 Telephone encounter Gini cowart APRN.CNP Work Phone: [facility] Comment on above: Patient Update Start: 03-23-2024 Telephone encounter Gini cowart COMMERCIAL REAL ESTATE LENDER.TIER IN Work Phone: [facility] [place] Comment on above: Results Start: 03-19-2024 Refill Judith A S uppan COMMERCIAL REAL ESTATE LENDER.GRADUATE RESEARCH ASSISTANT Work Phone: [facility] [place] Comment on above: Refill Request Start: 03-15-2024 ambulatory Abril nolen RN NURSE MINT [employer] DEPOSITOR Comment on above: Fatigue; Viral Syndr ome Start: 03-15-2024 End: 03-15-2024 Office outpatient visit 25 minutes Gini Ayala [employer]ERCIAL REAL ESTATE LENDER.TIER IN Work Phone: [facility] [place] Comment on above: Diarrhea, unspecifie d type (Primary Dx); Sinobronchitis Start: 03-05-2024 ambulatory Judith A S uppan COMMERCIAL REAL ESTATE LENDER.GRADUATE RESEARCH ASSISTANT Work Phone: [facility] [place] Comment on above: RESULTS Start: 03-05-2024 E-mail encounter [place] [facility] caregiver Judith A Suppan COMMERCIAL REAL ESTATE LENDER.GRADUATE RESEARCH ASSISTANT Work Phone: [facility] [place] Start: 03-04-2024 End: 03-04-2024 Office outpatient visit 25 minutes Judith A Suppan COMMERCIAL REAL ESTATE LENDER.GRADUATE RESEARCH ASSISTANT Work Phone: [facility] [place] Comment on above: Diarrhea, unspecifie d type (Primary Dx); Anxiety with depression; Chilling; Chills Start: 03-03-2024 ambulatory Sylvia Lizama MD Work Phone: [facility] [place] Comment on above: Diarrhea Start: 02-19-2024 End: 02-19-2024 Patient encounter procedure Shaila Sergey COMMERCIAL REAL ESTATE LENDER.TIER IN Work Phone: OB/Gynecology Comment on above: Urinary incontinence without sensory awareness (Primary Dx) Start: 02-05-2024 End: 02-05-2024 Office outpatient visit 15 minutes Judith A Suppan COMMERCIAL REAL ESTATE LENDER.GRADUATE RESEARCH ASSISTANT Work Phone: [facility] [place] Comment on above: Anxiety with depress ion (Primary Dx); Left arm pain; Neck pain; DDD (degenerative disc disease), lumbar Start: 01-09-2024 Telephone encounter Sylvia Lizama MD Work Phone: [facility] [place] Comment on above: Dose Clarification ( Zoloft ) Start: 01-08-2024 Telephone encounter Brendon rapp [employer]ERCIAL REAL ESTATE LENDER.TIER IN Work Phone: Hematology/Oncology Start: 01-07-2024 End: 01-07-2024 Patient encounter procedure Sylvia Lizama MD Work Phone: [facility] [place] Comment on above: Essential hypertensi on (Primary Dx); GERD without esophagitis; Mixed hyperlipidemia; Essential tremor; Hypothyroidism, unspecified type; B-cell lymphoma, unspecified B-cell lymphoma type, unspecified body region (HCC); Thrombocytopenia, secondary; Anxiety with depression; Bilateral carotid artery stenosis; History of DVT (deep vein thrombosis) Start: 01-02-2024 Telephone encounter Brendon rapp COMMERCIAL REAL ESTATE LENDER.TIER IN Work Phone: Hematology/Oncology Start: 12-30-2023 Telephone encounter Brendon rapp COMMERCIAL REAL ESTATE LENDER.TIER IN Work Phone: Hematology/Oncology Comment on above: Results Start: 12-24-2023 End: 12-24-2023 Subsequent hospital visit by physician [facility] Cat Scan Comment on above: 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] Start: 11-09-2023 Telephone encounter Kimberly Altamirano APRN.TIER IN Work Phone: [facility] Comment on above: Results Start: 11-07-2023 End: 11-07-2023 Subsequent hospital visit by physician [facility] Work Phone: Radiology Comment on above: Neck mass [R22.1] Start: 2023 End: 2023 Patient encounter procedure Darrian HOPKINS Work Phone: [facility] Comment on above: Urinary frequency [...] Telephone encounter Sylvia Lizama MD Work Phone: [facility] [place] Comment on above: CPAP Supplies order Start: 07-08-2023 End: 07-08-2023 Patient encounter procedure Sylvia Lizama MD Work Phone: [facility] [place] Comment on above: Essential hypertensi on (Primary Dx); GERD without esophagitis; Mixed hyperlipidemia; Non-rheumatic tricuspid valve insufficiency; Essential tremor; Other migraine without status migrainosus, not intractable; CHRISTIANA (obstructive sleep apnea); Gastroesophageal reflux disease, unspecified whether esophagitis present; B-cell lymphoma, unspecified B-cell lymphoma type, unspecified body region (HCC); Hypothyroidism, unspecified type; USP current use of anticoagulant therapy; Valvular heart disease Start: 07-08-2023 Documentation procedure Mammog [place] Coordinator [facility] Start: 07-08-2023 Letter encounter Mammography Coordinator [facility] Department Start: 07-08-2023 End: 07-08-2023 Subsequent hospital visit by physician [facility] Comment on above: Encounter for screen ing mammogram for malignant neoplasm of breast [Z12.31] Start: 06-13-2023 End: 06-13-2023 Patient encounter procedure Prince Fang MD Work Phone: [place] [facility] [place] Start: 06-13-2023 End: 06-13-2023 ambulatory [facility] Work Phone: Hematology/Oncology Comment on above: 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); 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) Encounter for screen ing mammogram for malignant neoplasm of breast (Primary Dx); 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) Start: 06-06-2023 End: 06-06-2023 ambulatory [facility] Work Phone: Hematology/Oncology Comment on above: 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) Start: 06-06-2023 End: 06-06-2023 Subsequent hospital visit by physician [facility] (I-Stat) Work Phone: Cat Scan Comment on above: 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] Start: 06-05-2023 Telephone encounter César sigala DO Work Phone: Hematology/Oncology Comment on above: Appointment Start: 05-13-2023 End: 05-13-2023 ambulatory Abdullahi Guerra PT Work Phone: [facility] Comment on above: Left arm pain (Prima ry Dx); Neck pain Start: 05-09-2023 End: 05-09-2023 ambulatory Abdullahi Guerra PT Work Phone: [facility] Comment on above: Left arm pain (Prima ry Dx); Neck pain Start: 05-06-2023 End: 05-06-2023 ambulatory Sidra Kashuba KENNEL HAND Work Phone: [facility] Comment on above: Left arm pain (Prima ry Dx); Neck pain Start: 04-29-2023 End: 04-29-2023 ambulatory Sidra Kashuba KENNEL HAND Work Phone: [facility] Comment on above: Left arm pain (Prima ry Dx); Neck pain Start: 04-25-2023 End: 04-25-2023 ambulatory Sidra Kashuba KENNEL HAND Work Phone: [facility] Comment on above: Left arm pain (Prima ry Dx) Start: 04-17-2023 End: 04-17-2023 Refill Sylvia Lizama MD Work Phone: [facility] Comment on above: Refill Request Opened In Error Upper back pain on l eft side (Primary Dx) Start: 04-03-2023 End: 04-03-2023 Subsequent hospital visit by physician [facility] Work Phone: Radiology Comment on above: Left arm pain [M79.6 02] Start: 04-03-2023 End: 04-03-2023 Patient encounter procedure Sylvia Lizama MD Work Phone: [facility] Comment on above: Mixed hyperlipidemia [...] lumbar Start: 03-26-2023 Telephone encounter Elissa yañez APRN.TIER IN Work Phone: [facility] Comment on above: Results (Shoulder xr ay results ) Start: 03-24-2023 End: 03-24-2023 Subsequent hospital visit by physician [facility] Work Phone: Radiology Comment on above: Acute pain of left s houlder [M25.512] Start: 03-24-2023 End: 03-24-2023 Patient encounter procedure Elissa Felipe APRN.TIER IN Work Phone: [facility] Comment on above: Acute pain of left s houlder (Primary Dx); Muscle tension pain Start: 02-24-2023 End: 02-24-2023 ambulatory Treatment Rm [facility] Work Phone: Hematology/Oncology Comment on above: [...] bilateral; Essential hypertension Start: 01-01-2023 Telephone encounter Chniyere clifofrd RN Work Phone: Hematology/Oncology Comment on above: Care Coordination (C YCLE 1/DAY 1 POST TREATMENT CALL ) Start: 12-30-2022 End: 12-30-2022 ambulatory Treatment Rm [facility] Work Phone: Hematology/Oncology Comment on above: [...] Gini Ayala APRN.CNP Work Phone: [facility] [place] Comment on above: Acute generalized ex anthematous [...] procedure Anca Almonte MD Work Phone: [facility] Start: 12-17-2022 Telephone encounter Anca dominguez MD Work Phone: Hematology/Oncology Comment on above: AVS 12/17/22 Start: 12-12-2022 Chart abstracting [facility] Work Phone: Neurology Comment on above: HSAT Check In (Adult ) Start: 12-09-2022 End: 12-09-2022 Patient encounter procedure Sylvia Lizama MD Work Phone: [facility] [place] Comment on above: Essential hypertensi on Start: 12-09-2022 End: 12-09-2022 Subsequent hospital visit by physician [facility] Cat [facility] Comment on above: 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] Start: 11-27-2022 End: 11-27-2022 Patient encounter procedure Sylvia Lizama MD Work Phone: [facility] Comment on above: Essential tremor [...] procedure Anca Almonte MD Work Phone: [facility] [place] Start: 11-25-2022 End: 11-25-2022 ambulatory [facility] Work Phone: Hematology/Oncology Comment on above: [...] Refill [facility] Norberto clayton PA-C Work Phone: [facility] [place] Comment on above: Refill Request Start: 11-12-2022 Telephone encounter Anca dominguez MD Work Phone: Hematology/Oncology Comment on above: Patient Question (Sy mptoms) Start: 11-07-2022 End: 11-07-2022 Patient encounter procedure [facility] Norberto Lemus PA-C Work Phone: [facility] [place] Comment on above: Essential hypertensi on (Primary Dx); SOB (shortness of breath); B-cell lymphoma, unspecified B-cell lymphoma type, unspecified body region (HCC); Chronic respiratory failure with hypoxia (HCC); Intermittent lightheadedness Start: 11-04-2022 Telephone encounter Sylvia Lizama MD Work Phone: [facility] [place] Comment on above: Elevated BP Start: 10-30-2022 End: 10-30-2022 ambulatory Treatment Rm [facility] Work Phone: Hematology/Oncology Comment on above: 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) Start: 10-28-2022 End: 10-28-2022 Patient encounter procedure Brendon Coppola APRN.TIER IN Work Phone[facility] [place] Start: 10-28-2022 End: 10-28-2022 ambulatory [facility] Work Phone: Hematology/Oncology Comment on above: 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); Thrombocytopenia, 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); Thrombocytopenia, secondary Start: 10-11-2022 ambulatory Shawna Pederson RN Work Phone: [employer] Comment on above: cdm (enrollment) Start: 10-04-2022 Telephone encounter Shannon Hui RN He matology/Oncology Comment on above: Immigration Officer - O ther (Symptoms ) Start: 10-03-2022 End: 10-03-2022 ambulatory In[facility] Work Phone: Hematology/Oncology Comment on above: 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) Start: 10-02-2022 End: 10-02-2022 ambulatory Treatment Rm [facility] Work Phone: Hematology/Oncology Comment on above: 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) Start: 10-01-2022 Chart abstracting Edyta Whelan RN Hematology/Oncology Comment on above: Consent [id number] - Non-I nterventional Start: 10-01-2022 Telephone encounter Melba Escudero MD Work Phone: Hematology/Oncology Comment on above: Patient Update Appointment Start: 10-01-2022 End: 10-01-2022 ambulatory Treatment Rm [facility] Work Phone: Hematology/Oncology Comment on above: 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) Start: 09-24-2022 End: 09-24-2022 ambulatory [facility] Work Phone: Hematology/Oncology Comment on above: 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) Start: 09-24-2022 End: 09-24-2022 Subsequent hospital visit by physician [facility] Cat [facility] Comment on above: 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] Start: 09-20-2022 Orders Only César Reynolds Work Phone: Hematology/Oncology Comment on above: 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) Start: 09-03-2022 End: 09-03-2022 ambulatory Treatment Rm [facility] Work Phone: Hematology/Oncology Comment on above: 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 [place] Start: 08-19-2022 Refill Brendon kwok APRN.TIER IN Work Phone: Hematology/Oncology Comment on above: Refill Request Start: 08-12-2022 Telephone encounter Sylvia Lizama MD Work Phone: [facility] [place] Comment on above: Appointment Start: 08-05-2022 Telephone encounter Chinyere clifford RN Work Phone: Hematology/Oncology Comment on above: Immigration Officer - H ospital Follow Up Start: 08-04-2022 Non-patient / Non-visit Dr. Cathryn Lizama Work Phone: [facility] Start: 08-04-2022 Non-patient / Non-visit Dr. Cathryn Lizama Work Phone: [facility] Start: 08-03-2022 Non-patient / Non-visit Dr. Cathryn Lizama Work Phone: [facility] Start: 08-02-2022 Non-patient / Non-visit Dr. Cathryn Lizama Work Phone: [facility] Start: 08-01-2022 Telephone encounter [facility] Comment on above: Appointment Start: 08-01-2022 Non-patient / Non-visit Dr. Cathryn Lizama Work Phone: [facility] Start: 07-31-2022 Telephone encounter Melba Escudero MD Work Phone: Hematology/Oncology Comment on above: Patient Update Start: 07-31-2022 Non-patient / Non-visit Dr. Cathryn Lizama Work Phone: [facility] Start: 07-31-2022 Non-patient / Non-visit Dr. Cathryn Lizama Work Phone: [facility] Start: 07-30-2022 Telephone encounter Chinyere clifford RN Work Phone: Hematology/Oncology Comment on above: Care Coordination (A dmitted to [facility]) Start: 07-30-2022 End: 08-04-2022 Evaluation and management of inpatient Dr. Sylvia Lizama Work Phone: [facility] Start: 07-26-2022 Telephone encounter Chinyere clifford RN Work Phone: Hematology/Oncology Comment on above: Care Coordination (T oxicity Check--Weakness, night sweats, mild diarrhea controlled with Imodium ) Start: 07-23-2022 End: 07-23-2022 Patient encounter procedure Melba Escudero MD Work Phone: [facility] Start: 07-23-2022 End: 07-23-2022 ambulatory [facility] Work Phone: Hematology/Oncology Comment on above: [...] 06-28-2022 End: 06-28-2022 ambulatory Treatment [facility] Work Phone: Hematology/Oncology Comment on above: [...] procedure César Quintero DO Work Phone: [facility] Start: 06-11-2022 End: 06-11-2022 Nursing evaluation of patient and report Mi Nurse Work Phone: [facility] [place] Comment on above: Need for influenza v [...] Start: 06-05-2022 End: 06-05-2022 ambulatory ZENY CROWDER Facility:[facility] Start: 05-31-2022 End: 05-31-2022 Refill Brendon [...] Sylvia Lizama MD Work Phone: [facility] [place] Comment on above: Refill Request Start: 05-23-2022 Telephone encounter Sylvia Lizama MD Work Phone: [facility] [place] Comment on above: Patient Question Start: 05-22-2022 [...] 04-22-2022 Subsequent hospital visit by physician [facility] Work Phone: Radiology Comment on above: [...] 02-04-2022 Refill Sylvia Lizama MD Work Phone: [facility] Comment on above: Refill Request medications Start: 01-29-2022 End: 01-29-2022 ambulatory Melba Escudero MD Work Phone: Hematology/Oncology Comment on above: 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); Encounter for screening mammogram for malignant neoplasm of breast Start: 01-29-2022 End: 01-29-2022 Patient encounter procedure Melba Escudero MD Work Phone: [facility] Start: 12-12-2021 End: 12-12-2021 Pt evaluation Mu Schaffer MD Work Phone: [facility] Work Phone: Start: 04-30-2021 End: 04-30-2021 Subsequent hospital visit by physician Mu Schaffer MD Work Phone: [facility] Comment on above: Arrived Start: 03-21-2021 End: 03-21-2021 Subsequent hospital visit by physician [facility] Work Phone: Radiology Comment on above: Chest pain, unspecif ied type [R07.9] Start: 02-01-2021 ambulatory Sylvia Lizama MD Work Phone: [facility] Comment on above: Dizziness Start: 01-12-2021 End: 01-12-2021 Subsequent hospital visit by physician [facility] Work Phone: Radiology Comment on above: Chills [R68.83] Start: 12-06-2020 End: 12-06-2020 Subsequent hospital visit by physician [facility] Work Phone: Radiology Comment on above: Infected sebaceous c yst of skin [L72.3, L08.9] Start: 09-13-2020 End: 09-13-2020 Emergency department patient visit Pavel Watts Work Phone: [facility] Emergency Dept Comment on above: Upper respiratory tr act infection, unspecified type (Primary Dx) Start: 09-06-2020 End: 09-06-2020 Emergency department patient visit Kaden Kessler Work Phone: [facility] Emergency Dept Comment on above: Acute UTI (Primary D x); Chills Start: 08-30-2020 End: 08-30-2020 Subsequent hospital visit by physician [facility] Work Phone: Radiology Comment on above: Encounter by [facility] for suspected COVID-19 [Z20.828] Start: 08-30-2019 End: 08-30-2019 Subsequent hospital visit by physician Mu Schaffer MD Work Phone: [facility] MRI Comment on above: Arrived Start: 02-22-2018 End: 02-22-2018 Emergency department patient visit Jose Marcos Julien Facility:[facility] Start: 11-18-2017 End: 11-18-2017 Emergency department patient visit PAVEL ALCANTARA [facility] Procedures Date Procedure Procedure Detail Performing Clinician [...] exam ches t 2 views Elida Lozada COMMERCIAL [employer] ESTATE LENDER.TIER IN Work Phone: Start: 11-01-2024 Urnls dip stick/tabl et rgnt auto w/o microscopy Elida Lozada COMMERCIAL [employer] ESTATE LENDER.TIER IN Work Phone: Start: 08-12-2024 Mri brain brain stem w/o w/contrast material Missy Hirsch PA-C Work Phone: Start: 07-27-2024 Urnls dip stick/tabl et rgnt auto w/o microscopy Helen Bonilla COMMERCIAL [employer] ESTATE LENDER.TIER IN Work Phone: Start: 05-11-2024 Urnls dip stick/tabl et rgnt auto w/o microscopy Darrian HOPKINS Work Phone: Start: 04-29-2024 Colonoscopy flx dx w/collj spec when pfrmd Zeny Crowder MD Work Phone: Start: 04-15-2024 Us lmtd joint/oth nonvasc xtr strux r-t w/img Sylvia Lizama MD Work Phone: Start: 03-15-2024 STREP A MOLECULAR (POC) Gini Ayala [employer]ERCIAL [employer] ESTATE LENDER.TIER IN Work Phone: Start: 2023 Urnls dip stick/tabl et rgnt auto w/o microscopy Elida Lozada COMMERCIAL REAL ESTATE LENDER.TIER IN Work Phone: Start: 08-25-2023 Fundus photography w/interpretation [...] compl ete minimum 2 views Elissa Felipe APRN.TIER IN Work Phone: Start: 02-24-2023 CBC + DIFF [...] count complete auto&auto difrntl wbc Brendon Coppola [employer]ERCIAL [employer] ESTATE LENDER.TIER IN Work Phone: Start: 09-24-2022 Ct abdomen & pelvis w/contrast material Melba Esucdero MD Work Phone: Start: 09-24-2022 Ct thorax [...] et rgnt auto w/o microscopy Elida Lozada COMMERCIAL [employer] ESTATE LENDER.TIER IN Work Phone: Start: 05-10-2022 US LYMPH NODE [...] exam ches t 2 views Gini Ayala [employer]ERCIAL [employer] ESTATE L[employer]ER.TIER IN Work Phone: Start: 12-06-2020 Radex spine lumbosac ral 2/3 views Zeny Augusitn [employer]CIAL [employer]STATE L[employer]ER.TIER [place], DNP Work Phone: Start: 09-13-2020 Urnls dip [...] exam ches t 2 views Gini Ayala APRN.TIER IN Work Phone: Anaerobic microbial culture Dr. Sylvia [...] Author Start: 03-14-2028 Diabetes Screening Diabetes Screening [facility] Start: 02-24-2028 Urine microalbumin profile [facility] Start: 11-12-2027 Diabetes Screening Diabetes Screening [facility] Start: 09-17-2027 Diabetes Screening Diabetes Screening [facility] Start: 08-27-2027 Diabetes Screening Diabetes Screening [facility] Start: 04-02-2027 Diabetes Screening Diabetes Screening [facility] Start: 03-15-2027 Diabetes Screening Diabetes Screening [facility] [facility] Start: 03-04-2027 Diabetes Screening Diabetes Screening [facility] Start: 01-06-2027 Diabetes Screening Diabetes Screening [facility] Start: 06-13-2026 Diabetes Screening Diabetes Screening [facility] Start: 03-01-2026 Medicare Annual Wellness Visit Medicare Annual Wellness Visit [facility] Start: 03-01-2026 RSV Vaccine (1 - 1-dose 75+ series) RSV Vaccine (1 - 1-dose 75+ series) [facility] Comment on above: Postponed from 2018 (Declined at t his time) Start: 03-01-2026 Shingrix Vaccine (1 of 2) Shingrix Vaccine (1 of 2) [facility] Comment on above: Postponed from 1962 (Declined at t his time) Start: 02-11-2026 DIABETES SCREEN DIABETES SCREEN [facility] Start: 02-11-2026 Diabetes Screening Diabetes Screening [facility] Start: 12-30-2025 DIABETES SCREEN DIABETES SCREEN [facility] Start: 11-25-2025 DIABETES SCREEN DIABETES SCREEN [facility] Start: 10-28-2025 DIABETES SCREEN DIABETES SCREEN [facility] Start: 09-24-2025 DIABETES SCREEN DIABETES SCREEN [facility] Start: 09-17-2025 Creatinine measurement Serum Creatinine [facility] Start: 09-03-2025 BP Controlled (<130/80) BP Controlled (<130/80) [facility] in Start: 09-01-2025 End: 09-01-2025 Patient encounter procedure 09/01/2025 10:20 AM EST Office Visit Family Medicine [facility] [address] [place] [id number] Judith Pickard, COMMERCIAL REAL ESTATE LENDER.TIER [place] [address] [place] [id number] 6 month exam [facility] Comment on above: 6 month exam Start: 08-30-2025 DIABETES SCREEN DIABETES SCREEN [facility] Start: 08-27-2025 Creatinine measurement Serum Creatinine [facility] Start: 07-23-2025 DIABETES SCREEN DIABETES SCREEN [facility] Start: 07-12-2025 End: 07-12-2025 ambulatory [facility] Comment on above: CBC/CMP/LDH 3-4MO OV/EARLY LABS Start: 07-06-2025 Annual PCP Team Chronic Disease Visit Annual PCP Team Chronic Disease Visit [facility] Start: 07-06-2025 BP Controlled (<130/80) BP Controlled (<130/80) [facility] Start: 07-02-2025 BP Controlled (<130/80) BP Controlled (<130/80) [facility] in Start: 06-27-2025 DIABETES SCREEN DIABETES SCREEN [facility] Start: 06-19-2025 DIABETES SCREEN DIABETES SCREEN [facility] Start: 06-17-2025 BP Controlled (<130/80) BP Controlled (<130/80) [facility] in Start: 05-23-2025 Influenza vaccination [facility] Start: 05-18-2025 BP Controlled (<130/80) BP Controlled (<130/80) [facility] Start: 05-11-2025 BP Controlled (<130/80) BP Controlled (<130/80) [facility] in Start: 05-03-2025 BP Controlled (<130/80) BP Controlled (<130/80) [facility] in Start: 05-01-2025 DIABETES SCREEN DIABETES SCREEN [facility] Start: 04-02-2025 [facility] Start: 04-02-2025 Annual PCP Team Chronic Disease Visit Annual PCP Team Chronic Disease Visit [facility] Start: 04-02-2025 Creatinine measurement Serum Creatinine [facility] Start: 04-01-2025 MRI of brain without contrast Brain without Contrast [facility] Start: 04-01-2025 Verification routine [facility] Start: 04-01-2025 Admission procedure [facility] Start: 04-01-2025 Hospital admission, emergency, from emergency room, medical nature [facility] Start: 04-01-2025 Oxygen therapy [facility] Start: 04-01-2025 End: 04-01-2025 [facility] Start: 03-28-2025 End: 03-28-2025 Patient encounter procedure 03/28/2025 10:40 AM EDT Office Visit Family Medicine [facility] [address] [place] [address] Gini Ayala APRN.TIER [place] [address] [place] [address] 2 week BP check [facility] Comment on above: 2 week BP check Start: 03-22-2025 End: 03-22-2025 ambulatory 03/22/2025 10:00 AM EDT Visit (SP) Office Hematology/Oncology [address] [place] [address] Asad Deras [address] [place] [address] OV/ LAB & CT 03/14 * r/s from 03/21 Hematology/Oncology Comment on above: OV/ LAB & CT 03/14 * r/s from 03/21 Start: 03-21-2025 End: 03-21-2025 ambulatory 03/21/2025 10:00 AM EDT Visit (SP) Office Hematology/Oncology [address] [place] [address] Asad Deras [address] [place] [address] OV/ LAB & CT 03/14 * Hematology/Oncology Comment on above: OV/ LAB & CT 03/14 * Start: 03-15-2025 Annual PCP Team Chronic Disease Visit Annual PCP Team Chronic Disease Visit [facility] Start: 03-15-2025 BP Controlled (<130/80) BP Controlled (<130/80) [facility] in Start: 03-15-2025 End: 06-14-2025 CBC W Auto Differential panel - Blood COMPLETE BLOOD COUNT AND DIFFERENTIAL Lab Routine B-cell lymphoma, unspecified B-cell lymphoma type, unspecified body region (HCC) Expected: 03/15/2025, Expires: 06/14/2025 [facility] Work Phone: Comment on above: Expected: 03/15/2025, Expires: Start: 03-15-2025 End: 06-14-2025 Cobalamin (Vitamin B12) [Mass/volume] in Serum or Plasma VITAMIN B12 Lab Routine Neuropathy Expected: 03/15/2025, Expires: 06/14/2025 [facility] Comment on above: Expected: 03/15/2025, Expires: Start: 03-15-2025 End: 06-14-2025 Comprehensive metabolic 2000 panel - Serum or Plasma COMPREHENSIVE METABOLIC PANEL Lab Routine Chronic kidney disease, unspecified CKD stage Expected: 03/15/2025, Expires: 06/14/2025 [facility] Comment on above: Expected: 03/15/2025, Expires: Start: 03-15-2025 Creatinine measurement Serum Creatinine [facility] Start: 03-15-2025 End: 06-14-2025 Hemoglobin A1c in Blood HEMOGLOBIN A1C Lab Routine Neuropathy Initial Medicare annual wellness visit Screening for cholesterol level Screening for diabetes mellitus Cognitive changes Mixed hyperlipidemia B-cell lymphoma, unspecified B-cell lymphoma type, unspecified body region (HCC) Debility Chronic kidney disease, unspecified CKD stage Hypothyroidism, unspecified type Spinal stenosis, lumbar region, with neurogenic claudication Expected: 03/15/2025, Expires: 06/14/2025 [facility] Comment on above: Expected: 03/15/2025, Expires: Start: 03-15-2025 End: 06-14-2025 Iron and Iron binding capacity panel - Serum or Plasma IRON AND TIBC Lab Routine B-cell lymphoma, unspecified B-cell lymphoma type, unspecified body region (HCC) Expected: 03/15/2025, Expires: 06/14/2025 [facility] Comment on above: Expected: 03/15/2025, Expires: Start: 03-15-2025 End: 06-14-2025 Lactate dehydrogenase [Enzymatic activity/volume] in Serum or Plasma LACTATE DEHYDROGENASE Lab Routine B-cell lymphoma, unspecified B-cell lymphoma type, unspecified body region (HCC) Expected: 03/15/2025, Expires: 06/14/2025 [facility] Comment on above: Expected: 03/15/2025, Expires: Start: 03-15-2025 End: 06-14-2025 LIPID PANEL, NONFASTING LIPID PANEL, NONFASTING Lab Routine Screening for cholesterol level Expected: 03/15/2025, Expires: 06/14/2025 [facility] Comment on above: Expected: 03/15/2025, Expires: Start: 03-15-2025 End: 06-14-2025 Magnesium [Mass/volume] in Serum or Plasma MAGNESIUM Lab Routine Chronic kidney disease, unspecified CKD stage Expected: 03/15/2025, Expires: 06/14/2025 [facility] Comment on above: Expected: 03/15/2025, Expires: Start: [...] with neurogenic claudication Expected: 03/15/2025, Expires: 06/14/2025 [facility] Comment on above: Expected: 03/15/2025, Expires: Start: 03-14-2025 End: 06-13-2025 Basic metabolic 2000 panel - Serum or Plasma BASIC METABOLIC PANEL Lab Routine Essential hypertension Expected: 03/14/2025, Expires: 06/13/2025 [facility] Work Phone: Comment on above: Expected: 03/14/2025, Expires: Start: 03-14-2025 End: 03-14-2025 Patient encounter procedure 03/14/2025 10:20 AM EDT Appointment Cat Scan [address] [place] [address] 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) [C82.08] Cat Scan Comment on above: Follicular lymphoma grade I of lymph nod es of multiple sites (HCC) [C82.08] Start: 03-14-2025 End: 03-14-2025 ambulatory 03/14/2025 10:00 AM EDT Results Only [facility] [place] [facility] [address] [place] [address] CBC/CMP/LDH * [facility] Comment on above: CBC/CMP/LDH * Start: 03-04-2025 Creatinine measurement Serum Creatinine [facility] Start: 03-01-2025 End: 03-01-2025 Patient encounter procedure 03/01/2025 11:20 AM EDT Office Visit Family [facility] [address] [place] [address] Judith Pickard APRN.TIER [place] [address] [place] [address] Medicare Wellness [facility] Comment on above: Medicare Wellness Start: 02-09-2025 End: 02-09-2025 Patient encounter procedure 02/09/2025 10:30 AM EDT Office Visit [facility] Ophthalmology [address] [place] [address] Franklyn Juares MD [address] [place] [address] cataracts Ophthalmology Comment on above: cataracts Start: 01-29-2025 DIABETES SCREEN DIABETES SCREEN [facility] Start: 01-20-2025 End: 01-20-2025 Patient encounter procedure 01/20/2025 10:00 AM EDT Office Visit Urology [address] [place] [facility] [place] [address] Alysha Khanna MD [address] [facility] [address] [place] [address] Urinary incontinence, unspecified type [R32] Urology Comment on above: Urinary incontinence, unspecified type [ R32] Start: 01-06-2025 Annual PCP Team Chronic Disease Visit Annual PCP Team Chronic Disease Visit [facility] Start: 01-06-2025 BP Controlled (<130/80) BP Controlled (<130/80) [facility] inic Start: 01-06-2025 Creatinine measurement Serum Creatinine [facility] Start: 01-06-2025 RSV Vaccine (1 - 1-dose 60+ series) RSV Vaccine (1 - 1-dose 60+ series) [facility] Comment on above: Postponed from 2003 (Declined at t his time) Start: 01-06-2025 RSV Vaccine (1 - 1-dose 75+ series) RSV Vaccine (1 - 1-dose 75+ series) [facility] Comment on above: Postponed from 2018 (Declined at t his time) Start: 12-28-2024 End: 12-28-2024 Patient encounter procedure 12/28/2024 4:00 PM EDT Office Visit [facility] [address] [place] [address] Sylvia Lizama MD [address] [place] [address] D/C from [facility] 12/17/24 [facility] Comment on above: D/C from [facility] 12/17/24 Start: 12-23-2024 Creatinine measurement Serum Creatinine [facility] Start: 12-14-2024 End: 12-14-2024 Patient encounter procedure [facility] Comment on above: 6 month f/u Start: 12-10-2024 End: 12-10-2024 ambulatory 12/10/2024 9:00 AM EDT Visit (SP) Office Hematology/Oncology [address] [place] [address] César Quintero DO [address] [place] [address] OV/ LAB & CT C/A/P 11/12 * Hematology/Oncology Comment on above: OV/ LAB & CT C/A/P 11/12 * Start: 12-01-2024 Patient discharge [facility] Start: 11-29-2024 Following clinical pathway protocol [facility] Start: 11-27-2024 Admission procedure [facility] Start: 11-26-2024 [facility] Start: 11-26-2024 Following clinical pathway protocol [facility] Start: 11-26-2024 Ambulation without limitation [facility] Start: 11-26-2024 Assessment of risk of venous thromboembolism [facility] Start: 11-26-2024 Insertion of catheter into peripheral vein [facility] Start: 11-26-2024 Providing care according to standard [facility] Start: 11-26-2024 Referral to occupational therapist [facility] Start: 11-26-2024 Referral to service [facility] Start: 11-26-2024 [facility] Start: 11-26-2024 Hospital admission, emergency, from emergency room, medical nature [facility] Start: 11-26-2024 Verification routine [facility] Start: 11-26-2024 Admission procedure [facility] Start: 11-26-2024 [facility] Start: 11-26-2024 End: 11-26-2024 [facility] Start: 11-26-2024 Bacteria identified in Blood by Culture Blood Culture [facility] Start: 11-19-2024 End: 11-19-2024 ambulatory Hematology/Oncology Comment on above: OV/ CT C/A/P 11/12 * Start: 11-12-2024 End: 02-11-2025 Thyrotropin [Units/volume] in Serum or Plasma THYROID STIMULATING HORMONE Lab Routine Hypothyroidism due to acquired atrophy of thyroid Expected: 11/12/2024, Expires: 02/11/2025 [facility] Work Phone: Comment on above: Expected: 11/12/2024, Expires: Start: 11-12-2024 End: 11-12-2024 Patient encounter procedure Cat Scan Comment on above: Grade 2 follicular lymphoma of lymph nod es of multiple regions (HCC) [C82.18] [facility] ER 11/06/24 for B ronchitis and a Sinus Infection x3 Weeks. Pull charts for appointment. 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] Neurology Comment on above: Disorder of labyrinth, unspecified later ality [H81.90] Start: 10-18-2024 DIABETES SCREEN DIABETES SCREEN [facility] Start: 10-08-2024 End: 10-08-2024 ambulatory [facility] Comment on above: CBC* QWK RITUXAN/C4-4/MDC R* (SO)CBC* Start: 10-01-2024 End: 10-01-2024 [facility] Comment on above: CBC* QWK RITUXAN/C4-4/MDC R* QWK RITUXAN/C3-4/MDC R* (SO)CBC* Start: 09-24-2024 End: 09-24-2024 [facility] Comment on above: CBC* QWK RITUXAN/C3-4/MDC R* - this date/time per nurse QWK RITUXAN/C2-4/MDC R* - this date/time per nurse Start: 09-23-2024 Annual PCP Team Chronic Disease Visit Annual PCP Team Chronic Disease Visit [facility] Start: 09-22-2024 Advance Directive Discussion Advance Directive Discussion [facility] Start: 09-17-2024 End: 09-17-2024 [facility] Comment on above: CBC* QWK RITUXAN/C2-4/MDC R* CBC/CMP(S)/LDH(S)/UR IC ACID(S)* START QWK RITUXAN/C1 -4/MDCR* Start: 09-10-2024 End: 09-10-2024 [facility] Comment on above: CBC/CMP(s)/LDH(S)/Uric acid(S)* START QWK RITUXAN/C1 -4/MDCR* Start: 09-03-2024 End: 12-03-2024 Chronic hepatitis differentiation between hepatitis B and C virus panel - Serum or Plasma [facility] Comment on above: Expected: 09/03/2024, Expires: Start: 09-03-2024 End: 09-03-2024 ambulatory 09/03/2024 10:10 AM EST Visit (SP) Office Hematology/Oncology [address] [place] [address] César Quintero DO [address] [place] [address] 4 MO OV/LAB&CT 08/27* Hematology/Oncology Comment on above: 4 MO OV/LAB&CT 08/27* Start: 08-27-2024 End: 08-27-2024 Patient encounter procedure Cat Scan Comment on above: Grade 2 follicular lymphoma of lymph nod es of multiple regions (HCC) [C82.18] Start: 08-27-2024 End: 08-27-2024 ambulatory 08/27/2024 10:00 AM EST Results [facility] [address] [place] [address] CBC/CMP/LDH/URIC ACID [facility] Comment on above: CBC/CMP/LDH/URIC ACID Start: 08-12-2024 End: 08-12-2024 Patient encounter procedure 08/12/2024 12:30 PM EST Appointment Radiology [address] [place] [address] Worsening headaches [R51.9] Radiology Comment on above: Worsening headaches [R51.9] Start: 07-27-2024 End: 07-27-2024 Patient encounter procedure 07/27/2024 12:45 PM EST Office Visit Neurology [address] [place] [address] Missy Hirsch PA-C [address] [place] [address] Disorder of labyrinth, 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 Ophthalmology Comment on above: Cataracts/Ocular Hypertension. Start: 07-16-2024 End: 07-16-2024 Patient encounter procedure 07/16/2024 9:20 AM EDT Office Visit Family Medicine [facility] [address] [place], [place] [id number] Judith Pickard APRN.TIER [place] [address] [place], [place] [id number] 2 week f/u [facility] Comment on above: 2 week f/u Start: 07-14-2024 End: 07-14-2024 Patient encounter procedure 07/14/2024 8:30 AM EDT Office Visit [facility] Ophthalmology [address] [place] [address] Franklyn Juares MD [address] [place] [address] Cataracts/Ocular Hypertension. Ophthalmology Comment on above: Cataracts/Ocular Hypertension. 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]; Encounter for screening mammogram for malignant neoplasm of breast [Z12.31] Mammogram Comment on above: Grade 2 follicular lymphoma of lymph nod es of multiple regions (HCC) [C82.18]; Encounter for screening mammogram for malignant neoplasm of breast [Z12.31] Start: 07-08-2024 Annual PCP Team Chronic Disease Visit Annual PCP Team Chronic Disease Visit [facility] Start: 07-08-2024 Shingrix Vaccine (1 of 2) Shingrix Vaccine (1 of 2) [facility] Comment on above: Postponed from 1962 (Declined at t his time) Start: 07-02-2024 End: 07-02-2024 Patient encounter procedure 07/02/2024 11:40 AM EDT Office Visit [facility] [address] [facility] [place] [address] Judith Pickard APRN.TIER [place] [address] [facility] [place] [address] hearing noses/different than the ringing in the ears/top of head is [id number] phone encounter) Family Medicine [facility] Comment on above: hearing noses/different than the ringing in the ears/top of head is [id number] phone encounter) Start: 06-17-2024 End: 06-17-2024 Patient encounter procedure 06/17/2024 11:20 AM EDT Office Visit [facility] [address] [facility] [place] [address] Judith Pickard [employer] L[employer]ER.TIER [place] [address] [place] [address] Blood pressure follow up [facility] Comment on above: Blood pressure follow up Start: 06-13-2024 BP Controlled (<130/80) BP Controlled (<130/80) [facility] Start: 06-13-2024 Creatinine measurement Serum Creatinine [facility] Start: 06-13-2024 Serum Creatinine Serum Creatinine [facility] Start: 06-06-2024 Serum Creatinine Serum Creatinine [facility] Start: 05-23-2024 Influenza vaccination [facility] Start: 05-04-2024 End: 05-04-2024 ambulatory 05/04/2024 1:15 PM EDT OT/PT/Speech Visit [facility] Physical Therapy [address] [place] [address] Yariel Bustillo, PT [address] [place] [address] BPPV (benign paroxysmal positional vertigo), unspecified laterality [H81.10] [facility] Physical Therapy Comment on above: BPPV (benign paroxysmal positional verti go), unspecified laterality [H81.10] Start: 05-03-2024 End: 05-03-2024 Patient encounter procedure 05/03/2024 10:40 AM EDT Office Visit Family [facility] [address] [place], [place] [id number] Judith Pickard, COMM[employer] L[employer]ER.TIER [place] [address] [place] [address] 4 week follow up [facility] Comment on above: 4 week follow up Start: 04-29-2024 End: 04-29-2024 Patient encounter procedure Ambulatory Surgery Start: 04-26-2024 End: 07-26-2024 Lactate dehydrogenase [Enzymatic activity/volume] in Serum or Plasma LACTATE DEHYDROGENASE Lab Routine 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) Expected: 04/26/2024, Expires: 07/26/2024 [facility] Comment on above: Expected: 04/26/2024, Expires: Start: 04-26-2024 End: 07-26-2024 Urate [Mass/volume] in Serum or Plasma URIC ACID Lab Routine 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) Expected: 04/26/2024, Expires: 07/26/2024 [facility] Comment on above: Expected: 04/26/2024, Expires: 4 Start: 04-17-2024 ANNUAL PCP TEAM CHRONIC DISEASE VISIT ANNUAL PCP TEAM CHRONIC DISEASE VISIT [facility] Start: 04-15-2024 End: 04-15-2024 Patient encounter procedure [...] the abdomen Expected: 04/08/2024 (Approximate), Expires: 07/08/2024 [facility] Comment on above: Expected: 04/08/2024 (Approximate), Expi res: 07/08/2024 Start: 04-03-2024 ANNUAL PCP TEAM CHRONIC DISEASE VISIT ANNUAL PCP TEAM CHRONIC DISEASE VISIT [facility] Start: 04-03-2024 BP CONTROLLED (<130/80) BP CONTROLLED (<130/80) [facility] in Start: 04-02-2024 End: 04-02-2024 ambulatory 04/02/2024 3:15 PM EDT Results Only [facility] [address] [facility] [place] [address] Essential hypertension; 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); Enlarged lymph nodes; Abnormal CT of the abdomen; Hypertensive urgency [facility] Comment on above: Essential hypertension; 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); Enlarged lymph nodes; Abnormal CT of the abdomen; Hypertensive urgency Start: 04-02-2024 End: 04-02-2024 Patient encounter procedure 04/02/2024 2:20 PM EDT Office Visit Family Medicine [facility] [address] [place] [address] Sylvia Lizama MD [address] [place] [address] [facility] Follow Up [facility] Comment on above: [facility] Follow Up Start: 03-31-2024 End: 03-31-2024 ambulatory 03/31/2024 1:00 PM EDT Visit (SP) Office [facility] [address] [place] [address] Shiv Shea MD [address] [place] [address] Urinary incontinence without sensory awareness [N39.42] [facility] Comment on above: Urinary incontinence without sensory kareem reness [N39.42] Start: 03-29-2024 End: 03-29-2024 Patient encounter procedure 03/29/2024 2:15 PM EDT Office Visit General Surgery [address] [place] [address] Zeny Crowder MD [address] [place] [id number] Diarrhea, unspecified type [R19.7] General Surgery Comment on above: Diarrhea, unspecified type [R19.7] Start: 03-24-2024 ANNUAL PCP TEAM CHRONIC DISEASE VISIT ANNUAL PCP TEAM CHRONIC DISEASE VISIT [facility] Start: 03-24-2024 BP CONTROLLED (<130/80) BP CONTROLLED (<130/80) [facility] Start: 03-21-2024 Influenza vaccination Influenza Vaccine (#1) [facility] Comment on above: Postponed from 05/23/2023 (Declined at t his time) Start: 03-18-2024 End: 03-18-2024 Patient encounter procedure 03/18/2024 11:00 AM EDT Office Visit Family [facility] [address] [facility] [place] [address] Judith Pickard APRN.GRADUATE RESEARCH ASSISTANT [address] [place] [address] 6 week medication f/u [facility] Comment on above: 6 week medication f/u Start: 03-15-2024 End: 06-14-2024 C reactive protein [Mass/volume] in Serum or Plasma [facility] Comment on above: Expected: 03/15/2024, Expires: Start: 03-15-2024 End: 06-14-2024 Calprotectin [Mass/mass] in Stool CALPROTECTIN,FECAL Lab Routine Diarrhea, unspecified type Expected: 03/15/2024, Expires: 06/14/2024 [facility] Comment on above: Expected: 03/15/2024, Expires: Start: 03-15-2024 End: 06-14-2024 Clostridioides difficile toxin genes [Presence] in Stool by ANALI with probe detection C. DIFFICILE PCR Lab Routine Diarrhea, unspecified type Expected: 03/15/2024, Expires: 06/14/2024 [facility] Comment on above: Expected: 03/15/2024, Expires: Start: 03-15-2024 End: 06-14-2024 Comprehensive metabolic 2000 panel - Serum or Plasma [facility] Work Phone: Comment on above: Expected: 03/15/2024, Expires: Start: 03-15-2024 End: 03-15-2025 ENTERIC BACTERIAL PANEL BY PCR ENTERIC BACTERIAL PANEL BY PCR Lab Routine Diarrhea, unspecified type Expected: 03/15/2024, Expires: 03/15/2025 [facility] Comment on above: Expected: 03/15/2024, Expires: Start: 03-15-2024 End: 06-14-2024 FECAL LACTOFERRIN/LEUKOCYTES FECAL LACTOFERRIN/LEUKOCYTES Lab Routine Diarrhea, unspecified type Expected: 03/15/2024, Expires: 06/14/2024 [facility] Comment on above: Expected: 03/15/2024, Expires: Start: 03-15-2024 End: 06-14-2024 Giardia lamblia+Cryptosporidium sp Ag [Presence] in Stool by Immunoassay CRYPTOSPORIDIUM AND GIARDIA ANTIGENS BY EIA Microbiology Routine Diarrhea, unspecified type Expected: 03/15/2024, Expires: 06/14/2024 [facility] Comment on above: Expected: 03/15/2024, Expires: Start: 03-15-2024 End: 03-15-2025 Norovirus Ag [Presence] in Stool NOROVIRUS GROUP 1 AND 2 Lab Routine Diarrhea, unspecified type Expected: 03/15/2024, Expires: 03/15/2025 [facility] Comment on above: Expected: 03/15/2024, Expires: Start: 03-15-2024 End: 06-14-2024 Rotavirus Ag [Presence] in Stool by Immunoassay ROTAVIRUS AG BY EIA Microbiology Routine Diarrhea, unspecified type Expected: 03/15/2024, Expires: 06/14/2024 [facility] Comment on above: Expected: 03/15/2024, Expires: Start: 03-15-2024 End: 06-14-2024 Thyrotropin [Units/volume] in Serum or Plasma [facility] Comment on above: Expected: 03/15/2024, Expires: Start: 03-15-2024 End: 06-14-2024 Thyroxine (T4) free [Mass/volume] in Serum or Plasma [facility] Comment on above: Expected: 03/15/2024, Expires: Start: 03-04-2024 End: 06-03-2024 Bacteria identified in Urine by Culture [facility] Work Phone: Comment on above: Expected: 03/04/2024, Expires: Start: 03-04-2024 End: 06-03-2024 Cobalamin (Vitamin B12) [Mass/volume] in Serum or Plasma [facility] Comment on above: Expected: 03/04/2024, Expires: Start: 03-04-2024 End: 06-03-2024 Comprehensive metabolic 2000 panel - Serum or Plasma [facility] Comment on above: Expected: 03/04/2024, Expires: Start: 03-04-2024 End: 06-03-2024 Magnesium [Mass/volume] in Serum or Plasma [facility] Comment on above: Expected: 03/04/2024, Expires: Start: 03-04-2024 End: 03-04-2024 Patient encounter procedure 03/04/2024 11:20 AM EDT Office Visit [facility] [address] [place], [place] [id number] Judith Pickard APRN.GRADUATE RESEARCH ASSISTANT [address] [place] [address] Diarrhea. See triage. [facility] Comment on above: Diarrhea. See triage. Start: 03-02-2024 End: 03-02-2024 Patient encounter procedure 03/02/2024 9:30 AM EDT Office Visit [facility] [address] [place] [address] Franklyn Juares MD [address] [id number] [facility] Comment on above: Cataracts Start: 02-19-2024 End: 02-19-2024 Patient encounter procedure 02/19/2024 1:30 PM EDT Office Visit OB/Gynecology [address] [place] [address] Shaila Rincon APRN.TIER [place] [address] [place] [address] incontinence OB/Gynecology Comment on above: incontinence Start: 02-12-2024 ANNUAL PCP TEAM CHRONIC DISEASE VISIT ANNUAL PCP TEAM CHRONIC DISEASE VISIT [facility] Start: 02-12-2024 SERUM CREATININE SERUM CREATININE [facility] Start: 02-05-2024 End: 02-05-2024 Patient encounter procedure 02/05/2024 11:00 AM EDT Office Visit Family Medicine [facility] [address] [place] [address] Judith Pickard APRN.GRADUATE RESEARCH ASSISTANT [address] [place] [address] 4 week follow up Family Medicine [facility] Comment on above: 4 week follow up Start: 01-07-2024 End: 04-07-2024 CBC W Auto Differential panel - Blood COMPLETE BLOOD COUNT AND DIFFERENTIAL Lab Routine Essential hypertension Expected: 01/07/2024, Expires: 04/07/2024 [facility] Work Phone: Comment on above: Expected: 01/07/2024, Expires: 4 Start: 01-07-2024 End: 04-07-2024 T4/FTI/T4U [facility] Work Phone: Comment on above: Expected: 01/07/2024, Expires: 4 Start: 01-07-2024 End: 04-07-2024 Thyrotropin [Units/volume] in Serum or Plasma [facility] Work Phone: Comment on above: Expected: 01/07/2024, Expires: Start: 01-02-2024 End: 04-02-2024 CBC W Auto Differential panel - Blood COMPLETE BLOOD COUNT AND DIFFERENTIAL Lab STAT 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) Expected: 01/02/2024, Expires: 04/02/2024 [facility] Work Phone: Comment on above: Expected: 01/02/2024, Expires: 4 Start: 01-02-2024 End: 04-02-2024 Comprehensive metabolic 2000 panel - Serum or Plasma COMPREHENSIVE METABOLIC PANEL Lab STAT 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) Expected: 01/02/2024, Expires: 04/02/2024 [facility] Work Phone: Comment on above: Expected: 01/02/2024, Expires: Start: 01-02-2024 End: 04-02-2024 Lactate dehydrogenase [Enzymatic activity/volume] in Serum or Plasma LACTATE DEHYDROGENASE Lab STAT 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) Expected: 01/02/2024, Expires: 04/02/2024 [facility] Work Phone: Comment on above: Expected: 01/02/2024, Expires: 4 Start: 12-31-2023 SERUM CREATININE SERUM CREATININE [facility] Start: 12-26-2023 ANNUAL PCP TEAM CHRONIC DISEASE VISIT ANNUAL PCP TEAM CHRONIC DISEASE VISIT [facility] Start: 12-18-2023 BP CONTROLLED (<130/80) BP CONTROLLED (<130/80) [facility] Start: 12-10-2023 ANNUAL PCP TEAM CHRONIC DISEASE VISIT ANNUAL PCP TEAM CHRONIC DISEASE VISIT [facility] Start: 11-28-2023 ANNUAL PCP TEAM CHRONIC DISEASE VISIT ANNUAL PCP TEAM CHRONIC DISEASE VISIT [facility] Start: 11-26-2023 BP CONTROLLED (<130/80) BP CONTROLLED (<130/80) [facility] Start: 11-26-2023 SERUM CREATININE SERUM CREATININE [facility] Start: 11-07-2023 ANNUAL PCP TEAM CHRONIC DISEASE VISIT ANNUAL PCP TEAM CHRONIC DISEASE VISIT [facility] Start: 10-28-2023 SERUM CREATININE SERUM CREATININE [facility] Start: 09-24-2023 SERUM CREATININE SERUM CREATININE [facility] Start: 09-22-2023 Advance Directive Discussion Advance Directive Discussion [facility] Start: 08-30-2023 SERUM CREATININE SERUM CREATININE [facility] Start: 07-23-2023 BP CONTROLLED (<130/80) BP CONTROLLED (<130/80) [facility] Start: 07-23-2023 SERUM CREATININE SERUM CREATININE [facility] Start: 07-08-2023 RSV Vaccine (1 - 1-dose 60+ series) RSV Vaccine (1 - 1-dose 60+ series) [facility] Comment on above: Postponed from 2003 (Declined at t his time) Start: 06-27-2023 SERUM CREATININE SERUM CREATININE [facility] Start: 06-19-2023 BP CONTROLLED (<130/80) BP CONTROLLED (<130/80) [facility] Start: 06-19-2023 End: 08-19-2023 CBC W Auto Differential panel - Blood CBC + DIFF Lab Routine 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) Expected: 06/19/2023, Expires: 08/19/2023 [facility] Work Phone: Comment on above: Expected: 06/19/2023, Expires: 3 Start: 06-19-2023 End: 08-19-2023 Comprehensive metabolic 2000 panel - Serum or Plasma COMP METABOLIC PANEL Lab Routine 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) Expected: 06/19/2023, Expires: 08/19/2023 [facility] Work Phone: Comment on above: Expected: 06/19/2023, Expires: 3 Start: 06-19-2023 End: 01-16-2024 Ct abdomen & pelvis w/o contrast material CT ABD/PEL WO IVCON Radiology Routine 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) Expected: 06/19/2023, Expires: 01/16/2024 [facility] Work Phone: Comment on above: Expected: 06/19/2023, Expires: 4 Start: 06-19-2023 End: 01-16-2024 Ct thorax w/o contrast material CT CHEST WO IVCON Radiology Routine 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) Expected: 06/19/2023, Expires: 01/16/2024 [facility] Work Phone: Comment on above: Expected: 06/19/2023, Expires: 4 Start: 06-19-2023 SERUM CREATININE SERUM CREATININE [facility] Start: 05-31-2023 BP CONTROLLED (<130/80) BP CONTROLLED (<130/80) [facility] Start: 05-23-2023 Influenza vaccination [facility] Start: 05-22-2023 BP CONTROLLED (<130/80) BP CONTROLLED (<130/80) [facility] Start: 05-07-2023 BP CONTROLLED (<130/80) BP CONTROLLED (<130/80) [facility] Start: 05-04-2023 End: 07-04-2023 Lipid 1996 panel - Serum or Plasma LIPID PANEL BASIC Lab Routine Mixed hyperlipidemia Expected: 05/04/2023, Expires: 07/04/2023 [facility] Work Phone: Comment on above: Expected: 05/04/2023, Expires: 3 Start: 05-01-2023 SERUM CREATININE SERUM CREATININE [facility] Start: 04-22-2023 ANNUAL PCP TEAM CHRONIC DISEASE VISIT ANNUAL PCP TEAM CHRONIC DISEASE VISIT [facility] Start: 01-29-2023 BP CONTROLLED (<130/80) BP CONTROLLED (<130/80) [facility] Start: 12-02-2022 End: 12-25-2023 Ct abdomen & pelvis w/o contrast material CT ABD/PEL WO IVCON Radiology Routine 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) Expected: 12/02/2022, Expires: 12/25/2023 [facility] Work Phone: Comment on above: Expected: 12/02/2022, Expires: 4 Start: 12-02-2022 End: 12-25-2023 Ct thorax w/o contrast material CT CHEST WO IVCON Radiology Routine 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) Expected: 12/02/2022, Expires: 12/25/2023 [facility] Work Phone: Comment on above: Expected: 12/02/2022, Expires: 4 Start: 11-27-2022 End: 01-27-2023 Bacteria identified in Urine by Culture [facility] Work Phone: Comment on above: Expected: 11/27/2022, Expires: 3 Start: 11-27-2022 End: 01-27-2023 Urinalysis complete panel - Urine [facility] Work Phone: Comment on above: Expected: 11/27/2022, Expires: 3 Start: 10-16-2022 ANNUAL PCP TEAM CHRONIC DISEASE VISIT ANNUAL PCP TEAM CHRONIC DISEASE VISIT [facility] Start: 09-22-2022 ADVANCE DIRECTIVE DISCUSSION ADVANCE DIRECTIVE DISCUSSION [facility] Start: 08-04-2022 Patient discharge [facility] Work Phone: Start: 08-02-2022 Incentive spirometry [facility] Work Phone: Start: 08-02-2022 [facility] Work Phone: Start: 08-02-2022 Following clinical pathway protocol [facility] Work Phone: Start: 08-02-2022 Maintenance of drainage tube [facility] Work Phone: Start: 08-01-2022 End: 10-01-2022 SARS-CoV-2 (COVID-19) RNA [Presence] in Respiratory specimen by ANALI with probe detection PRE-PROCEDURE & PRE-OPERATIVE COVID Microbiology Routine Encounter for prophylactic measures, unspecified Expected: 08/01/2022, Expires: 10/01/2022 [facility] Work Phone: Comment on above: Expected: 08/01/2022, Expires: 3 Start: 08-01-2022 Admission procedure [facility] Work Phone: Start: 07-30-2022 Application of intermittent pneumatic compression device [facility] Work Phone: Start: 07-30-2022 Assessment of risk of venous thromboembolism [facility] Work Phone: Start: 07-30-2022 Insertion of catheter into peripheral vein [facility] Work Phone: Start: 07-30-2022 Providing care according to standard [facility] Work Phone: Start: 07-30-2022 Provision of activity privileges [facility] Work Phone: Start: 07-30-2022 Referral to general surgeon [facility] Work Phone: Start: 07-30-2022 Referral to occupational therapist [facility] Work Phone: Start: 07-30-2022 Referral to service [facility] Work Phone: Start: 07-30-2022 [facility] Work Phone: Start: 07-30-2022 Referral to occupational therapist [facility] Work Phone: Start: 07-30-2022 Referral to service [facility] Work Phone: Start: 07-30-2022 Catheterization of vein [facility] Work Phone: Start: 07-30-2022 Vital signs measurements [place] Work Phone: Start: 07-30-2022 End: 07-30-2022 Venous catheter care management [facility] Work Phone: Start: 05-23-2022 Influenza vaccination [facility] Start: 05-01-2022 End: 02-28-2023 Ct abdomen & pelvis w/contrast material CT ABD/PEL W IVCON Radiology Routine 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) Expected: 05/01/2022, Expires: 02/28/2023 [facility] Work Phone: Comment on above: Expected: 05/01/2022, Expires: Start: 05-01-2022 End: 02-28-2023 Ct thorax w/contrast material CT CHEST W IVCON Radiology Routine 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) Expected: 05/01/2022, Expires: 02/28/2023 [facility] Work Phone: Comment on above: Expected: 05/01/2022, Expires: 3 Start: 04-22-2022 End: 06-22-2022 Basic metabolic 2000 panel - Serum or Plasma [facility] Work Phone: Comment on above: Expected: 04/22/2022, Expires: 2 Start: 04-22-2022 End: 06-22-2022 CBC W Auto Differential panel - Blood [facility] Work Phone: Comment on above: Expected: 04/22/2022, Expires: 2 Start: 04-22-2022 End: 06-22-2022 Natriuretic peptide.B prohormone N-Terminal [Mass/volume] in Serum or Plasma [facility] Work Phone: Comment on above: Expected: 04/22/2022, Expires: 2 Start: 04-22-2022 End: 06-22-2022 Thyrotropin [Units/volume] in Serum or Plasma [facility] Work Phone: Comment on above: Expected: 04/22/2022, Expires: 2 Start: 12-12-2021 End: 12-12-2021 Patient encounter procedure Appointment [facility] Work Phone: Start: 12-12-2021 End: 12-12-2021 Chiropractic consultation Pain Management consultation Non Specified [facility] Work Phone: Start: 09-22-2021 ADVANCE DIRECTIVE DISCUSSION ADVANCE DIRECTIVE DISCUSSION [facility] Start: 09-13-2021 Creatinine measurement Creatinine monitoring [employer] [place] Start: 09-13-2021 Potassium monitoring Potassium monitoring [facility] [place], [place] Start: 05-23-2021 Influenza vaccination Flu vaccine (#1) [facility] Work Phone: Start: 05-23-2020 Influenza vaccination Flu vaccine (#1) [place], [place] Start: 08-10-2019 Creatinine measurement Creatinine monitoring [place], [place] Start: 08-10-2019 Creatinine monitoring Creatinine monitoring [facility] Work Phone: Start: 08-10-2019 Potassium monitoring Potassium monitoring [facility] Work Phone: Start: 05-23-2019 Influenza vaccination Flu vaccine (#1) [facility] Work Phone: Start: 03-14-2019 Annual Wellness Visit (AWV) Annual Wellness Visit (AWV) [facility] Work Phone: Start: 2018 RSV Vaccine (1 - 1-dose 75+ series) RSV Vaccine (1 - 1-dose 75+ series) [facility] Start: 06-12-2010 PNEUMOCOCCAL: 65+ (2 - PCV) PNEUMOCOCCAL: 65+ (2 - PCV) [facility] Start: 2008 DEXA (modify frequency per FRAX score) DEXA (modify frequency per FRAX score) [facility] Work Phone: Start: 2003 RSV Vaccine (1 - 1-dose 60+ series) RSV Vaccine (1 - 1-dose 60+ series) [facility] Start: 1998 Screening for osteoporosis DEXA (modify frequency per FRAX score) [place], [place] Start: 1993 Colon cancer screen colonoscopy Colon cancer screen colonoscopy [facility] Work Phone: Start: 1993 Shingles Vaccine (1 of 2) Shingles Vaccine (1 of 2) [facility] Work Phone: Start: 1993 SHINGRIX VACCINE (1 of 2) SHINGRIX VACCINE (1 of 2) [facility] Start: 1983 Lipid screen Lipid screen [facility] Work Phone: Start: 1962 DTaP/Tdap/Td vaccine (1 - Tdap) DTaP/Tdap/Td vaccine (1 - Tdap) [place], [place] Start: 1962 SHINGRIX VACCINE (1 of 2) SHINGRIX VACCINE (1 of 2) [facility] Start: 1961 BP CONTROLLED (<130/80) BP CONTROLLED (<130/80) [facility] Start: 1955 COVID-19 Vaccine (1) COVID-19 Vaccine (1) [facility] Work Phone: Start: 1954 DTaP/Tdap/Td vaccine (1 - Tdap) DTaP/Tdap/Td vaccine (1 - Tdap) [facility] Work Phone: Start: 1943 Hepatitis C screening Hepatitis C screen [facility] [place] Bacteria identified in Urine by Culture URINE CULTURE Microbiology Routine Urinary frequency 05/13/2022 11:57 AM EDT [facility] Work Phone: Bacteria identified in Urine by Culture URINE CULTURE Microbiology Routine Urinary frequency 2023 2:58 PM EST [facility] Work Phone: Bacteria identified in Urine by Culture URINE CULTURE Microbiology Routine Urinary frequency 05/11/2024 2:42 PM EDT [facility] Work Phone: Bacteria identified in Urine by Culture URINE CULTURE Microbiology Routine Burning with urination 07/27/2024 2:42 PM EST [facility] Work Phone: Bacteria identified in Urine by Culture BACTERIAL CULTURE, URINE Microbiology Routine Burning with urination Ordered: 11/01/2024 [facility] Work Phone: Comment on above: Ordered: 11/01/2024 End: 09-13-2020 Basic metabolic 2000 panel Basic Metabolic Panel Lab STAT One Time for 1 Occurrences starting 09/13/2020 until 09/13[facility] Comment on above: One Time for 1 Occurrences starting 08/23 until 09/13/2020 Basic metabolic 2000 panel Basic Metabolic Panel Lab STAT 09/13/2020 12:43 PM EST [facility] [place] CBC W Auto Different ial panel - Blood CBC + DIFF Lab STAT 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) 02/24/2023 1:41 PM EDT [facility] Work Phone: COVID & INFLUENZA A/ B & RSV NAAT, ROUTINE COVID & INFLUENZA A/B & RSV NAAT, ROUTINE Microbiology Routine URI, acute 10/27/2023 10:17 AM EST [facility] Work Phone: COVID & INFLUENZA A/ B & RSV PCR, ROUTINE COVID & INFLUENZA A/B & RSV PCR, ROUTINE Microbiology Routine Viral URI Ordered: 11/12/2024 [facility] Comment on above: Ordered: 11/12/2024 Creatine kinase [Enzymatic activity/volume] in Serum or Plasma [facility] End: 09-29-2023 Ct abdomen & pelvis w/contrast material CT ABD/PEL W IVCON Radiology Routine 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) 1 Occurrences starting 08/30/2022 until 09/29/2023 [facility] Work Phone: Comment on above: 1 Occurrences starting 08/30/2022 until 09/29/2023 CT Abdomen and Pelvi s W contrast IV CT ABD/PEL W IVCON Radiology Routine 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) Encounter for screening mammogram for malignant neoplasm of breast 12/24/2023 12:01 PM EDT [facility] Work Phone: End: 02-06-2025 CT Abdomen and Pelvis W contrast IV CT ABD/PEL W IVCON Radiology Routine 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) Enlarged lymph nodes Abnormal CT of the abdomen 1 Occurrences starting 01/08/2024 until 02/06/2025 [facility] Work Phone: Comment on above: 1 Occurrences starting 01/08/2024 until 02/06/2025 CT Abdomen and Pelvi s W contrast IV CT ABD/PEL W IVCON Radiology Routine 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) 1 Occurrences starting 09/03/2024 until 10/03/2025 [facility] Work Phone: Comment on above: 1 Occurrences starting 09/03/2024 until 10/03/2025 CT Chest W contrast IV CT CHEST W IVCON Radiology Routine 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) 11/12/2024 2:59 PM EST [facility] Work Phone: End: 01-09-2026 CT Chest W contrast IV CT CHEST W IVCON Radiology Routine 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) 1 Occurrences starting 12/10/2024 until 01/09/2026 [facility] Comment on above: 1 Occurrences starting 12/10/2024 until 01/09/2026 CT Chest W contrast IV CT CHEST W IVCON Radiology Routine 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) 03/14/2025 11:01 AM EDT [facility] End: 09-29-2023 CT CHEST W IVCON CT CHEST W IVCON Radiology Routine 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) 1 Occurrences starting 08/30/2022 until 09/29/2023 [facility] Work Phone: Comment on above: 1 Occurrences starting 08/30/2022 until 09/29/2023 End: 09-06-2020 Culture, Urine Culture, Urine Microbiology STAT One Time for 1 Occurrences starting 09/06/2020 until 09/06/2020 [place] Comment on above: One Time for 1 Occurrences starting 08/22 until 09/06/2020 Culture, Urine [place], [place] End: 09-13-2020 Culture, Urine Culture, Urine Microbiology STAT One Time for 1 Occurrences starting 09/13/2020 until 09/13/2020 [place], [place] Comment on above: One Time for 1 Occurrences starting 08/23 until 09/13/2020 DBT Breast - bilater al screening ROXANNE SCREENING W ANTHONY Radiology Routine 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) Encounter for screening mammogram for malignant neoplasm of breast 07/09/2024 11:15 AM EDT [facility] Work Phone: End: 07-08-2024 Echocardiography ECHO Cardiology Routine Valvular heart disease 1 Occurrences starting 07/08/2023 until 07/08/2024 [facility] Work Phone: Comment on above: 1 Occurrences starting 07/08/2023 until 07/08/2024 EKG 12 Lead - Chest Pain EKG 12 Lead - Chest Pain ECG STAT 09/13/2020 12:55 PM [facility], [place] End: 03-29-2025 Flexible sigmoidoscopy study COLONOSCOPY DIAGNOSTIC Endoscopy Routine Diarrhea, unspecified type 1 Occurrences starting 03/29/2024 until 03/29/2025 [facility] Work Phone: Comment on above: 1 Occurrences starting 03/29/2024 until 03/29/2025 End: 11-27-2023 HOME SLEEP APNEA TEST (HSAT) HOME SLEEP APNEA TEST (HSAT) Procedures Routine CHRISTIANA (obstructive sleep apnea) 1 Occurrences starting 11/27/2022 until 11/27/2023 [facility] Work Phone: Comment on above: 1 Occurrences starting 11/27/2022 until 11/27/2023 End: 02-28-2023 ROXANNE SCREENING W ANTHONY ROXANNE SCREENING W ANTHONY Radiology Routine Encounter for screening mammogram for malignant neoplasm of breast 1 Occurrences starting 01/29/2022 until 02/28/2023 [facility] Work Phone: Comment on above: 1 Occurrences starting 01/29/2022 until 02/28/2023 End: 07-12-2024 ROXANNE SCREENING W ANTHONY ROXANNE SCREENING W ANTHONY Radiology Routine Encounter for screening mammogram for malignant neoplasm of breast 1 Occurrences starting 06/13/2023 until 07/12/2024 [facility] Work Phone: Comment on above: 1 Occurrences starting 06/13/2023 until 07/12/2024 End: 08-26-2025 MR Brain WO and W contrast IV MRI BRAIN WO/W IVCON Radiology Routine Worsening headaches 1 Occurrences starting 07/27/2024 until 08/26/2025 [facility] Work Phone: Comment on above: 1 Occurrences starting 07/27/2024 until 08/26/2025 End: 04-30-2021 MRI LUMBAR SPINE W WO CONTRAST MRI LUMBAR SPINE W WO CONTRAST Imaging Routine Once for 1 Occurrences starting 04/30/2021 until 04/30/2021 [facility] Work Phone: Comment on above: Once for 1 Occurrences starting 04/30/20 21 until 04/30/2021 MRI LUMBAR SPINE W W O CONTRAST [facility] Work Phone: End: 08-30-2019 MRI LUMBAR SPINE W WO CONTRAST MRI LUMBAR SPINE W WO CONTRAST Imaging Routine Once for 1 Occurrences starting 08/30/2019 until 08/30/2019 [facility] Work Phone: Comment on above: Once for 1 Occurrences starting 08/30/20 19 until 08/30/2019 Patient Education ED Bronchitis with Wheezing (Adult) ED Sinusitis (Antibiotic Treatment) [facility] Work Phone: Patient referral [facility] Work Phone: End: 05-02-2024 Radex spine cervical 4 or 5 views XR CERV OTHER 4V AP/LAT/OBL Radiology Routine Left arm pain Neck pain 1 Occurrences starting 04/03/2023 until 05/02/2024 [facility] Work Phone: Comment on above: 1 Occurrences starting 04/03/2023 until 05/02/2024 Radex spine cervical 4 or 5 views XR CERV OTHER 4V AP/LAT/OBL Radiology Routine Left arm pain Neck pain 04/03/2023 10:30 AM EDT [facility] Work Phone: Radiologic exam ches t 2 views XR CHEST 2V FRONTAL/LAT Radiology Routine SOB (shortness of breath) Bronchitis 04/22/2022 4:40 PM EDT [facility] Work Phone: SURGICAL PATHOLOGY [facility] Work Phone: Comment on above: Release Upon Ordering for 1 Occurrences starting 04/29/2024, 1 completed Troponin T.cardiac [Mass/volume] in Serum or Plasma by High sensitivity method [facility] Troponin T.cardiac [Mass/volume] in Serum or Plasma by High sensitivity method [facility] End: 09-13-2020 Troponin x1 Troponin x1 Lab STAT One Time for 1 Occurrences starting 09/13/2020 until 09/13/2020 [place], [place] Comment on above: One Time for 1 Occurrences starting 08/23 until 09/13/2020 Troponin x1 Troponin x1 Lab STAT 09/13/2020 12:43 PM ARMEN [place], [place] End: 04-03-2024 US CAROTID ARTERIES [facility] US CAROTID ARTERIES [facility] Vascular Lab Routine Bilateral carotid artery stenosis 1 Occurrences starting 04/03/2023 until 04/03/2024 [facility] Work Phone: Comment on above: 1 Occurrences starting 04/03/2023 until 04/03/2024 End: 05-02-2025 US Extremity - left US EXTREMITY MASS/FLUID COLLECTION LEFT Radiology Routine Soft tissue mass 1 Occurrences starting 04/02/2024 until 05/02/2025 [facility] Work Phone: Comment on above: 1 Occurrences starting 04/02/2024 until 05/02/2025 US Head and neck sof t tissue US HEAD/NECK SOFT TISSUE OTHER Radiology Routine Neck mass 11/07/2023 10:54 AM ARMEN [facility] Work Phone: End: 11-25-2024 US HEAD/NECK SOFT TISSUE OTHER US HEAD/NECK SOFT TISSUE OTHER Radiology Routine Neck mass 1 Occurrences starting 10/27/2023 until 11/25/2024 [facility] Work Phone: Comment on above: 1 Occurrences starting 10/27/2023 until 11/25/2024 [facility] Immunization Date Immunization Notes Care Provider Fa cili 06-11-2022 influenza, high-dose , quadrivalent vaccine (FLUZONE HIGH DOSE QUADRIVALENT) Oh Nurse Work Phone: [facility] Work Phone: 06-11-2022 pneumococcal (PCV20) vaccine, 20 valent (PREVNAR 20) Oh Nurse Work Phone: [facility] Work Phone: 06-11-2022 pneumococcal Conjuga te, unspecified formulation Oh Nurse Work Phone: [facility] Work Phone: 06-11-2022 influenza virus vacc ine, unspecified formulation César Quintero DO Work Phone: [facility] 05-22-2022 pneumococcal PCV20 vaccine (PREVNAR 20) 0.5 mL injection Chinyere Shea RN Work Phone: [facility] Work Phone: Comment on above: Inject 0.5 mL intram uscularly one time only for 1 dose. 06-23-2013 influenza virus vacc ine, unspecified formulation Sylvia Lizama MD Work Phone: [facility] 06-29-2011 influenza virus vacc ine, unspecified formulation Sylvia Lizama MD Work Phone: [facility] 12-11-2010 tetanus and diphther ia toxoids, adsorbed, preservative free, for adult use (2 Lf of tetanus toxoid and 2 Lf of diphtheria toxoid) Sylvia Lizama MD Work Phone: [facility] Work Phone: 08-07-2010 influenza virus vacc ine, unspecified formulation Sylvia Lizama MD Work Phone: [facility] 06-12-2009 influenza virus vacc ine, unspecified formulation Sylvia Lizama MD Work Phone: [facility] Work Phone: 06-12-2009 pneumococcal polysaccharide vaccine, 23 valent Sylvia Lizama MD Work Phone: [facility] Work Phone: 08-05-2008 influenza virus vacc ine, unspecified formulation Sylvia Lizama MD Work Phone: [facility] 08-22-2005 influenza virus vacc ine, unspecified formulation Sylvia Lizama MD Work Phone: [facility] Work Phone: Payers Date Payer Category Payer Self-pay [id number] 2017 Private Health Insurance [facility] MEDICARE SUPP xxxxxxxxxxx 2017-Present [phone] [address] [place] [address] xxxxxxxxxxx [id number] 2017 Private Health Insurance [facility] SUPPLEMENT [id number] 2017-Present [phone] [address] [place] [address] Indemnity [id number] 2017 Private Health Insurance [id number] 2014 Medicare [id number] 2014 Medicare MEDICARE MEDICAR E PART A AND B xxxxxxxxxx 2014-Present [phone] [address] [address] [place] [address] xxxxxxxxxx [id number] 2010 Private Health Insurance [id number] 2008 Medicare 2008 Medicare MEDICARE MEDICAR E A AND B [id number] 2008-Present [phone] [address] [address] [place] [address] Medicare [id number] 2008 Medicare [id number] .[id number] Unknown [id number] 1.13.159.2 .[id number] Unknown [id number] 2.16.840.1.230782.3.579.2 .462 Unknown [id number] 2.16.840.1.133004.3.579.2 .462 Unknown [id number] 2.16.840.1.484711.3.579.2 .462 Unknown [id number] 2.16.840.1.145840.3.579.2 .462 Unknown [id number] 2.16.840.1.706038.3.579.2 .462 Unknown [id number] 2.16.840.1.237159.3.579.2 .462 Unknown [id number] 2.16.840.1.756344.3.579.2 .462 Unknown [id number] 2.16.840.1.472869.3.579.2 .462 Unknown [id number] 2.16.840.1.366589.3.579.2 .462 Unknown [id number] 2.16.840.1.656571.3.579.2 .462 Unknown [id number] 2.16.840.1.314862.3.579.2 .462 Unknown [id number] 2.16.840.1.229572.3.579.2 .462 Unknown [id number] 2.16.840.1.370996.3.579.2 .462 Unknown [id number] 2.16.840.1.316526.3.579.2 .462 Unknown [id number] 2.16.840.1.742471.3.579.2 .462 Unknown [id number] 2.16.840.1.104026.3.579.2 .462 Unknown [id number] 2.16.840.1.449632.3.579.2 .462 Unknown [id number] 2.16.840.1.614901.3.579.2 .462 Unknown [id number] 2.16.840.1.149052.3.579.2 .462 Unknown [id number] 2.16.840.1.741912.3.579.2 .462 Social History Date Type Detail Facility Start: 10-11-2018 End: 05-07-2022 Tobacco smoking status RIIS Never smoker [facility] Start: 10-11-2018 End: 05-07-2022 Tobacco use and exposure Never used [employer] [facility] Start: 10-11-2018 End: 03-22-2025 Alcohol intake Current non-drinker of alcohol (finding) [facility] Work Phone: Start: 1945 Sex Assigned At Not on file [facility] Work Phone: Start: 07-30-2020 End: 07-23-2022 Exposure to SARS-CoV-2 (event) Not sure [employer] [facility] Start: 12-12-2021 End: 12-12-2021 Assertion Unknown if ever smoked [facility] Work Phone: Start: 10-16-2021 End: 11-14-2022 History SDOH Alcohol Frequency 1 [facility] Start: 09-26-2020 History SDOH Alcohol Std Drinks 98 [facility] Start: 09-26-2020 End: 10-16-2021 History SDOH Social Connections Phone 5 [facility] Start: 10-16-2021 End: 11-14-2022 History SDOH Social Connections Get Together 4 [facility] Start: 10-16-2021 End: 11-14-2022 History SDOH Social Connections Holiness 3 [facility] Start: 09-26-2020 End: 11-14-2022 History SDOH Physical Activity MPS 2 [facility] Start: 09-26-2020 Education 11 [facility] Start: 1945 Sex Assigned At Female [facility] Start: 09-04-2020 None [facility] Start: 09-04-2020 Alone [facility] Start: 01-22-2021 Non-smoker [facility] Start: 11-14-2022 History SDOH Alcohol Std Drinks 0 [facility] Start: 11-14-2022 End: 02-21-2023 History of Social function [facility] Start: 11-14-2022 End: 02-21-2023 Social connection and isolation panel [facility] Active Member of [facility] bs or Organizations Not on file [facility] Are you now , , , , never or living with a partner? [facility] How often to you hav e a drink containing alcohol? Never [facility] Do you feel stress - tense, restless, nervous, or anxious, or unable to sleep at night because your mind is troubled all the time - these days [OSQ] Only a little [facility] (I/We) worried wheth er (my/our) food would run out before (I/we) got money to buy more. Never true [facility] In the past 12 month s, was there a time when you were not able to pay the mortgage or rent on time? No [facility] Start: 08-07-2020 Gender identity Identifies as female gender (finding) [facility] Start: 08-07-2020 Sexual orientation Heterosexual (finding) [facility] Do you belong to any clubs or organizations such as yazidi groups, unions, fraternal or athletic groups, or school groups? Yes [facility] Do you feel stress - tense, restless, nervous, or anxious, or unable to sleep at night because your mind is troubled all the time - these days [OSQ] Not at all [facility] How hard is it for y ou to pay for the very basics like food, housing, medical care, and heating Not very hard [facility] Do you feel stress - tense, restless, nervous, or anxious, or unable to sleep at night because your mind is troubled all the time - these days [OSQ] To some extent [facility] Start: 11-26-2024 End: 12-01-2024 Sex Female (finding) [facility] Medical Equipment Procedure Code Equipment Code Equipment Origin al Text Equipment Identifier Dates Total cholecystectomy with exploration of common bile duct Ligation clip, synthetic polymer, non-bioabsorbable [id number] FDA Start: 08-02-2022 Ivc Filter Trap Ease Permanent-08/28/2018 [id number] Start: 08-28-2018 Comment on above: Description: IVC mirna ter. Right groin access. TrapEase Permanent Vena Cava Filter. Port Powerport M ri 8fr Plastic Polyurethane Implantable Infusion - [id number] Start: 06-05-2022 Goals Date Patient Goal [...] 25 11:12 AM EDT Sabrina Cavanaugh MA [facility] 12-01-2024 Functional status Ambulates [facility] Work Phone: 08-04-2022 Functional status Ambulates;Bath room Privilege [facility] Work Phone: 06-01-2021 Are you deaf, or do you have serious difficulty hearing No 06/01/2021 10:26 AM EDT Neeru Butterfield RN No [facility] 06-01-2021 Are you blind, or do you have serious difficulty seeing, even when wearing glasses No 06/01/2021 10:26 AM Neeru Ayoub, FRANCESCO No [facility] 06-01-2021 Do you have serious difficulty walking or climbing stairs No 06/01/2021 10:26 AM Neeru Ayoub, FRANCESCO No [facility] 06-01-2021 Do you have difficul ty dressing or bathing No 06/01/2021 10:26 AM Neeru Ayoub, FRANCESCO No [facility] 06-01-2021 Because of a physica l, mental, or emotional condition, do you have difficulty doing errands alone such as visiting a physician's office or shopping No 06/01/2021 10:26 AM Neeru Ayoub, FRANCESCO No [facility] Mental Status Date Assessment Result Facility 04-01-2025 Cognitive function Level Of Cons ciousness Awake;Alert;Appropriate;Fol lows Commands [facility] Work Phone: 12-01-2024 Cognitive function Voice/Name [facility] Work Phone: 11-06-2024 Cognitive function Level Of Cons ciousness Awake;Alert;Appropriate;Fol lows Commands [facility] Work Phone: 08-04-2022 Cognitive function Voice/Name [facility] Work Phone: 06-01-2021 Because of a physica l, mental, or emotional condition, do you have serious difficulty concentrating, remembering, or making decisions No 06/01/2021 10:26 AM Neeru Ayoub, FRANCESCO No [facility] Clinical Notes 08-30-2020 to 04-01-2025 Note Date & Type Note Facility 04-01-2025 History and physi tami note [facility] 04-01-2025 Discharge summary [facility] 04-01-2025 Radiology Diagnostic study note [facility] Imaging Services [address] [place], [place] [id number] STROKE CTA Head AND Neck W/Con MR#: [id number] Acct: [id number] Name: LISA UP Rep #: [id number] : 1945 F 79 From: [facility] richar Redman MD PCP: Dr. Sylvia Lizama MD Status: REG E R Study:STROKE CTA Head AND Neck W/Con Date of Exam: 04/01/25 Exam# [id number] Ordering Dr: Xenia Jones MD PROCEDURE: STROKE [...] loss and chronic microangiopathic changes. Reading Location: [facility] CC: Dr. Chase Jones MD; Dr. Sylvia Lizama MD ~ Oxyhydrogen Welder: Signed [facility] 04-01-2025 Discharge summary Note Date/Time April 01, 2025 5:05pm [facility] Medical Records Department [address] [place] [address] Emergency Department Summary 04/01/25 MR#: [id number] Acct: [id number] Name: LISA UP Rep #:[id number] : 1945 79 From: Chase Jones MD [...] vaccine, mRNA, Allergy Anaphylaxis Verified 04/01/25 12:34 [id number], erythromycin base Allergy Rash Verified 04/01/25 12:34 [...] dysmetria right upper extremity and problems with lfsb-xl-ueaw the heel on the right concern patient [...] % (Auto) 62.6 Lymph % (Auto) 23.5 Centre % (Auto) 9.6 Eos % (Auto) 3.9 [...] loss and chronic microangiopathic changes. Reading Location: [id number] Patient and daughter were informed of results. Hospitalist was paged EKG Initial EKG: Attestation: I personally reviewed and interpreted this EKG as follows: Interpretation: Sinus Rhythm (Rate is 65. EKG is normal. IA interval is 184 ms. Cures duration 90 ms. QT duration 414 ms. Dennison is normal.) Management Discussion w/another healthcare provider: [...] MD [Primary Care Provider] - Print Language: Beninese Disposition Disposition: Acute Care Hospital [facility] NIHSS NIHSS 1a. Level of Consciousness: 1 [...] and left side.) 8. Sensory: 1 - Zmbu-pk-ozivboxi sensory loss; (Altered sensation right lower extremity [...] your Primary Care Provider. Call [facility] ([phone]) or report to the closest Emergency Room. Call 911 if necessary. 04/01/251704 <Electronically signed by Chase Jones MD> Cosigner Signature (if applicable): CC: Dr. Sylvia Lizama MD ~ Signed [facility] Work Phone: 1(839) 362-495107-11-2025 Telephone encounter Note* Telephone Encounter - Yarely [...] daughter, she will go to ER (probably [facility] or maybe [place]). Daughter to call back if any follow up is needed after evaluation. Nothing further needed. Closing TE. Yarely Lee RN [facility]07-11-2025 Miscellaneous Notes* Telephone Encounter - Yarely Lee [...] daughter, she will go to ER (probably [facility] or maybe [place]). Daughter to call back if any follow up is needed after evaluation. Nothing further needed. Closing TE. Yarely Lee RN documented in this encounterMer[facility]07-01-[facility] History of Present illness Narrative* Asad Deras [...] that 15% of total events have the AL62ccv side scatter properties of lymphocytes. Interpretation: The [...] Rash, GI Upset Urticarial rash, seen in [place] ER Latex Swelling Lisinopril Swelling Nafcillin Itching [...] Heart Father other (Other) Father Heart Brother [place], aneurysm Migraines Daughter Macular Degen Maternal Aunt [...] with any questions or concerns. Asad Deras APRN.TIER IN I spent a total of 30 minutes on the date of the service which included preparing to see the patient, lwpv-ep-mrgl patient care, completing clinical documentation, obtaining and/or [...] evaluation of this patient. documented in this encounterMer[facility]06-23-[facility]25 Instructions* Patient Instructions* Gini Ayala APRN.TIER IN - 03/14/2025 3:33 PM EDT - Start [...] talking during the measurement. documented in this encounterMercer [facility] Hospital06-23-2025 History of Present illness Narrative* Gini Ayala [...] N/A 12/04/2016 ESOPHAGOGASTRODUODENOSCOPY TRANSORAL DIAGNOSTIC N/A 12/04/2016 DAWN FILTER 2019 INSJ TUNNELED CTR VAD W/SUBQ PORT AGE 5 YR/> 06/05/2022 JOINT REPLACEMENT HX L'SCOPE CHOLECYSTECTOMY 07[facility]20[facility] 1986 Nephrectomy, partial left (benign) PAST SURGICAL HISTORY OF 06/2018 lumbar burger with wound infection TONSILLECTOMY HX TOTAL ABDOMINAL HYSTERECT W/WO RMVL TUBE OVARY 1986 Hysterectomy, NEISHA VAGINAL HYSTERECTOMY ALLERGIES Covid-19 Vaccine, Mrna, [id number], Lnp-S (Moderna); Adhesive; Erythromycin; Latex; Lisinopril; Nafcillin; [...] Heart Father other (Other) Father Heart Brother [place], aneurysm Migraines Daughter Macular Degen Maternal Aunt [...] worsening/no improvement. Gini Ayala APRN.CNP Recording using SYLOB software for draft documentation of the visit was discussed with the patient/authorized field marketing representative; all questions welcomed and answered. Patient/authorized field marketing representative agreed to proceed documented in this encounterMercer [facility] Hospital06-10-2025 Instructions* Patient Instructions* Judith Pickard APRN.CNP - [...] review all the medicines you take, even vobd-uyd-fadwucd medicines. As you get older, the way [...] have certain medical conditions. documented in this encounterMercer [facility] Hospital06-10-2025 History of Present illness Narrative* Judith Pickard [...] and Rehab) Chinyere Shea, FRANCESCO as Specialty Immigration Officer (Hematology/Oncology) Enid Rod LISW as Registered Nurse Surgical Services (Hematology/Oncology) Prince Fang MD (Hematology/Oncology) Ctr[facility] (Inactive) (Optometry) Gini Ayala APRN.LEONCIO as Slip Maker (Family Medicine) Judith Pickard APRN.LEONCIO as Slip Maker (Family Medicine) Concerns today: Legs swell and [...] hospital stays. - Required rehabilitation in a fci after the second fall. 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 - Discussed the importance of [...] Personalized prevention plan provided documented in this encounterMercer [facility] Hospital06-05-2025 History of Present illness Narrative* Harini Martinez [...] 24, 2025 11:47 AM documented in this encounterMercer County Community Hospital04-08-2025 History of Present illness Narrative* Sylvia Lizama MD - 12/28/2024 3:51 PM EDT Patient presents with: Hospital F/U HPI: Patient [facility]. In [facility] 11/27-12/01 and then in [facility] from 12/01 [...] Rash, GI Upset Urticarial rash, seen in [place] ER Latex Swelling Lisinopril Swelling Nafcillin Itching [...] Heart Father other (Other) Father Heart Brother [place], aneurysm Migraines Daughter Macular Degen Maternal Aunt [...] - ICD9: 202.80,ICD10: C85.10 - per Dr Quintreo. 8. Grade 2 follicular lymphoma of lymph [...] urology Sylvia Lizama MD documented in this encounterMercer County [facility] Hospital04-03-2025 Telephone encounter Note * Telephone Encounter - Mercy Mendez RN - 12/23/2024 11:22 AM EDT Phoned pt and scheduled [facility] f/u appt for 12/28/24 w/Dr. Lizama. [facility]04-03-2025 Miscellaneous Notes* Telephone Encounter - Mercy Mendez RN - 12/23/2024 11:22 AM EDT Phoned pt and scheduled [facility] f/u appt for 12/28/24 w/Dr. Lizama. * Telephone Encounter - Talia Silver LPN - 12/20/2024 11:27 AM EDT Printed her discharge paperwork from [facility] for review. * Telephone Encounter - Mercy [...] liquids. Pt reports she was discharged from [facility] on 12/17/24. Reports she was there for 2 weeks for rehab, for weakness. Reports she spent 2 weeks in [facility] prior to that. States she is not really sure how long she was at [facility]. Reports she was admitted to [facility] for covid and UTI. Attempted to do [...] f/u appt for TCM. documented in this encounterMercer County Community Hospital03-31-2025 Telephone encounter Note * Telephone Encounter - Talia Silver LPN - 12/20/2024 11:27 AM EDT Printed her discharge paperwork from [facility] for review. [facility]03-[facility] Telephone encounter Note* Telephone Encounter - Mercy [...] liquids. Pt reports she was discharged from [facility] on 12/17/24. Reports she was there for 2 weeks for rehab, for weakness. Reports she spent 2 weeks in [facility] prior to that. States she is not really sure how long she was at [facility] [facility]. Reports she was admitted to [facility] for covid and UTI. Attempted to do [...] to schedule Hosp f/u appt for TCM. [facility]03-31-2025 History of Present illness Narrative* Mercy Mendez RN - 12/20/2024 8:34 AM EDT TRANSITION CARE MANAGEMENT (TCM) INITIAL CONTACT Overhead Irrigator Outreach Provider Action/FYI: Pt was in [facility] for 2 weeks, then discharged to [facility] (on 12/01/24) and was there for 2 weeks. Pt unsure of the dates, and unsure how long she was in [facility]. States she will ask her daughter and call back. Pt states she will schedule f/u appt after she talks to her daughter. Initial contact with patient post discharge, spoke to patient. Patient identified by name and . TRANSITION CARE MANAGEMENT INITIAL OUTREACH DOCUMENTATION: 12/20/2024 Date of Outreach: Outreach Attempt 1: Contact Made Date of Discharge 12/17/2024 SUMMARY: -Pt discharged from [facility] on 12/17/24. -Admitted for: Rehab- weakness. Do [...] Medical records from recent hospitalization: Office printed [facility] discharge paperwork. documented in this [facility] History of Present illness Narrative* César Quintero [...] that 15% of total events have the CY24nuj side scatter properties of lymphocytes. Interpretation: The [...] N/A 12/04/2016 ESOPHAGOGASTRODUODENOSCOPY TRANSORAL DIAGNOSTIC N/A 12/04/2016 DAWN FILTER 2019 INSJ TUNNELED CTR VAD W/SUBQ [...] Rash, GI Upset Urticarial rash, seen in [facility] Latex Swelling Lisinopril Swelling Nafcillin Itching [...] Heart Father other (Other) Father Heart Brother [place], aneurysm Migraines Daughter Macular Degen Maternal Aunt [...] likely caused by adenopathy. -Reviewed CT findings. IA with resolution hydronephrosis. -Discussed plan to monitor with CTs in about 3-4 months. -Can retreat with rituximab if PD and indication for therapy. Plan: -CBC/CMP/LDH CTs then OV with VEGETABLE WASHER in about 3-4 months. Portions of this documentation were copied and pasted from my previous office visit note dated 09/03/2024 in order to provide a cohesive continuity of the history. The note has been reviewed and edited and updated as necessary. César Quintero DO documented in this encounterMer[facility] History of Present illness Narrative* Helen Corey MA - 12/08/2024 1:11 PM EDT POPULATION HEALTH NAVIGATION OUTREACH Action/FYI Spoke to Lisa. She at [facility] for COVID and UTI,. Topic Due [...] navigator back HCC related pt is at [facility] Navigation Signature: Helen Corey MA December 08, 2024 1:11 PM documented in this encounterMercer [facility]03-12-2025 [facility] Medical Records Department [address] [place] [address] Discharge Summary 12/01/24 1550 MR#: [id number] Acct: [id number] Name: LISA UP Rep #: [id number] : 1945 79 From: Kenyon Joienr MD PCP: Dr. Sylvia Lizama MD Status:DIS IN [facility] Providers Date of Admission: 11/27/24 Primary Care [...] Course: Per HPI: LISA UP, is a 79 F who presented to [facility] ED on 11/26/2024 with weakness and [...] the risk benefits of going to the [facility] and is okay with going today. 2. [...] does not need t (more content not included)...[facility]03-12-2025 Consult note [facility] Medical Records Department [address] [place] [address] Counseling Note - Pharmacy 12/01/24 1334 MR#: [id number] Acct: [id number] Name: LISA UP Rep #:[id number] : 1945 79 From: Harmony Rushing PCP: Dr. Sylvia Lizama MD Status:ADM I N Y Location: [place] [address] Pharmacy [place] Med Reconciliation Pharmacy Service has performed discharge [...] Signature (if applicable): Date CC: ~ Signed [facility]03-12-2025 Consult note Author Harmony Rushing [facility] Note Date/Time December 01, 2024 3:4 5pm [facility] Medical Records Department [address] [place] [address] Counseling Note - Pharmacy 12/01/24 1334 MR#: [id number] Acct: [id number] Name: LISA UP Rep #:[id number] : 1945 79 From: Harmony Rushing PCP: Dr. Sylvia Lizama MD Status:ADM I N Y Location: [place] [address] Pharmacy [place] Med Reconciliation Pharmacy Service has performed discharge [...] Signature (if applicable): Date CC: ~ Signed [facility] Work Phone: 1(707) 664-321003-12-2025 Discharge summary Author Kenyon Joiner [facility] Note Date/Time December 01, 2024 12: 00pm [facility] Medical Records Department [address] [place] [address] Transfer to [facility] MR#: [id number] Acct: [id number] Name: LISA UP Rep #:[id number] : 1945 79 From: Kenyon reese MD PCP: Dr. Sylvia Lizama MD Status:ADM I N Certification of patient admission REQUIRED AT TIME OF ADMISSION. I CERTIFY THAT POST-HOSPITAL ECF SERVICES ARE REQUIRED TO BE GIVEN ON AN IN-PATIENT BASIS BECAUSE OF THE ABOVE NAMED PATIENT'S NEED FOR CORRECTION CARE ON A CONTINUING BASIS FOR THE [...] Done in Hospital Allergies COVID-19 vaccine, mRNA, [id number], Allergy (Verified 11/26/24 11:17) Anaphylaxis erythromycin base [...] in before D/C Order can be placed): Jail Facility 12/01/24 1200 <Electronically signed by Kenyon Joiner MD> Cosigner Signature (if applicable): CC: Dr. Jaxson Meehan DO; Dr. Alysha Miguel MD; Dr. Sylvia Lizama MD ~ [facility] Work Phone: 1(975) 759-619503-12-2025 Discharge summary [facility] Medical Records Department [address] [place] [address] Transfer to [facility] MR#: [id number] Acct: [id number] Name: LISA UP Rep #:[id number] : 1945 79 From: Kenyon reese MD PCP: Dr. Sylvia Lizama MD Status:ADM I N Certification of patient admission REQUIRED AT TIME OF ADMISSION. I CERTIFY THAT POST-HOSPITAL ECF SERVICES ARE REQUIRED TO BE GIVEN ON AN IN-PATIENT BASIS BECAUSE OF THE ABOVE NAMED PATIENT'S NEED FOR CORRECTION CARE ON A CONTINUING BASIS FOR THE CONDITION(S) FOR WHICH HE/SHE WAS RECEIVING IN-PATIENT HOSPITAL SERVICES PRIOR TO HIS/HER TRANSFER TO THE [facility]. 12/01/24 1200 Diet Diet Order/Speech Therapy: 11/30/24 [...] Done in Hospital Allergies COVID-19 vaccine, mRNA, [id number], Allergy (Verified 11/26/24 11:17) Anaphylaxis erythromycin base [...] in before D/C Order can be placed): Jail Facility 12/01/24 1200 Cosigner Signature (if applicable): CC: Dr. Jaxson Meehan DO; Dr. Alysha Miguel MD; Dr. Sylvia Lizama MD ~ [facility]03-11-2025 Progress note Author Jaxson Meehan [facility] Note Date/Time November 30, 2024 3:2 7pm [facility] Medical Records Department [address] [place] [address] Progress Note - Hospitalist 11/30/243 MR#: [id number] Acct: [id number] Name: LISA UP Rep #:[id number] : 1945 79 From: Jaxson de santiago DO PCP: Dr. Sylvia Lizama MD Status:ADM I N Location: [place] [address] Reason for Visit Reason for Visit: Diagnoses [...] (Auto) 67.0, Lymph % (Auto) 18.2 L, Centre % (Auto) 10.3 H, Eos % (Auto) [...] is an 79-year-old female who presented to [facility] ED on 11/26/2024 with weakness and [...] 35 minutes. Charges/Coding Visit Charges Inpatient E&M: 77223 Subs Hosp L2 11/30/24 1527 <Electronically signed by Jaxson Meehan DO> Cosigner Signature (if applicable): CC: ~ Signed [facility] Work Phone: 1(901) 635-789603-11-2025 Progress note [facility] Medical Records Department [address] [place] [address] Progress Note - Hospitalist 11/30/24 1123 MR#: [id number] Acct: [id number] Name: LISA UP Rep #:[id number] : 1945 79 From: Jaxson de santiago DO PCP: Dr. Sylvia Lizama MD Status:ADM I N Location: [place] [address] Reason for Visit Reason for Visit: Diagnoses [...] (Auto) 67.0, Lymph % (Auto) 18.2 L, Centre % (Auto) 10.3 H, Eos % (Auto) [...] is an 79-year-old female who presented to [facility] ED on 11/26/2024 with weakness and [...] 35 minutes. Charges/Coding Visit Charges Inpatient E&M: 19907 Subs Hosp L2 11/30/24 1527 Cosigner Signature (if applicable): CC: ~ Signed [facility]03-10-2025 Progress note Author Alysha Miguel [facility] Note Date/Time November 29, 2024 10: 17am [facility] Medical Records Department [address] [facility] [place] [address] Progress Note - Hospitalist 11/29/24 0807 MR#: [id number] Acct: [id number] Name: LISA UP Rep #:[id number] : 1945 79 From: Alysha Miguel MD PCP: Dr. Sylvia Lizama MD Status:ADM I N Location: [place] [address] Reason for Visit Reason for Visit: Diagnoses [...] % (Auto) 62.8, Lymph % (Auto) 20.1, Centre % (Auto) 12.7 H, Eos % (Auto) [...] infection requested for PT OT eval and oncology social worker to assist with discharge planning ? 11/28/2024 patient still remains significantly weak. Case was discussed with case management today prior plan is for patient to be discharged to a detention facility pending insurance 3. Non-Hodgkin's lymphoma ? [...] documentation, 50minutes Charges/Coding Visit Charges Inpatient E&M: 14042 Subs Hosp L3 11/29/24 0914 <Electronically signed by Alysha Miguel MD> Cosigner Signature (if applicable): CC: ~ Signed ADDENDUM by Dr. Alysha Miguel MD on 11/29/24 at 1017 Addendum Patient urinalysis obtained came back positive for acute cystitis subsequently started on Rocephin urine cultures already sent. 11/29/24 1017<Electronically signed by Alysha Miguel MD> Cosigner Signature (if applicable): cc: ~* Signed [facility] Work Phone: [phone]) [phone] Progress note [facility] Medical Records Department [address] [place] [address] Progress Note - Hospitalist 11/29/24 0807 MR#: [id number] Acct: [id number] Name: LISA UP Rep #:[id number] : 1945 79 From: Alysha Miguel MD PCP: Dr. Sylvia Lizama MD Status:ADM I N Location: [place] [address] Reason for Visit Reason for Visit: Diagnoses Weakness (11/27/24) Other malaise (11/27/24) Subjective Subjective Patient seen complains of intermittent fever and chills. Temperature maximum over the past 24 [id number]. Repeated viral respiratory panel, checks x-ray urinalysis [...] % (Auto) 62.8, Lymph % (Auto) 20.1, Centre % (Auto) 12.7 H, Eos % (Auto) [...] infection requested for PT OT eval and oncology social worker to assist with discharge planning ? 11/28/2024 patient still remains significantly weak. Case was discussed with case management today prior plan is for patient to be discharged to a detention facility pending insurance 3. Non-Hodgkin's lymphoma ? [...] documentation, 50minutes Charges/Coding Visit Charges Inpatient E&M: 49496 [facility] Hosp 11/29/24 0914 Cosigner Signature (if applicable): CC: ~ Signed ADDENDUM by Dr. Alysha Miguel MD on 11/29/24 at 1017 Addendum Patient urinalysis obtained came back positive for acute cystitis subsequently started on Rocephin urine cultures already sent. 11/29/24 1017 Cosigner Signature (if applicable): cc: ~* Signed [facility]03-10-2025 Radiology Diagnostic study note [facility] Imaging Services [address] [place] [address] Chest 1 View (Portable) MR#: [id number] Acct: [id number] Name: LISA UP Rep #: [id number] : 1945 F 79 From: Beena Li MD PCP: Dr. Sylvia Lizama MD Status: ADM I N Study:Chest 1 View (Portable) Date of Exam: 11/29/24 Exam# [id number] Ordering Dr: Shelia Miguel MD EXAM: XR Chest, 1 View CLINICAL INDICATION: TECHNIQUE: Frontal view of the chest. COMPARISON: No relevant prior studies available. FINDINGS: LUNGS AND PLEURAL SPACES: Unremarkable. No consolidation. No pneumothorax. HEART: Unremarkable. No cardiomegaly. MEDIASTINUM: Unremarkable. Normal mediastinal contour. BONES/JOINTS: Unremarkable. No acute fracture. RAD/Chest 1 View (Portable) IMPRESSION: No acute cardiopulmonary process. Reading Location: [facility] CC: Dr. Alysha Miguel MD; Dr. Sylvia Lizama MD ~ O[employer] Welder: Signed [facility]03-09-2025 Progress note Author Alysha Miguel [facility] Note Date/Time November 28, 2024 10:0 7am [facility] Medical Records Department [address] [place] [address] Progress Note - Hospitalist 11/28/24 0738 MR#: [id number] Acct: [id number] Name: LISA UP Rep #:[id number] : 1945 79 From: Alysah Miguel MD PCP: Dr. Sylvia Lizama MD Status:ADM I N Location: [place] [address] Reason for Visit Reason for Visit: Diagnoses [...] infection requested for PT OT eval and oncology social worker to assist with discharge planning ? 11/28/2024 patient still remains significantly weak. Case was discussed with case management today prior plan is for patient to be discharged to a detention facility pending insurance 2. COVID-19 infection ? [...] 38 Minutes Charges/Coding Visit Charges Inpatient E&M: 80250 Subs Hosp L2 11/28/24 1007 <Electronically signed by Alysha Miguel MD> Cosigner Signature (if applicable): CC: ~ Signed [facility] Work Phone: [phone]) [phone] Progress note [facility] Medical Records Department [address] [place] [address] Progress Note - Hospitalist 11/28/24 0738 MR#: [id number] Acct: [id number] Name: LISA UP Rep #:[id number] : 1945 79 From: Alysha Miguel MD PCP: Dr. Sylvia Lizama MD Status:ADM I N Location: [place] [address] Reason for Visit Reason for Visit: Diagnoses [...] infection requested for PT OT eval and oncology social worker to assist with discharge planning ? 11/28/2024 patient still remains significantly weak. Case was discussed with case management today prior plan is for patient to be discharged to a detention facility pending insurance 2. COVID-19 infection ? [...] 38 Minutes Charges/Coding Visit Charges Inpatient E&M: 22362 Subs Hosp L2 11/28/24 1007 Cosigner Signature (if applicable): CC: ~ Signed [facility]03-09-2025 Progress note Author Alysha Miguel [facility] Note Date/Time November 28, 2024 7:39 am [facility] Medical Records Department [address] [place] [address] Progress Note - Hospitalist 11/27/24 08 MR#: [id number] Acct: [id number] Name: LISA UP Rep #:[id number] : 1945 79 From: Alysha Miguel MD PCP: Dr. Sylvia Lizama MD Status:ADM I N Location: [place] [id number]- 1 Reason for Visit Reason for Visit: [...] (Auto) 71.0 H, Lymph % (Auto) 15.0 L,Centre % (Auto) 12.2 H, Eos % (Auto) [...] Clarity Clear, Urine pH 7.0, Ur Specific [place] 1.010, Urine Protein 15 H, Urine Glucose [...] as the left sphenoid sinus. Reading Location: [id number] Chest X-Ray 11/26/24 14:35 IMPRESSION: No acute abnormality is seen. Reading Location: [id number] Knee X-Ray 11/26/24 15:38 IMPRESSION: Status post total knee replacement. No acute abnormality is seen. Reading Location: [id number] Brain MRI 11/26/24 17:29 IMPRESSION: 1. No [...] infection requested for PT OT eval and oncology social worker to assist with discharge planning 2. COVID-19 [...] documentation,50 Minutes Charges/Coding Visit Charges Inpatient E&M: 84783 Subs Hosp L3 11/27/24 1020 <Electronically signed [...] Cosigner Signature (if applicable): cc: ~* Signed [facility] Work Phone: [phone]) [phone] Progress note [facility] Medical Records Department [address] [place] [address] Progress Note - Hospitalist 11/27/24 08 MR#: [id number] Acct: [id number] Name: LISA UP Rep #:[id number] : 1945 79 From: Alysha Miguel MD PCP: Dr. Sylvia Lizama MD Status:ADM I N Location: [place] [address] Reason for Visit Reason for Visit: Diagnoses [...] (Auto) 71.0 H, Lymph % (Auto) 15.0 L,Centre % (Auto) 12.2 H, Eos % (Auto) [...] Clarity Clear, Urine pH 7.0, Ur Specific [place] 1.010, Urine Protein 15 H, Urine Glucose [...] as the left sphenoid sinus. Reading Location: [id number] Chest X-Ray 11/26/24 14:35 IMPRESSION: No acute [...] infection requested for PT OT eval and oncology social worker to assist with discharge planning 2. COVID-19 [...] documentation,50 Minutes Charges/Coding Visit Charges Inpatient E&M: 40891 Subs Hosp L3 11/27/24 1020 Cosigner Signature [...] Cosigner Signature (if applicable): cc: ~* Signed [facility]03-08-2025 Evaluation note* Diagnosis Onset Date Resolution Status Admit Date Debility acute November 27 11:55am Weakness acute November 27 11:55am [facility] Work Phone: [phone] History and physical note Author Jaxson Meehan [facility] Note Date/Time November 26, 2024 7:19 pm [facility] Medical Records Department [address] [place] [address] H&P Exam - Hospitalist 11/26/24 1607 MR#: [id number] Acct: [id number] Name: LISA UP Rep #:[id number] : 1945 79 From: Jaxson de santiago DO PCP: Dr. Sylvia Lizama MD Status:ADM I NO [facility] HPI - General General Date of Admission: 11/26/24 Date of Service: 11/26/24 Chief Complaint: weakness with fall at home HPI Narrative LISA UP, is a 79 F who presented to [facility] ED on 11/26/2024 with weakness and [...] any other acute concerns at this time. [facility] Medical History DVT (deep venous thrombosis) Post-menopausal [...] vaccine, mRNA, Allergy Anaphylaxis Verified 11/26/24 11:17 [id number], erythromycin base Allergy Rash Verified 11/26/24 11:17 [...] (Auto) 71.0 H, Lymph % (Auto) 15.0 L,Centre % (Auto) 12.2 H, Eos % (Auto) [...] Clarity Clear, Urine pH 7.0, Ur Specific [place] 1.010, Urine Protein 15 H, Urine Glucose [...] is an 79-year-old female who presented to [facility] ED on 11/26/2024 with weakness and [...] 75 minutes. Charges/Coding Visit Charges Inpatient E&M: 69950 Init Hosp L3 11/26/242018 <Electronically signed by Jaxson Meehan DO> Cosigner Signature (if applicable): CC: Dr. Jaxson Meehan DO; Dr. Sylvia Lizama MD~ Signed [facility] Work Phone: [phone]) [phone] History and physical note [facility] Medical Records Department [facility] [place] [address] H&P Exam - Hospitalist 11/26/24 1607 MR#: [id number] Acct: [id number] Name: LISA UP Rep #:[id number] : 1945 79 From: Jaxson Kady de santiago DO PCP: Dr. Sylvia Lizama MD Status:ADM I NO Location: [place] [address] HPI - General General Date of Admission: 11/26/24 Date of Service: 11/26/24 Chief Complaint: weakness with fall at home HPI Narrative LISA UP, is a 79 F who presented to [facility] ED on 11/26/2024 with weakness and [...] any other acute concerns at this time. [facility] Medical History DVT (deep venous thrombosis) Post-menopausal [...] vaccine, mRNA, Allergy Anaphylaxis Verified 11/26/24 11:17 [id number], erythromycin base Allergy Rash Verified 11/26/24 11:17 [...] (Auto) 71.0 H, Lymph % (Auto) 15.0 L,Centre % (Auto) 12.2 H, Eos % (Auto) [...] Clarity Clear, Urine pH 7.0, Ur Specific [place] 1.010, Urine Protein 15 H, Urine Glucose [...] as the left sphenoid sinus. Reading Location: [id number] Chest X-Ray 11/26/24 14:35 IMPRESSION: No acute abnormality is seen. Reading Location: NOMEI Knee X-Ray 11/26/24 15:38 IMPRESSION: Status post total knee replacement. No acute abnormality is seen. Reading Location: [id number] Assessment & Plan Assessment/Plan (1) Debility: (2) Weakness: PLAN: Plan Patient is an 79-year-old female who presented to [facility] ED on 11/26/2024 with weakness and [...] 75 minutes. Charges/Coding Visit Charges Inpatient E&M: 27172 Init Hosp L3 11/26/242018 Cosigner Signature (if applicable): CC: Dr. Jaxson Meehan DO; Dr. Sylvia Lizama MD~ Signed [facility]03-07-2025 Discharge summary Author Tanisha Bahena [facility] Note Date/Time November 26, 2024 4:04 pm [facility] Medical Records Department [address] [place] [address] Emergency Department Summary 11/26/24 MR#: [id number] Acct: [id number] Name: LISA UP Rep #:[id number] : 1945 79 From: Tanisha Reynolds PCP: Dr. Sylvia Lizama MD Status:ADM I NO Location: [place] [address] HPI History of Present Illness Chief Complaint: [...] time. Patient is on any blood thinners. [facility] Medical History DVT (deep venous thrombosis) Post-menopausal [...] vaccine, mRNA, Allergy Anaphylaxis Verified 11/26/24 11:17 [id number], erythromycin base Allergy Rash Verified 11/26/24 11:17 [...] 71.0 H Lymph % (Auto) 15.0 L Centre % (Auto) 12.2 H Eos % (Auto) [...] Clarity Clear Urine pH 7.0 Ur Specific [place] 1.010 Urine Protein 15 H Urine Glucose [...] as the left sphenoid sinus. Reading Location: [id number]-A Chest X-Ray 11/26/24 14:35 IMPRESSION: No acute abnormality is seen. Reading Location: [id number] Knee X-Ray 11/26/24 15:38 IMPRESSION: Status post total knee replacement. No acute abnormality is seen. Reading Location: [id number]-B Rhythm Strip Rhythm Strip: Sinus Rhythm Rate: 68 Ectopy: None EKG Initial EKG: Attestation: I personally reviewed and interpreted this EKG as follows: Interpretation: Sinus Rhythm Comments: Normal sinus rhythm at a rate of 68 bpm Normal axis Normal intervals Normal ST segments Prior EKG tracings: available for review Prior: Unchanged Management Discussion w/another healthcare provider: Hospitalist and Construction Trades Contractor Discharge Plan Triage Chief Complaint: Fall ED Provider: Tanisha Bahena Dx/Rx/DC Orders Clinical Impression: Fall, Debility, Abnormal brain CT Primary Care Provider: Sylvia Lizama Disposition Disposition: Acute Care Hospital [facility] What to do if you have Problems For any increased pain, shortness of breath, bleeding, nausea or vomiting, chestpain, or any unexpected problems, contact your Primary Care Provider. Call [facility] ([phone]) or report to the closest Emergency Room. Call 911 if necessary. 11/26/24 1704 <Electronically signed by Tanisha Bahena DO> Cosigner Signature (if applicable): CC: Dr. Sylvia Lizama MD ~ Signed [facility] Work Phone: 1(548) [phone] Discharge summary [facility] Medical Records Department [address] [place] [address] Emergency Department Summary 11/26/24 MR#: [id number] Acct: [id number] Name: LISA UP Rep #:[id number] : 1945 79 From: Tanisha Reynolds PCP: Dr. Sylvia Lizama MD Status:ADM I NO Location: [place] [address] HPI History of Present Illness Chief Complaint: [...] time. Patient is on any blood thinners. [facility] Medical History DVT (deep venous thrombosis) Post-menopausal [...] vaccine, mRNA, Allergy Anaphylaxis Verified 11/26/24 11:17 [id number], erythromycin base Allergy Rash Verified 11/26/24 11:17 [...] 71.0 H Lymph % (Auto) 15.0 L Centre % (Auto) 12.2 H Eos % (Auto) [...] Clarity Clear Urine pH 7.0 Ur Specific [place] 1.010 Urine Protein 15 H Urine Glucose [...] as the left sphenoid sinus. Reading Location: [facility] Chest X-Ray 11/26/24 14:35 IMPRESSION: No acute abnormality is seen. Reading Location: [id number]-W Knee X-Ray 11/26/24 15:38 IMPRESSION: Status post total knee replacement. No acute abnormality is seen. Reading Location: [id number]-P Rhythm Strip Rhythm Strip: Sinus Rhythm Rate: 68 Ectopy: None EKG Initial EKG: Attestation: I personally reviewed and interpreted this EKG as follows: Interpretation: Sinus Rhythm Comments: Normal sinus rhythm at a rate of 68 bpm Normal axis Normal intervals Normal ST segments Prior EKG tracings: available for review Prior: Unchanged Management Discussion w/another healthcare provider: Hospitalist and Construction Trades Contractor Discharge Plan Triage Chief Complaint: Fall ED Provider: Tanisha Bahena Dx/Rx/DC Orders Clinical Impression: Fall, Debility, Abnormal brain CT Primary Care Provider: Sylvia Lizama Disposition Disposition: Acute Care [facility] What to do if you have Problems For any increased pain, shortness of breath, bleeding, nausea or vomiting, chestpain, or any unexpected problems, contact your Primary Care Provider. Call [facility] ([phone]) or report tothe closest Emergency Room. Call 911 if necessary. 11/26/24 1704 Cosigner Signature (if applicable): CC: Dr. Sylvia Lizama MD ~ Signed [facility]03-07-2025 Discharge summary [facility] Medical Records Department [address] [place] [address] Emergency Department Summary 11/26/24 MR#: [id number] Acct: [id number] Name: LISA UP Rep #:[id number] : 1945 79 From: Tanisha Reynolds PCP: Dr. Sylvia Lizama MD Status:ADM I NO Location: [place] [address] HPI History of Present Illness Chief Complaint: [...] time. Patient is on any blood thinners. [facility] Medical History DVT (deep venous thrombosis) Post-menopausal [...] vaccine, mRNA, Allergy Anaphylaxis Verified 11/26/24 11:17 [id number], erythromycin base Allergy Rash Verified 11/26/24 11:17 [...] 71.0 H Lymph % (Auto) 15.0 L Centre % (Auto) 12.2 H Eos % (Auto) [...] Clarity Clear Urine pH 7.0 Ur Specific [place] 1.010 Urine Protein 15 H Urine Glucose [...] as the left sphenoid sinus. Reading Location: [id number] Chest X-Ray 11/26/24 14:35 IMPRESSION: No acute abnormality is seen. Reading Location: [id number] Knee X-Ray 11/26/24 15:38 IMPRESSION: Status post total knee replacement. No acute abnormality is seen. Reading Location: [id number] Rhythm Strip Rhythm Strip: Sinus Rhythm Rate: 68 Ectopy: None EKG Initial EKG: Attestation: I personally reviewed and interpreted this EKG as follows: Interpretation: Sinus Rhythm Comments: Normal sinus rhythm at a rate of 68 bpm Normal axis Normal intervals Normal ST segments Prior EKG tracings: available for review Prior: Unchanged Management Discussion w/another healthcare provider: Hospitalist and Construction Trades Contractor Discharge Plan Triage Chief Complaint: Fall ED Provider: Tanisha Bahena Dx/Rx/DC Orders Clinical Impression: Fall, Debility, Abnormal brain CT Primary Care Provider: Sylvia Lizama Disposition Disposition: Acute Care Hospital [facility] What to do if you have Problems For any increased pain, shortness of breath, bleeding, nausea or vomiting, chestpain, or any unexpected problems, contact your Primary Care Provider. Call [facility] ([phone]) or report tothe closest Emergency Room. Call 911 if necessary. 11/26/24 6575 Cosigner Signature (if applicable): CC: Dr. Sylvia Lizama MD ~ Signed [facility]03-07-2025 Radiology Diagnostic study note [facility] Imaging Services [address] [place] [id number] Knee 4 or More Views MR#: [id number] Acct: [id number] Name: LISA UP Rep #: [id number] : 1945 F 79 From: Ej Almanzar MD PCP: Dr. Sylvia Lizama MD Status: REG E R Study:Knee 4 or More Views Date of Exam: 11/26/24 Exam# [id number] Ordering Dr: Mingo Bahena DO PROCEDURE: KNEE [...] No acute abnormality is seen. Reading Location: [id number] CC: Dr. Tanisha Bahena DO; Dr. Sylvia Lizama MD ~ Oxyhydrogen Welder: Signed [facility]03-07-2025 Telephone encounter Note* Telephone Encounter - Shannon Hui RN - 11/26/2024 3:33 PM EST Noted. Thank you. Shannon Hui RN [facility]03-07-2025 Miscellaneous Notes* Telephone Encounter - Shannon uHi RN - 11/26/2024 3:33 PM EST Noted. [...] is discharged (if admitted) documented in this encounterMercer [facility]03-[facility]25 Radiology Diagnostic study note [facility] Imaging Services [address] [place] [id number] Knee 4 or More Views MR#: [id number] Acct: [id number] Name: LISA UP Rep #: [id number] : 1945 F 79 From: Ej Almanzar MD PCP: Dr. Sylvia Lizama MD Status: REG E R Study:Knee 4 or More Views Date of Exam: 11/26/24 Exam# [id number] Ordering Dr: Mingo Bahena DO PROCEDURE: KNEE [...] No acute abnormality is seen. Reading Location: [id number] CC: Dr. Tanisha Bahena DO; Dr. Sylvia Lizama MD ~ Oxyhydrogen Welder: Signed [facility]03-07-2025 Radiology Diagnostic study note [facility] Imaging Services [address] [place] [address] Chest PA and Lateral MR#: [id number] Acct: [id number] Name: LISA UP Rep #: [id number] : 1945 79 From: Ej Almanzar MD PCP: Dr. Sylvia Lizama MD Status: REG E R Study:Chest PA and Lateral Date of Exam: 11/26/24 Exam# [id number] Ordering Dr: Mingo Bahena DO PROCEDURE: CHEST [...] Bahena DO; Dr. Sylvia Lizama MD ~ Oxyhydrogen Welder: Signed [facility]03-07-2025 Radiology Diagnostic study note [facility] Imaging Services [address] [place] [address] Brain/Head without Contrast MR#: [id number] Acct: [id number] Name: LISA UP Rep #: [id number] : 1945 79 From: Ej Almanzar MD PCP: Dr. Sylvia Lizama MD Status: REG E R Study:Brain/Head without Contrast Date of Exa m: 11/26/24 Exam# [id number] Ordering Dr: Mingo Bahena DO EXAM: BRAIN/HEAD [...] as the left sphenoid sinus. Reading Location: [facility] CC: Dr. Tanisha Bahena DO; Dr. Sylvia Lizama MD ~ Oxyhydrogen Welder: Signed [facility]03-07-2025 Telephone encounter Note* Telephone Encounter - [...] and fall at home) Rossana Escalona LPN [facility]03-07-2025 Discharge summary Author Tanisha Bahena [facility] Note Date/Time November 26, 2024 5:04 pm [facility] Medical Records Department [address] [place] [address] Emergency Department Summary 11/26/24 MR#: [id number] Acct: [id number] Name: LISA UP Rep #:[id number] : 1945 79 From: Tanisha Reynolds PCP: Dr. Sylvia Lizama MD Status:ADM I NO Location: [place] [address] HPI History of Present Illness Chief Complaint: [...] time. Patient is on any blood thinners. [facility] Medical History DVT (deep venous thrombosis) Post-menopausal [...] vaccine, mRNA, Allergy Anaphylaxis Verified 11/26/24 11:17 [id number], erythromycin base Allergy Rash Verified 11/26/24 11:17 [...] 71.0 H Lymph % (Auto) 15.0 L Centre % (Auto) 12.2 H Eos % (Auto) [...] Clarity Clear Urine pH 7.0 Ur Specific [place] 1.010 Urine Protein 15 H Urine Glucose [...] as the left sphenoid sinus. Reading Location: [facility] Chest X-Ray 11/26/24 14:35 IMPRESSION: No acute abnormality is seen. Reading Location: [id number] Knee X-Ray 11/26/24 15:38 IMPRESSION: Status post total knee replacement. No acute abnormality is seen. 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 Call [facility] ([phone]) or report to the closest Emergency Room. Call 911 if necessary. 11/26/24 1704 <Electronically signed by Tanisha Bahena DO> Cosigner Signature (if applicable): CC: Dr. Sylvia Lizama MD ~ Signed [facility] Work Phone: 1(524) 505-837003-07-2025 Radiology Diagnostic study note [facility] Imaging Services [address] [place], [place] [address] Chest PA and Lateral MR#: [id number] Acct: [id number] Name: LISA UP Rep #: [id number] : 1945 F 79 From: Ej Almanzar MD PCP: Dr. Sylvia Lizama MD Status: REG E R Study:Chest PA and Lateral Date of Exam: 11/26/24 Exam# [id number] Ordering Dr: Mingo Bahena DO PROCEDURE: CHEST PA AND LATERAL REASON FOR EXAM: Weakness, cough and chills. TECHNIQUE: Frontal and lateral views of the chest. COMPARISON: Comparison is made with prior study dated November 06, 2024. FINDINGS: EKG electrodes are seen. The heart is not enlarged. The lungs are clear. RAD/Chest PA and Lateral IMPRESSION: No acute abnormality is seen. Reading Location: [id number] CC: Dr. Tanisha Bahena DO; Dr. Sylvia Lizama MD ~ Oxyhydrogen Welder: Signed [facility]03-07-2025 Radiology Diagnostic study note [facility] Imaging Services [address] [place] [address] Brain/Head without Contrast MR#: [id number] Acct: [id number] Name: LISA UP Rep #: [id number] : 1945 F 79 From: Ej Almanzar MD PCP: Dr. Sylvia Lizama MD Status: REG E R Study:Brain/Head without Contrast Date of Exa m: 11/26/24 Exam# [id number] Ordering Dr: Mingo Bahena DO EXAM: BRAIN/HEAD [...] Bahena DO; Dr. Sylvia Lizama MD ~ Oxyhydrogen Welder: Signed [facility]03-07-2025 Telephone encounter Note* Telephone Encounter - César Quintero DO - 11/26/2024 1:36 PM EST Can let her know the CT scans showed good response of the lymphoma without complete resolution of the lymphoma. Set up office visit several weeks down the road when she is feeling better. César Quintero DO [facility]03-07-2025 Telephone encounter Note* Telephone Encounter - María [...] visit when patient is discharged (if admitted) [facility] Work Phone: [phone] Telephone encounter Note* Telephone Encounter - Sabrina Cavanaugh MA - 11/15/2024 8:01 AM EST Patient was made aware of the results. She was made of provider recommendations. Patient verbalizesunderstanding. Sabrina Cavanaugh Ma [facility]02-24-2025 Telephone encounter Note* Telephone Encounter - Sabrnia Cavanaugh MA - 11/15/2024 8:01 AM EST ----- Message from Judith Pickard sent at 11/15/2024 7:53 AM EST ----- Please let patient know that she is positive for COVID. Take all the recommended precautions, rest,fluids, if she becomes short of breath, please go to the emergency room. This has been going on toolong for us to treat with Paxlovid. [facility]02-24-2025 Miscellaneous Notes* Telephone Encounter - Sabrina Cavanaugh [...] to treat with Paxlovid. documented in this encounterMercer County Community Hospital02-24-2025 Progress note* Result Encounter Note - Judith Pickard APRN.CNP - 11/15/2024 7:53 AM EST Please let patient know that she is positive for COVID. Take all the recommended precautions, rest,fluids, if she becomes short of breath, please go to the emergency room. This has been going on toolong for us to treat with Paxlovid. [facility]02-21-2025 Instructions* Patient Instructions* Judith Pickard APRN.CNP - 11/12/2024 3:59 PM EST 1) Keep appt. November 2) Swab for flu/Covid/and RSV documented in this encounterMercer County [facility] Hospital02-21-2025 History of Present illness Narrative* Judith Pickard [...] NEISHA VAGINAL HYSTERECTOMY ALLERGIES Covid-19 Vaccine, Mrna, [id number], Lnp-S (Moderna); Adhesive; Erythromycin; Latex; Lisinopril; Nafcillin; [...] Heart Father other (Other) Father Heart Brother [place], aneurysm Migraines Daughter Macular Degen Maternal Aunt [...] improvement. Judith Pickard APRN.LEONCIO documented in this encounterMercer County Community Hospital02-21-2025 History of Present illness Narrative* Jacky VenturaDannielle, [...] PATIENT PRESENTS WITH AN IMPLANTABLE OR ATTACHED DIRECTOR PAYER: No ALLERGIES: Reviewed and unchanged CONTRAST ALLERGY: [...] 2024 TIME: 4:09 PM documented in this encounterMercer County Community Hospital02-19-2025 Telephone encounter Note * Telephone Encounter - Missy Peralta LPN - 11/10/2024 12:27 PM EST Patient notified to keep lab/CT appointments. Missy Peralta LPN [facility]02-19-2025 Miscellaneous Notes* Telephone Encounter - Missy Peralta [...] pain or fever. Patient was seen at [facility] 11/01 and then went to [facility] ER 11/06/2024- diagnosed with sinusitisand bronchitis. Currently [...] with results. Please advise. documented in this encounterMercer County Community Hospital02-19-2025 Telephone encounter Note * Telephone Encounter - César Quintero DO - 11/10/2024 10:50 AM EST Yes. César Quintero DO [facility]02-19-2025 Telephone encounter Note* Telephone Encounter - Missy Peralta LPN - 11/10/2024 10:11 AM EST Patient has been sick for 3-4 weeks; SOB, productive cough, congestion. Denies chest pain or fever. Patient was seen at [facility] 11/01 and then went to [facility] ER 11/06/2024- diagnosed with sinusitisand bronchitis. Currently taking Augmentin. Continues with productive cough and SOB. Patient is asking if she should keep labs/CT on 11/12/2024 or reschedule? Missy Peralta LPN [facility]02-19-2025 Telephone encounter Note* Telephone Encounter - María Elena Louis - 11/10/2024 10:02 AM EST Patient called stating she has a cough/sinusitis and is asking if she should keep 2/21 appointmentswith lab/CT. She is asking if she coughs during CT, would it interfere with results. Please advise. [facility] Work Phone: [phone] Telephone encounter Note* Telephone Encounter - Yarely [...] prescribed previously. Shauna requests call back at [phone]. Yarely Lee RN [facility]02-18-2025 Miscellaneous Notes* Telephone Encounter - Yarely Lee [...] prescribed previously. Shauna requests call back at [phone]. Yarely Lee RN * Telephone Encounter - [...] will need short term dose sent to [facility]. The patient has been identified by name [...] 08, 2024 10:10 AM documented in this encounterMercer County Community Hospital02-18-2025 Telephone encounter Note * Telephone Encounter - María Elena Louis - 11/09/2024 9:39 AM EST Daughter called stating that Dr. Lizama's office informed her that Dr. Quintero refills. Patient is out and needs short order sent to [facility], 90 days can be sent to mail in. [facility] Work Phone: [phone]) 556-425702-17-2025 Telephone encounter Note* Telephone Encounter - Tima Benavides RN - 11/08/2024 10:05 AM EST Pt states she doesn't know how the dose was decreased to 25 mg. Pt states she takes 50 mg BID. I couldn't see anywhere that it was decreased to 25 mg. Please resend and Pt will need short term dose sent to [facility]. The patient has been identified by name [...] Benavides RN November 08, 2024 10:10 AM [facility]02-12-2025 Telephone encounter Note* Telephone Encounter - Felicia West LPN - 11/03/2024 6:32 PM EST Patient notified.Felicia West LPN [facility]02-12-2025 Miscellaneous Notes* Telephone Encounter - Felicia West [...] urine specimen Please advise documented in this encounterMercer County Community Hospital02-11-2025 Telephone encounter Note * Telephone Encounter - Elida Lozada APRN.CNP - 11/02/2024 5:20 PM EST Urine culture reveals mixed bacterial growth. Patient can complete ATB if she desires and symptoms are improving. She will need to follow up with PCP to have repeat urine specimen Please advise [facility] Work Phone: [phone]) 138-177402-10-2025 Instructions* Patient Instructions* Elida Lozada APRN.CNP - [...] treated. A physician, nurse practitioner or physician medical assistant secretary may treat with a short course of [...] women if symptoms resolve. documented in this encounterMercer County Community Hospital02-10-2025 History of Present illness Narrative* Elba العلي [...] PATIENT PRESENTS WITH AN IMPLANTABLE OR ATTACHED DIRECTOR PAYER: No RADIOLOGY DEPARTMENT: General X-ray: Exam(s) Completed: Chest X-Ray PERIPHERAL IV DATA: Not applicable SIGNED BY: RT Tulio(R) November 01, 2024 12:25 PM documented in this encounterMercer County Community Hospital02-10-2025 History of Present illness Narrative* Elida Lozada APRN.TIER IN - 11/01/2024 12:22 PM EST This note was created using NoteWriter. Subjective Lisa Up is a 78 year old female. 78 year old female with PMH migraines, hyperlipidemia, HTN, CHRISTIAAN, and B-cell lymphoma presents with multiple complaints [...] history is provided by the patient. No speech language pathology assistant was used. URI She complains of cough [...] NEISHA VAGINAL HYSTERECTOMY ALLERGIES Covid-19 Vaccine, Mrna, [id number], Lnp-S (Moderna); Adhesive; Erythromycin; Latex; Lisinopril; Nafcillin; [...] Heart Father other (Other) Father Heart Brother [place], aneurysm Migraines Daughter Macular Degen Maternal Aunt [...] care with fluids and rest Elida Lozada APRN.TIER [place] documented in this encounterMercer County Community Hospital01-03-2025 History of Present illness Narrative* Lanie Matute RN - 09/24/2024 1:23 PM EST Pt here for C1 D8 of Rituxan. Completed initial dosing without any signs of reaction. Pt states that she just feels tired at completion. Daughter to crab picker. Denies any other issues or concerns Lanie Matute RN documented in this encounterMercer County Community Hospital12-30-2024 Telephone encounter Note * Telephone Encounter - [...] after hours number protocol. Chinyere Shea RN [facility] Work Phone: [phone] Miscellaneous Notes* Telephone Encounter - Chinyere Shea [...] protocol. Chinyere Shea RN documented in this encounterMercer County Community Hospital12-27-2024 History of Present illness Narrative* Ashley Castillo [...] made aware of restart. documented in this encounterMercer County Community Hospital12-16-2024 Telephone encounter Note * Telephone Encounter - Flor Moore - 09/06/2024 12:15 PM EST Patient is active with Medicare A&B/[facility] AARP Supplement, LOC 100%, $240 deductible has $0 remaining, $1632 OOP has $1632 remaining. Estimate shows patient financial responsibility is $1,025.51 for each treatment in 2023 until oop max is reached. Called the patient to discuss, left a voicemail to return call and sent my contact info with [employer] via [employer]. Reference #[id number] [facility]12-16-2024 Miscellaneous Notes* Telephone Encounter - Flor Moore - 09/06/2024 12:15 PM EST Patient is active with Medicare A&B/[facility] AARP Supplement, LOC 100%, $240 deductible has $0 remaining, $1632 OOP has $1632 remaining. Estimate shows patient financial responsibility is $1,025.51 for each treatment in 2023 until oop max is reached. Called the patient to discuss, left a voicemail to return call and sent my contact info with Felix Wilcox via [employer]. Reference #[id number] documented in this encounterMercer County Community Hospital12-13-2024 Telephone encounter Note * Telephone Encounter - Lou Rincon - 09/03/2024 2:13 PM EST Patient already scheduled. Lou Rincon [facility]12-13-2024 Miscellaneous Notes* Telephone Encounter - Lou Rincon [...] 2, 3 and 4. documented in this encounterMercer County Community Hospital12-13-2024 Telephone encounter Note * Telephone Encounter - Shannon Hui RN - 09/03/2024 12:46 PM EST 6 weeks after finishing rituximab- CBC/CMP/LDH/CT C/A/P then OV with Dr. Quintero 1 week later. Shannon Hui RN [facility]12-13-2024 Telephone encounter Note* Telephone Encounter - Lou Rincon - 09/03/2024 12:33 PM EST Spoke with patient and scheduled. Please advise re: follow up office visit. Lou Rincon [facility]12-13-2024 Telephone encounter Note* Telephone Encounter - Shannon [...] for a C1 call. Shannon Hui RN [facility]12-13-2024 Telephone encounter Note* Telephone Encounter - Shaina Michel - 09/03/2024 11:35 AM EST Begin weekly rituximab 09/10/2024 X4 weeks. Will need CBC/CMP/LDH/Uric acid for cycle 1- may be a straight back for that. Will need CBC only for weeks 2, 3 and 4. [facility]12-13-2024 Miscellaneous Notes* Telephone Encounter - Shannon Hui [...] call. Shannon Hui RN documented in this encounterMercer County Community Hospital12-13-2024 History of Present illness Narrative* César Quintero, - 09/03/2024 10:47 AM EST Elements copied from Brendon Coppola APRN.TIER IN note dated 12/16/2023 have been reviewed and [...] that 15% of total events have the RT00yfp side scatter properties of lymphocytes. Interpretation: The [...] Rash, GI Upset Urticarial rash, seen in [place] [facility] Latex Swelling Lisinopril Swelling Nafcillin Itching [...] Heart Father other (Other) Father Heart Brother [place], aneurysm Migraines Daughter Macular Degen Maternal Aunt [...] necessary. César Quintero DO documented in this encounterMercer County Community Hospital12-06-2024 History of Present illness Narrative* Dannielle Doll [...] PATIENT PRESENTS WITH AN IMPLANTABLE OR ATTACHED DIRECTOR PAYER: No ALLERGIES: Reviewed and unchanged CONTRAST ALLERGY: [...] 2024 TIME: 11:44 AM documented in this encounterMercer County Community Hospital11-21-2024 History of Present illness Narrative* Barbara Owusu, [...] PATIENT PRESENTS WITH AN IMPLANTABLE OR ATTACHED DIRECTOR PAYER: No ALLERGIES: Reviewed and unchanged CONTRAST ALLERGY: NO. EXAM: MRI - CONTRAST TYPE: GROUP II PERIPHERAL IV DATA: Ambulatory: A peripheral IV was started in the Left antecubital site with a Angio cath: 22 gauge. RADIOLOGY DEPARTMENT: MR; Exam(s) Completed: Head: Routine Brain SIGNATURE: RT Tanner(R) PATIENT NAME: Lisa Up DATE: August 12, 2024 TIME: 12:57 PM documented in this encounterMercer County Community Hospital11-20-2024 Telephone encounter Note * Telephone Encounter - [...] stated above Protocols used: Blood Pressure - Uvk-CSPIS-IB [facility]11-20-2024 Miscellaneous Notes* Telephone Encounter - Sera Bills [...] stated above Protocols used: Blood Pressure - Urg-ZUWRG-RB documented in this encounterMercer County Community Hospital11-06-2024 Telephone encounter Note * Telephone Encounter - Elmira Monroy MA - 07/28/2024 7:37 PM EST Pt was notified of the results. Pt verbalized understanding. Elmira Monroy MA [facility]11-06-2024 Miscellaneous Notes* Telephone Encounter - Elmira Monroy [...] has resolved. Please advise. documented in this encounterMercer County Community Hospital11-06-2024 Telephone encounter Note * Telephone Encounter - Elida Lozada APRN.CNP - 07/28/2024 4:39 PM EST Urine culture reveals mixed microbes This can occur at time of collection secondary to contamination by skin. Patient can complete ATB, follow up with PCP to repeat specimen. Ensure blood has resolved and infection has resolved. Please advise. [facility] Work Phone: 1(939) 649-445311-06-2024 Telephone encounter Note* Telephone Encounter - Bhavana Limon LPN - 07/28/2024 12:27 PM EST Images from the original note were not included. [facility]11-06-2024 Miscellaneous Notes* Telephone Encounter - Bhavana Limon LPN - 07/28/2024 12:27 PM EST Images from the original note were not included. documented in this encounterMercer County Community Hospital2024 Instructions* Patient Instructions* Helen Bonilla APRN.LEONCIO - [...] Discussed expected course of illness Helen Bonilla APRN.[employer]ER IN [facility] PATIENT INFO BLADDER INFECTION OVERVIEW [...] actually have an infection. documented in this encounterMercer County Community Hospital2024 History of Present illness Narrative* Helen Bonilla APRN.LEONCIO - 07/27/2024 2:05 PM EST Subjective HPI Lisa Up is a 78 year old [...] NEISHA VAGINAL HYSTERECTOMY ALLERGIES Covid-19 Vaccine, Mrna, [id number], Lnp-S (Moderna); Adhesive; Erythromycin; Latex; Lisinopril; Nafcillin; [...] Heart Father other (Other) Father Heart Brother [place], aneurysm Migraines Daughter Macular Degen Maternal Aunt [...] Discussed expected course of illness Helen Bonilla APRN.TIER IN documented in this encounterMercer [facility] Hospital2024 Instructions* Patient Instructions* Missy Hirsch PA-C - [...] Feverfew: Feverfew is a common garden herb [place] and popular in [facility] as a treatment for disorders typically controlled [...] pepperoni, Pickled cassidy Pods of broad vázquez (Beninese beans, Yoruba pea pods, Kinyarwanda (jeremi) beans, parson and navy beans Ripe [...] too muchlight. These can be obtained at [employer] or [employer]: see list above. 2. Limit use of acute treatments (zfww-eax-vncbfxz medications, triptans, etc.) to no more than [...] and quiet environment. Relax and reduce stress. Lp[employer]apj[employer]Obzah is a free tanja that can instruct you on some simple relaxtionand breathing techniques. Http://[employer] is a free website that provides teaching [...] and will be handling your phone calls, [facility]st Messages and inquiries, if any. Unless explicitly told otherwise at the time of your office visit, your study results and ensuing treatment plans will be released via [employer] and discussed during your follow-up appointment. MyChart: Please ask the schedulers to give you an activation code. The main way of communication isby [facility] ([facility])hart rather than phone lines, so if you have not signed up, please do so. [employer] is also theway that you can review your labs and testing. We are not able to contact everyone to tell them results are normal. If you do not hear back from us regarding testing you have had, it should be considered normal or within normal range. If you have any questions about the results, you are free to message us. [employer] is meant for simple questions regarding medications, possible side effects, or other simplestraight forward questions in limited sentences, rather than multiple paragraphs of discussion. [employer] is not meant for, or efficient for [...] do not comment on most testing on [employer] in a message or commentary unless there [...] you with this process. documented in this encounterMercer County Community Hospital2024 History of Present illness Narrative* Missy Hirsch PA-C - 07/27/2024 12:14 PM EST Images from the original note were not included. [facility] for General Neurology Name: Lisa Up [...] sooner should any symptoms change or worsen. Missy Hirsch PA-C Encounter Diagnosis ICD-10-CM 1. Worsening [...] Lumbar Intervertebral Disc Diarrhea History of Cholecystectomy Long-Term Current Use of Anticoagulant Therapy Migraine Headache [...] Rash, GI Upset Urticarial rash, seen in [place] [facility] Latex Swelling Lisinopril Swelling Nafcillin Itching 06/29/21 negative penicillin skin testing. Passed oral amoxicillin challenge. Nifedipine Rash Norvasc [Amlodipine* Swelling Wasps Mental Status Change, Rash FAMILY HISTORY Problem Relation Age of Onset Heart Mother Cancer Mother lung Heart Father other (Other) Father Heart Brother [place], aneurysm Migraines Daughter Macular Degen Maternal Aunt PAST SURGICAL HISTORY Procedure Laterality Date ABDOMINAL SURGERY HX ARTHRP KNE CONDYLE&PLATU MEDIAL&LAT COMPARTMENTS February2010 Knee replacement, total, Left ARTHRP KNE CONDYLE&PLATU MEDIAL&LAT COMPARTMENTS 07/2010 Knee replacement, total, Right BACK SURGERY HX COLONOSCOPY FLX DX W/COLLJ SPEC WHEN PFRMD 06/05/2011 Colonoscopy COLONOSCOPY FLX DX W/COLLJ SPEC WHEN PFRMD N/A 12/04/2016 ESOPHAGOGASTRODUODENOSCOPY TRANSORAL DIAGNOSTIC N/A 12/04/2016 UTILICASE FILTER 2018 INSJ TUNNELED CTR VAD W/SUBQ [...] Finger Abduction 5 5 Slight decrease in medicaid analyst strength bilaterally at 4+/5. Right Left Hip [...] Desk Reference: National Heart, Lung, and Blood [place]. National Institutes of Health. 2001: NIH Publication [...] acute intracranial abnormality. Specifically no acute hemorrhage. Oxyhydrogen Welder: IVAN Transcribe Date/Time: Oct 22 2019 1:28P [...] hemorrhage. Discussed with Dr. Salinas at 5:21. Oxyhydrogen Welder: IVAN Transcribe Date/Time: May 02 2019 5:10A Dictated by : DIONY SOMERS MD This examination was interpreted and the report reviewed and electronically signed by: DIONY SOMERS MD on May 02 2019 5:22AM EST , and CTA Head and/or Neck - Last 2 CTA HEAD W IVCON Exam End: 05/02/2019 6:04 AM (Final result) Impression: IMPRESSION: No intracranial branch occlusion or significant stenosis. Oxyhydrogen Welder: IVAN Transcribe Date/Time: May 02 2019 6:07A Dictated by : DIONY SOMERS MD This examination was interpreted and the report reviewed and electronically signed by: DIONY SOMERS MD on May 02 2019 6:13AM EST This note was dictated using [employer] speech recognition software and may contain some [...] which included preparing to see the patient, umds-bw-ajpi patient care, completing clinical documentation, obtaining and/or reviewing separately obtained history, performing a medically appropriate examination, counseling and educating the pat ient/family/caregiver, and ordering medications, tests, or procedures. documented in this encounterMercer County Community Hospital10-23-2024 Instructions* Patient Instructions* Franklyn Juares MD - 07/14/2024 9:23 AM EDT If you have any questions please contact our office at [phone]. After office hours or on the weekend, please call Dr. Juares on his cell phone at [phone]. documented in this encounterMercer County Community Hospital10-23-2024 History of Present illness Narrative* Franklyn Juares [...] of its relevant components. documented in this encounterMercer County Community Hospital10-18-2024 History of Present illness Narrative* Rose Marie [...] PATIENT PRESENTS WITH AN IMPLANTABLE OR ATTACHED DIRECTOR PAYER: No RADIOLOGY DEPARTMENT: Mammography PERIPHERAL IV DATA: Not applicable SIGNED BY: RT Sharla(R) July 09, 2024 11:16 AM documented in this encounterMercer County Community Hospital10-15-2024 Instructions* Patient Instructions* Judith Pickard APRN.CNP - 07/06/2024 3:18 PM EDT 1) Keep follow up with me in November, cancel 2 week 2) Continue meclizine 2 x day 3) Consult neurology for dizziness 4) Ear wax kit given documented in this encounterMercer County Community Hospital10-15-2024 History of Present illness Narrative* Judith Pickard APRN.CNP - 07/06/2024 2:56 PM EDT This is a 78 year old female who presents today with: Patient presents with: ER F/U: [facility] 07/04/24 Hypertention HISTORY OF PRESENT ILLNESS: Lisa Up is a 78 year old female. Patient presents with: ER F/U: [facility] 07/04/24 Hypertention Two days after starting prednisone, she became very flushed. No chest pain or dyspnea. Went to [facility] ER and they did complete work-up including [...] NEISHA VAGINAL HYSTERECTOMY ALLERGIES Covid-19 Vaccine, Mrna, [id number], Lnp-S (Moderna); Adhesive; Erythromycin; Latex; Lisinopril; Nafcillin; [...] Heart Father other (Other) Father Heart Brother [place], aneurysm Migraines Daughter Macular Degen Maternal Aunt [...] as needed for worsening/no improvement. Judith Pickard APRN.TIER IN documented in this encounterMercer County Community Hospital10-13-2024 Telephone encounter Note * Telephone Encounter - [...] unsteady gait) Protocols used: Blood Pressure - Culc-OWAMF-BS [facility]10-13-2024 Miscellaneous Notes* Telephone Encounter - Layla Malave [...] unsteady gait) Protocols used: Blood Pressure - Dqxr-HCDXM-AS documented in this encounterMercer County Community Hospital10-11-2024 Instructions* Patient Instructions* Judith Pickard APRN.CNP - 07/02/2024 12:02 PM EDT 1) Please try to move up appt. With junior media buyer. 2) Augmentin 2 x day for 10 days 3) Prednisone taper- follow instruction 4) Meclizine 25 mg up to 3 x day but at least 2 x day until dizziness is better 5) Follow up in 2 weeks documented in this encounterMercer County Community Hospital10-11-2024 History of Present illness Narrative* Judith Pickard [...] NEISHA VAGINAL HYSTERECTOMY ALLERGIES Covid-19 Vaccine, Mrna, [id number], Lnp-S (Moderna); Adhesive; Erythromycin; Latex; Lisinopril; Nafcillin; [...] Heart Father other (Other) Father Heart Brother [place], aneurysm Migraines Daughter Macular Degen Maternal Aunt [...] nerves III- XII intact, + nystagmus No dfzaai-or-ufra ataxia Generalized weakness Psychiatric: Comments: Poor judgement, [...] improvement. Judith Pickard APRN.LEONCIO documented in this encounterMercer County Community Hospital10-10-2024 Telephone encounter Note * Telephone Encounter - Tima Benavides RN - 07/01/2024 8:49 AM EDT Pt called and is notified of providers results and instructions. Pt voices understanding. Tima Benavides RN [facility]10-10-2024 Miscellaneous Notes* Telephone Encounter - Tima Benavides [...] with. Kimberly Obregon LPN documented in this encounterMercer County Community Hospital10-10-2024 Telephone encounter Note * Telephone Encounter - Judith Pickard APRN.CNP - 07/01/2024 7:57 AM EDT Have her increase losartan to 100 mg daily (can take 2 of the 50 mg until her appt.. [facility]10-09-2024 Telephone encounter Note* Telephone Encounter - Kimberly [...] she is scheduled with. Kimberly Obregon LPN [facility]09-26-2024 Note* Addendum Note - Judith Pickard APRN.CNP - 06/17/2024 12:20 PM EDTAddended by: JUDITH PICKARD on: 06/17/2024 12:20 PM Modules accepted: Orders [facility]09-26-2024 Miscellaneous Notes* Addendum Note - Judith Pickard APRN.CNP - 06/17/2024 12:20 PM EDTAddended by: JUDITH PICKARD on: 06/17/2024 12:20 PM Modules accepted: Orders documented in this encounterMercer County Community Hospital09-26-2024 Instructions* Patient Instructions* Judith Pickard APRN.CNP - 06/17/2024 12:10 PM EDT 1) Consult uro- gynecology (closest place) 2) OTC minoxidil topically to hair 3) Follow up in 6 months documented in this encounterMercer County Community Hospital09-26-2024 History of Present illness Narrative* Judith Pickard [...] NEISHA VAGINAL HYSTERECTOMY ALLERGIES Covid-19 Vaccine, Mrna, [id number], Lnp-S (Moderna); Adhesive; Erythromycin; Latex; Lisinopril; Nafcillin; [...] Heart Father other (Other) Father Heart Brother [place], aneurysm Migraines Daughter Macular Degen Maternal Aunt [...] improvement. Judith Pickard APRN.CNP documented in this encounterMercer County Community Hospital08-27-2024 Instructions* Patient Instructions* Judith Pickard APRN.CNP - 05/18/2024 2:45 PM EDT 1) Keep appt. 06/17 2) Stop clonidine 3) Decrease gabapentin to bedtime only, send message next week how you feel. Will likely discontinue documented in this encounterMercer County Community Hospital08-27-2024 History of Present illness Narrative* Judith Pickard APRN.CNP - 05/18/2024 2:28 PM EDT This is a 78 year old female who presents today with: Patient presents with: ER F/U: [facility] 05/08/24 HISTORY OF PRESENT ILLNESS: Lisa Up is a 78 year old female. Patient presents with: ER F/U: [facility] 05/08/24 Walking to the bathroom, unsteady. Fell- passed out. Went to the emergency room at [facility], had a complete workup including a [...] date: VAGINAL HYSTERECTOMY ALLERGIES Covid-19 Vaccine, Mrna, [id number], Lnp-S (Moderna); Adhesive; Erythromycin; Latex; Lisinopril; Nafcillin; [...] Heart Father other (Other) Father Heart Brother [place], aneurysm Migraines Daughter Macular Degen Maternal Aunt [...] as needed for worsening/no improvement. Judith Pickard APRN.TIER IN documented in this encounterMercer County Community Hospital08-21-2024 Telephone encounter Note * Telephone Encounter - Felicia West LPN - 05/12/2024 6:58 PM EDT Patient notified.Felicia West LPN [facility]08-21-2024 Miscellaneous Notes* Telephone Encounter - Felicia West LPN - 05/12/2024 6:58 PM EDT Patient notified.Felicia West LPN * Telephone Encounter - Sathya Rajan MD - 05/12/2024 6:54 PM EDT Urine culture did not show a clear infection. Finish antibiotic and follow up with PCP, urology, orGYN for recheck of urine. documented in this encounterMercer County Community Hospital08-21-2024 Telephone encounter Note * Telephone Encounter - Sathya Rajan MD - 05/12/2024 6:54 PM EDT Urine culture did not show a clear infection. Finish antibiotic and follow up with PCP, urology, orGYN for recheck of urine. [facility] Work Phone: 1(252) 602-975008-20-2024 Instructions* Patient Instructions* Enid Potter APRN.CNP - [...] severe or concerning symptoms documented in this encounterMercer County Community Hospital08-20-2024 History of Present illness Narrative* Enid Potter [...] plan. Enid Potter APRN.CNP documented in this encounterMercer County Community Hospital08-12-2024 Instructions* Patient Instructions* Judith Pickard APRN.CNP - 05/03/2024 11:04 AM EDT 1) Fiber once a day with a full glass of water 2) Decrease omeprazole to once a day 3) Decrease clonidine to 0.1 mg 2 x day or 0.2 mg once a day 4) Follow up in 6 weeks documented in this encounterMercer County Community Hospital08-12-2024 History of Present illness Narrative* Judith Pickard [...] 12/04/2016: ESOPHAGOGASTRODUODENOSCOPY TRANSORAL DIAGNOSTIC; N/A No date: UTILICASE FILTER Comment: 201806/05/2022: INSJ TUNNELED CTR VAD W/SUBQ PORT AGE 3 YR/> No date: JOINT REPLACEMENT HX 07/30/2022: L'SCOPE CHOLECYSTECTOMY Comment: Dr Gonzalez 1985: NEPHRECTOMY PARTIAL Comment: Nephrectomy, partial left (benign) 06/2018: PAST SURGICAL HISTORY OF Comment: lumbar burger with wound infection No date: TONSILLECTOMY HX 1985: TOTAL ABDOMINAL HYSTERECT W/WO RMVL TUBE OVARY Comment: Hysterectomy, NEISAH No date: VAGINAL HYSTERECTOMY ALLERGIES Covid-19 Vaccine, Mrna, [id number], Lnp-S (Moderna); Adhesive; Erythromycin; Latex; Lisinopril; Nafcillin; [...] Heart Father other (Other) Father Heart Brother [place], aneurysm Migraines Daughter Macular Degen Maternal Aunt [...] improvement. Judith Pickard APRN.LEONCIO documented in this encounterMercer County Community Hospital08-08-2024 History and physical note * Zeny Crowder [...] for this visit. ALLERGIES: Covid-19 Vaccine, Mrna, [id number], Lnp-S (Moderna); Adhesive; Erythromycin; Latex; Lisinopril; Nafcillin; [...] Heart Father other (Other) Father Heart Brother [place], aneurysm Migraines Daughter Macular Degen Maternal Aunt REVIEW OF SYMPTOMS: The review of systems data was entered by the nurse and reviewed by wa Nursing Notes: Ana Hernandez RN 03/29/2024 2:08 [...] (97.9 F), height 160 cm (5' 3), .3 kg (234 lb 6.4 oz), SpO2 94%. [...] DATE: April 29, 2024 TIME: 11:44 AM [facility]08-08-2024 History and physical note* Zeny Crowder MD [...] for this visit. ALLERGIES: Covid-19 Vaccine, Mrna, [id number], Lnp-S (Moderna); Adhesive; Erythromycin; Latex; Lisinopril; Nafcillin; [...] Heart Father other (Other) Father Heart Brother [place], aneurysm Migraines Daughter Macular Degen Maternal Aunt REVIEW OF SYMPTOMS: The review of systems data was entered by the nurse and reviewed by wa Nursing Notes: Ana Hernandez RN 03/29/2024 2:08 [...] (97.9 F), height 160 cm (5' 3), kuzvas050.3 kg (234 lb 6.4 oz), SpO2 94%. [...] 2024 TIME: 11:44 AM documented in this encounterMercer County Community Hospital08-08-2024 Nurse Note* Mercedes Malave RN - 04/29/2024 12:29 PM EDT pt arrived to phase 2 resting on left side. Daughter at bedside. SR up x 2, call light in reach. Mercedes Malave RN [facility]08-08-2024 Nurse Note* Mercedes Malave RN - 04/29/2024 12:29 PM EDT pt arrived to phase 2 resting on left side. Daughter at bedside. SR up x 2, call light in reach. Mercedes Malave RN documented in this encounterMercer County Community Hospital08-08-2024 Note* Discharge Instr - Nursing - Mercedes Malave RN - 04/29/2024 12:28 PM EDT The patient received a copy of Colonoscopy discharge instructions that contain information for how to contact the physician who performed the procedure and when to seek medical care. [facility]08-08-2024 Miscellaneous Notes* Discharge Instr - Nursing - Mercedes Malave RN - 04/29/2024 12:28 PM EDT The patient received a copy of Colonoscopy discharge instructions that contain information for how to contact the physician who performed the procedure and when to seek medical care. documented in this encounterMercer County Community Hospital08-07-2024 Telephone encounter Note * Telephone Encounter - Rossana Escalona LPN - 04/28/2024 9:59 AM EDT Noted. Rossana Escalona LPN [facility]08-07-2024 Miscellaneous Notes* Telephone Encounter - Rossana Escalona [...] you. Brendon Coppola APRN.LEONCIO documented in this encounterMercer County Community Hospital08-07-2024 Telephone encounter Note * Telephone Encounter - María Elena Louis - 04/28/2024 9:23 AM EDT Spoke with patient and scheduled 4 mo appointments - lab, ct, ov. She states due to transportation, she will drop in for LDH/Uric Acid lab. She wasn't sure when daughter would be able to bring her this week. [facility] Work Phone: 1(571) 914-688308-05-2024 Telephone encounter Note* Telephone Encounter - Brendon Coppola APRN.CNP - 04/26/2024 2:[address] abd/pelvis with Dr. Quintero. Pt. needs labs-LDH/uric acid soon. CT chest/abd/pelvis in 4 months then OV with CBC/CMP/LDH/Uric acid with Dr. Quintero. Thank you. Brendon Coppola APRN.TIER IN [facility]07-29-2024 History of Present illness Narrative* Bozena Hirsch RN - 04/19/2024 7:14 PM EDT Transitional Care Management (TCM) Follow-Up Note PCP Update / Actionable Items Pt states diarrhea much improved but now has a cold - started yesterday , feeling tired and congested. Encouraged rest and hydration. Pt to contact PCP ' s office with any new or worsening symptoms. Patient Source: Vpa-ro-Upxapyw (OON) Discharge Pt discharged from [facility] on 03/26/24. Admitted for: Diarrhea , [...] 19, 2024 7:16 PM documented in this encounterMercer County Community Hospital07-25-2024 History of Present illness Narrative* Elida Desir [...] PATIENT PRESENTS WITH AN IMPLANTABLE OR ATTACHED DIRECTOR PAYER: No RADIOLOGY DEPARTMENT: Ultrasound PERIPHERAL IV DATA: Not applicable SIGNED BY: Elida Desir RDMS RVT April 15, 2024 2:12 PM documented in this encounterMercer County Community Hospital07-25-2024 History of Present illness Narrative* Dannielle Doll [...] PATIENT PRESENTS WITH AN IMPLANTABLE OR ATTACHED DIRECTOR PAYER: No ALLERGIES: Reviewed and unchanged CONTRAST ALLERGY: [...] 2024 TIME: 2:56 PM documented in this encounterMercer County Community Hospital07-22-2024 History of Present illness Narrative* Bozena Hirsch RN - 04/12/2024 1:54 PM EDT TRANSITION CARE MANAGEMENT (TCM) FOLLOW-UP NOTE Provider Action/FYI Patient identified by name and date of : YES Spoke to patient Discharge Network Status: Kml-eh-Wqevotj (OON) Discharge Summary: Pt discharged from [facility] on 03/26/24. Admitted for: Diarrhea , [...] concerns to call her PCP 's office. Immigration Officer plan for next outreach: TCM will continue to follow. NATE Education Ordered -: Alanna Hirsch RN April 12, 2024 1:54 PM documented in this encounterMercer County Community Hospital07-18-2024 Instructions* Patient Instructions* Judith Pickard APRN.CNP - 04/08/2024 1:16 PM EDT 1) Meclizine 25 mg every 8 hours as needed for dizziness 2) Consult physical therapy for vestibular therapy 3) Keep follow up on 05/03/24 documented in this encounterMercer County Community Hospital07-18-2024 History of Present illness Narrative* Judith Pickard [...] NEISHA VAGINAL HYSTERECTOMY ALLERGIES Covid-19 Vaccine, Mrna, [id number], Lnp-S (Moderna); Adhesive; Erythromycin; Latex; Lisinopril; Nafcillin; [...] Heart Father other (Other) Father Heart Brother [place], aneurysm Migraines Daughter Macular Degen Maternal Aunt [...] as needed for worsening/no improvement. Judith Pickard APRN.TIER IN documented in this encounterMercer County Community Hospital07-18-2024 Telephone encounter Note * Telephone Encounter - [...] fluids daily). Protocols used: Blood Pressure - [id number] [facility]07-18-2024 Miscellaneous Notes* Telephone Encounter - Yarely Lee [...] fluids daily). Protocols used: Blood Pressure - Gxg-EAGCI-OM documented in this encounterMercer County Community Hospital07-15-2024 History of Present illness Narrative* Kim Black [...] YES Spoke to patient Discharge Network Status: Ira-ks-Waowbvk (OON) Discharge Summary: Pt discharged from [facility] on 03/26/24. Immigration Officer plan for next outreach: No further follow up needed at this time NATE Education Ordered -: No Kim Black RN April 05, 2024 10:22 AM documented in this encounterMercer County Community Hospital07-12-2024 History of Present illness Narrative* Sylvia Lizama MD - 04/02/2024 2:08 PM EDT Patient presents with: Transition Of Care HPI: Patient presents today for office visit for TCM: HOSPITAL/ER FOLLOW UP: Reason for visit: Diarrhea Which facility: [facility] Date of visit: 03/24/24 to 03/27/24 Diagnosis: [...] Rash, GI Upset Urticarial rash, seen in [place] [facility] Latex Swelling Lisinopril Swelling Nafcillin Itching [...] Heart Father other (Other) Father Heart Brother [place], aneurysm Migraines Daughter Macular Degen Maternal Aunt [...] weeks to reassess bp. documented in this encounterMercer County Community Hospital07-12-2024 History of Present illness Narrative* Zeny Crowder [...] for this visit. ALLERGIES: Covid-19 Vaccine, Mrna, [id number], Lnp-S (Moderna); Adhesive; Erythromycin; Latex; Lisinopril; Nafcillin; Nifedipine; Norvasc [Amlodipine Besylate]; and Wasps PERSONAL HISTORY: Social History Tobacco Use Smoking status: Never Smokeless tobacco: Never Vaping Use Vaping Use: Never used Substance Use Topics Alcohol use: No Drug use: No FAMILY HISTORY: FAMILY HISTORY Problem Relation Age of Onset Heart Mother Cancer Mother lung Heart Father other (Other) Father Heart Brother [place], aneurysm Migraines Daughter Macular Degen Maternal Aunt REVIEW OF SYMPTOMS: The review of systems data was entered by the nurse and reviewed by wa Nursing Notes: Ana Hernandez RN 03/29/2024 2:08 [...] (97.9 F), height 160 cm (5' 3), ysnejw114.3 kg (234 lb 6.4 oz), SpO2 94%. [...] Zeny Crowder III, MD documented in this encounterMercer County Community Hospital07-09-2024 Telephone encounter Note * Telephone Encounter - Ebony Caro OCCA - 03/30/2024 11:44 AM EDT TC to patient who is informed of below. Patient to call in one week with BP readings. SMITA Cao [facility]07-09-2024 Miscellaneous Notes* Telephone Encounter - Ebony Caro OCCA - 03/30/2024 11:44 AM EDT TC to patient who is informed of below. Patient to call in one week with BP readings. SMITA Coa * Telephone Encounter - Sylvia Lizama MD [...] Friday with PCP given. documented in this encounterMercer County Community Hospital07-09-2024 Telephone encounter Note * Telephone Encounter - Sylvia Lizama MD - 03/30/2024 11:34 AM EDT Ok better. Call in bp list in one week [facility]07-09-2024 Telephone encounter Note* Telephone Encounter - Tima Benavides RN - 03/30/2024 11:01 AM EDT Pt called in with BP 140/74 HR 66. Pt denies any dizziness or headache. States she feels fine rightnow. [facility]07-09-2024 Telephone encounter Note* Telephone Encounter - Glo Low LPN - 03/30/2024 9:38 AM EDT Phoned patient went over notes from Dr Lizama with understanding. She will call bp reading back in few hours. [facility]07-09-2024 Telephone encounter Note* Telephone Encounter - Sylvia Lizama MD - 03/30/2024 9:27 AM EDT Take meds this am and recheck bp in a few hours after. Call it back in. [facility]07-09-2024 Telephone encounter Note* Telephone Encounter - Glo Low LPN - 03/30/2024 8:57 AM EDT Patient calling she said was told to call Dr Lizama with her blood pressure reading this morning. Shechecked at 830 am was 197/94 she did not write down the pulse, has not taken any of her medicationsyet this morning. Reminder of appt on Friday with PCP given. [facility]07-08-2024 Nurse Note* Ana Hernandez RN - 03/29/2024 2:44 PM EDT This Nurse reviewed and provided patient with copy of written instructions. The patient verbalized understanding and was given a number for questions. Ana Hernandez RN [facility]07-08-2024 Nurse Note* Ana Hernandez RN - 03/29/2024 [...] 12/04/2016 Ana Hernandez RN documented in this encounterMercer [facility]07-[facility] Nurse Note* Ana Hernandez RN - 03/29/2024 [...] 07/08/2023 Last Colonoscopy: 12/04/2016 Ana Hernandez RN [facility]07-08-2024 History of Present illness Narrative* Talia Silver [...] symptoms. Pt noted to be positive at [place] [facility]. for Norovirus. States stools becoming a [...] gen surg f/u SUMMARY: Discharge Network Status: Own-az-Ikxlccs (OON) Discharge Pt discharged from [facility] on 03/26/24. Admitted for: Diarrhea , chills Copied from Care everywhere : LISA UP, is a 78-year-old female with history of hypertension, GERD, DVT, hypothyroidism morbid obesity, RLS who presented to [facility] ED 03/24/2024 due to diarrhea and [...] RN and I am calling from the [facility] on behalf of yourPCP, Sylvia Lizama MD [...] her stomach and for BP while at [place]. Resumed hydralazine BID and Coreg. Do you [...] like to speak with a social work team lead to help give you support for any [...] I will send your request to a project controls scheduler who will contact and assist you [...] 29, 2024 11:02 AM documented in this encounterMercer County [facility]07-05-2024 [facility] Medical Records Department [address] [place] [id number] Discharge Summary 03/26/24 1249 MR#: [id number] Acct: [id number] Name: LISA UP Rep #: [id number] : 1945 78 From: Kenyon Joiner MD PCP: Dr. Sylvia Lizama MD Status:ADM IN [facility] Prov[facility] Date of Admission: 03/24/24 Primary Care [...] hypothyroidism morbid obesity, RLS who presented to [facility] ED 03/24/2024 due to diarrhea and [...] 03/26/24 06:22 Laboratory: L (more content not included)...[facility]07-03-2024 Telephone encounter Note* Telephone Encounter - Gini Ayala APRN.CNP - 03/24/2024 12:34 PM EDT Noted. Gini Ayala APRN.CNP [facility]07-03-2024 Miscellaneous Notes* Telephone Encounter - Gini Ayala APRN.CNP - 03/24/2024 12:34 PM EDT Noted. Gini Ayala APRN.CNP * Telephone Encounter - Tima Benavides RN - 03/24/2024 8:56 AM EDT Pt called and is notified of providers results and instructions. Pt voices understanding. Pt statesher kids are going to pick her up and take her to [facility]. I let her know provider would look [...] that long. Please advise. documented in this encounterMercer County [facility] Hospital07-03-2024 Telephone encounter Note * Telephone Encounter - Tima Benavides RN - 03/24/2024 8:56 AM EDT Pt called and is notified of providers results and instructions. Pt voices understanding. Pt statesher kids are going to pick her up and take her to [facility]. I let her know provider would look for reports. Tima Benavides RN [facility]07-03-2024 Telephone encounter Note* Telephone Encounter - Gini Ayala APRN.CNP - 03/24/2024 8:29 AM EDT If she is feeling more weak, then I would consider going into the ER, as she may need additional labwork and hydration. Gini Ayala APRN.TIER IN [facility]07-03-2024 Telephone encounter Note* Telephone Encounter - Hui [...] she can wait that long. Please advise. [facility]07-02-2024 Telephone encounter Note* Telephone Encounter - Gorge Melendrez LPN - 03/23/2024 2:19 PM EDT Pt notified. She verbalized understanding. Gorge Melendrez LPN [facility]07-02-2024 Miscellaneous Notes* Telephone Encounter - Gorge Melendrez [...] inflammation. Gini Ayala APRN.CNP documented in this encounterMercer County Community Hospital07-02-2024 Telephone encounter Note * Telephone Encounter - [...] for causes of inflammation. Gini Ayala APRN.CNP [facility]06-28-2024 Telephone encounter Note* Telephone Encounter - Gorge [...] Melendrez LPN March 19, 2024 1:45 PM [facility]06-28-2024 Miscellaneous Notes* Telephone Encounter - Gorge Melendrez [...] 19, 2024 1:45 PM documented in this encounterMercer County Community Hospital06-24-2024 Instructions* Patient Instructions* Gini Ayala APRN.CNP - 03/15/2024 11:28 AM EDT Start the doxycycline. Continue mucinex. Start probiotics. Stay well hydrated! Stop at lab and get stool containers. documented in this encounterMercer County Community Hospital06-24-2024 History of Present illness Narrative* Gini Ayala [...] NEISHA VAGINAL HYSTERECTOMY ALLERGIES Covid-19 Vaccine, Mrna, [id number], Lnp-S (Moderna); Adhesive; Erythromycin; Latex; Lisinopril; Nafcillin; [...] Heart Father other (Other) Father Heart Brother [place], aneurysm Migraines Daughter Macular Degen Maternal Aunt [...] as needed for worsening/no improvement. Gini Ayala APRN.TIER IN The patient indicates understanding of these issues and agrees with the plan. documented in this encounterMercer County Community Hospital06-24-2024 Telephone encounter Note * Telephone Encounter - [...] 30 days. Protocols used: Weakness (Generalized) and Mtjeptw-VLVCF-YA [facility]06-24-2024 Miscellaneous Notes* Telephone Encounter - Abril [place]quez [...] 30 days. Protocols used: Weakness (Generalized) and Vqdtrfq-JXGHW-ES documented in this encounterMercer County Community Hospital06-13-2024 Instructions* Patient Instructions* Judith Pickard APRN.CNS - 03/04/2024 11:54 AM EDT 1) Consult GI 2) Labs today 3) Increase psyllium powder to 2 x day 4) Follow up in 3 months documented in this encounterMercer County Community Hospital06-13-2024 History of Present illness Narrative* Judith Pickard [...] NEISHA VAGINAL HYSTERECTOMY ALLERGIES Covid-19 Vaccine, Mrna, [id number], Lnp-S (Moderna); Adhesive; Erythromycin; Latex; Lisinopril; Nafcillin; [...] Heart Father other (Other) Father Heart Brother [place], aneurysm Migraines Daughter Macular Degen Maternal Aunt [...] as needed for worsening/no improvement. Judith Pickard APRN.GRADUATE RESEARCH ASSISTANT documented in this encounterMercer County Community Hospital06-12-2024 Miscellaneous Notes* Telephone Encounter - Yarely Lee [...] No fever, blood in stool Protocols used: Xcurmljk-JZNJX-RV documented in this encounterMercer County Community Hospital06-12-2024 Telephone encounter Note * Telephone Encounter - [...] No fever, blood in stool Protocols used: Glhnbjov-RKKNK-VG [facility]05-30-2024 History of Present illness Narrative* Shaila Rincon APRN.TIER IN - 02/19/2024 1:15 PM EDT Public Health Dietitian offered: Patient declines. Lisa Up is a [...] L3 SAB0 IAB0 Ectopic0 Multiple0 Live Births0 Care Services Manager History LMP: Hysterectomy Age at Menarche: Age at First : Age at Menopause: Care Services Manager History Comments: Sexual Activity: Not Asked; No [...] Heart Father other (Other) Father Heart Brother [place], aneurysm Migraines Daughter Macular Degen Maternal Aunt [...] 02/19/2024 Allergen Noted Reaction COVID-19 VACCINE, MRNA, [id number]*06/29/2021 Anaphylaxis ADHESIVE 06/10/2022 Rash ERYTHROMYCIN 06/08/2013 Rash [...] Level: 3 - Low documented in this encounterMercer County Community Hospital05-16-2024 Instructions* Patient Instructions* Judith Pickard APRN.CNS - 02/05/2024 11:28 AM EDT 1) Paxil 10 mg daily 2) Diclofenac gel 2 x day to left shoulder 3) Follow up in 6 weeks documented in this encounterMercer County Community Hospital05-16-2024 History of Present illness Narrative* Judith Pickard APRN.GRADUATE RESEARCH ASSISTANT - 02/05/2024 11:10 AM EDT This is [...] NEISHA VAGINAL HYSTERECTOMY ALLERGIES Covid-19 Vaccine, Mrna, [id number], Lnp-S (Moderna); Adhesive; Erythromycin; Latex; Lisinopril; Nafcillin; [...] Heart Father other (Other) Father Heart Brother [place], aneurysm Migraines Daughter Macular Degen Maternal Aunt [...] as needed for worsening/no improvement. Judith Pickard APRN.GRADUATE RESEARCH ASSISTANT documented in this encounterMercer County Community Hospital04-25-2024 Telephone encounter Note * Telephone Encounter - YaimaMariza - 01/15/2024 12:05 PM EDT Called and spoke with patient. Scheduled for scans in 3 months. Mariza De Jesus [facility]04-25-2024 Miscellaneous Notes* Telephone Encounter - Mariza Erwin [...] you. Brendon Coppola APRN.LEONCIO documented in this encounterMercer County Community Hospital04-19-2024 Miscellaneous Notes* Telephone Encounter - Anel Schuster MA - 01/09/2024 9:07 AM EDT Fax from pharmacy needs dose clarification on zoloft. Please resend with correct dose instructions Anel Schuster MA documented in this encounterMercer County Community Hospital04-18-2024 Telephone encounter Note * Telephone Encounter - Lou Rincon - 01/08/2024 8:36 AM EDT Left message for patient to return call. When she calls, please advise of Brendon's message below. Lou Rincon [facility]04-18-2024 Telephone encounter Note* Telephone Encounter - Brendon Coppola APRN.CNP - 01/08/2024 8:17 AM EDT Please inform pt. that her LDH is normal so we will repeat her CT abd/pelvis in 3 months. Thank you. Brendon Coppola APRN.CNP [facility]04-17-2024 History of Present illness Narrative* Sylvia Lizama [...] Rash, GI Upset Urticarial rash, seen in [place] [facility] Latex Swelling Lisinopril Swelling Nafcillin Itching [...] Heart Father other (Other) Father Heart Brother [place], aneurysm Migraines Daughter Macular Degen Maternal Aunt [...] of zoloft and prn. documented in this encounterMercer County Community Hospital04-12-2024 Miscellaneous Notes* Telephone Encounter - Brendon Coppola [...] you. Brendon Coppola APRN.LEONCIO documented in this encounterMercer County Community Hospital04-12-2024 Telephone encounter Note * Telephone Encounter - Brendon Coppola APRN.CNP - 01/02/2024 12:22 PM EDT Spoke with pt. See other phone note today regarding labs needed. Brendon Coppola APRN.CNP [facility] Work Phone: 1(459) 840-287204-12-2024 Miscellaneous Notes* Telephone Encounter - Brendon Coppola APRN.CNP - 01/02/2024 12:22 PM EDT Spoke with pt. See other phone note today regarding labs needed. Brendon Coppola APRN.LEONCIO * Telephone Encounter - María Elena Louis - 12/30/2023 10:03 AM EDT Patient is requesting a call from clinical to explain the /3 CT results to her. documented in this encounterMercer County Community Hospital04-09-2024 Telephone encounter Note * Telephone Encounter - María Elena Louis - 12/30/2023 10:03 AM EDT Patient is requesting a call from clinical to explain the /3 CT results to her. [facility] Work Phone: 1(350) 430-694704-03-2024 History of Present illness Narrative* Jacky VenturaDannielle, [...] PATIENT PRESENTS WITH AN IMPLANTABLE OR ATTACHED DIRECTOR PAYER: No ALLERGIES: Reviewed and unchanged CONTRAST ALLERGY: [...] 2023 TIME: 2:20 PM documented in this encounterMercer County Community Hospital02-18-2024 Miscellaneous Notes* Telephone Encounter - Harmony Castillo [...] follow-up with primary care. documented in this encounterMercer County Community Hospital02-16-2024 History of Present illness Narrative* Elida Desir [...] PATIENT PRESENTS WITH AN IMPLANTABLE OR ATTACHED DIRECTOR PAYER: No RADIOLOGY DEPARTMENT: Ultrasound PERIPHERAL IV DATA: Not applicable SIGNED BY: Elida Desir RDMS [facility] November 07, 2023 11:06 AM documented in this encounterMercer County Community Hospital02-14-2024 History of Present illness Narrative* Darrian Key PA - 2023 2:42 PM EST This note was created using Modafirmariter. Subjective Lisa Up is a 78 year [...] N/A 12/04/2016 ESOPHAGOGASTRODUODENOSCOPY TRANSORAL DIAGNOSTIC N/A 12/04/2016 DAWN FILTER 2019 INSJ TUNNELED CTR VAD W/SUBQ PORT AGE 3 YR/> 06/05/2022 JOINT REPLACEMENT HX L'SCOPE CHOLECYSTECTOMY 07/30/2022 Dr Gonzalez NEPHRECTOMY PARTIAL 1986 Nephrectomy, partial left (benign) PAST SURGICAL HISTORY OF 06/2018 lumbar burger with wound infection TONSILLECTOMY HX TOTAL ABDOMINAL HYSTERECT W/WO RMVL TUBE OVARY 1985 Hysterectomy, NEISHA VAGINAL HYSTERECTOMY ALLERGIES Covid-19 Vaccine, Mrna, [id number], Lnp-S (Moderna); Adhesive; Erythromycin; Latex; Lisinopril; Nafcillin; [...] Heart Father other (Other) Father Heart Brother [place], aneurysm Migraines Daughter Macular Degen Maternal Aunt [...] ER evaluation. SANDEEP Goff documented in this encounterMercer County Community Hospital02-05-2024 History of Present illness Narrative* Sathya Rajan [...] Rash, GI Upset Urticarial rash, seen in [place] [facility] Latex Swelling Lisinopril Swelling Nafcillin Itching [...] in about 1 week for recheck. Sathya Rajan MD documented in this encounterMercer County Community Hospital12-12-2023 Instructions* Patient Instructions* Franklyn Juares MD - 09/02/2023 9:04 AM EST Continue: Systane Complete solution instill 1 drop 3 times daily Both Eyes. If you have any questions please contact our office at [phone]. After office hours or on the weekend, please call Dr. Juares on his cell phone at [phone]. documented in this encounterMercer County Community Hospital12-12-2023 History of Present illness Narrative* Franklyn Juares [...] an appointment to see Dr[facility] Hollins at [facility] in [place] on 09/08/2023 for refraction and glasses. If [...] diagnosis, and treatment options. documented in this encounterMercer County Community Hospital12-04-2023 Instructions* Patient Instructions* Franklyn Juares MD - 08/25/2023 11:56 AM EST Systane Complete Artificial Tears - Use 1 Drop into both eyes three times a day. documented in this encounterMercer County Community Hospital12-04-2023 History of Present illness Narrative* Franklyn Juares [...] ICD10: H25.813 - Patient recommended to see ux ui designer for updated refraction, if no improvement patient [...] options. Franklyn Juares MD documented in this encounterMercer County Community Hospital11-03-2023 Miscellaneous Notes* Telephone Encounter - Talia Silver LPN - 07/25/2023 3:54 PM EDT Faxed as requested. * Telephone Encounter - Lou Purvis RN - 07/25/2023 12:06 PM EDT Patient calls and states that she needs new orders for CPAP supplies to be faxed to [facility]. Lou Purvis RN documented in this encounterMercer County Community Hospital10-17-2023 Miscellaneous Notes* Letter - Coordinator, Mammography - 07/08/2023 4:21 PM EDT July 09, 2023 PID: [id number] Lisa Up [address] [address] Dear Ms. Up, We are pleased to [...] report will be kept on [facility] at [facility] as part of your permanent medical record and are available for your continuing care. Thank you for allowing us to help in meeting your health care needs. Sincerely, Dr. Peterson Interpreting Radiologist [facility] (Normal over 40) documented in this encounterMercer County Community Hospital10-17-2023 History of Present illness Narrative* Sylvia Lizama [...] Wondering about pain management? Saw previously in [place] for back and legs. 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 12. Valvular heart disease - ICD9: 424.90, ICD10: I38 - check echo. - ECHO Sylvia Lizama MD documented in this encounterMercer County Community Hospital10-17-2023 History of Past illness Narrative* Problem Noted [...] Overview: Added automatically from request for surgery [id number] Lumbar spondylosis 07/18/2017 Overview: Added automatically from request for surgery [id number] Chronic bilateral low back p ain with bilateral sciatica 04/28/2017 11/27/2022 Overview: Added automatically from request for surgery [id number] Obesity due to excess calori es, unspecified [...] of this encounter (statuses as of 07/09/2023) [facility] History of Past illness Narrative* Problem Noted [...] Overview: Added automatically from request for surgery [id number] Lumbar spondylosis 07/18/2017 Overview: Added automatically from request for surgery [id number] Chronic bilateral low back p ain with bilateral sciatica 04/28/2017 11/27/2022 Overview: Added automatically from request for surgery [id number] Obesity due to excess calori es, unspecified [...] of this encounter (statuses as of 07/10/2023) [facility] History of Past illness Narrative* Problem Noted [...] Overview: Added automatically from request for surgery [id number] Lumbar spondylosis 07/18/2017 Overview: Added automatically from request for surgery [id number] Chronic bilateral low back p ain with bilateral sciatica 04/28/2017 11/27/2022 Overview: Added automatically from request for surgery [id number] Obesity due to excess calori es, unspecified [...] of this encounter (statuses as of 07/26/2023) [facility] History of Past illness Narrative* Problem Noted [...] Overview: Added automatically from request for surgery [id number] Lumbar spondylosis 07/18/2017 Overview: Added automatically from request for surgery [id number] Chronic bilateral low back p ain with bilateral sciatica 04/28/2017 11/27/2022 Overview: Added automatically from request for surgery [id number] Obesity due to excess calori es, unspecified [...] of this encounter (statuses as of 07/27/2023) [facility] History of Past illness Narrative* Problem Noted [...] Overview: Added automatically from request for surgery [id number] Lumbar spondylosis 07/18/2017 Overview: Added automatically from request for surgery [id number] Chronic bilateral low back p ain with bilateral sciatica 04/28/2017 11/27/2022 Overview: Added automatically from request for surgery [id number] Obesity due to excess calori es, unspecified [...] of this encounter (statuses as of 08/25/2023) [facility] History of Past illness Narrative* Problem Noted [...] Overview: Added automatically from request for surgery [id number] Lumbar spondylosis 07/18/2017 Overview: Added automatically from request for surgery [id number] Chronic bilateral low back p ain with bilateral sciatica 04/28/2017 11/27/2022 Overview: Added automatically from request for surgery [id number] Obesity due to excess calori es, unspecified [...] of this encounter (statuses as of 09/02/2023) [facility] of Past illness Narrative* Problem Noted [...] Overview: Added automatically from request for surgery [id number] Lumbar spondylosis 07/18/2017 Overview: Added automatically from request for surgery [id number] Chronic bilateral low back p ain with bilateral sciatica 04/28/2017 11/27/2022 Overview: Added automatically from request for surgery [id number] Obesity due to excess calori es, unspecified [...] of this encounter (statuses as of 10/27/2023) [facility] of Past illness Narrative* Problem Noted [...] Overview: Added automatically from request for surgery [id number] Lumbar spondylosis 07/18/2017 Overview: Added automatically from request for surgery [id number] Chronic bilateral low back p ain with bilateral sciatica 04/28/2017 11/27/2022 Overview: Added automatically from request for surgery [id number] Obesity due to excess calori es, unspecified [...] of this encounter (statuses as of 2023) [facility] of Past illness Narrative* Problem Noted [...] Overview: Added automatically from request for surgery [id number] Lumbar spondylosis 07/18/2017 Overview: Added automatically from request for surgery [id number] Chronic bilateral low back p ain with bilateral sciatica 04/28/2017 11/27/2022 Overview: Added automatically from request for surgery [id number] Obesity due to excess calori es, unspecified [...] of this encounter (statuses as of 11/08/2023) [facility] of Past illness Narrative* Problem Noted [...] Overview: Added automatically from request for surgery [id number] Lumbar spondylosis 07/18/2017 Overview: Added automatically from request for surgery [id number] Chronic bilateral low back p ain with bilateral sciatica 04/28/2017 11/27/2022 Overview: Added automatically from request for surgery [id number] Obesity due to excess calori es, unspecified [...] of this encounter (statuses as of 11/09/2023) [facility] of Past illness Narrative* Problem Noted [...] Overview: Added automatically from request for surgery [id number] Lumbar spondylosis 07/18/2017 Overview: Added automatically from request for surgery [id number] Chronic bilateral low back p ain with bilateral sciatica 04/28/2017 11/27/2022 Overview: Added automatically from request for surgery [id number] Obesity due to excess calori es, unspecified [...] of this encounter (statuses as of 12/25/2023) [facility] of Past illness Narrative* Problem Noted [...] Overview: Added automatically from request for surgery [id number] Lumbar spondylosis 07/18/2017 Overview: Added automatically from request for surgery [id number] Chronic bilateral low back p ain with bilateral sciatica 04/28/2017 11/27/2022 Overview: Added automatically from request for surgery [id number] Obesity due to excess calori es, unspecified [...] of this encounter (statuses as of 12/25/2023) [facility] of Past illness Narrative* Problem Noted [...] Overview: Added automatically from request for surgery [id number] Lumbar spondylosis 07/18/2017 Overview: Added automatically from request for surgery [id number] Chronic bilateral low back p ain with bilateral sciatica 04/28/2017 11/27/2022 Overview: Added automatically from request for surgery [id number] Obesity due to excess calori es, unspecified [...] of this encounter (statuses as of 01/02/2024) [facility] of [facility] illness Narrative* Problem Noted [...] Overview: Added automatically from request for surgery [id number] Lumbar spondylosis 07/18/2017 Overview: Added automatically from request for surgery [id number] Chronic bilateral low back p ain with bilateral sciatica 04/28/2017 11/27/2022 Overview: Added automatically from request for surgery [id number] Obesity due to excess calori es, unspecified [...] of this encounter (statuses as of 01/08/2024) [facility] of [facility] Narrative* Problem Noted [...] Overview: Added automatically from request for surgery [id number] Lumbar spondylosis 07/18/2017 Overview: Added automatically from request for surgery [id number] Chronic bilateral low back p ain with bilateral sciatica 04/28/2017 11/27/2022 Overview: Added automatically from request for surgery [id number] Obesity due to excess calori es, unspecified [...] of this encounter (statuses as of 01/09/2024) [facility] History of Present illness Narrative* Noel Guadarrama [...] 08, 2023 11:47 AM documented in this encounterMercer County Community Hospital09-22-2023 History of Present illness Narrative* Prince Fang [...] Heart Father other (Other) Father Heart Brother [place], aneurysm Migraines Daughter Macular Degen Maternal Aunt Social History Tobacco Use Smoking status: Never Smokeless tobacco: Never Vaping Use Vaping Use: Never used Substance Use Topics Alcohol use: No Drug use: No ALLERGIES: ALLERGIES Allergen Reactions Adhesive Rash Blisters and dermatitis from op site dressing and tape Covid-19 Vaccine, M* Anaphylaxis Erythromycin Rash, GI Upset Urticarial rash, seen in [place] [facility] Latex Swelling Lisinopril Swelling Nafcillin Itching [...] which included preparing to see the patient, [id number] patient care, completing clinical documentation, obtaining and/or reviewing separately obtained history, performing a medically appropriate examination, ordering medications, tests, or procedures, independently interpreting results (not separately reported), and communicating resultsto the patient/family/caregiver. Electronically Signed: Prince Fang MD June 13, 2023 10:16 AM documented in this encounterMercer County [facility]09-15-2023 History of Present illness Narrative* Vy Duong, [...] well. Vy Duong Rn documented in this encounterMercer County Community Hospital09-15-2023 History of Present illness Narrative* Dannielle Doll [...] PERIPHERAL IV DATA: power port accessed by Hark SIGNED BY: RT Blanca(R) June 06, 2023 3:57 PM documented in this encounterMercer County Community Hospital09-14-2023 Miscellaneous Notes* Telephone Encounter - Lou Rincon - 06/05/2023 11:01 AM EDT Spoke with patient and scheduled. Lou Rincon * Telephone Encounter - Azalea Link PSS - 06/05/2023 10:50 AM EDT Pt would like to use port for appt on 06/06/[address] @ 9:20 oral / 10:20 scan Please call pt to confirm thank documented in this encounterMercer County Community Hospital08-22-2023 History of Present illness Narrative* Abdullahi Guerra, [...] 1148 Abdullahi Guerra PT documented in this encounterMercer County Community Hospital08-18-2023 History of Present illness Narrative* Abdullahi Guerra [...] 1341 Abdullahi Guerra PT documented in this encounterMercer County Community Hospital08-15-2023 History of Present illness Narrative* Abdullahi Guerra [...] LENCHO Vargas PT, DPT. documented in this encounterMercer County Community Hospital08-08-2023 History of Present illness Narrative* Abdullahi Guerra [...] LENCHO Guerra, PT, DPT. documented in this encounterMercer County Community Hospital08-04-2023 History of Present illness Narrative* Abdullahi Guerra, [...] Session Stop Time : 1104 Sidra Calvert, KENNEL HAND Abdullahi Guerra, PT, DPT. documented in this encounterMercer County Community Hospital07-28-2023 History of Present illness Narrative* Mercy Lemus [...] Heart Father other (Other) Father Heart Brother [place], aneurysm Migraines Daughter Macular Degen Maternal Aunt [...] semispinalis trigger points. Had restricted ribs inflexion. O'liborio's negative, negative Hawkin's. Limited ROM to 95 [...] (CRP) Mercy Lemus PA-C documented in this encounterMercer County Community Hospital07-27-2023 Miscellaneous Notes* Telephone Encounter - Danielle Gregory RN - 04/17/2023 7:06 PM EDT Spoke [...] request. Danielle Gregory RN documented in this encounterMercer County Community Hospital07-27-2023 Instructions* Patient Instructions* Mercy Lemus PA-C - 04/17/2023 4:12 PM EDT Try tizanidine 4mg 1/2 tablet for pain Prednisone as directed. Ice/ moist heat, lineaments, OTC analgesics as needed. documented in this encounterMercer County Community Hospital07-24-2023 History of Past illness Narrative* Problem Noted [...] Overview: Added automatically from request for surgery [id number] Lumbar spondylosis 07/18/2017 Overview: Added automatically from request for surgery [id number] Chronic bilateral low back p ain with bilateral sciatica 04/28/2017 11/27/2022 Overview: Added automatically from request for surgery [id number] Obesity due to excess calori es, unspecified [...] of this encounter (statuses as of 07/27/2023) [facility] History of Past illness Narrative* Problem Noted [...] Overview: Added automatically from request for surgery [id number] Lumbar spondylosis 07/18/2017 Overview: Added automatically from request for surgery [id number] Chronic bilateral low back p ain with bilateral sciatica 04/28/2017 11/27/2022 Overview: Added automatically from request for surgery [id number] Obesity due to excess calori es, unspecified [...] of this encounter (statuses as of 07/27/2023) [facility]07-[facility] History of Present illness Narrative* Suad Joe, RT(R) - 04/03/2023 10:20 AM EDT Radiology Service Progress Note PATIENT NAME: Lisa pU DATE OF SERVICE: April 03, 2023 TIME: [...] 03, 2023 10:18 AM documented in this encounterMercer County Community Hospital07-13-2023 History of Present illness Narrative* Sylvia Lizama [...] Wondering about pain management? Saw previously in [place] for back and legs. Her shoulder is [...] Rash, GI Upset Urticarial rash, seen in [place] [facility] Latex Swelling Lisinopril Swelling Nafcillin Itching [...] Heart Father other (Other) Father Heart Brother [place], aneurysm Migraines Daughter Macular Degen Maternal Aunt [...] CAPSULE Sylvia Lizama MD documented in this encounterMercer County Community Hospital07-05-2023 Miscellaneous Notes* Telephone Encounter - Christina Javed [...] you. Elissa Felipe APRN.LEONCIO documented in this encounterMercer County Community Hospital07-03-2023 Instructions* Patient Instructions* Elissa Felipe APRN.CNP - 03/24/2023 11:24 AM EDT Get xray completed. Continue supportive care at home, Tylenol 650-1000 mg Every 6-8 hours as needed for pain, ice, heat, gentle stretching. May use muscle relaxant as needed for muscle tension. Do not take with pepcid. Follow up documented in this encounterMercer County Community Hospital07-03-2023 History of Present illness Narrative* Elissa Felipe [...] N/A 12/04/2016 ESOPHAGOGASTRODUODENOSCOPY TRANSORAL DIAGNOSTIC N/A 12/04/2016 DAWN FILTER 2019 INSJ TUNNELED CTR VAD W/SUBQ PORT AGE 3 YR/> 06/05/2022 JOINT REPLACEMENT HX L'SCOPE CHOLECYSTECTOMY 07/30/2022 Dr Gonzalez NEPHRECTOMY PARTIAL 1986 Nephrectomy, partial left (benign) PAST SURGICAL HISTORY OF 06/2018 lumbar burger with wound infection TONSILLECTOMY HX TOTAL ABDOMINAL HYSTERECT W/WO RMVL TUBE OVARY 1985 Hysterectomy, NEISHA VAGINAL HYSTERECTOMY ALLERGIES Adhesive; Covid-19 Vaccine, Mrna, [id number], Lnp-S (Moderna); Erythromycin; Latex; Lisinopril; Nafcillin; Nifedipine; [...] Heart Father other (Other) Father Heart Brother [place], aneurysm Migraines Daughter Macular Degen Maternal Aunt [...] APRN.LEONCIO This note was partially generated using Countdown voice recognition system. Note was reviewed for accuracy. There may be minor misspellings or grammar miscues with Countdown voice recognition. documented in this encounterMercer County Community Hospital06-02-2023 Miscellaneous Notes* Telephone Encounter - Talia Silver [...] tooth removal? Please advise documented in this encounterMercer County Community Hospital06-02-2023 History of Present illness Narrative* Franklyn Juares [...] options. Franklyn Juares MD documented in this encounterMercer County Community Hospital04-12-2023 Miscellaneous Notes* Telephone Encounter - Chinyere Shea [...] protocol. Chinyere Shea RN documented in this encounterMercer County Community Hospital04-05-2023 Miscellaneous Notes* Telephone Encounter - Gini Ayala APRN.CNP - 12/25/2022 4:41 PM EDT See office notes. Gini Ayala APRN.CNP * Telephone Encounter - Tima Benavides RN - 12/25/2022 10:11 AM EDT Protocol recommends see provider in 4 hours. Pt scheduled with Gini Ayala VEGETABLE WASHER today at 11 am. Care plan reviewed [...] Postmenopausal. Protocols used: Blister - Foot and Nbkn-EFCYM-JH, Rash or Redness - Qoronjghza-SBHUZ-GI, Rash - Widespread On Tlxur-ROHVM-TB documented in this encounterMercer County Community Hospital04-05-2023 Instructions* Patient Instructions* Gini Ayala APRN.CNP - 12/25/2022 11:42 AM EDT Stop the nifedipine. Start the triamcinolone ointment as needed to the rash. Start the bactroban to the face (mupirocin) Recheck in 1-2 weeks. Let us know if not improving or worsening. documented in this encounterMercer County Community Hospital04-05-2023 Miscellaneous Notes* Telephone Encounter - Talia Silver [...] she willing to do. documented in this encounterMercer County Community Hospital04-05-2023 History of Present illness Narrative* Gini Ayala APRN.TIER IN - 12/25/2022 10:55 AM EDT This is [...] VAGINAL HYSTERECTOMY ALLERGIES Adhesive; Covid-19 Vaccine, Mrna, [id number], Lnp-S (Moderna); Erythromycin; Latex; Lisinopril; Nafcillin; Norvasc [...] Heart Father other (Other) Father Heart Brother [place], aneurysm Migraines Daughter Macular Degen Maternal Aunt [...] as needed for worsening/no improvement. Gini Ayala APRN.TIER IN documented in this encounterMercer County Community Hospital03-30-2023 Miscellaneous Notes* Telephone Encounter - Heaven Sykes [...] change prior to scheduling. documented in this encounterMercer County Community Hospital03-28-2023 History of Present illness Narrative* Anca Almonte [...] Rash, GI Upset Urticarial rash, seen in [place] [facility] Latex Swelling Lisinopril Swelling Nafcillin Itching [...] cc: Anca Lizama MD documented in this encounterMercer County Community Hospital03-28-2023 History of Present illness Narrative* Taramichelle Tsai [...] PM EDT Awaiting protocol and signature Nomad: [id number] Date: 12/12/22 [employer] Mailout Tracking Number: [id number] [employer] Return Tracking Number: [id number] * Estefany HUBER - 12/12/2022 3:13 PM EDT December 12, 2022 An order has been received for Home Sleep Apnea Test (HSAT) from elizabet Mendez [facility] Staff. Visit prep complete. Comments :No The sleep study is scheduled for 12/12/22 . Insurance: Payor: MEDICARE / Plan: MEDICARE A AND B / Product Type: Medicare / Payer/Plan Subscr Sex Relation Sub. Ins. ID Effective Group Num 1. MEDICARE - [place]* LISA UP 1945 Female Self [id number] 10[birth year]08 [address] [facility]* LISA UP F 1945 Female Self [id number] [birth year]17 [id number] Estefany HUBER documented in this encounterMercer County Community Hospital03-20-2023 Instructions* Patient Instructions* Sylvia Lizama MD - 12/09/2022 3:55 PM EDT My chart bp in two weeks. documented in this encounterMercer County Community Hospital03-20-2023 History of Present illness Narrative* Sylvia Lizama [...] Rash, GI Upset Urticarial rash, seen in [place] [facility] Latex Swelling Lisinopril Swelling Nafcillin Itching [...] Heart Father other (Other) Father Heart Brother [place], aneurysm Migraines Daughter Macular Degen Maternal Aunt [...] 24 HR Sylvia Lizama documented in this encounterMercer County Community Hospital03-20-2023 Nurse Note* Talia Silver LPN - 12/09/2022 3:25 PM EDT 12/09/2022: Home BP Cuff Validated. Home BP: 189/98 Office BP: 182/82 documented in this encounterMercer County Community Hospital03-20-2023 History of Present illness Narrative* Dannielle Doll, [...] 09, 2022 3:53 PM documented in this encounterMercer County Community Hospital03-08-2023 History of Present illness Narrative* Sylvia Lizama [...] Rash, GI Upset Urticarial rash, seen in [place] [facility] Latex Swelling Lisinopril Swelling Nafcillin Itching [...] Heart Father other (Other) Father Heart Brother [place], aneurysm Migraines Daughter Macular Degen Maternal Aunt [...] CULTURE Sylvia Lizama MD documented in this encounterMercer County Community Hospital03-06-2023 History of Present illness Narrative* Anca Almonte [...] She had CR on at least excellent IA after 2 cycles. She believes was told after completion of 3 cycles that she will not get any further chemotherapy. She had 1 4 weeks ago and apparently in the treatment area there was an impression to continue for6-8 cycles Patient also was given allopurinol to prevent tumor lysis which has been maintained till currently even after a documented CR or excellent IA with completion of 2 cycles. She was [...] Rash, GI Upset Urticarial rash, seen in [place] [facility] Latex Swelling Lisinopril Swelling Nafcillin Itching [...] cc: Melba Lizama MD documented in this encounterMercer County Community Hospital03-06-2023 Instructions* Patient Instructions* Anca Almonte MD - 11/25/2022 12:18 PM EST Stop allopurinol and increase gabapentin to 300 mg. Three times a day documented in this encounterMercer County Community Hospital03-02-2023 Miscellaneous Notes* Telephone Encounter - LUZ MARIA [...] and is looking forward to going to [place] this Friday. She reports she regularly speaks [...] Completed LUZ MARIA Murray-S documented in this encounterMercer County Community Hospital02-27-2023 Miscellaneous Notes* Telephone Encounter - Benedict Uribe [...] patient. Benedict Uribe MA documented in this encounterMercer County Community Hospital02-27-2023 Miscellaneous Notes* Telephone Encounter - Benedict Uribe [...] patient. Benedict Uribe MA documented in this encounterMercer County Community Hospital02-22-2023 Miscellaneous Notes* Telephone Encounter - Chinyere Shea [...] well and bowels issues documented in this encounterMercer County Community Hospital02-16-2023 History of Present illness Narrative* Mercy Lemus [...] starting chemo August. 10/28/2022 note Brendon Stevensenter TIER IN: HTN/ CVD Cardiovascular interval hx: 05/19/2021 echocardiogram [...] 2.1 cm. No significant valvular disease. 08/14/2020 [facility] pharmacologic myocardial perfusion stress test: Dr. Bee:: [...] Date: BP: 11/07/2022 166/88 10/30/2022 169/69 10/29/2022 168/67[VEGETABLE WASHER aware[ 10/28/2022 168/84 10/03/2022 158/84 10/02/2022 169/81 [...] 4.00 k/uL 1.33 0.43 (L) 0.66 (L) Centre% % 10.9 12.8 10.5 Abs Centre <0.87 k/uL 0.47 0.42 0.43 Eosin% % [...] Heart Father other (Other) Father Heart Brother [place], aneurysm Migraines Daughter Macular Degen Maternal Aunt [...] weeks. Mercy Lemus PA-C documented in this encounterMercer County Community Hospital02-13-2023 Miscellaneous Notes* Telephone Encounter - Sara Lindsay - 11/04/2022 2:31 PM EST Spoke with patient and relayed message. Patient verbalized understanding. Refused appointment this week due to recently having a chemo treatment and is weak. Wanted Dr. Lizama's first available. Scheduled for 11/18/22. Sara Lindsay * Telephone Encounter - Gini Ayala APRN.CNP - 11/04/2022 1:07 PM EST I'm sorry, but she needs a bdym-mv-dvpj appt. We haven't seen her in over [...] agreeable. Please advise patient. documented in this encounterMercer County Community Hospital02-06-2023 History of Present illness Narrative* Brendon Coppola APRN.TIER IN - 10/28/2022 11:33 AM EST Chief Complaint [...] that 15% of total events have the RO70bxj side scatter properties of lymphocytes. Interpretation: The [...] visit. Brendon Coppola APRN.LEONCIO documented in this encounterMercer County Community Hospital01-24-2023 History of Present illness Narrative* Shawna Pederson RN - 10/15/2022 10:50 AM EST [facility] Enrollment Provider Action/FYI: - ckd, htn Patient referred by: [facility] Deyanira Contact made with patient: No - 2nd attempt to reach patient, left another message: Hi my name is Shawna Pederson RN and I am calling from the [facility] on behalf of your PCP, Sylvia Lizama MD.We are excited to share with you a new program to help you manage your health. Please call me back at [phone]. I hope you can take the time to speak with me. (Keep encounter open for additional two business days in case patient calls back. Close encounter if no response by end of second business day) Closing: Could not reach the patient after two attempted outreaches. Immigration Officer to retry patient in one week. END OUTREACH * Shawna Pederson RN - 10/11/2022 5:25 PM EST [facility] Enrollment Provider Action/FYI: - ckd, htn Patient referred by: C Deyanira Contact made with patient: No - Left Message: Hi my name is Shawna Pederson RN and I am calling from the [facility] on behalf of your PCP, Sylvia Lizama MD. We are excited to share with you a new program to help you manage your health. Please call me back at [phone] between the hours of 8am-5pm Friday- Friday. You will receive another phone call from me within the next two business days.I hope you can take the time to speak with me. (Keep encounter open and attempt 2nd outreach in two business days from today) END OUTREACH documented in this encounterMercer County Community Hospital01-13-2023 Miscellaneous Notes* Telephone Encounter - Shannon Hui [...] Dr. Kena Hui RN documented in this encounterMercer County Community Hospital01-12-2023 Nurse Note* Ashley Beauchamp LPN - 10/03/2022 [...] noted. Ashley Beauchamp LPN documented in this encounterMercer County Community Hospital01-11-2023 Miscellaneous Notes* Telephone Encounter - Missy Peralta [...] receiving neulasta on . documented in this encounterMercer County Community Hospital01-10-2023 Miscellaneous Notes* Telephone Encounter - Lou Plascencia [...] as she gets home. documented in this encounterMercer County Community Hospital01-10-2023 History of Present illness Narrative* Edyta Whelan [...] Presentation:8.27AM October 01, 2022 Edyta Whelan RN [id number] documented in this encounterMercer County Community Hospital01-03-2023 History of Present illness Narrative* Dannielle Doll RT(R) - 09/24/2022 11:00 AM EST Radiology Service Progress Note PATIENT NAME: Lisa Up DATE OF SERVICE: September 24, 2022 [...] PERIPHERAL IV DATA: power port accessed by Hark SIGNED BY: RT Blanca(Barbra) September 24, 2022 11:22 AM documented in this encounterMercer County Community Hospital12-09-2022 History of Present illness Narrative* Melba Escudero MD - 08/30/2022 1:24 PM EST PATIENT NAME: Lisa Up. CLINIC NO: [id number]. ATTENDING PHYSICIAN: Melba Escudero MD. DATE OF [...] that 15% of total events have the IB94klp side scatter properties of lymphocytes. Interpretation: The [...] Abs Lymph 1.00 - 4.00 k/uL 1.33 Centre% % 10.9 Abs Centre <0.87 k/uL 0.47 Eosin% % 3.2 Abs [...] with more than 50% of the total dmji-so-kkju time of the visit in counseling / coordination of care. Portions of this documentation were copied and pasted from previous office visit notes in order to provide a cohesive continuity of the history. The note has been reviewed and edited and updated as necessary. Melba Escudero MD Cc: Dr. Sylvia Lizama documented in this encounterMercer County Community Hospital11-30-2022 History of Past illness Narrative* Problem Noted [...] Overview: Added automatically from request for surgery [id number] Lumbar spondylosis 07/18/2017 Overview: Added automatically from request for surgery [id number] Chronic bilateral low back p ain with bilateral sciatica 04/28/2017 11/27/2022 Overview: Added automatically from request for surgery [id number] Obesity due to excess calori es, unspecified [...] of this encounter (statuses as of 07/27/2023) [facility]11[facility] History of Past illness Narrative* Problem Noted [...] Overview: Added automatically from request for surgery [id number] Lumbar spondylosis 07/18/2017 Overview: Added automatically from request for surgery [id number] Chronic bilateral low back p ain with bilateral sciatica 04/28/2017 11/27/2022 Overview: Added automatically from request for surgery [id number] Obesity due to excess calori es, unspecified [...] of this encounter (statuses as of 07/27/2023) [facility] History of Past illness Narrative* Problem Noted [...] Overview: Added automatically from request for surgery [id number] Lumbar spondylosis 07/18/2017 Overview: Added automatically from request for surgery [id number] Chronic bilateral low back p ain with bilateral sciatica 04/28/2017 11/27/2022 Overview: Added automatically from request for surgery [id number] Obesity due to excess calori es, unspecified [...] of this encounter (statuses as of 07/27/2023) [facility]11-28[facility] Miscellaneous Notes* Telephone Encounter - Gorge Melendrez [...] advise. Gorge Melendrez LPN documented in this encounterMercer County Community Hospital11-21-2022 Miscellaneous Notes* Telephone Encounter - Talia Silver LPN - 08/12/2022 12:00 PM EST Call to patient. She was hospitalized in [facility] for acute cholecystitis and discharged 08/04/22. PCP [...] has seen Dr Lizama.) documented in this encounterMercer County Community Hospital11-14-2022 Miscellaneous Notes* Telephone Encounter - Chinyere Shea [...] MD Notification Patient discharged on 08/04/22 from [facility] to Home, self care Primary Cancer Diagnosis: Follicular Lymphoma Admitting Diagnosis: Acute cholecystitis status postcholecystectomy 08/02/2022 Discharge Summary/SBAR reviewed: Yes Handoff Discussed with Transitional Immigration Officer: N/A Psychosocial Risk Factors: None If patient discharged to SNF/Rehab Facility, phone call completed to reinforce discharge instructions and follow up: N/A Call Disposition: Admission unrelated to cancer diagnosis/treatment Per Dr. Escudero, chemotherapy cancelled for this week and keep upcoming appointments as they are. Chinyere Shea RN documented in this encounterMercer County Community Hospital11-10-2022 Instructions* Patient Instructions* Melba Escudero MD - [...] serious illness Are taking any medications (prescription, edzv-lnx-isenpba, vitamins, or herbal products) How will I [...] treatment or prevention of COVID-19 go to https://www.fda.gov/jkqadlxuw-maepeoptekjl-qas- response/caq-uypxl-nzldxzuubr-wra-eajlvq-tbjhtxkyv/ljkabhjpx-ywn-vumrolfftojlc for more information. It is your choice [...] not go away. Report side effects to [employer] at www.fda.gov/medwatch or call 0-462-IIU-5916 or call [facility] . Additional Information If you have questions, visit the website or call the telephone number provided below. Website Telephone number http://www.BookitNow! How can I learn more about COVID-19? Ask your healthcare provider. Visit https://www.cdc.gov/COVID19 Contact your local or state public health department. What is an Emergency Use Authorization? The [place] FDA has made EVUSHELD (tixagevimab co-packaged with cilgavimab) available under an emergency access mechanism called an Emergency Use Authorization EUA. The EUA is supported by a [place] of Health and Human Service (HHS) declaration [...] monohydrate, polysorbate 80, sucrose, water. Distributed by: [employer], [place], [place] Manufactured for: [employer] [place], [place] [employer] 2021. All rightsreserved. documented in this encounterMercer County Community Hospital11-10-2022 Miscellaneous Notes* Telephone Encounter - Melba Escudero MD - 08/01/2022 2:28 PM EST Evusheld (tixagevimab/cilgavimab) Eligibility and Patient Discussion [facility] Formulary Restriction Criteria: Outpatient adults and pediatrics 12 years and older and > 40 kg with ALL of the following: [x] COVID test scheduled: Yes Date: TBD, type of test:Laboratory collected [] Patient has not been exposed to a SARS-COV-2 positive individual ([facility] information on COVID exposure link) [x] Patient [...] 01, 2022 2:31 PM documented in this encounterMercer County Community Hospital11-09-2022 Miscellaneous Notes* Telephone Encounter - Chinyere Shea [...] update provider that she was admitted to [facility] yesterday for gallbladder issuesand is scheduled for gallbladder removal on Friday due to holding eliquis. Please advise patient onhow she will proceed with future appointments, documented in this encounterMercer County Community Hospital11-08-2022 Miscellaneous Notes* Telephone Encounter - Loli Gomze Pss - 07/30/2022 3:44 PM EST Completed. [...] - 07/30/2022 1:49 PM EST Patient to [facility] ER this am for Epigastric pain lasting [...] for NHL. Vitals were BP of 181/86, IA of 77 and RR of 15; she [...] Dr. Kena Gonzalez M.D. documented in this encounterMercer County Community Hospital11-04-2022 Miscellaneous Notes* Telephone Encounter - DOREEN Roman [...] protocol. Chinyere Shea RN documented in this encounterMercer County Community Hospital11-01-2022 History of Present illness Narrative* Melba Escudero MD - 07/23/2022 10:23 AM EDT PATIENT NAME: Lisa Up. CLINIC NO: [id number]. ATTENDING PHYSICIAN: Melba Escudero MD. DATE OF [...] that 15% of total events have the RS91ipo side scatter properties of lymphocytes. Interpretation: The [...] Lymph 1.00 - 4.00 k/uL 0.37 (L) Centre% % 7.0 Abs Centre <0.87 k/uL 0.23 Eosin% % 9.1 Abs [...] with more than 50% of the total ulje-mn-ilfx time of the visit in counseling / coordination of care. Portions of this documentation were copied and pasted from previous office visit notes in order to provide a cohesive continuity of the history. The note has been reviewed and edited and updated as necessary. Melba Escudero MD Cc: Dr. Sylvia Lizama documented in this encounterMer[facility]11-01-[facility]22 Instructions* Patient Instructions* Melba Escudero MD - 07/23/2022 10:17 AM EDT Check temperature when you have chills Call for Temp > 101 or 100.4 x 2 (1 hour apart) documented in this encounterMercer County [facility] Hospital10-24-2022 History of Present illness Narrative* LUZ MARIA [...] Parent(s): Mother and father are Child/Children: Yes. healthcare analyst arrangements needed: No Siblings: Yes Grandchild(boo): > 5 Home Health Provider: No Community Services: No Viviane Identified: Yes Jewish/Spirituality: Oriental Orthodox Are these practices or beliefs that may affect or influence treatment? 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 No Financial Distress: No [place]: No FOOD INSECURITY Within the past year, [...] information for patient to review Scanned into Quick Hit: No Health Care Durable Power of Material Mixer: No and provided POA information for patient [...] SW in: IESHA Khan documented in this encounterMercer County [facility] Hospital10-17-2022 Miscellaneous Notes* Telephone Encounter - Chinyere Shea [...] protocol. Chinyere Shea RN documented in this encounterMercer County Community Hospital10-11-2022 Miscellaneous Notes* Telephone Encounter - Chinyere Shea [...] uses Tylenol but doesn't help much. Has Ragley but only uses on occasion. Denies any [...] provided. Chinyere Shea RN documented in this encounterMercer County [facility] Hospital10-06-2022 Miscellaneous Notes* Telephone Encounter - Melba Escudero MD - 06/27/2022 1:11 PM EDT Patient's request for medication is as follows Requested Prescriptions Signed Prescriptions Disp Refills ZOLMitriptan (ZOMIG) 5 mg tablet 3 tablet 0 Sig: Take 1 tablet by mouth as needed. Authorizing Provider: MELBA ESCUDERO Order entered - please phone pharmacy and notify patient. Melba Escudero MD documented in this encounterMercer County Community Hospital10-06-2022 Miscellaneous Notes* Telephone Encounter - Melba Escudero MD - 06/27/2022 12:23 PM EDT Is this a throbbing headache like migraine or cluster headaches? Can she try Zomig 5 mg daily as needed instead and stop hydralazine? Continue Ragley as needed for pain or headaches. Continue [...] med altogether. Please advise. documented in this encounterMercer County Community Hospital09-28-2022 History of Present illness Narrative* César Quintero [...] Abs Lymph 1.00 - 4.00 k/uL 1.82 Centre% % 8.1 Abs Centre <0.87 k/uL 0.43 Eosin% % 5.2 Abs [...] that 15% of total events have the QS00hth side scatter properties of lymphocytes. Interpretation: The [...] Cc: Dr. Sylvia Crowder documented in this encounterMercer County Community Hospital09-20-2022 History of Present illness Narrative* Reta Hollis LPN - 06/11/2022 10:43 AM EDT Patient here for prevnar 20 and flu high dose vaccine. Tolerated injection well. 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 The patient needed termite treater helper IV access for treatment. Dr. Crowder performed [...] Tima Peterson PA-C documented in this encounterCleveland Uepsml89-07-2521 Instructions* Patient Instructions* Tima Peterson PA-C - [...] if any worsening symptoms documented in this [facility]09[facility]19[facility]22 Miscellaneous Notes* Telephone Encounter - Viv Lo RN - 06/10/2022 12:56 PM EDT Lisa is scheduled for today with SANDEEP Headley at 1530. Viv Lo RN * Telephone Encounter - Viv Lo RN - 06/10/2022 12:32 PM EDT Attempted to call Lisa ([phone]) no answer and her voicemail box is [...] what she should do. documented in this [facility]09-14-2022 NoteHNO ID: [id number] Author: Elida Dodd RN Service: Nursing Author Type: Registered Nurse Type: Nursing Progress Note Filed: 06/05/2022 12:01 PM Note Text: Other: pt ready for OR, call light in reach, daughter called to [facility]09-09-2022 Miscellaneous Notes* Telephone Encounter - Sylvia Lizama MD - 05/31/2022 3:01 PM EDT Ok to do * Telephone Encounter - Hui Carrion APRN.CNP - 05/31/2022 12:36 PM EDT Pt is scheduled for port-a-cath placement with Dr. Crowder at [place] 06/05/2022. Pt currently is taking Eliquis for hx DVT. Per PACC guidelines we would like the pt to hold for 72 hours prior to surgery. Is this okay with you? Pt. Was placed on medication by PCP, note routed to that physician. documented in this encounterMercer County Community Hospital09-09-2022 Miscellaneous Notes* Telephone Encounter - Missy Peralta LPN - 05/31/2022 10:50 AM EDT Patient requesting 90 day refill through [facility]. Missy Peralta LPN documented in this encounterMercer County Community Hospital09-09-2022 Instructions* Patient Instructions* Hui Carrion APRN.LEONCIO - 05/31/2022 8:57 AM EDT PATIENT PREOPERATIVE INSTRUCTIONS Zeny Crowder MD has scheduled you for your procedure at this surgery center: [facility]: [phone] -- [address] [address]. Please read below carefully for your personalized [...] Procedures: - YOU MUST HAVE A RESPONSIBLE PLATFORM MAN TAKE YOU HOME. A ACID BATH MIXER OR LOCK CORNER MACHINE OPERATOR CANNOT BE MADE A RESPONSIBLE PLATFORM MAN. - We recommend that a responsible person [...] Advance Directive, please fax a copy to [phone] or email to for it to be [...] day. Hui Carrion APRN.LEONCIO documented in this encounterMercer County Community Hospital09-09-2022 History and physical note * Hui Carrion [...] fevers. Neurological: No history of TIA's, stroke, GRADUATE RESEARCH ASSISTANT tumor, impaired sensorium, hemiplegia, paraplegia orquadraplegia. No [...] very difficult airway. She was admitted to [facility] for ongoing care. On arrival [...] pain, CHF, congenital heart defect, hyperlipidemia, recent UT, murmur/valvular heart disease, open heart surgery and valve surgery. GI: Positive for: GERD (on rx) Negative for: abdominal pain, dysphagia, hepatitis, irritable bowel syndrome, inflammatory bowel disease, liver disease, nausea, pancreatitis, vomiting and ETOH >2 drinks/day. : Positive for: renal failure (s/p partial nephrectomy, benign patho). Patient's renal failure is chronic. Negative for: urinary incontinence, nephrolithiasis and urinary tract infection. 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 [id number] [address] [facility] Mail [facility] 04/08/18 Patient stopped taking Coreg or Clonidine - took amlodipine 5mg BID 04/07 and 04/08 from old rx. Lala Weston RN ALLERGIES Allergen Reactions Covid-19 Vaccine, M* Anaphylaxis Erythromycin Rash, GI Upset Urticarial rash, seen in [place] [facility] Latex Swelling Lisinopril Swelling Nafcillin Itching [...] 8760 hour(s)). Recent Results (from the past 58763 hour(s)) ECHO Collection Time: 05/19/21 7:32 AM [...] Eliquis, s/p Devora filter, TE to Dr. Escduero for pre-op AC instructions History of lumbar [...] during sleep Non-male patient STOP-Bang Score: 5 [id number] Score: Age: >=75 Sex: female CHF history: No Hypertension history: Yes Stroke/TIA/thromboembolism history: Yes Vascular disease history: No Diabetes history: No [id number] Score: 6 ARISCAT Score: Age: 51-80 ARISCAT [...] and consent discussed: yes. Patient / Responsible Democrat agrees to proceed: yes Patient / Surrogate [...] 8:53 AM PAGER/CONTACT #: documented in this encounterMercer County Community Hospital09-06-2022 History of Present illness Narrative* Zeny Crowder [...] for this visit. ALLERGIES: Covid-19 Vaccine, Mrna, [id number], Lnp-S (Moderna); Erythromycin; Latex; Lisinopril; Nafcillin; Norvasc [Amlodipine Besylate]; and Wasps PERSONAL HISTORY: Social History Tobacco Use Smoking status: Never Smokeless tobacco: Never Vaping Use Vaping Use: Never used Substance Use Topics Alcohol use: No Drug use: No FAMILY HISTORY: FAMILY HISTORY Problem Relation Age of Onset Heart Mother Cancer Mother lung Heart Father other (Other) Father Heart Brother [place], aneurysm Migraines Daughter Macular Degen Maternal Aunt REVIEW OF SYMPTOMS: The review of systems data was entered by the nurse and reviewed by me Nursing Notes: Viv oL RN 05/28/2022 3:01 PM Signed REVIEW OF [...] Planned Procedure: right Internal Jugular Portacath - [id number] Patient Weight Last 1 Encounter Wt Readings: Date: Wt: 05/28/2022 101.1 kg (222 lb 12.8 oz) Antibiotic: Ancef 2gm IVPB work station support specialist to OR Planned Anesthetic: MAC with local [...] Zeny Crowder III, MD documented in this encounterMercer County Community Hospital09-06-2022 Nurse Note* Viv Lo RN - 05/28/2022 [...] 12/04/2016 Viv Lo RN documented in this encounterMercer County Community Hospital09-06-2022 History of Present illness Narrative* Chinyere Shea RN - 05/28/2022 2:34 PM EDT Patient teaching was completed over the phone. Chinyere Shea RN * Chinyere Shea RN - 05/28/2022 2:33 PM EDT Immigration Officer Pre Chemo Patient identified by name and date of . YES Confirmed date and time for chemotherapy ? YES Other appointments (labs, imaging) discussed? 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 Chinyere Shea RN documented in this encounterMercer County Community Hospital09-06-2022 Miscellaneous Notes* Telephone Encounter - Luz Morfin Ma - 05/28/2022 2:06 PM EDT Last office visit: 04/22/22 F/u scheduled: none Luz Morfin Ma documented in this encounterMercer County Community Hospital09-06-2022 Miscellaneous Notes* Telephone Encounter - Ashley Beauchamp [...] patient. Ashley Beauchamp LPN documented in this encounterMercer County Community Hospital09-01-2022 Miscellaneous Notes* Telephone Encounter - Talia Silver [...] advise, Lou Purvis RN documented in this encounterMercer County Community Hospital08-31-2022 Miscellaneous Notes* Telephone Encounter - Chinyere Shea RN - 05/22/2022 3:49 PM EDT Met with patient and introduced myself. Patient was given a My Journey binder with chemocare information, office contact information, thermometer, and additional chemotherapy resource booklets. Patient aware this nurse will review on scheduled appointment date. Information given for Rituxan and Bendamustine. Sravanthi Shea RN documented in this encounterMercer County Community Hospital08-31-2022 Miscellaneous Notes* Telephone Encounter - Lou Rincon [...] lymphoma. Melba Escudero MD documented in this encounterMercer County Community Hospital08-30-2022 History of Present illness Narrative* Zeny Crowder [...] patient tolerated the procedure well. * Viv Lo RN - 05/10/2022 9:38 AM EDT UNIVERSAL PROTOCOL / SAFETY CHECKLIST Procedure to be Performed: Ultrasound guided needle core biopsy left axillary lymph node. Sign In: A Moment of CARE was completed. Personnel directly involved with the procedure wore the appropriate PPE (Personal Protective Equipment). Special equipment: Bard Max-Core disposable core biopsy instrument [id number] and UltraClip dual trigger breast tissue marker [id number]. Patient/Surrogate Stated/Verified: PATIENT VERIFIED(optional for EMERGENT procedures): [...] applicable. Viv Lo RN documented in this encounterMercer County Community Hospital08-24-2022 Miscellaneous Notes* Telephone Encounter - Elmira Monroy [...] nitrofurantoin and start Keflex. documented in this encounterMercer County Community Hospital08-22-2022 Miscellaneous Notes* Telephone Encounter - Ashlye Beauchamp LPN - 05/13/2022 3:02 PM EDT Pt. Notified, voiced understanding Ashely Beauchamp LPN * Telephone Encounter - Melba [...] Thank you, Anel Orellana documented in this encounterMercer County Community Hospital08-22-2022 Instructions* Patient Instructions* Helen Bonilla APRN.LEONCIO - [...] Discussed expected course of illness Helen Bonilla APRN.[facility] PATIENT INFO BLADDER INFECTION OVERVIEW Bladder [...] actually have an infection. documented in this encounterMercer County Community Hospital08-22-2022 History of Present illness Narrative* Helen Bonilla [...] 1987 Hysterectomy, NEISHA ALLERGIES Covid-19 Vaccine, Mrna, [id number], Lnp-S (Moderna); Erythromycin; Latex; Lisinopril; Nafcillin; Norvasc [...] Heart Father other (Other) Father Heart Brother [place], aneurysm Migraines Daughter Macular Degen Maternal Aunt [...] Discussed expected course of illness Helen Bonilla APRN.TIER IN documented in this encounterMercer County Community Hospital08-19-2022 Instructions* Patient Instructions* Viv Lo RN - 05/10/2022 9:52 AM EDT The following instructions are important for you related to your office visit today with the [facility] Sur[facility]. Instructions After OFFICE BASED AXILLARY [...] you should contact our office immediately @ [phone] and ask to be transferred to the General Surgery department. documented in this encounterMercer County Community Hospital08-16-2022 History of Present illness Narrative* Zeny Crowder [...] for this visit. ALLERGIES: Covid-19 Vaccine, Mrna, [id number], Lnp-S (Moderna); Erythromycin; Latex; Lisinopril; Nafcillin; Norvasc [Amlodipine Besylate]; and Wasps PERSONAL HISTORY: Social History Tobacco Use Smoking status: Never Smokeless tobacco: Never Vaping Use Vaping Use: Never used Substance Use Topics Alcohol use: No Drug use: No FAMILY HISTORY: FAMILY HISTORY Problem Relation Age of Onset Heart Mother Cancer Mother lung Heart Father other (Other) Father Heart Brother [place], aneurysm Migraines Daughter Macular Degen Maternal Aunt REVIEW OF SYMPTOMS: The review of systems data was entered by the nurse and reviewed by wa Nursing Notes: Barbara Puga LPN 05/07/2022 9:05 [...] Zeny Crowder III, MD documented in this encounterMercer County Community Hospital08-16-2022 Nurse Note* Barbara PugaLAYNE - 05/07/2022 9:02 [...] 2016 Barbara Puga LPN documented in this encounterMercer County Community Hospital08-12-2022 History of Past illness Narrative* Problem Noted [...] Overview: Added automatically from request for surgery [id number] Lumbar spondylosis 07/18/2017 11/27/2022 Overview: Added automatically from request for surgery [id number] Chronic bilateral low back pain with bilateral s ciatica 04/28/2017 11/27/2022 Overview: Added automatically from request for surgery [id number] Obesity due to excess calori es, unspecified [...] of this encounter (statuses as of 11/27/2022) [facility] of Past illness Narrative* Problem Noted [...] Overview: Added automatically from request for surgery [id number] Lumbar spondylosis 07/18/2017 11/27/2022 Overview: Added automatically from request for surgery [id number] Chronic bilateral low back pain with bilateral s ciatica 04/28/2017 11/27/2022 Overview: Added automatically from request for surgery [id number] Obesity due to excess calori es, unspecified [...] of this encounter (statuses as of 12/10/2022) [facility] of Past illness Narrative* Problem Noted [...] Overview: Added automatically from request for surgery [id number] Lumbar spondylosis 07/18/2017 11/27/2022 Overview: Added automatically from request for surgery [id number] Chronic bilateral low back pain with bilateral s ciatica 04/28/2017 11/27/2022 Overview: Added automatically from request for surgery [id number] Obesity due to excess calori es, unspecified [...] of this encounter (statuses as of 12/17/2022) [facility] of Past illness Narrative* Problem Noted [...] Overview: Added automatically from request for surgery [id number] Lumbar spondylosis 07/18/2017 11/27/2022 Overview: Added automatically from request for surgery [id number] Chronic bilateral low back pain with bilateral s ciatica 04/28/2017 11/27/2022 Overview: Added automatically from request for surgery [id number] Obesity due to excess calori es, unspecified [...] of this encounter (statuses as of 12/18/2022) [facility] of Past illness Narrative* Problem Noted [...] Overview: Added automatically from request for surgery [id number] Lumbar spondylosis 07/18/2017 11/27/2022 Overview: Added automatically from request for surgery [id number] Chronic bilateral low back pain with bilateral s ciatica 04/28/2017 11/27/2022 Overview: Added automatically from request for surgery [id number] Obesity due to excess calori es, unspecified [...] of this encounter (statuses as of 12/25/2022) [facility] of Past illness Narrative* Problem Noted [...] Overview: Added automatically from request for surgery [id number] Lumbar spondylosis 07/18/2017 11/27/2022 Overview: Added automatically from request for surgery [id number] Chronic bilateral low back pain with bilateral s ciatica 04/28/2017 11/27/2022 Overview: Added automatically from request for surgery [id number] Obesity due to excess calori es, unspecified [...] of this encounter (statuses as of 12/25/2022) [facility] of Past illness Narrative* Problem Noted [...] Overview: Added automatically from request for surgery [id number] Lumbar spondylosis 07/18/2017 11/27/2022 Overview: Added automatically from request for surgery [id number] Chronic bilateral low back pain with bilateral s ciatica 04/28/2017 11/27/2022 Overview: Added automatically from request for surgery [id number] Obesity due to excess calori es, unspecified [...] of this encounter (statuses as of 12/25/2022) [facility] of Past illness Narrative* Problem Noted [...] Overview: Added automatically from request for surgery [id number] Lumbar spondylosis 07/18/2017 11/27/2022 Overview: Added automatically from request for surgery [id number] Chronic bilateral low back pain with bilateral s ciatica 04/28/2017 11/27/2022 Overview: Added automatically from request for surgery [id number] Obesity due to excess calori es, unspecified [...] of this encounter (statuses as of 12/31/2022) [facility] of Past illness Narrative* Problem Noted [...] Overview: Added automatically from request for surgery [id number] Lumbar spondylosis 07/18/2017 11/27/2022 Overview: Added automatically from request for surgery [id number] Chronic bilateral low back pain with bilateral s ciatica 04/28/2017 11/27/2022 Overview: Added automatically from request for surgery [id number] Obesity due to excess calori es, unspecified [...] of this encounter (statuses as of 01/02/2023) [facility] of Past illness Narrative* Problem Noted [...] Overview: Added automatically from request for surgery [id number] Lumbar spondylosis 07/18/2017 11/27/2022 Overview: Added automatically from request for surgery [id number] Chronic bilateral low back pain with bilateral s ciatica 04/28/2017 11/27/2022 Overview: Added automatically from request for surgery [id number] Obesity due to excess calori es, unspecified [...] of this encounter (statuses as of 02/21/2023) [facility] of Past illness Narrative* Problem Noted [...] Overview: Added automatically from request for surgery [id number] Lumbar spondylosis 07/18/2017 11/27/2022 Overview: Added automatically from request for surgery [id number] Chronic bilateral low back pain with bilateral s ciatica 04/28/2017 11/27/2022 Overview: Added automatically from request for surgery [id number] Obesity due to excess calori es, unspecified [...] of this encounter (statuses as of 02/21/2023) [facility] of Past illness Narrative* Problem Noted [...] Overview: Added automatically from request for surgery [id number] Lumbar spondylosis 07/18/2017 11/27/2022 Overview: Added automatically from request for surgery [id number] Chronic bilateral low back pain with bilateral s ciatica 04/28/2017 11/27/2022 Overview: Added automatically from request for surgery [id number] Obesity due to excess calori es, unspecified [...] of this encounter (statuses as of 02/25/2023) [facility] of Past illness Narrative* Problem Noted [...] Overview: Added automatically from request for surgery [id number] Lumbar spondylosis 07/18/2017 11/27/2022 Overview: Added automatically from request for surgery [id number] Chronic bilateral low back pain with bilateral s ciatica 04/28/2017 11/27/2022 Overview: Added automatically from request for surgery [id number] Obesity due to excess calori es, unspecified [...] of this encounter (statuses as of 03/10/2023) [facility] Narrative* Problem Noted [...] Overview: Added automatically from request for surgery [id number] Lumbar spondylosis 07/18/2017 11/27/2022 Overview: Added automatically from request for surgery [id number] Chronic bilateral low back pain with bilateral s ciatica 04/28/2017 11/27/2022 Overview: Added automatically from request for surgery [id number] Obesity due to excess calori es, unspecified [...] of this encounter (statuses as of 03/24/2023) [facility] illness Narrative* Problem Noted [...] Overview: Added automatically from request for surgery [id number] Lumbar spondylosis 07/18/2017 11/27/2022 Overview: Added automatically from request for surgery [id number] Chronic bilateral low back pain with bilateral s ciatica 04/28/2017 11/27/2022 Overview: Added automatically from request for surgery [id number] Obesity due to excess calori es, unspecified [...] of this encounter (statuses as of 03/27/2023) [facility] Narrative* Problem Noted [...] Overview: Added automatically from request for surgery [id number] Lumbar spondylosis 07/18/2017 Overview: Added automatically from request for surgery [id number] Chronic bilateral low back p ain with bilateral sciatica 04/28/2017 11/27/2022 Overview: Added automatically from request for surgery [id number] Obesity due to excess calori es, unspecified [...] of this encounter (statuses as of 04/03/2023) [facility] Narrative* Problem Noted [...] Overview: Added automatically from request for surgery [id number] Lumbar spondylosis 07/18/2017 Overview: Added automatically from request for surgery [id number] Chronic bilateral low back p ain with bilateral sciatica 04/28/2017 11/27/2022 Overview: Added automatically from request for surgery [id number] Obesity due to excess calori es, unspecified [...] of this encounter (statuses as of 04/18/2023) [facility] illness Narrative* Problem Noted [...] Overview: Added automatically from request for surgery [id number] Lumbar spondylosis 07/18/2017 Overview: Added automatically from request for surgery [id number] Chronic bilateral low back p ain with bilateral sciatica 04/28/2017 11/27/2022 Overview: Added automatically from request for surgery [id number] Obesity due to excess calori es, unspecified [...] of this encounter (statuses as of 04/18/2023) [facility] illness Narrative* Problem Noted [...] Overview: Added automatically from request for surgery [id number] Lumbar spondylosis 07/18/2017 Overview: Added automatically from request for surgery [id number] Chronic bilateral low back p ain with bilateral sciatica 04/28/2017 11/27/2022 Overview: Added automatically from request for surgery [id number] Obesity due to excess calori es, unspecified [...] of this encounter (statuses as of 04/25/2023) [facility] History of Past illness Narrative* Problem Noted [...] Overview: Added automatically from request for surgery [id number] Lumbar spondylosis 07/18/2017 Overview: Added automatically from request for surgery [id number] Chronic bilateral low back p ain with bilateral sciatica 04/28/2017 11/27/2022 Overview: Added automatically from request for surgery [id number] Obesity due to excess calori es, unspecified [...] of this encounter (statuses as of 04/30/2023) [facility] History of Past illness Narrative* Problem Noted [...] Overview: Added automatically from request for surgery [id number] Lumbar spondylosis 07/18/2017 Overview: Added automatically from request for surgery [id number] Chronic bilateral low back p ain with bilateral sciatica 04/28/2017 11/27/2022 Overview: Added automatically from request for surgery [id number] Obesity due to excess calori es, unspecified [...] of this encounter (statuses as of 05/07/2023) [facility] History of Past illness Narrative* Problem Noted [...] Overview: Added automatically from request for surgery [id number] Lumbar spondylosis 07/18/2017 Overview: Added automatically from request for surgery [id number] Chronic bilateral low back p ain with bilateral sciatica 04/28/2017 11/27/2022 Overview: Added automatically from request for surgery [id number] Obesity due to excess calori es, unspecified [...] of this encounter (statuses as of 05/09/2023) [facility] History of Past illness Narrative* Problem Noted [...] Overview: Added automatically from request for surgery [id number] Lumbar spondylosis 07/18/2017 Overview: Added automatically from request for surgery [id number] Chronic bilateral low back p ain with bilateral sciatica 04/28/2017 11/27/2022 Overview: Added automatically from request for surgery [id number] Obesity due to excess calori es, unspecified [...] of this encounter (statuses as of 05/13/2023) [facility] History of Past illness Narrative* Problem Noted [...] Overview: Added automatically from request for surgery [id number] Lumbar spondylosis 07/18/2017 Overview: Added automatically from request for surgery [id number] Chronic bilateral low back p ain with bilateral sciatica 04/28/2017 11/27/2022 Overview: Added automatically from request for surgery [id number] Obesity due to excess calori es, unspecified [...] of this encounter (statuses as of 06/05/2023) [facility] History of Past illness Narrative* Problem Noted [...] Overview: Added automatically from request for surgery [id number] Lumbar spondylosis 07/18/2017 Overview: Added automatically from request for surgery [id number] Chronic bilateral low back p ain with bilateral sciatica 04/28/2017 11/27/2022 Overview: Added automatically from request for surgery [id number] Obesity due to excess calori es, unspecified [...] of this encounter (statuses as of 06/06/2023) [facility] History of Past illness Narrative* Problem Noted [...] Overview: Added automatically from request for surgery [id number] Lumbar spondylosis 07/18/2017 Overview: Added automatically from request for surgery [id number] Chronic bilateral low back p ain with bilateral sciatica 04/28/2017 11/27/2022 Overview: Added automatically from request for surgery [id number] Obesity due to excess calori es, unspecified [...] of this encounter (statuses as of 06/06/2023) [facility] History of Past illness Narrative* Problem Noted [...] Overview: Added automatically from request for surgery [id number] Lumbar spondylosis 07/18/2017 Overview: Added automatically from request for surgery [id number] Chronic bilateral low back p ain with bilateral sciatica 04/28/2017 11/27/2022 Overview: Added automatically from request for surgery [id number] Obesity due to excess calori es, unspecified [...] of this encounter (statuses as of 06/13/2023) [facility] History of Past illness Narrative* Problem Noted [...] Overview: Added automatically from request for surgery [id number] Lumbar spondylosis 07/18/2017 Overview: Added automatically from request for surgery [id number] Chronic bilateral low back p ain with bilateral sciatica 04/28/2017 11/27/2022 Overview: Added automatically from request for surgery [id number] Obesity due to excess calori es, unspecified [...] of this encounter (statuses as of 06/14/2023) [facility] History of Past illness Narrative* Problem Noted [...] Overview: Added automatically from request for surgery [id number] Lumbar spondylosis 07/18/2017 Overview: Added automatically from request for surgery [id number] Chronic bilateral low back p ain with bilateral sciatica 04/28/2017 11/27/2022 Overview: Added automatically from request for surgery [id number] Obesity due to excess calori es, unspecified [...] of this encounter (statuses as of 04/19/2023) [facility] Miscellaneous Notes* Telephone Encounter - Heaven Sykes - 05/03/2022 12:05 PM EDTSummary: BMBX BMBX IN [facility] W/DR ESCUDERO ON 05/15/22 @ 12PM/ HEP/CBC/PBSX2/SPECIMEN TO [facility] History of Present illness Narrative* Suad Joe, [...] 22, 2022 4:26 PM [facility] History of Present illness Narrative* Sylvia Lizama [...] Rash, GI Upset Urticarial rash, seen in [place] [facility] Latex Swelling Lisinopril Swelling Nafcillin Itching [...] Heart Father other (Other) Father Heart Brother [place], aneurysm Migraines Daughter Macular Degen Maternal Aunt [...] one month and prn. [facility] Miscellaneous Notes* Telephone Encounter - Sylvia Lizama [...] etc. Gorge Melendrez LPN documented in [facility] Miscellaneous Notes* Telephone Encounter - Danielle Gregory [...] none Luz Morfin Ma documented in [facility] Miscellaneous Notes* Telephone Encounter - Kimberly Obregon [...] you. Kimberly Obregon LPN documented [facility] Miscellaneous Notes* Telephone Encounter - Sabrina Cavanaugh Ma - 02/04/2022 3:51 PM EDT See refill request documented in this encounterMer[facility] Miscellaneous Notes* Telephone Encounter - Christina Javed [...] advise. Christina Javed LPN documented in this encounterMer[facility] History of Present illness Narrative* Melba Escudero MD - 01/29/2022 4:20 PM EDT PATIENT NAME: Lisa Up. CLINIC NO: [id number]. ATTENDING PHYSICIAN: Melba Escudero MD. DATE OF [...] Abs Lymph 1.00 - 4.00 k/uL 1.86 Centre% % 10.1 Abs Centre <0.87 k/uL 0.50 Eosin% % 3.4 Abs [...] Cc: Dr. Sylvia Lizama documented in [facility] History of Past illness Narrative* Problem Noted [...] of this encounter (statuses as of 01/10/2022) [facility] Narrative* Problem Noted [...] of this encounter (statuses as of 01/30/2022) [facility] Narrative* Problem Noted [...] of this encounter (statuses as of 02/04/2022) [facility] Narrative* Problem Noted [...] of this encounter (statuses as of 02/04/2022) [facility] Narrative* Problem Noted [...] of this encounter (statuses as of 03/05/2022) [facility] Narrative* Problem Noted [...] of this encounter (statuses as of 04/01/2022) [facility] Narrative* Problem Noted [...] of this encounter (statuses as of 04/19/2022) [facility] illness Narrative* Problem Noted [...] of this encounter (statuses as of 04/22/2022) [facility] Narrative* Problem Noted [...] of this encounter (statuses as of 05/07/2022) [facility] Narrative* Problem Noted [...] of this encounter (statuses as of 05/13/2022) [facility] Narrative* Problem Noted [...] of this encounter (statuses as of 05/13/2022) [facility] Narrative* Problem Noted [...] of this encounter (statuses as of 05/14/2022) [facility] Narrative* Problem Noted [...] of this encounter (statuses as of 05/15/2022) [facility] Narrative* Problem Noted [...] of this encounter (statuses as of 05/21/2022) [facility] Narrative* Problem Noted [...] of this encounter (statuses as of 05/22/2022) [facility] Narrative* Problem Noted [...] of this encounter (statuses as of 05/22/2022) [facility] Narrative* Problem Noted [...] of this encounter (statuses as of 05/23/2022) [facility] Narrative* Problem Noted [...] of this encounter (statuses as of 05/28/2022) [facility] Narrative* Problem Noted [...] of this encounter (statuses as of 05/28/2022) [facility] Narrative* Problem Noted [...] of this encounter (statuses as of 05/28/2022) [facility] Narrative* Problem Noted [...] of this encounter (statuses as of 05/31/2022) [facility] Narrative* Problem Noted [...] of this encounter (statuses as of 05/31/2022) [facility] Narrative* Problem Noted [...] of this encounter (statuses as of 05/31/2022) [facility] Narrative* Problem Noted Date Resolved Date Hypokalemia 05/30/2021 05/31/2021 Hyponatremia 05/30/2021 05/31/2021 Delirium 05/28/2021 05/31/2021 Angioedema 05/19/2021 05/31/2021 Grayson angina 05/18/2021 05/19/2021 Acute respiratory failure with hypoxia 05/31/2021 Blepharitis of both eyes 12/27/2015 016 Meibomianitis 12/14/2015 01/03/2016 Meibomitis 09/06/2015 11/02/2015 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 05/13/2014 08/16/2015 Glaucomatous atrophy (cupping) of optic disc - B [facility] Eyes 05/13/2014 08/16/2015 Other and combined forms [...] of this encounter (statuses as of 06/10/2022) [facility] Narrative* Problem Noted [...] of this encounter (statuses as of 06/10/2022) [facility]arrative* Problem Noted [...] of this encounter (statuses as of 06/11/2022) [facility]arrative* Problem Noted [...] of this encounter (statuses as of 06/19/2022) [facility]ative* Problem Noted [...] of this encounter (statuses as of 06/27/2022) [facility]* Problem Noted [...] of this encounter (statuses as of 06/28/2022) [facility] Narrative* Problem Noted [...] of this encounter (statuses as of 06/28/2022) [facility]* Problem Noted [...] of this encounter (statuses as of 07/02/2022) [facility]ative* Problem Noted [...] of this encounter (statuses as of 07/02/2022) [facility]arrative* Problem Noted [...] of this encounter (statuses as of 07/08/2022) [facility]* Problem Noted [...] of this encounter (statuses as of 07/15/2022) [facility]ative* Problem Noted [...] of this encounter (statuses as of 07/23/2022) [facility]* Problem Noted [...] of this encounter (statuses as of 07/23/2022) [facility]ative* Problem Noted [...] of this encounter (statuses as of 07/24/2022) [facility]* Problem Noted [...] of this encounter (statuses as of 07/26/2022) [facility]* Problem Noted [...] of this encounter (statuses as of 07/31/2022) [facility]ative* Problem Noted [...] of this encounter (statuses as of 08/01/2022) [facility] Narrative* Problem Noted Date Resolved Date Hypokalemia 05/30/2021 05/31/2021 Hyponatremia 05/30/2021 05/31/2021 Delirium 05/28/2021 05/31/2021 Angioedema 05/19/2021 05/31/2021 Grayson angina 05/18/2021 05/19/2021 Acute respiratory failure with hypoxia 05/31/2021 Blepharitis of both eyes 12/27/2015 016 Meibomianitis 12/14/2015 01/03/2016 Meibomitis 09/06/2015 11/02/2015 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 05/13/2014 08/16/2015 Glaucomatous atrophy (cupping) of optic disc - B [facility] Eyes 05/13/2014 08/16/2015 Other and combined forms [...] of this encounter (statuses as of 08/05/2022) [facility] Narrative* Problem Noted [...] of this encounter (statuses as of 08/06/2022) [facility]arrative* Problem Noted [...] of this encounter (statuses as of 08/12/2022) [facility]arrative* Problem Noted [...] of this encounter (statuses as of 08/19/2022) [facility] Narrative* Problem Noted [...] of this encounter (statuses as of 09/01/2022) [facility] Narrative* Problem Noted Date Resolved Date Hypokalemia 05/30/2021 05/31/2021 Hyponatremia 05/30/2021 05/31/2021 Delirium 05/28/2021 05/31/2021 Angioedema 05/19/2021 05/31/2021 Graysno angina 05/18/2021 05/19/2021 Acute respiratory failure with [...] of this encounter (statuses as of 09/02/2022) [facility] Narrative* Problem Noted [...] of this encounter (statuses as of 09/03/2022) [facility]arrative* Problem Noted [...] of this encounter (statuses as of 09/26/2022) [facility]arrative* Problem Noted [...] of this encounter (statuses as of 09/26/2022) [facility]arrative* Problem Noted [...] of this encounter (statuses as of 10/01/2022) [facility]* Problem Noted [...] of this encounter (statuses as of 10/01/2022) [facility] Narrative* Problem Noted Date Resolved Date Hypokalemia 05/30/2021 05/31/2021 Hyponatremia 05/30/2021 05/31/2021 Delirium 05/28/2021 05/31/2021 Angioedema 05/19/2021 05/31/2021 Grayson angina 05/18/2021 05/19/2021 Acute respiratory failure with hypoxia 05/31/2021 Blepharitis of both eyes 12/27/2015 016 Meibomianitis 12/14/2015 01/03/2016 Meibomitis 09/06/2015 11/02/2015 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 05/13/2014 08/16/2015 Glaucomatous atrophy (cupping) of optic disc - B [facility] Eyes 05/13/2014 08/16/2015 Other and combined forms [...] of this encounter (statuses as of 10/02/2022) [facility] Narrative* Problem Noted [...] of this encounter (statuses as of 10/03/2022) [facility]ative* Problem Noted [...] of this encounter (statuses as of 10/03/2022) [facility]* Problem Noted [...] of this encounter (statuses as of 10/04/2022) [facility]ative* Problem Noted [...] of this encounter (statuses as of 10/15/2022) [facility] Narrative* Problem Noted [...] and combined forms of senile cataract - Bneito th Eyes 05/13/2014 08/16/2015 Tear film insufficiency, [...] of this encounter (statuses as of 10/28/2022) [facility] Narrative* Problem Noted [...] of this encounter (statuses as of 10/30/2022) [facility]* Problem Noted [...] of this encounter (statuses as of 11/04/2022) [facility]* Problem Noted [...] of this encounter (statuses as of 11/08/2022) [facility]* Problem Noted [...] of this encounter (statuses as of 11/13/2022) [facility]* Problem Noted [...] of this encounter (statuses as of 11/18/2022) [facility]* Problem Noted [...] of this encounter (statuses as of 11/18/2022) [facility]* Problem Noted [...] of this encounter (statuses as of 11/21/2022) [facility]* Problem Noted [...] of this encounter (statuses as of 11/25/2022) [facility]* Problem Noted [...] of this encounter (statuses as of 11/26/2022) [facility] Present [facility] Narrative* Suad Joe [...] 21, 2021 12:56 PM documented in this encounterMer[facility]05[facility] Miscellaneous Notes* Telephone Encounter - Talia Silver [...] to see if she can access a [employer] VV as she was not able to do it the last time she tried. Will increase fluid intake, and check BP and call back with update for pcp in 1-2 hours. Reports [facility] is coming to her house tomorrow, [...] fluids. [facility] 6. AGGRAVATING FACTORS: Standing made it worse. 7. HEART RATE No unable, can't feel it- hands are numb due to previous back surgery. 8. CAUSE: Sitting at computer a long time. 9. RECURRENT SYMPTOM: Has hx of vertigo, but this is different. 10. OTHER SYMPTOMS No other symptoms. Last void 10 min ago. 11. No. Protocols used: DIZZINESS - [id number] documented in this encounterMer[facility]04[facility] History of Present illness Narrative* Minerva Call [...] 12, 2021 2:47 PM documented in this encounterMer[facility]03[facility] History of Present illness Narrative* Carlton Dejesus [...] 06, 2020 2:44 PM documented in this encounterMer[facility]12[facility]2020 History of Present illness Narrative* Suad Joe [...] 30, 2020 6:46 PM [facility]Ohio[facility] noteThere may be information available, but it has not been provided by the sender.[facility] Work Phone: Evaluation note* Diagnosis 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 Encounter for screening mammogram for malignant neoplasm of breast Other screening mammogram [facility] Diagnosis Hypopotassemia documented in this encounter [facility] note* Diagnosis Epigastric pain Abdominal pain, epigastric GERD without esophagitis Esophageal reflux [facility] Diagnosis Hypopotassemia Epigastric pain Abdominal pain, epigastric GERD without esophagitis Esophageal reflux [facility]* Diagnosis SOB (shortness of breath)- Primary Shortness of breath Fatigue, unspecified type Bronchitis Bronchitis, not specified as acute or chronic Edema, unspecified type Hypothyroidism, unspecified type B-cell lymphoma, unspecified B-cell lymphoma type, unspecified body region (HCC) DDD (degenerative disc disease), lumbar Degeneration of lumbar or lumbosacral intervertebral disc Essential hypertension Unspecified essential hypertension [facility]* Diagnosis 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) [facility]* Diagnosis 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) [facility] Enlarged lymph nodes- Primary [...] of axilla (HCC) [facility] Diagnosis Hypopotassemia Essential hypertension Unspecified essential hypertension DDD (degenerative disc disease), lumbar Degeneration of lumbar or lumbosacral intervertebral disc [facility] Diagnosis Grade 2 follicular lymphoma [...] multiple regions (HCC) [facility]* Diagnosis Allergic contact dermatitis due to adhesives- Primary Contact dermatitis and other eczema due to other chemical products [employer] in place Other postprocedural status [facility] Diagnosis Need for influenza vaccination- Primary Need for prophylactic vaccination and inoculation against influenza Need for vaccination Need for prophylactic vaccination and inoculation against unspecified single disease [facility]* Diagnosis 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 [facility]* Diagnosis 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 [facility]* Diagnosis 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) [facility]* Diagnosis 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, secondary Other secondary thrombocytopenia [facility]* Diagnosis B-cell lymphoma, unspecified B-cell lymphoma type, unspecified body region (HCC)- Primary 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) [facility]* Diagnosis Onset Date Resolution Status Abdominal pain acute MARY (acute kidney injury) ac robyn Anticoagulant long-term use acute Non Hodgkin's lymphoma acute S/P laparoscopic cholecystectomy acute Acute cholecystitis resolved [facility] Work Phone: Evaluation note* Diagnosis Encounter for prophylactic measures, unspecified- [facility] Diagnosis 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) [facility] Diagnosis 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 [facility] Diagnosis 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 [facility] Diagnosis 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 [facility] Diagnosis 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) [facility] Diagnosis 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 [facility] Diagnosis Chronic kidney disease, unspecified CKD stage- Primary [facility] Diagnosis 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, secondary Other secondary thrombocytopenia [facility] Diagnosis 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, secondary Other secondary thrombocytopenia [facility] Diagnosis Essential hypertension- Primary Unspecified essential hypertension SOB (shortness of breath) Shortness of breath B-cell lymphoma, unspecified B-cell lymphoma type, unspecified body region (HCC) Chronic respiratory failure with hypoxia (HCC) Chronic respiratory failure Intermittent lightheadedness Dizziness and giddiness [facility] Diagnosis Hypopotassemia DDD (degenerative disc disease), lumbar Degeneration of lumbar or lumbosacral intervertebral disc [facility] Diagnosis 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, secondary Other secondary thrombocytopenia [facility] Diagnosis 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, secondary Other secondary thrombocytopenia Chronic kidney disease, unspecified CKD stage [facility] Diagnosis Essential tremor- Primary Essential [...] examination of urine [facility] Diagnosis Essential hypertension Unspecified essential hypertension [facility] Diagnosis 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) [facility] Diagnosis Acute generalized exanthematous pustulosis due to drug- Primary Dermatitis due to drugs and medicines taken internally [facility] Diagnosis 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 [facility] Diagnosis Combined forms of age-related cataract of right eye- Primary Other and combined forms of senile cataract Combined forms of age-related cataract of left eye Other and combined forms of senile cataract Ocular hypertension, bilateral Borderline glaucoma with ocular hypertension Essential hypertension Unspecified essential hypertension [facility] Diagnosis 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 [facility] Diagnosis Acute pain of left shoulder- Primary Muscle tension pain [facility] Diagnosis Mixed hyperlipidemia- Primary Essential [...] lumbosacral intervertebral disc [facility] Diagnosis Left arm pain- Primary Pain in limb [facility] Diagnosis Left arm pain- Primary Pain in limb Neck pain Cervicalgia [facility] Diagnosis Left arm pain- Primary Pain in limb Neck pain Cervicalgia [facility] Diagnosis Left arm pain- Primary Pain in limb Neck pain Cervicalgia [facility] Diagnosis Left arm pain- Primary Pain in limb Neck pain Cervicalgia [facility]* Diagnosis Grade 2 follicular lymphoma [...] unspecified body region (HCC) Hypothyroidism, unspecified type USP current use of anticoagulant therapy Long-term (current) use of anticoagulants Valvular heart disease Endocarditis, valve unspecified, unspecified cause [facility] Diagnosis CHRISTIANA (obstructive sleep apnea)- Primary Obstructive sleep apnea (adult) (pediatric) [facility]* Diagnosis Encounter for screening mammogram [...] head and neck [facility] Diagnosis Urinary frequency- Primary [facility]* Diagnosis Neck mass Swelling, mass, or lump in head and neck [facility]* Diagnosis 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) Encounter for screening mammogram for malignant neoplasm of breast Other screening mammogram [facility] Diagnosis 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 [facility] Diagnosis Essential hypertension- Primary Unspecified essential [...] thrombosis and embolism [facility] Diagnosis Anxiety with depression [facility] Diagnosis 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 Enlarged lymph nodes Enlargement of lymph nodes Abnormal CT of the abdomen Nonspecific (abnormal) findings on radiological and other examination of abdominal area, including retroperitoneum [facility] Diagnosis Anxiety with depression- Primary Left arm pain Pain in limb Neck pain Cervicalgia DDD (degenerative disc disease), lumbar Degeneration of lumbar or lumbosacral intervertebral disc [facility] Diagnosis Urinary incontinence without sensory awareness- Primary Incontinence without sensory awareness [facility] Diagnosis Diarrhea, unspecified type- Primary Anxiety with depression Chilling Chills (without fever) Chills Chills (without fever) [facility] Diagnosis Diarrhea, unspecified type- Primary Sinobronchitis Unspecified sinusitis (chronic) [facility] Diagnosis Left arm pain Pain in limb Neck pain Cervicalgia DDD (degenerative disc disease), lumbar Degeneration of lumbar or lumbosacral intervertebral disc Diarrhea, unspecified type [facility] Diagnosis Diarrhea, unspecified type Essential hypertension Unspecified essential hypertension 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) Enlarged lymph nodes Enlargement of lymph nodes Abnormal CT of the abdomen Nonspecific (abnormal) findings on radiological and other examination of abdominal area, including retroperitoneum Hypertensive urgency Unspecified essential hypertension [facility] Diagnosis Diarrhea of infectious origin- [...] soft tissue, unspecified [facility]* Diagnosis Hypopotassemia [facility]* Diagnosis BPPV (benign paroxysmal positional vertigo), unspecified laterality- Primary [facility]* Diagnosis 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) Enlarged lymph nodes Enlargement of lymph nodes Abnormal CT of the abdomen Nonspecific (abnormal) findings on radiological and other examination of abdominal area, including retroperitoneum [facility] Diagnosis Soft tissue mass Disorders of soft tissue, unspecified [facility]* Diagnosis 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 [facility]* Diagnosis Encounter for screening for malignant neoplasm of colon- Primary Special screening for malignant neoplasms, colon Diarrhea, unspecified type [facility] Diagnosis Essential hypertension- Primary Unspecified essential hypertension GERD without esophagitis Esophageal reflux Diarrhea, unspecified type [facility]* Diagnosis Pre-operative examination- Primary Preoperative [...] Urinary frequency- Primary [facility] Diagnosis Pre-operative examination- Primary Preoperative examination, [...] Dizziness and giddiness [facility] Diagnosis Pre-operative examination- Primary Preoperative examination, [...] Neck pain Cervicalgia [facility] Diagnosis Pre-operative examination- Primary Preoperative examination, [...] of left shoulder [facility] Diagnosis Pre-operative examination- Primary Preoperative examination, [...] subsequent encounter Hypopotassemia [facility] Diagnosis SOB (shortness of breath) Shortness [...] intubation, initial encounter [facility] Diagnosis Upper back pain on left side- Primary Pain in thoracic spine [facility] Diagnosis Chest pain, unspecified type Pre-operative [...] intubation, initial encounter [facility] Diagnosis Chills Chills (without fever) Pre-operative [...] intubation, initial encounter [facility] Diagnosis Infected sebaceous cyst of skin [...] intubation, initial encounter [facility] Diagnosis Encounter by telehealth for suspected [...] intubation, initial encounter [facility] Diagnosis Pre-operative examination- Primary Preoperative examination, [...] Unspecified essential hypertension [facility] Diagnosis Pre-operative examination- Primary Preoperative examination, [...] recurrence not specified [facility] Diagnosis Pre-operative examination- Primary Preoperative examination, [...] Other screening mammogram [facility] Diagnosis Pre-operative examination- Primary Preoperative examination, [...] Anxiety with depression [facility] Diagnosis Pre-operative examination- Primary Preoperative examination, [...] without status migrainosus [facility] Diagnosis Pre-operative examination- Primary Preoperative examination, [...] hematuria Acute cystitis [facility] Diagnosis Pre-operative examination- Primary Preoperative examination, [...] Worsening headaches Headache documented in this encounter [facility]* Diagnosis Pre-operative examination- Primary Preoperative [...] multiple regions (HCC) documented in this encounter [facility] note* Diagnosis Pre-operative examination- Primary Preoperative [...] regions (HCC)- Primary [facility] Diagnosis Pre-operative examination- Primary Preoperative examination, [...] regions (HCC)- Primary documented in this encounter [facility] note* Diagnosis Pre-operative examination- Primary Preoperative [...] regions (HCC)- Primary documented in this encounter [facility]* Diagnosis Pre-operative examination- Primary Preoperative [...] regions (HCC)- Primary [facility] Diagnosis Pre-operative examination- Primary Preoperative examination, [...] regions (HCC)- Primary [facility] Diagnosis Pre-operative examination- Primary Preoperative examination, [...] site Acute cough [facility] Diagnosis Pre-operative examination- Primary Preoperative examination, [...] encounter Acute cough [facility] Diagnosis Pre-operative examination- Primary Preoperative examination, [...] of unspecified site documented in this encounter [facility] note* Diagnosis Pre-operative examination- Primary Preoperative [...] multiple regions (HCC) documented in this encounter [facility] note* Diagnosis Pre-operative examination- Primary Preoperative [...] of multiple sites [facility] information [facility] Work Phone: Evaluation note* Diagnosis Pre-operative [...] incontinence, unspecified type [facility] Diagnosis Pre-operative examination- Primary Preoperative examination, [...] with neurogenic claudication [facility] Diagnosis Pre-operative examination- Primary Preoperative examination, [...] Unspecified essential hypertension [facility] Diagnosis Pre-operative examination- Primary Preoperative examination, [...] of multiple sites documented in this encounter [facility] note* Diagnosis Pre-operative examination- Primary Preoperative [...] regions (HCC)- Primary documented in this encounter [facility]* Diagnosis Onset Date Resolution Status Admit Date Vertigo acute April 01 5:35pm [facility] Work Phone: History and physical note Author Andrade Tapia [facility] Note Date/Time April 01, 2025 5:46 pm [facility] Medical Records Department [address] [place] [address] H&P Exam - Hospitalist 04/01/25 1741 MR#: [id number] Acct: [id number] Name: ANNELLISA F Rep #:[id number] : 1945 79 From: Andrade Tapia DO PCP: Dr. Sylvia Lizama MD Status:ADM I N Location: [place] [address] HPI - General General Date of Admission: [...] the hospital service was contacted for admission. [facility] Medical History DVT (deep venous thrombosis) Post-menopausal [...] vaccine, mRNA, Allergy Anaphylaxis Verified 04/01/25 12:34 [id number], erythromycin base Allergy Rash Verified 04/01/25 12:34 [...] % (Auto) 62.6, Lymph % (Auto) 23.5, Centre % (Auto) 9.6, Eos % (Auto) 3.9, [...] loss and chronic microangiopathic changes. Reading Location: [id number] Assessment & Plan Assessment/Plan (1) Vertigo: PLAN: [...] full code. Charges/Coding Visit Charges Inpatient E&M: 80245 Init Hosp L3 04/01/25 1746 <Electronically signed by Andrade Tapia DO> Cosigner Signature (if applicable): CC: Dr. Andrade Tapia DO; Dr. Sylvia Lizama MD~ Signed [facility] Work Phone: Instructions* Instruction Description Start Date Completed [facility] Work Phone: Reason for referral (narrative)* Diagnostic Procedure Only (Routine) - Authorized Specialty Diagnoses / Procedures Referred By Donnie dietrich Referred To Contact [facility] Diagnoses Encounter for screening mammogram for malignant neoplasm of breast Procedures ROXANNE SCREENING W ANTHONY SCREENING DIGITAL BREAST TOMOSYNTHESIS BI SCREENING MAMMOGRAPHY BI 2-VIEW BREAST INC CAD Melba Escudero MD [address] [place] [address] [facility] [address] [place] [address] Referral ID Status Reason Start Date Expiration Date Visits Requested Visits Authorized [id number] Authorized Auto-Generat ed Referral 01/29/2022 02/28/2023 1 1 * MRI/CT (Routine) - Authorized Specialty Diagnoses / Procedures Referred By Donnie dietrich Referred To Contact CT IMAGING Diagnoses 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) Procedures CT CHEST W IVCON DIAGNOSTIC COMPUTED TOMOGRAPHY THORAX W/CONTRAST Melba Escudero MD [address] [facility] [place] [address] Ct Imaging Referral ID Status Reason Start Date Expiration Date Visits Requested Visits Authorized [id number] Authorized Auto-Generat ed Referral 05/01/2022 02/28/2023 1 1 * MRI/CT (Routine) - Authorized Specialty Diagnoses / Procedures Referred By Contac t Referred To Contact CT IMAGING Diagnoses 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) Procedures CT ABD/PEL W IVCON CT ABD & PELVIS W/CONTRAST Melba Escudero MD [address] [place] [address] Ct Imaging Referral ID Status Reason Start Date Expiration Date Visits Requested Visits Authorized [id number] Authorized Auto-Generat ed Referral 05/01/2022 02/28/2023 1 1 [facility] for referral (narrative)* Diagnostic Procedure Only (Routine) - Authorized Specialty Diagnoses / Procedures Referred By Contac t Referred [facility] Diagnoses CHRISTIANA (obstructive sleep apnea) Procedures HOME SLEEP APNEA TEST (HSAT) SLEEP STD AIRFLOW HRT RATE&O2 SAT EFFORT Sylvia Myers MD [address] [place] [address] [facility] [place] [address] [place] [address] Referral ID Status Reason Start Date Expiration Date Visits Requested Visits Authorized [id number] Authorized Auto-Generat ed Referral 11/27/2022 11/27/2023 1 1 [facility] for referral (narrative)* Diagnostic Procedure Only (Routine) - Closed Specialty Diagnoses / Procedures Referred By Contac t Referred To Contact XR IMAGING Diagnoses Acute pain of left shoulder Procedures XR SHOULDER GENERAL 3V OR MORE AP/TRUE AP/OTHER LEFT RADEX SHOULDER COMPLETE MINIMUM 2 VIEWS Elissa Felipe, [employer] [place] [address] [place] [address] Xr Imaging Referral ID Status Reason Start Date Expiration Date V isits Requested Visits Authorized [id number] Closed Auto-Generate d Referral 03/24/2023 04/22/2024 1 1 [facility] for referral (narrative)* Outpatient Procedure (Routine) - Authorized Specialty Diagnoses / Procedures Referred By Contac t Referred [facility] Diagnoses Bilateral carotid artery stenosis Procedures US CAROTID ARTERIES [facility] DUPLEX SCAN EXTRACRANIAL ART COMPL BI STUDY Sylvia Lizama MD [address] [place] [address] [facility] [address] [address] Referral ID Status Reason Start Date Expiration Date Visits Requested Visits Authorized [id number] Authorized Auto-Generat ed Referral 04/03/2023 04/02/2024 1 1 * Diagnostic Procedure Only (Routine) - Closed Specialty Diagnoses / Procedures Referred By Contac t Referred To Contact XR IMAGING Diagnoses Left arm pain Neck pain Procedures XR CERV OTHER 4V AP/LAT/OBL RADEX SPINE CERVICAL 4 OR 5 VIEWS Sylvia Lizama MD [address] [place] [address] Xr Imaging Referral ID Status Reason Start Date Expiration Date V isits Requested Visits Authorized [id number] Closed Auto-Generate d Referral 04/03/2023 05/02/2024 1 1 * Physical Therapy (Routine) - Authorized Specialty Diagnoses / Procedures Referred By Contac t Referred To Contact [facility] Diagnoses Left arm pain Neck pain Procedures CONSULT TO PHYSICAL THERAPY PHYSICAL THERAPY EVALUATION HIGH COMPLEX 45 MINS Sylvia Lizama MD [facility] [place] [address] [facility] [address] [address] Referral ID Status Reason Start Date Expiration Date Visits Requested Visits Authorized [id number] Authorized PCP Requested Referral Auto-Generate d Referral 04/03/2023 04/02/2024 99 99 T [facility] for referral (narrative)* Diagnostic Procedure Only (Routine) - Authorized Specialty Diagnoses / Procedures Referred By Donnie t Referred To Contact [facility] Diagnoses Encounter for screening mammogram for malignant neoplasm of breast Procedures ROXANNE SCREENING W ANTHONY SCREENING DIGITAL BREAST TOMOSYNTHESIS BI SCREENING MAMMOGRAPHY BI 2-[place] [address] [place] [id number] [facility] [address] [place] [address] Referral ID Status Reason Start Date Expiration Date Visits Requested Visits Authorized [id number] Authorized Auto-Generat ed Referral 06/13/2023 07/12/2024 1 1 T [facility] for referral (narrative)* Outpatient Procedure (Routine) - Authorized Specialty Diagnoses / Procedures Referred By Contcaryl t Referred To Contact [facility] [place] Diagnoses Valvular heart disease Procedures ECHO ECHO TTHRC R-T 2D W/WOM-MODE COMPL SPEC&COLR D Sylvia Lizama MD [address] [place] [address] [facility] [address] [place] [address] Referral ID Status Reason Start Date Expiration Date Visits Requested Visits Authorized [id number] Authorized Auto-Generat ed Referral 07/07/2024 1 1 [facility] for referral (narrative)* Diagnostic Procedure Only (Routine) - Closed Specialty Diagnoses / Procedures Referred By Donnie t Referred To Contact [facility] Diagnoses Encounter for screening mammogram for malignant neoplasm of breast Procedures ROXANNE SCREENING W ANTHONY SCREENING DIGITAL BREAST TOMOSYNTHESIS BI SCREENING MAMMOGRAPHY BI 2-[place] [address] [place] [id number] [facility] [address] [place] [address] Referral ID Status Reason Start Date Expiration Date V isits Requested Visits Authorized [id number] Closed Auto-Generate d Referral 06/13/2023 07/12/2024 1 1 [facility] for referral (narrative)* Diagnostic Procedure Only (Routine) - Authorized Specialty Diagnoses / Procedures Referred By Contac t Referred To Contact [facility] Diagnoses Neck mass Procedures US HEAD/NECK SOFT TISSUE OTHER US SOFT TISSUE HEAD & NECK REAL TIME IMGE Sathya Roa MD [address] [place] [address] [place] [address] Referral ID Status Reason Start Date Expiration Date Visits Requested Visits Authorized [id number] Authorized Auto-Generat ed Referral 10/27/2023 11/25/2024 1 1 [facility] for referral (narrative)* Outpatient Procedure (Routine) - Authorized Specialty Diagnoses / Procedures Referred By Contac t Referred To Contact [facility] Diagnoses Diarrhea, unspecified type Procedures COLONOSCOPY DIAGNOSTIC COLONOSCOPY FLX DX W/COLLJ SPEC WHEN PFRMD Zeny Crowder MD [address] [place] [address] [facility] [place] [address] [place] [address] Referral ID Status Reason Start Date Expiration Date Visits Requested Visits Authorized [id number] Authorized Auto-Generat ed Referral 03/29/2024 03/29/2025 1 1 T [facility] for referral (narrative)* Diagnostic Procedure Only (Routine) - Authorized Specialty Diagnoses / Procedures Referred By Contac t Referred To Contact US IMAGING Diagnoses Soft tissue mass Procedures US EXTREMITY MASS/FLUID COLLECTION LEFT Sylvia Lizama MD [address] [place] [address] [place] [address] Referral ID Status Reason Start Date Expiration Date Visits Requested Visits Authorized [id number] Authorized Auto-Generat ed Referral 04/02/2024 05/02/2025 1 1 [facility] for referral (narrative)* Diagnostic Procedure Only (Routine) - Closed Specialty Diagnoses / Procedures Referred By Contac t Referred To Contact US IMAGING Diagnoses Soft tissue mass Procedures US EXTREMITY MASS/FLUID COLLECTION LEFT Sylvia Lizama MD [address] [place] [address] [place] [address] Referral ID Status Reason Start Date Expiration Date V isits Requested Visits Authorized [id number] Closed Auto-Generate d Referral 04/02/2024 05/02/2025 1 1 [facility] for referral (narrative)* Outpatient Procedure (Routine) - Closed Specialty Diagnoses / Procedures Referred By Contac t Referred To Contact [facility] Diagnoses Diarrhea, unspecified type Procedures COLONOSCOPY DIAGNOSTIC COLONOSCOPY FLX DX W/COLLJ SPEC WHEN PFRMD Zeny Crowder MD [address] [place] [address] [facility] [place] [address] [place] [id number] Referral ID Status Reason Start Date Expiration Date V isits Requested Visits Authorized [id number] Closed Auto-Generate d Referral 03/29/2024 03/29/2025 1 1 [facility] for referral (narrative)* Diagnostic Procedure Only (Routine) - Closed Specialty Diagnoses / Procedures Referred By Contac t Referred To Contact XR IMAGING Diagnoses Left arm pain Neck pain Procedures XR CERV OTHER 4V AP/LAT/OBL RADEX SPINE CERVICAL 4 OR 5 VIEWS Sylvia Lizama MD [address] [place] [address] [place] [address] Referral ID Status Reason Start Date Expiration Date V isits Requested Visits Authorized [id number] Closed Auto-Generate d Referral 04/03/2023 05/02/2024 1 1 [facility] for referral (narrative)* Diagnostic Procedure Only (Routine) - Closed Specialty Diagnoses / Procedures Referred By Contac t Referred To Contact XR IMAGING Diagnoses Acute pain of left shoulder Procedures XR SHOULDER GENERAL 3V OR MORE AP/TRUE AP/OTHER LEFT RADEX SHOULDER COMPLETE MINIMUM 2 VIEWS Elissa Felipe, [place] [address] [place] [address] [place] [address] Referral ID Status Reason Start Date Expiration Date V isits Requested Visits Authorized [id number] Closed Auto-Generate d Referral 03/24/2023 04/22/2024 1 1 [facility] for referral (narrative)No reason for referral [facility] Narrative* Diagnostic Procedure Only (Routine) - Closed Specialty Diagnoses / Procedures Referred By Contac t Referred To Contact BR IMAGING Diagnoses Encounter for screening mammogram for malignant neoplasm of breast Procedures ROXANNE SCREENING W ANTHONY SCREENING DIGITAL BREAST TOMOSYNTHESIS BI SCREENING MAMMOGRAPHY BI 2-[place] [address] [place] [address] [facility] [address] [place] [address] Referral ID Status Reason Start Date Expiration Date V isits Requested Visits Authorized [id number] Closed Auto-Generate d Referral 06/13/2023 07/12/2024 1 1 [facility] for visit Narrative* Outpatient Procedure (Routine) - Closed Specialty Diagnoses / Procedures Referred By Contac t Referred To Contact [facility] Diagnoses Diarrhea, unspecified type Procedures COLONOSCOPY DIAGNOSTIC COLONOSCOPY FLX DX W/COLLJ SPEC WHEN PFRMD Zeny Crowder MD [address] [place] [address] [facility] [place] [address] [place] [address] Referral ID Status Reason Start Date Expiration Date V isits Requested Visits Authorized [id number] Closed Auto-Generate d Referral 03/29/2024 03/29/2025 1 1 [facility] for visit Narrative* Diagnostic Procedure Only (Routine) - Closed Specialty Diagnoses / Procedures Referred By Contac t Referred To Contact XR IMAGING Diagnoses Left arm pain Neck pain Procedures XR CERV OTHER 4V AP/LAT/OBL RADEX SPINE CERVICAL 4 OR 5 VIEWS Sylvia Lizama MD [address] [place] [address] [place] [address] Referral ID Status Reason Start Date Expiration Date V isits Requested Visits Authorized [id number] Closed Auto-Generate d Referral 04/03/2023 05/02/2024 1 1 [facility] for visit Narrative* Diagnostic Procedure Only (Routine) - Closed Specialty Diagnoses / Procedures Referred By Contac t Referred To Contact XR IMAGING Diagnoses Acute pain of left shoulder Procedures XR SHOULDER GENERAL 3V OR MORE AP/TRUE AP/OTHER LEFT RADEX SHOULDER COMPLETE MINIMUM 2 VIEWS Elissa Felipe, [employer]STATE [employer]ENDER.[place] [address] [place] [address] [place] [address] Referral ID Status Reason Start Date Expiration Date V isits Requested Visits Authorized [id number] Closed Auto-Generate d Referral 03/24/2023 04/22/2024 1 1 [facility] for visit Narrative* Diagnostic Procedure Only (Routine) - Closed Specialty Diagnoses / Procedures Referred By Contac t Referred To Contact BR IMAGING Diagnoses 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) Encounter for screening mammogram for malignant neoplasm of breast Procedures ROXANNE SCREENING W ANTHONY SCREENING DIGITAL BREAST TOMOSYNTHESIS BI SCREENING MAMMOGRAPHY BI 2-VIEW BREAST INC Brendon Hines, COMMERCIAL REAL ESTATE LENDER.[place]ER [place] [address] [place] [address] [facility] [address] [facility] [place] [address] Referral ID Status Reason Start Date Expiration Date V isits Requested Visits Authorized [id number] Closed Auto-Generate d Referral 12/16/2023 01/14/2025 1 1 [facility] for visit Narrative* MRI/CT (Routine) - Closed Specialty Diagnoses / Procedures Referred By Contac t Referred To Contact CT IMAGING Diagnoses 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) Procedures CT ABD/PEL W IVCON CT ABD & PELVIS W/CONTRAST César Quintero, DO [address] [facility] [place] [address] Phone: tel: fax: [place] [address] Referral ID Status Reason Start Date Expiration Date V isits Requested Visits Authorized [id number] Closed Auto-Generate d Referral 09/03/2024 10/03/2025 1 1 [facility] for visit Narrative* MRI/CT (Routine) - Closed Specialty Diagnoses / Procedures Referred By Donnie dietrich Referred To Contact CT IMAGING Diagnoses 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) Procedures CT CHEST W IVCON DIAGNOSTIC COMPUTED TOMOGRAPHY THORAX W/CONTRAST César Quintero, DO [address] [place] [address] Phone: tel: fax: [place] [address] Referral ID Status Reason Start Date Expiration Date V isits Requested Visits Authorized [id number] Closed Auto-Generate d Referral 12/10/2024 01/09/2026 1 1 [facility] Summary Purpose Family History Relationship Condition Age at Onset Recorded Date/T jacki mother Hypertension Unknown Advance Directives Documents on File Type Date Recorded Patient Event Management Consultant Expl anation ACP-Advance Directive ACP-Power of Material Mixer Latest Code Status on File Code Status Date Activated Date Inactivated Comments Full Code 08/07/2018 8:13 PM 08/10/2018 8:44 PM Limited 08/03/2018 4:44 AM 08/07/2018 8:11 PM Intubation/Re-intubation: No Defibrillation/Cardioversion: Yes Chest Compressions: Yes Resuscitative Medications: Yes Full Code 08/02/2018 12:15 AM 08/03/2018 4:44 AM Documents on File Type Date Recorded Patient Event Management Consultant Expl anation Advance Directives and Living Will Power of Material Mixer Documents on File Type Date Recorded Patient Event Management Consultant Expl anation Advance Directive(s) 05/19/2021 3:38 PM [...] Documents on File Type Date Recorded Patient Event Management Consultant Expl anation Advance Directive(s) 05/19/2021 3:38 PM [...] Date/ Time Name of Medical Power of Material Mixer Shauna Up July 30, 2022 2:38pm Advance Directives Yes July 26, 2016 3:22pm Living Will No July 30 2:38pm Power of Material Mixer Yes July 30, 2022 2:38pm Latest Code [...] No November 06, 025 2:28pm Power of Material Mixer No November 06, 2024 2:28pm Living Will Yes November 26, 2024 11:17am Power of Material Mixer Yes November 26 11:17am Name of Medical Power of Material Mixer DAUGHTER November 26, 2024 11:17am Advance Directives Yes July 26, 2016 3:22pm Advance Directive Response Recorded Date/ Time Living Will No November 06, 025 3:28pm Power of Material Mixer No November 06, 2024 3:28pm Living Will Yes November 26, 2024 6:31pm Power of Material Mixer Yes November 26 6:31pm Name of Medical Power of Material Mixer DAUGHTER - Nancy Wong November 26, 2024 6:31pm Advance Directives Yes July 26, 2016 4:22pm Advance Directive Response Recorded Date/ Time Do you have a Healthcare Power of Material Mixer? No April 01, 2025 2:54pm Advance Directives Yes July 26, 2016 4:22pm Discharge Instructions * Attachments The following attachments cannot be sent through Care Everywhere. * UTI (Urinary Tract Infection): Female (Beninese) documented in this encounter* Instructions* Pavel Watts MD - 09/13/2020 We will contact you if any of your viral studies are positive including COVID 19. Contact her physician's office for a follow-up appointment. * Attachments The following attachments cannot be sent through Care Everywhere. * URI (Upper Respiratory Infection) (Beninese) documented in this encounter Assessments Diagnosis Acute [...] ml over 60 minutes. 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) Procedures CT CHEST W IVCON DIAGNOSTIC COMPUTED TOMOGRAPHY THORAX W/CONTRAST Melba Escudero MD [address] [place] [address] Ct Imaging Referral ID Status Reason Start Date Expiration Date Visits Requested Visits Authorized [id number] Authorized Auto-Generat ed Referral 08/30/2022 09/29/2023 1 1 Specialty Diagnoses / Procedures Referred By Contac t Referred To Contact CT IMAGING Diagnoses 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) Procedures CT CHEST W IVCON DIAGNOSTIC COMPUTED TOMOGRAPHY THORAX W/CONTRAST Melba Escudero MD [address] [place] [address] Ct Imaging [facility] Referral ID Status Reason Start Date Expiration Date V isits Requested Visits Authorized [id number] Closed Auto-Generate d Referral 12/29/2022 10/30/2023 1 1 Specialty Diagnoses / Procedures Referred By Contac t Referred To Contact CT IMAGING Diagnoses 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 [address] Ct Imaging [facility] Referral ID Status Reason Start Date Expiration Date V isits Requested Visits Authorized [id number] Closed Auto-Generate d Referral 12/02/2022 12/25/2023 1 1 Referral ID Status Reason Start Date Expiration Date V isits Requested Visits Authorized [id number] Closed Auto-Generate d Referral 08/30/2022 09/29/2023 1 1 Referral ID Status Reason Start Date Expiration Date V isits Requested Visits Authorized [id number] Closed Auto-Generate d Referral 08/30/2022 09/29/2023 1 1 Specialty Diagnoses / Procedures Referred By Contac t Referred To Contact CT IMAGING Diagnoses 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 MDM 60 MINUTES Shaila Rincon COMMERCIAL [employer] ESTATE LENDER.TIER [place] [address] [place] [address] Referral ID Status Reason Start Date Expiration Date Visits Requested Visits Authorized [id number] Authorized PCP Requested Referral Auto-Generate d Referral 02/19/2024 02/18/2025 1 1 Specialty Diagnoses / Procedures Referred By Contac t Referred To Contact Gastroenterology Diagnoses Diarrhea, unspecified type Procedures CONSULT TO GASTROENTEROLOGY OFFICE/OUTPATIENT NEW HIGH MDM 60 MINUTES Judith Pickard APRN.GRADUATE RESEARCH ASSISTANT [address] [place] [address] Referral ID Status Reason Start Date Expiration Date Visits Requested Visits Authorized [id number] Authorized PCP Requested Referral 03/04/2024 03/04/2025 1 1 Specialty Diagnoses / Procedures Referred By Contac t Referred To Contact [facility] Diagnoses BPPV (benign paroxysmal positional vertigo), unspecified laterality Procedures CONSULT TO PHYSICAL THERAPY PHYSICAL THERAPY EVALUATION HIGH COMPLEX 45 MINS Judith Pickard COMMERCIAL REAL ESTATE LENDER.TIER [place] [address] [place] [address] [facility] [place] [address] [place] [address] Referral ID Status Reason Start Date Expiration Date Visits Requested Visits Authorized [id number] Authorized PCP Requested Referral Auto-Generate d Referral 04/15/2024 04/08/2025 99 99 Specialty Diagnoses / Procedures Referred By Contac t Referred To Contact CT IMAGING Diagnoses 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) Procedures CT CHEST W IVCON DIAGNOSTIC COMPUTED TOMOGRAPHY THORAX W/CONTRAST Brendon Coppola APRN.TIER [place] [address] [place] [address] [place] [address] Referral ID Status Reason Start Date Expiration Date Visits Requested Visits Authorized [id number] Authorized Auto-Generat ed Referral 04/26/2024 05/26/2025 1 1 Specialty Diagnoses / Procedures Referred By Contac t Referred To Contact CT IMAGING Diagnoses 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) Procedures CT ABD/PEL W IVCON CT ABD & PELVIS W/CONTRAST Brendon Coppola, COMMERCIAL REAL ESTATE LENDER.TIER [place] [address] [place] [address] [place] [address] Referral ID Status Reason Start Date Expiration Date Visits Requested Visits Authorized [id number] Authorized Auto-Generat ed Referral 04/26/2024 05/26/2025 1 1 Specialty Diagnoses / Procedures Referred By Contac t Referred To Contact Urology Diagnoses Urge incontinence Procedures CONSULT TO UROLOGY CONSULT TO UROLOGY OFFICE/OUTPATIENT [facility]3] 60 MINUTES Judith Pickard COMMERCIAL REAL ESTATE LENDER.TIER [place] [address] [place] [address] Referral ID Status Reason Start Date Expiration Date Visits Requested Visits Authorized [id number] Ref Not Required PCP Requested Referral 06/17/2024 06/17/2025 1 1 Specialty Diagnoses / Procedures Referred By Contac t Referred To Contact Ophthalmology Diagnoses Vision changes Procedures CONSULT TO OPHTHALMOLOGY OFFICE/OUTPATIENT [facility] 60 MINUTES Judith Pickard, COMMERCIAL REAL ESTATE LENDER.TIER [place] [address] [place] [address] Referral ID Status Reason Start Date Expiration Date Visits Requested Visits Authorized [id number] Authorized PCP Requested Referral 4 07/02/2025 1 1 Specialty Diagnoses / Procedures Referred By Contac t Referred To Contact Neurology Diagnoses Disorder of labyrinth, unspecified laterality Procedures CONSULT TO NEUROLOGY OFFICE/OUTPATIENT [facility] 60 MINUTES Judith Pickard, COMMERCIAL REAL ESTATE LENDER.TIER [place] [address] [place] [address] Referral ID Status Reason Start Date Expiration Date Visits Requested Visits Authorized [id number] Authorized PCP Requested Referral 4 07/06/2025 1 1 Specialty Diagnoses / Procedures Referred By Contac t Referred To Contact Diagnoses Intractable chronic migraine with aura and without status migrainosus Missy Hirsch PA-C [address] [place] [address] Referral ID Status Reason Start Date Expiration Date V isits Requested Visits Authorized [id number] Pending Review 07/27/2024 09/25/2024 1 1 Referral ID Status Reason Start Date Expiration Date V isits Requested Visits Authorized [id number] Pending Review 07/27/2024 09/25/2024 1 1 Specialty Diagnoses / Procedures Referred By Contac t Referred To Contact MR IMAGING Diagnoses Worsening headaches Procedures MRI BRAIN WO/W IVCON MRI BRAIN BRAIN STEM W/O W/CONTRAST MATERIAL Missy Hirsch PA-C [address] [place] [address] [place] [address] Referral ID Status Reason Start Date Expiration Date Visits Requested Visits Authorized [id number] Authorized Auto-Generat ed Referral 07/27/2024 08/26/2025 1 1 Referral ID Status Reason Start Date Expiration Date V isits Requested Visits Authorized [id number] Closed Auto-Generate d Referral 07/27/2024 08/26/2025 1 1 Specialty Diagnoses / Procedures Referred By Contac t Referred To Contact CT IMAGING Diagnoses 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) Procedures CT ABD/PEL W IVCON CT ABD & PELVIS W/CONTRAST César Quintero, DO [address] [place] [address] [place] [address] Referral ID Status Reason Start Date Expiration Date Visits Requested Visits Authorized [id number] Authorized Auto-Generat ed Referral 4 10/03/2025 1 1 Specialty Diagnoses / Procedures Referred By Contac t Referred To Contact CT IMAGING Diagnoses 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 DATE CREATED AUTHOR AUTHOR'S ORGANIZ ATION 03/13/2018 [facility] DATE CREATED AUTHOR AUTHOR'S ORGANIZ ATION 06/26/2019 [facility] DATE CREATED AUTHOR AUTHOR'S ORGANIZ ATION 05/02/2021 [facility] DATE CREATED AUTHOR AUTHOR'S ORGANIZ ATION 07/15/2021 [facility] DATE CREATED AUTHOR AUTHOR'S ORGANIZ ATION 09/09/2021 [facility] DATE CREATED AUTHOR AUTHOR'S ORGANIZ ATION 09/11/2021 [facility] DATE CREATED AUTHOR AUTHOR'S ORGANIZ ATION 06/21/2022 [facility] DATE CREATED AUTHOR AUTHOR'S ORGANIZ ATION 08/08/2022 [facility] DATE CREATED AUTHOR AUTHOR'S ORGANIZ ATION 01/08/2025 [facility] DATE CREATED AUTHOR AUTHOR'S ORGANIZ ATION 03/24/2025 [facility] Reason for Visit (unrecogniz ed section and content) Reason Comments Non-Chemotherapy Treatment Specialty Diagnoses / Procedures Referred By Contac t Referred To Contact Diagnoses 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) César Quintero, DO [address] [place] [address] [facility] [address] [place] [address] Referral ID Status Reason Start Date Expiration Date V isits Requested Visits Authorized [id number] Authorized 09/03/2024 12/02/2024 [address] Specialty Diagnoses / Procedures Referred By Contac t Referred To Contact CT IMAGING Diagnoses 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) Procedures CT CHEST W IVCON DIAGNOSTIC COMPUTED TOMOGRAPHY THORAX W/CONTRAST [place] [address] [address] Imaging [place] [address] Referral ID Status Reason Start Date Expiration Date V isits Requested Visits Authorized [id number] Closed Auto-Generate d Referral 12/29/2022 10/30/2023 1 1 Reason Comments Chemotherapy Treatment Specialty Diagnoses / Procedures Referred By Donnie dietrich Referred To Contact Diagnoses 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) Melba Escudero MD [address] [place] [address] [facility] [address] [place] [address] Referral ID Status Reason Start Date Expiration Date V isits Requested Visits Authorized [id number] Authorized 05/22/2022 08/20/2022 99 99 Reason Comments [...] mammogram Procedures CONSULT TO GENERAL SURGERY OFFICE/OUTPATIENT [facility] MDM 60-74 MINUTES Melba Escudero MD [address] [place] [address] [facility] [address] [place] [address] Referral ID Status Reason Start Date Expiration Date V isits Requested Visits Authorized [id number] Closed PCP Requested Referral 05/03/2022 05/03/2023 1 [...] Imodium Reason Comments Care Coordination Admitted to [facility] Reason Comments Appointment Reason Comments 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 [address] [facility] [address] [place] [address] Referral ID Status Reason Start Date Expiration Date V isits Requested Visits Authorized [id number] Authorized 12/17/2022 03/17/2023 99 99 Reason Comments Ocular Hypertension Follow Up Patient he re as directed for intraocular pressure check Both Eyes. 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 [address] [facility] [address] [place] [address] Reason Comments AVS 12/17/22 Reason Comments Pain [...] COMPLEX 45 MINS Sylvia Lizama MD [address] [phone] [facility] [address] [place] [address] Referral ID Status Reason Start Date Expiration Date Visits Requested Visits Authorized [id number] Authorized PCP Requested Referral Auto-Generate d Referral 04/03/2023 04/02/2024 99 99 Reason Comments Established Patient Reason Comments Follow Up 3 month Reason Comments CPAP Supplies order Referral ID Status Reason Start Date Expiration Date V isits Requested Visits Authorized [id number] Closed Auto-Generate d Referral 08/30/2022 09/29/2023 1 1 Specialty Diagnoses / [facility] Diagnoses 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) Encounter for screening mammogram for malignant neoplasm of breast Procedures CT CHEST W IVCON DIAGNOSTIC COMPUTED TOMOGRAPHY THORAX W/CONTRAST Brendon Coppola, [employer] [address] [place] [address] [place] [address] Referral ID Status Reason Start Date Expiration Date V isits Requested Visits Authorized [id number] Closed Auto-Generate d Referral 12/16/2023 01/14/2025 [address] Specialty Diagnoses / Procedures Referred By Contac t Referred To Contact CT IM[facility]ING Diagnoses 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) Encounter for screening mammogram for malignant neoplasm of breast Procedures CT CHEST W IVCON DIAGNOSTIC COMPUTED TOMOGRAPHY THORAX W/CONTRAST Brendon Coppola, [employer] [address] [place] [address] [place] [address] Reason Comments 6 Month Exam Reason Comments [...] NEW HIGH MDM 60 MINUTES Judith Pickard [employer] [address] [place] [address] Referral ID Status Reason Start Date Expiration Date V isits Requested Visits Authorized [id number] Closed PCP Requested Referral 03/04/2024 03/04/2025 1 [...] CT ABD & PELVIS W/CONTRAST Brendon Coppola, [employer] [address] [place] [address] [place] [address] Referral ID Status Reason Start Date Expiration Date V isits Requested Visits Authorized [id number] Closed Auto-Generate d Referral 01/08/2024 02/06/2025 1 1 Specialty Diagnoses / Procedures Referred By Contac t Referred To Contact CT IMAGING Diagnoses 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) Enlarged lymph nodes Abnormal CT of the abdomen Procedures CT ABD/PEL W IVCON CT ABD & PELVIS W/CONTRAST Brendon Coppola, [employer] [address] [place] [address] [place] [address] Reason Comments Radiology [place] Specialty Diagnoses / Procedures Referred By Contac t Referred To Contact [facility] Diagnoses Soft tissue mass Procedures US EXTREMITY MASS/FLUID COLLECTION LEFT Sylvia Lizama MD [address] [place] [address] [place] [address] Referral ID Status Reason Start Date Expiration Date V isits Requested Visits Authorized [id number] Closed Auto-Generate d Referral 04/02/2024 05/02/2025 1 1 Reason Onset Date Comments Transition Of Care 04/19/2024 TCM followup Reason Comments Vertigo 4 week follow up Reason Comments Urinary Frequency Frequency and burnin g x 1 week Reason Comments Results Urine Cx mixed Reason Comments ER F/U [facility] 05/08/24 Reason Comments Pain Left shoulder/arm Reason Comments Future Appointment Reason Comments Hypertension Reason Comments ER F/U [facility] 07/04/24 Hyperte ntion Reason Comments New Patient Evaluation Disorder labyrint h Specialty Diagnoses / Procedures Referred By Contac t Referred To Contact Neurology Diagnoses Disorder of labyrinth, unspecified laterality Procedures CONSULT TO NEUROLOGY OFFICE/OUTPATIENT NEW HIGH MDM 60 MINUTES Judith Pickard [employer] [address] [phone] Referral ID Status Reason Start Date Expiration Date V isits Requested Visits Authorized [id number] Closed PCP Requested Referral 07/13/2024 07/06/2025 1 1 Reason Comments Insurance Authorization Prior authorizat ion [employer] Reason Comments low blood pressure Specialty Diagnoses / Procedures Referred By Contac t Referred To Contact [facility] Diagnoses Worsening headaches Procedures MRI BRAIN WO/W IVCON MRI BRAIN BRAIN STEM W/O W/CONTRAST MATERIAL Missy Hirsch PA-C [address] [place] [address] [place] [address] Referral ID Status Reason Start Date Expiration Date V isits Requested Visits Authorized [id number] Closed Auto-Generate d Referral 07/27/2024 08/26/2025 1 1 Specialty Diagnoses / Procedures Referred By Contac t Referred To Contact CT IMAGING Diagnoses 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) Procedures CT CHEST W IVCON DIAGNOSTIC COMPUTED TOMOGRAPHY THORAX W/CONTRAST Brendon Coppola, [employer]EC[employer].[place] [address] [place] [address] [place] [address] Referral ID Status Reason Start Date Expiration Date V isits Requested Visits Authorized [id number] Closed Auto-Generate d Referral 04/26/2024 05/26/2025 1 1 Reason Comments Immigration Officer - Other Introduction/ch chuy in treatment Reason [...] César Quintero, DO [address] [place] [address] Phone: tel: fax: [place] [address] Referral ID Status Reason Start Date Expiration Date V isits Requested Visits Authorized [id number] Closed Auto-Generate d Referral 09/03/2024 10/03/2025 1 1 Reason Onset Date Comments Transition Of Care 12/20/2024 Reason Comments Elevated BP- TCM encounter Reason Comments Hospital F/U Reason Onset Date Comments Results 11/02/2024 Reason Onset Date Comments 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/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 Chart review Reason Comments Recheck [...] or prosecute any alcohol or drug abuse patient.[facility] the event this information is protected by the Federal Confidentiality of Alcohol and Drug Abuse Patient Records regulations: The Federal rules restrict any use of the information to criminally investigate or prosecute any alcohol or drug abuse patient.[facility] the event this information is protected by the Federal Confidentiality of Alcohol and Drug Abuse Patient Records regulations: The Federal rules restrict any use of the information to criminally investigate or prosecute any alcohol or drug abuse patient.[facility]In the event this information is protected by the Federal Confidentiality of Alcohol and Drug Abuse Patient Records regulations: The Federal rules restrict any use of the information to criminally investigate or prosecute any alcohol or drug abuse patient.[facility]In the event this information is protected by the Federal Confidentiality of Alcohol and Drug Abuse Patient Records regulations: The Federal rules restrict any use of the information to criminally investigate or prosecute any alcohol or drug abuse patient.[facility]In the event this information is protected by the Federal Confidentiality of Alcohol and Drug Abuse Patient Records regulations: The Federal rules restrict any use of the information to criminally investigate or prosecute any alcohol or drug abuse patient.[facility]In the event this information is protected by the Federal Confidentiality of Alcohol and Drug Abuse Patient Records regulations: The Federal rules restrict any use of the information to criminally investigate or prosecute any alcohol or drug abuse patient.[facility]In the event this information is protected by the Federal Confidentiality of Alcohol and Drug Abuse Patient Records regulations: The Federal rules restrict any use of the information to criminally investigate or prosecute any alcohol or drug abuse patient.[facility]In the event this information is protected by the Federal Confidentiality of Alcohol and Drug Abuse Patient Records regulations: The Federal rules restrict any use of the information to criminally investigate or prosecute any alcohol or drug abuse patient.[facility]In the event this information is protected by the Federal Confidentiality of Alcohol and Drug Abuse Patient Records regulations: The Federal rules restrict any use of the information to criminally investigate or prosecute any alcohol or drug abuse patient.[facility]In the event this information is protected by the Federal Confidentiality of Alcohol and Drug Abuse Patient Records regulations: The Federal rules restrict any use of the information to criminally investigate or prosecute any alcohol or drug abuse patient.[facility] HospitalIn the event this information is protected by the Federal Confidentiality of Alcohol and Drug Abuse Patient Records regulations: The Federal rules restrict any use of the information to criminally investigate or prosecute any alcohol or drug abuse patient.[facility] HospitalIn the event this information is protected by the Federal Confidentiality of Alcohol and Drug Abuse Patient Records regulations: The Federal rules restrict any use of the information to criminally investigate or prosecute any alcohol or drug abuse patient.[facility]In the event this information is protected by the Federal Confidentiality of Alcohol and Drug Abuse Patient Records regulations: The Federal rules restrict any use of the information to criminally investigate or prosecute any alcohol or drug abuse patient.[facility]In the event this information is protected by the Federal Confidentiality of Alcohol and Drug Abuse Patient Records regulations: The Federal rules restrict any use of the information to criminally investigate or prosecute any alcohol or drug abuse patient.[facility] HospitalIn the event this information is protected by the Federal Confidentiality of Alcohol and Drug Abuse Patient Records regulations: The Federal rules restrict any use of the information to criminally investigate or prosecute any alcohol or drug abuse patient.[facility] HospitalIn the event this information is protected by the Federal Confidentiality of Alcohol and Drug Abuse Patient Records regulations: The Federal rules restrict any use of the information to criminally investigate or prosecute any alcohol or drug abuse patient.[facility] HospitalIn the event this information is protected by the Federal Confidentiality of Alcohol and Drug Abuse Patient Records regulations: The Federal rules restrict any use of the information to criminally investigate or prosecute any alcohol or drug abuse patient.[facility] HospitalIn the event this information is protected by the Federal Confidentiality of Alcohol and Drug Abuse Patient Records regulations: The Federal rules restrict any use of the information to criminally investigate or prosecute any alcohol or drug abuse patient.[facility] HospitalIn the event this information is protected by the Federal Confidentiality of Alcohol and Drug Abuse Patient Records regulations: The Federal rules restrict any use of the information to criminally investigate or prosecute any alcohol or drug abuse patient.[facility] HospitalIn the event this information is protected by the Federal Confidentiality of Alcohol and Drug Abuse Patient Records regulations: The Federal rules restrict any use of the information to criminally investigate or prosecute any alcohol or drug abuse patient.[facility] HospitalIn the event this information is protected by the Federal Confidentiality of Alcohol and Drug Abuse Patient Records regulations: The Federal rules restrict any use of the information to criminally investigate or prosecute any alcohol or drug abuse patient.[facility] HospitalIn the event this information is protected by the Federal Confidentiality of Alcohol and Drug Abuse Patient Records regulations: The Federal rules restrict any use of the information to criminally investigate or prosecute any alcohol or drug abuse patient.[facility] HospitalIn the event this information is protected by the Federal Confidentiality of Alcohol and Drug Abuse Patient Records regulations: The Federal rules restrict any use of the information to criminally investigate or prosecute any alcohol or drug abuse patient.[facility] HospitalIn the event this information is protected by the Federal Confidentiality of Alcohol and Drug Abuse Patient Records regulations: The Federal rules restrict any use of the information to criminally investigate or prosecute any alcohol or drug abuse patient.[facility] HospitalIn the event this information is protected by the Federal Confidentiality of Alcohol and Drug Abuse Patient Records regulations: The Federal rules restrict any use of the information to criminally investigate or prosecute any alcohol or drug abuse patient.[facility] HospitalIn the event this information is protected by the Federal Confidentiality of Alcohol and Drug Abuse Patient Records regulations: The Federal rules restrict any use of the information to criminally investigate or prosecute any alcohol or drug abuse patient.[facility] HospitalIn the event this information is protected by the Federal Confidentiality of Alcohol and Drug Abuse Patient Records regulations: The Federal rules restrict any use of the information to criminally investigate or prosecute any alcohol or drug abuse patient.[facility] HospitalIn the event this information is protected by the Federal Confidentiality of Alcohol and Drug Abuse Patient Records regulations: The Federal rules restrict any use of the information to criminally investigate or prosecute any alcohol or drug abuse patient.[facility] HospitalIn the event this information is protected by the Federal Confidentiality of Alcohol and Drug Abuse Patient Records regulations: The Federal rules restrict any use of the information to criminally investigate or prosecute any alcohol or drug abuse patient.[facility] HospitalIn the event this information is protected by the Federal Confidentiality of Alcohol and Drug Abuse Patient Records regulations: The Federal rules restrict any use of the information to criminally investigate or prosecute any alcohol or drug abuse patient.[facility] HospitalIn the event this information is protected by the Federal Confidentiality of Alcohol and Drug Abuse Patient Records regulations: The Federal rules restrict any use of the information to criminally investigate or prosecute any alcohol or drug abuse patient.[facility] HospitalIn the event this information is protected by the Federal Confidentiality of Alcohol and Drug Abuse Patient Records regulations: The Federal rules restrict any use of the information to criminally investigate or prosecute any alcohol or drug abuse patient.[facility] HospitalIn the event this information is protected by the Federal Confidentiality of Alcohol and Drug Abuse Patient Records regulations: The Federal rules restrict any use of the information to criminally investigate or prosecute any alcohol or drug abuse patient.[facility] HospitalIn the event this information is protected by the Federal Confidentiality of Alcohol and Drug Abuse Patient Records regulations: The Federal rules restrict any use of the information to criminally investigate or prosecute any alcohol or drug abuse patient.[facility] HospitalIn the event this information is protected by the Federal Confidentiality of Alcohol and Drug Abuse Patient Records regulations: The Federal rules restrict any use of the information to criminally investigate or prosecute any alcohol or drug abuse patient.[facility] HospitalIn the event this information is protected by the Federal Confidentiality of Alcohol and Drug Abuse Patient Records regulations: The Federal rules restrict any use of the information to criminally investigate or prosecute any alcohol or drug abuse patient.[facility] HospitalIn the event this information is protected by the Federal Confidentiality of Alcohol and Drug Abuse Patient Records regulations: The Federal rules restrict any use of the information to criminally investigate or prosecute any alcohol or drug abuse patient.[facility] HospitalIn the event this information is protected by [...] or prosecute any alcohol or drug abuse patient.[facility] HospitalIn the event this information is protected by the Federal Confidentiality of Alcohol and Drug Abuse Patient Records regulations: The Federal rules restrict any use of the information to criminally investigate or prosecute any alcohol or drug abuse patient.[facility] HospitalIn the event this information is protected by the Federal Confidentiality of Alcohol and Drug Abuse Patient Records regulations: The Federal rules restrict any use of the information to criminally investigate or prosecute any alcohol or drug abuse patient.[facility] HospitalIn the event this information is protected by the Federal Confidentiality of Alcohol and Drug Abuse Patient Records regulations: The Federal rules restrict any use of the information to criminally investigate or prosecute any alcohol or drug abuse patient.[facility] HospitalIn the event this information is protected by the Federal Confidentiality of Alcohol and Drug Abuse Patient Records regulations: The Federal rules restrict any use of the information to criminally investigate or prosecute any alcohol or drug abuse patient.[facility] HospitalIn the event this information is protected by the Federal Confidentiality of Alcohol and Drug Abuse Patient Records regulations: The Federal rules restrict any use of the information to criminally investigate or prosecute any alcohol or drug abuse patient.[facility] HospitalIn the event this information is protected by the Federal Confidentiality of Alcohol and Drug Abuse Patient Records regulations: The Federal rules restrict any use of the information to criminally investigate or prosecute any alcohol or drug abuse patient.[facility] HospitalIn the event this information is protected by the Federal Confidentiality of Alcohol and Drug Abuse Patient Records regulations: The Federal rules restrict any use of the information to criminally investigate or prosecute any alcohol or drug abuse patient.[facility] HospitalIn the event this information is protected by the Federal Confidentiality of Alcohol and Drug Abuse Patient Records regulations: The Federal rules restrict any use of the information to criminally investigate or prosecute any alcohol or drug abuse patient.[facility] HospitalIn the event this information is protected by the Federal Confidentiality of Alcohol and Drug Abuse Patient Records regulations: The Federal rules restrict any use of the information to criminally investigate or prosecute any alcohol or drug abuse patient.[facility] HospitalIn the event this information is protected by the Federal Confidentiality of Alcohol and Drug Abuse Patient Records regulations: The Federal rules restrict any use of the information to criminally investigate or prosecute any alcohol or drug abuse patient.[facility] HospitalIn the event this information is protected by the Federal Confidentiality of Alcohol and Drug Abuse Patient Records regulations: The Federal rules restrict any use of the information to criminally investigate or prosecute any alcohol or drug abuse patient.[facility] HospitalIn the event this information is protected by the Federal Confidentiality of Alcohol and Drug Abuse Patient Records regulations: The Federal rules restrict any use of the information to criminally investigate or prosecute any alcohol or drug abuse patient.[facility] HospitalIn the event this information is protected by the Federal Confidentiality of Alcohol and Drug Abuse Patient Records regulations: The Federal rules restrict any use of the information to criminally investigate or prosecute any alcohol or drug abuse patient.[facility] HospitalIn the event this information is protected by the Federal Confidentiality of Alcohol and Drug Abuse Patient Records regulations: The Federal rules restrict any use of the information to criminally investigate or prosecute any alcohol or drug abuse patient.[facility] HospitalIn the event this information is protected by the Federal Confidentiality of Alcohol and Drug Abuse Patient Records regulations: The Federal rules restrict any use of the information to criminally investigate or prosecute any alcohol or drug abuse patient.[facility] HospitalIn the event this information is protected by the Federal Confidentiality of Alcohol and Drug Abuse Patient Records regulations: The Federal rules restrict any use of the information to criminally investigate or prosecute any alcohol or drug abuse patient.[facility] HospitalIn the event this information is protected by the Federal Confidentiality of Alcohol and Drug Abuse Patient Records regulations: The Federal rules restrict any use of the information to criminally investigate or prosecute any alcohol or drug abuse patient.[facility] HospitalIn the event this information is protected by the Federal Confidentiality of Alcohol and Drug Abuse Patient Records regulations: The Federal rules restrict any use of the information to criminally investigate or prosecute any alcohol or drug abuse patient.[facility] HospitalIn the event this information is protected by the Federal Confidentiality of Alcohol and Drug Abuse Patient Records regulations: The Federal rules restrict any use of the information to criminally investigate or prosecute any alcohol or drug abuse patient.[facility] HospitalIn the event this information is protected by the Federal Confidentiality of Alcohol and Drug Abuse Patient Records regulations: The Federal rules restrict any use of the information to criminally investigate or prosecute any alcohol or drug abuse patient.[facility] HospitalIn the event this information is protected by the Federal Confidentiality of Alcohol and Drug Abuse Patient Records regulations: The Federal rules restrict any use of the information to criminally investigate or prosecute any alcohol or drug abuse patient.[facility] HospitalIn the event this information is protected by the Federal Confidentiality of Alcohol and Drug Abuse Patient Records regulations: The Federal rules restrict any use of the information to criminally investigate or prosecute any alcohol or drug abuse patient.[facility] HospitalIn the event this information is protected by the Federal Confidentiality of Alcohol and Drug Abuse Patient Records regulations: The Federal rules restrict any use of the information to criminally investigate or prosecute any alcohol or drug abuse patient.[facility] HospitalIn the event this information is protected by the Federal Confidentiality of Alcohol and Drug Abuse Patient Records regulations: The Federal rules restrict any use of the information to criminally investigate or prosecute any alcohol or drug abuse patient.[facility] HospitalIn the event this information is protected by the Federal Confidentiality of Alcohol and Drug Abuse Patient Records regulations: The Federal rules restrict any use of the information to criminally investigate or prosecute any alcohol or drug abuse patient.[facility] HospitalIn the event this information is protected by the Federal Confidentiality of Alcohol and Drug Abuse Patient Records regulations: The Federal rules restrict any use of the information to criminally investigate or prosecute any alcohol or drug abuse patient.[facility] HospitalIn the event this information is protected by the Federal Confidentiality of Alcohol and Drug Abuse Patient Records regulations: The Federal rules restrict any use of the information to criminally investigate or prosecute any alcohol or drug abuse patient.[facility] HospitalIn the event this information is protected by the Federal Confidentiality of Alcohol and Drug Abuse Patient Records regulations: The Federal rules restrict any use of the information to criminally investigate or prosecute any alcohol or drug abuse patient.[facility] HospitalIn the event this information is protected by the Federal Confidentiality of Alcohol and Drug Abuse Patient Records regulations: The Federal rules restrict any use of the information to criminally investigate or prosecute any alcohol or drug abuse patient.[facility] HospitalIn the event this information is protected by the Federal Confidentiality of Alcohol and Drug Abuse Patient Records regulations: The Federal rules restrict any use of the information to criminally investigate or prosecute any alcohol or drug abuse patient.[facility] HospitalIn the event this information is protected by the Federal Confidentiality of Alcohol and Drug Abuse Patient Records regulations: The Federal rules restrict any use of the information to criminally investigate or prosecute any alcohol or drug abuse patient.[facility] HospitalIn the event this information is protected by the Federal Confidentiality of Alcohol and Drug Abuse Patient Records regulations: The Federal rules restrict any use of the information to criminally investigate or prosecute any alcohol or drug abuse patient.[facility] HospitalIn the event this information is protected by the Federal Confidentiality of Alcohol and Drug Abuse Patient Records regulations: The Federal rules restrict any use of the information to criminally investigate or prosecute any alcohol or drug abuse patient.[facility] HospitalIn the event this information is protected by the Federal Confidentiality of Alcohol and Drug Abuse Patient Records regulations: The Federal rules restrict any use of the information to criminally investigate or prosecute any alcohol or drug abuse patient.[facility] HospitalIn the event this information is protected by the Federal Confidentiality of Alcohol and Drug Abuse Patient Records regulations: The Federal rules restrict any use of the information to criminally investigate or prosecute any alcohol or drug abuse patient.[facility] HospitalIn the event this information is protected by the Federal Confidentiality of Alcohol and Drug Abuse Patient Records regulations: The Federal rules restrict any use of the information to criminally investigate or prosecute any alcohol or drug abuse patient.[facility] HospitalIn the event this information is protected by the Federal Confidentiality of Alcohol and Drug Abuse Patient Records regulations: The Federal rules restrict any use of the information to criminally investigate or prosecute any alcohol or drug abuse patient.[facility] HospitalIn the event this information is protected by the Federal Confidentiality of Alcohol and Drug Abuse Patient Records regulations: The Federal rules restrict any use of the information to criminally investigate or prosecute any alcohol or drug abuse patient.[facility] HospitalIn the event this information is protected by the Federal Confidentiality of Alcohol and Drug Abuse Patient Records regulations: The Federal rules restrict any use of the information to criminally investigate or prosecute any alcohol or drug abuse patient.[facility] HospitalIn the event this information is protected by the Federal Confidentiality of Alcohol and Drug Abuse Patient Records regulations: The Federal rules restrict any use of the information to criminally investigate or prosecute any alcohol or drug abuse patient.[facility] HospitalIn the event this information is protected by the Federal Confidentiality of Alcohol and Drug Abuse Patient Records regulations: The Federal rules restrict any use of the information to criminally investigate or prosecute any alcohol or drug abuse patient.[facility] HospitalIn the event this information is protected by the Federal Confidentiality of Alcohol and Drug Abuse Patient Records regulations: The Federal rules restrict any use of the information to criminally investigate or prosecute any alcohol or drug abuse patient.[facility] HospitalIn the event this information is protected by the Federal Confidentiality of Alcohol and Drug Abuse Patient Records regulations: The Federal rules restrict any use of the information to criminally investigate or prosecute any alcohol or drug abuse patient.[facility] HospitalIn the event this information is protected by the Federal Confidentiality of Alcohol and Drug Abuse Patient Records regulations: The Federal rules restrict any use of the information to criminally investigate or prosecute any alcohol or drug abuse patient.[facility] HospitalIn the event this information is protected by the Federal Confidentiality of Alcohol and Drug Abuse Patient Records regulations: The Federal rules restrict any use of the information to criminally investigate or prosecute any alcohol or drug abuse patient.[facility] HospitalIn the event this information is protected by the Federal Confidentiality of Alcohol and Drug Abuse Patient Records regulations: The Federal rules restrict any use of the information to criminally investigate or prosecute any alcohol or drug abuse patient.[facility] HospitalIn the event this information is protected by the Federal Confidentiality of Alcohol and Drug Abuse Patient Records regulations: The Federal rules restrict any use of the information to criminally investigate or prosecute any alcohol or drug abuse patient.[facility] HospitalIn the event this information is protected by the Federal Confidentiality of Alcohol and Drug Abuse Patient Records regulations: The Federal rules restrict any use of the information to criminally investigate or prosecute any alcohol or drug abuse patient.[facility] HospitalIn the event this information is protected by [...] or prosecute any alcohol or drug abuse patient.[facility] HospitalIn the event this information is protected by the Federal Confidentiality of Alcohol and Drug Abuse Patient Records regulations: The Federal rules restrict any use of the information to criminally investigate or prosecute any alcohol or drug abuse patient.[facility] HospitalIn the event this information is protected by the Federal Confidentiality of Alcohol and Drug Abuse Patient Records regulations: The Federal rules restrict any use of the information to criminally investigate or prosecute any alcohol or drug abuse patient.[facility] HospitalIn the event this information is protected by the Federal Confidentiality of Alcohol and Drug Abuse Patient Records regulations: The Federal rules restrict any use of the information to criminally investigate or prosecute any alcohol or drug abuse patient.[facility] HospitalIn the event this information is protected by the Federal Confidentiality of Alcohol and Drug Abuse Patient Records regulations: The Federal rules restrict any use of the information to criminally investigate or prosecute any alcohol or drug abuse patient.[facility] HospitalIn the event this information is protected by the Federal Confidentiality of Alcohol and Drug Abuse Patient Records regulations: The Federal rules restrict any use of the information to criminally investigate or prosecute any alcohol or drug abuse patient.[facility] HospitalIn the event this information is protected by the Federal Confidentiality of Alcohol and Drug Abuse Patient Records regulations: The Federal rules restrict any use of the information to criminally investigate or prosecute any alcohol or drug abuse patient.[facility] HospitalIn the event this information is protected by the Federal Confidentiality of Alcohol and Drug Abuse Patient Records regulations: The Federal rules restrict any use of the information to criminally investigate or prosecute any alcohol or drug abuse patient.[facility] HospitalIn the event this information is protected by the Federal Confidentiality of Alcohol and Drug Abuse Patient Records regulations: The Federal rules restrict any use of the information to criminally investigate or prosecute any alcohol or drug abuse patient.[facility] HospitalIn the event this information is protected by the Federal Confidentiality of Alcohol and Drug Abuse Patient Records regulations: The Federal rules restrict any use of the information to criminally investigate or prosecute any alcohol or drug abuse patient.[facility] HospitalIn the event this information is protected by the Federal Confidentiality of Alcohol and Drug Abuse Patient Records regulations: The Federal rules restrict any use of the information to criminally investigate or prosecute any alcohol or drug abuse patient.[facility] HospitalIn the event this information is protected by the Federal Confidentiality of Alcohol and Drug Abuse Patient Records regulations: The Federal rules restrict any use of the information to criminally investigate or prosecute any alcohol or drug abuse patient.[facility] HospitalIn the event this information is protected by the Federal Confidentiality of Alcohol and Drug Abuse Patient Records regulations: The Federal rules restrict any use of the information to criminally investigate or prosecute any alcohol or drug abuse patient.[facility] HospitalIn the event this information is protected by the Federal Confidentiality of Alcohol and Drug Abuse Patient Records regulations: The Federal rules restrict any use of the information to criminally investigate or prosecute any alcohol or drug abuse patient.[facility] HospitalIn the event this information is protected by the Federal Confidentiality of Alcohol and Drug Abuse Patient Records regulations: The Federal rules restrict any use of the information to criminally investigate or prosecute any alcohol or drug abuse patient.[facility] HospitalIn the event this information is protected by the Federal Confidentiality of Alcohol and Drug Abuse Patient Records regulations: The Federal rules restrict any use of the information to criminally investigate or prosecute any alcohol or drug abuse patient.[facility] HospitalIn the event this information is protected by the Federal Confidentiality of Alcohol and Drug Abuse Patient Records regulations: The Federal rules restrict any use of the information to criminally investigate or prosecute any alcohol or drug abuse patient.[facility] HospitalIn the event this information is protected by the Federal Confidentiality of Alcohol and Drug Abuse Patient Records regulations: The Federal rules restrict any use of the information to criminally investigate or prosecute any alcohol or drug abuse patient.[facility] HospitalIn the event this information is protected by the Federal Confidentiality of Alcohol and Drug Abuse Patient Records regulations: The Federal rules restrict any use of the information to criminally investigate or prosecute any alcohol or drug abuse patient.[facility] HospitalIn the event this information is protected by the Federal Confidentiality of Alcohol and Drug Abuse Patient Records regulations: The Federal rules restrict any use of the information to criminally investigate or prosecute any alcohol or drug abuse patient.[facility] HospitalIn the event this information is protected by the Federal Confidentiality of Alcohol and Drug Abuse Patient Records regulations: The Federal rules restrict any use of the information to criminally investigate or prosecute any alcohol or drug abuse patient.[facility] HospitalIn the event this information is protected by the Federal Confidentiality of Alcohol and Drug Abuse Patient Records regulations: The Federal rules restrict any use of the information to criminally investigate or prosecute any alcohol or drug abuse patient.[facility] HospitalIn the event this information is protected by the Federal Confidentiality of Alcohol and Drug Abuse Patient Records regulations: The Federal rules restrict any use of the information to criminally investigate or prosecute any alcohol or drug abuse patient.[facility] HospitalIn the event this information is protected by the Federal Confidentiality of Alcohol and Drug Abuse Patient Records regulations: The Federal rules restrict any use of the information to criminally investigate or prosecute any alcohol or drug abuse patient.[facility] HospitalIn the event this information is protected by the Federal Confidentiality of Alcohol and Drug Abuse Patient Records regulations: The Federal rules restrict any use of the information to criminally investigate or prosecute any alcohol or drug abuse patient.[facility] HospitalIn the event this information is protected by the Federal Confidentiality of Alcohol and Drug Abuse Patient Records regulations: The Federal rules restrict any use of the information to criminally investigate or prosecute any alcohol or drug abuse patient.[facility] HospitalIn the event this information is protected by the Federal Confidentiality of Alcohol and Drug Abuse Patient Records regulations: The Federal rules restrict any use of the information to criminally investigate or prosecute any alcohol or drug abuse patient.[facility] HospitalIn the event this information is protected by the Federal Confidentiality of Alcohol and Drug Abuse Patient Records regulations: The Federal rules restrict any use of the information to criminally investigate or prosecute any alcohol or drug abuse patient.[facility] HospitalIn the event this information is protected by the Federal Confidentiality of Alcohol and Drug Abuse Patient Records regulations: The Federal rules restrict any use of the information to criminally investigate or prosecute any alcohol or drug abuse patient.[facility] HospitalIn the event this information is protected by the Federal Confidentiality of Alcohol and Drug Abuse Patient Records regulations: The Federal rules restrict any use of the information to criminally investigate or prosecute any alcohol or drug abuse patient.[facility] HospitalIn the event this information is protected by the Federal Confidentiality of Alcohol and Drug Abuse Patient Records regulations: The Federal rules restrict any use of the information to criminally investigate or prosecute any alcohol or drug abuse patient.[facility] HospitalIn the event this information is protected by the Federal Confidentiality of Alcohol and Drug Abuse Patient Records regulations: The Federal rules restrict any use of the information to criminally investigate or prosecute any alcohol or drug abuse patient.[facility] HospitalIn the event this information is protected by the Federal Confidentiality of Alcohol and Drug Abuse Patient Records regulations: The Federal rules restrict any use of the information to criminally investigate or prosecute any alcohol or drug abuse patient.[facility] HospitalIn the event this information is protected by the Federal Confidentiality of Alcohol and Drug Abuse Patient Records regulations: The Federal rules restrict any use of the information to criminally investigate or prosecute any alcohol or drug abuse patient.[facility] HospitalIn the event this information is protected by the Federal Confidentiality of Alcohol and Drug Abuse Patient Records regulations: The Federal rules restrict any use of the information to criminally investigate or prosecute any alcohol or drug abuse patient.[facility] HospitalIn the event this information is protected by the Federal Confidentiality of Alcohol and Drug Abuse Patient Records regulations: The Federal rules restrict any use of the information to criminally investigate or prosecute any alcohol or drug abuse patient.[facility] HospitalIn the event this information is protected by the Federal Confidentiality of Alcohol and Drug Abuse Patient Records regulations: The Federal rules restrict any use of the information to criminally investigate or prosecute any alcohol or drug abuse patient.[facility] HospitalIn the event this information is protected by the Federal Confidentiality of Alcohol and Drug Abuse Patient Records regulations: The Federal rules restrict any use of the information to criminally investigate or prosecute any alcohol or drug abuse patient.[facility] HospitalIn the event this information is protected by the Federal Confidentiality of Alcohol and Drug Abuse Patient Records regulations: The Federal rules restrict any use of the information to criminally investigate or prosecute any alcohol or drug abuse patient.[facility] HospitalIn the event this information is protected by the Federal Confidentiality of Alcohol and Drug Abuse Patient Records regulations: The Federal rules restrict any use of the information to criminally investigate or prosecute any alcohol or drug abuse patient.[facility] HospitalIn the event this information is protected by the Federal Confidentiality of Alcohol and Drug Abuse Patient Records regulations: The Federal rules restrict any use of the information to criminally investigate or prosecute any alcohol or drug abuse patient.[facility] HospitalIn the event this information is protected by the Federal Confidentiality of Alcohol and Drug Abuse Patient Records regulations: The Federal rules restrict any use of the information to criminally investigate or prosecute any alcohol or drug abuse patient.[facility] HospitalIn the event this information is protected by the Federal Confidentiality of Alcohol and Drug Abuse Patient Records regulations: The Federal rules restrict any use of the information to criminally investigate or prosecute any alcohol or drug abuse patient.[facility] HospitalIn the event this information is protected by the Federal Confidentiality of Alcohol and Drug Abuse Patient Records regulations: The Federal rules restrict any use of the information to criminally investigate or prosecute any alcohol or drug abuse patient.[facility] HospitalIn the event this information is protected by the Federal Confidentiality of Alcohol and Drug Abuse Patient Records regulations: The Federal rules restrict any use of the information to criminally investigate or prosecute any alcohol or drug abuse patient.[facility] HospitalIn the event this information is protected by the Federal Confidentiality of Alcohol and Drug Abuse Patient Records regulations: The Federal rules restrict any use of the information to criminally investigate or prosecute any alcohol or drug abuse patient.[facility] HospitalIn the event this information is protected by the Federal Confidentiality of Alcohol and Drug Abuse Patient Records regulations: The Federal rules restrict any use of the information to criminally investigate or prosecute any alcohol or drug abuse patient.[facility] HospitalIn the event this information is protected by the Federal Confidentiality of Alcohol and Drug Abuse Patient Records regulations: The Federal rules restrict any use of the information to criminally investigate or prosecute any alcohol or drug abuse patient.[facility] HospitalIn the event this information is protected by the Federal Confidentiality of Alcohol and Drug Abuse Patient Records regulations: The Federal rules restrict any use of the information to criminally investigate or prosecute any alcohol or drug abuse patient.[facility] HospitalIn the event this information is protected by [...] or prosecute any alcohol or drug abuse patient.[facility] HospitalIn the event this information is protected by the Federal Confidentiality of Alcohol and Drug Abuse Patient Records regulations: The Federal rules restrict any use of the information to criminally investigate or prosecute any alcohol or drug abuse patient.[facility] HospitalIn the event this information is protected by the Federal Confidentiality of Alcohol and Drug Abuse Patient Records regulations: The Federal rules restrict any use of the information to criminally investigate or prosecute any alcohol or drug abuse patient.[facility] HospitalIn the event this information is protected by the Federal Confidentiality of Alcohol and Drug Abuse Patient Records regulations: The Federal rules restrict any use of the information to criminally investigate or prosecute any alcohol or drug abuse patient.[facility] HospitalIn the event this information is protected by the Federal Confidentiality of Alcohol and Drug Abuse Patient Records regulations: The Federal rules restrict any use of the information to criminally investigate or prosecute any alcohol or drug abuse patient.[facility] HospitalIn the event this information is protected by the Federal Confidentiality of Alcohol and Drug Abuse Patient Records regulations: The Federal rules restrict any use of the information to criminally investigate or prosecute any alcohol or drug abuse patient.[facility] HospitalIn the event this information is protected by the Federal Confidentiality of Alcohol and Drug Abuse Patient Records regulations: The Federal rules restrict any use of the information to criminally investigate or prosecute any alcohol or drug abuse patient.[facility] HospitalIn the event this information is protected by the Federal Confidentiality of Alcohol and Drug Abuse Patient Records regulations: The Federal rules restrict any use of the information to criminally investigate or prosecute any alcohol or drug abuse patient.[facility] HospitalIn the event this information is protected by the Federal Confidentiality of Alcohol and Drug Abuse Patient Records regulations: The Federal rules restrict any use of the information to criminally investigate or prosecute any alcohol or drug abuse patient.[facility] HospitalIn the event this information is protected by the Federal Confidentiality of Alcohol and Drug Abuse Patient Records regulations: The Federal rules restrict any use of the information to criminally investigate or prosecute any alcohol or drug abuse patient.[facility] HospitalIn the event this information is protected by the Federal Confidentiality of Alcohol and Drug Abuse Patient Records regulations: The Federal rules restrict any use of the information to criminally investigate or prosecute any alcohol or drug abuse patient.[facility] HospitalIn the event this information is protected by the Federal Confidentiality of Alcohol and Drug Abuse Patient Records regulations: The Federal rules restrict any use of the information to criminally investigate or prosecute any alcohol or drug abuse patient.[facility] HospitalIn the event this information is protected by the Federal Confidentiality of Alcohol and Drug Abuse Patient Records regulations: The Federal rules restrict any use of the information to criminally investigate or prosecute any alcohol or drug abuse patient.[facility] HospitalIn the event this information is protected by the Federal Confidentiality of Alcohol and Drug Abuse Patient Records regulations: The Federal rules restrict any use of the information to criminally investigate or prosecute any alcohol or drug abuse patient.[facility] HospitalIn the event this information is protected by the Federal Confidentiality of Alcohol and Drug Abuse Patient Records regulations: The Federal rules restrict any use of the information to criminally investigate or prosecute any alcohol or drug abuse patient.[facility] HospitalIn the event this information is protected by the Federal Confidentiality of Alcohol and Drug Abuse Patient Records regulations: The Federal rules restrict any use of the information to criminally investigate or prosecute any alcohol or drug abuse patient.[facility] HospitalIn the event this information is protected by the Federal Confidentiality of Alcohol and Drug Abuse Patient Records regulations: The Federal rules restrict any use of the information to criminally investigate or prosecute any alcohol or drug abuse patient.[facility] HospitalIn the event this information is protected by the Federal Confidentiality of Alcohol and Drug Abuse Patient Records regulations: The Federal rules restrict any use of the information to criminally investigate or prosecute any alcohol or drug abuse patient.[facility] HospitalIn the event this information is protected by the Federal Confidentiality of Alcohol and Drug Abuse Patient Records regulations: The Federal rules restrict any use of the information to criminally investigate or prosecute any alcohol or drug abuse patient.[facility] HospitalIn the event this information is protected by the Federal Confidentiality of Alcohol and Drug Abuse Patient Records regulations: The Federal rules restrict any use of the information to criminally investigate or prosecute any alcohol or drug abuse patient.[facility] HospitalIn the event this information is protected by the Federal Confidentiality of Alcohol and Drug Abuse Patient Records regulations: The Federal rules restrict any use of the information to criminally investigate or prosecute any alcohol or drug abuse patient.[facility] HospitalIn the event this information is protected by the Federal Confidentiality of Alcohol and Drug Abuse Patient Records regulations: The Federal rules restrict any use of the information to criminally investigate or prosecute any alcohol or drug abuse patient.[facility] HospitalIn the event this information is protected by the Federal Confidentiality of Alcohol and Drug Abuse Patient Records regulations: The Federal rules restrict any use of the information to criminally investigate or prosecute any alcohol or drug abuse patient.[facility] HospitalIn the event this information is protected by the Federal Confidentiality of Alcohol and Drug Abuse Patient Records regulations: The Federal rules restrict any use of the information to criminally investigate or prosecute any alcohol or drug abuse patient.[facility] HospitalIn the event this information is protected by the Federal Confidentiality of Alcohol and Drug Abuse Patient Records regulations: The Federal rules restrict any use of the information to criminally investigate or prosecute any alcohol or drug abuse patient.[facility] HospitalIn the event this information is protected by the Federal Confidentiality of Alcohol and Drug Abuse Patient Records regulations: The Federal rules restrict any use of the information to criminally investigate or prosecute any alcohol or drug abuse patient.[facility] HospitalIn the event this information is protected by the Federal Confidentiality of Alcohol and Drug Abuse Patient Records regulations: The Federal rules restrict any use of the information to criminally investigate or prosecute any alcohol or drug abuse patient.[facility] HospitalIn the event this information is protected by the Federal Confidentiality of Alcohol and Drug Abuse Patient Records regulations: The Federal rules restrict any use of the information to criminally investigate or prosecute any alcohol or drug abuse patient.[facility] HospitalIn the event this information is protected by the Federal Confidentiality of Alcohol and Drug Abuse Patient Records regulations: The Federal rules restrict any use of the information to criminally investigate or prosecute any alcohol or drug abuse patient.[facility] HospitalIn the event this information is protected by the Federal Confidentiality of Alcohol and Drug Abuse Patient Records regulations: The Federal rules restrict any use of the information to criminally investigate or prosecute any alcohol or drug abuse patient.[facility] HospitalIn the event this information is protected by the Federal Confidentiality of Alcohol and Drug Abuse Patient Records regulations: The Federal rules restrict any use of the information to criminally investigate or prosecute any alcohol or drug abuse patient.[facility] HospitalIn the event this information is protected by the Federal Confidentiality of Alcohol and Drug Abuse Patient Records regulations: The Federal rules restrict any use of the information to criminally investigate or prosecute any alcohol or drug abuse patient.[facility] HospitalIn the event this information is protected by the Federal Confidentiality of Alcohol and Drug Abuse Patient Records regulations: The Federal rules restrict any use of the information to criminally investigate or prosecute any alcohol or drug abuse patient.[facility] HospitalIn the event this information is protected by the Federal Confidentiality of Alcohol and Drug Abuse Patient Records regulations: The Federal rules restrict any use of the information to criminally investigate or prosecute any alcohol or drug abuse patient.[facility] HospitalIn the event this information is protected by the Federal Confidentiality of Alcohol and Drug Abuse Patient Records regulations: The Federal rules restrict any use of the information to criminally investigate or prosecute any alcohol or drug abuse patient.[facility] HospitalIn the event this information is protected by the Federal Confidentiality of Alcohol and Drug Abuse Patient Records regulations: The Federal rules restrict any use of the information to criminally investigate or prosecute any alcohol or drug abuse patient.[facility] HospitalIn the event this information is protected by the Federal Confidentiality of Alcohol and Drug Abuse Patient Records regulations: The Federal rules restrict any use of the information to criminally investigate or prosecute any alcohol or drug abuse patient.[facility] HospitalIn the event this information is protected by the Federal Confidentiality of Alcohol and Drug Abuse Patient Records regulations: The Federal rules restrict any use of the information to criminally investigate or prosecute any alcohol or drug abuse patient.[facility] HospitalIn the event this information is protected by the Federal Confidentiality of Alcohol and Drug Abuse Patient Records regulations: The Federal rules restrict any use of the information to criminally investigate or prosecute any alcohol or drug abuse patient.[facility] HospitalIn the event this information is protected by the Federal Confidentiality of Alcohol and Drug Abuse Patient Records regulations: The Federal rules restrict any use of the information to criminally investigate or prosecute any alcohol or drug abuse patient.[facility] HospitalIn the event this information is protected by the Federal Confidentiality of Alcohol and Drug Abuse Patient Records regulations: The Federal rules restrict any use of the information to criminally investigate or prosecute any alcohol or drug abuse patient.[facility] HospitalIn the event this information is protected by the Federal Confidentiality of Alcohol and Drug Abuse Patient Records regulations: The Federal rules restrict any use of the information to criminally investigate or prosecute any alcohol or drug abuse patient.[facility] HospitalIn the event this information is protected by the Federal Confidentiality of Alcohol and Drug Abuse Patient Records regulations: The Federal rules restrict any use of the information to criminally investigate or prosecute any alcohol or drug abuse patient.[facility] HospitalIn the event this information is protected by the Federal Confidentiality of Alcohol and Drug Abuse Patient Records regulations: The Federal rules restrict any use of the information to criminally investigate or prosecute any alcohol or drug abuse patient.[facility] HospitalIn the event this information is protected by the Federal Confidentiality of Alcohol and Drug Abuse Patient Records regulations: The Federal rules restrict any use of the information to criminally investigate or prosecute any alcohol or drug abuse patient.[facility] HospitalIn the event this information is protected by the Federal Confidentiality of Alcohol and Drug Abuse Patient Records regulations: The Federal rules restrict any use of the information to criminally investigate or prosecute any alcohol or drug abuse patient.[facility] HospitalIn the event this information is protected by the Federal Confidentiality of Alcohol and Drug Abuse Patient Records regulations: The Federal rules restrict any use of the information to criminally investigate or prosecute any alcohol or drug abuse patient.[facility] HospitalIn the event this information is protected by the Federal Confidentiality of Alcohol and Drug Abuse Patient Records regulations: The Federal rules restrict any use of the information to criminally investigate or prosecute any alcohol or drug abuse patient.[facility] HospitalIn the event this information is protected by the Federal Confidentiality of Alcohol and Drug Abuse Patient Records regulations: The Federal rules restrict any use of the information to criminally investigate or prosecute any alcohol or drug abuse patient.[facility] HospitalIn the event this information is protected by [...] or prosecute any alcohol or drug abuse patient.[facility] HospitalIn the event this information is protected by the Federal Confidentiality of Alcohol and Drug Abuse Patient Records regulations: The Federal rules restrict any use of the information to criminally investigate or prosecute any alcohol or drug abuse patient.[facility] HospitalIn the event this information is protected by the Federal Confidentiality of Alcohol and Drug Abuse Patient Records regulations: The Federal rules restrict any use of the information to criminally investigate or prosecute any alcohol or drug abuse patient.[facility] HospitalIn the event this information is protected by the Federal Confidentiality of Alcohol and Drug Abuse Patient Records regulations: The Federal rules restrict any use of the information to criminally investigate or prosecute any alcohol or drug abuse patient.[facility] HospitalIn the event this information is protected by the Federal Confidentiality of Alcohol and Drug Abuse Patient Records regulations: The Federal rules restrict any use of the information to criminally investigate or prosecute any alcohol or drug abuse patient.[facility] HospitalIn the event this information is protected by the Federal Confidentiality of Alcohol and Drug Abuse Patient Records regulations: The Federal rules restrict any use of the information to criminally investigate or prosecute any alcohol or drug abuse patient.[facility] HospitalIn the event this information is protected by the Federal Confidentiality of Alcohol and Drug Abuse Patient Records regulations: The Federal rules restrict any use of the information to criminally investigate or prosecute any alcohol or drug abuse patient.[facility] HospitalIn the event this information is protected by the Federal Confidentiality of Alcohol and Drug Abuse Patient Records regulations: The Federal rules restrict any use of the information to criminally investigate or prosecute any alcohol or drug abuse patient.[facility] HospitalIn the event this information is protected by the Federal Confidentiality of Alcohol and Drug Abuse Patient Records regulations: The Federal rules restrict any use of the information to criminally investigate or prosecute any alcohol or drug abuse patient.[facility] HospitalIn the event this information is protected by the Federal Confidentiality of Alcohol and Drug Abuse Patient Records regulations: The Federal rules restrict any use of the information to criminally investigate or prosecute any alcohol or drug abuse patient.[facility] HospitalIn the event this information is protected by the Federal Confidentiality of Alcohol and Drug Abuse Patient Records regulations: The Federal rules restrict any use of the information to criminally investigate or prosecute any alcohol or drug abuse patient.[facility] HospitalIn the event this information is protected by the Federal Confidentiality of Alcohol and Drug Abuse Patient Records regulations: The Federal rules restrict any use of the information to criminally investigate or prosecute any alcohol or drug abuse patient.[facility] HospitalIn the event this information is protected by the Federal Confidentiality of Alcohol and Drug Abuse Patient Records regulations: The Federal rules restrict any use of the information to criminally investigate or prosecute any alcohol or drug abuse patient.[facility] HospitalIn the event this information is protected by the Federal Confidentiality of Alcohol and Drug Abuse Patient Records regulations: The Federal rules restrict any use of the information to criminally investigate or prosecute any alcohol or drug abuse patient.[facility] HospitalIn the event this information is protected by the Federal Confidentiality of Alcohol and Drug Abuse Patient Records regulations: The Federal rules restrict any use of the information to criminally investigate or prosecute any alcohol or drug abuse patient.[facility] HospitalIn the event this information is protected by the Federal Confidentiality of Alcohol and Drug Abuse Patient Records regulations: The Federal rules restrict any use of the information to criminally investigate or prosecute any alcohol or drug abuse patient.[facility] HospitalIn the event this information is protected by the Federal Confidentiality of Alcohol and Drug Abuse Patient Records regulations: The Federal rules restrict any use of the information to criminally investigate or prosecute any alcohol or drug abuse patient.[facility] HospitalIn the event this information is protected by the Federal Confidentiality of Alcohol and Drug Abuse Patient Records regulations: The Federal rules restrict any use of the information to criminally investigate or prosecute any alcohol or drug abuse patient.[facility] Care Teams (unrecognized sec tion and content) Auto Heater Mechanic Relationship Specialty Start Date End Date Sylvia Lizama MD [address] [place], [place] [id number] PCP - General Family Practice 12/02/18 [place] [id number] [place] [address] Referring Physical Medicine and Rehab 06/15/21 Auto Heater Mechanic Relationship Specialty Start Date End Date Sylvia Lizama MD [address] [place], [place] [id number] PCP - General Family Practice 12/02/18 [place] [address] [place] [address] Referring Physical Medicine and Rehab 06/15/21 Auto Heater Mechanic Relationship Specialty Start Date End Date Sylvia Lizama MD [address] [place] [address] PCP - General Family Practice 12/02/18 Rene Do, [place] [id number] [place] [address] Referring Physical Medicine and Rehab 06/15/21 Auto Heater Mechanic Relationship Specialty Start Date End Date Sylvia Lizama MD [address] [place] [address] PCP - General Family Practice 12/02/18 Rene Do, DO [address] [place] [address] Referring Physical Medicine and Rehab 06/15/21 Auto Heater Mechanic Relationship Specialty Start Date End Date Sylvia Lizama MD [address] [place] [address] PCP - General Family Practice 12/02/18 Rene Do, DO [address] [place] [address] Referring Physical Medicine and Rehab 06/15/21 Auto Heater Mechanic Relationship Specialty Start Date End Date Sylvia Lizama MD [address] [place] [address] PCP - General Family Practice 12/02/18 Rene Do, [place] [id number] [place] [address] Referring Physical Medicine and Rehab 06/15/21 Auto Heater Mechanic Relationship Specialty Start Date End Date Sylvia Lizama MD [address] [place] [address] PCP - General Family Practice 12/02/18 HiRene, [id number] [place] [address] Referring Physical Medicine and Rehab 06/15/21 Auto Heater Mechanic Relationship Specialty Start Date End Date Sylvia Lizama MD [address] [place] [address] PCP - General Family Practice 12/02/18 Hi Rene, [id number] [place] [address] Referring Physical Medicine and Rehab 06/15/21 Melba Escudero MD [address] [place] [address] Hematology/Oncology 05/03/22 Auto Heater Mechanic Relationship Specialty Start Date End Date Sylvia Lizama MD [address] [place] [address] PCP - General Family Practice 12/02/18 Hi Rene, [id number] [place] [address] Referring Physical Medicine and Rehab 06/15/21 Melba Escudero MD [address] [place] [address] Hematology/Oncology 05/03/22 Auto Heater Mechanic Relationship Specialty Start Date End Date Sylvia Lizama MD [address] [place] [address] PCP - General Family Practice 12/02/18 Hi Rene, [id number] [place] [address] Referring Physical Medicine and Rehab 06/15/21 Melba Escudero MD [address] [place] [address] Hematology/Oncology 05/03/22 Auto Heater Mechanic Relationship Specialty Start Date End Date Sylvia Lizama MD [address] [place] [address] PCP - General Family Practice 12/02/18 Hi Rene, [address] [address] Referring Physical Medicine and Rehab 06/15/21 Melba Escudero MD [address] [place] [place] [address] Hematology/Oncology 05/03/22 Auto Heater Mechanic Relationship Specialty Start Date End Date Sylvia Lizama MD [address] [place] [address] PCP - General Family Practice 12/02/18 Hi Rene, [address] [address] Referring Physical Medicine and Rehab 06/15/21 Melba Escudero MD [address] [place] [address] Hematology/Oncology 05/03/22 Auto Heater Mechanic Relationship Specialty Start Date End Date Sylvia Lizama MD [address] [place] [address] PCP - General Family Practice 12/02/18 Rene Do, [address] [address] Referring Physical Medicine and Rehab 06/15/21 Melba Escudero MD [address] [place] [address] Hematology/Oncology 05/03/22 Auto Heater Mechanic Relationship Specialty Start Date End Date Sylvia Lizama MD [address] [place] [address] PCP - General Family Practice 12/02/18 [facility], [address] [address] Referring Physical Medicine and Rehab 06/15/21 Melba Escudero MD [address] [place] [address] Hematology/Oncology 05/03/22 Chinyere Shea, FRANCESCO [address] [place] [address] Specialty Immigration Officer Hematology/Oncology 05/22/22 Auto Heater Mechanic Relationship Specialty Start Date End Date Sylvia Lizama MD [address] [facility] [place] [address] PCP - General Family Practice 12/02/[address] [address] Referring Physical Medicine and Rehab 06/15/21 Melba Escudero MD [address] [place] [address] Hematology/Oncology 05/03/22 Cihnyere Shea, FRANCESCO [address] [place] [address] Specialty Immigration Officer Hematology/Oncology 05/22/22 Auto Heater Mechanic Relationship Specialty Start Date End Date Sylvia Lizama MD [address] [place] [address] PCP - General Family Practice 12/02/18 Trevor Doan, [address] [address] Referring Physical Medicine and Rehab 06/15/21 Melba Escudero MD [address] [place] [address] Hematology/Oncology 05/03/22 Chinyere Shea, FRANCESCO [address] [place] [address] Specialty Immigration Officer Hematology/Oncology 05/22/22 Auto Heater Mechanic Relationship Specialty Start Date End Date Sylvia Lizama MD [address] [place] [address] PCP - General Family Practice 12/02/18 Rene Do, [address] [address] Referring Physical Medicine and Rehab 06/15/21 Melba Escudero MD [address] [place] [address] Hematology/Oncology 05/03/22 Chinyere Shea, FRANCESCO [address] [place] [address] Specialty Immigration Officer Hematology/Oncology 05/22/22 Auto Heater Mechanic Relationship Specialty Start Date End Date Sylvia Lizama MD [address] [place] [address] PCP - General Family Practice 12/02/18 Hi Rene, [address] [address] Referring Physical Medicine and Rehab 06/15/21 Melba Escudero MD [address] [place] [address] Hematology/Oncology 05/03/22 Chinyere Shea, RN [address] [place] [address] Specialty Immigration Officer Hematology/Oncology 05/22/22 Auto Heater Mechanic Relationship Specialty Start Date End Date Sylvia Lizama MD [address] [place] [address] PCP - General Family Practice 12/02/18 Rene Do, [address] [address] Referring Physical Medicine and Rehab 06/15/21 Melba Escudero MD [address] [place] [address] Hematology/Oncology 05/03/22 Chinyere Shea RN [address] [place] [address] Specialty Immigration Officer Hematology/Oncology 05/22/22 Auto Heater Mechanic Relationship Specialty Start Date End Date Sylvia Lizama MD [address] [place] [address] PCP - General Family Practice 12/02/18 Rene Do, [address] [address] Referring Physical Medicine and Rehab 06/15/21 Melba Escudero MD [address] [place] [address] Hematology/Oncology 05/03/22 Chinyere Shea RN [address] [place] [address] Specialty Immigration Officer Hematology/Oncology 05/22/22 Auto Heater Mechanic Relationship Specialty Start Date End Date Sylvia Lizama MD [address] [facility] [place] [address] PCP - General Family Practice 12/02/18 Rene Do DO [address] [place] [address] Referring Physical Medicine and Rehab 06/15/21 Melba Escudero MD [address] [place] [address] Hematology/Oncology 05/03/22 hCinyere Shea, FRANCESCO [address] [place] [address] Specialty Immigration Officer Hematology/Oncology 05/22/22 Auto Heater Mechanic Relationship Specialty Start Date End Date Sylvia Lizama MD [address] [facility] [place] [address] PCP - General Family Medicine 12/02/18 Rene Do, [address] [address] Referring Physical Medicine and Rehab 06/15/21 Melba Escudero MD [address] [place] [address] Hematology/Oncology 05/03/22 Chinyere Shea, FRANCESCO [address] [place] [address] Specialty Immigration Officer Hematology/Oncology 05/22/22 Auto Heater Mechanic Relationship Specialty Start Date End Date Sylvia Lizama MD [address] [place] [address] PCP - General Family Medicine 12/02/18 Rene Do, [address] [address] Referring Physical Medicine and Rehab 06/15/21 Melba Escudero MD [address] [address] Hematology/Oncology 05/03/22 Chinyere Shea, RN [address] [place] [address] Specialty Immigration Officer Hematology/Oncology 05/22/22 Auto Heater Mechanic Relationship Specialty Start Date End Date Sylvia Lizama MD [address] [place] [address] PCP - General Family Medicine 12/02/18 Rene Do, [address] [address] Referring Physical Medicine and Rehab 06/15/21 Melba Escudero MD [address] [address] Hematology/Oncology 05/03/22 Chinyere Shea, RN [address] [place] [address] Specialty Immigration Officer Hematology/Oncology 05/22/22 Auto Heater Mechanic Relationship Specialty Start Date End Date Sylvia Lizama MD [address] [place] [address] PCP - General Family Medicine 12/02/18 Rene Do, [address] [address] Referring Physical Medicine and Rehab 06/15/21 Melba Escudero MD [address] [place] [address] Hematology/Oncology 05/03/22 Chinyere Shea, FRANCESCO [address] [place] [address] Specialty Immigration Officer Hematology/Oncology 05/22/22 Auto Heater Mechanic Relationship Specialty Start Date End Date Sylvia Lizama MD [address] [place] [address] PCP - General Family Medicine 12/02/18 Rene Do, [address] [address] Referring Physical Medicine and Rehab 06/15/21 Melba Escudero MD [address] [place] [address] Hematology/Oncology 05/03/22 Chinyere Shea RN [address] [place] [place] [address] Specialty Immigration Officer Hematology/Oncology 05/22/22 Auto Heater Mechanic Relationship Specialty Start Date End Date Sylvia Lizama MD [address] [facility] [place] [address] PCP - General Family Medicine 12/02/18 Rene Do, [address] [address] Referring Physical Medicine and Rehab 06/15/21 Melba Escudero MD [address] [place] [address] Hematology/Oncology 05/03/22 Chinyere Shea RN [address] [place] [address] Specialty Immigration Officer Hematology/Oncology 05/22/22 Auto Heater Mechanic Relationship Specialty Start Date End Date Sylvia Lizama MD [address] [place] [address] PCP - General Family Medicine 12/02/18 Rene Do DO [id number] [place] [address] Referring Physical Medicine and Rehab 06/15/21 Melba Escudero MD [address] [place] [address] Hematology/Oncology 05/03/22 Chinyere Shea, FRANCESCO [address] [place] [address] Specialty Immigration Officer Hematology/Oncology 05/22/22 Enid Rod LISW [address] [place] [address] Registered Nurse Surgical Services Hematology/Oncology 07/15/22 Auto Heater Mechanic Relationship Specialty Start Date End Date Sylvia Lizama MD [address] [place] [address] PCP - General Family Medicine 12/02/18 R[place] DO [id number] [place] [address] Referring Physical Medicine and Rehab 06/15/21 Melba Escduero MD [address] [place] [address] Hematology/Oncology 05/03/22 Chinyere Shea, FRANCESCO [address] [place] [address] Specialty Immigration Officer Hematology/Oncology 05/22/22 Enid Rod LISW [address] [place] [address] Registered Nurse Surgical Services Hematology/Oncology 07/15/22 Auto Heater Mechanic Relationship Specialty Start Date End Date Sylvia Lizama MD [address] [place] [address] PCP - General Family Medicine 12/02/18 [place] [address] [place] [address] Referring Physical Medicine and Rehab 06/15/21 Melba Escudero MD [address] [place] [address] Hematology/Oncology 05/03/22 Chinyere Shea RN [address] [place] [address] Specialty Immigration Officer Hematology/Oncology 05/22/22 Enid Rod LISW [address] [place] [address] Registered Nurse Surgical Services Hematology/Oncology 07/15/22 Auto Heater Mechanic Relationship Specialty Start Date End Date Sylvia Lizama MD [address] [place] [address] PCP - General Family Medicine 12/02/18 [place] [address] [place] [address] Referring Physical Medicine and Rehab 06/15/21 Melba Escudero MD [address] [place] [address] Hematology/Oncology 05/03/22 Chinyere Shea RN [address] [facility] [place] [place] [address] Specialty Immigration Officer Hematology/Oncology 05/22/22 Enid Rod LISW [address] [place] [address] Registered Nurse Surgical Services Hematology/Oncology 07/15/22 Auto Heater Mechanic Relationship Specialty Start Date End Date Sylvia Lizama MD [address] [place] [address] PCP - General Family Medicine 12/02/18 R[place] [id number] [place] [address] Referring Physical Medicine and Rehab 06/15/21 Melba Escudero MD [address] [place] [address] Hematology/Oncology 05/03/22 Chinyere Shea RN [address] [place] [address] Specialty Immigration Officer Hematology/Oncology 05/22/22 Enid Rod LISW [address] [place] [address] Registered Nurse Surgical Services Hematology/Oncology 07/15/22 Auto Heater Mechanic Relationship Specialty Start Date End Date Sylvia Lizama MD [address] [facility] [place] [address] PCP - General Family Medicine 12/02/18 Rene Do DO [address] [place] [address] Referring Physical Medicine and Rehab 06/15/21 Melba Escudero MD [address] [place] [address] Hematology/Oncology 05/03/22 Chinyere Shea RN [address] [facility] [place] [address] Specialty Immigration Officer Hematology/Oncology 05/22/22 Enid Rod LISW [address] [place] [address] Registered Nurse Surgical Services Hematology/Oncology 07/15/22 Auto Heater Mechanic Relationship Specialty Start Date End Date ySlvia Lizama MD [address] [facility] [place] [address] PCP - General Family Medicine 12/02/18 Rene Do DO [address] [place] [address] Referring Physical Medicine and Rehab 06/15/21 Melba Escudero MD [address] [place] [address] Hematology/Oncology 05/03/22 Chinyere Shea RN [address] [place] [address] Specialty Immigration Officer Hematology/Oncology 05/22/22 Enid Rod LISW [address] [place] [address] Registered Nurse Surgical Services Hematology/Oncology 07/15/22 Auto Heater Mechanic Relationship Specialty Start Date End Date Sylvia Lizama MD [address] [place] [address] PCP - General Family Medicine 12/02/18 Rene Do DO [address] [place] [address] Referring Physical Medicine and Rehab 06/15/21 Melba Escudero MD [address] [place] [address] Hematology/Oncology 05/03/22 Chinyere Shea RN [address] [address] Specialty Immigration Officer Hematology/Oncology 05/22/22 Enid Rod LISW [address] [place] [address] Registered Nurse Surgical Services Hematology/Oncology 07/15/22 Auto Heater Mechanic Relationship Specialty Start Date End Date Sylvia Lizama MD [address] [place] [address] PCP - General Family Medicine 12/02/18 Rene Do DO [address] [place] [address] Referring Physical Medicine and Rehab 06/15/21 Melba Escudero MD [address] [place] [address] Hematology/Oncology 05/03/22 Chinyere Shea RN [address] [place] [address] Specialty Immigration Officer Hematology/Oncology 05/22/22 Enid Rod LISW [address] [place] [address] Registered Nurse Surgical Services Hematology/Oncology 07/15/22 Auto Heater Mechanic Relationship Specialty Start Date End Date Sylvia Lizama MD [address] [place] [address] PCP - General Family Medicine 12/02/[address] [address] Referring Physical Medicine and Rehab 06/15/21 Melba Escudero MD [address] [facility] [place] [place] [address] Hematology/Oncology 05/03/22 Chinyere Shea RN [address] [place] [address] Specialty Immigration Officer Hematology/Oncology 05/22/22 Enid Rod LISW [address] [place] [address] Registered Nurse Surgical Services Hematology/Oncology 07/15/22 Auto Heater Mechanic Relationship Specialty Start Date End Date Sylvia Lizama MD [address] [place] [address] PCP - General Family Medicine 12/02/18 Rene Do, [address] [address] Referring Physical Medicine and Rehab 06/15/21 Melba Escudero MD [address] [place] [address] Hematology/Oncology 05/03/22 Chinyere Shea RN [address] [place] [address] Specialty Immigration Officer Hematology/Oncology 05/22/22 Enid Rod LISW [address] [place] [address] Registered Nurse Surgical Services Hematology/Oncology 07/15/22 Auto Heater Mechanic Relationship Specialty Start Date End Date Sylvia Lizama MD [address] [place] [address] PCP - General Family Medicine 12/02/18 Rene Do [address] [address] Referring Physical Medicine and Rehab 06/15/21 Melba Escudero MD [address] [place] [address] Hematology/Oncology 05/03/22 Chinyere Shea RN [address] [place] [address] Specialty Immigration Officer Hematology/Oncology 05/22/22 Enid Rod LISW [address] [place] [address] Registered Nurse Surgical Services Hematology/Oncology 07/15/22 Auto Heater Mechanic Relationship Specialty Start Date End Date Sylvia Lizama MD [address] [place] [address] PCP - General Family Medicine 12/02/18 Rene Do, [address] [address] Referring Physical Medicine and Rehab 06/15/21 Melba Escudero MD [address] [place] [address] Hematology/Oncology 05/03/22 Chinyere Shea RN [address] [facility] [place] [address] Specialty Immigration Officer Hematology/Oncology 05/22/22 Enid Rod LISW [address] [place] [address] Registered Nurse Surgical Services Hematology/Oncology 07/15/22 Auto Heater Mechanic Relationship Specialty Start Date End Date Sylvia Lizama MD [address] [place] [address] PCP - General Family Medicine 12/02/18 Rene Do DO [address] [place] [address] Referring Physical Medicine and Rehab 06/15/21 Melba Escudero MD [address] [address] Hematology/Oncology 05/03/22 Chinyere Shea RN [address] [place] [address] Specialty Immigration Officer Hematology/Oncology 05/22/22 Enid Rod LISW [address] [place] [address] Registered Nurse Surgical Services Hematology/Oncology 07/15/22 Auto Heater Mechanic Relationship Specialty Start Date End Date Sylvia Lizama MD [address] [place] [address] PCP - General Family Medicine 12/02/18 Rene Do DO [address] [place] [address] Referring Physical Medicine and Rehab 06/15/21 Melba Escudero MD [address] [place] [address] Hematology/Oncology 05/03/22 Chinyere Shea RN [address] [place] [address] Specialty Immigration Officer Hematology/Oncology 05/22/22 Enid Rod LISW [address] [place] [address] Registered Nurse Surgical Services Hematology/Oncology 07/15/22 Auto Heater Mechanic Relationship Specialty Start Date End Date Sylvia Lizama MD [address] [place] [address] PCP - General Family Medicine 12/02/18 Rene Do DO [address] [place] [address] Referring Physical Medicine and Rehab 06/15/21 Melba Escudero MD [address] [place] [address] Hematology/Oncology 05/03/22 Chinyere Shea RN [address] [place] [address] Specialty Immigration Officer Hematology/Oncology 05/22/22 Enid Rod LISW [address] [place] [address] Registered Nurse Surgical Services Hematology/Oncology 07/15/22 Auto Heater Mechanic Relationship Specialty Start Date End Date Sylvia Lizama MD [address] [place] [address] PCP - General Family Medicine 12/02/18 Rene Do DO [address] [place] [address] Referring Physical Medicine and Rehab 06/15/21 Melba Escudero MD [address] [place] [address] Hematology/Oncology 05/03/22 Chinyere Shea RN [address] [place] [address] Specialty Immigration Officer Hematology/Oncology 05/22/22 Enid Rod LISW [address] [place] [address] Registered Nurse Surgical Services Hematology/Oncology 07/15/22 Auto Heater Mechanic Relationship Specialty Start Date End Date Sylvia Lizama MD [address] [place] [address] PCP - General Family Medicine 12/02/18 Rene Do, DO [address] [place] [address] Referring Physical Medicine and Rehab 06/15/21 Melba Escudero MD [address] [facility] [address] Hematology/Oncology 05/03/22 Chinyere Shea RN [address] [facility] [place] [place] [address] Specialty Immigration Officer Hematology/Oncology 05/22/22 Enid Rod LISW [address] [place] [address] Registered Nurse Surgical Services Hematology/Oncology 07/15/22 Auto Heater Mechanic Relationship Specialty Start Date End Date Sylvia Lizama MD [address] [place] [address] PCP - General Family Medicine 12/02/18 Rene Do, [id number] [place] [address] Referring Physical Medicine and Rehab 06/15/21 Melba Escudero MD [address] [place] [address] Hematology/Oncology 05/03/22 Chinyere Shea RN [address] [facility] [address] Specialty Immigration Officer Hematology/Oncology 05/22/22 Enid Rod LISW [address] [place] [address] Registered Nurse Surgical Services Hematology/Oncology 07/15/22 Auto Heater Mechanic Relationship Specialty Start Date End Date Sylvia Lizama MD [address] [facility] [place] [address] PCP - General Family Medicine 12/02/18 Rene Do, [id number] [place] [address] Referring Physical Medicine and Rehab 06/15/21 Melba Escudero MD [address] [facility] [place] [address] Hematology/Oncology 05/03/22 Chinyere Shea RN [address] [facility] [address] Specialty Immigration Officer Hematology/Oncology 05/22/22 Enid Rod LISW [address] [place] [address] Registered Nurse Surgical Services Hematology/Oncology 07/15/22 Auto Heater Mechanic Relationship Specialty Start Date End Date Sylvia Lizama MD [address] [facility] [place] [address] PCP - General Family Medicine 12/02/18 Rene Do, DO [id number] [place] [address] Referring Physical Medicine and Rehab 06/15/21 Melba Escudero MD [address] [facility] [place] [place] [address] Hematology/Oncology 05/03/22 Chinyere Shea RN [address] [facility] [place] [address] Specialty Immigration Officer Hematology/Oncology 05/22/22 Enid Rod LISW [address] [place] [address] Registered Nurse Surgical Services Hematology/Oncology 07/15/22 Anca Almonte MD [address] [place] [address] Oncology 12/19/22 Auto Heater Mechanic Relationship Specialty Start Date End Date Sylvia Lizama MD [address] [place] [address] PCP - General Family Medicine 12/02/18 Rene Do [address] [address] Referring Physical Medicine and Rehab 06/15/21 Melba Escudero MD [address] [place] [address] Hematology/Oncology 05/03/22 Chinyere Shea, FRANCESCO [address] [place] [address] Specialty Immigration Officer Hematology/Oncology 05/22/22 Enid Rod LISW [address] [place] [address] Registered Nurse Surgical Services Hematology/Oncology 07/15/22 Anca Almonte MD [address] [place] [address] Oncology 12/19/22 Auto Heater Mechanic Relationship Specialty Start Date End Date ySlvia Lizama MD [address] [place] [address] PCP - General Family Medicine 12/02/18 Rene Do, [address] [place] [address] Referring Physical Medicine and Rehab 06/15/21 Melba Escudero MD [address] [place] [address] Hematology/Oncology 05/03/22 Chinyere Shea RN [address] [place] [address] Specialty Immigration Officer Hematology/Oncology 05/22/22 Enid Rod LISW [address] [place] [address] Registered Nurse Surgical Services Hematology/Oncology 07/15/22 Anca Almonte MD [address] [place] [address] Oncology 12/19/22 Auto Heater Mechanic Relationship Specialty Start Date End Date Sylvia Lizama MD [address] [place] [address] PCP - General Family Medicine 12/02/18 Rene Do DO [address] [place] [address] Referring Physical Medicine and Rehab 06/15/21 Melba Escudero MD [address] [address] Hematology/Oncology 05/03/22 Chinyere Shea RN [address] [place] [address] Specialty Immigration Officer Hematology/Oncology 05/22/22 Enid Rod LISW [address] [place] [address] Registered Nurse Surgical Services Hematology/Oncology 07/15/22 Anca Almonte MD [address] [place] [address] Oncology 12/19/22 Auto Heater Mechanic Relationship Specialty Start Date End Date Sylvia Lizama MD [address] [place] [address] PCP - General Family Medicine 12/02/18 Rene Do DO [address] [place] [address] Referring Physical Medicine and Rehab 06/15/21 Melba Escudero MD [address] [place] [address] Hematology/Oncology 05/03/22 Chinyere Shea RN [address] [place] [address] Specialty Immigration Officer Hematology/Oncology 05/22/22 Enid Rod LISW [address] [place] [address] Registered Nurse Surgical Services Hematology/Oncology 07/15/22 Anca Almonte MD [address] [place] [address] Oncology 12/19/22 Auto Heater Mechanic Relationship Specialty Start Date End Date Sylvia Lizama MD [address] [place] [address] PCP - General Family Medicine 12/02/18 Rene Do DO [address] [place] [address]46 Referring Physical Medicine and Rehab 06/15/21 Melba Escudero MD [address] [place] [address] Hematology/Oncology 05/03/22 Chinyere Shea, FRANCESCO [address] [place] [address] Specialty Immigration Officer Hematology/Oncology 05/22/22 Enid Rod LISW [address] [place] [address] Registered Nurse Surgical Services Hematology/Oncology 07/15/22 Anca Almonte MD [address] [place] [address] Oncology 12/19/22 Auto Heater Mechanic Relationship Specialty Start Date End Date Sylvia Lizama MD [address] [place] [address] PCP - General Family Medicine 12/02/18 Rene Do DO [address] [place] [address]60 Referring Physical Medicine and Rehab 06/15/21 Melba Escudero MD [address] [place] [address] Hematology/Oncology 05/03/22 Chinyere Shea RN [address] [place] [address] Specialty Immigration Officer Hematology/Oncology 05/22/22 Enid Rod LISW [address] [place] [address] Registered Nurse Surgical Services Hematology/Oncology 07/15/22 Anca Almonte MD [address] [place] [address] Oncology 12/19/22 Auto Heater Mechanic Relationship Specialty Start Date End Date Sylvia Lizama MD [address] [place] [address] PCP - General Family Medicine 12/02/18 Rene Do DO [address] [place] [address] 13430 Referring Physical Medicine and Rehab 06/15/21 Melba Escudero MD [address] [place] [address] Hematology/Oncology 05/03/22 Chinyere Shea RN [address] [address] Specialty Immigration Officer Hematology/Oncology 05/22/22 Enid Rod LISW [address] [place] [address] Registered Nurse Surgical Services Hematology/Oncology 07/15/22 Anca Almonte MD [address] [place] [address] Oncology 12/19/22 Auto Heater Mechanic Relationship Specialty Start Date End Date Sylvia Lizama MD [address] [place] [address] PCP - General Family Medicine 12/02/18 Rene Do DO [address] [place] [address] 12671 Referring Physical Medicine and Rehab 06/15/21 Melba Escudero MD [address] [place] [address] Hematology/Oncology 05/03/22 Chinyere Shea RN [address] [place] [address] Specialty Immigration Officer Hematology/Oncology 05/22/22 Enid Rod LISW [address] [place] [address] Registered Nurse Surgical Services Hematology/Oncology 07/15/22 Anca Almonte MD [address] [place] [address] Oncology 12/19/22 Auto Heater Mechanic Relationship Specialty Start Date End Date Sylvia Lizama MD [address] [place] [address] PCP - General Family Medicine 12/02/18 Rene Do DO [address] [place] [address]18 Referring Physical Medicine and Rehab 06/15/21 Melba Escudero MD [address] [place] [address]858 Hematology/Oncology 05/03/22 Chinyere Shea RN [address] [place] [address] Specialty Immigration Officer Hematology/Oncology 05/22/22 Enid Rod LISW [address] [place] [address] Registered Nurse Surgical Services Hematology/Oncology 07/15/22 Anca Almonte MD [address] [place] [address] Oncology 12/19/22 Auto Heater Mechanic Relationship Specialty Start Date End Date Sylvia Lizama MD [facility] [place] [address] PCP - General Family Medicine 12/02/18 Rene Do DO [address] [place] [address]641 Referring Physical Medicine and Rehab 06/15/21 Melba Escudero MD [address] [place] [address]87 Hematology/Oncology 05/03/22 Chinyere Shea RN [address] [place] [place] [address] Specialty Immigration Officer Hematology/Oncology 05/22/22 Enid Rod LISW [address] [place] [address] Registered Nurse Surgical Services Hematology/Oncology 07/15/22 Anca Almonte MD [address] [place] [address] Oncology 12/19/22 Auto Heater Mechanic Relationship Specialty Start Date End Date Sylvia Lizama MD [address] [place] [place] [address] PCP - General Family Medicine 12/02/18 Rene oD DO [address] [place] [address]13 Referring Physical Medicine and Rehab 06/15/21 Melba Escudero MD [address] [place] [address] Hematology/Oncology 05/03/22 Chinyere Shea RN [address] [place] [address] Specialty Immigration Officer Hematology/Oncology 05/22/22 Enid Rod LISW [address] [place] [address] Registered Nurse Surgical Services Hematology/Oncology 07/15/22 Anca Almonte MD [address] [place] [address] Oncology 12/19/22 Auto Heater Mechanic Relationship Specialty Start Date End Date Sylvia Lizama MD [address] [facility] [place] [address] PCP - General Family Medicine 12/02/18 Rene Do DO [address] [place] [address]71 Referring Physical Medicine and Rehab 06/15/21 Melba Escudero MD [address] [place] [address] Hematology/Oncology 05/03/22 Chinyere Shea RN [address] [place] [address] Specialty Immigration Officer Hematology/Oncology 05/22/22 Enid Rod LISW [address] [place] [address] Registered Nurse Surgical Services Hematology/Oncology 07/15/22 Anca Almonte MD [address] [place], [place] [address] Oncology 12/19/22 Auto Heater Mechanic Relationship Specialty Start Date End Date Sylvia Lizama MD [address] [place] [address] [place], [place] [id number] PCP - General Family Medicine 12/02/18 Rene Do DO [address] [place] [address]73 Referring Physical Medicine and Rehab 06/15/21 Melba Escudero MD [address] [place] [address] Hematology/Oncology 05/03/22 Chinyere Shea RN [address] [place] [address] Specialty Immigration Officer Hematology/Oncology 05/22/22 Enid Rod LISW [address] [place] [address] Registered Nurse Surgical Services Hematology/Oncology 07/15/22 Anca Almonte MD [address] [place], [place] [address] Oncology 12/19/22 Auto Heater Mechanic Relationship Specialty Start Date End Date Sylvia Lizama MD [address] [place] [address] PCP - General Family Medicine 12/02/18 R[place] DO [id number] [place] [address] 31893 Referring Physical Medicine and Rehab 06/15/21 Melba Escudero MD [address] [place] [address] 83334 Hematology/Oncology 05/03/22 Chinyere Shea, RN [address] [facility] [place] [address] Specialty Immigration Officer Hematology/Oncology 05/22/22 Enid Rod LISW [address] [place] [address] Registered Nurse Surgical Services Hematology/Oncology 07/15/22 Anca Almonte MD [address] [place] [address] Oncology 12/19/22 Auto Heater Mechanic Relationship Specialty Start Date End Date Sylvia Lizama MD [address] [place] [address] PCP - General Family Medicine 12/02/18 Rene Do DO [address] [place] [address] 03495 Referring Physical Medicine and Rehab 06/15/21 Melba Escudero MD [id number] [place] [address] 90220 Hematology/Oncology 05/03/22 Chinyere Shea RN [address] [place] [address] Specialty Immigration Officer Hematology/Oncology 05/22/22 Enid Rod LISW [address] [place] [address] Registered Nurse Surgical Services Hematology/Oncology 07/15/22 Anca Almonte MD [address] [place] [address] Oncology 12/19/22 Auto Heater Mechanic Relationship Specialty Start Date End Date Sylvia Lizama MD [address] [place] [address] PCP - General Family Medicine 12/02/18 Rene Do DO [id number] [place] [address] 29435 Referring Physical Medicine and Rehab 06/15/21 Melba Escudero MD [address] [place] [address] 90100 Hematology/Oncology 05/03/22 Chinyere Shea RN [address] [place] [address] Specialty Immigration Officer Hematology/Oncology 05/22/22 Enid Rod LISW [address] [place] [address] Registered Nurse Surgical Services Hematology/Oncology 07/15/22 Anca Almonte MD [address] [place] [address] Oncology 12/19/22 Auto Heater Mechanic Relationship Specialty Start Date End Date Sylvia Lizama MD [address] [place] [address] PCP - General Family Medicine 12/02/18 Rene Do DO [id number] [place] [address] 38721 Referring Physical Medicine and Rehab 06/15/21 Melba Escudero MD [id number] [place] [address] 94233 Hematology/Oncology 05/03/22 Chinyere Shea RN [address] [place] [address] Specialty Immigration Officer Hematology/Oncology 05/22/22 Enid Rod LISW [address] [place] [address] Registered Nurse Surgical Services Hematology/Oncology 07/15/22 Anca Almonte MD [address] [place] [address] Oncology 12/19/22 Auto Heater Mechanic Relationship Specialty Start Date End Date Sylvia Lizama MD [facility] [place] [address] PCP - General Family Medicine 12/02/18 Rene Do DO [id number] [place] [address] 98519 Referring Physical Medicine and Rehab 06/15/21 Melba Escudero MD [id number] [place] [address] 76505 Hematology/Oncology 05/03/22 Chinyere Shea RN [address] [place], [place] [address] Specialty Immigration Officer Hematology/Oncology 05/22/22 Enid Rod LISW [address] [place] [address] Registered Nurse Surgical Services Hematology/Oncology 07/15/22 Anca Almonte MD [address] [place] [address] Oncology 12/19/22 Auto Heater Mechanic Relationship Specialty Start Date End Date Sylvia Lizama MD [address] [place] [address] PCP - General Family Medicine 12/02/18 Rene Do DO [address] [place] [address] 76720 Referring Physical Medicine and Rehab 06/15/21 Melba Escudero MD [address] [place] [address] 92320 Hematology/Oncology 05/03/22 Chinyere Shea, FRANCESCO [address] [place] [address] Specialty Immigration Officer Hematology/Oncology 05/22/22 Enid Rod LISW [address] [place] [address] Registered Nurse Surgical Services Hematology/Oncology 07/15/22 Anca Almonte MD [address] [place] [address] Oncology 12/19/22 Auto Heater Mechanic Relationship Specialty Start Date End Date Sylvia Lizama MD [address] [place] [address] PCP - General Family Medicine 12/02/[place] [address] [place] [address] Referring Physical Medicine and Rehab 06/15/21 [place] [address] [place] [address] Hematology/Oncology 05/03/22 Chinyere Shea RN [address] [place] [address] Specialty Immigration Officer Hematology/Oncology 05/22/22 Enid Rod LISW [address] [place] [address] Registered Nurse Surgical Services Hematology/Oncology 07/15/22 Anca Almonte MD [address] [place] [address] Oncology 12/19/22 Auto Heater Mechanic Relationship Specialty Start Date End Date Sylvia Lizama MD [address] [place] [address] PCP - General Family Medicine 12/02/[place] [address] [place] [address] Referring Physical Medicine and Rehab 06/15/21 Chinyere Shea RN [address] [place] [address] Specialty Immigration Officer Hematology/Oncology 05/22/22 Enid Rod LISW [address] [place] [address] Registered Nurse Surgical Services Hematology/Oncology 07/15/22 Prince Fang MD [address] [place] [address] Hematology/Oncology 06/18/23 Auto 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 Mechanic Relationship Specialty Start Date End Date Sylvia Lizama MD [address] [facility] [place], [place] [address]91 PCP - General Family Medicine 12/02/18 Rene Do DO [address] [place] [address] 89111 Referring Physical Medicine and Rehab 06/15/21 Chinyere Shea RN [address] [facility] [place] [address] Specialty Immigration Officer Hematology/Oncology 05/22/22 Enid Rod LISW [address] [place] [address] Registered Nurse Surgical Services Hematology/Oncology 07/15/22 Prince Fang MD [address] [facility] [place] [address] Hematology/Oncology 06/18/23 Auto Heater Mechanic Relationship Specialty Start Date End Date Sylvia Lizama MD [address] [place] [address] PCP - General Family Medicine 12/02/18 Rene Do DO [address] [place] [address] 90733 Referring Physical Medicine and Rehab 06/15/21 Chinyere Shea RN [address] [facility] [place] [place] [address] Specialty Immigration Officer Hematology/Oncology 05/22/22 Enid Rod LISW [address] [place] [address] Registered Nurse Surgical Services Hematology/Oncology 07/15/22 Prince Fang MD [address] [place] [address] Hematology/Oncology 06/18/23 Auto Heater Mechanic Relationship Specialty Start Date End Date Sylvia Lizama MD [address] [facility] [place] [address] PCP - General Family Medicine 12/02/18 Rene Do DO [address] [place] [address] 44794 Referring Physical Medicine and Rehab 06/15/21 Chinyere Shea, RN [address] [place] [address] Specialty Immigration Officer Hematology/Oncology 05/22/22 Enid Rod LISW [address] [place] [address] Registered Nurse Surgical Services Hematology/Oncology 07/15/22 Prince Fang MD [address] [place] [address] Hematology/Oncology 06/18/23 Auto Heater Mechanic Relationship Specialty Start Date End Date Sylvia Lizama MD [address] [facility] [address] PCP - General Family Medicine 12/02/18 R[place] [id number] [place] [address] 92619 Referring Physical Medicine and Rehab 06/15/21 Melba Escudero MD [address] [place] [address] 93560 Hematology/Oncology 05/03/22 06/17/23 Chinyere Shea RN [address] [place] [address] Specialty Immigration Officer Hematology/Oncology 05/22/22 Enid Rod LISW [address] [place] [address] Registered Nurse Surgical Services Hematology/Oncology 07/15/22 Auto Heater Mechanic Relationship Specialty Start Date End Date Sylvia Lizama MD [address] [place] [address] PCP - General Family Medicine 12/02/18 R[place] Do DO [id number] [place] [address] 61333 Referring Physical Medicine and Rehab 06/15/21 Melba Escudero MD [address] [place] [address] 97653 Hematology/Oncology 05/03/22 06/17/23 Chinyere Shea RN [address] [place] [address] Specialty Immigration Officer Hematology/Oncology 05/22/22 Enid Rod LISW [address] [place] [address] Registered Nurse Surgical Services Hematology/Oncology 07/15/22 Anca Almonte MD [address] [place] [address] Oncology 12/19/22 06/17/23 Auto Heater Mechanic Relationship Specialty Start Date End Date Sylvia Lizama MD [address] [place] [address] PCP - General Family Medicine 12/02/18 Rene Do DO [id number] [place] [address] 27400 Referring Physical Medicine and Rehab 06/15/21 Melba Escudero MD [address] [place] [address] 55293 Hematology/Oncology 05/03/22 06/17/23 Chinyere Shea RN [address] [place] [address] Specialty Immigration Officer Hematology/Oncology 05/22/22 Enid Rod LISW [address] [place] [address] Registered Nurse Surgical Services Hematology/Oncology 07/15/22 Auto Heater Mechanic Relationship Specialty Start Date End Date Sylvia Lizama MD [address] [place] [address] PCP - General Family Medicine 12/02/18 Rene Do DO [address] [place] [address] 39077 Referring Physical Medicine and Rehab 06/15/21 Melba Escudero MD [id number] [place] [address] 77540 Hematology/Oncology 05/03/22 06/17/23 Chinyere Shea RN [address] [place] [address] Specialty Immigration Officer Hematology/Oncology 05/22/22 Enid Rod LISW [address] [place] [address] Registered Nurse Surgical Services Hematology/Oncology 07/15/22 Auto Heater Mechanic Relationship Specialty Start Date End Date Sylvia Lizama MD [address] [place], [place] [address]81 PCP - General Family Medicine 12/02/18 [place] [address] [place] [address] Referring Physical Medicine and Rehab 06/15/21 [place] [address] [place] [address] Hematology/Oncology 05/03/22 06/17/23 Chinyere Shea RN [address] [place], [place] [address] Specialty Immigration Officer Hematology/Oncology 05/22/22 Enid Rod LISW [address] [place] [address] Registered Nurse Surgical Services Hematology/Oncology 07/15/22 Anca Almonte MD [address] [place] [address] Oncology 12/19/22 06/17/23 Auto Heater Mechanic Relationship Specialty Start Date End Date Sylvia Lizama MD [address] [place] [address] PCP - General Family Medicine 12/02/18 [place] [address] [place] [address] Referring Physical Medicine and Rehab 06/15/21 Chinyere Shea RN [address] [place] [address] Specialty Immigration Officer Hematology/Oncology 05/22/22 Enid Rod LISW [address] [place] [address] Registered Nurse Surgical Services Hematology/Oncology 07/15/22 Prince Fang MD [address] [place] [address] Hematology/Oncology 06/18/23 Kirsten Monroy [address] [place] [address] Optometry 08/25/23 Auto Heater Mechanic Relationship Specialty Start Date End Date Sylvia Lizama MD [address] [place] [address] PCP - General Family Medicine 12/02/18 Rene Do DO [id number] [place] [address] 80636 Referring Physical Medicine and Rehab 06/15/21 Chinyere Shea RN [address] [place] [address] Specialty Immigration Officer Hematology/Oncology 05/22/22 Enid Rod LISW [address] [place] [address] Registered Nurse Surgical Services Hematology/Oncology 07/15/22 Prince Fang MD [address] [place] [address] Hematology/Oncology 06/18/23 Kirsten Monroy [address] [place] [address] Optometry 08/25/23 Auto Heater Mechanic Relationship Specialty Start Date End Date Sylvia Lizama MD [address] [place] [address] PCP - General Family Medicine 12/02/18 Rene Do DO [id number] [place] [address] 11061 Referring Physical Medicine and Rehab 06/15/21 Chinyere Shea RN [address] [place] [address] Specialty Immigration Officer Hematology/Oncology 05/22/22 Enid Rod LISW [address] [place] [address] Registered Nurse Surgical Services Hematology/Oncology 07/15/22 Prince Fang MD [address] [place] [address] Hematology/Oncology 06/18/23 Ctr, [facility] [address] [place] [address] Optometry 08/25/23 Auto Heater Mechanic Relationship Specialty Start Date End Date Sylvia Lizama MD [address] [place] [address] PCP - General Family Medicine 12/02/18 [place] [address] [place] [address] Referring Physical Medicine and Rehab 06/15/21 Chinyere Shea RN [address] [place] [address] Specialty Immigration Officer Hematology/Oncology 05/22/22 Enid Rod LISW [address] [place] [address] Registered Nurse Surgical Services Hematology/Oncology 07/15/22 Prince Fang MD [address] [place] [address] Hematology/Oncology 06/18/23 Ctr, [facility] [address] [place] [address] Optometry 08/25/23 Auto Heater Mechanic Relationship Specialty Start Date End Date Sylvia Lizama MD [address] [place] [address] PCP - General Family Medicine 12/02/18 [place] [address] [place] [address] Referring Physical Medicine and Rehab 06/15/21 Chinyere Shea RN [address] [place] [address] Specialty Immigration Officer Hematology/Oncology 05/22/22 Enid Rod LISW [address] [place] [address] Registered Nurse Surgical Services Hematology/Oncology 07/15/22 Prince Fang MD [address] [place] [address] Hematology/Oncology 06/18/23 Ctr, [facility] [address] [place] [address] Optometry 08/25/23 Auto Heater Mechanic Relationship Specialty Start Date End Date Sylvia Lizama MD [address] [place] [address] PCP - General Family Medicine 12/02/18 [place] [address] [place] [address] Referring Physical Medicine and Rehab 06/15/21 Chinyere Shea RN [address] [place] [address] Specialty Immigration Officer Hematology/Oncology 05/22/22 Enid Rod LISW [address] [place] [address] Registered Nurse Surgical Services Hematology/Oncology 07/15/22 Prince Fang MD [address] [place] [address] Hematology/Oncology 06/18/23 Ctr, [facility] [address] [place] [address] Optometry 08/25/23 Auto Heater Mechanic Relationship Specialty Start Date End Date Sylvia Lizama MD [address] [place] [address] PCP - General Family Medicine 12/02/18 [place] [address] [place] [address] Referring Physical Medicine and Rehab 06/15/21 Chinyere Shea RN [address] [place] [address] Specialty Immigration Officer Hematology/Oncology 05/22/22 Enid Rod LISW [address] [place] [address] Registered Nurse Surgical Services Hematology/Oncology 07/15/22 Prince Fang MD [address] [place] [address] Hematology/Oncology 06/18/23 [facility], [facility] [address] [place] [address] Optometry 08/25/23 Auto Heater Mechanic Relationship Specialty Start Date End Date Sylvia Lizama MD [address] [place] [address] PCP - General Family Medicine 12/02/18 [place] [address] [place] [address] Referring Physical Medicine and Rehab 06/15/21 Chinyere Shea RN [address] [place] [address] Specialty Immigration Officer Hematology/Oncology 05/22/22 Enid Rod LISW [address] [place] [address] Registered Nurse Surgical Services Hematology/Oncology 07/15/22 Prince Fang MD [address] [place] [address] Hematology/Oncology 06/18/23 Ctr, [facility] [address] [place] [address] Optometry 08/25/23 Auto Heater Mechanic Relationship Specialty Start Date End Date Sylvia Lizama MD [address] [place] [address] PCP - General Family Medicine 12/02/18 [place] [address] [place] [address] Referring Physical Medicine and Rehab 06/15/21 Chinyere Shea, RN [address] [place] [address] Specialty Immigration Officer Hematology/Oncology 05/22/22 Enid Rod, LUZ MARIA [address] [place] [address] Registered Nurse Surgical Services Hematology/Oncology 07/15/22 Prince Fang MD [address] [place] [address] Hematology/Oncology 06/18/23 Ctr, [facility] [address] [place] [address] Optometry 08/25/23 Auto Heater Mechanic Relationship Specialty Start Date End Date Sylvia Lizama MD [address] [place] [address] PCP - General Family Medicine 12/02/18 [place] [address] [place] [address] Referring Physical Medicine and Rehab 06/15/21 Chinyere Shea RN [address] [place] [address] Specialty Immigration Officer Hematology/Oncology 05/22/22 Enid Rod LISW [address] [place] [address] Registered Nurse Surgical Services Hematology/Oncology 07/15/22 Prince Fang MD [address] [place] [address] Hematology/Oncology 06/18/23 Ctr, Kirsten Gonzáles [address] [place] [address] Optometry 08/25/23 Auto Heater Mechanic Relationship Specialty Start Date End Date Sylvia Lizama MD [address] [place] [address] PCP - General Family Medicine 12/02/18 [place] [address] [place] [address] Referring Physical Medicine and Rehab 06/15/21 Chinyere Shea RN [address] [place] [address] Specialty Immigration Officer Hematology/Oncology 05/22/22 Enid Rod LISW [address] [place] [address] Registered Nurse Surgical Services Hematology/Oncology 07/15/22 Prince Fang MD [address] [place] [address] Hematology/Oncology 06/18/23 Ctr, [facility] [address] [place] [address] Optometry 08/25/23 Auto Heater Mechanic Relationship Specialty Start Date End Date Sylvia Lizama MD [address] [place] [address] PCP - General Family Medicine 12/02/18 [place] [address] [place] [address] Referring Physical Medicine and Rehab 06/15/21 Chinyere Shea, FRANCESCO [address] [place] [address] Specialty Immigration Officer Hematology/Oncology 05/22/22 Enid Rod LISW [address] [place] [address] Registered Nurse Surgical Services Hematology/Oncology 07/15/22 Prince Fang MD [address] [place] [address] Hematology/Oncology 06/18/23 Ctr, [facility] [address] [place] [address] Optometry 08/25/23 Auto Heater Mechanic Relationship Specialty Start Date End Date Sylvia Lizama MD [address] [place] [address] PCP - General Family Medicine 12/02/18 [place] [address] [place] [address] Referring Physical Medicine and Rehab 06/15/21 Chinyere Shea RN [address] [place] [address] Specialty Immigration Officer Hematology/Oncology 05/22/22 Enid Rod LISW [address] [place] [address] Registered Nurse Surgical Services Hematology/Oncology 07/15/22 Prince Fang MD [address] [place] [address] Hematology/Oncology 06/18/23 Kirsten Monroy [address] [place] [address] Optometry 08/25/23 Auto Heater Mechanic Relationship Specialty Start Date End Date Sylvia Lizama MD [address] [place] [address] PCP - General Family Medicine 12/02/18 [place] [address] [place] [address] Referring Physical Medicine and Rehab 06/15/21 Chinyere Shea, FRANCESCO [address] [place] [address] Specialty Immigration Officer Hematology/Oncology 05/22/22 Enid Rod LISW [address] [place] [address] Registered Nurse Surgical Services Hematology/Oncology 07/15/22 Prince Fang MD [address] [place] [address] Hematology/Oncology 06/18/23 [facility]tr[facility] [address] [place] [address] Optometry 08/25/23 Auto Heater Mechanic Relationship Specialty Start Date End Date Sylvia Lizama MD [address] [place] [address] PCP - General Family Medicine 12/02/18 [place] [address] [place] [address] Referring Physical Medicine and Rehab 06/15/21 Chinyere Shea RN [address] [place] [address] Specialty Immigration Officer Hematology/Oncology 05/22/22 Enid Rod LISW [address] [place] [address] Registered Nurse Surgical Services Hematology/Oncology 07/15/22 Prince Fang MD [address] [place] [address] Hematology/Oncology 06/18/23 Ctr, [facility] [address] [place] [address] Optometry 08/25/23 Auto Heater Mechanic Relationship Specialty Start Date End Date Sylvia Lizama MD [address] [place] [address] PCP - General Family Medicine 12/02/[place] [address] [place] [address] Referring Physical Medicine and Rehab 06/15/21 Chinyere Shea RN [address] [place] [address] Specialty Immigration Officer Hematology/Oncology 05/22/22 Enid Rod LISW [address] [place] [address] Registered Nurse Surgical Services Hematology/Oncology 07/15/22 Prince Fang MD [address] [place] [address] Hematology/Oncology 06/18/23 Ctr, [facility] [address] [place] [address] Optometry 08/25/23 Auto Heater Mechanic Relationship Specialty Start Date End Date Sylvia Lizama MD [address] [place] [address] PCP - General Family Medicine 12/02/18 [place] [address] [place] [address] Referring Physical Medicine and Rehab 06/15/21 Chinyere Shea RN [address] [place] [address] Specialty Immigration Officer Hematology/Oncology 05/22/22 Enid Rod LISW [address] [place] [address] Registered Nurse Surgical Services Hematology/Oncology 07/15/22 Prince Fang MD [address] [place] [address] Hematology/Oncology 06/18/23 Eliana, Kirsten Gonzáles [address] [place] [address] Optometry 08/25/23 Auto Heater Mechanic Relationship Specialty Start Date End Date Sylvia Lizama MD [address] [place] [address] PCP - General Family Medicine 12/02/18 [place] [address] [place] [address] Referring Physical Medicine and Rehab 06/15/21 Chinyere Shea RN [address] [place] [address] Specialty Immigration Officer Hematology/Oncology 05/22/22 Enid Rod LISW [address] [place] [address] Registered Nurse Surgical Services Hematology/Oncology 07/15/22 Prince Fang MD [address] [place] [address] Hematology/Oncology 06/18/23 Ctr, [facility] [address] [place] [address] Optometry 08/25/23 Auto Heater Mechanic Relationship Specialty Start Date End Date Sylvia Lizama MD [address] [place] [address] PCP - General Family Medicine 12/02/18 Rene Do DO [address] [place] [address] 25754 Referring Physical Medicine and Rehab 06/15/21 Chinyere Shea RN [address] [place] [place] [address] Specialty Immigration Officer Hematology/Oncology 05/22/22 Enid Rod LISW [address] [place] [address] Registered Nurse Surgical Services Hematology/Oncology 07/15/22 Prince Fang MD [address] [place] [address] Hematology/Oncology 06/18/23 [facility], [facility] [address] [place] [address] Optometry 08/25/23 Bozena Hirsch RN [address] [id number] Primary Care Tappet Adjuster 03/29/24 Auto Heater Mechanic Relationship Specialty Start Date End Date Sylvia Lizama MD [address] [place] [address] PCP - General Family Medicine 12/02/18 [place] [id number] [place] [address] 63425 Referring Physical Medicine and Rehab 06/15/21 Chinyere Shea RN [address] [place] [address] Specialty Immigration Officer Hematology/Oncology 05/22/22 Enid Rod LISW [address] [place] [address] Registered Nurse Surgical Services Hematology/Oncology 07/15/22 Prince Fang MD [address] [place] [address] Hematology/Oncology 06/18/23 Ctr, [facility] [address] [place] [address] Optometry 08/25/23 Bozena Hirsch RN [address] [id number] Primary Care Tappet Adjuster 03/29/24 Auto Heater Mechanic Relationship Specialty Start Date End Date Sylvia Lizama MD [address] [place] [address] PCP - General Family Medicine 12/02/18 [place] [address] [place] [address] Referring Physical Medicine and Rehab 06/15/21 Chinyere Shea RN [address] [place] [address] Specialty Immigration Officer Hematology/Oncology 05/22/22 Enid Rod LISW [address] [place] [address] Registered Nurse Surgical Services Hematology/Oncology 07/15/22 Prince Fang MD [address] [place] [address] Hematology/Oncology 06/18/23 Ctr, [facility] [address] [place] [address] Optometry 08/25/23 Bozena Hirsch RN [address] [place] [address] Primary Care Tappet Adjuster 03/29/24 Auto Heater Mechanic Relationship Specialty Start Date End Date Sylvia Lizama MD [address] [facility] [place] [address] PCP - General Family Medicine 12/02/18 [place] [id number] [place] [address]852 Referring Physical Medicine and Rehab 06/15/21 Chinyere Shea RN [address] [facility] [place] [address] Specialty Immigration Officer Hematology/Oncology 05/22/22 Enid Rod LISW [address] [place] [address] Registered Nurse Surgical Services Hematology/Oncology 07/15/22 Prince Fang MD [address] [place] [address] Hematology/Oncology 06/18/23 Ctr, [facility] [address] [facility] [address] Optometry 08/25/23 Bozena Hirsch RN [address] [place] [address] Primary Care Tappet Adjuster 03/29/24 Auto Heater Mechanic Relationship Specialty Start Date End Date Sylvia Lizama MD [address] [place], [place] 233871 PCP - General Family Medicine 12/02/18 [place] [address] [place] [address] Referring Physical Medicine and Rehab 06/15/21 Chinyere Shea RN [address] [place] [address] Specialty Immigration Officer Hematology/Oncology 05/22/22 Enid Rod LISW [address] [place] [address] Registered Nurse Surgical Services Hematology/Oncology 07/15/22 Prince Fang MD [address] [place] [address] Hematology/Oncology 06/18/23 Ctr, [facility] [address] [place] [address] Optometry 08/25/23 Bozena Hirsch RN [address] [place] [id number] Primary Care Tappet Adjuster 03/29/24 Auto Heater Mechanic Relationship Specialty Start Date End Date Sylvia Lizama MD [address] [place] [address] PCP - General Family Medicine 12/02/18 [place] [address] [place] [address] Referring Physical Medicine and Rehab 06/15/21 Chinyere Shea RN [address] [place] [address] Specialty Immigration Officer Hematology/Oncology 05/22/22 Enid Rod LISW [address] [place] [address] Registered Nurse Surgical Services Hematology/Oncology 07/15/22 Prince Fang MD [address] [place] [address] Hematology/Oncology 06/18/23 Ctr, [facility] [address] [place] [address] Optometry 08/25/23 Bozena Hirsch RN [address] [place] [address] Primary Care Tappet Adjuster 03/29/24 Auto Heater Mechanic Relationship Specialty Start Date End Date Sylvia Lizama MD [address] [facility] [place] [address] PCP - General Family Medicine 12/02/18 [place] [id number] [place] [address] Referring Physical Medicine and Rehab 06/15/21 Chinyere Shea RN [address] [place] [address] Specialty Immigration Officer Hematology/Oncology 05/22/22 Enid Rod LISW [address] [facility] [place] [address] Registered Nurse Surgical Services Hematology/Oncology 07/15/22 Prince Fang MD [address] [facility] [place] [place] [address] Hematology/Oncology 06/18/23 Ctr, [facility] [address] [facility] [address] Optometry 08/25/23 Bozena Hirsch RN [address] [place] [address] Primary Care Tappet Adjuster 03/29/24 Auto Heater Mechanic Relationship Specialty Start Date End Date Sylvia Lizama MD [address] [facility] [place] [address] PCP - General Family Medicine 12/02/18 [place] [address] [place] [address] Referring Physical Medicine and Rehab 06/15/21 Chinyere Shea RN [address] [place] [address] Specialty Immigration Officer Hematology/Oncology 05/22/22 Enid Rod LISW [address] [place] [address] Registered Nurse Surgical Services Hematology/Oncology 07/15/22 Prince Fang MD [address] [place] [address] Hematology/Oncology 06/18/23 Ctr, [facility] [address] [place] [address] Optometry 08/25/23 Bozena Hirsch RN [address] [place] [address] Primary Care Tappet Adjuster 03/29/24 Auto Heater Mechanic Relationship Specialty Start Date End Date Sylvia Lizama MD [address] [place] [address] PCP - General Family Medicine 12/02/18 [place] [address] [place], [place] [address]880111 Referring Physical Medicine and Rehab 06/15/21 Chinyere Shea RN [address] [place] [address] Specialty Immigration Officer Hematology/Oncology 05/22/22 Enid Rod LISW [address] [place] [address] Registered Nurse Surgical Services Hematology/Oncology 07/15/22 Prince Fang MD [address] [place] [address] Hematology/Oncology 06/18/23 Ctr, [facility] [address] [place] [address] Optometry 08/25/23 Bozena Hirsch RN [address] [place] [address] Primary Care Tappet Adjuster 03/29/24 Auto Heater Mechanic Relationship Specialty Start Date End Date Sylvia Lizama MD [address] [place] [address] PCP - General Family Medicine 12/02/18 [place] [address] [place] [address] Referring Physical Medicine and Rehab 06/15/21 Chinyere Shea, FRANCESCO [address] [facility] [place] [place] [address] Specialty Immigration Officer Hematology/Oncology 05/22/22 Enid Rod LISW [address] [place] [address] Registered Nurse Surgical Services Hematology/Oncology 07/15/22 Prince Fang MD [address] [facility] [place] [address] Hematology/Oncology 06/18/23 Eliana, [facility] [address] [facility] [place] [address] Optometry 08/25/23 Bozena Hirsch, FRANCESCO [address] [place] [address] Primary Care Tappet Adjuster 03/29/24 Auto Heater Mechanic Relationship Specialty Start Date End Date Sylvia Lizama MD [address] [place] [address] PCP - General Family Medicine 12/02/18 [place] [address] [place] [address] Referring Physical Medicine and Rehab 06/15/21 Chinyere Shea, FRANCESCO [address] [facility] [place] [place] [address] Specialty Immigration Officer Hematology/Oncology 05/22/22 Enid Rod LISW [address] [place] [address] Registered Nurse Surgical Services Hematology/Oncology 07/15/22 Prince Fang MD [address] [facility] [place] [address] Hematology/Oncology 06/18/23 Ctr, [facility] [address] [place] [address] Optometry 08/25/23 Bozena Hirsch RN [address] [place] [address] Primary Care Tappet Adjuster 03/29/24 Auto Heater Mechanic Relationship Specialty Start Date End Date Sylvia Lizama MD [address] [facility] [address] PCP - General Family Medicine 12/02/[place] [address] [place] [address] Referring Physical Medicine and Rehab 06/15/21 Chinyere Shea, FRANCESCO [address] [place] [address] Specialty Immigration Officer Hematology/Oncology 05/22/22 Enid Rod LISW [address] [place] [address] Registered Nurse Surgical Services Hematology/Oncology 07/15/22 Prince Fang MD [address] [place] [address] Hematology/Oncology 06/18/23 Ctr, [facility] [address] [place] [address] Optometry 08/25/23 Auto Heater Mechanic Relationship Specialty Start Date End Date Sylvia Lizama MD [address] [place] [address] PCP - General Family Medicine 12/02/18 [place] [address] [place] [address] Referring Physical Medicine and Rehab 06/15/21 Chinyere Shea RN [address] [place] [address] Specialty Immigration Officer Hematology/Oncology 05/22/22 Enid Rod LISW [address] [place] [address] Registered Nurse Surgical Services Hematology/Oncology 07/15/22 Prince Fang MD [address] [place] [address] Hematology/Oncology 06/18/23 Ctr, [facility] [address] [place] [address] Optometry 08/25/23 Auto Heater Mechanic Relationship Specialty Start Date End Date Sylvia Lizama MD [address] [place] [address] PCP - General Family Medicine 12/02/18 [place] [address] [place] [address] Referring Physical Medicine and Rehab 06/15/21 Chinyere Shea RN [address] [address] Specialty Immigration Officer Hematology/Oncology 05/22/22 Enid Rod LISW [address] [place] [address] Registered Nurse Surgical Services Hematology/Oncology 07/15/22 Prince Fang MD [address] [place] [address] Hematology/Oncology 06/18/23 [facility] [address] [place] [address] Optometry 08/25/23 Auto Heater Mechanic Relationship Specialty Start Date End Date Sylvia Lizama MD [address] [place] [address] PCP - General Family Medicine 12/02/18 [place] [address] [place] [address] Referring Physical Medicine and Rehab 06/15/21 Chinyere Shea RN [address] [place] [address] Specialty Immigration Officer Hematology/Oncology 05/22/22 Enid Rod LISW [address] [place] [address] Registered Nurse Surgical Services Hematology/Oncology 07/15/22 Prince Fang MD [address] [place] [address] Hematology/Oncology 06/18/23 Kirsten Monroy [address] [place] [address] Optometry 08/25/23 Auto Heater Mechanic Relationship Specialty Start Date End Date Sylvia Lizama MD [address] [place] [address] PCP - General Family Medicine 12/02/18 [place] [address] [place] [address] Referring Physical Medicine and Rehab 06/15/21 Chinyere Shea RN [address] [place] [address] Specialty Immigration Officer Hematology/Oncology 05/22/22 Enid Rod LISW [address] [place] [address] Registered Nurse Surgical Services Hematology/Oncology 07/15/22 Prince Fang MD [address] [address] Hematology/Oncology 06/18/23 Ctr, [facility] [address] [place] [address] Optometry 08/25/23 Auto Heater Mechanic Relationship Specialty Start Date End Date Sylvia Lizama MD [address] [place] [address] PCP - General Family Medicine 12/02/18 Rene Do DO [address] [place] [address] Referring Physical Medicine and Rehab 06/15/21 Melba Escudero MD [address] [place] [address] Hematology/Oncology 05/03/22 06/17/23 Chinyere Shea, FRANCESCO [address] [place] [address] Specialty Immigration Officer Hematology/Oncology 05/22/22 Enid Rod LISW [address] [place] [address] Registered Nurse Surgical Services Hematology/Oncology 07/15/22 Anca Almonte MD [address] [place] [address] Oncology 12/19/22 06/17/23 Auto Heater Mechanic Relationship Specialty Start Date End Date Sylvia Lizama MD [address] [facility] [place] [address] PCP - General Family Medicine 12/02/18 [place] [id number] [place] [address] Referring Physical Medicine and Rehab 06/15/21 Melba Escudero MD [address] [place] [address] Hematology/Oncology 05/03/22 06/17/23 Chinyere Shea RN [address] [place] [address] Specialty Immigration Officer Hematology/Oncology 05/22/22 Enid Rod LISW [address] [place] [address] Registered Nurse Surgical Services Hematology/Oncology 07/15/22 Anca Almonte MD [address] [place] [address] Oncology 12/19/22 06/17/23 Auto Heater Mechanic Relationship Specialty Start Date End Date Sylvia Lizama MD [address] [place] [address] PCP - General Family Medicine 12/02/18 R[place] [id number] [place] [address] Referring Physical Medicine and Rehab 06/15/21 Chinyere Shea RN [address] [place] [place] [address] Specialty Immigration Officer Hematology/Oncology 05/22/22 Enid Rod LISW [address] [place] [address] Registered Nurse Surgical Services Hematology/Oncology 07/15/22 Prince Fang MD [address] [place], [place] 7[address]31 Hematology/Oncology 06/18/23 Ctr, [facility] [address] [place] [address] Optometry 08/25/23 Auto Heater Mechanic Relationship Specialty Start Date End Date Sylvia Lizama MD [address] [place] [address] PCP - General Family Medicine 12/02/18 Rene Do DO [address] [place] [address] Referring Physical Medicine and Rehab 06/15/21 Auto Heater Mechanic Relationship Specialty Start Date End Date Sylvia Lizama MD [address] [place] [address] PCP - General Family Medicine 12/02/18 Rene Do DO [address] [place] [address] Referring Physical Medicine and Rehab 06/15/21 Melba Escudero MD [address] [place] [address] Hematology/Oncology 05/03/22 Chinyere Shea, FRANCESCO [address] [place], [place] 192701 Specialty Immigration Officer Hematology/Oncology 05/22/22 Enid Rod LISW [address] [place] [address] Registered Nurse Surgical Services Hematology/Oncology 07/15/22 Anca Almonte MD [address] [place] [address] Oncology 12/19/22 Auto Heater Mechanic Relationship Specialty Start Date End Date Sylvia Lizama MD [address] [place] [address] PCP - General Family Medicine 12/02/18 Auto Heater Mechanic Relationship Specialty Start Date End Date Sylvia Lizama MD [address] [facility] [place], [place] [address] PCP - General Family Medicine 12/02/18 Auto Heater Mechanic Relationship Specialty Start Date End Date Sylvia Lizama MD [address] [place], [place] [address] PCP - General Family Medicine 12/02/18 Auto Heater Mechanic Relationship Specialty Start Date End Date Sylvia Lizama MD [address] [facility] [place] [address] PCP - General Family Medicine 12/02/18 [place] [address] [place] [address] Referring Physical Medicine and Rehab 06/15/21 Chinyere Shea, FRANCESCO [address] [place] [address] Specialty Immigration Officer Hematology/Oncology 05/22/22 Enid Rod LISW [address] [place] [address] Registered Nurse Surgical Services Hematology/Oncology 07/15/22 Prince Fang MD [address] [place] [address] Hematology/Oncology 06/18/23 Ctr, [facility] [address] [place] [address] Optometry 08/25/23 Auto Heater Mechanic Relationship Specialty Start Date End Date Sylvia Lizama MD [address] [place] [address] PCP - General Family Medicine 12/02/18 [place] [address] [place] [address] Referring Physical Medicine and Rehab 06/15/21 Chinyere Shea RN [address] [place] [address] Specialty Immigration Officer Hematology/Oncology 05/22/22 Enid Rod LISW [address] [place] [address] Registered Nurse Surgical Services Hematology/Oncology 07/15/22 Prince Fang MD [address] [place] [address] Hematology/Oncology 06/18/23 Ctr, [facility] [address] [place] [address] Optometry 08/25/23 Auto Heater Mechanic Relationship Specialty Start Date End Date Sylvia Lizama MD [address] [place] [address] PCP - General Family Medicine 12/02/18 [place] [address] [place] [address] Referring Physical Medicine and Rehab 06/15/21 Chinyere Shea RN [address] [address] Specialty Immigration Officer Hematology/Oncology 05/22/22 Enid Rod LISW [address] [place] [address] Registered Nurse Surgical Services Hematology/Oncology 07/15/22 Prince Fang MD [address] [place] [address] Hematology/Oncology 06/18/23 Ctr, [facility] [address] [place] [address] Optometry 08/25/23 Auto Heater Mechanic Relationship Specialty Start Date End Date Sylvia Lizama MD [address] [place] [address] PCP - General Family Medicine 12/02/18 R[place] DO [id number] [place] [address] Referring Physical Medicine and Rehab 06/15/21 Chinyere Shea, FRANCESCO [address] [place] [address] Specialty Immigration Officer Hematology/Oncology 05/22/22 Enid Rod LISW [address] [place] [address] Registered Nurse Surgical Services Hematology/Oncology 07/15/22 Prince Fang MD [address] [place] [address] Hematology/Oncology 06/18/23 Ctr, [facility] [address] [place] [address] Optometry 08/25/23 Auto Heater Mechanic Relationship Specialty Start Date End Date Sylvia Lizama MD [address] [place] [address] PCP - General Family Medicine 12/02/18 Rene Do DO [id number] [place] [address] Referring Physical Medicine and Rehab 06/15/21 Chinyere Shea RN [address] [place] [address] Specialty Immigration Officer Hematology/Oncology 05/22/22 Enid Rod LISW [address] [place] [address] Registered Nurse Surgical Services Hematology/Oncology 07/15/22 Prince Fang MD [address] [place] [address] Hematology/Oncology 06/18/23 Ctr, [facility] [address] [place] [address] Optometry 08/25/23 Auto Heater Mechanic Relationship Specialty Start Date End Date Sylvia Lizama MD [address] [place] [address] PCP - General Family Medicine 12/02/18 [place] [address] [place] [address] Referring Physical Medicine and Rehab 06/15/21 Chinyere Shea RN [address] [place] [address] Specialty Immigration Officer Hematology/Oncology 05/22/22 Enid Rod LISW [address] [place] [address] Registered Nurse Surgical Services Hematology/Oncology 07/15/22 Prince Fang MD [address] [place] [address] Hematology/Oncology 06/18/23 Ctr, [facility] [address] [place] [address] Optometry 08/25/23 Auto Heater Mechanic Relationship Specialty Start Date End Date Sylvia Lizama MD [address] [place] [address] PCP - General Family Medicine 12/02/18 [place] [address] [place] [address] Referring Physical Medicine and Rehab 06/15/21 Chinyere Shea RN [address] [facility] [place] [address] Specialty Immigration Officer Hematology/Oncology 05/22/22 Enid Rod LISW [address] [place] [address] Registered Nurse Surgical Services Hematology/Oncology 07/15/22 Prince Fang MD [address] [facility] [address] Hematology/Oncology 06/18/23 Ctr, [facility] [address] [place] [address] Optometry 08/25/23 Auto Heater Mechanic Relationship Specialty Start Date End Date Sylvia Lizama MD [address] [place] [address] PCP - General Family Medicine 12/02/18 [place] [address] [place] [address] Referring Physical Medicine and Rehab 06/15/21 Chinyere Shea RN [address] [address] Specialty Immigration Officer Hematology/Oncology 05/22/22 Enid Rod LISW [address] [place] [address] Registered Nurse Surgical Services Hematology/Oncology 07/15/22 Prince Fang MD [address] [place] [address] Hematology/Oncology 06/18/23 CtrKirsten [address] [place] [address] Optometry 08/25/23 Auto Heater Mechanic Relationship Specialty Start Date End Date Sylvia Lizama MD [address] [place] [address] PCP - General Family Medicine 12/02/18 [place] [address] [place] [address] Referring Physical Medicine and Rehab 06/15/21 Chinyere Shea RN [address] [place] [address] Specialty Immigration Officer Hematology/Oncology 05/22/22 Enid Rod LISW [address] [place] [address] Registered Nurse Surgical Services Hematology/Oncology 07/15/22 Prince Fang MD [address] [place] [address] Hematology/Oncology 06/18/23 CtrKirsten [address] [place] [address] Optometry 08/25/23 Auto Heater Mechanic Relationship Specialty Start Date End Date Sylvia Lizama MD [address] [place] [address] PCP - General Family Medicine 12/02/18 [place] [address] [place] [address] Referring Physical Medicine and Rehab 06/15/21 Chinyere Shea RN [address] [place] [address] Specialty Immigration Officer Hematology/Oncology 05/22/22 Enid Rod LISW [address] [place] [address] Registered Nurse Surgical Services Hematology/Oncology 07/15/22 Prince Fang MD [address] [place] [address] Hematology/Oncology 06/18/23 Ctr, [facility] [address] [place] [address] Optometry 08/25/23 Auto Heater Mechanic Relationship Specialty Start Date End Date Sylvai Lizama MD [address] [place] [address] PCP - General Family Medicine 12/02/18 R[place] [id number] [place] [address] Referring Physical Medicine and Rehab 06/15/21 Chinyere Shea RN [address] [place] [address] Specialty Immigration Officer Hematology/Oncology 05/22/22 Enid Rod LISW [address] [place] [address] Registered Nurse Surgical Services Hematology/Oncology 07/15/22 Prince Fang MD [address] [place] [address] Hematology/Oncology 06/18/23 Ctr, [facility] [address] [place] [address] Optometry 08/25/23 Auto Heater Mechanic Relationship Specialty Start Date End Date Sylvia Lizama MD [address] [place] [address] PCP - General Family Medicine 12/02/18 [place] [address] [place] [address] Referring Physical Medicine and Rehab 06/15/21 Chinyere Shea RN [address] [place] [address] Specialty Immigration Officer Hematology/Oncology 05/22/22 Enid Rod LISW [address] [place] [address] Registered Nurse Surgical Services Hematology/Oncology 07/15/22 Prince Fang MD [address] [place] [address] Hematology/Oncology 06/18/23 Ctr, [facility] [address] [place] [address] Optometry 08/25/23 Auto Heater Mechanic Relationship Specialty Start Date End Date Sylvia Lizama MD [address] [place] [address] PCP - General Family Medicine 12/02/18 [place] [address] [place] [address] Referring Physical Medicine and Rehab 06/15/21 Chinyere Shea RN [address] [place] [address] Specialty Immigration Officer Hematology/Oncology 05/22/22 Enid Rod LISW [address] [place] [address] Registered Nurse Surgical Services Hematology/Oncology 07/15/22 Prince Fang MD [address] [place] [address] Hematology/Oncology 06/18/23 Ctr, [facility] [address] [place] [address] Optometry 08/25/23 Auto Heater Mechanic Relationship Specialty Start Date End Date Sylvia Lizama MD [address] [place] [address] PCP - General Family Medicine 12/02/18 [place] [address] [place] [address] Referring Physical Medicine and Rehab 06/15/21 Chinyere Shea RN [address] [place] [address] Specialty Immigration Officer Hematology/Oncology 05/22/22 Enid Rod LISW [address] [place] [address] Registered Nurse Surgical Services Hematology/Oncology 07/15/22 Prince Fang MD [address] [place] [address] Hematology/Oncology 06/18/23 Ctr, [facility] [address] [place] [address] Optometry 08/25/23 Gini Ayala APRN.TIER [place] [address] [place] [address] Slip Maker Family Medicine 08/30/24 Judith Pickard APRN.TIER [place] [address] [place] [address] Slip Maker Family Medicine 08/30/24 Auto Heater Mechanic Relationship Specialty Start Date End Date Sylvia Lizama MD [address] [place] [address] PCP - General Family Medicine 12/02/18 [place] [address] [place] [address] Referring Physical Medicine and Rehab 06/15/21 Chinyere Shea RN [address] [place] [address] Specialty Immigration Officer Hematology/Oncology 05/22/22 Enid Rod LISW [address] [place] [address] Registered Nurse Surgical Services Hematology/Oncology 07/15/22 Prince Fang MD [address] [place] [address] Hematology/Oncology 06/18/23 Ctr, [facility] [address] [facility] [address] Optometry 08/25/23 Gini Ayala APRN.TIER [place] [address] [facility] [place] [address] Slip Maker Family Medicine 08/30/24 Judith Pickard APRN.TIER [place] [address] [place] [address] Slip Maker Family Medicine 08/30/24 Auto Heater Mechanic Relationship Specialty Start Date End Date Sylvia Lizama MD [address] [place] [address] PCP - General Family Medicine 12/02/18 [place] [address] [place] [address] Referring Physical Medicine and Rehab 06/15/21 Chinyere Shea RN [address] [place], [place] [address] Specialty Immigration Officer Hematology/Oncology 05/22/22 Enid Rod LISW [address] [place] [address] Registered Nurse Surgical Services Hematology/Oncology 07/15/22 Prince Fang MD [address] [facility] [place] [address] Hematology/Oncology 06/18/23 Ctr, [facility] [address] [facility] [place] [address] Optometry 08/25/23 Gini Ayala APRN.TIER [place] [address] [facility] [place], [place] [address] Slip Maker Family Medicine 08/30/24 Judith Pickard [employer]ERCIAL [employer] ESTATE LENDER.TIER [place] [address] [place] [address] Slip Maker Family Medicine 08/30/24 Auto Heater Mechanic Relationship Specialty Start Date End Date Sylvia Lizama MD [address] [facility] [place] [address] PCP - General Family Medicine 12/02/18 [place] [address] [place], [place] 23749[address] Referring Physical Medicine and Rehab 06/15/21 Chinyere Shea, RN [address] [place], [place] [address] Specialty Immigration Officer Hematology/Oncology 05/22/22 Enid Rod LISW [address] [place] [address] Registered Nurse Surgical Services Hematology/Oncology 07/15/22 Prince Fang MD [address] [place] [address] Hematology/Oncology 06/18/23 Ctr, [facility] [address] [place] [address] Optometry 08/25/23 Gini Ayala APRN.TIER IN [address] [place] [address] Slip Maker Family Medicine 08/30/24 Judith Pickard APRN.TIER IN [address] [place] [address] Slip Maker Family Medicine 08/30/24 Auto Heater Mechanic Relationship Specialty Start Date End Date Sylvia Lizama MD [address] [place] [address] PCP - General Family Medicine 12/02/[place] [address] [place], [place] [address] Referring Physical Medicine and Rehab 06/15/21 Chinyere Shea, FRANCESCO [address] [facility] [place] [address] Specialty Immigration Officer Hematology/Oncology 05/22/22 Enid Rod LISW 721 [place] [address] Registered Nurse Surgical Services Hematology/Oncology 07/15/22 Prince Fang MD [address] [facility] [address] Hematology/Oncology 06/18/23 Ctr, [facility] [address] [place] [address] Optometry 08/25/23 Gini Ayala APRN.TIER [place] 1740 [facility] [place] [address] Slip Maker Family Medicine 08/30/24 Judith Pickard COMMERCIAL REAL ESTATE LENDER.TIER [place] [address] [place] [address] Slip Maker Family Medicine 08/30/24 Auto Heater Mechanic Relationship Specialty Start Date End Date Sylvia Lizama MD [address] [place] [address] PCP - General Family Medicine 12/02/18 [place] [address] [place], [place] [id number] Referring Physical Medicine and Rehab 06/15/21 Chinyere Shea RN [address] [facility] [address] Specialty Immigration Officer Hematology/Oncology 05/22/22 Enid Rod LISW 721 [place] [address] Registered Nurse Surgical Services Hematology/Oncology 07/15/22 Prince Fang MD [address] [facility] [address] Hematology/Oncology 06/18/23 Eliana, [facility] [address] [facility] [place] [address] Optometry 08/25/23 Gini Ayala, COMMERCIAL REAL ESTATE LENDER.[place]ER [place] 1740 [facility] [place] [address] Slip Maker Family Medicine 08/30/24 Auto Heater Mechanic Relationship Specialty Start Date End Date Sylvia Lizama MD [address] [facility] [place] [address] PCP - General Family Medicine 12/02/18 [place] [address] [place] [address] Referring Physical Medicine and Rehab 06/15/21 Chinyere Shea RN [address] [place], [place] [address] Specialty Immigration Officer Hematology/Oncology 05/22/22 Enid Rod LISW 721 [place] [address] Registered Nurse Surgical Services Hematology/Oncology 07/15/22 Prince Fang MD [address] [place] [address] Hematology/Oncology 06/18/23 Ctr, [facility] [address] [facility] [address] Optometry 08/25/23 Gini Ayala APRN.TIER IN 1740 [facility] [place] [address] Slip Maker Family Medicine 08/30/24 Judith Pickard APRN.TIER IN [address] [place] [address] Slip Maker Family Medicine 08/30/24 Auto Heater Mechanic Relationship Specialty Start Date End Date Sylvia Lizama MD [address] [place] [address] PCP - General Family Medicine 12/02/18 [place] [address] [place] [address] Referring Physical Medicine and Rehab 06/15/21 Chinyere Shea RN [address] [place] [address] Specialty Immigration Officer Hematology/Oncology 05/22/22 Enid Rod LISW [address] [place] [address] Registered Nurse Surgical Services Hematology/Oncology 07/15/22 Prince Fang MD [address] [facility] [place] [address] Hematology/Oncology 06/18/23 Eliana, [facility] [address] [place] [address] Optometry 08/25/23 Gini Ayala, BECKY.TIER IN [address] [place] [address] Slip Maker Family Medicine 08/30/24 Judith Pickard COMMERCIAL REAL ESTATE LENDER.TIER IN [address] [place] [address] Slip Maker Family Medicine 08/30/24 Auto Heater Mechanic Relationship Specialty Start Date End Date Sylvia Lizama MD [address] [place] [address] PCP - General Family Medicine 12/02/18 [place] [address] [place] [address] Referring Physical Medicine and Rehab 06/15/21 Chinyere Shea, FRANCESCO [address] [place] [address] Specialty Immigration Officer Hematology/Oncology 05/22/22 Enid Rod LISW [address] [place] [address] Registered Nurse Surgical Services Hematology/Oncology 07/15/22 Prince Fang MD [address] [place] [address] Hematology/Oncology 06/18/23 Ctr, [facility] [address] [place] [address] Optometry 08/25/23 Gini Ayala APRN.TIER IN [address] [place] [address] Slip Maker Family Medicine 08/30/24 Judith Pickard APRN.TIER IN [address] [place] [address] Slip Maker Family Medicine 08/30/24 Auto Heater Mechanic Relationship Specialty Start Date End Date Sylvia Lizama MD [address] [place] [address] PCP - General Family Medicine 12/02/18 [place] [id number] [place] [address] Referring Physical Medicine and Rehab 06/15/21 Chinyere Shea RN [address] [place] [address] Specialty Immigration Officer Hematology/Oncology 05/22/22 Enid Rod LISW [address] [place] [address] Registered Nurse Surgical Services Hematology/Oncology 07/15/22 Prince Fang MD [address] [place] [address] Hematology/Oncology 06/18/23 Ctr, [facility] [address] [place] [address] Optometry 08/25/23 Gini Ayala APRN.TIER IN [address] [place] [address] Slip Maker Family Medicine 08/30/24 Judith Pickard COMMERCIAL REAL ESTATE LENDER.TIER IN [address] [place] [address] Slip Maker Family Medicine 08/30/24 Auto Heater Mechanic Relationship Specialty Start Date End Date Sylvia Lizama MD [address] [place] [address] PCP - General Family Medicine 12/02/[place] [address] [place] [address] Referring Physical Medicine and Rehab 06/15/21 Chinyere Shea, FRANCESCO [address] [place] [address] Specialty Immigration Officer Hematology/Oncology 05/22/22 Enid Rod LISW [address] [place] [address] Registered Nurse Surgical Services Hematology/Oncology 07/15/22 Prince Fang MD [address] [place] [address] Hematology/Oncology 06/18/23 Eliana, [facility] [address] [place] [address] Optometry 08/25/23 Gini Ayala, COMMERCIAL REAL ESTATE LENDER.TIER IN [address] [place] [address] Slip Maker Family Medicine 08/30/24 Judith Pickard COMMERCIAL REAL ESTATE LENDER.TIER IN [address] [place] [address] Slip Maker Family Medicine 08/30/24 Auto Heater Mechanic Relationship Specialty Start Date End Date Sylvia Lizama MD [address]40 [place] [address] PCP - General Family Medicine 12/02/18 [place] [address] [place] [address] Referring Physical Medicine and Rehab 06/15/21 Chinyere Shea RN [address] [place] [address] Specialty Immigration Officer Hematology/Oncology 05/22/22 Enid Rod LISW 721 [place] [address] Registered Nurse Surgical Services Hematology/Oncology 07/15/22 Prince Fang MD [address] [place] [address] Hematology/Oncology 06/18/23 Ctr, [facility] [address]3 [place] [address] Optometry 08/25/23 Gini Ayala, COMMERCIAL REAL ESTATE LENDER.TIER IN 1740 [place] [address] Slip Maker Family Medicine 08/30/24 Judith Pickard COMMERCIAL REAL ESTATE LENDER.TIER IN [address] [place] [address] Slip Maker Family Medicine 08/30/24 Auto Heater Mechanic Relationship Specialty Start Date End Date Sylvia Lizama MD [address] [place] [address] PCP - General Family Medicine 12/02/18 [place] [address] [place] [address] Referring Physical Medicine and Rehab 06/15/21 Chinyere Shea RN [address] [place] [address] Specialty Immigration Officer Hematology/Oncology 05/22/22 Enid Rod LISW [address] [place] [address] Registered Nurse Surgical Services Hematology/Oncology 07/15/22 Prince Fang MD [address] [facility] [place] [address] Hematology/Oncology 06/18/23 Ctr, [facility] [address] [place] [address] Optometry 08/25/23 Gini Ayala APRN.TIER IN [address] [place] [address] Slip Maker Family Medicine 08/30/24 Judith Pickard COMMERCIAL REAL ESTATE LENDER.TIER IN [address] [place] [address] Slip Maker Family Medicine 08/30/24 Auto Heater Mechanic Relationship Specialty Start Date End Date Sylvia Lizama MD [address] [place] [address] PCP - General Family Medicine 12/02/18 [place] [address] [place] [address] Referring Physical Medicine and Rehab 06/15/21 Chinyere Shea RN [address] [place] [address] Specialty Immigration Officer Hematology/Oncology 05/22/22 Enid Rod LISW [address] [place] [address] Registered Nurse Surgical Services Hematology/Oncology 07/15/22 Prince Fang MD [address] [place] [address] Hematology/Oncology 06/18/23 Ctr, [employer] [facility] [address] [place] [address] Optometry 08/25/23 Gini Ayala APRN.TIER IN 1740 [place] [address] Slip Maker Family Medicine 08/30/24 Judith Pickard APRN.TIER IN [address] [place], [place] [address] Slip Maker Family Medicine 08/30/24 Auto Heater Mechanic Relationship Specialty Start Date End Date Sylvia Lizama MD [address] [place], [place] [address] PCP - General Family Medicine 12/02/18 [place] [address] [place], [place] [id number] Referring Physical Medicine and Rehab 06/15/21 Chinyere Shea, FRANCESCO [address] [place] [address] Specialty Immigration Officer Hematology/Oncology 05/22/22 Enid Rod LISW [address] [place] [address] Registered Nurse Surgical Services Hematology/Oncology 07/15/22 Prince Fang MD [address] [place] [address] Hematology/Oncology 06/18/23 Ctr, [facility] [address] [place] [address] Optometry 08/25/23 Gini Ayala APRN.TIER IN 1740 [facility] [place] [address] Slip Maker Family Medicine 08/30/24 Judith Pickard, COMMERCIAL REAL ESTATE LENDER.TIER IN [address] [facility] [place] [address] Slip Maker Family Medicine 08/30/24 Auto Heater Mechanic Relationship Specialty Start Date End Date Sylvia Lizama MD [address] [place] [address] PCP - General Family Medicine 12/02/18 [place] [address] [place] [address] Referring Physical Medicine and Rehab 06/15/21 Chinyere Shea, FRANCESCO [address] [facility] [address] Specialty Immigration Officer Hematology/Oncology 05/22/22 Enid Rod LISW 721 [place] [address] Registered Nurse Surgical Services Hematology/Oncology 07/15/22 Prince Fang MD [address] [facility] [address] Hematology/Oncology 06/18/23 Ctr, [facility] [address] [facility] [place] [address] Optometry 08/25/23 Gini Ayala, COMMERCIAL REAL ESTATE LENDER.TIER IN 1740 [facility] [place] [address] Slip Maker Family Medicine 08/30/24 Judith Pickard, COMMERCIAL REAL ESTATE LENDER.TIER IN [address]40 [facility] [place] [address] Slip Maker Family Medicine 08/30/24 Auto Heater Mechanic Relationship Specialty Start Date End Date Sylvia Lizama MD [address] [place] [address] PCP - General Family Medicine 12/02/[place] [address] [place] [address] Referring Physical Medicine and Rehab 06/15/21 Chinyere Shea RN [address] [place] [address] Specialty Immigration Officer Hematology/Oncology 05/22/22 Enid Rod LISW 721 [facility] [place] [address] Registered Nurse Surgical Services Hematology/Oncology 07/15/22 Prince Fang MD [address] [place] [address] Hematology/Oncology 06/18/23 Eliana, [facility] [address] [facility] [address] Optometry 08/25/23 Gini Ayala, COMMERCIAL REAL ESTATE LENDER.TIER IN [address]40 [place] [address] Slip Maker Family Medicine 08/30/24 Judith Pickard, COMMERCIAL REAL ESTATE LENDER.TIER IN [address] [facility] [place] [address] Slip Maker Family Medicine 08/30/24 Auto Heater Mechanic Relationship Specialty Start Date End Date Sylvia Lizama MD [address] [place] [address] PCP - General Family Medicine 12/02/18 [place] [address] [place] [address] Referring Physical Medicine and Rehab 06/15/21 Chinyere Shea, RN [address] [place], [place] [address] Specialty Immigration Officer Hematology/Oncology 05/22/22 Enid Rod LISW [address] [place] [address] Registered Nurse Surgical Services Hematology/Oncology 07/15/22 Prince Fang MD [address] [place] [address] Hematology/Oncology 06/18/23 Ctr, [facility] [address] [place] [address] Optometry 08/25/23 Gini Ayala APRN.TIER IN [address]40 [place] [address] Slip Maker Family Medicine 08/30/24 Judith Pickard APRN.TIER IN [address]40 [facility] [place] [address] Slip Maker Family Medicine 08/30/24 Team Status: Active Member [...] Other Provider Active Start: December 01, 2024 Auto Heater Mechanic Relationship Specialty Start Date End Date Sylvia Lizama MD [address] [place] [address] PCP - General Family Medicine 12/02/18 [place] [address] [place] [address] Referring Physical Medicine and Rehab 06/15/21 Chinyere Shea RN [address] [place] [address] Specialty Immigration Officer Hematology/Oncology 05/22/22 Enid Rod LISW [address] [place] [address] Registered Nurse Surgical Services Hematology/Oncology 07/15/22 Prince Fang MD [address] [facility] [place] [address] Hematology/Oncology 06/18/23 Eliana, Kirsten Gonzáles [address] [place] [address] Optometry 08/25/23 Gini Ayala APRN.TIER IN 1740 [facility] [place] [address] Slip Maker Family Medicine 08/30/24 Judith Pickard APRN.TIER IN [address] [place] [address] Slip Maker Family Medicine 08/30/24 Auto Heater Mechanic Relationship Specialty Start Date End Date Sylvia Lizama MD [address] [place] [address] PCP - General Family Medicine 12/02/[place] [address] [place] [address] Referring Physical Medicine and Rehab 06/15/21 Chinyere Shea RN [address] [place] [address] Specialty Immigration Officer Hematology/Oncology 05/22/22 Enid Rod LISW [address] [place] [address] Registered Nurse Surgical Services Hematology/Oncology 07/15/22 Prince Fang MD [address] [place] [address] Hematology/Oncology 06/18/23 Ctr, [facility] [address] [place] [address] Optometry 08/25/23 Gini Ayala APRN.TIER IN [address] [place] [address] Slip Maker Family Medicine 08/30/24 Judith Pickard APRN.TIER IN [address] [place] [address] Slip Maker Family Medicine 08/30/24 Auto Heater Mechanic Relationship Specialty Start Date End Date Sylvia Lizama MD [address] [place] [address] PCP - General Family Medicine 12/02/18 [place] [address] [place] [address] Referring Physical Medicine and Rehab 06/15/21 Chinyere Shea, FRANCESCO [address] [place] [address] Specialty Immigration Officer Hematology/Oncology 05/22/22 Enid Rod LISW [address] [place] [address] Registered Nurse Surgical Services Hematology/Oncology 07/15/22 Prince Fang MD [address] [place] [address] Hematology/Oncology 06/18/23 Ctr, [facility] [address] [facility] [address] Optometry 08/25/23 Gini Ayala APRN.TIER IN [address] [place] [address] Slip Maker Family Medicine 08/30/24 Judith Pickard APRN.TIER IN [address] [place] [address] Slip Maker Family Medicine 08/30/24 Auto Heater Mechanic Relationship Specialty Start Date End Date Sylvia Lizama MD [address] [facility] [place] [address] PCP - General Family Medicine 12/02/18 [place] [address] [place], [place] [address] Referring Physical Medicine and Rehab 06/15/21 Chinyere Shea, FRANCESCO [address] [facility] [address] Specialty Immigration Officer Hematology/Oncology 05/22/22 Enid Rod LISW [address] [place] [address] Registered Nurse Surgical Services Hematology/Oncology 07/15/22 Prince Fang MD [address] [facility] [address] Hematology/Oncology 06/18/23 [facility], [facility] [address] [facility] [address] Optometry 08/25/23 Gini Ayala APRN.TIER IN 1740 [facility] [place] [address] Slip Maker Family Medicine 08/30/24 Judith Pickard APRN.TIER IN [address] [place] [address] Slip Maker Family Medicine 08/30/24 Auto Heater Mechanic Relationship Specialty Start Date End Date Sylvia Lizama MD [address] [place], [place] [address] PCP - General Family Medicine 12/02/18 [place] [address] [place] [address] Referring Physical Medicine and Rehab 06/15/21 Chinyere Shea RN [address] [place] [address] Specialty Immigration Officer Hematology/Oncology 05/22/22 Enid Rod LISW [address] [place] [address] Registered Nurse Surgical Services Hematology/Oncology 07/15/22 Prince Fang MD [address] [place] [address] Hematology/Oncology 06/18/23 Eliana, [facility] [address] [facility] [place] [address] Optometry 08/25/23 Gini Ayala, COMMERCIAL REAL ESTATE LENDER.TIER IN [address] [place] [address] Slip Maker Family Medicine 08/30/24 Judith Pickard COMMERCIAL REAL ESTATE LENDER.TIER IN [address] [place] [address] Slip Maker Family Medicine 08/30/24 Auto Heater Mechanic Relationship Specialty Start Date End Date Sylvia Lizama MD [address] [place], [place] 138[address] PCP - General Family Medicine 12/02/18 [place] [address] [place] [address] Referring Physical Medicine and Rehab 06/15/21 Chinyere Shea RN [address] [place] [address] Specialty Immigration Officer Hematology/Oncology 05/22/22 Enid Rod LISW [address] [place] [address] Registered Nurse Surgical Services Hematology/Oncology 07/15/22 Prince Fang MD [address] [place] [address] Hematology/Oncology 06/18/23 Eliana, [facility] [address] [place] [address] Optometry 08/25/23 Gini Aayla, COMMERCIAL REAL ESTATE LENDER.TIER IN [address]40 [facility] [place] [address] Slip Maker Family Medicine 08/30/24 Judith Pickard COMMERCIAL REAL ESTATE LENDER.TIER IN [address] [facility] [place] [address] Slip Maker Family Medicine 08/30/24 Auto Heater Mechanic Relationship Specialty Start Date End Date Sylvia Lizama MD [address] [facility] [place] [address] PCP - General Family Medicine 12/02/[place] [address] [place] [address] Referring Physical Medicine and Rehab 06/15/21 Chinyere Shea RN [address] [place] [address] Specialty Immigration Officer Hematology/Oncology 05/22/22 Enid Rod LISW [address] [place] [address] Registered Nurse Surgical Services Hematology/Oncology 07/15/22 Prince Fang MD [address] [place] [address] Hematology/Oncology 06/18/23 Ctr, [facility] [address] [place] [address] Optometry 08/25/23 Gini Ayala APRN.TIER IN [address] [place] [address] Slip Maker Family Medicine 08/30/24 Judith Pickard APRN.TIER IN [address] [place] [address] Slip Maker Family Medicine 08/30/24 Auto Heater Mechanic Relationship Specialty Start Date End Date Sylvia Lizama MD [address] [place] [address] PCP - General Family Medicine 12/02/[place] [address] [place], [place] 528[address] Referring Physical Medicine and Rehab 06/15/21 Chinyere Shea, FRANCESCO [address] [place] [address] Specialty Immigration Officer Hematology/Oncology 05/22/22 Enid Rod LISW [address] [place] [address] Registered Nurse Surgical Services Hematology/Oncology 07/15/22 Prince Fang MD [address] [place] [address] Hematology/Oncology 06/18/23 Ctr, [facility] [address] [place] [address] Optometry 08/25/23 Gini Ayala APRN.TIER IN [address] [place], [place] [address] Slip Maker Family Medicine 08/30/24 Judith Pickard APRN.TIER IN [address] [place], [place] [address] Slip Maker Family Medicine 08/30/24 Auto Heater Mechanic Relationship Specialty Start Date End Date Sylvia Lizama MD [address] [place], [place] [address] PCP - General Family Medicine 12/02/18 [place] [address] [place] [address] Referring Physical Medicine and Rehab 06/15/21 Chinyere Shea, FRANCESCO [address] [place] [address] Specialty Immigration Officer Hematology/Oncology 05/22/22 Enid Rod LISW [address] [place] [address] Registered Nurse Surgical Services Hematology/Oncology 07/15/22 Prince Fang MD [address] [place] [address] Hematology/Oncology 06/18/23 Ctr, [facility] [address] [place] [address] Optometry 08/25/23 Gini Ayala APRN.TIER IN [address] [place] [address] Slip Maker [facility] 08/30/24 Judith Pickard APRN.[facility] [address] [place] [address] [facility] 08/[facility] Team Status: Active Member [...] End: December 02, 2024 Christina Knox NP VEGETABLE WASHER-C Attending Provider Active Start: December 02, 2024 [...] End: December 15, 2024 Christina Knox NP VEGETABLE WASHER-C Attending Provider Active Start: December 15, 2024 [...] Provider Active Star t: April 01, 2025 Auto Heater Mechanic Relationship Specialty Start Date End Date Sylvia Lizama MD [address] [place], [place] [address] PCP - General Family Medicine 12/02/18 [place] [address] [place] [address] Referring Physical Medicine and Rehab 06/15/21 Chinyere Shea RN [address] [facility] [place] [address] Specialty Immigration Officer Hematology/Oncology 05/22/22 Enid Rod LISW [address] [place] [address] Registered Nurse Surgical Services Hematology/Oncology 07/15/22 Prince Fang MD [address] [place] [place] [address] Hematology/Oncology 06/18/23 Kirsten Monroy [address] [place] [address] Optometry 08/25/23 Gini Ayala APRN.TIER IN [address] [place] [address] Slip Maker Family Medicine 08/30/24 Judith Pickard APRN.[facility] [address] [place] [address] [facility] 08/30/24 Goals (unrecognized section and content) Goals [...] BE BASED ON THE PRIMARY CLINICAL RECORDS. [facility] [employer] [facility]. provides no warranty or guarantee of the accuracy or completeness of information in this document.
[2025-04-01] MEDS: Potassium Chloride Oral Tablet 10 MEQ PO (22:32)
[2025-04-01] MEDS: APIXABAN 5 MG TABLET PO (22:32)
[2025-04-02] VITALS (7 sets, daily range): BP systolic 103–144; BP diastolic 50–69; PULSE 59–76; RESP 14–18; TEMP 36.6–36.9; O2SAT 95–98
[2025-04-02 06:59] LABS: Cholesterol 176 mg/dL (<=200); Low Density Lipoprotein Calc. 109 mg/dL; Triglycerides 162 mg/dL; Very Low Density Lipoprotein 32 mg/dL (5-40); cholesterol:hdl ratio screen 5.13
--- NOTE | 2025-04-02 07:48 | PN.HOSP_ITS ---
Reason for Visit Reason for Visit: Diagnoses Dizziness and giddiness (04/01/25) Subjective Subjective Still with dizziness. Objective Data Objective Data Vital Signs: Vital Signs Temp Pulse Resp BP Pulse Ox O2 Del Method 36.9 C 60 18 109/50 L 95 Room Air 04/02/25 05:18 04/02/25 05:18 04/02/25 05:18 04/02/25 05:18 04/02/25 05:18 04/02/25 05:18 Oxygen Delivery Method Room Air Weight: 110.223 kg Body Mass Index (BMI) 44.4 Intake & Output: Intake and Output for Last 24 Hours 03/31/25 04/01/25 04/02/25 23:59 23:59 23:59 Output Total 600 / 600 Balance -600 / -600 Lab / Micro Data 04/01/25 14:25 04/01/25 14:25 Labs: Laboratory Results - last 24 hr 04/01/25 14:25: WBC 6.0, RBC 4.25, Hgb 13.4, Hct 41.1, MCV 96.7, MCH 31.5, MCHC 32.6, RDW Std Deviation 44.5 H, RDW Coeff of [place] 12.5, Plt Count 147 L, MPV 10.1, Immature Gran % (Auto) 0.200, Neut % (Auto) 62.6, Lymph % (Auto) 23.5, [place] % (Auto) 9.6, Eos % (Auto) 3.9, Baso % (Auto) 0.2, Absolute Neuts (auto) 3.7, Absolute Lymphs (auto) 1.40, Nucleated RBC % 0, PT 17.0 H, INR 1.4, APTT 32.1, Sodium 141, Potassium 4.2, Chloride 103, Carbon Dioxide 27.5, Anion Gap 11, BUN 14, Creatinine 0.91, Est GFR (MDRD) Non-Af 64, BUN/Creatinine Ratio 15.9, Glucose 107 H, Calcium 9.9, Troponin T High Sens 12 D 04/01/25 14:50: POC Glucose 109 H 04/01/25 17:15: Troponin T Hi Sens 2 Hr 11 04/02/25 01:13: POC Glucose 146 H 04/02/25 06:13: Triglycerides 162, Cholesterol 176, LDL Cholesterol, Calc 109, VLDL Cholesterol 32, HDL Cholesterol 34 L, Cholesterol/HDL Ratio 5.13 Radiography Diagnostic Testing: Radiology Impression Head/Neck CTA 04/01/25 15:00 IMPRESSION: 1. Widely patent intracranial and cervical arterial vasculature. 2. No evidence of acute intracranial pathology. 3. Mild volume loss and chronic microangiopathic changes. Reading Location: [facility] Brain MRI 04/01/25 17:40 IMPRESSION: No acute intracranial abnormality. Reading Location: [id number] Physical Exam Const alert and no apparent distress HEENT head/scalp atraumatic and moist oral mucous membranes Cardio regular rate, regular rhythm and S1 normal heart sound GI normal to inspection, nondistended, normoactive bowel sounds, soft to palpation, non-tender and non-distended Neuro Sensorium / Orientation: awake and alert Assessment & Plan Assessment/Plan (1) Vertigo: PLAN: Suspect this may be a more profound case of BPPV. No obvious effusions noted on otoscopic exam. Though this may be different than previous presentations of vertigo, this may very well be BPPV. MRI brain negative. Continue with as needed meclizine. PT OT evaluate and treat. PLAN: Plan Chronic conditions * CHRISTIANA: Continue CPAP available. * Obesity class III: Complicates care and recovery. * Hypertension: Continue with carvedilol * Hypothyroidism: Continue levothyroxine. * Depression: Continue with paroxetine. * Non-Hodgkin's lymphoma: Follow-up with oncology * History of DVT: Continue with apixaban. VTE prophylaxis: Not indicated as patient is already anticoagulated apixaban. CODE STATUS: Addressed with patient. Patient wishes to be full code. Charges/Coding Visit Charges Inpatient E&M: 94064 Subs Hosp L2 NIHSS NIHSS Nursing Documentation NIHSS Nursing Documentation: NIHSS: Ischemic Stroke/TIA Start: 04/01/25 19:46 Text: For ICU Patients: NIH sroke scale at Status: Complete presentation and every 2 hours or with change in RN caregiver Freq: [id number] Protocol: Activity Type Activity Date Activity User E-sign Co-sign Detail Recorded Client Recorded Date Recorded By Document 04/01/25 19:50 KW [id number] 04/01/25 19:59 KW 04/01/25 19:50 NIH Stroke Scale [NIHSS] A score of 0 is normal or asymptomatic . Total possible score is 42. Inpatient: RN or Physician to activate a stroke alert for onset of new stroke symptoms or with NIHSS increase >/= 3 points. Following change in neurological status, NIHSS will be performed per physician order or more frequently PRN. -1a. Level of Consciousness 0 - Alert; keenly responsive -1b. LOC Questions 0 - Answers BOTH questions correctly -1c. LOC Commands 0 - Performs BOTH tasks correctly -2. Best Gaze 0 - Normal -4. Facial Palsy 0 - Normal symmetrical movements -5a. Left Arm 0 - No drift; arm holds 90 ( or 45) degrees for full 10 seconds -5b. Right Arm 0 - No drift; arm holds 90 ( or 45) degrees for full 10 seconds -6a. Left Leg 0 - No drift; leg holds 30- degree position for full 5 seconds -6b. Right Leg 0 - No drift; leg holds 30- degree position for full 5 seconds -7. Limb Ataxia 0 - Absent -8. Sensory 0 - Normal; no sensory loss -9. Best Language 0 - No aphasia; normal -10. Dysarthria 0 - Normal -11. Extinction and Inattention 0 - No abnormality -Total 0 Query Text:A score of 0 is normal or asymptomatic. Total possible score is 42 . ED: Notify Physician for NIHSS increase by > / = 3 points. Inpatient: RN or Physician to activate a stroke alert for NIHSS increase of > / = 3 points. Coma Scale [Assess] -Eye Opening Spontaneous -Motor Obeys Commands -Verbal Oriented [Total] -Coma Scale Total 15
[2025-04-02] MEDS: APIXABAN 5 MG TABLET PO ×2 (09:06→21:17)
[2025-04-02] MEDS: Potassium Chloride Oral Tablet 10 MEQ PO ×2 (09:07→16:32)
--- NOTE | 2025-04-02 09:45 | CASEMGMT ---
Social Work Pt negative for stroke, therefore PHQ9 not completed. Roshan Bruno, APPLIED EXERCISE PHYSIOLOGIST
--- NOTE | 2025-04-02 13:50 | CASEMGMT ---
Therapy recommending HHC vs Outpatient Therapy at discharge. RN CM in to discuss options with patient. Patient states she would like to discuss with daughter on the phone. A list of HHC providers including quality and resource use data and consistent with the patient?s preferred geographical region, medical needs, and insurance network were provided from the [employer] Guide. Patient to review list with daughter. CM to follow up with patient after she discusses options with daughter.
--- NOTE | 2025-04-02 15:30 | CASEMGMT ---
FRANCESCO ELISE in to discuss discharge planning. Patient states she prefers to go home with [facility] and [facility] CM to make referral. RN ARIK explained to patient that patient is able to discharge over the weekend and CM will follow-up on Friday with C referral, patient voiced understanding and had no further questions.
[2025-04-02] MEDS: 0.9% Saline Lock 10 ML Syringe IV (16:32)
--- NOTE | 2025-04-02 16:33 | CASEMGMT ---
Social Work Referral made to [facility] for PT/OT via voice message. [facility] to follow up with RNCM on Friday for acceptance. EMERY Hsu
[2025-04-03 00:03] VITALS: BMI 44.4
[2025-04-03 03:15] VITALS: BP 145/66; PULSE 69; RESP 16; TEMP 36.9; O2SAT 95
--- NOTE | 2025-04-03 07:45 | PN.HOSP_ITS ---
Reason for Visit Reason for Visit: Diagnoses Dizziness and giddiness (04/01/25) Subjective Subjective Was able to work with therapy today and was able to walk out to the hallway and back. Did not have dizziness but feels like her dizziness is coming back. Headache overall is better as well as diffuse muscle aches. Objective Data Objective Data Vital Signs: Vital Signs Temp Pulse Resp BP Pulse Ox O2 Del Method 36.9 C 69 16 145/66 H 95 Room Air 04/03/25 03:15 04/03/25 03:15 04/03/25 03:15 04/03/25 03:15 04/03/25 03:15 04/03/25 03:15 Oxygen Delivery Method Room Air Weight: 110.223 kg Body Mass Index (BMI) 44.4 Intake & Output: Intake and Output for Last 24 Hours 04/01/25 04/02/25 04/03/25 23:59 23:59 23:59 Intake Total 775 / 895 120 / 120 Output Total 600 / 1000 750 / 750 Balance 175 / -105 -630 / -630 Lab / Micro Data 04/01/25 14:25 04/01/25 14:25 Radiography Diagnostic Testing: Radiology Impression Echocardiogram 04/01/25 17:40 Interpretation Summary The LV ejection fraction is 70 %. Left ventricular systolic function is hyperdynamic. Ordering Physician: Andrade Tapia Performed By: Lauren Villafana RDCS Physical Exam Const alert and no apparent distress HEENT head/scalp atraumatic and moist oral mucous membranes HEENT Narrative: Right lateral nystagmus that fatigues after about 2-3 beats. Resp normal respiratory effort, no retractions, no use of accessory muscles and clear to auscultation bilaterally Cardio regular rate, regular rhythm, S1 normal heart sound and S2 normal heart sound GI normal to inspection, nondistended, normoactive bowel sounds and soft to palpation Extremity normal to inspection Assessment & Plan Assessment/Plan (1) Vertigo: PLAN: Ongoing but improved. Suspect this may be a more profound case of BPPV. No obvious effusions noted on otoscopic exam. Though this may be different than previous presentations of vertigo, this may very well be BPPV. MRI brain negative. Continue with as needed meclizine. PT OT evaluate and treat. (2) Migraine headache: PLAN: Improved after 10mg of IV dexamethasone on 04/02. PLAN: Plan Chronic conditions * CHRISTIANA: Continue CPAP available. * Obesity class III: Complicates care and recovery. * Hypertension: Continue with carvedilol * Hypothyroidism: Continue levothyroxine. * Depression: Continue with paroxetine. * Non-Hodgkin's lymphoma: Follow-up with oncology * History of DVT: Continue with apixaban. VTE prophylaxis: Not indicated as patient is already anticoagulated apixaban. CODE STATUS: Addressed with patient. Patient wishes to be full code. Discussed with the patient's son at bedside. Charges/Coding Visit Charges Inpatient E&M: 64443 Subs Hosp L2 NIHSS NIHSS Nursing Documentation NIHSS Nursing Documentation: NIHSS: Ischemic Stroke/TIA Start: 04/01/25 19:46 Text: For ICU Patients: NIH sroke scale at Status: Complete presentation and every 2 hours or with change in RN caregiver Freq: [id number] Protocol: Activity Type Activity Date Activity User E-sign Co-sign Detail Recorded Client Recorded Date Recorded By Document 04/01/25 19:50 KW [id number] 04/01/25 19:59 KW 04/01/25 19:50 NIH Stroke Scale [NIHSS] A score of 0 is normal or asymptomatic . Total possible score is 42. Inpatient: RN or Physician to activate a stroke alert for onset of new stroke symptoms or with NIHSS increase >/= 3 points. Following change in neurological status, NIHSS will be performed per physician order or more frequently PRN. -1a. Level of Consciousness 0 - Alert; keenly responsive -1b. LOC Questions 0 - Answers BOTH questions correctly -1c. LOC Commands 0 - Performs BOTH tasks correctly -2. Best Gaze 0 - Normal -4. Facial Palsy 0 - Normal symmetrical movements -5a. Left Arm 0 - No drift; arm holds 90 ( or 45) degrees for full 10 seconds -5b. Right Arm 0 - No drift; arm holds 90 ( or 45) degrees for full 10 seconds -6a. Left Leg 0 - No drift; leg holds 30- degree position for full 5 seconds -6b. Right Leg 0 - No drift; leg holds 30- degree position for full 5 seconds -7. Limb Ataxia 0 - Absent -8. Sensory 0 - Normal; no sensory loss -9. Best Language 0 - No aphasia; normal -10. Dysarthria 0 - Normal -11. Extinction and Inattention 0 - No abnormality -Total 0 Query Text:A score of 0 is normal or asymptomatic. Total possible score is 42 . ED: Notify Physician for NIHSS increase by > / = 3 points. Inpatient: RN or Physician to activate a stroke alert for NIHSS increase of > / = 3 points. Coma Scale [Assess] -Eye Opening Spontaneous -Motor Obeys Commands -Verbal Oriented [Total] -Coma Scale Total 15
[2025-04-03 08:40] VITALS: BP 154/76; PULSE 73; RESP 17; TEMP 36.5; O2SAT 97
[2025-04-03] MEDS: Potassium Chloride Oral Tablet 10 MEQ PO ×2 (08:45→18:08)
[2025-04-03 10:04] VITALS: PULSE 73
[2025-04-03] MEDS: APIXABAN 5 MG TABLET PO ×2 (10:04→21:35)
[2025-04-03 14:32] VITALS: BP 118/58; PULSE 74; RESP 17; TEMP 36.7; O2SAT 98
[2025-04-03 16:02] VITALS: BMI 44.4
[2025-04-03 18:06] VITALS: BP 132/71; PULSE 77; RESP 18; TEMP 36.5; O2SAT 97
[2025-04-03 21:35] VITALS: BP 123/53; PULSE 64; RESP 16; TEMP 36.7; O2SAT 97
[2025-04-03 23:16] VITALS: BMI 44.4
[2025-04-04] VITALS (7 sets, daily range): BP systolic 84–139; BP diastolic 43–54; PULSE 57–66; RESP 15–18; TEMP 36.4–37; O2SAT 97–99; BMI 44.4
--- NOTE | 2025-04-04 08:09 | PCM.PN.HOSP ---
Reason for Visit Chief Complaint: Vertigo and diplopia. Subjective Subjective Headache off and on. But overall improved. Improved dizziness overall. Had some intense pain in her right neck and felt like there was a lump in her neck on the right side. Has since resolved. Objective Data Objective Data Vital Signs: Vital Signs Temp Pulse Resp BP Pulse Ox O2 Del Method 36.4 C L 57 L 16 139/52 H 98 Room Air 04/04/25 03:35 04/04/25 03:35 04/04/25 03:35 04/04/25 03:35 04/04/25 03:35 04/04/25 03:35 Oxygen Delivery Method Room Air Weight: 110.223 kg Body Mass Index (BMI) 44.4 Intake & Output: Intake and Output for Last 24 Hours 04/02/25 04/03/25 04/04/25 23:59 23:59 23:59 Intake Total 775 / 895 1010 / 1010 200 / 200 Output Total 600 / 1000 1650 / 1650 250 / 250 Balance 175 / -105 -640 / -640 -50 / -50 Lab / Micro Data 04/01/25 14:25 04/01/25 14:25 Physical Exam Const alert and no apparent distress Constitutional Narrative: Up in chair. Nontoxic. Neck Neck Narrative: No lymphadenopathy. The right sternocleidomastoid palpates more taut than the left. Resp normal respiratory effort and no retractions Cardio regular rate, regular rhythm, S1 normal heart sound and S2 normal heart sound GI normal to inspection, nondistended, normoactive bowel sounds, soft to palpation, non-tender and non-distended Extremity normal to inspection and full ROM Neuro Sensorium / Orientation: awake and alert Assessment & Plan Assessment/Plan (1) Vertigo: PLAN: Ongoing but improved. Suspect this may be a more profound case of BPPV. No obvious effusions noted on otoscopic exam. Though this may be different than previous presentations of vertigo, this may very well be BPPV. MRI brain negative. Continue with as needed meclizine. PT OT evaluate and treat. (2) Migraine headache: PLAN: Improved after 10mg of IV dexamethasone on 04/02. PLAN: Plan Chronic conditions CHRISTIANA: Continue CPAP available. Obesity class III: Complicates care and recovery. Hypertension: Continue with carvedilol Hypothyroidism: Continue levothyroxine. Depression: Continue with paroxetine. Non-Hodgkin's lymphoma: Follow-up with oncology History of DVT: Continue with apixaban. VTE prophylaxis: Not indicated as patient is already anticoagulated apixaban. CODE STATUS: Addressed with patient. Patient wishes to be full code. DC home with [facility]. NIHSS NIHSS Nursing Documentation NIHSS Nursing Documentation: NIHSS: Ischemic Stroke/TIA Start: 04/01/25 19:46 Text: For ICU Patients: NIH sroke scale at Status: Complete presentation and every 2 hours or with change in RN caregiver Freq: [id number] Protocol: Activity Type Activity Date Activity User E-sign Co-sign Detail Recorded Client Recorded Date Recorded By Document 04/01/25 19:50 [id number] 04/01/25 19:59 KW 04/01/25 19:50 NIH Stroke Scale [NIHSS] A score of 0 is normal or asymptomatic . Total possible score is 42. Inpatient: RN or Physician to activate a stroke alert for onset of new stroke symptoms or with NIHSS increase >/= 3 points. Following change in neurological status, NIHSS will be performed per physician order or more frequently PRN. -1a. Level of Consciousness 0 - Alert; keenly responsive -1b. LOC Questions 0 - Answers BOTH questions correctly -1c. LOC Commands 0 - Performs BOTH tasks correctly -2. Best Gaze 0 - Normal -4. Facial Palsy 0 - Normal symmetrical movements -5a. Left Arm 0 - No drift; arm holds 90 ( or 45) degrees for full 10 seconds -5b. Right Arm 0 - No drift; arm holds 90 ( or 45) degrees for full 10 seconds -6a. Left Leg 0 - No drift; leg holds 30- degree position for full 5 seconds -6b. Right Leg 0 - No drift; leg holds 30- degree position for full 5 seconds -7. Limb Ataxia 0 - Absent -8. Sensory 0 - Normal; no sensory loss -9. Best Language 0 - No aphasia; normal -10. Dysarthria 0 - Normal -11. Extinction and Inattention 0 - No abnormality -Total 0 Query Text:A score of 0 is normal or asymptomatic. Total possible score is 42 . ED: Notify Physician for NIHSS increase by > / = 3 points. Inpatient: RN or Physician to activate a stroke alert for NIHSS increase of > / = 3 points. Coma Scale [Assess] -Eye Opening Spontaneous -Motor Obeys Commands -Verbal Oriented [Total] -Coma Scale Total 15
[2025-04-04] MEDS: APIXABAN 5 MG TABLET PO ×2 (09:03→21:28)
[2025-04-04] MEDS: Potassium Chloride Oral Tablet 10 MEQ PO ×2 (09:04→15:47)
--- NOTE | 2025-04-04 11:45 | DS.PCM_ITS ---
Providers Date of Admission: 04/01/25 Primary Care Physician: Dr. Ever Kilgore MD Reason For Visit: VERTIGO DIPLOPIA Diagnosis Discharge Diagnosis (1) Vertigo: Status: Acute Code(s): R42 - Dizziness and giddiness Plan: Ongoing but improved. Suspect this may be a more profound case of BPPV. No obvious effusions noted on otoscopic exam. Though this may be different than previous presentations of vertigo, this may very well be BPPV. MRI brain negative. Continue with as needed meclizine. PT OT evaluate and treat. (2) Migraine headache: Status: Chronic Code(s): G43.909 - Migraine, unspecified, not intractable, without status migrainosus Plan: Improved after 10mg of IV dexamethasone on 04/02. Plan Chronic conditions * CHRISTIANA: Continue CPAP available. * Obesity class III: Complicates care and recovery. * Hypertension: Continue with carvedilol * Hypothyroidism: Continue levothyroxine. * Depression: Continue with paroxetine. * Non-Hodgkin's lymphoma: Follow-up with oncology * History of DVT: Continue with apixaban. VTE prophylaxis: Not indicated as patient is already anticoagulated apixaban. CODE STATUS: Addressed with patient. Patient wishes to be full code. DC home with [facility]. Medications at Discharge Home Medications potassium chloride 10 mEq tablet,extended release(part/cryst) 10 meq PO BID supplement 06/07/18 multivitamin with folic acid 400 mcg tablet (Thera) 1 tab PO DAILY vitamin 08/01/18 apixaban 5 mg tablet 5 mg PO BID blood thinner 08/13/20 levothyroxine 75 mcg tablet 75 mcg PO DAILY thyroid 07/30/22 carvedilol 25 mg tablet 25 mg PO BID blood pressure 03/24/24 gabapentin 400 mg capsule 400 mg PO BID nerve pain 03/24/24 hydralazine 50 mg tablet 50 mg PO BID blood pressure 03/24/24 clonidine HCl 0.1 mg tablet 0.1 mg PO BID bp 30 days #60 tabs 03/26/24 losartan 100 mg tablet 100 mg PO DAILY bp 07/04/24 meclizine 25 mg tablet 25 mg PO TID PRN dizziness 07/04/24 omeprazole 20 mg capsule,delayed release 20 mg PO DAILY PRN acid reflux 07/04/24 albuterol sulfate 90 mcg/actuation aerosol inhaler (Ventolin HFA) 2 puff inhalation Q4H PRN Wheezing 11/26/24 acetaminophen 325 mg tablet 1,000 mg (3.0769 x 325 mg) PO Q8H PRN PRN Pain 1-10 Or Fever>100.7 #0 tabs 04/04/25 Hospital Course Operations None Procedures None Weight / BMI Weight Weight: 110.223 kg Body Mass Index (BMI) 44.4 ABG / Lab / Microbiology Data 04/01/25 14:25 04/01/25 14:25 D/C Instructions DC O2, CPAP, BIPAP Needs Home O2 Discharge instructions: No Meaningful Use Info Meaningful Use Meaningful Use Diagnoses (Choose all that apply): None applicable Discharge Plan Admission Admit Date/Time: 04/01/25 17:35 Primary Reason for Your Visit: Vertigo Attending Provider: Andrade Tapia Primary Care Provider: Ever Kilgore Discharge Orders/Prescriptions Prescriptions: New acetaminophen 325 mg Tablet 1,000 mg PO Q8H PRN PRN (Reason: Pain 1-10 Or Fever>100.7) Qty: 0 0RF Continued potassium chloride 10 MEQ tablet 10 meq PO BID multivitamin with folic acid [Thera] 1 TABLET tablet 1 tab PO DAILY apixaban 5 MG tablet 5 mg PO BID levothyroxine 75 mcg Tablet 75 mcg PO DAILY carvedilol 25 mg tablet 25 mg PO BID gabapentin 400 mg capsule 400 mg PO BID hydralazine 50 mg tablet 50 mg PO BID Patient Comments: PT STATES HER DR SAID IF HER BLOOD PRESSURE IS HIGH, TAKE AN EXTRA DOSE. clonidine HCl 0.1 mg Tablet 0.1 mg PO BID 30 Days Qty: 60 0RF albuterol sulfate [Ventolin HFA] 90 mcg/actuation HFA aerosol inhaler 2 puff inhalation Q4H PRN (Reason: Wheezing) Rx Instructions: with spacer omeprazole 20 mg capsule,delayed release(DR/EC) 20 mg PO DAILY PRN (Reason: acid reflux) meclizine 25 mg tablet 25 mg PO TID PRN (Reason: dizziness) Patient Comments: PT STATES SHE SHOULD TAKE THIS BUT DOESN'T, ONLY IF SHE IS DIZZY. losartan 100 mg tablet 100 mg PO DAILY Discontinued paroxetine HCl 10 mg tablet 10 mg PO DAILY Referrals / Follow Up: Ever Kilgore MD [Primary Care Provider] - Within 2 Weeks Disposition Disposition (needs filled in before D/C Order can be placed): Home Health Service Charges/Coding Visit Charges Inpatient E&M: 82907 Disch Hosp
--- NOTE | 2025-04-04 12:58 | CASEMGMT ---
FRANCESCO ELISE received call back from [facility] and they are not able to accept patient has she does not have a qualifying diagnosis for [facility] PT/OT. FRANCESCO ELISE in to discuss with patient and updated that her diagnosis does not qualify for [facility] therapy. FRANCESCO ELISE offered Outpatient therapy at discharge. Patient states she is dizzy again and does not feel she can go home and would not be able to drive to outpatient therapy. FRANCESCO ELISE informed patient that she would update her nurse. FRANCESCO ELISE updated nursing regarding increased dizziness, nurse to update hospitalist. FRANCESCO ELISE called therapy and requested treatment to assist with ambulation and discharge recommendations. CM will continue to follow this patient and plan for a safe discharge.
[2025-04-05 04:43] VITALS: BP 105/53; PULSE 54; RESP 16; TEMP 36.6; O2SAT 98
[2025-04-05 06:40] VITALS: O2SAT 93
[2025-04-05 08:11] VITALS: BP 113/52; PULSE 55; RESP 17; TEMP 36.6; O2SAT 96
[2025-04-05] MEDS: APIXABAN 5 MG TABLET PO (08:20)
[2025-04-05] MEDS: Potassium Chloride Oral Tablet 10 MEQ PO (08:21)
--- NOTE | 2025-04-05 08:30 | PN.HOSP_ITS ---
Reason for Visit Chief Complaint: Vertigo and diplopia. Subjective Subjective Still feeling dizzy but better overall. Objective Data Objective Data Vital Signs: Vital Signs Temp Pulse Resp BP Pulse Ox O2 Del Method 36.6 C 55 L 17 113/52 L 96 Room Air 04/05/25 08:11 04/05/25 08:11 04/05/25 08:11 04/05/25 08:11 04/05/25 08:11 04/05/25 08:11 Oxygen Delivery Method Room Air Weight: 110.223 kg Body Mass Index (BMI) 44.4 Intake & Output: Intake and Output for Last 24 Hours 04/03/25 04/04/25 04/05/25 23:59 23:59 23:59 Intake Total 1010 / 1010 600 / 600 Output Total 1650 / 1650 250 / 1050 1000 / 1000 Balance -640 / -640 350 / -450 -1000 / -1000 Lab / Micro Data 04/01/25 14:25 04/01/25 14:25 Physical Exam Const alert and no apparent distress HEENT head/scalp atraumatic and moist oral mucous membranes Resp normal respiratory effort, no retractions, no use of accessory muscles and clear to auscultation bilaterally Cardio regular rate, regular rhythm, S1 normal heart sound and S2 normal heart sound GI normal to inspection, nondistended, normoactive bowel sounds, soft to palpation and non-tender Extremity normal to inspection Neuro Sensorium / Orientation: awake and alert Assessment & Plan Assessment/Plan (1) Vertigo: PLAN: Ongoing but improved. Secondary to hypotension, possibly orthostatic hypotension. Patient was notably hypotensive and did make adjustments to her medications and seems to be improved. Did check orthostats today and that is negative. MRI brain negative. Continue with as needed meclizine. PT OT evaluate and treat. (2) Migraine headache: PLAN: Improved after 10mg of IV dexamethasone on 04/02. PLAN: Plan Chronic conditions * CHRISTIANA: Continue CPAP available. * Obesity class III: Complicates care and recovery. * Hypertension: Continue with carvedilol * Hypothyroidism: Continue levothyroxine. * Depression: Continue with paroxetine. * Non-Hodgkin's lymphoma: Follow-up with oncology * History of DVT: Continue with apixaban. VTE prophylaxis: Not indicated as patient is already anticoagulated apixaban. CODE STATUS: Addressed with patient. Patient wishes to be full code. DC home with [facility]. Waiting on urinalysis Charges/Coding Visit Charges Inpatient E&M: 68025 Subs Hosp L2 NIHSS NIHSS Nursing Documentation NIHSS Nursing Documentation: NIHSS: Ischemic Stroke/TIA Start: 04/01/25 19:46 Text: For ICU Patients: NIH sroke scale at Status: Complete presentation and every 2 hours or with change in RN caregiver Freq: [id number] Protocol: Activity Type Activity Date Activity User E-sign Co-sign Detail Recorded Client Recorded Date Recorded By Document 04/01/25 19:50 KW [id number] 04/01/25 19:59 KW 04/01/25 19:50 NIH Stroke Scale [NIHSS] A score of 0 is normal or asymptomatic . Total possible score is 42. Inpatient: RN or Physician to activate a stroke alert for onset of new stroke symptoms or with NIHSS increase >/= 3 points. Following change in neurological status, NIHSS will be performed per physician order or more frequently PRN. -1a. Level of Consciousness 0 - Alert; keenly responsive -1b. LOC Questions 0 - Answers BOTH questions correctly -1c. LOC Commands 0 - Performs BOTH tasks correctly -2. Best Gaze 0 - Normal -4. Facial Palsy 0 - Normal symmetrical movements -5a. Left Arm 0 - No drift; arm holds 90 ( or 45) degrees for full 10 seconds -5b. Right Arm 0 - No drift; arm holds 90 ( or 45) degrees for full 10 seconds -6a. Left Leg 0 - No drift; leg holds 30- degree position for full 5 seconds -6b. Right Leg 0 - No drift; leg holds 30- degree position for full 5 seconds -7. Limb Ataxia 0 - Absent -8. Sensory 0 - Normal; no sensory loss -9. Best Language 0 - No aphasia; normal -10. Dysarthria 0 - Normal -11. Extinction and Inattention 0 - No abnormality -Total 0 Query Text:A score of 0 is normal or asymptomatic. Total possible score is 42 . ED: Notify Physician for NIHSS increase by > / = 3 points. Inpatient: RN or Physician to activate a stroke alert for NIHSS increase of > / = 3 points. Coma Scale [Assess] -Eye Opening Spontaneous -Motor Obeys Commands -Verbal Oriented [Total] -Coma Scale Total 15
[2025-04-05 10:04] VITALS: BP 104/54; BP 109/66; BP 97/43; PULSE 59; PULSE 62; PULSE 66
[2025-04-05 14:00] VITALS: BP 104/48; PULSE 65; RESP 18; TEMP 36.7; O2SAT 97
--- NOTE | 2025-04-05 15:06 | DS.PCM_ITS ---
Providers Date of Admission: 04/01/25 Primary Care Physician: Dr. Ever Kilgore MD Reason For Visit: VERTIGO DIPLOPIA Diagnosis Discharge Diagnosis (1) Vertigo: Status: Acute Code(s): R42 - Dizziness and giddiness Plan: Ongoing but improved. Secondary to hypotension, possibly orthostatic hypotension. Patient was notably hypotensive and did make adjustments to her medications and seems to be improved. Did check orthostats today and that is negative. MRI brain negative. Continue with as needed meclizine. PT OT evaluate and treat. (2) Migraine headache: Status: Chronic Code(s): G43.909 - Migraine, unspecified, not intractable, without status migrainosus Plan: Improved after 10mg of IV dexamethasone on 04/02. Plan Chronic conditions * CHRISTIANA: Continue CPAP available. * Obesity class III: Complicates care and recovery. * Hypertension: Continue with carvedilol * Hypothyroidism: Continue levothyroxine. * Depression: Continue with paroxetine. * Non-Hodgkin's lymphoma: Follow-up with oncology * History of DVT: Continue with apixaban. VTE prophylaxis: Not indicated as patient is already anticoagulated apixaban. CODE STATUS: Addressed with patient. Patient wishes to be full code. DC home Medications at Discharge Home Medications multivitamin with folic acid 400 mcg tablet (Thera) 1 tab PO DAILY vitamin 08/01/18 apixaban 5 mg tablet 5 mg PO BID blood thinner 08/13/20 levothyroxine 75 mcg tablet 75 mcg PO DAILY thyroid 07/30/22 carvedilol 25 mg tablet 25 mg PO BID blood pressure 03/24/24 gabapentin 400 mg capsule 400 mg PO BID nerve pain 03/24/24 meclizine 25 mg tablet 25 mg PO TID PRN dizziness 07/04/24 omeprazole 20 mg capsule,delayed release 20 mg PO DAILY PRN acid reflux 07/04/24 albuterol sulfate 90 mcg/actuation aerosol inhaler (Ventolin HFA) 2 puff inhalation Q4H PRN Wheezing 11/26/24 acetaminophen 325 mg tablet 1,000 mg (3.0769 x 325 mg) PO Q8H PRN PRN Pain 1-10 Or Fever>100.7 #0 tabs 04/04/25 losartan 25 mg tablet 25 mg PO DAILY #30 tabs 04/05/25 Hospital Course Operations None Procedures None Summary of Care Provided Minutes Spent on Discharge: 32 Weight / BMI Weight Weight: 110.223 kg Body Mass Index (BMI) 44.4 ABG / Lab / Microbiology Data 04/01/25 14:25 04/01/25 14:25 D/C Instructions DC O2, CPAP, BIPAP Needs Home O2 Discharge instructions: No Meaningful Use Info Meaningful Use Meaningful Use Diagnoses (Choose all that apply): None applicable Discharge Plan Admission Admit Date/Time: 04/01/25 17:35 Primary Reason for Your Visit: Vertigo Attending Provider: Andrade Tapia Primary Care Provider: Ever Kilgore Instructions Additional Instructions / Restrictions: You had dizziness. She was thought to be due to your vertigo but appears to be more related with your blood pressure medications as the blood pressure medications may have caused her pressure to go too low causing feel dizzy. We have stopped your clonidine, hydralazine. Also decrease your losartan from 100- 25 daily. You may continue the carvedilol at the previous dose. If you are having ongoing issues with dizziness or passing out, notify your physician or return to the emergency room. Discharge Orders/Prescriptions Prescriptions: New acetaminophen 325 mg Tablet 1,000 mg PO Q8H PRN PRN (Reason: Pain 1-10 Or Fever>100.7) Qty: 0 0RF losartan 25 mg tablet 25 mg PO DAILY Qty: 30 0RF Continued multivitamin with folic acid [Thera] 1 TABLET tablet 1 tab PO DAILY apixaban 5 MG tablet 5 mg PO BID levothyroxine 75 mcg Tablet 75 mcg PO DAILY carvedilol 25 mg tablet 25 mg PO BID gabapentin 400 mg capsule 400 mg PO BID albuterol sulfate [Ventolin HFA] 90 mcg/actuation HFA aerosol inhaler 2 puff inhalation Q4H PRN (Reason: Wheezing) Rx Instructions: with spacer omeprazole 20 mg capsule,delayed release(DR/EC) 20 mg PO DAILY PRN (Reason: acid reflux) meclizine 25 mg tablet 25 mg PO TID PRN (Reason: dizziness) Patient Comments: PT STATES SHE SHOULD TAKE THIS BUT DOESN'T, ONLY IF SHE IS DIZZY. Discontinued potassium chloride 10 MEQ tablet 10 meq PO BID paroxetine HCl 10 mg tablet 10 mg PO DAILY hydralazine 50 mg tablet 50 mg PO BID Patient Comments: PT STATES HER DR SAID IF HER BLOOD PRESSURE IS HIGH, TAKE AN EXTRA DOSE. clonidine HCl 0.1 mg Tablet 0.1 mg PO BID 30 Days Qty: 60 0RF losartan 100 mg tablet 100 mg PO DAILY Referrals / Follow Up: Ever Kilgore MD [Primary Care Provider] - 04/11/25 2:40 pm (Appointment is with Gini Ulloa N.P.) Disposition Disposition (needs filled in before D/C Order can be placed): Home Health Service Charges/Coding Visit Charges Inpatient E&M: 36455 Disch Hosp >30min
--- NOTE | 2025-04-05 15:30 | CASEMGMT ---
Patient has order for discharge. FRANCESCO ELISE discussed progress with therapy. Patient does not qualify for [facility]. FRANCESCO ELISE discussed outpatient therapy with patient, patient declines outpatient therapy at this time. FRANCESCO ELISE informed patient that should patient reconsider outpatient therpay to follow-up with PCP. Patient voiced understanding and provided patient with [facility] information. Patient had no further questions or concerns.
[2025-04-05 15:39] VITALS: BMI 44.4
[2025-04-05 16:23] VITALS: BP 120/56; PULSE 64; RESP 17; TEMP 36.7; O2SAT 98
== END 2025-04-05 16:40 | disposition home or self-care (01) | DRG 312 ==
LOC: ED 17:05 → PCU 17:23
PROVIDERS: Emergency Provider Emergency Medicine; PCP Family Medicine
DX: I95.1 Orthostatic hypotension (principal); C85.90 Non-Hodgkin lymphoma, unspecified, unspecified site; Z68.41 Body mass index [BMI] 40.0-44.9, adult; E03.9 Hypothyroidism, unspecified; I10 Essential (primary) hypertension; F32.A Depression, unspecified; G47.33 Obstructive sleep apnea (adult) (pediatric); G43.909 Migraine, unspecified, not intractable, without status migrainosus; G62.9 Polyneuropathy, unspecified; E66.813 Obesity, class 3; Z79.51 Long term (current) use of inhaled steroids; Z79.01 Long term (current) use of anticoagulants; Z79.899 Other long term (current) drug therapy; Z86.718 Personal history of other venous thrombosis and embolism
CPT/HCPCS: 36415; 70496; 70498; 70551; 80048; 80061; 82962; 84484; 85025; 85610; 85730; 93005; 93306; 97116; 97162; 97166; 97530; 97535; 97802; 99284; Q9957; Q9967; A4216; C8929

== ENCOUNTER 2025-05-15 14:48 | Emergency (ER) | payer MEDICARE, OTHER, SELFPAY ==
[2025-05-15] VITALS (8 sets, daily range): BP systolic 114–210; BP diastolic 55–95; PULSE 52–60; RESP 11–18; TEMP 36.5–36.6; O2SAT 96–99; BMI 47.2
--- NOTE | 2025-05-15 15:01 | EKG12_ITS ---
Test Reason : Blood Pressure : */* mmHG Vent. Rate : 54 BPM Atrial Rate : 54 BPM P-R Int : 180 ms QRS Dur : 86 ms QT Int : 446 ms P-R-T Axes : 41 -7 59 degrees QTcB Int : 422 ms Sinus bradycardia Minimal voltage criteria for LVH, may be normal variant ( R in aVL ) Borderline ECG Confirmed by NANETTE ROMERO, ROQUE ([id number]), makeup editor DARIEN SALMERON ([id number]) on 05/16/2025 1:09:43 PM Referred By: Confirmed By: ROQUE FITZPATRICK MD
--- NOTE | 2025-05-15 15:01 | CT_ITS ---
PROCEDURE: BRAIN/HEAD WITHOUT CONTRAST 05/15/2025 REASON FOR EXAM: AMS TECHNIQUE: BRAIN/HEAD WITHOUT CONTRAST Coronal and Sagittal reconstruction series were provided. One or more dose reduction techniques were used (e.g., Automated exposure control, adjustment of the mA and/or kV according to patient size, use of iterative reconstruction technique. RADIATION DOSE SUMMARY: CTDlvol: 44.99 mGy DLP: 812.98 mGycm COMPARISON: MRI from 04/01/2020 FINDINGS: Age consistent atrophic, periventricular, and deep white matter changes, no acute hemorrhage, midline shift, or mass effect. No skull fracture or scalp hematoma. Paranasal sinusitis is noted No skull fracture or scalp hematoma CT/Brain/Head without Contrast IMPRESSION: Age consistent changes, no acute findings Reading Location: [id number]
--- NOTE | 2025-05-15 15:04 | EX.ED.DYSGE1 ---
HPI History of Present Illness Chief Complaint: Dizziness Narrative Narrative: Patient is 79-year-old female with past medical history of hypertension, GERD, CHRISTIANA, DVT on Eliquis, non-Hodgkin's lymphoma, hypertension who presents to the emergency department with chief complaint of generalized weakness not feeling well. She states that she has not felt well for over a week now. According to pain members at bedside they note that they recently made a adjustment to her medications and ever since then she has not been feeling well. States that yesterday she was in bed all day as she felt off and extremely weak. She states that she does not however describe it her symptoms that she is feeling. She states that she is not dizzy but feels like it is [id number] in her head. Patient states that she is afraid to get up as she feels like she will fall. [facility] Medical History Elevated blood pressure reading with diagnosis of hypertension Hypertension Morbid obesity Restless leg syndrome Neuropathy Lumbar radiculopathy Cervical spinal stenosis Lumbar spinal stenosis History of migraine GERD (gastroesophageal reflux disease) CHRISTIANA (obstructive sleep apnea) Osteoarthritis DVT (deep venous thrombosis) Post-menopausal Dyspnea History of stress test Ovarian tumor Anticoagulant long-term use Non Hodgkin's lymphoma Dehiscence of surgical wound GERD (gastroesophageal reflux disease) Restless leg syndrome Peripheral neuropathy Osteoarthritis Hypertension Home Medications ?Medication ?Instructions ?Recorded ?Last Taken ?Type multivitamin with folic acid 400 1 tab PO DAILY vitamin 08/01/18 11/25/24 History mcg tablet (Thera) apixaban 5 mg tablet 5 mg PO BID blood thinner 08/13/20 11/25/24 History levothyroxine 75 mcg tablet 75 mcg PO DAILY thyroid 07/30/22 11/25/24 History carvedilol 25 mg tablet 25 mg PO BID blood pressure 03/24/24 11/25/24 History gabapentin 400 mg capsule 400 mg PO BID nerve pain 03/24/24 11/25/24 History meclizine 25 mg tablet 25 mg PO TID PRN dizziness 07/04/24 Unknown History omeprazole 20 mg capsule,delayed 20 mg PO DAILY PRN acid reflux 07/04/24 11/25/24 History release albuterol sulfate 90 mcg/actuation 2 puff inhalation Q4H PRN Wheezing 11/26/24 11/25/24 History aerosol inhaler (Ventolin HFA) acetaminophen 325 mg tablet 1,000 mg (3.0769 x 325 mg) PO Q8H 04/04/25 Unknown Rx PRN PRN Pain 1-10 Or Fever>100.7 #0 tabs clonidine HCl 0.1 mg tablet 0.1 mg PO BID 05/15/25 Unknown History losartan 100 mg tablet 100 mg PO DAILY 05/15/25 Unknown History spironolactone 25 mg tablet 25 mg PO DAILY 05/15/25 Unknown History Allergy/AdvReac Type Severity Reaction Status Date / Time COVID-19 vaccine, mRNA, Allergy Anaphylaxis Verified 05/15/25 14:57 [id number], erythromycin base Allergy Rash Verified 05/15/25 14:57 (Erythromycin Base) lisinopril Allergy Swelling Verified 05/15/25 14:57 venom-wasp (wasp) Allergy NEEDS Verified 05/15/25 14:57 FOLLOW-UP amlodipine AdvReac Swelling Verified 05/15/25 14:57 latex AdvReac Swelling Verified 05/15/25 14:57 Family History Mother Hypertension Surgical History S/P laparoscopic cholecystectomy S/P hysterectomy H/O laminectomy History of partial nephrectomy History of tonsillectomy History of total knee arthroplasty History of total abdominal hysterectomy Social History Smoking Status: Never smoker ROS ROS ED ROS Narrative Constitutional: Denies any fevers, chills, headaches Eyes: Denies double vision blurry vision Cardiovascular: Denies chest pain Respiratory: Denies shortness of breath Abdomen: Denies abdominal pain nausea vomit diarrhea : Denies any urinary symptoms Neurological: Complains of weakness denies any numbness, , tingling Musculoskeletal: Denies back pain Skin: Denies any rashes or lesions EXAM Physical Exam Narrative Exam Narrative: General: Patient was lying in bed rest comfortably did not appear to be acute distress Head: Atraumatic, normocephalic Eyes: PERRL bilaterally, EOMI bilateral, no conjunctival injection noted Neck: Soft, supple, trachea midline Cardiovascular: Patient bradycardic with a regular rhythm Respiratory: Clear to auscultation bilaterally Abdomen: Soft, nondistended, nontender to palpation Extremities: +4/5 strength noted in the bilateral upper and lower extremities, radial pulses +2/4 and about extremities, no pedal edema no exam Neurological: Patient follow commands knew that she was at the hospital the year is 2024. NIH of 0 GCS 15. Patient completed finger-nose test bilaterally without any difficulty. Skin: Warm, dry, intact no rashes or lesions noted Const Vital Signs: 05/15/25 14:50 05/15/25 15:46 05/15/25 15:46 Temperature 97.7 F L Temperature Source Oral Pulse Rate 58 L Respiratory Rate 18 Respiratory Effort Normal Non-Labored Respiratory Pattern Normal Blood Pressure 114/55 L Blood Pressure Mean 74 Pulse Ox 97 Oxygen Delivery Method Room Air Room Air 05/15/25 16:54 05/15/25 18:00 05/15/25 20:00 Temperature Temperature Source Pulse Rate 52 L 52 L 60 Respiratory Rate 15 11 L 18 Respiratory Effort Respiratory Pattern Blood Pressure 191/94 H 205/92 H Blood Pressure Mean 126 129 Pulse Ox 97 97 97 Oxygen Delivery Method Room Air 05/15/25 20:05 05/15/25 22:00 Temperature Temperature Source Pulse Rate 60 Respiratory Rate 18 Respiratory Effort Respiratory Pattern Blood Pressure 210/90 H 147/77 H Blood Pressure Mean 130 100 Pulse Ox 99 Oxygen Delivery Method Room Air MDM MDM MDM Narrative Medical decision making narrative: Patient is 79-year-old female who presents to the emergency department the chief complaint of generalized weakness and not acting her normal self. On the differential diagnosis includes but not limited to intracranial hemorrhage, electrolyte abnormality, orthostatic hypotension, UTI, pneumonia. Once the workup is obtained and reviewed she will be reevaluated. Patient is not a tenecteplase candidate as her last known well was not clear and she has no specific neurologic deficits noted on exam. Patient CBC reviewed showed no evidence leukocytosis white blood count normal 5.5, he was 12.9, platelet count of 141. Patient's INR normal at 1.4, PT of 17.1 is on Eliquis. Patient sodium normal 139, potassium normal 4.4, creatinine was 1.01. Patient AST and ALT are 21 and 8 respectively. Patient's troponin was 15 with delta troponin of 15 and a 4-hour troponin of 16. Patient's urinalysis did not show any evidence of infection. Patient EKG was reviewed showed sinus bradycardia with a rate of 54 bpm with a UT interval 180. Patient's chest x-ray reviewed by myself by radiology showed no acute cardiopulmonary processes. Patient CT head brain without contrast showed no acute findings age consistent changes. Patient was hypertensive in the emergency department and was refusing take clonidine therefore she was given hydralazine and had improvement of her blood pressure she still has not taken her nighttime meds yet this evening. Patient ambulated well here in the emergency department at her baseline no difficulty. I did review her recent full workup including brain MRI CTA head and neck from April 01, 2025 which showed no acute findings at that point in time. Her echocardiogram was also reviewed which showed ejection fraction of 70% with no regional wall motion abnormalities noted. Did discuss case with hospitalist and they feel that if she is at her baseline she does not require admission at this point in time given her most recent workup and symptoms today. Discussed this plan with the patient and family members at bedside they are agreeable they would like to take her home. They advised to follow-up with her primary care physician outpatient setting. And return with worsening symptoms any concerns. They are agreeable all course concerns answered she was discharged home in stable condition. Lab Data Labs: Laboratory Results - last 24 hr 05/15/25 05/15/25 05/15/25 15:19 16:51 17:12 WBC 5.5 RBC 4.03 L Hgb 12.9 Hct 39.1 MCV 97.0 MCH 32.0 MCHC 33.0 RDW Std Deviation 47.6 H RDW Coeff of [place] 13.2 Plt Count 141 L MPV 10.0 Immature Gran % (Auto) 0.500 Neut % (Auto) 61.9 Lymph % (Auto) 24.0 Robertson % (Auto) 10.5 H Eos % (Auto) 2.9 Baso % (Auto) 0.2 Absolute Neuts (auto) 3.4 Absolute Lymphs (auto) 1.32 Nucleated RBC % 0 PT 17.1 H INR 1.4 APTT 34.1 Sodium 139 Potassium 4.4 Chloride 102 Carbon Dioxide 25.4 Anion Gap 12 BUN 14 Creatinine 1.01 Est GFR (MDRD) Non-Af 56 L BUN/Creatinine Ratio 13.4 Glucose 107 H Lactic Acid 1.5 Calcium 9.5 Total Bilirubin 0.43 AST 21 ALT 8 Alkaline Phosphatase 77 Troponin T High Sens 15 H D Troponin T Hi Sens 2 Hr 15 H Troponin T Hi Sens 4Hr Total Protein 5.8 L Albumin 3.9 Globulin 1.9 L Albumin/Globulin Ratio 2.0 Urine Color Yellow Urine Clarity Clear Urine pH 7.0 Ur Specific [place] 1.005 Urine Protein Negative Urine Glucose (UA) Normal Urine Ketones Negative Urine Occult Blood 10 H Urine Nitrite Negative Urine Bilirubin Negative Urine Urobilinogen Normal Ur Leukocyte Esterase Negative Urine RBC 0-5 SEEN Urine WBC 0-5 SEEN Ur Squamous Epith Cells 5-10 SEEN Urine Bacteria 0 SEEN Urine Mucus 0 SEEN 05/15/25 19:19 WBC RBC Hgb Hct MCV MCH MCHC RDW Std Deviation RDW Coeff of [place] Plt Count MPV Immature Gran % (Auto) Neut % (Auto) Lymph % (Auto) Robertson % (Auto) Eos % (Auto) Baso % (Auto) Absolute Neuts (auto) Absolute Lymphs (auto) Nucleated RBC % PT INR APTT Sodium Potassium Chloride Carbon Dioxide Anion Gap BUN Creatinine Est GFR (MDRD) Non-Af BUN/Creatinine Ratio Glucose Lactic Acid Calcium Total Bilirubin AST ALT Alkaline Phosphatase Troponin T High Sens Troponin T Hi Sens 2 Hr Troponin T Hi Sens 4Hr 16 H Total Protein Albumin Globulin Albumin/Globulin Ratio Urine Color Urine Clarity Urine pH Ur Specific [place] Urine Protein Urine Glucose (UA) Urine Ketones Urine Occult Blood Urine Nitrite Urine Bilirubin Urine Urobilinogen Ur Leukocyte Esterase Urine RBC Urine WBC Ur Squamous Epith Cells Urine Bacteria Urine Mucus Radiography Diagnostic Testing: Clinical Impression(s) from Imaging Studies Brain CT 05/15/25 15:01 IMPRESSION: Age consistent changes, no acute findings Reading Location: [id number] Chest X-Ray 05/15/25 16:05 IMPRESSION: No acute pulmonary process Reading Location: [id number] Discharge Plan Triage Chief Complaint: Dizziness Other Complaint: Weakness ED Provider: Kaden Munroe Dx/Rx/DC Orders Clinical Impression: Generalized weakness, Hypertension, CHRISTIANA (obstructive sleep apnea) Prescriptions: No Action multivitamin with folic acid [Thera] 1 TABLET tablet 1 tab PO DAILY apixaban 5 MG tablet 5 mg PO BID levothyroxine 75 mcg Tablet 75 mcg PO DAILY carvedilol 25 mg tablet 25 mg PO BID gabapentin 400 mg capsule 400 mg PO BID albuterol sulfate [Ventolin HFA] 90 mcg/actuation HFA aerosol inhaler 2 puff inhalation Q4H PRN (Reason: Wheezing) Rx Instructions: with spacer clonidine HCl 0.1 mg tablet 0.1 mg PO BID spironolactone 25 mg tablet 25 mg PO DAILY losartan 100 mg tablet 100 mg PO DAILY omeprazole 20 mg capsule,delayed release(DR/EC) 20 mg PO DAILY PRN (Reason: acid reflux) meclizine 25 mg tablet 25 mg PO TID PRN (Reason: dizziness) Patient Comments: PT STATES SHE SHOULD TAKE THIS BUT DOESN'T, ONLY IF SHE IS DIZZY. acetaminophen 325 mg Tablet 1,000 mg PO Q8H PRN PRN (Reason: Pain 1-10 Or Fever>100.7) Qty: 0 0RF Primary Care Provider: Ever Kilgore Referrals: Ever Kilgore MD [Primary Care Provider] - Activity Restrictions/Additional Instructions: Follow-up your doctor in outpatient setting. Your blood work did not show any acute findings no evidence of urinary tract infection your CT of your head did not show any acute findings. Return with worsening symptoms or other concerns. Take your nighttime meds as prescribed when you get home. Print Language: Mongolian Disposition Disposition: Home, Self Care
[2025-05-15] MEDS: 0.9% Normal Saline (1000mL) 1,000 ML 999 ML IV ×3 (15:40→20:10)
[2025-05-15 15:44] LABS: Hematocrit 39.1 % (37-47); Hemoglobin 12.9 g/dL (12.0-15.0); Immature Granulocytes Count 0.030 X10^3/uL (0.0-0.0); Mean Corp Hgb Conc 33.0 g/dL (32-36); Mean Corpuscular Volume 97.0 fL (81-99); Mean Platelet Vol. 10.0 fl (6.2-12.0); NRBC Flagged by Analyzer 0 % (0-5); Platelet Count 141 K/mm3 (150-450); RBC Distribution Width CV 13.2 % (11.6-14.6); RBC Distribution Width SD 47.6 fl (35.1-43.9); Red Blood Count 4.03 M/mm3 (4.2-5.4); White Blood Count 5.5 K/mm3 (4.4-11.0)
[2025-05-15 15:53] LABS: Prothrombin Time (Protime)PT. 17.1 SECONDS (11.7-14.9)
[2025-05-15 15:54] LABS: Partial Thromboplast Time 34.1 Seconds (24.1-36.2)
--- OUTSIDE RECORDS SUMMARY | 2025-05-15 15:58 | XMS RPT_ITS | CCD ---
Author Organization [facility] ion [facility] Care Team Providers Care Excel Developer Name Role Phone Jose Victoria Unavailable Unavailable Kavin Cole Unavailable Unavailable Kavin Cole Unavailable Unavailable ALCANTARA PAVEL C Unavailable Unavailable ALCANTARA, PAVEL C Unavailable Unavailable NO, DOCTOR ON Unavailable Unavailable ALCANTARA PAVEL C Unavailable Unavailable NO, DOCTOR ON Unavailable Unavailable Edwin Street Primary Care Provider Edwin Street MD Primary Care Provider [phone] Karime ROMERO, Mu V Unavailable [phone] MD Primary Care Provider [phone] Sylvia Lizama MD Primary Care Provider Rene Do DO Unavailable [phone] Sylvia Lizama MD Primary Care Provider Rene Do DO Unavailable [phone] Melba Escudero MD Unavailable Chinyere Shea RN Unavailable Rene Do DO Unavailable Chinyere Shea RN Unavailable ZENY CROWDER Admitting Unavailable ZENY CROWDER Attending Unavailable SYLVIA LIZAMA Primary Care Unavailable Sylvia Lizama MD Primary Care Provider Enid Palafox Unavailable Unavailabl Dr. Sylvia Choudhary Primary Care Provider Dr. César Berrios Emergency Provider Dr. Vikki Stanley Admit Provider Dr. Vikki Stanley Other Provider Dr. Kaylen Gonzalez Attending Provider Dr. Kaylen Gonzalez Other Provider Dr. Kenyon Joiner Attending Provider Dr. Kenyon Joiner Other Provider Dr. Melba Escudero Other Provider Sylvia Lizama MD Primary Care Provider Hi LARIOS, Rene Unavailable [phone] Melba Escudero MD Unavailable Shabbir RN, Chinyere Unavailable Marcel LOERA, Enid Unavailable Unavailabl e Suzy ROMERO, Anca Unavailable Melba Escudero MD Unavailable Shabbir RN, Chinyere Unavailable Annalisa ROMERO, Prince Unavailable Melba Escudero MD Unavailable Suzy ROMERO, Debimed Unavailable [facility] Vision Unavailable Unavailable Sylvia Lizama MD Primary Care Provider Bozena Hirsch RN Unavailable Haagen ROLL CUTTING OPERATOR.COMPENSATION ASSOCIATE, Gini Unavailable Suppan ROLL CUTTING OPERATOR.COMPENSATION ASSOCIATE, Judith A Unavailable Suppan ROLL CUTTING OPERATOR.COMPENSATION ASSOCIATE, Judith A Unavailable [phone] Suppan ROLL CUTTING OPERATOR.COMPENSATION ASSOCIATE, Judith A Unavailable [phone] Dr. Sylvia Lizama MD Primary Care Provider Dr. Zeny Wolff DO Attending Provider Dr. Zeny Wolff DO Emergency Provider Dr. Tanisha Bahena DO Emergency Provider Shefali LARIOS, Dr. uPri Admit Provider Shefali LARIOS, Dr. Puri Attending Provider Dl ROMERO, Dr. Curtis Primary Care Provider New LARIOS, Dr. Corbin Attending Provider New LARIOS, Dr. Corbin Emergency Provider [facility] , Dr. Garay Emergency Provider Shefali LARIOS, Dr. Puri Admit Provider hSefali LARIOS, Dr. Puri Attending Provider Shefali LARIOS, Dr. Puri Other Provider Myriam ROMERO, Dr. Santos Attending Provider Unavaila paris Miguel MD, Dr. Santos Other Provider Unavailable Rhys ROMERO, Dr. Kenyon Snider Attending Provider Rhys ORMERO, Dr. Kenyon Snider Other Provider Hi DO, Rene Unavailable Dr. Sylvia Lizama MD Primary Care Provider Rafat Casper MD Attending Provider Unavaila ble Lisette TOUR ACTOR-CChristina Attending Provider Dr. Rafat Casper MD Attending Provider Dr. Chase Jones MD Emergency Provider Dr. Andrade Tapia DO Admit Provider Dr. Andrade Tapia DO Attending Provider Dr. Andrade Tapia DO Other Provider Dr. Sylvia Lizama MD Primary Care Provider Rafat Casper MD Attending Provider Unavaila ble Lisette TOUR ACTOR-CChristina Attending Provider Rafat Reno Attending Unavailabl e Sylvia Lizama Primary Care Unavailable Andrade Tapia Consulting Unavailable Jopperi, Andrade Admitting Unavailable Andrade Tapia Attending Unavailable [facility] Primary Care Unavailable Mostjuarez, Jaxson Admitting Unavailable [facility] Primary Care Unavailable eller, Jaxson Consulting Unavailable Shefali Jaxson Attending Unavailable Alysha Miguel Attending Unavailable Kittoe, Alysha Consulting Unavailable [facility] Primary Care Unavailable Marcell Gutiérrez Attending Unavailable Jopperi, Andrade Admitting Unavailable JogeraldineeriAndrade Attending Unavailable [facility] Primary Care Unavailable Tanisha Bahena Referring Unavailable Mosteller, Jaxson Admitting Unavailable Kenyon Joiner Attending Unavailable [facility] Primary Care Unavailable Shefali Jaxson Consulting Unavailable Alysha Miguel Consulting Unavailable [facility]at Reno [facility] Unavailable Mostjuarez, Jaxson Admitting Unavailable [facility] Primary Care Unavailable Alysha Miguel Attending Unavailable Shefali, Jaxson Consulting Unavailable Alysha Miguel Consulting Unavailable Rafat Reno [facility] Unavailable Evans Jones Attending Unavailable [facility] Primary Care Unavailable Andrade Tapia Referring Unavailable Patrick Rene Attending Unavailable [facility] Primary Care Unavailable Jaxson Meehan Attending Unavailable Kenyon Joiner Attending Unavailable Kenyon Joiner Consulting Unavailable Regina, Andrade Consulting Unavailable Regina, Andrade Admitting Unavailable Andrade Tapia Attending Unavailable [facility] Primary Care Unavailable [facility] Primary Care Unavailable Rafat Casper Attending Unavailable Lisette TOUR ACTOR, Christina Attending Unavailable [facility] Primary Care Unavailable [place] TOUR ACTOR, Christina Attending Unavailable [facility] Primary Care Unavailable Zeny Wolff Attending Unavailable [facility] Primary Care Unavailable JUDITH PICKARD Attending Unavailable [facility] Primary Care Unavailable ELIDA PENNINGTON Attending Unavailable JUDITH PICKARD A Referring Unavailable [facility] Primary Care Unavailable MASCI, CÉSAR A Referring Unavailable [facility] Primary Care Unavailable MASCI, CÉSAR A Referring Unavailable [facility] Primary Care Unavailable MASCI, CÉSAR A Referring Unavailable [facility] Primary Care Unavailable SUPPMANUEL HARLEYJUDITH A Attending Unavailable MASCI, CÉSAR A Referring Unavailable [facility] Primary Care Unavailable MASCI, CÉSAR A Attending Unavailable [facility] Primary Care Unavailable DL, SYLVIA Funk Attending Unavailable DL, SYLVIA Funk Primary Care Unavailable SUPPJUDITH HARLEY A Referring Unavailable DL, SYLVIA Funk Primary Care Unavailable SUPPARNULFO, JUDITH A Attending Unavailable DL, SYLVIA Funk Primary Care Unavailable MASCI, CÉSAR A Referring Unavailable DL, SYLVIA Funk Primary Care Unavailable MASCI, CÉSAR A Referring Unavailable DL, SYLVIA Funk Primary Care Unavailable FRANKLYN JUARES Attending Unavailable SELF Referring Unavailable DL, SYLVIA Funk Primary Care Unavailable SUPPARNULFO, JUDITH A Attending Unavailable DL, SYLVIA Funk Primary Care Unavailable MISSY HIRSCH Referring Unavailable DL, SYLVIA Funk Primary Care Unavailable COPPOLABRENDON Referring Unavailable DL, SYLVIA Funk Primary Care Unavailable COPPOLABRENDON Referring Unavailable DL, SYLVIA Funk Primary Care Unavailable DL, SYLVIA Funk Primary Care Unavailable MASCI, CÉSAR A Attending Unavailable DL, SYLVIA Funk Primary Care Unavailable MASCI, CÉSAR A Referring Unavailable DL, SYLVIA Funk Primary Care Unavailable MASCI, CÉSAR A Referring Unavailable DL, SYLVIA Funk Primary Care Unavailable MASCI, CÉSAR A Referring Unavailable DL, SYLVIA Funk Primary Care Unavailable BRENDON COPPOLA Referring Unavailable DL, SYLVIA Funk Primary Care Unavailable MASCI, CÉSAR A Referring Unavailable DL, SYLVIA Funk Primary Care Unavailable SUPPARNULFO, JUDITH A Attending Unavailable DL, SYLVIA Funk Primary Care Unavailable SUPPARNULFO, JUDITH A Attending Unavailable DL, SYLVIA Funk [...] Unavailable ELIDA LOZADA Referring Unavailable DL, SYLVIA Funk Primary Care Unavailable MISSY HIRSCH Attending Unavailable SUPPARNULFO, JUDITH A Referring Unavailable DL, SYLVIA Funk Primary Care Unavailable SUPPAN, JUDITH A Referring Unavailable DL, SYLVIA Funk Primary Care Unavailable SUPPARNULFO, JUDITH A Attending Unavailable DL, SYLVIA Funk Primary Care Unavailable MASCI, CÉSAR A Referring Unavailable DL, SYLVIA Funk Primary Care Unavailable GINI AYALA Attending Unavailable MASCI, CÉSAR A Referring Unavailable DL, SYLVIA Funk Primary Care Unavailable ASAD DERAS Attending Unavailable SYLVIA LIZAMA Primary Care Unavailable Allergies Allergy Classification Reported Allergen(s) Allergy Type Date of Onset Reaction(s) Facility amLODIPine (6 sources) amLODIPine Drug Allergy 8 Swelling [facility] Angiotensin Converting Enzyme (KARYNA) Inhibitors (6 sources) Lisinopril Drug Allergy 8 Swelling [facility] Latex (6 sources) Latex Substance Allergy 0 Swelling [facility] Macrolides (antibiotic) (6 sources) Erythromycin Drug Allergy 3 Rash, GI Upset [facility] NIFEdipine (5 sources) NIFEdipine Drug Allergy 3 Rash [facility] Penicillins (antibiotic) (6 sources) Nafcillin Drug Allergy 9 Itching [facility] Work Phone: (20 sources) erythromycin; Translations: [erythromycin] Drug Allergy 3 Rash, GI Upset [facility] Repository (20 sources) Latex; Translations: [Latex] Propensity to adverse reactions to drug (disorder) [address] [facility] Repository (20 sources) lisinopril; Translations: [lisinopril] Drug Allergy 8 [facility] Repository (20 sources) amLODIPine; Translations: [AMLODIPINE BESYLATE] Drug Allergy 8 Swelling [facility] Work Phone: (20 sources) Nafcillin; Translations: [NAFCILLIN] Drug Allergy 9 Itching [facility] Work Phone: (7 sources) amLODIPine; Translations: [amlodipine] Drug Allergy 8 feet swell, Swelling [facility] Work Phone: (20 sources) WASPS; Translations: [WASPS] drug allergy 7 Mental Status Change, Rash [facility] Work Phone: (1 source) COVID VACCINE drug allergy 1 throat swelling, anaphylaxis [facility] Work Phone: (20 sources) Covid-19 Vaccine, Mrna, [id number], Lnp-S (Moderna); Translations: [COVID-19 VACCINE, MRNA, [id number], LNP-S (MODERNA)] Drug Allergy 1 Anaphylaxis [facility] (20 sources) Adhesive agent; Translations: [ADHESIVE] Drug Allergy 2 [facility] Work Phone: (5 sources) Erythromycin Drug Allergy 2 Rash [facility] (6 sources) COVID-19 vaccine, mRNA, [id number],; Translations: [COVID-19 vaccine, mRNA, [id number],] Allergy to substance 2 Anaphylaxis [facility] (5 sources) venom-wasp Allergy to substance 2 NEEDS FOLLOW-UP [facility] (20 sources) NIFEdipine; Translations: [NIFEDIPINE] Drug Allergy 3 [facility] (4 sources) Covid-19 Vaccine, Mrna, [id number], Lnp-S (Moderna) Drug Allergy 1 Anaphylaxis [facility] (1 source) Erythromycin Drug Allergy 5 [facility] Repository (1 source) venom-wasp Drug allergy (disorder) 5 [facility] Repository (2 sources) Adhesive agent Drug Allergy 2 [facility] Work Phone: Medications Current Medications Medication Drug Class(es) Dates Sig (Normalized) Sig (Original) acetaminophen 325 mg oral tablet (20 sources) Start: 04-04-2025 take 1-10 tablets by mouth every eight hours as needed for pain Acetaminophen 325 mg Tablet Active 1000 mg PO EVERY 8 HOURS NEEDED as needed for Pain 1-10 Or Fever>100.7 0 0 April 04, 2025 11:50am Start: 10-08-2024 End: 10-08-2024 take 1 dose [...] by mouth every 8 hours as needed. [id number] 200 actuat albuterol 0.09 mg/actuat metered dose [...] tablet by mouth once a day carvedilol [id number] Roselia Ciro [facility] Comment on above: Take 1 tablet by sheron th twice daily with meals. Take 12.5 mg by mout h twice daily. Take 1 tablet by sheron th twice daily. Take 1 tablet by sheron th two times a day. cephalexin 500 mg oral capsule (10 sources) Cephalosporin Antibacterial Start: 2 End: 2 [...] on above: Take 1 capsule by mo [facility] twice daily for 7 days. cloNIDine hydrochloride 0.1 mg oral tablet (20 sources) Central alpha-2 Adrenergic Agonist Start: 5 End: 6 take 1 tablet by mouth twice daily cloNIDine HCl (CATAPRES) 0.1 mg tablet Indications: Essential hypertension Take 1 tablet by mouth two times a day. 180 tablet 1 05/10/2025 11/06/2025 Active Start: 04-02-2024 End: 04-02-2025 take 1 tablet by mouth twice daily cloNIDine HCl (CATAPRES) 0.2 mg tablet Take 1 tablet by mouth two times a day. 180 tablet 3 05/03/2024 05/03/2024 Discontinued (Discontinued by Patient) Start: 03-26-2024 End: 04-15-2025 take 1 tablet by mouth twice daily Clonidine Hcl 0.1 mg Tablet Discontinued 0.1 mg PO TWICE A DAY 60 30 0 March 26, 2024 12:00am April 05, 2025 3:07pm bp doxycycline hyclate 100 mg oral tablet (7 sources) Tetracycline-class Drug Start: 03-15-2024 End: 07-04-2024 take 1 tablet by mouth twice daily [...] Contrast as designated per enteric contrast guidelines [id number] 0.3 ml EPINEPHrine 1 mg/ml auto-injector (20 sources) alpha-Adrenergic Agonist, beta-Adrenergic Agonist, Catecholamine Start: 06-28-20 End: 06-17-20 EPINEPHrine (EPIPEN) 0.3 mg/0.3 mL auto-injector Indications: [...] dose. Repeat in 3 days as needed. 12 hr guaiFENesin 600 mg extended release oral tablet (1 source) Start: 10-27-19 End: 11-03-19 take 1 tablet by mouth twice daily as needed guaiFENesin (MUCINEX) 600 mg 12 hr tablet Indications: URI, acute Take 1 tablet by mouth two times a day as needed for cold/allergy symptoms (cough) for up to 7 days. 14 tablet 0 10/27/2023 11/03/2023 Active Comment on above: Take 1 tablet by sheron two times a day as needed for cold/allergy symptoms (cough) for up to 7 days. iv contrast (will be provided with radiology test) (20 sources) Start: 12-11-19 End: 12-12-19 iv contrast (will be provided with radiology [...] before breakfast. loratadine 10 mg oral tablet (16 sources) take 1 tablet by mouth once daily in the morning loratadine (CLARITIN) 10 mg tablet Take 10 mg by mouth every morning. Active meclizine hydrochloride 25 mg oral tablet (20 sources) Antiemetic Start: 4 End: 5 take 1 tablet by mouth three times daily as needed for dizziness Meclizine 25 mg tablet Active 25 mg PO THREE TIMES A DAY as needed for dizziness July 04, 2024 12:00am Start: 04-08-2024 End: 05-08-2024 take 1 tablet [...] With Folic Acid (Thera) 1 TABLET tablet (5 sources) Start: 08-01-2018 take 1 tablet by [...] by mouth. Take 1 tablet by sheron once daily. mupirocin 0.02 mg/mg topical ointment [...] above: Take 1 capsule by mo uth twice daily for 7 days. Take 1 capsule by mo uth two times a day for 7 days. [...] capsule by mouth at bedtime as needed. petrolatum 0.41 mg/mg topical ointment (4 sources) Start: 08-10-2018 mineral oil-hydrophilic petrolatum (AQUAPHOR) ointment Apply topically as needed. 0 08/10/2018 Active phenylephrine hydrochloride 25 mg/ml ophthalmic solution (2 sources) alpha-1 Adrenergic Agonist Start: 08-25-2023 End: 08-25-2023 PHENYLephrine 2.5 % 1 Drop (AK-DILATE, VIK-SYNEPHRINE) Start: 02-21-2023 End: 02-21-2023 PHENYLephrine 2.5 % 1 Drop ( AK-DILATE, VIK-SYNEPHRINE) proparacaine hydrochloride 5 mg/ml ophthalmic solution (2 sources) Local Anesthetic Start: 08-25-2023 End: 08-25-2023 proparacaine 0.5 % 1 Drop (ALCAINE) Start: 02-21-2023 End: 02-21-2023 proparacaine 0.5 % 1 Drop (A LCAINE) sodium chloride flush 0.9 % injection 3 mL (2 sources) Start: 09-13-2020 sodium chlorid e flush 0.9 % injection 3 mL Start: 09-06-2020 sodium chlorid e flush 0.9 % injection 3 mL triamcinolone acetonide 0.001 mg/mg topical ointment (4 [...] Sig (Normalized) Sig (Original) acetaminophen 325 mg / HYDROcodone bitartrate 5 mg oral tablet (20 sources) Opioid Agonist Start: 01-21-2022 End: 09-01-2022 take 0.5-1 tablets by mouth twice daily as needed HYDROcodone-acetamin ophen (NORCO) 5-325 mg per tablet TAKE 1/2 [...] / oxyCODONE hydrochloride 5 mg oral tablet (7 sources) Opioid Agonist Start: 08-04-2022 End: 08-19-2022 Oxycodone-Acetaminop hen 5-325 mg tablet Discontinued 1 {tbl} PO [...] aspirin 81 mg delayed release oral tablet (5 sources) Platelet Aggregation Inhibitor, Nonsteroidal Anti-inflammatory Drug [...] 07/27/2024 Active baclofen 10 mg oral tablet (13 sources) gamma-Aminobutyric Acid-ergic Agonist Start: 05-28-2019 End: [...] 24, 2018 12:02pm muscle relaxer bifidobacterium animalis [id number] unt / bifidobacterium longum [id number] unt / lactobacillus acidophilus [id number] unt oral capsule (1 source) Start: 01-08-2019 End: 09-20-2020 take 1 capsule by mouth once daily L.acidoph-B.lactis-B.longum (FLORAJEN3) 460 mg (7.5-6- 1.5 bill. cell) cap Indications: BV (bacterial vaginosis) , Vaginal yeast infection Take 1 capsule by mouth once daily. 30 capsule 2 01/08/2019 09/20/2020 Discontinued Biotin (4 sources) Start: 03-24-2024 End: 07-04-2024 biotin Discontinued [...] iv infusion cefdinir 300 mg oral capsule (3 sources) Cephalosporin Antibacterial Start: 12-01-2024 End: 04-01-2025 take 1 capsule by mouth twice daily Cefdinir 300 mg capsule Discontinued 300 mg PO TWICE A DAY 4 0 December 01, 2024 12:00am April 01, 2025 5:20pm cefTRIAXone (ROCEPHIN) 1 g IVPB in 50 mL D5W minibag (1 source) Start: 09-06-2020 End: 09-06-2020 cefTRIAXone (ROCEPHIN) 1 g IVPB in 50 mL D5W minibag diclofenac sodium 0.01 mg/mg topical gel (8 sources) Nonsteroidal Anti-inflammatory Drug Start: 01-12-2021 End: [...] mg, ORAL, ONCE, 1 dose, O n Fri10/01/24 at 1030 Start: 09-24-2024 End: 09-24-2024 take 1 dose by mouth once 50 mg, ORAL, ONCE, 1 dose, O n Fri09/24/24 at 0900 Start: 09-17-2024 End: 09-17-2024 take 1 dose by mouth once 50 mg, ORAL, ONCE, 1 dose, O n Fri09/17/24 at 0830 Start: 09-17-2024 End: 09-17-2024 50 [...] Active docusate sodium 100 mg oral capsule (5 sources) Start: 08-01-2018 End: 11-24-2018 take 1 capsule by mouth once daily Docusate Sodium (Colace) 100 MG capsule Discontinued 100 mg PO DAILY August 01, 2018 1:00am November 24, 2018 12:02pm docusate sodium 50 mg / sennosides, assisted 8.6 mg oral tablet (5 sources) Start: 06-11-2018 End: 06-18-2018 Sennosides-Docusate Sodium (Senna-Docusate Sodium Tablet) 1 EACH tablet Discontinued 2 NMA PO TWICE A DAY June 11, 2018 12:00am June 18, 2018 12:22pm 0.4 ml enoxaparin sodium 100 mg/ml prefilled syringe (5 sources) Low Molecular Weight Heparin Start: 06-11-2018 [...] injection (SUBLIMAZE) furosemide 20 mg oral tablet (9 sources) Loop Diuretic Start: 03-11-2015 End: 11-10-2015 [...] 40 mg by mouth daily 0 Active gabapentin 300 mg oral capsule (20 sources) Anti-epileptic Agent Start: 04-15-2025 End: 04-15-2025 take 1 capsule by mouth twice daily gabapentin (NEURONTIN) 300 mg capsule Indications: Neuropathy Take 1 capsule by mouth two times a day for 90 days. 180 capsule 04/15/2025 04/15/2025 Discontinued Start: 03-01-2025 End: 08-28-2025 take 1 capsule by mouth four times daily gabapentin (NEURONTIN) 300 mg capsule Indications: Neuropathy Take 1 capsule by mouth four times daily for 180 days. 360 capsule 1 03/01/2025 04/15/2025 Discontinued Start: 03-01-2025 End: 03-01-2025 take 1 capsule by mouth twice daily gabapentin (NEURONTIN) 300 mg capsule Indications: Neuropathy Take 1 capsule by mouth two times a day for 180 days. 180 capsule 1 03/01/2025 03/01/2025 Discontinued Start: 12-28-2024 End: 07-14-2025 take 1 capsule by mouth once daily at bedtime gabapentin (NEURONTIN) 300 mg capsule Indications: Neuropathy Take 1 capsule by mouth daily at bedtime for 90 days. 90 capsule 04/15/2025 05/10/2025 Discontinued (Clinical Decision) Start: 05-18-2024 End: 08-16-2024 take 1 capsule by mouth once daily at bedtime gabapentin (NEURONTIN) 400 mg capsule Indications: Left arm pain , Neck pain , DDD (degenerative disc disease), lumbar Take 1 capsule by mouth daily at bedtime for 90 days. 90 capsule 05/18/2024 05/27/2024 Discontinued (Duplicate Entry) Start: 03-24-2024 End: 05-10-2026 take 1 capsule by mouth twice daily gabapentin (NEURONTIN) 400 mg capsule Indications: Essential tremor , Chronic migraine without aura, with intractable migraine, so stated, with status migrainosus Take 1 capsule by mouth two times a day. 180 capsule 3 05/10/2025 05/10/2026 Active Start: 03-24-2024 take 1 capsule by [facility] three times daily Gabapentin 400 mg capsule [...] capsule by mouth twice a day gabapentin [id number] Roselia Tanner LAYNE Start: 06-10-2018 End: 06-10-2018 take 1 capsule [...] uth every 8 hours for 180 days. gadobenate dimeglumine (MULTIHANCE) injection 20 mL (1 source) Start: 9 End: 9 gadobenate dimeglumine (MULTIHANCE) injection 20 mL gadobutrol (GADAVIST) injection 10 mL (1 source) Start: 1 End: 1 gadobutrol (GADAVIST) injection 10 mL hydrALAZINE hydrochloride 50 mg oral tablet (20 sources) Arteriolar Vasodilator Start: 4 End: 5 take 1 tablet by mouth three times daily hydrALAZINE (APRESOLINE) 50 mg tablet Indications: Essential hypertension Take 1 tablet by mouth three times a day. 270 tablet 3 05/27/2024 09/03/2024 Discontinued Start: 04-03-2023 End: 11-12-2025 take 1 tablet by mouth twice daily hydrALAZINE (APRESOLINE) 50 mg tablet Indications: Essential hypertension Take 1 tablet by mouth two times a day. 180 tablet 3 11/12/2024 04/15/2025 Discontinued (Discontinued by another Health Care Provider) Start: 11-27-2022 End: 11-08-2024 take 2 tablets [...] 12 hours. Take 2 tablets by mo uth twice daily. Take 50 mg by mouth once daily. Take 1 tablet by sheron th twice daily. Take 1 tablet by sheron th two times a day. hydroCHLOROthiazide 12.5 mg oral capsule (20 sources) Thiazide Diuretic Start: 2022 End: 2023 take 1 capsule by mouth once daily [...] tablet by mouth twice a day hydrochlorothiazide [id number] Roselia Ciro LPN Start: 06-10-2018 End: 11-24-2018 take 1 [...] 0 02/11/2023 Discontinued [facility] hydroCHLOROthiazide (HYDRODIURIL, ESIDRIX) 50 mg tablet Take 50 mg by mouth twice daily. 0 Active take 1 tablet by sheron twice daily hydrochlorothiazide (HYDRODIURIL) 12.5 MG tablet Take 12.5 mg by mouth 2 times daily 0 Active Comment on above: Take one tablet by m out in AM & 1/2 tablet in PM. Take 1 tablet by sheron once daily. Take 50 mg by mouth twice daily. Take 25 mg by mouth twice daily. Take 1 capsule by [facility] once daily. hydroCHLOROthiazide 25 mg / triamterene 37.5 mg oral tablet (20 sources) Potassium-sparin g Diuretic, Thiazide Diuretic Start: 03-24-20 End: 01-07-20 24 take 1 tablet by mouth once daily triamterene-hydroCHL OROthiazide (MAXZIDE-25) 37.5-25 mg per tablet Take 1 tablet by mouth once daily. 03/24/2023 01/07/2024 Discontinued Start: 08-02-2020 End: 11-27-2022 take 1 tablet by mouth once daily triamterene-hydrochlorothiazide (MAXZIDE -25MG) 37.5-25 mg per tablet Take 1 tablet by mouth once daily. 90 tablet 08/02/2020 05/31/2021 Discontinued Comment on above: Take 1 tablet by [facility] once daily. hydrocortisone 100 mg injection (1 source) Corticosteroid Start: 09-17-20 End: 09-17-20 100 mg, INTRAVENOUS, NEEDED, 1 dose, Starting on Fri09/17/24 at 0817, Until Fri09/17/24 at 1045, Administer per hypersensitivity/ja phylaxis grading in nursing communication lidocaine 25 mg/ml / prilocaine 25 mg/ml topical cream (20 sources) Antiarrhythmic, Amide Local Anesthetic Start: 06-19-20 End: 04-24-20 lidocaine-prilocaine (EMLA) 2.5-2.5 % cream Apply to affected area as needed. 30 g 2 04/17/2023 04/17/2023 Discontinued Comment on above: Apply to affected ar ea as needed. Apply to affected ar ea as needed for up to 7 days. lisinopril 40 mg oral tablet (5 sources) Angiotensin Converting Enzyme Inhibitor Start: 11-07-19 End: 11-10-19 take 1 tablet by mouth twice daily Lisinopril 40 MG tablet Discontinued 40 mg PO TWICE A DAY November 07, 2013 1:00am November 10, 2015 3:29pm losartan potassium 25 mg oral tablet (20 sources) Angiotensin 2 Receptor Lenore Start: 04-05-20 End: 05-10-20 take 1 tablet by mouth once daily losartan (COZAAR) 25 mg tablet Take 1 tablet by mouth once daily. 04/05/2025 05/10/2025 Discontinued (Clinical Decision) Start: 07-01-2024 End: 05-10-2026 take 1 tablet by mouth once daily losartan (COZAAR) 100 mg tablet Indications: Essential hypertension Take 1 tablet by mouth once daily. 90 tablet 3 05/10/2025 05/10/2026 Active Start: 05-27-2024 End: 06-17-2025 take 1 tablet by mouth once daily losartan (COZAAR) 50 mg tablet Indications: Essential hypertension Take 1 tablet by mouth once daily. 90 tablet 3 06/17/2024 07/01/2024 Discontinued methylPREDNISolone 4 mg oral tablet (5 sources) Corticosteroid Start: 06-11-2018 End: 06-18-2018 Methylprednisolone 4 MG tablet Discontinued 4 mg PO DIRECTED June 11, 2018 12:00am June 18, 2018 12:22pm metoprolol tartrate 100 mg oral tablet (11 sources) beta-Adrenergic Lenore Start: 06-17-2018 take 1 tablet by mouth twice daily LOPRESSOR 100 MG TABS 1 tablet by mouth twice a day metoprolol tartrate [id number] Roselia Tanner LPN Start: 06-07-2018 End: 11-24-2018 take 1 tablet [...] End: 04-29-2024 midazolam 1-5 mg injection (VERSED) bfqvsygp-ojs-pqzp-f a-lutein (1 source) Start: 07-06-2018 take 1 tablet by mouth once daily MULTIVITAMIN WOMEN 50+ TABS 1 tablet by mouth once a day uecawomj-rzi-ifne -fa-lutein [id number] Roselia Ciro [employer] HEAD NIFEdipine 30 mg osmotic 24 hr extended [...] hydrochloride 10 mg extended release oral tablet (10 sources) Opioid Agonist Start: 08-01-2018 End: 11-24-2018 [...] HOURS NEEDED as needed for Severe Pain (-07/01) 5 0 June 10, 2018 12:00am June 18, 2018 12:21pm Chronic low back pain Low back pain pantoprazole 40 mg delayed release oral tablet (20 sources) Proton Pump Inhibitor Start: 08-19-2022 End: [...] 20 mg by mouth every morning. Active PARoxetine hydrochloride 10 mg oral tablet (20 sources) Serotonin Reuptake Inhibitor Start: 02-05-2024 End: 11-12-2025 take 1 tablet by mouth once daily Paroxetine Hcl 10 mg tablet Discontinued 10 mg PO DAILY March 24, 2024 12:00am April 04, 2025 11:51am mental health perflutren lipid microspheres 1.3 mL in NaCl [...] tablet 07/27/2024 12/28/2024 Discontinued polyethylene glycol 3350 57298 mg powder for oral solution (5 sources) Osmotic Laxative Start: 08-01-2018 End: 11-24-2018 take 17 g by mouth once daily Polyethylene Glycol 3350 17 GM Packet Discontinued 17 g PO DAILY August 01, 2018 1:00am November 24, 2018 12:04pm potassium chloride 10 meq extended release oral tablet (20 sources) Start: 09-16-2023 End: 05-10-2025 take 1 tablet by mouth twice daily potassium chloride (K-TAB) 10 mEq tablet Indications: Hypopotassemia Take 1 tablet by mouth two times a day. 180 tablet 3 06/17/2024 05/10/2025 Discontinued (Changing Therapy/Dosage Form) Start: 05-28-2022 End: 12-22-2023 take 1 tablet by mouth twice daily [...] 60 tablet 3 08/10/2018 Active Start: 06-07-2018 End: 04-05-2025 take 1 tablet by mouth twice daily Potassium Chloride 10 MEQ tablet Discontinued 10 meq PO TWICE A DAY June 07, 2018 12:00am April 05, 2025 3:08pm supplement Comment on above: Take 1 tablet by sheron twice daily. Take 1 tablet by sheron two times a day. predniSONE 10 mg oral tablet (11 sources) Start: 07-04-2024 End: 11-26-2024 Prednisone 10 [...] on above: Take 2 tablets by mo [facility] once daily for 5 days. 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 30 tablet 2 05/22/2022 04/17/2023 Discontinued (Course of therapy completed) Comment on above: Take 1 tablet by sheron th every 6 hours as needed. psyllium 6000 mg powder for oral suspension (20 sources) Start: End: take 1 dose by mouth twice daily psyllium husk (KONSYL) 6 gram pwpk packet Indications: Diarrhea, unspecified type Take 1 Packet by mouth two times a day. 60 Packet 5 03/04/2024 07/27/2024 Discontinued (Other) rimegepant 75 mg disintegrating oral tablet (20 sources) Start: End: take 1 tablet by mouth once daily as needed rimegepant (NURTEC ODT) 75 mg disintegrating tablet Indications: Intractable chronic migraine with aura and without status migrainosus Take 1 tablet by mouth once daily as needed. 8 tablet 2 07/27/2024 12/28/2024 Discontinued riTUXimab-pvvr 800 mg in NaCl 0.9% 250 mL (RUXIENCE) (1 source) Start: End: 025 800 mg (rounded from 825 mg = 375 mg/m2 2.2 m2 Treatment Plan BSA from Recorded weight), INTRAVENOUS, ONCE, 1 dose, On Fri10/08/24 at 0930, TOTAL VOLUME - Expires: 10/09/24 @ 0900 RAPID - Infuse 50 ml over 30 minutes then 200 ml over 60 minutes. Refrigerate. riTUXimab-pvvr 800 mg in NaCl 0.9% 620 mL (RUXIENCE) (3 sources) Start: End: 025 800 mg (rounded from 825 mg = [...] Take 1 tablet by sheron once daily. Take 1/2 tab once a [...] in the nose every 6 hours. Active spironolactone 25 mg oral tablet (10 sources) Aldosterone Antagonist Start: 03-14-2025 End: 05-10-2025 take 1 tablet by mouth once daily spironolactone (ALDACTONE) 25 mg tablet Take 1 tablet by mouth once daily. 90 tablet 1 03/14/2025 05/10/2025 Discontinued (Discontinued by Patient) sulfamethoxazole 800 mg / trimethoprim 160 mg oral tablet (1 source) Dihydrofolate Reductase Inhibitor Antibacterial, Sulfonamide Antimicrobial Start: 12-06-2020 End: 12-13-2020 take 1 tablet by mouth twice daily sulfamethoxazole-tr imethoprim (BACTRIM DS) 800-160 mg per tablet Indications: [...] tablet (12 sources) Opioid Agonist Start: End: 2 take 1 tablet by mouth every six [...] Translations: [Epigastric pain] Episodic Acute cerebrovascular disease (2 sources) Cerebrovascular accident; Translations: [Cerebral infarction due to [...] Chronic Chronic obstructive pulmonary disease and bronchiectasis (6 sources) Bronchitis; Translations: [Bronchitis, not specified as acute or chronic] Episodic Coagulation and hemorrhagic disorders (20 sources) Hereditary thrombophilia; Translations: [Other primary thrombophilia] Onset: 04-02-2024 04-02-2024 Chronic Conditions associated with dizziness or vertigo (20 sources) Lightheadedness; Translations: [Dizziness and giddiness] Onset: 02-26-2010 Resolved: 12-11-2010 Episodic Disorders of lipid metabolism (20 sources) Hyperlipidemia; Translations: [Hyperlipidemia, unspecified] Onset: 06-07-2005 05-31-2021 Chronic E Codes: Fall (8 sources) Fall; Translations: [Unspecified fall, initial encounter] 11-26-2024 Episodic Esophageal disorders (20 sources) Gastroesophageal reflux disease without esophagitis; Translations: [Gastro-esophageal reflux disease without esophagitis] Onset: 05-31-2022 Chronic Essential hypertension (20 sources) Essential hypertension; Translations: [Essential (primary) hypertension] Onset: 06-07-2005 05-31-2021 Chronic Genitourinary symptoms and ill-defined conditions (20 sources) Incontinence; Translations: [Mixed incontinence] Onset: 12-19-2010 01-16-2012 Chronic Genitourinary symptoms and ill-defined conditions (6 sources) Increased frequency of urination; Translations: [Frequency of micturition] Episodic Glaucoma (20 sources) Ocular hypertension; Translations: [Ocular [...] colitis, unspecified] 04-02-2024 Episodic Malaise and fatigue (16 sources) Fatigue; Translations: [Other fatigue] Onset: 12-01-2024 Episodic Non-Hodgkin`s lymphoma (20 sources) B-cell lymphoma (clinical); Translations: [Unspecified B-cell lymphoma, unspecified site] Onset: 07-24-2021 07-24-2021 Chronic Nonspecific chest pain (11 sources) Chest pain; Translations: [Chest pain, unspecified] 03-21-2021 Episodic Occlusion or stenosis of precerebral arteries (20 sources) Bilateral stenosis of carotid arteries; Translations: [Occlusion and stenosis of bilateral carotid arteries] Onset: 05-03-2019 05-03-2019 Chronic Osteoarthritis (20 sources) Degenerative joint disease involving multiple joints; Translations: [Polyosteoarthritis, unspecified] Onset: 06-07-2005 Resolved: 12-11-2010 06-07-2005 Chronic Other aftercare (1 source) correction (current) use of anticoagulants; Translations: [Long-term (current) [...] Episodic Other ear and sense organ disorders (5 sources) Impacted cerumen; Translations: [Impacted cerumen, unspecified [...] Other hereditary and degenerative nervous system conditions (10 sources) Restless legs; Translations: [Restless legs syndrome] 06-10-2018 Chronic Comment on above: she attributes this to peripheral neuropathy but why does she have peripheral neuropathy? Other hereditary and degenerative nervous system conditions (1 source) Essential tremor; Translations: [Essential tremor] Onset: 01-14-2017 Chronic Other lower respiratory disease (3 sources) Dyspnea; Translations: [Shortness of breath] Episodic Other lower respiratory disease (2 sources) Cough; Translations: [Acute cough] 11-01-2024 Episodic Other nervous system disorders (20 sources) Idiopathic peripheral neuropathy; Translations: [Other hereditary and idiopathic neuropathies] Onset: 06-07-2005 06-07-2005 Chronic Other nervous system disorders (5 sources) Peripheral nerve disease ; Translations: [Polyneuropathy, unspecified] 04-21-2018 Chronic Other nervous system disorders (8 sources) Neuropathy; Translations: [Polyneuropathy, unspecified] 06-10-2018 Chronic Other nervous system disorders (16 sources) Chronic low back pain; Translations: [Other chronic pain] Onset: 12-28-2015 Resolved: 11-27-2022 11-27-2022 Chronic Other nervous system disorders (2 sources) Difficulty walking; Translations: [Difficulty in walking, not elsewhere classified] 04-01-2025 Chronic Other nervous system disorders (1 source) Polyneuropathy, unspecified; Translations: [Neuropathy] Onset: 04-15-2025 Chronic Other nervous system disorders (1 source) [...] Chronic Other nutritional; endocrine; and metabolic disorders (5 sources) Morbid obesity; Translations: [Morbid (severe) obesity due to excess calories] 06-10-2018 Chronic Other screening for suspected conditions (not mental disorders or infectious disease) (20 sources) Patient encounter status; Translations: [Encounter for screening mammogram for malignant neoplasm of breast] Onset: 05-03-2022 Resolved: 11-27-2022 Episodic Other skin disorders (2 sources) Mass of [...] 06-12-2009 06-12-2009 Chronic Other upper respiratory infections (5 sources) Chronic sinusitis; Translations: [Chronic sinusitis, unspecified] [...] Onset: 01-17-2017 05-31-2021 Chronic Residual codes; unclassified (11 sources) Sleep apnea; Translations: [Sleep apnea, unspecified] [...] Resolved: 01-15-2012 01-01-2011 Chronic Unclassified (1 source) Appointment is with Gini Ayala N.P. Unclassified (1 source) Cough, unspecified; Translations: [Cough, unspecified] Onset: 01-03-2025 Unclassified (1 source) Acute cough; Translations: [Acute cough] Onset: 11-01-2024 Unclassified (1 source) Non-Chemotherapy Treatment Onset: 10-08-2024 Unclassified (1 source) Worsening headaches; Translations: [Worsening headaches] Onset: 08-12-2024 Unclassified (1 source) Intractable chronic migraine with [...] encounter] Onset: 8 Resolved: 4 08-07-2018 Episodic Diseases of mouth; excluding dental (20 sources) Grayson's angina; Translations: [Cellulitis and abscess of mouth] Onset: 1 Resolved: 1 05-19-2021 Episodic Fluid and electrolyte disorders (20 sources) Hypokalemia; Translations: [Hypokalemia] Onset: 1 Resolved: 1 Episodic Headache; including migraine (20 sources) Headache; [...] sources) Long-term current use of anticoagulant; 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] Onset: 2 07-08-2023 [...] [Left arm pain] Onset: 4 Episodic Other ear and sense [...] Onset: 8 Resolved: 3 08-04-2018 Episodic Other injuries and conditions due to [...] Onset: 7 Resolved: 3 11-27-2022 Chronic Other skin disorders (1 source) Nonscarring hair [...] Test Name Value Interpretation Reference Range Facility Bedside Glucoseon 04-02-2025 FINGERSTICK GLU 146 mg/dL High 74-106 [facility] Comment on above: Result Comment: ALISSON POLO OF PATIENT CARE PER NURSING PROTOCOL Performed By: #### L 501.080 #### [facility] [address] [place], [address] Calculated very low density lipoprotein (VLDL) cholesterol measurementOrdered By: Andrade Tapia on 04-02-2025 Calculated very low density lipoprotein (VLDL) cholesterol measurement 32 mg/dL 5-40 [facility] Echocardiogram study reportO rdered By: Patrick Rene on 04-02-2025 Study report [facility] [address] [place] [address] Echo Complete W/ Contrast 04/02/25 0937 MR#: [id number] Acct: [id number] Name: LISA UP Rep #:[id number] : [id number] From: Patrick Parks Attending Dr: Dr. Andrade Tapia DO Status: ADM IN Ordering Dr: Andrade Tapia DO Date: Location: [facility] Sex: F C Admitted: 04/01/25 Reason For Study Reason For Study: TIA/STROKE Procedure This was a 2D Doppler, Color Flow transthoracic echocardiogram. The study was technically difficult. Contrast injection was performed. Exam performed portable in patient room. Left Ventricle Left ventricular systolic function is hyperdynamic. The LV ejection fraction is 70 %. Mid cavitary dynamic gradient 22 with valsalva mm/Hg. No regional wall motion abnormalities noted. Right Ventricle Normal right ventricle. Normal systolic function. Tricuspid Valve Right ventricular systolic pressure estimated to be 22 mmHg. No tricuspid valve insufficiency. Aortic Valve The aortic valve is not well visualized. Trisinus/trileaflet aortic valve. Thereis no aortic stenosis. Pulmonic Valve Normal pulmonic valve. Great Vessels Normal sized aortic root. Normal inferior vena cava. Pericardium/Pleural No pericardial effusion. Epicardial fat. Medication Diluted definity 2ml given slow IV push to enhance endocardial definition. MMode/2D Measurements & Calculations LVIDd: 3.4 cm IVSd: 1.5 cm LVOT diam: 2.0 cm LVIDs: 1.9 cm LVPWd: 1.3 cm LVOT area: 3.0 cm2 RVDd: 3.6 cm FS: 45.8 % asc Aorta Diam: 3.3 cm LAV(MOD-bp): 54.7 ml LVAd ap4: 34.1 cm2 LAV(MOD-bp) Indexed: 26.5 ml/m2 LVLd ap4: 8.7 cm LAV(MOD-sp2): 55.0 ml EDV(MOD-sp4): 110.4 ml LAV(MOD-sp4): 53.6 ml EDV(sp4-el): 112.8 ml LVAs ap4: 20.4 cm2 LVLs ap4: 7.6 cm ESV(MOD-sp4): 47.2 ml ESV(sp4-el): 46.3 ml EF(MOD-sp4): 57.3 % EF(sp4-el): 59.0 % SV(MOD-sp4): 63.2 ml SV(MOD-sp2): 50.1 ml LVAd ap2: 29.6 cm2 LVLd ap2: 8.2 cm SI(MOD-sp4): 30.6 ml/m2 SI(MOD-sp2): 24.2 ml/m2 EDV(MOD-sp2): 88.4 ml EDV(sp2-el): 91.3 ml LVAs ap2: 18.9 cm2 LVLs ap2: 7.6 cm ESV(MOD-sp2): 38.3 ml ESV(sp2-el): 39.6 ml EF(MOD-sp2): 56.7 % SV(sp4-el): 66.5 ml Ao sinus diam: 3.[address] Junction: 2.4 cm LA A4 area: 19.3 cm2 LA dimension(2D): 3.8 cm RA A4 area: 11.7 cm2 TAPSE: 2.0 cm Time Measurements MV dec time: 0.44 sec Doppler Measurements & Calculations MV E max rufus: 56.2 cm/sec Lat Peak E' Rufus: 7.5 cm/sec Med Peak E' Rufus: 7.5 cm/sec MV A max rufus: 79.4 cm/sec E/E' lat: 7.5 E/E' med: 7.5 MV E/A: 0.71 Ao V2 max: 121.2 cm/sec LV V1 max: 90.2 cm/sec MV dec slope: 128.5 cm/sec2 Ao max P.9 mmHg LV V1 max P.3 mmHg Ao V2 mean: 91.7 cm/sec LV V1 mean P.1 mmHg Ao mean P.6 mmHg LV V1 mean: 69.4 cm/sec Ao V2 VTI: 27.7 cm LV V1 VTI: 21.8 cm AV (velocity ratio): 0.79 GABRIELA(I,D): 2.4 cm2 GABRIELA(V,D): 2.2 cm2 SV(LVOT): 65.6 ml PA V2 max: 86.0 cm/sec TR max rufus: 208.5 cm/sec TR max P.4 mmHg ECHO/Echo Complete W/ Contrast Interpretation Summary The LV ejection fraction is 70 %. Left ventricular systolic function is hyperdynamic. Ordering Physician: Andrade Tapia Performed By: Lauren Villafana, [facility] 04/02/25 1445 Date _ Patrick Rene MD CC: Dr. Andrade Tapia DO; Dr. Sylvia Lizama MD ~ Date Dictated: 04/02/25936 Date Transcribed: 04/02/25 144 [employer] Supervisor: Signed [facility] Glucose measurement at bedsi deOrdered By: Andrade Tapia on 04-02-2025 Glucose [Mass/Vol] 146 mg/dL High 74-106 [facility] Comment on above: MANAGEMENT OF PATIEN T CARE PER NURSING PROTOCOL LDL calc ser/plasOrdered By: Andrade Tapia on 07-12-2025 Cholesterol in LDL [Mass/Vol] 109 mg/dL [facility] Comment on above: Ezjcpswjoh=315-410 m g/dL & Higher Qrfe=430 mg/dL or greater Lipid Profileon 04-02-2025 CHOL:HDL 5.13 Normal [facility] Comment on above: Order Comment: 'TROP ' Serial specimen #1, #2 or #3: 1 Performed By: #### L 500.2500, L100.0100, L501.4020 #### [facility] [address] [place], [address] Cholesterol [Mass/Vol] 176 mg/dL Normal <=200 [facility] Comment on above: Order Comment: 'TROP ' Serial specimen #1, #2 or #3: 1 Result Comment: Chol esterol level, Desirable <200 mg/dL Borderline high cholesterol 200-239 mg/dL High cholesterol >=240 mg/dL Recommendations of the NCEP Adult Treatment Panel for the following risk-cutoff thresholds for the [place] population. Performed By: #### L 500.2500, L100.0100, L501.4020 #### [facility] [address] [place], [address] Cholesterol in HDL [Mass/Vol] 34 mg/dL Low [facility] Comment on above: Order Comment: 'TROP ' Serial specimen #1, #2 or #3: 1 Result Comment: Yady onal Cholesterol Education Program (NCEP) guidelines: <40 mg/dL: Low HDL-cholesterol (major risk factor for CHD) >= 60 mg/dL: High HDL-cholesterol (negative risk factor for CHD) HDL-cholesterol is affected by a number of factors, e.g. smoking, exercise, hormones, sex and age. Performed By: #### L 500.2500, L100.0100, L501.4020 #### [facility] [address] [place], [address] Cholesterol in LDL [Mass/Vol] 109 mg/dL Normal [facility] Comment on above: Order Comment: 'TROP ' Serial specimen #1, #2 or #3: 1 Result Comment: Bord ewyeeo=720-649 mg/dL Higher Vrvz=608 mg/dL or greater Performed By: #### L 500.2500, L100.0100, L501.4020 #### [facility] [address] [place], [address] Cholesterol in VLDL [Mass/Vol] 32 mg/dL Normal 5-40 [facility] Comment on above: Order Comment: 'TROP ' Serial specimen #1, #2 or #3: 1 Performed By: #### L 500.2500, L100.0100, L501.4020 #### [facility] [address] [place], [address] Triglyceride [Mass/Vol] 162 mg/dL Normal [facility] Comment on above: Order Comment: 'TROP ' Serial specimen #1, #2 or #3: 1 Result Comment: The drugs N-Acetylcysteine and Metamizole may falsely depress this assay. Normal range: <150 mg/dL Borderline High: 150-199 mg/dL High: 200-499 mg/dL Very High: >500 mg/dL Performed By: #### L 500.2500, L100.0100, L501.4020 #### [facility] [address] [place], [address] Screening total cholesterol/ high density lipoprotein (HDL) cholesterol ratioOrdered By: Andrade Tapia on 04-02-2025 Cholesterol.total/Edith sterol in HDL [Mass ratio] 5.13 {ratio} [facility] Serum or plasma cholesterol in HDL measurement (mass/volume)Ordered By: Andrade Tapia on 04-02-2025 Cholesterol in HDL [Mass/Vol] 34 mg/dL Low >40 [facility] Comment on above: National Cholesterol Education Program (NCEP) guidelines:<40 mg/dL: Low HDL-cholesterol (major risk factor for CHD)>= 60 mg/dL: High HDL-cholesterol (negative risk factor for CHD)HDL-cholesterol is affected by a number of factors, e.g. smoking, exercise, hormones, sex and age. Serum or plasma cholesterol measurement (mass/volume)Ordered By: Andrade Tapia on 04-02-2025 Cholesterol [Mass/Vol] 176 mg/dL <201 [facility] Comment on above: Cholesterol level, D esirable <200 mg/dLBorderline high cholesterol 200-239 mg/dLHigh cholesterol >=240 mg/dLRecommendations of the NCEP Adult Treatment Panel for the following risk-cutoff thresholds for the [place] population. Triglycerides measurementOrd ered By: Andrade Tapia on 04-02-2025 Triglyceride [Mass/Vol] 162 mg/dL <199 [facility] Comment on above: The drugs N-Acetylcy steine and Metamizole may falsely depress this assay. Normal range: <150 mg/dLBorderline High: 150-199 mg/dLHigh: 200-499 mg/dLVery High: >500 mg/dL Absolute lymphocyte countOrd ered By: ED PROVIDER on 04-01-2025 Lymphocytes Auto (Unsp spec) [#/Vol] 1.40 10*3/uL 0.83-4.51 [facility] Absolute neutrophil countOrd ered By: ED PROVIDER on 04-01-2025 Neutrophils (Bld) [#/Vol] 3.7 10*3/uL 2.0-7.7 [facility] Activated partial thrombopla stin time (aPTT) in platelet poor plasma by coagulation aOrdered By: Chase Jones on 04-01-2025 aPTT Coag (PPP) [Time] 32.1 s 24.1-36.2 [facility] Anion gap in Serum or Plasma Ordered By: Chase Jones on 04-01-2025 Anion gap [Moles/Vol] 11 mmol/L - [facility] Automated lymphocyte count a s percentage of total leukocytesOrdered By: ED PROVIDER on 04-01-2025 Lymphocytes/100 WBC Auto (Unsp spec) 23.5 % - [facility] BUN/creatinine ratioOrdered By: Chase Jones on 04-01-2025 Urea nitrogen/Creatinine [Mass ratio] 15.9 mg/mg - [facility] Basic Metabolic Profile (BMP )on 04-01-2025 BUN/CRE 15.9 RATIO Normal 07-11 [facility] Comment on above: Performed By: #### L 100.0100, L500.2500 ####[facility] [address] [place], [address] Calcium [Mass/Vol] 9.9 mg/dL Normal 7.6-11.0 [facility] Comment on above: Performed By: #### L 100.0100, L500.2500 ####[facility] [address] [place], [address] Chloride [Moles/Vol] 103 mmol/L Normal 98-108 [facility] Comment on above: Performed By: #### L 100.0100, L500.2500 ####[facility] [address] [place], [address] CO2 [Moles/Vol] 27.5 mmol/L Normal 21.0-32.0 [facility] Comment on above: Performed By: #### L 100.0100, L500.2500 ####[facility] [address] [place], [address] Creatinine [Mass/Vol] 0.91 mg/dL Normal 0.70-1.20 [facility] Comment on above: Performed By: #### L 100.0100, L500.2500 ####[facility] [address] [place], [address] GAP 11 Normal 5-15 [facility] Comment on above: Performed By: #### L 100.0100, L500.2500 ####[facility] [address] [place], [address] GFR/1.73 sq M.predicted among non-blacks MDRD (S/P/Bld) [Vol rate/Area] 64 mL/min/{1.73_m2} Normal >60 [facility] Comment on above: Result Comment: mL/m in/1.73m2 CKD-EPI Creatinine Equation (2020) Performed By: #### L 100.0100, L500.2500 ####[facility] [address] [place], [address] Glucose [Mass/Vol] 107 mg/dL High 70-99 [facility] Comment on above: Performed By: #### L 100.0100, L500.2500 ####[facility] [address] [place], [address] Potassium [Moles/Vol] 4.2 mmol/L Normal 3.3-5.1 [facility] Comment on above: Performed By: #### L 100.0100, L500.2500 ####[facility] [address] [place], [address] Sodium [Moles/Vol] 141 mmol/L Normal 133-145 [facility] Comment on above: Performed By: #### L 100.0100, L500.2500 ####[facility] [address] [place], [address] Urea nitrogen [Mass/Vol] 14 mg/dL Normal 4-19 [facility] Comment on above: Performed By: #### L 100.0100, L500.2500 ####[facility] [address] [place], [address] Basophil percentageOrdered B y: ED PROVIDER on 04-01-2025 Basophils/100 WBC (Bld) 0.2 % 0-1 [facility] Bedside Glucoseon 04-01-2025 FINGERSTICK GLU 109 mg/dL High 74-106 [facility] Comment on above: Result Comment: ALISSON POLO OF PATIENT CARE PER NURSING PROTOCOL Performed By: #### L 501.080 ####[facility] [address] [place], [address] Brain without Contraston Brain without Contrast [facility] Imaging Services [address] [place] [address] Brain without Contrast MR#: [id number] Acct: [id number] Name: LISA UP Rep #: [id number] : 1945 F 79 From: Jay Jay Pearson MD PCP: Dr. Sylvia Lizama MD Status: ADM IN Study: Brain without Contrast Date of Exam: 04/01/25 Exam# [id number] Ordering Dr: Andrade Tapia DO PROCEDURE: BRAIN WITHOUT CONTRAST 04/01/2025 REASON FOR EXAM: VERTIGO TECHNIQUE: BRAIN WITHOUT CONTRAST Multiplanar and multisequence images were obtained. COMPARISON: 11/26/2024 CT. FINDINGS: Moderate global parenchymal atrophy. Gput-pt-pdplgnyw chronic microvascular ischemia. No evidence of acute hemorrhage or infarction. No extra-axial blood or fluid collections. Left maxillary sinus and right ethmoid sinus retention cysts. The mastoid air cells are clear. MRI/Brain without Contrast IMPRESSION: No acute intracranial abnormality. Reading Location: [place] [address] CC: Dr. Andrade Tapia DO; Dr. Sylvia Lizama MD [employer] Supervisor: Signed Normal [facility] CBC W/Diff, Automatedon 03-22 Absolute Lymph 1.40 X10 3/uL Normal 0.83-4.51 [facility] Comment on above: Performed By: #### L 100.0100, L500.2500 ####[facility] [address] [place], [address] Absolute Neut 3.7 X10 3/uL Normal 2.0-7.7 [facility] Comment on above: Performed By: #### L 100.0100, L500.2500 ####[facility] [address] [place], [address] Basophils/100 WBC (Bld) 0.2 % Normal 0-1 [facility] Comment on above: Performed By: #### L 100.0100, L500.2500 ####[facility] [address] [place], [address] Eosinophils/100 WBC (Bld) 3.9 % Normal 0-5 [facility] Comment on above: Performed By: #### L 100.0100, L500.2500 ####[facility] [address] [place], [address] Erythrocyte distribution width (RBC) [Ratio] 12.5 % Normal 11.6-14.6 [facility] Comment on above: Performed By: #### L 100.0100, L500.2500 ####[facility] [address] [place], [address] Hematocrit (Bld) [Volume fraction] 41.1 % Normal 37-47 [facility] Comment on above: Performed By: #### L 100.0100, L500.2500 ####[facility] [address] [place], [address] Hemoglobin (Bld) [Mass/Vol] 13.4 g/dL Normal 12.0-15.0 [facility] Comment on above: Performed By: #### L 100.0100, L500.2500 ####[facility] [address] [place], [address] IG% 0.200 Normal 0.0-0.9 [facility] Comment on above: Result Comment: IG% - Immature Granulocytes (promyelocytes, myelocytes and metamyelocytes) > 1% indicates that a LEFT SHIFT is Present. Performed By: #### L 100.0100, L500.2500 ####[facility] [address] [place], [address] Lymphocytes/100 WBC (Bld) 23.5 % Normal 19-41 [facility] Comment on above: Performed By: #### L 100.0100, L500.2500 ####[facility] [address] [place], [address] MCH (RBC) [Entitic mass] 31.5 pg Normal 27.0-32.0 [facility] Comment on above: Performed By: #### L 100.0100, L500.2500 ####[facility] [address] [place], [address] MCHC (RBC) [Mass/Vol] 32.6 g/dL Normal 32-36 [facility] Comment on above: Performed By: #### L 100.0100, L500.2500 ####[facility] [address] [place], [address] MCV (RBC) [Entitic vol] 96.7 fL Normal 81-99 [facility] Comment on above: Performed By: #### L 100.0100, L500.2500 ####[facility] [address] [place], [address] Monocytes/100 WBC (Bld) 9.6 % Normal 0-10 [facility] Comment on above: Performed By: #### L 100.0100, L500.2500 ####[facility] [address] [place], [address] Neutrophils/100 WBC (Bld) 62.6 % Normal 47-70 [facility] Comment on above: Performed By: #### L 100.0100, L500.2500 ####[facility] [address] [place], [address] Nucleated RBC (Bld) [#/Vol] 0 10*3/uL Normal 0-5 [facility] Comment on above: Performed By: #### L 100.0100, L500.2500 ####[facility] [address] [place], [address] Platelet mean volume (Bld) [Entitic vol] 10.1 fL Normal 6.2-12.0 [facility] Comment on above: Performed By: #### L 100.0100, L500.2500 ####[facility] [address] [place], [address] Platelets (Bld) [#/Vol] 147 10*3/uL Low 150-450 [facility] Comment on above: Performed By: #### L 100.0100, L500.2500 ####[facility] [address] [place], [address] RBC (Bld) [#/Vol] 4.25 10*6/uL Normal 4.2-5.4 [facility] Comment on above: Performed By: #### L 100.0100, L500.2500 ####[facility] [address] [place], [address] RDW SD 44.5 fl High 35.1-43.9 [facility] Comment on above: Performed By: #### L 100.0100, L500.2500 ####[facility] [address] [place], [address] WBC (Bld) [#/Vol] 6.0 10*3/uL Normal 4.4-11.0 [facility] Comment on above: Performed By: #### L 100.0100, L500.2500 ####[facility] [address] [place], [address] Carbon dioxide, total [Moles /volume] in Central venous bloodOrdered By: Chase Jones on 04-01-2025 CO2 [Moles/Vol] 27.5 mmol/L 21.0-32.0 [facility] Chloride assayOrdered By: Ug o Jones on 04-01-2025 Chloride [Moles/Vol] 103 mmol/L 98-108 [facility] Echo Complete W/ Contraston 04-01-2025 Echo Complete W/ Contrast [facility] Cardiovascular Services [address] [place] [address] Echo Complete W/ Contrast 04/02/25 0937 MR#: [id number] Acct: [id number] Name: LISA UP Rep #: [id number] : 1945 79 From: Patrick Rene MD Attending Dr: Dr. Andrade Tapia DO Status: ADM IN Ordering Dr: Andrade Tapia DO Date: 04/01/25 Location: [facility] Sex: F C Admitted: 04/01/25 Reason For Study Reason For Study: TIA/STROKE Procedure This was a 2D Doppler, Color Flow transthoracic echocardiogram. The study was technically difficult. Contrast injection was performed. Exam performed portable in patient room. Left Ventricle Left ventricular systolic function is hyperdynamic. The LV ejection fraction is 70 %. Mid cavitary dynamic gradient 22 with valsalva mm/Hg. No regional wall motion abnormalities noted. Right Ventricle Normal right ventricle. Normal systolic function. Tricuspid Valve Right ventricular systolic pressure estimated to be 22 mmHg. No tricuspid valve insufficiency. Aortic Valve The aortic valve is not well visualized. Trisinus/trileaflet aortic valve. There is no aortic stenosis. Pulmonic Valve Normal pulmonic valve. Great Vessels Normal sized aortic root. Normal inferior vena cava. Pericardium/Pleural No pericardial effusion. Epicardial fat. Medication Diluted definity 2ml given slow IV push to enhance endocardial definition. MMode/2D Measurements Calculations LVIDd: 3.4 cm IVSd: 1.5 cm LVOT diam: 2.0 cm LVIDs: 1.9 cm LVPWd: 1.3 cm LVOT area: 3.0 cm2 RVDd: 3.6 cm FS: 45.8 % asc Aorta Diam: 3.3 cm LAV(MOD-bp): 54.7 ml LVAd ap4: 34.1 cm2 LAV(MOD-bp) Indexed: 26.5 ml/m2 LVLd ap4: 8.7 cm LAV(MOD-sp2): 55.0 ml EDV(MOD-sp4): 110.4 ml LAV(MOD-sp4): 53.6 ml EDV(sp4-el): 112.8 ml LVAs ap4: 20.4 cm2 LVLs ap4: 7.6 cm ESV(MOD-sp4): 47.2 ml ESV(sp4-el): 46.3 ml EF(MOD-sp4): 57.3 % EF(sp4-el): 59.0 % SV(MOD-sp4): 63.2 ml SV(MOD-sp2): 50.1 ml LVAd ap2: 29.6 cm2 LVLd ap2: 8.2 cm SI(MOD-sp4): 30.6 ml/m2 SI(MOD-sp2): 24.2 ml/m2 EDV(MOD-sp2): 88.4 ml EDV(sp2-el): 91.3 ml LVAs ap2: 18.9 cm2 LVLs ap2: 7.6 cm ESV(MOD-sp2): 38.3 ml ESV(sp2-el): 39.6 ml EF(MOD-sp2): 56.7 % SV(sp4-el): 66.5 ml Ao sinus diam: 3.[address] Junction: 2.4 cm LA A4 area: 19.3 cm2 LA dimension(2D): 3.8 cm RA A4 area: 11.7 cm2 TAPSE: 2.0 cm Time Measurements MV dec time: 0.44 sec Doppler Measurements Calculations MV E max ruufs: 56.2 cm/sec Lat Peak E' Rufus: 7.5 cm/sec Med Peak E' Rufus: 7.5 cm/sec MV A max rufus: 79.4 cm/sec E/E' lat: 7.5 E/E' med: 7.5 MV E/A: 0.71 Ao V2 max: 121.2 cm/sec LV V1 max: 90.2 cm/sec MV dec slope: 128.5 cm/sec2 Ao max P.9 mmHg LV V1 max P.3 mmHg Ao V2 mean: 91.7 cm/sec LV V1 mean P.1 mmHg Ao mean P.6 mmHg LV V1 mean: 69.4 cm/sec Ao V2 VTI: 27.7 cm LV V1 VTI: 21.8 cm AV (velocity ratio): 0.79 GABRIELA(I,D): 2.4 cm2 GABRIELA(V,D): 2.2 cm2 SV(LVOT): 65.6 ml PA V2 max: 86.0 cm/sec TR max rufus: 208.5 cm/sec TR max P.4 mmHg ECHO/Echo Complete W/ Contrast Interpretation Summary The LV ejection fraction is 70 %. Left ventricular systolic function is hyperdynamic. Ordering Physician: Andrade Tapia Performed By: Lauren Villafana RDCS 04/02/25 1445 Date Patrick Rene MD CC: Dr. Andrade Tapia DO; Dr. Sylvia Lizama MD Date Dictated: 04/02/2537 Date Transcribed: 04/02/25 1445 [employer] Supervisor: Signed Normal [facility] Emergency Department Summary on 04-01-2025 Emergency Department Summary [facility] Medical Records Department [address] [place] [address] Emergency Department Summary 04/01/25 MR#: [id number] Acct: [id number] Name: LISA UP Rep #: [id number] : 1945 79 From: Chase Jones MD PCP: Dr. Sylvia Lizama MD Status:[facility] ER Location: ED HPI History of Present [...] on the computer because she would see double or double shadows. She denies headache. She denies [...] with circulation in her legs and stated it is bad . Prior similar symptoms: No Recent Illness/Hospitalizatio n: No [facility] Medical History DVT (deep venous thrombosis) Post-menopausal [...] 300 mg PO BID #4 caps 12/01/24 Unk nown Rx Allergy/AdvReac Type Severity Reaction Status Date / Time COVID-19 vaccine, mRNA, Allergy Anaphylaxis Verified 04/01/25 12:34 [id number], erythromycin base Allergy Rash Verified 04/01/25 12:34 [...] chills, fever(s), subjective or sweats Eyes Eyes: Rep (more content not included)... Normal [facility] Eosinophil percentageOrdered By: ED PROVIDER on 04-01-2025 Eosinophils/100 WBC (Bld) 3.9 % 0-5 [facility] Erythrocyte distribution wid th ratioOrdered By: ED PROVIDER on 04-01-2025 Erythrocyte distribution width (RBC) [Ratio] 12.5 % 11.6-14.6 [facility] Erythrocyte distribution wid th standard deviationOrdered By: ED PROVIDER on 04-01-2025 Erythrocyte distribution width (RBC) [Ratio] 44.5 fl High 35.1-43.9 [facility] Glomerular filtration rate ( GFR) estimation/1.73 sq m using serum, plasma, or whole bOrdered By: Chase Jones on 04-01-2025 GFR/1.73 sq M.predicted among non-blacks MDRD (S/P/Bld) [Vol rate/Area] 64 mL/min/{1.73_m2} >60 [facility] Comment on above: mL/min/1.73m2 CKD-EP I Creatinine Equation (2020) [facility] at [facility] deOrdered By: Chase Jones on 04-01-2025 Glucose [Mass/Vol] 109 mg/dL High 74-106 [facility] Comment on above: MANAGEMENT OF PATIEN T CARE PER NURSING PROTOCOL H AND P Exam - Hospitaliston 04-01-2025 H&P Exam - Hospitalist [facility] Medical Records Department [address] [place] [address] H P Exam - Hospitalist 04/01/25 1741 MR#: [id number] Acct: [id number] Name: LISA UP Rep #: [id number] : 1945 79 From: Andrade Tapia DO PCP: Dr. Sylvia Lizama MD Status:ADM IN Location: [place] [id number] HPI - General General Date of Admission: [...] the hospital service was contacted for admission. [facility] Medical History DVT (deep venous thrombosis) [...] 0.1 mg PO BID bp 30 days #60 tabs 03/26/24 11/25/24 Rx losartan 100 mg tablet 100 mg PO DAILY bp 07/04/24 History meclizine 25 mg tablet 25 mg PO TID dizziness 07/04/24 Un known History omeprazole 20 mg capsule,delayed 20 mg PO DAILY PRN acid reflux 11/25/24 History release albuterol sulfate 90 mcg/actuation 2 puff inhalation Q4H PRN Wheezi ng 11/26/24 11/25/24 History aerosol inhaler (Ventolin HFA) Allergy/AdvReac Type Severity Reaction Status Date / Time COVID-19 vaccine, mRNA, Allergy Anaphylaxis Verified 04/01/25 12:34 [id number], erythromycin base Allergy Rash Verified 04/01/25 12:34 [...] with prior back surgeries. Does have chronic numbness in her legs due to neuropathy from her [...] 15:29 04/01/25 15:30 Temperature Temperature Source Pulse Rat (more content not included)... Normal [facility] Hematocrit Auto (Bld) [Volum e fraction]Ordered By: ED PROVIDER on 04-01-2025 Hematocrit (Bld) [Volume fraction] 41.1 % 37-47 [facility] Hemoglobin measurementOrdere d By: ED PROVIDER on 04-01-2025 Hemoglobin (Bld) [Mass/Vol] 13.4 g/dL 12.0-15.0 [facility] Immature granulocytes/100 WB C Auto (Bld)Ordered By: ED PROVIDER on 04-01-2025 Immature granulocytes/100 WBC (Bld) 0.200 % 0.0-0.9 [facility] Comment on above: IG% - Immature Granu locytes (promyelocytes, myelocytes and metamyelocytes) > 1% indicates that a LEFT SHIFT is Present. International normalized rat io (INR) calculationOrdered By: Chase Jones on 04-01-2025 INR Coag (Bld) [Relative time] 1.4 {INR} [facility] L499.0042on 04-01-2025 Trop T High Sen 11 ng/L Normal <=14 [facility] Comment on above: Performed By: #### L 499.0042 #### [facility] Laboratory [address] [place], [address] L501.4021on 04-01-2025 Trop T High Sen 12 ng/L Normal <=14 [facility] Comment on above: Performed By: #### L 300.4310, L501.4021, L300.3900 ####[facility] [address] [facility] [place], [address] MCV (mean corpuscular volume ) determinationOrdered By: ED PROVIDER on 04-01-2025 MCV (RBC) [Entitic vol] 96.7 fL 81-99 [facility] Magnetic resonance imaging r eportOrdered By: Jay Jay Pearson on 04-01-2025 Study report [facility] Imaging Services [address] [place], [place] [address] (721) Brain without Contrast MR#: [id number] Acct: [id number] Name: LISA UP Rep #: [id number] : 1945 F 79 From: Silviano Pearson MD PCP: Dr. Sylvia Lizama MD Status: ADM I N Study:Brain without Contrast Date of Exam: 04/01/25 Exam# [id number] Ordering Dr: Andrade Tapia DO PROCEDURE: BRAIN WITHOUT CONTRAST 04/01/2025 REASON FOR EXAM: VERTIGO TECHNIQUE: BRAIN WITHOUT CONTRAST Multiplanar and multisequence images were obtained. COMPARISON: 11/26/2024 CT. FINDINGS: Moderate global parenchymal atrophy. Hntu-kd-rctdzafe chronic microvascular ischemia. No evidence of acute hemorrhage or infarction. No extra-axial blood or fluid collections. Left maxillary sinus and right ethmoid sinus retention cysts. The mastoid air cells are clear. MRI/Brain without Contrast IMPRESSION: No acute intracranial abnormality. Reading Location: [place] [address] CC: Dr. Andrade Tapia DO; Dr. Sylvia Lizama MD ~ [employer] Supervisor: Signed [facility] Mean corpuscular hemoglobin (MCH) determinationOrdered By: ED PROVIDER on 04-01-2025 MCH (RBC) [Entitic mass] 31.5 pg 27.0-32.0 [facility] Mean corpuscular hemoglobin concentration (MCHC) determinationOrdered By: ED PROVIDER on 04-01-2025 MCHC (RBC) [Mass/Vol] 32.6 g/dL 32-36 [facility] Mean platelet volume determi nationOrdered By: ED PROVIDER on 04-01-2025 Platelet mean volume (Bld) [Entitic vol] 10.1 fL 6.2-12.0 [facility] Monocyte percentageOrdered B y: ED PROVIDER on 04-01-2025 Monocytes/100 WBC (Bld) 9.6 % 0-10 [facility] Neutrophil percentageOrdered By: ED PROVIDER on 04-01-2025 Neutrophils/100 WBC (Bld) 62.6 % 47-70 [facility] Nucleated red blood cell per centageOrdered By: ED PROVIDER on 04-01-2025 Nucleated RBC/100 WBC (Bld) [Ratio] 0 % 0-5 [facility] Partial Thromboplast Timeon 04-01-2025 aPTT Coag (Bld) [Time] 32.1 s Normal 24.1-36.2 [facility] Comment on above: Performed By: #### L 300.4310, L501.4021, L300.3900 #### [facility] [address] [place], [address] Platelet countOrdered By: ED PROVIDER on 04-01-2025 Platelets (Bld) [#/Vol] 147 10*3/uL Low 150-450 [facility] Potassium measurement (mass/ volume)Ordered By: Chase Jones on 04-01-2025 Potassium (Unsp spec) [Mass/Vol] 4.2 mmol/L 3.3-5.1 [facility] Prothrombin Time w/INRon INR Coag (PPP) [Relative time] 1.4 {INR} Normal [facility] Comment on above: Performed By: #### L 300.4310, L501.4021, L300.3900 #### [facility] [address] [place], [address] PT Coag (PPP) [Time] 17.0 s High 11.7-14.9 [facility] Comment on above: Performed By: #### L 300.4310, L501.4021, L300.3900 #### [facility] [address] [place], [address] Prothrombin timeOrdered By: Chase Jones on 04-01-2025 PT Coag (PPP) [Time] 17.0 s High 11.7-14.9 [facility] RBC Auto (Bld) [#/Vol]Ordere d By: ED PROVIDER on 04-01-2025 RBC (Bld) [#/Vol] 4.25 10*6/uL 4.2-5.4 [facility] STROKE CTA Head AND Neck W/C onon 04-01-2025 STROKE CTA Head AND Neck W/Con [facility] Imaging Services [address] [place] [address] STROKE CTA Head AND Neck W/Con MR#: [id number] Acct: [id number] Name: LISA UP Rep #: [id number] : 1945 F 79 From: Mariano Redman MD PCP: Dr. Sylvia Lizama MD Status: REG ER Study: STROKE CTA Head AND Neck W/Con Date of Exam: 0 04/01/25 Exam# [id number] Ordering Dr: Chase Jones MD PROCEDURE: STROKE CTA HEAD AND [...] mainly within the posterior right ethmoid air cells and floor of left maxillary sinus. No mastoid effusions. Degenerative changes of the cervical spine. CT/STROKE CTA Head AND Neck W/Con IMPRESSION: 1. Widely patent intracranial and cervical arterial vasculature. 2. No evidence of acute intracranial pathology. 3. Mild volume loss and chronic microangiopathic changes. Reading Location: [facility] CC: Dr. Chase Jones MD; Dr. Sylvia Lizama MD [employer] Supervisor: Signed Normal [facility] Serum creatinine measurement (mass/volume)Ordered By: Chase Jones on 04-01-2025 Creatinine [Mass/Vol] 0.91 mg/dL 0.70-1.20 [facility] Serum glucose measurement (m ass/volume)Ordered By: Chase Jones on 04-01-2025 Glucose [Mass/Vol] 107 mg/dL High 70-99 [facility] Serum or plasma calcium cirilo urement (mass/volume)Ordered By: Chase Jones on 04-01-2025 Calcium [Mass/Vol] 9.9 mg/dL 7.6-11.0 [facility] Serum or plasma urea nitroge n measurement (mass/volume)Ordered By: Chase Jones on 04-01-2025 Urea nitrogen [Mass/Vol] 14 mg/dL 4-19 [facility] Sodium levelOrdered By: Chase Jones on 04-01-2025 Sodium [Moles/Vol] 141 mmol/L 133-145 [facility] Troponin T.cardiac [Mass/vol ume] in Serum or Plasma by High sensitivity methodOrdered By: Chase Jones on 04-01-2025 Troponin T.cardiac High sensitivity method [Mass/Vol] 11 ng/L <14 [facility] Troponin T.cardiac High sensitivity method [Mass/Vol] 12 ng/L <14 [facility] Comment on above: Delta: 18 on 5-1405 White blood cell (WBC) count Ordered By: ED PROVIDER on 04-01-2025 WBC (Bld) [#/Vol] 6.0 10*3/uL 4.4-11.0 [facility] Absolute lymphocyte countOrd ered By: Rafat Casper on 12-15-2024 Lymphocytes Auto (Unsp spec) [#/Vol] 1.17 10*3/uL 0.83-4.51 [facility] Absolute neutrophil countOrd ered By: Rafat Casper on 12-15-2024 Neutrophils (Bld) [#/Vol] 2.6 10*3/uL 2.0-7.7 [facility] Anion gap in Serum or Plasma Ordered By: Rafat Casper on 12-15-2024 Anion gap [Moles/Vol] 10 mmol/L 5-15 [facility] Automated lymphocyte count a s percentage of total leukocytesOrdered By: Rafat Casper on 12-15-2024 Lymphocytes/100 WBC Auto (Unsp spec) 24.9 % 19-41 [facility] BUN/creatinine ratioOrdered By: Rafat Casper on 12-15-2024 Urea nitrogen/Creatinine [Mass ratio] 2.6 mg/mg Low 10-20 [facility] Basophil percentageOrdered B y: Rafat Casper on 12-15-2024 Basophils/100 WBC (Bld) 0.2 % 0-1 [facility] Carbon dioxide, total [Moles /volume] in Central venous bloodOrdered By: Rafat Casper on 12-15-2024 CO2 [Moles/Vol] 23.0 mmol/L 21.0-32.0 [facility] Chloride assayOrdered By: Robert Casper on 12-15-2024 Chloride [Moles/Vol] 109 mmol/L High 98-108 [facility] Eosinophil percentageOrdered By: Rafat Casper on 12-15-2024 Eosinophils/100 WBC (Bld) 6.2 % High 0-5 [facility] Erythrocyte distribution wid th ratioOrdered By: Rafat Casper on 12-15-2024 Erythrocyte distribution width (RBC) [Ratio] 13.7 % 11.6-14.6 [facility] Erythrocyte distribution wid th standard deviationOrdered By: aRfat Casper on 12-15-2024 Erythrocyte distribution width (RBC) [Ratio] 47.0 fl High 35.1-43.9 [facility] Glomerular filtration rate ( GFR) estimation/1.73 sq m using serum, plasma, or whole bOrdered By: Rafat Casper on 12-15-2024 GFR/1.73 sq M.predicted among non-blacks MDRD (S/P/Bld) [Vol rate/Area] 75 mL/min/{1.73_m2} >60 [facility] Comment on above: mL/min/1.73m2 CKD-EP I Creatinine Equation (2020) Hematocrit Auto (Bld) [Volum e fraction]Ordered By: Rafat Casper on 12-15-2024 Hematocrit (Bld) [Volume fraction] 32.9 % Low 37-47 [facility] Hemoglobin measurementOrdere d By: Rafat Casper on 12-15-2024 Hemoglobin (Bld) [Mass/Vol] 10.4 g/dL Low 12.0-15.0 [facility] Immature granulocytes/100 WB C Auto (Bld)Ordered By: Rafat Casper on 12-15-2024 Immature granulocytes/100 WBC (Bld) 0.600 % 0.0-0.9 [facility] Comment on above: IG% - Immature Granu locytes (promyelocytes, myelocytes and metamyelocytes) > 1% indicates that a LEFT SHIFT is Present. MCV (mean corpuscular volume ) determinationOrdered By: Rafat Casper on 12-15-2024 MCV (RBC) [Entitic vol] 97.6 fL 81-99 [facility] Mean corpuscular hemoglobin (MCH) determinationOrdered By: Rafat Casper on 12-15-2024 MCH (RBC) [Entitic mass] 30.9 pg 27.0-32.0 [facility] Mean corpuscular hemoglobin concentration (MCHC) determinationOrdered By: Rafat Casper on 12-15-2024 MCHC (RBC) [Mass/Vol] 31.6 g/dL Low 32-36 [facility] Mean platelet volume determi nationOrdered By: Rafat Casper on 12-15-2024 Platelet mean volume (Bld) [Entitic vol] 10.4 fL 6.2-12.0 [facility] Monocyte percentageOrdered B y: Rafat Casper on 12-15-2024 Monocytes/100 WBC (Bld) 13.2 % High 0-10 [facility] Neutrophil percentageOrdered By: Rafat Casper on 12-15-2024 Neutrophils/100 WBC (Bld) 54.9 % 47-70 [facility] Nucleated red blood cell per centageOrdered By: Rafat Casper on 12-15-2024 Nucleated RBC/100 WBC (Bld) [Ratio] 0 % 0-5 [facility] Platelet countOrdered By: Robert monikalouis Casper on 12-15-2024 Platelets (Bld) [#/Vol] 142 10*3/uL Low 150-450 [facility] Potassium measurement (mass/ volume)Ordered By: Rafat Casper on 12-15-2024 Potassium (Unsp spec) [Mass/Vol] 4.1 mmol/L 3.3-5.1 [facility] RBC Auto (Bld) [#/Vol]Ordere d By: Rafat Casper on 12-15-2024 RBC (Bld) [#/Vol] 3.37 10*6/uL Low 4.2-5.4 [facility] Serum creatinine measurement (mass/volume)Ordered By: Rafat Casper on 12-15-2024 Creatinine [Mass/Vol] 0.79 mg/dL 0.70-1.20 [facility] Serum glucose measurement (m ass/volume)Ordered By: Rafat Casper on 12-15-2024 Glucose [Mass/Vol] 99 mg/dL 70-99 [facility] Serum or plasma calcium cirilo urement (mass/volume)Ordered By: Rafat Casper on 12-15-2024 Calcium [Mass/Vol] 9.1 mg/dL 7.6-11.0 [facility] Serum or plasma urea nitroge n measurement (mass/volume)Ordered By: Rafat Casper on 12-15-2024 Urea nitrogen [Mass/Vol] 2 mg/dL Low 4-19 [facility] Sodium levelOrdered By: Shalini Casper on 12-15-2024 Sodium [Moles/Vol] 142 mmol/L 133-145 [facility] White blood cell (WBC) count Ordered By: Rafat Casper on 12-15-2024 WBC (Bld) [#/Vol] 4.7 10*3/uL 4.4-11.0 [facility] Absolute lymphocyte countOrd ered By: Rafat Casper on 12-08-2024 Lymphocytes Auto (Unsp spec) [#/Vol] 0.97 10*3/uL 0.83-4.51 [facility] Absolute neutrophil countOrd ered By: Rafat Casper on 12-08-2024 Neutrophils (Bld) [#/Vol] 2.3 10*3/uL 2.0-7.7 [facility] Anion gap in Serum or Plasma Ordered By: Robertmonikajoséfrannie Blackwoodcarolynflavio on 12-08-2024 Anion gap [Moles/Vol] 11 mmol/L 5-15 [facility] Automated lymphocyte count a s percentage of total leukocytesOrdered By: Darienfrannie Blackwoodcarolynflavio on 12-08-2024 Lymphocytes/100 WBC Auto (Unsp spec) 22.9 % 19- [facility] BUN/creatinine ratioOrdered By: Robertmonikadanielsvillefrannie Jaisoncarolynflavio on 12-08-2024 Urea nitrogen/Creatinine [Mass ratio] 14.9 mg/mg 10-20 [facility] Basophil percentageOrdered B y: Rafat Jaisoncarolynflavio on 12-08-2024 Basophils/100 WBC (Bld) 0.5 % 0-1 [facility] Carbon dioxide, total [Moles /volume] in Central venous bloodOrdered By: Rafat Jaisoncarolynflavio on 12-08-2024 CO2 [Moles/Vol] 22.9 mmol/L 21.0-32.0 [facility] Chloride assayOrdered By: Robert maureen Jaisoncarolynflavio on 12-08-2024 Chloride [Moles/Vol] 106 mmol/L 98-108 [facility] Eosinophil percentageOrdered By: Rafat Jaisoncarolynflavio on 12-08-2024 Eosinophils/100 WBC (Bld) 5.7 % High 0-5 [facility] Erythrocyte distribution wid th ratioOrdered By: Rafat Jaisoncarolynflavio on 12-08-2024 Erythrocyte distribution width (RBC) [Ratio] 12.7 % 11.6-14.6 [facility] Erythrocyte distribution wid th standard deviationOrdered By: victor hugofrannie Jaisoncarolynflavio on 12-08-2024 Erythrocyte distribution width (RBC) [Ratio] 44.6 fl High 35.1-43.9 [facility] Glomerular filtration rate ( GFR) estimation/1.73 sq m using serum, plasma, or whole bOrdered By: Rafat Casper on 12-08-2024 GFR/1.73 sq M.predicted among non-blacks MDRD (S/P/Bld) [Vol rate/Area] 71 mL/min/{1.73_m2} >60 [facility] Comment on above: mL/min/1.73m2 CKD-EP I Creatinine Equation (2020) Hematocrit Auto (Bld) [Volum e fraction]Ordered By: Rafat Casper on 12-08-2024 Hematocrit (Bld) [Volume fraction] 33.1 % Low 37-47 [facility] Hemoglobin measurementOrdere d By: Rafat Casper on 12-08-2024 Hemoglobin (Bld) [Mass/Vol] 10.5 g/dL Low 12.0-15.0 [facility] Immature granulocytes/100 WB C Auto (Bld)Ordered By: Rafat Casper on 12-08-2024 Immature granulocytes/100 WBC (Bld) 2.100 % High 0.0-0.9 [facility] Comment on above: IG% - Immature Granu locytes (promyelocytes, myelocytes and metamyelocytes) > 1% indicates that a LEFT SHIFT is Present. MCV (mean corpuscular volume ) determinationOrdered By: Rafat Casper on 12-08-2024 MCV (RBC) [Entitic vol] 96.5 fL 81-99 [facility] Mean corpuscular hemoglobin (MCH) determinationOrdered By: Rafat Casper on 12-08-2024 MCH (RBC) [Entitic mass] 30.6 pg 27.0-32.0 [facility] Mean corpuscular hemoglobin concentration (MCHC) determinationOrdered By: Rafat Casper on 12-08-2024 MCHC (RBC) [Mass/Vol] 31.7 g/dL Low 32-36 [facility] Mean platelet volume determi nationOrdered By: Rafat Casper on 12-08-2024 Platelet mean volume (Bld) [Entitic vol] 10.4 fL 6.2-12.0 [facility] Monocyte percentageOrdered B y: Rafat Casper on 12-08-2024 Monocytes/100 WBC (Bld) 13.7 % High 0-10 [facility] Neutrophil percentageOrdered By: Rafat Casper on 12-08-2024 Neutrophils/100 WBC (Bld) 55.1 % 47-70 [facility] Nucleated red blood cell per centageOrdered By: Rafat Jaisonjeff on 12-08-2024 Nucleated RBC/100 WBC (Bld) [Ratio] 0 % 0-5 [facility] Platelet countOrdered By: Robert maureen Jaisoncarolynflavio on 12-08-2024 Platelets (Bld) [#/Vol] 152 10*3/uL 150-450 [facility] Potassium measurement (mass/ volume)Ordered By: Robertmonikajoséfrannie Blackwoodjeff on 12-08-2024 Potassium (Unsp spec) [Mass/Vol] 4.2 mmol/L 3.3-5.1 [facility] RBC Auto (Bld) [#/Vol]Ordere d By: Rafat Jaisonjeff on 12-08-2024 RBC (Bld) [#/Vol] 3.43 10*6/uL Low 4.2-5.4 [facility] Serum creatinine measurement (mass/volume)Ordered By: Robertmonikajoséfrannie Blackwoodjeff on 12-08-2024 Creatinine [Mass/Vol] 0.83 mg/dL 0.70-1.20 [facility] Serum glucose measurement (m ass/volume)Ordered By: Rafat Casper on 12-08-2024 Glucose [Mass/Vol] 97 mg/dL 70-99 [facility] Serum or plasma calcium cirilo urement (mass/volume)Ordered By: Rafat Blackwoodcarolynflavio on 12-08-2024 Calcium [Mass/Vol] 9.1 mg/dL 7.6-11.0 [facility] Serum or plasma urea nitroge n measurement (mass/volume)Ordered By: Robertmaureen Blackwoodcarolynflavio on 12-08-2024 Urea nitrogen [Mass/Vol] 12 mg/dL 4-19 [facility] Sodium levelOrdered By: Robertmonika louis Pennie on 12-08-2024 Sodium [Moles/Vol] 140 mmol/L 133-145 [facility] TSH DL <= 0.005 mIU/L QnOrde red By: Rafat Casper on 12-08-2024 TSH Qn 4.280 uIU/mL High 0.300-4.200 [facility] White blood cell (WBC) count Ordered By: Shalinijoséfrannie Blackwoodcarolynflavio on 12-08-2024 WBC (Bld) [#/Vol] 4.2 10*3/uL Low 4.4-11.0 [facility] Absolute lymphocyte countOrd ered By: Rafat Blackwoodcarolynflavio on 12-02-2024 Lymphocytes Auto (Unsp spec) [#/Vol] 0.88 10*3/uL 0.83-4.51 [facility] Absolute neutrophil countOrd ered By: Rafat Blackwoodcarolynflavio on 12-02-2024 Neutrophils (Bld) [#/Vol] 2.1 10*3/uL 2.0-7.7 [facility] Anion gap in Serum or Plasma Ordered By: Rafat Blackwoodcarolynflavio on 12-02-2024 Anion gap [Moles/Vol] 12 mmol/L 5-15 [facility] Automated lymphocyte count a s percentage of total leukocytesOrdered By: Rafat Blackwoodcarolynflavio on 12-02-2024 Lymphocytes/100 WBC Auto (Unsp spec) 24.0 % 19-41 [facility] BUN/creatinine ratioOrdered By: Rafat Blackwoodcarolynflavio on 12-02-2024 Urea nitrogen/Creatinine [Mass ratio] 27.6 mg/mg High 10-20 [facility] Basophil percentageOrdered B y: Robertmonikajoséfrannie Blackwoodcarolynflavio on 12-02-2024 Basophils/100 WBC (Bld) 0.0 % 0-1 [facility] Bilirubin, totalOrdered By: Robertmonikajoséfrannie Blackwoodcarolynflavio on 12-02-2024 Bilirubin [Mass/Vol] 0.21 mg/dL 0.00-1.30 [facility] Carbon dioxide, total [Moles /volume] in Central venous bloodOrdered By: Rafat Blackwoodcarolynflavio on 12-02-2024 CO2 [Moles/Vol] 22.4 mmol/L 21.0-32.0 [facility] Chloride assayOrdered By: Robert Casper on 12-02-2024 Chloride [Moles/Vol] 105 mmol/L 98-108 [facility] Eosinophil percentageOrdered By: Rafat Casper on 12-02-2024 Eosinophils/100 WBC (Bld) 4.4 % 0-5 [facility] Erythrocyte distribution wid th ratioOrdered By: Rafat Casper on 12-02-2024 Erythrocyte distribution width (RBC) [Ratio] 12.8 % 11.6-14.6 [facility] Erythrocyte distribution wid th standard deviationOrdered By: Rafat Casper on 12-02-2024 Erythrocyte distribution width (RBC) [Ratio] 43.9 fl 35.1-43.9 [facility] Glomerular filtration rate ( GFR) estimation/1.73 sq m using serum, plasma, or whole bOrdered By: Rafat Casper on 12-02-2024 GFR/1.73 sq M.predicted among non-blacks MDRD (S/P/Bld) [Vol rate/Area] 89 mL/min/{1.73_m2} >60 [facility] Comment on above: mL/min/1.73m2 CKD-EP I Creatinine Equation (2020) Hematocrit Auto (Bld) [Volum e fraction]Ordered By: Rafat Casper on 12-02-2024 Hematocrit (Bld) [Volume fraction] 32.0 % Low 37-47 [facility] Hemoglobin measurementOrdere d By: Rafat Casper on 12-02-2024 Hemoglobin (Bld) [Mass/Vol] 10.3 g/dL Low 12.0-15.0 [facility] Immature granulocytes/100 WB C Auto (Bld)Ordered By: Rafat Casper on 12-02-2024 Immature granulocytes/100 WBC (Bld) 1.600 % High 0.0-0.9 [facility] Comment on above: IG% - Immature Granu locytes (promyelocytes, myelocytes and metamyelocytes) > 1% indicates that a LEFT SHIFT is Present. Laboratory - Chemistry and C hemistry - challengeOrdered By: Rafat Casper on 12-02-2024 AST [Catalytic activity/Vol] 22 U/L <32 [facility] MCV (mean corpuscular volume ) determinationOrdered By: Rafat Casper on 12-02-2024 MCV (RBC) [Entitic vol] 94.4 fL 81-99 [facility] Mean corpuscular hemoglobin (MCH) determinationOrdered By: Rafat Blackwoodcarolynflavio on 12-02-2024 MCH (RBC) [Entitic mass] 30.4 pg 27.0-32.0 [facility] Mean corpuscular hemoglobin concentration (MCHC) determinationOrdered By: Rafat Casper on 12-02-2024 MCHC (RBC) [Mass/Vol] 32.2 g/dL 32-36 [facility] Mean platelet volume determi nationOrdered By: Rafat Casper on 12-02-2024 Platelet mean volume (Bld) [Entitic vol] 10.4 fL 6.2-12.0 [facility] Monocyte percentageOrdered B y: Rafat Casper on 12-02-2024 Monocytes/100 WBC (Bld) 13.1 % High 0-10 [facility] Neutrophil percentageOrdered By: Rafat Blackwoodcarolynflavio on 12-02-2024 Neutrophils/100 WBC (Bld) 56.9 % 47-70 [facility] Nucleated red blood cell per centageOrdered By: Rafat Blackwoodcarolynflavio on 12-02-2024 Nucleated RBC/100 WBC (Bld) [Ratio] 0 % 0-5 [facility] Platelet countOrdered By: Robert victor hugofrannie Capser on 12-02-2024 Platelets (Bld) [#/Vol] 124 10*3/uL Low 150-450 [facility] Potassium measurement (mass/ volume)Ordered By: Rafat Casper on 12-02-2024 Potassium (Unsp spec) [Mass/Vol] 4.2 mmol/L 3.3-5.1 [facility] RBC Auto (Bld) [#/Vol]Ordere d By: Rafat Casper on 12-02-2024 RBC (Bld) [#/Vol] 3.39 10*6/uL Low 4.2-5.4 [facility] Serum creatinine measurement (mass/volume)Ordered By: Rafat Casper on 12-02-2024 Creatinine [Mass/Vol] 0.64 mg/dL Low 0.70-1.20 [facility] Serum globulin measurementOr dered By: Rafat Casper on 12-02-2024 Globulin (S) [Mass/Vol] 2.3 g/dL 2.2-4.2 [facility] Serum glucose measurement (m ass/volume)Ordered By: Rafat Casper on 12-02-2024 Glucose [Mass/Vol] 107 mg/dL High 70-99 [facility] Serum or plasma alanine rice otransferase (ALT) measurementOrdered By: Rafat Casper on 12-02-2024 ALT [Catalytic activity/Vol] 6 U/L <35 [facility] Serum or plasma albumin cirilo urement (mass/volume)Ordered By: Rafat Casper on 12-02-2024 Albumin [Mass/Vol] 3.2 g/dL Low 3.4-4.8 [facility] Serum or plasma albumin/glob ulin mass ratioOrdered By: Rafat Casper on 12-02-2024 Albumin/Globulin [Mass ratio] 1.4 {ratio} 0.9-2.4 [facility] Serum or plasma alkaline anitha sphatase measurementOrdered By: Rafat Casper on 12-02-2024 ALP [Catalytic activity/Vol] 53 U/L 35-104 [facility] Serum or plasma calcium cirilo urement (mass/volume)Ordered By: Rafat Casper on 12-02-2024 Calcium [Mass/Vol] 9.2 mg/dL 7.6-11.0 [facility] Serum or plasma urea nitroge n measurement (mass/volume)Ordered By: Rafat Casper on 12-02-2024 Urea nitrogen [Mass/Vol] 18 mg/dL 4-19 [facility] Sodium levelOrdered By: Shalini Casper on 12-02-2024 Sodium [Moles/Vol] 139 mmol/L 133-145 [facility] Total proteinOrdered By: Ray Casper on 12-02-2024 Protein [Mass/Vol] 5.5 g/dL Low 5.9-8.4 [facility] White blood cell (WBC) count Ordered By: Rafat Casper on 12-02-2024 WBC (Bld) [#/Vol] 3.7 10*3/uL Low 4.4-11.0 [facility] Absolute neutrophil countOrd ered By: Alysha Miguel on 12-01-2024 Neutrophils (Bld) [#/Vol] 3.2 10*3/uL 2.0-7.7 [facility] Anion gap in Serum or Plasma Ordered By: Alysha Miguel on 12-01-2024 Anion gap [Moles/Vol] 12 mmol/L 5-15 [facility] BUN/creatinine ratioOrdered By: Alysha Miguel on 12-01-2024 Urea nitrogen/Creatinine [Mass ratio] 23.4 mg/mg High - [facility] Basic Metabolic Profile (BMP )on 12-01-2024 BUN/CRE 23.4 RATIO High 10- [facility] Comment on above: Performed By: #### L 500.2500, L100.0100, [id number] #### [facility] [address] [place], [address] Calcium [Mass/Vol] 9.2 mg/dL Normal 7.6-11.0 [facility] Comment on above: Performed By: #### L 500.2500, L100.0100, [id number] #### [facility] [address] [place], [address] Chloride [Moles/Vol] 104 mmol/L Normal 98-108 [facility] Comment on above: Performed By: #### L 500.2500, L100.0100, [id number] #### [facility] [address] [place], [address] CO2 [Moles/Vol] 23.0 mmol/L Normal 21.0-32.0 [facility] Comment on above: Performed By: #### L 500.2500, L100.0100, [id number] #### [facility] [address] [place], [address] Creatinine [Mass/Vol] 0.70 mg/dL Normal 0.70-1.20 [facility] Comment on above: Performed By: #### L 500.2500, L100.0100, [id number] #### [facility] [address] [place], [address] ECRCL 64.53 ml/min Normal 50-250 [facility] Comment on above: Performed By: #### L 500.2500, L100.0100, [id number] #### [facility] [address] [place], [address] GAP 12 Normal 5-15 [facility] Comment on above: Performed By: #### L 500.2500, L100.0100, [id number] #### [facility] [address] [place], [address] GFR/1.73 sq M.predicted among non-blacks MDRD (S/P/Bld) [Vol rate/Area] 87 mL/min/{1.73_m2} Normal >60 [facility] Comment on above: Result Comment: mL/m in/1.73m2 CKD-EPI Creatinine Equation (2020) Performed By: #### L 500.2500, L100.0100, [id number] #### [facility] [address] [place], [address] Glucose [Mass/Vol] 106 mg/dL High 70-99 [facility] Comment on above: Performed By: #### L 500.2500, L100.0100, [id number] #### [facility] [address] [place], [address] Potassium [Moles/Vol] 4.7 mmol/L Normal 3.3-5.1 [facility] Comment on above: Performed By: #### L 500.2500, L100.0100, [id number] #### [facility] [address] [place], [address] Sodium [Moles/Vol] 138 mmol/L Normal 133-145 [facility] Comment on above: Performed By: #### L 500.2500, L100.0100, [id number] #### [facility] [address] [place], [address] Urea nitrogen [Mass/Vol] 16 mg/dL Normal 4-19 [facility] Comment on above: Performed By: #### L 500.2500, L100.0100, [id number] #### [facility] [address] [place], [address] Basophil percentageOrdered B y: Alysha Miguel on 12-01-2024 Basophils/100 WBC (Bld) 0.0 % 0-1 [facility] CBC W/Diff, Automatedon 11-20 Absolute Lymph 0.71 X10 3/uL Low 0.83-4.51 [facility] Comment on above: Performed By: #### L 500.2500, L100.0100, [id number] #### [facility] [address] [place], [address] Absolute Neut 3.2 X10 3/uL Normal 2.0-7.7 [facility] Comment on above: Performed By: #### L 500.2500, L100.0100, [id number] #### [facility] [address] [place], [address] Basophils/100 WBC (Bld) 0.0 % Normal 0-1 [facility] Comment on above: Performed By: #### L 500.2500, L100.0100, [id number] #### [facility] [address] [place], [address] Eosinophils/100 WBC (Bld) 4.9 % Normal 0-5 [facility] Comment on above: Performed By: #### L 500.2500, L100.0100, [id number] #### [facility] [address] [place], [address] Erythrocyte distribution width (RBC) [Ratio] 12.8 % Normal 11.6-14.6 [facility] Comment on above: Performed By: #### L 500.2500, L100.0100, [id number] #### [facility] [address] [place], [address] Hematocrit (Bld) [Volume fraction] 34.0 % Low 37-47 [facility] Comment on above: Performed By: #### L 500.2500, L100.0100, [id number] #### [facility] [address] [place], [address] Hemoglobin (Bld) [Mass/Vol] 10.8 g/dL Low 12.0-15.0 [facility] Comment on above: Performed By: #### L 500.2500, L100.0100, [id number] #### [facility] [address] [place], [address] IG% 1.100 High 0.0-0.9 [facility] Comment on above: Result Comment: IG% - Immature Granulocytes (promyelocytes, myelocytes and metamyelocytes) > 1% indicates that a LEFT SHIFT is Present. Performed By: #### L 500.2500, L100.0100, [id number] #### [facility] [address] [place], [address] Lymphocytes/100 WBC (Bld) 15.1 % Low 19-41 [facility] Comment on above: Performed By: #### L 500.2500, L100.0100, [id number] #### [facility] [address] [place], [address] MCH (RBC) [Entitic mass] 30.3 pg Normal 27.0-32.0 [facility] Comment on above: Performed By: #### L 500.2500, L100.0100, [id number] #### [facility] [address] [place], [address] MCHC (RBC) [Mass/Vol] 31.8 g/dL Low 32-36 [facility] Comment on above: Performed By: #### L 500.2500, L100.0100, [id number] #### [facility] [address] [place], [address] MCV (RBC) [Entitic vol] 95.2 fL Normal 81-99 [facility] Comment on above: Performed By: #### L 500.2500, L100.0100, [id number] #### [facility] [address] [place], [address] Monocytes/100 WBC (Bld) 10.6 % High 0-10 [facility] Comment on above: Performed By: #### L 500.2500, L100.0100, [id number] #### [facility] [address] [place], [address] Neutrophils/100 WBC (Bld) 68.3 % Normal 47-70 [facility] Comment on above: Performed By: #### L 500.2500, L100.0100, [id number] #### [facility] [address] [place], [address] Nucleated RBC (Bld) [#/Vol] 0 10*3/uL Normal 0-5 [facility] Comment on above: Performed By: #### L 500.2500, L100.0100, [id number] #### [facility] [address] [place], [address] Platelet mean volume (Bld) [Entitic vol] 10.5 fL Normal 6.2-12.0 [facility] Comment on above: Performed By: #### L 500.2500, L100.0100, [id number] #### [facility] [address] [place], [address] Platelets (Bld) [#/Vol] 129 10*3/uL Low 150-450 [facility] Comment on above: Performed By: #### L 500.2500, L100.0100, [id number] #### [facility] [address] [place], [address] RBC (Bld) [#/Vol] 3.57 10*6/uL Low 4.2-5.4 [facility] Comment on above: Performed By: #### L 500.2500, L100.0100, [id number] #### [facility] [address] [place], [address] RDW SD 44.6 fl High 35.1-43.9 [facility] Comment on above: Performed By: #### L 500.2500, L100.0100, [id number] #### [facility] [address] [place], [address] WBC (Bld) [#/Vol] 4.7 10*3/uL Normal 4.4-11.0 [facility] Comment on above: Performed By: #### L 500.2500, L100.0100, [id number] #### [facility] [address] [place], [address] Carbon dioxide, total [Moles /volume] in Central venous bloodOrdered By: Alysha Miguel on 12-01-2024 CO2 [Moles/Vol] 23.0 mmol/L 21.0-32.0 [facility] Chloride assayOrdered By: Jose Miguel on 12-01-2024 Chloride [Moles/Vol] 104 mmol/L 98-108 [facility] Culture, Blood (WB)on 2024 CUB Blood cultures x2, from two different sites No growth in 5 days. Normal [facility] Comment on above: Performed By: #### L 500.2500, L100.0100, [id number] #### [facility] [address] [place], [address] Eosinophil percentageOrdered By: Alysha Miguel on 12-01-2024 Eosinophils/100 WBC (Bld) 4.9 % 0-5 [facility] Erythrocyte distribution wid th ratioOrdered By: Alysha Miguel on 12-01-2024 Erythrocyte distribution width (RBC) [Ratio] 12.8 % 11.6-14.6 [facility] Erythrocyte distribution wid th standard deviationOrdered By: Alysha Miguel on 12-01-2024 Erythrocyte distribution width (RBC) [Entitic vol] 44.6 fL High 35.1-43.9 [facility] Estimation of creatinine ping aranceOrdered By: Alysha Miguel on 12-01-2024 Estimated Creatinine Clearance Calc 64.53 ml/min 50-250 [facility] GFR/1.73 sq M.predicted germán g non-blacks MDRD (S/P/Bld) [Vol rate/Area]Ordered By: Alysha Miguel on 12-01-2024 Estimated GFR (MDRD) Non-Af Amer 87 >60 [facility] Comment on above: mL/min/1.73m2 CKD-EP I Creatinine Equation (2020) Hematocrit Auto (Bld) [Volum e fraction]Ordered By: Alysha Miguel on 12-01-2024 Hematocrit (Bld) [Volume fraction] 34.0 % Low 37-47 [facility] Hemoglobin measurementOrdere d By: Alysha Miguel on 12-01-2024 Hemoglobin (Bld) [Mass/Vol] 10.8 g/dL Low 12.0-15.0 [facility] Immature granulocytes/100 WB C Auto (Bld)Ordered By: Alysha Miguel on 12-01-2024 Immature granulocytes/100 WBC (Bld) 1.100 % High 0.0-0.9 [facility] Comment on above: IG% - Immature Granu locytes (promyelocytes, myelocytes and metamyelocytes) > 1% indicates that a LEFT SHIFT is Present. Lymphocytes Auto (Unsp spec) [#/Vol]Ordered By: Alysha Miguel on 12-01-2024 Lymphocytes (Bld) [#/Vol] 0.71 10*3/uL Low 0.83-4.51 [facility] Lymphocytes/100 WBC Auto (Un sp spec)Ordered By: Alysha Miguel on 12-01-2024 Lymphocytes/100 WBC (Bld) 15.1 % Low 19-41 [facility] MCV (mean corpuscular volume ) determinationOrdered By: Alysha Miguel on 12-01-2024 MCV (RBC) [Entitic vol] 95.2 fL 81-99 [facility] Mean corpuscular hemoglobin (MCH) determinationOrdered By: Alysha Miguel on 12-01-2024 MCH (RBC) [Entitic mass] 30.3 pg 27.0-32.0 [facility] Mean corpuscular hemoglobin concentration (MCHC) determinationOrdered By: Alysha Miguel on 12-01-2024 MCHC (RBC) [Mass/Vol] 31.8 g/dL Low 32-36 [facility] Mean platelet volume determi nationOrdered By: Alysha Miguel on 12-01-2024 Platelet mean volume (Bld) [Entitic vol] 10.5 fL 6.2-12.0 [facility] Monocyte percentageOrdered B y: Alysha Miguel on 12-01-2024 Monocytes/100 WBC (Bld) 10.6 % High 0-10 [facility] Neutrophil percentageOrdered By: Alysha Miguel on 12-01-2024 Neutrophils/100 WBC (Bld) 68.3 % 47-70 [facility] Nucleated red blood cell per centageOrdered By: Alysha Miguel on 12-01-2024 Nucleated RBC/100 WBC (Bld) [Ratio] 0 % 0-5 [facility] Platelet countOrdered By: Jose Miguel on 12-01-2024 Platelets (Bld) [#/Vol] 129 10*3/uL Low 150-450 [facility] Potassium (Unsp spec) [Mass/ Vol]Ordered By: Alysha Miguel on 12-01-2024 Potassium [Moles/Vol] 4.7 mmol/L 3.3-5.1 [facility] RBC Auto (Bld) [#/Vol]Ordere d By: Alysha Miguel on 12-01-2024 RBC (Bld) [#/Vol] 3.57 10*6/uL Low 4.2-5.4 [facility] Serum creatinine measurement (mass/volume)Ordered By: Alysha Miguel on 12-01-2024 Creatinine [Mass/Vol] 0.70 mg/dL 0.70-1.20 [facility] Serum glucose measurement (m ass/volume)Ordered By: Alysha Miguel on 12-01-2024 Glucose [Mass/Vol] 106 mg/dL High 70-99 [facility] Serum or plasma calcium cirilo urement (mass/volume)Ordered By: Alysha Miguel on 12-01-2024 Calcium [Mass/Vol] 9.2 mg/dL 7.6-11.0 [facility] Serum or plasma urea nitroge n measurement (mass/volume)Ordered By: Alysha Miguel on 12-01-2024 Urea nitrogen [Mass/Vol] 16 mg/dL 4-19 [facility] Sodium levelOrdered By: Kael Miguel on 12-01-2024 Sodium [Moles/Vol] 138 mmol/L 133-145 [facility] White blood cell (WBC) count Ordered By: Alysha Miguel on 12-01-2024 WBC (Bld) [#/Vol] 4.7 10*3/uL 4.4-11.0 [facility] Basic Metabolic Profile (BMP )on 11-30-2024 BUN/CRE 23.0 RATIO High 10-20 [facility] Comment on above: Performed By: #### L 500.2500, L100.0100 ####[facility] [address] [place], [place], [address] Calcium [Mass/Vol] 8.8 mg/dL Normal 7.6-11.0 [facility] Comment on above: Performed By: #### L 500.2500, L100.0100 ####[facility] [address] [place], [address] Chloride [Moles/Vol] 104 mmol/L Normal 98-108 [facility] Comment on above: Performed By: #### L 500.2500, L100.0100 ####[facility] [address] [place], [address] CO2 [Moles/Vol] 21.9 mmol/L Normal 21.0-32.0 [facility] Comment on above: Performed By: #### L 500.2500, L100.0100 ####[facility] [address] [place], [address] Creatinine [Mass/Vol] 0.77 mg/dL Normal 0.70-1.20 [facility] Comment on above: Performed By: #### L 500.2500, L100.0100 ####[facility] [address] [place], [address] ECRCL 64.53 ml/min Normal 50-250 [facility] Comment on above: Performed By: #### L 500.2500, L100.0100 ####[facility] [address] [place], [address] GAP 11 Normal 5-15 [facility] Comment on above: Performed By: #### L 500.2500, L100.0100 ####[facility] [address] [place], [address] GFR/1.73 sq M.predicted among non-blacks MDRD (S/P/Bld) [Vol rate/Area] 77 mL/min/{1.73_m2} Normal >60 [facility] Comment on above: Result Comment: mL/m in/1.73m2 CKD-EPI Creatinine Equation (2020) Performed By: #### L 500.2500, L100.0100 ####[facility] [address] [place], [address] Glucose [Mass/Vol] 114 mg/dL High 70-99 [facility] Comment on above: Performed By: #### L 500.2500, L100.0100 ####[facility] [address] [place], [address] Potassium [Moles/Vol] 4.2 mmol/L Normal 3.3-5.1 [facility] Comment on above: Performed By: #### L 500.2500, L100.0100 ####[facility] [address] [place], [address] Sodium [Moles/Vol] 136 mmol/L Normal 133-145 [facility] Comment on above: Performed By: #### L 500.2500, L100.0100 ####[facility] [address] [place], [address] Urea nitrogen [Mass/Vol] 18 mg/dL Normal 4-19 [facility] Comment on above: Performed By: #### L 500.2500, L100.0100 ####[facility] [address] [place], [address] CBC W/Diff, Automatedon 03- Absolute Lymph 0.88 X10 3/uL Normal 0.83-4.51 [facility] Comment on above: Performed By: #### L 500.2500, L100.0100 ####[facility] [address] [place], [address] Absolute Neut 3.2 X10 3/uL Normal 2.0-7.7 [facility] Comment on above: Performed By: #### L 500.2500, L100.0100 ####[facility] [address] [place], [address] Basophils/100 WBC (Bld) 0.2 % Normal 0-1 [facility] Comment on above: Performed By: #### L 500.2500, L100.0100 ####[facility] [address] [place], [address] Eosinophils/100 WBC (Bld) 3.5 % Normal 0-5 [facility] Comment on above: Performed By: #### L 500.2500, L100.0100 ####[facility] [address] [place], [address] Erythrocyte distribution width (RBC) [Ratio] 12.9 % Normal 11.6-14.6 [facility] Comment on above: Performed By: #### L 500.2500, L100.0100 ####[facility] [address] [place], [address] Hematocrit (Bld) [Volume fraction] 32.4 % Low 37-47 [facility] Comment on above: Performed By: #### L 500.2500, L100.0100 ####[facility] [address] [place], [address] Hemoglobin (Bld) [Mass/Vol] 10.4 g/dL Low 12.0-15.0 [facility] Comment on above: Performed By: #### L 500.2500, L100.0100 ####[facility] [address] [place], [address] IG% 0.800 Normal 0.0-0.9 [facility] Comment on above: Result Comment: IG% - Immature Granulocytes (promyelocytes, myelocytes and metamyelocytes) > 1% indicates that a LEFT SHIFT is Present. Performed By: #### L 500.2500, L100.0100 ####[facility] [address] [place], [address] Lymphocytes/100 WBC (Bld) 18.2 % Low 19-41 [facility] Comment on above: Performed By: #### L 500.2500, L100.0100 ####[facility] [address] [place], [address] MCH (RBC) [Entitic mass] 30.6 pg Normal 27.0-32.0 [facility] Comment on above: Performed By: #### L 500.2500, L100.0100 ####[facility] [address] [place], [address] MCHC (RBC) [Mass/Vol] 32.1 g/dL Normal 32-36 [facility] Comment on above: Performed By: #### L 500.2500, L100.0100 ####[facility] [address] [place], [address] MCV (RBC) [Entitic vol] 95.3 fL Normal 81-99 [facility] Comment on above: Performed By: #### L 500.2500, L100.0100 ####[facility] [address] [place], [address] Monocytes/100 WBC (Bld) 10.3 % High 0-10 [facility] Comment on above: Performed By: #### L 500.2500, L100.0100 ####[facility] [address] [place], [address] Neutrophils/100 WBC (Bld) 67.0 % Normal 47-70 [facility] Comment on above: Performed By: #### L 500.2500, L100.0100 ####[facility] [address] [place], [address] Nucleated RBC (Bld) [#/Vol] 0 10*3/uL Normal 0-5 [facility] Comment on above: Performed By: #### L 500.2500, L100.0100 ####[facility] [address] [place], [address] Platelet mean volume (Bld) [Entitic vol] 10.3 fL Normal 6.2-12.0 [facility] Comment on above: Performed By: #### L 500.2500, L100.0100 ####[facility] [address] [place], [address] Platelets (Bld) [#/Vol] 126 10*3/uL Low 150-450 [facility] Comment on above: Performed By: #### L 500.2500, L100.0100 ####[facility] [address] [place], [address] RBC (Bld) [#/Vol] 3.40 10*6/uL Low 4.2-5.4 [facility] Comment on above: Performed By: #### L 500.2500, L100.0100 ####[facility] [address] [place], [address] RDW SD 44.5 fl High 35.1-43.9 [facility] Comment on above: Performed By: #### L 500.2500, L100.0100 ####[facility] [address] [place], [address] WBC (Bld) [#/Vol] 4.8 10*3/uL Normal 4.4-11.0 [facility] Comment on above: Performed By: #### L 500.2500, L100.0100 ####[facility] [address] [place], [address] Urine Cultureon 11-30-2024 URC Mixed Gram Pos Gram Neg Org [place] Count 80,000-100,000 MIXC Mixed contaminants. Submit a new specimen if indicated. Normal [facility] Comment on above: Performed By: #### L 500.2500, L100.0100, L501.4020 #### [facility] [address] [place], [address] Basic Metabolic Profile (BMP )on 11-29-2024 BUN/CRE 25.7 RATIO High 10-20 [facility] Comment on above: Performed By: #### L 500.2500, L100.0100, L501.4020 #### [facility] [address] [place], [address] Calcium [Mass/Vol] 8.7 mg/dL Normal 7.6-11.0 [facility] Comment on above: Performed By: #### L 500.2500, L100.0100, L501.4020 #### [facility] [address] [place], [address] Chloride [Moles/Vol] 105 mmol/L Normal 98-108 [facility] Comment on above: Performed By: #### L 500.2500, L100.0100, L501.4020 #### [facility] [address] [place], [address] CO2 [Moles/Vol] 22.4 mmol/L Normal 21.0-32.0 [facility] Comment on above: Performed By: #### L 500.2500, L100.0100, L501.4020 #### [facility] [address] [place], [address] Creatinine [Mass/Vol] 0.84 mg/dL Normal 0.70-1.20 [facility] Comment on above: Performed By: #### L 500.2500, L100.0100, L501.4020 #### [facility] [address] [place], [address] ECRCL 61.46 ml/min Normal 50-250 [facility] Comment on above: Performed By: #### L 500.2500, L100.0100, L501.4020 #### [facility] [address] [place], [address] GAP 10 Normal 5-15 [facility] Comment on above: Performed By: #### L 500.2500, L100.0100, L501.4020 #### [facility] [address] [place], [address] GFR/1.73 sq M.predicted among non-blacks MDRD (S/P/Bld) [Vol rate/Area] 70 mL/min/{1.73_m2} Normal >60 [facility] Comment on above: Result Comment: mL/m in/1.73m2 CKD-EPI Creatinine Equation (2020) Performed By: #### L 500.2500, L100.0100, L501.4020 #### [facility] [address] [place], [address] Glucose [Mass/Vol] 117 mg/dL High 70-99 [facility] Comment on above: Performed By: #### L 500.2500, L100.0100, L501.4020 #### [facility] [address] [place], [address] Potassium [Moles/Vol] 4.2 mmol/L Normal 3.3-5.1 [facility] Comment on above: Performed By: #### L 500.2500, L100.0100, L501.4020 #### [facility] [address] [place], [address] Sodium [Moles/Vol] 137 mmol/L Normal 133-145 [facility] Comment on above: Performed By: #### L 500.2500, L100.0100, L501.4020 #### [facility] [address] [place], [address] Urea nitrogen [Mass/Vol] 22 mg/dL High 4-19 [facility] Comment on above: Performed By: #### L 500.2500, L100.0100, L501.4020 #### [facility] [address] [place], [address] Bilirubin Test strip Ql (U)O rdered By: Alysha Miguel on 11-29-2024 Bilirubin Ql (U) Negative Negative [facility] CBC W/Diff, Automatedon 11-20 Absolute Lymph 0.87 X10 3/uL Normal 0.83-4.51 [facility] Comment on above: Performed By: #### L 500.2500, L100.0100, L501.4020 #### [facility] [address] [place], [address] Absolute Neut 2.7 X10 3/uL Normal 2.0-7.7 [facility] Comment on above: Performed By: #### L 500.2500, L100.0100, L501.4020 #### [facility] [address] [place], [address] Basophils/100 WBC (Bld) 0.2 % Normal 0-1 [facility] Comment on above: Performed By: #### L 500.2500, L100.0100, L501.4020 #### [facility] [address] [place], [address] Eosinophils/100 WBC (Bld) 3.0 % Normal 0-5 [facility] Comment on above: Performed By: #### L 500.2500, L100.0100, L501.4020 #### [facility] [address] [place], [address] Erythrocyte distribution width (RBC) [Ratio] 13.0 % Normal 11.6-14.6 [facility] Comment on above: Performed By: #### L 500.2500, L100.0100, L501.4020 #### [facility] [address] [place], [address] Hematocrit (Bld) [Volume fraction] 31.7 % Low 37-47 [facility] Comment on above: Performed By: #### L 500.2500, L100.0100, L501.4020 #### [facility] [address] [place], [address] Hemoglobin (Bld) [Mass/Vol] 10.0 g/dL Low 12.0-15.0 [facility] Comment on above: Performed By: #### L 500.2500, L100.0100, L501.4020 #### [facility] [address] [place], [address] IG% 1.200 High 0.0-0.9 [facility] Comment on above: Result Comment: IG% - Immature Granulocytes (promyelocytes, myelocytes and metamyelocytes) > 1% indicates that a LEFT SHIFT is Present. Performed By: #### L 500.2500, L100.0100, L501.4020 #### [facility] [address] [place], [address] Lymphocytes/100 WBC (Bld) 20.1 % Normal 19-41 [facility] Comment on above: Performed By: #### L 500.2500, L100.0100, L501.4020 #### [facility] [address] [place], [address] MCH (RBC) [Entitic mass] 30.4 pg Normal 27.0-32.0 [facility] Comment on above: Performed By: #### L 500.2500, L100.0100, L501.4020 #### [facility] [address] [place], [address] MCHC (RBC) [Mass/Vol] 31.5 g/dL Low 32-36 [facility] Comment on above: Performed By: #### L 500.2500, L100.0100, L501.4020 #### [facility] [address] [place], [address] MCV (RBC) [Entitic vol] 96.4 fL Normal 81-99 [facility] Comment on above: Performed By: #### L 500.2500, L100.0100, L501.4020 #### [facility] [address] [place], [address] Monocytes/100 WBC (Bld) 12.7 % High 0-10 [facility] Comment on above: Performed By: #### L 500.2500, L100.0100, L501.4020 #### [facility] [address] [place], [address] Neutrophils/100 WBC (Bld) 62.8 % Normal 47-70 [facility] Comment on above: Performed By: #### L 500.2500, L100.0100, L501.4020 #### [facility] [address] [place], [address] Nucleated RBC (Bld) [#/Vol] 0 10*3/uL Normal 0-5 [facility] Comment on above: Performed By: #### L 500.2500, L100.0100, L501.4020 #### [facility] [address] [place], [address] Platelet mean volume (Bld) [Entitic vol] 10.3 fL Normal 6.2-12.0 [facility] Comment on above: Performed By: #### L 500.2500, L100.0100, L501.4020 #### [facility] [address] [place], [address] Platelets (Bld) [#/Vol] 117 10*3/uL Low 150-450 [facility] Comment on above: Performed By: #### L 500.2500, L100.0100, L501.4020 #### [facility] [address] [place], [address] RBC (Bld) [#/Vol] 3.29 10*6/uL Low 4.2-5.4 [facility] Comment on above: Performed By: #### L 500.2500, L100.0100, L501.4020 #### [facility] [address] [place], [address] RDW SD 46.3 fl High 35.1-43.9 [facility] Comment on above: Performed By: #### L 500.2500, L100.0100, L501.4020 #### [facility] [address] [place], [address] WBC (Bld) [#/Vol] 4.3 10*3/uL Low 4.4-11.0 [facility] Comment on above: Performed By: #### L 500.2500, L100.0100, L501.4020 #### [facility] [address] [place], [address] Chest 1 View (Portable)on Chest 1 View (Portable) [facility] Imaging Services [address] [facility] [place] [address] Chest 1 View (Portable) MR#: [id number] Acct: [id number] Name: LISA UP Rep #: [id number] : 1945 F 79 From: Wilner Li MD PCP: Dr. Sylvia Lizama MD Status: ADM IN Study: Chest 1 View (Portable) Date of Exam: 11/29/24 Exam# [id number] Ordering Dr: Alysha Miguel MD EXAM: XR Chest, 1 View CLINICAL INDICATION: TECHNIQUE: Frontal view of the chest. COMPARISON: No relevant prior studies available. FINDINGS: LUNGS AND PLEURAL SPACES: Unremarkable. No consolidation. No pneumothorax. HEART: Unremarkable. No cardiomegaly. MEDIASTINUM: Unremarkable. Normal mediastinal contour. BONES/JOINTS: Unremarkable. No acute fracture. RAD/Chest 1 View (Portable) IMPRESSION: No acute cardiopulmonary process. Reading Location[facility] CC: Dr. Alysha Miguel MD; Dr. Sylvia Lizama MD [employer] Supervisor: Signed Normal [facility] Epithelial cells.squamous LM Ql (Urine sed)Ordered By: Alysha Miguel on 11-29-2024 Epithelial cells.squamous LM.HPF (Urine sed) [#/Area] 10 /[HPF] 5-10 [facility] Glucose Ql (U)Ordered By: Jose Miguel on 11-29-2024 Urine Glucose (UA) Normal mg/dl Normal [facility] Ketones Test strip Ql (U)Ord ered By: Alysha Miguel on 11-29-2024 Ketones Ql (U) Negative Negative [facility] Microscopic analysis of urin e for red blood cells (RBC)Ordered By: Alysha Miguel on 11-29-2024 Urine RBC 0-5 SEEN /hpf 0-5 [facility] Mucus LM Ql (Urine sed)Order ed By: Alysha Miguel on 11-29-2024 Mucus Ql (Urine sed) 0 SEEN /hpf [facility] Nitrite Test strip Ql (U)Ord ered By: Alysha Miguel on 11-29-2024 Nitrite Ql (U) Positive High Negative [facility] Phosphoruson 11-29-2024 Phosphate [Mass/Vol] 3.8 mg/dL Normal 2.7-4.5 [facility] Comment on above: Performed By: #### L 500.2500, L100.0100, L501.4020 #### [facility] [address] [place], [place], [address] Protein Test strip Ql (U)Ord ered By: Alysha Miguel on 11-29-2024 Protein Ql (U) 15 mg/dl High Negative [facility] RESPIRATORY PANEL MOLECULARo n 11-29-2024 RP PANEL ADENOVIRUS Not Detected INFLUENZA A Not Detected INFLUENZA A (SUBTYPE H1) Not Detected INFLUENZA A (SUBTYPE H3) Not Detected INFLUENZA B Not Detected HUMAN METAPHNEUMO Not Detected PARAINFLUENZA 1 Not Detected PARAINFLUENZA 2 Not Detected PARAINFLUENZA 3 Not Detected PARAINFLUENZA 4 Not Detected RHINOVIRUS Not Detected RSV A Not Detected RSV B Not Detected Normal [facility] Comment on above: Performed By: #### M 100.638 ####[facility] [address] [facility] [place], [place], [address] Respiratory pathogens DNA an d RNA panel ANALI+probe (Resp)Ordered By: Alysha Miguel on 11-29-2024 Respiratory Panel (PCR) [facility] Serum phosphorus measurement Ordered By: Alysha Miguel on 11-29-2024 Phosphorus Level 3.8 mg/dL 2.7-4.5 [facility] Transitional cells LM Ql (Ur ine sed)Ordered By: Alysha Miguel on 11-29-2024 Urine Transitional Epithelial Cells 0 SEEN /hpf 0-5 [facility] Urinalysis, Completeon 11-29 EPI,TRANSITION 0 SEEN Normal 0-5 [facility] Comment on above: Order Comment: CLEAN CATCH Performed By: #### L 500.2500, L100.0100, L501.4020 #### [facility] [address] [place], [address] RBC 0-5 SEEN Normal 0-5 [facility] Comment on above: Order Comment: CLEAN CATCH Performed By: #### L 500.2500, L100.0100, L501.4020 #### [facility] [address] [place], [address] BACTERIA 3+ /hpf Normal None Seen [facility] Comment on above: Order Comment: CLEAN CATCH Performed By: #### L 500.2500, L100.0100, L501.4020 #### [facility] [address] [place], [address] WBC 5-10 SEEN Normal 0-5 [facility] Comment on above: Order Comment: CLEAN CATCH Performed By: #### L 500.2500, L100.0100, L501.4020 #### [facility] [address] [place], [address] EPI,SQUAMOUS 10-25 SEEN Normal 5-10 [facility] Comment on above: Order Comment: CLEAN CATCH Performed By: #### L 500.2500, L100.0100, L501.4020 #### [facility] [address] [place], [address] Mucus Ql (Urine sed) 0 SEEN Normal [facility] Comment on above: Order Comment: CLEAN CATCH Performed By: #### L 500.2500, L100.0100, L501.4020 #### [facility] [address] [place], [place], [address] Urine blood detectionOrdered By: Alysha Miguel on 11-29-2024 Urine Occult Blood Negative Negative [facility] Urine clarityOrdered By: Riki Miguel on 11-29-2024 Clarity (U) Clear Clear [facility] Urine color determinationOrd ered By: Alysha Miguel on 11-29-2024 Color (U) Yellow Yellow [facility] Urine cultureOrdered By: Riki Miguel on 11-29-2024 Bacteria identified Cx Nom (U) Mixed Gram Pos & Gram Neg Org Abnormal [facility] Urine leukocyte esterase det ection by dipstickOrdered By: Alysha Miguel on 11-29-2024 Leukocyte esterase Test strip Ql (U) 500 /ul High Negative [facility] Urine pHOrdered By: Alysha connolly on 11-29-2024 pH (U) 5.0 [pH] 5.0 - 8.0 [facility] Urine sediment bacteria coun t by microscopy (number/high power field)Ordered By: Alysha Miguel on 11-29-2024 Bacteria LM.HPF (Urine sed) [#/Area] 3 /[HPF] None Seen [facility] Urine specific gravity measu rementOrdered By: Alysha Miguel on 11-29-2024 Specific gravity (U) [Rel density] 1.020 1.002-1.030 [facility] Urobilinogen Ql (U)Ordered B y: Alysha Miguel on 11-29-2024 Urine Urobilinogen Normal mg/dl Normal [facility] White blood cell countOrdere d By: Alysha Miguel on 11-29-2024 Urine WBC 5-10 SEEN /hpf 0-5 [facility] Bilirubin, totalOrdered By: Alysha Miguel on 11-28-2024 Bilirubin [Mass/Vol] 0.28 mg/dL Normal 0.00-1.30 [facility] Comment on above: Performed By: #### L 500.2500, L100.0100, L501.4020 #### [facility] [address] [place], [address] CBC-Complete Blood Cnt No Di ffon 11-28-2024 Erythrocyte distribution width (RBC) [Ratio] 12.9 % Normal 11.6-14.6 [facility] Comment on above: Performed By: #### L 500.2500, L100.0100, L501.4020 #### [facility] [address] [place], [address] Hematocrit (Bld) [Volume fraction] 35.1 % Low 37-47 [facility] Comment on above: Performed By: #### L 500.2500, L100.0100, L501.4020 #### [facility] [address] [place], [address] Hemoglobin (Bld) [Mass/Vol] 11.1 g/dL Low 12.0-15.0 [facility] Comment on above: Performed By: #### L 500.2500, L100.0100, L501.4020 #### [facility] [address] [place], [address] MCH (RBC) [Entitic mass] 30.7 pg Normal 27.0-32.0 [facility] Comment on above: Performed By: #### L 500.2500, L100.0100, L501.4020 #### [facility] [address] [place], [address] MCHC (RBC) [Mass/Vol] 31.6 g/dL Low 32-36 [facility] Comment on above: Performed By: #### L 500.2500, L100.0100, L501.4020 #### [facility] [address] [place], [address] MCV (RBC) [Entitic vol] 97.0 fL Normal 81-99 [facility] Comment on above: Performed By: #### L 500.2500, L100.0100, L501.4020 #### [facility] [address] [place], [address] Platelet mean volume (Bld) [Entitic vol] 10.4 fL Normal 6.2-12.0 [facility] Comment on above: Performed By: #### L 500.2500, L100.0100, L501.4020 #### [facility] [address] [place], [address] Platelets (Bld) [#/Vol] 130 10*3/uL Low 150-450 [facility] Comment on above: Performed By: #### L 500.2500, L100.0100, L501.4020 #### [facility] [address] [place], [address] RBC (Bld) [#/Vol] 3.62 10*6/uL Low 4.2-5.4 [facility] Comment on above: Performed By: #### L 500.2500, L100.0100, L501.4020 #### [facility] [address] [place], [address] RDW SD 45.7 fl High 35.1-43.9 [facility] Comment on above: Performed By: #### L 500.2500, L100.0100, L501.4020 #### [facility] [address] [place], [address] WBC (Bld) [#/Vol] 4.5 10*3/uL Normal 4.4-11.0 [facility] Comment on above: Performed By: #### L 500.2500, L100.0100, L501.4020 #### [facility] [address] [place], [address] Comprehensive Metabolic Prof ilon 11-28-2024 ALK PHOS 56 U/L Normal 35-104 [facility] Comment on above: Performed By: #### L 500.2500, L100.0100, L501.4020 #### [facility] [address] [place], [address] BUN/CRE 19.4 RATIO Normal 10-20 [facility] Comment on above: Performed By: #### L 500.2500, L100.0100, L501.4020 #### [facility] [address] [place], [address] Calcium [Mass/Vol] 8.9 mg/dL Normal 7.6-11.0 [facility] Comment on above: Performed By: #### L 500.2500, L100.0100, L501.4020 #### [facility] [address] [place], [address] Chloride [Moles/Vol] 103 mmol/L Normal 98-108 [facility] Comment on above: Performed By: #### L 500.2500, L100.0100, L501.4020 #### [facility] [address] [place], [address] CO2 [Moles/Vol] 24.1 mmol/L Normal 21.0-32.0 [facility] Comment on above: Performed By: #### L 500.2500, L100.0100, L501.4020 #### [facility] [address] [place], [address] Creatinine [Mass/Vol] 0.99 mg/dL Normal 0.70-1.20 [facility] Comment on above: Performed By: #### L 500.2500, L100.0100, L501.4020 #### [facility] [address] [place], [address] ECRCL 52.15 ml/min Normal 50-250 [facility] Comment on above: Performed By: #### L 500.2500, L100.0100, L501.4020 #### [facility] [address] [place], [address] GAP 11 Normal 5-15 [facility] Comment on above: Performed By: #### L 500.2500, L100.0100, L501.4020 #### [facility] [address] [place], [address] GFR/1.73 sq M.predicted among non-blacks MDRD (S/P/Bld) [Vol rate/Area] 58 mL/min/{1.73_m2} Low >60 [facility] Comment on above: Result Comment: mL/m in/1.73m2 CKD-EPI Creatinine Equation (2020) Performed By: #### L 500.2500, L100.0100, L501.4020 #### [facility] [address] [place], [address] Glucose [Mass/Vol] 113 mg/dL High 70-99 [facility] Comment on above: Performed By: #### L 500.2500, L100.0100, L501.4020 #### [facility] [address] [place], [address] Potassium [Moles/Vol] 4.2 mmol/L Normal 3.3-5.1 [facility] Comment on above: Result Comment: Hemo lysis present, Results??could be affected. ?? Performed By: #### L 500.2500, L100.0100, L501.4020 #### [facility] [address] [place], [address] Sodium [Moles/Vol] 138 mmol/L Normal 133-145 [facility] Comment on above: Performed By: #### L 500.2500, L100.0100, L501.4020 #### [facility] [address] [place], [address] T PROT 5.7 g/dL Low 5.9-8.4 [facility] Comment on above: Performed By: #### L 500.2500, L100.0100, L501.4020 #### [facility] [address] [place], [address] Urea nitrogen [Mass/Vol] 19 mg/dL Normal 4-19 [facility] Comment on above: Performed By: #### L 500.2500, L100.0100, L501.4020 #### [facility] [address] [place], [address] Comprehensive Metabolic Prof ilOrdered By: Alysha Miguel on 11-28-2024 AST [Catalytic activity/Vol] 28 U/L Normal <=31 [facility] Comment on above: Performed By: #### L 500.2500, L100.0100, L501.4020 #### [facility] [address] [place], [address] Magnesium measurement (mass/ volume)Ordered By: Alysha Miguel on 11-28-2024 Magnesium [Mass/Vol] 2.0 mg/dL Normal 1.5-2.2 [facility] Comment on above: Performed By: #### L 500.2500, L100.0100, L501.4020 #### [facility] [address] [place], [address] Serum globulin measurementOr dered By: Alysha Miguel on 11-28-2024 Globulin (S) [Mass/Vol] 2.5 g/dL Normal 2.2-4.2 [facility] Comment on above: Performed By: #### L 500.2500, L100.0100, L501.4020 #### [facility] [address] [place], [address] Serum or plasma alanine rice otransferase (ALT) measurementOrdered By: Alysha Miguel on 11-28-2024 ALT [Catalytic activity/Vol] 5 U/L Normal <=34 [facility] Comment on above: Performed By: #### L 500.2500, L100.0100, L501.4020 #### [facility] [address] [place], [address] Serum or plasma albumin cirilo urement (mass/volume)Ordered By: Alysha Miguel on 11-28-2024 Albumin [Mass/Vol] 3.3 g/dL Low 3.4-4.8 [facility] Comment on above: Performed By: #### L 500.2500, L100.0100, L501.4020 #### [facility] [address] [place], [address] Serum or plasma albumin/glob ulin mass ratioOrdered By: Alysha Miguel on 11-28-2024 Albumin/Globulin [Mass ratio] 1.3 {ratio} Normal 0.9-2.4 [facility] Comment on above: Performed By: #### L 500.2500, L100.0100, L501.4020 #### [facility] [address] [place], [address] Serum or plasma alkaline anitha sphatase measurementOrdered By: Alysha Miguel on 11-28-2024 ALP [Catalytic activity/Vol] 56 U/L 35-104 [facility] Total proteinOrdered By: Riki Miguel on 11-28-2024 Protein [Mass/Vol] 5.7 g/dL Low 5.9-8.4 [facility] Basic Metabolic Profile (BMP )on 11-27-2024 BUN/CRE 16.7 RATIO Normal 10-20 [facility] Comment on above: Performed By: #### L 500.2500, L100.0100, L501.4020 #### [facility] [address] [place], [address] Calcium [Mass/Vol] 8.6 mg/dL Normal 7.6-11.0 [facility] Comment on above: Performed By: #### L 500.2500, L100.0100, L501.4020 #### [facility] [address] [place], [address] Chloride [Moles/Vol] 104 mmol/L Normal 98-108 [facility] Comment on above: Performed By: #### L 500.2500, L100.0100, L501.4020 #### [facility] [address] [place], [address] CO2 [Moles/Vol] 24.1 mmol/L Normal 21.0-32.0 [facility] Comment on above: Performed By: #### L 500.2500, L100.0100, L501.4020 #### [facility] [address] [place], [address] Creatinine [Mass/Vol] 0.80 mg/dL Normal 0.70-1.20 [facility] Comment on above: Performed By: #### L 500.2500, L100.0100, L501.4020 #### [facility] [address] [place], [address] ECRCL 64.53 ml/min Normal 50-250 [facility] Comment on above: Performed By: #### L 500.2500, L100.0100, L501.4020 #### [facility] [address] [place], [address] GAP 11 Normal 5-15 [facility] Comment on above: Performed By: #### L 500.2500, L100.0100, L501.4020 #### [facility] [address] [place], [address] GFR/1.73 sq M.predicted among non-blacks MDRD (S/P/Bld) [Vol rate/Area] 75 mL/min/{1.73_m2} Normal >60 [facility] Comment on above: Result Comment: mL/m in/1.73m2 CKD-EPI Creatinine Equation (2020) Performed By: #### L 500.2500, L100.0100, L501.4020 #### [facility] [address] [place], [address] Glucose [Mass/Vol] 101 mg/dL High 70-99 [facility] Comment on above: Performed By: #### L 500.2500, L100.0100, L501.4020 #### [facility] [address] [place], [address] Potassium [Moles/Vol] 4.0 mmol/L Normal 3.3-5.1 [facility] Comment on above: Performed By: #### L 500.2500, L100.0100, L501.4020 #### [facility] [address] [place], [address] Sodium [Moles/Vol] 139 mmol/L Normal 133-145 [facility] Comment on above: Performed By: #### L 500.2500, L100.0100, L501.4020 #### [facility] [address] [place], [address] Urea nitrogen [Mass/Vol] 13 mg/dL Normal 4-19 [facility] Comment on above: Performed By: #### L 500.2500, L100.0100, L501.4020 #### [facility] [address] [place], [address] CBC-Complete Blood Cnt No Di ffon 11-27-2024 Erythrocyte distribution width (RBC) [Ratio] 12.9 % Normal 11.6-14.6 [facility] Comment on above: Performed By: #### L 500.2500, L100.0100, L501.4020 #### [facility] [address] [place], [address] Hematocrit (Bld) [Volume fraction] 33.8 % Low 37-47 [facility] Comment on above: Performed By: #### L 500.2500, L100.0100, L501.4020 #### [facility] [address] [place], [address] Hemoglobin (Bld) [Mass/Vol] 11.0 g/dL Low 12.0-15.0 [facility] Comment on above: Performed By: #### L 500.2500, L100.0100, L501.4020 #### [facility] [address] [place], [address] MCH (RBC) [Entitic mass] 30.8 pg Normal 27.0-32.0 [facility] Comment on above: Performed By: #### L 500.2500, L100.0100, L501.4020 #### [facility] [address] [place], [address] MCHC (RBC) [Mass/Vol] 32.5 g/dL Normal 32-36 [facility] Comment on above: Performed By: #### L 500.2500, L100.0100, L501.4020 #### [facility] [address] [place], [address] MCV (RBC) [Entitic vol] 94.7 fL Normal 81-99 [facility] Comment on above: Performed By: #### L 500.2500, L100.0100, L501.4020 #### [facility] [address] [place], [address] Platelet mean volume (Bld) [Entitic vol] 9.9 fL Normal 6.2-12.0 [facility] Comment on above: Performed By: #### L 500.2500, L100.0100, L501.4020 #### [facility] [address] [place], [address] Platelets (Bld) [#/Vol] 123 10*3/uL Low 150-450 [facility] Comment on above: Performed By: #### L 500.2500, L100.0100, L501.4020 #### [facility] [address] [place], [address] RBC (Bld) [#/Vol] 3.57 10*6/uL Low 4.2-5.4 [facility] Comment on above: Performed By: #### L 500.2500, L100.0100, L501.4020 #### [facility] [address] [place], [address] RDW SD 44.3 fl High 35.1-43.9 [facility] Comment on above: Performed By: #### L 500.2500, L100.0100, L501.4020 #### [facility] [address] [place], [address] WBC (Bld) [#/Vol] 4.1 10*3/uL Low 4.4-11.0 [facility] Comment on above: Performed By: #### L 500.2500, L100.0100, L501.4020 #### [facility] [address] [place], [address] Absolute neutrophil countOrd ered By: Tanisha Bahena on 11-26-2024 Neutrophils (Bld) [#/Vol] 3.6 10*3/uL 2.0-7.7 [facility] Anion gap in Serum or Plasma Ordered By: Tanisha Bahena on 11-26-2024 Anion gap [Moles/Vol] 11 mmol/L 5-15 [facility] BUN/creatinine ratioOrdered By: Tanisha Bahena on 11-26-2024 Urea nitrogen/Creatinine [Mass ratio] 15.1 mg/mg 10-20 [facility] Basophil percentageOrdered B y: Tanisha Bahena on 11-26-2024 Basophils/100 WBC (Bld) 0.2 % 0-1 [facility] Bilirubin Test strip Ql (U)O rdered By: Tanisha Bahena on 11-26-2024 Bilirubin Ql (U) Negative Negative [facility] Bilirubin, totalOrdered By: Tanisha Bahena on 11-26-2024 Bilirubin [Mass/Vol] 0.49 mg/dL 0.00-1.30 [facility] Blood cultureOrdered By: Danica Bahena on 11-26-2024 Bacteria identified Cx Nom (Bld) No growth in 5 days. [facility] Brain without Contraston Brain without Contrast [facility] Imaging Services [address] [place] [address] Brain without Contrast MR#: [id number] Acct: [id number] Name: LISA UP Rep #: [id number] : 1945 79 From: Yoni Reynolds PCP: Dr. Sylvia Lizama MD Status: ADM DEBORAH Study: Brain without Contrast Date of Exam: 11/26/24 Exam# [id number] Ordering Dr: Jaxson Meehan DO PROCEDURE: CT [...] scattered paranasal sinus disease. Reading Location: KATHLEENRG CC: Dr. Jaxson Meehan DO; Dr. Sylvia Lizama MD [employer] Supervisor: Signed Normal [facility] Brain/Head without Contrasto n 11-26-2024 Brain/Head without Contrast [facility] Imaging Services [address] [place], [place] [address] Brain/Head without Contrast MR#: [id number] Acct: [id number] Name: LISA UP Rep #: [id number] : 1945 79 From: Osman aden MD PCP: Dr. Sylvia Lizama MD Status: REG ER Study: Brain/Head without Contrast Date of Exam: 04/15 Exam# [id number] Ordering Dr: Tanisha Bahena DO EXAM: BRAIN/HEAD [...] as the left sphenoid sinus. Reading Location: [id number] CC: Dr. Tanisha Bahena DO; Dr. Sylvia Lizama MD [employer] Supervisor: Signed Normal [facility] CBC W/Diff, Automatedon Absolute Lymph 0.76 X10 3/uL Low 0.83-4.51 [facility] Comment on above: Performed By: #### L 500.4050, L501.3620, L503.6005, L100.0100 ####[facility] [address] [place], [address] Absolute Neut 3.6 X10 3/uL Normal 2.0-7.7 [facility] Comment on above: Performed By: #### L 500.4050, L501.3620, L503.6005, L100.0100 ####[facility] [address] [place], [address] Basophils/100 WBC (Bld) 0.2 % Normal 0-1 [facility] Comment on above: Performed By: #### L 500.4050, L501.3620, L503.6005, L100.0100 ####[facility] [address] [place], [address] Eosinophils/100 WBC (Bld) 1.2 % Normal 0-5 [facility] Comment on above: Performed By: #### L 500.4050, L501.3620, L503.6005, L100.0100 ####[facility] [address] [place], [address] Erythrocyte distribution width (RBC) [Ratio] 12.8 % Normal 11.6-14.6 [facility] Comment on above: Performed By: #### L 500.4050, L501.3620, L503.6005, L100.0100 ####[facility] [address] [place], [address] Hematocrit (Bld) [Volume fraction] 36.2 % Low 37-47 [facility] Comment on above: Performed By: #### L 500.4050, L501.3620, L503.6005, L100.0100 ####[facility] [address] [place], [address] Hemoglobin (Bld) [Mass/Vol] 11.7 g/dL Low 12.0-15.0 [facility] Comment on above: Performed By: #### L 500.4050, L501.3620, L503.6005, L100.0100 ####[facility] [address] [place], [address] IG% 0.400 Normal 0.0-0.9 [facility] Comment on above: Result Comment: IG% - Immature Granulocytes (promyelocytes, myelocytes and metamyelocytes) > 1% indicates that a LEFT SHIFT is Present. Performed By: #### L 500.4050, L501.3620, L503.6005, L100.0100 ####[facility] [address] [place], [address] Lymphocytes/100 WBC (Bld) 15.0 % Low 19-41 [facility] Comment on above: Performed By: #### L 500.4050, L501.3620, L503.6005, L100.0100 ####[facility] [address] [place], [address] MCH (RBC) [Entitic mass] 30.5 pg Normal 27.0-32.0 [facility] Comment on above: Performed By: #### L 500.4050, L501.3620, L503.6005, L100.0100 ####[facility] [address] [place], [address] MCHC (RBC) [Mass/Vol] 32.3 g/dL Normal 32-36 [facility] Comment on above: Performed By: #### L 500.4050, L501.3620, L503.6005, L100.0100 ####[facility] [address] [place], [address] MCV (RBC) [Entitic vol] 94.5 fL Normal 81-99 [facility] Comment on above: Performed By: #### L 500.4050, L501.3620, L503.6005, L100.0100 ####[facility] [address] [place], [address] Monocytes/100 WBC (Bld) 12.2 % High 0-10 [facility] Comment on above: Performed By: #### L 500.4050, L501.3620, L503.6005, L100.0100 ####[facility] [address] [place], [address] Neutrophils/100 WBC (Bld) 71.0 % High 47-70 [facility] Comment on above: Performed By: #### L 500.4050, L501.3620, L503.6005, L100.0100 ####[facility] [address] [place], [address] Nucleated RBC (Bld) [#/Vol] 0 10*3/uL Normal 0-5 [facility] Comment on above: Performed By: #### L 500.4050, L501.3620, L503.6005, L100.0100 ####[facility] [address] [place], [address] Platelet mean volume (Bld) [Entitic vol] 10.2 fL Normal 6.2-12.0 [facility] Comment on above: Performed By: #### L 500.4050, L501.3620, L503.6005, L100.0100 ####[facility] [address] [place], [address] Platelets (Bld) [#/Vol] 142 10*3/uL Low 150-450 [facility] Comment on above: Performed By: #### L 500.4050, L501.3620, L503.6005, L100.0100 ####[facility] [address] [place], [address] RBC (Bld) [#/Vol] 3.83 10*6/uL Low 4.2-5.4 [facility] Comment on above: Performed By: #### L 500.4050, L501.3620, L503.6005, L100.0100 ####[facility] [address] [place], [address] RDW SD 43.9 fl Normal 35.1-43.9 [facility] Comment on above: Performed By: #### L 500.4050, L501.3620, L503.6005, L100.0100 ####[facility] [address] [place], [address] WBC (Bld) [#/Vol] 5.1 10*3/uL Normal 4.4-11.0 [facility] Comment on above: Performed By: #### L 500.4050, L501.3620, L503.6005, L100.0100 ####[facility] [address] [place], [address] CPK Total, Creatine Kinaseon 11-26-2024 CPK TOTAL 183 U/L Normal 24-195 [facility] Comment on above: Performed By: #### L 500.4050, L501.3620, L503.6005, L100.0100 ####[facility] [address] [place], [address] Carbon dioxide, total [Moles /volume] in Central venous bloodOrdered By: Tanisha Bahena on 11-26-2024 CO2 [Moles/Vol] 25.6 mmol/L 21.0-32.0 [facility] Chest PA and Lateralon 11-26 Chest PA and Lateral [facility] Imaging Services [address] [place] [address] Chest PA and Lateral MR#: [id number] Acct: [id number] Name: LISA UP Rep #: [id number] : 1945 F 79 From: Osman aden MD PCP: Dr. Sylvia Lizama MD Status: REG ER Study: Chest PA and Lateral Date of Exam: 11/26/24 Exam# [id number] Ordering Dr: Tanisha Bahena DO PROCEDURE: CHEST PA AND LATERAL REASON FOR EXAM: Weakness, cough and chills. TECHNIQUE: Frontal and lateral views of the chest. COMPARISON: Comparison is made with prior study dated November 06, 2024. FINDINGS: EKG electrodes are seen. The heart is not enlarged. The lungs are clear. RAD/Chest PA and Lateral IMPRESSION: No acute abnormality is seen. Reading Location: [id number] CC: Dr. Tanisha Bahena DO; Dr. Sylvia Lizama MD [employer] Supervisor: Signed Normal [facility] Chloride assayOrdered By: Fredi Bahena on 11-26-2024 Chloride [Moles/Vol] 101 mmol/L 98-108 [facility] Comprehensive Metabolic Prof ilon 11-26-2024 Albumin [Mass/Vol] 3.7 g/dL Normal 3.4-4.8 [facility] Comment on above: Performed By: #### L 500.4050, L501.3620, L503.6005, L100.0100 ####[facility] [address] [place], [address] Albumin/Globulin [Mass ratio] 1.5 {ratio} Normal 0.9-2.4 [facility] Comment on above: Performed By: #### L 500.4050, L501.3620, L503.6005, L100.0100 ####[facility] [address] [place], [address] ALK PHOS 66 U/L Normal 35-104 [facility] Comment on above: Performed By: #### L 500.4050, L501.3620, L503.6005, L100.0100 ####[facility] [address] [place], [address] ALT [Catalytic activity/Vol] U/L Normal <=34 [facility] Comment on above: Performed By: #### L 500.4050, L501.3620, L503.6005, L100.0100 ####[facility] [address] [place], [address] AST [Catalytic activity/Vol] 27 U/L Normal <=31 [facility] Comment on above: Performed By: #### L 500.4050, L501.3620, L503.6005, L100.0100 ####[facility] [address] [place], [address] Bilirubin [Mass/Vol] 0.49 mg/dL Normal 0.00-1.30 [facility] Comment on above: Performed By: #### L 500.4050, L501.3620, L503.6005, L100.0100 ####[facility] [address] [place], [address] BUN/CRE 15.1 RATIO Normal 10-20 [facility] Comment on above: Performed By: #### L 500.4050, L501.3620, L503.6005, L100.0100 ####[facility] [address] [place], [address] Calcium [Mass/Vol] 9.4 mg/dL Normal 7.6-11.0 [facility] Comment on above: Performed By: #### L 500.4050, L501.3620, L503.6005, L100.0100 ####[facility] [address] [place], [address] Chloride [Moles/Vol] 101 mmol/L Normal 98-108 [facility] Comment on above: Performed By: #### L 500.4050, L501.3620, L503.6005, L100.0100 ####[facility] [address] [place], [address] CO2 [Moles/Vol] 25.6 mmol/L Normal 21.0-32.0 [facility] Comment on above: Performed By: #### L 500.4050, L501.3620, L503.6005, L100.0100 ####[facility] [address] [place], [address] Creatinine [Mass/Vol] 0.72 mg/dL Normal 0.70-1.20 [facility] Comment on above: Performed By: #### L 500.4050, L501.3620, L503.6005, L100.0100 ####[facility] [address] [place], [address] ECRCL 64.55 ml/min Normal 50-250 [facility] Comment on above: Performed By: #### L 500.4050, L501.3620, L503.6005, L100.0100 ####[facility] [address] [place], [address] GAP 11 Normal 5-15 [facility] Comment on above: Performed By: #### L 500.4050, L501.3620, L503.6005, L100.0100 ####[facility] [address] [place], [address] GFR/1.73 sq M.predicted among non-blacks MDRD (S/P/Bld) [Vol rate/Area] 83 mL/min/{1.73_m2} Normal >60 [facility] Comment on above: Result Comment: mL/m in/1.73m2 CKD-EPI Creatinine Equation (2020) Performed By: #### L 500.4050, L501.3620, L503.6005, L100.0100 ####[facility] [address] [place], [address] Globulin (S) [Mass/Vol] 2.4 g/dL Normal 2.2-4.2 [facility] Comment on above: Performed By: #### L 500.4050, L501.3620, L503.6005, L100.0100 ####[facility] [address] [place], [address] Glucose [Mass/Vol] 108 mg/dL High 70-99 [facility] Comment on above: Performed By: #### L 500.4050, L501.3620, L503.6005, L100.0100 ####[facility] [address] [place], [address] Potassium [Moles/Vol] 4.1 mmol/L Normal 3.3-5.1 [facility] Comment on above: Performed By: #### L 500.4050, L501.3620, L503.6005, L100.0100 ####[facility] [address] [place], [address] Sodium [Moles/Vol] 138 mmol/L Normal 133-145 [facility] Comment on above: Performed By: #### L 500.4050, L501.3620, L503.6005, L100.0100 ####[facility] [address] [place], [address] T PROT 6.1 g/dL Normal 5.9-8.4 [facility] Comment on above: Performed By: #### L 500.4050, L501.3620, L503.6005, L100.0100 ####[facility] [address] [place], [address] Urea nitrogen [Mass/Vol] 11 mg/dL Normal 4-19 [facility] Comment on above: Performed By: #### L 500.4050, L501.3620, L503.6005, L100.0100 ####[facility] [address] [place], [address] Emergency Department Summary on 11-26-2024 Emergency Department Summary [facility] Medical Records Department [address] [place] [address] Emergency Department Summary 11/26/24 MR#: [id number] Acct: [id number] Name: LISA UP Rep #: [id number] : 1945 79 From: Tanisha Bahena DO PCP: Dr. Sylvia Lizama MD Status:ADM DEBORAH Location: [address] History of Present Illness Chief Complaint: [...] time. Patient is on any blood thinners. [facility] Medical History DVT (deep venous thrombosis) Post-menopausal [...] vaccine, mRNA, Allergy Anaphylaxis Verified 11/26/24 11:17 [id number], erythromycin base Allergy Rash Verified 11/26/24 11:17 [...] Neurologic: Rep (more content not included)... Normal [facility] Eosinophil percentageOrdered By: Tanisha Bahena on 11-26-2024 Eosinophils/100 WBC (Bld) 1.2 % 0-5 [facility] Epithelial cells.squamous LM Ql (Urine sed)Ordered By: Tanisha Bahena on 11-26-2024 Epithelial cells.squamous LM.HPF (Urine sed) [#/Area] 0 /[HPF] 5-10 [facility] Erythrocyte distribution wid th ratioOrdered By: Tanisha Bahena on 11-26-2024 Erythrocyte distribution width (RBC) [Ratio] 12.8 % 11.6-14.6 [facility] Erythrocyte distribution wid th standard deviationOrdered By: Tanisha Bahena on 11-26-2024 Erythrocyte distribution width (RBC) [Entitic vol] 43.9 fL 35.1-43.9 [facility] Estimation of creatinine ping aranceOrdered By: Tanisha Bahena on 11-26-2024 Estimated Creatinine Clearance Calc 64.55 ml/min 50-250 [facility] GFR/1.73 sq M.predicted germán g non-blacks MDRD (S/P/Bld) [Vol rate/Area]Ordered By: Tanisha Bahena on 11-26-2024 Estimated GFR (MDRD) Non-Af Amer 83 >60 [facility] Comment on above: mL/min/1.73m2 CKD-EP I Creatinine Equation (2020) Glucose Ql (U)Ordered By: Fredi Bahena on 11-26-2024 Urine Glucose (UA) Normal mg/dl Normal [facility] H AND P Exam - Hospitaliston 11-26-2024 H&P Exam - Hospitalist [facility] Medical Records Department [address] [place] [address] H P Exam - Hospitalist 11/26/24 1607 MR#: [id number] Acct: [id number] Name: LISA UP Rep #: [id number] : 1945 79 From: Jaxson Meehan DO PCP: Dr. Sylvia Lizama MD Status:ADM DEBORAH Location: [place] [address] HPI - General General Date of Admission: 11/26/24 Date of Service: 11/26/24 Chief Complaint: weakness with fall at home HPI Narrative LISA UP, is a 79 F who presented to [facility] ED on 11/26/2024 with weakness and a fall at home. Patient lives at home alone, does have family that lives close by. Patient has history of non-Hodgkin's lymphoma, follows with Dr. Suggs. She initially completed 2 rounds of Rituxan [...] any other acute concerns at this time. [facility] Medical History DVT (deep venous thrombosis) [...] vaccine, mRNA, Allergy Anaphylaxis Verified 11/26/24 11:17 [id number], erythromycin base Allergy Rash Verified 11/26/24 11:17 (Erythromycin Base) lisinopril Allergy Swelling Verified 11/26/24 11:17 venom-wasp (wasp) Allergy NEEDS Verified 11/26/24 11:17 FOLLOW-UP amlodipine AdvReac Swelling Verified 11/26/24 11:17 latex AdvReac Swelling Verified 11/26/24 11:17 Family History Mother Hypertension Surgical Histo (more content not included)... Normal [facility] Hematocrit Auto (Bld) [Volum e fraction]Ordered By: Tanisha Bahena on 11-26-2024 Hematocrit (Bld) [Volume fraction] 36.2 % Low 37-47 [facility] Hemoglobin measurementOrdere d By: Tanisha Bahena on 11-26-2024 Hemoglobin (Bld) [Mass/Vol] 11.7 g/dL Low 12.0-15.0 [facility] Immature granulocytes/100 WB C Auto (Bld)Ordered By: Tanisha Bahena on 11-26-2024 Immature granulocytes/100 WBC (Bld) 0.400 % 0.0-0.9 [facility] Comment on above: IG% - Immature Granu locytes (promyelocytes, myelocytes and metamyelocytes) > 1% indicates that a LEFT SHIFT is Present. Influenza virus A and B and SARS-CoV-2 (COVID-19) and Respiratory syncytial virus RNAOrdered By: Tanisha Bahena on 11-26-2024 SARS-CoV-2 (COVID-19) RNA ANALI+probe Ql (Unsp spec) SARS-CoV-2 (COVID 19 PCR) Abnormal [facility] SARS-CoV-2 (COVID-19) RNA ANALI+probe Ql (Unsp spec) SARS-CoV-2 (COVID 19 PCR) Abnormal [facility] Ketones Test strip Ql (U)Ord ered By: Tanisha Bahena on 11-26-2024 Ketones Ql (U) Negative Negative [facility] Knee 4 or More Viewson 11-26 Knee 4 or More Views [facility] Imaging Services [address] [place] [address] Knee 4 or More Views MR#: [id number] Acct: [id number] Name: ANNELLISA Agatha Rep #: [id number] : 1945 F 79 From: Osman aden MD PCP: Dr. Sylvia Lizama MD Status: REG ER Study: Knee 4 or More Views Date of Exam: 11/26/24 Exam# [id number] Ordering Dr: Tanisha Bahena DO PROCEDURE: KNEE [...] No acute abnormality is seen. Reading Location: [id number] CC: Dr. Tanisha Bahena DO; Dr. Sylvia Lizama MD [employer] Supervisor: Signed Normal [facility] L499.0042on 11-26-2024 Trop T High Sen 18 ng/L High <=14 [facility] Comment on above: Performed By: #### L 500.2500, L100.0100, L501.4020 #### [facility] [address] [place], [address] Trop T High Sen Normal <=14 [facility] Comment on above: Result Comment: REOR NOEL WILL NOT RUN Performed By: #### L 500.2500, L100.0100, L501.4020 #### [facility] [address] [place], [address] L499.0043on 11-26-2024 Trop T High Sen 20 ng/L High <=14 [facility] Comment on above: Performed By: #### L 500.2500, L100.0100, L501.4020 #### [facility] [address] [place], [address] L501.4021on 11-26-2024 Trop T High Sen 18 ng/L High <=14 [facility] Comment on above: Performed By: #### L 500.2500, L100.0100, L501.4020 #### [facility] [address] [place], [address] Laboratory - Chemistry and C hemistry - challengeOrdered By: Tanisha Bahena on 11-26-2024 AST [Catalytic activity/Vol] 27 U/L <32 [facility] Lactic Acidon 11-26-2024 Lactate [Moles/Vol] mmol/L Normal 0.0-2.0 [facility] Comment on above: Order Comment: Y Performed By: #### L 500.4050, L501.3620, L503.6005, L100.0100 ####[facility] [address] [place], [address] Lactic acid measurementOrder ed By: Tanisha Bahena on 11-26-2024 Lactate [Moles/Vol] mmol/L 0.0-2.0 [facility] Lymphocytes Auto (Unsp spec) [#/Vol]Ordered By: Tanisha Bahena on 11-26-2024 Lymphocytes (Bld) [#/Vol] 0.76 10*3/uL Low 0.83-4.51 [facility] Lymphocytes/100 WBC Auto (Un sp spec)Ordered By: Tanisha Bahena on 11-26-2024 Lymphocytes/100 WBC (Bld) 15.0 % Low 19-41 [facility] M100.678on 11-26-2024 M100.678 Copy of report sent to Infection Control Printer MS#[id number] 11/26/24 [facility] FLUABV+SARS-CoV-2+RSV Pnl Resp ANALI+probe FLUABV+SARS-CoV-2+RSV Pnl Resp ANALI+probe SARS-CoV-2 (COVID 19) A Positive A INFLUENZA A Negative INFLUENZA B Negative RSV PCR Negative SARS-CoV-2 (COVID 19 PCR) Normal [facility] Comment on above: Performed By: #### L 500.2500, L100.0100, L501.4020 #### [facility] [address] [place], [address] MCV (mean corpuscular volume ) determinationOrdered By: Tanisha Bahena on 11-26-2024 MCV (RBC) [Entitic vol] 94.5 fL 81-99 [facility] Magnetic resonance imaging r eportOrdered By: Yoni Bhatt on 11-26-2024 Study report [facility] Imaging Services [address] [place] [address] Brain without Contrast MR#: [id number] Acct: [id number] Name: LISA UP Rep #: [id number] : 1945 F 79 From: Sam Bhatt DO PCP: Dr. Sylvia Lizama MD Status: ADM I NO Study:Brain without Contrast Date of Exam: 11/26/24 Exam# [id number] Ordering Dr: Jaxson Castillo DO PROCEDURE: CT [...] Meehan DO; Dr. Sylvia Lizama MD ~ [employer] Supervisor: Signed [facility] Mean corpuscular hemoglobin (MCH) determinationOrdered By: Tanisha Bahena on 11-26-2024 MCH (RBC) [Entitic mass] 30.5 pg 27.0-32.0 [facility] Mean corpuscular hemoglobin concentration (MCHC) determinationOrdered By: Tanisha Bahena on 11-26-2024 MCHC (RBC) [Mass/Vol] 32.3 g/dL 32-36 [facility] Mean platelet volume determi nationOrdered By: Tanisha Bahena on 11-26-2024 Platelet mean volume (Bld) [Entitic vol] 10.2 fL 6.2-12.0 [facility] Microscopic analysis of urin e for red blood cells (RBC)Ordered By: Tanisha Bahena on 11-26-2024 Urine RBC 0-5 SEEN /hpf 0-5 [facility] Monocyte percentageOrdered B y: Tanisha Bahena on 11-26-2024 Monocytes/100 WBC (Bld) 12.2 % High 0-10 [facility] Mucus LM Ql (Urine sed)Order ed By: Tanisha Bahena on 11-26-2024 Mucus Ql (Urine sed) 0 SEEN /hpf [facility] Neutrophil percentageOrdered By: Tanisha Bahena on 11-26-2024 Neutrophils/100 WBC (Bld) 71.0 % High 47-70 [facility] Nitrite Test strip Ql (U)Ord ered By: Tanisha Bahena on 11-26-2024 Nitrite Ql (U) Negative Negative [facility] No Panel InformationOrdered By: Tanisha Bahena on 11-26-2024 Troponin T High Sensitivity 18 ng/L High <14 [facility] Nucleated red blood cell per centageOrdered By: Tanisha Bahena on 11-26-2024 Nucleated RBC/100 WBC (Bld) [Ratio] 0 % 0-5 [facility] Platelet countOrdered By: Fredi Bahena on 11-26-2024 Platelets (Bld) [#/Vol] 142 10*3/uL Low 150-450 [facility] Potassium (Unsp spec) [Mass/ Vol]Ordered By: Tanisha Bahena on 11-26-2024 Potassium [Moles/Vol] 4.1 mmol/L 3.3-5.1 [facility] Protein Test strip Ql (U)Ord ered By: Tanisha Bahena on 11-26-2024 Protein Ql (U) 15 mg/dl High Negative [facility] RBC Auto (Bld) [#/Vol]Ordere d By: Tanisha Bahena on 11-26-2024 RBC (Bld) [#/Vol] 3.83 10*6/uL Low 4.2-5.4 [facility] Serum creatinine measurement (mass/volume)Ordered By: Tanisha Bahena on 11-26-2024 Creatinine [Mass/Vol] 0.72 mg/dL 0.70-1.20 [facility] Serum globulin measurementOr dered By: Tanisha Bahena on 11-26-2024 Globulin (S) [Mass/Vol] 2.4 g/dL 2.2-4.2 [facility] Serum glucose measurement (m ass/volume)Ordered By: Tanisha Bahena on 11-26-2024 Glucose [Mass/Vol] 108 mg/dL High 70-99 [facility] Serum or plasma alanine rice otransferase (ALT) measurementOrdered By: Tanisha Bahena on 11-26-2024 ALT [Catalytic activity/Vol] U/L <35 [facility] Serum or plasma albumin cirilo urement (mass/volume)Ordered By: Tanisha Bahena on 11-26-2024 Albumin [Mass/Vol] 3.7 g/dL 3.4-4.8 [facility] Serum or plasma albumin/glob ulin mass ratioOrdered By: Tanisha Bahena on 11-26-2024 Albumin/Globulin [Mass ratio] 1.5 {ratio} 0.9-2.4 [facility] Serum or plasma alkaline anitha sphatase measurementOrdered By: Tanisha Bahena on 11-26-2024 ALP [Catalytic activity/Vol] 66 U/L 35-104 [facility] Serum or plasma calcium cirilo urement (mass/volume)Ordered By: Tanisha Bahena on 11-26-2024 Calcium [Mass/Vol] 9.4 mg/dL 7.6-11.0 [facility] Serum or plasma creatine kin ase activityOrdered By: Tanisha Bahena on 11-26-2024 CK [Catalytic activity/Vol] 183 U/L 24-195 [facility] Serum or plasma urea nitroge n measurement (mass/volume)Ordered By: Tanisha Bahena on 11-26-2024 Urea nitrogen [Mass/Vol] 11 mg/dL 4-19 [facility] Sodium levelOrdered By: Nicole Bahena on 11-26-2024 Sodium [Moles/Vol] 138 mmol/L 133-145 [facility] Total proteinOrdered By: Danica Bahena on 11-26-2024 Protein [Mass/Vol] 6.1 g/dL 5.9-8.4 [facility] Troponin T.cardiac High sens itivity method [Mass/Vol]Ordered By: Jaxson Meehan on 11-26-2024 Troponin T High Sensitivity 2 Hour 18 ng/L High <14 [facility] Troponin T.cardiac High sens itivity method [Mass/Vol]Ordered By: Tanisha Bahena on 11-26-2024 Troponin T High Sensitivity 4 Hour 20 ng/L High <14 [facility] Urinalysis, Completeon 11-26 EPI,SQUAMOUS 0-5 SEEN Normal 5-10 [facility] Comment on above: Order Comment: 'TROP ' Serial specimen #1, #2 or #3: 1 Performed By: #### L 500.2500, L100.0100, L501.4020 #### [facility] [address] [facility] [address] RBC 0-5 SEEN Normal 0-5 [facility] Comment on above: Order Comment: 'TROP ' Serial specimen #1, #2 or #3: 1 Performed By: #### L 500.2500, L100.0100, L501.4020 #### [facility] [address] [place], [address] WBC 0-5 SEEN Normal 0-5 [facility] Comment on above: Order Comment: 'TROP ' Serial specimen #1, #2 or #3: 1 Performed By: #### L 500.2500, L100.0100, L501.4020 #### [facility] [address] [place], [address] BACTERIA 0 SEEN Normal None Seen [facility] Comment on above: Order Comment: 'TROP ' Serial specimen #1, #2 or #3: 1 Performed By: #### L 500.2500, L100.0100, L501.4020 #### [facility] [address] [facility] [address] Mucus Ql (Urine sed) 0 SEEN Normal [facility] Comment on above: Order Comment: 'TROP ' Serial specimen #1, #2 or #3: 1 Performed By: #### L 500.2500, L100.0100, L501.4020 #### [facility] [address] [place], [place], [address] Urine blood detectionOrdered By: Tanisha Bahena on 11-26-2024 Urine Occult Blood 10 /ul High Negative [facility] Urine clarityOrdered By: Danica Bahena on 11-26-2024 Clarity (U) Clear Clear [facility] Urine color determinationOrd ered By: Tanisha Bahena on 11-26-2024 Color (U) Yellow Yellow [facility] Urine leukocyte esterase det ection by dipstickOrdered By: Tanisha Bahena on 11-26-2024 Leukocyte esterase Test strip Ql (U) Negative Negative [facility] Urine pHOrdered By: Tanisha garcia on 11-26-2024 pH (U) 7.0 [pH] 5.0 - 8.0 [facility] Urine sediment bacteria coun t by microscopy (number/high power field)Ordered By: Tanisha Bahena on 11-26-2024 Bacteria LM.HPF (Urine sed) [#/Area] 0 /[HPF] None Seen [facility] Urine specific gravity measu rementOrdered By: Tanisha Bahena on 11-26-2024 Specific gravity (U) [Rel density] 1.010 1.002-1.030 [facility] Urobilinogen Ql (U)Ordered B y: Tanisha Bahena on 11-26-2024 Urobilinogen (U) [Mass/Vol] 1 mg/dL High Normal [facility] White blood cell (WBC) count Ordered By: Tanisha Bahena on 11-26-2024 WBC (Bld) [#/Vol] 5.1 10*3/uL 4.4-11.0 [facility] White blood cell countOrdere d By: Tanisha Bahena on 11-26-2024 Urine WBC 0-5 SEEN /hpf 0-5 [facility] Absolute neutrophil countOrd ered By: Zeny Oldwick on 11-06-2024 Neutrophils (Bld) [#/Vol] 1.8 10*3/uL Low 2.0-7.7 [facility] Basic Metabolic Profile (BMP )on 11-06-2024 BUN/CRE 11.6 RATIO Normal 10-20 [facility] Comment on above: Performed By: #### L 500.2500, L100.0100, L501.4020 #### [facility] [address] [place], [address] CA,Total 8.9 mg/dL Normal 8.5-10.1 [facility] Comment on above: Performed By: #### L 500.2500, L100.0100, L501.4020 #### [facility] [address] [place], [address] Chloride [Moles/Vol] 110 mmol/L High 98-107 [facility] Comment on above: Performed By: #### L 500.2500, L100.0100, L501.4020 #### [facility] [address] [place], [address] CO2 [Moles/Vol] 26.0 mmol/L Normal 21.0-32.0 [facility] Comment on above: Performed By: #### L 500.2500, L100.0100, L501.4020 #### [facility] [address] [place], [address] Creatinine [Mass/Vol] 0.78 mg/dL Normal 0.55-1.02 [facility] Comment on above: Result Comment: The validity of the calculated GFR GFRAA in patients over 70 years has not been determined. Clinical correlation is essential. Performed By: #### L 500.2500, L100.0100, L501.4020 #### [facility] [address] [place], [address] EST GFR - AA 91 mL/min Normal >60 [facility] Comment on above: Result Comment: Afri can [place] GFR Calc Performed By: #### L 500.2500, L100.0100, L501.4020 #### [facility] [address] [place], [address] GAP 6 Normal 5-15 [facility] Comment on above: Performed By: #### L 500.2500, L100.0100, L501.4020 #### [facility] [address] [place], [address] GFR/1.73 sq M.predicted among non-blacks MDRD (S/P/Bld) [Vol rate/Area] 75 mL/min/{1.73_m2} Normal >60 [facility] Comment on above: Result Comment: Non- GFR Calc Performed By: #### L 500.2500, L100.0100, L501.4020 #### [facility] [address] [place], [address] Glucose [Mass/Vol] 104 mg/dL Normal 74-106 [facility] Comment on above: Result Comment: Fast ing Glucose result from 100 to 125 mg/dL suggests IMPAIRED HOMEOSTASIS per A.D.A. criteria. Performed By: #### L 500.2500, L100.0100, L501.4020 #### [facility] [address] [place], [address] Potassium [Moles/Vol] 3.5 mmol/L Normal 3.5-5.1 [facility] Comment on above: Performed By: #### L 500.2500, L100.0100, L501.4020 #### [facility] [address] [place], [address] Sodium [Moles/Vol] 142 mmol/L Normal 136-145 [facility] Comment on above: Performed By: #### L 500.2500, L100.0100, L501.4020 #### [facility] [address] [place], [address] Urea nitrogen [Mass/Vol] 9 mg/dL Normal 7-18 [facility] Comment on above: Performed By: #### L 500.2500, L100.0100, L501.4020 #### [facility] [address] [place], [address] Basophil percentageOrdered B y: Zeny Wolff on 11-06-2024 Basophils/100 WBC (Bld) 0.0 % 0-1 [facility] Blood urea nitrogen (BUN)/cr eatinine ratioOrdered By: Zeny Wolff on 11-06-2024 Urea nitrogen/Creatinine [Mass ratio] 11.6 mg/mg 10-20 [facility] CBC W/Diff, Automatedon 10-23 Absolute Lymph 0.83 X10 3/uL Normal 0.83-4.51 [facility] Comment on above: Performed By: #### L 500.2500, L100.0100, L501.4020 #### [facility] [address] [place], [address] Absolute Neut 1.8 X10 3/uL Low 2.0-7.7 [facility] Comment on above: Performed By: #### L 500.2500, L100.0100, L501.4020 #### [facility] [address] [place], [address] Basophils/100 WBC (Bld) 0.0 % Normal 0-1 [facility] Comment on above: Performed By: #### L 500.2500, L100.0100, L501.4020 #### [facility] [address] [place], [address] Eosinophils/100 WBC (Bld) 2.3 % Normal 0-5 [facility] Comment on above: Performed By: #### L 500.2500, L100.0100, L501.4020 #### [facility] [address] [place], [address] Erythrocyte distribution width (RBC) [Ratio] 12.8 % Normal 11.6-14.6 [facility] Comment on above: Performed By: #### L 500.2500, L100.0100, L501.4020 #### [facility] [address] [place], [address] Hematocrit (Bld) [Volume fraction] 37.2 % Normal 37-47 [facility] Comment on above: Performed By: #### L 500.2500, L100.0100, L501.4020 #### [facility] [address] [place], [address] Hemoglobin (Bld) [Mass/Vol] 11.9 g/dL Low 12.0-15.0 [facility] Comment on above: Performed By: #### L 500.2500, L100.0100, L501.4020 #### [facility] [address] [place], [address] IG% 0.300 Normal 0.0-0.9 [facility] Comment on above: Result Comment: IG% - Immature Granulocytes (promyelocytes, myelocytes and metamyelocytes) > 1% indicates that a LEFT SHIFT is Present. Performed By: #### L 500.2500, L100.0100, L501.4020 #### [facility] [address] [place], [address] Lymphocytes/100 WBC (Bld) 26.8 % Normal 19-41 [facility] Comment on above: Performed By: #### L 500.2500, L100.0100, L501.4020 #### [facility] [address] [place], [address] MCH (RBC) [Entitic mass] 30.9 pg Normal 27.0-32.0 [facility] Comment on above: Performed By: #### L 500.2500, L100.0100, L501.4020 #### [facility] [address] [place], [address] MCHC (RBC) [Mass/Vol] 32.0 g/dL Normal 32-36 [facility] Comment on above: Performed By: #### L 500.2500, L100.0100, L501.4020 #### [facility] [address] [place], [address] MCV (RBC) [Entitic vol] 96.6 fL Normal 81-99 [facility] Comment on above: Performed By: #### L 500.2500, L100.0100, L501.4020 #### [facility] [address] [place], [address] Monocytes/100 WBC (Bld) 12.6 % High 0-10 [facility] Comment on above: Performed By: #### L 500.2500, L100.0100, L501.4020 #### [facility] [address] [place], [address] Neutrophils/100 WBC (Bld) 58.0 % Normal 47-70 [facility] Comment on above: Performed By: #### L 500.2500, L100.0100, L501.4020 #### [facility] [address] [place], [address] Nucleated RBC (Bld) [#/Vol] 0 10*3/uL Normal 0-5 [facility] Comment on above: Performed By: #### L 500.2500, L100.0100, L501.4020 #### [facility] [address] [place], [address] Platelet mean volume (Bld) [Entitic vol] 9.8 fL Normal 6.2-12.0 [facility] Comment on above: Performed By: #### L 500.2500, L100.0100, L501.4020 #### [facility] [address] [place], [address] Platelets (Bld) [#/Vol] 101 10*3/uL Low 150-450 [facility] Comment on above: Performed By: #### L 500.2500, L100.0100, L501.4020 #### [facility] [address] [place], [address] RBC (Bld) [#/Vol] 3.85 10*6/uL Low 4.2-5.4 [facility] Comment on above: Performed By: #### L 500.2500, L100.0100, L501.4020 #### [facility] [address] [place], [address] RDW SD 45.1 fl High 35.1-43.9 [facility] Comment on above: Performed By: #### L 500.2500, L100.0100, L501.4020 #### [facility] [address] [place], [address] WBC (Bld) [#/Vol] 3.1 10*3/uL Low 4.4-11.0 [facility] Comment on above: Performed By: #### L 500.2500, L100.0100, L501.4020 #### [facility] [address] [place], [address] Carbon dioxide measurementOr dered By: Zeny Wolff on 11-06-2024 CO2 [Moles/Vol] 26.0 mmol/L 21.0-32.0 [facility] Chest 1 View (Portable)on Chest 1 View (Portable) [facility] Imaging Services [address] [place] [address] Chest 1 View (Portable) MR#: [id number] Acct: [id number] Name: LISA UP Rep #: [id number] : 1945 F 79 From: Melyssa Hyatt nd, MD PCP: Dr. Sylvia Lizama MD Status: [facility] ER Study: Chest 1 View (Portable) Date of Exam: 11/06/24 Exam# [id number] Ordering Dr: Zeny Wolff DO PROCEDURE: CHEST [...] View (Portable) IMPRESSION: NEGATIVE CHEST. Reading Location: [facility] CC: Dr. Zeny Wolff DO; Dr. Sylvia Lizama MD [employer] Supervisor: Signed Normal [facility] Chloride measurementOrdered By: Zeny Wolff on 11-06-2024 Chloride [Moles/Vol] 110 mmol/L High 98-107 [facility] Emergency Department Summary on 11-06-2024 Emergency Department Summary [facility] Medical Records Department [address] [place] [address] Emergency Department Summary 11/06/24 MR#: [id number] Acct: [id number] Name: LISA UP Rep #: [id number] : 1945 79 From: Zeny Wolff DO [...] She states that she was seen at [facility] urgent care on November 01 and was diagnosed with a UTI. Urine culture per MyChart grew out mixed radha. She was treated with nitrofurantoin. She also had a chest x-ray that was negative. She states that nothing is particularly different today it just has persisted. She feels globally weak. She states she is not eating as well. [facility] Medical History DVT (deep venous thrombosis) Post-menopausal [...] vaccine, mRNA, Allergy Anaphylaxis Verified 11/06/24 13:43 [id number], erythromycin base Allergy Rash Verified 11/06/24 13:43 [...] polydipsia, po (more content not included)... Normal [facility] Eosinophil percentageOrdered By: Zeny Wolff on 11-06-2024 Eosinophils/100 WBC (Bld) 2.3 % 0-5 [facility] Erythrocyte distribution wid th ratioOrdered By: Zeny Wolff on 11-06-2024 Erythrocyte distribution width (RBC) [Ratio] 12.8 % 11.6-14.6 [facility] Erythrocyte distribution wid th standard deviationOrdered By: Zeny Wolff on 11-06-2024 Erythrocyte distribution width (RBC) [Entitic vol] 45.1 fL High 35.1-43.9 [facility] Estimated glomerular filtrat ion rate (GFR) AmericanOrdered By: Zeny Wolff on 11-06-2024 Estimated GFR (MDRD) Amer 91 mL/min >60 [facility] Comment on above: GFR Calc Glomerular filtration rate ( GFR) estimationOrdered By: Zeny Wolff on 11-06-2024 Estimated GFR (MDRD) Non-Af Amer 75 mL/min >60 [facility] Comment on above: Non- GFR Calc Glucose measurementOrdered B y: Zeny Wolff on 11-06-2024 Glucose [Mass/Vol] 104 mg/dL 74-106 [facility] Comment on above: Fasting Glucose resu lt from 100 to 125 mg/dL suggests IMPAIRED HOMEOSTASIS per A.D.A. criteria. Hematocrit Auto (Bld) [Volum e fraction]Ordered By: Zeny Wolff on 11-06-2024 Hematocrit (Bld) [Volume fraction] 37.2 % 37-47 [facility] Hemoglobin measurementOrdere d By: Zeny Wolff on 11-06-2024 Hemoglobin (Bld) [Mass/Vol] 11.9 g/dL Low 12.0-15.0 [facility] Immature granulocytes/100 WB C Auto (Bld)Ordered By: Zeny Wolff on 11-06-2024 Immature granulocytes/100 WBC (Bld) 0.300 % 0.0-0.9 [facility] Comment on above: IG% - Immature Granu locytes (promyelocytes, myelocytes and metamyelocytes) > 1% indicates that a LEFT SHIFT is Present. Lymphocytes Auto (Unsp spec) [#/Vol]Ordered By: Zeny Wolff on 11-06-2024 Lymphocytes (Bld) [#/Vol] 0.83 10*3/uL 0.83-4.51 [facility] Lymphocytes/100 WBC Auto (Un sp spec)Ordered By: Zeny Wolff on 11-06-2024 Lymphocytes/100 WBC (Bld) 26.8 % 19-41 [facility] MCV (mean corpuscular volume ) determinationOrdered By: Zeny Wolff on 11-06-2024 MCV (RBC) [Entitic vol] 96.6 fL 81-99 [facility] Mean corpuscular hemoglobin (MCH) determinationOrdered By: Zeny Wolff on 11-06-2024 MCH (RBC) [Entitic mass] 30.9 pg 27.0-32.0 [facility] Mean corpuscular hemoglobin concentration (MCHC) determinationOrdered By: Zeny Wolff on 11-06-2024 MCHC (RBC) [Mass/Vol] 32.0 g/dL 32-36 [facility] Mean platelet volume determi nationOrdered By: Zeny Wolff on 11-06-2024 Platelet mean volume (Bld) [Entitic vol] 9.8 fL 6.2-12.0 [facility] Monocyte percentageOrdered B y: Zeny Wolff on 11-06-2024 Monocytes/100 WBC (Bld) 12.6 % High 0-10 [facility] Neutrophil percentageOrdered By: Zeny Wolff on 11-06-2024 Neutrophils/100 WBC (Bld) 58.0 % 47-70 [facility] Nucleated red blood cell per centageOrdered By: Zeny Wolff on 11-06-2024 Nucleated RBC/100 WBC (Bld) [Ratio] 0 % 0-5 [facility] Platelet countOrdered By: Jose Wolff on 11-06-2024 Platelets (Bld) [#/Vol] 101 10*3/uL Low 150-450 [facility] Potassium measurementOrdered By: Zeny Wolff on 11-06-2024 Potassium [Moles/Vol] 3.5 mmol/L 3.5-5.1 [facility] RBC Auto (Bld) [#/Vol]Ordere d By: Zeny Wolff on 11-06-2024 RBC (Bld) [#/Vol] 3.85 10*6/uL Low 4.2-5.4 [facility] Serum anion gap measurementO rdered By: Zeny Wolff on 11-06-2024 Anion gap [Moles/Vol] 6 mmol/L 02-03 [facility] Serum or plasma calcium cirilo urement (mass/volume)Ordered By: Zeny Wolff on 11-06-2024 Calcium [Mass/Vol] 8.9 mg/dL 8.5-10.1 [facility] Serum or plasma creatinine m easurement (mass/volume)Ordered By: Zeny Wolff on 11-06-2024 Creatinine [Mass/Vol] 0.78 mg/dL 0.55-1.02 [facility] Comment on above: The validity of the calculated GFR & GFRAA in patients over 70 years has not been determined. Clinical correlation is essential. Serum or plasma urea nitroge n measurement (mass/volume)Ordered By: Zeny Wolff on 11-06-2024 Urea nitrogen [Mass/Vol] 9 mg/dL - [facility] Sodium levelOrdered By: Julius Wolff on 11-06-2024 Sodium [Moles/Vol] 142 mmol/L 136-145 [facility] White blood cell (WBC) count Ordered By: Zeny Wolff on 11-06-2024 WBC (Bld) [#/Vol] 3.1 10*3/uL Low 4.4-11.0 [facility] UA DIP, URINE (POC)on 2024 BILIRUBIN UA (POCT) Negative Negative [facility] CLARITY UA (POCT) Clear [facility] COLOR UA (POCT) Yellow [facility] GLUCOSE UA (POCT) Negative Negative mg/dL [facility] Hemoglobin Ql (U) Trace-intact Abnormal Negative [facility] Interpretation and review of laboratory results Abnormal [facility] KETONE UA (POCT) Negative Negative mg/dL [facility] LEUKOCYTES UA (POCT) Moderate Abnormal Negative [facility] NITRITE UA (POCT) Negative Negative [facility] PH UA (POCT) 7 4.5 - 8.0 [facility] Protein Ql (U) >=300 Abnormal Negative mg/dL [facility] SPECIFIC GRAVITY UA (POCT) 1.02 1.005 - 1.030 [facility] UROBILINOGEN UA (POCT) 1 Ana l E.U./dL [facility] Location:[address], [place], [place], [id number] [place] [address] OF CARE [facility] XR Chest PA and Lateralon IMPRESSION: No acute radiographic abnormality. [employer] Supervisor: IVAN Transcribe Date/Time: Nov 01 2024 12:49P Dictated by : Blessing VASQUEZ MD This examination was interpreted and the report reviewed and electronically signed by: Blessnig VASQUEZ MD on Nov 01 2024 12:53PM [facility] DIVISION OF RADIOLOGY * * *Final [...] the thoracic spine. DIVISION OF RADIOLOGY Provider, [facility] - 11/01/2024 * * *Final Report* * [...] spine. IMPRESSION IMPRESSION: No acute radiographic abnormality. [employer] Supervisor: IVAN Transcribe Date/Time: Nov 01 2024 12:49P Dictated by : Blessing VASQUEZ MD This examination was interpreted and the report reviewed and electronically signed by: Blessing VASQUEZ MD on Nov 01 2024 12:53PM EST [facility] Radiology Study observation (narrative) [facility] XR Chest PA and LateralOrder ed By: [facility] Provider on 11-01-2024 [facility] MR Brain WO and W contrast I Von 08-12-2024 IMPRESSION: Stable appearance of the brain since 10/17/2017. No evidence of an acute intracranial process or intracranial mass. [employer] Supervisor: IVAN Transcribe Date/Time: Aug 12 2024 1:27P Dictated by : CÉSAR TAVAREZ MD This examination was interpreted and the report reviewed and electronically signed by: CÉSAR TAVAREZ MD on Aug 12 2024 1:33PM [facility] DIVISION OF RADIOLOGY * * *Final Report* * * DATE OF EXAM: Aug 12 2024 1:10PM [facility] 0295 - MRI BRAIN WO/W IVCON [...] are otherwise clear. DIVISION OF RADIOLOGY Provider, Keven Cisneros - 08/12/2024 * * *Final Report* * * DATE OF EXAM: Aug 12 2024 1:10PM [facility] 0295 - MRI BRAIN WO/W IVCON [...] an acute intracranial process or intracranial mass. [employer] Supervisor: IVAN Transcribe Date/Time: Aug 12 2024 1:27P Dictated by : CÉSAR TAVAREZ MD This examination was interpreted and the report reviewed and electronically signed by: CÉSAR TAVAREZ MD on Aug 12 2024 1:33PM EST [facility] Radiology Study observation (narrative) [facility] MR Brain WO and W contrast I VOrdered By: [facility] Provider on 08-12-2024 [facility] UA DIP, URINE (POC)on 2023 BILIRUBIN UA (POCT) Negative Negative [facility] CLARITY UA (POCT) Clear [facility] COLOR UA (POCT) Yellow [facility] GLUCOSE UA (POCT) Negative Negative mg/dL [facility] Hemoglobin Ql (U) Moderate Abnormal Negative [facility] Interpretation and review of laboratory results Abnormal [facility] KETONE UA (POCT) Negative Negative mg/dL [facility] LEUKOCYTES UA (POCT) Small Abnormal Negative [facility] NITRITE UA (POCT) Negative Negative [facility] PH UA (POCT) 7.0 4.5 - 8.0 [facility] Protein Ql (U) >=300 Abnormal Negative mg/dL [facility] SPECIFIC GRAVITY UA (POCT) 1.020 1.005 - 1.030 [facility] UROBILINOGEN UA (POCT) 0.2 Ana l E.U./dL [facility] Location:[address], [id number] [place] [address] POINT OF CARE [facility] 12 Lead EKGon 07-04-2024 12 Lead EKG [facility] Cardiovascular Services [address] [place] [address] 12 Lead EKG 07/04/24 0457 MR#: [id number] Acct: [id number] Name: LISA UP Rep #: [id number] : 1945 78 From: Pavel Red MD [...] : 462 ms Sinus rhythm with short CO Left ventricular hypertrophy with repolarization abnormality ( R in aVL , Jacobo product ) Confirmed by Pavel Red ([id number]), software developer consultant DARIEN SALMERON ([id number]) on 07/05/2024 9:40:12 AM Referred By: TOAN Confirmed By:Pavel Red 07/05/24 0940 Date Pavel Red MD CC: Dr. Sylvia Lizama MD; Marcell Gutiérrez DO Signed Normal [facility] Basic Metabolic Profile (BMP )on 07-04-2024 BUN/CRE 18.3 RATIO Normal - [facility] Comment on above: Order Comment: 'TROP ' Serial specimen #1, #2 or #3: 1 Performed By: #### L 500.2500, L100.0100, L501.4020 #### [facility] [address] [place], [address] CA,Total 9.9 mg/dL Normal 8.5-10.1 [facility] Comment on above: Order Comment: 'TROP ' Serial specimen #1, #2 or #3: 1 Performed By: #### L 500.2500, L100.0100, L501.4020 #### [facility] [address] [place], [address] Chloride [Moles/Vol] 107 mmol/L Normal 98-107 [facility] Comment on above: Order Comment: 'TROP ' Serial specimen #1, #2 or #3: 1 Performed By: #### L 500.2500, L100.0100, L501.4020 #### [facility] [address] [place], [address] CO2 [Moles/Vol] 28.0 mmol/L Normal 21.0-32.0 [facility] Comment on above: Order Comment: 'TROP ' Serial specimen #1, #2 or #3: 1 Performed By: #### L 500.2500, L100.0100, L501.4020 #### [facility] [address] [place], [address] Creatinine [Mass/Vol] 0.82 mg/dL Normal 0.55-1.02 [facility] Comment on above: Order Comment: 'TROP ' Serial specimen #1, #2 or #3: 1 Result Comment: The validity of the calculated GFR GFRAA in patients over 70 years has not been determined. Clinical correlation is essential. Performed By: #### L 500.2500, L100.0100, L501.4020 #### [facility] [address] [place], [address] ECRCL 62.80 ml/min Normal [facility] Comment on above: Order Comment: 'TROP ' Serial specimen #1, #2 or #3: 1 Performed By: #### L 500.2500, L100.0100, L501.4020 #### [facility] [address] [place], [address] EST GFR - AA 86 mL/min Normal >60 [facility] Comment on above: Order Comment: 'TROP ' Serial specimen #1, #2 or #3: 1 Result Comment: Afri can [place] GFR Calc Performed By: #### L 500.2500, L100.0100, L501.4020 #### [facility] [address] [place], [address] GAP 6 Normal 5-15 [facility] Comment on above: Order Comment: 'TROP ' Serial specimen #1, #2 or #3: 1 Performed By: #### L 500.2500, L100.0100, L501.4020 #### [facility] [address] [place], [address] GFR/1.73 sq M.predicted among non-blacks MDRD (S/P/Bld) [Vol rate/Area] 71 mL/min/{1.73_m2} Normal >60 [facility] Comment on above: Order Comment: 'TROP ' Serial specimen #1, #2 or #3: 1 Result Comment: Non- GFR Calc Performed By: #### L 500.2500, L100.0100, L501.4020 #### [facility] [address] [place], [address] Glucose [Mass/Vol] 119 mg/dL High 74-106 [facility] Comment on above: Order Comment: 'TROP ' Serial specimen #1, #2 or #3: 1 Result Comment: Fast ing Glucose result from 100 to 125 mg/dL suggests IMPAIRED HOMEOSTASIS per A.D.A. criteria. Performed By: #### L 500.2500, L100.0100, L501.4020 #### [facility] [address] [place], [address] Potassium [Moles/Vol] 3.6 mmol/L Normal 3.5-5.1 [facility] Comment on above: Order Comment: 'TROP ' Serial specimen #1, #2 or #3: 1 Performed By: #### L 500.2500, L100.0100, L501.4020 #### [facility] [address] [place], [address] Sodium [Moles/Vol] 141 mmol/L Normal 136-145 [facility] Comment on above: Order Comment: 'TROP ' Serial specimen #1, #2 or #3: 1 Performed By: #### L 500.2500, L100.0100, L501.4020 #### [facility] [address] [place], [address] Urea nitrogen [Mass/Vol] 15 mg/dL Normal 7-18 [facility] Comment on above: Order Comment: 'TROP ' Serial specimen #1, #2 or #3: 1 Performed By: #### L 500.2500, L100.0100, L501.4020 #### [facility] [address] [place], [address] Brain/Head without Contrasto n 07-04-2024 Brain/Head without Contrast [facility] Imaging Services [address] [place], [place] [address] Brain/Head without Contrast MR#: [id number] Acct: [id number] Name: LISA UP Rep #: [id number] : 1945 F 78 From: Pavel Parks PCP: Dr. Sylvia Lizama MD Status: [facility] ER Study: Brain/Head without Contrast Date of Exam: 06/22 12/13 Exam# [id number] Ordering Dr: Marcell Gutiérrez DO [id number] EXAM: CT HEAD WITHOUT INTRAVENOUS CONTRAST CLINICAL [...] Dr. Sylvia Lizama MD; Marcell Gutiérrez DO [employer] Supervisor: Signed Normal [facility] CBC W/Diff, Automatedon 10-2023 Absolute Lymph 1.43 X10 3/uL Normal 0.83-4.51 [facility] Comment on above: Performed By: #### L 500.2500, L100.0100, L501.4020 #### [facility] [address] [place], [address] Absolute Neut 7.3 X10 3/uL Normal 2.0-7.7 [facility] Comment on above: Performed By: #### L 500.2500, L100.0100, L501.4020 #### [facility] [address] [place], [address] Basophils/100 WBC (Bld) 0.2 % Normal 0-1 [facility] Comment on above: Performed By: #### L 500.2500, L100.0100, L501.4020 #### [facility] [address] [place], [address] Eosinophils/100 WBC (Bld) 0.1 % Normal 0-5 [facility] Comment on above: Performed By: #### L 500.2500, L100.0100, L501.4020 #### [facility] [address] [place], [address] Erythrocyte distribution width (RBC) [Ratio] 13.1 % Normal 11.6-14.6 [facility] Comment on above: Performed By: #### L 500.2500, L100.0100, L501.4020 #### [facility] [address] [place], [address] Hematocrit (Bld) [Volume fraction] 40.0 % Normal 37-47 [facility] Comment on above: Performed By: #### L 500.2500, L100.0100, L501.4020 #### [facility] [address] [place], [address] Hemoglobin (Bld) [Mass/Vol] 12.6 g/dL Normal 12.0-15.0 [facility] Comment on above: Performed By: #### L 500.2500, L100.0100, L501.4020 #### [facility] [address] [place], [address] IG% 0.700 Normal 0.0-0.9 [facility] Comment on above: Result Comment: IG% - Immature Granulocytes (promyelocytes, myelocytes and metamyelocytes) > 1% indicates that a LEFT SHIFT is Present. Performed By: #### L 500.2500, L100.0100, L501.4020 #### [facility] [address] [place], [address] Lymphocytes/100 WBC (Bld) 15.1 % Low 19-41 [facility] Comment on above: Performed By: #### L 500.2500, L100.0100, L501.4020 #### [facility] [address] [place], [address] MCH (RBC) [Entitic mass] 30.5 pg Normal 27.0-32.0 [facility] Comment on above: Performed By: #### L 500.2500, L100.0100, L501.4020 #### [facility] [address] [place], [address] MCHC (RBC) [Mass/Vol] 31.5 g/dL Low 32-36 [facility] Comment on above: Performed By: #### L 500.2500, L100.0100, L501.4020 #### [facility] [address] [place], [address] MCV (RBC) [Entitic vol] 96.9 fL Normal 81-99 [facility] Comment on above: Performed By: #### L 500.2500, L100.0100, L501.4020 #### [facility] [address] [place], [address] Monocytes/100 WBC (Bld) 7.2 % Normal 0-10 [facility] Comment on above: Performed By: #### L 500.2500, L100.0100, L501.4020 #### [facility] [address] [place], [address] Neutrophils/100 WBC (Bld) 76.7 % High 47-70 [facility] Comment on above: Performed By: #### L 500.2500, L100.0100, L501.4020 #### [facility] [address] [place], [address] Nucleated RBC (Bld) [#/Vol] 0 10*3/uL Normal 0-5 [facility] Comment on above: Performed By: #### L 500.2500, L100.0100, L501.4020 #### [facility] [address] [place], [address] Platelet mean volume (Bld) [Entitic vol] 10.0 fL Normal 6.2-12.0 [facility] Comment on above: Performed By: #### L 500.2500, L100.0100, L501.4020 #### [facility] [address] [place], [address] Platelets (Bld) [#/Vol] 149 10*3/uL Low 150-450 [facility] Comment on above: Performed By: #### L 500.2500, L100.0100, L501.4020 #### [facility] [address] [place], [address] RBC (Bld) [#/Vol] 4.13 10*6/uL Low 4.2-5.4 [facility] Comment on above: Performed By: #### L 500.2500, L100.0100, L501.4020 #### [facility] [address] [place], [address] RDW SD 46.4 fl High 35.1-43.9 [facility] Comment on above: Performed By: #### L 500.2500, L100.0100, L501.4020 #### [facility] [address] [place], [address] WBC (Bld) [#/Vol] 9.5 10*3/uL Normal 4.4-11.0 [facility] Comment on above: Performed By: #### L 500.2500, L100.0100, L501.4020 #### [facility] [address] [place], [address] Chest PA and Lateralon 07-04 Chest PA and Lateral [facility] Imaging Services [address] [place] [address] Chest PA and Lateral MR#: [id number] Acct: [id number] Name: LISA UP Rep #: [id number] : 1945 F 78 From: Pavel Parks PCP: Dr. Sylvia Lizama MD Status: [facility] ER Study: Chest PA and Lateral Date of Exam: 07/04/24 Exam# [id number] Ordering Dr: Marcell Gutiérrez DO [id number] EXAM: XR CHEST, 2 VIEWS CLINICAL INDICATION: [...] Dr. Sylvia Lizama MD; Marcell Gutiérrez DO [employer] Supervisor: Signed Normal [facility] Emergency Department Summary on 07-04-2024 Emergency Department Summary [facility] Medical Records Department [address] [place] [address] Emergency Department Summary 07/04/24 MR#: [id number] Acct: [id number] Name: LISA UP Rep #: [id number] : 1945 78 From: Marcell Gutiérrez DO [...] and took her first dose on Friday [facility] Medical History DVT (deep venous thrombosis) Post-menopausal [...] vaccine, mRNA, Allergy Anaphylaxis Verified 07/04/24 04:13 [id number], erythromycin base Allergy Rash Verified 07/04/24 04:13 [...] 68 Re (more content not included)... Normal [facility] L501.4020on 07-04-2024 TROPONIN-I HS 6 pg/mL Normal 3.0-54.0 [facility] Comment on above: Order Comment: 'TROP ' Serial specimen #1, #2 or #3: 1 Result Comment: Plea se Note: New Test Units and Gender Specific Reference Ranges. For more information see Policy Stat Procedure Lejunior High Sensitivity Troponin (TNIH) and attachments. Performed By: #### L 500.2500, L100.0100, L501.4020 #### [facility] [address] [place], [address] M100.678on 07-04-2024 M100.678 Pending SARS-CoV-2 (COVID 19) Negative INFLUENZA A Negative INFLUENZA B Negative RSV PCR Negative Normal [facility] Comment on above: Performed By: #### L 500.2500, L100.0100, L501.4020 #### [facility] [address] [place], [address] UA DIP, URINE (POC)on 2023 BILIRUBIN UA (POCT) Negative Negative [facility] CLARITY UA (POCT) Clear [facility] COLOR UA (POCT) Yellow [facility] GLUCOSE UA (POCT) Negative Negative mg/dL [facility] Hemoglobin Ql (U) Large Abnormal Negative [facility] Interpretation and review of laboratory results Abnormal [facility] KETONE UA (POCT) Negative Negative mg/dL [facility] LEUKOCYTES UA (POCT) Small Abnormal Negative [facility] NITRITE UA (POCT) Negative Negative [facility] PH UA (POCT) 6.5 4.5 - 8.0 [facility] Protein Ql (U) >=300 Abnormal Negative mg/dL [facility] SPECIFIC GRAVITY UA (POCT) 1.025 1.005 - 1.030 [facility] UROBILINOGEN UA (POCT) 0.2 Ana l E.U./dL [facility] Location:[facility] [address] [facility], [place], [place], [id number] [place] [address] POINT OF CARE [facility] 12 Lead EKGon 05-08-2024 12 Lead EKG [facility] Cardiovascular Services [address] [place] [address] 12 Lead EKG 05/08/24 1502 MR#: [id number] Acct: [id number] Name: LISA UP Rep #: [id number] : 1945 78 From: Shala Louis MD [...] ECG Confirmed by DREW ROMERO, STEPHEN ([id number]), software developer consultant TIMA WICK ([id number]) on 05/14/2024 6:15:23 AM Referred By: Confirmed By:VICTORINO LOUIS MD 05/14/24 0615 Date Shala Louis MD CC: Dr. Evans Jones MD; Dr. Sylvia Lizama MD Signed Normal [facility] Basic Metabolic Profile (BMP )on 05-08-2024 BUN/CRE 11.3 RATIO Normal 10-20 [facility] Comment on above: Order Comment: 'TROP ' Serial specimen #1, #2 or #3: 1 Performed By: #### L 500.2500, L100.0100, L501.4020 #### [facility] [address] [place], [address] CA,Total 8.8 mg/dL Normal 8.5-10.1 [facility] Comment on above: Order Comment: 'TROP ' Serial specimen #1, #2 or #3: 1 Performed By: #### L 500.2500, L100.0100, L501.4020 #### [facility] [address] [place], [address] Chloride [Moles/Vol] 106 mmol/L Normal 98-107 [facility] Comment on above: Order Comment: 'TROP ' Serial specimen #1, #2 or #3: 1 Performed By: #### L 500.2500, L100.0100, L501.4020 #### [facility] [address] [place], [address] CO2 [Moles/Vol] 29.0 mmol/L Normal 21.0-32.0 [facility] Comment on above: Order Comment: 'TROP ' Serial specimen #1, #2 or #3: 1 Performed By: #### L 500.2500, L100.0100, L501.4020 #### [facility] [address] [place], [address] Creatinine [Mass/Vol] 1.06 mg/dL High 0.55-1.02 [facility] Comment on above: Order Comment: 'TROP ' Serial specimen #1, #2 or #3: 1 Result Comment: The validity of the calculated GFR GFRAA in patients over 70 years has not been determined. Clinical correlation is essential. Performed By: #### L 500.2500, L100.0100, L501.4020 #### [facility] [address] [place], [address] ECRCL 49.01 ml/min Normal [facility] Comment on above: Order Comment: 'TROP ' Serial specimen #1, #2 or #3: 1 Performed By: #### L 500.2500, L100.0100, L501.4020 #### [facility] [address] [place], [address] EST GFR - AA 64 mL/min Normal >60 [facility] Comment on above: Order Comment: 'TROP ' Serial specimen #1, #2 or #3: 1 Result Comment: Afri can [place] GFR Calc Performed By: #### L 500.2500, L100.0100, L501.4020 #### [facility] [address] [place], [address] GAP 4 Low 5-15 [facility] Comment on above: Order Comment: 'TROP ' Serial specimen #1, #2 or #3: 1 Performed By: #### L 500.2500, L100.0100, L501.4020 #### [facility] [address] [place], [address] GFR/1.73 sq M.predicted among non-blacks MDRD (S/P/Bld) [Vol rate/Area] 53 mL/min/{1.73_m2} Low >60 [facility] Comment on above: Order Comment: 'TROP ' Serial specimen #1, #2 or #3: 1 Result Comment: Non- GFR Calc Performed By: #### L 500.2500, L100.0100, L501.4020 #### [facility] [address] [place], [address] Glucose [Mass/Vol] 122 mg/dL High 74-106 [facility] Comment on above: Order Comment: 'TROP ' Serial specimen #1, #2 or #3: 1 Result Comment: Fast ing Glucose result from 100 to 125 mg/dL suggests IMPAIRED HOMEOSTASIS per A.D.A. criteria. Performed By: #### L 500.2500, L100.0100, L501.4020 #### [facility] [address] [place], [address] Potassium [Moles/Vol] 3.8 mmol/L Normal 3.5-5.1 [facility] Comment on above: Order Comment: 'TROP ' Serial specimen #1, #2 or #3: 1 Performed By: #### L 500.2500, L100.0100, L501.4020 #### [facility] [address] [place], [address] Sodium [Moles/Vol] 139 mmol/L Normal 136-145 [facility] Comment on above: Order Comment: 'TROP ' Serial specimen #1, #2 or #3: 1 Performed By: #### L 500.2500, L100.0100, L501.4020 #### [facility] [address] [place], [address] Urea nitrogen [Mass/Vol] 12 mg/dL Normal 7-18 [facility] Comment on above: Order Comment: 'TROP ' Serial specimen #1, #2 or #3: 1 Performed By: #### L 500.2500, L100.0100, L501.4020 #### [facility] [address] [place], [address] Brain/Head without Contrasto n 05-08-2024 Brain/Head without Contrast [facility] Imaging Services [address] [place] [address] Brain/Head without Contrast MR#: [id number] Acct: [id number] Name: LISA UP Rep #: [id number] : 1945 F 78 From: Rosales Peralta MD PCP: Dr. Sylvia Lizama MD Status: REG ER Study: Brain/Head without Contrast Date of Exam: 04/22 04/14 Exam# [id number] Ordering Dr: Evans Jones MD [id number] STUDY: CT BRAIN WITHOUT CONTRAST REASON FOR [...] 15:48 EDT Reading Location ID and State: [address] [place] [address] , Service support , CC: Dr. Evans Jones MD; Dr. Sylvia Lizama MD [employer] Supervisor: Signed Normal [facility] CBC W/Diff, Automatedon 04-22 Absolute Lymph 1.09 X10 3/uL Normal 0.83-4.51 [facility] Comment on above: Performed By: #### L 500.2500, L100.0100, L501.4020 #### [facility] [address] [place], [place], [address] Absolute Neut 5.2 X10 3/uL Normal 2.0-7.7 [facility] Comment on above: Performed By: #### L 500.2500, L100.0100, L501.4020 #### [facility] [address] [place], [address] Basophils/100 WBC (Bld) 0.1 % Normal 0-1 [facility] Comment on above: Performed By: #### L 500.2500, L100.0100, L501.4020 #### [facility] [address] [place], [address] Eosinophils/100 WBC (Bld) 2.2 % Normal 0-5 [facility] Comment on above: Performed By: #### L 500.2500, L100.0100, L501.4020 #### [facility] [address] [place], [address] Erythrocyte distribution width (RBC) [Ratio] 12.8 % Normal 11.6-14.6 [facility] Comment on above: Performed By: #### L 500.2500, L100.0100, L501.4020 #### [facility] [address] [place], [address] Hematocrit (Bld) [Volume fraction] 39.7 % Normal 37-47 [facility] Comment on above: Performed By: #### L 500.2500, L100.0100, L501.4020 #### [facility] [address] [place], [address] Hemoglobin (Bld) [Mass/Vol] 12.8 g/dL Normal 12.0-15.0 [facility] Comment on above: Performed By: #### L 500.2500, L100.0100, L501.4020 #### [facility] [address] [place], [address] IG% 0.300 Normal 0.0-0.9 [facility] Comment on above: Result Comment: IG% - Immature Granulocytes (promyelocytes, myelocytes and metamyelocytes) > 1% indicates that a LEFT SHIFT is Present. Performed By: #### L 500.2500, L100.0100, L501.4020 #### [facility] [address] [place], [address] Lymphocytes/100 WBC (Bld) 15.7 % Low 19-41 [facility] Comment on above: Performed By: #### L 500.2500, L100.0100, L501.4020 #### [facility] [address] [place], [address] MCH (RBC) [Entitic mass] 31.3 pg Normal 27.0-32.0 [facility] Comment on above: Performed By: #### L 500.2500, L100.0100, L501.4020 #### [facility] [address] [place], [address] MCHC (RBC) [Mass/Vol] 32.2 g/dL Normal 32-36 [facility] Comment on above: Performed By: #### L 500.2500, L100.0100, L501.4020 #### [facility] [address] [place], [address] MCV (RBC) [Entitic vol] 97.1 fL Normal 81-99 [facility] Comment on above: Performed By: #### L 500.2500, L100.0100, L501.4020 #### [facility] [address] [place], [address] Monocytes/100 WBC (Bld) 7.3 % Normal 0-10 [facility] Comment on above: Performed By: #### L 500.2500, L100.0100, L501.4020 #### [facility] [address] [place], [address] Neutrophils/100 WBC (Bld) 74.4 % High 47-70 [facility] Comment on above: Performed By: #### L 500.2500, L100.0100, L501.4020 #### [facility] [address] [place], [address] Nucleated RBC (Bld) [#/Vol] 0 10*3/uL Normal 0-5 [facility] Comment on above: Performed By: #### L 500.2500, L100.0100, L501.4020 #### [facility] [address] [place], [address] Platelet mean volume (Bld) [Entitic vol] 10.7 fL Normal 6.2-12.0 [facility] Comment on above: Performed By: #### L 500.2500, L100.0100, L501.4020 #### [facility] [address] [place], [address] Platelets (Bld) [#/Vol] 133 10*3/uL Low 150-450 [facility] Comment on above: Performed By: #### L 500.2500, L100.0100, L501.4020 #### [facility] [address] [place], [address] RBC (Bld) [#/Vol] 4.09 10*6/uL Low 4.2-5.4 [facility] Comment on above: Performed By: #### L 500.2500, L100.0100, L501.4020 #### [facility] [address] [place], [address] RDW SD 45.9 fl High 35.1-43.9 [facility] Comment on above: Performed By: #### L 500.2500, L100.0100, L501.4020 #### [facility] [address] [place], [address] WBC (Bld) [#/Vol] 6.9 10*3/uL Normal 4.4-11.0 [facility] Comment on above: Performed By: #### L 500.2500, L100.0100, L501.4020 #### [facility] [address] [place], [address] Chest 1 View (Portable)on Chest 1 View (Portable) [facility] Imaging Services [address] [place] [address] Chest 1 View (Portable) MR#: [id number] Acct: [id number] Name: LISA UP Rep #: [id number] : 1945 F 78 From: Rosales Peralta MD PCP: Dr. Sylvia Lizama MD Status: REG ER Study: Chest 1 View (Portable) Date of Exam: 05/08/24 Exam# [id number] Ordering Dr: Evans Jones MD [id number] STUDY: X-RAY CHEST REASON FOR EXAM: Female, [...] Evans Jones MD; Dr. Sylvia Lizama MD [employer] Supervisor: Signed Normal [facility] Emergency Department Summary on 05-08-2024 Emergency Department Summary [facility] Medical Records Department [address] [place] [address] Emergency Department Summary 05/08/24 MR#: [id number] Acct: [id number] Name: LISA UP Rep #: [id number] : 1945 78 From: Evans Jones MD PCP: Dr. Sylvia Lizama MD Status:DEP ER Location: ED ADDENDUM by Dr. Evans Jones MD on 05/08/24 at 2208 Urinalysis showed 5-10 white cells. 1+ bacteria. No nitrates. No significant symptoms. That will not be treated. 05/08/242207 Cosigner Signature (if applicable): cc: Dr. Sylvia [...] symptoms: Yes Recent Illness/Hospitalizatio n: Yes PFSH PFS Medical History DVT (deep venous [...] vaccine, mRNA, Allergy Anaphylaxis Verified 03/24/24 09:30 [id number], erythromycin base Allergy Rash Verified 03/24/24 09:30 [...] No sig (more content not included)... Normal [facility] L501.4020on 05-08-2024 TROPONIN-I HS 7 pg/mL Normal 3.0-54.0 [facility] Comment on above: Order Comment: 'TROP ' Serial specimen #1, #2 or #3: 1 Result Comment: Katty gardner Note: New Test Units and Gender Specific Reference Ranges. For more information see Policy Stat Procedure Lejunior High Sensitivity Troponin (TNIH) and attachments. Performed By: #### L 500.2500, L100.0100, L501.4020 #### [facility] [address] [place], [address] Urinalysis, Completeon 05-08 BACTERIA 1+ /hpf Normal None Seen [facility] Comment on above: Order Comment: 'TROP ' Serial specimen #1, #2 or #3: 1 Performed By: #### L 500.2500, L100.0100, L501.4020 #### [facility] [address] [place], [address] WBC 5-10 SEEN Normal 0-5 [facility] Comment on above: Order Comment: 'TROP ' Serial specimen #1, #2 or #3: 1 Performed By: #### L 500.2500, L100.0100, L501.4020 #### [facility] [address] [place], [address] EPI,SQUAMOUS 0 SEEN Normal 5-10 [facility] Comment on above: Order Comment: 'TROP ' Serial specimen #1, #2 or #3: 1 Performed By: #### L 500.2500, L100.0100, L501.4020 #### [facility] [address] [place], [address] Mucus Ql (Urine sed) 0 SEEN Normal [facility] Comment on above: Order Comment: 'TROP ' Serial specimen #1, #2 or #3: 1 Performed By: #### L 500.2500, L100.0100, L501.4020 #### [facility] [address] [place], [address] RBC 0 SEEN Normal 0-5 [facility] Comment on above: Order Comment: 'TROP ' Serial specimen #1, #2 or #3: 1 Performed By: #### L 500.2500, L100.0100, L501.4020 #### [facility] [address] [place], [address] Flexible sigmoidoscopy study on 04-29-2024 [facility] Gastrointestinal Endoscopy Patient Name: Lisa Up Procedure [...] Crowder MD (Referring MD), Sylvia Lizama (Referring ) Medicines: Fentanyl 50 micrograms IV, Midazolam 4 [...] Professional --- (more content not included)... PROVATION [facility] Radiology Study observation (narrative) [place] [facility] US Extremity - lefton 2023 IMPRESSION: 2.0 x 0.5 x 1.5 cm area within the subcutaneous fat of the LEFT proximal forearm at the site of palpable abnormality which has similar echogenicity compared to the adjacent subcutaneous fat suggestive of a superficial lipoma. [employer] Supervisor: IVAN Transcribe Date/Time: Apr 15 2024 5:45P Dictated by : WALI CORBIN DO This examination was interpreted and the report reviewed and electronically signed by: WALI CORBIN DO on Apr 15 2024 5:50PM [facility] DIVISION OF RADIOLOGY * * *Final [...] subcutaneous fat suggestive of a superficial lipoma. [employer] Supervisor: IVAN Transcribe Date/Time: Apr 15 2024 5:45P Dictated by : WALI CORBIN DO This examination was interpreted and the report reviewed and electronically signed by: WALI CORBIN DO on Apr 15 2024 5:50PM EST [facility] Radiology Study observation (narrative) [place] Extremity - leftOrdered B y: [facility] Provider on 04-15-2024 [facility] Basic metabolic 2000 panelOr dered By: Clair Cam on 04-02-2024 Anion gap [Moles/Vol] 9 mmol/L 8 - 15 mmol/L [facility] Calcium [Mass/Vol] 9.9 mg/dL 8.5 - 10. 2 mg/dL [facility] Chloride [Moles/Vol] 104 mmol/L 98 - 10 7 mmol/L [facility] CO2 [Moles/Vol] 30 mmol/L 22 - 30 mmol/L [facility] Creatinine [Mass/Vol] 0.81 mg/dL 0.58 - 0.96 mg/dL [facility] GFR/1.73 sq M.predicted among non-blacks MDRD (S/P/Bld) [Vol rate/Area] 73 mL/min/{1.73_m2} - PINF [facility] Comment on above: Estimated Glomerular Filtration Rate [...] 116 mg/dL High 74 - 99 mg/dL [facility] Comment on above: The [place] Diabete s Association (ADA) provides guidance for [...] Standards of Medical Care in Diabetes 2016, [place] Diabetes Association. Diabetes Care. 2016.39(Suppl 1). Interpretation and review of laboratory results Abnormal [facility] Potassium [Moles/Vol] 4.1 mmol/L 3.7 - 5.1 mmol/L [facility] Sodium [Moles/Vol] 143 mmol/L 136 - 144 mmol/L [facility] Urea nitrogen [Mass/Vol] 13 mg/dL 7 - 21 mg/dL [facility] CBC W Auto Differential pane l (Bld)on 03-15-2024 Basophils (Bld) [#/Vol] NINF C [facility] Basophils/100 WBC (Bld) 0.1 % C [facility] Differential cell count method Nom (Bld) Auto [facility] Eosinophils (Bld) [#/Vol] 0.13 10*3/uL [facility] Eosinophils/100 WBC (Bld) 1.8 % [facility] Erythrocyte distribution width (RBC) [Ratio] 13.1 % 11.5 - 15.0 % [facility] Hematocrit (Bld) [Volume fraction] 39.7 % 36.0 - 46.0 % [facility] Hemoglobin (Bld) [Mass/Vol] 13.0 g/dL 11.5 - 15.5 g/dL [facility] Immature granulocytes (Bld) [#/Vol] 0.03 10*3/uL [facility] Immature granulocytes/100 WBC (Bld) 0.4 % [facility] Interpretation and review of laboratory results Abnormal [facility] Lymphocytes (Bld) [#/Vol] 1.01 10*3/uL [facility] Lymphocytes/100 WBC (Bld) 13.9 % [facility] MCH (RBC) [Entitic mass] 31.8 pg 26.0 - 34.0 pg [facility] MCHC (RBC) [Mass/Vol] 32.7 g/dL 30.5 - 36.0 g/dL [facility] MCV (RBC) [Entitic vol] 97.1 fL 80.0 - 100.0 fL [facility] Monocytes (Bld) [#/Vol] 0.48 10*3/uL [facility] Monocytes/100 WBC (Bld) 6.6 % C [facility] Neutrophils (Bld) [#/Vol] 5.63 10*3/uL [facility] Neutrophils/100 WBC (Bld) 77.2 % [facility] Nucleated RBC (Bld) [#/Vol] [facility] Nucleated RBC/100 WBC (Bld) [Ratio] 0.0 % /100 WBC [facility] Platelet mean volume (Bld) [Entitic vol] 10.5 fL 9.0 - 12.7 fL [facility] Platelets (Bld) [#/Vol] 136 10*3/uL Low [facility] Comment on above: Results checked and verified.No clot detected. RBC (Bld) [#/Vol] 4.09 10*6/uL 3.90 - 5.2 0 m/uL [facility] WBC (Bld) [#/Vol] 7.29 10*3/uL [facility] ESR Westergren method (Bld) [Velocity]on 03-15-2024 ESR (Bld) [Velocity] 12 mm/h [facility] Interpretation and review of laboratory results Normal [facility] STREP A MOLECULAR (POC)on Procedural Control Valid [facility] Strep A (POCT) Negative Negative [facility] CBC W Auto Differential pane l (Bld)on 03-04-2024 Basophils (Bld) [#/Vol] [facility] C [facility] Basophils/100 WBC (Bld) 0.4 % C [facility] Differential cell count method Nom (Bld) Auto [facility] Eosinophils (Bld) [#/Vol] 0.17 10*3/uL [facility] Eosinophils/100 WBC (Bld) 3.1 % [facility] Erythrocyte distribution width (RBC) [Ratio] 12.9 % 11.5 - 15.0 % [facility] Hematocrit (Bld) [Volume fraction] 40.7 % 36.0 - 46.0 % [facility] Hemoglobin (Bld) [Mass/Vol] 12.9 g/dL 11.5 - 15.5 g/dL [facility] Immature granulocytes (Bld) [#/Vol] [facility] Immature granulocytes/100 WBC (Bld) 0.2 % [facility] Interpretation and review of laboratory results Abnormal [facility] Lymphocytes (Bld) [#/Vol] 1.29 10*3/uL [facility] Lymphocytes/100 WBC (Bld) 23.5 % [facility] MCH (RBC) [Entitic mass] 31.5 pg 26.0 - 34.0 pg [facility] MCHC (RBC) [Mass/Vol] 31.7 g/dL 30.5 - 36.0 g/dL [facility] MCV (RBC) [Entitic vol] 99.3 fL 80.0 - 100.0 fL [facility] Monocytes (Bld) [#/Vol] 0.53 10*3/uL [facility] Monocytes/100 WBC (Bld) 9.7 % C [facility] Neutrophils (Bld) [#/Vol] 3.46 10*3/uL [facility] Neutrophils/100 WBC (Bld) 63.1 % [facility] Nucleated RBC (Bld) [#/Vol] NINF [facility] Nucleated RBC/100 WBC (Bld) [Ratio] 0.0 % /100 WBC [facility] Platelet mean volume (Bld) [Entitic vol] 10.6 fL 9.0 - 12.7 fL [facility] Platelets (Bld) [#/Vol] 136 10*3/uL Low [facility] RBC (Bld) [#/Vol] 4.10 10*6/uL 3.90 - 5.2 0 m/uL [facility] WBC (Bld) [#/Vol] 5.48 10*3/uL [facility] UA DIP, URINE (POC)on 2023 BILIRUBIN UA (POCT) Negative Negative [facility] CLARITY UA (POCT) Clear [facility] COLOR UA (POCT) Yellow [facility] GLUCOSE UA (POCT) Negative Negative mg/dL [facility] Hemoglobin Ql (U) Negative Negative [facility] KETONE UA (POCT) Trace Negative mg/dL [facility] LEUKOCYTES UA (POCT) Small Abnormal Negative [facility] NITRITE UA (POCT) Negative Negative [facility] PH UA (POCT) 6.0 4.5 - 8.0 [facility] Protein Ql (U) 30 mg/dL Abnormal Negative mg/dL [facility] SPECIFIC GRAVITY UA (POCT) 1.025 1.005 - 1.030 [facility] UROBILINOGEN UA (POCT) 0.2 E.U./dL Ana l E.U./dL [facility] ROXANNE SCREENING W TOMOon 07-08 [facility] CBC W Auto Differential pane l (Bld)on 06-13-2023 Basophils (Bld) [#/Vol] <0.11 k/uL C [facility] Basophils/100 WBC (Bld) 0.8 % C [facility] Differential cell count method Nom (Bld) Auto [facility] Eosinophils (Bld) [#/Vol] 0.11 10*3/uL <0.46 k/uL [facility] Eosinophils/100 WBC (Bld) 4.2 % [facility] Erythrocyte distribution width (RBC) [Ratio] 13.1 % 11.5 - 15.0 % [facility] Hematocrit (Bld) [Volume fraction] 36.9 % 36.0 - 46.0 % [facility] Hemoglobin (Bld) [Mass/Vol] 12.2 g/dL 11.5 - 15.5 g/dL [facility] Immature granulocytes (Bld) [#/Vol] 0.05 10*3/uL <0.10 k/uL [facility] Immature granulocytes/100 WBC (Bld) 1.9 % [facility] Lymphocytes (Bld) [#/Vol] 0.41 10*3/uL Low 1.00 - 4.00 k/uL [facility] Lymphocytes/100 WBC (Bld) 15.7 % [facility] MCH (RBC) [Entitic mass] 32.1 pg 26.0 - 34.0 pg [facility] MCHC (RBC) [Mass/Vol] 33.1 g/dL 30.5 - 36.0 g/dL [facility] MCV (RBC) [Entitic vol] 97.1 fL 80.0 - 100.0 fL [facility] Monocytes (Bld) [#/Vol] 0.32 10*3/uL <0.87 k/uL [facility] Monocytes/100 WBC (Bld) 12.3 % C [facility] Neutrophils (Bld) [#/Vol] 1.70 10*3/uL 1.45 - 7.50 k/uL [facility] Neutrophils/100 WBC (Bld) 65.1 % [facility] Nucleated RBC (Bld) [#/Vol] <0.01 k/uL [facility] Nucleated RBC/100 WBC (Bld) [Ratio] 0.0 /100 WBC [facility] Platelet mean volume (Bld) [Entitic vol] 9.6 fL 9.0 - 12.7 fL [facility] Platelets (Bld) [#/Vol] 102 10*3/uL Low 150 - 400 k/uL [facility] RBC (Bld) [#/Vol] 3.80 10*6/uL Low 3.90 - 5.2 0 m/uL [facility] WBC (Bld) [#/Vol] 2.61 10*3/uL Low 3.70 - 11.00 k/uL [facility] Comprehensive metabolic 2000 panelon 06-13-2023 Albumin [Mass/Vol] 3.8 g/dL Low 3.9 - 4.9 g/dL [facility] ALP [Catalytic activity/Vol] 68 U/L 34 - 123 U/L [facility] ALT [Catalytic activity/Vol] 6 U/L Low 7 - 38 U/L [facility] Anion gap [Moles/Vol] 10 mmol/L 9 - 18 mmol/L [facility] AST [Catalytic activity/Vol] 19 U/L 13 - 35 U/L [facility] Bilirubin [Mass/Vol] 0.3 mg/dL 0.2 - 1 .3 mg/dL [facility] Calcium [Mass/Vol] 9.3 mg/dL 8.5 - 10. 2 mg/dL [facility] Chloride [Moles/Vol] 106 mmol/L High 97 - 10 5 mmol/L [facility] CO2 [Moles/Vol] 25 mmol/L 22 - 30 mmol/L [facility] Creatinine [Mass/Vol] 0.81 mg/dL 0.58 - 0.96 mg/dL [facility] Estimated Glomerular Filtration Rate 74 mL/min/1.73m >=60 mL/min/1.73 m [facility] Glucose [Mass/Vol] 114 mg/dL High 74 - 99 mg/dL [facility] Potassium [Moles/Vol] 3.8 mmol/L 3.7 - 5.1 mmol/L [facility] Protein [Mass/Vol] 6.0 g/dL Low 6.3 - 8.0 g/dL [facility] Sodium [Moles/Vol] 141 mmol/L 136 - 144 mmol/L [facility] Urea nitrogen [Mass/Vol] 18 mg/dL 7 - 21 mg/dL [facility] - Chemistry and C hemistry - challengeon 06-06-2023 Creatinine [Mass/Vol] 0.79 mg/dL 0.58 - 0.96 mg/dL [facility] No Panel Informationon 06-06 Estimated Glomerular Filtration Rate 76 mL/min/1.73m >=60 mL/min/1.73 m [facility] XR Cervical spine AP and Lat eral and obliqueon 04-07-2023 IMPRESSION: No fracture or malalignment [employer] Supervisor: IVAN Transcribe Date/Time: Apr 07 2023 2:18P Dictated by : SUNIL GARCÍA MD This examination was interpreted and the report reviewed and electronically signed by: SUNIL GARCÍA MD on Apr 07 2023 2:23PM [facility] DIVISION OF RADIOLOGY * * *Final [...] soft tissue swelling. DIVISION OF RADIOLOGY Provider, [facility] - 04/07/2023 * * *Final Report* [...] swelling. IMPRESSION IMPRESSION: No fracture or malalignment [employer] Supervisor: [facility] Transcribe Date/Time: Apr 07 2023 2:18P Dictated by : SUNIL GARCÍA MD This examination was interpreted and the report reviewed and electronically signed by: SUNIL GARCÍA MD on Apr 07 2023 2:23PM EST [facility] XR Cervical spine AP and Lat eral and obliqueOrdered By: Ccf Provider on 04-07-2023 [facility] XR Cervical spine AP and Lat eral and obliqueon 04-03-2023 Radiology Study observation (narrative) [facility] XR SHOULDER GENERAL 3V OR MO RE AP/TRUE AP/OTHER LEFTon 03-24-2023 [facility] XR Shoulder - left 3 Viewson 03-24-2023 IMPRESSION: No acute bony abnormality. [employer] Supervisor: PSCB Transcribe Date/Time: Mar 24 2023 2:10P Dictated by : YAMIL TAM MD This examination was interpreted and the report reviewed and electronically signed by: YAMIL TAM MD on Mar 24 2023 2:11PM EST DIVISION OF RADIOLOGY * * *Final [...] spaces are preserved. DIVISION OF RADIOLOGY Provider, Keven [facility] - 03/24/2023 * * *Final Report* * [...] preserved. IMPRESSION IMPRESSION: No acute bony abnormality. [employer] Supervisor: PSCB Transcribe Date/Time: Mar 24 2023 2:10P Dictated by : YAMIL TAM MD This examination was interpreted and the report reviewed and electronically signed by: YAMIL TAM MD on Mar 24 2023 2:11PM EST [facility] Radiology Study observation (narrative) [facility] XR Shoulder - left 3 ViewsOr dered By: Ccf Provider on 03-24-2023 [facility] CBC W Auto Differential pane l (Bld)on 12-30-2022 Basophils (Bld) [#/Vol] <0.11 k/uL [facility] Basophils/100 WBC (Bld) 0.3 % C [facility] Differential cell count method Nom (Bld) Auto [facility] Eosinophils (Bld) [#/Vol] <0.46 k/uL [facility] Eosinophils/100 WBC (Bld) 0.0 % [facility] Erythrocyte distribution width (RBC) [Ratio] 13.4 % 11.5 - 15.0 % [facility] Hematocrit (Bld) [Volume fraction] 37.5 % 36.0 - 46.0 % [facility] Hemoglobin (Bld) [Mass/Vol] 12.3 g/dL 11.5 - 15.5 g/dL [facility] Immature granulocytes (Bld) [#/Vol] 0.03 10*3/uL <0.10 k/uL [facility] Immature granulocytes/100 WBC (Bld) 0.8 % [facility] Lymphocytes (Bld) [#/Vol] 0.99 10*3/uL Low 1.00 - 4.00 k/uL [facility] Lymphocytes/100 WBC (Bld) 27.4 % [facility] MCH (RBC) [Entitic mass] 31.9 pg 26.0 - 34.0 pg [facility] MCHC (RBC) [Mass/Vol] 32.8 g/dL 30.5 - 36.0 g/dL [facility] MCV (RBC) [Entitic vol] 97.4 fL 80.0 - 100.0 fL [facility] Monocytes (Bld) [#/Vol] 0.53 10*3/uL <0.87 k/uL [facility] Monocytes/100 WBC (Bld) 14.7 % [facility] Neutrophils (Bld) [#/Vol] 2.05 10*3/uL 1.45 - 7.50 k/uL [facility] Neutrophils/100 WBC (Bld) 56.8 % [facility] Nucleated RBC (Bld) [#/Vol] <0.01 k/uL [facility] Nucleated RBC/100 WBC (Bld) [Ratio] 0.0 /100 WBC [facility] Platelet mean volume (Bld) [Entitic vol] 9.8 fL 9.0 - 12.7 fL [facility] Platelets (Bld) [#/Vol] 141 10*3/uL Low 150 - 400 k/uL [facility] RBC (Bld) [#/Vol] 3.85 10*6/uL Low 3.90 - 5.2 0 m/uL [facility] WBC (Bld) [#/Vol] 3.61 10*3/uL Low 3.70 - 11.00 k/uL [facility] Comprehensive metabolic 2000 panelon 12-30-2022 Albumin [Mass/Vol] 4.0 g/dL 3.9 - 4.9 g/dL [facility] ALP [Catalytic activity/Vol] 82 U/L 34 - 123 U/L [facility] ALT [Catalytic activity/Vol] 5 U/L Low 7 - 38 U/L [facility] Anion gap [Moles/Vol] 8 mmol/L Low 9 - 18 mmol/L [facility] AST [Catalytic activity/Vol] 18 U/L 13 - 35 U/L [facility] Bilirubin [Mass/Vol] 0.3 mg/dL 0.2 - 1 .3 mg/dL [facility] Calcium [Mass/Vol] 9.6 mg/dL 8.5 - 10. 2 mg/dL [facility] Chloride [Moles/Vol] 104 mmol/L 97 - 10 5 mmol/L [facility] CO2 [Moles/Vol] 28 mmol/L 22 - 30 mmol/L [facility] Creatinine [Mass/Vol] 0.69 mg/dL 0.58 - 0.96 mg/dL [facility] Estimated Glomerular Filtration Rate 88 mL/min/1.73m >=60 mL/min/1.73 m [facility] Glucose [Mass/Vol] 101 mg/dL High 74 - 99 mg/dL [facility] Potassium [Moles/Vol] 4.2 mmol/L 3.7 - 5.1 mmol/L [facility] Protein [Mass/Vol] 6.3 g/dL 6.3 - 8.0 g/dL [facility] Sodium [Moles/Vol] 140 mmol/L 136 - 144 mmol/L [facility] Urea nitrogen [Mass/Vol] 15 mg/dL 7 - 21 mg/dL [facility] HEP B SURF AG SCRNon 023 HBV surface Ag Ql (S) Negative Negative [facility] No Panel Informationon 12-09 [facility] T4/FTI/T4Uon 11-27-2022 FTI 9.3 ug/dL 5.3 - 10.8 ug/dL [facility] T4 [Mass/Vol] 10.7 ug/dL High 5.5 - 10.2 ug/dL [facility] T4 uptake [Mass/Vol] 1.15 0.91 - 1.19 [facility] TSH BLDon 11-27-2022 TSH Qn 1.390 m[IU]/L 0.270 - 4.200 mIU/L [facility] CBC W Auto Differential pane l (Bld)on 11-25-2022 Basophils (Bld) [#/Vol] <0.11 k/uL [facility] Basophils/100 WBC (Bld) 0.5 % C [facility] Differential cell count method Nom (Bld) Auto [facility] Eosinophils (Bld) [#/Vol] <0.46 k/uL [facility] Eosinophils/100 WBC (Bld) 0.0 % [facility] Erythrocyte distribution width (RBC) [Ratio] 14.4 % 11.5 - 15.0 % [facility] Hematocrit (Bld) [Volume fraction] 36.7 % 36.0 - 46.0 % [facility] Hemoglobin (Bld) [Mass/Vol] 12.2 g/dL 11.5 - 15.5 g/dL [facility] Immature granulocytes (Bld) [#/Vol] <0.10 k/uL [facility] Immature granulocytes/100 WBC (Bld) 0.3 % [facility] Lymphocytes (Bld) [#/Vol] 0.93 10*3/uL Low 1.00 - 4.00 k/uL [facility] Lymphocytes/100 WBC (Bld) 25.1 % [facility] MCH (RBC) [Entitic mass] 32.3 pg 26.0 - 34.0 pg [facility] MCHC (RBC) [Mass/Vol] 33.2 g/dL 30.5 - 36.0 g/dL [facility] MCV (RBC) [Entitic vol] 97.1 fL 80.0 - 100.0 fL [facility] Monocytes (Bld) [#/Vol] 0.59 10*3/uL <0.87 k/uL [facility] Monocytes/100 WBC (Bld) 15.9 % [facility] Neutrophils (Bld) [#/Vol] 2.16 10*3/uL 1.45 - 7.50 k/uL [facility] Neutrophils/100 WBC (Bld) 58.2 % [facility] Nucleated RBC (Bld) [#/Vol] <0.01 k/uL [facility] Nucleated RBC/100 WBC (Bld) [Ratio] 0.0 /100 WBC [facility] Platelet mean volume (Bld) [Entitic vol] 9.8 fL 9.0 - 12.7 fL [facility] Platelets (Bld) [#/Vol] 100 10*3/uL Low 150 - 400 k/uL [facility] RBC (Bld) [#/Vol] 3.78 10*6/uL Low 3.90 - 5.2 0 m/uL [facility] WBC (Bld) [#/Vol] 3.71 10*3/uL 3.70 - 11.00 k/uL [facility] Comprehensive metabolic 2000 panelon 11-25-2022 Albumin [Mass/Vol] 3.8 g/dL Low 3.9 - 4.9 g/dL [facility] ALP [Catalytic activity/Vol] 73 U/L 34 - 123 U/L [facility] ALT [Catalytic activity/Vol] 5 U/L Low 7 - 38 U/L [facility] Anion gap [Moles/Vol] 8 mmol/L Low 9 - 18 mmol/L [facility] AST [Catalytic activity/Vol] 20 U/L 13 - 35 U/L [facility] Bilirubin [Mass/Vol] 0.3 mg/dL 0.2 - 1 .3 mg/dL [facility] Calcium [Mass/Vol] 9.8 mg/dL 8.5 - 10. 2 mg/dL [facility] Chloride [Moles/Vol] 103 mmol/L 97 - 10 5 mmol/L [facility] CO2 [Moles/Vol] 27 mmol/L 22 - 30 mmol/L [facility] Creatinine [Mass/Vol] 0.76 mg/dL 0.58 - 0.96 mg/dL [facility] Estimated Glomerular Filtration Rate 80 mL/min/1.73m >=60 mL/min/1.73 m [facility] Glucose [Mass/Vol] 99 mg/dL 74 - 99 mg/dL [facility] Potassium [Moles/Vol] 4.6 mmol/L 3.7 - 5.1 mmol/L [facility] Protein [Mass/Vol] 6.0 g/dL Low 6.3 - 8.0 g/dL [facility] Sodium [Moles/Vol] 138 mmol/L 136 - 144 mmol/L [facility] Urea nitrogen [Mass/Vol] 15 mg/dL 7 - 21 mg/dL [facility] LD LACTATE DEHYDROon 023 LDH [Catalytic activity/Vol] 173 U/L 135 - 214 U/L [facility] URIC ACID BLOODon 11-25-2022 Urate [Mass/Vol] 4.1 mg/dL 2.5 - 6.6 mg/dL [facility] CBC W Auto Differential pane l (Bld)on 10-28-2022 Basophils (Bld) [#/Vol] <0.11 k/uL [facility] Basophils/100 WBC (Bld) 0.2 % [facility] method Nom (Bld) Auto [facility] Eosinophils (Bld) [#/Vol] 0.13 10*3/uL <0.46 k/uL [facility] Eosinophils/100 WBC (Bld) 3.2 % [facility] Erythrocyte distribution width (RBC) [Ratio] 14.6 % 11.5 - 15.0 % [facility] Hematocrit (Bld) [Volume fraction] 36.1 % 36.0 - 46.0 % [facility] Hemoglobin (Bld) [Mass/Vol] 11.7 g/dL 11.5 - 15.5 g/dL [facility] Immature granulocytes (Bld) [#/Vol] <0.10 k/uL [facility] Immature granulocytes/100 WBC (Bld) 0.5 % [facility] Lymphocytes (Bld) [#/Vol] 0.66 10*3/uL Low 1.00 - 4.00 k/uL [facility] Lymphocytes/100 WBC (Bld) 16.1 % [facility] MCH (RBC) [Entitic mass] 31.3 pg 26.0 - 34.0 pg [facility] MCHC (RBC) [Mass/Vol] 32.4 g/dL 30.5 - 36.0 g/dL [facility] MCV (RBC) [Entitic vol] 96.5 fL 80.0 - 100.0 fL [facility] Monocytes (Bld) [#/Vol] 0.43 10*3/uL <0.87 k/uL [facility] Monocytes/100 WBC (Bld) 10.5 % [facility] Neutrophils (Bld) [#/Vol] 2.84 10*3/uL 1.45 - 7.50 k/uL [facility] Neutrophils/100 WBC (Bld) 69.5 % [facility] Nucleated RBC (Bld) [#/Vol] <0.01 k/uL [facility] Nucleated RBC/100 WBC (Bld) [Ratio] 0.0 /100 WBC [facility] Platelet mean volume (Bld) [Entitic vol] 9.9 fL 9.0 - 12.7 fL [facility] Platelets (Bld) [#/Vol] 111 10*3/uL Low 150 - 400 k/uL [facility] RBC (Bld) [#/Vol] 3.74 10*6/uL Low 3.90 - 5.2 0 m/uL [facility] WBC (Bld) [#/Vol] 4.09 10*3/uL 3.70 - 11.00 k/uL [facility] Comprehensive metabolic 2000 panelon 10-28-2022 Albumin [Mass/Vol] 3.7 g/dL Low 3.9 - 4.9 g/dL [facility] ALP [Catalytic activity/Vol] 67 U/L 34 - 123 U/L [facility] ALT [Catalytic activity/Vol] Low 7 - 38 U/L [facility] Anion gap [Moles/Vol] 6 mmol/L Low 9 - 18 mmol/L [facility] AST [Catalytic activity/Vol] 20 U/L 13 - 35 U/L [facility] Bilirubin [Mass/Vol] 0.2 mg/dL 0.2 - 1 .3 mg/dL [facility] Calcium [Mass/Vol] 9.1 mg/dL 8.5 - 10. 2 mg/dL [facility] Chloride [Moles/Vol] 105 mmol/L 97 - 10 5 mmol/L [facility] CO2 [Moles/Vol] 27 mmol/L 22 - 30 mmol/L [facility] Creatinine [Mass/Vol] 0.56 mg/dL Low 0.58 - 0.96 mg/dL [facility] Estimated Glomerular Filtration Rate 94 mL/min/1.73m >=60 mL/min/1.73 m [facility] Glucose [Mass/Vol] 95 mg/dL 74 - 99 mg/dL [facility] Potassium [Moles/Vol] 4.0 mmol/L 3.7 - 5.1 mmol/L [facility] Protein [Mass/Vol] 5.6 g/dL Low 6.3 - 8.0 g/dL [facility] Sodium [Moles/Vol] 138 mmol/L 136 - 144 mmol/L [facility] Urea nitrogen [Mass/Vol] 12 mg/dL 7 - 21 mg/dL [facility] LD LACTATE DEHYDROon 023 LDH [Catalytic activity/Vol] 166 U/L 135 - 214 U/L [facility] URIC ACID BLOODon 10-28-2022 Urate [Mass/Vol] 3.4 mg/dL 2.5 - 6.6 mg/dL [facility] CBC W Auto Differential pane l (Bld)on 09-24-2022 Basophils (Bld) [#/Vol] <0.11 k/uL C [facility] Basophils/100 WBC (Bld) 0.3 % C [facility] Differential cell count method Nom (Bld) Auto [facility] Eosinophils (Bld) [#/Vol] 0.23 10*3/uL <0.46 k/uL [facility] Eosinophils/100 WBC (Bld) 7.0 % [facility] Erythrocyte distribution width (RBC) [Ratio] 14.0 % 11.5 - 15.0 % [facility] Hematocrit (Bld) [Volume fraction] 37.5 % 36.0 - 46.0 % [facility] Hemoglobin (Bld) [Mass/Vol] 12.5 g/dL 11.5 - 15.5 g/dL [facility] Immature granulocytes (Bld) [#/Vol] <0.10 k/uL [facility] Immature granulocytes/100 WBC (Bld) 0.3 % [facility] Lymphocytes (Bld) [#/Vol] 0.43 10*3/uL Low 1.00 - 4.00 k/uL [facility] Lymphocytes/100 WBC (Bld) 13.1 % [facility] MCH (RBC) [Entitic mass] 31.6 pg 26.0 - 34.0 pg [facility] MCHC (RBC) [Mass/Vol] 33.3 g/dL 30.5 - 36.0 g/dL [facility] MCV (RBC) [Entitic vol] 94.9 fL 80.0 - 100.0 fL [facility] Monocytes (Bld) [#/Vol] 0.42 10*3/uL <0.87 k/uL [facility] Monocytes/100 WBC (Bld) 12.8 % [facility] Neutrophils (Bld) [#/Vol] 2.19 10*3/uL 1.45 - 7.50 k/uL [facility] Neutrophils/100 WBC (Bld) 66.5 % [facility] Nucleated RBC (Bld) [#/Vol] <0.01 k/uL [facility] Nucleated RBC/100 WBC (Bld) [Ratio] 0.0 /100 WBC [facility] Platelet mean volume (Bld) [Entitic vol] 9.6 fL 9.0 - 12.7 fL [facility] Platelets (Bld) [#/Vol] 109 10*3/uL Low 150 - 400 k/uL [facility] RBC (Bld) [#/Vol] 3.95 10*6/uL 3.90 - 5.2 0 m/uL [facility] WBC (Bld) [#/Vol] 3.29 10*3/uL Low 3.70 - 11.00 k/uL [facility] Comprehensive metabolic 2000 panelon 09-24-2022 Albumin [Mass/Vol] 3.7 g/dL Low 3.9 - 4.9 g/dL [facility] ALP [Catalytic activity/Vol] 73 U/L 34 - 123 U/L [facility] ALT [Catalytic activity/Vol] 6 U/L Low 7 - 38 U/L [facility] Anion gap [Moles/Vol] 8 mmol/L Low 9 - 18 mmol/L [facility] AST [Catalytic activity/Vol] 21 U/L 13 - 35 U/L [facility] Bilirubin [Mass/Vol] 0.3 mg/dL 0.2 - 1 .3 mg/dL [facility] Calcium [Mass/Vol] 9.7 mg/dL 8.5 - 10. 2 mg/dL [facility] Chloride [Moles/Vol] 104 mmol/L 97 - 10 5 mmol/L [facility] CO2 [Moles/Vol] 27 mmol/L 22 - 30 mmol/L [facility] Creatinine [Mass/Vol] 0.63 mg/dL 0.58 - 0.96 mg/dL [facility] Estimated Glomerular Filtration Rate 91 mL/min/1.73m >=60 mL/min/1.73 m [facility] Glucose [Mass/Vol] 99 mg/dL 74 - 99 mg/dL [facility] Potassium [Moles/Vol] 4.0 mmol/L 3.7 - 5.1 mmol/L [facility] Protein [Mass/Vol] 5.7 g/dL Low 6.3 - 8.0 g/dL [facility] Sodium [Moles/Vol] 139 mmol/L 136 - 144 mmol/L [facility] Urea nitrogen [Mass/Vol] 11 mg/dL 7 - 21 mg/dL [facility] Laboratory - Chemistry and C hemistry - challengeon 09-24-2022 LDH [Catalytic activity/Vol] 184 U/L 135 - 214 U/L [facility] Urate [Mass/Vol] 4.2 mg/dL 2.5 - 6.6 mg/dL [facility] No Panel Informationon 09-24 [facility] Absolute lymphocyte counton 08-04-2022 Lymphocytes Auto (Unsp spec) [#/Vol] 0.57 10*3/uL 0.83-4.51 [facility] Work Phone: Basophil percentageon 2021 Basophils/100 WBC (Bld) 0.3 % 0-1 [facility] Work Phone: Bilirubin [Mass/Vol] 0.20 mg/dL 0.20-1.00 [facility] Work Phone: Comment on above: For patients on eltr ombopag therapy, use of Dimension Lejunior TBIL is not recommended. Chloride [Moles/Vol] 110 mmol/L 98-107 [facility]: Eosinophils/100 WBC (Bld) 6.2 % 0-5 [facility] Work Phone: Glucose [Mass/Vol] 111 mg/dL 74-106 [facility] Work Phone: Comment on above: Fasting Glucose resu lt from 100 to 125 mg/dL suggests IMPAIRED HOMEOSTASIS per A.D.A. criteria. Neutrophils (Bld) [#/Vol] 2.0 10*3/uL 2.0-7.7 [facility] Work Phone: [phone] Neutrophils/100 WBC (Bld) 62.9 % 47-70 [facility] Work Phone: Potassium [Moles/Vol] 3.4 mmol/L 3.5-5.1 [facility] Work Phone: Protein [Mass/Vol] 5.2 g/dL 6.4-8.2 [facility] Work Phone: Sodium [Moles/Vol] 143 mmol/L 136-145 [facility] Work Phone: WBC (Bld) [#/Vol] 3.2 10*3/uL 4.4-11.0 [facility] Work Phone: [phone] Blood erythrocytes count (nu mber/volume)on 08-04-2022 RBC (Bld) [#/Vol] 3.38 10*6/uL 4.2-5.4 [facility] Work Phone: Blood hemoglobin measurement (mass/volume)on 08-04-2022 Hemoglobin (Bld) [Mass/Vol] 10.4 g/dL 12.0-15.0 [facility] Work Phone: Blood lymphocytes/100 leukoc yteson 08-04-2022 Lymphocytes/100 WBC (Bld) 17.6 % 19-41 [facility] Work Phone: [phone] Blood monocytes/100 leukocyt eson 08-04-2022 Monocytes/100 WBC (Bld) 12.4 % 0-10 [facility] Work Phone: Blood platelet adequacy dete ction by light microscopyon 08-04-2022 Platelets LM Ql (Bld) ADEQUATE ADEQ [facility] Work Phone: Blood platelet mean volumeon 08-04-2022 Platelet mean volume (Bld) [Entitic vol] 9.8 fL 6.2-12.0 [facility] Work Phone: Determination of erythrocyte mean corpuscular volume (MCV)on 08-04-2022 MCV (RBC) [Entitic vol] 95.6 fL 81-99 [facility] Work Phone: Hematocrit Auto (Bld) [Volum e fraction]on 08-04-2022 Hematocrit (Bld) [Volume fraction] 32.3 % 37-47 [facility] Work Phone: Laboratory - Chemistry and C hemistry - challengeon 08-04-2022 ALP [Catalytic activity/Vol] 49 U/L 45-117 [facility] Work Phone: ALT [Catalytic activity/Vol] 10 U/L 13-56 [facility] Work Phone: CO2 [Moles/Vol] 26.0 mmol/L 21.0-32.0 [facility] Work Phone: Globulin (S) [Mass/Vol] 2.9 g/dL 2.2-4.2 [facility] Work Phone: Urea nitrogen/Creatinine [Mass ratio] 25.9 mg/mg 10-20 [facility] Work Phone: Laboratory - Hematology and Cell countson 08-04-2022 Erythrocyte distribution width (RBC) [Entitic vol] 49.6 fL 35.1-43.9 [facility] Work Phone: Erythrocyte distribution width (RBC) [Ratio] 14.1 % 11.6-14.6 [facility] Work Phone: Immature granulocytes/100 WBC (Bld) 0.600 % 0.0-0.9 [facility] Work Phone: Comment on above: IG% - Immature Granu locytes (promyelocytes, myelocytes and metamyelocytes) > 1% indicates that a LEFT SHIFT is Present. MCH (RBC) [Entitic mass] 30.8 pg 27.0-32.0 [facility] Work Phone: Nucleated RBC/100 WBC (Bld) [Ratio] 0 % 0-5 [facility] Work Phone: MCHC Auto (RBC) [Mass/Vol]on 08-04-2022 MCHC (RBC) [Mass/Vol] 32.2 g/dL 32-36 [facility] Work Phone: No Panel Informationon 08-04 Estimated Creatinine Clearance Calc 36.67 ml/min [facility] Work Phone: Estimated GFR (MDRD) Amer 129 mL/min >60 [facility] Work Phone: Comment on above: GFR Calc Estimated GFR (MDRD) Non-Af Amer 107 mL/min >60 [facility] Work Phone: Comment on above: Non- GFR Calc Platelets bldon 08-04-2022 Platelets (Bld) [#/Vol] 130 10*3/uL 150-450 [facility] Work Phone: RBC morphologyon 08-04-2022 RBC morphology finding Nom (Bld) NORM C+C NORMAL NORM C&C [facility] Work Phone: Review by pathologiston 07-23 Pathologist review Sulaiman (Unsp spec) [Interp] May foll [facility] Work Phone: Serum or plasma albumin cirilo urement (mass/volume)on 08-04-2022 Albumin [Mass/Vol] 2.3 g/dL 3.2-5.0 [facility] Work Phone: Serum or plasma albumin/glob ulin mass ratioon 08-04-2022 Albumin/Globulin [Mass ratio] 0.8 {ratio} 0.9-2.4 [facility] Work Phone: Serum or plasma calcium cirilo urement (mass/volume)on 08-04-2022 Calcium [Mass/Vol] 8.6 mg/dL 8.5-10.1 [facility] Work Phone: Serum or plasma creatinine m easurement (mass/volume)on 08-04-2022 Creatinine [Mass/Vol] 0.58 mg/dL 0.55-1.02 [facility] Work Phone: Comment on above: The validity of the calculated GFR & GFRAA in patients over 70 years has not been determined. Clinical correlation is essential. Serum or plasma urea nitroge n measurement (mass/volume)on 08-04-2022 Urea nitrogen [Mass/Vol] 15 mg/dL 7-18 [facility] Work Phone: Thin prep Papanicolaou smear with manual screeningon 08-04-2022 Thin prep Papanicolaou smear with manual screening 17 U/L 15-37 [facility] Work Phone: Thin prep Papanicolaou smear with manual screening 7 5-15 [facility] Work Phone: Blood manual differential co mment interpretation (narrative result)on 08-03-2022 Manual differential comment Sulaiman (Bld) [Interp] SCANNED [facility] Work Phone: Comment on above: LYMPHOPENIA NOTED Sky 08-01-2022 MELANIE Telephone (CHRCEU) LISA UP ([id number]) 1945 F Date Time Provider Department 08/01/22 CELESTE CLAUDIO During your visit today, we recorded the following information about you: Chinyere Shea RN 08/05/2022 2:10 PM Signed Call to patient, she is ok to travel to [place] or [facility] to get [place]. She is aware that someone else will be calling to set this up. Sravanthi Shea RN Allergies As of Date: 08/01/2022 Noted Allergy Reaction ADHESIVE 06/10/2022 2 - Rash Comments: Blisters and dermatitis from op site dressing and tape COVID-19 VACCINE, MRNA, [id number]*06/29/2021 10 - Anaphylaxis ERYTHROMYCIN 06/08/2013 2 - Rash 8 - GI Upset Comments: Urticarial rash, seen in [place] [facility] LATEX 02/13/2010 7 - Swelling LISINOPRIL 12/25/2017 7 - Swelling NAFCILLIN 10/11/2018 9 - Itching Comments: 06/29/21 negative penicillin skin testing. Passed oral amoxicillin challenge. NORVASC (AMLODIPINE BESYLATE) 02/19/2018 7 - Swelling WASPS 07/29/2017 1 - Mental Status Change 2 - Rash Date Reviewed: 07/23/2022 Reviewed by: Marquise aLw Ma - Fully Assessed Reason for Visit: [...] once daily. Meds Comments as of 05/28/2021: [facility] [id number] [facility] Multi-vitamin Mail service [facility] 04/08/18 Patient stopped [...] [M54.6, G*12/28/2015 (more content not included)... Normal [facility] - Chemistry and C hemistry - challengeon 07-30-2022 Lipase [Catalytic activity/Vol] 124 U/L 73-393 [facility] Work Phone: No Panel Informationon 07-30 Troponin I High Sensitivity 6 pg/mL 3.0-54.0 [facility] Work Phone: Comment on above: Please Note: New Sophie t Units and Gender Specific Reference Ranges. For more information see Policy Stat Procedure Lejunior High Sensitivity Troponin (TNIH) and attachments. CBC W Auto Differential pane l (Bld)on 07-23-2022 Basophils (Bld) [#/Vol] <0.11 k/uL [facility] Basophils/100 WBC (Bld) 0.6 % [facility] Differential cell count method Nom (Bld) Auto [facility] Eosinophils (Bld) [#/Vol] 0.30 10*3/uL <0.46 k/uL [facility] Eosinophils/100 WBC (Bld) 9.1 % [facility] Erythrocyte distribution width (RBC) [Ratio] 13.9 % 11.5 - 15.0 % [facility] Hematocrit (Bld) [Volume fraction] 38.3 % 36.0 - 46.0 % [facility] Hemoglobin (Bld) [Mass/Vol] 12.6 g/dL 11.5 - 15.5 g/dL [facility] Immature granulocytes (Bld) [#/Vol] <0.10 k/uL [facility] Immature granulocytes/100 WBC (Bld) 0.6 % [facility] Lymphocytes (Bld) [#/Vol] 0.37 10*3/uL Low 1.00 - 4.00 k/uL [facility] Lymphocytes/100 WBC (Bld) 11.2 % [facility] MCH (RBC) [Entitic mass] 30.7 pg 26.0 - 34.0 pg [facility] MCHC (RBC) [Mass/Vol] 32.9 g/dL 30.5 - 36.0 g/dL [facility] MCV (RBC) [Entitic vol] 93.4 fL 80.0 - 100.0 fL [facility] Monocytes (Bld) [#/Vol] 0.23 10*3/uL <0.87 k/uL [facility] Monocytes/100 WBC (Bld) 7.0 % [facility] Neutrophils (Bld) [#/Vol] 2.35 10*3/uL 1.45 - 7.50 k/uL [facility] Neutrophils/100 WBC (Bld) 71.5 % [facility] Nucleated RBC (Bld) [#/Vol] <0.01 k/uL [facility] Nucleated RBC/100 WBC (Bld) [Ratio] 0.0 /100 WBC [facility] Platelet mean volume (Bld) [Entitic vol] 9.5 fL 9.0 - 12.7 fL [facility] Platelets (Bld) [#/Vol] 94 10*3/uL Low 150 - 400 k/uL [facility] RBC (Bld) [#/Vol] 4.10 10*6/uL 3.90 - 5.2 0 m/uL [facility] WBC (Bld) [#/Vol] 3.29 10*3/uL Low 3.70 - 11.00 k/uL [facility] Comprehensive metabolic 2000 panelon 07-23-2022 Albumin [Mass/Vol] 3.8 g/dL Low 3.9 - 4.9 g/dL [facility] ALP [Catalytic activity/Vol] 73 U/L 34 - 123 U/L [facility] ALT [Catalytic activity/Vol] Low 7 - 38 U/L [facility] Anion gap [Moles/Vol] 10 mmol/L 9 - 18 mmol/L [facility] AST [Catalytic activity/Vol] 19 U/L 13 - 35 U/L [facility] Bilirubin [Mass/Vol] 0.4 mg/dL 0.2 - 1 .3 mg/dL [facility] Calcium [Mass/Vol] 9.3 mg/dL 8.5 - 10. 2 mg/dL [facility] Chloride [Moles/Vol] 104 mmol/L 97 - 10 5 mmol/L [facility] CO2 [Moles/Vol] 25 mmol/L 22 - 30 mmol/L [facility] Creatinine [Mass/Vol] 0.69 mg/dL 0.58 - 0.96 mg/dL [facility] Estimated Glomerular Filtration Rate 89 mL/min/1.73m >=60 mL/min/1.73 m [facility] Glucose [Mass/Vol] 121 mg/dL High 74 - 99 mg/dL [facility] Potassium [Moles/Vol] 3.9 mmol/L 3.7 - 5.1 mmol/L [facility] Protein [Mass/Vol] 6.1 g/dL Low 6.3 - 8.0 g/dL [facility] Sodium [Moles/Vol] 139 mmol/L 136 - 144 mmol/L [facility] Urea nitrogen [Mass/Vol] 11 mg/dL 7 - 21 mg/dL [facility] LD LACTATE DEHYDROon 022 LDH [Catalytic activity/Vol] 178 U/L 135 - 214 U/L [facility] URIC ACID BLOODon 07-23-2022 Urate [Mass/Vol] 4.1 mg/dL 2.5 - 6.6 mg/dL [facility] ALLIED HEALTHon 06-05-2022 ALLIED HEALTH HNO ID: [id number] Author: FAITH Helms Service: Radiology Author Type: [...] FAITH Helms June 05, 2022 2:15 PM [facility] ANES POSTPROC EVALon 022 ANES POSTPROC EVAL HNO ID: [id number] Author: Diony Lopez MD Service: ? Author Type: Anesthesiologist Type: Anesthesia Postprocedure Evaluation Filed: 06/05/2022 4:19 PM Note Text: POST ANESTHESIA EVALUATION NOTE : 1945 Procedure Summary Date: 06/05/22 Room / Location: CO OR / CO OR Anesthesia Start: 1242 Anesthesia Stop: 134 Procedure: INSERTION CATHETER PORT-A-CATH WITH C-ARM (Right) [...] June 05, 2022 TIME: 4:18 PM CSN: [id number] [facility] ANES PRE-OPon 06-05-2022 ANES PRE-OP HNO ID: [id number] Author: Diony Lopez MD Service: ? Author Type: Anesthesiologist Type: Anesthesia Preprocedure Evaluation Filed: 06/05/2022 11:59 AM Note Text: ANESTHESIOLOGY DAY OF SURGERY NOTE : 1945 Procedure Information Date/Time: 06/05/22 1305 Procedure: INSERTION CATHETER PORT-A-CATH WITH C-ARM (Right) Location: CO OR / CO OR Surgeons: Zeny Crowder MD Estimated body [...] and consent discussed: yes. Patient / Responsible Republican agrees to proceed: yes Patient / Surrogate [...] June 05, 2022 TIME: 11:58 AM CSN: [id number] Normal [facility] HISTORY PHYSICALon HISTORY PHYSICAL HNO ID: [id number] Author: Zeny Crowder MD Service: General Surgery [...] for this visit. ALLERGIES: Covid-19 Vaccine, Mrna, [id number], Lnp-S (Moderna); Erythromycin; Latex; Lisinopril; Nafcillin; Norvasc [Amlodipine Besylate]; and Wasps PERSONAL HISTORY: SOCIAL HISTORY Social History Tobacco Use Smoking status: Never Smokeless tobacco: Never Vaping Use Vaping Use: Never used Substance Use Topics Alcohol use: No Drug use: No FAMILY HISTORY: FAMILY HISTORY FAMILY HISTORY Problem Relation Age of Onset Heart Mother Cancer Mother lung Heart Father other (Other) Father Heart Brother ND, aneurysm Migraines Daughter Macular Degen Maternal Aunt REVIEW OF SYMPTOMS: The review of systems data was entered by the nurse and reviewed by wi Nursing Notes: Viv Lo RN 05/28/2022 3:01 PM Signed REVIEW OF SYSTEMS: General: The patient NOTES fatigue, denies weight loss, denies weight gain, denies feeling hot, and denies feelings of co (more content not included)... Normal [facility] OPERATIVE NOon 06-05-2022 OPERATIVE NO HNO ID: [id number] Author: Zeny Crowder MD Service: General Surgery Author Type: Physician Type: Operative Report Filed: 06/05/2022 1:44 PM Note Text: OPERATIVE/PROCEDURE REPORT LOG ID: [id number] SURGERY/PROCEDURE DATE: 06/05/2022 INCISION/PROCEDURE START TIME: 1:02 PM INCISION CLOSE/PROCEDURE END TIME: 1:34 PM SURGEON(S)/PROCEDURALI ST(S) AND PIN MACHINE OPERATOR(S): Surgeon(s) and Role: * Zeny Crowder MD - Primary Physician Anthropology Department Chair: Kori Beyer PA-C SURGERY/PROCEDURE(S): Placement of a [...] was ordered. Kori Beyer PA-C was my social work assistant. She assisted with retraction, visualization and [...] DATE: June 05, 2022 TIME: 1:40 PM [facility] XR CHEST 1V FRONTAL PORTon 0 [...] tip in the mid SVC. No pneumothorax. [employer] Supervisor: PSCB Transcribe Date/Time: Jun 05 2022 2:38P Dictated by : EDWIN GAYTAN MD This examination was interpreted and the report reviewed and electronically signed by: EDWIN GAYTAN MD on Jun 05 2022 2:41PM EST [id number] [facility] SURGICAL PATHOLOGYon 05-15- 022 Case Report Surgical Pathology Report Case: [id number] Authorizing Provider: Zeny Crowder MD Collected: 05/10/2022 09:58 AM Ordering Location: General Surgery Received: 05/10/2022 04:21 PM Pathologist: Yady Chopra MD Specimen: LYMPH NODE BREAST, LEFT AXILLARY [facility] Clinical History abnormal CT scan [facility] Diagnosis Comment This is a 76-year-ol [...] been determined by the performing laboratory within [facility] s [facility] Pathology and Laboratory Medicine [place] ([facility], [facility], [facility] or [facility]) in a manner consistent with CLIA requirements. One or more of these tests have not been cleared or approved by the FDA. [facility] is regulated under CLIA as qualified to perform high-complexity testing. These tests are used for clinical purposes. They should not be regarded as investigational or for research. Positive and negative controls stain appropriately. [facility] FINAL DIAGNOSIS A. 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 - See comment. ABO 05/15/2022 [facility] Gross Description A. LYMPH NODE BREAST Received [...] 2022 2:40 PM Gross examination performed at [facility], [address] [place] [address] [facility] Microscopic Description Sections demonst rate cores of [...] and BCL-6, and appropriately negative for BCL-2. [facility] Performing Lab Diagnostic interpretation performed at [facility], [address] [place] [address] CLIA# [id number] [employer] St[employer] Builder: Umberto Dyer M.D. [facility] UA DIP, URINE (POC)on 2021 BILIRUBIN UA (POCT) Negative Negative [facility] CLARITY UA (POCT) Clear [facility] COLOR UA (POCT) Yellow [facility] GLUCOSE UA (POCT) Negative Negative mg/dL [facility] HEMOGLOBIN/BLOOD UA (POCT) Moderate Abnormal Negative [facility] KETONE UA (POCT) Negative Negative mg/dL [facility] LEUKOCYTES UA (POCT) Small Abnormal Negative [facility] NITRITE UA (POCT) Negative Negative [facility] PH UA (POCT) 7.0 4.5 - 8.0 [facility] Protein Ql (U) Trace Abnormal Negative mg/dL [facility] SPECIFIC GRAVITY UA (POCT) 1.010 1.005 - 1.030 [facility] UROBILINOGEN UA (POCT) 0.2 E.U./dL Ana l E.U./dL [facility] US LYMPH NODE BIOPSY AXILLA LEFT (POC) SURG USE ONLYon 05-10-2022 [facility] XR Chest PA and Lateralon IMPRESSION: No acute radiographic abnormality. [employer] Supervisor: IVAN Transcribe Date/Time: Apr 23 2022 4:08P Dictated by : RICARDO HDEZ MD This examination was interpreted and the report reviewed and electronically signed by: RICARDO HDEZ MD on Apr 23 2022 4:12PM EST [id number]_US E_DIVISION OF RADIOLOGY * * *Final Report* [...] degenerative changes. ZZZ_DO_NOT_US E_DIVISION OF RADIOLOGY [facility] * * *Final Report* * [...] changes. IMPRESSION IMPRESSION: No acute radiographic abnormality. [employer] Supervisor: PSCB Transcribe Date/Time: Apr 23 2022 4:08P Dictated by : RICARDO HDEZ MD This examination was interpreted and the report reviewed and electronically signed by: RICARDO HDEZ MD on Apr 23 2022 4:12PM EST [facility] XR Chest PA and LateralOrder ed By: Cc Provider on 04-23-2022 [facility] XR Chest PA and Lateralon Radiology Study observation (narrative) [facility] Clinical Summary: [facility] 12-12-[address] [facility] OP Visit Invalid Interpretation Code [facility] Work Phone: Office Visit: Postop - subse quent visit, Rm: 2on 12-12-2021 NEGATED: Highlighted rowxray history of the lumbar spine on 10/03/2021 at [facility] Invalid Interpretation Code [facility] Work Phone: CBC AND DIFFERENTIALon 09-10 Basophils (Bld) [#/Vol] 0.00 10*3/uL Normal 0.00 - 0.1 0 [facility] Comment on above: Performed By: #### C BCDF #### [address] [address] Basophils/100 WBC (Bld) 0.4 % Normal 0.0 - 2.0 [facility] Comment on above: Performed By: #### C BCDF #### [address] [address] Eosinophils (Bld) [#/Vol] 0.40 10*3/uL Normal 0.00 - 0.40 [facility] Comment on above: Performed By: #### C BCDF #### [address] [address] Eosinophils/100 WBC (Bld) 8.1 % Normal 0.0 - 6.0 [facility] Comment on above: Performed By: #### C BCDF #### [address] [address] Erythrocyte distribution width (RBC) [Ratio] 14.4 % Normal 11.5 - 14.5 [facility] Comment on above: Performed By: #### C BCDF #### [address] [address] Hematocrit (Bld) [Volume fraction] 34.4 % Low 36.0 - 46.0 [facility] Comment on above: Performed By: #### C BCDF #### [address] [address] Hemoglobin (Bld) [Mass/Vol] 11.1 g/dL Low 12.0 - 16.0 [facility] Comment on above: Performed By: #### C BCDF #### [address] [address] Lymphocytes (Bld) [#/Vol] 1.50 10*3/uL Normal 0.80 - 3.00 [facility] Comment on above: Performed By: #### C BCDF #### [address] [address] Lymphocytes/100 WBC (Bld) 31.6 % Normal 13.0 - 44.0 [facility] Comment on above: Performed By: #### C BCDF #### [address] [address] MCHC (RBC) [Mass/Vol] 32.2 g/dL Normal 32.0 - 36.0 [facility] Comment on above: Performed By: #### C BCDF #### [address] [address] MCV (RBC) [Entitic vol] 92 fL Normal 80 - 100 [facility] Comment on above: Performed By: #### C BCDF #### [address] [address] Monocytes (Bld) [#/Vol] 0.50 10*3/uL Normal 0.05 - 0.8 0 [facility] Comment on above: Performed By: #### C BCDF #### [address] [address] Monocytes/100 WBC (Bld) 10.6 % Normal 2.0 - 10.0 [facility] Comment on above: Performed By: #### C BCDF #### [address] [address] Neutrophils (Bld) [#/Vol] 2.30 10*3/uL Normal 1.60 - 5.50 [facility] Comment on above: Result Comment: Perc ent differential counts (%) should be interpreted in the context of the absolute cell counts (cells/L). Performed By: #### C BCDF #### [address] [address] Neutrophils/100 WBC (Bld) 49.3 % Normal 40.0 - 80.0 [facility] Comment on above: Performed By: #### C BCDF #### [address] [address] Platelets (Bld) [#/Vol] 136 10*3/uL Low 150 - 450 [facility] Comment on above: Performed By: #### C BCDF #### [address] [address] RBC 3.74 x10E12/L Low 4.00 - 5.20 [facility] Comment on above: Performed By: #### C BCDF #### [address] [address] WBC (Bld) [#/Vol] 4.6 10*3/uL Normal 4.4 - 11.3 [facility] Comment on above: Performed By: #### C BCDF #### [address] [address] COMPREHENSIVE PANELon 2020 Albumin [Mass/Vol] 3.2 g/dL Low 3.4 - 5.0 [facility] Comment on above: Performed By: #### C MP #### [address] [address] ALP [Catalytic activity/Vol] 53 U/L Normal 33 - 136 [facility] Comment on above: Performed By: #### C MP #### [address] [address] ALT [Catalytic activity/Vol] 4 U/L Low 7 - 45 [facility] Comment on above: Result Comment: Misty ents treated with Sulfasalazine may generate falsely decreased results for ALT. Performed By: #### C MP #### [address] [address] Anion gap [Moles/Vol] 9 mmol/L Low 10 - 20 [facility] Comment on above: Performed By: #### C MP #### [address] [address] AST [Catalytic activity/Vol] 17 U/L Normal 9 - 39 [facility] Comment on above: Performed By: #### C MP #### [address] [address] Bilirubin [Mass/Vol] 0.4 mg/dL Normal 0.0 - 1.2 [facility] Comment on above: Performed By: #### C MP #### [address] [address] Calcium [Mass/Vol] 8.9 mg/dL Normal 8.6 - 10.3 [facility] Comment on above: Performed By: #### C MP #### [address] [address] Chloride [Moles/Vol] 106 mmol/L Normal 98 - 107 [facility] Comment on above: Performed By: #### C MP #### [address] [address] Creatinine [Mass/Vol] 0.59 mg/dL Normal 0.50 - 1.05 [facility] Comment on above: Performed By: #### C MP #### [address] [address] GFR- AM. >60 Normal >60 [facility] Comment on above: Result Comment: CALC ULATIONS OF ESTIMATED GFR ARE PERFORMED USING THE MDRD STUDY EQUATION FOR THE IDMS-TRACEABLE CREATININE METHODS. CLIN CHEM 2007;53:766-72 Performed By: #### C MP #### [address] [address] GFR-NON AM. >60 Normal >60 [facility] Comment on above: Performed By: #### C MP #### [address] [address] Glucose [Mass/Vol] 93 mg/dL Normal 74 - 99 [facility] Comment on above: Performed By: #### C MP #### [address] [address] HCO3 (Bld) [Moles/Vol] 28 mmol/L Normal 21 - 32 [facility] Comment on above: Performed By: #### C MP #### [address] [address] Potassium [Moles/Vol] 3.4 mmol/L Low 3.5 - 5.3 [facility] Comment on above: Performed By: #### C MP #### [address] [address] Protein [Mass/Vol] 5.6 g/dL Low 6.4 - 8.2 [facility] Comment on above: Performed By: #### C MP #### [address] [address] Sodium [Moles/Vol] 140 mmol/L Normal 136 - 145 [facility] Comment on above: Performed By: #### C MP #### [address] [address] Urea nitrogen [Mass/Vol] 10 mg/dL Normal 6 - 23 [facility] Comment on above: Performed By: #### C MP #### [address] [address] SEDIMENTATION RATE, ERYTHROC YTEon 09-10-2021 SEDIMENTATION RATE, ERYTHROCYTE 17 mm/h Normal 0 - 30 [facility] Comment on above: Performed By: #### E SRWS #### [address] [address] CBC AND DIFFERENTIALon 09-03 Basophils (Bld) [#/Vol] 0.00 10*3/uL Normal 0.00 - 0.1 0 [facility] Comment on above: Order Comment: [facility] Performed By: #### C BCDF #### [address] [address] Basophils/100 WBC (Bld) 0.4 % Normal 0.0 - 2.0 [facility] Comment on above: Order Comment: [facility] Performed By: #### C BCDF #### [address] [address] Eosinophils (Bld) [#/Vol] 0.40 10*3/uL Normal 0.00 - 0.40 [facility] Comment on above: Order Comment: [facility] Performed By: #### C BCDF #### [facility] [address] Eosinophils/100 WBC (Bld) 8.7 % Normal 0.0 - 6.0 [facility] Comment on above: Order Comment: [facility] Performed By: #### C BCDF #### [address] [address] Erythrocyte distribution width (RBC) [Ratio] 14.0 % Normal 11.5 - 14.5 [facility] Comment on above: Order Comment: [facility] Performed By: #### C BCDF #### [address] [address] Hematocrit (Bld) [Volume fraction] 33.2 % Low 36.0 - 46.0 [facility] Comment on above: Order Comment: [facility] Performed By: #### C BCDF #### [address] [address] Hemoglobin (Bld) [Mass/Vol] 10.9 g/dL Low 12.0 - 16.0 [facility] Comment on above: Order Comment: [facility] Performed By: #### C BCDF #### [address] [address] Lymphocytes (Bld) [#/Vol] 1.20 10*3/uL Normal 0.80 - 3.00 [facility] Comment on above: Order Comment: [facility] Performed By: #### C BCDF #### [address] [address] Lymphocytes/100 WBC (Bld) 26.5 % Normal 13.0 - 44.0 [facility] Comment on above: Order Comment: [facility] Performed By: #### C BCDF #### [address] [address] MCHC (RBC) [Mass/Vol] 32.7 g/dL Normal 32.0 - 36.0 [facility] Comment on above: Order Comment: [facility] Performed By: #### C BCDF #### [address] [address] MCV (RBC) [Entitic vol] 92 fL Normal 80 - 100 [facility] Comment on above: Order Comment: [facility] Performed By: #### C BCDF #### [address] [address] Monocytes (Bld) [#/Vol] 0.50 10*3/uL Normal 0.05 - 0.8 0 [facility] Comment on above: Order Comment: [facility] Performed By: #### C BCDF #### [address] [address] Monocytes/100 WBC (Bld) 11.0 % Normal 2.0 - 10.0 [facility] Comment on above: Order Comment: [facility] Performed By: #### C BCDF #### [address] [address] Neutrophils (Bld) [#/Vol] 2.40 10*3/uL Normal 1.60 - 5.50 [facility] Comment on above: Order Comment: [facility] Result Comment: Perc ent differential counts (%) should be interpreted in the context of the absolute cell counts (cells/L). Performed By: #### C BCDF #### [address] [address] Neutrophils/100 WBC (Bld) 53.4 % Normal 40.0 - 80.0 [facility] Comment on above: Order Comment: [facility] Performed By: #### C BCDF #### [address] [address] NUCLEATED RBC 0.1 /100 WBC Normal [facility] Comment on above: Order Comment: [facility] Performed By: #### C BCDF #### [address] [address] Platelets (Bld) [#/Vol] 133 10*3/uL Low 150 - 450 [facility] Comment on above: Order Comment: [facility] Performed By: #### C BCDF #### [address] [address] RBC 3.62 x10E12/L Low 4.00 - 5.20 [facility] Comment on above: Order Comment: [facility] Performed By: #### C BCDF #### [address] [address] WBC (Bld) [#/Vol] 4.5 10*3/uL Normal 4.4 - 11.3 [facility] Comment on above: Order Comment: [facility] Performed By: #### C BCDF #### [place] [address] COMPREHENSIVE PANELon 2020 Albumin [Mass/Vol] 3.1 g/dL Low 3.4 - 5.0 [facility] Comment on above: Order Comment: [facility] Performed By: #### C MP #### [place] [address] ALP [Catalytic activity/Vol] 57 U/L Normal 33 - 136 [facility] Comment on above: Order Comment: [facility] Performed By: #### C MP #### [address] [address] ALT [Catalytic activity/Vol] 4 U/L Low 7 - 45 [facility] Comment on above: Order Comment: [facility] Result Comment: Misty ents treated with Sulfasalazine may generate falsely decreased results for ALT. Performed By: #### C MP #### [address] [address] Anion gap [Moles/Vol] 9 mmol/L Low 10 - 20 [facility] Comment on above: Order Comment: [facility] Performed By: #### C MP #### [address] [address] AST [Catalytic activity/Vol] 15 U/L Normal 9 - 39 [facility] Comment on above: Order Comment: [facility] Performed By: #### C MP #### [address] [address] Bilirubin [Mass/Vol] 0.4 mg/dL Normal 0.0 - 1.2 [facility] Comment on above: Order Comment: [facility] Performed By: #### C MP #### [place] [id number] Calcium [Mass/Vol] 8.9 mg/dL Normal 8.6 - 10.3 [facility] Comment on above: Order Comment: [facility] Performed By: #### C MP #### [place] [id number] Chloride [Moles/Vol] 107 mmol/L Normal 98 - 107 [facility] Comment on above: Order Comment: [facility] Performed By: #### C MP #### [place] [id number] Creatinine [Mass/Vol] 0.57 mg/dL Normal 0.50 - 1.05 [facility] Comment on above: Order Comment: [facility] Performed By: #### C MP #### [place] [id number] GFR- AM. >60 Normal >60 [facility] Comment on above: Order Comment: [facility] Result Comment: CALC ULATIONS OF ESTIMATED GFR ARE PERFORMED USING THE MDRD STUDY EQUATION FOR THE IDMS-TRACEABLE CREATININE METHODS. CLIN CHEM 2007;53:766-72 Performed By: #### C MP #### [place] [address] GFR-NON AM. >60 Normal >60 [facility] Comment on above: Order Comment: [facility] Performed By: #### C MP #### [address] [address] Glucose [Mass/Vol] 121 mg/dL High 74 - 99 [facility] Comment on above: Order Comment: [facility] Performed By: #### C MP #### [address] [address] HCO3 (Bld) [Moles/Vol] 26 mmol/L Normal 21 - 32 [facility] Comment on above: Order Comment: [facility] Performed By: #### C MP #### [address] [address] Potassium [Moles/Vol] 3.4 mmol/L Low 3.5 - 5.3 [facility] Comment on above: Order Comment: [facility] Performed By: #### C MP #### [address] [address] Protein [Mass/Vol] 5.5 g/dL Low 6.4 - 8.2 [facility] Comment on above: Order Comment: [facility] Performed By: #### C MP #### [address] [address] Sodium [Moles/Vol] 139 mmol/L Normal 136 - 145 [facility] Comment on above: Order Comment: [facility] Performed By: #### C MP #### [address] [address] Urea nitrogen [Mass/Vol] 12 mg/dL Normal 6 - 23 [facility] Comment on above: Order Comment: [facility] Performed By: #### C MP #### [address] [address] SEDIMENTATION RATE, ERYTHROC YTEon 09-03-2021 SEDIMENTATION RATE, ERYTHROCYTE 23 mm/h Normal 0 - 30 [facility] Comment on above: Order Comment: [facility] Performed By: #### E SRWS #### [address] [address] CBC AND DIFFERENTIALon 08-27 Basophils (Bld) [#/Vol] 0.00 10*3/uL Normal 0.00 - 0.1 0 [facility] Comment on above: Performed By: #### C BCDF #### [address] [address] Basophils/100 WBC (Bld) 0.6 % Normal 0.0 - 2.[address] [facility] Comment on above: Performed By: #### C BCDF #### [address] [address] Eosinophils (Bld) [#/Vol] 0.20 10*3/uL Normal 0.00 - 0.40 [facility] Comment on above: Performed By: #### C BCDF #### [address] [address] Eosinophils/100 WBC (Bld) 3.5 % Normal 0.0 - 6.0 [facility] Comment on above: Performed By: #### C BCDF #### [address] [address] Erythrocyte distribution width (RBC) [Ratio] 14.4 % Normal 11.5 - 14.5 [facility] Comment on above: Performed By: #### C BCDF #### [address] [address] Hematocrit (Bld) [Volume fraction] 33.2 % Low 36.0 - 46.0 [facility] Comment on above: Performed By: #### C BCDF #### [address] [address] Hemoglobin (Bld) [Mass/Vol] 10.8 g/dL Low 12.0 - 16.0 [facility] Comment on above: Performed By: #### C BCDF #### [address] [address] Lymphocytes (Bld) [#/Vol] 1.40 10*3/uL Normal 0.80 - 3.00 [facility] Comment on above: Performed By: #### C BCDF #### [address] [address] Lymphocytes/100 WBC (Bld) 28.3 % Normal 13.0 - 44.0 [facility] Comment on above: Performed By: #### C BCDF #### [address] [address] MCHC (RBC) [Mass/Vol] 32.4 g/dL Normal 32.0 - 36.0 [facility] [facility] Comment on above: Performed By: #### C BCDF #### [address] [address] MCV (RBC) [Entitic vol] 92 fL Normal 80 - 100 U [facility] Comment on above: Performed By: #### C BCDF #### [address] [address] Monocytes (Bld) [#/Vol] 0.40 10*3/uL Normal 0.05 - 0.8 0 [facility] Comment on above: Performed By: #### C BCDF #### [address] [address] Monocytes/100 WBC (Bld) 7.3 % Normal 2.0 - 10.0 [facility] Comment on above: Performed By: #### C BCDF #### [address] [address] Neutrophils (Bld) [#/Vol] 3.10 10*3/uL Normal 1.60 - 5.50 [facility] Comment on above: Result Comment: Perc ent differential counts (%) should be interpreted in the context of the absolute cell counts (cells/L). Performed By: #### C BCDF #### [address] [address] Neutrophils/100 WBC (Bld) 60.3 % Normal 40.0 - 80.0 [facility] Comment on above: Performed By: #### C BCDF #### [address] [address] NUCLEATED RBC 0.1 /100 WBC Normal [facility] Comment on above: Performed By: #### C BCDF #### [address] [address] Platelets (Bld) [#/Vol] 113 10*3/uL Low 150 - 450 [facility] Comment on above: Performed By: #### C BCDF #### [address] [address] RBC 3.62 x10E12/L Low 4.00 - 5.20 [facility] Comment on above: Performed By: #### C BCDF #### [address] [address] WBC (Bld) [#/Vol] 5.1 10*3/uL Normal 4.4 - 11.3 [facility] Comment on above: Performed By: #### C BCDF #### [address] [address] COMPREHENSIVE PANELon 2020 Albumin [Mass/Vol] 3.0 g/dL Low 3.4 - 5.0 [facility] Comment on above: Performed By: #### C MP #### [address] [address] ALP [Catalytic activity/Vol] 54 U/L Normal 33 - 136 [facility] Comment on above: Performed By: #### C MP #### [address] [address] ALT [Catalytic activity/Vol] 5 U/L Low 7 - 45 [facility] Comment on above: Result Comment: Misty ents treated with Sulfasalazine may generate falsely decreased results for ALT. Performed By: #### C MP #### [address] [address] Anion gap [Moles/Vol] 9 mmol/L Low 10 - 20 [facility] Comment on above: Performed By: #### C MP #### [address] [address] AST [Catalytic activity/Vol] 16 U/L Normal 9 - 39 [facility] Comment on above: Performed By: #### C MP #### [address] [address] Bilirubin [Mass/Vol] 0.4 mg/dL Normal 0.0 - 1.2 [facility] Comment on above: Performed By: #### C MP #### [address] [address] Calcium [Mass/Vol] 8.9 mg/dL Normal 8.6 - 10.3 [facility] Comment on above: Performed By: #### C MP #### [address] [address] Chloride [Moles/Vol] 107 mmol/L Normal 98 - 107 [facility] Comment on above: Performed By: #### C MP #### [address] [address] Creatinine [Mass/Vol] 0.62 mg/dL Normal 0.50 - 1.05 [facility] Comment on above: Performed By: #### C MP #### [address] [address] GFR- AM. >60 Normal >60 [facility] Comment on above: Result Comment: CALC ULATIONS OF ESTIMATED GFR ARE PERFORMED USING THE MDRD STUDY EQUATION FOR THE IDMS-TRACEABLE CREATININE METHODS. CLIN CHEM 2007;53:766-72 Performed By: #### C MP #### [address] [address] GFR-NON AM. >60 Normal >60 [facility] Comment on above: Performed By: #### C MP #### [address] [address] Glucose [Mass/Vol] 89 mg/dL Normal 74 - 99 [facility] Comment on above: Performed By: #### C MP #### [address] [address] HCO3 (Bld) [Moles/Vol] 28 mmol/L Normal 21 - 32 [facility] Comment on above: Performed By: #### C MP #### [address] [address] Potassium [Moles/Vol] 3.7 mmol/L Normal 3.5 - 5.3 [facility] Comment on above: Performed By: #### C MP #### [address] [address] Protein [Mass/Vol] 5.5 g/dL Low 6.4 - 8.2 [facility] Comment on above: Performed By: #### C MP #### [address] [address] Sodium [Moles/Vol] 140 mmol/L Normal 136 - 145 [facility] Comment on above: Performed By: #### C MP #### [address] [address] Urea nitrogen [Mass/Vol] 9 mg/dL Normal 6 - 23 [facility] Comment on above: Performed By: #### C MP #### [address] [address] SEDIMENTATION RATE, ERYTHROC YTEon 08-27-2021 SEDIMENTATION RATE, ERYTHROCYTE 21 mm/h Normal 0 - 30 [facility] Comment on above: Performed By: #### E SRWS #### [address] [address] CBC W Auto Differential pane l (Bld)on 07-11-2021 Basophils (Bld) [#/Vol] 10*3/uL Normal <0.11 [facility] Comment on above: Order Comment: Speci men Type: BLOOD SPECIMEN Performed By: #### 5 7021-8 #### [facility] CLIA [id number] [address] [place] [address] [place] Basophils/100 WBC (Bld) 0.2 % Normal [facility] Comment on above: Order Comment: Speci men Type: BLOOD SPECIMEN Performed By: #### 5 7021-8 #### [facility] CLIA [id number] [address] [place] [address] [place] Differential cell count method Nom (Bld) Auto Normal [facility] Comment on above: Order Comment: Speci men Type: BLOOD SPECIMEN Performed By: #### 5 7021-8 #### [facility] CLIA [id number] [address] [place] [address] [place] Eosinophils (Bld) [#/Vol] 0.19 10*3/uL Normal <0.46 [facility] Comment on above: Order Comment: Speci men Type: BLOOD SPECIMEN Performed By: #### 5 7021-8 #### [facility] CLIA [id number] [address] [place] [address] [place] Eosinophils/100 WBC (Bld) 3.4 % Normal [facility] Comment on above: Order Comment: Speci men Type: BLOOD SPECIMEN Performed By: #### 5 7021-8 #### [facility] CLIA [id number] [address] [place] [address] [place] Erythrocyte distribution width (RBC) [Ratio] 14.0 % Normal 11.5-15.0 [facility] Comment on above: Order Comment: Speci men Type: BLOOD SPECIMEN Performed By: #### 5 7021-8 #### [facility] CLIA [id number] [address] [place] [address] [place] [facility] Hematocrit (Bld) [Volume fraction] 38.6 % Normal 36.0-46.0 [facility] Comment on above: Order Comment: Speci men Type: BLOOD SPECIMEN Performed By: #### 5 7021-8 #### [facility] CLIA [id number] [address] [place] [address] [place] Hemoglobin (Bld) [Mass/Vol] 12.0 g/dL Normal 11.5-15.5 [facility] Comment on above: Order Comment: Speci men Type: BLOOD SPECIMEN Performed By: #### 5 7021-8 #### [facility] CLIA [id number] [address] [place] [address] [place] Lymphocytes (Bld) [#/Vol] 2.57 10*3/uL Normal 1.00-4.00 [facility] Comment on above: Order Comment: Speci men Type: BLOOD SPECIMEN Performed By: #### 5 7021-8 #### [facility] CLIA [id number] [address] [place] [address] [place] Lymphocytes/100 WBC (Bld) 46.6 % Normal [facility] Comment on above: Order Comment: Speci men Type: BLOOD SPECIMEN Performed By: #### 5 7021-8 #### [facility] CLIA [id number] [address] [place] [address] [place] MCH (RBC) [Entitic mass] 30.6 pg Normal 26.0-34.0 [facility] Comment on above: Order Comment: Speci men Type: BLOOD SPECIMEN Performed By: #### 5 7021-8 #### [facility] CLIA [id number] [address] [place] [address] [place] MCHC (RBC) [Mass/Vol] 31.1 g/dL Normal 30.5-36.0 [facility] Comment on above: Order Comment: Speci men Type: BLOOD SPECIMEN Performed By: #### 5 7021-8 #### [facility] CLIA [id number] [address] [place] [address] [place] MCV (RBC) [Entitic vol] 98.5 fL Normal 80.0-100.0 [facility] Comment on above: Order Comment: Speci men Type: BLOOD SPECIMEN Performed By: #### 5 7021-8 #### [facility] CLIA [id number] [address] [place] [address] [place] Monocytes (Bld) [#/Vol] 0.52 10*3/uL Normal <0.87 [facility] Comment on above: Order Comment: Speci men Type: BLOOD SPECIMEN Performed By: #### 5 7021-8 #### [facility] CLIA [id number] [address] [place] [address] [place] Monocytes/100 WBC (Bld) 9.4 % Normal [facility] Comment on above: Order Comment: Speci men Type: BLOOD SPECIMEN Performed By: #### 5 7021-8 #### [facility] CLIA [id number] [address] [place] [address] [place] Neutrophils (Bld) [#/Vol] 2.23 10*3/uL Normal 1.45-7.50 [facility] Comment on above: Order Comment: Speci men Type: BLOOD SPECIMEN Performed By: #### 5 7021-8 #### [facility] CLIA [id number] [address] [place] [address] [place] Neutrophils/100 WBC (Bld) 40.4 % Normal [facility] Comment on above: Order Comment: Speci men Type: BLOOD SPECIMEN Performed By: #### 5 7021-8 #### [facility] CLIA [id number] [address] [place] [address] [place] Platelet mean volume (Bld) [Entitic vol] 11.0 fL Normal 9.0-12.7 [facility] Comment on above: Order Comment: Speci men Type: BLOOD SPECIMEN Performed By: #### 5 7021-8 #### [facility] CLIA [id number] [address] [place] [address] [place] Platelets (Bld) [#/Vol] 138 10*3/uL Low 150-400 [facility] Comment on above: Order Comment: Speci men Type: BLOOD SPECIMEN Performed By: #### 5 7021-8 #### [facility] CLIA [id number] [address] [place] [address] [place] RBC (Bld) [#/Vol] 3.92 10*6/uL Normal 3.90-5.20 [facility] Comment on above: Order Comment: Speci men Type: BLOOD SPECIMEN Performed By: #### 5 7021-8 #### [facility] CLIA [id number] [address] [place] [address] [place] WBC (Bld) [#/Vol] 5.52 10*3/uL Normal 3.70-11.00 [facility] Comment on above: Order Comment: Speci men Type: BLOOD SPECIMEN Performed By: #### 5 7021-8 #### [facility] CLIA [id number] [address] [place] [address] [place] CRP SerPl-mCncon 07-11-2021 CRP [Mass/Vol] 0.3 mg/dL Normal <0.9 [facility] Comment on above: Order Comment: Speci men Type: BLOOD SPECIMEN Performed By: #### 1 988-5 #### [facility] CLIA [id number] [address] OF [facility] ESR Westergren method (Bld) [Velocity]on 07-11-2021 ESR (Bld) [Velocity] 23 mm/h High 0-20 [facility] Comment on above: Order Comment: Speci men Type: BLOOD SPECIMEN Performed By: #### 4 537-7 #### [facility] CLIA [id number] [address] [place] [address] [facility] CBC AND DIFFERENTIALon 06-21 Basophils (Bld) [#/Vol] 0.00 10*3/uL Normal 0.00 - 0.1 0 [facility] Comment on above: Performed By: #### C BCDF #### [address] [address] Basophils/100 WBC (Bld) 0.4 % Normal 0.0 - 2.0 [facility] Comment on above: Performed By: #### C BCDF #### [address] [address] Eosinophils (Bld) [#/Vol] 0.10 10*3/uL Normal 0.00 - 0.40 [facility] Comment on above: Performed By: #### C BCDF #### [address] [address] Eosinophils/100 WBC (Bld) 1.6 % Normal 0.0 - 6.0 [facility] Comment on above: Performed By: #### C BCDF #### [address] [address] Erythrocyte distribution width (RBC) [Ratio] 15.0 % High 11.5 - 14.5 [facility] Comment on above: Performed By: #### C BCDF #### [address] [address] Hematocrit (Bld) [Volume fraction] 36.4 % Normal 36.0 - 46.0 [facility] Comment on above: Performed By: #### C BCDF #### [address] [address] Hemoglobin (Bld) [Mass/Vol] 11.8 g/dL Low 12.0 - 16.0 [facility] Comment on above: Performed By: #### C BCDF #### [address] [address] Lymphocytes (Bld) [#/Vol] 2.00 10*3/uL Normal 0.80 - 3.00 [facility] Comment on above: Performed By: #### C BCDF #### [address] [address] Lymphocytes/100 WBC (Bld) 35.7 % Normal 13.0 - 44.0 [facility] Comment on above: Performed By: #### C BCDF #### [address] [address] MCHC (RBC) [Mass/Vol] 32.3 g/dL Normal 32.0 - 36.0 [facility] Comment on above: Performed By: #### C BCDF #### [address] [address] MCV (RBC) [Entitic vol] 95 fL Normal 80 - 100 [facility] Comment on above: Performed By: #### C BCDF #### [address] [address] Monocytes (Bld) [#/Vol] 0.50 10*3/uL Normal 0.05 - 0.8 0 [facility] Comment on above: Performed By: #### C BCDF #### [address] [address] Monocytes/100 WBC (Bld) 8.4 % Normal 2.0 - 10.0 [facility] Comment on above: Performed By: #### C BCDF #### [address] [address] Neutrophils (Bld) [#/Vol] 3.10 10*3/uL Normal 1.60 - 5.50 [facility] Comment on above: Result Comment: Perc ent differential counts (%) should be interpreted in the context of the absolute cell counts (cells/L). Performed By: #### C BCDF #### [address] [address] Neutrophils/100 WBC (Bld) 53.9 % Normal 40.0 - 80.0 [facility] Comment on above: Performed By: #### C BCDF #### [address] [address] NUCLEATED RBC 0.2 /100 WBC Normal [facility] Comment on above: Performed By: #### C BCDF #### [address] [address] Platelets (Bld) [#/Vol] 201 10*3/uL Normal 150 - 450 [facility] Comment on above: Performed By: #### C BCDF #### [address] [address] RBC 3.85 x10E12/L Low 4.00 - 5.20 [facility] Comment on above: Performed By: #### C BCDF #### [address] [address] WBC (Bld) [#/Vol] 5.7 10*3/uL Normal 4.4 - 11.3 [facility] Comment on above: Performed By: #### C BCDF #### [address] [address] COMPREHENSIVE PANELon 2020 Albumin [Mass/Vol] 3.3 g/dL Low 3.4 - 5.0 [facility] Comment on above: Order Comment: [facility] Performed By: #### C MP #### [address] [address] ALP [Catalytic activity/Vol] 78 U/L Normal 33 - 136 [facility] Comment on above: Order Comment: [facility] Performed By: #### C MP #### [address] [address] ALT [Catalytic activity/Vol] 6 U/L Low 7 - 45 [facility] Comment on above: Order Comment: [facility] Result Comment: Misty ents treated with Sulfasalazine may generate falsely decreased results for ALT. Performed By: #### C MP #### [address] [address] Anion gap [Moles/Vol] 12 mmol/L Normal 10 - 20 [facility] Comment on above: Order Comment: [facility] Performed By: #### C MP #### [address] [address] AST [Catalytic activity/Vol] 19 U/L Normal 9 - 39 [facility] Comment on above: Order Comment: [facility] Performed By: #### C MP #### [address] [address] Bilirubin [Mass/Vol] 0.3 mg/dL Normal 0.0 - 1.2 [facility] Comment on above: Order Comment: [facility] Performed By: #### C MP #### [address] [address] Calcium [Mass/Vol] 9.3 mg/dL Normal 8.6 - 10.3 [facility] Comment on above: Order Comment: [facility] Performed By: #### C MP #### [address] [address] Chloride [Moles/Vol] 103 mmol/L Normal 98 - 107 [facility] Comment on above: Order Comment: [facility] Performed By: #### C MP #### [address] [address] Creatinine [Mass/Vol] 0.70 mg/dL Normal 0.50 - 1.05 [facility] Comment on above: Order Comment: [facility] Performed By: #### C MP #### [address] [address] GFR- AM. >60 Normal >60 [facility] Comment on above: Order Comment: [facility] Result Comment: CALC ULATIONS OF ESTIMATED GFR ARE PERFORMED USING THE MDRD STUDY EQUATION FOR THE IDMS-TRACEABLE CREATININE METHODS. CLIN CHEM 2007;53:766-72 Performed By: #### C MP #### [place] [id number] GFR-NON AM. >60 Normal >60 [facility] Comment on above: Order Comment: [facility] Performed By: #### C MP #### [address] [address] Glucose [Mass/Vol] 103 mg/dL High 74 - 99 [facility] Comment on above: Order Comment: [facility] Performed By: #### C MP #### [address] [address] HCO3 (Bld) [Moles/Vol] 28 mmol/L Normal 21 - 32 [facility] Comment on above: Order Comment: [facility] Performed By: #### C MP #### [address] [address] Potassium [Moles/Vol] 3.8 mmol/L Normal 3.5 - 5.3 [facility] Comment on above: Order Comment: [facility] Performed By: #### C MP #### [address] [address] Protein [Mass/Vol] 6.3 g/dL Low 6.4 - 8.2 [facility] Comment on above: Order Comment: [facility] Performed By: #### C MP #### [address] [address] Sodium [Moles/Vol] 139 mmol/L Normal 136 - 145 [facility] Comment on above: Order Comment: [facility] Performed By: #### C MP #### [address] [address] Urea nitrogen [Mass/Vol] 13 mg/dL Normal 6 - 23 [facility] Comment on above: Order Comment: [facility] Performed By: #### C MP #### [address] [address] TSHon 06-21-2021 TSH Qn 4.73 m[IU]/L High 0.44 - 3.98 [facility] Comment on above: Order Comment: [facility] Result Comment: TSH testing is performed using different testing methodology at [facility] than at other system hospitals. Direct result comparisons should only be made within the same method. Performed By: #### T SH2 #### [place] [address] [place] [address] Bacteria Bld Culton 05-18-20 Bacteria identified Cx Nom (Bld) CULTURE, BLOOD: No growth 5 days Normal [facility] Comment on above: Performed By: #### 6 00-7 #### [facility] CLIA [id number] [address] Bacteria identified Cx Nom (Bld) CULTURE, BLOOD: No growth 5 days Normal [facility] Comment on above: Performed By: #### 6 00-7 #### [facility] CLIA [id number] [address] CBC W Auto Differential pane l (Bld)on 05-18-2021 Basophils (Bld) [#/Vol] 10*3/uL Normal <0.11 [facility] Comment on above: Order Comment: Speci men Type: BLOOD SPECIMEN Performed By: #### 5 7021-8 #### [facility] CLIA [id number] [address] Basophils/100 WBC (Bld) 0.2 % Normal [facility] Comment on above: Order Comment: Speci men Type: BLOOD SPECIMEN Performed By: #### 5 7021-8 #### [facility] CLIA [id number] [address] [place], [place] [address] [place] [address] Differential cell count method Nom (Bld) Auto Normal [facility] Comment on above: Order Comment: Speci men Type: BLOOD SPECIMEN Performed By: #### 5 7021-8 #### [facility] CLIA [id number] [address] [place] [address] [place] Eosinophils (Bld) [#/Vol] 0.13 10*3/uL Normal <0.46 [facility] Comment on above: Order Comment: Speci men Type: BLOOD SPECIMEN Performed By: #### 5 7021-8 #### [facility] CLIA [id number] [address] [place] [address] [place] Eosinophils/100 WBC (Bld) 2.8 % Normal [facility] Comment on above: Order Comment: Speci men Type: BLOOD SPECIMEN Performed By: #### 5 7021-8 #### [facility] CLIA [id number] [address] [place] [address] [place] Erythrocyte distribution width (RBC) [Ratio] 13.4 % Normal 11.5-15.0 [facility] Comment on above: Order Comment: Speci men Type: BLOOD SPECIMEN Performed By: #### 5 7021-8 #### [facility] CLIA [id number] [address] [place] [address] [place] Hematocrit (Bld) [Volume fraction] 42.1 % Normal 36.0-46.0 [facility] Comment on above: Order Comment: Speci men Type: BLOOD SPECIMEN Performed By: #### 5 7021-8 #### [facility] CLIA [id number] [address] [place] [address] [place] Hemoglobin (Bld) [Mass/Vol] 13.6 g/dL Normal 11.5-15.5 [facility] Comment on above: Order Comment: Speci men Type: BLOOD SPECIMEN Performed By: #### 5 7021-8 #### [facility] CLIA [id number] [address] [place] [address] [place] Lymphocytes (Bld) [#/Vol] 1.58 10*3/uL Normal 1.00-4.00 [facility] Comment on above: Order Comment: Speci men Type: BLOOD SPECIMEN Performed By: #### 5 7021-8 #### [facility] CLIA [id number] [address] [place] [address] [place] Lymphocytes/100 WBC (Bld) 33.5 % Normal [facility] Comment on above: Order Comment: Speci men Type: BLOOD SPECIMEN Performed By: #### 5 7021-8 #### [facility] CLIA [id number] [address] [place] [address] [facility] [place] MCH (RBC) [Entitic mass] 30.4 pg Normal 26.0-34.0 [facility] Comment on above: Order Comment: Speci men Type: BLOOD SPECIMEN Performed By: #### 5 7021-8 #### [facility] CLIA [id number] [address] [place] [address] [place] MCHC (RBC) [Mass/Vol] 32.3 g/dL Normal 30.5-36.0 [facility] Comment on above: Order Comment: Speci men Type: BLOOD SPECIMEN Performed By: #### 5 7021-8 #### [facility] CLIA [id number] [address] [place] [address] [facility] MCV (RBC) [Entitic vol] 94.0 fL Normal 80.0-100.0 [facility] Comment on above: Order Comment: Speci men Type: BLOOD SPECIMEN Performed By: #### 5 7021-8 #### [facility] CLIA [id number] [address] [place] [address] [facility] Monocytes (Bld) [#/Vol] 0.39 10*3/uL Normal <0.87 [facility] Comment on above: Order Comment: Speci men Type: BLOOD SPECIMEN Performed By: #### 5 7021-8 #### [facility] CLIA [id number] [address] [place] [address] [facility] Monocytes/100 WBC (Bld) 8.3 % Normal [facility] Comment on above: Order Comment: Speci men Type: BLOOD SPECIMEN Performed By: #### 5 7021-8 #### [facility] CLIA [id number] [address] [place] [address] [facility] Neutrophils (Bld) [#/Vol] 2.61 10*3/uL Normal 1.45-7.50 [facility] Comment on above: Order Comment: Speci men Type: BLOOD SPECIMEN Performed By: #### 5 7021-8 #### [facility] CLIA [id number] [address] [place] [address] [facility] Neutrophils/100 WBC (Bld) 55.2 % Normal [facility] Comment on above: Order Comment: Speci men Type: BLOOD SPECIMEN Performed By: #### 5 7021-8 #### [facility] CLIA [id number] [address] [place] [address] [place] Platelet mean volume (Bld) [Entitic vol] 10.4 fL Normal 9.0-12.7 [facility] Comment on above: Order Comment: Speci men Type: BLOOD SPECIMEN Performed By: #### 5 7021-8 #### [facility] CLIA [id number] [address] [place] [address] [place] Platelets (Bld) [#/Vol] 144 10*3/uL Low 150-400 [facility] Comment on above: Order Comment: Speci men Type: BLOOD SPECIMEN Performed By: #### 5 7021-8 #### [facility] CLIA [id number] [address] [place] [address] [facility] [place] RBC (Bld) [#/Vol] 4.48 10*6/uL Normal 3.90-5.20 [facility] Comment on above: Order Comment: Speci men Type: BLOOD SPECIMEN Performed By: #### 5 7021-8 #### [facility] CLIA [id number] [address] [place] [address] [place] WBC (Bld) [#/Vol] 4.72 10*3/uL Normal 3.70-11.00 [facility] Comment on above: Order Comment: Speci men Type: BLOOD SPECIMEN Performed By: #### 5 7021-8 #### [facility] CLIA [id number] [address] [place] [address] [place] NECK SOFT TISSUE W IVCONo n 05-18-2021 CT NECK SOFT TISSUE W IVCON * * *Final Report* * * DATE OF EXAM: May 18 2021 12:21AM [facility] 0013 - CT NECK SOFT TISSUE W [...] Additional findings later relayed to Dr. Levine. [employer] Supervisor: PSCB Transcribe Date/Time: May 18 2021 12:56A Dictated by : LAURIE CHERRY MD This examination was interpreted and the report reviewed and electronically signed by: LAURIE CHERRY MD on May 18 2021 1:40AM EST [id number] Normal [facility] Comprehensive metabolic 2000 panelon 05-18-2021 Albumin [Mass/Vol] 3.8 g/dL Low 3.9-4.9 [facility] Comment on above: Order Comment: Speci men Type: BLOOD SPECIMEN Performed By: #### 2 4323-8 #### [facility] CLIA [id number] [address] [place] [address] [place] ALP [Catalytic activity/Vol] 67 U/L Normal 34-123 [facility] Comment on above: Order Comment: Speci men Type: BLOOD SPECIMEN Performed By: #### 2 4323-8 #### [facility] CLIA [id number] [address] [place] [address] [place] ALT With P-5'-P [Catalytic activity/Vol] 7 U/L Normal 7-38 [facility] Comment on above: Order Comment: Speci men Type: BLOOD SPECIMEN Performed By: #### 2 4323-8 #### [facility] CLIA [id number] [address] [place] [address] [place] Anion gap [Moles/Vol] 12 mmol/L Normal 9-18 [facility] Comment on above: Order Comment: Speci men Type: BLOOD SPECIMEN Performed By: #### 2 4323-8 #### [facility] CLIA [id number] [address] [place] [address] [place] AST With P-5'-P [Catalytic activity/Vol] 26 U/L Normal 13-35 [facility] Comment on above: Order Comment: Speci men Type: BLOOD SPECIMEN Performed By: #### 2 4323-8 #### [facility] CLIA [id number] [address] [facility] [place] [address] [place] Bilirubin [Mass/Vol] 0.3 mg/dL Normal 0.2-1.3 [facility] Comment on above: Order Comment: Speci men Type: BLOOD SPECIMEN Performed By: #### 2 4323-8 #### [facility] CLIA [id number] [address] [facility] [place] [address] [place] Calcium [Mass/Vol] 9.6 mg/dL Normal 8.5-10.2 [facility] Comment on above: Order Comment: Speci men Type: BLOOD SPECIMEN Performed By: #### 2 4323-8 #### [facility] CLIA [id number] [address] [facility] [place] [address] [place] Chloride [Moles/Vol] 99 mmol/L Normal 97-105 [facility] Comment on above: Order Comment: Speci men Type: BLOOD SPECIMEN Performed By: #### 2 4323-8 #### [facility] CLIA [id number] [address] [facility] [place] [address] [place] CO2 [Moles/Vol] 25 mmol/L Normal 22-30 [facility] Comment on above: Order Comment: Speci men Type: BLOOD SPECIMEN Performed By: #### 2 4323-8 #### [facility] CLIA [id number] [address] [facility] [place] [address] [place] Creatinine [Mass/Vol] 0.77 mg/dL Normal 0.58-0.96 [facility] Comment on above: Order Comment: Speci men Type: BLOOD SPECIMEN Performed By: #### 2 4323-8 #### [facility] CLIA [id number] [address] [facility] [place] [address] [place] GFR/1.73 sq M.predicted among blacks MDRD (S/P/Bld) [Vol rate/Area] mL/min/{1.73_m2} Normal [facility] Comment on above: Order Comment: Ludin carmen Type: BLOOD SPECIMEN Performed By: #### 2 4323-8 #### [facility] CLIA [id number] [address] [place] [address] [place] GFR/1.73 sq M.predicted among non-blacks MDRD (S/P/Bld) [Vol rate/Area] mL/min/{1.73_m2} Normal [facility] Comment on above: [facility]: [facility] Type: BLOOD SPECIMEN Result Comment: eGFR (Estimated [...] GFR. Performed By: #### 2 4323-8 #### [facility] CLIA [id number] [address] [place] [address] [place] Glucose [Mass/Vol] 121 mg/dL High 74-99 [facility] Comment on above: Order Comment: [facility] Type: BLOOD SPECIMEN Result Comment: The [place] Diabetes Association (ADA) provides guidance for cutoff [...] Standards of Medical Care in Diabetes 2016, [place] Diabetes Association. Diabetes Care. 2016.39(Suppl 1). Performed By: #### 2 4323-8 #### [facility] CLIA [id number] [address] [place] [address] [place] Potassium [Moles/Vol] 4.1 mmol/L Normal 3.7-5.1 [facility] Comment on above: Order Comment: Speci men Type: BLOOD SPECIMEN Performed By: #### 2 4323-8 #### [facility] CLIA [id number] [address] [place] [address] [place] Protein [Mass/Vol] 6.9 g/dL Normal 6.3-8.0 [facility] Comment on above: Order Comment: Speci men Type: BLOOD SPECIMEN Performed By: #### 2 4323-8 #### [facility] CLIA [id number] [address] [place] [address] [place] Sodium [Moles/Vol] 136 mmol/L Normal 136-144 [facility] Comment on above: Order Comment: Speci men Type: BLOOD SPECIMEN Performed By: #### 2 4323-8 #### [facility] CLIA [id number] [address] [place] [address] [place] [facility] Urea nitrogen [Mass/Vol] 18 mg/dL Normal 7-21 [facility] Comment on above: Order Comment: Speci men Type: BLOOD SPECIMEN Performed By: #### 2 4323-8 #### [facility] CLIA [id number] [address] [place] [address] [place] Lactate (Bld) [Moles/Vol]on 05-18-2021 Lactate [Moles/Vol] 1.0 mmol/L Normal 0.5-2.2 [facility] Comment on above: Order Comment: Speci men Type: BLOOD SPECIMEN Performed By: #### 3 2693-4 #### [facility] CLIA [id number] [address] [place] [address] [facility] [place] SARS-CoV-2 RNA Resp Ql ANALI+p robeon 05-18-2021 SARS-CoV-2 (COVID-19) RNA ANALI+probe Ql (Resp) COVID 19 RESULT: SARS-CoV-2 (Agent of COVID-19) Not Detected by PCR. This test has been authorized by FDA under an Emergency Use Authorization (EUA) Normal [facility] Comment on above: Performed By: #### 3 2693-4 #### [facility] CLIA [id number] [address] [place] [address] [place] XR CHEST 1V [...] emergency room on 05/18/2021 at 1:30 AM. [employer] Supervisor: PSCStanley Transcribe Date/Time: May 18 2021 1:23A Dictated by : EDY IVERSON MD This examination was interpreted and the report reviewed and electronically signed by: EDY IVERSON MD on May 18 2021 1:32AM EST [id number] Normal [facility] MRI Spine Lumbar w/ + w/o Co ntraston 04-30-2021 MRI Spine Lumbar w/ + w/o Contrast Patient Name: LISA UP [facility] ACCESSION EXAM DATE/TIME PROCEDURE ORDERING PROVIDER [id number] 04/30/2021 15:15 EDT MRI Spine Lumbar w/ + w/ TALIWAL, MU V o Contrast CPT code 46389 Reason For Exam (MRI Spine Lumbar w/ [...] central/right paracentral disc herniation is present with vrrr-jx-dylyxklt narrowing of the central canal. The foramina are patent. At the L1/L2 level, circumferential disc bulging with small osteophytes are present, more pronounced in the right paracentral region. There is narrowing of the right lateral recess. Degenerative facet changes are present. Roxd-tw-dphdckci narrowing of the central canal is noted. Iapt-cx-ljskkvha bilateral foraminal narrowing is greater on the right. At the L2/L3 level, minimal retrolisthesis is noted. There is circumferential disc bulging is slightly more focal in the right [facility] Res[facility] Report paracentral/foraminal region. Moderate to severe right and zxfq-rk-hctbaazx left-sided foraminal narrowing is noted. Laminectomy is [...] spinal fixation. The central canal is patent. Kjuz-mi-nmiehdoy bilateral foraminal stenosis is present. Impression: Small [...] Transcribed Date and Time: 05/01/2021 11:05 Normal [facility] XR Chest PA and Lateralon IMPRESSION: No acute radiographic abnormality. [employer] Supervisor: PSCB Transcribe Date/Time: Mar 21 2021 1:02P Dictated by : PERFECTO LAMB MD This examination was interpreted and the report reviewed and electronically signed by: PERFECTO LAMB MD on Mar 21 2021 1:03PM [facility] DIVISION OF RADIOLOGY * * *Final [...] soft tissues: Unremarkable. DIVISION OF RADIOLOGY Provider, [facility] - 03/21/2021 * * *Final Report* * [...] Unremarkable. IMPRESSION IMPRESSION: No acute radiographic abnormality. [employer] Supervisor: PSCB Transcribe Date/Time: Mar 21 2021 1:02P Dictated by : PERFECTO LAMB MD This examination was interpreted and the report reviewed and electronically signed by: PERFECTO LAMB MD on Mar 21 2021 1:03PM EST [facility] Radiology Study observation (narrative) [facility] XR Chest PA and LateralOrder ed By: Ccf Provider on 03-21-2021 [facility] PREALBUMINon 03-10-2021 Prealbumin [Mass/Vol] 11.8 mg/dL Low 18.0 - 40.0 [facility] Comment on above: Performed By: #### P REAL #### [facility] [address] [place] [address] CBC AND DIFFERENTIALon 03-09 Basophils (Bld) [#/Vol] 0.00 10*3/uL Normal 0.00 - 0.1 0 [facility] Comment on above: Performed By: #### C BCDF #### [address] [address] Basophils/100 WBC (Bld) 0.3 % Normal 0.0 - 2.0 [facility] Comment on above: Performed By: #### C BCDF #### [address] [address] Eosinophils (Bld) [#/Vol] 0.20 10*3/uL Normal 0.00 - 0.40 [facility] Comment on above: Performed By: #### C BCDF #### [address] [address] Eosinophils/100 WBC (Bld) 4.0 % Normal 0.0 - 6.0 [facility] Comment on above: Performed By: #### C BCDF #### [address] [address] Erythrocyte distribution width (RBC) [Ratio] 14.3 % Normal 11.5 - 14.5 [facility] Comment on above: Performed By: #### C BCDF #### [address] [address] Hematocrit (Bld) [Volume fraction] 36.9 % Normal 36.0 - 46.0 [facility] Comment on above: Performed By: #### C BCDF #### [address] [address] Hemoglobin (Bld) [Mass/Vol] 12.2 g/dL Normal 12.0 - 16.0 [facility] Comment on above: Performed By: #### C BCDF #### [address] [address] Lymphocytes (Bld) [#/Vol] 1.10 10*3/uL Normal 0.80 - 3.00 [facility] Comment on above: Performed By: #### C BCDF #### [address] [address] Lymphocytes/100 WBC (Bld) 27.2 % Normal 13.0 - 44.0 [facility] Comment on above: Performed By: #### C BCDF #### [address] [address] MCHC (RBC) [Mass/Vol] 32.9 g/dL Normal 32.0 - 36.0 [facility] Comment on above: Performed By: #### C BCDF #### [address] [address] MCV (RBC) [Entitic vol] 93 fL Normal 80 - 100 [facility] Comment on above: Performed By: #### C BCDF #### [address] [address] Monocytes (Bld) [#/Vol] 0.30 10*3/uL Normal 0.05 - 0.8 0 [facility] Comment on above: Performed By: #### C BCDF #### [address] [address] Monocytes/100 WBC (Bld) 7.6 % Normal 2.0 - 10.0 [facility] Comment on above: Performed By: #### C BCDF #### [address] [address] Neutrophils (Bld) [#/Vol] 2.50 10*3/uL Normal 1.60 - 5.50 [facility] Comment on above: Result Comment: Perc ent differential counts (%) should be interpreted in the context of the absolute cell counts (cells/L). Performed By: #### C BCDF #### [address] [address] Neutrophils/100 WBC (Bld) 60.9 % Normal 40.0 - 80.0 [facility] Comment on above: Performed By: #### C BCDF #### [address] [address] NUCLEATED RBC 0.1 /100 WBC Normal [facility] Comment on above: Performed By: #### C BCDF #### [address] [address] Platelets (Bld) [#/Vol] 144 10*3/uL Low 150 - 450 [facility] Comment on above: Performed By: #### C BCDF #### [address] [address] RBC 3.96 x10E12/L Low 4.00 - 5.20 [facility] Comment on above: Performed By: #### C BCDF #### [address] [address] WBC (Bld) [#/Vol] 4.1 10*3/uL Low 4.4 - 11.3 [facility] Comment on above: Performed By: #### C BCDF #### [address] [address] XR Chest PA and Lateralon IMPRESSION: No acute radiographic abnormality. [employer] Supervisor: PSCStanley Transcribe Date/Time: Jan 12 2021 3:02P Dictated by : ANEL REICH MD This examination was interpreted and the report reviewed and electronically signed by: ANEL REICH MD on Jan 12 2021 3:04PM [facility] DIVISION OF RADIOLOGY * * *Final [...] the thoracic spine. DIVISION OF RADIOLOGY [facility] * * *Final Report* * [...] spine. IMPRESSION IMPRESSION: No acute radiographic abnormality. [employer] Supervisor: IVAN Transcribe Date/Time: Jan 12 2021 3:02P Dictated by : ANEL REICH MD This examination was interpreted and the report reviewed and electronically signed by: ANEL REICH MD on Jan 12 2021 3:04PM EST [facility] Radiology [facility]ative[facility] X[facility] Chest PA and LateralOrder ed By: Ccf Provider on 01-12-2021 [facility] No Panel Informationon 12-06 Radiology Study observation (narrative) [place] XR Lumbar spine AP and Later diony 12-06-2020 IMPRESSION: Lumbar postsurgical and degenerative findings with mild curvature. L4-5 spondylolisthesis. Gallstones [employer] Supervisor: [facility] Transcribe Date/Time: Dec 06 2020 3:05P Dictated by : WILNER HINOJOSA MD This examination was interpreted and the report reviewed and electronically signed by: WILNER HINOJOSA MD on Dec 06 2020 3:08PM [facility] DIVISION OF RADIOLOGY * * *Final [...] Anatomic Variants: None. DIVISION OF RADIOLOGY Provider, [facility] - 12/06/2020 * * *Final Report* * [...] findings with mild curvature. L4-5 spondylolisthesis. Gallstones [employer] Supervisor: [facility] Transcribe Date/Time: Dec 06 2020 3:05P Dictated by : WILNER HINOJOSA MD This examination was interpreted and the report reviewed and electronically signed by: WILNER HINOJOSA MD on Dec 06 2020 3:08PM [facility] XR Thoracic spine AP and Lat eralon [...] is only partially imaged. Further evaluation needed. [employer] Supervisor: [facility] Transcribe Date/Time: Dec 06 2020 3:05P Dictated by : BORA ELIAS MD This examination was interpreted and the report reviewed and electronically signed by: BORA ELIAS MD on Dec 06 2020 3:07PM [facility] DIVISION OF RADIOLOGY * * *Final [...] is only partially imaged. Further evaluation needed. [employer] Supervisor: PSCB Transcribe Date/Time: Dec 06 2020 3:05P Dictated by : BORA ELIAS MD This examination was interpreted and the report reviewed and electronically signed by: BORA ELIAS MD on Dec 06 2020 3:07PM [facility] XR Thoracic spine AP and Lat eralOrdered By: Ccf Provider on 12-06-2020 [facility] CULTURE URINEon 09-15-2020 CULTURE URINE 1 Organism Pseudomon as aeruginosa 10,000-50,000 CFU/ml 1 Organism Antibiotic Result Intrp Cefepime(VESTA) 2 S Pip/Tazobactam(VESTA) 8 S Meropenem(VESTA) <= 0.25 S Ciprofloxacin(VESTA) <= 0.25 S Gentamicin(VESTA) <= 1 S Amikacin(VESTA) <= 2 S Normal [facility] Comment on above: Performed By: #### C /UR #### [address] Basic Metabolic Panelon 12-2 Calcium [Mass/Vol] 9.2 mg/dL Normal 8.4-10.4 [facility] Comment on above: Performed By: #### B NP3, TROPN, LACT3, BMP3 #### [address] Glucose [Mass/Vol] 113 mg/dL High 70-100 [facility] Comment on above: Performed By: #### B NP3, TROPN, LACT3, BMP3 #### [address] Anion Gap 6 Normal [facility] Comment on above: Performed By: #### B NP3, TROPN, LACT3, BMP3 #### [address] CO2 [Moles/Vol] 29 mmol/L Normal 22-30 [facility] Comment on above: Performed By: #### B NP3, TROPN, LACT3, BMP3 #### [address] Creatinine [Mass/Vol] 0.77 mg/dL Normal 0.52-1.25 [facility] Comment on above: Performed By: #### B NP3, TROPN, LACT3, BMP3 #### [address] GFR/1.73 sq M.predicted among blacks MDRD (S/P/Bld) [Vol rate/Area] 86.4 mL/min/{1.73_m2} Normal >60 [facility] Comment on above: Performed By: #### B NP3, TROPN, LACT3, BMP3 #### [facility] [address] [id number] GFR/1.73 sq M.predicted among non-blacks MDRD (S/P/Bld) [Vol rate/Area] 74.6 mL/min/{1.73_m2} Normal >60 [facility] Comment on above: Result Comment: KDIG O [...] #### B NP3, TROPN, LACT3, BMP3 #### [facility] [address] Urea nitrogen [Mass/Vol] 15 mg/dL Normal 7-20 [facility] Comment on above: Performed By: #### B NP3, TROPN, LACT3, BMP3 #### [facility] [address] Chloride [Moles/Vol] 102 mmol/L Normal 98-107 [facility] Comment on above: Performed By: #### B NP3, TROPN, LACT3, BMP3 #### [facility] [address] Potassium [Moles/Vol] 4.5 mmol/L Normal 3.5-5.1 [facility] Comment on above: Performed By: #### B NP3, TROPN, LACT3, BMP3 #### [facility] [address] [place] Sodium [Moles/Vol] 138 mmol/L Normal 135-145 [facility] Comment on above: Performed By: #### B NP3, TROPN, LACT3, BMP3 #### [facility] [address] [place] Anion gap [Moles/Vol] 6 mmol/L [place], [place] Calcium [Mass/Vol] 9.2 mg/dL 8.4 - 10. 4 mg/dL [place], [place] Chloride [Moles/Vol] 102 mmol/L 98 - 10 7 mmol/L [place] CO2 [Moles/Vol] 29 mmol/L 22 - 30 mmol/L [place] Creatinine [Mass/Vol] 0.77 mg/dL 0.52 - 1.25 mg/dL [place] EGFR IF NonAfrican [place] 74.6 mL/min >60 [place], [place] Comment on above: KDIGO guidelines pro [...] MDRD (S/P/Bld) [Vol rate/Area] 86.4 mL/min/{1.73_m2} >60 [place], [place] Glucose [Mass/Vol] 113 mg/dL High 70 - 100 mg/dL [place], [place] Interpretation and review of laboratory results Abnormal [place] Potassium [Moles/Vol] 4.5 mmol/L 3.5 - 5.1 mmol/L [place] Sodium [Moles/Vol] 138 mmol/L 135 - 145 mmol/L [place] Urea nitrogen [Mass/Vol] 15 mg/dL 7 - 20 mg/dL [place] Test Performed by [facility], [address] [place] [address] [place], [place] Brain Natriuretic Peptideon 09-13-2020 Interpretation and review of laboratory results Abnormal [place], [place] Natriuretic peptide B (Bld) [Mass/Vol] 1195 pg/mL High 0 - 450 pg/mL [place], [place] COVID and Resp PCR Panelon 1 11-14-2019 SARS-CoV-2 (COVID-19) RNA ANALI+probe Ql (Unsp spec) COVID and Resp PCR Panel --> Status: F NEGATIVE: No targets were detected by the [facility] Upper Respiratory Pathogens PCR Panel. _ Expected Result: Not Detected The [employer] Upper Respiratory Pathogens PCR Panel can detect [...] management decisions. This assay was developed by [employer] and distributed under an Emergency Use Authorization (EUA) granted by the FDA for the qualitative detection of SARS-CoV-2 nucleic acid. Provider and patient fact sheets can be found at https://www.fda.gov/me nancy/707404/download and https://www.fda.gov/me nancy/095071/download. Respiratory Pathogens PCR Panel. _ Expected Result: Not Detected The [facility] Upper Respiratory Pathogens PCR Panel can detect [...] management decisions. This assay was developed by [employer] and distributed under an Emergency Use Authorization (EUA) granted by the FDA for the qualitative detection of SARS-CoV-2 nucleic acid. Provider and patient fact sheets can be found at https://www.[facility].gov/wi nancy/175113/download and https://www.[facility].gov/wi nancy/212722/download. Normal [facility] Comment on above: Performed By: #### H [facility] #### [facility] [address] [place] [phone] CR Chest Portableon 09-13-20 20 CR Chest Portable Patient Name: LISA UP Diagnostic Radiology ACCESSION EXAM DATE/TIME PROCEDURE ORDERING PROVIDER [id number] 09/13/2020 14:02 EST CR Chest Portable MD KIERSTEN, WILNER Parks CPT code 71607 Reason For Exam (CR Chest Portable) cough [...] Transcribed Date and Time: 09/13/2020 1:28 Normal [facility] Complete Urinalysison 2019 Appearance (U) Clear Normal Clear [facility] Comment on above: Result Comment: . Performed By: #### C UA2 #### [facility] [address] [place], [place] Bilirubin,Urine Negative Normal Negative [facility] Comment on above: Result Comment: . Performed By: #### C UA2 #### [place] [address] [address] [place], [place] Color (U) Yellow Normal Lt. Yellow [facility] Comment on above: Result Comment: . Performed By: #### C UA2 #### [place] [address] [address] [place], [place] Glucose Ql (U) Normal Normal Normal (<70) [facility] Comment on above: Result Comment: . Performed By: #### C UA2 #### [place] [address] [address] [place], [place] Ketone,Urine Negative Normal Negative [facility] Comment on above: Result Comment: . Performed By: #### C UA2 #### [place] [address] [address] [place], [place] Leukocytes,Urine Negative Normal Negative [facility] Comment on above: Result Comment: . Performed By: #### C UA2 #### [place] [address] [address] [place], [place] Nitrites,Urine Negative Normal Negative [facility] Comment on above: Result Comment: . Performed By: #### C UA2 #### [place] [address] [address] [place], [place] Occult Blood,Urine Negative Normal Negative [facility] Comment on above: Result Comment: . Performed By: #### C UA2 #### [place] [address] [address] [place], [place] pH,Urine 7.5 Normal 5.0-8.0 [facility] Comment on above: Result Comment: . Performed By: #### C UA2 #### [facility] [address] [place], [place] Specific [place],Urine 1.014 Normal 1.005 - 1.030 [facility] [employer] Comment on above: Result Comment: . Performed By: #### C UA2 #### [facility] [address] [place], [place] Total Protein,Urine Negative Normal Negative [facility] [employer] Comment on above: Result Comment: . Performed By: #### C UA2 #### [facility] [address] [place], [place] Urobilinogen,Urine Normal Normal Normal (0-1) [facility] [employer] Comment on above: Result Comment: . Performed By: #### C UA2 #### [facility] [address] [place], [place] ED Provider Noteon 0 ED Provider Note Emergency Department Encounter [facility] EM[facility]GENCY [facility] Patient: Lisa Up : 1945 Date of Evaluation: 09/13/2020 ED Provider: WILNER FERRER MD As the [id number], I performed a medical screening history and [...] [employer] Wilner Ferrer MD 09/13/20 1156 [facility] ED Provider Note [facility] EMERGENCY DEPT EMERGENCY DEPARTMENT ENCOUNTER Pt Name: [...] Smokeless t (more content not included)... Normal [facility] Hemogram (CBC) w/Auto Diffon 09-13-2020 Absolute Baso # 0.0 10*3/uL 0 - 0.2 10*3/uL [place], [place] Absolute Neut # 3.6 10*3/uL 1.8 - 7 10*3/uL [place] Basophils/100 WBC (Bld) 0.7 % 0 - 2 % [place] Eosinophils (Bld) [#/Vol] 0.3 10*3/uL 0 - 0.5 10*3/uL [place] Eosinophils/100 WBC (Bld) 5.3 % 1 - 6 % [place] Erythrocyte distribution width (RBC) [Ratio] 13.7 % 11.5 - 14.5 % [place] Granulocytes/100 WBC (Bld) 65.5 % 40 - 80 % [place] Hematocrit (Bld) [Volume fraction] 37.4 % 35 - 47 % [place] Hemoglobin (Bld) [Mass/Vol] 12.2 g/dL 11.7 - 16 g/dL [place] Lymphocytes (Bld) [#/Vol] 1.2 10*3/uL 1 - 4.3 10*3/uL [place] Lymphocytes/100 WBC (Bld) 22.4 % 20 - 40 % [place] MCH (RBC) [Entitic mass] 30.3 pg 26 - 34 pg [place] MCHC (RBC) [Mass/Vol] 32.6 % 32 - 36 % [place] MCV (RBC) [Entitic vol] 92.8 fL 79 - 98 fL [place], [place] Monocytes (Bld) [#/Vol] 0.3 10*3/uL 0 - 0.8 10*3/uL [place] Monocytes/100 WBC (Bld) 6.1 % 2 - 10 % [place] Platelet mean volume (Bld) [Entitic vol] 7.7 fL 7.4 - 10.4 fL [place] Platelets (Bld) [#/Vol] 186 10*3/uL 140 - 440 10*3/uL [place] RBC (Bld) [#/Vol] 4.03 10*6/uL 3.8 - 5.2 10*6/uL [place] WBC (Bld) [#/Vol] 5.4 10*3/uL 3.6 - 10.7 10*3/uL [place] Test Performed by [facility], [address] [place] [address] [place], [place] Hemogram w/ Autodiffon 09-13 Abs Baso Cnt 0.0 10*3/uL Normal 0.0-0.2 [facility] Comment on above: Performed By: #### H EMDF #### [address] Abs Neutrophile Cnt 3.6 10*3/uL Normal 1.8-7.0 [facility] Comment on above: Performed By: #### H EMDF #### [address] Basophils/100 WBC (Bld) 0.7 % Normal 0.0-2.0 [facility] Comment on above: Performed By: #### H EMDF #### [address] Eosinophils (Bld) [#/Vol] 0.3 10*3/uL Normal 0.0-0.5 [facility] Comment on above: Performed By: #### H EMDF #### [address] Eosinophils/100 WBC (Bld) 5.3 % Normal 1.0-6.0 [facility] Comment on above: Performed By: #### H EMDF #### [address] [address] [place] Erythrocyte distribution width (RBC) [Ratio] 13.7 % Normal 11.5-14.5 [facility] Comment on above: Performed By: #### H EMDF #### [address] [address] [place] [place], [place] Granulocytes/100 WBC (Bld) 65.5 % Normal 40.0-80.0 [facility] Comment on above: Performed By: #### H EMDF #### [address] [address] [place] Hematocrit (Bld) [Volume fraction] 37.4 % Normal 35.0-47.0 [facility] Comment on above: Performed By: #### H EMDF #### [address] [address] [address] [place], [place] Hemoglobin (Bld) [Mass/Vol] 12.2 g/dL Normal 11.7-16.0 [facility] Comment on above: Performed By: #### H EMDF #### [address] [address] [place] Lymphocytes (Bld) [#/Vol] 1.2 10*3/uL Normal 1.0-4.3 [facility] Comment on above: Performed By: #### H EMDF #### [address] [address] [address] [place], [place] Lymphocytes/100 WBC (Bld) 22.4 % Normal 20.0-40.0 [facility] Comment on above: Performed By: #### H EMDF #### [address] MCH (RBC) [Entitic mass] 30.3 pg Normal 26.0-34.0 [facility] Comment on above: Performed By: #### H EMDF #### [address] [address] [address] [place] MCHC 32.6 % Normal 32.0-36.0 [facility] Comment on above: Performed By: #### H EMDF #### [facility] [address] [place], [place] MCV (RBC) [Entitic vol] 92.8 fL Normal 79.0-98.0 [facility] Comment on above: Performed By: #### H EMDF #### [facility] [address] [place], [place] Monocytes (Bld) [#/Vol] 0.3 10*3/uL Normal 0.0-0.8 [facility] Comment on above: Performed By: #### H EMDF #### [facility] [address] [place], [place] Monocytes/100 WBC (Bld) 6.1 % Normal 2.0-10.0 [facility] Comment on above: Performed By: #### H EMDF #### [address] [address] [place] [place], [place] Platelet mean volume (Bld) [Entitic vol] 7.7 fL Normal 7.4-10.4 [facility] Comment on above: Performed By: #### H EMDF #### [address] [address] [address] [place], [place] Platelets (Bld) [#/Vol] 186 10*3/uL Normal 140-440 [facility] Comment on above: Performed By: #### H EMDF #### [facility] [address] [place], [place] RBC (Bld) [#/Vol] 4.03 10*6/uL Normal 3.80-5.20 [facility] Comment on above: Performed By: #### H EMDF #### [address] [address] [address] [place], [place] WBC (Bld) [#/Vol] 5.4 10*3/uL Normal 3.6-10.7 [facility] Comment on above: Performed By: #### H EMDF #### [address] [address] [address] [place], [place] Lactic Acidon 09-13-2020 Lactate [Moles/Vol] 1.6 mmol/L Normal 0.7-2.0 [facility] Comment on above: Performed By: #### B NP3, TROPN, LACT3, BMP3 #### [facility] [address] [address] Lactic Acid, Plasmaon 2019 Lactate [Moles/Vol] 1.6 mmol/L 0.7 - 2 mmol/L [place], [place] Test Performed by [facility], [address] [place] [id number] [place] [address] NT pro BNPon 09-13-2020 Natriuretic peptide B (Bld) [Mass/Vol] 1195 pg/mL High 0-450 [facility] Comment on above: Performed By: #### B NP3, TROPN, LACT3, BMP3 #### [facility] [address] [address] Otheron 09-13-2020 Test Performed by [facility] [id number] [place] [address] Respiratory Panel, Molecular , with COVID-19 (Restricted: peds pts or suitable admitted adults)on 09-13-2020 Respiratory Panel Molecular, with COVID NEGATIVE: No targets were detected by the [facility] Upper Respiratory Pathogens PCR Panel. _ Expected Result: Not Detected [employer] Upper Respiratory Pathogens PCR Panel can detect [...] management decisions. This assay was developed by [employer] and distributed under an Emergency Use Authorization (EUA) granted by the FDA for the qualitative detection of SARS-CoV-2 nucleic acid. Provider and patient fact sheets can be found at https://www.[facility].gov/wi nancy/502194/download and https://www.[facility].gov/wi nancy/361074/download. [place], [place] Test Performed by [facility], [address] [place] [address] [place] Troponinon 09-13-2020 Troponin I.cardiac [Mass/Vol] ng/mL 0 - 0.034 ng/mL [place], [place] Comment on above: . Troponin Ion 09-13-2020 Troponin I.cardiac [Mass/Vol] ng/mL Normal 0.000-0.034 [facility] Comment on above: Result Comment: . Performed By: #### B NP3, TROPN, LACT3, BMP3 #### [address] [address] Urinalysison 09-13-2020 Appearance (U) Clear Clear NA [place], [place] Comment on above: . Bilirubin Urine Negative Negative mg/dL [place] Comment on above: . Color (U) Yellow Lt. Yellow NA [place] Comment on above: . Glucose, Ur Normal Normal (<70) mg/dL [place], [place] Comment on above: . Ketones Ql (U) Negative Negative mg/dL [place] Comment on above: . LEUKOCYTES, UA Negative Negative Nolvia/uL [place] Comment on above: . Nitrite, Urine Negative Negative [place] Comment on above: . Occult Blood,Urine Negative Negative mg/dL [place] Comment on above: . pH (U) 7.5 [pH] [place] Comment on above: . Protein (U) [Mass/Vol] Negative Negat hawa mg/dL [place] Comment on above: . Specific [place], Urine 1.014 [place] Comment on above: . Urobilinogen, Urine Normal Normal (0-1) mg/dL [place] Comment on above: . Test Performed by [facility], [address] [place] [address] [place] XR CHEST PORTABLEon 09-13-20 Patient Name: LISA UP Diagnostic Radiology ACCESSION EXAM DATE/TIME PROCEDURE ORDERING PROVIDER [id number] 09/13/2020 14:02 EST CR Chest Portable MD FERRER MARK D CPT code 16224 Reason For Exam (CR Chest Portable) cough [...] R Transcribed Date and Time: 09/13/2020 1:28 [place], [place] Cielo Blood Incoming Radiology Results From [facility] - 09/13/2020 2:02 PM EST Patient Name: LISA UP Diagnostic Radiology ACCESSION EXAM DATE/TIME PROCEDURE ORDERING PROVIDER [id number] 09/13/2020 14:02 EST CR Chest Portable MD FERRER MARK D CPT code 83204 Reason For Exam (CR Chest Portable) cough [...] R Transcribed Date and Time: 09/13/2020 1:28 [place] CULTURE URINEon 09-08-2020 CULTURE URINE 1 Organism [...] 1 S Amikacin(VESTA) <= 2 S Normal [facility] Comment on above: Performed By: #### H GENARO [facility] #### [facility] [address] [place] [address] CR Chest Portableon 09-06-20 20 CR Chest Portable Patient Name: LISA UP Diagnostic Radiology ACCESSION EXAM DATE/TIME PROCEDURE ORDERING PROVIDER [id number] 09/06/2020 17:28 EST CR Chest Portable MD CASTORENA JESSE CPT code 74560 Reason For Exam (CR Chest Portable) Fever [...] Transcribed Date and Time: 09/06/2020 5:19 Normal [facility] Comp Metabolic Panelon 09-06 ALT [Catalytic activity/Vol] 10 U/L Normal 0-34 [facility] Comment on above: Result Comment: The ALT test is performed by an updated assay method. Please note that the reference intervals have been changed and are now sex specific. Performed By: #### H GILDA LAM3 #### [facility] [address] [place], [place] Calcium [Mass/Vol] 8.9 mg/dL Normal 8.4-10.4 [facility] Comment on above: Performed By: #### H GILDA LAM3 #### [facility] [address] [place], [place] Glucose [Mass/Vol] 120 mg/dL High 70-100 [facility] Comment on above: Performed By: #### H GILDA LAM3 #### [facility] [address] [place], [place] ALP [Catalytic activity/Vol] 64 U/L Normal 38-126 [facility] Comment on above: Performed By: #### H GILDA LAM3 #### [facility] [address] [place], [place] Anion Gap 8 Normal [facility] Comment on above: Performed By: #### H GILDA LAM3 #### [facility] [address] [place], [place] AST [Catalytic activity/Vol] 32 U/L Normal 15-46 [facility] Comment on above: Performed By: #### H EMDF, CMP3 #### [facility] [address] [place], [place] Bilirubin [Mass/Vol] 0.8 mg/dL Normal 0.2-1.3 [facility] Comment on above: Performed By: #### H EMDF, CMP3 #### [facility] [address] [place], [place] CO2 [Moles/Vol] 27 mmol/L Normal 22-30 [facility] Comment on above: Performed By: #### H EMDF, CMP3 #### [facility] [address] [place], [place] Creatinine [Mass/Vol] 0.69 mg/dL Normal 0.52-1.25 [facility] Comment on above: Performed By: #### H EMDF, CMP3 #### [facility] [address] [place], [place] GFR/1.73 sq M.predicted among blacks MDRD (S/P/Bld) [Vol rate/Area] mL/min/{1.73_m2} Normal >60 [facility] Comment on above: Performed By: #### H EMDF, CMP3 #### [facility] [address] [place], [place] GFR/1.73 sq M.predicted among non-blacks MDRD (S/P/Bld) [...] Performed By: #### H GILDA LAM3 #### [facility] [address] [place] [address] Protein [Mass/Vol] 6.8 g/dL Normal 6.3-8.2 [facility] Comment on above: Performed By: #### H GILDA LAM3 #### [address] [place] [address] Urea nitrogen [Mass/Vol] 15 mg/dL Normal 7-20 [facility] Comment on above: Performed By: #### H GILDA LAM3 #### [address] [place] [address] Potassium [Moles/Vol] 3.5 mmol/L Normal 3.5-5.1 [facility] Comment on above: Performed By: #### H GILDA LAM3 #### [address] [place] [address] Sodium [Moles/Vol] 138 mmol/L Normal 135-145 [facility] Comment on above: Performed By: #### H GILDA LAM3 #### [address] [place] [address] Albumin [Mass/Vol] 3.3 g/dL Low 3.5-5.0 [facility] Comment on above: Performed By: #### H GILDA LAM3 #### [address] [address] [place] Chloride [Moles/Vol] 104 mmol/L Normal 98-107 [facility] Comment on above: Performed By: #### H GILDA LAM3 #### [address] [place] [address] Complete Urinalysison 2019 Appearance (U) Turbid Abnormal Clear [facility] Comment on above: Result Comment: . Performed By: #### C UA2 #### [address] [address] [place], [place] Bacteria Moderate Abnormal Negative [facility] Comment on above: Result Comment: . Performed By: #### C UA2 #### [address] [address] [place], [place] Bilirubin,Urine Negative Normal Negative [facility] Comment on above: Result Comment: . Performed By: #### C UA2 #### [address] [address] [place], [place] Cast, Hyaline Negative Normal Negative [facility] Comment on above: Result Comment: . Performed By: #### C UA2 #### [address] [address] [place], [place] Color (U) Yellow Normal Lt. Yellow [facility] Comment on above: Result Comment: . Performed By: #### C UA2 #### [address] [address] [place], [place] Glucose Ql (U) Normal Normal Normal (<70) [facility] Comment on above: Result Comment: . Performed By: #### C UA2 #### [address] [address] [place], [place] Ketone,Urine Negative Normal Negative [facility] Comment on above: Result Comment: . Performed By: #### C UA2 #### [address] [address] [place], [place] Leukocytes,Urine 500 N[place]/uL Abnormal Negative [facility] Comment on above: Result Comment: . Performed By: #### C UA2 #### [address] [address] [place], [place] Mucous Threads Few Normal Negative [facility] Comment on above: Result Comment: . Performed By: #### C UA2 #### [address] [address] [place], [place] Nitrites,Urine Negative Normal Negative [facility] Comment on above: Result Comment: . Performed By: #### C UA2 #### [address] [address] [place], [place] Non-Squamous Epithelial 1 /[HPF] Abnormal Negative [facility] Comment on above: Result Comment: . Performed By: #### C UA2 #### [address] [address] [place] Occult Blood,Urine 0.2 mg/dL Abnormal Negative [facility] Comment on above: Result Comment: . Performed By: #### C UA2 #### [address] [address] [place], [place] pH,Urine 6.5 Normal 5.0-8.0 [facility] Comment on above: Result Comment: . Performed By: #### C UA2 #### [address] [address] [place], [place] Protein (U) [Mass/Vol] 50 mg/dL Abnormal Negative [facility] Comment on above: Result Comment: . Performed By: #### C UA2 #### [address] [address] [place], [place] RBC, Urine 6 - 10 Abnormal 0-2 [facility] Comment on above: Result Comment: . Performed By: #### C UA2 #### [address] [address] [place] Specific [place],Urine 1.023 Normal 1.005 - 1.030 [facility] Comment on above: Result Comment: . Performed By: #### C UA2 #### [address] [place] Squamous Epithelial 6 - 10 Abnormal 3-5 [facility] Comment on above: Result Comment: . Performed By: #### C UA2 #### [address] [place] Urobilinogen,Urine Normal Normal Normal (0-1) [facility] Comment on above: Result Comment: . Performed By: #### C UA2 #### [address] [place], [place] WBC LM.HPF (Urine sed) [#/Area] /[HPF] Abnormal 0-5 [facility] Comment on above: Result Comment: . Performed By: #### C UA2 #### [address] [address] [place], [place] Comprehensive Metabolic Pane steffi 12-16-2020 Albumin [Mass/Vol] 3.3 g/dL Low 3.5 - 5 g/dL [place] ALP [Catalytic activity/Vol] 64 U/L 38 - 126 U/L [place] ALT [Catalytic activity/Vol] 10 U/L 0 - 34 U/L [place] Comment on above: The ALT test is perf ormed by an updated assay method. Please note that the reference intervals have been changed and are now sex specific. Anion gap [Moles/Vol] 8 mmol/L [place], [place] AST [Catalytic activity/Vol] 32 U/L 15 - 46 U/L [place] Bilirubin Ql (U) 0.8 mg/dL 0.2 - 1.3 mg/dL [place] Calcium [Mass/Vol] 8.9 mg/dL 8.4 - 10. 4 mg/dL [place] Chloride [Moles/Vol] 104 mmol/L 98 - 10 7 mmol/L [place] CO2 [Moles/Vol] 27 mmol/L 22 - 30 mmol/L [place] Creatinine [Mass/Vol] 0.69 mg/dL 0.52 - 1.25 mg/dL [place] EGFR IF NonAfrican [place] 84.1 mL/min >60 [place] Comment on above: KDIGO guidelines pro [...] MDRD (S/P/Bld) [Vol rate/Area] mL/min/{1.73_m2} >60 mL/min [place] Glucose [Mass/Vol] 120 mg/dL High 70 - 100 mg/dL [place] Interpretation and review of laboratory results Abnormal [place] Potassium [Moles/Vol] 3.5 mmol/L 3.5 - 5.1 mmol/L [place] Protein [Mass/Vol] 6.8 g/dL 6.3 - 8.2 g/dL [place] Sodium [Moles/Vol] 138 mmol/L 135 - 145 mmol/L [place] Urea nitrogen [Mass/Vol] 15 mg/dL 7 - 20 mg/dL [place] Test Performed by [facility], [address] [place] [id number] [place] [address] ED Provider Noteon 0 ED Provider Note Emergency Department Encounter [facility] EMERGENCY DEPT Patient: Lisa Up : 1945 [...] urinary symptoms. Patient states she was at [facility] on Friday, she was there [...] [employer] Enrico Castorena MD 09/06/20 1609 [facility] ED Provider Note [facility] EM[facility]GENCY DEPT EMERGENCY DEPARTMENT ENCOUNTER Pt Name: [...] Patient states she has been seen at [facility] twice for these symptoms. Patient was [...] otherwise acutely negative except as in the [facility]. PAST MEDICAL HISTORY Past Medical History: Diagnosis [...] together: Not (more content not included)... Normal [facility] Hemogram (CBC) w/Auto Diffon 09-06-2020 Absolute Baso # 0.0 10*3/uL 0 - 0.2 10*3/uL [place], [place] Absolute Neut # 5.9 10*3/uL 1.8 - 7 10*3/uL [place] Basophils/100 WBC (Bld) 0.2 % 0 - 2 % [place] Eosinophils (Bld) [#/Vol] 0.6 10*3/uL High 0 - 0.5 10*3/uL [place] Eosinophils/100 WBC (Bld) 6.5 % High 1 - 6 % [place] Erythrocyte distribution width (RBC) [Ratio] 13.7 % 11.5 - 14.5 % [place] Granulocytes/100 WBC (Bld) 68.1 % 40 - 80 % [place] Hematocrit (Bld) [Volume fraction] 38.9 % 35 - 47 % [place] Hemoglobin (Bld) [Mass/Vol] 12.7 g/dL 11.7 - 16 g/dL [place] Interpretation and review of laboratory results Abnormal [place] Lymphocytes (Bld) [#/Vol] 1.8 10*3/uL 1 - 4.3 10*3/uL [place] Lymphocytes/100 WBC (Bld) 20.1 % 20 - 40 % [place] MCH (RBC) [Entitic mass] 30.5 pg 26 - 34 pg [place] MCHC (RBC) [Mass/Vol] 32.7 % 32 - 36 % [place] MCV (RBC) [Entitic vol] 93.2 fL 79 - 98 fL [place], [place] Monocytes (Bld) [#/Vol] 0.4 10*3/uL 0 - 0.8 10*3/uL [place], [place] Monocytes/100 WBC (Bld) 5.1 % 2 - 10 % [place] Platelet mean volume (Bld) [Entitic vol] 7.4 fL 7.4 - 10.4 fL [place] Platelets (Bld) [#/Vol] 216 10*3/uL 140 - 440 10*3/uL [place] RBC (Bld) [#/Vol] 4.17 10*6/uL 3.8 - 5.2 10*6/uL [place] WBC (Bld) [#/Vol] 8.7 10*3/uL 3.6 - 10.7 10*3/uL [place] Test Performed by [facility], [address] [place] [id number] [place] Hemogram w/ Autodiffon 09-06 Abs Baso Cnt 0.0 10*3/uL Normal 0.0-0.2 [facility] Comment on above: Performed By: #### H EMDF, CMP3 #### [facility] [address] [place], [place] Abs Neutrophile Cnt 5.9 10*3/uL Normal 1.8-7.0 [facility] Comment on above: Performed By: #### H EMDF, CMP3 #### [facility] [address] [place], [place] Basophils/100 WBC (Bld) 0.2 % Normal 0.0-2.0 [facility] Comment on above: Performed By: #### H EMDF, CMP3 #### [address] [place], [place] Eosinophils (Bld) [#/Vol] 0.6 10*3/uL High 0.0-0.5 [facility] Comment on above: Performed By: #### H EMDF CMP3 #### [address] [place] Eosinophils/100 WBC (Bld) 6.5 % High 1.0-6.0 [facility] Comment on above: Performed By: #### H EMDF CMP3 #### [address] [address] [place] Erythrocyte distribution width (RBC) [Ratio] 13.7 % Normal 11.5-14.5 [facility] Comment on above: Performed By: #### H EMDF, CMP3 #### [facility] [address] [place], [place] Granulocytes/100 WBC (Bld) 68.1 % Normal 40.0-80.0 [facility] Comment on above: Performed By: #### H EMDF, CMP3 #### [address] Hematocrit (Bld) [Volume fraction] 38.9 % Normal 35.0-47.0 [facility] Comment on above: Performed By: #### H EMDF, CMP3 #### [address] [address] [place] Hemoglobin (Bld) [Mass/Vol] 12.7 g/dL Normal 11.7-16.0 [facility] Comment on above: Performed By: #### H GENARO CMP3 #### [address] [place] Lymphocytes (Bld) [#/Vol] 1.8 10*3/uL Normal 1.0-4.3 [facility] Comment on above: Performed By: #### H GENARO CMP3 #### [address] [place] Lymphocytes/100 WBC (Bld) 20.1 % Normal 20.0-40.0 [facility] Comment on above: Performed By: #### H GENARO CMP3 #### [address] [address] [place] MCH (RBC) [Entitic mass] 30.5 pg Normal 26.0-34.0 [facility] Comment on above: Performed By: #### H GENARO CMP3 #### [address] [place] MCHC 32.7 % Normal 32.0-36.0 [facility] Comment on above: Performed By: #### H GENARO CMP3 #### [address] [address] [place] MCV (RBC) [Entitic vol] 93.2 fL Normal 79.0-98.0 [facility] Comment on above: Performed By: #### H GENARO CMP3 #### [address] [place] Monocytes (Bld) [#/Vol] 0.4 10*3/uL Normal 0.0-0.8 [facility] Comment on above: Performed By: #### H GENARO CMP3 #### [address] Monocytes/100 WBC (Bld) 5.1 % Normal 2.0-10.0 [facility] Comment on above: Performed By: #### H GENARO CMP3 #### [address] [place] Platelet mean volume (Bld) [Entitic vol] 7.4 fL Normal 7.4-10.4 [facility] Comment on above: Performed By: #### H EMDF, CMP3 #### [facility] [address] [place], [place] Platelets (Bld) [#/Vol] 216 10*3/uL Normal 140-440 [facility] Comment on above: Performed By: #### H EMDAgatha, CMP3 #### [facility] [address] [place], [place] RBC (Bld) [#/Vol] 4.17 10*6/uL Normal 3.80-5.20 [facility] Comment on above: Performed By: #### H GENARO, CMP3 #### [facility] [address] [place], [place] WBC (Bld) [#/Vol] 8.7 10*3/uL Normal 3.6-10.7 [facility] Comment on above: Performed By: #### H EMDF, CMP3 #### [facility] [address] [place], [place] Urinalysison 09-06-2020 Appearance (U) Turbid Abnormal [place] Comment on above: . Bacteria, UA Moderate Abnormal Negative /[HPF] [place], [place] Comment on above: . Bilirubin Urine Negative Negative mg/dL [place] Comment on above: . Color (U) Yellow Lt. Yellow NA [place] Comment on above: . Glucose, Ur Normal Normal (<70) mg/dL [place] Comment on above: . Hyaline Casts, UA Negative Negative /[LPF] [place] Comment on above: . Interpretation and review of laboratory results Abnormal [place] Ketones Ql (U) Negative Negative mg/dL [place] Comment on above: . LEUKOCYTES, UA 500 Abnormal Negative [place]/uL [place] Comment on above: . Mucous Threads Few Negative /[LPF] [place] Comment on above: . Nitrite, Urine Negative Negative NA [place], [place] Comment on above: . Non-Squamous Epithelial 1 /[HPF] Abnormal Negative [place], [place] Comment on above: . Occult Blood,Urine 0.2 mg/dL Abnormal Negative [place] Comment on above: . pH (U) 6.5 [pH] [place] Comment on above: . Protein (U) [Mass/Vol] 50 mg/dL Abnormal Negative Me [place], [place] Comment on above: . RBC (U) [#/Vol] 6-10 Abnormal 0 - 2 /[HPF] [place], [place] Comment on above: . Specific [place], Urine 1.023 M [place], [place] Comment on above: . Squam Epithel, UA 6-10 Abnormal 3 - 5 /[HPF] [place], [place] Comment on above: . Urobilinogen, Urine Normal Normal (0-1) mg/dL [place], [place] Comment on above: . WBC, UA >100 Abnormal 0 - 5 /[HPF] [place], [place] Comment on above: . Test Performed by [facility], [address] [place] [id number] [place] [address] XR CHEST PORTABLEon 09-06-20 [facility] Incoming Radiology Results From [facility] 09/06/2020 5:28 PM EST Patient Name: LISA UP Diagnostic Radiology ACCESSION EXAM DATE/TIME PROCEDURE ORDERING PROVIDER [id number] 09/06/2020 17:28 EST CR Chest Portable MD CASTORENA JESSE CPT code 85675 Reason For Exam (CR Chest Portable) Fever [...] WILLIAM Transcribed Date and Time: 09/06/2020 5:[facility]: LISA UP Diagnostic Radiology ACCESSION EXAM DATE/TIME PROCEDURE ORDERING PROVIDER [id number] 09/06/2020 17:28 EST CR Chest Portable MD CASTORENA JESSE CPT code 66024 Reason For Exam (CR Chest Portable) Fever [...] WILLIAM Transcribed Date and Time: 09/06/2020 5:19 [place], [place] XR Chest PA and Lateralon IMPRESSION: Bilateral small pleural effusions. [employer] Supervisor: IVAN Transcribe Date/Time: Aug 30 2020 6:54P [...] in the spine. DIVISION OF RADIOLOGY Provider, [facility] Imagin g Sharon - 08/30/2020 * * *Final Report* * [...] spine. IMPRESSION IMPRESSION: Bilateral small pleural effusions. [employer] Supervisor: PSCB Transcribe Date/Time: Aug 30 2020 6:54P Dictated by : RICARDO HDEZ MD This examination was interpreted and the report reviewed and electronically signed by: RICARDO HDEZ MD on Aug 30 2020 6:56PM [facility] Radiology Study observation (narrative) [facility] Chest PA and LateralOrder ed By: [facility] Provider on 08-30-2020 [facility] Basic Panelon 05-02-2019 Calcium [Mass/Vol] 9.6 mg/dL Normal 8.5-10.1 [facility] Comment on above: Performed By: #### L P8 #### [place] [address] CO2 Blood 32 mEq/L Normal 21-32 [facility] Comment on above: Performed By: #### L P8 #### [place] [address] Creatinine [Mass/Vol] 0.63 mg/dL Normal 0.51-0.95 [facility] Comment on above: Performed By: #### L P8 #### [place] [address] Glucose [Mass/Vol] 111 mg/dL High 70-99 [facility] Comment on above: Performed By: #### L P8 #### [facility] [address] [place] [address] Urea nitrogen [Mass/Vol] 10 mg/dL Normal 7-18 [facility] Comment on above: Performed By: #### L P8 #### [place] [address] Chloride [Moles/Vol] 102 mmol/L Normal 98-109 [facility] Comment on above: Result Comment: Test ing performed on an Angelo i-STAT. Performed By: #### L P8 #### [place] [address] Potassium [Moles/Vol] 3.3 mmol/L Low 3.5-4.9 [facility] Comment on above: Result Comment: Test ing performed on an Angelo i-STAT. Performed By: #### L P8 #### [place] [address] Sodium [Moles/Vol] 141 mmol/L Normal 138-146 [facility] Comment on above: Result Comment: Test ing performed on an Angelo i-STAT. Performed By: #### L P8 #### [place] [address] Hemogram/Manual Diffon 05-02 Abs. Baso 0.09 thou/cmm High 0.00-0.08 [facility] Comment on above: Performed By: #### L MCBD #### [place] [address] Abs. Eosin 0.18 thou/cmm Normal 0.00-0.41 [facility] Comment on above: Performed By: #### L MCBD #### [place] [address] Abs. Lymph 3.78 thou/cmm High 1.50-3.65 [facility] Comment on above: Performed By: #### L MCBD #### [place] [address] Abs. Garland 0.79 thou/cmm Normal 0.20-1.00 [facility] Comment on above: Performed By: #### L MCBD #### [facility] [address] [place] [address] Abs. Neut (ANC) 3.96 thou/cmm Normal 3.00-5.67 [facility] Comment on above: Performed By: #### L MCBD #### [facility] [address] [place] [address] Anisocytosis Ql (Bld) Slight Normal [facility] Comment on above: Performed By: #### L MCBD #### [facility] [address] [place] [address] Atypical Lymph 15.0 % Normal [facility] Comment on above: Performed By: #### L MCBD #### [place] [address] Basophil 1.0 % Normal [facility] Comment on above: Performed By: #### L MCBD #### [facility] [address] [place] [address] Eosinophil 2.0 % Normal [facility] Comment on above: Performed By: #### L MCBD #### [facility] [address] [place] [address] Lymphocyte 28.0 % Normal [facility] Comment on above: Performed By: #### L MCBD #### [facility] [address] [place] [address] Monocyte 9.0 % Normal [facility] Comment on above: Performed By: #### L MCBD #### [facility] [address] [place] [address] Platelets (Bld) [#/Vol] Normal Normal [facility] Comment on above: Performed By: #### L MCBD #### [facility] [address] [place] [address] Seg Neutrophil 45.0 % Normal [facility] Comment on above: Performed By: #### L MCBD #### [place] [address] Toxic Granulation Few Normal [facility] Comment on above: Performed By: #### L MCBD #### [facility] [address] [place] [address] Diff Type Manual Diff Normal [facility] Comment on above: Performed By: #### L MCBD #### [facility] [address] [place] [address] Erythrocyte distribution width (RBC) [Ratio] 14.3 % Normal 11.5-15.9 [facility] Comment on above: Performed By: #### L MCBD #### [facility] [address] [place] [address] Hematocrit (Bld) [Volume fraction] 40.0 % Normal 37.0-47.0 [facility] Comment on above: Performed By: #### L MCBD #### [facility] [address] [place] [address] Hemoglobin (Bld) [Mass/Vol] 12.5 g/dL Normal 12.0-16.0 [facility] Comment on above: Performed By: #### L MCBD #### [facility] [address] [place] [address] MCH (RBC) [Entitic mass] 29.5 pg Normal 27.0-31.0 [facility] Comment on above: Performed By: #### L MCBD #### [facility] [address] [place] [address] MCHC (RBC) [Mass/Vol] 31.3 % Low 32.0-36.0 [facility] Comment on above: Performed By: #### L MCBD #### [facility] [address] [place] [address] MCV (RBC) [Entitic vol] 94.3 fl Normal 81.0-99.0 [facility] Comment on above: Performed By: #### L MCBD #### [facility] [address] [place] [address] Platelet mean volume (Bld) [Entitic vol] 9.6 fl Normal 7.1-10.5 [facility] Comment on above: Performed By: #### L MCBD #### [facility] [address] [place] [address] Platelets (Bld) [#/Vol] 212 thou/cmm Normal 150-400 [facility] Comment on above: Performed By: #### L MCBD #### [facility] [address] [place] [address] RBC (Bld) [#/Vol] 4.24 mil/cmm Normal 4.20-5.40 [facility] Comment on above: Performed By: #### L MCBD #### [facility] [address] [place] [address] WBC (Bld) [#/Vol] 8.8 thou/cmm Normal 4.8-10.5 [facility] Comment on above: Performed By: #### L MCBD #### [facility] [address] [place] [address] MDRD eGFRon 05-02-2019 GFR/1.73 sq M predicted among non-blacks MDRD (S/P/Bld) [Vol rate/Area] mL/min/{1.73_m2} Normal >60mL/min/[address] [facility] Comment on above: Result Comment: If t he patient is , multiply the result by 1.210. Performed By: #### L GFR #### [facility] [address] [place] [address] Macroscopic Urinalysison Appearance (U) CLEAR Normal [facility] Comment on above: Performed By: #### L MACU #### [facility] [address] [place] [address] Bilirubin Urine Negative Normal Negative [facility] Comment on above: Performed By: #### L MACU #### [facility] [address] [place] [address] Color (U) YELLOW Normal [facility] Comment on above: Performed By: #### L MACU #### [facility] [address] [place] [address] Glucose Ql (U) Negative Normal Negative [facility] Comment on above: Performed By: #### L MACU #### [facility] [address] [place] [address] Hemoglobin,Urine Negative Normal Negative [facility] Comment on above: Performed By: #### L MACU #### [facility] [address] [place] [address] Ketone Urine Negative Normal Negative [facility] Comment on above: Performed By: #### L MACU #### [place] [address] Leukocytes Esterase Negative Normal Negative [facility] Comment on above: Performed By: #### L MACU #### [facility] [address] [place] [address] Nitrites Urine Negative Normal Negative [facility] Comment on above: Performed By: #### L MACU #### [place] [address] pH (U) 7.0 [pH] Normal 5.0-8.0 [facility] Comment on above: Performed By: #### L MACU #### [place] [address] Protein (U) [Mass/Vol] Negative Normal Negative [facility] Comment on above: Performed By: #### L MACU #### [place] [address] Specific [place], Ur 1.020 Normal 1.005-1.030 [facility] Comment on above: Performed By: #### L MACU #### [place] [address] Urobilinogen,Ur 0.2 EU/dL Normal 0.2-1.0 [facility] Comment on above: Performed By: #### L MACU #### [place] [address] Troponin Ion 05-02-2019 Troponin I.cardiac [Mass/Vol] ng/mL Normal <=0.07 [facility] Comment on above: Performed By: #### L TRP #### [place] [address] UA Completeon 02-22-2018 UA Blood 1+ Abnormal Negative [facility] Comment on above: Performed By: #### 8 [id number] ####DEBORAH [facility] [address] [place] [address] UA Bacteria Trace Abnormal None [facility] Comment on above: Performed By: #### 8 [id number] ####DEBORAH [facility] [address] [place] [address] UA Clarity Clear Normal Clear [facility] Comment on above: Performed By: #### 8 [id number] ####DEBORAH [facility] [address] [place] [address] UA Leuk Est Trace Normal Negative [facility] Comment on above: Performed By: #### 8 [id number] ####DEBORAH [facility] [address] [place] [address] UA Nitrite Negative Normal Negative [facility] Comment on above: Performed By: #### 8 [id number] ####DEBORAH [facility] [address] [place] [address] UA pH 7.0 Normal 4.6-8.[address] [facility] Comment on above: Performed By: #### 8 [id number] ####DEBORAH [facility] [address] [place] [address] UA Protein Negative Normal Negative [facility] Comment on above: Performed By: #### 8 [id number] ####DEBORAH [facility] [address] [place] [address] UA Spec Grav 1.008 Normal 1.003-1.[address] [facility] Comment on above: Performed By: #### 8 [id number] ####DEBORAH [facility] [address] [place] [address] UA Squam Epithelial 0-5 Normal 0-5 [facility] Comment on above: Performed By: #### 8 [id number] ####DEBORAH [facility] [address] [place] [address] UA Urobilinogen Negative Normal [facility] Comment on above: Performed By: #### 8 [id number] ####DEBORAH [facility] [address] [place] [address] UA WBC 0-5 Normal 0-[address] [facility] Comment on above: Performed By: #### 8 [id number] ####DEBORAH [facility] [address] [place] [address] Urine, color Straw Normal Yellow [facility] Comment on above: Performed By: #### 8 [id number] ####DEBORAH Urinalysis [facility] [address] [place] [address] Urine, erythrocytes 0-3 Normal 0-3 [facility] Comment on above: Performed By: #### 8 [id number] ####DEBORAH Urinalysis [facility] [address] [place] [address] Urine, glucose Negative Normal Negative [facility] Comment on above: Performed By: #### 8 [id number] ####DEBORAH Ur[facility]ysis [facility] [address] [place] [address] Urine, ketones presence Negative Normal Negative [facility] Comment on above: Performed By: #### 8 [id number] ####DEBORAH Urinalysis [facility] [address] [place] [address] Urine, urobilinogen Negative Normal Negative [facility] Comment on above: Performed By: #### 8 [id number] ####DEBORAH Urinalysis Automated [address] [place] [address] EMERGENCY DEPARTMENT SUMMARY on 11-30-2017 EMERGENCY DEPARTMENT SUMMARY [facility] EMERGENCY DEPARTMENT SUMMARY NAME NUMBER SEX AGE ADMIT DISC TYPE MED.RECORD# ANNEL Snider [id number] 11/18/17 11/18/17 E.RAnnette [id number] ROOM:-D DATE OF :1945 PHYSICIAN NO.:[id number] PHYSICIAN NAME:EDUAR Alcantara M.D. PHYSICIAN:NO DOCTOR ON [...] Pavel Alcantara MD TD: 13:51 JOB #: [id number] Electronically signed by: EDUAR Alcantara M.D. 11/30/17 06:59 Transcribed by: genet 11/19/2017 12:39 Normal [facility] Bacteria identified Anaer cx Nom (Unsp spec) Anaerobic microbial culture No anaerobic bacteria isolated. [facility] Work Phone: Bacteria identified Cx Nom ( Wound) Wound Culture Klebsiella pneumonia e sp pneum [facility] Work Phone: Gram stain for investigation of transfusion reaction Microscopic observation Gram stain Nom (Unsp spec) [facility] Work Phone: No Panel Information [facility] Vital Signs Date Time Vital Sign Value Performing Clinician Facility 05-10-2025 13:12-0400 Diastolic blood pressure 80 mm[Hg] Judith Suppan ROLL CUTTING OPERATOR.COMPENSATION ASSOCIATE Work Phone: [facility] 05-10-2025 13:12-0400 Systolic blood pressure 148 mm[Hg] Judith Suppan ROLL CUTTING OPERATOR.COMPENSATION ASSOCIATE Work Phone: [facility] 05-10-2025 12:49-0400 Body mass index (BMI) [Ratio] 45.36 kg/m2 Judith Suppan ROLL CUTTING OPERATOR.COMPENSATION ASSOCIATE Work Phone: [facility] 05-10-2025 12:49-0400 Body weight 112.49 kg Judith Suppan ROLL CUTTING OPERATOR.COMPENSATION ASSOCIATE Work Phone: [facility] 05-10-2025 12:49-0400 Heart rate 61 /min Judith Suppan ROLL CUTTING OPERATOR.COMPENSATION ASSOCIATE Work Phone: [facility] 05-10-2025 12:49-0400 SaO2% (BldA) [Mass fraction] 97 % Judith Suppan ROLL CUTTING OPERATOR.COMPENSATION ASSOCIATE Work Phone: [facility] 05-10-2025 09:00-0400 Diastolic blood pressure 83 mm[Hg] Elida O'Jamel PT [facility] 05-10-2025 09:00-0400 Heart rate 65 /min Elida O'Jamel PT [facility] 05-10-2025 09:00-0400 SaO2% (BldA) [Mass fraction] 96 % Elida O'Jamel PT [facility] 05-10-2025 09:00-0400 Systolic blood pressure 176 mm[Hg] Elida O'Jamel PT [facility] 04-15-2025 11:58-0400 Diastolic blood pressure 78 mm[Hg] Judith Suppan ROLL CUTTING OPERATOR.COMPENSATION ASSOCIATE Work Phone: [facility] 04-15-2025 11:58-0400 Systolic blood pressure 136 mm[Hg] Judith Suppan ROLL CUTTING OPERATOR.COMPENSATION ASSOCIATE Work Phone: [facility] 04-15-2025 11:24-0400 Body mass index (BMI) [Ratio] 45.54 kg/m2 Judith Suppan ROLL CUTTING OPERATOR.COMPENSATION ASSOCIATE Work Phone: [facility] 04-15-2025 11:24-0400 Body weight 112.95 kg Judith Suppan ROLL CUTTING OPERATOR.COMPENSATION ASSOCIATE Work Phone: [facility] 04-15-2025 11:24-0400 Heart rate 69 /min Judith Suppan ROLL CUTTING OPERATOR.COMPENSATION ASSOCIATE Work Phone: [facility] 04-15-2025 11:24-0400 SaO2% (BldA) [Mass fraction] 99 % Judith Suppan ROLL CUTTING OPERATOR.COMPENSATION ASSOCIATE Work Phone: [facility] 04-05-2025 16:23-0400 Body temperature 98.1 [degF] Dr. Sylvia Lizama MD Work Phone: [facility] 04-05-2025 16:23-0400 Diastolic blood pressure 56 mm[Hg] Dr. Sylvia Lizama MD Work Phone: [facility] 04-05-2025 16:23-0400 Heart rate 64 /min Dr. Sylvia Lizama MD Work Phone: [facility] 04-05-2025 16:23-0400 Respiratory rate 17 /min Dr. Sylvia Lizama MD Work Phone: [facility] 04-05-2025 16:23-0400 SaO2% (BldA) [Mass fraction] 98 % Dr. Sylvia Lizama MD Work Phone: [facility] 04-05-2025 16:23-0400 Systolic blood pressure 120 mm[Hg] Dr. Sylvia Lizama MD Work Phone: 6(882)453-238137 [place] [address] 04-05-2025 15:39-0400 Body mass index (BMI) [Ratio] 44.4 kg/m2 Dr. Sylvia Lizama MD Work Phone: 1(317)754-739637 [place] [address] 04-02-2025 11:22-0400 Body height 157.[address] Sylvia Lizama MD Work Phone: 0(495)006-545737 [place] [address] 04-02-2025 11:22-0400 Body weight 110.[address] Sylvia Lizama MD Work Phone: 4(785)549-515737 [place] [address] 04-01-2025 18:00-0400 Diastolic blood pressure 71 mm[Hg] Dr. Sylvia Lizama MD Work Phone: 1(391)810-687937 [place] [address] 04-01-2025 18:00-0400 Heart rate 70 /min Dr. Sylvia Lizama MD Work Phone: 5(895)797-612837 [place] [address] 04-01-2025 18:00-0400 Respiratory rate 15 /min Dr. Sylvia Lizama MD Work Phone: 1(234)858-495937 [place] [address] 04-01-2025 18:00-0400 SaO2% (BldA) [Mass fraction] 97 % Dr. Sylvia Lizama MD Work Phone: 8(061)014-934737 [place] [address] 04-01-2025 18:00-0400 Systolic blood pressure 167 mm[Hg] Dr. Sylvia Lizama MD Work Phone: 9(757)824-034737 [place] [address] 04-01-2025 17:35-0400 Body temperature 98 [degF] Dr. Sylvia Lizama MD Work Phone: 9(764)865-843337 [place] [address] 04-01-2025 15:08-0400 Body mass index (BMI) [Ratio] 43.9 kg/m2 Dr. Sylvia Lizama MD Work Phone: 5(697)328-610337 [place] [address] 04-01-2025 15:08-0400 Body weight [address] Sylvia Lizama MD Work Phone: 7(425)009-696637 [place] [address] 04-01-2025 12:34-0400 Body height 157.[address] Sylvia Lizama MD Work Phone: [facility] 03-22-2025 10:05-0400 Body mass index (BMI) [Ratio] 44.99 kg/m2 Asad Deras Work Phone: [facility] 03-22-2025 10:05-0400 Body temperature 98.2 [degF] Asad Deras Work Phone: [facility] 03-22-2025 10:05-0400 Body weight 111.58 kg Asad Deras Work Phone: [facility] 03-22-2025 10:05-0400 Diastolic blood pressure 78 mm[Hg] Asad Deras Work Phone: [facility] 03-22-2025 10:05-0400 Heart rate 62 /min Asad Deras Work Phone: [facility] 03-22-2025 10:05-0400 SaO2% (BldA) [Mass fraction] 97 % Asad Deras Work Phone: [facility] 03-22-2025 10:05-0400 Systolic blood pressure 144 mm[Hg] Asad Deras Work Phone: [facility] 03-14-2025 14:55-0400 Diastolic blood pressure 78 mm[Hg] Gini Haagen ROLL CUTTING OPERATOR.COMPENSATION ASSOCIATE Work Phone: [facility] 03-14-2025 14:55-0400 Heart rate 68 /min Gini Haagen ROLL CUTTING OPERATOR.COMPENSATION ASSOCIATE Work Phone: [facility] 03-14-2025 14:55-0400 Respiratory rate 16 /min Gini Haagen ROLL CUTTING OPERATOR.COMPENSATION ASSOCIATE Work Phone: [facility] 03-14-2025 14:55-0400 SaO2% (BldA) [Mass fraction] 97 % Gini Haagen ROLL CUTTING OPERATOR.COMPENSATION ASSOCIATE Work Phone: [facility] 03-14-2025 14:55-0400 Systolic blood pressure 170 mm[Hg] Gini Haagen ROLL CUTTING OPERATOR.COMPENSATION ASSOCIATE Work Phone: [facility] 03-01-2025 11:24-0400 Body mass index (BMI) [Ratio] 44.63 kg/m2 Judith Suppan ROLL CUTTING OPERATOR.COMPENSATION ASSOCIATE Work Phone: [facility] 03-01-2025 11:24-0400 Body weight 110.68 kg Judith Suppan ROLL CUTTING OPERATOR.COMPENSATION ASSOCIATE Work Phone: [facility] 03-01-2025 11:24-0400 Diastolic blood pressure 66 mm[Hg] Judith Suppan ROLL CUTTING OPERATOR.COMPENSATION ASSOCIATE Work Phone: [facility] 03-01-2025 11:24-0400 Heart rate 64 /min Judith Suppan ROLL CUTTING OPERATOR.COMPENSATION ASSOCIATE Work Phone: [facility] 03-01-2025 11:24-0400 SaO2% (BldA) [Mass fraction] 96 % Judith Suppan ROLL CUTTING OPERATOR.COMPENSATION ASSOCIATE Work Phone: [facility] 03-01-2025 11:24-0400 Systolic blood pressure 124 mm[Hg] Judith Suppan ROLL CUTTING OPERATOR.COMPENSATION ASSOCIATE Work Phone: [facility] 12-28-2024 15:49-0400 Body height 157.5 cm Sylvia Lizama MD Work Phone: [facility] 12-28-2024 15:49-0400 Body mass index (BMI) [Ratio] 44.08 kg/m2 Sylvia Lizama MD Work Phone: [facility] 12-28-2024 15:49-0400 Body weight 109.32 kg Sylvia Lizama MD Work Phone: [facility] 12-28-2024 15:49-0400 Diastolic blood pressure 70 mm[Hg] Sylvia Lizama MD Work Phone: [facility] 12-28-2024 15:49-0400 Heart rate 75 /min Sylvia Lizama MD Work Phone: [facility] 12-28-2024 15:49-0400 SaO2% (BldA) [Mass fraction] 98 % Sylvia Lizama MD Work Phone: [facility] 12-28-2024 15:49-0400 Systolic blood pressure 134 mm[Hg] Sylvia Lizama MD Work Phone: [facility] 12-10-2024 09:12-0400 Body mass index (BMI) [Ratio] 43.24 kg/m2 César Suggs DO Work Phone: [facility] 12-10-2024 09:12-0400 Body temperature 97.81 [degF] César Woodi DO Work Phone: [facility] 12-10-2024 09:12-0400 Body weight 109.32 kg César Woodi DO Work Phone: [facility] 12-10-2024 09:12-0400 Diastolic blood pressure 62 mm[Hg] César Woodi DO Work Phone: [facility] 12-10-2024 09:12-0400 Heart rate 70 /min César Suggs DO Work Phone: [facility] 12-10-2024 09:12-0400 SaO2% (BldA) [Mass fraction] 96 % César Woodi DO Work Phone: [facility] 12-10-2024 09:12-0400 Systolic blood pressure 100 mm[Hg] César Woodi DO Work Phone: [facility] 12-01-2024 14:00-0400 SaO2% (BldA) [Mass fraction] 96 % Dr. Sylvia Lizama MD Work Phone: [facility] 12-01-2024 08:15-0400 Heart rate 71 /min Dr. Sylvia Lizama MD Work Phone: [facility] 12-01-2024 03:00-0400 Body temperature 99.4 [degF] Dr. Sylvia Lizama MD Work Phone: [facility] 12-01-2024 03:00-0400 Diastolic blood pressure 73 mm[Hg] Dr. Sylvia Lizama MD Work Phone: [facility] 12-01-2024 03:00-0400 Respiratory rate 18 /min Dr. Sylvia Lizama MD Work Phone: 1(920)972-179637 [place] [address] 12-01-2024 03:00-0400 Systolic blood pressure 143 mm[Hg] Dr. Sylvia Lizama MD Work Phone: 3(686)105-898237 [place] [address] 11-30-2024 15:27-0400 Body height 160.[address] Sylvia Lizama MD Work Phone: 6(010)181-357937 [place] [address] 11-30-2024 15:27-0400 Body weight 106.[address] Sylvia Lizama MD Work Phone: 8(627)714-060237 [place] [address] 11-26-2024 17:31-0500 Body mass index (BMI) [Ratio] 41.6 kg/m2 Dr. Sylvia Lizama MD Work Phone: 3(247)893-119837 [place] [address] 11-26-2024 17:00-0500 Diastolic blood pressure 75 mm[Hg] Dr. Sylvia Lizama MD Work Phone: 9(723)942-871337 [place] [address] 11-26-2024 17:00-0500 Heart rate 72 /min Dr. Sylvia Lizama MD Work Phone: 7(494)155-336937 [place] [address] 11-26-2024 17:00-0500 Respiratory rate 18 /min Dr. Sylvia Lizama MD Work Phone: 9(372)274-432037 [place] [address] 11-26-2024 17:00-0500 SaO2% (BldA) [Mass fraction] 95 % Dr. Sylvia Lizama MD Work Phone: 2(616)279-074237 [place] [address] 11-26-2024 17:00-0500 Systolic blood pressure 165 mm[Hg] Dr. Sylvia Lizama MD Work Phone: 5(041)769-102837 [place] [address] 11-26-2024 15:20-0500 Body temperature 99 [degF] Dr. Sylvia Lizama MD Work Phone: 1(380)197-941137 [place] [address] 11-26-2024 11:22-0500 Body height 157.[address] Sylvia Lizama MD Work Phone: 2(556)133-780937 [place] [address] 11-26-2024 11:22-0500 Body mass index (BMI) [Ratio] 44.4 kg/m2 Dr. Sylvia Lizama MD Work Phone: [facility] 11-26-2024 11:22-0500 Body weight 110.[address] Sylvia Lizama MD Work Phone: [facility] 11-12-2024 15:48-0500 Diastolic blood pressure 86 mm[Hg] Judith Suppan ROLL CUTTING OPERATOR.COMPENSATION ASSOCIATE Work Phone: [facility] 11-12-2024 15:48-0500 Systolic blood pressure 146 mm[Hg] Judith Suppan ROLL CUTTING OPERATOR.COMPENSATION ASSOCIATE Work Phone: [facility] 11-12-2024 15:23-0500 Body mass index (BMI) [Ratio] 43.06 kg/m2 Judith Suppan ROLL CUTTING OPERATOR.COMPENSATION ASSOCIATE Work Phone: [facility] 11-12-2024 15:23-0500 Body temperature 100.9 [degF] Judith Suppan ROLL CUTTING OPERATOR.COMPENSATION ASSOCIATE Work Phone: [facility] 11-12-2024 15:23-0500 Body weight 108.86 kg Judith Suppan ROLL CUTTING OPERATOR.COMPENSATION ASSOCIATE Work Phone: [facility] 11-12-2024 15:23-0500 Heart rate 71 /min Judith Suppan ROLL CUTTING OPERATOR.COMPENSATION ASSOCIATE Work Phone: [facility] 11-12-2024 15:23-0500 SaO2% (BldA) [Mass fraction] 99 % Judith Suppan ROLL CUTTING OPERATOR.COMPENSATION ASSOCIATE Work Phone: [facility] 11-06-2024 15:46-0500 Body temperature 98.4 [degF] Dr. Sylvia Lizama MD Work Phone: [facility] 11-06-2024 15:46-0500 Diastolic blood pressure 101 mm[Hg] Dr. Sylvia Lizama MD Work Phone: [facility] 11-06-2024 15:46-0500 Heart rate 74 /min Dr. Sylvia Lizama MD Work Phone: [facility] 11-06-2024 15:46-0500 Respiratory rate 23 /min Dr. Sylvia Lizama MD Work Phone: [facility] 11-06-2024 15:46-0500 SaO2% (BldA) [Mass fraction] 95 % Dr. ySlvia Lizama MD Work Phone: [facility] 11-06-2024 15:46-0500 Systolic blood pressure 167 mm[Hg] Dr. Sylvia Lizama MD Work Phone: [facility] 11-01-2024 12:06-0500 Body mass index (BMI) [Ratio] 43.51 kg/m2 Elida Lozada ROLL CUTTING OPERATOR.COMPENSATION ASSOCIATE Work Phone: [facility] 11-01-2024 12:06-0500 Body temperature 99.5 [degF] Elida Lozada ROLL CUTTING OPERATOR.COMPENSATION ASSOCIATE Work Phone: [facility] 11-01-2024 12:06-0500 Body weight 110 kg Elida Lozada ROLL CUTTING OPERATOR.COMPENSATION ASSOCIATE Work Phone: [facility] 11-01-2024 12:06-0500 Diastolic blood pressure 82 mm[Hg] Elida Lozada ROLL CUTTING OPERATOR.COMPENSATION ASSOCIATE Work Phone: [facility] 11-01-2024 12:06-0500 Heart rate 68 /min Elida Lozada ROLL CUTTING OPERATOR.COMPENSATION ASSOCIATE Work Phone: [facility] 11-01-2024 12:06-0500 SaO2% (BldA) [Mass fraction] 96 % Elida Lozada ROLL CUTTING OPERATOR.COMPENSATION ASSOCIATE Work Phone: [facility] 11-01-2024 12:06-0500 Systolic blood pressure 130 mm[Hg] Elida Lozada ROLL CUTTING OPERATOR.COMPENSATION ASSOCIATE Work Phone: [facility] 10-08-2024 08:40-0500 Body mass index (BMI) [Ratio] 43.78 kg/m2 Treatment Wstr Work Phone: [facility] 10-08-2024 08:40-0500 Body temperature 97.39 [degF] Treatment [facility]str Work Phone: [facility] 10-08-2024 08:40-0500 Body weight 110.68 kg Treatment Wstr Work Phone: [facility] 10-08-2024 08:40-0500 Diastolic blood pressure 55 mm[Hg] Treatment Wstr Work Phone: [facility] 10-08-2024 08:40-0500 Heart rate 78 /min Treatment Wstr Work Phone: [facility] 10-08-2024 08:40-0500 Respiratory rate 16 /min Treatment Wstr Work Phone: [facility] 10-08-2024 08:40-0500 SaO2% (BldA) [Mass fraction] 96 % Treatment [facility]str Work Phone: [facility] 10-08-2024 08:40-0500 Systolic blood pressure 127 mm[Hg] Treatment Wstr Work Phone: [facility] 10-01-2024 13:14-0500 Diastolic blood pressure 60 mm[Hg] Treatment Wstr Work Phone: [facility] 10-01-2024 13:14-0500 Heart rate 60 /min Treatment Wstr Work Phone: [facility] 10-01-2024 13:14-0500 SaO2% (BldA) [Mass fraction] 97 % Treatment [facility]str Work Phone: [facility] 10-01-2024 13:14-0500 Systolic blood pressure 150 mm[Hg] Treatment Wstr Work Phone: [facility] 10-01-2024 10:03-0500 Body mass index (BMI) [Ratio] 43.78 kg/m2 Treatment [facility]str Work Phone: [facility] 10-01-2024 10:03-0500 Body temperature 97.11 [degF] Treatment Wstr Work Phone: [facility] 10-01-2024 10:03-0500 Body weight 110.68 kg Treatment Wstr Work Phone: [facility] 09-24-2024 13:25-0500 Diastolic blood pressure 76 mm[Hg] Treatment Wstr Work Phone: [facility] 09-24-2024 13:25-0500 Heart rate 56 /min Treatment Wstr Work Phone: [facility] 09-24-2024 13:25-0500 Respiratory rate 16 /min Treatment Wstr Work Phone: [facility] 09-24-2024 13:25-0500 SaO2% (BldA) [Mass fraction] 96 % Treatment Wstr Work Phone: [facility] 09-24-2024 13:25-0500 Systolic blood pressure 170 mm[Hg] Treatment Wstr Work Phone: [facility] 09-24-2024 13:00-0500 Body temperature 97.5 [degF] Treatment Wstr Work Phone: [facility] 09-24-2024 08:41-0500 Body mass index (BMI) [Ratio] 43.69 kg/m2 Treatment [facility]str Work Phone: [facility] 09-24-2024 08:41-0500 Body weight 110.45 kg Treatment Wstr Work Phone: [facility] 09-17-2024 14:07-0500 Diastolic blood pressure 84 mm[Hg] Treatment Wstr Work Phone: [facility] 09-17-2024 14:07-0500 Heart rate 69 /min Treatment Wstr Work Phone: [facility] 09-17-2024 14:07-0500 Systolic blood pressure 148 mm[Hg] Treatment Wstr Work Phone: [facility] 09-17-2024 13:30-0500 Body temperature 97.81 [degF] Treatment Wstr Work Phone: [facility] 09-17-2024 13:30-0500 Respiratory rate 16 /min Treatment Wstr Work Phone: [facility] 09-17-2024 13:30-0500 SaO2% (BldA) [Mass fraction] 94 % Treatment Wstr Work Phone: [facility] 09-17-2024 08:04-0500 Body height 159 cm Treatment Wstr Work Phone: [facility] 09-17-2024 08:04-0500 Body mass index (BMI) [Ratio] 44.32 kg/m2 Treatment Wstr Work Phone: [facility] 09-17-2024 08:04-0500 Body weight 112.04 kg Treatment Wstr Work Phone: [facility] 09-03-2024 10:01-0500 Body mass index (BMI) [Ratio] 42.43 kg/m2 César Masci DO Work Phone: [facility] 09-03-2024 10:01-0500 Body temperature 97.59 [degF] César Masci DO Work Phone: [facility] 09-03-2024 10:01-0500 Body weight 108.64 kg César Masci DO Work Phone: [facility] 09-03-2024 10:01-0500 Diastolic blood pressure 56 mm[Hg] César Masci DO Work Phone: [facility] 09-03-2024 10:01-0500 Heart rate 68 /min César Masci DO Work Phone: [facility] 09-03-2024 10:01-0500 SaO2% (BldA) [Mass fraction] 97 % César Masci DO Work Phone: [facility] 09-03-2024 10:01-0500 Systolic blood pressure 91 mm[Hg] César Masci DO Work Phone: [facility] 07-27-2024 13:44-0500 Body mass index (BMI) [Ratio] 42.57 kg/m2 Helen Bonilla APRN.COMPENSATION ASSOCIATE Work Phone: [facility] 07-27-2024 13:44-0500 Body temperature 98.91 [degF] Helen Bonilla APRN.COMPENSATION ASSOCIATE Work Phone: [facility] 07-27-2024 13:44-0500 Body weight 109 kg Helen Praisler-Wood ROLL CUTTING OPERATOR.COMPENSATION ASSOCIATE Work Phone: [facility] 07-27-2024 13:44-0500 Diastolic blood pressure 93 mm[Hg] Helen Praisler-Wood ROLL CUTTING OPERATOR.COMPENSATION ASSOCIATE Work Phone: [facility] 07-27-2024 13:44-0500 Heart rate 87 /min Helen Praisler-Wood ROLL CUTTING OPERATOR.COMPENSATION ASSOCIATE Work Phone: [facility] 07-27-2024 13:44-0500 Respiratory rate 20 /min Helen Praisler-Wood ROLL CUTTING OPERATOR.COMPENSATION ASSOCIATE Work Phone: [facility] 07-27-2024 13:44-0500 SaO2% (BldA) [Mass fraction] 98 % Helen Praisler-Wood ROLL CUTTING OPERATOR.COMPENSATION ASSOCIATE Work Phone: [facility] 07-27-2024 13:44-0500 Systolic blood pressure 148 mm[Hg] Helen Praisler-Wood ROLL CUTTING OPERATOR.COMPENSATION ASSOCIATE Work Phone: [facility] 07-27-2024 12:26-0500 Body mass index (BMI) [Ratio] 42.57 kg/m2 Missy Laoer PA-C Work Phone: [facility] 07-27-2024 12:26-0500 Body weight 109 kg Missy Laoer PA-C Work Phone: [facility] 07-27-2024 12:26-0500 Diastolic blood pressure 86 mm[Hg] Missy Laoer PA-C Work Phone: [facility] 07-27-2024 12:26-0500 Heart rate 78 /min Missy Queener PA-C Work Phone: [facility] 07-27-2024 12:26-0500 Respiratory rate 14 /min Missy Queener PA-C Work Phone: [facility] 07-27-2024 12:26-0500 SaO2% (BldA) [Mass fraction] 94 % Missy Laoer PA-C Work Phone: [facility] 07-27-2024 12:26-0500 Systolic blood pressure 146 mm[Hg] Missy Hirsch PA-C Work Phone: [facility] 07-06-2024 15:07-0400 Diastolic blood pressure 66 mm[Hg] Judith Suppan ROLL CUTTING OPERATOR.COMPENSATION ASSOCIATE Work Phone: [facility] 07-06-2024 15:07-0400 Systolic blood pressure 114 mm[Hg] Judith Suppan ROLL CUTTING OPERATOR.COMPENSATION ASSOCIATE Work Phone: [facility] 07-06-2024 14:46-0400 Body mass index (BMI) [Ratio] 41.86 kg/m2 Judith Suppan ROLL CUTTING OPERATOR.COMPENSATION ASSOCIATE Work Phone: [facility] 07-06-2024 14:46-0400 Body weight 107.2 kg Judith Suppan ROLL CUTTING OPERATOR.COMPENSATION ASSOCIATE Work Phone: [facility] 07-06-2024 14:46-0400 Heart rate 68 /min Judith Suppan ROLL CUTTING OPERATOR.COMPENSATION ASSOCIATE Work Phone: [facility] 07-06-2024 14:46-0400 SaO2% (BldA) [Mass fraction] 100 % Judith Suppan ROLL CUTTING OPERATOR.COMPENSATION ASSOCIATE Work Phone: [facility] 07-02-2024 11:51-0400 Diastolic blood pressure 71 mm[Hg] Judith Suppan ROLL CUTTING OPERATOR.COMPENSATION ASSOCIATE Work Phone: [facility] 07-02-2024 11:51-0400 Systolic blood pressure 124 mm[Hg] Judith Suppan ROLL CUTTING OPERATOR.COMPENSATION ASSOCIATE Work Phone: [facility] 07-02-2024 11:48-0400 Body mass index (BMI) [Ratio] 41.63 kg/m2 Judith Suppan ROLL CUTTING OPERATOR.COMPENSATION ASSOCIATE Work Phone: [facility] 07-02-2024 11:48-0400 Body weight 106.59 kg Judith Suppan ROLL CUTTING OPERATOR.COMPENSATION ASSOCIATE Work Phone: [facility] 07-02-2024 11:48-0400 Heart rate 71 /min Judith Suppan ROLL CUTTING OPERATOR.COMPENSATION ASSOCIATE Work Phone: [facility] 07-02-2024 11:48-0400 SaO2% (BldA) [Mass fraction] 99 % Judith Suppan ROLL CUTTING OPERATOR.COMPENSATION ASSOCIATE Work Phone: [facility] 06-17-2024 11:27-0400 Body mass index (BMI) [Ratio] 41.67 kg/m2 Judith Suppan ROLL CUTTING OPERATOR.COMPENSATION ASSOCIATE Work Phone: [facility] 06-17-2024 11:27-0400 Body weight 106.7 kg Judith Suppan ROLL CUTTING OPERATOR.COMPENSATION ASSOCIATE Work Phone: [facility] 06-17-2024 11:27-0400 Diastolic blood pressure 68 mm[Hg] Judith Suppan ROLL CUTTING OPERATOR.COMPENSATION ASSOCIATE Work Phone: [facility] 06-17-2024 11:27-0400 Heart rate 68 /min Judith Suppan ROLL CUTTING OPERATOR.COMPENSATION ASSOCIATE Work Phone: [facility] 06-17-2024 11:27-0400 Respiratory rate 16 /min Judith Suppan ROLL CUTTING OPERATOR.COMPENSATION ASSOCIATE Work Phone: [facility] 06-17-2024 11:27-0400 SaO2% (BldA) [Mass fraction] 98 % Judith Suppan ROLL CUTTING OPERATOR.COMPENSATION ASSOCIATE Work Phone: [facility] 06-17-2024 11:27-0400 Systolic blood pressure 120 mm[Hg] Judith Suppan ROLL CUTTING OPERATOR.COMPENSATION ASSOCIATE Work Phone: [facility] 05-18-2024 14:22-0400 Body mass index (BMI) [Ratio] 41.63 kg/m2 Judith Suppan ROLL CUTTING OPERATOR.COMPENSATION ASSOCIATE Work Phone: [facility] 05-18-2024 14:22-0400 Body weight 106.59 kg Judith Suppan ROLL CUTTING OPERATOR.COMPENSATION ASSOCIATE Work Phone: [facility] 05-18-2024 14:22-0400 Diastolic blood pressure 78 mm[Hg] Judith Suppan ROLL CUTTING OPERATOR.COMPENSATION ASSOCIATE Work Phone: [facility] 05-18-2024 14:22-0400 Heart rate 60 /min Judith Suppan ROLL CUTTING OPERATOR.COMPENSATION ASSOCIATE Work Phone: [facility] 05-18-2024 14:22-0400 SaO2% (BldA) [Mass fraction] 96 % Judith Suppan ROLL CUTTING OPERATOR.COMPENSATION ASSOCIATE Work Phone: [facility] 05-18-2024 14:22-0400 Systolic blood pressure 129 mm[Hg] Judith Suppan ROLL CUTTING OPERATOR.COMPENSATION ASSOCIATE Work Phone: [facility] 05-11-2024 13:44-0400 Body mass index (BMI) [Ratio] 41.12 kg/m2 Enid Brigotti ROLL CUTTING OPERATOR.COMPENSATION ASSOCIATE Work Phone: [facility] 05-11-2024 13:44-0400 Body temperature 97 [degF] Enid Brigotti ROLL CUTTING OPERATOR.COMPENSATION ASSOCIATE Work Phone: [facility] 05-11-2024 13:44-0400 Body weight 105.3 kg Enid Florytti ROLL CUTTING OPERATOR.COMPENSATION ASSOCIATE Work Phone: [facility] 05-11-2024 13:44-0400 Diastolic blood pressure 78 mm[Hg] Enid Brigotti ROLL CUTTING OPERATOR.COMPENSATION ASSOCIATE Work Phone: [facility] 05-11-2024 13:44-0400 Heart rate 63 /min Enid Brigotti ROLL CUTTING OPERATOR.COMPENSATION ASSOCIATE Work Phone: [facility] 05-11-2024 13:44-0400 Respiratory rate 18 /min Enid Brigotti ROLL CUTTING OPERATOR.COMPENSATION ASSOCIATE Work Phone: [facility] 05-11-2024 13:44-0400 SaO2% (BldA) [Mass fraction] 99 % Enid Brigotti ROLL CUTTING OPERATOR.COMPENSATION ASSOCIATE Work Phone: [facility] 05-11-2024 13:44-0400 Systolic blood pressure 122 mm[Hg] Enid Brigotti ROLL CUTTING OPERATOR.COMPENSATION ASSOCIATE Work Phone: [facility] 05-03-2024 10:52-0400 Diastolic blood pressure 38 mm[Hg] Judith Suppan ROLL CUTTING OPERATOR.COMPENSATION ASSOCIATE Work Phone: [facility] 05-03-2024 10:52-0400 Systolic blood pressure 70 mm[Hg] Judith Suppan ROLL CUTTING OPERATOR.COMPENSATION ASSOCIATE Work Phone: [facility] 05-03-2024 10:26-0400 Body mass index (BMI) [Ratio] 40.39 kg/m2 Judith Suppan ROLL CUTTING OPERATOR.COMPENSATION ASSOCIATE Work Phone: [facility] 05-03-2024 10:26-0400 Body weight 103.42 kg Judith Suppan ROLL CUTTING OPERATOR.COMPENSATION ASSOCIATE Work Phone: [facility] 05-03-2024 10:26-0400 Heart rate 67 /min Judith Suppan ROLL CUTTING OPERATOR.COMPENSATION ASSOCIATE Work Phone: [facility] 05-03-2024 10:26-0400 SaO2% (BldA) [Mass fraction] 96 % Judith Suppan ROLL CUTTING OPERATOR.COMPENSATION ASSOCIATE Work Phone: [facility] 04-29-2024 12:50-0400 Diastolic blood pressure 63 mm[Hg] Zeny Crowder MD Work Phone: [facility] 04-29-2024 12:50-0400 Respiratory rate 16 /min Zeny Crowder MD Work Phone: [facility] 04-29-2024 12:50-0400 Systolic blood pressure 132 mm[Hg] Zeny Crowder MD Work Phone: [facility] 04-29-2024 12:05-0400 Heart rate 64 /min Zeny Crowder MD Work Phone: [facility] 04-29-2024 12:05-0400 SaO2% (BldA) [Mass fraction] 96 % Zeny Crowder MD Work Phone: [facility] 04-29-2024 11:18-0400 Body mass index (BMI) [Ratio] 41.43 kg/m2 Zeny Crowder MD Work Phone: [facility] 04-29-2024 11:18-0400 Body temperature 96.6 [degF] Zeny Crowder MD Work Phone: [facility] 04-29-2024 11:18-0400 Body weight 106.1 kg Zeny Crowder MD Work Phone: [facility] 04-08-2024 12:49-0400 Body mass index (BMI) [Ratio] 41.45 kg/m2 Judith Suppan ROLL CUTTING OPERATOR.COMPENSATION ASSOCIATE Work Phone: [facility] 04-08-2024 12:49-0400 Body temperature 97.3 [degF] Judith Suppan ROLL CUTTING OPERATOR.COMPENSATION ASSOCIATE Work Phone: [facility] 04-08-2024 12:49-0400 Body weight 106.14 kg Judith Suppan ROLL CUTTING OPERATOR.COMPENSATION ASSOCIATE Work Phone: [facility] 04-08-2024 12:49-0400 Diastolic blood pressure 80 mm[Hg] Judith Suppan ROLL CUTTING OPERATOR.COMPENSATION ASSOCIATE Work Phone: [facility] 04-08-2024 12:49-0400 Heart rate 62 /min Judith Suppan ROLL CUTTING OPERATOR.COMPENSATION ASSOCIATE Work Phone: [facility] 04-08-2024 12:49-0400 SaO2% (BldA) [Mass fraction] 97 % Judith Suppan ROLL CUTTING OPERATOR.COMPENSATION ASSOCIATE Work Phone: [facility] 04-08-2024 12:49-0400 Systolic blood pressure 130 mm[Hg] Judith Suppan ROLL CUTTING OPERATOR.COMPENSATION ASSOCIATE Work Phone: [facility] 04-02-2024 14:13-0400 Body height 160 cm Sylvia Lizama MD Work Phone: [facility] 04-02-2024 14:13-0400 Body mass index (BMI) [Ratio] 41.45 kg/m2 Sylvia Lizama MD Work Phone: [facility] 04-02-2024 14:13-0400 Body weight 106.14 kg Sylvia Lizama MD Work Phone: [facility] 04-02-2024 14:13-0400 Diastolic blood pressure 66 mm[Hg] Sylvia Lizama MD Work Phone: [facility] 04-02-2024 14:13-0400 Heart rate 76 /min Sylvia Lizama MD Work Phone: [facility] 04-02-2024 14:130400 SaO2% (BldA) [Mass fraction] 96 % Sylvia Lizama MD Work Phone: [facility] 04-02-2024 14:130400 Systolic blood pressure 152 mm[Hg] Sylvia Lizama MD Work Phone: [facility] 03-29-2024 14:090400 Body height 160 cm Zeny Crowder MD Work Phone: [facility] 03-29-2024 14:09-0400 Body mass index (BMI) [Ratio] 41.52 kg/m2 Zeny Crowder MD Work Phone: [facility] 03-29-2024 14:090400 Body temperature 97.9 [degF] Zeny Crowder MD Work Phone: [facility] 03-29-2024 14:09-0400 Body weight 106.32 kg Zeny Crowder MD Work Phone: [facility] 03-29-2024 14:09-0400 Diastolic blood pressure 84 mm[Hg] Zeny Crowder MD Work Phone: [facility] 03-29-2024 14:09-0400 Heart rate 78 /min Zney Crowder MD Work Phone: [facility] 03-29-2024 14:09-0400 SaO2% (BldA) [Mass fraction] 94 % Zeny Crowder MD Work Phone: [facility] 03-29-2024 14:09-0400 Systolic blood pressure 136 mm[Hg] Zeny Crowder MD Work Phone: [facility] 03-15-2024 10:07-0400 Diastolic blood pressure 78 mm[Hg] Gini Haagen ROLL CUTTING OPERATOR.COMPENSATION ASSOCIATE Work Phone: [facility] 03-15-2024 10:07-0400 Heart rate 66 /min Gini Haagen ROLL CUTTING OPERATOR.COMPENSATION ASSOCIATE Work Phone: [facility] 03-15-2024 10:07-0400 Respiratory rate 16 /min Gini Haagen ROLL CUTTING OPERATOR.COMPENSATION ASSOCIATE Work Phone: [facility] 03-15-2024 10:07-0400 SaO2% (BldA) [Mass fraction] 96 % Gini Haagen ROLL CUTTING OPERATOR.COMPENSATION ASSOCIATE Work Phone: [facility] 03-15-2024 10:07-0400 Systolic blood pressure 108 mm[Hg] Gini Haagen ROLL CUTTING OPERATOR.COMPENSATION ASSOCIATE Work Phone: [facility] 03-04-2024 11:26-0400 Body mass index (BMI) [Ratio] 41.27 kg/m2 Judith Suppan ROLL CUTTING OPERATOR.BRICK CHIMNEY BUILDER Work Phone: [facility] 03-04-2024 11:26-0400 Body temperature 98.01 [degF] Judith Suppan ROLL CUTTING OPERATOR.BRICK CHIMNEY BUILDER Work Phone: [facility] 03-04-2024 11:26-0400 Body weight 105.69 kg Judith Suppan ROLL CUTTING OPERATOR.BRICK CHIMNEY BUILDER Work Phone: [facility] 03-04-2024 11:26-0400 Diastolic blood pressure 66 mm[Hg] Judith Suppan ROLL CUTTING OPERATOR.BRICK CHIMNEY BUILDER Work Phone: [facility] 03-04-2024 11:26-0400 Heart rate 66 /min Judith Suppan ROLL CUTTING OPERATOR.BRICK CHIMNEY BUILDER Work Phone: [facility] 03-04-2024 11:26-0400 Respiratory rate 18 /min Judith Suppan ROLL CUTTING OPERATOR.BRICK CHIMNEY BUILDER Work Phone: [facility] 03-04-2024 11:26-0400 SaO2% (BldA) [Mass fraction] 97 % Judith Suppan ROLL CUTTING OPERATOR.BRICK CHIMNEY BUILDER Work Phone: [facility] 03-04-2024 11:26-0400 Systolic blood pressure 142 mm[Hg] Judith Suppan ROLL CUTTING OPERATOR.BRICK CHIMNEY BUILDER Work Phone: [facility] 02-19-2024 13:17-0400 Body mass index (BMI) [Ratio] 41.45 kg/m2 Shaila Sergey ROLL CUTTING OPERATOR.COMPENSATION ASSOCIATE Work Phone: [facility] 02-19-2024 13:17-0400 Body weight 106.14 kg Shaila [place] ROLL CUTTING OPERATOR.COMPENSATION ASSOCIATE Work Phone: [facility] 02-19-2024 13:17-0400 Diastolic blood pressure 82 mm[Hg] Shaila [place] ROLL CUTTING OPERATOR.COMPENSATION ASSOCIATE Work Phone: [facility] 02-19-2024 13:17-0400 Systolic blood pressure 140 mm[Hg] Shaila [place] ROLL CUTTING OPERATOR.COMPENSATION ASSOCIATE Work Phone: [facility] 02-05-2024 11:05-0400 Body mass index (BMI) [Ratio] 42.16 kg/m2 Judith Suppan ROLL CUTTING OPERATOR.BRICK CHIMNEY BUILDER Work Phone: [facility] 02-05-2024 11:05-0400 Body weight 107.96 kg Judith Suppan ROLL CUTTING OPERATOR.BRICK CHIMNEY BUILDER Work Phone: [facility] 02-05-2024 11:05-0400 Diastolic blood pressure 62 mm[Hg] Judith Suppan ROLL CUTTING OPERATOR.BRICK CHIMNEY BUILDER Work Phone: [facility] 02-05-2024 11:05-0400 Heart rate 59 /min Judith Suppan ROLL CUTTING OPERATOR.BRICK CHIMNEY BUILDER Work Phone: [facility] 02-05-2024 11:05-0400 Respiratory rate 14 /min Judith Suppan ROLL CUTTING OPERATOR.BRICK CHIMNEY BUILDER Work Phone: [facility] 02-05-2024 11:05-0400 SaO2% (BldA) [Mass fraction] 97 % Judith Suppan ROLL CUTTING OPERATOR.BRICK CHIMNEY BUILDER Work Phone: [facility] 02-05-2024 11:05-0400 Systolic blood pressure 134 mm[Hg] Judith Pickard BECKYAnnetteBRICK CHIMNEY BUILDER Work Phone: [facility] 01-07-2024 13:38-0400 Body height 160 cm Sylvia Lizama MD Work Phone: [facility] 01-07-2024 13:38-0400 Body weight 107.5 kg Sylvia Lizama MD Work Phone: [facility] 01-07-2024 13:38-0400 Diastolic blood pressure 58 mm[Hg] Sylvia Lizama MD Work Phone: [facility] 01-07-2024 13:38-0400 Heart rate 69 /min Sylvia Lizama MD Work Phone: [facility] 01-07-2024 13:38-0400 SaO2% (BldA) [Mass fraction] 98 % Sylvia Lizama MD Work Phone: [facility] 01-07-2024 13:38-0400 Systolic blood pressure 124 mm[Hg] Sylvia Lizama MD Work Phone: [facility] 2023 14:31-0500 Body temperature 97.81 [degF] Krislyn Aberegg PA Work Phone: [facility] 2023 14:31-0500 Body weight 106.78 kg Krislyn Aberegg PA Work Phone: [facility] 2023 14:31-0500 Diastolic blood pressure 74 mm[Hg] Krislyn Aberegg PA Work Phone: [facility] 2023 14:31-0500 Heart rate 79 /min Krislyn Aberegg PA Work Phone: [facility] 2023 14:31-0500 Respiratory rate 18 /min Krislyn Aberegg PA Work Phone: [facility] 2023 14:31-0500 SaO2% (BldA) [Mass fraction] 96 % Krislyn Aberegg PA Work Phone: [facility] 2023 14:31-0500 Systolic blood pressure 142 mm[Hg] Darrian HOPKINS Work Phone: [facility] 10-27-2023 09:37-0500 Body temperature 97.59 [degF] Sathya Rajan MD Work Phone: [facility] 10-27-2023 09:37-0500 Body weight 106.69 kg Sathya Rajan MD Work Phone: [facility] 10-27-2023 09:37-0500 Diastolic blood pressure 80 mm[Hg] Sathya Rajan MD Work Phone: [facility] 10-27-2023 09:37-0500 Heart rate 74 /min Sathya Rajan MD Work Phone: [facility] 10-27-2023 09:37-0500 Respiratory rate 22 /min Sathya Rajan MD Work Phone: [facility] 10-27-2023 09:37-0500 SaO2% (BldA) [Mass fraction] 97 % Sathya Rajan MD Work Phone: [facility] 10-27-2023 09:37-0500 Systolic blood pressure 157 mm[Hg] Sathya Rajan MD Work Phone: [facility] 07-08-2023 15:34-0400 Body weight 106.14 kg Sylvia Lizama MD Work Phone: [facility] 07-08-2023 15:34-0400 Diastolic blood pressure 72 mm[Hg] Sylvia Lizama MD Work Phone: [facility] 07-08-2023 15:34-0400 Heart rate 73 /min Sylvia Lizama MD Work Phone: [facility] 07-08-2023 15:34-0400 Respiratory rate 16 /min Sylvia Lizama MD Work Phone: [facility] 07-08-2023 15:34-0400 SaO2% (BldA) [Mass fraction] 96 % Sylvia Lizama MD Work Phone: [facility] 07-08-2023 15:34-0400 Systolic blood pressure 136 mm[Hg] Sylvia Lizama MD Work Phone: [facility] 06-13-2023 10:01-0400 Body temperature 98.01 [degF] Prince Fang MD Work Phone: [facility] 06-13-2023 10:01-0400 Body weight 106.37 kg Prince Fang MD Work Phone: [facility] 06-13-2023 10:01-0400 Diastolic blood pressure 66 mm[Hg] Prince Fang MD Work Phone: [facility] 06-13-2023 10:01-0400 Heart rate 72 /min Prince Fang MD Work Phone: [facility] 06-13-2023 10:01-0400 SaO2% (BldA) [Mass fraction] 97 % Prince Fagn MD Work Phone: [facility] 06-13-2023 10:01-0400 Systolic blood pressure 110 mm[Hg] Prince Fang MD Work Phone: [facility] 06-13-2023 09:47-0400 Body weight 106.37 kg Lab/Port Wstr Work Phone: [facility] 04-17-2023 15:13-0400 Body weight 104.33 kg NA Lemus PA-C Work Phone: [facility] 04-17-2023 15:13-0400 Diastolic blood pressure 84 mm[Hg] NA Lemus PA-C Work Phone: [facility] 04-17-2023 15:13-0400 Heart rate 69 /min NA Lemus PA-C Work Phone: [facility] 04-17-2023 15:13-0400 Respiratory rate 20 /min NA Lemus PA-C Work Phone: [facility] 04-17-2023 15:13-0400 SaO2% (BldA) [Mass fraction] 97 % NA Lemus PA-C Work Phone: [facility] 04-17-2023 15:13-0400 Systolic blood pressure 132 mm[Hg] NA Lemus PA-C Work Phone: [facility] 04-03-2023 09:44-0400 Body weight 102.97 kg Sylvia Lizama MD Work Phone: [facility] 04-03-2023 09:44-0400 Diastolic blood pressure 64 mm[Hg] Sylvia Lizama MD Work Phone: [facility] 04-03-2023 09:44-0400 Heart rate 70 /min Sylvia Lizama MD Work Phone: [facility] 04-03-2023 09:44-0400 SaO2% (BldA) [Mass fraction] 98 % Sylvia Lizama MD Work Phone: [facility] 04-03-2023 09:44-0400 Systolic blood pressure 126 mm[Hg] Sylvia Lizama MD Work Phone: [facility] 03-24-2023 11:09-0400 Body weight 103.24 kg Elissa Tannhof ROLL CUTTING OPERATOR.COMPENSATION ASSOCIATE Work Phone: [facility] 03-24-2023 11:09-0400 Diastolic blood pressure 64 mm[Hg] Elissa Tannhof ROLL CUTTING OPERATOR.COMPENSATION ASSOCIATE Work Phone: [facility] 03-24-2023 11:09-0400 Heart rate 78 /min Elissa Tannhof ROLL CUTTING OPERATOR.COMPENSATION ASSOCIATE Work Phone: [facility] 03-24-2023 11:09-0400 Respiratory rate 18 /min Elissa Tannhof ROLL CUTTING OPERATOR.COMPENSATION ASSOCIATE Work Phone: [facility] 03-24-2023 11:09-0400 SaO2% (BldA) [Mass fraction] 97 % Elissa Tannhof ROLL CUTTING OPERATOR.COMPENSATION ASSOCIATE Work Phone: [facility] 03-24-2023 11:09-0400 Systolic blood pressure 122 mm[Hg] Elissa Tannhof ROLL CUTTING OPERATOR.COMPENSATION ASSOCIATE Work Phone: [facility] 02-24-2023 13:44-0400 Body temperature 97.5 [degF] Treatment Wstr Work Phone: [facility] 02-24-2023 13:44-0400 Body weight 104.55 kg Treatment Wstr Work Phone: [facility] 02-24-2023 13:44-0400 Diastolic blood pressure 80 mm[Hg] Treatment Wstr Work Phone: [facility] 02-24-2023 13:44-0400 Heart rate 65 /min Treatment Wstr Work Phone: [facility] 02-24-2023 13:44-0400 Systolic blood pressure 154 mm[Hg] Treatment Wstr Work Phone: [facility] 02-21-2023 10:39-0400 Diastolic blood pressure 67 mm[Hg] Franklyn Juares MD Work Phone: [facility] 02-21-2023 10:39-0400 Heart rate 67 /min Franklyn Juares MD Work Phone: [facility] 02-21-2023 10:39-0400 Systolic blood pressure 140 mm[Hg] Franklyn Juares MD Work Phone: [facility] 12-30-2022 14:35-0400 Diastolic blood pressure 66 mm[Hg] Treatment Wstr Work Phone: [facility] 12-30-2022 14:35-0400 Heart rate 69 /min Treatment Wstr Work Phone: [facility] 12-30-2022 14:35-0400 Systolic blood pressure 138 mm[Hg] Treatment Wstr Work Phone: [facility] 12-30-2022 14:11-0400 Body temperature 97.59 [degF] Treatment Wstr Work Phone: [facility] 12-30-2022 14:11-0400 Body weight 101.83 kg Treatment Wstr Work Phone: [facility] 12-30-2022 14:11-0400 SaO2% (BldA) [Mass fraction] 100 % Treatment Wstr Work Phone: [facility] 12-25-2022 10:52-0400 Diastolic blood pressure 80 mm[Hg] Gini Haagen ROLL CUTTING OPERATOR.COMPENSATION ASSOCIATE Work Phone: [facility] 12-25-2022 10:52-0400 Heart rate 78 /min Gini Haagen ROLL CUTTING OPERATOR.COMPENSATION ASSOCIATE Work Phone: [facility] 12-25-2022 10:52-0400 Respiratory rate 18 /min Gini Haagen ROLL CUTTING OPERATOR.COMPENSATION ASSOCIATE Work Phone: [facility] 12-25-2022 10:52-0400 SaO2% (BldA) [Mass fraction] 98 % Gini Haagen ROLL CUTTING OPERATOR.COMPENSATION ASSOCIATE Work Phone: [facility] 12-25-2022 10:52-0400 Systolic blood pressure 132 mm[Hg] Gini Haagen ROLL CUTTING OPERATOR.COMPENSATION ASSOCIATE Work Phone: [facility] 12-17-2022 14:07-0400 Body height 156 cm Anca Almonte MD Work Phone: [facility] 12-17-2022 14:07-0400 Body temperature 97.7 [degF] Anca Almonte MD Work Phone: [facility] 12-17-2022 14:07-0400 Body weight 104.55 kg Anca Almonte MD Work Phone: [facility] 12-17-2022 14:07-0400 Diastolic blood pressure 66 mm[Hg] Anca Almonte MD Work Phone: [facility] 12-17-2022 14:07-0400 Heart rate 73 /min Anca Almonte MD Work Phone: [facility] 12-17-2022 14:07-0400 SaO2% (BldA) [Mass fraction] 98 % Anca Almonte MD Work Phone: [facility] 12-17-2022 14:07-0400 Systolic blood pressure 128 mm[Hg] Anca Almonte MD Work Phone: [facility] 12-09-2022 15:17-0400 Body weight 103.42 kg Sylvia Lizama MD Work Phone: [facility] 12-09-2022 15:17-0400 Diastolic blood pressure 82 mm[Hg] Sylvia Lizama MD Work Phone: [facility] 12-09-2022 15:17-0400 Heart rate 80 /min Sylvia Lizama MD Work Phone: [facility] 12-09-2022 15:17-0400 SaO2% (BldA) [Mass fraction] 99 % Sylvia Lizama MD Work Phone: [facility] 12-09-2022 15:17-0400 Systolic blood pressure 182 mm[Hg] Sylvia Lizama MD Work Phone: [facility] 11-27-2022 08:48-0500 Body height 157.5 cm Sylvia Lizama MD Work Phone: [facility] 11-27-2022 08:48-0500 Body weight 101.15 kg Sylvia Lizama MD Work Phone: [facility] 11-27-2022 08:48-0500 Diastolic blood pressure 70 mm[Hg] Sylvia Lizama MD Work Phone: [facility] 11-27-2022 08:48-0500 Heart rate 72 /min Sylvia Lizama MD Work Phone: [facility] 11-27-2022 08:48-0500 SaO2% (BldA) [Mass fraction] 99 % Sylvia Lizama MD Work Phone: [facility] 11-27-2022 08:48-0500 Systolic blood pressure 138 mm[Hg] Sylvia Lizama MD Work Phone: [facility] 11-25-2022 11:18-0500 Body temperature 97.59 [degF] Anca Almonte MD Work Phone: [facility] 11-25-2022 11:18-0500 Body weight 100.7 kg Lab/Port Wstr Work Phone: [facility] 11-25-2022 11:18-0500 Diastolic blood pressure 60 mm[Hg] Anca Almonte MD Work Phone: [facility] 11-25-2022 11:18-0500 Heart rate 74 /min Anca Almonte MD Work Phone: [facility] 11-25-2022 11:18-0500 Systolic blood pressure 123 mm[Hg] Anca Almonte MD Work Phone: [facility] 11-07-2022 13:20-0500 Body weight 101.15 kg NA Lemus PA-C Work Phone: [facility] 11-07-2022 13:20-0500 Diastolic blood pressure 88 mm[Hg] NA Lemus PA-C Work Phone: [facility] 11-07-2022 13:20-0500 Heart rate 82 /min NA Lemus PA-C Work Phone: [facility] 11-07-2022 13:20-0500 Respiratory rate 20 /min NA Lemus PA-C Work Phone: [facility] 11-07-2022 13:20-0500 SaO2% (BldA) [Mass fraction] 99 % NA Lemus PA-C Work Phone: [facility] 11-07-2022 13:20-0500 Systolic blood pressure 166 mm[Hg] NA Lemus PA-C Work Phone: [facility] 10-30-2022 10:59-0500 Body temperature 97.59 [degF] Treatment Wstr Work Phone: [facility] 10-30-2022 10:59-0500 Diastolic blood pressure 69 mm[Hg] Treatment Wstr Work Phone: [facility] 10-30-2022 10:59-0500 Heart rate 65 /min Treatment Wstr Work Phone: [facility] 10-30-2022 10:59-0500 SaO2% (BldA) [Mass fraction] 99 % Treatment Wstr Work Phone: [facility] 10-30-2022 10:59-0500 Systolic blood pressure 169 mm[Hg] Treatment Wstr Work Phone: [facility] 10-28-2022 12:09-0500 Diastolic blood pressure 84 mm[Hg] Woodway Coppola ROLL CUTTING OPERATOR.COMPENSATION ASSOCIATE Work Phone: [facility] 10-28-2022 12:09-0500 Systolic blood pressure 168 mm[Hg] Brendon Coppola ROLL CUTTING OPERATOR.COMPENSATION ASSOCIATE Work Phone: [facility] 10-28-2022 11:03-0500 Body temperature 97.9 [degF] Woodway Coppola ROLL CUTTING OPERATOR.COMPENSATION ASSOCIATE Work Phone: [facility] 10-28-2022 11:03-0500 Body weight 101.15 kg Brendon Coppola ROLL CUTTING OPERATOR.COMPENSATION ASSOCIATE Work Phone: [facility] 10-28-2022 11:03-0500 Heart rate 73 /min Brendon Coppola ROLL CUTTING OPERATOR.COMPENSATION ASSOCIATE Work Phone: [facility] 10-03-2022 14:14-0500 Body temperature 97.7 [degF] Injection Wstr Work Phone: [facility] 10-03-2022 14:14-0500 Body weight 102.06 kg Injection Wstr Work Phone: [facility] 10-03-2022 14:14-0500 Diastolic blood pressure 84 mm[Hg] Injection Wstr Work Phone: [facility] 10-03-2022 14:14-0500 Heart rate 60 /min Injection Wstr Work Phone: [facility] 10-03-2022 14:14-0500 Systolic blood pressure 158 mm[Hg] Injection Wstr Work Phone: [facility] 10-02-2022 11:20-0500 Body temperature 98.4 [degF] Treatment Wstr Work Phone: [facility] 10-02-2022 11:20-0500 Diastolic blood pressure 81 mm[Hg] Treatment Wstr Work Phone: [facility] 10-02-2022 11:20-0500 Heart rate 67 /min Treatment Wstr Work Phone: [facility] 10-02-2022 11:20-0500 SaO2% (BldA) [Mass fraction] 98 % Treatment Wstr Work Phone: [facility] 10-02-2022 11:20-0500 Systolic blood pressure 169 mm[Hg] Treatment Wstr Work Phone: [facility] 10-02-2022 10:00-0500 Body weight 102.06 kg Treatment Wstr Work Phone: [facility] 10-02-2022 10:00-0500 Respiratory rate 18 /min Treatment Wstr Work Phone: [facility] 10-01-2022 09:00-0500 Diastolic blood pressure 76 mm[Hg] Treatment Wstr Work Phone: [facility] 10-01-2022 09:00-0500 Heart rate 59 /min Treatment Wstr Work Phone: [facility] 10-01-2022 09:00-0500 Systolic blood pressure 194 mm[Hg] Treatment Wstr Work Phone: [facility] 10-01-2022 08:15-0500 Body temperature 97.59 [degF] Treatment Wstr Work Phone: [facility] 09-03-2022 13:00-0500 Body temperature 97.59 [degF] Treatment Wstr Work Phone: [facility] 09-03-2022 13:00-0500 Diastolic blood pressure 81 mm[Hg] Treatment Wstr Work Phone: [facility] 09-03-2022 13:00-0500 Heart rate 59 /min Treatment Wstr Work Phone: [facility] 09-03-2022 13:00-0500 Respiratory rate 18 /min Treatment Wstr Work Phone: [facility] 09-03-2022 13:00-0500 SaO2% (BldA) [Mass fraction] 99 % Treatment Wstr Work Phone: [facility] 09-03-2022 13:00-0500 Systolic blood pressure 158 mm[Hg] Treatment Wstr Work Phone: [facility] 09-02-2022 12:47-0500 Diastolic blood pressure 94 mm[Hg] Treatment Wstr Work Phone: [facility] 09-02-2022 12:47-0500 Heart rate 71 /min Treatment Wstr Work Phone: [facility] 09-02-2022 12:47-0500 Systolic blood pressure 185 mm[Hg] Treatment Wstr Work Phone: [facility] 09-02-2022 08:11-0500 Body temperature 98.49 [degF] Treatment Wstr Work Phone: [facility] 09-02-2022 08:11-0500 SaO2% (BldA) [Mass fraction] 97 % Treatment Wstr Work Phone: [facility] 08-30-2022 13:29-0500 Body temperature 97.59 [degF] Melba Escudero MD Work Phone: [facility] 08-30-2022 13:29-0500 Body weight 99.79 kg Melba Escudero MD Work Phone: [facility] 08-30-2022 13:29-0500 Diastolic blood pressure 74 mm[Hg] Melba Escudero MD Work Phone: [facility] 08-30-2022 13:29-0500 Heart rate 65 /min Melba Escudero MD Work Phone: [facility] 08-30-2022 13:29-0500 Systolic blood pressure 145 mm[Hg] Melba Escudero MD Work Phone: [facility] 08-04-2022 15:00-0500 Body temperature 98.6 [degF] Dr. Sylvia Lizama Work Phone: [facility] Work Phone: 08-04-2022 15:00-0500 Diastolic blood pressure 70 mm[Hg] Dr. Sylvia Lizama Work Phone: [facility] Work Phone: 08-04-2022 15:00-0500 Heart rate 70 /min Dr. Sylvia Lizama Work Phone: [facility] Work Phone: 08-04-2022 15:00-0500 Respiratory rate 18 /min Dr. Sylvia Lizama Work Phone: [facility] Work Phone: 08-04-2022 15:00-0500 SaO2% (BldA) [Mass fraction] 95 % Dr. Sylvia Lizama Work Phone: [facility] Work Phone: 08-04-2022 15:00-0500 Systolic blood pressure 154 mm[Hg] Dr. Sylvia Lizama Work Phone: [facility] Work Phone: 08-02-2022 21:12-0500 Inhaled oxygen flow rate 1.5 L/min Dr. Sylvia Lizama Work Phone: [facility] Work Phone: 08-02-2022 05:25-0500 Body height 157.[address] Sylvia Lizama Work Phone: [facility] Work Phone: 08-02-2022 05:25-0500 Body mass index (BMI) [Ratio] 38.9 kg/m2 Dr. Sylvia Lizama Work Phone: [facility] Work Phone: 08-02-2022 05:25-0500 Body weight 96.[address] Sylvia Lizama Work Phone: [facility] Work Phone: 07-23-2022 10:06-0400 Body temperature 98.6 [degF] Melba Escudero MD Work Phone: [facility] 07-23-2022 10:06-0400 Body weight 98.2 kg Melba Escudero MD Work Phone: [facility] 07-23-2022 10:06-0400 Diastolic blood pressure 61 mm[Hg] Melba Escudero MD Work Phone: [facility] 07-23-2022 10:06-0400 Heart rate 79 /min Melba Escudero MD Work Phone: [facility] 07-23-2022 10:06-0400 SaO2% (BldA) [Mass fraction] 96 % Melba Escudero MD Work Phone: [facility] 07-23-2022 10:06-0400 Systolic blood pressure 110 mm[Hg] Melba Escudero MD Work Phone: [facility] 06-28-2022 09:00-0400 Body temperature 98.1 [degF] Treatment Wstr Work Phone: [facility] 06-28-2022 09:00-0400 Diastolic blood pressure 59 mm[Hg] Treatment Wstr Work Phone: [facility] 06-28-2022 09:00-0400 Heart rate 69 /min Treatment Wstr Work Phone: [facility] 06-28-2022 09:00-0400 Systolic blood pressure 153 mm[Hg] Treatment Wstr Work Phone: [facility] 06-19-2022 09:52-0400 Body temperature 98.01 [degF] César Masci DO Work Phone: [facility] 06-19-2022 09:52-0400 Body weight 100.47 kg César Masci DO Work Phone: [facility] 06-19-2022 09:52-0400 Diastolic blood pressure 50 mm[Hg] César Masci DO Work Phone: [facility] 06-19-2022 09:52-0400 Heart rate 65 /min César Masci DO Work Phone: [facility] 06-19-2022 09:52-0400 Systolic blood pressure 115 mm[Hg] César Megani DO Work Phone: [facility] 06-10-2022 15:17-0400 Body height 157.5 cm Tima Ovando PA-C Work Phone: [facility] 06-10-2022 15:17-0400 Body temperature 97.39 [degF] Tima Ovando PA-C Work Phone: [facility] 06-10-2022 15:17-0400 Body weight 100.7 kg Tima Nicholas PA-C Work Phone: [facility] 06-10-2022 15:17-0400 Diastolic blood pressure 62 mm[Hg] Tima Ovando PA-C Work Phone: [facility] 06-10-2022 15:17-0400 Heart rate 86 /min Tima Ovando PA-C Work Phone: [facility] 06-10-2022 15:17-0400 SaO2% (BldA) [Mass fraction] 94 % Tima Nicholas PA-C Work Phone: [facility] 06-10-2022 15:17-0400 Systolic blood pressure 142 mm[Hg] Tima Ovando PA-C Work Phone: [facility] 05-31-2022 08:45-0400 Body height 157.5 cm Pacc 1 Work Phone: [facility] 05-31-2022 08:45-0400 Body temperature 97.2 [degF] Pacc 1 Work Phone: [facility] 05-31-2022 08:45-0400 Body weight 100.25 kg Pacc 1 Work Phone: [facility] 05-31-2022 08:45-0400 Diastolic blood pressure 58 mm[Hg] Pacc 1 Work Phone: [facility] 05-31-2022 08:45-0400 Heart rate 72 /min Pacc 1 Work Phone: [facility] 05-31-2022 08:45-0400 Respiratory rate 16 /min Pacc 1 Work Phone: [facility] 05-31-2022 08:45-0400 SaO2% (BldA) [Mass fraction] 97 % Pac 1 Work Phone: [facility] 05-31-2022 08:45-0400 Systolic blood pressure 118 mm[Hg] Pacc 1 Work Phone: [facility] 05-28-2022 14:50-0400 Body height 157.5 cm Zeny Crowder MD Work Phone: [facility] 05-28-2022 14:50-0400 Body temperature 97.7 [degF] Zeny Crowder MD Work Phone: [facility] 05-28-2022 14:50-0400 Body weight 101.06 kg Zeny Crowder MD Work Phone: [facility] 05-28-2022 14:50-0400 Diastolic blood pressure 72 mm[Hg] Zeny Crowder MD Work Phone: [facility] 05-28-2022 14:50-0400 Heart rate 86 /min Zeny Crowder MD Work Phone: [facility] 05-28-2022 14:50-0400 SaO2% (BldA) [Mass fraction] 96 % Zeny Crowder MD Work Phone: [facility] 05-28-2022 14:50-0400 Systolic blood pressure 148 mm[Hg] Zeny Crowder MD Work Phone: [facility] 05-13-2022 11:36-0400 Body temperature 98.1 [degF] Helen Haney-Uli ROLL CUTTING OPERATOR.COMPENSATION ASSOCIATE Work Phone: [facility] 05-13-2022 11:36-0400 Body weight 100.15 kg Helen Haney-Uli ROLL CUTTING OPERATOR.COMPENSATION ASSOCIATE Work Phone: [facility] 05-13-2022 11:36-0400 Diastolic blood pressure 82 mm[Hg] Helen Prajeffersonler-Uli ROLL CUTTING OPERATOR.COMPENSATION ASSOCIATE Work Phone: [facility] 05-13-2022 11:36-0400 Heart rate 75 /min Helen Praisler-Wood ROLL CUTTING OPERATOR.COMPENSATION ASSOCIATE Work Phone: [facility] 05-13-2022 11:36-0400 Respiratory rate 22 /min Helen Praisler-Wood ROLL CUTTING OPERATOR.COMPENSATION ASSOCIATE Work Phone: [facility] 05-13-2022 11:36-0400 SaO2% (BldA) [Mass fraction] 97 % Helen Praisler-Wood ROLL CUTTING OPERATOR.COMPENSATION ASSOCIATE Work Phone: [facility] 05-13-2022 11:36-0400 Systolic blood pressure 130 mm[Hg] Helen Praisler-Wood ROLL CUTTING OPERATOR.COMPENSATION ASSOCIATE Work Phone: [facility] 05-07-2022 09:00-0400 Body height 157.5 cm Zeny Crowder MD Work Phone: [facility] 05-07-2022 09:00-0400 Body temperature 97.3 [degF] Zeny Crowder MD Work Phone: [facility] 05-07-2022 09:00-0400 Body weight 100.7 kg Zeny Crowder MD Work Phone: [facility] 05-07-2022 09:00-0400 Diastolic blood pressure 74 mm[Hg] Zeny Crowder MD Work Phone: [facility] 05-07-2022 09:00-0400 Heart rate 92 /min Zeny Crowder MD Work Phone: [facility] 05-07-2022 09:00-0400 SaO2% (BldA) [Mass fraction] 99 % Zeny Crowder MD Work Phone: [facility] 05-07-2022 09:00-0400 Systolic blood pressure 128 mm[Hg] Zeny Crowder MD Work Phone: [facility] 04-22-2022 15:43-0400 Diastolic blood pressure 90 mm[Hg] Sylvia Lizama MD Work Phone: [facility] 04-22-2022 15:43-0400 Systolic blood pressure 144 mm[Hg] Sylvia Lizama MD Work Phone: [facility] 04-22-2022 [id number] Body height 157.5 cm Sylvia Lizama MD Work Phone: [facility] 04-22-2022 [id number] Body weight 101.61 kg Sylvia Lizama MD Work Phone: [facility] 04-22-2022 15:23-0400 Heart rate 67 /min Sylvia Lizama MD Work Phone: [facility] 04-22-2022 15:23-0400 SaO2% (BldA) [Mass fraction] 98 % Sylvia Lizama MD Work Phone: [facility] 01-29-2022 16:24-0400 Body temperature 98.91 [degF] Melba Escudero MD Work Phone: [facility] 01-29-2022 16:24-0400 Body weight 98.66 kg Melba Escudero MD Work Phone: [facility] 01-29-2022 16:24-0400 Diastolic blood pressure 52 mm[Hg] Melba Escudero MD Work Phone: [facility] 01-29-2022 16:24-0400 Heart rate 71 /min Melba Escudero MD Work Phone: [facility] 01-29-2022 16:24-0400 SaO2% (BldA) [Mass fraction] 97 % Melba Escudero MD Work Phone: [facility] 01-29-2022 16:24-0400 Systolic blood pressure 122 mm[Hg] Melba Escudero MD Work Phone: [facility] 09-13-2020 14:30-0500 BP Diastolic 60 mm[Hg] [facility] , [place] 09-13-2020 14:30-0500 BP Systolic 132 mm[Hg] [facility] , [place] 09-13-2020 14:30-0500 Pulse (Heart Rate) 85 /min [facility], [place] 09-13-2020 14:30-0500 Pulse Oximetry 96 % Pavle Watts [facility] , [place] 09-13-2020 14:30-0500 Respiratory Rate 18 /min Pavel Hurley [facility], [place] 09-13-2020 11:48-0500 BMI (Body Mass Index) 42.98 kg/m2 Pavel Hurley [facility], [place] 09-13-2020 11:48-0500 Body Temperature 98.71 [degF] Pavel Hurley [facility] , [place] 09-13-2020 11:48-0500 Body weight 106.59 kg Pavel Watts [facility] , [place] 09-13-2020 11:48-0500 Height 157.5 cm [facility] , [place] 09-06-2020 20:25-0500 Body Temperature 98.49 [degF] [facility] [place] [facility] 20:25-0500 BP Diastolic 70 mm[Hg] [facility] , [place] 09-06-2020 20:25-0500 BP Systolic 133 mm[Hg] [facility] , [place] 09-06-2020 20:25-0500 Pulse (Heart Rate) 80 /min [facility], [place] 09-06-2020 20:25-0500 Respiratory Rate 22 /min Kaden [facility], [place] 09-06-2020 17:04-0500 Pulse Oximetry 94 % Kaden [facility] , [place] 09-06-2020 15:49-0500 BMI (Body Mass Index) 42.98 kg/m2 Kaden [facility], [place] 09-06-2020 15:49-0500 Body weight 106.59 kg Kaden [facility] , [place] 09-06-2020 15:49-0500 Height 157.5 cm [place], [place] NEGATED: Highlighted [id number] 11:06-0400 Body height 156.21 cm Roselia Tanner LPN [facility] Work Phone: NEGATED: Highlighted [id number] 11:06-0400 Body height 156 cm [facility] Work Phone: NEGATED: Highlighted [id number] 11:06-0400 Body mass index (BMI) [Ratio] 38.43 kg/m2 [facility] Work Phone: NEGATED: Highlighted [id number] 11:06-0400 Body weight 93.44 kg [facility] Work Phone: NEGATED: Highlighted [id number] 11:06-040 Body weight 94 kg [facility] Work Phone: Encounters Encounter Date Encounter Type Care Provider Facility Start: 05-10-2025 End: 05-10-2025 Office outpatient visit 15 minutes Judith Pickard ROLL CUTTING OPERATOR.COMPENSATION ASSOCIATE Work Phone: [facility] Comment on above: Essential tremor (Pr imary Dx); Chronic migraine without aura, with intractable migraine, so stated, with status migrainosus; Essential hypertension; Chronic kidney disease, unspecified CKD stage; Hypothyroidism, unspecified type Start: 05-10-2025 End: 05-10-2025 ambulatory JUDITH A SUPPAN Facility:[facility] Start: 05-10-2025 End: 05-11-2025 OT/PT/Speech Visit Elida Pennington PT [facility] Comment on above: Disorder of labyrint h, unspecified laterality; Migraine with aura, not intractable, without status migrainosus Start: 04-22-2025 End: 04-22-2025 Telephone encounter Sylvia Lizama MD Work Phone: [facility] Comment on above: increased BP reading Start: 04-15-2025 End: 04-15-2025 Office outpatient visit 25 minutes Judith Pickard ROLL CUTTING OPERATOR.COMPENSATION ASSOCIATE Work Phone: [facility] Comment on above: Disorder of labyrint h, unspecified laterality (Primary Dx); Migraine with aura, not intractable, without status migrainosus; Neuropathy Start: 04-15-2025 End: 04-15-2025 ambulatory JUDITH PICKARD Facility:[facility] Start: 04-12-2025 End: 04-12-2025 Telephone encounter Judith Lizy Foxarnulfo BURCH Work Phone: [facility] Start: 04-05-2025 Non-patient / Non-visit Dr. Andrade Salcedo [facility] Work Phone: Start: 04-04-2025 Non-patient / Non-visit Dr. Andrade Salcedo [facility] Work Phone: Start: 04-03-2025 Non-patient / Non-visit Dr. Andrade Salcedo [facility] Work Phone: Start: 04-02-2025 ambulatory Andrade Tapia Facility:[facility] Start: 04-02-2025 Non-patient / Non-visit Dr. Andrade Salcedo [facility] Work Phone: Start: 04-01-2025 Non-patient / Non-visit Dr. Andrade Salcedo [facility] Work Phone: Start: 04-01-2025 End: 04-05-2025 Evaluation and management of inpatient Dr. 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) Start: 03-14-2025 End: 03-14-2025 ambulatory GINI AYALA Facility:[facility] Start: 03-14-2025 End: 03-14-2025 Office outpatient visit 25 minutes Gini Ayala APRN.COMPENSATION ASSOCIATE Work Phone: [facility] [place] Comment on above: Essential hypertensi on (Primary Dx) Start: 03-14-2025 End: 03-14-2025 ambulatory CÉSAR Lizy SUGGS Facility:[facility] Start: 03-14-2025 End: 03-14-2025 Subsequent hospital visit by physician Faith [facility] ([facility]) Work Phone: Cat Scan Comment on above: 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) [C82.08] Start: 03-01-2025 End: 03-01-2025 ambulatory JUDITH A SUPPARNULFO Facility:[facility] Start: 03-01-2025 End: 03-01-2025 Patient encounter procedure Judith Pickard APRN.COMPENSATION ASSOCIATE Work Phone: [facility] [place] Comment on above: Initial Medicare ann ual wellness visit (Primary Dx); Neuropathy; Screening for cholesterol level; Screening for diabetes mellitus; Cognitive changes; Mixed hyperlipidemia; B-cell lymphoma, unspecified B-cell lymphoma type, unspecified body region (HCC); Debility; Chronic kidney disease, unspecified CKD stage; Hypothyroidism, unspecified type; Spinal stenosis, lumbar region, with neurogenic claudication Start: 02-24-2025 End: 02-24-2025 ambulatory Harini Martinez RN Work Phone: Director Of Partner Marketing Management Comment on above: Primary Care Coordin ator- Other (Chart review) Start: 12-28-2024 End: 12-28-2024 ambulatory JUDITH A SUPPAN Facility:[facility] Start: 12-28-2024 End: 12-28-2024 Patient encounter procedure Sylvia Lizama MD Work Phone: [facility] [place] Comment on above: Urinary tract infect ion without hematuria, site unspecified (Primary Dx); Debility; Essential hypertension; Mixed hyperlipidemia; Chronic kidney disease, unspecified CKD stage; Hypothyroidism, unspecified type; B-cell lymphoma, unspecified B-cell lymphoma type, unspecified body region (HCC); 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); Spinal stenosis, lumbar region, with neurogenic claudication; Anxiety with depression; Body mass index (BMI) 40.0-44.9, adult (HCC); Neuropathy; Tremor; Urinary incontinence, unspecified type Start: 12-20-2024 End: 12-23-2024 Patient Outreach Sylvia Lizama MD Work Phone: [facility] Comment on above: Transition Of Care Elevated BP- TCM enc ounter Start: 12-15-2024 End: 12-15-2024 Patient encounter procedure Christina Knox NP- -[place] [place] [facility] Work Phone: Start: 12-15-2024 End: 12-15-2024 ambulatory Christina Knox NP [facility] Start: 12-15-2024 Registered Referred Rafat Dexter Start: 12-10-2024 End: 12-10-2024 ambulatory CÉSAR SUGGS Facility:[facility] Start: 12-10-2024 End: 12-10-2024 Office outpatient visit 15 minutes César Suggs DO Work Phone: Hematology/Oncology Comment on above: 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 Rafat Casper MD -[place] [facility] Work Phone: Start: 12-02-2024 End: 12-02-2024 Patient encounter procedure Christina MALONE -[place] [place] [facility] Work Phone: Start: 12-02-2024 End: 12-02-2024 ambulatory Christina Knox TOUR ACTOR Facility[place] Start: 12-02-2024 Registered Referred Rafat Casper MD -[facility] Start: 12-01-2024 Non-patient / Non-visit Dr. Hanh Joiner MD -[place] [facility] Work Phone: Start: 11-30-2024 Non-patient / Non-visit Dr. Sandee LARIOS [facility] Work Phone: Start: 11-29-2024 Non-patient / Non-visit Dr. Alysha connolly MD -[place] [facility] Work Phone: Start: 11-28-2024 Non-patient / Non-visit Dr. Alysha connolly MD -[place] [facility] Work Phone: Start: 11-27-2024 ambulatory Jaxson Tucker ility:[facility] Start: 11-27-2024 End: 12-01-2024 Evaluation and management of inpatient Dr. Kenyon Joiner MD -[facility] Unit Work Phone: Start: 11-27-2024 Non-patient / Non-visit Dr. Alysha connolly MD -[place] [facility] Work Phone: Start: 11-26-2024 ambulatory Jaxson Tucker ility:[facility] Start: 11-26-2024 Evaluation and manag ement of inpatient Dr. Jaxson Meehan DO -[facility] Unit Work Phone: Start: 11-26-2024 Non-patient / Non-visit Dr. Sandee LARIOS [facility] Work Phone: Start: 11-26-[address] Haja Lizama MD Work Phone: [facility] Work Phone: Start: 11-26-2024 End: 11-26-2024 Telephone encounter César Suggs DO Work Phone: Hematology/Oncology Comment on above: Patient Update Start: 11-15-2024 End: 11-15-2024 Follow-up encounter Judith Pickard ROLL CUTTING OPERATOR.COMPENSATION ASSOCIATE Work Phone: Family [facility] [place] Start: 11-12-2024 End: 11-12-2024 Office outpatient visit 15 minutes Judith Pickard ROLL CUTTING OPERATOR.COMPENSATION ASSOCIATE Work Phone: Family [facility] [place] Comment on above: Essential hypertensi on (Primary Dx); Migraine without aura and without status migrainosus, not intractable; Hypothyroidism due to acquired atrophy of thyroid; Anxiety with depression; GERD without esophagitis; Viral URI Start: 11-12-2024 End: 11-12-2024 ambulatory JUDITH PICKARD Facility:[facility] Start: 11-12-2024 End: 11-12-2024 ambulatory CÉSAR SUGGS Facility:[facility] Start: 11-12-2024 End: 11-12-2024 Subsequent hospital visit by physician Faith [facility] ([facility]) Work Phone: Cat Scan Comment on above: 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 Zeny Wolff DO -Emergency Department Work Phone: Start: 11-02-2024 End: 01-02-2025 Refill César Suggs DO Work Phone: Hematology/Oncology Comment on above: Refill Request Results Start: 11-01-2024 End: 11-01-2024 Subsequent hospital visit by physician Hellen [facility] [place] Work Phone: Radiology Comment on above: Acute cough [R05.1] Start: 11-01-2024 End: 11-01-2024 ambulatory SYLVIA LIZAMA Facility:[facility] Start: 11-01-2024 End: 11-01-2024 Patient encounter procedure Elida Lozada APRN.COMPENSATION ASSOCIATE [facility] Comment on above: Burning with urinati on (Primary Dx); Acute cough; URI, acute Start: 10-08-2024 End: 10-08-2024 ambulatory Treatment Rm 5 Scott [facility] Work Phone: Hematology/Oncology Comment on above: 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) Start: 10-01-2024 End: 10-01-2024 ambulatory Treatment Rm 9 [facility] Work Phone: Hematology/Oncology Comment on above: 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) Start: 09-24-2024 End: 09-24-2024 ambulatory Treatment Rm 10 [facility] Work Phone: Hematology/Oncology Comment on above: 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) Start: 09-20-2024 End: 09-20-2024 Telephone encounter Chinyere Shea RN Work Phone: Hematology/Oncology Comment on above: Care Coordination (C YCLE 1/DAY 1 POST TREATMENT CALL ) Start: 09-17-2024 End: 09-17-2024 ambulatory Treatment Rm 2 [facility] Work Phone: Hematology/Oncology Comment on above: [...] Shannon Hui RN Hematology/Oncology Comment on above: Conductor/Engineer - O ther (Introduction/change in treatment ) avs Start: 09-03-2024 End: 09-03-2024 ambulatory CÉSAR WOODLebron Facility:[facility] Start: 09-03-2024 End: 09-03-2024 ambulatory CÉSAR SUGGS Facility:[facility] Start: 09-03-2024 End: 09-03-2024 Office outpatient visit 25 minutes César Suggs DO Work Phone: Hematology/Oncology Comment on above: 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) Start: 08-27-2024 End: 08-27-2024 ambulatory BRENDON COPPOLA Facility:[facility] Start: 08-27-2024 End: 08-27-2024 ambulatory SYLVIA LIZAMA Facility:[facility] Start: 08-27-2024 End: 08-27-2024 Subsequent hospital visit by physician Ct [facility] ([facility]) Work Phone: Cat Scan Comment on above: 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] Start: 08-12-2024 End: 08-12-2024 ambulatory MISSY HIRSCH Facility:[facility] Start: 08-12-2024 End: 08-12-2024 Subsequent hospital visit by physician Mri Radio [facility] (I-Stat/1.5t) Work Phone: Radiology Comment on above: Worsening headaches [R51.9] Start: 08-11-2024 End: 08-11-2024 ambulatory Sylvia Lizama MD Work Phone: [facility] [place] Comment on above: low blood pressure Start: 07-28-2024 End: 07-28-2024 Telephone encounter Missy Hirsch PA-C Work Phone: Neurology Comment on above: Insurance Authorizat ion (Prior authorization [employer]) Results Start: 07-27-2024 End: 07-27-2024 ambulatory JUDITH PICKARD Facility:[facility] Start: 07-27-2024 End: 07-27-2024 Patient encounter procedure Missy Hirsch PA-C Work Phone: Neurology Comment on above: Worsening headaches (Primary Dx); Disorder of labyrinth, unspecified laterality; Intractable chronic migraine with aura and without status migrainosus Burning with urinati on (Primary Dx); Acute cystitis with hematuria Start: 07-27-2024 End: 07-27-2024 ambulatory MISSY HIRSCH Facility:[facility] Start: 07-14-2024 End: 07-14-2024 ambulatory FRANKLYN JUARES Facility:[facility] Start: 07-14-2024 End: 07-14-2024 Patient encounter procedure Franklyn Juares MD Work Phone: Ophthalmology Comment on above: Combined forms of ag e-related cataract of both eyes (Primary Dx); Other headache syndrome; Ocular hypertension, bilateral; Optic cupping of both eyes; Essential hypertension; Sleep apnea, unspecified type; Hypothyroidism, unspecified type; History of blood clots; Anxiety with depression Start: 07-09-2024 End: 07-09-2024 ambulatory BRENDON HARRISON[place]G Facility:[facility] Start: 07-09-2024 End: 07-09-2024 Subsequent hospital visit by physician Screen Mammo [facility] Comment on above: 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] Start: 07-06-2024 End: 07-06-2024 Office outpatient visit 25 minutes Judith Pickard APRN.CNP Work Phone: [facility] Comment on above: Disorder of labyrint h, unspecified laterality (Primary Dx); Essential hypertension; Impacted cerumen, unspecified laterality; Dizziness Start: 07-06-2024 End: 07-06-2024 ambulatory JUDITH Lizy PICKARD Facility:[facility] Start: 07-04-2024 End: 07-04-2024 ambulatory Layla Malave RN NURSE ASSOCIATE MANAGER [employer]FF[employer] MARKETING Comment on above: Hypertension Start: 07-04-2024 End: 07-04-2024 Emergency department patient visit Sylvia Lizama Facility:[facility] Start: 07-02-2024 End: 07-02-2024 ambulatory JUDITH PICKARD Facility:[facility] Start: 07-02-2024 End: 07-02-2024 Office outpatient visit 15 minutes Judith A Suppan ROLL CUTTING OPERATOR.COMPENSATION ASSOCIATE Work Phone: [facility] [place] Comment on above: Vision changes (Prim chelsea Dx); Disorder of labyrinth, unspecified laterality; Acute frontal sinusitis, recurrence not specified Start: 06-30-2024 End: 07-01-2024 Telephone encounter Sylvia Lizama MD Work Phone: [facility] [place] Comment on above: Future Appointment Start: 06-17-2024 End: 06-17-2024 Office outpatient visit 25 minutes Judith A Suppan ROLL CUTTING OPERATOR.COMPENSATION ASSOCIATE Work Phone: [facility] [place] Comment on above: History of DVT (deep vein thrombosis) (Primary Dx); Essential hypertension; Migraine without aura and without status migrainosus, not intractable; Hypothyroidism, unspecified type; Urge incontinence; Hair loss; Angioedema, subsequent encounter; Hypopotassemia Start: 06-17-2024 End: 06-17-2024 ambulatory JUDITH A SUPPAN Facility:[facility] Start: 05-25-2024 End: 05-27-2024 ambulatory Judith A Suppan ROLL CUTTING OPERATOR.COMPENSATION ASSOCIATE Work Phone: [facility] [place] Comment on above: Lsia info about m jacksons we are watching Start: 05-18-2024 End: 05-18-2024 Office outpatient visit 15 minutes Judith A Suppan ROLL CUTTING OPERATOR.COMPENSATION ASSOCIATE Work Phone: [facility] [place] Comment on above: Migraine without aur a and without status migrainosus, not intractable (Primary Dx); Left arm pain; Neck pain; DDD (degenerative disc disease), lumbar; Essential hypertension; Pure hypercholesterolemia; Orthostatic dizziness; Dizziness Start: 05-18-2024 End: 05-18-2024 ambulatory JUDITH A SUPPAN Facility:[facility] Start: 05-12-2024 End: 05-12-2024 Telephone encounter Sathya Rajan MD Work Phone: [place] [facility] Comment on above: Results (Urine Cx mi xed) Start: 05-11-2024 End: 05-11-2024 Patient encounter procedure Enid Potter ROLL CUTTING OPERATOR.COMPENSATION ASSOCIATE Work Phone: [facility] Comment on above: Urinary frequency (P rimary Dx) Start: 05-08-2024 End: 05-08-2024 Emergency department patient visit [facility] Facility:[facility] Start: 05-03-2024 End: 05-03-2024 Office outpatient visit 15 minutes Judith Pickard ROLL CUTTING OPERATOR.COMPENSATION ASSOCIATE Work Phone: [facility] Comment on above: Essential hypertensi on (Primary Dx); GERD without esophagitis; Diarrhea, unspecified type Start: 04-29-2024 End: 04-29-2024 Subsequent hospital visit by physician Zeny Crowder MD Work Phone: Ambulatory Surgery Comment on above: Diarrhea, unspecifie d type [R19.7] Start: 04-26-2024 Telephone encounter Brendon rapp ROLL CUTTING OPERATOR.COMPENSATION ASSOCIATE Work Phone: Hematology/Oncology Start: 04-19-2024 ambulatory Bozena dudley RN Work Phone: Director Of Partner Marketing Management Start: 04-19-2024 Telephone follow-up Bozena Hirsch RN Work Phone: Director Of Partner [employer] Management Comment on above: Transition Of Care ( TCM followup ) Weekly phone contact (Recurring) for Transitional Care Management Start: 04-15-2024 End: 04-15-2024 Subsequent hospital visit by physician Faith [facility] ([facility] Work Phone: Cat Scan Comment on above: 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] Soft tissue mass [M7 9.89] Start: 04-12-2024 ambulatory Bozena dudley RN Work Phone: Director Of Partner Marketing Management Start: 04-12-2024 Telephone follow-up Bozena Hirsch RN Work Phone: Director Of Partner [employer] Management Comment on above: Transition Of Care ( TCM OON follow up ) Weekly phone contact (Recurring) for Transitional Care Management Start: 04-08-2024 ambulatory Sylvia Lizama MD Work Phone: [facility] Comment on above: Hypotension Start: 04-08-2024 End: 04-08-2024 Office outpatient visit 15 minutes Judith Pickard APRN.COMPENSATION ASSOCIATE Work Phone: [facility] [place] Comment on above: BPPV (benign paroxys mal positional vertigo), unspecified laterality (Primary Dx) Start: 04-05-2024 ambulatory Kim mcneal RN Work Phone: Director Of Partner Marketing Management Start: 04-05-2024 Telephone follow-up Kim rivera RN Work Phone: Director Of Partner Marketing Management Comment on above: Transition Of Care ( Tcm follow up ) Weekly phone contact (Recurring) for Transitional Care Management Start: 04-03-2024 Refill Sylvia Lizama MD Work Phone: [facility] [place] Comment on above: Refill Request Start: 04-02-2024 End: 04-02-2024 Patient encounter procedure Sylvia Lizama MD Work Phone: [facility] [place] Comment on above: Diarrhea of infectio us [...] Telephone encounter Sylvia Lizama MD Work Phone: [facility] [place] Comment on above: Patient Update Start: 03-29-2024 End: 03-29-2024 Patient Outreach Bozena Hirsch RN Work Phone: Director Of Partner Marketing Management Comment on above: Transition Of Care ( TCM/ OON EDDI / [place] [facility] 03/26/24) Initial phone contact for Transitional Care Management Diarrhea, unspecifie d type Start: 03-24-2024 Telephone encounter Gini cowart APRN.COMPENSATION ASSOCIATE Work Phone: [facility] [place] Comment on above: Patient Update Start: 03-23-2024 Telephone encounter Gini cowart ROLL CUTTING OPERATOR.COMPENSATION ASSOCIATE Work Phone: [facility] [place] Comment on above: Results Start: 03-19-2024 Refill Judith A S uppan ROLL CUTTING OPERATOR.BRICK CHIMNEY BUILDER Work Phone: [facility] [place] Comment on above: Refill Request Start: 03-15-2024 ambulatory Abril nolen RN NURSE ASSOCIATE MANAGER [employer] MARKETING Comment on above: Fatigue; Viral Syndr ome Start: 03-15-2024 End: 03-15-2024 Office outpatient visit 25 minutes Gini Ayala ROLL CUTTING OPERATOR.COMPENSATION ASSOCIATE Work Phone: [facility] [place] Comment on above: Diarrhea, unspecifie d type (Primary Dx); Sinobronchitis Start: 03-05-2024 ambulatory Judith A S uppan ROLL CUTTING OPERATOR.BRICK CHIMNEY BUILDER Work Phone: [facility] [place] Comment on above: RESULTS Start: 03-05-2024 E-mail encounter [place] [facility] caregiver Judith A Suppan ROLL CUTTING OPERATOR.BRICK CHIMNEY BUILDER Work Phone: [facility] [place] Start: 03-04-2024 End: 03-04-2024 Office outpatient visit 25 minutes Judith A Suppan ROLL CUTTING OPERATOR.BRICK CHIMNEY BUILDER Work Phone: [facility] [place] Comment on above: Diarrhea, unspecifie d type (Primary Dx); Anxiety with depression; Chilling; Chills Start: 03-03-2024 ambulatory Sylvia Lizama MD Work Phone: [facility] [place] Comment on above: Diarrhea Start: 02-19-2024 End: 02-19-2024 Patient encounter procedure Shaila Rincon ROLL CUTTING OPERATOR.COMPENSATION ASSOCIATE Work Phone: OB/Gynecology Comment on above: Urinary incontinence without sensory awareness (Primary Dx) Start: 02-05-2024 End: 02-05-2024 Office outpatient visit 15 minutes Judith A Suppan ROLL CUTTING OPERATOR.BRICK CHIMNEY BUILDER Work Phone: [facility] [place] Comment on above: Anxiety with depress ion (Primary Dx); Left arm pain; Neck pain; DDD (degenerative disc disease), lumbar Start: 01-09-2024 Telephone encounter Sylvia Lizama MD Work Phone: [facility] [place] Comment on above: Dose Clarification ( Zoloft ) Start: 01-08-2024 Telephone encounter Brendon rapp ROLL CUTTING OPERATOR.COMPENSATION ASSOCIATE Work Phone: Hematology/Oncology Start: 01-07-2024 End: 01-07-2024 Patient encounter procedure Sylvia Lizama MD Work Phone: [facility] [place] Comment on above: Essential hypertensi on (Primary Dx); GERD without esophagitis; Mixed hyperlipidemia; Essential tremor; Hypothyroidism, unspecified type; B-cell lymphoma, unspecified B-cell lymphoma type, unspecified body region (HCC); Thrombocytopenia, secondary; Anxiety with depression; Bilateral carotid artery stenosis; History of DVT (deep vein thrombosis) Start: 01-02-2024 Telephone encounter Brendon Stevens enter ROLL CUTTING OPERATOR.COMPENSATION ASSOCIATE Work Phone: Hematology/Oncology Start: 12-30-2023 Telephone encounter Brendon rapp ROLL CUTTING OPERATOR.COMPENSATION ASSOCIATE Work Phone: Hematology/Oncology Comment on above: Results Start: 12-24-2023 End: 12-24-2023 Subsequent hospital visit by physician [facility] Comment on above: 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] Start: 11-09-2023 Telephone encounter Kimberly Altamirano APRN.COMPENSATION ASSOCIATE Work Phone: [facility] [facility] Comment on above: Results Start: 11-07-2023 End: 11-07-2023 Subsequent hospital visit by physician [facility] Work Phone: Radiology Comment on above: Neck mass [R22.1] Start: 2023 End: 2023 Patient encounter procedure Darrian HOPKINS Work Phone: [facility] Comment on above: Urinary frequency (P rimary Dx) Start: 10-27-2023 End: 10-27-2023 Patient encounter procedure Sathya Rajan MD Work Phone: [facility] [facility] Comment on above: URI, acute [...] Telephone encounter Sylvia Lizama MD Work Phone: [facility] [place] Comment on above: CPAP Supplies order Start: 07-08-2023 End: 07-08-2023 Patient encounter procedure Sylvia Lizama MD Work Phone: [facility] [place] Comment on above: Essential hypertensi on (Primary Dx); GERD without esophagitis; Mixed hyperlipidemia; Non-rheumatic tricuspid valve insufficiency; Essential tremor; Other migraine without status migrainosus, not intractable; CHRISTIANA (obstructive sleep apnea); Gastroesophageal reflux disease, unspecified whether esophagitis present; B-cell lymphoma, unspecified B-cell lymphoma type, unspecified body region (HCC); Hypothyroidism, unspecified type; correction current use of anticoagulant therapy; Valvular heart disease Start: 07-08-2023 Documentation procedure Mammog [place] Coordinator [facility] Start: 07-08-2023 Letter encounter Mammography Coordinator [facility] Department Start: 07-08-2023 End: 07-08-2023 Subsequent hospital visit by physician Screen Mammo [facility] Comment on above: Encounter for screen ing mammogram for malignant neoplasm of breast [Z12.31] Start: 06-13-2023 End: 06-13-2023 Patient encounter procedure Prince Fang MD Work Phone: [place] [facility] Start: 06-13-2023 End: 06-13-2023 ambulatory Lab/[facility] [place] [facility] Work Phone: Hematology/Oncology Comment on above: 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); 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) Encounter for screen ing mammogram for malignant neoplasm of breast (Primary Dx); 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) Start: 06-06-2023 End: 06-06-2023 ambulatory Lab/[facility] [place] [facility] Work Phone: Hematology/Oncology Comment on above: 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) Start: 06-06-2023 End: 06-06-2023 Subsequent hospital visit by physician [facility] ([facility]) Work Phone: Cat Scan Comment on above: 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] Start: 06-05-2023 Telephone encounter César sigala DO Work Phone: Hematology/Oncology Comment on above: Appointment Start: 05-13-2023 End: 05-13-2023 ambulatory Abdullahi Guerra PT Work Phone: [facility] Comment on above: Left arm pain (Prima ry Dx); Neck pain Start: 05-09-2023 End: 05-09-2023 ambulatory Abdullahi Guerra PT Work Phone: [facility] Comment on above: Left arm pain (Prima ry Dx); Neck pain Start: 05-06-2023 End: 05-06-2023 ambulatory Sidra Kashuba VP ORGANIZATIONAL DEVELOPMENT Work Phone: [facility] Comment on above: Left arm pain (Prima ry Dx); Neck pain Start: 04-29-2023 End: 04-29-2023 ambulatory Sidra Kashuba VP ORGANIZATIONAL DEVELOPMENT Work Phone: [facility] Comment on above: Left arm pain (Prima ry Dx); Neck pain Start: 04-25-2023 End: 04-25-2023 ambulatory Sidra Kashuba VP ORGANIZATIONAL DEVELOPMENT Work Phone: [facility] Comment on above: Left arm pain (Prima ry Dx) Start: 04-17-2023 End: 04-17-2023 Refill Sylvia Lizama MD Work Phone: [facility] Comment on above: Refill Request Opened In Error Upper back pain on l eft side (Primary Dx) Start: 04-03-2023 End: 04-03-2023 Subsequent hospital visit by physician Xr [facility] Work Phone: Radiology Comment on above: Left arm pain [M79.6 02] Start: 04-03-2023 End: 04-03-2023 Patient encounter procedure Sylvia Lizama MD Work Phone: [facility] Comment on above: Mixed hyperlipidemia (Primary Dx); [...] lumbar Start: 03-26-2023 Telephone encounter Elissa yañez APRN.COMPENSATION ASSOCIATE Work Phone: [facility] Comment on above: Results (Shoulder xr ay results ) Start: 03-24-2023 End: 03-24-2023 Subsequent hospital visit by physician Xr [facility] [place] Work Phone: Radiology Comment on above: Acute pain of left s houlder [M25.512] Start: 03-24-2023 End: 03-24-2023 Patient encounter procedure Elissa Felipe APRN.COMPENSATION ASSOCIATE Work Phone: [facility] Comment on above: Acute pain of left s houlder (Primary Dx); Muscle tension pain Start: 02-24-2023 End: 02-24-2023 ambulatory Treatment Rm 13 [facility] Work Phone: Hematology/Oncology Comment on above: [...] End: 12-30-2022 ambulatory Treatment Rm 12 [facility] Work Phone: Hematology/Oncology Comment on above: 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) Start: 12-25-2022 ambulatory Sylvia Lizama MD Work Phone: [facility] [place] Comment on above: Derm Problem Start: 12-25-2022 Telephone encounter Sylvia Lizama MD Work Phone: [facility] [place] Comment on above: Results Start: 12-25-2022 End: 12-25-2022 Office outpatient visit 15 minutes Gini Ayala APRN.COMPENSATION ASSOCIATE Work Phone: [facility] [place] Comment on above: Acute generalized ex anthematous [...] procedure Anca Almonte MD Work Phone: [facility] Start: 12-17-2022 Telephone encounter Anca dominguez MD Work Phone: Hematology/Oncology Comment on above: AVS 12/17/22 Start: 12-12-2022 Chart abstracting [facility] Work Phone: Neurology Comment on above: HSAT Check In (Adult ) Start: 12-09-2022 End: 12-09-2022 Patient encounter procedure Sylvia Lizama MD Work Phone: [facility] Comment on above: Essential hypertensi on Start: 12-09-2022 End: 12-09-2022 Subsequent hospital visit by physician Ct Prep [facility] Cat [facility] Comment on above: 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] Start: 11-27-2022 End: 11-27-2022 Patient encounter procedure Sylvia Lizama MD Work Phone: [facility] Comment on above: Essential tremor (Pr imary [...] Almonte MD Work Phone: [facility] Start: 11-25-2022 End: 11-25-2022 ambulatory Lab/Port [facility] Work Phone: Hematology/Oncology Comment on above: [...] Refill [facility] Norberto clayton PA-C Work Phone: [facility] Comment on above: Refill Request Start: 11-12-2022 Telephone encounter Anca dominguez MD Work Phone: Hematology/Oncology Comment on above: Patient Question (Sy mptoms) Start: 11-07-2022 End: 11-07-2022 Patient encounter procedure [facility] Norber[facility] Lemus PA-C Work Phone: [facility] Comment on above: Essential hypertensi on (Primary Dx); SOB (shortness of breath); B-cell lymphoma, unspecified B-cell lymphoma type, unspecified body region (HCC); Chronic respiratory failure with hypoxia (HCC); Intermittent lightheadedness Start: 11-04-2022 Telephone encounter Sylvia Lizama MD Work Phone: [facility] [place] Comment on above: Elevated BP Start: 10-30-2022 End: 10-30-2022 ambulatory Treatment Rm 11 [facility] Work Phone: Hematology/Oncology Comment on above: 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) Start: 10-28-2022 End: 10-28-2022 Patient encounter procedure Brendon Coppola APRN.COMPENSATION ASSOCIATE Work Phone: [facility] Start: 10-28-2022 End: 10-28-2022 ambulatory Lab/[facility] Work Phone: Hematology/Oncology Comment on above: 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); Thrombocytopenia, 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); Thrombocytopenia, secondary Start: 10-11-2022 ambulatory Shawna Pederson RN Work Phone: Director Of [employer] Comment on above: cdm (enrollment) Start: 10-04-2022 Telephone encounter Shannon Hui RN He matology/Oncology Comment on above: Conductor/Engineer - O ther (Symptoms ) Start: 10-03-2022 End: 10-03-2022 ambulatory Injection [facility] Work Phone: Hematology/Oncology Comment on above: 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) Start: 10-02-2022 End: 10-02-2022 ambulatory Treatment Rm 7 [facility] Work Phone: Hematology/Oncology Comment on above: 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) Start: 10-01-2022 Chart abstracting Edyta Whelan RN Hematology/Oncology Comment on above: Consent [id number] - Non-I nterventional Start: 10-01-2022 Telephone encounter Melba Escudero MD Work Phone: Hematology/Oncology Comment on above: Patient Update Appointment Start: 10-01-2022 End: 10-01-2022 ambulatory Treatment Rm 1 [facility] Work Phone: Hematology/Oncology Comment on above: 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) Start: 09-24-2022 End: 09-24-2022 ambulatory Lab/Port [facility] Work Phone: Hematology/Oncology Comment on above: 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) Start: 09-24-2022 End: 09-24-2022 Subsequent hospital visit by physician Ct Prep [facility] Cat Scan Comment on above: 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] Start: 09-20-2022 Orders Only César Reynolds Work Phone: Hematology/Oncology Comment on above: 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) Start: 09-03-2022 End: 09-03-2022 ambulatory Treatment Rm 9 [facility] Work Phone: Hematology/Oncology Comment on above: 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) Start: 09-02-2022 End: 09-02-2022 ambulatory Treatment Rm 1 [facility] Work Phone: Hematology/Oncology Comment on above: 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) Start: 08-30-2022 End: 08-30-2022 ambulatory Melba Escudero MD Work Phone: Hematology/Oncology Comment on above: 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) Start: 08-30-2022 End: 08-30-2022 Patient encounter procedure Melba Escudero MD Work Phone: [facility] Start: 08-19-2022 Refill Brendon kwok APRN.COMPENSATION ASSOCIATE Work Phone: Hematology/Oncology Comment on above: Refill Request Start: 08-12-2022 Telephone encounter Sylvia Lizama MD Work Phone: [facility] Comment on above: Appointment Start: 08-05-2022 Telephone encounter Chinyere clifford RN Work Phone: Hematology/Oncology Comment on above: Conductor/Engineer - H ospital Follow Up Start: 08-04-2022 Non-patient / Non-visit Dr. Cathryn Lizama Work Phone: [facility] Start: 08-04-2022 Non-patient / Non-visit Dr. Cathryn Lizama Work Phone: [facility] Start: 08-03-2022 Non-patient / Non-visit Dr. Cathryn Lizama Work Phone: [facility] Start: 08-02-2022 Non-patient / Non-visit Dr. Cathryn Lizama Work Phone: [facility] Start: 08-01-2022 Telephone encounter [facility] Comment on above: Appointment Start: 08-01-2022 Non-patient / Non-visit Dr. Cathryn Lizama Work Phone: [facility] Start: 07-31-2022 Telephone encounter Melba Escudero MD Work Phone: Hematology/Oncology Comment on above: Patient Update Start: 07-31-2022 Non-patient / Non-visit Dr. Cathryn Lizama Work Phone: [facility] Start: 07-31-2022 Non-patient / Non-visit Dr. Cathryn Lizama Work Phone: [facility] Start: 07-30-2022 Telephone encounter Chinyere clifford RN Work Phone: Hematology/Oncology Comment on above: Care Coordination (A dmitted to [facility]) Start: 07-30-2022 End: 08-04-2022 Evaluation and management of inpatient Dr. Sylvia Lizama Work Phone: [facility] Start: 07-26-2022 Telephone encounter Chinyere clifford RN Work Phone: Hematology/Oncology Comment on above: Care Coordination (T oxicity Check--Weakness, night sweats, mild diarrhea controlled with Imodium ) Start: 07-23-2022 End: 07-23-2022 Patient encounter procedure Melba Escudero MD Work Phone: [facility] Start: 07-23-2022 End: 07-23-2022 ambulatory Lab/Port [facility] Work Phone: Hematology/Oncology Comment on above: [...] 06-28-2022 End: 06-28-2022 ambulatory Treatment Rm 8 [facility] Work Phone: Hematology/Oncology Comment on above: 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) Start: 06-27-2022 Refill Melba Escudero MD Work Phone: Hematology/Oncology Comment on above: Refill Request Patient Update (/) Start: 06-19-2022 End: 06-19-2022 ambulatory César Suggs DO Work Phone: Hematology/Oncology Comment on above: 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) Start: 06-19-2022 End: 06-19-2022 Patient encounter procedure César Suggs DO Work Phone: [facility] Start: 06-11-2022 End: 06-11-2022 Nursing evaluation of patient and report Mi Nurse Work Phone: [facility] [place] Comment on above: Need for influenza v [...] Start: 06-05-2022 End: 06-05-2022 ambulatory ZENY CROWDER Facility:[facility] Start: 05-31-2022 End: 05-31-2022 Refill Brendon [...] Start: 05-31-2022 End: 05-31-2022 Preprocedural examination done Pac [place] 1 Work Phone: Pre Anesthesia Start: [...] [place] Comment on above: Refill Request Start: 05-23-2022 Telephone encounter Sylvia Lizama MD Work Phone: [facility] [place] Comment on above: Patient Question Start: 05-22-2022 [...] 05-13-2022 End: 05-13-2022 Patient encounter procedure Helen Chad BURCH Work Phone: [facility] Comment [...] 04-22-2022 Subsequent hospital visit by physician Xr [facility] Work Phone: Radiology Comment on above: [...] 02-04-2022 Refill Sylvia Lizama MD Work Phone: [facility] Comment on above: Refill Request medications Start: 01-29-2022 End: 01-29-2022 ambulatory Melba Escudero MD Work Phone: Hematology/Oncology Comment on above: 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); Encounter for screening mammogram for malignant neoplasm of breast Start: 01-29-2022 End: 01-29-2022 Patient encounter procedure Melba Escudero MD Work Phone: [facility] Start: 12-12-2021 End: 12-12-2021 Pt evaluation Mu Schaffer MD Work Phone: [facility] Work Phone: Start: 04-30-2021 End: 04-30-2021 Subsequent hospital visit by physician Mu Schaffer MD Work Phone: [facility] Comment on above: Arrived Start: 03-21-2021 End: 03-21-2021 Subsequent hospital visit by physician Xr [facility] Work Phone: Radiology Comment on above: Chest pain, unspecif ied type [R07.9] Start: 02-01-2021 ambulatory Sylvia Lizama MD Work Phone: [facility] Comment on above: Dizziness Start: 01-12-2021 End: 01-12-2021 Subsequent hospital visit by physician Xr [facility] Work Phone: Radiology Comment on above: Chills [R68.83] Start: 12-06-2020 End: 12-06-2020 Subsequent hospital visit by physician Xr [facility] Work Phone: Radiology Comment on above: Infected sebaceous c yst of skin [L72.3, L08.9] Start: 09-13-2020 End: 09-13-2020 Emergency department patient visit Pavel Watts Work Phone: [facility] Emergency Dept Comment on above: Upper respiratory tr act infection, unspecified type (Primary Dx) Start: 09-06-2020 End: 09-06-2020 Emergency department patient visit Kaden Kessler Work Phone: [facility] Emergency Dept Comment on above: Acute UTI (Primary D x); Chills Start: 08-30-2020 End: 08-30-2020 Subsequent hospital visit by physician Hellen [facility] Work Phone: Radiology Comment on above: [facility] [Z20.828] Start: 08-30-2019 End: 08-30-2019 Subsequent hospital visit by physician Mu Schaffer MD Work Phone: [facility] Comment on above: Arrived Start: 02-22-2018 End: 02-22-2018 Emergency department patient visit Jose Marcos Julien Facility:[facility] Start: 11-18-2017 End: 11-18-2017 Emergency department patient visit PAVEL Aguila [facility] Procedures Date Procedure Procedure Detail Performing Clinician Start: 04-01-2025 MRI of brain without contrast Dr. Sylvia Lizama MD Work Phone: Start: 04-01-2025 CT angiography of he ad [...] exam ches t 2 views Elida Lozada ROLL CUTTING OPERATOR.COMPENSATION ASSOCIATE Work Phone: Start: 11-01-2024 Urnls dip stick/tabl et rgnt auto w/o microscopy Elida Lozada ROLL CUTTING OPERATOR.COMPENSATION ASSOCIATE Work Phone: Start: 08-12-2024 Mri brain brain stem w/o w/contrast material Missy Hirsch PA-C Work Phone: Start: 07-27-2024 Urnls dip stick/tabl et rgnt auto w/o microscopy Helen Bonilla ROLL CUTTING OPERATOR.COMPENSATION ASSOCIATE Work Phone: Start: 05-11-2024 Urnls dip stick/tabl et rgnt auto w/o microscopy Darrian HOPKINS Work Phone: Start: 04-29-2024 Colonoscopy flx dx w/collj spec when pfrmd Zeny Crowder MD Work Phone: Start: 04-15-2024 Us lmtd joint/oth nonvasc xtr strux r-t w/img Sylvia Lizama MD Work Phone: Start: 03-15-2024 STREP A MOLECULAR (POC) Gini Ayala ROLL CUTTING OPERATOR.COMPENSATION ASSOCIATE Work Phone: Start: 2023 Urnls dip stick/tabl et rgnt auto w/o microscopy Elida Lozada ROLL CUTTING OPERATOR.COMPENSATION ASSOCIATE Work Phone: Start: 08-25-2023 Fundus photography w/interpretation [...] compl ete minimum 2 views Elissa Felipe ROLL CUTTING OPERATOR.COMPENSATION ASSOCIATE Work Phone: Start: 02-24-2023 CBC + DIFF César Topete ci DO Work Phone: Start: 02-21-2023 End: 02-21-2023 Fundus photography w/interpretation & report Franklyn Juares MD Work Phone: Start: 02-21-2023 IOL BIOMETRY W/ IOL CALC OU (BOTH EYES) Franklyn Juares MD Work Phone: Start: 02-21-2023 Computerized ophthal vesta imaging retina Franklyn Juares MD Work Phone: Start: 12-30-2022 Iaad ia hepatitis b surface antigen César Suggs DO Work Phone: Start: 12-30-2022 Blood count [...] count complete auto&auto difrntl wbc Brendon Coppola ROLL CUTTING OPERATOR.COMPENSATION ASSOCIATE Work Phone: Start: 09-24-2022 Ct abdomen & pelvis w/contrast material Melba Escudero MD Work Phone: Start: 09-24-2022 Ct thorax w/contrast material Melba Escudero MD Work Phone: Start: 09-24-2022 Blood count complete auto&auto difrntl wbc César Suggs DO Work Phone: Start: 08-21-2022 History of [...] et rgnt auto w/o microscopy Elida Lozada ROLL CUTTING OPERATOR.COMPENSATION ASSOCIATE Work Phone: Start: 05-10-2022 US LYMPH NODE [...] exam ches t 2 views Gini Ayala ROLL CUTTING OPERATOR.COMPENSATION ASSOCIATE Work Phone: Start: 12-06-2020 Radex spine lumbosac ral 2/3 views Zeny Augustin ROLL CUTTING OPERATOR.COMPENSATION ASSOCIATE, DNP Work Phone: Start: 09-13-2020 Urnls dip [...] exam ches t 2 views Gini Ayala ROLL CUTTING OPERATOR.COMPENSATION ASSOCIATE Work Phone: Anaerobic microbial culture Dr. Sylvia Lizama Work Phone: History of cholecystectomy S/P laparoscopic cholecystectomy Dr. Sylvia Lizama Work Phone: Comment on above: 08/02/22- laparoscop ic subtotal Investigation of transfusion reaction Dr. Sylvia Lizama Work Phone: Microbial culture, routine Dr. Sylvia Lizama Work Phone: NEGATED: Highlighted rowStart: 12-12-2021 End: 12-12-2021 Documentation of current medications Roselia Ciro [employer] HEAD Plan of Treatment Date Care Activity Detail Author Start: 03-14-2028 Diabetes Screening Diabetes Screening [facility] Start: 02-24-2028 Urine microalbumin profile [facility] Start: 11-12-2027 Diabetes Screening Diabetes Screening [facility] Start: 09-17-2027 Diabetes Screening Diabetes Screening [facility] Start: 08-27-2027 Diabetes Screening Diabetes Screening [facility] Start: 04-02-2027 Diabetes Screening Diabetes Screening [facility] Start: 03-15-2027 Diabetes Screening Diabetes Screening [facility] Start: 03-04-2027 Diabetes Screening Diabetes Screening [facility] Start: 01-06-2027 Diabetes Screening Diabetes Screening [facility] Start: 06-13-2026 Diabetes Screening Diabetes Screening [facility] Start: 03-01-2026 Medicare Annual Wellness Visit Medicare Annual Wellness Visit [facility] Start: 03-01-2026 RSV Vaccine (1 - 1-dose 75+ series) RSV Vaccine (1 - 1-dose 75+ series) [facility] Comment on above: Postponed from 2018 (Declined at t his time) Start: 03-01-2026 Shingrix Vaccine (1 of 2) Shingrix Vaccine (1 of 2) [facility] Comment on above: Postponed from 1962 (Declined at t his time) Start: 02-11-2026 DIABETES SCREEN DIABETES SCREEN [facility] Start: 02-11-2026 Diabetes Screening Diabetes Screening [facility] Start: 12-30-2025 DIABETES SCREEN DIABETES SCREEN [facility] Start: 11-25-2025 DIABETES SCREEN DIABETES SCREEN [facility] Start: 10-28-2025 DIABETES SCREEN DIABETES SCREEN [facility] Start: 09-24-2025 DIABETES SCREEN DIABETES SCREEN [facility] Start: 09-17-2025 Creatinine measurement Serum Creatinine [facility] Start: 09-03-2025 BP Controlled (<130/80) BP Controlled (<130/80) [facility] Start: 09-01-2025 End: 09-01-2025 Patient encounter procedure 09/01/2025 10:20 AM EST Office Visit [facility] [place] [address] [place] [address] Judith Pickard, ROLL CUTTING OPERATOR.COMPENSATION ASSOCIATE [address] [facility] [address] 6 month exam [facility] [place] Comment on above: 6 month exam Start: 08-30-2025 DIABETES SCREEN DIABETES SCREEN [facility] Start: 08-27-2025 Creatinine measurement Serum Creatinine [facility] Start: 07-23-2025 DIABETES SCREEN DIABETES SCREEN [facility] Start: 07-12-2025 End: 07-12-2025 ambulatory [place] [facility] Comment on above: CBC/CMP/LDH 3-4MO OV/EARLY LABS Start: 07-06-2025 Annual PCP Team Chronic Disease Visit Annual PCP Team Chronic Disease Visit [facility] Start: 07-06-2025 BP Controlled (<130/80) BP Controlled (<130/80) [facility] Start: 07-02-2025 BP Controlled (<130/80) BP Controlled (<130/80) [facility] Start: 06-27-2025 DIABETES SCREEN DIABETES SCREEN [facility] Start: 06-19-2025 DIABETES SCREEN DIABETES SCREEN [facility] Start: 06-17-2025 BP Controlled (<130/80) BP Controlled (<130/80) [facility] Start: 05-23-2025 Influenza vaccination [facility] Start: 05-18-2025 BP Controlled (<130/80) BP Controlled (<130/80) [facility] Start: 05-17-2025 End: 05-17-2025 Patient encounter procedure 05/17/2025 3:30 PM EDT Office Visit Neurology [address] [place] [address] Missy Hirsch PA-C [address] [place] [address] Dx: Disorder of labyrinth, 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]; Migraine with aura, not intractable, without status migrainosus [G43.109] Neurology Comment on above: Dx: Disorder of labyrinth, unspecified l aterality [H81.90]; Migraine with aura, not intractable, without status migrainosus [G43.109] Start: 05-11-2025 BP Controlled (<130/80) BP Controlled (<130/80) [facility] Start: 05-10-2025 End: 05-10-2025 OT/PT/Speech Visit 05/10/2025 9:45 AM EDT OT/PT/Speech Visit [facility] [address] [place] [address] Elida Pennington, PT Dx: Disorder of labyrinth, 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]; Migraine with aura, not intractable, without status migrainosus [G43.109] [facility] Comment on above: Dx: Disorder of labyrinth, unspecified l aterality [H81.90]; Migraine with aura, not intractable, without status migrainosus [G43.109] Start: 05-03-2025 BP Controlled (<130/80) BP Controlled (<130/80) [facility] Start: 05-01-2025 DIABETES SCREEN DIABETES SCREEN [facility] Start: 04-15-2025 End: 04-15-2025 Patient encounter procedure 04/15/2025 11:20 AM EDT Office Visit [facility] [place] [address] [place] [address] Judith Pickard APRN.COMPENSATION ASSOCIATE [address] [place] [address] [facility] 04/05/25 vertigo diplopia [facility] Comment on above: [facility] 04/05/25 vertigo diplopia Start: 04-05-2025 Patient discharge [facility] Start: 04-02-2025 Referral to service [facility] Start: 04-02-2025 [facility] Start: 04-02-2025 Annual PCP Team Chronic Disease Visit Annual PCP Team Chronic Disease Visit [facility] Start: 04-02-2025 Creatinine measurement Serum Creatinine [facility] Start: 04-01-2025 Following clinical pathway protocol [facility] Start: 04-01-2025 Aspiration precautions [facility] Start: 04-01-2025 Assessment of risk of venous thromboembolism [facility] Start: 04-01-2025 Cardiac monitoring [facility] Start: 04-01-2025 Catheterization of vein [facility] Start: 04-01-2025 Consultation [facility] Start: 04-01-2025 Elevation of head of bed [facility] Start: 04-01-2025 Exercises [facility] Start: 04-01-2025 Insertion of catheter into peripheral vein [facility] Start: 04-01-2025 Measuring intake and output [facility] Start: 04-01-2025 Notification of physician [facility] Start: 04-01-2025 Patient referral to dietitian [facility] Start: 04-01-2025 Providing care according to standard [facility] Start: 04-01-2025 Provision of activity privileges [facility] Start: 04-01-2025 Referral to occupational therapist [facility] Start: 04-01-2025 Referral to service [facility] Start: 04-01-2025 Speech therapy assessment [facility] Start: 04-01-2025 Tobacco use cessation education [facility] Start: 04-01-2025 End: 04-01-2025 [facility] Start: 04-01-2025 Vital signs measurements [facility] [facility] Start: 04-01-2025 MRI of brain without contrast Brain without Contrast [facility] Start: 04-01-2025 Verification routine [facility] Start: 04-01-2025 Admission procedure [facility] Start: 04-01-2025 Hospital admission, emergency, from emergency room, medical nature [facility] Start: 04-01-2025 Oxygen therapy [facility] Start: 04-01-2025 End: 04-02-2025 [facility] Start: 04-01-2025 Patient referral to dietitian [facility] Start: 03-28-2025 End: 03-28-2025 Patient encounter procedure 03/28/2025 10:40 AM EDT Office Visit [facility] [place] [address] [place] [address] Gini Ayala APRN.[facility] [address] [place] [address] 2 week BP check [facility] [place] Comment on above: 2 week BP check Start: 03-22-2025 End: 03-22-2025 ambulatory 03/22/2025 10:00 AM EDT Visit (SP) Office Hematology/Oncology [address] [place] [address] Asad Deras [address] [place] [address] OV/ LAB & CT 03/14 * r/s from 03/21 Hematology/Oncology Comment on above: OV/ LAB & CT 03/14 * r/s from 03/21 Start: 03-21-2025 End: 03-21-2025 ambulatory 03/21/2025 10:00 AM EDT Visit (SP) Office Hematology/Oncology [address] [place] [address] Asad Deras [address] [place] [address] OV/ LAB & CT 03/14 * Hematology/Oncology Comment on above: OV/ LAB & CT 03/14 * Start: 03-15-2025 Annual PCP Team Chronic Disease Visit Annual PCP Team Chronic Disease Visit [facility] Start: 03-15-2025 BP Controlled (<130/80) BP Controlled (<130/80) [facility] Start: 03-15-2025 End: 06-14-2025 CBC W Auto Differential panel - Blood COMPLETE BLOOD COUNT AND DIFFERENTIAL Lab Routine B-cell lymphoma, unspecified B-cell lymphoma type, unspecified body region (HCC) Expected: 03/15/2025, Expires: 06/14/2025 [facility] Work Phone: Comment on above: Expected: 03/15/2025, Expires: Start: 03-15-2025 End: 06-14-2025 Cobalamin (Vitamin B12) [Mass/volume] in Serum or Plasma VITAMIN B12 Lab Routine Neuropathy Expected: 03/15/2025, Expires: 06/14/2025 [facility] Comment on above: Expected: 03/15/2025, Expires: Start: 03-15-2025 End: 06-14-2025 Comprehensive metabolic 2000 panel - Serum or Plasma COMPREHENSIVE METABOLIC PANEL Lab Routine Chronic kidney disease, unspecified CKD stage Expected: 03/15/2025, Expires: 06/14/2025 [facility] Comment on above: Expected: 03/15/2025, Expires: Start: 03-15-2025 Creatinine measurement Serum Creatinine [facility] Start: 03-15-2025 End: 06-14-2025 Hemoglobin A1c in Blood HEMOGLOBIN A1C Lab Routine Neuropathy Initial Medicare annual wellness visit Screening for cholesterol level Screening for diabetes mellitus Cognitive changes Mixed hyperlipidemia B-cell lymphoma, unspecified B-cell lymphoma type, unspecified body region (HCC) Debility Chronic kidney disease, unspecified CKD stage Hypothyroidism, unspecified type Spinal stenosis, lumbar region, with neurogenic claudication Expected: 03/15/2025, Expires: 06/14/2025 [facility] Comment on above: Expected: 03/15/2025, Expires: Start: 03-15-2025 End: 06-14-2025 Iron and Iron binding capacity panel - Serum or Plasma IRON AND TIBC Lab Routine B-cell lymphoma, unspecified B-cell lymphoma type, unspecified body region (HCC) Expected: 03/15/2025, Expires: 06/14/2025 [facility] Comment on above: Expected: 03/15/2025, Expires: Start: 03-15-2025 End: 06-14-2025 Lactate dehydrogenase [Enzymatic activity/volume] in Serum or Plasma LACTATE DEHYDROGENASE Lab Routine B-cell lymphoma, unspecified B-cell lymphoma type, unspecified body region (HCC) Expected: 03/15/2025, Expires: 06/14/2025 [facility] Comment on above: Expected: 03/15/2025, Expires: Start: 03-15-2025 End: 06-14-2025 LIPID PANEL, NONFASTING LIPID PANEL, NONFASTING Lab Routine Screening for cholesterol level Expected: 03/15/2025, Expires: 06/14/2025 [facility] Comment on above: Expected: 03/15/2025, Expires: Start: 03-15-2025 End: 06-14-2025 Magnesium [Mass/volume] in Serum or Plasma MAGNESIUM Lab Routine Chronic kidney disease, unspecified CKD stage Expected: 03/15/2025, Expires: 06/14/2025 [facility] Comment on above: Expected: 03/15/2025, Expires: Start: [...] with neurogenic claudication Expected: 03/15/2025, Expires: 06/14/2025 [facility] Comment on above: Expected: 03/15/2025, Expires: Start: 03-14-2025 End: 06-13-2025 Basic metabolic 2000 panel - Serum or Plasma BASIC METABOLIC PANEL Lab Routine Essential hypertension Expected: 03/14/2025, Expires: 06/13/2025 [facility] Work Phone: Comment on above: Expected: 03/14/2025, Expires: Start: 03-14-2025 End: 03-14-2025 Patient encounter procedure 03/14/2025 10:20 AM EDT Appointment Cat Scan [address] [address] 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 [address] [place] [address] CBC/CMP/LDH * [facility] Comment on above: CBC/CMP/LDH * Start: 03-04-2025 Creatinine measurement Serum Creatinine [facility] Start: 03-01-2025 End: 03-01-2025 Patient encounter procedure 03/01/2025 11:20 AM EDT Office Visit [facility] [place] [address] [place], [place] [id number] Judith Pickard APRN.COMPENSATION ASSOCIATE [address] [place], [place] [address] Medicare Wellness [facility] Comment on above: Medicare Wellness Start: 02-09-2025 End: 02-09-2025 Patient encounter procedure 02/09/2025 10:30 AM EDT Office Visit [facility] Ophthalmology [address] [place] [address] Franklyn Juares MD [address] [place] [address] cataracts Ophthalmology Comment on above: cataracts Start: 01-29-2025 DIABETES SCREEN DIABETES SCREEN [facility] Start: 01-20-2025 End: 01-20-2025 Patient encounter procedure 01/20/2025 10:00 AM EDT Office Visit Urology [address] [place] [address] Alysha Khanna MD [address] [facility] [place] [address] Urinary incontinence, unspecified type [R32] Urology Comment on above: Urinary incontinence, unspecified type [ R32] Start: 01-06-2025 Annual PCP Team Chronic Disease Visit Annual PCP Team Chronic Disease Visit [facility] Start: 01-06-2025 BP Controlled (<130/80) BP Controlled (<130/80) [facility] Start: 01-06-2025 Creatinine measurement Serum Creatinine [facility] Start: 01-06-2025 RSV Vaccine (1 - 1-dose 60+ series) RSV Vaccine (1 - 1-dose 60+ series) [facility] Comment on above: Postponed from 2003 (Declined at t his time) Start: 01-06-2025 RSV Vaccine (1 - 1-dose 75+ series) RSV Vaccine (1 - 1-dose 75+ series) [facility] Comment on above: Postponed from 2018 (Declined at t his time) Start: 12-28-2024 End: 12-28-2024 Patient encounter procedure 12/28/2024 4:00 PM EDT Office Visit [facility] [place] [address] [place] [address] Sylvia Lizama MD [address] [place] [address] D/C from [facility] 12/17/24 [facility] [place] Comment on above: D/C from [facility] 12/17/24 Start: 12-23-2024 Creatinine measurement Serum Creatinine [facility] Start: 12-14-2024 End: 12-14-2024 Patient encounter procedure [facility] [place] Comment on above: 6 month f/u Start: 12-10-2024 End: 12-10-2024 ambulatory 12/10/2024 9:00 AM EDT Visit (SP) Office Hematology/Oncology [address] [place] [address] César Suggs DO [address] [address] OV/ LAB & CT C/A/P 11/12 * Hematology/Oncology Comment on above: OV/ LAB & CT C/A/P 11/12 * Start: 12-01-2024 Patient discharge [facility] Start: 11-29-2024 Following clinical pathway protocol [facility] Start: 11-27-2024 Admission procedure [facility] Start: 11-26-2024 [facility] Start: 11-26-2024 Following clinical pathway protocol [facility] Start: 11-26-2024 Ambulation without limitation [facility] Start: 11-26-2024 Assessment of risk of venous thromboembolism [facility] Start: 11-26-2024 Insertion of catheter into peripheral vein [facility] Start: 11-26-2024 Providing care according to standard [facility] Start: 11-26-2024 Referral to occupational therapist [facility] Start: 11-26-2024 Referral to service [facility] Start: 11-26-2024 [facility] Start: 11-26-2024 Hospital admission, emergency, from emergency room, medical nature [facility] Start: 11-26-2024 Verification routine [facility] Start: 11-26-2024 Admission procedure [facility] Start: 11-26-2024 [facility] Start: 11-26-2024 End: 11-26-2024 [facility] Start: 11-26-2024 Bacteria identified in Blood by Culture Blood Culture [facility] Start: 11-19-2024 End: 11-19-2024 ambulatory Hematology/Oncology Comment on above: OV/ CT C/A/P 11/12 * Start: 11-12-2024 End: 02-11-2025 Thyrotropin [Units/volume] in Serum or Plasma THYROID STIMULATING HORMONE Lab Routine Hypothyroidism due to acquired atrophy of thyroid Expected: 11/12/2024, Expires: 02/11/2025 [facility] Work Phone: Comment on above: Expected: 11/12/2024, Expires: Start: 11-12-2024 End: 11-12-2024 Patient encounter procedure Cat Scan Comment on above: Grade 2 follicular lymphoma of lymph nod es of multiple regions (HCC) [C82.18] [facility] ER 11/06/24 for B ronchitis and a Sinus Infection x3 Weeks. Pull charts for appointment. 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] Neurology Comment on above: Disorder of labyrinth, unspecified later ality [H81.90] Start: 10-18-2024 DIABETES SCREEN DIABETES SCREEN [facility] Start: 10-08-2024 End: 10-08-2024 ambulatory [facility] Comment on above: CBC* QWK RITUXAN/C4-4/MDC R* (SO)CBC* Start: 10-01-2024 End: 10-01-2024 [facility] Comment on above: CBC* QWK RITUXAN/C4-4/MDC R* QWK RITUXAN/C3-4/MDC R* (SO)CBC* Start: 09-24-2024 End: 09-24-2024 ambulatory [facility] Comment on above: CBC* QWK RITUXAN/C3-4/MDC R* - this date/time per nurse QWK RITUXAN/C2-4/MDC R* - this date/time per nurse Start: 09-23-2024 Annual PCP Team Chronic Disease Visit Annual PCP Team Chronic Disease Visit [facility] Start: 09-22-2024 Advance Directive Discussion Advance Directive Discussion [facility] Start: 09-17-2024 End: 09-17-2024 [facility] Comment on above: CBC* QWK RITUXAN/C2-4/MDC R* CBC/CMP(S)/LDH(S)/UR IC ACID(S)* START QWK RITUXAN/C1 -4/MDCR* Start: 09-10-2024 End: 09-10-2024 [facility] Comment on above: CBC/CMP(s)/LDH(S)/Uric acid(S)* START QWK RITUXAN/C1 -4/MDCR* Start: 09-03-2024 End: 12-03-2024 Chronic hepatitis differentiation between hepatitis B and C virus panel - Serum or Plasma [facility] Comment on above: Expected: 09/03/2024, Expires: Start: 09-03-2024 End: 09-03-2024 ambulatory 09/03/2024 10:10 AM EST Visit (SP) Office Hematology/Oncology [address] [place], [place] [address] César Suggs DO [address] [facility] [place], [place] [id number] 4 MO OV/LAB&CT 08/27* Hematology/Oncology Comment on above: 4 MO OV/LAB&CT 08/27* Start: 08-27-2024 End: 08-27-2024 Patient encounter procedure Cat Scan Comment on above: Grade 2 follicular lymphoma of lymph nod es of multiple regions (HCC) [C82.18] Start: 08-27-2024 End: 08-27-2024 ambulatory 08/27/2024 10:00 AM EST Results Only [facility] [address] [place] [address] CBC/CMP/LDH/URIC ACID [facility] Comment on above: CBC/CMP/LDH/URIC ACID Start: 08-12-2024 End: 08-12-2024 Patient encounter procedure 08/12/2024 12:30 PM EST Appointment Radiology [address] [place] [address] Worsening headaches [R51.9] Radiology Comment on above: Worsening headaches [R51.9] Start: 07-27-2024 End: 07-27-2024 Patient encounter procedure 07/27/2024 12:45 PM EST Office Visit Neurology [address] [place] [address] Missy Hirsch PA-C [address] [place] [address] Disorder of labyrinth, 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 Ophthalmology Comment on above: Cataracts/Ocular Hypertension. Start: 07-16-2024 End: 07-16-2024 Patient encounter procedure 07/16/2024 9:20 AM EDT Office Visit Family [facility] [place] [address] [place], [place] [address] Judith Pickard APRN.COMPENSATION ASSOCIATE [address] [facility] [place] [id number] 2 week f/u Family [facility] Comment on above: 2 week f/u Start: 07-14-2024 End: 07-14-2024 Patient encounter procedure 07/14/2024 8:30 AM EDT Office Visit [facility] Ophthalmology [address] [place] [address] Franklyn Juares MD [address] [place] [address] Cataracts/Ocular Hypertension. Ophthalmology Comment on above: Cataracts/Ocular Hypertension. 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]; Encounter for screening mammogram for malignant neoplasm of breast [Z12.31] Mammogram Comment on above: Grade 2 follicular lymphoma of lymph nod es of multiple regions (HCC) [C82.18]; Encounter for screening mammogram for malignant neoplasm of breast [Z12.31] Start: 07-08-2024 Annual PCP Team Chronic Disease Visit Annual PCP Team Chronic Disease Visit [facility] Start: 07-08-2024 Shingrix Vaccine (1 of 2) Shingrix Vaccine (1 of 2) [facility] Comment on above: Postponed from 1962 (Declined at t his time) Start: 07-02-2024 End: 07-02-2024 Patient encounter procedure 07/02/2024 11:40 AM EDT Office Visit [facility] [place] [address] [facility], [place] [address] Judith Pickard APRN.COMPENSATION ASSOCIATE [address] [facility] [place] [id number] hearing noses/different than the ringing in the ears/top of head is [id number] phone encounter) Family Medicine [place] Comment on above: hearing noses/different than the ringing in the ears/top of head is [id number] phone encounter) Start: 06-17-2024 End: 06-17-2024 Patient encounter procedure 06/17/2024 11:20 AM EDT Office Visit [facility] [place] [address] [place] [address] Judith Pickard ROLL CUTTING OPERATOR.COMPENSATION ASSOCIATE [address] [place] [address] Blood pressure follow up [facility] [place] Comment on above: Blood pressure follow up Start: 06-13-2024 BP Controlled (<130/80) BP Controlled (<130/80) [facility] in Start: 06-13-2024 Creatinine measurement Serum Creatinine [facility] Start: 06-13-2024 Serum Creatinine Serum Creatinine [facility] Start: 06-06-2024 Serum Creatinine Serum Creatinine [facility] Start: 05-23-2024 Influenza vaccination [facility] Start: 05-04-2024 End: 05-04-2024 ambulatory 05/04/2024 1:15 PM EDT OT/PT/Speech Visit [facility] [address] [place] [address] [facility] [place] [address] Yariel Bustillo, PT [address] [place] [address] BPPV (benign paroxysmal positional vertigo), unspecified laterality [H81.10] [facility] Comment on above: BPPV (benign paroxysmal positional verti go), unspecified laterality [H81.10] Start: 05-03-2024 End: 05-03-2024 Patient encounter procedure 05/03/2024 10:40 AM EDT Office Visit [facility] [place] [address] [place] [address] Judith Pickard, ROLL CUTTING OPERATOR.COMPENSATION ASSOCIATE [address] [place], [place] [id number] 4 week follow up [facility] [place] Comment on above: 4 week follow up Start: 04-29-2024 End: 04-29-2024 Patient encounter procedure Ambulatory Surgery Start: 04-26-2024 End: 07-26-2024 Lactate dehydrogenase [Enzymatic activity/volume] in Serum or Plasma LACTATE DEHYDROGENASE Lab Routine 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) Expected: 04/26/2024, Expires: 07/26/2024 [facility] Comment on above: Expected: 04/26/2024, Expires: Start: 04-26-2024 End: 07-26-2024 Urate [Mass/volume] in Serum or Plasma URIC ACID Lab Routine 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) Expected: 04/26/2024, Expires: 07/26/2024 [facility] Comment on above: Expected: 04/26/2024, Expires: Start: 04-17-2024 ANNUAL PCP TEAM CHRONIC DISEASE VISIT ANNUAL PCP TEAM CHRONIC DISEASE VISIT [facility] Start: 04-15-2024 End: 04-15-2024 Patient encounter procedure [...] the abdomen Expected: 04/08/2024 (Approximate), Expires: 07/08/2024 [facility] Comment on above: Expected: 04/08/2024 (Approximate), Expi res: 07/08/2024 Start: 04-03-2024 ANNUAL PCP TEAM CHRONIC DISEASE VISIT ANNUAL PCP TEAM CHRONIC DISEASE VISIT [facility] Start: 04-03-2024 BP CONTROLLED (<130/80) BP CONTROLLED (<130/80) [facility] in Start: 04-02-2024 End: 04-02-2024 ambulatory 04/02/2024 3:15 PM EDT Results Only [place] [facility] [address] [facility] [place] [address] Essential hypertension; 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); Enlarged lymph nodes; Abnormal CT of the abdomen; Hypertensive urgency [facility] Comment on above: Essential hypertension; 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); Enlarged lymph nodes; Abnormal CT of the abdomen; Hypertensive urgency Start: 04-02-2024 End: 04-02-2024 Patient encounter procedure 04/02/2024 2:20 PM EDT Office Visit Family [facility] [address] [facility], [place] [address] Sylvia Lizama MD [address] [facility] [place] [id number] [facility] Follow Up [facility] Comment on above: [facility] Follow Up Start: 03-31-2024 End: 03-31-2024 ambulatory 03/31/2024 1:00 PM EDT Visit (SP) Office [facility] [address] [place] [address] Shiv Shea MD [address] [place], [place] [id number] Urinary incontinence without sensory awareness [N39.42] [facility] Comment on above: Urinary incontinence without sensory kareem reness [N39.42] Start: 03-29-2024 End: 03-29-2024 Patient encounter procedure 03/29/2024 2:15 PM EDT Office Visit General Surgery [address] [place], [place] [address] Zeny Crowder MD [address] [place], [place] [id number] Diarrhea, unspecified type [R19.7] General Surgery Comment on above: Diarrhea, unspecified type [R19.7] Start: 03-24-2024 ANNUAL PCP TEAM CHRONIC DISEASE VISIT ANNUAL PCP TEAM CHRONIC DISEASE VISIT [facility] Start: 03-24-2024 BP CONTROLLED (<130/80) BP CONTROLLED (<130/80) [facility] Start: 03-21-2024 Influenza vaccination Influenza Vaccine (#1) [place] [facility] Comment on above: Postponed from 05/23/2023 (Declined at t his time) Start: 03-18-2024 End: 03-18-2024 Patient encounter procedure 03/18/2024 11:00 AM EDT Office Visit Family [facility] [address] [place], [place] [phone] Judith Pickard APRN.[employer] [address] [place] [address] 6 week medication f/u [facility] Comment on above: 6 week medication f/u Start: 03-15-2024 End: 06-14-2024 C reactive protein [Mass/volume] in Serum or Plasma [facility] Comment on above: Expected: 03/15/2024, Expires: Start: 03-15-2024 End: 06-14-2024 Calprotectin [Mass/mass] in Stool CALPROTECTIN,FECAL Lab Routine Diarrhea, unspecified type Expected: 03/15/2024, Expires: 06/14/2024 [facility] Comment on above: Expected: 03/15/2024, Expires: Start: 03-15-2024 End: 06-14-2024 Clostridioides difficile toxin genes [Presence] in Stool by ANALI with probe detection C. DIFFICILE PCR Lab Routine Diarrhea, unspecified type Expected: 03/15/2024, Expires: 06/14/2024 [facility] Comment on above: Expected: 03/15/2024, Expires: Start: 03-15-2024 End: 06-14-2024 Comprehensive metabolic 2000 panel - Serum or Plasma [facility] Work Phone: Comment on above: Expected: 03/15/2024, Expires: Start: 03-15-2024 End: 03-15-2025 ENTERIC BACTERIAL PANEL BY PCR ENTERIC BACTERIAL PANEL BY PCR Lab Routine Diarrhea, unspecified type Expected: 03/15/2024, Expires: 03/15/2025 [facility] Comment on above: Expected: 03/15/2024, Expires: 5 Start: 03-15-2024 End: 06-14-2024 FECAL LACTOFERRIN/LEUKOCYTES FECAL LACTOFERRIN/LEUKOCYTES Lab Routine Diarrhea, unspecified type Expected: 03/15/2024, Expires: 06/14/2024 [facility] Comment on above: Expected: 03/15/2024, Expires: Start: 03-15-2024 End: 06-14-2024 Giardia lamblia+Cryptosporidium sp Ag [Presence] in Stool by Immunoassay CRYPTOSPORIDIUM AND GIARDIA ANTIGENS BY EIA Microbiology Routine Diarrhea, unspecified type Expected: 03/15/2024, Expires: 06/14/2024 [facility] Comment on above: Expected: 03/15/2024, Expires: 4 Start: 03-15-2024 End: 03-15-2025 Norovirus Ag [Presence] in Stool NOROVIRUS GROUP 1 AND 2 Lab Routine Diarrhea, unspecified type Expected: 03/15/2024, Expires: 03/15/2025 [facility] Comment on above: Expected: 03/15/2024, Expires: 5 Start: 03-15-2024 End: 06-14-2024 Rotavirus Ag [Presence] in Stool by Immunoassay ROTAVIRUS AG BY EIA Microbiology Routine Diarrhea, unspecified type Expected: 03/15/2024, Expires: 06/14/2024 [facility] Comment on above: Expected: 03/15/2024, Expires: 4 Start: 03-15-2024 End: 06-14-2024 Thyrotropin [Units/volume] in Serum or Plasma [facility] Comment on above: Expected: 03/15/2024, Expires: 4 Start: 03-15-2024 End: 06-14-2024 Thyroxine (T4) free [Mass/volume] in Serum or Plasma [facility] Comment on above: Expected: 03/15/2024, Expires: 4 Start: 03-04-2024 End: 06-03-2024 Bacteria identified in Urine by Culture [facility] Work Phone: Comment on above: Expected: 03/04/2024, Expires: Start: 03-04-2024 End: 06-03-2024 Cobalamin (Vitamin B12) [Mass/volume] in Serum or Plasma [facility] Comment on above: Expected: 03/04/2024, Expires: Start: 03-04-2024 End: 06-03-2024 Comprehensive metabolic 2000 panel - Serum or Plasma [facility] Comment on above: Expected: 03/04/2024, Expires: Start: 03-04-2024 End: 06-03-2024 Magnesium [Mass/volume] in Serum or Plasma [facility] Comment on above: Expected: 03/04/2024, Expires: Start: 03-04-2024 End: 03-04-2024 Patient encounter procedure 03/04/2024 11:20 AM EDT Office Visit Family [facility] [place] [address] [place] [address] Judith Pickard ROLL CUTTING OPERATOR.BR[employer]IL[employer] [address] [facility] [address] Diarrhea. See triage. [facility] [place] Comment on above: Diarrhea. See triage. Start: 03-02-2024 End: 03-02-2024 Patient encounter procedure 03/02/2024 9:30 AM EDT Office Visit [facility] [address] [place] [address] Franklyn Juares MD [address] [id number] Cataracts Ophthalmology Comment on above: Cataracts Start: 02-19-2024 End: 02-19-2024 Patient encounter procedure 02/19/2024 1:30 PM EDT Office Visit OB/Gynecology [address] [place] [address] Shaila Rincon APRN.COMPENSATION ASSOCIATE [address] [place] [address] incontinence OB/Gynecology Comment on above: incontinence Start: 02-12-2024 ANNUAL PCP TEAM CHRONIC DISEASE VISIT ANNUAL PCP TEAM CHRONIC DISEASE VISIT [facility] Start: 02-12-2024 SERUM CREATININE SERUM CREATININE [facility] Start: 02-05-2024 End: 02-05-2024 Patient encounter procedure 02/05/2024 11:00 AM EDT Office Visit Family Medicine [place] [address] [place] [address] Judith Pickard APRN.BRICK [employer]DER [address] [place] [address] 4 week follow up [facility] [place] Comment on above: 4 week follow up Start: 01-07-2024 End: 04-07-2024 CBC W Auto Differential panel - Blood COMPLETE BLOOD COUNT AND DIFFERENTIAL Lab Routine Essential hypertension Expected: 01/07/2024, Expires: 04/07/2024 [facility] Work Phone: Comment on above: Expected: 01/07/2024, Expires: 4 Start: 01-07-2024 End: 04-07-2024 T4/FTI/T4U [facility] Work Phone: Comment on above: Expected: 01/07/2024, Expires: 4 Start: 01-07-2024 End: 04-07-2024 Thyrotropin [Units/volume] in Serum or Plasma [facility] Work Phone: Comment on above: Expected: 01/07/2024, Expires: 4 Start: 01-02-2024 End: 04-02-2024 CBC W Auto Differential panel - Blood COMPLETE BLOOD COUNT AND DIFFERENTIAL Lab STAT 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) Expected: 01/02/2024, Expires: 04/02/2024 [facility] Work Phone: Comment on above: Expected: 01/02/2024, Expires: 4 Start: 01-02-2024 End: 04-02-2024 Comprehensive metabolic 2000 panel - Serum or Plasma COMPREHENSIVE METABOLIC PANEL Lab STAT 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) Expected: 01/02/2024, Expires: 04/02/2024 [facility] Work Phone: Comment on above: Expected: 01/02/2024, Expires: 4 Start: 01-02-2024 End: 04-02-2024 Lactate dehydrogenase [Enzymatic activity/volume] in Serum or Plasma LACTATE DEHYDROGENASE Lab STAT 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) Expected: 01/02/2024, Expires: 04/02/2024 [facility] Work Phone: Comment on above: Expected: 01/02/2024, Expires: Start: 12-31-2023 SERUM CREATININE SERUM CREATININE [facility] Start: 12-26-2023 ANNUAL PCP TEAM CHRONIC DISEASE VISIT ANNUAL PCP TEAM CHRONIC DISEASE VISIT [facility] Start: 12-18-2023 BP CONTROLLED (<130/80) BP CONTROLLED (<130/80) [facility] Start: 12-10-2023 ANNUAL PCP TEAM CHRONIC DISEASE VISIT ANNUAL PCP TEAM CHRONIC DISEASE VISIT [facility] Start: 11-28-2023 ANNUAL PCP TEAM CHRONIC DISEASE VISIT ANNUAL PCP TEAM CHRONIC DISEASE VISIT [facility] Start: 11-26-2023 BP CONTROLLED (<130/80) BP CONTROLLED (<130/80) [facility] Start: 11-26-2023 SERUM CREATININE SERUM CREATININE [facility] Start: 11-07-2023 ANNUAL PCP TEAM CHRONIC DISEASE VISIT ANNUAL PCP TEAM CHRONIC DISEASE VISIT [facility] Start: 10-28-2023 SERUM CREATININE SERUM CREATININE [facility] Start: 09-24-2023 SERUM CREATININE SERUM CREATININE [facility] Start: 09-22-2023 Advance Directive Discussion Advance Directive Discussion [facility] Start: 08-30-2023 SERUM CREATININE SERUM CREATININE [facility] Start: 07-23-2023 BP CONTROLLED (<130/80) BP CONTROLLED (<130/80) [facility] Start: 07-23-2023 SERUM CREATININE SERUM CREATININE [facility] Start: 07-08-2023 RSV Vaccine (1 - 1-dose 60+ series) RSV Vaccine (1 - 1-dose 60+ series) [facility] Comment on above: Postponed from 2003 (Declined at t his time) Start: 06-27-2023 SERUM CREATININE SERUM CREATININE [facility] Start: 06-19-2023 BP CONTROLLED (<130/80) BP CONTROLLED (<130/80) [facility] Start: 06-19-2023 End: 08-19-2023 CBC W Auto Differential panel - Blood CBC + DIFF Lab Routine 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) Expected: 06/19/2023, Expires: 08/19/2023 [facility] Work Phone: Comment on above: Expected: 06/19/2023, Expires: 3 Start: 06-19-2023 End: 08-19-2023 Comprehensive metabolic 2000 panel - Serum or Plasma COMP METABOLIC PANEL Lab Routine 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) Expected: 06/19/2023, Expires: 08/19/2023 [facility] Work Phone: Comment on above: Expected: 06/19/2023, Expires: 3 Start: 06-19-2023 End: 01-16-2024 Ct abdomen & pelvis w/o contrast material CT ABD/PEL WO IVCON Radiology Routine 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) Expected: 06/19/2023, Expires: 01/16/2024 [facility] Work Phone: Comment on above: Expected: 06/19/2023, Expires: 4 Start: 06-19-2023 End: 01-16-2024 Ct thorax w/o contrast material CT CHEST WO IVCON Radiology Routine 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) Expected: 06/19/2023, Expires: 01/16/2024 [facility] Work Phone: Comment on above: Expected: 06/19/2023, Expires: 4 Start: 06-19-2023 SERUM CREATININE SERUM CREATININE [facility] Start: 05-31-2023 BP CONTROLLED (<130/80) BP CONTROLLED (<130/80) [facility] Start: 05-23-2023 Influenza vaccination [facility] Start: 05-22-2023 BP CONTROLLED (<130/80) BP CONTROLLED (<130/80) [facility] Start: 05-07-2023 BP CONTROLLED (<130/80) BP CONTROLLED (<130/80) [facility] Start: 05-04-2023 End: 07-04-2023 Lipid 1996 panel - Serum or Plasma LIPID PANEL BASIC Lab Routine Mixed hyperlipidemia Expected: 05/04/2023, Expires: 07/04/2023 [facility] Work Phone: Comment on above: Expected: 05/04/2023, Expires: 3 Start: 05-01-2023 SERUM CREATININE SERUM CREATININE [facility] Start: 04-22-2023 ANNUAL PCP TEAM CHRONIC DISEASE VISIT ANNUAL PCP TEAM CHRONIC DISEASE VISIT [facility] Start: 01-29-2023 BP CONTROLLED (<130/80) BP CONTROLLED (<130/80) [facility] Start: 12-02-2022 End: 12-25-2023 Ct abdomen & pelvis w/o contrast material CT ABD/PEL WO IVCON Radiology Routine 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) Expected: 12/02/2022, Expires: 12/25/2023 [facility] Work Phone: Comment on above: Expected: 12/02/2022, Expires: 4 Start: 12-02-2022 End: 12-25-2023 Ct thorax w/o contrast material CT CHEST WO IVCON Radiology Routine 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) Expected: 12/02/2022, Expires: 12/25/2023 [facility] Work Phone: Comment on above: Expected: 12/02/2022, Expires: 4 Start: 11-27-2022 End: 01-27-2023 Bacteria identified in Urine by Culture [facility] Work Phone: Comment on above: Expected: 11/27/2022, Expires: 3 Start: 11-27-2022 End: 01-27-2023 Urinalysis complete panel - Urine [facility] Work Phone: Comment on above: Expected: 11/27/2022, Expires: 3 Start: 10-16-2022 ANNUAL PCP TEAM CHRONIC DISEASE VISIT ANNUAL PCP TEAM CHRONIC DISEASE VISIT [facility] Start: 09-22-2022 ADVANCE DIRECTIVE DISCUSSION ADVANCE DIRECTIVE DISCUSSION [facility] Start: 08-04-2022 Patient discharge [facility] Work Phone: Start: 08-02-2022 Incentive spirometry [facility] Work Phone: Start: 08-02-2022 [facility] Work Phone: Start: 08-02-2022 Following clinical pathway protocol [facility] Work Phone: Start: 08-02-2022 Maintenance of drainage tube [facility] Work Phone: Start: 08-01-2022 End: 10-01-2022 SARS-CoV-2 (COVID-19) RNA [Presence] in Respiratory specimen by ANALI with probe detection PRE-PROCEDURE & PRE-OPERATIVE COVID Microbiology Routine Encounter for prophylactic measures, unspecified Expected: 08/01/2022, Expires: 10/01/2022 [facility] Work Phone: Comment on above: Expected: 08/01/2022, Expires: 3 Start: 08-01-2022 Admission procedure [facility] Work Phone: Start: 07-30-2022 Application of intermittent pneumatic compression device [facility] Work Phone: Start: 07-30-2022 Assessment of risk of venous thromboembolism [facility] Work Phone: Start: 07-30-2022 Insertion of catheter into peripheral vein [facility] Work Phone: Start: 07-30-2022 Providing care according to standard [facility] Work Phone: Start: 07-30-2022 Provision of activity privileges [facility] Work Phone: Start: 07-30-2022 Referral to general surgeon [facility] Work Phone: Start: 07-30-2022 Referral to occupational therapist [facility] Work Phone: Start: 07-30-2022 Referral to service [facility] Work Phone: Start: 07-30-2022 [facility] Work Phone: Start: 07-30-2022 Referral to occupational therapist [facility] Work Phone: Start: 07-30-2022 Referral to service [facility] Work Phone: Start: 07-30-2022 Catheterization of vein 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) Expected: 05/01/2022, Expires: 02/28/2023 [facility] Work Phone: Comment on above: Expected: 05/01/2022, Expires: 3 Start: 05-01-2022 End: 02-28-2023 Ct thorax w/contrast material CT CHEST W IVCON Radiology Routine 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) Expected: 05/01/2022, Expires: 02/28/2023 [facility] Work Phone: Comment on above: Expected: 05/01/2022, Expires: 3 Start: 04-22-2022 End: 06-22-2022 Basic metabolic 2000 panel - Serum or Plasma [facility] Work Phone: Comment on above: Expected: 04/22/2022, Expires: 2 Start: 04-22-2022 End: 06-22-2022 CBC W Auto Differential panel - Blood [facility] Work Phone: Comment on above: Expected: 04/22/2022, Expires: 2 Start: 04-22-2022 End: 06-22-2022 Natriuretic peptide.B prohormone N-Terminal [Mass/volume] in Serum or Plasma [facility] Work Phone: Comment on above: Expected: 04/22/2022, Expires: 2 Start: 04-22-2022 End: 06-22-2022 Thyrotropin [Units/volume] in Serum or Plasma [facility] Work Phone: Comment on above: Expected: 04/22/2022, Expires: 2 Start: 12-12-2021 End: 12-12-2021 Patient encounter procedure Appointment [facility] Work Phone: Start: 12-12-2021 End: 12-12-2021 Chiropractic consultation Pain Management consultation Non Specified [facility] Work Phone: Start: 09-22-2021 ADVANCE DIRECTIVE DISCUSSION ADVANCE DIRECTIVE DISCUSSION [facility] Start: 09-13-2021 Creatinine measurement Creatinine monitoring [place], [place] Start: 09-13-2021 Potassium monitoring Potassium monitoring [place], [place] Start: 05-23-2021 Influenza vaccination Flu vaccine (#1) [facility] Work Phone: Start: 05-23-2020 Influenza vaccination Flu vaccine (#1) [place], [place] Start: 08-10-2019 Creatinine measurement Creatinine monitoring [place], [place] Start: 08-10-2019 Creatinine monitoring Creatinine monitoring [facility] Work Phone: Start: 08-10-2019 Potassium monitoring Potassium monitoring [facility] Work Phone: Start: 05-23-2019 Influenza vaccination Flu vaccine (#1) [facility] Work Phone: Start: 03-14-2019 Annual Wellness Visit (AWV) Annual Wellness Visit (AWV) [facility] Work Phone: Start: 2018 RSV Vaccine (1 - 1-dose 75+ series) RSV Vaccine (1 - 1-dose 75+ series) [facility] Start: 06-12-2010 PNEUMOCOCCAL: 65+ (2 - PCV) PNEUMOCOCCAL: 65+ (2 - PCV) [facility] Start: 2008 DEXA (modify frequency per FRAX score) DEXA (modify frequency per FRAX score) [facility] Work Phone: Start: 2003 RSV Vaccine (1 - 1-dose 60+ series) RSV Vaccine (1 - 1-dose 60+ series) [facility] Start: 1998 Screening for osteoporosis DEXA (modify frequency per FRAX score) [place], [place] Start: 1993 Colon cancer screen colonoscopy Colon cancer screen colonoscopy [facility] Work Phone: Start: 1993 Shingles Vaccine (1 of 2) Shingles Vaccine (1 of 2) [facility] Work Phone: Start: 1993 SHINGRIX VACCINE (1 of 2) SHINGRIX VACCINE (1 of 2) [facility] Start: 1983 Lipid screen Lipid screen [facility] Work Phone: Start: 1962 DTaP/Tdap/Td vaccine (1 - Tdap) DTaP/Tdap/Td vaccine (1 - Tdap) [place], [place] Start: 1962 SHINGRIX VACCINE (1 of 2) SHINGRIX VACCINE (1 of 2) [facility] Start: 1961 BP CONTROLLED (<130/80) BP CONTROLLED (<130/80) [facility] Start: 1955 COVID-19 Vaccine (1) COVID-19 Vaccine (1) [facility] Work Phone: Start: 1954 DTaP/Tdap/Td vaccine (1 - Tdap) DTaP/Tdap/Td vaccine (1 - Tdap) [facility] Work Phone: Start: 1943 Hepatitis C screening Hepatitis C screen [place], [place] Bacteria identified in Urine by Culture URINE CULTURE Microbiology Routine Urinary frequency 05/13/2022 11:57 AM EDT [facility] Work Phone: Bacteria identified in Urine by Culture URINE CULTURE Microbiology Routine Urinary frequency 2023 2:58 PM [facility] Work Phone: Bacteria identified in Urine by Culture URINE CULTURE Microbiology Routine Urinary frequency 05/11/2024 2:42 PM EDT [facility] Work Phone: Bacteria identified in Urine by Culture URINE CULTURE Microbiology Routine Burning with urination 07/27/2024 2:42 PM [facility] Work Phone: Bacteria identified in Urine by Culture BACTERIAL CULTURE, URINE Microbiology Routine Burning with urination Ordered: 11/01/2024 [facility] Work Phone: Comment on above: Ordered: 11/01/2024 End: 09-13-2020 Basic metabolic 2000 panel Basic Metabolic Panel Lab STAT One Time for 1 Occurrences starting 09/13/2020 until 09/13/2020 [facility] Comment on above: One Time for 1 Occurrences starting 08/23 until 09/13/2020 Basic metabolic 2000 panel Basic Metabolic Panel Lab STAT [facility] Different ial panel - Blood CBC + DIFF Lab STAT 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) 02/24/2023 1:41 PM [facility] Work Phone: COVID & INFLUENZA A/ B & RSV NAAT, ROUTINE COVID & INFLUENZA A/B & RSV NAAT, ROUTINE Microbiology Routine URI, acute 10/27/2023 10:17 AM [facility] Work Phone: COVID & INFLUENZA A/ B & RSV PCR, ROUTINE COVID & INFLUENZA A/B & RSV PCR, ROUTINE Microbiology Routine Viral URI Ordered: 11/12/2024 [facility] Comment on above: Ordered: 11/12/2024 Creatine kinase [Enzymatic activity/volume] in Serum or Plasma [facility] End: 09-29-2023 Ct abdomen & pelvis w/contrast material CT ABD/PEL W IVCON Radiology Routine 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) 1 Occurrences starting 08/30/2022 until 09/29/2023 [facility] Work Phone: Comment on above: 1 Occurrences starting 08/30/2022 until 09/29/2023 CT Abdomen and Pelvi s W contrast IV CT ABD/PEL W IVCON Radiology Routine 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) Encounter for screening mammogram for malignant neoplasm of breast 12/24/2023 12:01 PM EDT [facility] Work Phone: End: 02-06-2025 CT Abdomen and Pelvis W contrast IV CT ABD/PEL W IVCON Radiology Routine 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) Enlarged lymph nodes Abnormal CT of the abdomen 1 Occurrences starting 01/08/2024 until 02/06/2025 [facility] Work Phone: Comment on above: 1 Occurrences starting 01/08/2024 until 02/06/2025 CT Abdomen and Pelvi s W contrast IV CT ABD/PEL W IVCON Radiology Routine 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) Enlarged lymph nodes Abnormal CT of the abdomen 04/15/2024 11:26 AM EDT [facility] Work Phone: End: 05-26-2025 CT Abdomen and Pelvis W contrast IV CT ABD/PEL W IVCON Radiology Routine 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) 1 Occurrences starting 04/26/2024 until 05/26/2025 [facility] Work Phone: Comment on above: 1 Occurrences starting 04/26/2024 until 05/26/2025 CT Abdomen and Pelvi s W contrast IV CT ABD/PEL W IVCON Radiology Routine 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) 08/27/2024 11:44 AM [facility] Work Phone: End: 10-04-2025 CT Abdomen and Pelvis W contrast IV CT ABD/PEL W IVCON Radiology Routine 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) 1 Occurrences starting 09/03/2024 until 10/04/2025 [facility] Comment on above: 1 Occurrences starting 09/03/2024 until 10/04/2025 CT Abdomen and Pelvi s W contrast IV CT ABD/PEL W IVCON Radiology Routine 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) 11/12/2024 2:59 PM [facility] End: 01-09-2026 CT Abdomen and Pelvis W contrast IV CT ABD/PEL W IVCON Radiology Routine 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) 1 Occurrences starting 12/10/2024 until 01/09/2026 [facility] Work Phone: Comment on above: 1 Occurrences starting 12/10/2024 until 01/09/2026 CT Abdomen and Pelvi s W contrast IV CT ABD/PEL W IVCON Radiology Routine 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) 03/14/2025 11:01 AM T [facility] Work Phone: CT Chest W contrast IV CT CHEST W IVCON Radiology Routine 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) Encounter for screening mammogram for malignant neoplasm of breast 12/24/2023 12:01 PM T [facility] Work Phone: End: 05-26-2025 CT Chest W contrast IV CT CHEST W IVCON Radiology Routine 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) 1 Occurrences starting 04/26/2024 until 05/26/2025 [facility] Comment on above: 1 Occurrences starting 04/26/2024 until 05/26/2025 CT Chest W contrast IV CT CHEST W IVCON Radiology Routine 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) 08/27/2024 11:44 AM [facility] End: 10-03-2025 CT Chest W contrast IV CT CHEST W IVCON Radiology Routine 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) 1 Occurrences starting 09/03/2024 until 10/03/2025 [facility] Work Phone: Comment on above: 1 Occurrences starting 09/03/2024 until 10/03/2025 CT Chest W contrast IV CT CHEST W IVCON Radiology Routine 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) 11/12/2024 2:59 PM [facility] Work Phone: End: 01-09-2026 CT Chest W contrast IV CT CHEST W IVCON Radiology Routine 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) 1 Occurrences starting 12/10/2024 until 01/09/2026 [facility] Comment on above: 1 Occurrences starting 12/10/2024 until 01/09/2026 CT Chest W contrast IV CT CHEST W IVCON Radiology Routine 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) 03/14/2025 11:01 AM EDT [facility] End: 09-29-2023 CT CHEST W IVCON CT CHEST W IVCON Radiology Routine 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) 1 Occurrences starting 08/30/2022 until 09/29/2023 [facility] Work Phone: Comment on above: 1 Occurrences starting 08/30/2022 until 09/29/2023 End: 09-06-2020 Culture, Urine Culture, Urine Microbiology STAT One Time for 1 Occurrences starting 09/06/2020 until 09/06/2020 [place] Comment on above: One Time for 1 Occurrences starting 08/22 until 09/06/2020 Culture, Urine [place] End: 09-13-2020 Culture, Urine Culture, Urine Microbiology STAT One Time for 1 Occurrences starting 09/13/2020 until 09/13/2020 [place] Comment on above: One Time for 1 Occurrences starting 08/23 until 09/13/2020 DBT Breast - bilater al screening ROXANNE SCREENING W ANTHONY Radiology Routine 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) Encounter for screening mammogram for malignant neoplasm of breast 07/09/2024 11:15 AM EDT [facility] Work Phone: End: 07-08-2024 Echocardiography ECHO Cardiology Routine Valvular heart disease 1 Occurrences starting 07/08/2023 until 07/08/2024 [facility] Work Phone: Comment on above: 1 Occurrences starting 07/08/2023 until 07/08/2024 EKG 12 Lead - Chest Pain EKG 12 Lead - Chest Pain ECG STAT 09/13/2020 12:55 PM EST [place], [place] End: 03-29-2025 Flexible sigmoidoscopy study COLONOSCOPY DIAGNOSTIC Endoscopy Routine Diarrhea, unspecified type 1 Occurrences starting 03/29/2024 until 03/29/2025 [facility] Work Phone: Comment on above: 1 Occurrences starting 03/29/2024 until 03/29/2025 End: 11-27-2023 HOME SLEEP APNEA TEST (HSAT) HOME SLEEP APNEA TEST (HSAT) Procedures Routine CHRISTIANA (obstructive sleep apnea) 1 Occurrences starting 11/27/2022 until 11/27/2023 [facility] Work Phone: Comment on above: 1 Occurrences starting 11/27/2022 until 11/27/2023 End: 02-28-2023 ROXANNE SCREENING W ANTHONY ROXANNE SCREENING W ANTHONY Radiology Routine Encounter for screening mammogram for malignant neoplasm of breast 1 Occurrences starting 01/29/2022 until 02/28/2023 [facility] Work Phone: Comment on above: 1 Occurrences starting 01/29/2022 until 02/28/2023 End: 07-12-2024 ROXANNE SCREENING W ANTHONY ROXANNE SCREENING W ANTHONY Radiology Routine Encounter for screening mammogram for malignant neoplasm of breast 1 Occurrences starting 06/13/2023 until 07/12/2024 [facility] Work Phone: Comment on above: 1 Occurrences starting 06/13/2023 until 07/12/2024 End: 08-26-2025 MR Brain WO and W contrast IV MRI BRAIN WO/W IVCON Radiology Routine Worsening headaches 1 Occurrences starting 07/27/2024 until 08/26/2025 [facility] Work Phone: Comment on above: 1 Occurrences starting 07/27/2024 until 08/26/2025 End: 04-30-2021 MRI LUMBAR SPINE W WO CONTRAST MRI LUMBAR SPINE W WO CONTRAST Imaging Routine Once for 1 Occurrences starting 04/30/2021 until 04/30/2021 [employer] Work Phone: Comment on above: Once for 1 Occurrences starting 04/30/20 until 04/30/2021 MRI LUMBAR SPINE W W O CONTRAST [facility] Work Phone: End: 08-30-2019 MRI LUMBAR SPINE W WO CONTRAST MRI LUMBAR SPINE W WO CONTRAST Imaging Routine Once for 1 Occurrences starting 08/30/2019 until 08/30/2019 [facility] Work Phone: Comment on above: Once for 1 Occurrences starting 08/30/20 19 until 08/30/2019 Patient Education ED Bronchitis with Wheezing (Adult) ED Sinusitis (Antibiotic Treatment) [facility] Work Phone: Patient referral [facility] Work Phone: End: 05-02-2024 Radex spine cervical 4 or 5 views XR CERV OTHER 4V AP/LAT/OBL Radiology Routine Left arm pain Neck pain 1 Occurrences starting 04/03/2023 until 05/02/2024 [facility] Work Phone: Comment on above: 1 Occurrences starting 04/03/2023 until 05/02/2024 Rade[employer] spine cervical 4 or 5 views XR CERV OTHER 4V AP/LAT/OBL Radiology Routine Left arm pain Neck pain 04/03/2023 10:30 AM EDT [facility] Work Phone: Radiologic exam ches t 2 views XR CHEST 2V FRONTAL/LAT Radiology Routine SOB (shortness of breath) Bronchitis 04/22/2022 4:40 PM EDT [facility] Work Phone: SURGICAL PATHOLOGY [facility] Work Phone: Comment on above: Release Upon Ordering for 1 Occurrences starting 04/29/2024, 1 completed Troponin T.cardiac [Mass/volume] in Serum or Plasma by High sensitivity method [facility] Troponin T.cardiac [Mass/volume] in Serum or Plasma by High sensitivity method [facility] End: 09-13-2020 Troponin x1 Troponin x1 Lab STAT One Time for 1 Occurrences starting 09/13/2020 until 09/13/2020 [facility] Comment on above: One Time for 1 Occurrences starting 08/23 until 09/13/2020 Troponin x1 Troponin x1 Lab STAT 09/13/2020 12:43 PM EST [facility] End: 04-03-2024 US CAROTID ARTERIES [facility] US CAROTID ARTERIES [facility] Vascular Lab Routine Bilateral carotid artery stenosis 1 Occurrences starting 04/03/2023 until 04/03/2024 [facility] Work Phone: Comment on above: 1 Occurrences starting 04/03/2023 until 04/03/2024 End: 05-02-2025 US Extremity - left US EXTREMITY MASS/FLUID COLLECTION LEFT Radiology Routine Soft tissue mass 1 Occurrences starting 04/02/2024 until 05/02/2025 [facility] Work Phone: Comment on above: 1 Occurrences starting 04/02/2024 until 05/02/2025 US Head and neck sof t tissue US HEAD/NECK SOFT TISSUE OTHER Radiology Routine Neck mass 11/07/2023 10:54 AM EST [facility] Work Phone: End: 11-25-2024 US HEAD/NECK SOFT TISSUE OTHER US HEAD/NECK SOFT TISSUE OTHER Radiology Routine Neck mass 1 Occurrences starting 10/27/2023 until 11/25/2024 [facility] Work Phone: Comment on above: 1 Occurrences starting 10/27/2023 until 11/25/2024 [facility] Immunizations Immunization Date Immunization Notes Care Provider Buster wiggins 06-11-2022 influenza, high-dose , quadrivalent vaccine (FLUZONE HIGH DOSE QUADRIVALENT) Ma Nurse Work Phone: [facility] Work Phone: 06-11-2022 pneumococcal (PCV20) vaccine, 20 valent (PREVNAR 20) Ma Nurse Work Phone: [facility] Work Phone: 06-11-2022 pneumococcal Conjuga te, unspecified formulation Ma Nurse Work Phone: [facility] Work Phone: 06-11-2022 influenza virus vacc ine, unspecified formulation César Suggs DO Work Phone: [facility] 05-22-2022 pneumococcal PCV20 vaccine (PREVNAR 20) 0.5 mL injection Chinyere Shea RN Work Phone: [facility] Work Phone: Comment on above: Inject 0.5 mL intram uscularly one time only for 1 dose. 06-23-2013 influenza virus vacc ine, unspecified formulation Sylvia Lizama MD Work Phone: [facility] 06-29-2011 influenza virus vacc ine, unspecified formulation Sylvia Lizama MD Work Phone: [facility] 12-11-2010 tetanus and diphther ia toxoids, adsorbed, preservative free, for adult use (2 Lf of tetanus toxoid and 2 Lf of diphtheria toxoid) Sylvia Lizama MD Work Phone: [facility] Work Phone: 08-07-2010 influenza virus vacc ine, unspecified formulation Sylvia Lizama MD Work Phone: [facility] 06-12-2009 influenza virus vacc ine, unspecified formulation Sylvia Lizama MD Work Phone: [facility] Work Phone: 06-12-2009 pneumococcal polysaccharide vaccine, 23 valent Sylvia Lizama MD Work Phone: [facility] Work Phone: 08-05-2008 influenza virus vacc ine, unspecified formulation Sylvia Lizama MD Work Phone: [facility] 08-22-2005 influenza virus vacc ine, unspecified formulation Sylvia Lizama MD Work Phone: [facility] Work Phone: Payers Date Payer Category Payer Self-pay [id number] 2017 Private Health Insurance [facility] MEDICARE SUPP xxxxxxxxxxx 2017-Present [phone] [address] [place] [address] xxxxxxxxxxx [id number] 2017 Private Health Insurance [facility] AAR SUPPLEMENT [id number] 2017-Present [phone] [address] [place] [address] Indemnity [id number] 2017 Private Health Insurance [id number] 2014 Medicare [id number] 2014 Medicare MEDICARE MEDICAR E PART A AND B xxxxxxxxxx 2014-Present [phone] [place] [address] xxxxxxxxxx [id number] 2010 Private Health Insurance [id number] 2008 Medicare 2008 Medicare MEDICARE MEDICAR E A AND B [id number] 2008-Present [phone] [place] [address] Medicare [id number] 2008 Medicare [id number] .[id number] Unknown [id number]. 1.13.159.2 .[id number] Unknown [id number] 2.16.840.1.958667.3.579.2 .462 Unknown [id number] 2.16.840.1.079199.3.579.2 .462 Unknown [id number] 2.16.840.1.167923.3.579.2 .462 Unknown [id number] 2.16.840.1.703041.3.579.2 .462 Unknown [id number] 2.16.840.1.797992.3.579.2 .462 Unknown [id number] 2.16.840.1.298898.3.579.2 .462 Unknown [id number] 2.16.840.1.205877.3.579.2 .462 Unknown [id number] 2.16.840.1.771909.3.579.2 .462 Unknown [id number] 2.16.840.1.812566.3.579.2 .462 Unknown [id number] 2.16.840.1.033192.3.579.2 .462 Unknown [id number] 2.16.840.1.300524.3.579.2 .462 Unknown [id number] 2.16.840.1.219738.3.579.2 .462 Unknown [id number] 2.16.840.1.243374.3.579.2 .462 Unknown [id number] 2.16.840.1.126713.3.579.2 .462 Unknown [id number] 2.16.840.1.043889.3.579.2 .462 Unknown [id number] 2.16.840.1.423887.3.579.2 .462 Unknown [id number] 2.16.840.1.743193.3.579.2 .462 Unknown [id number] 2.16.840.1.131935.3.579.2 .462 Unknown [id number] 2.16.840.1.305736.3.579.2 .462 Unknown [id number] 2.16.840.1.453450.3.579.2 .462 Unknown [id number] 2.16.840.1.375440.3.579.2 .462 Unknown [id number] 2.16.840.1.264633.3.579.2 .462 Unknown [id number] 2.16.840.1.010695.3.579.2 .462 Social History Date Type Detail Facility Start: 10-11-2018 End: 05-07-2022 Tobacco smoking status NHIS Never smoker [facility] Start: 10-11-2018 End: 05-07-2022 Tobacco use and exposure Never used [employer] Start: 10-11-2018 End: 05-10-2025 Alcohol intake Current non-drinker of alcohol (finding) [employer] Work Phone: Start: 1945 Sex Assigned At Not on file [employer] Work Phone: Start: 07-30-2020 End: 07-23-2022 Exposure to SARS-CoV-2 (event) Not sure [facility] Start: 12-12-2021 End: 12-12-2021 Assertion Unknown if ever smoked [facility] Work Phone: Start: 10-16-2021 End: 11-14-2022 History SDOH Alcohol Frequency 1 [facility] Start: 09-26-2020 History SDOH Alcohol Std Drinks 98 [facility] Start: 09-26-2020 End: 10-16-2021 History SDOH Social Connections Phone 5 [facility] Start: 10-16-2021 End: 11-14-2022 History SDOH Social Connections Get Together 4 [facility] Start: 10-16-2021 End: 11-14-2022 History SDOH Social Connections Buddhism 3 [facility] Start: 09-26-2020 End: 11-14-2022 History SDOH Physical Activity MPS 2 [facility] Start: 09-26-2020 Education 11 [facility] Start: 1945 Sex Assigned At Female [facility] Start: 09-04-2020 None [facility] Start: 09-04-2020 Alone [facility] Start: 01-22-2021 Non-smoker [facility] Start: 11-14-2022 History SDOH Alcohol Std Drinks 0 [facility] Start: 11-14-2022 End: 02-21-2023 History of Social function [facility] Start: 11-14-2022 End: 02-21-2023 Social connection and isolation panel [facility] Start: 08-23-2012 Active Member of Clubs or Organizations Not on file [facility] Are you now , , , , never or living with a partner? [facility] How often to you hav e a drink containing alcohol? Never [facility] Do you feel stress - tense, restless, nervous, or anxious, or unable to sleep at night because your mind is troubled all the time - these days [OSQ] Only a little [facility] (I/We) worried whekraig er (my/our) food would run out before (I/we) got money to buy more. Never true [facility] In the past 12 month s, was there a time when you were not able to pay the mortgage or rent on time? No [facility] Start: 08-07-2020 Gender identity Identifies as female gender (finding) [facility] Start: 08-07-2020 Sexual orientation Heterosexual (finding) [facility] Do you belong to any clubs or organizations such as restorationist groups, unions, fraternal or athletic groups, or school groups? Yes [facility] Do you feel stress - tense, restless, nervous, or anxious, or unable to sleep at night because your mind is troubled all the time - these days [OSQ] Not at all [facility] How hard is it for y ou to pay for the very basics like food, housing, medical care, and heating Not very hard [facility] Do you feel stress - tense, restless, nervous, or anxious, or unable to sleep at night because your mind is troubled all the time - these days [OSQ] To some extent [facility] Start: 11-26-2024 End: 12-01-2024 Sex Female (finding) [facility] Medical Equipment Procedure Code Equipment Code Equipment Origin al Text Equipment Identifier Dates Total cholecystectomy with exploration of common bile duct Ligation clip, synthetic polymer, non-bioabsorbable [id number] FDA Start: 08-02-2022 Ivc Filter Trap Ease Permanent-08/28/2018 [id number] Start: 08-28-2018 Comment on above: Description: IVC mirna ter. Right groin access. TrapEase Permanent Vena Cava Filter. Port Powerport M ri 8fr Plastic Polyurethane Implantable Infusion - [id number] Start: 06-05-2022 Goals Date Patient Goal [...] back Functional Status Date Assessment Result Facility 04-05-2025 Functional status Ambulates [facility] Work Phone: 03-01-2025 Total score [AUDIT-C] 0 03/01/20 25 11:12 AM NATALIYAT Sabrina Cavanaugh MA [facility] 12-01-2024 Functional status [facility] Work Phone: 08-04-2022 Functional status Ambulates;Bath room Privilege [facility] Work Phone: 06-01-2021 Are you deaf, or do you have serious difficulty hearing No 06/01/2021 10:26 AM Neeru Ayoub, RN No [facility] 06-01-2021 Are you blind, or do you have serious difficulty seeing, even when wearing glasses No 06/01/2021 10:26 AM Neeru Ayoub, RN No [facility] 06-01-2021 Do you have serious difficulty walking or climbing stairs No 06/01/2021 10:26 AM Neeru Ayoub RN No [facility] 06-01-2021 Do you have difficul ty dressing or bathing No 06/01/2021 10:26 AM Neeru Ayoub, FRANCESCO No [facility] 06-01-2021 Because of a physica l, mental, or emotional condition, do you have difficulty doing errands alone such as visiting a physician's office or shopping No 06/01/2021 10:26 AM NATALIYAT Neeru Butterfield, FRANCESCO No [facility] Mental Status Date Assessment Result Facility 04-05-2025 Cognitive function Voice/Name [facility] Work Phone: 04-01-2025 Cognitive function Level Of Cons ciousness Awake;Alert;Appropriate;Fol lows Commands [facility] Work Phone: 12-01-2024 Cognitive function Voice/Name [facility] Work Phone: 11-06-2024 Cognitive function Level Of Cons ciousness Awake;Alert;Appropriate;Fol lows Commands [facility] Work Phone: 08-04-2022 Cognitive function Voice/Name [facility] Work Phone: 06-01-2021 Because of a physica l, mental, or emotional condition, do you have serious difficulty concentrating, remembering, or making decisions No 06/01/2021 10:26 AM EDT Neeru Butterfield, FRANCESCO No [facility] Clinical Notes 08-30-2020 to 05-10-2025 Patient InstructionsSuJudith samuel APRN.COMPENSATION ASSOCIATE - 05/10/2025 12:59 PM Elida Salinas, PT - 05/10/2025 9:43 AM EDTTelephone Encounter - Sera Bills RN - 04/22/2025 10:56 AM EDT Note Date & Type Note Facility 05-10-2025 Instructions Judith Pickard APRN.COMPENSATION ASSOCIATE - 05/10/2025 1:20 PM EDT - Add clonidine 0.1 mg: take twice daily (morning and evening). - Continue carvedilol (Coreg) 25 mg twice daily as before. - Adjust losartan to 100 mg once daily (take in the morning). - Check your blood pressure at home every morning and evening for one week. Record two readings each day and send them to the clinic so we can assess how the new medication is working. documented in this encounter [facility] 05-10-2025 History of Presen t illness Narrative This is a 79 year old female who presents today with: Patient presents with: Hypertension: Follow up HISTORY OF PRESENT ILLNESS: Lisa Up is a 79 year old female. Patient presents with: Hypertension: Follow up HTN: Patient is compliant with meds Taking more than ordered Monitors bp at home: Yes. 240/88, took pill and went to 170 SBP Denies side effects: Some swelling. Chest pain: Twice a day- sharp pains that last seconds. Dyspnea: With exertion. Edema: Yes. Palpitations: No. Syncope: No. Headache: Yes. Dizziness: A little. Lisa Up is an 79-year-old female with a history of HTN, hypothyroidism, and CHRISTIANA, presenting for evaluation of uncontrolled HTN. Hypertension: - Longstanding history of HTN. - Family history of HTN. - Current medications: losartan 200 mg daily, carvedilol 25 mg BID, clonidine 0.1 mg BID. - Discontinued spironolactone; uncertain of reason. - Home BP readings consistently elevated, with recent readings as high as 245/88 mmHg in the morning. - Reports BP decreases to 170s/80s after taking medication. - Experiences sharp chest pains twice daily, dyspnea on exertion, peripheral edema (worse at night), lightheadedness, and headaches. - Denies palpitations. - Recent PT visit; PT advised BP control before further treatment. - History of tinnitus; notes improvement since medication changes. - Allergies to certain antihypertensive medications. Hypothyroidism: - Currently taking thyroid medication. - Inquired about discontinuing thyroid medication after reading an article. Obstructive Sleep Apnea: - Diagnosed with CHRISTIANA; owns a CPAP machine but does not use it. - Reports xerostomia upon waking. - Expresses difficulty with CPAP mask fit. Weight Management: - Engaged in weight loss efforts since the beginning of the year. - Walks 3-4 miles daily for the past two years. - Recently implemented a stricter diet. - Reports visible weight loss. PAST MEDICAL HISTORY: PAST MEDICAL HISTORY Diagnosis [...] NEISHA VAGINAL HYSTERECTOMY ALLERGIES Covid-19 Vaccine, Mrna, [id number], Lnp-S (Moderna); Adhesive; Erythromycin; Latex; Lisinopril; Nafcillin; Nifedipine; Norvasc [Amlodipine Besylate]; and Wasps MEDICATIONS Current Outpatient Medications Medication Sig gabapentin (NEURONTIN) 300 mg capsule Take 1 capsule by mouth daily at bedtime for 90 days. (Patient taking differently: Take 400 mg by mouth two times a day.) levothyroxine (SYNTHROID) 75 mcg tablet Take 1 tablet by mouth daily before breakfast. meclizine (ANTIVERT) 25 mg tab Take 25 [...] as instructed every 4 hours as needed. carvedilol (COREG) 25 mg tablet Take 1 tablet by mouth two times a day. losartan (COZAAR) 100 mg tablet Take 1 tablet by mouth once daily. (Patient taking differently: Take 100 mg by mouth two times a day.) apixaban (ELIQUIS) 5 mg tab(s) Take 1 tablet by mouth two times a day. EPINEPHrine (EPIPEN) 0.3 mg/0.3 mL auto-injector Use as directed OTC PRODUCT Super Snooze with Melatonin: Take one capsule by mouth at bedtime as needed. acetaminophen 650 mg CR tablet Take 650 mg by mouth every 8 hours as needed. multivitamin/iron/folic acid (CENTRUM ULTRA WOMEN'S ORAL) Take 1 tablet by mouth once daily. losartan (COZAAR) 25 mg tablet Take 1 tablet by mouth once daily. (Patient not taking: Reported on 05/10/2025) spironolactone (ALDACTONE) 25 mg tablet Take 1 tablet by mouth once daily. (Patient not taking: Reported on 04/15/2025) potassium chloride (K-TAB) 10 mEq tablet Take 1 tablet by mouth two times a day. (Patient not taking: Reported on 04/15/2025) No current facility-administered medications for this visit. FAMILY HISTORY Problem Relation Age of Onset Heart Mother Cancer Mother lung Heart Father other (Other) Father Heart Brother ND, aneurysm Migraines Daughter Macular Degen Maternal Aunt SOCIAL HISTORY[1] REVIEW OF SYSTEMS Constitutional: (+) weight loss Head: (+) headaches Ears/Nose/Mouth/Throat: (+) tinnitus, (+) dry mouth Cardiovascular: (+) chest pain, (+) edema, (-) palpitations Respiratory: (+) dyspnea on exertion Neurological: (+) lightheadedness EXAM: BP 178/88 Pulse 61 Wt 112.5 kg (248 lb) SpO2 97% BMI 45.36 kg/m PHYSICAL EXAM: GENERAL: NAD, alert and oriented. SKIN: Unremarkable, no rash or skin lesions. HEAD: Normocephalic. LUNGS: Clear to auscultation bilaterally, no wheezes/rhonchi/rales. HEART: Regular rate and rhythm, no murmurs. No ectopy. EXTREMITIES: Normal, no deformities, no skin discoloration, trace edema. NEURO: Awake, alert and oriented x3, cranial nerves II-XII grossly intact, normal gait, no involuntary motions. LABS: ASSESSMENT/PLAN: 1. Essential tremor - ICD9: 333.1, ICD10: G25.0 (primary diagnosis) Renewed medication - GABAPENTIN 400 MG CAPSULE 2. Chronic migraine without aura, with intractable migraine, so stated, with status migrainosus - ICD9: 346.73, ICD10: G43.711 Ongoing, likely related to migraine - GABAPENTIN 400 MG CAPSULE 3. Essential hypertension - ICD9: 401.9, ICD10: I10 - Uncontrolled - Recommend home blood pressure monitoring, to bring results to next visit - Encouraged sodium restriction, DASH or Mediterranean diet - Recommend regular aerobic exercise - LOSARTAN 100 MG TABLET daily - CLONIDINE HCL 0.1 MG TABLET 2 x day - Carvedilol 25 2 x day 4. Chronic kidney disease, unspecified CKD stage - ICD9: 585.9, ICD10: N18.9 - eGFR: 71 Stable - Improved 5. Hypothyroidism, unspecified type - ICD9: 244.9, ICD10: E03.9 - Instructed patient on importance of taking on an empty stomach either first thing in the morning or at bedtime. - Stable Discussed treatment plan and patient voices understanding. Patient's questions answered appropriately. Medications and potential side effects were discussed and patient voices understanding. Return to the office as scheduled or as needed for worsening/no improvement. Judith Pickard APRN.COMPENSATION ASSOCIATE [1] Social History Tobacco Use Smoking status: Never Smokeless tobacco: Never Vaping Use Vaping status: Never Used Substance Use Topics Alcohol use: No Drug use: No documented in this encounter [facility] 05-10-2025 History of Presen t illness Narrative Images from the original note were not included. 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 The patient presents with impairments in ADL's, balance, patient reported outcome measures, and symptom management. PROMIS (Patient-Reported Outcomes Measurement Information System) scores were reviewed and identified as a rehabilitation concern. Prognosis for therapy is Fair due to: poor understanding of deficits, chronic nature of impairments, clinical presentation . The patient will benefit from skilled therapy services to meet the goals established for this plan of care as noted below. Goals for Episode of Care: established 05/10/25 Patient will report no falls. Improve score on Timed Up and Go Test to less than 20 seconds to reflect decreased fall risk. Patient will demonstrate independent and proper use of assisstive device to allow for improved walking quality and safety therefore reducing the risk of falls. Patient Goals: reduce fall risk and head pressure causing her to pass out. Time Frame for Goals and Treatment : 06/21/25 Planned Interventions, Frequency, and Duration: Current Frequency: 1x/week Duration: 6 weeks Total Number of Visits Planned: 6 Planned Treatment Interventions: Therapeutic exercise (61684), Neuromuscular re-education (88910), Manual therapy (38084), Therapeutic activities (00346), Self-chcf management (40068), Gait Training (02728) PLAN FOR NEXT VISIT: pt. to f/u with physician. Measure BP before balance training Patient demonstrates good understanding of plan of care and treatment. The above goals and plan of care were discussed and agreed upon by patient/family. SUBJECTIVE: for migraines with dizziness. Tylenol effective for reducing symptoms. Pt. gets 3x migraines a week. Mentions she has high blood pressure and this correlates with increased ROBIN. Taking her BP medication does reduce symptoms. BP medication changes have improved symptoms. Pt. describes getting a sound in the head even at rest but this has improved since BP medication changes. Pt. daughter present reports that pt. passes out. Pt. lives alone. Pt. passed out 4 months ago unwitnessed until family found her awake, she had laid there for 12 hours. Medically, the hospital determined it was BP related. Patient Goals: reduce fall risk and head pressure causing her to pass out. Functional Limitations: walking Prior Level of Function: Independent without limitations Intake Information: Prescription present Previous Treatment: None Falls Interview: Fall without injury in the last year Concussion History of Concussion: No Vestibular Symptoms present for: months Symptom onset: gradual Dizziness: No Imbalance: Yes Imbalance triggered by: Walking Imbalance Comments: uses a rollator Fall Assessment: History of falls Frequency of falls: Less than monthly When was your most recent fall?: 4 months ago, pt. passed out at home Did the fall occur inside or outside?: inside How did the fall occur?: walking in the house - BP Injuries resulting from fall? : no Dizziness during fall?: unsure How often do you lose your balance?: walking, any amount of distance Nausea: no Motion Sickness: None Headache: Yes Description: pressure Rating of current symptoms: 5/10 Location: parietal region Neck Symptoms: No Ear Symptoms: No Hearing Changes: No recent changes Tinnitus: both ears equally Tinnitus Description: ringing Tinnitus Frequency: Intermittent Sleep Affected by Symptoms: Not affected by dizziness, not affected by pain History of Syncope: Yes (4 months ago and within the year before that) Denies: neurological complaints, visual changes, focal weakness Reports: neuropathy, headaches, dizziness, tremors Pain: Pain Pain Level: 0 Pain Location: Neck Post Treatment Pain Post Treatment Pain Level: No Change PROMIS Scales 05/03/2025 05/12/2023 04/14/2023 Higher is Better Phys Func - T Score 39 (moderate dysfunction) 41 (mild dysfunction) Phys Func - Percentile 14 18 Self-Eff Symptom - T Score 36 (Low) 44 (Average) 41 (Average) Self-Eff Symptom - Percentile 8 27 18 Proxy-reported T-Score and Percentile Interpretation T-scores: mean of general population = 50. 5 points is clinically meaningfully difference Percentiles provide an indication of how the patient's score ranks in relation to the general population. Higher percentile rankings indicate better function/quality of life. 50th percentile is the average of the general population and indicates half of respondents had a worse score. OBJECTIVE MEASURES WITH LEVEL OF FUNCTION: Oculomotor Testing Fixation Present Ocular ROM: WNL Spontaneous Nystagmus: No nystagmus Gaze Evoked Nystagmus: Not Present Smooth pursuit: Horizontal, Vertical and Diagonal all WNL Saccadic eye movements: Horizontal, vertical and oblique all WNL. Head Thrusts: Negative Cervical Spine ROM Cervical ROM : Limitation AROM (no change in ROBIN symptoms with each movement) Cervical Protrusion AROM: Normal Cervical Retraction AROM: Moderate limitation Cervical Flexion AROM: Normal Cervical Extension AROM: Normal Cervical Side-Bend Right AROM: Moderate limitation Cervical Side-Bend Left AROM: Moderate limitation Cervical Rotation Right AROM: Normal Cervical Rotation Left AROM: Normal Gait Gait: Supervision Gait Distance (feet): 50 Gait Device: Rollator Gait Deviations: General Deviations General Deviations/Observations: Flexed trunk posture, Step length decreased Functional Performance Test Results Assistive Device: Rollator Timed Up and Go (sec): 20 sec Vitals BP: 176/83 Pulse: 65 SpO2: 96 % Education: Education Learning Preferences: Demonstration, Explanation, Performance Barriers: Low activity tolerance/endurance Learning/educational needs: Plan of Care, Home exercise program, Posture, Gait Training Education Provided: Yes, see treatment interventions for education provided Education Provided To: Patient Education Mode/Type: Demonstration, Explanation/Discussion, Literature/Printed Materials, Performance Response to Education/Teach Back: States/Identifies, Return Demonstration TREATMENT: PT Treatment Interventions: Self-Usp Management Evaluation Self-Usp Management: 1: strongly advised for pt. to f/u with physician regarding BP still elevated 2: discussed that Symptoms seem more corrlated with elevated BP per pt. subjective report and presence of symptoms even at rest 3: discussed negative testing inner ear, however PT can see pt. for balance training. Balance training will not be completed if pt. shows up to PT with systolic BP >200 mmHg, therefore recommend this is under better control before starting PT visits Skilled Intervention: Skilled judgment in the selection of proper modification for activity of daily living/home management based on clinical presentation, deficits, and needs. Reviewed patient specific diagnosis in relation to activities of daily living/home management. Activity progression based on professional judgement. Billing * Evaluation Low Complexity: 1 Unit Self-Care/Home Management Treatment Minutes: 13 Skilled Treatment Time Minutes (timed and untimed codes): 33 Total Session Time (minutes): 33 Session Start Time : 941 Session Stop Time : 1015 Elida Pennington PT documented in this encounter [facility] 04-22-2025 Telephone encount er Note Patient given provider's information below, with one repeat of instructions for safe measure. Pt verbalized understanding. Sera Bills RN [facility] 04-22-2025 Miscellaneous Notes Formattin g of this note might be different from the original. Patient given provider's information below, with one repeat of instructions for safe measure. Pt verbalized understanding. Sera Bills RN Please reinforce that patient must take her carvedilol twice a day, morning and night. Should probably take losartan 100 mg in the morning and 20 mg in the evening. She can recheck her blood pressure in 1 hour after taking blood pressure medications. If her blood pressure is high, over 170 on the top number over 90 on the bottom number, she should go to the emergency room. Patient calling in and states her BP this morning is 208/96 (approx 30 min ago). She has not taken her BP medications yet; takes losartan 25 mg daily and carvedilol 25 mg 2 times daily. States she will take her BP meds now. She denies any sx's now-no headache, chest pain, Shortness of Breath, blurred vision, lightheadedness or other sx's. Reports yesterday her systolic BP was running in the 170's. TERENCE was 04/15/25 with Fabby Pickard CNP. NOV is 09/01/25 with Fabby Pickard for 6 month follow up. Please advise patient. Sera Bills RN documented in this encounter [facility] 04-22-2025 Telephone encount er Note Please reinforce that patient must take her carvedilol twice a day, morning and night. Should probably take losartan 100 mg in the morning and 20 mg in the evening. She can recheck her blood pressure in 1 hour after taking blood pressure medications. If her blood pressure is high, over 170 on the top number over 90 on the bottom number, she should go to the emergency room. [facility] 04-22-2025 Telephone encount er Note Patient calling in and states her BP this morning is 208/96 (approx 30 min ago). She has not taken her BP medications yet; takes losartan 25 mg daily and carvedilol 25 mg 2 times daily. States she will take her BP meds now. She denies any sx's now-no headache, chest pain, Shortness of Breath, blurred vision, lightheadedness or other sx's. Reports yesterday her systolic BP was running in the 170's. TERENCE was 04/15/25 with Fabby Pickard CNP. NOV is 09/01/25 with Fabby Pickard for 6 month follow up. Please advise patient. Sera Bills RN [facility] 04-15-2025 Instructions Judith Pickard APRN.CNP - 04/15/2025 12:17 PM EDT - CONSULT TO NEUROLOGY - CONSULT TO PHYSICAL THERAPY for vestibular therapy - DME SUPPLY OR ACCESSORY, NOS for guardian alert - wean down gabapentin from 300 mg 2 x day just nights (not taking 4 x day as written) documented in this encounter [facility] 04-15-2025 History of Presen t illness Narrative This is a 79 year old female who presents today with: Patient presents with: Hospital F/U: Vertigo Diplopia HISTORY OF PRESENT ILLNESS: Lisa Up is a 79 year old female. Patient presents with: Hospital F/U: Vertigo Diplopia Hospital follow up for dizziness Noise in head loud and sound like 2 things hitting together. Sleeps a lot. Always has a headache- sometimes dull [facility] Dx with vertigo and orthostatic hypotension- stopped 2 medications for BP and reduced losartan PAST MEDICAL HISTORY: PAST MEDICAL HISTORY Diagnosis [...] NEISHA VAGINAL HYSTERECTOMY ALLERGIES Covid-19 Vaccine, Mrna, [id number], Lnp-S (Moderna); Adhesive; Erythromycin; Latex; Lisinopril; Nafcillin; Nifedipine; Norvasc [Amlodipine Besylate]; and Wasps MEDICATIONS Current Outpatient Medications Medication Sig losartan (COZAAR) 25 mg tablet Take 1 tablet by mouth once daily. gabapentin (NEURONTIN) 300 mg capsule Take 1 capsule by mouth four times daily for 180 days. levothyroxine (SYNTHROID) 75 mcg tablet Take 1 tablet by mouth daily before breakfast. meclizine (ANTIVERT) 25 mg tab Take 25 mg by mouth three times a day as needed. pantoprazole DR (PROTONIX) 20 mg tablet Take 20 mg by mouth every morning. loratadine (CLARITIN) 10 mg tablet Take 10 mg by mouth every morning. albuterol HFA (PROVENTIL HFA, VENTOLIN HFA) 90 mcg/actuation inhaler Inhale 2 Puffs as instructed every 4 hours as needed. carvedilol (COREG) 25 mg tablet Take 1 tablet by mouth two times a day. apixaban (ELIQUIS) 5 mg tab(s) Take 1 tablet by mouth two times a day. OTC PRODUCT Super Snooze with Melatonin: Take one capsule by mouth at bedtime as needed. acetaminophen 650 mg CR tablet Take 650 mg by mouth every 8 hours as needed. multivitamin/iron/folic acid (CENTRUM ULTRA WOMEN'S ORAL) Take 1 tablet by mouth once daily. spironolactone (ALDACTONE) 25 mg tablet Take 1 tablet by mouth once daily. (Patient not taking: Reported on 04/15/2025) cloNIDine HCl (CATAPRES) 0.1 mg tablet Take 0.1 mg by mouth two times a day. (Patient not taking: Reported on 04/15/2025) levothyroxine 88 mcg cap Take 88 mcg by mouth every Friday. hydrALAZINE (APRESOLINE) 50 mg tablet Take 1 tablet by mouth two times a day. (Patient not taking: Reported on 04/15/2025) losartan (COZAAR) 100 mg tablet Take 1 tablet by mouth once daily. EPINEPHrine (EPIPEN) 0.3 mg/0.3 mL auto-injector Use as directed potassium chloride (K-TAB) 10 mEq tablet Take 1 tablet by mouth two times a day. (Patient not taking: Reported on 04/15/2025) No current facility-administered medications for this visit. FAMILY HISTORY Problem Relation Age of Onset Heart Mother Cancer Mother lung Heart Father other (Other) Father Heart Brother ND, aneurysm Migraines Daughter Macular Degen Maternal Aunt Social History Tobacco Use Smoking status: Never Smokeless tobacco: Never Vaping Use Vaping status: Never Used Substance Use Topics Alcohol use: No Drug use: No REVIEW OF SYSTEMS GENERAL: No weight loss, malaise or fevers/ some chills, weight gain HEENT: always frequent headaches, Constant loud noise like machines hitting one another hearing NECK: Negative for lumps, goiter, pain and significant neck swelling RESPIRATORY: Negative for cough, hemoptysis, or wheezing, + shortness of breath CARDIOVASCULAR: Negative for chest pain, leg swelling, orthopnea, or palpitations GI: No nausea, vomiting, or diarrhea/constipation. No hematochezia/melena. No heartburn or reflux symptoms. MUSCULOSKELETAL: Negative for joint pain, + swelling. NEURO: + history of headaches, + syncope, no paralysis, no seizures or tremors MOOD: Some depression, very forgetful EXAM: BP 138/78 Pulse 69 Wt 112.9 kg (249 lb) SpO2 99% BMI 45.54 kg/m PHYSICAL EXAM: Physical Exam Vitals reviewed. Constitutional: Comments: Weight gain HENT: Head: Normocephalic. Comments: Terrible noise in head all the time Right Ear: Tympanic membrane normal. Left Ear: Tympanic membrane normal. Ears: Comments: Bilateral ear canals dry and erythematous Nose: Rhinorrhea present. No congestion. Mouth/Throat: Mouth: Mucous membranes are moist. Pharynx: Oropharynx is clear. No oropharyngeal exudate or posterior oropharyngeal erythema. Eyes: Extraocular Movements: Extraocular movements intact. Conjunctiva/sclera: Conjunctivae normal. Pupils: Pupils are equal, round, and reactive to light. Comments: Some double vision when she stares at something too long Nystagmus when checking EOM Neck: Vascular: No carotid bruit. Cardiovascular: Rate and Rhythm: Normal rate and regular rhythm. Pulses: Normal pulses. Heart sounds: Normal heart sounds. Pulmonary: Effort: Pulmonary effort is normal. No respiratory distress. Breath sounds: Normal breath sounds. Abdominal: General: Bowel sounds are normal. There is no distension. Palpations: Abdomen is soft. Tenderness: There is no abdominal tenderness. Musculoskeletal: General: No swelling or tenderness. Cervical back: Normal range of motion and neck supple. Skin: General: Skin is warm and dry. Neurological: General: No focal deficit present. Mental Status: She is alert and oriented to person, place, and time. Mental status is at baseline. Cranial Nerves: No cranial nerve deficit. Psychiatric: Mood and Affect: Mood normal. LABS: ASSESSMENT/PLAN: 1. Disorder of labyrinth, unspecified laterality - ICD9: 386.9, ICD10: H81.90 (primary diagnosis) worsened - CONSULT TO NEUROLOGY - CONSULT TO PHYSICAL THERAPY for vestibular therapy - DME SUPPLY OR ACCESSORY, NOS for guardian alert - wean down gabapentin from 300 mg 2 x day just nights (not taking 4 x day as written) 2. Migraine with aura, not intractable, without status migrainosus - ICD9: 346.00, ICD10: G43.109 ongoing - CONSULT TO NEUROLOGY - CONSULT TO PHYSICAL THERAPY 3. Neuropathy - ICD9: 355.9, ICD10: G62.9 Decrease gabapentin - GABAPENTIN 300 MG CAPSULE to qhs Discussed treatment plan and patient voices understanding. Patient's questions answered appropriately. Medications and potential side effects were discussed and patient voices understanding. Return to the office as scheduled or as needed for worsening/no improvement. Judith Pickard APRN.COMPENSATION ASSOCIATE documented in this encounter [facility] 04-12-2025 Telephone encount er Note Patient was seen in the emergency room at [facility] April 05 for vertigo and diplopia. Dizziness and giddiness is ongoing but improved. Secondary to hypotension, possibly orthostatic. Did check orthostatics today and that is negative. Continue as needed with meclizine PT OT evaluation Migraine headaches are chronic Migraine improved with 10 mg of IV dexamethasone on April 02 She does have obstructive sleep apnea continue CPAP Obesity, hypertension, hypothyroid, depression, non-Hodgkin's lymphoma, history of DVT continue apixaban. WBC 6.0, hemoglobin 13.4, hematocrit 41.1, platelet count 147 Sodium 141, potassium 4.2, BUN 14, creatinine 0.91, glucose 107 Dizziness thought to be related to vertigo But appears more related to blood pressure medications. Clonidine stopped, hydralazine stopped, decrease losartan from 100 down to 25 mg, continue carvedilol at previous dose. [facility] 04-12-2025 Miscellaneous Notes Formattin g of this note might be different from the original. Patient was seen in the emergency room at [facility] April 05 for vertigo and diplopia. Dizziness and giddiness is ongoing but improved. Secondary to hypotension, possibly orthostatic. Did check orthostatics today and that is negative. Continue as needed with meclizine PT OT evaluation Migraine headaches are chronic Migraine improved with 10 mg of IV dexamethasone on April 02 She does have obstructive sleep apnea continue CPAP Obesity, hypertension, hypothyroid, depression, non-Hodgkin's lymphoma, history of DVT continue apixaban. WBC 6.0, hemoglobin 13.4, hematocrit 41.1, platelet count 147 Sodium 141, potassium 4.2, BUN 14, creatinine 0.91, glucose 107 Dizziness thought to be related to vertigo But appears more related to blood pressure medications. Clonidine stopped, hydralazine stopped, decrease losartan from 100 down to 25 mg, continue carvedilol at previous dose. documented in this encounter [facility] 04-05-2025 Progress note Note Date/Time April 05, 2025 2:36pm [facility] Medical Records Department [address] [place] [address] Progress Note - Hospitalist 04/05/25 0830 MR#: [id number] Acct: [id number] Name: LISA UP Rep #:[id number] : 1945 79 From: Andrade Tapia DO PCP: Dr. Sylvia Lizama MD Status:ADM I N Location: [place] [address] Reason for Visit Chief Complaint: Vertigo and diplopia. Subjective Subjective Still feeling dizzy but better overall. Objective Data Objective Data Vital Signs: Vital Signs Temp Pulse Resp BP Pulse Ox O2 Del Method 36.6 C 55 L 17 113/52 L 96 Room Air 04/05/25 08:11 04/05/25 08:11 04/05/25 08:11 04/05/25 08:11 04/05/25 08:11 04/05/25 08:11 Oxygen Delivery Method Room Air Weight: 110.223 kg Body Mass Index (BMI) 44.4 Intake & Output: Intake and Output for Last 24 Hours 04/03/25 04/04/25 04/05/25 23:59 23:59 23:59 Intake Total 1010 / 1010 600 / 600 Output Total 1650 / 1650 250 / 1050 1000 / 1000 Balance -640 / -640 350 / -450 -1000 / -1000 Lab / Micro Data 04/01/25 14:25 04/01/25 14:25 Physical Exam Const alert and no apparent distress HEENT head/scalp atraumatic and moist oral mucous membranes Resp normal respiratory effort, no retractions, no use of accessory muscles and clearto auscultation bilaterally Cardio regular rate, regular rhythm, S1 normal heart sound and S2 normal heart sound GI normal to inspection, nondistended, normoactive bowel sounds, soft to palpation and non-tender Extremity normal to inspection Neuro Sensorium / Orientation: awake and alert Assessment & Plan Assessment/Plan (1) Vertigo: PLAN: Ongoing but improved. Secondary to hypotension, possibly orthostatic hypotension. Patient was notably hypotensive and did make adjustments to her medications and seems to be improved. Did check orthostats today and that is negative. MRI brain negative. Continue with as needed meclizine. PT OT evaluate and treat. (2) Migraine headache: PLAN: Improved after 10mg of IV dexamethasone on 04/02. PLAN: Plan Chronic conditions * CHRISTIANA: Continue [...] patient. Patient wishes to be full code. DC home with [facility]. Waiting on urinalysis Charges/Coding Visit Charges Inpatient E&M: 06382 Subs Hosp L2 NIHSS NIHSS Nursing Documentation NIHSS Nursing Documentation: NIHSS: Ischemic Stroke/TIA Start: 04/01/25 19:46 Text: For ICU Patients: NIH sroke scale at Status: Complete presentation and every 2 hours or with change in RN caregiver Freq: [id number] Protocol: Activity Type Activity Date Activity User E-sign Co-sign Detail Recorded Client Recorded Date Recorded By Document 04/01/25 19:50 KW [id number] 04/01/25 19:59 KW 04/01/25 19:50 NIH Stroke Scale [NIHSS] A score of 0 is normal or asymptomatic . Total possible score is 42. Inpatient: RN or Physician to activate a stroke alert for onset of new stroke symptoms or with NIHSS increase >/= 3 points. Following change in neurological status, NIHSS will be performed per physician order or more frequently PRN. -1a. Level of Consciousness 0 - Alert; keenly responsive -1b. LOC Questions 0 - Answers BOTH questions correctly -1c. LOC Commands 0 - Performs BOTH tasks correctly -2. Best Gaze 0 - Normal -4. Facial Palsy 0 - Normal symmetrical movements -5a. Left Arm 0 - No drift; arm holds 90 ( or 45) degrees for full 10 seconds -5b. Right Arm 0 - No drift; arm holds 90 ( or 45) degrees for full 10 seconds -6a. Left Leg 0 - No drift; leg holds 30- degree position for full 5 seconds -6b. Right Leg 0 - No drift; leg holds 30- degree position for full 5 seconds -7. Limb Ataxia 0 - Absent -8. Sensory 0 - Normal; no sensory loss -9. Best Language 0 - No aphasia; normal -10. Dysarthria 0 - Normal -11. Extinction and Inattention 0 - No abnormality -Total 0 Query Text:A score of 0 is normal or asymptomatic. Total possible score is 42 . ED: Notify Physician for NIHSS increase by > / = 3 points. Inpatient: RN or Physician to activate a stroke alert for NIHSS increase of > / = 3 points. Coma Scale [Assess] -Eye Opening Spontaneous -Motor Obeys Commands -Verbal Oriented [Total] -Coma Scale Total 15 04/05/25 1436 <Electronically signed by Andrade Tapia DO> Cosigner Signature (if applicable): CC: ~ Signed [facility] Work Phone: [phone]) 950-190107-15-2025 Discharge summary [facility] Medical Records Department [address] [place] [address] Discharge Summary 04/05/25 1506 MR#: [id number] Acct: [id number] Name: LISA UP Rep #:[id number] : 1945 79 From: Andrade Tapia DO PCP: Dr. Sylvia Lizama MD Status:ADM I N Location: [place] [address] Providers Date of Admission: 04/01/25 Primary Care Physician: Dr. Sylvia Lizama MD Reason For Visit: VERTIGO DIPLOPIA Diagnosis Discharge Diagnosis (1) Vertigo: Status: Acute Code(s): R42 - Dizziness and giddiness Plan: Ongoing but improved. Secondary to hypotension, possibly orthostatic hypotension. Patient was notably hypotensive and did make adjustments to her medications and seems to be improved. Did check orthostats today and that is negative. MRI brain negative. Continue with as needed meclizine. PT OT evaluate and treat. (2) Migraine headache: Status: Chronic Code(s): G43.909 - Migraine, unspecified, not intractable, without status migrainosus Plan: Improved after 10mg of IV dexamethasone on 04/02. Plan Chronic conditions * CHRISTIANA: Continue CPAP [...] patient. Patient wishes to be full code. DC home Medications at Discharge Home Medications multivitamin with folic acid 400 mcg tablet (Thera) 1 tab PO DAILY vitamin 08/01/18 apixaban 5 mg tablet 5 mg PO BID blood thinner 08/13/20 levothyroxine 75 mcg tablet 75 mcg PO DAILY thyroid 07/30/22 carvedilol 25 mg tablet 25 mg PO BID blood pressure 03/24/24 gabapentin 400 mg capsule 400 mg PO BID nerve pain 03/24/24 meclizine 25 mg tablet 25 mg PO TID PRN dizziness 07/04/24 omeprazole 20 mg capsule,delayed release 20 mg PO DAILY PRN acid reflux 07/04/24 albuterol sulfate 90 mcg/actuation aerosol inhaler (Ventolin HFA) 2 puff inhalation Q4H PRN Wheezing 11/26/24 acetaminophen 325 mg tablet 1,000 mg (3.0769 x 325 mg) PO Q8H PRN PRN Pain 1-10 Or Fever>100.7 #0 tabs 04/04/25 losartan 25 mg tablet 25 mg PO DAILY #30 tabs 04/05/25 Hospital Course Operations None Procedures None Summary of Care Provided Minutes Spent on Discharge: 32 Weight / BMI Weight Weight: 110.223 kg Body Mass Index (BMI) 44.4 ABG / Lab / Microbiology Data 04/01/25 14:25 04/01/25 14:25 D/C Instructions DC O2, CPAP, BIPAP Needs Home O2 Discharge instructions: No Meaningful Use Info Meaningful Use Meaningful Use Diagnoses (Choose all that apply): None applicable Discharge Plan Admission Admit Date/Time: 04/01/25 17:35 Primary Reason for Your Visit: Vertigo Attending Provider: Andrade Tapia Primary Care Provider: Sylvia Lizama Instructions Additional Instructions / Restrictions: You had dizziness. She was thought to be due to your vertigo but appears to be more related with your blood pressure medications as the blood pressure medications may have caused her pressure to go too low causing feel dizzy. We have stopped your clonidine, hydralazine. Also decrease your losartan from 100- 25 daily. You may continue the carvedilol at the previous dose. If you are having ongoing issues with dizziness or passing out, notify your physician or return to the emergency room. Discharge Orders/Prescriptions Prescriptions: New acetaminophen 325 mg Tablet 1,000 mg PO Q8H PRN PRN (Reason: Pain 1-10 Or Fever>100.7) Qty: 0 0RF losartan 25 mg tablet 25 mg PO DAILY Qty: 30 0RF Continued multivitamin with folic acid [Thera] 1 TABLET tablet 1 tab PO DAILY apixaban 5 MG tablet 5 mg PO BID levothyroxine 75 mcg Tablet 75 mcg PO DAILY carvedilol 25 mg tablet 25 mg PO BID gabapentin 400 mg capsule 400 mg PO BID albuterol sulfate [Ventolin HFA] 90 mcg/actuation HFA aerosol inhaler 2 puff inhalation Q4H PRN (Reason: Wheezing) Rx Instructions: with spacer omeprazole 20 mg capsule,delayed release(DR/EC) 20 mg PO DAILY PRN (Reason: acid reflux) meclizine 25 mg tablet 25 mg PO TID PRN (Reason: dizziness) Patient Comments: PT STATES SHE SHOULD TAKE THIS BUT DOESN'T, ONLY IF SHE IS DIZZY. Discontinued potassium chloride 10 MEQ tablet 10 meq PO BID paroxetine HCl 10 mg tablet 10 mg PO DAILY hydralazine 50 mg tablet 50 mg PO BID Patient Comments: PT STATES HER DR SAID IF HER BLOOD PRESSURE IS HIGH, TAKE AN EXTRA DOSE. clonidine HCl 0.1 mg Tablet 0.1 mg PO BID 30 Days Qty: 60 0RF losartan 100 mg tablet 100 mg PO DAILY Referrals / Follow Up: Sylvia Lizama MD [Primary Care Provider] - 04/11/25 2:40 pm (Appointment is Crista Ayala N.P.) Disposition Disposition (needs filled in before D/C Order can be placed): Home Health Service Charges/Coding Visit Charges Inpatient E&M: 60918 Disch Hosp >30min 04/05/25 1511 Cosigner Signature (if applicable): CC: Dr. Andrade Tapia DO; Dr. Sylvia Lizama MD~ Signed [facility]07-15-2025 [facility] Medical Records Department [address] [place] [address] Discharge Summary 04/05/25 1506 MR#: [id number] Acct: [id number] Name: LISA UP Rep #: [id number] : 1945 79 From: Andrade Tapia DO PCP: Dr. Sylvia Lizama MD Status:ADM IN Location: [place] [id number] Providers Date of Admission: 04/01/25 Primary Care Physician: Dr. Sylvia Lizama MD Reason For Visit: VERTIGO DIPLOPIA Diagnosis Discharge Diagnosis (1) Vertigo: Status: Acute Code(s): R42 - Dizziness and giddiness Plan: Ongoing but improved. Secondary to hypotension, possibly orthostatic hypotension. Patient was notably hypotensive and did make adjustments to her medications and seems to be improved. Did check orthostats today and that is negative. MRI brain negative. Continue with as needed meclizine. PT OT evaluate and treat. (2) Migraine headache: Status: Chronic Code(s): G43.909 - Migraine, unspecified, not intractable, without status migrainosus Plan: Improved after 10mg of IV dexamethasone on 04/02. Plan Chronic conditions * CHRISTIANA: Continue CPAP [...] patient. Patient wishes to be full code. DC home Medications at Discharge Home Medications multivitamin with folic acid 400 mcg tablet (Thera) 1 tab PO DAILY vitamin 08/01/18 apixaban 5 mg tablet 5 mg PO BID blood thinner 08/13/20 levothyroxine 75 mcg tablet 75 mcg PO DAILY thyroid 07/30/22 carvedilol 25 mg tablet 25 mg PO BID blood pressure 03/24/24 gabapentin 400 mg capsule 400 mg PO BID nerve pain 03/24/24 meclizine 25 mg tablet 25 mg PO TID PRN dizziness 07/04/24 omeprazole 20 mg capsule,delayed release 20 mg PO DAILY PRN acid reflux 07/04/24 albuterol sulfate 90 mcg/actuation aerosol inhaler (Ventolin HFA) 2 puff inhalation Q4H PRN Wheezing 11/26/24 acetaminophen 325 mg tablet 1,000 mg (3.0769 x 325 mg) PO Q8H PRN PRN Pain 1-10 Or Fever>100.7 #0 tabs 04/04/25 losartan 25 mg tablet 25 mg PO DAILY #30 tabs 04/05/25 Hospital Course Operations None Procedures None Summary of Care Provided Minutes Spent on Discharge: 32 Weight / BMI Weight Weight: 110.223 kg Body Mass Index (BMI) 44.4 ABG / Lab / Microbiology Data 04/01/25 14:25 04/01/25 14:25 D/C Instructions DC O2, CPAP, BIPAP Needs Home O2 Discharge instructions: No Meaningful Use Info Meaningful Use Meaningful Use Diagnoses (Choose all that apply): None applicable Discharge Plan Admission Admit Date/Time: 04/01/25 17:35 Primary Reason for Your Visit: Vertigo Attending Provider: Andrade Tapia Primary Care Provider: Sylvia Lizama Instructions Additional Instructions / Restrictions: You had dizziness. She was thought to be due to your vertigo but appears to be more related with your blood pressure medications as the blood pressure medications may have caused her pressure to go too low causing feel dizzy. We have stopped your clonidine, hydralazine. Also decrease your losartan from 100-25 daily. You may continue the carvedilol at the previous dose. If you are having ongoing issues with dizziness or passing out, notify your physician or return to the emergency room. Discharge Orders/Prescriptions Prescriptions: New acetaminophen 325 mg Tablet 1,000 mg PO Q8H PRN PRN (Reason: Pain 1-10 Or Fever>100.7) Qty: 0 0RF losartan 25 mg tablet 25 mg PO DAILY Qty: 30 0RF Continued multivitamin with folic acid [Thera] 1 TABLET tablet 1 tab PO DAILY apixaban 5 MG tablet 5 mg PO BID levothyroxine 75 mcg Tablet 75 mcg PO DAILY carvedilol 25 mg tablet 25 mg PO BID gabapentin 400 mg capsule 400 mg PO BID albuterol sulfate [Ventolin HFA] 90 mcg/actuation HFA aerosol inhaler 2 puff inhalation Q4H PRN (Reason: Wheezing) Rx Instructions: with spacer omeprazole 20 mg capsule,delayed release(DR/EC) 20 mg PO DAILY PRN (Reason: acid reflux) meclizine 25 mg tablet 25 mg PO TID PRN (Reason: dizziness) Patient Comments: PT STATES SHE SHOULD TAKE THIS BUT DOESN'T, ONLY IF SHE IS DIZZY. Discontinued potassium chloride 10 MEQ tablet 10 meq PO BID paroxetine HCl 10 mg tablet 10 mg PO DAILY hydralazine 50 mg tablet 50 mg PO BID Patient Comments: PT STATES HER DR SAID IF HER BLOOD PRESSURE IS HIGH, TAKE AN EXTRA DOSE. clonidine HCl 0.1 mg Tablet 0.1 mg PO BID 30 Days Qty: 60 0RF losartan 100 mg tablet 100 mg PO DAILY Referrals / Follow Up: Sylvia Lizama MD [Primary Care Provider] - 04/11/25 2:40 pm (Appointment is (more content not included)...[facility]07-15-2025 Progress note [facility] Medical Records Department [address] [place] [address] Progress Note - Hospitalist 04/05/25 0830 MR#: [id number] Acct: [id number] Name: LISA UP Rep #:[id number] : 1945 79 From: Andrade Tapia DO PCP: Dr. Sylvia Lizama MD Status:ADM I N Location: [place] [address] Reason for Visit Chief Complaint: Vertigo and diplopia. Subjective Subjective Still feeling dizzy but better overall. Objective Data Objective Data Vital Signs: Vital Signs Temp Pulse Resp BP Pulse Ox O2 Del Method 36.6 C 55 L 17 113/52 L 96 Room Air 04/05/25 08:11 04/05/25 08:11 04/05/25 08:11 04/05/25 08:11 04/05/25 08:11 04/05/25 08:11 Oxygen Delivery Method Room Air Weight: 110.223 kg Body Mass Index (BMI) 44.4 Intake & Output: Intake and Output for Last 24 Hours 04/03/25 04/04/25 04/05/25 23:59 23:59 23:59 Intake Total 1010 / 1010 600 / 600 Output Total 1650 / 1650 250 / 1050 1000 / 1000 Balance -640 / -640 350 / -450 -1000 / -1000 Lab / Micro Data 04/01/25 14:25 04/01/25 14:25 Physical Exam Const alert and no apparent distress HEENT head/scalp atraumatic and moist oral mucous membranes Resp normal respiratory effort, no retractions, no use of accessory muscles and clearto auscultation bilaterally Cardio regular rate, regular rhythm, S1 normal heart sound and S2 normal heart sound GI normal to inspection, nondistended, normoactive bowel sounds, soft to palpation and non-tender Extremity normal to inspection Neuro Sensorium / Orientation: awake and alert Assessment & Plan Assessment/Plan (1) Vertigo: PLAN: Ongoing but improved. Secondary to hypotension, possibly orthostatic hypotension. Patient wasnotably hypotensive and did make adjustments to her medications and seems to be improved. Did checkorthostats today and that is negative. MRI brain negative. Continue with as needed meclizine. PT OT evaluate and treat. (2) Migraine headache: PLAN: Improved after 10mg of IV dexamethasone on 04/02. PLAN: Plan Chronic conditions * CHRISTIANA: Continue [...] patient. Patient wishes to be full code. DC home with [facility]. Waiting on urinalysis Charges/Coding Visit Charges Inpatient E&M: 54737 Subs Hosp L2 NIHSS NIHSS Nursing Documentation NIHSS Nursing Documentation: NIHSS: Ischemic Stroke/TIA Start: 04/01/25 19:46 Text: For ICU Patients: NIH sroke scale at Status: Complete presentation and every 2 hours or with change in RN caregiver Freq: [id number] Protocol: Activity Type Activity Date Activity User E-sign Co-sign Detail Recorded Client Recorded Date Recorded By Document 04/01/25 19:50 KW [id number] 04/01/25 19:59 KW 04/01/25 19:50 NIH Stroke Scale [NIHSS] A score of 0 is normal or asymptomatic . Total possible score is 42. Inpatient: RN or Physician to activate a stroke alert for onset of new stroke symptoms or with NIHSS increase >/= 3 points. Following change in neurological status, NIHSS will be performed per physician order or more frequently PRN. -1a. Level of Consciousness 0 - Alert; keenly responsive -1b. LOC Questions 0 - Answers BOTH questions correctly -1c. LOC Commands 0 - Performs BOTH tasks correctly -2. Best Gaze 0 - Normal -4. Facial Palsy 0 - Normal symmetrical movements -5a. Left Arm 0 - No drift; arm holds 90 ( or 45) degrees for full 10 seconds -5b. Right Arm 0 - No drift; arm holds 90 ( or 45) degrees for full 10 seconds -6a. Left Leg 0 - No drift; leg holds 30- degree position for full 5 seconds -6b. Right Leg 0 - No drift; leg holds 30- degree position for full 5 seconds -7. Limb Ataxia 0 - Absent -8. Sensory 0 - Normal; no sensory loss -9. Best Language 0 - No aphasia; normal -10. Dysarthria 0 - Normal -11. Extinction and Inattention 0 - No abnormality -Total 0 Query Text:A score of 0 is normal or asymptomatic. Total possible score is 42 . ED: Notify Physician for NIHSS increase by > / = 3 points. Inpatient: RN or Physician to activate a stroke alert for NIHSS increase of > / = 3 points. Coma Scale [Assess] -Eye Opening Spontaneous -Motor Obeys Commands -Verbal Oriented [Total] -Coma Scale Total 15 04/05/25 1436 Cosigner Signature (if applicable): CC: ~ Signed [facility]07-14-2025 Progress note Author Andrade Tapia [facility] Note Date/Time April 04, 2025 2:47 pm [facility] Medical Records Department [address] [place] [address] Progress Note - Hospitalist 04/04/25 0809 MR#: [id number] Acct: [id number] Name: LISA UP Rep #:[id number] : 1945 79 From: Andrade Tapia DO PCP: Dr. Sylvia Lizama MD Status:ADM I N Location: [place] [address] Reason for Visit Chief Complaint: Vertigo and diplopia. Subjective Subjective Headache off and on. But overall improved. Improved dizziness overall. Had some intense pain in her right neck and felt like there was a lump in her neck on the right side. Has since resolved. Objective Data Objective Data Vital Signs: Vital Signs Temp Pulse Resp BP Pulse Ox O2 Del Method 36.4 C L 57 L 16 139/52 H 98 Room Air 04/04/25 03:35 04/04/25 03:35 04/04/25 03:35 04/04/25 03:35 04/04/25 03:35 04/04/25 03:35 Oxygen Delivery Method Room Air Weight: 110.223 kg Body Mass Index (BMI) 44.4 Intake & Output: Intake and Output for Last 24 Hours 04/02/25 04/03/25 04/04/25 23:59 23:59 23:59 Intake Total 775 / 895 1010 / 1010 200 / 200 Output Total 600 / 1000 1650 / 1650 250 / 250 Balance 175 / -105 -640 / -640 -50 / -50 Lab / Micro Data 04/01/25 14:25 04/01/25 14:25 Physical Exam Const alert and no apparent distress Constitutional Narrative: Up in chair. Nontoxic. Neck Neck Narrative: No lymphadenopathy. The right sternocleidomastoid palpates more taut than the left. Resp normal respiratory effort and no retractions Cardio regular rate, regular rhythm, S1 normal heart sound and S2 normal heart sound GI normal to inspection, nondistended, normoactive bowel sounds, soft to palpation,non-tender and non-distended Extremity normal to inspection and full ROM Neuro Sensorium / Orientation: awake and alert Assessment & Plan Assessment/Plan (1) Vertigo: PLAN: Ongoing but improved. Suspect this may be a more profound case of BPPV. No obvious effusions noted on otoscopic exam. Though this may be different thanprevious presentations of vertigo, this may very well be BPPV. MRI brain negative. Continue with as needed meclizine. PT OT evaluate and treat. (2) Migraine headache: PLAN: Improved after 10mg of IV dexamethasone on 04/02. PLAN: Plan Chronic conditions * CHRISTIANA: Continue [...] patient. Patient wishes to be full code. DC home with [facility]. NIHSS NIHSS Nursing Documentation NIHSS Nursing Documentation: NIHSS: Ischemic Stroke/TIA Start: 04/01/25 19:46 Text: For ICU Patients: NIH sroke scale at Status: Complete presentation and every 2 hours or with change in RN caregiver Freq: [id number] Protocol: Activity Type Activity Date Activity User E-sign Co-sign Detail Recorded Client Recorded Date Recorded By Document 04/01/25 19:50 KW [id number] 04/01/25 19:59 04/01/25 19:50 NIH Stroke Scale [NIHSS] A score of 0 is normal or asymptomatic . Total possible score is 42. Inpatient: RN or Physician to activate a stroke alert for onset of new stroke symptoms or with NIHSS increase >/= 3 points. Following change in neurological status, NIHSS will be performed per physician order or more frequently PRN. -1a. Level of Consciousness 0 - Alert; keenly responsive -1b. LOC Questions 0 - Answers BOTH questions correctly -1c. LOC Commands 0 - Performs BOTH tasks correctly -2. Best Gaze 0 - Normal -4. Facial Palsy 0 - Normal symmetrical movements -5a. Left Arm 0 - No drift; arm holds 90 ( or 45) degrees for full 10 seconds -5b. Right Arm 0 - No drift; arm holds 90 ( or 45) degrees for full 10 seconds -6a. Left Leg 0 - No drift; leg holds 30- degree position for full 5 seconds -6b. Right Leg 0 - No drift; leg holds 30- degree position for full 5 seconds -7. Limb Ataxia 0 - Absent -8. Sensory 0 - Normal; no sensory loss -9. Best Language 0 - No aphasia; normal -10. Dysarthria 0 - Normal -11. Extinction and Inattention 0 - No abnormality -Total 0 Query Text:A score of 0 is normal or asymptomatic. Total possible score is 42 . ED: Notify Physician for NIHSS increase by > / = 3 points. Inpatient: RN or Physician to activate a stroke alert for NIHSS increase of > / = 3 points. Coma Scale [Assess] -Eye Opening Spontaneous -Motor Obeys Commands -Verbal Oriented [Total] -Coma Scale Total 15 04/04/25 1145 <Electronically signed by Andrade Tapia DO> Cosigner Signature (if applicable): CC: ~ Signed ADDENDUM by Dr. Andrade Tapia DO on 04/04/25 at 1447 Addendum Blood pressure low with low maps. Concerned that this may be worsening her dizziness as patient does feel worse now. Blood pressure is 90/43. Patient has clonidine, hydralazine, losartan and carvedilol ordered. Will discontinue hydralazine and clonidine. Decrease losartan from 100-50 daily and will continue with carvedilol 25 twice daily for now. Reevaluate in the morning to see if she is feeling better if she may be ready to be discharged tomorrow. 04/04/25 1446<Electronically signed by Andrade Tapia DO> Cosigner Signature (if applicable): cc: ~* Signed ADDENDUM by Dr. Andrade Tapia DO on 04/04/25 at 1447 Visit Charges Inpatient E&M: 87644 Subs Hosp L2 04/04/25 1447<Electronically signed by Andrade Tapia DO> Cosigner Signature (if applicable): cc: ~* Signed [facility] Work Phone: 1(378) 878-632507-14-2025 Progress note [facility] Medical Records Department [address] [place] [address] Progress Note - Hospitalist 04/04/25808 MR#: [id number] Acct: [id number] Name: LISA UP Rep #:[id number] : 1945 79 From: Andrade Tapia DO PCP: Dr. Sylvia Lizama MD Status:ADM I N Location: [place] [address] Reason for Visit Chief Complaint: Vertigo and diplopia. Subjective Subjective Headache off and on. But overall improved. Improved dizziness overall. Had some intense pain in herright neck and felt like there was a lump in her neck on the right side. Has since resolved. Objective Data Objective Data Vital Signs: Vital Signs Temp Pulse Resp BP Pulse Ox O2 Del Method 36.4 C L 57 L 16 139/52 H 98 Room Air 04/04/25 03:35 04/04/25 03:35 04/04/25 03:35 04/04/25 03:35 04/04/25 03:35 04/04/25 03:35 Oxygen Delivery Method Room Air Weight: 110.223 kg Body Mass Index (BMI) 44.4 Intake & Output: Intake and Output for Last 24 Hours 04/02/25 04/03/25 04/04/25 23:59 23:59 23:59 Intake Total 775 / 895 1010 / 1010 200 / 200 Output Total 600 / 1000 1650 / 1650 250 / 250 Balance 175 / -105 -640 / -640 -50 / -50 Lab / Micro Data 04/01/25 14:25 04/01/25 14:25 Physical Exam Const alert and no apparent distress Constitutional Narrative: Up in chair. Nontoxic. Neck Neck Narrative: No lymphadenopathy. The right sternocleidomastoid palpates more taut than the left. Resp normal respiratory effort and no retractions Cardio regular rate, regular rhythm, S1 normal heart sound and S2 normal heart sound GI normal to inspection, nondistended, normoactive bowel sounds, soft to palpation,non-tender and non-distended Extremity normal to inspection and full ROM Neuro Sensorium / Orientation: awake and alert Assessment & Plan Assessment/Plan (1) Vertigo: PLAN: Ongoing but improved. Suspect this may be a more profound case of BPPV. No obvious effusions noted on otoscopic exam. Though this may be different thanprevious presentations of vertigo, this may very well be BPPV. MRI brain negative. Continue with as needed meclizine. PT OT evaluate and treat. (2) Migraine headache: PLAN: Improved after 10mg of IV dexamethasone on 04/02. PLAN: Plan Chronic conditions * CHRISTIANA: Continue [...] patient. Patient wishes to be full code. DC home with [facility]. NIHSS NIHSS Nursing Documentation NIHSS Nursing Documentation: NIHSS: Ischemic Stroke/TIA Start: 04/01/25 19:46 Text: For ICU Patients: NIH sroke scale at Status: Complete presentation and every 2 hours or with change in RN caregiver Freq: [id number] Protocol: Activity Type Activity Date Activity User E-sign Co-sign Detail Recorded Client Recorded Date Recorded By Document 04/01/25 19:50 KW [id number] 04/01/25 19:59 KW 04/01/25 19:50 NIH Stroke Scale [NIHSS] A score of 0 is normal or asymptomatic . Total possible score is 42. Inpatient: RN or Physician to activate a stroke alert for onset of new stroke symptoms or with NIHSS increase >/= 3 points. Following change in neurological status, NIHSS will be performed per physician order or more frequently PRN. -1a. Level of Consciousness 0 - Alert; keenly responsive -1b. LOC Questions 0 - Answers BOTH questions correctly -1c. LOC Commands 0 - Performs BOTH tasks correctly -2. Best Gaze 0 - Normal -4. Facial Palsy 0 - Normal symmetrical movements -5a. Left Arm 0 - No drift; arm holds 90 ( or 45) degrees for full 10 seconds -5b. Right Arm 0 - No drift; arm holds 90 ( or 45) degrees for full 10 seconds -6a. Left Leg 0 - No drift; leg holds 30- degree position for full 5 seconds -6b. Right Leg 0 - No drift; leg holds 30- degree position for full 5 seconds -7. Limb Ataxia 0 - Absent -8. Sensory 0 - Normal; no sensory loss -9. Best Language 0 - No aphasia; normal -10. Dysarthria 0 - Normal -11. Extinction and Inattention 0 - No abnormality -Total 0 Query Text:A score of 0 is normal or asymptomatic. Total possible score is 42 . ED: Notify Physician for NIHSS increase by > / = 3 points. Inpatient: RN or Physician to activate a stroke alert for NIHSS increase of > / = 3 points. Coma Scale [Assess] -Eye Opening Spontaneous -Motor Obeys Commands -Verbal Oriented [Total] -Coma Scale Total 15 04/04/25 1145 Cosigner Signature (if applicable): CC: ~ Signed ADDENDUM by Dr. Andrade Tapia DO on 04/04/25 at 1447 Addendum Blood pressure low with low maps. Concerned that this may be worsening her dizziness as patient does feel worse now. Blood pressure is 90/43. Patient has clonidine, hydralazine, losartan and carvedilol ordered. Will discontinue hydralazine and clonidine. Decrease losartan from 100-50 daily and willcontinue with carvedilol 25 twice daily for now. Reevaluate in the morning to see if she is feelingbetter if she may be ready to be discharged tomorrow. 04/04/25 1446 Cosigner Signature (if applicable): cc: ~* Signed ADDENDUM by Dr. Andrade Tapia DO on 04/04/25 at 1447 Visit Charges Inpatient E&M: 56877 Subs Hosp L2 04/04/25 1447 Cosigner Signature (if applicable): cc: ~* Signed [facility]07-14-2025 Discharge summary Author Andrade Tapia [facility] Note Date/Time April 04, 2025 12:3 7pm [facility] Medical Records Department [address] [place] [address] Discharge Summary 04/04/25 1145 MR#: [id number] Acct: [id number] Name: LISA UP Rep #:[id number] : 1945 79 From: Andrade Tapia DO PCP: Dr. Sylvia Lizama MD Status:ADM I N Location: [place] [address] Providers Date of Admission: 04/01/25 Primary Care Physician: Dr. Sylvia Lizama MD Reason For Visit: VERTIGO DIPLOPIA Diagnosis Discharge Diagnosis (1) Vertigo: Status: Acute Code(s): R42 - Dizziness and giddiness Plan: Ongoing but improved. Suspect this may be a more profound case of BPPV. No obvious effusions noted on otoscopic exam. Though this may be different than previous presentations of vertigo, this may very well be BPPV. MRI brain negative. Continue with as needed meclizine. PT OT evaluate and treat. (2) Migraine headache: Status: Chronic Code(s): G43.909 - Migraine, unspecified, not intractable, without status migrainosus Plan: Improved after 10mg of IV dexamethasone on 04/02. Plan Chronic conditions * CHRISTIANA: Continue CPAP [...] patient. Patient wishes to be full code. DC home with [facility]. Medications at Discharge Home Medications potassium chloride [...] gabapentin 400 mg capsule 400 mg PO BID nerve pain 03/24/24 hydralazine 50 mg tablet 50 mg PO BID blood pressure 03/24/24 clonidine HCl 0.1 mg tablet 0.1 mg PO BID bp 30 days #60 tabs 03/26/24 losartan 100 mg tablet 100 mg PO DAILY bp 07/04/24 meclizine 25 mg tablet 25 mg PO TID PRN dizziness 07/04/24 omeprazole 20 mg capsule,delayed release 20 mg PO DAILY PRN acid reflux 07/04/24 albuterol sulfate 90 mcg/actuation aerosol inhaler (Ventolin HFA) 2 puff inhalation Q4H PRN Wheezing 11/26/24 acetaminophen 325 mg tablet 1,000 mg (3.0769 x 325 mg) PO Q8H PRN PRN Pain 1-10 Or Fever>100.7 #0 tabs 04/04/25 Hospital Course Operations None Procedures None Weight / BMI Weight Weight: 110.223 kg Body Mass Index (BMI) 44.4 ABG / Lab / Microbiology Data 04/01/25 14:25 04/01/25 14:25 D/C Instructions DC O2, CPAP, BIPAP Needs Home O2 Discharge instructions: No Meaningful Use Info Meaningful Use Meaningful Use Diagnoses (Choose all that apply): None applicable Discharge Plan Admission Admit Date/Time: 04/01/25 17:35 Primary Reason for Your Visit: Vertigo Attending Provider: Andrade Tapia Primary Care Provider: Sylvia Lizama Discharge Orders/Prescriptions Prescriptions: New acetaminophen 325 mg Tablet 1,000 mg PO Q8H PRN PRN (Reason: Pain 1-10 Or Fever>100.7) Qty: 0 0RF Continued potassium chloride 10 MEQ tablet 10 meq PO BID multivitamin with folic acid [Thera] 1 TABLET tablet 1 tab PO DAILY apixaban 5 MG tablet 5 mg PO BID levothyroxine 75 mcg Tablet 75 mcg PO DAILY carvedilol 25 mg tablet 25 mg PO BID gabapentin 400 mg capsule 400 mg PO BID hydralazine 50 mg tablet 50 mg PO [...] 25 mg tablet 25 mg PO TID PRN (Reason: dizziness) Patient Comments: PT STATES SHE SHOULD TAKE THIS BUT DOESN'T, ONLY IF SHE IS DIZZY. losartan 100 mg tablet 100 mg PO DAILY Discontinued paroxetine HCl 10 mg tablet 10 mg PO DAILY Referrals / Follow Up: Sylvia Lizama MD [Primary Care Provider] - Within 2 Weeks Disposition Disposition (needs filled in before D/C Order can be placed): Home Health Service Charges/Coding Visit Charges Inpatient E&M: 05196 Disch Hosp 04/04/25 1153 <Electronically signed by Andrade Tapia DO> Cosigner Signature (if applicable): CC: Dr. Andrade Tapia DO; Dr. Sylvia Lizama MD~ Signed ADDENDUM by Dr. Andrade Tapia DO on 04/04/25 at 1237 Addendum Unknown laterality of BPPV. 04/04/25 1237<Electronically signed by Andrade Tapia DO> Cosigner Signature (if applicable): cc: Dr. Andrade Tapia DO; Dr. Sylvia Lizama MD ~* Signed [facility] Work Phone: 1(871) 889-290307-14-2025 Discharge summary [facility] Medical Records Department [address] [place] [address] Discharge Summary 04/04/25 1145 MR#: [id number] Acct: [id number] Name: LISA UP Rep #:[id number] : 1945 79 From: Andrade Tapia DO PCP: Dr. Sylvia Lizama MD Status:ADM I N Location: [place] [address] Providers Date of Admission: 04/01/25 Primary Care Physician: Dr. Sylvia Lizama MD Reason For Visit: VERTIGO DIPLOPIA Diagnosis Discharge Diagnosis (1) Vertigo: Status: Acute Code(s): R42 - Dizziness and giddiness Plan: Ongoing but improved. Suspect this may be a more profound case of BPPV. No obvious effusions noted on otoscopic exam. Though this may be different than previous presentations of vertigo, this may very well be BPPV. MRI brain negative. Continue with as needed meclizine. PT OT evaluate and treat. (2) Migraine headache: Status: Chronic Code(s): G43.909 - Migraine, unspecified, not intractable, without status migrainosus Plan: Improved after 10mg of IV dexamethasone on 04/02. Plan Chronic conditions * CHRISTIANA: Continue CPAP [...] patient. Patient wishes to be full code. DC home with [facility]. Medications at Discharge Home Medications potassium chloride [...] gabapentin 400 mg capsule 400 mg PO BID nerve pain 03/24/24 hydralazine 50 mg tablet 50 mg PO BID blood pressure 03/24/24 clonidine HCl 0.1 mg tablet 0.1 mg PO BID bp 30 days #60 tabs 03/26/24 losartan 100 mg tablet 100 mg PO DAILY bp 07/04/24 meclizine 25 mg tablet 25 mg PO TID PRN dizziness 07/04/24 omeprazole 20 mg capsule,delayed release 20 mg PO DAILY PRN acid reflux 07/04/24 albuterol sulfate 90 mcg/actuation aerosol inhaler (Ventolin HFA) 2 puff inhalation Q4H PRN Wheezing 11/26/24 acetaminophen 325 mg tablet 1,000 mg (3.0769 x 325 mg) PO Q8H PRN PRN Pain 1-10 Or Fever>100.7 #0 tabs 04/04/25 Hospital Course Operations None Procedures None Weight / BMI Weight Weight: 110.223 kg Body Mass Index (BMI) 44.4 ABG / Lab / Microbiology Data 04/01/25 14:25 04/01/25 14:25 D/C Instructions DC O2, CPAP, BIPAP Needs Home O2 Discharge instructions: No Meaningful Use Info Meaningful Use Meaningful Use Diagnoses (Choose all that apply): None applicable Discharge Plan Admission Admit Date/Time: 04/01/25 17:35 Primary Reason for Your Visit: Vertigo Attending Provider: Andrade Tapia Primary Care Provider: Sylvia Lizama Discharge Orders/Prescriptions Prescriptions: New acetaminophen 325 mg Tablet 1,000 mg PO Q8H PRN PRN (Reason: Pain 1-10 Or Fever>100.7) Qty: 0 0RF Continued potassium chloride 10 MEQ tablet 10 meq PO BID multivitamin with folic acid [Thera] 1 TABLET tablet 1 tab PO DAILY apixaban 5 MG tablet 5 mg PO BID levothyroxine 75 mcg Tablet 75 mcg PO DAILY carvedilol 25 mg tablet 25 mg PO BID gabapentin 400 mg capsule 400 mg PO BID hydralazine 50 mg tablet 50 mg PO [...] 25 mg tablet 25 mg PO TID PRN (Reason: dizziness) Patient Comments: PT STATES SHE SHOULD TAKE THIS BUT DOESN'T, ONLY IF SHE IS DIZZY. losartan 100 mg tablet 100 mg PO DAILY Discontinued paroxetine HCl 10 mg tablet 10 mg PO DAILY Referrals / Follow Up: Sylvia Lizama MD [Primary Care Provider] - Within 2 Weeks Disposition Disposition (needs filled in before D/C Order can be placed): Home Health Service Charges/Coding Visit Charges Inpatient E&M: 70470 Disch Hosp 04/04/25 1152 Cosigner Signature (if applicable): CC: Dr. Andrade Tapia DO; Dr. Sylvia Lizama MD~ Signed ADDENDUM by Dr. Andrade Tapia DO on 04/04/25 at 1237 Addendum Unknown laterality of BPPV. 04/04/25 1237 Cosigner Signature (if applicable): cc: Dr. Andrade Tapia DO; Dr. Sylvia Lizama MD ~* Signed [facility]07-14-2025 [facility] Medical Records Department [address] [place] [address] Discharge Summary 04/04/25 1145 MR#: [id number] Acct: [id number] Name: LISA UP Rep #: [id number] : 1945 79 From: Andrade Tapia DO PCP: Dr. Sylvia Lizama MD Status:ADM IN Location: [place] [address] Providers Date of Admission: 04/01/25 Primary Care Physician: Dr. Sylvia Lizama MD Reason For Visit: VERTIGO DIPLOPIA Diagnosis Discharge Diagnosis (1) Vertigo: Status: Acute Code(s): R42 - Dizziness and giddiness Plan: Ongoing but improved. Suspect this may be a more profound case of BPPV. No obvious effusions noted on otoscopic exam. Though this may be different than previous presentations of vertigo, this may very well be BPPV. MRI brain negative. Continue with as needed meclizine. PT OT evaluate and treat. (2) Migraine headache: Status: Chronic Code(s): G43.909 - Migraine, unspecified, not intractable, without status migrainosus Plan: Improved after 10mg of IV dexamethasone on 04/02. Plan Chronic conditions * CHRISTIANA: Continue CPAP [...] patient. Patient wishes to be full code. DC home with [facility]. Medications at Discharge Home Medications potassium chloride [...] gabapentin 400 mg capsule 400 mg PO BID nerve pain 03/24/24 hydralazine 50 mg tablet 50 mg PO BID blood pressure 03/24/24 clonidine HCl 0.1 mg tablet 0.1 mg PO BID bp 30 days #60 tabs 03/26/24 losartan 100 mg tablet 100 mg PO DAILY bp 07/04/24 meclizine 25 mg tablet 25 mg PO TID PRN dizziness 07/04/24 omeprazole 20 mg capsule,delayed release 20 mg PO DAILY PRN acid reflux 07/04/24 albuterol sulfate 90 mcg/actuation aerosol inhaler (Ventolin HFA) 2 puff inhalation Q4H PRN Wheezing 11/26/24 acetaminophen 325 mg tablet 1,000 mg (3.0769 x 325 mg) PO Q8H PRN PRN Pain 1-10 Or Fever>100.7 #0 tabs 04/04/25 Hospital Course Operations None Procedures None Weight / BMI Weight Weight: 110.223 kg Body Mass Index (BMI) 44.4 ABG / Lab / Microbiology Data 04/01/25 14:25 04/01/25 14:25 D/C Instructions DC O2, CPAP, BIPAP Needs Home O2 Discharge instructions: No Meaningful Use Info Meaningful Use Meaningful Use Diagnoses (Choose all that apply): None applicable Discharge Plan Admission Admit Date/Time: 04/01/25 17:35 Primary Reason for Your Visit: Vertigo Attending Provider: Andrade Tapia Primary Care Provider: Sylvia Lizama Discharge Orders/Prescriptions Prescriptions: New acetaminophen 325 mg Tablet 1,000 mg PO Q8H PRN PRN (Reason: Pain 1-10 Or Fever>100.7) Qty: 0 0RF Continued potassium chloride 10 MEQ tablet 10 meq PO BID multivitamin with folic acid [Thera] 1 TABLET tablet 1 tab PO DAILY apixaban 5 MG tablet 5 mg PO BID levothyroxine 75 mcg Tablet 75 mcg PO DAILY carvedilol 25 mg tablet 25 mg PO BID gabapentin 400 mg capsule 400 mg PO BID hydralazine 50 mg tablet 50 mg PO [...] 25 mg tablet 25 mg PO TID PRN (Reason: dizziness) Patient Comments: PT STATES SHE SHOULD TAKE THIS BUT DOESN'T, ONLY IF SHE IS DIZZY. losartan 100 mg tablet 100 mg PO DAILY Discontinued paroxetine HCl 10 mg tablet 10 mg PO DAILY Referrals / Follow Up: Sylvia Lizama MD [Primary Care Provider] - Within 2 Weeks Disposition Disposition (needs filled in before D/C Order can be placed): Home Health Service Charges/Coding Visit Charges Inpatient E M: 97993 Disch Hosp 04/04/25 1153 Cosigner Signature (if applicable): CC: Dr. Andrade Tapia DO; Dr. Sylvia Lizama MD Signed ADDENDUM by Dr. Andrade Tapia DO on 04/04/25 at 1237 Addendum Unknown laterality of BPPV. 04/04/25 1237 Cosigner Signature (if applicable): (more content not included)...[facility]07-13-2025 Progress note Author Andrade Tapia [facility] Note Date/Time April 03, 2025 12:2 0pm [facility] Medical Records Department [address] [place] [address] Progress Note - Hospitalist 04/03/25 0745 MR#: [id number] Acct: [id number] Name: LISA UP Rep #:[id number] : 1945 79 From: Andrade Tapia DO PCP: Dr. Sylvia Lizama MD Status:ADM I N Location: [place] [address] Reason for Visit Reason for Visit: Diagnoses Dizziness and giddiness (04/01/25) Subjective Subjective Was able to work with therapy today and was able to walk out to the hallway and back. Did not have dizziness but feels like her dizziness is coming back. Headache overall is better as well as diffuse muscle aches. Objective Data Objective Data Vital Signs: Vital Signs Temp Pulse Resp BP Pulse Ox O2 Del Method 36.9 C 69 16 145/66 H 95 Room Air 04/03/25 03:15 04/03/25 03:15 04/03/25 03:15 04/03/25 03:15 04/03/25 03:15 04/03/25 03:15 Oxygen Delivery Method Room Air Weight: 110.223 kg Body Mass Index (BMI) 44.4 Intake & Output: Intake and Output for Last 24 Hours 04/01/25 04/02/25 04/03/25 23:59 23:59 23:59 Intake Total 775 / 895 120 / 120 Output Total 600 / 1000 750 / 750 Balance 175 / -105 -630 / -630 Lab / Micro Data 04/01/25 14:25 04/01/25 14:25 Radiography Diagnostic Testing: Radiology Impression Echocardiogram 04/01/25 17:40 Interpretation Summary The LV ejection fraction is 70 %. Left ventricular systolic function is hyperdynamic. Ordering Physician: Andrade Tapia Performed By: Lauren Villafana RDCS Physical Exam Const alert and no apparent distress HEENT head/scalp atraumatic and moist oral mucous membranes HEENT Narrative: Right lateral nystagmus that fatigues after about 2-3 beats. Resp normal respiratory effort, no retractions, no use of accessory muscles and clearto auscultation bilaterally Cardio regular rate, regular rhythm, S1 normal heart sound and S2 normal heart sound GI normal to inspection, nondistended, normoactive bowel sounds and soft to palpation Extremity normal to inspection Assessment & Plan Assessment/Plan (1) Vertigo: PLAN: Ongoing but improved. Suspect this may be a more profound case of BPPV. No obvious effusions noted on otoscopic exam. Though this may be different thanprevious presentations of vertigo, this may very well be BPPV. MRI brain negative. Continue with as needed meclizine. PT OT evaluate and treat. (2) Migraine headache: PLAN: Improved after 10mg of IV dexamethasone on 04/02. PLAN: Plan Chronic conditions * CHRISTIANA: Continue [...] patient. Patient wishes to be full code. Discussed with the patient's son at bedside. Charges/Coding Visit Charges Inpatient E&M: 06691 Subs Hosp L2 NIHSS NIHSS Nursing Documentation NIHSS Nursing Documentation: NIHSS: Ischemic Stroke/TIA Start: 04/01/25 19:46 Text: For ICU Patients: NIH sroke scale at Status: Complete presentation and every 2 hours or with change in RN caregiver Freq: [id number] Protocol: Activity Type Activity Date Activity User E-sign Co-sign Detail Recorded Client Recorded Date Recorded By Document 04/01/25 19:50 KW [id number] 04/01/25 19:59 KW 04/01/25 19:50 NIH Stroke Scale [NIHSS] A score of 0 is normal or asymptomatic . Total possible score is 42. Inpatient: RN or Physician to activate a stroke alert for onset of new stroke symptoms or with NIHSS increase >/= 3 points. Following change in neurological status, NIHSS will be performed per physician order or more frequently PRN. -1a. Level of Consciousness 0 - Alert; keenly responsive -1b. LOC Questions 0 - Answers BOTH questions correctly -1c. LOC Commands 0 - Performs BOTH tasks correctly -2. Best Gaze 0 - Normal -4. Facial Palsy 0 - Normal symmetrical movements -5a. Left Arm 0 - No drift; arm holds 90 ( or 45) degrees for full 10 seconds -5b. Right Arm 0 - No drift; arm holds 90 ( or 45) degrees for full 10 seconds -6a. Left Leg 0 - No drift; leg holds 30- degree position for full 5 seconds -6b. Right Leg 0 - No drift; leg holds 30- degree position for full 5 seconds -7. Limb Ataxia 0 - Absent -8. Sensory 0 - Normal; no sensory loss -9. Best Language 0 - No aphasia; normal -10. Dysarthria 0 - Normal -11. Extinction and Inattention 0 - No abnormality -Total 0 Query Text:A score of 0 is normal or asymptomatic. Total possible score is 42 . ED: Notify Physician for NIHSS increase by > / = 3 points. Inpatient: RN or Physician to activate a stroke alert for NIHSS increase of > / = 3 points. Coma Scale [Assess] -Eye Opening Spontaneous -Motor Obeys Commands -Verbal Oriented [Total] -Coma Scale Total 04/03/25 1220 <Electronically signed by Andrade Tapia DO> Cosigner Signature (if applicable): CC: ~ Signed [facility] Work Phone: 1(177) 703-408307-13-2025 Progress note [facility] Medical Records Department [address] [place] [address] Progress Note - Hospitalist 04/03/25 0745 MR#: [id number] Acct: [id number] Name: LISA UP Rep #:[id number] : 1945 79 From: Andrade Tapia DO PCP: Dr. Sylvia Lizama MD Status:ADM I N Location: [place] [address] Reason for Visit Reason for Visit: Diagnoses Dizziness and giddiness (04/01/25) Subjective Subjective Was able to work with therapy today and was able to walk out to the hallway and back. Did not have dizziness but feels like her dizziness is coming back. Headache overall is better as well as diffusemuscle aches. Objective Data Objective Data Vital Signs: Vital Signs Temp Pulse Resp BP Pulse Ox O2 Del Method 36.9 C 69 16 145/66 H 95 Room Air 04/03/25 03:15 04/03/25 03:15 04/03/25 03:15 04/03/25 03:15 04/03/25 03:15 04/03/25 03:15 Oxygen Delivery Method Room Air Weight: 110.223 kg Body Mass Index (BMI) 44.4 Intake & Output: Intake and Output for Last 24 Hours 04/01/25 04/02/25 04/03/25 23:59 23:59 23:59 Intake Total 775 / 895 120 / 120 Output Total 600 / 1000 750 / 750 Balance 175 / -105 -630 / -630 Lab / Micro Data 04/01/25 14:25 04/01/25 14:25 Radiography Diagnostic Testing: Radiology Impression Echocardiogram 04/01/25 17:40 Interpretation Summary The LV ejection fraction is 70 %. Left ventricular systolic function is hyperdynamic. Ordering Physician: Andrade Tapia Performed By: Lauren Villafana RDCS Physical Exam Const alert and no apparent distress HEENT head/scalp atraumatic and moist oral mucous membranes HEENT Narrative: Right lateral nystagmus that fatigues after about 2-3 beats. Resp normal respiratory effort, no retractions, no use of accessory muscles and clearto auscultation bilaterally Cardio regular rate, regular rhythm, S1 normal heart sound and S2 normal heart sound GI normal to inspection, nondistended, normoactive bowel sounds and soft to palpation Extremity normal to inspection Assessment & Plan Assessment/Plan (1) Vertigo: PLAN: Ongoing but improved. Suspect this may be a more profound case of BPPV. No obvious effusions noted on otoscopic exam. Though this may be different thanprevious presentations of vertigo, this may very well be BPPV. MRI brain negative. Continue with as needed meclizine. PT OT evaluate and treat. (2) Migraine headache: PLAN: Improved after 10mg of IV dexamethasone on 04/02. PLAN: Plan Chronic conditions * CHRISTIANA: Continue [...] patient. Patient wishes to be full code. Discussed with the patient's son at bedside. Charges/Coding Visit Charges Inpatient E&M: 26428 Subs Hosp L2 NIHSS NIHSS Nursing Documentation NIHSS Nursing Documentation: NIHSS: Ischemic Stroke/TIA Start: 04/01/25 19:46 Text: For ICU Patients: NIH sroke scale at Status: Complete presentation and every 2 hours or with change in RN caregiver Freq: [id number] Protocol: Activity Type Activity Date Activity User E-sign Co-sign Detail Recorded Client Recorded Date Recorded By Document 04/01/25 19:50 KW [id number] 04/01/25 19:59 KW 04/01/25 19:50 NIH Stroke Scale [NIHSS] A score of 0 is normal or asymptomatic . Total possible score is 42. Inpatient: RN or Physician to activate a stroke alert for onset of new stroke symptoms or with NIHSS increase >/= 3 points. Following change in neurological status, NIHSS will be performed per physician order or more frequently PRN. -1a. Level of Consciousness 0 - Alert; keenly responsive -1b. LOC Questions 0 - Answers BOTH questions correctly -1c. LOC Commands 0 - Performs BOTH tasks correctly -2. Best Gaze 0 - Normal -4. Facial Palsy 0 - Normal symmetrical movements -5a. Left Arm 0 - No drift; arm holds 90 ( or 45) degrees for full 10 seconds -5b. Right Arm 0 - No drift; arm holds 90 ( or 45) degrees for full 10 seconds -6a. Left Leg 0 - No drift; leg holds 30- degree position for full 5 seconds -6b. Right Leg 0 - No drift; leg holds 30- degree position for full 5 seconds -7. Limb Ataxia 0 - Absent -8. Sensory 0 - Normal; no sensory loss -9. Best Language 0 - No aphasia; normal -10. Dysarthria 0 - Normal -11. Extinction and Inattention 0 - No abnormality -Total 0 Query Text:A score of 0 is normal or asymptomatic. Total possible score is 42 . ED: Notify Physician for NIHSS increase by > / = 3 points. Inpatient: RN or Physician to activate a stroke alert for NIHSS increase of > / = 3 points. Coma Scale [Assess] -Eye Opening Spontaneous -Motor Obeys Commands -Verbal Oriented [Total] -Coma Scale Total 15 04/03/25 1220 Cosigner Signature (if applicable): CC: ~ Signed [facility]07-12-2025 Progress note Author Andrade Tapia [facility] Note Date/Time April 02, 2025 2:36 pm [facility] Medical Records Department [address] [place] [address] Progress Note - Hospitalist 04/02/25 0748 MR#: [id number] Acct: [id number] Name: LISA UP Rep #:[id number] : 1945 79 From: Andrade Tapia DO PCP: Dr. Sylvia Lizama MD Status:ADM I N Location: [place] [address] Reason for Visit Reason for Visit: Diagnoses Dizziness and giddiness (04/01/25) Subjective Subjective Still with dizziness. Objective Data Objective Data Vital Signs: Vital Signs Temp Pulse Resp BP Pulse Ox O2 Del Method 36.9 C 60 18 109/50 L 95 Room Air 04/02/25 05:18 04/02/25 05:18 04/02/25 05:18 04/02/25 05:18 04/02/25 05:18 04/02/25 05:18 Oxygen Delivery Method Room Air Weight: 110.223 kg Body Mass Index (BMI) 44.4 Intake & Output: Intake and Output for Last 24 Hours 03/31/25 04/01/25 04/02/25 23:59 23:59 23:59 Output Total 600 / 600 Balance -600 / -600 Lab / Micro Data 04/01/25 14:25 04/01/25 14:25 Labs: Laboratory Results - last 24 hr 04/01/25 14:25: WBC 6.0, RBC 4.25, Hgb 13.4, Hct 41.1, MCV 96.7, MCH 31.5, MCHC 32.6, RDW Std Deviation 44.5 H, RDW Coeff of Medhat 12.5, Plt Count 147 L, MPV 10.1, Immature Gran % (Auto) 0.200, Neut % (Auto) 62.6, Lymph % (Auto) 23.5, Garland % (Auto) 9.6, Eos % (Auto) 3.9, [...] D 04/01/25 14:50: POC Glucose 109 H 04/01/25 17:15: Troponin T Hi Sens 2 Hr 11 04/02/25 01:13: POC Glucose 146 H 04/02/25 06:13: Triglycerides 162, Cholesterol 176, LDL Cholesterol, Calc 109, VLDL Cholesterol 32, HDL Cholesterol 34 L, Cholesterol/HDL Ratio 5.13 Radiography Diagnostic Testing: Radiology Impression Head/Neck CTA 04/01/25 15:00 IMPRESSION: 1. Widely patent intracranial and cervical arterial vasculature. 2. No evidence of acute intracranial pathology. 3. Mild volume loss and chronic microangiopathic changes. Reading Location: [facility] Brain MRI 04/01/25 17:40 IMPRESSION: No acute intracranial abnormality. Reading Location: [place] [address] Physical Exam Const alert and no apparent distress HEENT head/scalp atraumatic and moist oral mucous membranes Cardio regular rate, regular rhythm and S1 normal heart sound GI normal to inspection, nondistended, normoactive bowel sounds, soft to palpation,non-tender and non-distended Neuro Sensorium / Orientation: awake and alert Assessment & Plan Assessment/Plan (1) Vertigo: PLAN: Suspect this may be a more profound case of BPPV. No obvious effusions noted on otoscopic exam. Though this may be different than previous presentations of vertigo, this may very well be BPPV. MRI brain negative. Continue with as needed meclizine. PT OT [...] full code. Charges/Coding Visit Charges Inpatient E&M: 96410 Subs Hosp L2 NIHSS NIHSS Nursing Documentation NIHSS Nursing Documentation: NIHSS: Ischemic Stroke/TIA Start: 04/01/25 19:46 Text: For ICU Patients: NIH sroke scale at Status: Complete presentation and every 2 hours or with change in RN caregiver Freq: [id number] Protocol: Activity Type Activity Date Activity User E-sign Co-sign Detail Recorded Client Recorded Date Recorded By Document 04/01/25 19:50 KW [id number] 04/01/25 19:59 KW 04/01/25 19:50 NIH Stroke Scale [NIHSS] A score of 0 is normal or asymptomatic . Total possible score is 42. Inpatient: RN or Physician to activate a stroke alert for onset of new stroke symptoms or with NIHSS increase >/= 3 points. Following change in neurological status, NIHSS will be performed per physician order or more frequently PRN. -1a. Level of Consciousness 0 - Alert; keenly responsive -1b. LOC Questions 0 - Answers BOTH questions correctly -1c. LOC Commands 0 - Performs BOTH tasks correctly -2. Best Gaze 0 - Normal -4. Facial Palsy 0 - Normal symmetrical movements -5a. Left Arm 0 - No drift; arm holds 90 ( or 45) degrees for full 10 seconds -5b. Right Arm 0 - No drift; arm holds 90 ( or 45) degrees for full 10 seconds -6a. Left Leg 0 - No drift; leg holds 30- degree position for full 5 seconds -6b. Right Leg 0 - No drift; leg holds 30- degree position for full 5 seconds -7. Limb Ataxia 0 - Absent -8. Sensory 0 - Normal; no sensory loss -9. Best Language 0 - No aphasia; normal -10. Dysarthria 0 - Normal -11. Extinction and Inattention 0 - No abnormality -Total 0 Query Text:A score of 0 is normal or asymptomatic. Total possible score is 42 . ED: Notify Physician for NIHSS increase by > / = 3 points. Inpatient: RN or Physician to activate a stroke alert for NIHSS increase of > / = 3 points. Coma Scale [Assess] -Eye Opening Spontaneous -Motor Obeys Commands -Verbal Oriented [Total] -Coma Scale Total 15 04/02/25 1346 <Electronically signed by Andrade Tapia DO> Cosigner Signature (if applicable): CC: ~ Signed ADDENDUM by Dr. Andrade Tapia DO on 04/02/25 at 1436 Addendum Patient also has been complaining of a migraine during many of these days. Waxes and wanes but overall has been very persistent. Is having some visual changes not described as blurry vision nor any description of scotoma. Very concerned the patient is having a migraine. Patient did try some antimigraine medications (unclear what that was) but will give her a dose of 10 mg of dexamethasone and observed. 04/02/25 1436<Electronically signed by Andrade Tapia DO> Cosigner Signature (if applicable): cc: ~* Signed [facility] Work Phone: 1(454) 142-933907-12-2025 Progress note [facility] Medical Records Department [address] [place] [address] Progress Note - Hospitalist 04/02/2548 MR#: [id number] Acct: [id number] Name: LISA UP Rep #:[id number] : 1945 79 From: Andrade Tapia DO PCP: Dr. Sylvia Lizama MD Status:ADM I N Location: [place] [address] Reason for Visit Reason for Visit: Diagnoses Dizziness and giddiness (04/01/25) Subjective Subjective Still with dizziness. Objective Data Objective Data Vital Signs: Vital Signs Temp Pulse Resp BP Pulse Ox O2 Del Method 36.9 C 60 18 109/50 L 95 Room Air 04/02/25 05:18 04/02/25 05:18 04/02/25 05:18 04/02/25 05:18 04/02/25 05:18 04/02/25 05:18 Oxygen Delivery Method Room Air Weight: 110.223 kg Body Mass Index (BMI) 44.4 Intake & Output: Intake and Output for Last 24 Hours 03/31/25 04/01/25 04/02/25 23:59 23:59 23:59 Output Total 600 / 600 Balance -600 / -600 Lab / Micro Data 04/01/25 14:25 04/01/25 14:25 Labs: Laboratory Results - last 24 hr 04/01/25 14:25: WBC 6.0, RBC 4.25, Hgb 13.4, Hct 41.1, MCV 96.7, MCH 31.5, MCHC 32.6, RDW Std Deviation 44.5 H, RDW Coeff of Medhat 12.5, Plt Count 147 L, MPV 10.1, Immature Gran % (Auto) 0.200, Neut % (Auto) 62.6, Lymph % (Auto) 23.5, Garland % (Auto) 9.6, Eos % (Auto) 3.9, Baso % (Auto) 0.2, Absolute Neuts (auto) 3.7, Absolute Lymphs (auto) 1.40, Nucleated RBC % 0, PT 17.0 H, INR 1.4, APTT 32.1, Sodium 141, Potassium 4.2, Chloride 103, Carbon Dioxide 27.5, Anion Gap 11, BUN 14, Creatinine 0.91, EstGFR (MDRD) Non-Af 64, BUN/Creatinine Ratio 15.9, Glucose 107 H, Calcium 9.9, Troponin T High Sens 12 D 04/01/25 14:50: POC Glucose 109 H 04/01/25 17:15: Troponin T Hi Sens 2 Hr 11 04/02/25 01:13: POC Glucose 146 H 04/02/25 06:13: Triglycerides 162, Cholesterol 176, LDL Cholesterol, Calc 109, VLDL Cholesterol 32,HDL Cholesterol 34 L, Cholesterol/HDL Ratio 5.13 Radiography Diagnostic Testing: Radiology Impression Head/Neck CTA 04/01/25 15:00 IMPRESSION: 1. Widely patent intracranial and cervical arterial vasculature. 2. No evidence of acute intracranial pathology. 3. Mild volume loss and chronic microangiopathic changes. Reading Location: [facility] Brain MRI 04/01/25 17:40 IMPRESSION: No acute intracranial abnormality. Reading Location: [id number] Physical Exam Const alert and no apparent distress HEENT head/scalp atraumatic and moist oral mucous membranes Cardio regular rate, regular rhythm and S1 normal heart sound GI normal to inspection, nondistended, normoactive bowel sounds, soft to palpation,non-tender and non-distended Neuro Sensorium / Orientation: awake and alert Assessment & Plan Assessment/Plan (1) Vertigo: PLAN: Suspect this may be a more profound case of BPPV. No obvious effusions noted on otoscopic exam. Though this may be different than previous presentations of vertigo, this may very well be BPPV. MRI brain negative. Continue with as needed meclizine. PT OT [...] full code. Charges/Coding Visit Charges Inpatient E&M: 75825 Subs Hosp L2 NIHSS NIHSS Nursing Documentation NIHSS Nursing Documentation: NIHSS: Ischemic Stroke/TIA Start: 04/01/25 19:46 Text: For ICU Patients: NIH sroke scale at Status: Complete presentation and every 2 hours or with change in RN caregiver Freq: [id number] Protocol: Activity Type Activity Date Activity User E-sign Co-sign Detail Recorded Client Recorded Date Recorded By Document 04/01/25 19:50 KW [id number] 04/01/25 19:59 KW 04/01/25 19:50 NIH Stroke Scale [NIHSS] A score of 0 is normal or asymptomatic . Total possible score is 42. Inpatient: RN or Physician to activate a stroke alert for onset of new stroke symptoms or with NIHSS increase >/= 3 points. Following change in neurological status, NIHSS will be performed per physician order or more frequently PRN. -1a. Level of Consciousness 0 - Alert; keenly responsive -1b. LOC Questions 0 - Answers BOTH questions correctly -1c. LOC Commands 0 - Performs BOTH tasks correctly -2. Best Gaze 0 - Normal -4. Facial Palsy 0 - Normal symmetrical movements -5a. Left Arm 0 - No drift; arm holds 90 ( or 45) degrees for full 10 seconds -5b. Right Arm 0 - No drift; arm holds 90 ( or 45) degrees for full 10 seconds -6a. Left Leg 0 - No drift; leg holds 30- degree position for full 5 seconds -6b. Right Leg 0 - No drift; leg holds 30- degree position for full 5 seconds -7. Limb Ataxia 0 - Absent -8. Sensory 0 - Normal; no sensory loss -9. Best Language 0 - No aphasia; normal -10. Dysarthria 0 - Normal -11. Extinction and Inattention 0 - No abnormality -Total 0 Query Text:A score of 0 is normal or asymptomatic. Total possible score is 42 . ED: Notify Physician for NIHSS increase by > / = 3 points. Inpatient: RN or Physician to activate a stroke alert for NIHSS increase of > / = 3 points. Coma Scale [Assess] -Eye Opening Spontaneous -Motor Obeys Commands -Verbal Oriented [Total] -Coma Scale Total 15 04/02/25 1346 Cosigner Signature (if applicable): CC: ~ Signed ADDENDUM by Dr. Andrade Tapia DO on 04/02/25 at 1436 Addendum Patient also has been complaining of a migraine during many of these days. Waxes and wanes but overall has been very persistent. Is having some visual changes not described as blurry vision nor any description of scotoma. Very concerned the patient is having a migraine. Patient did try some antimigraine medications (unclear what that was) but will give her a dose of 10 mg of dexamethasone and observed. 04/02/25 1436 Cosigner Signature (if applicable): cc: ~* Signed [facility]07-11-2025 History and physical note Author Andrade Tapia [facility] Note Date/Time April 01, 2025 5:46 pm [facility] Medical Records Department [address] [place] [address] H&P Exam - Hospitalist 04/01/25 1741 MR#: [id number] Acct: [id number] Name: ANNELLISA F Rep #:[id number] : 1945 79 From: Andrade Tapia DO PCP: Dr. Sylvia Lizama MD Status:ADM I N Location: [place] [id number]- [id number] HPI - General General Date of [...] the hospital service was contacted for admission. [facility] Medical History DVT (deep venous thrombosis) [...] vaccine, mRNA, Allergy Anaphylaxis Verified 04/01/25 12:34 [id number], erythromycin base Allergy Rash Verified 04/01/25 12:34 [...] % (Auto) 62.6, Lymph % (Auto) 23.5, Garland % (Auto) 9.6, Eos % (Auto) 3.9, [...] loss and chronic microangiopathic changes. Reading Location: [id number] Assessment & Plan Assessment/Plan (1) Vertigo: PLAN: [...] full code. Charges/Coding Visit Charges Inpatient E&M: 00003 Init Hosp L3 04/01/25 1746 <Electronically signed by Andrade Tapia DO> Cosigner Signature (if applicable): CC: Dr. Andrade Tapia DO; Dr. Sylvia Lizama MD~ Signed [facility] Work Phone: 1(988) 299-876607-11-2025 Evaluation note* Diagnosis Onset Date Resolution Status Admit Date Vertigo acute April 01 5:35pm Migraine headache chronic April 012024 5:35pm [facility] Work Phone: 1(979) 150-843307-11-2025 Discharge summary Author Cahse Jones [facility] Note Date/Time April 01, 2025 5:05 pm [facility] Medical Records Department [address] [place] [address] Emergency Department Summary 04/01/25 MR#: [id number] Acct: [id number] Name: LISA UP Rep #:[id number] : 1945 79 From: Chase Jones MD [...] similar symptoms: No Recent Illness/Hospitalization: No [facility]SH [facility] Medical History DVT (deep venous thrombosis) [...] vaccine, mRNA, Allergy Anaphylaxis Verified 04/01/25 12:34 [id number], erythromycin base Allergy Rash Verified 04/01/25 12:34 [...] but not alert according to the daughter. [place] Coma Scale: document GCS findings Spontaneous Obeys [...] dysmetria right upper extremity and problems with rskt-sl-ykzg the heel on the right concern patient [...] % (Auto) 62.6 Lymph % (Auto) 23.5 Garland % (Auto) 9.6 Eos % (Auto) 3.9 [...] loss and chronic microangiopathic changes. Reading Location: [id number] Patient and daughter were informed of results. Hospitalist was paged EKG Initial EKG: Attestation: I personally reviewed and interpreted this EKG as follows: Interpretation: Sinus Rhythm (Rate is 65. EKG is normal. CO interval is 184 ms. Cures duration 90 ms. QT duration 414 ms. Blackwell is normal.) Management Discussion w/another healthcare provider: [...] MD [Primary Care Provider] - Print Language: Kenyan Disposition Disposition: Acute Care Hospital [facility] NIHSS NIHSS 1a. Level of Consciousness: 1 [...] and left side.) 8. Sensory: 1 - Hooi-ce-vpaqpreo sensory loss; (Altered sensation right lower extremity [...] problems, contact your Primary Care Provider. Call 911 Pets ([phone]) or report to the closest Emergency Room. Call 911 if necessary. 04/01/25 1705 <Electronically signed by Chase Jones MD> Cosigner Signature (if applicable): CC: Dr. Sylvia Lizama MD ~ Signed [facility] Work Phone: 1([phone]) 111-241307-11-2025 History and physical note [facility] Medical Records Department [address] [place] [address] H&P Exam - Hospitalist 04/01/25 1741 MR#: [id number] Acct: [id number] Name: LISA UP Rep #:[id number] : 1945 79 From: Andrade Tapia DO PCP: Dr. Sylvia Lizama MD Status:ADM I N Location: [place] [address] HPI - General General Date of Admission: [...] and hearing jansen. She presented emergency room andunderwent a workup that was negative for any stroke with a CTA of the head and neck. With her ongoing symptoms, the hospital service was contacted for admission. [facility] Medical History DVT (deep venous thrombosis) [...] vaccine, mRNA, Allergy Anaphylaxis Verified 04/01/25 12:34 [id number], erythromycin base Allergy Rash Verified 04/01/25 12:34 [...] II through XII gross intact. Muscle strength 5-5in upper extremities bilaterally and 4 out of 5 in lower extremities bilaterally. Sensation grosslyintact throughout. Patient had limited range of motion [...] % (Auto) 62.6, Lymph % (Auto) 23.5, Garland % (Auto) 9.6, Eos % (Auto) 3.9, Baso % (Auto) 0.2, Absolute Neuts (auto) 3.7, Absolute Lymphs (auto) 1.40, Nucleated RBC % 0, PT 17.0 H, INR 1.4, APTT 32.1, Sodium 141, Potassium 4.2, Chloride 103, Carbon Dioxide 27.5, Anion Gap 11, BUN 14, Creatinine 0.91, EstGFR (MDRD) Non-Af 64, BUN/Creatinine Ratio 15.9, Glucose 107 H, Calcium 9.9, Troponin T High Sens 12 D 04/01/25 14:50: POC Glucose 109 H Imaging Radiology Impression Head/Neck CTA 04/01/25 15:00 IMPRESSION: 1. Widely patent intracranial and cervical arterial vasculature. 2. No evidence of acute intracranial pathology. 3. Mild volume loss and chronic microangiopathic changes. Reading Location: [facility] Assessment & Plan Assessment/Plan (1) Vertigo: PLAN: Along with status post ear fullness and abnormal sounds. No obvious effusions noted on otoscopic exam. Etiologies could be posterior circulation stroke versus benign paroxysmal positional vertigo though her symptoms are atypical for M?ni?re's disease. Plan is to do an MRI of the brain, echocar diogram, therapy evaluations. Continue with as needed meclizine. [...] full code. Charges/Coding Visit Charges Inpatient E&M: 79171 Init Hosp L3 04/01/25 1746 Cosigner Signature (if applicable): CC: Dr. Andrade Tapia DO; Dr. Sylvia Lizama MD~ Signed [facility]07-11-2025 Discharge summary [facility] Medical Records Department [address] [place] [address] Emergency Department Summary 04/01/25 MR#: [id number] Acct: [id number] Name: LISA UP Rep #:[id number] : 1945 79 From: Chase Jones MD [...] medical problems. She presents with her balance beingoff and double vision that started between 2 [...] She denies ringing or ears decreased hearing. Thereis been no slurred speech or difficulty expressing [...] Prior similar symptoms: No Recent [facility] Medical History DVT (deep venous thrombosis) [...] vaccine, mRNA, Allergy Anaphylaxis Verified 04/01/25 12:34 [id number], erythromycin base Allergy Rash Verified 04/01/25 12:34 [...] but not alert according to the daughter. [place] Coma Scale: document GCS findings Spontaneous Obeys [...] dysmetria right upper extremity and problems with xzah-mc-qihg the heel on the right concern patient [...] % (Auto) 62.6 Lymph % (Auto) 23.5 Garland % (Auto) 9.6 Eos % (Auto) 3.9 [...] loss and chronic microangiopathic changes. Reading Location: [id number] Patient and daughter were informed of results. Hospitalist was paged EKG Initial EKG: Attestation: I personally reviewed and interpreted this EKG as follows: Interpretation: Sinus Rhythm (Rate is 65. EKG is normal. CO interval is 184 ms. Cures duration 90 ms. QT duration 414 ms. Blackwell is normal.) Management Discussion w/another healthcare provider: [...] MD [Primary Care Provider] - Print Language: Kenyan Disposition Disposition: Acute Care Hospital [facility] NIHSS NIHSS 1a. Level of Consciousness: 1 [...] and left side.) 8. Sensory: 1 - Fsmy-qe-aztnfugx sensory loss; (Altered sensation right lower extremity [...] your Primary Care Provider. Call [facility] ([phone]) or report tothe closest Emergency Room. Call 911 if necessary. 04/01/25 1705 Cosigner Signature (if applicable): CC: Dr. Sylvia Lizama MD ~ Signed [facility]07-11-2025 Radiology Diagnostic study note [facility] Imaging Services [address] [place] [address] STROKE CTA Head AND Neck W/Con MR#: [id number] Acct: [id number] Name: LISA UP Rep #: [id number] : 1945 F 79 From: Sly Redman MD PCP: Dr. Sylvia Lizama MD Status: REG E R Study:STROKE CTA Head AND Neck W/Con Date of Exam: 04/01/25 Exam# [id number] Ordering Dr: Xenia Jones MD PROCEDURE: STROKE [...] intracranial arterial vasculature. No large vessel occlusion, flow- limiting stenosis, saccular aneurysm, or vascular malformation identified. [...] loss and chronic microangiopathic changes. Reading Location: [id number] CC: Dr. Chase Jones MD; Dr. Sylvia Lizama MD ~ [employer] Supervisor: Signed [facility]07-11-2025 Telephone encounter Note* Telephone Encounter - Yarely [...] daughter, she will go to ER (probably [facility] or maybe [facility]). Daughter to call back if any follow up is needed after evaluation. Nothing further needed. Closing TE. Yarely Lee RN [facility]07-11-2025 Miscellaneous Notes* Telephone Encounter - Yarely Lee [...] daughter, she will go to ER (probably [facility] or maybe [facility]). Daughter to call back if any follow up is needed after evaluation. Nothing further needed. Closing TE. Yarely Lee RN documented in this encounterWexner [facility] Center07-01-2025 History of Present illness Narrative* Asad Deras [...] that 15% of total events have the PR41mfy side scatter properties of lymphocytes. Interpretation: The [...] N/A 12/04/2016 ESOPHAGOGASTRODUODENOSCOPY TRANSORAL DIAGNOSTIC N/A 12/04/2016 PILOT KNOB FILTER 2019 INSJ TUNNELED CTR VAD W/SUBQ [...] Rash, GI Upset Urticarial rash, seen in [place] ER Latex Swelling Lisinopril Swelling Nafcillin Itching [...] Heart Father other (Other) Father Heart Brother ND, aneurysm Migraines Daughter Macular Degen Maternal Aunt [...] with any questions or concerns. Asad Deras APRN.COMPENSATION ASSOCIATE I spent a total of 30 minutes on the date of the service which included preparing to see the patient, bwdm-hf-hdda patient care, completing clinical documentation, obtaining and/or [...] evaluation of this patient. documented in this encounterWexner [facility] Center06-23-2025 Instructions* Patient Instructions* Gini Ayala APRN.LEONCIO - 03/14/2025 3:33 PM EDT - Start [...] talking during the measurement. documented in this encounterWexner Medical Center06-23-2025 History of Present illness Narrative* Gini Ayala [...] NEISHA VAGINAL HYSTERECTOMY ALLERGIES Covid-19 Vaccine, Mrna, [id number], Lnp-S (Moderna); Adhesive; Erythromycin; Latex; Lisinopril; Nafcillin; [...] Heart Father other (Other) Father Heart Brother ND, aneurysm Migraines Daughter Macular Degen Maternal Aunt [...] as needed for worsening/no improvement. Gini Ayala APRN.COMPENSATION ASSOCIATE Recording using [employer] software for draft documentation of the visit was discussed with the patient/authorized civil rights representative; all questions welcomed and answered. Patient/authorized civil rights representative agreed to proceed documented in this encounterWexner Medical Center06-10-2025 Instructions* Patient Instructions* Suppan, Judith A, ROLL CUTTING OPERATOR.COMPENSATION ASSOCIATE - 03/01/2025 11:50 AM EDT Labs end [...] review all the medicines you take, even cpim-qiw-qvxmuyx medicines. As you get older, the way [...] have certain medical conditions. documented in this encounterWexner Medical Center06-10-2025 History of Present illness Narrative* Judith Pickard [...] as Referring (Physical Medicine and Rehab) Chinyere Shea RN as Specialty Conductor/Engineer (Hematology/Oncology) Enid Rod LISW as Interlocking Tower Operator (Hematology/Oncology) Prince Fang MD (Hematology/Oncology) Kirsten Monroy (Inactive) (Optometry) Gini Ayala APRN.CNP as Otolaryngologist (Family Medicine) Judith Pickard APRN.CNP as Otolaryngologist (Family Medicine) Concerns today: Legs swell and [...] hospital stays. - Required rehabilitation in a halfway after the second fall. - Denies recent surgeries. Hearing Loss: - Reports hearing loss in both ears. Scoliosis: - Noted by daughter, who reports asymmetry in Lisa's back, with one side appearing larger than the other. - No associated pain reported. Hypothyroidism: - Managed with medication. - Recent thyroid levels were normal. Advanced Directives: - Has a living will, with daughter designated to make decisions if necessary. 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 - Discussed the importance of [...] Personalized prevention plan provided documented in this encounterWexner Medical Center06-05-2025 History of Present illness Narrative* Harini Martinez [...] 24, 2025 11:47 AM documented in this encounterWexner Medical Center04-08-2025 History of Present illness Narrative* Sylvia Lizama MD - 12/28/2024 3:51 PM EDT Patient presents with: Hospital F/U HPI: Patient presents today for office visit [facility]ec[facility] follow up. In [facility] 11/27-12/01 and then in [facility] from 12/01 [...] symptoms. No fever Has followed with Dr. Suggs. Is much stronger. Is walking back near [...] Rash, GI Upset Urticarial rash, seen in [place] ER Latex Swelling Lisinopril Swelling Nafcillin Itching [...] Heart Father other (Other) Father Heart Brother ND, aneurysm Migraines Daughter Macular Degen Maternal Aunt [...] - ICD9: 202.80,ICD10: C85.10 - per Dr Suggs. 8. Grade 2 follicular lymphoma of lymph [...] urology Sylvia Lizama MD documented in this encounterWexner Medical Center04-03-2025 Telephone encounter Note * Telephone Encounter - Mercy Mendez RN - 12/23/2024 11:22 AM EDT Phoned pt and scheduled [facility] f/u appt for 12/28/24 w/Dr. Lizama. [facility]04-03-2025 Miscellaneous Notes* Telephone Encounter - Mercy Mendez RN - 12/23/2024 11:22 AM EDT Phoned pt and scheduled [facility] f/u appt for 12/28/24 w/Dr. Lizama. * Telephone Encounter - Talia Silver LPN - 12/20/2024 11:27 AM EDT Printed her discharge paperwork from [facility] for review. * Telephone Encounter - Mercy [...] liquids. Pt reports she was discharged from [facility] on 12/17/24. Reports she was there for 2 weeks for rehab, for weakness. Reports she spent 2 weeks in [facility] prior to that. States she is not really sure how long she was at [facility]. Reports she was admitted to [facility] for covid and UTI. Attempted to do [...] f/u appt for TCM. documented in this encounterWexner Medical Center03-31-2025 Telephone encounter Note * Telephone Encounter - Talia Silver LPN - 12/20/2024 11:27 AM EDT Printed her discharge paperwork from [facility] for review. [facility]03-31-2025 Telephone encounter Note* Telephone Encounter - Mercy [...] liquids. Pt reports she was discharged from [facility] on 12/17/24. Reports she was there for 2 weeks for rehab, for weakness. Reports she spent 2 weeks in [facility] prior to that. States she is not really sure how long she was at [facility]. Reports she was admitted to [facility] for covid and UTI. Attempted to do [...] to schedule Hosp f/u appt for TCM. [facility]03-31-2025 History of Present illness Narrative* Mercy Mendez RN - 12/20/2024 8:34 AM EDT TRANSITION CARE MANAGEMENT (TCM) INITIAL CONTACT [employer] Outreach Provider Action/FYI: Pt was in [facility] for 2 weeks, then discharged to [facility] (on 12/01/24) and was there for 2 weeks. Pt unsure of the dates, and unsure how long she was in [facility]. States she will ask her daughter and call back. Pt states she will schedule f/u appt after she talks to her daughter. Initial contact with patient post discharge, spoke to patient. Patient identified by name and . TRANSITION CARE MANAGEMENT INITIAL OUTREACH DOCUMENTATION: 12/20/2024 Date of Outreach: Outreach Attempt 1: Contact Made Date of Discharge 12/17/2024 SUMMARY: -Pt discharged from [facility] on 12/17/24. -Admitted for: Rehab- weakness. [...] Medical records from recent hospitalization: Office printed [facility] discharge paperwork. documented in this encounterWexner Medical Center03-21-2025 History of Present illness Narrative* César Suggs, - 12/10/2024 9:00 AM EDT Oncologic problem(s): [...] that 15% of total events have the MF76yon side scatter properties of lymphocytes. Interpretation: The [...] N/A 12/04/2016 ESOPHAGOGASTRODUODENOSCOPY TRANSORAL DIAGNOSTIC N/A 12/04/2016 PILOT KNOB FILTER 2018 INSJ TUNNELED CTR VAD W/SUBQ [...] Rash, GI Upset Urticarial rash, seen in [place] ER Latex Swelling Lisinopril Swelling Nafcillin Itching [...] Heart Father other (Other) Father Heart Brother ND, aneurysm Migraines Daughter Macular Degen Maternal Aunt [...] temperature 36.6 C (97.8 F), temperature source Temporal,weight 109.3 kg (241 lb), SpO2 96%. Fatigued [...] likely caused by adenopathy. -Reviewed CT findings. CO with resolution hydronephrosis. -Discussed plan to monitor with CTs in about 3-4 months. -Can retreat with rituximab if PD and indication for therapy. Plan: -CBC/CMP/LDH CTs then OV with TOUR ACTOR in about 3-4 months. Portions of this documentation were copied and pasted from my previous office visit note dated 09/03/2024 in order to provide a cohesive continuity of the history. The note has been reviewed and edited and updated as necessary. César Suggs DO documented in this encounterWexner Medical Center03-19-2025 History of Present illness Narrative* Helen Corey MA - 12/08/2024 1:11 PM EDT POPULATION HEALTH NAVIGATION OUTREACH Action/FYI Spoke to Lisa. She at [facility] SN[facility] for COVID and UTI,. Topic Due [...] navigator back HCC related pt is at [facility] Navigation Signature: Helen Corey MA December 08, 2024 1:11 PM documented in this encounterWexner Medical Center03-12-2025 [facility] Medical Records Department [address] [place] [address] Discharge Summary 12/01/24 1550 MR#: [id number] Acct: [id number] Name: LISA UP Rep #: [id number] : 1945 79 From: Kenyon Joiner MD PCP: Dr. Sylvia Lizama MD Status:DIS IN Location: [place] [id number] Providers Date of Admission: 11/27/24 Primary Care [...] is a 79 F who presented to [facility] ED on 11/26/2024 with weakness and a fall at home. Patient lives at home alone, does have family that lives close by. Patient has history of non-Hodgkin's lymphoma, follows with Dr. Suggs. She initially completed 2 rounds of Rituxan [...] the risk benefits of going to the halfway and is okay with going today. 2. [...] does not need t (more content not included)...[facility]03-12-2025 Consult note [facility] Medical Records Department [address] [facility] [place] [address] Counseling Note - Pharmacy 12/01/24 1334 MR#: [id number] Acct: [id number] Name: LISA UP Rep #:[id number] : 1945 79 From: Harmony Rushing PCP: Dr. Sylvia Lizama MD Status:ADM I N Y Location: [place] [address] Pharmacy [place] Med Reconciliation Pharmacy Service has performed discharge [...] caps 12/01/24 12/01/24 1334 Date _ Harmony Pearson Signature (if applicable): Date CC: ~ Signed [facility]03-12-2025 Consult note Author Harmony Rushing [facility] Note Date/Time December 01, 2024 3:4 5pm [facility] Medical Records Department [address] [place] [address] Counseling Note - Pharmacy 12/01/24 1334 MR#: [id number] Acct: [id number] Name: LISA UP Rep #:[id number] : 1945 79 From: Harmony Rushing PCP: Dr. Sylvia Lizama MD Status:ADM I N Y Location: [place] [address] Pharmacy [place] Med Reconciliation Pharmacy Service has performed discharge [...] signed by Harmony Rushing> Date _ Harmony Chaneyign Signature (if applicable): Date CC: ~ Signed [facility] Work Phone: 1(369) 957-712903-12-2025 Discharge summary Author Kenyon Jonier [facility] Note Date/Time December 01, 2024 12: 00pm [facility] Medical Records Department [address] [place] [address] Transfer to Extended Care MR#: [id number] Acct: [id number] Name: LISA UP Rep #:[id number] : 1945 79 From: Kenyon reese MD PCP: Dr. Sylvia Lizama MD Status:ADM I N Certification of patient admission REQUIRED AT TIME OF ADMISSION. I CERTIFY THAT POST-HOSPITAL ECF SERVICES ARE REQUIRED TO BE GIVEN ON AN IN-PATIENT BASIS BECAUSE OF THE ABOVE NAMED PATIENT'S NEED FOR HALFWAY CARE ON A CONTINUING BASIS FOR THE CONDITION(S) FOR WHICH HE/SHE WAS RECEIVING IN-PATIENT HOSPITAL SERVICES PRIOR TO HIS/HER TRANSFER TO THE ECF. 12/01/24 1200<Electronically signed by Kenyon Joiner MD> [...] Done in Hospital Allergies COVID-19 vaccine, mRNA, [id number], Allergy (Verified 11/26/24 11:17) Anaphylaxis erythromycin base [...] in before D/C Order can be placed): [facility] Facility 12/01/24 1200 <Electronically signed by Kenyon Joiner MD> Cosigner Signature (if applicable): CC: Dr. Jaxson Meehan DO; Dr. Alysha Miguel MD; Dr. Sylvia Lizama MD ~ [facility] Work Phone: 1(950) 436-362103-12-2025 Discharge summary [facility] Medical Records Department [address] [place] [address] Transfer to [facility] MR#: [id number] Acct: [id number] Name: LISA UP Rep #:[id number] : 1945 79 From: Kenyon reese MD PCP: Dr. Sylvia Lizama MD Status:ADM I N Certification of patient admission REQUIRED AT TIME OF ADMISSION. I CERTIFY THAT POST-HOSPITAL ECF SERVICES ARE REQUIRED TO BE GIVEN ON AN IN-PATIENT BASIS BECAUSE OF THE ABOVE NAMED PATIENT'S NEED FOR HALFWAY CARE ON A CONTINUING BASIS FOR THE CONDITION(S) FOR WHICH HE/SHE WAS RECEIVING IN-PATIENT HOSPITAL SERVICES PRIOR TO HIS/HER TRANSFER TO THE ECF. 12/01/24 1200 Diet Diet Order/Speech Therapy: 11/30/24 [...] Done in Hospital Allergies COVID-19 vaccine, mRNA, [id number], Allergy (Verified 11/26/24 11:17) Anaphylaxis erythromycin base [...] in before D/C Order can be placed): [facility] Living Facility 12/01/24 1200 Cosigner Signature (if applicable): CC: Dr. Jaxson Meehan DO; Dr. Alysha Miguel MD; Dr. Sylvia Lizama MD ~ [facility]03-11-2025 Progress note Author Jaxson Meehan [facility] Note Date/Time November 30, 2024 3:2 7pm [facility] Medical Records Department [address] [place] [address] Progress Note - Hospitalist 11/30/24 1123 MR#: [id number] Acct: [id number] Name: LISA UP Rep #:[id number] : 1945 79 From: Jaxson de santiago DO PCP: Dr. Sylvia Lizama MD Status:ADM I N Location: [facility]U [id number] Reason for Visit Reason for Visit: [...] (Auto) 67.0, Lymph % (Auto) 18.2 L, Garland % (Auto) 10.3 H, Eos % (Auto) [...] is an 79-year-old female who presented to [facility] ED on 11/26/2024 with weakness and [...] recent immunotherapy treatment ? Follows with Dr. Suggs. Had 4 rounds of Rituxan infusion therapy [...] 35 minutes. Charges/Coding Visit Charges Inpatient E&M: 72770 Subs Hosp L2 11/30/24 6159 <Electronically signed by Jaxson Meehan DO> Cosigner Signature (if applicable): CC: ~ Signed [facility] Work Phone: 1(279) 658-383203-11-2025 Progress note [facility] Medical Records Department [address] [place] [address] Progress Note - Hospitalist 11/30/24 1123 MR#: [id number] Acct: [id number] Name: LISA UP Rep #:[id number] : 1945 79 From: Jaxson Hillman anyi DO PCP: Dr. Sylvia Lizama MD Status:ADM I N Location: [place] [address] Reason for Visit Reason for Visit: Diagnoses [...] (Auto) 67.0, Lymph % (Auto) 18.2 L, Garland % (Auto) 10.3 H, Eos % (Auto) [...] is an 79-year-old female who presented to [facility] ED on 11/26/2024 with weakness and [...] recent immunotherapy treatment ? Follows with Dr. Suggs. Had 4 rounds of Rituxan infusion therapy [...] 35 minutes. Charges/Coding Visit Charges Inpatient E&M: 73887 Subs Hosp L2 11/30/24 1527 Cosigner Signature (if applicable): CC: ~ Signed [facility]03-10-2025 Progress note Author Alysha Miguel [facility] Note Date/Time November 29, 2024 10: 17am [facility] Medical Records Department [address] [place] [address] Progress Note - Hospitalist 11/29/24806 MR#: [id number] Acct: [id number] Name: LISA UP Rep #:[id number] : 1945 79 From: Alysha Miguel MD PCP: Dr. Sylvia Lizama MD Status:ADM I N Location: [place] [address] Reason for Visit Reason for Visit: Diagnoses [...] % (Auto) 62.8, Lymph % (Auto) 20.1, Garland % (Auto) 12.7 H, Eos % (Auto) [...] requested for PT OT eval and social media marketing manager to assist with discharge planning ? 11/28/2024 patient still remains significantly weak. Case was discussed with case management today prior plan is for patient to be [facility] to a [facility] facility pending insurance 3. Non-Hodgkin's lymphoma ? [...] documentation, 50minutes Charges/Coding Visit Charges Inpatient E&M: 34482 Subs Hosp L3 11/29/24 0914 <Electronically signed by Alysha Miguel MD> Cosigner Signature (if applicable): CC: ~ Signed ADDENDUM by Dr. Alysha Miguel MD on 11/29/24 at 1017 Addendum Patient urinalysis obtained came back positive for acute cystitis subsequently started on Rocephin urine cultures already sent. 11/29/24 1017<Electronically signed by Alysha Miguel MD> Cosigner Signature (if applicable): cc: ~* Signed [facility] Work Phone: 1(233) 367-478003-10-2025 Progress note [facility] Medical Records Department [address] [place] [address] Progress Note - Hospitalist 11/29/24 0807 MR#: [id number] Acct: [id number] Name: LISA UP Rep #:[id number] : 1945 79 From: Alysha Miguel MD PCP: Dr. Sylvia Lizama MD Status:ADM I N Location: [place] [address] Reason for Visit Reason for Visit: Diagnoses Weakness (11/27/24) Other malaise (11/27/24) Subjective Subjective Patient seen complains of intermittent fever and chills. Temperature maximum over the past 24 [id number]. Repeated viral respiratory panel, checks x-ray urinalysis [...] % (Auto) 62.8, Lymph % (Auto) 20.1, Garland % (Auto) 12.7 H, Eos % (Auto) [...] - Preliminary No growth in 48 hours. 03/07/25 13:40 Mucosa - Nose SARS-CoV-2, Influenza & [...] requested for PT OT eval and social media marketing manager to assist with discharge planning ? 11/28/2024 patient still remains significantly weak. Case was discussed with case management today prior plan is for patient to be discharged to a [facility] facility pending insurance 3. Non-Hodgkin's lymphoma ? [...] documentation, 50minutes Charges/Coding Visit Charges Inpatient E&M: 42455 Subs Hosp L3 11/29/24 0914 Cosigner Signature (if applicable): CC: ~ Signed ADDENDUM by Dr. Alysha Miguel MD on 11/29/24 at 1017 Addendum Patient urinalysis obtained came back positive for acute cystitis subsequently started on Rocephin urine cultures already sent. 11/29/24 1017 Cosigner Signature (if applicable): cc: ~* Signed [facility]03-10-2025 Radiology Diagnostic study note [facility] Imaging Services [address] [place] [address] [id number] Chest 1 View (Portable) MR#: [id number] Acct: [id number] Name: LISA UP Rep #: [id number] : 1945 F 79 From: Aurora Li MD PCP: Dr. Sylvia Lizama MD Status: ADM I N Study:Chest 1 View (Portable) Date of Exam: 11/29/24 Exam# [id number] Ordering Dr: Shelia Miguel MD EXAM: XR Chest, 1 View CLINICAL INDICATION: TECHNIQUE: Frontal view of the chest. COMPARISON: No relevant prior studies available. FINDINGS: LUNGS AND PLEURAL SPACES: Unremarkable. No consolidation. No pneumothorax. HEART: Unremarkable. No cardiomegaly. MEDIASTINUM: Unremarkable. Normal mediastinal contour. BONES/JOINTS: Unremarkable. No acute fracture. RAD/Chest 1 View (Portable) IMPRESSION: No acute cardiopulmonary process. Reading Location: [facility] CC: Dr. Alysha Miguel MD; Dr. Sylvia Lizama MD ~ Canvas Goods Supervisor: Signed [facility]03-09-2025 Progress note Author Alysha Miguel [facility] Note Date/Time November 28, 2024 10:0 7am [facility] Medical Records Department [address] [place] [address] Progress Note - Hospitalist 11/28/24 0738 MR#: [id number] Acct: [id number] Name: LISA UP Rep #:[id number] : 1945 79 From: Alysha Miguel MD PCP: Dr. Sylvia Lizama MD Status:ADM I N Location: [place] [address] Reason for Visit Reason for Visit: Diagnoses [...] requested for PT OT eval and social media marketing manager to assist with discharge planning ? 11/28/2024 patient still remains significantly weak. Case was discussed with case management today prior plan is for patient to be discharged to a [facility] facility pending insurance 2. COVID-19 infection ? [...] 38 Minutes Charges/Coding Visit Charges Inpatient E&M: 79865 Subs Hosp L2 11/28/24 1007 <Electronically signed by Alysha Miguel MD> Cosigner Signature (if applicable): CC: ~ Signed [facility] Work Phone: 1(947) 146-724403-09-2025 Progress note [facility] Medical Records Department [address] [place] [address] Progress Note - Hospitalist 11/28/2438 MR#: [id number] Acct: [id number] Name: LISA UP Rep #:[id number] : 1945 79 From: Alysha Miguel MD PCP: Dr. Sylvia Lizama MD Status:ADM I N Location: [place] [address] Reason for Visit Reason for Visit: Diagnoses [...] requested for PT OT eval and social media marketing manager to assist with discharge planning ? 11/28/2024 patient still remains significantly weak. Case was discussed with case management today prior plan is for patient to be discharged to a [facility] facility pending insurance 2. COVID-19 infection ? [...] 38 Minutes Charges/Coding Visit Charges Inpatient E&M: 63584 Subs Hosp L2 11/28/24 1007 Cosigner Signature (if applicable): CC: ~ Signed [facility]03-09-2025 Progress note Author Alysha Miguel [facility] Note Date/Time November 28, 2024 7:39 am [facility] Medical Records Department [address] [place] [address] Progress Note - Hospitalist 11/27/24 08 MR#: [id number] Acct: [id number] Name: LISA UP Rep #:[id number] : 1945 79 From: Alysha Miguel MD PCP: Dr. Sylvia Lizama MD Status:ADM I N Location: [place] [address] Reason for Visit Reason for Visit: Diagnoses [...] (Auto) 71.0 H, Lymph % (Auto) 15.0 L,Garland % (Auto) 12.2 H, Eos % (Auto) [...] Clarity Clear, Urine pH 7.0, Ur Specific [place] 1.010, Urine Protein 15 H, Urine Glucose [...] as the left sphenoid sinus. Reading Location: [id number]-D Chest X-Ray 11/26/24 14:35 IMPRESSION: No acute abnormality is seen. Reading Location: RGM-[id number]-G Knee X-Ray 11/26/24 15:38 IMPRESSION: Status post total knee replacement. No acute abnormality is seen. Reading Location: LMZ-ZFRHIVRLR-G Brain MRI 11/26/24 17:29 IMPRESSION: 1. No acute intracranial abnormality. 2. Atrophy and chronic small-vessel ischemic disease. 3. Moderate scattered paranasal sinus disease. [facility] R[facility] Strip Rhythm Strip: Sinus Rhythm Rate: 68 Ectopy: None Assessment & Plan Assessment/Plan (1) Debility: (2) Weakness: PLAN: Plan Patient is an 79-year-old lady with recent diagnosis of COVID 2 weeks prior to her admission presented with progressive generalized weakness and fall 1. Physical deconditioning/debility ? Secondary to recent COVID-19 infection requested for PT OT eval and social media marketing manager to assist with discharge planning 2. COVID-19 [...] documentation,50 Minutes Charges/Coding Visit Charges Inpatient E&M: 28149 Subs Hosp L3 11/27/24 1020 <Electronically signed [...] Cosigner Signature (if applicable): cc: ~* Signed [facility] Work Phone: 1(445) 420-866703-09-2025 Progress note [facility] Medical Records Department [address] [place] [address] Progress Note - Hospitalist 11/27/24 0802 MR#: [id number] Acct: [id number] Name: LISA UP Rep #:[id number] : 1945 79 From: Alysha Miguel MD PCP: Dr. Sylvia Lizama MD Status:ADM I N Location: [place] [address] Reason for Visit Reason for Visit: Diagnoses [...] (Auto) 71.0 H, Lymph % (Auto) 15.0 L,Garland % (Auto) 12.2 H, Eos % (Auto) [...] Clarity Clear, Urine pH 7.0, Ur Specific [place] 1.010, Urine Protein 15 H, Urine Glucose [...] as the left sphenoid sinus. Reading Location: [id number]-[id number]-K Chest X-Ray 11/26/24 14:35 IMPRESSION: No acute abnormality is seen. Reading Location: ZJR-LWQICYXHR-C Knee X-Ray 11/26/24 15:38 IMPRESSION: Status post total knee replacement. No acute abnormality is seen. Reading Location: FEQ-TCOIHZBBP-L Brain MRI 11/26/24 17:29 IMPRESSION: 1. No acute intracranial abnormality. 2. Atrophy and chronic small-vessel ischemic disease. 3. Moderate scattered paranasal sinus disease. Reading [facility] Rhythm Strip Rhythm Strip: Sinus Rhythm Rate: 68 Ectopy: None Assessment & Plan Assessment/Plan (1) Debility: (2) Weakness: PLAN: Plan Patient is an 79-year-old lady with recent diagnosis of COVID 2 weeks prior to her admission presented with progressive generalized weakness and fall 1. Physical deconditioning/debility ? Secondary to recent COVID-19 infection requested for PT OT eval and social media marketing manager to assist with discharge planning 2. COVID-19 [...] documentation,50 Minutes Charges/Coding Visit Charges Inpatient E&M: 22084 Subs Hosp L3 11/27/24 1020 Cosigner Signature [...] Cosigner Signature (if applicable): cc: ~* Signed [facility]03-08-2025 Evaluation note* Diagnosis Onset Date Resolution Status Admit Date Debility acute November 27 11:55am Weakness acute November 27 11:55am [facility] Work Phone: 1(466) 777-116503-07-2025 History and physical note Author Jaxson Meehan [facility] Note Date/Time November 26, 2024 7:19 pm [facility] Medical Records Department [address] [place] [address] H&P Exam - Hospitalist 11/26/24 1607 MR#: [id number] Acct: [id number] Name: LISA UP Rep #:[id number] : 1945 79 From: Jaxson de santiago DO PCP: Dr. Sylvia Lizama MD Status:ADM I NO Location: [place] [address] HPI - General General Date of Admission: 11/26/24 Date of Service: 11/26/24 Chief Complaint: weakness with fall at home HPI Narrative LISA UP, is a 79 F who presented to [facility] ED on 11/26/2024 with weakness and a fall at home. Patient lives at home alone, does have family that lives close by. Patient has history of non-Hodgkin's lymphoma,follows with Dr. Suggs. She initially completed 2 rounds of Rituxan [...] any other acute concerns at this time. [facility] Medical History DVT (deep venous thrombosis) [...] vaccine, mRNA, Allergy Anaphylaxis Verified 11/26/24 11:17 [id number], erythromycin base Allergy Rash Verified 11/26/24 11:17 [...] (Auto) 71.0 H, Lymph % (Auto) 15.0 L,Garland % (Auto) 12.2 H, Eos % (Auto) [...] Clarity Clear, Urine pH 7.0, Ur Specific [place] 1.010, Urine Protein 15 H, Urine Glucose [...] as the left sphenoid sinus. Reading Location: [id number] Chest X-Ray 11/26/24 14:35 IMPRESSION: No acute abnormality is seen. Reading Location: [id number]-[id number]-E Knee X-Ray 11/26/24 15:38 IMPRESSION: Status post total knee replacement. No acute abnormality is seen. Reading Location: WTB-[id number]-G Assessment & Plan Assessment/Plan (1) Debility: (2) Weakness: PLAN: Plan Patient is an 79-year-old female who presented to [facility] ED on 11/26/2024 with weakness and [...] recent immunotherapy treatment ? Follows with Dr. Suggs. Had 4 rounds of Rituxan infusion therapy [...] 75 minutes. Charges/Coding Visit Charges Inpatient E&M: 87286 Init Hosp L3 11/26/24 2019 <Electronically signed by Jaxson Meehan DO> Cosigner Signature (if applicable): CC: Dr. Jaxson Meehan DO; Dr. Sylvia Lizama MD~ Signed [facility] Work Phone: 1(764) 668-656603-07-2025 History and physical note [facility] Medical Records Department [address] [place] [address] H&P Exam - Hospitalist 11/26/24 1607 MR#: [id number] Acct: [id number] Name: LISA UP Rep #:[id number] : 1945 79 From: Jaxson de santiago DO PCP: Dr. Sylvia Lizama MD Status:ADM I NO Location: [place] [address] HPI - General General Date of Admission: 11/26/24 Date of Service: 11/26/24 Chief Complaint: weakness with fall at home HPI Narrative LSIA UP, is a 79 F who presented to [facility] ED on 11/26/2024 with weakness and a fall at home. Patient lives at home alone, does have family that lives close by. Patient has history of non-Hodgkin's lymphoma,follows with Dr. Suggs. She initially completed 2 rounds of Rituxan [...] any other acute concerns at this time. [facility] Medical History DVT (deep venous thrombosis) [...] vaccine, mRNA, Allergy Anaphylaxis Verified 11/26/24 11:17 [id number], erythromycin base Allergy Rash Verified 11/26/24 11:17 [...] (Auto) 71.0 H, Lymph % (Auto) 15.0 L,Garland % (Auto) 12.2 H, Eos % (Auto) [...] Clarity Clear, Urine pH 7.0, Ur Specific [place] 1.010, Urine Protein 15 H, Urine Glucose [...] as the left sphenoid sinus. Reading Location: [id number]-J Chest X-Ray 11/26/24 14:35 IMPRESSION: No acute abnormality is seen. Reading Location: GWL-ILWXGHDRO-Z Knee X-Ray 11/26/24 15:38 IMPRESSION: Status post total knee replacement. No acute abnormality is seen. Reading Location: [id number]-H Assessment & Plan Assessment/Plan (1) Debility: (2) Weakness: PLAN: Plan Patient is an 79-year-old female who presented to [facility] ED on 11/26/2024 with weakness and [...] recent immunotherapy treatment ? Follows with Dr. Suggs. Had 4 rounds of Rituxan infusion therapy [...] 75 minutes. Charges/Coding Visit Charges Inpatient E&M: 47357 Init Hosp L3 11/26/242018 Cosigner Signature (if applicable): CC: Dr. Jaxson Meehan DO; Dr. Sylvia Lizama MD~ Signed [facility]03-07-2025 Discharge summary Author Tanisha [facility] Note Date/Time November 26, 2024 4:04 pm [facility] Medical Records Department [address] [place] [address] Emergency Department Summary 11/26/24 MR#: [id number] Acct: [id number] Name: LISA UP Rep #:[id number] : 1945 79 From: Tanisha Reynolds PCP: Dr. Sylvia Lizama MD Status:ADM I NO Location: [place] [address] HPI History of Present Illness Chief Complaint: [...] time. Patient is on any blood thinners. [facility] Medical History DVT (deep venous thrombosis) Post-menopausal [...] vaccine, mRNA, Allergy Anaphylaxis Verified 11/26/24 11:17 [id number], erythromycin base Allergy Rash Verified 11/26/24 11:17 [...] 71.0 H Lymph % (Auto) 15.0 L Garland % (Auto) 12.2 H Eos % (Auto) [...] Clarity Clear Urine pH 7.0 Ur Specific [place] 1.010 Urine Protein 15 H Urine Glucose [...] as the left sphenoid sinus. Reading Location: [facility] Chest X-Ray 11/26/24 14:35 IMPRESSION: No acute abnormality is seen. Reading Location: [id number]-P Knee X-Ray 11/26/24 15:38 IMPRESSION: Status post total knee replacement. No acute abnormality is seen. Reading Location: [facility] Rhythm Strip Rhythm Strip: Sinus Rhythm Rate: 68 Ectopy: None EKG Initial EKG: Attestation: I personally reviewed and interpreted this EKG as follows: Interpretation: Sinus Rhythm Comments: Normal sinus rhythm at a rate of 68 bpm Normal axis Normal intervals Normal ST segments Prior EKG tracings: available for review Prior: Unchanged Management Discussion w/another healthcare provider: Hospitalist and Optoelectronic Technician Discharge Plan Triage Chief Complaint: Fall ED Provider: Tanisha Bahena Dx/Rx/DC Orders Clinical Impression: Fall, Debility, Abnormal brain CT Primary Care Provider: Sylvia Lizama Disposition Disposition: Acute Care Hospital [facility] What to do if you have Problems For any increased pain, shortness of breath, bleeding, nausea or vomiting, chestpain, or any unexpected problems, contact your Primary Care Provider. Call [facility] ([phone]) or report to the closest Emergency Room. Call 911 if necessary. 11/26/24 1704 <Electronically signed by Tanisha Bahena DO> Cosigner Signature (if applicable): CC: Dr. Sylvia Lizama MD ~ Signed [facility] Work Phone: 1(663) 554-260503-07-2025 Discharge summary [facility] Medical Records Department [address] [place] [address] Emergency Department Summary 11/26/24 MR#: [id number] Acct: [id number] Name: LISA UP Rep #:[id number] : 1945 79 From: Tanisha Reynolds PCP: Dr. Sylvia Lizama MD Status:ADM I NO Location: [address] History of Present Illness Chief Complaint: [...] time. Patient is on any blood thinners. [facility] Medical History DVT (deep venous thrombosis) Post-menopausal [...] vaccine, mRNA, Allergy Anaphylaxis Verified 11/26/24 11:17 [id number], erythromycin base Allergy Rash Verified 11/26/24 11:17 [...] 71.0 H Lymph % (Auto) 15.0 L Gar[place] % (Auto) 12.2 H Eos % (Auto) [...] Clarity Clear Urine pH 7.0 Ur Specific [place] 1.010 Urine Protein 15 H Urine Glucose [...] as the left sphenoid sinus. Reading Location: [facility] Chest X-Ray 11/26/24 14:35 IMPRESSION: No acute abnormality is seen. Reading Location: [id number]-C Knee X-Ray 11/26/24 15:38 IMPRESSION: Status post total knee replacement. No acute abnormality is seen. Reading Location: [facility] Rhythm Strip Rhythm Strip: Sinus Rhythm Rate: 68 Ectopy: None EKG Initial EKG: Attestation: I personally reviewed and interpreted this EKG as follows: Interpretation: Sinus Rhythm Comments: Normal sinus rhythm at a rate of 68 bpm Normal axis Normal intervals Normal ST segments Prior EKG tracings: available for review Prior: Unchanged Management Discussion w/another healthcare provider: Hospitalist and Optoelectronic Technician Discharge Plan Triage Chief Complaint: Fall ED Provider: Tanisha Bahena Dx/Rx/DC Orders Clinical Impression: Fall, Debility, Abnormal brain CT Primary Care Provider: Sylvia Lizama Disposition Disposition: Acute Care Hospital [facility] What to do if you have Problems For any increased pain, shortness of breath, bleeding, nausea or vomiting, chestpain, or any unexpected problems, contact your Primary Care Provider. Call [facility] ([phone]) or report tothe closest Emergency Room. Call 911 if necessary. 11/26/24 1704 Cosigner Signature (if applicable): CC: Dr. Sylvia Lizama MD ~ Signed [facility]03-07-2025 Discharge summary [facility] Medical Records Department [address] [place] [address] Emergency Department Summary 11/26/24 MR#: [id number] Acct: [id number] Name: LISA UP Rep #:[id number] : 1945 79 From: Tanisha Reynolds PCP: Dr. Sylvia Lizama MD Status:ADM I NO Location: [place] [address] HPI History of Present Illness Chief Complaint: [...] time. Patient is on any blood thinners. [facility] Medical History DVT (deep venous thrombosis) Post-menopausal [...] vaccine, mRNA, Allergy Anaphylaxis Verified 11/26/24 11:17 [id number], erythromycin base Allergy Rash Verified 11/26/24 11:17 [...] 71.0 H Lymph % (Auto) 15.0 L [place] % (Auto) 12.2 H Eos % (Auto) [...] Clarity Clear Urine pH 7.0 Ur Specific [place] 1.010 Urine Protein 15 H Urine Glucose [...] as the left sphenoid sinus. Reading Location: [id number]-N Chest X-Ray 11/26/24 14:35 IMPRESSION: No acute abnormality is seen. Reading Location: JBV-[id number]-B Knee X-Ray 11/26/24 15:38 IMPRESSION: Status post total knee replacement. No acute abnormality is seen. Reading Location: GZE-[id number]-Z Rhythm Strip Rhythm Strip: Sinus Rhythm Rate: 68 Ectopy: None EKG Initial EKG: Attestation: I personally reviewed and interpreted this EKG as follows: Interpretation: Sinus Rhythm Comments: Normal sinus rhythm at a rate of 68 bpm Normal axis Normal intervals Normal ST segments Prior EKG tracings: available for review Prior: Unchanged Management Discussion w/another healthcare provider: Hospitalist and Optoelectronic Technician Discharge Plan Triage Chief Complaint: Fall ED Provider: Tanisha Bahena Dx/Rx/DC Orders Clinical Impression: Fall, Debility, Abnormal brain CT Primary Care Provider: Sylvia Lizama Disposition Disposition: Acute Care Hospital [facility] What to do if you have Problems For any increased pain, shortness of breath, bleeding, nausea or vomiting, chestpain, or any unexpected problems, contact your Primary Care Provider. Call [facility] ([phone]) or report tothe closest Emergency Room. Call 911 if necessary. 11/26/24 1704 Cosigner Signature (if applicable): CC: Dr. Sylvia Lizama MD ~ Signed [facility]03-07-2025 Radiology Diagnostic study note [facility] Imaging Services [address] [place], [place] [address] Knee 4 or More Views MR#: [id number] Acct: [id number] Name: LISA UP Rep #: [id number] : 1945 F 79 From: Ej Almanzar MD PCP: Dr. Sylvia Lizama MD Status: REG E R Study:Knee 4 or More Views Date of Exam: 11/26/24 Exam# [id number] Ordering Dr: Mingo Bahena DO PROCEDURE: KNEE [...] No acute abnormality is seen. Reading Location: [id number]-P CC: Dr. Tanisha Bahena DO; Dr. Sylvia Lizama MD ~ [employer] Supervisor: Signed [facility]03-07-2025 Telephone encounter Note* Telephone Encounter - Shannon Hui RN - 11/26/2024 3:33 PM EST Noted. Thank you. Shannon Hui RN [facility]03-07-2025 Miscellaneous Notes* Telephone Encounter - Shannon Hui RN - 11/26/2024 3:33 PM EST Noted. Thank you. Shannon Hui RN * Telephone Encounter - Rossana Escalona LPN - 11/26/2024 2:47 PM EST Spoke with daughter and patient. CT results given. Dr Suggs would like to see her a couple weeks after discharge when she if feeling better. Agreeable to plan. Will let us know when she is able to come in for visit, will call and set up apt. 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 Set up office visit several weeks down the road when she is feeling better. César Suggs DO * Telephone Encounter - María Elena Louis - 11/26/2024 8:39 AM EST Sabrina called to cancel office visit with Dr. Suggs today. Patient is on her way to ED. Sabrina states patient has been sick for several weeks. She has fever, weakness. Sabrina is asking if possible to have a phone call instead of office visit when patient is discharged (if admitted) [facility] Radiology Diagnostic study note [facility] Imaging Services [address] [place] [place] [address] [id number] Knee 4 or More Views MR#: [id number] Acct: [id number] Name: LISA UP Rep #: [id number] : 1945 F 79 From: Ej Almanzar MD PCP: Dr. Sylvia Lizama MD Status: REG E R Study:Knee 4 or More Views Date of Exam: 11/26/24 Exam# [id number] Ordering Dr: Mingo Bahena DO PROCEDURE: KNEE [...] No acute abnormality is seen. Reading Location: [id number] CC: Dr. Tanisha Bahena DO; Dr. Sylvia Lizama MD ~ [employer] Supervisor: Signed [facility]03-07-2025 Radiology Diagnostic study note [facility] Imaging Services [address] [place], [place] [address] Chest PA and Lateral MR#: [id number] Acct: [id number] Name: LISA UP Rep #: [id number] : 1945 F 79 From: Ej Almanzar MD PCP: Dr. Sylvia Lizama MD Status: REG E R Study:Chest PA and Lateral Date of Exam: 11/26/24 Exam# [id number] Ordering Dr: Mingo Bahena DO PROCEDURE: CHEST PA AND LATERAL REASON FOR EXAM: Weakness, cough and chills. TECHNIQUE: Frontal and lateral views of the chest. COMPARISON: Comparison is made with prior study dated November 06, 2024. FINDINGS: EKG electrodes are seen. The heart is not enlarged. The lungs are clear. RAD/Chest PA and Lateral IMPRESSION: No acute abnormality is seen. Reading Location: [id number] CC: Dr. Tanisha Bahena DO; Dr. Sylvia Lizama MD ~ [employer] Supervisor: Signed [facility]03-07-2025 Radiology Diagnostic study note [facility] Imaging Services [address] [place], [place] [address] Brain/Head without Contrast MR#: [id number] Acct: [id number] Name: LISA UP Rep #: [id number] : 1945 F 79 From: Ej Almanzar MD PCP: Dr. Sylvia Lizama MD Status: REG E R Study:Brain/Head without Contrast Date of Exa m: 11/26/24 Exam# [id number] Ordering Dr: Mingo Bahena DO EXAM: BRAIN/HEAD [...] as the left sphenoid sinus. Reading Location: [id number] CC: Dr. Tanisha Bahena DO; Dr. Sylvia Lizama MD ~ [employer] Supervisor: Signed [facility]03-07-2025 Telephone encounter Note* Telephone Encounter - Rossana Escalona LPN - 11/26/2024 2:47 PM EST Spoke with daughter and patient. CT results given. Dr Suggs would like to see her a couple weeks after discharge when she if feeling better. Agreeable to plan. Will let us know when she is able to come in for visit, will call and set up apt. (ER today for bronchitis and fall at home) Rossana Escalona LPN [facility]03-07-2025 Discharge summary Author Tanisha Bahena [facility] Note Date/Time November 26, 2024 5:04 pm [facility] Medical Records Department [address] [place] [address] Emergency Department Summary 11/26/24 MR#: [id number] Acct: [id number] Name: LISA UP Rep #:[id number] : 1945 79 From: Tanisha Reynolds PCP: Dr. Sylvia Lizama MD Status:ADM I NO Location: [place] [address] HPI History of Present Illness Chief Complaint: [...] time. Patient is on any blood thinners. [facility] Medical History DVT (deep venous thrombosis) Post-menopausal [...] vaccine, mRNA, Allergy Anaphylaxis Verified 11/26/24 11:17 [id number], erythromycin base Allergy Rash Verified 11/26/24 11:17 [...] 71.0 H Lymph % (Auto) 15.0 L Garland % (Auto) 12.2 H Eos % (Auto) [...] Clarity Clear Urine pH 7.0 Ur Specific [place] 1.010 Urine Protein 15 H Urine Glucose [...] as the left sphenoid sinus. Reading Location: [facility] Chest X-Ray 11/26/24 14:35 IMPRESSION: No acute abnormality is seen. Reading Location: [id number] Knee X-Ray 11/26/24 15:38 IMPRESSION: Status post total knee replacement. No acute abnormality is seen. Reading Location: [facility] Rhythm Strip Rhythm Strip: Sinus Rhythm Rate: 68 Ectopy: None EKG Initial EKG: Attestation: I personally reviewed and interpreted this EKG as follows: Interpretation: Sinus Rhythm Comments: Normal sinus rhythm at a rate of 68 bpm Normal axis Normal intervals Normal ST segments Prior EKG tracings: available for review Prior: Unchanged Management Discussion w/another healthcare provider: Hospitalist and Optoelectronic Technician Discharge Plan Triage Chief Complaint: Fall ED Provider: Tanisha Bahena Dx/Rx/DC Orders Clinical Impression: Fall, Debility, Abnormal brain CT Primary Care Provider: Sylvia Lizama Disposition Disposition: Acute Care Hospital [facility] What to do if you have Problems For any increased pain, shortness of breath, bleeding, nausea or vomiting, chestpain, or any unexpected problems, contact your Primary Care Provider. Call [facility] ([phone]) or report to the closest Emergency Room. Call 911 if necessary. 11/26/24 1704 <Electronically signed by Tanisha Bahena DO> Cosigner Signature (if applicable): CC: Dr. Sylvia Lizama MD ~ Signed [facility] Work Phone: 1(840) 934-435403-07-2025 Radiology Diagnostic study note [facility] Imaging Services [address] [place] [address] Chest PA and Lateral MR#: [id number] Acct: [id number] Name: LISA UP Rep #: [id number] : 1945 F 79 From: Ej Almanzar MD PCP: Dr. Sylvia Lizama MD Status: REG E R Study:Chest PA and Lateral Date of Exam: 11/26/24 Exam# [id number] Ordering Dr: Mingo Bahena DO PROCEDURE: CHEST PA AND LATERAL REASON FOR EXAM: Weakness, cough and chills. TECHNIQUE: Frontal and lateral views of the chest. COMPARISON: Comparison is made with prior study dated November 06, 2024. FINDINGS: EKG electrodes are seen. The heart is not enlarged. The lungs are clear. RAD/Chest PA and Lateral IMPRESSION: No acute abnormality is seen. Reading Location: [id number] CC: Dr. Tanisha Bahena DO; Dr. Sylvia Lizama MD ~ [employer] Supervisor: Signed [facility]03-07-2025 Radiology Diagnostic study note [facility] Imaging Services [address] [place] [address] Brain/Head without Contrast MR#: [id number] Acct: [id number] Name: LISA UP Rep #: [id number] : 1945 F 79 From: Ej Almanzar MD PCP: Dr. Sylvia Lizama MD Status: REG E R Study:Brain/Head without Contrast Date of Exa m: 11/26/24 Exam# [id number] Ordering Dr: Mingo Bahena DO EXAM: BRAIN/HEAD [...] as the left sphenoid sinus. Reading Location: [id number] CC: Dr. Tanisha Bahena DO; Dr. 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 Set up office visit several weeks down the road when she is feeling better. César Suggs DO [facility]03-07-2025 Telephone encounter Note* Telephone Encounter - María Elena Louis - 11/26/2024 8:39 AM EST Sabrina called to cancel office visit with Dr. Suggs today. Patient is on her way to ED. Sabrina states patient has been sick for several weeks. She has fever, weakness. Sabrina is asking if possible to have a phone call instead of office visit when patient is discharged (if admitted) [facility] Work Phone: [phone] Telephone encounter Note* Telephone Encounter - Sabrina Cavanaugh MA - 11/15/2024 8:01 AM EST Patient was made aware of the results. She was made of provider recommendations. Patient verbalizesunderstanding. Sabrina Cavanaugh Ma [facility]02-24-2025 Telephone encounter Note* Telephone Encounter - Sabrina [...] toolong for us to treat with Paxlovid. [facility]02-24-2025 Miscellaneous Notes* Telephone Encounter - Sabrina Cavanaugh [...] to treat with Paxlovid. documented in this encounterWexner Medical Center02-24-2025 Progress note* Result Encounter Note - Judith Pickard APRN.CNP - 11/15/2024 7:53 AM EST Please let patient know that she is positive for COVID. Take all the recommended precautions, rest,fluids, if she becomes short of breath, please go to the emergency room. This has been going on toolong for us to treat with Paxlovid. [facility]02-21-2025 Instructions* Patient Instructions* Judith Pickard APRN.CNP - 11/12/2024 3:59 PM EST 1) Keep appt. November 2) Swab for flu/Covid/and RSV documented in this encounterWexner Medical Center02-21-2025 History of Present illness Narrative* Judith Pickard APRN.COMPENSATION ASSOCIATE - 11/12/2024 3:39 PM EST This is [...] N/A 12/04/2016 ESOPHAGOGASTRODUODENOSCOPY TRANSORAL DIAGNOSTIC N/A 12/04/2016 PILOT KNOB FILTER 2019 INSJ TUNNELED CTR VAD W/SUBQ PORT AGE 5 YR/> 06/05/2022 JOINT REPLACEMENT HX L'SCOPE CHOLECYSTECTOMY 07/30/2022 Dr Gonzalez NEPHRECTOMY PARTIAL 1986 Nephrectomy, partial left (benign) PAST SURGICAL HISTORY OF 06/2018 lumbar burger with wound infection TONSILLECTOMY HX TOTAL ABDOMINAL HYSTERECT W/WO RMVL TUBE OVARY 1986 Hysterectomy, NEISHA VAGINAL HYSTERECTOMY ALLERGIES Covid-19 Vaccine, Mrna, [id number], Lnp-S (Moderna); Adhesive; Erythromycin; Latex; Lisinopril; Nafcillin; [...] Heart Father other (Other) Father Heart Brother ND, aneurysm Migraines Daughter Macular Degen Maternal Aunt [...] as needed for worsening/no improvement. Judith Pickard APRN.COMPENSATION ASSOCIATE documented in this encounterWexner Medical Center02-21-2025 History of Present illness Narrative* Dannielle Doll RT(R) - 11/12/2024 2:20 PM EST Radiology [...] PATIENT PRESENTS WITH AN IMPLANTABLE OR ATTACHED FIELD SERVICE TECHNICIAN: No ALLERGIES: Reviewed and unchanged CONTRAST ALLERGY: [...] 2024 TIME: 4:09 PM documented in this encounterWexner Medical Center02-19-2025 Telephone encounter Note * Telephone Encounter - Missy Peralta LPN - 11/10/2024 12:27 PM EST Patient notified to keep lab/CT appointments. Missy Peralta LPN [facility]02-19-2025 Miscellaneous Notes* Telephone Encounter - Missy Peralta LPN - 11/10/2024 12:27 PM EST Patient notified to keep lab/CT appointments. Missy Peralta LPN * Telephone Encounter - César Suggs DO - 11/10/2024 10:50 AM EST Yes. César Suggs DO * Telephone Encounter - Missy Peralta LPN - 11/10/2024 10:11 AM EST Patient has been sick for 3-4 weeks; SOB, productive cough, congestion. Denies chest pain or fever. Patient was seen at [facility] 11/01 and then went to [facility] ER 11/06/2024- diagnosed with sinusitisand bronchitis. Currently taking Augmentin. Continues with productive cough and SOB. Patient is asking if she should keep labs/CT on 11/12/2024 or reschedule? Missy Peralta LPN * Telephone Encounter - María Elena Louis - 11/10/2024 10:02 AM EST Patient called stating she has a cough/sinusitis and is asking if she should keep 11/12 appointmentswith lab/CT. She is asking if she coughs during CT, would it interfere with results. Please advise. documented in this encounterWexner Medical Center02-19-2025 Telephone encounter Note * Telephone Encounter - César Suggs DO - 11/10/2024 10:50 AM EST Yes. César Suggs DO [facility]02-19-2025 Telephone encounter Note* Telephone Encounter - Missy Peralta LPN - 11/10/2024 10:11 AM EST Patient has been sick for 3-4 weeks; SOB, productive cough, congestion. Denies chest pain or fever. Patient was seen at [facility] 11/01 and then went to [facility] ER 11/06/2024- diagnosed with sinusitisand bronchitis. Currently taking Augmentin. Continues with productive cough and SOB. Patient is asking if she should keep labs/CT on 11/12/2024 or reschedule? Missy Peralta LPN [facility]02-19-2025 Telephone encounter Note* Telephone Encounter - María Elena Louis - 11/10/2024 10:02 AM EST Patient called stating she has a cough/sinusitis and is asking if she should keep 11/12 appointmentswith lab/CT. She is asking if she coughs during CT, would it interfere with results. Please advise. [facility] Work Phone: 1(947) 998-867802-18-2025 Telephone encounter Note* Telephone Encounter - Yarely Lee RN - 11/09/2024 2:38 PM EST Daughter (Shauna) calls to request refill of hydralazine. Patient is completely out of medication and currently ill with bronchitis. Shauna reports that Dr. Lizama has ordered medication in the past and asking if he would please order again as patient is without. Last prescription was ordered by Dr. Suggs but PCP has prescribed previously. Shauna requests call back at [phone]. Yarely Lee RN [facility]02-18-2025 Miscellaneous Notes* Telephone Encounter - Yarely Lee RN - 11/09/2024 2:38 PM EST Daughter (Shauna) calls to request refill of hydralazine. Patient is completely out of medication and currently ill with bronchitis. Shauna reports that Dr. Lizama has ordered medication in the past and asking if he would please order again as patient is without. Last prescription was ordered by Dr. Suggs but PCP has prescribed previously. Shauna requests call back at [phone]. Yarely Lee RN * Telephone Encounter - María Elena Louis - 11/09/2024 9:39 AM EST Daughter called stating that Dr. Lizama's office informed her that Dr. Suggs refills. Patient is out and needs short [...] will need short term dose sent to [facility]. The patient has been identified by name [...] 08, 2024 10:10 AM documented in this encounterWexner Medical Center02-18-2025 Telephone encounter Note * Telephone Encounter - María Elena Louis - 11/09/2024 9:39 AM EST Daughter called stating that Dr. Lizama's office informed her that Dr. Suggs refills. Patient is out and needs short order sent to [facility], 90 days can be sent to mail in. [facility] Work Phone: 1(920) 868-496002-17-2025 Telephone encounter Note* Telephone Encounter - Tima Benavides RN - 11/08/2024 10:05 AM EST Pt states she doesn't know how the dose was decreased to 25 mg. Pt states she takes 50 mg BID. I couldn't see anywhere that it was decreased to 25 mg. Please resend and Pt will need short term dose sent to [facility]. The patient has been identified by name [...] Benavides RN November 08, 2024 10:10 AM [facility]02-12-2025 Telephone encounter Note* Telephone Encounter - Felicia West LPN - 11/03/2024 6:32 PM EST Patient notified.Felicia West LPN [facility]02-12-2025 Miscellaneous Notes* Telephone Encounter - Felicia West [...] urine specimen Please advise documented in this encounterWexner Medical Center02-11-2025 Telephone encounter Note * Telephone Encounter - Elida Lozada APRN.CNP - 11/02/2024 5:20 PM EST Urine culture reveals mixed bacterial growth. Patient can complete ATB if she desires and symptoms are improving. She will need to follow up with PCP to have repeat urine specimen Please advise [facility] Work Phone: 1(447) 697-771802-10-2025 Instructions* Patient Instructions* Elida Lozada APRN.CNP - [...] treated. A physician, nurse practitioner or physician social work assistant may treat with a short course [...] women if symptoms resolve. documented in this encounterWexner Medical Center02-10-2025 History of Present illness Narrative* Elba العلي RT(R) - 11/01/2024 12:30 PM EST Radiology Service [...] PATIENT PRESENTS WITH AN IMPLANTABLE OR ATTACHED FIELD SERVICE TECHNICIAN: No RADIOLOGY DEPARTMENT: General X-ray: Exam(s) Completed: Chest X-Ray PERIPHERAL IV DATA: Not applicable SIGNED BY: RT Tulio(R) November 01, 2024 12:25 PM documented in this encounterWexner Medical Center02-10-2025 History of Present illness Narrative* Elida Lozada APRN.COMPENSATION ASSOCIATE - 11/01/2024 12:22 PM EST This note was created using [employer]. Subjective Lisa Up is a 78 year [...] history is provided by the patient. No foreign language teacher was used. URI She complains of [...] NEISHA VAGINAL HYSTERECTOMY ALLERGIES Covid-19 Vaccine, Mrna, [id number], Lnp-S (Moderna); Adhesive; Erythromycin; Latex; Lisinopril; Nafcillin; [...] Heart Father other (Other) Father Heart Brother ND, aneurysm Migraines Daughter Macular Degen Maternal Aunt [...] care with fluids and rest Elida Lozada APRN.COMPENSATION ASSOCIATE documented in this encounterWexner Medical Center01-03-2025 History of Present illness Narrative* Lanie Matute RN - 09/24/2024 1:23 PM EST Pt here for C1 D8 of Rituxan. Completed initial dosing without any signs of reaction. Pt states that she just feels tired at completion. Daughter to rock picker. Denies any other issues or concerns Lanie Matute RN documented in this encounterWexner Medical Center12-30-2024 Telephone encounter Note * Telephone Encounter - [...] after hours number protocol. Chinyere Shea RN [facility] Work Phone: 1(888) 251-633212-30-2024 Miscellaneous Notes* Telephone Encounter - Chinyere Shea [...] attention and after hours number protocol. Chinyere Shea, RN documented in this encounterWexner Medical Center12-27-2024 History of Present illness Narrative* Ashley Castillo [...] made aware of restart. documented in this encounterWexner Medical Center12-16-2024 Telephone encounter Note * Telephone Encounter - Flor Moore - 09/06/2024 12:15 PM EST Patient is active with Medicare A&B/ZYB AARP Supplement, LOC 100%, $240 deductible has $0 remaining, $1632 OOP has $1632 remaining. Estimate shows patient financial responsibility is $1,025.51 for each treatment in 2023 until oop max is reached. Called the patient to discuss, left a voicemail to return call and sent my contact info with Felix Wilcox via [employer]. Reference #[id number] [facility]12-16-2024 Miscellaneous Notes* Telephone Encounter - Flor Moore - 09/06/2024 12:15 PM EST Patient is active with Medicare A&B/[employer] AARP Supplement, LOC 100%, $240 deductible has $0 remaining, $1632 OOP has $1632 remaining. Estimate shows patient financial responsibility is $1,025.51 for each treatment in 2024 until oop max is reached. Called the patient to discuss, left a voicemail to return call and sent my contact info with Felix Wilcox via [employer]. Reference #[id number] documented in this encounterWexner Medical Center12-13-2024 Telephone encounter Note * Telephone Encounter - Lou Rincon - 09/03/2024 2:13 PM EST Patient already scheduled. Lou Rincon [facility]12-13-2024 Miscellaneous Notes* Telephone Encounter - Lou Rincon - 09/03/2024 2:13 PM EST Patient already scheduled. Lou Rincon * Telephone Encounter - Shannon Hui RN - 09/03/2024 12:46 PM EST 6 weeks after finishing rituximab- CBC/CMP/LDH/CT C/A/P then OV with Dr. Suggs 1 week later. Shannon Hui RN * [...] 2, 3 and 4. documented in this encounterWexner Medical Center12-13-2024 Telephone encounter Note * Telephone Encounter - Shannon Hui RN - 09/03/2024 12:46 PM EST 6 weeks after finishing rituximab- CBC/CMP/LDH/CT C/A/P then OV with Dr. Suggs 1 week later. Shannon Hui RN [facility]12-13-2024 Telephone encounter Note* Telephone Encounter - Lou Rincon - 09/03/2024 12:33 PM EST Spoke with patient and scheduled. Please advise re: follow up office visit. Lou Rincon [facility]12-13-2024 Telephone encounter Note* Telephone Encounter - [...] for a C1 call. Shannon Hui RN [facility]12-13-2024 Telephone encounter Note* Telephone Encounter - Shaina Michel - 09/03/2024 11:35 AM EST Begin weekly rituximab 09/10/2024 X4 weeks. Will need CBC/CMP/LDH/Uric acid for cycle 1- may be a straight back for that. Will need CBC only for weeks 2, 3 and 4. [facility]12-13-2024 Miscellaneous Notes* Telephone Encounter - Shannon [...] call. Shannon Hui RN documented in this encounterWexner Medical Center12-13-2024 History of Present illness Narrative* César Suggs, - 09/03/2024 10:47 AM EST Elements copied from Brendon Coppola APRN.COMPENSATION ASSOCIATE note dated 12/16/2023 have been reviewed and [...] that 15% of total events have the LS90yta side scatter properties of lymphocytes. Interpretation: The [...] Rash, GI Upset Urticarial rash, seen in [place] [facility] Latex Swelling Lisinopril Swelling Nafcillin Itching [...] Heart Father other (Other) Father Heart Brother ND, aneurysm Migraines Daughter Macular Degen Maternal Aunt [...] and edited and updated as necessary. César Suggs DO documented in this encounterWexner Medical Center12-06-2024 History of Present illness Narrative* Dannielle Doll, (R) - 08/27/2024 11:20 AM EST Radiology Service [...] PATIENT PRESENTS WITH AN IMPLANTABLE OR ATTACHED FIELD SERVICE TECHNICIAN: No ALLERGIES: Reviewed and unchanged CONTRAST ALLERGY: [...] 2024 TIME: 11:44 AM documented in this encounterWexner Medical Center11-21-2024 History of Present illness Narrative* Barbara Owusu RT(R) - 08/12/2024 12:30 PM EST Radiology [...] PATIENT PRESENTS WITH AN IMPLANTABLE OR ATTACHED FIELD SERVICE TECHNICIAN: No ALLERGIES: Reviewed and unchanged CONTRAST ALLERGY: NO. EXAM: MRI - CONTRAST TYPE: GROUP II PERIPHERAL IV DATA: Ambulatory: A peripheral IV was started in the Left antecubital site with a Angio cath: 22 gauge. RADIOLOGY DEPARTMENT: MR; Exam(s) Completed: Head: Routine Brain SIGNATURE: RT Tanner(R) PATIENT NAME: Lisa Up DATE: August 12, 2024 TIME: 12:57 PM documented in this encounterWexner Medical Center11-20-2024 Telephone encounter Note * Telephone Encounter - [...] stated above Protocols used: Blood Pressure - [id number] [facility]11-20-2024 Miscellaneous Notes* Telephone Encounter - Sera Bills [...] stated above Protocols used: Blood Pressure - [id number] documented in this encounterWexner Medical Center11-06-2024 Telephone encounter Note * Telephone Encounter - Elmira Monroy MA - 07/28/2024 7:37 PM EST Pt was notified of the results. Pt verbalized understanding. lEmira Monroy MA [facility]11-06-2024 Miscellaneous Notes* Telephone Encounter - Elmira Monroy [...] has resolved. Please advise. documented in this encounterWexner Medical Center11-06-2024 Telephone encounter Note * Telephone Encounter - Elida Lozada APRN.CNP - 07/28/2024 4:39 PM EST Urine culture reveals mixed microbes This can occur at time of collection secondary to contamination by skin. Patient can complete ATB, follow up with PCP to repeat specimen. Ensure blood has resolved and infection has resolved. Please advise. [facility] Work Phone: 1(678) 501-793711-06-2024 Telephone encounter Note* Telephone Encounter - Bhavana Limon LPN - 07/28/2024 12:27 PM EST Images from the original note were not included. [facility]11-06-2024 Miscellaneous Notes* Telephone Encounter - Bhavana Limon LPN - 07/28/2024 12:27 PM EST Images from the original note were not included. documented in this encounterWexner Medical Center2024 Instructions* Patient Instructions* Helen Bonilla APRN.CNP - 07/27/2024 2:21 PM EST ASSESSMENT/PLAN: 1. [...] Discussed expected course of illness Helen Bonilla APRN.COMPENSATION ASSOCIATE [facility] PATIENT INFO BLADDER INFECTION OVERVIEW [...] actually have an infection. documented in this encounterWexner Medical Center2024 History of Present illness Narrative* Helen Bonilla [...] N/A 12/04/2016 ESOPHAGOGASTRODUODENOSCOPY TRANSORAL DIAGNOSTIC N/A 12/04/2016 DEVOAR FILTER 2019 INSJ TUNNELED CTR VAD W/SUBQ PORT AGE 5 YR/> 06/05/2022 JOINT REPLACEMENT HX L'SCOPE CHOLECYSTECTOMY 07/30/2022 Dr Gonzalez NEPHRECTOMY PARTIAL 1986 Nephrectomy, partial left (benign) PAST SURGICAL HISTORY OF 06/2018 lumbar burger with wound infection TONSILLECTOMY HX TOTAL ABDOMINAL HYSTERECT W/WO RMVL TUBE OVARY 1985 Hysterectomy, NEISHA VAGINAL HYSTERECTOMY ALLERGIES Covid-19 Vaccine, Mrna, [id number], Lnp-S (Moderna); Adhesive; Erythromycin; Latex; Lisinopril; Nafcillin; [...] Heart Father other (Other) Father Heart Brother ND, aneurysm Migraines Daughter Macular Degen Maternal Aunt [...] Discussed expected course of illness Helen Bonilla APRN.COMPENSATION ASSOCIATE documented in this encounterWexner Medical Center2024 Instructions* Patient Instructions* Missy Hirsch PA-C - [...] Feverfew: Feverfew is a common garden herb hughes to [place] and popular in [place] as a treatment for disorders typically controlled [...] pepperoni, Pickled cassidy Pods of broad vázquez (Kenyan beans, Mauritian pea pods, German (jeremi) beans, parson and navy beans Ripe [...] too muchlight. These can be obtained at [employer] or besomebody. Foods: see list above. 2. Limit use of acute treatments (dudj-xln-cltndnr medications, triptans, etc.) to no more than [...] and quiet environment. Relax and reduce stress. Fjjqffy2Afydd is a free tanja that can instruct you on some simple relaxtionand breathing techniques. Http://[employer] is a free website that provides teaching [...] and will be handling your phone calls, MDdatacor Messages and inquiries, if any. Unless explicitly told otherwise at the time of your office visit, your study results and ensuing treatment plans will be released via MDdatacor and discussed during your follow-up appointment. MDdatacor: Please ask the schedulers to give you an activation code. The main way of communication isby MDdatacor rather than phone lines, so if you have not signed up, please do so. MDdatacor is also theway that you can review your labs and testing. We are not able to contact everyone to tell them results are normal. If you do not hear back from us regarding testing you have had, it should be considered normal or within normal range. If you have any questions about the results, you are free to message us. [employer] is meant for simple questions regarding medications, possible side effects, or other simplestraight forward questions in limited sentences, rather than multiple paragraphs of discussion. MyChart is not meant for, or efficient for [...] do not comment on most testing on [employer])hart in a message or commentary unless there [...] you with this process. documented in this encounterWexner Medical Center2024 History of Present illness Narrative* Missy Hirsch PA-C - 07/27/2024 12:14 PM EST Images from the original note were not included. [facility] for General Neurology Name: Lisa Up Age: [...] a scratching noise in her ears. Saw ROBIN in 2022 for daily headache. Was put [...] Lumbar Intervertebral Disc Diarrhea History of Cholecystectomy [facility] Current Use of Anticoagulant Therapy Migraine Headache [...] Rash, GI Upset Urticarial rash, seen in [place] ER Latex Swelling Lisinopril Swelling Nafcillin Itching 06/29/21 negative penicillin skin testing. Passed oral amoxicillin challenge. Nifedipine Rash Norvasc [Amlodipine* Swelling Wasps Mental Status Change, Rash FAMILY HISTORY Problem Relation Age of Onset Heart Mother Cancer Mother lung Heart Father other (Other) Father Heart Brother ND, aneurysm Migraines Daughter Macular Degen Maternal Aunt PAST SURGICAL HISTORY Procedure Laterality Date ABDOMINAL SURGERY HX ARTHRP KNE CONDYLE&PLATU MEDIAL&LAT COMPARTMENTS February2010 Knee replacement, total, Left ARTHRP KNE CONDYLE&PLATU MEDIAL&LAT COMPARTMENTS 07/2010 Knee replacement, total, Right BACK SURGERY HX COLONOSCOPY FLX DX W/COLLJ SPEC WHEN PFRMD 06/05/2011 Colonoscopy COLONOSCOPY FLX DX W/COLLJ SPEC WHEN PFRMD N/A 12/04/2016 ESOPHAGOGASTRODUODENOSCOPY TRANSORAL DIAGNOSTIC N/A 12/04/2016 PILOT KNOB FILTER 2019 INSJ TUNNELED CTR VAD W/SUBQ [...] Finger Abduction 5 5 Slight decrease in tandem operator strength bilaterally at 4+/5. Right Left Hip [...] Desk Reference: National Heart, Lung, and Blood [place]. National Institutes of Health. 2001: NIH Publication [...] acute intracranial abnormality. Specifically no acute hemorrhage. Canvas Goods Supervisor: PSCB Transcribe Date/Time: Oct 22 2019 1:28P Dictated [...] hemorrhage. Discussed with Dr. Salinas at 5:21. Can[employer] Good[employer] Supervisor: IVAN Transcribe Date/Time: May 02 2019 5:10A Dictated by : DIONY SOMERS MD This examination was interpreted and the report reviewed and electronically signed by: DIONY SOMERS MD on May 02 2019 5:22AM EST , and CTA Head and/or Neck - Last 2 CTA HEAD W IVCON Exam End: 05/02/2019 6:04 AM (Final result) Impression: IMPRESSION: No intracranial branch occlusion or significant stenosis. Canvas Goods Supervisor: IVAN Transcribe Date/Time: May 02 2019 6:07A Dictated by : DIONY SOMERS MD This examination was interpreted and the report reviewed and electronically signed by: DIONY SOMERS MD on May 02 2019 6:13AM EST This note was dictated using [employer] speech recognition software and may contain some [...] which included preparing to see the patient, [id number] patient care, completing clinical documentation, obtaining and/or reviewing separately obtained history, performing a medically appropriate examination, counseling and educating the pat ient/family/caregiver, and ordering medications, tests, or procedures. documented in this encounterWexner Medical Center10-23-2024 Instructions* Patient Instructions* Franklyn Juares MD - 07/14/2024 9:23 AM EDT If you have any questions please contact our office at [phone]. After office hours or on the weekend, please call Dr. Juares on his cell phone at [phone]. documented in this encounterWexner Medical Center10-23-2024 History of Present illness Narrative* Franklyn Juares [...] others. I have seen and examined Lisa Mejiaum. I have discussed the case and the management of this patient's care with the Resident/Fellow, if applicable. I also have reviewed and agree with the assessment and plan as stated above and agree withall of its relevant components. documented in this encounterWexner Medical Center10-18-2024 History of Present illness Narrative* Rose Marie [...] PATIENT PRESENTS WITH AN IMPLANTABLE OR ATTACHED FIELD SERVICE TECHNICIAN: No RADIOLOGY DEPARTMENT: Mammography PERIPHERAL IV DATA: Not applicable SIGNED BY: RT Sharla(R) July 09, 2024 11:16 AM documented in this encounterWexner Medical Center10-15-2024 Instructions* Patient Instructions* Judith Pickard APRN.CNP - 07/06/2024 3:18 PM EDT 1) Keep follow up with me in November, can 2 week 2) Continue meclizine 2 x day 3) Consult neurology for dizziness 4) Ear wax kit given documented [facility] this [facility]10-15-[facility]24 History of Present illness Narrative* Judith Pickard APRN.COMPENSATION ASSOCIATE - 07/06/2024 2:56 PM EDT This is a 78 year old female who presents today with: Patient presents with: ER F/U: [facility] 07/04/24 Hypertention HISTORY OF PRESENT ILLNESS: Lisa Up is a 78 year old female. Patient presents with: ER F/U: [facility] 07/04/24 Hypertention Two days after starting prednisone, she became very flushed. No chest pain or dyspnea. Went to [facility] ER and they did complete work-up including [...] N/A 12/04/2016 ESOPHAGOGASTRODUODENOSCOPY TRANSORAL DIAGNOSTIC N/A 12/04/2016 PILOT KNOB FILTER 2018 INSJ TUNNELED CTR VAD W/SUBQ PORT AGE 5 YR/> 06/05/2022 JOINT REPLACEMENT HX L'SCOPE CHOLECYSTECTOMY 07/30/2022 Dr Gonzalez NEPHRECTOMY PARTIAL 1986 Nephrectomy, partial left (benign) PAST SURGICAL HISTORY OF 06/2018 lumbar burger with wound infection TONSILLECTOMY HX TOTAL ABDOMINAL HYSTERECT W/WO RMVL TUBE OVARY 1985 Hysterectomy, NEISHA VAGINAL HYSTERECTOMY ALLERGIES Covid-19 Vaccine, Mrna, [id number], Lnp-S (Moderna); Adhesive; Erythromycin; Latex; Lisinopril; Nafcillin; [...] Heart Father other (Other) Father Heart Brother ND, aneurysm Migraines Daughter Macular Degen Maternal Aunt [...] improvement. Judith Pickard APRN.LEONCIO documented in this encounterWexner Medical Center10-13-2024 Telephone encounter Note * Telephone Encounter - Layla Malave RN - 07/04/2024 3:10 AM EDT Reason for Call: HTN and ROBIN per patient ROBIN has been present throughout the night started [...] unsteady gait) Protocols used: Blood Pressure - [id number] [facility]10-13-[facility]24 Miscellaneous Notes* Telephone Encounter - Layla Malave RN - 07/04/2024 3:10 AM EDT Reason for Call: HTN and ROBIN per patient ROBIN has been present throughout the night started [...] unsteady gait) Protocols used: Blood Pressure - [id number] documented in this encounterWexner Medical Center10-11-2024 Instructions* Patient Instructions* Judith Pickard APRN.CNP - 07/02/2024 12:02 PM EDT 1) Please try to move up appt. With stenciler. 2) Augmentin 2 x day for 10 days 3) Prednisone taper- follow instruction 4) Meclizine 25 mg up to 3 x day but at least 2 x day until dizziness is better 5) Follow up in 2 weeks documented in this encounterWexner Medical Center10-11-2024 History of Present illness Narrative* Judith Pickard [...] NEISHA VAGINAL HYSTERECTOMY ALLERGIES Covid-19 Vaccine, Mrna, [id number], Lnp-S (Moderna); Adhesive; Erythromycin; Latex; Lisinopril; Nafcillin; [...] Heart Father other (Other) Father Heart Brother ND, aneurysm Migraines Daughter Macular Degen Maternal Aunt [...] nerves III- XII intact, + nystagmus No apckei-rz-afyc ataxia Generalized weakness Psychiatric: Comments: Poor judgement, [...] improvement. Judith Pickard APRN.CNP documented in this encounterWexner Medical Center10-10-2024 Telephone encounter Note * Telephone Encounter - Tima Benavides RN - 07/01/2024 8:49 AM EDT Pt called and is notified of providers results and instructions. Pt voices understanding. Tima Benavides RN [facility]10-10-2024 Miscellaneous Notes* Telephone Encounter - Tima Benavides [...] with. Kimberly Obregon LPN documented in this encounterWexner Medical Center10-10-2024 Telephone encounter Note * Telephone Encounter - Judith Pickard APRN.LEONCIO - 07/01/2024 7:57 AM EDT Have her increase losartan to 100 mg daily (can take 2 of the 50 mg until her appt.. [facility]10-09-2024 Telephone encounter Note* Telephone Encounter - Kimberly [...] she is scheduled with. Kimberly Obregon LPN [facility]09-26-2024 Note* Addendum Note - Judith Pickard APRN.CNP - 06/17/2024 12:20 PM EDTAddended by: JUDITH PICKARD on: 06/17/2024 12:20 PM Modules accepted: Orders [facility]09-26-2024 Miscellaneous Notes* Addendum Note - Judith Pickard APRN.CNP - 06/17/2024 12:20 PM EDTAddended by: JUDITH PICKARD on: 06/17/2024 12:20 PM Modules accepted: Orders documented in this encounterWexner Medical Center09-26-2024 Instructions* Patient Instructions* Judith Pickard APRN.CNP - 06/17/2024 12:10 PM EDT 1) Consult uro- gynecology (closest place) 2) OTC minoxidil topically to hair 3) Follow up in 6 months documented in this encounterWexner Medical Center09-26-2024 History of Present illness Narrative* Judith Pickard [...] NEISHA VAGINAL HYSTERECTOMY ALLERGIES Covid-19 Vaccine, Mrna, [id number], Lnp-S (Moderna); Adhesive; Erythromycin; Latex; Lisinopril; Nafcillin; [...] Heart Father other (Other) Father Heart Brother ND, aneurysm Migraines Daughter Macular Degen Maternal Aunt [...] improvement. Judith Pickard APRN.CNP documented in this encounterWexner Medical Center08-27-2024 Instructions* Patient Instructions* Judith Pickard APRN.CNP - 05/18/2024 2:45 PM EDT 1) Keep appt. 06/17 2) Stop clonidine 3) Decrease gabapentin to bedtime only, send message next week how you feel. Will likely discontinue documented in this encounterWexner Medical Center08-27-2024 History of Present illness Narrative* Judith Pickard APRN.[facility] - 05/18/2024 2:28 PM EDT This is a 78 year old female who presents today with: Patient presents with: ER F/U: [facility] 05/08/24 HISTORY OF PRESENT ILLNESS: Lisa Up is a 78 year old female. Patient presents with: ER F/U: [facility] 05/08/24 Walking to the bathroom, unsteady. Fell- passed out. Went to the emergency room at [facility], had a complete workup including a [...] date: VAGINAL HYSTERECTOMY ALLERGIES Covid-19 Vaccine, Mrna, [id number], Lnp-S (Moderna); Adhesive; Erythromycin; Latex; Lisinopril; Nafcillin; [...] Heart Father other (Other) Father Heart Brother ND, aneurysm Migraines Daughter Macular Degen Maternal Aunt [...] as needed for worsening/no improvement. Judith Pickard APRN.COMPENSATION ASSOCIATE documented in this encounterWexner Medical Center08-21-2024 Telephone encounter Note * Telephone Encounter - Felicia West LPN - 05/12/2024 6:58 PM EDT Patient notified.Felicia West LPN [facility]08-21-2024 Miscellaneous Notes* Telephone Encounter - Felicia West LPN - 05/12/2024 6:58 PM EDT Patient notified.Felicia West LPN * Telephone Encounter - Satyha Rajan MD - 05/12/2024 6:54 PM EDT Urine culture did not show a clear infection. Finish antibiotic and follow up with PCP, urology, orGYN for recheck of urine. documented in this encounterWexner Medical Center08-21-2024 Telephone encounter Note * Telephone Encounter - Sathya Rajan MD - 05/12/2024 6:54 PM EDT Urine culture did not show a clear infection. Finish antibiotic and follow up with PCP, urology, orGYN for recheck of urine. [facility] Work Phone: [phone]) 269-432508-20-2024 Instructions* Patient Instructions* Enid Potter APRN.CNP - [...] severe or concerning symptoms documented in this encounterWexner Medical Center08-20-2024 History of Present illness Narrative* Enid Potter [...] plan. Enid Potter APRN.CNP documented in this encounterWexner Medical Center08-12-2024 Instructions* Patient Instructions* Judith Pickard APRN.CNP - 05/03/2024 11:04 AM EDT 1) Fiber once a day with a full glass of water 2) Decrease omeprazole to once a day 3) Decrease clonidine to 0.1 mg 2 x day or 0.2 mg once a day 4) Follow up in 6 weeks documented in this encounterWexner Medical Center08-12-2024 History of Present illness Narrative* Judith Pickard [...] 12/04/2016: ESOPHAGOGASTRODUODENOSCOPY TRANSORAL DIAGNOSTIC; N/A No date: [facility] Comment: 201806/05/2022: INSJ TUNNELED CTR VAD W/SUBQ [...] date: VAGINAL HYSTERECTOMY ALLERGIES Covid-19 Vaccine, Mrna, [id number], Lnp-S (Moderna); Adhesive; Erythromycin; Latex; Lisinopril; Nafcillin; [...] Heart Father other (Other) Father Heart Brother ND, aneurysm Migraines Daughter Macular Degen Maternal Aunt [...] as needed for worsening/no improvement. Judith Pickard APRN.COMPENSATION ASSOCIATE documented in this encounterWexner Medical Center08-08-2024 History and physical note * Zeny Crowder MD - 04/29/2024 12:30 PM EDT HISTORY AND PHYSICAL Lisabetito Up 1945 REFERRING PHYSICIAN: Judith Pickard A* [...] for this visit. ALLERGIES: Covid-19 Vaccine, Mrna, [id number], Lnp-S (Moderna); Adhesive; Erythromycin; Latex; Lisinopril; Nafcillin; [...] Heart Father other (Other) Father Heart Brother ND, aneurysm Migraines Daughter Macular Degen Maternal Aunt REVIEW OF SYMPTOMS: The review of systems data was entered by the nurse and reviewed by me Nursing Notes: Ana Hernandez RN 03/29/2024 2:08 [...] (97.9 F), height 160 cm (5' 3), adwghg604.3 kg (234 lb 6.4 oz), SpO2 94%. [...] DATE: April 29, 2024 TIME: 11:44 AM [facility]08-08-[facility] History and physical note* Zeny Crowder MD [...] N/A 12/04/2016 ESOPHAGOGASTRODUODENOSCOPY TRANSORAL DIAGNOSTIC N/A 12/04/2016 PILOT KNOB FILTER 2019 INSJ TUNNELED CTR VAD W/SUBQ [...] for this visit. ALLERGIES: Covid-19 Vaccine, Mrna, [id number], Lnp-S (Moderna); Adhesive; Erythromycin; Latex; Lisinopril; Nafcillin; [...] Heart Father other (Other) Father Heart Brother ND, aneurysm Migraines Daughter Macular Degen Maternal Aunt REVIEW OF SYMPTOMS: The review of systems data was entered by the nurse and reviewed by wi Nursing Notes: Ana Hernandez RN 03/29/2024 2:08 [...] 2024 TIME: 11:44 AM documented in [place] encounterVin[place] [address]-08-2024 Nurse Note* Mercedes Malave RN - 04/29/2024 12:29 PM EDT pt arrived to phase 2 resting on left side. Daughter at bedside. SR up x 2, call light in reach. Mercedes Malave RN [facility]08-08-2024 Nurse Note* Mercedes Malave RN - 04/29/2024 12:29 PM EDT pt arrived to phase 2 resting on left side. Daughter at bedside. SR up x 2, call light in reach. Mercedes Malave RN documented in this encounterWexner Medical Center08-08-2024 Note* Discharge Instr - Nursing - Mercedes Malave RN - 04/29/2024 12:28 PM EDT The patient received a copy of Colonoscopy discharge instructions that contain information for how to contact the physician who performed the procedure and when to seek medical care. [facility]08-08-2024 Miscellaneous Notes* Discharge Instr - Nursing - Mercedes Malave RN - 04/29/2024 12:28 PM EDT The patient received a copy of Colonoscopy discharge instructions that contain information for how to contact the physician who performed the procedure and when to seek medical care. documented in this encounterWexner Medical Center08-07-2024 Telephone encounter Note * Telephone Encounter - Rossana Escalona LPN - 04/28/2024 9:59 AM EDT Noted. Rossana Escalona LPN [facility]08-07-2024 Miscellaneous Notes* Telephone Encounter - Rossana Escalona [...] week. * Telephone Encounter - Brendon Coppola APRN.LEONCIO - 04/26/2024 2:[address] abd/pelvis with Dr. Suggs. Pt. needs labs-LDH/uric acid soon. CT chest/abd/pelvis in 4 months then OV with CBC/CMP/LDH/Uric acid with Dr. Suggs. Thank you. Brendon Coppola APRN.COMPENSATION ASSOCIATE documented in this encounterWexner Medical Center08-07-2024 Telephone encounter Note * Telephone Encounter - María Elena Louis - 04/28/2024 9:23 AM EDT Spoke with patient and scheduled 4 mo appointments - lab, ct, ov. She states due to transportation, she will drop in for LDH/Uric Acid lab. She wasn't sure when daughter would be able to bring her this week. [facility] Work Phone: 1(985) 806-367408-05-2024 Telephone encounter Note* Telephone Encounter - Brendon Coppola APRN.COMPENSATION ASSOCIATE - 04/26/2024 2:[address] abd/pelvis with Dr. Suggs. Pt. needs labs-LDH/uric acid soon. CT chest/abd/pelvis in 4 months then OV with CBC/CMP/LDH/Uric acid with Dr. Suggs. Thank you. Brendon Coppola APRN.COMPENSATION ASSOCIATE [facility]07-29-2024 History of Present illness Narrative* Bozena Hirsch, FRANCESCO - 04/19/2024 7:14 PM EDT Transitional Care Management (TCM) Follow-Up Note PCP Update / Actionable Items Pt states diarrhea much improved but now has a cold - started yesterday , feeling tired and congested. Encouraged rest and hydration. Pt to contact PCP ' s office with any new or worsening symptoms. Patient Source: Sls-rq-Jpxsrjw (OON) Discharge Pt discharged from [facility] on 03/26/24. Admitted for: Diarrhea , [...] 19, 2024 7:16 PM documented in this encounterWexner Medical Center07-25-2024 History of Present illness Narrative* Elida Desir [...] PATIENT PRESENTS WITH AN IMPLANTABLE OR ATTACHED FIELD SERVICE TECHNICIAN: No RADIOLOGY DEPARTMENT: Ultrasound PERIPHERAL IV DATA: Not applicable SIGNED BY: Elida Desir RDMS RVT April 15, 2024 2:12 PM documented in this encounterWexner Medical Center07-25-2024 History of Present illness Narrative* Dannielle Doll RT(Barbra) - 04/15/2024 11:00 AM EDT Radiology Service [...] PATIENT PRESENTS WITH AN IMPLANTABLE OR ATTACHED FIELD SERVICE TECHNICIAN: No ALLERGIES: Reviewed and unchanged CONTRAST ALLERGY: [...] 2024 TIME: 2:56 PM documented in this encounterWexner Medical Center07-22-2024 History of Present illness Narrative* Bozena Hirsch RN - 04/12/2024 1:54 PM EDT TRANSITION CARE MANAGEMENT (TCM) FOLLOW-UP NOTE Provider Action/FYI Patient identified by name and date of : YES Spoke to patient Discharge Network Status: Ama-mf-Lpifsyb (OON) Discharge Summary: Pt discharged from [facility] on 03/26/24. Admitted for: Diarrhea , [...] concerns to call her PCP 's office. Conductor/Engineer plan for next outreach: TCM will continue to follow. NATE Education Ordered -: No Bozena Hirsch RN April 12, 2024 1:54 PM documented in this encounterWexner Medical Center07-18-2024 Instructions* Patient Instructions* Judith Pickard APRN.CNP - 04/08/2024 1:16 PM EDT 1) Meclizine 25 mg every 8 hours as needed for dizziness 2) Consult physical therapy for vestibular therapy 3) Keep follow up on 05/03/24 documented in this encounterWexner Medical Center07-18-2024 History of Present illness Narrative* Judith Pickard [...] NEISHA VAGINAL HYSTERECTOMY ALLERGIES Covid-19 Vaccine, Mrna, [id number], Lnp-S (Moderna); Adhesive; Erythromycin; Latex; Lisinopril; Nafcillin; [...] Heart Father other (Other) Father Heart Brother ND, aneurysm Migraines Daughter Macular Degen Maternal Aunt [...] as needed for worsening/no improvement. Judith Pickard APRN.COMPENSATION ASSOCIATE documented in this encounterWexner Medical Center07-18-2024 Telephone encounter Note * Telephone Encounter - [...] fluids daily). Protocols used: Blood Pressure - [id number] [facility]07-18-2024 Miscellaneous Notes* Telephone Encounter - Yarely Lee [...] fluids daily). Protocols used: Blood Pressure - [id number] documented in this encounterWexner Medical Center07-15-2024 History of Present illness Narrative* Kim Black [...] YES Spoke to patient Discharge Network Status: Lmm-fs-Augupva (OON) Discharge Summary: Pt discharged from [facility] on 03/26/24. Conductor/Engineer plan for next outreach: No further follow up needed at this time NATE Education Ordered -: No Kim Black RN April 05, 2024 10:22 AM documented in this encounterWexner Medical Center07-12-2024 History of Present illness Narrative* Sylvia Lizama MD - 04/02/2024 2:08 PM EDT Patient presents with: Transition Of Care HPI: Patient presents today for office visit for TCM: HOSPITAL/ER FOLLOW UP: Reason for visit: Diarrhea Which facility: [facility] Date of visit: 03/24/24 to 03/27/24 Diagnosis: [...] Rash, GI Upset Urticarial rash, seen in [place] ER Latex Swelling Lisinopril Swelling Nafcillin Itching [...] Heart Father other (Other) Father Heart Brother ND, aneurysm Migraines Daughter Macular Degen Maternal Aunt [...] weeks to reassess bp. documented in this encounterWexner Medical Center07-12-2024 History of Present illness Narrative* Zeny Crowder [...] for this visit. ALLERGIES: Covid-19 Vaccine, Mrna, [id number], Lnp-S (Moderna); Adhesive; Erythromycin; Latex; Lisinopril; Nafcillin; Nifedipine; Norvasc [Amlodipine Besylate]; and Wasps PERSONAL HISTORY: Social History Tobacco Use Smoking status: Never Smokeless tobacco: Never Vaping Use Vaping Use: Never used Substance Use Topics Alcohol use: No Drug use: No FAMILY HISTORY: FAMILY HISTORY Problem Relation Age of Onset Heart Mother Cancer Mother lung Heart Father other (Other) Father Heart Brother ND, aneurysm Migraines Daughter Macular Degen Maternal Aunt REVIEW OF SYMPTOMS: The review of systems data was entered by the nurse and reviewed by wi Nursing Notes: Ana Hernandez RN 03/29/2024 2:08 [...] (97.9 F), height 160 cm (5' 3), jrhujj777.3 kg (234 lb 6.4 oz), SpO2 94%. [...] with me 1 week post operatively. Zeny P Lakesha III, MD documented in this encounterWexner Medical Center07-09-2024 Telephone encounter Note * Telephone Encounter - Ebony Caro OCCA - 03/30/2024 11:44 AM EDT TC to patient who is informed of below. Patient to call in one week with BP readings. SMITA Cao [facility]07-09-2024 Miscellaneous Notes* Telephone Encounter - Ebony Caro [...] Friday with PCP given. documented in this encounterWexner Medical Center07-09-2024 Telephone encounter Note * Telephone Encounter - Sylvia Lizama MD - 03/30/2024 11:34 AM EDT Ok better. Call in bp list in one week [facility]07-09-2024 Telephone encounter Note* Telephone Encounter - Tima Benavides RN - 03/30/2024 11:01 AM EDT Pt called in with BP 140/74 HR 66. Pt denies any dizziness or headache. States she feels fine rightnow. [facility]07-09-2024 Telephone encounter Note* Telephone Encounter - Glo Low LPN - 03/30/2024 9:38 AM EDT Phoned patient went over notes from Dr Lizama with understanding. She will call bp reading back in few hours. [facility]07-09-2024 Telephone encounter Note* Telephone Encounter - Sylvia Lizama MD - 03/30/2024 9:27 AM EDT Take meds this am and recheck bp in a few hours after. Call it back in. [facility]07-09-2024 Telephone encounter Note* Telephone Encounter - Glo Low LPN - 03/30/2024 8:57 AM EDT Patient calling she said was told to call Dr Lizama with her blood pressure reading this morning. Shechecked at 830 am was 197/94 she did not write down the pulse, has not taken any of her medicationsyet this morning. Reminder of appt on Friday with PCP given. [facility]07-08-2024 Nurse Note* Ana Hernandez RN - 03/29/2024 2:44 PM EDT This Nurse reviewed and provided patient with copy of written instructions. The patient verbalized understanding and was given a number for questions. Ana Hernandez RN [facility]07-08-2024 Nurse Note* Ana Hernandez RN - 03/29/2024 [...] 12/04/2016 Ana Hernandez RN documented in this encounterWexner [facility] Center07-[facility]24 Nurse Note* Ana Hernandez RN - 03/29/2024 [...] Mammogram screening? 07/08/2023 Last Colonoscopy: 12/04/2016 Ana Hernandez, RN [facility]07-[facility] History of Present illness Narrative* Talia Silver [...] symptoms. Pt noted to be positive at [place] comm. for Norovirus. States stools becoming a [...] gen surg f/u SUMMARY: Discharge Network Status: Knm-lp-Zzlhozu (OON) Discharge Pt discharged from [facility] on 03/26/24. Admitted for: Diarrhea , chills Copied from Care everywhere : LISA ANNEL, is a 78-year-old female with history of hypertension, GERD, DVT, hypothyroidism morbid obesity, RLS who presented to [facility] ED 03/24/2024 due to diarrhea and [...] Home Visit Referral Source of Stratification: TCM [facility] Hospital Admission Status: Discharged Readmission Risk Score: [...] RN and I am calling [facility] the [facility] on behalf of yourP, Sylvia Lizama MD I understand you were [...] her stomach and for BP while at [facility]. Resumed hydralazine BID and Coreg. Do you [...] like to speak with a social work bakery team leader to help give you support for any [...] I will send your request to a cadd manager who will contact and assist you with [...] way if possible). NATE Education Ordered -: Alanan Hirsch RN March 29, 2024 11:02 AM documented in this encounterWexner Medical Center07-03-2024 Telephone encounter Note * Telephone Encounter - Gini Ayala APRN.CNP - 03/24/2024 12:34 PM EDT Noted. Gini Ayala APRN.CNP [facility] Miscellaneous Notes* Telephone Encounter - Gini Ayala APRN.CNP - 03/24/2024 12:34 PM EDT Noted. Gini Ayala APRN.CNP * Telephone Encounter - Tima Benavides RN - 03/24/2024 8:56 AM EDT Pt called and is notified of providers results and instructions. Pt voices understanding. Pt statesher kids are going to pick her up and take her to [facility]. I let her know provider would look for reports. Tima Benavides, FRANCESCO * Telephone Encounter - Gini Aylaa APRN.CNP - 03/24/2024 8:29 AM EDT If she is feeling more weak, then I would consider going into the ER, as she may need additional labwork and hydration. Gini Ayala APRN.CNP * Telephone Encounter - Hui Solomon LPN [...] that long. Please advise. documented in this encounterWexner Medical Center07-03-2024 Telephone encounter Note * Telephone Encounter - Tima Benavides RN - 03/24/2024 8:56 AM EDT Pt called and is notified of providers results and instructions. Pt voices understanding. Pt statesher kids are going to pick her up and take her to [facility]. I let her know provider would look for reports. Tima Benavides, RN [facility] Telephone encounter Note* Telephone Encounter - Gini Ayala APRN.CNP - 03/24/2024 8:29 AM EDT If she is feeling more weak, then I would consider going into the ER, as she may need additional labwork and hydration. Gini Ayala APRN.LEONCIO [facility]07-03[facility] Telephone encounter Note* Telephone Encounter - Hiu Solomon LPN - 03/24/2024 8:03 AM EDT Patient calling. States that she feels like she is getting worse. She is more weak and fatigued especially if she eats. She is still having diarrhea. Thinks that she even possibly had hallucinations.She is scheduled with general surgery on 03/29 but she is not sure she can wait that long. Please advise. [facility] Tele[facility] encounter Note* Telephone Encounter - Gorge Melendrez LPN - 03/23/2024 2:19 PM EDT Pt notified. She verbalized understanding. Gorge Melendrez LPN [facility]07-02-2024 Miscellaneous Notes* Telephone Encounter - Gorge Melendrez [...] colon for causes of inflammation. Gini Ayala APRN.LEONCIO documented in this encounterWexner Medical Center07-02-2024 Telephone encounter Note * Telephone Encounter - [...] colon for causes of inflammation. Gini Ayala APRN.LEONCIO [facility]06-28[facility] Telephone encounter Note* Telephone Encounter - Gorge [...] Melendrez LPN March 19, 2024 1:45 PM [facility] Miscellaneous Notes* Telephone Encounter - Gorge Melendrez [...] refills. Pt not due for medication refill. message to pt advising of the same. Gorge Melendrez LPN March 19, 2024 1:45 PM documented in this encounterWexner Medical Center06-24-2024 Instructions* Patient Instructions* Gini Ayala APRN.LEONCIO - 03/15/2024 11:28 AM EDT Start the doxycycline. Continue mucinex. Start probiotics. Stay well hydrated! Stop at lab and get stool containers. documented in this encounterWexner Medical Center06-24-2024 History of Present illness Narrative* Gini Ayala APRN.LEONCIO - 03/15/2024 10:38 AM EDT This is [...] NEISHA VAGINAL HYSTERECTOMY ALLERGIES Covid-19 Vaccine, Mrna, [id number], Lnp-S (Moderna); Adhesive; Erythromycin; Latex; Lisinopril; Nafcillin; [...] Heart Father other (Other) Father Heart Brother ND, aneurysm Migraines Daughter Macular Degen Maternal Aunt [...] needed for worsening/no improvement. Gini Ayala APRN.CNP The patient indicates understanding of these issues and agrees with the plan. documented in this encounterWexner Medical Center06-24-2024 Telephone encounter Note * Telephone Encounter - [...] 30 days. Protocols used: Weakness (Generalized) and Cxkbqko-EPHAR-TI [facility]06-[facility] Miscellaneous Notes* Telephone Encounter - Abril Henriquez [...] 30 days. Protocols used: Weakness (Generalized) and Howbjvv-BXYLP-TE documented in this encounterWexner Medical Center06-13-2024 Instructions* Patient Instructions* Judith Pickard APRN.CNS - 03/04/2024 11:54 AM EDT 1) Consult GI 2) Labs today 3) Increase psyllium powder to 2 x day 4) Follow up in 3 months documented in this encounterWexner Medical Center06-13-2024 History of Present illness Narrative* Judith Pickard [...] NEISHA VAGINAL HYSTERECTOMY ALLERGIES Covid-19 Vaccine, Mrna, [id number], Lnp-S (Moderna); Adhesive; Erythromycin; Latex; Lisinopril; Nafcillin; [...] Heart Father other (Other) Father Heart Brother ND, aneurysm Migraines Daughter Macular Degen Maternal Aunt [...] as needed for worsening/no improvement. Judith Pickard APRN.CNS documented in this encounterWexner Medical Center06-12-2024 Miscellaneous Notes* Telephone Encounter - Yarely Lee [...] No fever, blood in stool Protocols used: Kievxsto-BZBYX-AD documented in this encounterWexner Medical Center06-12-2024 Telephone encounter Note * Telephone Encounter - [...] No fever, blood in stool Protocols used: Dhqlhwkc-DMAOD-GP [facility]05[facility] History of Present illness Narrative* McleansboroShaila, BECKY.COMPENSATION ASSOCIATE - 02/19/2024 1:15 PM EDT Supervisor Boarding offered: Patient declines. Lisa Up is a [...] L3 SAB0 IAB0 Ectopic0 Multiple0 Live Births0 Clinical Assessment Manager History LMP: Hysterectomy Age at Menarche: Age at First : Age at Menopause: Clinical Assessment Manager History Comments: Sexual Activity: Not Asked; [...] Heart Father other (Other) Father Heart Brother ND, aneurysm Migraines Daughter Macular Degen Maternal Aunt [...] 02/19/2024 Allergen Noted Reaction COVID-19 VACCINE, MRNA, [id number]*06/29/2021 Anaphylaxis ADHESIVE 06/10/2022 Rash ERYTHROMYCIN 06/08/2013 Rash [...] Level: 3 - Low documented in this encounterWexner Medical Center05-16-2024 Instructions* Patient Instructions* Judith Pickard APRN.CNS - 02/05/2024 11:28 AM EDT 1) Paxil 10 mg daily 2) Diclofenac gel 2 x day to left shoulder 3) Follow up in 6 weeks documented in this encounterWexner Medical Center05-16-2024 History of Present illness Narrative* Judith Pickard APRN.CNS - 02/05/2024 11:10 AM EDT This is [...] NEISHA VAGINAL HYSTERECTOMY ALLERGIES Covid-19 Vaccine, Mrna, [id number], Lnp-S (Moderna); Adhesive; Erythromycin; Latex; Lisinopril; Nafcillin; [...] Heart Father other (Other) Father Heart Brother ND, aneurysm Migraines Daughter Macular Degen Maternal Aunt [...] as needed for worsening/no improvement. Judith Pickard APRN.BRICK CHIMNEY BUILDER documented in this encounterWexner Medical Center04-25-2024 Telephone encounter Note * Telephone Encounter - Mariza Erwin - 01/15/2024 12:05 PM EDT Called and spoke with patient. Scheduled for scans in 3 months. Mariza De Jesus [facility]04-[facility] Miscellaneous Notes* Telephone Encounter - Mariza Erwin - 01/15/2024 12:05 PM EDT Called and spoke with patient. Scheduled for scans in 3 months. Mariza De Jesus * Telephone Encounter - Lou Rincon - 01/08/2024 8:36 AM EDT Left message for patient to return call. When she calls, please advise of Brendon's message below. Lou Rincon * Telephone Encounter - Brendon Coppola APRN.COMPENSATION ASSOCIATE - 01/08/2024 8:17 AM EDT Please inform pt. that her LDH is normal so we will repeat her CT abd/pelvis in 3 months. Thank you. Brendon Coppola APRN.LEONCIO documented in this encounterWexner Medical Center04-19-2024 Miscellaneous Notes* Telephone Encounter - Anel Schuster MA - 01/09/2024 9:07 AM EDT Fax from pharmacy needs dose clarification on zoloft. Please resend with correct dose instructions Anel Schuster MA documented in this encounterWexner Medical Center04-18-2024 Telephone encounter Note * Telephone Encounter - Lou Rincon - 01/08/2024 8:36 AM EDT Left message for patient to return call. When she calls, please advise of Brendon's message below. Lou Rincon [facility]04-[facility] Telephone encounter Note* Telephone Encounter - Brendon Coppola APRN.CNP - 01/08/2024 8:17 AM EDT Please inform pt. that her LDH is normal so we will repeat her CT abd/pelvis in 3 months. Thank you. Brendon Coppola APRN.LEONCIO [facility]04-17[facility] History of Present illness Narrative* Sylvia Lizama [...] Rash, GI Upset Urticarial rash, seen in [place] ER Latex Swelling Lisinopril Swelling Nafcillin Itching [...] Heart Father other (Other) Father Heart Brother ND, aneurysm Migraines Daughter Macular Degen Maternal Aunt [...] of zoloft and prn. documented in this encounterWexner Medical Center04-12-2024 Miscellaneous Notes* Telephone Encounter - Brendon Coppola APRN.CNP - 01/02/2024 12:35 PM EDT Done. Brendon Coppola APRN.CNP * Telephone Encounter - Lou Rincon - [...] 12:[address]'s with Dr. Suggs. Please advise pt. that we need more labs: CBC/CMP and an LDH. Thank you. Brendon Coppola APRN.LEONCIO documented in this encounterWexner Medical Center04-12-2024 Telephone encounter Note * Telephone Encounter - Brendon Coppola APRN.CNP - 01/02/2024 12:22 PM EDT Spoke with pt. See other phone note today regarding labs needed. Brendon Copploa APRN.LEONCIO [facility] Work Phone: 1(992) 842-954104-12-2024 Miscellaneous Notes* Telephone Encounter - Brendon Coppola APRN.CNP - 01/02/2024 12:22 PM EDT Spoke with pt. See other phone note today regarding labs needed. Brendon Coppola APRN.LEONCIO * Telephone Encounter - María Elena Louis - 12/30/2023 10:03 AM EDT Patient is requesting a call from clinical to explain the 3 CT results to her. documented in this encounterWexner Medical Center04-09-2024 Telephone encounter Note * Telephone Encounter - María Elena Louis - 12/30/2023 10:03 AM EDT Patient is requesting a call from clinical to explain the 12/23 CT results to her. [facility] Work Phone: 1(888) 857-811104-03-2024 History of Present illness Narrative* Reef Dannielle Ventura, RT(R) - 12/24/2023 11:20 AM EDT Radiology [...] PATIENT PRESENTS WITH AN IMPLANTABLE OR ATTACHED FIELD SERVICE TECHNICIAN: No ALLERGIES: Reviewed and unchanged CONTRAST ALLERGY: [...] 2023 TIME: 2:20 PM documented in this encounterWexner Medical Center02-18-2024 Miscellaneous Notes* Telephone Encounter - Harmony Castillo LPN - 11/09/2023 1:33 PM EST Patient given results and verbalized understanding of instructions given. Harmony Castillo LPN * Telephone Encounter - Kimberly Altamirano APRN.CNP - 11/09/2023 1:23 PM EST Please call patient and let her know that the ultrasound came back normal there were no acute findings patient should follow-up with primary care. documented in this encounterWexner Medical Center02-16-2024 History of Present illness Narrative* Elida Desir, JAY - 11/07/2023 10:45 AM EST Radiology Service [...] PATIENT PRESENTS WITH AN IMPLANTABLE OR ATTACHED FIELD SERVICE TECHNICIAN: No RADIOLOGY DEPARTMENT: Ultrasound PERIPHERAL IV DATA: Not applicable SIGNED BY: Elida Desir RDMS [facility] November 07, 2023 11:06 AM documented in this encounterWexner Medical Center02-14-2024 History of Present illness Narrative* Darrian Key, SANDEEP - 2023 2:42 PM EST This note was created using Scannxter. Subjective Lisa Up is a 78 year [...] NEISHA VAGINAL HYSTERECTOMY ALLERGIES Covid-19 Vaccine, Mrna, [id number], Lnp-S (Moderna); Adhesive; Erythromycin; Latex; Lisinopril; Nafcillin; [...] Heart Father other (Other) Father Heart Brother ND, aneurysm Migraines Daughter Macular Degen Maternal Aunt [...] ER evaluation. SANDEEP Goff documented in this encounterWexner Medical Center02-05-2024 History of Present illness Narrative* Sathya Rajan [...] Rash, GI Upset Urticarial rash, seen in [place] ER Latex Swelling Lisinopril Swelling Nafcillin Itching [...] recheck. Sathya Rajan MD documented in this encounterWexner Medical Center12-12-2023 Instructions* Patient Instructions* Franklyn Juares MD - 09/02/2023 9:04 AM EST Continue: Systane Complete solution instill 1 drop 3 times daily Both Eyes. If you have any questions please contact our office at [phone]. After office hours or on the weekend, please call Dr. Juares on his cell phone at [phone]. documented in this encounterWexner Medical Center12-12-2023 History of Present illness Narrative* Franklyn Juares [...] an appointment to see Dr. Hollins at [facility] in [place] on 09/08/2023 for refraction and glasses. If [...] diagnosis, and treatment options. documented in this encounterWexner Medical Center12-04-2023 Instructions* Patient Instructions* Franklyn Juares MD - 08/25/2023 11:56 AM EST Systane Complete Artificial Tears - Use 1 Drop into both eyes three times a day. documented in this encounterWexner Medical Center12-04-2023 History of Present illness Narrative* Franklyn Juares [...] ICD10: H25.813 - Patient recommended to see legal executive assistant for updated refraction, if no improvement patient [...] options. Franklyn Juares MD documented in this encounterWexner Medical Center11-03-2023 Miscellaneous Notes* Telephone Encounter - Talia Silver LPN - 07/25/2023 3:54 PM EDT Faxed as requested. * Telephone Encounter - Lou Purvis RN - 07/25/2023 12:06 PM EDT Patient calls and states that she needs new orders for CPAP supplies to be faxed to [facility]. oLu Purvis RN documented in this encounterWexner Medical Center10-17-2023 Miscellaneous Notes* Letter - Coordinator, Mammography - 07/08/2023 4:21 PM EDT July 09, 2023 PID: [id number] Lisa Randi Annel [address] [place] [address] Dear Ms. Up, We are pleased to [...] report will [facility] medical [facility] and are available for your continuing care. Thank you for allowing us to help in meeting your health care needs. Sincerely, Dr. Peterson Interpreting Radiologist [facility] (Normal over 40) documented in this encounterWexner Medical Center10-17-2023 History of Present illness Narrative* Sylvia Lizama [...] Wondering about pain management? Saw previously in [place] for back and legs. Her shoulder is [...] Rash, GI Upset Urticarial rash, seen in [place] ER Latex Swelling Lisinopril Swelling Nafcillin Itching [...] Heart Father other (Other) Father Heart Brother ND, aneurysm Migraines Daughter Macular Degen Maternal Aunt [...] ICD10: E03.9 LEVOTHYROXINE 75 MCG TABLET 11. correction current use of anticoagulant therapy - ICD9: V58.61, ICD10: Z79.01 - remains on treatement. 12. Valvular heart disease - ICD9: 424.90, ICD10: I38 - check echo. - ECHO Sylvia Lizama MD documented in this encounterWexner Medical Center10-17-2023 History of Past illness Narrative* Problem Noted [...] Overview: Added automatically from request for surgery [id number] Lumbar spondylosis 07/18/2017 Overview: Added automatically from request for surgery [id number] Chronic bilateral low back p ain with bilateral sciatica 04/28/2017 11/27/2022 Overview: Added automatically from request for surgery [id number] Obesity due to excess calori es, unspecified [...] of this encounter (statuses as of 07/09/2023) [facility] of Past illness Narrative* Problem Noted [...] Overview: Added automatically from request for surgery [id number] Lumbar spondylosis 07/18/2017 Overview: Added automatically from request for surgery [id number] Chronic bilateral low back p ain with bilateral sciatica 04/28/2017 11/27/2022 Overview: Added automatically from request for surgery [id number] Obesity due to excess calori es, unspecified [...] of this encounter (statuses as of 07/10/2023) [facility] of Past illness Narrative* Problem Noted [...] Overview: Added automatically from request for surgery [id number] Lumbar spondylosis 07/18/2017 Overview: Added automatically from request for surgery [id number] Chronic bilateral low back p ain with bilateral sciatica 04/28/2017 11/27/2022 Overview: Added automatically from request for surgery [id number] Obesity due to excess calori es, unspecified [...] of this encounter (statuses as of 07/26/2023) [facility] of Past illness Narrative* Problem Noted [...] Overview: Added automatically from request for surgery [id number] Lumbar spondylosis 07/18/2017 Overview: Added automatically from request for surgery [id number] Chronic bilateral low back p ain with bilateral sciatica 04/28/2017 11/27/2022 Overview: Added automatically from request for surgery [id number] Obesity due to excess calori es, unspecified [...] of this encounter (statuses as of 07/27/2023) [facility] of Past illness Narrative* Problem Noted [...] Overview: Added automatically from request for surgery [id number] Lumbar spondylosis 07/18/2017 Overview: Added automatically from request for surgery [id number] Chronic bilateral low back p ain with bilateral sciatica 04/28/2017 11/27/2022 Overview: Added automatically from request for surgery [id number] Obesity due to excess calori es, unspecified [...] of this encounter (statuses as of 08/25/2023) [facility] of Past illness Narrative* Problem Noted [...] Overview: Added automatically from request for surgery [id number] Lumbar spondylosis 07/18/2017 Overview: Added automatically from request for surgery [id number] Chronic bilateral low back p ain with bilateral sciatica 04/28/2017 11/27/2022 Overview: Added automatically from request for surgery [id number] Obesity due to excess calori es, unspecified [...] of this encounter (statuses as of 09/02/2023) [facility] of [facility] illness Narrative* Problem Noted [...] Overview: Added automatically from request for surgery [id number] Lumbar spondylosis 07/18/2017 Overview: Added automatically from request for surgery [id number] Chronic bilateral low back p ain with bilateral sciatica 04/28/2017 11/27/2022 Overview: Added automatically from request for surgery [id number] Obesity due to excess calori es, unspecified [...] of this encounter (statuses as of 10/27/2023) [facility] illness Narrative* Problem Noted [...] Overview: Added automatically from request for surgery [id number] Lumbar spondylosis 07/18/2017 Overview: Added automatically from request for surgery [id number] Chronic bilateral low back p ain with bilateral sciatica 04/28/2017 11/27/2022 Overview: Added automatically from request for surgery [id number] Obesity due to excess calori es, unspecified [...] of this encounter (statuses as of 2023) [facility] illness Narrative* Problem Noted [...] Overview: Added automatically from request for surgery [id number] Lumbar spondylosis 07/18/2017 Overview: Added automatically from request for surgery [id number] Chronic bilateral low back p ain with bilateral sciatica 04/28/2017 11/27/2022 Overview: Added automatically from request for surgery [id number] Obesity due to excess calori es, unspecified [...] of this encounter (statuses as of 11/08/2023) [facility] illness Narrative* Problem Noted [...] Overview: Added automatically from request for surgery [id number] Lumbar spondylosis 07/18/2017 Overview: Added automatically from request for surgery [id number] Chronic bilateral low back p ain with bilateral sciatica 04/28/2017 11/27/2022 Overview: Added automatically from request for surgery [id number] Obesity due to excess calori es, unspecified [...] of this encounter (statuses as of 11/09/2023) [facility] Narrative* Problem Noted [...] Overview: Added automatically from request for surgery [id number] Lumbar spondylosis 07/18/2017 Overview: Added automatically from request for surgery [id number] Chronic bilateral low back p ain with bilateral sciatica 04/28/2017 11/27/2022 Overview: Added automatically from request for surgery [id number] Obesity due to excess calori es, unspecified [...] of this encounter (statuses as of 12/25/2023) [facility] Narrative* Problem Noted [...] Overview: Added automatically from request for surgery [id number] Lumbar spondylosis 07/18/2017 Overview: Added automatically from request for surgery [id number] Chronic bilateral low back p ain with bilateral sciatica 04/28/2017 11/27/2022 Overview: Added automatically from request for surgery [id number] Obesity due to excess calori es, unspecified [...] of this encounter (statuses as of 12/25/2023) [facility] Narrative* Problem Noted [...] Overview: Added automatically from request for surgery [id number] Lumbar spondylosis 07/18/2017 Overview: Added automatically from request for surgery [id number] Chronic bilateral low back p ain with bilateral sciatica 04/28/2017 11/27/2022 Overview: Added automatically from request for surgery [id number] Obesity due to excess calori es, unspecified [...] of this encounter (statuses as of 01/02/2024) [facility] Narrative* Problem Noted [...] Overview: Added automatically from request for surgery [id number] Lumbar spondylosis 07/18/2017 Overview: Added automatically from request for surgery [id number] Chronic bilateral low back p ain with bilateral sciatica 04/28/2017 11/27/2022 Overview: Added automatically from request for surgery [id number] Obesity due to excess calori es, unspecified [...] of this encounter (statuses as of 01/08/2024) [facility] Narrative* Problem Noted [...] Overview: Added automatically from request for surgery [id number] Lumbar spondylosis 07/18/2017 Overview: Added automatically from request for surgery [id number] Chronic bilateral low back p ain with bilateral sciatica 04/28/2017 11/27/2022 Overview: Added automatically from request for surgery [id number] Obesity due to excess calori es, unspecified [...] of this encounter (statuses as of 01/09/2024) [facility] of Present illness Narrative* Noel Guadarrama [...] 08, 2023 11:47 AM documented in this encounterWexner Medical Center09-22-2023 History of Present illness Narrative* Prince Fang [...] N/A 12/04/2016 ESOPHAGOGASTRODUODENOSCOPY TRANSORAL DIAGNOSTIC N/A 12/04/2016 PILOT KNOB FILTER 2018 INSJ TUNNELED CTR VAD W/SUBQ [...] Heart Father other (Other) Father Heart Brother ND, aneurysm Migraines Daughter Macular Degen Maternal Aunt Social History Tobacco Use Smoking status: Never Smokeless tobacco: Never Vaping Use Vaping Use: Never used Substance Use Topics Alcohol use: No Drug use: No ALLERGIES: ALLERGIES Allergen Reactions Adhesive Rash Blisters and dermatitis from op site dressing and tape Covid-19 Vaccine, M* Anaphylaxis Erythromycin Rash, GI Upset Urticarial rash, seen in [place] ER Latex Swelling Lisinopril Swelling Nafcillin Itching [...] which included preparing to see the patient, tqko-ts-sngq patient care, completing clinical documentation, obtaining and/or reviewing separately obtained history, performing a medically appropriate examination, ordering medications, tests, or procedures, independently interpreting results (not separately reported), and communicating resultsto the patient/family/caregiver. Electronically Signed: Prince Fang MD June 13, 2023 10:16 AM documented in this encounterWexner Medical Center09-15-2023 History of Present illness Narrative* Vy Duong RN - 06/06/2023 11:[address] contrast dye to pt after flushing power port with 10ml of Normal saline. Once CT completed flushed power port with 20ml of normal saline and 5ml of Heparin flush. After flushing removed power port needle and covered with 2x2 and paper tape. Pt tolerated well. Vy Duong Rn documented in this encounterWexner Medical Center09-15-2023 History of Present illness Narrative* Dannielle Doll RT(Barbra) - 06/06/2023 10:20 AM EDT Radiology Service [...] PERIPHERAL IV DATA: power port accessed by [employer] SIGNED BY: RT Blanca(R) June 06, 2023 3:57 PM documented in this encounterWexner Medical Center09-14-2023 Miscellaneous Notes* Telephone Encounter - Lou Rincon - 06/05/2023 11:01 AM EDT Spoke with patient and scheduled. Lou Rincon * Telephone Encounter - Azalea Link PSS - 06/05/2023 10:50 AM EDT Pt would like to use port for appt on 06/06/[address] @ 9:20 oral / 10:20 scan Please call pt to confirm thank documented in this encounterWexner Medical Center08-22-2023 History of Present illness Narrative* Abdullahi Guerra, [...] 1148 Abdullahi Guerra PT documented in this encounterWexner Medical Center08-18-2023 History of Present illness Narrative* Abdullahi Guerra [...] 1341 Abdullahi Guerra PT documented in this encounterWexner Medical Center08-15-2023 History of Present illness Narrative* Abdullahi Guerra [...] LENCHO Vargas PT, DPT. documented in this encounterWexner Medical Center08-08-2023 History of Present illness Narrative* Abdullahi Guerra [...] : 1400 Session Stop Time : 1445 LENCHO Vargas PT, DPT. documented in this encounterWexner Medical Center08-04-2023 History of Present illness Narrative* Abdullahi Guerra PT - 04/25/2023 10:27 AM EDT Episode [...] : 1020 Session Stop Time : 1104 LENCHO Vargas PT, DPT. documented in this encounterWexner Medical Center07-28-2023 History of Present illness Narrative* Mercy Lemus [...] Heart Father other (Other) Father Heart Brother ND, aneurysm Migraines Daughter Macular Degen Maternal Aunt [...] (CRP) Mercy Lemus PA-C documented in this encounterWexner Medical Center07-27-2023 Miscellaneous Notes* Telephone Encounter - Danielle Gregory [...] to request scripts that were sent to [facility] be sent to [facility]. Pended per request. Danielle Gregory RN documented in this encounterWexner Medical Center07-27-2023 Instructions* Patient Instructions* Mercy Lemus PA-C - 04/17/2023 4:12 PM EDT Try tizanidine 4mg 1/2 tablet for pain Prednisone as directed. Ice/ moist heat, lineaments, OTC analgesics as needed. 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 07/18/2017 11/27/2022 Overview: Added automatically from request for surgery [id number] Lumbar spondylosis 07/18/2017 Overview: Added automatically from request for surgery [id number] Chronic bilateral low back p ain with bilateral sciatica 04/28/2017 11/27/2022 Overview: Added automatically from request for surgery [id number] Obesity due to excess calori es, unspecified [...] of this encounter (statuses as of 07/27/2023) [facility] of Past illness Narrative* Problem Noted [...] Overview: Added automatically from request for surgery [id number] Lumbar spondylosis 07/18/2017 Overview: Added automatically from request for surgery [id number] Chronic bilateral low back p ain with bilateral sciatica 04/28/2017 11/27/2022 Overview: Added automatically from request for surgery [id number] Obesity due to excess calori es, unspecified [...] of this encounter (statuses as of 07/27/2023) [facility] of Present illness Narrative* Suad Joe RT(R) - 04/03/2023 10:20 AM EDT Radiology [...] 03, 2023 10:18 AM documented in this encounterWexner Medical Center07-13-2023 History of Present illness Narrative* Sylvia Lizama [...] Wondering about pain management? Saw previously in [place] for back and legs. Her shoulder is [...] Rash, GI Upset Urticarial rash, seen in [place] [facility] Latex Swelling Lisinopril Swelling Nafcillin Itching [...] N/A 12/04/2016 ESOPHAGOGASTRODUODENOSCOPY TRANSORAL DIAGNOSTIC N/A 12/04/2016 PILOT KNOB FILTER 2019 INSJ TUNNELED CTR VAD W/SUBQ [...] Heart Father other (Other) Father Heart Brother ND, aneurysm Migraines Daughter Macular Degen Maternal Aunt [...] CAPSULE Sylvia Lizama MD documented in this encounterWexner Medical Center07-05-2023 Miscellaneous Notes* Telephone Encounter - Christina Javed [...] has any questions. Thank you. Elissa Felipe APRN.CNP documented in this encounterWexner Medical Center07-03-2023 Instructions* Patient Instructions* Elissa Felipe APRN.CNP - 03/24/2023 11:24 AM EDT Get xray completed. Continue supportive care at home, Tylenol 650-1000 mg Every 6-8 hours as needed for pain, ice, heat, gentle stretching. May use muscle relaxant as needed for muscle tension. Do not take with pepcid. Follow up documented in this encounterWexner Medical Center07-03-2023 History of Present illness Narrative* Elissa Felipe [...] VAGINAL HYSTERECTOMY ALLERGIES Adhesive; Covid-19 Vaccine, Mrna, [id number], Lnp-S (Moderna); Erythromycin; Latex; Lisinopril; Nafcillin; Nifedipine; [...] Heart Father other (Other) Father Heart Brother ND, aneurysm Migraines Daughter Macular Degen Maternal Aunt [...] APRN.LEONCIO This note was partially generated using [employer] voice recognition system. Note was reviewed for accuracy. There may be minor misspellings or grammar miscues with [employer] voice recognition. documented in this encounterWexner Medical Center06-02-2023 Miscellaneous Notes* Telephone Encounter - Talia Silver LPN - 02/21/2023 3:00 PM EDT Patient notified and verbalizes understanding. * Telephone Encounter - Sylvia Lizama MD - 02/21/2023 2:46 PM EDT Usually dental procedures are a lower bleeding risk. Stop day before and day of. Resume day after if no issues. * Telephone Encounter - Glo oLw LPN - 02/21/2023 2:28 PM EDT Patient calling she is to have a bad tooth pulled on Monday 02/26 and she is taking Elquis 5 mg twice daily. Patient asking if she needs to stop taking the eliquis prior to tooth removal? Please advise documented in this encounterWexner Medical Center06-02-2023 History of Present illness Narrative* Franklyn Juares [...] options. Franklyn Juares MD documented in this encounterWexner Medical Center04-12-2023 Miscellaneous Notes* Telephone Encounter - Chinyere Shea [...] protocol. Chinyere Shea RN documented in this encounterWexner Medical Center04-05-2023 Miscellaneous Notes* Telephone Encounter - Gini Ayala APRN.CNP - 12/25/2022 4:41 PM EDT See office notes. Gini Ayala APRN.CNP * Telephone Encounter - Tima Benavides RN - 12/25/2022 10:11 AM EDT Protocol recommends see provider in 4 hours. Pt scheduled with Gini Ayala TOUR ACTOR today at 11 am. Care plan reviewed [...] Postmenopausal. Protocols used: Blister - Foot and Spje-XIQKJ-VA, Rash or Redness - Upkvdtspud-ERVKQ-JK, Rash - Widespread On Fivjn-DSZQN-LL documented in this encounterWexner Medical Center04-05-2023 Instructions* Patient Instructions* Gini Ayala APRN.CNP - 12/25/2022 11:42 AM EDT Stop the nifedipine. Start the triamcinolone ointment as needed to the rash. Start the bactroban to the face (mupirocin) Recheck in 1-2 weeks. Let us know if not improving or worsening. documented in this encounterWexner Medical Center04-05-2023 Miscellaneous Notes* Telephone Encounter - Talia Silver [...] she willing to do. documented in this encounterWexner Medical Center04-05-2023 History of Present illness Narrative* Gini Ayala APRN.CNP - 12/25/2022 10:55 AM EDT This is [...] VAGINAL HYSTERECTOMY ALLERGIES Adhesive; Covid-19 Vaccine, Mrna, [id number], Lnp-S (Moderna); Erythromycin; Latex; Lisinopril; Nafcillin; Norvasc [...] Heart Father other (Other) Father Heart Brother ND, aneurysm Migraines Daughter Macular Degen Maternal Aunt [...] as needed for worsening/no improvement. Gini Ayala APRN.COMPENSATION ASSOCIATE documented in this encounterWexner Medical Center03-30-2023 Miscellaneous Notes* Telephone Encounter - Heaven Sykes [...] change prior to scheduling. documented in this encounterWexner Medical Center03-28-2023 History of Present illness Narrative* Anca Almonte [...] Rash, GI Upset Urticarial rash, seen in [place] ER Latex Swelling Lisinopril Swelling Nafcillin Itching [...] cc: Anca Lizama MD documented in this encounterWexner Medical Center03-28-2023 History of Present illness Narrative* Stevie Tsai - 12/17/2022 11:56 AM EDT Sleep Study Check-In Documentation Date: December 17, 2022 Name: Lisa Up Comments: HST was returned in working order with all sleep questionnaires Stevie Tsai * Destiny Zuniga MD - 12/12/2022 [...] Spinal stenosis, lumbar 09/22/2015 Dr. Ramírez, severe The medical record was reviewed to determine [...] Zuniga MD 4:44 PM, 12/12/2022 * Estefany Stacy PSS - 12/12/2022 3:13 PM EDT Awaiting protocol and signature Nomad: [id number] Date: 12/12/22 [employer] Mailout Tracking Number: [id number] [employer] Return Tracking Number: [id number] * Estefany HUBER - 12/12/2022 3:13 PM EDT December 12, 2022 An order has been received for Home Sleep Apnea Test (HSAT) from lizy Mendez. [facility] Staff. Visit prep complete. Comments :No The sleep study is scheduled for 12/12/22 . Insurance: Payor: MEDICARE / Plan: MEDICARE A AND B / Product Type: Medicare / Payer/Plan Subscr Sex Relation Sub. Ins. ID Effective Group Num 1. MEDICARE - [place]* LISA UP 1945 Female Self [id number] 10[birth year]08 [address] [facility]* LISA UP 1945 Female Self [id number] 09/[birth year]17 [address] Estefany Stacy PSS documented in this encounterWexner Medical Center03-20-2023 Instructions* Patient Instructions* Sylvia Lizama MD - 12/09/2022 3:55 PM EDT My chart bp in two weeks. documented in this encounterWexner Medical Center03-20-2023 History of Present illness Narrative* Sylvia Lizama [...] in PM (50 mg tablets are from 2015) Carvedilol 12.5 mg tab twice daily Not [...] Rash, GI Upset Urticarial rash, seen in [place] ER Latex Swelling Lisinopril Swelling Nafcillin Itching [...] Heart Father other (Other) Father Heart Brother ND, aneurysm Migraines Daughter Macular Degen Maternal Aunt [...] 24 HR Sylvia Lizama documented in this encounterWexner Medical Center03-20-2023 Nurse Note* Talia Silver LPN - 12/09/2022 3:25 PM EDT 12/09/2022: Home BP Cuff Validated. Home BP: 189/98 Office BP: 182/82 documented in this encounterWexner Medical Center03-20-2023 History of Present illness Narrative* Dannielle Doll RT(R) - 12/09/2022 11:00 AM EDT Radiology [...] 09, 2022 3:53 PM documented in this encounterWexner Medical Center03-08-2023 History of Present illness Narrative* Sylvia Lizama MD - 11/27/2022 8:48 AM EST Patient presents with: Hypertension: Follow up HPI: Patient presents today for office visit for follow up for blood pressure. Saw Josse Lemus on 11/07/22 for concerns of elevated blood [...] in PM (50 mg tablets are from 2015) Carvedilol 12.5 mg tab twice daily Not [...] Rash, GI Upset Urticarial rash, seen in [place] [facility] Latex Swelling Lisinopril Swelling Nafcillin Itching [...] Heart Father other (Other) Father Heart Brother ND, aneurysm Migraines Daughter Macular Degen Maternal Aunt [...] CULTURE Sylvia Lizama MD documented in this encounterWexner Medical Center03-06-2023 History of Present illness Narrative* Anca Almonte [...] She had CR on at least excellent CO after 2 cycles. She believes was told after completion of 3 cycles that she will not get any further chemotherapy. She had 1 4 weeks ago and apparently in the treatment area there was an impression to continue for6-8 cycles Patient also was given allopurinol to prevent tumor lysis which has been maintained till currently even after a documented CR or excellent CO with completion of 2 cycles. She was [...] Rash, GI Upset Urticarial rash, seen in [place] ER Latex Swelling Lisinopril Swelling Nafcillin Itching [...] cc: Melba Lizama MD documented in this encounterWexner Medical Center03-06-2023 Instructions* Patient Instructions* Anca Almonte MD - 11/25/2022 12:18 PM EST Stop allopurinol and increase gabapentin to 300 mg. Three times a day documented in this encounterWexner Medical Center03-02-2023 Miscellaneous Notes* Telephone Encounter - LUZ MARIA [...] and is looking forward to going to restorationist this Friday. She reports she regularly speaks [...] in Care Team tab: Yes Assessment Completed IESHA Murray documented in this encounterWexner Medical Center02-27-2023 Miscellaneous Notes* Telephone Encounter - Bernadette Uribe MA - 11/18/2022 9:40 AM EST [...] to pharmacy. No need to notify patient. Bernadette Uribe MA documented in this encounterWexner Medical Center02-27-2023 Miscellaneous Notes* Telephone Encounter - Bernadette Uribe MA - 11/18/2022 9:24 AM EST Patient has been identified by name and date of : Yes Requested Prescriptions Pending Prescriptions Disp Refills carvedilol (COREG) 25 mg tablet 30 tablet 5 Sig: Take 1 tablet by mouth twice daily. RX INSTRUCTIONS: Patient aware RX will be sent to pharmacy. No need to notify patient. Bernadette Uribe MA documented in this encounterWexner Medical Center02-22-2023 Miscellaneous Notes* Telephone Encounter - Chinyere Shea [...] Shea RN * Telephone Encounter - César Suggs DO - 11/12/2022 6:53 PM EST I reviewed her chart. She was given a prescription for [address] Escudero last June. Did that help with her headache? Hair loss can be related to the chemotherapy. Perhaps she could asked Dr. Lizama to run some other test such as checking thyroid function to see if other causes for hairloss. César Suggs DO * Telephone Encounter - Chinyere Shea [...] Telephone Encounter - Sera Benoit Pss - 11/12/2022 12:00 PM EST Patient is requesting a nurse return her call as she has questions regarding her hair loss, not feeling well and bowels issues documented in this encounterWexner Medical Center02-16-2023 History of Present illness Narrative* Mercy Lemus [...] in PM (50 mg tablets are from 2015) Carvedilol 12.5 mg tab twice daily Not [...] when starting chemo August. 10/28/2022 note Brendon Coppola COMPENSATION ASSOCIATE: HTN/ CVD Cardiovascular interval hx: 05/19/2021 echocardiogram [...] 2.1 cm. No significant valvular disease. 08/14/2020 [facility] pharmacologic myocardial perfusion stress test: Dr. Bee:: [...] Date: BP: 11/07/2022 166/88 10/30/2022 169/69 10/29/2022 168/67[TOUR ACTOR aware[ 10/28/2022 168/84 10/03/2022 158/84 10/02/2022 169/81 10/01/2022 194/76[pt states she did not take her BP meds this AM[ 09/30/2022 163/82 09/03/2022 158/81 09/02/2022 185/94[Dr. Kena aware[ 08/30/2022 145/74 07/23/2022 110/61 06/28/2022 153/59 [...] 4.00 k/uL 1.33 0.43 (L) 0.66 (L) Garland% % 10.9 12.8 10.5 Abs Garland <0.87 k/uL 0.47 0.42 0.43 Eosin% % [...] Heart Father other (Other) Father Heart Brother ND, aneurysm Migraines Daughter Macular Degen Maternal Aunt [...] Peak Flow Date and Time PF Resp 11/07/22 1320 -- 20 On sitting from lying was [...] weeks. Mercy Lemus PA-C documented in this encounterWexner Medical Center02-13-2023 Miscellaneous Notes* Telephone Encounter - Sara Lindsay - 11/04/2022 2:31 PM EST Spoke with patient and relayed message. Patient verbalized understanding. Refused appointment this week due to recently having a chemo treatment and is weak. Wanted Dr. Lizama's first available. Scheduled for 11/18/22. Sara Lindsay * Telephone Encounter - Gini Ayala APRN.CNP - 11/04/2022 1:07 PM EST I'm sorry, but she needs a jfar-yw-jpmb appt. We haven't seen her in over [...] was prescribed by Brittanie Mckeon Np, in 2015. Advised patient the medication is and probably not working. Reports she is also taking coreg 12.5 mg twice daily. Reports she has a dull ROBIN, and dizziness that comes and goes, but [...] agreeable. Please advise patient. documented in this encounterWexner Medical Center02-06-2023 History of Present illness Narrative* Brendon Coppola APRN.COMPENSATION ASSOCIATE - 10/28/2022 11:33 AM EST Chief Complaint [...] that 15% of total events have the JY92yrp side scatter properties of lymphocytes. Interpretation: The [...] visit. Brendon Coppola APRN.LEONCIO documented in this encounterWexner Medical Center01-24-2023 History of Present illness Narrative* Shawna Pederson RN - 10/15/2022 10:50 AM EST [facility] Enrollment Provider Action/FYI: - ckd, htn Patient referred by: [facility] Deyanira Contact made with patient: No - 2nd attempt to reach patient, left another message: Hi my name is Shawna Pederson RN and I am calling [facility] the [facility] on behalf of your PCP, Sylvia Lizama MD.We are excited to share with you a new program to help you manage your health. Please call me back at [phone]. I hope you can take the time to speak with me. (Keep encounter open for additional two business days in case patient calls back. Close encounter if no response by end of second business day) Closing: Could not reach the patient after two attempted outreaches. Conductor/Engineer to retry patient in one week. END OUTREACH * Shawna Pederson RN - 10/11/2022 5:25 PM EST [facility] Enrollment Provider Action/FYI: - ckd, htn Patient referred by: [facility] Deyanira Contact made with patient: No - Left Message: Hi my name is Shawna Pederson RN and I am calling [facility] the [facility] on behalf of your PCP, Sylvia Lizama MD. We are excited to share with you a new program to help you manage your health. Please call me back at [phone] between the hours of 8am-5pm Friday- Friday. You will receive another phone call from me within the next two business days.I hope you can take the time to speak with me. (Keep encounter open and attempt 2nd outreach in two business days from today) END OUTREACH documented in this encounterWexner Medical Center01-13-2023 Miscellaneous Notes* Telephone Encounter - Shannon Hui [...] Dr. Kena Hui RN documented in this encounterWexner Medical Center01-12-2023 Nurse Note* Ashley Beauchamp LPN - 10/03/2022 [...] noted. Ashley Beauchamp LPN documented in this encounterWexner Medical Center01-11-2023 Miscellaneous Notes* Telephone Encounter - Missy Peralta LPN - 10/02/2022 11:24 AM EST This patient has Medicare and does not need referral. Orders are in for 10/03/2022. Missy Peralta LPN * Telephone Encounter - DOREEN Roman - 10/02/2022 10:[address] beacon referral for scheduling. * Telephone Encounter - Lou Plascencia RN - 10/02/2022 8:16 AM EST Per Jean Marie in pharmacy- On Day 3 put on [...] receiving neulasta on . documented in this encounterWexner Medical Center01-10-2023 Miscellaneous Notes* Telephone Encounter - Lou Plascencia [...] as she gets home. documented in this encounterWexner Medical Center01-10-2023 History of Present illness Narrative* Edyta Whelan [...] all the aforementioned information presented. Time of Presentation:8.AM October 01, 2022 Edyta Whelan RN [phone] documented in this encounterWexner Medical Center01-03-2023 History of Present illness Narrative* Dannielle Doll [...] PERIPHERAL IV DATA: power port accessed by [employer] SIGNED BY: RT Blanca(R) September 24, 2022 11:22 AM documented in this encounterWexner Medical Center12-09-2022 History of Present illness Narrative* Melba Escudero MD - 08/30/2022 1:24 PM EST PATIENT NAME: Lisa Up. CLINIC NO: [id number]. ATTENDING PHYSICIAN: Melba Escudero MD. DATE OF [...] that 15% of total events have the TS54mea side scatter properties of lymphocytes. Interpretation: The [...] Abs Lymph 1.00 - 4.00 k/uL 1.33 Garland% % 10.9 Abs Garland <0.87 k/uL 0.47 Eosin% % 3.2 Abs [...] with more than 50% of the total evio-rh-zpxi time of the visit in counseling / coordination of care. Portions of this documentation were copied and pasted from previous office visit notes in order to provide a cohesive continuity of the history. The note has been reviewed and edited and updated as necessary. Melba Escudero MD Cc: Dr. Sylvia Lizama documented in this encounterWexner Medical Center11-30-2022 History of Past illness Narrative* Problem Noted [...] Overview: Added automatically from request for surgery [id number] Lumbar spondylosis 07/18/2017 Overview: Added automatically from request for surgery [id number] Chronic bilateral low back p ain with bilateral sciatica 04/28/2017 11/27/2022 Overview: Added automatically from request for surgery [id number] Obesity due to excess calori es, unspecified [...] of this encounter (statuses as of 07/27/2023) [facility] of Past illness Narrative* Problem Noted [...] Overview: Added automatically from request for surgery [id number] Lumbar spondylosis 07/18/2017 Overview: Added automatically from request for surgery [id number] Chronic bilateral low back p ain with bilateral sciatica 04/28/2017 11/27/2022 Overview: Added automatically from request for surgery [id number] Obesity due to excess calori es, unspecified [...] of this encounter (statuses as of 07/27/2023) [facility] of Past illness Narrative* Problem Noted [...] Overview: Added automatically from request for surgery [id number] Lumbar spondylosis 07/18/2017 Overview: Added automatically from request for surgery [id number] Chronic bilateral low back p ain with bilateral sciatica 04/28/2017 11/27/2022 Overview: Added automatically from request for surgery [id number] Obesity due to excess calori es, unspecified [...] of this encounter (statuses as of 07/27/2023) [facility] Miscellaneous Notes* Telephone Encounter - Gorge Melendrez [...] advise. Gorge Melendrez LPN documented in this encounterWexner Medical Center11-21-2022 Miscellaneous Notes* Telephone Encounter - Talia Silver LPN - 08/12/2022 12:00 PM EST Call to patient. She was hospitalized in [facility] for acute cholecystitis and discharged 08/04/22. PCP [...] has seen Dr Lizama.) documented in this encounterWexner Medical Center11-14-2022 Miscellaneous Notes* Telephone Encounter - Chinyere Shea [...] MD Notification Patient discharged on 08/04/22 from [facility] to Home, self care Primary Cancer Diagnosis: Follicular Lymphoma Admitting Diagnosis: Acute cholecystitis status postcholecystectomy 08/02/2022 Discharge Summary/SBAR reviewed: Yes Handoff Discussed with Transitional Conductor/Engineer: N/A Psychosocial Risk Factors: None If patient discharged to SNF/Rehab Facility, phone call completed to reinforce discharge instructions and follow up: N/A Call Disposition: Admission unrelated to cancer diagnosis/treatment Per Dr. Escudero, chemotherapy cancelled for this week and keep upcoming appointments as they are. Chinyere Shea RN documented in this encounterWexner Medical Center11-10-2022 Instructions* Patient Instructions* Melba Escudero MD - [...] serious illness Are taking any medications (prescription, kshh-eys-uvfepwe, vitamins, or herbal products) How will I receive EVUSHELD? EVUSHELD consists of two investigational medicines, tixagevimab and cilgavimab. You will receive 1 dose of EVUSHELD, consisting of 2 separate injections (tixagevimab and cilgavimab). EVUSHELD will be given to you by your healthcare provider as 2 intramuscular injections, given one after the other. Viruses can liner roll changer time (mutate) and develop into a [...] caused by certain SARS-CoV-2 variants: Viruses can liner roll changer time (mutate) and develop into a [...] treatment or prevention of COVID-19 go to https://www.fda.gov/fojacmkxf-dmcvhsucglmh-oba- response/mpy-yvzsc-zlocwijqyn-sup-kagjrh-ilejvckmq/oqzcjyreo-mve-kyvnkjmkofjcd for more information. It is your choice [...] not go away. Report side effects to [employer] MedWatch at www.fda.gov/medwatch or call 6-173-TUF-3034 or call Fugate.cl . Additional Information If you have questions, visit the website or call the telephone number provided below. Website Telephone number [email or web address] How can I learn more about COVID-19? Ask your healthcare provider. Visit https://www.cdc.gov/COVID19 Contact your local or state public health department. What is an Emergency Use Authorization? The [place] FDA has made EVUSHELD (tixagevimab co-packaged with cilgavimab) available under an emergency access mechanism called an Emergency Use Authorization EUA. The EUA is supported by a Reference Librarian of Health and Human Service (HHS) declaration [...] monohydrate, polysorbate 80, sucrose, water. Distributed by: [employer] [place] [place], [place] Manufactured for: [employer] [place] [employer] 2021. All rightsreserved. documented in this encounterWexner Medical Center11-10-2022 Miscellaneous Notes* Telephone Encounter - Melba Escudero MD - 08/01/2022 2:28 PM EST Evusheld (tixagevimab/cilgavimab) Eligibility and Patient Discussion [facility] Formulary Restriction Criteria: Outpatient adults and pediatrics 12 years and older and > 40 kg with ALL of the following: [x] COVID test scheduled: Yes Date: TBD, type of test:Laboratory collected [] Patient has not been exposed to a SARS-COV-2 positive individual ([facility] information on COVID exposure link) [x] Patient [...] 01, 2022 2:31 PM documented in this encounterWexner Medical Center11-09-2022 Miscellaneous Notes* Telephone Encounter - Chinyere Shea [...] update provider that she was admitted to [facility] yesterday for gallbladder issuesand is scheduled for gallbladder removal on Friday due to holding eliquis. Please advise patient onhow she will proceed with future appointments, documented in this encounterWexner Medical Center11-08-2022 Miscellaneous Notes* Telephone Encounter - Loli Huber - 07/30/2022 3:44 PM EST Completed. * [...] - 07/30/2022 1:49 PM EST Patient to [facility] ER this am for Epigastric pain lasting [...] for NHL. Vitals were BP of 181/86, CO of 77 and RR of 15; she [...] Dr. Kena Gonzalez M.D. documented in this encounterWexner Medical Center11-04-2022 Miscellaneous Notes* Telephone Encounter - DOREEN Roman [...] same day appointment:will discuss above with Dr. Kena, patient aware that I will call back [...] protocol. Chinyere Shea RN documented in this encounterWexner Medical Center11-01-2022 History of Present illness Narrative* Melba Escudero MD - 07/23/2022 10:23 AM EDT PATIENT NAME: Lisa Up. CLINIC NO: [id number]. ATTENDING PHYSICIAN: Melba Escudero MD. DATE OF [...] that 15% of total events have the SE91rkl side scatter properties of lymphocytes. Interpretation: The [...] Lymph 1.00 - 4.00 k/uL 0.37 (L) Garland% % 7.0 Abs Garland <0.87 k/uL 0.23 Eosin% % 9.1 Abs [...] with more than 50% of the total otqg-jv-upuq time of the visit in counseling / coordination of care. Portions of this documentation were copied and pasted from previous office visit notes in order to provide a cohesive continuity of the history. The note has been reviewed and edited and updated as necessary. Melba Escudero MD Cc: Dr. Sylvia Lizama documented in this encounterWexner Medical Center11-01-2022 Instructions* Patient Instructions* Melba Escudero MD - 07/23/2022 10:17 AM EDT Check temperature when you have chills Call for Temp > 101 or 100.4 x 2 (1 hour apart) documented in this encounterWexner Medical Center10-24-2022 History of Present illness Narrative* LUZ MARIA [...] Mother and father are Child/Children: Yes. healthcare consulting manager arrangements needed: No Siblings: Yes Grandchild(boo): > 5 Home Health Provider: No Community Services: No Viviane Identified: Yes Latter-Day/Spirituality: Jainism Are these practices or beliefs that may affect or influence treatment? 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 No Financial Distress: No [place]: No FOOD INSECURITY Within the past year, [...] patient to review Scanned into EPIC: No Health Care Durable Power of Poultry Service Technician: No and provided POA information for patient [...] needed. Follow up appointment with SW in: LUZ MARIA Khan-Roshan documented in this encounterWexner Medical Center10-17-2022 Miscellaneous Notes* Telephone Encounter - Chinyere Shea [...] protocol. Chinyere Shea RN documented in this encounterWexner Medical Center10-11-2022 Miscellaneous Notes* Telephone Encounter - Chinyere Shea [...] uses Tylenol but doesn't help much. Has Wilkinson but only uses on occasion. Denies any [...] provided. Chinyere Shea RN documented in this encounterWexner Medical Center10-06-2022 Miscellaneous Notes* Telephone Encounter - Melba Escudero MD - 06/27/2022 1:11 PM EDT Patient's request for medication is as follows Requested Prescriptions Signed Prescriptions Disp Refills ZOLMitriptan (ZOMIG) 5 mg tablet 3 tablet 0 Sig: Take 1 tablet by mouth as needed. Authorizing Provider: MELBA ESCUDERO Order entered - please phone pharmacy and notify patient. Melba Escudero MD documented in this encounterWexner Medical Center10-06-2022 Miscellaneous Notes* Telephone Encounter - Melba Escudero MD - 06/27/2022 12:23 PM EDT Is this a throbbing headache like migraine or cluster headaches? Can she try Zomig 5 mg daily as needed instead and stop hydralazine? Continue Wilkinson as needed for pain or headaches. Continue Neurontin. Melba Escudero MD * Telephone Encounter - Lou Plascencia RN - 06/27/2022 11:55 AM EDT Pt had Ov with Dr. Suggs and was advised to stop taking the [...] med altogether. Please advise. documented in this encounterWexner Medical Center09-28-2022 History of Present illness Narrative* César Suggs, DO - 06/19/2022 10:34 AM EDT DIAGNOSIS: [...] Abs Lymph 1.00 - 4.00 k/uL 1.82 Garland% % 8.1 Abs Garland <0.87 k/uL 0.43 Eosin% % 5.2 Abs [...] that 15% of total events have the FQ84zbe side scatter properties of lymphocytes. Interpretation: The [...] and test results and coordinating care. César Suggs DO Cc: Dr. Sylvia Crowder documented in this encounterWexner Medical Center09-20-2022 History of Present illness Narrative* Reta Hollis LPN - 06/11/2022 10:43 AM EDT Patient here for prevnar 20 and flu high dose vaccine. Tolerated injection well. 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 The patient needed fpc IV access for treatment. Dr. Crowder performed [...] (primary encounter diagnosis) (Z95.828) Port-A-Cath in place Tmia Peterson PA-C documented in this encounterWexner Medical Center09-19-2022 Instructions* Patient Instructions* Tima Peterson PA-C - [...] if any worsening symptoms documented in this encounterWexner Medical Center09-19-2022 Miscellaneous Notes* Telephone Encounter - Viv Lo RN - 06/10/2022 12:56 PM EDT Lisa is scheduled for today with SANDEEP Headley at 1530. Viv Lo RN * Telephone Encounter - Viv Lo RN - 06/10/2022 12:32 PM EDT Attempted to call Lisa ([phone]) no answer and her voicemail box is [...] what she should do. documented in this encounterWexner Medical Center09-14-2022 NoteHNO ID: [id number] Author: Elida Dodd RN Service: Nursing Author Type: Registered Nurse Type: Nursing Progress Note Filed: 06/05/2022 12:01 PM Note Text: Other: pt ready for OR, call light in reach, daughter called to [facility]09-09-2022 Miscellaneous Notes* Telephone Encounter - Sylvia Lizama MD - 05/31/2022 3:01 PM EDT Ok to do * Telephone Encounter - Hui Carrion APRN.LEONCIO - 05/31/2022 12:36 PM EDT Pt is scheduled for port-a-cath placement with Dr. Crowder at [facility] 06/05/2022. Pt currently is taking Eliquis for hx DVT. Per PAC guidelines we would like the pt to hold for 72 hours prior to surgery. Is this okay with you? Pt. Was placed on medication by PCP, note routed to that physician. documented in this encounterWexner Medical Center09-09-2022 Miscellaneous Notes* Telephone Encounter - Missy Peralta LPN - 05/31/2022 10:50 AM EDT Patient requesting 90 day refill through [facility]. Missy Peralta LPN documented in this encounterWexner Medical Center09-09-2022 Instructions* Patient Instructions* Hui Carrion APRN.LEONCIO - 05/31/2022 8:57 AM EDT PATIENT PREOPERATIVE INSTRUCTIONS Zeny Crowder MD has scheduled you for your procedure at this surgery center: [facility]: [phone] -- [address] [address]. Please read below carefully for your personalized [...] Procedures: - YOU MUST HAVE A RESPONSIBLE PSYCHOLOGY FELLOW TAKE YOU HOME. A FACTORY PROCESS WORKERS OR SMOKING PIPE COATER CANNOT BE MADE A RESPONSIBLE PSYCHOLOGY FELLOW. - We recommend that a responsible person [...] the afternoon before surgery (or Friday for Friday surgery) with a scheduled arrival time. - If you have not heard by 4 pm, please contact the surgery center above. Please be aware that emergency situations arise, which may delay or change your surgical time. If this happens, we will notify you as soon as possible and regret any inconvenience. If you already have an Advance Directive, please fax a copy to [phone] or email to for it to be [...] day. Hui Carrion APRN.LEONCIO documented in this encounterWexner Medical Center09-09-2022 History and physical note * Hui Carrion APRN.COMPENSATION ASSOCIATE - 05/31/2022 8:53 AM EDT HISTORY AND [...] fevers. Neurological: No history of TIA's, stroke, BRICK CHIMNEY BUILDER tumor, impaired sensorium, hemiplegia, paraplegia orquadraplegia. No neurological symptoms or problems. Respiratory: Abril Mast PA-C Fri May 25, 2021 Hospital Course: This is a 75yo female who initially presented to [facility] ED with wheezing and respiratory distress. In [...] very difficult airway. She was admitted to [facility] for ongoing care. On arrival patient [...] pain, CHF, congenital heart defect, hyperlipidemia, recent ND, murmur/valvular heart disease, open heart surgery and valve surgery. GI: Positive for: GERD (on rx) Negative for: abdominal pain, dysphagia, hepatitis, irritable bowel syndrome, inflammatory bowel disease, liver disease, nausea, pancreatitis, vomiting and ETOH >2 drinks/day. : Positive for: renal failure (s/p partial nephrectomy, benign patho). Patient's renal failure is chronic. Negative for: urinary incontinence, nephrolithiasis and urinary tract infection. SILK BRUSHER: Negative for abnormal vaginal bleeding, abnormal vaginal [...] Heart Father other (Other) Father Heart Brother ND, aneurysm Migraines Daughter Macular Degen Maternal Aunt [...] Kalina Catalan RPh on 05/28/2021 [facility] [address] [facility] Multi-vitamin Mail service [facility] 04/08/18 Patient stopped taking Coreg or Clonidine - took amlodipine 5mg BID 04/07 and 04/08 from old rx. Lala Weston RN ALLERGIES Allergen Reactions Covid-19 Vaccine, M* Anaphylaxis Erythromycin Rash, GI Upset Urticarial rash, seen in [place] [facility] Latex Swelling Lisinopril Swelling Nafcillin Itching [...] A1C (%) Date Value 11/24/2018 5.6 HBA1C, [place] (%) Date Value 06/10/2007 5.5 No results found for this or any previous visit (from the past 8760 hour(s)). Recent Results (from the past 27979 hour(s)) ECHO Collection Time: 05/19/21 7:32 AM [...] - Exam was compared with the prior echocardiographic exam performed on 09/28/2020. Stable in [...] by surgery and sepsis, on Eliquis, s/p [place] filter, TE to Dr. Escudero for pre-op [...] Well, with treated comorbid disease STOP-Bang Score: Snores loudly Has or is being treated for high blood pressure BMI greater than 35 kg/m^2 Patient over 50 years old Has a large neck Denies feeling tired, fatigued, or sleepy during the daytime Has not been observed to stop breathing or choking/gasping during sleep Non-male patient STOP-Bang Score: 5 [id number] Score: Age: >=75 Sex: female CHF history: No Hypertension history: Yes Stroke/TIA/thromboembolism history: Yes Vascular disease history: No Diabetes history: No [id number] Score: 6 ARISCAT Score: Age: 51-80 ARISCAT [...] and consent discussed: yes. Patient / Responsible Republican agrees to proceed: yes Patient / Surrogate [...] 8:53 AM PAGER/CONTACT #: documented in this encounterWexner Medical Center09-06-2022 History of Present illness Narrative* Zeny Crowder [...] for this visit. ALLERGIES: Covid-19 Vaccine, Mrna, [id number], Lnp-S (Moderna); Erythromycin; Latex; Lisinopril; Nafcillin; Norvasc [Amlodipine Besylate]; and Wasps PERSONAL HISTORY: Social History Tobacco Use Smoking status: Never Smokeless tobacco: Never Vaping Use Vaping Use: Never used Substance Use Topics Alcohol use: No Drug use: No FAMILY HISTORY: FAMILY HISTORY Problem Relation Age of Onset Heart Mother Cancer Mother lung Heart Father other (Other) Father Heart Brother ND, aneurysm Migraines Daughter Macular Degen Maternal Aunt REVIEW OF SYMPTOMS: The review of systems data was entered by the nurse and reviewed by wi Nursing Notes: Viv Lo RN 05/28/2022 3:01 [...] Planned Procedure: right Internal Jugular Portacath - 21198-104 Patient Weight Last 1 Encounter Wt Readings: Date: Wt: 05/28/2022 101.1 kg (222 lb 12.8 oz) Antibiotic: Ancef 2gm IVPB senior staff consultant to OR Planned Anesthetic: MAC with local [...] Zeny Crowder III, MD documented in this encounterWexner Medical Center09-06-2022 Nurse Note* Viv Lo RN - 05/28/2022 [...] 12/04/2016 Viv Lo RN documented in this encounterWexner Medical Center09-06-2022 History of Present illness Narrative* Chinyere Shea RN - 05/28/2022 2:34 PM EDT Patient teaching was completed over the phone. Chinyere Shea RN * Chinyere Shea RN - 05/28/2022 2:33 PM EDT Conductor/Engineer Pre Chemo Patient identified by name and date of . YES Confirmed date and time for chemotherapy ? YES Other appointments (labs, imaging) discussed? 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 Chinyere Shea RN documented in this encounterWexner Medical Center09-06-2022 Miscellaneous Notes* Telephone Encounter - Luz Morfin Ma - 05/28/2022 2:06 PM EDT Last office visit: 04/22/22 F/u scheduled: none Luz Morfin Ma documented in this encounterWexner Medical Center09-06-2022 Miscellaneous Notes* Telephone Encounter - Ashley Beauchamp [...] patient. Ashley Beauchamp LPN documented in this encounterWexner Medical Center09-01-2022 Miscellaneous Notes* Telephone Encounter - Talia Silver [...] advise, Lou Purvis RN documented in this encounterWexner Medical Center08-31-2022 Miscellaneous Notes* Telephone Encounter - Chinyere Shea RN - 05/22/2022 3:49 PM EDT Met with patient and introduced myself. Patient was given a My Journey binder with chemocare information, office contact information, thermometer, and additional chemotherapy resource booklets. Patient aware this nurse will review on scheduled appointment date. Information given for Rituxan and Bendamustine. Sravanthi Shea RN documented in this encounterWexner Medical Center08-31-2022 Miscellaneous Notes* Telephone Encounter - Lou Rincon [...] me back and phone/contact number provided. Chinyere Shabbir, RN * Telephone Encounter - Melba Escudero MD - 05/21/2022 1:04 PM EDT Please schedule Lisa for office visit tomorrow to discuss starting chemotherapy for her follicular lymphoma. Melba Escudero MD documented in this encounterWexner Medical Center08-30-2022 History of Present illness Narrative* Zeny Crowder [...] equipment: Bard Max-Core disposable core biopsy instrument [id number] and UltraClip dual trigger breast tissue marker 39mm08pi. Patient/Surrogate Stated/Verified: PATIENT VERIFIED(optional for EMERGENT procedures): [...] applicable. Viv Lo RN documented in this encounterWexner Medical Center08-24-2022 Miscellaneous Notes* Telephone Encounter - Elmira Monroy [...] nitrofurantoin and start Keflex. documented in this encounterWexner Medical Center08-22-2022 Miscellaneous Notes* Telephone Encounter - Ashley Beauchamp LPN - 05/13/2022 3:02 PM EDT Pt. Notified, voiced understanding Ashley Beauchamp LPN * Telephone Encounter - Melba Escudero MD - 05/13/2022 2:21 PM EDT Yes, as long as she is not having fever or symptoms. Continue antibiotic and proceed with bone marrow biopsy Friday. Melba Escudero MD * Telephone Encounter - Anelrandy Orellana - 05/13/2022 12:57 PM EDT Patient is having a Bone Marrow Biopsy on 05/15 and she currently has a UTI and was put on medicine.She is wanting to know if she is still ok to have the procedure on 05/15. Please call patient and advise. Thank you, Anel Orellana documented in this encounterWexner Medical Center08-22-2022 Instructions* Patient Instructions* Helen Bonilla APRN.CNP - 05/13/2022 11:54 AM EDT ASSESSMENT/PLAN: 1. [...] Discussed expected course of illness Helen Bonilla APRN.COMPENSATION ASSOCIATE [facility] PATIENT INFO BLADDER INFECTION OVERVIEW [...] actually have an infection. documented in this encounterWexner Medical Center08-22-2022 History of Present illness Narrative* Helen Bonilla [...] 1985 Hysterectomy, NEISHA ALLERGIES Covid-19 Vaccine, Mrna, [id number], Lnp-S (Moderna); Erythromycin; Latex; Lisinopril; Nafcillin; Norvasc [...] Heart Father other (Other) Father Heart Brother ND, aneurysm Migraines Daughter Macular Degen Maternal Aunt [...] Discussed expected course of illness Helen Bonilla APRN.COMPENSATION ASSOCIATE documented in this encounterWexner Medical Center08-19-2022 Instructions* Patient Instructions* Viv Lo RN - 05/10/2022 9:52 AM EDT The following instructions are important for you related to your office visit today with the [facility] General Surgeons. Instructions After OFFICE BASED [...] you should contact our office immediately @ [phone] and ask to be transferred to the General Surgery department. documented in this encounterWexner Medical Center08-16-2022 History of Present illness Narrative* Zeny Crowder [...] for this visit. ALLERGIES: Covid-19 Vaccine, Mrna, [id number], Lnp-S (Moderna); Erythromycin; Latex; Lisinopril; Nafcillin; Norvasc [Amlodipine Besylate]; and Wasps PERSONAL HISTORY: Social History Tobacco Use Smoking status: Never Smokeless tobacco: Never Vaping Use Vaping Use: Never used Substance Use Topics Alcohol use: No Drug use: No FAMILY HISTORY: FAMILY HISTORY Problem Relation Age of Onset Heart Mother Cancer Mother lung Heart Father other (Other) Father Heart Brother ND, aneurysm Migraines Daughter Macular Degen Maternal Aunt REVIEW OF SYMPTOMS: The review of systems data was entered by the nurse and reviewed by me Nursing Notes: Barbara PugaLAYNE 05/07/2022 9:05 AM Signed REVIEW OF SYSTEMS: [...] Zeny Crowder III, MD documented in this encounterWexner Medical Center08-16-2022 Nurse Note* Barbara Puga, BIOMETRICS HEAD - 05/07/2022 9:02 AM EDT REVIEW OF [...] 2016 Barbara Puga LPN documented in this encounterWexner Medical Center08-12-2022 History of Past illness Narrative* Problem Noted [...] Overview: Added automatically from request for surgery [id number] Lumbar spondylosis 07/18/2017 11/27/2022 Overview: Added automatically from request for surgery [id number] Chronic bilateral low back pain with bilateral s ciatica 04/28/2017 11/27/2022 Overview: Added automatically from request for surgery [id number] Obesity due to excess calori es, unspecified [...] of this encounter (statuses as of 11/27/2022) [facility] of Past illness Narrative* Problem Noted [...] Overview: Added automatically from request for surgery [id number] Lumbar spondylosis 07/18/2017 11/27/2022 Overview: Added automatically from request for surgery [id number] Chronic bilateral low back pain with bilateral s ciatica 04/28/2017 11/27/2022 Overview: Added automatically from request for surgery [id number] Obesity due to excess calori es, unspecified [...] of this encounter (statuses as of 12/10/2022) [facility] of Past illness Narrative* Problem Noted [...] Overview: Added automatically from request for surgery [id number] Lumbar spondylosis 07/18/2017 11/27/2022 Overview: Added automatically from request for surgery [id number] Chronic bilateral low back pain with bilateral s ciatica 04/28/2017 11/27/2022 Overview: Added automatically from request for surgery [id number] Obesity due to excess calori es, unspecified [...] of this encounter (statuses as of 12/17/2022) [facility] of Past illness Narrative* Problem Noted [...] Overview: Added automatically from request for surgery [id number] Lumbar spondylosis 07/18/2017 11/27/2022 Overview: Added automatically from request for surgery [id number] Chronic bilateral low back pain with bilateral s ciatica 04/28/2017 11/27/2022 Overview: Added automatically from request for surgery [id number] Obesity due to excess calori es, unspecified [...] of this encounter (statuses as of 12/18/2022) [facility] of Past illness Narrative* Problem Noted [...] Overview: Added automatically from request for surgery [id number] Lumbar spondylosis 07/18/2017 11/27/2022 Overview: Added automatically from request for surgery [id number] Chronic bilateral low back pain with bilateral s ciatica 04/28/2017 11/27/2022 Overview: Added automatically from request for surgery [id number] Obesity due to excess calori es, unspecified [...] of this encounter (statuses as of 12/25/2022) [facility] of Past illness Narrative* Problem Noted [...] Overview: Added automatically from request for surgery [id number] Lumbar spondylosis 07/18/2017 11/27/2022 Overview: Added automatically from request for surgery [id number] Chronic bilateral low back pain with bilateral s ciatica 04/28/2017 11/27/2022 Overview: Added automatically from request for surgery [id number] Obesity due to excess calori es, unspecified [...] of this encounter (statuses as of 12/25/2022) [facility] of Past illness Narrative* Problem Noted [...] Overview: Added automatically from request for surgery [id number] Lumbar spondylosis 07/18/2017 11/27/2022 Overview: Added automatically from request for surgery [id number] Chronic bilateral low back pain with bilateral s ciatica 04/28/2017 11/27/2022 Overview: Added automatically from request for surgery [id number] Obesity due to excess calori es, unspecified [...] of this encounter (statuses as of 12/25/2022) [facility] of Past illness Narrative* Problem Noted [...] Overview: Added automatically from request for surgery [id number] Lumbar spondylosis 07/18/2017 11/27/2022 Overview: Added automatically from request for surgery [id number] Chronic bilateral low back pain with bilateral s ciatica 04/28/2017 11/27/2022 Overview: Added automatically from request for surgery [id number] Obesity due to excess calori es, unspecified [...] of this encounter (statuses as of 12/31/2022) [facility] Past illness Narrative* Problem Noted [...] Overview: Added automatically from request for surgery [id number] Lumbar spondylosis 07/18/2017 11/27/2022 Overview: Added automatically from request for surgery [id number] Chronic bilateral low back pain with bilateral s ciatica 04/28/2017 11/27/2022 Overview: Added automatically from request for surgery [id number] Obesity due to excess calori es, unspecified [...] of this encounter (statuses as of 01/02/2023) [facility] illness Narrative* Problem Noted [...] Overview: Added automatically from request for surgery [id number] Lumbar spondylosis 07/18/2017 11/27/2022 Overview: Added automatically from request for surgery [id number] Chronic bilateral low back pain with bilateral s ciatica 04/28/2017 11/27/2022 Overview: Added automatically from request for surgery [id number] Obesity due to excess calori es, unspecified [...] of this encounter (statuses as of 02/21/2023) [facility] History of Past illness Narrative* Problem Noted [...] Overview: Added automatically from request for surgery [id number] Lumbar spondylosis 07/18/2017 11/27/2022 Overview: Added automatically from request for surgery [id number] Chronic bilateral low back pain with bilateral s ciatica 04/28/2017 11/27/2022 Overview: Added automatically from request for surgery [id number] Obesity due to excess calori es, unspecified [...] of this encounter (statuses as of 02/21/2023) [facility] of Past illness Narrative* Problem Noted [...] Overview: Added automatically from request for surgery [id number] Lumbar spondylosis 07/18/2017 11/27/2022 Overview: Added automatically from request for surgery [id number] Chronic bilateral low back pain with bilateral s ciatica 04/28/2017 11/27/2022 Overview: Added automatically from request for surgery [id number] Obesity due to excess calori es, unspecified [...] of this encounter (statuses as of 02/25/2023) [facility] History of Past illness Narrative* Problem Noted [...] Overview: Added automatically from request for surgery [id number] Lumbar spondylosis 07/18/2017 11/27/2022 Overview: Added automatically from request for surgery [id number] Chronic bilateral low back pain with bilateral s ciatica 04/28/2017 11/27/2022 Overview: Added automatically from request for surgery [id number] Obesity due to excess calori es, unspecified [...] of this encounter (statuses as of 03/10/2023) [facility] of Past illness Narrative* Problem Noted [...] Overview: Added automatically from request for surgery [id number] Lumbar spondylosis 07/18/2017 11/27/2022 Overview: Added automatically from request for surgery [id number] Chronic bilateral low back pain with bilateral s ciatica 04/28/2017 11/27/2022 Overview: Added automatically from request for surgery [id number] Obesity due to excess calori es, unspecified [...] of this encounter (statuses as of 03/24/2023) [facility] of Past illness Narrative* Problem Noted [...] Overview: Added automatically from request for surgery [id number] Lumbar spondylosis 07/18/2017 11/27/2022 Overview: Added automatically from request for surgery [id number] Chronic bilateral low back pain with bilateral s ciatica 04/28/2017 11/27/2022 Overview: Added automatically from request for surgery [id number] Obesity due to excess calori es, unspecified [...] of this encounter (statuses as of 03/27/2023) [facility] of Past illness Narrative* Problem Noted Date Diagnosed Date Resolved Date Abnormal mammogram 05/03/2022 3 Hypokalemia 05/30/2021 05/31/2021 Hyponatremia 05/30/2021 05/31/2021 Delirium [...] Overview: Added automatically from request for surgery [id number] Lumbar spondylosis 07/18/2017 Overview: Added automatically from request for surgery [id number] Chronic bilateral low back p ain with bilateral sciatica 04/28/2017 11/27/2022 Overview: Added automatically from request for surgery [id number] Obesity due to excess calori es, unspecified [...] of this encounter (statuses as of 04/03/2023) [facility] Past illness Narrative* Problem Noted [...] Overview: Added automatically from request for surgery [id number] Lumbar spondylosis 07/18/2017 Overview: Added automatically from request for surgery [id number] Chronic bilateral low back p ain with bilateral sciatica 04/28/2017 11/27/2022 Overview: Added automatically from request for surgery [id number] Obesity due to excess calori es, unspecified [...] of this encounter (statuses as of 04/18/2023) [facility] illness Narrative* Problem Noted [...] Overview: Added automatically from request for surgery [id number] Lumbar spondylosis 07/18/2017 Overview: Added automatically from request for surgery [id number] Chronic bilateral low back p ain with bilateral sciatica 04/28/2017 11/27/2022 Overview: Added automatically from request for surgery [id number] Obesity due to excess calori es, unspecified [...] of this encounter (statuses as of 04/18/2023) [facility] Narrative* Problem Noted [...] Overview: Added automatically from request for surgery [id number] Lumbar spondylosis 07/18/2017 Overview: Added automatically from request for surgery [id number] Chronic bilateral low back p ain with bilateral sciatica 04/28/2017 11/27/2022 Overview: Added automatically from request for surgery [id number] Obesity due to excess calori es, unspecified [...] of this encounter (statuses as of 04/25/2023) [facility] illness Narrative* Problem Noted [...] Overview: Added automatically from request for surgery [id number] Lumbar spondylosis 07/18/2017 Overview: Added automatically from request for surgery [id number] Chronic bilateral low back p ain with bilateral sciatica 04/28/2017 11/27/2022 Overview: Added automatically from request for surgery [id number] Obesity due to excess calori es, unspecified [...] of this encounter (statuses as of 04/30/2023) [facility] illness Narrative* Problem Noted [...] Overview: Added automatically from request for surgery [id number] Lumbar spondylosis 07/18/2017 Overview: Added automatically from request for surgery [id number] Chronic bilateral low back p ain with bilateral sciatica 04/28/2017 11/27/2022 Overview: Added automatically from request for surgery [id number] Obesity due to excess calori es, unspecified [...] of this encounter (statuses as of 05/07/2023) [facility] illness Narrative* Problem Noted [...] Overview: Added automatically from request for surgery [id number] Lumbar spondylosis 07/18/2017 Overview: Added automatically from request for surgery [id number] Chronic bilateral low back p ain with bilateral sciatica 04/28/2017 11/27/2022 Overview: Added automatically from request for surgery [id number] Obesity due to excess calori es, unspecified [...] of this encounter (statuses as of 05/09/2023) [facility] illness Narrative* Problem Noted [...] Overview: Added automatically from request for surgery [id number] Lumbar spondylosis 07/18/2017 Overview: Added automatically from request for surgery [id number] Chronic bilateral low back p ain with bilateral sciatica 04/28/2017 11/27/2022 Overview: Added automatically from request for surgery [id number] Obesity due to excess calori es, unspecified [...] of this encounter (statuses as of 05/13/2023) [facility] Narrative* Problem Noted [...] Overview: Added automatically from request for surgery [id number] Lumbar spondylosis 07/18/2017 Overview: Added automatically from request for surgery [id number] Chronic bilateral low back p ain with bilateral sciatica 04/28/2017 11/27/2022 Overview: Added automatically from request for surgery [id number] Obesity due to excess calori es, unspecified [...] of this encounter (statuses as of 06/05/2023) [facility] illness Narrative* Problem Noted [...] Overview: Added automatically from request for surgery [id number] Lumbar spondylosis 07/18/2017 Overview: Added automatically from request for surgery [id number] Chronic bilateral low back p ain with bilateral sciatica 04/28/2017 11/27/2022 Overview: Added automatically from request for surgery [id number] Obesity due to excess calori es, unspecified [...] of this encounter (statuses as of 06/06/2023) [facility] Narrative* Problem Noted [...] Overview: Added automatically from request for surgery [id number] Lumbar spondylosis 07/18/2017 Overview: Added automatically from request for surgery [id number] Chronic bilateral low back p ain with bilateral sciatica 04/28/2017 11/27/2022 Overview: Added automatically from request for surgery [id number] Obesity due to excess calori es, unspecified [...] of this encounter (statuses as of 06/06/2023) [facility] Narrative* Problem Noted [...] Overview: Added automatically from request for surgery [id number] Lumbar spondylosis 07/18/2017 Overview: Added automatically from request for surgery [id number] Chronic bilateral low back p ain with bilateral sciatica 04/28/2017 11/27/2022 Overview: Added automatically from request for surgery [id number] Obesity due to excess calori es, unspecified [...] of this encounter (statuses as of 06/13/2023) [facility] illness Narrative* Problem Noted [...] Overview: Added automatically from request for surgery [id number] Lumbar spondylosis 07/18/2017 Overview: Added automatically from request for surgery [id number] Chronic bilateral low back p ain with bilateral sciatica 04/28/2017 11/27/2022 Overview: Added automatically from request for surgery [id number] Obesity due to excess calori es, unspecified [...] of this encounter (statuses as of 06/14/2023) [facility] illness Narrative* Problem Noted [...] Overview: Added automatically from request for surgery [id number] Lumbar spondylosis 07/18/2017 Overview: Added automatically from request for surgery [id number] Chronic bilateral low back p ain with bilateral sciatica 04/28/2017 11/27/2022 Overview: Added automatically from request for surgery [id number] Obesity due to excess calori es, unspecified [...] of this encounter (statuses as of 04/19/2023) [facility] Miscellaneous Notes* Telephone Encounter - Heaven Sykes - 05/03/2022 12:05 PM EDTSummary: BMBX BMBX IN [facility] W/DR ESCUDERO ON 05/15/22 @ 12PM/ HEP/CBC/PBSX2/SPECIMEN TO [facility] documented in this [facility] History of Present illness Narrative* Suad Joe RT(R) - 04/22/2022 4:20 PM EDT Radiology [...] 22, 2022 4:26 PM documented in this encounter[facility] History of Present illness Narrative* Sylvia Lizama [...] Rash, GI Upset Urticarial rash, seen in [place] [facility] Latex Swelling Lisinopril Swelling Nafcillin Itching [...] Heart Father other (Other) Father Heart Brother [place], aneurysm Migraines Daughter Macular Degen Maternal Aunt [...] one month and prn. documented in this encounterW[facility]22 Miscellaneous Notes* Telephone Encounter - Sylvia Lizama [...] etc. Gorge Melendrez LPN documented in this encounterW[facility]07-11-2022 Miscellaneous Notes* Telephone Encounter - Danielle Gregory [...] none Luz Morfin Ma documented in this encounterW[facility]06-14-2022 Miscellaneous Notes* Telephone Encounter - Kimberly Obregon [...] you. Kimberly Obregon LPN documented in this encounterW[facility]05-16-2022 Miscellaneous Notes* Telephone Encounter - Sabrina Cavanaugh Ma - 02/04/2022 3:51 PM EDT See refill request documented in this encounterWex[facility] Center05-16-2022 Miscellaneous Notes* Telephone Encounter - Christina Javed [...] advise. Christina Javed LPN documented in this encounterW[facility]05-10-[facility]22 History of Present illness Narrative* Melba Escudero MD - 01/29/2022 4:20 PM EDT PATIENT NAME: Lisa Up. CLINIC NO: [id number]. ATTENDING PHYSICIAN: Melba Escudero MD. DATE OF [...] Abs Lymph 1.00 - 4.00 k/uL 1.86 Garland% % 10.1 Abs Garland <0.87 k/uL 0.50 Eosin% % 3.4 Abs [...] Cc: Dr. Sylvia Lizama documented in this encounterW[facility] Center09-[facility]21 History of Past illness Narrative* Problem Noted [...] of this encounter (statuses as of 01/10/2022) [facility]* Problem Noted [...] of this encounter (statuses as of 01/30/2022) [facility]* Problem Noted [...] of this encounter (statuses as of 02/04/2022) [facility]* Problem Noted [...] of this encounter (statuses as of 02/04/2022) [facility]* Problem Noted [...] of this encounter (statuses as of 03/05/2022) [facility]* Problem Noted [...] of this encounter (statuses as of 04/01/2022) [facility]* Problem Noted [...] of this encounter (statuses as of 04/19/2022) [facility]* Problem Noted [...] of this encounter (statuses as of 04/22/2022) [facility]* Problem Noted [...] of this encounter (statuses as of 05/07/2022) [facility]* Problem Noted [...] of this encounter (statuses as of 05/13/2022) [facility]* Problem Noted [...] of this encounter (statuses as of 05/13/2022) [facility]* Problem Noted [...] of this encounter (statuses as of 05/14/2022) [facility]* Problem Noted [...] of this encounter (statuses as of 05/15/2022) [facility]* Problem Noted [...] of this encounter (statuses as of 05/21/2022) [facility]* Problem Noted [...] of this encounter (statuses as of 05/22/2022) [facility]* Problem Noted Date Resolved Date Hypokalemia 05/30/2021 05/31/2021 Hyponatremia 05/30/2021 05/31/2021 Delirium 05/28/2021 05/31/2021 Angioedema 05/19/2021 05/31/2021 [place] angina 05/18/2021 05/19/2021 Acute respiratory failure with hypoxia 05/31/2021 Blepharitis of both eyes 12/27/2015 016 Meibomianitis 12/14/2015 01/03/2016 Meibomitis 09/06/2015 11/02/2015 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 Eyes 05/13/2014 08/16/2015 Other and combined [...] of this encounter (statuses as of 05/22/2022) [facility]* Problem Noted [...] of this encounter (statuses as of 05/23/2022) [facility]* Problem Noted [...] of this encounter (statuses as of 05/28/2022) [facility]* Problem Noted [...] of this encounter (statuses as of 05/28/2022) [facility]* Problem Noted [...] of this encounter (statuses as of 05/28/2022) [facility]* Problem Noted [...] of this encounter (statuses as of 05/31/2022) [facility]* Problem Noted [...] of this encounter (statuses as of 05/31/2022) [facility]* Problem Noted [...] of this encounter (statuses as of 05/31/2022) [facility]* Problem Noted [...] of this encounter (statuses as of 06/10/2022) [facility]* Problem Noted [...] of this encounter (statuses as of 06/10/2022) [facility] Problem Noted [...] of this encounter (statuses as of 06/11/2022) [facility] Problem Noted [...] of this encounter (statuses as of 06/19/2022) [facility]* Problem Noted [...] of this encounter (statuses as of 06/27/2022) [facility]* Problem Noted [...] of this encounter (statuses as of 06/28/2022) [facility] Problem Noted [...] of this encounter (statuses as of 06/28/2022) [facility] Problem Noted [...] of this encounter (statuses as of 07/02/2022) [facility] Problem Noted [...] of this encounter (statuses as of 07/02/2022) [facility] Problem Noted [...] of this encounter (statuses as of 07/08/2022) [facility]* Problem Noted [...] of this encounter (statuses as of 07/15/2022) [facility] Problem Noted [...] of this encounter (statuses as of 07/23/2022) [facility] Problem Noted [...] of this encounter (statuses as of 07/23/2022) [facility]* Problem Noted [...] of this encounter (statuses as of 07/24/2022) [facility] Problem Noted [...] of this encounter (statuses as of 07/26/2022) [facility] Problem Noted [...] of this encounter (statuses as of 07/31/2022) [facility] Problem Noted [...] of this encounter (statuses as of 08/01/2022) [facility] Problem Noted [...] of this encounter (statuses as of 08/05/2022) [facility] Problem Noted [...] of this encounter (statuses as of 08/06/2022) [facility] Problem Noted [...] of this encounter (statuses as of 08/12/2022) [facility] Problem Noted [...] of this encounter (statuses as of 08/19/2022) [facility] Problem Noted [...] of this encounter (statuses as of 09/01/2022) [facility] Problem Noted [...] of this encounter (statuses as of 09/02/2022) [facility] Problem Noted [...] of this encounter (statuses as of 09/03/2022) [facility] Problem Noted [...] of this encounter (statuses as of 09/26/2022) [facility] Problem Noted [...] of this encounter (statuses as of 09/26/2022) [facility] Problem Noted [...] of this encounter (statuses as of 10/01/2022) [facility] Problem Noted [...] 12/11/2010 01/15/2012 Dizziness and giddiness 02/26/2010 12/12/19 Primary localized osteoarthrosis, lower leg 01/2112/11/2010 Anxiety state, unspecified 06/07/200512/11 Depressive disorder, not elsewhere classified 12/11/2010 Carpal tunnel syndrome 06/07/2005 1 Obesity, Class III, BMI 40-49.9 (morbid obesity) 06/07/2005 09/12/2021 documented as of this encounter (statuses as of 10/01/2022) [facility]* Problem Noted [...] of this encounter (statuses as of 10/02/2022) [facility] Problem Noted [...] of this encounter (statuses as of 10/03/2022) [facility] Problem Noted [...] of this encounter (statuses as of 10/03/2022) [facility]* Problem Noted [...] of this encounter (statuses as of 10/04/2022) [facility] Problem Noted [...] of this encounter (statuses as of 10/15/2022) [facility] Problem Noted [...] of this encounter (statuses as of 10/28/2022) [facility]* Problem Noted [...] of this encounter (statuses as of 10/30/2022) [facility] Problem Noted [...] of this encounter (statuses as of 11/04/2022) [facility]* Problem Noted [...] of this encounter (statuses as of 11/08/2022) [facility]* Problem Noted [...] of this encounter (statuses as of 11/13/2022) [facility] Problem Noted [...] of this encounter (statuses as of 11/18/2022) [facility] Problem Noted [...] of this encounter (statuses as of 11/18/2022) [facility] Problem Noted [...] of this encounter (statuses as of 11/21/2022) [facility] Problem Noted [...] of this encounter (statuses as of 11/25/2022) [facility]* Problem Noted [...] of this encounter (statuses as of 11/26/2022) [facility] Narrative* Suad Joe, RT(R) - 03/21/2021 12:40 PM EDT Radiology [...] 21, 2021 12:56 PM documented in this encounterWex[facility] Center05[facility]17[facility]21 Miscellaneous Notes* Telephone Encounter - Talia Silver LPN - 02/05/2021 12:57 PM EDT Dizziness is gone. Reports that BP with HH nurse was good. * Telephone Encounter - [...] to see if she can access a VV as she was not able to do it the last time she tried. Will increase fluid intake, and check BP and call back with update for pcp in 1-2 hours. Reports [facility] is coming to her house tomorrow, [...] fluids. Will increase fluid intake. [facility]. 6. AGGRAVATING FACTORS: Standing made it worse. 7. HEART RATE No unable, can't feel it- hands are numb due to previous back surgery. 8. CAUSE: Sitting at computer a long time. 9. RECURRENT SYMPTOM: Has hx of vertigo, but this is different. 10. OTHER SYMPTOMS No other symptoms. Last void 10 min ago. 11. No. Protocols used: DIZZINESS - [id number] documented in this encounterWex[facility] Center04-23-2021 History of Present illness Narrative* Minerva Call (Rt), [facility] - 01/12/2021 2:50 PM EDT Radiology Service [...] 12, 2021 2:47 PM documented in this encounterWexner [facility] Center03-17-2021 History of Present illness Narrative* Carlton Dejesus [...] 06, 2020 2:44 PM documented in this encounterWex[facility] Center12-09-2020 History of Present illness Narrative* Suad Joe (Rt), [facility] - 08/30/2020 6:20 PM EST Radiology Service [...] 30, 2020 6:46 PM documented in this encounterVan Nuys ClinicDischarge summary Author Andrade Tapia [facility] Note Date/Time April 05, 2025 3:11 pm [facility] Medical Records Department [address] [place] [address] Discharge Summary 04/05/25 1506 MR#: [id number] Acct: [id number] Name: LISA UP Rep #:[id number] : [id number] 79 From: Andrade Tapia DO PCP: Dr. Sylvia Lizama MD Status:ADM I N Location: [place] [address] Providers Date of Admission: 04/01/25 Primary Care Physician: Dr. Sylvia Lizama MD Reason For Visit: VERTIGO DIPLOPIA Diagnosis Discharge Diagnosis (1) Vertigo: Status: Acute Code(s): R42 - Dizziness and giddiness Plan: Ongoing but improved. Secondary to hypotension, possibly orthostatic hypotension. Patient was notably hypotensive and did make adjustments to her medications and seems to be improved. Did check orthostats today and that is negative. MRI brain negative. Continue with as needed meclizine. PT OT evaluate and treat. (2) Migraine headache: Status: Chronic Code(s): G43.909 - Migraine, unspecified, not intractable, without status migrainosus Plan: Improved after 10mg of IV dexamethasone on 04/02. Plan Chronic conditions * CHRISTIANA: Continue CPAP [...] patient. Patient wishes to be full code. DC home Medications at Discharge Home Medications multivitamin with folic acid 400 mcg tablet (Thera) 1 tab PO DAILY vitamin 08/01/18 apixaban 5 mg tablet 5 mg PO BID blood thinner 08/13/20 levothyroxine 75 mcg tablet 75 mcg PO DAILY thyroid 07/30/22 carvedilol 25 mg tablet 25 mg PO BID blood pressure 03/24/24 gabapentin 400 mg capsule 400 mg PO BID nerve pain 03/24/24 meclizine 25 mg tablet 25 mg PO TID PRN dizziness 07/04/24 omeprazole 20 mg capsule,delayed release 20 mg PO DAILY PRN acid reflux 07/04/24 albuterol sulfate 90 mcg/actuation aerosol inhaler (Ventolin HFA) 2 puff inhalation Q4H PRN Wheezing 11/26/24 acetaminophen 325 mg tablet 1,000 mg (3.0769 x 325 mg) PO Q8H PRN PRN Pain 1-10 Or Fever>100.7 #0 tabs 04/04/25 losartan 25 mg tablet 25 mg PO DAILY #30 tabs 04/05/25 Hospital Course Operations None Procedures None Summary of Care Provided Minutes Spent on Discharge: 32 Weight / BMI Weight Weight: 110.223 kg Body Mass Index (BMI) 44.4 ABG / Lab / Microbiology Data 04/01/25 14:25 04/01/25 14:25 D/C Instructions DC O2, CPAP, BIPAP Needs Home O2 Discharge instructions: No Meaningful Use Info Meaningful Use Meaningful Use Diagnoses (Choose all that apply): None applicable Discharge Plan Admission Admit Date/Time: 04/01/25 17:35 Primary Reason for Your Visit: Vertigo Attending Provider: Andrade Tapia Primary Care Provider: Sylvia Lizama Instructions Additional Instructions / Restrictions: You had dizziness. She was thought to be due to your vertigo but appears to be more related with your blood pressure medications as the blood pressure medications may have caused her pressure to go too low causing feel dizzy. We have stopped your clonidine, hydralazine. Also decrease your losartan from 100-25 daily. You may continue the carvedilol at the previous dose. If you are having ongoing issues with dizziness or passing out, notify your physician or return to the emergency room. Discharge Orders/Prescriptions Prescriptions: New acetaminophen 325 mg Tablet 1,000 mg PO Q8H PRN PRN (Reason: Pain 1-10 Or Fever>100.7) Qty: 0 0RF losartan 25 mg tablet 25 mg PO DAILY Qty: 30 0RF Continued multivitamin with folic acid [Thera] 1 TABLET tablet 1 tab PO DAILY apixaban 5 MG tablet 5 mg PO BID levothyroxine 75 mcg Tablet 75 mcg PO DAILY carvedilol 25 mg tablet 25 mg PO BID gabapentin 400 mg capsule 400 mg PO BID albuterol sulfate [Ventolin HFA] 90 mcg/actuation HFA aerosol inhaler 2 puff inhalation Q4H PRN (Reason: Wheezing) Rx Instructions: with spacer omeprazole 20 mg capsule,delayed release(DR/EC) 20 mg PO DAILY PRN (Reason: acid reflux) meclizine 25 mg tablet 25 mg PO TID PRN (Reason: dizziness) Patient Comments: PT STATES SHE SHOULD TAKE THIS BUT DOESN'T, ONLY IF SHE IS DIZZY. Discontinued potassium chloride 10 MEQ tablet 10 meq PO BID paroxetine HCl 10 mg tablet 10 mg PO DAILY hydralazine 50 mg tablet 50 mg PO BID Patient Comments: PT STATES HER DR SAID IF HER BLOOD PRESSURE IS HIGH, TAKE AN EXTRA DOSE. clonidine HCl 0.1 mg Tablet 0.1 mg PO BID 30 Days Qty: 60 0RF losartan 100 mg tablet 100 mg PO DAILY Referrals / Follow Up: Sylvia Lizama MD [Primary Care Provider] - 04/11/25 2:40 pm (Appointment is Crista Sharp.PAnnette) Disposition Disposition (needs filled in before D/C Order can be placed): Home Health Service Charges/Coding Visit Charges Inpatient E&M: 25679 Disch Hosp >30min 04/05/25 1511 <Electronically signed by Andrade Tapia DO> Cosigner Signature (if applicable): CC: Dr. Andrade Tapia DO; Dr. 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 Encounter for screening mammogram for malignant neoplasm of breast Other screening mammogram [facility]* Diagnosis Hypopotassemia documented in this [facility]* Diagnosis Epigastric pain Abdominal pain, epigastric GERD without esophagitis Esophageal reflux documented [facility]* Diagnosis Hypopotassemia Epigastric pain Abdominal pain, epigastric GERD without esophagitis Esophageal reflux documented [facility]* Diagnosis SOB (shortness of breath)- Primary Shortness of breath Fatigue, unspecified type Bronchitis Bronchitis, not specified as acute or chronic Edema, unspecified type Hypothyroidism, unspecified type B-cell lymphoma, unspecified B-cell lymphoma type, unspecified body region (HCC) DDD (degenerative disc disease), lumbar Degeneration of lumbar or lumbosacral intervertebral disc Essential hypertension Unspecified essential hypertension [facility] Diagnosis 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) [facility] 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) [facility] Diagnosis Enlarged lymph nodes- Primary Enlargement of lymph nodes 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) [facility] 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) [facility] Diagnosis Encounter for education- Primary Counseling NOS 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) [facility] Diagnosis Hypopotassemia Essential hypertension Unspecified essential hypertension DDD (degenerative disc disease), lumbar Degeneration of lumbar or lumbosacral intervertebral disc [facility] Diagnosis 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 [facility] Diagnosis 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) [facility] Diagnosis Pre-operative examination- Primary Preoperative [...] multiple regions (HCC) [facility] Diagnosis Allergic contact dermatitis due to adhesives- Primary Contact dermatitis and other eczema due to other chemical products Port-A-Cath in place Other postprocedural status [facility] Diagnosis Need for influenza vaccination- Primary Need for prophylactic vaccination and inoculation against influenza Need for vaccination Need for prophylactic vaccination and inoculation against unspecified single disease [facility] Diagnosis 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 [facility] Diagnosis 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 [facility] Diagnosis 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) [facility] Diagnosis 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, secondary Other secondary thrombocytopenia [facility] Diagnosis B-cell lymphoma, unspecified B-cell lymphoma type, unspecified body region (HCC)- Primary 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) [facility] Diagnosis Onset Date Resolution Status Abdominal pain acute MARY (acute kidney injury) ac [place] Anticoagulant long-term use acute Non Hodgkin's lymphoma acute S/P laparoscopic cholecystectomy acute Acute cholecystitis resolved [facility] Work Phone: Evaluation note* Diagnosis Encounter for prophylactic measures, unspecified- Primary [facility] Diagnosis 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) [facility] Diagnosis 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 [facility]* Diagnosis Grade 2 follicular lymphoma of [...] [facility] Diagnosis Chronic kidney disease, unspecified CKD stage- Primary [facility] Diagnosis Grade 2 follicular lymphoma [...] Dizziness and giddiness [facility] Diagnosis Hypopotassemia DDD (degenerative disc disease), lumbar Degeneration of lumbar or lumbosacral intervertebral disc [facility] Diagnosis 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, secondary Other secondary thrombocytopenia [facility] Diagnosis 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, secondary Other secondary thrombocytopenia Chronic kidney disease, unspecified CKD stage [facility] Diagnosis Essential tremor- Primary Essential [...] examination of urine [facility] Diagnosis Essential hypertension Unspecified essential hypertension [facility] Diagnosis 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) [facility] Diagnosis Acute generalized exanthematous pustulosis due to drug- Primary Dermatitis due to drugs and medicines taken internally [facility] Diagnosis 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 [facility] Diagnosis Combined forms of age-related cataract of right eye- Primary Other and combined forms of senile cataract Combined forms of age-related cataract of left eye Other and combined forms of senile cataract Ocular hypertension, bilateral Borderline glaucoma with ocular hypertension Essential hypertension Unspecified essential hypertension [facility] Diagnosis 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 [facility] Diagnosis Acute pain of left shoulder- Primary Muscle tension pain [facility] Diagnosis Mixed hyperlipidemia- Primary Essential [...] lumbosacral intervertebral disc [facility] Diagnosis Left arm pain- Primary Pain in limb [facility] Diagnosis Left arm pain- Primary Pain in limb Neck pain Cervicalgia [facility] Diagnosis Left arm pain- Primary [...] multiple regions (HCC) [facility] Diagnosis Encounter for screening mammogram for malignant neoplasm of breast- Primary Other screening mammogram 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) [facility] Diagnosis Essential hypertension- Primary Unspecified [...] unspecified body region (HCC) Hypothyroidism, unspecified type correction current use of anticoagulant therapy Long-term (current) use of anticoagulants Valvular heart disease Endocarditis, valve unspecified, unspecified cause [facility]* Diagnosis CHRISTIANA (obstructive sleep apnea)- Primary Obstructive sleep apnea (adult) (pediatric) [facility]* Diagnosis Encounter for screening mammogram for malignant neoplasm of breast Other screening mammogram [facility] Diagnosis Grade 2 follicular lymphoma [...] head and neck [facility] Diagnosis Urinary frequency- Primary [facility] Diagnosis Neck mass Swelling, mass, or lump in head and neck [facility] [...] thrombosis and embolism [facility] Diagnosis Anxiety with depression [facility] Diagnosis 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 Enlarged lymph nodes Enlargement of lymph nodes Abnormal CT of the abdomen Nonspecific (abnormal) findings on radiological and other examination of abdominal area, including retroperitoneum [facility] Diagnosis Anxiety with depression- Primary Left arm pain Pain in limb Neck pain Cervicalgia DDD (degenerative disc disease), lumbar Degeneration of lumbar or lumbosacral intervertebral disc [facility] Diagnosis Urinary incontinence without sensory awareness- Primary Incontinence without sensory awareness [facility] Diagnosis Diarrhea, unspecified type- Primary Anxiety with depression Chilling Chills (without fever) Chills Chills (without fever) [facility] Diagnosis Diarrhea, unspecified type- Primary Sinobronchitis Unspecified sinusitis (chronic) [facility] Diagnosis Left arm pain Pain in limb Neck pain Cervicalgia DDD (degenerative disc disease), lumbar Degeneration of lumbar or lumbosacral intervertebral disc Diarrhea, unspecified type [facility] Diagnosis Diarrhea, unspecified type Essential hypertension Unspecified essential hypertension 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) Enlarged lymph nodes Enlargement of lymph nodes Abnormal CT of the abdomen Nonspecific (abnormal) findings on radiological and other examination of abdominal area, including retroperitoneum Hypertensive urgency Unspecified essential hypertension [facility] Diagnosis Diarrhea of infectious origin- [...] soft tissue, unspecified [facility]* Diagnosis Hypopotassemia [facility] Diagnosis BPPV (benign paroxysmal positional vertigo), unspecified laterality- Primary [facility]* Diagnosis 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) Enlarged lymph nodes Enlargement of lymph nodes Abnormal CT of the abdomen Nonspecific (abnormal) findings on radiological and other examination of abdominal area, including retroperitoneum [facility]* Diagnosis Soft tissue mass Disorders of soft tissue, unspecified [facility] Diagnosis 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 [facility]* Diagnosis Encounter for screening for malignant neoplasm of colon- Primary Special screening for malignant neoplasms, colon Diarrhea, unspecified type [facility] Diagnosis Essential hypertension- Primary Unspecified essential hypertension GERD without esophagitis Esophageal reflux Diarrhea, unspecified type documented in this encounter [facility] note* Diagnosis Pre-operative examination- Primary Preoperative [...] Urinary frequency- Primary documented in this encounter [facility] note* Diagnosis Pre-operative examination- Primary Preoperative [...] Dizziness and giddiness [facility] Diagnosis Pre-operative examination- Primary Preoperative examination, [...] Neck pain Cervicalgia [facility] Diagnosis Pre-operative examination- Primary Preoperative examination, [...] of left shoulder [facility] Diagnosis Pre-operative examination- Primary Preoperative examination, [...] subsequent encounter Hypopotassemia [facility] Diagnosis SOB (shortness of breath) Shortness [...] intubation, initial encounter [facility]* Diagnosis Upper back pain on left side- Primary Pain in thoracic spine [facility] Diagnosis Chest pain, unspecified type Pre-operative [...] intubation, initial encounter [facility]* Diagnosis Chills Chills (without fever) Pre-operative [...] intubation, initial encounter [facility] Diagnosis Infected sebaceous cyst of skin [...] intubation, initial encounter documented in this encounter [facility] note* Diagnosis Encounter by telehealth for suspected [...] intubation, initial encounter documented in this encounter [facility] note* Diagnosis Pre-operative examination- Primary Preoperative [...] Unspecified essential hypertension [facility]* Diagnosis Pre-operative examination- Primary Preoperative examination, [...] adult, unspecified whether serious comorbidity present (HCC) CHRSITIANA on CPAP Obstructive sleep apnea (adult) (pediatric) Gastroesophageal reflux disease, unspecified whether esophagitis present Chronic kidney disease, unspecified CKD stage Difficult airway for intubation, initial encounter Vision changes- Primary Unspecified visual disturbance Disorder of labyrinth, unspecified laterality Acute frontal sinusitis, recurrence not specified documented in this encounter [facility] note* Diagnosis Pre-operative examination- Primary Preoperative [...] Dizziness and giddiness documented in this encounter [facility] note* Diagnosis Pre-operative examination- Primary Preoperative [...] Other screening mammogram [facility] Diagnosis Pre-operative examination- Primary Preoperative examination, [...] Anxiety with depression [facility] Diagnosis Pre-operative examination- Primary Preoperative examination, [...] without status migrainosus [facility] Diagnosis Pre-operative examination- Primary Preoperative examination, [...] hematuria Acute cystitis [facility]* Diagnosis Pre-operative examination- Primary Preoperative examination, [...] Worsening headaches Headache [facility] Diagnosis Pre-operative examination- Primary Preoperative examination, [...] multiple regions (HCC) [facility] Diagnosis Pre-operative examination- Primary Preoperative examination, [...] Primary documented in this encounter [facility] note* Diagnosis Pre-operative examination- Primary Preoperative [...] Primary documented in this encounter [facility] note* Diagnosis Pre-operative examination- Primary Preoperative [...] regions (HCC)- Primary [facility]* Diagnosis Pre-operative examination- Primary Preoperative examination, [...] regions (HCC)- Primary [facility]* Diagnosis Pre-operative examination- Primary Preoperative examination, [...] regions (HCC)- Primary [facility]* Diagnosis Pre-operative examination- Primary Preoperative examination, [...] site Acute cough [facility] Diagnosis Pre-operative examination- Primary Preoperative examination, [...] encounter Acute cough [facility] Diagnosis Pre-operative examination- Primary Preoperative examination, [...] of unspecified site [facility] Diagnosis Pre-operative examination- Primary Preoperative examination, [...] multiple regions (HCC) [facility] Diagnosis Pre-operative examination- Primary Preoperative examination, [...] adult, unspecified whether serious comorbidity present (HCC) CHRSITIANA on CPAP Obstructive sleep apnea (adult) (pediatric) Gastroesophageal reflux disease, unspecified whether esophagitis present Chronic kidney disease, unspecified CKD stage Difficult airway for intubation, initial encounter 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)- Primary Nodular lymphoma of lymph nodes of multiple sites [facility] noteNo assessment information availableWWayne [facility] Work Phone: Evaluation note* Diagnosis Pre-operative examination- [...] incontinence, unspecified type documented in this encounter [facility] note* Diagnosis Pre-operative examination- Primary Preoperative [...] with neurogenic claudication [facility] Diagnosis Pre-operative examination- Primary Preoperative examination, [...] Unspecified essential hypertension [facility] Diagnosis Pre-operative examination- Primary Preoperative examination, [...] sites documented in this encounter [facility] note* Diagnosis Pre-operative examination- Primary Preoperative [...] Primary documented in this encounter [facility] note* Diagnosis Onset Date Resolution Status Admit Date Vertigo acute April 01 5:35pm [facility] Work Phone: Evaluation note* Diagnosis Pre-operative [...] encounter Disorder of labyrinth, unspecified laterality- Primary Migraine with aura, not intractable, without status migrainosus Neuropathy Mononeuritis of unspecified site [facility] Diagnosis Pre-operative examination- Primary Preoperative examination, [...] intubation, initial encounter Disorder of labyrinth, unspecified laterality Migraine with aura, not intractable, without status migrainosus [facility] Diagnosis Pre-operative examination- Primary Preoperative examination, [...] Difficult airway for intubation, initial encounter Essential tremor- Primary Essential and other specified forms of tremor Chronic migraine without aura, with intractable migraine, so stated, with status migrainosus Essential hypertension Unspecified essential hypertension Chronic kidney disease, unspecified CKD stage Hypothyroidism, unspecified type [facility] Author Andrade Tapia [facility] Note Date/Time April 01, 2025 5:46 pm [facility] Medical Records Department [address] [place] [address] H&P Exam - Hospitalist 04/01/25 1741 MR#: [id number] Acct: [id number] Name: LISA UP Rep #:[id number] : 1945 79 From: Andrade Tapia DO PCP: Dr. Sylvia Lizama MD Status:ADM I N Location: [place] [address] HPI - General General Date of Admission: [...] the hospital service was contacted for admission. [facility] Medical History DVT (deep venous thrombosis) [...] vaccine, mRNA, Allergy Anaphylaxis Verified 04/01/25 12:34 [id number], erythromycin base Allergy Rash Verified 04/01/25 12:34 [...] % (Auto) 62.6, Lymph % (Auto) 23.5, Garland % (Auto) 9.6, Eos % (Auto) 3.9, [...] loss and chronic microangiopathic changes. Reading Location: [id number] Assessment & Plan Assessment/Plan (1) Vertigo: PLAN: [...] full code. Charges/Coding Visit Charges Inpatient E&M: 47670 Init Hosp L3 04/01/25 4757 <Electronically signed by Andrade Tapia DO> Cosigner Signature (if applicable): CC: Dr. Andrade Tapia DO; Dr. Sylvia Lizama MD~ Signed [facility] Work Phone: Hospital Discharge instructionsAdditional Instructions You had dizziness. She was thought to be due to your vertigo but appears to be more related with your blood pressure medications as the blood pressure medications may have caused her pressure to go too low causing feel dizzy. We have stopped your clonidine, hydralazine. Also decrease your losartan from 100-25 daily. You may continue the carvedilol at the previous dose. If you are having ongoing issues with dizziness or passing out, notify your physician or return to the emergency room.[facility] Work Phone: Instructions* Instruction Description Start Date Completed [facility] Work Phone: Reason for referral (narrative)* Diagnostic Procedure Only (Routine) - Authorized Specialty Diagnoses / Procedures Referred By Donnie dietrich Referred To Contact BR IMAGING Diagnoses Encounter for screening mammogram for malignant neoplasm of breast Procedures ROXANNE SCREENING W ANTHONY SCREENING DIGITAL BREAST TOMOSYNTHESIS BI SCREENING MAMMOGRAPHY BI 2-VIEW BREAST INC CAD Melba Escudero MD [facility] [place] [address] Br Imaging [address] [place] [address] Referral ID Status Reason Start Date Expiration Date Visits Requested Visits Authorized [id number] Authorized Auto-Generat ed Referral 01/29/2022 02/28/2023 1 1 * MRI/CT (Routine) - Authorized Specialty Diagnoses / Procedures Referred By Donnie dietrich Referred To Contact CT IMAGING Diagnoses 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) Procedures CT CHEST W IVCON DIAGNOSTIC COMPUTED TOMOGRAPHY THORAX W/CONTRAST Melba Escudero MD [facility] [place] [address] Ct Imaging Referral ID Status Reason Start Date Expiration Date Visits Requested Visits Authorized [id number] Authorized Auto-Generat ed Referral 05/01/2022 02/28/2023 1 1 * MRI/CT (Routine) - Authorized Specialty Diagnoses / Procedures [facility] Ref[facility] To Contact CT [facility] Diagnoses 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) Procedures CT ABD/PEL W IVCON CT ABD & PELVIS W/CONTRAST Melba Escudero MD [address] [place] [address] Ct Imaging Referral ID Status Reason Start Date Expiration Date Visits Requested Visits Authorized [id number] Authorized Auto-Generat ed Referral 05/01/2022 02/28/2023 1 1 [facility] for referral (narrative)* Diagnostic Procedure Only (Routine) - Authorized Specialty Diagnoses / Procedures [facility] Diagnoses CHRISTIANA (obstructive sleep apnea) Procedures HOME SLEEP APNEA TEST (HSAT) SLEEP STD AIRFLOW HRT RATE&O2 SAT EFFORT Sylvia Myers MD [address] [place] [address] [facility] [address] [place] [address] Referral ID Status Reason Start Date Expiration Date Visits Requested Visits Authorized [id number] Authorized Auto-Generat ed Referral 11/27/2022 11/27/2023 1 1 [facility] for referral (narrative)* Diagnostic Procedure Only (Routine) - Closed Specialty Diagnoses / Procedures [facility] Referred To Contact XR IMAGING Diagnoses Acute pain of left shoulder Procedures XR SHOULDER GENERAL 3V OR MORE AP/TRUE AP/OTHER LEFT RADEX SHOULDER COMPLETE MINIMUM 2 VIEWS Elissa Felipe, KIERSTEN [address] [place] [address] Xr Imaging Referral ID Status Reason Start Date Expiration Date V isits Requested Visits Authorized [id number] Closed Auto-Generate d Referral 03/24/2023 04/22/2024 1 1 [facility] Outpatient Procedure (Routine) - Authorized Specialty Diagnoses / Procedures Referred By Donnie t Referred To Contact [facility] Diagnoses Bilateral carotid artery stenosis Procedures US CAROTID ARTERIES [facility] DUPLEX SCAN EXTRACRANIAL ART COMPL BI STUDY Sylvia Lizama MD [address] [place] [address] [facility] [address] [place] [address] Referral ID Status Reason Start Date Expiration Date Visits Requested Visits Authorized [id number] Authorized Auto-Generat ed Referral 04/03/2023 04/02/2024 1 1 * Diagnostic Procedure Only (Routine) - Closed Specialty Diagnoses / Procedures Referred By Donnie dietrich Referred To Contact XR IMAGING Diagnoses Left arm pain Neck pain Procedures XR CERV OTHER 4V AP/LAT/OBL RADEX SPINE CERVICAL 4 OR 5 VIEWS Sylvia Lizama MD [address] [place] [address] Xr Imaging Referral ID Status Reason Start Date Expiration Date V isits Requested Visits Authorized [id number] Closed Auto-Generate d Referral 04/03/2023 05/02/2024 1 1 * Physical Therapy (Routine) - Authorized Specialty Diagnoses / Procedures Referred By Donnie t Referred To Contact [facility] Diagnoses Left arm pain Neck pain Procedures CONSULT TO PHYSICAL THERAPY PHYSICAL THERAPY EVALUATION HIGH COMPLEX 45 MINS Sylvia Lizama MD [address] [place] [address] [facility] [address] [address] Referral ID Status Reason Start Date Expiration Date Visits Requested Visits Authorized [id number] Authorized PCP Requested Referral Auto-Generate d Referral 04/03/2023 04/02/2024 99 99 [facility] for referral (narrative)* Diagnostic Procedure Only (Routine) - Authorized Specialty Diagnoses / Procedures Referred By Donnie t Referred To Contact BR IMAG[facility] Diagnoses Encounter for screening mammogram for malignant neoplasm of breast Procedures ROXANNE SCREENING W ANTHONY SCREENING DIGITAL BREAST TOMOSYNTHESIS BI SCREENING MAMMOGRAPHY BI 2-[place] [address] [place] [address] Br Imaging [address] [place] [address] Referral ID Status Reason Start Date Expiration Date Visits Requested Visits Authorized [id number] Authorized Auto-Generat ed Referral 06/13/2023 07/12/2024 1 1 [facility] for referral (narrative)* Outpatient Procedure (Routine) - Authorized Specialty Diagnoses / Procedures Referred By Donnie dietrich Referred To Contact [facility] Diagnoses Valvular heart disease Procedures ECHO ECHO TTHRC R-T 2D W/WOM-MODE COMPL SPEC&COLR D Sylvia Lizama MD [facility] [place] [address] [address] Referral ID Status Reason Start Date Expiration Date Visits Requested Visits Authorized [id number] Authorized Auto-Generat ed Referral 07/07/2024 1 1 [facility] for referral (narrative)* Diagnostic Procedure Only (Routine) - Closed Specialty Diagnoses / Procedures Referred By Donnie dietrich Referred To Contact BR IMAG[facility] Diagnoses Encounter for screening mammogram for malignant neoplasm of breast Procedures ROXANNE SCREENING W ANTHONY SCREENING DIGITAL BREAST TOMOSYNTHESIS BI SCREENING MAMMOGRAPHY BI 2-[place] [address] [place] [address] Br Imaging [address] [place] [address] Referral ID Status Reason Start Date Expiration Date V isits Requested Visits Authorized [id number] Closed Auto-Generate d Referral 06/13/2023 07/12/2024 1 1 [facility] for referral (narrative)* Diagnostic Procedure Only (Routine) - Authorized Specialty Diagnoses / Procedures [facility] Referred To Contact US [facility] Diagnoses Neck mass Procedures US HEAD/NECK SOFT TISSUE OTHER US SOFT TISSUE HEAD & NECK REAL TIME IMGE Sathya Roa MD [address] [place] [address] [place] [address] Referral ID Status Reason Start Date Expiration Date Visits Requested Visits Authorized [id number] Authorized Auto-Generat ed Referral 10/27/2023 11/25/2024 1 1 [facility] for referral (narrative)* Outpatient Procedure (Routine) - Authorized Specialty Diagnoses / Procedures Referred By [facility] t Referred To Contact [facility] Diagnoses Diarrhea, unspecified type Procedures COLONOSCOPY DIAGNOSTIC COLONOSCOPY FLX DX W/COLLJ SPEC WHEN PFRMD Zeny Crowder MD [address] [place] [id number] [facility] [address] [place] [id number] Referral ID Status Reason Start Date Expiration Date Visits Requested Visits Authorized [id number] Authorized Auto-Generat ed Referral 03/29/2024 03/29/2025 1 1 [facility] for referral (narrative)* Diagnostic Procedure Only (Routine) - Authorized Specialty Diagnoses / Procedures [facility] Referred To Contact [facility] IM[facility] Diagnoses Soft tissue mass Procedures US EXTREMITY MASS/FLUID COLLECTION LEFT Sylvia Lizama MD [address] [place] [address] [place] [address] Referral ID Status Reason Start Date Expiration Date Visits Requested Visits Authorized [id number] Authorized Auto-Generat ed Referral 04/02/2024 05/02/2025 1 1 [facility] for referral (narrative)* Diagnostic Procedure Only (Routine) - Closed Specialty Diagnoses / Procedures Referred By Contac t Referred To Contact US IMAGING Diagnoses Soft tissue mass Procedures US EXTREMITY MASS/FLUID COLLECTION LEFT Sylvia Lizama MD [address] [place] [address] [place] [address] Referral ID Status Reason Start Date Expiration Date V isits Requested Visits Authorized [id number] Closed Auto-Generate d Referral 04/02/2024 05/02/2025 1 1 [facility] for referral (narrative)* Outpatient Procedure (Routine) - Closed Specialty Diagnoses / Procedures Referred By Contac t Referred To Contact [facility] Diagnoses Diarrhea, unspecified type Procedures COLONOSCOPY DIAGNOSTIC COLONOSCOPY FLX DX W/COLLJ SPEC WHEN PFRMZeny Salazar MD [address] [place] [address] [facility] [address] [place] [id number] Referral ID Status Reason Start Date Expiration Date V isits Requested Visits Authorized [id number] Closed Auto-Generate d Referral 03/29/2024 03/29/2025 1 1 [facility] for referral (narrative)* Diagnostic Procedure Only (Routine) - Closed Specialty Diagnoses / Procedures Referred By Contac t Referred To Contact XR IMAGING Diagnoses Left arm pain Neck pain Procedures XR CERV OTHER 4V AP/LAT/OBL RADEX SPINE CERVICAL 4 OR 5 VIEWS Sylvia Lizama MD [address] [place] [address] [place] [address] Referral ID Status Reason Start Date Expiration Date V isits Requested Visits Authorized [id number] Closed Auto-Generate d Referral 04/03/2023 05/02/2024 1 1 [facility] for referral (narrative)* Diagnostic Procedure Only (Routine) - Closed Specialty Diagnoses / Procedures Referred By Contac t Referred To Contact XR IMAGING Diagnoses Acute pain of left shoulder Procedures XR SHOULDER GENERAL 3V OR MORE AP/TRUE AP/OTHER LEFT RADEX SHOULDER COMPLETE MINIMUM 2 VIEWS Elissa Felipe APRN.CNP [address] [place] [address] [place] [address] Referral ID Status Reason Start Date Expiration Date V isits Requested Visits Authorized [id number] Closed Auto-Generate d Referral 03/24/2023 04/22/2024 1 1 [facility] for referral (narrative)No reason for referral information [facility]WW[facility] Work Phone: Reason for visit Narrative* Diagnostic Procedure Only (Routine) - Closed Specialty Diagnoses / Procedures Referred By Donnie t Referred To Contact BR IMAGING Diagnoses Encounter for screening mammogram for malignant neoplasm of breast Procedures ROXANNE SCREENING W ANTHONY SCREENING DIGITAL BREAST TOMOSYNTHESIS BI SCREENING MAMMOGRAPHY BI 2-[place] [address] [place] [address] Br Imaging [address] [place] [address] Referral ID Status Reason Start Date Expiration Date V isits Requested Visits Authorized [id number] Closed Auto-Generate d Referral 06/13/2023 07/12/2024 1 1 [facility] for visit Narrative* Outpatient Procedure (Routine) - Closed Specialty Diagnoses / Procedures [facility] To [facility] Diagnoses Diarrhea, unspecified type Procedures COLONOSCOPY DIAGNOSTIC COLONOSCOPY FLX DX W/COLLJ SPEC WHEN PFRMD Zeny Crowder MD [address] [facility] [place] [address] [facility] [address] [place] [address] Referral ID Status Reason Start Date Expiration Date V isits Requested Visits Authorized [id number] Closed Auto-Generate d Referral 03/29/2024 03/29/2025 1 1 [facility] for visit Narrative* Diagnostic Procedure Only (Routine) - Closed Specialty Diagnoses / Procedures Referred By Contac t Referred To Contact XR IMAGING Diagnoses Left arm pain Neck pain Procedures XR CERV OTHER 4V AP/LAT/OBL RADEX SPINE CERVICAL 4 OR 5 VIEWS Sylvia Lizama MD [address] [place] [address] [place] [address] Referral ID Status Reason Start Date Expiration Date V isits Requested Visits Authorized [id number] Closed Auto-Generate d Referral 04/03/2023 05/02/2024 1 1 [facility] for visit Narrative* Diagnostic Procedure Only (Routine) - Closed Specialty Diagnoses / Procedures Referred By Contac t Referred To Contact XR IMAGING Diagnoses Acute pain of left shoulder Procedures XR SHOULDER GENERAL 3V OR MORE AP/TRUE AP/OTHER LEFT RADEX SHOULDER COMPLETE MINIMUM 2 VIEWS Elissa Felipe APRN.COMPENSATION ASSOCIATE [address] [place] [address] [place] [address] Referral ID Status Reason Start Date Expiration Date V isits Requested Visits Authorized [id number] Closed Auto-Generate d Referral 03/24/2023 04/22/2024 1 1 [facility] for visit Narrative* Diagnostic Procedure Only (Routine) - Closed Specialty Diagnoses / Procedures Referred By Contac t Referred To Contact BR IMAGING Diagnoses 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) Encounter for screening mammogram for malignant neoplasm of breast Procedures ORXANNE SCREENING W ANTHONY SCREENING DIGITAL BREAST TOMOSYNTHESIS BI SCREENING MAMMOGRAPHY BI 2-VIEW BREAST INC CAD Brendon Coppola, ROLL CUTTING OPERATOR.COMPENSATION ASSOCIATE [address] [place] [address] Br Imaging [address] [place] [address] Referral ID Status Reason Start Date Expiration Date V isits Requested Visits Authorized [id number] Closed Auto-Generate d Referral 12/16/2023 01/14/2025 1 1 [facility] for visit Narrative* MRI/CT (Routine) - Closed Specialty Diagnoses / Procedures Referred By Contac t Referred To Contact CT IMAGING Diagnoses 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) Procedures CT ABD/PEL W IVCON CT ABD & PELVIS W/CONTRAST César Suggs DO [address] [place] [address] Phone: tel: fax: [place] [address] Referral ID Status Reason Start Date Expiration Date V isits Requested Visits Authorized [id number] Closed Auto-Generate d Referral 09/03/2024 10/03/2025 1 1 [facility] MRI/CT (Routine) - Closed Specialty Diagnoses / Procedures Referred By Donnie t Referred To Contact CT IMAGING Diagnoses 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 [place] [address] Phone: tel: fax: [place] [address] Referral ID Status Reason Start Date Expiration Date V isits Requested Visits Authorized [id number] Closed Auto-Generate d Referral 12/10/2024 01/09/2026 1 1 [facility] Summary Purpose Family History No Family History Records Found Relationship Condition Age at Onset Recorded Date/T jacki mother Hypertension Unknown Advance Directives No Advanced Directives Records FoundDocuments on File Type Date Recorded Patient Redye Hand Expl anation ACP-Advance Directive ACP-Power of Poultry Service Technician Latest Code Status on File Code Status Date Activated Date Inactivated Comments Full Code 08/07/2018 8:13 PM 08/10/2018 8:44 PM Limited 08/03/2018 4:44 AM 08/07/2018 8:11 PM Intubation/Re-intubation: No Defibrillation/Cardioversion: Yes Chest Compressions: Yes Resuscitative Medications: Yes Full Code 08/02/2018 12:15 AM 08/03/2018 4:44 AM Documents on File Type Date Recorded Patient Redye Hand Expl anation Advance Directives and Living Will Power of Poultry Service Technician Documents on File Type Date Recorded Patient Redye Hand Expl anation Advance Directive(s) 05/19/2021 3:38 PM [...] Documents on File Type Date Recorded Patient Redye Hand Expl anation Advance Directive(s) 05/19/2021 3:38 PM [...] Date/ Time Name of Medical Power of Poultry Service Technician Shauna Up July 30, 2022 2:38pm Advance Directives Yes July 26, 2016 3:22pm Living Will No July 30 2:38pm Power of Poultry Service Technician Yes July 30, 2022 2:38pm Latest Code [...] Date/ Time Living Will No November 06, 2 025 2:28pm Power of Poultry Service Technician No November 06, 2024 2:28pm Living Will Yes November 26, 2024 11:17am Power of Poultry Service Technician Yes November 26 11:17am Name of Medical Power of Poultry Service Technician DAUGHTER November 26, 2024 11:17am Advance Directives Yes July 26, 2016 3:22pm Advance Directive Response Recorded Date/ Time Living Will No November 06, 2 025 3:28pm Power of Poultry Service Technician No November 06, 2024 3:28pm Living Will Yes November 26, 2024 6:31pm Power of Poultry Service Technician Yes November 26 6:31pm Name of Medical Power of Poultry Service Technician DAUGHTER - Nancy Wong November 26, 2024 6:31pm Advance Directives Yes July 26, 2016 4:22pm Advance Directive Response Recorded Date/ Time Do you have a Healthcare Power of Poultry Service Technician? No April 01, 2025 2:54pm Advance Directives Yes July 26, 2016 4:22pm Advance Directive Response Recorded Date/ Time Do you have a Healthcare Pow er of Poultry Service Technician? Yes April 01, 2025 8:02pm Name of Medical Power of Poultry Service Technician Sabrina Wong- Daughter April 01, 2025 8:02pm Advance Directives Yes July 26, 2016 4:22pm Discharge Instructions * Attachments The following attachments cannot be sent through Care Everywhere. * UTI (Urinary Tract Infection): Female (Kenyan) documented in this encounter* Instructions* Pavel Watts MD - 09/13/2020 We will contact you if any of your viral studies are positive including COVID 19. Contact her physician's office for a follow-up appointment. * Attachments The following attachments cannot be sent through Care Everywhere. * URI (Upper Respiratory Infection) (Kenyan) documented in this encounter Assessments Diagnosis Acute [...] ml over 60 minutes. Refrigerate., Medication Substitution: [facility] preferred product has been replaced with the [...] 1 dose, On Fri12/30/22 at 1500, exp [address]312/30/22 (room temp) Inject subcutaneously in abdomen over [...] Date Vertigo April 01, 2025 5:35 pm Chief Complaint Admit Date ADMISSION EXAM December 07, 2024 2:0 2pm LABWORK December 08, 2024 5:0 0am LAB WORK December 15, 2024 5:0 0am NEW CONCERN December 15, 2024 5:0 4pm VERTIGO DIPLOPIA April 01, 2025 5:35 pm POSTERIOR CIRCULATORY STROKE April 01, 2025 5:41pm VERTIGO DIPLOPIA April 02, 2025 7:48 am VERTIGO DIPLOPIA April 03, 2025 7:45 am VERTIGO DIPLOPIA April 04, 2025 8:09 am VERTIGO DIPLOPIA April 05, 2025 8:30 am Reason for Visit Admit Date Vertigo April 01, 2025 5:35 pm Migraine headache April 01, 2025 5:35 pm Reason for Referral Specialty Diagnoses / Procedures Referred By Donnie dietrich Referred To Contact Diagnoses Encounter for prophylactic measures, unspecified Procedures COVID TREATMENT REFERRAL COVID TREATMENT REFERRAL Melba Escudero MD [address] [place] [address] Referral ID Status Reason Start Date Expiration Date Visits Requested Visits Authorized [id number] Pending Review Auto-Generat ed Referral 08/01/2023 1 1 Specialty Diagnoses / Procedures Referred By Donnie t Referred To Contact CT IMAGING Diagnoses 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) Procedures CT CHEST W IVCON DIAGNOSTIC COMPUTED TOMOGRAPHY THORAX W/CONTRAST Melba Escudero MD [address] [place] [address] Ct Imaging Referral ID Status Reason Start Date Expiration Date Visits Requested Visits Authorized [id number] Authorized Auto-Generat ed Referral 08/30/2022 09/29/2023 1 1 Specialty Diagnoses / Procedures Referred By Donnie t Referred To Contact CT IMAGING Diagnoses 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) Procedures CT CHEST W IVCON DIAGNOSTIC COMPUTED TOMOGRAPHY THORAX W/CONTRAST Melba Escudero MD [address] [place] [address] [place] [address] [place] [address] Referral ID Status Reason Start Date Expiration Date V isits Requested Visits Authorized [id number] Closed Auto-Generate d Referral 12/29/2022 10/30/2023 1 1 Specialty Diagnoses / Procedures Referred By Contac t Referred To Contact CT IMAGING Diagnoses 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 [place] [address] [place] [address] Referral ID Status Reason Start Date Expiration Date V isits Requested Visits Authorized [id number] Closed Auto-Generate d Referral 12/02/2022 12/25/2023 1 1 Referral ID Status Reason Start Date Expiration Date V isits Requested Visits Authorized [id number] Closed Auto-Generate d Referral 08/30/2022 09/29/2023 1 1 Referral ID Status Reason Start Date Expiration Date V isits Requested Visits Authorized [id number] Closed Auto-Generate d Referral 08/30/2022 09/29/2023 1 1 Specialty Diagnoses / Procedures Referred By Contac t Referred To Contact CT IMAGING Diagnoses 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) Enlarged lymph nodes Abnormal CT of the abdomen Procedures CT ABD/PEL W IVCON CT ABD & PELVIS W/CONTRAST Brendon Coppola, ROLL CUTTING OPERATOR.COMPENSATION ASSOCIATE [address] [place] [address] [place] [address] Referral ID Status Reason Start Date Expiration Date Visits Requested Visits Authorized [id number] Authorized Auto-Generat ed Referral 01/08/2024 02/06/2025 1 1 Specialty Diagnoses / Procedures Referred By Contac t Referred To Contact Diagnoses Urinary incontinence without sensory awareness Procedures CONSULT TO GYNECOLOGIC/ONCOLOGY OFFICE/OUTPATIENT [facility] 60 MINUTES Shaila Rincon APRN.COMPENSATION ASSOCIATE [address] [place] [address] Referral ID Status Reason Start Date Expiration Date Visits Requested Visits Authorized [id number] Authorized PCP Requested Referral Auto-Generate d Referral 02/19/2024 02/18/2025 1 1 Specialty Diagnoses / Procedures Referred By Contac t Referred To Contact Gastroenterology Diagnoses Diarrhea, unspecified type Procedures CONSULT TO GASTROENTEROLOGY OFFICE/OUTPATIENT [facility] MDM 60 MINUTES Judith Pickard APRN.BRICK CHIMNEY BUILDER [address] [place] [address] Referral ID Status Reason Start Date Expiration Date Visits Requested Visits Authorized [id number] Authorized PCP Requested Referral 03/04/2024 03/04/2025 1 1 Specialty Diagnoses / Procedures Referred By Contac t Referred To Contact [facility] Diagnoses BPPV (benign paroxysmal positional vertigo), unspecified laterality Procedures CONSULT TO PHYSICAL THERAPY PHYSICAL THERAPY EVALUATION HIGH COMPLEX 45 MINS Judith Pickard APRN.COMPENSATION ASSOCIATE [address] [place] [address] [facility] [place] [address] [place] [address] Referral ID Status Reason Start Date Expiration Date Visits Requested Visits Authorized [id number] Authorized PCP Requested Referral Auto-Generate d Referral 04/15/2024 04/08/2025 99 99 Specialty Diagnoses / Procedures Referred By Contac t Referred To Contact CT IMAGING Diagnoses 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) Procedures CT CHEST W IVCON DIAGNOSTIC COMPUTED TOMOGRAPHY THORAX W/CONTRAST Brendon Coppola, ROLL CUTTING OPERATOR.COMPENSATION ASSOCIATE [address] [place] [address] [place] [address] Referral ID Status Reason Start Date Expiration Date Visits Requested Visits Authorized [id number] Authorized Auto-Generat ed Referral 04/26/2024 05/26/2025 1 1 Specialty Diagnoses / Procedures Referred By Contac t Referred To Contact CT IMAGING Diagnoses 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) Procedures CT ABD/PEL W IVCON CT ABD & PELVIS W/CONTRAST Brendon Coppola APRN.COMPENSATION ASSOCIATE [address] [place] [address] [place] [address] Referral ID Status Reason Start Date Expiration Date Visits Requested Visits Authorized [id number] Authorized Auto-Generat ed Referral 04/26/2024 05/26/2025 1 1 Specialty Diagnoses / Procedures Referred By Contac t Referred To Contact Urology Diagnoses Urge incontinence Procedures CONSULT TO UROLOGY CONSULT TO UROLOGY OFFICE/OUTPATIENT NEW [facility]IGH MDM 60 MINUTES Judith Pickard APRN.COMPENSATION ASSOCIATE [address] [place] [address] Referral ID Status Reason Start Date Expiration Date Visits Requested Visits Authorized [id number] Ref Not Required PCP Requested Referral 06/17/2024 06/17/2025 1 1 Specialty Diagnoses / Procedures Referred By Contac t Referred To Contact Ophthalmology Diagnoses Vision changes Procedures CONSULT TO OPHTHALMOLOGY OFFICE/OUTPATIENT NEW [facility] MDM 60 MINUTES Judith Pickard APRN.COMPENSATION ASSOCIATE [address] [place] [address] Referral ID Status Reason Start Date Expiration Date Visits Requested Visits Authorized [id number] Authorized PCP Requested Referral 07/02/2025 1 1 Specialty Diagnoses / Procedures Referred By Contac t Referred To Contact Neurology Diagnoses Disorder of labyrinth, unspecified laterality Procedures CONSULT TO NEUROLOGY OFFICE/OUTPATIENT [facility] 60 MINUTES Judith Pickard APRN.COMPENSATION ASSOCIATE [address] [place] [address] Referral ID Status Reason Start Date Expiration Date Visits Requested Visits Authorized [id number] Authorized PCP Requested Referral 07/06/2025 1 1 Specialty Diagnoses / Procedures Referred By Contac t Referred To Contact Diagnoses Intractable chronic migraine with aura and without status migrainosus Missy Hirsch PA-C [address] [place] [address] Referral ID Status Reason Start Date Expiration Date V isits Requested Visits Authorized [id number] Pending Review 07/27/2024 09/25/2024 1 1 Referral ID Status Reason Start Date Expiration Date V isits Requested Visits Authorized [id number] Pending Review 07/27/2024 09/25/2024 1 1 Specialty Diagnoses / Procedures Referred By Contac t Referred To Contact MR IMAGING Diagnoses Worsening headaches Procedures MRI BRAIN WO/W IVCON MRI BRAIN BRAIN STEM W/O W/CONTRAST MATERIAL Missy Hirsch PA-C [address] [place] [address] [place] [address] Referral ID Status Reason Start Date Expiration Date Visits Requested Visits Authorized [id number] Authorized Auto-Generat ed Referral 07/27/2024 08/26/2025 1 1 Referral ID Status Reason Start Date Expiration Date V isits Requested Visits Authorized [id number] Closed Auto-Generate d Referral 07/27/2024 08/26/2025 1 1 Specialty Diagnoses / Procedures Referred By Contac t Referred To Contact CT IMAGING Diagnoses 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) Procedures CT ABD/PEL W IVCON CT ABD & PELVIS W/CONTRAST César Suggs, DO [address] [place] [address] [place] [address] Referral ID Status Reason Start Date Expiration Date Visits Requested Visits Authorized [id number] Authorized Auto-Generat ed Referral 4 10/03/2025 1 1 Specialty Diagnoses / Procedures Referred By Donnie dietrich Referred To Contact CT IMAGING Diagnoses 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 DATE CREATED AUTHOR AUTHOR'S ORGANIZ ATION 03/13/2018 [facility] DATE CREATED AUTHOR AUTHOR'S ORGANIZ ATION 06/26/2019 [facility] DATE CREATED AUTHOR AUTHOR'S ORGANIZ ATION 05/02/2021 [facility] DATE CREATED AUTHOR AUTHOR'S ORGANIZ ATION 07/15/2021 [facility] DATE CREATED AUTHOR AUTHOR'S ORGANIZ ATION 09/09/2021 [facility] DATE CREATED AUTHOR AUTHOR'S ORGANIZ ATION 09/11/2021 [facility] DATE CREATED AUTHOR AUTHOR'S ORGANIZ ATION 06/21/2022 [facility] DATE CREATED AUTHOR AUTHOR'S ORGANIZ ATION 08/08/2022 [facility] DATE CREATED AUTHOR AUTHOR'S ORGANIZ ATION 04/13/[address] 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) César Suggs, DO [address] [place] [address] [facility] [address] [place] [address] Referral ID Status Reason Start Date Expiration Date V isits Requested Visits Authorized [id number] Authorized 09/03/2024 12/02/2024 [address] Specialty Diagnoses / Procedures Referred By Contac t Referred To Contact CT IMAGING Diagnoses 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) Procedures CT CHEST W IVCON DIAGNOSTIC COMPUTED TOMOGRAPHY THORAX W/CONTRAST Melba Escudero MD [address] [email or web address] [address] [address] [facility] [place] [address] Referral ID Status Reason Start Date Expiration Date V isits Requested Visits Authorized [id number] Closed Auto-Generate d Referral 12/29/2022 10/30/2023 1 1 Reason Comments Chemotherapy Treatment Specialty Diagnoses / Procedures Referred By Contac t Referred To Contact Diagnoses 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 [address] [place] [address] Referral ID Status Reason Start Date Expiration Date V isits Requested Visits Authorized [id number] Closed PCP Requested Referral 05/03/2022 05/03/2023 1 [...] Imodium Reason Comments Care Coordination Admitted to [facility] Reason Comments Appointment Reason Comments Conductor/Engineer - Hospital Follow Up Reason Comments Appointment Reason Comments Refill Request Reason Comments Established Patient Reason Comments Consent 5024 - Non-Interventional Reason Comments Conductor/Engineer - Other Symptoms Reason Onset Date Comments [...] itch Specialty Diagnoses / Procedures Referred By [facility] Referred To Contact Diagnoses Grade 2 follicular lymphoma of lymph nodes of multiple regions ([facility]) Anca Almonte MD [address] [place] [address] [facility] [address] [place] [address] Referral ID Status Reason Start Date Expiration Date V isits Requested Visits Authorized [id number] Authorized 12/17/2022 03/17/2023 99 99 Reason Comments Ocular Hypertension Follow Up Patient he re as directed for intraocular pressure check Both Eyes. Reason Comments Medication Question Specialty Diagnoses / Procedures Referred By [facility] Referred To Contact Diagnoses Grade 2 follicular lymphoma of lymph nodes of multiple regions ([facility]) Anca Almonte MD [address] [place] [address] [facility] [address] [place] [address] Reason Comments AVS 12/17/22 Reason Comments Pain (Shoulder Pain) LEFT shoulder blade x 2 weeks Reason Comments Results Shoulder xray result s Reason Comments Follow Up 3 month follow up Reason Onset Date Comments Refill Request 04/17/2023 Reason Comments Opened In Error Reason Comments Physical Therapy Specialty Diagnoses / Procedures Referred By [facility] Referred To Contact [facility] Diagnoses Left arm pain Neck pain Procedures CONSULT TO PHYSICAL THERAPY PHYSICAL THERAPY EVALUATION HIGH COMPLEX 45 MINS Sylvia Lizama MD [address] [place] [address] [facility] [address] [place] [address] Referral ID Status Reason Start Date Expiration Date Visits Requested Visits Authorized [id number] Authorized PCP Requested Referral Auto-Generate d Referral 04/03/2023 04/02/2024 99 99 Reason Comments Established Patient Reason Comments Follow Up 3 month Reason Comments CPAP Supplies order Referral ID Status Reason Start Date Expiration Date V isits Requested Visits Authorized [id number] Closed Auto-Generate d Referral 08/30/2022 09/29/2023 1 1 Specialty Diagnoses / Procedures Referred By Contac t Referred To Contact CT IMAGING Diagnoses 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 [address] [place] [address] Referral ID Status Reason Start Date Expiration Date V isits Requested Visits Authorized [id number] Closed Auto-Generate d Referral 12/02/2022 12/25/2023 1 1 Reason Comments Followup cataract both eyes Primary Open Angle Glaucoma Follow Up Ocular Hypertension Follow Up Reason Comments Primary Open Angle Glaucoma Follow Up Pa tient here as directed for intraocular pressure check [...] REAL TIME IMGE Sathya Roa MD [address] [place] [address] [place] [address] Referral ID Status Reason Start Date Expiration Date V isits Requested Visits Authorized [id number] Closed Auto-Generate d Referral 10/27/2023 11/25/2024 1 1 Specialty Diagnoses / Procedures Referred By Contac t Referred To Contact CT IMAGING Diagnoses 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) Encounter for screening mammogram for malignant neoplasm of breast Procedures CT CHEST W IVCON DIAGNOSTIC COMPUTED TOMOGRAPHY THORAX W/CONTRAST Brendon Coppola, BECKY.COMPENSATION ASSOCIATE [address] [place] [address] [place] [address] Referral ID Status Reason Start Date Expiration Date V isits Requested Visits Authorized [id number] Closed Auto-Generate d Referral 12/16/2023 01/14/2025 [address] Specialty Diagnoses / Procedures Referred By Donnie t Referred To Contact CT IMAGING Diagnoses 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) Encounter for screening mammogram for malignant neoplasm of breast Procedures CT CHEST W IVCON DIAGNOSTIC COMPUTED TOMOGRAPHY THORAX W/CONTRAST Brendon Coppola, ROLL CUTTING OPERATOR.COMPENSATION ASSOCIATE [address] [place] [address] [place] [address] Reason Comments 6 Month Exam Reason Comments [...] Comments Transition Of Care 03/29/2024 TCM/ OON EDDI / Sof[facility] 03/26/24 Reason Comments Consult Diarrhea, abd crampi ng Specialty Diagnoses / Procedures Referred By Donnie Referred To Contact Gastroenterology Diagnoses Diarrhea, unspecified type Procedures CONSULT TO GASTROENTEROLOGY OFFICE/OUTPATIENT [facility] MDM 60 MINUTES Judith Pickard ROLL CUTTING OPERATOR.COMPENSATION ASSOCIATE [address] [place] [address] Referral ID Status Reason Start Date Expiration Date V isits Requested Visits Authorized [id number] Closed PCP Requested Referral 03/04/2024 03/04/2025 1 [...] up Specialty Diagnoses / [facility] Referred To Contact CT IMAGING Diagnoses 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) Enlarged lymph nodes Abnormal CT of the abdomen Procedures CT ABD/PEL W IVCON CT ABD & PELVIS W/CONTRAST Brendon Coppola, ROLL CUTTING OPERATOR.COMPENSATION ASSOCIATE [address] [place] [address] [place] [address] Referral ID Status Reason Start Date Expiration Date V isits Requested Visits Authorized [id number] Closed Auto-Generate d Referral 01/08/2024 02/06/2025 1 1 Specialty Diagnoses / Procedures Referred By Contac t Referred To Contact CT IMAGING Diagnoses 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) Enlarged lymph nodes Abnormal CT of the abdomen Procedures CT ABD/PEL W IVCON CT ABD & PELVIS W/CONTRAST Brendon Coppola, ROLL CUTTING OPERATOR.COMPENSATION ASSOCIATE [address] [place] [address] [place] [address] Reason Comments Radiology US Specialty Diagnoses / Procedures Referred By Contac t Referred To Contact US IMAGING Diagnoses Soft tissue mass Procedures US EXTREMITY MASS/FLUID COLLECTION LEFT Sylvia Lizama MD [address] [place] [address] [place] [address] Referral ID Status Reason Start Date Expiration Date V isits Requested Visits Authorized [id number] Closed Auto-Generate d Referral 04/02/2024 05/02/2025 1 1 Reason Onset Date Comments Transition Of Care 04/19/2024 TCM followup Reason Comments Vertigo 4 week follow up Reason Comments Urinary Frequency Frequency and burnin g x 1 week Reason Comments Results Urine Cx mixed Reason Comments ER F/U [facility] 05/08/24 Reason Comments Pain Left shoulder/arm Reason Comments Future Appointment Reason Comments Hypertension Reason Comments ER F/U [facility] 07/04/24 Hyperte ntion Reason Comments New Patient Evaluation Disorder labyrint h Specialty Diagnoses / Procedures Referred By Contac t Referred To Contact Neurology Diagnoses Disorder of labyrinth, unspecified laterality Procedures CONSULT TO NEUROLOGY OFFICE/OUTPATIENT NEW [facility]IGH MDM 60 MINUTES Judith Pickard ROLL CUTTING OPERATOR.COMPENSATION ASSOCIATE [address] [place] [address] Referral ID Status Reason Start Date Expiration Date V isits Requested Visits Authorized [id number] Closed PCP Requested Referral 07/13/2024 07/06/2025 1 1 Reason Comments Insurance Authorization Prior authorizat ion [employer] Reason Comments low blood pressure Specialty Diagnoses / Procedures Referred By Contac t Referred To Contact MR IMAGING Diagnoses Worsening headaches Procedures MRI BRAIN WO/W IVCON MRI BRAIN BRAIN STEM W/O W/CONTRAST MATERIAL Missy Hirsch PA-C [address] [place] [address] [place] [address] Referral ID Status Reason Start Date Expiration Date V isits Requested Visits Authorized [id number] Closed Auto-Generate d Referral 07/27/2024 08/26/2025 1 1 Specialty Diagnoses / Procedures Referred By Contac t Referred To Contact CT IMAGING Diagnoses 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) Procedures CT CHEST W IVCON DIAGNOSTIC COMPUTED TOMOGRAPHY THORAX W/CONTRAST Brendon Coppola APRN.COMPENSATION ASSOCIATE [address] [place] [address] Ct Imaging [facility] Referral ID Status Reason Start Date Expiration Date V isits Requested Visits Authorized [id number] Closed Auto-Generate d Referral 04/26/2024 05/26/2025 1 1 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 Reason Comments avs Reason Comments Benefits Investigation Reason Comments burning with urination Burning x 2 days, ear pain, chest congestion, cough and ROBIN x 2 weeks Reason Onset Date Comments Refill Request 11/02/2024 Reason Onset Date Comments Refill Request 11/08/2024 Reason Comments Cough Specialty Diagnoses / Procedures Referred By Contac t Referred To Contact CT IMAGING Diagnoses 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) Procedures CT ABD/PEL W IVCON CT ABD & PELVIS W/CONTRAST César Suggs, DO [address] [place] [address] Phone: tel: fax: CT IMAGING [facility] Referral ID Status Reason Start Date Expiration Date V isits Requested Visits Authorized [id number] Closed Auto-Generate d Referral 09/03/2024 10/03/2025 1 1 Reason Onset Date Comments Transition Of Care 12/20/2024 Reason Comments Elevated BP- TCM encounter Reason Comments Hospital F/U Reason Onset Date Comments Results 11/02/2024 Reason Onset Date Comments 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 02/24/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 Chart review Reason Comments Recheck 2 week BP check Reason Comments Hospital F/U Vertigo Diplopia Reason Comments increased BP reading Reason Comments PT Eval Specialty Diagnoses / Procedures Referred By Contac t Referred To Contact [facility] Diagnoses Disorder of labyrinth, unspecified laterality Migraine with aura, not intractable, without status migrainosus Procedures PHYSICAL THERAPY EVALUATION HIGH COMPLEX 45 MINS Judith Pickard, ROLL CUTTING OPERATOR.COMPENSATION ASSOCIATE [address] [place] [address] Phone: tel: fax: [facility] [address] [place] [address] Referral ID Status Reason Start Date Expiration Date Visits Requested Visits Authorized [id number] Authorized PCP Requested Referral Auto-Generate d Referral 04/16/2025 04/15/2026 99 99 Reason Comments Hypertension Follow up Ordered Prescriptions (unrec ognized section and content) [...] or prosecute any alcohol or drug abuse patient.[facility] the event this information is protected by the Federal Confidentiality of Alcohol and Drug Abuse Patient Records regulations: The Federal rules restrict any use of the information to criminally investigate or prosecute any alcohol or drug abuse patient.[facility] Center[facility] the event this information is protected by the Federal Confidentiality of Alcohol and Drug Abuse Patient Records regulations: The Federal rules restrict any use of the information to criminally investigate or prosecute any alcohol or drug abuse patient.[facility] Center[facility] the event this information is protected by the Federal Confidentiality of Alcohol and Drug Abuse Patient Records regulations: The Federal rules restrict any use of the information to criminally investigate or prosecute any alcohol or drug abuse patient.[facility] Center[facility] the event this information is protected by the Federal Confidentiality of Alcohol and Drug Abuse Patient Records regulations: The Federal rules restrict any use of the information to criminally investigate or prosecute any alcohol or drug abuse patient.[facility] CenterIn the event this information is protected by the Federal Confidentiality of Alcohol and Drug Abuse Patient Records regulations: The Federal rules restrict any use of the information to criminally investigate or prosecute any alcohol or drug abuse patient.[facility] Center[facility] the event this information is protected by the Federal Confidentiality of Alcohol and Drug Abuse Patient Records regulations: The Federal rules restrict any use of the information to criminally investigate or prosecute any alcohol or drug abuse patient.[facility] Center[facility] the event this information is protected by the Federal Confidentiality of Alcohol and Drug Abuse Patient Records regulations: The Federal rules restrict any use of the information to criminally investigate or prosecute any alcohol or drug abuse patient.[facility] CenterIn the event this information is protected by the Federal Confidentiality of Alcohol and Drug Abuse Patient Records regulations: The Federal rules restrict any use of the information to criminally investigate or prosecute any alcohol or drug abuse patient.[facility] CenterIn the event this information is protected by the Federal Confidentiality of Alcohol and Drug Abuse Patient Records regulations: The Federal rules restrict any use of the information to criminally investigate or prosecute any alcohol or drug abuse patient.[facility] CenterIn the event this information is protected by the Federal Confidentiality of Alcohol and Drug Abuse Patient Records regulations: The Federal rules restrict any use of the information to criminally investigate or prosecute any alcohol or drug abuse patient.[facility] CenterIn the event this information is protected by the Federal Confidentiality of Alcohol and Drug Abuse Patient Records regulations: The Federal rules restrict any use of the information to criminally investigate or prosecute any alcohol or drug abuse patient.[facility] CenterIn the event this information is protected by the Federal Confidentiality of Alcohol and Drug Abuse Patient Records regulations: The Federal rules restrict any use of the information to criminally investigate or prosecute any alcohol or drug abuse patient.[facility] CenterIn the event this information is protected by the Federal Confidentiality of Alcohol and Drug Abuse Patient Records regulations: The Federal rules restrict any use of the information to criminally investigate or prosecute any alcohol or drug abuse patient.[facility] CenterIn the event this information is protected by the Federal Confidentiality of Alcohol and Drug Abuse Patient Records regulations: The Federal rules restrict any use of the information to criminally investigate or prosecute any alcohol or drug abuse patient.[facility] CenterIn the event this information is protected by the Federal Confidentiality of Alcohol and Drug Abuse Patient Records regulations: The Federal rules restrict any use of the information to criminally investigate or prosecute any alcohol or drug abuse patient.[facility] CenterIn the event this information is protected by the Federal Confidentiality of Alcohol and Drug Abuse Patient Records regulations: The Federal rules restrict any use of the information to criminally investigate or prosecute any alcohol or drug abuse patient.[facility] CenterIn the event this information is protected by the Federal Confidentiality of Alcohol and Drug Abuse Patient Records regulations: The Federal rules restrict any use of the information to criminally investigate or prosecute any alcohol or drug abuse patient.[facility] CenterIn the event this information is protected by the Federal Confidentiality of Alcohol and Drug Abuse Patient Records regulations: The Federal rules restrict any use of the information to criminally investigate or prosecute any alcohol or drug abuse patient.[facility] CenterIn the event this information is protected by the Federal Confidentiality of Alcohol and Drug Abuse Patient Records regulations: The Federal rules restrict any use of the information to criminally investigate or prosecute any alcohol or drug abuse patient.[facility] CenterIn the event this information is protected by the Federal Confidentiality of Alcohol and Drug Abuse Patient Records regulations: The Federal rules restrict any use of the information to criminally investigate or prosecute any alcohol or drug abuse patient.[facility] CenterIn the event this information is protected by the Federal Confidentiality of Alcohol and Drug Abuse Patient Records regulations: The Federal rules restrict any use of the information to criminally investigate or prosecute any alcohol or drug abuse patient.[facility] CenterIn the event this information is protected by the Federal Confidentiality of Alcohol and Drug Abuse Patient Records regulations: The Federal rules restrict any use of the information to criminally investigate or prosecute any alcohol or drug abuse patient.[facility] CenterIn the event this information is protected by the Federal Confidentiality of Alcohol and Drug Abuse Patient Records regulations: The Federal rules restrict any use of the information to criminally investigate or prosecute any alcohol or drug abuse patient.[facility] CenterIn the event this information is protected by the Federal Confidentiality of Alcohol and Drug Abuse Patient Records regulations: The Federal rules restrict any use of the information to criminally investigate or prosecute any alcohol or drug abuse patient.[facility] CenterIn the event this information is protected by the Federal Confidentiality of Alcohol and Drug Abuse Patient Records regulations: The Federal rules restrict any use of the information to criminally investigate or prosecute any alcohol or drug abuse patient.[facility] CenterIn the event this information is protected by the Federal Confidentiality of Alcohol and Drug Abuse Patient Records regulations: The Federal rules restrict any use of the information to criminally investigate or prosecute any alcohol or drug abuse patient.[facility] CenterIn the event this information is protected by the Federal Confidentiality of Alcohol and Drug Abuse Patient Records regulations: The Federal rules restrict any use of the information to criminally investigate or prosecute any alcohol or drug abuse patient.[facility] CenterIn the event this information is protected by the Federal Confidentiality of Alcohol and Drug Abuse Patient Records regulations: The Federal rules restrict any use of the information to criminally investigate or prosecute any alcohol or drug abuse patient.[facility] CenterIn the event this information is protected by the Federal Confidentiality of Alcohol and Drug Abuse Patient Records regulations: The Federal rules restrict any use of the information to criminally investigate or prosecute any alcohol or drug abuse patient.[facility] CenterIn the event this information is protected by the Federal Confidentiality of Alcohol and Drug Abuse Patient Records regulations: The Federal rules restrict any use of the information to criminally investigate or prosecute any alcohol or drug abuse patient.[facility] CenterIn the event this information is protected by the Federal Confidentiality of Alcohol and Drug Abuse Patient Records regulations: The Federal rules restrict any use of the information to criminally investigate or prosecute any alcohol or drug abuse patient.[facility] CenterIn the event this information is protected by the Federal Confidentiality of Alcohol and Drug Abuse Patient Records regulations: The Federal rules restrict any use of the information to criminally investigate or prosecute any alcohol or drug abuse patient.[facility]In the event this information is protected by the Federal Confidentiality of Alcohol and Drug Abuse Patient Records regulations: The Federal rules restrict any use of the information to criminally investigate or prosecute any alcohol or drug abuse patient.[facility] CenterIn the event this information is protected by the Federal Confidentiality of Alcohol and Drug Abuse Patient Records regulations: The Federal rules restrict any use of the information to criminally investigate or prosecute any alcohol or drug abuse patient.[facility]In the event this information is protected by the Federal Confidentiality of Alcohol and Drug Abuse Patient Records regulations: The Federal rules restrict any use of the information to criminally investigate or prosecute any alcohol or drug abuse patient.[facility]In the event this information is protected by the Federal Confidentiality of Alcohol and Drug Abuse Patient Records regulations: The Federal rules restrict any use of the information to criminally investigate or prosecute any alcohol or drug abuse patient.[facility]In the event this information is protected by the Federal Confidentiality of Alcohol and Drug Abuse Patient Records regulations: The Federal rules restrict any use of the information to criminally investigate or prosecute any alcohol or drug abuse patient.[facility]In the event this information is protected by the Federal Confidentiality of Alcohol and Drug Abuse Patient Records regulations: The Federal rules restrict any use of the information to criminally investigate or prosecute any alcohol or drug abuse patient.[facility]In the event this information is protected by the Federal Confidentiality of Alcohol and Drug Abuse Patient Records regulations: The Federal rules restrict any use of the information to criminally investigate or prosecute any alcohol or drug abuse patient.[facility]In the event this information is protected by the Federal Confidentiality of Alcohol and Drug Abuse Patient Records regulations: The Federal rules restrict any use of the information to criminally investigate or prosecute any alcohol or drug abuse patient.[facility]In the event this information is protected by the Federal Confidentiality of Alcohol and Drug Abuse Patient Records regulations: The Federal rules restrict any use of the information to criminally investigate or prosecute any alcohol or drug abuse patient.[facility]In the event this information is protected by the Federal Confidentiality of Alcohol and Drug Abuse Patient Records regulations: The Federal rules restrict any use of the information to criminally investigate or prosecute any alcohol or drug abuse patient.[facility]In the event this information is protected by the Federal Confidentiality of Alcohol and Drug Abuse Patient Records regulations: The Federal rules restrict any use of the information to criminally investigate or prosecute any alcohol or drug abuse patient.[facility]In the event this information is protected by the Federal Confidentiality of Alcohol and Drug Abuse Patient Records regulations: The Federal rules restrict any use of the information to criminally investigate or prosecute any alcohol or drug abuse patient.[facility]In the event this information is protected by the Federal Confidentiality of Alcohol and Drug Abuse Patient Records regulations: The Federal rules restrict any use of the information to criminally investigate or prosecute any alcohol or drug abuse patient.[facility]In the event this information is protected by the Federal Confidentiality of Alcohol and Drug Abuse Patient Records regulations: The Federal rules restrict any use of the information to criminally investigate or prosecute any alcohol or drug abuse patient.[facility]In the event this information is protected by the Federal Confidentiality of Alcohol and Drug Abuse Patient Records regulations: The Federal rules restrict any use of the information to criminally investigate or prosecute any alcohol or drug abuse patient.[facility]In the event this information is protected by the Federal Confidentiality of Alcohol and Drug Abuse Patient Records regulations: The Federal rules restrict any use of the information to criminally investigate or prosecute any alcohol or drug abuse patient.[facility]In the event this information is protected by the Federal Confidentiality of Alcohol and Drug Abuse Patient Records regulations: The Federal rules restrict any use of the information to criminally investigate or prosecute any alcohol or drug abuse patient.[facility]In the event this information is protected by the Federal Confidentiality of Alcohol and Drug Abuse Patient Records regulations: The Federal rules restrict any use of the information to criminally investigate or prosecute any alcohol or drug abuse patient.[facility]In the event this information is protected by the Federal Confidentiality of Alcohol and Drug Abuse Patient Records regulations: The Federal rules restrict any use of the information to criminally investigate or prosecute any alcohol or drug abuse patient.[facility]In the event this information is protected by the Federal Confidentiality of Alcohol and Drug Abuse Patient Records regulations: The Federal rules restrict any use of the information to criminally investigate or prosecute any alcohol or drug abuse patient.[facility]In the event this information is protected by the Federal Confidentiality of Alcohol and Drug Abuse Patient Records regulations: The Federal rules restrict any use of the information to criminally investigate or prosecute any alcohol or drug abuse patient.[facility]In the event this information is protected by the Federal Confidentiality of Alcohol and Drug Abuse Patient Records regulations: The Federal rules restrict any use of the information to criminally investigate or prosecute any alcohol or drug abuse patient.[facility]In the event this information is protected by the Federal Confidentiality of Alcohol and Drug Abuse Patient Records regulations: The Federal rules restrict any use of the information to criminally investigate or prosecute any alcohol or drug abuse patient.[facility]In the event this information is protected by the Federal Confidentiality of Alcohol and Drug Abuse Patient Records regulations: The Federal rules restrict any use of the information to criminally investigate or prosecute any alcohol or drug abuse patient.[facility]In the event this information is protected by the Federal Confidentiality of Alcohol and Drug Abuse Patient Records regulations: The Federal rules restrict any use of the information to criminally investigate or prosecute any alcohol or drug abuse patient.[facility]In the event this information is protected by the Federal Confidentiality of Alcohol and Drug Abuse Patient Records regulations: The Federal rules restrict any use of the information to criminally investigate or prosecute any alcohol or drug abuse patient.[facility]In the event this information is protected by the Federal Confidentiality of Alcohol and Drug Abuse Patient Records regulations: The Federal rules restrict any use of the information to criminally investigate or prosecute any alcohol or drug abuse patient.[facility]In the event this information is protected by the Federal Confidentiality of Alcohol and Drug Abuse Patient Records regulations: The Federal rules restrict any use of the information to criminally investigate or prosecute any alcohol or drug abuse patient.[facility]In the event this information is protected by the Federal Confidentiality of Alcohol and Drug Abuse Patient Records regulations: The Federal rules restrict any use of the information to criminally investigate or prosecute any alcohol or drug abuse patient.[facility]In the event this information is protected by the Federal Confidentiality of Alcohol and Drug Abuse Patient Records regulations: The Federal rules restrict any use of the information to criminally investigate or prosecute any alcohol or drug abuse patient.[facility]In the event this information is protected by the Federal Confidentiality of Alcohol and Drug Abuse Patient Records regulations: The Federal rules restrict any use of the information to criminally investigate or prosecute any alcohol or drug abuse patient.[facility]In the event this information is protected by the Federal Confidentiality of Alcohol and Drug Abuse Patient Records regulations: The Federal rules restrict any use of the information to criminally investigate or prosecute any alcohol or drug abuse patient.[facility]In the event this information is protected by the Federal Confidentiality of Alcohol and Drug Abuse Patient Records regulations: The Federal rules restrict any use of the information to criminally investigate or prosecute any alcohol or drug abuse patient.[facility]In the event this information is protected by the Federal Confidentiality of Alcohol and Drug Abuse Patient Records regulations: The Federal rules restrict any use of the information to criminally investigate or prosecute any alcohol or drug abuse patient.[facility]In the event this information is protected by the Federal Confidentiality of Alcohol and Drug Abuse Patient Records regulations: The Federal rules restrict any use of the information to criminally investigate or prosecute any alcohol or drug abuse patient.[facility]In the event this information is protected by the Federal Confidentiality of Alcohol and Drug Abuse Patient Records regulations: The Federal rules restrict any use of the information to criminally investigate or prosecute any alcohol or drug abuse patient.[facility]In the event this information is protected by the Federal Confidentiality of Alcohol and Drug Abuse Patient Records regulations: The Federal rules restrict any use of the information to criminally investigate or prosecute any alcohol or drug abuse patient.[facility]In the event this information is protected by the Federal Confidentiality of Alcohol and Drug Abuse Patient Records regulations: The Federal rules restrict any use of the information to criminally investigate or prosecute any alcohol or drug abuse patient.[facility]In the event this information is protected by the Federal Confidentiality of Alcohol and Drug Abuse Patient Records regulations: The Federal rules restrict any use of the information to criminally investigate or prosecute any alcohol or drug abuse patient.[facility]In the event this information is protected by the Federal Confidentiality of Alcohol and Drug Abuse Patient Records regulations: The Federal rules restrict any use of the information to criminally investigate or prosecute any alcohol or drug abuse patient.[facility]In the event this information is protected by the Federal Confidentiality of Alcohol and Drug Abuse Patient Records regulations: The Federal rules restrict any use of the information to criminally investigate or prosecute any alcohol or drug abuse patient.[facility]In the event this information is protected by the Federal Confidentiality of Alcohol and Drug Abuse Patient Records regulations: The Federal rules restrict any use of the information to criminally investigate or prosecute any alcohol or drug abuse patient.[facility]In the event this information is protected by the Federal Confidentiality of Alcohol and Drug Abuse Patient Records regulations: The Federal rules restrict any use of the information to criminally investigate or prosecute any alcohol or drug abuse patient.[facility]In the event this information is protected by the Federal Confidentiality of Alcohol and Drug Abuse Patient Records regulations: The Federal rules restrict any use of the information to criminally investigate or prosecute any alcohol or drug abuse patient.[facility]In the event this information is protected by the Federal Confidentiality of Alcohol and Drug Abuse Patient Records regulations: The Federal rules restrict any use of the information to criminally investigate or prosecute any alcohol or drug abuse patient.[facility]In the event this information is protected by the Federal Confidentiality of Alcohol and Drug Abuse Patient Records regulations: The Federal rules restrict any use of the information to criminally investigate or prosecute any alcohol or drug abuse patient.[facility]In the event this information is protected by the Federal Confidentiality of Alcohol and Drug Abuse Patient Records regulations: The Federal rules restrict any use of the information to criminally investigate or prosecute any alcohol or drug abuse patient.[facility]In the event this information is protected by the Federal Confidentiality of Alcohol and Drug Abuse Patient Records regulations: The Federal rules restrict any use of the information to criminally investigate or prosecute any alcohol or drug abuse patient.[facility]In the event this information is protected by the Federal Confidentiality of Alcohol and Drug Abuse Patient Records regulations: The Federal rules restrict any use of the information to criminally investigate or prosecute any alcohol or drug abuse patient.[facility]In the event this information is protected by the Federal Confidentiality of Alcohol and Drug Abuse Patient Records regulations: The Federal rules restrict any use of the information to criminally investigate or prosecute any alcohol or drug abuse patient.[facility]In the event this information is protected by the Federal Confidentiality of Alcohol and Drug Abuse Patient Records regulations: The Federal rules restrict any use of the information to criminally investigate or prosecute any alcohol or drug abuse patient.[facility]In the event this information is protected by the Federal Confidentiality of Alcohol and Drug Abuse Patient Records regulations: The Federal rules restrict any use of the information to criminally investigate or prosecute any alcohol or drug abuse patient.[facility]In the event this information is protected by the Federal Confidentiality of Alcohol and Drug Abuse Patient Records regulations: The Federal rules restrict any use of the information to criminally investigate or prosecute any alcohol or drug abuse patient.[facility]In the event this information is protected by the Federal Confidentiality of Alcohol and Drug Abuse Patient Records regulations: The Federal rules restrict any use of the information to criminally investigate or prosecute any alcohol or drug abuse patient.[facility]In the event this information is protected by the Federal Confidentiality of Alcohol and Drug Abuse Patient Records regulations: The Federal rules restrict any use of the information to criminally investigate or prosecute any alcohol or drug abuse patient.[facility]In the event this information is protected by the Federal Confidentiality of Alcohol and Drug Abuse Patient Records regulations: The Federal rules restrict any use of the information to criminally investigate or prosecute any alcohol or drug abuse patient.[facility]In the event this information is protected by the Federal Confidentiality of Alcohol and Drug Abuse Patient Records regulations: The Federal rules restrict any use of the information to criminally investigate or prosecute any alcohol or drug abuse patient.[facility]In the event this information is protected by the Federal Confidentiality of Alcohol and Drug Abuse Patient Records regulations: The Federal rules restrict any use of the information to criminally investigate or prosecute any alcohol or drug abuse patient.[facility]In the event this information is protected by the Federal Confidentiality of Alcohol and Drug Abuse Patient Records regulations: The Federal rules restrict any use of the information to criminally investigate or prosecute any alcohol or drug abuse patient.[facility]In the event this information is protected by the Federal Confidentiality of Alcohol and Drug Abuse Patient Records regulations: The Federal rules restrict any use of the information to criminally investigate or prosecute any alcohol or drug abuse patient.[facility]In the event this information is protected by the Federal Confidentiality of Alcohol and Drug Abuse Patient Records regulations: The Federal rules restrict any use of the information to criminally investigate or prosecute any alcohol or drug abuse patient.[facility]In the event this information is protected by the Federal Confidentiality of Alcohol and Drug Abuse Patient Records regulations: The Federal rules restrict any use of the information to criminally investigate or prosecute any alcohol or drug abuse patient.[facility]In the event this information is protected by the Federal Confidentiality of Alcohol and Drug Abuse Patient Records regulations: The Federal rules restrict any use of the information to criminally investigate or prosecute any alcohol or drug abuse patient.[facility]In the event this information is protected by the Federal Confidentiality of Alcohol and Drug Abuse Patient Records regulations: The Federal rules restrict any use of the information to criminally investigate or prosecute any alcohol or drug abuse patient.[facility] CenterIn the event this information is protected by the Federal Confidentiality of Alcohol and Drug Abuse Patient Records regulations: The Federal rules restrict any use of the information to criminally investigate or prosecute any alcohol or drug abuse patient.[facility]In the event this information is protected by the Federal Confidentiality of Alcohol and Drug Abuse Patient Records regulations: The Federal rules restrict any use of the information to criminally investigate or prosecute any alcohol or drug abuse patient.[facility] CenterIn the event this information is protected by the Federal Confidentiality of Alcohol and Drug Abuse Patient Records regulations: The Federal rules restrict any use of the information to criminally investigate or prosecute any alcohol or drug abuse patient.[facility] CenterIn the event this information is protected by the Federal Confidentiality of Alcohol and Drug Abuse Patient Records regulations: The Federal rules restrict any use of the information to criminally investigate or prosecute any alcohol or drug abuse patient.[facility] CenterIn the event this information is protected by the Federal Confidentiality of Alcohol and Drug Abuse Patient Records regulations: The Federal rules restrict any use of the information to criminally investigate or prosecute any alcohol or drug abuse patient.[facility] CenterIn the event this information is protected by the Federal Confidentiality of Alcohol and Drug Abuse Patient Records regulations: The Federal rules restrict any use of the information to criminally investigate or prosecute any alcohol or drug abuse patient.[facility] CenterIn the event this information is protected by the Federal Confidentiality of Alcohol and Drug Abuse Patient Records regulations: The Federal rules restrict any use of the information to criminally investigate or prosecute any alcohol or drug abuse patient.[facility] CenterIn the event this information is protected by the Federal Confidentiality of Alcohol and Drug Abuse Patient Records regulations: The Federal rules restrict any use of the information to criminally investigate or prosecute any alcohol or drug abuse patient.[facility] CenterIn the event this information is protected by the Federal Confidentiality of Alcohol and Drug Abuse Patient Records regulations: The Federal rules restrict any use of the information to criminally investigate or prosecute any alcohol or drug abuse patient.[facility] CenterIn the event this information is protected by the Federal Confidentiality of Alcohol and Drug Abuse Patient Records regulations: The Federal rules restrict any use of the information to criminally investigate or prosecute any alcohol or drug abuse patient.[facility] CenterIn the event this information is protected by the Federal Confidentiality of Alcohol and Drug Abuse Patient Records regulations: The Federal rules restrict any use of the information to criminally investigate or prosecute any alcohol or drug abuse patient.[facility] CenterIn the event this information is protected by the Federal Confidentiality of Alcohol and Drug Abuse Patient Records regulations: The Federal rules restrict any use of the information to criminally investigate or prosecute any alcohol or drug abuse patient.[facility] CenterIn the event this information is protected by the Federal Confidentiality of Alcohol and Drug Abuse Patient Records regulations: The Federal rules restrict any use of the information to criminally investigate or prosecute any alcohol or drug abuse patient.[facility]In the event this information is protected by the Federal Confidentiality of Alcohol and Drug Abuse Patient Records regulations: The Federal rules restrict any use of the information to criminally investigate or prosecute any alcohol or drug abuse patient.[facility] CenterIn the event this information is protected by the Federal Confidentiality of Alcohol and Drug Abuse Patient Records regulations: The Federal rules restrict any use of the information to criminally investigate or prosecute any alcohol or drug abuse patient.[facility] CenterIn the event this information is protected by the Federal Confidentiality of Alcohol and Drug Abuse Patient Records regulations: The Federal rules restrict any use of the information to criminally investigate or prosecute any alcohol or drug abuse patient.[facility] CenterIn the event this information is protected by the Federal Confidentiality of Alcohol and Drug Abuse Patient Records regulations: The Federal rules restrict any use of the information to criminally investigate or prosecute any alcohol or drug abuse patient.[facility] CenterIn the event this information is protected by the Federal Confidentiality of Alcohol and Drug Abuse Patient Records regulations: The Federal rules restrict any use of the information to criminally investigate or prosecute any alcohol or drug abuse patient.[facility] CenterIn the event this information is protected by the Federal Confidentiality of Alcohol and Drug Abuse Patient Records regulations: The Federal rules restrict any use of the information to criminally investigate or prosecute any alcohol or drug abuse patient.[facility] CenterIn the event this information is protected by the Federal Confidentiality of Alcohol and Drug Abuse Patient Records regulations: The Federal rules restrict any use of the information to criminally investigate or prosecute any alcohol or drug abuse patient.[facility] CenterIn the event this information is protected by the Federal Confidentiality of Alcohol and Drug Abuse Patient Records regulations: The Federal rules restrict any use of the information to criminally investigate or prosecute any alcohol or drug abuse patient.[facility]In the event this information is protected by the Federal Confidentiality of Alcohol and Drug Abuse Patient Records regulations: The Federal rules restrict any use of the information to criminally investigate or prosecute any alcohol or drug abuse patient.[facility]In the event this information is protected by the Federal Confidentiality of Alcohol and Drug Abuse Patient Records regulations: The Federal rules restrict any use of the information to criminally investigate or prosecute any alcohol or drug abuse patient.[facility]In the event this information is protected by the Federal Confidentiality of Alcohol and Drug Abuse Patient Records regulations: The Federal rules restrict any use of the information to criminally investigate or prosecute any alcohol or drug abuse patient.[facility]In the event this information is protected by the Federal Confidentiality of Alcohol and Drug Abuse Patient Records regulations: The Federal rules restrict any use of the information to criminally investigate or prosecute any alcohol or drug abuse patient.[facility]In the event this information is protected by the Federal Confidentiality of Alcohol and Drug Abuse Patient Records regulations: The Federal rules restrict any use of the information to criminally investigate or prosecute any alcohol or drug abuse patient.[facility]In the event this information is protected by the Federal Confidentiality of Alcohol and Drug Abuse Patient Records regulations: The Federal rules restrict any use of the information to criminally investigate or prosecute any alcohol or drug abuse patient.[facility]In the event this information is protected by the Federal Confidentiality of Alcohol and Drug Abuse Patient Records regulations: The Federal rules restrict any use of the information to criminally investigate or prosecute any alcohol or drug abuse patient.[facility]In the event this information is protected by the Federal Confidentiality of Alcohol and Drug Abuse Patient Records regulations: The Federal rules restrict any use of the information to criminally investigate or prosecute any alcohol or drug abuse patient.[facility]In the event this information is protected by the Federal Confidentiality of Alcohol and Drug Abuse Patient Records regulations: The Federal rules restrict any use of the information to criminally investigate or prosecute any alcohol or drug abuse patient.[facility]In the event this information is protected by the Federal Confidentiality of Alcohol and Drug Abuse Patient Records regulations: The Federal rules restrict any use of the information to criminally investigate or prosecute any alcohol or drug abuse patient.[facility]In the event this information is protected by the Federal Confidentiality of Alcohol and Drug Abuse Patient Records regulations: The Federal rules restrict any use of the information to criminally investigate or prosecute any alcohol or drug abuse patient.[facility]In the event this information is protected by the Federal Confidentiality of Alcohol and Drug Abuse Patient Records regulations: The Federal rules restrict any use of the information to criminally investigate or prosecute any alcohol or drug abuse patient.[facility]In the event this information is protected by the Federal Confidentiality of Alcohol and Drug Abuse Patient Records regulations: The Federal rules restrict any use of the information to criminally investigate or prosecute any alcohol or drug abuse patient.[facility]In the event this information is protected by the Federal Confidentiality of Alcohol and Drug Abuse Patient Records regulations: The Federal rules restrict any use of the information to criminally investigate or prosecute any alcohol or drug abuse patient.[facility]In the event this information is protected by the Federal Confidentiality of Alcohol and Drug Abuse Patient Records regulations: The Federal rules restrict any use of the information to criminally investigate or prosecute any alcohol or drug abuse patient.[facility]In the event this information is protected by the Federal Confidentiality of Alcohol and Drug Abuse Patient Records regulations: The Federal rules restrict any use of the information to criminally investigate or prosecute any alcohol or drug abuse patient.[facility]In the event this information is protected by the Federal Confidentiality of Alcohol and Drug Abuse Patient Records regulations: The Federal rules restrict any use of the information to criminally investigate or prosecute any alcohol or drug abuse patient.[facility]In the event this information is protected by the Federal Confidentiality of Alcohol and Drug Abuse Patient Records regulations: The Federal rules restrict any use of the information to criminally investigate or prosecute any alcohol or drug abuse patient.[facility]In the event this information is protected by the Federal Confidentiality of Alcohol and Drug Abuse Patient Records regulations: The Federal rules restrict any use of the information to criminally investigate or prosecute any alcohol or drug abuse patient.[facility]In the event this information is protected by the Federal Confidentiality of Alcohol and Drug Abuse Patient Records regulations: The Federal rules restrict any use of the information to criminally investigate or prosecute any alcohol or drug abuse patient.[facility]In the event this information is protected by the Federal Confidentiality of Alcohol and Drug Abuse Patient Records regulations: The Federal rules restrict any use of the information to criminally investigate or prosecute any alcohol or drug abuse patient.[facility]In the event this information is protected by the Federal Confidentiality of Alcohol and Drug Abuse Patient Records regulations: The Federal rules restrict any use of the information to criminally investigate or prosecute any alcohol or drug abuse patient.[facility]In the event this information is protected by the Federal Confidentiality of Alcohol and Drug Abuse Patient Records regulations: The Federal rules restrict any use of the information to criminally investigate or prosecute any alcohol or drug abuse patient.[facility]In the event this information is protected by the Federal Confidentiality of Alcohol and Drug Abuse Patient Records regulations: The Federal rules restrict any use of the information to criminally investigate or prosecute any alcohol or drug abuse patient.[facility]In the event this information is protected by the Federal Confidentiality of Alcohol and Drug Abuse Patient Records regulations: The Federal rules restrict any use of the information to criminally investigate or prosecute any alcohol or drug abuse patient.[facility]In the event this information is protected by the Federal Confidentiality of Alcohol and Drug Abuse Patient Records regulations: The Federal rules restrict any use of the information to criminally investigate or prosecute any alcohol or drug abuse patient.[facility]In the event this information is protected by the Federal Confidentiality of Alcohol and Drug Abuse Patient Records regulations: The Federal rules restrict any use of the information to criminally investigate or prosecute any alcohol or drug abuse patient.[facility]In the event this information is protected by the Federal Confidentiality of Alcohol and Drug Abuse Patient Records regulations: The Federal rules restrict any use of the information to criminally investigate or prosecute any alcohol or drug abuse patient.[facility]In the event this information is protected by the Federal Confidentiality of Alcohol and Drug Abuse Patient Records regulations: The Federal rules restrict any use of the information to criminally investigate or prosecute any alcohol or drug abuse patient.[facility]In the event this information is protected by the Federal Confidentiality of Alcohol and Drug Abuse Patient Records regulations: The Federal rules restrict any use of the information to criminally investigate or prosecute any alcohol or drug abuse patient.[facility]In the event this information is protected by the Federal Confidentiality of Alcohol and Drug Abuse Patient Records regulations: The Federal rules restrict any use of the information to criminally investigate or prosecute any alcohol or drug abuse patient.[facility]In the event this information is protected by the Federal Confidentiality of Alcohol and Drug Abuse Patient Records regulations: The Federal rules restrict any use of the information to criminally investigate or prosecute any alcohol or drug abuse patient.[facility]In the event this information is protected by the Federal Confidentiality of Alcohol and Drug Abuse Patient Records regulations: The Federal rules restrict any use of the information to criminally investigate or prosecute any alcohol or drug abuse patient.[facility]In the event this information is protected by the Federal Confidentiality of Alcohol and Drug Abuse Patient Records regulations: The Federal rules restrict any use of the information to criminally investigate or prosecute any alcohol or drug abuse patient.[facility]In the event this information is protected by the Federal Confidentiality of Alcohol and Drug Abuse Patient Records regulations: The Federal rules restrict any use of the information to criminally investigate or prosecute any alcohol or drug abuse patient.[facility]In the event this information is protected by the Federal Confidentiality of Alcohol and Drug Abuse Patient Records regulations: The Federal rules restrict any use of the information to criminally investigate or prosecute any alcohol or drug abuse patient.[facility]In the event this information is protected by the Federal Confidentiality of Alcohol and Drug Abuse Patient Records regulations: The Federal rules restrict any use of the information to criminally investigate or prosecute any alcohol or drug abuse patient.[facility]In the event this information is protected by the Federal Confidentiality of Alcohol and Drug Abuse Patient Records regulations: The Federal rules restrict any use of the information to criminally investigate or prosecute any alcohol or drug abuse patient.[facility]In the event this information is protected by the Federal Confidentiality of Alcohol and Drug Abuse Patient Records regulations: The Federal rules restrict any use of the information to criminally investigate or prosecute any alcohol or drug abuse patient.[facility]In the event this information is protected by the Federal Confidentiality of Alcohol and Drug Abuse Patient Records regulations: The Federal rules restrict any use of the information to criminally investigate or prosecute any alcohol or drug abuse patient.[facility]In the event this information is protected by the Federal Confidentiality of Alcohol and Drug Abuse Patient Records regulations: The Federal rules restrict any use of the information to criminally investigate or prosecute any alcohol or drug abuse patient.[facility]In the event this information is protected by the Federal Confidentiality of Alcohol and Drug Abuse Patient Records regulations: The Federal rules restrict any use of the information to criminally investigate or prosecute any alcohol or drug abuse patient.[facility]In the event this information is protected by the Federal Confidentiality of Alcohol and Drug Abuse Patient Records regulations: The Federal rules restrict any use of the information to criminally investigate or prosecute any alcohol or drug abuse patient.[facility]In the event this information is protected by the Federal Confidentiality of Alcohol and Drug Abuse Patient Records regulations: The Federal rules restrict any use of the information to criminally investigate or prosecute any alcohol or drug abuse patient.[facility]In the event this information is protected by the Federal Confidentiality of Alcohol and Drug Abuse Patient Records regulations: The Federal rules restrict any use of the information to criminally investigate or prosecute any alcohol or drug abuse patient.[facility]In the event this information is protected by the Federal Confidentiality of Alcohol and Drug Abuse Patient Records regulations: The Federal rules restrict any use of the information to criminally investigate or prosecute any alcohol or drug abuse patient.[facility]In the event this information is protected by the Federal Confidentiality of Alcohol and Drug Abuse Patient Records regulations: The Federal rules restrict any use of the information to criminally investigate or prosecute any alcohol or drug abuse patient.[facility]In the event this information is protected by the Federal Confidentiality of Alcohol and Drug Abuse Patient Records regulations: The Federal rules restrict any use of the information to criminally investigate or prosecute any alcohol or drug abuse patient.[facility]In the event this information is protected by the Federal Confidentiality of Alcohol and Drug Abuse Patient Records regulations: The Federal rules restrict any use of the information to criminally investigate or prosecute any alcohol or drug abuse patient.[facility]In the event this information is protected by the Federal Confidentiality of Alcohol and Drug Abuse Patient Records regulations: The Federal rules restrict any use of the information to criminally investigate or prosecute any alcohol or drug abuse patient.[facility]In the event this information is protected by the Federal Confidentiality of Alcohol and Drug Abuse Patient Records regulations: The Federal rules restrict any use of the information to criminally investigate or prosecute any alcohol or drug abuse patient.[facility]In the event this information is protected by the Federal Confidentiality of Alcohol and Drug Abuse Patient Records regulations: The Federal rules restrict any use of the information to criminally investigate or prosecute any alcohol or drug abuse patient.[facility]In the event this information is protected by the Federal Confidentiality of Alcohol and Drug Abuse Patient Records regulations: The Federal rules restrict any use of the information to criminally investigate or prosecute any alcohol or drug abuse patient.[facility]In the event this information is protected by the Federal Confidentiality of Alcohol and Drug Abuse Patient Records regulations: The Federal rules restrict any use of the information to criminally investigate or prosecute any alcohol or drug abuse patient.[facility]In the event this information is protected by the Federal Confidentiality of Alcohol and Drug Abuse Patient Records regulations: The Federal rules restrict any use of the information to criminally investigate or prosecute any alcohol or drug abuse patient.[facility]In the event this information is protected by the Federal Confidentiality of Alcohol and Drug Abuse Patient Records regulations: The Federal rules restrict any use of the information to criminally investigate or prosecute any alcohol or drug abuse patient.[facility]In the event this information is protected by the Federal Confidentiality of Alcohol and Drug Abuse Patient Records regulations: The Federal rules restrict any use of the information to criminally investigate or prosecute any alcohol or drug abuse patient.[facility]In the event this information is protected by the Federal Confidentiality of Alcohol and Drug Abuse Patient Records regulations: The Federal rules restrict any use of the information to criminally investigate or prosecute any alcohol or drug abuse patient.[facility]In the event this information is protected by the Federal Confidentiality of Alcohol and Drug Abuse Patient Records regulations: The Federal rules restrict any use of the information to criminally investigate or prosecute any alcohol or drug abuse patient.[facility]In the event this information is protected by the Federal Confidentiality of Alcohol and Drug Abuse Patient Records regulations: The Federal rules restrict any use of the information to criminally investigate or prosecute any alcohol or drug abuse patient.[facility]In the event this information is protected by the Federal Confidentiality of Alcohol and Drug Abuse Patient Records regulations: The Federal rules restrict any use of the information to criminally investigate or prosecute any alcohol or drug abuse patient.[facility]In the event this information is protected by the Federal Confidentiality of Alcohol and Drug Abuse Patient Records regulations: The Federal rules restrict any use of the information to criminally investigate or prosecute any alcohol or drug abuse patient.[facility]In the event this information is protected by the Federal Confidentiality of Alcohol and Drug Abuse Patient Records regulations: The Federal rules restrict any use of the information to criminally investigate or prosecute any alcohol or drug abuse patient.[facility]In the event this information is protected by the Federal Confidentiality of Alcohol and Drug Abuse Patient Records regulations: The Federal rules restrict any use of the information to criminally investigate or prosecute any alcohol or drug abuse patient.[facility]In the event this information is protected by the Federal Confidentiality of Alcohol and Drug Abuse Patient Records regulations: The Federal rules restrict any use of the information to criminally investigate or prosecute any alcohol or drug abuse patient.[facility]In the event this information is protected by the Federal Confidentiality of Alcohol and Drug Abuse Patient Records regulations: The Federal rules restrict any use of the information to criminally investigate or prosecute any alcohol or drug abuse patient.[facility] CenterIn the event this information is protected by the Federal Confidentiality of Alcohol and Drug Abuse Patient Records regulations: The Federal rules restrict any use of the information to criminally investigate or prosecute any alcohol or drug abuse patient.[facility] CenterIn the event this information is protected by the Federal Confidentiality of Alcohol and Drug Abuse Patient Records regulations: The Federal rules restrict any use of the information to criminally investigate or prosecute any alcohol or drug abuse patient.[facility] CenterIn the event this information is protected by the Federal Confidentiality of Alcohol and Drug Abuse Patient Records regulations: The Federal rules restrict any use of the information to criminally investigate or prosecute any alcohol or drug abuse patient.[facility] CenterIn the event this information is protected by the Federal Confidentiality of Alcohol and Drug Abuse Patient Records regulations: The Federal rules restrict any use of the information to criminally investigate or prosecute any alcohol or drug abuse patient.[facility] CenterIn the event this information is protected by the Federal Confidentiality of Alcohol and Drug Abuse Patient Records regulations: The Federal rules restrict any use of the information to criminally investigate or prosecute any alcohol or drug abuse patient.[facility] CenterIn the event this information is protected by the Federal Confidentiality of Alcohol and Drug Abuse Patient Records regulations: The Federal rules restrict any use of the information to criminally investigate or prosecute any alcohol or drug abuse patient.[facility] CenterIn the event this information is protected by the Federal Confidentiality of Alcohol and Drug Abuse Patient Records regulations: The Federal rules restrict any use of the information to criminally investigate or prosecute any alcohol or drug abuse patient.[facility] CenterIn the event this information is protected by the Federal Confidentiality of Alcohol and Drug Abuse Patient Records regulations: The Federal rules restrict any use of the information to criminally investigate or prosecute any alcohol or drug abuse patient.[facility] CenterIn the event this information is protected by the Federal Confidentiality of Alcohol and Drug Abuse Patient Records regulations: The Federal rules restrict any use of the information to criminally investigate or prosecute any alcohol or drug abuse patient.[facility] CenterIn the event this information is protected by the Federal Confidentiality of Alcohol and Drug Abuse Patient Records regulations: The Federal rules restrict any use of the information to criminally investigate or prosecute any alcohol or drug abuse patient.[facility] CenterIn the event this information is protected by the Federal Confidentiality of Alcohol and Drug Abuse Patient Records regulations: The Federal rules restrict any use of the information to criminally investigate or prosecute any alcohol or drug abuse patient.[facility] CenterIn the event this information is protected by the Federal Confidentiality of Alcohol and Drug Abuse Patient Records regulations: The Federal rules restrict any use of the information to criminally investigate or prosecute any alcohol or drug abuse patient.[facility] CenterIn the event this information is protected by the Federal Confidentiality of Alcohol and Drug Abuse Patient Records regulations: The Federal rules restrict any use of the information to criminally investigate or prosecute any alcohol or drug abuse patient.[facility] CenterIn the event this information is protected by the Federal Confidentiality of Alcohol and Drug Abuse Patient Records regulations: The Federal rules restrict any use of the information to criminally investigate or prosecute any alcohol or drug abuse patient.[facility] CenterIn the event this information is protected by the Federal Confidentiality of Alcohol and Drug Abuse Patient Records regulations: The Federal rules restrict any use of the information to criminally investigate or prosecute any alcohol or drug abuse patient.[facility] CenterIn the event this information is protected by the Federal Confidentiality of Alcohol and Drug Abuse Patient Records regulations: The Federal rules restrict any use of the information to criminally investigate or prosecute any alcohol or drug abuse patient.[facility] CenterIn the event this information is protected by the Federal Confidentiality of Alcohol and Drug Abuse Patient Records regulations: The Federal rules restrict any use of the information to criminally investigate or prosecute any alcohol or drug abuse patient.[facility] CenterIn the event this information is protected by the Federal Confidentiality of Alcohol and Drug Abuse Patient Records regulations: The Federal rules restrict any use of the information to criminally investigate or prosecute any alcohol or drug abuse patient.[facility] CenterIn the event this information is protected by the Federal Confidentiality of Alcohol and Drug Abuse Patient Records regulations: The Federal rules restrict any use of the information to criminally investigate or prosecute any alcohol or drug abuse patient.[facility] CenterIn the event this information is protected by the Federal Confidentiality of Alcohol and Drug Abuse Patient Records regulations: The Federal rules restrict any use of the information to criminally investigate or prosecute any alcohol or drug abuse patient.[facility] CenterIn the event this information is protected by the Federal Confidentiality of Alcohol and Drug Abuse Patient Records regulations: The Federal rules restrict any use of the information to criminally investigate or prosecute any alcohol or drug abuse patient.[facility] CenterIn the event this information is protected by the Federal Confidentiality of Alcohol and Drug Abuse Patient Records regulations: The Federal rules restrict any use of the information to criminally investigate or prosecute any alcohol or drug abuse patient.[facility] CenterIn the event this information is protected by the Federal Confidentiality of Alcohol and Drug Abuse Patient Records regulations: The Federal rules restrict any use of the information to criminally investigate or prosecute any alcohol or drug abuse patient.[facility] CenterIn the event this information is protected by the Federal Confidentiality of Alcohol and Drug Abuse Patient Records regulations: The Federal rules restrict any use of the information to criminally investigate or prosecute any alcohol or drug abuse patient.[facility] CenterIn the event this information is protected by the Federal Confidentiality of Alcohol and Drug Abuse Patient Records regulations: The Federal rules restrict any use of the information to criminally investigate or prosecute any alcohol or drug abuse patient.[facility] CenterIn the event this information is protected by the Federal Confidentiality of Alcohol and Drug Abuse Patient Records regulations: The Federal rules restrict any use of the information to criminally investigate or prosecute any alcohol or drug abuse patient.[facility] CenterIn the event this information is protected by the Federal Confidentiality of Alcohol and Drug Abuse Patient Records regulations: The Federal rules restrict any use of the information to criminally investigate or prosecute any alcohol or drug abuse patient.[facility] CenterIn the event this information is protected by the Federal Confidentiality of Alcohol and Drug Abuse Patient Records regulations: The Federal rules restrict any use of the information to criminally investigate or prosecute any alcohol or drug abuse patient.[facility] Care Teams (unrecognized sec tion and content) Excel Developer Relationship Specialty Start Date End Date Sylvia Lizama MD [address] [place], [place] [address] PCP - General Family Practice 12/02/18 [place] [id number] [place] [address] [id number] Referring Physical Medicine and Rehab 06/15/21 Excel Developer Relationship Specialty Start Date End Date Sylvia Lizama MD [address] [place] [address] PCP - General Family Practice 12/02/18 Rene Do, DO [id number] [place] [address] Referring Physical Medicine and Rehab 06/15/21 Excel Developer Relationship Specialty Start Date End Date Sylvia Lizama MD [address] [place] [address] PCP - General Family Practice 12/02/18 Rene Do, DO [address] [place] [address] Referring Physical Medicine and Rehab 06/15/21 Excel Developer Relationship Specialty Start Date End Date Sylvia Lizama MD [address] [place] [address] PCP - General Family Practice 12/02/18 Rene Do, DO [address] [place] [address] Referring Physical Medicine and Rehab 06/15/21 Excel Developer Relationship Specialty Start Date End Date Sylvia Lizama MD [address] [place] [address] PCP - General Family Practice 12/02/18 Rene Do, DO [address] [place] [address] Referring Physical Medicine and Rehab 06/15/21 Excel Developer Relationship Specialty Start Date End Date Sylvia Lizama MD [address] [place] [address] PCP - General Family Practice 12/02/18 Rene Do, DO [id number] [place] [address] Referring Physical Medicine and Rehab 06/15/21 Excel Developer Relationship Specialty Start Date End Date Sylvia Lizama MD [address] [place] [address] PCP - General Family Practice 12/02/18 Rene Do, [id number] [place] [address] Referring Physical Medicine and Rehab 06/15/21 Excel Developer Relationship Specialty Start Date End Date Sylvia Lizama MD [address] [place] [address] PCP - General Family Practice 12/02/18 Rene Do, [address] [address] Referring Physical Medicine and Rehab 06/15/21 Melba Escudero MD [address] [place] [address] Hematology/Oncology 05/03/22 Excel Developer Relationship Specialty Start Date End Date Sylvia Lizama MD [address] [place] [address] PCP - General Family Practice 12/02/18 Rene Do, [address] [address] Referring Physical Medicine and Rehab 06/15/21 Melba Escudero MD [address] [place] [address] Hematology/Oncology 05/03/22 Excel Developer Relationship Specialty Start Date End Date Sylvia Lizama MD [address] [place] [address] PCP - General Family Practice 12/02/18 Rene Do, [address] [address] Referring Physical Medicine and Rehab 06/15/21 Melba Escudero MD [address] [place] [address] Hematology/Oncology 05/03/22 Excel Developer Relationship Specialty Start Date End Date Sylvia Lizama MD [address] [place] [address] PCP - General Family Practice 12/02/18 Rene Do, DO [address] [place] [address] Referring Physical Medicine and Rehab 06/15/21 Melba Escudero MD [address] [place] [address] Hematology/Oncology 05/03/22 Excel Developer Relationship Specialty Start Date End Date Sylvia Lizama MD [address] [place] [address] PCP - General Family Practice 12/02/18 Rene Do, DO [address] [place] [address] Referring Physical Medicine and Rehab 06/15/21 Melba Escudero MD [address] [place] [address] Hematology/Oncology 05/03/22 Excel Developer Relationship Specialty Start Date End Date Sylvia Lizama MD [address] [place] [address] PCP - General Family Practice 12/02/18 Rene Do, DO [address] [place] [address] Referring Physical Medicine and Rehab 06/15/21 Melba Escudero MD [address] [place] [address] Hematology/Oncology 05/03/22 Excel Developer Relationship Specialty Start Date End Date Sylvia Lizama MD [address] [place] [address] PCP - General Family Practice 12/02/18 Hi Rene, [address] [address] Referring Physical Medicine and Rehab 06/15/21 Melba Escudero MD [address] [address] Hematology/Oncology 05/03/22 Chinyere Shea, FRANCESCO [address] [place] [address] Specialty Conductor/Engineer Hematology/Oncology 05/22/22 Excel Developer Relationship Specialty Start Date End Date Sylvia Lizama MD [address] [place] [address] PCP - General Family Practice 12/02/18 HiRene, [address] [address] Referring Physical Medicine and Rehab 06/15/21 Melba Escudero MD [address] [place] [address] Hematology/Oncology 05/03/22 Chinyere Shea, FRANCESCO [address] [place] [address] Specialty Conductor/Engineer Hematology/Oncology 05/22/22 Excel Developer Relationship Specialty Start Date End Date Sylvia Lizama MD [address] [place] [address] PCP - General Family Practice 12/02/18 Rene Do [address] [address] Referring Physical Medicine and Rehab 06/15/21 Melba Escudero MD [address] [place] [address] Hematology/Oncology 05/03/22 Chinyere Shea, FRANCESCO [address] [facility] [place] [address] Specialty Conductor/Engineer Hematology/Oncology 05/22/22 Excel Developer Relationship Specialty Start Date End Date Sylvia Lizama MD [address] [place] [address] PCP - General Family Practice 12/02/18 Rene Do, [address] [address] Referring Physical Medicine and Rehab 06/15/21 Melba Escudero MD [address] [place] [address] Hematology/Oncology 05/03/22 Chinyere Shea, FRANCESCO [address] [place] [facility] [place] [address] Specialty Conductor/Engineer Hematology/Oncology 05/22/22 Excel Developer Relationship Specialty Start Date End Date Sylvia Lizama MD [address] [place] [address] PCP - General Family Practice 12/02/18 Rene Do, [address] [address] Referring Physical Medicine and Rehab 06/15/21 Melba Escudero MD [address] [place] [address] Hematology/Oncology 05/03/22 Chinyere Shea, RN [address] [place] [address] Specialty Conductor/Engineer Hematology/Oncology 05/22/22 Excel Developer Relationship Specialty Start Date End Date Sylvia Lizama MD [address] [place] [address] PCP - General Family Practice 12/02/18 Rene Do, [address] [address] Referring Physical Medicine and Rehab 06/15/21 Melba Escudero MD [address] [place] [address] Hematology/Oncology 05/03/22 Chinyere Shea RN [address] [place] [address] Specialty Conductor/Engineer Hematology/Oncology 05/22/22 Excel Developer Relationship Specialty Start Date End Date Sylvia Lizama MD [address] [place] [address] PCP - General Family Practice 12/02/18 Rene Do, [address] [address] Referring Physical Medicine and Rehab 06/15/21 Melba Escudero MD [address] [place] [address] Hematology/Oncology 05/03/22 Chinyere Shea, FRANCESCO [address] [place] [address] Specialty Conductor/Engineer Hematology/Oncology 05/22/22 Excel Developer Relationship Specialty Start Date End Date Sylvia Lizama MD [address] [place] [address] PCP - General Family Practice 12/02/18 Rene Do, [address] [address] Referring Physical Medicine and Rehab 06/15/21 Melba Escudero MD [address] [place] [address] Hematology/Oncology 05/03/22 Chinyere Shea, RN [address] [place] [address] Specialty Conductor/Engineer Hematology/Oncology 05/22/22 Excel Developer Relationship Specialty Start Date End Date Sylvia Lizama MD [address] [place] [address] PCP - General Family Medicine 12/02/18 Rene Do, [address] [address] Referring Physical Medicine and Rehab 06/15/21 Melba Escudero MD [address] [facility] [place] [address] Hematology/Oncology 05/03/22 Chinyere Shea, RN [address] [place] [address] Specialty Conductor/Engineer Hematology/Oncology 05/22/22 Excel Developer Relationship Specialty Start Date End Date Sylvia Lizama MD [address] [place] [address] PCP - General Family Medicine 12/02/[address] [address] Referring Physical Medicine and Rehab 06/15/21 Melba Escudero MD [address] [place] [address] Hematology/Oncology 05/03/22 Chinyere Shea, FRANCESCO [address] [address] Specialty Conductor/Engineer Hematology/Oncology 05/22/22 Excel Developer Relationship Specialty Start Date End Date Sylvia Lizama MD [address] [place] [address] PCP - General Family Medicine 12/02/[address] [address] Referring Physical Medicine and Rehab 06/15/21 Melba Escudero MD [address] [place] [address] Hematology/Oncology 05/03/22 Chinyere Shea, RN [address] [place] [address] Specialty Conductor/Engineer Hematology/Oncology 05/22/22 Excel Developer Relationship Specialty Start Date End Date Sylvia Lizama MD [address] [place] [place] [address] PCP - General Family Medicine 12/02/[address] [address] Referring Physical Medicine and Rehab 06/15/21 Melba Escudero MD [address] [place] [address] Hematology/Oncology 05/03/22 Chinyere Shea, FRANCESCO [address] [place] [address] Specialty Conductor/Engineer Hematology/Oncology 05/22/22 Excel Developer Relationship Specialty Start Date End Date Sylvia Lizama MD [address] [place] [address] PCP - General Family Medicine 12/02/18 Rene Do, [address] [address] Referring Physical Medicine and Rehab 06/15/21 Melba Escudero MD [address] [place] [address] Hematology/Oncology 05/03/22 Chinyere Shea RN [address] [place] [address] Specialty Conductor/Engineer Hematology/Oncology 05/22/22 Excel Developer Relationship Specialty Start Date End Date Sylvia Lizama MD [address] [place] [address] PCP - General Family Medicine 12/02/18 Rene Do, [address] [address] Referring Physical Medicine and Rehab 06/15/21 Melba Escudero MD [address] [place] [address] Hematology/Oncology 05/03/22 Chinyere Shea RN [address] [place] [address] Specialty Conductor/Engineer Hematology/Oncology 05/22/22 Excel Developer Relationship Specialty Start Date End Date Sylvia Lizama MD [address] [place] [address] PCP - General Family Medicine 12/02/18 [place] [id number] [place] [address] Referring Physical Medicine and Rehab 06/15/21 Melba Escudero MD [address] [address] Hematology/Oncology 05/03/22 Chinyere Shea, FRANCESCO [address] [address] Specialty Conductor/Engineer Hematology/Oncology 05/22/22 Enid Rod LISW [address] [place] [address] Interlocking Tower Operator Hematology/Oncology 07/15/22 Excel Developer Relationship Specialty Start Date End Date Sylvia Lizama MD [address] [place] [address] PCP - General Family Medicine 12/02/18 [place] [id number] [place] [address] Referring Physical Medicine and Rehab 06/15/21 Melba Escudero MD [address] [address] Hematology/Oncology 05/03/22 Chinyere Shea, FRANCESCO [address] [place] [address] Specialty Conductor/Engineer Hematology/Oncology 05/22/22 Enid Rod LISW [address] [place] [address] Interlocking Tower Operator Hematology/Oncology 07/15/22 Excel Developer Relationship Specialty Start Date End Date Sylvia Lizama MD [address] [place] [address] PCP - General Family Medicine 12/02/18 [place] [address] [place] [address] Referring Physical Medicine and Rehab 06/15/21 Melba Escudero MD [address] [place] [address] Hematology/Oncology 05/03/22 Chinyere Shea RN [address] [place] [address] Specialty Conductor/Engineer Hematology/Oncology 05/22/22 Enid Rod LISW [address] [place] [address] Interlocking Tower Operator Hematology/Oncology 07/15/22 Excel Developer Relationship Specialty Start Date End Date Sylvia Lizama MD [address] [place] [address] PCP - General Family Medicine 12/02/18 [place] [address] [place] [address] Referring Physical Medicine and Rehab 06/15/21 Melba Escudero MD [address] [place] [address] Hematology/Oncology 05/03/22 Chinyere Shea RN [address] [place] [address] Specialty Conductor/Engineer Hematology/Oncology 05/22/22 Enid Rod LISW [address] [place] [address] Interlocking Tower Operator Hematology/Oncology 07/15/22 Excel Developer Relationship Specialty Start Date End Date Sylvia Lizama MD [address] [place] [address] PCP - General Family Medicine 12/02/18 [place] [id number] [place] [address] Referring Physical Medicine and Rehab 06/15/21 Melba Escudero MD [address] [place] [address] Hematology/Oncology 05/03/22 Chinyere Shea RN [address] [place] [address] Specialty Conductor/Engineer Hematology/Oncology 05/22/22 Enid Rod LISW [address] [place] [address] Interlocking Tower Operator Hematology/Oncology 07/15/22 Excel Developer Relationship Specialty Start Date End Date Sylvia Lizama MD [address] [place] [address] PCP - General Family Medicine 12/02/18 Rene Do, [address] [place] [address] Referring Physical Medicine and Rehab 06/15/21 Melba Escudero MD [address] [place] [address] Hematology/Oncology 05/03/22 Chinyere Shea RN [address] [place] [address] Specialty Conductor/Engineer Hematology/Oncology 05/22/22 Enid Rod LISW [address] [place] [address] Interlocking Tower Operator Hematology/Oncology 07/15/22 Excel Developer Relationship Specialty Start Date End Date Sylvia Lizama MD [address] [place] [address] PCP - General Family Medicine 12/02/18 Rene Do DO [address] [place] [address] Referring Physical Medicine and Rehab 06/15/21 Melba Escudero MD [address] [place] [address] Hematology/Oncology 05/03/22 Chinyere Shea RN [address] [address] Specialty Conductor/Engineer Hematology/Oncology 05/22/22 Enid Rod LISW [address] [place] [address] Interlocking Tower Operator Hematology/Oncology 07/15/22 Excel Developer Relationship Specialty Start Date End Date Sylvia Lizama MD [address] [place] [address] PCP - General Family Medicine 12/02/18 Rene Do DO [address] [place] [address] Referring Physical Medicine and Rehab 06/15/21 Melba Escudero MD [address] [place] [address] Hematology/Oncology 05/03/22 Chinyere Shea RN [address] [address] Specialty Conductor/Engineer Hematology/Oncology 05/22/22 Enid Rod LISW [address] [place] [address] Interlocking Tower Operator Hematology/Oncology 07/15/22 Excel Developer Relationship Specialty Start Date End Date Sylvia Lizama MD [address] [place] [address] PCP - General Family Medicine 12/02/18 Rene Do DO [address] [place] [address] Referring Physical Medicine and Rehab 06/15/21 Melba Escudero MD [address] [place] [address] Hematology/Oncology 05/03/22 Chinyere Shea RN [address] [address] Specialty Conductor/Engineer Hematology/Oncology 05/22/22 Enid Rod LISW [address] [place] [address] Interlocking Tower Operator Hematology/Oncology 07/15/22 Excel Developer Relationship Specialty Start Date End Date Sylvia Lizama MD [address] [place] [address] PCP - General Family Medicine 12/02/18 Rene Do DO [address] [place] [address] Referring Physical Medicine and Rehab 06/15/21 Melba Escudero MD [address] [place] [address] Hematology/Oncology 05/03/22 Chinyere Shea RN [address] [place] [address] Specialty Conductor/Engineer Hematology/Oncology 05/22/22 Enid Rod LISW [address] [place] [address] Interlocking Tower Operator Hematology/Oncology 07/15/22 Excel Developer Relationship Specialty Start Date End Date Sylvia Lizama MD [address] [place] [address] PCP - General Family Medicine 12/02/18 Rene Do DO [address] [place] [address] Referring Physical Medicine and Rehab 06/15/21 Melba Escudero MD [address] [place] [address] Hematology/Oncology 05/03/22 Chinyere Shea, FRANCESCO [address] [place] [address] Specialty Conductor/Engineer Hematology/Oncology 05/22/22 Enid Rod LISW [address] [place] [address] Interlocking Tower Operator Hematology/Oncology 07/15/22 Excel Developer Relationship Specialty Start Date End Date Sylvia Lizama MD [address] [place] [address] PCP - General Family Medicine 12/02/18 Rene Do, [address] [address] Referring Physical Medicine and Rehab 06/15/21 Melba Escudero MD [address] [place] [address] Hematology/Oncology 05/03/22 Chinyere Shea RN [address] [place] [address] Specialty Conductor/Engineer Hematology/Oncology 05/22/22 Enid Rod LISW [address] [place] [address] Interlocking Tower Operator Hematology/Oncology 07/15/22 Excel Developer Relationship Specialty Start Date End Date Sylvia Lizama MD [address] [place] [address] PCP - General Family Medicine 12/02/18 Rene Do, [id number] [place] [address] Referring Physical Medicine and Rehab 06/15/21 Melba Escudero MD [address] [place] [address] Hematology/Oncology 05/03/22 Chinyere Shea RN [address] [address] Specialty Conductor/Engineer Hematology/Oncology 05/22/22 Enid Rod LISW [address] [place] [address] Interlocking Tower Operator Hematology/Oncology 07/15/22 Excel Developer Relationship Specialty Start Date End Date Sylvia Lizama MD [address] [place] [address] PCP - General Family Medicine 12/02/18 Rene Do [address] [address] Referring Physical Medicine and Rehab 06/15/21 Melba Escudero MD [address] [address] Hematology/Oncology 05/03/22 Chinyere Shea RN [address] [place] [address] Specialty Conductor/Engineer Hematology/Oncology 05/22/22 Enid Rod LISW [address] [place] [address] Interlocking Tower Operator Hematology/Oncology 07/15/22 Excel Developer Relationship Specialty Start Date End Date Sylvia Lizama MD [address] [place] [address] PCP - General Family Medicine 12/02/18 Reen Do, [address] [address] Referring Physical Medicine and Rehab 06/15/21 Melba Escudero MD [address] [place] [address] Hematology/Oncology 05/03/22 Chinyere Shea RN [address] [place] [address] Specialty Conductor/Engineer Hematology/Oncology 05/22/22 Enid Rod LISW [address] [place] [address] Interlocking Tower Operator Hematology/Oncology 07/15/22 Excel Developer Relationship Specialty Start Date End Date Sylvia Lizama MD [address] [place] [address] PCP - General Family Medicine 12/02/18 Rene Do DO [address] [place] [address] Referring Physical Medicine and Rehab 06/15/21 Melba Escudero MD [address] [facility] [address] Hematology/Oncology 05/03/22 Chinyere Shea RN [address] [place] [address] Specialty Conductor/Engineer Hematology/Oncology 05/22/22 Enid Rod LISW [address] [place] [address] Interlocking Tower Operator Hematology/Oncology 07/15/22 Excel Developer Relationship Specialty Start Date End Date Sylvia Lizama MD [address] [place] [address] PCP - General Family Medicine 12/02/18 Rene Do DO [address] [place] [address] Referring Physical Medicine and Rehab 06/15/21 Melba Escudero MD [address] [place] [address] Hematology/Oncology 05/03/22 Chinyere Shea, FRANCESCO [address] [place] [address] Specialty Conductor/Engineer Hematology/Oncology 05/22/22 Enid Rod LISW [address] [place] [address] Interlocking Tower Operator Hematology/Oncology 07/15/22 Excel Developer Relationship Specialty Start Date End Date Sylvia Lizama MD [address] [place] [address] PCP - General Family Medicine 12/02/18 Rene Do, [address] [place] [address] Referring Physical Medicine and Rehab 06/15/21 Melba Escudero MD [address] [place] [address] Hematology/Oncology 05/03/22 Chinyere hSea RN [address] [place] [address] Specialty Conductor/Engineer Hematology/Oncology 05/22/22 Enid Rod LISW [address] [place] [address] Interlocking Tower Operator Hematology/Oncology 07/15/22 Excel Developer Relationship Specialty Start Date End Date Sylvia Lizama MD [address] [place] [address] PCP - General Family Medicine 12/02/18 R[place] Do [place] [id number] [place] [address] Referring Physical Medicine and Rehab 06/15/21 Melba Escudero MD [address] [place] [address] Hematology/Oncology 05/03/22 Chinyere Shea RN [address] [place] [address] Specialty Conductor/Engineer Hematology/Oncology 05/22/22 Enid Rod LISW [address] [place] [address] Interlocking Tower Operator Hematology/Oncology 07/15/22 Excel Developer Relationship Specialty Start Date End Date Sylvia Lizama MD [address] [place] [address] PCP - General Family Medicine 12/02/18 Rene Do, DO [address] [place] [address] Referring Physical Medicine and Rehab 06/15/21 Melba Escudero MD [address] [address] Hematology/Oncology 05/03/22 Chinyere Shea RN [address] [place] [address] Specialty Conductor/Engineer Hematology/Oncology 05/22/22 Enid Rod LISW [address] [place] [address] Interlocking Tower Operator Hematology/Oncology 07/15/22 Excel Developer Relationship Specialty Start Date End Date Sylvia Lizama MD [address] [place] [address] PCP - General Family Medicine 12/02/18 Rene Do, DO [address] [place] [address] Referring Physical Medicine and Rehab 06/15/21 Melba Escudero MD [address] [place] [address] Hematology/Oncology 05/03/22 Chinyere Shea RN [address] [place] [address] Specialty Conductor/Engineer Hematology/Oncology 05/22/22 Enid Rod LISW [address] [place] [address] Interlocking Tower Operator Hematology/Oncology 07/15/22 Anca Almonte MD [address] [place] [address] Oncology 12/19/22 Excel Developer Relationship Specialty Start Date End Date Sylvia Lizama MD [address] [place] [address] PCP - General Family Medicine 12/02/[address] [address] Referring Physical Medicine and Rehab 06/15/21 Melba Escudero MD [address] [place] [address] Hematology/Oncology 05/03/22 Chinyere Shea, FRANCESCO [address] [place] [address] Specialty Conductor/Engineer Hematology/Oncology 05/22/22 Enid Rod LISW [address] [place] [address] Interlocking Tower Operator Hematology/Oncology 07/15/22 Anca Almonte MD [address] [place] [address] Oncology 12/19/22 Excel Developer Relationship Specialty Start Date End Date Sylvia Lizama MD [address] [place] [address] PCP - General Family Medicine 12/02/18 Rene Do [address] [address] Referring Physical Medicine and Rehab 06/15/21 Melba Escudero MD [address] [place] [address] Hematology/Oncology 05/03/22 Chinyere Shea, FRANCESCO [address] [place] [address] Specialty Conductor/Engineer Hematology/Oncology 05/22/22 Enid Rod LISW [address] [place] [address] Interlocking Tower Operator Hematology/Oncology 07/15/22 Anca Almonte MD [address] [place] [address] Oncology 12/19/22 Excel Developer Relationship Specialty Start Date End Date Sylvia Lizama MD [address] [place] [address] PCP - General Family Medicine 12/02/18 Rene Do DO [address] [place] [address] Referring Physical Medicine and Rehab 06/15/21 Melba Escudero MD [address] [place] [address] Hematology/Oncology 05/03/22 Chinyere Shea, FRANCESCO [address] [place] [address] Specialty Conductor/Engineer Hematology/Oncology 05/22/22 Enid Rod LISW [address] [place] [address] Interlocking Tower Operator Hematology/Oncology 07/15/22 Anca Almonte MD [address] [place] [address] Oncology 12/19/22 Excel Developer Relationship Specialty Start Date End Date Sylvia Lizama MD [address] [place] [address] PCP - General Family Medicine 12/02/18 Rene Do DO [address] [place] [address] Referring Physical Medicine and Rehab 06/15/21 Melba Escudero MD [address] [place] [address] Hematology/Oncology 05/03/22 Chinyere Shea RN [address] [place] [address] Specialty Conductor/Engineer Hematology/Oncology 05/22/22 Enid Rod LISW [address] [place] [address] Interlocking Tower Operator Hematology/Oncology 07/15/22 Anca Almonte MD [address] [place] [place] [address] Oncology 12/19/22 Excel Developer Relationship Specialty Start Date End Date Sylvia Lizama MD [address] [place] [address] PCP - General Family Medicine 12/02/18 Rene Do DO [address] [place] [address] Referring Physical Medicine and Rehab 06/15/21 Melba Escudero MD [address] [place] [address] Hematology/Oncology 05/03/22 Chinyere Shea, FRANCESCO [address] [place] [address] Specialty Conductor/Engineer Hematology/Oncology 05/22/22 Enid Rod LISW [address] [place] [address] Interlocking Tower Operator Hematology/Oncology 07/15/22 Anca Almonte MD [address] [place] [address] Oncology 12/19/22 Excel Developer Relationship Specialty Start Date End Date Sylvia Lizama MD [address] [place] [address] PCP - General Family Medicine 12/02/18 Rene Do, [address] [place] [address] Referring Physical Medicine and Rehab 06/15/21 Melba Escudero MD [address] [place] [address] Hematology/Oncology 05/03/22 Chinyere Shea RN [address] [place] [address] Specialty Conductor/Engineer Hematology/Oncology 05/22/22 Enid Rod LISW [address] [place] [address] Interlocking Tower Operator Hematology/Oncology 07/15/22 Anca Almonte MD [address] [place] [address] Oncology 12/19/22 Excel Developer Relationship Specialty Start Date End Date Sylvia Lizama MD [address] [place] [address] PCP - General Family Medicine 12/02/18 Rene Do, DO [address] [place] [address]24 Referring Physical Medicine and Rehab 06/15/21 Melba Escudero MD [address] [place] [address] Hematology/Oncology 05/03/22 Chinyere Shea RN [address] [place] [address] Specialty Conductor/Engineer Hematology/Oncology 05/22/22 Enid Rod LISW [address] [place] [address] Interlocking Tower Operator Hematology/Oncology 07/15/22 Anca Almonte MD [address] [place] [address] Oncology 12/19/22 Excel Developer Relationship Specialty Start Date End Date Sylvia Lizama MD [address] [place] [address] PCP - General Family Medicine 12/02/18 Rene Do DO [address] [place] [address]178 Referring Physical Medicine and Rehab 06/15/21 Melba Escudero MD [address] [place] [address] Hematology/Oncology 05/03/22 Chinyere Shea RN [address] [place] [address] Specialty Conductor/Engineer Hematology/Oncology 05/22/22 Enid Rod LISW [address] [place] [address] Interlocking Tower Operator Hematology/Oncology 07/15/22 Anca Almonte MD [address] [place] [address] Oncology 12/19/22 Excel Developer Relationship Specialty Start Date End Date Sylvia Lizama MD [address] [place] [address] PCP - General Family Medicine 12/02/18 Rene Do DO [address] [place] [address]011 Referring Physical Medicine and Rehab 06/15/21 Melba Escudero MD [address] [place] [address]252 Hematology/Oncology 05/03/22 Chinyere Shea RN [address] [place] [address] Specialty Conductor/Engineer Hematology/Oncology 05/22/22 Enid Rod LISW [address] [place] [address] Interlocking Tower Operator Hematology/Oncology 07/15/22 Anca Almonte MD [address] [place] [place] [address] Oncology 12/19/22 Excel Developer Relationship Specialty Start Date End Date Sylvia Lizama MD [address] [place] [address] [place] [address] PCP - General Family Medicine 12/02/18 Rene Do DO [address] [place] [address]19 Referring Physical Medicine and Rehab 06/15/21 Melba Escudero MD [address] [place] [address] Hematology/Oncology 05/03/22 Chinyere Shea RN [address] [place] [address] Specialty Conductor/Engineer Hematology/Oncology 05/22/22 Enid Rod LISW [address] [place] [address] Interlocking Tower Operator Hematology/Oncology 07/15/22 Anca Almonte MD [address] [place] [address] Oncology 12/19/22 Excel Developer Relationship Specialty Start Date End Date Sylvia Lizama MD [address] [address] PCP - General Family Medicine 12/02/18 Rene Do DO [address] [place] [address] 7[address] Referring Physical Medicine and Rehab 06/15/21 Melba Escudero MD [address] [place] [address] Hematology/Oncology 05/03/22 Chinyere Shea, FRANCESCO [address] [place] [address] Specialty Conductor/Engineer Hematology/Oncology 05/22/22 Enid Rod LISW [address] [place] [address] Interlocking Tower Operator Hematology/Oncology 07/15/22 Anca Almonte MD [address] [place] [address] Oncology 12/19/22 Excel Developer Relationship Specialty Start Date End Date Sylvia Lizama MD [address] [place], [place] [address]391 PCP - General Family Medicine 12/02/18 Rene Do DO [address] [place] [address] 29056 Referring Physical Medicine and Rehab 06/15/21 [place] [address] [place] [address] Hematology/Oncology 05/03/22 Chinyere Shea RN [address] [place] [address] Specialty Conductor/Engineer Hematology/Oncology 05/22/22 Enid Rod LISW [address] [place] [address] Interlocking Tower Operator Hematology/Oncology 07/15/22 Anca Almonte MD [address] [place] [address] Oncology 12/19/22 Excel Developer Relationship Specialty Start Date End Date Sylvia Lizama MD [facility] [place] [address] PCP - General Family Medicine 12/02/18 Rene Do DO [address] [place] [address] 19639 Referring Physical Medicine and Rehab 06/15/21 Melba [place]udero MD [address] [place] [address] Hematology/Oncology 05/03/22 Chinyere Shea RN [address] [place] [address] Specialty Conductor/Engineer Hematology/Oncology 05/22/22 Enid Rod LISW [address] [place] [address] Interlocking Tower Operator Hematology/Oncology 07/15/22 Anca Almonte MD [address] [place] [address] Oncology 12/19/22 Excel Developer Relationship Specialty Start Date End Date Sylvia Lizama MD [address] [place], [place] [address]2231 PCP - General Family Medicine 12/02/18 [place] [id number] [place] [address] Referring Physical Medicine and Rehab 06/15/21 Melba Escudero MD [id number] [place] [address]353 Hematology/Oncology 05/03/22 Chinyere Shea, FRANCESCO [address] [place] [address] Specialty Conductor/Engineer Hematology/Oncology 05/22/22 Enid Rod LISW [address] [place] [address] Interlocking Tower Operator Hematology/Oncology 07/15/22 Anca Almonte MD [address] [place] [address] Oncology 12/19/22 Excel Developer Relationship Specialty Start Date End Date Sylvia Lizama MD [address] [place] [address] PCP - General Family Medicine 12/02/18 [place] [address] [place] [address]20 Referring Physical Medicine and Rehab 06/15/21 Melba Escudero MD [address] [place] [address]82 Hematology/Oncology 05/03/22 Chinyere Shea RN [address] [place] [address] Specialty Conductor/Engineer Hematology/Oncology 05/22/22 Enid Rod LISW [address] [place] [address] Interlocking Tower Operator Hematology/Oncology 07/15/22 Anca Almonte MD [address] [place] [address] Oncology 12/19/22 Excel Developer Relationship Specialty Start Date End Date Sylvia Lizama MD [address] [place] [address] PCP - General Family Medicine 12/02/18 Rene Do DO [address] [place] [address] Referring Physical Medicine and Rehab 06/15/21 Melba Escudero MD [address] [place] [address] Hematology/Oncology 05/03/22 Chinyere Shea RN [address] [place] [address] Specialty Conductor/Engineer Hematology/Oncology 05/22/22 Enid Rod LISW [address] [place] [address] Interlocking Tower Operator Hematology/Oncology 07/15/22 Anca Almonte MD [address] [place] [address] Oncology 12/19/22 Excel Developer Relationship Specialty Start Date End Date Sylvia Lizama MD [address] [place] [address] PCP - General Family Medicine 12/02/18 Rene Do DO [address] [place] [address] 58742 Referring Physical Medicine and Rehab 06/15/21 Melba Escudero MD [address] [place] [address] 56209 Hematology/Oncology 05/03/22 Chinyere Shea RN [address] [place] [place] [address] Specialty Conductor/Engineer Hematology/Oncology 05/22/22 Enid Rod LISW [address] [place] [address] Interlocking Tower Operator Hematology/Oncology 07/15/22 Anca Almonte MD [address] [place] [address] Oncology 12/19/22 Excel Developer Relationship Specialty Start Date End Date Sylvia Lizama MD [address] [place] [address] PCP - General Family Medicine 12/02/18 Rene Do DO [address] [place] [address] 79054 Referring Physical Medicine and Rehab 06/15/21 Melba Escudero MD [address] [place] [address] 60296 Hematology/Oncology 05/03/22 Chinyere Shea RN [address] [place] [address] Specialty Conductor/Engineer Hematology/Oncology 05/22/22 Enid Rod LISW [address] [place] [address] Interlocking Tower Operator Hematology/Oncology 07/15/22 Anca Almonte MD [address] [place] [address] Oncology 12/19/22 Excel Developer Relationship Specialty Start Date End Date Sylvia Lizama MD [address] [place] [address] PCP - General Family Medicine 12/02/18 Rene Do DO [address] [place] [address] 51628 Referring Physical Medicine and Rehab 06/15/21 Melba Escudero MD [address] [place] [address] 65724 Hematology/Oncology 05/03/22 Chinyere Shea, FRANCESCO [address] [place] [address] Specialty Conductor/Engineer Hematology/Oncology 05/22/22 Enid Rod LISW [address] [place] [address] Interlocking Tower Operator Hematology/Oncology 07/15/22 Anca Almonte MD [address] [place] [address] Oncology 12/19/22 Excel Developer Relationship Specialty Start Date End Date Sylvia Lizama MD [address] [place] [address] PCP - General Family Medicine 12/02/[place] [address] [place] [address] Referring Physical Medicine and Rehab 06/15/21 [place] [address] [place] [address] Hematology/Oncology 05/03/22 Chinyere Shea RN [address] [place] [address] Specialty Conductor/Engineer Hematology/Oncology 05/22/22 Enid Rod LISW [address] [place] [address] Interlocking Tower Operator Hematology/Oncology 07/15/22 Anca Almonte MD [address] [place] [address] Oncology 12/19/22 Excel Developer Relationship Specialty Start Date End Date Sylvia Lizama MD [address] [place] [address] PCP - General Family Medicine 12/02/[place] [address] [place] [address] Referring Physical Medicine and Rehab 06/15/21 Chinyere Shea RN [address] [place] [address] Specialty Conductor/Engineer Hematology/Oncology 05/22/22 Enid Rod LISW [address] [place] [address] Interlocking Tower Operator Hematology/Oncology 07/15/22 Prince Fang MD [address] [place] [address] Hematology/Oncology 06/18/23 Excel Developer Relationship Specialty Start Date End Date Sylvia Lizama MD [address] [place] [address] PCP - General Family Medicine 12/02/[place] [address] [place] [address] Referring Physical Medicine and Rehab 06/15/21 Chinyere Shea RN [address] [place] [address] Specialty Conductor/Engineer Hematology/Oncology 05/22/22 Enid Rod LISW [address] [place] [address] Interlocking Tower Operator Hematology/Oncology 07/15/22 Prince Fang MD [address] [place] [address] Hematology/Oncology 06/18/23 Excel Developer Relationship Specialty Start Date End Date Sylvia Lizama MD [address] [place] [address] PCP - General Family Medicine 12/02/[place] [address] [place] [address] Referring Physical Medicine and Rehab 06/15/21 Chinyere Shea RN [address] [place] [address] Specialty Conductor/Engineer Hematology/Oncology 05/22/22 Enid Rod LISW [address] [place] [address] Interlocking Tower Operator Hematology/Oncology 07/15/22 Prince Fang MD [address] [place] [address] Hematology/Oncology 06/18/23 Excel Developer Relationship Specialty Start Date End Date Sylvia Lizama MD [address] [facility] [address] PCP - General Family Medicine 12/02/18 [place] [id number] [place] [address]19 Referring Physical Medicine and Rehab 06/15/21 Chinyere Shea, FRANCESCO [address] [address] Specialty Conductor/Engineer Hematology/Oncology 05/22/22 Enid Rod LISW [address] [place] [address] Interlocking Tower Operator Hematology/Oncology 07/15/22 Prince Fang MD [address] [place] [address] Hematology/Oncology 06/18/23 Excel Developer Relationship Specialty Start Date End Date Sylvia Lizama MD [address] [place] [address] PCP - General Family Medicine 12/02/18 [place] [id number] [place] [address] 68553 Referring Physical Medicine and Rehab 06/15/21 Melba Escudero MD [address] [place] [address]171 Hematology/Oncology 05/03/22 06/17/23 Chinyere Shea RN [address] [place] [address] Specialty Conductor/Engineer Hematology/Oncology 05/22/22 Enid Rod LISW [address] [place] [address] Interlocking Tower Operator Hematology/Oncology 07/15/22 Excel Developer Relationship Specialty Start Date End Date Sylvia Lizama MD [address] [place] [address] PCP - General Family Medicine 12/02/18 Rene Do DO [address] [place] [address] 03332 Referring Physical Medicine and Rehab 06/15/21 Melba Escudero MD [address] [place] [address] 70106 Hematology/Oncology 05/03/22 06/17/23 Chinyere Shea RN [address] [place] [address] Specialty Conductor/Engineer Hematology/Oncology 05/22/22 Enid Rod LISW [address] [place] [address] Interlocking Tower Operator Hematology/Oncology 07/15/22 Anca Almonte MD [address] [place] [place] [address] Oncology 12/19/22 06/17/23 Excel Developer Relationship Specialty Start Date End Date Sylvia Lizama MD [address] [place] [address] PCP - General Family Medicine 12/02/[place] [address] [place] [address] Referring Physical Medicine and Rehab 06/15/21 [place] [address] [place] [address] Hematology/Oncology 05/03/22 06/17/23 Chinyere Shea RN [address] [place] [address] Specialty Conductor/Engineer Hematology/Oncology 05/22/22 Enid Rod LISW [address] [place] [address] Interlocking Tower Operator Hematology/Oncology 07/15/22 Excel Developer Relationship Specialty Start Date End Date Sylvia Lizama MD [address] [place] [address] PCP - General Family Medicine 12/02/18 [place] [address] [place] [address] Referring Physical Medicine and Rehab 06/15/21 [place] [address] [place] [address] Hematology/Oncology 05/03/22 06/17/23 Chinyere Shea RN [address] [place] [address] Specialty Conductor/Engineer Hematology/Oncology 05/22/22 Enid Rod LISW [address] [place] [address] Interlocking Tower Operator Hematology/Oncology 07/15/22 Excel Developer Relationship Specialty Start Date End Date Sylvia Lizama MD [address] [place] [address] PCP - General Family Medicine 12/02/18 [place] [address] [place] [address] Referring Physical Medicine and Rehab 06/15/21 Melba [place] [address] [place] [address] 84971 Hematology/Oncology 05/03/22 06/17/23 Chinyere Shea RN [address] [place] [address] Specialty Conductor/Engineer Hematology/Oncology 05/22/22 Enid Rod LISW [address] [place] [address] Interlocking Tower Operator Hematology/Oncology 07/15/22 Anca Almonte MD [address] [place] [address] Oncology 12/19/22 06/17/23 Excel Developer Relationship Specialty Start Date End Date Sylvia Lizama MD [address] [place] [address] PCP - General Family Medicine 12/02/18 [place] [address] [place] [address] Referring Physical Medicine and Rehab 06/15/21 Chinyere Shea RN [address] [place] [address] Specialty Conductor/Engineer Hematology/Oncology 05/22/22 Enid Rod LISW [address] [place] [address] Interlocking Tower Operator Hematology/Oncology 07/15/22 Prince Fang MD [address] [place] [address] Hematology/Oncology 06/18/23 Kirsten Monroy [address] [place] [address] Optometry 08/25/23 Excel Developer Relationship Specialty Start Date End Date Sylvia Lizama MD [address] [place] [address] PCP - General Family Medicine 12/02/18 [place] [address] [place] [address] Referring Physical Medicine and Rehab 06/15/21 Chinyere Shea, FRANCESCO [address] [place] [address] Specialty Conductor/Engineer Hematology/Oncology 05/22/22 Enid Rod LISW [address] [place] [address] Interlocking Tower Operator Hematology/Oncology 07/15/22 Prince Fang MD [address] [place] [address] Hematology/Oncology 06/18/23 [facility] [address] [place] [address] Optometry 08/25/23 Excel Developer Relationship Specialty Start Date End Date Sylvia Lizama MD [address] [place] [address] PCP - General Family Medicine 12/02/18 [place] [address] [place] [address] Referring Physical Medicine and Rehab 06/15/21 Chinyere Shea RN [address] [place] [address] Specialty Conductor/Engineer Hematology/Oncology 05/22/22 Enid Rod LISW [address] [place] [address] Interlocking Tower Operator Hematology/Oncology 07/15/22 Prince Fang MD [address] [place] [address] Hematology/Oncology 06/18/23 Ctr, [facility] [address] [place] [address] Optometry 08/25/23 Excel Developer Relationship Specialty Start Date End Date Sylvia Lizama MD [address] [place] [address] PCP - General Family Medicine 12/02/18 [place] [address] [place] [address] Referring Physical Medicine and Rehab 06/15/21 Chinyere Shea RN [address] [place] [address] Specialty Conductor/Engineer Hematology/Oncology 05/22/22 Enid Rod LISW [address] [place] [address] Interlocking Tower Operator Hematology/Oncology 07/15/22 Prince Fang MD [address] [place] [address] Hematology/Oncology 06/18/23 Ctr, [facility] [address] [place] [address] Optometry 08/25/23 Excel Developer Relationship Specialty Start Date End Date Sylvia Lizama MD [address] [place] [address] PCP - General Family Medicine 12/02/18 [place] [address] [place] [address] Referring Physical Medicine and Rehab 06/15/21 Chinyere Shea RN [address] [place] [address] Specialty Conductor/Engineer Hematology/Oncology 05/22/22 Enid Rod LISW [address] [place] [address] Interlocking Tower Operator Hematology/Oncology 07/15/22 Prince Fnag MD [address] [place] [address] Hematology/Oncology 06/18/23 Eliana, [facility] [address] [place] [address] Optometry 08/25/23 Excel Developer Relationship Specialty Start Date End Date Sylvia Lizama MD [address] [place] [address] PCP - General Family Medicine 12/02/18 [place] [address] [place] [address] Referring Physical Medicine and Rehab 06/15/21 Chinyere Shea RN [address] [place] [address] Specialty Conductor/Engineer Hematology/Oncology 05/22/22 Enid Rod LISW [address] [place] [address] Interlocking Tower Operator Hematology/Oncology 07/15/22 Prince Fang MD [address] [place] [address] Hematology/Oncology 06/18/23 Ctr, [facility] [address] [place] [address] Optometry 08/25/23 Excel Developer Relationship Specialty Start Date End Date Sylvia Lizama MD [address] [place] [address] PCP - General Family Medicine 12/02/18 [place] [id number] [place] [address] Referring Physical Medicine and Rehab 06/15/21 Chinyere Shea RN [address] [place] [address] Specialty Conductor/Engineer Hematology/Oncology 05/22/22 Enid Rod LISW [address] [place] [address] Interlocking Tower Operator Hematology/Oncology 07/15/22 Prince Fang MD [address] [place] [address] Hematology/Oncology 06/18/23 Ctr, [facility] [address] [place] [address] Optometry 08/25/23 Excel Developer Relationship Specialty Start Date End Date Sylvia Lizama MD [address] [place] [address] PCP - General Family Medicine 12/02/18 [place] [address] [place] [address] Referring Physical Medicine and Rehab 06/15/21 Chinyere Shea RN [address] [place] [address] Specialty Conductor/Engineer Hematology/Oncology 05/22/22 Enid Rod LISW [address] [place] [address] Interlocking Tower Operator Hematology/Oncology 07/15/22 Prince Fang MD [address] [place] [address] Hematology/Oncology 06/18/23 Ctr, [facility] [address] [place] [address] Optometry 08/25/23 Excel Developer Relationship Specialty Start Date End Date Sylvia Lizama MD [address] [place] [address] PCP - General Family Medicine 12/02/18 Rene Do DO [address] [place] [address] Referring Physical Medicine and Rehab 06/15/21 Chinyere Shea, RN [address] [place] [address] Specialty Conductor/Engineer Hematology/Oncology 05/22/22 Enid Rod LISW [address] [place] [address] Interlocking Tower Operator Hematology/Oncology 07/15/22 Prince Fang MD [address] [place] [address] Hematology/Oncology 06/18/23 Ctr, [facility] [address] [place] [address] Optometry 08/25/23 Excel Developer Relationship Specialty Start Date End Date Sylvia Lizama MD [address] [place] [address] PCP - General Family Medicine 12/02/18 [place] [address] [place] [address] Referring Physical Medicine and Rehab 06/15/21 Chinyere Shea RN [address] [place] [address] Specialty Conductor/Engineer Hematology/Oncology 05/22/22 Enid Rod LISW [address] [place] [address] Interlocking Tower Operator Hematology/Oncology 07/15/22 Prince Fang MD [address] [place] [address] Hematology/Oncology 06/18/23 Ctr, [facility] [address] [place] [address] Optometry 08/25/23 Excel Developer Relationship Specialty Start Date End Date Sylvia Lizama MD [address] [place] [address] PCP - General Family Medicine 12/02/18 [place] [address] [place] [address] Referring Physical Medicine and Rehab 06/15/21 Chinyere Shea RN [address] [place] [address] Specialty Conductor/Engineer Hematology/Oncology 05/22/22 Enid Rod LISW [address] [place] [address] Interlocking Tower Operator Hematology/Oncology 07/15/22 Prince Fang MD [address] [place] [address] Hematology/Oncology 06/18/23 Ctr, [facility] [address] [place] [address] Optometry 08/25/23 Excel Developer Relationship Specialty Start Date End Date Sylvia Lizama MD [address] [place] [address] PCP - General Family Medicine 12/02/18 [place] [address] [place] [address] Referring Physical Medicine and Rehab 06/15/21 Chinyere Shea RN [address] [address] Specialty Conductor/Engineer Hematology/Oncology 05/22/22 Enid Rod LISW [address] [place] [address] Interlocking Tower Operator Hematology/Oncology 07/15/22 Prince Fang MD [address] [facility] [place] [address] Hematology/Oncology 06/18/23 Ctr, [facility] [address] [place] [address] Optometry 08/25/23 Excel Developer Relationship Specialty Start Date End Date Sylvia Lizama MD [address] [place] [address] PCP - General Family Medicine 12/02/18 [place] [address] [place] [address] Referring Physical Medicine and Rehab 06/15/21 Chinyere Shea RN [address] [place] [address] Specialty Conductor/Engineer Hematology/Oncology 05/22/22 Enid Rod LISW [address] [place] [address] Interlocking Tower Operator Hematology/Oncology 07/15/22 Prince Fang MD [address] [place] [address] Hematology/Oncology 06/18/23 [facility]tr[facility] [address] [place] [address] Optometry 08/25/23 Excel Developer Relationship Specialty Start Date End Date Sylvia Lizama MD [address] [place] [address] PCP - General Family Medicine 12/02/18 [place] [id number] [place] [address] [id number] Referring Physical Medicine and Rehab 06/15/21 Chinyere Shea, FRANCESCO [address] [place] [address] Specialty Conductor/Engineer Hematology/Oncology 05/22/22 Enid Rod LISW [address] [place] [address] Interlocking Tower Operator Hematology/Oncology 07/15/22 Prince Fang MD [address] [place] [address] Hematology/Oncology 06/18/23 Ctr, [facility] Gonz[facility]les [address] [place] [address] Optometry 08/25/23 Excel Developer Relationship Specialty Start Date End Date Sylvia Lizama MD [address] [place] [address] PCP - General Family Medicine 12/02/18 [place] [address] [place] [address] Referring Physical Medicine and Rehab 06/15/21 Chinyere Shea RN [address] [place] [address] Specialty Conductor/Engineer Hematology/Oncology 05/22/22 Enid Rod LISW [address] [place] [address] Interlocking Tower Operator Hematology/Oncology 07/15/22 Prince Fang MD [address] [place] [address] Hematology/Oncology 06/18/23 Ctr, [facility] [address] [place] [address] Optometry 08/25/23 Excel Developer Relationship Specialty Start Date End Date Sylvia Lizama MD [address] [place] [address] PCP - General Family Medicine 12/02/18 [place] [address] [place] [address] Referring Physical Medicine and Rehab 06/15/21 Chinyere Shea RN [address] [place] [address] Specialty Conductor/Engineer Hematology/Oncology 05/22/22 Enid Rod LISW [address] [place] [address] Interlocking Tower Operator Hematology/Oncology 07/15/22 Prince Fang MD [address] [place] [address] Hematology/Oncology 06/18/23 Ctr, [facility] [address] [place] [address] Optometry 08/25/23 Excel Developer Relationship Specialty Start Date End Date Sylvia Lizama MD [address] [place] [address] PCP - General Family Medicine 12/02/18 [place] [address] [place] [address] Referring Physical Medicine and Rehab 06/15/21 Chinyere Shea RN [address] [place] [address] Specialty Conductor/Engineer Hematology/Oncology 05/22/22 Enid Rod LISW [address] [place] [address] Interlocking Tower Operator Hematology/Oncology 07/15/22 Prince Fang MD [address] [place] [address] Hematology/Oncology 06/18/23 Ctr, [facility] [address] [place] [address] Optometry 08/25/23 Excel Developer Relationship Specialty Start Date End Date Sylvia Lizama MD [address] [place] [address] PCP - General Family Medicine 12/02/18 [place] [address] [place] [address] Referring Physical Medicine and Rehab 06/15/21 Chinyere Shea RN [address] [place] [address] Specialty Conductor/Engineer Hematology/Oncology 05/22/22 Enid Rod LISW [address] [place] [address] Interlocking Tower Operator Hematology/Oncology 07/15/22 Prince Fang MD [address] [place] [address] Hematology/Oncology 06/18/23 Ctr, [facility] [address] [place] [address] Optometry 08/25/23 Excel Developer Relationship Specialty Start Date End Date Sylvia Lizama MD [address] [place] [address] PCP - General Family Medicine 12/02/18 [place] [address] [place] [address] Referring Physical Medicine and Rehab 06/15/21 Chinyere Shea RN [address] [place] [address] Specialty Conductor/Engineer Hematology/Oncology 05/22/22 Enid Rod LISW [address] [place] [address] Interlocking Tower Operator Hematology/Oncology 07/15/22 Prince Fang MD [address] [place] [address] Hematology/Oncology 06/18/23 [facility], [facility] [address] [place] [address] Optometry 08/25/23 Bozena Hirsch RN [address] [place] [address] Primary Care Machine Designer 03/29/24 Excel Developer Relationship Specialty Start Date End Date Sylvia Lizama MD [address] [place] [address] PCP - General Family Medicine 12/02/18 [place] [address] [place] [address] Referring Physical Medicine and Rehab 06/15/21 Chinyere Shea RN [address] [place] [address] Specialty Conductor/Engineer Hematology/Oncology 05/22/22 Enid Rod LISW [address] [place] [address] Interlocking Tower Operator Hematology/Oncology 07/15/22 Prince Fang MD [address] [place] [address] Hematology/Oncology 06/18/23 Ctr, [facility] [address] [place] [address] Optometry 08/25/23 Bozena Hirsch RN [address] [place] [address] Primary Care Machine Designer 03/29/24 Excel Developer Relationship Specialty Start Date End Date Sylvia Lizama MD [address] [place] [address] PCP - General Family Medicine 12/02/18 [place] [address] [place] [address] Referring Physical Medicine and Rehab 06/15/21 Chinyere Shea RN [address] [place] [address] Specialty Conductor/Engineer Hematology/Oncology 05/22/22 Enid Rod LISW [address] [place] [address] Interlocking Tower Operator Hematology/Oncology 07/15/22 Prince Fang MD [address] [place] [address] Hematology/Oncology 06/18/23 Ctr, [facility] [address] [place] [address] Optometry 08/25/23 Bozena Hirsch RN [address] [place] [address] Primary Care Machine Designer 03/29/24 Excel Developer Relationship Specialty Start Date End Date Sylvia Lizama MD [address] [facility], [place] [address]861 PCP - General Family Medicine 12/02/18 Rene Do DO [address] [place] [address] Referring Physical Medicine and Rehab 06/15/21 Chinyere Shea RN [address] [place] [address] Specialty Conductor/Engineer Hematology/Oncology 05/22/22 Enid Rod LISW [address] [place] [address] Interlocking Tower Operator Hematology/Oncology 07/15/22 Prince Fang MD [address] [place] [address] Hematology/Oncology 06/18/23 [facility], Kirsten Gonzáles [address] [place] [address] Optometry 08/25/23 Bozena Hirsch RN [address] [place] [address] Primary Care Machine Designer 03/29/24 Excel Developer Relationship Specialty Start Date End Date Sylvia Lizama MD [address] [place] [address] PCP - General Family Medicine 12/02/18 Rene Do DO [address] [place] [address] Referring Physical Medicine and Rehab 06/15/21 Chinyere Shea RN [address] [place] [address] Specialty Conductor/Engineer Hematology/Oncology 05/22/22 Enid Rod LISW [address] [place] [address] Interlocking Tower Operator Hematology/Oncology 07/15/22 Prince Fang MD [address] [place] [address] Hematology/Oncology 06/18/23 Ctr, [facility] [address] [place] [address] Optometry 08/25/23 Bozena Hirsch RN [address] [place] [id number] Primary Care Machine Designer 03/29/24 Excel Developer Relationship Specialty Start Date End Date Sylvia Lizama MD [address] [place] [address] PCP - General Family Medicine 12/02/18 [place] [address] [place] [address] Referring Physical Medicine and Rehab 06/15/21 Chinyere Shea RN [address] [place] [address] Specialty Conductor/Engineer Hematology/Oncology 05/22/22 Enid Rod LISW [address] [place] [address] Interlocking Tower Operator Hematology/Oncology 07/15/22 Prince Fang MD [address] [place] [address] Hematology/Oncology 06/18/23 Ctr, [facility] [address] [place] [address] Optometry 08/25/23 Bozena Hirsch RN [address] [place] [address] Primary Care Machine Designer 03/29/24 Excel Developer Relationship Specialty Start Date End Date Sylvia Lizama MD [address] [place] [address] PCP - General Family Medicine 12/02/18 Rene Do DO [address] [place] [address] Referring Physical Medicine and Rehab 06/15/21 Chinyere Shea RN [address] [place] [address] Specialty Conductor/Engineer Hematology/Oncology 05/22/22 Enid Rod LISW [address] [place] [address] Interlocking Tower Operator Hematology/Oncology 07/15/22 Prince Fang MD [address] [place] [address] Hematology/Oncology 06/18/23 Ctr, [facility] [address] [place] [address] Optometry 08/25/23 Bozena Hirsch RN [address] [place] [address] Primary Care Machine Designer 03/29/24 Excel Developer Relationship Specialty Start Date End Date Sylvia Lizama MD [address] [facility], [place] 436471 PCP - General Family Medicine 12/02/18 R[place] [id number] [place] [address] Referring Physical Medicine and Rehab 06/15/21 Chinyere Shea RN [address] [place] [address] Specialty Conductor/Engineer Hematology/Oncology 05/22/22 Enid Rod LISW [address] [place] [address] Interlocking Tower Operator Hematology/Oncology 07/15/22 Prince Fang MD [address] [place] [address] Hematology/Oncology 06/18/23 Ctr, [facility] [address] [place] [address] Optometry 08/25/23 Bozena Hirsch RN [address] [place] [phone] Primary Care Machine Designer 03/29/24 Excel Developer Relationship Specialty Start Date End Date Sylvia Lizama MD [address] [place] [address] PCP - General Family Medicine 12/02/18 [place] [address] [place] [address] Referring Physical Medicine and Rehab 06/15/21 Chinyere Shea RN [address] [place] [address] Specialty Conductor/Engineer Hematology/Oncology 05/22/22 Enid Rod LISW [address] [place] [address] Interlocking Tower Operator Hematology/Oncology 07/15/22 Prince Fang MD [address] [place] [address] Hematology/Oncology 06/18/23 Ctr, [facility] [address] [place] [address] Optometry 08/25/23 Bozena Hirsch RN [address] [place] [address] Primary Care Machine Designer 03/29/24 Excel Developer Relationship Specialty Start Date End Date Sylvia Lizama MD [address] [place] [address] PCP - General Family Medicine 12/02/18 R[place] [id number] [place] [address] Referring Physical Medicine and Rehab 06/15/21 Chinyere Shea RN [address] [place] [address] Specialty Conductor/Engineer Hematology/Oncology 05/22/22 Enid Rod LISW [address] [place] [address] Interlocking Tower Operator Hematology/Oncology 07/15/22 Prince Fang MD [address] [place] [place] [address] Hematology/Oncology 06/18/23 [facility], [facility] [address] [place] [address] Optometry 08/25/23 Bozena Hirsch RN [address] [place] [address] Primary Care Machine Designer 03/29/24 Excel Developer Relationship Specialty Start Date End Date Sylvia Lizama MD [address] [place] [address] PCP - General Family Medicine 12/02/18 [place] [address] [place] [address] Referring Physical Medicine and Rehab 06/15/21 Chinyere Shea RN [address] [place] [address] Specialty Conductor/Engineer Hematology/Oncology 05/22/22 Enid Rod LISW [address] [place] [address] Interlocking Tower Operator Hematology/Oncology 07/15/22 Prince Fang MD [address] [place] [address] Hematology/Oncology 06/18/23 Ctr, [facility] [address] [place] [address] Optometry 08/25/23 Bozena Hirsch RN [address] [place] [address] Primary Care Machine Designer 03/29/24 Excel Developer Relationship Specialty Start Date End Date Sylvia Lizama MD [address] [place] [address] PCP - General Family Medicine 12/02/18 [place] [address] [place] [address] Referring Physical Medicine and Rehab 06/15/21 Chinyere Shea, FRANCESCO [address] [place] [address] Specialty Conductor/Engineer Hematology/Oncology 05/22/22 Enid Rod LISW [address] [place] [address] Interlocking Tower Operator Hematology/Oncology 07/15/22 Prince Fang MD [address] [place] [address] Hematology/Oncology 06/18/23 Ctr, [facility] [address] [place] [address] Optometry 08/25/23 Excel Developer Relationship Specialty Start Date End Date Sylvia Lizama MD [address] [place] [address] PCP - General Family Medicine 12/02/18 [place] [address] [place] [address] Referring Physical Medicine and Rehab 06/15/21 Chinyere Shea RN [address] [place] [address] Specialty Conductor/Engineer Hematology/Oncology 05/22/22 Enid Rod LISW [address] [place] [address] Interlocking Tower Operator Hematology/Oncology 07/15/22 rPince Fang MD [address] [place] [address] Hematology/Oncology 06/18/23 Ctr, [facility] [address] [place] [address] Optometry 08/25/23 Excel Developer Relationship Specialty Start Date End Date Sylvia Lizama MD [address] [place] [address] PCP - General Family Medicine 12/02/18 [place] [address] [place] [address] Referring Physical Medicine and Rehab 06/15/21 Chinyere Shea RN [address] [place] [address] Specialty Conductor/Engineer Hematology/Oncology 05/22/22 Enid Rod LISW [address] [place] [address] Interlocking Tower Operator Hematology/Oncology 07/15/22 Prince Fang MD [address] [place] [address] Hematology/Oncology 06/18/23 [facility] [address] [place] [address] Optometry 08/25/23 Excel Developer Relationship Specialty Start Date End Date Sylvia Lizama MD [address] [place] [address] PCP - General Family Medicine 12/02/18 [place] [id number] [place] [address] Referring Physical Medicine and Rehab 06/15/21 Chinyere Shea RN [address] [place] [address] Specialty Conductor/Engineer Hematology/Oncology 05/22/22 Enid Rod LISW [address] [place] [address] Interlocking Tower Operator Hematology/Oncology 07/15/22 Prince Fang MD [address] [place] [address] Hematology/Oncology 06/18/23 Ctr[facility] [address] [place] [address] Optometry 08/25/23 Excel Developer Relationship Specialty Start Date End Date Sylvia Lizama MD [address] [place] [address] PCP - General Family Medicine 12/02/18 [place] [address] [place] [address] Referring Physical Medicine and Rehab 06/15/21 Chinyere Shea RN [address] [place] [address] Specialty Conductor/Engineer Hematology/Oncology 05/22/22 Enid Rod LISW [address] [place] [address] Interlocking Tower Operator Hematology/Oncology 07/15/22 Prince Fang MD [address] [place] [address] Hematology/Oncology 06/18/23 Ctr, [facility] [address] [place] [address] Optometry 08/25/23 Excel Developer Relationship Specialty Start Date End Date Sylvia Lizama MD [address] [place] [address] PCP - General Family Medicine 12/02/18 [place] [address] [place] [address] Referring Physical Medicine and Rehab 06/15/21 [place]ba [place]udero [place] [id number] [place] [address] Hematology/Oncology 05/03/22 06/17/23 Chinyere Shea, RN [address] [place] [address] Specialty Conductor/Engineer Hematology/Oncology 05/22/22 Enid Rod LISW [address] [place] [address] Interlocking Tower Operator Hematology/Oncology 07/15/22 Anca Almonte MD [address] [place] [address] Oncology 12/19/22 06/17/23 Excel Developer Relationship Specialty Start Date End Date Sylvia Lizama MD [address] [place] [address] PCP - General Family Medicine 12/02/18 Rene Do DO [address] [place] [address] Referring Physical Medicine and Rehab 06/15/21 Melba Escudero MD [address] [place] [address] Hematology/Oncology 05/03/22 06/17/23 Chinyere Shea RN [address] [place] [address] Specialty Conductor/Engineer Hematology/Oncology 05/22/22 Enid Rod LISW [address] [place] [address] Interlocking Tower Operator Hematology/Oncology 07/15/22 Anca Almonte MD [address] [place] [address] Oncology 12/19/22 06/17/23 Excel Developer Relationship Specialty Start Date End Date Sylvia Lizama MD [address] [facility] [place] [address] PCP - General Family Medicine 12/02/18 Rene Do DO [address] [place] [address] Referring Physical Medicine and Rehab 06/15/21 Chinyere Shea RN [address] [place] [address] Specialty Conductor/Engineer Hematology/Oncology 05/22/22 Enid Rod LISW [address] [place] [address] Interlocking Tower Operator Hematology/Oncology 07/15/22 Prince Fang MD [address] [place], [place] [address] Hematology/Oncology 06/18/23 Eliana, [facility] [address] [place] [address] Optometry 08/25/23 Excel Developer Relationship Specialty Start Date End Date Sylvia Lizama MD [address] [facility] [place] [address] PCP - General Family Medicine 12/02/18 Rene Do DO [address] [place] [address] Referring Physical Medicine and Rehab 06/15/21 Excel Developer Relationship Specialty Start Date End Date Sylvia Lizama MD [address] [facility] [place] [address] PCP - General Family Medicine 12/02/18 Rene Do DO [address] [place] [address] Referring Physical Medicine and Rehab 06/15/21 Melba Escudero MD [address] [place] [address] Hematology/Oncology 05/03/22 Chinyere Shea RN [address] [place], [place] [address] Specialty Conductor/Engineer Hematology/Oncology 05/22/22 Enid Rod LISW [address] [place] [address] Interlocking Tower Operator Hematology/Oncology 07/15/22 Anca Almonte MD [address] [place] [address] Oncology 12/19/22 Excel Developer Relationship Specialty Start Date End Date Sylvia Lizama MD [address] [place] [address] PCP - General Family Medicine 12/02/18 Excel Developer Relationship Specialty Start Date End Date Sylvia Lizama MD [address] [facility] [place], [place] [address] PCP - General Family Medicine 12/02/18 Excel Developer Relationship Specialty Start Date End Date Sylvia Lizama MD [address] [facility] [place], [place] [address] PCP - General Family Medicine 12/02/18 Excel Developer Relationship Specialty Start Date End Date Sylvia Lizama MD [address] [facility] [place], [place] [address] PCP - General Family Medicine 12/02/18 [place] [address] [place] [address] Referring Physical Medicine and Rehab 06/15/21 Chinyere Shea, FRANCESCO [address] [place] [address] Specialty Conductor/Engineer Hematology/Oncology 05/22/22 Enid Rod LISW [address] [place] [address] Interlocking Tower Operator Hematology/Oncology 07/15/22 Prince Fang MD [address] [place] [address] Hematology/Oncology 06/18/23 Ctr, [facility] [address] [place] [address] Optometry 08/25/23 Excel Developer Relationship Specialty Start Date End Date Sylvia Lizama MD [address] [place] [address] PCP - General Family Medicine 12/02/18 [place] [address] [place] [address] Referring Physical Medicine and Rehab 06/15/21 Chinyere Shea RN [address] [place] [address] Specialty Conductor/Engineer Hematology/Oncology 05/22/22 Enid Rod LISW [address] [place] [address] Interlocking Tower Operator Hematology/Oncology 07/15/22 Prince Fang MD [address] [place] [address] Hematology/Oncology 06/18/23 Ctr, [facility] [address] [place] [address] Optometry 08/25/23 Excel Developer Relationship Specialty Start Date End Date Sylvia Lizama MD [address] [place] [address] PCP - General Family Medicine 12/02/18 [place] [address] [place] [address] Referring Physical Medicine and Rehab 06/15/21 Chinyere Shea RN [address] [address] Specialty Conductor/Engineer Hematology/Oncology 05/22/22 Enid Rod LISW [address] [place] [address] Interlocking Tower Operator Hematology/Oncology 07/15/22 Prince Fang MD [address] [place] [address] Hematology/Oncology 06/18/23 Ctr, [facility] [address] [place] [address] Optometry 08/25/23 Excel Developer Relationship Specialty Start Date End Date Sylvia Lizama MD [address] [place] [address] PCP - General Family Medicine 12/02/18 [place] [address] [place], [place] [address] Referring Physical Medicine and Rehab 06/15/21 Chinyere Shea, FRANCESCO [address] [place] [address] Specialty Conductor/Engineer Hematology/Oncology 05/22/22 Enid Rod LISW [address] [place] [address] Interlocking Tower Operator Hematology/Oncology 07/15/22 Prince Fang MD [address] [place] [address] Hematology/Oncology 06/18/23 Ctr, [facility] [address] [place] [address] Optometry 08/25/23 Excel Developer Relationship Specialty Start Date End Date Sylvia Lizama MD [address] [place] [address] PCP - General Family Medicine 12/02/18 [place] [id number] [place] [address] Referring Physical Medicine and Rehab 06/15/21 Chinyere Shea RN [address] [place] [address] Specialty Conductor/Engineer Hematology/Oncology 05/22/22 Enid Rod LISW [address] [place] [address] Interlocking Tower Operator Hematology/Oncology 07/15/22 Prince Fang MD [address] [place] [address] Hematology/Oncology 06/18/23 Ctr[facility] [address] [place] [address] Optometry 08/25/23 Excel Developer Relationship Specialty Start Date End Date Sylvia Lizama MD [address] [place] [address] PCP - General Family Medicine 12/02/18 [place] [address] [place] [address] Referring Physical Medicine and Rehab 06/15/21 Chinyere Shea RN [address] [place] [address] Specialty Conductor/Engineer Hematology/Oncology 05/22/22 nEid Rod LISW [address] [place] [address] Interlocking Tower Operator Hematology/Oncology 07/15/22 Prince Fang MD [address] [place] [address] Hematology/Oncology 06/18/23 Ctr, [facility] [address] [place] [address] Optometry 08/25/23 Excel Developer Relationship Specialty Start Date End Date Sylvia Lizama MD [address] [place] [address] PCP - General Family Medicine 12/02/18 [place] [address] [place] [address] Referring Physical Medicine and Rehab 06/15/21 Chinyere Shea, FRANCESCO [address] [place] [address] Specialty Conductor/Engineer Hematology/Oncology 05/22/22 Enid Rod LISW [address] [place] [address] Interlocking Tower Operator Hematology/Oncology 07/15/22 Prince Fang MD [address] [place] [address] Hematology/Oncology 06/18/23 Ctr, [facility] [address] [place] [address] Optometry 08/25/23 Excel Developer Relationship Specialty Start Date End Date Sylvia Lizama MD [address] [place] [address] PCP - General Family Medicine 12/02/18 [place] [address] [place] [address] Referring Physical Medicine and Rehab 06/15/21 Chinyere Shea RN [address] [place] [address] Specialty Conductor/Engineer Hematology/Oncology 05/22/22 Enid Rod LISW [address] [place] [address] Interlocking Tower Operator Hematology/Oncology 07/15/22 Prince Fang MD [address] [place] [address] Hematology/Oncology 06/18/23 Kirsten Monroy [address] [place] [address] Optometry 08/25/23 Excel Developer Relationship Specialty Start Date End Date Sylvia Lizaam MD [address] [place] [address] PCP - General Family Medicine 12/02/18 [place] [address] [place] [address] Referring Physical Medicine and Rehab 06/15/21 Chinyere Shea RN [address] [place] [address] Specialty Conductor/Engineer Hematology/Oncology 05/22/22 Enid Rod LISW [address] [place] [address] Interlocking Tower Operator Hematology/Oncology 07/15/22 Prince Fang MD [address] [place] [address] Hematology/Oncology 06/18/23 Kirsten Monroy [address] [place] [address] Optometry 08/25/23 Excel Developer Relationship Specialty Start Date End Date Sylvia Lizama MD [address] [place] [address] PCP - General Family Medicine 12/02/18 [place] [address] [place] [address] Referring Physical Medicine and Rehab 06/15/21 ShabbirChinyere lacey RN [address] [place] [address] Specialty Conductor/Engineer Hematology/Oncology 05/22/22 Enid Rod LISW [address] [place] [address] Interlocking Tower Operator Hematology/Oncology 07/15/22 Prince Fang MD [address] [place] [address] Hematology/Oncology 06/18/23 Ctr, [facility] [address] [place] [address] Optometry 08/25/23 Excel Developer Relationship Specialty Start Date End Date Sylvia Lizama MD [address] [place] [address] PCP - General Family Medicine 12/02/18 [place] [address] [place] [address] Referring Physical Medicine and Rehab 06/15/21 Chinyere Shea RN [address] [place] [address] Specialty Conductor/Engineer Hematology/Oncology 05/22/22 Enid Rod LISW [address] [place] [address] Interlocking Tower Operator Hematology/Oncology 07/15/22 Prince Fang MD [address] [place] [address] Hematology/Oncology 06/18/23 Ctr, [facility] [address] [place] [address] Optometry 08/25/23 Excel Developer Relationship Specialty Start Date End Date Sylvia Lizama MD [address] [place] [address] PCP - General Family Medicine 12/02/18 [place] [address] [place] [address] Referring Physical Medicine and Rehab 06/15/21 Chinyere Shea RN [address] [place] [address] Specialty Conductor/Engineer Hematology/Oncology 05/22/22 Enid Rod LISW [address] [place] [address] Interlocking Tower Operator Hematology/Oncology 07/15/22 Prince Fang MD [address] [place] [address] Hematology/Oncology 06/18/23 Eliana, Kirsten Gonzáles [address] [place] [address] Optometry 08/25/23 Excel Developer Relationship Specialty Start Date End Date Sylvia Lizama MD [address] [place] [address] PCP - General Family Medicine 12/02/18 [place] [address] [place] [address] Referring Physical Medicine and Rehab 06/15/21 Chinyere Shea RN [address] [place] [address] Specialty Conductor/Engineer Hematology/Oncology 05/22/22 Enid Rod LISW [address] [place] [address] Interlocking Tower Operator Hematology/Oncology 07/15/22 Prince Fang MD [address] [place] [address] Hematology/Oncology 06/18/23 Ctr, [facility] [address] [place] [address] Optometry 08/25/23 Excel Developer Relationship Specialty Start Date End Date Sylvia Lizama MD [address] [place] [address] PCP - General Family Medicine 12/02/18 [place] [address] [place] [address] Referring Physical Medicine and Rehab 06/15/21 Chinyere Shea RN [address] [place] [address] Specialty Conductor/Engineer Hematology/Oncology 05/22/22 Enid Rod LISW [address] [place] [address] Interlocking Tower Operator Hematology/Oncology 07/15/22 Prince Fang MD [address] [place] [address] Hematology/Oncology 06/18/23 [facility] [address] [place] [address] Optometry 08/25/23 Gini Ayala APRN.COMPENSATION ASSOCIATE [address] [place] [address] Otolaryngologist Family Medicine 08/30/24 Judith Pickard APRN.COMPENSATION ASSOCIATE [address] [place] [address] Otolaryngologist Family Medicine 08/30/24 Excel Developer Relationship Specialty Start Date End Date Sylvia Lizama MD [address] [place] [address] PCP - General Family Medicine 12/02/18 [place] [address] [place] [address] Referring Physical Medicine and Rehab 06/15/21 Chinyere Shea RN [address] [address] Specialty Conductor/Engineer Hematology/Oncology 05/22/22 Enid Rod LISW [address] [place] [address] Interlocking Tower Operator Hematology/Oncology 07/15/22 Prince Fang MD [address] [place] [address] Hematology/Oncology 06/18/23 Ctr, [facility] [address] [place] [address] Optometry 08/25/23 Gini Ayala APRN.COMPENSATION ASSOCIATE [address] [facility] [address] Otolaryngologist Family Medicine 08/30/24 Judith Pickard APRN.COMPENSATION ASSOCIATE [address] [place] [address] Otolaryngologist Family Medicine 08/30/24 Excel Developer Relationship Specialty Start Date End Date Sylvia Lizama MD [address] [place] [address] PCP - General Family Medicine 12/02/18 [place] [address] [place] [address] Referring Physical Medicine and Rehab 06/15/21 Chinyere Shea RN [address] [address] Specialty Conductor/Engineer Hematology/Oncology 05/22/22 Enid Rod LISW [address] [place] [address] Interlocking Tower Operator Hematology/Oncology 07/15/22 Prince Fang MD [address] [place] [address] Hematology/Oncology 06/18/23 Ctr, [facility] [address] [place] [address] Optometry 08/25/23 Gini Ayala APRN.COMPENSATION ASSOCIATE [address] [place] [address] Otolaryngologist Family Medicine 08/30/24 Judith Pickard APRN.COMPENSATION ASSOCIATE [address] [place] [address] Otolaryngologist Family Medicine 08/30/24 Excel Developer Relationship Specialty Start Date End Date Sylvia Lizama MD [address] [place], [place] [address] PCP - General Family Medicine 12/02/18 [place] [address] [place], [place] [address] Referring Physical Medicine and Rehab 06/15/21 Chinyere Shea, FRANCESCO [address] [place] [address] Specialty Conductor/Engineer Hematology/Oncology 05/22/22 Enid Rod LISW [address] [place] [address] Interlocking Tower Operator Hematology/Oncology 07/15/22 Prince Fang MD [address] [place] [address] Hematology/Oncology 06/18/23 Ctr, [facility] [address] [place] [address] Optometry 08/25/23 Gini Ayala APRN.COMPENSATION ASSOCIATE [address] [place] [address] Otolaryngologist Family Medicine 08/30/24 Judith Pickard APRN.COMPENSATION ASSOCIATE [address] [place] [address] Otolaryngologist Family Medicine 08/30/24 Excel Developer Relationship Specialty Start Date End Date Sylvia Lizama MD [address] [place] [address] PCP - General Family Medicine 12/02/18 [place] [address] [place] [address] Referring Physical Medicine and Rehab 06/15/21 Chinyere Shea, FRANCESCO [address] [place] [address] Specialty Conductor/Engineer Hematology/Oncology 05/22/22 Enid Rod LISW [address] [place] [address] Interlocking Tower Operator Hematology/Oncology 07/15/22 Prince Fang MD [address] [place] [address] Hematology/Oncology 06/18/23 Ctr, [facility] [address] [place] [address] Optometry 08/25/23 Gini Ayala APRN.COMPENSATION ASSOCIATE [address] [place] [address] Otolaryngologist Family Medicine 08/30/24 Judith Pickard ROLL CUTTING OPERATOR.COMPENSATION ASSOCIATE [address] [place] [address] Otolaryngologist Family Medicine 08/30/24 Excel Developer Relationship Specialty Start Date End Date Sylvia Lizama MD [address] [place] [address] PCP - General Family Medicine 12/02/18 [place] [address] [place] [address] Referring Physical Medicine and Rehab 06/15/21 Chinyere Shea RN [address] [facility] [place] [address] Specialty Conductor/Engineer Hematology/Oncology 05/22/22 Enid Rod LISW [address] [place] [address] Interlocking Tower Operator Hematology/Oncology 07/15/22 Prince Fang MD [address] [place] [address] Hematology/Oncology 06/18/23 Eliana, [facility] [address] [facility] [place] [address] Optometry 08/25/23 Gini Ayala, ROLL CUTTING OPERATOR.COMPENSATION ASSOCIATE [address] [facility] [place] [address] Otolaryngologist Family Medicine 08/30/24 Excel Developer Relationship Specialty Start Date End Date Sylvia Lizama MD [address] [place] [address] PCP - General Family Medicine 12/02/18 [place] [address] [place] [address] Referring Physical Medicine and Rehab 06/15/21 Chinyere Shea RN [address] [facility] [place] [address] Specialty Conductor/Engineer Hematology/Oncology 05/22/22 Enid Rod LISW [address] [place] [address] Interlocking Tower Operator Hematology/Oncology 07/15/22 Prince Fang MD [address] [place] [address] Hematology/Oncology 06/18/23 Ctr, [facility] [address] [place] [address] Optometry 08/25/23 Gini Ayala APRN.COMPENSATION ASSOCIATE [address] [place] [address] Otolaryngologist Family Medicine 08/30/24 Judith Pickard APRN.COMPENSATION ASSOCIATE [address] [place] [address] Otolaryngologist Family Medicine 08/30/24 Excel Developer Relationship Specialty Start Date End Date Sylvia Lizama MD [address] [place] [address] PCP - General Family Medicine 12/02/18 [place] [address] [place] [address] Referring Physical Medicine and Rehab 06/15/21 Chinyere Shea RN [address] [facility] [address] Specialty Conductor/Engineer Hematology/Oncology 05/22/22 Enid Rod LISW [address] [place] [address] Interlocking Tower Operator Hematology/Oncology 07/15/22 Prince Fang MD [address] [place] [address] Hematology/Oncology 06/18/23 Ctr, [facility] [address] [place] [address] Optometry 08/25/23 Gini Ayala, ROLL CUTTING OPERATOR.COMPENSATION ASSOCIATE [address] [place] [address] Otolaryngologist Family Medicine 08/30/24 Judith Pickard ROLL CUTTING OPERATOR.COMPENSATION ASSOCIATE [address] [place] [address] Otolaryngologist Family Medicine 08/30/24 Excel Developer Relationship Specialty Start Date End Date Sylvia Lizama MD [address] [place] [address] PCP - General Family Medicine 12/02/18 [place] [address] [place], [place] [address] Referring Physical Medicine and Rehab 06/15/21 Chinyere Shea, FRANCESCO [address] [place] [address] Specialty Conductor/Engineer Hematology/Oncology 05/22/22 Enid Rod LISW [address] [place] [address] Interlocking Tower Operator Hematology/Oncology 07/15/22 Prince Fang MD [address] [place] [address] Hematology/Oncology 06/18/23 Ctr, [facility] [address] [facility] [place] [address] Optometry 08/25/23 Gini Ayala APRN.COMPENSATION ASSOCIATE [address] [place] [address] Otolaryngologist Family Medicine 08/30/24 Judith Pickard APRN.COMPENSATION ASSOCIATE [address] [place] [address] Otolaryngologist Family Medicine 08/30/24 Excel Developer Relationship Specialty Start Date End Date Sylvia Lizama MD [address] [place] [address] PCP - General Family Medicine 12/02/18 [place] [address] [place] [address] Referring Physical Medicine and Rehab 06/15/21 Chinyere Shea, FRANCESCO [address] [place] [address] Specialty Conductor/Engineer Hematology/Oncology 05/22/22 Enid Rod LISW [address] [place] [address] Interlocking Tower Operator Hematology/Oncology 07/15/22 Prince Fang MD [address] [place] [address] Hematology/Oncology 06/18/23 Ctr, [facility] [address] [facility] [place] [address] Optometry 08/25/23 Gini Ayala APRN.COMPENSATION ASSOCIATE [address] [facility] [place] [address] Otolaryngologist Family Medicine 08/30/24 Judith Pickard APRN.COMPENSATION ASSOCIATE [address] [place] [address] Otolaryngologist Family Medicine 08/30/24 Excel Developer Relationship Specialty Start Date End Date Sylvia Lizama MD [address] [place] [address] PCP - General Family Medicine 12/02/18 [place] [address] [place] [address] Referring Physical Medicine and Rehab 06/15/21 Chinyere Shea, FRANCESCO [address] [place] [address] Specialty Conductor/Engineer Hematology/Oncology 05/22/22 Enid Rod LISW [address] [place] [address] Interlocking Tower Operator Hematology/Oncology 07/15/22 Prince Fang MD [address] [place] [address] Hematology/Oncology 06/18/23 Eliana, [facility] [address] [facility] [place] [address] Optometry 08/25/23 Gini Ayala, BECKY.COMPENSATION ASSOCIATE [address] [facility] [place] [address] Otolaryngologist Family Medicine 08/30/24 Judith Pickard APRN.COMPENSATION ASSOCIATE [address] [place] [address] Otolaryngologist Family Medicine 08/30/24 Excel Developer Relationship Specialty Start Date End Date Sylvia Lizama MD [address] [place] [address] PCP - General Family Medicine 12/02/18 [place] [address] [place] [address] Referring Physical Medicine and Rehab 06/15/21 Chinyere Shea, FRANCESCO [address] [place] [address] Specialty Conductor/Engineer Hematology/Oncology 05/22/22 Enid Rod LISW [address] [place] [address] Interlocking Tower Operator Hematology/Oncology 07/15/22 Prince Fang MD [address] [place] [address] Hematology/Oncology 06/18/23 Ctr, [facility] [address] [place] [address] Optometry 08/25/23 Gini Ayala APRN.COMPENSATION ASSOCIATE [address] [place] [address] Otolaryngologist Family Medicine 08/30/24 Judith Pickard ROLL CUTTING OPERATOR.COMPENSATION ASSOCIATE [address] [place] [address] Otolaryngologist Family Medicine 08/30/24 Excel Developer Relationship Specialty Start Date End Date Sylvia Lizama MD [address] [place], [place] [address] PCP - General Family Medicine 12/02/18 [place] [address] [place] [address] Referring Physical Medicine and Rehab 06/15/21 Chinyere Shea RN [address] [place] [address] Specialty Conductor/Engineer Hematology/Oncology 05/22/22 Enid Rod LISW [address] [place] [address] Interlocking Tower Operator Hematology/Oncology 07/15/22 Prince Fang MD [address] [place] [address] Hematology/Oncology 06/18/23 Ctr, [facility] [address] [place] [address] Optometry 08/25/23 Gini Ayala APRN.COMPENSATION ASSOCIATE [address] [facility] [place] [address] Otolaryngologist Family Medicine 08/30/24 Judith Pickard ROLL CUTTING OPERATOR.COMPENSATION ASSOCIATE [address] [place] [address] Otolaryngologist Family Medicine 08/30/24 Excel Developer Relationship Specialty Start Date End Date Sylvia Lizama MD [address] [place] [address] PCP - General Family Medicine 12/02/18 [place] [address] [place] [address] Referring Physical Medicine and Rehab 06/15/21 Chinyere Shea RN [address] [place] [address] Specialty Conductor/Engineer Hematology/Oncology 05/22/22 Enid Rod LISW [address] [place] [address] Interlocking Tower Operator Hematology/Oncology 07/15/22 Prince Fang MD [address] [place] [address] Hematology/Oncology 06/18/23 Ctr, [facility] [address] [place] [address] Optometry 08/25/23 Gini Ayala APRN.COMPENSATION ASSOCIATE [address] [place] [address] Otolaryngologist Family Medicine 08/30/24 Judith Pickard APRN.COMPENSATION ASSOCIATE [address] [place] [address] Otolaryngologist Family Medicine 08/30/24 Excel Developer Relationship Specialty Start Date End Date Sylvia Lizama MD [address] [place] [address] PCP - General Family Medicine 12/02/[place] [address] [place], [place] 54[address] Referring Physical Medicine and Rehab 06/15/21 Chinyere Shea, FRANCESCO [address] [place] [address] Specialty Conductor/Engineer Hematology/Oncology 05/22/22 Enid Rod LISW [address] [place] [address] Interlocking Tower Operator Hematology/Oncology 07/15/22 Prince Fang MD [address] [place] [address] Hematology/Oncology 06/18/23 Ctr, [facility] [address] [place] [address] Optometry 08/25/23 Gini Aylaa APRN.COMPENSATION ASSOCIATE [address] [facility] [place] [address] Otolaryngologist Family Medicine 08/30/24 Judith Pickard APRN.COMPENSATION ASSOCIATE [address] [place] [address] Otolaryngologist Family Medicine 08/30/24 Excel Developer Relationship Specialty Start Date End Date Sylvia Lizama MD [address] [place] [address] PCP - General Family Medicine 12/02/18 [place] [address] [place], [place] 0835[address] Referring Physical Medicine and Rehab 06/15/21 Chinyere Shea, FRANCESCO [address] [facility] [place] [address] Specialty Conductor/Engineer Hematology/Oncology 05/22/22 Enid Rod LISW [address] [place] [address] Interlocking Tower Operator Hematology/Oncology 07/15/22 Prince Fang MD [address] [facility] [place] [address] Hematology/Oncology 06/18/23 Ctr, [facility] [address] [place] [address] Optometry 08/25/23 Gini Ayala APRN.COMPENSATION ASSOCIATE [address] [facility] [place] [address] Otolaryngologist Family Medicine 08/30/24 Judith Pickard APRN.COMPENSATION ASSOCIATE [address] [place] [address] Otolaryngologist Family Medicine 08/30/24 Excel Developer Relationship Specialty Start Date End Date Sylvia Lizama MD [address] [place] [address] PCP - General Family Medicine 12/02/[place] [address] [place] [address] Referring Physical Medicine and Rehab 06/15/21 Chinyere Shea RN [address] [place] [address] Specialty Conductor/Engineer Hematology/Oncology 05/22/22 Enid Rod LISW [address] [facility] [place] [address] Interlocking Tower Operator Hematology/Oncology 07/15/22 Prince Fang MD [address] [place] [address] Hematology/Oncology 06/18/23 Kirsten [facility] [address] [place] [address] Optometry 08/25/23 Gini Ayala, BECKY.COMPENSATION ASSOCIATE [address] [facility] [place] [address] Otolaryngologist Family Medicine 08/30/24 Judith Pickard ROLL CUTTING OPERATOR.COMPENSATION ASSOCIATE [address] [place] [address] Otolaryngologist Family Medicine 08/30/24 Excel Developer Relationship Specialty Start Date End Date Sylvia Lizama MD [address] [place] [address] PCP - General Family Medicine 12/02/18 [place] [address] [place] [address] Referring Physical Medicine and Rehab 06/15/21 Chinyere Shea, FRANCESCO [address] [place] [address] Specialty Conductor/Engineer Hematology/Oncology 05/22/22 Enid Rod LISW [address] [place] [address] Interlocking Tower Operator Hematology/Oncology 07/15/22 Prince Fang MD [address] [place] [place] [address] Hematology/Oncology 06/18/23 Ctr, [facility] [address] [place] [address] Optometry 08/25/23 Gini Ayala APRN.COMPENSATION ASSOCIATE [address] [place] [address] Otolaryngologist Family Medicine 08/30/24 Judith Pickard APRN.COMPENSATION ASSOCIATE [address] [place] [address] Otolaryngologist Family Medicine 08/30/24 Team Status: Active Member [...] Other Provider Active Start: December 01, 2024 Excel Developer Relationship Specialty Start Date End Date Sylvia Lizama MD [address] [place] [address] PCP - General Family Medicine 12/02/18 [place] [address] [place] [address] Referring Physical Medicine and Rehab 06/15/21 Chinyere Shea RN [address] [place] [address] Specialty Conductor/Engineer Hematology/Oncology 05/22/22 Enid Rod LISW [address] [place] [address] Interlocking Tower Operator Hematology/Oncology 07/15/22 Prince Fang MD [address] [place] [address] Hematology/Oncology 06/18/23 Eliana, [facility] [address] [place] [address] Optometry 08/25/23 Gini Ayala APRN.COMPENSATION ASSOCIATE [address] [facility] [place] [address] Otolaryngologist Family Medicine 08/30/24 Judith Pickard APRN.COMPENSATION ASSOCIATE [address] [facility] [place] [address] Otolaryngologist Family Medicine 08/30/24 Excel Developer Relationship Specialty Start Date End Date Sylvia Lizama MD [address] [place] [address] PCP - General Family Medicine 12/02/18 [place] [address] [place] [address] Referring Physical Medicine and Rehab 06/15/21 Chinyere Shea RN [address] [place] [address] Specialty Conductor/Engineer Hematology/Oncology 05/22/22 Enid Rod LISW [address] [place] [address] Interlocking Tower Operator Hematology/Oncology 07/15/22 Prince Fang MD [address] [place] [address] Hematology/Oncology 06/18/23 Ctr, [facility] [address] [place] [address] Optometry 08/25/23 Gini Ayala, ROLL CUTTING OPERATOR.COMPENSATION ASSOCIATE [address] [place] [address] Otolaryngologist Family Medicine 08/30/24 Judith Pickard ROLL CUTTING OPERATOR.COMPENSATION ASSOCIATE [address] [place] [address] Otolaryngologist Family Medicine 08/30/24 Excel Developer Relationship Specialty Start Date End Date Sylvia Lizama MD [address] [place] [address] PCP - General Family Medicine 12/02/18 [place] [address] [place] [address] Referring Physical Medicine and Rehab 06/15/21 Chinyere Shea, FRANCESCO [address] [place] [address] Specialty Conductor/Engineer Hematology/Oncology 05/22/22 Enid Rod LISW [address] [place] [address] Interlocking Tower Operator Hematology/Oncology 07/15/22 Prince Fang MD [address] [place] [address] Hematology/Oncology 06/18/23 Ctr, [facility] [address] [facility] [place] [address] Optometry 08/25/23 Gini Ayala APRN.COMPENSATION ASSOCIATE [address] [facility] [place] [address] Otolaryngologist Family Medicine 08/30/24 Judith Pickard APRN.COMPENSATION ASSOCIATE [address] [place] [address] Otolaryngologist Family Medicine 08/30/24 Excel Developer Relationship Specialty Start Date End Date Sylvia Lizama MD [address] [facility] [place], [place] [address] PCP - General Family Medicine 12/02/18 [place] [address] [place], [place] [id number] Referring Physical Medicine and Rehab 06/15/21 Chinyere Shea, FRANCESCO [address] [place] [address] Specialty Conductor/Engineer Hematology/Oncology 05/22/22 Enid Rod LISW [address] [place] [address] Interlocking Tower Operator Hematology/Oncology 07/15/22 Prince Fang MD [address] [place] [address] Hematology/Oncology 06/18/23 Ctr, [facility] [address] [facility] [place] [address] Optometry 08/25/23 Gini Ayala APRN.COMPENSATION ASSOCIATE [address] [facility] [place] [address] Otolaryngologist Family Medicine 08/30/24 Judith Pickard APRN.COMPENSATION ASSOCIATE [address] [place] [address] Otolaryngologist Family Medicine 08/30/24 Excel Developer Relationship Specialty Start Date End Date Sylvia Lizama MD [address] [place] [address] PCP - General Family Medicine 12/02/18 [place] [address] [place] [address] Referring Physical Medicine and Rehab 06/15/21 Chinyere Shea, FRANCESCO [address] [place] [address] Specialty Conductor/Engineer Hematology/Oncology 05/22/22 Enid Rod LISW [address] [place] [address] Interlocking Tower Operator Hematology/Oncology 07/15/22 Prince Fang MD [address] [place] [place] [address] Hematology/Oncology 06/18/23 Eliana, [facility] [address] [place] [address] Optometry 08/25/23 Gini yAala, ROLL CUTTING OPERATOR.COMPENSATION ASSOCIATE [address] [place] [address] Otolaryngologist Family Medicine 08/30/24 Judith Pickard ROLL CUTTING OPERATOR.COMPENSATION ASSOCIATE [address] [place] [place] [address] Otolaryngologist Family Medicine 08/30/24 Excel Developer Relationship Specialty Start Date End Date Sylvia Lziama MD [address] [place] [address] PCP - General Family Medicine 12/02/18 [place] [address] [place] [address] Referring Physical Medicine and Rehab 06/15/21 Chinyere Shea RN [address] [place] [address] Specialty Conductor/Engineer Hematology/Oncology 05/22/22 Enid Rod LISW [address] [place] [address] Interlocking Tower Operator Hematology/Oncology 07/15/22 Prince Fang MD [address] [place] [address] Hematology/Oncology 06/18/23 Eliana, [facility] [address] [place] [address] Optometry 08/25/23 Gini Ayala, ROLL CUTTING OPERATOR.COMPENSATION ASSOCIATE [address] [place] [address] Otolaryngologist Family Medicine 08/30/24 Judith Pickard ROLL CUTTING OPERATOR.COMPENSATION ASSOCIATE [address] [place] [address] Otolaryngologist Family Medicine 08/30/24 Excel Developer Relationship Specialty Start Date End Date Sylvia Lizama MD [address] [place] [address] PCP - General Family Medicine 12/02/[place] [address] [place] [address] Referring Physical Medicine and Rehab 06/15/21 Chinyere Shea RN [address] [place] [address] Specialty Conductor/Engineer Hematology/Oncology 05/22/22 Enid Rod LISW [address] [place] [address] Interlocking Tower Operator Hematology/Oncology 07/15/22 Prince Fang MD [address] [place] [address] Hematology/Oncology 06/18/23 Ctr, [facility] [address] [facility] [place] [address] Optometry 08/25/23 Gini Ayala, ROLL CUTTING OPERATOR.COMPENSATION ASSOCIATE [address] [facility] [place] [address] Otolaryngologist Family Medicine 08/30/24 Judith Pickard, ROLL CUTTING OPERATOR.COMPENSATION ASSOCIATE [address] [place] [address] Otolaryngologist Family Medicine 08/30/24 Excel Developer Relationship Specialty Start Date End Date Sylvia Lizama MD [address] [place] [address] PCP - General Family Medicine 12/02/18 [place] [address] [place], [place] [id number] Referring Physical Medicine and Rehab 06/15/21 Chinyere Shea RN [address] [place] [address] Specialty Conductor/Engineer Hematology/Oncology 05/22/22 Enid Rod LISW [address] [place] [address] Interlocking Tower Operator Hematology/Oncology 07/15/22 Prince Fang MD [address] [place] [address] Hematology/Oncology 06/18/23 Ctr, [facility] [address] [place] [address] Optometry 08/25/23 Gini Ayala APRN.COMPENSATION ASSOCIATE [address] [place] [address] Otolaryngologist Family Medicine 08/30/24 Judith Pickard APRN.COMPENSATION ASSOCIATE [address] [place] [address] Otolaryngologist Family Medicine 08/30/24 Excel Developer Relationship Specialty Start Date End Date Sylvia Lizama MD [address] [place] [address] PCP - General Family Medicine 12/02/18 [place] [address] [place], [place] [id number] Referring Physical Medicine and Rehab 06/15/21 Chinyere Shea, FRANCESCO [address] [place] [address] Specialty Conductor/Engineer Hematology/Oncology 05/22/22 Enid Rod LISW [address] [place] [address] Interlocking Tower Operator Hematology/Oncology 07/15/22 Prince Fang MD [address] [place] [address] Hematology/Oncology 06/18/23 Ctr, [facility] [address] [place] [address] Optometry 08/25/23 Gini Ayala APRN.COMPENSATION ASSOCIATE [address] [facility] [place] [address] Otolaryngologist [facility] 08/30/24 Judith Pickard APRN.COMPENSATION ASSOCIATE [address] [place] [address] Otolaryngologist [facility] 08/30/24 Team Status: Active Member [...] End: December 02, 2024 Christina Knox NP TOUR ACTOR-C Attending Provider Active Start: December 02, 2024 End: December 02, 2024 Team Status: Inactive Member Role/Relationship Status Dates Dr. Sylvia Lizama MD Primary Care Provider Active Start: December 07, 2024 End: December 07, 2024 Dr. Rafat Casper MD Attending Provider Active Start: December 07, 2024 End: December 07, 2024 Team Status: Active Member Role/Relationship Status Dates Dr. Sylvai Lizama MD Primary Care Provider Active Start: [...] End: December 15, 2024 Christina Knox NP TOUR ACTOR-C Attending Provider Active Start: December 15, 2024 [...] Provider Active Star t: April 01, 2025 Excel Developer Relationship Specialty Start Date End Date Sylvia Lizama MD [address] [place], [place] [address] PCP - General Family Medicine 12/02/18 [place] [address] [place] [address] Referring Physical Medicine and Rehab 06/15/21 Chinyere Shea RN [address] [place], [place] [address] Specialty Conductor/Engineer Hematology/Oncology 05/22/22 Enid Rod LISW [address] [place] [address] Interlocking Tower Operator Hematology/Oncology 07/15/22 Prince Fang MD [address] [place], [place] [address] Hematology/Oncology 06/18/23 Kirsten Monroy [address] [place] [address] Optometry 08/25/23 Gini Ayala APRN.COMPENSATION ASSOCIATE [address] [place], [place] [address] [facility] 08/30/24 Judith Pickard APRN.COMPENSATION ASSOCIATE [address] [place] [address] [facility] 08/30/24 Team Status: Inactive Member Role/Relationship Status Dates [...] 2024 End: December 15, 2024 Christina Knox TOUR ACTOR, TOUR ACTOR-C Attending Provider Active Start: December 15, 2024 End: December 15, 2024 Team Status: Inactive Member Role/Relationship Status Dates Dr. Sylvia Lizama MD Primary Care Provider Active Start: April 01, 2025 End: April 05, 2025 Dr. Chase Jones MD Emergency Provider Active Sta rt: April 01, 2025 End: April 05, 2025 Dr. Andrade Tapia DO Admit Provider Active Star t: April 01, 2025 End: April 05, 2025 Dr. Andrade Tapia DO Attending Provider Active Start: April 01, 2025 End: April 05, 2025 Team Status: Active Member Role/Relationship Status [...] Provider Active Star t: April 01, 2025 Team Status: Active Member Role/Relationship Status Dates Dr. Sylvia Lizama MD Primary Care Provider Active Start: April 02, 2025 Dr. Chase Jones MD Emergency Provider Active Sta rt: April 02, 2025 Dr. Andrade Tapia DO Admit Provider Active Star t: April 02, 2025 Dr. Andrade Tapia DO Attending Provider Active Start: April 02, 2025 Dr. Andrade Tapia DO Other Provider Active Star t: April 02, 2025 Team Status: Active Member Role/Relationship Status Dates Dr. Sylvia Lizama MD Primary Care Provider Active Start: April 03, 2025 Dr. Chase Jones MD Emergency Provider Active Sta rt: April 03, 2025 Dr. Andrade Tapia DO Admit Provider Active Star t: April 03, 2025 Dr. Andrade Tapia DO Attending Provider Active Start: April 03, 2025 Dr. Andrade Tapia DO Other Provider Active Star t: April 03, 2025 Team Status: Active Member Role/Relationship Status Dates Dr. Sylvia Lizama MD Primary Care Provider Active Start: April 04, 2025 Dr. Chase Jones MD Emergency Provider Active Sta rt: April 04, 2025 Dr. Andrade Tapia DO Admit Provider Active Star t: April 04, 2025 Dr. Andrade Tapia DO Attending Provider Active Start: April 04, 2025 Dr. Andrade Tapia DO Other Provider Active Star t: April 04, 2025 Team Status: Active Member Role/Relationship Status Dates Dr. Sylvia Lizama MD Primary Care Provider Active Start: April 05, 2025 Dr. Chase Jones MD Emergency Provider Active Sta rt: April 05, 2025 Dr. Andrade Tapia DO Admit Provider Active Star t: April 05, 2025 Dr. Andrade Tapia DO Attending Provider Active Start: April 05, 2025 Dr. Andrade Tapia DO Other Provider Active Star t: April 05, 2025 Excel Developer Relationship Specialty Start Date End Date Sylvia Lizama MD [address] [place] [address] PCP - General Family Medicine 12/02/18 [place] [address] [place] [address] Referring Physical Medicine and Rehab 06/15/21 Chinyere Shea, FRANCESCO [address] [place] [address] Specialty Conductor/Engineer Hematology/Oncology 05/22/22 Enid Rod LISW [address] [place] [address] Interlocking Tower Operator Hematology/Oncology 07/15/22 Prince Fang MD [address] [place] [address] Hematology/Oncology 06/18/23 Ctr, [facility] [address] [place] [address] Optometry 08/25/23 Gini Ayala, ROLL CUTTING OPERATOR.COMPENSATION ASSOCIATE [address] [place] [address] Otolaryngologist Family Medicine 08/30/24 Judith Pickard, ROLL CUTTING OPERATOR.COMPENSATION ASSOCIATE [address] [place] [address] Otolaryngologist Family Medicine 08/30/24 Excel Developer Relationship Specialty Start Date End Date Sylvia Lizama MD [address] [place], [place] [address] PCP - General Family Medicine 12/02/18 [place] [address] [place] [address] Referring Physical Medicine and Rehab 06/15/21 Chinyere Shea RN [address] [place] [address] Specialty Conductor/Engineer Hematology/Oncology 05/22/22 Enid Rod LISW [address] [facility] [place] [place] [address] Interlocking Tower Operator Hematology/Oncology 07/15/22 Prince Fang MD [address] [place] [address] Hematology/Oncology 06/18/23 Eliana, [facility] [address] [place] [address] Optometry 08/25/23 Gini Ayala APRN.COMPENSATION ASSOCIATE [address] [facility] [address] Otolaryngologist Family Medicine 08/30/24 Judith Pickard ROLL CUTTING OPERATOR.COMPENSATION ASSOCIATE [address] [facility] [place] [address] Otolaryngologist Family Medicine 08/30/24 Excel Developer Relationship Specialty Start Date End Date Sylvia Lizama MD [address] [place] [address] PCP - General Family Medicine 12/02/18 [place] [address] [place] [address] Referring Physical Medicine and Rehab 06/15/21 Chinyere Shea RN [address] [place] [address] Specialty Conductor/Engineer Hematology/Oncology 05/22/22 Enid Rod LISW [address] [place] [address] Interlocking Tower Operator Hematology/Oncology 07/15/22 Prince Fang MD [address] [place] [address] Hematology/Oncology 06/18/23 Ctr, [facility] [address] [place] [address] Optometry 08/25/23 Gini Ayala APRN.COMPENSATION ASSOCIATE [address] [place], [place] [address] [facility] 08/30/24 Judith Pickard APRN.COMPENSATION ASSOCIATE [address] [place], [place] [address] [facility] 08/30/24 Goals (unrecognized section and content) Goals [...] BE BASED ON THE PRIMARY CLINICAL RECORDS. [facility] [employer] provides no warranty or guarantee of the accuracy or completeness of information in this document.
--- NOTE | 2025-05-15 16:05 | RAD_ITS ---
PROCEDURE: CHEST PA AND LATERAL 05/15/2025 REASON FOR EXAM: WEAKNESS TECHNIQUE: CHEST PA AND LATERAL COMPARISON: 11/29/2024 FINDINGS: Hardware: EKG leads overlie the chest Heart: The heart size is normal. Mediastinum: The mediastinal contour is unremarkable. Lungs: The lungs are clear. Bones: Degenerative changes are identified within the thoracic spine, and shoulders. RAD/Chest PA and Lateral IMPRESSION: No acute pulmonary process Reading Location: [id number]
[2025-05-15 16:12] LABS: AST(SGOT) 21 U/L (<=31); Alanine Aminotransfer ALT/SGPT 8 U/L (<=34); Albumin, Serum 3.9 g/dL (3.4-4.8); Alkaline Phosphatase 77 U/L (35-104); Anion Gap 12 (5-15); BUN 14 mg/dL (4-19); BUN/Creat Ratio 13.4 RATIO (10-20); Calcium,Total 9.5 mg/dL (7.6-11.0); Carbon Dioxide 25.4 mmol/L (21.0-32.0); Chloride 102 mmol/L (98-108); Globulin 1.9 g/dL (2.2-4.2); Glucose 107 mg/dL (70-99); Potassium 4.4 mmol/L (3.3-5.1); Troponin T High Sensitivity 15 ng/L (<=14)
[2025-05-15 16:56] LABS: Mucous, Urine 0 SEEN /hpf (<or=2+)
[2025-05-15 17:10] LABS: Color, Urine Yellow (Yellow); Glucose, Dipstick Normal (Normal); Ketone-Dipstick Negative (Negative); Leukocyte Esterase-Dipstick Negative /ul (Negative); Nitrite-Dipstick Negative (Negative); Occult Blood-Urine 10 /ul (Negative); Protein-Dipstick Negative (Negative); Specific Gravity, Urine 1.005 (1.002-1.030); Urine Bilirubin Dipstick Negative (Negative)
[2025-05-15 17:41] LABS: Squamous Epithelial Cells - UA 5-10 SEEN /hpf (5-10)
[2025-05-15 17:44] LABS: Red Blood Cells-Urine 0-5 SEEN /hpf (0-5)
[2025-05-15 18:06] LABS: Troponin T High Sens 2 HR 15 ng/L (<=14)
[2025-05-15 20:12] LABS: Troponin T High Sens 4 HR 16 ng/L (<=14)
== END 2025-05-15 22:39 | disposition home or self-care (01) ==
PROVIDERS: Emergency Provider Emergency Medicine; PCP Family Medicine; Visit Provider Emergency Medicine
DX: I10 Essential (primary) hypertension (principal); G47.33 Obstructive sleep apnea (adult) (pediatric); R53.1 Weakness; Z11.52 Encounter for screening for COVID-19; K21.9 Gastro-esophageal reflux disease without esophagitis; Z79.01 Long term (current) use of anticoagulants; Z79.890 Hormone replacement therapy; Z86.718 Personal history of other venous thrombosis and embolism; Z90.5 Acquired absence of kidney
CPT/HCPCS: 70450; 71046; 80053; 81001; 83605; 84484; 85025; 85610; 85730; 87040; 87086; 87149; 87631; 93005; 96361; 96374; 99285; A4216

== ENCOUNTER 2025-06-07 12:24 | Inpatient (IN) | payer MEDICARE, OTHER, SELFPAY ==
[2025-06-07] VITALS (14 sets, daily range): BP systolic 144–236; BP diastolic 63–136; PULSE 64–80; RESP 11–18; TEMP 36.6–36.9; O2SAT 98–100; BMI 47.0; BMI 44.3
--- NOTE | 2025-06-07 13:29 | CT_ITS ---
PROCEDURE: BRAIN/HEAD WITHOUT CONTRAST 06/07/2025 REASON FOR EXAM: DIZZINESS, HTN TECHNIQUE: Procedure Code: CTBR Modality: CT Procedure: BRAIN/HEAD WITHOUT CONTRAST Coronal and Sagittal reconstruction series were provided. One or more dose reduction techniques were used (e.g., Automated exposure control, adjustment of the mA and/or kV according to patient size, use of iterative reconstruction technique. RADIATION DOSE SUMMARY: CTDlvol: 45 mGy DLP: 846 mGycm COMPARISON: May 15, 2025, April 01, 2025 FINDINGS: Brain: There is no evidence of hemorrhage, acute ischemia or mass. No extra- axial fluid collection, midline shift or mass effect. Low-density in the periventricular white matter and to a lesser extent the deep white matter seen. CSF Spaces: Mild generalized cerebral atrophy Sinuses/Mastoids: Mucous retention cyst or polyp posterior inferior left maxillary sinus and posterior ethmoid air cells on the right. Bones: No fracture CT/Brain/Head without Contrast IMPRESSION: 1. No evidence of intracranial hemorrhage or acute ischemia. 2. Changes of chronic microvascular ischemia and volume loss. Reading Location: [id number]
--- NOTE | 2025-06-07 13:30 | EKG12_ITS ---
Test Reason : HTN Blood Pressure : */* mmHG Vent. Rate : 64 BPM Atrial Rate : 64 BPM P-R Int : 162 ms QRS Dur : 94 ms QT Int : 434 ms P-R-T Axes : 49 -3 39 degrees QTcB Int : 447 ms Normal sinus rhythm Minimal voltage criteria for LVH, may be normal variant ( R in aVL ) Inferior infarct , age undetermined Abnormal ECG Confirmed by NANETTE ROMERO, ROQUE ([id number]), editor news DARIEN SALMERON ([id number]) on 06/08/2025 9:40:52 AM Referred By: Confirmed By: ROQUE FITZPATRICK MD
[2025-06-07 13:35] LABS: Mucous, Urine 0 SEEN /hpf (<or=2+); Red Blood Cells-Urine 0 SEEN /hpf (0-5); Squamous Epithelial Cells - UA 0 SEEN /hpf (5-10)
[2025-06-07 13:39] LABS: Color, Urine Straw (Yellow); Glucose, Dipstick Normal (Normal); Ketone-Dipstick Negative (Negative); Leukocyte Esterase-Dipstick Negative /ul (Negative); Nitrite-Dipstick Negative (Negative); Occult Blood-Urine 10 /ul (Negative); Protein-Dipstick Negative (Negative); Specific Gravity, Urine 1.010 (1.002-1.030); Urine Bilirubin Dipstick Negative (Negative)
[2025-06-07 13:40] LABS: Hematocrit 39.3 % (37-47); Hemoglobin 13.3 g/dL (12.0-15.0); Immature Granulocytes Count 0.010 X10^3/uL (0.0-0.0); Mean Corp Hgb Conc 33.8 g/dL (32-36); Mean Corpuscular Volume 94.7 fL (81-99); Mean Platelet Vol. 9.7 fl (6.2-12.0); NRBC Flagged by Analyzer 0 % (0-5); Platelet Count 157 K/mm3 (150-450); RBC Distribution Width CV 13.0 % (11.6-14.6); RBC Distribution Width SD 45.2 fl (35.1-43.9); Red Blood Count 4.15 M/mm3 (4.2-5.4); White Blood Count 3.9 K/mm3 (4.4-11.0)
[2025-06-07 14:01] LABS: Anion Gap 11 (5-15); BUN 11 mg/dL (4-19); BUN/Creat Ratio 15.0 RATIO (10-20); Calcium,Total 9.5 mg/dL (7.6-11.0); Carbon Dioxide 26.8 mmol/L (21.0-32.0); Chloride 105 mmol/L (98-108); Estimated Creatinine Clearance 66.74 ml/min (50-250); Glucose 94 mg/dL (70-99); Potassium 3.6 mmol/L (3.3-5.1)
--- NOTE | 2025-06-07 14:55 | EX.ED.DYSGE1 ---
HPI History of Present Illness Chief Complaint: Hypertension Informant: patient Narrative Narrative: Patient is an 79-year-old female with history of DVT on Eliquis, non-Hodgkin's lymphoma, hypertension, vertigo, spinal stenosis, neuropathy and restless leg syndrome presenting with worsening dizziness and elevated blood pressure. She has a longstanding history of vertigo and dizziness however her symptoms have been worse over the past 2 to 3 weeks. Her PCP has been working on lowering her blood pressure and adjusting her medications. She states that for the past few days she has been having worsening dizziness which she describes more as a lightheadedness but there is a component of vertigo however reports it is different than her typical vertigo. She states she has been keeping on her blood pressure and it has been in the 180s and a couple times above 200 for the systolic of the last few days. She notes that sometimes it feels like it is hard to breathe but denies any shortness of breath. Denies any cough or URI symptoms. Denies any chest pain. Denies any recent falls or head injuries. States her symptoms are worse when she stands up or with head movements. Is on carvedilol 25 mg twice daily, losartan 100 mg daily and has been taking hydralazine 10 mg twice daily for blood pressure over 150 systolic. States that she did have all of these medications today. She denies any new numbness or tingling. No other complaints or concerns reported at this time [facility] Medical History Elevated blood pressure reading with diagnosis of hypertension Hypertension Morbid obesity Restless leg syndrome Neuropathy Lumbar radiculopathy Cervical spinal stenosis Lumbar spinal stenosis History of migraine GERD (gastroesophageal reflux disease) CHRISTIANA (obstructive sleep apnea) Osteoarthritis DVT (deep venous thrombosis) Post-menopausal Dyspnea History of stress test Ovarian tumor Anticoagulant long-term use Non Hodgkin's lymphoma Dehiscence of surgical wound GERD (gastroesophageal reflux disease) Restless leg syndrome Peripheral neuropathy Osteoarthritis Hypertension Home Medications ?Medication ?Instructions ?Recorded ?Last Taken ?Type multivitamin with folic acid 400 1 tab PO DAILY vitamin 08/01/18 11/25/24 History mcg tablet (Thera) apixaban 5 mg tablet 5 mg PO BID blood thinner 08/13/20 11/25/24 History levothyroxine 75 mcg tablet 75 mcg PO DAILY thyroid 07/30/22 11/25/24 History carvedilol 25 mg tablet 25 mg PO BID blood pressure 03/24/24 11/25/24 History gabapentin 400 mg capsule 400 mg PO BID nerve pain 03/24/24 11/25/24 History meclizine 25 mg tablet 25 mg PO TID PRN dizziness 07/04/24 Unknown History omeprazole 20 mg capsule,delayed 20 mg PO DAILY PRN acid reflux 07/04/24 11/25/24 History release albuterol sulfate 90 mcg/actuation 2 puff inhalation Q4H PRN Wheezing 11/26/24 11/25/24 History aerosol inhaler (Ventolin HFA) acetaminophen 325 mg tablet 1,000 mg (3.0769 x 325 mg) PO Q8H 04/04/25 Unknown Rx PRN PRN Pain 1-10 Or Fever>100.7 #0 tabs clonidine HCl 0.1 mg tablet 0.1 mg PO BID 05/15/25 Unknown History losartan 100 mg tablet 100 mg PO DAILY 05/15/25 Unknown History spironolactone 25 mg tablet 25 mg PO DAILY 05/15/25 Unknown History Allergy/AdvReac Type Severity Reaction Status Date / Time COVID-19 vaccine, mRNA, Allergy Anaphylaxis Verified 06/07/25 12:29 [id number], erythromycin base Allergy Rash Verified 06/07/25 12:29 (Erythromycin Base) lisinopril Allergy Swelling Verified 06/07/25 12:29 venom-wasp (wasp) Allergy NEEDS Verified 06/07/25 12:29 FOLLOW-UP amlodipine AdvReac Swelling Verified 06/07/25 12:29 latex AdvReac Swelling Verified 06/07/25 12:29 Family History Mother Hypertension Surgical History S/P laparoscopic cholecystectomy S/P hysterectomy H/O laminectomy History of partial nephrectomy History of tonsillectomy History of total knee arthroplasty History of total abdominal hysterectomy Social History Smoking Status: Never smoker ROS ROS ED Constitutional Constitutional ED: Denies chills or fever(s) Eyes Eyes: Denies blurry vision or change in vision ENT ENT ED: Denies rhinorrhea or sore throat Cardiovascular Cardiovascular: Denies chest pain Respiratory/Chest Respiratory/Chest: Reports dyspnea; Denies cough or sputum Gastrointestinal Gastrointestinal: Denies abdominal pain, nausea or vomiting Musculoskeletal Musculoskeletal: Denies arthralgias or myalgias Neurologic Neurologic: Reports paresthesias RLE and LLE, weakness and other Details: States she feels generally weak ; Denies headache(s) Hematologic/Lymphatic Hematologic/Lymphatic: Reports easy bleeding, easy bruising and other Details: On Eliquis EXAM Physical Exam Const Vital Signs: 06/07/25 12:25 06/07/25 13:25 06/07/25 13:35 Temperature 98.5 F Temperature Source Oral Pulse Rate 65 Respiratory Rate 11 L Respiratory Pattern Normal Blood Pressure 226/95 H 166/136 H Blood Pressure Mean 138 146 Pulse Ox 99 Oxygen Delivery Method Room Air 06/07/25 13:38 06/07/25 14:00 06/07/25 14:16 Temperature Temperature Source Pulse Rate 67 64 Respiratory Rate 16 Respiratory Pattern Blood Pressure 214/85 H 236/63 H Blood Pressure Mean 128 120 Pulse Ox 98 Oxygen Delivery Method 06/07/25 15:16 Temperature Temperature Source Pulse Rate 65 Respiratory Rate 14 Respiratory Pattern Blood Pressure 211/85 H Blood Pressure Mean 127 Pulse Ox 98 Oxygen Delivery Method Room Air Positive well nourished and well developed General Appearance ED: well developed and NAD HEENT Reports TM's clear and moist mucous membranes Tympanic Membrane ED: Yes TM's clear Eyes PERRL and EOMs intact bilaterally Neck supple and no JVD Chest Wall inspection of chest normal and palpation of chest normal Resp normal respiratory effort Resp Narrative: Slightly rhonchorous breath sounds Auscultation: Negative for wheezes or diminished lung sounds Cardio regular rate, regular rhythm and no murmurs GI normal to inspection, nondistended, normoactive bowel sounds and non-tender Extremity Extremity Narrative: Trace pedal edema present Neuro oriented x3, CN's II-XII intact bilaterally and no sensory deficits noted Neuro Narrative: Normal [id number]. No nystagmus appreciated. No truncal ataxia Sensorium / Orientation: alert Motor Exam: strength 5/5 throughout; Negative for general weakness Psych mental status grossly normal Skin no rashes or lesions noted and no wounds MDM MDM MDM Narrative Medical decision making narrative: Patient evaluated for worsening dizziness and elevated high blood pressure. Is not clear if her dizziness is lightheadedness versus vertiginous however sounds like it is likely more lightheadedness per the patient. Is given a dose of meclizine in the emergency room as she does also have a history of vertigo. She is not any focal neurologic deficits. Differential includes not limited to intracranial hemorrhage, hypertensive urgency, acute renal failure, symptomatic anemia, infection. CBC shows a mild leukopenia with a white count of 3.9 which is nonspecific. Remainder is largely normal. BMP is normal. Urinalysis normal and does not show proteinuria. CT of the brain shows some chronic microvascular changes but no acute process. Chest x-ray shows findings of LVH but not consistent with ACS. Patient is monitored and continues to be hypertensive in the emergency room. Is given a dose of 10 mg labetalol in the emergency room. Patient reevaluated. Blood pressure still quite elevated with systolics over 200. States she just does not feel well. I will admit for further blood pressure control and discussed with hospitalist. Patient ordered additional IV hydralazine. Case discussed with Dr. Glover,hospitalist for admission Lab Data Attestation: I reviewed the patient's lab results. Labs: Laboratory Results - last 24 hr 06/07/25 06/07/25 12:33 13:16 WBC 3.9 L RBC 4.15 L Hgb 13.3 Hct 39.3 MCV 94.7 MCH 32.0 MCHC 33.8 RDW Std Deviation 45.2 H RDW Coeff of [place] 13.0 Plt Count 157 MPV 9.7 Immature Gran % (Auto) 0.300 Neut % (Auto) 51.7 Lymph % (Auto) 30.7 [place] % (Auto) 12.7 H Eos % (Auto) 4.1 Baso % (Auto) 0.5 Absolute Neuts (auto) 2.0 Absolute Lymphs (auto) 1.19 Nucleated RBC % 0 Sodium 144 Potassium 3.6 Chloride 105 Carbon Dioxide 26.8 Anion Gap 11 BUN 11 Creatinine 0.71 Estim Creat Clear Calc 66.74 Est GFR (MDRD) Non-Af 86 BUN/Creatinine Ratio 15.0 Glucose 94 Calcium 9.5 Urine Color Straw Urine Clarity Clear Urine pH 8.0 Ur Specific [place] 1.010 Urine Protein Negative Urine Glucose (UA) Normal Urine Ketones Negative Urine Occult Blood 10 H Urine Nitrite Negative Urine Bilirubin Negative Urine Urobilinogen Normal Ur Leukocyte Esterase Negative Urine RBC 0 SEEN Urine WBC 0 SEEN Ur Squamous Epith Cells 0 SEEN Urine Bacteria 0 SEEN Urine Mucus 0 SEEN Radiography Diagnostic Testing: Clinical Impression(s) from Imaging Studies Brain CT 06/07/25 13:29 IMPRESSION: 1. No evidence of intracranial hemorrhage or acute ischemia. 2. Changes of chronic microvascular ischemia and volume loss. Reading Location: [facility] Rhythm Strip Rhythm Strip: Sinus Rhythm Rate: 64 Ectopy: None EKG Initial EKG: Attestation: I personally reviewed and interpreted this EKG as follows: Interpretation: Sinus Rhythm Comments: Normal sinus rhythm at a rate of 64 bpm Normal axis Normal intervals Minimal voltage criteria for LVH Normal ST segment Prior EKG tracings: available for review Prior: Unchanged Discharge Plan Triage Chief Complaint: Hypertension ED Provider: Tanisha Bahena Dx/Rx/DC Orders Clinical Impression: Accelerated hypertension, Dizziness, Current use of chcf anticoagulation Prescriptions: No Action multivitamin with folic acid [Thera] 1 TABLET tablet 1 tab PO DAILY apixaban 5 MG tablet 5 mg PO BID levothyroxine 75 mcg Tablet 75 mcg PO DAILY carvedilol 25 mg tablet 25 mg PO BID gabapentin 400 mg capsule 400 mg PO BID albuterol sulfate [Ventolin HFA] 90 mcg/actuation HFA aerosol inhaler 2 puff inhalation Q4H PRN (Reason: Wheezing) Rx Instructions: with spacer clonidine HCl 0.1 mg tablet 0.1 mg PO BID spironolactone 25 mg tablet 25 mg PO DAILY losartan 100 mg tablet 100 mg PO DAILY omeprazole 20 mg capsule,delayed release(DR/EC) 20 mg PO DAILY PRN (Reason: acid reflux) meclizine 25 mg tablet 25 mg PO TID PRN (Reason: dizziness) Patient Comments: PT STATES SHE SHOULD TAKE THIS BUT DOESN'T, ONLY IF SHE IS DIZZY. acetaminophen 325 mg Tablet 1,000 mg PO Q8H PRN PRN (Reason: Pain 1-10 Or Fever>100.7) Qty: 0 0RF Primary Care Provider: Ever Kilgore Referrals: Ever Kilgore MD [Primary Care Provider] - Print Language: [place]i Disposition Disposition: Acute Care Hospital [facility]
--- NOTE | 2025-06-07 16:00 | PCM.HP.STD ---
HPI - General General Date of Admission: 06/07/25 Date of Service: 06/07/25 Chief Complaint: High blood pressure HPI Narrative AYAZ HERNANDEZ, is a 79-year-old female with a history of DVT on Eliquis, non-Hodgkin's lymphoma, hypothyroidism, GERD, hypertension, neuropathy who presented [facility] ED 06/07/2025 due to elevated blood pressure and dizziness. She notes longstanding history of vertigo and dizziness but symptoms have been worse over the past 2 to 3 weeks, PCP is presently adjusting her blood pressure medications but the past few days she has had worsening dizziness which is more of a lightheadedness though there is a component as well that seems more consistent with vertigo. She reports the past couple of days systolic blood pressure has been 180s to low 200s despite taking carvedilol 25 mg twice daily and losartan 100 mg daily, takes hydralazine twice daily but only blood pressures over 150, did have all of his medications today. In the ED blood pressure 226/95, patient afebrile, heart rate of 65, pulse ox 99% on room air. CBC with white count of 3.9 hemoglobin 13.3, UA not suggestive of infection, BMP unremarkable. CT with chronic changes, no acute process. Patient given labetalol and hydralazine but blood pressure still remained in the 220s patient felt generally unwell, hospitalist contacted for admission. Patient evaluated family member at bedside. She reports she has been struggling with her blood pressure for the past year, for the past 2 weeks she has had intermittent feeling of lightheadedness and dizziness that she cannot really describe and frequently has headaches and sometimes feels her vision is off but is not sure if this directly associates with her blood pressure readings, reports recently she has been staying in the 180s. Had 10 of hydralazine added recently but does not feel that this had any effect. Reports she hears a ?Ch Ch Ch? sound in her head that she does not believe is tinnitus and is worse when she takes hydralazine but overall is always there. Denies any specific chest pain or shortness of breath. Reports intermittent swelling in her feet as well and feels it was worse today. Notes she was taken off of spironolactone before thinks she urinated frequently, she is unsure why she was taken off of clonidine. Does confirm she is taking her carvedilol and losartan and the 10 mg twice daily of hydralazine. Patient reports overall she just feels unwell. Also endorses 4 days ago she had some abdominal cramping and diarrhea for 4 days that has been resolved, no nausea or vomiting. [facility] Medical History Elevated blood pressure reading with diagnosis of hypertension Hypertension Morbid obesity Restless leg syndrome Neuropathy Lumbar radiculopathy Cervical spinal stenosis Lumbar spinal stenosis History of migraine GERD (gastroesophageal reflux disease) CHRISTIANA (obstructive sleep apnea) Osteoarthritis DVT (deep venous thrombosis) Post-menopausal Dyspnea History of stress test Ovarian tumor Anticoagulant long-term use Non Hodgkin's lymphoma Dehiscence of surgical wound GERD (gastroesophageal reflux disease) Restless leg syndrome Peripheral neuropathy Osteoarthritis Hypertension Home Medications ?Medication ?Instructions ?Recorded ?Last Taken ?Type multivitamin with folic acid 400 1 tab PO DAILY vitamin 08/01/18 11/25/24 History mcg tablet (Thera) apixaban 5 mg tablet 5 mg PO BID blood thinner 08/13/20 11/25/24 History levothyroxine 75 mcg tablet 75 mcg PO DAILY thyroid 07/30/22 11/25/24 History carvedilol 25 mg tablet 25 mg PO BID blood pressure 03/24/24 11/25/24 History gabapentin 400 mg capsule 400 mg PO BID nerve pain 03/24/24 11/25/24 History meclizine 25 mg tablet 25 mg PO TID PRN dizziness 07/04/24 Unknown History omeprazole 20 mg capsule,delayed 20 mg PO DAILY PRN acid reflux 07/04/24 11/25/24 History release acetaminophen 325 mg tablet 1,000 mg (3.0769 x 325 mg) PO Q8H 04/04/25 Unknown Rx PRN PRN Pain 1-10 Or Fever>100.7 #0 tabs losartan 100 mg tablet 100 mg PO DAILY 05/15/25 Unknown History spironolactone 25 mg tablet 25 mg PO DAILY 05/15/25 Unknown History atogepant 60 mg tablet (Qulipta) 60 mg PO DAILY 06/07/25 Unknown History Allergy/AdvReac Type Severity Reaction Status Date / Time COVID-19 vaccine, mRNA, Allergy Anaphylaxis Verified 06/07/25 12:29 [id number], erythromycin base Allergy Rash Verified 06/07/25 12:29 (Erythromycin Base) lisinopril Allergy Swelling Verified 06/07/25 12:29 venom-wasp (wasp) Allergy NEEDS Verified 06/07/25 12:29 FOLLOW-UP amlodipine AdvReac Swelling Verified 06/07/25 12:29 latex AdvReac Swelling Verified 06/07/25 12:29 Family History Mother Hypertension Surgical History S/P laparoscopic cholecystectomy S/P hysterectomy H/O laminectomy History of partial nephrectomy History of tonsillectomy History of total knee arthroplasty History of total abdominal hysterectomy Social History Smoking Status: Never smoker ROS ROS Narrative General: Denies fever/chills HENT: Intermittent headaches and top of her head, reports it is usually better to some extent always, denies stuffy nose, denies sore throat EYES: ? Vision is weird? sometimes off-and-on Resp: Denies cough, denies shortness of breath Cardiac: Denies chest pain GI: Denies abdominal pain, denies changes in bowel, denies nausea/vomiting, did recently have some abdominal cramping and diarrhea this resolved : Reports sometimes she urinates frequently and sometimes will go a whole day without urinating Extremity: Swelling intermittently in lower extremities, somewhat worse today MSK: Denies weakness Neuro: Denies any numbness/tingling Heme: Denies any bleeding or bruising Skin: Denies rashes Psychiatric: No complaints voiced Vital Signs Vital Signs Vital Signs: 06/07/25 12:25 06/07/25 13:25 06/07/25 13:35 Temperature 98.5 F Temperature Source Oral Pulse Rate 65 Respiratory Rate 11 L Respiratory Pattern Normal Blood Pressure 226/95 H 166/136 H Blood Pressure Mean 138 146 Pulse Ox 99 Oxygen Delivery Method Room Air 06/07/25 13:38 06/07/25 14:00 06/07/25 14:16 Temperature Temperature Source Pulse Rate 67 64 Respiratory Rate 16 Respiratory Pattern Blood Pressure 214/85 H 236/63 H Blood Pressure Mean 128 120 Pulse Ox 98 Oxygen Delivery Method 06/07/25 15:16 06/07/25 15:57 Temperature 97.8 F Temperature Source Pulse Rate 65 71 Respiratory Rate 14 17 Respiratory Pattern Blood Pressure 211/85 H 221/78 H Blood Pressure Mean 127 125 Pulse Ox 98 100 Oxygen Delivery Method Room Air Weight Weight: 116.5 kg Body Mass Index (BMI) 47.0 Physical Exam Narrative General: Alert, oriented, no apparent distress HEENT: Atraumatic, normocephalic Eyes: Anicteric, normal conjunctiva, extraocular movements grossly intact Neck: Supple Respiratory: Clear to auscultation bilaterally, normal respiratory effort Cardiovascular: Regular rate and rhythm GI: Soft, nontender, nondistended Extremities: Has some nonpitting peripheral edema Musculoskeletal: Moving all extremities Neuro: No overt focal neurological deficits Skin: No rashes appreciated Psych: Cooperative Results Lab / Micro Data 06/07/25 12:33 06/07/25 12:33 Labs: Laboratory Results - last 24 hr 06/07/25 12:33: WBC 3.9 L, RBC 4.15 L, Hgb 13.3, Hct 39.3, MCV 94.7, MCH 32.0, MCHC 33.8, RDW Std Deviation 45.2 H, RDW Coeff of [place] 13.0, Plt Count 157, MPV 9.7, Immature Gran % (Auto) 0.300, Neut % (Auto) 51.7, Lymph % (Auto) 30.7, [place] % (Auto) 12.7 H, Eos % (Auto) 4.1, Baso % (Auto) 0.5, Absolute Neuts (auto) 2.0, Absolute Lymphs (auto) 1.19, Nucleated RBC % 0, Sodium 144, Potassium 3.6, Chloride 105, Carbon Dioxide 26.8, Anion Gap 11, BUN 11, Creatinine 0.71, Estim Creat Clear Calc 66.74, Est GFR (MDRD) Non-Af 86, BUN/Creatinine Ratio 15.0, Glucose 94, Calcium 9.5 06/07/25 13:16: Urine Color Straw, Urine Clarity Clear, Urine pH 8.0, Ur Specific [place] 1.010, Urine Protein Negative, Urine Glucose (UA) Normal, Urine Ketones Negative, Urine Occult Blood 10 H, Urine Nitrite Negative, Urine Bilirubin Negative, Urine Urobilinogen Normal, Ur Leukocyte Esterase Negative, Urine RBC 0 SEEN, Urine WBC 0 SEEN, Ur Squamous Epith Cells 0 SEEN, Urine Bacteria 0 SEEN, Urine Mucus 0 SEEN Rhythm Strip Rhythm Strip: Sinus Rhythm Rate: 64 Ectopy: None Imaging Radiology Impression Brain CT 06/07/25 13:29 IMPRESSION: 1. No evidence of intracranial hemorrhage or acute ischemia. 2. Changes of chronic microvascular ischemia and volume loss. Reading Location: [facility] Assessment & Plan Assessment/Plan (1) Accelerated hypertension: PLAN: Plan # Accelerated hypertension - Blood pressure on arrival 226/95, remained in the 200s despite labetalol and hydralazine and patient taking her home medications this a.m. -Patient has a myriad of somatic complaints that wax and wane and could not directly associate the symptomatology with blood pressure though do suspect this is contributing -At present time patient with no oxygen requirement, no chest pain, kidney function at baseline -Continue carvedilol 25 mg twice daily -Continue losartan 100 mg daily -Will add hydrochlorothiazide to patient's regimen attended diuretic given she is already maximized on 2 other agents -Patient was only on hydralazine 10 twice daily to take her blood pressure over 150, will DC at this time in favor of starting hydrochlorothiazide which can be further adjusted and/or medication change in outpatient basis -Will check TSH -Did have recent echo which showed an EF of 70% -CT head in the ED no acute process -Discussed importance of treating sleep apnea as below # History of CHRISTIANA -Reports she was previously told she had a history of CHRISTIANA but was not able to tolerate CPAP mask -Discussed the importance given her resistant hypertension especially and to follow-up with her PCP for further discussion about this and she verbalized understanding # History of DVT -Continue Eliquis #Hypothyroidism -Continue Synthroid #GERD -Continue PPI, pt takes prn # History of neuropathy -Continue gabapentin #DVT ppx: Patient already on Eliquis Maria Isabel Glover MD Charges/Coding Visit Charges Inpatient E&M: 71652 Init Hosp L2
[2025-06-07] MEDS: 0.9% Saline Lock 10 ML Syringe IV (19:13)
[2025-06-07] MEDS: APIXABAN 5 MG TABLET PO (20:51)
[2025-06-08 01:46] VITALS: BP 127/63; PULSE 66; RESP 16; TEMP 36.7; O2SAT 97
[2025-06-08 05:14] LABS: Hematocrit 37.6 % (37-47); Hemoglobin 12.4 g/dL (12.0-15.0); Immature Granulocytes Count 0.010 X10^3/uL (0.0-0.0); Mean Corp Hgb Conc 33.0 g/dL (32-36); Mean Corpuscular Volume 94.7 fL (81-99); Mean Platelet Vol. 9.7 fl (6.2-12.0); NRBC Flagged by Analyzer 0 % (0-5); Platelet Count 145 K/mm3 (150-450); RBC Distribution Width CV 13.2 % (11.6-14.6); RBC Distribution Width SD 46.2 fl (35.1-43.9); Red Blood Count 3.97 M/mm3 (4.2-5.4); White Blood Count 3.9 K/mm3 (4.4-11.0)
[2025-06-08 05:46] VITALS: BMI 44.6
[2025-06-08 05:53] LABS: Anion Gap 13 (5-15); BUN 13 mg/dL (4-19); BUN/Creat Ratio 17.0 RATIO (10-20); Calcium,Total 9.1 mg/dL (7.6-11.0); Carbon Dioxide 24.7 mmol/L (21.0-32.0); Chloride 104 mmol/L (98-108); Estimated Creatinine Clearance 64.76 ml/min (50-250); Glucose 109 mg/dL (70-99); Potassium 3.5 mmol/L (3.3-5.1)
--- NOTE | 2025-06-08 07:26 | PCM.PN.HOSP ---
Reason for Visit Chief Complaint: High blood pressure Objective Data Objective Data Vital Signs: Vital Signs Temp Pulse Resp BP Pulse Ox O2 Del Method 98.1 F 66 16 127/63 H 97 Room Air 06/08/25 01:46 06/08/25 01:46 06/08/25 01:46 06/08/25 01:46 06/08/25 01:46 06/08/25 01:47 Oxygen Delivery Method Room Air Weight: 244 lb 4.355 oz Body Mass Index (BMI) 44.6 Lab / Micro Data 06/08/25 04:56 06/08/25 04:56 Labs: Laboratory Results - last 24 hr 06/07/25 12:33: WBC 3.9 L, RBC 4.15 L, Hgb 13.3, Hct 39.3, MCV 94.7, MCH 32.0, MCHC 33.8, RDW Std Deviation 45.2 H, RDW Coeff of [place] 13.0, Plt Count 157, MPV 9.7, Immature Gran % (Auto) 0.300, Neut % (Auto) 51.7, Lymph % (Auto) 30.7, [place] % (Auto) 12.7 H, Eos % (Auto) 4.1, Baso % (Auto) 0.5, Absolute Neuts (auto) 2.0, Absolute Lymphs (auto) 1.19, Nucleated RBC % 0, Sodium 144, Potassium 3.6, Chloride 105, Carbon Dioxide 26.8, Anion Gap 11, BUN 11, Creatinine 0.71, Estim Creat Clear Calc 66.74, Est GFR (MDRD) Non-Af 86, BUN/Creatinine Ratio 15.0, Glucose 94, Calcium 9.5 06/07/25 13:16: Urine Color Straw, Urine Clarity Clear, Urine pH 8.0, Ur Specific [place] 1.010, Urine Protein Negative, Urine Glucose (UA) Normal, Urine Ketones Negative, Urine Occult Blood 10 H, Urine Nitrite Negative, Urine Bilirubin Negative, Urine Urobilinogen Normal, Ur Leukocyte Esterase Negative, Urine RBC 0 SEEN, Urine WBC 0 SEEN, Ur Squamous Epith Cells 0 SEEN, Urine Bacteria 0 SEEN, Urine Mucus 0 SEEN 06/08/25 04:56: WBC 3.9 L, RBC 3.97 L, Hgb 12.4, Hct 37.6, MCV 94.7, MCH 31.2, MCHC 33.0, RDW Std Deviation 46.2 H, RDW Coeff of [place] 13.2, Plt Count 145 L, MPV 9.7, Immature Gran % (Auto) 0.300, Neut % (Auto) 43.0 L, Lymph % (Auto) 33.8, [place] % (Auto) 18.2 H, Eos % (Auto) 4.4, Baso % (Auto) 0.3, Absolute Neuts (auto) 1.7 L, Absolute Lymphs (auto) 1.30, Nucleated RBC % 0, Sodium 141, Potassium 3.5, Chloride 104, Carbon Dioxide 24.7, Anion Gap 13, BUN 13, Creatinine 0.76, Estim Creat Clear Calc 64.76, Est GFR (MDRD) Non-Af 79, BUN/Creatinine Ratio 17.0, Glucose 109 H, Calcium 9.1, TSH 1.840 Radiography Diagnostic Testing: Radiology Impression Brain CT 06/07/25 13:29 IMPRESSION: 1. No evidence of intracranial hemorrhage or acute ischemia. 2. Changes of chronic microvascular ischemia and volume loss. Reading Location: [id number] Rhythm Strip Rhythm Strip: Sinus Rhythm Rate: 64 Ectopy: None Physical Exam Narrative Seen and examined. Patient complained of headache left-sided head, temporal region and neck area. She said she is to have more headache when she was young and then it dissipated. When asked further about diagnosis of chronic migraine headache she denied and she is not on antimigraine medication. She denies other chronic headache like tension headache or cluster headache. Complain of dizziness but denies vertigo now. Physical exam General: Alert, Oriented x3, Cooperative HEENT: Atraumatic, PERRLA, EOMI, Normocephalic. Oral: No Gingival or Mucosal Lesions/ Ulcerations Neck: Supple, No JVD, Negative Carotid Bruits Chest wall/Lungs: Air entry diminished in bilateral lung bases. No crepitation/rhonchi Cardiovascular: Regular rate and rhythm, Normal S1,S2, No M/G/R Abdomen: Bowel Sounds Present, Soft, Non Tender, Non-Distended : No dysuria. No renal angle tenderness. No suprapubic tenderness. Extremities: No edema, Capillary Refill Less than 3 Seconds Skin: No rashes, No breakdown Musculoskeletal: No Tenderness to Palpation of Joints or Extremities Neurological: Cranial nerves II-XII grossly intact, DTR 2+/4. Mild tenderness over left-sided head and scalp and neck area Psych/Mental Status: Flat affect Assessment & Plan Assessment/Plan (1) Accelerated hypertension: PLAN: Plan # Accelerated hypertension - Blood pressure on arrival 226/95, remained in the 200s despite labetalol and hydralazine and patient taking her home medications this a.m. -Did have recent echo which showed an EF of 70% -CT head in the ED no acute process -Discussed importance of treating sleep apnea as below 06/08: Blood pressure was high at time of admission but now it is about 127/65-148/65. TSH 1.84. Electrolytes are in normal range. Kidney function normal limit. Patient on carvedilol 25 twice daily, losartan 100 mg daily. HCTZ 25 mg daily added yesterday. Headache, etiology unclear: She denies known diagnosis of chronic migraine headache but it is persistence since yesterday night. Toradol 15 mg IV tried but is still headache persistent therefore started on IV dexamethasone and Depakote. CT head does not show acute intracranial hemorrhage or acute ischemia. # History of CHRISTIANA -Reports she was previously told she had a history of CHRISTIANA but was not able to tolerate CPAP mask -Discussed the importance given her resistant hypertension especially and to follow-up with her PCP for further discussion about this and she verbalized understanding # History of DVT -Continue Eliquis #Hypothyroidism -Continue Synthroid #GERD -Continue PPI, pt takes prn # History of neuropathy -Continue gabapentin #DVT ppx: Patient already on Eliquis Laboratory Results 06/08/25 04:56: WBC 3.9 L, RBC 3.97 L, Hgb 12.4, Hct 37.6, MCV 94.7, MCH 31.2, MCHC 33.0, RDW Std Deviation 46.2 H, RDW Coeff of [place] 13.2, Plt Count 145 L, MPV 9.7, Immature Gran % (Auto) 0.300, Neut % (Auto) 43.0 L, Lymph % (Auto) 33.8, [place] % (Auto) 18.2 H, Eos % (Auto) 4.4, Baso % (Auto) 0.3, Absolute Neuts (auto) 1.7 L, Absolute Lymphs (auto) 1.30, Nucleated RBC % 0, Sodium 141, Potassium 3.5, Chloride 104, Carbon Dioxide 24.7, Anion Gap 13, BUN 13, Creatinine 0.76, Estim Creat Clear Calc 64.76, Est GFR (MDRD) Non-Af 79, BUN/Creatinine Ratio 17.0, Glucose 109 H, Calcium 9.1, TSH 1.840 Clinical Impression(s) from Imaging Studies Brain CT 06/07/25 13:29 IMPRESSION: 1. No evidence of intracranial hemorrhage or acute ischemia. 2. Changes of chronic microvascular ischemia and volume loss. Charges/Coding Visit Charges Inpatient E&M: 30704 Subs Hosp L2
[2025-06-08 08:11] VITALS: BP 148/65; PULSE 58; RESP 18; TEMP 36.4; O2SAT 96
[2025-06-08] MEDS: APIXABAN 5 MG TABLET PO ×2 (08:24→22:04)
[2025-06-08] MEDS: 0.9% Saline Lock 10 ML Syringe IV ×4 (08:24→15:43)
[2025-06-08 08:25] VITALS: PULSE 58
[2025-06-08] MEDS: 0.9% Normal Saline (250mL Bag) 250 ML 15 ML IV (13:58)
[2025-06-08] MEDS: Valproate Sodium 500 MG in Dextrose 5%-Water (50mL Bag) 50 ML 50 MG IV ×2 (14:02→22:10)
[2025-06-08 14:08] VITALS: BP 127/65; PULSE 64; RESP 17; TEMP 36.4; O2SAT 99
[2025-06-08 17:14] VITALS: BP 147/63; PULSE 71
[2025-06-08 22:00] VITALS: BP 161/79; PULSE 82; RESP 18; TEMP 36.1; O2SAT 96
[2025-06-09 03:11] VITALS: BMI 45.8
[2025-06-09] MEDS: Valproate Sodium 500 MG in Dextrose 5%-Water (50mL Bag) 50 ML 50 MG IV ×2 (05:29→14:23)
[2025-06-09 05:30] VITALS: BP 163/86; PULSE 78; RESP 16; TEMP 35.9; O2SAT 96
--- NOTE | 2025-06-09 08:43 | DCINST_ITS ---
Discharge Instructions DC O2, CPAP, BIPAP needs Home O2 Discharge instructions: No Dressing / Incision Discharge Activity: Return to Normal Activity Weight Bearing Status: Weight bearing as tolerated Dressing / Incision Call your doctor if you observe: Fever of 101 or Higher, Coldness, Increased Pain, Numbness or Tingling, Change in Color, Inability to urinate, Inability to have a bowel movement, Shortness of breath, Dizziness, Fainting spells, Swelling in the ankles, Chest pain, Prolonged hiccupping, Increased palpitations (irregular heartbeat) and Calf discomfort Follow Up Care When: IN 2 WEEKS Test Results: Test results from this visit will be discussed in further detail at your follow- up appointment, if applicable. Discharge Plan Admission Admit Date/Time: 06/08/25 17:27 Primary Reason for Your Visit: Headache, dizziness, hypertensive urgency Attending Provider: Zach Chairez Primary Care Provider: Ever Kilgore Consulting Providers: Maria Isabel Glover Instructions Additional Instructions / Restrictions: Patient on specific antimigraine medication called Gabby although she denies diagnosis of migraine headache when asked twice by different physician by admitting hospitalist and myself. Follow-up with neurologist for chronic headache and migraine Discharge Orders/Prescriptions Prescriptions: New chlorthalidone 25 mg tablet 25 mg PO DAILY Qty: 30 3RF Rx Instructions: Hold if serum sodium is less than 130 mg/dL Continued multivitamin with folic acid [Thera] 1 TABLET tablet 1 tab PO DAILY apixaban 5 MG tablet 5 mg PO BID levothyroxine 75 mcg Tablet 75 mcg PO DAILY carvedilol 25 mg tablet 25 mg PO BID gabapentin 400 mg capsule 400 mg PO BID spironolactone 25 mg tablet 25 mg PO DAILY Patient Comments: its been a while since I have taken it losartan 100 mg tablet 100 mg PO DAILY Qulipta 60 mg tablet 60 mg PO DAILY omeprazole 20 mg capsule,delayed release(DR/EC) 20 mg PO DAILY PRN (Reason: acid reflux) meclizine 25 mg tablet 25 mg PO TID PRN (Reason: dizziness) Patient Comments: PT STATES SHE SHOULD TAKE THIS BUT DOESN'T, ONLY IF SHE IS DIZZY. acetaminophen 325 mg Tablet 1,000 mg PO Q8H PRN PRN (Reason: Pain 1-10 Or Fever>100.7) Qty: 0 0RF Referrals / Follow Up: Sathya Daigle MD [Med Staff - Active Staff, Ear Nose Throat (ENT)] Referral Note: Chronic dizziness/sometimes vertigo Ever Kilgore MD [Primary Care Provider, Medical] - Within 2 Weeks Disposition Disposition (needs filled in before D/C Order can be placed): Home, Self Care
[2025-06-09 08:46] VITALS: BP 173/96; PULSE 84; RESP 18; TEMP 36.4; O2SAT 97
[2025-06-09] MEDS: APIXABAN 5 MG TABLET PO (08:51)
[2025-06-09 13:01] VITALS: BP 155/68; PULSE 84; RESP 17; TEMP 36.7; O2SAT 97
--- NOTE | 2025-06-09 13:45 | CASEMGMT ---
Addendum entered by Tex Case 06/09/25 16:18: 2 PM: Per Elissa @ [facility], they are able to accept pt. Original Note: RN?CM?ASSESSMENT ? RN?CM?to room to meet with patient for initial transition planning/care coordination?assessment.?RN?CM?introduced self and role at [facility].? Pt voices understanding and consents to?assessment?at this time.? Pt just returned to room after working w/therapy, sitting up in chair now. Pt is A/O at this time and answers all questions appropriately.?? Care providers, pharmacy, and demographics verified/updated at this time. ? Strata: 3 PCP: Dr Kilgore Specialists: Dr Quintero-oncology, Dr Woodall-[facility] Preferred Pharmacy: [facility] Insurance: [employer], [facility] Prescription Benefit:?yes LNOK: SonJosse. Daughter, Shauna Living Arrangements: Lives alone in 1st floor apt w/no steps to enter. Independent w/ADL's and most IADL's. Daughter takes pt to grocery store weekly and meals. Pt often will sit in the car while daughter is in the store. Pt manages her own medications. Transportation:?Pt drives locally/short distances when she is feeling well. Otherwise, daughter provides transportation. DME: [facility] has the following DME:?walker, rollator, cane, shower chair, grab bars, BP machine, pulse ox. ?Pt states no need for further DME at this time.? HHC/SNF: Pt has had HHC in the past. She has been to [place] and [place]. Pt states she would not want to return to [place] again. ? Discussed discharge planning. Pt wishes to return home and states has no concerns with going home at time of discharge. Pt and daughter would like [facility] & decline wanting list of other [facility] agencies unless [facility] unable to accept her. Discussed [employer]'s homebound criteria for HHC. Both pt and daughter feel pt meets the criteria, as daughter states pt often does not leave her home because it's not easy for her to get out/go places d/t weakness and assistance needed. Call placed to Elissa @ [facility] and referral made. CM?to follow for any further discharge planning/needs.? Pt voices no further concerns/needs at this time.? Advised pt and dtr to ask for?CM?if any further questions/concerns/needs arise.? They voice understanding. ? PLAN:??Home w/HHC. ? Fidel BSN?RN?CM ?
--- NOTE | 2025-06-09 13:55 | PCM.DC.SUM ---
Providers Date of Admission: 06/07/25 Date of Discharge: 06/09/25 Primary Care Physician: Dr. Ever Kilgore MD Reason For Visit: ACCELERATED HYPERTENSION Diagnosis Discharge Diagnosis (1) Accelerated hypertension: Status: Acute Code(s): I10 - Essential (primary) hypertension Plan 79-year-old female was admitted with dizziness worsening along with high blood pressure for past 2 to 3 weeks. She has long history of vertigo and dizziness and lightheadedness. In ED, her SBP was more than 200 mmHg couple times before admission Patient was admitted with headache left-sided head, temporal region and neck area. She said she used to have more headache when she was young and then it dissipated. When asked further about diagnosis of chronic migraine headache she denied and she is not on antimigraine medication. She denies other chronic headache like tension headache or cluster headache. # Accelerated hypertension/hypertensive urgency - Blood pressure on arrival 226/95, remained in the 200s despite labetalol and hydralazine and patient taking her home medications this a.m. -Did have recent echo which showed an EF of 70% -CT head in the ED no acute process -Discussed importance of treating sleep apnea as below 06/08: Blood pressure was high at time of admission but now it is about 127/65-148/65. TSH 1.84. Electrolytes are in normal range. Kidney function normal limit. Patient on carvedilol 25 twice daily, losartan 100 mg daily. HCTZ 25 mg daily added yesterday. 06/09: Blood pressure is better controlled. Patient discharged on 3 antihypertensive medication full dose carvedilol 25 mg twice daily, losartan 100 mg daily and chlorthalidone 25 mg daily. If her blood pressure is not controlled then she will the criteria for resistant hypertension and will need workup to rule out secondary cause of hypertension by PCP/mc kay stitcher. She will also need to treatment of sleep apnea as she was told but she is not using CPAP Headache, etiology unclear probably due to migraine: She denies known diagnosis of chronic migraine headache but it is persistence since yesterday night. Toradol 15 mg IV tried but is still headache persistent therefore started on IV dexamethasone and Depakote. CT head does not show acute intracranial hemorrhage or acute ischemia. 06/09: Surprisingly it seems she has chronic migraine and she takes a specific medication, Qulipta # History of CHRISTIANA -Reports she was previously told she had a history of CHRISTIANA but was not able to tolerate CPAP mask -Discussed the importance given her resistant hypertension especially and to follow-up with her PCP for further discussion about this and she verbalized understanding # History of DVT -Continue Eliquis #Hypothyroidism -Continue Synthroid #GERD -Continue PPI, pt takes prn # History of neuropathy -Continue gabapentin #DVT ppx: Patient already on Eliquis Discharge medication reconciliation done. Discharge follow-up instructions completed. Discharge process discussed with the patient and all questions were answered to patient's satisfaction. Follow with PCP in 1 to 2 weeks Total time spent, exact 35 minutes on discharge meds reconciliation, examination, coordination of care with nurses and ancillary staff, review of imaging and blood test and discussion with the patient on follow-up instructions. Laboratory Results 06/08/25 04:56: WBC 3.9 L, RBC 3.97 L, Hgb 12.4, Hct 37.6, MCV 94.7, MCH 31.2, MCHC 33.0, RDW Std Deviation 46.2 H, RDW Coeff of [place] 13.2, Plt Count 145 L, MPV 9.7, Immature Gran % (Auto) 0.300, Neut % (Auto) 43.0 L, Lymph % (Auto) 33.8, [place] % (Auto) 18.2 H, Eos % (Auto) 4.4, Baso % (Auto) 0.3, Absolute Neuts (auto) 1.7 L, Absolute Lymphs (auto) 1.30, Nucleated RBC % 0, Sodium 141, Potassium 3.5, Chloride 104, Carbon Dioxide 24.7, Anion Gap 13, BUN 13, Creatinine 0.76, Estim Creat Clear Calc 64.76, Est GFR (MDRD) Non-Af 79, BUN/Creatinine Ratio 17.0, Glucose 109 H, Calcium 9.1, TSH 1.840 Clinical Impression(s) from Imaging Studies Brain CT 06/07/25 13:29 IMPRESSION: 1. No evidence of intracranial hemorrhage or acute ischemia. 2. Changes of chronic microvascular ischemia and volume loss. Medications at Discharge Home Medications multivitamin with folic acid 400 mcg tablet (Thera) 1 tab PO DAILY vitamin 08/01/18 apixaban 5 mg tablet 5 mg PO BID blood thinner 08/13/20 levothyroxine 75 mcg tablet 75 mcg PO DAILY thyroid 07/30/22 carvedilol 25 mg tablet 25 mg PO BID blood pressure 03/24/24 gabapentin 400 mg capsule 400 mg PO BID nerve pain 03/24/24 meclizine 25 mg tablet 25 mg PO TID PRN dizziness 07/04/24 omeprazole 20 mg capsule,delayed release 20 mg PO DAILY PRN acid reflux 07/04/24 acetaminophen 325 mg tablet 1,000 mg (3.0769 x 325 mg) PO Q8H PRN PRN Pain 1-10 Or Fever>100.7 #0 tabs 04/04/25 losartan 100 mg tablet 100 mg PO DAILY 05/15/25 spironolactone 25 mg tablet 25 mg PO DAILY 05/15/25 atogepant 60 mg tablet (Qulipta) 60 mg PO DAILY 06/07/25 chlorthalidone 25 mg tablet 25 mg PO DAILY #30 tabs 06/09/25 Physical Exam Narrative Seen and examined. Morning today patient headache is much better. Dizziness also better. Blood pressure 155/68. Physical exam General: Alert, Oriented x3, Cooperative HEENT: Atraumatic, PERRLA, EOMI, Normocephalic. Oral: No Gingival or Mucosal Lesions/ Ulcerations Neck: Supple, No JVD, Negative Carotid Bruits Chest wall/Lungs: Air entry diminished in bilateral lung bases. No crepitation/rhonchi Cardiovascular: Regular rate and rhythm, Normal S1,S2, No M/G/R Abdomen: Bowel Sounds Present, Soft, Non Tender, Non-Distended : No dysuria. No renal angle tenderness. No suprapubic tenderness. Extremities: No edema, Capillary Refill Less than 3 Seconds Skin: No rashes, No breakdown Musculoskeletal: No Tenderness to Palpation of Joints or Extremities Neurological: Cranial nerves II-XII grossly intact, DTR 2+/4. No acute tenderness over left-sided head and scalp and neck area Psych/Mental Status: Flat affect Weight / BMI Weight Weight: 250 lb 14.177 oz Body Mass Index (BMI) 45.8 ABG / Lab / Microbiology Data 06/08/25 04:56 06/08/25 04:56 D/C Instructions Weight Bearing Status: Weight bearing as tolerated Call your doctor if you observe: Fever of 101 or Higher, Coldness, Increased Pain, Numbness or Tingling, Change in Color, Inability to urinate, Inability to have a bowel movement, Shortness of breath, Dizziness, Fainting spells, Swelling in the ankles, Chest pain, Prolonged hiccupping, Increased palpitations (irregular heartbeat) and Calf discomfort DC O2, CPAP, BIPAP Needs Home O2 Discharge instructions: No When: IN 2 WEEKS Meaningful Use Info Meaningful Use Meaningful Use Diagnoses (Choose all that apply): None applicable Discharge Plan Admission Admit Date/Time: 06/08/25 17:27 Primary Reason for Your Visit: Headache, dizziness, hypertensive urgency Attending Provider: Zach Chairez Primary Care Provider: Ever Kilgore Consulting Providers: Maria Isabel Glover Instructions Additional Instructions / Restrictions: Patient on specific antimigraine medication called Qulipta although she denies diagnosis of migraine headache when asked twice by different physician by admitting hospitalist and myself. Follow-up with neurologist for chronic headache and migraine Discharge Orders/Prescriptions Prescriptions: New chlorthalidone 25 mg tablet 25 mg PO DAILY Qty: 30 3RF Rx Instructions: Hold if serum sodium is less than 130 mg/dL Continued multivitamin with folic acid [Thera] 1 TABLET tablet 1 tab PO DAILY apixaban 5 MG tablet 5 mg PO BID levothyroxine 75 mcg Tablet 75 mcg PO DAILY carvedilol 25 mg tablet 25 mg PO BID gabapentin 400 mg capsule 400 mg PO BID spironolactone 25 mg tablet 25 mg PO DAILY Patient Comments: its been a while since I have taken it losartan 100 mg tablet 100 mg PO DAILY Qulipta 60 mg tablet 60 mg PO DAILY omeprazole 20 mg capsule,delayed release(DR/EC) 20 mg PO DAILY PRN (Reason: acid reflux) meclizine 25 mg tablet 25 mg PO TID PRN (Reason: dizziness) Patient Comments: PT STATES SHE SHOULD TAKE THIS BUT DOESN'T, ONLY IF SHE IS DIZZY. acetaminophen 325 mg Tablet 1,000 mg PO Q8H PRN PRN (Reason: Pain 1-10 Or Fever>100.7) Qty: 0 0RF Referrals / Follow Up: Sathya Daigle MD [Med Staff - Active Staff, Ear Nose Throat (ENT)] Referral Note: Chronic dizziness/sometimes vertigo Ever Kilgore MD [Primary Care Provider, Medical] - Within 2 Weeks Disposition Disposition (needs filled in before D/C Order can be placed): Home, Self Care Charges/Coding Visit Charges Inpatient E&M: 46494 Disch Hosp >30min
--- NOTE | 2025-06-09 14:16 | CASEMGMT ---
Previous RN ARIK reports that HHC has been established through [facility] with SOC date TBD. TC to Elissa @ [facility] and reports that SOC is Friday. FRANCESCO ELISE to the pt's room at this time, pt's daughter at bedside. Notified pt and pt's daughter with SOC date who are agreeable. Notified pt that Rx has been sent to [facility] and daughter states that she is OK with this and that she will get them. Pt denies any further DC needs or concerns.
--- NOTE | 2025-06-09 14:20 | PHA.DC_ITS ---
Pharmacy [facility] has performed discharge medication counseling for this patient. The patient was counseled on the following discharge medications and changes in medications for homegoing review. - Chlorthalidone 25 mg tablet The Reason for Use, instructions for use, and potential side effects were reviewed for all new medications. The patient's questions regarding all of their medications were answered. The patient was able to verbally demonstrate an understanding of their discharge medications. Medications at Discharge Home Medications multivitamin with folic acid 400 mcg tablet (Thera) 1 tab PO DAILY vitamin 08/01/18 apixaban 5 mg tablet 5 mg PO BID blood thinner 08/13/20 levothyroxine 75 mcg tablet 75 mcg PO DAILY thyroid 07/30/22 carvedilol 25 mg tablet 25 mg PO BID blood pressure 03/24/24 gabapentin 400 mg capsule 400 mg PO BID nerve pain 03/24/24 meclizine 25 mg tablet 25 mg PO TID PRN dizziness 07/04/24 omeprazole 20 mg capsule,delayed release 20 mg PO DAILY PRN acid reflux 07/04/24 acetaminophen 325 mg tablet 1,000 mg (3.0769 x 325 mg) PO Q8H PRN PRN Pain 1-10 Or Fever>100.7 #0 tabs 04/04/25 losartan 100 mg tablet 100 mg PO DAILY blood pressure 05/15/25 spironolactone 25 mg tablet 25 mg PO DAILY diuretic 05/15/25 atogepant 60 mg tablet (Qulipta) 60 mg PO DAILY migraines 06/07/25 chlorthalidone 25 mg tablet 25 mg PO DAILY #30 tabs 06/09/25
[2025-06-09] MEDS: 0.9% Saline Lock 10 ML Syringe IV (14:23)
[2025-06-09 16:05] VITALS: BP 163/76; PULSE 82; RESP 17; TEMP 36.7; O2SAT 98
== END 2025-06-09 16:32 | disposition home health service (06) | DRG 305 ==
LOC: ED 16:02 → PCU 16:11
PROVIDERS: Admitting Provider Internal Medicine; Emergency Provider Emergency Medicine; PCP Family Medicine; Visit Provider Internal Medicine
DX: I16.0 Hypertensive urgency (principal); Z68.41 Body mass index [BMI] 40.0-44.9, adult; E03.9 Hypothyroidism, unspecified; I10 Essential (primary) hypertension; K21.9 Gastro-esophageal reflux disease without esophagitis; E66.01 Morbid (severe) obesity due to excess calories; G43.709 Chronic migraine without aura, not intractable, without status migrainosus; G47.33 Obstructive sleep apnea (adult) (pediatric); Z86.718 Personal history of other venous thrombosis and embolism; Z79.01 Long term (current) use of anticoagulants; Z79.899 Other long term (current) drug therapy
CPT/HCPCS: 36415; 70450; 80048; 81001; 84443; 85025; 93005; 94640; 97162; 97166; 99285; A4216

== ENCOUNTER → 2025-06-13 | Outpatient (CLI) | payer MEDICARE, OTHER, SELFPAY ==
[2025-06-13 18:01] LABS: Mucous, Urine 0 SEEN /hpf (<or=2+)
[2025-06-13 19:07] LABS: Color, Urine Yellow (Yellow); Glucose, Dipstick Normal (Normal); Ketone-Dipstick Negative (Negative); Leukocyte Esterase-Dipstick Negative /ul (Negative); Nitrite-Dipstick Negative (Negative); Occult Blood-Urine Negative /ul (Negative); Protein-Dipstick 15 mg/dl (Negative); Specific Gravity, Urine 1.010 (1.002-1.030); Urine Bilirubin Dipstick Negative (Negative)
[2025-06-13 20:13] LABS: Red Blood Cells-Urine 0-5 SEEN /hpf (0-5); Squamous Epithelial Cells - UA 0-5 SEEN /hpf (5-10)
== END | disposition home or self-care (01) ==
LOC: LABSPEC 17:57
PROVIDERS: PCP Family Medicine
DX: N39.0 Urinary tract infection, site not specified (principal)
CPT/HCPCS: 81001; 87077; 87086; 87088; 87186